=== PATIENT | female | born 1970 | race Caucasian/White ===

== ENCOUNTER 2017-06-13 05:35 | Day surgery (SDC) | payer MEDICARE, SELFPAY ==
[2017-06-13] VITALS (7 sets, daily range): BP systolic 150–180; BP diastolic 100–125; PULSE 92–120; RESP 16–18; TEMP 36.4–37; O2SAT 98–100; BMI 41.8
[2017-06-13 06:03] LABS: Internal QC Validated? YES +Cl - CLEAR BKGD; Pregnancy, Urine Negative Negative
--- NOTE | 2017-06-13 07:14 | PCM.DC.ORTHO ---
Discharge Diet: No Restrictions Discharge Activity: May Not Drive Ice area for (Minutes): 20 Keep extremity elevated above heart level: Left Arm Call your doctor if your incision/area has: Continuous Slow Oozing, Sudden Increased Bleeding, Increased Pain/ Swelling, Increased Redness, Foul Smelling Discharge Call your doctor if you observe: Fever of 101 or Higher, Coldness, Increased Pain, Numbness or Tingling, Change in Color Suture Line Care: Avoid Pulling/Pushing, Avoid Pinching/Bending Change Dressing in (Days):: 5 Remove Dressing in (days):: 5 Cleanse incision/area with: Soap & Water - after removed, otherwise keep dressing clean and dry Allergies/Adverse Reactions: Allergies aspirin Adverse Reaction (Verified 06/01/17 14:07) Nausea Medications to take at Discharge Albuterol IH (ProAir) [Proair Hfa] 2 puff PO Q4H PRN PRN 11/21/15 Iron Carbonyl [Feosol] 325 mg PO DAILY 03/26/16 Amitriptyline HCl 50 mg PO QHS 06/01/17 Cyanocobalamin (Vitamin B-12) [Vitamin B-12] 1,000 mcg PO DAILY 06/01/17 Fluticasone/Salmeterol [Advair 250/50 Mcg Diskus] 1 puff INHALATION BID 06/01/17 Levothyroxine [Synthroid] 150 mcg PO DAILY 06/01/17 Lisinopril/Hydrochlorothiazide [Zestoretic 20-12.5 mg Tablet] 1 each PO DAILY 06/01/17 Lorazepam [Ativan] 1 mg PO QHS 06/01/17 Megestrol [Megace] 40 mg PO DAILY 06/01/17 traZODone [Desyrel] 50 mg PO QHS 06/01/17 Hydrocodone Bitart/Apap 5-325 [Dinwiddie 5/325] 1 - 2 tablet PO Q6H PRN PRN 7 Days #28 tablet 06/13/17 The following prescriptions were given: Hydrocodone Bitart/Apap 5-325 [Dinwiddie 5/325] 1 - 2 tablet PO Q6H PRN PRN 7 Days #28 tablet PRN Reason: Mild-Moderate (pain scale 1-5) Please Follow Up With: Bk Cobos, When: as scheduled
--- NOTE | 2017-06-13 07:18 | DCINST_ITS ---
Discharge Diet: No Restrictions Discharge Activity: May Not Drive Ice area for (Minutes): 20 Keep extremity elevated above heart level: Left Arm Call your doctor if your incision/area has: Continuous Slow Oozing, Sudden Increased Bleeding, Increased Pain/ Swelling, Increased Redness, Foul Smelling Discharge Call your doctor if you observe: Fever of 101 or Higher, Coldness, Increased Pain, Numbness or Tingling, Change in Color Suture Line Care: Avoid Pulling/Pushing, Avoid Pinching/Bending Change Dressing in (Days):: 5 Remove Dressing in (days):: 5 Cleanse incision/area with: Soap & Water - after removed, otherwise keep dressing clean and dry Allergies/Adverse Reactions: Allergies aspirin Adverse Reaction (Verified 06/01/17 14:07) Nausea Medications to take at Discharge Albuterol IH (ProAir) [Proair Hfa] 2 puff PO Q4H PRN PRN 11/21/15 Iron Carbonyl [Feosol] 325 mg PO DAILY 03/26/16 Amitriptyline HCl 50 mg PO QHS 06/01/17 Cyanocobalamin (Vitamin B-12) [Vitamin B-12] 1,000 mcg PO DAILY 06/01/17 Fluticasone/Salmeterol [Advair 250/50 Mcg Diskus] 1 puff INHALATION BID Levothyroxine [Synthroid] 150 mcg PO DAILY 06/01/17 Lisinopril/Hydrochlorothiazide [Zestoretic 20-12.5 mg Tablet] 1 each PO DAILY Lorazepam [Ativan] 1 mg PO QHS 06/01/17 Megestrol [Megace] 40 mg PO DAILY 06/01/17 traZODone [Desyrel] 50 mg PO QHS 06/01/17 Hydrocodone Bitart/Apap 5-325 [Aulander 5/325] 1 - 2 tablet PO Q6H PRN PRN 7 Days # 28 tablet 06/13/17 The following prescriptions were given: Hydrocodone Bitart/Apap 5-325 [Aulander 5/325] 1 - 2 tablet PO Q6H PRN PRN 7 Days # 28 tablet PRN Reason: Mild-Moderate (pain scale 1-5) Please Follow Up With: Bk Cobos, When: as scheduled
[2017-06-13] MEDS: HYDROcodone Bitartrate/Apap 5/325 Tablet PO (08:50)
--- NOTE | 2017-06-13 09:20 | OP.PCM_ITS ---
Report of Operation Date of Procedure: 06/13/17 Pre-Operative Diagnosis: Severe carpal tunnel syndrome Post-Operative Diagnosis: left severe carpal tunnel syndrome left Surgery/Procedure Performed:: External neurolysis median nerve left wrist Description of Surgical Findings:: Severe carpal tunnel syndrome Type of Anesthesia:: Isis Gunderson Anesthesiologist: Joaquin Goldsmith Estimated Blood Loss (mL): 5 Fluids Replaced: See anesthesia report Description of Procedure: Surgical indications: Kamala is a 46-year-old female that has severe carpal tunnel syndrome that was diagnosed via EMG. She has failed conservative measures and has elected to undergo the above procedure Procedure description: Kamala was greeted in the preoperative area her left wrist was marked with surgical marker. Preoperative antibiotics administered. Patient was then taken or [address] in stable condition. After adequate anesthesia was obtained and airway secured the arm was prepped and draped in the usual sterile fashion. Surgical timeout was performed surgery was commenced. Incision was then made in the palm not propagating distal to Roberto's line and line with the third webspace. Blunt dissection was then carried through palmar fascia identifying the transverse flexor retinaculum. A small stab incision was then made in the flexor retinaculum exposing the underlying median nerve. A [place] elevator was then used to protect the nerve as the fracture retinaculum was transected from distal to proximal to the antebrachial fascia. This was done under direct visualization. Once this was complete the distal aspect of the nerve was protected as the remaining portion of the flexor retinaculum was transected to the palmar fat pad. The nerve was then inspected under loupe magnification and noted to be without any abnormality bruising or any additional compression. This was then irrigated and the skin was closed with 4- 0 nylon. Well-padded nonadherent dressings applied with a small splint protecting the incision. This was secured with an Cristian wrap. Patient was then taken to recovery room in stable condition. - Complications none known - Admit VTE Documentation Reason prophylaxis not ordered:: Procedure Not Indicated
== END 2017-06-13 09:37 | disposition home or self-care (01) ==
LOC: SDC 05:36 → AC 05:38
PROVIDERS: Anesthesiology; Family Provider Family Medicine; PCP Family Medicine; Visit Provider Orthopaedic Surgery
PROC: (CPT 64721; principal; 2017-06-13 07:00)
DX: G56.02 Carpal tunnel syndrome, left upper limb (principal); I10 Essential (primary) hypertension; J45.909 Unspecified asthma, uncomplicated; D64.9 Anemia, unspecified; E06.9 Thyroiditis, unspecified; F32.9 Major depressive disorder, single episode, unspecified; F41.0 Panic disorder [episodic paroxysmal anxiety]; E78.00 Pure hypercholesterolemia, unspecified; E66.01 Morbid (severe) obesity due to excess calories; Z68.41 Body mass index [BMI] 40.0-44.9, adult; Z79.899 Other long term (current) drug therapy
CPT/HCPCS: 64721; 81025; J7120; J2405

== ENCOUNTER → 2017-08-18 10:03 | Outpatient (CLI) | payer MEDICARE, SELFPAY ==
[2017-08-18 11:45] LABS: Calcium,Total 9.3 mg/dL (8.5-10.1); Cholesterol 179 mg/dL (200); Glucose 93 mg/dL (74-106); High Density Lipoprotein 31 mg/dL; T4 Free Direct 0.82 ng/dL (0.76-1.46); Triglycerides 116 mg/dL; Very Low Density Lipoprotein 23 mg/dL (5-40)
[2017-08-19 09:51] LABS: PTHIN 67.9 pg/mL (18.4-80.1)
[2017-08-19 09:56] LABS: Vitamin B12 413 pg/mL (211-911)
== END ==
PROVIDERS: Family Provider Family Medicine; PCP Family Medicine; Visit Provider Nurse Practitioner Family
DX: Z13.6 Encounter for screening for cardiovascular disorders (principal); Z13.1 Encounter for screening for diabetes mellitus; E53.8 Deficiency of other specified B group vitamins; E03.9 Hypothyroidism, unspecified
CPT/HCPCS: 36415; 80061; 82310; 82533; 82607; 82746; 82947; 83970; 84244; 84439

== ENCOUNTER → 2017-08-29 13:41 | Outpatient (CLI) | payer MEDICARE, SELFPAY ==
--- NOTE | 2017-08-29 13:57 | ECHOCS_ITS ---
Reason For Study: Heart Murmur Procedure This was a 2D Doppler, Color Flow transthoracic echocardiogram. The study was technically difficult. Exam performed in department. Left Ventricle Normal LV size. Left ventricular systolic function is normal. The estimated ejection fraction is 55 %. Transmitral and pulmonary venous doppler flow suggestive of impaired relaxation of left ventricle. No regional wall motion abnormalities noted. Right Ventricle Normal RV size. Normal systolic function. Atria Normal left atrium. Normal right atrium. Mitral Valve Normal mitral valve. Tricuspid Valve Normal tricuspid valve. Aortic Valve Trisinus/trileaflet aortic valve. Mild focal aortic valve calcification. Pulmonic Valve Normal pulmonic valve. Great Vessels Normal aortic root. The pulmonary artery is normal size. Normal inferior vena cava. Pericardium/Pleural No pericardial effusion. Medication Definity0.6ml given slow IV push to enhance endocardial definition. MMode/2D Measurements & Calculations LVIDd: 4.5 cm IVSd: 1.1 cm Ao root diam: 2.9 cm LVIDs: 3.5 cm LVPWd: 1.1 cm RVDd: 1.9 cm FS: 24.1 % LAV(MOD-bp): 14.3 ml LAV(MOD-bp) Indexed: 6.6 ml/m2 LA A4 area: 8.5 cm2 RA A4 area: 8.1 cm2 LAV(MOD-sp2): 12.3 ml LAV(MOD-sp4): 14.0 ml Doppler Measurements & Calculations MV E max abdoul: 48.8 cm/sec Lat Peak E' Abdoul: 7.0 cm/sec Med Peak E' Abdoul: 4.8 cm/sec MV A max abdoul: 60.8 cm/sec E/E' lat: 6.9 E/E' med: 10.2 MV E/A: 0.80 Ao V2 max: 125.0 cm/sec LV V1 max: 91.7 cm/sec PA V2 max: 73.0 cm/sec Ao max P.3 mmHg LV V1 max P.4 mmHg Ao V2 mean: 97.2 cm/sec Ao mean P.0 mmHg Ao V2 VTI: 18.5 cm PI end-d abdoul: 104.2 cm/sec Interpretation Summary Normal LV size. Left ventricular systolic function is normal. The estimated ejection fraction is 55 %. Transmitral and pulmonary venous doppler flow suggestive of impaired relaxation of left ventricle Contrast injection was performed. Ordering Physician: JAMES Treviño Referring Physician: JAMES Treviño Performed By: Myrna Colon, SHEREEN, RVT
[2017-09-03 08:11] LABS: Cortisol, Urinary Free 2 ug/L (Undefined); Metanephrine, Ur 85 ug/L (Undefined); Normetanephrines, Ur 626 ug/L (Undefined)
[2017-09-05 10:06] LABS: Cortisol, Free 24Ur 3 ug/24 hr (0-50); Metanephrines, 24Ur 117 ug/24 hr (45-290); Normetanephrines, 24Ur 861 ug/24 hr (82-500)
== END ==
LOC: CVS 13:42
PROVIDERS: Family Provider Family Medicine; PCP Family Medicine; Visit Provider Nurse Practitioner Family
DX: R01.1 Cardiac murmur, unspecified (principal); R79.89 Other specified abnormal findings of blood chemistry
CPT/HCPCS: 82530; 83835; 93306; Q9957; A4216; C8929

== ENCOUNTER → 2017-09-09 16:25 | Outpatient (CLI) | payer MEDICARE, SELFPAY ==
--- NOTE | 2017-09-09 16:28 | CT_ITS ---
STUDY: CT ABDOMEN WITHOUT CONTRAST REASON FOR EXAM: Female, 47 years old. Elevated creatinine. Evaluate for renal mass. RADIATION DOSAGE (If Supplied By Facility): CTDIvol = ( 33.80 ) mGy, DLP = ( 1257.84 ) mGycm TECHNIQUE: Transaxial images were obtained without intravenous contrast, and without oral contrast. Sagittal and coronal images were reconstructed. Individualized dose optimization techniques were used for this CT. COMPARISON: None. FINDINGS: The visualized lung bases are unremarkable. The visualized portions of the heart are within normal limits. Evaluation of the abdominal organs is limited without contrast. There are gallstones noted in the gallbladder. The liver, spleen, pancreas and adrenal glands demonstrate an unremarkable unenhanced appearance. There are no right renal stones. There is a 3 mm nonobstructing stone in the collecting system of the left kidney. There are no adrenal masses identified on this noncontrast study. The visualized bowel demonstrates no evidence of obstruction. The aorta is normal in caliber. There is no abdominal free air, free fluid or lymphadenopathy. There are no destructive osseous lesions. CT/Abdomen without IV Contrast IMPRESSION: Evaluation of the abdominal organs is limited without contrast. No renal mass identified on this noncontrast study. 3 mm nonobstructing left renal stone. No hydronephrosis. Gallstones. Electronically Signed: Yakov Melgoza, at 20:16 EDT Tel , Service support ,
== END ==
LOC: CT 16:27
PROVIDERS: Family Provider Family Medicine; PCP Family Medicine; Visit Provider Nurse Practitioner Family
DX: N20.0 Calculus of kidney (principal); K80.80 Other cholelithiasis without obstruction; R79.89 Other specified abnormal findings of blood chemistry
CPT/HCPCS: 74150

== ENCOUNTER → 2017-09-26 13:18 | Outpatient (CLI) | payer MEDICARE, SELFPAY ==
--- NOTE | 2017-09-26 13:19 | STE_ITS ---
Reason For Study: Chest Pain, Dyspnea On Exertion Stress Results Protocol: Massimo Protocol Maximum Predicted HR: 173 bpm Target HR: 147 bpm% Max imum Predicted HR: 87 % Heart Stage Duration Rate BPCom ment (mm:ss) (bpm) Baseline 92 104/70 No Chest Pain; No Dyspnea Massimo Protocol Stage 6/10 Chest Pain; Severe Dyspnea; Audible Expiratory I 3:00 15 0 140/72Wheezes Recovery 97 106/64 No Chest Pain; No Dyspnea; Lungs CTA Stress Duration: 3:00 mm:ss Maximum Stress HR: 150 bpmM ETS: 4 Baseline Echocardiogram Findings The estimated ejection fraction is 65 %. Stress Echo Wall motion Data Resting WMIntermediate WMStress WM Resting Wall Motion Wall Motion Stress No regional wall motion No regional wall motion abnormalities noted. abnormalities noted. EKG Data The baseline ECG demonstrates normal sinus rhythm with at rate of _ beats per minute. The patient exercised according to the regular Massimo protocol for a total duration of 3:00. The maximum heart rate attained was 150 beats per minute. This was 86% of maximum predicted heart rate. The patient exercised into stage 86 of the Massimo protocol. During stress, there were no ST or T wave changes noted to suggest ischemia. Interpretation Summary The estimated ejection fraction is 65 %. Normal, adequate, treadmill echocardiogram. Negative for ischemia by EKG and echocardiographic criteria. Rare PACs noted. Rare PVC noted. Appropriate blood pressure response to exercise. Below average exercise capacity for age. Test was terminated due to severe dyspnea and 6 out of 10 substernal chest pain. Final LVEF of 75%. Recommend clinical correlation or alternative mode of testing if coronary ischemia is suspected. Ordering Physician: Nicolás Molina Referring Physician: Nicolás Molina Performed By: Florin Whittington RCS
== END ==
LOC: CVS 13:19
PROVIDERS: Family Provider Nurse Practitioner Family; PCP Nurse Practitioner Family; Visit Provider Internal Medicine Cardiovascular Disease
DX: R06.09 Other forms of dyspnea (principal); R07.9 Chest pain, unspecified
CPT/HCPCS: 93017; 93350

== ENCOUNTER → 2017-09-30 12:10 | Outpatient (CLI) | payer MEDICARE, SELFPAY ==
--- NOTE | 2017-09-30 12:13 | NM_ITS ---
CLINICAL: 47-year-old female with history of abdominal pain. RADIONUCLIDE HEPATOBILIARY SCINTIGRAPHY COMPARISON: CT of the abdomen report 09/09/2017 FINDINGS: Following the intravenous administration of 5.2 mCi of 99m Tc Mebrofenin, hepatobiliary images reveal: 1. Relatively prompt and homogeneous radiopharmaceutical concentration is noted by a normal sized liver. No parenchymal defects are identified. 2. Gallbladder activity appears questionably defined at approximately 90 minutes following tracer injection which appears to correlate with the anatomic localization of the gallbladder on review of coronal reconstructions of CT of the abdomen dated 09/09/2017. 3. Small intestinal tract is observed at 45-60 minutes post radiopharmaceutical administration. 4. Washout of the radiopharmaceutical by the hepatic parenchyma appears qualitatively normal. NM/Hepatobilliary Img w/Pharm Int IMPRESSION: 1. Nonvisualization of the gallbladder at 60 minutes post-radiopharmaceutical administration with visualization noted at 90 minutes post tracer provision is most consistent with a component of chronic cholecystitis in patients who have fasted for more than 4 and less than 24 hours, with an intermediate to high pretest probability of hepatobiliary illness and retained normal hepatocellular function. (Neeru Jones, J Nucl Med 21: P17, 1980). Electronically Signed: Casey Aldana DO at 19:52 EDT Tel , Service support ,
== END ==
LOC: NM 12:11
PROVIDERS: Family Provider Nurse Practitioner Family; PCP Nurse Practitioner Family; Visit Provider Nurse Practitioner Family
DX: K80.20 Calculus of gallbladder without cholecystitis without obstruction (principal); R10.11 Right upper quadrant pain
CPT/HCPCS: 78227; A9537

== ENCOUNTER → 2017-10-03 08:34 | Outpatient (CLI) | payer MEDICARE, SELFPAY ==
[2017-10-03 09:02] LABS: Hematocrit 41.2 % (37-47); Hemoglobin 12.8 g/dl (12.0-15.0); Mean Corp Hgb Conc 31.1 g/gl (32-36); Mean Corpuscular Hgb 29.6 pg (27.0-32.0); Mean Corpuscular Volume 95.2 fL (81-99); Mean Platelet Vol. 9.9 fl (6.2-12.0); Platelet Count 386 K/mm3 (150-450); RBC Distribution Width CV 15.3 % (11.6-14.6); RBC Distribution Width SD 54.2 fl (35.1-43.9); Red Blood Count 4.33 M/mm3 (4.2-5.4); White Blood Count 9.2 K/mm3 (4.4-11.0)
[2017-10-03 09:04] LABS: Prothrombin Time (Protime)PT. 13.3 SECONDS (11.7-14.9)
[2017-10-03 09:05] LABS: Partial Thromboplast Time 29.7 Seconds (24.1-36.2)
[2017-10-03 09:07] LABS: Scan Indicated on CBC? Y/N NO
[2017-10-03 09:29] LABS: Anion Gap 12 (5-15); BUN 25 mg/dL (7-18); BUN/Creat Ratio 13.2 RATIO (10-20); Calcium,Total 9.4 mg/dL (8.5-10.1); Chloride 106 mmol/L (98-107); Creatinine, Serum 1.89 mg/dL (0.55-1.02); EST Glomerular Filtration Rate 30 mL/min (>60); Est Glom Filt Rate - Afr Amer 37 mL/min (>60); Glucose 103 mg/dL (74-106); Potassium 4.6 mmol/L (3.5-5.1); Sodium Level 140 mmol/L (136-145)
== END ==
PROVIDERS: Family Provider Nurse Practitioner Family; PCP Nurse Practitioner Family; Visit Provider Internal Medicine Cardiovascular Disease
DX: R07.9 Chest pain, unspecified (principal); R06.09 Other forms of dyspnea
CPT/HCPCS: 36415; 80048; 85027; 85610; 85730

== ENCOUNTER 2017-10-06 06:49 | Day surgery (SDC) | payer MEDICARE, SELFPAY ==
--- NOTE | 2017-10-03 08:49 | RAD_ITS ---
STUDY: X-RAY CHEST REASON FOR EXAM: Female, 47 years old. Precardiac catheter, history of mid chest pain x8 weeks TECHNIQUE: PA and lateral views of the chest. COMPARISON: Prior study of 05/22/2016 FINDINGS: The lungs are clear and expanded. There is no demonstrated pleural abnormality. Normal size heart. Normal mediastinum and kumar. Normal visualized pulmonary arteries. Normal visualized aortic arch and descending thoracic aorta. Normal visualized thoracic spine. Normal visualized ribs, clavicles, and shoulders. There is no demonstrated abnormality of the visualized soft tissue structures of the upper abdomen. RAD/Chest PA and Lateral IMPRESSION: Normal x-ray examination of the chest. Electronically Signed: Sajan Milian MD at 19:51 EDT , Service support ,
[2017-10-05 09:02] VITALS: BMI 44.1
[2017-10-06 07:22] LABS: Anion Gap 9 (5-15); BUN 17 mg/dL (7-18); BUN/Creat Ratio 10.5 RATIO (10-20); Calcium,Total 9.2 mg/dL (8.5-10.1); Chloride 109 mmol/L (98-107); Creatinine, Serum 1.62 mg/dL (0.55-1.02); EST Glomerular Filtration Rate 36 mL/min (>60); Est Glom Filt Rate - Afr Amer 44 mL/min (>60); Estimated Creatinine Clearance 38.63 ml/min; Glucose 107 mg/dL (74-106); Potassium 3.9 mmol/L (3.5-5.1); Sodium Level 140 mmol/L (136-145)
[2017-10-06 07:30] LABS: Pregnancy, Serum, hCG Quali. NEGATIVE Negative (0-9 Nonpreg)
--- NOTE | 2017-10-06 10:44 | CL.D_ITS ---
Patient Name: COURTNEY CARMEN Study Date: 10/06/2017 Performing: Nicolás Molina MD Ht: 64.96 inches 165 cm : 1970 Wt: 264.55 lbs 120 kg Age: 47 Gender: female BSA: 2.23 PROCEDURE(S) PERFORMED [id number]/LV CLINICAL PROFILE AND INDICATIONS Indications: Suspected CAD Heart Failure: None Stress/Imaging Stress Echocardiogram: Yes Result: NegativeStress Echocardiogram: Negative Angina Classification Anginal Classification w/in 2 Weeks: No symptoms CAD Presentations: Other: Dyspnea on exertion Comorbidities/Risk Factors: Hypertension Dyslipidemia Chronic Lung Disease CONCLUSIONS Normal LV size, wall motion,and systolic function Non obstructive coronary artery of mid LAD. Normal coronary arteries RECOMMENDATIONS Risk factor modification Management as per referring Jewelry Dipper Start zocor 20mg po qhs and repeat FLP in 6 weeks' time. DESCRIPTION OF PROCEDURE The patient arrived to the procedure lab. The risks and benefits of the procedure as well as a full d escription of our services here and current unavailability of surgical backup were fully explained to the patient and/or their significant other prior to the catheterization. The Timeout was completed, verifying the correct patient and procedure. The patient's procedural site was prepped and draped in the usual fashion. Local anesthetic was given subcutaneously to right groin region with Lidocaine 2%. Using a modified Seldinger technique, arterial access was obtained via the right femoral artery, a 4 Fr sheath was inserted Left Coronary Artery selective angiography was performed in multiple views us ing a 4 Fr. JL5 catheter. Right Coronary Artery selective angiography was then performed in multiple views using a 4 Fr. 3DRC catheter. Left Ventriculography was performed in HERNANDEZ projection using a 4 Fr . Pigtail catheter. LV to AO pullback pressures were then recorded.The arterial sheath was pulled and manual compression applied until hemostasis is achieved. CORONARY ANGIOGRAPHY DOMINANCE: Right Dominant LEFT HEART ASSESSMENT Left Ventricular Ejection Fraction: by LV Gram 65 % Normal LV wall motion Normal Left Ventricular systolic function Normal Left Ventricular End Diastolic Pressure LEFT MAIN: Angiographically normal LEFT ANTERIOR DECENDING ARTERY: MID LAD: Mild luminal irregularities less than 30% CIRCUMFLEX ARTERY: Angiographically normal RAMUS: Angiographically normal RIGHT CORONARY ARTERY: Angiographically normal COMPLICATIONS No Complications PROCEDURE MEDICATIONS Versed 1 mg IV Versed 1 mg IV Oxygen: 2 L/min via nasal cannula IV Bolus: .9 NaCl 450 ml total 10/06/2017 10:11:56 SUMMARY OF HEMODYNAMIC DATA Time AIR REST ECG 07:27:02 AO 138/90 (109) SA 10:31:15 LV 137/-20, 9 10:36:24 LV 141/-22, 9 10:36:31 LVp 137/-23, 12 10:36:35 AOp 137/80 (102) 10:36:40 Signed By Nicolás Molina MD On 10/06/2017 10:43:50 Nicolás Molina MD
== END 2017-10-06 15:19 | disposition home or self-care (01) ==
LOC: CLSP 06:50
PROVIDERS: Family Provider Nurse Practitioner Family; PCP Nurse Practitioner Family; Visit Provider Internal Medicine Cardiovascular Disease
DX: R07.9 Chest pain, unspecified (principal); R06.09 Other forms of dyspnea; I10 Essential (primary) hypertension; J45.909 Unspecified asthma, uncomplicated; D50.9 Iron deficiency anemia, unspecified; K90.0 Celiac disease; E03.9 Hypothyroidism, unspecified; F41.9 Anxiety disorder, unspecified; E66.01 Morbid (severe) obesity due to excess calories; Z68.41 Body mass index [BMI] 40.0-44.9, adult; R01.1 Cardiac murmur, unspecified; Z79.899 Other long term (current) drug therapy
CPT/HCPCS: 36415; 71046; 80048; 84703; 93458; 99152; 99153; J7040; C1769; C1894; Q9967

== ENCOUNTER 2017-11-07 07:39 | Day surgery (SDC) | payer MEDICARE, SELFPAY ==
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
[2017-11-07] VITALS (8 sets, daily range): BP systolic 101–126; BP diastolic 58–83; PULSE 70–111; RESP 16–18; TEMP 36.7–37.1; O2SAT 95–100; BMI 43.5
[2017-11-07 08:05] LABS: Internal QC Validated? YES +Cl - CLEAR BKGD; Pregnancy, Urine Negative Negative
[2017-11-07] MEDS: Cefazolin 2 GM in 0.9% Normal Saline 100 ML IV (10:11)
--- NOTE | 2017-11-07 10:38 | PCM.IMDPSTOP ---
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
[2017-11-07] MEDS: HYDROcodone Bitartrate/Apap 5/325 Tablet PO (11:40)
== END 2017-11-07 12:18 | disposition home or self-care (01) ==
LOC: SDC 07:39 → AC 07:40
PROVIDERS: Anesthesiology; Family Provider Nurse Practitioner Family; PCP Nurse Practitioner Family; Visit Provider Orthopaedic Surgery
PROC: (CPT 64721; principal; 2017-11-07 09:15)
DX: G56.01 Carpal tunnel syndrome, right upper limb (principal); I10 Essential (primary) hypertension; J45.909 Unspecified asthma, uncomplicated; E07.9 Disorder of thyroid, unspecified; F32.9 Major depressive disorder, single episode, unspecified; F41.0 Panic disorder [episodic paroxysmal anxiety]; K21.9 Gastro-esophageal reflux disease without esophagitis; E78.00 Pure hypercholesterolemia, unspecified; Z79.899 Other long term (current) drug therapy
CPT/HCPCS: 01810; 64721; 81025; J7120; J2405

== ENCOUNTER → 2017-11-17 11:06 | Outpatient (CLI) | payer MEDICARE, SELFPAY ==
[2017-11-17 13:24] LABS: AST(SGOT) 20 U/L (15-37); Alanine Aminotransfer ALT/SGPT 32 U/L (13-56); Albumin, Serum 3.4 g/dL (3.2-5.0); Alkaline Phosphatase 90 U/L (45-117); Bilirubin, Direct 0.12 mg/dL (0.00-0.30); Cholesterol 102 mg/dL (200); High Density Lipoprotein 22 mg/dL; Protein, Total 7.4 g/dL (6.4-8.2); Triglycerides 149 mg/dL; Very Low Density Lipoprotein 30 mg/dL (5-40)
== END ==
PROVIDERS: Family Provider Nurse Practitioner Family; PCP Nurse Practitioner Family; Visit Provider Internal Medicine Cardiovascular Disease
DX: E78.5 Hyperlipidemia, unspecified (principal)
CPT/HCPCS: 36415; 80061; 80076

== ENCOUNTER → 2017-11-29 09:36 | Outpatient (CLI) | payer MEDICARE, SELFPAY ==
--- NOTE | 2017-11-29 09:55 | RAD_ITS ---
STUDY: SNIFF STUDY. REASON FOR EXAM: Female, 47 years old. Dyspnea. FLUOROSCOPY TIME (if supplied): (0:13) minutes/seconds TECHNIQUE: A sniff study was performed. Imaging of both hemidiaphragms was obtained. COMPARISON: None. FINDINGS: There is normal movement of the right and left hemidiaphragms. RAD/Chest Sniff Test Fluoro Only IMPRESSION: Normal movement of the right and left hemidiaphragms. Electronically Signed: Seun Vieira MD at 14:04 EDT Tel [phone], Service support ,
== END ==
PROVIDERS: Family Provider Nurse Practitioner Family; PCP Nurse Practitioner Family; Referring Provider Internal Medicine Pulmonary Disease; Visit Provider Internal Medicine Pulmonary Disease
DX: R06.00 Dyspnea, unspecified (principal)
CPT/HCPCS: 76000

== ENCOUNTER → 2017-12-13 11:10 | Outpatient (CLI) | payer MEDICARE, SELFPAY ==
[2017-12-13 11:46] LABS: Absolute Lymphocyte Count 2.26 X10^3/ul (0.83-4.51); Absolute Neutrophil Count 4.6 X10^3/uL (2.0-7.7); Basophil# 0.04 X10^3/uL; Basophil% 0.5 % (0-1); Eosinophil# 0.41 X10^3/uL; Eosinophils% 5.1 % (0-5); Hematocrit 37.7 % (37-47); Hemoglobin 11.9 g/dl (12.0-15.0); Lymphocyte # 2.26 X10^3/ul (4.0); Lymphocyte % 28.3 % (19-41); Mean Corp Hgb Conc 31.6 g/gl (32-36); Mean Corpuscular Hgb 29.9 pg (27.0-32.0); Mean Corpuscular Volume 94.7 fL (81-99); Mean Platelet Vol. 10.1 fl (6.2-12.0); Monocyte# 0.68 X10^3/uL; Monocyte% 8.5 % (0-10); Neutrophil # 4.56 X10^3/uL (2.7-7.7); Neutrophil % 57.2 % (47-70); Platelet Count 340 K/mm3 (150-450); RBC Distribution Width CV 13.2 % (11.6-14.6); RBC Distribution Width SD 44.2 fl (35.1-43.9); Red Blood Count 3.98 M/mm3 (4.2-5.4)
[2017-12-13 11:47] LABS: POSITIVE COUNT NO; POSITIVE DIFFERENTIAL NO; POSITIVE MORPHOLOGY NO
[2017-12-13 12:48] LABS: ALB/GLOB Ratio 0.8 RATIO (0.9-2.4); AST(SGOT) 16 U/L (15-37); Alanine Aminotransfer ALT/SGPT 30 U/L (13-56); Albumin, Serum 3.1 g/dL (3.2-5.0); Alkaline Phosphatase 86 U/L (45-117); Anion Gap 9 (5-15); BUN 16 mg/dL (7-18); BUN/Creat Ratio 12.5 RATIO (10-20); Calcium,Total 9.4 mg/dL (8.5-10.1); Chloride 110 mmol/L (98-107); Cholesterol 111 mg/dL (200); Creatinine, Serum 1.28 mg/dL (0.55-1.02); EST Glomerular Filtration Rate 47 mL/min (>60); Est Glom Filt Rate - Afr Amer 57 mL/min (>60); Glucose 91 mg/dL (74-106); High Density Lipoprotein 26 mg/dL; Iron 55 ug/dL (50-170); Iron Binding Capacity,Total 343 ug/dL (250-450); Potassium 4.5 mmol/L (3.5-5.1); Protein, Total 7.1 g/dL (6.4-8.2); Sodium Level 141 mmol/L (136-145); T4 Free Direct 1.35 ng/dL (0.76-1.46); Thyroid Stim Hormone (TSH) 0.08 uIU/mL (0.358-3.74); Triglycerides 113 mg/dL; Very Low Density Lipoprotein 23 mg/dL (5-40)
[2017-12-18 07:32] LABS: Renin, Plasma 14.074 ng/mL/hr (0.167-5.380)
== END ==
PROVIDERS: Family Provider Nurse Practitioner Family; PCP Nurse Practitioner Family; Referring Provider Nurse Practitioner Family; Visit Provider Nurse Practitioner Family
DX: D50.9 Iron deficiency anemia, unspecified (principal); I10 Essential (primary) hypertension; E78.5 Hyperlipidemia, unspecified; E03.9 Hypothyroidism, unspecified; R79.89 Other specified abnormal findings of blood chemistry; R73.01 Impaired fasting glucose
CPT/HCPCS: 36415; 80053; 80061; 83036; 83540; 83550; 84244; 84439; 84443; 85025

== ENCOUNTER → 2018-03-08 10:06 | Outpatient (CLI) | payer MEDICARE, SELFPAY ==
[2017-11-07 08:05] VITALS: BMI 43.5
[2018-03-08 11:41] LABS: BNP,B-Type NATRIURETIC PEPTIDE 11.6 pg/mL (0-100)
[2018-03-08 11:44] LABS: ALB/GLOB Ratio 1.2 RATIO (0.9-2.4); AST(SGOT) 35 U/L (15-37); Alanine Aminotransfer ALT/SGPT 27 U/L (13-56); Albumin, Serum 4.5 g/dL (3.2-5.0); Alkaline Phosphatase 60 U/L (45-117); Anion Gap 12 (5-15); BUN 12 mg/dL (7-18); BUN/Creat Ratio 7.6 RATIO (10-20); Calcium,Total 9.5 mg/dL (8.5-10.1); Chloride 106 mmol/L (98-107); Creatinine, Serum 1.58 mg/dL (0.55-1.02); EST Glomerular Filtration Rate 37 mL/min (>60); Est Glom Filt Rate - Afr Amer 45 mL/min (>60); Globulin 3.9 g/dL (2.2-4.2); Glucose 125 mg/dL (74-106); Potassium 4.1 mmol/L (3.5-5.1); Protein, Total 8.4 g/dL (6.4-8.2); Sodium Level 140 mmol/L (136-145)
== END ==
PROVIDERS: Family Provider Nurse Practitioner Family; PCP Nurse Practitioner Family; Referring Provider Nurse Practitioner Primary Care; Visit Provider Nurse Practitioner Primary Care
DX: E87.70 Fluid overload, unspecified (principal); R06.02 Shortness of breath
CPT/HCPCS: 36415; 80053; 83880

== ENCOUNTER → 2018-04-21 12:47 | Outpatient (CLI) | payer MEDICARE, SELFPAY ==
[2018-03-21 13:10] VITALS: BMI 46.4
--- NOTE | 2018-04-21 12:49 | CT_ITS ---
STUDY: CT CHEST WITH CONTRAST REASON FOR EXAM: Female, 47 years old. Dyspnea, heart murmur RADIATION DOSAGE (If Supplied By Facility): CTDIvol = ( 16.72 ) mGy, DLP = ( 630.92 ) mGycm TECHNIQUE: Transaxial imaging was performed following intravenous administration of 100ML ml of Isovue 300 contrast material. Multiplanar coronal and sagittal images were reformatted. Individualized dose optimization techniques were used for this CT. COMPARISON: None. FINDINGS: The lungs are normal. There is no demonstrated pleural abnormality. Normal heart size. No significant pericardial thickening. Normal mediastinum. Normal hilar regions. Normal enhanced pulmonary arteries. Normal aorta arch and descending thoracic aorta. Left vertebral artery arises from the aortic arch, normal variant. Mild spondylosis of the thoracic spine. There is no demonstrated abnormality of the visualized upper abdomen. CT/Chest WITH Contrast IMPRESSION: 1. Normal enhanced CT Chest examination. Electronically Signed: Eulalio Holt MD at 15:31 EST , Service support ,
== END ==
PROVIDERS: Family Provider Nurse Practitioner Family; PCP Nurse Practitioner Family; Referring Provider Internal Medicine Pulmonary Disease; Visit Provider Internal Medicine Pulmonary Disease
DX: R06.00 Dyspnea, unspecified (principal)
CPT/HCPCS: 71260; Q9967

== ENCOUNTER 2018-05-17 14:46 | Emergency (ER) | payer MEDICARE, SELFPAY ==
[2018-03-21 13:10] VITALS: BMI 46.4
[2018-05-17 14:47] VITALS: BP 126/75; PULSE 77; RESP 14; TEMP 37.2; O2SAT 98; BMI 48.0
--- NOTE | 2018-05-17 15:19 | RAD_ITS ---
STUDY: X-RAY - LEFT FOOT CLINICAL: Pain and bruising, third toe injury. TECHNIQUE: 3 view(s) of the foot. COMPARISON: None. FINDINGS: There is a small plantar calcaneal enthesophyte. Normal visualized subtalar, talonavicular, calcaneocuboid, tarsal and tarsometatarsal articulations. Normal metatarsi. Normal metatarsophalangeal joint of the great toe. Normal tibial and fibular sesamoid bones. Normal interphalangeal joint of the great toe. Normal phalanges of the great toe. Normal second through fifth metatarsophalangeal joints. Normal interphalangeal joints and phalanges of the lesser toes. The soft tissue structures are unremarkable. RAD/Foot min 3 Views IMPRESSION: Small plantar calcaneal enthesophyte. No demonstrated fracture. Electronically Signed: Javad Castillo MD at 16:02 EDT Tel , Service support ,
--- NOTE | 2018-05-17 15:21 | ED.DCSUM_ITS ---
- ER Visit Summary Date of Service: 05/17/18 Chief Complaint: Left third toe injury History of Present Illness: The patient is a 47 F history of renal insufficiency, hypertension, gout and hyperthyroidism. Patient states on Tuesday she accidentally kicked a chair with her left foot causing pain, swelling and bruising her left third toe. No other injuries. She did not fall. No prior foot surgery or fractures that she is aware of. Physical Examination: Well-appearing middle-age female. Vital signs are stable. She is afebrile. No distress. H EENT exam unremarkable. Lungs clear to auscultation bilaterally. Heart regular rate and rhythm no murmur. Chest wall nontender. Abdomen soft and nontender. Obese. She is moving all 4 extremities. Normal range of motion. No deformity. The left foot third toe is bruised. And tender along the distal and proximal phalanx. There is no gross bony deformity. Nails are unkempt. Skin is intact. She has a normal DP pulse. Normal sensation in the left foot. Left ankle, knee and hip are nontender. Neurologically she is awake and alert. Test Results: Left foot x-ray shows no acute abnormality I do not see any obvious fracture on the third toe. Emergency Department Course and Treatment: Ice and elevate. Motrin and Tylenol for pain. Postop shoe. Follow-up as needed. I did discuss the patient she could have a nondisplaced non-radiographic evidence of fracture that we would just treat conservatively. Treatment Plan: Ice and elevate. Tylenol Motrin for pain. Disposition: Discharge Impression: Acute left foot, specifically left third toe contusion This note was generated with [employer] dictation software. It may contain incorrect words, spelling, and punctuation that were not noted in review of the chart prior to signing ED Disposition - Plan for ED Patient: Disposition: Home or Assisted Living Referrals: Casey Lutz, NICHOLE-C [Primary Care Provider] -
--- NOTE | 2018-05-17 15:24 | ED.DEP ---
ED Disposition - Plan for ED Patient: Disposition: Home or Assisted Living Instructions: ED Contusion Foot Referrals: Casey Lutz, NICHOLE-C [Primary Care Provider] - As Needed Additional Instructions: Ice elevate. Motrin and Tylenol for pain. Postop shoe. At this time there is no obvious fractures on the x-ray. You could have a nondisplaced fracture that is not evident on the x-ray we would not treated any differently.
[2018-05-17 16:02] VITALS: BP 129/77; PULSE 62; RESP 15; O2SAT 98
== END 2018-05-17 16:04 | disposition home or self-care (01) ==
LOC: ED 15:41
PROVIDERS: Emergency Provider Emergency Medicine; Family Provider Nurse Practitioner Family; PCP Nurse Practitioner Family
DX: S90.122A Contusion of left lesser toe(s) without damage to nail, initial encounter (principal); W22.09XA Striking against other stationary object, initial encounter; Y93.9 Activity, unspecified; Y92.9 Unspecified place or not applicable; I10 Essential (primary) hypertension; N28.9 Disorder of kidney and ureter, unspecified; E78.5 Hyperlipidemia, unspecified; Z79.899 Other long term (current) drug therapy
CPT/HCPCS: 73630; 99283

== ENCOUNTER 2018-07-26 06:11 | Emergency (ER) | payer MEDICARE, SELFPAY ==
[2018-07-26 06:12] VITALS: BP 162/101; BP 171/81; PULSE 62; PULSE 68; RESP 14; RESP 20; TEMP 37.1; O2SAT 97; O2SAT 98; BMI 42.7
--- NOTE | 2018-07-26 07:16 | ED.DCSUM_ITS ---
- ER Visit Summary Date of Service: 07/26/18 Chief Complaint: Cough and congestion History of Present Illness: The patient is a 47 F who presents with cough and congestion that has been getting worse over the past 5 days. Patient states she has had upper respiratory congestion and cough. Patient denies any sputum production. Patient admits to fever yesterday of 101.8 but denies any fevers currently. Patient admits to some rhinorrhea and sore throat. Patient states she has been taking her inhaler at home with no relief. Patient states she did have an episode of vomiting after coughing but denies any other nausea. Patient also admits to a headache and generalized weakness. Physical Examination: Vital signs are stable except for an elevated blood pressure of 171/81. Patient is afebrile. Patient is in no acute distress. Oral mucosa is pink and moist. Neck is supple. Trachea is midline. There is no JVD noted. Heart was regular rate and rhythm. Lungs showed few scattered rhonchi. There is good respiratory effort noted. Abdomen is soft and nontender. Bowel sounds are normal. Cranial nerves II through XII are intact. There are no focal motor or sensory deficits noted. Test Results: PA and lateral chest x-ray was obtained. There is no acute cardiopulmonary process noted. This is interpreted by the radiologist and reviewed by myself. EKG showed sinus bradycardia with a rate of 50. There are no acute ST or T wave changes. Emergency Department Course and Treatment: Patient was given DuoNeb aerosol here. Patient felt better on reevaluation. Patient was instructed to continue her inhalers as previously prescribed. Patient was instructed to follow-up with her primary care physician in 5 to 7 days. Patient understood and was agreeable with the plan. All questions were answered. Disposition: Discharge home Impression: Viral bronchitis This note was generated with [employer] dictation software. It may contain incorrect words, spelling, and punctuation that were not noted in review of the chart prior to signing ED Disposition - Plan for ED Patient: Disposition: Home or Assisted Living Diagnosis: Viral bronchitis Instructions: ED Upper Resp Infec No Abx Tx Referrals: Casey Lutz, NICHOLE-C [Primary Care Provider] - 5-7 Days
[2018-07-26] MEDS: Ipratropium/Albuterol Sulfate 3 ML AMPUL.NEB INHALATION (07:18)
[2018-07-26 07:20] VITALS: PULSE 57; RESP 18
--- NOTE | 2018-07-26 07:30 | RAD_ITS ---
STUDY: X-RAY CHEST REASON FOR EXAM: Female, 47 years old. Cough TECHNIQUE: PA and lateral views of the chest. COMPARISON: 10/03/2017 FINDINGS: The lungs are clear and expanded. There is no demonstrated pleural abnormality. There is mild cardiac enlargement. Normal mediastinum and kumar. Normal visualized pulmonary arteries. Normal visualized aortic arch and descending thoracic aorta. Normal visualized thoracic spine. Normal visualized ribs, clavicles, and shoulders. There is no demonstrated abnormality of the visualized soft tissue structures of the upper abdomen. RAD/Chest PA and Lateral IMPRESSION: Normal x-ray examination of the chest. Electronically Signed: Elver Martini DO at 8:07 EDT Tel , Service support ,
--- NOTE | 2018-07-26 07:50 | EKG12_ITS ---
Test Reason : CP Blood Pressure : / mmHG Vent. Rate : 050 BPM Atrial Rate : 050 BPM P-R Int : 138 ms QRS Dur : 080 ms QT Int : 414 ms P-R-T Axes : 042 023 008 degrees QTc Int : 377 ms Sinus bradycardia Nonspecific T wave abnormality Abnormal ECG Confirmed by DEAN GONZALEZ, SAMI ([id number]), make up editor BRIANNA BRAVO ([id number]) on 07/31/2018 1:48:14 PM Referred By: GLO Confirmed By:SAMI MORAN MD
[2018-07-26 08:34] VITALS: BP 162/94; PULSE 62; RESP 14; O2SAT 96
== END 2018-07-26 08:37 | disposition home or self-care (01) ==
PROVIDERS: Emergency Provider Emergency Medicine; Family Provider Nurse Practitioner Family; PCP Nurse Practitioner Family
DX: J20.8 Acute bronchitis due to other specified organisms (principal); I10 Essential (primary) hypertension; J45.909 Unspecified asthma, uncomplicated; K21.9 Gastro-esophageal reflux disease without esophagitis; E03.9 Hypothyroidism, unspecified; F41.9 Anxiety disorder, unspecified; E66.9 Obesity, unspecified; Z68.41 Body mass index [BMI] 40.0-44.9, adult; Z79.899 Other long term (current) drug therapy
CPT/HCPCS: 71046; 93005; 94640; 99282

== ENCOUNTER → 2018-10-24 07:51 | Outpatient (CLI) | payer MEDICARE, SELFPAY ==
[2018-10-19 13:44] VITALS: BMI 44.9
[2018-10-24 10:12] LABS: AST(SGOT) 24 U/L (15-37); Alanine Aminotransfer ALT/SGPT 21 U/L (13-56); Albumin, Serum 4.5 g/dL (3.2-5.0); Alkaline Phosphatase 60 U/L (45-117); Bilirubin, Direct 0.15 mg/dL (0.00-0.30); Cholesterol 202 mg/dL (200); Globulin 3.8 g/dL (2.2-4.2); High Density Lipoprotein 46 mg/dL; Protein, Total 8.3 g/dL (6.4-8.2); Triglycerides 85 mg/dL; Very Low Density Lipoprotein 17 mg/dL (5-40)
== END ==
PROVIDERS: Family Provider Nurse Practitioner Family; PCP Nurse Practitioner Family; Referring Provider Internal Medicine Cardiovascular Disease; Visit Provider Internal Medicine Cardiovascular Disease
DX: E78.5 Hyperlipidemia, unspecified (principal)
CPT/HCPCS: 36415; 80061; 80076

== ENCOUNTER 2018-11-05 08:58 | Emergency (ER) | payer MEDICARE, SELFPAY ==
[2018-10-19 13:44] VITALS: BMI 44.9
[2018-11-05] VITALS (8 sets, daily range): BP systolic 133–183; BP diastolic 89–124; PULSE 60–81; RESP 17–18; TEMP 37; O2SAT 97–98; BMI 43.4
--- NOTE | 2018-11-05 09:31 | RAD_ITS ---
STUDY: X-RAY CHEST REASON FOR EXAM: Female, 48 years old. Chest pain. TECHNIQUE: Single AP portable view of the chest. COMPARISON: 07/26/2018. FINDINGS: There again is mild elevation of the right hemidiaphragm. The lungs are clear and expanded. There is no demonstrated pleural abnormality. There is borderline cardiomegaly. Normal mediastinum and kumar. Normal visualized pulmonary arteries. Normal visualized aortic arch and descending thoracic aorta. The bony structures are unchanged. There is no demonstrated abnormality of the visualized soft tissue structures of the upper abdomen. RAD/Chest PA and Lateral IMPRESSION: No active pulmonary disease. Electronically Signed: Fredrick Sharpe MD at 11:04 EDT Tel , Service support ,
--- NOTE | 2018-11-05 09:31 | CT_ITS ---
STUDY: CT BRAIN WITHOUT CONTRAST REASON FOR EXAM: Female, 48 years old. Headache and cloudy vision. History of migraine. RADIATION DOSAGE (If Supplied By Facility): CTDIvol = ( 44.99 ) mGy, DLP = ( 796.11 ) mGycm TECHNIQUE: Transaxial CT imaging of the brain was performed without administration of intravenous contrast material. Individualized dose optimization techniques were used for this CT. COMPARISON: No relevant priors. FINDINGS: Normal soft tissue structures. Normal calvarium. Normal size ventricles and extra-axial spaces for the patient's age. Normal white matter tracts of the cerebral hemispheres. Normal basal ganglia and thalami. Normal brainstem. Normal cerebellum. There is no intracranial hemorrhage. There are no findings of an acute ischemic infarction. Normal visualized paranasal sinuses. CT/Brain/Head without Contrast IMPRESSION: Normal unenhanced CT scan of the brain. Electronically Signed: Fredrick Sharpe MD at 10:54 EDT Tel , Service support ,
--- NOTE | 2018-11-05 09:31 | EKG12_ITS ---
Test Reason : SOB Blood Pressure : / mmHG Vent. Rate : 071 BPM Atrial Rate : 071 BPM P-R Int : 150 ms QRS Dur : 086 ms QT Int : 370 ms P-R-T Axes : 032 -39 007 degrees QTc Int : 402 ms Normal sinus rhythm Left axis deviation Inferior infarct , age undetermined Abnormal ECG Confirmed by MIGUEL GONZALEZ, MAGALI ([id number]), video editor ZANDER MAYER ([id number]) on 11/07/2018 9:29:33 AM Referred By: Confirmed By:MAGALI RIVERA MD
--- NOTE | 2018-11-05 09:34 | ED.DCSUM_ITS ---
History of Present Illness Chief Complaint: Headache Informant: Patient Onset: Month(s) - 1 Context: Gradual Onset Timing: Continuous, Waxes and wanes Narrative: Patient is a 48-year-old female with history of hypertension, hyperlipidemia, remote history of asthma and migraines as well as obstructive sleep apnea (patient is compliant with her BiPAP). She is presenting with 1 month of persistent headache. She states is waxing waiting. She notes that she has associated blurry vision with it. Patient took total of 10 500 mg Tylenol tablets yesterday with no relief of her symptoms. Patient notes that she is also feeling short of breath now. She states this is been worsening over the past month. She also is having central chest pain which is also worsened over the past month. She notes that she is supposed to see her clinical business analyst, Dr. Molina, tomorrow. She states she sees them for high blood pressure and high cholesterol. Patient denies any history of cardiac catheterization or coronary artery disease. Patient is mostly concerned with her headache. She states it is made worse with loud sounds and lights. She notes that she had a history of migraines when she was much younger but has not had any recently. She does have some associated neck pain. She denies any falls or trauma. She denies any fever or chills. She has had some mild nausea but none currently. She denies any abdominal pain. Denies any other complaints at this time. - Past Medical History (1) Hyperlipidemia Status: Chronic Past Medical History - Allergies and Home Meds Allergies/Adverse Reactions: Allergies naproxen [From Naprosyn] Adverse Reaction (Intermediate, Verified 11/05/18 08:58) Nausea aspirin Adverse Reaction (Verified 11/05/18 08:58) Nausea Primary Care Physician: Casey Lutz, NICHOLE-C [Primary Care Provider] - Prior records reviewed: Yes Past Medical History: - - Hypertension, hyperlipidemia, obstructive sleep apnea, asthma, migraines Surgical History: - - , heart catheterization per chart review Smoking Status: Never smoker - Family History Maternal Family History: Family History (Last Reviewed 10/19/18 @ 13:44 by Ena Montiel) Father No problems noted. Mother CAD (coronary artery disease) Myocardial infarction, Onset Age: 55 Hypertension Sister CAD (coronary artery disease) Family History: Reports: Diabetes, Heart Disease, Hypertension Paternal Family History: Family History (Last Reviewed 10/19/18 @ 13:44 by Ena Montiel) Father No problems noted. Mother CAD (coronary artery disease) Myocardial infarction, Onset Age: 55 Hypertension Sister CAD (coronary artery disease) Family History: Reports: Diabetes, Heart Disease, Hypertension Review of Systems All systems negative except as indicated Eyes: Reports: Blurred Vision - bilaterally, - - Photosensitivity Cardiovascular: Reports: Chest pain Respiratory: Reports: Dyspnea, Dyspnea on exertion. Denies: Cough Gastrointestinal: Reports: Nausea Neurological: Reports: Headache Physical Exam Vital Signs/Narrative: Vital Signs Temp Pulse Resp BP Pulse Ox 11/05/18 09:11 18 139/104 H 97 11/05/18 08:58 98.6 F 81 17 141/102 H 98 Inital Vital Signs reviewed: Yes General: Well nourished, Well developed, No Acute Distress, - - Sitting in dark room on initial exam Head: Normocephalic, Atraumatic Eyes: Perrl, EOMI ENT: Moist mucous membranes, No rhinorrhea Neck: Supple, Nontender, - - No nuchal rigidity, no meningeal signs Cardiovascular: Regular rate, Regular rhythm, No murmurs Respiratory: No distress, CTA bilaterally, Chest nontender Abdomen: Soft, Nontender, Nondistended, Normal bowel sounds Back: Nontender, Normal Inspection Extremities: Nontender, No edema Skin: Normal color, No rash Neurological: Alert, Oriented x3, Cranial nerves II-XII grossly intact, Normal Strength, Normal Sensation Psychological: Normal affect, Normal Mood Diagnostic/Tx/Re-eval Chest X-Ray - ED: 2 View, Read by ED Physician, Read by Radiologist Clinical Impression(s) from Imaging Studies Brain CT 11/05/18 09:31 IMPRESSION: Normal unenhanced CT scan of the brain. Electronically Signed: Fredrick Sharpe MD at 10:54 EDT Tel , Service support , Chest X-Ray 11/05/18 09:31 IMPRESSION: No active pulmonary disease. Electronically Signed: Fredrick Sharpe MD at 11:04 EDT Tel , Service support , Laboratory Data 11/05/18 11/05/18 11/05/18 09:40 10:20 10:20 WBC 8.0 RBC 4.24 Hgb 13.4 Hct 41.0 MCV 96.7 MCH 31.6 MCHC 32.7 RDW Std Deviation 63.0 H RDW Coeff of Alfredo 17.5 H Plt Count 269 MPV 11.1 Immature Gran % (Auto) 0.500 Neut % (Auto) 66.8 Lymph % (Auto) 24.4 Benton % (Auto) 6.6 Eos % (Auto) 1.1 Baso % (Auto) 0.6 Absolute Neuts (auto) 5.3 Absolute Lymphs (auto) 1.95 Nucleated RBC % 0 PT INR Sodium 141 Potassium 3.8 Chloride 108 H Carbon Dioxide 22.0 Anion Gap 11 BUN 12 Creatinine 1.67 H Estim Creat Clear Calc 38.57 Est GFR (MDRD) Af Amer 42 L Est GFR (MDRD) Non-Af 35 L BUN/Creatinine Ratio 7.2 L Glucose 94 Calcium 9.5 Total Bilirubin 0.50 Direct Bilirubin 0.14 AST 24 ALT 20 Alkaline Phosphatase 59 Troponin I Total Protein 7.8 Albumin 4.3 Globulin 3.5 Urine Color Yellow Urine Clarity Sl. Cloudy Urine pH 6.0 Ur Specific [place] 1.020 Urine Protein 15 H Urine Glucose (UA) Normal Urine Ketones 5 H Urine Occult Blood Negative Urine Nitrite Negative Urine Bilirubin Negative Urine Urobilinogen 1 H Ur Leukocyte Esterase Negative Urine RBC 0 SEEN Urine WBC 0-5 SEEN Ur Squamous Epith Cells 0-5 SEEN Urine Bacteria 1+ Urine Mucus 0 SEEN Acetaminophen 11/05/18 11/05/18 11/05/18 10:20 10:20 10:20 WBC RBC Hgb Hct MCV MCH MCHC RDW Std Deviation RDW Coeff of Alfredo Plt Count MPV Immature Gran % (Auto) Neut % (Auto) Lymph % (Auto) [place] % (Auto) Eos % (Auto) Baso % (Auto) Absolute Neuts (auto) Absolute Lymphs (auto) Nucleated RBC % PT 14.0 INR 1.1 Sodium Potassium Chloride Carbon Dioxide Anion Gap BUN Creatinine Estim Creat Clear Calc Est GFR (MDRD) Af Amer Est GFR (MDRD) Non-Af BUN/Creatinine Ratio Glucose Calcium Total Bilirubin Direct Bilirubin AST ALT Alkaline Phosphatase Troponin I < 0.015 Total Protein Albumin Globulin Urine Color Urine Clarity Urine pH Ur Specific [place] Urine Protein Urine Glucose (UA) Urine Ketones Urine Occult Blood Urine Nitrite Urine Bilirubin Urine Urobilinogen Ur Leukocyte Esterase Urine RBC Urine WBC Ur Squamous Epith Cells Urine Bacteria Urine Mucus Acetaminophen < 2.0 L Diagnostic Data Brain CT 11/05/18 09:31 IMPRESSION: Normal unenhanced CT scan of the brain. Electronically Signed: Fredrick Sharpe MD at 10:54 EDT Tel , Service support , Chest X-Ray 11/05/18 09:31 IMPRESSION: No active pulmonary disease. Electronically Signed: Fredrick Sharpe MD at 11:04 EDT Tel , Service support , - Rhythm Strip Rhythm Strip: Sinus Rhythm Rate: 71 Ectopy: None - EKG Initial EKG Interpretation: Sinus Rhythm, - - AR interval 150 QRS 86 QT/QTc 370/402 Left axis deviation Normal ST segments I Interpreted by emergency medicine physician - Medical Decision Making Patient is evaluated for headache as well as multiple stool symptoms including chest pain, shortness of breath and myalgias. She appears nontoxic in no acute distress. Her vital signs are normal. Patient is PE RC negative I do not suspect PE as a cause of her symptoms. Her headache is consistent with a migraine however patient states she has not had migraines in quite some time so a head CT is obtained. This is negative. Patient does not have any meningeal signs and I do not suspect an infectious cause. Patient does comment that she is having chest pain so troponin and EKG are obtained. These are negative. Patient's chest pain is been going on for a month as well as her headache so I do not suspect ACS at this time. Patient is given a breathing treatment does have improvement. She is given a migraine cocktail prior to head CT which consist of Reglan and IV fluids. Patient does have an akathisia reaction to the Reglan and is given a dose of Benadryl. After CT is negative she is given a one-time dose of Toradol. Patient does have an elevated creatinine however she appears to have a history of CKD and this is likely her baseline. I do not think a one-time dose of Toradol because of MARYANA. Patient had improvement of her symptoms. I believe she is safe for outpatient follow-up. While in the ER patient does have some elevated blood pressure readings. I suspect this was because patient was laid on her blood pressure cuff and these were falsely elevated. After repositioning her blood pressure is 140 systolic which is much more appropriate for the patient. Patient is counseled on signs and symptoms requiring return to the emergency room. Patient verbalizes agreement and understand this plan. Patient discharged home in stable and improved condition. ED Disposition - Plan for ED Patient: Disposition: Home or Assisted Living Diagnosis: Headache, Shortness of breath Instructions: ED, Migraine (Classical) Referrals: Casey Lutz, NICHOLE-C [Primary Care Provider] - Additional Instructions: Tylenol as needed for headache. Is importantly follow-up with her primary care provider. Return if you develop fever or further symptoms.
[2018-11-05] MEDS: 0.9% Normal Saline 1,000 ML 1000 ML IV (09:59)
[2018-11-05] MEDS: Ipratropium/Albuterol Sulfate 3 ML AMPUL.NEB INHALATION (10:00)
[2018-11-05] MEDS: Metoclopramide 10 MG/2 ML Vial IV (10:01)
[2018-11-05 10:02] LABS: Mucous, Urine 0 SEEN /hpf (<or=2+); Red Blood Cells-Urine 0 SEEN /hpf (0-5)
[2018-11-05 10:05] LABS: Color, Urine Yellow (Yellow); Glucose, Dipstick Normal (Normal); Ketone-Dipstick 5 mg/dl (Negative); Leukocyte Esterase-Dipstick Negative /ul (Negative); Nitrite-Dipstick Negative (Negative); Occult Blood-Urine Negative /ul (Negative); Protein-Dipstick 15 mg/dl (Negative); Urine Bilirubin Dipstick Negative (Negative); Urine Clarity Sl. Cloudy (Clear); Urine Urobilinogen 1 mg/dl (Normal)
[2018-11-05 10:11] LABS: Bacteria 1+ /hpf (None Seen); Squamous Epithelial Cells - UA 0-5 SEEN /hpf (5-10); White Blood Cells 0-5 SEEN /hpf (0-5)
[2018-11-05] MEDS: DiphenhydrAMINE 50 MG/ML Syringe IV (10:23)
[2018-11-05 10:30] LABS: Absolute Lymphocyte Count 1.95 X10^3/uL (0.83-4.51); Absolute Neutrophil Count 5.3 X10^3/uL (2.0-7.7); Basophil# 0.05 X10^3/uL; Basophil% 0.6 % (0-1); Eosinophil# 0.09 X10^3/uL; Eosinophils% 1.1 % (0-5); Hemoglobin 13.4 g/dL (12.0-15.0); Lymphocyte # 1.95 X10^3/ul (4.0); Lymphocyte % 24.4 % (19-41); Mean Corp Hgb Conc 32.7 g/dL (32-36); Mean Corpuscular Hgb 31.6 pg (27.0-32.0); Mean Corpuscular Volume 96.7 fL (81-99); Mean Platelet Vol. 11.1 fl (6.2-12.0); Monocyte# 0.53 X10^3/uL; Monocyte% 6.6 % (0-10); NRBC Flagged by Analyzer 0 % (0-5); Neutrophil # 5.34 X10^3/uL (2.7-7.7); Neutrophil % 66.8 % (47-70); Platelet Count 269 K/mm3 (150-450); RBC Distribution Width CV 17.5 % (11.6-14.6); Red Blood Count 4.24 M/mm3 (4.2-5.4)
[2018-11-05 10:38] LABS: International Normalized Ratio 1.1
[2018-11-05 10:47] LABS: AST(SGOT) 24 U/L (15-37); Alanine Aminotransfer ALT/SGPT 20 U/L (13-56); Albumin, Serum 4.3 g/dL (3.2-5.0); Alkaline Phosphatase 59 U/L (45-117); Anion Gap 11 (5-15); BUN 12 mg/dL (7-18); BUN/Creat Ratio 7.2 RATIO (10-20); Bilirubin, Direct 0.14 mg/dL (0.00-0.30); Calcium,Total 9.5 mg/dL (8.5-10.1); Chloride 108 mmol/L (98-107); Creatinine, Serum 1.67 mg/dL (0.55-1.02); EST Glomerular Filtration Rate 35 mL/min (>60); Est Glom Filt Rate - Afr Amer 42 mL/min (>60); Estimated Creatinine Clearance 38.57 ml/min; Globulin 3.5 g/dL (2.2-4.2); Glucose 94 mg/dL (74-106); Potassium 3.8 mmol/L (3.5-5.1); Protein, Total 7.8 g/dL (6.4-8.2); Sodium Level 141 mmol/L (136-145)
[2018-11-05 11:05] LABS: Acetaminophen (Tylenol) Level < 2.0 ug/mL (10.0-30.0)
--- NOTE | 2018-11-05 12:26 | NURSING ---
dr aware of bp
[2018-11-05] MEDS: Ketorolac 15 MG/ML Vial IV (13:23)
== END 2018-11-05 14:34 | disposition home or self-care (01) ==
PROVIDERS: Emergency Provider Emergency Medicine; Family Provider Nurse Practitioner Family; PCP Nurse Practitioner Family
DX: G43.909 Migraine, unspecified, not intractable, without status migrainosus (principal); R06.02 Shortness of breath; I10 Essential (primary) hypertension; G47.33 Obstructive sleep apnea (adult) (pediatric); J45.909 Unspecified asthma, uncomplicated; E78.00 Pure hypercholesterolemia, unspecified; Z79.899 Other long term (current) drug therapy
CPT/HCPCS: 36415; 70450; 71046; 80048; 80076; 80329; 81001; 84484; 85025; 85610; 93005; 94640; 96361; 96374; 96375; 99285; J7030; A4216; G0480

== ENCOUNTER → 2018-12-25 09:52 | Outpatient (CLI) | payer MEDICARE, SELFPAY ==
[2018-11-06 14:21] VITALS: BMI 43.4
[2018-12-25 10:48] LABS: Hematocrit 40.4 % (37-47); Hemoglobin 12.9 g/dL (12.0-15.0); Mean Corp Hgb Conc 31.9 g/dL (32-36); Mean Corpuscular Hgb 33.4 pg (27.0-32.0); Mean Corpuscular Volume 104.7 fL (81-99); Mean Platelet Vol. 10.4 fl (6.2-12.0); Platelet Count 265 K/mm3 (150-450); RBC Distribution Width CV 15.4 % (11.6-14.6); RBC Distribution Width SD 59.3 fl (35.1-43.9); Red Blood Count 3.86 M/mm3 (4.2-5.4); White Blood Count 6.9 K/mm3 (4.4-11.0)
[2018-12-25 11:19] LABS: Vitamin B12 346 pg/mL (211-911)
[2018-12-25 11:43] LABS: AST(SGOT) 29 U/L (15-37); Alanine Aminotransfer ALT/SGPT 20 U/L (13-56); Albumin, Serum 4.4 g/dL (3.2-5.0); Alkaline Phosphatase 43 U/L (45-117); Bilirubin, Direct 0.13 mg/dL (0.00-0.30); Cholesterol 229 mg/dL (200); Globulin 3.3 g/dL (2.2-4.2); High Density Lipoprotein 42 mg/dL; Protein, Total 7.7 g/dL (6.4-8.2); Triglycerides 93 mg/dL; Very Low Density Lipoprotein 19 mg/dL (5-40)
[2018-12-25 12:00] LABS: ALB/GLOB Ratio 1.3 RATIO (0.9-2.4); AST(SGOT) 32 U/L (15-37); Alanine Aminotransfer ALT/SGPT 22 U/L (13-56); Albumin, Serum 4.4 g/dL (3.2-5.0); Alkaline Phosphatase 44 U/L (45-117); Anion Gap 8 (5-15); BUN 15 mg/dL (7-18); BUN/Creat Ratio 8.9 RATIO (10-20); Calcium,Total 9.4 mg/dL (8.5-10.1); Chloride 107 mmol/L (98-107); Creatinine, Serum 1.69 mg/dL (0.55-1.02); EST Glomerular Filtration Rate 34 mL/min (>60); Est Glom Filt Rate - Afr Amer 42 mL/min (>60); Globulin 3.3 g/dL (2.2-4.2); Glucose 87 mg/dL (74-106); Iron 91 ug/dL (50-170); Iron Binding Capacity,Total 440 ug/dL (250-450); PERCENT IRON SATURATION 20.7 % (15.0-55.0); Potassium 4.1 mmol/L (3.5-5.1); Protein, Total 7.7 g/dL (6.4-8.2); Sodium Level 140 mmol/L (136-145); T4 Free Direct 0.11 ng/dL (0.76-1.46); Uric Acid 7.4 mg/dL (2.6-6.0)
== END ==
PROVIDERS: Family Provider Nurse Practitioner Family; PCP Nurse Practitioner Family; Referring Provider Internal Medicine Cardiovascular Disease; Visit Provider Internal Medicine Cardiovascular Disease
DX: I10 Essential (primary) hypertension (principal); D50.9 Iron deficiency anemia, unspecified; E53.8 Deficiency of other specified B group vitamins; E78.5 Hyperlipidemia, unspecified; E05.90 Thyrotoxicosis, unspecified without thyrotoxic crisis or storm; M10.9 Gout, unspecified
CPT/HCPCS: 36415; 80053; 80061; 80076; 82607; 82746; 83540; 83550; 84439; 84443; 84550; 85027

== ENCOUNTER → 2019-01-16 16:22 | Outpatient (CLI) | payer MEDICARE, SELFPAY ==
[2018-11-06 14:21] VITALS: BMI 43.4
[2019-01-16 21:23] LABS: ALB/GLOB Ratio 1.3 RATIO (0.9-2.4); AST(SGOT) 49 U/L (15-37); Alanine Aminotransfer ALT/SGPT 32 U/L (13-56); Albumin, Serum 4.6 g/dL (3.2-5.0); Alkaline Phosphatase 51 U/L (45-117); Anion Gap 7 (5-15); BUN 13 mg/dL (7-18); BUN/Creat Ratio 8.2 RATIO (10-20); Calcium,Total 9.7 mg/dL (8.5-10.1); Chloride 111 mmol/L (98-107); Creatinine, Serum 1.59 mg/dL (0.55-1.02); EST Glomerular Filtration Rate 37 mL/min (>60); Est Glom Filt Rate - Afr Amer 45 mL/min (>60); Free T3 < 0.5 pg/mL (2.18-3.98); Globulin 3.5 g/dL (2.2-4.2); Glucose 78 mg/dL (74-106); Potassium 3.6 mmol/L (3.5-5.1); Protein, Total 8.1 g/dL (6.4-8.2); Sodium Level 142 mmol/L (136-145); T4 Free Direct 0.12 ng/dL (0.76-1.46)
[2019-01-18 16:07] LABS: Thyroid Peroxidase AB 142 IU/mL (0-34)
[2019-01-18 17:59] LABS: Thyroglobulin Antibody 88.5 IU/mL (0.0-0.9)
== END ==
PROVIDERS: Family Provider Nurse Practitioner Family; PCP Nurse Practitioner Family; Referring Provider Nurse Practitioner Family; Visit Provider Nurse Practitioner Family
DX: E05.90 Thyrotoxicosis, unspecified without thyrotoxic crisis or storm (principal); N18.9 Chronic kidney disease, unspecified
CPT/HCPCS: 36415; 80053; 84439; 84443; 84481; 86376; 86800

== ENCOUNTER 2019-02-01 02:58 | Emergency (ER) | payer MEDICARE, SELFPAY ==
[2018-11-06 14:21] VITALS: BMI 43.4
[2019-02-01 02:59] VITALS: BP 131/83; PULSE 83; RESP 16; TEMP 36.4; O2SAT 96; BMI 46.5
--- NOTE | 2019-02-01 03:22 | ED.VIS.GEN ---
History of Present Illness Chief Complaint: Lower Extremity Injury Informant: Patient Narrative: Patient states she has right foot ankle and great toe pain. Symptoms have been present for the past 2 nights. She tells me she has a history of gout. She notes redness and swelling and denies any history of trauma to the foot and ankle.. She notes chronic kidney disease. She is not a diabetic. No fevers. Past Medical History - Allergies and Home Meds Allergies/Adverse Reactions: Allergies naproxen [From Naprosyn] Adverse Reaction (Intermediate, Verified 02/01/19 02:59) Nausea aspirin Adverse Reaction (Verified 02/01/19 02:59) Nausea Primary Care Physician: Casey Lutz, MACH[employer] CONTAIN[employer] WASHER-C [Primary Care Provider] - As soon as possible Surgical History: - - , heart catheterization per chart review Smoking Status: Never smoker - Family History Maternal Family History: Family History (Last Reviewed 10/19/18 @ 13:44 by Ena Montiel) Father No problems noted. Mother CAD (coronary artery disease) Myocardial infarction, Onset Age: 55 Hypertension Sister CAD (coronary artery disease) Family History: Reports: Diabetes, Heart Disease, Hypertension Paternal Family History: Family History (Last Reviewed 10/19/18 @ 13:44 by Ena Montiel) Father No problems noted. Mother CAD (coronary artery disease) Myocardial infarction, Onset Age: 55 Hypertension Sister CAD (coronary artery disease) Family History: Reports: Diabetes, Heart Disease, Hypertension Review of Systems General: Denies: Chills, Fever, Sweats Eyes: Denies: Visual changes - bilaterally, Diplopia ENT: Denies: Rhinorrhea, Sore throat Cardiovascular: Denies: Chest pain, Palpitations Respiratory: Denies: Dyspnea, Cough, Dyspnea on exertion Gastrointestinal: Denies: Abdominal pain, Nausea, Vomiting, Diarrhea, Melena, Hematochezia Genitourinary: Denies: Dysuria, Hematuria, Frequency Musculoskeletal: Reports: - - Right foot and ankle pain. Denies: Back pain, Extremity Pain Skin: Denies: Rash, Wounds Neurological: Denies: Headache, Weakness, Numbness Physical Exam Vital Signs/Narrative: Vital Signs Temp Pulse Resp BP Pulse Ox 02/01/19 02:59 97.6 F L 83 16 131/83 H 96 General: Well nourished, Well developed, No Acute Distress Head: Normocephalic, Atraumatic Eyes: Perrl, EOMI ENT: Moist mucous membranes, No rhinorrhea Neck: Supple, Nontender Cardiovascular: Regular rate, Regular rhythm, No murmurs Respiratory: No distress, CTA bilaterally, Chest nontender Abdomen: Soft, Nontender, Nondistended, Normal bowel sounds Back: Nontender, Normal Inspection Extremities: Tenderness - Right foot demonstrates swelling, redness, and increased warmth. There are no breaks in the skin. Skin: Normal color, No rash Neurological: Alert, Oriented x3, Cranial nerves II-XII grossly intact, Normal Strength, Normal Sensation Psychological: Normal affect, Normal Mood Diagnostic/Tx/Re-eval - Medical Decision Making We will treat this as gout. As she has chronic kidney disease stage IV I am not going to administer NSAIDs. I will write for prednisone and crutches and Percocet. She is to follow-up with her doctors. ED Disposition - Plan for ED Patient: Disposition: Home or Assisted Living Diagnosis: Gout attack Instructions: Treating Gout Attacks Prescriptions: Prednisone [Deltasone] 40 mg PO DAILY #10 tab Prescription Printed Hydrocodone Bitart/Apap 5-325 [[place]air 5MG-325MG] 1 tab PO Q6H PRN PRN 3 Days #12 tab PRN Reason: Pain Prescription Printed Referrals: Casey Lutz NP-C [Primary Care Provider] - As soon as possible
[2019-02-01] MEDS: predniSONE 20 MG Tablet 60 MG PO (03:28)
== END 2019-02-01 03:54 | disposition home or self-care (01) ==
PROVIDERS: Emergency Provider Emergency Medicine; Family Provider Nurse Practitioner Family; PCP Nurse Practitioner Family
DX: M10.9 Gout, unspecified (principal); N18.4 Chronic kidney disease, stage 4 (severe); Z79.899 Other long term (current) drug therapy
CPT/HCPCS: 99284

== ENCOUNTER → 2019-07-02 08:43 | Outpatient (CLI) | payer MEDICARE, MEDICAID, SELFPAY ==
[2019-04-23 14:06] VITALS: BMI 46.9
[2019-07-02 09:51] LABS: Hematocrit 43.5 % (37-47); Hemoglobin 13.7 g/dL (12.0-15.0); Mean Corp Hgb Conc 31.5 g/dL (32-36); Mean Corpuscular Hgb 30.7 pg (27.0-32.0); Mean Corpuscular Volume 97.5 fL (81-99); Mean Platelet Vol. 10.8 fl (6.2-12.0); POSITIVE MORPHOLOGY YES; Platelet Count 321 K/mm3 (150-450); RBC Distribution Width CV 22.2 % (11.6-14.6); RBC Distribution Width SD 76.1 fl (35.1-43.9); Red Blood Count 4.46 M/mm3 (4.2-5.4); White Blood Count 9.2 K/mm3 (4.4-11.0)
[2019-07-02 09:53] LABS: Scan Indicated on CBC? Y/N YES- FLAGS NOTED
[2019-07-02 10:19] LABS: Differential Comment SCANNED
[2019-07-02 10:25] LABS: Vitamin B12 464 pg/mL (211-911)
[2019-07-02 11:17] LABS: ALB/GLOB Ratio 1.2 RATIO (0.9-2.4); AST(SGOT) 42 U/L (15-37); Alanine Aminotransfer ALT/SGPT 31 U/L (13-56); Albumin, Serum 4.3 g/dL (3.2-5.0); Alkaline Phosphatase 56 U/L (45-117); Anion Gap 7 (5-15); BUN 10 mg/dL (7-18); BUN/Creat Ratio 5.9 RATIO (10-20); Bilirubin, Direct 0.14 mg/dL (0.00-0.30); Calcium,Total 9.9 mg/dL (8.5-10.1); Chloride 109 mmol/L (98-107); Cholesterol 279 mg/dL (200); Creatinine, Serum 1.69 mg/dL (0.55-1.02); EST Glomerular Filtration Rate 34 mL/min (>60); Est Glom Filt Rate - Afr Amer 41 mL/min (>60); Free T3 < 0.5 pg/mL (2.18-3.98); Globulin 3.6 g/dL (2.2-4.2); Glucose 98 mg/dL (74-106); High Density Lipoprotein 40 mg/dL; Iron 148 ug/dL (50-170); Iron Binding Capacity,Total 432 ug/dL (250-450); Protein, Total 7.9 g/dL (6.4-8.2); Sodium Level 141 mmol/L (136-145); T4 Free Direct 0.19 ng/dL (0.76-1.46); Triglycerides 163 mg/dL; Uric Acid 9.3 mg/dL (2.6-6.0); Very Low Density Lipoprotein 33 mg/dL (5-40)
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
[2019-07-05 07:07] LABS: Thyroid Peroxidase AB 150 IU/mL (0-34); Thyroid Stim Immunoglob <0.10 IU/L (0.00-0.55)
[2019-07-05 15:51] LABS: Renin, Plasma 2.367 ng/mL/hr (0.167-5.380)
== END ==
PROVIDERS: Internal Medicine Cardiovascular Disease; PCP Nurse Practitioner Family; Referring Provider Nurse Practitioner Family; Visit Provider Nurse Practitioner Family
DX: I12.9 Hypertensive chronic kidney disease with stage 1 through stage 4 chronic kidney disease, or unspecified chronic kidney disease (principal); N18.9 Chronic kidney disease, unspecified; E78.5 Hyperlipidemia, unspecified; D50.9 Iron deficiency anemia, unspecified; E53.8 Deficiency of other specified B group vitamins; M10.9 Gout, unspecified; E05.90 Thyrotoxicosis, unspecified without thyrotoxic crisis or storm; M47.816 Spondylosis without myelopathy or radiculopathy, lumbar region; M54.6 Pain in thoracic spine
CPT/HCPCS: 36415; 72070; 72100; 80053; 80061; 82248; 82607; 83540; 83550; 84244; 84439; 84443; 84445; 84481; 84550; 85027; 86376; 86800

== ENCOUNTER → 2019-07-03 13:31 | Outpatient (CLI) | payer MEDICARE, MEDICAID, SELFPAY ==
[2019-04-23 14:06] VITALS: BMI 46.9
== END ==
PROVIDERS: PCP Nurse Practitioner Family; Referring Provider Nurse Practitioner Family; Visit Provider Nurse Practitioner Family
DX: J45.909 Unspecified asthma, uncomplicated (principal)
CPT/HCPCS: 94060; 94726; 94729

== ENCOUNTER → 2019-08-09 10:04 | Outpatient (CLI) | payer MEDICARE, MEDICAID, SELFPAY ==
[2019-04-23 14:06] VITALS: BMI 46.9
--- NOTE | 2019-08-09 10:22 | RAD_ITS ---
STUDY: X-RAY CHEST REASON FOR EXAM: Female, 49 years old. INCREASED SHORTNESS OF BREATH, ? COVID TECHNIQUE: PA and lateral views of the chest. COMPARISON: November 05, 2018 FINDINGS: Mild interstitial edema and thickening is present in bilateral lower lobes. No visualized focal consolidation. There is no demonstrated pleural abnormality. Normal size heart. Stable visualized mediastinal and osseous structures. RAD/Chest PA and Lateral IMPRESSION: Mild interstitial edema and thickening is present in bilateral lower lobes. No visualized focal consolidation. Electronically Signed: Oren Kam MD at 17:16 EDT , Service support ,
[2019-08-09 11:02] LABS: AST(SGOT) 30 U/L (15-37); Alanine Aminotransfer ALT/SGPT 42 U/L (13-56); Albumin, Serum 4.5 g/dL (3.2-5.0); Alkaline Phosphatase 64 U/L (45-117); Anion Gap 7 (5-15); BUN 26 mg/dL (7-18); BUN/Creat Ratio 15.8 RATIO (10-20); Bilirubin, Direct 0.23 mg/dL (0.00-0.30); Calcium,Total 9.3 mg/dL (8.5-10.1); Chloride 107 mmol/L (98-107); Cholesterol 133 mg/dL (200); Creatinine, Serum 1.65 mg/dL (0.55-1.02); EST Glomerular Filtration Rate 35 mL/min (>60); Est Glom Filt Rate - Afr Amer 43 mL/min (>60); Glucose 124 mg/dL (74-106); High Density Lipoprotein 42 mg/dL; Potassium 3.9 mmol/L (3.5-5.1); Protein, Total 8.5 g/dL (6.4-8.2); Sodium Level 139 mmol/L (136-145); Triglycerides 67 mg/dL; Very Low Density Lipoprotein 13 mg/dL (5-40)
[2019-08-10 07:13] LABS: SARS-COV-2 TOTAL ABS Nonreactive (Nonreactive)
== END ==
PROVIDERS: Internal Medicine Cardiovascular Disease; PCP Nurse Practitioner Family; Referring Provider Internal Medicine Pulmonary Disease; Visit Provider Internal Medicine Pulmonary Disease
DX: R06.00 Dyspnea, unspecified (principal); J45.909 Unspecified asthma, uncomplicated; I10 Essential (primary) hypertension; N28.9 Disorder of kidney and ureter, unspecified; E78.00 Pure hypercholesterolemia, unspecified; E78.5 Hyperlipidemia, unspecified
CPT/HCPCS: 36415; 71046; 80048; 80061; 80076; 86769; G2023

== ENCOUNTER → 2019-09-14 10:19 | Outpatient (CLI) | payer MEDICARE, MEDICAID, SELFPAY ==
[2019-04-23 14:06] VITALS: BMI 46.9
--- NOTE | 2019-09-14 10:27 | RAD_ITS ---
STUDY: X-RAY CHEST REASON FOR EXAM: Female, 49 years old. DYSPNEA TECHNIQUE: PA and lateral views of the chest. COMPARISON: 08/09/2019 FINDINGS: The lungs are clear and expanded. There is no demonstrated pleural abnormality. Normal size heart. Normal mediastinum and kumar. Normal visualized pulmonary arteries. Normal visualized aortic arch and descending thoracic aorta. Normal visualized thoracic spine. Normal visualized ribs, clavicles, and shoulders. There is no demonstrated abnormality of the visualized soft tissue structures of the upper abdomen. RAD/Chest PA and Lateral IMPRESSION: No acute pulmonary process Electronically Signed: Rafa Rogers MD at 16:49 EDT , Service support ,
== END ==
PROVIDERS: PCP Nurse Practitioner Family; Referring Provider Internal Medicine Pulmonary Disease; Visit Provider Internal Medicine Pulmonary Disease
DX: R06.00 Dyspnea, unspecified (principal)
CPT/HCPCS: 71046

== ENCOUNTER → 2019-10-05 12:27 | Outpatient (CLI) | payer MEDICARE, MEDICAID, SELFPAY ==
[2019-04-23 14:06] VITALS: BMI 46.9
[2019-09-28 09:35] VITALS: BMI 50.1
--- NOTE | 2019-10-05 12:28 | STEWCON_ITS ---
Reason For Study: Dyspnea Stress Results Protocol: Modified Massimo Protocol With Definity Maximum Predicted HR: 171 bpm Target HR: 145 bpm % Maximum Predicted HR: 81 % Heart Stage Duration Rate BP Comment (mm:ss) (bpm) No Chest Pain; Mild Dyspnea; 2.5 ML Diluted Baseline 108 112/70Definity Modified Massimo Protocol Stage 0 2:42 139 164/70Mild Chest Pressure; Severe Dyspnea Recovery 101 116/74No Chest Pain; Mild Dyspnea Stress Duration: 2:42 mm:ss Maximum Stress HR: 139 bpm METS: 2 Baseline Echocardiogram Findings The estimated ejection fraction is 65 %. Stress Echo Wall motion Data Resting WM Intermediate WM Stress WM Resting Wall Motion Wall Motion Stress No regional wall motion No regional wall motion abnormalities noted. abnormalities noted. EKG Data The baseline ECG displays normal sinus rhythm. The maximum heart rate attained was 139 beats per minute. This was 81% of maximum predicted heart rate. Interpretation Summary The estimated ejection fraction is 65 %. Normal, submaximal, modified Massimo treadmill echocardiogram. Negative for ischemia by EKG and echocardiographic criteria. No anginal symptoms noted. Rare PVC noted. Below average exercise capacity for age. Appropriate blood pressure response to exercise. Test terminated due to dyspnea. Decrease sensitivity due to poor echo windows requiring Definity agent. Final LVEF is 75%. No complications. Ordering Physician: Nicolás Molina Referring Physician: Casey Yeung Performed By: Berna Sims RDCS
== END ==
PROVIDERS: PCP Nurse Practitioner Family; Referring Provider Internal Medicine Cardiovascular Disease; Visit Provider Internal Medicine Cardiovascular Disease
DX: R06.02 Shortness of breath (principal); R06.09 Other forms of dyspnea; I25.10 Atherosclerotic heart disease of native coronary artery without angina pectoris; I10 Essential (primary) hypertension; Z98.890 Other specified postprocedural states
CPT/HCPCS: 93017; 93350; Q9957; A4216; C8928

== ENCOUNTER → 2019-10-08 13:40 | Outpatient (CLI) | payer MEDICARE, MEDICAID, SELFPAY ==
[2019-09-28 09:35] VITALS: BMI 50.1
--- NOTE | 2019-10-08 13:41 | ECHOD_ITS ---
Reason For Study: SOB Procedure This was a 2D Doppler, Color Flow transthoracic echocardiogram. The study was technically difficult. Exam performed in department. Left Ventricle Normal size and thickness. The estimated ejection fraction is 65 %. Stage 1 diastolic dysfunction. No regional wall motion abnormalities noted. Right Ventricle Normal size and thickness. Normal systolic function. Atria Normal left atrium. Normal right atrium. Normal atrial septum. Mitral Valve The mitral valve is structurally normal. No prolapse or stenosis seen. Tricuspid Valve Normal tricuspid valve. Unable to estimate RV systolic pressure due to insufficient tricuspid regurgitant envelope. Aortic Valve Trisinus/trileaflet aortic valve. Mild focal aortic valve thickening. There is no aortic stenosis. Pulmonic Valve Normal pulmonic valve. Great Vessels Normal aortic root. Normal arch. Normal inferior vena cava. Inferior vena cava collapse with sniff. Pericardium/Pleural No pericardial effusion. Medication 22 gauge I.V. with prn adaptor inserted into left arm. Diluted definity 1.5ml given slow IV push to enhance endocardial definition. MMode/2D Measurements & Calculations LVIDd: 4.0 cm IVSd: 1.2 cm Ao root diam: 3.4 cm LVIDs: 2.5 cm LVPWd: 0.97 cm FS: 37.1 % LA dimension(2D): 3.3 cm Doppler Measurements & Calculations MV E max abdoul: 63.9 cm/sec Lat Peak E' Abdoul: 6.4 cm/sec Med Peak E' Abdoul: 7.4 cm/sec MV A max abdoul: 93.1 cm/sec E/E' lat: 10.0 E/E' med: 8.6 MV E/A: 0.69 Ao V2 max: 167.5 cm/sec LV V1 max: 111.4 cm/sec PA V2 max: 107.7 cm/sec Ao max P.2 mmHg LV V1 max P.0 mmHg Interpretation Summary The estimated ejection fraction is 65 %. Stage 1 diastolic dysfunction. Unable to estimate RV systolic pressure due to insufficient tricuspid regurgitant envelope. Compared to echo report dated 08/29/2017, no appreciable changes noted. The study was technically difficult. Contrast injection was performed. Ordering Physician: Nicolás Molina Referring Physician: Casey Lutz Performed By: Berna Sims RDCS
== END ==
PROVIDERS: PCP Nurse Practitioner Family; Referring Provider Internal Medicine Cardiovascular Disease; Visit Provider Internal Medicine Cardiovascular Disease
DX: R06.02 Shortness of breath (principal); I25.10 Atherosclerotic heart disease of native coronary artery without angina pectoris
CPT/HCPCS: 93306; Q9957; A4216; C8929

== ENCOUNTER → 2019-10-10 08:48 | Outpatient (CLI) | payer MEDICARE, MEDICAID, SELFPAY ==
[2019-09-28 09:35] VITALS: BMI 50.1
[2019-10-10 09:53] LABS: D-Dimer Quantitative (DVT/PE) 0.89 FEU/ug/m (0.27-0.49)
[2019-10-10 10:12] LABS: Anion Gap 6 (5-15); BUN 11 mg/dL (7-18); BUN/Creat Ratio 8.5 RATIO (10-20); Calcium,Total 9.2 mg/dL (8.5-10.1); Chloride 108 mmol/L (98-107); Creatinine, Serum 1.29 mg/dL (0.55-1.02); EST Glomerular Filtration Rate 47 mL/min (>60); Est Glom Filt Rate - Afr Amer 56 mL/min (>60); Glucose 188 mg/dL (74-106); Potassium 3.3 mmol/L (3.5-5.1); Sodium Level 141 mmol/L (136-145)
[2019-10-10 10:15] LABS: BNP,B-Type NATRIURETIC PEPTIDE 10.1 pg/mL (0-100)
== END ==
PROVIDERS: PCP Nurse Practitioner Family; Referring Provider Physician Assistant Medical; Visit Provider Physician Assistant Medical
DX: R06.09 Other forms of dyspnea (principal); R06.02 Shortness of breath; R07.9 Chest pain, unspecified
CPT/HCPCS: 36415; 80048; 83880; 85379

== ENCOUNTER 2019-10-10 10:39 | Emergency (ER) | payer MEDICARE, MEDICAID, SELFPAY ==
[2019-09-28 09:35] VITALS: BMI 50.1
[2019-10-10 10:40] VITALS: BP 151/86; PULSE 113; RESP 18; TEMP 36.3; O2SAT 99; BMI 49.9
--- NOTE | 2019-10-10 11:03 | EKG12_ITS ---
Test Reason : SOB Blood Pressure : / mmHG Vent. Rate : 107 BPM Atrial Rate : 107 BPM P-R Int : 144 ms QRS Dur : 086 ms QT Int : 362 ms P-R-T Axes : 055 011 028 degrees QTc Int : 483 ms Sinus tachycardia Otherwise normal ECG Confirmed by JENNIFER SHERMAN ([id number]), graphics editor ROMEL AMARO ([id number]) on 10/15/2019 2:19:47 PM Referred By: REINA Confirmed By:JENNIFER SHERMAN
--- NOTE | 2019-10-10 11:06 | ED.DCSUM_ITS ---
History of Present Illness Chief Complaint: Shortness of Breath Informant: Patient Narrative: 49-year-old female presenting for evaluation of intermittent chest pain and dyspnea on exertion. She states that she commonly has breathing issues due to her asthma however she currently has the ambulating even short distances which is atypical for her. She states she is also had some intermittent chest pains which feel heavy. She points to her sternum. She states that she followed up with Dr. Molina who did a stress echocardiogram on 10/18/2019 and then a follow- up echocardiogram on 10/08/2019. She states that she believes these were okay. She was able to finish. She states that she had labs drawn this morning which were concerning for a blood clot. Patient does note that she has had left unilateral leg swelling which is also been going on for a few weeks. She states this might even be a month. She denies history of DVT/PE. She has not had an ultrasound of her left lower extremity. She does not complain of pain in the left leg. Prior similar symptoms: Yes Past Medical History - Allergies and Home Meds Allergies/Adverse Reactions: Allergies hydrochlorothiazide Adverse Reaction (Intermediate, Verified 10/10/19 10:39) Contributes to gout naproxen [From Naprosyn] Adverse Reaction (Intermediate, Verified 10/10/19 10:39) Nausea aspirin Adverse Reaction (Verified 10/10/19 10:39) Nausea Primary Care Physician: Nicolás Molina MD [STAFF PHYSICIAN] - Casey Lutz NP-C [Primary Care Provider] - Prior records reviewed: Yes Past Medical History: - - Asthma, hypertension, hyperlipidemia, CAD, hypothyroidism, celiac's disease, gout brain Surgical History: - - , heart catheterization per chart review Lives: With Family Smoking Status: Never smoker Alcohol: None Drugs: None - Family History Maternal Family History: Family History (Last Reviewed 09/28/19 @ 09:35 by Ena Montiel) Father No problems noted. Mother CAD (coronary artery disease) Myocardial infarction, Onset Age: 55 Hypertension Sister CAD (coronary artery disease) Family History: Reports: Diabetes, Heart Disease, Hypertension Paternal Family History: Family History (Last Reviewed 09/28/19 @ 09:35 by Ena Montiel) Father No problems noted. Mother CAD (coronary artery disease) Myocardial infarction, Onset Age: 55 Hypertension Sister CAD (coronary artery disease) Family History: Reports: Diabetes, Heart Disease, Hypertension Review of Systems General: Denies: Chills, Fever, Sweats Eyes: Denies: Visual changes - bilaterally, Diplopia ENT: Denies: Rhinorrhea, Sore throat Cardiovascular: Reports: Chest pain Respiratory: Reports: Dyspnea, Dyspnea on exertion Gastrointestinal: Denies: Abdominal pain, Nausea Genitourinary: Denies: Dysuria, Hematuria, Frequency Musculoskeletal: Reports: Swelling - Left lower extremity swelling. Denies: Back pain, Extremity Pain Skin: Denies: Rash Neurological: Denies: Headache Physical Exam Vital Signs/Narrative: Vital Signs Temp Pulse Resp BP Pulse Ox 10/10/19 10:40 97.3 F L 113 H 18 151/86 H 99 Inital Vital Signs reviewed: Yes General: No Acute Distress Head: Normocephalic, Atraumatic Eyes: Perrl, EOMI Cardiovascular: Regular rate, Regular rhythm Respiratory: No distress, CTA bilaterally Back: Nontender Extremities: Edema - Lower extremity edema 2+ pedal pulses. Negative for: Calf Tenderness Skin: Normal color, No rash Neurological: Alert, Oriented x3 Psychological: Normal affect Diagnostic/Tx/Re-eval Venous Doppler of left lower extremity negative for DVT. Laboratory Data 10/10/19 10/10/19 11:20 11:20 WBC 12.9 H RBC 4.09 L Hgb 12.8 Hct 40.8 MCV 99.8 H MCH 31.3 MCHC 31.4 L RDW Std Deviation 47.0 H RDW Coeff of Alfredo 12.7 Plt Count 440 MPV 9.3 Immature Gran % (Auto) 1.700 H Neut % (Auto) 72.5 H Lymph % (Auto) 16.4 L [place] % (Auto) 6.7 Eos % (Auto) 2.2 Baso % (Auto) 0.5 Absolute Neuts (auto) 9.4 H Absolute Lymphs (auto) 2.11 Nucleated RBC % 0 Troponin I < 0.015 Clinical Impression(s) from Imaging Studies Chest CTA 10/10/19 12:04 IMPRESSION: Normal CTA chest examination, without a demonstrated pulmonary embolism or arterial dissection. Electronically Signed: Seun Vieira, at 12:52 EDT , Service support , Laboratory Data 10/10/19 10/10/19 11:20 11:20 WBC 12.9 H RBC 4.09 L Hgb 12.8 Hct 40.8 MCV 99.8 H MCH 31.3 MCHC 31.4 L RDW Std Deviation 47.0 H RDW Coeff of Alfredo 12.7 Plt Count 440 MPV 9.3 Immature Gran % (Auto) 1.700 H Neut % (Auto) 72.5 H Lymph % (Auto) 16.4 L [place] % (Auto) 6.7 Eos % (Auto) 2.2 Baso % (Auto) 0.5 Absolute Neuts (auto) 9.4 H Absolute Lymphs (auto) 2.11 Nucleated RBC % 0 Troponin I < 0.015 - Rhythm Strip Rhythm Strip: Sinus Rhythm Rate: 107 - EKG Initial EKG Interpretation: No Acute Injury Pattern, Sinus Tachycardia Follow-up EKG Interpretation: No Acute Injury Pattern, Sinus Tachycardia - Medical Decision Making Patient presents for evaluation of chest pain out of concern for PE as she had an outpatient d-dimer which was positive. She just recently had stress testing done which was normal. Her stress echo was normal. Troponin is negative. She had other lab work drawn outpatient this morning which did show that her renal function is slightly impaired. For this reason she was given IV fluids before the CTA was performed. This was negative. Left lower extremity Doppler was also negative. I time as patient is stable to be discharged home given a recent negative stress and negative imaging. Impression: 1. Chest pain 2. Shortness breath ED Disposition - Plan for ED Patient: Disposition: Home or Assisted Living Diagnosis: Chest pain Instructions: ED Chest Pain Atypical Unkn Cause Referrals: Casey Lutz, NICHOLE-C [Primary Care Provider] - Nicolás Molina MD [STAFF PHYSICIAN] -
--- NOTE | 2019-10-10 11:07 | VDLE_ITS ---
Reason For Study: Leg swelling Procedure LEFT Exam performed in department. GSV is normal. A preliminary report was called and/or faxed CFV is compressible, spontaneous, phasic, to Doc. competent, and demonstrates normal augmentation. FV is compressible, spontaneous, phasic, competent and demonstrates normal augmentation. POP V is compressible, spontaneous, phasic, competent and demonstrates normal augmentation. T/P Trunk is compressible. PTV is compressible. LT PerV is compressible. Interpretation Summary There is no evidence of left lower extremity deep vein thrombosis. Left great saphenous vein appears patent and compressible segmentally. Ordering Physician: Claudio Roach Referring Physician: Casey Lutz Performed By: Franci Gurrola RVT
[2019-10-10 11:26] LABS: Absolute Lymphocyte Count 2.11 X10^3/uL (0.83-4.51); Absolute Neutrophil Count 9.4 X10^3/uL (2.0-7.7); Basophil# 0.07 X10^3/uL; Basophil% 0.5 % (0-1); Eosinophil# 0.28 X10^3/uL; Eosinophils% 2.2 % (0-5); Hematocrit 40.8 % (37-47); Hemoglobin 12.8 g/dL (12.0-15.0); Lymphocyte # 2.11 X10^3/ul (4.0); Lymphocyte % 16.4 % (19-41); Mean Corp Hgb Conc 31.4 g/dL (32-36); Mean Corpuscular Hgb 31.3 pg (27.0-32.0); Mean Corpuscular Volume 99.8 fL (81-99); Mean Platelet Vol. 9.3 fl (6.2-12.0); Monocyte# 0.86 X10^3/uL; Monocyte% 6.7 % (0-10); NRBC Flagged by Analyzer 0 % (0-5); Neutrophil # 9.35 X10^3/uL (2.7-7.7); Neutrophil % 72.5 % (47-70); Platelet Count 440 K/mm3 (150-450); RBC Distribution Width CV 12.7 % (11.6-14.6); Red Blood Count 4.09 M/mm3 (4.2-5.4); White Blood Count 12.9 K/mm3 (4.4-11.0)
[2019-10-10 11:35] VITALS: PULSE 108; RESP 19; O2SAT 99
[2019-10-10] MEDS: 0.9% Normal Saline 1,000 ML 1000 ML IV (11:41)
[2019-10-10 11:48] VITALS: BP 135/89; PULSE 103; RESP 22; TEMP 36.3; O2SAT 99
[2019-10-10 11:49] VITALS: O2SAT 100
--- NOTE | 2019-10-10 12:04 | CT_ITS ---
STUDY: CTA CHEST REASON FOR EXAM: Female, 49 years old. CP/SOB, H/O ASTHMA, COPD. RADIATION DOSAGE (If Supplied By Facility): CTDIvol = ( 21.43 ) mGy, DLP = ( 733.95 ) mGycm TECHNIQUE: The examination was performed with the intravenous administration of IV 100mL Isovue-370. Post-processing of the angiographic images was performed, with multiplanar reformation and 3D reconstruction. Individualized dose optimization techniques were used for this CT. COMPARISON: Comparison is made with prior study dated 04/21/2018. FINDINGS: Normal enhancement of the main pulmonary artery and right and left pulmonary arteries. Normal enhancement of the bilateral peripheral pulmonary arteries. There is no demonstrated pulmonary embolism. Normal thoracic aorta and visualized great vessels. There is no demonstrated aortic dissection. Normal heart and pericardium. Normal mediastinum. Normal hilar regions. Normal visualized trachea and bronchi. The lungs are well expanded. Normal pulmonary parenchyma. Normal pleura. Normal chest wall structures. Normal osseous structures. Normal visualized upper abdomen. CT/CTA Chest W/WO Contrast IMPRESSION: Normal CTA chest examination, without a demonstrated pulmonary embolism or arterial dissection. Electronically Signed: Seun Vieira, at 12:52 EDT , Service support ,
--- NOTE | 2019-10-10 12:18 | EKG12_ITS ---
Test Reason : REPEAT Blood Pressure : / mmHG Vent. Rate : 103 BPM Atrial Rate : 103 BPM P-R Int : 156 ms QRS Dur : 084 ms QT Int : 346 ms P-R-T Axes : 058 030 039 degrees QTc Int : 453 ms Sinus tachycardia Otherwise normal ECG Confirmed by JENNIFER SHERMAN ([id number]), commissioning editor BRIANNA BRAVO ([id number] on 10/15/2019 4:07:28 PM Referred By: REINA Confirmed By:JENNIFER SHERMAN
[2019-10-10 13:57] VITALS: BP 118/105; BP 118/89; PULSE 105; RESP 17; RESP 20; TEMP 36.3; O2SAT 98
== END 2019-10-10 13:59 | disposition home or self-care (01) ==
PROVIDERS: Emergency Provider Student in an Organized Health Care Education/Training Program; PCP Nurse Practitioner Family
DX: R07.9 Chest pain, unspecified (principal); R06.02 Shortness of breath; I25.10 Atherosclerotic heart disease of native coronary artery without angina pectoris; I10 Essential (primary) hypertension; E03.9 Hypothyroidism, unspecified; J45.909 Unspecified asthma, uncomplicated
CPT/HCPCS: 36415; 71275; 80048; 83880; 84484; 85025; 85379; 93005; 93971; 96360; 96361; 99284; J7030; Q9967; A4216

== ENCOUNTER → 2019-10-15 | Outpatient (CLI) | payer MEDICARE, MEDICAID, SELFPAY ==
[2019-10-10 10:40] VITALS: BMI 49.9
[2019-10-15 10:30] LABS: Hematocrit 36.5 % (37-47); Hemoglobin 11.5 g/dL (12.0-15.0); Mean Corp Hgb Conc 31.5 g/dL (32-36); Mean Corpuscular Hgb 30.8 pg (27.0-32.0); Mean Corpuscular Volume 97.9 fL (81-99); Mean Platelet Vol. 9.6 fl (6.2-12.0); Platelet Count 409 K/mm3 (150-450); RBC Distribution Width CV 12.9 % (11.6-14.6); RBC Distribution Width SD 46.3 fl (35.1-43.9); Red Blood Count 3.73 M/mm3 (4.2-5.4); White Blood Count 11.1 K/mm3 (4.4-11.0)
[2019-10-15 10:42] LABS: Vitamin B12 305 pg/mL (211-911)
[2019-10-15 10:47] LABS: ALB/GLOB Ratio 0.7 RATIO (0.9-2.4); AST(SGOT) 28 U/L (15-37); Alanine Aminotransfer ALT/SGPT 33 U/L (13-56); Albumin, Serum 2.8 g/dL (3.2-5.0); Alkaline Phosphatase 77 U/L (45-117); Anion Gap 9 (5-15); BUN 9 mg/dL (7-18); Calcium,Total 9.1 mg/dL (8.5-10.1); Chloride 104 mmol/L (98-107); Cholesterol 82 mg/dL (200); Creatinine, Serum 1.13 mg/dL (0.55-1.02); EST Glomerular Filtration Rate 54 mL/min (>60); Est Glom Filt Rate - Afr Amer 66 mL/min (>60); Globulin 4.1 g/dL (2.2-4.2); Glucose 134 mg/dL (74-106); High Density Lipoprotein 21 mg/dL; Iron 64 ug/dL (50-170); Iron Binding Capacity,Total 356 ug/dL (250-450); Potassium 3.3 mmol/L (3.5-5.1); Protein, Total 6.9 g/dL (6.4-8.2); Sodium Level 140 mmol/L (136-145); Thyroid Stim Hormone (TSH) 0.04 uIU/mL (0.358-3.74); Triglycerides 145 mg/dL; Uric Acid 5.6 mg/dL (2.6-6.0); Very Low Density Lipoprotein 29 mg/dL (5-40)
[2019-10-18 14:08] LABS: Thyroid Stim Immunoglob <0.10 IU/L (0.00-0.55)
[2020-05-15 12:32] LABS: Renin, Plasma 2.581 ng/mL/hr (0.167-5.380)
== END | disposition home or self-care (01) ==
PROVIDERS: PCP Nurse Practitioner Family; Referring Provider Nurse Practitioner Family; Visit Provider Nurse Practitioner Family
DX: E78.5 Hyperlipidemia, unspecified (principal); E05.90 Thyrotoxicosis, unspecified without thyrotoxic crisis or storm; E53.8 Deficiency of other specified B group vitamins; M10.9 Gout, unspecified; I12.9 Hypertensive chronic kidney disease with stage 1 through stage 4 chronic kidney disease, or unspecified chronic kidney disease; N18.9 Chronic kidney disease, unspecified; D50.9 Iron deficiency anemia, unspecified
CPT/HCPCS: 36415; 80053; 80061; 82607; 83540; 83550; 84244; 84439; 84443; 84445; 84550; 85027

== ENCOUNTER → 2019-11-29 08:22 | Outpatient (CLI) | payer MEDICARE, MEDICAID, SELFPAY ==
--- NOTE | 2019-11-29 08:40 | RAD_ITS ---
STUDY: X-RAY CHEST REASON FOR EXAM: Female, 49 years old. DYSPNEA xFEW MONTHS TECHNIQUE: PA and lateral views of the chest. COMPARISON: Comparison is made with prior study dated 09/14/2019. FINDINGS: There is mild elevation of the right hemidiaphragm. The lungs are clear. There is no demonstrated pleural abnormality. Borderline cardiomegaly. Normal mediastinum and kumar. Normal visualized pulmonary arteries. Normal visualized aortic arch and descending thoracic aorta. Normal visualized thoracic spine. Normal visualized ribs, clavicles, and shoulders. There is no demonstrated abnormality of the visualized soft tissue structures of the upper abdomen. RAD/Chest PA and Lateral IMPRESSION: Borderline cardiomegaly. Electronically Signed: Seun Vieira, at 9:00 EDT , Service support ,
--- NOTE | 2019-11-29 08:40 | RAD_ITS ---
STUDY: X-RAY - SACRUM/COCCYX REASON FOR EXAM: Female, 49 years old. BILATERAL HIP PAIN xMONTHS, NKI TECHNIQUE: 3 view(s) of the sacrum and coccyx were obtained. COMPARISON: None. FINDINGS: Normal bilateral sacroiliac joints. Normal visualized sacral ala and fused sacral bodies. Normal sacrococcygeal junction with a normal angulation. Normal coccygeal segments. The presacral soft tissue structures are unremarkable. RAD/Sacrum-Coccyx min 2 Views IMPRESSION: Normal x-rays of the sacrum and coccyx. Electronically Signed: Seun Vieira, at 8:59 EDT , Service support ,
== END ==
PROVIDERS: PCP Nurse Practitioner Family; Referring Provider Anesthesiology Pain Medicine; Visit Provider Anesthesiology Pain Medicine
DX: R06.00 Dyspnea, unspecified (principal); M54.9 Dorsalgia, unspecified
CPT/HCPCS: 71046; 72220

== ENCOUNTER 2020-01-22 09:55 | Emergency (ER) | payer MEDICARE, MEDICAID, SELFPAY ==
[2020-01-22 09:57] VITALS: BP 138/86; PULSE 94; RESP 17; TEMP 36.3; O2SAT 100; BMI 51.5
--- NOTE | 2020-01-22 10:14 | EKG12_ITS ---
Test Reason : NAUSEA/VOMITING Blood Pressure : / mmHG Vent. Rate : 090 BPM Atrial Rate : 090 BPM P-R Int : 140 ms QRS Dur : 088 ms QT Int : 388 ms P-R-T Axes : 053 014 033 degrees QTc Int : 474 ms Sinus rhythm with frequent Premature ventricular complexes Otherwise normal ECG Confirmed by MIGUEL GONZALEZ, MAGALI ([id number]), clinical editor ZANDER MAYER ([id number]) on 01/25/2020 11:23:47 AM Referred By: ESTEPHANIE Confirmed By:MAGALI RIVERA MD
--- NOTE | 2020-01-22 10:20 | ED.DCSUM_ITS ---
History of Present Illness Chief Complaint: Nausea/Vomiting Informant: Patient Onset: Month(s) Maximum Severity: Mild Narrative: The patient presents with a chief complaint of intermittent episodes of nausea that have been going on for months to years she has been evaluated for this condition in the past and told that sometimes her gallbladder malfunctions she has been told however she does not require that her gallbladder be removed. She also has a history of chronic migraine headaches she sees an infusion specialist in [place] where she receives infusions monthly for the migraine headaches the infusions are not intermittently effective, she is not here for the headaches which are chronic and not related to her nausea syndrome Still believes at one point point time she was told she has celiac disease she does not remember seeing a surgeon or specialist for these conditions Spoke with her outpatient providers today and apparently asked her to come to the emergency department and since she was coming to have a chest x-ray done b ecause for some reason she was due to have a chest x-ray Had no fever no cough no runny nose no coronavirus and symptoms, she is able to take light watery foods her bowel and bladder habits are unremarkable no Covid exposures Past Medical History - Allergies and Home Meds Allergies/Adverse Reactions: Allergies hydrochlorothiazide Adverse Reaction (Intermediate, Verified 01/22/20 09:56) Contributes to gout naproxen [From Naprosyn] Adverse Reaction (Intermediate, Verified 01/22/20 09:56) Nausea aspirin Adverse Reaction (Verified 01/22/20 09:56) Nausea Primary Care Physician: Jamaal Burgos MD [STAFF PHYSICIAN] - Casey uLtz EMPLOYEE REPRESENTATIVE, EMPLOYEE REPRESENTATIVE-C [Primary Care Provider] - Past Medical History: - - Headache syndrome nausea syndrome history of what sounds like biliary colic celiac disease Surgical History: - - , heart catheterization per chart review Smoking Status: Never smoker - Family History Maternal Family History: Family History (Last Reviewed 09/28/19 @ 09:35 by Ena Montiel) Father No problems noted. Mother CAD (coronary artery disease) Myocardial infarction, Onset Age: 55 Hypertension Sister CAD (coronary artery disease) Family History: Reports: Diabetes, Heart Disease, Hypertension Paternal Family History: Family History (Last Reviewed 09/28/19 @ 09:35 by Ena Montiel) Father No problems noted. Mother CAD (coronary artery disease) Myocardial infarction, Onset Age: 55 Hypertension Sister CAD (coronary artery disease) Family History: Reports: Diabetes, Heart Disease, Hypertension Review of Systems General: Denies: Chills, Fever, Sweats Eyes: Denies: Visual changes - bilaterally, Diplopia ENT: Denies: Rhinorrhea, Sore throat Cardiovascular: Denies: Chest pain, Palpitations Respiratory: Denies: Dyspnea, Cough, Dyspnea on exertion Gastrointestinal: Reports: Nausea. Denies: Abdominal pain, Vomiting, Diarrhea, Melena, Hematochezia Genitourinary: Denies: Dysuria, Hematuria, Frequency Musculoskeletal: Denies: Back pain, Extremity Pain Skin: Denies: Rash, Wounds Neurological: Denies: Headache, Weakness, Numbness Physical Exam Vital Signs/Narrative: Vital Signs Temp Pulse Resp BP Pulse Ox 01/22/20 09:57 97.4 F L 94 17 138/86 H 100 General: Well nourished, Well developed, No Acute Distress Head: Normocephalic, Atraumatic Eyes: Perrl, EOMI ENT: Moist mucous membranes, No rhinorrhea Neck: Supple, Nontender Cardiovascular: Regular rate, Regular rhythm, No murmurs Respiratory: No distress, CTA bilaterally, Chest nontender Abdomen: Soft, Nontender, Nondistended, Normal bowel sounds Back: Nontender, Normal Inspection Extremities: Nontender, No edema Skin: Normal color, No rash Neurological: Alert, Oriented x3, Cranial nerves II-XII grossly intact, Normal Strength, Normal Sensation Psychological: Normal affect, Normal Mood Diagnostic/Tx/Re-eval - Medical Decision Making Patient's vital signs are unremarkable she is resting company in the bed she is a very large woman her BMI is 52 her abdomen is soft and nontender she complains of just a general sense of nausea given all the above ED screening evaluation The patient's white count is 18 the rest of her labs are unremarkable, as is her urine, her CT abdomen pelvis shows really nothing acute see that report from radiology Evaluation her status has been unchanged she has been treated with morphine and Zofran feels slightly better, we discussed a white count of 18 the fact this is nonspecific we discussed inpatient versus outpatient management, she has had this intermittent nausea for weeks to months she is comfortable discharged home with standard bland diet she will be given a referral to follow-up with her outpatient providers for further management of all the above she is also given referral to follow-up with surgery as she has been told in the past that this could be related to poorly functioning gallbladder in addition she apparently has a history of celiac disease but as she can recall she is never been referred to a gastroenterology service and I have asked her to discuss that with her outpatient providers Home stable Impression final paroxysmal intermittent nausea for weeks to months etiology unclear, leukocytosis, ED Disposition - Plan for ED Patient: Diagnosis: Nausea leukocytosis Instructions: ED Nausea Vomiting Adult Prescriptions: Ondansetron [Zofran Odt] 8 mg PO Q8H PRN PRN #20 tab PRN Reason: Nausea Prescription Printed Referrals: Casey Lutz EMPLOYEE REPRESENTATIVE, EMPLOYEE REPRESENTATIVE-C [Primary Care Provider] - Jamaal Burgos MD [STAFF PHYSICIAN] -
[2020-01-22 10:39] LABS: Absolute Lymphocyte Count 3.02 X10^3/uL (0.83-4.51); Absolute Neutrophil Count 13.5 X10^3/uL (2.0-7.7); Basophil# 0.09 X10^3/uL; Basophil% 0.5 % (0-1); Eosinophil# 0.26 X10^3/uL; Eosinophils% 1.4 % (0-5); Hematocrit 42.1 % (37-47); Hemoglobin 13.2 g/dL (12.0-15.0); Lymphocyte # 3.02 X10^3/ul (4.0); Lymphocyte % 16.8 % (19-41); Mean Corp Hgb Conc 31.4 g/dL (32-36); Mean Corpuscular Hgb 27.1 pg (27.0-32.0); Mean Corpuscular Volume 86.4 fL (81-99); Mean Platelet Vol. 9.8 fl (6.2-12.0); Monocyte# 0.95 X10^3/uL; Monocyte% 5.3 % (0-10); NRBC Flagged by Analyzer 0.1 % (0-5); Neutrophil # 13.47 X10^3/uL (2.7-7.7); Neutrophil % 74.8 % (47-70); Platelet Count 478 K/mm3 (150-450); RBC Distribution Width CV 16.5 % (11.6-14.6); RBC Distribution Width SD 52.4 fl (35.1-43.9); Red Blood Count 4.87 M/mm3 (4.2-5.4)
[2020-01-22] MEDS: Ondansetron 4 MG/2 ML Vial IV (10:42)
[2020-01-22] MEDS: Morphine 4 MG/ML Syringe IV (10:42)
[2020-01-22] MEDS: 0.9% Normal Saline 1,000 ML 1000 ML IV (10:42)
[2020-01-22 10:56] LABS: ALB/GLOB Ratio 0.7 RATIO (0.9-2.4); AST(SGOT) 18 U/L (15-37); Alanine Aminotransfer ALT/SGPT 29 U/L (13-56); Albumin, Serum 2.9 g/dL (3.2-5.0); Alkaline Phosphatase 106 U/L (45-117); Anion Gap 7 (5-15); BUN 15 mg/dL (7-18); BUN/Creat Ratio 14.2 RATIO (10-20); Calcium,Total 8.9 mg/dL (8.5-10.1); Chloride 113 mmol/L (98-107); Creatinine, Serum 1.06 mg/dL (0.55-1.02); EST Glomerular Filtration Rate 58 mL/min (>60); Est Glom Filt Rate - Afr Amer 71 mL/min (>60); Estimated Creatinine Clearance 55.44 ml/min; Globulin 4.3 g/dL (2.2-4.2); Glucose 120 mg/dL (74-106); Lipase 311 U/L (73-393); Potassium 3.5 mmol/L (3.5-5.1); Protein, Total 7.2 g/dL (6.4-8.2); Sodium Level 144 mmol/L (136-145)
[2020-01-22 11:13] LABS: Internal QC Validated? YES +Cl - CLEAR BKGD; Pregnancy, Serum, hCG Quali. NEGATIVE Negative
--- NOTE | 2020-01-22 11:30 | CT_ITS ---
INDICATION: NAUSEA, DIZZINESS, DOMINGO X 1 MONTH. HX OF GERD,COPD,HTN EXAMINATION: CT ABDOMEN AND PELVIS WITHOUT CONTRAST - CT Abdomen And Pelvis W/O Contrast Injection CLINICAL HISTORY: 49 years Female, NAUSEA, DIZZINESS, DOMINGO X 1 MONTH. HX OF GERD,COPD,HTN COMPARISON: Previous CT scan obtained on 09/09/2018 TECHNIQUE: A CT scan of the abdomen and pelvis was performed without IV contrast contrast administration. Coronal and sagittal reconstruction images were reviewed. This exam was performed according to our departmental dose-optimization program, which includes automated exposure control, adjustment of the mA and/or kV according to patient size and/or use of iterative reconstruction technique. FINDINGS: The lung bases and the base of the heart are normal. The liver is normal.The spleen is normal.The adrenal glands are normal.The head, body, and tail of the pancreas are normal. Bilateral nonobstructive nephrocalcinosis identified. Both ureters appear to be normal, and no obstructive uropathy is identified. The abdominal aortal is normal along its course and distribution. No paraortic lymphadenopathy is seen. No abdominal masses or lesions are seen. The CT scan of the pelvis was then reviewed. The common iliac vessels, external iliac vessels, and common femoral vessels are normal along their course and distribution No pelvis masses or lesions are seen. The appendix is not seen. No pericecal inflammatory reaction is seen. Bone scanning windows of the lumbar spine and pelvis were reviewed in the coronal and sagittal planes and appear to be normal. CT/Abdomen/Pelvis without Cont IMPRESSION: Bilateral nonobstructive nephrocalcinosis is identified in this otherwise normal unenhanced CT scan of the abdomen and pelvis. Electronically Signed: Shemar Waggoner, at 12:11 EST Tel , Service support ,
--- NOTE | 2020-01-22 11:35 | RAD_ITS ---
EXAM DESCRIPTION: PA and lateral chest CLINICAL HISTORY: 49 years Female, NAUSEA, DIZZINESS, HEADACHE X1 MONTH. NAUSEA, DIZZINESS, HEADACHE X1 MONTH. COMPARISON: 11/29/2019 FINDINGS: The thorax is intact. The heart and mediastinum appear to be within normal limits. The lungs appear to be well areated without evidence of pneumonic consolidation or pleural effusion. RAD/Chest PA and Lateral IMPRESSION: Normal PA and lateral chest. Electronically Signed: Shemar Waggoner, at 11:53 EST Tel , Service support ,
[2020-01-22 13:27] VITALS: BP 111/45; PULSE 86; RESP 18; O2SAT 96
[2020-01-22 13:40] LABS: Mucous, Urine 0 SEEN /hpf (<or=2+)
[2020-01-22 13:43] LABS: Color, Urine Yellow (Yellow); Glucose, Dipstick Normal (Normal); Ketone-Dipstick Negative (Negative); Leukocyte Esterase-Dipstick 25 /ul (Negative); Nitrite-Dipstick Negative (Negative); Occult Blood-Urine 10 /ul (Negative); Protein-Dipstick 15 mg/dl (Negative); Urine Bilirubin Dipstick Negative (Negative); Urine Clarity Sl. Cloudy (Clear); Urine Urobilinogen Normal (Normal)
[2020-01-22 13:49] LABS: Bacteria 1+ /hpf (None Seen); Red Blood Cells-Urine 0-5 SEEN /hpf (0-5); Squamous Epithelial Cells - UA 0-5 SEEN /hpf (5-10); White Blood Cells 0-5 SEEN /hpf (0-5)
== END 2020-01-22 15:12 | disposition home or self-care (01) ==
LOC: ED 10:48
PROVIDERS: Emergency Provider Emergency Medicine; PCP Nurse Practitioner Family
DX: R11.0 Nausea (principal); D72.829 Elevated white blood cell count, unspecified; E66.9 Obesity, unspecified; Z68.43 Body mass index [BMI] 50.0-59.9, adult
CPT/HCPCS: 71046; 74176; 80053; 81001; 83690; 84484; 84703; 85025; 93005; 96361; 96374; 96375; 99282; J7030; A4216; J2405

== ENCOUNTER → 2020-01-23 07:08 | Outpatient (CLI) | payer MEDICARE, MEDICAID, SELFPAY ==
[2020-01-22 09:57] VITALS: BMI 51.5
[2020-01-23 08:12] LABS: Hemoglobin A1c 7.8 % (3.8-5.6)
[2020-01-23 08:39] LABS: T4 Free Direct 1.15 ng/dL (0.76-1.46); Thyroid Stim Hormone (TSH) 0.01 uIU/mL (0.358-3.74)
== END ==
PROVIDERS: PCP Nurse Practitioner Family; Referring Provider Nurse Practitioner Family; Visit Provider Nurse Practitioner Family
DX: R73.01 Impaired fasting glucose (principal); E03.9 Hypothyroidism, unspecified
CPT/HCPCS: 36415; 83036; 84439; 84443

== ENCOUNTER → 2020-02-05 09:55 | Outpatient (CLI) | payer MEDICARE, MEDICAID, SELFPAY ==
[2020-01-22 09:57] VITALS: BMI 51.5
[2020-02-01 15:24] VITALS: BMI 51.5
== END ==
PROVIDERS: PCP Nurse Practitioner Family; Referring Provider Nurse Practitioner Family; Visit Provider Nurse Practitioner Family
DX: R06.02 Shortness of breath (principal)
CPT/HCPCS: 36415

== ENCOUNTER → 2020-02-25 13:38 | Outpatient (CLI) | payer MEDICARE, MEDICAID, SELFPAY ==
[2020-02-01 15:24] VITALS: BMI 51.5
[2020-02-25 13:58] LABS: Hematocrit 43.8 % (37-47); Hemoglobin 13.4 g/dL (12.0-15.0); Mean Corp Hgb Conc 30.6 g/dL (32-36); Mean Corpuscular Hgb 26.5 pg (27.0-32.0); Mean Corpuscular Volume 86.6 fL (81-99); Mean Platelet Vol. 9.8 fl (6.2-12.0); Platelet Count 510 K/mm3 (150-450); RBC Distribution Width CV 16.8 % (11.6-14.6); RBC Distribution Width SD 53.1 fl (35.1-43.9); Red Blood Count 5.06 M/mm3 (4.2-5.4); White Blood Count 12.3 K/mm3 (4.4-11.0)
[2020-02-25 14:24] LABS: ALB/GLOB Ratio 0.9 RATIO (0.9-2.4); AST(SGOT) 16 U/L (15-37); Alanine Aminotransfer ALT/SGPT 20 U/L (13-56); Albumin, Serum 3.7 g/dL (3.2-5.0); Alkaline Phosphatase 92 U/L (45-117); Anion Gap 9 (5-15); BUN 13 mg/dL (7-18); BUN/Creat Ratio 10.7 RATIO (10-20); Calcium,Total 9.1 mg/dL (8.5-10.1); Chloride 108 mmol/L (98-107); Creatinine, Serum 1.22 mg/dL (0.55-1.02); EST Glomerular Filtration Rate 50 mL/min (>60); Est Glom Filt Rate - Afr Amer 60 mL/min (>60); Globulin 3.9 g/dL (2.2-4.2); Glucose 111 mg/dL (74-106); Potassium 3.8 mmol/L (3.5-5.1); Protein, Total 7.6 g/dL (6.4-8.2); Sodium Level 139 mmol/L (136-145)
== END ==
LOC: LAB.FUTURE 13:39 → LAB 13:41
PROVIDERS: PCP Nurse Practitioner Family; Visit Provider Nurse Practitioner Family
DX: R25.2 Cramp and spasm (principal)
CPT/HCPCS: 36415; 80053; 85027

== ENCOUNTER → 2020-03-07 08:53 | Outpatient (CLI) | payer MEDICARE, MEDICAID, SELFPAY ==
[2020-02-01 15:24] VITALS: BMI 51.5
[2020-03-07 09:59] LABS: Hematocrit 40.2 % (37-47); Hemoglobin 12.2 g/dL (12.0-15.0); Mean Corp Hgb Conc 30.3 g/dL (32-36); Mean Corpuscular Hgb 26.2 pg (27.0-32.0); Mean Corpuscular Volume 86.3 fL (81-99); Mean Platelet Vol. 9.8 fl (6.2-12.0); Platelet Count 454 K/mm3 (150-450); RBC Distribution Width CV 17.3 % (11.6-14.6); RBC Distribution Width SD 54.4 fl (35.1-43.9); Red Blood Count 4.66 M/mm3 (4.2-5.4); White Blood Count 7.7 K/mm3 (4.4-11.0)
[2020-03-07 10:02] LABS: Erythrocyte Sedimentation Rate 19 mm/hr (0-30)
[2020-03-07 10:35] LABS: Vitamin B12 277 pg/mL (211-911); Vitamin D,25 Hydroxy 14.7 ng/mL
[2020-03-07 11:23] LABS: ALB/GLOB Ratio 0.9 RATIO (0.9-2.4); AST(SGOT) 13 U/L (15-37); Alanine Aminotransfer ALT/SGPT 23 U/L (13-56); Albumin, Serum 3.5 g/dL (3.2-5.0); Alkaline Phosphatase 74 U/L (45-117); Anion Gap 9 (5-15); BUN 10 mg/dL (7-18); BUN/Creat Ratio 7.6 RATIO (10-20); Bilirubin, Direct 0.06 mg/dL (0.00-0.30); CRP < 2.90 mg/L (0.0-3.0); Calcium,Total 8.5 mg/dL (8.5-10.1); Chloride 114 mmol/L (98-107); Cholesterol 259 mg/dL (200); Creatinine, Serum 1.32 mg/dL (0.55-1.02); EST Glomerular Filtration Rate 45 mL/min (>60); Est Glom Filt Rate - Afr Amer 55 mL/min (>60); Globulin 3.7 g/dL (2.2-4.2); Glucose 111 mg/dL (74-106); High Density Lipoprotein 38 mg/dL; Iron 33 ug/dL (50-170); Iron Binding Capacity,Total 510 ug/dL (250-450); Potassium 3.5 mmol/L (3.5-5.1); Protein, Total 7.2 g/dL (6.4-8.2); Rheumatoid Factor < 10.0 IU/mL (<15); Sodium Level 143 mmol/L (136-145); T4 Free Direct 0.27 ng/dL (0.76-1.46); Triglycerides 173 mg/dL; Uric Acid 6.7 mg/dL (2.6-6.0); Very Low Density Lipoprotein 35 mg/dL (5-40)
[2020-03-10 16:08] LABS: Aldolase 3.8 U/L (3.3-10.3); PROEL- Albumin 3.5 g/dL (2.9-4.4); PROEL- Alpha-1 Globulin 0.2 g/dL (0.0-0.4); PROEL- Alpha-2 Globulin 0.8 g/dL (0.4-1.0); PROEL- Beta Globulin 1.3 g/dL (0.7-1.3); PROEL- Globulin, Total 3.4 g/dL (2.2-3.9); PROEL- TOTAL PROTEIN 6.9 g/dL (6.0-8.5)
[2020-03-10 18:35] LABS: Myoglobin, Serum 45 ng/mL (25-58)
[2020-03-10 18:38] LABS: ANTINUCLEAR ANTIBODIES DIRECT Negative (Negative)
== END ==
PROVIDERS: Physician Assistant Medical; PCP Nurse Practitioner Family; Referring Provider Nurse Practitioner Family; Visit Provider Nurse Practitioner Family
DX: R25.2 Cramp and spasm (principal); E03.9 Hypothyroidism, unspecified; E79.0 Hyperuricemia without signs of inflammatory arthritis and tophaceous disease; M79.10 Myalgia, unspecified site; D50.9 Iron deficiency anemia, unspecified; E11.9 Type 2 diabetes mellitus without complications; E78.5 Hyperlipidemia, unspecified; E55.9 Vitamin D deficiency, unspecified
CPT/HCPCS: 36415; 80053; 80061; 82085; 82248; 82306; 82607; 83036; 83540; 83550; 83874; 84165; 84439; 84443; 84550; 85027; 85652; 86038; 86140; 86431

== ENCOUNTER → 2020-03-20 16:54 | Outpatient (CLI) | payer MEDICARE, MEDICAID, SELFPAY ==
[2020-02-01 15:24] VITALS: BMI 51.5
--- NOTE | 2020-03-20 17:07 | MRI_ITS ---
STUDY: MRI RIGHT WRIST WITHOUT CONTRAST REASON FOR EXAM: Female, 49 years old. right wrist pain TECHNIQUE: Standardized fat and water weighted pulse sequences were obtained in all 3 orthogonal planes. COMPARISON: X-ray dated 11/04/2013. FINDINGS: Motion limited evaluation. Low-grade dorsal capsular sprain. Mild soft tissue swelling. No acute fracture, dislocation or osseous destruction. No significant bone marrow edema or contusion. Small volume metacarpophalangeal and intercarpal joint effusions. Median nerve enlargement and increased T2 signal (axial image 19 series 4). Normal flexor and extensor tendons. Small radial volar ganglion cyst measuring 7 mm (coronal image 12 series 10). Normal visualized distal radius and ulna. Normal distal radioulnar Articulation (DRUJ). Normal triangular fibrocartilaginous complex (TFCC). Normal visualized interosseous scapholunate ligament. Normal visualized dorsal (extrinsic) ligaments. MRI/Upper Ext Joint Only(Routine) IMPRESSION: Motion limited evaluation Acute on chronic median neuritis Small volume joint effusions with small radial volar ganglion cyst Low-grade dorsal capsular sprain (potentially chronic) Electronically Signed: Anam Galicia DO at 9:18 EST Tel , Service support ,
== END ==
PROVIDERS: PCP Nurse Practitioner Family; Referring Provider Orthopaedic Surgery; Visit Provider Orthopaedic Surgery
DX: M79.641 Pain in right hand (principal)
CPT/HCPCS: 73221

== ENCOUNTER → 2020-04-21 10:26 | Outpatient (CLI) | payer MEDICARE, MEDICAID, SELFPAY ==
[2020-04-02 13:58] VITALS: BMI 53.5
[2020-04-21 11:36] LABS: Hematocrit 42.1 % (37-47); Hemoglobin 12.6 g/dL (12.0-15.0); Mean Corp Hgb Conc 29.9 g/dL (32-36); Mean Corpuscular Hgb 27.6 pg (27.0-32.0); Mean Corpuscular Volume 92.1 fL (81-99); Mean Platelet Vol. 11.1 fl (6.2-12.0); POSITIVE MORPHOLOGY YES; Platelet Count 346 K/mm3 (150-450); RBC Distribution Width CV 19.9 % (11.6-14.6); RBC Distribution Width SD 66.7 fl (35.1-43.9); Red Blood Count 4.57 M/mm3 (4.2-5.4)
[2020-04-21 11:37] LABS: Scan Indicated on CBC? Y/N YES- FLAGS NOTED
[2020-04-21 11:59] LABS: Vitamin D,25 Hydroxy 15.4 ng/mL
[2020-04-21 12:39] LABS: ALB/GLOB Ratio 1.2 RATIO (0.9-2.4); AST(SGOT) 20 U/L (15-37); Alanine Aminotransfer ALT/SGPT 28 U/L (13-56); Albumin, Serum 4.1 g/dL (3.2-5.0); Alkaline Phosphatase 61 U/L (45-117); Anion Gap 8 (5-15); BUN 10 mg/dL (7-18); BUN/Creat Ratio 6.2 RATIO (10-20); Calcium,Total 9.1 mg/dL (8.5-10.1); Chloride 111 mmol/L (98-107); Cholesterol 276 mg/dL (200); Creatinine, Serum 1.61 mg/dL (0.55-1.02); EST Glomerular Filtration Rate 36 mL/min (>60); Est Glom Filt Rate - Afr Amer 44 mL/min (>60); Globulin 3.4 g/dL (2.2-4.2); Glucose 105 mg/dL (74-106); High Density Lipoprotein 45 mg/dL; Potassium 3.9 mmol/L (3.5-5.1); Protein, Total 7.5 g/dL (6.4-8.2); Sodium Level 142 mmol/L (136-145); T4 Free Direct 0.12 ng/dL (0.76-1.46); Triglycerides 200 mg/dL; Very Low Density Lipoprotein 40 mg/dL (5-40)
== END ==
PROVIDERS: PCP Nurse Practitioner Family; Referring Provider Nurse Practitioner Family; Visit Provider Nurse Practitioner Family
DX: I12.9 Hypertensive chronic kidney disease with stage 1 through stage 4 chronic kidney disease, or unspecified chronic kidney disease (principal); N18.30 Chronic kidney disease, stage 3 unspecified; E78.5 Hyperlipidemia, unspecified; E03.9 Hypothyroidism, unspecified; E55.9 Vitamin D deficiency, unspecified
CPT/HCPCS: 36415; 80053; 80061; 82306; 84439; 84443; 85027

== ENCOUNTER → 2020-05-12 13:11 | Outpatient (CLI) | payer MEDICARE, MEDICAID, SELFPAY ==
[2020-04-02 13:58] VITALS: BMI 53.5
[2020-05-12 13:32] LABS: Hematocrit 41.8 % (37-47); Hemoglobin 12.9 g/dL (12.0-15.0); Mean Corp Hgb Conc 30.9 g/dL (32-36); Mean Corpuscular Hgb 28.3 pg (27.0-32.0); Mean Corpuscular Volume 91.7 fL (81-99); Mean Platelet Vol. 10.7 fl (6.2-12.0); POSITIVE MORPHOLOGY YES; Platelet Count 359 K/mm3 (150-450); RBC Distribution Width CV 20.8 % (11.6-14.6); RBC Distribution Width SD 68.6 fl (35.1-43.9); Red Blood Count 4.56 M/mm3 (4.2-5.4); White Blood Count 8.5 K/mm3 (4.4-11.0)
[2020-05-12 13:33] LABS: Scan Indicated on CBC? Y/N YES- FLAGS NOTED
[2020-05-12 13:55] LABS: PTHIN 97.3 pg/mL (18.4-80.1)
[2020-05-12 13:59] LABS: Anion Gap 8 (5-15); BUN 14 mg/dL (7-18); BUN/Creat Ratio 9.3 RATIO (10-20); Calcium,Total 9.5 mg/dL (8.5-10.1); Chloride 109 mmol/L (98-107); EST Glomerular Filtration Rate 39 mL/min (>60); Est Glom Filt Rate - Afr Amer 47 mL/min (>60); Glucose 106 mg/dL (74-106); Sodium Level 139 mmol/L (136-145)
[2020-05-12 14:07] LABS: Differential Comment SCANNED
[2020-05-12 14:11] LABS: Vitamin D,25 Hydroxy 15.9 ng/mL
== END ==
PROVIDERS: PCP Nurse Practitioner Family; Referring Provider Student in an Organized Health Care Education/Training Program; Visit Provider Student in an Organized Health Care Education/Training Program
DX: E55.9 Vitamin D deficiency, unspecified (principal); N18.31 Chronic kidney disease, stage 3a
CPT/HCPCS: 36415; 80048; 82306; 83970; 85027

== ENCOUNTER → 2020-05-29 14:21 | Outpatient (CLI) | payer MEDICARE, MEDICAID, SELFPAY ==
[2020-04-02 13:58] VITALS: BMI 53.5
[2020-05-29 16:01] LABS: Anion Gap 8 (5-15); BUN 11 mg/dL (7-18); BUN/Creat Ratio 6.8 RATIO (10-20); Calcium,Total 9.8 mg/dL (8.5-10.1); Chloride 106 mmol/L (98-107); Creatinine, Serum 1.61 mg/dL (0.55-1.02); EST Glomerular Filtration Rate 36 mL/min (>60); Est Glom Filt Rate - Afr Amer 44 mL/min (>60); Glucose 93 mg/dL (74-106); Potassium 4.8 mmol/L (3.5-5.1); Sodium Level 137 mmol/L (136-145)
== END ==
PROVIDERS: PCP Nurse Practitioner Family; Visit Provider Student in an Organized Health Care Education/Training Program
DX: N18.32 Chronic kidney disease, stage 3b (principal)
CPT/HCPCS: 36415; 80048

== ENCOUNTER → 2020-06-17 13:03 | Outpatient (CLI) | payer MEDICARE, MEDICAID, SELFPAY ==
[2020-04-02 13:58] VITALS: BMI 53.5
[2020-06-17 13:54] LABS: Anion Gap 6 (5-15); BUN 11 mg/dL (7-18); BUN/Creat Ratio 8.6 RATIO (10-20); Chloride 107 mmol/L (98-107); Creatinine, Serum 1.28 mg/dL (0.55-1.02); EST Glomerular Filtration Rate 47 mL/min (>60); Est Glom Filt Rate - Afr Amer 57 mL/min (>60); Glucose 102 mg/dL (74-106); Potassium 3.8 mmol/L (3.5-5.1); Sodium Level 139 mmol/L (136-145)
== END ==
PROVIDERS: PCP Nurse Practitioner Family; Referring Provider Student in an Organized Health Care Education/Training Program; Visit Provider Student in an Organized Health Care Education/Training Program
DX: N18.32 Chronic kidney disease, stage 3b (principal)
CPT/HCPCS: 36415; 80048

== ENCOUNTER → 2020-07-14 12:07 | Outpatient (CLI) | payer MEDICARE, MEDICAID, SELFPAY ==
[2020-06-19 13:22] VITALS: BMI 51.2
[2020-07-14 15:48] LABS: T4 Free Direct 1.59 ng/dL (0.76-1.46)
== END ==
PROVIDERS: PCP Nurse Practitioner Family; Referring Provider Internal Medicine Endocrinology, Diabetes & Metabolism; Visit Provider Internal Medicine Endocrinology, Diabetes & Metabolism
DX: R06.09 Other forms of dyspnea (principal); E03.9 Hypothyroidism, unspecified
CPT/HCPCS: 36415; 84439; 84443

== ENCOUNTER 2020-08-14 02:02 | Inpatient (IN) | payer MEDICARE, MEDICAID, SELFPAY ==
[2020-06-19 13:22] VITALS: BMI 51.2
[2020-08-14] VITALS (22 sets, daily range): BP systolic 128–173; BP diastolic 68–106; PULSE 86–116; RESP 18–28; TEMP 36.1–36.6; O2SAT 94–99; BMI 54.3; BMI 51.9
--- NOTE | 2020-08-14 02:17 | EKG12_ITS ---
Test Reason : REPEAT EKG Blood Pressure : / mmHG Vent. Rate : 091 BPM Atrial Rate : 091 BPM P-R Int : 136 ms QRS Dur : 080 ms QT Int : 374 ms P-R-T Axes : 049 001 037 degrees QTc Int : 460 ms Normal sinus rhythm Normal ECG Confirmed by CHAR GONZALEZ, RADHA ([id number]), newspaper editor managing ZANDER MAYER ([id number]) on 08/18/2020 10:58:36 A M Referred By: MARIJA Confirmed By:TODD PARDO MD
--- NOTE | 2020-08-14 02:17 | RAD_ITS ---
STUDY: X-RAY CHEST REASON FOR EXAM: Female, 50 years old. sob TECHNIQUE: Single AP portable view of the chest. COMPARISON: 01/22/2020. FINDINGS: The lungs are clear and expanded. There is no demonstrated pleural abnormality. Normal size heart. Normal mediastinum and kumar. Normal visualized pulmonary arteries. Normal visualized aortic arch and descending thoracic aorta. Normal visualized thoracic spine. There is degenerative osteoarthritis of the bilateral shoulders. There is no demonstrated abnormality of the visualized soft tissue structures of the upper abdomen. RAD/Chest 1 View (Portable) IMPRESSION: Normal x-ray examination of the chest for age. Electronically Signed: Ya Wall MD at 3:44 EDT , Service support ,
--- NOTE | 2020-08-14 02:18 | EDS_ITS ---
HPI History of Present Illness Chief Complaint: Shortness of Breath Informant: patient Narrative Narrative: Patient is 50-year-old female with history including obstructive sleep apnea on BiPAP, hypertension, hyperlipidemia, GERD, asthma/COPD and hypothyroid presenting with shortness of breath. Patient states she started feeling short of breath yesterday. She notes tonight she went to put on her BiPAP and then felt very short of breath and was gasping for air. She states she said prior episodes which is know what causes them. States today she is been feeling fatigued and short of breath. She felt dizzy when she tried to get up and had some associated nausea and felt shaky. She does not take her diabetic medications today. She denies any associate abdominal pain, chest pain, fever, chills or urinary symptoms. She has had a mild cough has been non productive of sputum. She states tomorrow she is scheduled to have her nose and voicebox scoped to see if that is her problem. Patient does feel that her feet are more swollen bilaterally. She states she was doing on her feet that much today. She denies any other complaints at this time. [facility] Medical History (Updated 08/14/20 @ 07:[address] Candy Arreguin, DO) Anxiety Asthma Cardiac murmur Celiac disease Chest pain Dyspnea on exertion Gout Hyperlipidemia Hypersomnia Hypertension Hypothyroidism Microcytic anemia Morbid obesity with BMI of 40.0-44.9, adult Home Medications albuterol sulfate 2 puff PO Q4H PRN PRN 11/21/15 [History Last Taken 05/20/16] citalopram 40 mg tablet 40 mg PO DAILY 07/27/19 [History Last Taken Unknown] rosuvastatin 40 mg tablet 40 mg PO DAILY #90 tab 07/27/19 [Rx Last Taken Unknown] valsartan 80 mg tablet 80 mg PO DAILY #90 tab 09/03/19 [Rx Last Taken Unknown] megestrol 40 mg tablet 40 mg PO DAILY 09/28/19 [History Last Taken Unknown] furosemide 40 mg tablet 40 mg PO DAILY #90 tab 10/29/19 [Rx Last Taken Unknown] acetaminophen 650 mg tablet,extended release 1,300 mg PO QHS tab 04/02/20 [History Last Taken Unknown] amlodipine 5 mg tablet 5 mg PO DAILY tab 04/02/20 [History Last Taken Unknown] ascorbic acid (vitamin C) 500 mg tablet 500 mg PO DAILY tab 04/02/20 [History Last Taken Unknown] budesonide-formoterol HFA 160 mcg-4.5 mcg/actuation aerosol inhaler 2 puff INHALATION BID g 04/02/20 [History Last Taken Unknown] cholecalciferol (vitamin D3) 1,250 mcg (50,000 unit) capsule 50,000 unit PO QWEEK cap 04/02/20 [History Last Taken Unknown] cyanocobalamin (vitamin B-12) 1,000 mcg tablet 1,000 mcg PO DAILY tab 04/02/20 [History Last Taken Unknown] empagliflozin 25 mg tablet 25 mg PO DAILY tab 04/02/20 [History Last Taken Unknown] ferrous sulfate 325 mg (65 mg iron) tablet 325 mg PO DAILY 04/02/20 [History Last Taken Unknown] fluticasone fur. 100 mcg-umeclid 62.5 mcg-vilant 25 mcg inhalat.powder 1 ea INHALATION DAILY 04/02/20 [History Last Taken Unknown] fremanezumab-vfrm 225 mg/1.5 mL subcutaneous auto-injector 225 mg SC QMONTH ml 04/02/20 [History Last Taken Unknown] hydroxyzine HCl 25 mg tablet 25 mg PO TID PRN tab 04/02/20 [History Last Taken Unknown] levothyroxine 200 mcg tablet 200 mcg PO DAILY tab 04/02/20 [History Last Taken Unknown] loratadine 10 mg tablet 10 mg PO DAILY tab 04/02/20 [History Last Taken Unknown] magnesium oxide 500 mg tablet 500 mg PO DAILY 04/02/20 [History Last Taken Unknown] meloxicam 15 mg tablet 15 mg PO DAILY tab 04/02/20 [History Last Taken Unknown] methylprednisolone 4 mg tablets in a dose pack See Rx Instructions PO .COMPLEX 04/02/20 [History Last Taken Unknown] omeprazole 40 mg capsule,delayed release 40 mg PO DAILY cap 04/02/20 [History Last Taken Unknown] promethazine 25 mg tablet 25 mg PO Q6H PRN tab 04/02/20 [History Last Taken Unknown] topiramate 100 mg tablet 100 mg PO DAILY tab 04/02/20 [History Last Taken Unknown] ubrogepant 100 mg tablet 100 mg PO ONCE 04/02/20 [History Last Taken Unknown] gabapentin 100 mg capsule 100 mg PO TID 06/19/20 [History Last Taken Unknown] rimegepant 75 mg disintegrating tablet 75 mg PO ONCE tablet 06/19/20 [History Last Taken Unknown] Allergy/AdvReac Type Severity Reaction Status Date / Time hydrochlorothiazide AdvReac Intermediate Contributes Verified 08/14/20 02:07 to gout naproxen [From Naprosyn] AdvReac Intermediate Nausea Verified 08/14/20 02:07 aspirin AdvReac Nausea Verified 08/14/20 02:07 Family History Father , Age 72 No problems noted. Mother CAD (coronary artery disease) Myocardial infarction, Onset Age: 55 Hypertension Sister CAD (coronary artery disease) Surgical History History of carpal tunnel release History of left heart catheterization (10/06/17) history of uterine ablation Social History Smoking Status: Never smoker alcohol intake: never substance use type: does not use caffeine: No ROS ROS ED Constitutional Constitutional ED: Reports other Details: fatigue ; Denies chills or fever(s) Eyes Eyes: Denies change in vision ENT ENT ED: Denies rhinorrhea or sore throat Cardiovascular Cardiovascular: Denies chest pain or palpitations Respiratory/Chest Respiratory/Chest: Reports cough and dyspnea; Denies dyspnea on exertion or sputum Gastrointestinal Gastrointestinal: Denies abdominal pain, diarrhea, nausea or vomiting Genitourinary Genitourinary ED: Denies dysuria or hematuria Musculoskeletal Musculoskeletal: Denies myalgias Integumentary Denies rash Neurologic Neurologic: Denies headache(s) or weakness Psychiatric Psychiatric: Denies depression EXAM Physical Exam Const Vital Signs: 08/14/20 02:03 08/14/20 02:11 08/14/20 04:07 Temperature 97 F L Temperature Source Temporal Pulse Rate 102 H 98 Respiratory Rate 28 H 28 H Respiratory Effort Short of Breath Blood Pressure 173/106 H 148/93 H Blood Pressure Mean 128 111 Pulse Ox 99 98 Oxygen Delivery Method Room Air Room Air 08/14/20 04:55 08/14/20 05:00 08/14/20 05:07 Temperature Temperature Source Pulse Rate 92 93 97 Respiratory Rate 22 H Respiratory Effort Blood Pressure 132/84 H 148/103 H 139/92 H Blood Pressure Mean 100 Pulse Ox 98 Oxygen Delivery Method Room Air 08/14/20 05:41 08/14/20 06:01 Temperature Temperature Source Pulse Rate 94 95 Respiratory Rate 24 H 27 H Respiratory Effort Blood Pressure 140/92 H Blood Pressure Mean 108 Pulse Ox 97 Oxygen Delivery Method Room Air Positive well nourished, well developed and obese General Appearance ED: well developed Nutritional Appearance: obese HEENT Reports moist mucous membranes atraumatic Eyes PERRL and EOMs intact bilaterally Neck supple, no meningeal signs and no JVD Resp normal respiratory effort and clear to auscultation bilaterally Auscultation: Negative for wheezes or diminished lung sounds Cardio regular rate and regular rhythm Rate: other Other Details: + murmur GI non-tender and non-distended Auscultation: normoactive bowel sounds Palpation: soft Back/Spine normal to inspection Extremity normal to inspection General Extremety ED: Negative for edema or tenderness General Extremity: Negative for edema Neuro oriented x3 Neuro Narrative: No focal deficits Sensorium / Orientation: alert Psych mental status grossly normal Thought Process: normal thought process Skin Lesions: no lesions Rashes: no rashes MDM MDM MDM Narrative Medical decision making narrative: Patient is evaluated for worsening shortness of breath x1 day. She states she has been more fatigued and short of breath throughout the day. While she is in the ER she does develop chest pain as well. Initial work-up including troponin, EKG and BNP are normal. She does have a leukocytosis of 16.3. Patient's BMP is at her baseline. Her D-dimer is elevated. CTA obtained shows left lower lobe infiltrate versus atelectasis versus possible neoplasm. Given patient symptoms and leukocytosis I suspect this is infectious in nature. Patient is given albuterol treatment in the ER with no significant improvement. She is given nitro for chest pain which also does not improve it. She still very anxious so she is given a dose of Ativan. Patient is given broad-spectrum antibiotics to cover for commune acquired pneumonia, azithromycin and Rocephin. Should be admitted for further evaluation of pneumonia as well as her shortness of breath. She is not hypoxic but continues to be very dyspneic and tachypneic. Lab Data Attestation: I reviewed the patient's lab results. Labs: Laboratory Results - last 24 hr 08/14/20 08/14/20 08/14/20 02:15 02:15 02:15 WBC 16.3 H RBC 4.24 Hgb 12.6 Hct 40.7 MCV 96.0 MCH 29.7 MCHC 31.0 L RDW Std Deviation 55.8 H RDW Coeff of Alfredo 15.9 H Plt Count 467 H MPV 9.9 Immature Gran % (Auto) 0.900 Neut % (Auto) 71.1 H Lymph % (Auto) 19.3 [place] % (Auto) 6.1 Eos % (Auto) 2.0 Baso % (Auto) 0.6 Absolute Neuts (auto) 11.6 H Absolute Lymphs (auto) 3.14 Nucleated RBC % 0 D-Dimer Quant (PE/DVT) Sodium 141 Potassium 3.4 L Chloride 108 H Carbon Dioxide 25.0 Anion Gap 8 BUN 8 Creatinine 1.39 H Estim Creat Clear Calc 41.81 Est GFR (MDRD) Af Amer 52 L Est GFR (MDRD) Non-Af 43 L BUN/Creatinine Ratio 5.8 L Glucose 232 H Calcium 9.2 Troponin I < 0.015 B-Natriuretic Peptide 5.9 08/14/20 03:30 WBC RBC Hgb Hct MCV MCH MCHC RDW Std Deviation RDW Coeff of Alfredo Plt Count MPV Immature Gran % (Auto) Neut % (Auto) Lymph % (Auto) [place] % (Auto) Eos % (Auto) Baso % (Auto) Absolute Neuts (auto) Absolute Lymphs (auto) Nucleated RBC % D-Dimer Quant (PE/DVT) 0.95 H* Sodium Potassium Chloride Carbon Dioxide Anion Gap BUN Creatinine Estim Creat Clear Calc Est GFR (MDRD) Af Amer Est GFR (MDRD) Non-Af BUN/Creatinine Ratio Glucose Calcium Troponin I B-Natriuretic Peptide Radiography Chest X-Ray - ED: 1 View, Read by ED Physician, Read by Radiologist and No Acute Disease Diagnostic Testing: Radiology Impression Chest X-Ray 08/14/20 02:17 IMPRESSION: Normal x-ray examination of the chest for age. Electronically Signed: Ya Wall MD at 3:44 EDT , Service support , Chest CTA 08/14/20 04:00 IMPRESSION: No pulmonary embolism, aortic aneurysm, or aortic dissection. Within the left lower lobe there is a new area of focal consolidation measuring 6 x 8 mm. This nodule is of unknown etiology. This could represent neoplasia, infection, or focal atelectasis. A PET/CT or biopsy could be considered. Individualized dose optimization techniques were used for this CT. at 0455 Reported and signed by: Maksim Ford MD Electronically Signed: Maksim Ford MD at 4:54 EDT Tel , Service support , ADDENDUM: 08/14/20 0518 IMPRESSION: No pulmonary embolism, aortic aneurysm, or aortic dissection. Within the left lower lobe there is a new area of focal consolidation measuring 6 x 8 mm. This nodule is of unknown etiology. This could represent neoplasia, infection, or focal atelectasis. A PET/CT or biopsy could be considered. Individualized dose optimization techniques were used for this CT. at 0450 Reported and signed by: Maksim Ford MD N.B. : Candy Arreguin DO, confirmed on 08/14/2020 05:11:43 (ET) that the healthcare facility has received the radiology report. Electronically Signed: Maksim Ford MD at 4:54 EDT Tel , Service support , Rhythm Strip Rhythm Strip: Sinus Rhythm Rate: 98 Ectopy: None EKG Initial EKG: Attestation: I personally reviewed and interpreted this EKG as follows: Interpretation: Sinus Rhythm Comments: Normal sinus rhythm rate of 98 Slight left axis Normal intervals Normal ST segments Slight axis change compared to prior EKG on 10/10/2019 Follow-up EKG: Attestation: I personally reviewed and interpreted this EKG as follows: Interpretation: Sinus Rhythm Comments: Normal sinus rhythm at a rate of 91 No acute changes Discharge Plan Triage Chief Complaint: Shortness of Breath ED Provider: Candy Arreguin Dx/Rx/DC Orders Clinical Impression: Community acquired pneumonia, Chest pain Primary Care Provider: Casey Lutz NP Disposition Disposition: Acute Care Hospital [facility] Discharge Date/Time: 08/14/20 06:49
[2020-08-14 02:23] LABS: Absolute Lymphocyte Count 3.14 X10^3/uL (0.83-4.51); Absolute Neutrophil Count 11.6 X10^3/uL (2.0-7.7); Basophil% 0.6 % (0-1); Eosinophil# 0.33 X10^3/uL; Hematocrit 40.7 % (37-47); Hemoglobin 12.6 g/dL (12.0-15.0); Lymphocyte # 3.14 X10^3/ul (0.83-4.51); Lymphocyte % 19.3 % (19-41); Mean Corpuscular Hgb 29.7 pg (27.0-32.0); Mean Platelet Vol. 9.9 fl (6.2-12.0); Monocyte% 6.1 % (0-10); NRBC Flagged by Analyzer 0 % (0-5); Neutrophil # 11.56 X10^3/uL (2.7-7.7); Neutrophil % 71.1 % (47-70); Platelet Count 467 K/mm3 (150-450); RBC Distribution Width CV 15.9 % (11.6-14.6); RBC Distribution Width SD 55.8 fl (35.1-43.9); Red Blood Count 4.24 M/mm3 (4.2-5.4); White Blood Count 16.3 K/mm3 (4.4-11.0)
[2020-08-14 02:36] LABS: Anion Gap 8 (5-15); BUN 8 mg/dL (7-18); BUN/Creat Ratio 5.8 RATIO (10-20); Calcium,Total 9.2 mg/dL (8.5-10.1); Chloride 108 mmol/L (98-107); Creatinine, Serum 1.39 mg/dL (0.55-1.02); EST Glomerular Filtration Rate 43 mL/min (>60); Est Glom Filt Rate - Afr Amer 52 mL/min (>60); Estimated Creatinine Clearance 41.81 ml/min; Glucose 232 mg/dL (74-106); Potassium 3.4 mmol/L (3.5-5.1); Sodium Level 141 mmol/L (136-145)
[2020-08-14 02:40] LABS: BNP,B-Type NATRIURETIC PEPTIDE 5.9 pg/mL (0-100)
[2020-08-14] MEDS: LORazepam 2 MG/ML Syringe 0.5 MG IV (03:51)
[2020-08-14 03:55] LABS: D-Dimer Quantitative (DVT/PE) 0.95 FEU/ug/m (0.27-0.49)
--- NOTE | 2020-08-14 04:00 | CT_ITS ---
ACR Level 3 findings have been noted. An addendum which confirms receipt of the report will follow. HISTORY: elevated dimer, suspect PE TECHNIQUE: Helically acquired images were obtained of the chest following the intravenous administration of 100 ML of Isovue-370. Iodinated contrast. as per pulmonary angiogram protocol with 2D MIP reconstructions. A radiation dose optimization technique was used for this scan. COMPARISON: Most recent chest x-ray is from one hour earlier. Most recent CT pulmonary angiogram is from October 10, 2019. FINDINGS: # of images incl. paperwork: [id number] Respiratory motion decreases the overall utility of this study. Focal area of nodular consolidation within the left lateral costophrenic measures 6 x 8 mm. Series 2 image 105.. No effusions. Within the thoracic spinebony alignment is normal. Vertebral body height is normal. Facets are well aligned. No rib lesions are perceived. Heart is not enlarged. Thoracic aorta is normal. No aneurysms, stenoses, dissections, nor occlusions. No axillary or mediastinal adenopathy. No pulmonary emboli. The stomach is distended with gas and liquid. The gallbladder remains. The liver may be slightly enlarged. CT/CTA Chest W/WO Contrast IMPRESSION: No pulmonary embolism, aortic aneurysm, or aortic dissection. Within the left lower lobe there is a new area of focal consolidation measuring 6 x 8 mm. This nodule is of unknown etiology. This could represent neoplasia, infection, or focal atelectasis. A PET/CT or biopsy could be considered. Individualized dose optimization techniques were used for this CT. at 0455 Reported and signed by: Maksim Ford MD Electronically Signed: Maksim Ford MD at 4:54 EDT Tel , Service support ,
--- NOTE | 2020-08-14 04:34 | EKG12_ITS ---
Test Reason : SOB Blood Pressure : / mmHG Vent. Rate : 098 BPM Atrial Rate : 098 BPM P-R Int : 142 ms QRS Dur : 080 ms QT Int : 390 ms P-R-T Axes : 042 -06 027 degrees QTc Int : 497 ms Normal sinus rhythm Normal ECG Confirmed by CHAR GONZALEZ, RADHA ([id number]), medical transcription editor ZANDER MAYER ([id number]) on 08/18/2020 10:58:51 A M Referred By: MARIJA Confirmed By:TODD PARDO MD
[2020-08-14] MEDS: Nitroglycerin SL (ED/IMG/CATH) 0.4 MG TABLET SL ×2 (05:00→05:07)
[2020-08-14] MEDS: Ceftriaxone 1 GM/50 ML BAG IV (05:21)
[2020-08-14] MEDS: Ipratropium/Albuterol Sulfate 3 ML AMPUL.NEB INHALATION (05:41)
--- NOTE | 2020-08-14 06:09 | PCM.HP.STD ---
HPI - General General Date of Admission: 08/14/20 HPI Narrative COURTNEY CARMEN, is a 50 F with a significant history of COPD; asthma; morbid obesity who presents emergency department with shortness of breath x 2 nights. She reported that because of her shortness of breath she was unable to use her BiPAP. Who presents . She reports intermittent dry cough. Of while at the emergency department she had nausea and vomited. She reports chills. She reports substernal chest pain. [facility] Medical History (Updated 08/14/20 @ 07:[address] Ahsan Maurer MD) Anxiety Asthma Cardiac murmur Celiac disease Chest pain Dyspnea on exertion Gout Hyperlipidemia Hypersomnia Hypertension Hypothyroidism Microcytic anemia Morbid obesity with BMI of 40.0-44.9, adult Home Medications albuterol sulfate 2 puff PO Q4H PRN PRN 11/21/15 [History Last Taken 05/20/16] citalopram 40 mg tablet 40 mg PO DAILY 07/27/19 [History Last Taken Unknown] rosuvastatin 40 mg tablet 40 mg PO DAILY #90 tab 07/27/19 [Rx Last Taken Unknown] valsartan 80 mg tablet 80 mg PO DAILY #90 tab 09/03/19 [Rx Last Taken Unknown] megestrol 40 mg tablet 40 mg PO DAILY 09/28/19 [History Last Taken Unknown] furosemide 40 mg tablet 40 mg PO DAILY #90 tab 10/29/19 [Rx Last Taken Unknown] acetaminophen 650 mg tablet,extended release 1,300 mg PO QHS tab 04/02/20 [History Last Taken Unknown] amlodipine 5 mg tablet 5 mg PO DAILY tab 04/02/20 [History Last Taken Unknown] ascorbic acid (vitamin C) 500 mg tablet 500 mg PO DAILY tab 04/02/20 [History Last Taken Unknown] budesonide-formoterol HFA 160 mcg-4.5 mcg/actuation aerosol inhaler 2 puff INHALATION BID g 04/02/20 [History Last Taken Unknown] cholecalciferol (vitamin D3) 1,250 mcg (50,000 unit) capsule 50,000 unit PO QWEEK cap 04/02/20 [History Last Taken Unknown] cyanocobalamin (vitamin B-12) 1,000 mcg tablet 1,000 mcg PO DAILY tab 04/02/20 [History Last Taken Unknown] empagliflozin 25 mg tablet 25 mg PO DAILY tab 04/02/20 [History Last Taken Unknown] ferrous sulfate 325 mg (65 mg iron) tablet 325 mg PO DAILY 04/02/20 [History Last Taken Unknown] fluticasone fur. 100 mcg-umeclid 62.5 mcg-vilant 25 mcg inhalat.powder 1 ea INHALATION DAILY 04/02/20 [History Last Taken Unknown] fremanezumab-vfrm 225 mg/1.5 mL subcutaneous auto-injector 225 mg SC QMONTH ml 04/02/20 [History Last Taken Unknown] hydroxyzine HCl 25 mg tablet 25 mg PO TID PRN tab 04/02/20 [History Last Taken Unknown] levothyroxine 200 mcg tablet 200 mcg PO DAILY tab 04/02/20 [History Last Taken Unknown] loratadine 10 mg tablet 10 mg PO DAILY tab 04/02/20 [History Last Taken Unknown] magnesium oxide 500 mg tablet 500 mg PO DAILY 04/02/20 [History Last Taken Unknown] meloxicam 15 mg tablet 15 mg PO DAILY tab 04/02/20 [History Last Taken Unknown] methylprednisolone 4 mg tablets in a dose pack See Rx Instructions PO .COMPLEX 04/02/20 [History Last Taken Unknown] omeprazole 40 mg capsule,delayed release 40 mg PO DAILY cap 04/02/20 [History Last Taken Unknown] promethazine 25 mg tablet 25 mg PO Q6H PRN tab 04/02/20 [History Last Taken Unknown] topiramate 100 mg tablet 100 mg PO DAILY tab 04/02/20 [History Last Taken Unknown] ubrogepant 100 mg tablet 100 mg PO ONCE 04/02/20 [History Last Taken Unknown] gabapentin 100 mg capsule 100 mg PO TID 06/19/20 [History Last Taken Unknown] rimegepant 75 mg disintegrating tablet 75 mg PO ONCE tablet 06/19/20 [History Last Taken Unknown] Allergy/AdvReac Type Severity Reaction Status Date / Time hydrochlorothiazide AdvReac Intermediate Contributes Verified 08/14/20 02:07 to gout naproxen [From Naprosyn] AdvReac Intermediate Nausea Verified 08/14/20 02:07 aspirin AdvReac Nausea Verified 08/14/20 02:07 Family History Father , Age 72 No problems noted. Mother CAD (coronary artery disease) Myocardial infarction, Onset Age: 55 Hypertension Sister CAD (coronary artery disease) Surgical History History of carpal tunnel release History of left heart catheterization (10/06/17) history of uterine ablation Social History Smoking Status: Never smoker alcohol intake: never substance use type: does not use caffeine: No ROS ROS Narrative 12 point review of system is negative except as stated in HPI. Vital Signs Vital Signs Vital Signs: 08/14/20 02:03 08/14/20 02:11 08/14/20 04:07 Temperature 97 F L Temperature Source Temporal Pulse Rate 102 H 98 Respiratory Rate 28 H 28 H Respiratory Effort Short of Breath Blood Pressure 173/106 H 148/93 H Blood Pressure Mean 128 111 Pulse Ox 99 98 Oxygen Delivery Method Room Air Room Air 08/14/20 04:55 08/14/20 05:00 08/14/20 05:07 Temperature Temperature Source Pulse Rate 92 93 97 Respiratory Rate 22 H Respiratory Effort Blood Pressure 132/84 H 148/103 H 139/92 H Blood Pressure Mean 100 Pulse Ox 98 Oxygen Delivery Method Room Air 08/14/20 05:41 08/14/20 06:01 Temperature Temperature Source Pulse Rate 94 95 Respiratory Rate 24 H 27 H Respiratory Effort Blood Pressure 140/92 H Blood Pressure Mean 108 Pulse Ox 97 Oxygen Delivery Method Room Air Weight Weight: 143.5 kg Body Mass Index (BMI) 54.3 Physical Exam Narrative Physical exam: General: Well-nourished, well-developed, no acute distress Head: Normocephalic, atraumatic, no tenderness Eyes: PERRLA, EOMI ENT, no trauma, moist mucous membranes, no rhinorrhea Neck: Nontender, full range of motion, no spinal tenderness, deformities, step-off CVS: Regular rate and rhythm Respiratory no acute distress, clear to auscultation bilaterally, chest wall nontender, no wheezing Abdomen: Soft, nontender, nondistended, normal bowel sounds, no masses : Deferred Back: Nontender, no CVA tenderness, no midline spinal tenderness, deformities, step-offs Extremities: Nontender full range of motion, no trauma Skin: Normal color, no trauma, abrasions Neuro: Alert, oriented, cranial nerves II through XII grossly intact. Results Lab / Micro Data Result Diagrams: 08/14/20 02:15 08/14/20 02:15 Labs: Laboratory Results - last 24 hr 08/14/20 08/14/20 08/14/20 02:15 02:15 02:15 WBC 16.3 H RBC 4.24 Hgb 12.6 Hct 40.7 MCV 96.0 MCH 29.7 MCHC 31.0 L RDW Std Deviation 55.8 H RDW Coeff of Alfredo 15.9 H Plt Count 467 H MPV 9.9 Immature Gran % (Auto) 0.900 Neut % (Auto) 71.1 H Lymph % (Auto) 19.3 Osborne % (Auto) 6.1 Eos % (Auto) 2.0 Baso % (Auto) 0.6 Absolute Neuts (auto) 11.6 H Absolute Lymphs (auto) 3.14 Nucleated RBC % 0 D-Dimer Quant (PE/DVT) Sodium 141 Potassium 3.4 L Chloride 108 H Carbon Dioxide 25.0 Anion Gap 8 BUN 8 Creatinine 1.39 H Estim Creat Clear Calc 41.81 Est GFR (MDRD) Af Amer 52 L Est GFR (MDRD) Non-Af 43 L BUN/Creatinine Ratio 5.8 L Glucose 232 H Calcium 9.2 Troponin I < 0.015 B-Natriuretic Peptide 5.9 08/14/20 03:30 WBC RBC Hgb Hct MCV MCH MCHC RDW Std Deviation RDW Coeff of Alfredo Plt Count MPV Immature Gran % (Auto) Neut % (Auto) Lymph % (Auto) Osborne % (Auto) Eos % (Auto) Baso % (Auto) Absolute Neuts (auto) Absolute Lymphs (auto) Nucleated RBC % D-Dimer Quant (PE/DVT) 0.95 H* Sodium Potassium Chloride Carbon Dioxide Anion Gap BUN Creatinine Estim Creat Clear Calc Est GFR (MDRD) Af Amer Est GFR (MDRD) Non-Af BUN/Creatinine Ratio Glucose Calcium Troponin I B-Natriuretic Peptide Micro: Microbiology 08/14/20 05:35 SARS-CoV-2 Antigen (Rapid) - Final Mucosa - Nose Radiology Impression Chest X-Ray 08/14/20 02:17 IMPRESSION: Normal x-ray examination of the chest for age. Electronically Signed: Ya Wall MD at 3:44 EDT , Service support , Chest CTA 08/14/20 04:00 IMPRESSION: No pulmonary embolism, aortic aneurysm, or aortic dissection. Within the left lower lobe there is a new area of focal consolidation measuring 6 x 8 mm. This nodule is of unknown etiology. This could represent neoplasia, infection, or focal atelectasis. A PET/CT or biopsy could be considered. Individualized dose optimization techniques were used for this CT. at 2564 Reported and signed by: Maksim Ford MD Electronically Signed: Maksim Ford MD at 4:54 EDT Tel , Service support , ADDENDUM: 08/14/20 0518 IMPRESSION: No pulmonary embolism, aortic aneurysm, or aortic dissection. Within the left lower lobe there is a new area of focal consolidation measuring 6 x 8 mm. This nodule is of unknown etiology. This could represent neoplasia, infection, or focal atelectasis. A PET/CT or biopsy could be considered. Individualized dose optimization techniques were used for this CT. at 0451 Reported and signed by: Maksim Ford MD N.B. : Candy Arreguin DO, confirmed on 08/14/2020 05:11:43 (ET) that the healthcare facility has received the radiology report. Electronically Signed: Maksim Ford MD at 4:54 EDT Tel , Service support , Assessment & Plan Assessment/Plan (1) Severe sepsis: (2) Community acquired pneumonia: QUALIFIERS: Laterality: left Lung location: unspecified part of lung Qualified Code(s): J18.9 - Pneumonia, unspecified organism (3) Morbid obesity with BMI of 40.0-44.9, adult: (4) Diabetes mellitus: QUALIFIERS: Diabetes mellitus complication detail: with nephropathy Diabetes mellitus complication status: with kidney complications Diabetes mellitus long distance operator insulin use: with longterm use Diabetes mellitus type: type 2 Qualified Code(s): E11.21 - Type 2 diabetes mellitus with diabetic nephropathy; Z79.4 - [facility] (current) use of insulin PLAN: Severe sepsis secondary congenital pneumonia Meet SIRS criteria with heart rate of more than 90 and respiratory rate of more than 20. White count of 16.3. However patient recently completed steroid therapy. Lactic acid ordered. Blood culture x2 ordered. Blood culture ?2 is pending Impression of chest x-ray by radiology chest x-ray: Normal x-rays admission of the chest. Actual chest x-ray was independently interpreted. I agree with radiologist interpretation D-dimer was elevated. CTPA with focal consolidation. Radiology is difficult to represent neoplasm, infection or focal atelectasis. Incentive spirometer ordered. After treatment for pneumonia recommend further imaging. Respiratory Gram stain and culture pending Albuterol as needed ordered Legionella antigen screen and Strep antigen ordered Chest pain Initially at the emergency department patient reported chest pain to the ED doctor. At the time of my examination she had no chest pain. Trend troponin. Placed on PCU on telemetry. Morbid obesity: Complicates care. Left eye modification recommended. Diabetes mellitus with nephropathy Patient with hyperglycemia on presentation Empagliflozin continued Accu-Chek QA CHS with correction scale insulin ordered. CKD stage IIIa Likely secondary to diabetes mellitus. Stable. DVT prophylaxis Subcutaneous Lovenox ordered. Charges/Coding Visit Charges Inpatient E&M: 30885 Init Hosp L3
[2020-08-14] MEDS: Ondansetron 4 MG/2 ML Vial IV ×2 (06:37→23:03)
--- NOTE | 2020-08-14 07:05 | EKG12_ITS ---
Test Reason : SOB Blood Pressure : / mmHG Vent. Rate : 107 BPM Atrial Rate : 107 BPM P-R Int : 138 ms QRS Dur : 086 ms QT Int : 300 ms P-R-T Axes : 053 -02 037 degrees QTc Int : 400 ms Sinus tachycardia Nonspecific T wave abnormality Abnormal ECG When compared with ECG of 14-AUG-2020 03:58, MANUAL COMPARISON REQUIRED, DATA IS UNCONFIRMED Confirmed by CHAR GONZALEZ, RADHA ([id number]), greeting card editor ZANDER MAYER ([id number]) on 08/15/2020 10:47:48 A M Referred By: HOSP Confirmed By:TODD PARDO MD
[2020-08-14 07:50] LABS: Bedside Glucose 254 mg/dL (70-110)
[2020-08-14 09:28] LABS: Lactic Acid 1.6 mmol/L (0.4-1.9)
[2020-08-14] MEDS: Budesonide Respules 0.5 MG/2 ML AMPUL.NEB. INHALATION (09:51)
[2020-08-14] MEDS: Albuterol 2.5 MG/3 ML VIAL.NEB. INHALATION ×2 (09:51→18:40)
[2020-08-14] MEDS: Citalopram 40 MG TABLET PO (10:09)
[2020-08-14] MEDS: Cyanocobalamin 500 MCG Tablet 1000 MCG PO (10:09)
[2020-08-14] MEDS: amLODIPine 5 MG Tablet PO (10:09)
[2020-08-14] MEDS: Empagliflozin 25 MG Tablet PO (10:09)
[2020-08-14] MEDS: Ascorbic Acid 500 MG Tablet PO (10:09)
[2020-08-14 10:40] LABS: Bedside Glucose 139 mg/dL (70-110)
--- NOTE | 2020-08-14 10:40 | CASEMGMT ---
RN CM GLOBAL MARKETING OPERATIONS MANAGER CM to room to meet with patient for initial transition planning/care coordination assessment. RN MONE introduced self and role at [facility]. Pt voices understanding and consents to assessment at this time. Pt resting in bed in no distress at this time. Pt is A/O at this time and answers all questions appropriately. Care providers, pharmacy, and demographics verified/updated at this time. PCP: GROUP HOME COUNSELOR Casey Lutz Specialists: Dr Bowden-pulmonology, Dr Stewart--Neurology @ [facility], Dr Rodriguez--endocrinology, [facility]-cardiology Preferred Pharmacy: [facility] [place]--[place] Insurance: [place], [place] Prescription Benefit: Yes Living Will/HPOA: States does not have LW or HCPOA . Interested in more information but states does not want to talk with SW at this time to complete paperwork. Provided information on advanced directives and given Social Service rac card with number to call if chooses in the future to utilize [facility] social work for advanced directive completion. Patient expresses understanding. LNOK: Mother, Nadeen Johnson. , Elian Gray--pt states she has been for almost 31 yrs, but her and her have been for about 2 years. Pt is aware would be legal decision maker for healthcare decisions if she were not able to make decisions for herself. Pt states she would be okay with this, as her and her still get along well and he is still involved in her life. Living Arrangements: Lives alone in one-story apt w/5 steps to enter. Pt states her mother lives in the same apt complex and they spend a lot of time together. Pt states she is independent w/ADL's. Pt and her mother either order food in, or they go out to eat, approx 1-2 x's/day. Pt's does her laundry and home tasks/cleaning. Transportation: Pt states drives self and states no transportation concerns at this time. DME: States has the following DME: Functioning glucometer w/supplies, BIPAP thru [facility] Pt states no need for further DME at this time. HHC/SNF: No history of either and pt denies needs. No needs identified. Pt wishes to return home and states has no concerns with going home at time of discharge. CM to follow for any discharge planning/needs. Pt voices no concerns/needs at this time. Advised pt to ask for CM if any questions/concerns/needs arise. Voices understanding. PLAN: Home w/family support and discharge plans in place. PT/OT fabiola pending Arminda KEYSN RN CM
--- NOTE | 2020-08-14 10:42 | EKG12_ITS ---
Test Reason : ARRTHYMIA Blood Pressure : / mmHG Vent. Rate : 099 BPM Atrial Rate : 099 BPM P-R Int : 142 ms QRS Dur : 080 ms QT Int : 310 ms P-R-T Axes : 044 -03 000 degrees QTc Int : 397 ms Normal sinus rhythm Nonspecific T wave abnormality Abnormal ECG No previous ECGs available Confirmed by CHAR GONZALEZ, RADHA ([id number]), tape editor ZANDER MAYER ([id number]) on 08/18/2020 11:17:30 A M Referred By: HOSP Confirmed By:TODD PARDO MD
--- NOTE | 2020-08-14 10:43 | PN.HOSP_ITS ---
Hospitalist Note The patient was admitted patient flow coordinator today with shortness of breath, wheezing for last 3 days progressively getting worse. Patient follows Dr. Bowden. Patient has known history of emphysema and obstructive sleep apnea. She also had significant anxiety. ABG was done reported 7.40/35/79. K3.4. Physical exam. General: Alert, Oriented x3, Cooperative, morbid obese BMI 52 HEENT: Atraumatic, PERRLA, EOMI, Normocephalic Oral: No Gingival or Mucosal Lesions/ Ulcerations Neck: Supple, No JVD, Negative Carotid Bruits Lungs: Air entry severely diminished in bilateral lung bases. Bilateral expiratory rhonchi and wheezing Cardiovascular: Sinus rhythm with PVCs, short run of NSVT. Normal S1, Normal S2, No murmurs Abdomen: Bowel Sounds Present, Soft, Non Tender, Non-Distended : No renal angle tenderness. No suprapubic tenderness. Extremities: No edema, Capillary Refill Less than 3 Seconds Skin: No rashes, No breakdown Musculoskeletal: No Tenderness to Palpation of Joints or Extremities Neurological: Cranial nerves II-XII grossly intact, Deep Tendon Reflexes 2+/4 and Symmetrical, Neuro grossly intact Psych/Mental Status: Anxious 2D echo in September 2019 interpretation Summary The estimated ejection fraction is 65 %. Stage 1 diastolic dysfunction. Unable to estimate RV systolic pressure due to insufficient tricuspid regurgitant envelope. Patient leukocytosis. No definite area consolidation on chest CT but pulmonary nodule of 6 x 8 mm left lower lobe. Advised to follow-up with Dr. Bowden. Patient empirically on IV antibiotic. Infectious work-up has been ordered. Diabetes mellitus type 2: On Accu-Chek before meals and at bedtime. Other comorbidities CKD stage IIIa. Home medication reconciliation done Clinical Impression(s) from Imaging Studies Chest X-Ray 08/14/20 02:17 IMPRESSION: Normal x-ray examination of the chest for age. Chest CTA 08/14/20 04:00 IMPRESSION: No pulmonary embolism, aortic aneurysm, or aortic dissection. Within the left lower lobe there is a new area of focal consolidation measuring 6 x 8 mm. This nodule is of unknown etiology. This could represent neoplasia, infection, or focal atelectasis. A PET/CT or biopsy could be considered.
[2020-08-14] MEDS: Insulin Lispro 100 UNIT/ML INSULN.PEN SC ×2 (12:15→16:12)
[2020-08-14 12:20] LABS: Bedside Glucose 150 mg/dL (70-110)
[2020-08-14] MEDS: Pantoprazole Sodium 40 MG Tablet PO (12:52)
[2020-08-14] MEDS: Topiramate 100 MG Tablet PO (12:52)
[2020-08-14] MEDS: Loratadine 10 MG Tablet PO (12:52)
[2020-08-14] MEDS: hydrOXYzine PAM 25 MG Capsule PO ×3 (12:52→23:03)
[2020-08-14] MEDS: Ferrous Sulfate 325 MG Tablet PO (12:52)
[2020-08-14] MEDS: Gabapentin 100 MG Capsule PO ×2 (12:53→16:13)
[2020-08-14 13:51] LABS: Allen Test Positive; Base Excess -3 mmol/L (-2 to +2); Bicarbonate 21.5 mmol/L (22-26); Blood Gas Specimen Type ART; PO2 79 mmHG (75-100); SITE R Radial; SO2 96 % (95-99); Total Carbon Dioxide 23 mmol/L; pCO2 34.8 mmHg (35-45)
[2020-08-14] MEDS: Acetaminophen 325 MG Tablet 650 MG PO (14:16)
[2020-08-14] MEDS: Potassium Chloride Oral Tablet 20 MEQ 40 MEQ PO (16:13)
[2020-08-14 16:40] LABS: Bedside Glucose 162 mg/dL (70-110)
[2020-08-14] MEDS: MELATONIN 3 MG TABLET PO (21:30)
[2020-08-14] MEDS: Atorvastatin Calcium 40 MG Tablet PO (21:30)
[2020-08-14] MEDS: Enoxaparin 40 MG/0.4 ML Syringe SC (21:31)
[2020-08-14] MEDS: Megestrol 40 MG Tablet PO (21:31)
[2020-08-14 21:36] LABS: Bedside Glucose 131 mg/dL (70-110)
[2020-08-14] MEDS: Nystatin Powder 15gm Bottle 1 APPLIC TOPICAL (22:21)
[2020-08-14] MEDS: 0.9% Saline Lock 10 ML Syringe IV (23:04)
[2020-08-15] VITALS (14 sets, daily range): BP systolic 102–153; BP diastolic 52–80; PULSE 72–99; RESP 12–24; TEMP 36.6–37.1; O2SAT 95–98
[2020-08-15] MEDS: diazePAM 5 MG Tablet PO (01:33)
[2020-08-15] MEDS: 0.9% Saline Lock 10 ML Syringe IV ×4 (06:46→22:52)
[2020-08-15] MEDS: Levothyroxine 100 MCG Tablet 200 MCG PO (06:47)
[2020-08-15 06:55] LABS: Bedside Glucose 100 mg/dL (70-110)
[2020-08-15 06:59] LABS: Absolute Lymphocyte Count 2.27 X10^3/uL (0.83-4.51); Absolute Neutrophil Count 7.1 X10^3/uL (2.0-7.7); Basophil# 0.09 X10^3/uL; Basophil% 0.8 % (0-1); Differential Indicated SCAN CRITERIA MET; Eosinophil# 0.32 X10^3/uL; Hemoglobin 12.7 g/dL (12.0-15.0); Lymphocyte # 2.27 X10^3/ul (0.83-4.51); Lymphocyte % 21.3 % (19-41); Mean Corpuscular Hgb 30.2 pg (27.0-32.0); Mean Corpuscular Volume 97.6 fL (81-99); Mean Platelet Vol. 10.4 fl (6.2-12.0); Monocyte# 0.82 X10^3/uL; Monocyte% 7.7 % (0-10); NRBC Flagged by Analyzer 0 % (0-5); Neutrophil # 7.08 X10^3/uL (2.7-7.7); Neutrophil % 66.4 % (47-70); POSITIVE COUNT YES; RBC Distribution Width SD 56.7 fl (35.1-43.9); White Blood Count 10.7 K/mm3 (4.4-11.0)
[2020-08-15] MEDS: Budesonide Respules 0.5 MG/2 ML AMPUL.NEB. INHALATION ×2 (07:07→19:04)
[2020-08-15] MEDS: Albuterol 2.5 MG/3 ML VIAL.NEB. INHALATION ×3 (07:07→19:04)
[2020-08-15 07:09] LABS: Platelet Estimate ADEQUATE (ADEQ)
[2020-08-15 07:56] LABS: Anion Gap 7 (5-15); BUN 8 mg/dL (7-18); BUN/Creat Ratio 6.2 RATIO (10-20); Calcium,Total 8.8 mg/dL (8.5-10.1); Chloride 110 mmol/L (98-107); Creatinine, Serum 1.28 mg/dL (0.55-1.02); EST Glomerular Filtration Rate 47 mL/min (>60); Est Glom Filt Rate - Afr Amer 57 mL/min (>60); Estimated Creatinine Clearance 47.31 ml/min; Glucose 110 mg/dL (74-106); Potassium 3.9 mmol/L (3.5-5.1); Sodium Level 142 mmol/L (136-145)
[2020-08-15] MEDS: Ferrous Sulfate 325 MG Tablet PO (09:03)
[2020-08-15] MEDS: Gabapentin 100 MG Capsule PO ×3 (09:03→16:35)
[2020-08-15] MEDS: Enoxaparin 40 MG/0.4 ML Syringe SC ×2 (09:03→21:38)
[2020-08-15] MEDS: Ascorbic Acid 500 MG Tablet PO (09:05)
[2020-08-15] MEDS: amLODIPine 5 MG Tablet PO (09:05)
[2020-08-15] MEDS: Empagliflozin 25 MG Tablet PO (09:05)
[2020-08-15] MEDS: Cyanocobalamin 500 MCG Tablet 1000 MCG PO (09:05)
[2020-08-15] MEDS: Meloxicam 15 MG Tablet PO (09:05)
[2020-08-15] MEDS: Loratadine 10 MG Tablet PO (09:05)
[2020-08-15] MEDS: Topiramate 100 MG Tablet PO (09:05)
[2020-08-15] MEDS: Pantoprazole Sodium 40 MG Tablet PO (09:05)
[2020-08-15] MEDS: Citalopram 40 MG TABLET PO (09:05)
[2020-08-15] MEDS: Nystatin Powder 15gm Bottle 1 APPLIC TOPICAL ×2 (09:05→20:33)
[2020-08-15] MEDS: Losartan Potassium 25 MG Tablet PO (09:05)
[2020-08-15] MEDS: Magnesium Chloride 64 MG Delay Rel.Tablet 128 MG PO (09:17)
[2020-08-15] MEDS: Ondansetron 4 MG/2 ML Vial IV ×2 (09:17→22:49)
[2020-08-15] MEDS: hydrOXYzine PAM 25 MG Capsule PO ×3 (10:47→23:52)
[2020-08-15] MEDS: Insulin Lispro 100 UNIT/ML INSULN.PEN SC ×2 (11:18→21:38)
[2020-08-15 11:31] LABS: Bedside Glucose 203 mg/dL (70-110)
[2020-08-15] MEDS: Acetaminophen 325 MG Tablet 650 MG PO ×2 (13:23→20:34)
--- NOTE | 2020-08-15 15:25 | PN.HOSP_ITS ---
Subjective Subjective Patient shortness of breath is better. Chest pain has much improved. Seems more pleuritic in nature. Serial troponin enzymes are negative. EKG does not show significant ischemic ST-T changes. Objective Data Objective Data Vital Signs: Vital Signs Temp Pulse Resp BP Pulse Ox 97.9 F 80 18 146/52 H 95 08/15/20 15:07 08/15/20 15:07 08/15/20 15:07 08/15/20 15:07 08/15/20 15:07 Oxygen Delivery Method Bi-pap Weight: 312 lb 3.216 oz Body Mass Index (BMI) 51.9 Intake & Output: Intake and Output for Last 24 Hours 08/13/20 08/14/20 08/15/20 23:59 23:59 23:59 Intake Total 1305 / 1305 705 / 705 Balance 1305 / 1305 705 / 705 Lab / Micro Data Result Diagrams: 08/15/20 06:44 08/15/20 07:20 Labs: Laboratory Results - last 24 hr 08/14/20 08/14/20 08/15/20 16:10 21:21 06:44 WBC 10.7 RBC 4.20 Hgb 12.7 Hct 41.0 MCV 97.6 MCH 30.2 MCHC 31.0 L RDW Std Deviation 56.7 H RDW Coeff of Alfredo 16.0 H Plt Count LIBRARY TECHNICIAN MPV 10.4 Immature Gran % (Auto) 0.800 Neut % (Auto) 66.4 Lymph % (Auto) 21.3 Henderson % (Auto) 7.7 Eos % (Auto) 3.0 Baso % (Auto) 0.8 Absolute Neuts (auto) 7.1 Absolute Lymphs (auto) 2.27 Nucleated RBC % 0 Platelet Estimate ADEQUATE Sodium Potassium Chloride Carbon Dioxide Anion Gap BUN Creatinine Estim Creat Clear Calc Est GFR (MDRD) Af Amer Est GFR (MDRD) Non-Af BUN/Creatinine Ratio Glucose Calcium POC Glucose 162 H 131 H 08/15/20 08/15/20 08/15/20 06:44 06:45 07:20 WBC RBC Hgb Hct MCV MCH MCHC RDW Std Deviation RDW Coeff of Alfredo Plt Count MPV Immature Gran % (Auto) Neut % (Auto) Lymph % (Auto) Henderson % (Auto) Eos % (Auto) Baso % (Auto) Absolute Neuts (auto) Absolute Lymphs (auto) Nucleated RBC % Platelet Estimate Sodium Cancelled 142 Potassium Cancelled 3.9 Chloride Cancelled 110 H Carbon Dioxide Cancelled 25.0 Anion Gap Cancelled 7 BUN Cancelled 8 Creatinine Cancelled 1.28 H Estim Creat Clear Calc Cancelled 47.31 Est GFR (MDRD) Af Amer Cancelled 57 L Est GFR (MDRD) Non-Af Cancelled 47 L BUN/Creatinine Ratio Cancelled 6.2 L Glucose Cancelled 110 H Calcium Cancelled 8.8 POC Glucose 100 08/15/20 11:17 WBC RBC Hgb Hct MCV MCH MCHC RDW Std Deviation RDW Coeff of Alfredo Plt Count MPV Immature Gran % (Auto) Neut % (Auto) Lymph % (Auto) Henderson % (Auto) Eos % (Auto) Baso % (Auto) Absolute Neuts (auto) Absolute Lymphs (auto) Nucleated RBC % Platelet Estimate Sodium Potassium Chloride Carbon Dioxide Anion Gap BUN Creatinine Estim Creat Clear Calc Est GFR (MDRD) Af Amer Est GFR (MDRD) Non-Af BUN/Creatinine Ratio Glucose Calcium POC Glucose 203 H Micro: Microbiology 08/14/20 06:42 Urine, Clean Catch Legionella Antigen - Final 08/14/20 06:42 Urine, Clean Catch Streptococcus pneumoniae Antigen (M - Final 08/14/20 05:35 Mucosa - Nose SARS-CoV-2 Antigen (Rapid) - Final Rhythm Strip Rhythm Strip: Sinus Rhythm Rate: 98 Ectopy: None Physical Exam Narrative General: Alert, Oriented x3, Cooperative, morbid obesity BMI 52 kg/m?. HEENT: Atraumatic, PERRLA, EOMI, Normocephalic Oral: No Gingival or Mucosal Lesions/ Ulcerations Neck: Supple, No JVD, Negative Carotid Bruits Lungs: Air entry severely diminished in bilateral lung bases. Bilateral expiratory rhonchi Cardiovascular: Regular rate, Regular Rhythm, Normal S1, Normal S2, No murmurs Abdomen: Bowel Sounds Present, Soft, Non Tender, Non-Distended : No renal angle tenderness. No suprapubic tenderness. Extremities: No edema, Capillary Refill Less than 3 Seconds Skin: No rashes, No breakdown Musculoskeletal: No Tenderness to Palpation of Joints or Extremities Neurological: Cranial nerves II-XII grossly intact, Deep Tendon Reflexes 2+/4 and Symmetrical, Neuro grossly intact Psych/Mental Status: Normal Affect, Appropriate. Assessment & Plan Assessment/Plan (1) Severe sepsis: (2) Community acquired pneumonia: QUALIFIERS: Laterality: left Lung location: unspecified part of lung Qualified Code(s): J18.9 - Pneumonia, unspecified organism (3) Morbid obesity with BMI of 40.0-44.9, adult: (4) Diabetes mellitus: QUALIFIERS: Diabetes mellitus type: type 2 Diabetes mellitus correction insulin use: with watermelon inspector use Diabetes mellitus complication status: with kidney complications Diabetes mellitus complication detail: with nephropathy Qualified Code(s): E11.21 - Type 2 diabetes mellitus with diabetic nephropathy; Z79.4 - termination clerk (current) use of insulin PLAN: 1. Severe COPD exacerbation: Patient had normal lactic acid. Even though patient meets SIRS criteria but CT chest and chest x-ray does not show any focal consolidation but pulmonary nodule of 6 x 8 mm left lower lobe. Advised to follow-up with Dr. Bowden. The patient was empirically started on IV Rocephin and Zithromax. Lactic acid normal. Urinary antigens and COVID-19 antigen are negative. Respiratory panel ordered. Will discontinue Rocephin and continue Zithromax for 1 more day. Severe sepsis ruled out. ABG 7.4 0/35/79/23. Continue oxygen therapy to keep pulse ox 90%. CTPA negative for PE. 2. Atypical chest pain most commonly pleuritic in nature. Serial troponin and EKGs are negative, ACS ruled out. D echo in September 2019 interpretation Summary The estimated ejection fraction is 65 %. Stage 1 diastolic dysfunction. Unable to estimate RV systolic pressure due to insufficient tricuspid regurgitant envelope. 3. Morbid obesity: Complicates care. Left eye modification recommended. 4. Diabetes mellitus with diabetic polyneuropathy: Accu-Chek examinations cover with Humalog sliding scale. Empagliflozin held during hospital course. 5. CKD stage IIIa Likely secondary to diabetes mellitus. Creatinine stable. DVT prophylaxis Subcutaneous Lovenox ordered. Charges/Coding Visit Charges Inpatient E&M: 01851 Subs Hosp L2
[2020-08-15 16:41] LABS: Bedside Glucose 104 mg/dL (70-110)
[2020-08-15] MEDS: Megestrol 40 MG Tablet PO (20:35)
[2020-08-15] MEDS: Atorvastatin Calcium 40 MG Tablet PO (20:36)
[2020-08-15 23:00] LABS: Bedside Glucose 184 mg/dL (70-110)
[2020-08-15] MEDS: MELATONIN 3 MG TABLET PO (23:52)
[2020-08-16] VITALS (8 sets, daily range): BP systolic 104–125; BP diastolic 60–66; PULSE 81–101; RESP 16–20; TEMP 36.6–36.9; O2SAT 91–98
[2020-08-16] MEDS: Levothyroxine 100 MCG Tablet 200 MCG PO (06:25)
[2020-08-16] MEDS: Acetaminophen 325 MG Tablet 650 MG PO (06:25)
[2020-08-16] MEDS: Budesonide Respules 0.5 MG/2 ML AMPUL.NEB. INHALATION (06:43)
[2020-08-16] MEDS: Albuterol 2.5 MG/3 ML VIAL.NEB. INHALATION (06:43)
[2020-08-16 07:00] LABS: Bedside Glucose 119 mg/dL (70-110)
[2020-08-16] MEDS: 0.9% Saline Lock 10 ML Syringe IV (09:32)
[2020-08-16] MEDS: Ondansetron 4 MG/2 ML Vial IV (09:55)
[2020-08-16] MEDS: Ferrous Sulfate 325 MG Tablet PO (09:57)
[2020-08-16] MEDS: Pantoprazole Sodium 40 MG Tablet PO (09:58)
[2020-08-16] MEDS: Loratadine 10 MG Tablet PO (09:58)
[2020-08-16] MEDS: Losartan Potassium 25 MG Tablet PO (09:58)
[2020-08-16] MEDS: amLODIPine 5 MG Tablet PO (09:58)
[2020-08-16] MEDS: Gabapentin 100 MG Capsule PO (09:58)
[2020-08-16] MEDS: Citalopram 40 MG TABLET PO (09:58)
[2020-08-16] MEDS: Meloxicam 15 MG Tablet PO (09:58)
[2020-08-16] MEDS: Ascorbic Acid 500 MG Tablet PO (09:59)
[2020-08-16] MEDS: Topiramate 100 MG Tablet PO (09:59)
[2020-08-16] MEDS: Empagliflozin 25 MG Tablet PO (09:59)
[2020-08-16] MEDS: Magnesium Chloride 64 MG Delay Rel.Tablet 128 MG PO (09:59)
[2020-08-16] MEDS: hydrOXYzine PAM 25 MG Capsule PO (09:59)
[2020-08-16] MEDS: Cyanocobalamin 500 MCG Tablet 1000 MCG PO (09:59)
[2020-08-16] MEDS: Nystatin Powder 15gm Bottle 1 APPLIC TOPICAL (10:00)
--- NOTE | 2020-08-16 10:02 | DCINST_ITS ---
Documented by User: Flora Blair NP-C 08/16/20 10:09 Discharge Instructions Diet Discharge Diet: Low fat / Low cholesterol Activity Discharge Activity: Return to Normal Activity Weight Bearing Status: Full weight bearing Dressing / Incision Call your doctor if you observe: Shortness of breath, Chest pain and Increased palpitations (irregular heartbeat) Follow Up Care Test Results: Test results from this visit will be discussed in further detail at your follow-up appointment, if applicable. Discharge Plan Admission Admit Date/Time: 08/14/20 06:09 Primary Reason for Your Visit: Pneumonia Attending Provider: Frank Fontana Primary Care Provider: Casey Lutz NP Instructions Patient Instructions: Controlling High Blood Pressure, Diabetes: Understanding Carbohydrates, Diabetes: Activity Tips, ED Chest Pain, Noncardiac Additional Instructions / Restrictions: Patient Problems: Altered Health Status related to Hospitalization Patient Goals: *Optimal Level of Health *Keep Appointments *Medication Compliance *Remain Safe Discharge Orders/Prescriptions Prescriptions: New azithromycin 250 mg tablet 250 mg PO DAILY Qty: 4 RF: 0 Continued topiramate 100 mg tablet 100 mg PO DAILY RF: 0 omeprazole 40 mg capsule,delayed release(DR/EC) 40 mg PO DAILY RF: 0 promethazine 25 mg tablet 25 mg PO Q6H PRN (Reason: Nausea) RF: 0 Jardiance 25 mg tablet 25 mg PO DAILY RF: 0 magnesium oxide 500 mg tablet 500 mg PO DAILY RF: 0 Ubrelvy 100 mg tablet 100 mg PO ONCE RF: 0 amlodipine 5 mg tablet 5 mg PO DAILY RF: 0 levothyroxine 200 mcg tablet 200 mcg PO DAILY RF: 0 loratadine 10 mg tablet 10 mg PO DAILY RF: 0 cholecalciferol (vitamin D3) 1,250 mcg (50,000 unit) capsule 50,000 unit PO QWEEK RF: 0 meloxicam 15 mg tablet 15 mg PO DAILY RF: 0 cyanocobalamin (vitamin B-12) 1,000 mcg tablet 1,000 mcg PO DAILY RF: 0 acetaminophen 650 mg tablet extended release 1,300 mg PO QHS RF: 0 ascorbic acid (vitamin C) 500 mg tablet 500 mg PO DAILY RF: 0 ferrous sulfate 325 mg (65 mg iron) tablet 325 mg PO DAILY RF: 0 budesonide-formoterol 160-4.5 mcg/actuation HFA aerosol inhaler 2 puff INHALATION BID RF: 0 fremanezumab-vfrm 225 mg/1.5 mL auto-injector 225 mg SC QMONTH RF: 0 gabapentin 100 mg capsule 100 mg PO TID RF: 0 rimegepant 75 mg tablet,disintegrating 75 mg PO ONCE RF: 0 albuterol sulfate 1 PUFF inhaler 2 puff PO Q4H PRN PRN (Reason: Shortness Of Breath) RF: 0 megestrol 40 mg tablet 40 mg PO QHS RF: 0 valsartan 80 mg tablet 80 mg PO DAILY RF: 0 rosuvastatin [Crestor] 40 mg tablet 40 mg PO QHS RF: 0 Trelegy Ellipta 100-62.5-25 mcg blister with device INHALATION RF: 0 citalopram 40 mg tablet 40 mg PO DAILY RF: 0 hydroxyzine HCl 25 mg tablet 25 mg PO TID PRN (Reason: Anxiety) RF: 0 Referrals / Follow Up: Casey Lutz [employer] SALES MANAGER, [employer] SALES MANAGER-C [Primary Care Provider] - Within 2 Weeks (Please call to schedule follow up appointment) Disposition Disposition (needs filled in before D/C Order can be placed): Home, self care Documented by User: Dr. Frank Fontana MD 08/16/20 12:00 Discharge Instructions Diet Discharge Diet: Low fat / Low cholesterol, 1800 Calorie Control Diet and 2000 mg Sodium Diet Activity Discharge Activity: Return to Normal Activity and May Not Drive Weight Bearing Status: Weight bearing as tolerated Dressing / Incision Call your doctor if you observe: Fever of 101 or Higher, Coldness, Increased Pain, Change in Color, Inability to urinate, Inability to have a bowel movement, Using more than 1 pad per hour, Shortness of breath, Dizziness, Fainting spells, Swelling in the ankles, Chest pain, Prolonged hiccupping, Increased palpitations (irregular heartbeat), Calf discomfort and Uncontrolled pain Follow Up Care Please Follow Up With: Kiran Bowden MD When: In 2 weeks Discharge Plan Admission Admit Date/Time: 08/14/20 06:09 Primary Reason for Your Visit: Pneumonia Attending Provider: Frank Fontana Primary Care Provider: Casey Lutz NEW CAR SALES MANAGER Instructions Patient Instructions: Controlling High Blood Pressure, Diabetes: Understanding Carbohydrates, Diabetes: Activity Tips, ED Chest Pain, Noncardiac Additional Instructions / Restrictions: Patient Problems: Altered Health Status related to Hospitalization Patient Goals: *Optimal Level of Health *Keep Appointments *Medication Compliance *Remain Safe Discharge Orders/Prescriptions Prescriptions: New azithromycin 250 mg tablet 250 mg PO DAILY Qty: 4 RF: 0 Continued topiramate 100 mg tablet 100 mg PO DAILY RF: 0 omeprazole 40 mg capsule,delayed release(DR/EC) 40 mg PO DAILY RF: 0 promethazine 25 mg tablet 25 mg PO Q6H PRN (Reason: Nausea) RF: 0 Jardiance 25 mg tablet 25 mg PO DAILY RF: 0 magnesium oxide 500 mg tablet 500 mg PO DAILY RF: 0 Ubrelvy 100 mg tablet 100 mg PO ONCE RF: 0 amlodipine 5 mg tablet 5 mg PO DAILY RF: 0 levothyroxine 200 mcg tablet 200 mcg PO DAILY RF: 0 loratadine 10 mg tablet 10 mg PO DAILY RF: 0 cholecalciferol (vitamin D3) 1,250 mcg (50,000 unit) capsule 50,000 unit PO QWEEK RF: 0 meloxicam 15 mg tablet 15 mg PO DAILY RF: 0 cyanocobalamin (vitamin B-12) 1,000 mcg tablet 1,000 mcg PO DAILY RF: 0 acetaminophen 650 mg tablet extended release 1,300 mg PO QHS RF: 0 ascorbic acid (vitamin C) 500 mg tablet 500 mg PO DAILY RF: 0 ferrous sulfate 325 mg (65 mg iron) tablet 325 mg PO DAILY RF: 0 budesonide-formoterol 160-4.5 mcg/actuation HFA aerosol inhaler 2 puff INHALATION BID RF: 0 fremanezumab-vfrm 225 mg/1.5 mL auto-injector 225 mg SC QMONTH RF: 0 gabapentin 100 mg capsule 100 mg PO TID RF: 0 rimegepant 75 mg tablet,disintegrating 75 mg PO ONCE RF: 0 albuterol sulfate 1 PUFF inhaler 2 puff PO Q4H PRN PRN (Reason: Shortness Of Breath) RF: 0 megestrol 40 mg tablet 40 mg PO QHS RF: 0 valsartan 80 mg tablet 80 mg PO DAILY RF: 0 rosuvastatin [Crestor] 40 mg tablet 40 mg PO QHS RF: 0 Trelegy Ellipta 100-62.5-25 mcg blister with device INHALATION RF: 0 citalopram 40 mg tablet 40 mg PO DAILY RF: 0 hydroxyzine HCl 25 mg tablet 25 mg PO TID PRN (Reason: Anxiety) RF: 0 Referrals / Follow Up: Casey Lutz NP, [employer] SALES MANAGER-C [Primary Care Provider] - Within 2 Weeks (Please call to schedule follow up appointment) Disposition Disposition (needs filled in before D/C Order can be placed): Home, self care
[2020-08-16] MEDS: Enoxaparin 40 MG/0.4 ML Syringe SC (10:04)
--- NOTE | 2020-08-16 10:10 | DS.PCM_ITS ---
Documented by User: MARCY BondsC 08/16/20 10:20 Providers Date of Admission: 08/14/20 Primary Care Physician: Casey Lutz NP-C Reason For Visit: COMMUNITY ACQUIRED PNEUMONIA Diagnosis Discharge Diagnosis (1) Severe sepsis: Status: Acute Code(s): A41.9 - Sepsis, unspecified organism; R65.20 - Severe sepsis without septic shock (2) Community acquired pneumonia: Status: Acute Code(s): J18.9 - Pneumonia, unspecified organism Qualifiers: Laterality: left Lung location: unspecified part of lung Qualified Code(s): J18.9 - Pneumonia, unspecified organism (3) Morbid obesity with BMI of 40.0-44.9, adult: Status: Chronic Code(s): E66.01 - Morbid (severe) obesity due to excess calories; Z68.41 - Body mass ind ex [BMI]40.0-44.9, adult (4) Diabetes mellitus: Status: Acute Code(s): E11.9 - Type 2 diabetes mellitus without complications Qualifiers: Diabetes mellitus complication detail: with nephropathy Diabetes mellitus complication status: with kidney complications Diabetes mellitus tobacco prizer insulin use: with tobacco prizer use Diabetes mellitus type: type 2 Qualified Code(s): E11.21 - Type 2 diabetes mellitus with diabetic nephropathy; Z79.4 - starter cup powder mixer (current) use of insulin Medications at Discharge Home Medications albuterol sulfate 2 puff PO Q4H PRN PRN 11/21/15 citalopram 40 mg tablet 40 mg PO DAILY 07/27/19 megestrol 40 mg tablet 40 mg PO QHS 09/28/19 acetaminophen 650 mg tablet,extended release 1,300 mg PO QHS tab 04/02/20 amlodipine 5 mg tablet 5 mg PO DAILY tab 04/02/20 ascorbic acid (vitamin C) 500 mg tablet 500 mg PO DAILY tab 04/02/20 budesonide-formoterol HFA 160 mcg-4.5 mcg/actuation aerosol inhaler 2 puff INHALATION BID g 04/02/20 cholecalciferol (vitamin D3) 1,250 mcg (50,000 unit) capsule 50,000 unit PO QWEEK cap 04/02/20 cyanocobalamin (vitamin B-12) 1,000 mcg tablet 1,000 mcg PO DAILY tab 04/02/20 empagliflozin 25 mg tablet 25 mg PO DAILY tab 04/02/20 ferrous sulfate 325 mg (65 mg iron) tablet 325 mg PO DAILY 04/02/20 fremanezumab-vfrm 225 mg/1.5 mL subcutaneous auto-injector 225 mg SC QMONTH ml 04/02/20 hydroxyzine HCl 25 mg tablet 25 mg PO TID PRN tab 04/02/20 levothyroxine 200 mcg tablet 200 mcg PO DAILY tab 04/02/20 loratadine 10 mg tablet 10 mg PO DAILY tab 04/02/20 magnesium oxide 500 mg tablet 500 mg PO DAILY 04/02/20 meloxicam 15 mg tablet 15 mg PO DAILY tab 04/02/20 omeprazole 40 mg capsule,delayed release 40 mg PO DAILY cap 04/02/20 promethazine 25 mg tablet 25 mg PO Q6H PRN tab 04/02/20 topiramate 100 mg tablet 100 mg PO DAILY tab 04/02/20 ubrogepant 100 mg tablet 100 mg PO ONCE 04/02/20 gabapentin 100 mg capsule 100 mg PO TID 06/19/20 rimegepant 75 mg disintegrating tablet 75 mg PO ONCE tablet 06/19/20 Trelegy Ellipta INHALATION 08/14/20 rosuvastatin [Crestor] 40 mg PO QHS 08/14/20 valsartan 80 mg PO DAILY 08/14/20 azithromycin 250 mg PO DAILY #4 tab 08/16/20 Hospital Course Operations None Procedures - (Chest x-ray and CTA) Summary of Care Provided Minutes Spent on Discharge: 35 Hospital Course: (1) Severe sepsis: (2) Community acquired pneumonia:QUALIFIERS: Laterality: left Lung location: unspecified part of lung Qualified Code(s): J18.9 - Pneumonia, unspecified organism (3) Morbid obesity with BMI of 40.0-44.9, adult: (4) Diabetes mellitus: QUALIFIERS: Diabetes mellitus type: type 2 Diabetes [facility] insulin use: with tobacco prizer use Diabetes mellitus complication status: with kidney complications Diabetes mellitus complication detail: with nephropathy Qualified Code(s): E11.21 - Type 2 diabetes mellitus with diabetic nephropathy; Z79.4 - assisted (current) use of insulin 1. Severe COPD exacerbation -Chest x-ray and CT completed. 6 x 8 mm left lower lobe nodule identified, patient advised to follow-up with Dr. Bowden. -Patient received 1 dose of IV Rocephin and Zithromax, will continue with p.o. azithromycin to complete antibiotic course. -Covid and respiratory panel negative -CTA negative for PE -Ambulatory pulse ox completed, no need for home O2 at this time. 2. Atypical chest pain -Resolved. Troponin and EKGs negative for acute findings. 3. Morbid obesity -Lifestyle modifications recommended including diet modification and exercise. 4. Diabetes mellitus with diabetic polyneuropathy -Continue home medication regimen upon discharge 5. CKD stage IIIa Likely secondary to diabetes mellitus. Creatinine stable. DVT prophylaxis-Lovenox This patient was seen by JAMES Bonds under the supervision of Dr. Fontana. Physical Exam Const alert, oriented x3 and no apparent distress HEENT normocephalic and head/scalp atraumatic Eyes conjunctivae normal and no scleral icterus Neck full ROM, no lymphadenopathy, supple and no JVD General: trachea midline Chest inspection of chest normal Chest: symmetrical chest wall rise Resp normal respiratory effort, normal air movement, no use of accessory muscles and clear to auscultation bilaterally Cardio regular rate, regular rhythm, S1 normal heart sound and S2 normal heart sound GI normal to inspection, nondistended, normoactive bowel sounds, soft to palpation and non-tender Extremity normal to inspection and normal capillary refill Peripheral Pulses: Yes pulses 2+ throughout Skin no rashes or lesions noted, no wounds and skin turgor normal Neuro oriented x3, moves all extremities and no focal motor deficits Psych mental status grossly normal, thought process normal, cooperative, affect normal and speech normal Weight / BMI Weight Weight: 312 lb 3.216 oz Body Mass Index (BMI) 51.9 ABG / Lab / Microbiology Data Result Diagrams: 08/15/20 06:44 08/15/20 07:20 Laboratory: Laboratory Results - last 24 hr 08/15/20 08/15/20 08/15/20 11:17 16:34 21:37 POC Glucose 203 H 104 184 H 08/16/20 06:30 POC Glucose 119 H Microbiology: Microbiology 08/14/20 08:48 Blood Culture - Preliminary Blood Culture (Wb) - Left Forearm No growth in 48 hours. 08/14/20 08:07 Blood Culture - Preliminary Blood Culture (Wb) - Right Hand No growth in 48 hours. 08/15/20 16:57 Respiratory Panel (PCR) - Final Mucosa - Nose Microbiology 08/14/20 08:48 Blood Culture (Wb) - Left Forearm Blood Culture - Preliminary No growth in 48 hours. 08/14/20 08:07 Blood Culture (Wb) - Right Hand Blood Culture - Preliminary No growth in 48 hours. 08/15/20 16:57 Mucosa - Nose Respiratory Panel (PCR) - Final 08/14/20 06:42 Urine, Clean Catch Legionella Antigen - Final 08/14/20 06:42 Urine, Clean Catch Streptococcus pneumoniae Antigen (M - Final 08/14/20 05:35 Mucosa - Nose SARS-CoV-2 Antigen (Rapid) - Final D/C Instructions Discharge Diet: Low fat / Low cholesterol Weight Bearing Status: Full weight bearing Call your doctor if you observe: Shortness of breath, Chest pain and Increased palpitations (irregular heartbeat) Meaningful Use Info Meaningful Use Diagnoses (Choose all that apply): None applicable Discharge Plan Admission Admit Date/Time: 08/14/20 06:09 Primary Reason for Your Visit: Pneumonia Attending Provider: Frank Fontana Primary Care Provider: Casey Lutz FINANCIAL COMPLIANCE MANAGER Instructions Patient Instructions: Controlling High Blood Pressure, Diabetes: Understanding Carbohydrates, Diabetes: Activity Tips, ED Chest Pain, Noncardiac Additional Instructions / Restrictions: Patient Problems: Altered Health Status related to Hospitalization Patient Goals: *Optimal Level of Health *Keep Appointments *Medication Compliance *Remain Safe Discharge Orders/Prescriptions Prescriptions: New azithromycin 250 mg tablet 250 mg PO DAILY Qty: 4 RF: 0 Continued topiramate 100 mg tablet 100 mg PO DAILY RF: 0 omeprazole 40 mg capsule,delayed release(DR/EC) 40 mg PO DAILY RF: 0 promethazine 25 mg tablet 25 mg PO Q6H PRN (Reason: Nausea) RF: 0 Jardiance 25 mg tablet 25 mg PO DAILY RF: 0 magnesium oxide 500 mg tablet 500 mg PO DAILY RF: 0 Ubrelvy 100 mg tablet 100 mg PO ONCE RF: 0 amlodipine 5 mg tablet 5 mg PO DAILY RF: 0 levothyroxine 200 mcg tablet 200 mcg PO DAILY RF: 0 loratadine 10 mg tablet 10 mg PO DAILY RF: 0 cholecalciferol (vitamin D3) 1,250 mcg (50,000 unit) capsule 50,000 unit PO QWEEK RF: 0 meloxicam 15 mg tablet 15 mg PO DAILY RF: 0 cyanocobalamin (vitamin B-12) 1,000 mcg tablet 1,000 mcg PO DAILY RF: 0 acetaminophen 650 mg tablet extended release 1,300 mg PO QHS RF: 0 ascorbic acid (vitamin C) 500 mg tablet 500 mg PO DAILY RF: 0 ferrous sulfate 325 mg (65 mg iron) tablet 325 mg PO DAILY RF: 0 budesonide-formoterol 160-4.5 mcg/actuation HFA aerosol inhaler 2 puff INHALATION BID RF: 0 fremanezumab-vfrm 225 mg/1.5 mL auto-injector 225 mg SC QMONTH RF: 0 gabapentin 100 mg capsule 100 mg PO TID RF: 0 rimegepant 75 mg tablet,disintegrating 75 mg PO ONCE RF: 0 albuterol sulfate 1 PUFF inhaler 2 puff PO Q4H PRN PRN (Reason: Shortness Of Breath) RF: 0 megestrol 40 mg tablet 40 mg PO QHS RF: 0 valsartan 80 mg tablet 80 mg PO DAILY RF: 0 rosuvastatin [Crestor] 40 mg tablet 40 mg PO QHS RF: 0 Trelegy Ellipta 100-62.5-25 mcg blister with device INHALATION RF: 0 citalopram 40 mg tablet 40 mg PO DAILY RF: 0 hydroxyzine HCl 25 mg tablet 25 mg PO TID PRN (Reason: Anxiety) RF: 0 Referrals / Follow Up: Casey Lutz NP, FINANCIAL COMPLIANCE MANAGER-C [Primary Care Provider] - Within 2 Weeks (Please call to schedule follow up appointment) Disposition Disposition (needs filled in before D/C Order can be placed): Home, self care Documented by User: Dr. Frank Fontana MD 08/16/20 12:06 Providers Date of Admission: 08/14/20 Reason For Visit: COMMUNITY ACQUIRED PNEUMONIA Medications at Discharge Home Medications albuterol sulfate 2 puff PO Q4H PRN PRN 11/21/15 citalopram 40 mg tablet 40 mg PO DAILY 07/27/19 megestrol 40 mg tablet 40 mg PO QHS 09/28/19 acetaminophen 650 mg tablet,extended release 1,300 mg PO QHS tab 04/02/20 amlodipine 5 mg tablet 5 mg PO DAILY tab 04/02/20 ascorbic acid (vitamin C) 500 mg tablet 500 mg PO DAILY tab 04/02/20 budesonide-formoterol HFA 160 mcg-4.5 mcg/actuation aerosol inhaler 2 puff INHALATION BID g 04/02/20 cholecalciferol (vitamin D3) 1,250 mcg (50,000 unit) capsule 50,000 unit PO QWEEK cap 04/02/20 cyanocobalamin (vitamin B-12) 1,000 mcg tablet 1,000 mcg PO DAILY tab 04/02/20 empagliflozin 25 mg tablet 25 mg PO DAILY tab 04/02/20 ferrous sulfate 325 mg (65 mg iron) tablet 325 mg PO DAILY 04/02/20 fremanezumab-vfrm 225 mg/1.5 mL subcutaneous auto-injector 225 mg SC QMONTH ml 04/02/20 hydroxyzine HCl 25 mg tablet 25 mg PO TID PRN tab 04/02/20 levothyroxine 200 mcg tablet 200 mcg PO DAILY tab 04/02/20 loratadine 10 mg tablet 10 mg PO DAILY tab 04/02/20 magnesium oxide 500 mg tablet 500 mg PO DAILY 04/02/20 meloxicam 15 mg tablet 15 mg PO DAILY tab 04/02/20 omeprazole 40 mg capsule,delayed release 40 mg PO DAILY cap 04/02/20 promethazine 25 mg tablet 25 mg PO Q6H PRN tab 04/02/20 topiramate 100 mg tablet 100 mg PO DAILY tab 04/02/20 ubrogepant 100 mg tablet 100 mg PO ONCE 04/02/20 gabapentin 100 mg capsule 100 mg PO TID 06/19/20 rimegepant 75 mg disintegrating tablet 75 mg PO ONCE tablet 06/19/20 Trelegy Ellipta INHALATION 08/14/20 rosuvastatin [Crestor] 40 mg PO QHS 08/14/20 valsartan 80 mg PO DAILY 08/14/20 azithromycin 250 mg PO DAILY #4 tab 08/16/20 Hospital Course Summary of Care Provided Hospital Course: This patient was seen in conjunction with NICHOLE Hines. I have independently interviewed and examined the patient and reviewed pertinent history, examination findings, laboratory and plan of management. I have reviewed the note and agree with the documented findings with the few additional points. In brief, patient was admitted for shortness of breath and wheezing for last 3 days consistent with COPD exacerbation. CT chest showed no pulmonary embolism but 6 x 8 mm left lower lobe nodule. Patient follows Dr. Bowden. Severe sepsis ruled out. Patient empirically getting Zithromax for anti-inflammatory effect for COPD exacerbation. Home qualification oxygen was done and patient did not meet criteria. Atypical chest pain mostly pleuritic in nature. Other comorbidities include diabetes mellitus type 2 with diabetic polyneuropathy CKD stage IIIA and morbid obesity. Patient also has chronic HFpEF/diastolic heart failure. Discharge medication reconciliation done. Discharge follow-up instructions completed. Discharge process discussed with the patient and all questions were answered to patient's satisfaction. Total time spent, exact 35 minutes on discharge meds reconciliation, examination, coordination of care with nurses and ancillary staff, review of imaging and blood test and discussion with the patient on follow-up instructions I have discussed my assessment with NICHOLE Hines and orders have been reviewed. Physical Exam Narrative Seen and examined. General: Alert, Oriented x3, Cooperative, morbid obesity BMI 52 kg/m?. HEENT: Atraumatic, PERRLA, EOMI, Normocephalic Oral: No Gingival or Mucosal Lesions/ Ulcerations Neck: Supple, No JVD, Negative Carotid Bruits Lungs: Air entry severely diminished in bilateral lung bases. No crepitation/rhonchi Cardiovascular: Regular rate, Regular Rhythm, Normal S1, Normal S2, No murmurs Abdomen: Bowel Sounds Present, Soft, Non Tender, Non-Distended : No renal angle tenderness. No suprapubic tenderness. Extremities: No edema, Capillary Refill Less than 3 Seconds Skin: No rashes, No breakdown Musculoskeletal: No Tenderness to Palpation of Joints or Extremities Neurological: Cranial nerves II-XII grossly intact, Deep Tendon Reflexes 2+/4 and Symmetrical, Neuro grossly intact Psych/Mental Status: Normal Affect, Appropriate. ABG / Lab / Microbiology Data Result Diagrams: 08/15/20 06:44 08/15/20 07:20 Discharge Plan Admission Admit Date/Time: 08/14/20 06:09 Primary Reason for Your Visit: Pneumonia Attending Provider: Frank Fontana Primary Care Provider: Casey Lutz FINANCIAL COMPLIANCE MANAGER Instructions Patient Instructions: Controlling High Blood Pressure, Diabetes: Understanding Carbohydrates, Diabetes: Activity Tips, ED Chest Pain, Noncardiac Additional Instructions / Restrictions: Patient Problems: Altered Health Status related to Hospitalization Patient Goals: *Optimal Level of Health *Keep Appointments *Medication Compliance *Remain Safe Discharge Orders/Prescriptions Prescriptions: New azithromycin 250 mg tablet 250 mg PO DAILY Qty: 4 RF: 0 Continued topiramate 100 mg tablet 100 mg PO DAILY RF: 0 omeprazole 40 mg capsule,delayed release(DR/EC) 40 mg PO DAILY RF: 0 promethazine 25 mg tablet 25 mg PO Q6H PRN (Reason: Nausea) RF: 0 Jardiance 25 mg tablet 25 mg PO DAILY RF: 0 magnesium oxide 500 mg tablet 500 mg PO DAILY RF: 0 Ubrelvy 100 mg tablet 100 mg PO ONCE RF: 0 amlodipine 5 mg tablet 5 mg PO DAILY RF: 0 levothyroxine 200 mcg tablet 200 mcg PO DAILY RF: 0 loratadine 10 mg tablet 10 mg PO DAILY RF: 0 cholecalciferol (vitamin D3) 1,250 mcg (50,000 unit) capsule 50,000 unit PO QWEEK RF: 0 meloxicam 15 mg tablet 15 mg PO DAILY RF: 0 cyanocobalamin (vitamin B-12) 1,000 mcg tablet 1,000 mcg PO DAILY RF: 0 acetaminophen 650 mg tablet extended release 1,300 mg PO QHS RF: 0 ascorbic acid (vitamin C) 500 mg tablet 500 mg PO DAILY RF: 0 ferrous sulfate 325 mg (65 mg iron) tablet 325 mg PO DAILY RF: 0 budesonide-formoterol 160-4.5 mcg/actuation HFA aerosol inhaler 2 puff INHALATION BID RF: 0 fremanezumab-vfrm 225 mg/1.5 mL auto-injector 225 mg SC QMONTH RF: 0 gabapentin 100 mg capsule 100 mg PO TID RF: 0 rimegepant 75 mg tablet,disintegrating 75 mg PO ONCE RF: 0 albuterol sulfate 1 PUFF inhaler 2 puff PO Q4H PRN PRN (Reason: Shortness Of Breath) RF: 0 megestrol 40 mg tablet 40 mg PO QHS RF: 0 valsartan 80 mg tablet 80 mg PO DAILY RF: 0 rosuvastatin [Crestor] 40 mg tablet 40 mg PO QHS RF: 0 Trelegy Ellipta 100-62.5-25 mcg blister with device INHALATION RF: 0 citalopram 40 mg tablet 40 mg PO DAILY RF: 0 hydroxyzine HCl 25 mg tablet 25 mg PO TID PRN (Reason: Anxiety) RF: 0 Referrals / Follow Up: Casey Lutz NP, FINANCIAL COMPLIANCE MANAGER-C [Primary Care Provider] - Within 2 Weeks (Please call to schedule follow up appointment) Disposition Disposition (needs filled in before D/C Order can be placed): Home, self care Charges/Coding Visit Charges Inpatient E&M: 36462 Disch Hosp
[2020-08-16] MEDS: Azithromycin 250 MG Tablet PO (10:18)
[2020-08-16] MEDS: Ondansetron ODT 4 MG Tablet PO (10:18)
--- NOTE | 2020-08-19 14:48 | CASEMGMT ---
INEZ SHORE Discharge Follow-up Phone Call: ANTONIO: Dwight Strata: 3 Call Date: 08/19/20 Discharge Date: 08/16/20 Time of Call: 1445 Duration: 3 min Admitting Diagnosis: Community Acquired Pneumonia INEZ SHORE completed follow-up phone call after recent hospitalization. Patient states she is doing good. Patient had no questions regarding discharge instructions. Patient was able to fill prescription without any issues. Inquired if patient had made follow-up appt with PCP and patient states she did not see the point. INEZ SHORE educated patient regarding the importance of following up with PCP after recent hospitalization. Patient voiced understanding and states she will make an appt. Patient had no further questions or concerns at this time.
== END 2020-08-16 12:00 | disposition home or self-care (01) | DRG 194 ==
LOC: ED 06:09 → PCU 06:17
PROVIDERS: Admitting Provider Hospitalist; Emergency Provider Emergency Medicine; PCP Nurse Practitioner Family; Visit Provider Internal Medicine
DX: J18.9 Pneumonia, unspecified organism (principal); J44.1 Chronic obstructive pulmonary disease with (acute) exacerbation; Z68.43 Body mass index [BMI] 50.0-59.9, adult; J44.0 Chronic obstructive pulmonary disease with (acute) lower respiratory infection; I13.0 Hypertensive heart and chronic kidney disease with heart failure and stage 1 through stage 4 chronic kidney disease, or unspecified chronic kidney disease; I50.32 Chronic diastolic (congestive) heart failure; Z20.822 Contact with and (suspected) exposure to COVID-19; E11.22 Type 2 diabetes mellitus with diabetic chronic kidney disease; N18.31 Chronic kidney disease, stage 3a; E11.42 Type 2 diabetes mellitus with diabetic polyneuropathy; E11.65 Type 2 diabetes mellitus with hyperglycemia; E78.5 Hyperlipidemia, unspecified; E03.9 Hypothyroidism, unspecified; M10.9 Gout, unspecified; G47.33 Obstructive sleep apnea (adult) (pediatric); E66.01 Morbid (severe) obesity due to excess calories; F41.9 Anxiety disorder, unspecified; Z79.890 Hormone replacement therapy; Z79.4 Long term (current) use of insulin
CPT/HCPCS: 36415; 36600; 71045; 71275; 80048; 82803; 82962; 83605; 83880; 84484; 85025; 85379; 87040; 87426; 87449; 87633; 93005; 94002; 94003; 94640; 94660; 97162; 97166; 99251; 99285; J7050; Q9967; A4216; G0463; J0696; J2405

== ENCOUNTER 2020-10-09 17:52 | Emergency (ER) | payer MEDICARE, MEDICAID, SELFPAY ==
[2020-09-30 09:57] VITALS: BMI 52.4
[2020-10-09] VITALS (9 sets, daily range): BP systolic 136–160; BP diastolic 55–97; PULSE 64–87; RESP 15–24; TEMP 36.6–37.2; O2SAT 94–98; BMI 51.0
--- NOTE | 2020-10-09 19:43 | EKG12_ITS ---
Test Reason : DYSRHYTHMIA Blood Pressure : / mmHG Vent. Rate : 057 BPM Atrial Rate : 057 BPM P-R Int : 146 ms QRS Dur : 080 ms QT Int : 494 ms P-R-T Axes : 036 -20 208 degrees QTc Int : 480 ms Sinus bradycardia with Premature atrial complexes Low voltage QRS Nonspecific T wave abnormality Confirmed by DEAN GONZALEZ, SAMI ([id number]), editor managing director ZANDER MAYER ([id number]) on 10/14/2020 8:51:12 AM Referred By: REINA Confirmed By:SAMI MORAN MD
[2020-10-09] MEDS: Ipratropium/Albuterol Sulfate 3 ML AMPUL.NEB INHALATION (19:58)
[2020-10-09] MEDS: Morphine 4 MG/ML Syringe IV (20:03)
[2020-10-09] MEDS: Ondansetron 4 MG/2 ML Vial IV (20:03)
--- NOTE | 2020-10-09 20:07 | ED.RN ---
PT WAS ACTUALLY ON ROOM AIR FOR THE LAST HOUR BECAUSE SHE HAD THE NASAL CANNULA AT THE BACK OF HER HEAD
--- NOTE | 2020-10-09 20:20 | RAD_ITS ---
INDICATION: chest pain EXAMINATION/TECHNIQUE: X-RAY - XR Chest 1 View COMPARISON: None. FINDINGS: The lungs are clear. The cardiomediastinal silhouette is unremarkable. No pleural effusion or pneumothorax. No acute osseous abnormalities. RAD/Chest 1 View (Portable) IMPRESSION: No acute radiographic abnormalities. Electronically Signed: Bernardo Brooks MD at 20:36 EDT Tel , Service support ,
--- NOTE | 2020-10-09 20:31 | EX.ED.DYSGE1 ---
HPI History of Present Illness Chief Complaint: General Illness Narrative Narrative: Patient presenting with generalized weakness, shortness of breath x2 weeks. She states has had some intermittent right-sided chest pain as well. Patient states that she was seen by her lead care manager recently. 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 Used to see Dr. Molina and has not seen a new pepper cutter yet. She states that within the last 2 weeks she was trying to get a stress test however she was unable to do a treadmill stress test. She is scheduled next for a nuclear stress test. She states again that she just feels generally weak and a little bit short of breath. Patient denies any fever, chills, myalgias, change in taste or smell. She has not had nausea or vomiting. She denies abdominal pain. She denies urinary or vaginal complaints. She denies diarrhea or constipation. [facility] Medical History Anxiety Asthma Cardiac murmur Celiac disease Chest pain Dyspnea on exertion Gout Hyperlipidemia Hypersomnia Hypertension Hypothyroidism Microcytic anemia Morbid obesity with BMI of 40.0-44.9, adult Home Medications albuterol sulfate 2 puff PO Q4H PRN PRN 11/21/15 [History Last Taken 05/20/16] citalopram 40 mg tablet 40 mg PO DAILY 07/27/19 [History Last Taken Unknown] megestrol 40 mg tablet 40 mg PO QHS 09/28/19 [History Last Taken Unknown] acetaminophen 650 mg tablet,extended release 1,300 mg PO QHS tab 04/02/20 [History Last Taken Unknown] amlodipine 5 mg tablet 5 mg PO DAILY tab 04/02/20 [History Last Taken Unknown] ascorbic acid (vitamin C) 500 mg tablet 500 mg PO DAILY tab 04/02/20 [History Last Taken Unknown] budesonide-formoterol HFA 160 mcg-4.5 mcg/actuation aerosol inhaler 2 puff INHALATION BID g 04/02/20 [History Last Taken Unknown] cholecalciferol (vitamin D3) 1,250 mcg (50,000 unit) capsule 50,000 unit PO QWEEK cap 04/02/20 [History Last Taken Unknown] cyanocobalamin (vitamin B-12) 1,000 mcg tablet 1,000 mcg PO DAILY tab 04/02/20 [History Last Taken Unknown] empagliflozin 25 mg tablet 25 mg PO DAILY tab 04/02/20 [History Last Taken Unknown] ferrous sulfate 325 mg (65 mg iron) tablet 325 mg PO DAILY 04/02/20 [History Last Taken Unknown] fremanezumab-vfrm 225 mg/1.5 mL subcutaneous auto-injector 225 mg SC QMONTH ml 04/02/20 [History Last Taken Unknown] hydroxyzine HCl 25 mg tablet 25 mg PO TID PRN tab 04/02/20 [History Last Taken Unknown] levothyroxine 200 mcg tablet 200 mcg PO DAILY tab 04/02/20 [History Last Taken Unknown] loratadine 10 mg tablet 10 mg PO DAILY tab 04/02/20 [History Last Taken Unknown] magnesium oxide 500 mg tablet 500 mg PO DAILY 04/02/20 [History Last Taken Unknown] meloxicam 15 mg tablet 15 mg PO DAILY tab 04/02/20 [History Last Taken Unknown] omeprazole 40 mg capsule,delayed release 40 mg PO DAILY cap 04/02/20 [History Last Taken Unknown] promethazine 25 mg tablet 25 mg PO Q6H PRN tab 04/02/20 [History Last Taken Unknown] topiramate 100 mg tablet 100 mg PO DAILY tab 04/02/20 [History Last Taken Unknown] ubrogepant 100 mg tablet 100 mg PO ONCE 04/02/20 [History Last Taken Unknown] rimegepant 75 mg disintegrating tablet 75 mg PO ONCE tablet 06/19/20 [History Last Taken Unknown] Trelegy Ellipta INHALATION 08/14/20 [History Last Taken Unknown] rosuvastatin [Crestor] 40 mg PO QHS 08/14/20 [History Last Taken Unknown] valsartan 80 mg PO DAILY 08/14/20 [History Last Taken Unknown] gabapentin 100 mg capsule 300 mg PO DAILY cap 09/30/20 [History Last Taken Unknown] Allergy/AdvReac Type Severity Reaction Status Date / Time hydrochlorothiazide AdvReac Intermediate Contributes Verified 10/09/20 17:57 to gout naproxen [From Naprosyn] AdvReac Intermediate Nausea Verified 10/09/20 17:57 aspirin AdvReac Nausea Verified 10/09/20 17:57 Family History Father , Age 72 No problems noted. Mother CAD (coronary artery disease) Myocardial infarction, Onset Age: 55 Hypertension Sister CAD (coronary artery disease) Surgical History History of carpal tunnel release History of left heart catheterization (10/06/17) history of uterine ablation Social History Smoking Status: Never smoker alcohol intake: never substance use type: does not use caffeine: No ROS ROS ED Constitutional Constitutional ED: Denies chills, fever(s) or sweats Eyes Eyes: Denies blurry vision or diplopia ENT ENT ED: Denies rhinorrhea or sore throat Cardiovascular Cardiovascular: Reports chest pain; Denies palpitations or racing heartbeat Respiratory/Chest Respiratory/Chest: Reports cough and dyspnea; Denies dyspnea on exertion or sputum Gastrointestinal Gastrointestinal: Denies abdominal pain, nausea or vomiting Genitourinary Genitourinary ED: Denies dysuria or hematuria Musculoskeletal Musculoskeletal: Denies arthralgias or myalgias Integumentary Denies abscess or rash Neurologic Neurologic: Denies headache(s) or weakness EXAM Physical Exam Const Vital Signs: 10/09/20 17:54 10/09/20 18:28 10/09/20 18:31 Temperature 99 F 99.0 F Temperature Source Oral Oral Pulse Rate 68 67 Respiratory Rate 20 H 24 H Respiratory Effort Normal Respiratory Depth Normal Respiratory Pattern Normal Blood Pressure 160/97 H 155/94 H Blood Pressure Mean 118 114 Pulse Ox 96 95 Oxygen Delivery Method Room Air Room Air Nasal Cannula Oxygen Flow Rate (L/min) 10/09/20 19:49 10/09/20 19:51 10/09/20 19:58 Temperature 97.8 F Temperature Source Oral Pulse Rate 64 87 Respiratory Rate 18 22 H Respiratory Effort Short of Breath Respiratory Depth Shallow Respiratory Pattern Tachypnea Blood Pressure 148/93 H Blood Pressure Mean 111 Pulse Ox 97 98 97 Oxygen Delivery Method Nasal Cannula Nasal Cannula Nasal Cannula Oxygen Flow Rate (L/min) 1.5 1.5 2 10/09/20 20:06 10/09/20 22:19 10/09/20 22:44 Temperature 98.1 F Temperature Source Oral Pulse Rate 67 72 64 Respiratory Rate 19 H 15 15 Respiratory Effort Respiratory Depth Respiratory Pattern Blood Pressure 154/89 H 138/55 H 136/72 H Blood Pressure Mean 110 82 Pulse Ox 98 98 96 Oxygen Delivery Method Room Air Room Air Oxygen Flow Rate (L/min) Positive well nourished General Appearance ED: NAD HEENT Reports moist mucous membranes Negative for trauma Eyes PERRL and EOMs intact bilaterally Neck no lymphadenopathy Resp normal respiratory effort and clear to auscultation bilaterally Cardio regular rate and regular rhythm GI normal to inspection, nondistended, normoactive bowel sounds Neuro oriented x3 and CN's II-XII intact bilaterally Sensorium / Orientation: alert Skin no rashes or lesions noted and no wounds MDM MDM MDM Narrative Medical decision making narrative: Patient presenting with multiple complaints. She is not hypoxic but she does complain of dyspnea and intermittent chest pain. She scheduled for outpatient stress test given her recent chest pains. She was unable to do treadmill stress test and is scheduled for a chemical stress test. Patient's lungs are clear to auscultation. She is not requiring any O2 but requests this. She also requests a breathing treatment although she is not wheezing. Her CBC is normal. Creatinine is near baseline. Electrolytes normal. BNP is 8.9, high-sensitivity troponin is 5.7. Given the patient has had the symptoms for a couple of weeks I do not believe she needs a repeat troponin. Her EKG shows a sinus rhythm with a ventricular rate of 57 bpm without signs of ST elevation, depression, dysrhythmia on my interpretation. Chest x-ray on my interpretation shows no acute cardiopulmonary process. Patient ambulated in the hallway and maintain normal O2 sats without oxygen. Patient counseled on findings and feels comfortable to be discharged home. She was given strict return precautions. Impression: 1. dyspnea 2. Chest pain uncertain cause Lab Data Attestation: I reviewed the patient's lab results. Labs: Laboratory Results - last 24 hr 10/09/20 10/09/20 10/09/20 21:04 21:04 21:04 WBC 10.0 RBC 4.19 L Hgb 12.3 Hct 39.5 MCV 94.3 MCH 29.4 MCHC 31.1 L RDW Std Deviation 66.3 H RDW Coeff of Alfredo 19.2 H Plt Count 342 MPV 10.3 Immature Gran % (Auto) 0.400 Neut % (Auto) 63.5 Lymph % (Auto) 24.3 Sutton % (Auto) 7.2 Eos % (Auto) 3.8 Baso % (Auto) 0.8 Absolute Neuts (auto) 6.3 Absolute Lymphs (auto) 2.42 Nucleated RBC % 0 Anisocytosis 1+ Sodium 140 Potassium 3.6 Chloride 106 Carbon Dioxide 27.0 Anion Gap 7 BUN 9 Creatinine 1.35 H Estim Creat Clear Calc 46.67 Est GFR (MDRD) Af Amer 53 L Est GFR (MDRD) Non-Af 44 L BUN/Creatinine Ratio 6.7 L Glucose 88 Calcium 8.9 Troponin I High Sens 5.7 B-Natriuretic Peptide 8.9 Radiography Diagnostic Testing: Radiology Impression Chest X-Ray 10/09/20 20:20 IMPRESSION: No acute radiographic abnormalities. Electronically Signed: Bernardo Brooks MD at 20:36 EDT Tel , Service support , Discharge Plan Triage Chief Complaint: General Illness ED Provider: Claudio Roach Dx/Rx/DC Orders Instructions: ED Chest Pain, Uncertain Cause, ED Dyspnea Prescriptions: No Action topiramate 100 mg tablet 100 mg PO DAILY RF: 0 omeprazole 40 mg capsule,delayed release(DR/EC) 40 mg PO DAILY RF: 0 promethazine 25 mg tablet 25 mg PO Q6H PRN (Reason: Nausea) RF: 0 Jardiance 25 mg tablet 25 mg PO DAILY RF: 0 magnesium oxide 500 mg tablet 500 mg PO DAILY RF: 0 Ubrelvy 100 mg tablet 100 mg PO ONCE RF: 0 amlodipine 5 mg tablet 5 mg PO DAILY RF: 0 levothyroxine 200 mcg tablet 200 mcg PO DAILY RF: 0 loratadine 10 mg tablet 10 mg PO DAILY RF: 0 cholecalciferol (vitamin D3) 1,250 mcg (50,000 unit) capsule 50,000 unit PO QWEEK RF: 0 meloxicam 15 mg tablet 15 mg PO DAILY RF: 0 cyanocobalamin (vitamin B-12) 1,000 mcg tablet 1,000 mcg PO DAILY RF: 0 acetaminophen 650 mg tablet extended release 1,300 mg PO QHS RF: 0 ascorbic acid (vitamin C) 500 mg tablet 500 mg PO DAILY RF: 0 ferrous sulfate 325 mg (65 mg iron) tablet 325 mg PO DAILY RF: 0 budesonide-formoterol [Symbicort] 160-4.5 mcg/actuation HFA aerosol inhaler 2 puff INHALATION BID RF: 0 Ajovy Autoinjector 225 mg/1.5 mL auto-injector 225 mg SC QMONTH RF: 0 rimegepant 75 mg tablet,disintegrating 75 mg PO ONCE RF: 0 gabapentin 100 mg capsule 300 mg PO DAILY RF: 0 albuterol sulfate 1 PUFF inhaler 2 puff PO Q4H PRN PRN (Reason: Shortness Of Breath) RF: 0 megestrol 40 mg tablet 40 mg PO QHS RF: 0 valsartan 80 mg tablet 80 mg PO DAILY RF: 0 rosuvastatin [Crestor] 40 mg tablet 40 mg PO QHS RF: 0 Trelegy Ellipta 100-62.5-25 mcg blister with device INHALATION RF: 0 citalopram 40 mg tablet 40 mg PO DAILY RF: 0 hydroxyzine HCl 25 mg tablet 25 mg PO TID PRN (Reason: Anxiety) RF: 0 Primary Care Provider: Casey Lutz NP Referrals: Casey Lutz NP, [employer]ATION [employer]NALYST-[employer] [Primary Care Provider] - Disposition Disposition: Home, Self Care Discharge Date/Time: 10/09/20 23:13
[2020-10-09 21:14] LABS: Absolute Lymphocyte Count 2.42 X10^3/uL (0.83-4.51); Absolute Neutrophil Count 6.3 X10^3/uL (2.0-7.7); Basophil# 0.08 X10^3/uL; Basophil% 0.8 % (0-1); Eosinophil# 0.38 X10^3/uL; Eosinophils% 3.8 % (0-5); Hematocrit 39.5 % (37-47); Hemoglobin 12.3 g/dL (12.0-15.0); Lymphocyte # 2.42 X10^3/ul (0.83-4.51); Lymphocyte % 24.3 % (19-41); Mean Corp Hgb Conc 31.1 g/dL (32-36); Mean Corpuscular Hgb 29.4 pg (27.0-32.0); Mean Corpuscular Volume 94.3 fL (81-99); Mean Platelet Vol. 10.3 fl (6.2-12.0); Monocyte# 0.72 X10^3/uL; Monocyte% 7.2 % (0-10); NRBC Flagged by Analyzer 0 % (0-5); Neutrophil # 6.32 X10^3/uL (2.7-7.7); Neutrophil % 63.5 % (47-70); POSITIVE MORPHOLOGY YES; Platelet Count 342 K/mm3 (150-450); RBC Distribution Width CV 19.2 % (11.6-14.6); RBC Distribution Width SD 66.3 fl (35.1-43.9); Red Blood Count 4.19 M/mm3 (4.2-5.4)
[2020-10-09 21:32] LABS: Anion Gap 7 (5-15); BNP,B-Type NATRIURETIC PEPTIDE 8.9 pg/mL (0-100); BUN 9 mg/dL (7-18); BUN/Creat Ratio 6.7 RATIO (10-20); Calcium,Total 8.9 mg/dL (8.5-10.1); Chloride 106 mmol/L (98-107); Creatinine, Serum 1.35 mg/dL (0.55-1.02); EST Glomerular Filtration Rate 44 mL/min (>60); Est Glom Filt Rate - Afr Amer 53 mL/min (>60); Estimated Creatinine Clearance 46.67 ml/min; Glucose 88 mg/dL (74-106); Potassium 3.6 mmol/L (3.5-5.1); Sodium Level 140 mmol/L (136-145); Troponin-I HS 5.7 pg/mL (3.0-53.7)
[2020-10-09 21:51] LABS: Differential Indicated SCAN CRITERIA MET
[2020-10-09 21:56] LABS: Anisocytosis 1+
== END 2020-10-09 23:13 | disposition home or self-care (01) ==
PROVIDERS: Emergency Provider Student in an Organized Health Care Education/Training Program; PCP Nurse Practitioner Family
DX: R06.02 Shortness of breath (principal); R07.9 Chest pain, unspecified; I10 Essential (primary) hypertension; E78.5 Hyperlipidemia, unspecified; E03.9 Hypothyroidism, unspecified; M10.9 Gout, unspecified; F41.9 Anxiety disorder, unspecified; E66.01 Morbid (severe) obesity due to excess calories; Z68.41 Body mass index [BMI] 40.0-44.9, adult; Z79.82 Long term (current) use of aspirin; Z79.899 Other long term (current) drug therapy
CPT/HCPCS: 36415; 71045; 80048; 83880; 84484; 85025; 93005; 94640; 96374; 96375; 99251; 99284; A4216; G0463; J2405

== ENCOUNTER → 2020-10-16 07:11 | Outpatient (CLI) | payer MEDICARE, MEDICAID, SELFPAY ==
[2020-09-30 09:57] VITALS: BMI 52.4
[2020-10-16 08:41] LABS: Bedside Glucose 102 mg/dL (70-110)
--- NOTE | 2020-10-21 09:12 | STRESSREP_ITS ---
Stress Test Report Date: 10-21-2020 Procedure: Pharmacologic stress nuclear imaging study Indications: Chest pain; shortness of breath/dyspnea on exertion Consent: Per the patient Procedure: The patient underwent pharmacologic (Regadenoson 0.4mg ) evaluation with a peak heart rate of 101 beats per minute (59%predicted maximal heart rate) and a peak blood pressure of 140/76 mmHg. The baseline ECG demonstrated sinus bradycardia; nonspecific ST/T wave abnormality. The peak pharmacologic ECG demonstrated continued nonspecific ST/T wave abnormality. There were no cardiac dysrhythmias pretest, during pharmacologic infusion, or recovery. There was no complaint of chest discomfort during pharmacologic infusion or recovery. The examination was discontinued secondary to completion of protocol. Impression: 1. Pharmacologic (Regadenoson) evaluation 2. Peak pharmacologic ECG with continued nonspecific ST/T wave abnormality. 3. There were no cardiac dysrhythmias pretest, during pharmacologic infusion, or recovery. 4. Nuclear images pending Myocardial perfusion imaging study: Technique: The patient was injected with 15.0 millicuries of technetium 99m Cardiolite and subsequently rest SPECT Cardiolite nuclear imaging was obtained in the horizontal long, vertical long, and short axis views. The patient underwent pharmacologic (Regadenoson) evaluation with a peak heart rate of 101 beats per minute (59% percent predicted maximal heart rate) and a peak blood pressure of 140/70 mmHg. The patient was injected with 45.0 millicuries of technetium 99m Cardiolite and subsequently stress SPECT Cardiolite nuclear imaging was obtained in the horizontal long, vertical long, and short axis views. A gated Cardiolite study at peak stress was obtained. Interpretation: Rest and stress SPECT Cardiolite nuclear imaging status post realignment, normalization, and attenuation correction demonstrate the appearance of diminished myocardial perfusion/tracer uptake in portions of the apical segments status post stress. There is end systolic thickening and brightening. The gated Cardiolite study demonstrates myocardial thickening and inward wall motion. The reported LVEF is 68%. Impression: 1. Rest and stress SPECT Cardiolite nuclear imaging demonstrate myocardial perfusion change status post stress in portions of the apical areas potentially compatible with physiologic apical thinning although an area of stress-induced myocardial ischemia cannot necessarily be excluded. 2. The gated Cardiolite study reports an LVEF of 68%. This note was generated with [employer] software. It may contain incorrect words, spelling, and punctuation that were not noted in checking the note before signing.
== END ==
PROVIDERS: PCP Nurse Practitioner Family; Referring Provider Physician Assistant Medical; Visit Provider Physician Assistant Medical
DX: R07.9 Chest pain, unspecified (principal); R06.09 Other forms of dyspnea
CPT/HCPCS: 78452; 82962; 93017; A9500; A4216; J2785

== ENCOUNTER → 2020-11-05 10:07 | Outpatient (CLI) | payer MEDICARE, MEDICAID, SELFPAY ==
[2020-11-05 12:14] LABS: Absolute Lymphocyte Count 2.07 X10^3/uL (0.83-4.51); Absolute Neutrophil Count 4.4 X10^3/uL (2.0-7.7); Basophil# 0.08 X10^3/uL; Eosinophil# 0.54 X10^3/uL; Hematocrit 42.5 % (37-47); Hemoglobin 13.2 g/dL (12.0-15.0); Lymphocyte # 2.07 X10^3/ul (0.83-4.51); Lymphocyte % 26.9 % (19-41); Mean Corp Hgb Conc 31.1 g/dL (32-36); Mean Corpuscular Hgb 30.1 pg (27.0-32.0); Mean Corpuscular Volume 96.8 fL (81-99); Mean Platelet Vol. 11.7 fl (6.2-12.0); Monocyte# 0.53 X10^3/uL; Monocyte% 6.9 % (0-10); NRBC Flagged by Analyzer 0 % (0-5); Neutrophil # 4.44 X10^3/uL (2.7-7.7); Neutrophil % 57.8 % (47-70); POSITIVE MORPHOLOGY YES; Platelet Count 286 K/mm3 (150-450); RBC Distribution Width SD 77.9 fl (35.1-43.9); Red Blood Count 4.39 M/mm3 (4.2-5.4); White Blood Count 7.7 K/mm3 (4.4-11.0)
[2020-11-05 12:16] LABS: Differential Indicated SCAN CRITERIA MET
[2020-11-05 12:20] LABS: Anion Gap 8 (5-15); BUN 9 mg/dL (7-18); BUN/Creat Ratio 5.5 RATIO (10-20); Calcium,Total 9.5 mg/dL (8.5-10.1); Chloride 107 mmol/L (98-107); Creatinine, Serum 1.63 mg/dL (0.55-1.02); EST Glomerular Filtration Rate 36 mL/min (>60); Est Glom Filt Rate - Afr Amer 43 mL/min (>60); Glucose 109 mg/dL (74-106); Potassium 4.4 mmol/L (3.5-5.1); Sodium Level 140 mmol/L (136-145)
[2020-11-05 12:31] LABS: International Normalized Ratio 1.1; Prothrombin Time (Protime)PT. 13.1 SECONDS (11.7-14.9)
[2020-11-05 12:32] LABS: Partial Thromboplast Time 30.1 Seconds (24.1-36.2)
[2020-11-05 12:37] LABS: Anisocytosis 1+
[2020-11-05 13:18] LABS: T4 Free Direct 0.13 ng/dL (0.76-1.46)
== END ==
PROVIDERS: Internal Medicine Endocrinology, Diabetes & Metabolism; PCP Nurse Practitioner Family; Referring Provider Physician Assistant Medical; Visit Provider Physician Assistant Medical
DX: R07.9 Chest pain, unspecified (principal); E03.9 Hypothyroidism, unspecified; Z98.890 Other specified postprocedural states
CPT/HCPCS: 36415; 80048; 84439; 84443; 85025; 85610; 85730

== ENCOUNTER 2020-11-05 18:30 | Outpatient (RCR) | payer MEDICARE, MEDICAID, SELFPAY ==
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
--- NOTE | 2021-03-16 09:46 | HP.PTDCNRP_ITS ---
COURTNEY CARMEN was seen in my office for initial evaluation on 10/30/20. The following Plan of Care was established for this patient: Initial Frequency: 2x /Week Initial Duration: 4 Weeks Patient/Client Instruction: Educate patient on: Condition, Plan of Care, Benefits of Fitness Program For the Purpose of:: To decrease pain, To increase ROM, To improve muscle performance and motor function, To improve ability to perform ADL's, To increase tolerance to activity/condition/position, To improve performance and independence with ADL's, To increase flexibility/ROM, To improve endurance, To improve balance, To improve health and function, To foster healthy habits, To improve tolerance to ADL's Therapeutic Exercise to Include: Strength training, Endurance training, Balance training, Body mechanics, Postural training, Flexibilty training, Active ROM, Dynamic Lumbar Stabilization, Denny Exercises For the Purpose of:: To decrease pain, To decrease swelling/inflammation, To increase ROM, To improve muscle performance and motor function, To improve ability to perform ADL's, To improve performance and independence with ADL's, To decrease soft tissue restriction, To increase flexibility/ROM, To improve endurance, To improve balance, To improve safety, To improve health and function, To foster healthy habits, To improve tolerance to ADL's Manual Therapy Techniques to Include: Mobilization, Soft tissue mobilization For the Purpose of:: To decrease pain, To decrease swelling/inflammation, To increase ROM, To improve muscle performance and motor function, To improve abili ty to perform ADL's, To increase flexibility/ROM TENS: Yes IF ES: Yes Cryotherapy (ice pack, ice massage): Yes Thermo therapy (hot pack): Yes Pelvic traction supine: Yes For the Purpose of:: To decrease pain, To decrease swelling/inflammation, To inc rease ROM, To improve ability to perform ADL's, To increase tolerance to activity/condition/position, To improve performance and independence with ADL's, To increase flexibility/ROM, To improve tolerance to ADL's This patient was last seen in our office 11/05/20. Pertinent comments regarding their Physical therapy will appear below: Pt seen for two visits of POC and did not schedule or attend any further visits. At this point, it has been over 3 months and I will discontinue from our care. At this point I will be discontinuing this patient from physical therapy. I would be happy to see this patient again in the future if found appropriate by the physician. Thank you! Anam Ochoa, DPT, OCS, CSCS Balance/Gait/Functional tests - Balance/Special Test Scores Oswestry Low Back Score: 31
== END 2020-11-05 19:00 | disposition home or self-care (01) ==
LOC: PT 18:30
PROVIDERS: PCP Nurse Practitioner Family; Referring Provider Anesthesiology Pain Medicine; Visit Provider Anesthesiology Pain Medicine
DX: M54.9 Dorsalgia, unspecified (principal); M79.606 Pain in leg, unspecified
CPT/HCPCS: 97110; 97162

== ENCOUNTER 2020-11-11 07:15 | Day surgery (SDC) | payer MEDICARE, MEDICAID, SELFPAY ==
[2020-11-10 09:25] VITALS: BMI 52.4
--- NOTE | 2020-11-10 12:48 | PCM.HP.BLA ---
History and Physical Date of Admission: 11/11/20 [facility] [id number] [place], [place] [phone] OFFICE VISITDate of Service: 11/04/20 MR#:[id number]:[id number]: NELLACOURTNEY LRep #:[id number] Provider: ROBLES Treadwell/Sex: 50/F [facility] HPI History of Present Illness Details: This is a 50-year-old female that presents here today for a cardiovascular follow-up. She is scheduled to have a heart cath 11/11/20 for an abnormal stress test. She has a history of hypertension, diastolic dysfunction, shortness of breath with exertion. She does have DAVY and does use her Bipap. Pt notes that she has been SOB. She is unable to do anything. She notes that this has progressed over the last several months. She does use her Bipap even with naps. She does still have chest pain. This is more so when it is hot outside. She was unable to walk on a treadmill at Dr. Love office d/t chest pain. Dr. Bowden is concerned with her chest pain and decrease in lung function on her chest CT. She is fatigued. She is not sleeping well. She does not have any palpitations. She does not have any edema. She does not have her medications with her today. Intake Vital Signs 11/04/20 10:33 Height 5 ft 6 in Weight: 315 lb BP 143/99 H Blood Pressure Location Lt brachial Position Sitting Respiration 18 Pulse 82 Pulse Oximetry (%) 95 Intake Visit Reasons: 6 M FU Certified Dietary Manager Required: No Accompanied by: none Is patient in pain?: No Allergies hydrochlorothiazide Adverse Reaction (Intermediate, Verified 11/04/20 14:09) Contributes to gout naproxen [From Naprosyn] Adverse Reaction (Intermediate, Verified 11/04/20 14:09) Nausea aspirin Adverse Reaction (Verified 11/04/20 14:09) Nausea Medications albuterol sulfate 2 puff PO Q4H PRN PRN 11/21/15 [History Confirmed 11/04/20] citalopram 40 mg tablet 40 mg PO DAILY 07/27/19 [History Confirmed 11/04/20] megestrol 40 mg tablet 40 mg PO QHS 09/28/19 [History Confirmed 11/04/20] acetaminophen 650 mg tablet,extended release 1,300 mg PO QHS tab 04/02/20 [History Confirmed 11/04/20] amlodipine 5 mg tablet 5 mg PO DAILY tab 04/02/20 [History Confirmed 11/04/20] ascorbic acid (vitamin C) 500 mg tablet 500 mg PO DAILY tab 04/02/20 [History Confirmed 11/04/20] budesonide-formoterol HFA 160 mcg-4.5 mcg/actuation aerosol inhaler 2 puff INHALATION BID g 04/02/20 [History Confirmed 11/04/20] cholecalciferol (vitamin D3) 1,250 mcg (50,000 unit) capsule 50,000 unit PO QWEEK cap 04/02/20 [History Confirmed 11/04/20] cyanocobalamin (vitamin B-12) 1,000 mcg tablet 1,000 mcg PO DAILY tab 04/02/20 [History Confirmed 11/04/20] empagliflozin 25 mg tablet 25 mg PO DAILY tab 04/02/20 [History Confirmed 11/04/20] ferrous sulfate 325 mg (65 mg iron) tablet 325 mg PO DAILY 04/02/20 [History Confirmed 11/04/20] fremanezumab-vfrm 225 mg/1.5 mL subcutaneous auto-injector 225 mg SC QMONTH ml 04/02/20 [History Confirmed 11/04/20] hydroxyzine HCl 25 mg tablet 25 mg PO TID PRN tab 04/02/20 [History Confirmed 11/04/20] levothyroxine 200 mcg tablet 200 mcg PO DAILY tab 04/02/20 [History Confirmed 11/04/20] loratadine 10 mg tablet 10 mg PO DAILY tab 04/02/20 [History Confirmed 11/04/20] magnesium oxide 500 mg tablet 500 mg PO DAILY 04/02/20 [History Confirmed 11/04/20] meloxicam 15 mg tablet 15 mg PO DAILY tab 04/02/20 [History Confirmed 11/04/20] omeprazole 40 mg capsule,delayed release 40 mg PO DAILY cap 04/02/20 [History Confirmed 11/04/20] promethazine 25 mg tablet 25 mg PO Q6H PRN tab 04/02/20 [History Confirmed 11/04/20] topiramate 100 mg tablet 100 mg PO DAILY tab 04/02/20 [History Confirmed 11/04/20] ubrogepant 100 mg tablet 100 mg PO ONCE 04/02/20 [History Confirmed 11/04/20] rimegepant 75 mg disintegrating tablet 75 mg PO ONCE tablet 06/19/20 [History Confirmed 11/04/20] Trelegy Ellipta INHALATION 08/14/20 [History Confirmed 11/04/20] rosuvastatin [Crestor] 40 mg PO QHS 08/14/20 [History Confirmed 11/04/20] valsartan 80 mg PO DAILY 08/14/20 [History Confirmed 11/04/20] gabapentin 100 mg capsule 300 mg PO DAILY cap 09/30/20 [History Confirmed 11/04/20] [facility] Medical History Anxiety Asthma Cardiac murmur Celiac disease Chest pain Dyspnea on exertion Gout Hyperlipidemia Hypersomnia Hypertension Hypothyroidism Microcytic anemia Morbid obesity with BMI of 40.0-44.9, adult Surgical History History of carpal tunnel release History of left heart catheterization (10/06/17) history of uterine ablation Family History Father , Age 72 No problems noted. Mother CAD (coronary artery disease) Myocardial infarction, Onset Age: 55 Hypertension Sister CAD (coronary artery disease) Social History Smoking Status: Never smoker alcohol intake: never substance use type: does not use caffeine: No ROS Const Const: Positive for fatigue and weakness; Negative for headache(s), frequent falls, excessive sweating, weight gain or weight loss Eyes Eyes: Negative for blind spots, loss of peripheral vision, transient loss of vision, blurry vision, change in vision or double vision ENT ENT: Negative for headache(s), dizziness, tinnitus, Nosebleed/epistaxis or balance problems Cardio Chest Pain: Yes Palpitations: No Edema: None Muscle aches with walking: None Resp Respiratory: Positive for SOB with activity and SOB at rest; Negative for SOB orthopnea\SOB lying down or Cough GI GI: Negative nausea, vomiting, heartburn, bloating, vomiting blood/hematemesis, bright, red blood in stools or black,tarry stools : Negative for hematuria Musc Musc: Positive for muscle aches/ myalgia; Negative for muscle weakness, joint pain or balance problems Skin Skin: Negative rash or wounds Neuro Neuro: Positive for weakness; Negative for dizziness, lightheadedness, near syncope, syncope, orthostatic symptoms, frequent falls, headache(s), confusion, memory loss, restless legs, blurry vision or double vision Armando Hematologic/Lymphatic: Negative for easy bleeding or easy bruising Endo Endo: Positive for fatigue; Negative for cold intolerance, heat intolerance or excessive sweating Psych Psych: Negative for anxiety or depression Allergy Allergy/Immunology: Negative for rash Cardiology Exam Const Appearance: cooperative, comfortable, no acute distress, well developed, frail appearing and ill appearing Nutritional Appearance: obese Orientation: alert, awake and oriented x3 Head Head: normal to inspection Ears: hearing grossly normal bilaterally Nose: external nose normal Face and Sinus: face symmetric Mouth: oral mucosae normal, lip normal and moist mucous membranes Eyes General: appearance normal, both eyes and all related structures Eyelids: eyelids normal Conjunctivae: conjunctivae normal Pupils: PERRL EOM: EOM intact bilaterally Neck Neck: normal visual inspection and trachea midline; Negative no JVD Carotids: Negative bruit Chest Chest inspection: normal inspection of the chest Auscultation: Bilateral: Diminished Lung Sounds Cardio Palpation: normal PMI Rate: regular rate Rhythm: regular rhythm Heart sounds: S1 normal and S2 normal; Negative rub, gallop or murmur GI GI: soft, no hepatosplenomegaly, bowel sounds present and obese Neuro General: patient alert, patient awake, patient oriented x3 and CN's II-XI intact bilaterally Extremities Pulses: Normal: Right Posterior Tibial Pulse, Left Posterior Tibial Pulse, Right Radial Pulse and Left Radial Pulse Lower Extremity Edema: None: Bilateral Psych Psychological: normal affect Assessment and Plan Assessment and Plan (1) Chest pain: Status: Acute Plan - Shi ARBOLEDA, PA: With patient's abnormal stress test and continued chest discomfort she has a diagnostic heart catheterization scheduled for next week. She does not tolerate aspirin so she will not start this. If she requires stenting we will then start her on an antiplatelet. (2) Hypertension: Status: Chronic Qualifiers: Hypertension type: essential hypertension Qualified Code(s): I10 - Essential (primary) hypertension Plan - Shi ARBOLEDA PA: At this time will not make any adjustments. Blood pressure was initially elevated upon recheck it is better controlled. (3) Hyperlipidemia: Status: Chronic Plan - Shi ARBOLEDA PA: Patient will continue with moderate intensity statin. (4) Dyspnea on exertion: Status: Acute Plan - Shi ARBOLEDA PA: Will be pursuing a diagnostic heart catheterization. Patient also follows with pulmonary. Plan Details Follow Up: 9 Months (PFM- previous DJN) Coding Level of Care Code Off vis,est,level 3 Diagnoses Chest pain R07.9 Hypertension I10 Hypertension type: essential hypertension Hyperlipidemia E78.5 Dyspnea on exertion R06.09 Coding Level of Care Code Off vis,est,level 3 Diagnoses Chest pain R07.9 Hypertension I10 Hypertension type: essential hypertension Hyperlipidemia E78.5 Dyspnea on exertion R06.09 Supplemental Info Supplemental Information Echocardiogram 09/2019: The estimated ejection fraction is 65 %. Stage 1 diastolic dysfunction. Unable to estimate RV systolic pressure due to insufficient tricuspid regurgitant envelope. Compared to echo report dated 08/29/2017, no appreciable changes noted. The study was technically difficult. Contrast injection was performed. Stress Test Report Date: 10-21-2020 Procedure: Pharmacologic stress nuclear imaging study Indications: Chest pain; shortness of breath/dyspnea on exertion Consent: Per the patient Procedure: The patient underwent pharmacologic (Regadenoson 0.4mg ) evaluation with a peak heart rate of 101 beats per minute (59%predicted maximal heart rate) and a peak blood pressure of 140/76 mmHg. The baseline ECG demonstrated sinus bradycardia; nonspecific ST/T wave abnormality. The peak pharmacologic ECG demonstrated continued nonspecific ST/T wave abnormality. There were no cardiac dysrhythmias pretest, during pharmacologic infusion, or recovery. There was no complaint of chest discomfort during pharmacologic infusion or recovery. The examination was discontinued secondary to completion of protocol. Impression: 1. Pharmacologic (Regadenoson) evaluation 2. Peak pharmacologic ECG with continued nonspecific ST/T wave abnormality. 3. There were no cardiac dysrhythmias pretest, during pharmacologic infusion, or recovery. 4. Nuclear images pending Myocardial perfusion imaging study: Technique: The patient was injected with 15.0 millicuries of technetium 99m Cardiolite and subsequently rest SPECT Cardiolite nuclear imaging was obtained in the horizontal long, vertical long, and short axis views. The patient underwent pharmacologic (Regadenoson) evaluation with a peak heart rate of 101 beats per minute (59% percent predicted maximal heart rate) and a peak blood pressure of 140/70 mmHg. The patient was injected with 45.0 millicuries of technetium 99m Cardiolite and subsequently stress SPECT Cardiolite nuclear imaging was obtained in the horizontal long, vertical long, and short axis views. A gated Cardiolite study at peak stress was obtained. Interpretation: Rest and stress SPECT Cardiolite nuclear imaging status post realignment, normalization, and attenuation correction demonstrate the appearance of diminished myocardial perfusion/tracer uptake in portions of the apical segments status post stress. There is end systolic thickening and brightening. The gated Cardiolite study demonstrates myocardial thickening and inward wall motion. The reported LVEF is 68%. Impression: 1. Rest and stress SPECT Cardiolite nuclear imaging demonstrate myocardial perfusion change status post stress in portions of the apical areas potentially compatible with physiologic apical thinning although an area of stress-induced myocardial ischemia cannot necessarily be excluded. 2. The gated Cardiolite study reports an LVEF of 68%. heart cath 09/2017: CORONARY ANGIOGRAPHY DOMINANCE: Right Dominant LEFT HEART ASSESSMENT Left Ventricular Ejection Fraction: by LV Gram 65 % Normal LV wall motion Normal Left Ventricular systolic function Normal Left Ventricular End Diastolic Pressure LEFT MAIN: Angiographically normal LEFT ANTERIOR DECENDING ARTERY: MID LAD: Mild luminal irregularities less than 30% CIRCUMFLEX ARTERY: Angiographically normal RAMUS: Angiographically normal RIGHT CORONARY ARTERY: Angiographically normal Labs: No Data to Display Diagnostics: Electrocardiogram Stress Test NM Stress Test Chest X-Ray Pulmonary: No Data to Display 11/04/20 2415<Electronically signed by Shi ARBOLEDA>Date Shi ARBOLEDA Cosigner Signature:Date (if applicable) CC: CHEMISTRY DEPARTMENT CHAIR-C Casey Lutz ~ [facility] Imaging Services [address] [place] [address] CTA Chest W/WO Contrast MR#: [id number]:[id number]: NELLA LRep #:[id number]: [id number] 50 From: Maksim Ford MDPCP:Casey JAMES Milton Status:REG ERStudy:CTA Chest W/WO Contrast Date of Exam:08/14/20Exam#[id number] Ordering Dr: Candy Arreguin DO ADDENDUM by Dr. Maksim Ford MD on 08/14/20 at 0454 HISTORY: elevated dimer, suspect PE TECHNIQUE: Helically acquired images were obtained of the chest following the intravenous administration of 100 ML of Isovue-370. Iodinated contrast. as per pulmonary angiogram protocol with 2D MIP reconstructions. A radiation dose optimization technique was used for this scan. COMPARISON: Most recent chest x-ray is from one hour earlier. Most recent CT pulmonary angiogram is from October 10, 2019. FINDINGS: # of images incl. paperwork: 1228 Respiratory motion decreases the overall utility of this study. Focal area of nodular consolidation within the left lateral costophrenic measures 6 x 8 mm. Series 2 image 105.. No effusions. Within the thoracic spinebony alignment is normal. Vertebral body height is normal. Facets are well aligned. No rib lesions are perceived. Heart is not enlarged. Thoracic aorta is normal. No aneurysms, stenoses, dissections, nor occlusions. No axillary or mediastinal adenopathy. No pulmonary emboli. The stomach is distended with gas and liquid. The gallbladder remains. The liver may be slightly enlarged. 08/14/20 0454Date cc: CHEMISTRY DEPARTMENT CHAIR-C Casey Lutz; Dr. Candy Arreguin DO ~*Signed ADDENDUM by Dr. Maksim Ford MD on 08/14/[address]/CTA Chest W/WO Contrast IMPRESSION: No pulmonary embolism, aortic aneurysm, or aortic dissection. Within the left lower lobe there is a new area of focal consolidation measuring 6 x 8 mm. This nodule is of unknown etiology. This could represent neoplasia, infection, or focal atelectasis. A PET/CT or biopsy could be considered. Individualized dose optimization techniques were used for this CT. at 0455 Reported and signed by: Maksim Ford MD N.B. : Candy Arreguin DO, confirmed on 08/14/2020 05:11:43 (ET) that the healthcare facility has received the radiology report. Electronically Signed: Maksim Ford MD at 4:54 EDT Tel , Service support , 08/14/20 0518Date cc: JAMES Lutz; Dr. Candy Arreguin DO ~*Signed ACR Level 3 findings have been noted. An addendum which confirms receipt of the report will follow. HISTORY: elevated dimer, suspect PE TECHNIQUE: Helically acquired images were obtained of the chest following the intravenous administration of 100 ML of Isovue-370. Iodinated contrast. as per pulmonary angiogram protocol with 2D MIP reconstructions. A radiation dose optimization technique was used for this scan. COMPARISON: Most recent chest x-ray is from one hour earlier. Most recent CT pulmonary angiogram is from October 10, 2019. FINDINGS: # of images incl. paperwork: [id number] Respiratory motion decreases the overall utility of this study. Focal area of nodular consolidation within the left lateral costophrenic measures 6 x 8 mm. Series 2 image 105.. No effusions. Within the thoracic spinebony alignment is normal. Vertebral body height is normal. Facets are well aligned. No rib lesions are perceived. Heart is not enlarged. Thoracic aorta is normal. No aneurysms, stenoses, dissections, nor occlusions. No axillary or mediastinal adenopathy. No pulmonary emboli. The stomach is distended with gas and liquid. The gallbladder remains. The liver may be slightly enlarged. CT/CTA Chest W/WO Contrast IMPRESSION: No pulmonary embolism, aortic aneurysm, or aortic dissection. Within the left lower lobe there is a new area of focal consolidation measuring 6 x 8 mm. This nodule is of unknown etiology. This could represent neoplasia, infection, or focal atelectasis. A PET/CT or biopsy could be considered. Individualized dose optimization techniques were used for this CT. at 0455 Reported and signed by: Maksim Ford MD Electronically Signed: Maksim Ford MD at 4:54 EDT Tel , Service support , CC: JAMES Luzt; Dr. Candy Arreguin, DO ~Segment Block Layer:Signed Assessment & Plan Addt'l Comments I have re-examined the patient. There are no clinical changes since date of exam.
[2020-11-11 07:55] LABS: Internal QC Validated? YES +Cl - CLEAR BKGD; Pregnancy, Urine Negative Negative
[2020-11-11 09:51] LABS: Blood Gas Specimen Type VEN; VBG BASE EXCESS 0 mmol/L (-1.0-3.5); VBG Bicarbonate 26 mmol/L (22-26); VBG PO2 38 mmHg (25-40); VBG PO2 40 mmHg (25-40); VBG SO2 68 % (50-70); VBG SO2 73 % (50-70); VBG TCO2 27 mmol/L (23-33); VBG pCO2 45.7 mmHg (41-51); VBG pCO2 47.3 mmHg (41-51); VBG pH 7.34 (7.32-7.42); VBG pH 7.36 (7.32-7.42)
[2020-11-11 09:55] LABS: Blood Gas Specimen Type VEN; VBG BASE EXCESS 0 mmol/L (-1.0-3.5); VBG Bicarbonate 26 mmol/L (22-26); VBG PO2 39 mmHg (25-40); VBG SO2 71 % (50-70); VBG TCO2 27 mmol/L (23-33); VBG pCO2 45.9 mmHg (41-51); VBG pH 7.35 (7.32-7.42)
[2020-11-11 09:56] LABS: Base Excess -2 mmol/L (-2 to +2); Bicarbonate 23.4 mmol/L (22-26); Blood Gas Specimen Type ART; PO2 65 mmHG (75-100); SO2 92 % (95-99); Total Carbon Dioxide 25 mmol/L; pCO2 40.9 mmHg (35-45); pH 7.37 (7.35-7.45)
--- NOTE | 2020-11-11 10:52 | CL.D_ITS ---
Patient Name: COURTNEY CARMEN Study Date: 11/11/2020 Performing: Yair Christianson MD Ht: 64.96 inches 165 cm : 1970 Wt: 315.26 lbs 143 kg Age: 50 Gender: female BSA: 2.4 PROCEDURE(S) PERFORMED [id number]-AQA/LHC/COR/LV CLINICAL PROFILE AND INDICATIONS Indications: Suspected CAD Heart Failure: None Stress/Imaging Date: 10/21/2020tress Test with SPECT MPI: Positive Intermediate Risk Angina Classification Anginal Classification w/in 2 Weeks: Anginal Equivalent Dyspnea CAD Presentations: Other: dyspnea on exertion CONCLUSIONS Right heart pressures - Normal Intracardiac shunting: None Elevated Left Ventricular End Diastolic Pressure Normal LV size, wall motion,and systolic function LVEF: by LV gram 55 % Single vessel CAD of the LAD: mild luminal irregularities RECOMMENDATIONS Risk factor modification Medical therapy DESCRIPTION OF PROCEDURE The patient arrived to the procedure lab. The risks and benefits of the procedure as well as a full d escription of our services here and current unavailability of surgical backup were fully explained to the patient and/or their significant other prior to the catheterization. The Timeout was completed, verifying the correct patient and procedure. The patient's procedural site was prepped and draped in the usual fashion. Local anesthetic was given subcutaneously to right radial region with Lidocaine 2% . Local anesthetic was given subcutaneously to right groin region with Lidocaine 2%. Using a modified Seldinger technique, arterial access was obtained via the right radial artery, a 6Fr sheath was inse rted. Venous access was obtained via the right femoral vein, a 7Fr sheath was inserted. A 7Fr thermal dilution catheter was inserted and right heart pressures were recorded, it was then advanced to PA p osition for cardiac outputs. O2 saturations were then obtained. Thermal dilution cardiac outputs were then recorded. Simultaneous pressures were then recorded. Left Ventriculography was perf ormed in HERNANDEZ projection using a 5 Fr. Pigtail catheter. LV to AO pullback pressures were then recorde d. The Thermal dilution catheter was then removed. Left Coronary Artery selective angiography was per formed in multiple views using a 5 Fr. 4.0 Minerva catheter. Right Coronary Artery selective angiograph y was then performed in multiple views using a 5 Fr. 4.0 Minerva catheter.Sheath aspirated and flushed. The arterial sheath was pulled and a TR Band was applied for hemostasis. 10cc of air applied. The ve nous sheath was then pulled and manual compression applied until hemostasis achieved CORONARY ANGIOGRAPHY DOMINANCE: Right Dominant LEFT HEART ASSESSMENT Left Ventricular Ejection Fraction: by LV Gram 55 % Normal LV wall motion Elevated Left Ventricular End Diastolic Pressure LVEDP: 21 mmHg RIGHT HEART ASSESSMENT Thermal CO: 4.4 Thermal CI: 1.83 Chuyita CO: 9.36 Chuyita CI: 3.9 PW: 8 PA: 28/2 17 RV: 29/-1 5 RA: 02/05 9 PVR: 164 SVR: 1891 Right Heart pressures - normal Intracardiac shunting: None LEFT MAIN: Angiographically normal LEFT ANTERIOR DESCENDING ARTERY: MID LAD: Mild luminal irregularities CIRCUMFLEX ARTERY: Angiographically normal RAMUS: Angiographically normal RIGHT CORONARY ARTERY: Angiographically normal AORTIC ROOT: Angiographically normal COMPLICATIONS No Complications PROCEDURE MEDICATIONS Fentanyl 50 mcg IV Versed 1 mg IV Versed 1 mg IV Versed 1 mg IV Fentanyl 50 mcg IV Oxygen: 2 L/min via nasal cannula Heparin given IA 11/11/2020 09:40:04 Verapamil 2.5mg, Ntg 100mcgs, 3000 units of Heparin given IA 11/11/2020 09:40:04 SUMMARY OF HEMODYNAMIC DATA Time AIR REST ECG 08:58:01 RA 02/05 (9) SV 09:45:09 RV 29/-1, 5 09:46:16 PW (8) PV 09:46:43 PA 28/2 (17) PA 09:48:33 LV 142/-8, 23 10:07:01 PW (15) 10:07:01 LV 145/-7, 21 10:07:08 PW (21) 10:07:08 LV 138/-4, 19 10:08:59 PW (19) 10:08:59 LVp 149/-1, 23 10:09:20 AOp 144/95 (116) 10:09:25 PA / (24) 10:10:20 RV 32/8, 14 10:10:39 RA 09/02 (9) 10:10:54 AO 144/86 (113) SA 10:13:03 ECG 10:43:22 Type SV CO (l/m) CI (l/m/ HR Time AIR REST Thermal 53.70 4.40 1.83 82 08:58:01 Chuyita 114.10 9.36 3.90 82 08:58:01 Label % O2 Pres/Loc Time AIR REST IVC 73 SV 09:55:37 SVC 68 09:55:44 AO 92 PV 09:55:53 PA 71 PA 09:55:56 Signed By Yair Christianson MD On 11/11/2020 10:51:13 Yair Christianson MD
== END 2020-11-11 13:20 | disposition home or self-care (01) ==
LOC: CLSP 07:17
PROVIDERS: PCP Nurse Practitioner Family; Visit Provider Internal Medicine Cardiovascular Disease
DX: I25.10 Atherosclerotic heart disease of native coronary artery without angina pectoris (principal); R07.89 Other chest pain; R06.09 Other forms of dyspnea; I10 Essential (primary) hypertension; E78.5 Hyperlipidemia, unspecified; E03.9 Hypothyroidism, unspecified; G47.33 Obstructive sleep apnea (adult) (pediatric); E66.01 Morbid (severe) obesity due to excess calories; Z68.41 Body mass index [BMI] 40.0-44.9, adult; Z79.899 Other long term (current) drug therapy; Z82.49 Family history of ischemic heart disease and other diseases of the circulatory system
CPT/HCPCS: 81025; 82803; 93460; 99152; 99153; J7040; Q9967; C1751; C1769; C1894

== ENCOUNTER → 2020-11-17 15:37 | Outpatient (CLI) | payer MEDICARE, MEDICAID, SELFPAY ==
[2020-11-17 16:26] LABS: Erythrocyte Sedimentation Rate 6 mm/hr (0-30)
[2020-11-17 17:20] LABS: CRP < 2.90 mg/L (0.0-3.0); Phosphorus 2.9 mg/dL (2.5-4.9); T4 Free Direct 0.17 ng/dL (0.76-1.46)
[2020-11-17 17:56] LABS: Thyroid Stim Hormone (TSH) > 500.00 uIU/mL (0.358-3.74)
== END ==
LOC: LAB.FUTURE 15:38 → LAB 11-18 06:58
PROVIDERS: Internal Medicine Endocrinology, Diabetes & Metabolism; PCP Nurse Practitioner Family; Visit Provider Student in an Organized Health Care Education/Training Program
DX: R06.00 Dyspnea, unspecified (principal)
CPT/HCPCS: 84100; 84439; 84443; 85652; 86140

== ENCOUNTER → 2020-12-09 09:05 | Outpatient (CLI) | payer MEDICARE, MEDICAID, SELFPAY ==
[2020-12-09 10:38] LABS: Hematocrit 37.3 % (37-47); Mean Corp Hgb Conc 32.2 g/dL (32-36); Mean Corpuscular Hgb 31.8 pg (27.0-32.0); Mean Corpuscular Volume 98.9 fL (81-99); Mean Platelet Vol. 10.5 fl (6.2-12.0); POSITIVE MORPHOLOGY YES; Platelet Count 409 K/mm3 (150-450); RBC Distribution Width CV 19.1 % (11.6-14.6); RBC Distribution Width SD 70.5 fl (35.1-43.9); Red Blood Count 3.77 M/mm3 (4.2-5.4); White Blood Count 9.9 K/mm3 (4.4-11.0)
[2020-12-09 10:40] LABS: Scan Indicated on CBC? Y/N YES- FLAGS NOTED
[2020-12-09 11:05] LABS: Vitamin B12 376 pg/mL (211-911); Vitamin D,25 Hydroxy 15.9 ng/mL
[2020-12-09 11:08] LABS: Hemoglobin A1c 6.3 % (3.8-5.6)
[2020-12-09 11:15] LABS: ALB/GLOB Ratio 0.7 RATIO (0.9-2.4); AST(SGOT) 57 U/L (15-37); Alanine Aminotransfer ALT/SGPT 72 U/L (13-56); Albumin, Serum 3.3 g/dL (3.2-5.0); Alkaline Phosphatase 88 U/L (45-117); Anion Gap 11 (5-15); BUN 11 mg/dL (7-18); BUN/Creat Ratio 9.4 RATIO (10-20); Calcium,Total 9.4 mg/dL (8.5-10.1); Chloride 108 mmol/L (98-107); Cholesterol 166 mg/dL (200); Creatinine, Serum 1.17 mg/dL (0.55-1.02); EST Glomerular Filtration Rate 52 mL/min (>60); Est Glom Filt Rate - Afr Amer 63 mL/min (>60); Globulin 4.6 g/dL (2.2-4.2); Glucose 130 mg/dL (74-106); High Density Lipoprotein 20 mg/dL; Iron 39 ug/dL (50-170); Iron Binding Capacity,Total 414 ug/dL (250-450); Potassium 3.6 mmol/L (3.5-5.1); Protein, Total 7.9 g/dL (6.4-8.2); Sodium Level 139 mmol/L (136-145); T4 Free Direct 1.53 ng/dL (0.76-1.46); Thyroid Stim Hormone (TSH) 7.08 uIU/mL (0.358-3.74); Triglycerides 149 mg/dL; Uric Acid 7.1 mg/dL (2.6-6.0); Very Low Density Lipoprotein 30 mg/dL (5-40)
== END ==
PROVIDERS: PCP Nurse Practitioner Family; Referring Provider Nurse Practitioner Family; Visit Provider Nurse Practitioner Family
DX: I12.9 Hypertensive chronic kidney disease with stage 1 through stage 4 chronic kidney disease, or unspecified chronic kidney disease (principal); N18.30 Chronic kidney disease, stage 3 unspecified; E11.9 Type 2 diabetes mellitus without complications; D50.9 Iron deficiency anemia, unspecified; E53.8 Deficiency of other specified B group vitamins; E78.00 Pure hypercholesterolemia, unspecified; E03.9 Hypothyroidism, unspecified; E55.9 Vitamin D deficiency, unspecified; M10.9 Gout, unspecified
CPT/HCPCS: 36415; 80053; 80061; 82306; 82607; 83036; 83540; 83550; 84439; 84443; 84550; 85027

== ENCOUNTER → 2020-12-24 15:07 | Outpatient (CLI) | payer MEDICARE, MEDICAID, SELFPAY ==
--- NOTE | 2020-12-24 15:11 | MRI_ITS ---
STUDY: MRI LUMBAR SPINE WITHOUT CONTRAST REASON FOR EXAM: Female, 50 years old. BACK PAIN, LEG PAIN TECHNIQUE: Standardized fat and water weighted pulse sequences were obtained in the sagittal and axial planes. COMPARISON: X-ray dated 07/02/2019 FINDINGS: Examination is degraded by motion artifact. T12-L1: Normal endplates. Normal disc height, hydration and morphology. Normal bilateral facet joints. Normal central canal and bilateral lateral recesses. Normal bilateral intervertebral neural foramina. Normal lumbar lordosis. There is no substantial scoliosis. Normal conus medullaris that terminates at the L1. L1-2: Normal endplates. Normal disc height, hydration and morphology. Normal bilateral facet joints. Normal central canal and bilateral lateral recesses. Normal bilateral intervertebral neural foramina. L2-3: Normal endplates. Normal disc height, hydration and morphology. Normal bilateral facet joints. Normal central canal and bilateral lateral recesses. Normal bilateral intervertebral neural foramina. L3-4: There is mild disc space narrowing and endplates spondylosis. Mild disc bulge and facet arthropathy without significant central canal or foraminal stenosis. L4-5: There is minimal disc space narrowing and endplates spondylosis. Mild disc bulge and facet arthropathy without significant central canal or foraminal stenosis. L5-S1: There is mild disc space narrowing and endplates spondylosis. Mild disc bulge with posterior annular fissure and mild facet arthropathy without significant central canal or foraminal stenosis. Normal visualized sacral ala. MRI/Spine Lumbar (Routine) IMPRESSION: Mild degenerative changes. Electronically Signed: Justen Webb MD at 15:03 EDT Tel , Service support ,
== END ==
PROVIDERS: PCP Nurse Practitioner Family; Visit Provider Anesthesiology Pain Medicine
DX: M47.816 Spondylosis without myelopathy or radiculopathy, lumbar region (principal); M48.061 Spinal stenosis, lumbar region without neurogenic claudication
CPT/HCPCS: 72148

== ENCOUNTER 2021-01-02 15:16 | Emergency (ER) | payer MEDICARE, MEDICAID, SELFPAY ==
[2021-01-02 15:17] VITALS: BP 137/87; PULSE 112; RESP 18; TEMP 37.1; O2SAT 100; BMI 52.2
--- NOTE | 2021-01-02 15:27 | CT_ITS ---
STUDY: CT ABDOMEN AND PELVIS WITHOUT CONTRAST REASON FOR EXAM: Female, 50 years old. Flank pain RADIATION DOSAGE (If Supplied By Facility): CTDIvol = ( 22.71 ) mGy, DLP = ( 1266.38 ) mGycm TECHNIQUE: Transaxial images were obtained from the dome of the diaphragm to the symphysis pubis without oral contrast, and without intravenous contrast. Sagittal and coronal images were reconstructed. Individualized dose optimization techniques were used for this CT. COMPARISON: None. FINDINGS: The visualized lung bases are unremarkable. The visualized portions of the heart are within normal limits. Normal liver. Normal gallbladder and extrahepatic biliary system. Normal spleen. Normal pancreas. Normal bilateral adrenal glands. There are punctate bilateral nonobstructing stones in both kidneys. The right kidney is free of obstructive uropathy. The left kidney shows hydronephrosis and hydroureter. There is a 3 mm stone in the proximal left ureter seen on axial image 65, no significant perinephric or periureteral inflammatory stranding. Normal visualized stomach. Normal small intestine. Normal colon. There is non-visualization of the appendix. There is diffuse atherosclerotic calcification of the abdominal aorta, without a demonstrated aneurysm. Normal inferior vena cava. Normal retroperitoneum. Normal urinary bladder. Normal appearing uterus. No suspicious adnexal mass or free fluid Normal abdominal wall. Normal osseous structures. CT/Abdomen/Pelvis without Cont IMPRESSION: 2 to 3 mm ossification in the proximal left ureter causing left-sided hydronephrosis and hydroureter. Bilateral nonobstructing nephrolithiasis No free intraperitoneal fluid, air, or suspicious adenopathy Electronically Signed: Rafa Rogers MD at 16:36 EDT , Service support ,
--- NOTE | 2021-01-02 15:28 | EX.ED.DYSGE1 ---
HPI History of Present Illness Chief Complaint: Abd Pain Informant: patient Narrative Narrative: 50-year-old female presents the emergency department with lower abdominal pain. Patient states that she has had left lower quadrant abdominal pain which feels like a cramp for the past several days. It got acutely worse at 1130 this morning. States now it seems to radiate into the left flank. She states she thought maybe she would feel better if she had a bowel movement but it did not. She had an episode of emesis. No fever. Only prior abdominal surgery is a . [facility] Medical History Anxiety Asthma Cardiac murmur Celiac disease Chest pain Chronic kidney disease Diabetes Dyspnea on exertion Gout Hyperlipidemia Hypersomnia Hypertension Hypothyroidism Microcytic anemia Morbid obesity with BMI of 40.0-44.9, adult Home Medications albuterol sulfate 2 puff PO Q4H PRN PRN 11/21/15 [History Last Taken 05/20/16] citalopram 40 mg tablet 40 mg PO DAILY 07/27/19 [History Last Taken Unknown] megestrol 40 mg tablet 40 mg PO QHS 09/28/19 [History Last Taken Unknown] acetaminophen 650 mg tablet,extended release 1,300 mg PO QHS tab 04/02/20 [History Last Taken Unknown] amlodipine 5 mg tablet 5 mg PO DAILY tab 04/02/20 [History Last Taken Unknown] ascorbic acid (vitamin C) 500 mg tablet 500 mg PO DAILY tab 04/02/20 [History Last Taken Unknown] budesonide-formoterol HFA 160 mcg-4.5 mcg/actuation aerosol inhaler 2 puff INHALATION BID g 04/02/20 [History Last Taken Unknown] cholecalciferol (vitamin D3) 1,250 mcg (50,000 unit) capsule 50,000 unit PO QWEEK cap 04/02/20 [History Last Taken Unknown] cyanocobalamin (vitamin B-12) 1,000 mcg tablet 1,000 mcg PO DAILY tab 04/02/20 [History Last Taken Unknown] empagliflozin 25 mg tablet 25 mg PO DAILY tab 04/02/20 [History Last Taken Unknown] ferrous sulfate 325 mg (65 mg iron) tablet 325 mg PO DAILY 04/02/20 [History Last Taken Unknown] fremanezumab-vfrm 225 mg/1.5 mL subcutaneous auto-injector 225 mg SC QMONTH ml 04/02/20 [History Last Taken Unknown] hydroxyzine HCl 25 mg tablet 25 mg PO TID PRN tab 04/02/20 [History Last Taken Unknown] loratadine 10 mg tablet 10 mg PO DAILY tab 04/02/20 [History Last Taken Unknown] magnesium oxide 500 mg tablet 500 mg PO DAILY 04/02/20 [History Last Taken Unknown] meloxicam 15 mg tablet 15 mg PO DAILY tab 04/02/20 [History Last Taken Unknown] omeprazole 40 mg capsule,delayed release 40 mg PO DAILY cap 04/02/20 [History Last Taken Unknown] promethazine 25 mg tablet 25 mg PO Q6H PRN tab 04/02/20 [History Last Taken Unknown] topiramate 100 mg tablet 100 mg PO DAILY tab 04/02/20 [History Last Taken Unknown] ubrogepant 100 mg tablet 100 mg PO ONCE 04/02/20 [History Last Taken Unknown] rimegepant 75 mg disintegrating tablet 75 mg PO ONCE tablet 06/19/20 [History Last Taken Unknown] Trelegy Ellipta INHALATION 08/14/20 [History Last Taken Unknown] rosuvastatin [Crestor] 40 mg PO QHS 08/14/20 [History Last Taken Unknown] valsartan 80 mg PO DAILY 08/14/20 [History Last Taken Unknown] gabapentin 100 mg capsule 300 mg PO DAILY cap 09/30/20 [History Last Taken Unknown] levothyroxine 200 mcg tablet 200 mcg PO DAILY #30 tab 12/18/20 [Rx Last Taken Unknown] ondansetron 4 mg PO Q8H PRN PRN #10 tab 01/02/21 [Rx Last Taken Unknown] oxycodone-acetaminophen 1 tab PO Q6H PRN PRN 5 Days #20 tablet 01/02/21 [Rx Last Taken Unknown] Allergy/AdvReac Type Severity Reaction Status Date / Time hydrochlorothiazide AdvReac Intermediate Contributes Verified 01/02/21 15:38 to gout naproxen [From Naprosyn] AdvReac Intermediate Nausea Verified 01/02/21 15:38 aspirin AdvReac Nausea Verified 01/02/21 15:38 Family History Father , Age 72 No problems noted. Mother CAD (coronary artery disease) Myocardial infarction, Onset Age: 55 Hypertension Sister CAD (coronary artery disease) Surgical History History of carpal tunnel release History of left heart catheterization (11/11/20) history of uterine ablation Social History Smoking Status: Never smoker alcohol intake: never substance use type: does not use caffeine: No ROS ROS ED Constitutional Constitutional ED: Denies chills, fever(s) or weight loss Eyes Eyes: Denies change in vision or diplopia ENT ENT ED: Denies ear pain, rhinorrhea or sore throat Cardiovascular Cardiovascular: Denies chest pain, orthopnea, palpitations or racing heartbeat Respiratory/Chest Respiratory/Chest: Denies cough, dyspnea or orthopnea Gastrointestinal Gastrointestinal: Reports abdominal pain, nausea and vomiting; Denies constipation or diarrhea Genitourinary Genitourinary ED: Denies dysuria, hematuria or urinary frequency Musculoskeletal Musculoskeletal: Reports other Details: Left flank pain ; Denies arthralgias or myalgias Integumentary Denies abscess or rash Neurologic Neurologic: Denies headache(s) or weakness Psychiatric Psychiatric: Denies anxiety, depression, suicidal ideation or suicidal thoughts Endocrine Endocrinology: Denies polydipsia, polyphagia or polyuria Allergic/Immunologic Allergic/Immunologic ED: Denies mouth swelling, tongue swelling or urticaria EXAM Physical Exam Const Vital Signs: 01/02/21 15:17 01/02/21 16:52 Temperature 98.7 F Temperature Source Temporal Pulse Rate 112 H 89 Respiratory Rate 18 18 Respiratory Effort Normal Non-Labored Respiratory Pattern Normal Blood Pressure 137/87 H Blood Pressure Mean 103 Pulse Ox 100 97 Oxygen Delivery Method Room Air Positive well nourished, well developed and obese General Appearance ED: well developed Nutritional Appearance: obese HEENT Reports normocephalic, head/scalp atraumatic, TM's clear and moist mucous membranes Negative for trauma Tympanic Membrane ED: Yes TM's clear Eyes PERRL and EOMs intact bilaterally Neck no lymphadenopathy, supple and no JVD Resp normal respiratory effort and clear to auscultation bilaterally Cardio regular rate, regular rhythm and no murmurs GI non-tender GI Narrative: Body habitus precludes a competent abdominal examination Auscultation: normoactive bowel sounds Palpation: soft and tender LLQ Back/Spine no CVA tenderness and normal ROM Lumbar Spine / Lower Back: Negative for lumbar spinal tenderness Extremity normal to inspection General Extremety ED: Negative for edema General Extremity: Negative for edema Neuro oriented x3 and CN's II-XII intact bilaterally Sensorium / Orientation: alert Motor Exam: strength 5/5 throughout Psych mental status grossly normal Mood & Affect: Negative for depressed or tearful Skin no rashes or lesions noted and no wounds MDM MDM MDM Narrative Medical decision making narrative: Patient received IV fluids and Toradol. White count elevated 14.4 blood count 505 hemoglobin 12.2. Creatinine 1.45 test is negative. Urinalysis does not show any overt infection CT of the abdomen pelvis demonstrates a proximal 3 mm ureteral stone with associated hydronephroureter. Patient is resting more comfortably on repeat examination. All right for the patient to have pain and nausea medication. She will be referred to urology return if worsening or concerns Lab Data Attestation: I reviewed the patient's lab results. Labs: Laboratory Results - last 24 hr 01/02/21 01/02/21 01/02/21 15:25 15:25 15:25 WBC 14.4 H RBC 3.98 L Hgb 12.2 Hct 38.9 MCV 97.7 MCH 30.7 MCHC 31.4 L RDW Std Deviation 59.7 H RDW Coeff of Alfredo 16.4 H Plt Count 504 H MPV 9.8 Immature Gran % (Auto) 0.800 Neut % (Auto) 74.1 H Lymph % (Auto) 13.3 L [place] % (Auto) 7.9 Eos % (Auto) 3.3 Baso % (Auto) 0.6 Absolute Neuts (auto) 10.6 H Absolute Lymphs (auto) 1.91 Nucleated RBC % 0 Sodium 141 Potassium 3.6 Chloride 112 H Carbon Dioxide 24.0 Anion Gap 5 BUN 11 Creatinine 1.45 H Estim Creat Clear Calc 41.77 Est GFR (MDRD) Af Amer 49 L Est GFR (MDRD) Non-Af 41 L BUN/Creatinine Ratio 7.6 L Glucose 117 H Calcium 9.6 Total Bilirubin 0.40 AST 50 H ALT 40 Alkaline Phosphatase 91 Total Protein 8.1 Albumin 3.3 Globulin 4.8 H Albumin/Globulin Ratio 0.7 L Serum , Qual NEGATIVE Urine Color Urine Clarity Urine pH Ur Specific [place] Urine Protein Urine Glucose (UA) Urine Ketones Urine Occult Blood Urine Nitrite Urine Bilirubin Urine Urobilinogen Ur Leukocyte Esterase Urine RBC Urine WBC Ur Squamous Epith Cells Amorphous Sediment Urine Bacteria Urine Mucus 01/02/21 16:45 WBC RBC Hgb Hct MCV MCH MCHC RDW Std Deviation RDW Coeff of Alfredo Plt Count MPV Immature Gran % (Auto) Neut % (Auto) Lymph % (Auto) [place] % (Auto) Eos % (Auto) Baso % (Auto) Absolute Neuts (auto) Absolute Lymphs (auto) Nucleated RBC % Sodium Potassium Chloride Carbon Dioxide Anion Gap BUN Creatinine Estim Creat Clear Calc Est GFR (MDRD) Af Amer Est GFR (MDRD) Non-Af BUN/Creatinine Ratio Glucose Calcium Total Bilirubin AST ALT Alkaline Phosphatase Total Protein Albumin Globulin Albumin/Globulin Ratio Serum , Qual Urine Color Yellow Urine Clarity Sl Cloudy Urine pH 6.0 Ur Specific [place] 1.015 Urine Protein Negative Urine Glucose (UA) Normal Urine Ketones Negative Urine Occult Blood 25 H Urine Nitrite Negative Urine Bilirubin Negative Urine Urobilinogen Normal Ur Leukocyte Esterase Negative Urine RBC 0-5 SEEN Urine WBC 0 SEEN Ur Squamous Epith Cells 5-10 SEEN Amorphous Sediment 1+ URATE Urine Bacteria 0 SEEN Urine Mucus 0 SEEN Radiography Diagnostic Testing: Clinical Impression(s) from Imaging Studies Abdomen/Pelvis CT 01/02/21 15:27 IMPRESSION: 2 to 3 mm ossification in the proximal left ureter causing left-sided hydronephrosis and hydroureter. Bilateral nonobstructing nephrolithiasis No free intraperitoneal fluid, air, or suspicious adenopathy Electronically Signed: Rafa Rogers MD at 16:36 EDT , Service support , Discharge Plan Triage Chief Complaint: Abd Pain ED Provider: Nicolás Nieves Dx/Rx/DC Orders Clinical Impression: Ureterolithiasis, Renal colic on left side Instructions: ED Kidney Stone w/ Colic Prescriptions: New oxycodone-acetaminophen [oxycodone-acetaminophen] 1 TABLET tablet 1 tab PO Q6H PRN PRN (Reason: pain) 5 Days Qty: 20 RF: 0 ondansetron [ondansetron] 4 MG tablet 4 mg PO Q8H PRN PRN (Reason: Nausea) Qty: 10 RF: 0 No Action topiramate 100 mg tablet 100 mg PO DAILY RF: 0 omeprazole 40 mg capsule,delayed release(DR/EC) 40 mg PO DAILY RF: 0 promethazine 25 mg tablet 25 mg PO Q6H PRN (Reason: Nausea) RF: 0 Jardiance 25 mg tablet 25 mg PO DAILY RF: 0 magnesium oxide 500 mg tablet 500 mg PO DAILY RF: 0 Ubrelvy 100 mg tablet 100 mg PO ONCE RF: 0 amlodipine 5 mg tablet 5 mg PO DAILY RF: 0 loratadine 10 mg tablet 10 mg PO DAILY RF: 0 cholecalciferol (vitamin D3) 1,250 mcg (50,000 unit) capsule 50,000 unit PO QWEEK RF: 0 meloxicam 15 mg tablet 15 mg PO DAILY RF: 0 cyanocobalamin (vitamin B-12) 1,000 mcg tablet 1,000 mcg PO DAILY RF: 0 acetaminophen 650 mg tablet extended release 1,300 mg PO QHS RF: 0 ascorbic acid (vitamin C) 500 mg tablet 500 mg PO DAILY RF: 0 ferrous sulfate 325 mg (65 mg iron) tablet 325 mg PO DAILY RF: 0 budesonide-formoterol [Symbicort] 160-4.5 mcg/actuation HFA aerosol inhaler 2 puff INHALATION BID RF: 0 Ajovy Autoinjector 225 mg/1.5 mL auto-injector 225 mg SC QMONTH RF: 0 rimegepant 75 mg tablet,disintegrating 75 mg PO ONCE RF: 0 gabapentin 100 mg capsule 300 mg PO DAILY RF: 0 levothyroxine 200 mcg tablet 200 mcg PO DAILY Qty: 30 RF: 6 albuterol sulfate 1 PUFF inhaler 2 puff PO Q4H PRN PRN (Reason: Shortness Of Breath) RF: 0 megestrol 40 mg tablet 40 mg PO QHS RF: 0 valsartan 80 mg tablet 80 mg PO DAILY RF: 0 rosuvastatin [Crestor] 40 mg tablet 40 mg PO QHS RF: 0 Trelegy Ellipta 100-62.5-25 mcg blister with device INHALATION RF: 0 citalopram 40 mg tablet 40 mg PO DAILY RF: 0 hydroxyzine HCl 25 mg tablet 25 mg PO TID PRN (Reason: Anxiety) RF: 0 Primary Care Provider: Casey Lutz NP Referrals: Britt Robles MD [STAFF PHYSICIAN] - As soon as possible Casey Lutz NP, [employer] [Primary Care Provider] - Disposition Disposition: Home, Self Care
[2021-01-02] MEDS: Ketorolac 30 MG/ML Syringe IV (15:37)
[2021-01-02] MEDS: Ondansetron 4 MG/2 ML Vial IV (15:37)
[2021-01-02] MEDS: 0.9% Normal Saline 1,000 ML 250 ML IV (15:38)
[2021-01-02 15:45] LABS: Absolute Lymphocyte Count 1.91 X10^3/uL (0.83-4.51); Absolute Neutrophil Count 10.6 X10^3/uL (2.0-7.7); Basophil# 0.09 X10^3/uL; Basophil% 0.6 % (0-1); Eosinophil# 0.48 X10^3/uL; Eosinophils% 3.3 % (0-5); Hematocrit 38.9 % (37-47); Hemoglobin 12.2 g/dL (12.0-15.0); Lymphocyte # 1.91 X10^3/ul (0.83-4.51); Lymphocyte % 13.3 % (19-41); Mean Corp Hgb Conc 31.4 g/dL (32-36); Mean Corpuscular Hgb 30.7 pg (27.0-32.0); Mean Corpuscular Volume 97.7 fL (81-99); Mean Platelet Vol. 9.8 fl (6.2-12.0); Monocyte# 1.13 X10^3/uL; Monocyte% 7.9 % (0-10); NRBC Flagged by Analyzer 0 % (0-5); Neutrophil # 10.63 X10^3/uL (2.7-7.7); Neutrophil % 74.1 % (47-70); Platelet Count 504 K/mm3 (150-450); RBC Distribution Width CV 16.4 % (11.6-14.6); RBC Distribution Width SD 59.7 fl (35.1-43.9); Red Blood Count 3.98 M/mm3 (4.2-5.4); White Blood Count 14.4 K/mm3 (4.4-11.0)
[2021-01-02 15:54] LABS: Internal QC Validated? YES +Cl - CLEAR BKGD; Pregnancy, Serum, hCG Quali. NEGATIVE Negative
[2021-01-02 15:55] LABS: ALB/GLOB Ratio 0.7 RATIO (0.9-2.4); AST(SGOT) 50 U/L (15-37); Alanine Aminotransfer ALT/SGPT 40 U/L (13-56); Albumin, Serum 3.3 g/dL (3.2-5.0); Alkaline Phosphatase 91 U/L (45-117); Anion Gap 5 (5-15); BUN 11 mg/dL (7-18); BUN/Creat Ratio 7.6 RATIO (10-20); Calcium,Total 9.6 mg/dL (8.5-10.1); Chloride 112 mmol/L (98-107); Creatinine, Serum 1.45 mg/dL (0.55-1.02); EST Glomerular Filtration Rate 41 mL/min (>60); Est Glom Filt Rate - Afr Amer 49 mL/min (>60); Estimated Creatinine Clearance 41.77 ml/min; Globulin 4.8 g/dL (2.2-4.2); Glucose 117 mg/dL (74-106); Potassium 3.6 mmol/L (3.5-5.1); Protein, Total 8.1 g/dL (6.4-8.2); Sodium Level 141 mmol/L (136-145)
[2021-01-02 16:52] VITALS: PULSE 89; RESP 18; O2SAT 97
[2021-01-02 16:53] LABS: Bacteria 0 SEEN /hpf (None Seen); Mucous, Urine 0 SEEN /hpf (<or=2+); White Blood Cells 0 SEEN /hpf (0-5)
[2021-01-02 16:55] LABS: Glucose, Dipstick Normal (Normal); Ketone-Dipstick Negative (Negative); Leukocyte Esterase-Dipstick Negative /ul (Negative); Nitrite-Dipstick Negative (Negative); Occult Blood-Urine 25 /ul (Negative); Protein-Dipstick Negative (Negative); Specific Gravity, Urine 1.015 (1.002-1.030); Urine Bilirubin Dipstick Negative (Negative); Urine Urobilinogen Normal (Normal)
[2021-01-02 16:57] LABS: Color, Urine Yellow (Yellow); Urine Clarity Sl Cloudy (Clear)
[2021-01-02 17:15] LABS: Amorphous Sediment 1+ URATE; Red Blood Cells-Urine 0-5 SEEN /hpf (0-5); Squamous Epithelial Cells - UA 5-10 SEEN /hpf (5-10)
[2021-01-02] MEDS: Ketorolac 15 MG/ML Vial IV (17:24)
[2021-01-02 17:27] VITALS: BP 135/82; PULSE 88; RESP 16; O2SAT 96
== END 2021-01-02 17:45 | disposition home or self-care (01) ==
PROVIDERS: Emergency Provider Emergency Medicine; PCP Nurse Practitioner Family
DX: N13.2 Hydronephrosis with renal and ureteral calculous obstruction (principal); I12.9 Hypertensive chronic kidney disease with stage 1 through stage 4 chronic kidney disease, or unspecified chronic kidney disease; E11.22 Type 2 diabetes mellitus with diabetic chronic kidney disease; N18.9 Chronic kidney disease, unspecified; D50.9 Iron deficiency anemia, unspecified; E03.9 Hypothyroidism, unspecified; E78.5 Hyperlipidemia, unspecified; J45.909 Unspecified asthma, uncomplicated; M10.9 Gout, unspecified; F41.9 Anxiety disorder, unspecified; E66.01 Morbid (severe) obesity due to excess calories; Z68.41 Body mass index [BMI] 40.0-44.9, adult; Z79.84 Long term (current) use of oral hypoglycemic drugs; Z79.899 Other long term (current) drug therapy
CPT/HCPCS: 74176; 80053; 81001; 84703; 85025; 96361; 96374; 96375; 96376; 99285; J2405

== ENCOUNTER 2021-01-06 11:49 | Day surgery (SDC) | payer MEDICARE, MEDICAID, SELFPAY ==
[2021-01-06] MEDS: Lactated Ringers 1,000 ML 15 ML IV ×2 (12:25→16:43)
[2021-01-06 13:15] VITALS: BP 133/91; PULSE 100; RESP 16; TEMP 36.6; O2SAT 98; BMI 51.7
[2021-01-06 16:20] LABS: Bedside Glucose 148 mg/dL (70-110)
--- NOTE | 2021-01-06 18:58 | PCM.DC ---
Discharge Instructions Diet Discharge Diet: No restrictions Activity Discharge Activity: Return to Normal Activity May resume sexual activity in: No Restrictions Dressing / Incision Call your doctor if you observe: Fever of 101 or Higher, Inability to urinate, Inability to have a bowel movement and Uncontrolled pain Follow Up Care Please Follow Up With: Britt Robles MD When: 1 week in the office Test Results: Test results from this visit will be discussed in further detail at your follow-up appointment, if applicable. Discharge Plan Admission Attending Provider: Britt Robles Primary Care Provider: Casey Lutz [employer]AGE [employer]TER Discharge Orders/Prescriptions Prescriptions: New phenazopyridine [Pyridium] 200 MG tablet 200 mg PO TID PRN PRN (Reason: Bladder Spasms) 7 Days Qty: 30 RF: 0 oxycodone-acetaminophen [oxycodone-acetaminophen] 1 TABLET tablet 2 tab PO Q8H PRN PRN (Reason: Pain) 7 Days Qty: 20 RF: 0 cephalexin [cephalexin] 500 MG capsule 500 mg PO TID 3 Days Qty: 9 RF: 0 Continued topiramate 100 mg tablet 100 mg PO DAILY RF: 0 omeprazole 40 mg capsule,delayed release(DR/EC) 40 mg PO DAILY RF: 0 promethazine 25 mg tablet 25 mg PO Q6H PRN (Reason: Nausea) RF: 0 Jardiance 25 mg tablet 25 mg PO DAILY RF: 0 magnesium oxide 500 mg tablet 500 mg PO DAILY RF: 0 Ubrelvy 100 mg tablet 100 mg PO ONCE RF: 0 amlodipine 5 mg tablet 5 mg PO DAILY RF: 0 loratadine 10 mg tablet 10 mg PO DAILY RF: 0 cholecalciferol (vitamin D3) 1,250 mcg (50,000 unit) capsule 50,000 unit PO QWEEK RF: 0 meloxicam 15 mg tablet 15 mg PO DAILY RF: 0 cyanocobalamin (vitamin B-12) 1,000 mcg tablet 1,000 mcg PO DAILY RF: 0 acetaminophen 650 mg tablet extended release 1,300 mg PO QHS RF: 0 ascorbic acid (vitamin C) 500 mg tablet 500 mg PO DAILY RF: 0 ferrous sulfate 325 mg (65 mg iron) tablet 325 mg PO DAILY RF: 0 budesonide-formoterol [Symbicort] 160-4.5 mcg/actuation HFA aerosol inhaler 2 puff INHALATION BID RF: 0 Ajovy Autoinjector 225 mg/1.5 mL auto-injector 225 mg SC QMONTH RF: 0 rimegepant 75 mg tablet,disintegrating 75 mg PO ONCE RF: 0 gabapentin 100 mg capsule 300 mg PO DAILY RF: 0 levothyroxine 200 mcg tablet 200 mcg PO DAILY Qty: 30 RF: 6 albuterol sulfate 1 PUFF inhaler 2 puff PO Q4H PRN PRN (Reason: Shortness Of Breath) RF: 0 megestrol 40 mg tablet 40 mg PO QHS RF: 0 valsartan 80 mg tablet 80 mg PO DAILY RF: 0 rosuvastatin [Crestor] 40 mg tablet 40 mg PO QHS RF: 0 Trelegy Ellipta 100-62.5-25 mcg blister with device 1 ea INHALATION RF: 0 oxycodone-acetaminophen 1 TABLET tablet 1 tab PO Q6H PRN PRN (Reason: pain) 5 Days Qty: 20 RF: 0 ondansetron 4 MG tablet 4 mg PO Q8H PRN PRN (Reason: Nausea) Qty: 10 RF: 0 citalopram 40 mg tablet 40 mg PO DAILY RF: 0 hydroxyzine HCl 25 mg tablet 25 mg PO TID PRN (Reason: Anxiety) RF: 0 Referrals / Follow Up: Casey Lutz [employer]AGE [employer]TER, [employer] [Primary Care Provider] - Disposition Disposition (needs filled in before D/C Order can be placed): Home, Self Care
--- NOTE | 2021-01-06 19:04 | OP.PCM_ITS ---
Problems Associated Problem List Diagnoses (1) Ureterolithiasis: (2) Hydronephrosis: Report of Operation Date of Procedure: 01/06/21 Pre-Operative Diagnosis: Left ureteral calculus and hydronephrosis Post-Operative Diagnosis: Same Surgery/Procedure Performed:: Cystoscopy, left retrograde pyelogram, left ureteroscopy, holmium laser lithotripsy, stone basket extraction and left ureteral stent insertion Surgeon: Britt Robles Type of Anesthesia: General Specimen's removed: Left ureteral stone fragments Description of Procedure: The patient is a 50-year-old female who was found to have a proximal left ureteral calculus in the emergency room approximately 4 days ago. She was seen in the office today for follow-up. She was miserable with nausea, vomiting and uncontrolled pain. We discussed the options, risks, benefits and decided to proceed with surgical intervention. Informed consent was obtained. The patient was taken to the operating room and placed on the operating room table. Anesthesia monitored the head, neck, airway, IV access and vital signs throughout the case. Once anesthesia was appropriately administered the patient was placed into dorsal lithotomy position and was prepped and draped in usual sterile fashion. The cystoscope was inserted through the urethra under direct visualization into the urinary bladder. The bladder mucosa was visualized in its entirety and found to be without any evidence of mass, erythema, ulceration or foreign body. The left ureteral orifice was carefully intubated with an 8 [place] cone-tip catheter and contrast was injected in retrograde fashion under fluoroscopic visualization. There is a question of a distal ureteral stone as well as a question of a narrowing and a stone proximally. At this time a 0.035 Glidewire was inserted and curled into the renal pelvis. A second Glidewire was then passed. An attempt was performed flexible ureteroscopy, access was obtained to the distal left ureter and a stone was seen but the ureteroscope kept falling out of the ureter. At this point a SlimLine semirigid ureteroscope was used to cannulate the distal left ureter. The stone was identified and lasered into small fragments which were then stone basket removed. At this point the cystoscope was used to place a 6 [place] Islander 24 cm double-J stent with good curling in the renal pelvis as well as the urinary bladder. At the proximal end of the ureter there was narrowing and difficulty with insertion of the stent but it did go without evidence of injury and curled in the correct location. At this time the patient's bladder was emptied and the case was terminated. She was awakened and taken to the recovery room in good condition. There were no complications during this procedure. Grafts/Implants Used: 6x24 JJ stent Complications none Admit VTE Documentation VTE Present on Admission: Yes VTE Mechan Device Prophylaxis: SCD's VTE Pharm Prophylaxis ordered?: No Reason prophylaxis not ordered:: Treatment Not Indicated
[2021-01-06 19:18] VITALS: BP 133/91; BP 142/96; PULSE 92; RESP 16; TEMP 36.2; O2SAT 98
[2021-01-06 19:30] VITALS: BP 133/91; BP 143/96; PULSE 92; RESP 16; O2SAT 94
[2021-01-06 19:51] VITALS: BP 133/91; BP 164/89; PULSE 92; RESP 16; O2SAT 94
[2021-01-06 20:07] VITALS: BP 133/91; BP 155/86; PULSE 92; RESP 16; TEMP 36.3; O2SAT 97
[2021-01-06 20:45] LABS: Bedside Glucose 114 mg/dL (70-110)
[2021-01-06 21:12] VITALS: BP 133/91; BP 152/92; PULSE 101; RESP 20; TEMP 36.6; O2SAT 97
[2021-01-13 13:35] LABS: Source LEFT URETER
== END 2021-01-06 21:18 | disposition home or self-care (01) ==
LOC: SDC 11:52 → AC 11:55
PROVIDERS: PCP Nurse Practitioner Family; Visit Provider Urology
PROC: 0TJ98ZZ Inspection of Ureter, Via Natural or Artificial Opening Endoscopic (ICD-10-PCS; CPT 52352; principal; 2021-01-06 18:45)
DX: N13.2 Hydronephrosis with renal and ureteral calculous obstruction (principal); N32.89 Other specified disorders of bladder; I12.9 Hypertensive chronic kidney disease with stage 1 through stage 4 chronic kidney disease, or unspecified chronic kidney disease; N18.9 Chronic kidney disease, unspecified; E11.9 Type 2 diabetes mellitus without complications; E78.5 Hyperlipidemia, unspecified; E03.9 Hypothyroidism, unspecified; J44.9 Chronic obstructive pulmonary disease, unspecified; D64.9 Anemia, unspecified; K21.9 Gastro-esophageal reflux disease without esophagitis; F32.A Depression, unspecified; F41.9 Anxiety disorder, unspecified; G43.909 Migraine, unspecified, not intractable, without status migrainosus; E66.01 Morbid (severe) obesity due to excess calories; Z68.41 Body mass index [BMI] 40.0-44.9, adult; Z20.822 Contact with and (suspected) exposure to COVID-19; Z79.84 Long term (current) use of oral hypoglycemic drugs; Z79.899 Other long term (current) drug therapy
CPT/HCPCS: 52356; 76000; 82360; 82962; 87426; J7120; C2617; J2405

== ENCOUNTER 2021-01-10 18:25 | Emergency (ER) | payer MEDICARE, MEDICAID, SELFPAY ==
[2021-01-10 18:26] VITALS: BP 164/63; PULSE 117; RESP 20; TEMP 36.5; O2SAT 98; BMI 53.2
--- NOTE | 2021-01-10 18:41 | EDS_ITS ---
HPI History of Present Illness Chief Complaint: Abd Pain Informant: patient Onset/Context/Timing Onset: Days Current Severity: Moderate Maximum Severity: Moderate Narrative Narrative: Patient presents secondary to abdominal pain, constipation, anxiety. Patient was seen in the ER on January 02 and diagnosed with a 3 mm left-sided kidney stone. On January 06 she had a stent placed. It appears that one stent was placed the stone was lasered and removed with basket retrieval. She is currently on Keflex, Percocet, and Pyridium. Patient presents today with anxiet y and stating that she needs some medicine for anxiety. She is also complaining of continued pain and constipation. She states she is able to urinate without difficulty. She has had no fever. [facility] Medical History Anemia Anxiety Asthma Cardiac murmur Celiac disease Chest pain Chronic kidney disease COPD (chronic obstructive pulmonary disease) Depression Diabetes Dyspnea on exertion Gastric reflux Gout Hydronephrosis Hyperlipidemia Hypersomnia Hypertension Hypothyroidism Microcytic anemia Migraine headache Morbid obesity with BMI of 40.0-44.9, adult Rash Home Medications albuterol sulfate 2 puff PO Q4H PRN PRN 11/21/15 [History Last Taken 01/05/21] citalopram 40 mg tablet 40 mg PO DAILY 07/27/19 [History Last Taken 01/05/21] megestrol 40 mg tablet 40 mg PO QHS 09/28/19 [History Last Taken 01/05/21] acetaminophen 650 mg tablet,extended release 1,300 mg PO QHS tab 04/02/20 [History Last Taken 01/05/21] amlodipine 5 mg tablet 5 mg PO DAILY tab 04/02/20 [History Last Taken 01/05/21] ascorbic acid (vitamin C) 500 mg tablet 500 mg PO DAILY tab 04/02/20 [History Last Taken 01/05/21] budesonide-formoterol HFA 160 mcg-4.5 mcg/actuation aerosol inhaler 2 puff INHALATION BID g 04/02/20 [History Last Taken 01/05/21] cholecalciferol (vitamin D3) 1,250 mcg (50,000 unit) capsule 50,000 unit PO QWEEK cap 04/02/20 [History Last Taken 01/05/21] cyanocobalamin (vitamin B-12) 1,000 mcg tablet 1,000 mcg PO DAILY tab 04/02/20 [History Last Taken 01/05/21] empagliflozin 25 mg tablet 25 mg PO DAILY tab 04/02/20 [History Last Taken 01/05/21] ferrous sulfate 325 mg (65 mg iron) tablet 325 mg PO DAILY 04/02/20 [History Last Taken 01/05/21] fremanezumab-vfrm 225 mg/1.5 mL subcutaneous auto-injector 225 mg SC QMONTH ml 04/02/20 [History Last Taken 01/05/21] hydroxyzine HCl 25 mg tablet 25 mg PO TID PRN tab 04/02/20 [History Last Taken 01/05/21] loratadine 10 mg tablet 10 mg PO DAILY tab 04/02/20 [History Last Taken 01/05/21] magnesium oxide 500 mg tablet 500 mg PO DAILY 04/02/20 [History Last Taken 01/05/21] meloxicam 15 mg tablet 15 mg PO DAILY tab 04/02/20 [History Last Taken 01/05/21] omeprazole 40 mg capsule,delayed release 40 mg PO DAILY cap 04/02/20 [History Last Taken 01/05/21] promethazine 25 mg tablet 25 mg PO Q6H PRN tab 04/02/20 [History Last Taken 01/05/21] topiramate 100 mg tablet 100 mg PO DAILY tab 04/02/20 [History Last Taken 01/05/21] ubrogepant 100 mg tablet 100 mg PO ONCE 04/02/20 [History Last Taken 01/05/21] rimegepant 75 mg disintegrating tablet 75 mg PO ONCE tablet 06/19/20 [History Last Taken 01/05/21] Trelegy Ellipta 1 ea INHALATION 08/14/20 [History Last Taken 01/05/21] rosuvastatin [Crestor] 40 mg PO QHS 08/14/20 [History Last Taken 01/05/21] valsartan 80 mg PO DAILY 08/14/20 [History Last Taken 01/05/21] gabapentin 100 mg capsule 300 mg PO DAILY cap 09/30/20 [History Last Taken 01/05/21] levothyroxine 200 mcg tablet 200 mcg PO DAILY #30 tab 12/18/20 [Rx Last Taken 01/05/21] ondansetron 4 mg PO Q8H PRN PRN #10 tab 01/02/21 [Rx Last Taken 01/05/21] oxycodone-acetaminophen 1 tab PO Q6H PRN PRN 5 Days #20 tablet 01/02/21 [Rx Last Taken 01/05/21] cephalexin 500 mg PO TID 3 Days #9 capsule 01/06/21 [Rx Last Taken Unknown] oxycodone-acetaminophen 2 tab PO Q8H PRN PRN 7 Days #20 tab 01/06/21 [Rx Last Taken Unknown] phenazopyridine [Pyridium] 200 mg PO TID PRN PRN 7 Days #30 tab 01/06/21 [Rx Last Taken Unknown] ketorolac 10 mg PO Q6H PRN 3 Days tab 01/10/21 [Rx Last Taken Unknown] Allergy/AdvReac Type Severity Reaction Status Date / Time hydrochlorothiazide AdvReac Intermediate Contributes Verified 01/10/21 18:25 to gout naproxen [From Naprosyn] AdvReac Intermediate Nausea Verified 01/10/21 18:25 aspirin AdvReac Nausea Verified 01/10/21 18:25 Family History Father , Age 72 No problems noted. Mother CAD (coronary artery disease) Myocardial infarction, Onset Age: 55 Hypertension Sister CAD (coronary artery disease) Surgical History History of carpal tunnel release History of left heart catheterization (11/11/20) history of uterine ablation Social History Smoking Status: Never smoker alcohol intake: never substance use type: does not use caffeine: No ROS ROS ED Constitutional Constitutional ED: Denies chills or fever(s) Eyes Eyes: Denies change in vision ENT ENT ED: Denies sore throat Cardiovascular Cardiovascular: Denies chest pain Respiratory/Chest Respiratory/Chest: Reports dyspnea; Denies cough Gastrointestinal Gastrointestinal: Reports abdominal pain and constipation; Denies diarrhea, nausea or vomiting Genitourinary Genitourinary ED: Denies dysuria Musculoskeletal Musculoskeletal: Denies back pain Integumentary Denies rash Neurologic Neurologic: Denies headache(s) or weakness Psychiatric Psychiatric: Reports anxiety; Denies depression Allergic/Immunologic Allergic/Immunologic ED: Denies urticaria EXAM Physical Exam Const Vital Signs: 01/10/21 18:26 Temperature 97.7 F L Temperature Source Temporal Pulse Rate 117 H Respiratory Rate 20 H Blood Pressure 164/63 H Blood Pressure Mean 96 Pulse Ox 98 Oxygen Delivery Method Room Air Positive obese Nutritional Appearance: obese HEENT Reports moist mucous membranes Eyes PERRL and EOMs intact bilaterally Neck supple Chest Wall inspection of chest normal and palpation of chest normal Resp normal respiratory effort and clear to auscultation bilaterally Cardio regular rate and regular rhythm GI non-tender Auscultation: hypoactive bowel sounds Palpation: soft Extremity normal to inspection Neuro oriented x3 Sensorium / Orientation: alert Psych Mood & Affect: anxious Skin no rashes or lesions noted MDM MDM MDM Narrative Medical decision making narrative: KUB ordered. BMP ordered to check renal function. Patient given Toradol and a small dose of Ativan. Lab Data Attestation: I reviewed the patient's lab results. Labs: Laboratory Results - last 24 hr 01/10/21 18:55 Sodium 139 Potassium 3.4 L Chloride 108 H Carbon Dioxide 20.0 L Anion Gap 11 BUN 10 Creatinine 1.21 H Estim Creat Clear Calc 50.05 Est GFR (MDRD) Af Amer 61 Est GFR (MDRD) Non-Af 50 L BUN/Creatinine Ratio 8.3 L Glucose 166 H Calcium 9.5 Radiography Diagnostic Testing: Clinical Impression(s) from Imaging Studies KUB X-Ray 01/10/21 19:15 IMPRESSION: Left renal stent. Nonobstructive bowel gas pattern. Electronically Signed: Eulalio Holt MD ([place]) at 19:42 EST , Service support , Treatment and Re-Evaluation Comments:: Blood work unremarkable. Abdominal x-ray reveals nonspecific bowel gas pattern. Stool that I do see is on the right. I do not believe an enema will be beneficial she does not have stool down lower in the sigmoid. On repeat evaluation patient is sleeping comfortably and easily awakens. Although she has an allergy listed to naproxen and aspirin she has tolerated Toradol here without difficulty. I will write her for Toradol tabs at home to help with ureteral spasm. We will also send her home with a bottle of magnesium citrate to help clean her out. Discharge Plan Triage Chief Complaint: Abd Pain ED Provider: Nannette Stahl Dx/Rx/DC Orders Clinical Impression: Flank pain, Constipation Instructions: Having a Ureteral Stent, ED Constipation (Adult) Prescriptions: New ketorolac 10 mg tablet 10 mg PO Q6H PRN (Reason: pain) 3 Days RF: 0 No Action topiramate 100 mg tablet 100 mg PO DAILY RF: 0 omeprazole 40 mg capsule,delayed release(DR/EC) 40 mg PO DAILY RF: 0 promethazine 25 mg tablet 25 mg PO Q6H PRN (Reason: Nausea) RF: 0 Jardiance 25 mg tablet 25 mg PO DAILY RF: 0 magnesium oxide 500 mg tablet 500 mg PO DAILY RF: 0 Ubrelvy 100 mg tablet 100 mg PO ONCE RF: 0 amlodipine 5 mg tablet 5 mg PO DAILY RF: 0 loratadine 10 mg tablet 10 mg PO DAILY RF: 0 cholecalciferol (vitamin D3) 1,250 mcg (50,000 unit) capsule 50,000 unit PO QWEEK RF: 0 meloxicam 15 mg tablet 15 mg PO DAILY RF: 0 cyanocobalamin (vitamin B-12) 1,000 mcg tablet 1,000 mcg PO DAILY RF: 0 acetaminophen 650 mg tablet extended release 1,300 mg PO QHS RF: 0 ascorbic acid (vitamin C) 500 mg tablet 500 mg PO DAILY RF: 0 ferrous sulfate 325 mg (65 mg iron) tablet 325 mg PO DAILY RF: 0 budesonide-formoterol [Symbicort] 160-4.5 mcg/actuation HFA aerosol inhaler 2 puff INHALATION BID RF: 0 Ajovy Autoinjector 225 mg/1.5 mL auto-injector 225 mg SC QMONTH RF: 0 rimegepant 75 mg tablet,disintegrating 75 mg PO ONCE RF: 0 gabapentin 100 mg capsule 300 mg PO DAILY RF: 0 levothyroxine 200 mcg tablet 200 mcg PO DAILY Qty: 30 RF: 6 albuterol sulfate 1 PUFF inhaler 2 puff PO Q4H PRN PRN (Reason: Shortness Of Breath) RF: 0 megestrol 40 mg tablet 40 mg PO QHS RF: 0 valsartan 80 mg tablet 80 mg PO DAILY RF: 0 rosuvastatin [Crestor] 40 mg tablet 40 mg PO QHS RF: 0 Trelegy Ellipta 100-62.5-25 mcg blister with device 1 ea INHALATION RF: 0 oxycodone-acetaminophen 1 TABLET tablet 1 tab PO Q6H PRN PRN (Reason: pain) 5 Days Qty: 20 RF: 0 ondansetron 4 MG tablet 4 mg PO Q8H PRN PRN (Reason: Nausea) Qty: 10 RF: 0 phenazopyridine [Pyridium] 200 MG tablet 200 mg PO TID PRN PRN (Reason: Bladder Spasms) 7 Days Qty: 30 RF: 0 oxycodone-acetaminophen [oxycodone-acetaminophen] 1 TABLET tablet 2 tab PO Q8H PRN PRN (Reason: Pain) 7 Days Qty: 20 RF: 0 cephalexin [cephalexin] 500 MG capsule 500 mg PO TID 3 Days Qty: 9 RF: 0 citalopram 40 mg tablet 40 mg PO DAILY RF: 0 hydroxyzine HCl 25 mg tablet 25 mg PO TID PRN (Reason: Anxiety) RF: 0 Primary Care Provider: Casey Luzt NP Referrals: Britt Robles MD [STAFF PHYSICIAN] - [facility] [place] appointment Casey Lutz NP, [employer] [Primary Care Provider] - Activity Restrictions/Additional Instructions: For the next 3 days, take Toradol to help with his pain. Please do not take Mobic while taking Toradol. Magnesium citrate: Drink half the bottle. If no significant bowel movement 3 to 4 hours drink the other half the bottle. Disposition Disposition: Home, Self Care
[2021-01-10] MEDS: Ketorolac 30 MG/ML Syringe IV (19:01)
[2021-01-10] MEDS: LORazepam 2 MG/ML Syringe 0.5 MG IV (19:01)
--- NOTE | 2021-01-10 19:15 | RAD_ITS ---
STUDY: X-RAY - ABDOMEN/PELVIS REASON FOR EXAM: Female, 50 years old. pain, constipation -- recent ureteral stent TECHNIQUE: Single AP view of the abdomen / pelvis. COMPARISON: None. FINDINGS: Normal visualized lung bases. There is an unremarkable bowel gas pattern. There is no demonstrated free abdominal air. The visualized liver, spleen and kidneys are grossly normal in size and morphology. Left ureter stent extends from the left renal shadow to the midline lower pelvis. Normal soft tissue structures. Normal visualized osseous structures. RAD/Abdomen Single View IMPRESSION: Left renal stent. Nonobstructive bowel gas pattern. Electronically Signed: Eulalio Holt MD ([place]) at 19:42 EST , Service support ,
[2021-01-10 19:20] LABS: Anion Gap 11 (5-15); BUN 10 mg/dL (7-18); BUN/Creat Ratio 8.3 RATIO (10-20); Calcium,Total 9.5 mg/dL (8.5-10.1); Chloride 108 mmol/L (98-107); Creatinine, Serum 1.21 mg/dL (0.55-1.02); EST Glomerular Filtration Rate 50 mL/min (>60); Est Glom Filt Rate - Afr Amer 61 mL/min (>60); Estimated Creatinine Clearance 50.05 ml/min; Glucose 166 mg/dL (74-106); Potassium 3.4 mmol/L (3.5-5.1); Sodium Level 139 mmol/L (136-145)
[2021-01-10] MEDS: Magnesium Citrate 300 ML PO (20:07)
[2021-01-10 20:12] VITALS: BP 134/112; PULSE 81
== END 2021-01-10 20:18 | disposition home or self-care (01) ==
PROVIDERS: Emergency Provider Emergency Medicine; PCP Nurse Practitioner Family
DX: K59.00 Constipation, unspecified (principal); I12.9 Hypertensive chronic kidney disease with stage 1 through stage 4 chronic kidney disease, or unspecified chronic kidney disease; E11.22 Type 2 diabetes mellitus with diabetic chronic kidney disease; N18.9 Chronic kidney disease, unspecified; D63.1 Anemia in chronic kidney disease; E78.5 Hyperlipidemia, unspecified; E03.9 Hypothyroidism, unspecified; J44.9 Chronic obstructive pulmonary disease, unspecified; K21.9 Gastro-esophageal reflux disease without esophagitis; F32.A Depression, unspecified; F41.9 Anxiety disorder, unspecified; E66.01 Morbid (severe) obesity due to excess calories; Z68.43 Body mass index [BMI] 50.0-59.9, adult; Z79.84 Long term (current) use of oral hypoglycemic drugs; Z79.899 Other long term (current) drug therapy; G43.909 Migraine, unspecified, not intractable, without status migrainosus
CPT/HCPCS: 74018; 80048; 96374; 96375; 99284; A4216

== ENCOUNTER 2021-01-13 09:35 | Day surgery (SDC) | payer MEDICARE, MEDICAID, SELFPAY ==
--- NOTE | 2021-01-13 08:33 | PCM.OPRPT ---
Problems Associated Problem List Diagnoses (1) Ureterolithiasis: (2) Flank pain: (3) Constipation: Report of Operation Date of Procedure: 01/13/21 Pre-Operative Diagnosis: ureterolithiasis, hydronephrosis and flank pain Post-Operative Diagnosis: same Surgery/Procedure Performed:: cystoscopy with removal of left ureteral stent Surgeon: Britt Robles Type of Anesthesia: MAC Description of Procedure: The patient is a 50-year-old female that underwent a cystoscopy, ureteroscopy with laser lithotripsy and stent insertion last week. An attempt was made at cystoscopy with stent removal in the office yesterday and the patient was unable to tolerate the procedure. She now presents for a stent under anesthesia. Informed consent was obtained. Patient was taken to the operating room and placed on the operating room table. Anesthesia monitored the head, neck, airway, IV access and vital signs throughout the case. Once anesthesia was appropriately administered the patient was placed into dorsal lithotomy position was prepped and draped in usual sterile fashion. The cystoscope was inserted through the urethra under direct visualization into the urinary bladder. The left ureteral stent was easily observed grasped and removed without difficulty. The patient's bladder was emptied and the cystoscope was removed and the case was terminated. The patient was awakened and taken to recovery room condition. There were no complications during this procedure. Grafts/Implants Used: none Complications none Admit VTE Documentation VTE Present on Admission: No VTE Mechan Device Prophylaxis: None VTE Pharm Prophylaxis ordered?: No Reason prophylaxis not ordered:: Treatment Not Indicated
[2021-01-13] MEDS: Lactated Ringers 1,000 ML 15 ML IV (09:50)
[2021-01-13 10:11] VITALS: BP 149/98; PULSE 86; RESP 18; TEMP 36.1; O2SAT 96; BMI 50.3
[2021-01-13 10:31] LABS: Bedside Glucose 120 mg/dL (70-110)
[2021-01-13 11:00] VITALS: BP 137/87; BP 149/98; PULSE 79; RESP 18; TEMP 36.2; O2SAT 100
[2021-01-13 11:05] VITALS: BP 140/89; BP 149/98; PULSE 69; RESP 18; O2SAT 100
[2021-01-13 11:10] VITALS: BP 135/98; BP 149/98; PULSE 77; RESP 18; O2SAT 99
[2021-01-13 11:15] VITALS: BP 136/84; BP 149/98; PULSE 77; RESP 18; TEMP 36.1; O2SAT 100
--- NOTE | 2021-01-13 11:57 | PCM.DC ---
Discharge Instructions Diet Discharge Diet: No restrictions Activity Discharge Activity: Return to Normal Activity May resume sexual activity in: No Restrictions Dressing / Incision Call your doctor if you observe: Fever of 101 or Higher, Inability to urinate, Inability to have a bowel movement and Uncontrolled pain Follow Up Care Please Follow Up With: Britt Robles MD When: in 2 weeks in the office Test Results: Test results from this visit will be discussed in further detail at your follow-up appointment, if applicable. Discharge Plan Admission Attending Provider: Britt Robles Primary Care Provider: Casey Lutz [employer] Discharge Orders/Prescriptions Prescriptions: Continued topiramate 100 mg tablet 100 mg PO DAILY RF: 0 omeprazole 40 mg capsule,delayed release(DR/EC) 40 mg PO DAILY RF: 0 promethazine 25 mg tablet 25 mg PO Q6H PRN (Reason: Nausea) RF: 0 Jardiance 25 mg tablet 25 mg PO DAILY RF: 0 magnesium oxide 500 mg tablet 500 mg PO DAILY RF: 0 Ubrelvy 100 mg tablet 100 mg PO ONCE RF: 0 amlodipine 5 mg tablet 5 mg PO DAILY RF: 0 loratadine 10 mg tablet 10 mg PO DAILY RF: 0 cholecalciferol (vitamin D3) 1,250 mcg (50,000 unit) capsule 50,000 unit PO QWEEK RF: 0 meloxicam 15 mg tablet 15 mg PO DAILY RF: 0 cyanocobalamin (vitamin B-12) 1,000 mcg tablet 1,000 mcg PO DAILY RF: 0 acetaminophen 650 mg tablet extended release 1,300 mg PO QHS RF: 0 ascorbic acid (vitamin C) 500 mg tablet 500 mg PO DAILY RF: 0 ferrous sulfate 325 mg (65 mg iron) tablet 325 mg PO DAILY RF: 0 budesonide-formoterol [Symbicort] 160-4.5 mcg/actuation HFA aerosol inhaler 2 puff INHALATION BID RF: 0 Ajovy Autoinjector 225 mg/1.5 mL auto-injector 225 mg SC QMONTH RF: 0 rimegepant 75 mg tablet,disintegrating 75 mg PO ONCE RF: 0 gabapentin 100 mg capsule 300 mg PO DAILY RF: 0 levothyroxine 200 mcg tablet 200 mcg PO DAILY Qty: 30 RF: 6 albuterol sulfate 1 PUFF inhaler 2 puff PO Q4H PRN PRN (Reason: Shortness Of Breath) RF: 0 megestrol 40 mg tablet 40 mg PO QHS RF: 0 valsartan 80 mg tablet 80 mg PO DAILY RF: 0 rosuvastatin [Crestor] 40 mg tablet 40 mg PO QHS RF: 0 Trelegy Ellipta 100-62.5-25 mcg blister with device 1 ea INHALATION DAILY RF: 0 ondansetron 4 MG tablet 4 mg PO Q8H PRN PRN (Reason: Nausea) Qty: 10 RF: 0 phenazopyridine [Pyridium] 200 MG tablet 200 mg PO TID PRN PRN (Reason: Bladder Spasms) 7 Days Qty: 30 RF: 0 ketorolac 10 mg tablet 10 mg PO Q6H PRN (Reason: pain) 3 Days RF: 0 oxycodone-acetaminophen 1 TABLET tablet 2 tab PO DAILY RF: 0 citalopram 40 mg tablet 40 mg PO DAILY RF: 0 hydroxyzine HCl 25 mg tablet 25 mg PO TID PRN (Reason: Anxiety) RF: 0 Referrals / Follow Up: Casey Lutz NP, [employer] [Primary Care Provider] - Disposition Disposition (needs filled in before D/C Order can be placed): Home, Self Care
[2021-01-13] MEDS: Acetaminophen 500 MG Tablet 1000 MG PO (11:58)
[2021-01-13 12:05] LABS: Bedside Glucose 86 mg/dL (70-110)
[2021-01-13 12:20] VITALS: BP 149/98
== END 2021-01-13 12:43 | disposition home or self-care (01) ==
LOC: SDC 09:37 → AC 09:37
PROVIDERS: PCP Nurse Practitioner Family; Referring Provider Urology; Visit Provider Urology
PROC: (CPT 52332; principal; 2021-01-13 10:50)
DX: N13.2 Hydronephrosis with renal and ureteral calculous obstruction (principal); K59.00 Constipation, unspecified; N32.89 Other specified disorders of bladder; I12.9 Hypertensive chronic kidney disease with stage 1 through stage 4 chronic kidney disease, or unspecified chronic kidney disease; E11.22 Type 2 diabetes mellitus with diabetic chronic kidney disease; N18.9 Chronic kidney disease, unspecified; D63.1 Anemia in chronic kidney disease; K21.9 Gastro-esophageal reflux disease without esophagitis; E78.5 Hyperlipidemia, unspecified; E03.9 Hypothyroidism, unspecified; M19.90 Unspecified osteoarthritis, unspecified site; J44.9 Chronic obstructive pulmonary disease, unspecified; F32.A Depression, unspecified; F41.9 Anxiety disorder, unspecified; E66.01 Morbid (severe) obesity due to excess calories; Z68.41 Body mass index [BMI] 40.0-44.9, adult; Z79.84 Long term (current) use of oral hypoglycemic drugs; Z79.899 Other long term (current) drug therapy
CPT/HCPCS: 52310; 82962; J7120; J2405

== ENCOUNTER → 2021-01-16 08:24 | Outpatient (CLI) | payer MEDICARE, MEDICAID, SELFPAY ==
--- NOTE | 2021-01-16 08:30 | RAD_ITS ---
PROCEDURE: Sniff test. DATE OF EXAMINATION: 01/16/2021. INDICATION: Female, 50 years old. Shortness of breath. FLUOROSCOPY TIME (if supplied): (18 seconds) minutes/seconds. 2 images were obtained. Normal diaphragmatic movement. RAD/Fluoroscopy 1 Hr or Less IMPRESSION: Normal diaphragmatic movement during expiration and inspiration. Electronically Signed: Seun Vieira MD at 8:53 EST , Service support ,
== END ==
PROVIDERS: PCP Nurse Practitioner Family; Referring Provider Internal Medicine Pulmonary Disease; Visit Provider Internal Medicine Pulmonary Disease
DX: R06.00 Dyspnea, unspecified (principal)
CPT/HCPCS: 76000

== ENCOUNTER → 2021-01-29 14:09 | Outpatient (CLI) | payer MEDICARE, MEDICAID, SELFPAY ==
--- NOTE | 2021-01-29 14:16 | US_ITS ---
STUDY: RENAL ULTRASOUND - COMPLETE REASON FOR EXAM: Female, 50 years old. Nausea TECHNIQUE: Ultrasound evaluation of the kidneys was performed with real-time and static poole-scale imaging. COMPARISON: None. FINDINGS: RIGHT KIDNEY: The right kidney measures 11.9 x 5.2 x 5.4 cm. The renal cortex measures 1.3 cm. There are anechoic lesions within the midpole measuring up to 1.4 cm. There are no right renal calculi. There is no right hydronephrosis. DISTAL RIGHT URETER: There is non-visualization of the distal right ureter. There is no demonstrated right ureterovesical junction calculus. There is no demonstrated right ureteral jet. LEFT KIDNEY: The left kidney measures 10.5 x 5.4 x 4.9 cm. The renal cortex measures 1.3 cm. There are anechoic lesions to 1.5 cm. There is a 6 mm calculus within the lower pole. There is no left hydronephrosis. DISTAL LEFT URETER: There is non-visualization of the distal left ureter. There is no demonstrated left ureterovesical junction calculus. There is no demonstrated left ureteral jet. BLADDER: The distended urinary bladder has a volume of 155 ml. There is mild wall thickening. There is no demonstrated mass within the urinary bladder. There are no demonstrated bladder calculi. US/Kidney and Bladder IMPRESSION: 1. Simple appearing bilateral parapelvic renal cysts 2. Nonobstructing 6 mm left lower renal pole calculus. Electronically Signed: Roberto Lin MD at 1:25 EST Tel , Service support ,
[2021-01-29 16:18] LABS: Hematocrit 37.8 % (37-47); Hemoglobin 11.8 g/dL (12.0-15.0); Mean Corp Hgb Conc 31.2 g/dL (32-36); Mean Corpuscular Hgb 30.6 pg (27.0-32.0); Mean Corpuscular Volume 98.2 fL (81-99); Platelet Count 320 K/mm3 (150-450); RBC Distribution Width CV 16.3 % (11.6-14.6); RBC Distribution Width SD 59.3 fl (35.1-43.9); Red Blood Count 3.85 M/mm3 (4.2-5.4); White Blood Count 9.3 K/mm3 (4.4-11.0)
[2021-01-29 17:30] LABS: Anion Gap 5 (5-15); BUN 16 mg/dL (7-18); BUN/Creat Ratio 14.5 RATIO (10-20); Calcium,Total 8.9 mg/dL (8.5-10.1); Chloride 112 mmol/L (98-107); EST Glomerular Filtration Rate 56 mL/min (>60); Est Glom Filt Rate - Afr Amer 68 mL/min (>60); Glucose 147 mg/dL (74-106); Potassium 4.1 mmol/L (3.5-5.1); Sodium Level 138 mmol/L (136-145); T4 Free Direct 0.87 ng/dL (0.76-1.46); Thyroid Stim Hormone (TSH) 3.24 uIU/mL (0.358-3.74)
== END ==
PROVIDERS: Internal Medicine Endocrinology, Diabetes & Metabolism; PCP Nurse Practitioner Family; Referring Provider Urology; Visit Provider Urology
DX: R11.0 Nausea (principal); F41.9 Anxiety disorder, unspecified; E03.9 Hypothyroidism, unspecified; N28.1 Cyst of kidney, acquired
CPT/HCPCS: 36415; 76770; 80048; 84439; 84443; 85027; 87086; 87088

== ENCOUNTER → 2021-02-06 11:29 | Outpatient (CLI) | payer MEDICARE, MEDICAID, SELFPAY | PROVIDERS: PCP Nurse Practitioner Family; Referring Provider Internal Medicine Pulmonary Disease; Visit Provider Internal Medicine Pulmonary Disease | DX: R05.9 Cough, unspecified (principal); R06.00 Dyspnea, unspecified | CPT/HCPCS: 87635; C9803; U0005; U0003 ==

== ENCOUNTER → 2021-02-13 13:17 | Outpatient (CLI) | payer MEDICARE, MEDICAID, SELFPAY ==
--- NOTE | 2021-02-13 13:24 | CT_ITS ---
STUDY: CT CHEST WITHOUT CONTRAST REASON FOR EXAM: Female, 50 years old. SPN -- W/DYNAMIC AIRWAY COMPRESSION. Follow-up for pulmonary nodule. RADIATION DOSAGE (If Supplied By Facility): CTDIvol = ( 26.70 ) mGy, DLP = ( 828.82 ) mGycm TECHNIQUE: Transaxial imaging was performed without the administration of intravenous contrast material. Multiplanar coronal and sagittal images were reformatted. Individualized dose optimization techniques were used for this CT. COMPARISON: None. FINDINGS: The lungs are normal. There is no demonstrated pleural abnormality. There are calcifications of the coronary arteries. Normal mediastinum. Normal hilar regions. Normal unenhanced pulmonary arteries. Normal aorta arch and descending thoracic aorta. There are mild degenerative changes of the thoracic spine. There is no demonstrated abnormality of the visualized upper abdomen. CT/Chest without Contrast IMPRESSION: Coronary artery calcification. No acute abnormality is seen. Electronically Signed: Seun Vieira MD at 14:54 EST , Service support ,
== END ==
PROVIDERS: PCP Nurse Practitioner Family; Referring Provider Internal Medicine Pulmonary Disease; Visit Provider Internal Medicine Pulmonary Disease
DX: R91.1 Solitary pulmonary nodule (principal)
CPT/HCPCS: 71250

== ENCOUNTER → 2021-02-16 16:27 | Outpatient (CLI) | payer MEDICARE, MEDICAID, SELFPAY ==
[2021-02-16 17:23] LABS: Amphetamine Urine VISTA NEGATIVE (<1000 ng/mL); Barbiturate Urine VISTA NEGATIVE (< 200 ng/mL); Benzodiazepine Urine VISTA NEGATIVE (< 200 ng/mL); Cocaine Urine VISTA NEGATIVE (< 300 ng/mL); Ecstacy Urine VISTA NEGATIVE (< 500 ng/mL); Methadone Urine VISTA NEGATIVE (< 300 ng/mL); PCP Urine VISTA NEGATIVE (< 25 ng/mL); THC Urine VISTA NEGATIVE (< 50 ng/mL); Vista UDS pH Range 5
== END ==
PROVIDERS: PCP Nurse Practitioner Family; Referring Provider Anesthesiology Pain Medicine; Visit Provider Anesthesiology Pain Medicine
DX: F11.20 Opioid dependence, uncomplicated (principal)
CPT/HCPCS: 80307

== ENCOUNTER 2021-03-28 14:25 | Emergency (ER) | payer MEDICARE, MEDICAID, SELFPAY ==
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
== END 2021-03-28 16:55 | disposition home or self-care (01) ==
LOC: ED 19:28
PROVIDERS: Emergency Provider Emergency Medicine; PCP Nurse Practitioner Family; Visit Provider Emergency Medicine
DX: M76.31 Iliotibial band syndrome, right leg (principal); E11.9 Type 2 diabetes mellitus without complications; I12.9 Hypertensive chronic kidney disease with stage 1 through stage 4 chronic kidney disease, or unspecified chronic kidney disease; N18.9 Chronic kidney disease, unspecified; E78.00 Pure hypercholesterolemia, unspecified; Z79.84 Long term (current) use of oral hypoglycemic drugs; Z79.899 Other long term (current) drug therapy
CPT/HCPCS: 96372; 99283

== ENCOUNTER 2021-04-14 09:41 | Outpatient (CLI) | payer MEDICARE, MEDICAID, SELFPAY ==
--- NOTE | 2021-04-14 09:57 | US_ITS ---
STUDY: ABDOMINAL ULTRASOUND - RIGHT UPPER QUADRANT REASON FOR VISIT: Female, 50 years old RUQ PAIN loss of appetite TECHNIQUE: Ultrasound evaluation of the right upper quadrant was performed with real-time and static l[place]-scale imaging. TECHNICAL QUALITY: Limited. Examination limited due to obesity. COMPARISON: None. FINDINGS: Liver: The liver measures 17.4 cm. There is increased echogenicity consistent with fatty infiltration. The bile ducts are within normal limits. There is hepatic color flow. The direction of portal flow is hepatopetal. There is no demonstrated mass lesion. Gallbladder: Normal distended gallbladder. The gallbladder wall measures 2 mm. There is a negative sonographic Mclean''s sign. There is no pericholecystic fluid. There are multiple echogenic structures within the gallbladder, consistent with multiple gallstones. Common Bile Duct (C.B.D.): The common bile duct measures 2 mm. Pancreas: Normal size of the head, body and tail of the pancreas. There is normal echogenicity of the pancreas. There is no demonstrated pancreatic mass or cyst. Right Kidney: Normal size of the right kidney. The right kidney measures 11.2 x 5.7 x 4.7 cm. Normal renal cortex. The right cortex measures 1.1 cm. There is no demonstrated renal mass or cyst. There is mild hydronephrosis of the right kidney of uncertain etiology. US/Abdomen Limited IMPRESSION: Cholelithiasis, no sonographic evidence of cholecystitis Mild right hydronephrosis of uncertain etiology Fatty liver Electronically Signed: Rafa Rogers MD at 13:59 EST ,
[2021-04-14 11:23] LABS: Hematocrit 39.6 % (37-47); Hemoglobin 12.2 g/dL (12.0-15.0); Mean Corp Hgb Conc 30.8 g/dL (32-36); Mean Corpuscular Hgb 26.8 pg (27.0-32.0); Mean Platelet Vol. 10.5 fl (6.2-12.0); Platelet Count 374 K/mm3 (150-450); RBC Distribution Width CV 16.6 % (11.6-14.6); RBC Distribution Width SD 51.6 fl (35.1-43.9); Red Blood Count 4.55 M/mm3 (4.2-5.4); White Blood Count 9.2 K/mm3 (4.4-11.0)
[2021-04-14 11:46] LABS: Hemoglobin A1c 6.8 % (3.8-5.6)
[2021-04-14 11:55] LABS: ALB/GLOB Ratio 0.6 RATIO (0.9-2.4); AST(SGOT) 24 U/L (15-37); Alanine Aminotransfer ALT/SGPT 26 U/L (13-56); Albumin, Serum 2.9 g/dL (3.2-5.0); Alkaline Phosphatase 122 U/L (45-117); Anion Gap 7 (5-15); BUN 11 mg/dL (7-18); BUN/Creat Ratio 9.7 RATIO (10-20); Calcium,Total 9.6 mg/dL (8.5-10.1); Chloride 109 mmol/L (98-107); Creatinine, Serum 1.13 mg/dL (0.55-1.02); EST Glomerular Filtration Rate 54 mL/min (>60); Est Glom Filt Rate - Afr Amer 65 mL/min (>60); Globulin 4.5 g/dL (2.2-4.2); Glucose 112 mg/dL (74-106); Potassium 4.1 mmol/L (3.5-5.1); Protein, Total 7.4 g/dL (6.4-8.2); Sodium Level 139 mmol/L (136-145)
== END 2021-04-14 23:59 | disposition home or self-care (01) ==
PROVIDERS: PCP Nurse Practitioner Family; Visit Provider Nurse Practitioner Family
DX: K80.20 Calculus of gallbladder without cholecystitis without obstruction (principal); E11.22 Type 2 diabetes mellitus with diabetic chronic kidney disease; N18.30 Chronic kidney disease, stage 3 unspecified; N13.30 Unspecified hydronephrosis; K76.0 Fatty (change of) liver, not elsewhere classified
CPT/HCPCS: 36415; 76705; 80053; 83036; 85027

== ENCOUNTER 2021-04-20 12:12 | Outpatient (CLI) | payer MEDICARE, MEDICAID, SELFPAY ==
--- NOTE | 2021-04-20 12:26 | MRI_ITS ---
STUDY: MRI BRAIN WITHOUT CONTRAST REASON FOR EXAM: Female, 50 years old. DIZZINESS AND GIDDINESS TECHNIQUE: Standardized multiplanar fat and water weighted pulse sequences were obtained. COMPARISON: None. FINDINGS: Normal size of the ventricles and extra-axial spaces for the patient''s age. Normal white matter tracts of the supratentorial brain. There is no evidence for recent intracranial ischemia or other cause of cytotoxic edema on diffusion weighted imaging (DWI). Normal T2* images of the brain without demonstrated susceptibility artifact. There is no demonstrated hemosiderin stain. Normal bilateral basal ganglia. Normal thalami. There is no extra-axial fluid accumulation. Normal flow voids within the major intracranial circulation suggesting patency by spin echo criteria. Normal sella turcica, pituitary gland, infundibular stalk, optic chiasm and hypothalamus. Normal tectal plate and pineal gland. Normal midbrain, tila and medulla. Normal cerebellum. Normal basal cisterns. There is mild chronic otomastoiditis of the right temporal bone. Normal bilateral internal auditory canals. No demonstrated orbital abnormality, within the constraints of a routine brain study. Normal visualized paranasal sinuses. Normal calvarium and skull base. Normal visualized soft tissue structures. Normal visualized upper cervical spine. MRI/Brain without Contrast IMPRESSION: Normal unenhanced MRI of the brain. Electronically Signed: Casey Pichardo MD at 14:51 EST ,
[2021-04-21 07:23] LABS: CREATININE FINGERSTICK 1.03 mg/dL (0.55-1.02); EGFR FINGERSTICK 60 mL/min (>60)
== END 2021-04-20 23:59 | disposition home or self-care (01) ==
PROVIDERS: PCP Nurse Practitioner Family; Visit Provider Nurse Practitioner Family
DX: R42 Dizziness and giddiness (principal)
CPT/HCPCS: 70551

== ENCOUNTER 2021-04-24 12:09 | Outpatient (CLI) | payer MEDICARE, MEDICAID, SELFPAY ==
--- NOTE | 2021-04-24 12:12 | US_ITS ---
STUDY: RENAL ULTRASOUND - COMPLETE REASON FOR EXAM: Female, 50 years old. HYDRONEPHROSIS TECHNIQUE: Ultrasound evaluation of the kidneys was performed with real-time and static poole-scale imaging. COMPARISON: Comparison is made with prior examination of 01/29/2021. FINDINGS: RIGHT KIDNEY: Normal location of the right kidney, which is normal in size. The right kidney measures 11.6 cm x 5.4 cm x 4.9 cm. There is a normal cortex of the right kidney. The renal cortex measures 1.2 cm. Parapelvic renal cysts. The largest measures 1.6 cm x 1.5 cm x 1.1 cm. There are no right renal calculi. There is no right hydronephrosis. DISTAL RIGHT URETER: There is non-visualization of the distal right ureter. There is no demonstrated right ureterovesical junction calculus. There is a visualized right ureteral jet. LEFT KIDNEY: Normal location of the left kidney, which is normal in size. The left kidney measures 10.5 cm x 5.2 cm x 5.1 cm. There is a normal cortex of the left kidney. The renal cortex measures 1.4 cm. Parapelvic cysts are seen. The largest measures 1.2 cm x 1.3 cm by 1.1 cm. There are no left renal calculi. There is no left hydronephrosis. DISTAL LEFT URETER: There is non-visualization of the distal left ureter. There is no demonstrated left ureterovesical junction calculus. There is no demonstrated left ureteral jet. BLADDER: The distended urinary bladder has a volume of 355 ml. There is a normal wall thickness of the distended urinary bladder. There is no demonstrated mass within the urinary bladder. There are no demonstrated bladder calculi. US/Kidney and Bladder IMPRESSION: Stable bilateral parapelvic cysts. Electronically Signed: Seun Vieira MD at 14:30 EST ,
== END 2021-04-24 23:59 | disposition home or self-care (01) ==
LOC: US 12:10
PROVIDERS: PCP Nurse Practitioner Family; Referring Provider Nurse Practitioner Family; Visit Provider Nurse Practitioner Family
DX: N13.30 Unspecified hydronephrosis (principal); N94.89 Other specified conditions associated with female genital organs and menstrual cycle
CPT/HCPCS: 76770

== ENCOUNTER 2021-05-11 08:34 | Outpatient (CLI) | payer MEDICARE, MEDICAID, SELFPAY ==
[2021-05-11 09:17] LABS: Hematocrit 41.4 % (37-47); Hemoglobin 12.7 g/dL (12.0-15.0); Mean Corp Hgb Conc 30.7 g/dL (32-36); Mean Corpuscular Hgb 27.4 pg (27.0-32.0); Mean Corpuscular Volume 89.4 fL (81-99); Mean Platelet Vol. 9.6 fl (6.2-12.0); Platelet Count 393 K/mm3 (150-450); RBC Distribution Width CV 17.6 % (11.6-14.6); RBC Distribution Width SD 57.4 fl (35.1-43.9); Red Blood Count 4.63 M/mm3 (4.2-5.4); White Blood Count 11.3 K/mm3 (4.4-11.0)
[2021-05-11 09:40] LABS: Hemoglobin A1c 6.7 % (3.8-5.6)
[2021-05-11 09:49] LABS: Vitamin B12 320 pg/mL (211-911); Vitamin D,25 Hydroxy 15.9 ng/mL
[2021-05-11 10:14] LABS: ALB/GLOB Ratio 0.7 RATIO (0.9-2.4); AST(SGOT) 10 U/L (15-37); Alanine Aminotransfer ALT/SGPT 22 U/L (13-56); Alkaline Phosphatase 123 U/L (45-117); Anion Gap 7 (5-15); BUN 13 mg/dL (7-18); BUN/Creat Ratio 11.3 RATIO (10-20); Calcium,Total 8.9 mg/dL (8.5-10.1); Chloride 109 mmol/L (98-107); Cholesterol 147 mg/dL (200); Creatinine, Serum 1.15 mg/dL (0.55-1.02); EST Glomerular Filtration Rate 53 mL/min (>60); Est Glom Filt Rate - Afr Amer 64 mL/min (>60); Globulin 4.1 g/dL (2.2-4.2); Glucose 120 mg/dL (74-106); High Density Lipoprotein 32 mg/dL; Iron 35 ug/dL (50-170); Iron Binding Capacity,Total 354 ug/dL (250-450); Potassium 3.6 mmol/L (3.5-5.1); Protein, Total 7.1 g/dL (6.4-8.2); Sodium Level 138 mmol/L (136-145); T4 Free Direct 1.13 ng/dL (0.76-1.46); Thyroid Stim Hormone (TSH) 0.03 uIU/mL (0.358-3.74); Triglycerides 113 mg/dL; Very Low Density Lipoprotein 23 mg/dL (5-40)
== END 2021-05-11 23:59 | disposition home or self-care (01) ==
LOC: LAB 08:36
PROVIDERS: PCP Nurse Practitioner Family; Referring Provider Nurse Practitioner Family; Visit Provider Nurse Practitioner Family
DX: I12.9 Hypertensive chronic kidney disease with stage 1 through stage 4 chronic kidney disease, or unspecified chronic kidney disease (principal); E11.22 Type 2 diabetes mellitus with diabetic chronic kidney disease; N18.30 Chronic kidney disease, stage 3 unspecified; E53.8 Deficiency of other specified B group vitamins; D50.9 Iron deficiency anemia, unspecified; E78.00 Pure hypercholesterolemia, unspecified; E03.9 Hypothyroidism, unspecified; E55.9 Vitamin D deficiency, unspecified
CPT/HCPCS: 36415; 80053; 80061; 82306; 82607; 82746; 83036; 83540; 83550; 84439; 84443; 85027

== ENCOUNTER 2021-05-13 09:43 | Outpatient (CLI) | payer MEDICARE, MEDICAID, SELFPAY ==
--- NOTE | 2021-05-13 09:49 | NM_ITS ---
CLINICAL: 50-year-old female with reported history of right upper quadrant abdominal pain. RADIONUCLIDE HEPATOBILIARY SCINTIGRAPHY COMPARISON: Abdominal ultrasound report 04/14/2021, hepatobiliary scintigraphy report 09/30/2017 FINDINGS: Following the intravenous administration of 5.3 mCi of 99m Tc Mebrofenin, hepatobiliary images reveal: 1. Relatively prompt and homogeneous radiopharmaceutical concentration is noted by a normal sized liver. No parenchymal defects are identified. 2. Gallbladder activity is identified at 15 minutes post radiopharmaceutical administration. 3. Small intestinal tract is not visualized during 60 minutes of pre-fatty meal sequential image acquisition. Bowel activity is observed following meal completion. 4. Washout of the radiopharmaceutical by the hepatic parenchyma appears qualitatively normal. The patient was administered a fatty meal (4 ounces BOOST). The post fatty meal consumption gallbladder ejection fraction calculated at 27 minutes was noted to be 76.0 % (normal greater than 30%). NM/Hepatobilliary Img w/Pharm Int IMPRESSION: 1. NORMAL 99m Tc Mebrofenin hepatobiliary imaging examination with fatty meal ingestion. A. A gallbladder ejection fraction calculated to be greater than 30% following the administration of a consumed fatty meal makes the probability of functional hepatobiliary disease (gallbladder and/or sphincter of Oddi dyskinesia) and/or organic hepatobiliary disease (chronic acalculous cholecystitis and/or cystic duct syndrome) to be low. (Kerrie and Edd, J Nucl Med 43: 1603, 2002). B. Overall compared to the previous hepatobiliary scintigraphy study dated 09/30/2017, there is current visualization of the gallbladder as defined above. Electronically Signed: Casey Aldana DO at 20:47 EDT ,
== END 2021-05-13 23:59 | disposition home or self-care (01) ==
LOC: NM 09:46
PROVIDERS: PCP Nurse Practitioner Family; Referring Provider Nurse Practitioner Family; Visit Provider Nurse Practitioner Family
DX: K80.20 Calculus of gallbladder without cholecystitis without obstruction (principal); R10.11 Right upper quadrant pain
CPT/HCPCS: 78227; A9537

== ENCOUNTER 2021-06-08 11:31 | Outpatient (CLI) | payer MEDICARE, MEDICAID, SELFPAY ==
--- NOTE | 2021-06-08 11:45 | RAD_ITS ---
STUDY: X-RAY CHEST REASON FOR EXAM: Female, 50 years old. PRE-OP TECHNIQUE: Frontal and lateral views of the chest. COMPARISON: None. FINDINGS: The lungs are clear and expanded. There is no demonstrated pleural abnormality. Normal size heart. Normal mediastinum and kumar. Normal visualized pulmonary arteries. Normal visualized aortic arch and descending thoracic aorta. Normal visualized thoracic spine. Normal visualized ribs, clavicles, and shoulders. There is no demonstrated abnormality of the visualized soft tissue structures of the upper abdomen. RAD/Chest PA and Lateral IMPRESSION: Normal x-ray examination of the chest. Electronically Signed: Maury Srivastava MD at 18:46 EDT ,
--- NOTE | 2021-06-08 12:10 | EKG12_ITS ---
Test Reason : PRE OP Blood Pressure : / mmHG Vent. Rate : 064 BPM Atrial Rate : 064 BPM P-R Int : 148 ms QRS Dur : 082 ms QT Int : 392 ms P-R-T Axes : 061 -15 034 degrees QTc Int : 404 ms Normal sinus rhythm Nonspecific ST and T wave abnormality Abnormal ECG Confirmed by MIGUEL GONZALEZ, MAGALI ([id number]), commissioning editor ZANDER MAYER ([id number]) on 06/10/2021 8:12:07 AM Referred By: Isaac Kirkpatrick Confirmed By:MAGALI RIVERA MD
[2021-06-08 12:32] LABS: Absolute Lymphocyte Count 2.54 X10^3/uL (0.83-4.51); Absolute Neutrophil Count 5.3 X10^3/uL (2.0-7.7); Basophil% 1.1 % (0-1); Eosinophils% 4.4 % (0-5); Hematocrit 43.1 % (37-47); Hemoglobin 13.9 g/dL (12.0-15.0); Lymphocyte # 2.54 X10^3/ul (0.83-4.51); Lymphocyte % 28.2 % (19-41); Mean Corp Hgb Conc 32.3 g/dL (32-36); Mean Corpuscular Hgb 28.3 pg (27.0-32.0); Mean Corpuscular Volume 87.6 fL (81-99); Mean Platelet Vol. 10.4 fl (6.2-12.0); Monocyte# 0.61 X10^3/uL; Monocyte% 6.8 % (0-10); NRBC Flagged by Analyzer 0 % (0-5); Neutrophil # 5.31 X10^3/uL (2.7-7.7); Neutrophil % 59.1 % (47-70); Platelet Count 404 K/mm3 (150-450); RBC Distribution Width CV 19.9 % (11.6-14.6); RBC Distribution Width SD 61.6 fl (35.1-43.9); Red Blood Count 4.92 M/mm3 (4.2-5.4)
[2021-06-08 12:41] LABS: International Normalized Ratio 1.2; Prothrombin Time (Protime)PT. 14.1 SECONDS (11.7-14.9)
[2021-06-08 12:50] LABS: Hemoglobin A1c 6.5 % (3.8-5.6)
[2021-06-08 13:06] LABS: Albumin, Serum 3.4 g/dL (3.2-5.0); Anion Gap 8 (5-15); BUN 8 mg/dL (7-18); Chloride 110 mmol/L (98-107); Creatinine, Serum 1.34 mg/dL (0.55-1.02); EST Glomerular Filtration Rate 44 mL/min (>60); Est Glom Filt Rate - Afr Amer 54 mL/min (>60); Glucose 100 mg/dL (74-106); Potassium 3.6 mmol/L (3.5-5.1); Sodium Level 139 mmol/L (136-145)
== END 2021-06-08 23:59 | disposition home or self-care (01) ==
PROVIDERS: PCP Nurse Practitioner Family; Referring Provider Orthopaedic Surgery; Visit Provider Orthopaedic Surgery
DX: Z01.810 Encounter for preprocedural cardiovascular examination (principal); Z01.818 Encounter for other preprocedural examination; Z01.811 Encounter for preprocedural respiratory examination
CPT/HCPCS: 36415; 71046; 80048; 82040; 83036; 85025; 85610; 85730; 93005

== ENCOUNTER 2021-07-08 13:36 | Emergency (ER) | payer MEDICARE, MEDICAID, SELFPAY ==
[2021-07-08 13:37] VITALS: BP 163/107; PULSE 99; RESP 18; TEMP 36.3; O2SAT 99; BMI 49.2
--- NOTE | 2021-07-08 14:15 | CT_ITS ---
STUDY: CT ABDOMEN AND PELVIS WITHOUT CONTRAST REASON FOR EXAM: Female, 50 years old. Abd pain, constipation X1 MONTH RADIATION DOSAGE (If Supplied By Facility): CTDIvol = ( 32.36 ) mGy, DLP = ( 1940.67 ) mGycm TECHNIQUE: Transaxial images were obtained from the dome of the diaphragm to the symphysis pubis without oral contrast, and without intravenous contrast. Sagittal and coronal images were reconstructed. Individualized dose optimization techniques were used for this CT. COMPARISON: Comparison is made with prior examination dated 01/02/2021. FINDINGS: The visualized lung bases are unremarkable. Coronary artery calcification. There is decreased attenuation of the liver consistent with steatosis. Findings suggestive of a small gallstones. Correlation with ultrasound is suggested if clinically indicated. Normal spleen. Normal pancreas. Normal bilateral adrenal glands. Nonobstructive right intrarenal calculi. Normal left kidney. Normal visualized stomach. Normal small intestine. Large amount of fecal material is seen throughout the colon down to the rectum. There is non-visualization of the appendix. There is scattered atherosclerotic calcification of the abdominal aorta and its major visceral branches, without a demonstrated aneurysm. Normal inferior vena cava. Normal retroperitoneum. Normal urinary bladder. There is absence of the uterus consistent with a prior hysterectomy. Normal abdominal wall. Normal osseous structures. CT/Abdomen/Pelvis without Cont IMPRESSION: Large amount of fecal material is seen throughout the colon down to the rectum. Nonobstructive right intrarenal calculi. Findings suggestive of small gallstones. Electronically Signed: Seun Vieira MD at 15:21 EDT ,
--- NOTE | 2021-07-08 14:22 | EX.ED.DYSGE1 ---
HPI History of Present Illness Chief Complaint: Constipation Informant: patient Onset/Context/Timing Onset: Month(s) Narrative Narrative: Patient presents complaining of severe abdominal pain and constipation for the past month. She claims she has not had a bowel movement in 1 month. She was recently seen by both GI and general surgery and at that time reported constipation but was able to pass small pellets of stool. Patient states she recently tried magnesium citrate without improvement. [facility] Medical History Anemia Anxiety Arthritis Asthma BiPAP (biphasic positive airway pressure) dependence Cardiac murmur Celiac disease Chest pain Cholelithiasis Chronic kidney disease Constipation COPD (chronic obstructive pulmonary disease) Depression Diabetes Dyspnea on exertion Gastric reflux Gout Hepatic steatosis History of cholelithiasis History of chronic back pain Hydronephrosis Hyperlipidemia Hypersomnia Hypertension Hypothyroidism Iron deficiency anemia Microcytic anemia Migraine headache Morbid obesity with BMI of 40.0-44.9, adult Non-smoker Rash Restless leg syndrome Seasonal allergies Shortness of breath on exertion Sleep apnea Vitamin B12 deficiency Vitamin D deficiency Wears glasses Home Medications albuterol sulfate 2 puff PO Q4H PRN PRN 11/21/15 [History Last Taken 01/05/21] citalopram 40 mg tablet 40 mg PO DAILY 07/27/19 [History Last Taken 01/05/21] megestrol 40 mg tablet 40 mg PO QHS 09/28/19 [History Last Taken 01/05/21] acetaminophen 650 mg tablet,extended release 1,300 mg PO QHS tab 04/02/20 [History Last Taken 01/05/21] amlodipine 5 mg tablet 5 mg PO DAILY tab 04/02/20 [History Last Taken 01/05/21] ascorbic acid (vitamin C) 500 mg tablet 500 mg PO DAILY tab 04/02/20 [History Last Taken 01/05/21] budesonide-formoterol HFA 160 mcg-4.5 mcg/actuation aerosol inhaler 2 puff INHALATION BID g 04/02/20 [History Last Taken 01/05/21] cholecalciferol (vitamin D3) 1,250 mcg (50,000 unit) capsule 50,000 unit PO QWEEK cap 04/02/20 [History Last Taken 01/05/21] cyanocobalamin (vitamin B-12) 1,000 mcg tablet 1,000 mcg PO DAILY tab 04/02/20 [History Last Taken 01/05/21] empagliflozin 25 mg tablet 25 mg PO DAILY tab 04/02/20 [History Last Taken 01/05/21] ferrous sulfate 325 mg (65 mg iron) tablet 325 mg PO DAILY 04/02/20 [History Last Taken 01/05/21] fremanezumab-vfrm 225 mg/1.5 mL subcutaneous auto-injector 225 mg SC QMONTH ml 04/02/20 [History Last Taken 01/05/21] hydroxyzine HCl 25 mg tablet 25 mg PO TID PRN tab 04/02/20 [History Last Taken 01/05/21] loratadine 10 mg tablet 10 mg PO DAILY tab 04/02/20 [History Last Taken 01/05/21] magnesium oxide 500 mg tablet 500 mg PO DAILY 04/02/20 [History Last Taken 01/05/21] meloxicam 15 mg tablet 15 mg PO DAILY tab 04/02/20 [History Last Taken 01/05/21] omeprazole 40 mg capsule,delayed release 40 mg PO DAILY cap 04/02/20 [History Last Taken 01/05/21] promethazine 25 mg tablet 25 mg PO Q6H PRN tab 04/02/20 [History Last Taken 01/05/21] topiramate 100 mg tablet 100 mg PO DAILY tab 04/02/20 [History Last Taken 01/05/21] ubrogepant 100 mg tablet 100 mg PO ONCE 04/02/20 [History Last Taken 01/05/21] rimegepant 75 mg disintegrating tablet 75 mg PO ONCE tablet 06/19/20 [History Last Taken 01/05/21] Trelegy Ellipta 1 ea INHALATION DAILY 08/14/20 [History Last Taken 01/05/21] rosuvastatin [Crestor] 40 mg PO QHS 08/14/20 [History Last Taken 01/05/21] valsartan 80 mg PO DAILY 08/14/20 [History Last Taken 01/05/21] gabapentin 100 mg capsule 300 mg PO DAILY cap 09/30/20 [History Last Taken 01/05/21] phenazopyridine [Pyridium] 200 mg PO TID PRN PRN 7 Days #30 tab 01/06/21 [Rx Last Taken Unknown] ketorolac 10 mg PO Q6H PRN 3 Days tab 01/10/21 [Rx Last Taken Unknown] oxycodone-acetaminophen 2 tab PO DAILY 01/12/21 [History Last Taken Unknown] levothyroxine 175 mcg tablet 175 mcg PO DAILY #30 tab 05/19/21 [Rx Last Taken Unknown] febuxostat 40 mg tablet 40 mg PO DAILY 05/20/21 [History Last Taken Unknown] lorazepam 2 mg tablet 2 mg PO DAILY PRN 05/20/21 [History Last Taken Unknown] lubiprostone 8 mcg capsule 8 mcg PO BID #60 cap 06/24/21 [Rx Last Taken Unknown] Allergy/AdvReac Type Severity Reaction Status Date / Time hydrochlorothiazide AdvReac Intermediate Contributes Verified 07/08/21 13:38 to gout naproxen [From Naprosyn] AdvReac Intermediate Nausea Verified 07/08/21 13:38 aspirin AdvReac Nausea Verified 07/08/21 13:38 Family History Father , Age 72 Hypertension Mother CAD (coronary artery disease) Myocardial infarction, Onset Age: 55 Hypertension Sister CAD (coronary artery disease) Brother Cancer Surgical History History of carpal tunnel release History of left heart catheterization (11/11/20) history of uterine ablation Previous section Social History Smoking Status: Never smoker alcohol intake: never substance use type: does not use caffeine: No ROS ROS ED Constitutional Constitutional ED: Denies chills or fever(s) Eyes Eyes: Denies change in vision ENT ENT ED: Denies sore throat Cardiovascular Cardiovascular: Denies chest pain Respiratory/Chest Respiratory/Chest: Denies cough or dyspnea Gastrointestinal Gastrointestinal: Reports abdominal pain and constipation; Denies diarrhea, nausea or vomiting Genitourinary Genitourinary ED: Denies dysuria Musculoskeletal Musculoskeletal: Denies back pain Integumentary Denies rash Neurologic Neurologic: Denies headache(s) or weakness Allergic/Immunologic Allergic/Immunologic ED: Denies urticaria EXAM Physical Exam Const Vital Signs: 07/08/21 13:37 Temperature 97.3 F L Temperature Source Temporal Pulse Rate 99 Respiratory Rate 18 Blood Pressure 163/107 H Blood Pressure Mean 125 Pulse Ox 99 Oxygen Delivery Method Room Air Positive obese Nutritional Appearance: obese HEENT Reports moist mucous membranes Eyes PERRL and EOMs intact bilaterally Neck supple Chest Wall inspection of chest normal and palpation of chest normal Resp normal respiratory effort and clear to auscultation bilaterally Cardio regular rate and regular rhythm GI GI Narrative: Mild suprapubic tenderness to palpation. Hypoactive bowel sounds. Palpation: soft Neuro oriented x3 Sensorium / Orientation: alert Psych Mood & Affect: anxious Skin no rashes or lesions noted MDM MDM MDM Narrative Medical decision making narrative: Lab work obtained and patient sent for CT scan of the flank. Lab Data Attestation: I reviewed the patient's lab results. Labs: Laboratory Results - last 24 hr 07/08/21 07/08/21 14:25 14:25 WBC 9.4 RBC 4.55 Hgb 14.0 Hct 42.0 MCV 92.3 MCH 30.8 MCHC 33.3 RDW Std Deviation 71.2 H RDW Coeff of Alfredo 21.4 H Plt Count 334 MPV 10.9 Immature Gran % (Auto) 1.000 H Neut % (Auto) 78.0 H Lymph % (Auto) 13.8 L [place] % (Auto) 6.8 Eos % (Auto) 0.0 Baso % (Auto) 0.4 Absolute Neuts (auto) 7.3 Absolute Lymphs (auto) 1.29 Nucleated RBC % 0 Platelet Estimate ADEQUATE RBC Morphology N CHROM Anisocytosis 1+ Sodium 137 Potassium 4.3 Chloride 106 Carbon Dioxide 23.0 Anion Gap 8 BUN 9 Creatinine 1.58 H Estim Creat Clear Calc 36.78 Est GFR (MDRD) Af Amer 44 L Est GFR (MDRD) Non-Af 37 L BUN/Creatinine Ratio 5.7 L Glucose 123 H Calcium 9.7 Radiography Diagnostic Testing: Clinical Impression(s) from Imaging Studies Abdomen/Pelvis CT 07/08/21 14:15 IMPRESSION: Large amount of fecal material is seen throughout the colon down to the rectum. Nonobstructive right intrarenal calculi. Findings suggestive of small gallstones. Electronically Signed: Seun Vieira MD at 15:21 EDT , Treatment and Re-Evaluation Narrative: Lab work unremarkable. CT scan reveals large amount of fecal material but no evidence of bowel obstruction. Soapsuds enema was given. Patient had moderate results per nursing staff. She will be given GoLytely to use tomorrow at home. She can take Tylenol to help with pain. She is already on tramadol from her pain management doctor. She is to follow-up with her GI doctor. Discharge Plan Triage Chief Complaint: Constipation ED Provider: Nannette Stahl Dx/Rx/DC Orders Clinical Impression: Constipation Instructions: ED Constipation (Adult) Prescriptions: No Action topiramate 100 mg tablet 100 mg PO DAILY RF: 0 omeprazole 40 mg capsule,delayed release(DR/EC) 40 mg PO DAILY RF: 0 promethazine 25 mg tablet 25 mg PO Q6H PRN (Reason: Nausea) RF: 0 Jardiance 25 mg tablet 25 mg PO DAILY RF: 0 magnesium oxide 500 mg tablet 500 mg PO DAILY RF: 0 Ubrelvy 100 mg tablet 100 mg PO ONCE RF: 0 amlodipine 5 mg tablet 5 mg PO DAILY RF: 0 loratadine 10 mg tablet 10 mg PO DAILY RF: 0 cholecalciferol (vitamin D3) 1,250 mcg (50,000 unit) capsule 50,000 unit PO QWEEK RF: 0 meloxicam 15 mg tablet 15 mg PO DAILY RF: 0 cyanocobalamin (vitamin B-12) 1,000 mcg tablet 1,000 mcg PO DAILY RF: 0 acetaminophen 650 mg tablet extended release 1,300 mg PO QHS RF: 0 ascorbic acid (vitamin C) 500 mg tablet 500 mg PO DAILY RF: 0 ferrous sulfate 325 mg (65 mg iron) tablet 325 mg PO DAILY RF: 0 budesonide-formoterol [Symbicort] 160-4.5 mcg/actuation HFA aerosol inhaler 2 puff INHALATION BID RF: 0 Ajovy Autoinjector 225 mg/1.5 mL auto-injector 225 mg SC QMONTH RF: 0 rimegepant 75 mg tablet,disintegrating 75 mg PO ONCE RF: 0 gabapentin 100 mg capsule 300 mg PO DAILY RF: 0 levothyroxine 175 mcg tablet 175 mcg PO DAILY Qty: 30 RF: 6 lorazepam 2 mg tablet 2 mg PO DAILY PRNRF: 0 febuxostat 40 mg tablet 40 mg PO DAILY RF: 0 lubiprostone [Amitiza] 8 mcg capsule 8 mcg PO BID Qty: 60 RF: 1 albuterol sulfate 1 PUFF inhaler 2 puff PO Q4H PRN PRN (Reason: Shortness Of Breath) RF: 0 megestrol 40 mg tablet 40 mg PO QHS RF: 0 valsartan 80 mg tablet 80 mg PO DAILY RF: 0 rosuvastatin [Crestor] 40 mg tablet 40 mg PO QHS RF: 0 Trelegy Ellipta 100-62.5-25 mcg blister with device 1 ea INHALATION DAILY RF: 0 phenazopyridine [Pyridium] 200 MG tablet 200 mg PO TID PRN PRN (Reason: Bladder Spasms) 7 Days Qty: 30 RF: 0 ketorolac 10 mg tablet 10 mg PO Q6H PRN (Reason: pain) 3 Days RF: 0 oxycodone-acetaminophen 1 TABLET tablet 2 tab PO DAILY RF: 0 citalopram 40 mg tablet 40 mg PO DAILY RF: 0 hydroxyzine HCl 25 mg tablet 25 mg PO TID PRN (Reason: Anxiety) RF: 0 Primary Care Provider: Casey Lutz NP Referrals: Natalio Parra DO [STAFF PHYSICIAN] - As soon as possible Casey Lutz NP, LEAD INSTRUCTOR/FLIGHT ATTENDANT-C [Primary Care Provider] - Disposition Disposition: Home, Self Care
[2021-07-08] MEDS: 0.9% Normal Saline 1,000 ML 150 ML IV (14:46)
[2021-07-08] MEDS: LORazepam 2 MG/ML Syringe 0.5 MG IV (14:48)
[2021-07-08] MEDS: Ketorolac 30 MG/ML Syringe IV (14:48)
[2021-07-08 14:50] LABS: Absolute Lymphocyte Count 1.29 X10^3/uL (0.83-4.51); Absolute Neutrophil Count 7.3 X10^3/uL (2.0-7.7); Basophil# 0.04 X10^3/uL; Basophil% 0.4 % (0-1); Lymphocyte # 1.29 X10^3/ul (0.83-4.51); Lymphocyte % 13.8 % (19-41); Mean Corp Hgb Conc 33.3 g/dL (32-36); Mean Corpuscular Hgb 30.8 pg (27.0-32.0); Mean Corpuscular Volume 92.3 fL (81-99); Mean Platelet Vol. 10.9 fl (6.2-12.0); Monocyte# 0.64 X10^3/uL; Monocyte% 6.8 % (0-10); NRBC Flagged by Analyzer 0 % (0-5); Neutrophil # 7.29 X10^3/uL (2.7-7.7); POSITIVE MORPHOLOGY YES; Platelet Count 334 K/mm3 (150-450); RBC Distribution Width CV 21.4 % (11.6-14.6); RBC Distribution Width SD 71.2 fl (35.1-43.9); Red Blood Count 4.55 M/mm3 (4.2-5.4); White Blood Count 9.4 K/mm3 (4.4-11.0)
[2021-07-08 15:06] LABS: Differential Indicated SCAN CRITERIA MET
[2021-07-08 15:07] LABS: Anion Gap 8 (5-15); BUN 9 mg/dL (7-18); BUN/Creat Ratio 5.7 RATIO (10-20); Calcium,Total 9.7 mg/dL (8.5-10.1); Chloride 106 mmol/L (98-107); Creatinine, Serum 1.58 mg/dL (0.55-1.02); EST Glomerular Filtration Rate 37 mL/min (>60); Est Glom Filt Rate - Afr Amer 44 mL/min (>60); Estimated Creatinine Clearance 36.78 ml/min; Glucose 123 mg/dL (74-106); Potassium 4.3 mmol/L (3.5-5.1); Sodium Level 137 mmol/L (136-145)
[2021-07-08 15:35] LABS: Anisocytosis 1+; Platelet Estimate ADEQUATE (ADEQ); Red Cell Morphology N CHROM NORMAL (NORM C&C)
[2021-07-08 17:41] VITALS: PULSE 93; RESP 17; O2SAT 98
[2021-07-08] MEDS: Electrolyte Solution/Peg's 4000 ML PO (18:06)
== END 2021-07-08 18:07 | disposition home or self-care (01) ==
PROVIDERS: Emergency Provider Emergency Medicine; PCP Nurse Practitioner Family; Visit Provider Emergency Medicine
DX: K59.00 Constipation, unspecified (principal); J44.9 Chronic obstructive pulmonary disease, unspecified; E66.01 Morbid (severe) obesity due to excess calories; Z68.42 Body mass index [BMI] 45.0-49.9, adult; F41.9 Anxiety disorder, unspecified; M19.90 Unspecified osteoarthritis, unspecified site; K90.0 Celiac disease; N18.9 Chronic kidney disease, unspecified; F32.A Depression, unspecified; K21.9 Gastro-esophageal reflux disease without esophagitis; M10.9 Gout, unspecified; K76.0 Fatty (change of) liver, not elsewhere classified; E55.9 Vitamin D deficiency, unspecified; E03.9 Hypothyroidism, unspecified; G25.81 Restless legs syndrome; I12.9 Hypertensive chronic kidney disease with stage 1 through stage 4 chronic kidney disease, or unspecified chronic kidney disease; Z87.19 Personal history of other diseases of the digestive system; Z79.899 Other long term (current) drug therapy; D50.9 Iron deficiency anemia, unspecified
CPT/HCPCS: 74176; 80048; 85025; 96361; 96374; 96375; 99284; J7030; A4216

== ENCOUNTER 2021-07-11 04:33 | Inpatient (IN) | payer MEDICARE, MEDICAID, SELFPAY ==
[2021-07-11] VITALS (11 sets, daily range): BP systolic 130–171; BP diastolic 77–94; PULSE 82–109; RESP 12–20; TEMP 36.3–37.8; O2SAT 97–100; BMI 49.2; BMI 49.4
--- NOTE | 2021-07-11 04:40 | ED.VIS.GI ---
HPI HPI - GI History of Present Illness Chief Complaint: Nausea/Vomiting Narrative Narrative: Old female presenting with diffuse abdominal pain. She states I am so sick. She keeps repeating this. She states he has been vomiting. Patient was seen on 07/08/2021 for similar symptoms. She had blood work and a CT scan and states she had some success with an enema. She was sent home with GoLytely but states she has not been able to take this due to nausea. She reports that she did not get a nausea medicine for home. She denies any fever. No urinary complaints. [facility] Medical History Anemia Anxiety Arthritis Asthma BiPAP (biphasic positive airway pressure) dependence Cardiac murmur Celiac disease Chest pain Cholelithiasis Chronic kidney disease Constipation COPD (chronic obstructive pulmonary disease) Depression Diabetes Dyspnea on exertion Gastric reflux Gout Hepatic steatosis History of cholelithiasis History of chronic back pain Hydronephrosis Hyperlipidemia Hypersomnia Hypertension Hypothyroidism Iron deficiency anemia Microcytic anemia Migraine headache Morbid obesity with BMI of 40.0-44.9, adult Non-smoker Rash Restless leg syndrome Seasonal allergies Shortness of breath on exertion Sleep apnea Vitamin B12 deficiency Vitamin D deficiency Wears glasses Home Medications albuterol sulfate 2 puff PO Q4H PRN PRN 11/21/15 [History Last Taken 01/05/21] citalopram 40 mg tablet 40 mg PO DAILY 07/27/19 [History Last Taken 01/05/21] megestrol 40 mg tablet 40 mg PO QHS 09/28/19 [History Last Taken 01/05/21] acetaminophen 650 mg tablet,extended release 1,300 mg PO QHS tab 04/02/20 [History Last Taken 01/05/21] amlodipine 5 mg tablet 5 mg PO DAILY tab 04/02/20 [History Last Taken 01/05/21] ascorbic acid (vitamin C) 500 mg tablet 500 mg PO DAILY tab 04/02/20 [History Last Taken 01/05/21] budesonide-formoterol HFA 160 mcg-4.5 mcg/actuation aerosol inhaler 2 puff INHALATION BID g 04/02/20 [History Last Taken 01/05/21] cholecalciferol (vitamin D3) 1,250 mcg (50,000 unit) capsule 50,000 unit PO QWEEK cap 04/02/20 [History Last Taken 01/05/21] cyanocobalamin (vitamin B-12) 1,000 mcg tablet 1,000 mcg PO DAILY tab 04/02/20 [History Last Taken 01/05/21] empagliflozin 25 mg tablet 25 mg PO DAILY tab 04/02/20 [History Last Taken 01/05/21] ferrous sulfate 325 mg (65 mg iron) tablet 325 mg PO DAILY 04/02/20 [History Last Taken 01/05/21] fremanezumab-vfrm 225 mg/1.5 mL subcutaneous auto-injector 225 mg SC QMONTH ml 04/02/20 [History Last Taken 01/05/21] hydroxyzine HCl 25 mg tablet 25 mg PO TID PRN tab 04/02/20 [History Last Taken 01/05/21] loratadine 10 mg tablet 10 mg PO DAILY tab 04/02/20 [History Last Taken 01/05/21] magnesium oxide 500 mg tablet 500 mg PO DAILY 04/02/20 [History Last Taken 01/05/21] meloxicam 15 mg tablet 15 mg PO DAILY tab 04/02/20 [History Last Taken 01/05/21] omeprazole 40 mg capsule,delayed release 40 mg PO DAILY cap 04/02/20 [History Last Taken 01/05/21] promethazine 25 mg tablet 25 mg PO Q6H PRN tab 04/02/20 [History Last Taken 01/05/21] topiramate 100 mg tablet 100 mg PO DAILY tab 04/02/20 [History Last Taken 01/05/21] ubrogepant 100 mg tablet 100 mg PO ONCE 04/02/20 [History Last Taken 01/05/21] rimegepant 75 mg disintegrating tablet 75 mg PO ONCE tablet 06/19/20 [History Last Taken 01/05/21] Trelegy Ellipta 1 ea INHALATION DAILY 08/14/20 [History Last Taken 01/05/21] rosuvastatin [Crestor] 40 mg PO QHS 08/14/20 [History Last Taken 01/05/21] valsartan 80 mg PO DAILY 08/14/20 [History Last Taken 01/05/21] gabapentin 100 mg capsule 300 mg PO DAILY cap 09/30/20 [History Last Taken 01/05/21] phenazopyridine [Pyridium] 200 mg PO TID PRN PRN 7 Days #30 tab 01/06/21 [Rx Last Taken Unknown] ketorolac 10 mg PO Q6H PRN 3 Days tab 01/10/21 [Rx Last Taken Unknown] oxycodone-acetaminophen 2 tab PO DAILY 01/12/21 [History Last Taken Unknown] levothyroxine 175 mcg tablet 175 mcg PO DAILY #30 tab 05/19/21 [Rx Last Taken Unknown] febuxostat 40 mg tablet 40 mg PO DAILY 05/20/21 [History Last Taken Unknown] lorazepam 2 mg tablet 2 mg PO DAILY PRN 05/20/21 [History Last Taken Unknown] lubiprostone 8 mcg capsule 8 mcg PO BID #60 cap 06/24/21 [Rx Last Taken Unknown] Allergy/AdvReac Type Severity Reaction Status Date / Time hydrochlorothiazide AdvReac Intermediate Contributes Verified 07/08/21 13:38 to gout naproxen [From Naprosyn] AdvReac Intermediate Nausea Verified 07/08/21 13:38 aspirin AdvReac Nausea Verified 07/08/21 13:38 Family History Father , Age 72 Hypertension Mother CAD (coronary artery disease) Myocardial infarction, Onset Age: 55 Hypertension Sister CAD (coronary artery disease) Brother Cancer Surgical History History of carpal tunnel release History of left heart catheterization (11/11/20) history of uterine ablation Previous section Social History Smoking Status: Never smoker alcohol intake: never substance use type: does not use caffeine: No ROS ROS ED Constitutional Constitutional ED: Denies chills or fever(s) ENT ENT ED: Denies rhinorrhea or sore throat Cardiovascular Cardiovascular: Denies chest pain or palpitations Respiratory/Chest Respiratory/Chest: Denies cough or dyspnea Gastrointestinal Gastrointestinal: Reports abdominal pain, constipation, nausea and vomiting Genitourinary Genitourinary ED: Denies dysuria or hematuria Musculoskeletal Musculoskeletal: Denies myalgias Integumentary Denies rash Neurologic Neurologic: Denies headache(s) or weakness Psychiatric Psychiatric: Reports anxiety; Denies depression EXAM Physical Exam Const Vital Signs: 07/11/21 04:35 07/11/21 06:56 Temperature 97.9 F Temperature Source Temporal Pulse Rate 102 H 83 Respiratory Rate 18 15 Blood Pressure 171/80 H 156/79 H Blood Pressure Mean 110 104 Pulse Ox 100 98 Oxygen Delivery Method Room Air Room Air Positive obese and unkempt General Appearance ED: unkempt and NAD; Negative for pallor Nutritional Appearance: obese HEENT normocephalic and atraumatic Eyes PERRL and EOMs intact bilaterally General Eye ED: Negative for pale conjunctiva or scleral icterus Resp normal respiratory effort and clear to auscultation bilaterally Cardio regular rate and regular rhythm GI non-distended and no masses Palpation: soft Back/Spine no CVA tenderness Neuro CN's II-XII intact bilaterally, moves all extremities and no sensory deficits noted Sensorium / Orientation: alert and oriented to person Psych mental status grossly normal and thought process normal Appearance: unkempt Skin General Skin Exam: Negative for jaundice or pallor MDM MDM MDM Narrative Medical decision making narrative: Presenting with diffuse abdominal pain and continued constipation. Patient states she has been vomiting. She states that she does not have any nausea medicine for home. She was unable to take the GoLytely secondary to vomiting. He states he just feels sick. IV is established. Patient given a liter of normal saline. She is given Reglan for her nausea/vomiting and Benadryl as well to help with her feelings of anxiety. On reevaluation she is sleeping. CBC shows slight leukocytosis of 15.6. Hemoglobin stable at 13.6. Platelets normal at 301. I reviewed the medical record and saw that she recently had a CT which showed constipation with normal blood work. Her leukocytosis is new. I will have to repeat imaging however the patient has a poor GFR and will have to obtain a noncontrast study. Urinalysis was checked the other day and was negative for infection. However I did repeat this today and she has a UTI. Patient was given a gram of Rocephin. Patient still complaining of nausea and was given Zofran. After speaking with the patient she states she does not feel she can go home because she is too nauseous and will be able to hold down her medications. She does also state that she is too weak to take care of her self. She states her and her mother are both sick and they can help her. CT of the abdomen pelvis is pending. I spoke with the hospitalist who states he will follow-up the CAT scan. Urine culture sent. Impression: 1. Leukocytosis 2. Hypokalemia 3. UTI 4. Nausea/vomiting 5. Constipation Lab Data Attestation: I reviewed the patient's lab results. Labs: Laboratory Results - last 24 hr 07/11/21 07/11/21 07/11/21 05:00 05:00 05:35 WBC 15.6 H RBC 4.36 Hgb 13.6 Hct 40.8 MCV 93.6 MCH 31.2 MCHC 33.3 RDW Std Deviation 70.0 H RDW Coeff of Alfredo 20.7 H Plt Count 301 MPV 11.1 Immature Gran % (Auto) 1.100 H Neut % (Auto) 83.6 H Lymph % (Auto) 11.1 L [place] % (Auto) 3.2 Eos % (Auto) 0.5 Baso % (Auto) 0.5 Absolute Neuts (auto) 13.0 H Absolute Lymphs (auto) 1.72 Nucleated RBC % 0 Differential Comment SCANNED Anisocytosis 1+ Macrocytosis 1+ Sodium 139 Potassium 3.1 L Chloride 107 Carbon Dioxide 23.0 Anion Gap 9 BUN 14 Creatinine 1.41 H Estim Creat Clear Calc 41.22 Est GFR (MDRD) Af Amer 51 L Est GFR (MDRD) Non-Af 42 L BUN/Creatinine Ratio 9.9 L Glucose 127 H Calcium 9.2 Total Bilirubin 1.10 H AST 20 ALT 23 Alkaline Phosphatase 100 Total Protein 7.5 Albumin 3.4 Globulin 4.1 Albumin/Globulin Ratio 0.8 L Lipase 164 Urine Color Yellow Urine Clarity Sl. Cloudy Urine pH 6.0 Ur Specific [place] 1.015 Urine Protein 30 H Urine Glucose (UA) Normal Urine Ketones 5 H Urine Occult Blood 25 H Urine Nitrite Positive H Urine Bilirubin Negative Urine Urobilinogen 1 H Ur Leukocyte Esterase 500 H Urine RBC 0 SEEN Urine WBC 10-25 SEEN Ur Squamous Epith Cells 0-5 SEEN Urine Bacteria 3+ Urine Mucus 0 SEEN Discharge Plan Triage Chief Complaint: Nausea/Vomiting ED Provider: Claudio Roach Dx/Rx/DC Orders Prescriptions: No Action topiramate 100 mg tablet 100 mg PO DAILY RF: 0 omeprazole 40 mg capsule,delayed release(DR/EC) 40 mg PO DAILY RF: 0 promethazine 25 mg tablet 25 mg PO Q6H PRN (Reason: Nausea) RF: 0 Jardiance 25 mg tablet 25 mg PO DAILY RF: 0 magnesium oxide 500 mg tablet 500 mg PO DAILY RF: 0 Ubrelvy 100 mg tablet 100 mg PO ONCE RF: 0 amlodipine 5 mg tablet 5 mg PO DAILY RF: 0 loratadine 10 mg tablet 10 mg PO DAILY RF: 0 cholecalciferol (vitamin D3) 1,250 mcg (50,000 unit) capsule 50,000 unit PO QWEEK RF: 0 meloxicam 15 mg tablet 15 mg PO DAILY RF: 0 cyanocobalamin (vitamin B-12) 1,000 mcg tablet 1,000 mcg PO DAILY RF: 0 acetaminophen 650 mg tablet extended release 1,300 mg PO QHS RF: 0 ascorbic acid (vitamin C) 500 mg tablet 500 mg PO DAILY RF: 0 ferrous sulfate 325 mg (65 mg iron) tablet 325 mg PO DAILY RF: 0 budesonide-formoterol [Symbicort] 160-4.5 mcg/actuation HFA aerosol inhaler 2 puff INHALATION BID RF: 0 Ajovy Autoinjector 225 mg/1.5 mL auto-injector 225 mg SC QMONTH RF: 0 rimegepant 75 mg tablet,disintegrating 75 mg PO ONCE RF: 0 gabapentin 100 mg capsule 300 mg PO DAILY RF: 0 levothyroxine 175 mcg tablet 175 mcg PO DAILY Qty: 30 RF: 6 lorazepam 2 mg tablet 2 mg PO DAILY PRNRF: 0 febuxostat 40 mg tablet 40 mg PO DAILY RF: 0 lubiprostone [Amitiza] 8 mcg capsule 8 mcg PO BID Qty: 60 RF: 1 albuterol sulfate 1 PUFF inhaler 2 puff PO Q4H PRN PRN (Reason: Shortness Of Breath) RF: 0 megestrol 40 mg tablet 40 mg PO QHS RF: 0 valsartan 80 mg tablet 80 mg PO DAILY RF: 0 rosuvastatin [Crestor] 40 mg tablet 40 mg PO QHS RF: 0 Trelegy Ellipta 100-62.5-25 mcg blister with device 1 ea INHALATION DAILY RF: 0 phenazopyridine [Pyridium] 200 MG tablet 200 mg PO TID PRN PRN (Reason: Bladder Spasms) 7 Days Qty: 30 RF: 0 ketorolac 10 mg tablet 10 mg PO Q6H PRN (Reason: pain) 3 Days RF: 0 oxycodone-acetaminophen 1 TABLET tablet 2 tab PO DAILY RF: 0 citalopram 40 mg tablet 40 mg PO DAILY RF: 0 hydroxyzine HCl 25 mg tablet 25 mg PO TID PRN (Reason: Anxiety) RF: 0 Primary Care Provider: Casey Lutz NP
[2021-07-11] MEDS: Metoclopramide 10 MG/2 ML Vial IV (04:55)
[2021-07-11] MEDS: DiphenhydrAMINE 50 MG/ML Syringe 25 MG IV (04:56)
[2021-07-11] MEDS: 0.9% Normal Saline 1,000 ML 1000 ML IV (04:58)
[2021-07-11 05:07] LABS: Absolute Lymphocyte Count 1.72 X10^3/uL (0.83-4.51); Basophil# 0.08 X10^3/uL; Basophil% 0.5 % (0-1); Eosinophil# 0.07 X10^3/uL; Eosinophils% 0.5 % (0-5); Hematocrit 40.8 % (37-47); Hemoglobin 13.6 g/dL (12.0-15.0); Lymphocyte # 1.72 X10^3/ul (0.83-4.51); Lymphocyte % 11.1 % (19-41); Mean Corp Hgb Conc 33.3 g/dL (32-36); Mean Corpuscular Hgb 31.2 pg (27.0-32.0); Mean Corpuscular Volume 93.6 fL (81-99); Mean Platelet Vol. 11.1 fl (6.2-12.0); Monocyte# 0.49 X10^3/uL; Monocyte% 3.2 % (0-10); NRBC Flagged by Analyzer 0 % (0-5); Neutrophil # 13.02 X10^3/uL (2.7-7.7); Neutrophil % 83.6 % (47-70); POSITIVE MORPHOLOGY YES; Platelet Count 301 K/mm3 (150-450); RBC Distribution Width CV 20.7 % (11.6-14.6); Red Blood Count 4.36 M/mm3 (4.2-5.4); White Blood Count 15.6 K/mm3 (4.4-11.0)
[2021-07-11 05:09] LABS: Differential Indicated SCAN CRITERIA MET
--- NOTE | 2021-07-11 05:16 | CT_ITS ---
EXAM: CT ABDOMEN AND PELVIS WITHOUT INTRAVENOUS CONTRAST CLINICAL INDICATION: abdominal pain TECHNIQUE: Helically acquired images were obtained of the abdomen and pelvis without intravenous contrast. This CT exam was performed using one or more of the following dose reduction techniques: automated exposure control, adjustment of the mA and/or kV according to patient size, and/or use of iterative reconstruction technique. This report was created using [employer] report generation technology. COMPARISON: 07/08/2021 FINDINGS: LOWER THORAX: Unremarkable. Lung bases are clear. No cardiomegaly. No significant pericardial effusion. ABDOMEN: LIVER: Liver is decreased in attenuation compatible with fatty infiltration. There are nonobstructing calyceal stones in the right kidney. GALLBLADDER AND BILE DUCTS: Unremarkable. No calcified gallstones. No gallbladder distention or wall edema. No intra- or extrahepatic biliary ductal dilation. PANCREAS: Unremarkable. No focal cystic mass. SPLEEN: Unremarkable. Normal size without focal cystic or solid mass. ADRENALS: Unremarkable. No nodules. KIDNEYS AND URETERS: See above. STOMACH AND BOWEL: There is moderate stool seen throughout the colon. The stool load has decreased slightly from reference exam. No stomach or bowel distention. No focal inflammatory change. PELVIS: APPENDIX: No evidence of acute appendicitis. BLADDER: Unremarkable. REPRODUCTIVE: Unremarkable as visualized. No mass. ABDOMEN and PELVIS: INTRAPERITONEAL SPACE: Unremarkable. No ascites or other fluid collection. No free air. BONES/JOINTS: Unremarkable. No suspicious lytic or blastic abnormality. SOFT TISSUES: Unremarkable. No discrete abdominal or pelvic wall hernia. VASCULATURE: Unremarkable. Abdominal aorta is non-dilated. LYMPH NODES: Unremarkable. No enlarged lymph nodes. CT/Abdomen/Pelvis without Cont IMPRESSION: Moderate stool throughout the colon compatible with constipation. This is mildly improved from the reference examination. No other acute abnormalities are identified. Electronically Signed: Solomon Corona MD at 8:11 EDT ,
[2021-07-11 05:25] LABS: ALB/GLOB Ratio 0.8 RATIO (0.9-2.4); AST(SGOT) 20 U/L (15-37); Alanine Aminotransfer ALT/SGPT 23 U/L (13-56); Albumin, Serum 3.4 g/dL (3.2-5.0); Alkaline Phosphatase 100 U/L (45-117); Anion Gap 9 (5-15); BUN 14 mg/dL (7-18); BUN/Creat Ratio 9.9 RATIO (10-20); Calcium,Total 9.2 mg/dL (8.5-10.1); Chloride 107 mmol/L (98-107); Creatinine, Serum 1.41 mg/dL (0.55-1.02); EST Glomerular Filtration Rate 42 mL/min (>60); Est Glom Filt Rate - Afr Amer 51 mL/min (>60); Estimated Creatinine Clearance 41.22 ml/min; Globulin 4.1 g/dL (2.2-4.2); Glucose 127 mg/dL (74-106); Lipase 164 U/L (73-393); Potassium 3.1 mmol/L (3.5-5.1); Protein, Total 7.5 g/dL (6.4-8.2); Sodium Level 139 mmol/L (136-145)
[2021-07-11 05:41] LABS: Anisocytosis 1+; Differential Comment SCANNED; Macrocytosis 1+
[2021-07-11 05:45] LABS: Mucous, Urine 0 SEEN /hpf (<or=2+); Red Blood Cells-Urine 0 SEEN /hpf (0-5)
[2021-07-11 06:09] LABS: Color, Urine Yellow (Yellow); Glucose, Dipstick Normal (Normal); Ketone-Dipstick 5 mg/dl (Negative); Leukocyte Esterase-Dipstick 500 /ul (Negative); Nitrite-Dipstick Positive (Negative); Occult Blood-Urine 25 /ul (Negative); Protein-Dipstick 30 mg/dl (Negative); Specific Gravity, Urine 1.015 (1.002-1.030); Urine Bilirubin Dipstick Negative (Negative); Urine Clarity Sl. Cloudy (Clear); Urine Urobilinogen 1 mg/dl (Normal)
[2021-07-11 06:15] LABS: Bacteria 3+ /hpf (None Seen); Squamous Epithelial Cells - UA 0-5 SEEN /hpf (5-10); White Blood Cells 10-25 SEEN /hpf (0-5)
[2021-07-11] MEDS: Ondansetron 4 MG/2 ML Vial IV ×3 (06:19→20:57)
[2021-07-11] MEDS: Ceftriaxone 1 GM/50 ML BAG IV (06:55)
--- NOTE | 2021-07-11 08:00 | HP.PCM.HOS_ITS ---
HPI - General General Date of Admission: 07/11/21 Date of Service: 07/11/21 Chief Complaint: nausea and vomiting HPI Narrative COURTNEY CARMEN, is a 50 F who presents with intractable N/V. Was here on 07/08 and noted to have profound constipation on CT. During that visit, she reported being constipated for 1 month. She received sopasuds enema and large evacuations. Since being at home she has been unable to keep anything down. Also complaining of dysuria. She presented to the ED with intractable N/V, headache, fever, shortness of breath and unable to care for herself. Her is currently sick with what she describe as an infection of his nose. She is unvaccinated for COVID 19 and has not had COVID 19, that she is aware of. In the ED today, she was found to have a UTI on UA and received CTX. [facility] Medical History Anemia Anxiety Arthritis Asthma BiPAP (biphasic positive airway pressure) dependence Cardiac murmur Celiac disease Chest pain Cholelithiasis Chronic kidney disease Constipation COPD (chronic obstructive pulmonary disease) Depression Diabetes Dyspnea on exertion Gastric reflux Gout Hepatic steatosis History of cholelithiasis History of chronic back pain Hydronephrosis Hyperlipidemia Hypersomnia Hypertension Hypothyroidism Iron deficiency anemia Microcytic anemia Migraine headache Morbid obesity with BMI of 40.0-44.9, adult Non-smoker Rash Restless leg syndrome Seasonal allergies Shortness of breath on exertion Sleep apnea Vitamin B12 deficiency Vitamin D deficiency Wears glasses Home Medications albuterol sulfate 2 puff PO Q4H PRN PRN 11/21/15 [History Last Taken 01/05/21] citalopram 40 mg tablet 40 mg PO DAILY 07/27/19 [History Last Taken 01/05/21] megestrol 40 mg tablet 40 mg PO QHS 09/28/19 [History Last Taken 01/05/21] acetaminophen 650 mg tablet,extended release 1,300 mg PO QHS tab 04/02/20 [History Last Taken 01/05/21] amlodipine 5 mg tablet 5 mg PO DAILY tab 04/02/20 [History Last Taken 01/05/21] ascorbic acid (vitamin C) 500 mg tablet 500 mg PO DAILY tab 04/02/20 [History Last Taken 01/05/21] budesonide-formoterol HFA 160 mcg-4.5 mcg/actuation aerosol inhaler 2 puff INHALATION BID g 04/02/20 [History Last Taken 01/05/21] cholecalciferol (vitamin D3) 1,250 mcg (50,000 unit) capsule 50,000 unit PO QWEEK cap 04/02/20 [History Last Taken 01/05/21] cyanocobalamin (vitamin B-12) 1,000 mcg tablet 1,000 mcg PO DAILY tab 04/02/20 [History Last Taken 01/05/21] empagliflozin 25 mg tablet 25 mg PO DAILY tab 04/02/20 [History Last Taken 01/05/21] ferrous sulfate 325 mg (65 mg iron) tablet 325 mg PO DAILY 04/02/20 [History Las t Taken 01/05/21] fremanezumab-vfrm 225 mg/1.5 mL subcutaneous auto-injector 225 mg SC QMONTH ml 04/02/20 [History Last Taken 01/05/21] hydroxyzine HCl 25 mg tablet 25 mg PO TID PRN tab 04/02/20 [History Last Taken 01/05/21] loratadine 10 mg tablet 10 mg PO DAILY tab 04/02/20 [History Last Taken 01/05/21] magnesium oxide 500 mg tablet 500 mg PO DAILY 04/02/20 [History Last Taken 01/05/21] meloxicam 15 mg tablet 15 mg PO DAILY tab 04/02/20 [History Last Taken 01/05/21] omeprazole 40 mg capsule,delayed release 40 mg PO DAILY cap 04/02/20 [History Last Taken 01/05/21] promethazine 25 mg tablet 25 mg PO Q6H PRN tab 04/02/20 [History Last Taken 01/05/21] topiramate 100 mg tablet 100 mg PO DAILY tab 04/02/20 [History Last Taken 01/05/21] ubrogepant 100 mg tablet 100 mg PO ONCE 04/02/20 [History Last Taken 01/05/21] rimegepant 75 mg disintegrating tablet 75 mg PO ONCE tablet 06/19/20 [History Last Taken 01/05/21] Trelegy Ellipta 1 ea INHALATION DAILY 08/14/20 [History Last Taken 01/05/21] rosuvastatin [Crestor] 40 mg PO QHS 08/14/20 [History Last Taken 01/05/21] valsartan 80 mg PO DAILY 08/14/20 [History Last Taken 01/05/21] gabapentin 100 mg capsule 300 mg PO DAILY cap 09/30/20 [History Last Taken 01/05/21] phenazopyridine [Pyridium] 200 mg PO TID PRN PRN 7 Days #30 tab 01/06/21 [Rx Last Taken Unknown] ketorolac 10 mg PO Q6H PRN 3 Days tab 01/10/21 [Rx Last Taken Unknown] oxycodone-acetaminophen 2 tab PO DAILY 01/12/21 [History Last Taken Unknown] levothyroxine 175 mcg tablet 175 mcg PO DAILY #30 tab 05/19/21 [Rx Last Taken Unknown] febuxostat 40 mg tablet 40 mg PO DAILY 05/20/21 [History Last Taken Unknown] lorazepam 2 mg tablet 2 mg PO DAILY PRN 05/20/21 [History Last Taken Unknown] lubiprostone 8 mcg capsule 8 mcg PO BID #60 cap 06/24/21 [Rx Last Taken Unknown] Allergy/AdvReac Type Severity Reaction Status Date / Time hydrochlorothiazide AdvReac Intermediate Contributes Verified 07/08/21 13:38 to gout naproxen [From Naprosyn] AdvReac Intermediate Nausea Verified 07/08/21 13:38 aspirin AdvReac Nausea Verified 07/08/21 13:38 Family History Father , Age 72 Hypertension Mother CAD (coronary artery disease) Myocardial infarction, Onset Age: 55 Hypertension Sister CAD (coronary artery disease) Brother Cancer Surgical History History of carpal tunnel release History of left heart catheterization (11/11/20) history of uterine ablation Previous section Social History Smoking Status: Never smoker alcohol intake: never substance use type: does not use caffeine: No ROS ROS Narrative All review of systems were negative except as mentioned above in the history of present illness and the other review of systems. Vital Signs Vital Signs Vital Signs: 07/11/21 04:35 07/11/21 06:56 Temperature 36.6 C Temperature Source Temporal Pulse Rate 102 H 83 Respiratory Rate 18 15 Blood Pressure 171/80 H 156/79 H Blood Pressure Mean 110 104 Pulse Ox 100 98 Oxygen Delivery Method Room Air Room Air Weight Weight: 130.181 kg Body Mass Index (BMI) 49.2 Physical Exam Const alert and oriented x3 Constitutional Narrative: appears older than stated age. listless. General Appearance: cooperative HEENT normocephalic, head/scalp atraumatic, hearing grossly normal bilaterally and moist oral mucous membranes Eyes PERRL Resp normal respiratory effort, no retractions, no use of accessory muscles and clear to auscultation bilaterally Cardio regular rate, regular rhythm, S1 normal heart sound and S2 normal heart sound GI normal to inspection, nondistended, normoactive bowel sounds, soft to palpation, non-tender and non-distended GI Narrative: obese Extremity normal to inspection and full ROM Neuro Sensorium / Orientation: awake and alert Psych affect normal Results Lab / Micro Data Result Diagrams: 07/11/21 05:00 07/11/21 05:00 Labs: Laboratory Results - last 24 hr 07/11/21 05:00: WBC 15.6 H, RBC 4.36, Hgb 13.6, Hct 40.8, MCV 93.6, MCH 31.2, MCHC 33.3, RDW Std Deviation 70.0 H, RDW Coeff of Alfredo 20.7 H, Plt Count 301, MPV 11.1, Immature Gran % (Auto) 1.100 H, Neut % (Auto) 83.6 H, Lymph % (Auto) 11.1 L, Keith % (Auto) 3.2, Eos % (Auto) 0.5, Baso % (Auto) 0.5, Absolute Neuts (auto) 13.0 H, Absolute Lymphs (auto) 1.72, Nucleated RBC % 0, Differential Comment SCANNED, Anisocytosis 1+, Macrocytosis 1+ 07/11/21 05:00: Sodium 139, Potassium 3.1 L, Chloride 107, Carbon Dioxide 23.0, Anion Gap 9, BUN 14, Creatinine 1.41 H, Estim Creat Clear Calc 41.22, Est GFR ( MDRD) Af Amer 51 L, Est GFR (MDRD) Non-Af 42 L, BUN/Creatinine Ratio 9.9 L, Glucose 127 H, Calcium 9.2, Total Bilirubin 1.10 H, AST 20, ALT 23, Alkaline Phosphatase 100, Total Protein 7.5, Albumin 3.4, Globulin 4.1, Albumin/Globulin Ratio 0.8 L, Lipase 164 07/11/21 05:35: Urine Color Yellow, Urine Clarity Sl. Cloudy, Urine pH 6.0, Ur Specific [place] 1.015, Urine Protein 30 H, Urine Glucose (UA) Normal, Urine Ket ones 5 H, Urine Occult Blood 25 H, Urine Nitrite Positive H, Urine Bilirubin Negative, Urine Urobilinogen 1 H, Ur Leukocyte Esterase 500 H, Urine RBC 0 SEEN, Urine WBC 10-25 SEEN, Ur Squamous Epith Cells 0-5 SEEN, Urine Bacteria 3+, Urine Mucus 0 SEEN Assessment & Plan Assessment/Plan (1) Constipation: (2) Nausea: (3) Abdominal pain: (4) Cholelithiasis: PLAN: 1. UTI * on CTX * follow up UCx 2. Constipation * bowel regimen * no narcotics * complicating her N/V 3. Intractable N/V * due to constipation, but also from UTI and perhaps migraine 4. Migraine * chronic * ketoralac * NO NARCOTICS 5. Debility * PT OT eval * per [facility] status 6. Unvaccinated for COVID 19 * given some of her vague symptoms and current illness of her , check COVID 19 * strongly advised she get vaccinated for COVID 19. Emphasized the cognitive dissonance of not wanting the COVID 19 vaccine, but wanting other medical treatments. * encouraged pt to think about it, and if she is agreeable, we can give her the 1st vaccine while she is in the hosptial 7. Morbid obesity * BMI 49.3 * complicates care and recovery * consider bariatric eval as outpt, though I feel this would be limited by pt's lack of motivation. 8. VTE prophylaxis: LMWH 9. Code status: addressed with pt, DNRCCA, DNI. Advised pt that she can change her mind at any time and her code status would then change. Charges/Coding Visit Charges Inpatient E&M: 01479 Init Hosp L3
[2021-07-11] MEDS: Ketorolac 30 MG/ML Syringe IV (08:11)
--- NOTE | 2021-07-11 09:40 | EKG12_ITS ---
Test Reason : CP Blood Pressure : / mmHG Vent. Rate : 072 BPM Atrial Rate : 300 BPM P-R Int : 000 ms QRS Dur : 086 ms QT Int : 368 ms P-R-T Axes : 036 000 191 degrees QTc Int : 402 ms Atrial flutter with variable A-V block ST & T wave abnormality, consider lateral ischemia Abnormal ECG When compared with ECG of 08-JUN-2021 12:18, Atrial flutter has replaced Sinus rhythm Confirmed by MIGUEL GONZALEZ, MAGALI ([id number]), editor city ZANDER MAYER ([id number]) on 07/14/2021 6:53:04 AM Referred By: CAROLINE Confirmed By:MAGALI RIVERA MD
[2021-07-11] MEDS: Polyethylene Glycol 3350 17 GM PACKET PO (10:44)
[2021-07-11] MEDS: Bisacodyl 10 MG Suppository RC (10:45)
[2021-07-11] MEDS: amLODIPine 5 MG Tablet PO (10:46)
[2021-07-11] MEDS: Enoxaparin 40 MG/0.4 ML Syringe SC (11:10)
[2021-07-11] MEDS: Gabapentin 300 MG Capsule PO (11:10)
[2021-07-11 11:35] LABS: Bedside Glucose 113 mg/dL (74-106)
[2021-07-11] MEDS: 0.9% Saline Lock 10 ML Syringe IV ×3 (13:00→20:57)
[2021-07-11] MEDS: Ipratropium/Albuterol Sulfate 3 ML AMPUL.NEB INHALATION ×2 (13:14→19:00)
--- NOTE | 2021-07-11 13:45 | CASEMGMT ---
RN CM Face to Face with patient for initial transition planning/care coordination assessment. RN CM introduced self and role at [facility]. Patient lying in bed, alert and oriented. Patient willing to participate in assessment and is able to answer all questions appropriately. Care providers, pharmacy, and demographics verified. Patient wishes to discharge home, denies need for home health at this time. Patient states she has no further needs or concerns at this time. CM to follow for discharge planning needs that may arise. PCP: Nelda Specialists: Azalia, wringer machine operator; Jacky, neuro; King Endo; Kal, pulm; Basali, pain Preferred Pharmacy: [facility] Insurance: [employer] Prescription Benefit: yes Living Will/HPOA: none LNOK: Living Arrangements: Bradley lives with in a single story home with 3 steps to enter the home. Patient states she is independent at home. Transportation: self, , mother DME/HHC: Patient states she has bipap and pulse ox at home. No previous HHC or SNF. Disposition Plan: Patient to discharge home with family support and follow-up plans in place. Franci FUNG, RN, CM
[2021-07-11] MEDS: proCHLORPERazine 10 MG/2 ML Vial 5 MG IV ×2 (15:21→20:57)
[2021-07-11] MEDS: Topiramate 100 MG Tablet PO (16:06)
[2021-07-11 16:25] LABS: Bedside Glucose 121 mg/dL (74-106)
[2021-07-11] MEDS: Ketorolac 15 MG/ML Vial IV (18:26)
[2021-07-11] MEDS: Budesonide Respules 0.5 MG/2 ML AMPUL.NEB. INHALATION (19:00)
[2021-07-11] MEDS: Megestrol 40 MG Tablet PO (20:56)
[2021-07-11] MEDS: Rosuvastatin 20 MG Tablet 40 MG PO (20:56)
[2021-07-12] MEDS: Ketorolac 15 MG/ML Vial IV ×2 (00:06→07:59)
[2021-07-12] MEDS: Gabapentin 300 MG Capsule PO (01:46)
[2021-07-12] MEDS: Albuterol 2.5 MG/3 ML VIAL.NEB. INHALATION (02:00)
[2021-07-12 02:01] VITALS: PULSE 88; RESP 18
[2021-07-12 03:00] VITALS: BP 148/78; PULSE 108; PULSE 112; RESP 20; TEMP 36.8; O2SAT 97
[2021-07-12] MEDS: proCHLORPERazine 10 MG/2 ML Vial 5 MG IV (04:57)
[2021-07-12] MEDS: Levothyroxine 175 MCG Tablet PO (04:59)
[2021-07-12] MEDS: Dicyclomine 20 MG/2 ML Vial IM (05:21)
[2021-07-12 06:36] LABS: Bedside Glucose 122 mg/dL (74-106)
[2021-07-12 06:57] LABS: Absolute Lymphocyte Count 1.17 X10^3/uL (0.83-4.51); Absolute Neutrophil Count 6.8 X10^3/uL (2.0-7.7); Basophil# 0.04 X10^3/uL; Basophil% 0.5 % (0-1); Eosinophil# 0.02 X10^3/uL; Eosinophils% 0.2 % (0-5); Hematocrit 37.3 % (37-47); Hemoglobin 12.2 g/dL (12.0-15.0); Lymphocyte # 1.17 X10^3/ul (0.83-4.51); Lymphocyte % 13.7 % (19-41); Mean Corp Hgb Conc 32.7 g/dL (32-36); Mean Corpuscular Hgb 31.3 pg (27.0-32.0); Mean Corpuscular Volume 95.6 fL (81-99); Mean Platelet Vol. 11.5 fl (6.2-12.0); Monocyte# 0.47 X10^3/uL; Monocyte% 5.5 % (0-10); NRBC Flagged by Analyzer 0 % (0-5); Neutrophil # 6.78 X10^3/uL (2.7-7.7); POSITIVE MORPHOLOGY YES; Platelet Count 258 K/mm3 (150-450); RBC Distribution Width CV 21.1 % (11.6-14.6); RBC Distribution Width SD 73.1 fl (35.1-43.9); White Blood Count 8.6 K/mm3 (4.4-11.0)
[2021-07-12 07:00] VITALS: PULSE 93
[2021-07-12 07:12] LABS: Differential Indicated SCAN CRITERIA MET
[2021-07-12] MEDS: Ipratropium/Albuterol Sulfate 3 ML AMPUL.NEB INHALATION (07:12)
[2021-07-12] MEDS: Budesonide Respules 0.5 MG/2 ML AMPUL.NEB. INHALATION (07:12)
[2021-07-12 07:15] VITALS: PULSE 94; RESP 18; O2SAT 95
[2021-07-12 07:33] LABS: Anion Gap 9 (5-15); BUN 9 mg/dL (7-18); BUN/Creat Ratio 7.4 RATIO (10-20); Calcium,Total 8.5 mg/dL (8.5-10.1); Chloride 112 mmol/L (98-107); Creatinine, Serum 1.21 mg/dL (0.55-1.02); EST Glomerular Filtration Rate 50 mL/min (>60); Est Glom Filt Rate - Afr Amer 60 mL/min (>60); Estimated Creatinine Clearance 48.03 ml/min; Glucose 123 mg/dL (74-106); Potassium 3.1 mmol/L (3.5-5.1); Sodium Level 142 mmol/L (136-145)
[2021-07-12 07:45] LABS: Anisocytosis 1+
--- NOTE | 2021-07-12 07:51 | PN.HOSP_ITS ---
Subjective Subjective Feeling much better. Didn't sleep last night due to pain in LE. Pt has known neuropathy and takes gabapentin. Objective Data Objective Data Vital Signs: Vital Signs Temp Pulse Resp BP Pulse Ox 36.8 C 94 18 148/78 H 97 07/12/21 03:00 07/12/21 07:15 07/12/21 07:15 07/12/21 03:00 07/12/21 03:00 Oxygen Delivery Method Room Air Weight: 130.6 kg Body Mass Index (BMI) 49.4 Intake & Output: Intake and Output for Last 24 Hours 07/10/21 07/11/21 07/12/21 23:59 23:59 23:59 Intake Total 2650 / 2975 325 / 325 Balance 2650 / 2975 325 / 325 Lab / Micro Data Result Diagrams: 07/12/21 06:14 07/12/21 06:14 Labs: Laboratory Results - last 24 hr 07/11/21 11:09: POC Glucose 113 H 07/11/21 16:04: POC Glucose 121 H 07/12/21 06:14: WBC 8.6, RBC 3.90 L, Hgb 12.2, Hct 37.3, MCV 95.6, MCH 31.3, MCHC 32.7, RDW Std Deviation 73.1 H, RDW Coeff of Alfredo 21.1 H, Plt Count 258, MPV 11.5, Immature Gran % (Auto) 1.100 H, Neut % (Auto) 79.0 H, Lymph % (Auto) 13.7 L, [place] % (Auto) 5.5, Eos % (Auto) 0.2, Baso % (Auto) 0.5, Absolute Neuts (auto) 6.8, Absolute Lymphs (auto) 1.17, Nucleated RBC % 0, Anisocytosis 1+ 07/12/21 06:14: Sodium 142, Potassium 3.1 L, Chloride 112 H, Carbon Dioxide 21.0, Anion Gap 9, BUN 9, Creatinine 1.21 H, Estim Creat Clear Calc 48.03, Est GFR (MDRD) Af Amer 60, Est GFR (MDRD) Non-Af 50 L, BUN/Creatinine Ratio 7.4 L, Glucose 123 H, Calcium 8.5 07/12/21 06:28: POC Glucose 122 H Micro: Microbiology 07/11/21 Unknown Nasal Secretion SARS-CoV-2 Antigen (Rapid) - Final Radiography Diagnostic Testing: Radiology Impression Abdomen/Pelvis CT 07/11/21 05:16 IMPRESSION: Moderate stool throughout the colon compatible with constipation. This is mildly improved from the reference examination. No other acute abnormalities are identified. Electronically Signed: Solomon Corona MD at 8:11 EDT , Physical Exam Const alert Constitutional Narrative: standing on her own, sat down on her own without any difficulty. appears in much better spirits today. Resp normal respiratory effort, no retractions, no use of accessory muscles and clear to auscultation bilaterally Cardio regular rate, regular rhythm, S1 normal heart sound and S2 normal heart sound GI normal to inspection, nondistended, normoactive bowel sounds, soft to palpation, non-tender and non-distended Assessment & Plan Assessment/Plan (1) Constipation: (2) Nausea: (3) Abdominal pain: (4) Cholelithiasis: PLAN: 1. UTI * on CTX * follow up UCx * change to nitrofurantoin for 5 days 2. Constipation * bowel regimen * no narcotics * complicating her N/V 3. Intractable N/V * due to constipation, but also from UTI and perhaps migraine 4. Migraine * chronic * ketoralac * NO NARCOTICS 5. Debility * PT OT eval * poor performance status at baseline 6. Unvaccinated for COVID 19 * Rapid COVID 19 negative * strongly advised she get vaccinated for COVID 19. Emphasized the cognitive dissonance of not wanting the COVID 19 vaccine, but wanting other medical treatments. * encouraged pt to think about it, and if she is agreeable, we can give her the 1st vaccine while she is in the hospital 7. Morbid obesity * BMI 49.3 * complicates care and recovery * consider bariatric eval as outpt, though I feel this would be limited by pt's lack of motivation. 8. VTE prophylaxis: LMWH 9. Code status: addressed with pt, DNRCCA, DNI. Advised pt that she can change her mind at any time and her code status would then change. 10. Atypical chest pain * 2/2 costochondritis/musculoskeletal. Complicated by panic attack DC home.
[2021-07-12] MEDS: Potassium Chloride Oral Tablet 20 MEQ 40 MEQ PO (07:59)
[2021-07-12 08:00] VITALS: BP 164/85; PULSE 102; RESP 16; TEMP 36.6; O2SAT 97
[2021-07-12] MEDS: Loratadine 10 MG Tablet PO (08:00)
[2021-07-12] MEDS: Citalopram 40 MG TABLET PO (08:00)
[2021-07-12] MEDS: Empagliflozin 25 MG Tablet PO (08:01)
[2021-07-12] MEDS: Losartan Potassium 50 MG Tablet PO (08:01)
[2021-07-12] MEDS: Polyethylene Glycol 3350 17 GM PACKET PO (08:02)
[2021-07-12] MEDS: amLODIPine 5 MG Tablet PO (08:02)
[2021-07-12] MEDS: Pantoprazole Sodium 40 MG Tablet PO (08:02)
[2021-07-12] MEDS: Enoxaparin 40 MG/0.4 ML Syringe SC (08:02)
[2021-07-12] MEDS: Topiramate 100 MG Tablet PO (08:03)
[2021-07-12 08:16] LABS: Magnesium 2.3 mg/dL (1.6-2.6)
[2021-07-12] MEDS: Ceftriaxone 1 GM/50 ML BAG IV (09:47)
--- NOTE | 2021-07-12 10:01 | PCM.DC ---
Discharge Instructions Diet Discharge Diet: 1999 Calorie Control Diet Follow Up Care Test Results: Test results from this visit will be discussed in further detail at your follow-up appointment, if applicable. Discharge Plan Admission Admit Date/Time: 07/11/21 08:17 Primary Reason for Your Visit: UTI Attending Provider: Anam Roldan Primary Care Provider: Casey Lutz TRANSPORTATION COORDINATOR Discharge Orders/Prescriptions Prescriptions: New nitrofurantoin monohyd/m-cryst [Macrobid] 100 mg capsule 100 mg PO BID Qty: 10 RF: 0 ondansetron 4 mg tablet,disintegrating 4 mg PO Q8H PRN (Reason: nausea and vomiting) Qty: 10 RF: 0 Continued topiramate 100 mg tablet 100 mg PO DAILY RF: 0 omeprazole 40 mg capsule,delayed release(DR/EC) 40 mg PO DAILY RF: 0 promethazine 25 mg tablet 25 mg PO Q6H PRN (Reason: Nausea) RF: 0 Jardiance 25 mg tablet 25 mg PO DAILY RF: 0 magnesium oxide 500 mg tablet 500 mg PO DAILY RF: 0 Ubrelvy 100 mg tablet 100 mg PO ONCE RF: 0 amlodipine 5 mg tablet 5 mg PO DAILY RF: 0 loratadine 10 mg tablet 10 mg PO DAILY RF: 0 meloxicam 15 mg tablet 15 mg PO DAILY RF: 0 cyanocobalamin (vitamin B-12) 1,000 mcg tablet 1,000 mcg PO DAILY RF: 0 acetaminophen 650 mg tablet extended release 1,300 mg PO QHS RF: 0 ascorbic acid (vitamin C) 500 mg tablet 500 mg PO DAILY RF: 0 ferrous sulfate 325 mg (65 mg iron) tablet 325 mg PO DAILY RF: 0 budesonide-formoterol [Symbicort] 160-4.5 mcg/actuation HFA aerosol inhaler 2 puff INHALATION BID RF: 0 Ajovy Autoinjector 225 mg/1.5 mL auto-injector 225 mg SC QMONTH RF: 0 rimegepant 75 mg tablet,disintegrating 75 mg PO ONCE RF: 0 gabapentin 100 mg capsule 300 mg PO DAILY RF: 0 levothyroxine 175 mcg tablet 175 mcg PO DAILY Qty: 30 RF: 6 lorazepam 2 mg tablet 2 mg PO DAILY PRN (Reason: Anxiety) RF: 0 febuxostat 40 mg tablet 40 mg PO DAILY RF: 0 lubiprostone [Amitiza] 8 mcg capsule 8 mcg PO BID Qty: 60 RF: 1 albuterol sulfate 1 PUFF inhaler 2 puff PO Q4H PRN PRN (Reason: Shortness Of Breath) RF: 0 megestrol 40 mg tablet 40 mg PO QHS RF: 0 valsartan 80 mg tablet 160 mg PO DAILY RF: 0 rosuvastatin [Crestor] 40 mg tablet 40 mg PO QHS RF: 0 Trelegy Ellipta 100-62.5-25 mcg blister with device 1 ea INHALATION DAILY RF: 0 phenazopyridine [Pyridium] 200 MG tablet 200 mg PO TID PRN PRN (Reason: Bladder Spasms) 7 Days Qty: 30 RF: 0 ketorolac 10 mg tablet 10 mg PO Q6H PRN (Reason: pain) 3 Days RF: 0 citalopram 40 mg tablet 40 mg PO DAILY RF: 0 hydroxyzine HCl 25 mg tablet 25 mg PO TID PRN (Reason: Anxiety) RF: 0 Discontinued lorazepam 2 mg tablet RF: 0 lorazepam 2 mg tablet RF: 0 No Action cholecalciferol (vitamin D3) 1,250 mcg (50,000 unit) capsule 50,000 unit PO QWEEK RF: 0 Referrals / Follow Up: Casey Lutz NP, TRANSPORTATION COORDINATOR-C [Primary Care Provider] - Within 1 Week Disposition Disposition (needs filled in before D/C Order can be placed): Home, Self Care
[2021-07-12 10:08] VITALS: BP 160/90; PULSE 104; RESP 16; O2SAT 97
--- NOTE | 2021-07-12 10:09 | DS.PCM_ITS ---
Providers Date of Admission: 07/11/21 Primary Care Physician: Casey Lutz, ARMATURE VARNISHER-C Reason For Visit: CONSTIPATION, DEBILITY, UTI Diagnosis Discharge Diagnosis (1) Constipation: Status: Acute Code(s): K59.00 - Constipation, unspecified (2) Nausea: Status: Acute Code(s): R11.0 - Nausea (3) UTI (urinary tract infection): Status: Acute Code(s): N39.0 - Urinary tract infection, site not specified Medications at Discharge Home Medications albuterol sulfate 2 puff PO Q4H PRN PRN 11/21/15 citalopram 40 mg tablet 40 mg PO DAILY 07/27/19 megestrol 40 mg tablet 40 mg PO QHS 09/28/19 acetaminophen 650 mg tablet,extended release 1,300 mg PO QHS tab 04/02/20 amlodipine 5 mg tablet 5 mg PO DAILY tab 04/02/20 ascorbic acid (vitamin C) 500 mg tablet 500 mg PO DAILY tab 04/02/20 budesonide-formoterol HFA 160 mcg-4.5 mcg/actuation aerosol inhaler 2 puff INHALATION BID g 04/02/20 cholecalciferol (vitamin D3) 1,250 mcg (50,000 unit) capsule 50,000 unit PO QWEEK cap 04/02/20 cyanocobalamin (vitamin B-12) 1,000 mcg tablet 1,000 mcg PO DAILY tab 04/02/20 empagliflozin 25 mg tablet 25 mg PO DAILY tab 04/02/20 ferrous sulfate 325 mg (65 mg iron) tablet 325 mg PO DAILY 04/02/20 fremanezumab-vfrm 225 mg/1.5 mL subcutaneous auto-injector 225 mg SC QMONTH ml 04/02/20 hydroxyzine HCl 25 mg tablet 25 mg PO TID PRN tab 04/02/20 loratadine 10 mg tablet 10 mg PO DAILY tab 04/02/20 magnesium oxide 500 mg tablet 500 mg PO DAILY 04/02/20 meloxicam 15 mg tablet 15 mg PO DAILY tab 04/02/20 omeprazole 40 mg capsule,delayed release 40 mg PO DAILY cap 04/02/20 promethazine 25 mg tablet 25 mg PO Q6H PRN tab 04/02/20 topiramate 100 mg tablet 100 mg PO DAILY tab 04/02/20 ubrogepant 100 mg tablet 100 mg PO ONCE 04/02/20 rimegepant 75 mg disintegrating tablet 75 mg PO ONCE tablet 06/19/20 Trelegy Ellipta 1 ea INHALATION DAILY 08/14/20 rosuvastatin [Crestor] 40 mg PO QHS 08/14/20 valsartan 160 mg PO DAILY 08/14/20 gabapentin 100 mg capsule 300 mg PO DAILY cap 09/30/20 phenazopyridine [Pyridium] 200 mg PO TID PRN PRN 7 Days #30 tab 01/06/21 ketorolac 10 mg PO Q6H PRN 3 Days tab 01/10/21 levothyroxine 175 mcg tablet 175 mcg PO DAILY #30 tab 05/19/21 febuxostat 40 mg tablet 40 mg PO DAILY 05/20/21 lorazepam 2 mg tablet 2 mg PO DAILY PRN 05/20/21 lubiprostone 8 mcg capsule 8 mcg PO BID #60 cap 06/24/21 nitrofurantoin monohyd/m-cryst [Macrobid] 100 mg PO BID #10 cap 07/12/21 ondansetron 4 mg PO Q8H PRN #10 tab 07/12/21 Hospital Course Operations None Procedures None Summary of Care Provided Minutes Spent on Discharge: 32 Hospital Course: Patient presents with nausea and vomiting. Patient was found to have urinary tract infection and started on ceftriaxone. Patient was had some vague complaints and was checked for COVID-19 and that was negative. Today, the patient is feeling much better but states that she did not sleep well last night. Patient is already on gabapentin for neuropathic pain. I did recommend acetaminophen for her which is actually already on her home medication list for at night. Patient is otherwise doing well and stable to be discharged. I will discharge patient with Macrobid for her urinary tract infection. Patient will not require any home-going needs. Given patient's initial appearance and how ill she appeared, it was suspect the patient would require a several day hospitalization, however, the patient has improved much sooner than anticipated. 1. UTI on CTX follow up UCx change to nitrofurantoin for 5 days 2. Constipation bowel regimen no narcotics complicating her N/V 3. Intractable N/V due to constipation, but also from UTI and perhaps migraine 4. Migraine chronic ketoralac NO NARCOTICS 5. Debility PT OT eval poor performance status at baseline 6. Unvaccinated for COVID 19 Rapid COVID 19 negative strongly advised she get vaccinated for COVID 19. Emphasized the cognitive dissonance of not wanting the COVID 19 vaccine, but wanting other medical treatments. encouraged pt to think about it, and if she is agreeable, we can give her the 1st vaccine while she is in the hospital 7. Morbid obesity BMI 49.3 complicates care and recovery consider bariatric eval as outpt, though I feel this would be limited by pt's lack of motivation. 8. Atypical chest pain 2/2 costochondritis/musculoskeletal. Complicated by panic attack Weight / BMI Weight Weight: 130.6 kg Body Mass Index (BMI) 49.4 ABG / Lab / Microbiology Data Result Diagrams: 07/12/21 06:14 07/12/21 06:14 Laboratory: Laboratory Results - last 24 hr 07/11/21 11:09: POC Glucose 113 H 07/11/21 16:04: POC Glucose 121 H 07/12/21 06:14: WBC 8.6, RBC 3.90 L, Hgb 12.2, Hct 37.3, MCV 95.6, MCH 31.3, MCHC 32.7, RDW Std Deviation 73.1 H, RDW Coeff of Alfredo 21.1 H, Plt Count 258, MPV 11.5, Immature Gran % (Auto) 1.100 H, Neut % (Auto) 79.0 H, Lymph % (Auto) 13.7 L, [place] % (Auto) 5.5, Eos % (Auto) 0.2, Baso % (Auto) 0.5, Absolute Neuts (auto) 6.8, Absolute Lymphs (auto) 1.17, Nucleated RBC % 0, Anisocytosis 1+ 07/12/21 06:14: Sodium 142, Potassium 3.1 L, Chloride 112 H, Carbon Dioxide 21.0, Anion Gap 9, BUN 9, Creatinine 1.21 H, Estim Creat Clear Calc 48.03, Est GFR (MDRD) Af Amer 60, Est GFR (MDRD) Non-Af 50 L, BUN/Creatinine Ratio 7.4 L, Glucose 123 H, Calcium 8.5 07/12/21 06:14: Magnesium 2.3 07/12/21 06:28: POC Glucose 122 H Microbiology: Microbiology 07/11/21 Unknown Nasal Secretion SARS-CoV-2 Antigen (Rapid) - Final D/C Instructions Discharge Diet: 1999 Calorie Control Diet Meaningful Use Info Meaningful Use Diagnoses (Choose all that apply): None applicable Discharge Plan Admission Admit Date/Time: 07/11/21 08:17 Primary Reason for Your Visit: UTI Attending Provider: Anam Roldan Primary Care Provider: Casey Lutz ARMATURE VARNISHER Discharge Orders/Prescriptions Prescriptions: New nitrofurantoin monohyd/m-cryst [Macrobid] 100 mg capsule 100 mg PO BID Qty: 10 RF: 0 ondansetron 4 mg tablet,disintegrating 4 mg PO Q8H PRN (Reason: nausea and vomiting) Qty: 10 RF: 0 Continued topiramate 100 mg tablet 100 mg PO DAILY RF: 0 omeprazole 40 mg capsule,delayed release(DR/EC) 40 mg PO DAILY RF: 0 promethazine 25 mg tablet 25 mg PO Q6H PRN (Reason: Nausea) RF: 0 Jardiance 25 mg tablet 25 mg PO DAILY RF: 0 magnesium oxide 500 mg tablet 500 mg PO DAILY RF: 0 Ubrelvy 100 mg tablet 100 mg PO ONCE RF: 0 amlodipine 5 mg tablet 5 mg PO DAILY RF: 0 loratadine 10 mg tablet 10 mg PO DAILY RF: 0 meloxicam 15 mg tablet 15 mg PO DAILY RF: 0 cyanocobalamin (vitamin B-12) 1,000 mcg tablet 1,000 mcg PO DAILY RF: 0 acetaminophen 650 mg tablet extended release 1,300 mg PO QHS RF: 0 ascorbic acid (vitamin C) 500 mg tablet 500 mg PO DAILY RF: 0 ferrous sulfate 325 mg (65 mg iron) tablet 325 mg PO DAILY RF: 0 budesonide-formoterol [Symbicort] 160-4.5 mcg/actuation HFA aerosol inhaler 2 puff INHALATION BID RF: 0 Ajovy Autoinjector 225 mg/1.5 mL auto-injector 225 mg SC QMONTH RF: 0 rimegepant 75 mg tablet,disintegrating 75 mg PO ONCE RF: 0 gabapentin 100 mg capsule 300 mg PO DAILY RF: 0 levothyroxine 175 mcg tablet 175 mcg PO DAILY Qty: 30 RF: 6 lorazepam 2 mg tablet 2 mg PO DAILY PRN (Reason: Anxiety) RF: 0 febuxostat 40 mg tablet 40 mg PO DAILY RF: 0 lubiprostone [Amitiza] 8 mcg capsule 8 mcg PO BID Qty: 60 RF: 1 albuterol sulfate 1 PUFF inhaler 2 puff PO Q4H PRN PRN (Reason: Shortness Of Breath) RF: 0 megestrol 40 mg tablet 40 mg PO QHS RF: 0 valsartan 80 mg tablet 160 mg PO DAILY RF: 0 rosuvastatin [Crestor] 40 mg tablet 40 mg PO QHS RF: 0 Trelegy Ellipta 100-62.5-25 mcg blister with device 1 ea INHALATION DAILY RF: 0 phenazopyridine [Pyridium] 200 MG tablet 200 mg PO TID PRN PRN (Reason: Bladder Spasms) 7 Days Qty: 30 RF: 0 ketorolac 10 mg tablet 10 mg PO Q6H PRN (Reason: pain) 3 Days RF: 0 citalopram 40 mg tablet 40 mg PO DAILY RF: 0 hydroxyzine HCl 25 mg tablet 25 mg PO TID PRN (Reason: Anxiety) RF: 0 Discontinued lorazepam 2 mg tablet RF: 0 lorazepam 2 mg tablet RF: 0 No Action cholecalciferol (vitamin D3) 1,250 mcg (50,000 unit) capsule 50,000 unit PO QWEEK RF: 0 Referrals / Follow Up: Casey Lutz NP, ARMATURE VARNISHER-C [Primary Care Provider] - Within 1 Week Disposition Disposition (needs filled in before D/C Order can be placed): Home, Self Care Charges/Coding Visit Charges Inpatient E&M: 81812 Disch Hosp
== END 2021-07-12 10:45 | disposition home or self-care (01) | DRG 690 ==
LOC: ED 05:20 → PCU 11:27
PROVIDERS: Emergency Provider Student in an Organized Health Care Education/Training Program; PCP Nurse Practitioner Family
DX: N39.0 Urinary tract infection, site not specified (principal); Z68.42 Body mass index [BMI] 45.0-49.9, adult; D50.9 Iron deficiency anemia, unspecified; K76.0 Fatty (change of) liver, not elsewhere classified; I48.91 Unspecified atrial fibrillation; E03.9 Hypothyroidism, unspecified; G25.81 Restless legs syndrome; J44.9 Chronic obstructive pulmonary disease, unspecified; E66.01 Morbid (severe) obesity due to excess calories; F41.9 Anxiety disorder, unspecified; E78.5 Hyperlipidemia, unspecified; M10.9 Gout, unspecified; I10 Essential (primary) hypertension; K21.9 Gastro-esophageal reflux disease without esophagitis; E55.9 Vitamin D deficiency, unspecified; K59.00 Constipation, unspecified; E87.6 Hypokalemia; G43.909 Migraine, unspecified, not intractable, without status migrainosus; G62.9 Polyneuropathy, unspecified; R11.2 Nausea with vomiting, unspecified; F32.A Depression, unspecified; K90.0 Celiac disease; Z87.442 Personal history of urinary calculi; Z87.19 Personal history of other diseases of the digestive system; Z79.899 Other long term (current) drug therapy; Z28.310 Unvaccinated for COVID-19; Z28.9 Immunization not carried out for unspecified reason; R53.81 Other malaise; M94.0 Chondrocostal junction syndrome [Tietze]; Z66 Do not resuscitate
CPT/HCPCS: 36415; 74176; 80048; 80053; 81001; 82962; 83690; 83735; 85025; 87086; 87088; 87186; 87426; 93005; 94002; 94640; 94762; 96361; 96374; 96375; 97161; 97165; 97802; 99284; 99285; J7030; A4216; J2405

== ENCOUNTER → 2021-09-22 | Outpatient (CLI) | payer MEDICARE, MEDICAID, SELFPAY ==
--- NOTE | 2021-09-22 14:15 | RAD_ITS ---
[employer]Scriptor Unformatted Report Format: Options: n 2f 2i act cap dr ha wm wcta sl lj Gender: Female Age: 51 years Exam: XR Abdomen 1 View Comparison: History: CONSTIPATION Contrast: Findings: See Impression. RAD/Abdomen Single View IMPRESSION: Stool and gas throughout the colon can seen with constipation. Vascular calcifications in the pelvis. Remaining examination is unremarkable. Electronically Signed: Sanjay Raza MD at 1:38 EDT ,
== END | disposition home or self-care (01) ==
LOC: RAD 14:06
PROVIDERS: PCP Nurse Practitioner Family; Referring Provider Nurse Practitioner Primary Care; Visit Provider Nurse Practitioner Primary Care
DX: K59.00 Constipation, unspecified (principal)
CPT/HCPCS: 74018

== ENCOUNTER 2021-10-17 12:56 | Emergency (ER) | payer MEDICARE, MEDICAID, SELFPAY ==
[2021-10-17 12:57] VITALS: BP 157/97; PULSE 84; RESP 16; TEMP 36.6; O2SAT 100; BMI 47.7
--- NOTE | 2021-10-17 13:09 | EKG12_ITS ---
Test Reason : GENERAL ILLNESS Blood Pressure : / mmHG Vent. Rate : 062 BPM Atrial Rate : 062 BPM P-R Int : 160 ms QRS Dur : 078 ms QT Int : 400 ms P-R-T Axes : 059 009 236 degrees QTc Int : 406 ms Normal sinus rhythm with sinus arrhythmia Cannot rule out Inferior infarct , age undetermined Abnormal ECG Low voltage QRS (limnb leads) Nonspecific T wave abnormality Confirmed by DEAN GONZALEZ, SAMI ([id number]), editorial intern SONJA ZABALA ([id number]) on 10/20/2021 7:58:14 AM Referred By: Confirmed By:SAMI MORAN MD
--- NOTE | 2021-10-17 13:12 | EX.ED.DYSGE1 ---
HPI History of Present Illness Chief Complaint: General Illness Detail of Chief Complaint: Abdominal pain, shortness of breath, cough Informant: patient Onset/Context/Timing Onset: Days (Approximately 1 week) Context: Gradual Onset Timing: Waxes and wanes Current Severity: Moderate Maximum Severity: Moderate Narrative Narrative: Patient presents with multiple complaints. She reports cough and shortness of breath and feels that she needs a breathing treatment. She reports abdominal cramping. She reports vomiting and diarrhea. She denies having fever at home. She reportedly went to urgent care and was told that she was too sick to be there, she needed to come to emergency room. [facility] Medical History Anemia Anxiety Arthritis Asthma BiPAP (biphasic positive airway pressure) dependence Cardiac murmur Celiac disease Chest pain Cholelithiasis Chronic kidney disease Constipation COPD (chronic obstructive pulmonary disease) Depression Diabetes mellitus Dyspnea on exertion Essential hypertension Gallstones Gastric reflux GERD (gastroesophageal reflux disease) Gout Hepatic steatosis History of cholelithiasis History of chronic back pain Hydronephrosis Hyperlipidemia Hypersomnia Hypertension Hypothyroidism Iron deficiency anemia Microcytic anemia Migraine headache Morbid obesity with BMI of 40.0-44.9, adult Non-smoker DAVY treated with BiPAP Rash Restless leg syndrome Seasonal allergies Shortness of breath on exertion Sleep apnea Ureterolithiasis UTI (urinary tract infection) Vitamin B12 deficiency Vitamin D deficiency Wears glasses Home Medications albuterol sulfate 90 mcg/actuation aerosol inhaler 2 puff PO Q4H PRN PRN Shortness Of Breath 11/21/15 [History Last Taken 01/05/21] citalopram 40 mg tablet 40 mg PO DAILY antidepressant/antianxiety 07/27/19 [History Last Taken 01/05/21] megestrol 40 mg tablet 40 mg PO QHS for heavy menses 09/28/19 [History Last Taken 01/05/21] acetaminophen 650 mg tablet,extended release 1,300 mg PO QHS pain 04/02/20 [History Last Taken 01/05/21] amlodipine 5 mg tablet 5 mg PO DAILY blood pressure 04/02/20 [History Last Taken 01/05/21] ascorbic acid (vitamin C) 500 mg tablet 500 mg PO DAILY supplement 04/02/20 [History Last Taken 01/05/21] budesonide-formoterol HFA 160 mcg-4.5 mcg/actuation aerosol inhaler (Symbicort) 2 puff inhalation BID inhaler 04/02/20 [History Last Taken 01/05/21] cholecalciferol (vitamin D3) 1,250 mcg (50,000 unit) capsule 50,000 unit PO QWEEK SUPPLEMENT 04/02/20 [History Last Taken 01/05/21] cyanocobalamin (vitamin B-12) 1,000 mcg tablet 1,000 mcg PO DAILY Supplement 04/02/20 [History Last Taken 01/05/21] empagliflozin 25 mg tablet (Jardiance) 25 mg PO DAILY diabetes 04/02/20 [History Last Taken 01/05/21] ferrous sulfate 325 mg (65 mg iron) tablet 325 mg PO DAILY supplement 04/02/20 [History Last Taken 01/05/21] hydroxyzine HCl 25 mg tablet 25 mg PO TID PRN Anxiety 04/02/20 [History Last Taken 01/05/21] loratadine 10 mg tablet 10 mg PO DAILY allergies 04/02/20 [History Last Taken 01/05/21] magnesium oxide 500 mg tablet 500 mg PO DAILY supplement 04/02/20 [History Last Taken 01/05/21] meloxicam 15 mg tablet 15 mg PO DAILY arthritis 04/02/20 [History Last Taken 01/05/21] omeprazole 40 mg capsule,delayed release 40 mg PO DAILY reflux 04/02/20 [History Last Taken 01/05/21] promethazine 25 mg tablet 25 mg PO Q6H PRN Nausea 04/02/20 [History Last Taken 01/05/21] topiramate 100 mg tablet 100 mg PO DAILY migraines 04/02/20 [History Last Taken 01/05/21] ubrogepant 100 mg tablet (Ubrelvy) 100 mg PO ONCE migraines 04/02/20 [History Last Taken 01/05/21] rimegepant 75 mg disintegrating tablet 75 mg PO ONCE migraines 06/19/20 [History Last Taken 01/05/21] fluticasone fur. 100 mcg-umeclid 62.5 mcg-vilant 25 mcg inhalat.powder (Trelegy Ellipta) 1 ea inhalation DAILY copd 08/14/20 [History Last Taken 01/05/21] rosuvastatin 40 mg tablet (Crestor) 40 mg PO QHS cholesterol 08/14/20 [History Last Taken 01/05/21] valsartan 80 mg tablet 160 mg PO DAILY blood pressure 08/14/20 [History Last Taken 01/05/21] gabapentin 100 mg capsule 300 mg PO DAILY neuropathy 09/30/20 [History Last Taken 01/05/21] phenazopyridine 200 mg tablet (Pyridium) 200 mg PO TID PRN PRN Bladder Spasms 7 days #30 tabs 01/06/21 [Rx Last Taken Unknown] ketorolac 10 mg tablet 10 mg PO Q6H PRN pain 3 days 01/10/21 [Rx Last Taken Unknown] levothyroxine 175 mcg tablet 175 mcg PO DAILY #30 tabs 05/19/21 [Rx Last Taken Unknown] febuxostat 40 mg tablet 40 mg PO DAILY 05/20/21 [History Last Taken Unknown] lorazepam 2 mg tablet 2 mg PO DAILY PRN Anxiety 05/20/21 [History Last Taken Unknown] lubiprostone 8 mcg capsule (Amitiza) 8 mcg PO BID #60 caps 06/24/21 [Rx Last Taken Unknown] ondansetron 4 mg disintegrating tablet 4 mg PO Q8H PRN nausea and vomiting #10 tabs 07/12/21 [Rx Last Taken Unknown] clindamycin HCl 300 mg capsule 300 mg PO Q6H 08/19/21 [History Last Taken Unknown] galcanezumab-gnlm 120 mg/mL subcutaneous pen injector (Emgality Pen) 120 mg subcut QMONTH 08/19/21 [History Last Taken Unknown] dicyclomine 20 mg tablet 20 mg PO BID PRN abdominal cramping #14 tabs 10/17/21 [Rx Last Taken Unknown] ondansetron 4 mg disintegrating tablet 4 mg PO Q8H PRN nausea and vomiting #10 tabs 10/17/21 [Rx Last Taken Unknown] Allergy/AdvReac Type Severity Reaction Status Date / Time hydrochlorothiazide AdvReac Intermediate Contributes Verified 10/17/21 12:56 to gout naproxen [From Naprosyn] AdvReac Intermediate Nausea Verified 10/17/21 12:56 aspirin AdvReac Nausea Verified 10/17/21 12:56 Family History Father , Age 72 Hypertension Mother CAD (coronary artery disease) Myocardial infarction, Onset Age: 55 Hypertension Sister CAD (coronary artery disease) Brother Cancer Surgical History History of carpal tunnel release History of left heart catheterization (11/11/20) history of uterine ablation Previous section Social History Smoking Status: Never smoker alcohol intake: never substance use type: does not use caffeine: No ROS ROS ED Constitutional Constitutional ED: Denies chills or fever(s) Eyes Eyes: Denies change in vision or discharge from eye(s) ENT ENT ED: Denies discharge from eye(s), rhinorrhea or sore throat Cardiovascular Cardiovascular: Reports chest pain; Denies palpitations Respiratory/Chest Respiratory/Chest: Reports cough and dyspnea Gastrointestinal Gastrointestinal: Reports abdominal pain, diarrhea, nausea and vomiting Genitourinary Genitourinary ED: Denies difficulty urinating or dysuria Musculoskeletal Musculoskeletal: Reports myalgias; Denies back pain or extremity pain Integumentary Denies Abrasions or rash Neurologic Neurologic: Denies headache(s) or weakness Psychiatric Psychiatric: Reports anxiety; Denies depression Allergic/Immunologic Allergic/Immunologic ED: Denies lip swelling or urticaria EXAM Physical Exam Const Vital Signs: 10/17/21 12:57 10/17/21 13:42 10/17/21 13:57 Temperature 97.9 F Temperature Source Temporal Pulse Rate 84 67 Respiratory Rate 16 18 Respiratory Effort Normal Blood Pressure 157/97 H Blood Pressure Mean 117 Pulse Ox 100 Oxygen Delivery Method Room Air 10/17/21 14:43 Temperature 97.7 F L Temperature Source Oral Pulse Rate 74 Respiratory Rate 17 Respiratory Effort Blood Pressure 165/105 H Blood Pressure Mean 125 Pulse Ox 98 Oxygen Delivery Method Room Air Positive well nourished, well developed and obese General Appearance ED: well developed Nutritional Appearance: obese HEENT Reports normocephalic and head/scalp atraumatic Eyes PERRL and EOMs intact bilaterally Neck supple Chest Wall inspection of chest normal and palpation of chest normal Resp normal respiratory effort and clear to auscultation bilaterally Cardio regular rate and regular rhythm GI GI Narrative: Mild diffuse tenderness palpation. No guarding or rebound. Hypoactive bowel sounds. Palpation: soft Extremity normal to inspection Neuro oriented x3 Neuro Narrative: No focal neurologic deficit. Sensorium / Orientation: alert Psych mental status grossly normal Skin no rashes or lesions noted MDM MDM MDM Narrative Medical decision making narrative: Patient was given a dose of Ativan help with anxiety along with a breathing treatment. She was given Toradol and Bentyl. Lab work and urinalysis obtained. Lab Data Attestation: I reviewed the patient's lab results. Labs: Laboratory Results - last 24 hr 10/17/21 10/17/21 10/17/21 13:55 13:55 14:40 WBC 8.7 RBC 3.66 L Hgb 13.2 Hct 40.7 MCV 111.2 H MCH 36.1 H MCHC 32.4 RDW Std Deviation 65.3 H RDW Coeff of Alfredo 15.7 H Plt Count 316 MPV 10.1 Immature Gran % (Auto) 0.200 Neut % (Auto) 69.4 Lymph % (Auto) 19.9 Carter % (Auto) 5.3 Eos % (Auto) 4.3 Baso % (Auto) 0.9 Absolute Neuts (auto) 6.0 Absolute Lymphs (auto) 1.72 Nucleated RBC % 0 Platelet Estimate ADEQUATE Macrocytosis 1+ Sodium 138 Potassium 3.7 Chloride 106 Carbon Dioxide 23.0 Anion Gap 9 BUN 9 Creatinine 1.53 H Estim Creat Clear Calc 37.56 Est GFR (MDRD) Af Amer 46 L Est GFR (MDRD) Non-Af 38 L BUN/Creatinine Ratio 5.9 L Glucose 115 H Calcium 9.5 Total Bilirubin 0.80 Direct Bilirubin 0.20 AST 21 ALT 23 Alkaline Phosphatase 97 Troponin I High Sens 6 Total Protein 7.7 Albumin 3.7 Globulin 4.0 Lipase 226 Urine Color Yellow Urine Clarity Clear Urine pH 6.0 Ur Specific [place] 1.010 Urine Protein Negative Urine Glucose (UA) Normal Urine Ketones Negative Urine Occult Blood Negative Urine Nitrite Negative Urine Bilirubin Negative Urine Urobilinogen Normal Ur Leukocyte Esterase 25 H Urine RBC 0 SEEN Urine WBC 5-10 SEEN Ur Squamous Epith Cells 0-5 SEEN Urine Bacteria RARE Urine Mucus 0 SEEN Radiography Chest X-Ray - ED: 1 View, Read by ED Physician, No Acute Disease and Chronic Changes Diagnostic Testing: Clinical Impression(s) from Imaging Studies Chest X-Ray 10/17/21 14:03 IMPRESSION: There are no acute findings. Electronically Signed: Maury Srivastava MD at 14:16 EDT , EKG Initial EKG: Attestation: I personally reviewed and interpreted this EKG as follows: Interpretation: Sinus Rhythm (Sinus at 62 with no acute ischemia. Nonspecific lateral T wave flattening similar to prior study.) Treatment and Re-Evaluation Narrative: On repeat evaluation patient resting comfortably. She does report some improvement in her symptoms. Lab work reveals normal white count. No left shift. Chemistry studies remarkable only for creatinine 1.53, only slightly above her baseline. LFTs and lipase unremarkable. Urinalysis reveals no acute infection. Chest x-ray per my interpretation reveals no focal infiltrate. Radiology interpretation is reviewed and agrees. At this time patient be discharged with prescription for Zofran and Bentyl. She will continue supportive care at home. Discharge Plan Triage Chief Complaint: General Illness ED Provider: Nannette Stahl Dx/Rx/DC Orders Clinical Impression: Viral syndrome Instructions: ED Viral Syndrome (Adult) Prescriptions: New dicyclomine 20 mg tablet 20 mg PO BID PRN (Reason: abdominal cramping) Qty: 14 0RF ondansetron 4 mg tablet,disintegrating 4 mg PO Q8H PRN (Reason: nausea and vomiting) Qty: 10 0RF No Action topiramate 100 mg tablet 100 mg PO DAILY Label Comments: TAKE 1 TABLET BY MOUTH TWICE DAILY omeprazole 40 mg capsule,delayed release(DR/EC) 40 mg PO DAILY Label Comments: TAKE 1 CAPSULE BY MOUTH DAILY promethazine 25 mg tablet 25 mg PO Q6H PRN (Reason: Nausea) Label Comments: take 1 tablet by oral route every 6 hours as needed Jardiance 25 mg tablet 25 mg PO DAILY magnesium oxide 500 mg tablet 500 mg PO DAILY Ubrelvy 100 mg tablet 100 mg PO ONCE Rx Instructions: as a single dose; may repeat once in >=2 hours after first dose if needed amlodipine 5 mg tablet 5 mg PO DAILY loratadine 10 mg tablet 10 mg PO DAILY cholecalciferol (vitamin D3) 1,250 mcg (50,000 unit) capsule 50,000 unit PO QWEEK Rx Instructions: PT takes on Tuesday meloxicam 15 mg tablet 15 mg PO DAILY cyanocobalamin (vitamin B-12) 1,000 mcg tablet 1,000 mcg PO DAILY Label Comments: TAKE 1 TABLET DAILY acetaminophen 650 mg tablet extended release 1,300 mg PO QHS ascorbic acid (vitamin C) 500 mg tablet 500 mg PO DAILY Label Comments: TAKE 1 TABLET DAILY ferrous sulfate 325 mg (65 mg iron) tablet 325 mg PO DAILY budesonide-formoterol [Symbicort] 160-4.5 mcg/actuation HFA aerosol inhaler 2 puff INHALATION BID rimegepant 75 mg tablet,disintegrating 75 mg PO ONCE gabapentin 100 mg capsule 300 mg PO DAILY clindamycin HCl 300 mg capsule 300 mg PO Q6H Emgality Pen 120 mg/mL pen injector 120 mg subcut QMONTH levothyroxine 175 mcg tablet 175 mcg PO DAILY Qty: 30 6RF lorazepam 2 mg tablet 2 mg PO DAILY PRN (Reason: Anxiety) febuxostat 40 mg tablet 40 mg PO DAILY lubiprostone [Amitiza] 8 mcg capsule 8 mcg PO BID Qty: 60 1RF albuterol sulfate 1 PUFF inhaler 2 puff PO Q4H PRN PRN (Reason: Shortness Of Breath) Label Comments: megestrol 40 mg tablet 40 mg PO QHS valsartan 80 mg tablet 160 mg PO DAILY rosuvastatin [Crestor] 40 mg tablet 40 mg PO QHS Trelegy Ellipta 100-62.5-25 mcg blister with device 1 ea INHALATION DAILY Label Comments: INHALE 1 PUFF BY MOUTH DAILY with good oral care phenazopyridine [Pyridium] 200 MG tablet 200 mg PO TID PRN PRN (Reason: Bladder Spasms) 7 Days Qty: 30 0RF ketorolac 10 mg tablet 10 mg PO Q6H PRN (Reason: pain) 3 Days 0RF ondansetron 4 mg tablet,disintegrating 4 mg PO Q8H PRN (Reason: nausea and vomiting) Qty: 10 0RF citalopram 40 mg tablet 40 mg PO DAILY hydroxyzine HCl 25 mg tablet 25 mg PO TID PRN (Reason: Anxiety) Primary Care Provider: Casey Lutz NP Referrals: Casey Lutz NP, [employer] POLLUTION CONTROL TECHNICIAN-C [Primary Care Provider] - 1 Week if not improving Disposition Disposition: Home, Self Care
[2021-10-17] MEDS: Ipratropium/Albuterol Sulfate 3 ML AMPUL.NEB INHALATION (13:36)
[2021-10-17] MEDS: Dicyclomine 20 MG/2 ML Vial IM (13:44)
[2021-10-17 13:57] VITALS: PULSE 67; RESP 18
[2021-10-17] MEDS: 0.9% Normal Saline 1,000 ML 150 ML IV (13:57)
[2021-10-17] MEDS: LORazepam 2 MG/ML Syringe 0.5 MG IV (13:58)
[2021-10-17 14:00] LABS: Absolute Lymphocyte Count 1.72 X10^3/uL (0.83-4.51); Basophil# 0.08 X10^3/uL; Basophil% 0.9 % (0-1); Eosinophil# 0.37 X10^3/uL; Eosinophils% 4.3 % (0-5); Hematocrit 40.7 % (37-47); Hemoglobin 13.2 g/dL (12.0-15.0); Lymphocyte # 1.72 X10^3/ul (0.83-4.51); Lymphocyte % 19.9 % (19-41); Mean Corp Hgb Conc 32.4 g/dL (32-36); Mean Corpuscular Hgb 36.1 pg (27.0-32.0); Mean Corpuscular Volume 111.2 fL (81-99); Mean Platelet Vol. 10.1 fl (6.2-12.0); Monocyte# 0.46 X10^3/uL; Monocyte% 5.3 % (0-10); NRBC Flagged by Analyzer 0 % (0-5); Neutrophil % 69.4 % (47-70); POSITIVE MORPHOLOGY YES; Platelet Count 316 K/mm3 (150-450); RBC Distribution Width CV 15.7 % (11.6-14.6); RBC Distribution Width SD 65.3 fl (35.1-43.9); Red Blood Count 3.66 M/mm3 (4.2-5.4); White Blood Count 8.7 K/mm3 (4.4-11.0)
--- NOTE | 2021-10-17 14:03 | RAD_ITS ---
STUDY: X-RAY CHEST REASON FOR EXAM: Female, 51 years old. CHEST PAIN sob TECHNIQUE: XR Chest 1 View COMPARISON: 06/08/2021 FINDINGS: There is no demonstrated pleural abnormality. Normal size heart. Normal mediastinum and kumar. Normal visualized pulmonary arteries. Normal visualized aortic arch and descending thoracic aorta. Normal visualized thoracic spine. Normal visualized ribs, clavicles, and shoulders. There is no demonstrated abnormality of the visualized soft tissue structures of the upper abdomen. RAD/Chest 1 View (Portable) IMPRESSION: There are no acute findings. Electronically Signed: Maury Srivastava MD at 14:16 EDT ,
[2021-10-17 14:04] LABS: Differential Indicated SCAN CRITERIA MET
[2021-10-17] MEDS: Ketorolac 30 MG/ML Syringe IV (14:04)
[2021-10-17 14:19] LABS: AST(SGOT) 21 U/L (15-37); Alanine Aminotransfer ALT/SGPT 23 U/L (13-56); Albumin, Serum 3.7 g/dL (3.2-5.0); Alkaline Phosphatase 97 U/L (45-117); Anion Gap 9 (5-15); BUN 9 mg/dL (7-18); BUN/Creat Ratio 5.9 RATIO (10-20); Calcium,Total 9.5 mg/dL (8.5-10.1); Chloride 106 mmol/L (98-107); Creatinine, Serum 1.53 mg/dL (0.55-1.02); EST Glomerular Filtration Rate 38 mL/min (>60); Est Glom Filt Rate - Afr Amer 46 mL/min (>60); Estimated Creatinine Clearance 37.56 ml/min; Glucose 115 mg/dL (74-106); Lipase 226 U/L (73-393); Potassium 3.7 mmol/L (3.5-5.1); Protein, Total 7.7 g/dL (6.4-8.2); Sodium Level 138 mmol/L (136-145); Troponin-I HS 6 pg/mL (3.0-54.0)
[2021-10-17 14:38] LABS: Macrocytosis 1+; Platelet Estimate ADEQUATE (ADEQ)
[2021-10-17 14:43] VITALS: BP 165/105; PULSE 74; RESP 17; TEMP 36.5; O2SAT 98
[2021-10-17 14:44] VITALS: O2SAT 98
[2021-10-17 14:45] LABS: Mucous, Urine 0 SEEN /hpf (<or=2+); Red Blood Cells-Urine 0 SEEN /hpf (0-5)
[2021-10-17 14:46] LABS: Color, Urine Yellow (Yellow); Glucose, Dipstick Normal (Normal); Ketone-Dipstick Negative (Negative); Leukocyte Esterase-Dipstick 25 /ul (Negative); Nitrite-Dipstick Negative (Negative); Occult Blood-Urine Negative /ul (Negative); Protein-Dipstick Negative (Negative); Urine Bilirubin Dipstick Negative (Negative); Urine Clarity Clear (Clear); Urine Urobilinogen Normal (Normal)
[2021-10-17 14:51] LABS: Bacteria RARE /hpf (None Seen); Squamous Epithelial Cells - UA 0-5 SEEN /hpf (5-10); White Blood Cells 5-10 SEEN /hpf (0-5)
== END 2021-10-17 15:32 | disposition home or self-care (01) ==
PROVIDERS: Emergency Provider Emergency Medicine; PCP Nurse Practitioner Family; Visit Provider Emergency Medicine
DX: B34.9 Viral infection, unspecified (principal); J44.9 Chronic obstructive pulmonary disease, unspecified; E11.22 Type 2 diabetes mellitus with diabetic chronic kidney disease; E66.01 Morbid (severe) obesity due to excess calories; Z68.41 Body mass index [BMI] 40.0-44.9, adult; F41.9 Anxiety disorder, unspecified; E78.5 Hyperlipidemia, unspecified; N18.9 Chronic kidney disease, unspecified; I12.9 Hypertensive chronic kidney disease with stage 1 through stage 4 chronic kidney disease, or unspecified chronic kidney disease; E03.9 Hypothyroidism, unspecified; K21.9 Gastro-esophageal reflux disease without esophagitis; M19.90 Unspecified osteoarthritis, unspecified site; G47.33 Obstructive sleep apnea (adult) (pediatric); Z79.84 Long term (current) use of oral hypoglycemic drugs; Z79.899 Other long term (current) drug therapy
CPT/HCPCS: 71045; 80048; 80076; 81001; 83690; 84484; 85025; 87811; 93005; 94640; 96361; 96372; 96374; 96375; 99284; J7030; A4216

== ENCOUNTER → 2021-10-20 | Outpatient (CLI) | payer MEDICARE, MEDICAID, SELFPAY ==
[2021-10-20 14:33] LABS: Amphetamine Urine VISTA NEGATIVE (<1000 ng/mL); Barbiturate Urine VISTA NEGATIVE (< 200 ng/mL); Benzodiazepine Urine VISTA NEGATIVE (< 200 ng/mL); Cocaine Urine VISTA NEGATIVE (< 300 ng/mL); Ecstacy Urine VISTA NEGATIVE (< 500 ng/mL); Methadone Urine VISTA NEGATIVE (< 300 ng/mL); PCP Urine VISTA NEGATIVE (< 25 ng/mL); THC Urine VISTA NEGATIVE (< 50 ng/mL); Vista UDS pH Range 5
== END | disposition home or self-care (01) ==
PROVIDERS: PCP Nurse Practitioner Family; Referring Provider Anesthesiology Pain Medicine; Visit Provider Anesthesiology Pain Medicine
DX: F11.20 Opioid dependence, uncomplicated (principal)
CPT/HCPCS: 80307

== ENCOUNTER 2021-10-21 15:20 | Emergency (ER) | payer MEDICARE, MEDICAID, SELFPAY ==
[2021-10-21 15:21] VITALS: BP 114/114; PULSE 86; RESP 14; TEMP 36.2; O2SAT 99; BMI 64.8
--- NOTE | 2021-10-21 15:29 | ED.RN ---
Pt complaining she cant breath. Pt curled up laying flat on the bed. Educated the importance of trying to sit up to help breathing. Pt refusing. O2 99% on RA.
--- NOTE | 2021-10-21 15:39 | CT_ITS ---
STUDY: CTA CHEST REASON FOR EXAM: Female, 51 years old. pe RADIATION DOSAGE (If Supplied By Facility): CTDIvol = ( 19.73 ) mGy, DLP = ( 647.53 ) mGycm TECHNIQUE: The examination was performed with the intravenous administration of IV 100mL Isovue-370. Post-processing of the angiographic images was performed, with multiplanar reformation and 3D reconstruction. Individualized dose optimization techniques were used for this CT. COMPARISON: 08/14/2020 FINDINGS: Normal enhancement of the main pulmonary artery and right and left pulmonary arteries. Normal enhancement of the bilateral peripheral pulmonary arteries. There is no demonstrated pulmonary embolism. Normal thoracic aorta and visualized great vessels. There is no demonstrated aortic dissection. Normal heart and pericardium. Normal mediastinum. Normal hilar regions. Normal visualized trachea and bronchi. The lungs are well expanded. Normal pulmonary parenchyma. Normal pleura. Normal chest wall structures. Normal osseous structures. Normal visualized upper abdomen. CT/CTA Chest W/WO Contrast IMPRESSION: Normal CTA chest examination, without a demonstrated pulmonary embolism or arterial dissection. Electronically Signed: Casey Pichardo MD at 17:18 EDT ,
--- NOTE | 2021-10-21 15:40 | EKG12_ITS ---
Test Reason : BACK PAIN Blood Pressure : / mmHG Vent. Rate : 089 BPM Atrial Rate : 089 BPM P-R Int : 124 ms QRS Dur : 074 ms QT Int : 436 ms P-R-T Axes : 063 -21 113 degrees QTc Int : 530 ms Sinus rhythm with Premature supraventricular complexes Possible Inferior infarct , age undetermined Cannot rule out Anterior infarct , age undetermined Abnormal ECG Confirmed by CHAR GONZALEZ, RADHA ([id number]), news videotape editor ZANDER MAYER ([id number]) on 10/22/2021 1:28:12 PM Referred By: LEXY Confirmed By:TODD PARDO MD
--- NOTE | 2021-10-21 15:43 | EDS_ITS ---
HPI History of Present Illness Chief Complaint: Back Informant: patient and parent Narrative Narrative: Patient presents primarily with central chest pain and some pain in her mid back. She first tells me this started last night. But it is the same thing she was here for several days ago. I then state that those numbers and timing does not match. She then states it started Tuesday when she was here. And her mother states it started Tuesday. Then they both state that this is something that goes off and on. It gets worse when her anxiety goes up. She wants a breathing treatment because she also feels short of breath. She wants something for anxiety. She is denying fevers and chills to me. She has no vomiting abdominal pain or diarrhea. But she states she gets dry heaves if she even thinks about food. This is also common with anxiety. She denies any change in her medications recently. She denies any travel surgery immobilization personal or family history of DVT or PE. Nothing seems to make the symptoms better or worse. She did feel better after she was treated here the other day. She does admit she has been using her inhaler 3 or 4 times/inhalations at each episode. When asked, it seems like the inhaler might worsen some of her symptoms. [facility] Medical History Anemia Anxiety Arthritis Asthma BiPAP (biphasic positive airway pressure) dependence Cardiac murmur Celiac disease Chest pain Cholelithiasis Chronic kidney disease Constipation COPD (chronic obstructive pulmonary disease) Depression Diabetes mellitus Dyspnea on exertion Essential hypertension Gallstones Gastric reflux GERD (gastroesophageal reflux disease) Gout Hepatic steatosis History of cholelithiasis History of chronic back pain Hydronephrosis Hyperlipidemia Hypersomnia Hypertension Hypothyroidism Iron deficiency anemia Microcytic anemia Migraine headache Morbid obesity with BMI of 40.0-44.9, adult Non-smoker DAVY treated with BiPAP Rash Restless leg syndrome Seasonal allergies Shortness of breath on exertion Sleep apnea Ureterolithiasis UTI (urinary tract infection) Vitamin B12 deficiency Vitamin D deficiency Wears glasses Home Medications albuterol sulfate 90 mcg/actuation aerosol inhaler 2 puff PO Q4H PRN PRN Shortness Of Breath 11/21/15 [History Last Taken 01/05/21] citalopram 40 mg tablet 40 mg PO DAILY antidepressant/antianxiety 07/27/19 [History Last Taken 01/05/21] megestrol 40 mg tablet 40 mg PO QHS for heavy menses 09/28/19 [History Last Taken 01/05/21] acetaminophen 650 mg tablet,extended release 1,300 mg PO QHS pain 04/02/20 [History Last Taken 01/05/21] amlodipine 5 mg tablet 5 mg PO DAILY blood pressure 04/02/20 [History Last Taken 01/05/21] ascorbic acid (vitamin C) 500 mg tablet 500 mg PO DAILY supplement 04/02/20 [History Last Taken 01/05/21] budesonide-formoterol HFA 160 mcg-4.5 mcg/actuation aerosol inhaler (Symbicort) 2 puff inhalation BID inhaler 04/02/20 [History Last Taken 01/05/21] cholecalciferol (vitamin D3) 1,250 mcg (50,000 unit) capsule 50,000 unit PO QWEEK SUPPLEMENT 04/02/20 [History Last Taken 01/05/21] cyanocobalamin (vitamin B-12) 1,000 mcg tablet 1,000 mcg PO DAILY Supplement 04/02/20 [History Last Taken 01/05/21] empagliflozin 25 mg tablet (Jardiance) 25 mg PO DAILY diabetes 04/02/20 [History Last Taken 01/05/21] ferrous sulfate 325 mg (65 mg iron) tablet 325 mg PO DAILY supplement 04/02/20 [History Last Taken 01/05/21] hydroxyzine HCl 25 mg tablet 25 mg PO TID PRN Anxiety 04/02/20 [History Last Ta brian 01/05/21] loratadine 10 mg tablet 10 mg PO DAILY allergies 04/02/20 [History Last Taken 01/05/21] magnesium oxide 500 mg tablet 500 mg PO DAILY supplement 04/02/20 [History Last Taken 01/05/21] meloxicam 15 mg tablet 15 mg PO DAILY arthritis 04/02/20 [History Last Taken 01/05/21] omeprazole 40 mg capsule,delayed release 40 mg PO DAILY reflux 04/02/20 [History Last Taken 01/05/21] promethazine 25 mg tablet 25 mg PO Q6H PRN Nausea 04/02/20 [History Last Taken 01/05/21] topiramate 100 mg tablet 100 mg PO DAILY migraines 04/02/20 [History Last Taken 01/05/21] ubrogepant 100 mg tablet (Ubrelvy) 100 mg PO ONCE migraines 04/02/20 [History Last Taken 01/05/21] rimegepant 75 mg disintegrating tablet 75 mg PO ONCE migraines 06/19/20 [History Last Taken 01/05/21] fluticasone fur. 100 mcg-umeclid 62.5 mcg-vilant 25 mcg inhalat.powder (Trelegy Ellipta) 1 ea inhalation DAILY copd 08/14/20 [History Last Taken 01/05/21] rosuvastatin 40 mg tablet (Crestor) 40 mg PO QHS cholesterol 08/14/20 [History Last Taken 01/05/21] valsartan 80 mg tablet 160 mg PO DAILY blood pressure 08/14/20 [History Last Taken 01/05/21] gabapentin 100 mg capsule 300 mg PO DAILY neuropathy 09/30/20 [History Last Taken 01/05/21] phenazopyridine 200 mg tablet (Pyridium) 200 mg PO TID PRN PRN Bladder Spasms 7 days #30 tabs 01/06/21 [Rx Last Taken Unknown] ketorolac 10 mg tablet 10 mg PO Q6H PRN pain 3 days 01/10/21 [Rx Last Taken Unknown] levothyroxine 175 mcg tablet 175 mcg PO DAILY #30 tabs 05/19/21 [Rx Last Taken Unknown] febuxostat 40 mg tablet 40 mg PO DAILY 05/20/21 [History Last Taken Unknown] lorazepam 2 mg tablet 2 mg PO DAILY PRN Anxiety 05/20/21 [History Last Taken Unknown] lubiprostone 8 mcg capsule (Amitiza) 8 mcg PO BID #60 caps 06/24/21 [Rx Last Taken Unknown] ondansetron 4 mg disintegrating tablet 4 mg PO Q8H PRN nausea and vomiting #10 tabs 07/12/21 [Rx Last Taken Unknown] clindamycin HCl 300 mg capsule 300 mg PO Q6H 08/19/21 [History Last Taken Unknown] galcanezumab-gnlm 120 mg/mL subcutaneous pen injector (Emgality Pen) 120 mg subcut QMONTH 08/19/21 [History Last Taken Unknown] dicyclomine 20 mg tablet 20 mg PO BID PRN abdominal cramping #14 tabs 10/17/21 [Rx Last Taken Unknown] ondansetron 4 mg disintegrating tablet 4 mg PO Q8H PRN nausea and vomiting #10 tabs 10/17/21 [Rx Last Taken Unknown] lorazepam 1 mg tablet (Ativan) 1 mg PO TID PRN anxiety 3 days #9 tabs 10/21/21 [Rx Last Taken Unknown] Allergy/AdvReac Type Severity Reaction Status Date / Time hydrochlorothiazide AdvReac Intermediate Contributes Verified 10/21/21 15:20 to gout naproxen [From Naprosyn] AdvReac Intermediate Nausea Verified 10/21/21 15:20 aspirin AdvReac Nausea Verified 10/21/21 15:20 Family History Father , Age 72 Hypertension Mother CAD (coronary artery disease) Myocardial infarction, Onset Age: 55 Hypertension Sister CAD (coronary artery disease) Brother Cancer Surgical History History of carpal tunnel release History of left heart catheterization (11/11/20) history of uterine ablation Previous section Social History Smoking Status: Never smoker alcohol intake: never substance use type: does not use caffeine: No ROS ROS ED Constitutional Constitutional ED: Denies chills, fever(s) or subjective Eyes Eyes: Denies change in vision ENT ENT ED: Denies rhinorrhea or sore throat Cardiovascular Cardiovascular: Reports chest pain; Denies palpitations or racing heartbeat Respiratory/Chest Respiratory/Chest: Reports cough and dyspnea; Denies sputum Gastrointestinal Gastrointestinal: Reports other Details: Dry heaves ; Denies abdominal pain, nausea or vomiting Genitourinary Genitourinary ED: Denies dysuria Musculoskeletal Musculoskeletal: Reports back pain Integumentary Denies rash Neurologic Neurologic: Denies headache(s), paresthesias or weakness Psychiatric Psychiatric: Reports anxiety Endocrine Endocrinology: Denies polydipsia or polyuria Hematologic/Lymphatic Hematologic/Lymphatic: Denies easy bleeding or easy bruising Allergic/Immunologic Allergic/Immunologic ED: Denies urticaria EXAM Physical Exam Const Vital Signs: 10/21/21 15:21 10/21/21 17:11 Temperature 97.1 F L Temperature Source Temporal Pulse Rate 86 75 Respiratory Rate 14 18 Blood Pressure 114/114 H 148/86 H Blood Pressure Mean 114 106 Pulse Ox 99 97 Oxygen Delivery Method Room Air Positive well nourished, well developed and cachectic Constitutional Narrative: Patient has trouble sitting still. She speaks with somewhat pressured speech. General Appearance ED: well developed and cachectic; Negative for cyanotic or diaphoretic Nutritional Appearance: cachectic HEENT Reports moist mucous membranes Eyes EOMs intact bilaterally General Eye ED: Negative for scleral icterus Neck no lymphadenopathy and no JVD Neck Narrative: No stridor heard. Chest Wall inspection of chest normal Chest Narrative: Palpation of her mid sternal area and left posterior chest wall does reproduce moderate amount of her symptoms. These are the areas that are hurting. Resp normal respiratory effort and clear to auscultation bilaterally Resp Narrative: I can get the patient patient to take deep breaths. There is no sign of discomfort with this. She has very clear lungs. Even with a big breath and forced expiration I cannot bring out a wheeze. I do not think she needs a breathing treatment acutely. Auscultation: Negative for rales, rhonchi or wheezes Cardio regular rate and regular rhythm Rate: Negative for tachycardic GI normal to inspection, nondistended, normoactive bowel sounds and non-tender Back/Spine no CVA tenderness Back/Spine Narrative: Patient's back soreness is actually upper mid chest on the left. She does have tenderness as above in that area. But no skin changes are noted. Extremity Extremity Narrative: No asymmetry. No cord. No erythema. And no edema. General Extremety ED: Negative for edema or tenderness General Extremity: Negative for edema Neuro oriented x3 Sensorium / Orientation: alert; Negative for lethargic or stuporous Psych Psych Narrative: Patient does have a bit of pressured speech. She has trouble focusing. I will answer question and then she will asked the same 1 again. Her mother is trying to keep her calm and helping and this does help. Mood & Affect: anxious Skin no rashes or lesions noted MDM MDM MDM Narrative Medical decision making narrative: Blood work shows essentially unchanged and overall normal CBC. Electrolytes s how mild renal dysfunction which is chronic and unchanged. Glucose was 131. Calcium was just minimally high. Liver function tests are overall unremarkable. Troponin is still negative. CTA of the chest also shows no acute process. Patient states that she gets symptoms like this when her anxiety is bad. She feels very anxious now. She looks very anxious now. I do not think this is an exacerbation of her pulmonary disease because her lungs are absolutely clear with no wheeze. I cannot force a wheeze with expiration. I talked with the patient about management. I will get her something for pain. She has lorazepam listed but she just had 1 or 2 tablets. She does not have any at home. I explained that we have ruled out significant disease here today. She is okay to go home. Lab Data Attestation: I reviewed the patient's lab results. Labs: Laboratory Results - last 24 hr 10/21/21 10/21/21 15:55 15:55 WBC 9.3 RBC 4.15 L Hgb 15.0 Hct 43.8 MCV 105.5 H D MCH 36.1 H MCHC 34.2 D RDW Std Deviation 59.6 H RDW Coeff of Alfredo 15.2 H Plt Count 364 MPV 10.4 Immature Gran % (Auto) 0.400 Neut % (Auto) 67.9 Lymph % (Auto) 22.8 Garden % (Auto) 4.8 Eos % (Auto) 3.2 Baso % (Auto) 0.9 Absolute Neuts (auto) 6.3 Absolute Lymphs (auto) 2.13 Nucleated RBC % 0 Sodium 137 Potassium 4.3 Chloride 104 Carbon Dioxide 21.0 Anion Gap 12 BUN 9 Creatinine 1.55 H Estim Creat Clear Calc 37.08 Est GFR (MDRD) Af Amer 45 L Est GFR (MDRD) Non-Af 37 L BUN/Creatinine Ratio 5.8 L Glucose 131 H Calcium 11.0 H Total Bilirubin 0.70 AST 32 ALT 29 Alkaline Phosphatase 113 Troponin I High Sens 9 Total Protein 8.9 H Albumin 4.2 Globulin 4.7 H Albumin/Globulin Ratio 0.9 Lipase 350 Radiography Diagnostic Testing: Clinical Impression(s) from Imaging Studies Chest CTA 10/21/21 15:39 IMPRESSION: Normal CTA chest examination, without a demonstrated pulmonary embolism or arterial dissection. Electronically Signed: Casey Pichardo MD at 17:18 EDT , EKG Initial EKG: Comments: EKG done for chest pain read by me shows sinus rhythm with occasional possible PVCs. There is significant baseline artifact from patient's tremor. She has significant trouble sitting still due to the anxiety. There is no indication of acute ST elevation depression. There are nonspecific changes. PA interval QRS duration are normal. QTC does appear to be a bit long. Discharge Plan Triage Chief Complaint: Back ED Provider: Bruno Whittaker Dx/Rx/DC Orders Clinical Impression: Anxiety, Chest pain Instructions: ED Anxiety Reaction, ED Chest Pain, Uncertain Cause Prescriptions: New lorazepam [Ativan] 1 mg tablet 1 mg PO TID PRN (Reason: anxiety) 3 Days Qty: 9 0RF No Action topiramate 100 mg tablet 100 mg PO DAILY Label Comments: TAKE 1 TABLET BY MOUTH TWICE DAILY omeprazole 40 mg capsule,delayed release(DR/EC) 40 mg PO DAILY Label Comments: TAKE 1 CAPSULE BY MOUTH DAILY promethazine 25 mg tablet 25 mg PO Q6H PRN (Reason: Nausea) Label Comments: take 1 tablet by oral route every 6 hours as needed Jardiance 25 mg tablet 25 mg PO DAILY magnesium oxide 500 mg tablet 500 mg PO DAILY Ubrelvy 100 mg tablet 100 mg PO ONCE Rx Instructions: as a single dose; may repeat once in >=2 hours after first dose if needed amlodipine 5 mg tablet 5 mg PO DAILY loratadine 10 mg tablet 10 mg PO DAILY cholecalciferol (vitamin D3) 1,250 mcg (50,000 unit) capsule 50,000 unit PO QWEEK Rx Instructions: PT takes on Tuesday meloxicam 15 mg tablet 15 mg PO DAILY cyanocobalamin (vitamin B-12) 1,000 mcg tablet 1,000 mcg PO DAILY Label Comments: TAKE 1 TABLET DAILY acetaminophen 650 mg tablet extended release 1,300 mg PO QHS ascorbic acid (vitamin C) 500 mg tablet 500 mg PO DAILY Label Comments: TAKE 1 TABLET DAILY ferrous sulfate 325 mg (65 mg iron) tablet 325 mg PO DAILY budesonide-formoterol [Symbicort] 160-4.5 mcg/actuation HFA aerosol inhaler 2 puff INHALATION BID rimegepant 75 mg tablet,disintegrating 75 mg PO ONCE gabapentin 100 mg capsule 300 mg PO DAILY clindamycin HCl 300 mg capsule 300 mg PO Q6H Emgality Pen 120 mg/mL pen injector 120 mg subcut QMONTH levothyroxine 175 mcg tablet 175 mcg PO DAILY Qty: 30 6RF lorazepam 2 mg tablet 2 mg PO DAILY PRN (Reason: Anxiety) febuxostat 40 mg tablet 40 mg PO DAILY lubiprostone [Amitiza] 8 mcg capsule 8 mcg PO BID Qty: 60 1RF albuterol sulfate 1 PUFF inhaler 2 puff PO Q4H PRN PRN (Reason: Shortness Of Breath) Label Comments: megestrol 40 mg tablet 40 mg PO QHS valsartan 80 mg tablet 160 mg PO DAILY rosuvastatin [Crestor] 40 mg tablet 40 mg PO QHS Trelegy Ellipta 100-62.5-25 mcg blister with device 1 ea INHALATION DAILY Label Comments: INHALE 1 PUFF BY MOUTH DAILY with good oral care phenazopyridine [Pyridium] 200 MG tablet 200 mg PO TID PRN PRN (Reason: Bladder Spasms) 7 Days Qty: 30 0RF ketorolac 10 mg tablet 10 mg PO Q6H PRN (Reason: pain) 3 Days 0RF ondansetron 4 mg tablet,disintegrating 4 mg PO Q8H PRN (Reason: nausea and vomiting) Qty: 10 0RF dicyclomine 20 mg tablet 20 mg PO BID PRN (Reason: abdominal cramping) Qty: 14 0RF ondansetron 4 mg tablet,disintegrating 4 mg PO Q8H PRN (Reason: nausea and vomiting) Qty: 10 0RF citalopram 40 mg tablet 40 mg PO DAILY hydroxyzine HCl 25 mg tablet 25 mg PO TID PRN (Reason: Anxiety) Primary Care Provider: Casey Lutz NP Referrals: Casey Lutz NP, CONFERENCE MANAGER-C [Primary Care Provider] - 3-5 Days Disposition Disposition: Home, Self Care
[2021-10-21 16:05] LABS: Absolute Lymphocyte Count 2.13 X10^3/uL (0.83-4.51); Absolute Neutrophil Count 6.3 X10^3/uL (2.0-7.7); Basophil# 0.08 X10^3/uL; Basophil% 0.9 % (0-1); Eosinophils% 3.2 % (0-5); Hematocrit 43.8 % (37-47); Lymphocyte # 2.13 X10^3/ul (0.83-4.51); Lymphocyte % 22.8 % (19-41); Mean Corp Hgb Conc 34.2 g/dL (32-36); Mean Corpuscular Hgb 36.1 pg (27.0-32.0); Mean Corpuscular Volume 105.5 fL (81-99); Mean Platelet Vol. 10.4 fl (6.2-12.0); Monocyte# 0.45 X10^3/uL; Monocyte% 4.8 % (0-10); NRBC Flagged by Analyzer 0 % (0-5); Neutrophil # 6.33 X10^3/uL (2.7-7.7); Neutrophil % 67.9 % (47-70); Platelet Count 364 K/mm3 (150-450); RBC Distribution Width CV 15.2 % (11.6-14.6); RBC Distribution Width SD 59.6 fl (35.1-43.9); Red Blood Count 4.15 M/mm3 (4.2-5.4); White Blood Count 9.3 K/mm3 (4.4-11.0)
[2021-10-21] MEDS: LORazepam 2 MG/ML Syringe 1 MG IV (16:14)
[2021-10-21 16:27] LABS: ALB/GLOB Ratio 0.9 RATIO (0.9-2.4); AST(SGOT) 32 U/L (15-37); Alanine Aminotransfer ALT/SGPT 29 U/L (13-56); Albumin, Serum 4.2 g/dL (3.2-5.0); Alkaline Phosphatase 113 U/L (45-117); Anion Gap 12 (5-15); BUN 9 mg/dL (7-18); BUN/Creat Ratio 5.8 RATIO (10-20); Chloride 104 mmol/L (98-107); Creatinine, Serum 1.55 mg/dL (0.55-1.02); EST Glomerular Filtration Rate 37 mL/min (>60); Est Glom Filt Rate - Afr Amer 45 mL/min (>60); Estimated Creatinine Clearance 37.08 ml/min; Globulin 4.7 g/dL (2.2-4.2); Glucose 131 mg/dL (74-106); Lipase 350 U/L (73-393); Potassium 4.3 mmol/L (3.5-5.1); Protein, Total 8.9 g/dL (6.4-8.2); Sodium Level 137 mmol/L (136-145); Troponin-I HS 9 pg/mL (3.0-54.0)
[2021-10-21 17:11] VITALS: BP 148/86; PULSE 75; RESP 18; O2SAT 97
[2021-10-21] MEDS: LORazepam 1 MG Tablet PO (18:10)
== END 2021-10-21 18:23 | disposition home or self-care (01) ==
PROVIDERS: Emergency Provider Emergency Medicine; PCP Nurse Practitioner Family; Visit Provider Emergency Medicine
DX: F41.9 Anxiety disorder, unspecified (principal); J44.9 Chronic obstructive pulmonary disease, unspecified; E11.22 Type 2 diabetes mellitus with diabetic chronic kidney disease; E66.01 Morbid (severe) obesity due to excess calories; Z68.44 Body mass index [BMI] 60.0-69.9, adult; R07.9 Chest pain, unspecified; I12.9 Hypertensive chronic kidney disease with stage 1 through stage 4 chronic kidney disease, or unspecified chronic kidney disease; N18.9 Chronic kidney disease, unspecified; E78.5 Hyperlipidemia, unspecified; K21.9 Gastro-esophageal reflux disease without esophagitis; Z79.84 Long term (current) use of oral hypoglycemic drugs; Z79.899 Other long term (current) drug therapy
CPT/HCPCS: 71275; 80053; 83690; 84484; 85025; 87428; 93005; 96374; 99284; Q9967; A4216

== ENCOUNTER → 2021-11-17 | Outpatient (CLI) | payer MEDICARE, MEDICAID, SELFPAY ==
[2021-11-17 21:29] LABS: T4 Free Direct 0.12 ng/dL (0.76-1.46)
== END | disposition home or self-care (01) ==
LOC: LAB 15:06
PROVIDERS: PCP Nurse Practitioner Family; Referring Provider Internal Medicine Endocrinology, Diabetes & Metabolism; Visit Provider Internal Medicine Endocrinology, Diabetes & Metabolism
DX: E78.5 Hyperlipidemia, unspecified (principal)
CPT/HCPCS: 36415; 84439; 84443

== ENCOUNTER → 2021-11-18 | Outpatient (CLI) | payer MEDICARE, MEDICAID, SELFPAY ==
[2021-11-18 10:47] LABS: Hematocrit 38.1 % (37-47); Hemoglobin 12.6 g/dL (12.0-15.0); Mean Corp Hgb Conc 33.1 g/dL (32-36); Mean Corpuscular Hgb 35.8 pg (27.0-32.0); Mean Corpuscular Volume 108.2 fL (81-99); Mean Platelet Vol. 10.6 fl (6.2-12.0); Platelet Count 329 K/mm3 (150-450); RBC Distribution Width CV 14.8 % (11.6-14.6); RBC Distribution Width SD 59.1 fl (35.1-43.9); Red Blood Count 3.52 M/mm3 (4.2-5.4); White Blood Count 6.9 K/mm3 (4.4-11.0)
[2021-11-18 11:09] LABS: Hemoglobin A1c 6.2 % (3.8-5.6)
[2021-11-18 11:23] LABS: Vitamin D,25 Hydroxy 16.9 ng/mL
[2021-11-18 11:45] LABS: ALB/GLOB Ratio 0.9 RATIO (0.9-2.4); AST(SGOT) 24 U/L (15-37); Alanine Aminotransfer ALT/SGPT 21 U/L (13-56); Albumin, Serum 3.7 g/dL (3.2-5.0); Alkaline Phosphatase 89 U/L (45-117); Anion Gap 10 (5-15); BUN 11 mg/dL (7-18); BUN/Creat Ratio 6.8 RATIO (10-20); Calcium,Total 9.7 mg/dL (8.5-10.1); Chloride 108 mmol/L (98-107); Cholesterol 249 mg/dL (200); Creatinine, Serum 1.62 mg/dL (0.55-1.02); EST Glomerular Filtration Rate 36 mL/min (>60); Est Glom Filt Rate - Afr Amer 43 mL/min (>60); Globulin 3.9 g/dL (2.2-4.2); Glucose 107 mg/dL (74-106); High Density Lipoprotein 40 mg/dL; Iron 57 ug/dL (50-170); Potassium 3.7 mmol/L (3.5-5.1); Protein, Total 7.6 g/dL (6.4-8.2); Sodium Level 139 mmol/L (136-145); T4 Free Direct 0.12 ng/dL (0.76-1.46); Triglycerides 121 mg/dL; Uric Acid 9.1 mg/dL (2.6-6.0); Very Low Density Lipoprotein 24 mg/dL (5-40)
== END | disposition home or self-care (01) ==
PROVIDERS: PCP Nurse Practitioner Family; Referring Provider Nurse Practitioner Family; Visit Provider Nurse Practitioner Family
DX: I12.9 Hypertensive chronic kidney disease with stage 1 through stage 4 chronic kidney disease, or unspecified chronic kidney disease (principal); E11.22 Type 2 diabetes mellitus with diabetic chronic kidney disease; N18.30 Chronic kidney disease, stage 3 unspecified; D50.9 Iron deficiency anemia, unspecified; E78.00 Pure hypercholesterolemia, unspecified; E03.9 Hypothyroidism, unspecified; M10.9 Gout, unspecified; E55.9 Vitamin D deficiency, unspecified
CPT/HCPCS: 36415; 80053; 80061; 82306; 83036; 83540; 84439; 84443; 84550; 85027

== ENCOUNTER 2021-12-04 12:01 | Emergency (ER) | payer MEDICARE, MEDICAID, SELFPAY ==
[2021-12-04 12:03] VITALS: BP 198/104; PULSE 81; RESP 18; TEMP 36.3; O2SAT 100; BMI 49.2
[2021-12-04] MEDS: DiphenhydrAMINE 50 MG/ML Syringe 25 MG IV (12:42)
[2021-12-04] MEDS: Metoclopramide 10 MG/2 ML Vial IV (12:42)
[2021-12-04] MEDS: 0.9% Normal Saline 1,000 ML 1000 ML IV (12:42)
[2021-12-04 12:45] VITALS: BP 173/96; PULSE 84; RESP 16; O2SAT 99
--- NOTE | 2021-12-04 12:58 | RAD_ITS ---
STUDY: X-RAY CHEST REASON FOR EXAM: Female, 51 years old. Headaches. Chest pain. Anxiety. TECHNIQUE: PA and lateral views of the chest. COMPARISON: Comparison is made with prior study 10/17/2021. FINDINGS: EKG electrodes are seen. The lungs are clear and expanded. There is no demonstrated pleural abnormality. There is borderline cardiomegaly. Normal mediastinum and kumar. Normal visualized pulmonary arteries. Normal visualized aortic arch and descending thoracic aorta. Normal visualized thoracic spine. Normal visualized ribs, clavicles, and shoulders. There is no demonstrated abnormality of the visualized soft tissue structures of the upper abdomen. RAD/Chest PA and Lateral IMPRESSION: Borderline cardiomegaly. The lungs are clear. Electronically Signed: Seun Vieira MD at 13:49 EDT ,
[2021-12-04 12:59] LABS: Absolute Lymphocyte Count 1.19 X10^3/uL (0.83-4.51); Absolute Neutrophil Count 7.4 X10^3/uL (2.0-7.7); Basophil# 0.07 X10^3/uL; Basophil% 0.7 % (0-1); Eosinophil# 0.12 X10^3/uL; Eosinophils% 1.3 % (0-5); Hemoglobin 13.3 g/dL (12.0-15.0); Lymphocyte # 1.19 X10^3/ul (0.83-4.51); Lymphocyte % 12.4 % (19-41); Mean Corp Hgb Conc 32.4 g/dL (32-36); Mean Corpuscular Hgb 35.7 pg (27.0-32.0); Mean Corpuscular Volume 109.9 fL (81-99); Mean Platelet Vol. 10.3 fl (6.2-12.0); Monocyte# 0.69 X10^3/uL; Monocyte% 7.2 % (0-10); NRBC Flagged by Analyzer 0 % (0-5); Neutrophil # 7.44 X10^3/uL (2.7-7.7); Neutrophil % 77.9 % (47-70); Platelet Count 315 K/mm3 (150-450); RBC Distribution Width CV 14.9 % (11.6-14.6); RBC Distribution Width SD 60.3 fl (35.1-43.9); Red Blood Count 3.73 M/mm3 (4.2-5.4); White Blood Count 9.6 K/mm3 (4.4-11.0)
[2021-12-04 13:14] LABS: ALB/GLOB Ratio 0.9 RATIO (0.9-2.4); AST(SGOT) 22 U/L (15-37); Alanine Aminotransfer ALT/SGPT 24 U/L (13-56); Albumin, Serum 4.4 g/dL (3.2-5.0); Alkaline Phosphatase 124 U/L (45-117); Anion Gap 11 (5-15); BUN 9 mg/dL (7-18); BUN/Creat Ratio 6.7 RATIO (10-20); Calcium,Total 10.1 mg/dL (8.5-10.1); Chloride 108 mmol/L (98-107); Creatinine, Serum 1.34 mg/dL (0.55-1.02); EST Glomerular Filtration Rate 44 mL/min (>60); Est Glom Filt Rate - Afr Amer 54 mL/min (>60); Estimated Creatinine Clearance 42.89 ml/min; Globulin 4.7 g/dL (2.2-4.2); Glucose 127 mg/dL (74-106); Lipase 151 U/L (73-393); Potassium 3.3 mmol/L (3.5-5.1); Protein, Total 9.1 g/dL (6.4-8.2); Sodium Level 140 mmol/L (136-145)
--- NOTE | 2021-12-04 13:15 | EX.ED.DYSGE1 ---
HPI History of Present Illness Chief Complaint: General Illness Narrative Narrative: Patient presenting multiple complaints. Reports headache with migraine symptoms last 2 days denies trauma. Abdominal discomfort since yesterday vomiting x3 no hematemesis. Last bowel movement 2 days ago. No urinary symptoms. Denies any abdominal surgeries in the past. In the ED states that chest discomfort this morning radiates to the back. History of diabetes and hypertension. History of sleep apnea. History of GERD. Also history of anxiety. States feeling more anxious in the ED. [facility] Medical History Abnormal glucose Anemia Anxiety Arthritis Asthma BiPAP (biphasic positive airway pressure) dependence Cardiac murmur Celiac disease Chest pain Cholelithiasis Chronic kidney disease Constipation COPD (chronic obstructive pulmonary disease) Depression Diabetes mellitus Dyspnea on exertion Essential hypertension Gallstones Gastric reflux GERD (gastroesophageal reflux disease) Gout Hepatic steatosis History of cholelithiasis History of chronic back pain Hydronephrosis Hyperlipidemia Hypersomnia Hypertension Hypothyroidism Iron deficiency anemia Microcytic anemia Migraine headache Morbid obesity with BMI of 40.0-44.9, adult Non-smoker Noncompliance DAVY treated with BiPAP Rash Restless leg syndrome Seasonal allergies Shortness of breath on exertion Sleep apnea Ureterolithiasis UTI (urinary tract infection) Vitamin B12 deficiency Vitamin D deficiency Wears glasses Home Medications albuterol sulfate 90 mcg/actuation aerosol inhaler 2 puff PO Q4H PRN PRN Shortness Of Breath 11/21/15 [History Last Taken 01/05/21] citalopram 40 mg tablet 40 mg PO DAILY antidepressant/antianxiety 07/27/19 [History Last Taken 01/05/21] megestrol 40 mg tablet 40 mg PO QHS for heavy menses 09/28/19 [History Last Taken 01/05/21] acetaminophen 650 mg tablet,extended release 1,300 mg PO QHS pain 04/02/20 [History Last Taken 01/05/21] amlodipine 5 mg tablet 5 mg PO DAILY blood pressure 04/02/20 [History Last Taken 01/05/21] ascorbic acid (vitamin C) 500 mg tablet 500 mg PO DAILY supplement 04/02/20 [History Last Taken 01/05/21] budesonide-formoterol HFA 160 mcg-4.5 mcg/actuation aerosol inhaler (Symbicort) 2 puff inhalation BID inhaler 04/02/20 [History Last Taken 01/05/21] cholecalciferol (vitamin D3) 1,250 mcg (50,000 unit) capsule 50,000 unit PO QWEEK SUPPLEMENT 04/02/20 [History Last Taken 01/05/21] cyanocobalamin (vitamin B-12) 1,000 mcg tablet 1,000 mcg PO DAILY Supplement 04/02/20 [History Last Taken 01/05/21] empagliflozin 25 mg tablet (Jardiance) 25 mg PO DAILY diabetes 04/02/20 [History Last Taken 01/05/21] ferrous sulfate 325 mg (65 mg iron) tablet 325 mg PO DAILY supplement 04/02/20 [History Last Taken 01/05/21] hydroxyzine HCl 25 mg tablet 25 mg PO TID PRN Anxiety 04/02/20 [History Last Taken 01/05/21] loratadine 10 mg tablet 10 mg PO DAILY allergies 04/02/20 [History Last Taken 01/05/21] magnesium oxide 500 mg tablet 500 mg PO DAILY supplement 04/02/20 [History Last Taken 01/05/21] meloxicam 15 mg tablet 15 mg PO DAILY arthritis 04/02/20 [History Last Taken 01/05/21] omeprazole 40 mg capsule,delayed release 40 mg PO DAILY reflux 04/02/20 [History Last Taken 01/05/21] promethazine 25 mg tablet 25 mg PO Q6H PRN Nausea 04/02/20 [History Last Taken 01/05/21] topiramate 100 mg tablet 100 mg PO DAILY migraines 04/02/20 [History Last Taken 01/05/21] ubrogepant 100 mg tablet (Ubrelvy) 100 mg PO ONCE migraines 04/02/20 [History Last Taken 01/05/21] rimegepant 75 mg disintegrating tablet 75 mg PO ONCE migraines 06/19/20 [History Last Taken 01/05/21] fluticasone fur. 100 mcg-umeclid 62.5 mcg-vilant 25 mcg inhalat.powder (Trelegy Ellipta) 1 ea inhalation DAILY copd 08/14/20 [History Last Taken 01/05/21] rosuvastatin 40 mg tablet (Crestor) 40 mg PO QHS cholesterol 08/14/20 [History Last Taken 01/05/21] valsartan 80 mg tablet 160 mg PO DAILY blood pressure 08/14/20 [History Last Taken 01/05/21] gabapentin 100 mg capsule 300 mg PO DAILY neuropathy 09/30/20 [History Last Taken 01/05/21] phenazopyridine 200 mg tablet (Pyridium) 200 mg PO TID PRN PRN Bladder Spasms 7 days #30 tabs 01/06/21 [Rx Last Taken Unknown] ketorolac 10 mg tablet 10 mg PO Q6H PRN pain 3 days 01/10/21 [Rx Last Taken Unknown] febuxostat 40 mg tablet 40 mg PO DAILY 05/20/21 [History Last Taken Unknown] lorazepam 2 mg tablet 2 mg PO DAILY PRN Anxiety 05/20/21 [History Last Taken Unknown] lubiprostone 8 mcg capsule (Amitiza) 8 mcg PO BID #60 caps 06/24/21 [Rx Last Taken Unknown] ondansetron 4 mg disintegrating tablet 4 mg PO Q8H PRN nausea and vomiting #10 tabs 07/12/21 [Rx Last Taken Unknown] galcanezumab-gnlm 120 mg/mL subcutaneous pen injector (Emgality Pen) 120 mg subcut QMONTH 08/19/21 [History Last Taken Unknown] dicyclomine 20 mg tablet 20 mg PO BID PRN abdominal cramping #14 tabs 10/17/21 [Rx Last Taken Unknown] ondansetron 4 mg disintegrating tablet 4 mg PO Q8H PRN nausea and vomiting #10 tabs 10/17/21 [Rx Last Taken Unknown] atogepant 30 mg tablet (Qulipta) 40 mg PO DAILY 11/17/21 [History Last Taken Unknown] tramadol 50 mg tablet 50 mg PO 11/17/21 [History Last Taken Unknown] levothyroxine 175 mcg tablet 175 mcg PO DAILY #30 tabs 11/19/21 [Rx Last Taken Unknown] omeprazole 40 mg capsule,delayed release 40 mg PO DAILY #30 caps 12/04/21 [Rx Last Taken Unknown] ondansetron 4 mg disintegrating tablet 4 mg PO Q6H PRN nausea and vomiting #10 tabs 12/04/21 [Rx Last Taken Unknown] Allergy/AdvReac Type Severity Reaction Status Date / Time hydrochlorothiazide AdvReac Intermediate Contributes Verified 11/17/21 14:12 to gout naproxen [From Naprosyn] AdvReac Intermediate Nausea Verified 11/17/21 14:12 aspirin AdvReac Nausea Verified 11/17/21 14:12 Family History Father , Age 72 Hypertension Mother CAD (coronary artery disease) Myocardial infarction, Onset Age: 55 Hypertension Sister CAD (coronary artery disease) Brother Cancer Surgical History History of carpal tunnel release History of left heart catheterization (11/11/20) history of uterine ablation Previous section Social History Smoking Status: Never smoker alcohol intake: never substance use type: does not use caffeine: No ROS ROS ED Constitutional Constitutional ED: Denies chills, fever(s) or sweats Eyes Eyes: Denies change in vision ENT ENT ED: Denies dysphagia or sore throat Cardiovascular Cardiovascular: Reports chest pain; Denies leg edema, palpitations or racing heartbeat Respiratory/Chest Respiratory/Chest: Denies cough, dyspnea or dyspnea on exertion Gastrointestinal Gastrointestinal: Reports abdominal pain, nausea and vomiting; Denies diarrhea Genitourinary Genitourinary ED: Denies dysuria, hematuria or urinary frequency Musculoskeletal Musculoskeletal: Denies back pain, extremity pain or neck pain Integumentary Denies rash or wounds Neurologic Neurologic: Denies headache(s), paresthesias or weakness Psychiatric Psychiatric: Reports anxiety EXAM Physical Exam Const Vital Signs: 12/04/21 12:03 12/04/21 12:45 12/04/21 12:45 Temperature 97.3 F L Temperature Source Temporal Pulse Rate 81 84 Respiratory Rate 18 16 Respiratory Effort Normal Respiratory Pattern Normal Blood Pressure 198/104 H 173/96 H Blood Pressure Mean 135 121 Pulse Ox 100 99 Oxygen Delivery Method Room Air 12/04/21 14:10 Temperature Temperature Source Pulse Rate 86 Respiratory Rate 20 H Respiratory Effort Respiratory Pattern Blood Pressure 171/110 H Blood Pressure Mean 130 Pulse Ox 97 Oxygen Delivery Method Room Air Positive well nourished, well developed and obese General Appearance ED: well developed and NAD Nutritional Appearance: obese HEENT Reports moist mucous membranes normocephalic and atraumatic Eyes PERRL, EOMs intact bilaterally and conjunctivae normal General Eye ED: Yes normal appearance of both eyes Neck no lymphadenopathy and supple Neck Narrative: No meningismus General: Negative for tenderness Chest Wall Chest: Negative for tenderness Resp normal respiratory effort and normal air movement Effort and Inspection: symmetric chest movement; Negative for respiratory distress Cardio regular rate, regular rhythm and no murmurs Peripheral Pulses: pulses 2+ throughout GI normal to inspection, nondistended, normoactive bowel sounds GI Narrative: Mid abdominal tenderness negative Mclean's or McBurney's tenderness. No guarding or rebound. Palpation: Negative for guarding or rebound tenderness present Back/Spine no CVA tenderness and no thoracic nor lumbar tenderness Extremity normal to inspection General Extremety ED: Negative for edema or tenderness General Extremity: Negative for edema Neuro oriented x3, CN's II-XII intact bilaterally and no sensory deficits noted Sensorium / Orientation: awake and alert Skin no rashes or lesions noted and no wounds MDM MDM MDM Narrative Medical decision making narrative: Patient presenting multiple complaints. Headache with no focal deficits. Chest pains with a normal EKG. Reports abdominal pain with vomiting. Soft abdomen... Lungs IV fluids abdominal labs with troponin. She is treated Reglan Benadryl help with headaches nausea symptoms and her anxiety. Reported by nursing still nauseated for additional Zofran was given. Chest x-ray 2 views reviewed by myself read by radiology normal lungs borderline cardiomegaly. 1400: Abdominal labs returning normal potassium 3.3 creatinine 1.34 history of CKD. GFR at 44. She is given fluids. Reporting increasing chest pains. She had elevated blood pressure. She will be treated with morphine CT chest abdomen pelvis obtained for further evaluation. 1545: CT results no acute process bilateral renal cysts with diverticulosis and no diverticulitis. Fatty liver noted. Patient had chest discomfort with GI cocktail given with improving symptoms. She is able to tolerate oral intake with potassium. She is history of reflux however not any medications were placed on omeprazole prescription for Zofran to use as needed. To use Tylenol as needed for headaches. Follow-up with her doctor with return precautions. All questions were answered. Of note review of records she had a heart cath October [address] Christianson. Very minimal disease to the LAD. Less likely cardiac in nature with this cath a year ago. Lab Data Attestation: I reviewed the patient's lab results. Labs: Laboratory Results - last 24 hr 1012/04/21 12/04/21 12:45 12:45 12:45 WBC 9.6 RBC 3.73 L Hgb 13.3 Hct 41.0 MCV 109.9 H MCH 35.7 H MCHC 32.4 RDW Std Deviation 60.3 H RDW Coeff of Alfredo 14.9 H Plt Count 315 MPV 10.3 Immature Gran % (Auto) 0.500 Neut % (Auto) 77.9 H Lymph % (Auto) 12.4 L Sutter % (Auto) 7.2 Eos % (Auto) 1.3 Baso % (Auto) 0.7 Absolute Neuts (auto) 7.4 Absolute Lymphs (auto) 1.19 Nucleated RBC % 0 Sodium 140 Potassium 3.3 L Chloride 108 H Carbon Dioxide 21.0 Anion Gap 11 BUN 9 Creatinine 1.34 H Estim Creat Clear Calc 42.89 Est GFR (MDRD) Af Amer 54 L Est GFR (MDRD) Non-Af 44 L BUN/Creatinine Ratio 6.7 L Glucose 127 H Calcium 10.1 Total Bilirubin 0.90 AST 22 ALT 24 Alkaline Phosphatase 124 H Troponin I High Sens 8 Total Protein 9.1 H Albumin 4.4 Globulin 4.7 H Albumin/Globulin Ratio 0.9 Lipase 151 Radiography Diagnostic Testing: Clinical Impression(s) from Imaging Studies Chest X-Ray 12/04/21 12:58 IMPRESSION: Borderline cardiomegaly. The lungs are clear. Electronically Signed: Seun Vieira MD at 13:49 EDT , Chest/Abdomen/Pelvis CT 12/04/21 13:58 IMPRESSION: Scattered sigmoid diverticula. Diffuse fatty infiltration of the liver. Bilateral parapelvic renal cysts. Electronically Signed: Seun Vieira MD at 15:00 EDT , EKG Initial EKG: Attestation: I personally reviewed and interpreted this EKG as follows: Comments: Sinus rate of 83, no ST changes. Artifacts at baseline. Discharge Plan Triage Chief Complaint: General Illness ED Provider: Gm Martinez Dx/Rx/DC Orders Clinical Impression: Chest pain, Abdominal pain, Nausea & vomiting, Acute hypokalemia, Renal cyst, Headache, Essential hypertension Instructions: Abdominal Pain, Simple Kidney Cysts, ED Chest Pain, Uncertain Cause, ED Vomiting (Adult) Prescriptions: New omeprazole 40 mg capsule,delayed release(DR/EC) 40 mg PO DAILY Qty: 30 0RF ondansetron 4 mg tablet,disintegrating 4 mg PO Q6H PRN (Reason: nausea and vomiting) Qty: 10 0RF No Action topiramate 100 mg tablet 100 mg PO DAILY Label Comments: TAKE 1 TABLET BY MOUTH TWICE DAILY omeprazole 40 mg capsule,delayed release(DR/EC) 40 mg PO DAILY Label Comments: TAKE 1 CAPSULE BY MOUTH DAILY promethazine 25 mg tablet 25 mg PO Q6H PRN (Reason: Nausea) Label Comments: take 1 tablet by oral route every 6 hours as needed Jardiance 25 mg tablet 25 mg PO DAILY magnesium oxide 500 mg tablet 500 mg PO DAILY Ubrelvy 100 mg tablet 100 mg PO ONCE Rx Instructions: as a single dose; may repeat once in >=2 hours after first dose if needed amlodipine 5 mg tablet 5 mg PO DAILY loratadine 10 mg tablet 10 mg PO DAILY cholecalciferol (vitamin D3) 1,250 mcg (50,000 unit) capsule 50,000 unit PO QWEEK Rx Instructions: PT takes on Tuesday meloxicam 15 mg tablet 15 mg PO DAILY cyanocobalamin (vitamin B-12) 1,000 mcg tablet 1,000 mcg PO DAILY Label Comments: TAKE 1 TABLET DAILY acetaminophen 650 mg tablet extended release 1,300 mg PO QHS ascorbic acid (vitamin C) 500 mg tablet 500 mg PO DAILY Label Comments: TAKE 1 TABLET DAILY ferrous sulfate 325 mg (65 mg iron) tablet 325 mg PO DAILY budesonide-formoterol [Symbicort] 160-4.5 mcg/actuation HFA aerosol inhaler 2 puff INHALATION BID rimegepant 75 mg tablet,disintegrating 75 mg PO ONCE gabapentin 100 mg capsule 300 mg PO DAILY Emgality Pen 120 mg/mL pen injector 120 mg subcut QMONTH tramadol 50 mg tablet 50 mg PO Label Comments: TAKE 1 TABLET BY MOUTH 2CTIMES A DAY Qulipta 30 mg tablet 40 mg PO DAILY lorazepam 2 mg tablet 2 mg PO DAILY PRN (Reason: Anxiety) febuxostat 40 mg tablet 40 mg PO DAILY lubiprostone [Amitiza] 8 mcg capsule 8 mcg PO BID Qty: 60 1RF albuterol sulfate 1 PUFF inhaler 2 puff PO Q4H PRN PRN (Reason: Shortness Of Breath) Label Comments: megestrol 40 mg tablet 40 mg PO QHS valsartan 80 mg tablet 160 mg PO DAILY rosuvastatin [Crestor] 40 mg tablet 40 mg PO QHS Trelegy Ellipta 100-62.5-25 mcg blister with device 1 ea INHALATION DAILY Label Comments: INHALE 1 PUFF BY MOUTH DAILY with good oral care phenazopyridine [Pyridium] 200 MG tablet 200 mg PO TID PRN PRN (Reason: Bladder Spasms) 7 Days Qty: 30 0RF ketorolac 10 mg tablet 10 mg PO Q6H PRN (Reason: pain) 3 Days 0RF ondansetron 4 mg tablet,disintegrating 4 mg PO Q8H PRN (Reason: nausea and vomiting) Qty: 10 0RF dicyclomine 20 mg tablet 20 mg PO BID PRN (Reason: abdominal cramping) Qty: 14 0RF ondansetron 4 mg tablet,disintegrating 4 mg PO Q8H PRN (Reason: nausea and vomiting) Qty: 10 0RF citalopram 40 mg tablet 40 mg PO DAILY hydroxyzine HCl 25 mg tablet 25 mg PO TID PRN (Reason: Anxiety) levothyroxine 175 mcg tablet 175 mcg PO DAILY Qty: 30 6RF Primary Care Provider: Casey Lutz NP Referrals: Casey Lutz [employer]PERT, [employer] [Primary Care Provider] - 3-5 Days Activity Restrictions/Additional Instructions: Cardiac work-up negative. CT chest abdomen pelvis with no acute process noted bilateral renal cyst diverticulosis without diverticulitis. Normal appendix. Take medications as prescribed. Tylenol as needed for headache symptoms. Patient follow-up with your doctor. Return if any worsening symptoms. Disposition Disposition: Home, Self Care Discharge Date/Time: 12/04/21 16:05
[2021-12-04] MEDS: Ondansetron 4 MG/2 ML Vial IV (13:43)
--- NOTE | 2021-12-04 13:58 | CT_ITS ---
STUDY: CT CHEST, ABDOMEN T PELVIS WITH CONTRAST REASON FOR EXAM: Female, 51 years old. Abdominal pain. Shortness of breath. Chest pain. RADIATION DOSAGE (If Supplied By Facility): CTDIvol = ( 22.21 ) mGy, DLP = ( 2360.53 ) mGycm TECHNIQUE: Transaxial imaging was performed following intravenous administration of IV 100mL Isovue-300. Individualized dose optimization techniques were used for this CT. COMPARISON: Comparison is made with prior CT scan the thorax dated 02/13/2021. FINDINGS: CHEST The lungs are normal. There is no demonstrated pleural abnormality. There are calcifications of the coronary arteries. Normal mediastinum. Normal hilar regions. Normal unenhanced pulmonary arteries. Normal aorta arch and descending thoracic aorta. There are degenerative changes of the thoracic spine. ABDOMEN The visualized lung bases are unremarkable. The visualized portions of the heart are within normal limits. There is decreased attenuation of the liver consistent with steatosis. Normal gallbladder and extrahepatic biliary system. Normal spleen. Normal pancreas. Normal bilateral adrenal glands. There are small bilateral parapelvic renal cysts. Normal visualized stomach. Normal small intestine. Moderate amount of fecal material seen in the colon. Scattered sigmoid diverticular disease. The appendix is visualized and appears normal. There is scattered atherosclerotic calcification of the abdominal aorta, without a demonstrated aneurysm. Normal inferior vena cava. Normal retroperitoneum. Normal abdominal wall. Normal osseous structures. PELVIS Normal urinary bladder. There is no pelvic fluid. There is no pelvic lymphadenopathy or mass lesion. There is diffuse atherosclerotic calcification of the pelvic arteries. CT/CT Chest, Abd, Pel w/Contrast IMPRESSION: Scattered sigmoid diverticula. Diffuse fatty infiltration of the liver. Bilateral parapelvic renal cysts. Electronically Signed: Seun Vieira MD at 15:00 EDT ,
[2021-12-04] MEDS: Morphine 4 MG/ML Syringe IV (13:59)
[2021-12-04 14:10] VITALS: BP 171/110; PULSE 86; RESP 20; O2SAT 97
[2021-12-04 14:25] LABS: Troponin-I HS 8 pg/mL (3.0-54.0)
[2021-12-04] MEDS: Mag Hydrox/Al Hydrox/Simeth 30 ML UDC PO (15:30)
[2021-12-04] MEDS: Potassium Chloride Oral Tablet 20 MEQ PO (15:30)
== END 2021-12-04 16:05 | disposition home or self-care (01) ==
PROVIDERS: Emergency Provider Emergency Medicine; PCP Nurse Practitioner Family; Visit Provider Emergency Medicine
DX: R07.9 Chest pain, unspecified (principal); J44.9 Chronic obstructive pulmonary disease, unspecified; E66.01 Morbid (severe) obesity due to excess calories; Z68.41 Body mass index [BMI] 40.0-44.9, adult; E11.9 Type 2 diabetes mellitus without complications; Q61.02 Congenital multiple renal cysts; K57.30 Diverticulosis of large intestine without perforation or abscess without bleeding; R11.2 Nausea with vomiting, unspecified; R10.9 Unspecified abdominal pain; E87.6 Hypokalemia; I12.9 Hypertensive chronic kidney disease with stage 1 through stage 4 chronic kidney disease, or unspecified chronic kidney disease; N18.9 Chronic kidney disease, unspecified; E78.5 Hyperlipidemia, unspecified; E03.9 Hypothyroidism, unspecified; E55.9 Vitamin D deficiency, unspecified; K21.9 Gastro-esophageal reflux disease without esophagitis; M19.90 Unspecified osteoarthritis, unspecified site; F32.A Depression, unspecified; F41.9 Anxiety disorder, unspecified; Z79.84 Long term (current) use of oral hypoglycemic drugs; Z79.85 Long-term (current) use of injectable non-insulin antidiabetic drugs; Z79.899 Other long term (current) drug therapy; Z82.49 Family history of ischemic heart disease and other diseases of the circulatory system
CPT/HCPCS: 71046; 71260; 74177; 80053; 83690; 84484; 85025; 93005; 96361; 96374; 96375; 96376; 99284; J7030; Q9967; A4216; J2405

== ENCOUNTER → 2022-01-27 | Outpatient (CLI) | payer MEDICARE, MEDICAID, SELFPAY ==
[2022-01-27 15:37] LABS: Vitamin D,25 Hydroxy 26.2 ng/mL
[2022-01-27 15:43] LABS: ALB/GLOB Ratio 0.9 RATIO (0.9-2.4); AST(SGOT) 14 U/L (15-37); Alanine Aminotransfer ALT/SGPT 22 U/L (13-56); Albumin, Serum 3.4 g/dL (3.2-5.0); Alkaline Phosphatase 110 U/L (45-117); Anion Gap 9 (5-15); BUN 11 mg/dL (7-18); BUN/Creat Ratio 8.2 RATIO (10-20); CRP 7.16 mg/L (0.0-3.0); Calcium,Total 9.3 mg/dL (8.5-10.1); Chloride 104 mmol/L (98-107); Creatinine, Serum 1.34 mg/dL (0.55-1.02); EST Glomerular Filtration Rate 44 mL/min (>60); Est Glom Filt Rate - Afr Amer 54 mL/min (>60); Globulin 3.8 g/dL (2.2-4.2); Glucose 99 mg/dL (74-106); Potassium 4.4 mmol/L (3.5-5.1); Protein, Total 7.2 g/dL (6.4-8.2); Sodium Level 137 mmol/L (136-145)
[2022-01-29 16:09] LABS: Endomysial Antibody IgA Negative (Negative)
[2022-01-29 18:33] LABS: Immunoglobulin A 330 mg/dL (87-352); t-Transglutaminase IgA 4 U/mL (0-3)
== END | disposition home or self-care (01) ==
LOC: MTLAB 11:47
PROVIDERS: PCP Nurse Practitioner Family; Referring Provider Internal Medicine Gastroenterology; Visit Provider Internal Medicine Gastroenterology
DX: R10.9 Unspecified abdominal pain (principal); K90.0 Celiac disease
CPT/HCPCS: 36415; 80053; 82306; 82784; 83516; 86140; 86255

== ENCOUNTER → 2022-01-30 | Outpatient (CLI) | payer MEDICARE, MEDICAID, SELFPAY ==
[2022-01-30 10:51] LABS: Hematocrit 40.4 % (37-47); Hemoglobin 12.9 g/dL (12.0-15.0); Mean Corp Hgb Conc 31.9 g/dL (32-36); Mean Corpuscular Hgb 35.7 pg (27.0-32.0); Mean Corpuscular Volume 111.9 fL (81-99); Mean Platelet Vol. 9.5 fl (6.2-12.0); POSITIVE MORPHOLOGY YES; Platelet Count 335 K/mm3 (150-450); RBC Distribution Width SD 65.6 fl (35.1-43.9); Red Blood Count 3.61 M/mm3 (4.2-5.4)
[2022-01-30 11:23] LABS: Scan Indicated on CBC? Y/N YES- FLAGS NOTED
[2022-01-30 11:32] LABS: Hemoglobin A1c 6.2 % (3.8-5.6)
[2022-01-30 11:52] LABS: Microalbumin,Random Urine 10.1 mg/L (NO RANGE EST.)
[2022-01-30 12:12] LABS: ALB/GLOB Ratio 0.8 RATIO (0.9-2.4); AST(SGOT) 18 U/L (15-37); Alanine Aminotransfer ALT/SGPT 18 U/L (13-56); Albumin, Serum 3.4 g/dL (3.2-5.0); Alkaline Phosphatase 93 U/L (45-117); Anion Gap 7 (5-15); BUN 11 mg/dL (7-18); BUN/Creat Ratio 8.6 RATIO (10-20); Calcium,Total 9.5 mg/dL (8.5-10.1); Chloride 108 mmol/L (98-107); Cholesterol 254 mg/dL (200); Creatinine, Serum 1.28 mg/dL (0.55-1.02); EST Glomerular Filtration Rate 47 mL/min (>60); Est Glom Filt Rate - Afr Amer 56 mL/min (>60); Free T3 0.6 pg/mL (2.18-3.98); Globulin 4.3 g/dL (2.2-4.2); Glucose 103 mg/dL (74-106); High Density Lipoprotein 47 mg/dL; Iron 75 ug/dL (50-170); Iron Binding Capacity,Total 435 ug/dL (250-450); Potassium 4.1 mmol/L (3.5-5.1); Protein, Total 7.7 g/dL (6.4-8.2); Sodium Level 138 mmol/L (136-145); T4 Free Direct 0.13 ng/dL (0.76-1.46); Triglycerides 96 mg/dL; Very Low Density Lipoprotein 19 mg/dL (5-40)
[2022-02-01 08:19] LABS: PTHIN 51.7 pg/mL (18.4-80.1)
[2022-02-01 09:01] LABS: Vitamin B12 303 pg/mL (211-911); Vitamin D,25 Hydroxy 30.1 ng/mL
[2022-02-09 11:27] LABS: Renin, Plasma 0.594 ng/mL/hr (0.167-5.380)
== END | disposition home or self-care (01) ==
LOC: LAB 10:17
PROVIDERS: PCP Nurse Practitioner Family; Visit Provider Nurse Practitioner Family
DX: E11.22 Type 2 diabetes mellitus with diabetic chronic kidney disease (principal); N18.4 Chronic kidney disease, stage 4 (severe); I12.9 Hypertensive chronic kidney disease with stage 1 through stage 4 chronic kidney disease, or unspecified chronic kidney disease; E78.00 Pure hypercholesterolemia, unspecified; E03.9 Hypothyroidism, unspecified
CPT/HCPCS: 36415; 80053; 80061; 82043; 82306; 82607; 83036; 83540; 83550; 83970; 84244; 84439; 84443; 84481; 85027

== ENCOUNTER → 2022-02-24 | Outpatient (CLI) | payer MEDICARE, MEDICAID, SELFPAY | END | disposition home or self-care (01) | LOC: PSN 09:18 | PROVIDERS: PCP Nurse Practitioner Family; Referring Provider Physician Assistant Medical; Visit Provider Physician Assistant Medical | DX: R55 Syncope and collapse (principal) | CPT/HCPCS: 93225; 93226 ==

== ENCOUNTER 2022-03-03 02:18 | Emergency (ER) | payer MEDICARE, MEDICAID, SELFPAY ==
[2022-03-03 02:20] VITALS: BP 185/131; PULSE 96; RESP 16; TEMP 36.6; O2SAT 99; BMI 46.7
--- NOTE | 2022-03-03 02:37 | EX.ED.DYSGE1 ---
HPI History of Present Illness Chief Complaint: Flank Pain Informant: patient Onset/Context/Timing Onset: Days (2) Context: Gradual Onset Timing: Intermittent and Lasts (3 hours) Quality: Sharp Location: Right flank and right low back Worsened by: Nothing Relieved by: Nothing Associated Symptoms Associated Symptoms: Nausea and vomiting Narrative Narrative: Patient presents with right flank pain and right low back pain that has been constant for the past 2 days. Patient states it is gradually gotten worse. Patient states it comes and goes. Patient states it has been constant for the last 3 hours. Patient describes her pain as sharp. Patient states it is over the right flank and lower back. Patient states nothing makes it worse and nothing makes it better. Patient admits to some nausea and vomiting. Patient admits to increased belching and passing gas. Patient denies any diarrhea. Patient admits to some urinary frequency but denies any dysuria or hematuria. [facility] Medical History Abnormal glucose Anemia Anxiety Arthritis Asthma BiPAP (biphasic positive airway pressure) dependence Cardiac murmur Celiac disease Chest pain Cholelithiasis Chronic kidney disease Constipation COPD (chronic obstructive pulmonary disease) Depression Diabetes mellitus Dyspnea on exertion Essential hypertension Gallstones Gastric reflux GERD (gastroesophageal reflux disease) Gout Hepatic steatosis History of cholelithiasis History of chronic back pain Hydronephrosis Hyperlipidemia Hypersomnia Hypertension Hypothyroidism Iron deficiency anemia Microcytic anemia Migraine headache Morbid obesity with BMI of 40.0-44.9, adult Non-smoker Noncompliance DAVY treated with BiPAP Rash Restless leg syndrome Seasonal allergies Shortness of breath on exertion Sleep apnea Ureterolithiasis UTI (urinary tract infection) Vitamin B12 deficiency Vitamin D deficiency Wears glasses Home Medications albuterol sulfate 90 mcg/actuation aerosol inhaler 2 puff PO Q4H PRN PRN Shortness Of Breath 11/21/15 [History Last Taken 01/05/21] citalopram 40 mg tablet 40 mg PO DAILY antidepressant/antianxiety 07/27/19 [History Last Taken 01/05/21] megestrol 40 mg tablet 40 mg PO QHS for heavy menses 09/28/19 [History Last Taken 01/05/21] acetaminophen 650 mg tablet,extended release 1,300 mg PO QHS pain 04/02/20 [History Last Taken 01/05/21] amlodipine 5 mg tablet 5 mg PO DAILY blood pressure 04/02/20 [History Last Taken 01/05/21] ascorbic acid (vitamin C) 500 mg tablet 500 mg PO DAILY supplement 04/02/20 [History Last Taken 01/05/21] budesonide-formoterol HFA 160 mcg-4.5 mcg/actuation aerosol inhaler (Symbicort) 2 puff inhalation BID inhaler 04/02/20 [History Last Taken 01/05/21] cholecalciferol (vitamin D3) 1,250 mcg (50,000 unit) capsule 50,000 unit PO QWEEK SUPPLEMENT 04/02/20 [History Last Taken 01/05/21] cyanocobalamin (vitamin B-12) 1,000 mcg tablet 1,000 mcg PO DAILY Supplement 04/02/20 [History Last Taken 01/05/21] empagliflozin 25 mg tablet (Jardiance) 25 mg PO DAILY diabetes 04/02/20 [History Last Taken 01/05/21] ferrous sulfate 325 mg (65 mg iron) tablet 325 mg PO DAILY supplement 04/02/20 [History Last Taken 01/05/21] hydroxyzine HCl 25 mg tablet 25 mg PO TID PRN Anxiety 04/02/20 [History Last Taken 01/05/21] loratadine 10 mg tablet 10 mg PO DAILY allergies 04/02/20 [History Last Taken 01/05/21] magnesium oxide 500 mg tablet 500 mg PO DAILY supplement 04/02/20 [History Last Taken 01/05/21] meloxicam 15 mg tablet 15 mg PO DAILY arthritis 04/02/20 [History Last Taken 01/05/21] omeprazole 40 mg capsule,delayed release 40 mg PO DAILY reflux 04/02/20 [History Last Taken 01/05/21] promethazine 25 mg tablet 25 mg PO Q6H PRN Nausea 04/02/20 [History Last Taken 01/05/21] topiramate 100 mg tablet 100 mg PO DAILY migraines 04/02/20 [History Last Taken 01/05/21] ubrogepant 100 mg tablet (Ubrelvy) 100 mg PO ONCE migraines 04/02/20 [History Last Taken 01/05/21] rimegepant 75 mg disintegrating tablet 75 mg PO ONCE migraines 06/19/20 [History Last Taken 01/05/21] fluticasone fur. 100 mcg-umeclid 62.5 mcg-vilant 25 mcg inhalat.powder (Trelegy Ellipta) 1 ea inhalation DAILY copd 08/14/20 [History Last Taken 01/05/21] rosuvastatin 40 mg tablet (Crestor) 40 mg PO QHS cholesterol 08/14/20 [History Last Taken 01/05/21] valsartan 80 mg tablet 160 mg PO DAILY blood pressure 08/14/20 [History Last Taken 01/05/21] gabapentin 100 mg capsule 300 mg PO DAILY neuropathy 09/30/20 [History Last Taken 01/05/21] phenazopyridine 200 mg tablet (Pyridium) 200 mg PO TID PRN PRN Bladder Spasms 7 days #30 tabs 01/06/21 [Rx Last Taken Unknown] ketorolac 10 mg tablet 10 mg PO Q6H PRN pain 3 days 01/10/21 [Rx Last Taken Unknown] febuxostat 40 mg tablet 40 mg PO DAILY 05/20/21 [History Last Taken Unknown] lorazepam 2 mg tablet 2 mg PO DAILY PRN Anxiety 05/20/21 [History Last Taken Unknown] lubiprostone 8 mcg capsule (Amitiza) 8 mcg PO BID #60 caps 06/24/21 [Rx Last Taken Unknown] ondansetron 4 mg disintegrating tablet 4 mg PO Q8H PRN nausea and vomiting #10 tabs 07/12/21 [Rx Last Taken Unknown] galcanezumab-gnlm 120 mg/mL subcutaneous pen injector (Emgality Pen) 120 mg subcut QMONTH 08/19/21 [History Last Taken Unknown] dicyclomine 20 mg tablet 20 mg PO BID PRN abdominal cramping #14 tabs 10/17/21 [Rx Last Taken Unknown] ondansetron 4 mg disintegrating tablet 4 mg PO Q8H PRN nausea and vomiting #10 tabs 10/17/21 [Rx Last Taken Unknown] atogepant 30 mg tablet (Qulipta) 40 mg PO DAILY 11/17/21 [History Last Taken Unknown] tramadol 50 mg tablet 50 mg PO 11/17/21 [History Last Taken Unknown] levothyroxine 175 mcg tablet 175 mcg PO DAILY #30 tabs 11/19/21 [Rx Last Taken Unknown] omeprazole 40 mg capsule,delayed release 40 mg PO DAILY #30 caps 12/04/21 [Rx Last Taken Unknown] ondansetron 4 mg disintegrating tablet 4 mg PO Q6H PRN nausea and vomiting #10 tabs 12/04/21 [Rx Last Taken Unknown] hydrocodone-acetaminophen 5-325mg 5mg-325mg 1 tab PO Q6H PRN PRN Pain 3 days #10 TABLETS 03/03/22 [Rx Last Taken Unknown] Allergy/AdvReac Type Severity Reaction Status Date / Time hydrochlorothiazide AdvReac Intermediate Contributes Verified 03/03/22 02:28 to gout naproxen [From Naprosyn] AdvReac Intermediate Nausea Verified 03/03/22 02:28 aspirin AdvReac Nausea Verified 03/03/22 02:28 Family History Father , Age 72 Hypertension Mother CAD (coronary artery disease) Myocardial infarction, Onset Age: 55 Hypertension Sister CAD (coronary artery disease) Brother Cancer Surgical History History of carpal tunnel release History of left heart catheterization (11/11/20) history of uterine ablation Previous section Social History Smoking Status: Never smoker alcohol intake: never substance use type: does not use caffeine: No ROS ROS ED Constitutional Constitutional ED: Denies chills or fever(s) Eyes Eyes: Denies blurry vision or change in vision ENT ENT ED: Denies rhinorrhea or sore throat Cardiovascular Cardiovascular: Denies chest pain or palpitations Respiratory/Chest Respiratory/Chest: Reports cough; Denies dyspnea Gastrointestinal Gastrointestinal: Reports nausea and vomiting Genitourinary Genitourinary ED: Reports urinary frequency; Denies dysuria or hematuria Musculoskeletal Musculoskeletal: Reports back pain; Denies neck pain Integumentary Denies abscess or rash Neurologic Neurologic: Denies headache(s) or weakness Allergic/Immunologic Allergic/Immunologic ED: Denies mouth swelling or urticaria EXAM Physical Exam Const Vital Signs: 03/03/22 02:20 03/03/22 02:29 03/03/22 04:20 Temperature 97.9 F Temperature Source Oral Pulse Rate 96 65 Respiratory Rate 16 15 Respiratory Effort Normal Respiratory Pattern Normal Blood Pressure 185/131 H 149/99 H Blood Pressure Mean 149 115 Pulse Ox 99 95 Oxygen Delivery Method Room Air Positive well nourished, well developed and obese General Appearance ED: well developed and NAD Nutritional Appearance: obese HEENT Reports moist mucous membranes Neck supple and no JVD Resp normal respiratory effort and clear to auscultation bilaterally Cardio regular rate and regular rhythm GI normal to inspection, nondistended, normoactive bowel sounds Palpation: soft and tender RLQ and RUQ Back/Spine General Back: CVA tenderness right Extremity normal to inspection General Extremety ED: Negative for edema or tenderness General Extremity: Negative for edema Neuro oriented x3, CN's II-XII intact bilaterally and no sensory deficits noted Sensorium / Orientation: alert Motor Exam: strength 5/5 throughout Psych mental status grossly normal Skin no rashes or lesions noted MDM MDM MDM Narrative Medical decision making narrative: Patient was given morphine and Zofran here. CBC shows a mild leukocytosis of 15.4. Comprehensive metabolic profile shows a BUN of 21 and creatinine 2.13. Lipase was slightly elevated at 461. Urinalysis shows a leukocyte esterases of 25 with occult blood of 250. There were 50-100 red blood cells but 0 white blood cells. There is 1+ calcium oxalate crystals. CT scan of the abdomen and pelvis was obtained. There is bilateral renal calculi noted. There is a 4 mm right proximal ureteral calculus with hydronephrosis. There are gallstones noted in the gallbladder. There are no other acute abnormalities noted. Patient is feeling somewhat better on reevaluation. Patient was given a prescription for [place]. Patient was given urine strainers. Patient was instructed to follow-up with her primary care physician in 5 to 7 days. Patient was also given urology follow-up. Patient understood and was agreeable with the plan. All questions were answered. Lab Data Attestation: I reviewed the patient's lab results. Labs: Laboratory Results - last 24 hr 03/03/22 03/03/22 03/03/22 03:25 03:25 03:38 WBC 15.4 H RBC 3.97 L Hgb 14.6 Hct 42.6 MCV 107.3 H MCH 36.8 H MCHC 34.3 RDW Std Deviation 65.8 H RDW Coeff of Alfredo 16.4 H Plt Count 377 MPV 10.3 Immature Gran % (Auto) 1.600 H Neut % (Auto) 86.6 H Lymph % (Auto) 7.2 L [place] % (Auto) 4.3 Eos % (Auto) 0.1 Baso % (Auto) 0.2 Absolute Neuts (auto) 13.3 H Absolute Lymphs (auto) 1.11 Nucleated RBC % 0 Differential Comment SCANNED Anisocytosis 2+ Macrocytosis 2+ Stomatocytes RARE Sodium 136 Potassium 3.9 Chloride 105 Carbon Dioxide 22.0 Anion Gap 9 BUN 21 H Creatinine 2.13 H Estim Creat Clear Calc 26.98 Est GFR (MDRD) Af Amer 31 L Est GFR (MDRD) Non-Af 26 L BUN/Creatinine Ratio 9.9 L Glucose 164 H Calcium 10.8 H Total Bilirubin 0.60 AST 35 ALT 30 Alkaline Phosphatase 100 Total Protein 9.0 H Albumin 4.5 Globulin 4.5 H Albumin/Globulin Ratio 1.0 Lipase 461 H Urine Color Yellow Urine Clarity Sl. Cloudy Urine pH 6.0 Ur Specific [place] 1.025 Urine Protein 30 H Urine Glucose (UA) Normal Urine Ketones 5 H Urine Occult Blood 250 H Urine Nitrite Negative Urine Bilirubin Negative Urine Urobilinogen Normal Ur Leukocyte Esterase 25 H Urine RBC 50-100 SEEN Urine WBC 0 SEEN Ur Squamous Epith Cells 0-5 SEEN Calcium Oxalate Crystal 1+ Urine Bacteria RARE Urine Mucus 0 SEEN Radiography Diagnostic Testing: Clinical Impression(s) from Imaging Studies Abdomen/Pelvis CT 03/03/22 02:40 IMPRESSION: 1. Bilateral nephrolithiasis with mild right obstructive uropathy secondary to 4 mm proximal ureteral stone. 2. Probable constipation. 3. Cholelithiasis. 4. Other nonurgent findings within body of report. Electronically Signed: Manuel Schaefer MD at 4:40 EST , Discharge Plan Triage Chief Complaint: Flank Pain ED Provider: Anam Cuevas Dx/Rx/DC Orders Clinical Impression: Calculus of proximal right ureter, Essential hypertension, Morbid obesity with BMI of 45.0-49.9, adult Instructions: ED Kidney Stone w/ Colic Prescriptions: New hydrocodone-acetaminophen [hydrocodone-acetaminophen] 5-325 mg tablet 1 tab PO Q6H PRN PRN (Reason: Pain) 3 Days Qty: 10 0RF No Action topiramate 100 mg tablet 100 mg PO DAILY Label Comments: TAKE 1 TABLET BY MOUTH TWICE DAILY omeprazole 40 mg capsule,delayed release(DR/EC) 40 mg PO DAILY Label Comments: TAKE 1 CAPSULE BY MOUTH DAILY promethazine 25 mg tablet 25 mg PO Q6H PRN (Reason: Nausea) Label Comments: take 1 tablet by oral route every 6 hours as needed Jardiance 25 mg tablet 25 mg PO DAILY magnesium oxide 500 mg tablet 500 mg PO DAILY Ubrelvy 100 mg tablet 100 mg PO ONCE Rx Instructions: as a single dose; may repeat once in >=2 hours after first dose if needed amlodipine 5 mg tablet 5 mg PO DAILY loratadine 10 mg tablet 10 mg PO DAILY cholecalciferol (vitamin D3) 1,250 mcg (50,000 unit) capsule 50,000 unit PO QWEEK Rx Instructions: PT takes on Tuesday meloxicam 15 mg tablet 15 mg PO DAILY cyanocobalamin (vitamin B-12) 1,000 mcg tablet 1,000 mcg PO DAILY Label Comments: TAKE 1 TABLET DAILY acetaminophen 650 mg tablet extended release 1,300 mg PO QHS ascorbic acid (vitamin C) 500 mg tablet 500 mg PO DAILY Label Comments: TAKE 1 TABLET DAILY ferrous sulfate 325 mg (65 mg iron) tablet 325 mg PO DAILY budesonide-formoterol [Symbicort] 160-4.5 mcg/actuation HFA aerosol inhaler 2 puff INHALATION BID rimegepant 75 mg tablet,disintegrating 75 mg PO ONCE gabapentin 100 mg capsule 300 mg PO DAILY Emgality Pen 120 mg/mL pen injector 120 mg subcut QMONTH tramadol 50 mg tablet 50 mg PO Label Comments: TAKE 1 TABLET BY MOUTH 2CTIMES A DAY Qulipta 30 mg tablet 40 mg PO DAILY lorazepam 2 mg tablet 2 mg PO DAILY PRN (Reason: Anxiety) febuxostat 40 mg tablet 40 mg PO DAILY lubiprostone [Amitiza] 8 mcg capsule 8 mcg PO BID Qty: 60 1RF albuterol sulfate 1 PUFF inhaler 2 puff PO Q4H PRN PRN (Reason: Shortness Of Breath) Label Comments: megestrol 40 mg tablet 40 mg PO QHS valsartan 80 mg tablet 160 mg PO DAILY rosuvastatin [Crestor] 40 mg tablet 40 mg PO QHS Trelegy Ellipta 100-62.5-25 mcg blister with device 1 ea INHALATION DAILY Label Comments: INHALE 1 PUFF BY MOUTH DAILY with good oral care phenazopyridine [Pyridium] 200 MG tablet 200 mg PO TID PRN PRN (Reason: Bladder Spasms) 7 Days Qty: 30 0RF ketorolac 10 mg tablet 10 mg PO Q6H PRN (Reason: pain) 3 Days 0RF ondansetron 4 mg tablet,disintegrating 4 mg PO Q8H PRN (Reason: nausea and vomiting) Qty: 10 0RF dicyclomine 20 mg tablet 20 mg PO BID PRN (Reason: abdominal cramping) Qty: 14 0RF ondansetron 4 mg tablet,disintegrating 4 mg PO Q8H PRN (Reason: nausea and vomiting) Qty: 10 0RF omeprazole 40 mg capsule,delayed release(DR/EC) 40 mg PO DAILY Qty: 30 0RF ondansetron 4 mg tablet,disintegrating 4 mg PO Q6H PRN (Reason: nausea and vomiting) Qty: 10 0RF citalopram 40 mg tablet 40 mg PO DAILY hydroxyzine HCl 25 mg tablet 25 mg PO TID PRN (Reason: Anxiety) levothyroxine 175 mcg tablet 175 mcg PO DAILY Qty: 30 6RF Primary Care Provider: Casey Lutz NP Referrals: Britt Robles MD [Med Staff - Active Staff] - 3-5 Days Casey Lutz NP, SOCIETY EDITOR-C [Primary Care Provider] - 3-5 Days Disposition Disposition: Home, Self Care
--- NOTE | 2022-03-03 02:40 | CT_ITS ---
INDICATION: Right flank pain with nausea and vomiting for 2 days EXAMINATION: CT ABDOMEN AND PELVIS WITHOUT CONTRAST TECHNIQUE: Helically acquired images were obtained of the abdomen and pelvis without IV contrast. 2-D reconstructions reviewed. A radiation dose optimization technique was used for this scan. IV Contrast dosage and agent: None. Oral contrast: None. COMPARISON: Contrast-enhanced CT abdomen and pelvis from 12/04/2021 FINDINGS: LOWER CHEST: No acute findings within the imaged lung bases. Normal size heart with coronary arterial calcifications and stents. LIVER: Homogeneous. No discrete mass. GALLBLADDER AND BILIARY TREE: Stones within gallbladder lumen with no significant gallbladder dilatation or pericholecystic edema. No significant biliary ductal dilation. PANCREAS: No discrete mass or peripancreatic edema. SPLEEN: Normal size without discrete mass. ADRENAL GLANDS: Unremarkable. KIDNEYS AND URETERS: Bilateral peripelvic renal cysts again noted with several small bilateral renal calyceal stones. Right renal edema and mild hydronephrosis secondary to 4 mm proximal ureteral stone. Small calcified pelvic phleboliths also noted. PERITONEUM: No peritoneal free air or significant free fluid. No other fluid collection. RETROPERITONEUM: No retroperitoneal mass or pathologic fluid collection. BOWEL: Appendix not visualized but no evidence of appendicitis. Prominent colonic fecal load. No bowel obstruction or significant bowel thickening. LYMPH NODES: No enlarged mesenteric or retroperitoneal lymph nodes. VESSELS: Atherosclerotic calcifications with no abdominal aortic aneurysm. URINARY BLADDER: Empty urinary bladder. REPRODUCTIVE ORGANS: No pelvic masses. ABDOMINAL WALL: No acute findings or significant hernia defect. BONES: Intact with no suspicious osseous lesion. CT/Abdomen/Pelvis without Cont IMPRESSION: 1. Bilateral nephrolithiasis with mild right obstructive uropathy secondary to 4 mm proximal ureteral stone. 2. Probable constipation. 3. Cholelithiasis. 4. Other nonurgent findings within body of report. Electronically Signed: Manuel Schaefer MD at 4:40 EST ,
[2022-03-03] MEDS: Ondansetron 4 MG/2 ML Vial IV (03:28)
[2022-03-03 03:33] LABS: Absolute Lymphocyte Count 1.11 X10^3/uL (0.83-4.51); Absolute Neutrophil Count 13.3 X10^3/uL (2.0-7.7); Basophil# 0.03 X10^3/uL; Basophil% 0.2 % (0-1); Eosinophil# 0.01 X10^3/uL; Eosinophils% 0.1 % (0-5); Hematocrit 42.6 % (37-47); Hemoglobin 14.6 g/dL (12.0-15.0); Lymphocyte # 1.11 X10^3/ul (0.83-4.51); Lymphocyte % 7.2 % (19-41); Mean Corp Hgb Conc 34.3 g/dL (32-36); Mean Corpuscular Hgb 36.8 pg (27.0-32.0); Mean Corpuscular Volume 107.3 fL (81-99); Mean Platelet Vol. 10.3 fl (6.2-12.0); Monocyte# 0.66 X10^3/uL; Monocyte% 4.3 % (0-10); NRBC Flagged by Analyzer 0 % (0-5); Neutrophil # 13.32 X10^3/uL (2.7-7.7); Neutrophil % 86.6 % (47-70); POSITIVE MORPHOLOGY YES; Platelet Count 377 K/mm3 (150-450); RBC Distribution Width CV 16.4 % (11.6-14.6); RBC Distribution Width SD 65.8 fl (35.1-43.9); Red Blood Count 3.97 M/mm3 (4.2-5.4); White Blood Count 15.4 K/mm3 (4.4-11.0)
[2022-03-03] MEDS: Morphine 4 MG/ML Syringe IV (03:34)
[2022-03-03 03:42] LABS: Differential Indicated SCAN CRITERIA MET
[2022-03-03 03:43] LABS: Mucous, Urine 0 SEEN /hpf (<or=2+); White Blood Cells 0 SEEN /hpf (0-5)
[2022-03-03 03:52] LABS: Color, Urine Yellow (Yellow); Glucose, Dipstick Normal (Normal); Ketone-Dipstick 5 mg/dl (Negative); Leukocyte Esterase-Dipstick 25 /ul (Negative); Nitrite-Dipstick Negative (Negative); Occult Blood-Urine 250 /ul (Negative); Protein-Dipstick 30 mg/dl (Negative); Specific Gravity, Urine 1.025 (1.002-1.030); Urine Bilirubin Dipstick Negative (Negative); Urine Clarity Sl. Cloudy (Clear); Urine Urobilinogen Normal (Normal)
[2022-03-03 03:58] LABS: AST(SGOT) 35 U/L (15-37); Alanine Aminotransfer ALT/SGPT 30 U/L (13-56); Albumin, Serum 4.5 g/dL (3.2-5.0); Alkaline Phosphatase 100 U/L (45-117); Anion Gap 9 (5-15); BUN 21 mg/dL (7-18); BUN/Creat Ratio 9.9 RATIO (10-20); Calcium,Total 10.8 mg/dL (8.5-10.1); Chloride 105 mmol/L (98-107); Creatinine, Serum 2.13 mg/dL (0.55-1.02); EST Glomerular Filtration Rate 26 mL/min (>60); Est Glom Filt Rate - Afr Amer 31 mL/min (>60); Estimated Creatinine Clearance 26.98 ml/min; Globulin 4.5 g/dL (2.2-4.2); Glucose 164 mg/dL (74-106); Lipase 461 U/L (73-393); Potassium 3.9 mmol/L (3.5-5.1); Sodium Level 136 mmol/L (136-145)
[2022-03-03 03:58] LABS: Red Blood Cells-Urine 50-100 SEEN /hpf (0-5); Squamous Epithelial Cells - UA 0-5 SEEN /hpf (5-10)
[2022-03-03 03:59] LABS: Bacteria RARE /hpf (None Seen); Calcium Oxalate Crystals Ur 1+ /hpf (<or=2+)
[2022-03-03 04:20] VITALS: BP 149/99; PULSE 65; RESP 15; O2SAT 95
[2022-03-03 04:25] LABS: Anisocytosis 2+; Differential Comment SCANNED; Macrocytosis 2+; Stomatocyte RARE
[2022-03-03] MEDS: HYDROcodone Bitartrate/Apap 5/325 Tablet PO (05:37)
[2022-03-03 06:20] VITALS: BP 169/77; PULSE 79; RESP 18; O2SAT 96
== END 2022-03-03 06:32 | disposition home or self-care (01) ==
PROVIDERS: Emergency Provider Emergency Medicine; PCP Nurse Practitioner Family; Visit Provider Emergency Medicine
DX: N13.2 Hydronephrosis with renal and ureteral calculous obstruction (principal); J44.9 Chronic obstructive pulmonary disease, unspecified; E11.22 Type 2 diabetes mellitus with diabetic chronic kidney disease; E66.01 Morbid (severe) obesity due to excess calories; I12.9 Hypertensive chronic kidney disease with stage 1 through stage 4 chronic kidney disease, or unspecified chronic kidney disease; N18.9 Chronic kidney disease, unspecified; E78.5 Hyperlipidemia, unspecified; K80.20 Calculus of gallbladder without cholecystitis without obstruction; M54.50 Low back pain, unspecified; R10.9 Unspecified abdominal pain; R11.2 Nausea with vomiting, unspecified; R35.0 Frequency of micturition
CPT/HCPCS: 99282; 96374; 96375; 74176; 80053; 81001; 83690; 85025; A4216; J2405

== ENCOUNTER 2022-03-03 18:59 | Emergency (ER) | payer MEDICARE, MEDICAID, SELFPAY ==
[2022-03-03 19:01] VITALS: BP 156/90; PULSE 62; RESP 15; TEMP 36.5; O2SAT 99; BMI 46.9
[2022-03-03 19:03] VITALS: BP 156/90; PULSE 61; RESP 15; O2SAT 98
[2022-03-03] MEDS: 0.9% Normal Saline 1,000 ML 150 ML IV (19:48)
[2022-03-03] MEDS: Ondansetron 4 MG/2 ML Vial IV (19:48)
[2022-03-03] MEDS: HYDROmorphone 1 MG/ML Syringe 0.5 MG IV (19:48)
[2022-03-03 20:41] LABS: Anion Gap 10 (5-15); BUN 24 mg/dL (7-18); BUN/Creat Ratio 10.6 RATIO (10-20); Calcium,Total 11.2 mg/dL (8.5-10.1); Chloride 108 mmol/L (98-107); Creatinine, Serum 2.26 mg/dL (0.55-1.02); EST Glomerular Filtration Rate 24 mL/min (>60); Est Glom Filt Rate - Afr Amer 29 mL/min (>60); Estimated Creatinine Clearance 25.43 ml/min; Glucose 117 mg/dL (74-106); Potassium 3.5 mmol/L (3.5-5.1); Sodium Level 140 mmol/L (136-145)
[2022-03-03 21:18] LABS: Bacteria 0 SEEN /hpf (None Seen); Mucous, Urine 0 SEEN /hpf (<or=2+)
[2022-03-03 21:40] LABS: Color, Urine Yellow (Yellow); Glucose, Dipstick Normal (Normal); Ketone-Dipstick Negative (Negative); Leukocyte Esterase-Dipstick 25 /ul (Negative); Nitrite-Dipstick Negative (Negative); Occult Blood-Urine 250 /ul (Negative); Protein-Dipstick 30 mg/dl (Negative); Urine Bilirubin Dipstick Negative (Negative); Urine Clarity Sl. Cloudy (Clear); Urine Urobilinogen Normal (Normal)
[2022-03-03 21:52] LABS: Calcium Oxalate Crystals Ur 1+ /hpf (<or=2+)
[2022-03-03 21:53] LABS: Red Blood Cells-Urine 25-50 SEEN /hpf (0-5); Squamous Epithelial Cells - UA 0-5 SEEN /hpf (5-10); White Blood Cells 0-5 SEEN /hpf (0-5)
[2022-03-03 22:14] LABS: Absolute Lymphocyte Count 1.78 X10^3/uL (0.83-4.51); Absolute Neutrophil Count 16.7 X10^3/uL (2.0-7.7); Basophil# 0.08 X10^3/uL; Basophil% 0.4 % (0-1); Hematocrit 39.7 % (37-47); Hemoglobin 13.9 g/dL (12.0-15.0); Lymphocyte # 1.78 X10^3/ul (0.83-4.51); Lymphocyte % 8.6 % (19-41); Mean Corpuscular Hgb 36.6 pg (27.0-32.0); Mean Corpuscular Volume 104.5 fL (81-99); Mean Platelet Vol. 11.3 fl (6.2-12.0); Monocyte# 1.79 X10^3/uL; Monocyte% 8.6 % (0-10); NRBC Flagged by Analyzer 0.1 % (0-5); Neutrophil # 16.69 X10^3/uL (2.7-7.7); Neutrophil % 80.3 % (47-70); POSITIVE COUNT YES; POSITIVE DIFFERENTIAL YES; Platelet Count 290 K/mm3 (150-450); RBC Distribution Width CV 15.9 % (11.6-14.6); RBC Distribution Width SD 60.7 fl (35.1-43.9); White Blood Count 20.8 K/mm3 (4.4-11.0)
--- NOTE | 2022-03-03 22:19 | EX.ED.DYSGE1 ---
HPI History of Present Illness Chief Complaint: Flank Pain Informant: patient Onset/Context/Timing Onset: Days Context: Gradual Onset Timing: Waxes and wanes Current Severity: Severe Maximum Severity: Severe Narrative Narrative: Patient presents secondary to severe right flank pain. Patient was seen in the ER early this morning and noted to have a 4 mm proximal right ureter stone. She was discharged with [place]. Patient states that she has been vomiting shortly after taking her pain medicine at home and her pain is not under control. She call Dr. Robles who encouraged her to come back to the emergency room. [facility] Medical History Abnormal glucose Anemia Anxiety Arthritis Asthma BiPAP (biphasic positive airway pressure) dependence Cardiac murmur Celiac disease Chest pain Cholelithiasis Chronic kidney disease Constipation COPD (chronic obstructive pulmonary disease) Depression Diabetes mellitus Dyspnea on exertion Essential hypertension Gallstones Gastric reflux GERD (gastroesophageal reflux disease) Gout Hepatic steatosis History of cholelithiasis History of chronic back pain Hydronephrosis Hyperlipidemia Hypersomnia Hypertension Hypothyroidism Iron deficiency anemia Microcytic anemia Migraine headache Morbid obesity with BMI of 40.0-44.9, adult Non-smoker Noncompliance DAVY treated with BiPAP Rash Restless leg syndrome Seasonal allergies Shortness of breath on exertion Sleep apnea Ureterolithiasis UTI (urinary tract infection) Vitamin B12 deficiency Vitamin D deficiency Wears glasses Home Medications albuterol sulfate 90 mcg/actuation aerosol inhaler 2 puff PO Q4H PRN PRN Shortness Of Breath 11/21/15 [History Last Taken 01/05/21] citalopram 40 mg tablet 40 mg PO DAILY antidepressant/antianxiety 07/27/19 [History Last Taken 01/05/21] megestrol 40 mg tablet 40 mg PO QHS for heavy menses 09/28/19 [History Last Taken 01/05/21] acetaminophen 650 mg tablet,extended release 1,300 mg PO QHS pain 04/02/20 [History Last Taken 01/05/21] amlodipine 5 mg tablet 5 mg PO DAILY blood pressure 04/02/20 [History Last Taken 01/05/21] ascorbic acid (vitamin C) 500 mg tablet 500 mg PO DAILY supplement 04/02/20 [History Last Taken 01/05/21] budesonide-formoterol HFA 160 mcg-4.5 mcg/actuation aerosol inhaler (Symbicort) 2 puff inhalation BID inhaler 04/02/20 [History Last Taken 01/05/21] cholecalciferol (vitamin D3) 1,250 mcg (50,000 unit) capsule 50,000 unit PO QWEEK SUPPLEMENT 04/02/20 [History Last Taken 01/05/21] cyanocobalamin (vitamin B-12) 1,000 mcg tablet 1,000 mcg PO DAILY Supplement 04/02/20 [History Last Taken 01/05/21] empagliflozin 25 mg tablet (Jardiance) 25 mg PO DAILY diabetes 04/02/20 [History Last Taken 01/05/21] ferrous sulfate 325 mg (65 mg iron) tablet 325 mg PO DAILY supplement 04/02/20 [History Last Taken 01/05/21] hydroxyzine HCl 25 mg tablet 25 mg PO TID PRN Anxiety 04/02/20 [History Last Taken 01/05/21] loratadine 10 mg tablet 10 mg PO DAILY allergies 04/02/20 [History Last Taken 01/05/21] magnesium oxide 500 mg tablet 500 mg PO DAILY supplement 04/02/20 [History Last Taken 01/05/21] meloxicam 15 mg tablet 15 mg PO DAILY arthritis 04/02/20 [History Last Taken 01/05/21] promethazine 25 mg tablet 25 mg PO Q6H PRN Nausea 04/02/20 [History Last Taken 01/05/21] topiramate 100 mg tablet 100 mg PO DAILY migraines 04/02/20 [History Last Taken 01/05/21] ubrogepant 100 mg tablet (Ubrelvy) 100 mg PO ONCE migraines 04/02/20 [History Last Taken 01/05/21] rimegepant 75 mg disintegrating tablet 75 mg PO ONCE migraines 06/19/20 [History Last Taken 01/05/21] fluticasone fur. 100 mcg-umeclid 62.5 mcg-vilant 25 mcg inhalat.powder (Trelegy Ellipta) 1 ea inhalation DAILY copd 08/14/20 [History Last Taken 01/05/21] rosuvastatin 40 mg tablet (Crestor) 40 mg PO QHS cholesterol 08/14/20 [History Last Taken 01/05/21] valsartan 80 mg tablet 160 mg PO DAILY blood pressure 08/14/20 [History Last Taken 01/05/21] gabapentin 100 mg capsule 300 mg PO DAILY neuropathy 09/30/20 [History Last Taken 01/05/21] phenazopyridine 200 mg tablet (Pyridium) 200 mg PO TID PRN PRN Bladder Spasms 7 days #30 tabs 01/06/21 [Rx Last Taken Unknown] ketorolac 10 mg tablet 10 mg PO Q6H PRN pain 3 days 01/10/21 [Rx Last Taken Unknown] febuxostat 40 mg tablet 40 mg PO DAILY 05/20/21 [History Last Taken Unknown] lorazepam 2 mg tablet 2 mg PO DAILY PRN Anxiety 05/20/21 [History Last Taken Unknown] lubiprostone 8 mcg capsule (Amitiza) 8 mcg PO BID #60 caps 06/24/21 [Rx Last Taken Unknown] galcanezumab-gnlm 120 mg/mL subcutaneous pen injector (Emgality Pen) 120 mg subcut QMONTH 08/19/21 [History Last Taken Unknown] dicyclomine 20 mg tablet 20 mg PO BID PRN abdominal cramping #14 tabs 10/17/21 [Rx Last Taken Unknown] atogepant 30 mg tablet (Qulipta) 40 mg PO DAILY 11/17/21 [History Last Taken Unknown] tramadol 50 mg tablet 50 mg PO 11/17/21 [History Last Taken Unknown] levothyroxine 175 mcg tablet 175 mcg PO DAILY #30 tabs 11/19/21 [Rx Last Taken Unknown] omeprazole 40 mg capsule,delayed release 40 mg PO DAILY #30 caps 12/04/21 [Rx Last Taken Unknown] ondansetron 4 mg disintegrating tablet 4 mg PO Q6H PRN nausea and vomiting #10 tabs 12/04/21 [Rx Last Taken Unknown] hydrocodone-acetaminophen 5-325mg 5mg-325mg 1 tab PO Q6H PRN PRN Pain 3 days #10 TABLETS 03/03/22 [Rx Last Taken Unknown] ondansetron 4 mg disintegrating tablet 4 mg PO Q8H PRN nausea and vomiting #10 tabs 03/03/22 [Rx Last Taken Unknown] oxycodone 5 mg tablet 5 mg PO Q6H PRN pain 3 days #10 tabs 03/03/22 [Rx Last Taken Unknown] tizanidine 4 mg tablet 4 mg PO QHS PRN 03/03/22 [History Last Taken Unknown] tramadol 50 mg tablet 50 mg PO BID PRN 03/03/22 [History Last Taken Unknown] Allergy/AdvReac Type Severity Reaction Status Date / Time hydrochlorothiazide AdvReac Intermediate Contributes Verified 03/03/22 19:01 to gout naproxen [From Naprosyn] AdvReac Intermediate Nausea Verified 03/03/22 19:01 aspirin AdvReac Nausea Verified 03/03/22 19:01 Family History Father , Age 72 Hypertension Mother CAD (coronary artery disease) Myocardial infarction, Onset Age: 55 Hypertension Sister CAD (coronary artery disease) Brother Cancer Surgical History History of carpal tunnel release History of left heart catheterization (11/11/20) history of uterine ablation Previous section Social History Smoking Status: Never smoker alcohol intake: never substance use type: does not use caffeine: No ROS ROS ED Constitutional Constitutional ED: Denies chills or fever(s) Eyes Eyes: Denies change in vision or discharge from eye(s) ENT ENT ED: Denies discharge from eye(s), rhinorrhea or sore throat Cardiovascular Cardiovascular: Denies chest pain or palpitations Respiratory/Chest Respiratory/Chest: Denies cough or dyspnea Gastrointestinal Gastrointestinal: Reports abdominal pain, nausea and vomiting; Denies diarrhea Genitourinary Genitourinary ED: Denies difficulty urinating or dysuria Musculoskeletal Musculoskeletal: Reports back pain; Denies extremity pain Integumentary Denies Abrasions or rash Neurologic Neurologic: Denies headache(s) or weakness Psychiatric Psychiatric: Reports anxiety; Denies depression Allergic/Immunologic Allergic/Immunologic ED: Denies lip swelling or urticaria EXAM Physical Exam Const Vital Signs: 03/03/22 19:01 03/03/22 19:03 03/03/22 19:03 Temperature 97.7 F L Temperature Source Temporal Pulse Rate 62 61 Respiratory Rate 15 15 Respiratory Effort Normal Respiratory Pattern Normal Blood Pressure 156/90 H 156/90 H Blood Pressure Mean 112 112 Pulse Ox 99 98 Oxygen Delivery Method Room Air Room Air 03/03/22 23:19 Temperature Temperature Source Pulse Rate 68 Respiratory Rate 19 H Respiratory Effort Respiratory Pattern Blood Pressure 148/98 H Blood Pressure Mean Pulse Ox 97 Oxygen Delivery Method Positive well nourished and well developed General Appearance ED: well developed HEENT Reports normocephalic and head/scalp atraumatic Eyes PERRL and EOMs intact bilaterally Neck supple Chest Wall inspection of chest normal and palpation of chest normal Resp normal respiratory effort and clear to auscultation bilaterally Cardio regular rate and regular rhythm GI normal to inspection, nondistended, normoactive bowel sounds Palpation: soft Back/Spine Back/Spine Narrative: Mild right CVA tenderness. Extremity normal to inspection Neuro oriented x3 and no sensory deficits noted Sensorium / Orientation: alert Motor Exam: strength 5/5 throughout Psych Mood & Affect: anxious Skin no rashes or lesions noted MDM MDM MDM Narrative Medical decision making narrative: Patient's work-up from earlier today is reviewed. CBC was elevated and creatinine was slightly bumped over baseline. CT scan revealed a 4 mm proximal right ureter stone. Patient given IV fluids, Zofran, 0.5 mg of Dilaudid. Lab work obtained along with urinalysis. Repeat imaging was not pursued. Lab Data Attestation: I reviewed the patient's lab results. Labs: Laboratory Results - last 24 hr 03/03/22 03/03/22 03/03/22 20:00 20:59 21:55 WBC 20.8 H RBC 3.80 L Hgb 13.9 Hct 39.7 MCV 104.5 H MCH 36.6 H MCHC 35.0 RDW Std Deviation 60.7 H RDW Coeff of Alfredo 15.9 H Plt Count 290 MPV 11.3 Immature Gran % (Auto) 2.100 H Neut % (Auto) 80.3 H Lymph % (Auto) 8.6 L [place] % (Auto) 8.6 Eos % (Auto) 0.0 Baso % (Auto) 0.4 Absolute Neuts (auto) 16.7 H Absolute Lymphs (auto) 1.78 Nucleated RBC % 0.1 Differential Comment SEE COMMENT Diff Path Review May foll Platelet Estimate ADEQUATE RBC Morphology N CHROM Anisocytosis 1+ Macrocytosis 1+ Sodium 140 Potassium 3.5 Chloride 108 H Carbon Dioxide 22.0 Anion Gap 10 BUN 24 H Creatinine 2.26 H Estim Creat Clear Calc 25.43 Est GFR (MDRD) Af Amer 29 L Est GFR (MDRD) Non-Af 24 L BUN/Creatinine Ratio 10.6 Glucose 117 H Calcium 11.2 H Urine Color Yellow Urine Clarity Sl. Cloudy Urine pH 5.0 Ur Specific [place] 1.020 Urine Protein 30 H Urine Glucose (UA) Normal Urine Ketones Negative Urine Occult Blood 250 H Urine Nitrite Negative Urine Bilirubin Negative Urine Urobilinogen Normal Ur Leukocyte Esterase 25 H Urine RBC 25-50 SEEN Urine WBC 0-5 SEEN Ur Squamous Epith Cells 0-5 SEEN Calcium Oxalate Crystal 1+ Urine Bacteria 0 SEEN Urine Mucus 0 SEEN Treatment and Re-Evaluation Narrative: Patient's white count today is 20.8, increased from 15. 80% neutrophils are noted. Patient does not appear toxic or significantly ill. Chemistry studies reveal BUN 24 and creatinine 2.26. Creatinine this morning was 2.13. She had a creatinine of 1.38 in early January. Urinalysis reveals calcium oxalate crystals. Some blood is noted with no sign of infection. On repeat evaluation patient very comfortable. She is asking for some cookies to eat. She does feel that she can go home with some nausea medication and I will write her for some oxycodone as the [place] was not helping her pain. She was given a full liter IV fluid bolus here to help with renal function. She will follow-up with Dr. Robles. Discharge Plan Triage Chief Complaint: Flank Pain ED Provider: Nannette Stahl Dx/Rx/DC Orders Clinical Impression: Ureterolithiasis Instructions: ED Kidney Stone w/ Colic Prescriptions: New ondansetron 4 mg tablet,disintegrating 4 mg PO Q8H PRN (Reason: nausea and vomiting) Qty: 10 0RF oxycodone 5 mg tablet 5 mg PO Q6H PRN (Reason: pain) 3 Days Qty: 10 0RF No Action topiramate 100 mg tablet 100 mg PO DAILY Label Comments: TAKE 1 TABLET BY MOUTH TWICE DAILY promethazine 25 mg tablet 25 mg PO Q6H PRN (Reason: Nausea) Label Comments: take 1 tablet by oral route every 6 hours as needed Jardiance 25 mg tablet 25 mg PO DAILY magnesium oxide 500 mg tablet 500 mg PO DAILY Ubrelvy 100 mg tablet 100 mg PO ONCE Rx Instructions: as a single dose; may repeat once in >=2 hours after first dose if needed amlodipine 5 mg tablet 5 mg PO DAILY loratadine 10 mg tablet 10 mg PO DAILY cholecalciferol (vitamin D3) 1,250 mcg (50,000 unit) capsule 50,000 unit PO QWEEK Rx Instructions: PT takes on Tuesday meloxicam 15 mg tablet 15 mg PO DAILY cyanocobalamin (vitamin B-12) 1,000 mcg tablet 1,000 mcg PO DAILY Label Comments: TAKE 1 TABLET DAILY acetaminophen 650 mg tablet extended release 1,300 mg PO QHS ascorbic acid (vitamin C) 500 mg tablet 500 mg PO DAILY Label Comments: TAKE 1 TABLET DAILY ferrous sulfate 325 mg (65 mg iron) tablet 325 mg PO DAILY budesonide-formoterol [Symbicort] 160-4.5 mcg/actuation HFA aerosol inhaler 2 puff INHALATION BID rimegepant 75 mg tablet,disintegrating 75 mg PO ONCE gabapentin 100 mg capsule 300 mg PO DAILY Emgality Pen 120 mg/mL pen injector 120 mg subcut QMONTH tramadol 50 mg tablet 50 mg PO Label Comments: TAKE 1 TABLET BY MOUTH 2CTIMES A DAY Qulipta 30 mg tablet 40 mg PO DAILY lorazepam 2 mg tablet 2 mg PO DAILY PRN (Reason: Anxiety) febuxostat 40 mg tablet 40 mg PO DAILY lubiprostone [Amitiza] 8 mcg capsule 8 mcg PO BID Qty: 60 1RF tizanidine 4 mg tablet 4 mg PO QHS PRN tramadol 50 mg tablet 50 mg PO BID PRN albuterol sulfate 1 PUFF inhaler 2 puff PO Q4H PRN PRN (Reason: Shortness Of Breath) Label Comments: megestrol 40 mg tablet 40 mg PO QHS valsartan 80 mg tablet 160 mg PO DAILY rosuvastatin [Crestor] 40 mg tablet 40 mg PO QHS Trelegy Ellipta 100-62.5-25 mcg blister with device 1 ea INHALATION DAILY Label Comments: INHALE 1 PUFF BY MOUTH DAILY with good oral care phenazopyridine [Pyridium] 200 MG tablet 200 mg PO TID PRN PRN (Reason: Bladder Spasms) 7 Days Qty: 30 0RF ketorolac 10 mg tablet 10 mg PO Q6H PRN (Reason: pain) 3 Days 0RF dicyclomine 20 mg tablet 20 mg PO BID PRN (Reason: abdominal cramping) Qty: 14 0RF omeprazole 40 mg capsule,delayed release(DR/EC) 40 mg PO DAILY Qty: 30 0RF ondansetron 4 mg tablet,disintegrating 4 mg PO Q6H PRN (Reason: nausea and vomiting) Qty: 10 0RF hydrocodone-acetaminophen [hydrocodone-acetaminophen] 5-325 mg tablet 1 tab PO Q6H PRN PRN (Reason: Pain) 3 Days Qty: 10 0RF citalopram 40 mg tablet 40 mg PO DAILY hydroxyzine HCl 25 mg tablet 25 mg PO TID PRN (Reason: Anxiety) levothyroxine 175 mcg tablet 175 mcg PO DAILY Qty: 30 6RF Primary Care Provider: Casey Lutz NP Referrals: Britt Robles MD [Med Staff - Active Staff] - 3-5 Days Casey Lutz NP, [employer] MACHINE OPERATOR-C [Primary Care Provider] - Disposition Disposition: Home, Self Care Discharge Date/Time: 03/03/22 23:49
[2022-03-03 22:22] LABS: Differential Indicated SCAN CRITERIA MET
[2022-03-03] MEDS: 0.9% Normal Saline 1,000 ML 999 ML IV (22:31)
[2022-03-03 22:50] LABS: Anisocytosis 1+; Macrocytosis 1+; Platelet Estimate ADEQUATE (ADEQ); Red Cell Morphology N CHROM NORMAL (NORM C&C)
[2022-03-03 23:19] VITALS: BP 148/98; PULSE 68; RESP 19; O2SAT 97
--- NOTE | 2022-03-03 23:47 | ED.RN ---
Addendum entered by Re Ryder 03/03/22 23:48: pt not wanting to wait in ER any longer. Pt angry with long wait times. Original Note: pt IV blown while receiving IV bolus. No swelling or redness noted with IV site. Pt received 200cc of IV bolus before d/c.
[2022-03-05 09:50] LABS: Pathologist Review Reviewed
== END 2022-03-03 23:49 | disposition home or self-care (01) ==
PROVIDERS: Emergency Provider Emergency Medicine; PCP Nurse Practitioner Family; Visit Provider Emergency Medicine
DX: N13.2 Hydronephrosis with renal and ureteral calculous obstruction (principal); J44.9 Chronic obstructive pulmonary disease, unspecified; E11.22 Type 2 diabetes mellitus with diabetic chronic kidney disease; E66.01 Morbid (severe) obesity due to excess calories; N18.9 Chronic kidney disease, unspecified; E78.5 Hyperlipidemia, unspecified; I12.9 Hypertensive chronic kidney disease with stage 1 through stage 4 chronic kidney disease, or unspecified chronic kidney disease; M54.50 Low back pain, unspecified; K80.20 Calculus of gallbladder without cholecystitis without obstruction; R10.9 Unspecified abdominal pain; R11.2 Nausea with vomiting, unspecified; R35.0 Frequency of micturition
CPT/HCPCS: 74176; 80048; 80053; 81001; 83690; 85025; 96361; 96374; 96375; 99282; 99285; A4216; J2405

== ENCOUNTER 2022-03-30 09:26 | Day surgery (SDC) | payer MEDICARE, MEDICAID, SELFPAY ==
[2022-03-30 10:40] VITALS: BP 150/95; PULSE 60; RESP 18; TEMP 36.1; O2SAT 99; BMI 47.2
[2022-03-30] MEDS: Lactated Ringers 1,000 ML 15 ML IV (10:45)
--- NOTE | 2022-03-30 11:02 | DCINST_ITS ---
Discharge Instructions Diet Discharge Diet: No restrictions Activity Discharge Activity: Return to Normal Activity Dressing / Incision Call your doctor if you observe: Fever of 101 or Higher, Inability to urinate and Inability to have a bowel movement Follow Up Care Please Follow Up With: Britt Robles MD When: as scheduled for urine culture and surgery next week. please complete antibiotics given yesterday Test Results: Test results from this visit will be discussed in further detail at your follow- up appointment, if applicable. Discharge Plan Admission Attending Provider: Britt Robles Primary Care Provider: Casey Lutz BARREL AND RECEIVER ALIGNER Discharge Orders/Prescriptions Prescriptions: New phenazopyridine [Pyridium] 200 mg tablet 200 mg PO TID PRN PRN (Reason: Bladder Spasms) 7 Days Qty: 30 1RF Continued Jardiance 25 mg tablet 25 mg PO DAILY Ubrelvy 100 mg tablet 100 mg PO ONCE Rx Instructions: as a single dose; may repeat once in >=2 hours after first dose if needed amlodipine 5 mg tablet 5 mg PO DAILY loratadine 10 mg tablet 10 mg PO DAILY cholecalciferol (vitamin D3) 1,250 mcg (50,000 unit) capsule 50,000 unit PO QWEEK Rx Instructions: PT takes on Tuesday meloxicam 15 mg tablet 15 mg PO DAILY cyanocobalamin (vitamin B-12) 1,000 mcg tablet 1,000 mcg PO DAILY Label Comments: TAKE 1 TABLET DAILY acetaminophen 650 mg tablet extended release 1,300 mg PO QHS ascorbic acid (vitamin C) 500 mg tablet 500 mg PO DAILY Label Comments: TAKE 1 TABLET DAILY ferrous sulfate 325 mg (65 mg iron) tablet 325 mg PO DAILY budesonide-formoterol [Symbicort] 160-4.5 mcg/actuation HFA aerosol inhaler 2 puff INHALATION BID rimegepant 75 mg tablet,disintegrating 75 mg PO ONCE gabapentin 100 mg capsule 100 mg PO TID Emgality Pen 120 mg/mL pen injector 120 mg subcut QMONTH Qulipta 30 mg tablet 40 mg PO DAILY lorazepam 2 mg tablet 2 mg PO DAILY PRN (Reason: Anxiety) tizanidine 4 mg tablet 4 mg PO QHS PRN (Reason: muscle relaxer) tramadol 50 mg tablet 50 mg PO BID PRN (Reason: Pain) albuterol sulfate 1 PUFF inhaler 2 puff PO Q4H PRN PRN (Reason: Shortness Of Breath) Label Comments: megestrol 40 mg tablet 40 mg PO QHS valsartan 80 mg tablet 160 mg PO DAILY rosuvastatin [Crestor] 40 mg tablet 40 mg PO QHS Trelegy Ellipta 100-62.5-25 mcg blister with device 1 ea INHALATION DAILY Label Comments: INHALE 1 PUFF BY MOUTH DAILY with good oral care omeprazole 40 mg capsule,delayed release(DR/EC) 40 mg PO DAILY Qty: 30 0RF ondansetron 4 mg tablet,disintegrating 4 mg PO Q6H PRN (Reason: nausea and vomiting) Qty: 10 0RF ondansetron 4 mg tablet,disintegrating 4 mg PO Q8H PRN (Reason: nausea and vomiting) Qty: 10 0RF oxycodone 5 mg tablet 5 mg PO Q6H PRN (Reason: pain) 3 Days Qty: 10 0RF citalopram 40 mg tablet 40 mg PO DAILY hydroxyzine HCl 25 mg tablet 25 mg PO TID PRN (Reason: Anxiety) levothyroxine 175 mcg tablet 175 mcg PO DAILY Qty: 30 6RF Referrals / Follow Up: Casey Lutz BARREL AND RECEIVER ALIGNER, BARREL AND RECEIVER ALIGNER-C [Primary Care Provider] - Disposition Disposition (needs filled in before D/C Order can be placed): Home, Self Care
[2022-03-30 11:05] LABS: Bedside Glucose 105 mg/dL (74-106)
--- NOTE | 2022-03-30 11:05 | PCM.OPRPT ---
Report of Operation Date of Procedure: 03/30/22 Pre-Operative Diagnosis: Right ureteral calculus, acute urinary tract infection Post-Operative Diagnosis: Same Surgery/Procedure Performed:: Cystoscopy with right ureteral stent insertion Surgeon: Britt Robles Type of Anesthesia: MAC Description of Procedure: The patient is a 51-year-old female with a right ureteral calculus for the last 3 to 4 weeks who presents for a ureteral stent insertion secondary to acute urinary tract infection. Informed consent has been obtained. The patient was taken to the operating room and placed on the operating room table. Anesthesia monitored the head, neck, airway, IV access and vital signs throughout the case. Once anesthesia was appropriate administered, the patient was placed into dorsolithotomy position was prepped and draped in usual sterile fashion. The cystoscope was inserted through the urethra under direct visualization into the urinary bladder. The bladder mucosa appeared to be without evidence of mass, foreign body or abnormality. The right ureteral orifice was identified and gently intubated with a 0.035 Glidewire. A 4.5 Italian by 24 cm JJ stent was then inserted over the wire with good curling in the renal pelvis as well as the urinary bladder. The patient's bladder was then drained and the cystoscope was removed. The patient was awakened and taken to the recovery room in good condition. There were no complications during this procedure. Grafts/Implants Used: 4.5 x 24 cm JJ stent Complications None Admit VTE Documentation VTE Present on Admission: Yes VTE Mechan Device Prophylaxis: SCD's Reason prophylaxis not ordered:: Treatment Not Indicated
[2022-03-30] MEDS: Cefazolin 2 GM in 0.9% Normal Saline 100 ML IV (11:30)
[2022-03-30 12:00] VITALS: BP 126/101; BP 150/95; PULSE 89; RESP 18; TEMP 36.7; O2SAT 98
[2022-03-30 12:05] VITALS: BP 150/88; BP 150/95; PULSE 74; PULSE 80; RESP 18; O2SAT 98
[2022-03-30 12:12] VITALS: BP 150/95; BP 156/98; PULSE 73; RESP 18; TEMP 36; O2SAT 100
[2022-03-30] MEDS: Ketorolac 30 MG/ML Syringe IV (12:40)
[2022-03-30 13:05] VITALS: BP 150/95
[2022-03-30 14:19] VITALS: BP 141/73; BP 150/95; PULSE 62; RESP 18; O2SAT 98
== END 2022-03-30 14:41 | disposition home or self-care (01) ==
LOC: SDC 09:27 → AC 09:28
PROVIDERS: PCP Nurse Practitioner Family; Visit Provider Urology
PROC: (CPT 52332; principal; 2022-03-30 10:45)
DX: N20.1 Calculus of ureter (principal); J44.9 Chronic obstructive pulmonary disease, unspecified; E11.22 Type 2 diabetes mellitus with diabetic chronic kidney disease; I25.10 Atherosclerotic heart disease of native coronary artery without angina pectoris; I12.9 Hypertensive chronic kidney disease with stage 1 through stage 4 chronic kidney disease, or unspecified chronic kidney disease; E78.5 Hyperlipidemia, unspecified; E03.9 Hypothyroidism, unspecified; N18.9 Chronic kidney disease, unspecified; Z79.84 Long term (current) use of oral hypoglycemic drugs; Z79.899 Other long term (current) drug therapy; Z87.442 Personal history of urinary calculi
CPT/HCPCS: 52332; 76000; 82962; J7120; J2405

== ENCOUNTER 2022-04-09 06:13 | Day surgery (SDC) | payer MEDICARE, MEDICAID, SELFPAY ==
[2022-04-09] VITALS (7 sets, daily range): BP systolic 103–162; BP diastolic 71–116; PULSE 68–87; RESP 16–22; TEMP 36–36.9; O2SAT 94–100; BMI 48.0
[2022-04-09] MEDS: Lactated Ringers 1,000 ML 15 ML IV (06:20)
--- NOTE | 2022-04-09 07:28 | EX.PCM.DISCH ---
Discharge Instructions Diet Discharge Diet: No restrictions Activity Discharge Activity: Return to Normal Activity Dressing / Incision Call your doctor if you observe: Fever of 101 or Higher, Inability to urinate and Inability to have a bowel movement Follow Up Care Please Follow Up With: Britt Robles MD When: call office for appt Test Results: Test results from this visit will be discussed in further detail at your follow-up appointment, if applicable. Discharge Plan Admission Attending Provider: Britt Robles Primary Care Provider: Casey Lutz NUT PROCESSING SUPERVISOR Discharge Orders/Prescriptions Prescriptions: Continued Jardiance 25 mg tablet 25 mg PO DAILY Ubrelvy 100 mg tablet 100 mg PO ONCE Rx Instructions: as a single dose; may repeat once in >=2 hours after first dose if needed amlodipine 5 mg tablet 5 mg PO DAILY loratadine 10 mg tablet 10 mg PO DAILY cholecalciferol (vitamin D3) 1,250 mcg (50,000 unit) capsule 50,000 unit PO QWEEK Rx Instructions: PT takes on Tuesday meloxicam 15 mg tablet 15 mg PO DAILY cyanocobalamin (vitamin B-12) 1,000 mcg tablet 1,000 mcg PO DAILY Label Comments: TAKE 1 TABLET DAILY acetaminophen 650 mg tablet extended release 1,300 mg PO QHS ascorbic acid (vitamin C) 500 mg tablet 500 mg PO DAILY Label Comments: TAKE 1 TABLET DAILY ferrous sulfate 325 mg (65 mg iron) tablet 325 mg PO DAILY budesonide-formoterol [Symbicort] 160-4.5 mcg/actuation HFA aerosol inhaler 2 puff INHALATION BID rimegepant 75 mg tablet,disintegrating 75 mg PO ONCE gabapentin 100 mg capsule 100 mg PO TID Emgality Pen 120 mg/mL pen injector 120 mg subcut QMONTH Qulipta 30 mg tablet 40 mg PO DAILY lorazepam 2 mg tablet 2 mg PO DAILY PRN (Reason: Anxiety) tizanidine 4 mg tablet 4 mg PO QHS PRN (Reason: muscle relaxer) tramadol 50 mg tablet 50 mg PO BID PRN (Reason: Pain) albuterol sulfate 1 PUFF inhaler 2 puff PO Q4H PRN PRN (Reason: Shortness Of Breath) Label Comments: megestrol 40 mg tablet 40 mg PO QHS valsartan 80 mg tablet 160 mg PO DAILY rosuvastatin [Crestor] 40 mg tablet 40 mg PO QHS Trelegy Ellipta 100-62.5-25 mcg blister with device 1 ea INHALATION DAILY Label Comments: INHALE 1 PUFF BY MOUTH DAILY with good oral care omeprazole 40 mg capsule,delayed release(DR/EC) 40 mg PO DAILY Qty: 30 0RF ondansetron 4 mg tablet,disintegrating 4 mg PO Q8H PRN (Reason: nausea and vomiting) Qty: 10 0RF phenazopyridine [Pyridium] 200 mg tablet 200 mg PO TID PRN PRN (Reason: Bladder Spasms) 7 Days Qty: 30 1RF citalopram 40 mg tablet 40 mg PO DAILY hydroxyzine HCl 25 mg tablet 25 mg PO TID PRN (Reason: Anxiety) levothyroxine 175 mcg tablet 175 mcg PO DAILY Qty: 30 6RF Referrals / Follow Up: Casey Lutz NUT PROCESSING SUPERVISOR, NUT PROCESSING SUPERVISOR-C [Primary Care Provider] - Disposition Disposition (needs filled in before D/C Order can be placed): Home, Self Care
[2022-04-09] MEDS: Cefazolin 2 GM in 0.9% Normal Saline 100 ML IV (07:29)
--- NOTE | 2022-04-09 07:29 | PCM.OPRPT ---
Report of Operation Date of Procedure: 04/09/22 Pre-Operative Diagnosis: right ureteral calculus Post-Operative Diagnosis: same, passed Surgery/Procedure Performed:: cystoscopy, right ureteral stent removal, right ureteroscopy Surgeon: Britt Robles Type of Anesthesia: General Specimen's removed: None Description of Procedure: The patient is a 51-year-old female with a right ureteral calculus here for surgical intervention. Informed consent was obtained. The patient was taken to the operating room and placed on the operating room table. Anesthesia monitored the head, neck, airway, IV access and vital signs throughout the case. Once anesthesia was appropriately administered, the patient was placed into dorsolithotomy position was prepped and draped in usual sterile fashion. The cystoscope was inserted through the urethra under direct visualization into the urinary bladder. The right ureteral stent was immediately observed. 2 separate 0.035 Glidewire's were passed alongside the stent into the renal pelvis as seen on fluoroscopy and the stent was removed leaving the wires in place. The flexible ureteroscope was advanced over one of the wires all the way to the renal pelvis without difficulty. There were a few calcifications identified behind the papilla, nothing within the lumen of the collecting system. The entire length of the ureter was directly visualized and no evidence of stone was seen. At this time the ureteroscope was removed, the wire was removed and the case was terminated. The patient was awakened and taken to the recovery room. Grafts/Implants Used: none Complications none Admit VTE Documentation VTE Present on Admission: Yes VTE Mechan Device Prophylaxis: SCD's VTE Pharm Prophylaxis ordered?: No Reason prophylaxis not ordered:: Treatment Not Indicated
[2022-04-09 07:55] LABS: Bedside Glucose 110 mg/dL (74-106)
--- NOTE | 2022-04-09 08:57 | SUR.PHASEI ---
when patient was received into Phase 1, she immediately told this RN she was anxious and needed something for anxiety. this RN was able to settle the patient and give her IV medication to help. she also stated she was cold, and felt like she was choking. vital signs stable, patient suctioned with minimal clear secretions. patient able to cough strongly, lungs clear on auscultation. patient given warm blanket. patient fell back asleep. no s/s distress. when patient awakens she complains of headache and burning in groin. reassured patient that the burning was probably related to surgery. encouraged patient to try oral pain medication to help alleviate that discomfort. patient fell back asleep.
[2022-04-09 10:45] LABS: Bedside Glucose 111 mg/dL (74-106)
== END 2022-04-09 11:33 | disposition home or self-care (01) ==
LOC: SDC 06:15 → AC 06:16
PROVIDERS: PCP Nurse Practitioner Family; Referring Provider Urology; Visit Provider Urology
PROC: 0TJ98ZZ Inspection of Ureter, Via Natural or Artificial Opening Endoscopic (ICD-10-PCS; CPT 52352; principal; 2022-04-09 07:20)
DX: N20.1 Calculus of ureter (principal); J44.9 Chronic obstructive pulmonary disease, unspecified; E11.22 Type 2 diabetes mellitus with diabetic chronic kidney disease; I12.9 Hypertensive chronic kidney disease with stage 1 through stage 4 chronic kidney disease, or unspecified chronic kidney disease; E78.5 Hyperlipidemia, unspecified; E03.9 Hypothyroidism, unspecified; N18.9 Chronic kidney disease, unspecified; F32.A Depression, unspecified; F41.9 Anxiety disorder, unspecified; K21.9 Gastro-esophageal reflux disease without esophagitis; I25.10 Atherosclerotic heart disease of native coronary artery without angina pectoris; Z79.84 Long term (current) use of oral hypoglycemic drugs; Z79.899 Other long term (current) drug therapy
CPT/HCPCS: 52310; 00910; 76000; 82962; J7120; J2405

== ENCOUNTER → 2022-04-22 | Outpatient (CLI) | payer MEDICARE, MEDICAID, SELFPAY ==
--- NOTE | 2022-04-22 13:46 | RAD_ITS ---
INDICATION: Shortness of breath, minimal exertion EXAMINATION/TECHNIQUE: X-RAY - XR Chest 2 Views COMPARISON: 12/04/2021. FINDINGS: The lungs are clear. The heart is borderline enlarged. Normal thoracic aorta. No pleural effusion or pneumothorax. No acute osseous abnormalities. RAD/Chest PA and Lateral IMPRESSION: No acute radiographic abnormalities. Electronically Signed: Bernardo Brooks MD at 18:06 EST ,
[2022-04-22 15:15] LABS: Absolute Lymphocyte Count 1.65 X10^3/uL (0.83-4.51); Absolute Neutrophil Count 4.1 X10^3/uL (2.0-7.7); Basophil# 0.06 X10^3/uL; Basophil% 0.9 % (0-1); Eosinophil# 0.14 X10^3/uL; Eosinophils% 2.2 % (0-5); Hematocrit 36.9 % (37-47); Hemoglobin 12.2 g/dL (12.0-15.0); Lymphocyte # 1.65 X10^3/ul (0.83-4.51); Lymphocyte % 25.7 % (19-41); Mean Corp Hgb Conc 33.1 g/dL (32-36); Mean Platelet Vol. 10.5 fl (6.2-12.0); Monocyte# 0.44 X10^3/uL; Monocyte% 6.9 % (0-10); NRBC Flagged by Analyzer 0 % (0-5); POSITIVE MORPHOLOGY YES; Platelet Count 313 K/mm3 (150-450); RBC Distribution Width CV 18.4 % (11.6-14.6); RBC Distribution Width SD 79.6 fl (35.1-43.9); Red Blood Count 3.21 M/mm3 (4.2-5.4); White Blood Count 6.4 K/mm3 (4.4-11.0)
[2022-04-22 15:38] LABS: BNP,B-Type NATRIURETIC PEPTIDE 12.1 pg/mL (0-100)
[2022-04-22 15:51] LABS: Differential Indicated SCAN CRITERIA MET
[2022-04-22 16:22] LABS: Differential Comment SCANNED
[2022-04-22 16:23] LABS: Anisocytosis 1+
[2022-04-22 16:38] LABS: AST(SGOT) 34 U/L (15-37); Alanine Aminotransfer ALT/SGPT 14 U/L (13-56); Albumin, Serum 3.9 g/dL (3.2-5.0); Alkaline Phosphatase 93 U/L (45-117); Anion Gap 9 (5-15); BUN 9 mg/dL (7-18); Calcium,Total 9.6 mg/dL (8.5-10.1); Chloride 104 mmol/L (98-107); EST Glomerular Filtration Rate 39 mL/min (>60); Est Glom Filt Rate - Afr Amer 47 mL/min (>60); Globulin 3.9 g/dL (2.2-4.2); Glucose 109 mg/dL (74-106); Potassium 3.3 mmol/L (3.5-5.1); Protein, Total 7.8 g/dL (6.4-8.2); Sodium Level 138 mmol/L (136-145)
== END | disposition home or self-care (01) ==
LOC: RAD 13:45
PROVIDERS: PCP Nurse Practitioner Family; Referring Provider Nurse Practitioner Family; Visit Provider Nurse Practitioner Family
DX: R06.02 Shortness of breath (principal); I51.89 Other ill-defined heart diseases; I25.10 Atherosclerotic heart disease of native coronary artery without angina pectoris; N18.9 Chronic kidney disease, unspecified; E03.9 Hypothyroidism, unspecified; R53.83 Other fatigue
CPT/HCPCS: 36415; 71046; 80053; 83880; 84443; 85025

== ENCOUNTER 2022-05-04 15:27 | Observation (INO) | payer MEDICARE, MEDICAID, SELFPAY ==
[2022-05-04] VITALS (10 sets, daily range): BP systolic 149–190; BP diastolic 69–112; PULSE 66–100; RESP 16–18; TEMP 36.2–37.1; O2SAT 98–100; BMI 45.4; BMI 45.7
--- NOTE | 2022-05-04 15:37 | CT_ITS ---
STUDY: CT ABDOMEN AND PELVIS WITHOUT CONTRAST REASON FOR EXAM: Female, 51 years old. abscess IN [place] RADIATION DOSAGE (If Supplied By Facility): CTDIvol = ( 33.18 ) mGy, DLP = ( 1749.32 ) mGycm TECHNIQUE: Transaxial images were obtained from the dome of the diaphragm to the symphysis pubis without oral contrast, and without intravenous contrast. Sagittal and coronal images were reconstructed. Individualized dose optimization techniques were used for this CT. COMPARISON: None. FINDINGS: The visualized lung bases are unremarkable. The visualized portions of the heart are within normal limits. Normal liver. Normal gallbladder and extrahepatic biliary system. Borderline splenomegaly. Normal pancreas. Normal bilateral adrenal glands. Multiple tiny bilateral nonobstructing renal calculi Bilateral parapelvic renal cysts. Normal visualized stomach. Normal small intestine. Nonspecific diffuse fecal retention within the colon no evidence for acute appendicitis. Atherosclerotic changes of the aorta without evidence for aneurysm. Normal inferior vena cava. Normal retroperitoneum. Normal urinary bladder. There are phlegmonous changes in the subcutaneous fat of the umbilicus with adjacent subcutaneous edema or cellulitis but no well-defined abscess collection.. Lumbar spine demonstrates mild degenerative change CT/Abdomen/Pelvis without Cont IMPRESSION: Nonspecific phlegmonous changes within the umbilical fat without definitive evidence for well-defined abscess Bilateral nephrolithiasis without evidence of hydronephrosis] at this time. . Multiple bilateral parapelvic renal cysts Electronically Signed: Isaac Aviles MD at 17:15 EST ,
--- NOTE | 2022-05-04 15:38 | EX.ED.DYSGE1 ---
HPI History of Present Illness Chief Complaint: Abd Pain Narrative Narrative: Patient presents with abdominal pain since last night, it is sensitive to the touch. It is periumbilical. It is mostly in the abdominal wall. She does have some nausea with this. She has no back pain or flank pain. She is a diabetic. She has not noted any fevers or chills no diarrhea or constipation. [facility] Medical History Abnormal glucose Anemia Anxiety Arthritis Asthma BiPAP (biphasic positive airway pressure) dependence Cardiac murmur Cardiology follow-up encounter Celiac disease Chest pain Cholelithiasis Chronic kidney disease Constipation COPD (chronic obstructive pulmonary disease) Depression Diabetes Diabetes mellitus Dietary restriction Difficulty swallowing Dyspnea on exertion Easy bruising Essential hypertension Gastric reflux GERD (gastroesophageal reflux disease) Gout History of chronic back pain History of echocardiogram History of edema History of pain when walking History of stress test Hydronephrosis Hyperlipidemia Hypersomnia Hypertension Hypothyroidism Injury of head and neck Iron deficiency anemia Leg cramps Microcytic anemia Migraine headache Morbid obesity with BMI of 40.0-44.9, adult Non-smoker Noncompliance DAVY treated with BiPAP Post-menopausal Restless leg syndrome Seasonal allergies Shortness of breath on exertion Syncope Thyroid disease Ureterolithiasis UTI (urinary tract infection) Vitamin B12 deficiency Vitamin D deficiency Wears glasses Home Medications albuterol sulfate 90 mcg/actuation aerosol inhaler 2 puff PO Q4H PRN PRN Shortness Of Breath 11/21/15 [History Last Taken 01/05/21] citalopram 40 mg tablet 40 mg PO DAILY antidepressant/antianxiety 07/27/19 [History Last Taken 01/05/21] megestrol 40 mg tablet 40 mg PO QHS for heavy menses 09/28/19 [History Last Taken 01/05/21] acetaminophen 650 mg tablet,extended release 1,300 mg PO QHS pain 04/02/20 [History Last Taken 01/05/21] amlodipine 5 mg tablet 5 mg PO DAILY blood pressure 04/02/20 [History Last Taken 04/09/22] ascorbic acid (vitamin C) 500 mg tablet 500 mg PO DAILY supplement 04/02/20 [History Last Taken 01/05/21] budesonide-formoterol HFA 160 mcg-4.5 mcg/actuation aerosol inhaler (Symbicort) 2 puff inhalation BID inhaler 04/02/20 [History Last Taken 01/05/21] cholecalciferol (vitamin D3) 1,250 mcg (50,000 unit) capsule 50,000 unit PO QWEEK SUPPLEMENT 04/02/20 [History Last Taken 01/05/21] cyanocobalamin (vitamin B-12) 1,000 mcg tablet 1,000 mcg PO DAILY Supplement 04/02/20 [History Last Taken 01/05/21] empagliflozin 25 mg tablet (Jardiance) 25 mg PO DAILY diabetes 04/02/20 [History Last Taken 01/05/21] ferrous sulfate 325 mg (65 mg iron) tablet 325 mg PO DAILY supplement 04/02/20 [History Last Taken 01/05/21] hydroxyzine HCl 25 mg tablet 25 mg PO TID PRN Anxiety 04/02/20 [History Last Taken 01/05/21] loratadine 10 mg tablet 10 mg PO DAILY allergies 04/02/20 [History Last Taken 01/05/21] meloxicam 15 mg tablet 15 mg PO DAILY arthritis 04/02/20 [History Last Taken 01/05/21] ubrogepant 100 mg tablet (Ubrelvy) 100 mg PO ONCE migraines 04/02/20 [History Last Taken 01/05/21] rimegepant 75 mg disintegrating tablet (Nurtec ODT) 75 mg PO ONCE migraines 06/19/20 [History Last Taken 01/05/21] fluticasone fur. 100 mcg-umeclid 62.5 mcg-vilant 25 mcg inhalat.powder (Trelegy Ellipta) 1 ea inhalation DAILY copd 08/14/20 [History Last Taken 01/05/21] rosuvastatin 40 mg tablet (Crestor) 40 mg PO QHS cholesterol 08/14/20 [History Last Taken 01/05/21] valsartan 80 mg tablet 160 mg PO DAILY blood pressure 08/14/20 [History Last Taken 04/09/22] gabapentin 100 mg capsule 100 mg PO TID neuropathy 09/30/20 [History Last Taken 04/09/22] lorazepam 2 mg tablet 2 mg PO DAILY PRN Anxiety 05/20/21 [History Last Taken Unknown] galcanezumab-gnlm 120 mg/mL subcutaneous pen injector (Emgality Pen) 120 mg subcut QMONTH 08/19/21 [History Last Taken Unknown] atogepant 30 mg tablet (Qulipta) 40 mg PO DAILY 11/17/21 [History Last Taken Unknown] levothyroxine 175 mcg tablet 175 mcg PO DAILY #30 tabs 11/19/21 [Rx Last Taken 04/09/22] omeprazole 40 mg capsule,delayed release 40 mg PO DAILY #30 caps 12/04/21 [Rx Last Taken 04/09/22] ondansetron 4 mg disintegrating tablet 4 mg PO Q8H PRN nausea and vomiting #10 tabs 03/03/22 [Rx Last Taken Unknown] tizanidine 4 mg tablet 4 mg PO QHS PRN muscle relaxer 03/03/22 [History Last Taken Unknown] tramadol 50 mg tablet 50 mg PO BID PRN Pain 03/03/22 [History Last Taken Unknown] phenazopyridine 200 mg tablet (Pyridium) 200 mg PO TID PRN PRN Bladder Spasms 7 days #30 tabs 03/30/22 [Rx Last Taken Unknown] potassium chloride 10 mEq capsule,extended release 10 meq PO DAILY pt cannot swallow KCL pills, needs capsules #30 caps 04/22/22 [Rx Last Taken Unknown] Allergy/AdvReac Type Severity Reaction Status Date / Time hydrochlorothiazide AdvReac Intermediate Contributes Verified 05/04/22 15:29 to gout naproxen [From Naprosyn] AdvReac Intermediate Nausea Verified 05/04/22 15:29 aspirin AdvReac Nausea Verified 05/04/22 15:29 Family History Father , Age 72 Hypertension Mother CAD (coronary artery disease) Myocardial infarction, Onset Age: 55 Hypertension Sister CAD (coronary artery disease) Brother Cancer Surgical History History of History of cardiac catheterization History of carpal tunnel surgery of left wrist History of carpal tunnel surgery of right wrist History of left heart catheterization (11/11/20) history of uterine ablation Hx of cystoscopy Social History Smoking Status: Never smoker alcohol intake: never substance use type: does not use caffeine: No ROS ROS ED ROS Narrative Past medical history: Reviewed in [place] [address] Medications: Reviewed Review of systems: All systems negative except as indicated General: No fever Neck: No neck pain Cardiovascular: No chest pain Respiratory: No shortness of breath or cough Gastrointestinal: Abdominal pain as in HPI Genitourinary: No dysuria Musculoskeletal: Denies myalgias no difficulty with ambulation Skin: No rash Neurological: No memory loss, confusion or any focal weakness EXAM Physical Exam Narrative Exam Narrative: Physical exam General: Patient is relatively comfortable in the bed. Head: Normocephalic, Atraumatic Eyes: Conjunctiva not pale ENT: Moist mucous membranes. No signs of dehydration Neck: Supple, Nontender, No lymphadenopathy Cardiovascular: Regular rate, Regular rhythm Respiratory: No distress, CTA bilaterally Abdomen: Soft, there is an abscess in the umbilical region as well as surrounding cellulitis. The abscess is about 3 cm. No crepitus. Back: Nontender, Normal Inspection. Negative for: CVA tenderness Extremities: Nontender, No edema Skin: About an area of 10 cm of cellulitis as above otherwise normal color Const Vital Signs: 05/04/22 15:28 05/04/22 15:28 05/04/22 15:29 Temperature 97.2 F L 97.2 F L 97.2 F L Temperature Source Temporal Temporal Temporal Pulse Rate 95 82 86 Respiratory Rate 18 16 16 Blood Pressure 190/112 H 170/93 H 170/93 H Blood Pressure Mean 138 118 118 Pulse Ox 99 98 99 Oxygen Delivery Method Room Air Room Air Room Air 05/04/22 16:29 05/04/22 16:59 05/04/22 17:03 Temperature 97.3 F L 97.4 F L 97.4 F L Temperature Source Temporal Temporal Temporal Pulse Rate 66 66 77 Respiratory Rate 16 18 18 Blood Pressure 149/69 H 150/78 H 150/78 H Blood Pressure Mean 95 102 102 Pulse Ox 100 98 98 Oxygen Delivery Method Room Air Room Air Room Air MDM MDM MDM Narrative Medical decision making narrative: A. Problems addressed Patient has an abdominal wall induration but no abscess is seen on the CT, she also has cellulitis. My initial worry was for an intra-abdominal abscess that extended to the abdominal wall region. This is not found. Patient will be admitted, she has diabetes, and significant cellulitis IV antibiotics will be started. B. Amount and/or complexity of the data (2 out of 3) 1. CBC CMP were reviewed by me. I reviewed outpatient chart about her urology follow-ups as well as inpatient from Dr. Fontana from 2020. 3. I discussed with hospitalist for admission C. Risk of complications and/or morbidity Differential diagnosis: See above Lab Data Labs: Laboratory Results - last 24 hr 05/04/22 05/04/22 15:55 15:55 WBC 11.2 H RBC 3.35 L Hgb 13.0 Hct 38.3 MCV 114.3 H MCH 38.8 H MCHC 33.9 RDW Std Deviation 73.6 H RDW Coeff of Alfredo 17.2 H Plt Count 312 MPV 10.2 Immature Gran % (Auto) 1.000 H Neut % (Auto) 73.5 H Lymph % (Auto) 17.7 L [place] % (Auto) 6.9 Eos % (Auto) 0.4 Baso % (Auto) 0.5 Absolute Neuts (auto) 8.3 H Absolute Lymphs (auto) 1.99 Nucleated RBC % 0 Differential Comment SCANNED Anisocytosis RARE Sodium 139 Potassium 3.5 Chloride 103 Carbon Dioxide 26.0 Anion Gap 10 BUN 16 Creatinine 1.26 H Estim Creat Clear Calc 45.61 Est GFR (MDRD) Af Amer 57 L Est GFR (MDRD) Non-Af 47 L BUN/Creatinine Ratio 12.7 Glucose 112 H Calcium 10.2 H Total Bilirubin 1.20 H AST 33 ALT 28 Alkaline Phosphatase 191 H Total Protein 9.1 H Albumin 4.5 Globulin 4.6 H Albumin/Globulin Ratio 1.0 Radiography Diagnostic Testing: Clinical Impression(s) from Imaging Studies Abdomen/Pelvis CT 05/04/22 15:37 IMPRESSION: Nonspecific phlegmonous changes within the umbilical fat without definitive evidence for well-defined abscess Bilateral nephrolithiasis without evidence of hydronephrosis] at this time. . Multiple bilateral parapelvic renal cysts Electronically Signed: Isaac Aviles MD at 17:15 EST , Discharge Plan Triage Chief Complaint: Abd Pain ED Provider: Yair Jenkins Dx/Rx/DC Orders Clinical Impression: Cellulitis, Diabetes, Abdominal pain, Nausea & vomiting Prescriptions: No Action Jardiance 25 mg tablet 25 mg PO DAILY Ubrelvy 100 mg tablet 100 mg PO ONCE Rx Instructions: as a single dose; may repeat once in >=2 hours after first dose if needed amlodipine 5 mg tablet 5 mg PO DAILY loratadine 10 mg tablet 10 mg PO DAILY cholecalciferol (vitamin D3) 1,250 mcg (50,000 unit) capsule 50,000 unit PO QWEEK Rx Instructions: PT takes on Tuesday meloxicam 15 mg tablet 15 mg PO DAILY cyanocobalamin (vitamin B-12) 1,000 mcg tablet 1,000 mcg PO DAILY Label Comments: TAKE 1 TABLET DAILY acetaminophen 650 mg tablet extended release 1,300 mg PO QHS ascorbic acid (vitamin C) 500 mg tablet 500 mg PO DAILY Label Comments: TAKE 1 TABLET DAILY ferrous sulfate 325 mg (65 mg iron) tablet 325 mg PO DAILY budesonide-formoterol [Symbicort] 160-4.5 mcg/actuation HFA aerosol inhaler 2 puff INHALATION BID Nurtec ODT 75 mg tablet,disintegrating 75 mg PO ONCE gabapentin 100 mg capsule 100 mg PO TID Emgality Pen 120 mg/mL pen injector 120 mg subcut QMONTH Qulipta 30 mg tablet 40 mg PO DAILY lorazepam 2 mg tablet 2 mg PO DAILY PRN (Reason: Anxiety) tizanidine 4 mg tablet 4 mg PO QHS PRN (Reason: muscle relaxer) tramadol 50 mg tablet 50 mg PO BID PRN (Reason: Pain) albuterol sulfate 1 PUFF inhaler 2 puff PO Q4H PRN PRN (Reason: Shortness Of Breath) Label Comments: megestrol 40 mg tablet 40 mg PO QHS valsartan 80 mg tablet 160 mg PO DAILY rosuvastatin [Crestor] 40 mg tablet 40 mg PO QHS Trelegy Ellipta 100-62.5-25 mcg blister with device 1 ea INHALATION DAILY Label Comments: INHALE 1 PUFF BY MOUTH DAILY with good oral care omeprazole 40 mg capsule,delayed release(DR/EC) 40 mg PO DAILY Qty: 30 0RF ondansetron 4 mg tablet,disintegrating 4 mg PO Q8H PRN (Reason: nausea and vomiting) Qty: 10 0RF phenazopyridine [Pyridium] 200 mg tablet 200 mg PO TID PRN PRN (Reason: Bladder Spasms) 7 Days Qty: 30 1RF citalopram 40 mg tablet 40 mg PO DAILY hydroxyzine HCl 25 mg tablet 25 mg PO TID PRN (Reason: Anxiety) levothyroxine 175 mcg tablet 175 mcg PO DAILY Qty: 30 6RF potassium chloride 10 mEq capsule, extended release 10 meq PO DAILY Qty: 30 11RF Primary Care Provider: Casey Lutz NP Referrals: Casey Lutz NP, [employer] [Primary Care Provider] - Disposition Disposition: Acute Care Hospital [facility]
[2022-05-04] MEDS: Ondansetron 4 MG/2 ML Vial IV ×2 (16:03→17:23)
[2022-05-04] MEDS: Morphine 4 MG/ML Syringe IV (16:04)
[2022-05-04 17:01] LABS: Absolute Lymphocyte Count 1.99 X10^3/uL (0.83-4.51); Absolute Neutrophil Count 8.3 X10^3/uL (2.0-7.7); Basophil# 0.06 X10^3/uL; Basophil% 0.5 % (0-1); Eosinophil# 0.04 X10^3/uL; Eosinophils% 0.4 % (0-5); Hematocrit 38.3 % (37-47); Lymphocyte # 1.99 X10^3/ul (0.83-4.51); Lymphocyte % 17.7 % (19-41); Mean Corp Hgb Conc 33.9 g/dL (32-36); Mean Corpuscular Hgb 38.8 pg (27.0-32.0); Mean Corpuscular Volume 114.3 fL (81-99); Mean Platelet Vol. 10.2 fl (6.2-12.0); Monocyte# 0.77 X10^3/uL; Monocyte% 6.9 % (0-10); NRBC Flagged by Analyzer 0 % (0-5); Neutrophil # 8.26 X10^3/uL (2.7-7.7); Neutrophil % 73.5 % (47-70); POSITIVE MORPHOLOGY YES; Platelet Count 312 K/mm3 (150-450); RBC Distribution Width CV 17.2 % (11.6-14.6); RBC Distribution Width SD 73.6 fl (35.1-43.9); Red Blood Count 3.35 M/mm3 (4.2-5.4); White Blood Count 11.2 K/mm3 (4.4-11.0)
[2022-05-04 17:18] LABS: Differential Indicated SCAN CRITERIA MET
[2022-05-04] MEDS: HYDROmorphone 0.5 MG/0.5 ML SYRINGE IV (17:22)
[2022-05-04 17:38] LABS: AST(SGOT) 33 U/L (15-37); Alanine Aminotransfer ALT/SGPT 28 U/L (13-56); Albumin, Serum 4.5 g/dL (3.2-5.0); Alkaline Phosphatase 191 U/L (45-117); Anion Gap 10 (5-15); BUN 16 mg/dL (7-18); BUN/Creat Ratio 12.7 RATIO (10-20); Calcium,Total 10.2 mg/dL (8.5-10.1); Chloride 103 mmol/L (98-107); Creatinine, Serum 1.26 mg/dL (0.55-1.02); EST Glomerular Filtration Rate 47 mL/min (>60); Est Glom Filt Rate - Afr Amer 57 mL/min (>60); Estimated Creatinine Clearance 45.61 ml/min; Globulin 4.6 g/dL (2.2-4.2); Glucose 112 mg/dL (74-106); Potassium 3.5 mmol/L (3.5-5.1); Protein, Total 9.1 g/dL (6.4-8.2); Sodium Level 139 mmol/L (136-145)
--- NOTE | 2022-05-04 17:56 | HP.PCM.HOS_ITS ---
HPI - General General Date of Admission: 05/05/22 Date of Service: 05/04/22 Chief Complaint: abdominal pain HPI Narrative COURTNEY CARMEN, is a 51 F with a PMH as outlined who presents with a complaint of abdominal pain which started the night before admission. She said the pain was mainly around her umbilicus, and had worsened. She denied any fever, chills, chest pain, palpitations, dizziness, nausea, vomiting or diarrhea. Review of systems is otherwise negative. Vitals in the ED were blood pressure 150/78, pulse rate of 77, respiratory rate of 18.4 Fahrenheit. She was saturating at 98% on room air. CBC showed WBC of 11.2 and hemoglobin of 13 as well as platelets of 312. Chemistry was essentially unremarkable apart from creatinine of 1.26. ALP was 191 and total bilirubin was 1.2. CT of the abdomen and pelvis done showed phlegmonous changes in the subcutaneous fat of the umbilicus with adjacent subcutaneous edema or cellulitis but no well-defined abscess collection. She has been admitted to be managed for cellulitis of the umbilical region and abdominal wall. She was given a dose of IV Zosyn in the ED. [facility] Medical History Abnormal glucose Anemia Anxiety Arthritis Asthma BiPAP (biphasic positive airway pressure) dependence Cardiac murmur Cardiology follow-up encounter Celiac disease Chest pain Cholelithiasis Chronic kidney disease Constipation COPD (chronic obstructive pulmonary disease) Depression Diabetes Diabetes mellitus Dietary restriction Difficulty swallowing Dyspnea on exertion Easy bruising Essential hypertension Gastric reflux GERD (gastroesophageal reflux disease) Gout History of chronic back pain History of echocardiogram History of edema History of pain when walking History of stress test Hydronephrosis Hyperlipidemia Hypersomnia Hypertension Hypothyroidism Injury of head and neck Iron deficiency anemia Leg cramps Microcytic anemia Migraine headache Morbid obesity with BMI of 40.0-44.9, adult Non-smoker Noncompliance DAVY treated with BiPAP Post-menopausal Restless leg syndrome Seasonal allergies Shortness of breath on exertion Syncope Thyroid disease Ureterolithiasis UTI (urinary tract infection) Vitamin B12 deficiency Vitamin D deficiency Wears glasses Home Medications citalopram 40 mg tablet 40 mg PO DAILY antidepressant/antianxiety 07/27/19 [History Last Taken 05/04/22] megestrol 40 mg tablet 40 mg PO QHS for heavy menses 09/28/19 [History Last Taken 05/03/22] amlodipine 5 mg tablet 5 mg PO DAILY blood pressure 04/02/20 [History Last Taken 05/04/22] budesonide-formoterol HFA 160 mcg-4.5 mcg/actuation aerosol inhaler (Symbicort) 2 puff inhalation BID inhaler 04/02/20 [History Last Taken 05/04/22] empagliflozin 25 mg tablet (Jardiance) 25 mg PO DAILY diabetes 04/02/20 [History Last Taken 01/05/21] loratadine 10 mg tablet 10 mg PO DAILY PRN ALLERGIES 04/02/20 [History Last Taken 01/05/21] ubrogepant 100 mg tablet (Ubrelvy) 100 mg PO DAILY migraines 04/02/20 [History Last Taken 05/04/22] rimegepant 75 mg disintegrating tablet (Nurtec ODT) 75 mg PO ONCE migraines 06/19/20 [History Last Taken 05/04/22] fluticasone fur. 100 mcg-umeclid 62.5 mcg-vilant 25 mcg inhalat.powder (Trelegy Ellipta) 1 ea inhalation DAILY COPD 08/14/20 [History Last Taken 05/04/22] gabapentin 100 mg capsule 100 mg PO TID neuropathy 09/30/20 [History Last Taken 05/04/22] galcanezumab-gnlm 120 mg/mL subcutaneous pen injector (Emgality Pen) 120 mg subcut QMONTH MIGRAINES 08/19/21 [History Last Taken 04/06/22] ondansetron 4 mg disintegrating tablet 4 mg PO Q8H PRN nausea and vomiting #10 tabs 03/03/22 [Rx Last Taken 05/04/22] tizanidine 4 mg tablet 4 mg PO QHS PRN muscle relaxer 03/03/22 [History Last Taken 05/03/22] tramadol 50 mg tablet 50 mg PO BID PRN Pain 03/03/22 [History Last Taken 05/03/22] albuterol sulfate 90 mcg/actuation breath activated powder inhaler (ProAir RespiClick) 2 inh inhalation 4X/DAY PRN Shortness Of Breath 05/04/22 [History Last Taken 05/04/22] atogepant 60 mg tablet (Qulipta) 60 mg PO DAILY MIGRAINES 05/04/22 [History Last Taken 05/04/22] levothyroxine 175 mcg tablet 175 mcg PO DAILY THYROID 05/04/22 [History Last Taken 05/04/22] lorazepam 1 mg tablet 1 mg PO TID PRN Anxiety 05/04/22 [History Last Taken Unknown] omeprazole 40 mg capsule,delayed release 40 mg PO DAILY ACID REFLUX 05/04/22 [History Last Taken 05/04/22] valsartan 320 mg tablet 320 mg PO DAILY BLOOD PRESSURE 05/04/22 [History Last Taken 2 Months Ago ~03/06/22] Allergy/AdvReac Type Severity Reaction Status Date / Time hydrochlorothiazide AdvReac Intermediate Contributes Verified 05/04/22 15:29 to gout naproxen [From Naprosyn] AdvReac Intermediate Nausea Verified 05/04/22 15:29 aspirin AdvReac Nausea Verified 05/04/22 15:29 Family History Father , Age 72 Hypertension Mother CAD (coronary artery disease) Myocardial infarction, Onset Age: 55 Hypertension Sister CAD (coronary artery disease) Brother Cancer Surgical History History of History of cardiac catheterization History of carpal tunnel surgery of left wrist History of carpal tunnel surgery of right wrist History of left heart catheterization (11/11/20) history of uterine ablation Hx of cystoscopy Social History Smoking Status: Never smoker alcohol intake: never substance use type: does not use caffeine: No ROS Constitutional Constitutional: Reports malaise and weakness; Denies anorexia, chills, fatigue or fever(s) ENT HEENT: Denies dysphagia, headache(s), nasal congestion or sore throat Cardiovascular Cardiovascular: Denies chest pain, dyspnea on exertion, edema, lightheadedness, orthopnea, palpitations, rapid heart rate or syncope Respiratory/Chest Respiratory/Chest: Denies cough, excessive phlegm production, productive cough, shortness of breath at rest or shortness of breath with exertion Gastrointestinal Gastrointestinal: Reports abdominal pain; Denies constipation, diarrhea, dyspepsia, hematemesis, nausea or vomiting Genitourinary Genitourinary: Denies burning urination or dysuria Musculoskeletal Musculoskeletal: Denies arthralgias Neurologic Neurologic: Denies abnormal gait, confusion, headache(s), seizures or syncope Psychiatric Psychiatric: Denies anxiety or depression Endocrine Endocrinology: Denies change in body appearance Hematologic/Lymphatic Hematologic/Lymphatic: Denies anemia Vital Signs Vital Signs Vital Signs: 05/04/22 15:28 05/04/22 15:28 05/04/22 15:29 Temperature 97.2 F L 97.2 F L 97.2 F L Temperature Source Temporal Temporal Temporal Pulse Rate 95 82 86 Respiratory Rate 18 16 16 Blood Pressure 190/112 H 170/93 H 170/93 H Blood Pressure Mean 138 118 118 Pulse Ox 99 98 99 Oxygen Delivery Method Room Air Room Air Room Air 05/04/22 16:29 05/04/22 16:59 05/04/22 17:03 Temperature 97.3 F L 97.4 F L 97.4 F L Temperature Source Temporal Temporal Temporal Pulse Rate 66 66 77 Respiratory Rate 16 18 18 Blood Pressure 149/69 H 150/78 H 150/78 H Blood Pressure Mean 95 102 102 Pulse Ox 100 98 98 Oxygen Delivery Method Room Air Room Air Room Air Weight Weight: 265 lb Body Mass Index (BMI) 45.4 Physical Exam Const alert, oriented x3 and no apparent distress Constitutional Narrative: super morbid obesity General Appearance: cooperative HEENT normocephalic, head/scalp atraumatic, hearing grossly normal bilaterally and moist oral mucous membranes Mouth: oral and palatal mucosa normal Eyes PERRL, EOMs intact bilaterally and conjunctivae normal Resp normal respiratory effort, no retractions, no use of accessory muscles and clear to auscultation bilaterally Cardio regular rate, regular rhythm, S1 normal heart sound, S2 normal heart sound and no murmurs GI normal to inspection, nondistended, normoactive bowel sounds and soft to palpation GI Narrative: erythema of the abdominal wall, mainly in the periumbilical region, with tenderness and differential warmth. has area of induration at 3 o'clock at the umbilicus, which is firm and tender. Extremity normal to inspection, full ROM and no clubbing, cyanosis or edema Neuro oriented x3, CN's II-XII intact bilaterally, moves all extremities and no focal motor deficits Sensorium / Orientation: awake and alert Motor Exam: strength 5/5 throughout Psych affect normal Results Lab / Micro Data Result Diagrams: 05/05/22 05:55 05/05/22 05:55 Labs: Laboratory Results - last 24 hr 05/04/22 15:55: WBC 11.2 H, RBC 3.35 L, Hgb 13.0, Hct 38.3, MCV 114.3 H, MCH 38.8 H, MCHC 33.9, RDW Std Deviation 73.6 H, RDW Coeff of Alfredo 17.2 H, Plt Count 312, MPV 10.2, Immature Gran % (Auto) 1.000 H, Neut % (Auto) 73.5 H, Lymph % (Auto) 17.7 L, Bollinger % (Auto) 6.9, Eos % (Auto) 0.4, Baso % (Auto) 0.5, Absolute Neuts (auto) 8.3 H, Absolute Lymphs (auto) 1.99, Nucleated RBC % 0 05/04/22 15:55: Sodium 139, Potassium 3.5, Chloride 103, Carbon Dioxide 26.0, Anion Gap 10, BUN 16, Creatinine 1.26 H, Estim Creat Clear Calc 45.61, Est GFR (MDRD) Af Amer 57 L, Est GFR (MDRD) Non-Af 47 L, BUN/Creatinine Ratio 12.7, Glucose 112 H, Calcium 10.2 H, Total Bilirubin 1.20 H, AST 33, ALT 28, Alkaline Phosphatase 191 H, Total Protein 9.1 H, Albumin 4.5, Globulin 4.6 H, Albumin/Globulin Ratio 1.0 Radiology Impression Abdomen/Pelvis CT 05/04/22 15:37 IMPRESSION: Nonspecific phlegmonous changes within the umbilical fat without definitive evidence for well-defined abscess Bilateral nephrolithiasis without evidence of hydronephrosis] at this time. . Multiple bilateral parapelvic renal cysts Electronically Signed: Isaac Aviles MD at 17:15 EST , Assessment & Plan Assessment/Plan (1) Cellulitis: PLAN: Plan #Cellulitis of the abdominal wall and umbulical region * Admit to [facility]. * Symptoms started just [address] of the abdomen and pelvis showed phlegmonous changes and cellulitic changes of the abdominal wall with no evidence of abscess. * Will put on IV cefazolin. * Check blood cultures. P.o. Tylenol, p.o. oxycodone and IV morphine as needed for pain * Hydrate gently with IV fluids. * Outline erythematous areas to monitor for resolution. * #Type 2 diabetes mellitus: On empagliflozin. Insulin sliding scale. Accu-Cheks ACHS. #Hypertension: On valsartan and metoprolol as well as amlodipine #GERD:on famotidine #Hyperlipidemia: On statin #Hypothyroidism: On Synthroid #History of migraine headaches. On atogepant DVT prophylaxis: lovenox Total time spent on care of the patient including reviewing patient [id number], evaluation and management, discussion with the ED doctor, discussion with ancillary staff and nursing staff, review of chart as well as documentation: 65 minutes. Charges/Coding Visit Charges Inpatient E&M: 55064 Init Hosp L2
[2022-05-04 17:57] LABS: Anisocytosis RARE; Differential Comment SCANNED
--- NOTE | 2022-05-04 17:57 | NURSING ---
DR AMBROSIO CARRINGTON
--- NOTE | 2022-05-04 18:10 | NURSING ---
MED SURG KORAM CELLULITIS
[2022-05-04] MEDS: 0.9% Normal Saline 1,000 ML 125 ML IV (19:01)
[2022-05-04 19:41] LABS: Bedside Glucose 93 mg/dL (74-106)
[2022-05-04] MEDS: oxyCODONE 5 MG Tablet 10 MG PO (21:32)
[2022-05-04 22:05] LABS: Bedside Glucose 105 mg/dL (74-106)
[2022-05-04] MEDS: Megestrol 40 MG Tablet PO (22:58)
[2022-05-04] MEDS: Enoxaparin 40 MG/0.4 ML Syringe SC (22:58)
[2022-05-04] MEDS: Cefazolin 1 GM/50 ML BAG IV (22:58)
[2022-05-04] MEDS: Gabapentin 100 MG Capsule PO (22:58)
[2022-05-04] MEDS: LORazepam 1 MG Tablet PO (22:58)
[2022-05-04] MEDS: tiZANidine HCl 2 MG Tablet 4 MG PO (23:17)
[2022-05-05] VITALS (14 sets, daily range): BP systolic 136–151; BP diastolic 70–98; PULSE 56–103; RESP 12–23; TEMP 36.6–37.1; O2SAT 94–99
[2022-05-05] MEDS: HYDROmorphone 1 MG/ML Syringe IV ×2 (00:19→06:24)
[2022-05-05] MEDS: 0.9% Normal Saline 1,000 ML 125 ML IV (00:24)
--- NOTE | 2022-05-05 00:27 | NURSING ---
Pt requesting lots of meds to sedate her. Inform pt i will give the dilaudid this time after that tylenol. To many meds to decrease her resp in her system. pt voiced understanding
[2022-05-05] MEDS: Levothyroxine 175 MCG Tablet PO (04:51)
[2022-05-05] MEDS: Cefazolin 1 GM/50 ML BAG IV ×3 (04:51→22:30)
[2022-05-05] MEDS: Gabapentin 100 MG Capsule PO ×3 (04:51→21:23)
[2022-05-05] MEDS: oxyCODONE 5 MG Tablet 10 MG PO ×4 (04:52→19:44)
[2022-05-05 06:33] LABS: Absolute Lymphocyte Count 1.63 X10^3/uL (0.83-4.51); Basophil# 0.05 X10^3/uL; Basophil% 0.6 % (0-1); Eosinophil# 0.07 X10^3/uL; Eosinophils% 0.8 % (0-5); Hematocrit 32.6 % (37-47); Hemoglobin 10.9 g/dL (12.0-15.0); Lymphocyte # 1.63 X10^3/ul (0.83-4.51); Lymphocyte % 19.4 % (19-41); Mean Corp Hgb Conc 33.4 g/dL (32-36); Mean Corpuscular Hgb 38.7 pg (27.0-32.0); Mean Corpuscular Volume 115.6 fL (81-99); Mean Platelet Vol. 9.9 fl (6.2-12.0); Monocyte# 0.62 X10^3/uL; Monocyte% 7.4 % (0-10); NRBC Flagged by Analyzer 0 % (0-5); Neutrophil # 5.96 X10^3/uL (2.7-7.7); POSITIVE MORPHOLOGY YES; Platelet Count 272 K/mm3 (150-450); RBC Distribution Width CV 17.2 % (11.6-14.6); RBC Distribution Width SD 73.9 fl (35.1-43.9); Red Blood Count 2.82 M/mm3 (4.2-5.4); White Blood Count 8.4 K/mm3 (4.4-11.0)
[2022-05-05 06:36] LABS: Differential Indicated SCAN CRITERIA MET
[2022-05-05 06:40] LABS: Bedside Glucose 113 mg/dL (74-106)
[2022-05-05 07:10] LABS: Anisocytosis 1+; Macrocytosis 2+
[2022-05-05 07:18] LABS: ALB/GLOB Ratio 0.9 RATIO (0.9-2.4); AST(SGOT) 24 U/L (15-37); Alanine Aminotransfer ALT/SGPT 25 U/L (13-56); Albumin, Serum 3.3 g/dL (3.2-5.0); Alkaline Phosphatase 174 U/L (45-117); Anion Gap 7 (5-15); BUN 13 mg/dL (7-18); BUN/Creat Ratio 11.8 RATIO (10-20); Chloride 108 mmol/L (98-107); EST Glomerular Filtration Rate 56 mL/min (>60); Est Glom Filt Rate - Afr Amer 67 mL/min (>60); Estimated Creatinine Clearance 52.25 ml/min; Globulin 3.6 g/dL (2.2-4.2); Glucose 125 mg/dL (74-106); Potassium 3.4 mmol/L (3.5-5.1); Protein, Total 6.9 g/dL (6.4-8.2); Sodium Level 139 mmol/L (136-145)
[2022-05-05] MEDS: tiZANidine HCl 2 MG Tablet 4 MG PO (08:35)
[2022-05-05] MEDS: LORazepam 1 MG Tablet PO ×2 (08:35→19:44)
[2022-05-05] MEDS: Losartan Potassium 100 MG Tablet PO (08:36)
[2022-05-05] MEDS: Enoxaparin 40 MG/0.4 ML Syringe SC ×2 (08:36→21:20)
[2022-05-05] MEDS: Pantoprazole Sodium 40 MG Tablet PO (08:36)
[2022-05-05] MEDS: amLODIPine 5 MG Tablet PO (08:36)
[2022-05-05] MEDS: Citalopram 40 MG TABLET PO (08:36)
[2022-05-05] MEDS: Ondansetron 4 MG/2 ML Vial IV (08:59)
[2022-05-05] MEDS: 0.9% Saline Lock 10 ML Syringe IV ×3 (09:00→22:41)
--- NOTE | 2022-05-05 10:40 | PN_ITS ---
Subjective Subjective Patient seen and Ament. She was lying comfortably in bed but during my review started complaining of periumbilical pain and abdominal wall pain. She denied any fever, chills, cough, chest pain, palpitations, dizziness, nausea, vomiting or diarrhea. Review of systems is otherwise negative. Objective Data Objective Data Vital Signs: Vital Signs Temp Pulse Resp BP Pulse Ox O2 Del Method FiO2 98.0 F 75 16 151/98 H 99 Room Air 21 05/05/22 08:45 05/05/22 08:45 05/05/22 08:45 05/05/22 08:45 05/05/22 08:45 05/05/22 08:45 05/05/22 04:25 Oxygen Delivery Method Room Air Weight: 266 lb 8.622 oz Body Mass Index (BMI) 45.7 Intake & Output: Intake and Output for Last 24 Hours 05/03/22 05/04/22 05/05/22 23:59 23:59 23:59 Intake Total 685 / 1005 2162.92 / 2162.92 Balance 685 / 1005 2162.92 / 2162.92 Lab / Micro Data Result Diagrams: 05/05/22 05:55 05/05/22 05:55 Labs: Laboratory Results - last 24 hr 05/04/22 15:55: WBC 11.2 H, RBC 3.35 L, Hgb 13.0, Hct 38.3, MCV 114.3 H, MCH 38.8 H, MCHC 33.9, RDW Std Deviation 73.6 H, RDW Coeff of Alfredo 17.2 H, Plt Count 312, MPV 10.2, Immature Gran % (Auto) 1.000 H, Neut % (Auto) 73.5 H, Lymph % (Auto) 17.7 L, Antelope % (Auto) 6.9, Eos % (Auto) 0.4, Baso % (Auto) 0.5, Absolute Neuts (auto) 8.3 H, Absolute Lymphs (auto) 1.99, Nucleated RBC % 0, Differential Comment SCANNED, Anisocytosis RARE 05/04/22 15:55: Sodium 139, Potassium 3.5, Chloride 103, Carbon Dioxide 26.0, Anion Gap 10, BUN 16, Creatinine 1.26 H, Estim Creat Clear Calc 45.61, Est GFR (MDRD) Af Amer 57 L, Est GFR (MDRD) Non-Af 47 L, BUN/Creatinine Ratio 12.7, Glucose 112 H, Calcium 10.2 H, Total Bilirubin 1.20 H, AST 33, ALT 28, Alkaline Phosphatase 191 H, Total Protein 9.1 H, Albumin 4.5, Globulin 4.6 H, Albumin/Globulin Ratio 1.0 05/04/22 15:55: Hemoglobin A1c 6.0 H 05/04/22 19:21: POC Glucose 93 05/04/22 21:31: POC Glucose 105 05/05/22 05:55: WBC 8.4, RBC 2.82 L, Hgb 10.9 L, Hct 32.6 L, MCV 115.6 H, MCH 38.7 H, MCHC 33.4, RDW Std Deviation 73.9 H, RDW Coeff of Alfredo 17.2 H, Plt Count 272, MPV 9.9, Immature Gran % (Auto) 0.800, Neut % (Auto) 71.0 H, Lymph % (Auto) 19.4, Antelope % (Auto) 7.4, Eos % (Auto) 0.8, Baso % (Auto) 0.6, Absolute Neuts (auto) 6.0, Absolute Lymphs (auto) 1.63, Nucleated RBC % 0, Anisocytosis 1+, Macrocytosis 2+ 05/05/22 05:55: Sodium 139, Potassium 3.4 L, Chloride 108 H, Carbon Dioxide 24.0, Anion Gap 7, BUN 13, Creatinine 1.10 H, Estim Creat Clear Calc 52.25, Est GFR (MDRD) Af Amer 67, Est GFR (MDRD) Non-Af 56 L, BUN/Creatinine Ratio 11.8, Glucose 125 H, Calcium 9.0, Total Bilirubin 0.80, AST 24, ALT 25, Alkaline Phosphatase 174 H, Total Protein 6.9, Albumin 3.3, Globulin 3.6, Albumin/Globulin Ratio 0.9 05/05/22 06:20: POC Glucose 113 H Radiography Diagnostic Testing: Radiology Impression Abdomen/Pelvis CT 05/04/22 15:37 IMPRESSION: Nonspecific phlegmonous changes within the umbilical fat without definitive evidence for well-defined abscess Bilateral nephrolithiasis without evidence of hydronephrosis] at this time. . Multiple bilateral parapelvic renal cysts Electronically Signed: Isaac Aviles MD at 17:15 EST Reading Location ID and State: [facility] / MD , Service support , Physical Exam Const alert, oriented x3 and no apparent distress Constitutional Narrative: super morbid obesity General Appearance: cooperative HEENT normocephalic, head/scalp atraumatic, hearing grossly normal bilaterally and moist oral mucous membranes Eyes PERRL, EOMs intact bilaterally and conjunctivae normal Resp normal respiratory effort, no retractions, no use of accessory muscles and clear to auscultation bilaterally Cardio regular rate, regular rhythm, S1 normal heart sound, S2 normal heart sound and no murmurs GI normal to inspection, nondistended, normoactive bowel sounds and soft to palpation Extremity normal to inspection, full ROM and no clubbing, cyanosis or edema Skin Skin Narrative: periumbilical erythema with firm induration at 3 o'clock region of the umbilicus, which is improving Neuro CN's II-XII intact bilaterally, no focal motor deficits and no sensory deficits noted Sensorium / Orientation: awake and alert Motor Exam: strength 5/5 throughout Psych affect normal Assessment & Plan Assessment/Plan (1) Cellulitis: PLAN: Plan #Cellulitis of the abdominal wall and umbulical region * redness and induration at umbilicus is improving. * CT of the abdomen and pelvis showed phlegmonous changes and cellulitic changes of the abdominal wall with no evidence of abscess. * on IV cefazolin * blood cultures pending * Tylenol, p.o. oxycodone and IV morphine as needed for pain * * #Type 2 diabetes mellitus: On empagliflozin. Insulin sliding scale. Accu-Cheks ACHS. #Hypertension: On valsartan and metoprolol as well as amlodipine #GERD:on famotidine #Hyperlipidemia: On statin #Hypothyroidism: On Synthroid #History of migraine headaches. On atogepant DVT prophylaxis: lovenox Charges/Coding Visit Charges Inpatient E&M: 80263 Subs Hosp L2
[2022-05-05] MEDS: Ipratropium/Albuterol Sulfate 3 ML AMPUL.NEB INHALATION ×3 (11:01→18:56)
[2022-05-05] MEDS: Budesonide Respules 0.5 MG/2 ML AMPUL.NEB. INHALATION ×2 (11:01→18:57)
[2022-05-05 11:46] LABS: Bedside Glucose 124 mg/dL (74-106)
--- NOTE | 2022-05-05 13:17 | CASEMGMT ---
INEZ SHORE in to discuss ROBERT form with patient. INEZ SHORE explained ROBERT form, patient voiced understanding. Pt signed form and filed in chart. Pt provided with a copy of signed ROBERT form. Pt sitting up at eob with visitor at bedside eating lunch. Pt denies any homegoing needs. Patient had no further questions or concerns at this time.
[2022-05-05 17:20] LABS: Bedside Glucose 97 mg/dL (74-106)
[2022-05-05] MEDS: Megestrol 40 MG Tablet PO (21:21)
[2022-05-05 23:05] LABS: Bedside Glucose 147 mg/dL (74-106)
[2022-05-06] MEDS: Acetaminophen 325 MG Tablet 650 MG PO (01:45)
[2022-05-06] MEDS: oxyCODONE 5 MG Tablet 10 MG PO ×2 (01:45→06:40)
[2022-05-06 02:00] VITALS: BP 151/84; PULSE 85; RESP 18; TEMP 37; O2SAT 94
[2022-05-06 03:30] VITALS: RESP 18; O2SAT 88
[2022-05-06 04:00] VITALS: O2SAT 94
[2022-05-06] MEDS: tiZANidine HCl 2 MG Tablet 4 MG PO ×2 (04:09→10:41)
[2022-05-06] MEDS: LORazepam 1 MG Tablet PO (04:09)
[2022-05-06] MEDS: Ondansetron 4 MG/2 ML Vial IV (04:17)
[2022-05-06] MEDS: Cefazolin 1 GM/50 ML BAG IV (06:35)
[2022-05-06] MEDS: Gabapentin 100 MG Capsule PO (06:40)
[2022-05-06] MEDS: Levothyroxine 175 MCG Tablet PO (06:40)
[2022-05-06 07:07] LABS: Absolute Neutrophil Count 6.8 X10^3/uL (2.0-7.7); Eosinophil# 0.07 X10^3/uL; Eosinophils% 0.7 % (0-5); Hematocrit 36.4 % (37-47); Hemoglobin 12.3 g/dL (12.0-15.0); Lymphocyte % 19.6 % (19-41); Mean Corp Hgb Conc 33.8 g/dL (32-36); Mean Corpuscular Hgb 38.8 pg (27.0-32.0); Mean Corpuscular Volume 114.8 fL (81-99); Mean Platelet Vol. 10.7 fl (6.2-12.0); Monocyte# 0.74 X10^3/uL; Monocyte% 7.6 % (0-10); NRBC Flagged by Analyzer 0 % (0-5); Neutrophil # 6.76 X10^3/uL (2.7-7.7); Neutrophil % 69.7 % (47-70); POSITIVE COUNT YES; POSITIVE MORPHOLOGY YES; RBC Distribution Width SD 72.5 fl (35.1-43.9); Red Blood Count 3.17 M/mm3 (4.2-5.4); White Blood Count 9.7 K/mm3 (4.4-11.0)
[2022-05-06 07:08] LABS: Differential Indicated SCAN CRITERIA MET
[2022-05-06 07:11] LABS: Bedside Glucose 123 mg/dL (74-106)
[2022-05-06 07:21] LABS: ALB/GLOB Ratio 0.9 RATIO (0.9-2.4); AST(SGOT) 22 U/L (15-37); Alanine Aminotransfer ALT/SGPT 23 U/L (13-56); Albumin, Serum 3.4 g/dL (3.2-5.0); Alkaline Phosphatase 166 U/L (45-117); Anion Gap 9 (5-15); BUN 14 mg/dL (7-18); BUN/Creat Ratio 11.3 RATIO (10-20); Calcium,Total 9.4 mg/dL (8.5-10.1); Chloride 106 mmol/L (98-107); Creatinine, Serum 1.24 mg/dL (0.55-1.02); EST Glomerular Filtration Rate 48 mL/min (>60); Est Glom Filt Rate - Afr Amer 59 mL/min (>60); Estimated Creatinine Clearance 46.35 ml/min; Globulin 3.9 g/dL (2.2-4.2); Glucose 120 mg/dL (74-106); Potassium 3.8 mmol/L (3.5-5.1); Protein, Total 7.3 g/dL (6.4-8.2); Sodium Level 138 mmol/L (136-145)
[2022-05-06 07:24] VITALS: PULSE 92; RESP 18
[2022-05-06] MEDS: Ipratropium/Albuterol Sulfate 3 ML AMPUL.NEB INHALATION ×2 (07:44→13:01)
[2022-05-06] MEDS: Budesonide Respules 0.5 MG/2 ML AMPUL.NEB. INHALATION (07:44)
[2022-05-06 07:51] LABS: Anisocytosis 1+; Differential Comment SCANNED; Hypersegmented Neutrophils 2+
[2022-05-06 07:55] LABS: Platelet Estimate ADEQUATE (ADEQ)
[2022-05-06 10:29] VITALS: BP 132/76; PULSE 80; RESP 18; TEMP 36.7; O2SAT 95
[2022-05-06] MEDS: Citalopram 40 MG TABLET PO (10:38)
[2022-05-06] MEDS: Enoxaparin 40 MG/0.4 ML Syringe SC (10:39)
[2022-05-06] MEDS: Losartan Potassium 100 MG Tablet PO (10:39)
[2022-05-06] MEDS: amLODIPine 5 MG Tablet PO (10:39)
[2022-05-06] MEDS: Pantoprazole Sodium 40 MG Tablet PO (10:39)
--- NOTE | 2022-05-06 11:58 | PCM.DC.SUM ---
Providers Date of Admission: 05/05/22 Date of Discharge: 05/06/22 Primary Care Physician: Casey Lutz, [employer] Reason For Visit: CELLULITIS Diagnosis Discharge Diagnosis (1) Cellulitis: Status: Acute Code(s): L03.90 - Cellulitis, unspecified Plan #Cellulitis of the abdominal wall and umbulical region Admit to [facility]. Symptoms started just [address] of the abdomen and pelvis showed phlegmonous changes and cellulitic changes of the abdominal wall with no evidence of abscess. Will put on IV cefazolin. Check blood cultures. P.o. Tylenol, p.o. oxycodone and IV morphine as needed for pain Hydrate gently with IV fluids. Outline erythematous areas to monitor for resolution. #Type 2 diabetes mellitus: On empagliflozin. Insulin sliding scale. Accu-Cheks ACHS. #Hypertension: On valsartan and metoprolol as well as amlodipine #GERD:on famotidine #Hyperlipidemia: On statin #Hypothyroidism: On Synthroid #History of migraine headaches. On atogepant DVT prophylaxis: lovenox Total time spent on care of the patient including reviewing patient [id number], evaluation and management, discussion with the ED doctor, discussion with ancillary staff and nursing staff, review of chart as well as documentation: 65 minutes. Medications at Discharge Home Medications citalopram 40 mg tablet 40 mg PO DAILY antidepressant/antianxiety 07/27/19 megestrol 40 mg tablet 40 mg PO QHS for heavy menses 09/28/19 amlodipine 5 mg tablet 5 mg PO DAILY blood pressure 04/02/20 budesonide-formoterol HFA 160 mcg-4.5 mcg/actuation aerosol inhaler (Symbicort) 2 puff inhalation BID inhaler 04/02/20 empagliflozin 25 mg tablet (Jardiance) 25 mg PO DAILY diabetes 04/02/20 loratadine 10 mg tablet 10 mg PO DAILY PRN ALLERGIES 04/02/20 ubrogepant 100 mg tablet (Ubrelvy) 100 mg PO DAILY migraines 04/02/20 rimegepant 75 mg disintegrating tablet (Nurtec ODT) 75 mg PO ONCE migraines 06/19/20 fluticasone fur. 100 mcg-umeclid 62.5 mcg-vilant 25 mcg inhalat.powder (Trelegy Ellipta) 1 ea inhalation DAILY COPD 08/14/20 gabapentin 100 mg capsule 100 mg PO TID neuropathy 09/30/20 galcanezumab-gnlm 120 mg/mL subcutaneous pen injector (Emgality Pen) 120 mg subcut QMONTH MIGRAINES 08/19/21 ondansetron 4 mg disintegrating tablet 4 mg PO Q8H PRN nausea and vomiting #10 tabs 03/03/22 tizanidine 4 mg tablet 4 mg PO QHS PRN muscle relaxer 03/03/22 tramadol 50 mg tablet 50 mg PO BID PRN Pain 03/03/22 albuterol sulfate 90 mcg/actuation breath activated powder inhaler (ProAir RespiClick) 2 inh inhalation 4X/DAY PRN Shortness Of Breath 05/04/22 atogepant 60 mg tablet (Qulipta) 60 mg PO DAILY MIGRAINES 05/04/22 levothyroxine 175 mcg tablet 175 mcg PO DAILY THYROID 05/04/22 lorazepam 1 mg tablet 1 mg PO TID PRN Anxiety 05/04/22 omeprazole 40 mg capsule,delayed release 40 mg PO DAILY ACID REFLUX 05/04/22 valsartan 320 mg tablet 320 mg PO DAILY BLOOD PRESSURE 05/04/22 cephalexin 500 mg capsule 500 mg PO Q8H 5 days #15 caps 05/06/22 Hospital Course Operations None Procedures None Summary of Care Provided Minutes Spent on Discharge: 50 Hospital Course: COURTNEY CARMEN, is a 51 F with a PMH as outlined who presents with a complaint of abdominal pain which started the night before admission. She said the pain was mainly around her umbilicus, and had worsened. She denied any fever, chills, chest pain, palpitations, dizziness, nausea, vomiting or diarrhea. Review of systems is otherwise negative. Vitals in the ED were blood pressure 150/78, pulse rate of 77, respiratory rate of 18.4 Fahrenheit.? She was saturating at 98% on room air.? CBC showed WBC of 11.2 and hemoglobin of 13 as well as platelets of 312.? Chemistry was essentially unremarkable apart from creatinine of 1.26.? ALP was 191 and total bilirubin was 1.2.? CT of the abdomen and pelvis done showed phlegmonous changes in the subcutaneous fat of the umbilicus with adjacent subcutaneous edema or cellulitis but no well-defined abscess collection.? She has been admitted to be managed for cellulitis of the umbilical region and abdominal wall.? She was given a dose of IV Zosyn in the ED. she was admitted and managed for cellulitis of the abdominal wall. She was placed on IV cefazolin. Pain and induration around the umbilicus gradually improved and then resolved. She felt much better. She remained stable and was discharged home on 05/06/2022. She is to follow up with her PCP within 1-2 weeks. She was discharged on PO Keflex for a 5 day course. Patient seen and examined prior to discharge. She had no active complaints and had an uneventful night. She felt much better. Review of systems otherwise negative. Labs and vitals reviewed. Medication reviewed and reconciled. Physical Exam Const alert, oriented x3 and no apparent distress Constitutional Narrative: super morbid obesity General Appearance: cooperative and comfortable Orientation / Consciousness: awake Exam Limitations: no limitations HEENT normocephalic, head/scalp atraumatic, hearing grossly normal bilaterally and moist oral mucous membranes Mouth: oral and palatal mucosa normal Eyes PERRL, EOMs intact bilaterally and conjunctivae normal Resp normal respiratory effort, no retractions, no use of accessory muscles and clear to auscultation bilaterally Cardio regular rate, regular rhythm, S1 normal heart sound, S2 normal heart sound and no murmurs GI normal to inspection, nondistended, normoactive bowel sounds and soft to palpation GI Narrative: erythema of abdominal wall and induration Extremity normal to inspection, full ROM and no clubbing, cyanosis or edema Skin Skin Narrative: periumbilical erythema with firm induration at 3 o'clock region of the umbilicus has largely resolved. Abdominal wall erythema and redness has also resolved. Neuro oriented x3, CN's II-XII intact bilaterally, moves all extremities, no focal motor deficits and no sensory deficits noted Sensorium / Orientation: awake and alert Motor Exam: strength 5/5 throughout Psych affect normal Weight / BMI Weight Weight: 266 lb 8.622 oz Body Mass Index (BMI) 45.7 ABG / Lab / Microbiology Data Result Diagrams: 05/06/22 06:35 05/06/22 06:35 Laboratory: Laboratory Results - last 24 hr 05/05/22 16:56: POC Glucose 97 05/05/22 21:17: POC Glucose 147 H 05/06/22 06:35: WBC 9.7, RBC 3.17 L, Hgb 12.3, Hct 36.4 L, MCV 114.8 H, MCH 38.8 H, MCHC 33.8, RDW Std Deviation 72.5 H, RDW Coeff of Alfredo 17.0 H, Plt Count , MPV 10.7, Immature Gran % (Auto) 1.400 H, Neut % (Auto) 69.7, Lymph % (Auto) 19.6, [place] % (Auto) 7.6, Eos % (Auto) 0.7, Baso % (Auto) 1.0, Absolute Neuts (auto) 6.8, Absolute Lymphs (auto) 1.90, Nucleated RBC % 0, Differential Comment SCANNED, Diff Path Review May foll, Hypersegmented Neuts 2+ H, Platelet Estimate ADEQUATE, Anisocytosis 1+ 05/06/22 06:35: Sodium 138, Potassium 3.8, Chloride 106, Carbon Dioxide 23.0, Anion Gap 9, BUN 14, Creatinine 1.24 H, Estim Creat Clear Calc 46.35, Est GFR (MDRD) Af Amer 59 L, Est GFR (MDRD) Non-Af 48 L, BUN/Creatinine Ratio 11.3, Glucose 120 H, Calcium 9.4, Total Bilirubin 0.70, AST 22, ALT 23, Alkaline Phosphatase 166 H, Total Protein 7.3, Albumin 3.4, Globulin 3.9, Albumin/Globulin Ratio 0.9 05/06/22 06:37: POC Glucose 123 H Microbiology: Microbiology 05/04/22 21:21 Blood Culture (Wb) - Right Hand Blood Culture - Preliminary No growth in 48 hours. 05/05/22 05:55 Blood Culture (Wb) - Right Forearm Blood Culture - Preliminary No growth in 48 hours. D/C Instructions Discharge Diet: Low fat / Low cholesterol and 1800 Calorie Control Diet Discharge Activity: Return to Normal Activity Weight Bearing Status: Weight bearing as tolerated Call your doctor if you observe: Fever of 101 or Higher and Uncontrolled pain Meaningful Use Info Meaningful Use Diagnoses (Choose all that apply): None applicable Discharge Plan Admission Admit Date/Time: 05/05/22 10:31 Primary Reason for Your Visit: abdominal wall cellulitis Attending Provider: Daria Knight Primary Care Provider: Casey Lutz [employer] Instructions Patient Instructions: Cellulitis Discharge Orders/Prescriptions Prescriptions: New cephalexin 500 mg capsule 500 mg PO Q8H 5 Days Qty: 15 0RF Continued Jardiance 25 mg tablet 25 mg PO DAILY Ubrelvy 100 mg tablet 100 mg PO DAILY Rx Instructions: as a single dose; may repeat once in >=2 hours after first dose if needed amlodipine 5 mg tablet 5 mg PO DAILY loratadine 10 mg tablet 10 mg PO DAILY PRN (Reason: ALLERGIES) budesonide-formoterol [Symbicort] 160-4.5 mcg/actuation HFA aerosol inhaler 2 puff INHALATION BID Nurtec ODT 75 mg tablet,disintegrating 75 mg PO ONCE gabapentin 100 mg capsule 100 mg PO TID Emgality Pen 120 mg/mL pen injector 120 mg subcut QMONTH tizanidine 4 mg tablet 4 mg PO QHS PRN (Reason: muscle relaxer) tramadol 50 mg tablet 50 mg PO BID PRN (Reason: Pain) megestrol 40 mg tablet 40 mg PO QHS Trelegy Ellipta 100-62.5-25 mcg blister with device 1 ea INHALATION DAILY ondansetron 4 mg tablet,disintegrating 4 mg PO Q8H PRN (Reason: nausea and vomiting) Qty: 10 0RF valsartan 320 mg tablet 320 mg PO DAILY ProAir RespiClick 90 mcg/actuation aerosol powdr breath activated 2 inh INHALATION 4X/DAY PRN (Reason: Shortness Of Breath) levothyroxine 175 mcg tablet 175 mcg PO DAILY omeprazole 40 mg capsule,delayed release(DR/EC) 40 mg PO DAILY lorazepam 1 mg tablet 1 mg PO TID PRN (Reason: Anxiety) Qulipta 60 mg tablet 60 mg PO DAILY citalopram 40 mg tablet 40 mg PO DAILY Referrals / Follow Up: Casey Lutz [employer], [employer] [Primary Care Provider] - Within 2 Weeks Disposition Disposition (needs filled in before D/C Order can be placed): Home, Self Care Charges/Coding Visit Charges Inpatient E&M: 51045 Disch Hosp >30min
[2022-05-06 12:25] LABS: Bedside Glucose 151 mg/dL (74-106)
[2022-05-06 13:29] LABS: Pathologist Review Reviewed
== END 2022-05-06 13:14 | disposition home or self-care (01) ==
LOC: ED 18:03 → MS3 18:25
PROVIDERS: Admitting Provider Student in an Organized Health Care Education/Training Program; Emergency Provider Emergency Medicine; PCP Nurse Practitioner Family; Visit Provider Student in an Organized Health Care Education/Training Program
DX: L03.311 Cellulitis of abdominal wall (principal); J44.9 Chronic obstructive pulmonary disease, unspecified; E11.22 Type 2 diabetes mellitus with diabetic chronic kidney disease; Z68.42 Body mass index [BMI] 45.0-49.9, adult; E66.01 Morbid (severe) obesity due to excess calories; E03.9 Hypothyroidism, unspecified; E78.5 Hyperlipidemia, unspecified; N18.9 Chronic kidney disease, unspecified; I12.9 Hypertensive chronic kidney disease with stage 1 through stage 4 chronic kidney disease, or unspecified chronic kidney disease; K21.9 Gastro-esophageal reflux disease without esophagitis; G89.29 Other chronic pain; Z79.84 Long term (current) use of oral hypoglycemic drugs; Z79.51 Long term (current) use of inhaled steroids; Z79.899 Other long term (current) drug therapy; Z79.890 Hormone replacement therapy
CPT/HCPCS: 36415; 74176; 80053; 82962; 83036; 85025; 87040; 94002; 94640; 96361; 96365; 96366; 96367; 96372; 96375; 96376; 99221; 99284; J7030; J7040; A4216; G0378; J2405

== ENCOUNTER → 2022-05-12 | Outpatient (CLI) | payer MEDICARE, MEDICAID, SELFPAY ==
[2022-05-12 12:33] LABS: Hematocrit 35.1 % (37-47); Hemoglobin 11.6 g/dL (12.0-15.0); Mean Corpuscular Hgb 39.2 pg (27.0-32.0); Mean Corpuscular Volume 118.6 fL (81-99); Mean Platelet Vol. 9.9 fl (6.2-12.0); POSITIVE MORPHOLOGY YES; Platelet Count 347 K/mm3 (150-450); RBC Distribution Width CV 16.9 % (11.6-14.6); RBC Distribution Width SD 74.3 fl (35.1-43.9); Red Blood Count 2.96 M/mm3 (4.2-5.4); White Blood Count 9.7 K/mm3 (4.4-11.0)
[2022-05-12 12:35] LABS: Scan Indicated on CBC? Y/N YES- FLAGS NOTED
[2022-05-12 12:57] LABS: PTHIN 57.3 pg/mL (18.4-80.1)
[2022-05-12 13:02] LABS: Vitamin B12 303 pg/mL (211-911); Vitamin D,25 Hydroxy 30.2 ng/mL
[2022-05-12 13:10] LABS: Microalbumin,Random Urine 30.8 mg/L (NO RANGE EST.)
[2022-05-12 13:14] LABS: ALB/GLOB Ratio 0.9 RATIO (0.9-2.4); AST(SGOT) 18 U/L (15-37); Alanine Aminotransfer ALT/SGPT 21 U/L (13-56); Albumin, Serum 3.7 g/dL (3.2-5.0); Alkaline Phosphatase 120 U/L (45-117); Anion Gap 10 (5-15); BUN 12 mg/dL (7-18); BUN/Creat Ratio 10.5 RATIO (10-20); Calcium,Total 9.7 mg/dL (8.5-10.1); Chloride 104 mmol/L (98-107); Cholesterol 144 mg/dL (200); Creatinine, Serum 1.14 mg/dL (0.55-1.02); EST Glomerular Filtration Rate 53 mL/min (>60); Est Glom Filt Rate - Afr Amer 64 mL/min (>60); Free T3 1.3 pg/mL (2.18-3.98); Glucose 100 mg/dL (74-106); High Density Lipoprotein 33 mg/dL; Iron 60 ug/dL (50-170); Iron Binding Capacity,Total 362 ug/dL (250-450); Potassium 3.7 mmol/L (3.5-5.1); Protein, Total 7.7 g/dL (6.4-8.2); Sodium Level 139 mmol/L (136-145); T4 Free Direct 0.91 ng/dL (0.76-1.46); Triglycerides 83 mg/dL; Very Low Density Lipoprotein 17 mg/dL (5-40)
[2022-05-12 13:28] LABS: Hemoglobin A1c 5.7 % (3.8-5.6)
[2022-05-13 12:10] LABS: Pathologist Review Reviewed
[2022-05-24 20:09] LABS: Renin, Plasma 0.682 ng/mL/hr (0.167-5.380)
== END | disposition home or self-care (01) ==
LOC: LAB 11:11
PROVIDERS: PCP Nurse Practitioner Family; Referring Provider Nurse Practitioner Family; Visit Provider Nurse Practitioner Family
DX: E11.22 Type 2 diabetes mellitus with diabetic chronic kidney disease (principal); N18.4 Chronic kidney disease, stage 4 (severe); I12.9 Hypertensive chronic kidney disease with stage 1 through stage 4 chronic kidney disease, or unspecified chronic kidney disease; E78.00 Pure hypercholesterolemia, unspecified; E03.9 Hypothyroidism, unspecified
CPT/HCPCS: 36415; 80053; 80061; 82043; 82306; 82607; 83036; 83540; 83550; 83970; 84244; 84439; 84443; 84481; 85027

== ENCOUNTER 2022-05-14 15:47 | Emergency (ER) | payer MEDICARE, MEDICAID, SELFPAY ==
[2022-05-14 15:48] VITALS: BP 197/73; PULSE 81; RESP 16; TEMP 36.6; O2SAT 100; BMI 40.2
--- NOTE | 2022-05-14 17:16 | EX.ED.DYSGE1 ---
HPI History of Present Illness Chief Complaint: Cellulitis Informant: patient Narrative Narrative: Patient present secondary to nausea and cellulitis. Patient was admitted to the hospital May 04 through for umbilical cellulitis. She was treated with Ancef and transition to Keflex at discharge. Patient states that the antibiotics make her too nauseated she cannot take them. She was sent home with Zofran but states this was not helping. She did not call her doctor to get a different nausea medicine. [facility] Medical History Abnormal glucose Anemia Anxiety Arthritis Asthma BiPAP (biphasic positive airway pressure) dependence Cardiac murmur Cardiology follow-up encounter Celiac disease Chest pain Cholelithiasis Chronic kidney disease Constipation COPD (chronic obstructive pulmonary disease) Depression Diabetes Diabetes mellitus Dietary restriction Difficulty swallowing Dyspnea on exertion Easy bruising Essential hypertension Gastric reflux GERD (gastroesophageal reflux disease) Gout History of chronic back pain History of echocardiogram History of edema History of pain when walking History of stress test Hydronephrosis Hyperlipidemia Hypersomnia Hypertension Hypothyroidism Injury of head and neck Iron deficiency anemia Leg cramps Microcytic anemia Migraine headache Morbid obesity with BMI of 40.0-44.9, adult Non-smoker Noncompliance DAVY treated with BiPAP Post-menopausal Restless leg syndrome Seasonal allergies Shortness of breath on exertion Syncope Thyroid disease Ureterolithiasis UTI (urinary tract infection) Vitamin B12 deficiency Vitamin D deficiency Wears glasses Home Medications citalopram 40 mg tablet 40 mg PO DAILY antidepressant/antianxiety 07/27/19 [History Last Taken 05/04/22] megestrol 40 mg tablet 40 mg PO QHS for heavy menses 09/28/19 [History Last Taken 05/03/22] amlodipine 5 mg tablet 5 mg PO DAILY blood pressure 04/02/20 [History Last Taken 05/04/22] budesonide-formoterol HFA 160 mcg-4.5 mcg/actuation aerosol inhaler (Symbicort) 2 puff inhalation BID inhaler 04/02/20 [History Last Taken 05/04/22] empagliflozin 25 mg tablet (Jardiance) 25 mg PO DAILY diabetes 04/02/20 [History Last Taken 01/05/21] loratadine 10 mg tablet 10 mg PO DAILY PRN ALLERGIES 04/02/20 [History Last Taken 01/05/21] ubrogepant 100 mg tablet (Ubrelvy) 100 mg PO DAILY migraines 04/02/20 [History Last Taken 05/04/22] rimegepant 75 mg disintegrating tablet (Nurtec ODT) 75 mg PO ONCE migraines 06/19/20 [History Last Taken 05/04/22] fluticasone fur. 100 mcg-umeclid 62.5 mcg-vilant 25 mcg inhalat.powder (Trelegy Ellipta) 1 ea inhalation DAILY COPD 08/14/20 [History Last Taken 05/04/22] gabapentin 100 mg capsule 100 mg PO TID neuropathy 09/30/20 [History Last Taken 05/04/22] galcanezumab-gnlm 120 mg/mL subcutaneous pen injector (Emgality Pen) 120 mg subcut QMONTH MIGRAINES 08/19/21 [History Last Taken 04/06/22] ondansetron 4 mg disintegrating tablet 4 mg PO Q8H PRN nausea and vomiting #10 tabs 03/03/22 [Rx Last Taken 05/04/22] tizanidine 4 mg tablet 4 mg PO QHS PRN muscle relaxer 03/03/22 [History Last Taken 05/03/22] tramadol 50 mg tablet 50 mg PO BID PRN Pain 03/03/22 [History Last Taken 05/03/22] albuterol sulfate 90 mcg/actuation breath activated powder inhaler (ProAir RespiClick) 2 inh inhalation 4X/DAY PRN Shortness Of Breath 05/04/22 [History Last Taken 05/04/22] atogepant 60 mg tablet (Qulipta) 60 mg PO DAILY MIGRAINES 05/04/22 [History Last Taken 05/04/22] levothyroxine 175 mcg tablet 175 mcg PO DAILY THYROID 05/04/22 [History Last Taken 05/04/22] lorazepam 1 mg tablet 1 mg PO TID PRN Anxiety 05/04/22 [History Last Taken Unknown] omeprazole 40 mg capsule,delayed release 40 mg PO DAILY ACID REFLUX 05/04/22 [History Last Taken 05/04/22] valsartan 320 mg tablet 320 mg PO DAILY BLOOD PRESSURE 05/04/22 [History Last Taken 2 Months Ago ~03/06/22] cephalexin 500 mg capsule 500 mg PO Q8H 5 days #15 caps 05/06/22 [Rx Last Taken Unknown] promethazine 25 mg tablet 25 mg PO Q4H PRN nausea and vomiting #20 tabs 05/14/22 [Rx Last Taken Unknown] Allergy/AdvReac Type Severity Reaction Status Date / Time hydrochlorothiazide AdvReac Intermediate Contributes Verified 05/14/22 15:50 to gout naproxen [From Naprosyn] AdvReac Intermediate Nausea Verified 05/14/22 15:50 aspirin AdvReac Nausea Verified 05/14/22 15:50 Family History Father , Age 72 Hypertension Mother CAD (coronary artery disease) Myocardial infarction, Onset Age: 55 Hypertension Sister CAD (coronary artery disease) Brother Cancer Surgical History History of History of cardiac catheterization History of carpal tunnel surgery of left wrist History of carpal tunnel surgery of right wrist History of left heart catheterization (11/11/20) history of uterine ablation Hx of cystoscopy Social History Smoking Status: Never smoker alcohol intake: never substance use type: does not use caffeine: No ROS ROS ED Constitutional Constitutional ED: Denies chills or fever(s) Eyes Eyes: Denies change in vision or discharge from eye(s) ENT ENT ED: Denies discharge from eye(s), rhinorrhea or sore throat Cardiovascular Cardiovascular: Denies chest pain or palpitations Respiratory/Chest Respiratory/Chest: Denies cough or dyspnea Gastrointestinal Gastrointestinal: Reports abdominal pain and nausea; Denies diarrhea Genitourinary Genitourinary ED: Denies difficulty urinating or dysuria Musculoskeletal Musculoskeletal: Denies back pain or extremity pain Integumentary Denies Abrasions or rash Neurologic Neurologic: Reports weakness; Denies headache(s) Psychiatric Psychiatric: Denies anxiety or depression Allergic/Immunologic Allergic/Immunologic ED: Denies lip swelling or urticaria EXAM Physical Exam Const Vital Signs: 05/14/22 15:48 Temperature 98 F Temperature Source Temporal Pulse Rate 81 Respiratory Rate 16 Blood Pressure 197/73 H Blood Pressure Mean 114 Pulse Ox 100 Oxygen Delivery Method Room Air Positive well nourished and well developed General Appearance ED: well developed HEENT Reports normocephalic and head/scalp atraumatic Eyes PERRL and EOMs intact bilaterally Neck supple Chest Wall inspection of chest normal and palpation of chest normal Resp normal respiratory effort and clear to auscultation bilaterally Cardio regular rate and regular rhythm GI GI Narrative: Erythema at the umbilicus site. Dry serosanguineous drainage. No palpable abscess. No significant surrounding cellulitis. Palpation: soft Back/Spine no CVA tenderness Extremity normal to inspection Neuro oriented x3 and no sensory deficits noted Sensorium / Orientation: alert Motor Exam: strength 5/5 throughout Psych mental status grossly normal Skin no rashes or lesions noted MDM MDM MDM Narrative Medical decision making narrative: Labwork obtained to evaluate for leukocytosis, anemia, and electrolyte derangement. I reviewed the patient's recent hospital stay. History & Record Review Discussion w/independent historian: Patient and Family Additional record(s) reviewed:: Prior inpatient record and Prior ED visit Lab Data Attestation: I reviewed the patient's lab results. Labs: Laboratory Results - last 24 hr 05/14/22 05/14/22 18:55 18:55 WBC 12.7 H RBC 3.20 L Hgb 12.7 Hct 37.1 MCV 115.9 H MCH 39.7 H MCHC 34.2 RDW Std Deviation 69.7 H RDW Coeff of Alfredo 15.9 H Plt Count 320 MPV 10.2 Immature Gran % (Auto) 0.500 Neut % (Auto) 74.4 H Lymph % (Auto) 17.9 L [place] % (Auto) 6.3 Eos % (Auto) 0.4 Baso % (Auto) 0.5 Absolute Neuts (auto) 9.4 H Absolute Lymphs (auto) 2.27 Nucleated RBC % 0 Differential Comment SCANNED Anisocytosis 2+ Sodium 141 Potassium 3.4 L Chloride 108 H Carbon Dioxide 22.0 Anion Gap 11 BUN 10 Creatinine 1.13 H Estim Creat Clear Calc 50.86 Est GFR (MDRD) Af Amer 65 Est GFR (MDRD) Non-Af 54 L BUN/Creatinine Ratio 8.8 L Glucose 95 Calcium 9.9 Radiography Diagnostic Testing: Clinical Impression(s) from Imaging Studies Abdomen/Pelvis CT 05/14/22 19:17 IMPRESSION: 1. Near-complete resolution of the previously noted periumbilical inflammatory changes. 2. Coronary artery disease. 3. Cholelithiasis. 4. Numerous tiny nonobstructing calculi right kidney. 5. Multiple small parapelvic cysts bilateral kidneys. No follow-up imaging necessary. Electronically Signed: Wes Reza MD at 19:53 EDT , Treatment and Re-Evaluation :: CBC does reveal white count 12.7, slightly increased when compared to her recent labs. Chemistry studies are unremarkable. Glucose is 95. Given her elevated white count patient was sent for CT flank. We were unable to establish an IV line, therefore patient was given morphine and Phenergan IM along with some Ativan. CT scan reveals that the prior inflammatory process is resolved. Patient is reassured with this. She was able to tolerate p.o. here. I will write her for Phenergan and she is to continue the Keflex she was previously prescribed. Discharge Plan Triage Chief Complaint: Cellulitis ED Provider: Nannette Stahl Dx/Rx/DC Orders Clinical Impression: Cellulitis Instructions: ED Cellulitis Prescriptions: New promethazine 25 mg tablet 25 mg PO Q4H PRN (Reason: nausea and vomiting) Qty: 20 0RF No Action Jardiance 25 mg tablet 25 mg PO DAILY Ubrelvy 100 mg tablet 100 mg PO DAILY Rx Instructions: as a single dose; may repeat once in >=2 hours after first dose if needed amlodipine 5 mg tablet 5 mg PO DAILY loratadine 10 mg tablet 10 mg PO DAILY PRN (Reason: ALLERGIES) budesonide-formoterol [Symbicort] 160-4.5 mcg/actuation HFA aerosol inhaler 2 puff INHALATION BID Nurtec ODT 75 mg tablet,disintegrating 75 mg PO ONCE gabapentin 100 mg capsule 100 mg PO TID Emgality Pen 120 mg/mL pen injector 120 mg subcut QMONTH tizanidine 4 mg tablet 4 mg PO QHS PRN (Reason: muscle relaxer) tramadol 50 mg tablet 50 mg PO BID PRN (Reason: Pain) megestrol 40 mg tablet 40 mg PO QHS Trelegy Ellipta 100-62.5-25 mcg blister with device 1 ea INHALATION DAILY ondansetron 4 mg tablet,disintegrating 4 mg PO Q8H PRN (Reason: nausea and vomiting) Qty: 10 0RF valsartan 320 mg tablet 320 mg PO DAILY ProAir RespiClick 90 mcg/actuation aerosol powdr breath activated 2 inh INHALATION 4X/DAY PRN (Reason: Shortness Of Breath) levothyroxine 175 mcg tablet 175 mcg PO DAILY omeprazole 40 mg capsule,delayed release(DR/EC) 40 mg PO DAILY lorazepam 1 mg tablet 1 mg PO TID PRN (Reason: Anxiety) Qulipta 60 mg tablet 60 mg PO DAILY cephalexin 500 mg capsule 500 mg PO Q8H 5 Days Qty: 15 0RF citalopram 40 mg tablet 40 mg PO DAILY Primary Care Provider: Casey Lutz NP Referrals: Casey Lutz NP, [employer] [Primary Care Provider] - 1 Week Disposition Disposition: Home, Self Care
[2022-05-14] MEDS: proMETHazine 25 MG/ML Syringe 12.5 MG IM (17:40)
--- NOTE | 2022-05-14 18:35 | NURSING ---
unable to establish iv with 4 nurses with ultrasound even and attempt to start in foot. dr. goldsmith aware. pt aggrevated and asking for pain meds to anyone who walks in room. dr. goldsmith aware. pt c/o however that couldnt take antibiotic at home d/t severe nause however
--- NOTE | 2022-05-14 18:39 | NURSING ---
lab called for straight stick
[2022-05-14] MEDS: Morphine 4 MG/ML Syringe IM (18:44)
--- NOTE | 2022-05-14 18:51 | NURSING ---
pt walked out in hope and yelled down hope when am i gonna get something for pain in here? informed that had just ordered some and that would be in with it. when went in to give it stated, why arent i going to get an iv? i need an iv? only 2 nurses have tried! those were just students. explained that d/t coming in so many times that iv access limited and that pharmacist in charge and trained ultrasound medic could not get it. pt escalating and stated, well i need iv meds, i cant be getting poked 8times. ill just have to go to [facility] then! i need my medicine pt mom trying to calm her down. explained that if just called pcp to get diff nausea med or diff antibiotic that wouldnt be in this situation and would be healed up by now. lab in to draw blood. iv morphine given.
[2022-05-14 19:06] LABS: Absolute Lymphocyte Count 2.27 X10^3/uL (0.83-4.51); Absolute Neutrophil Count 9.4 X10^3/uL (2.0-7.7); Basophil# 0.06 X10^3/uL; Basophil% 0.5 % (0-1); Eosinophil# 0.05 X10^3/uL; Eosinophils% 0.4 % (0-5); Hematocrit 37.1 % (37-47); Hemoglobin 12.7 g/dL (12.0-15.0); Lymphocyte # 2.27 X10^3/ul (0.83-4.51); Lymphocyte % 17.9 % (19-41); Mean Corp Hgb Conc 34.2 g/dL (32-36); Mean Corpuscular Hgb 39.7 pg (27.0-32.0); Mean Corpuscular Volume 115.9 fL (81-99); Mean Platelet Vol. 10.2 fl (6.2-12.0); Monocyte% 6.3 % (0-10); NRBC Flagged by Analyzer 0 % (0-5); Neutrophil # 9.41 X10^3/uL (2.7-7.7); Neutrophil % 74.4 % (47-70); POSITIVE MORPHOLOGY YES; Platelet Count 320 K/mm3 (150-450); RBC Distribution Width CV 15.9 % (11.6-14.6); RBC Distribution Width SD 69.7 fl (35.1-43.9); White Blood Count 12.7 K/mm3 (4.4-11.0)
[2022-05-14 19:07] LABS: Differential Indicated SCAN CRITERIA MET
--- NOTE | 2022-05-14 19:17 | CT_ITS ---
EXAM: CT ABDOMEN AND PELVIS WITHOUT INTRAVENOUS CONTRAST CLINICAL INDICATION: abd cellulitis, increased WBC count TECHNIQUE: Helically acquired images were obtained of the abdomen and pelvis without intravenous contrast. This CT exam was performed using one or more of the following dose reduction techniques: automated exposure control, adjustment of the mA and/or kV according to patient size, and/or use of iterative reconstruction technique. This report was created using [employer] report generation technology. RADIATION DOSE: CTDIvol = 24.15 mGy, DLP = 1224.98 mGy-cm. COMPARISON: 05/04/2022. FINDINGS: LOWER THORAX: Coronary artery calcifications. Lung bases are clear. No cardiomegaly. No significant pericardial effusion. ABDOMEN: LIVER: Unremarkable. Homogeneous. GALLBLADDER AND BILE DUCTS: Cholelithiasis. No gallbladder distention or wall edema. No intra- or extrahepatic biliary ductal dilation. PANCREAS: Unremarkable. No focal cystic mass. SPLEEN: Unremarkable. Normal size without focal cystic or solid mass. ADRENALS: Unremarkable. No nodules. KIDNEYS AND URETERS: Numerous tiny nonobstructing calculi right kidney. Multiple small parapelvic cysts bilateral kidneys. STOMACH AND BOWEL: Unremarkable. No stomach or bowel distention. No focal inflammatory change. PELVIS: APPENDIX: No evidence of acute appendicitis. BLADDER: Unremarkable. REPRODUCTIVE: Unremarkable as visualized. No mass. ABDOMEN and PELVIS: INTRAPERITONEAL SPACE: Unremarkable. No ascites or other fluid collection. No free air. BONES/JOINTS: Unremarkable. No suspicious lytic or blastic abnormality. SOFT TISSUES: Near-complete resolution of the previously noted periumbilical inflammatory changes. No discrete abdominal or pelvic wall hernia. VASCULATURE: See above. LYMPH NODES: Unremarkable. No enlarged lymph nodes. CT/Abdomen/Pelvis without Cont IMPRESSION: 1. Near-complete resolution of the previously noted periumbilical inflammatory changes. 2. Coronary artery disease. 3. Cholelithiasis. 4. Numerous tiny nonobstructing calculi right kidney. 5. Multiple small parapelvic cysts bilateral kidneys. No follow-up imaging necessary. Electronically Signed: Wes Reza MD at 19:53 EDT ,
[2022-05-14 19:20] LABS: Anion Gap 11 (5-15); BUN 10 mg/dL (7-18); BUN/Creat Ratio 8.8 RATIO (10-20); Calcium,Total 9.9 mg/dL (8.5-10.1); Chloride 108 mmol/L (98-107); Creatinine, Serum 1.13 mg/dL (0.55-1.02); EST Glomerular Filtration Rate 54 mL/min (>60); Est Glom Filt Rate - Afr Amer 65 mL/min (>60); Estimated Creatinine Clearance 50.86 ml/min; Glucose 95 mg/dL (74-106); Potassium 3.4 mmol/L (3.5-5.1); Sodium Level 141 mmol/L (136-145)
[2022-05-14 19:26] VITALS: BP 195/108; O2SAT 98
[2022-05-14 19:31] VITALS: BP 186/99; O2SAT 99
[2022-05-14] MEDS: LORazepam 2 MG/ML Syringe IM (19:34)
[2022-05-14 19:50] LABS: Anisocytosis 2+; Differential Comment SCANNED
[2022-05-14] MEDS: proMETHazine 25 MG Tablet 12.5 MG PO (21:01)
== END 2022-05-14 21:06 | disposition home or self-care (01) ==
PROVIDERS: Emergency Provider Emergency Medicine; PCP Nurse Practitioner Family; Visit Provider Emergency Medicine
DX: L03.316 Cellulitis of umbilicus (principal); J44.9 Chronic obstructive pulmonary disease, unspecified; E11.22 Type 2 diabetes mellitus with diabetic chronic kidney disease; I12.9 Hypertensive chronic kidney disease with stage 1 through stage 4 chronic kidney disease, or unspecified chronic kidney disease; N18.9 Chronic kidney disease, unspecified; Z79.84 Long term (current) use of oral hypoglycemic drugs; Z79.899 Other long term (current) drug therapy
CPT/HCPCS: 36415; 74176; 80048; 85025; 96372; 99283; A4216

== ENCOUNTER 2022-05-19 13:49 | Emergency (ER) | payer MEDICARE, MEDICAID, SELFPAY ==
[2022-05-19 13:52] VITALS: BP 185/101; PULSE 80; RESP 14; TEMP 36.6; O2SAT 100
--- NOTE | 2022-05-19 16:01 | ED.RN ---
PT STATES SHE IS HERE ONLY BECAUSE SHE IS HAVING TROUBLE AMBULATING WITH FOOT DUE TO CELLULITIS , HAS TAKEN 2 DOSES OF ATB. SLIGHT REDNESS NOTED AROUND TOES ON RIGHT FOOT.
--- NOTE | 2022-05-19 16:07 | EDS_ITS ---
HPI History of Present Illness Chief Complaint: Shortness of Breath Informant: patient Onset/Context/Timing Onset: Yesterday Context: Gradual Onset Timing: Continuous Quality: Cramping Location: Right foot Worsened by: Ambulation Relieved by: Nothing Narrative Narrative: Patient presents with right foot pain that began yesterday. Patient was seen here 5 days ago. Patient states they attempted to put an IV in her right foot at that time. Patient states that she had no pain until yesterday evening. Patient states it is gradually getting worse. Patient states it is worse with any weightbearing or ambulation. Patient states nothing seems to help with it. Patient describes it as cramping. Patient denies any trauma or injury. Patient denies any fevers but admits to some subjective chills. Patient admits to some nausea but denies any vomiting. Patient states she started taking her antibiotics last night and has had 2 doses of Keflex. [facility] Medical History Abnormal glucose Anemia Anxiety Arthritis Asthma BiPAP (biphasic positive airway pressure) dependence Cardiac murmur Cardiology follow-up encounter Celiac disease Chest pain Cholelithiasis Chronic kidney disease Constipation COPD (chronic obstructive pulmonary disease) Depression Diabetes Diabetes mellitus Dietary restriction Difficulty swallowing Dyspnea on exertion Easy bruising Essential hypertension Gastric reflux GERD (gastroesophageal reflux disease) Gout History of chronic back pain History of echocardiogram History of edema History of pain when walking History of stress test Hydronephrosis Hyperlipidemia Hypersomnia Hypertension Hypothyroidism Injury of head and neck Iron deficiency anemia Leg cramps Microcytic anemia Migraine headache Morbid obesity with BMI of 40.0-44.9, adult Non-smoker Noncompliance DAVY treated with BiPAP Post-menopausal Restless leg syndrome Seasonal allergies Shortness of breath on exertion Syncope Thyroid disease Ureterolithiasis UTI (urinary tract infection) Vitamin B12 deficiency Vitamin D deficiency Wears glasses Home Medications citalopram 40 mg tablet 40 mg PO DAILY antidepressant/antianxiety 07/27/19 [History Last Taken 05/04/22] megestrol 40 mg tablet 40 mg PO QHS for heavy menses 09/28/19 [History Last Taken 05/03/22] amlodipine 5 mg tablet 5 mg PO DAILY blood pressure 04/02/20 [History Last Taken 05/04/22] budesonide-formoterol HFA 160 mcg-4.5 mcg/actuation aerosol inhaler (Symbicort) 2 puff inhalation BID inhaler 04/02/20 [History Last Taken 05/04/22] empagliflozin 25 mg tablet (Jardiance) 25 mg PO DAILY diabetes 04/02/20 [History Last Taken 01/05/21] loratadine 10 mg tablet 10 mg PO DAILY PRN ALLERGIES 04/02/20 [History Last Taken 01/05/21] ubrogepant 100 mg tablet (Ubrelvy) 100 mg PO DAILY migraines 04/02/20 [History Last Taken 05/04/22] rimegepant 75 mg disintegrating tablet (Nurtec ODT) 75 mg PO ONCE migraines 06/19/20 [History Last Taken 05/04/22] fluticasone fur. 100 mcg-umeclid 62.5 mcg-vilant 25 mcg inhalat.powder (Trelegy Ellipta) 1 ea inhalation DAILY COPD 08/14/20 [History Last Taken 05/04/22] gabapentin 100 mg capsule 100 mg PO TID neuropathy 09/30/20 [History Last Taken 05/04/22] galcanezumab-gnlm 120 mg/mL subcutaneous pen injector (Emgality Pen) 120 mg subcut QMONTH MIGRAINES 08/19/21 [History Last Taken 04/06/22] ondansetron 4 mg disintegrating tablet 4 mg PO Q8H PRN nausea and vomiting #10 tabs 03/03/22 [Rx Last Taken 05/04/22] tizanidine 4 mg tablet 4 mg PO QHS PRN muscle relaxer 03/03/22 [History Last Brendan en 05/03/22] albuterol sulfate 90 mcg/actuation breath activated powder inhaler (ProAir RespiClick) 2 inh inhalation 4X/DAY PRN Shortness Of Breath 05/04/22 [History Last Taken 05/04/22] atogepant 60 mg tablet (Qulipta) 60 mg PO DAILY MIGRAINES 05/04/22 [History Last Taken 05/04/22] levothyroxine 175 mcg tablet 175 mcg PO DAILY THYROID 05/04/22 [History Last Taken 05/04/22] lorazepam 1 mg tablet 1 mg PO TID PRN Anxiety 05/04/22 [History Last Taken Unknown] omeprazole 40 mg capsule,delayed release 40 mg PO DAILY ACID REFLUX 05/04/22 [History Last Taken 05/04/22] valsartan 320 mg tablet 320 mg PO DAILY BLOOD PRESSURE 05/04/22 [History Last Taken 2 Months Ago ~03/06/22] cephalexin 500 mg capsule 500 mg PO Q8H 5 days #15 caps 05/06/22 [Rx Last Taken Unknown] promethazine 25 mg tablet 25 mg PO Q4H PRN nausea and vomiting #20 tabs 05/14/22 [Rx Last Taken Unknown] Allergy/AdvReac Type Severity Reaction Status Date / Time hydrochlorothiazide AdvReac Intermediate Contributes Verified 05/19/22 13:52 to gout naproxen [From Naprosyn] AdvReac Intermediate Nausea Verified 05/19/22 13:52 aspirin AdvReac Nausea Verified 05/19/22 13:52 Family History Father , Age 72 Hypertension Mother CAD (coronary artery disease) Myocardial infarction, Onset Age: 55 Hypertension Sister CAD (coronary artery disease) Brother Cancer Surgical History History of History of cardiac catheterization History of carpal tunnel surgery of left wrist History of carpal tunnel surgery of right wrist History of left heart catheterization (11/11/20) history of uterine ablation Hx of cystoscopy Social History Smoking Status: Never smoker alcohol intake: never substance use type: does not use caffeine: No ROS ROS ED Constitutional Constitutional ED: Reports chills and subjective; Denies fever(s) Eyes Eyes: Denies blurry vision or change in vision ENT ENT ED: Denies rhinorrhea or sore throat Cardiovascular Cardiovascular: Denies chest pain or palpitations Respiratory/Chest Respiratory/Chest: Denies cough or dyspnea Gastrointestinal Gastrointestinal: Reports nausea; Denies vomiting Genitourinary Genitourinary ED: Denies dysuria or hematuria Musculoskeletal Musculoskeletal: Reports back pain; Denies neck pain Integumentary Denies abscess or rash Neurologic Neurologic: Denies headache(s) or weakness Allergic/Immunologic Allergic/Immunologic ED: Denies mouth swelling or urticaria EXAM Physical Exam Const Vital Signs: 05/19/22 13:52 Temperature 98 F Temperature Source Temporal Pulse Rate 80 Respiratory Rate 14 Blood Pressure 185/101 H Blood Pressure Mean 129 Pulse Ox 100 Oxygen Delivery Method Room Air Positive well nourished and well developed General Appearance ED: well developed and NAD HEENT Reports moist mucous membranes Neck supple and no JVD Resp normal respiratory effort and clear to auscultation bilaterally Cardio regular rate, regular rhythm and no murmurs GI normal to inspection, nondistended, normoactive bowel sounds and non-tender Palpation: soft Extremity Extremity Narrative: There is mild edema and tenderness over the dorsal aspect of the right foot. There is no erythema or warmth noted. There is no discharge or drainage. There is no fluctuance. Range of motion was limited in all motions of the right foot secondary to pain. Sensation was intact to light touch in all digits. Capillary refill was less than 2 seconds in all digits. Pedal pulses are equal bilaterally. General Extremety ED: Yes edema and tenderness General Extremity: edema Neuro oriented x3, CN's II-XII intact bilaterally and no sensory deficits noted Sensorium / Orientation: alert Motor Exam: strength 5/5 throughout Psych mental status grossly normal Skin no rashes or lesions noted MDM MDM MDM Narrative Medical decision making narrative: Differential diagnosis includes soft tissue swelling, cellulitis, and neuropathic pain. Since the patient had no trauma and did not fall, I do not feel that x-rays are necessary at this time I do not feel fracture is in the differential diagnosis. Since the patient only started her antibiotics yesterday, I do not want to change them at this time. Patient was instructed to continue her antibiotics as previously prescribed. Patient was instructed to ice and elevate the right foot. Patient was given crutches. Patient sees Dr. Lieberman for pain management and is currently taking tramadol. Patient was given 1 dose of [place] here. Patient was instructed to follow-up with her primary care physician in 3 to 5 days for reevaluation. Patient understood and was agreeable with the plan. All questions were answered. Discharge Plan Triage Chief Complaint: Shortness of Breath ED Provider: Anam Cuevas Dx/Rx/DC Orders Clinical Impression: Cellulitis, Diabetes mellitus, Acute pain of right foot Instructions: ED Cellulitis Prescriptions: Discontinued tramadol 50 mg tablet 50 mg PO BID PRN (Reason: Pain) No Action Jardiance 25 mg tablet 25 mg PO DAILY Ubrelvy 100 mg tablet 100 mg PO DAILY Rx Instructions: as a single dose; may repeat once in >=2 hours after first dose if needed amlodipine 5 mg tablet 5 mg PO DAILY loratadine 10 mg tablet 10 mg PO DAILY PRN (Reason: ALLERGIES) budesonide-formoterol [Symbicort] 160-4.5 mcg/actuation HFA aerosol inhaler 2 puff INHALATION BID Nurtec ODT 75 mg tablet,disintegrating 75 mg PO ONCE gabapentin 100 mg capsule 100 mg PO TID Emgality Pen 120 mg/mL pen injector 120 mg subcut QMONTH tizanidine 4 mg tablet 4 mg PO QHS PRN (Reason: muscle relaxer) megestrol 40 mg tablet 40 mg PO QHS Trelegy Ellipta 100-62.5-25 mcg blister with device 1 ea INHALATION DAILY ondansetron 4 mg tablet,disintegrating 4 mg PO Q8H PRN (Reason: nausea and vomiting) Qty: 10 0RF valsartan 320 mg tablet 320 mg PO DAILY ProAir RespiClick 90 mcg/actuation aerosol powdr breath activated 2 inh INHALATION 4X/DAY PRN (Reason: Shortness Of Breath) levothyroxine 175 mcg tablet 175 mcg PO DAILY omeprazole 40 mg capsule,delayed release(DR/EC) 40 mg PO DAILY lorazepam 1 mg tablet 1 mg PO TID PRN (Reason: Anxiety) Qulipta 60 mg tablet 60 mg PO DAILY cephalexin 500 mg capsule 500 mg PO Q8H 5 Days Qty: 15 0RF promethazine 25 mg tablet 25 mg PO Q4H PRN (Reason: nausea and vomiting) Qty: 20 0RF citalopram 40 mg tablet 40 mg PO DAILY Primary Care Provider: Casey Lutz NP Referrals: Casey Lutz [employer], [employer]-[facility] [Primary Care Provider] - 3-5 Days Activity Restrictions/Additional Instructions: Continue your Keflex, which is your antibiotic, as prescribed. Continue your tramadol as prescribed. Disposition Disposition: Home, Self Care
[2022-05-19] MEDS: HYDROcodone Bitartrate/Apap 5/325 Tablet PO (16:29)
== END 2022-05-19 16:33 | disposition home or self-care (01) ==
PROVIDERS: Emergency Provider Emergency Medicine; PCP Nurse Practitioner Family; Visit Provider Emergency Medicine
DX: L03.115 Cellulitis of right lower limb (principal); E11.22 Type 2 diabetes mellitus with diabetic chronic kidney disease; N18.9 Chronic kidney disease, unspecified; M79.671 Pain in right foot; G47.33 Obstructive sleep apnea (adult) (pediatric)
CPT/HCPCS: 99283; A4216

== ENCOUNTER → 2022-06-04 | Outpatient (CLI) | payer MEDICARE, MEDICAID, SELFPAY ==
--- NOTE | 2022-06-04 12:45 | CDU_ITS ---
Reason For Study: DIZZINESS Rt. Velocities/BP Lt. Velocities/BP Prox CCA 113.3/18.8 cm/sec. Prox CCA 69.9/14.6 cm/sec. Mid CCA 58.8/17.1 cm/sec. Mid CCA 65.0/15.8 cm/sec. Dist CCA 62.5/15.8 cm/sec. Dist CCA 50.2/15.8 cm/sec. Prox ICA 71.1/24.4 cm/sec. Prox ICA 63.7/19.5 cm/sec. Mid ICA 71.1/20.8 cm/sec. Mid ICA 73.6/29.3 cm/sec. Dist ICA 83.4/25.7 cm/sec. Dist ICA 82.1/37.9 cm/sec. Rt. ICA/CCA = 83.4/58.8=1.4. Lt. ICA/CCA = 82.1/65.0=1.3. Prox ECA 88.3/26.9 cm/sec. Prox ECA 47.8/9.7 cm/sec. Rt. Vert. 53.9/19.5 cm/sec. Lt. Vert. 34.9/9.4 cm/sec. Right Extracranial There is intimal thickening but no significant atherosclerotic plaque noted in the right common carotid artery. There is heterogeneous, irregular atherosclerotic plaque noted in the right internal carotid artery. There is no significant atherosclerotic plaque noted in the right external carotid artery. Antegrade flow is noted in the right vertebral artery. Left Extracranial There is intimal thickening but no significant atherosclerotic plaque noted in the left common carotid artery. There is heterogeneous, irregular atherosclerotic plaque noted in the left internal carotid artery. The atherosclerotic plaque causes acoustic shadowing. There is no significant atherosclerotic plaque noted in the left external carotid artery. Antegrade flow is noted in the left vertebral artery. Procedure Carotid Duplex 35008. This is a Carotid Duplex examination using B-mode, color flow and specral Doppler. The study was technically difficult. Due to body habitus. Exam performed in department. VL/Carotid Duplex Ultrasound Interpretation Summary Mild (<50%) stenosis right extracranial internal carotid. Mild (<50%) stenosis left extracranial internal carotid. Patent and antegrade vertebrals bilaterally. Ordering Physician: Shemar Colon Referring Physician: Sergey Lutz Performed By: Briseyda Meyer RDCS, RVT
== END | disposition home or self-care (01) ==
LOC: CVS 12:44
PROVIDERS: PCP Nurse Practitioner Family; Referring Provider Nurse Practitioner Family; Visit Provider Nurse Practitioner Family
DX: R42 Dizziness and giddiness (principal); I65.22 Occlusion and stenosis of left carotid artery; I25.10 Atherosclerotic heart disease of native coronary artery without angina pectoris
CPT/HCPCS: 93880

== ENCOUNTER → 2022-06-07 | Outpatient (CLI) | payer MEDICARE, MEDICAID, SELFPAY ==
[2022-06-07 17:44] LABS: Absolute Lymphocyte Count 2.37 X10^3/uL (0.83-4.51); Absolute Neutrophil Count 7.1 X10^3/uL (2.0-7.7); Basophil% 0.9 % (0-1); Eosinophil# 0.16 X10^3/uL; Eosinophils% 1.5 % (0-5); Hematocrit 40.8 % (37-47); Hemoglobin 13.8 g/dL (12.0-15.0); Lymphocyte # 2.37 X10^3/ul (0.83-4.51); Lymphocyte % 22.4 % (19-41); Mean Corp Hgb Conc 33.8 g/dL (32-36); Mean Corpuscular Hgb 40.7 pg (27.0-32.0); Mean Corpuscular Volume 120.4 fL (81-99); Mean Platelet Vol. 9.9 fl (6.2-12.0); Monocyte# 0.73 X10^3/uL; Monocyte% 6.9 % (0-10); NRBC Flagged by Analyzer 0 % (0-5); Neutrophil # 7.12 X10^3/uL (2.7-7.7); Neutrophil % 67.3 % (47-70); POSITIVE MORPHOLOGY YES; Platelet Count 382 K/mm3 (150-450); RBC Distribution Width CV 15.6 % (11.6-14.6); RBC Distribution Width SD 71.1 fl (35.1-43.9); Red Blood Count 3.39 M/mm3 (4.2-5.4); White Blood Count 10.6 K/mm3 (4.4-11.0)
[2022-06-07 18:02] LABS: Differential Indicated SCAN CRITERIA MET
[2022-06-07 18:34] LABS: ALB/GLOB Ratio 0.8 RATIO (0.9-2.4); AST(SGOT) 20 U/L (15-37); Alanine Aminotransfer ALT/SGPT 22 U/L (13-56); Albumin, Serum 4.1 g/dL (3.2-5.0); Alkaline Phosphatase 132 U/L (45-117); Anion Gap 9 (5-15); BUN 9 mg/dL (7-18); BUN/Creat Ratio 6.6 RATIO (10-20); Calcium,Total 9.8 mg/dL (8.5-10.1); Chloride 105 mmol/L (98-107); Creatinine, Serum 1.37 mg/dL (0.55-1.02); EST Glomerular Filtration Rate 43 mL/min (>60); Est Glom Filt Rate - Afr Amer 52 mL/min (>60); Globulin 4.9 g/dL (2.2-4.2); Glucose 96 mg/dL (74-106); Hepatitis C Antibody Non-Reactive (Nonreactive); Potassium 3.4 mmol/L (3.5-5.1); Sodium Level 135 mmol/L (136-145)
[2022-06-07 18:51] LABS: Hemoglobin A1c 5.9 % (3.8-5.6)
[2022-06-07 18:54] LABS: Anisocytosis 2+; Differential Comment SCANNED; Hypochromasia 1+; Macrocytosis 2+
[2022-06-08 09:27] LABS: Cholesterol 279 mg/dL (200); High Density Lipoprotein 35 mg/dL; Iron 58 ug/dL (50-170); Iron Binding Capacity,Total 464 ug/dL (250-450); PERCENT IRON SATURATION 12.5 % (15.0-55.0); T4 Free Direct 0.36 ng/dL (0.76-1.46); Triglycerides 192 mg/dL; Very Low Density Lipoprotein 38 mg/dL (5-40)
== END | disposition home or self-care (01) ==
LOC: POLAB3 16:11
PROVIDERS: PCP Nurse Practitioner Family; Visit Provider Nurse Practitioner Family
DX: I12.9 Hypertensive chronic kidney disease with stage 1 through stage 4 chronic kidney disease, or unspecified chronic kidney disease (principal); E11.22 Type 2 diabetes mellitus with diabetic chronic kidney disease; N18.4 Chronic kidney disease, stage 4 (severe); E55.9 Vitamin D deficiency, unspecified; E78.00 Pure hypercholesterolemia, unspecified; E03.9 Hypothyroidism, unspecified; D63.1 Anemia in chronic kidney disease; D53.9 Nutritional anemia, unspecified; Z13.89 Encounter for screening for other disorder
CPT/HCPCS: 36415; 80053; 80061; 82306; 83036; 83540; 83550; 84439; 84443; 85025; 86803

== ENCOUNTER 2022-07-10 16:59 | Emergency (ER) | payer MEDICARE, MEDICAID, SELFPAY ==
[2022-07-10 17:00] VITALS: BP 192/115; PULSE 69; RESP 18; TEMP 36.1; O2SAT 100
[2022-07-10] MEDS: 0.9% Normal Saline 1,000 ML 999 ML IV (18:47)
[2022-07-10] MEDS: DiphenhydrAMINE 50 MG/ML Syringe 25 MG IV (18:48)
[2022-07-10] MEDS: Metoclopramide 10 MG/2 ML Vial IV (18:49)
[2022-07-10 18:50] VITALS: BMI 45.8
--- NOTE | 2022-07-10 19:02 | CT_ITS ---
EXAM: CT HEAD WITHOUT INTRAVENOUS CONTRAST CLINICAL INDICATION: headache TECHNIQUE: Multiple axial images were obtained of the head without intravenous contrast. This CT exam was performed using one or more of the following dose reduction techniques: automated exposure control, adjustment of the mA and/or kV according to patient size, and/or use of iterative reconstruction technique. RADIATION DOSE: CTDIvol = 44.99 mGy, DLP = 846.73 mGy-cm COMPARISON: 9.8.19 FINDINGS: BRAIN AND EXTRA-AXIAL SPACES: Unremarkable. No intra- or extra-axial hemorrhage. No evidence of acute infarct. No intracranial mass or mass effect. There is preservation of the [place]/white matter interface. Posterior fossa structures are unremarkable. Ventricles are appropriate for age. No hydrocephalus. Basal cisterns are patent. BONES/JOINTS: Unremarkable. No discrete lytic or blastic abnormalities. SINUSES: Unremarkable as visualized. Clear. MASTOID AIR CELLS: Unremarkable. Clear. ORBITS: Visualized globes, extraocular muscles, optic nerves and retrobulbar fat appear unremarkable. CT/Brain/Head without Contrast IMPRESSION: Negative head/brain CT without intravenous contrast. Electronically Signed: Maury Srivastava MD at 19:27 EDT ,
--- NOTE | 2022-07-10 19:12 | EDS_ITS ---
HPI <ROBLES Sheets - Last Filed: 07/10/22 20:21> History of Present Illness Chief Complaint: Headache Narrative Narrative: Patient presenting today with a migraine that she has had for the past 5 to 6 days. She states that she has never had a migraine last this long or be this severe. She does have a history of migraines and takes 4 different medications for them including a monthly injection. She reports photophobia and nausea. She denies any fever, chills, chest pain, shortness of breath, and abdominal pain. PFSH <ROBLES Sheets - Last Filed: 07/10/22 20:21> [facility] Medical History Abnormal glucose Anemia Anxiety Arthritis Asthma BiPAP (biphasic positive airway pressure) dependence Cardiac murmur Cardiology follow-up encounter Celiac disease Chest pain Cholelithiasis Chronic kidney disease Constipation COPD (chronic obstructive pulmonary disease) Depression Diabetes Diabetes mellitus Dietary restriction Difficulty swallowing Dyspnea on exertion Easy bruising Essential hypertension Gastric reflux GERD (gastroesophageal reflux disease) Gout History of chronic back pain History of echocardiogram History of edema History of pain when walking History of stress test Hydronephrosis Hyperlipidemia Hypersomnia Hypertension Hypothyroidism Injury of head and neck Iron deficiency anemia Leg cramps Microcytic anemia Migraine headache Morbid obesity with BMI of 40.0-44.9, adult Non-smoker Noncompliance DAVY treated with BiPAP Post-menopausal Restless leg syndrome Seasonal allergies Shortness of breath on exertion Syncope Thyroid disease Ureterolithiasis UTI (urinary tract infection) Vitamin B12 deficiency Vitamin D deficiency Wears glasses Home Medications citalopram 40 mg tablet 40 mg PO DAILY antidepressant/antianxiety 07/27/19 [History Last Taken 05/04/22] megestrol 40 mg tablet 40 mg PO QHS for heavy menses 09/28/19 [History Last Taken 05/03/22] budesonide-formoterol HFA 160 mcg-4.5 mcg/actuation aerosol inhaler (Symbicort) 2 puff inhalation BID inhaler 04/02/20 [History Last Taken 05/04/22] empagliflozin 25 mg tablet (Jardiance) 25 mg PO DAILY diabetes 04/02/20 [History Last Taken 01/05/21] loratadine 10 mg tablet 10 mg PO DAILY PRN ALLERGIES 04/02/20 [History Last Taken 01/05/21] ubrogepant 100 mg tablet (Ubrelvy) 100 mg PO DAILY migraines 04/02/20 [History Last Taken 05/04/22] rimegepant 75 mg disintegrating tablet (Nurtec ODT) 75 mg PO ONCE migraines 06/19/20 [History Last Taken 05/04/22] fluticasone fur. 100 mcg-umeclid 62.5 mcg-vilant 25 mcg inhalat.powder (Trelegy Ellipta) 1 ea inhalation DAILY COPD 08/14/20 [History Last Taken 05/04/22] gabapentin 100 mg capsule 100 mg PO TID neuropathy 09/30/20 [History Last Taken 05/04/22] galcanezumab-gnlm 120 mg/mL subcutaneous pen injector (Emgality Pen) 120 mg subcut QMONTH MIGRAINES 08/19/21 [History Last Taken 04/06/22] ondansetron 4 mg disintegrating tablet 4 mg PO Q8H PRN nausea and vomiting #10 tabs 03/03/22 [Rx Last Taken 05/04/22] tizanidine 4 mg tablet 4 mg PO QHS PRN muscle relaxer 03/03/22 [History Last Taken 05/03/22] albuterol sulfate 90 mcg/actuation breath activated powder inhaler (ProAir RespiClick) 2 inh inhalation 4X/DAY PRN Shortness Of Breath 05/04/22 [History Last Taken 05/04/22] atogepant 60 mg tablet (Qulipta) 60 mg PO DAILY MIGRAINES 05/04/22 [History Last Taken 05/04/22] levothyroxine 175 mcg tablet 175 mcg PO DAILY THYROID 05/04/22 [History Last Taken 05/04/22] lorazepam 1 mg tablet 1 mg PO TID PRN Anxiety 05/04/22 [History Last Taken Unknown] omeprazole 40 mg capsule,delayed release 40 mg PO DAILY ACID REFLUX 05/04/22 [History Last Taken 05/04/22] promethazine 25 mg tablet 25 mg PO Q4H PRN nausea and vomiting #20 tabs 05/14/22 [Rx Last Taken Unknown] amlodipine 5 mg tablet 2.5 mg PO BID blood pressure 05/27/22 [History Last Taken Unknown] valsartan 320 mg tablet 160 mg PO BID BLOOD PRESSURE #90 tabs 05/27/22 [Rx Last Taken Unknown] Allergy/AdvReac Type Severity Reaction Status Date / Time hydrochlorothiazide AdvReac Intermediate Contributes Verified 07/10/22 17:00 to gout naproxen [From Naprosyn] AdvReac Intermediate Nausea Verified 07/10/22 17:00 aspirin AdvReac Nausea Verified 07/10/22 17:00 Family History Father , Age 72 Hypertension Mother CAD (coronary artery disease) Myocardial infarction, Onset Age: 55 Hypertension Sister CAD (coronary artery disease) Brother Cancer Surgical History History of History of cardiac catheterization History of carpal tunnel surgery of left wrist History of carpal tunnel surgery of right wrist History of left heart catheterization (11/11/20) history of uterine ablation Hx of cystoscopy Social History Smoking Status: Never smoker alcohol intake: never substance use type: does not use caffeine: No ROS <ROBLES Sheets - Last Filed: 07/10/22 20:21> ROS ED Constitutional Constitutional ED: Denies chills or fever(s) Eyes Eyes: Reports photophobia; Denies change in vision Cardiovascular Cardiovascular: Denies chest pain or palpitations Respiratory/Chest Respiratory/Chest: Denies cough or dyspnea Gastrointestinal Gastrointestinal: Reports nausea; Denies abdominal pain or vomiting Musculoskeletal Musculoskeletal: Denies arthralgias or myalgias Integumentary Denies abscess, Abrasions or rash Neurologic Neurologic: Reports headache(s); Denies dizziness or weakness EXAM <ROBLES Sheets - Last Filed: 07/10/22 20:21> Physical Exam Const Vital Signs: 07/10/22 17:00 Temperature 96.9 F L Temperature Source Temporal Pulse Rate 69 Respiratory Rate 18 Blood Pressure 192/115 H Blood Pressure Mean 140 Pulse Ox 100 Oxygen Delivery Method Room Air Positive well developed, obese and no apparent distress General Appearance ED: well developed Nutritional Appearance: obese HEENT Reports normocephalic and head/scalp atraumatic Mouth ED: Yes moist mucous membranes normal Eyes PERRL and EOMs intact bilaterally Neck full ROM and supple Chest Wall inspection of chest normal Resp normal respiratory effort and clear to auscultation bilaterally Cardio regular rate and regular rhythm GI soft to palpation, non-tender, non-distended and no masses Back/Spine normal ROM and normal to inspection Extremity normal to inspection and full ROM Neuro oriented x3, CN's II-XII intact bilaterally, moves all extremities, no focal motor deficits and no sensory deficits noted Sensorium / Orientation: awake and alert Psych mental status grossly normal and thought process normal Skin no rashes or lesions noted and no wounds <Dr. Gm Martinez DO - Last Filed: 07/10/22 22:09> Physical Exam Const Vital Signs: 07/10/22 17:00 Temperature 96.9 F L Temperature Source Temporal Pulse Rate 69 Respiratory Rate 18 Blood Pressure 192/115 H Blood Pressure Mean 140 Pulse Ox 100 Oxygen Delivery Method Room Air MDM <ROBLES Sheets - Last Filed: 07/10/22 20:21> [facility] Narrative Medical decision making narrative: Patient presenting today due to a migraine that she has had for the past 5 to 6 days. She is hypertensive here which is consistent with prior visits. She has never had a headache last this long or been this severe, because of that CT of the head will be obtained to rule out intracranial hemorrhage and other abnormal ity and is negative for any acute findings. She does have chronic kidney disease so I will not be giving her Toradol. She has been given half a liter of IV fluids, Benadryl, Tylenol, and Reglan. On repeat examination she is feeling better and wants to go home. She will be discharged home in stable condition and is comfortable with plan. She is to follow-up with her PCP. Differential: Intracranial hemorrhage, migraine headache Attending note: Patient seen and evaluated with [employer]. I perform my own [id number] evaluation. I agree with the plan of work-up. Worsening persistent migraine symptoms for the past 4 days. She is on for migraine medication with no relief. History of stage IV chronic kidney disease. Exam no photophobia no meningismus no focal deficits. With worsening headache than her typical CT head was obtained shows no acute process. Treated migraine cocktails fluid Reglan Benadryl with improvement of symptoms. Discharged with outpatient follow-up. Radiography Diagnostic Testing: Clinical Impression(s) from Imaging Studies Brain CT 07/10/22 19:02 IMPRESSION: Negative head/brain CT without intravenous contrast. Electronically Signed: Maury Srivastava MD at 19:27 EDT , <Dr. Gm Martinez, DO - Last Filed: 07/10/22 22:09> [facility] Narrative Medical decision making narrative: Patient presenting today due to a migraine that she has had for the past 5 to 6 days. She has never had a headache last this long or been this severe, because of that CT of the head will be obtained to rule out intracranial hemorrhage and other abnormality. She does have chronic kidney disease so I will not be giving her Toradol. She has been given fluids, Benadryl, and Reglan. Differential: Intracranial hemorrhage, migraine headache Attending note: Patient seen and evaluated with [employer]. I perform my own [id number] evaluation. I agree with the plan of work-up. Worsening persistent migraine symptoms for the past 4 days. She is on for migraine medication with no relief. History of stage IV chronic kidney disease. Exam no photophobia no meningismus no focal deficits. With worsening headache than her typical CT head was obtained shows no acute process. Treated migraine cocktails fluid Reglan Benadryl with improvement of symptoms. Discharged with outpatient follow-up. Radiography Diagnostic Testing: Clinical Impression(s) from Imaging Studies Brain CT 07/10/22 19:02 IMPRESSION: Negative head/brain CT without intravenous contrast. Electronically Signed: Maury Srivastava MD at 19:27 EDT , Discharge Plan Triage Chief Complaint: Headache Other Complaint: Back ED Midlevel Provider: Nafisa Valadez ED Provider: Gm Martinez Dx/Rx/DC Orders Clinical Impression: Migraine Instructions: ED, Migraine (Classical) Prescriptions: No Action Jardiance 25 mg tablet 25 mg PO DAILY Ubrelvy 100 mg tablet 100 mg PO DAILY Rx Instructions: as a single dose; may repeat once in >=2 hours after first dose if needed loratadine 10 mg tablet 10 mg PO DAILY PRN (Reason: ALLERGIES) budesonide-formoterol [Symbicort] 160-4.5 mcg/actuation HFA aerosol inhaler 2 puff INHALATION BID Nurtec ODT 75 mg tablet,disintegrating 75 mg PO ONCE gabapentin 100 mg capsule 100 mg PO TID Emgality Pen 120 mg/mL pen injector 120 mg subcut QMONTH tizanidine 4 mg tablet 4 mg PO QHS PRN (Reason: muscle relaxer) amlodipine 5 mg tablet 2.5 mg PO BID valsartan 320 mg tablet 160 mg PO BID Qty: 90 3RF megestrol 40 mg tablet 40 mg PO QHS Trelegy Ellipta 100-62.5-25 mcg blister with device 1 ea INHALATION DAILY ondansetron 4 mg tablet,disintegrating 4 mg PO Q8H PRN (Reason: nausea and vomiting) Qty: 10 0RF ProAir RespiClick 90 mcg/actuation aerosol powdr breath activated 2 inh INHALATION 4X/DAY PRN (Reason: Shortness Of Breath) levothyroxine 175 mcg tablet 175 mcg PO DAILY omeprazole 40 mg capsule,delayed release(DR/EC) 40 mg PO DAILY lorazepam 1 mg tablet 1 mg PO TID PRN (Reason: Anxiety) Qulipta 60 mg tablet 60 mg PO DAILY promethazine 25 mg tablet 25 mg PO Q4H PRN (Reason: nausea and vomiting) Qty: 20 0RF citalopram 40 mg tablet 40 mg PO DAILY Primary Care Provider: Clifton Sanchez Chi Referrals: Clifton Sanchez Chi, MD [Primary Care Provider] - 3-5 Days Activity Restrictions/Additional Instructions: Follow-up with your PCP and return for any worsening of symptoms. Disposition Disposition: Home, Self Care Discharge Date/Time: 07/10/22 20:23
--- NOTE | 2022-07-10 20:19 | ED.RN ---
PT REQUESTED TO HAVE IV REMOVED, DID NOT WANT TO WAIT ON DISCHARGE PAPERWORK OR TYLENOL. AMBULATED OUT OF DEPT WITHOUT DIFFICULTY.
== END 2022-07-10 20:23 | disposition home or self-care (01) ==
PROVIDERS: Emergency Provider Emergency Medicine; PCP Family Medicine Geriatric Medicine; Visit Provider Emergency Medicine
DX: G43.909 Migraine, unspecified, not intractable, without status migrainosus (principal); J44.9 Chronic obstructive pulmonary disease, unspecified; E11.22 Type 2 diabetes mellitus with diabetic chronic kidney disease; E66.01 Morbid (severe) obesity due to excess calories; Z68.42 Body mass index [BMI] 45.0-49.9, adult; I12.9 Hypertensive chronic kidney disease with stage 1 through stage 4 chronic kidney disease, or unspecified chronic kidney disease; N18.9 Chronic kidney disease, unspecified; E78.5 Hyperlipidemia, unspecified; Z79.899 Other long term (current) drug therapy
CPT/HCPCS: 70450; 96361; 96374; 96375; 99283; J7030; A4216

== ENCOUNTER → 2022-08-17 | Outpatient (CLI) | payer MEDICARE, MEDICAID, SELFPAY ==
--- NOTE | 2022-08-17 10:11 | VDLE_ITS ---
Reason For Study: Lt Leg Swelling RIGHT LEFT CFV is compressible, spontaneous, phasic, GSV is normal. competent and demonstrates normal CFV is compressible, spontaneous, phasic, augmentation. competent, and demonstrates normal Procedure augmentation. This is a venous duplex using B-mode, color FV is compressible, spontaneous, phasic, flow and spectral Doppler. competent and demonstrates normal Exam performed in department. augmentation. The exam was diagnostic. POP V is compressible, spontaneous, phasic, A preliminary report was called and/or faxed competent and demonstrates normal to Diann ARBOLEDA / [facility]. augmentation. T/P Trunk is compressible. PTV is compressible. LT PerV is compressible. VL/Venous Duplex US, Unilateral Interpretation Summary Deep veins of the left lower extremity are patent and compressible segmentally. There is no evidence of left lower extremity deep vein thrombosis. The left great saphenous vein helder ears patent and compressible segmentally. Ordering Physician: Diann Dunham Referring Physician: Clifton Sanchez Chi Performed By: Elvin Barraza RVT
== END | disposition home or self-care (01) ==
LOC: CVS 10:09
PROVIDERS: PCP Family Medicine Geriatric Medicine; Referring Provider Physician Assistant Surgical; Visit Provider Physician Assistant Surgical
DX: R22.42 Localized swelling, mass and lump, left lower limb (principal)
CPT/HCPCS: 93971

== ENCOUNTER → 2022-08-18 | Outpatient (CLI) | payer MEDICARE, MEDICAID, SELFPAY ==
--- NOTE | 2022-08-18 12:33 | RAD_ITS ---
INDICATION: ABDOMINAL PAIN, NAUSEA EXAMINATION/TECHNIQUE: X-RAY - XR Abdomen 1 View COMPARISON: FINDINGS: BOWEL GAS PATTERN: Moderate stool ascending and transverse colon. Remainder bowel gas pattern normal.. FREE AIR: Not assessed on a single supine view. ORGANOMEGALY: Not seen. CALCIFICATIONS: No abnormal calcifications observed. LOWER CHEST: No acute pathology. BONES AND SOFT TISSUES: No acute pathology. RAD/Abdomen Single View IMPRESSION: Fecal stasis ascending and transverse colon. Electronically Signed: Manuel Cabello MD, JAIME at 21:04 EDT ,
[2022-08-18 12:50] LABS: Absolute Lymphocyte Count 1.29 X10^3/uL (0.83-4.51); Absolute Neutrophil Count 6.1 X10^3/uL (2.0-7.7); Basophil# 0.08 X10^3/uL; Eosinophil# 0.11 X10^3/uL; Eosinophils% 1.4 % (0-5); Hematocrit 39.3 % (37-47); Hemoglobin 13.1 g/dL (12.0-15.0); Lymphocyte # 1.29 X10^3/ul (0.83-4.51); Lymphocyte % 15.9 % (19-41); Mean Corp Hgb Conc 33.3 g/dL (32-36); Mean Corpuscular Hgb 38.6 pg (27.0-32.0); Mean Corpuscular Volume 115.9 fL (81-99); Mean Platelet Vol. 9.5 fl (6.2-12.0); Monocyte# 0.51 X10^3/uL; Monocyte% 6.3 % (0-10); NRBC Flagged by Analyzer 0 % (0-5); Neutrophil # 6.07 X10^3/uL (2.7-7.7); Neutrophil % 74.9 % (47-70); Platelet Count 358 K/mm3 (150-450); RBC Distribution Width CV 13.3 % (11.6-14.6); RBC Distribution Width SD 57.1 fl (35.1-43.9); Red Blood Count 3.39 M/mm3 (4.2-5.4); White Blood Count 8.1 K/mm3 (4.4-11.0)
[2022-08-18 12:56] LABS: Color, Urine Yellow (Yellow); Glucose, Dipstick Normal (Normal); Ketone-Dipstick Negative (Negative); Leukocyte Esterase-Dipstick 100 /ul (Negative); Nitrite-Dipstick Negative (Negative); Occult Blood-Urine 250 /ul (Negative); Protein-Dipstick 30 mg/dl (Negative); Urine Bilirubin Dipstick Negative (Negative); Urine Clarity Sl. Cloudy (Clear); Urine Urobilinogen Normal (Normal)
[2022-08-18 13:57] LABS: AST(SGOT) 25 U/L (15-37); Alanine Aminotransfer ALT/SGPT 25 U/L (13-56); Albumin, Serum 4.1 g/dL (3.2-5.0); Alkaline Phosphatase 132 U/L (45-117); Anion Gap 8 (5-15); BUN 9 mg/dL (7-18); BUN/Creat Ratio 7.6 RATIO (10-20); Calcium,Total 10.1 mg/dL (8.5-10.1); Chloride 107 mmol/L (98-107); Creatinine, Serum 1.18 mg/dL (0.55-1.02); EST Glomerular Filtration Rate 51 mL/min (>60); Est Glom Filt Rate - Afr Amer 62 mL/min (>60); Globulin 4.2 g/dL (2.2-4.2); Glucose 126 mg/dL (74-106); Protein, Total 8.3 g/dL (6.4-8.2); Sodium Level 138 mmol/L (136-145)
== END | disposition home or self-care (01) ==
LOC: LAB 11:53
PROVIDERS: PCP Family Medicine Geriatric Medicine; Referring Provider Family Medicine Geriatric Medicine; Visit Provider Family Medicine Geriatric Medicine
DX: R10.9 Unspecified abdominal pain (principal); R11.0 Nausea
CPT/HCPCS: 36415; 74018; 80053; 81002; 85025

== ENCOUNTER → 2022-08-23 | Outpatient (CLI) | payer MEDICARE, MEDICAID, SELFPAY | END | disposition home or self-care (01) | LOC: LAB.FUTURE 16:04 | PROVIDERS: PCP Family Medicine Geriatric Medicine; Referring Provider Family Medicine Geriatric Medicine; Visit Provider Family Medicine Geriatric Medicine | DX: N39.0 Urinary tract infection, site not specified (principal) | CPT/HCPCS: 87077; 87086; 87088; 87186 ==

== ENCOUNTER 2022-09-29 10:20 | Emergency (ER) | payer MEDICARE, MEDICAID, SELFPAY ==
[2022-09-29 10:22] VITALS: BP 162/93; PULSE 106; RESP 16; TEMP 36.2; O2SAT 96
[2022-09-29 10:28] VITALS: BMI 43.2
--- NOTE | 2022-09-29 10:48 | EKG12_ITS ---
Test Reason : Blood Pressure : / mmHG Vent. Rate : 084 BPM Atrial Rate : 084 BPM P-R Int : 130 ms QRS Dur : 082 ms QT Int : 360 ms P-R-T Axes : 057 006 032 degrees QTc Int : 425 ms Normal sinus rhythm Normal ECG Confirmed by CHAR GONZALEZ, RADHA ([id number]), news copy editor ZANDER MAYER ([id number]) on 10/01/2022 1:24:31 PM Referred By: ALONSO Confirmed By:TODD PARDO MD
--- NOTE | 2022-09-29 11:24 | EDS_ITS ---
HPI History of Present Illness Chief Complaint: Neuro S/Sx Informant: patient Onset/Context/Timing Onset: Days (2 days ago) Context: Sudden Onset Timing: Continuous Quality: Numbness Location: Right arm and leg Worsened by: Nothing Relieved by: Nothing Narrative Narrative: Patient presents with right-sided numbness that began 2 days ago. Patient states it has been constant. Patient states she feels numb on her entire right side. Patient denies any weakness. Patient states nothing makes it better nothing makes it worse. Patient does admit to a headache. Patient admits to some nausea and shortness of breath. Patient denies any vomiting. Patient denies any cough. Patient denies any fevers but admits to some subjective chills. Patient states she did have some slurred speech but states this has resolved. [facility] Medical History Abnormal glucose Anemia Anxiety Arthritis Asthma BiPAP (biphasic positive airway pressure) dependence Cardiac murmur Cardiology follow-up encounter Celiac disease Chest pain Cholelithiasis Chronic kidney disease Constipation COPD (chronic obstructive pulmonary disease) Depression Diabetes Diabetes mellitus Dietary restriction Difficulty swallowing Dyspnea on exertion Easy bruising Essential hypertension Gastric reflux GERD (gastroesophageal reflux disease) Gout History of chronic back pain History of echocardiogram History of edema History of pain when walking History of stress test Hydronephrosis Hyperlipidemia Hypersomnia Hypertension Hypothyroidism Injury of head and neck Iron deficiency anemia Leg cramps Microcytic anemia Migraine headache Morbid obesity with BMI of 40.0-44.9, adult Non-smoker Noncompliance DAVY treated with BiPAP Post-menopausal Restless leg syndrome Seasonal allergies Shortness of breath on exertion Syncope Thyroid disease Ureterolithiasis UTI (urinary tract infection) Vitamin B12 deficiency Vitamin D deficiency Wears glasses Home Medications citalopram 40 mg tablet 40 mg PO DAILY antidepressant/antianxiety 07/27/19 [History Last Taken 05/04/22] megestrol 40 mg tablet 40 mg PO QHS for heavy menses 09/28/19 [History Last Taken 05/03/22] budesonide-formoterol HFA 160 mcg-4.5 mcg/actuation aerosol inhaler (Symbicort) 2 puff inhalation BID inhaler 04/02/20 [History Last Taken 05/04/22] empagliflozin 25 mg tablet (Jardiance) 25 mg PO DAILY diabetes 04/02/20 [History Last Taken 01/05/21] loratadine 10 mg tablet 10 mg PO DAILY PRN ALLERGIES 04/02/20 [History Last Taken 01/05/21] ubrogepant 100 mg tablet (Ubrelvy) 100 mg PO DAILY migraines 04/02/20 [History Last Taken 05/04/22] rimegepant 75 mg disintegrating tablet (Nurtec ODT) 75 mg PO ONCE migraines 06/19/20 [History Last Taken 05/04/22] fluticasone fur. 100 mcg-umeclid 62.5 mcg-vilant 25 mcg inhalat.powder (Trelegy Ellipta) 1 ea inhalation DAILY COPD 08/14/20 [History Last Taken 05/04/22] gabapentin 100 mg capsule 100 mg PO TID neuropathy 09/30/20 [History Last Taken 05/04/22] galcanezumab-gnlm 120 mg/mL subcutaneous pen injector (Emgality Pen) 120 mg subcut QMONTH MIGRAINES 08/19/21 [History Last Taken 04/06/22] ondansetron 4 mg disintegrating tablet 4 mg PO Q8H PRN nausea and vomiting #10 tabs 03/03/22 [Rx Last Taken 05/04/22] tizanidine 4 mg tablet 4 mg PO QHS PRN muscle relaxer 03/03/22 [History Last Taken 05/03/22] albuterol sulfate 90 mcg/actuation breath activated powder inhaler (ProAir RespiClick) 2 inh inhalation 4X/DAY PRN Shortness Of Breath 05/04/22 [History Last Taken 05/04/22] atogepant 60 mg tablet (Qulipta) 60 mg PO DAILY MIGRAINES 05/04/22 [History Last Taken 05/04/22] levothyroxine 175 mcg tablet 175 mcg PO DAILY THYROID 05/04/22 [History Last Taken 05/04/22] lorazepam 1 mg tablet 1 mg PO TID PRN Anxiety 05/04/22 [History Last Taken Unknown] omeprazole 40 mg capsule,delayed release 40 mg PO DAILY ACID REFLUX 05/04/22 [History Last Taken 05/04/22] promethazine 25 mg tablet 25 mg PO Q4H PRN nausea and vomiting #20 tabs 05/14/22 [Rx Last Taken Unknown] amlodipine 5 mg tablet 2.5 mg PO BID blood pressure 05/27/22 [History Last Taken Unknown] valsartan 320 mg tablet 160 mg (1/2 x 320 mg) PO BID BLOOD PRESSURE #90 tabs 05/27/22 [Rx Last Taken Unknown] sulfamethoxazole 800 mg-trimethoprim 160 mg tablet 1 tab PO BID #6 TABLETS 09/29/22 [Rx Last Taken Unknown] Allergy/AdvReac Type Severity Reaction Status Date / Time hydrochlorothiazide AdvReac Intermediate Contributes Verified 09/29/22 10:23 to gout naproxen [From Naprosyn] AdvReac Intermediate Nausea Verified 09/29/22 10:23 aspirin AdvReac Nausea Verified 09/29/22 10:23 Family History Father , Age 72 Hypertension Mother CAD (coronary artery disease) Myocardial infarction, Onset Age: 55 Hypertension Sister CAD (coronary artery disease) Brother Cancer Surgical History History of History of cardiac catheterization History of carpal tunnel surgery of left wrist History of carpal tunnel surgery of right wrist History of left heart catheterization (11/11/20) history of uterine ablation Hx of cystoscopy Social History Smoking Status: Never smoker alcohol intake: never substance use type: does not use caffeine: No ROS ROS ED Constitutional Constitutional ED: Reports chills and subjective; Denies fever(s) Eyes Eyes: Denies blurry vision or change in vision ENT ENT ED: Denies rhinorrhea or sore throat Cardiovascular Cardiovascular: Denies chest pain or palpitations Respiratory/Chest Respiratory/Chest: Reports dyspnea; Denies cough Gastrointestinal Gastrointestinal: Reports nausea; Denies vomiting Genitourinary Genitourinary ED: Denies dysuria or hematuria Musculoskeletal Musculoskeletal: Denies back pain or neck pain Integumentary Denies abscess or rash Neurologic Neurologic: Reports headache(s) and paresthesias RUE and RLE; Denies weakness Allergic/Immunologic Allergic/Immunologic ED: Denies mouth swelling or urticaria EXAM Physical Exam Const Vital Signs: 09/29/22 10:22 09/29/22 13:54 Temperature 97.1 F L Temperature Source Temporal Pulse Rate 106 H 98 Respiratory Rate 16 18 Blood Pressure 162/93 H 143/100 H Blood Pressure Mean 116 114 Pulse Ox 96 95 Oxygen Delivery Method Room Air Room Air Positive well nourished, well developed and obese General Appearance ED: well developed and NAD Nutritional Appearance: obese HEENT Reports moist mucous membranes Neck supple and no JVD Resp normal respiratory effort and clear to auscultation bilaterally Cardio regular rate, regular rhythm and no murmurs GI normal to inspection, nondistended, normoactive bowel sounds and non-tender Palpation: soft Extremity normal to inspection General Extremety ED: Negative for edema or tenderness General Extremity: Negative for edema Neuro oriented x3 and CN's II-XII intact bilaterally Neuro Narrative: Sensation was decreased to light touch on the right upper and lower extremity. However, patient would tell me that she could not feel anything whenever I touched her right upper and lower extremity without me asking her if she can feel it. Sensorium / Orientation: alert Motor Exam: strength 5/5 throughout Psych mental status grossly normal Skin no rashes or lesions noted MDM MDM MDM Narrative Medical decision making narrative: Differential diagnosis includes stroke, anxiety, conversion disorder, electrolyte abnormality, anemia, and urinary tract infection. CT scan of the brain will be obtained to assess for stroke and intracranial bleeding. EKG will be obtained to assess for cardiac dysrhythmia and cardiac ischemia. CBC will be obtained to assess for anemia and leukocytosis. Basic metabolic profile will be obtained to assess for electrolyte abnormality and renal function. PT with INR and PTT will be obtained to assess for coagulopathy. Urinalysis will be obtained to assess for urinary tract infection. Lab Data Attestation: I reviewed the patient's lab results. Lab results narrative: CBC was reviewed. There is a leukocytosis of 20.3. Hemoglobin was 14.3 hematocrit was 44.2. Platelets were elevated at 499. Basic metabolic profile was reviewed. BUN was 31 and creatinine was 1.16. These are consistent with prior results. PT with INR and PTT were reviewed and were within normal limits. Urinalysis was reviewed. There is a leukocyte esterase of 100 with positive nitrates and 10-25 white blood cells. Labs: Laboratory Results - last 24 hr 09/29/22 09/29/22 09/29/22 11:40 11:40 12:40 WBC Cancelled 20.3 H Corrected WBC Cancelled RBC Cancelled 4.04 L Hgb Cancelled 14.3 Hct Cancelled 44.2 MCV Cancelled 109.4 H MCH Cancelled 35.4 H MCHC Cancelled 32.4 RDW Std Deviation Cancelled 59.4 H RDW Coeff of Alfredo Cancelled 14.6 Plt Count Cancelled 499 H MPV Cancelled 9.3 Immature Gran % (Auto) Cancelled 2.000 H Neut % (Auto) Cancelled 76.1 H Lymph % (Auto) Cancelled 14.4 L [place] % (Auto) Cancelled 6.4 Eos % (Auto) Cancelled 0.7 Baso % (Auto) Cancelled 0.4 Absolute Neuts (auto) Cancelled 15.5 H Absolute Lymphs (auto) Cancelled 2.92 Total Counted Cancelled Neutrophils % (Manual) Cancelled Band Neutrophils % Cancelled Lymphocytes % (Manual) Cancelled Monocytes % (Manual) Cancelled Eosinophils % (Manual) Cancelled Basophils % (Manual) Cancelled Metamyelocytes % Cancelled Myelocytes % Cancelled Promyelocytes % Cancelled Blast Cells % Cancelled Plasma Cell % (Manual) Cancelled Other Cells % Cancelled Nucleated RBC % Cancelled 0 Nucleated RBCs/100 WBC Cancelled Differential Comment Cancelled Diff Path Review Cancelled Hypersegmented Neuts Cancelled Atypical Lymphocytes Cancelled Reactive Lymphocytes Cancelled Smudge Cells Cancelled Toxic Granulation Cancelled Toxic Vacuolation Cancelled Dohle Bodies Cancelled Raisa Rods Cancelled Platelet Estimate Cancelled Plt Morphology Comment Cancelled RBC Morphology Cancelled Cancelled Polychromasia Cancelled Hypochromasia Cancelled Poikilocytosis Cancelled Basophilic Stippling Cancelled Anisocytosis Cancelled Microcytosis Cancelled Macrocytosis Cancelled Spherocytes Cancelled Sickle Cells Cancelled Target Cells Cancelled Tear Drop Cells Cancelled Ovalocytes Cancelled Stomatocytes Cancelled [place] Bodies Cancelled Gissel Cells Cancelled Bite Cells Cancelled Crenated Cell Cancelled Acanthocytes (Spur) Cancelled Rouleaux Cancelled Schistocytes Cancelled PT 13.3 INR 1.0 APTT 24.6 Sodium Cancelled 138 Potassium Cancelled 3.9 Chloride Cancelled 106 Carbon Dioxide Cancelled 27.0 Anion Gap Cancelled 5 BUN Cancelled 31 H Creatinine Cancelled 1.16 H Estim Creat Clear Calc Cancelled 53.11 Est GFR (MDRD) Af Amer Cancelled 63 Est GFR (MDRD) Non-Af Cancelled 52 L BUN/Creatinine Ratio Cancelled 26.7 H Glucose Cancelled 94 Calcium Cancelled 9.4 Urine Color Urine Clarity Urine pH Ur Specific [place] Urine Protein Urine Glucose (UA) Urine Ketones Urine Occult Blood Urine Nitrite Urine Bilirubin Urine Urobilinogen Ur Leukocyte Esterase Urine RBC Urine WBC Ur Squamous Epith Cells Urine Bacteria Urine Mucus 09/29/22 13:01 WBC Corrected WBC RBC Hgb Hct MCV MCH MCHC RDW Std Deviation RDW Coeff of Alfredo Plt Count MPV Immature Gran % (Auto) Neut % (Auto) Lymph % (Auto) [place] % (Auto) Eos % (Auto) Baso % (Auto) Absolute Neuts (auto) Absolute Lymphs (auto) Total Counted Neutrophils % (Manual) Band Neutrophils % Lymphocytes % (Manual) Monocytes % (Manual) Eosinophils % (Manual) Basophils % (Manual) Metamyelocytes % Myelocytes % Promyelocytes % Blast Cells % Plasma Cell % (Manual) Other Cells % Nucleated RBC % Nucleated RBCs/100 WBC Differential Comment Diff Path Review Hypersegmented Neuts Atypical Lymphocytes Reactive Lymphocytes Smudge Cells Toxic Granulation Toxic Vacuolation Dohle Bodies Raisa Rods Platelet Estimate Plt Morphology Comment RBC Morphology Polychromasia Hypochromasia Poikilocytosis Basophilic Stippling Anisocytosis Microcytosis Macrocytosis Spherocytes Sickle Cells Target Cells Tear Drop Cells Ovalocytes Stomatocytes [place]ero[place] Bodies [place] Cells Bite Cells Crenated Cell Acanthocytes (Spur) Rouleaux Schistocytes PT INR APTT Sodium Potassium Chloride Carbon Dioxide Anion Gap BUN Creatinine Estim Creat Clear Calc Est GFR (MDRD) Af Amer Est GFR (MDRD) Non-Af BUN/Creatinine Ratio Glucose Calcium Urine Color Yellow Urine Clarity Clear Urine pH 6.0 Ur Specific [place] 1.020 Urine Protein 15 H Urine Glucose (UA) Normal Urine Ketones Negative Urine Occult Blood Negative Urine Nitrite Positive H Urine Bilirubin Negative Urine Urobilinogen Normal Ur Leukocyte Esterase 100 H Urine RBC 0 SEEN Urine WBC 10-25 SEEN Ur Squamous Epith Cells 0-5 SEEN Urine Bacteria 1+ Urine Mucus 0 SEEN Radiography Diagnostic Testing: Clinical Impression(s) from Imaging Studies Brain CT 09/29/22 12:18 IMPRESSION: Normal unenhanced CT scan of the brain. Electronically Signed: Seun Vieira MD at 12:43 EDT , CT scan of the brain was obtained. There is no acute intracranial abnormality. This was interpreted by the radiologist and was also independently reviewed by myself. EKG Initial EKG: Attestation: I personally reviewed and interpreted this EKG as follows: Interpretation: Sinus Rhythm (84) and No Acute Injury Pattern Comments: EKG was obtained. On my independent interpretation, it showed a normal sinus rhythm with a rate of 84. TN interval, QRS interval, and QTc intervals were all normal. Peggs was normal. There are no acute ST or T wave changes. Prior EKG tracings: available for review Prior: Unchanged (02/11/2022) Treatment and Re-Evaluation :: Patient was advised of her findings. Urine culture was ordered. Patient was given a prescription for a short course of Bactrim. Patient was instructed to follow-up with her primary care physician in 5 to 7 days. Patient understood and was agreeable with plan. All questions were answered. Discharge Plan Triage Chief Complaint: Neuro S/Sx ED Provider: Anam Cuevas Dx/Rx/DC Orders Clinical Impression: Paresthesias, Urinary tract infection Instructions: ED Paraesthesias Prescriptions: New sulfamethoxazole-trimethoprim [sulfamethoxazole-trimethoprim] 800-160 mg tablet 1 tab PO BID Qty: 6 0RF No Action Jardiance 25 mg tablet 25 mg PO DAILY Ubrelvy 100 mg tablet 100 mg PO DAILY Rx Instructions: as a single dose; may repeat once in >=2 hours after first dose if needed loratadine 10 mg tablet 10 mg PO DAILY PRN (Reason: ALLERGIES) budesonide-formoterol [Symbicort] 160-4.5 mcg/actuation HFA aerosol inhaler 2 puff INHALATION BID Nurtec ODT 75 mg tablet,disintegrating 75 mg PO ONCE gabapentin 100 mg capsule 100 mg PO TID Emgality Pen 120 mg/mL pen injector 120 mg subcut QMONTH tizanidine 4 mg tablet 4 mg PO QHS PRN (Reason: muscle relaxer) amlodipine 5 mg tablet 2.5 mg PO BID valsartan 320 mg tablet 160 mg PO BID Qty: 90 3RF megestrol 40 mg tablet 40 mg PO QHS Trelegy Ellipta 100-62.5-25 mcg blister with device 1 ea INHALATION DAILY ondansetron 4 mg tablet,disintegrating 4 mg PO Q8H PRN (Reason: nausea and vomiting) Qty: 10 0RF ProAir RespiClick 90 mcg/actuation aerosol powdr breath activated 2 inh INHALATION 4X/DAY PRN (Reason: Shortness Of Breath) levothyroxine 175 mcg tablet 175 mcg PO DAILY omeprazole 40 mg capsule,delayed release(DR/EC) 40 mg PO DAILY lorazepam 1 mg tablet 1 mg PO TID PRN (Reason: Anxiety) Qulipta 60 mg tablet 60 mg PO DAILY promethazine 25 mg tablet 25 mg PO Q4H PRN (Reason: nausea and vomiting) Qty: 20 0RF citalopram 40 mg tablet 40 mg PO DAILY Primary Care Provider: Clifton Sanchez Chi Referrals: Clifton Sanchez Chi, MD [Primary Care Provider] - 3-5 Days Disposition Disposition: Home, Self Care Discharge Date/Time: 09/29/22 15:16
--- NOTE | 2022-09-29 12:18 | CT_ITS ---
STUDY: CT BRAIN WITHOUT CONTRAST REASON FOR EXAM: Female, 52 years old. Stroke RADIATION DOSAGE (If Supplied By Facility): CTDIvol = ( 44.99 ) mGy, DLP = ( 846.73 ) mGycm TECHNIQUE: Transaxial CT imaging of the brain was performed without administration of intravenous contrast material. Individualized dose optimization techniques were used for this CT. COMPARISON: Comparison is made with prior study dated July 10, 2022. FINDINGS: Normal soft tissue structures. Normal calvarium. Normal size ventricles and extra-axial spaces for the patient''s age. Normal white matter tracts of the cerebral hemispheres. Normal basal ganglia and thalami. Normal brainstem. Normal cerebellum. There is no intracranial hemorrhage. There are no findings of an acute ischemic infarction. Normal visualized paranasal sinuses. CT/Brain/Head without Contrast IMPRESSION: Normal unenhanced CT scan of the brain. Electronically Signed: Seun Vieira MD at 12:43 EDT ,
[2022-09-29 12:56] LABS: Absolute Lymphocyte Count 2.92 X10^3/uL (0.83-4.51); Absolute Neutrophil Count 15.5 X10^3/uL (2.0-7.7); Basophil# 0.08 X10^3/uL; Basophil% 0.4 % (0-1); Eosinophil# 0.14 X10^3/uL; Eosinophils% 0.7 % (0-5); Hematocrit 44.2 % (37-47); Hemoglobin 14.3 g/dL (12.0-15.0); Lymphocyte # 2.92 X10^3/ul (0.83-4.51); Lymphocyte % 14.4 % (19-41); Mean Corp Hgb Conc 32.4 g/dL (32-36); Mean Corpuscular Hgb 35.4 pg (27.0-32.0); Mean Corpuscular Volume 109.4 fL (81-99); Mean Platelet Vol. 9.3 fl (6.2-12.0); Monocyte# 1.29 X10^3/uL; Monocyte% 6.4 % (0-10); NRBC Flagged by Analyzer 0 % (0-5); Neutrophil # 15.46 X10^3/uL (2.7-7.7); Neutrophil % 76.1 % (47-70); Platelet Count 499 K/mm3 (150-450); RBC Distribution Width CV 14.6 % (11.6-14.6); RBC Distribution Width SD 59.4 fl (35.1-43.9); Red Blood Count 4.04 M/mm3 (4.2-5.4); White Blood Count 20.3 K/mm3 (4.4-11.0)
[2022-09-29 12:58] LABS: Prothrombin Time (Protime)PT. 13.3 SECONDS (11.7-14.9)
[2022-09-29 12:59] LABS: Partial Thromboplast Time 24.6 Seconds (24.1-36.2)
[2022-09-29 13:03] LABS: Anion Gap 5 (5-15); BUN 31 mg/dL (7-18); BUN/Creat Ratio 26.7 RATIO (10-20); Calcium,Total 9.4 mg/dL (8.5-10.1); Chloride 106 mmol/L (98-107); Creatinine, Serum 1.16 mg/dL (0.55-1.02); EST Glomerular Filtration Rate 52 mL/min (>60); Est Glom Filt Rate - Afr Amer 63 mL/min (>60); Estimated Creatinine Clearance 53.11 ml/min; Glucose 94 mg/dL (74-106); Potassium 3.9 mmol/L (3.5-5.1); Sodium Level 138 mmol/L (136-145)
[2022-09-29 13:13] LABS: Mucous, Urine 0 SEEN /hpf (<or=2+); Red Blood Cells-Urine 0 SEEN /hpf (0-5)
[2022-09-29 13:42] LABS: Color, Urine Yellow (Yellow); Glucose, Dipstick Normal (Normal); Ketone-Dipstick Negative (Negative); Leukocyte Esterase-Dipstick 100 /ul (Negative); Nitrite-Dipstick Positive (Negative); Occult Blood-Urine Negative /ul (Negative); Protein-Dipstick 15 mg/dl (Negative); Urine Bilirubin Dipstick Negative (Negative); Urine Clarity Clear (Clear); Urine Urobilinogen Normal (Normal)
[2022-09-29] MEDS: Acetaminophen 500 MG Tablet 1000 MG PO (13:52)
[2022-09-29 13:54] VITALS: BP 143/100; PULSE 98; RESP 18; O2SAT 95
[2022-09-29 13:54] LABS: Bacteria 1+ /hpf (None Seen); Squamous Epithelial Cells - UA 0-5 SEEN /hpf (5-10); White Blood Cells 10-25 SEEN /hpf (0-5)
[2022-09-29 13:56] VITALS: BMI 45.7
--- NOTE | 2022-09-29 14:58 | ED.RN ---
PT STATES I AM NOT WAITING ANY LONGER FOR MY PAPERWORK, I ALREADY PULLED MY IV OUT, AND I DON'T FEEL ANY DIFFERENT.
--- NOTE | 2022-09-29 17:15 | ED.RN ---
THIS RN SPOKE WITH PT REGARDING PRESCRIPTION BEING SENT TO [facility] FOR UTI. PT VERBALIZED UNDERSTANDING
== END 2022-09-29 15:16 | disposition home or self-care (01) ==
PROVIDERS: Emergency Provider Emergency Medicine; PCP Family Medicine Geriatric Medicine; Visit Provider Emergency Medicine
DX: R20.2 Paresthesia of skin (principal); J44.9 Chronic obstructive pulmonary disease, unspecified; E11.22 Type 2 diabetes mellitus with diabetic chronic kidney disease; E66.01 Morbid (severe) obesity due to excess calories; Z68.41 Body mass index [BMI] 40.0-44.9, adult; N39.0 Urinary tract infection, site not specified; E78.5 Hyperlipidemia, unspecified; I12.9 Hypertensive chronic kidney disease with stage 1 through stage 4 chronic kidney disease, or unspecified chronic kidney disease; N18.9 Chronic kidney disease, unspecified; Z79.84 Long term (current) use of oral hypoglycemic drugs; Z79.899 Other long term (current) drug therapy
CPT/HCPCS: 70450; 80048; 81001; 85025; 85610; 85730; 87077; 87086; 87088; 87186; 93005; 99284; A4216

== ENCOUNTER 2022-10-11 18:54 | Observation (INO) | payer MEDICARE, MEDICAID, SELFPAY ==
[2022-10-11 18:55] VITALS: BP 162/102; PULSE 106; RESP 18; TEMP 36.1; O2SAT 100; BMI 46.7
--- NOTE | 2022-10-11 19:11 | CT_ITS ---
We are attempting to reach an attending provider to discuss findings. An addendum with communication details will be sent when the communication is complete. EXAM: CT ANGIOGRAPHY HEAD AND NECK WITH INTRAVENOUS CONTRAST CLINICAL INDICATION: Neuro deficit, acute, stroke suspected TECHNIQUE: [place] of Ac/head and neck CT angiography protocol performed with intravenous contrast. This CT exam was performed using one or more of the following dose reduction techniques: automated exposure control, adjustment of the mA and/or kV according to patient size, and/or use of iterative reconstruction technique. MIP reconstructed images were created and reviewed. CONTRAST: IV 100mL [id number] COMPARISON: No relevant prior studies available. FINDINGS: HEAD: RIGHT ANTERIOR CEREBRAL ARTERY: Unremarkable. No significant stenosis at the visualized segments. Anterior communicating artery is present. No aneurysm. RIGHT MIDDLE CEREBRAL ARTERY: Unremarkable. No significant stenosis at the visualized segments. No aneurysm. RIGHT POSTERIOR CEREBRAL ARTERY: Unremarkable. No occlusion or significant stenosis. No aneurysm. RIGHT INTRACRANIAL INTERNAL CAROTID ARTERY: Unremarkable. No significant stenosis. No dissection or occlusion. RIGHT INTRACRANIAL VERTEBRAL ARTERY: Unremarkable. No significant stenosis. No dissection or occlusion. LEFT ANTERIOR CEREBRAL ARTERY: Unremarkable. No significant stenosis at the visualized segments. No aneurysm. LEFT MIDDLE CEREBRAL ARTERY: Unremarkable. No significant stenosis at the visualized segments. No aneurysm. LEFT POSTERIOR CEREBRAL ARTERY: There is a origin left posterior cerebral artery. No occlusion or significant stenosis. No aneurysm. LEFT INTRACRANIAL INTERNAL CAROTID ARTERY: Unremarkable. No significant stenosis. No dissection or occlusion. LEFT INTRACRANIAL VERTEBRAL ARTERY: Unremarkable. No significant stenosis. No dissection or occlusion. BASILAR ARTERY: Unremarkable. No significant stenosis. No aneurysm. OTHER VASCULATURE: Right vertebral artery is the dominant vessel and is larger in caliber than the left. No vascular malformation. NECK: RIGHT COMMON CAROTID ARTERY: Unremarkable. No significant stenosis. No dissection or occlusion. RIGHT EXTRACRANIAL INTERNAL CAROTID ARTERY: Unremarkable. No significant stenosis. No dissection or occlusion. RIGHT EXTERNAL CAROTID ARTERY: Unremarkable. No occlusion. RIGHT EXTRACRANIAL VERTEBRAL ARTERY: Unremarkable. No significant stenosis. No dissection or occlusion. LEFT COMMON CAROTID ARTERY: Unremarkable. No significant stenosis. No dissection or occlusion. LEFT EXTRACRANIAL INTERNAL CAROTID ARTERY: Unremarkable. No significant stenosis. No dissection or occlusion. LEFT EXTERNAL CAROTID ARTERY: Unremarkable. No occlusion. LEFT EXTRACRANIAL VERTEBRAL ARTERY: Unremarkable. No significant stenosis. No dissection or occlusion. BRACHIOCEPHALIC AND SUBCLAVIAN ARTERIES: Unremarkable as visualized. No occlusion or significant stenosis. LUNG APICES: Unremarkable as visualized. HEAD and NECK: BONES/JOINTS: Unremarkable. No discrete lytic or blastic abnormalities. SOFT TISSUES: Unremarkable. CAROTID STENOSIS REFERENCE USING NASCET CRITERIA: % ICA stenosis = (1 - narrowest ICA diameter/diameter of distal cervical ICA) x 100. Mild - <50% stenosis. Moderate - 50-69% stenosis. Severe - 70-94% stenosis. Near occlusion - 95-99% stenosis. Occluded - 100% stenosis. CT/STROKE CTA Head AND Neck W/Con IMPRESSION: No acute findings in the arteries of the head and neck. Electronically Signed: Solomon Corona MD at 21:20 EDT ,
--- NOTE | 2022-10-11 19:11 | EKG12_ITS ---
Test Reason : NEURO Blood Pressure : / mmHG Vent. Rate : 094 BPM Atrial Rate : 094 BPM P-R Int : 142 ms QRS Dur : 080 ms QT Int : 350 ms P-R-T Axes : 045 003 021 degrees QTc Int : 437 ms Normal sinus rhythm Normal ECG Confirmed by CLIF ESQUEDA ([id number]), editorial manager SONJA ZABALA ([id number]) on 10/16/2022 9:36:56 AM Referred By: Confirmed By:CLIF ESQUEDA
--- NOTE | 2022-10-11 19:12 | ED.VIS.STROK ---
HPI History of Present Illness Chief Complaint: Neuro S/Sx Detail of Chief Complaint: Numbness to entire right side Informant: patient Narrative Narrative: Patient presents to the emergency department complaining of numbness to her right side that started a week ago. 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 Denies falls or head injuries. No prior history of stroke. Patient not anticoagulated. She denies vision changes and difficulty with speech. [facility] Medical History Abnormal glucose Anemia Anxiety Arthritis Asthma BiPAP (biphasic positive airway pressure) dependence Cardiac murmur Cardiology follow-up encounter Celiac disease Chest pain Cholelithiasis Chronic kidney disease Constipation COPD (chronic obstructive pulmonary disease) Depression Diabetes Diabetes mellitus Dietary restriction Difficulty swallowing Dyspnea on exertion Easy bruising Essential hypertension Gastric reflux GERD (gastroesophageal reflux disease) Gout History of chronic back pain History of echocardiogram History of edema History of pain when walking History of stress test Hydronephrosis Hyperlipidemia Hypersomnia Hypertension Hypothyroidism Injury of head and neck Iron deficiency anemia Leg cramps Microcytic anemia Migraine headache Morbid obesity with BMI of 40.0-44.9, adult Non-smoker Noncompliance DAVY treated with BiPAP Post-menopausal Restless leg syndrome Seasonal allergies Shortness of breath on exertion Syncope Thyroid disease Ureterolithiasis UTI (urinary tract infection) Vitamin B12 deficiency Vitamin D deficiency Wears glasses Home Medications citalopram 40 mg tablet 40 mg PO DAILY antidepressant/antianxiety 07/27/19 [History Last Taken 05/04/22] megestrol 40 mg tablet 40 mg PO QHS for heavy menses 09/28/19 [History Last Taken 05/03/22] budesonide-formoterol HFA 160 mcg-4.5 mcg/actuation aerosol inhaler (Symbicort) 2 puff inhalation BID inhaler 04/02/20 [History Last Taken 05/04/22] empagliflozin 25 mg tablet (Jardiance) 25 mg PO DAILY diabetes 04/02/20 [History Last Taken 01/05/21] loratadine 10 mg tablet 10 mg PO DAILY PRN ALLERGIES 04/02/20 [History Last Taken 01/05/21] ubrogepant 100 mg tablet (Ubrelvy) 100 mg PO DAILY migraines 04/02/20 [History Last Taken 05/04/22] rimegepant 75 mg disintegrating tablet (Nurtec ODT) 75 mg PO ONCE migraines 06/19/20 [History Last Taken 05/04/22] fluticasone fur. 100 mcg-umeclid 62.5 mcg-vilant 25 mcg inhalat.powder (Trelegy Ellipta) 1 ea inhalation DAILY COPD 08/14/20 [History Last Taken 05/04/22] gabapentin 100 mg capsule 100 mg PO TID neuropathy 09/30/20 [History Last Taken 05/04/22] galcanezumab-gnlm 120 mg/mL subcutaneous pen injector (Emgality Pen) 120 mg subcut QMONTH MIGRAINES 08/19/21 [History Last Taken 04/06/22] ondansetron 4 mg disintegrating tablet 4 mg PO Q8H PRN nausea and vomiting #10 tabs 03/03/22 [Rx Last Taken 05/04/22] tizanidine 4 mg tablet 4 mg PO QHS PRN muscle relaxer 03/03/22 [History Last Taken 05/03/22] albuterol sulfate 90 mcg/actuation breath activated powder inhaler (ProAir RespiClick) 2 inh inhalation 4X/DAY PRN Shortness Of Breath 05/04/22 [History Last Taken 05/04/22] atogepant 60 mg tablet (Qulipta) 60 mg PO DAILY MIGRAINES 05/04/22 [History Last Taken 05/04/22] levothyroxine 175 mcg tablet 175 mcg PO DAILY THYROID 05/04/22 [History Last Taken 05/04/22] lorazepam 1 mg tablet 1 mg PO TID PRN Anxiety 05/04/22 [History Last Taken Unknown] omeprazole 40 mg capsule,delayed release 40 mg PO DAILY ACID REFLUX 05/04/22 [History Last Taken 05/04/22] promethazine 25 mg tablet 25 mg PO Q4H PRN nausea and vomiting #20 tabs 05/14/22 [Rx Last Taken Unknown] amlodipine 5 mg tablet 2.5 mg PO BID blood pressure 05/27/22 [History Last Taken Unknown] valsartan 320 mg tablet 160 mg (1/2 x 320 mg) PO BID BLOOD PRESSURE #90 tabs 05/27/22 [Rx Last Taken Unknown] sulfamethoxazole 800 mg-trimethoprim 160 mg tablet 1 tab PO BID #6 TABLETS 09/29/22 [Rx Last Taken Unknown] Allergy/AdvReac Type Severity Reaction Status Date / Time hydrochlorothiazide AdvReac Intermediate Contributes Verified 10/11/22 18:55 to gout naproxen [From Naprosyn] AdvReac Intermediate Nausea Verified 10/11/22 18:55 aspirin AdvReac Nausea Verified 10/11/22 18:55 Family History Father , Age 72 Hypertension Mother CAD (coronary artery disease) Myocardial infarction, Onset Age: 55 Hypertension Sister CAD (coronary artery disease) Brother Cancer Surgical History History of History of cardiac catheterization History of carpal tunnel surgery of left wrist History of carpal tunnel surgery of right wrist History of left heart catheterization (11/11/20) history of uterine ablation Hx of cystoscopy Social History Smoking Status: Never smoker alcohol intake: never substance use type: does not use caffeine: No ROS ROS ED Review of Systems ROS Unobtainable: other Constitutional Constitutional ED: Reports lethargy; Denies chills, fever(s), sweats or weight loss Eyes Eyes: Denies blurry vision, change in vision or diplopia ENT ENT ED: Denies rhinorrhea or sore throat Cardiovascular Cardiovascular: Denies chest pain, orthopnea or racing heartbeat Respiratory/Chest Respiratory/Chest: Denies cough, dyspnea, dyspnea on exertion, orthopnea or sputum Gastrointestinal Gastrointestinal: Denies abdominal pain, diarrhea, nausea or vomiting Genitourinary Genitourinary ED: Denies dysuria, hematuria or urinary frequency Musculoskeletal Musculoskeletal: Denies arthralgias, back pain, myalgias or neck pain Integumentary Denies abscess, Abrasions or rash Neurologic Neurologic: Reports paresthesias and weakness; Denies headache(s) Psychiatric Psychiatric: Denies anxiety, depression or suicidal thoughts Endocrine Endocrinology: Denies polydipsia, polyphagia or polyuria Hematologic/Lymphatic Hematologic/Lymphatic: Denies easy bleeding, easy bruising or lymphadenopathy Allergic/Immunologic Allergic/Immunologic ED: Denies mouth swelling, tongue swelling or urticaria EXAM Physical Exam Const Vital Signs: 10/11/22 18:55 10/11/22 19:33 Temperature 97.0 F L Temperature Source Temporal Pulse Rate 106 H Respiratory Rate 18 Blood Pressure 162/102 H Blood Pressure Mean 122 Pulse Ox 100 Oxygen Delivery Method Room Air Room Air Positive well nourished and well developed General Appearance ED: well developed and NAD HEENT Reports TM's clear and moist mucous membranes normocephalic and atraumatic; Negative for trauma or tenderness Tympanic Membrane ED: Yes TM's clear Eyes PERRL and EOMs intact bilaterally General Eye ED: Negative for pale conjunctiva or scleral icterus Neck no lymphadenopathy, supple and no JVD General: Negative for tenderness Chest Wall inspection of chest normal and palpation of chest normal Chest: Negative for tenderness Resp normal respiratory effort and clear to auscultation bilaterally Effort and Inspection: Negative for respiratory distress or pain with movement Auscultation: Negative for rhonchi, wheezes or diminished lung sounds Cardio regular rate, regular rhythm, S1 normal heart sound, S2 normal heart sound and no murmurs Peripheral Pulses: pulses 2+ throughout GI normal to inspection, nondistended, normoactive bowel sounds, soft to palpation, non-tender, non-distended and no masses Back/Spine no CVA tenderness and no thoracic nor lumbar tenderness Extremity normal to inspection General Extremety ED: Negative for edema General Extremity: Negative for edema Neuro oriented x3, CN's II-XII intact bilaterally, no sensory deficits noted and gait normal Neuro Narrative: NIH stroke scale was a 2 for decreased sensation to the right side. No focal weakness noted on exam. Sensorium / Orientation: awake, alert, oriented to person, oriented to place and oriented to time Motor Exam: strength 5/5 throughout and strength abnormal Psych mental status grossly normal Skin no rashes or lesions noted and no wounds MDM MDM MDM Narrative Medical decision making narrative: Patient presents with paresthesias and loss of sensation to her right side x1 week. In the differential would be stroke or lesion of the cervical spine although she is not having any neck pain I feel this is less likely. Patient with no other significant focal deficits on exam. CT scan of the brain without contrast and CTA head and neck were unremarkable. CBC with differential showed an elevated white count of 15.2 with hemoglobin of 13.8 and platelet count of 384. Chemistries unremarkable. Troponin normal. Case will be discussed with hospitalist to evaluate patient for admission to complete stroke work-up. Lab Data Attestation: I reviewed the patient's lab results. Labs: Laboratory Results - last 24 hr 10/11/22 10/11/22 10/11/22 19:39 20:00 20:45 WBC 15.2 H RBC 3.87 L Hgb 13.8 Hct 43.2 MCV 111.6 H MCH 35.7 H MCHC 31.9 L RDW Std Deviation 59.8 H RDW Coeff of Alfredo 14.2 Plt Count 384 MPV 9.7 Immature Gran % (Auto) 0.400 Neut % (Auto) 80.0 H Lymph % (Auto) 12.2 L Jack % (Auto) 6.5 Eos % (Auto) 0.6 Baso % (Auto) 0.3 Absolute Neuts (auto) 12.2 H Absolute Lymphs (auto) 1.85 Nucleated RBC % 0 PT Cancelled INR Cancelled APTT Cancelled Sodium 138 Potassium 4.1 Chloride 108 H Carbon Dioxide 23.0 Anion Gap 7 BUN 12 Creatinine 0.99 Estim Creat Clear Calc 57.40 Est GFR (MDRD) Af Amer 75 Est GFR (MDRD) Non-Af 62 BUN/Creatinine Ratio 12.1 Glucose 96 Calcium 10.0 Troponin I High Sens 9 POC Glucose 86 Radiography Diagnostic Testing: Clinical Impression(s) from Imaging Studies Head/Neck CTA 10/11/22 19:11 IMPRESSION: No acute findings in the arteries of the head and neck. Electronically Signed: Solomon Corona MD at 21:20 EDT , ADDENDUM: 10/11/222127 IMPRESSION: No acute findings in the arteries of the head and neck. N.B. : The above Results were Read Back by Solomon Corona MD to Brianna Brewster DO, and understanding confirmed on 10/11/2022 21:22:04 (ET). Electronically Signed: Solomon Corona MD at 21:20 EDT , EKG Initial EKG: Attestation: I personally reviewed and interpreted this EKG as follows: Comments: Sinus rhythm with a rate of 94 bpm with no acute ST segment changes Discharge Plan Dx/Rx/DC Orders Clinical Impression: History of chronic kidney disease, Paresthesias, Hypertension Disposition Disposition: Acute Care Hospital [facility]
[2022-10-11 19:36] VITALS: BMI 45.5
[2022-10-11 19:57] LABS: Bedside Glucose 86 mg/dL (74-106)
[2022-10-11 20:18] LABS: Absolute Lymphocyte Count 1.85 X10^3/uL (0.83-4.51); Absolute Neutrophil Count 12.2 X10^3/uL (2.0-7.7); Basophil# 0.05 X10^3/uL; Basophil% 0.3 % (0-1); Eosinophil# 0.09 X10^3/uL; Eosinophils% 0.6 % (0-5); Hematocrit 43.2 % (37-47); Hemoglobin 13.8 g/dL (12.0-15.0); Lymphocyte # 1.85 X10^3/ul (0.83-4.51); Lymphocyte % 12.2 % (19-41); Mean Corp Hgb Conc 31.9 g/dL (32-36); Mean Corpuscular Hgb 35.7 pg (27.0-32.0); Mean Corpuscular Volume 111.6 fL (81-99); Mean Platelet Vol. 9.7 fl (6.2-12.0); Monocyte# 0.99 X10^3/uL; Monocyte% 6.5 % (0-10); NRBC Flagged by Analyzer 0 % (0-5); Neutrophil # 12.18 X10^3/uL (2.7-7.7); Platelet Count 384 K/mm3 (150-450); RBC Distribution Width CV 14.2 % (11.6-14.6); RBC Distribution Width SD 59.8 fl (35.1-43.9); Red Blood Count 3.87 M/mm3 (4.2-5.4); White Blood Count 15.2 K/mm3 (4.4-11.0)
[2022-10-11 20:38] LABS: Anion Gap 7 (5-15); BUN 12 mg/dL (7-18); BUN/Creat Ratio 12.1 RATIO (10-20); Chloride 108 mmol/L (98-107); Creatinine, Serum 0.99 mg/dL (0.55-1.02); EST Glomerular Filtration Rate 62 mL/min (>60); Est Glom Filt Rate - Afr Amer 75 mL/min (>60); Glucose 96 mg/dL (74-106); Potassium 4.1 mmol/L (3.5-5.1); Sodium Level 138 mmol/L (136-145); Troponin-I HS 9 pg/mL (3.0-54.0)
--- NOTE | 2022-10-11 20:55 | RAD_ITS ---
EXAM: XR CHEST, 1 VIEW CLINICAL INDICATION: Neuro deficit, acute, stroke suspected TECHNIQUE: Frontal view of the chest. COMPARISON: 04/22/2022 FINDINGS: LUNGS AND PLEURAL SPACES: Unremarkable. No consolidation or edema. No pneumothorax. No effusion. HEART: Unremarkable. Cardiac silhouette not enlarged. MEDIASTINUM: Central airways and mediastinal contour are unremarkable. BONES/JOINTS: Unremarkable. SOFT TISSUES: Unremarkable. RAD/Chest 1 View IMPRESSION: No radiographic evidence of acute cardiopulmonary disease. Electronically Signed: Solomon Corona MD at 21:38 EDT ,
[2022-10-11 21:00] VITALS: BP 38/20; PULSE 105; RESP 18
--- NOTE | 2022-10-11 22:08 | HP.PCM_ITS ---
[facility] - General General Date of Admission: 10/11/22 Date of Service: 10/11/22 Chief Complaint: Numbness on right side of body HPI Narrative COURTNEY CARMEN, is a 52 F who presents to the emergency room with chief complaint of numbness on right arm and right leg. Onset of symptoms began approximately 1 week ago at which time she had a negative CT scan of the brain. Today she complains of numbness and tingling in her right upper extremity and right lower extremity with sharp stabbing pains in her right shoulder area. She has no loss of motor function, no headache, fever or chills, chest pain or shortness of breath at the present time. She has no facial droop no aphasia or other neurologic findings at present time. She will be admitted to the progressive care unit put on observation and will get an MRI for the morning for further ev aluation of possible remote stroke. [facility], [facility] Medical History Abnormal glucose Anemia Anxiety Arthritis Asthma BiPAP (biphasic positive airway pressure) dependence Cardiac murmur Cardiology follow-up encounter Celiac disease Chest pain Cholelithiasis Chronic kidney disease Constipation COPD (chronic obstructive pulmonary disease) Depression Diabetes Diabetes mellitus Dietary restriction Difficulty swallowing Dyspnea on exertion Easy bruising Essential hypertension Gastric reflux GERD (gastroesophageal reflux disease) Gout History of chronic back pain History of echocardiogram History of edema History of pain when walking History of stress test Hydronephrosis Hyperlipidemia Hypersomnia Hypertension Hypothyroidism Injury of head and neck Iron deficiency anemia Leg cramps Microcytic anemia Migraine headache Morbid obesity with BMI of 40.0-44.9, adult Non-smoker Noncompliance DAVY treated with BiPAP Post-menopausal Restless leg syndrome Seasonal allergies Shortness of breath on exertion Syncope Thyroid disease Ureterolithiasis UTI (urinary tract infection) Vitamin B12 deficiency Vitamin D deficiency Wears glasses Home Medications citalopram 40 mg tablet 40 mg PO DAILY antidepressant/antianxiety 07/27/19 [History Last Taken 05/04/22] megestrol 40 mg tablet 40 mg PO QHS for heavy menses 09/28/19 [History Last Taken 05/03/22] budesonide-formoterol HFA 160 mcg-4.5 mcg/actuation aerosol inhaler (Symbicort) 2 puff inhalation BID inhaler 04/02/20 [History Last Taken 05/04/22] empagliflozin 25 mg tablet (Jardiance) 25 mg PO DAILY diabetes 04/02/20 [History Last Taken 01/05/21] loratadine 10 mg tablet 10 mg PO DAILY PRN ALLERGIES 04/02/20 [History Last Taken 01/05/21] ubrogepant 100 mg tablet (Ubrelvy) 100 mg PO DAILY migraines 04/02/20 [History Last Taken 05/04/22] rimegepant 75 mg disintegrating tablet (Nurtec ODT) 75 mg PO ONCE migraines 06/19/20 [History Last Taken 05/04/22] fluticasone fur. 100 mcg-umeclid 62.5 mcg-vilant 25 mcg inhalat.powder (Trelegy Ellipta) 1 ea inhalation DAILY COPD 08/14/20 [History Last Taken 05/04/22] gabapentin 100 mg capsule 100 mg PO TID neuropathy 09/30/20 [History Last Taken 05/04/22] galcanezumab-gnlm 120 mg/mL subcutaneous pen injector (Emgality Pen) 120 mg subcut QMONTH MIGRAINES 08/19/21 [History Last Taken 04/06/22] ondansetron 4 mg disintegrating tablet 4 mg PO Q8H PRN nausea and vomiting #10 tabs 03/03/22 [Rx Last Taken 05/04/22] tizanidine 4 mg tablet 4 mg PO QHS PRN muscle relaxer 03/03/22 [History Last Taken 05/03/22] albuterol sulfate 90 mcg/actuation breath activated powder inhaler (ProAir RespiClick) 2 inh inhalation 4X/DAY PRN Shortness Of Breath 05/04/22 [History Last Taken 05/04/22] atogepant 60 mg tablet (Qulipta) 60 mg PO DAILY MIGRAINES 05/04/22 [History Last Taken 05/04/22] levothyroxine 175 mcg tablet 175 mcg PO DAILY THYROID 05/04/22 [History Last Taken 05/04/22] lorazepam 1 mg tablet 1 mg PO TID PRN Anxiety 05/04/22 [History Last Taken Unknown] omeprazole 40 mg capsule,delayed release 40 mg PO DAILY ACID REFLUX 05/04/22 [History Last Taken 05/04/22] promethazine 25 mg tablet 25 mg PO Q4H PRN nausea and vomiting #20 tabs 05/14/22 [Rx Last Taken Unknown] amlodipine 5 mg tablet 2.5 mg PO BID blood pressure 05/27/22 [History Last Taken Unknown] valsartan 320 mg tablet 160 mg (1/2 x 320 mg) PO BID BLOOD PRESSURE #90 tabs 05/27/22 [Rx Last Taken Unknown] sulfamethoxazole 800 mg-trimethoprim 160 mg tablet 1 tab PO BID #6 TABLETS 09/29/22 [Rx Last Taken Unknown] Allergy/AdvReac Type Severity Reaction Status Date / Time hydrochlorothiazide AdvReac Intermediate Contributes Verified 10/11/22 18:55 to gout naproxen [From Naprosyn] AdvReac Intermediate Nausea Verified 10/11/22 18:55 aspirin AdvReac Nausea Verified 10/11/22 18:55 Family History Father , Age 72 Hypertension Mother CAD (coronary artery disease) Myocardial infarction, Onset Age: 55 Hypertension Sister CAD (coronary artery disease) Brother Cancer Surgical History History of History of cardiac catheterization History of carpal tunnel surgery of left wrist History of carpal tunnel surgery of right wrist History of left heart catheterization (11/11/20) history of uterine ablation Hx of cystoscopy Social History Smoking Status: Never smoker alcohol intake: never substance use type: does not use caffeine: No ROS Constitutional Constitutional: Denies change in weight, chills, fatigue or fever(s) Eyes Eyes: Denies change in vision ENT HEENT: Denies abnormal hearing, dysphagia, ear pain, headache(s), hearing loss or loss taste/smell Cardiovascular Cardiovascular: Denies chest pain Respiratory/Chest Respiratory/Chest: Denies cough or shortness of breath at rest Gastrointestinal Gastrointestinal: Denies abdominal pain Genitourinary Genitourinary: Denies dysuria Musculoskeletal Musculoskeletal: Denies back pain Integumentary Integumentary: Denies lesions Neurologic Neurologic: Reports numbness; Denies abnormal gait, abnormal speech, confusion or focal weakness Psychiatric Psychiatric: Denies anxiety Vital Signs Vital Signs Vital Signs: 10/11/22 18:55 10/11/22 19:33 Temperature 97.0 F L Temperature Source Temporal Pulse Rate 106 H Respiratory Rate 18 Blood Pressure 162/102 H Blood Pressure Mean 122 Pulse Ox 100 Oxygen Delivery Method Room Air Room Air Weight Weight: 265 lb 3.457 oz Body Mass Index (BMI) 45.5 Physical Exam Const oriented x3 General Appearance: cooperative and well developed HEENT normocephalic and head/scalp atraumatic Eyes PERRL Neck no lymphadenopathy General: trachea midline Lymph Lymphatic: no lymphadenopathy noted Resp normal respiratory effort, normal air movement and clear to auscultation bilaterally Cardio regular rate, regular rhythm, S1 normal heart sound and S2 normal heart sound Heart Sounds: murmur systolic GI soft to palpation, non-tender and non-distended Extremity normal capillary refill, no clubbing, cyanosis or edema and no calf tenderness General Extremity: Negative for edema Skin General Skin Exam: no breakdown Neuro no focal motor deficits Neuro Narrative: Right upper extremity and lower extremity paresthesia present Psych thought process normal, cooperative and affect normal Results Lab / Micro Data 10/11/22 20:00 10/11/22 20:00 Labs: Laboratory Results - last 24 hr 10/11/22 19:39: POC Glucose 86 10/11/22 20:00: WBC 15.2 H, RBC 3.87 L, Hgb 13.8, Hct 43.2, MCV 111.6 H, MCH 35.7 H, MCHC 31.9 L, RDW Std Deviation 59.8 H, RDW Coeff of Alfredo 14.2, Plt Count 384, MPV 9.7, Immature Gran % (Auto) 0.400, Neut % (Auto) 80.0 H, Lymph % (Auto) 12.2 L, Stone % (Auto) 6.5, Eos % (Auto) 0.6, Baso % (Auto) 0.3, Absolute Neuts (auto) 12.2 H, Absolute Lymphs (auto) 1.85, Nucleated RBC % 0, Sodium 138, Potassium 4.1, Chloride 108 H, Carbon Dioxide 23.0, Anion Gap 7, BUN 12, Creatinine 0.99, Estim Creat Clear Calc 57.40, Est GFR (MDRD) Af Amer 75, Est GFR (MDRD) Non-Af 62, BUN/Creatinine Ratio 12.1, Glucose 96, Calcium 10.0, Troponin I High Sens 9 10/11/22 20:45: PT Cancelled, INR Cancelled, APTT Cancelled Radiology Impression Head/Neck CTA 10/11/22 19:11 IMPRESSION: No acute findings in the arteries of the head and neck. Electronically Signed: Solomon Corona MD at 21:20 EDT , ADDENDUM: 10/11/222127 IMPRESSION: No acute findings in the arteries of the head and neck. N.B. : The above Results were Read Back by Solomon Corona MD to Brianna Brewster DO, and understanding confirmed on 10/11/2022 21:22:04 (ET). Electronically Signed: Solomon Corona MD at 21:20 EDT , Chest X-Ray 10/11/22 20:55 IMPRESSION: No radiographic evidence of acute cardiopulmonary disease. Electronically Signed: Solomon Corona MD at 21:38 EDT , Assessment & Plan Assessment/Plan (1) Hypertension: (2) Paresthesias: (3) History of chronic kidney disease: PLAN: Plan 1 right-sided paresthesia?admit patient to progressive care unit for observation, neurochecks per routine and aspirin. We will get MRI of brain in the morning. We will need physical therapy to evaluate and treat to determine course of action for discharge planning 2. History of chronic kidney disease?check BMP in the morning 3. Hypertension?routine home medications at present time 4. DVT prophylaxis?low molecular weight heparin Charges/Coding Visit Charges OBSV E&M: 17514 Observ/hosp same date L2
--- NOTE | 2022-10-11 22:18 | MRI_ITS ---
STUDY: MRI BRAIN WITHOUT CONTRAST REASON FOR EXAM: Female, 52 years old. Stroke, NUMBNESS RIGHT ARM/LEG TECHNIQUE: Standardized multiplanar fat and water weighted pulse sequences were obtained. COMPARISON: CT of the brain October 11, 2022 MRI of the brain April 20, 2022 FINDINGS: Normal size of the ventricles and extra-axial spaces for the patient''s age. Normal white matter tracts of the supratentorial brain. Normal bilateral basal ganglia. Normal thalami. There is no extra-axial fluid accumulation. Normal flow voids within the major intracranial circulation suggesting patency by spin echo criteria. Normal sella turcica, pituitary gland, infundibular stalk, optic chiasm and hypothalamus. Normal tectal plate and pineal gland. Normal midbrain, tila and medulla. Normal cerebellum. Normal basal cisterns. Normal bilateral temporal bones. Normal bilateral internal auditory canals. Postsurgical changes of the orbits noted. Normal visualized paranasal sinuses. Normal calvarium and skull base. Normal visualized soft tissue structures. Normal visualized upper cervical spine. No significant change since prior study MRI/Brain without Contrast IMPRESSION: Normal unenhanced MRI of the brain. Electronically Signed: Isaac Aviles MD at 16:10 EDT ,
[2022-10-11 22:26] VITALS: BP 118/101; PULSE 89; RESP 20; TEMP 36.8; O2SAT 95
[2022-10-11 22:56] VITALS: BMI 45.1
[2022-10-11 23:10] VITALS: O2SAT 95
[2022-10-11 23:51] VITALS: BP 148/83; PULSE 103; RESP 16; TEMP 37.3; O2SAT 97
[2022-10-12] VITALS (11 sets, daily range): BP systolic 108–152; BP diastolic 61–105; PULSE 89–104; RESP 16–18; TEMP 36.6–36.8; O2SAT 93–98; BMI 45.1
[2022-10-12] MEDS: LORazepam 1 MG Tablet PO (00:20)
[2022-10-12] MEDS: Ondansetron ODT 4 MG Tablet PO ×2 (00:20→18:11)
[2022-10-12 00:25] LABS: Prothrombin Time (Protime)PT. 13.4 SECONDS (11.7-14.9)
--- NOTE | 2022-10-12 01:09 | EKG12_ITS ---
Test Reason : CP Blood Pressure : / mmHG Vent. Rate : 095 BPM Atrial Rate : 095 BPM P-R Int : 142 ms QRS Dur : 088 ms QT Int : 354 ms P-R-T Axes : 047 002 026 degrees QTc Int : 444 ms Normal sinus rhythm Normal ECG When compared with ECG of 11-OCT-2022 19:18, MANUAL COMPARISON REQUIRED, DATA IS UNCONFIRMED Confirmed by CLIF ESQUEDA ([id number]), purchase request editor SONJA ZABALA ([id number]) on 10/19/2022 2:22:25 PM Referred By: DR PEREZ Confirmed By:CLIF ESQUEDA
[2022-10-12] MEDS: 0.9% Saline Lock 10 ML Syringe IV ×2 (02:55→14:33)
[2022-10-12] MEDS: Morphine 2 MG/ML Syringe IV (02:55)
[2022-10-12] MEDS: traMADol 50 MG Tablet PO (04:53)
[2022-10-12 06:08] LABS: Anion Gap 8 (5-15); BUN 11 mg/dL (7-18); BUN/Creat Ratio 11.5 RATIO (10-20); Calcium,Total 9.6 mg/dL (8.5-10.1); Chloride 109 mmol/L (98-107); Cholesterol 173 mg/dL (200); Creatinine, Serum 0.95 mg/dL (0.55-1.02); EST Glomerular Filtration Rate 65 mL/min (>60); Est Glom Filt Rate - Afr Amer 79 mL/min (>60); Estimated Creatinine Clearance 59.82 ml/min; Glucose 131 mg/dL (74-106); High Density Lipoprotein 45 mg/dL; Potassium 3.8 mmol/L (3.5-5.1); Sodium Level 141 mmol/L (136-145); Triglycerides 82 mg/dL; Very Low Density Lipoprotein 16 mg/dL (5-40)
[2022-10-12] MEDS: Levothyroxine 175 MCG Tablet PO (06:36)
[2022-10-12] MEDS: Gabapentin 100 MG Capsule PO ×3 (06:36→21:33)
--- NOTE | 2022-10-12 06:41 | NURSING ---
0115 pt c/o cp 10/07 bp 152/105 ekg obtained [address] alvarez ekg pic- no response 021 pt still c/o cp 10/07 dr alvarez still not replied, texted again stating she still has pain and can she get something?- no response [address] alvarez, responded with no stemi to text but did not address pain medications, 0234 texted again about pain meds- no response 0236 texted again about pain meds- no response [address] operator page dr alvarez- 0251 levi responded via text about pain medications did not call in.
[2022-10-12] MEDS: Budesonide Respules 0.5 MG/2 ML AMPUL.NEB. INHALATION (06:57)
--- NOTE | 2022-10-12 06:57 | CPS ---
Pt says she wears a BIPAP @HS & naps but thinks her setting is 6/4. This R.T. will call Dr Bowden's office to get settings.
[2022-10-12] MEDS: Albuterol 2.5 MG/3 ML VIAL.NEB. INHALATION ×2 (06:58→10:13)
--- NOTE | 2022-10-12 09:00 | CPS ---
This R.T. talked to Dr Bowden's RN and she reported that the most current setting she has is from May 2022 and is 02/04. A [facility] home bipap will be placed in pt's room for naps & HS.
[2022-10-12 09:39] LABS: Vitamin B12 237 pg/mL (211-911)
[2022-10-12] MEDS: Pantoprazole Sodium 40 MG Tablet PO (09:50)
[2022-10-12] MEDS: Enoxaparin 40 MG/0.4 ML Syringe SC (09:50)
[2022-10-12] MEDS: Citalopram 40 MG TABLET PO (09:50)
--- NOTE | 2022-10-12 10:40 | CPS ---
set pt up on home Resmed BIPAP at 12/[address] Bowden's office says is current settings. added water to humidifier for pt comfort.
[2022-10-12] MEDS: Acetaminophen 325 MG Tablet 650 MG PO (12:31)
[2022-10-12] MEDS: LORazepam 2 MG/ML Syringe 1 MG IV (14:33)
--- NOTE | 2022-10-12 17:22 | PCM.PN.HOSP ---
Reason for Visit Reason for Visit: Diagnoses Essential (primary) hypertension (10/11/22) Paresthesia of skin (10/11/22) Personal history of other diseases of urinary system (10/11/22) Subjective Subjective Patient seen at bedside. Was sleeping when I entered the room and had CPAP in place. Was easily awakened and was conversing normally with questioning. She denied any acute pain or discomfort. Did report mild continued paresthesias in her right arm and leg. She denied fevers or chills. No other acute concerns. Objective Data Objective Data Vital Signs: Vital Signs Temp Pulse Resp BP Pulse Ox O2 Del Method FiO2 97.9 F 94 16 146/90 H 97 Room Air 21 10/12/22 13:40 10/12/22 15:43 10/12/22 15:43 10/12/22 15:43 10/12/22 15:43 10/12/22 15:43 10/12/22 10:47 Oxygen Delivery Method Room Air Weight: 119.2 kg Body Mass Index (BMI) 45.1 Intake & Output: Intake and Output for Last 24 Hours 10/10/22 10/11/22 10/12/22 23:59 23:59 23:59 Intake Total 864 / 864 Balance 864 / 864 Lab / Micro Data Attestation: I reviewed the patient's lab results. 10/11/22 20:00 10/12/22 05:19 Labs: Laboratory Results - last 24 hr 10/11/22 19:39: POC Glucose 86 10/11/22 20:00: WBC 15.2 H, RBC 3.87 L, Hgb 13.8, Hct 43.2, MCV 111.6 H, MCH 35.7 H, MCHC 31.9 L, RDW Std Deviation 59.8 H, RDW Coeff of Alfredo 14.2, Plt Count 384, MPV 9.7, Immature Gran % (Auto) 0.400, Neut % (Auto) 80.0 H, Lymph % (Auto) 12.2 L, Anderson % (Auto) 6.5, Eos % (Auto) 0.6, Baso % (Auto) 0.3, Absolute Neuts (auto) 12.2 H, Absolute Lymphs (auto) 1.85, Nucleated RBC % 0, Sodium 138, Potassium 4.1, Chloride 108 H, Carbon Dioxide 23.0, Anion Gap 7, BUN 12, Creatinine 0.99, Estim Creat Clear Calc 57.40, Est GFR (MDRD) Af Amer 75, Est GFR (MDRD) Non-Af 62, BUN/Creatinine Ratio 12.1, Glucose 96, Calcium 10.0, Troponin I High Sens 9 10/11/22 20:45: PT Cancelled, INR Cancelled, APTT Cancelled 10/12/22 00:05: PT 13.4, INR 1.0, APTT 26.0 10/12/22 05:19: Sodium 141, Potassium 3.8, Chloride 109 H, Carbon Dioxide 24.0, Anion Gap 8, BUN 11, Creatinine 0.95, Estim Creat Clear Calc 59.82, Est GFR (MDRD) Af Amer 79, Est GFR (MDRD) Non-Af 65, BUN/Creatinine Ratio 11.5, Glucose 131 H, Calcium 9.6, Triglycerides 82, Cholesterol 173, LDL Cholesterol 112, VLDL Cholesterol 16, HDL Cholesterol 45, Vitamin B12 237, Folate 5.70 Radiography Diagnostic Testing: Radiology Impression Head/Neck CTA 10/11/22 19:11 IMPRESSION: No acute findings in the arteries of the head and neck. Electronically Signed: Solomon Corona MD at 21:20 EDT , ADDENDUM: 10/11/222127 IMPRESSION: No acute findings in the arteries of the head and neck. N.B. : The above Results were Read Back by Solomon Corona MD to Brianna Brewster DO, and understanding confirmed on 10/11/2022 21:22:04 (ET). Electronically Signed: Solomon Corona MD at 21:20 EDT , Chest X-Ray 10/11/22 20:55 IMPRESSION: No radiographic evidence of acute cardiopulmonary disease. Electronically Signed: Solomon Corona MD at 21:38 EDT , Brain MRI 10/11/22 22:18 IMPRESSION: Normal unenhanced MRI of the brain. Electronically Signed: Isaac Aviles MD at 16:10 EDT , Physical Exam Const alert, oriented x3 and no apparent distress Constitutional Narrative: Pleasant female, obese, resting comfortably in bed, no acute distress. General Appearance: cooperative and comfortable HEENT normocephalic, head/scalp atraumatic, hearing grossly normal bilaterally, nasal mucous membranes and turbinates normal and moist oral mucous membranes Eyes PERRL, EOMs intact bilaterally and conjunctivae normal Neck full ROM, no lymphadenopathy and supple Lymph Lymphatic: no lymphadenopathy noted Chest inspection of chest normal Resp normal respiratory effort, normal air movement, no use of accessory muscles and clear to auscultation bilaterally Cardio regular rate, regular rhythm, no murmurs and peripheral pulses 2+ throughout GI normal to inspection, nondistended, normoactive bowel sounds, soft to palpation, non-tender and non-distended Back/Spine normal ROM Extremity normal to inspection, full ROM and no pedal edema Skin no rashes or lesions noted Psych mental status grossly normal Assessment & Plan Assessment/Plan (1) Paresthesias: (2) History of chronic kidney disease: PLAN: Plan Patient is a 52-year-old female with history significant for COPD not on home O2, hypertension, hypothyroidism, anxiety/depression and gzk-csrhmqi-rpfttutol type 2 diabetes who presented to [facility] on 10/11 with right-sided numbness. 1. Right-sided paresthesias Unclear etiology. CT head neck on admission showed no acute findings. MRI brain without contrast on 10/12 was normal. Given these findings, very unlikely there is any significant neurological process going on. Patient does have known neuropathy, takes gabapentin for this. She states this neuropathy is different than previous however. -We will monitor overnight, no additional work-up needed at this time. PT/OT evaluations as noted below. Continue home gabapentin. 2. Difficulty with ambulation -Chronic problem but noted to be mildly worse on admission here. PT/OT evaluated today, noted that patient is able to ambulate but does have some gait instability. We will have therapy work with patient tomorrow and if patient remains stable, will plan for discharge home tomorrow. 3. Anxiety/depression ? Continue home citalopram, lorazepam as needed. 4. Hypothyroidism ? Continue home levothyroxine. 5. Hypertension ? Continue home medications. DVT prophylaxis: Lovenox CODE STATUS: Full code, unverified Expected disposition: Home, 1 to 2 days Total clinical time spent by myself addressing the patient's medical issues, reviewing all the data, and collaborating with patient's care team: 35 minutes. Charges/Coding Visit Charges Inpatient E&M: 06525 Subs Hosp L2
[2022-10-12] MEDS: tiZANidine HCl 2 MG Tablet 4 MG PO (21:32)
[2022-10-12] MEDS: Nystatin Powder 15gm Bottle 1 APPLIC TOPICAL (21:33)
[2022-10-12] MEDS: amLODIPine 2.5 MG Tablet PO (21:33)
[2022-10-12] MEDS: Megestrol 40 MG Tablet PO (21:33)
[2022-10-12] MEDS: Losartan Potassium 50 MG Tablet PO (21:33)
--- NOTE | 2022-10-12 22:21 | CPS ---
pt on sleep lab bipap machine for the night.
[2022-10-13] VITALS (9 sets, daily range): BP systolic 103–130; BP diastolic 52–79; PULSE 65–104; RESP 18–20; TEMP 36.4–37.1; O2SAT 92–99; BMI 45.1
[2022-10-13] MEDS: Gabapentin 100 MG Capsule PO ×2 (04:59→13:45)
[2022-10-13] MEDS: Levothyroxine 175 MCG Tablet PO (04:59)
[2022-10-13 05:53] LABS: Hematocrit 36.8 % (37-47); Hemoglobin 11.8 g/dL (12.0-15.0); Mean Corp Hgb Conc 32.1 g/dL (32-36); Mean Corpuscular Hgb 34.2 pg (27.0-32.0); Mean Corpuscular Volume 106.7 fL (81-99); Mean Platelet Vol. 9.8 fl (6.2-12.0); Platelet Count 376 K/mm3 (150-450); RBC Distribution Width CV 14.3 % (11.6-14.6); RBC Distribution Width SD 56.1 fl (35.1-43.9); Red Blood Count 3.45 M/mm3 (4.2-5.4); White Blood Count 9.1 K/mm3 (4.4-11.0)
[2022-10-13] MEDS: Budesonide Respules 0.5 MG/2 ML AMPUL.NEB. INHALATION (06:39)
[2022-10-13] MEDS: Albuterol 2.5 MG/3 ML VIAL.NEB. INHALATION ×3 (06:39→15:02)
[2022-10-13] MEDS: Citalopram 40 MG TABLET PO (09:11)
[2022-10-13] MEDS: Pantoprazole Sodium 40 MG Tablet PO (09:11)
[2022-10-13] MEDS: Enoxaparin 40 MG/0.4 ML Syringe SC (09:11)
[2022-10-13] MEDS: Acetaminophen 325 MG Tablet 650 MG PO ×3 (09:11→17:39)
[2022-10-13] MEDS: Nystatin Powder 15gm Bottle 1 APPLIC TOPICAL (09:11)
--- NOTE | 2022-10-13 09:42 | CASEMGMT ---
?Met with patient to complete ROBERT form. ROBERT form explained to patient who voiced understanding and signed form. Original form placed in pt?s chart and copy provided to patient Ena Kaur, Discharge Planning Asst. ?
--- NOTE | 2022-10-13 13:57 | DCINST_ITS ---
Discharge Instructions Diet Discharge Diet: No restrictions Activity Discharge Activity: Return to Normal Activity Weight Bearing Status: Full weight bearing Follow Up Care Please Follow Up With: Clifton Sanchez Chi, MD When: as needed Test Results: Test results from this visit will be discussed in further detail at your follow- up appointment, if applicable. Pending Tests Upon Discharge: none Discharge Plan Admission Admit Date/Time: 10/11/22 22:13 Primary Reason for Your Visit: right sided paresthesias Attending Provider: Eddy Jeronimo Primary Care Provider: Clifton Sanchez Chi Consulting Providers: Yair Pressley Instructions Additional Instructions / Restrictions: Continue all home medications as previously prescribed. Follow-up with your primary care doctor as needed. Discharge Orders/Prescriptions Prescriptions: Continued Ubrelvy 100 mg tablet 100 mg PO DAILY Rx Instructions: as a single dose; may repeat once in >=2 hours after first dose if needed budesonide-formoterol [Symbicort] 160-4.5 mcg/actuation HFA aerosol inhaler 2 puff INHALATION BID Nurtec ODT 75 mg tablet,disintegrating 75 mg PO ONCE gabapentin 100 mg capsule 100 mg PO TID Emgality Pen 120 mg/mL pen injector 120 mg subcut QMONTH tizanidine 4 mg tablet 4 mg PO QHS PRN (Reason: muscle relaxer) valsartan 320 mg tablet 160 mg PO BID Qty: 90 3RF Trelegy Ellipta 100-62.5-25 mcg blister with device 1 ea INHALATION DAILY ProAir RespiClick 90 mcg/actuation aerosol powdr breath activated 2 inh INHALATION 4X/DAY PRN (Reason: Shortness Of Breath) levothyroxine 175 mcg tablet 175 mcg PO DAILY lorazepam 1 mg tablet 1 mg PO TID PRN (Reason: Anxiety) Qulipta 60 mg tablet 60 mg PO DAILY promethazine 25 mg tablet 25 mg PO Q4H PRN (Reason: nausea and vomiting) Qty: 20 0RF tramadol 50 mg tablet 50 mg PO TID Patient Comments: TAKE 1 TABLET BY MOUTH THREE TIMES DAILY FOR 28 DAYS amlodipine 10 mg tablet 10 mg PO DAILY Patient Comments: TAKE 1 TABLET BY MOUTH EVERY DAY progesterone micronized 200 mg capsule 200 mg PO DAILY Patient Comments: Take 2 capsules at bedtime citalopram 40 mg tablet 40 mg PO DAILY Referrals / Follow Up: Daniel,Clifton Chi, MD [Primary Care Provider] - Disposition Disposition (needs filled in before D/C Order can be placed): Home, Self Care
--- NOTE | 2022-10-13 14:03 | PCM.DC.SUM ---
Providers Date of Admission: 10/11/22 Date of Discharge: 10/13/22 Primary Care Physician: Dr. Clifton Sanchez MD Reason For Visit: RIGHT SIDED PARESTHESIA Diagnosis Discharge Diagnosis (1) Paresthesias: Status: Acute Code(s): R20.2 - Paresthesia of skin (2) History of chronic kidney disease: Status: Chronic Code(s): Z87.448 - Personal history of other diseases of urinary system Medications at Discharge Home Medications citalopram 40 mg tablet 40 mg PO DAILY antidepressant/antianxiety 07/27/19 budesonide-formoterol HFA 160 mcg-4.5 mcg/actuation aerosol inhaler (Symbicort) 2 puff inhalation BID inhaler 04/02/20 ubrogepant 100 mg tablet (Ubrelvy) 100 mg PO DAILY migraines 04/02/20 rimegepant 75 mg disintegrating tablet (Nurtec ODT) 75 mg PO ONCE migraines 06/19/20 fluticasone fur. 100 mcg-umeclid 62.5 mcg-vilant 25 mcg inhalat.powder (Trelegy Ellipta) 1 ea inhalation DAILY COPD 08/14/20 gabapentin 100 mg capsule 100 mg PO TID neuropathy 09/30/20 galcanezumab-gnlm 120 mg/mL subcutaneous pen injector (Emgality Pen) 120 mg subcut QMONTH MIGRAINES 08/19/21 tizanidine 4 mg tablet 4 mg PO QHS PRN muscle relaxer 03/03/22 albuterol sulfate 90 mcg/actuation breath activated powder inhaler (ProAir RespiClick) 2 inh inhalation 4X/DAY PRN Shortness Of Breath 05/04/22 atogepant 60 mg tablet (Qulipta) 60 mg PO DAILY MIGRAINES 05/04/22 levothyroxine 175 mcg tablet 175 mcg PO DAILY THYROID 05/04/22 lorazepam 1 mg tablet 1 mg PO TID PRN Anxiety 05/04/22 promethazine 25 mg tablet 25 mg PO Q4H PRN nausea and vomiting #20 tabs 05/14/22 valsartan 320 mg tablet 160 mg (1/2 x 320 mg) PO BID BLOOD PRESSURE #90 tabs 05/27/22 amlodipine 10 mg tablet 10 mg PO DAILY blood pressure 10/11/22 progesterone micronized 200 mg capsule 200 mg PO DAILY hormones 10/11/22 tramadol 50 mg tablet 50 mg PO TID pain 10/11/22 Hospital Course Operations None Procedures - (CTA head and neck, MRI brain without contrast, chest x-ray) Summary of Care Provided Minutes Spent on Discharge: 38 Hospital Course: Patient is a 52-year-old female with history significant for COPD not on home O2, hypertension, hypothyroidism, anxiety/depression and sjc-hnttslf-ugzjerghg type 2 diabetes who presented to [facility] on 10/11 with right-sided numbness. Patient reported numbness of the right arm and right leg at that time. Onset of symptoms was approximately 1 week prior to presentation. She also reported sharp stabbing pains in her right shoulder area. She denied any loss of motor function. Denied any headache, fever or chills, chest pain, or shortness of breath at that time. She notably had no facial droop, no aphasia, or other neurological findings at that time. CTA head and neck was nonacute. MRI brain also showed no acute findings. Patient continued to have intermittent paresthesias of the right side during the admission. There is no clear etiology for his paresthesias, but it was felt that they were very unlikely due to any acute neurological issues. Patient will be have a history of neuropathy, though this presentation was admittedly different than her typical neuropathy findings. Patient ambulated well with PT and OT. She was discharged home in stable condition. Discharge diagnoses: Right-sided paresthesias Anxiety/depression Hypothyroidism Hypertension Neuropathy Obesity, difficulty with ambulation Total clinical time spent by myself addressing the patient's discharge needs: 30 minutes. Physical Exam Const alert, oriented x3 and no apparent distress Constitutional Narrative: Pleasant female, obese, resting comfortably in bed, no acute distress. General Appearance: cooperative and comfortable HEENT normocephalic, head/scalp atraumatic, hearing grossly normal bilaterally, nasal mucous membranes and turbinates normal and moist oral mucous membranes Eyes PERRL, EOMs intact bilaterally and conjunctivae normal Neck full ROM, no lymphadenopathy and supple Lymph Lymphatic: no lymphadenopathy noted Chest inspection of chest normal Resp normal respiratory effort, normal air movement, no use of accessory muscles and clear to auscultation bilaterally Cardio regular rate, regular rhythm, no murmurs and peripheral pulses 2+ throughout GI normal to inspection, nondistended, normoactive bowel sounds, soft to palpation, non-tender and non-distended Back/Spine normal ROM Extremity normal to inspection, full ROM and no pedal edema Skin no rashes or lesions noted Psych mental status grossly normal Weight / BMI Weight Weight: 119.2 kg Body Mass Index (BMI) 45.1 ABG / Lab / Microbiology Data 10/13/22 05:28 10/12/22 05:19 Laboratory: Laboratory Results - last 24 hr 10/13/22 05:28: WBC 9.1, RBC 3.45 L, Hgb 11.8 L, Hct 36.8 L, MCV 106.7 H, MCH 34.2 H, MCHC 32.1, RDW Std Deviation 56.1 H, RDW Coeff of Alfredo 14.3, Plt Count 376, MPV 9.8 Radiography Diagnostic Testing: Radiology Impression Brain MRI 10/11/22 22:18 IMPRESSION: Normal unenhanced MRI of the brain. Electronically Signed: Isaac Aviles MD at 16:10 EDT Reading Location ID and State: [facility] / [place] , Service support , D/C Instructions Discharge Diet: No restrictions Weight Bearing Status: Full weight bearing Pending Tests Upon Discharge: none Please Follow Up With: Clifton Sanchez Chi, MD When: as needed Meaningful Use Info Meaningful Use Diagnoses (Choose all that apply): None applicable Discharge Plan Admission Admit Date/Time: 10/11/22 22:13 Primary Reason for Your Visit: right sided paresthesias Attending Provider: Eddy Jeronimo Primary Care Provider: Clifton Sanchez Chi Consulting Providers: Yair Pressley Instructions Additional Instructions / Restrictions: Continue all home medications as previously prescribed. Follow-up with your primary care doctor as needed. Discharge Orders/Prescriptions Prescriptions: Continued Ubrelvy 100 mg tablet 100 mg PO DAILY Rx Instructions: as a single dose; may repeat once in >=2 hours after first dose if needed budesonide-formoterol [Symbicort] 160-4.5 mcg/actuation HFA aerosol inhaler 2 puff INHALATION BID Nurtec ODT 75 mg tablet,disintegrating 75 mg PO ONCE gabapentin 100 mg capsule 100 mg PO TID Emgality Pen 120 mg/mL pen injector 120 mg subcut QMONTH tizanidine 4 mg tablet 4 mg PO QHS PRN (Reason: muscle relaxer) valsartan 320 mg tablet 160 mg PO BID Qty: 90 3RF Trelegy Ellipta 100-62.5-25 mcg blister with device 1 ea INHALATION DAILY ProAir RespiClick 90 mcg/actuation aerosol powdr breath activated 2 inh INHALATION 4X/DAY PRN (Reason: Shortness Of Breath) levothyroxine 175 mcg tablet 175 mcg PO DAILY lorazepam 1 mg tablet 1 mg PO TID PRN (Reason: Anxiety) Qulipta 60 mg tablet 60 mg PO DAILY promethazine 25 mg tablet 25 mg PO Q4H PRN (Reason: nausea and vomiting) Qty: 20 0RF tramadol 50 mg tablet 50 mg PO TID Patient Comments: TAKE 1 TABLET BY MOUTH THREE TIMES DAILY FOR 28 DAYS amlodipine 10 mg tablet 10 mg PO DAILY Patient Comments: TAKE 1 TABLET BY MOUTH EVERY DAY progesterone micronized 200 mg capsule 200 mg PO DAILY Patient Comments: Take 2 capsules at bedtime citalopram 40 mg tablet 40 mg PO DAILY Referrals / Follow Up: Clifton Sanchez Chi, MD [Primary Care Provider] - Disposition Disposition (needs filled in before D/C Order can be placed): Home, Self Care Charges/Coding Visit Charges Inpatient E&M: 12579 Disch Hosp >30min
--- NOTE | 2022-10-13 14:11 | PHA.DC.MR.R ---
Pharmacy [place] Med Reconciliation Pharmacy Service has performed discharge medication reconciliation for this patient. The patient's discharge medication list was reviewed for discrepancies and discrepancies were resolved. Medications at Discharge Home Medications citalopram 40 mg tablet 40 mg PO DAILY antidepressant/antianxiety 07/27/19 budesonide-formoterol HFA 160 mcg-4.5 mcg/actuation aerosol inhaler (Symbicort) 2 puff inhalation BID inhaler 04/02/20 ubrogepant 100 mg tablet (Ubrelvy) 100 mg PO DAILY migraines 04/02/20 rimegepant 75 mg disintegrating tablet (Nurtec ODT) 75 mg PO ONCE migraines 06/19/20 fluticasone fur. 100 mcg-umeclid 62.5 mcg-vilant 25 mcg inhalat.powder (Trelegy Ellipta) 1 ea inhalation DAILY COPD 08/14/20 gabapentin 100 mg capsule 100 mg PO TID neuropathy 09/30/20 galcanezumab-gnlm 120 mg/mL subcutaneous pen injector (Emgality Pen) 120 mg subcut QMONTH MIGRAINES 08/19/21 tizanidine 4 mg tablet 4 mg PO QHS PRN muscle relaxer 03/03/22 albuterol sulfate 90 mcg/actuation breath activated powder inhaler (ProAir RespiClick) 2 inh inhalation 4X/DAY PRN Shortness Of Breath 05/04/22 atogepant 60 mg tablet (Qulipta) 60 mg PO DAILY MIGRAINES 05/04/22 levothyroxine 175 mcg tablet 175 mcg PO DAILY THYROID 05/04/22 lorazepam 1 mg tablet 1 mg PO TID PRN Anxiety 05/04/22 promethazine 25 mg tablet 25 mg PO Q4H PRN nausea and vomiting #20 tabs 05/14/22 valsartan 320 mg tablet 160 mg (1/2 x 320 mg) PO BID BLOOD PRESSURE #90 tabs 05/27/22 amlodipine 10 mg tablet 10 mg PO DAILY blood pressure 10/11/22 progesterone micronized 200 mg capsule 200 mg PO DAILY hormones 10/11/22 tramadol 50 mg tablet 50 mg PO TID pain 10/11/22
--- NOTE | 2022-10-13 15:12 | CASEMGMT ---
Patient has order for discharge. RN CM in to discuss needs at discharge. Patient denies needs at discharge. Patient had no further questions or concerns at this time.
== END 2022-10-13 18:12 | disposition home or self-care (01) ==
LOC: ED 21:39 → PCU 22:03
PROVIDERS: Admitting Provider Family Medicine; Emergency Provider Emergency Medicine; PCP Family Medicine Geriatric Medicine; Visit Provider Hospitalist
DX: R20.2 Paresthesia of skin (principal); J44.9 Chronic obstructive pulmonary disease, unspecified; E11.22 Type 2 diabetes mellitus with diabetic chronic kidney disease; E11.40 Type 2 diabetes mellitus with diabetic neuropathy, unspecified; Z68.42 Body mass index [BMI] 45.0-49.9, adult; E66.01 Morbid (severe) obesity due to excess calories; Z79.51 Long term (current) use of inhaled steroids; E03.9 Hypothyroidism, unspecified; F41.9 Anxiety disorder, unspecified; F32.A Depression, unspecified; G89.29 Other chronic pain; Z79.84 Long term (current) use of oral hypoglycemic drugs; E78.5 Hyperlipidemia, unspecified; N18.9 Chronic kidney disease, unspecified; I12.9 Hypertensive chronic kidney disease with stage 1 through stage 4 chronic kidney disease, or unspecified chronic kidney disease; R20.0 Anesthesia of skin; Z79.899 Other long term (current) drug therapy; Z79.890 Hormone replacement therapy; R53.1 Weakness; K21.9 Gastro-esophageal reflux disease without esophagitis
CPT/HCPCS: 36415; 70496; 70498; 70551; 71045; 80048; 80061; 82607; 82746; 82962; 84484; 85025; 85027; 85610; 85730; 93005; 94002; 94003; 94640; 94762; 96374; 96375; 97162; 97166; 97530; 99221; 99252; 99284; A4216; G0378; G0463

== ENCOUNTER 2022-11-07 13:12 | Emergency (ER) | payer MEDICARE, MEDICAID, SELFPAY ==
[2022-11-07 13:13] VITALS: BP 142/99; PULSE 93; RESP 16; TEMP 36.4; O2SAT 99; BMI 47.5
--- NOTE | 2022-11-07 13:28 | EKG12_ITS ---
Test Reason : VOMITING/COUGH Blood Pressure : / mmHG Vent. Rate : 085 BPM Atrial Rate : 085 BPM P-R Int : 116 ms QRS Dur : 078 ms QT Int : 402 ms P-R-T Axes : 050 -02 013 degrees QTc Int : 478 ms Normal sinus rhythm Nonspecific T wave abnormality Abnormal ECG When compared with ECG of 13-OCT-2022 14:58, MANUAL COMPARISON REQUIRED, DATA IS UNCONFIRMED Confirmed by CLIF ESQUEDA ([id number]), industrial editor SONJA ZABALA ([id number]) on 11/09/2022 10:12:45 AM Referred By: DEEP Confirmed By:CLIF ESQUEDA
[2022-11-07] MEDS: Ondansetron ODT 4 MG Tablet 8 MG PO (13:33)
--- NOTE | 2022-11-07 13:33 | EX.ED.DYSGE1 ---
HPI History of Present Illness Chief Complaint: General Illness Informant: patient Narrative Narrative: Patient states for the past 4 days she has had low-grade fevers, nonproductive cough, some shortness of breath at times, nasal congestion, and diffused chest pain basically when she coughs. Also some occasional nausea and vomiting. She states yesterday, she had an episode where she was really lightheaded and felt like she was going to pass out, but she cannot remember the exact context of this. It has not happened again. Denies any palpitations or racing heartbeat. She has a home health nurse who checked her temperature and told her she had a low-grade fever several days ago, this is the first time she has presented to a practitioner for this and she has not had any testing yet. No exposure to COVID that she knows of. Patient additionally states that she has numbness throughout the right side of her body including the trunk, arm, leg, and lower face. Patient states because she cannot feel anything in her right arm. She states her right arm and leg are weak as well, but for the most part she has no trouble walking. She states she has been off balance at times and in the past couple weeks has had some minor falls without injury. The numbness and weakness have been present for over a month. She states she was seen here and admitted, which I confirmed, she had a negative MRI and saw neurology who suggested maybe she needs an outpatient MRI of her neck that has not happened yet. She states in addition to being admitted here, in this period of time she was also admitted to additional hospital at [facility], where she also saw neurology Dr. Rico and was told similar things. She states none of this is worse than it has been since she was admitted. [facility] Medical History Abnormal glucose Anemia Anxiety Arthritis Asthma BiPAP (biphasic positive airway pressure) dependence Cardiac murmur Cardiology follow-up encounter Celiac disease Chest pain Cholelithiasis Chronic kidney disease Constipation COPD (chronic obstructive pulmonary disease) Depression Diabetes Diabetes mellitus Dietary restriction Difficulty swallowing Dyspnea on exertion Easy bruising Essential hypertension Gastric reflux GERD (gastroesophageal reflux disease) Gout History of chronic back pain History of chronic kidney disease History of echocardiogram History of edema History of pain when walking History of stress test Hydronephrosis Hyperlipidemia Hypersomnia Hypertension Hypertension Hypothyroidism Injury of head and neck Iron deficiency anemia Kidney stones Leg cramps Microcytic anemia Migraine headache Morbid obesity with BMI of 40.0-44.9, adult Non-smoker Noncompliance DAVY treated with BiPAP Post-menopausal Pulmonary embolism Restless leg syndrome Seasonal allergies Shortness of breath on exertion Syncope Thyroid disease Ureterolithiasis UTI (urinary tract infection) Vitamin B12 deficiency Vitamin D deficiency Wears glasses Home Medications citalopram 40 mg tablet 40 mg PO DAILY antidepressant/antianxiety 07/27/19 [History Last Taken 05/04/22] budesonide-formoterol HFA 160 mcg-4.5 mcg/actuation aerosol inhaler (Symbicort) 2 puff inhalation BID inhaler 04/02/20 [History Last Taken 05/04/22] ubrogepant 100 mg tablet (Ubrelvy) 100 mg PO DAILY migraines 04/02/20 [History Last Taken 05/04/22] rimegepant 75 mg disintegrating tablet (Nurtec ODT) 75 mg PO ONCE migraines 06/19/20 [History Last Taken 05/04/22] fluticasone fur. 100 mcg-umeclid 62.5 mcg-vilant 25 mcg inhalat.powder (Trelegy Ellipta) 1 ea inhalation DAILY COPD 08/14/20 [History Last Taken 05/04/22] gabapentin 100 mg capsule 100 mg PO TID neuropathy 09/30/20 [History Last Taken 05/04/22] galcanezumab-gnlm 120 mg/mL subcutaneous pen injector (Emgality Pen) 120 mg subcut QMONTH MIGRAINES 08/19/21 [History Last Taken 09/26/22] tizanidine 4 mg tablet 4 mg PO QHS PRN muscle relaxer 03/03/22 [History Last Taken 05/03/22] atogepant 60 mg tablet (Qulipta) 60 mg PO DAILY MIGRAINES 05/04/22 [History Last Taken 05/04/22] levothyroxine 175 mcg tablet 175 mcg PO DAILY THYROID 05/04/22 [History Last Taken 05/04/22] lorazepam 1 mg tablet 1 mg PO TID PRN Anxiety 05/04/22 [History Last Taken Unknown] promethazine 25 mg tablet 25 mg PO Q4H PRN nausea and vomiting #20 tabs 05/14/22 [Rx Last Taken Unknown] progesterone micronized 200 mg capsule 200 mg PO DAILY hormones 10/11/22 [History Last Taken Unknown] tramadol 50 mg tablet 50 mg PO TID pain 10/11/22 [History Last Taken Unknown] amlodipine 10 mg tablet 10 mg PO DAILY blood pressure #90 tabs 10/28/22 [Rx Last Taken Unknown] valsartan 320 mg tablet 160 mg (1/2 x 320 mg) PO BID BLOOD PRESSURE #90 tabs 10/28/22 [Rx Last Taken Unknown] albuterol sulfate 90 mcg/actuation breath activated powder inhaler (ProAir RespiClick) 2 inh inhalation 4X/DAY PRN Shortness Of Breath #1 ea 11/07/22 [Rx Last Taken Unknown] Allergy/AdvReac Type Severity Reaction Status Date / Time hydrochlorothiazide AdvReac Intermediate Contributes Verified 11/07/22 13:15 to gout naproxen [From Naprosyn] AdvReac Intermediate Nausea Verified 11/07/22 13:15 aspirin AdvReac Nausea Verified 11/07/22 13:15 Family History Father , Age 72 Hypertension Mother CAD (coronary artery disease) Myocardial infarction, Onset Age: 55 Hypertension Sister CAD (coronary artery disease) Brother Cancer Surgical History (Updated 10/21/22 @ 00:01 by Anna Marie Oliva) History of History of cardiac catheterization History of carpal tunnel surgery of left wrist History of carpal tunnel surgery of right wrist History of left heart catheterization (11/11/20) history of uterine ablation Hx of cystoscopy Social History household members: none housing: apartment Smoking Status: Unknown if ever smoked alcohol intake: never substance use type: does not use caffeine: No ROS ROS ED Constitutional Constitutional ED: Reports fever(s); Denies chills ENT ENT ED: Reports nasal congestion and rhinorrhea; Denies ear pain or sore throat Cardiovascular Cardiovascular: Reports chest pain and lightheadedness; Denies orthopnea, palpitations or syncope Respiratory/Chest Respiratory/Chest: Reports cough and dyspnea; Denies orthopnea Gastrointestinal Gastrointestinal: Reports nausea and vomiting; Denies abdominal pain or diarrhea Genitourinary Genitourinary ED: Denies dysuria or hematuria Musculoskeletal Musculoskeletal: Denies myalgias or neck pain Integumentary Denies abscess or rash Neurologic Neurologic: Reports headache(s), paresthesias and weakness Psychiatric Psychiatric: Denies depression or suicidal thoughts Endocrine Endocrinology: Denies polydipsia or polyuria EXAM Physical Exam Const Vital Signs: 11/07/22 13:13 11/07/22 13:34 Temperature 97.6 F L Temperature Source Temporal Pulse Rate 93 Respiratory Rate 16 Respiratory Effort Normal Respiratory Pattern Normal Blood Pressure 142/99 H Blood Pressure Mean 113 Pulse Ox 99 Oxygen Delivery Method Room Air Positive well nourished, well developed and obese General Appearance ED: well developed and NAD Nutritional Appearance: obese HEENT Reports moist mucous membranes normocephalic and atraumatic Throat: Negative for posterior oropharynx abnormal Eyes PERRL and EOMs intact bilaterally Neck no lymphadenopathy, supple and no meningeal signs Resp normal respiratory effort and clear to auscultation bilaterally Cardio no murmurs Rate: regular rate; Negative for tachycardic Rhythm: regular rhythm GI normal to inspection, nondistended, normoactive bowel sounds, non-tender and non-distended Neuro oriented x3 and CN's II-XII intact bilaterally Neuro Narrative: Negative Romberg. Normal symmetric strength throughout. Normal [id number] and [id number] bilaterally. Normal speech. No dysarthria or aphasia or lower facial droops. Sensorium / Orientation: alert Motor Exam: strength 5/5 throughout Skin Lesions: no lesions Rashes: no rashes MDM MDM MDM Narrative Medical decision making narrative: Obtained an EKG mostly because of her complaints of near syncope yesterday, it is normal, and I do not think she needs blood work or further cardiac evaluation emergently. We did do a two-view chest x-ray which on my interpretation is normal, radiology was in agreement that there is no pneumonia or signs of pulmonary infection radiographically. Her COVID is negative. Flu is negative. In discussing with her more, her chest soreness is when she coughs, and most of the dyspnea is when she is having coughing fits although she has had an occasional episode of some mild dyspnea when she is not coughing unknown if she is wheezing or not. I think giving her some ibuprofen for the chest soreness is reasonable in addition to a prescription for albuterol inhaler to use as needed, but likely viral etiology no antibiotics indicated which I discussed with her she is comfortable with that plan following up. Radiography Diagnostic Testing: Clinical Impression(s) from Imaging Studies Chest X-Ray 11/07/22 13:44 IMPRESSION: No radiographic evidence of acute cardiopulmonary disease. Electronically Signed: Keke Castle MD at 14:02 EDT Reading Location ID and State: [facility] / ID Tel , Service support , Discharge Plan Triage Chief Complaint: General Illness ED Provider: Ricardo Driver Dx/Rx/DC Orders Clinical Impression: Acute bronchitis, Vasovagal near syncope Instructions: Acute Bronchitis Prescriptions: Continued Ubrelvy 100 mg tablet 100 mg PO DAILY Rx Instructions: as a single dose; may repeat once in >=2 hours after first dose if needed budesonide-formoterol [Symbicort] 160-4.5 mcg/actuation HFA aerosol inhaler 2 puff INHALATION BID Nurtec ODT 75 mg tablet,disintegrating 75 mg PO ONCE gabapentin 100 mg capsule 100 mg PO TID Emgality Pen 120 mg/mL pen injector 120 mg subcut QMONTH tizanidine 4 mg tablet 4 mg PO QHS PRN (Reason: muscle relaxer) Trelegy Ellipta 100-62.5-25 mcg blister with device 1 ea INHALATION DAILY levothyroxine 175 mcg tablet 175 mcg PO DAILY lorazepam 1 mg tablet 1 mg PO TID PRN (Reason: Anxiety) Qulipta 60 mg tablet 60 mg PO DAILY promethazine 25 mg tablet 25 mg PO Q4H PRN (Reason: nausea and vomiting) Qty: 20 0RF tramadol 50 mg tablet 50 mg PO TID Patient Comments: TAKE 1 TABLET BY MOUTH THREE TIMES DAILY FOR 28 DAYS progesterone micronized 200 mg capsule 200 mg PO DAILY Patient Comments: Take 2 capsules at bedtime ProAir RespiClick 90 mcg/actuation aerosol powdr breath activated 2 inh INHALATION 4X/DAY PRN (Reason: Shortness Of Breath) Qty: 1 0RF citalopram 40 mg tablet 40 mg PO DAILY amlodipine 10 mg tablet 10 mg PO DAILY Qty: 90 3RF valsartan 320 mg tablet 160 mg PO BID Qty: 90 3RF Primary Care Provider: Carolina Sadler Referrals: Carolina Sadler MD [Primary Care Provider] - 1 Week if not improving Disposition Disposition: Home, Self Care
--- NOTE | 2022-11-07 13:44 | RAD_ITS ---
INDICATION: cough, short of breath EXAMINATION/TECHNIQUE: X-RAY - XR Chest 2 Views COMPARISON: Prior study dated: October 11, 2022 FINDINGS: LINES/DEVICES: None. LUNGS: No consolidation, edema or effusion. No pneumothorax. MEDIASTINUM AND CARDIOVASCULAR STRUCTURES: Cardiac silhouette not enlarged. Central airways and mediastinal contour are unremarkable. BONES AND SOFT TISSUES: Unremarkable. RAD/Chest PA and Lateral IMPRESSION: No radiographic evidence of acute cardiopulmonary disease. Electronically Signed: Keke Castle MD at 14:02 EDT ,
[2022-11-07] MEDS: Ibuprofen 600 MG Tablet PO (14:51)
== END 2022-11-07 14:55 | disposition home or self-care (01) ==
PROVIDERS: Emergency Provider Emergency Medicine; PCP Internal Medicine; Visit Provider Emergency Medicine
DX: J20.9 Acute bronchitis, unspecified (principal); R55 Syncope and collapse; N18.9 Chronic kidney disease, unspecified; G47.33 Obstructive sleep apnea (adult) (pediatric); E66.9 Obesity, unspecified
CPT/HCPCS: 71046; 87428; 93005; 99283

== ENCOUNTER 2022-11-11 23:06 | Emergency (ER) | payer MEDICARE, MEDICAID, SELFPAY ==
[2022-11-11 23:07] VITALS: BP 108/90; PULSE 102; RESP 16; TEMP 36.4; O2SAT 98
[2022-11-11 23:09] VITALS: O2SAT 98
--- NOTE | 2022-11-11 23:22 | EKG12_ITS ---
Test Reason : SOB Blood Pressure : / mmHG Vent. Rate : 100 BPM Atrial Rate : 100 BPM P-R Int : 148 ms QRS Dur : 078 ms QT Int : 316 ms P-R-T Axes : 044 -12 247 degrees QTc Int : 407 ms Normal sinus rhythm T wave abnormality, consider inferolateral ischemia Abnormal ECG Confirmed by MIGUEL GONZALEZ, MAGALI ([id number]), electronic news gathering editor SONJA ZABALA ([id number]) on 11/15/2022 7:29:23 AM Referred By: Confirmed By:MAGALI RIVERA MD
--- NOTE | 2022-11-11 23:22 | RAD_ITS ---
EXAM: XR CHEST, 2 VIEWS CLINICAL INDICATION: cough sob cp TECHNIQUE: Frontal and lateral views of the chest. COMPARISON: 2 view chest 11/07/2022 FINDINGS: LUNGS AND PLEURAL SPACES: Unremarkable. No consolidation or edema. No pneumothorax. No effusion. HEART: Unremarkable. Cardiac silhouette not enlarged. MEDIASTINUM: Central airways and mediastinal contour are unremarkable. BONES/JOINTS: Unremarkable. SOFT TISSUES: Unremarkable. RAD/Chest PA and Lateral IMPRESSION: No radiographic evidence of acute cardiopulmonary disease. Electronically Signed: Maury Lin MD at 0:34 EDT ,
--- NOTE | 2022-11-11 23:25 | EDS_ITS ---
HPI History of Present Illness Chief Complaint: Shortness of Breath Informant: patient and EMS Narrative Narrative: Patient returns, she was here 4 days ago for similar symptoms, cough, some shortness of breath, and chest pain. She states she has had all of this ever since, but it was worse tonight especially after she became nauseated and vomited like 20 times. She states all of this is here right now although she is talking plainly. She states it is sharp across her chest, she feels it in her right arm as well. She also describes the numbness she has had on the right side of her body that has been there for some time as detailed in her last visit 4 days ago, she has had a work-up for that and is due to see neurology as an outpatient in the near future. When asked why she presented here, she starts with that, the numbness and wonders why will not it go away? The form staff took from EMS history states they were called for shortness of breath, but I had to redirect her to this in order for her to talk about it. She is very poor historian needs to be redirected multiple times. She states she lives alone, and she tells me this time that she does have a history of COPD/asthma, and she does feel like she has had those symptoms in the last for 5 days, she did not describe things like that before and did not tell us about a history of COPD even when we asked her, although it was in her record; she states she has not had an albuterol rescue inhaler and her mom brought her inhaler to her today about 4 hours ago, and she states she tried it and it did not help her dyspnea. She feels tired and weak all over. No fevers or chills that she knows of. No abdominal pain. States she has not yet followed up with her PCP but she did call for an appointment and is only able to get in in a week or 2. [facility] Medical History Abnormal glucose Anemia Anxiety Arthritis Asthma BiPAP (biphasic positive airway pressure) dependence Cardiac murmur Cardiology follow-up encounter Celiac disease Chest pain Cholelithiasis Chronic kidney disease Constipation COPD (chronic obstructive pulmonary disease) Depression Diabetes Diabetes mellitus Dietary restriction Difficulty swallowing Dyspnea on exertion Easy bruising Essential hypertension Gastric reflux GERD (gastroesophageal reflux disease) Gout History of chronic back pain History of chronic kidney disease History of echocardiogram History of edema History of pain when walking History of stress test Hydronephrosis Hyperlipidemia Hypersomnia Hypertension Hypertension Hypothyroidism Injury of head and neck Iron deficiency anemia Kidney stones Leg cramps Microcytic anemia Migraine headache Morbid obesity with BMI of 40.0-44.9, adult Non-smoker Noncompliance ADVY treated with BiPAP Post-menopausal Pulmonary embolism Restless leg syndrome Seasonal allergies Shortness of breath on exertion Syncope Thyroid disease Ureterolithiasis UTI (urinary tract infection) Vitamin B12 deficiency Vitamin D deficiency Wears glasses Home Medications citalopram 40 mg tablet 40 mg PO DAILY antidepressant/antianxiety 07/27/19 [History Last Taken 05/04/22] budesonide-formoterol HFA 160 mcg-4.5 mcg/actuation aerosol inhaler (Symbicort) 2 puff inhalation BID inhaler 04/02/20 [History Last Taken 05/04/22] ubrogepant 100 mg tablet (Ubrelvy) 100 mg PO DAILY migraines 04/02/20 [History Last Taken 05/04/22] rimegepant 75 mg disintegrating tablet (Nurtec ODT) 75 mg PO ONCE migraines 06/19/20 [History Last Taken 05/04/22] fluticasone fur. 100 mcg-umeclid 62.5 mcg-vilant 25 mcg inhalat.powder (Trelegy Ellipta) 1 ea inhalation DAILY COPD 08/14/20 [History Last Taken 05/04/22] gabapentin 100 mg capsule 100 mg PO TID neuropathy 09/30/20 [History Last Taken 05/04/22] galcanezumab-gnlm 120 mg/mL subcutaneous pen injector (Emgality Pen) 120 mg subcut QMONTH MIGRAINES 08/19/21 [History Last Taken 09/26/22] tizanidine 4 mg tablet 4 mg PO QHS PRN muscle relaxer 03/03/22 [History Last Taken 05/03/22] atogepant 60 mg tablet (Qulipta) 60 mg PO DAILY MIGRAINES 05/04/22 [History Last Taken 05/04/22] levothyroxine 175 mcg tablet 175 mcg PO DAILY THYROID 05/04/22 [History Last Taken 05/04/22] lorazepam 1 mg tablet 1 mg PO TID PRN Anxiety 05/04/22 [History Last Taken Unknown] promethazine 25 mg tablet 25 mg PO Q4H PRN nausea and vomiting #20 tabs 05/14/22 [Rx Last Taken Unknown] progesterone micronized 200 mg capsule 200 mg PO DAILY hormones 10/11/22 [History Last Taken Unknown] tramadol 50 mg tablet 50 mg PO TID pain 10/11/22 [History Last Taken Unknown] amlodipine 10 mg tablet 10 mg PO DAILY blood pressure #90 tabs 10/28/22 [Rx Last Taken Unknown] valsartan 320 mg tablet 160 mg (1/2 x 320 mg) PO BID BLOOD PRESSURE #90 tabs 10/28/22 [Rx Last Taken Unknown] albuterol sulfate 90 mcg/actuation breath activated powder inhaler (ProAir RespiClick) 2 inh inhalation 4X/DAY PRN Shortness Of Breath #1 ea 11/07/22 [Rx Last Taken Unknown] doxycycline monohydrate 100 mg capsule 100 mg PO BID #14 CAPSULES 11/12/22 [Rx Last Taken Unknown] Allergy/AdvReac Type Severity Reaction Status Date / Time hydrochlorothiazide AdvReac Intermediate Contributes Verified 11/11/22 23:11 to gout naproxen [From Naprosyn] AdvReac Intermediate Nausea Verified 11/11/22 23:11 aspirin AdvReac Nausea Verified 11/11/22 23:11 Family History Father , Age 72 Hypertension Mother CAD (coronary artery disease) Myocardial infarction, Onset Age: 55 Hypertension Sister CAD (coronary artery disease) Brother Cancer Surgical History History of History of cardiac catheterization History of carpal tunnel surgery of left wrist History of carpal tunnel surgery of right wrist History of left heart catheterization (11/11/20) history of uterine ablation Hx of cystoscopy Social History household members: none housing: apartment Smoking Status: Never smoker alcohol intake: never substance use type: does not use caffeine: No ROS ROS ED Constitutional Constitutional ED: Reports fatigue; Denies chills or fever(s) Eyes Eyes: Denies change in vision ENT ENT ED: Reports nasal congestion and rhinorrhea; Denies ear pain or sore throat Cardiovascular Cardiovascular: Reports chest pain; Denies palpitations Respiratory/Chest Respiratory/Chest: Reports cough and dyspnea; Denies sputum Gastrointestinal Gastrointestinal: Reports nausea and vomiting; Denies abdominal pain or diarrhea Genitourinary Genitourinary ED: Denies dysuria or hematuria Musculoskeletal Musculoskeletal: Denies myalgias or neck pain Integumentary Denies abscess or rash Neurologic Neurologic: Reports paresthesias RUE and RLE; Denies headache(s) Psychiatric Psychiatric: Denies depression or suicidal thoughts Endocrine Endocrinology: Denies polydipsia or polyuria EXAM Physical Exam Const Vital Signs: 11/11/22 23:07 11/11/22 23:09 Temperature 97.6 F L Temperature Source Temporal Pulse Rate 102 H Respiratory Rate 16 Respiratory Effort Normal Non-Labored Respiratory Depth Normal Respiratory Pattern Normal Blood Pressure 108/90 H Blood Pressure Mean 96 Pulse Ox 98 Oxygen Delivery Method Room Air Room Air Positive well nourished, well developed and obese General Appearance ED: well developed and NAD Nutritional Appearance: obese HEENT Reports moist mucous membranes normocephalic and atraumatic Throat: Negative for posterior oropharynx abnormal Eyes PERRL and EOMs intact bilaterally Neck no lymphadenopathy, supple, no meningeal signs and no JVD Resp normal respiratory effort and clear to auscultation bilaterally Effort and Inspection: able to speak in complete sentences; Negative for tachypneic, respiratory distress, pursed lip breathing, grunting, stridor, actively coughing or prolonged expiratory phase Cardio no murmurs Rate: regular rate Rhythm: regular rhythm GI non-tender and non-distended GI Narrative: exam limited by morbid obesity Auscultation: normoactive bowel sounds Palpation: soft Back/Spine normal to inspection Extremity normal to inspection General Extremety ED: Negative for edema General Extremity: Negative for edema Neuro oriented x3, CN's II-XII intact bilaterally and no sensory deficits noted Sensorium / Orientation: alert Motor Exam: strength 5/5 throughout Psych Psych Narrative: flat affect Skin Lesions: no lesions Rashes: no rashes MDM MDM MDM Narrative Medical decision making narrative: Repeated patient's chest x-ray, 2 views of my interpretation negative for pneumonia or pneumothorax, or effusion. Her cardiac work-up is unremarkable. The chest discomfort is certainly atypical and I am at a low suspicion that it is angina, and with her EKG looking unchanged and her troponin and single digits, this essentially rules out acute coronary syndrome in my judgment. She does have a significant leukocytosis, she has had these in the past, and she does have some bands. This is of unknown significance in context. She was given a duo nebulizer treatment which did help her breathing, she was 98% on room air prior to the treatment and not objectively dyspneic/tachypneic. She states she has a rescue inhaler now. She is a diabetic she confirms that, and when asked about checking her sugars she states she has a nurse check it for her, twice a week. Given that she clearly is not having any significant COPD exacerbation, my judgment is that steroids could do more harm than benefit in this context so I would not recommend them and she is fine with that. I will place her on some broad-spectrum antibiotics, will prescribe her doxycycline for 1 week, given the leukocytosis, and it may have the additional benefit of preventing bacterial superinfection if indeed she has viral bronchitis which is what I suspect. Discussed all this with her she is comfortable with this plan going home tonight. Lab Data Attestation: I reviewed the patient's lab results. Labs: Laboratory Results - last 24 hr 11/11/22 23:35 WBC 16.8 H RBC 3.96 L Hgb 12.9 Hct 40.7 MCV 102.8 H MCH 32.6 H MCHC 31.7 L RDW Std Deviation 54.5 H RDW Coeff of Alfredo 14.3 Plt Count 491 H MPV 9.4 Immature Gran % (Auto) 1.400 H Neut % (Auto) 75.2 H Lymph % (Auto) 14.6 L [place] % (Auto) 5.4 Eos % (Auto) 2.6 Baso % (Auto) 0.8 Absolute Neuts (auto) 12.7 H Absolute Lymphs (auto) 2.45 Nucleated RBC % 0 Sodium 138 Potassium 3.5 Chloride 106 Carbon Dioxide 25.0 Anion Gap 7 BUN 10 Creatinine 1.42 H Est GFR (MDRD) Af Amer 50 L Est GFR (MDRD) Non-Af 41 L BUN/Creatinine Ratio 7.0 L Glucose 158 H Calcium 9.5 Troponin I High Sens 6 Rhythm Strip Rhythm Strip: Sinus Rhythm Rate: 100 Ectopy: None EKG Initial EKG: Attestation: I personally reviewed and interpreted this EKG as follows: Interpretation: Sinus Rhythm, No Acute Injury Pattern and Non-Specific ST Changes Prior EKG tracings: available for review Prior: Unchanged Discharge Plan Triage Chief Complaint: Shortness of Breath ED Provider: Ricardo Driver Dx/Rx/DC Orders Clinical Impression: Acute bronchitis, COPD (chronic obstructive pulmonary disease), Vomiting Instructions: Acute Bronchitis Prescriptions: New doxycycline monohydrate 100 mg capsule 100 mg PO BID Qty: 14 0RF No Action Ubrelvy 100 mg tablet 100 mg PO DAILY Rx Instructions: as a single dose; may repeat once in >=2 hours after first dose if needed budesonide-formoterol [Symbicort] 160-4.5 mcg/actuation HFA aerosol inhaler 2 puff INHALATION BID Nurtec ODT 75 mg tablet,disintegrating 75 mg PO ONCE gabapentin 100 mg capsule 100 mg PO TID Emgality Pen 120 mg/mL pen injector 120 mg subcut QMONTH tizanidine 4 mg tablet 4 mg PO QHS PRN (Reason: muscle relaxer) Trelegy Ellipta 100-62.5-25 mcg blister with device 1 ea INHALATION DAILY levothyroxine 175 mcg tablet 175 mcg PO DAILY lorazepam 1 mg tablet 1 mg PO TID PRN (Reason: Anxiety) Qulipta 60 mg tablet 60 mg PO DAILY promethazine 25 mg tablet 25 mg PO Q4H PRN (Reason: nausea and vomiting) Qty: 20 0RF tramadol 50 mg tablet 50 mg PO TID Patient Comments: TAKE 1 TABLET BY MOUTH THREE TIMES DAILY FOR 28 DAYS progesterone micronized 200 mg capsule 200 mg PO DAILY Patient Comments: Take 2 capsules at bedtime ProAir RespiClick 90 mcg/actuation aerosol powdr breath activated 2 inh INHALATION 4X/DAY PRN (Reason: Shortness Of Breath) Qty: 1 0RF citalopram 40 mg tablet 40 mg PO DAILY amlodipine 10 mg tablet 10 mg PO DAILY Qty: 90 3RF valsartan 320 mg tablet 160 mg PO BID Qty: 90 3RF Primary Care Provider: Carolina Sadler Referrals: Carolina Sadler MD [Primary Care Provider] - (When able/scheduled) Disposition Disposition: Home, Self Care
[2022-11-11] MEDS: Ipratropium/Albuterol Sulfate 3 ML AMPUL.NEB INHALATION (23:31)
[2022-11-11 23:42] LABS: Absolute Lymphocyte Count 2.45 X10^3/uL (0.83-4.51); Absolute Neutrophil Count 12.7 X10^3/uL (2.0-7.7); Basophil# 0.13 X10^3/uL; Basophil% 0.8 % (0-1); Eosinophil# 0.44 X10^3/uL; Eosinophils% 2.6 % (0-5); Hematocrit 40.7 % (37-47); Hemoglobin 12.9 g/dL (12.0-15.0); Lymphocyte # 2.45 X10^3/ul (0.83-4.51); Lymphocyte % 14.6 % (19-41); Mean Corp Hgb Conc 31.7 g/dL (32-36); Mean Corpuscular Hgb 32.6 pg (27.0-32.0); Mean Corpuscular Volume 102.8 fL (81-99); Mean Platelet Vol. 9.4 fl (6.2-12.0); Monocyte% 5.4 % (0-10); NRBC Flagged by Analyzer 0 % (0-5); Neutrophil # 12.66 X10^3/uL (2.7-7.7); Neutrophil % 75.2 % (47-70); Platelet Count 491 K/mm3 (150-450); RBC Distribution Width CV 14.3 % (11.6-14.6); RBC Distribution Width SD 54.5 fl (35.1-43.9); Red Blood Count 3.96 M/mm3 (4.2-5.4); White Blood Count 16.8 K/mm3 (4.4-11.0)
[2022-11-11] MEDS: Ondansetron 4 MG/2 ML Vial IV (23:48)
[2022-11-12 00:10] LABS: Anion Gap 7 (5-15); BUN 10 mg/dL (7-18); Calcium,Total 9.5 mg/dL (8.5-10.1); Chloride 106 mmol/L (98-107); Creatinine, Serum 1.42 mg/dL (0.55-1.02); EST Glomerular Filtration Rate 41 mL/min (>60); Est Glom Filt Rate - Afr Amer 50 mL/min (>60); Glucose 158 mg/dL (74-106); Potassium 3.5 mmol/L (3.5-5.1); Sodium Level 138 mmol/L (136-145); Troponin-I HS 6 pg/mL (3.0-54.0)
[2022-11-12 00:33] VITALS: PULSE 87; RESP 19; O2SAT 97
== END 2022-11-12 00:48 | disposition home or self-care (01) ==
PROVIDERS: Emergency Provider Emergency Medicine; PCP Internal Medicine; Visit Provider Emergency Medicine
DX: J44.0 Chronic obstructive pulmonary disease with (acute) lower respiratory infection (principal); R11.10 Vomiting, unspecified; N18.9 Chronic kidney disease, unspecified; G47.33 Obstructive sleep apnea (adult) (pediatric); E66.9 Obesity, unspecified
CPT/HCPCS: 36415; 71046; 80048; 84484; 85025; 93005; 94640; 99284; A4216; J2405

== ENCOUNTER 2022-11-17 16:35 | Emergency (ER) | payer MEDICARE, MEDICAID, SELFPAY ==
[2022-11-17 16:38] VITALS: BP 131/91; PULSE 93; RESP 16; TEMP 36.1; O2SAT 98; BMI 46.7
--- NOTE | 2022-11-17 18:01 | CT_ITS ---
STUDY: CT BRAIN WITHOUT CONTRAST REASON FOR EXAM: Female, 52 years old. Numbness RADIATION DOSAGE (If Supplied By Facility): CTDIvol = ( 44.99 ) mGy, DLP = ( 796.11 ) mGycm TECHNIQUE: Transaxial CT imaging of the brain was performed without administration of intravenous contrast material. Individualized dose optimization techniques were used for this CT. COMPARISON: October 11, 2022 FINDINGS: Normal soft tissue structures. Normal calvarium. Normal size ventricles and extra-axial spaces for the patient''s age. Normal white matter tracts of the cerebral hemispheres. Normal basal ganglia and thalami. Normal brainstem. Normal cerebellum. There is no intracranial hemorrhage. There are no findings of an acute ischemic infarction. Normal visualized paranasal sinuses. CT/Brain/Head without Contrast IMPRESSION: Normal unenhanced CT scan of the brain. Electronically Signed: Ricardo Jimenez MD at 19:44 EDT ,
--- NOTE | 2022-11-17 18:02 | EKG12_ITS ---
Test Reason : SOB Blood Pressure : / mmHG Vent. Rate : 080 BPM Atrial Rate : 080 BPM P-R Int : 158 ms QRS Dur : 090 ms QT Int : 416 ms P-R-T Axes : 047 -03 051 degrees QTc Int : 479 ms Normal sinus rhythm Nonspecific T wave abnormality Abnormal ECG Confirmed by CHAR GONZALEZ, RADHA ([id number]), editorial director SONJA ZABALA ([id number]) on 11/23/2022 10:48:23 AM Referred By: Confirmed By:TODD PARDO MD
--- NOTE | 2022-11-17 18:03 | ED.VIS.CHEST ---
HPI History of Present Illness Chief Complaint: Shortness of Breath Detail of Chief Complaint: Chest pain. Right-sided numbness. Informant: patient Onset/Context/Timing Onset: Days Activity at onset: gradual Timing: Continuous Quality: Positive for Pain Location: Substernal Current Severity: Mild Maximum Severity: Mild Worsened By: Movement of Torso Relieved By: Nothing Associated Symptoms: Negative for Nausea, Vomiting, Dyspnea, Cough, Fever, Lightheadedness, Acid Reflux or Palpitations Narrative Narrative: 52-year-old female extensive past medical history COPD, CKD, diabetes, anemia reportedly had blood clots. States that she has had neck pain for last several days numbness to her right upper and lower extremity and midsternal chest discomfort. This has been going on for 3 days. Chest pain is not exertional. Is not pleuritic. She denies any hemoptysis. No leg pain or swelling. She had nonproductive cough. Denies any fever or chills. Prior Similar Symptoms: Yes Recent Illness/Hospitalization: Yes CVD Risk Factors: Positive for Diabetes PE Risk Factors: Positive for Recent Immobilization and Prior DVT or PE; Negative for Recent Travel/Surgery, Cancer or OCP + Smoking + >/=35 TAD Risk Factors: Negative for Marfan's Syndrome [facility] Medical History Abnormal glucose Anemia Anxiety Arthritis Asthma BiPAP (biphasic positive airway pressure) dependence Cardiac murmur Cardiology follow-up encounter Celiac disease Chest pain Cholelithiasis Chronic kidney disease Constipation COPD (chronic obstructive pulmonary disease) Depression Diabetes Diabetes mellitus Dietary restriction Difficulty swallowing Dyspnea on exertion Easy bruising Essential hypertension Gastric reflux GERD (gastroesophageal reflux disease) Gout History of chronic back pain History of chronic kidney disease History of echocardiogram History of edema History of pain when walking History of stress test Hydronephrosis Hyperlipidemia Hypersomnia Hypertension Hypertension Hypothyroidism Injury of head and neck Iron deficiency anemia Kidney stones Leg cramps Microcytic anemia Migraine headache Morbid obesity with BMI of 40.0-44.9, adult Non-smoker Noncompliance DAVY treated with BiPAP Post-menopausal Pulmonary embolism Restless leg syndrome Seasonal allergies Shortness of breath on exertion Syncope Thyroid disease Ureterolithiasis UTI (urinary tract infection) Vitamin B12 deficiency Vitamin D deficiency Wears glasses Home Medications citalopram 40 mg tablet 40 mg PO DAILY antidepressant/antianxiety 07/27/19 [History Last Taken 05/04/22] budesonide-formoterol HFA 160 mcg-4.5 mcg/actuation aerosol inhaler (Symbicort) 2 puff inhalation BID inhaler 04/02/20 [History Last Taken 05/04/22] ubrogepant 100 mg tablet (Ubrelvy) 100 mg PO DAILY migraines 04/02/20 [History Last Taken 05/04/22] rimegepant 75 mg disintegrating tablet (Nurtec ODT) 75 mg PO ONCE migraines 06/19/20 [History Last Taken 05/04/22] fluticasone fur. 100 mcg-umeclid 62.5 mcg-vilant 25 mcg inhalat.powder (Trelegy Ellipta) 1 ea inhalation DAILY COPD 08/14/20 [History Last Taken 05/04/22] gabapentin 100 mg capsule 100 mg PO TID neuropathy 09/30/20 [History Last Taken 05/04/22] galcanezumab-gnlm 120 mg/mL subcutaneous pen injector (Emgality Pen) 120 mg subcut QMONTH MIGRAINES 08/19/21 [History Last Taken 09/26/22] tizanidine 4 mg tablet 4 mg PO QHS PRN muscle relaxer 03/03/22 [History Last Taken 05/03/22] atogepant 60 mg tablet (Qulipta) 60 mg PO DAILY MIGRAINES 05/04/22 [History Last Taken 05/04/22] levothyroxine 175 mcg tablet 175 mcg PO DAILY THYROID 05/04/22 [History Last Taken 05/04/22] lorazepam 1 mg tablet 1 mg PO TID PRN Anxiety 05/04/22 [History Last Taken Unknown] promethazine 25 mg tablet 25 mg PO Q4H PRN nausea and vomiting #20 tabs 05/14/22 [Rx Last Taken Unknown] progesterone micronized 200 mg capsule 200 mg PO DAILY hormones 10/11/22 [History Last Taken Unknown] tramadol 50 mg tablet 50 mg PO TID pain 10/11/22 [History Last Taken Unknown] amlodipine 10 mg tablet 10 mg PO DAILY blood pressure #90 tabs 10/28/22 [Rx Last Taken Unknown] valsartan 320 mg tablet 160 mg (1/2 x 320 mg) PO BID BLOOD PRESSURE #90 tabs 10/28/22 [Rx Last Taken Unknown] albuterol sulfate 90 mcg/actuation breath activated powder inhaler (ProAir RespiClick) 2 inh inhalation 4X/DAY PRN Shortness Of Breath #1 ea 11/07/22 [Rx Last Taken Unknown] doxycycline monohydrate 100 mg capsule 100 mg PO BID #14 CAPSULES 11/12/22 [Rx Last Taken Unknown] Allergy/AdvReac Type Severity Reaction Status Date / Time hydrochlorothiazide AdvReac Intermediate Contributes Verified 11/17/22 16:38 to gout naproxen [From Naprosyn] AdvReac Intermediate Nausea Verified 11/17/22 16:38 aspirin AdvReac Nausea Verified 11/17/22 16:38 Family History Father , Age 72 Hypertension Mother CAD (coronary artery disease) Myocardial infarction, Onset Age: 55 Hypertension Sister CAD (coronary artery disease) Brother Cancer Surgical History History of History of cardiac catheterization History of carpal tunnel surgery of left wrist History of carpal tunnel surgery of right wrist History of left heart catheterization (11/11/20) history of uterine ablation Hx of cystoscopy Social History household members: none housing: apartment Smoking Status: Never smoker alcohol intake: never substance use type: does not use caffeine: No ROS ROS ED ROS Narrative Chest pain. Right-sided numbness. Review of Systems ROS Unobtainable: Denies due to encephalopathy Constitutional Constitutional ED: Denies chills or fever(s) ENT ENT ED: Denies ear pain, rhinorrhea or sore throat Cardiovascular Cardiovascular: Reports as per HPI and chest pain; Denies palpitations or racing heartbeat Respiratory/Chest Respiratory/Chest: Reports cough Gastrointestinal Gastrointestinal: Denies abdominal pain, constipation or diarrhea Genitourinary Genitourinary ED: Denies dysuria or hematuria Musculoskeletal Musculoskeletal: Denies arthralgias Integumentary Denies abscess Neurologic Neurologic: Denies headache(s) Psychiatric Psychiatric: Denies anxiety or depression Endocrine Endocrinology: Denies cold intolerance Hematologic/Lymphatic Hematologic/Lymphatic: Denies easy bleeding or easy bruising Allergic/Immunologic Allergic/Immunologic ED: Denies mouth swelling or tongue swelling EXAM Physical Exam Narrative Exam Narrative: Well-appearing 52-year-old female. Vital signs stable afebrile. She is in no distress. Pulse ox 98% on room air no signs hypoxia. H EENT exam unremarkable. Neck nontender. Lungs clear to auscultation bilaterally. Heart regular rhythm rate about 90 no murmur. Chest wall she does have some reproducible midsternal chest wall tenderness. No ecchymosis or bruising no redness or warmth. No crepitance. Abdomen soft nontender normal bowel sounds no peritoneal signs. Moving all 4 extremities. 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 Normal dorsi plantarflexion. Neurologically she is awake and alert. NIH is 0 subjectively she said she has decreased sensation on the right upper extremity. But she has normal motor function. Const Vital Signs: 11/17/22 16:38 11/17/22 17:35 11/17/22 18:02 Temperature 97 F L Temperature Source Temporal Pulse Rate 93 Respiratory Rate 16 Respiratory Effort Normal Respiratory Depth Normal Respiratory Pattern Normal Blood Pressure 131/91 H Blood Pressure Mean 104 Pulse Ox 98 Oxygen Delivery Method Room Air Room Air 11/17/22 18:35 11/17/22 19:46 11/17/22 21:00 Temperature Temperature Source Pulse Rate 98 85 82 Respiratory Rate 14 15 20 H Respiratory Effort Respiratory Depth Respiratory Pattern Blood Pressure 131/91 H 138/94 H Blood Pressure Mean 104 108 Pulse Ox 98 98 99 Oxygen Delivery Method Room Air Room Air Room Air Positive well nourished, well developed and obese; Negative for cachectic, contractures or unkempt General Appearance ED: well developed and NAD; Negative for unkempt, cachectic, contractures or pallor Nutritional Appearance: obese; Negative for cachectic HEENT Reports moist mucous membranes normocephalic and atraumatic; Negative for trauma or tenderness Eyes PERRL and EOMs intact bilaterally General Eye ED: Negative for pale conjunctiva or scleral icterus Neck no lymphadenopathy, supple and no JVD General: Negative for tenderness or other Chest Wall inspection of chest normal and palpation of chest normal Chest: Negative for tenderness Resp normal respiratory effort and clear to auscultation bilaterally Effort and Inspection: Negative for respiratory distress Auscultation: Negative for rales, rhonchi or wheezes Cardio regular rate, regular rhythm, S1 normal heart sound, S2 normal heart sound and no murmurs Rate: Negative for bradycardia or tachycardic Peripheral Pulses: pulses 2+ throughout GI normal to inspection, nondistended, normoactive bowel sounds, soft to palpation, non-tender, non-distended and no masses Back/Spine no CVA tenderness and no thoracic nor lumbar tenderness General Back: Negative for CVA tenderness Cervical Spine: Negative for cervical spine tenderness Extremity normal to inspection General Extremety ED: Negative for edema, pulses abnormal or tenderness General Extremity: Negative for edema or pulses abnormal Neuro oriented x3 and CN's II-XII intact bilaterally Sensorium / Orientation: awake, alert, oriented to person, oriented to place and oriented to time; Negative for confused, lethargic or stuporous Motor Exam: strength 5/5 throughout Psych mental status grossly normal Appearance: Negative for unkempt Attitude: No agitated Mood & Affect: Negative for depressed, anxious or tearful Skin no rashes or lesions noted and no wounds General Skin Exam: Negative for jaundice or pallor Rashes: No rashes noted Trauma: Negative for abrasion, laceration or puncture MDM MDM MDM Narrative Medical decision making narrative: 52-year-old with very atypical noncardiac sounding reproducible chest pain with also right-sided numbness. She will undergo a cardiac work-up with a D-dimer due to her prior PEs and a CT of her brain. Repeat exam at 10:45 PM patient doing well. We went over test results. She is comfortable being discharged home. She will be given Tylenol for mild headache and some Zofran for nausea. Follow-up with her primary care physician. She did not call family for a ride. Repeat neurologic exam remains normal. She has normal childcare administrator strength in both hands. History & Record Review Discussion w/independent historian: Patient Additional record(s) reviewed:: Prior inpatient record, Prior outpatient record, Prior ED visit and Prior labs Lab Data Attestation: I reviewed the patient's lab results. Lab results narrative: CBC shows a white count of 14.7. H&H 12.3 and 39. Platelets 457. Electrolytes show a potassium of 3.4 gap of 7. BUN 9 creatinine 1.26. Glucose 91. Troponin is normal at 6. D-dimer elevated 0.8. Chest x-ray unremarkable. CT of the brain unremarkable. CT of the chest no PE. Labs: Laboratory Results - last 24 hr 11/17/22 18:53 WBC 14.7 H RBC 3.82 L Hgb 12.3 Hct 39.5 MCV 103.4 H MCH 32.2 H MCHC 31.1 L RDW Std Deviation 57.0 H RDW Coeff of Alfredo 14.9 H Plt Count 457 H MPV 9.6 Immature Gran % (Auto) 1.800 H Neut % (Auto) 69.1 Lymph % (Auto) 17.0 L [place] % (Auto) 6.7 Eos % (Auto) 4.4 Baso % (Auto) 1.0 Absolute Neuts (auto) 10.2 H Absolute Lymphs (auto) 2.50 Nucleated RBC % 0 D-Dimer Quant (PE/DVT) 0.80 H* Sodium 140 Potassium 3.4 L Chloride 107 Carbon Dioxide 26.0 Anion Gap 7 BUN 9 Creatinine 1.26 H Estim Creat Clear Calc 45.10 Est GFR (MDRD) Af Amer 57 L Est GFR (MDRD) Non-Af 47 L BUN/Creatinine Ratio 7.1 L Glucose 91 Calcium 9.2 Troponin I High Sens 6 Radiography Chest X-Ray - ED: 1 View, Read by ED Physician, Normal, Heart, Lungs, Mediastinum, Bony Structures, No Acute Disease and Chronic Changes Diagnostic Testing: Clinical Impression(s) from Imaging Studies Brain CT 11/17/22 18:01 IMPRESSION: Normal unenhanced CT scan of the brain. Electronically Signed: Ricardo Jimenez MD at 19:44 EDT Reading Location ID and State: [facility] / [place] , Service support , Chest X-Ray 11/17/22 19:15 IMPRESSION: Normal x-ray examination of the chest. Electronically Signed: Ricardo Jimenez MD at 19:56 EDT , Chest CTA 11/17/22 19:54 IMPRESSION: CTA chest examination, without a demonstrated pulmonary embolism or arterial dissection. Atherosclerosis. Electronically Signed: Ricardo Jimenez MD at 21:53 EDT , Chest x-ray, portable, single view, interpreted by myself shows no acute abnormality. Normal cardiac silhouette. No infiltrate. Rhythm Strip Rhythm Strip: Sinus Rhythm Rate: 80 Ectopy: None EKG Initial EKG: Attestation: I personally reviewed and interpreted this EKG as follows: Interpretation: Sinus Rhythm and No Acute Injury Pattern Comments: Normal sinus rhythm rate 80 no acute signs of CT or ischemia. Discharge Plan Triage Chief Complaint: Shortness of Breath ED Provider: Pipo Merritt Dx/Rx/DC Orders Clinical Impression: Chest pain of uncertain etiology, History of pulmonary embolism, History of diabetes mellitus Instructions: ED Chest Pain, Uncertain Cause Prescriptions: No Action Ubrelvy 100 mg tablet 100 mg PO DAILY Rx Instructions: as a single dose; may repeat once in >=2 hours after first dose if needed budesonide-formoterol [Symbicort] 160-4.5 mcg/actuation HFA aerosol inhaler 2 puff INHALATION BID Nurtec ODT 75 mg tablet,disintegrating 75 mg PO ONCE gabapentin 100 mg capsule 100 mg PO TID Emgality Pen 120 mg/mL pen injector 120 mg subcut QMONTH tizanidine 4 mg tablet 4 mg PO QHS PRN (Reason: muscle relaxer) Trelegy Ellipta 100-62.5-25 mcg blister with device 1 ea INHALATION DAILY levothyroxine 175 mcg tablet 175 mcg PO DAILY lorazepam 1 mg tablet 1 mg PO TID PRN (Reason: Anxiety) Qulipta 60 mg tablet 60 mg PO DAILY promethazine 25 mg tablet 25 mg PO Q4H PRN (Reason: nausea and vomiting) Qty: 20 0RF tramadol 50 mg tablet 50 mg PO TID Patient Comments: TAKE 1 TABLET BY MOUTH THREE TIMES DAILY FOR 28 DAYS progesterone micronized 200 mg capsule 200 mg PO DAILY Patient Comments: Take 2 capsules at bedtime ProAir RespiClick 90 mcg/actuation aerosol powdr breath activated 2 inh INHALATION 4X/DAY PRN (Reason: Shortness Of Breath) Qty: 1 0RF doxycycline monohydrate 100 mg capsule 100 mg PO BID Qty: 14 0RF citalopram 40 mg tablet 40 mg PO DAILY amlodipine 10 mg tablet 10 mg PO DAILY Qty: 90 3RF valsartan 320 mg tablet 160 mg PO BID Qty: 90 3RF Primary Care Provider: Carolina Sadler Referrals: Carolina Sadler MD [Primary Care Provider] - Clifton Sanchez Chi, MD [Med Staff - Active Staff] - 3-5 Days if not improving Activity Restrictions/Additional Instructions: Labs unremarkable. EKG unremarkable. CAT scan your brain normal. CAT scan your chest normal. No blood clot. Chest x-ray normal. Follow-up with your doctor if not improving. Return if worse. Disposition Disposition: Home, Self Care
[2022-11-17 18:35] VITALS: PULSE 98; RESP 14; O2SAT 98
[2022-11-17 18:59] LABS: Absolute Neutrophil Count 10.2 X10^3/uL (2.0-7.7); Basophil# 0.14 X10^3/uL; Eosinophil# 0.64 X10^3/uL; Eosinophils% 4.4 % (0-5); Hematocrit 39.5 % (37-47); Hemoglobin 12.3 g/dL (12.0-15.0); Mean Corp Hgb Conc 31.1 g/dL (32-36); Mean Corpuscular Hgb 32.2 pg (27.0-32.0); Mean Corpuscular Volume 103.4 fL (81-99); Mean Platelet Vol. 9.6 fl (6.2-12.0); Monocyte# 0.98 X10^3/uL; Monocyte% 6.7 % (0-10); NRBC Flagged by Analyzer 0 % (0-5); Neutrophil # 10.17 X10^3/uL (2.7-7.7); Neutrophil % 69.1 % (47-70); Platelet Count 457 K/mm3 (150-450); RBC Distribution Width CV 14.9 % (11.6-14.6); Red Blood Count 3.82 M/mm3 (4.2-5.4); White Blood Count 14.7 K/mm3 (4.4-11.0)
--- NOTE | 2022-11-17 19:15 | RAD_ITS ---
STUDY: X-RAY CHEST REASON FOR EXAM: Female, 52 years old. Chest pain TECHNIQUE: Single AP portable view of the chest. COMPARISON: November 11, 2022 FINDINGS: The lungs are clear and expanded. There is no demonstrated pleural abnormality. Normal size heart. Normal mediastinum and kumar. Normal visualized pulmonary arteries. Normal visualized aortic arch and descending thoracic aorta. Normal visualized thoracic spine. Normal visualized ribs, clavicles, and shoulders. There is no demonstrated abnormality of the visualized soft tissue structures of the upper abdomen. RAD/Chest 1 View (Portable) IMPRESSION: Normal x-ray examination of the chest. Electronically Signed: Ricardo Jimenez MD at 19:56 EDT ,
[2022-11-17 19:17] LABS: Anion Gap 7 (5-15); BUN 9 mg/dL (7-18); BUN/Creat Ratio 7.1 RATIO (10-20); Calcium,Total 9.2 mg/dL (8.5-10.1); Chloride 107 mmol/L (98-107); Creatinine, Serum 1.26 mg/dL (0.55-1.02); EST Glomerular Filtration Rate 47 mL/min (>60); Est Glom Filt Rate - Afr Amer 57 mL/min (>60); Glucose 91 mg/dL (74-106); Potassium 3.4 mmol/L (3.5-5.1); Sodium Level 140 mmol/L (136-145); Troponin-I HS 6 pg/mL (3.0-54.0)
[2022-11-17 19:46] VITALS: BP 131/91; PULSE 85; RESP 15; O2SAT 98
--- NOTE | 2022-11-17 19:54 | CT_ITS ---
STUDY: CTA CHEST REASON FOR EXAM: Female, 52 years old. CP w/ elevated d-dimer and PE hx RADIATION DOSAGE (If Supplied By Facility): CTDIvol = ( 12.66 ) mGy, DLP = ( 527.09 ) mGycm TECHNIQUE: The examination was performed with the intravenous administration of IV 100mL [id number]-370. Post-processing of the angiographic images was performed, with multiplanar reformation and 3D reconstruction. Individualized dose optimization techniques were used for this CT. COMPARISON: Chest x-ray FINDINGS: Normal enhancement of the main pulmonary artery and right and left pulmonary arteries. Normal enhancement of the bilateral peripheral pulmonary arteries. There is no demonstrated pulmonary embolism. There is atherosclerotic calcification of the aortic arch with tortuosity. There is no demonstrated aortic dissection. There are calcifications of the coronary arteries. Normal mediastinum. Normal hilar regions. Normal visualized trachea and bronchi. The lungs are well expanded. Normal pulmonary parenchyma. Normal pleura. Normal chest wall structures. Normal osseous structures. Normal visualized upper abdomen. CT/CTA Chest W/WO Contrast IMPRESSION: CTA chest examination, without a demonstrated pulmonary embolism or arterial dissection. Atherosclerosis. Electronically Signed: Ricardo Jimenez MD at 21:53 EDT ,
[2022-11-17 21:00] VITALS: BP 138/94; PULSE 82; RESP 20; O2SAT 99
[2022-11-17] MEDS: Acetaminophen 500 MG Tablet 1000 MG PO (21:40)
[2022-11-17 23:16] VITALS: BP 145/93; PULSE 81; RESP 15; O2SAT 97
== END 2022-11-17 23:25 | disposition home or self-care (01) ==
PROVIDERS: Emergency Provider Emergency Medicine; PCP Internal Medicine; Visit Provider Emergency Medicine
DX: R07.9 Chest pain, unspecified (principal); E11.22 Type 2 diabetes mellitus with diabetic chronic kidney disease; N18.9 Chronic kidney disease, unspecified; G47.33 Obstructive sleep apnea (adult) (pediatric); Z86.711 Personal history of pulmonary embolism
CPT/HCPCS: 70450; 71045; 71275; 80048; 84484; 85025; 85379; 93005; 99284; Q9967; A4216

== ENCOUNTER → 2022-11-19 | Outpatient (CLI) | payer MEDICARE, MEDICAID, SELFPAY ==
--- NOTE | 2022-11-19 16:01 | MRI_ITS ---
STUDY: MRI CERVICAL SPINE WITH AND WITHOUT CONTRAST REASON FOR EXAM: Female, 52 years old. PARATHESIS OF SKIN, RT SIDED NUMBNESS TECHNIQUE: Standardized fat and water weighted pulse sequences were obtained in the sagittal and axial following administration of IV 25cc clariscan. COMPARISON: CT cervical spine July 09, 2009 FINDINGS: Normal foramen magnum and brainstem-cervical cord junction. Normal craniovertebral junction. Normal anterior atlantoaxial articulation. Normal odontoid process. Normal cervical lordosis. Normal vertebral bodies and posterior osseous elements. C2-3: Normal endplates. Normal disc height, signal and morphology. Normal central canal and intervertebral neural foramina. C3-4: Normal endplates. Normal disc height, signal and morphology. Normal central canal and intervertebral neural foramina. C4-5: Normal endplates. Normal disc height, signal and morphology. Normal central canal and intervertebral neural foramina. C5-6: Small central posterior disc marginal osteophyte impinges the ventral cord. Normal disc height, signal and morphology. Normal central canal and intervertebral neural foramina. C6-7: Moderate posterior disc marginal osteophyte impinges the ventral cord.. Normal disc height, signal and morphology. Normal central canal and intervertebral neural foramina. C7-T1: Normal endplates. Normal disc height, signal and morphology. Normal central canal and intervertebral neural foramina. Normal cervical cord. Normal visualized soft tissue structures. MRI/Spine Cervical W/WO Contrast IMPRESSION: Disc marginal osteophyte impinging the ventral cord at C5-6 and C6-7 Electronically Signed: Jac Nielson MD at 0:07 EDT ,
== END | disposition home or self-care (01) ==
LOC: MRI 15:23
PROVIDERS: PCP Internal Medicine; Referring Provider Psychiatry & Neurology Neurology; Visit Provider Psychiatry & Neurology Neurology
DX: R20.2 Paresthesia of skin (principal)
CPT/HCPCS: 72156; A9575

== ENCOUNTER 2022-12-04 16:35 | Emergency (ER) | payer MEDICARE, MEDICAID, SELFPAY ==
[2022-12-04 16:36] VITALS: BP 147/90; PULSE 84; RESP 16; TEMP 35.8; O2SAT 99; BMI 49.4
--- NOTE | 2022-12-04 16:55 | EKG12_ITS ---
Test Reason : Blood Pressure : / mmHG Vent. Rate : 077 BPM Atrial Rate : 077 BPM P-R Int : 152 ms QRS Dur : 088 ms QT Int : 464 ms P-R-T Axes : 051 006 138 degrees QTc Int : 525 ms Normal sinus rhythm Nonspecific T wave abnormality Abnormal ECG Confirmed by MIGUEL GONZALEZ, MAGALI ([id number]), visual effects editor SONJA ZABALA ([id number]) on 12/07/2022 7:43:20 AM Referred By: Confirmed By:MAGALI RIVERA MD
--- NOTE | 2022-12-04 16:55 | CT_ITS ---
EXAM: CT HEAD WITHOUT INTRAVENOUS CONTRAST CLINICAL INDICATION: sensory numbness since September. TECHNIQUE: Multiple axial images were obtained of the head without intravenous contrast. This CT exam was performed using one or more of the following dose reduction techniques: automated exposure control, adjustment of the mA and/or kV according to patient size, and/or use of iterative reconstruction technique. COMPARISON: CT head, 11/17/2022 FINDINGS: BRAIN AND EXTRA-AXIAL SPACES: No significant abnormality. No intra- or extra-axial hemorrhage. No evidence of acute infarct. No intracranial mass or mass effect. There is preservation of the [place]/white matter interface. Ventricles are appropriate for age. Basal cisterns are patent. BONES/JOINTS: No significant abnormality. No discrete lytic or blastic abnormalities. SINUSES: No significant findings. MASTOID AIR CELLS: No significant effusion. ORBITS: No acute findings. CT/Brain/Head without Contrast IMPRESSION: Normal CT appearance of the head/brain. No change since prior examination. Electronically Signed: Festus Huizar DO at 19:03 EDT ,
[2022-12-04 17:13] VITALS: BP 118/81; PULSE 86; RESP 18; TEMP 36.6; O2SAT 99
[2022-12-04 17:56] LABS: Absolute Neutrophil Count 7.7 X10^3/uL (2.0-7.7); Basophil# 0.11 X10^3/uL; Basophil% 0.9 % (0-1); Eosinophil# 0.89 X10^3/uL; Eosinophils% 7.5 % (0-5); Hematocrit 38.2 % (37-47); Lymphocyte % 19.3 % (19-41); Mean Corp Hgb Conc 31.4 g/dL (32-36); Mean Corpuscular Hgb 32.6 pg (27.0-32.0); Mean Corpuscular Volume 103.8 fL (81-99); Mean Platelet Vol. 10.2 fl (6.2-12.0); Monocyte% 6.7 % (0-10); NRBC Flagged by Analyzer 0 % (0-5); Neutrophil # 7.69 X10^3/uL (2.7-7.7); Neutrophil % 64.3 % (47-70); POSITIVE COUNT YES; Platelet Count 359 K/mm3 (150-450); RBC Distribution Width CV 15.9 % (11.6-14.6); RBC Distribution Width SD 61.1 fl (35.1-43.9); Red Blood Count 3.68 M/mm3 (4.2-5.4); White Blood Count 11.9 K/mm3 (4.4-11.0)
--- NOTE | 2022-12-04 18:05 | RAD_ITS ---
EXAM: XR CHEST, 1 VIEW CLINICAL INDICATION: weakness TECHNIQUE: Frontal view of the chest. COMPARISON: 08/17/2022 FINDINGS: LUNGS AND PLEURAL SPACES: No significant abnormality. No consolidation or edema. No pneumothorax. No effusion. HEART: No significant abnormality. Cardiac silhouette not enlarged. MEDIASTINUM: Central airways and mediastinal contour are unremarkable. BONES/JOINTS: No significant abnormality. SOFT TISSUES: No significant abnormality. RAD/Chest 1 View (Portable) IMPRESSION: No radiographic evidence of acute cardiopulmonary disease. Electronically Signed: Festus Huizar DO at 19:04 EDT ,
[2022-12-04 18:13] LABS: ALB/GLOB Ratio 0.7 RATIO (0.9-2.4); AST(SGOT) 27 U/L (15-37); Alanine Aminotransfer ALT/SGPT 29 U/L (13-56); Albumin, Serum 3.1 g/dL (3.2-5.0); Alkaline Phosphatase 103 U/L (45-117); Anion Gap 7 (5-15); BUN 10 mg/dL (7-18); BUN/Creat Ratio 8.2 RATIO (10-20); Calcium,Total 9.4 mg/dL (8.5-10.1); Chloride 108 mmol/L (98-107); Creatinine, Serum 1.22 mg/dL (0.55-1.02); EST Glomerular Filtration Rate 49 mL/min (>60); Est Glom Filt Rate - Afr Amer 59 mL/min (>60); Estimated Creatinine Clearance 46.58 ml/min; Globulin 4.2 g/dL (2.2-4.2); Glucose 117 mg/dL (74-106); Potassium 3.8 mmol/L (3.5-5.1); Protein, Total 7.3 g/dL (6.4-8.2); Sodium Level 139 mmol/L (136-145)
[2022-12-04] MEDS: 0.9% Normal Saline (1000mL) 1,000 ML 1000 ML IV (18:31)
[2022-12-04 18:46] LABS: Mucous, Urine 0 SEEN /hpf (<or=2+)
[2022-12-04 18:47] LABS: Color, Urine Yellow (Yellow); Glucose, Dipstick Normal (Normal); Ketone-Dipstick Negative (Negative); Leukocyte Esterase-Dipstick 500 /ul (Negative); Nitrite-Dipstick Positive (Negative); Occult Blood-Urine 10 /ul (Negative); Protein-Dipstick 15 mg/dl (Negative); Specific Gravity, Urine 1.015 (1.002-1.030); Urine Bilirubin Dipstick Negative (Negative); Urine Clarity Clear (Clear); Urine Urobilinogen Normal (Normal)
[2022-12-04 18:48] VITALS: BP 131/85; PULSE 80; PULSE 81; RESP 15; RESP 17; TEMP 36.7; O2SAT 98; O2SAT 99
[2022-12-04 19:00] VITALS: BP 125/89; PULSE 81; RESP 16; TEMP 36.7; O2SAT 99
[2022-12-04 19:04] LABS: Bacteria 3+ /hpf (None Seen); Red Blood Cells-Urine 5-10 SEEN /hpf (0-5); Squamous Epithelial Cells - UA 0-5 SEEN /hpf (5-10); White Blood Cells 50-100 SEEN /hpf (0-5)
--- NOTE | 2022-12-04 19:22 | EX.ED.DYSGE1 ---
HPI History of Present Illness Chief Complaint: Flank Pain Narrative Narrative: Patient presents with multiple complaints she has had over 2 months of right arm and leg paresthesias, this happened after a traumatic fall. She did have a CT at the time which was negative. She is also complaining of dysuria frequency and urgency, she is also complained about chronic back pain which has had for years. She has no abdominal pain. She does not have flank pain [facility] Medical History Abnormal glucose Anemia Anxiety Arthritis Asthma BiPAP (biphasic positive airway pressure) dependence Cardiac murmur Cardiology follow-up encounter Celiac disease Chest pain Cholelithiasis Chronic kidney disease Constipation COPD (chronic obstructive pulmonary disease) Depression Diabetes Diabetes mellitus Dietary restriction Difficulty swallowing Dyspnea on exertion Easy bruising Essential hypertension Gastric reflux GERD (gastroesophageal reflux disease) Gout History of chronic back pain History of chronic kidney disease History of echocardiogram History of edema History of pain when walking History of stress test Hydronephrosis Hyperlipidemia Hypersomnia Hypertension Hypertension Hypothyroidism Injury of head and neck Iron deficiency anemia Kidney stones Leg cramps Microcytic anemia Migraine headache Morbid obesity with BMI of 40.0-44.9, adult Non-smoker Noncompliance DAVY treated with BiPAP Post-menopausal Pulmonary embolism Restless leg syndrome Seasonal allergies Shortness of breath on exertion Syncope Thyroid disease Ureterolithiasis UTI (urinary tract infection) Vitamin B12 deficiency Vitamin D deficiency Wears glasses Home Medications citalopram 40 mg tablet 40 mg PO DAILY antidepressant/antianxiety 07/27/19 [History Last Taken 05/04/22] budesonide-formoterol HFA 160 mcg-4.5 mcg/actuation aerosol inhaler (Symbicort) 2 puff inhalation BID inhaler 04/02/20 [History Last Taken 05/04/22] ubrogepant 100 mg tablet (Ubrelvy) 100 mg PO DAILY migraines 04/02/20 [History Last Taken 05/04/22] rimegepant 75 mg disintegrating tablet (Nurtec ODT) 75 mg PO ONCE migraines 06/19/20 [History Last Taken 05/04/22] fluticasone fur. 100 mcg-umeclid 62.5 mcg-vilant 25 mcg inhalat.powder (Trelegy Ellipta) 1 ea inhalation DAILY COPD 08/14/20 [History Last Taken 05/04/22] gabapentin 100 mg capsule 100 mg PO TID neuropathy 09/30/20 [History Last Taken 05/04/22] galcanezumab-gnlm 120 mg/mL subcutaneous pen injector (Emgality Pen) 120 mg subcut QMONTH MIGRAINES 08/19/21 [History Last Taken 09/26/22] tizanidine 4 mg tablet 4 mg PO QHS PRN muscle relaxer 03/03/22 [History Last Taken 05/03/22] atogepant 60 mg tablet (Qulipta) 60 mg PO DAILY MIGRAINES 05/04/22 [History Last Taken 05/04/22] lorazepam 1 mg tablet 1 mg PO TID PRN Anxiety 05/04/22 [History Last Taken Unknown] promethazine 25 mg tablet 25 mg PO Q4H PRN nausea and vomiting #20 tabs 05/14/22 [Rx Last Taken Unknown] progesterone micronized 200 mg capsule 200 mg PO DAILY hormones 10/11/22 [History Last Taken Unknown] tramadol 50 mg tablet 50 mg PO TID pain 10/11/22 [History Last Taken Unknown] amlodipine 10 mg tablet 10 mg PO DAILY blood pressure #90 tabs 10/28/22 [Rx Last Taken Unknown] valsartan 320 mg tablet 160 mg (1/2 x 320 mg) PO BID BLOOD PRESSURE #90 tabs 10/28/22 [Rx Last Taken Unknown] albuterol sulfate 90 mcg/actuation breath activated powder inhaler (ProAir RespiClick) 2 inh inhalation 4X/DAY PRN Shortness Of Breath #1 ea 11/07/22 [Rx Last Taken Unknown] doxycycline monohydrate 100 mg capsule 100 mg PO BID #14 CAPSULES 11/12/22 [Rx Last Taken Unknown] levothyroxine 175 mcg tablet 175 mcg PO DAILY order as courtesy until pt sees PCP 11/25/22 #30 tabs 11/18/22 [Rx Last Taken Unknown] cefdinir 300 mg capsule 300 mg PO BID #14 caps 12/04/22 [Rx Last Taken Unknown] Allergy/AdvReac Type Severity Reaction Status Date / Time hydrochlorothiazide AdvReac Intermediate Contributes Verified 12/04/22 16:53 to gout naproxen [From Naprosyn] AdvReac Intermediate Nausea Verified 12/04/22 16:53 aspirin AdvReac Nausea Verified 12/04/22 16:53 Family History Father , Age 72 Hypertension Mother CAD (coronary artery disease) Myocardial infarction, Onset Age: 55 Hypertension Sister CAD (coronary artery disease) Brother Cancer Surgical History History of History of cardiac catheterization History of carpal tunnel surgery of left wrist History of carpal tunnel surgery of right wrist History of left heart catheterization (11/11/20) history of uterine ablation Hx of cystoscopy Social History household members: none housing: apartment Smoking Status: Never smoker alcohol intake: never substance use type: does not use caffeine: No ROS ROS ED ROS Narrative Review of systems: All systems negative except as indicated General: No fever Eyes: No visual changes ENT: No upper airway congestion, normal voice Neck: No neck pain Cardiovascular: No chest pain Respiratory: No shortness of breath or cough Gastrointestinal: No abdominal pain, nausea vomiting or diarrhea Genitourinary: Urinary symptoms as in HPI Musculoskeletal: Chronic back pain but is able to ambulate Skin: No rash Neurological: No memory loss, confusion or any focal weakness. Now chronic right-sided paresthesias Psych: No recent behavioral changes Hematologic: No easy bleeding or easy bruising EXAM Physical Exam Narrative Exam Narrative: Physical exam General: Patient appears relatively comfortable in the bed Head: Normocephalic, Atraumatic Eyes: Conjunctiva not pale ENT: Moist mucous membranes Neck: Supple, Nontender, No lymphadenopathy Cardiovascular: Regular rate, Regular rhythm Respiratory: No distress, CTA bilaterally Abdomen: Soft, Nontender, Nondistended Back: Tenderness is mostly over the right lumbar region in the paraspinal and buttock region. Extremities: Nontender, No edema Skin: Normal color, No rash Neurological: Alert, Normal Strength, somewhat decreased sensation on the right than the left again this is chronic. Const Vital Signs: 12/04/22 16:36 12/04/22 17:13 12/04/22 18:48 Temperature 96.4 F L 97.8 F 98.1 F Temperature Source Temporal Oral Oral Pulse Rate 84 86 81 Respiratory Rate 16 18 15 Blood Pressure 147/90 H 118/81 H 131/85 H Blood Pressure Mean 109 93 100 Pulse Ox 99 99 99 Oxygen Delivery Method Room Air Room Air Room Air 12/04/22 18:48 Temperature Temperature Source Pulse Rate 80 Respiratory Rate 17 Blood Pressure 131/85 H Blood Pressure Mean 100 Pulse Ox 98 Oxygen Delivery Method Room Air MDM MDM MDM Narrative Medical decision making narrative: Patient is found to have a urinary tract infection. Otherwise unremarkable work-up. Because she was complaining about paresthesias even though it was status post a trauma I did repeat a CT which was unremarkable. The blood work was normal. She does not have evidence of sepsis. She has a UTI which I will treat. Otherwise patient is safe for discharge. Lab Data Labs: Laboratory Results - last 24 hr 12/04/22 12/04/22 17:45 18:39 WBC 11.9 H RBC 3.68 L Hgb 12.0 Hct 38.2 MCV 103.8 H MCH 32.6 H MCHC 31.4 L RDW Std Deviation 61.1 H RDW Coeff of Alfredo 15.9 H Plt Count 359 MPV 10.2 Immature Gran % (Auto) 1.300 H Neut % (Auto) 64.3 Lymph % (Auto) 19.3 [place] % (Auto) 6.7 Eos % (Auto) 7.5 H Baso % (Auto) 0.9 Absolute Neuts (auto) 7.7 Absolute Lymphs (auto) 2.30 Nucleated RBC % 0 Sodium 139 Potassium 3.8 Chloride 108 H Carbon Dioxide 24.0 Anion Gap 7 BUN 10 Creatinine 1.22 H Estim Creat Clear Calc 46.58 Est GFR (MDRD) Af Amer 59 L Est GFR (MDRD) Non-Af 49 L BUN/Creatinine Ratio 8.2 L Glucose 117 H Calcium 9.4 Total Bilirubin 0.30 AST 27 ALT 29 Alkaline Phosphatase 103 Total Protein 7.3 Albumin 3.1 L Globulin 4.2 Albumin/Globulin Ratio 0.7 L Urine Color Yellow Urine Clarity Clear Urine pH 6.0 Ur Specific [place] 1.015 Urine Protein 15 H Urine Glucose (UA) Normal Urine Ketones Negative Urine Occult Blood 10 H Urine Nitrite Positive H Urine Bilirubin Negative Urine Urobilinogen Normal Ur Leukocyte Esterase 500 H Urine RBC 5-10 SEEN Urine WBC 50-100 SEEN Ur Squamous Epith Cells 0-5 SEEN Urine Bacteria 3+ Urine Mucus 0 SEEN Radiography Diagnostic Testing: Clinical Impression(s) from Imaging Studies Brain CT 12/04/22 16:55 IMPRESSION: Normal CT appearance of the head/brain. No change since prior examination. Electronically Signed: Festus Huizar DO at 19:03 EDT , Chest X-Ray 12/04/22 18:05 IMPRESSION: No radiographic evidence of acute cardiopulmonary disease. Electronically Signed: Festus Huizar DO at 19:04 EDT , Discharge Plan Triage Chief Complaint: Flank Pain ED Provider: Yair Jenkins Dx/Rx/DC Orders Clinical Impression: UTI (urinary tract infection), TBI (traumatic brain injury), Back pain Instructions: Urinary Tract Infections in Women Prescriptions: New cefdinir 300 mg capsule 300 mg PO BID Qty: 14 0RF No Action Ubrelvy 100 mg tablet 100 mg PO DAILY Rx Instructions: as a single dose; may repeat once in >=2 hours after first dose if needed budesonide-formoterol [Symbicort] 160-4.5 mcg/actuation HFA aerosol inhaler 2 puff INHALATION BID Nurtec ODT 75 mg tablet,disintegrating 75 mg PO ONCE gabapentin 100 mg capsule 100 mg PO TID Emgality Pen 120 mg/mL pen injector 120 mg subcut QMONTH tizanidine 4 mg tablet 4 mg PO QHS PRN (Reason: muscle relaxer) Trelegy Ellipta 100-62.5-25 mcg blister with device 1 ea INHALATION DAILY lorazepam 1 mg tablet 1 mg PO TID PRN (Reason: Anxiety) Qulipta 60 mg tablet 60 mg PO DAILY promethazine 25 mg tablet 25 mg PO Q4H PRN (Reason: nausea and vomiting) Qty: 20 0RF tramadol 50 mg tablet 50 mg PO TID Patient Comments: TAKE 1 TABLET BY MOUTH THREE TIMES DAILY FOR 28 DAYS progesterone micronized 200 mg capsule 200 mg PO DAILY Patient Comments: Take 2 capsules at bedtime ProAir RespiClick 90 mcg/actuation aerosol powdr breath activated 2 inh INHALATION 4X/DAY PRN (Reason: Shortness Of Breath) Qty: 1 0RF doxycycline monohydrate 100 mg capsule 100 mg PO BID Qty: 14 0RF citalopram 40 mg tablet 40 mg PO DAILY amlodipine 10 mg tablet 10 mg PO DAILY Qty: 90 3RF valsartan 320 mg tablet 160 mg PO BID Qty: 90 3RF levothyroxine 175 mcg tablet 175 mcg PO DAILY Qty: 30 1RF Primary Care Provider: Halina Johnson Referrals: Halina Johnson, [Primary Care Provider] - 3-5 Days Disposition Disposition: Home, Self Care
[2022-12-04] MEDS: Ceftriaxone 1 GM/50 ML BAG IV (19:30)
[2022-12-04] MEDS: Acetaminophen 500 MG Tablet 1000 MG PO (19:41)
[2022-12-04 20:00] VITALS: BP 125/86; PULSE 81; RESP 16; TEMP 36.6; O2SAT 99
== END 2022-12-04 20:14 | disposition home or self-care (01) ==
PROVIDERS: Emergency Provider Emergency Medicine; PCP Family Medicine; Visit Provider Emergency Medicine
DX: N39.0 Urinary tract infection, site not specified (principal); S06.9XAA Unspecified intracranial injury with loss of consciousness status unknown, initial encounter; N18.9 Chronic kidney disease, unspecified; M54.9 Dorsalgia, unspecified; G89.29 Other chronic pain; W19.XXXA Unspecified fall, initial encounter
CPT/HCPCS: 70450; 71045; 80053; 81001; 85025; 93005; 96361; 96365; 99282; J7030; A4216

== ENCOUNTER 2022-12-09 11:02 | Emergency (ER) | payer MEDICARE, MEDICAID, SELFPAY ==
[2022-12-09 11:03] VITALS: BP 146/97; PULSE 84; RESP 18; TEMP 35.8; O2SAT 100; BMI 49.2
--- NOTE | 2022-12-09 11:15 | EKG12_ITS ---
Test Reason : GENERAL Blood Pressure : / mmHG Vent. Rate : 072 BPM Atrial Rate : 072 BPM P-R Int : 148 ms QRS Dur : 082 ms QT Int : 430 ms P-R-T Axes : 052 -16 215 degrees QTc Int : 470 ms Normal sinus rhythm with sinus arrhythmia Cannot rule out Inferior infarct , age undetermined T wave abnormality, consider lateral ischemia Abnormal ECG Confirmed by MAGALI RIVERA MD ([id number]), city editor ROMEL AMARO ([id number]) on 12/13/2022 2:17:15 PM Referred By: Confirmed By:MAGALI RIVERA MD
--- NOTE | 2022-12-09 11:15 | EX.ED.DYSGE1 ---
HPI History of Present Illness Chief Complaint: General Illness Narrative Narrative: 52-year-old female with multiple medical problems presenting to the emergency room with chest tightness. Patient states that on Tuesday she began to feel rundown some chest tightness and nonproductive cough slight sore throat. She was seen approximately a week ago and was diagnosed with urinary tract infection at that time had low back discomfort as well as dysuria. She states that that is improving and she is on an antibiotic but does not know what it is. She denies any fevers. She notes generalized myalgias. No emesis or diarrhea. She does have a history of COPD but notes she has not been wheezing. Chest tightness is not exacerbated by exertion. The patient states that she is by nature extremely anxious and she was starting to worry about her health and wanted to be evaluated. [facility] Medical History Abnormal glucose Anemia Anxiety Arthritis Asthma BiPAP (biphasic positive airway pressure) dependence Cardiac murmur Cardiology follow-up encounter Celiac disease Chest pain Cholelithiasis Chronic kidney disease Constipation COPD (chronic obstructive pulmonary disease) Depression Diabetes Diabetes mellitus Dietary restriction Difficulty swallowing Dyspnea on exertion Easy bruising Essential hypertension Gastric reflux GERD (gastroesophageal reflux disease) Gout History of chronic back pain History of chronic kidney disease History of echocardiogram History of edema History of pain when walking History of stress test Hydronephrosis Hyperlipidemia Hypersomnia Hypertension Hypertension Hypothyroidism Injury of head and neck Iron deficiency anemia Kidney stones Leg cramps Microcytic anemia Migraine headache Morbid obesity with BMI of 40.0-44.9, adult Non-smoker Noncompliance DAVY treated with BiPAP Post-menopausal Pulmonary embolism Restless leg syndrome Seasonal allergies Shortness of breath on exertion Syncope Thyroid disease Ureterolithiasis UTI (urinary tract infection) Vitamin B12 deficiency Vitamin D deficiency Wears glasses Home Medications citalopram 40 mg tablet 40 mg PO DAILY antidepressant/antianxiety 07/27/19 [History Last Taken 05/04/22] budesonide-formoterol HFA 160 mcg-4.5 mcg/actuation aerosol inhaler (Symbicort) 2 puff inhalation BID inhaler 04/02/20 [History Last Taken 05/04/22] ubrogepant 100 mg tablet (Ubrelvy) 100 mg PO DAILY migraines 04/02/20 [History Last Taken 05/04/22] rimegepant 75 mg disintegrating tablet (Nurtec ODT) 75 mg PO ONCE migraines 06/19/20 [History Last Taken 05/04/22] fluticasone fur. 100 mcg-umeclid 62.5 mcg-vilant 25 mcg inhalat.powder (Trelegy Ellipta) 1 ea inhalation DAILY COPD 08/14/20 [History Last Taken 05/04/22] gabapentin 100 mg capsule 100 mg PO TID neuropathy 09/30/20 [History Last Taken 05/04/22] galcanezumab-gnlm 120 mg/mL subcutaneous pen injector (Emgality Pen) 120 mg subcut QMONTH MIGRAINES 08/19/21 [History Last Taken 09/26/22] tizanidine 4 mg tablet 4 mg PO QHS PRN muscle relaxer 03/03/22 [History Last Taken 05/03/22] atogepant 60 mg tablet (Qulipta) 60 mg PO DAILY MIGRAINES 05/04/22 [History Last Taken 05/04/22] lorazepam 1 mg tablet 1 mg PO TID PRN Anxiety 05/04/22 [History Last Taken Unknown] promethazine 25 mg tablet 25 mg PO Q4H PRN nausea and vomiting #20 tabs 05/14/22 [Rx Last Taken Unknown] progesterone micronized 200 mg capsule 200 mg PO DAILY hormones 10/11/22 [History Last Taken Unknown] tramadol 50 mg tablet 50 mg PO TID pain 10/11/22 [History Last Taken Unknown] amlodipine 10 mg tablet 10 mg PO DAILY blood pressure #90 tabs 10/28/22 [Rx Last Taken Unknown] valsartan 320 mg tablet 160 mg (1/2 x 320 mg) PO BID BLOOD PRESSURE #90 tabs 10/28/22 [Rx Last Taken Unknown] albuterol sulfate 90 mcg/actuation breath activated powder inhaler (ProAir RespiClick) 2 inh inhalation 4X/DAY PRN Shortness Of Breath #1 ea 11/07/22 [Rx Last Taken Unknown] doxycycline monohydrate 100 mg capsule 100 mg PO BID #14 CAPSULES 11/12/22 [Rx Last Taken Unknown] levothyroxine 175 mcg tablet 175 mcg PO DAILY order as courtesy until pt sees PCP 11/25/22 #30 tabs 11/18/22 [Rx Last Taken Unknown] cefdinir 300 mg capsule 300 mg PO BID #14 caps 12/04/22 [Rx Last Taken Unknown] Allergy/AdvReac Type Severity Reaction Status Date / Time hydrochlorothiazide AdvReac Intermediate Contributes Verified 12/09/22 11:04 to gout naproxen [From Naprosyn] AdvReac Intermediate Nausea Verified 12/09/22 11:04 aspirin AdvReac Nausea Verified 12/09/22 11:04 Family History Father , Age 72 Hypertension Mother CAD (coronary artery disease) Myocardial infarction, Onset Age: 55 Hypertension Sister CAD (coronary artery disease) Brother Cancer Surgical History History of History of cardiac catheterization History of carpal tunnel surgery of left wrist History of carpal tunnel surgery of right wrist History of left heart catheterization (11/11/20) history of uterine ablation Hx of cystoscopy Social History household members: none housing: apartment Smoking Status: Never smoker alcohol intake: never substance use type: does not use caffeine: No ROS ROS ED Constitutional Constitutional ED: Reports chills; Denies fever(s) or weight loss Eyes Eyes: Denies change in vision or diplopia ENT ENT ED: Reports sore throat; Denies ear pain or rhinorrhea Cardiovascular Cardiovascular: Reports chest pain; Denies orthopnea, palpitations or racing heartbeat Respiratory/Chest Respiratory/Chest: Reports cough; Denies dyspnea or orthopnea Gastrointestinal Gastrointestinal: Denies abdominal pain, diarrhea, nausea or vomiting Genitourinary Genitourinary ED: Reports dysuria; Denies hematuria or urinary frequency Musculoskeletal Musculoskeletal: Reports back pain; Denies arthralgias or myalgias Integumentary Denies abscess or rash Neurologic Neurologic: Denies headache(s) or weakness Psychiatric Psychiatric: Denies anxiety, depression, suicidal ideation or suicidal thoughts Endocrine Endocrinology: Denies polydipsia, polyphagia or polyuria Allergic/Immunologic Allergic/Immunologic ED: Denies mouth swelling, tongue swelling or urticaria EXAM Physical Exam Const Vital Signs: 12/09/22 11:03 Temperature 96.5 F L Temperature Source Temporal Pulse Rate 84 Respiratory Rate 18 Blood Pressure 146/97 H Blood Pressure Mean 113 Pulse Ox 100 Oxygen Delivery Method Room Air Positive well nourished, well developed and obese General Appearance ED: well developed Nutritional Appearance: obese HEENT Reports normocephalic, head/scalp atraumatic and moist mucous membranes Eyes PERRL and EOMs intact bilaterally Neck no lymphadenopathy, supple and no JVD Resp normal respiratory effort and clear to auscultation bilaterally Cardio regular rate, regular rhythm and no murmurs GI normal to inspection, nondistended, normoactive bowel sounds and non-tender Palpation: soft Back/Spine normal ROM General Back: CVA tenderness bilateral Extremity normal to inspection General Extremety ED: Negative for edema General Extremity: Negative for edema Neuro oriented x3 and CN's II-XII intact bilaterally Sensorium / Orientation: alert Motor Exam: strength 5/5 throughout Psych mental status grossly normal Mood & Affect: Negative for depressed or tearful Skin no rashes or lesions noted and no wounds MDM MDM MDM Narrative Medical decision making narrative: Patient's white count was 12.2 hemoglobin 12.4. Platelet count of 402. Creatinine 1.30 CO2 of 23 anion gap of 8. Troponin is 7. Urinalysis demonstrates 50-100 white blood cells 0 bacteria negative nitrates this appears to be an improvement from her last urinalysis. My independent interpretation of her chest x-ray is no acute process/normal mediastinal silhouette. COVID and influenza were negative. I think the patient appears well. She should finish out her antibiotic. I suspect she may be developing another viral illness of her respiratory system. At this time however I do not see that she needs steroids or different antibiotic. Lab Data Attestation: I reviewed the patient's lab results. Labs: Laboratory Results - last 24 hr 12/09/22 12/09/22 12:04 12:45 WBC 12.2 H RBC 3.85 L Hgb 12.4 Hct 40.4 MCV 104.9 H MCH 32.2 H MCHC 30.7 L RDW Std Deviation 62.9 H RDW Coeff of Alfredo 16.3 H Plt Count 402 MPV 9.8 Immature Gran % (Auto) 1.100 H Neut % (Auto) 70.4 H Lymph % (Auto) 14.5 L [place] % (Auto) 5.6 Eos % (Auto) 7.3 H Baso % (Auto) 1.1 H Absolute Neuts (auto) 8.6 H Absolute Lymphs (auto) 1.77 Nucleated RBC % 0 Sodium 140 Potassium 3.9 Chloride 109 H Carbon Dioxide 23.0 Anion Gap 8 BUN 9 Creatinine 1.30 H Estim Creat Clear Calc 43.71 Est GFR (MDRD) Af Amer 55 L Est GFR (MDRD) Non-Af 46 L BUN/Creatinine Ratio 6.9 L Glucose 115 H Calcium 9.4 Troponin I High Sens 7 Urine Color Yellow Urine Clarity Clear Urine pH 6.0 Ur Specific [place] 1.015 Urine Protein Negative Urine Glucose (UA) Normal Urine Ketones Negative Urine Occult Blood Negative Urine Nitrite Negative Urine Bilirubin Negative Urine Urobilinogen Normal Ur Leukocyte Esterase 100 H Urine RBC 0 SEEN Urine WBC 50-100 SEEN Ur Squamous Epith Cells 0-5 SEEN Urine Bacteria 0 SEEN Urine Mucus 0 SEEN Radiography Diagnostic Testing: Clinical Impression(s) from Imaging Studies Chest X-Ray 12/09/22 12:05 IMPRESSION: No radiographic evidence of acute cardiopulmonary disease. Electronically Signed: Keke Castle MD at 12:27 EDT , EKG Initial EKG: Attestation: I personally reviewed and interpreted this EKG as follows: Comments: Normal sinus rhythm with a ventricular rate of 72 bpm. No concerning features of ACS or ectopy Discharge Plan Triage Chief Complaint: General Illness ED Provider: Nicolás Nieves Dx/Rx/DC Orders Clinical Impression: UTI (urinary tract infection), Fatigue, Viral upper respiratory illness, Chest pain Instructions: ED Chest Pain, Noncardiac Prescriptions: No Action Ubrelvy 100 mg tablet 100 mg PO DAILY Rx Instructions: as a single dose; may repeat once in >=2 hours after first dose if needed budesonide-formoterol [Symbicort] 160-4.5 mcg/actuation HFA aerosol inhaler 2 puff INHALATION BID Nurtec ODT 75 mg tablet,disintegrating 75 mg PO ONCE gabapentin 100 mg capsule 100 mg PO TID Emgality Pen 120 mg/mL pen injector 120 mg subcut QMONTH tizanidine 4 mg tablet 4 mg PO QHS PRN (Reason: muscle relaxer) Trelegy Ellipta 100-62.5-25 mcg blister with device 1 ea INHALATION DAILY lorazepam 1 mg tablet 1 mg PO TID PRN (Reason: Anxiety) Qulipta 60 mg tablet 60 mg PO DAILY promethazine 25 mg tablet 25 mg PO Q4H PRN (Reason: nausea and vomiting) Qty: 20 0RF tramadol 50 mg tablet 50 mg PO TID Patient Comments: TAKE 1 TABLET BY MOUTH THREE TIMES DAILY FOR 28 DAYS progesterone micronized 200 mg capsule 200 mg PO DAILY Patient Comments: Take 2 capsules at bedtime ProAir RespiClick 90 mcg/actuation aerosol powdr breath activated 2 inh INHALATION 4X/DAY PRN (Reason: Shortness Of Breath) Qty: 1 0RF doxycycline monohydrate 100 mg capsule 100 mg PO BID Qty: 14 0RF cefdinir 300 mg capsule 300 mg PO BID Qty: 14 0RF citalopram 40 mg tablet 40 mg PO DAILY amlodipine 10 mg tablet 10 mg PO DAILY Qty: 90 3RF valsartan 320 mg tablet 160 mg PO BID Qty: 90 3RF levothyroxine 175 mcg tablet 175 mcg PO DAILY Qty: 30 1RF Primary Care Provider: Halina Johnson Referrals: Halina Johnson, DO [Primary Care Provider] - As Needed Disposition Disposition: Home, Self Care
--- NOTE | 2022-12-09 12:00 | ED.RN ---
Assumed care of patient.
--- NOTE | 2022-12-09 12:05 | RAD_ITS ---
INDICATION: cough EXAMINATION/TECHNIQUE: X-RAY - XR Chest 1 View COMPARISON: FINDINGS: LINES/DEVICES: None. LUNGS: No consolidation, edema or effusion. No pneumothorax. MEDIASTINUM AND CARDIOVASCULAR STRUCTURES: Cardiac silhouette not enlarged. Central airways and mediastinal contour are unremarkable. BONES AND SOFT TISSUES: Unremarkable. RAD/Chest 1 View (Portable) IMPRESSION: No radiographic evidence of acute cardiopulmonary disease. Electronically Signed: Keke Castle MD at 12:27 EDT ,
[2022-12-09 12:20] LABS: Absolute Lymphocyte Count 1.77 X10^3/uL (0.83-4.51); Absolute Neutrophil Count 8.6 X10^3/uL (2.0-7.7); Basophil# 0.13 X10^3/uL; Basophil% 1.1 % (0-1); Eosinophil# 0.89 X10^3/uL; Eosinophils% 7.3 % (0-5); Hematocrit 40.4 % (37-47); Hemoglobin 12.4 g/dL (12.0-15.0); Lymphocyte # 1.77 X10^3/ul (0.83-4.51); Lymphocyte % 14.5 % (19-41); Mean Corp Hgb Conc 30.7 g/dL (32-36); Mean Corpuscular Hgb 32.2 pg (27.0-32.0); Mean Corpuscular Volume 104.9 fL (81-99); Mean Platelet Vol. 9.8 fl (6.2-12.0); Monocyte# 0.68 X10^3/uL; Monocyte% 5.6 % (0-10); NRBC Flagged by Analyzer 0 % (0-5); Neutrophil # 8.61 X10^3/uL (2.7-7.7); Neutrophil % 70.4 % (47-70); Platelet Count 402 K/mm3 (150-450); RBC Distribution Width CV 16.3 % (11.6-14.6); RBC Distribution Width SD 62.9 fl (35.1-43.9); Red Blood Count 3.85 M/mm3 (4.2-5.4); White Blood Count 12.2 K/mm3 (4.4-11.0)
[2022-12-09 12:36] LABS: Anion Gap 8 (5-15); BUN 9 mg/dL (7-18); BUN/Creat Ratio 6.9 RATIO (10-20); Calcium,Total 9.4 mg/dL (8.5-10.1); Chloride 109 mmol/L (98-107); EST Glomerular Filtration Rate 46 mL/min (>60); Est Glom Filt Rate - Afr Amer 55 mL/min (>60); Estimated Creatinine Clearance 43.71 ml/min; Glucose 115 mg/dL (74-106); Potassium 3.9 mmol/L (3.5-5.1); Sodium Level 140 mmol/L (136-145); Troponin-I HS 7 pg/mL (3.0-54.0)
[2022-12-09 12:48] LABS: Bacteria 0 SEEN /hpf (None Seen); Mucous, Urine 0 SEEN /hpf (<or=2+); Red Blood Cells-Urine 0 SEEN /hpf (0-5)
[2022-12-09 12:53] LABS: Color, Urine Yellow (Yellow); Glucose, Dipstick Normal (Normal); Ketone-Dipstick Negative (Negative); Leukocyte Esterase-Dipstick 100 /ul (Negative); Nitrite-Dipstick Negative (Negative); Occult Blood-Urine Negative /ul (Negative); Protein-Dipstick Negative (Negative); Specific Gravity, Urine 1.015 (1.002-1.030); Urine Bilirubin Dipstick Negative (Negative); Urine Clarity Clear (Clear); Urine Urobilinogen Normal (Normal)
[2022-12-09 13:09] LABS: White Blood Cells 50-100 SEEN /hpf (0-5)
[2022-12-09 13:10] LABS: Squamous Epithelial Cells - UA 0-5 SEEN /hpf (5-10)
[2022-12-09 13:32] VITALS: PULSE 78; RESP 19; O2SAT 98
== END 2022-12-09 13:33 | disposition home or self-care (01) ==
PROVIDERS: Emergency Provider Emergency Medicine; PCP Family Medicine; Visit Provider Emergency Medicine
DX: R07.9 Chest pain, unspecified (principal); J44.9 Chronic obstructive pulmonary disease, unspecified; E11.22 Type 2 diabetes mellitus with diabetic chronic kidney disease; N39.0 Urinary tract infection, site not specified; R53.83 Other fatigue; J06.9 Acute upper respiratory infection, unspecified; N18.9 Chronic kidney disease, unspecified; I12.9 Hypertensive chronic kidney disease with stage 1 through stage 4 chronic kidney disease, or unspecified chronic kidney disease; E78.5 Hyperlipidemia, unspecified; F41.9 Anxiety disorder, unspecified; F32.A Depression, unspecified; Z79.899 Other long term (current) drug therapy; Z79.51 Long term (current) use of inhaled steroids; G43.909 Migraine, unspecified, not intractable, without status migrainosus; E03.9 Hypothyroidism, unspecified
CPT/HCPCS: 36415; 71045; 80048; 81001; 84484; 85025; 87428; 93005; 99282; A4216

== ENCOUNTER 2022-12-20 12:17 | Emergency (ER) | payer MEDICARE, MEDICAID, SELFPAY ==
[2022-12-20 12:26] VITALS: BP 146/99; PULSE 87; RESP 18; TEMP 36.8; O2SAT 94; BMI 49.1
--- NOTE | 2022-12-20 12:49 | EX.ED.DYSGE1 ---
HPI History of Present Illness Chief Complaint: Stroke Alert Informant: patient Narrative Narrative: Patient presents to triage saying that since last night she has had chest pain, lower abdominal pain, nausea, vomiting, and diarrhea. No blood in the emesis or the diarrhea. Some chills this morning like maybe she had a fever but she did not check, she just came here. She states she has had numbness and tingling in her right lower face, right upper extremity, and right lower extremity, and upon talking to the triage nurse about this a stroke team was called so I evaluated the patient emergently in triage. In doing so, the patient states that she has had the tingling on the right side for months and it is no different this morning or last night and she has developed no other new neurologic symptoms including weakness or trouble talking or trouble understanding others. She has had headaches off and on, nothing thunderclap/acute, since this illness/symptom. The chest discomfort is heaviness nonpleuritic substernal nonradiating. [facility] Medical History Abnormal glucose Anemia Anxiety Arthritis Asthma BiPAP (biphasic positive airway pressure) dependence Cardiac murmur Cardiology follow-up encounter Celiac disease Chest pain Cholelithiasis Chronic kidney disease Constipation COPD (chronic obstructive pulmonary disease) Depression Diabetes Diabetes mellitus Dietary restriction Difficulty swallowing Dyspnea on exertion Easy bruising Essential hypertension Gastric reflux GERD (gastroesophageal reflux disease) Gout History of chronic back pain History of chronic kidney disease History of echocardiogram History of edema History of pain when walking History of stress test Hydronephrosis Hyperlipidemia Hypersomnia Hypertension Hypertension Hypothyroidism Injury of head and neck Iron deficiency anemia Kidney stones Leg cramps Microcytic anemia Migraine headache Morbid obesity with BMI of 40.0-44.9, adult Non-smoker Noncompliance DAVY treated with BiPAP Post-menopausal Pulmonary embolism Restless leg syndrome Seasonal allergies Shortness of breath on exertion Syncope Thyroid disease Ureterolithiasis UTI (urinary tract infection) Vitamin B12 deficiency Vitamin D deficiency Wears glasses Home Medications citalopram 40 mg tablet 40 mg PO DAILY antidepressant/antianxiety 07/27/19 [History Last Taken 05/04/22] budesonide-formoterol HFA 160 mcg-4.5 mcg/actuation aerosol inhaler (Symbicort) 2 puff inhalation BID inhaler 04/02/20 [History Last Taken 05/04/22] ubrogepant 100 mg tablet (Ubrelvy) 100 mg PO DAILY migraines 04/02/20 [History Last Taken 05/04/22] rimegepant 75 mg disintegrating tablet (Nurtec ODT) 75 mg PO ONCE migraines 06/19/20 [History Last Taken 05/04/22] fluticasone fur. 100 mcg-umeclid 62.5 mcg-vilant 25 mcg inhalat.powder (Trelegy Ellipta) 1 ea inhalation DAILY COPD 08/14/20 [History Last Taken 05/04/22] gabapentin 100 mg capsule 100 mg PO TID neuropathy 09/30/20 [History Last Taken 05/04/22] galcanezumab-gnlm 120 mg/mL subcutaneous pen injector (Emgality Pen) 120 mg subcut QMONTH MIGRAINES 08/19/21 [History Last Taken 09/26/22] tizanidine 4 mg tablet 4 mg PO QHS PRN muscle relaxer 03/03/22 [History Last Taken 05/03/22] atogepant 60 mg tablet (Qulipta) 60 mg PO DAILY MIGRAINES 05/04/22 [History Last Taken 05/04/22] lorazepam 1 mg tablet 1 mg PO TID PRN Anxiety 05/04/22 [History Last Taken Unknown] promethazine 25 mg tablet 25 mg PO Q4H PRN nausea and vomiting #20 tabs 05/14/22 [Rx Last Taken Unknown] progesterone micronized 200 mg capsule 200 mg PO DAILY hormones 10/11/22 [History Last Taken Unknown] tramadol 50 mg tablet 50 mg PO TID pain 10/11/22 [History Last Taken Unknown] amlodipine 10 mg tablet 10 mg PO DAILY blood pressure #90 tabs 10/28/22 [Rx Last Taken Unknown] valsartan 320 mg tablet 160 mg (1/2 x 320 mg) PO BID BLOOD PRESSURE #90 tabs 10/28/22 [Rx Last Taken Unknown] albuterol sulfate 90 mcg/actuation breath activated powder inhaler (ProAir RespiClick) 2 inh inhalation 4X/DAY PRN Shortness Of Breath #1 ea 11/07/22 [Rx Last Taken Unknown] doxycycline monohydrate 100 mg capsule 100 mg PO BID #14 CAPSULES 11/12/22 [Rx Last Taken Unknown] levothyroxine 175 mcg tablet 175 mcg PO DAILY order as courtesy until pt sees PCP 11/25/22 #30 tabs 11/18/22 [Rx Last Taken Unknown] cefdinir 300 mg capsule 300 mg PO BID #14 caps 12/04/22 [Rx Last Taken Unknown] dicyclomine 10 mg capsule 20 mg (2 x 10 mg) PO Q6H PRN PRN abdominal pain #20 CAPSULES 12/20/22 [Rx Last Taken Unknown] ondansetron 4 mg disintegrating tablet 8 mg (2 x 4 mg) PO Q8H PRN PRN Nausea #20 tabs 12/20/22 [Rx Last Taken Unknown] Allergy/AdvReac Type Severity Reaction Status Date / Time hydrochlorothiazide AdvReac Intermediate Contributes Verified 12/20/22 12:28 to gout naproxen [From Naprosyn] AdvReac Intermediate Nausea Verified 12/20/22 12:28 aspirin AdvReac Nausea Verified 12/20/22 12:28 Family History Father , Age 72 Hypertension Mother CAD (coronary artery disease) Myocardial infarction, Onset Age: 55 Hypertension Sister CAD (coronary artery disease) Brother Cancer Surgical History History of History of cardiac catheterization History of carpal tunnel surgery of left wrist History of carpal tunnel surgery of right wrist History of left heart catheterization (11/11/20) history of uterine ablation Hx of cystoscopy Social History household members: none housing: apartment Smoking Status: Never smoker alcohol intake: never substance use type: does not use caffeine: No ROS ROS ED Constitutional Constitutional ED: Reports chills; Denies fever(s) Eyes Eyes: Denies change in vision or diplopia ENT ENT ED: Denies rhinorrhea or sore throat Cardiovascular Cardiovascular: Reports chest pain; Denies palpitations Respiratory/Chest Respiratory/Chest: Reports cough and dyspnea Gastrointestinal Gastrointestinal: Reports abdominal pain, diarrhea, nausea and vomiting; Denies hematemesis, hematochezia or melena Genitourinary Genitourinary ED: Denies dysuria or hematuria Musculoskeletal Musculoskeletal: Reports back pain; Denies neck pain Integumentary Denies abscess or rash Neurologic Neurologic: Reports paresthesias; Denies headache(s) or weakness Psychiatric Psychiatric: Denies anxiety or suicidal thoughts EXAM Physical Exam Const Vital Signs: 12/20/22 12:26 12/20/22 12:56 Temperature 98.3 F Temperature Source Temporal Pulse Rate 87 80 Respiratory Rate 18 21 H Blood Pressure 146/99 H 142/93 H Blood Pressure Mean 114 109 Pulse Ox 94 97 Oxygen Delivery Method Room Air Room Air Positive well nourished, well developed and obese General Appearance ED: well developed and NAD Nutritional Appearance: obese HEENT Reports moist mucous membranes normocephalic and atraumatic Eyes PERRL and EOMs intact bilaterally Neck full ROM and supple Resp normal respiratory effort and clear to auscultation bilaterally Cardio regular rate, regular rhythm and no murmurs GI non-tender and non-distended Auscultation: normoactive bowel sounds Palpation: soft Back/Spine no CVA tenderness General Back: other FROM Extremity normal to inspection General Extremety ED: Negative for edema, pulses abnormal or tenderness General Extremity: Negative for edema or pulses abnormal Neuro oriented x3 and CN's II-XII intact bilaterally Neuro Narrative: No gross sensory deficits Sensorium / Orientation: awake and alert Motor Exam: strength 5/5 throughout Psych Psych Narrative: flat affect Skin no rashes or lesions noted and no wounds MDM MDM MDM Narrative Medical decision making narrative: I canceled the stroke team, since this patient clearly is not having an acute stroke clinically, and I do not think she needs a CT for her tingling symptoms that are chronic and unchanged and the patient is in agreement. Essentially the patient's new symptoms are nausea, vomiting, diarrhea, lower abdominal pain, and chest heaviness that started within the same basic timeframe yesterday evening. While working her up with labs and EKG and chest x-ray, she was given IV fluids, Zofran, dicyclomine. She felt better on reevaluation still had all the chest discomfort. She has been having this for around 10 or 12 constant hours, with a negative troponin and a single digits and noninjurious EKG, I am comfortable saying that she is not having acute coronary syndrome causing this chest discomfort. She was additionally given a GI cocktail given the fact that esophageal etiologies in the differential diagnosis for the chest discomfort. She took one sip and refused to take the rest due to not liking the taste. Given that the patient's abdominal exam is very benign, with all the symptoms starting together, I do not suspect appendicitis is likely here. Given all of this, I recommend returning if she gets worse, but viral gastroenteritis certainly in the differential diagnosis here for all of the symptoms and benign exam, and the chest discomfort could be GI in etiology as well. Supportive care recommended with prescription for Zofran given for now. Lab Data Attestation: I reviewed the patient's lab results. Labs: Laboratory Results - last 24 hr 12/20/22 12/20/22 12:22 13:40 WBC 10.8 RBC 3.79 L Hgb 12.2 Hct 38.4 MCV 101.3 H MCH 32.2 H MCHC 31.8 L RDW Std Deviation 64.5 H RDW Coeff of Alfredo 17.2 H Plt Count 358 MPV 9.9 Immature Gran % (Auto) 1.000 H Neut % (Auto) 65.7 Lymph % (Auto) 16.5 L Mineral % (Auto) 6.5 Eos % (Auto) 9.3 H Baso % (Auto) 1.0 Absolute Neuts (auto) 7.1 Absolute Lymphs (auto) 1.77 Nucleated RBC % 0 Sodium 140 Potassium 3.6 Chloride 108 H Carbon Dioxide 25.0 Anion Gap 7 BUN 11 Creatinine 1.25 H Estim Creat Clear Calc 45.46 Est GFR (MDRD) Af Amer 58 L Est GFR (MDRD) Non-Af 48 L BUN/Creatinine Ratio 8.8 L Glucose 106 Calcium 9.2 Total Bilirubin 0.40 AST 29 ALT 28 Alkaline Phosphatase 112 Troponin I High Sens 5 Total Protein 7.5 Albumin 3.4 Globulin 4.1 Albumin/Globulin Ratio 0.8 L POC Glucose 105 Radiography Chest X-Ray - ED: 1 View, Read by ED Physician, No Acute Disease and No Infiltrates Diagnostic Testing: Clinical Impression(s) from Imaging Studies Chest X-Ray 12/20/22 13:55 IMPRESSION: Normal x-ray examination of the chest. Electronically Signed: Seun Vieira MD at 14:17 EDT , Rhythm Strip Rhythm Strip: Sinus Rhythm Rate: 77 Ectopy: None EKG Initial EKG: Attestation: I personally reviewed and interpreted this EKG as follows: Interpretation: Sinus Rhythm and No Acute Injury Pattern Comments: leftward axis Prior EKG tracings: available for review Prior: Unchanged Discharge Plan Triage Chief Complaint: Stroke Alert Other Complaint: Chest Pain Neuro S/Sx ED Provider: Ricardo Driver Dx/Rx/DC Orders Clinical Impression: Nausea, vomiting, and diarrhea, Chest pain, unspecified, Lower abdominal pain Instructions: ED Chest Pain, Uncertain Cause, ED Vomiting and Diarrhea ... Prescriptions: New dicyclomine 10 mg capsule 20 mg PO Q6H PRN PRN (Reason: abdominal pain) Qty: 20 0RF ondansetron [ondansetron] 4 mg tablet,disintegrating 8 mg PO Q8H PRN PRN (Reason: Nausea) Qty: 20 0RF No Action Ubrelvy 100 mg tablet 100 mg PO DAILY Rx Instructions: as a single dose; may repeat once in >=2 hours after first dose if needed budesonide-formoterol [Symbicort] 160-4.5 mcg/actuation HFA aerosol inhaler 2 puff INHALATION BID Nurtec ODT 75 mg tablet,disintegrating 75 mg PO ONCE gabapentin 100 mg capsule 100 mg PO TID Emgality Pen 120 mg/mL pen injector 120 mg subcut QMONTH tizanidine 4 mg tablet 4 mg PO QHS PRN (Reason: muscle relaxer) Trelegy Ellipta 100-62.5-25 mcg blister with device 1 ea INHALATION DAILY lorazepam 1 mg tablet 1 mg PO TID PRN (Reason: Anxiety) Qulipta 60 mg tablet 60 mg PO DAILY promethazine 25 mg tablet 25 mg PO Q4H PRN (Reason: nausea and vomiting) Qty: 20 0RF tramadol 50 mg tablet 50 mg PO TID Patient Comments: TAKE 1 TABLET BY MOUTH THREE TIMES DAILY FOR 28 DAYS progesterone micronized 200 mg capsule 200 mg PO DAILY Patient Comments: Take 2 capsules at bedtime ProAir RespiClick 90 mcg/actuation aerosol powdr breath activated 2 inh INHALATION 4X/DAY PRN (Reason: Shortness Of Breath) Qty: 1 0RF doxycycline monohydrate 100 mg capsule 100 mg PO BID Qty: 14 0RF cefdinir 300 mg capsule 300 mg PO BID Qty: 14 0RF citalopram 40 mg tablet 40 mg PO DAILY amlodipine 10 mg tablet 10 mg PO DAILY Qty: 90 3RF valsartan 320 mg tablet 160 mg PO BID Qty: 90 3RF levothyroxine 175 mcg tablet 175 mcg PO DAILY Qty: 30 1RF Primary Care Provider: Halina Johnson Referrals: Halina Johnson, [Primary Care Provider] - 3-5 Days if not improving Disposition Disposition: Home, Self Care
[2022-12-20 12:56] VITALS: BP 142/93; PULSE 80; RESP 21; O2SAT 97
[2022-12-20] MEDS: Ondansetron 4 MG/2 ML Vial IV (13:44)
[2022-12-20] MEDS: 0.9% Normal Saline (1000mL) 1,000 ML 1000 ML IV (13:44)
[2022-12-20] MEDS: Dicyclomine 10 MG Capsule 20 MG PO (13:45)
[2022-12-20 13:46] LABS: Absolute Lymphocyte Count 1.77 X10^3/uL (0.83-4.51); Absolute Neutrophil Count 7.1 X10^3/uL (2.0-7.7); Basophil# 0.11 X10^3/uL; Eosinophils% 9.3 % (0-5); Hematocrit 38.4 % (37-47); Hemoglobin 12.2 g/dL (12.0-15.0); Lymphocyte # 1.77 X10^3/ul (0.83-4.51); Lymphocyte % 16.5 % (19-41); Mean Corp Hgb Conc 31.8 g/dL (32-36); Mean Corpuscular Hgb 32.2 pg (27.0-32.0); Mean Corpuscular Volume 101.3 fL (81-99); Mean Platelet Vol. 9.9 fl (6.2-12.0); Monocyte% 6.5 % (0-10); NRBC Flagged by Analyzer 0 % (0-5); Neutrophil # 7.06 X10^3/uL (2.7-7.7); Neutrophil % 65.7 % (47-70); Platelet Count 358 K/mm3 (150-450); RBC Distribution Width CV 17.2 % (11.6-14.6); RBC Distribution Width SD 64.5 fl (35.1-43.9); Red Blood Count 3.79 M/mm3 (4.2-5.4); White Blood Count 10.8 K/mm3 (4.4-11.0)
--- NOTE | 2022-12-20 13:50 | ED.RN ---
DELAY IN MEDICATING DUE TO DELAY IN OBTAINING VASCULAR ACCESS. ALSO ON ENTERING THIS PATIENT'S ROOM, TELESTROKE ROBOT WAS CURRENTLY IN THE ROOM AND [facility] NEUROLOGIST DOING AN ASSESSMENT. DUE TO PATIENTS NEURO SYMPTOMS BEING APPROX 3 MONTHS ORDER MANAGEMENT SPECIALIST THERE WAS D/C OF STROKE ALERT AND NO NIH'S WERE TO BE PERFORMED. PATIENT PRESENTED TO THE ED FOR CHEST PAIN, ABD DISCOMFORT AND NAUSEA.
--- NOTE | 2022-12-20 13:55 | RAD_ITS ---
STUDY: X-RAY CHEST REASON FOR EXAM: Female, 52 years old. cp, cough, sob TECHNIQUE: Single AP portable view of the chest. COMPARISON: Comparison is made with prior study dated December 09, 2022. FINDINGS: EKG electrodes are seen. Stable mild elevation of the right hemidiaphragm. The lungs are clear. There is no demonstrated pleural abnormality. Normal size heart. Normal mediastinum and kumar. Normal visualized pulmonary arteries. Normal visualized aortic arch and descending thoracic aorta. Normal visualized thoracic spine. Normal visualized ribs, clavicles, and shoulders. There is no demonstrated abnormality of the visualized soft tissue structures of the upper abdomen. RAD/Chest 1 View (Portable) IMPRESSION: Normal x-ray examination of the chest. Electronically Signed: Seun Vieira MD at 14:17 EDT ,
[2022-12-20 14:05] LABS: ALB/GLOB Ratio 0.8 RATIO (0.9-2.4); AST(SGOT) 29 U/L (15-37); Alanine Aminotransfer ALT/SGPT 28 U/L (13-56); Albumin, Serum 3.4 g/dL (3.2-5.0); Alkaline Phosphatase 112 U/L (45-117); Anion Gap 7 (5-15); BUN 11 mg/dL (7-18); BUN/Creat Ratio 8.8 RATIO (10-20); Calcium,Total 9.2 mg/dL (8.5-10.1); Chloride 108 mmol/L (98-107); Creatinine, Serum 1.25 mg/dL (0.55-1.02); EST Glomerular Filtration Rate 48 mL/min (>60); Est Glom Filt Rate - Afr Amer 58 mL/min (>60); Estimated Creatinine Clearance 45.46 ml/min; Globulin 4.1 g/dL (2.2-4.2); Glucose 106 mg/dL (74-106); Potassium 3.6 mmol/L (3.5-5.1); Protein, Total 7.5 g/dL (6.4-8.2); Sodium Level 140 mmol/L (136-145); Troponin-I HS 5 pg/mL (3.0-54.0)
[2022-12-20 14:21] LABS: Bedside Glucose 105 mg/dL (74-106)
--- NOTE | 2022-12-20 14:51 | CHAPLAIN ---
Type of Pastoral Visit ___ Initial Visit ___ Follow-up Visit ___ On-call Visit ___ General Patient Visit ___ Spiritual Assessment ___ Family Conference ___ Bereavement _x__ Rapid Response ___ Code Blue ___ Other (describe below) Pastoral Care Referral From ___ Patient ___ Family ___ Nurse ___ Physician ___ Cigar Maker ___ Raised Printer _x__ Other (describe below) Sacrament/Intervention ___ Active listening ___ Anointing ___ Mandaen ___ Bereavement ___ Communion ___ Janina exploration ___ ___ Life review ___ Prayer ___ Reconciliation ___ Sacrament of Sick _x__ Supportive presence ___ Wedding ___ Other (describe below) Pastoral Comments responded to stroke alert; pt was in triage and being assessed by medical team; pt will continue with evaluations at this time; no family members are present; will be available as needed
[2022-12-20] MEDS: Mag Hydrox/Al Hydrox/Simeth 30 ML UDC PO (14:53)
[2022-12-20 15:00] VITALS: PULSE 86; RESP 19; O2SAT 97
[2022-12-20 15:14] VITALS: PULSE 83; RESP 20
== END 2022-12-20 15:23 | disposition home or self-care (01) ==
PROVIDERS: Emergency Provider Emergency Medicine; PCP Family Medicine; Visit Provider Emergency Medicine
DX: R11.2 Nausea with vomiting, unspecified (principal); R19.7 Diarrhea, unspecified; R07.9 Chest pain, unspecified; R10.30 Lower abdominal pain, unspecified; N18.9 Chronic kidney disease, unspecified; G47.33 Obstructive sleep apnea (adult) (pediatric); E66.9 Obesity, unspecified; Z86.711 Personal history of pulmonary embolism
CPT/HCPCS: 36415; 71045; 80053; 82962; 84484; 85025; 87811; 93005; 96361; 96374; 99283; J7030; A4216; J2405

== ENCOUNTER 2022-12-25 02:47 | Observation (INO) | payer MEDICARE, MEDICAID, SELFPAY ==
--- NOTE | 2022-12-25 02:09 | HP.PCM.HOS_ITS ---
HPI - General General Date of Admission: 12/25/22 Date of Service: 12/25/22 Chief Complaint: Chest pain HPI Narrative COURTENY CARMEN, is a 52 F with a significant history of morbid obesity; CAD; diastolic heart failure; CKD; COPD and hypothyroidism who presented to [facility] emergency department with chest pain that started about 2 hours prior to presentation. Patient chest pain is substernal. It radiates to her upper back. She described chest pain as heaviness. The chest pain was progressively worsening. And its intensity was 8 out of 10. She denies any aggravating or ameliorating factors to the chest pain. Associated with her symptoms is shortness of breath. Of note patient reports falling around October 10 of this year and ever since she has had chest pain. Also she reports having numbness of her entire right side including right face; right upper extremity and to lower extremity right lower extremity since her fall.. Emergency department doctor at [place] [facility] reported that a CTA of the chest showed coronary artery calcifications. Patient was transferred to [facility] because all were all small reportedly do not have a verse writer; and are unable to do echocardiogram or stress test on weekends. On arrival at [facility] patient reported that her chest pain had improved and it was 6 out of 10. She reports walking on the treadmill a few days back as part of pulmonary function test. Reportedly she walked about 6 minutes on a treadmill and she was really tired. Of note patient was at the emergency department on 12/20/2022 for chest pain. At that time because she also complained of right-sided numbness patient was examined for stroke. Her strokelike symptoms was deemed chronic. [facility] Medical History Abnormal glucose Anemia Anxiety Arthritis Asthma BiPAP (biphasic positive airway pressure) dependence Cardiac murmur Cardiology follow-up encounter Celiac disease Chest pain Cholelithiasis Chronic kidney disease Constipation COPD (chronic obstructive pulmonary disease) Depression Diabetes Diabetes mellitus Dietary restriction Difficulty swallowing Dyspnea on exertion Easy bruising Essential hypertension Gastric reflux GERD (gastroesophageal reflux disease) Gout History of chronic back pain History of chronic kidney disease History of echocardiogram History of edema History of pain when walking History of stress test Hydronephrosis Hyperlipidemia Hypersomnia Hypertension Hypertension Hypothyroidism Injury of head and neck Iron deficiency anemia Kidney stones Leg cramps Microcytic anemia Migraine headache Morbid obesity with BMI of 40.0-44.9, adult Non-smoker Noncompliance DAVY treated with BiPAP Post-menopausal Pulmonary embolism Restless leg syndrome Seasonal allergies Shortness of breath on exertion Syncope Thyroid disease Ureterolithiasis UTI (urinary tract infection) Vitamin B12 deficiency Vitamin D deficiency Wears glasses Home Medications citalopram 40 mg tablet 40 mg PO DAILY antidepressant/antianxiety 07/27/19 [History Last Taken 05/04/22] budesonide-formoterol HFA 160 mcg-4.5 mcg/actuation aerosol inhaler (Symbicort) 2 puff inhalation BID inhaler 04/02/20 [History Last Taken 05/04/22] ubrogepant 100 mg tablet (Ubrelvy) 100 mg PO DAILY migraines 04/02/20 [History Last Taken 05/04/22] rimegepant 75 mg disintegrating tablet (Nurtec ODT) 75 mg PO ONCE migraines 06/19/20 [History Last Taken 05/04/22] fluticasone fur. 100 mcg-umeclid 62.5 mcg-vilant 25 mcg inhalat.powder (Trelegy Ellipta) 1 ea inhalation DAILY COPD 08/14/20 [History Last Taken 05/04/22] gabapentin 100 mg capsule 100 mg PO TID neuropathy 09/30/20 [History Last Taken 05/04/22] galcanezumab-gnlm 120 mg/mL subcutaneous pen injector (Emgality Pen) 120 mg subcut QMONTH MIGRAINES 08/19/21 [History Last Taken 09/26/22] tizanidine 4 mg tablet 4 mg PO QHS PRN muscle relaxer 03/03/22 [History Last Taken 05/03/22] atogepant 60 mg tablet (Qulipta) 60 mg PO DAILY MIGRAINES 05/04/22 [History Last Taken 05/04/22] lorazepam 1 mg tablet 1 mg PO TID PRN Anxiety 05/04/22 [History Last Taken Unknown] promethazine 25 mg tablet 25 mg PO Q4H PRN nausea and vomiting #20 tabs 05/14/22 [Rx Last Taken Unknown] progesterone micronized 200 mg capsule 200 mg PO DAILY hormones 10/11/22 [History Last Taken Unknown] tramadol 50 mg tablet 50 mg PO TID pain 10/11/22 [History Last Taken Unknown] amlodipine 10 mg tablet 10 mg PO DAILY blood pressure #90 tabs 10/28/22 [Rx Last Taken Unknown] valsartan 320 mg tablet 160 mg (1/2 x 320 mg) PO BID BLOOD PRESSURE #90 tabs 10/28/22 [Rx Last Taken Unknown] albuterol sulfate 90 mcg/actuation breath activated powder inhaler (ProAir RespiClick) 2 inh inhalation 4X/DAY PRN Shortness Of Breath #1 ea 11/07/22 [Rx Last Taken Unknown] doxycycline monohydrate 100 mg capsule 100 mg PO BID #14 CAPSULES 11/12/22 [Rx Last Taken Unknown] levothyroxine 175 mcg tablet 175 mcg PO DAILY order as courtesy until pt sees PCP 11/25/22 #30 tabs 11/18/22 [Rx Last Taken Unknown] cefdinir 300 mg capsule 300 mg PO BID #14 caps 12/04/22 [Rx Last Taken Unknown] dicyclomine 10 mg capsule 20 mg (2 x 10 mg) PO Q6H PRN PRN abdominal pain #20 CAPSULES 12/20/22 [Rx Last Taken Unknown] ondansetron 4 mg disintegrating tablet 8 mg (2 x 4 mg) PO Q8H PRN PRN Nausea #20 tabs 12/20/22 [Rx Last Taken Unknown] Allergy/AdvReac Type Severity Reaction Status Date / Time hydrochlorothiazide AdvReac Intermediate Contributes Verified 12/20/22 12:28 to gout naproxen [From Naprosyn] AdvReac Intermediate Nausea Verified 12/20/22 12:28 aspirin AdvReac Nausea Verified 12/20/22 12:28 Family History Father , Age 72 Hypertension Mother CAD (coronary artery disease) Myocardial infarction, Onset Age: 55 Hypertension Sister CAD (coronary artery disease) Brother Cancer Surgical History History of History of cardiac catheterization History of carpal tunnel surgery of left wrist History of carpal tunnel surgery of right wrist History of left heart catheterization (11/11/20) history of uterine ablation Hx of cystoscopy Social History household members: none housing: apartment Smoking Status: Never smoker alcohol intake: never substance use type: does not use caffeine: No ROS ROS Narrative Pertinent positives and pertinent negatives as noted in HPI. All other systems were reviewed and are negative Physical Exam Narrative Physical exam: General: Morbidly obese Head: Normocephalic, atraumatic, no tenderness Eyes: Vision is grossly intact. EOMI ENT, no trauma, moist mucous membranes, no rhinorrhea Neck: Nontender, No thyromegaly. CVS: Regular rate and rhythm. S1-S2 present. No murmur, gallop or rub. Respiratory : clear to auscultation bilaterally, chest wall nontender Abdomen: Soft, nontender, nondistended, normal bowel sounds, no masses : Deferred Back: Nontender, no CVA tenderness Extremities: Nontender full range of motion, no trauma Skin: Normal color, no trauma, abrasions Neuro: Alert, oriented, cranial nerves II through XII grossly intact. Psychiatry: Normal mood. Normal affect. Not depressed. Not anxious. Assessment & Plan Assessment/Plan (1) Chest pain, unspecified: QUALIFIERS: Chest pain type: unspecified Qualified Code(s): R07.9 - Chest pain, unspecified PLAN: Plan Chest pain Place on a monitored bed at the progressive care unit CTA chest at our hospital with coronary calcifications. Obtain EKG. No need for high intensity troponin since troponin x2 as hospital was negative. Patient is allergic to aspirin. No pain medicine at this time as at the time of evaluation patient reported her pain at 6 but she appeared comfortable We will check lipid panel. Treadmill stress test ordered. Serial cardiac enzymes ordered Stat EKG as needed for chest pain Treadmill stress test ordered. History of diabetes Although on patient history there is diabetes patient denies it. Will get A1c. Hypertension Blood pressure is not within goal Continue home blood pressure medications when home medications are reviewed. As needed hydralazine ordered. Trend blood pressure and adjust blood pressure medications. Morbid Obesity: BMI: 50.1 kg/m?. Complicates care. Lifestyle modification kevin mmended. DVT prophylaxis : SCDs Time spent in the patient's overall evaluation,decision-making process, review of diagnostic data, adjustment of management, discussion with other providers, nursing and ancillary staff involved in patient's care documentation, 45 minutes. Charges/Coding Visit Charges Inpatient E&M: 07843 Init Hosp L2
[2022-12-25 02:19] VITALS: BMI 50.1
[2022-12-25 02:57] VITALS: PULSE 81; RESP 16; O2SAT 99
[2022-12-25 03:00] VITALS: BP 145/92; PULSE 81; RESP 16; TEMP 36.9; O2SAT 99
--- NOTE | 2022-12-25 03:05 | EKG12_ITS ---
Test Reason : AM EKG Blood Pressure : / mmHG Vent. Rate : 066 BPM Atrial Rate : 066 BPM P-R Int : 164 ms QRS Dur : 082 ms QT Int : 440 ms P-R-T Axes : 041 -09 205 degrees QTc Int : 461 ms Normal sinus rhythm ST & T wave abnormality, consider anterolateral ischemia Prolonged QT Abnormal ECG When compared with ECG of 20-DEC-2022 12:46, MANUAL COMPARISON REQUIRED, DATA IS UNCONFIRMED Confirmed by MIGUEL GONZALEZ, MAGALI ([id number]), avid editor SONJA ZABALA ([id number]) on 12/29/2022 6:32:22 AM Referred By: ITALIA Confirmed By:MAGALI RIVERA MD
[2022-12-25] MEDS: Acetaminophen 325 MG Tablet 650 MG PO (05:06)
--- NOTE | 2022-12-25 05:55 | ECHOCS_ITS ---
Reason For Study: Chest Pain Procedure This was a 2D Doppler, Color Flow transthoracic echocardiogram. Techncially difficult study due to patients body habitus. Contrast injection performed. The study was technically difficult. Exam performed in department. Left Ventricle Normal size and thickness. The left ventricular ejection fraction is 65 %. No evidence for diastolic dysfunction. Right Ventricle Normal RV size. Mild hypertrophy of the right ventricle. Normal systolic function. Atria The left and right atria are normal. Mitral Valve Normal mitral valve. Tricuspid Valve The tricuspid valve is not well visualized. Aortic Valve Trisinus/trileaflet aortic valve. Pulmonic Valve The pulmonic valve is not well visualized. Great Vessels Normal sized aortic root. Pericardium/Pleural Trivial pericardial effusion. Medication Diluted definity 5ml given slow IV push to enhance endocardial definition. MMode/2D Measurements & Calculations LVIDd: 4.2 cm IVSd: 0.81 cm Ao root diam: 3.5 cm LVIDs: 3.1 cm LVPWd: 0.95 cm LA dimension: 3.5 cm FS: 26.8 % LAV(MOD-bp): 27.8 ml LVAd ap4: 27.8 cm2 SV(MOD-sp4): 51.0 ml LAV(MOD-bp) Indexed: 12.1 ml/m2 LVLd ap4: 7.6 cm LAV(MOD-sp2): 33.6 ml EDV(MOD-sp4): 83.4 ml LAV(MOD-sp4): 23.6 ml EDV(sp4-el): 86.3 ml LVAs ap4: 14.6 cm2 LVLs ap4: 5.6 cm ESV(MOD-sp4): 32.4 ml ESV(sp4-el): 32.1 ml EF(MOD-sp4): 61.2 % EF(sp4-el): 62.8 % SV(sp4-el): 54.2 ml LA A4 area: 12.8 cm2 RA A4 area: 11.3 cm2 TAPSE: 1.2 cm Time Measurements MV dec time: 0.24 sec Doppler Measurements & Calculations MV E max abdoul: 70.9 cm/sec Lat Peak E' Abdoul: 7.7 cm/sec Med Peak E' Abdoul: 7.4 cm/sec MV A max abdoul: 65.0 cm/sec E/E' lat: 9.2 E/E' med: 9.6 MV E/A: 1.1 MV V2 max: 80.3 cm/sec MV P1/2t max abdoul: 80.0 cm/sec Ao V2 max: 121.4 cm/sec MV max P.6 mmHg MV P1/2t: 82.1 msec Ao max P.9 mmHg MV V2 mean: 46.2 cm/sec Ao V2 mean: 78.1 cm/sec MV mean P.0 mmHg MV dec slope: 285.2 cm/sec2 Ao mean P.9 mmHg MV V2 VTI: 26.4 cm MVA(P1/2t): 2.7 cm2 Ao V2 VTI: 22.2 cm AV (velocity ratio): 0.88 LV V1 max: 89.5 cm/sec PA V2 max: 82.1 cm/sec LV V1 max P.2 mmHg LV V1 mean P.5 mmHg LV V1 mean: 57.0 cm/sec LV V1 VTI: 19.4 cm ECHO/Echo Complete W/ Contrast Interpretation Summary The left ventricular ejection fraction is 65 %. No evidence for diastolic dysfunction. Mild hypertrophy of the right ventricle. Trivial pericardial effusion. The study was technically difficult. Ordering Physician: Ahsan Maurer Referring Physician: Halina Johnson Performed By: Florin Whittington RCS
[2022-12-25 07:06] LABS: Absolute Lymphocyte Count 2.01 X10^3/uL (0.83-4.51); Absolute Neutrophil Count 9.3 X10^3/uL (2.0-7.7); Basophil# 0.14 X10^3/uL; Basophil% 1.1 % (0-1); Eosinophil# 0.19 X10^3/uL; Eosinophils% 1.5 % (0-5); Hematocrit 36.6 % (37-47); Hemoglobin 11.6 g/dL (12.0-15.0); Lymphocyte # 2.01 X10^3/ul (0.83-4.51); Lymphocyte % 15.7 % (19-41); Mean Corp Hgb Conc 31.7 g/dL (32-36); Mean Corpuscular Hgb 32.3 pg (27.0-32.0); Mean Corpuscular Volume 101.9 fL (81-99); Monocyte# 0.99 X10^3/uL; Monocyte% 7.7 % (0-10); NRBC Flagged by Analyzer 0 % (0-5); Neutrophil # 9.29 X10^3/uL (2.7-7.7); Neutrophil % 72.5 % (47-70); POSITIVE MORPHOLOGY YES; Platelet Count 409 K/mm3 (150-450); RBC Distribution Width CV 17.3 % (11.6-14.6); RBC Distribution Width SD 65.9 fl (35.1-43.9); Red Blood Count 3.59 M/mm3 (4.2-5.4); White Blood Count 12.8 K/mm3 (4.4-11.0)
[2022-12-25 07:12] LABS: Differential Indicated SCAN CRITERIA MET
[2022-12-25 07:41] LABS: BNP,B-Type NATRIURETIC PEPTIDE 19.2 pg/mL (0-100)
[2022-12-25 07:43] LABS: Anion Gap 4 (5-15); BUN 14 mg/dL (7-18); BUN/Creat Ratio 11.9 RATIO (10-20); Chloride 104 mmol/L (98-107); Cholesterol 258 mg/dL (200); Creatinine, Serum 1.18 mg/dL (0.55-1.02); EST Glomerular Filtration Rate 51 mL/min (>60); Est Glom Filt Rate - Afr Amer 62 mL/min (>60); Estimated Creatinine Clearance 48.16 ml/min; Glucose 104 mg/dL (74-106); High Density Lipoprotein 53 mg/dL; Sodium Level 136 mmol/L (136-145); Triglycerides 133 mg/dL; Very Low Density Lipoprotein 27 mg/dL (5-40)
[2022-12-25 07:49] LABS: Hemoglobin A1c 6.2 % (3.8-5.6)
--- NOTE | 2022-12-25 08:53 | PN.HOSP_ITS ---
Reason for Visit Reason for Visit: Diagnoses Chest pain, unspecified (12/25/22) Subjective Subjective Patient states that she has been having back and chest pain since September. This happened after an event where she was going down some stairs and there is no handrail and then she fell landing flat on her back. She has been having back pain as well as chest pain. Is worse when she takes a deep respiration. Objective Data Objective Data Vital Signs: Vital Signs Temp Pulse Resp BP Pulse Ox O2 Del Method 36.9 C 81 16 145/92 H 99 Room Air 12/25/22 03:00 12/25/22 03:00 12/25/22 03:00 12/25/22 03:00 12/25/22 03:00 12/25/22 03:00 Oxygen Delivery Method Room Air Weight: 132.5 kg Body Mass Index (BMI) 50.1 Lab / Micro Data 12/25/22 06:37 12/25/22 06:37 Labs: Laboratory Results - last 24 hr 12/25/22 06:37: WBC 12.8 H, RBC 3.59 L, Hgb 11.6 L, Hct 36.6 L, MCV 101.9 H, MCH 32.3 H, MCHC 31.7 L, RDW Std Deviation 65.9 H, RDW Coeff of Alfredo 17.3 H, Plt Count 409, MPV 10.0, Immature Gran % (Auto) 1.500 H, Neut % (Auto) 72.5 H, Lymph % (Auto) 15.7 L, [place] % (Auto) 7.7, Eos % (Auto) 1.5, Baso % (Auto) 1.1 H, Absolute Neuts (auto) 9.3 H, Absolute Lymphs (auto) 2.01, Nucleated RBC % 0, Sodium 136, Potassium 4.0, Chloride 104, Carbon Dioxide 28.0, Anion Gap 4 L, BUN 14, Creatinine 1.18 H, Estim Creat Clear Calc 48.16, Est GFR (MDRD) Af Amer 62, Est GFR (MDRD) Non-Af 51 L, BUN/Creatinine Ratio 11.9, Glucose 104, Hemoglobin A1c 6.2 H, Calcium 9.0, B-Natriuretic Peptide 19.2, Triglycerides 133, Cholesterol 258 H, LDL Cholesterol 178 H, VLDL Cholesterol 27, HDL Cholesterol 53 Physical Exam Narrative Reproducible back as well as midsternal chest pain. Const alert and no apparent distress Assessment & Plan Assessment/Plan (1) Chest pain, unspecified: QUALIFIERS: Chest pain type: unspecified Qualified Code(s): R07.9 - Chest pain, unspecified PLAN: Noncardiac. Due to costochondritis. Secondary to a fall that she orozco stained back in September when she landed flat on her back. Trops negative Stress negative. 2D echocardiogram negative. (2) Hyperlipidemia: PLAN: Cholesterol 258 and LDL 78. Start atorvastatin 80. PLAN: Plan Chronic conditions: * DM2. A1c 6.2 * HTN: fair control. continue amlodipine, losartan, * depression: continue citalopram * morbid obesity: BMI 50.1 kg/m?. Weight loss strongly recommended DVT prophylaxis : SCDs Discharge home.
[2022-12-25 09:10] VITALS: BP 132/86; PULSE 66; RESP 16; TEMP 36; O2SAT 97
[2022-12-25] MEDS: Ondansetron 4 MG/2 ML Vial IV (09:19)
[2022-12-25] MEDS: amLODIPine 10 MG Tablet PO (09:20)
[2022-12-25] MEDS: Losartan Potassium 100 MG Tablet PO (09:20)
[2022-12-25] MEDS: Citalopram 40 MG TABLET PO (09:20)
[2022-12-25] MEDS: Levothyroxine 175 MCG Tablet PO (09:20)
[2022-12-25 09:48] LABS: Bedside Glucose 102 mg/dL (74-106)
[2022-12-25 10:11] LABS: Anisocytosis 2+; Differential Comment SCANNED; Macrocytosis 1+; Microcytosis 1+
--- NOTE | 2022-12-25 12:19 | STRESSREP ---
Stress Test Report Date: 12/25/2022 Procedure: Pharmacologic stress nuclear imaging study Indications: Chest pain Consent: Per the patient Procedure: The patient underwent pharmacologic (Regadenoson 0.4mg ) evaluation with a peak heart rate of 104 beats per minute (61%predicted maximal heart rate) and a peak blood pressure of 132/80 mmHg. The baseline ECG demonstrated sinus rhythm with nonspecific changes. The peak pharmacologic ECG demonstrated no diagnostic ischemic changes. There were no cardiac dysrhythmias pretest, during pharmacologic infusion, or recovery. There was no complaint of chest discomfort during pharmacologic infusion or recovery. The patient was injected with 15.0 millicuries of technetium 99m Cardiolite and subsequently rest SPECT Cardiolite nuclear imaging was obtained in the horizontal long, vertical long, and short axis views. The patient underwent pharmacologic (Regadenoson) evaluation. The patient was injected with 45.0 millicuries of technetium 99m Cardiolite and subsequently stress SPECT Cardiolite nuclear imaging was obtained in the horizontal long, vertical long, and short axis views. A gated Cardiolite study at peak stress was obtained. The examination was stopped secondary to completion of protocol. Rest and stress SPECT Cardiolite nuclear imaging status post realignment, normalization, and attenuation correction demonstrate mildly reduced perfusion at the apex both at rest as well as poststress. Likely attenuation artifact. There is end systolic thickening and brightening. The gated Cardiolite study demonstrates myocardial thickening and inward wall motion. The reported LVEF is 73%. Impression: 1. Pharmacologic (Regadenoson) evaluation 2. Peak pharmacologic ECG with no diagnostic ischemic changes. 3. There were no cardiac dysrhythmias pretest, during pharmacologic infusion, or recovery. 5. No reversible perfusion defects. 6. The gated Cardiolite study reports an LVEF of 73%. This note was generated with [employer] software. It may contain incorrect words, spelling, and punctuation that were not noted in checking the note before signing.
--- NOTE | 2022-12-25 12:29 | DS.PCM_ITS ---
Providers Date of Admission: 12/25/22 Primary Care Physician: Halina Johnson DO Reason For Visit: CHEST PAIN Diagnosis Discharge Diagnosis (1) Chest pain, unspecified: Status: Acute Code(s): R07.9 - Chest pain, unspecified Qualifiers: Chest pain type: unspecified Qualified Code(s): R07.9 - Chest pain, unspecified Plan: Noncardiac. Due to costochondritis. Secondary to a fall that she sustained back in September when she landed flat on her back. Trops negative Stress negative. 2D echocardiogram negative. (2) Hyperlipidemia: Status: Chronic Code(s): E78.5 - Hyperlipidemia, unspecified Plan: Cholesterol 258 and LDL 78. Start atorvastatin 80. Plan Chronic conditions: * DM2. A1c 6.2 * HTN: fair control. continue amlodipine, losartan, * depression: continue citalopram * morbid obesity: BMI 50.1 kg/m?. Weight loss strongly recommended DVT prophylaxis : SCDs Discharge home. Medications at Discharge Home Medications citalopram 40 mg tablet 40 mg PO DAILY antidepressant/antianxiety 07/27/19 budesonide-formoterol HFA 160 mcg-4.5 mcg/actuation aerosol inhaler (Symbicort) 2 puff inhalation BID inhaler 04/02/20 ubrogepant 100 mg tablet (Ubrelvy) 100 mg PO DAILY migraines 04/02/20 rimegepant 75 mg disintegrating tablet (Nurtec ODT) 75 mg PO ONCE migraines 06/19/20 fluticasone fur. 100 mcg-umeclid 62.5 mcg-vilant 25 mcg inhalat.powder (Trelegy Ellipta) 1 ea inhalation DAILY COPD 08/14/20 gabapentin 100 mg capsule 100 mg PO TID neuropathy 09/30/20 galcanezumab-gnlm 120 mg/mL subcutaneous pen injector (Emgality Pen) 120 mg subcut QMONTH MIGRAINES 08/19/21 tizanidine 4 mg tablet 4 mg PO QHS PRN muscle relaxer 03/03/22 atogepant 60 mg tablet (Qulipta) 60 mg PO DAILY MIGRAINES 05/04/22 lorazepam 1 mg tablet 1 mg PO TID PRN Anxiety 05/04/22 promethazine 25 mg tablet 25 mg PO Q4H PRN nausea and vomiting #20 tabs 05/14/22 progesterone micronized 200 mg capsule 200 mg PO DAILY hormones 10/11/22 tramadol 50 mg tablet 50 mg PO TID pain 10/11/22 amlodipine 10 mg tablet 10 mg PO DAILY blood pressure #90 tabs 10/28/22 valsartan 320 mg tablet 160 mg (1/2 x 320 mg) PO BID BLOOD PRESSURE #90 tabs 10/28/22 albuterol sulfate 90 mcg/actuation breath activated powder inhaler (ProAir RespiClick) 2 inh inhalation 4X/DAY PRN Shortness Of Breath #1 ea 11/07/22 doxycycline monohydrate 100 mg capsule 100 mg PO BID #14 CAPSULES 11/12/22 levothyroxine 175 mcg tablet 175 mcg PO DAILY order as courtesy until pt sees PCP 11/25/22 #30 tabs 11/18/22 cefdinir 300 mg capsule 300 mg PO BID #14 caps 12/04/22 dicyclomine 10 mg capsule 20 mg (2 x 10 mg) PO Q6H PRN PRN abdominal pain #20 CAPSULES 12/20/22 ondansetron 4 mg disintegrating tablet 8 mg (2 x 4 mg) PO Q8H PRN PRN Nausea #20 tabs 12/20/22 albuterol sulfate 90 mcg/actuation aerosol inhaler 2 puff inhalation Q4H PRN shortness of breath or wheezing 12/25/22 atorvastatin 80 mg tablet 80 mg PO QHS #30 tabs 12/25/22 Hospital Course Operations None Procedures 2-D Echocardiogram and Stress test Summary of Care Provided Hospital Course: Patient presents with couple month history of chest and back pain. Patient had troponins were normal and a stress test and 2D echocardiogram was unremarkable. Exam is consistent with reproducible chest pain likely due to costochondritis. Patient had event where she fell off some stairs landing on her back that seem to be the source of this pain. No acute additional work-up is necessary. Reassurance was provided. Patient be discharged home in stable condition. Weight / BMI Weight Weight: 132.5 kg Body Mass Index (BMI) 50.1 ABG / Lab / Microbiology Data 12/25/22 06:37 12/25/22 06:37 Laboratory: Laboratory Results - last 24 hr 12/25/22 06:37: WBC 12.8 H, RBC 3.59 L, Hgb 11.6 L, Hct 36.6 L, MCV 101.9 H, MCH 32.3 H, MCHC 31.7 L, RDW Std Deviation 65.9 H, RDW Coeff of Alfredo 17.3 H, Plt C ount 409, MPV 10.0, Immature Gran % (Auto) 1.500 H, Neut % (Auto) 72.5 H, Lymph % (Auto) 15.7 L, [place] % (Auto) 7.7, Eos % (Auto) 1.5, Baso % (Auto) 1.1 H, Absolute Neuts (auto) 9.3 H, Absolute Lymphs (auto) 2.01, Nucleated RBC % 0, Differential Comment SCANNED, Anisocytosis 2+, Microcytosis 1+, Macrocytosis 1+, Sodium 136, Potassium 4.0, Chloride 104, Carbon Dioxide 28.0, Anion Gap 4 L, BUN 14, Creatinine 1.18 H, Estim Creat Clear Calc 48.16, Est GFR (MDRD) Af Amer 62, Est GFR (MDRD) Non-Af 51 L, BUN/Creatinine Ratio 11.9, Glucose 104, Hemoglobin A1c 6.2 H, Calcium 9.0, B-Natriuretic Peptide 19.2, Triglycerides 133, Cholesterol 258 H, LDL Cholesterol 178 H, VLDL Cholesterol 27, HDL Cholesterol 53 12/25/22 09:28: POC Glucose 102 Radiography Diagnostic Testing: Radiology Impression Echocardiogram 12/25/22 05:55 Interpretation Summary The left ventricular ejection fraction is 65 %. No evidence for diastolic dysfunction. Mild hypertrophy of the right ventricle. Trivial pericardial effusion. The study was technically difficult. Ordering Physician: Ahsan Maruer Referring Physician: Halina Johnson Performed By: Florin Whittington RCS D/C Instructions Discharge Diet: Low fat / Low cholesterol Meaningful Use Info Meaningful Use Diagnoses (Choose all that apply): None applicable Discharge Plan Admission Admit Date/Time: 12/25/22 02:47 Primary Reason for Your Visit: Chest pain Attending Provider: Anam Roldan Primary Care Provider: Halina Johnson Consulting Providers: Ahsan Maurer Instructions Additional Instructions / Restrictions: You had chest pain and underwent a work-up including a stress test and echocardiogram. Your cardiac work-up was all normal. Your chest pain is likely due to the fall that he sustained back in September. Is likely ribs are musculoskeletal. As needed acetaminophen. Avoid taking ibuprofen or Naprosyn given your chronic kidney disease. Your cholesterol level is extremely high and do recommend that you go on cholesterol medication and prescription has been sent to your pharmacy for atorvastatin. Discharge Orders/Prescriptions Prescriptions: New atorvastatin 80 mg Tablet 80 mg PO QHS Qty: 30 0RF Continued Ubrelvy 100 mg tablet 100 mg PO DAILY Rx Instructions: as a single dose; may repeat once in >=2 hours after first dose if needed budesonide-formoterol [Symbicort] 160-4.5 mcg/actuation HFA aerosol inhaler 2 puff INHALATION BID Nurtec ODT 75 mg tablet,disintegrating 75 mg PO ONCE gabapentin 100 mg capsule 100 mg PO TID Emgality Pen 120 mg/mL pen injector 120 mg subcut QMONTH tizanidine 4 mg tablet 4 mg PO QHS PRN (Reason: muscle relaxer) Trelegy Ellipta 100-62.5-25 mcg blister with device 1 ea INHALATION DAILY lorazepam 1 mg tablet 1 mg PO TID PRN (Reason: Anxiety) Qulipta 60 mg tablet 60 mg PO DAILY promethazine 25 mg tablet 25 mg PO Q4H PRN (Reason: nausea and vomiting) Qty: 20 0RF tramadol 50 mg tablet 50 mg PO TID Patient Comments: TAKE 1 TABLET BY MOUTH THREE TIMES DAILY FOR 28 DAYS progesterone micronized 200 mg capsule 200 mg PO DAILY Patient Comments: Take 2 capsules at bedtime ProAir RespiClick 90 mcg/actuation aerosol powdr breath activated 2 inh INHALATION 4X/DAY PRN (Reason: Shortness Of Breath) Qty: 1 0RF doxycycline monohydrate 100 mg capsule 100 mg PO BID Qty: 14 0RF Hold Instructions: not taking albuterol sulfate 90 mcg/actuation HFA aerosol inhaler 2 puff inhalation Q4H PRN (Reason: shortness of breath or wheezing) Patient Comments: Two puffs every four hours as needed cefdinir 300 mg capsule 300 mg PO BID Qty: 14 0RF Hold Instructions: not taking dicyclomine 10 mg capsule 20 mg PO Q6H PRN PRN (Reason: abdominal pain) Qty: 20 0RF ondansetron 4 mg tablet,disintegrating 8 mg PO Q8H PRN PRN (Reason: Nausea) Qty: 20 0RF citalopram 40 mg tablet 40 mg PO DAILY amlodipine 10 mg tablet 10 mg PO DAILY Qty: 90 3RF valsartan 320 mg tablet 160 mg PO BID Qty: 90 3RF levothyroxine 175 mcg tablet 175 mcg PO DAILY Qty: 30 1RF Referrals / Follow Up: Halina Johnson DO [Primary Care Provider] - Charges/Coding Visit Charges Inpatient E&M: 47414 Disch Hosp
[2022-12-25 12:58] LABS: Bedside Glucose 109 mg/dL (74-106)
[2022-12-25 13:23] VITALS: BP 109/66; PULSE 81; RESP 16; TEMP 36.4; O2SAT 97
[2022-12-25] MEDS: traMADol 50 MG Tablet PO (13:29)
[2022-12-25] MEDS: Gabapentin 100 MG Capsule PO (13:29)
[2022-12-25 13:55] VITALS: PULSE 84; RESP 18; O2SAT 96
[2022-12-25] MEDS: Ipratropium/Albuterol Sulfate 3 ML AMPUL.NEB INHALATION (13:55)
[2022-12-25] MEDS: tiZANidine HCl 2 MG Tablet 4 MG PO (14:32)
== END 2022-12-25 14:12 | disposition home or self-care (01) ==
PROVIDERS: Admitting Provider Hospitalist; PCP Family Medicine
DX: R07.89 Other chest pain (principal); J44.9 Chronic obstructive pulmonary disease, unspecified; E11.22 Type 2 diabetes mellitus with diabetic chronic kidney disease; E66.01 Morbid (severe) obesity due to excess calories; Z68.43 Body mass index [BMI] 50.0-59.9, adult; I12.9 Hypertensive chronic kidney disease with stage 1 through stage 4 chronic kidney disease, or unspecified chronic kidney disease; I25.10 Atherosclerotic heart disease of native coronary artery without angina pectoris; G89.29 Other chronic pain; Z79.51 Long term (current) use of inhaled steroids; N18.9 Chronic kidney disease, unspecified; E78.5 Hyperlipidemia, unspecified; Z79.891 Long term (current) use of opiate analgesic; E03.9 Hypothyroidism, unspecified; K21.9 Gastro-esophageal reflux disease without esophagitis; Z79.899 Other long term (current) drug therapy; Z79.890 Hormone replacement therapy; F32.A Depression, unspecified; R94.31 Abnormal electrocardiogram [ECG] [EKG]; R06.02 Shortness of breath
CPT/HCPCS: 36415; 78452; 80048; 80061; 82962; 83036; 83880; 85025; 93005; 93017; 93306; 94640; 96374; 99221; A9500; Q9957; A4216; C8929; G0378; G0379; J2405

== ENCOUNTER 2023-01-02 10:57 | Emergency (ER) | payer MEDICARE, MEDICAID, SELFPAY ==
[2023-01-02 11:00] VITALS: BP 147/105; PULSE 80; RESP 18; TEMP 35.9; O2SAT 99; BMI 48.4
--- NOTE | 2023-01-02 11:14 | EKG12_ITS ---
Test Reason : SOB Blood Pressure : / mmHG Vent. Rate : 077 BPM Atrial Rate : 077 BPM P-R Int : 148 ms QRS Dur : 084 ms QT Int : 352 ms P-R-T Axes : 071 038 201 degrees QTc Int : 398 ms Normal sinus rhythm Low voltage QRS Nonspecific ST and T wave abnormality Abnormal ECG Confirmed by CHAR GONZALEZ, RADHA ([id number]), associate editor SONJA ZABALA ([id number]) on 01/10/2023 7:07:15 AM Referred By: Confirmed By:TODD PARDO MD
--- NOTE | 2023-01-02 11:16 | CT_ITS ---
INDICATION: Pain EXAMINATION: CT ABDOMEN AND PELVIS WITHOUT CONTRAST - CT Abdomen And Pelvis W/O Contrast Injection TECHNIQUE: Helically acquired images were obtained of the abdomen and pelvis without oral or IV contrast. A radiation dose optimization technique was used for this scan. IV Contrast dosage and agent: None. Oral contrast: None. RADIATION DOSAGE (If Supplied By Facility): CTDIvol = ( 34.28 ) mGy, DLP = ( 1738.29 ) mGycm COMPARISON: Prior study dated: 12/24/2022 FINDINGS: LOWER CHEST: Minimal right lower lung atelectasis. No cardiomegaly or pericardial effusion. LIVER: Homogeneous. No focal mass is seen without contrast. GALLBLADDER AND BILIARY TREE: No calcified gallstones. No gallbladder distension or wall edema. No intra- or extrahepatic biliary ductal dilation. PANCREAS: No focal cystic or solid mass. SPLEEN: Normal size without focal cystic or solid mass. ADRENAL GLANDS: No nodules. KIDNEYS AND URETERS: Bilateral parapelvic cysts unchanged. Tiny calcifications/nonobstructing stones unchanged. No hydronephrosis. PERITONEUM: No ascites or free air. No other fluid collection. BOWEL: The appendix is not visualized. Redundant mobile colon. The cecum now extends to the right upper quadrant lateral to the liver. Fecal retention concerning for constipation. No stomach or bowel distension. No focal inflammatory change. LYMPH NODES: No enlarged mesenteric or retroperitoneal lymph nodes. VESSELS: Atherosclerotic calcifications of the abdominal aorta without evidence of aneurysm. URINARY BLADDER: Unremarkable. REPRODUCTIVE ORGANS: No pelvic masses. ABDOMINAL WALL: No discrete abdominal or pelvic wall hernia. BONES: No lytic or blastic abnormality. CT/Abdomen/Pelvis without Cont IMPRESSION: 1. No focal acute inflammatory process. 2. Fecal retention. 3. Punctate nonobstructing renal stones without evidence of hydronephrosis. Electronically Signed: Fredrick Sharpe MD at 12:32 EST ,
--- NOTE | 2023-01-02 11:16 | EX.ED.DYSGE1 ---
HPI <JAMES Miguel - Last Filed: 01/02/23 15:54> History of Present Illness Chief Complaint: Shortness of Breath Narrative Narrative: Patient is a 52-year-old female with history of morbid obesity COPD chronic kidney disease hypertension diabetes hyperlipidemia hypothyroidism who presents to the emergency department for multiple complaints. Patient states she is mostly here because she feels generalized sickness. Patient dates she has nausea, vomiting, generalized abdominal cramping. States has been battling constipation for the last 2 weeks. She was seen here on December 25 for similar complaints. Patient also complains of a lesion to the back of her neck that is causing her pain. She denies any fever or chills, she denies any blood in her stool or vomit. She denies any chest pain. She does complain of numbness and tingling to the right side of her face, right arm however this is been ongoing for multiple months. This was documented on December 25, 2022 as well. [facility] <JAMES Miguel - Last Filed: 01/02/23 15:54> [facility] Medical History Abnormal glucose Anemia Anxiety Arthritis Asthma BiPAP (biphasic positive airway pressure) dependence Cardiac murmur Cardiology follow-up encounter Celiac disease Chest pain Cholelithiasis Chronic kidney disease Constipation COPD (chronic obstructive pulmonary disease) Depression Diabetes Diabetes mellitus Dietary restriction Difficulty swallowing Dyspnea on exertion Easy bruising Essential hypertension Gastric reflux GERD (gastroesophageal reflux disease) Gout History of chronic back pain History of chronic kidney disease History of echocardiogram History of edema History of pain when walking History of stress test Hydronephrosis Hyperlipidemia Hypersomnia Hypertension Hypertension Hypothyroidism Injury of head and neck Iron deficiency anemia Kidney stones Leg cramps Microcytic anemia Migraine headache Morbid obesity with BMI of 40.0-44.9, adult Non-smoker Noncompliance DAVY treated with BiPAP Post-menopausal Pulmonary embolism Restless leg syndrome Seasonal allergies Shortness of breath on exertion Syncope Thyroid disease Ureterolithiasis UTI (urinary tract infection) Vitamin B12 deficiency Vitamin D deficiency Wears glasses Home Medications citalopram 40 mg tablet 40 mg PO DAILY antidepressant/antianxiety 07/27/19 [History Last Taken 05/04/22] budesonide-formoterol HFA 160 mcg-4.5 mcg/actuation aerosol inhaler (Symbicort) 2 puff inhalation BID inhaler 04/02/20 [History Last Taken 05/04/22] ubrogepant 100 mg tablet (Ubrelvy) 100 mg PO DAILY migraines 04/02/20 [History Last Taken 05/04/22] rimegepant 75 mg disintegrating tablet (Nurtec ODT) 75 mg PO ONCE migraines 06/19/20 [History Last Taken 05/04/22] fluticasone fur. 100 mcg-umeclid 62.5 mcg-vilant 25 mcg inhalat.powder (Trelegy Ellipta) 1 ea inhalation DAILY COPD 08/14/20 [History Last Taken 05/04/22] gabapentin 100 mg capsule 100 mg PO TID neuropathy 09/30/20 [History Last Taken 05/04/22] galcanezumab-gnlm 120 mg/mL subcutaneous pen injector (Emgality Pen) 120 mg subcut QMONTH MIGRAINES 08/19/21 [History Last Taken 09/26/22] tizanidine 4 mg tablet 4 mg PO QHS PRN muscle relaxer 03/03/22 [History Last Taken 05/03/22] atogepant 60 mg tablet (Qulipta) 60 mg PO DAILY MIGRAINES 05/04/22 [History Last Taken 05/04/22] lorazepam 1 mg tablet 1 mg PO TID PRN Anxiety 05/04/22 [History Last Taken Unknown] promethazine 25 mg tablet 25 mg PO Q4H PRN nausea and vomiting #20 tabs 05/14/22 [Rx Last Taken Unknown] progesterone micronized 200 mg capsule 200 mg PO DAILY hormones 10/11/22 [History Last Taken Unknown] tramadol 50 mg tablet 50 mg PO TID pain 10/11/22 [History Last Taken Unknown] amlodipine 10 mg tablet 10 mg PO DAILY blood pressure #90 tabs 10/28/22 [Rx Last Taken Unknown] valsartan 320 mg tablet 160 mg (1/2 x 320 mg) PO BID BLOOD PRESSURE #90 tabs 10/28/22 [Rx Last Taken Unknown] albuterol sulfate 90 mcg/actuation breath activated powder inhaler (ProAir RespiClick) 2 inh inhalation 4X/DAY PRN Shortness Of Breath #1 ea 11/07/22 [Rx Last Taken Unknown] doxycycline monohydrate 100 mg capsule 100 mg PO BID #14 CAPSULES 11/12/22 [Rx Last Taken Unknown] levothyroxine 175 mcg tablet 175 mcg PO DAILY order as courtesy until pt sees PCP 11/25/22 #30 tabs 11/18/22 [Rx Last Taken Unknown] cefdinir 300 mg capsule 300 mg PO BID #14 caps 12/04/22 [Rx Last Taken Unknown] dicyclomine 10 mg capsule 20 mg (2 x 10 mg) PO Q6H PRN PRN abdominal pain #20 CAPSULES 12/20/22 [Rx Last Taken Unknown] ondansetron 4 mg disintegrating tablet 8 mg (2 x 4 mg) PO Q8H PRN PRN Nausea #20 tabs 12/20/22 [Rx Last Taken Unknown] albuterol sulfate 90 mcg/actuation aerosol inhaler 2 puff inhalation Q4H PRN shortness of breath or wheezing 12/25/22 [History Last Taken Unknown] atorvastatin 80 mg tablet 80 mg PO QHS #30 tabs 12/25/22 [Rx Last Taken Unknown] magnesium citrate (Citroma oral solution) 300 ml PO DAILY PRN constipation #296 mL 01/02/23 [Rx Last Taken Unknown] Allergy/AdvReac Type Severity Reaction Status Date / Time hydrochlorothiazide AdvReac Intermediate Contributes Verified 01/02/23 11:00 to gout naproxen [From Naprosyn] AdvReac Intermediate Nausea Verified 01/02/23 11:00 aspirin AdvReac Nausea Verified 01/02/23 11:00 Family History Father , Age 72 Hypertension Mother CAD (coronary artery disease) Myocardial infarction, Onset Age: 55 Hypertension Sister CAD (coronary artery disease) Brother Cancer Surgical History History of History of cardiac catheterization History of carpal tunnel surgery of left wrist History of carpal tunnel surgery of right wrist History of left heart catheterization (11/11/20) history of uterine ablation Hx of cystoscopy Social History household members: none housing: apartment Smoking Status: Never smoker alcohol intake: never substance use type: does not use caffeine: No ROS <JAMES Miguel Last Filed: 01/02/23 15:54> ROS ED ROS Narrative Constitutional: Negative for fever, chills, weight loss. Positive for weakness Eyes: Negative for vision loss, vision change, double vision ENT: Negative for any sore throat, ear pain, congestion Cardiovascular: Negative for any chest pain, tightness, palpitations Respiratory: Negative for any cough, sputum production, hemoptysis, dyspnea, dyspnea on exertion, orthopnea Gastrointestinal: Negative for any diarrhea, blood in stool, blood in vomit. Positive for abdominal pain, nausea and vomiting, constipation : Negative for any dysuria, retention, blood in urine. Positive for urinary frequency, urinary incontinence when on her way to the bathroom. Muscle skeletal: Negative for any muscle joint pain, stiffness, myalgias, arthralgias, neck pain, back pain Neurological: Negative for any headache, syncope, numbness or tingling, dizziness Skin: Negative for any rashes, lumps, itching, abrasions, lacerations. Positive for lesion to the posterior neck Psychiatric: Negative for any depression, anxiety, stress, suicidal ideation, homicidal ideation Hematologic: Negative for any easy bruising, excessive bruising, easy bleeding Allergies: Negative for any eczema, hives, rash EXAM <JAMES Miguel - Last Filed: 01/02/23 15:54> Physical Exam Narrative Exam Narrative: Vital signs reviewed. Patient is in no obvious distress, patient's vital signs are stable. HEET: Head normocephalic atraumatic, TMs clear bilaterally. Posterior pharynx is clear, moist mucous membranes. Nares clear bilaterally. Neck: Supple with no lymphadenopathy or tenderness. No signs of meningismus, negative jolt sign. Cardiac: Regular rate and rhythm no murmurs gallops or rubs, equal peripheral pulses bilaterally. Respiratory: Lungs clear to auscultation bilaterally. No chest tenderness. Abdomen: Soft, nontender, nondistended. No abdominal bruit or pulsatile masses. No hepatosplenomegaly Extremities: No peripheral edema, no signs of gross trauma or deformity. Active full range of motion of all extremities. Neuro: Cranial nerves II through XII intact, no focal neurological deficits. Skin: Clean dry and intact with no rash, purpura, petechiae, vesicles or pustules. Patient does have a lesion to the posterior neck, this looks like an area that has been rubbed, kind of a scab like lesion. There is some surrounding erythema. No drainage noted. Backs/flank: No CVA tenderness, no midline spinal tenderness, no deformity. Psych: Normal mood and affect. No SI, HI or acute psychosis. Const Vital Signs: 01/02/23 11:00 01/02/23 13:16 01/02/23 13:18 Temperature 96.7 F L Temperature Source Temporal Pulse Rate 80 81 Respiratory Rate 18 16 Respiratory Effort Normal Non-Labored Respiratory Depth Normal Respiratory Pattern Normal Blood Pressure 147/105 H 142/89 H Blood Pressure Mean 119 106 Pulse Ox 99 95 Oxygen Delivery Method Room Air Room Air Positive obese Nutritional Appearance: obese <Dr. Claudio Roach DO - Last Filed: 01/03/23 09:37> Physical Exam Const Vital Signs: 01/02/23 11:00 01/02/23 13:16 01/02/23 13:18 Temperature 96.7 F L Temperature Source Temporal Pulse Rate 80 81 Respiratory Rate 18 16 Respiratory Effort Normal Non-Labored Respiratory Depth Normal Respiratory Pattern Normal Blood Pressure 147/105 H 142/89 H Blood Pressure Mean 119 106 Pulse Ox 99 95 Oxygen Delivery Method Room Air Room Air MDM <JAMES Miguel - Last Filed: 01/02/23 15:54> СВЕТЛАНА Lab Data Labs: Laboratory Results - last 24 hr 01/02/23 11:37 WBC 11.7 H RBC 3.97 L Hgb 12.7 Hct 40.7 MCV 102.5 H MCH 32.0 MCHC 31.2 L RDW Std Deviation 67.7 H RDW Coeff of Alfredo 17.9 H Plt Count 376 MPV 9.6 Immature Gran % (Auto) 1.300 H Neut % (Auto) 71.0 H Lymph % (Auto) 16.0 L [place] % (Auto) 5.4 Eos % (Auto) 5.0 Baso % (Auto) 1.3 H Absolute Neuts (auto) 8.3 H Absolute Lymphs (auto) 1.87 Nucleated RBC % 0 Differential Comment SCANNED Anisocytosis 2+ Macrocytosis 1+ Sodium 141 Potassium 3.8 Chloride 107 Carbon Dioxide 23.0 Anion Gap 11 BUN 9 Creatinine 1.21 H Estim Creat Clear Calc 46.96 Est GFR (MDRD) Af Amer 60 Est GFR (MDRD) Non-Af 50 L BUN/Creatinine Ratio 7.4 L Glucose 118 H Calcium 9.0 Total Bilirubin 0.30 AST 42 H ALT 45 Alkaline Phosphatase 118 H Total Protein 8.0 Albumin 3.7 Globulin 4.3 H Albumin/Globulin Ratio 0.9 Lipase 40 Radiography Diagnostic Testing: Clinical Impression(s) from Imaging Studies Abdomen/Pelvis CT 01/02/23 11:16 IMPRESSION: 1. No focal acute inflammatory process. 2. Fecal retention. 3. Punctate nonobstructing renal stones without evidence of hydronephrosis. Electronically Signed: Fredrick Sharpe MD at 12:32 EST , EKG Normal sinus rhythm: Attestation: I personally reviewed and interpreted this EKG as follows: Interpretation: Sinus Rhythm Treatment and Re-Evaluation :: Patient is in no obvious distress, vital signs are stable, patient appears nontoxic. Patient presents to the emergency department for acute on chronic symptoms. Patient complains of ongoing abdominal pain, constipation, nausea and vomiting. She did complain of some urinary frequency, urinary incontinence that occurred last evening. Patient will receive a full abdominal work-up, this will include basic laboratory values as well as CT scan of the abdomen pelvis. Differential diagnosis includes constipation, bowel obstruction, gastroenteritis, UTI. Patient will receive IV Zofran, 500 cc normal saline bolus. Patient CBC showed a leukocytosis white plan 11.7, this is improved, patient CBC on December 25, 2022 was 12.8. Patient's creatinine is 1.21, this is baseline for the patient over the last 2 years. GFR 60. Liver enzymes unremarkable. Lipase negative. Patient CT scan of the abdomen pelvis showed no focal acute inflammatory process. There is some constipation. Punctate nonobstructing renal stones without evidence of hydronephrosis. At this time, patient will be diagnosed with constipation. There is no evidence of any bowel obstruction, appendicitis, diverticulitis. She was given mag citrate for home, as well as using stool softener such as MiraLAX. She will increase her fiber in her diet. Patient will follow-up outpatient, she was given return precaution. Patient stable for discharge. <Dr. Clauido Roach, DO - Last Filed: 01/03/23 09:37> [facility] Narrative Medical decision making narrative: Patient is in no obvious distress, vital signs are stable, patient appears nontoxic. Patient presents to the emergency department for acute on chronic symptoms. Patient complains of ongoing abdominal pain, constipation, nausea and vomiting. She did complain of some urinary frequency, urinary incontinence that occurred last evening. Patient will receive a full abdominal work-up, this will include basic laboratory values as well as CT scan of the abdomen pelvis. Differential diagnosis includes constipation, bowel obstruction, gastroenteritis, UTI. Patient will receive IV Zofran, 500 cc normal saline bolus. Patient CBC showed a leukocytosis white plan 11.7, this is improved, patient CBC on December 25, 2022 was 12.8. Patient's creatinine is 1.21, this is baseline for the patient over the last 2 years. GFR 60. Liver enzymes unremarkable. Lipase negative. Patient CT scan of the abdomen pelvis showed no focal acute inflammatory process. There is some constipation. Punctate nonobstructing renal stones without evidence of hydronephrosis. At this time, patient will be diagnosed with constipation. There is no evidence of any bowel obstruction, appendicitis, diverticulitis. She was given mag citrate for home, as well as using stool softener such as MiraLAX. She will increase her fiber in her diet. Patient will follow-up outpatient, she was given return precaution. Patient stable for discharge. This patient was seen with a PA/WINTERIZER Individually assessed they patient including history and physical. I have reviewed everything on the chart that is available and agree with the documentation provided by the PA/WINTERIZER including discussion about the assessment, treatment plan, discussion, and return precautions. Patient presenting mostly with constipation and abdominal pain states she is short of breath. Protocol EKG was obtained and shows normal sinus rhythm with reticulitis 77 bpm without sign of ischemic change or dysrhythmia. I do not believe she needs a cardiac work-up however I think she is constipated. Lab work result pain CT of the pelvis was normal. Ultimately patient will be discharged home with magnesium citrate, stool softeners. She is counseled on high-fiber diet. Return precautions discussed Lab Data Attestation: I reviewed the patient's lab results. Labs: Laboratory Results - last 24 hr 01/02/23 11:37 WBC 11.7 H RBC 3.97 L Hgb 12.7 Hct 40.7 MCV 102.5 H MCH 32.0 MCHC 31.2 L RDW Std Deviation 67.7 H RDW Coeff of Alfredo 17.9 H Plt Count 376 MPV 9.6 Immature Gran % (Auto) 1.300 H Neut % (Auto) 71.0 H Lymph % (Auto) 16.0 L [place] % (Auto) 5.4 Eos % (Auto) 5.0 Baso % (Auto) 1.3 H Absolute Neuts (auto) 8.3 H Absolute Lymphs (auto) 1.87 Nucleated RBC % 0 Differential Comment SCANNED Anisocytosis 2+ Macrocytosis 1+ Sodium 141 Potassium 3.8 Chloride 107 Carbon Dioxide 23.0 Anion Gap 11 BUN 9 Creatinine 1.21 H Estim Creat Clear Calc 46.96 Est GFR (MDRD) Af Amer 60 Est GFR (MDRD) Non-Af 50 L BUN/Creatinine Ratio 7.4 L Glucose 118 H Calcium 9.0 Total Bilirubin 0.30 AST 42 H ALT 45 Alkaline Phosphatase 118 H Total Protein 8.0 Albumin 3.7 Globulin 4.3 H Albumin/Globulin Ratio 0.9 Lipase 40 Radiography Diagnostic Testing: Clinical Impression(s) from Imaging Studies Abdomen/Pelvis CT 01/02/23 11:16 IMPRESSION: 1. No focal acute inflammatory process. 2. Fecal retention. 3. Punctate nonobstructing renal stones without evidence of hydronephrosis. Electronically Signed: Fredrick Sharpe MD at 12:32 EST Reading Location ID and State: [address] [place] [address] Tel , Service support , Discharge Plan Triage Chief Complaint: Shortness of Breath Other Complaint: Constipation Dizziness ED Midlevel Provider: aYir Forrester ED Provider: Claudio Roach Dx/Rx/DC Orders Clinical Impression: Abdominal pain, Constipation Instructions: Eating a High-Fiber Diet, ED Constipation (Adult) Prescriptions: New magnesium citrate [Citroma] Solution 300 ml PO DAILY PRN (Reason: constipation) Qty: 296 0RF No Action Ubrelvy 100 mg tablet 100 mg PO DAILY Rx Instructions: as a single dose; may repeat once in >=2 hours after first dose if needed budesonide-formoterol [Symbicort] 160-4.5 mcg/actuation HFA aerosol inhaler 2 puff INHALATION BID Nurtec ODT 75 mg tablet,disintegrating 75 mg PO ONCE gabapentin 100 mg capsule 100 mg PO TID Emgality Pen 120 mg/mL pen injector 120 mg subcut QMONTH tizanidine 4 mg tablet 4 mg PO QHS PRN (Reason: muscle relaxer) Trelegy Ellipta 100-62.5-25 mcg blister with device 1 ea INHALATION DAILY lorazepam 1 mg tablet 1 mg PO TID PRN (Reason: Anxiety) Qulipta 60 mg tablet 60 mg PO DAILY promethazine 25 mg tablet 25 mg PO Q4H PRN (Reason: nausea and vomiting) Qty: 20 0RF tramadol 50 mg tablet 50 mg PO TID Patient Comments: TAKE 1 TABLET BY MOUTH THREE TIMES DAILY FOR 28 DAYS progesterone micronized 200 mg capsule 200 mg PO DAILY Patient Comments: Take 2 capsules at bedtime ProAir RespiClick 90 mcg/actuation aerosol powdr breath activated 2 inh INHALATION 4X/DAY PRN (Reason: Shortness Of Breath) Qty: 1 0RF doxycycline monohydrate 100 mg capsule 100 mg PO BID Qty: 14 0RF Hold Instructions: not taking albuterol sulfate 90 mcg/actuation HFA aerosol inhaler 2 puff inhalation Q4H PRN (Reason: shortness of breath or wheezing) Patient Comments: Two puffs every four hours as needed atorvastatin 80 mg Tablet 80 mg PO QHS Qty: 30 0RF cefdinir 300 mg capsule 300 mg PO BID Qty: 14 0RF Hold Instructions: not taking dicyclomine 10 mg capsule 20 mg PO Q6H PRN PRN (Reason: abdominal pain) Qty: 20 0RF ondansetron 4 mg tablet,disintegrating 8 mg PO Q8H PRN PRN (Reason: Nausea) Qty: 20 0RF citalopram 40 mg tablet 40 mg PO DAILY amlodipine 10 mg tablet 10 mg PO DAILY Qty: 90 3RF valsartan 320 mg tablet 160 mg PO BID Qty: 90 3RF levothyroxine 175 mcg tablet 175 mcg PO DAILY Qty: 30 1RF Primary Care Provider: Halina Johnson Referrals: Halina Johnson, DO [Primary Care Provider] - Activity Restrictions/Additional Instructions: Use medium citrate, drink half of the bottle, if no results in 4 hours drink the rest. Continue to maintain hydration, high-fiber diet. You may also use MiraLAX 2 times a day for maintenance. Disposition Disposition: Home, Self Care Discharge Date/Time: 01/02/23 13:18
[2023-01-02] MEDS: Ondansetron 4 MG/2 ML Vial IV (11:39)
[2023-01-02 11:45] LABS: Absolute Lymphocyte Count 1.87 X10^3/uL (0.83-4.51); Absolute Neutrophil Count 8.3 X10^3/uL (2.0-7.7); Basophil# 0.15 X10^3/uL; Basophil% 1.3 % (0-1); Eosinophil# 0.58 X10^3/uL; Hematocrit 40.7 % (37-47); Hemoglobin 12.7 g/dL (12.0-15.0); Lymphocyte # 1.87 X10^3/ul (0.83-4.51); Mean Corp Hgb Conc 31.2 g/dL (32-36); Mean Corpuscular Volume 102.5 fL (81-99); Mean Platelet Vol. 9.6 fl (6.2-12.0); Monocyte# 0.63 X10^3/uL; Monocyte% 5.4 % (0-10); NRBC Flagged by Analyzer 0 % (0-5); Neutrophil # 8.33 X10^3/uL (2.7-7.7); POSITIVE MORPHOLOGY YES; Platelet Count 376 K/mm3 (150-450); RBC Distribution Width CV 17.9 % (11.6-14.6); RBC Distribution Width SD 67.7 fl (35.1-43.9); Red Blood Count 3.97 M/mm3 (4.2-5.4); White Blood Count 11.7 K/mm3 (4.4-11.0)
[2023-01-02 11:57] LABS: Differential Indicated SCAN CRITERIA MET
[2023-01-02] MEDS: Acetaminophen 500 MG Tablet 1000 MG PO (12:01)
[2023-01-02] MEDS: Dicyclomine 20 MG/2 ML Vial IM (12:03)
[2023-01-02 12:13] LABS: Differential Comment SCANNED
[2023-01-02 12:14] LABS: Anisocytosis 2+; Macrocytosis 1+
[2023-01-02 12:17] LABS: ALB/GLOB Ratio 0.9 RATIO (0.9-2.4); AST(SGOT) 42 U/L (15-37); Alanine Aminotransfer ALT/SGPT 45 U/L (13-56); Albumin, Serum 3.7 g/dL (3.2-5.0); Alkaline Phosphatase 118 U/L (45-117); Anion Gap 11 (5-15); BUN 9 mg/dL (7-18); BUN/Creat Ratio 7.4 RATIO (10-20); Chloride 107 mmol/L (98-107); Creatinine, Serum 1.21 mg/dL (0.55-1.02); EST Glomerular Filtration Rate 50 mL/min (>60); Est Glom Filt Rate - Afr Amer 60 mL/min (>60); Estimated Creatinine Clearance 46.96 ml/min; Globulin 4.3 g/dL (2.2-4.2); Glucose 118 mg/dL (74-106); Lipase 40 U/L (13-75); Potassium 3.8 mmol/L (3.5-5.1); Sodium Level 141 mmol/L (136-145)
[2023-01-02 13:16] VITALS: BP 142/89; PULSE 81; RESP 16; O2SAT 95
[2023-01-02 13:18] VITALS: O2SAT 95
== END 2023-01-02 13:18 | disposition home or self-care (01) ==
PROVIDERS: Nurse Practitioner; Emergency Provider Student in an Organized Health Care Education/Training Program; PCP Family Medicine; Visit Provider Student in an Organized Health Care Education/Training Program
DX: R10.9 Unspecified abdominal pain (principal); E11.22 Type 2 diabetes mellitus with diabetic chronic kidney disease; K59.00 Constipation, unspecified; N18.9 Chronic kidney disease, unspecified; G47.33 Obstructive sleep apnea (adult) (pediatric); Z86.711 Personal history of pulmonary embolism
CPT/HCPCS: 74176; 80053; 83690; 85025; 93005; 96372; 96374; 99285; A4216; J2405

== ENCOUNTER 2023-01-03 15:16 | Emergency (ER) | payer MEDICARE, MEDICAID, SELFPAY ==
[2023-01-03 15:17] VITALS: BP 148/96; PULSE 908; RESP 18; TEMP 36.6; O2SAT 94; BMI 48.4
[2023-01-03] MEDS: Ondansetron 4 MG/2 ML Vial IV (19:46)
[2023-01-03] MEDS: 0.9% Normal Saline (1000mL) 1,000 ML 1000 ML IV (19:47)
--- NOTE | 2023-01-03 20:00 | RAD_ITS ---
INDICATION: Pain EXAMINATION/TECHNIQUE: X-RAY - XR Abdomen Series W/ Chest 1 View COMPARISON: 12/20/2022 FINDINGS: --Chest: LINES/DEVICES: None. LUNGS: Elevation RIGHT hemidiaphragm and RIGHT basilar atelectasis noted. MEDIASTINUM AND CARDIOVASCULAR STRUCTURES: Cardiac silhouette is upper limit of normal, no evidence of congestive failure. BONES AND SOFT TISSUES: No acute findings. --Abdomen: BOWEL GAS PATTERN: Non-obstructive. No bowel or stomach distention. FREE AIR: None visualized. ORGANOMEGALY: Not seen. CALCIFICATIONS: No abnormal calcifications observed. BONES AND SOFT TISSUES: No acute findings. RAD/Acute Abdomen Inc Chest IMPRESSION: 1. Stable borderline cardiomegaly, no evidence congestive failure. 2. Mild atelectasis and volume loss at the RIGHT lung base. Remaining lung zones clear. 3. No evidence of bowel obstruction. No free air. Electronically Signed: Casey Hodge MD at 20:56 EST ,
[2023-01-03 20:09] LABS: Absolute Lymphocyte Count 1.89 X10^3/uL (0.83-4.51); Absolute Neutrophil Count 9.1 X10^3/uL (2.0-7.7); Basophil# 0.13 X10^3/uL; Eosinophil# 0.46 X10^3/uL; Eosinophils% 3.7 % (0-5); Hematocrit 38.9 % (37-47); Hemoglobin 12.3 g/dL (12.0-15.0); Lymphocyte # 1.89 X10^3/ul (0.83-4.51); Lymphocyte % 15.1 % (19-41); Mean Corp Hgb Conc 31.6 g/dL (32-36); Mean Corpuscular Hgb 32.4 pg (27.0-32.0); Mean Corpuscular Volume 102.4 fL (81-99); Mean Platelet Vol. 10.1 fl (6.2-12.0); Monocyte# 0.86 X10^3/uL; Monocyte% 6.9 % (0-10); NRBC Flagged by Analyzer 0 % (0-5); Neutrophil # 9.08 X10^3/uL (2.7-7.7); Neutrophil % 72.3 % (47-70); POSITIVE MORPHOLOGY YES; Platelet Count 390 K/mm3 (150-450); RBC Distribution Width CV 18.1 % (11.6-14.6); RBC Distribution Width SD 67.3 fl (35.1-43.9); White Blood Count 12.6 K/mm3 (4.4-11.0)
[2023-01-03 20:15] LABS: Differential Indicated SCAN CRITERIA MET
--- NOTE | 2023-01-03 20:18 | ED.RN ---
PT IV PULLED OUT WHEN SHE TRIED TO PUT ON HER SWEATER. DRESSING APPLIED.
[2023-01-03 20:36] LABS: ALB/GLOB Ratio 0.8 RATIO (0.9-2.4); AST(SGOT) 39 U/L (15-37); Alanine Aminotransfer ALT/SGPT 42 U/L (13-56); Albumin, Serum 3.5 g/dL (3.2-5.0); Alkaline Phosphatase 110 U/L (45-117); Anion Gap 6 (5-15); BUN 9 mg/dL (7-18); BUN/Creat Ratio 7.4 RATIO (10-20); Calcium,Total 9.1 mg/dL (8.5-10.1); Chloride 107 mmol/L (98-107); Creatinine, Serum 1.22 mg/dL (0.55-1.02); EST Glomerular Filtration Rate 49 mL/min (>60); Est Glom Filt Rate - Afr Amer 59 mL/min (>60); Estimated Creatinine Clearance 46.58 ml/min; Globulin 4.2 g/dL (2.2-4.2); Glucose 98 mg/dL (74-106); Protein, Total 7.7 g/dL (6.4-8.2); Sodium Level 138 mmol/L (136-145)
--- NOTE | 2023-01-03 20:44 | ED.VIS.GI ---
HPI HPI - GI History of Present Illness Chief Complaint: Constipation Informant: patient Narrative Narrative: Patient read presents with constipation. Patient states she has history of chronic constipation. She is not sure why. She has also chronic tramadol. She does not think she is on any chronic stool softeners. She has not had a good bowel movement for 2 weeks. She states that last night she started with some nausea and vomiting after she tried to take magnesium citrate. But after reviewing the chart I found out she was here yesterday for this and then talk to her. She had stated they had seen her told her she had constipation and sent her home with magnesium citrate. However, what I also find out upon reviewing the chart the blood work and a CAT scan was done. Patient states that she had about a third to half of the bottle of magnesium citrate. She could not tolerate this so she stopped. She has not had a good bowel movement. She has no fevers. She states she has abdominal pain but cannot localize it. [facility] Medical History Abnormal glucose Anemia Anxiety Arthritis Asthma BiPAP (biphasic positive airway pressure) dependence Cardiac murmur Cardiology follow-up encounter Celiac disease Chest pain Cholelithiasis Chronic kidney disease Constipation COPD (chronic obstructive pulmonary disease) Depression Diabetes Diabetes mellitus Dietary restriction Difficulty swallowing Dyspnea on exertion Easy bruising Essential hypertension Gastric reflux GERD (gastroesophageal reflux disease) Gout History of chronic back pain History of chronic kidney disease History of echocardiogram History of edema History of pain when walking History of stress test Hydronephrosis Hyperlipidemia Hypersomnia Hypertension Hypertension Hypothyroidism Injury of head and neck Iron deficiency anemia Kidney stones Leg cramps Microcytic anemia Migraine headache Morbid obesity with BMI of 40.0-44.9, adult Non-smoker Noncompliance DAVY treated with BiPAP Post-menopausal Pulmonary embolism Restless leg syndrome Seasonal allergies Shortness of breath on exertion Syncope Thyroid disease Ureterolithiasis UTI (urinary tract infection) Vitamin B12 deficiency Vitamin D deficiency Wears glasses Home Medications citalopram 40 mg tablet 40 mg PO DAILY antidepressant/antianxiety 07/27/19 [History Last Taken 05/04/22] budesonide-formoterol HFA 160 mcg-4.5 mcg/actuation aerosol inhaler (Symbicort) 2 puff inhalation BID inhaler 04/02/20 [History Last Taken 05/04/22] ubrogepant 100 mg tablet (Ubrelvy) 100 mg PO DAILY migraines 04/02/20 [History Last Taken 05/04/22] rimegepant 75 mg disintegrating tablet (Nurtec ODT) 75 mg PO ONCE migraines 06/19/20 [History Last Taken 05/04/22] fluticasone fur. 100 mcg-umeclid 62.5 mcg-vilant 25 mcg inhalat.powder (Trelegy Ellipta) 1 ea inhalation DAILY COPD 08/14/20 [History Last Taken 05/04/22] gabapentin 100 mg capsule 100 mg PO TID neuropathy 09/30/20 [History Last Taken 05/04/22] galcanezumab-gnlm 120 mg/mL subcutaneous pen injector (Emgality Pen) 120 mg subcut QMONTH MIGRAINES 08/19/21 [History Last Taken 09/26/22] tizanidine 4 mg tablet 4 mg PO QHS PRN muscle relaxer 03/03/22 [History Last Taken 05/03/22] atogepant 60 mg tablet (Qulipta) 60 mg PO DAILY MIGRAINES 05/04/22 [History Last Taken 05/04/22] lorazepam 1 mg tablet 1 mg PO TID PRN Anxiety 05/04/22 [History Last Taken Unknown] promethazine 25 mg tablet 25 mg PO Q4H PRN nausea and vomiting #20 tabs 05/14/22 [Rx Last Taken Unknown] progesterone micronized 200 mg capsule 200 mg PO DAILY hormones 10/11/22 [History Last Taken Unknown] tramadol 50 mg tablet 50 mg PO TID pain 10/11/22 [History Last Taken Unknown] amlodipine 10 mg tablet 10 mg PO DAILY blood pressure #90 tabs 10/28/22 [Rx Last Taken Unknown] valsartan 320 mg tablet 160 mg (1/2 x 320 mg) PO BID BLOOD PRESSURE #90 tabs 10/28/22 [Rx Last Taken Unknown] albuterol sulfate 90 mcg/actuation breath activated powder inhaler (ProAir RespiClick) 2 inh inhalation 4X/DAY PRN Shortness Of Breath #1 ea 11/07/22 [Rx Last Taken Unknown] doxycycline monohydrate 100 mg capsule 100 mg PO BID #14 CAPSULES 11/12/22 [Rx Last Taken Unknown] levothyroxine 175 mcg tablet 175 mcg PO DAILY order as courtesy until pt sees PCP 11/25/22 #30 tabs 11/18/22 [Rx Last Taken Unknown] cefdinir 300 mg capsule 300 mg PO BID #14 caps 12/04/22 [Rx Last Taken Unknown] dicyclomine 10 mg capsule 20 mg (2 x 10 mg) PO Q6H PRN PRN abdominal pain #20 CAPSULES 12/20/22 [Rx Last Taken Unknown] ondansetron 4 mg disintegrating tablet 8 mg (2 x 4 mg) PO Q8H PRN PRN Nausea #20 tabs 12/20/22 [Rx Last Taken Unknown] albuterol sulfate 90 mcg/actuation aerosol inhaler 2 puff inhalation Q4H PRN shortness of breath or wheezing 12/25/22 [History Last Taken Unknown] atorvastatin 80 mg tablet 80 mg PO QHS #30 tabs 12/25/22 [Rx Last Taken Unknown] magnesium citrate (Citroma oral solution) 300 ml PO DAILY PRN constipation #296 mL 01/02/23 [Rx Last Taken Unknown] ondansetron 4 mg disintegrating tablet 4 mg PO Q8H PRN PRN Nausea #10 tabs 01/03/23 [Rx Last Taken Unknown] Allergy/AdvReac Type Severity Reaction Status Date / Time hydrochlorothiazide AdvReac Intermediate Contributes Verified 01/03/23 15:17 to gout naproxen [From Naprosyn] AdvReac Intermediate Nausea Verified 01/03/23 15:17 aspirin AdvReac Nausea Verified 01/03/23 15:17 Family History Father , Age 72 Hypertension Mother CAD (coronary artery disease) Myocardial infarction, Onset Age: 55 Hypertension Sister CAD (coronary artery disease) Brother Cancer Surgical History History of History of cardiac catheterization History of carpal tunnel surgery of left wrist History of carpal tunnel surgery of right wrist History of left heart catheterization (11/11/20) history of uterine ablation Hx of cystoscopy Social History household members: none housing: apartment Smoking Status: Never smoker alcohol intake: never substance use type: does not use caffeine: No ROS ROS ED ROS Narrative A complete review of systems was performed and is negative except as documented in the history of present illness. Some specific details below. Constitutional: No recent fevers or chills. EYE: No visual complaints or pain. ENT: No difficulty swallowing. No swelling. No pain. She denies GERD but does have a diagnosis of GERD on her chart. CV: No chest pain or palpitations. Respiratory: No dyspnea. No hemoptysis. No difficulty taking breaths. GI: Please see history of present illness. She generally complains of some nausea. She would like Zofran but states she does not have it at home now. : No frequency dysuria or hematuria. Musculoskeletal: No recent trauma. No pains. Skin: No rash. Nondiaphoretic. Neuro: No weakness or numbness. Endocrine: No polyuria or polydipsia. EXAM Physical Exam Narrative Exam Narrative: CONSTITUTIONAL: Patient is nontoxic in appearance. The patient looks comfortable. Is lying calmly in the bed. HEENT: No notable trauma. Mucous membranes moist. EYES: No conjunctival injection. No proptosis. CARDIOVASCULAR: Regular rate. Regular rhythm. No notable murmur. No JVD. RESPIRATORY: No respiratory distress. Breathing is unlabored. No wheezes. No rhonchi. No rales. No pain with a deep breath. GASTROINTESTINAL: Coreas is obese but does not appear to be distended. Bowel sounds are normal. I do not find any tenderness on exam. No guarding. No rebound. No palpable mass. No bruit. GENITOURINARY: No tenderness over the bladder. No CVA tenderness. She does complain of pain in her lower back but it is much lower near the sacral area. And it appears to be more of a chronic issue. She has had kidney stones but this is nowhere near her area of discomfort. MUSCULOSKELETAL: Atraumatic. NEUROLOGICAL: Patient is alert and appropriate. No focal deficit noted. SKIN: No noted rashes. No diaphoresis. PSYCHIATRIC: Patient is calm. Mood is appropriate. Const Vital Signs: 01/03/23 15:17 Temperature 97.8 F Temperature Source Temporal Pulse Rate 908 H Respiratory Rate 18 Blood Pressure 148/96 H Blood Pressure Mean 113 Pulse Ox 94 Oxygen Delivery Method Room Air MDM MDM MDM Narrative Medical decision making narrative: My independent interpretation of the patient's abdominal series shows increased stool but no sign of obstruction. Final reading was similar but does not make note of borderline cardiomegaly and some mild atelectasis. Patient CBC shows minimal elevation of white count at 12.6 which is nonspecific. Platelets hemoglobin are normal. Patient's electrolytes are overall normal. Creatinine is just mildly above a normal baseline at 1.22. Patient's liver function test show no marked abnormalities. Patient was given an enema with some release. She refused to drink the GoLytely here. I talked with the patient. Her nausea is better. She is not vomiting. Her exam is overall not impressive. She had negative CT and work-up recently. She does have signs of constipation. I explained that I do not have a simple way to relieve this. Because her stool is throughout the colon rectal exam is not going to provide decompression. She wanted another enema which we can offer but I explained that this will not get all the stool well. She needs to have something to stimulate the bowels. She does not want to drink a large amount of liquid but I explained that she needs to do this to get better. I think she is still appropriate to go home. I will write her for [facility]. She will take home the GoLytely. I also explained that holding on the tramadol for a few days could help. She states she takes this for allover pain through her pain management doctor. She does not feel that this is contributing to constipation. I explained that all narcotics can contribute. Lab Data Attestation: I reviewed the patient's lab results. Labs: Laboratory Results - last 24 hr 01/03/23 19:40 WBC 12.6 H RBC 3.80 L Hgb 12.3 Hct 38.9 MCV 102.4 H MCH 32.4 H MCHC 31.6 L RDW Std Deviation 67.3 H RDW Coeff of Alfredo 18.1 H Plt Count 390 MPV 10.1 Immature Gran % (Auto) 1.000 H Neut % (Auto) 72.3 H Lymph % (Auto) 15.1 L Morrison % (Auto) 6.9 Eos % (Auto) 3.7 Baso % (Auto) 1.0 Absolute Neuts (auto) 9.1 H Absolute Lymphs (auto) 1.89 Nucleated RBC % 0 Differential Comment Sodium 138 Potassium 4.0 Chloride 107 Carbon Dioxide 25.0 Anion Gap 6 BUN 9 Creatinine 1.22 H Estim Creat Clear Calc 46.58 Est GFR (MDRD) Af Amer 59 L Est GFR (MDRD) Non-Af 49 L BUN/Creatinine Ratio 7.4 L Glucose 98 Calcium 9.1 Total Bilirubin 0.30 AST 39 H ALT 42 Alkaline Phosphatase 110 Total Protein 7.7 Albumin 3.5 Globulin 4.2 Albumin/Globulin Ratio 0.8 L Radiography Diagnostic Testing: Clinical Impression(s) from Imaging Studies Acute Abdomen Series 01/03/23 20:00 IMPRESSION: 1. Stable borderline cardiomegaly, no evidence congestive failure. 2. Mild atelectasis and volume loss at the RIGHT lung base. Remaining lung zones clear. 3. No evidence of bowel obstruction. No free air. Electronically Signed: Casey Hodge MD at 20:56 EST , Discharge Plan Triage Chief Complaint: Constipation ED Provider: Bruno Whittaker Dx/Rx/DC Orders Clinical Impression: History of nausea and vomiting, Constipation Instructions: ED Constipation (Adult) Prescriptions: New ondansetron [ondansetron] 4 mg tablet,disintegrating 4 mg PO Q8H PRN PRN (Reason: Nausea) Qty: 10 0RF No Action Ubrelvy 100 mg tablet 100 mg PO DAILY Rx Instructions: as a single dose; may repeat once in >=2 hours after first dose if needed budesonide-formoterol [Symbicort] 160-4.5 mcg/actuation HFA aerosol inhaler 2 puff INHALATION BID Nurtec ODT 75 mg tablet,disintegrating 75 mg PO ONCE gabapentin 100 mg capsule 100 mg PO TID Emgality Pen 120 mg/mL pen injector 120 mg subcut QMONTH tizanidine 4 mg tablet 4 mg PO QHS PRN (Reason: muscle relaxer) Trelegy Ellipta 100-62.5-25 mcg blister with device 1 ea INHALATION DAILY lorazepam 1 mg tablet 1 mg PO TID PRN (Reason: Anxiety) Qulipta 60 mg tablet 60 mg PO DAILY promethazine 25 mg tablet 25 mg PO Q4H PRN (Reason: nausea and vomiting) Qty: 20 0RF tramadol 50 mg tablet 50 mg PO TID Patient Comments: TAKE 1 TABLET BY MOUTH THREE TIMES DAILY FOR 28 DAYS progesterone micronized 200 mg capsule 200 mg PO DAILY Patient Comments: Take 2 capsules at bedtime ProAir RespiClick 90 mcg/actuation aerosol powdr breath activated 2 inh INHALATION 4X/DAY PRN (Reason: Shortness Of Breath) Qty: 1 0RF doxycycline monohydrate 100 mg capsule 100 mg PO BID Qty: 14 0RF Hold Instructions: not taking albuterol sulfate 90 mcg/actuation HFA aerosol inhaler 2 puff inhalation Q4H PRN (Reason: shortness of breath or wheezing) Patient Comments: Two puffs every four hours as needed atorvastatin 80 mg Tablet 80 mg PO QHS Qty: 30 0RF cefdinir 300 mg capsule 300 mg PO BID Qty: 14 0RF Hold Instructions: not taking dicyclomine 10 mg capsule 20 mg PO Q6H PRN PRN (Reason: abdominal pain) Qty: 20 0RF ondansetron 4 mg tablet,disintegrating 8 mg PO Q8H PRN PRN (Reason: Nausea) Qty: 20 0RF magnesium citrate [Citroma] Solution 300 ml PO DAILY PRN (Reason: constipation) Qty: 296 0RF citalopram 40 mg tablet 40 mg PO DAILY amlodipine 10 mg tablet 10 mg PO DAILY Qty: 90 3RF valsartan 320 mg tablet 160 mg PO BID Qty: 90 3RF levothyroxine 175 mcg tablet 175 mcg PO DAILY Qty: 30 1RF Primary Care Provider: Halina Johnson Referrals: Halina Johnson, DO [Primary Care Provider] - 1-2 Days if not improving Activity Restrictions/Additional Instructions: Please drink the GoLytely as suggested. You need to take something that was stimulated cleansing of the colon. Enemas will not remove all the stool. Disposition Disposition: Home, Self Care
[2023-01-03] MEDS: Electrolyte Solution/Peg's 4000 ML PO (20:46)
--- NOTE | 2023-01-03 22:01 | ED.RN ---
Pt prescribed golytly and encouraged to drink to improve fecal output. Pt making statement that she can't drink all that. This RN poured one small glass for pt and encouraged pt to at least attempt to drink a little at a time. Pt makes no attempt to drink medication. notified.
== END 2023-01-03 22:23 | disposition home or self-care (01) ==
PROVIDERS: Emergency Provider Emergency Medicine; PCP Family Medicine; Visit Provider Emergency Medicine
DX: E11.22 Type 2 diabetes mellitus with diabetic chronic kidney disease (principal); J44.9 Chronic obstructive pulmonary disease, unspecified; I12.9 Hypertensive chronic kidney disease with stage 1 through stage 4 chronic kidney disease, or unspecified chronic kidney disease; N18.9 Chronic kidney disease, unspecified; E78.5 Hyperlipidemia, unspecified; F41.9 Anxiety disorder, unspecified; F32.A Depression, unspecified; Z79.899 Other long term (current) drug therapy; Z79.51 Long term (current) use of inhaled steroids; G43.909 Migraine, unspecified, not intractable, without status migrainosus; E03.9 Hypothyroidism, unspecified; R11.2 Nausea with vomiting, unspecified; K59.00 Constipation, unspecified
CPT/HCPCS: 74022; 80053; 85025; 96361; 96374; 99285; J2405

== ENCOUNTER → 2023-01-06 | Outpatient (CLI) | payer MEDICARE, MEDICAID, SELFPAY ==
--- NOTE | 2023-01-06 10:57 | RAD_ITS ---
STUDY: X-RAY - ACUTE ABDOMINAL SERIES REASON FOR EXAM: Female, 52 years old. abd pain TECHNIQUE: Single view of the chest. Supine, and erect view(s) of the abdomen were obtained. COMPARISON: 01/03/2023. FINDINGS: The lungs are clear and expanded. There is an epicardial fat pad adjacent to the cardiac apex. Normal mediastinum and kumar. Normal visualized pulmonary arteries. Normal visualized aortic arch and descending thoracic aorta. Abundant fecal debris within the colon consistent with constipation. The soft tissue structures of the abdomen and pelvis are unremarkable. There are mild degenerative changes of the visualized lumbar spine. There are mild degenerative osteoarthritic changes of the bilateral hips. RAD/Acute Abdomen Inc Chest IMPRESSION: No acute cardiac pulmonary disease. Constipation. Electronically Signed: Ya Wall MD at 2:06 EST ,
== END | disposition home or self-care (01) ==
LOC: MTRAD 10:56
PROVIDERS: PCP Family Medicine; Referring Provider Family Medicine; Visit Provider Family Medicine
DX: R10.9 Unspecified abdominal pain (principal)
CPT/HCPCS: 74022

== ENCOUNTER 2023-01-07 03:23 | Emergency (ER) | payer MEDICARE, MEDICAID, SELFPAY ==
[2023-01-07 03:27] VITALS: BP 158/104; PULSE 83; RESP 18; TEMP 36.2; O2SAT 99; BMI 50.1
--- NOTE | 2023-01-07 04:22 | EDS_ITS ---
HPI History of Present Illness Chief Complaint: General Illness Narrative Narrative: 52-year-old female presenting with abdominal pain and back pain as well as constipation. These are all chronic issues. Patient states that she has Zofran and magnesium citrate although she has not been able to tolerate the magnesium citrate very well because she gets nauseous. She has not had any significant bowel movements. Denies fevers or chills. She has had multiple work-ups and a CT of the abdomen pelvis recently which were all negative. She saw her PCP yesterday who put her on another medication for constipation but she cannot recall the name of it. She is taken a couple of doses but has not had a bowel movement. She states she came today because she cannot sleep due to constipation, back pain, abdominal pain. PFSH [facility] Medical History Abnormal glucose Anemia Anxiety Arthritis Asthma BiPAP (biphasic positive airway pressure) dependence Cardiac murmur Cardiology follow-up encounter Celiac disease Chest pain Cholelithiasis Chronic kidney disease Constipation COPD (chronic obstructive pulmonary disease) Depression Diabetes Diabetes mellitus Dietary restriction Difficulty swallowing Dyspnea on exertion Easy bruising Essential hypertension Gastric reflux GERD (gastroesophageal reflux disease) Gout History of chronic back pain History of chronic kidney disease History of echocardiogram History of edema History of pain when walking History of stress test Hydronephrosis Hyperlipidemia Hypersomnia Hypertension Hypertension Hypothyroidism Injury of head and neck Iron deficiency anemia Kidney stones Leg cramps Microcytic anemia Migraine headache Morbid obesity with BMI of 40.0-44.9, adult Non-smoker Noncompliance DAVY treated with BiPAP Post-menopausal Pulmonary embolism Restless leg syndrome Seasonal allergies Shortness of breath on exertion Syncope Thyroid disease Ureterolithiasis UTI (urinary tract infection) Vitamin B12 deficiency Vitamin D deficiency Wears glasses Home Medications citalopram 40 mg tablet 40 mg PO DAILY antidepressant/antianxiety 07/27/19 [History Last Taken 05/04/22] budesonide-formoterol HFA 160 mcg-4.5 mcg/actuation aerosol inhaler (Symbicort) 2 puff inhalation BID inhaler 04/02/20 [History Last Taken 05/04/22] ubrogepant 100 mg tablet (Ubrelvy) 100 mg PO DAILY migraines 04/02/20 [History Last Taken 05/04/22] rimegepant 75 mg disintegrating tablet (Nurtec ODT) 75 mg PO ONCE migraines 06/19/20 [History Last Taken 05/04/22] fluticasone fur. 100 mcg-umeclid 62.5 mcg-vilant 25 mcg inhalat.powder (Trelegy Ellipta) 1 ea inhalation DAILY COPD 08/14/20 [History Last Taken 05/04/22] gabapentin 100 mg capsule 100 mg PO TID neuropathy 09/30/20 [History Last Taken 05/04/22] galcanezumab-gnlm 120 mg/mL subcutaneous pen injector (Emgality Pen) 120 mg subcut QMONTH MIGRAINES 08/19/21 [History Last Taken 09/26/22] tizanidine 4 mg tablet 4 mg PO QHS PRN muscle relaxer 03/03/22 [History Last Taken 05/03/22] atogepant 60 mg tablet (Qulipta) 60 mg PO DAILY MIGRAINES 05/04/22 [History Last Taken 05/04/22] lorazepam 1 mg tablet 1 mg PO TID PRN Anxiety 05/04/22 [History Last Taken Unknown] promethazine 25 mg tablet 25 mg PO Q4H PRN nausea and vomiting #20 tabs 05/14/22 [Rx Last Taken Unknown] progesterone micronized 200 mg capsule 200 mg PO DAILY hormones 10/11/22 [History Last Taken Unknown] tramadol 50 mg tablet 50 mg PO TID pain 10/11/22 [History Last Taken Unknown] amlodipine 10 mg tablet 10 mg PO DAILY blood pressure #90 tabs 10/28/22 [Rx Last Taken Unknown] valsartan 320 mg tablet 160 mg (1/2 x 320 mg) PO BID BLOOD PRESSURE #90 tabs 10/28/22 [Rx Last Taken Unknown] albuterol sulfate 90 mcg/actuation breath activated powder inhaler (ProAir Resp iClick) 2 inh inhalation 4X/DAY PRN Shortness Of Breath #1 ea 11/07/22 [Rx Last Taken Unknown] doxycycline monohydrate 100 mg capsule 100 mg PO BID #14 CAPSULES 11/12/22 [Rx Last Taken Unknown] levothyroxine 175 mcg tablet 175 mcg PO DAILY order as courtesy until pt sees PCP 11/25/22 #30 tabs 11/18/22 [Rx Last Taken Unknown] cefdinir 300 mg capsule 300 mg PO BID #14 caps 12/04/22 [Rx Last Taken Unknown] dicyclomine 10 mg capsule 20 mg (2 x 10 mg) PO Q6H PRN PRN abdominal pain #20 CAPSULES 12/20/22 [Rx Last Taken Unknown] ondansetron 4 mg disintegrating tablet 8 mg (2 x 4 mg) PO Q8H PRN PRN Nausea #20 tabs 12/20/22 [Rx Last Taken Unknown] albuterol sulfate 90 mcg/actuation aerosol inhaler 2 puff inhalation Q4H PRN shortness of breath or wheezing 12/25/22 [History Last Taken Unknown] atorvastatin 80 mg tablet 80 mg PO QHS #30 tabs 12/25/22 [Rx Last Taken Unknown] magnesium citrate (Citroma oral solution) 300 ml PO DAILY PRN constipation #296 mL 01/02/23 [Rx Last Taken Unknown] ondansetron 4 mg disintegrating tablet 4 mg PO Q8H PRN PRN Nausea #10 tabs 01/03/23 [Rx Last Taken Unknown] metoclopramide HCl 10 mg tablet (Reglan) 10 mg PO Q6H PRN nausea and vomiting #20 tabs 01/07/23 [Rx Last Taken Unknown] peg 3350 240 gram-electrolytes 22.72 gram-6.72 g-5.84 g powdr for soln (Gavilyte-C) 240 ml PO Q10M PRN #4,000 mL 01/07/23 [Rx Last Taken Unknown] Allergy/AdvReac Type Severity Reaction Status Date / Time hydrochlorothiazide AdvReac Intermediate Contributes Verified 01/07/23 03:24 to gout naproxen [From Naprosyn] AdvReac Intermediate Nausea Verified 01/07/23 03:24 aspirin AdvReac Nausea Verified 01/07/23 03:24 Family History Father , Age 72 Hypertension Mother CAD (coronary artery disease) Myocardial infarction, Onset Age: 55 Hypertension Sister CAD (coronary artery disease) Brother Cancer Surgical History History of History of cardiac catheterization History of carpal tunnel surgery of left wrist History of carpal tunnel surgery of right wrist History of left heart catheterization (11/11/20) history of uterine ablation Hx of cystoscopy Social History household members: none housing: apartment Smoking Status: Never smoker alcohol intake: never substance use type: does not use caffeine: No ROS ROS ED Constitutional Constitutional ED: Denies chills, fever(s) or sweats Eyes Eyes: Denies blurry vision or change in vision ENT ENT ED: Denies ear pain or sore throat Cardiovascular Cardiovascular: Denies chest pain, palpitations or racing heartbeat Respiratory/Chest Respiratory/Chest: Denies cough, dyspnea or sputum Gastrointestinal Gastrointestinal: Reports abdominal pain and constipation; Denies diarrhea, nausea or vomiting Genitourinary Genitourinary ED: Denies dysuria, hematuria or urinary frequency Musculoskeletal Musculoskeletal: Denies arthralgias, myalgias or neck pain Integumentary Denies abscess, Abrasions or rash Neurologic Neurologic: Denies headache(s), paresthesias or weakness Psychiatric Psychiatric: Denies anxiety, depression, suicidal ideation or suicidal thoughts Endocrine Endocrinology: Denies polydipsia or polyuria EXAM Physical Exam Const Vital Signs: 01/07/23 03:27 01/07/23 03:32 Temperature 97.1 F L Temperature Source Temporal Pulse Rate 83 Respiratory Rate 18 Respiratory Effort Normal Respiratory Pattern Normal Blood Pressure 158/104 H Blood Pressure Mean 122 Pulse Ox 99 Oxygen Delivery Method Room Air Positive well nourished and obese General Appearance ED: NAD Nutritional Appearance: obese HEENT Reports moist mucous membranes Eyes PERRL and EOMs intact bilaterally Resp normal respiratory effort Effort and Inspection: Negative for retractions Cardio regular rate and regular rhythm GI GI Narrative: Benign abdomen. Back/Spine no CVA tenderness Skin no rashes or lesions noted and no wounds MDM MDM MDM Narrative Medical decision making narrative: After an extended discussion with the patient and reviewing her medical record she has had several different work-ups with blood work recently. She was recent admitted for cardiac rule out as well.She had a CT of the abdomen pelvis on the fifth and she said to abdominal films which both showed constipation. I will have the patient started on Reglan and give her GoLytely to see if this will help her have a bowel movement. I do not believe she needs repeat blood work or imaging. She is amenable to this. I had her medicines filled here at the ER via meds to beds that she can take at home. Discharged in stable condition. Impression: 1. Abdominal pain 2. Back pain 3. Constipation Discharge Plan Triage Chief Complaint: General Illness ED Provider: Claudio Roach Dx/Rx/DC Orders Clinical Impression: Constipation Prescriptions: New metoclopramide HCl [Reglan] 10 mg tablet 10 mg PO Q6H PRN (Reason: nausea and vomiting) Qty: 20 0RF GaviLyte-C 240-22.72-6.72 -5.84 gram recon soln 240 ml PO Q10M PRN Qty: 4000 0RF Rx Instructions: until fecal effluent is clear No Action Ubrelvy 100 mg tablet 100 mg PO DAILY Rx Instructions: as a single dose; may repeat once in >=2 hours after first dose if needed budesonide-formoterol [Symbicort] 160-4.5 mcg/actuation HFA aerosol inhaler 2 puff INHALATION BID Nurtec ODT 75 mg tablet,disintegrating 75 mg PO ONCE gabapentin 100 mg capsule 100 mg PO TID Emgality Pen 120 mg/mL pen injector 120 mg subcut QMONTH tizanidine 4 mg tablet 4 mg PO QHS PRN (Reason: muscle relaxer) Trelegy Ellipta 100-62.5-25 mcg blister with device 1 ea INHALATION DAILY lorazepam 1 mg tablet 1 mg PO TID PRN (Reason: Anxiety) Qulipta 60 mg tablet 60 mg PO DAILY promethazine 25 mg tablet 25 mg PO Q4H PRN (Reason: nausea and vomiting) Qty: 20 0RF tramadol 50 mg tablet 50 mg PO TID Patient Comments: TAKE 1 TABLET BY MOUTH THREE TIMES DAILY FOR 28 DAYS progesterone micronized 200 mg capsule 200 mg PO DAILY Patient Comments: Take 2 capsules at bedtime ProAir RespiClick 90 mcg/actuation aerosol powdr breath activated 2 inh INHALATION 4X/DAY PRN (Reason: Shortness Of Breath) Qty: 1 0RF doxycycline monohydrate 100 mg capsule 100 mg PO BID Qty: 14 0RF Hold Instructions: not taking albuterol sulfate 90 mcg/actuation HFA aerosol inhaler 2 puff inhalation Q4H PRN (Reason: shortness of breath or wheezing) Patient Comments: Two puffs every four hours as needed atorvastatin 80 mg Tablet 80 mg PO QHS Qty: 30 0RF cefdinir 300 mg capsule 300 mg PO BID Qty: 14 0RF Hold Instructions: not taking dicyclomine 10 mg capsule 20 mg PO Q6H PRN PRN (Reason: abdominal pain) Qty: 20 0RF ondansetron 4 mg tablet,disintegrating 8 mg PO Q8H PRN PRN (Reason: Nausea) Qty: 20 0RF magnesium citrate [Citroma] Solution 300 ml PO DAILY PRN (Reason: constipation) Qty: 296 0RF ondansetron [ondansetron] 4 mg tablet,disintegrating 4 mg PO Q8H PRN PRN (Reason: Nausea) Qty: 10 0RF citalopram 40 mg tablet 40 mg PO DAILY amlodipine 10 mg tablet 10 mg PO DAILY Qty: 90 3RF valsartan 320 mg tablet 160 mg PO BID Qty: 90 3RF levothyroxine 175 mcg tablet 175 mcg PO DAILY Qty: 30 1RF Primary Care Provider: Halina Johnson Referrals: Halina Johnson, [Primary Care Provider] - Disposition Disposition: Home, Self Care
[2023-01-07] MEDS: Metoclopramide 10 MG Tablet PO (04:25)
[2023-01-07 04:28] VITALS: BP 150/70; PULSE 78; RESP 18
== END 2023-01-07 04:28 | disposition home or self-care (01) ==
PROVIDERS: Emergency Provider Student in an Organized Health Care Education/Training Program; PCP Family Medicine; Visit Provider Student in an Organized Health Care Education/Training Program
DX: R20.2 Paresthesia of skin (principal); M54.50 Low back pain, unspecified; M79.601 Pain in right arm; R07.9 Chest pain, unspecified; I10 Essential (primary) hypertension; Z79.899 Other long term (current) drug therapy
CPT/HCPCS: 99282

== ENCOUNTER 2023-01-08 03:08 | Emergency (ER) | payer MEDICARE, MEDICAID, SELFPAY ==
[2023-01-08] VITALS (7 sets, daily range): BP systolic 118–156; BP diastolic 76–99; PULSE 69–81; RESP 15–16; TEMP 36.2; O2SAT 96–98; BMI 51.0
--- NOTE | 2023-01-08 03:10 | EKG12_ITS ---
Test Reason : CP Blood Pressure : / mmHG Vent. Rate : 071 BPM Atrial Rate : 071 BPM P-R Int : 168 ms QRS Dur : 086 ms QT Int : 424 ms P-R-T Axes : 048 011 186 degrees QTc Int : 460 ms Sinus rhythm with marked sinus arrhythmia Nonspecific ST and T wave abnormality Prolonged QT Abnormal ECG Confirmed by MIGUEL GONZALEZ, MAGALI ([id number]), advertising editor ZANDER MAYER ([id number]) on 01/19/2023 9:48:42 AM Referred By: REINA Confirmed By:MAGALI RIVERA MD
--- NOTE | 2023-01-08 03:10 | RAD_ITS ---
EXAM: XR CHEST, 1 VIEW CLINICAL INDICATION: chest pain TECHNIQUE: Frontal view of the chest. COMPARISON: Single view chest 01/06/2023 FINDINGS: LUNGS AND PLEURAL SPACES: Unremarkable. No consolidation or edema. No pneumothorax. No effusion. HEART: Mild enlargement of the cardiac silhouette. MEDIASTINUM: Central airways and mediastinal contour are unremarkable. BONES/JOINTS: Unremarkable. SOFT TISSUES: Unremarkable. RAD/Chest 1 View (Portable) IMPRESSION: No acute findings in the chest. Electronically Signed: Maury Lin MD at 4:33 EST ,
--- NOTE | 2023-01-08 03:35 | ED.VIS.CHEST ---
HPI History of Present Illness Chief Complaint: Chest Pain Narrative Narrative: 52-year-old female presenting with chest pain. She states it woke her from sleep. She describes it as sharp. She states she was sweaty. She states she feels generally weak. Patient with recent admission for chest pain and had a negative stress test and echocardiogram at the end of last month. Denies fever, chills, cough. Patient with known constipation as has been her at least 3 times this week with constipation issues. She was seen last and given Reglan and GoLytely. She states she drank this until she felt nauseous. She still states she has not had a bowel movement. She is not complaining of abdominal pain today. [facility] Medical History Abnormal glucose Anemia Anxiety Arthritis Asthma BiPAP (biphasic positive airway pressure) dependence Cardiac murmur Cardiology follow-up encounter Celiac disease Chest pain Cholelithiasis Chronic kidney disease Constipation COPD (chronic obstructive pulmonary disease) Depression Diabetes Diabetes mellitus Dietary restriction Difficulty swallowing Dyspnea on exertion Easy bruising Essential hypertension Gastric reflux GERD (gastroesophageal reflux disease) Gout History of chronic back pain History of chronic kidney disease History of echocardiogram History of edema History of pain when walking History of stress test Hydronephrosis Hyperlipidemia Hypersomnia Hypertension Hypertension Hypothyroidism Injury of head and neck Iron deficiency anemia Kidney stones Leg cramps Microcytic anemia Migraine headache Morbid obesity with BMI of 40.0-44.9, adult Non-smoker Noncompliance DAVY treated with BiPAP Post-menopausal Pulmonary embolism Restless leg syndrome Seasonal allergies Shortness of breath on exertion Syncope Thyroid disease Ureterolithiasis UTI (urinary tract infection) Vitamin B12 deficiency Vitamin D deficiency Wears glasses Home Medications citalopram 40 mg tablet 40 mg PO DAILY antidepressant/antianxiety 07/27/19 [History Last Taken 05/04/22] budesonide-formoterol HFA 160 mcg-4.5 mcg/actuation aerosol inhaler (Symbicort) 2 puff inhalation BID inhaler 04/02/20 [History Last Taken 05/04/22] ubrogepant 100 mg tablet (Ubrelvy) 100 mg PO DAILY migraines 04/02/20 [History Last Taken 05/04/22] rimegepant 75 mg disintegrating tablet (Nurtec ODT) 75 mg PO ONCE migraines 06/19/20 [History Last Taken 05/04/22] fluticasone fur. 100 mcg-umeclid 62.5 mcg-vilant 25 mcg inhalat.powder (Trelegy Ellipta) 1 ea inhalation DAILY COPD 08/14/20 [History Last Taken 05/04/22] gabapentin 100 mg capsule 100 mg PO TID neuropathy 09/30/20 [History Last Taken 05/04/22] galcanezumab-gnlm 120 mg/mL subcutaneous pen injector (Emgality Pen) 120 mg subcut QMONTH MIGRAINES 08/19/21 [History Last Taken 09/26/22] tizanidine 4 mg tablet 4 mg PO QHS PRN muscle relaxer 03/03/22 [History Last Taken 05/03/22] atogepant 60 mg tablet (Qulipta) 60 mg PO DAILY MIGRAINES 05/04/22 [History Last Taken 05/04/22] lorazepam 1 mg tablet 1 mg PO TID PRN Anxiety 05/04/22 [History Last Taken Unknown] promethazine 25 mg tablet 25 mg PO Q4H PRN nausea and vomiting #20 tabs 05/14/22 [Rx Last Taken Unknown] progesterone micronized 200 mg capsule 200 mg PO DAILY hormones 10/11/22 [History Last Taken Unknown] tramadol 50 mg tablet 50 mg PO TID pain 10/11/22 [History Last Taken Unknown] amlodipine 10 mg tablet 10 mg PO DAILY blood pressure #90 tabs 10/28/22 [Rx Last Taken Unknown] valsartan 320 mg tablet 160 mg (1/2 x 320 mg) PO BID BLOOD PRESSURE #90 tabs 10/28/22 [Rx Last Taken Unknown] albuterol sulfate 90 mcg/actuation breath activated powder inhaler (ProAir RespiClick) 2 inh inhalation 4X/DAY PRN Shortness Of Breath #1 ea 11/07/22 [Rx Last Taken Unknown] doxycycline monohydrate 100 mg capsule 100 mg PO BID #14 CAPSULES 11/12/22 [Rx Last Taken Unknown] levothyroxine 175 mcg tablet 175 mcg PO DAILY order as courtesy until pt sees PCP 11/25/22 #30 tabs 11/18/22 [Rx Last Taken Unknown] cefdinir 300 mg capsule 300 mg PO BID #14 caps 12/04/22 [Rx Last Taken Unknown] dicyclomine 10 mg capsule 20 mg (2 x 10 mg) PO Q6H PRN PRN abdominal pain #20 CAPSULES 12/20/22 [Rx Last Taken Unknown] ondansetron 4 mg disintegrating tablet 8 mg (2 x 4 mg) PO Q8H PRN PRN Nausea #20 tabs 12/20/22 [Rx Last Taken Unknown] albuterol sulfate 90 mcg/actuation aerosol inhaler 2 puff inhalation Q4H PRN shortness of breath or wheezing 12/25/22 [History Last Taken Unknown] atorvastatin 80 mg tablet 80 mg PO QHS #30 tabs 12/25/22 [Rx Last Taken Unknown] magnesium citrate (Citroma oral solution) 300 ml PO DAILY PRN constipation #296 mL 01/02/23 [Rx Last Taken Unknown] ondansetron 4 mg disintegrating tablet 4 mg PO Q8H PRN PRN Nausea #10 tabs 01/03/23 [Rx Last Taken Unknown] metoclopramide HCl 10 mg tablet (Reglan) 10 mg PO Q6H PRN nausea and vomiting #20 tabs 01/07/23 [Rx Last Taken Unknown] peg 3350 240 gram-electrolytes 22.72 gram-6.72 g-5.84 g powdr for soln (Gavilyte-C) 240 ml PO Q10M PRN #4,000 mL 01/07/23 [Rx Last Taken Unknown] Allergy/AdvReac Type Severity Reaction Status Date / Time hydrochlorothiazide AdvReac Intermediate Contributes Verified 01/08/23 03:16 to gout naproxen [From Naprosyn] AdvReac Intermediate Nausea Verified 01/08/23 03:16 aspirin AdvReac Nausea Verified 01/08/23 03:16 Family History Father , Age 72 Hypertension Mother CAD (coronary artery disease) Myocardial infarction, Onset Age: 55 Hypertension Sister CAD (coronary artery disease) Brother Cancer Surgical History History of History of cardiac catheterization History of carpal tunnel surgery of left wrist History of carpal tunnel surgery of right wrist History of left heart catheterization (11/11/20) history of uterine ablation Hx of cystoscopy Social History household members: none housing: apartment Smoking Status: Never smoker alcohol intake: never substance use type: does not use caffeine: No ROS ROS ED Constitutional Constitutional ED: Denies chills, fever(s) or sweats Eyes Eyes: Denies blurry vision or change in vision ENT ENT ED: Denies ear pain or sore throat Cardiovascular Cardiovascular: Reports chest pain; Denies palpitations or racing heartbeat Respiratory/Chest Respiratory/Chest: Reports dyspnea; Denies cough or sputum Gastrointestinal Gastrointestinal: Denies abdominal pain, constipation, diarrhea, nausea or vomiting Genitourinary Genitourinary ED: Denies dysuria, hematuria or urinary frequency Musculoskeletal Musculoskeletal: Denies arthralgias, myalgias or neck pain Integumentary Denies abscess, Abrasions or rash Neurologic Neurologic: Denies headache(s), paresthesias or weakness Psychiatric Psychiatric: Denies anxiety, depression, suicidal ideation or suicidal thoughts Endocrine Endocrinology: Denies polydipsia or polyuria EXAM Physical Exam Const Vital Signs: 01/08/23 03:11 01/08/23 03:10 01/08/23 04:07 Temperature 97.1 F L Temperature Source Temporal Pulse Rate 76 69 Respiratory Rate 15 Blood Pressure 134/76 H 147/94 H Blood Pressure Mean 95 Pulse Ox 96 98 Oxygen Delivery Method Room Air Room Air 01/08/23 04:08 01/08/23 04:13 01/08/23 04:20 Temperature Temperature Source Pulse Rate 73 81 75 Respiratory Rate Blood Pressure 118/83 H 119/79 Blood Pressure Mean Pulse Ox Oxygen Delivery Method Positive obese General Appearance ED: NAD; Negative for pallor Nutritional Appearance: obese HEENT Reports moist mucous membranes normocephalic Eyes PERRL and EOMs intact bilaterally Chest Wall inspection of chest normal Resp normal respiratory effort and clear to auscultation bilaterally Auscultation: Negative for rales, rhonchi or wheezes Cardio regular rate and regular rhythm GI normal to inspection, nondistended, normoactive bowel sounds Psych mental status grossly normal Skin no rashes or lesions noted General Skin Exam: Negative for jaundice or pallor Heart Score History: Slightly/Non-Suspicious ECG: Normal Age: >45 - <65 years Risk Factors: >/= 3 Risk Factors or History of CAD Score: 3 MDM MDM MDM Narrative Medical decision making narrative: Differential includes but is not limited to ACS, pneumonia, muscle strain, costochondritis, dehydration, electrolyte abnormalities. Considered PE however patient is PERC negative. Pneumothorax was considered however patient has equal shortness of breath sounds and chest wall rise. CBC will be obtained to assess white blood cell count, hemoglobin, platelets. BMP to assess renal function, electrolytes. High-sensitivity troponin and EKG to assess for ischemia/dysrhythmia. Chest x-ray to rule out pneumonia. CBC showed a normal white blood cell count 11.6. Hemoglobin 11.7. Platelets are normal at 336. Creatinine at baseline 1.15. LFTs are normal. High-sensitivity opponent is 8. EKG on my interpretation shows a sinus rhythm at [address]-T wave changes. No specific changes since December 17, 2022. Chest x-ray my interpretation shows no acute process. The radiologist interprets this and agrees. Patient was given nitroglycerin for her chest pain which did improve but she developed a headache. She was given Reglan and Benadryl for headache. We will obtain a delta troponin. Delta troponin is 9 therefore there is no significant interval change. On reevaluation the patient states he still has a headache and requested Tylenol. She was given this. I feel patient is stable for discharge at this time. All questions were answered. Impression: 1. Chest pain 2. Headache Lab Data Labs: Laboratory Results - last 24 hr 01/08/23 01/08/23 03:38 05:35 WBC 11.6 H RBC 3.61 L Hgb 11.7 L Hct 36.9 L MCV 102.2 H MCH 32.4 H MCHC 31.7 L RDW Std Deviation 66.4 H RDW Coeff of Alfredo 17.8 H Plt Count 366 MPV 9.5 Immature Gran % (Auto) 0.800 Neut % (Auto) 67.1 Lymph % (Auto) 18.3 L Sharkey % (Auto) 7.8 Eos % (Auto) 5.2 H Baso % (Auto) 0.8 Absolute Neuts (auto) 7.8 H Absolute Lymphs (auto) 2.13 Nucleated RBC % 0 Atypical Lymphocytes 1+ Toxic Granulation 2+ Plt Morphology Comment LARGE Anisocytosis 1+ Sodium 139 Potassium 3.5 Chloride 106 Carbon Dioxide 26.0 Anion Gap 7 BUN 8 Creatinine 1.15 H Estim Creat Clear Calc 49.41 Est GFR (MDRD) Af Amer 64 Est GFR (MDRD) Non-Af 53 L BUN/Creatinine Ratio 7.0 L Glucose 120 H Calcium 9.1 Total Bilirubin 0.50 Direct Bilirubin 0.11 AST 25 ALT 31 Alkaline Phosphatase 100 Troponin I High Sens 8 9 Total Protein 7.5 Albumin 3.4 Globulin 4.1 Lipase 41 Radiography Diagnostic Testing: Clinical Impression(s) from Imaging Studies Chest X-Ray 01/08/23 03:10 IMPRESSION: No acute findings in the chest. Electronically Signed: Maury Lin MD at 4:33 EST , Discharge Plan Triage Chief Complaint: Chest Pain ED Provider: Claudio Roach Dx/Rx/DC Orders Instructions: ED Chest Pain, Uncertain Cause Prescriptions: No Action Ubrelvy 100 mg tablet 100 mg PO DAILY Rx Instructions: as a single dose; may repeat once in >=2 hours after first dose if needed budesonide-formoterol [Symbicort] 160-4.5 mcg/actuation HFA aerosol inhaler 2 puff INHALATION BID Nurtec ODT 75 mg tablet,disintegrating 75 mg PO ONCE gabapentin 100 mg capsule 100 mg PO TID Emgality Pen 120 mg/mL pen injector 120 mg subcut QMONTH tizanidine 4 mg tablet 4 mg PO QHS PRN (Reason: muscle relaxer) Trelegy Ellipta 100-62.5-25 mcg blister with device 1 ea INHALATION DAILY lorazepam 1 mg tablet 1 mg PO TID PRN (Reason: Anxiety) Qulipta 60 mg tablet 60 mg PO DAILY promethazine 25 mg tablet 25 mg PO Q4H PRN (Reason: nausea and vomiting) Qty: 20 0RF tramadol 50 mg tablet 50 mg PO TID Patient Comments: TAKE 1 TABLET BY MOUTH THREE TIMES DAILY FOR 28 DAYS progesterone micronized 200 mg capsule 200 mg PO DAILY Patient Comments: Take 2 capsules at bedtime ProAir RespiClick 90 mcg/actuation aerosol powdr breath activated 2 inh INHALATION 4X/DAY PRN (Reason: Shortness Of Breath) Qty: 1 0RF doxycycline monohydrate 100 mg capsule 100 mg PO BID Qty: 14 0RF Hold Instructions: not taking albuterol sulfate 90 mcg/actuation HFA aerosol inhaler 2 puff inhalation Q4H PRN (Reason: shortness of breath or wheezing) Patient Comments: Two puffs every four hours as needed atorvastatin 80 mg Tablet 80 mg PO QHS Qty: 30 0RF cefdinir 300 mg capsule 300 mg PO BID Qty: 14 0RF Hold Instructions: not taking dicyclomine 10 mg capsule 20 mg PO Q6H PRN PRN (Reason: abdominal pain) Qty: 20 0RF ondansetron 4 mg tablet,disintegrating 8 mg PO Q8H PRN PRN (Reason: Nausea) Qty: 20 0RF magnesium citrate [Citroma] Solution 300 ml PO DAILY PRN (Reason: constipation) Qty: 296 0RF ondansetron [ondansetron] 4 mg tablet,disintegrating 4 mg PO Q8H PRN PRN (Reason: Nausea) Qty: 10 0RF metoclopramide HCl [Reglan] 10 mg tablet 10 mg PO Q6H PRN (Reason: nausea and vomiting) Qty: 20 0RF GaviLyte-C 240-22.72-6.72 -5.84 gram recon soln 240 ml PO Q10M PRN Qty: 4000 0RF Rx Instructions: until fecal effluent is clear citalopram 40 mg tablet 40 mg PO DAILY amlodipine 10 mg tablet 10 mg PO DAILY Qty: 90 3RF valsartan 320 mg tablet 160 mg PO BID Qty: 90 3RF levothyroxine 175 mcg tablet 175 mcg PO DAILY Qty: 30 1RF Primary Care Provider: Halina Johnson Referrals: Halian Johnson, [Primary Care Provider] - Disposition Disposition: Home, Self Care
[2023-01-08 03:46] LABS: Absolute Lymphocyte Count 2.13 X10^3/uL (0.83-4.51); Absolute Neutrophil Count 7.8 X10^3/uL (2.0-7.7); Basophil# 0.09 X10^3/uL; Basophil% 0.8 % (0-1); Eosinophil# 0.61 X10^3/uL; Eosinophils% 5.2 % (0-5); Hematocrit 36.9 % (37-47); Hemoglobin 11.7 g/dL (12.0-15.0); Lymphocyte # 2.13 X10^3/ul (0.83-4.51); Lymphocyte % 18.3 % (19-41); Mean Corp Hgb Conc 31.7 g/dL (32-36); Mean Corpuscular Hgb 32.4 pg (27.0-32.0); Mean Corpuscular Volume 102.2 fL (81-99); Mean Platelet Vol. 9.5 fl (6.2-12.0); Monocyte# 0.91 X10^3/uL; Monocyte% 7.8 % (0-10); NRBC Flagged by Analyzer 0 % (0-5); Neutrophil # 7.81 X10^3/uL (2.7-7.7); Neutrophil % 67.1 % (47-70); POSITIVE MORPHOLOGY YES; Platelet Count 366 K/mm3 (150-450); RBC Distribution Width CV 17.8 % (11.6-14.6); RBC Distribution Width SD 66.4 fl (35.1-43.9); Red Blood Count 3.61 M/mm3 (4.2-5.4); White Blood Count 11.6 K/mm3 (4.4-11.0)
[2023-01-08 03:51] LABS: Differential Indicated SCAN CRITERIA MET
[2023-01-08] MEDS: Nitroglycerin SL (ED/IMG/CATH) 0.4 MG TABLET SL ×3 (04:07→04:20)
[2023-01-08 04:17] LABS: AST(SGOT) 25 U/L (15-37); Alanine Aminotransfer ALT/SGPT 31 U/L (13-56); Albumin, Serum 3.4 g/dL (3.2-5.0); Alkaline Phosphatase 100 U/L (45-117); Anion Gap 7 (5-15); BUN 8 mg/dL (7-18); Bilirubin, Direct 0.11 mg/dL (0.00-0.30); Calcium,Total 9.1 mg/dL (8.5-10.1); Chloride 106 mmol/L (98-107); Creatinine, Serum 1.15 mg/dL (0.55-1.02); EST Glomerular Filtration Rate 53 mL/min (>60); Est Glom Filt Rate - Afr Amer 64 mL/min (>60); Estimated Creatinine Clearance 49.41 ml/min; Globulin 4.1 g/dL (2.2-4.2); Glucose 120 mg/dL (74-106); Lipase 41 U/L (13-75); Potassium 3.5 mmol/L (3.5-5.1); Protein, Total 7.5 g/dL (6.4-8.2); Sodium Level 139 mmol/L (136-145); Troponin-I HS 8 pg/mL (3.0-54.0)
[2023-01-08 04:21] LABS: Anisocytosis 1+; Atypical Lymphocyte 1+ %; Platelet Morphology LARGE; Toxic Granulation 2+
[2023-01-08] MEDS: DiphenhydrAMINE 50 MG/ML Syringe 25 MG IV (04:36)
[2023-01-08] MEDS: Metoclopramide 10 MG/2 ML Vial IV (04:36)
[2023-01-08 05:56] LABS: Troponin-I HS 9 pg/mL (3.0-54.0)
[2023-01-08] MEDS: Acetaminophen 500 MG Tablet 1000 MG PO (06:28)
== END 2023-01-08 06:33 | disposition home or self-care (01) ==
PROVIDERS: Emergency Provider Student in an Organized Health Care Education/Training Program; PCP Family Medicine; Visit Provider Student in an Organized Health Care Education/Training Program
DX: R07.9 Chest pain, unspecified (principal); J44.9 Chronic obstructive pulmonary disease, unspecified; E11.22 Type 2 diabetes mellitus with diabetic chronic kidney disease; R51.9 Headache, unspecified; N18.9 Chronic kidney disease, unspecified; G47.33 Obstructive sleep apnea (adult) (pediatric); E66.9 Obesity, unspecified; Z86.711 Personal history of pulmonary embolism
CPT/HCPCS: 71045; 80048; 80076; 83690; 84484; 85025; 93005; 96374; 96375; 99285; A4216

== ENCOUNTER 2023-01-12 10:14 | Emergency (ER) | payer MEDICARE, MEDICAID, SELFPAY ==
[2023-01-12 10:15] VITALS: BP 175/112; PULSE 82; RESP 16; TEMP 35.8; O2SAT 100; BMI 46.8
--- NOTE | 2023-01-12 10:28 | EKG12_ITS ---
Test Reason : ARM PAIN Blood Pressure : / mmHG Vent. Rate : 066 BPM Atrial Rate : 066 BPM P-R Int : 144 ms QRS Dur : 084 ms QT Int : 412 ms P-R-T Axes : 075 -18 174 degrees QTc Int : 431 ms Normal sinus rhythm with sinus arrhythmia Low voltage QRS ST & T wave abnormality, consider lateral ischemia Abnormal ECG Confirmed by MIGUEL GONZALEZ, MAGALI ([id number]), assistant production editor ZANDER MAYER ([id number]) on 01/19/2023 10:51:53 AM Referred By: Confirmed By:MAGALI RIVERA MD
--- NOTE | 2023-01-12 10:28 | CT_ITS ---
STUDY: CT BRAIN WITHOUT CONTRAST REASON FOR EXAM: Female, 52 years old. Confusion, headaches. RADIATION DOSAGE (If Supplied By Facility): CTDIvol = ( 44.99 ) mGy, DLP = ( 829.85 ) mGycm TECHNIQUE: Transaxial CT imaging of the brain was performed without administration of intravenous contrast material. Individualized dose optimization techniques were used for this CT. COMPARISON: Comparison is made with prior study dated December 04, 2022. FINDINGS: Normal soft tissue structures. Normal calvarium. Normal size ventricles and extra-axial spaces for the patient''s age. Normal white matter tracts of the cerebral hemispheres. Normal basal ganglia and thalami. Normal brainstem. Normal cerebellum. There is no intracranial hemorrhage. There are no findings of an acute ischemic infarction. Normal visualized paranasal sinuses. CT/Brain/Head without Contrast IMPRESSION: Normal unenhanced CT scan of the brain. Electronically Signed: Seun Vieira MD at 11:54 EST ,
--- NOTE | 2023-01-12 10:28 | VDUE_ITS ---
Reason For Study: Right arm pain Right Proximal Right jugular vein is spontaneous, widely patent, phasic, with no intraluminal echogenicity noted. Right subclavian vein is spontaneous, widely patent, phasic, with no intraluminal echogenicity noted. Right Lower Arm Right radial vein is compressible. Right ulnar vein is compressible. Right Arm Right axillary vein is spontaneous, patent, phasic, competent, compressible and demonstrates augmentation. Right brachial vein is compressible. Right cephalic vein is compressible. Right basilic vein is compressible. Patient Safety Preliminary report given to ED. VL/Venous Duplex US, Unilateral Interpretation Summary No evidence for acute deep venous thrombosis[right] upper extremity with patent and compressible cephalic and basilic veins. Ordering Physician: Brianna Brewster Referring Physician: Halina Johnson Performed By: Franci Gurrola RVT ???
--- NOTE | 2023-01-12 10:31 | EDS_ITS ---
HPI History of Present Illness Chief Complaint: Back Detail of Chief Complaint: Multiple complaints, confusion, back pain, par esthesias Informant: patient Narrative Narrative: Patient presents to the emergency department complaint of not feeling well. Patient states that she has had paresthesias in her right arm and right leg for 3 to 4 months. Patient was admitted for this and was told may have had a stroke. Her right arm feels heavy like it swollen. This morning she woke up and was confused about where she was. She complains of some low back discomfort and feeling like there is a fluid pocket that she has had for months as well. She denies any fevers. She has had a mild cough. She describes some dysuria. Patient denies any falls or injuries to her back. [facility] Medical History Abnormal glucose Anemia Anxiety Arthritis Asthma BiPAP (biphasic positive airway pressure) dependence Cardiac murmur Cardiology follow-up encounter Celiac disease Chest pain Cholelithiasis Chronic kidney disease Constipation COPD (chronic obstructive pulmonary disease) Depression Diabetes Diabetes mellitus Dietary restriction Difficulty swallowing Dyspnea on exertion Easy bruising Essential hypertension Gastric reflux GERD (gastroesophageal reflux disease) Gout History of chronic back pain History of chronic kidney disease History of echocardiogram History of edema History of pain when walking History of stress test Hydronephrosis Hyperlipidemia Hypersomnia Hypertension Hypertension Hypothyroidism Injury of head and neck Iron deficiency anemia Kidney stones Leg cramps Microcytic anemia Migraine headache Morbid obesity with BMI of 40.0-44.9, adult Non-smoker Noncompliance DAVY treated with BiPAP Post-menopausal Pulmonary embolism Restless leg syndrome Seasonal allergies Shortness of breath on exertion Syncope Thyroid disease Ureterolithiasis UTI (urinary tract infection) Vitamin B12 deficiency Vitamin D deficiency Wears glasses Home Medications citalopram 40 mg tablet 40 mg PO DAILY antidepressant/antianxiety 07/27/19 [History Last Taken 05/04/22] budesonide-formoterol HFA 160 mcg-4.5 mcg/actuation aerosol inhaler (Symbicort) 2 puff inhalation BID inhaler 04/02/20 [History Last Taken 05/04/22] ubrogepant 100 mg tablet (Ubrelvy) 100 mg PO DAILY migraines 04/02/20 [History Last Taken 05/04/22] rimegepant 75 mg disintegrating tablet (Nurtec ODT) 75 mg PO ONCE migraines 06/19/20 [History Last Taken 05/04/22] fluticasone fur. 100 mcg-umeclid 62.5 mcg-vilant 25 mcg inhalat.powder (Trelegy Ellipta) 1 ea inhalation DAILY COPD 08/14/20 [History Last Taken 05/04/22] gabapentin 100 mg capsule 100 mg PO TID neuropathy 09/30/20 [History Last Taken 05/04/22] galcanezumab-gnlm 120 mg/mL subcutaneous pen injector (Emgality Pen) 120 mg subcut QMONTH MIGRAINES 08/19/21 [History Last Taken 09/26/22] tizanidine 4 mg tablet 4 mg PO QHS PRN muscle relaxer 03/03/22 [History Last Taken 05/03/22] atogepant 60 mg tablet (Qulipta) 60 mg PO DAILY MIGRAINES 05/04/22 [History Last Taken 05/04/22] lorazepam 1 mg tablet 1 mg PO TID PRN Anxiety 05/04/22 [History Last Taken Unknown] promethazine 25 mg tablet 25 mg PO Q4H PRN nausea and vomiting #20 tabs 05/14/22 [Rx Last Taken Unknown] progesterone micronized 200 mg capsule 200 mg PO DAILY hormones 10/11/22 [History Last Taken Unknown] tramadol 50 mg tablet 50 mg PO TID pain 10/11/22 [History Last Taken Unknown] amlodipine 10 mg tablet 10 mg PO DAILY blood pressure #90 tabs 10/28/22 [Rx Last Taken Unknown] valsartan 320 mg tablet 160 mg (1/2 x 320 mg) PO BID BLOOD PRESSURE #90 tabs 10/28/22 [Rx Last Taken Unknown] albuterol sulfate 90 mcg/actuation breath activated powder inhaler (ProAir RespiClick) 2 inh inhalation 4X/DAY PRN Shortness Of Breath #1 ea 11/07/22 [Rx Last Taken Unknown] doxycycline monohydrate 100 mg capsule 100 mg PO BID #14 CAPSULES 11/12/22 [Rx Last Taken Unknown] levothyroxine 175 mcg tablet 175 mcg PO DAILY order as courtesy until pt sees PCP 11/25/22 #30 tabs 11/18/22 [Rx Last Taken Unknown] cefdinir 300 mg capsule 300 mg PO BID #14 caps 12/04/22 [Rx Last Taken Unknown] dicyclomine 10 mg capsule 20 mg (2 x 10 mg) PO Q6H PRN PRN abdominal pain #20 CAPSULES 12/20/22 [Rx Last Taken Unknown] ondansetron 4 mg disintegrating tablet 8 mg (2 x 4 mg) PO Q8H PRN PRN Nausea #20 tabs 12/20/22 [Rx Last Taken Unknown] albuterol sulfate 90 mcg/actuation aerosol inhaler 2 puff inhalation Q4H PRN shortness of breath or wheezing 12/25/22 [History Last Taken Unknown] atorvastatin 80 mg tablet 80 mg PO QHS #30 tabs 12/25/22 [Rx Last Taken Unknown] magnesium citrate (Citroma oral solution) 300 ml PO DAILY PRN constipation #296 mL 01/02/23 [Rx Last Taken Unknown] ondansetron 4 mg disintegrating tablet 4 mg PO Q8H PRN PRN Nausea #10 tabs 01/03/23 [Rx Last Taken Unknown] metoclopramide HCl 10 mg tablet (Reglan) 10 mg PO Q6H PRN nausea and vomiting #20 tabs 01/07/23 [Rx Last Taken Unknown] peg 3350 240 gram-electrolytes 22.72 gram-6.72 g-5.84 g powdr for soln (Gavilyte-C) 240 ml PO Q10M PRN #4,000 mL 01/07/23 [Rx Last Taken Unknown] Allergy/AdvReac Type Severity Reaction Status Date / Time hydrochlorothiazide AdvReac Intermediate Contributes Verified 01/08/23 03:16 to gout naproxen [From Naprosyn] AdvReac Intermediate Nausea Verified 01/08/23 03:16 aspirin AdvReac Nausea Verified 01/08/23 03:16 Family History Father , Age 72 Hypertension Mother CAD (coronary artery disease) Myocardial infarction, Onset Age: 55 Hypertension Sister CAD (coronary artery disease) Brother Cancer Surgical History History of History of cardiac catheterization History of carpal tunnel surgery of left wrist History of carpal tunnel surgery of right wrist History of left heart catheterization (11/11/20) history of uterine ablation Hx of cystoscopy Social History household members: none housing: apartment Smoking Status: Never smoker alcohol intake: never substance use type: does not use caffeine: No ROS ROS ED Review of Systems ROS Unobtainable: other Constitutional Constitutional ED: Reports lethargy; Denies chills, fever(s), sweats or weight loss Eyes Eyes: Denies blurry vision, change in vision or diplopia ENT ENT ED: Denies rhinorrhea or sore throat Cardiovascular Cardiovascular: Denies chest pain, orthopnea or racing heartbeat Respiratory/Chest Respiratory/Chest: Reports cough; Denies dyspnea, dyspnea on exertion, orthopnea or sputum Gastrointestinal Gastrointestinal: Denies abdominal pain, diarrhea, nausea or vomiting Genitourinary Genitourinary ED: Reports dysuria; Denies hematuria or urinary frequency Musculoskeletal Musculoskeletal: Reports back pain and other Details: Right arm swelling ; Denies arthralgias, myalgias or neck pain Integumentary Denies abscess, Abrasions or rash Neurologic Neurologic: Reports paresthesias and other Details: Confusion ; Denies headache(s) or weakness Psychiatric Psychiatric: Denies anxiety, depression or suicidal thoughts Endocrine Endocrinology: Denies polydipsia, polyphagia or polyuria Hematologic/Lymphatic Hematologic/Lymphatic: Denies easy bleeding, easy bruising or lymphadenopathy Allergic/Immunologic Allergic/Immunologic ED: Denies mouth swelling, tongue swelling or urticaria EXAM Physical Exam Const Vital Signs: 01/12/23 10:15 01/12/23 12:15 01/12/23 14:00 Temperature 96.5 F L Temperature Source Temporal Pulse Rate 82 61 62 Respiratory Rate 16 16 Blood Pressure 175/112 H 155/110 H 170/69 H Blood Pressure Mean 133 125 102 Pulse Ox 100 Oxygen Delivery Method Room Air Positive well nourished and well developed General Appearance ED: well developed and NAD HEENT Reports TM's clear and moist mucous membranes normocephalic and atraumatic; Negative for trauma or tenderness Tympanic Membrane ED: Yes TM's clear Eyes PERRL and EOMs intact bilaterally General Eye ED: Negative for pale conjunctiva or scleral icterus Neck no lymphadenopathy, supple and no JVD General: Negative for tenderness Chest Wall inspection of chest normal and palpation of chest normal Chest: Negative for tenderness Resp normal respiratory effort and clear to auscultation bilaterally Effort and Inspection: Negative for respiratory distress or pain with movement Auscultation: Negative for rhonchi, wheezes or diminished lung sounds Cardio regular rate, regular rhythm, S1 normal heart sound, S2 normal heart sound and no murmurs Peripheral Pulses: pulses 2+ throughout GI normal to inspection, nondistended, normoactive bowel sounds, soft to palpation, non-tender, non-distended and no masses Back/Spine no CVA tenderness and no thoracic nor lumbar tenderness Back/Spine Narrative: No abnormalities noted to the back as far as the soft tissues. No significant bony tenderness on exam of her back thoracic and lumbar spine. Negative straight leg raises. Deep tendon reflexes plus 2 out of 4 bilaterally at the patella and Achilles. Patient has normal L5 extension. Extremity normal to inspection Extremity Narrative: Do not appreciate any significant edema to the right arm compared to the left. No ropes or cords palpated. She is neurovascular intact. General Extremety ED: Negative for edema General Extremity: Negative for edema Neuro oriented x3, CN's II-XII intact bilaterally, no sensory deficits noted and gait normal Sensorium / Orientation: awake, alert, oriented to person, oriented to place and oriented to time Motor Exam: strength 5/5 throughout and strength abnormal Psych mental status grossly normal Skin no rashes or lesions noted and no wounds MDM MDM MDM Narrative Medical decision making narrative: Patient presents to the emergency department with multiple complaints today of which right low back pain as well as dizziness and paresthesias in her right arm. The paresthesias have been chronic for months and she has been evaluated for this including with MRI of her brain and C-spine. Patient does have osteophytes in the cervical spine impinging on the ventral cord. IV line established. EKG obtained arrival showed a sinus rhythm with rate of [address] changes. CBC with differential showed a white count of 12.2 with hemoglobin of 13.7. Chemistries unremarkable. BUN 9 and creatinine 1.26. LFTs were normal. Troponin normal at 7. CT scan of the brain without contrast unremarkable. Patient had also had a venous Doppler of the right upper extremity which showed no evidence of DVT. I ordered a urinalysis and patient had told me that she can give me a urine sample and while waiting for patient to give a urine sample patient eloped from the emergency department. Etiology of her back pain unclear this is partly why we wanted to get the urinalysis. She has had recent CT scan of the abdomen and pelvis within the last 10 days that showed an small punctate nephrolithiasis but no urolithiasis. Etiology of patient's symptoms unclear. Plan was initially to refer patient to back specialist regarding the findings on her MRI of her cervical spine as this may be contributing to the paresthesias in her right arm and leg. Patient again however eloped prior to treatment completion and prior to exit interview. While in the department she did complain of chest discomfort and had a repeat EKG performed at the time of chest discomfort which is unchanged from first EKG. Patient has had similar chest discomfort in the past multiple times. She denies feeling short of breath or sweaty with it and no real radiation of the pain. Lab Data Attestation: I reviewed the patient's lab results. Labs: Laboratory Results - last 24 hr 01/12/23 10:40 WBC 12.2 H RBC 4.15 L Hgb 13.7 Hct 44.3 MCV 106.7 H MCH 33.0 H MCHC 30.9 L RDW Std Deviation 73.5 H RDW Coeff of Alfredo 18.4 H Plt Count Immature Gran % (Auto) 0.500 Neut % (Auto) 74.4 H Lymph % (Auto) 15.1 L [place] % (Auto) 5.9 Eos % (Auto) 3.2 Baso % (Auto) 0.9 Absolute Neuts (auto) 9.1 H Absolute Lymphs (auto) 1.85 Nucleated RBC % 0 Differential Comment SCANNED Platelet Estimate ADEQUATE Sodium 138 Potassium 3.7 Chloride 107 Carbon Dioxide 24.0 Anion Gap 7 BUN 9 Creatinine 1.26 H Estim Creat Clear Calc 45.10 Est GFR (MDRD) Af Amer 57 L Est GFR (MDRD) Non-Af 47 L BUN/Creatinine Ratio 7.1 L Glucose 127 H Calcium 9.4 Total Bilirubin 0.40 AST 31 ALT 27 Alkaline Phosphatase 109 Troponin I High Sens 7 Total Protein 7.6 Albumin 3.5 Globulin 4.1 Albumin/Globulin Ratio 0.9 Radiography Diagnostic Testing: Clinical Impression(s) from Imaging Studies Brain CT 01/12/23 10:28 IMPRESSION: Normal unenhanced CT scan of the brain. Electronically Signed: Seun Vieira MD at 11:54 EST , EKG Initial EKG: Attestation: I personally reviewed and interpreted this EKG as follows: Comments: Sinus rhythm with rate of [address] changes. Second EKG obtained showed sinus rhythm with a rate of [address] changes and unchanged from first EKG. Prior EKG tracings: available for review Prior: Unchanged Discharge Plan Triage Chief Complaint: Back Other Complaint: Headache Upper Extremity Injury ED Provider: Brianna Brewster Dx/Rx/DC Orders Clinical Impression: Paresthesias, Back pain, Arm pain, right, Chest pain Prescriptions: No Action Ubrelvy 100 mg tablet 100 mg PO DAILY Rx Instructions: as a single dose; may repeat once in >=2 hours after first dose if needed budesonide-formoterol [Symbicort] 160-4.5 mcg/actuation HFA aerosol inhaler 2 puff INHALATION BID Nurtec ODT 75 mg tablet,disintegrating 75 mg PO ONCE gabapentin 100 mg capsule 100 mg PO TID Emgality Pen 120 mg/mL pen injector 120 mg subcut QMONTH tizanidine 4 mg tablet 4 mg PO QHS PRN (Reason: muscle relaxer) Trelegy Ellipta 100-62.5-25 mcg blister with device 1 ea INHALATION DAILY lorazepam 1 mg tablet 1 mg PO TID PRN (Reason: Anxiety) Qulipta 60 mg tablet 60 mg PO DAILY promethazine 25 mg tablet 25 mg PO Q4H PRN (Reason: nausea and vomiting) Qty: 20 0RF tramadol 50 mg tablet 50 mg PO TID Patient Comments: TAKE 1 TABLET BY MOUTH THREE TIMES DAILY FOR 28 DAYS progesterone micronized 200 mg capsule 200 mg PO DAILY Patient Comments: Take 2 capsules at bedtime ProAir RespiClick 90 mcg/actuation aerosol powdr breath activated 2 inh INHALATION 4X/DAY PRN (Reason: Shortness Of Breath) Qty: 1 0RF doxycycline monohydrate 100 mg capsule 100 mg PO BID Qty: 14 0RF Hold Instructions: not taking albuterol sulfate 90 mcg/actuation HFA aerosol inhaler 2 puff inhalation Q4H PRN (Reason: shortness of breath or wheezing) Patient Comments: Two puffs every four hours as needed atorvastatin 80 mg Tablet 80 mg PO QHS Qty: 30 0RF cefdinir 300 mg capsule 300 mg PO BID Qty: 14 0RF Hold Instructions: not taking dicyclomine 10 mg capsule 20 mg PO Q6H PRN PRN (Reason: abdominal pain) Qty: 20 0RF ondansetron 4 mg tablet,disintegrating 8 mg PO Q8H PRN PRN (Reason: Nausea) Qty: 20 0RF magnesium citrate [Citroma] Solution 300 ml PO DAILY PRN (Reason: constipation) Qty: 296 0RF ondansetron [ondansetron] 4 mg tablet,disintegrating 4 mg PO Q8H PRN PRN (Reason: Nausea) Qty: 10 0RF metoclopramide HCl [Reglan] 10 mg tablet 10 mg PO Q6H PRN (Reason: nausea and vomiting) Qty: 20 0RF GaviLyte-C 240-22.72-6.72 -5.84 gram recon soln 240 ml PO Q10M PRN Qty: 4000 0RF Rx Instructions: until fecal effluent is clear citalopram 40 mg tablet 40 mg PO DAILY amlodipine 10 mg tablet 10 mg PO DAILY Qty: 90 3RF valsartan 320 mg tablet 160 mg PO BID Qty: 90 3RF levothyroxine 175 mcg tablet 175 mcg PO DAILY Qty: 30 1RF Primary Care Provider: Halina Johnson Referrals: Halina Johnson, [Primary Care Provider] - Disposition Disposition: Elopement
[2023-01-12] MEDS: 0.9% Normal Saline (1000mL) 1,000 ML 150 ML IV (10:50)
[2023-01-12 11:10] LABS: Absolute Lymphocyte Count 1.85 X10^3/uL (0.83-4.51); Absolute Neutrophil Count 9.1 X10^3/uL (2.0-7.7); Basophil# 0.11 X10^3/uL; Basophil% 0.9 % (0-1); Eosinophil# 0.39 X10^3/uL; Eosinophils% 3.2 % (0-5); Hematocrit 44.3 % (37-47); Hemoglobin 13.7 g/dL (12.0-15.0); Lymphocyte # 1.85 X10^3/ul (0.83-4.51); Lymphocyte % 15.1 % (19-41); Mean Corp Hgb Conc 30.9 g/dL (32-36); Mean Corpuscular Volume 106.7 fL (81-99); Monocyte# 0.72 X10^3/uL; Monocyte% 5.9 % (0-10); NRBC Flagged by Analyzer 0 % (0-5); Neutrophil # 9.11 X10^3/uL (2.7-7.7); Neutrophil % 74.4 % (47-70); POSITIVE COUNT YES; POSITIVE MORPHOLOGY YES; RBC Distribution Width CV 18.4 % (11.6-14.6); RBC Distribution Width SD 73.5 fl (35.1-43.9); Red Blood Count 4.15 M/mm3 (4.2-5.4); White Blood Count 12.2 K/mm3 (4.4-11.0)
[2023-01-12 11:23] LABS: ALB/GLOB Ratio 0.9 RATIO (0.9-2.4); AST(SGOT) 31 U/L (15-37); Alanine Aminotransfer ALT/SGPT 27 U/L (13-56); Albumin, Serum 3.5 g/dL (3.2-5.0); Alkaline Phosphatase 109 U/L (45-117); Anion Gap 7 (5-15); BUN 9 mg/dL (7-18); BUN/Creat Ratio 7.1 RATIO (10-20); Calcium,Total 9.4 mg/dL (8.5-10.1); Chloride 107 mmol/L (98-107); Creatinine, Serum 1.26 mg/dL (0.55-1.02); EST Glomerular Filtration Rate 47 mL/min (>60); Est Glom Filt Rate - Afr Amer 57 mL/min (>60); Globulin 4.1 g/dL (2.2-4.2); Glucose 127 mg/dL (74-106); Potassium 3.7 mmol/L (3.5-5.1); Protein, Total 7.6 g/dL (6.4-8.2); Sodium Level 138 mmol/L (136-145); Troponin-I HS 7 pg/mL (3.0-54.0)
[2023-01-12 11:51] LABS: Differential Comment SCANNED; Platelet Estimate ADEQUATE (ADEQ)
--- NOTE | 2023-01-12 12:14 | ED.RN ---
PT COMPLAINING OF STERNAL CHEST PAIN AT 1213. CALLED FOR EKG AND PLACED PT ON TECHNICIAN HELPER INSTRUMENT. INEZ GOYAL AND DR. WADE INFORMED.
[2023-01-12 12:15] VITALS: BP 155/110; PULSE 61; RESP 16
--- NOTE | 2023-01-12 12:32 | EKG12_ITS ---
Test Reason : CP Blood Pressure : / mmHG Vent. Rate : 067 BPM Atrial Rate : 067 BPM P-R Int : 148 ms QRS Dur : 086 ms QT Int : 406 ms P-R-T Axes : 053 -30 174 degrees QTc Int : 429 ms Normal sinus rhythm with sinus arrhythmia Left axis deviation Cannot rule out Anterior infarct , age undetermined ST & T wave abnormality, consider lateral ischemia Abnormal ECG Confirmed by MIGUEL GONZALEZ, MAGALI ([id number]), primer expeditor and drier ZANDER MAYER ([id number]) on 01/19/2023 10:52:15 AM Referred By: Confirmed By:MAGALI RIVERA MD
[2023-01-12 14:00] VITALS: BP 170/69; PULSE 62
[2023-01-12] MEDS: LORazepam 2 MG/ML Syringe 1 MG IV (14:35)
--- NOTE | 2023-01-12 15:20 | ED.RN ---
This RN witnessed patient attempting to leave ER. I questioned pt. why she was leaving and pt. stated they've done nothing for me I have been waiting for hours. Patient did still have PIV in- this RN removed IV and reminded pt. she can not drive home. She assured me her mother was coming to pick her up. Dr. Bloom notified.
== END 2023-01-12 15:23 | disposition left against medical advice (07) ==
PROVIDERS: Emergency Provider Emergency Medicine; PCP Family Medicine; Visit Provider Emergency Medicine
DX: R20.2 Paresthesia of skin (principal); J44.9 Chronic obstructive pulmonary disease, unspecified; E11.22 Type 2 diabetes mellitus with diabetic chronic kidney disease; M54.9 Dorsalgia, unspecified; M79.601 Pain in right arm; R07.9 Chest pain, unspecified; N18.9 Chronic kidney disease, unspecified; G47.33 Obstructive sleep apnea (adult) (pediatric)
CPT/HCPCS: 70450; 80053; 84484; 85025; 93005; 93971; 96361; 96374; 99284; A4216

== ENCOUNTER 2023-01-13 00:16 | Emergency (ER) | payer MEDICARE, MEDICAID, SELFPAY ==
[2023-01-13 00:17] VITALS: BP 159/97; PULSE 86; RESP 20; TEMP 36.6; O2SAT 96; BMI 48.1
--- NOTE | 2023-01-13 00:39 | EKG12_ITS ---
Test Reason : DYSRHYTHMIA Blood Pressure : / mmHG Vent. Rate : 070 BPM Atrial Rate : 070 BPM P-R Int : 162 ms QRS Dur : 088 ms QT Int : 408 ms P-R-T Axes : 045 -15 192 degrees QTc Int : 440 ms Normal sinus rhythm ST & T wave abnormality, consider anterolateral ischemia Abnormal ECG Confirmed by MIGUEL GONZALEZ, MAGALI ([id number]), image editor ZANDER MAYER ([id number]) on 01/19/2023 11:51:53 AM Referred By: VIVI Confirmed By:MAGALI RIVERA MD
--- NOTE | 2023-01-13 00:42 | EDS_ITS ---
HPI History of Present Illness Chief Complaint: Anxiety Detail of Chief Complaint: Anxiety, chest pain, suicidal ideation Informant: patient Narrative Narrative: Patient presents via EMS secondary to having an anxiety attack. She states she went to bed around 1030 last night was having trouble sleeping. She took 3 tabs of Ativan, 3 tabs of tramadol, and 3 tabs of Advil back relief try to help her sleep. She states she woke about 45 minutes ago with chest and back pain and felt she could not catch her breath. Symptoms are improving this time but she does still have some chest pain. She made statements to nursing staff that she had thoughts of hurting herself. When I asked her about this she becomes tearful and states she does not want to live like this any longer. She does admit to trying to hurt herself in the past but denies any specific plan at this time. [facility] Medical History (Updated 01/13/23 @ 06:[address] Nannette Stahl MD) Abnormal glucose Anemia Anxiety Arthritis Asthma BiPAP (biphasic positive airway pressure) dependence Cardiac murmur Cardiology follow-up encounter Celiac disease Chest pain Cholelithiasis Chronic kidney disease Constipation COPD (chronic obstructive pulmonary disease) Depression Diabetes mellitus Dietary restriction Difficulty swallowing Dyspnea on exertion GERD (gastroesophageal reflux disease) Gout History of chronic back pain History of chronic kidney disease History of echocardiogram History of edema History of pain when walking History of stress test Hydronephrosis Hyperlipidemia Hypersomnia Hypertension Hypothyroidism Injury of head and neck Iron deficiency anemia Kidney stones Leg cramps Microcytic anemia Migraine headache Morbid obesity with BMI of 40.0-44.9, adult Non-smoker Noncompliance DAVY treated with BiPAP Post-menopausal Pulmonary embolism Restless leg syndrome Seasonal allergies Shortness of breath on exertion Syncope Thyroid disease Ureterolithiasis UTI (urinary tract infection) Vitamin B12 deficiency Vitamin D deficiency Wears glasses Home Medications citalopram 40 mg tablet 40 mg PO DAILY antidepressant/antianxiety 07/27/19 [History Last Taken 05/04/22] budesonide-formoterol HFA 160 mcg-4.5 mcg/actuation aerosol inhaler (Symbicort) 2 puff inhalation BID inhaler 04/02/20 [History Last Taken 05/04/22] ubrogepant 100 mg tablet (Ubrelvy) 100 mg PO DAILY migraines 04/02/20 [History Last Taken 05/04/22] rimegepant 75 mg disintegrating tablet (Nurtec ODT) 75 mg PO ONCE migraines 06/19/20 [History Last Taken 05/04/22] fluticasone fur. 100 mcg-umeclid 62.5 mcg-vilant 25 mcg inhalat.powder (Trelegy Ellipta) 1 ea inhalation DAILY COPD 08/14/20 [History Last Taken 05/04/22] gabapentin 100 mg capsule 100 mg PO TID neuropathy 09/30/20 [History Last Taken 05/04/22] galcanezumab-gnlm 120 mg/mL subcutaneous pen injector (Emgality Pen) 120 mg subcut QMONTH MIGRAINES 08/19/21 [History Last Taken 09/26/22] tizanidine 4 mg tablet 4 mg PO QHS PRN muscle relaxer 03/03/22 [History Last Taken 05/03/22] atogepant 60 mg tablet (Qulipta) 60 mg PO DAILY MIGRAINES 05/04/22 [History Last Taken 05/04/22] lorazepam 1 mg tablet 1 mg PO TID PRN Anxiety 05/04/22 [History Last Taken Unknown] promethazine 25 mg tablet 25 mg PO Q4H PRN nausea and vomiting #20 tabs 05/14/22 [Rx Last Taken Unknown] progesterone micronized 200 mg capsule 200 mg PO DAILY hormones 10/11/22 [History Last Taken Unknown] tramadol 50 mg tablet 50 mg PO TID pain 10/11/22 [History Last Taken Unknown] amlodipine 10 mg tablet 10 mg PO DAILY blood pressure #90 tabs 10/28/22 [Rx Last Taken Unknown] valsartan 320 mg tablet 160 mg (1/2 x 320 mg) PO BID BLOOD PRESSURE #90 tabs 10/28/22 [Rx Last Taken Unknown] albuterol sulfate 90 mcg/actuation breath activated powder inhaler (ProAir RespiClick) 2 inh inhalation 4X/DAY PRN Shortness Of Breath #1 ea 11/07/22 [Rx Last Taken Unknown] doxycycline monohydrate 100 mg capsule 100 mg PO BID #14 CAPSULES 11/12/22 [Rx Last Taken Unknown] levothyroxine 175 mcg tablet 175 mcg PO DAILY order as courtesy until pt sees PCP 11/25/22 #30 tabs 11/18/22 [Rx Last Taken Unknown] cefdinir 300 mg capsule 300 mg PO BID #14 caps 12/04/22 [Rx Last Taken Unknown] dicyclomine 10 mg capsule 20 mg (2 x 10 mg) PO Q6H PRN PRN abdominal pain #20 CAPSULES 12/20/22 [Rx Last Taken Unknown] ondansetron 4 mg disintegrating tablet 8 mg (2 x 4 mg) PO Q8H PRN PRN Nausea #20 tabs 12/20/22 [Rx Last Taken Unknown] albuterol sulfate 90 mcg/actuation aerosol inhaler 2 puff inhalation Q4H PRN shortness of breath or wheezing 12/25/22 [History Last Taken Unknown] atorvastatin 80 mg tablet 80 mg PO QHS #30 tabs 12/25/22 [Rx Last Taken Unknown] magnesium citrate (Citroma oral solution) 300 ml PO DAILY PRN constipation #296 mL 01/02/23 [Rx Last Taken Unknown] ondansetron 4 mg disintegrating tablet 4 mg PO Q8H PRN PRN Nausea #10 tabs 01/03/23 [Rx Last Taken Unknown] metoclopramide HCl 10 mg tablet (Reglan) 10 mg PO Q6H PRN nausea and vomiting #20 tabs 01/07/23 [Rx Last Taken Unknown] peg 3350 240 gram-electrolytes 22.72 gram-6.72 g-5.84 g powdr for soln (Gavilyte-C) 240 ml PO Q10M PRN #4,000 mL 01/07/23 [Rx Last Taken Unknown] Allergy/AdvReac Type Severity Reaction Status Date / Time hydrochlorothiazide AdvReac Intermediate Contributes Verified 01/13/23 00:16 to gout naproxen [From Naprosyn] AdvReac Intermediate Nausea Verified 01/13/23 00:16 aspirin AdvReac Nausea Verified 01/13/23 00:16 Family History Father , Age 72 Hypertension Mother CAD (coronary artery disease) Myocardial infarction, Onset Age: 55 Hypertension Sister CAD (coronary artery disease) Brother Cancer Surgical History History of History of cardiac catheterization History of carpal tunnel surgery of left wrist History of carpal tunnel surgery of right wrist History of left heart catheterization (11/11/20) history of uterine ablation Hx of cystoscopy Social History household members: none housing: apartment Smoking Status: Never smoker alcohol intake: never substance use type: does not use caffeine: No ROS ROS ED Constitutional Constitutional ED: Denies chills or fever(s) Eyes Eyes: Denies change in vision or discharge from eye(s) ENT ENT ED: Denies discharge from eye(s), rhinorrhea or sore throat Cardiovascular Cardiovascular: Reports chest pain; Denies palpitations Respiratory/Chest Respiratory/Chest: Reports dyspnea; Denies cough Gastrointestinal Gastrointestinal: Denies abdominal pain, nausea or vomiting Genitourinary Genitourinary ED: Denies dysuria Musculoskeletal Musculoskeletal: Reports back pain; Denies extremity pain Integumentary Denies Abrasions or rash Neurologic Neurologic: Denies headache(s) or weakness Psychiatric Psychiatric: Reports depression and suicidal ideation; Denies anxiety Endocrine Endocrinology: Denies polydipsia or polyuria Allergic/Immunologic Allergic/Immunologic ED: Denies lip swelling or urticaria EXAM Physical Exam Const Vital Signs: 01/13/23 00:17 01/13/23 00:40 01/13/23 02:27 Temperature 98 F Temperature Source Oral Pulse Rate 86 78 Respiratory Rate 20 H 20 H Respiratory Pattern Normal Blood Pressure 159/97 H Blood Pressure Mean 117 Pulse Ox 96 Oxygen Delivery Method Room Air Room Air Positive obese Nutritional Appearance: obese HEENT Reports moist mucous membranes Eyes EOMs intact bilaterally Chest Wall inspection of chest normal and palpation of chest normal Resp normal respiratory effort and clear to auscultation bilaterally Cardio regular rate and regular rhythm GI non-tender Palpation: soft Extremity normal to inspection Neuro oriented x3 Psych Mood & Affect: anxious and tearful Skin no rashes or lesions noted MDM MDM MDM Narrative Medical decision making narrative: Patient placed on air sampling and monitoring. Insert EKG chest x-ray obtained to evaluate for acute lung pathology, cardiac size, or mediastinal abnormality. Labwork obtained to evaluate for leukocytosis, anemia, and electrolyte derangement. History & Record Review Discussion w/independent historian: EMS personnel and Patient Additional record(s) reviewed:: Prior ED visit and Prior labs Lab Data Attestation: I reviewed the patient's lab results. Labs: Laboratory Results - last 24 hr 01/13/23 01/13/23 02:36 03:33 WBC 11.7 H RBC 3.94 L Hgb 12.7 Hct 39.4 MCV 100.0 H D MCH 32.2 H MCHC 32.2 RDW Std Deviation 66.1 H RDW Coeff of Alfredo 17.8 H Plt Count 374 MPV 9.6 Immature Gran % (Auto) 0.500 Neut % (Auto) 71.7 H Lymph % (Auto) 17.3 L Durham % (Auto) 6.1 Eos % (Auto) 3.4 Baso % (Auto) 1.0 Absolute Neuts (auto) 8.4 H Absolute Lymphs (auto) 2.02 Nucleated RBC % 0 Differential Comment SCANNED Anisocytosis 1+ Macrocytosis 1+ Sodium 138 Potassium 3.8 Chloride 107 Carbon Dioxide 25.0 Anion Gap 6 BUN 8 Creatinine 1.10 H Estim Creat Clear Calc 51.66 Est GFR (MDRD) Af Amer 67 Est GFR (MDRD) Non-Af 55 L BUN/Creatinine Ratio 7.3 L Glucose 111 H Calcium 9.4 Troponin I High Sens 8 Urine Opiates Screen NEGATIVE Urine Methadone Screen NEGATIVE Ur Barbiturates Screen NEGATIVE Ur Phencyclidine Scrn NEGATIVE Ur Amphetamines Screen NEGATIVE MDMA (Ecstasy) Screen NEGATIVE U Benzodiazepines Scrn NEGATIVE Urine Cocaine Screen NEGATIVE U Cannabinoids Screen NEGATIVE Ur Drug Screen Comment Ethyl Alcohol < 3.0 Radiography Chest X-Ray - ED: 1 View and Read by ED Physician Diagnostic Testing: Clinical Impression(s) from Imaging Studies Chest X-Ray 01/13/23 03:04 IMPRESSION: No radiographic evidence of acute cardiopulmonary disease. Electronically Signed: Sanjay Raza MD at 3:41 EST , EKG Initial EKG: Attestation: I personally reviewed and interpreted this EKG as follows: Interpretation: Sinus Rhythm (Sinus rhythm at 70 bpm. Nonspecific T wave inversion in the precordial leads. Similar in appearance to prior study from January 02, 2023.) Follow-up EKG: Attestation: I personally reviewed and interpreted this EKG as follows: Interpretation: Sinus Rhythm (Sinus at [address]-T wave changes in the anterior precordial leads. No significant change when compared to prior study.) Treatment and Re-Evaluation :: CBC reveals white count of 11.7 with 71% neutrophils. Hemoglobin normal at 12.7. Chemistry studies unremarkable. Glucose is 111. Troponin is normal at 8. EtOH and tox screen is negative. EKG x2 studies reveals nonspecific ST-T w ave changes in the anterior precordial leads, unchanged when compared to prior study. Portable chest x-ray per mitral rotation was chronic changes with no evidence of focal infiltrate. Radiology interpretation reviewed and agrees. With patient having made statements of not wanting to be here anymore and some thoughts of suicide I will ask crisis to come evaluate the patient. Counseling center staff has seen the patient. They do feel that she is appropriate for safety plan and she agrees to the intensive outpatient program. They will make a referral and patient will be contacted. Discharge Plan Triage Chief Complaint: Anxiety ED Provider: Nannette Stahl Dx/Rx/DC Orders Clinical Impression: Anxiety, Chest pain Instructions: ED Anxiety Reaction, ED Chest Pain, Noncardiac Prescriptions: No Action Ubrelvy 100 mg tablet 100 mg PO DAILY Rx Instructions: as a single dose; may repeat once in >=2 hours after first dose if needed budesonide-formoterol [Symbicort] 160-4.5 mcg/actuation HFA aerosol inhaler 2 puff INHALATION BID Nurtec ODT 75 mg tablet,disintegrating 75 mg PO ONCE gabapentin 100 mg capsule 100 mg PO TID Emgality Pen 120 mg/mL pen injector 120 mg subcut QMONTH tizanidine 4 mg tablet 4 mg PO QHS PRN (Reason: muscle relaxer) Trelegy Ellipta 100-62.5-25 mcg blister with device 1 ea INHALATION DAILY lorazepam 1 mg tablet 1 mg PO TID PRN (Reason: Anxiety) Qulipta 60 mg tablet 60 mg PO DAILY promethazine 25 mg tablet 25 mg PO Q4H PRN (Reason: nausea and vomiting) Qty: 20 0RF tramadol 50 mg tablet 50 mg PO TID Patient Comments: TAKE 1 TABLET BY MOUTH THREE TIMES DAILY FOR 28 DAYS progesterone micronized 200 mg capsule 200 mg PO DAILY Patient Comments: Take 2 capsules at bedtime ProAir RespiClick 90 mcg/actuation aerosol powdr breath activated 2 inh INHALATION 4X/DAY PRN (Reason: Shortness Of Breath) Qty: 1 0RF doxycycline monohydrate 100 mg capsule 100 mg PO BID Qty: 14 0RF Hold Instructions: not taking albuterol sulfate 90 mcg/actuation HFA aerosol inhaler 2 puff inhalation Q4H PRN (Reason: shortness of breath or wheezing) Patient Comments: Two puffs every four hours as needed atorvastatin 80 mg Tablet 80 mg PO QHS Qty: 30 0RF cefdinir 300 mg capsule 300 mg PO BID Qty: 14 0RF Hold Instructions: not taking dicyclomine 10 mg capsule 20 mg PO Q6H PRN PRN (Reason: abdominal pain) Qty: 20 0RF ondansetron 4 mg tablet,disintegrating 8 mg PO Q8H PRN PRN (Reason: Nausea) Qty: 20 0RF magnesium citrate [Citroma] Solution 300 ml PO DAILY PRN (Reason: constipation) Qty: 296 0RF ondansetron [ondansetron] 4 mg tablet,disintegrating 4 mg PO Q8H PRN PRN (Reason: Nausea) Qty: 10 0RF metoclopramide HCl [Reglan] 10 mg tablet 10 mg PO Q6H PRN (Reason: nausea and vomiting) Qty: 20 0RF GaviLyte-C 240-22.72-6.72 -5.84 gram recon soln 240 ml PO Q10M PRN Qty: 4000 0RF Rx Instructions: until fecal effluent is clear citalopram 40 mg tablet 40 mg PO DAILY amlodipine 10 mg tablet 10 mg PO DAILY Qty: 90 3RF valsartan 320 mg tablet 160 mg PO BID Qty: 90 3RF levothyroxine 175 mcg tablet 175 mcg PO DAILY Qty: 30 1RF Primary Care Provider: Halina Johnson Referrals: Counseling,Center [Group of Physicians] - As soon as possible Halina Johnson DO [Primary Care Provider] - 1-2 Weeks Disposition Disposition: Home, Self Care
--- NOTE | 2023-01-13 01:50 | ED.RN ---
WHILE STARTING IV, PT KEEPS FALLING ASLEEP AND SNORING.
--- NOTE | 2023-01-13 02:13 | EKG12_ITS ---
Test Reason : DYSRHYTHMIA Blood Pressure : / mmHG Vent. Rate : 063 BPM Atrial Rate : 063 BPM P-R Int : 150 ms QRS Dur : 086 ms QT Int : 426 ms P-R-T Axes : 056 -17 188 degrees QTc Int : 435 ms Normal sinus rhythm Possible Inferior infarct , age undetermined ST & T wave abnormality, consider anterolateral ischemia Abnormal ECG Confirmed by MIGUEL GONZALEZ, MAGALI ([id number]), digital editor ZANDER MAYER ([id number]) on 01/19/2023 11:51:33 AM Referred By: VIVI Confirmed By:MAGALI RIVERA MD
[2023-01-13 02:27] VITALS: PULSE 78; RESP 20
[2023-01-13] MEDS: Ipratropium/Albuterol Sulfate 3 ML AMPUL.NEB INHALATION (02:27)
[2023-01-13 02:42] LABS: Absolute Lymphocyte Count 2.02 X10^3/uL (0.83-4.51); Absolute Neutrophil Count 8.4 X10^3/uL (2.0-7.7); Basophil# 0.12 X10^3/uL; Eosinophils% 3.4 % (0-5); Hematocrit 39.4 % (37-47); Hemoglobin 12.7 g/dL (12.0-15.0); Lymphocyte # 2.02 X10^3/ul (0.83-4.51); Lymphocyte % 17.3 % (19-41); Mean Corp Hgb Conc 32.2 g/dL (32-36); Mean Corpuscular Hgb 32.2 pg (27.0-32.0); Mean Platelet Vol. 9.6 fl (6.2-12.0); Monocyte# 0.71 X10^3/uL; Monocyte% 6.1 % (0-10); NRBC Flagged by Analyzer 0 % (0-5); Neutrophil % 71.7 % (47-70); POSITIVE MORPHOLOGY YES; Platelet Count 374 K/mm3 (150-450); RBC Distribution Width CV 17.8 % (11.6-14.6); RBC Distribution Width SD 66.1 fl (35.1-43.9); Red Blood Count 3.94 M/mm3 (4.2-5.4); White Blood Count 11.7 K/mm3 (4.4-11.0)
[2023-01-13 02:45] LABS: Differential Indicated SCAN CRITERIA MET
[2023-01-13 02:54] LABS: Alcohol, Blood (Medical)-Serum < 3.0 mg/dL
[2023-01-13 03:04] LABS: Anion Gap 6 (5-15); BUN 8 mg/dL (7-18); BUN/Creat Ratio 7.3 RATIO (10-20); Calcium,Total 9.4 mg/dL (8.5-10.1); Chloride 107 mmol/L (98-107); EST Glomerular Filtration Rate 55 mL/min (>60); Est Glom Filt Rate - Afr Amer 67 mL/min (>60); Estimated Creatinine Clearance 51.66 ml/min; Glucose 111 mg/dL (74-106); Potassium 3.8 mmol/L (3.5-5.1); Sodium Level 138 mmol/L (136-145); Troponin-I HS (w/2H Reflex) 8 pg/mL (3.0-54.0)
--- NOTE | 2023-01-13 03:04 | RAD_ITS ---
EXAM: XR CHEST, 1 VIEW CLINICAL INDICATION: chest pain TECHNIQUE: Frontal view of the chest. COMPARISON: December 20, 2022 FINDINGS: LUNGS AND PLEURAL SPACES: Unremarkable. No consolidation or edema. No pneumothorax. No effusion. HEART: Unremarkable. Cardiac silhouette not enlarged. MEDIASTINUM: Central airways and mediastinal contour are unremarkable. BONES/JOINTS: Unremarkable. No acute fracture. SOFT TISSUES: Unremarkable. RAD/Chest 1 View (Portable) IMPRESSION: No radiographic evidence of acute cardiopulmonary disease. Electronically Signed: Sanjay Raza MD at 3:41 EST ,
[2023-01-13] MEDS: Acetaminophen 500 MG Tablet 1000 MG PO (03:09)
[2023-01-13 04:07] LABS: Amphetamine Urine VISTA NEGATIVE (<1000 ng/mL); Barbiturate Urine VISTA NEGATIVE (< 200 ng/mL); Benzodiazepine Urine VISTA NEGATIVE (< 200 ng/mL); Cocaine Urine VISTA NEGATIVE (< 300 ng/mL); Ecstacy Urine VISTA NEGATIVE (< 500 ng/mL); Methadone Urine VISTA NEGATIVE (< 300 ng/mL); PCP Urine VISTA NEGATIVE (< 25 ng/mL); THC Urine VISTA NEGATIVE (< 50 ng/mL); Vista UDS pH Range 6
[2023-01-13 04:08] LABS: Anisocytosis 1+; Differential Comment SCANNED; Macrocytosis 1+
[2023-01-13 04:40] LABS: Reflex Troponin-HS? (from REC) Y
[2023-01-13 07:53] VITALS: BP 137/88; PULSE 72; RESP 16; O2SAT 97
--- NOTE | 2023-01-13 19:18 | CM.ED ---
Social Work Pt here previously in the day and discharged prior to SW shift. [facility] SW had left voicemail regarding patient being in ED and possibly needing additional services like IOP. Pt has had numerous ED visits in the past two months. Pt returned to ED and arrives saying her physician sent her to be admitted directly for psychiatric placement. Nursing consulted SW prior to registering patient. SW spoke with patient in triage. SW introduced self and role. SW explored patient's reason for being at ED and current needs. Pt denies any current SI/HI/anxiety. Pt reports I think I should be admitted for a few days to get some rest. SW reviewed patient was here recently without medical findings and admission requires a medical reason. Pt reports having a lot of anxiety lately and believes she would do better if admitted here as an inpatient so they can see what's causing this. SW explained there is not inpt psychiatric care here. SW discussed IOP/PHP behavioral health program and patient had interest. SW reviewed coping skills and provided patient with anxiety coping skills handout. Pt's mother called patient while with SW. Pt had SW speak with mother. SW explained options and IOP/PHP to mother. Mother requested IOP phone number, SW provided. Pt agreeable to IOP/PHP referral. Pt denies any other SW needs at this time. Mother reports she will case picker patient. Gerri Man DIRECTOR CASE MANAGEMENT, IMPROVEMENT INTERN
== END 2023-01-13 07:54 | disposition home or self-care (01) ==
PROVIDERS: Emergency Provider Emergency Medicine; PCP Family Medicine; Visit Provider Emergency Medicine
DX: F41.9 Anxiety disorder, unspecified (principal); J44.9 Chronic obstructive pulmonary disease, unspecified; E11.22 Type 2 diabetes mellitus with diabetic chronic kidney disease; R07.9 Chest pain, unspecified; N18.9 Chronic kidney disease, unspecified; R45.851 Suicidal ideations; G47.33 Obstructive sleep apnea (adult) (pediatric); M54.9 Dorsalgia, unspecified; E66.9 Obesity, unspecified; Z86.711 Personal history of pulmonary embolism
CPT/HCPCS: 71045; 80048; 80307; 82077; 84484; 85025; 93005; 94640; 99285; A4216

== ENCOUNTER → 2023-01-13 | Outpatient (CLI) | payer MEDICARE, MEDICAID, SELFPAY ==
[2023-01-13 16:19] LABS: Amphetamine Urine VISTA NEGATIVE (<1000 ng/mL); Barbiturate Urine VISTA NEGATIVE (< 200 ng/mL); Benzodiazepine Urine VISTA NEGATIVE (< 200 ng/mL); Cocaine Urine VISTA NEGATIVE (< 300 ng/mL); Ecstacy Urine VISTA NEGATIVE (< 500 ng/mL); Methadone Urine VISTA NEGATIVE (< 300 ng/mL); PCP Urine VISTA NEGATIVE (< 25 ng/mL); THC Urine VISTA NEGATIVE (< 50 ng/mL); Vista UDS pH Range 6
== END | disposition home or self-care (01) ==
PROVIDERS: PCP Family Medicine; Visit Provider Anesthesiology Pain Medicine
DX: F11.20 Opioid dependence, uncomplicated (principal)
CPT/HCPCS: 80307

== ENCOUNTER 2023-01-16 08:07 | Emergency (ER) | payer MEDICARE, MEDICAID, SELFPAY ==
[2023-01-16 08:08] VITALS: BP 165/122; PULSE 85; RESP 16; TEMP 35.7; O2SAT 97; BMI 48.7
--- NOTE | 2023-01-16 08:27 | ED.VIS.GI ---
HPI HPI - GI History of Present Illness Chief Complaint: Abd Pain Narrative Narrative: 52-year-old female present with right-sided abdominal pain. She states has had this in the past. She states it may or may not her worse than previously. She cannot describe any new or worsening symptoms. She states she previously had constipation but she is having bowel movements now. Yesterday she describes diarrhea without any black or bloody stools. She states she felt generally rundown yesterday but today she feels fine. No fevers or chills. No nausea or vomiting. No history of trauma to the abdomen. Patient states that she also has some numbness in the right arm which has been present for months. She has been hospitalized and worked up for stroke in the past and this was all negative. She states it is my usual arm numbness. Denies any new injury. PFSH [facility] Medical History Abnormal glucose Anemia Anxiety Arthritis Asthma BiPAP (biphasic positive airway pressure) dependence Cardiac murmur Cardiology follow-up encounter Celiac disease Chest pain Cholelithiasis Chronic kidney disease Constipation COPD (chronic obstructive pulmonary disease) Depression Diabetes mellitus Dietary restriction Difficulty swallowing Dyspnea on exertion GERD (gastroesophageal reflux disease) Gout History of chronic back pain History of chronic kidney disease History of echocardiogram History of edema History of pain when walking History of stress test Hydronephrosis Hyperlipidemia Hypersomnia Hypertension Hypothyroidism Injury of head and neck Iron deficiency anemia Kidney stones Leg cramps Microcytic anemia Migraine headache Morbid obesity with BMI of 40.0-44.9, adult Non-smoker Noncompliance DAVY treated with BiPAP Post-menopausal Pulmonary embolism Restless leg syndrome Seasonal allergies Shortness of breath on exertion Syncope Thyroid disease Ureterolithiasis UTI (urinary tract infection) Vitamin B12 deficiency Vitamin D deficiency Wears glasses Home Medications citalopram 40 mg tablet 40 mg PO DAILY antidepressant/antianxiety 07/27/19 [History Last Taken 05/04/22] budesonide-formoterol HFA 160 mcg-4.5 mcg/actuation aerosol inhaler (Symbicort) 2 puff inhalation BID inhaler 04/02/20 [History Last Taken 05/04/22] ubrogepant 100 mg tablet (Ubrelvy) 100 mg PO DAILY migraines 04/02/20 [History Last Taken 05/04/22] rimegepant 75 mg disintegrating tablet (Nurtec ODT) 75 mg PO ONCE migraines 06/19/20 [History Last Taken 05/04/22] fluticasone fur. 100 mcg-umeclid 62.5 mcg-vilant 25 mcg inhalat.powder (Trelegy Ellipta) 1 ea inhalation DAILY COPD 08/14/20 [History Last Taken 05/04/22] gabapentin 100 mg capsule 100 mg PO TID neuropathy 09/30/20 [History Last Taken 05/04/22] galcanezumab-gnlm 120 mg/mL subcutaneous pen injector (Emgality Pen) 120 mg subcut QMONTH MIGRAINES 08/19/21 [History Last Taken 09/26/22] tizanidine 4 mg tablet 4 mg PO QHS PRN muscle relaxer 03/03/22 [History Last Taken 05/03/22] atogepant 60 mg tablet (Qulipta) 60 mg PO DAILY MIGRAINES 05/04/22 [History Last Taken 05/04/22] lorazepam 1 mg tablet 1 mg PO TID PRN Anxiety 05/04/22 [History Last Taken Unknown] promethazine 25 mg tablet 25 mg PO Q4H PRN nausea and vomiting #20 tabs 05/14/22 [Rx Last Taken Unknown] progesterone micronized 200 mg capsule 200 mg PO DAILY hormones 10/11/22 [History Last Taken Unknown] tramadol 50 mg tablet 50 mg PO TID pain 10/11/22 [History Last Taken Unknown] amlodipine 10 mg tablet 10 mg PO DAILY blood pressure #90 tabs 10/28/22 [Rx Last Taken Unknown] valsartan 320 mg tablet 160 mg (1/2 x 320 mg) PO BID BLOOD PRESSURE #90 tabs 10/28/22 [Rx Last Taken Unknown] albuterol sulfate 90 mcg/actuation breath activated powder inhaler (ProAir RespiClick) 2 inh inhalation 4X/DAY PRN Shortness Of Breath #1 ea 11/07/22 [Rx Last Taken Unknown] doxycycline monohydrate 100 mg capsule 100 mg PO BID #14 CAPSULES 11/12/22 [Rx Last Taken Unknown] levothyroxine 175 mcg tablet 175 mcg PO DAILY order as courtesy until pt sees PCP 11/25/22 #30 tabs 11/18/22 [Rx Last Taken Unknown] cefdinir 300 mg capsule 300 mg PO BID #14 caps 12/04/22 [Rx Last Taken Unknown] dicyclomine 10 mg capsule 20 mg (2 x 10 mg) PO Q6H PRN PRN abdominal pain #20 CAPSULES 12/20/22 [Rx Last Taken Unknown] ondansetron 4 mg disintegrating tablet 8 mg (2 x 4 mg) PO Q8H PRN PRN Nausea #20 tabs 12/20/22 [Rx Last Taken Unknown] albuterol sulfate 90 mcg/actuation aerosol inhaler 2 puff inhalation Q4H PRN shortness of breath or wheezing 12/25/22 [History Last Taken Unknown] atorvastatin 80 mg tablet 80 mg PO QHS #30 tabs 12/25/22 [Rx Last Taken Unknown] magnesium citrate (Citroma oral solution) 300 ml PO DAILY PRN constipation #296 mL 01/02/23 [Rx Last Taken Unknown] ondansetron 4 mg disintegrating tablet 4 mg PO Q8H PRN PRN Nausea #10 tabs 01/03/23 [Rx Last Taken Unknown] metoclopramide HCl 10 mg tablet (Reglan) 10 mg PO Q6H PRN nausea and vomiting #20 tabs 01/07/23 [Rx Last Taken Unknown] peg 3350 240 gram-electrolytes 22.72 gram-6.72 g-5.84 g powdr for soln (Gavilyte-C) 240 ml PO Q10M PRN #4,000 mL 01/07/23 [Rx Last Taken Unknown] Allergy/AdvReac Type Severity Reaction Status Date / Time hydrochlorothiazide AdvReac Intermediate Contributes Verified 01/13/23 00:16 to gout naproxen [From Naprosyn] AdvReac Intermediate Nausea Verified 01/13/23 00:16 aspirin AdvReac Nausea Verified 01/13/23 00:16 Family History Father , Age 72 Hypertension Mother CAD (coronary artery disease) Myocardial infarction, Onset Age: 55 Hypertension Sister CAD (coronary artery disease) Brother Cancer Surgical History History of History of cardiac catheterization History of carpal tunnel surgery of left wrist History of carpal tunnel surgery of right wrist History of left heart catheterization (11/11/20) history of uterine ablation Hx of cystoscopy Social History household members: none housing: apartment Smoking Status: Never smoker alcohol intake: never substance use type: does not use caffeine: No ROS ROS ED Constitutional Constitutional ED: Denies chills, fever(s) or sweats Eyes Eyes: Denies blurry vision or change in vision ENT ENT ED: Denies ear pain or sore throat Cardiovascular Cardiovascular: Denies chest pain, palpitations or racing heartbeat Respiratory/Chest Respiratory/Chest: Denies cough, dyspnea or sputum Gastrointestinal Gastrointestinal: Reports abdominal pain and diarrhea; Denies constipation, nausea or vomiting Genitourinary Genitourinary ED: Denies dysuria, hematuria or urinary frequency Musculoskeletal Musculoskeletal: Denies arthralgias, myalgias or neck pain Integumentary Denies abscess, Abrasions or rash Neurologic Neurologic: Reports paresthesias RUE; Denies headache(s) or weakness Psychiatric Psychiatric: Denies anxiety, depression, suicidal ideation or suicidal thoughts Endocrine Endocrinology: Denies polydipsia or polyuria EXAM Physical Exam Const Vital Signs: 01/16/23 08:08 Temperature 96.2 F L Temperature Source Temporal Pulse Rate 85 Respiratory Rate 16 Blood Pressure 165/122 H Blood Pressure Mean 136 Pulse Ox 97 Oxygen Delivery Method Room Air Positive well nourished and obese General Appearance ED: NAD; Negative for pallor Nutritional Appearance: obese HEENT Reports moist mucous membranes normocephalic and atraumatic Eyes PERRL and EOMs intact bilaterally Resp normal respiratory effort Cardio regular rate and regular rhythm GI non-distended and no masses Neuro CN's II-XII intact bilaterally and moves all extremities Sensorium / Orientation: alert Motor Exam: strength 5/5 throughout Psych mental status grossly normal and thought process normal Skin General Skin Exam: Negative for jaundice or pallor MDM MDM MDM Narrative Medical decision making narrative: 52-year-old female with history of abdominal pain presenting with abdominal pain. She states on the right side of her abdomen. Patient states that it may be worse than usual but she is unsure. Constipation resolved and she had diarrhea yesterday. No fevers or chills. Patient presenting with right flank pain. Differential includes colitis, diverticulitis, gastritis, pancreatitis, acute cholecystitis, constipation, appendicitis, UTI, pyelonephritis, renal calculi, ureteral calculi, obstruction, malignancy, dehydration, electrolyte abnormalities, ovarian torsion, ovarian cyst, ectopic . CBC will be obtained to assess white blood cell count, hemoglobin, platelets. MP to assess liver function, renal function, electrolytes. Lipase to assess for pancreatitis. Urinalysis to assess for UTI. Patient states that currently she is having a headache and some anxiety associated with coming to the ER. She states that she would prefer to have this treated first. She will be given Reglan and Benadryl as well as IV fluids. I will try to hold off on narcotic medication as the patient has a history of chronic constipation and multiple ER visits for similar symptoms. BC shows a normal white blood cell count 9.3. Hemoglobin stable 13.2. Platelets normal at 349. Renal function at baseline. Electrolytes are unremarkable. LFTs and lipase are normal. At this point I reevaluated the patient and she is asleep comfortably. I woke her up to tell her the results and she feels comfortable going home at this point. She was able to call for a ride. Discharged stable condition. Impression: 1. Abdominal pain 2. Headache Lab Data Attestation: I reviewed the patient's lab results. Labs: Laboratory Results - last 24 hr 01/16/23 01/16/23 08:50 09:44 WBC 9.3 RBC 3.99 L Hgb 13.2 Hct 41.5 MCV 104.0 H MCH 33.1 H MCHC 31.8 L RDW Std Deviation 69.3 H RDW Coeff of Alfredo 18.1 H Plt Count 349 MPV 10.1 Immature Gran % (Auto) 0.300 Neut % (Auto) 64.4 Lymph % (Auto) 23.6 [place] % (Auto) 6.8 Eos % (Auto) 4.1 Baso % (Auto) 0.8 Absolute Neuts (auto) 6.0 Absolute Lymphs (auto) 2.20 Nucleated RBC % 0 Differential Comment SCANNED Anisocytosis 2+ Microcytosis 1+ Macrocytosis 1+ Sodium 138 Potassium 4.0 Chloride 105 Carbon Dioxide 27.0 Anion Gap 6 BUN 11 Creatinine 1.41 H Estim Creat Clear Calc 40.30 Est GFR (MDRD) Af Amer 50 L Est GFR (MDRD) Non-Af 42 L BUN/Creatinine Ratio 7.8 L Glucose 115 H Calcium 9.8 Total Bilirubin 0.30 AST 31 ALT 29 Alkaline Phosphatase 105 Total Protein 8.1 Albumin 3.8 Globulin 4.3 H Albumin/Globulin Ratio 0.9 Lipase 66 Urine Color Yellow Urine Clarity Sl. Cloudy Urine pH 5.0 Ur Specific [place] 1.025 Urine Protein 15 H Urine Glucose (UA) Normal Urine Ketones Negative Urine Occult Blood Negative Urine Nitrite Negative Urine Bilirubin Negative Urine Urobilinogen Normal Ur Leukocyte Esterase 100 H Urine RBC 0 SEEN Urine WBC 10-25 SEEN Ur Squamous Epith Cells 0 SEEN Urine Bacteria 1+ Urine Mucus 0 SEEN Discharge Plan Triage Chief Complaint: Abd Pain ED Provider: Claudio Roach Dx/Rx/DC Orders Instructions: ED Abdominal Pain Unkn Cause Fem Prescriptions: No Action Ubrelvy 100 mg tablet 100 mg PO DAILY Rx Instructions: as a single dose; may repeat once in >=2 hours after first dose if needed budesonide-formoterol [Symbicort] 160-4.5 mcg/actuation HFA aerosol inhaler 2 puff INHALATION BID Nurtec ODT 75 mg tablet,disintegrating 75 mg PO ONCE gabapentin 100 mg capsule 100 mg PO TID Emgality Pen 120 mg/mL pen injector 120 mg subcut QMONTH tizanidine 4 mg tablet 4 mg PO QHS PRN (Reason: muscle relaxer) Trelegy Ellipta 100-62.5-25 mcg blister with device 1 ea INHALATION DAILY lorazepam 1 mg tablet 1 mg PO TID PRN (Reason: Anxiety) Qulipta 60 mg tablet 60 mg PO DAILY promethazine 25 mg tablet 25 mg PO Q4H PRN (Reason: nausea and vomiting) Qty: 20 0RF tramadol 50 mg tablet 50 mg PO TID Patient Comments: TAKE 1 TABLET BY MOUTH THREE TIMES DAILY FOR 28 DAYS progesterone micronized 200 mg capsule 200 mg PO DAILY Patient Comments: Take 2 capsules at bedtime ProAir RespiClick 90 mcg/actuation aerosol powdr breath activated 2 inh INHALATION 4X/DAY PRN (Reason: Shortness Of Breath) Qty: 1 0RF doxycycline monohydrate 100 mg capsule 100 mg PO BID Qty: 14 0RF Hold Instructions: not taking albuterol sulfate 90 mcg/actuation HFA aerosol inhaler 2 puff inhalation Q4H PRN (Reason: shortness of breath or wheezing) Patient Comments: Two puffs every four hours as needed atorvastatin 80 mg Tablet 80 mg PO QHS Qty: 30 0RF cefdinir 300 mg capsule 300 mg PO BID Qty: 14 0RF Hold Instructions: not taking dicyclomine 10 mg capsule 20 mg PO Q6H PRN PRN (Reason: abdominal pain) Qty: 20 0RF ondansetron 4 mg tablet,disintegrating 8 mg PO Q8H PRN PRN (Reason: Nausea) Qty: 20 0RF magnesium citrate [Citroma] Solution 300 ml PO DAILY PRN (Reason: constipation) Qty: 296 0RF ondansetron [ondansetron] 4 mg tablet,disintegrating 4 mg PO Q8H PRN PRN (Reason: Nausea) Qty: 10 0RF metoclopramide HCl [Reglan] 10 mg tablet 10 mg PO Q6H PRN (Reason: nausea and vomiting) Qty: 20 0RF GaviLyte-C 240-22.72-6.72 -5.84 gram recon soln 240 ml PO Q10M PRN Qty: 4000 0RF Rx Instructions: until fecal effluent is clear citalopram 40 mg tablet 40 mg PO DAILY amlodipine 10 mg tablet 10 mg PO DAILY Qty: 90 3RF valsartan 320 mg tablet 160 mg PO BID Qty: 90 3RF levothyroxine 175 mcg tablet 175 mcg PO DAILY Qty: 30 1RF Primary Care Provider: Halina Johnson Referrals: Halina Johnson DO [Primary Care Provider] - Disposition Disposition: Home, Self Care
[2023-01-16 09:07] LABS: Basophil# 0.07 X10^3/uL; Basophil% 0.8 % (0-1); Eosinophil# 0.38 X10^3/uL; Eosinophils% 4.1 % (0-5); Hematocrit 41.5 % (37-47); Hemoglobin 13.2 g/dL (12.0-15.0); Lymphocyte % 23.6 % (19-41); Mean Corp Hgb Conc 31.8 g/dL (32-36); Mean Corpuscular Hgb 33.1 pg (27.0-32.0); Mean Platelet Vol. 10.1 fl (6.2-12.0); Monocyte# 0.63 X10^3/uL; Monocyte% 6.8 % (0-10); NRBC Flagged by Analyzer 0 % (0-5); Neutrophil # 6.01 X10^3/uL (2.7-7.7); Neutrophil % 64.4 % (47-70); POSITIVE MORPHOLOGY YES; Platelet Count 349 K/mm3 (150-450); RBC Distribution Width CV 18.1 % (11.6-14.6); RBC Distribution Width SD 69.3 fl (35.1-43.9); Red Blood Count 3.99 M/mm3 (4.2-5.4); White Blood Count 9.3 K/mm3 (4.4-11.0)
[2023-01-16 09:10] LABS: Differential Indicated SCAN CRITERIA MET
[2023-01-16 09:18] LABS: ALB/GLOB Ratio 0.9 RATIO (0.9-2.4); AST(SGOT) 31 U/L (15-37); Alanine Aminotransfer ALT/SGPT 29 U/L (13-56); Albumin, Serum 3.8 g/dL (3.2-5.0); Alkaline Phosphatase 105 U/L (45-117); Anion Gap 6 (5-15); BUN 11 mg/dL (7-18); BUN/Creat Ratio 7.8 RATIO (10-20); Calcium,Total 9.8 mg/dL (8.5-10.1); Chloride 105 mmol/L (98-107); Creatinine, Serum 1.41 mg/dL (0.55-1.02); EST Glomerular Filtration Rate 42 mL/min (>60); Est Glom Filt Rate - Afr Amer 50 mL/min (>60); Globulin 4.3 g/dL (2.2-4.2); Glucose 115 mg/dL (74-106); Lipase 66 U/L (13-75); Protein, Total 8.1 g/dL (6.4-8.2); Sodium Level 138 mmol/L (136-145)
[2023-01-16] MEDS: DiphenhydrAMINE 50 MG/ML Syringe 25 MG IV (09:20)
[2023-01-16] MEDS: Metoclopramide 10 MG/2 ML Vial IV (09:20)
[2023-01-16 09:32] LABS: Anisocytosis 2+; Differential Comment SCANNED; Macrocytosis 1+; Microcytosis 1+
[2023-01-16 09:48] LABS: Mucous, Urine 0 SEEN /hpf (<or=2+); Red Blood Cells-Urine 0 SEEN /hpf (0-5); Squamous Epithelial Cells - UA 0 SEEN /hpf (5-10)
[2023-01-16 09:52] LABS: Color, Urine Yellow (Yellow); Glucose, Dipstick Normal (Normal); Ketone-Dipstick Negative (Negative); Leukocyte Esterase-Dipstick 100 /ul (Negative); Nitrite-Dipstick Negative (Negative); Occult Blood-Urine Negative /ul (Negative); Protein-Dipstick 15 mg/dl (Negative); Specific Gravity, Urine 1.025 (1.002-1.030); Urine Bilirubin Dipstick Negative (Negative); Urine Clarity Sl. Cloudy (Clear); Urine Urobilinogen Normal (Normal)
[2023-01-16 10:00] LABS: Bacteria 1+ /hpf (None Seen); White Blood Cells 10-25 SEEN /hpf (0-5)
[2023-01-16 10:30] VITALS: PULSE 80; RESP 16; O2SAT 98
== END 2023-01-16 10:32 | disposition home or self-care (01) ==
PROVIDERS: Emergency Provider Student in an Organized Health Care Education/Training Program; PCP Family Medicine; Visit Provider Student in an Organized Health Care Education/Training Program
DX: R10.9 Unspecified abdominal pain (principal); J44.9 Chronic obstructive pulmonary disease, unspecified; E11.22 Type 2 diabetes mellitus with diabetic chronic kidney disease; R51.9 Headache, unspecified; N18.9 Chronic kidney disease, unspecified; G47.33 Obstructive sleep apnea (adult) (pediatric); E66.9 Obesity, unspecified; Z86.711 Personal history of pulmonary embolism
CPT/HCPCS: 80053; 81001; 83690; 85025; 96374; 96375; 99283; A4216

== ENCOUNTER 2023-01-19 03:20 | Emergency (ER) | payer MEDICARE, MEDICAID, SELFPAY ==
[2023-01-19 03:21] VITALS: BP 163/107; PULSE 85; RESP 18; TEMP 36.2; O2SAT 96; BMI 49.8
--- NOTE | 2023-01-19 03:29 | ED.VIS.LOWEX ---
HPI History of Present Illness Chief Complaint: Lower Extremity Injury Narrative Narrative: 52-year-old female with multiple medical problems including diabetes, chronic kidney disease, hyperlipidemia, obesity, presents via EMS with bilateral leg cramps. States she has been experiencing them over the last 1 to 2 days. Yesterday morning she went to urgent care as soon as they opened and states she was prescribed magnesium. She started having her leg cramps again, so instead of half of magnesium tablet she took a whole 1. She states she also took trazodone and tramadol, and nothing is helping. She called EMS because she could not get a ride to the emergency department because her mother would not answer the phone. She presents because nothing is helping. Of note, she was seen in the emergency department 3 days ago for abdominal pain. No exacerbating or alleviating factors to her all over leg cramps. [facility] Medical History Abnormal glucose Anemia Anxiety Arthritis Asthma BiPAP (biphasic positive airway pressure) dependence Cardiac murmur Cardiology follow-up encounter Celiac disease Chest pain Cholelithiasis Chronic kidney disease Constipation COPD (chronic obstructive pulmonary disease) Depression Diabetes mellitus Dietary restriction Difficulty swallowing Dyspnea on exertion GERD (gastroesophageal reflux disease) Gout History of chronic back pain History of chronic kidney disease History of echocardiogram History of edema History of pain when walking History of stress test Hydronephrosis Hyperlipidemia Hypersomnia Hypertension Hypothyroidism Injury of head and neck Iron deficiency anemia Kidney stones Leg cramps Microcytic anemia Migraine headache Morbid obesity with BMI of 40.0-44.9, adult Non-smoker Noncompliance DAVY treated with BiPAP Post-menopausal Pulmonary embolism Restless leg syndrome Seasonal allergies Shortness of breath on exertion Syncope Thyroid disease Ureterolithiasis UTI (urinary tract infection) Vitamin B12 deficiency Vitamin D deficiency Wears glasses Home Medications citalopram 40 mg tablet 40 mg PO DAILY antidepressant/antianxiety 07/27/19 [History Last Taken 05/04/22] budesonide-formoterol HFA 160 mcg-4.5 mcg/actuation aerosol inhaler (Symbicort) 2 puff inhalation BID inhaler 04/02/20 [History Last Taken 05/04/22] ubrogepant 100 mg tablet (Ubrelvy) 100 mg PO DAILY migraines 04/02/20 [History Last Taken 05/04/22] rimegepant 75 mg disintegrating tablet (Nurtec ODT) 75 mg PO ONCE migraines 06/19/20 [History Last Taken 05/04/22] fluticasone fur. 100 mcg-umeclid 62.5 mcg-vilant 25 mcg inhalat.powder (Trelegy Ellipta) 1 ea inhalation DAILY COPD 08/14/20 [History Last Taken 05/04/22] gabapentin 100 mg capsule 100 mg PO TID neuropathy 09/30/20 [History Last Taken 05/04/22] galcanezumab-gnlm 120 mg/mL subcutaneous pen injector (Emgality Pen) 120 mg subcut QMONTH MIGRAINES 08/19/21 [History Last Taken 09/26/22] tizanidine 4 mg tablet 4 mg PO QHS PRN muscle relaxer 03/03/22 [History Last Taken 05/03/22] atogepant 60 mg tablet (Qulipta) 60 mg PO DAILY MIGRAINES 05/04/22 [History Last Taken 05/04/22] lorazepam 1 mg tablet 1 mg PO TID PRN Anxiety 05/04/22 [History Last Taken Unknown] promethazine 25 mg tablet 25 mg PO Q4H PRN nausea and vomiting #20 tabs 05/14/22 [Rx Last Taken Unknown] progesterone micronized 200 mg capsule 200 mg PO DAILY hormones 10/11/22 [History Last Taken Unknown] tramadol 50 mg tablet 50 mg PO TID pain 10/11/22 [History Last Taken Unknown] amlodipine 10 mg tablet 10 mg PO DAILY blood pressure #90 tabs 10/28/22 [Rx Last Taken Unknown] valsartan 320 mg tablet 160 mg (1/2 x 320 mg) PO BID BLOOD PRESSURE #90 tabs 10/28/22 [Rx Last Taken Unknown] albuterol sulfate 90 mcg/actuation breath activated powder inhaler (ProAir RespiClick) 2 inh inhalation 4X/DAY PRN Shortness Of Breath #1 ea 11/07/22 [Rx Last Taken Unknown] doxycycline monohydrate 100 mg capsule 100 mg PO BID #14 CAPSULES 11/12/22 [Rx Last Taken Unknown] levothyroxine 175 mcg tablet 175 mcg PO DAILY order as courtesy until pt sees PCP 11/25/22 #30 tabs 11/18/22 [Rx Last Taken Unknown] cefdinir 300 mg capsule 300 mg PO BID #14 caps 12/04/22 [Rx Last Taken Unknown] dicyclomine 10 mg capsule 20 mg (2 x 10 mg) PO Q6H PRN PRN abdominal pain #20 CAPSULES 12/20/22 [Rx Last Taken Unknown] ondansetron 4 mg disintegrating tablet 8 mg (2 x 4 mg) PO Q8H PRN PRN Nausea #20 tabs 12/20/22 [Rx Last Taken Unknown] albuterol sulfate 90 mcg/actuation aerosol inhaler 2 puff inhalation Q4H PRN shortness of breath or wheezing 12/25/22 [History Last Taken Unknown] atorvastatin 80 mg tablet 80 mg PO QHS #30 tabs 12/25/22 [Rx Last Taken Unknown] magnesium citrate (Citroma oral solution) 300 ml PO DAILY PRN constipation #296 mL 01/02/23 [Rx Last Taken Unknown] ondansetron 4 mg disintegrating tablet 4 mg PO Q8H PRN PRN Nausea #10 tabs 01/03/23 [Rx Last Taken Unknown] metoclopramide HCl 10 mg tablet (Reglan) 10 mg PO Q6H PRN nausea and vomiting #20 tabs 01/07/23 [Rx Last Taken Unknown] peg 3350 240 gram-electrolytes 22.72 gram-6.72 g-5.84 g powdr for soln (Gavilyte-C) 240 ml PO Q10M PRN #4,000 mL 01/07/23 [Rx Last Taken Unknown] gabapentin 100 mg capsule 100 mg PO QHS PRN leg cramps #14 caps 01/19/23 [Rx Last Taken Unknown] Allergy/AdvReac Type Severity Reaction Status Date / Time hydrochlorothiazide AdvReac Intermediate Contributes Verified 01/13/23 00:16 to gout naproxen [From Naprosyn] AdvReac Intermediate Nausea Verified 01/13/23 00:16 aspirin AdvReac Nausea Verified 01/13/23 00:16 Family History Father , Age 72 Hypertension Mother CAD (coronary artery disease) Myocardial infarction, Onset Age: 55 Hypertension Sister CAD (coronary artery disease) Brother Cancer Surgical History History of History of cardiac catheterization History of carpal tunnel surgery of left wrist History of carpal tunnel surgery of right wrist History of left heart catheterization (11/11/20) history of uterine ablation Hx of cystoscopy Social History household members: none housing: apartment Smoking Status: Never smoker alcohol intake: never substance use type: does not use caffeine: No ROS ROS ED ROS Narrative Constitutional: No fever, no chills. HEENT: No sore throat. No neck pain. No loss of vision. No rhinorrhea. Cardiovascular: No chest pain. No palpitations. No pedal edema. Respiratory: No cough, no shortness of breath. Abdominal: No abdominal pain. No nausea. No vomiting. Genitourinary: No dysuria. No hematuria. Musculoskeletal: Lateral, diffuse leg cramps. Neurologic: No headaches. No dizziness. No lightheadedness. Skin: No rash. No change in color. Psychiatric: No depression. No anxiety. EXAM Physical Exam Narrative Exam Narrative: Afebrile. Vital signs noted. HEENT: Normocephalic. Atraumatic. PERRL, EOMI. Neck soft and supple. No point tenderness or step off. Cardiovascular: Regular rate and rhythm. No murmurs, rubs, or gallops appreciated. Respiratory: No tachypnea. Lungs clear to auscultation bilaterally. Gastrointestinal: Abdomen soft, nontender, with normoactive bowel sounds. No rebound or guarding. Neurological: Awake. Alert. Nonfocal, nonlateralizing. Skin: No rash. Normal color. No pallor. Musculoskeletal: No pedal edema. Full range of motion extremities. Neurovascular intact bilateral lower extremities with palpable dorsalis pedis pulses bilaterally. Const Vital Signs: 01/19/23 03:21 Temperature 97.1 F L Temperature Source Temporal Pulse Rate 85 Respiratory Rate 18 Blood Pressure 163/107 H Blood Pressure Mean 125 Pulse Ox 96 Oxygen Delivery Method Room Air MDM MDM MDM Narrative Medical decision making narrative: I reviewed her prior laboratory work and she had normal sodium and potassium a few days ago. I will recheck her electrolytes and also check a magnesium. In the differential diagnosis is bilateral leg cramps versus restless leg syndrome versus diabetic neuropathy versus leg cramps. There may also be an anxiety component to this as well. I do not feel narcotic pain medication is indicated, and I also do not feel that any imaging is indicated. She has had no trauma. She was given 1 gabapentin tablet here in the emergency department. Laboratory work from today and she has normal sodium of 142, potassium normal at 3.7, chloride 106. Creatinine is chronically elevated and today is 1.34 consistent with her chronic kidney injury. Magnesium is also normal at 2.3. She was given gabapentin and I will write her prescription to take nightly 100 mg dispense #14. I feel she can be discharged to follow-up with her primary care provider. I do not feel she requires observation or admission at this time. Disposition is discharged home in stable condition. History & Record Review Discussion w/independent historian: EMS personnel and Patient Additional record(s) reviewed:: Prior ED visit and Prior labs Lab Data Attestation: I reviewed the patient's lab results. Labs: Laboratory Results - last 24 hr 01/19/23 01/19/23 03:40 04:02 Sodium Cancelled 142 Potassium Cancelled 3.7 Chloride Cancelled 106 Carbon Dioxide Cancelled 29.0 Anion Gap Cancelled 7 BUN Cancelled 11 Creatinine Cancelled 1.34 H Estim Creat Clear Calc Cancelled 42.41 Est GFR (MDRD) Af Amer Cancelled 53 L Est GFR (MDRD) Non-Af Cancelled 44 L BUN/Creatinine Ratio Cancelled 8.2 L Glucose Cancelled 127 H Calcium Cancelled 9.5 Magnesium Cancelled 2.3 Discharge Plan Triage Chief Complaint: Lower Extremity Injury ED Provider: [place] Dx/Rx/DC Orders Clinical Impression: Leg cramps, Bilateral leg pain Instructions: ED Leg Spasm, ED Pain, Acute, Uncertain Cause Prescriptions: New gabapentin 100 mg capsule 100 mg PO QHS PRN (Reason: leg cramps) Qty: 14 0RF No Action Ubrelvy 100 mg tablet 100 mg PO DAILY Rx Instructions: as a single dose; may repeat once in >=2 hours after first dose if needed budesonide-formoterol [Symbicort] 160-4.5 mcg/actuation HFA aerosol inhaler 2 puff INHALATION BID Nurtec ODT 75 mg tablet,disintegrating 75 mg PO ONCE gabapentin 100 mg capsule 100 mg PO TID Emgality Pen 120 mg/mL pen injector 120 mg subcut QMONTH tizanidine 4 mg tablet 4 mg PO QHS PRN (Reason: muscle relaxer) Trelegy Ellipta 100-62.5-25 mcg blister with device 1 ea INHALATION DAILY lorazepam 1 mg tablet 1 mg PO TID PRN (Reason: Anxiety) Qulipta 60 mg tablet 60 mg PO DAILY promethazine 25 mg tablet 25 mg PO Q4H PRN (Reason: nausea and vomiting) Qty: 20 0RF tramadol 50 mg tablet 50 mg PO TID Patient Comments: TAKE 1 TABLET BY MOUTH THREE TIMES DAILY FOR 28 DAYS progesterone micronized 200 mg capsule 200 mg PO DAILY Patient Comments: Take 2 capsules at bedtime ProAir RespiClick 90 mcg/actuation aerosol powdr breath activated 2 inh INHALATION 4X/DAY PRN (Reason: Shortness Of Breath) Qty: 1 0RF doxycycline monohydrate 100 mg capsule 100 mg PO BID Qty: 14 0RF Hold Instructions: not taking albuterol sulfate 90 mcg/actuation HFA aerosol inhaler 2 puff inhalation Q4H PRN (Reason: shortness of breath or wheezing) Patient Comments: Two puffs every four hours as needed atorvastatin 80 mg Tablet 80 mg PO QHS Qty: 30 0RF cefdinir 300 mg capsule 300 mg PO BID Qty: 14 0RF Hold Instructions: not taking dicyclomine 10 mg capsule 20 mg PO Q6H PRN PRN (Reason: abdominal pain) Qty: 20 0RF ondansetron 4 mg tablet,disintegrating 8 mg PO Q8H PRN PRN (Reason: Nausea) Qty: 20 0RF magnesium citrate [Citroma] Solution 300 ml PO DAILY PRN (Reason: constipation) Qty: 296 0RF ondansetron [ondansetron] 4 mg tablet,disintegrating 4 mg PO Q8H PRN PRN (Reason: Nausea) Qty: 10 0RF metoclopramide HCl [Reglan] 10 mg tablet 10 mg PO Q6H PRN (Reason: nausea and vomiting) Qty: 20 0RF GaviLyte-C 240-22.72-6.72 -5.84 gram recon soln 240 ml PO Q10M PRN Qty: 4000 0RF Rx Instructions: until fecal effluent is clear citalopram 40 mg tablet 40 mg PO DAILY amlodipine 10 mg tablet 10 mg PO DAILY Qty: 90 3RF valsartan 320 mg tablet 160 mg PO BID Qty: 90 3RF levothyroxine 175 mcg tablet 175 mcg PO DAILY Qty: 30 1RF Primary Care Provider: Halina Johnson Referrals: Halina Johnson, DO [Primary Care Provider] - As soon as possible Disposition Disposition: Home, Self Care
[2023-01-19] MEDS: Gabapentin 100 MG Capsule PO (04:06)
[2023-01-19] MEDS: Ondansetron 4 MG/2 ML Vial IV (04:06)
[2023-01-19 04:31] LABS: Anion Gap 7 (5-15); BUN 11 mg/dL (7-18); BUN/Creat Ratio 8.2 RATIO (10-20); Calcium,Total 9.5 mg/dL (8.5-10.1); Chloride 106 mmol/L (98-107); Creatinine, Serum 1.34 mg/dL (0.55-1.02); EST Glomerular Filtration Rate 44 mL/min (>60); Est Glom Filt Rate - Afr Amer 53 mL/min (>60); Estimated Creatinine Clearance 42.41 ml/min; Glucose 127 mg/dL (74-106); Magnesium 2.3 mg/dL (1.6-2.6); Potassium 3.7 mmol/L (3.5-5.1); Sodium Level 142 mmol/L (136-145)
[2023-01-19 05:12] VITALS: BP 145/75; PULSE 62; RESP 16; O2SAT 96
== END 2023-01-19 05:15 | disposition home or self-care (01) ==
PROVIDERS: Emergency Provider Emergency Medicine; PCP Family Medicine; Visit Provider Emergency Medicine
DX: M79.604 Pain in right leg (principal); J44.9 Chronic obstructive pulmonary disease, unspecified; E11.22 Type 2 diabetes mellitus with diabetic chronic kidney disease; M79.605 Pain in left leg; N18.9 Chronic kidney disease, unspecified; G47.33 Obstructive sleep apnea (adult) (pediatric)
CPT/HCPCS: 80048; 83735; 96374; 99284; A4216; J2405

== ENCOUNTER 2023-02-05 11:40 | Emergency (ER) | payer MEDICARE, MEDICAID, SELFPAY ==
[2023-02-05 11:43] VITALS: BP 162/98; PULSE 85; RESP 14; TEMP 36.8; O2SAT 98; BMI 50.1
--- NOTE | 2023-02-05 11:45 | ED.VIS.CHEST ---
HPI <ROBLES Hammond - Last Filed: 02/05/23 15:39> History of Present Illness Chief Complaint: Chest Pain Narrative Narrative: 52-year-old female with PMH of HTN, HLD, DM2, CAD, COPD, GERD presents with chest pain and shortness of breath that started last night. Around 2 AM she woke up with a cough, midsternal chest pressure, and feels short of breath. She was wearing her BiPAP last night for DAVY. She states this morning she has used her inhaler with no relief. She thinks she needs a breathing treatment. She denies pain in her jaw or arm. No fever or chills. She denies smoking history. She sees [facility] and states she had a normal stress test in November. PFSH <ROBLES Hammond - Last Filed: 02/05/23 15:39> [facility] Medical History Abnormal glucose Anemia Anxiety Arthritis Asthma BiPAP (biphasic positive airway pressure) dependence Cardiac murmur Cardiology follow-up encounter Celiac disease Chest pain Cholelithiasis Chronic kidney disease Constipation COPD (chronic obstructive pulmonary disease) Depression Diabetes mellitus Dietary restriction Difficulty swallowing Dyspnea on exertion GERD (gastroesophageal reflux disease) Gout History of chronic back pain History of chronic kidney disease History of echocardiogram History of edema History of pain when walking History of stress test Hydronephrosis Hyperlipidemia Hypersomnia Hypertension Hypothyroidism Injury of head and neck Iron deficiency anemia Kidney stones Leg cramps Microcytic anemia Migraine headache Morbid obesity with BMI of 40.0-44.9, adult Non-smoker Noncompliance DAVY treated with BiPAP Post-menopausal Pulmonary embolism Restless leg syndrome Seasonal allergies Shortness of breath on exertion Syncope Thyroid disease Ureterolithiasis UTI (urinary tract infection) Vitamin B12 deficiency Vitamin D deficiency Wears glasses Home Medications citalopram 40 mg tablet 40 mg PO DAILY antidepressant/antianxiety 07/27/19 [History Last Taken 05/04/22] budesonide-formoterol HFA 160 mcg-4.5 mcg/actuation aerosol inhaler (Symbicort) 2 puff inhalation BID inhaler 04/02/20 [History Last Taken 05/04/22] ubrogepant 100 mg tablet (Ubrelvy) 100 mg PO DAILY migraines 04/02/20 [History Last Taken 05/04/22] rimegepant 75 mg disintegrating tablet (Nurtec ODT) 75 mg PO ONCE migraines 06/19/20 [History Last Taken 05/04/22] fluticasone fur. 100 mcg-umeclid 62.5 mcg-vilant 25 mcg inhalat.powder (Trelegy Ellipta) 1 ea inhalation DAILY COPD 08/14/20 [History Last Taken 05/04/22] gabapentin 100 mg capsule 100 mg PO TID neuropathy 09/30/20 [History Last Taken 05/04/22] galcanezumab-gnlm 120 mg/mL subcutaneous pen injector (Emgality Pen) 120 mg subcut QMONTH MIGRAINES 08/19/21 [History Last Taken 09/26/22] tizanidine 4 mg tablet 4 mg PO QHS PRN muscle relaxer 03/03/22 [History Last Taken 05/03/22] atogepant 60 mg tablet (Qulipta) 60 mg PO DAILY MIGRAINES 05/04/22 [History Last Taken 05/04/22] lorazepam 1 mg tablet 1 mg PO TID PRN Anxiety 05/04/22 [History Last Taken Unknown] promethazine 25 mg tablet 25 mg PO Q4H PRN nausea and vomiting #20 tabs 05/14/22 [Rx Last Taken Unknown] progesterone micronized 200 mg capsule 200 mg PO DAILY hormones 10/11/22 [History Last Taken Unknown] tramadol 50 mg tablet 50 mg PO TID pain 10/11/22 [History Last Taken Unknown] amlodipine 10 mg tablet 10 mg PO DAILY blood pressure #90 tabs 10/28/22 [Rx Last Taken Unknown] valsartan 320 mg tablet 160 mg (1/2 x 320 mg) PO BID BLOOD PRESSURE #90 tabs 10/28/22 [Rx Last Taken Unknown] albuterol sulfate 90 mcg/actuation breath activated powder inhaler (ProAir RespiClick) 2 inh inhalation 4X/DAY PRN Shortness Of Breath #1 ea 11/07/22 [Rx Last Taken Unknown] doxycycline monohydrate 100 mg capsule 100 mg PO BID #14 CAPSULES 11/12/22 [Rx Last Taken Unknown] levothyroxine 175 mcg tablet 175 mcg PO DAILY order as courtesy until pt sees PCP 11/25/22 #30 tabs 11/18/22 [Rx Last Taken Unknown] cefdinir 300 mg capsule 300 mg PO BID #14 caps 12/04/22 [Rx Last Taken Unknown] dicyclomine 10 mg capsule 20 mg (2 x 10 mg) PO Q6H PRN PRN abdominal pain #20 CAPSULES 12/20/22 [Rx Last Taken Unknown] ondansetron 4 mg disintegrating tablet 8 mg (2 x 4 mg) PO Q8H PRN PRN Nausea #20 tabs 12/20/22 [Rx Last Taken Unknown] albuterol sulfate 90 mcg/actuation aerosol inhaler 2 puff inhalation Q4H PRN shortness of breath or wheezing 12/25/22 [History Last Taken Unknown] atorvastatin 80 mg tablet 80 mg PO QHS #30 tabs 12/25/22 [Rx Last Taken Unknown] magnesium citrate (Citroma oral solution) 300 ml PO DAILY PRN constipation #296 mL 01/02/23 [Rx Last Taken Unknown] ondansetron 4 mg disintegrating tablet 4 mg PO Q8H PRN PRN Nausea #10 tabs 01/03/23 [Rx Last Taken Unknown] metoclopramide HCl 10 mg tablet (Reglan) 10 mg PO Q6H PRN nausea and vomiting #20 tabs 01/07/23 [Rx Last Taken Unknown] peg 3350 240 gram-electrolytes 22.72 gram-6.72 g-5.84 g powdr for soln (Gavilyte-C) 240 ml PO Q10M PRN #4,000 mL 01/07/23 [Rx Last Taken Unknown] gabapentin 100 mg capsule 100 mg PO QHS PRN leg cramps #14 caps 01/19/23 [Rx Last Taken Unknown] Allergy/AdvReac Type Severity Reaction Status Date / Time hydrochlorothiazide AdvReac Intermediate Contributes Verified 02/05/23 11:48 to gout naproxen [From Naprosyn] AdvReac Intermediate Nausea Verified 02/05/23 11:48 aspirin AdvReac Nausea Verified 02/05/23 11:48 Family History Father , Age 72 Hypertension Mother CAD (coronary artery disease) Myocardial infarction, Onset Age: 55 Hypertension Sister CAD (coronary artery disease) Brother Cancer Surgical History History of History of cardiac catheterization History of carpal tunnel surgery of left wrist History of carpal tunnel surgery of right wrist History of left heart catheterization (11/11/20) history of uterine ablation Hx of cystoscopy Social History household members: none housing: apartment Smoking Status: Never smoker alcohol intake: never substance use type: does not use caffeine: No ROS <ROBLES Hammond - Last Filed: 02/05/23 15:39> ROS ED ROS Narrative Constitutional: Negative for fever, chills, malaise. CVS: Positive for chest pain. Negative for palpitations, syncope. Respiratory: Positive for shortness of breath, cough. GI: Negative for abdominal pain, nausea, vomiting, melena, hematochezia. Neuro: Negative for headache. EXAM <ROBLES Hammond - Last Filed: 02/05/23 15:39> Physical Exam Narrative Exam Narrative: CONST: Obese female sitting in no acute distress. EYES: Normal inspection. ENT: Normal inspection, moist mucous membranes. NECK: Normal inspection. RESP: No respiratory distress, CTAB. CVS: Regular rate and rhythm, no murmur, no gallop. ABD: Soft and nontender, no guarding or rebound, nondistended. SKIN: Color normal, no rash, warm, dry, intact. EXTREMITIES: Normal appearance, no pedal edema. NEURO: Oriented x4. PSYCH: Normal affect. Const Vital Signs: 02/05/23 11:43 02/05/23 12:07 02/05/23 11:40 Temperature 98.2 F Temperature Source Temporal Pulse Rate 85 Respiratory Rate 14 16 Respiratory Effort Normal Non-Labored Respiratory Pattern Normal Blood Pressure 162/98 H Blood Pressure Mean 119 Pulse Ox 98 Oxygen Delivery Method Room Air 02/05/23 11:51 02/05/23 13:40 Temperature Temperature Source Pulse Rate Respiratory Rate Respiratory Effort Respiratory Pattern Blood Pressure 156/102 H Blood Pressure Mean 120 Pulse Ox Oxygen Delivery Method Room Air <Dr. Pipo Merritt MD - Last Filed: 02/05/23 12:37> Physical Exam Const Vital Signs: 02/05/23 11:43 02/05/23 12:07 02/05/23 11:40 Temperature 98.2 F Temperature Source Temporal Pulse Rate 85 Respiratory Rate 14 16 Respiratory Effort Normal Non-Labored Respiratory Pattern Normal Blood Pressure 162/98 H Blood Pressure Mean 119 Pulse Ox 98 Oxygen Delivery Method Room Air 02/05/23 11:51 02/05/23 13:40 Temperature Temperature Source Pulse Rate Respiratory Rate Respiratory Effort Respiratory Pattern Blood Pressure 156/102 H Blood Pressure Mean 120 Pulse Ox Oxygen Delivery Method Room Air [facility] <ROBLES Hammond - Last Filed: 02/05/23 15:39> [facility] Narrative Medical decision making narrative: Earlier this morning she developed cough, chest pain, shortness of breath. She appears well and nontoxic. Vital signs are within normal limits. She is 98% on room air and able to speak in full sentences in no distress. Heart is regular with no murmurs and lungs are clear although somewhat limited by body habitus. Pulses are equal and symmetric. She has no evidence of fluid overload. I suspect URI but since she has chest pain and multiple cardiac risk factors labs and cardiac enzymes were ordered. She was treated with a DuoNeb. White count is 11.3, hemoglobin 11.3 which she has been not low in the past. BMP and renal function are unremarkable. Creatinine 1.21 is consistent with her chronic kidney disease. Glucose is 116 with normal CO2 and anion gap. EKG is nonischemic and cardiac enzymes are 7, delta 6. COVID and influenza testing are negative and CXR shows no acute process. I suspect she has a viral illness with a cough and shortness of breath. Although she had no wheezing and tried a DuoNeb she states this did not really change her symptoms but she is speaking in full sentences in no distress and not requiring oxygen. I discussed symptomatic care at home and return precautions and she was discharged in stable condition. Differential: Viral URI, pneumonia, COPD exacerbation, ACS External records reviewed: Stress test 12/25/2022 shows no diagnostic ischemic changes, no arrhythmias, EF 73%. I have personally performed a face to face assessment of the patient and have reviewed the LEIGH Note. I performed a substantive portion of the visit including all aspects of the following. My winslow findings include: History is 52-year-old female URI symptoms began earlier this morning. Shortness of breath. Nonproductive cough. No fever. No vomiting or diarrhea. Exam is [52-year-old female. Vital signs stable afebrile. Pulse ox 98% on room air no signs hypoxia. No distress. HEENT exam unremarkable. Neck nontender no JVD. Lungs good auscultation bilaterally. Currently no rales, rhonchi or wheezing. Equal symmetrical. Heart regular rhythm rate about 85 no murmur. Chest wall and ribs nontender. Abdomen soft nontender. Moving all 4 extremities. Calves are nontender without edema or cords. Back nontender. Neurologically she is awake and alert with no focal motor deficits. Benign exam.] Medical Decision Making [middle-age female with URI symptoms. Undergo cardiac workup due to her history.] Other additions or changes: [None] Lab Data Labs: Laboratory Results - last 24 hr 02/05/23 02/05/23 12:30 14:46 WBC 11.3 H RBC 3.49 L Hgb 11.3 L Hct 35.3 L MCV 101.1 H MCH 32.4 H MCHC 32.0 RDW Std Deviation 64.1 H RDW Coeff of Alfredo 17.1 H Plt Count 351 MPV 9.7 Immature Gran % (Auto) 1.000 H Neut % (Auto) 72.3 H Lymph % (Auto) 14.2 L [place] % (Auto) 7.2 Eos % (Auto) 4.5 Baso % (Auto) 0.8 Absolute Neuts (auto) 8.2 H Absolute Lymphs (auto) 1.61 Nucleated RBC % 0 Sodium 139 Potassium 3.7 Chloride 108 H Carbon Dioxide 25.0 Anion Gap 6 BUN 10 Creatinine 1.21 H Estim Creat Clear Calc 46.96 Est GFR (MDRD) Af Amer 60 Est GFR (MDRD) Non-Af 50 L BUN/Creatinine Ratio 8.3 L Glucose 116 H Calcium 9.0 Troponin I High Sens 7 6 Radiography Diagnostic Testing: Clinical Impression(s) from Imaging Studies Chest X-Ray 02/05/23 11:51 IMPRESSION: No acute cardiopulmonary process identified. Electronically Signed: Lorna Cali MD at 12:54 EST , EKG Initial EKG: Attestation: I personally reviewed and interpreted this EKG as follows: Interpretation: Sinus Rhythm and No Acute Injury Pattern Comments: Normal sinus rhythm at 80 bpm Nonspecific T wave abnormality, no STEMI criteria <Dr. Pipo Merritt MD - Last Filed: 02/05/23 12:37> [facility] Narrative Medical decision making narrative: External records reviewed: Stress test 12/25/2022 shows no diagnostic ischemic changes, no arrhythmias, EF 73%. I have personally performed a face to face assessment of the patient and have reviewed the LEIGH Note. I performed a substantive portion of the visit including all aspects of the following. My winslow findings include: History is 52-year-old female URI symptoms began earlier this morning. Shortness of breath. Nonproductive cough. No fever. No vomiting or diarrhea. Exam is [52-year-old female. Vital signs stable afebrile. Pulse ox 98% on room air no signs hypoxia. No distress. HEENT exam unremarkable. Neck nontender no JVD. Lungs good auscultation bilaterally. Currently no rales, rhonchi or wheezing. Equal symmetrical. Heart regular rhythm rate about 85 no murmur. Chest wall and ribs nontender. Abdomen soft nontender. Moving all 4 extremities. Calves are nontender without edema or cords. Back nontender. Neurologically she is awake and alert with no focal motor deficits. Benign exam.] Medical Decision Making [middle-age female with URI symptoms. Undergo cardiac workup due to her history.] Other additions or changes: [None] History & Record Review Discussion w/independent historian: Patient Additional record(s) reviewed:: Prior inpatient record, Prior outpatient record, Prior ED visit and Prior labs Lab Data Attestation: I reviewed the patient's lab results. Labs: Laboratory Results - last 24 hr 02/05/23 02/05/23 12:30 14:46 WBC 11.3 H RBC 3.49 L Hgb 11.3 L Hct 35.3 L MCV 101.1 H MCH 32.4 H MCHC 32.0 RDW Std Deviation 64.1 H RDW Coeff of Alfredo 17.1 H Plt Count 351 MPV 9.7 Immature Gran % (Auto) 1.000 H Neut % (Auto) 72.3 H Lymph % (Auto) 14.2 L [place] % (Auto) 7.2 Eos % (Auto) 4.5 Baso % (Auto) 0.8 Absolute Neuts (auto) 8.2 H Absolute Lymphs (auto) 1.61 Nucleated RBC % 0 Sodium 139 Potassium 3.7 Chloride 108 H Carbon Dioxide 25.0 Anion Gap 6 BUN 10 Creatinine 1.21 H Estim Creat Clear Calc 46.96 Est GFR (MDRD) Af Amer 60 Est GFR (MDRD) Non-Af 50 L BUN/Creatinine Ratio 8.3 L Glucose 116 H Calcium 9.0 Troponin I High Sens 7 6 Radiography Chest X-Ray - ED: 1 View, Read by ED Physician, Heart, Lungs, Mediastinum, Bony Structures, No Acute Disease and Chronic Changes Diagnostic Testing: Clinical Impression(s) from Imaging Studies Chest X-Ray 02/05/23 11:51 IMPRESSION: No acute cardiopulmonary process identified. Electronically Signed: Lorna Cali MD at 12:54 EST Reading Location ID and State: [facility] / [place] Tel , Service support , Chest, portable, single view interpreted by myself shows no acute abnormality. Normal cardiac silhouette. Normal mediastinum. Normal lung lee. No infiltrates. No effusions. Discharge Plan Triage Chief Complaint: Chest Pain ED Midlevel Provider: Ely Basurto ED Provider: Pipo Merritt Dx/Rx/DC Orders Clinical Impression: Upper respiratory infection, Atypical chest pain Instructions: Adult Self-Care for Colds Prescriptions: No Action Ubrelvy 100 mg tablet 100 mg PO DAILY Rx Instructions: as a single dose; may repeat once in >=2 hours after first dose if needed budesonide-formoterol [Symbicort] 160-4.5 mcg/actuation HFA aerosol inhaler 2 puff INHALATION BID Nurtec ODT 75 mg tablet,disintegrating 75 mg PO ONCE gabapentin 100 mg capsule 100 mg PO TID Emgality Pen 120 mg/mL pen injector 120 mg subcut QMONTH tizanidine 4 mg tablet 4 mg PO QHS PRN (Reason: muscle relaxer) Trelegy Ellipta 100-62.5-25 mcg blister with device 1 ea INHALATION DAILY lorazepam 1 mg tablet 1 mg PO TID PRN (Reason: Anxiety) Qulipta 60 mg tablet 60 mg PO DAILY promethazine 25 mg tablet 25 mg PO Q4H PRN (Reason: nausea and vomiting) Qty: 20 0RF tramadol 50 mg tablet 50 mg PO TID Patient Comments: TAKE 1 TABLET BY MOUTH THREE TIMES DAILY FOR 28 DAYS progesterone micronized 200 mg capsule 200 mg PO DAILY Patient Comments: Take 2 capsules at bedtime ProAir RespiClick 90 mcg/actuation aerosol powdr breath activated 2 inh INHALATION 4X/DAY PRN (Reason: Shortness Of Breath) Qty: 1 0RF doxycycline monohydrate 100 mg capsule 100 mg PO BID Qty: 14 0RF Hold Instructions: not taking albuterol sulfate 90 mcg/actuation HFA aerosol inhaler 2 puff inhalation Q4H PRN (Reason: shortness of breath or wheezing) Patient Comments: Two puffs every four hours as needed atorvastatin 80 mg Tablet 80 mg PO QHS Qty: 30 0RF gabapentin 100 mg capsule 100 mg PO QHS PRN (Reason: leg cramps) Qty: 14 0RF cefdinir 300 mg capsule 300 mg PO BID Qty: 14 0RF Hold Instructions: not taking dicyclomine 10 mg capsule 20 mg PO Q6H PRN PRN (Reason: abdominal pain) Qty: 20 0RF ondansetron 4 mg tablet,disintegrating 8 mg PO Q8H PRN PRN (Reason: Nausea) Qty: 20 0RF magnesium citrate [Citroma] Solution 300 ml PO DAILY PRN (Reason: constipation) Qty: 296 0RF ondansetron [ondansetron] 4 mg tablet,disintegrating 4 mg PO Q8H PRN PRN (Reason: Nausea) Qty: 10 0RF metoclopramide HCl [Reglan] 10 mg tablet 10 mg PO Q6H PRN (Reason: nausea and vomiting) Qty: 20 0RF GaviLyte-C 240-22.72-6.72 -5.84 gram recon soln 240 ml PO Q10M PRN Qty: 4000 0RF Rx Instructions: until fecal effluent is clear citalopram 40 mg tablet 40 mg PO DAILY amlodipine 10 mg tablet 10 mg PO DAILY Qty: 90 3RF valsartan 320 mg tablet 160 mg PO BID Qty: 90 3RF levothyroxine 175 mcg tablet 175 mcg PO DAILY Qty: 30 1RF Primary Care Provider: Halina Johnson Referrals: Halina Johnson, DO [Primary Care Provider] - Activity Restrictions/Additional Instructions: I suspect you have a viral upper respiratory illness and recommend symptomatic treatment such as rest, fluids, Tylenol, [id number] cough medication as needed. Use your inhaler. If your symptoms significantly worsen return to the ER. Disposition Disposition: Home, Self Care
--- NOTE | 2023-02-05 11:51 | RAD_ITS ---
HISTORY: chest pain. TECHNIQUE: XR Chest 1 View. COMPARISON: 01/13/2023. FINDINGS: CARDIOMEDIASTINAL BORDERS: Cardiac silhouette within normal limits in size. Mediastinal contour unremarkable. LUNGS: Radiographically clear. PLEURA: No pleural effusion or pneumothorax seen. OSSEOUS STRUCTURES: Unremarkable. RAD/Chest 1 View (Portable) IMPRESSION: No acute cardiopulmonary process identified. Electronically Signed: Lorna Cali MD at 12:54 EST ,
--- NOTE | 2023-02-05 11:51 | EKG12_ITS ---
Test Reason : CP Blood Pressure : / mmHG Vent. Rate : 080 BPM Atrial Rate : 080 BPM P-R Int : 158 ms QRS Dur : 086 ms QT Int : 374 ms P-R-T Axes : 036 004 223 degrees QTc Int : 431 ms Normal sinus rhythm Nonspecific T wave abnormality Abnormal ECG When compared with ECG of 13-JAN-2023 02:19, Borderline criteria for Inferior infarct are no longer Present T wave inversion less evident in Lateral leads Confirmed by CHAR GONZALEZ, RADHA ([id number]), editorial manager SONJA ZABALA ([id number]) on 02/08/2023 6:19:14 AM Referred By: Pipo Merritt Confirmed By:TODD PARDO MD
[2023-02-05] MEDS: Ipratropium/Albuterol Sulfate 3 ML AMPUL.NEB INHALATION (11:57)
[2023-02-05 12:07] VITALS: RESP 16
[2023-02-05] MEDS: Aspirin 81 MG TAB.CHEW 324 MG PO (12:31)
[2023-02-05 12:47] LABS: Absolute Lymphocyte Count 1.61 X10^3/uL (0.83-4.51); Absolute Neutrophil Count 8.2 X10^3/uL (2.0-7.7); Basophil# 0.09 X10^3/uL; Basophil% 0.8 % (0-1); Eosinophil# 0.51 X10^3/uL; Eosinophils% 4.5 % (0-5); Hematocrit 35.3 % (37-47); Hemoglobin 11.3 g/dL (12.0-15.0); Lymphocyte # 1.61 X10^3/ul (0.83-4.51); Lymphocyte % 14.2 % (19-41); Mean Corpuscular Hgb 32.4 pg (27.0-32.0); Mean Corpuscular Volume 101.1 fL (81-99); Mean Platelet Vol. 9.7 fl (6.2-12.0); Monocyte# 0.82 X10^3/uL; Monocyte% 7.2 % (0-10); NRBC Flagged by Analyzer 0 % (0-5); Neutrophil # 8.19 X10^3/uL (2.7-7.7); Neutrophil % 72.3 % (47-70); Platelet Count 351 K/mm3 (150-450); RBC Distribution Width CV 17.1 % (11.6-14.6); RBC Distribution Width SD 64.1 fl (35.1-43.9); Red Blood Count 3.49 M/mm3 (4.2-5.4); White Blood Count 11.3 K/mm3 (4.4-11.0)
[2023-02-05 12:59] LABS: Anion Gap 6 (5-15); BUN 10 mg/dL (7-18); BUN/Creat Ratio 8.3 RATIO (10-20); Chloride 108 mmol/L (98-107); Creatinine, Serum 1.21 mg/dL (0.55-1.02); EST Glomerular Filtration Rate 50 mL/min (>60); Est Glom Filt Rate - Afr Amer 60 mL/min (>60); Estimated Creatinine Clearance 46.96 ml/min; Glucose 116 mg/dL (74-106); Potassium 3.7 mmol/L (3.5-5.1); Sodium Level 139 mmol/L (136-145); Troponin-I HS (w/2H Reflex) 7 pg/mL (3.0-54.0)
[2023-02-05 13:40] VITALS: BP 156/102
[2023-02-05] MEDS: Acetaminophen 500 MG Tablet 1000 MG PO (13:47)
[2023-02-05 14:35] LABS: Reflex Troponin-HS? (from REC) Y
[2023-02-05 15:00] VITALS: RESP 16
[2023-02-05 15:36] LABS: Troponin-I HS 6 pg/mL (3.0-54.0)
== END 2023-02-05 15:45 | disposition home or self-care (01) ==
PROVIDERS: Physician Assistant; Emergency Provider Emergency Medicine; PCP Family Medicine; Referring Provider Emergency Medicine; Visit Provider Emergency Medicine
DX: J06.9 Acute upper respiratory infection, unspecified (principal); J44.9 Chronic obstructive pulmonary disease, unspecified; E11.22 Type 2 diabetes mellitus with diabetic chronic kidney disease; R07.89 Other chest pain; N18.9 Chronic kidney disease, unspecified; I25.10 Atherosclerotic heart disease of native coronary artery without angina pectoris; G47.33 Obstructive sleep apnea (adult) (pediatric); Z86.711 Personal history of pulmonary embolism
CPT/HCPCS: 71045; 80048; 84484; 85025; 87428; 93005; 94640; 99284; A4216

== ENCOUNTER 2023-02-08 18:39 | Emergency (ER) | payer MEDICARE, MEDICAID, SELFPAY ==
[2023-02-08 18:40] VITALS: BP 124/75; PULSE 99; RESP 16; TEMP 36.2; O2SAT 99; BMI 49.9
--- NOTE | 2023-02-08 19:07 | EX.ED.DYSGE1 ---
HPI History of Present Illness Chief Complaint: Abd Pain Informant: patient Narrative Narrative: Patient presents with dysuria frequency for about 2 days. No nausea vomiting fevers or chills. She states her appetite might be down a little bit but she is able to eat and drink. She also has lower back pain. However, lower back pain is chronic for her. She states her urine is not real dark. Normally when she has UTI her urine is dark but other than that this feels like a UTI. She denies being diabetic. [facility] Medical History Abnormal glucose Anemia Anxiety Arthritis Asthma BiPAP (biphasic positive airway pressure) dependence Cardiac murmur Cardiology follow-up encounter Celiac disease Chest pain Cholelithiasis Chronic kidney disease Constipation COPD (chronic obstructive pulmonary disease) Depression Diabetes mellitus Dietary restriction Difficulty swallowing Dyspnea on exertion GERD (gastroesophageal reflux disease) Gout History of chronic back pain History of chronic kidney disease History of echocardiogram History of edema History of pain when walking History of stress test Hydronephrosis Hyperlipidemia Hypersomnia Hypertension Hypothyroidism Injury of head and neck Iron deficiency anemia Kidney stones Leg cramps Microcytic anemia Migraine headache Morbid obesity with BMI of 40.0-44.9, adult Non-smoker Noncompliance DAVY treated with BiPAP Post-menopausal Pulmonary embolism Restless leg syndrome Seasonal allergies Shortness of breath on exertion Syncope Thyroid disease Ureterolithiasis UTI (urinary tract infection) Vitamin B12 deficiency Vitamin D deficiency Wears glasses Home Medications citalopram 40 mg tablet 40 mg PO DAILY antidepressant/antianxiety 07/27/19 [History Last Taken 05/04/22] budesonide-formoterol HFA 160 mcg-4.5 mcg/actuation aerosol inhaler (Symbicort) 2 puff inhalation BID inhaler 04/02/20 [History Last Taken 05/04/22] ubrogepant 100 mg tablet (Ubrelvy) 100 mg PO DAILY migraines 04/02/20 [History Last Taken 05/04/22] rimegepant 75 mg disintegrating tablet (Nurtec ODT) 75 mg PO ONCE migraines 06/19/20 [History Last Taken 05/04/22] fluticasone fur. 100 mcg-umeclid 62.5 mcg-vilant 25 mcg inhalat.powder (Trelegy Ellipta) 1 ea inhalation DAILY COPD 08/14/20 [History Last Taken 05/04/22] gabapentin 100 mg capsule 100 mg PO TID neuropathy 09/30/20 [History Last Taken 05/04/22] galcanezumab-gnlm 120 mg/mL subcutaneous pen injector (Emgality Pen) 120 mg subcut QMONTH MIGRAINES 08/19/21 [History Last Taken 09/26/22] tizanidine 4 mg tablet 4 mg PO QHS PRN muscle relaxer 03/03/22 [History Last Taken 05/03/22] atogepant 60 mg tablet (Qulipta) 60 mg PO DAILY MIGRAINES 05/04/22 [History Last Taken 05/04/22] lorazepam 1 mg tablet 1 mg PO TID PRN Anxiety 05/04/22 [History Last Taken Unknown] promethazine 25 mg tablet 25 mg PO Q4H PRN nausea and vomiting #20 tabs 05/14/22 [Rx Last Taken Unknown] progesterone micronized 200 mg capsule 200 mg PO DAILY hormones 10/11/22 [History Last Taken Unknown] tramadol 50 mg tablet 50 mg PO TID pain 10/11/22 [History Last Taken Unknown] amlodipine 10 mg tablet 10 mg PO DAILY blood pressure #90 tabs 10/28/22 [Rx Last Taken Unknown] valsartan 320 mg tablet 160 mg (1/2 x 320 mg) PO BID BLOOD PRESSURE #90 tabs 10/28/22 [Rx Last Taken Unknown] albuterol sulfate 90 mcg/actuation breath activated powder inhaler (ProAir RespiClick) 2 inh inhalation 4X/DAY PRN Shortness Of Breath #1 ea 11/07/22 [Rx Last Taken Unknown] doxycycline monohydrate 100 mg capsule 100 mg PO BID #14 CAPSULES 11/12/22 [Rx Last Taken Unknown] levothyroxine 175 mcg tablet 175 mcg PO DAILY order as courtesy until pt sees PCP 11/25/22 #30 tabs 11/18/22 [Rx Last Taken Unknown] cefdinir 300 mg capsule 300 mg PO BID #14 caps 12/04/22 [Rx Last Taken Unknown] dicyclomine 10 mg capsule 20 mg (2 x 10 mg) PO Q6H PRN PRN abdominal pain #20 CAPSULES 12/20/22 [Rx Last Taken Unknown] albuterol sulfate 90 mcg/actuation aerosol inhaler 2 puff inhalation Q4H PRN shortness of breath or wheezing 12/25/22 [History Last Taken Unknown] atorvastatin 80 mg tablet 80 mg PO QHS #30 tabs 12/25/22 [Rx Last Taken Unknown] magnesium citrate (Citroma oral solution) 300 ml PO DAILY PRN constipation #296 mL 01/02/23 [Rx Last Taken Unknown] ondansetron 4 mg disintegrating tablet 4 mg PO Q8H PRN PRN Nausea #10 tabs 01/03/23 [Rx Last Taken Unknown] metoclopramide HCl 10 mg tablet (Reglan) 10 mg PO Q6H PRN nausea and vomiting #20 tabs 01/07/23 [Rx Last Taken Unknown] gabapentin 100 mg capsule 100 mg PO QHS PRN leg cramps #14 caps 01/19/23 [Rx Last Taken Unknown] levofloxacin 750 mg tablet 750 mg PO DAILY #6 tabs 02/08/23 [Rx Last Taken Unknown] Allergy/AdvReac Type Severity Reaction Status Date / Time hydrochlorothiazide AdvReac Intermediate Contributes Verified 02/08/23 18:41 to gout naproxen [From Naprosyn] AdvReac Intermediate Nausea Verified 02/08/23 18:41 aspirin AdvReac Nausea Verified 02/08/23 18:41 Family History Father , Age 72 Hypertension Mother CAD (coronary artery disease) Myocardial infarction, Onset Age: 55 Hypertension Sister CAD (coronary artery disease) Brother Cancer Surgical History History of History of cardiac catheterization History of carpal tunnel surgery of left wrist History of carpal tunnel surgery of right wrist History of left heart catheterization (11/11/20) history of uterine ablation Hx of cystoscopy Social History household members: none housing: apartment Smoking Status: Never smoker alcohol intake: never substance use type: does not use caffeine: No ROS ROS ED Constitutional Constitutional ED: Denies chills or fever(s) Eyes Eyes: Denies blurry vision or change in vision ENT ENT ED: Denies rhinorrhea Cardiovascular Cardiovascular: Denies chest pain or palpitations Respiratory/Chest Respiratory/Chest: Denies cough or dyspnea Gastrointestinal Gastrointestinal: Denies abdominal pain, diarrhea, nausea or vomiting Genitourinary Genitourinary ED: Reports dysuria and urinary frequency; Denies hematuria Musculoskeletal Musculoskeletal: Reports back pain Integumentary Denies rash Neurologic Neurologic: Denies headache(s) Hematologic/Lymphatic Hematologic/Lymphatic: Denies easy bleeding or easy bruising Allergic/Immunologic Allergic/Immunologic ED: Denies urticaria EXAM Physical Exam Narrative Exam Narrative: CONSTITUTIONAL: Patient is nontoxic in appearance. The patient looks comfortable. HEENT: No notable trauma. Mucous membranes moist. EYES: No conjunctival injection. No proptosis. CARDIOVASCULAR: Regular rate. Regular rhythm. No notable murmur. No JVD. RESPIRATORY: No respiratory distress. Breathing is unlabored. No wheezes. No rhonchi. No rales. No pain with a deep breath. Saturations are normal at 99% on room air showing no hypoxia. GASTROINTESTINAL: Obese but does not appear to be distended. Bowel sounds are normal. No tenderness. No guarding. No rebound. No palpable mass. No bruit. I do not get suprapubic tenderness. GENITOURINARY: No tenderness over the bladder. No CVA tenderness. Patient's back pain seems to be low lumbar sacral. It really does not seem to be in the CVA region. MUSCULOSKELETAL: Atraumatic. NEUROLOGICAL: Patient is alert and appropriate. No focal deficit noted. SKIN: No noted rashes. No diaphoresis. PSYCHIATRIC: Patient is calm. Mood is appropriate. Const Vital Signs: 02/08/23 18:40 02/08/23 19:11 02/08/23 19:11 Temperature 97.2 F L 97.5 F L 97.5 F L Temperature Source Temporal Temporal Temporal Pulse Rate 99 83 87 Respiratory Rate 16 26 H 18 Blood Pressure 124/75 H 139/72 H 139/72 H Blood Pressure Mean 91 94 94 Pulse Ox 99 100 100 Oxygen Delivery Method Room Air Room Air Room Air MDM MDM MDM Narrative Medical decision making narrative: Patient's urinalysis is cloudy, positive leukocyte Estrace, 50-100 white cells with only 0-5 squamous. This along with dysuria and frequency is consistent with a UTI. I looked up some recent cultures. She has had E. coli and some Pseudomonas. She is always been Levaquin sensitive. I will start Levaquin as it has a high rate of absorption. Patient is not febrile tachycardic tachypneic hypoxic or having any nausea vomiting. She is comfortable going home. I also checked glucose because of this frequency. Her sugar is essentially normal at 121. Patient should return if she has fevers vomiting pain or other complaints. She is complaining some back pain at this. This is a issue when she takes Advil for this. We will provide that here for her. Lab Data Attestation: I reviewed the patient's lab results. Labs: Laboratory Results - last 24 hr 02/08/23 02/08/23 19:18 19:19 Urine Color Yellow Urine Clarity Sl. Cloudy Urine pH 6.0 Ur Specific Grand Chain 1.010 Urine Protein 30 H Urine Glucose (UA) Normal Urine Ketones Negative Urine Occult Blood 50 H Urine Nitrite Negative Urine Bilirubin Negative Urine Urobilinogen Normal Ur Leukocyte Esterase 500 H Urine RBC 5-10 SEEN Urine WBC 50-100 SEEN Ur Squamous Epith Cells 0-5 SEEN Urine Bacteria 0 SEEN Urine Mucus 0 SEEN POC Glucose 121 H Discharge Plan Triage Chief Complaint: Abd Pain ED Provider: Bruno Whittaker Dx/Rx/DC Orders Clinical Impression: UTI (urinary tract infection) Instructions: Urinary Tract Infections in Women Prescriptions: New levofloxacin 750 mg tablet 750 mg PO DAILY Qty: 6 0RF No Action Ubrelvy 100 mg tablet 100 mg PO DAILY Rx Instructions: as a single dose; may repeat once in >=2 hours after first dose if needed budesonide-formoterol [Symbicort] 160-4.5 mcg/actuation HFA aerosol inhaler 2 puff INHALATION BID Nurtec ODT 75 mg tablet,disintegrating 75 mg PO ONCE gabapentin 100 mg capsule 100 mg PO TID Emgality Pen 120 mg/mL pen injector 120 mg subcut QMONTH tizanidine 4 mg tablet 4 mg PO QHS PRN (Reason: muscle relaxer) Trelegy Ellipta 100-62.5-25 mcg blister with device 1 ea INHALATION DAILY lorazepam 1 mg tablet 1 mg PO TID PRN (Reason: Anxiety) Qulipta 60 mg tablet 60 mg PO DAILY promethazine 25 mg tablet 25 mg PO Q4H PRN (Reason: nausea and vomiting) Qty: 20 0RF tramadol 50 mg tablet 50 mg PO TID Patient Comments: TAKE 1 TABLET BY MOUTH THREE TIMES DAILY FOR 28 DAYS progesterone micronized 200 mg capsule 200 mg PO DAILY Patient Comments: Take 2 capsules at bedtime ProAir RespiClick 90 mcg/actuation aerosol powdr breath activated 2 inh INHALATION 4X/DAY PRN (Reason: Shortness Of Breath) Qty: 1 0RF doxycycline monohydrate 100 mg capsule 100 mg PO BID Qty: 14 0RF Hold Instructions: not taking albuterol sulfate 90 mcg/actuation HFA aerosol inhaler 2 puff inhalation Q4H PRN (Reason: shortness of breath or wheezing) Patient Comments: Two puffs every four hours as needed atorvastatin 80 mg Tablet 80 mg PO QHS Qty: 30 0RF gabapentin 100 mg capsule 100 mg PO QHS PRN (Reason: leg cramps) Qty: 14 0RF cefdinir 300 mg capsule 300 mg PO BID Qty: 14 0RF Hold Instructions: not taking dicyclomine 10 mg capsule 20 mg PO Q6H PRN PRN (Reason: abdominal pain) Qty: 20 0RF magnesium citrate [Citroma] Solution 300 ml PO DAILY PRN (Reason: constipation) Qty: 296 0RF ondansetron [ondansetron] 4 mg tablet,disintegrating 4 mg PO Q8H PRN PRN (Reason: Nausea) Qty: 10 0RF metoclopramide HCl [Reglan] 10 mg tablet 10 mg PO Q6H PRN (Reason: nausea and vomiting) Qty: 20 0RF citalopram 40 mg tablet 40 mg PO DAILY amlodipine 10 mg tablet 10 mg PO DAILY Qty: 90 3RF valsartan 320 mg tablet 160 mg PO BID Qty: 90 3RF levothyroxine 175 mcg tablet 175 mcg PO DAILY Qty: 30 1RF Primary Care Provider: Halina Johnson Referrals: Halina Johnson, [Primary Care Provider] - 3-5 Days Disposition Disposition: Home, Self Care
[2023-02-08 19:11] VITALS: BP 139/72; PULSE 83; PULSE 87; RESP 18; RESP 26; TEMP 36.4; O2SAT 100
[2023-02-08 19:24] LABS: Bacteria 0 SEEN /hpf (None Seen); Color, Urine Yellow (Yellow); Glucose, Dipstick Normal (Normal); Ketone-Dipstick Negative (Negative); Leukocyte Esterase-Dipstick 500 /ul (Negative); Mucous, Urine 0 SEEN /hpf (<or=2+); Nitrite-Dipstick Negative (Negative); Occult Blood-Urine 50 /ul (Negative); Protein-Dipstick 30 mg/dl (Negative); Urine Bilirubin Dipstick Negative (Negative); Urine Clarity Sl. Cloudy (Clear); Urine Urobilinogen Normal (Normal)
[2023-02-08 19:37] LABS: Bedside Glucose 121 mg/dL (74-106)
[2023-02-08 19:38] LABS: Red Blood Cells-Urine 5-10 SEEN /hpf (0-5); Squamous Epithelial Cells - UA 0-5 SEEN /hpf (5-10); White Blood Cells 50-100 SEEN /hpf (0-5)
[2023-02-08] MEDS: Ibuprofen 200 MG Tablet 400 MG PO (21:05)
[2023-02-08] MEDS: levoFLOXacin 750 MG Tablet PO (21:05)
--- NOTE | 2023-02-08 21:11 | ED.RN ---
pt dropped ibuprofen on floor. new one pulled.
[2023-02-08 21:12] VITALS: BP 120/67; PULSE 75; RESP 18; O2SAT 93
== END 2023-02-08 21:12 | disposition home or self-care (01) ==
PROVIDERS: Emergency Provider Emergency Medicine; PCP Family Medicine; Visit Provider Emergency Medicine
DX: N39.0 Urinary tract infection, site not specified (principal); J44.9 Chronic obstructive pulmonary disease, unspecified; E11.22 Type 2 diabetes mellitus with diabetic chronic kidney disease; E66.01 Morbid (severe) obesity due to excess calories; Z68.42 Body mass index [BMI] 45.0-49.9, adult; I12.9 Hypertensive chronic kidney disease with stage 1 through stage 4 chronic kidney disease, or unspecified chronic kidney disease; N18.9 Chronic kidney disease, unspecified; Z79.51 Long term (current) use of inhaled steroids; Z79.899 Other long term (current) drug therapy; Z87.440 Personal history of urinary (tract) infections
CPT/HCPCS: 81001; 82962; 99283

== ENCOUNTER 2023-02-10 04:33 | Observation (INO) | payer MEDICARE, MEDICAID, SELFPAY ==
[2023-02-10 04:34] VITALS: BP 151/91; PULSE 88; RESP 14; TEMP 36.4; O2SAT 99; BMI 51.2
--- NOTE | 2023-02-10 04:45 | CT_ITS ---
EXAM: CT cervical spine. HISTORY: neck pain TECHNIQUE: No intravenous contrast. A radiation dose optimization technique was used for this scan. COMPARISON: None. LIMITATIONS: None. FRACTURES: None. SPINAL CANAL: No significant stenosis. DEGENERATIVE CHANGE: Mild degenerative change. SOFT TISSUE: Normal. OTHER: None. CONCLUSION: No acute fracture. Electronically Signed: Wilfrido Santana MD at 6:24 EST , CT/Spine Cervical without Contras IMPRESSION: undefined
--- NOTE | 2023-02-10 04:45 | CT_ITS ---
EXAM: CT brain without IV contrast. HISTORY: head trauma TECHNIQUE: No intravenous contrast. A radiation dose optimization technique was used for this scan. COMPARISON: Head CT January 12, 2023. LIMITATIONS: None. BRAIN: Mild low attenuation bilaterally within the deep white matter, likely secondary to chronic microvascular ischemia. VENTRICLES: No hydrocephalus. EXTRA-AXIAL SPACES: No acute hemorrhage. CALVARIUM/SKULL BASE: No acute fracture. FACE/SINUSES: No significant abnormality. SOFT TISSUES: Hematoma/laceration in the left parietal scalp.. OTHER: None. CONCLUSION: Scalp hematoma. No acute intracranial abnormality. Electronically Signed: Wilfrido Santana MD at 6:10 EST , CT/Brain/Head without Contrast IMPRESSION: undefined
--- NOTE | 2023-02-10 04:48 | EX.ED.DYSGE1 ---
HPI History of Present Illness Chief Complaint: Fall Informant: patient Narrative Narrative: Patient is a 52-year-old female presenting from home after fall and head injury. Patient states she was going to the bathroom and she fell. She is not sure if she just lost her balance or passed out. She struck the left side of her head. She is not sure if she lost consciousness. She is not on any blood thinners. She is complaining of headache as well as back pain. She called 911 was transferred to our emergency room. Of note patient was seen in her ER on 02/08, a day and a half ago, diagnosed with urinary tract infection. She was prescribed Levaquin. Currently denies any vision changes or nausea, chest pain or abdominal pain. No other complaints or concerns at this time reported. [facility] Medical History Abnormal glucose Anemia Anxiety Arthritis Asthma BiPAP (biphasic positive airway pressure) dependence Cardiac murmur Cardiology follow-up encounter Celiac disease Chest pain Cholelithiasis Chronic kidney disease Constipation COPD (chronic obstructive pulmonary disease) Depression Diabetes mellitus Dietary restriction Difficulty swallowing Dyspnea on exertion GERD (gastroesophageal reflux disease) Gout History of chronic back pain History of chronic kidney disease History of echocardiogram History of edema History of pain when walking History of stress test Hydronephrosis Hyperlipidemia Hypersomnia Hypertension Hypothyroidism Injury of head and neck Iron deficiency anemia Kidney stones Leg cramps Microcytic anemia Migraine headache Morbid obesity with BMI of 40.0-44.9, adult Non-smoker Noncompliance DAVY treated with BiPAP Post-menopausal Pulmonary embolism Restless leg syndrome Seasonal allergies Shortness of breath on exertion Syncope Thyroid disease Ureterolithiasis UTI (urinary tract infection) Vitamin B12 deficiency Vitamin D deficiency Wears glasses Home Medications citalopram 40 mg tablet 40 mg PO DAILY antidepressant/antianxiety 07/27/19 [History Last Taken 05/04/22] budesonide-formoterol HFA 160 mcg-4.5 mcg/actuation aerosol inhaler (Symbicort) 2 puff inhalation BID inhaler 04/02/20 [History Last Taken 05/04/22] ubrogepant 100 mg tablet (Ubrelvy) 100 mg PO DAILY migraines 04/02/20 [History Last Taken 05/04/22] rimegepant 75 mg disintegrating tablet (Nurtec ODT) 75 mg PO ONCE migraines 06/19/20 [History Last Taken 05/04/22] fluticasone fur. 100 mcg-umeclid 62.5 mcg-vilant 25 mcg inhalat.powder (Trelegy Ellipta) 1 ea inhalation DAILY COPD 08/14/20 [History Last Taken 05/04/22] gabapentin 100 mg capsule 100 mg PO TID neuropathy 09/30/20 [History Last Taken 05/04/22] galcanezumab-gnlm 120 mg/mL subcutaneous pen injector (Emgality Pen) 120 mg subcut QMONTH MIGRAINES 08/19/21 [History Last Taken 09/26/22] tizanidine 4 mg tablet 4 mg PO QHS PRN muscle relaxer 03/03/22 [History Last Taken 05/03/22] atogepant 60 mg tablet (Qulipta) 60 mg PO DAILY MIGRAINES 05/04/22 [History Last Taken 05/04/22] lorazepam 1 mg tablet 1 mg PO TID PRN Anxiety 05/04/22 [History Last Taken Unknown] promethazine 25 mg tablet 25 mg PO Q4H PRN nausea and vomiting #20 tabs 05/14/22 [Rx Last Taken Unknown] progesterone micronized 200 mg capsule 200 mg PO DAILY hormones 10/11/22 [History Last Taken Unknown] tramadol 50 mg tablet 50 mg PO TID pain 10/11/22 [History Last Taken Unknown] amlodipine 10 mg tablet 10 mg PO DAILY blood pressure #90 tabs 10/28/22 [Rx Last Taken Unknown] valsartan 320 mg tablet 160 mg (1/2 x 320 mg) PO BID BLOOD PRESSURE #90 tabs 10/28/22 [Rx Last Taken Unknown] albuterol sulfate 90 mcg/actuation breath activated powder inhaler (ProAir RespiClick) 2 inh inhalation 4X/DAY PRN Shortness Of Breath #1 ea 11/07/22 [Rx Last Taken Unknown] doxycycline monohydrate 100 mg capsule 100 mg PO BID #14 CAPSULES 11/12/22 [Rx Last Taken Unknown] levothyroxine 175 mcg tablet 175 mcg PO DAILY order as courtesy until pt sees PCP 11/25/22 #30 tabs 11/18/22 [Rx Last Taken Unknown] cefdinir 300 mg capsule 300 mg PO BID #14 caps 12/04/22 [Rx Last Taken Unknown] dicyclomine 10 mg capsule 20 mg (2 x 10 mg) PO Q6H PRN PRN abdominal pain #20 CAPSULES 12/20/22 [Rx Last Taken Unknown] albuterol sulfate 90 mcg/actuation aerosol inhaler 2 puff inhalation Q4H PRN shortness of breath or wheezing 12/25/22 [History Last Taken Unknown] atorvastatin 80 mg tablet 80 mg PO QHS #30 tabs 12/25/22 [Rx Last Taken Unknown] magnesium citrate (Citroma oral solution) 300 ml PO DAILY PRN constipation #296 mL 01/02/23 [Rx Last Taken Unknown] ondansetron 4 mg disintegrating tablet 4 mg PO Q8H PRN PRN Nausea #10 tabs 01/03/23 [Rx Last Taken Unknown] metoclopramide HCl 10 mg tablet (Reglan) 10 mg PO Q6H PRN nausea and vomiting #20 tabs 01/07/23 [Rx Last Taken Unknown] gabapentin 100 mg capsule 100 mg PO QHS PRN leg cramps #14 caps 01/19/23 [Rx Last Taken Unknown] levofloxacin 750 mg tablet 750 mg PO DAILY #6 tabs 02/08/23 [Rx Last Taken Unknown] Allergy/AdvReac Type Severity Reaction Status Date / Time hydrochlorothiazide AdvReac Intermediate Contributes Verified 02/10/23 04:38 to gout naproxen [From Naprosyn] AdvReac Intermediate Nausea Verified 02/10/23 04:38 aspirin AdvReac Nausea Verified 02/10/23 04:38 Family History Father , Age 72 Hypertension Mother CAD (coronary artery disease) Myocardial infarction, Onset Age: 55 Hypertension Sister CAD (coronary artery disease) Brother Cancer Surgical History History of History of cardiac catheterization History of carpal tunnel surgery of left wrist History of carpal tunnel surgery of right wrist History of left heart catheterization (11/11/20) history of uterine ablation Hx of cystoscopy Social History household members: none housing: apartment Smoking Status: Never smoker alcohol intake: never substance use type: does not use caffeine: No ROS ROS ED Constitutional Constitutional ED: Denies chills or fever(s) Eyes Eyes: Denies change in vision ENT ENT ED: Denies rhinorrhea or sore throat Cardiovascular Cardiovascular: Denies chest pain Respiratory/Chest Respiratory/Chest: Denies cough or dyspnea Gastrointestinal Gastrointestinal: Denies abdominal pain, nausea or vomiting Genitourinary Genitourinary ED: Reports dysuria Musculoskeletal Musculoskeletal: Reports back pain and neck pain; Denies arthralgias or myalgias Integumentary Reports other Details: Laceration/wound to the left mosque Neurologic Neurologic: Reports headache(s); Denies paresthesias or weakness Psychiatric Psychiatric: Reports anxiety Hematologic/Lymphatic Hematologic/Lymphatic: Denies easy bleeding or easy bruising EXAM Physical Exam Const Vital Signs: 02/10/23 04:34 02/10/23 05:47 02/10/23 08:18 Temperature 97.6 F L Temperature Source Temporal Pulse Rate 88 66 Respiratory Rate 14 16 Blood Pressure 151/91 H Blood Pressure Mean 111 Pulse Ox 99 95 Oxygen Delivery Method Room Air Room Air Positive well nourished, well developed and obese General Appearance ED: well developed and NAD Nutritional Appearance: obese HEENT Reports TM's clear and moist mucous membranes trauma Tympanic Membrane ED: Yes TM's clear Eyes PERRL and EOMs intact bilaterally Neck supple General: Negative for tenderness Chest Wall inspection of chest normal and palpation of chest normal Resp normal respiratory effort and clear to auscultation bilaterally Cardio regular rate, regular rhythm and no murmurs GI normal to inspection, nondistended, normoactive bowel sounds and non-tender Back/Spine Cervical Spine: Negative for cervical spine tenderness Thoracic Spine / Upper Back: Negative for thoracic spinal tenderness or paraspinal muscle tenderness Lumbar Spine / Lower Back: Negative for lumbar spinal tenderness Extremity normal to inspection Extremity Narrative: No deformity of the lower extremities. No pain with range of motion of the hips. General Extremety ED: Negative for tenderness Neuro oriented x3 Sensorium / Orientation: alert; Negative for orientation impaired Motor Exam: general weakness Psych mental status grossly normal Skin Skin Narrative: Patient has a gaping horizontal 12 cm full-thickness laceration with exposure of underlying adipose tissue to the left mosque just above the ear and extending posteriorly. No active bleeding at this time. MDM MDM MDM Narrative Medical decision making narrative: Evaluated for fall, generalized weakness as well as head injury. She has a large scalp laceration. CT of the brain as well as cervical spine is obtained to rule out acute intracranial hemorrhage, skull fracture or cervical spine fracture. This is negative for acute process. See procedure note for laceration repair. Patient is currently on Levaquin for urinary tract infection and urinalysis still has 100 leukocyte esterase but is improving. There were no bacteria seen. CBC shows a mild leukocytosis 11.9 which is nonspecific. No acute anemia appreciated. CMP is at her baseline. Chest x-ray viewed by myself as well as radiology does not show any acute process. See procedure note for laceration repair. Patient tells me that she does not feel comfortable going home. She feels weak. She is amenable for evaluation for PT/OT and possible rehab. Case is discussed with Dr. Mackay to the medical surgical floor. The exact cause of patient's fall is not clear and differential still includes mechanical fall, near syncope and cardiac arrhythmia as well as debility. Lab Data Attestation: I reviewed the patient's lab results. Labs: Laboratory Results - last 24 hr 02/10/23 02/10/23 05:08 06:40 WBC 11.9 H RBC 3.64 L Hgb 12.0 Hct 37.7 MCV 103.6 H MCH 33.0 H MCHC 31.8 L RDW Std Deviation 63.0 H RDW Coeff of Alfredo 16.4 H Plt Count 243 MPV 11.1 Immature Gran % (Auto) 1.300 H Neut % (Auto) 73.6 H Lymph % (Auto) 12.7 L [place] % (Auto) 6.5 Eos % (Auto) 5.1 H Baso % (Auto) 0.8 Absolute Neuts (auto) 8.8 H Absolute Lymphs (auto) 1.51 Nucleated RBC % 0 Sodium 138 Potassium 4.2 Chloride 106 Carbon Dioxide 23.0 Anion Gap 9 BUN 11 Creatinine 1.37 H Estim Creat Clear Calc 41.48 Est GFR (MDRD) Af Amer 52 L Est GFR (MDRD) Non-Af 43 L BUN/Creatinine Ratio 8.0 L Glucose 136 H Calcium 9.1 Total Bilirubin 0.40 AST 41 H ALT 26 Alkaline Phosphatase 122 H Total Protein 7.9 Albumin 3.3 Globulin 4.6 H Albumin/Globulin Ratio 0.7 L Urine Color Yellow Urine Clarity Clear Urine pH 5.0 Ur Specific [place] 1.015 Urine Protein 15 H Urine Glucose (UA) Normal Urine Ketones Negative Urine Occult Blood 50 H Urine Nitrite Negative Urine Bilirubin Negative Urine Urobilinogen Normal Ur Leukocyte Esterase 100 H Urine RBC 0 SEEN Urine WBC 0-5 SEEN Ur Squamous Epith Cells 0 SEEN Urine Bacteria 0 SEEN Urine Mucus 0 SEEN Radiography Diagnostic Testing: Clinical Impression(s) from Imaging Studies Brain CT 02/10/23 04:45 IMPRESSION: undefined Cervical Spine CT 02/10/23 04:45 IMPRESSION: undefined Chest X-Ray 02/10/23 06:00 IMPRESSION: No acute pulmonary disease. Electronically Signed: Wilfrido Santana MD at 7:00 EST , Rhythm Strip Rhythm Strip: Sinus Rhythm Rate: 77 Ectopy: None EKG Initial EKG: Attestation: I personally reviewed and interpreted this EKG as follows: Interpretation: Sinus Rhythm Comments: Normal sinus rhythm at a rate of 77 bpm Left axis deviation Normal QRS and MD interval, slightly prolonged QTc at 506 Nonspecific T wave changes Low amplitude Compared to prior EKG no significant changes except for longer QTc Management Discussion w/another healthcare provider: Hospitalist Procedures Lacerations scalp: Length: 4.72 in Depth: Sub Q Shape: Flap Prep: Chlorhexadine Laceration repair: Lidocaine with epi, Local, Skin sutures and Subcutaneous sutures Irrigated (ml): 500 Suture Information: Vicryl, Ethilon and 4-0 Comment: 5 deep absorbable Vicryl simple interrupted sutures placed for better wound approximation Running stitch using 4-0 Ethilon placed superficially along the length of the entire wound. There is good wound edge approximation. Patient tolerated well. No further bleeding. Discharge Plan Triage Chief Complaint: Fall ED Provider: Candy Arreguin Dx/Rx/DC Orders Clinical Impression: Fall, Syncope, Scalp hematoma, Closed head injury, Complex laceration of scalp Primary Care Provider: Halina Johnson Disposition Disposition: Acute Care [facility]
--- NOTE | 2023-02-10 04:53 | EKG12_ITS ---
Test Reason : DYSRHYTHMIA Blood Pressure : / mmHG Vent. Rate : 077 BPM Atrial Rate : 077 BPM P-R Int : 142 ms QRS Dur : 082 ms QT Int : 448 ms P-R-T Axes : 024 -11 -33 degrees QTc Int : 506 ms Normal sinus rhythm Nonspecific ST and T wave abnormality Abnormal ECG Confirmed by CHAR GONZALEZ, RADHA ([id number]), online editor ZANDER MAYER ([id number]) on 02/14/2023 1:58:00 P M Referred By: Confirmed By:TODD PARDO MD
[2023-02-10 05:17] LABS: Bacteria 0 SEEN /hpf (None Seen); Mucous, Urine 0 SEEN /hpf (<or=2+); Red Blood Cells-Urine 0 SEEN /hpf (0-5); Squamous Epithelial Cells - UA 0 SEEN /hpf (5-10)
[2023-02-10 05:33] LABS: Color, Urine Yellow (Yellow); Glucose, Dipstick Normal (Normal); Ketone-Dipstick Negative (Negative); Leukocyte Esterase-Dipstick 100 /ul (Negative); Nitrite-Dipstick Negative (Negative); Occult Blood-Urine 50 /ul (Negative); Protein-Dipstick 15 mg/dl (Negative); Specific Gravity, Urine 1.015 (1.002-1.030); Urine Bilirubin Dipstick Negative (Negative); Urine Clarity Clear (Clear); Urine Urobilinogen Normal (Normal)
--- NOTE | 2023-02-10 06:00 | RAD_ITS ---
INDICATION: syncope EXAMINATION: Frontal view of the chest COMPARISON: Chest x-ray February 05, 2023. FINDINGS: Frontal view of the chest was obtained. The cardiac silhouette is borderline enlarged. No confluent airspace disease. No pneumothorax. No acute fracture identified. RAD/Chest 1 View (Portable) IMPRESSION: No acute pulmonary disease. Electronically Signed: Wilfrido Santana MD at 7:00 EST ,
[2023-02-10 06:07] LABS: White Blood Cells 0-5 SEEN /hpf (0-5)
[2023-02-10] MEDS: Lidocaine 1% /Epi 1:100 (20ml) 20 ML Vial INFILT (06:14)
[2023-02-10] MEDS: Lidocaine/Epi/Tetracaine 50 ML 1 APPLIC TOPICAL (06:14)
[2023-02-10] MEDS: Acetaminophen 325 MG Tablet 650 MG PO ×2 (06:14→17:10)
[2023-02-10 07:19] LABS: Absolute Lymphocyte Count 1.51 X10^3/uL (0.83-4.51); Absolute Neutrophil Count 8.8 X10^3/uL (2.0-7.7); Basophil# 0.09 X10^3/uL; Basophil% 0.8 % (0-1); Eosinophil# 0.61 X10^3/uL; Eosinophils% 5.1 % (0-5); Hematocrit 37.7 % (37-47); Lymphocyte # 1.51 X10^3/ul (0.83-4.51); Lymphocyte % 12.7 % (19-41); Mean Corp Hgb Conc 31.8 g/dL (32-36); Mean Corpuscular Volume 103.6 fL (81-99); Mean Platelet Vol. 11.1 fl (6.2-12.0); Monocyte# 0.77 X10^3/uL; Monocyte% 6.5 % (0-10); NRBC Flagged by Analyzer 0 % (0-5); Neutrophil # 8.77 X10^3/uL (2.7-7.7); Neutrophil % 73.6 % (47-70); Platelet Count 243 K/mm3 (150-450); RBC Distribution Width CV 16.4 % (11.6-14.6); Red Blood Count 3.64 M/mm3 (4.2-5.4); White Blood Count 11.9 K/mm3 (4.4-11.0)
[2023-02-10 07:23] LABS: ALB/GLOB Ratio 0.7 RATIO (0.9-2.4); AST(SGOT) 41 U/L (15-37); Alanine Aminotransfer ALT/SGPT 26 U/L (13-56); Albumin, Serum 3.3 g/dL (3.2-5.0); Alkaline Phosphatase 122 U/L (45-117); Anion Gap 9 (5-15); BUN 11 mg/dL (7-18); Calcium,Total 9.1 mg/dL (8.5-10.1); Chloride 106 mmol/L (98-107); Creatinine, Serum 1.37 mg/dL (0.55-1.02); EST Glomerular Filtration Rate 43 mL/min (>60); Est Glom Filt Rate - Afr Amer 52 mL/min (>60); Estimated Creatinine Clearance 41.48 ml/min; Globulin 4.6 g/dL (2.2-4.2); Glucose 136 mg/dL (74-106); Potassium 4.2 mmol/L (3.5-5.1); Protein, Total 7.9 g/dL (6.4-8.2); Sodium Level 138 mmol/L (136-145)
[2023-02-10 08:18] VITALS: PULSE 66; RESP 16; O2SAT 95
--- NOTE | 2023-02-10 08:52 | HP.PCM.HOS_ITS ---
HPI - General General Date of Admission: 02/10/23 Date of Service: 02/10/23 Chief Complaint: mechanical fall HPI Narrative COURTNEY CARMEN, is a 52 F with a PMH as outlined who presents via the ED on 02/10/2023 with a complaint of mechanical fall. She got up to go to the bathroom and fell. She doesnt think she lost consciousness, had any prodromal dizziness or lightheadedness. She hit her head. She had been recently diagnosed with UTI on outpatient basis and was on levaquin, which she had been compliant with. She complained of headache on admission; she denied any nausea, vomiting or abdominal pain, shortness of breath or any other symptoms. REview of systems was otherwise negative. Vitals in the ED were temp of 97.6F, BP of 151/91, RR of 16 and she was saturating at 95% on room air. CBC showed wbc of 11.9, hb of 12 and platelets of 243. Chemistry was remarkable for Cr of 1.37 but was otherwise unremarkable. Urinalysis showed no evidence of UTI. CT of the cervical spine showed no evidence of fracture, and CT brain showed scalp hematoma which was sutured in the ED. Patient felt too weak to go home and so she is being admitted to be managed for debility due to mechanical fall, with scalp hematoma. REPLACED BY [facility] Medical History Abnormal glucose Anemia Anxiety Arthritis Asthma BiPAP (biphasic positive airway pressure) dependence Cardiac murmur Cardiology follow-up encounter Celiac disease Chest pain Cholelithiasis Chronic kidney disease Constipation COPD (chronic obstructive pulmonary disease) Depression Diabetes mellitus Dietary restriction Difficulty swallowing Dyspnea on exertion GERD (gastroesophageal reflux disease) Gout History of chronic back pain History of chronic kidney disease History of echocardiogram History of edema History of pain when walking History of stress test Hydronephrosis Hyperlipidemia Hypersomnia Hypertension Hypothyroidism Injury of head and neck Iron deficiency anemia Kidney stones Leg cramps Microcytic anemia Migraine headache Morbid obesity with BMI of 40.0-44.9, adult Non-smoker Noncompliance DAVY treated with BiPAP Post-menopausal Pulmonary embolism Restless leg syndrome Seasonal allergies Shortness of breath on exertion Syncope Thyroid disease Ureterolithiasis UTI (urinary tract infection) Vitamin B12 deficiency Vitamin D deficiency Wears glasses Home Medications citalopram 40 mg tablet 40 mg PO DAILY DEPRESSION/ANXIETY 07/27/19 [History Last Taken 02/10/23] budesonide-formoterol HFA 160 mcg-4.5 mcg/actuation aerosol inhaler (Symbicort) 2 puff inhalation BID COPD 04/02/20 [History Last Taken 02/10/23] rimegepant 75 mg disintegrating tablet (Nurtec ODT) 75 mg PO ONCE PRN MIGRAINES 06/19/20 [History Last Taken 05/04/22] fluticasone fur. 100 mcg-umeclid 62.5 mcg-vilant 25 mcg inhalat.powder (Trelegy Ellipta) 1 ea inhalation DAILY COPD 08/14/20 [History Last Taken 02/10/23] galcanezumab-gnlm 120 mg/mL subcutaneous pen injector (Emgality Pen) 120 mg subcut QMONTH MIGRAINES 08/19/21 [History Last Taken 01/06/23] lorazepam 1 mg tablet 1 mg PO BID PRN ANXIETY 05/04/22 [History Last Taken 02/08/23] progesterone micronized 200 mg capsule 400 mg PO QHS HORMONES 10/11/22 [History Last Taken 02/09/23] tramadol 50 mg tablet 50 mg PO TID PAIN 10/11/22 [History Last Taken 02/10/23] amlodipine 10 mg tablet 10 mg PO DAILY BLOOD PRESSURE #90 tabs 10/28/22 [Rx Last Taken 02/10/23] valsartan 320 mg tablet 160 mg (1/2 x 320 mg) PO BID BLOOD PRESSURE #90 tabs 10/28/22 [Rx Last Taken 02/10/23] albuterol sulfate 90 mcg/actuation breath activated powder inhaler (ProAir RespiClick) 2 inh inhalation 4X/DAY PRN SHORTNESS OF BREATH #1 ea 11/07/22 [Rx Last Taken Unknown] metoclopramide HCl 10 mg tablet (Reglan) 10 mg PO Q6H PRN NAUSEA AND VOMTING #20 tabs 01/07/23 [Rx Last Taken Unknown] gabapentin 100 mg capsule 100 mg PO QHS PRN LEG CRAMPS #14 caps 01/19/23 [Rx Last Taken Unknown] levofloxacin 750 mg tablet 750 mg PO DAILY #6 tabs 02/08/23 [Rx Last Taken 02/09/23] atorvastatin 80 mg tablet 80 mg PO DAILY CHOLESTEROL 02/10/23 [History Last Taken 02/10/23] cyclobenzaprine 5 mg tablet 5 mg PO Q8H PRN MUSCLE SPASMS 02/10/23 [History Last Taken 02/08/23] gabapentin 300 mg capsule 300 mg PO TID NERVE PAIN 02/10/23 [History Last Taken 02/10/23] levothyroxine 175 mcg tablet 175 mcg PO DAILY THYROID 02/10/23 [History Last Taken 02/10/23] magnesium oxide 400 mg (241.3 mg magnesium) tablet 400 mg PO DAILY SUPPLEMENT [History Last Taken 02/09/23] potassium chloride 10 mEq capsule,extended release 10 meq PO DAILY SUPPLEMENT 02/10/23 [History Last Taken 02/10/23] Allergy/AdvReac Type Severity Reaction Status Date / Time hydrochlorothiazide AdvReac Intermediate Contributes Verified 02/10/23 04:38 to gout naproxen [From Naprosyn] AdvReac Intermediate Nausea Verified 02/10/23 04:38 aspirin AdvReac Nausea Verified 02/10/23 04:38 Family History Father , Age 72 Hypertension Mother CAD (coronary artery disease) Myocardial infarction, Onset Age: 55 Hypertension Sister CAD (coronary artery disease) Brother Cancer Surgical History History of History of cardiac catheterization History of carpal tunnel surgery of left wrist History of carpal tunnel surgery of right wrist History of left heart catheterization (11/11/20) history of uterine ablation Hx of cystoscopy Social History household members: none housing: apartment Smoking Status: Never smoker alcohol intake: never substance use type: does not use caffeine: No ROS Review of Systems ROS Unobtainable: Denies due to encephalopathy Constitutional Constitutional: Reports fatigue, malaise and weakness; Denies anorexia, change in weight, chills or fever(s) Eyes Eyes: Denies change in eye color ENT HEENT: Denies dysphagia or hearing loss Cardiovascular Cardiovascular: Denies chest pain, dyspnea on exertion, edema, lightheadedness, orthopnea, palpitations, rapid heart rate or syncope Respiratory/Chest Respiratory/Chest: Denies cough, dyspnea, productive cough, shortness of breath at rest, shortness of breath with exertion or wheezing Gastrointestinal Gastrointestinal: Denies abdominal pain, coffee ground emesis, constipation, diarrhea, dyspepsia, nausea or vomiting Genitourinary Genitourinary: Denies burning urination or dysuria Musculoskeletal Musculoskeletal: Denies arthralgias Neurologic Neurologic: Denies confusion, dizziness, focal weakness or headache(s) Endocrine Endocrinology: Denies change in body appearance Hematologic/Lymphatic Hematologic/Lymphatic: Denies anemia Vital Signs Vital Signs Vital Signs: 02/10/23 04:34 02/10/23 05:47 02/10/23 08:18 Temperature 97.6 F L Temperature Source Temporal Pulse Rate 88 66 Respiratory Rate 14 16 Blood Pressure 151/91 H Blood Pressure Mean 111 Pulse Ox 99 95 Oxygen Delivery Method Room Air Room Air Weight Weight: 298 lb 8.094 oz Body Mass Index (BMI) 51.2 Physical Exam Const alert Constitutional Narrative: in mild distress due to pain, super morbid obesity General Appearance: cooperative HEENT normocephalic, hearing grossly normal bilaterally and moist oral mucous membranes HEENT Narrative: has a laceration on the left side of her head which had been sutured and was caked in blood.Hair matted with blood Mouth: oral and palatal mucosa normal Eyes PERRL and EOMs intact bilaterally Neck no lymphadenopathy and supple Resp normal respiratory effort, no retractions, no use of accessory muscles and clear to auscultation bilaterally Cardio regular rate, regular rhythm, S1 normal heart sound, S2 normal heart sound and no murmurs GI normal to inspection, nondistended, normoactive bowel sounds, soft to palpation and non-tender Extremity normal to inspection, full ROM and no clubbing, cyanosis or edema Neuro oriented x3, CN's II-XII intact bilaterally, moves all extremities and no focal motor deficits Sensorium / Orientation: awake and alert Motor Exam: strength 5/5 throughout Psych affect normal Results Lab / Micro Data 02/11/23 10:53 02/11/23 06:25 Labs: Laboratory Results - last 24 hr 02/10/23 05:08: Urine Color Yellow, Urine Clarity Clear, Urine pH 5.0, Ur Specific [place] 1.015, Urine Protein 15 H, Urine Glucose (UA) Normal, Urine Ketones Negative, Urine Occult Blood 50 H, Urine Nitrite Negative, Urine Bilirubin Negative, Urine Urobilinogen Normal, Ur Leukocyte Esterase 100 H, Urine RBC 0 SEEN, Urine WBC 0-5 SEEN, Ur Squamous Epith Cells 0 SEEN, Urine Bacteria 0 SEEN, Urine Mucus 0 SEEN 02/10/23 06:40: WBC 11.9 H, RBC 3.64 L, Hgb 12.0, Hct 37.7, MCV 103.6 H, MCH 33.0 H, MCHC 31.8 L, RDW Std Deviation 63.0 H, RDW Coeff of Alfredo 16.4 H, Plt Count 243, MPV 11.1, Immature Gran % (Auto) 1.300 H, Neut % (Auto) 73.6 H, Lymph % (Auto) 12.7 L, [place] % (Auto) 6.5, Eos % (Auto) 5.1 H, Baso % (Auto) 0.8, Absolute Neuts (auto) 8.8 H, Absolute Lymphs (auto) 1.51, Nucleated RBC % 0, Sodium 138, Potassium 4.2, Chloride 106, Carbon Dioxide 23.0, Anion Gap 9, BUN 11, Creatinine 1.37 H, Estim Creat Clear Calc 41.48, Est GFR (MDRD) Af Amer 52 L , Est GFR (MDRD) Non-Af 43 L, BUN/Creatinine Ratio 8.0 L, Glucose 136 H, Calcium 9.1, Total Bilirubin 0.40, AST 41 H, ALT 26, Alkaline Phosphatase 122 H, Total Protein 7.9, Albumin 3.3, Globulin 4.6 H, Albumin/Globulin Ratio 0.7 L Rhythm Strip Rhythm Strip: Sinus Rhythm Rate: 77 Ectopy: None Imagaing Radiology Impression Brain CT 02/10/23 04:45 IMPRESSION: undefined Cervical Spine CT 02/10/23 04:45 IMPRESSION: undefined Chest X-Ray 02/10/23 06:00 IMPRESSION: No acute pulmonary disease. Electronically Signed: Wilfrido Santana MD at 7:00 EST , Assessment & Plan Assessment/Plan (1) Fall: (2) Scalp hematoma: PLAN: Plan #Debility due to mechanical fall with resultant scalp hematoma * admit to med surg * fell whilst going to the bathroom. Cannot say if she was dizzy or passed out * sustained a large scalp hematoma which was sutured; not on anticoagulants * cervical spine ct showed no fracture and CT of the brain showed the large scalp hematoma * PT/OT consult * fall precautions * hydrate gently with iVF * PO tylenol, PO oxycodone and IV morphine prn for pain * #UTI * was diagnosed with UTI in the ED 2 days prior to admission. * on levaquin; to finish course of levaquin * #Hypertension; on valsartan and amlodipine #Hyperlipidemia; on statin #Type 2 diabtres mellitus #GERD: on PPI #Hypothyroidism; on synthroid #COPD: not in exacerbation. Breathing treatment with bronchodilators. #Depression: on citalopram #History of migraines. On rimegapant as needed and Qulipta #Super morbid obesity: BMI is 51.2. Complicates acute care, expected recovery and prognosis DVT prophylaxis: SCDs. No anticoagulants due to large scalp hematoma Code status: Full code * Patient counseled extensively about different types of CODE STATUS including full code, DNR CCA and DNR CCA. Patient elects to be full code. Total fegx-om-sume time 16 minutes. Charges/Coding Visit Charges Inpatient E&M: 24950 Init Hosp L3 Procedures Hospitalists Procedures: 07001 Advncd Care Plan 30 Min
[2023-02-10 11:51] VITALS: BMI 50.2
[2023-02-10] MEDS: 0.9% Normal Saline (1000mL) 1,000 ML 125 ML IV (12:05)
[2023-02-10] MEDS: oxyCODONE 5 MG Tablet PO ×2 (12:25→22:12)
[2023-02-10 12:56] LABS: Bedside Glucose 105 mg/dL (74-106)
[2023-02-10 16:25] VITALS: BP 127/84; PULSE 69; RESP 18; TEMP 36.6; O2SAT 98
[2023-02-10] MEDS: Morphine 2 MG/ML Syringe IV (16:26)
[2023-02-10 17:04] LABS: Bedside Glucose 116 mg/dL (74-106)
[2023-02-10] MEDS: Ondansetron 4 MG/2 ML Vial IV (17:10)
--- NOTE | 2023-02-10 18:14 | NURSING ---
Multiple IV attempts by 3 different RN's. IV SL at this time d/t constantly beeping from being near her wrist. Will make shift engineer aware to see if we can get better access.
[2023-02-10 20:22] VITALS: PULSE 74; RESP 18
[2023-02-10] MEDS: Budesonide Respules 0.5 MG/2 ML AMPUL.NEB. INHALATION (20:22)
[2023-02-10] MEDS: Ipratropium/Albuterol Sulfate 3 ML AMPUL.NEB INHALATION (20:22)
[2023-02-10 20:35] VITALS: O2SAT 95
[2023-02-10 21:34] VITALS: BP 114/77; PULSE 71; RESP 18; TEMP 36.7; O2SAT 100
[2023-02-10] MEDS: Gabapentin 300 MG Capsule PO (22:12)
[2023-02-10] MEDS: Losartan Potassium 50 MG Tablet PO (22:13)
[2023-02-10 22:17] LABS: Bedside Glucose 94 mg/dL (74-106)
[2023-02-11] VITALS (10 sets, daily range): BP systolic 104–144; BP diastolic 65–90; PULSE 83–96; RESP 15–20; TEMP 36.4–36.7; O2SAT 93–99
[2023-02-11] MEDS: Acetaminophen 325 MG Tablet 650 MG PO ×4 (00:40→22:06)
[2023-02-11] MEDS: LORazepam 1 MG Tablet PO ×2 (00:41→22:07)
[2023-02-11] MEDS: 0.9% Saline Lock 10 ML Syringe IV (00:41)
--- NOTE | 2023-02-11 04:17 | NURSING ---
Patient requesting pain medication; however, falling asleep when talking. No pain meds given at this time.
[2023-02-11] MEDS: Levothyroxine 175 MCG Tablet PO (06:33)
[2023-02-11] MEDS: Gabapentin 300 MG Capsule PO ×3 (06:34→22:17)
[2023-02-11 07:00] LABS: Bedside Glucose 113 mg/dL (74-106)
[2023-02-11 07:01] LABS: Anion Gap 9 (5-15); BUN 9 mg/dL (7-18); BUN/Creat Ratio 7.4 RATIO (10-20); Calcium,Total 9.5 mg/dL (8.5-10.1); Chloride 108 mmol/L (98-107); Creatinine, Serum 1.22 mg/dL (0.55-1.02); EST Glomerular Filtration Rate 49 mL/min (>60); Est Glom Filt Rate - Afr Amer 59 mL/min (>60); Estimated Creatinine Clearance 46.58 ml/min; Glucose 123 mg/dL (74-106); Sodium Level 143 mmol/L (136-145)
[2023-02-11] MEDS: Budesonide Respules 0.5 MG/2 ML AMPUL.NEB. INHALATION ×2 (07:55→19:32)
[2023-02-11] MEDS: Ipratropium/Albuterol Sulfate 3 ML AMPUL.NEB INHALATION ×3 (07:55→19:32)
[2023-02-11] MEDS: Citalopram 40 MG TABLET PO (09:09)
[2023-02-11] MEDS: levoFLOXacin 750 MG Tablet PO (09:09)
[2023-02-11] MEDS: Potassium Chloride Oral Tablet 10 MEQ PO (09:09)
[2023-02-11] MEDS: oxyCODONE 5 MG Tablet PO ×3 (09:09→22:07)
[2023-02-11] MEDS: Losartan Potassium 50 MG Tablet PO ×2 (09:09→22:06)
[2023-02-11] MEDS: amLODIPine 10 MG Tablet PO (09:10)
[2023-02-11] MEDS: Magnesium Chloride 64 MG Delay Rel.Tablet 128 MG PO (09:10)
[2023-02-11] MEDS: Atorvastatin Calcium 80 MG Tablet PO (09:11)
--- NOTE | 2023-02-11 09:32 | NURSING ---
pt unable to keep her eyes open but requesting morphine for her head. oxycodone given. dr foster in to see pt
[2023-02-11 09:37] LABS: Partial Thromboplast Time 20.5 Seconds (24.1-36.2); Prothrombin Time (Protime)PT. 12.9 SECONDS (11.7-14.9)
--- NOTE | 2023-02-11 10:53 | CASEMGMT ---
Addendum entered by Juana Ramirez 02/11/23 12:20: Updated hospitalist on pt plan. She states pt will dc in the morning. INEZ SHORE into pt room to make aware, pt is agreeable to plan. Green sheet on chart for FWW. Original Note: INEZ SHORE Assessment: Face to Face with pt for initial transition planning/care coordination assessment. INEZ SHORE introduced self and role at [facility], pt voices understanding and consents to assessment. Pt is A&O x4 and answers all questions appropriately at this time. Pt sitting up in chair in no distress. Lab just left the room. Care providers, pharmacy, and demographics verified/updated. Admitting Dx: debility, mechanical fall PCP:Alex Specialists:Luisana, pain mgmt; savana Bowden [facility]acy: [facility] [place] [facility] [place]: [place] LNOK: Elian Gray, - pt states they are ; Nadeen Johnson, mother Living Arrangements: Pt lives alone in a single story apt with no steps to enter. Pt reports she needs assistance from her mother for bathing and is able to dress self. Pt mother does laundry, helps with groceries and pt gets own meals or orders out. Pt denies concerns at home. Transportation: Pt has not driven since September, pt mother provides transportation for pt. DME:shi ayala HHC/SNF: [facility] in the past, denies hx of SNF. Pt states no concerns with going home at time of dc. Discussed having therapy at home. Pt states she does not feel this is needed. She states she is not sure what happened as to why she fell. Pt does not have a walker and is interested in one. Provided pt with a verbal local in network of DME providers, pt chose [employer]. Pt states no further concerns/needs. CM to follow. Advised pt to ask CM if any further question/concerns/needs arise, voices understanding. Pt Goal:Home with FWW Plan: Home with FWW
[2023-02-11 11:00] LABS: Absolute Neutrophil Count 7.9 X10^3/uL (2.0-7.7); Basophil% 0.9 % (0-1); Eosinophil# 0.65 X10^3/uL; Eosinophils% 5.9 % (0-5); Hematocrit 36.1 % (37-47); Hemoglobin 11.4 g/dL (12.0-15.0); Lymphocyte % 13.6 % (19-41); Mean Corp Hgb Conc 31.6 g/dL (32-36); Mean Corpuscular Hgb 31.9 pg (27.0-32.0); Mean Corpuscular Volume 101.1 fL (81-99); Mean Platelet Vol. 10.7 fl (6.2-12.0); Monocyte# 0.85 X10^3/uL; Monocyte% 7.7 % (0-10); NRBC Flagged by Analyzer 0 % (0-5); Neutrophil # 7.86 X10^3/uL (2.7-7.7); POSITIVE COUNT YES; RBC Distribution Width CV 16.3 % (11.6-14.6); RBC Distribution Width SD 60.7 fl (35.1-43.9); Red Blood Count 3.57 M/mm3 (4.2-5.4); White Blood Count 11.1 K/mm3 (4.4-11.0)
[2023-02-11 11:18] LABS: Differential Indicated SCAN CRITERIA MET
[2023-02-11 11:19] LABS: Platelet Estimate ADEQUATE (ADEQ)
[2023-02-11 11:46] LABS: Bedside Glucose 130 mg/dL (74-106)
--- NOTE | 2023-02-11 11:50 | PN_ITS ---
Subjective Subjective Patient seen and examined. She complains of feeling weak and tired today. She had no other complaints and had an uneventful night. Review of systems otherwise negative. Objective Data Objective Data Vital Signs: Vital Signs Temp Pulse Resp BP Pulse Ox O2 Del Method O2 Flow Rate 98.1 F 89 16 144/90 H 96 Nasal Cannula 2 02/11/23 09:00 02/11/23 09:00 02/11/23 09:00 02/11/23 09:00 02/11/23 10:08 02/11/23 10:00 02/11/23 10:08 Oxygen Flow Rate (L/min) 2 Oxygen Delivery Method Nasal Cannula Weight: 292 lb 12.382 oz Body Mass Index (BMI) 50.2 Intake & Output: Intake and Output for Last 24 Hours 02/09/23 02/10/23 02/11/23 23:59 23:59 23:59 Intake Total 777.08 / 777.08 445.83 / 445.83 Balance 777.08 / 777.08 445.83 / 445.83 Lab / Micro Data 02/11/23 10:53 02/11/23 06:25 Labs: Laboratory Results - last 24 hr 02/10/23 12:34: POC Glucose 105 02/10/23 16:28: POC Glucose 116 H 02/10/23 21:30: POC Glucose 94 02/11/23 06:25: Sodium 143, Potassium 4.0, Chloride 108 H, Carbon Dioxide 26.0, Anion Gap 9, BUN 9, Creatinine 1.22 H, Estim Creat Clear Calc 46.58, Est GFR (MDRD) Af Amer 59 L, Est GFR (MDRD) Non-Af 49 L, BUN/Creatinine Ratio 7.4 L, Glucose 123 H, Calcium 9.5 02/11/23 06:30: POC Glucose 113 H 02/11/23 09:10: WBC Cancelled, Corrected WBC Cancelled, RBC Cancelled, Hgb Cancelled, Hct Cancelled, MCV Cancelled, MCH Cancelled, MCHC Cancelled, RDW Std Deviation Cancelled, RDW Coeff of Alfredo Cancelled, Plt Count Cancelled, MPV Cancelled, Immature Gran % (Auto) Cancelled, Neut % (Auto) Cancelled, Lymph % (Auto) Cancelled, [place] % (Auto) Cancelled, Eos % (Auto) Cancelled, Baso % (Auto) Cancelled, Absolute Neuts (auto) Cancelled, Absolute Lymphs (auto) Cancelled, Total Counted Cancelled, Neutrophils % (Manual) Cancelled, Band Neutrophils % Cancelled, Lymphocytes % (Manual) Cancelled, Monocytes % (Manual) Cancelled, Eosinophils % (Manual) Cancelled, Basophils % (Manual) Cancelled, Metamyelocytes % Cancelled, Myelocytes % Cancelled, Promyelocytes % Cancelled, Blast Cells % Cancelled, Plasma Cell % (Manual) Cancelled, Other Cells % Cancelled, Nucleated RBC % Cancelled, Nucleated RBCs/100 WBC Cancelled, Differential Comment Cancelled, Diff Path Review Cancelled, Hypersegmented Neuts Cancelled, Atypical Lymphocytes Cancelled, Reactive Lymphocytes Cancelled, Smudge Cells Cancelled, Toxic Granulation Cancelled, Toxic Vacuolation Cancelled, Dohle Bodies Cancelled, Raisa Rods Cancelled, Platelet Estimate Cancelled, Plt Morphology Comment Cancelled, RBC Morphology Cancelled 02/11/23 09:10: RBC Morphology Cancelled, Polychromasia Cancelled, Hypochromasia Cancelled, Poikilocytosis Cancelled, Basophilic Stippling Cancelled, Anisocytosis Cancelled, Microcytosis Cancelled, Macrocytosis Cancelled, Spherocytes Cancelled, Sickle Cells Cancelled, Target Cells Cancelled, Tear Drop Cells Cancelled, Ovalocytes Cancelled, Stomatocytes Cancelled, [place] Bodies Cancelled, [place] Cells Cancelled, Bite Cells Cancelled, Crenated Cell Cancelled, Acanthocytes (Spur) Cancelled, Rouleaux Cancelled, Schistocytes Cancelled, PT 12.9, INR 1.0, APTT 20.5 L 02/11/23 10:53: WBC 11.1 H, RBC 3.57 L, Hgb 11.4 L, Hct 36.1 L, MCV 101.1 H, MCH 31.9, MCHC 31.6 L, RDW Std Deviation 60.7 H, RDW Coeff of Alfredo 16.3 H, Plt Count , MPV 10.7, Immature Gran % (Auto) 0.900, Neut % (Auto) 71.0 H, Lymph % (Auto) 13.6 L, [place] % (Auto) 7.7, Eos % (Auto) 5.9 H, Baso % (Auto) 0.9, Absolute Neuts (auto) 7.9 H, Absolute Lymphs (auto) 1.50, Nucleated RBC % 0, Platelet Estimate ADEQUATE 02/11/23 11:25: POC Glucose 130 H Rhythm Strip Rhythm Strip: Sinus Rhythm Rate: 77 Ectopy: None Physical Exam Const alert and oriented x3 Orientation / Consciousness: lethargic HEENT normocephalic, hearing grossly normal bilaterally and moist oral mucous membranes HEENT Narrative: Has a sutured laceration on the back of the scalp from mechanical fall. Eyes PERRL and EOMs intact bilaterally Neck no lymphadenopathy and supple Resp normal respiratory effort, normal air movement, no retractions, no use of accessory muscles and clear to auscultation bilaterally Cardio regular rate, regular rhythm, S1 normal heart sound, S2 normal heart sound and no murmurs GI normal to inspection, nondistended, normoactive bowel sounds, soft to palpation and non-tender Extremity normal to inspection, full ROM, normal capillary refill and no clubbing, cyanosis or edema General Extremity: no tenderness to palpation of joints or extremities Skin General Skin Exam: no breakdown Neuro oriented x3, CN's II-XII intact bilaterally, moves all extremities and no focal motor deficits Sensorium / Orientation: awake Motor Exam: strength 5/5 throughout Psych Psych Narrative: lethargic Assessment & Plan Assessment/Plan (1) Fall: (2) Scalp hematoma: PLAN: Plan #Debility due to mechanical fall with resultant scalp hematoma * fell whilst going to the bathroom. Cannot say if she was dizzy or passed out * sustained a large scalp hematoma which was sutured; not on anticoagulants * cervical spine ct showed no fracture and CT of the brain showed the large scal p hematoma * PT/OT consult * fall precautions * hydrate gently with iVF * PO tylenol, PO oxycodone and IV morphine prn for pain; will dc IV morphine as patient is lethargic * #UTI * was diagnosed with UTI in the ED 2 days prior to admission. * on levaquin; to finish course of levaquin * #Hypertension; on valsartan and amlodipine #Hyperlipidemia; on statin #Type 2 diabtres mellitus #GERD: on PPI #Hypothyroidism; on synthroid #COPD: not in exacerbation. Breathing treatment with bronchodilators. #Depression: on citalopram #History of migraines. On rimegapant as needed and Qulipta #Super morbid obesity: BMI is 51.2. Complicates acute care, expected recovery and prognosis DVT prophylaxis: SCDs. No anticoagulants due to large scalp hematoma Position: Patient initially told me today that she wanted to go to a fci but subsequently told case management that she would prefer to go home but wants to rest the bed in the hospital. Patient advised that she will be discharged tomorrow morning barring any unforeseen circumstances. Charges/Coding Visit Charges Inpatient E&M: 19060 Subs Hosp L2
[2023-02-11] MEDS: cycloBENZAPRine HCl 5 MG TABLET PO (16:12)
--- NOTE | 2023-02-11 16:20 | CASEMGMT ---
Met with patient to complete ROBERT form. ROBERT form explained to patient who voiced understanding and signed form. Original form placed in pt?s chart and copy provided to?patient. Ena Kaur, Discharge Planning Asst
[2023-02-11 16:52] LABS: Bedside Glucose 111 mg/dL (74-106)
[2023-02-11] MEDS: Ondansetron 4 MG/2 ML Vial IV (22:40)
[2023-02-11 22:53] LABS: Bedside Glucose 125 mg/dL (74-106)
--- NOTE | 2023-02-11 23:51 | NURSING ---
Patient exhibiting attention-seeking behavior. During the first hour of this shift, patient put english division chair light approximately 10 times asking for pain meds. This RN went in room to assess pain and noticed patient was drowsy, half-asleep, face and body were relaxed. Pain was under control. Around 2345, patient put on her call light saying no one has been in her room to help her tonight. This RN has been in room to do vitals, assessment, and have given meds. ELECTRICAL LABORATORY TECHNICIAN has assisted patient to the bathroom a couple times. Several minutes after patient said no one has been in her room to help her tonight, this RN rounded. Patient is in bed asleep and snoring.
[2023-02-12] VITALS (8 sets, daily range): BP systolic 113–166; BP diastolic 70–105; PULSE 90–106; RESP 16–20; TEMP 36.3–36.9; O2SAT 82–99
[2023-02-12] MEDS: Acetaminophen 325 MG Tablet 650 MG PO ×2 (04:22→12:13)
[2023-02-12] MEDS: Levothyroxine 175 MCG Tablet PO (04:23)
[2023-02-12 04:54] LABS: Bedside Glucose 174 mg/dL (74-106)
--- NOTE | 2023-02-12 05:37 | NURSING ---
Patient asking for oxy while falling asleep at the same time. No additional pain meds given.
[2023-02-12] MEDS: Budesonide Respules 0.5 MG/2 ML AMPUL.NEB. INHALATION (06:35)
[2023-02-12] MEDS: Ipratropium/Albuterol Sulfate 3 ML AMPUL.NEB INHALATION ×2 (06:35→13:43)
[2023-02-12 06:44] LABS: Absolute Lymphocyte Count 1.44 X10^3/uL (0.83-4.51); Absolute Neutrophil Count 7.7 X10^3/uL (2.0-7.7); Basophil# 0.09 X10^3/uL; Basophil% 0.8 % (0-1); Eosinophil# 0.62 X10^3/uL; Eosinophils% 5.7 % (0-5); Hematocrit 37.9 % (37-47); Hemoglobin 11.7 g/dL (12.0-15.0); Lymphocyte # 1.44 X10^3/ul (0.83-4.51); Lymphocyte % 13.2 % (19-41); Mean Corp Hgb Conc 30.9 g/dL (32-36); Mean Corpuscular Volume 106.8 fL (81-99); Mean Platelet Vol. 9.7 fl (6.2-12.0); Monocyte# 0.99 X10^3/uL; Monocyte% 9.1 % (0-10); NRBC Flagged by Analyzer 0 % (0-5); Neutrophil # 7.68 X10^3/uL (2.7-7.7); Neutrophil % 70.2 % (47-70); POSITIVE MORPHOLOGY YES; Platelet Count 366 K/mm3 (150-450); RBC Distribution Width CV 16.3 % (11.6-14.6); RBC Distribution Width SD 65.3 fl (35.1-43.9); Red Blood Count 3.55 M/mm3 (4.2-5.4); White Blood Count 10.9 K/mm3 (4.4-11.0)
[2023-02-12 06:49] LABS: Differential Indicated SCAN CRITERIA MET
--- NOTE | 2023-02-12 07:07 | EKG12_ITS ---
Test Reason : INDETERMINET CHEST PRESSURE Blood Pressure : / mmHG Vent. Rate : 088 BPM Atrial Rate : 088 BPM P-R Int : 170 ms QRS Dur : 088 ms QT Int : 328 ms P-R-T Axes : 057 013 144 degrees QTc Int : 396 ms Normal sinus rhythm Low voltage QRS Nonspecific T wave abnormality Abnormal ECG When compared with ECG of 10-FEB-2023 05:05, MANUAL COMPARISON REQUIRED, DATA IS UNCONFIRMED Confirmed by MIGUEL GONZALEZ, MAGALI ([id number]), editor magazine ZANDER MAYER ([id number]) on 02/15/2023 11:12:55 AM Referred By: AMBROSIO Confirmed By:MAGALI RIVERA MD
[2023-02-12 07:22] LABS: Anion Gap 3 (5-15); BUN 7 mg/dL (7-18); BUN/Creat Ratio 5.8 RATIO (10-20); Calcium,Total 9.9 mg/dL (8.5-10.1); Chloride 110 mmol/L (98-107); Creatinine, Serum 1.21 mg/dL (0.55-1.02); EST Glomerular Filtration Rate 50 mL/min (>60); Est Glom Filt Rate - Afr Amer 60 mL/min (>60); Estimated Creatinine Clearance 46.96 ml/min; Glucose 137 mg/dL (74-106); Potassium 3.8 mmol/L (3.5-5.1); Sodium Level 141 mmol/L (136-145)
[2023-02-12 07:46] LABS: Troponin-I HS 7 pg/mL (3.0-54.0)
--- NOTE | 2023-02-12 07:57 | NURSING ---
At approximately 0430 Kamala started acting confused. She didn't know where she was and thought in was in the 1980s. This RN explained that oxy would not be given in case the confusion was caused by medication. Patient continued with confusion with falling asleep when talking. At approximately 0600 patient said she was having chest pain. Physician notified. EKG obtained. No stemi.
[2023-02-12 08:58] LABS: Troponin-I HS 8 pg/mL (3.0-54.0)
[2023-02-12 11:51] LABS: Bedside Glucose 133 mg/dL (74-106)
[2023-02-12 12:01] LABS: Anisocytosis 2+; Differential Comment SCANNED; Macrocytosis 1+; Microcytosis 1+
[2023-02-12] MEDS: Losartan Potassium 50 MG Tablet PO (12:13)
[2023-02-12] MEDS: Citalopram 40 MG TABLET PO (12:13)
[2023-02-12] MEDS: Magnesium Chloride 64 MG Delay Rel.Tablet 128 MG PO (12:14)
[2023-02-12] MEDS: levoFLOXacin 750 MG Tablet PO (12:14)
[2023-02-12] MEDS: Potassium Chloride Oral Tablet 10 MEQ PO (12:14)
[2023-02-12] MEDS: Atorvastatin Calcium 80 MG Tablet PO (12:14)
[2023-02-12] MEDS: amLODIPine 10 MG Tablet PO (12:14)
[2023-02-12 12:34] LABS: Troponin-I HS 7 pg/mL (3.0-54.0)
[2023-02-12 12:42] LABS: Bedside Glucose 130 mg/dL (74-106)
--- NOTE | 2023-02-12 13:04 | DS.PCM_ITS ---
Providers Date of Admission: 02/10/23 Date of Discharge: 02/12/23 Primary Care Physician: Halina Johnson DO Reason For Visit: DEBILITY,MECHANICAL FALL Diagnosis Discharge Diagnosis (1) Fall: Status: Acute Code(s): W19.XXXA - Unspecified fall, initial encounter (2) Scalp hematoma: Status: Acute Code(s): S00.03XA - Contusion of scalp, initial encounter Plan #Debility due to mechanical fall with resultant scalp hematoma * admit to med surg * fell whilst going to the bathroom. Cannot say if she was dizzy or passed out * sustained a large scalp hematoma which was sutured; not on anticoagulants * cervical spine ct showed no fracture and CT of the brain showed the large scalp hematoma * PT/OT consult * fall precautions * hydrate gently with iVF * PO tylenol, PO oxycodone and IV morphine prn for pain * #UTI * was diagnosed with UTI in the ED 2 days prior to admission. * on levaquin; to finish course of levaquin * #Hypertension; on valsartan and amlodipine #Hyperlipidemia; on statin #Type 2 diabtres mellitus #GERD: on PPI #Hypothyroidism; on synthroid #COPD: not in exacerbation. Breathing treatment with bronchodilators. #Depression: on citalopram #History of migraines. On rimegapant as needed and Qulipta #Super morbid obesity: BMI is 51.2. Complicates acute care, expected recovery and prognosis DVT prophylaxis: SCDs. No anticoagulants due to large scalp hematoma Code status: Full code * Patient counseled extensively about different types of CODE STATUS including full code, DNR CCA and DNR CCA. Patient elects to be full code. Total [id number] time 16 minutes. Medications at Discharge Home Medications citalopram 40 mg tablet 40 mg PO DAILY DEPRESSION/ANXIETY 07/27/19 budesonide-formoterol HFA 160 mcg-4.5 mcg/actuation aerosol inhaler (Symbicort) 2 puff inhalation BID COPD 04/02/20 rimegepant 75 mg disintegrating tablet (Nurtec ODT) 75 mg PO ONCE PRN MIGRAINES 06/19/20 fluticasone fur. 100 mcg-umeclid 62.5 mcg-vilant 25 mcg inhalat.powder (Trelegy Ellipta) 1 ea inhalation DAILY COPD 08/14/20 galcanezumab-gnlm 120 mg/mL subcutaneous pen injector (Emgality Pen) 120 mg subcut QMONTH MIGRAINES 08/19/21 lorazepam 1 mg tablet 1 mg PO BID PRN ANXIETY 05/04/22 progesterone micronized 200 mg capsule 400 mg PO QHS HORMONES 10/11/22 tramadol 50 mg tablet 50 mg PO TID PAIN 10/11/22 amlodipine 10 mg tablet 10 mg PO DAILY BLOOD PRESSURE #90 tabs 10/28/22 valsartan 320 mg tablet 160 mg (1/2 x 320 mg) PO BID BLOOD PRESSURE #90 tabs 10/28/22 albuterol sulfate 90 mcg/actuation breath activated powder inhaler (ProAir RespiClick) 2 inh inhalation 4X/DAY PRN SHORTNESS OF BREATH #1 ea 11/07/22 metoclopramide HCl 10 mg tablet (Reglan) 10 mg PO Q6H PRN NAUSEA AND VOMTING #20 tabs 01/07/23 gabapentin 100 mg capsule 100 mg PO QHS PRN LEG CRAMPS #14 caps 01/19/23 levofloxacin 750 mg tablet 750 mg PO DAILY #6 tabs 02/08/23 atorvastatin 80 mg tablet 80 mg PO DAILY CHOLESTEROL 02/10/23 cyclobenzaprine 5 mg tablet 5 mg PO Q8H PRN MUSCLE SPASMS 02/10/23 gabapentin 300 mg capsule 300 mg PO TID NERVE PAIN 02/10/23 levothyroxine 175 mcg tablet 175 mcg PO DAILY THYROID 02/10/23 magnesium oxide 400 mg (241.3 mg magnesium) tablet 400 mg PO DAILY SUPPLEMENT 02/10/23 potassium chloride 10 mEq capsule,extended release 10 meq PO DAILY SUPPLEMENT 02/10/23 Hospital Course Operations None Procedures None Summary of Care Provided Minutes Spent on Discharge: 45 Hospital Course: COURTNEY CARMEN, is a 52 F with a PMH as outlined who presents via the ED on 02/10/2023 with a complaint of mechanical fall. She got up to go to the bathroom and fell. She doesnt think she lost consciousness, had any prodromal dizziness or lightheadedness. She hit her head. She had been recently diagnosed with UTI on outpatient basis and was on levaquin, which she had been compliant with. She complained of headache on admission; she denied any nausea, vomiting or abdomina l pain, shortness of breath or any other symptoms. REview of systems was otherwise negative. Vitals in the ED were temp of 97.6F, BP of 151/91, RR of 16 and she was saturating at 95% on room air. CBC showed wbc of 11.9, hb of 12 and platelets of 243. Chemistry was remarkable for Cr of 1.37 but was otherwise unremarkable. Urinalysis showed no evidence of UTI. CT of the cervical spine showed no lexii dence of fracture, and CT brain showed scalp hematoma which was sutured in the ED. Patient felt too weak to go home and so was admitted to be managed for debility due to mechanical fall, with scalp hematoma. She had an uneventful stay and did well. She worked with physical therapy. Pain was well-controlled and she did not have any more bleeding from the hematoma site. The hematoma also did not get anything. Hemoglobin did not drop. She remained stable and was discharged on 02/12/2023. She is follow-up with her primary care doctor within 1 to 2 weeks. Patient seen and examined prior to discharge. She had no active complaints and had an uneventful night. Review of systems otherwise negative. Labs and vitals reviewed. Home medication reviewed and reconciled. Physical Exam Const alert and oriented x3 Constitutional Narrative: super morbid obesity General Appearance: cooperative Orientation / Consciousness: lethargic HEENT normocephalic, hearing grossly normal bilaterally and moist oral mucous membranes HEENT Narrative: Scalp hematoma site which is sutured is clean with no visible bleeding. Eyes PERRL and EOMs intact bilaterally Neck no lymphadenopathy and supple Resp normal respiratory effort, normal air movement, no retractions, no use of accessory muscles and clear to auscultation bilaterally Cardio regular rate, regular rhythm, S1 normal heart sound, S2 normal heart sound and no murmurs GI normal to inspection, nondistended, normoactive bowel sounds, soft to palpation and non-tender Extremity normal to inspection, full ROM, normal capillary refill and no clubbing, cyanosis or edema General Extremity: no tenderness to palpation of joints or extremities Skin no rashes or lesions noted General Skin Exam: no breakdown Neuro oriented x3, CN's II-XII intact bilaterally, moves all extremities and no focal motor deficits Sensorium / Orientation: awake and alert Motor Exam: strength 5/5 throughout Psych affect normal Weight / BMI Weight Weight: 292 lb 12.382 oz Body Mass Index (BMI) 50.2 ABG / Lab / Microbiology Data 02/12/23 06:36 02/12/23 06:36 Laboratory: Laboratory Results - last 24 hr 02/11/23 16:15: POC Glucose 111 H 02/11/23 22:21: POC Glucose 125 H 02/12/23 04:13: POC Glucose 174 H 02/12/23 06:36: WBC 10.9, RBC 3.55 L, Hgb 11.7 L, Hct 37.9, MCV 106.8 H D, MCH 33.0 H, MCHC 30.9 L, RDW Std Deviation 65.3 H, RDW Coeff of Alfredo 16.3 H, Plt Coun t 366, MPV 9.7, Immature Gran % (Auto) 1.000 H, Neut % (Auto) 70.2 H, Lymph % (Auto) 13.2 L, [place] % (Auto) 9.1, Eos % (Auto) 5.7 H, Baso % (Auto) 0.8, Absolute Neuts (auto) 7.7, Absolute Lymphs (auto) 1.44, Nucleated RBC % 0, Differential Comment SCANNED, Anisocytosis 2+, Microcytosis 1+, Macrocytosis 1+, Sodium 141, Potassium 3.8, Chloride 110 H, Carbon Dioxide 28.0, Anion Gap 3 L, BUN 7, Creatinine 1.21 H, Estim Creat Clear Calc 46.96, Est GFR (MDRD) Af Amer 60, Est GFR (MDRD) Non-Af 50 L, BUN/Creatinine Ratio 5.8 L, Glucose 137 H, Calcium 9.9, Troponin I High Sens 7 02/12/23 06:50: POC Glucose 133 H 02/12/23 08:20: Troponin I High Sens 8 02/12/23 12:09: Troponin I High Sens 7 02/12/23 12:20: POC Glucose 130 H D/C Instructions Discharge Diet: Low fat / Low cholesterol Discharge Activity: Return to Normal Activity Weight Bearing Status: Weight bearing as tolerated Call your doctor if you observe: Fever of 101 or Higher, Shortness of breath, Dizziness, Swelling in the ankles and Chest pain Meaningful Use Info Meaningful Use Diagnoses (Choose all that apply): None applicable Discharge Plan Admission Admit Date/Time: 02/10/23 09:03 Primary Reason for Your Visit: mechanical fall Attending Provider: Daria Knight Primary Care Provider: Halina Johnson Instructions Patient Instructions: ED Mechanical Fall, ED FALL-from [id number] Discharge Orders/Prescriptions Prescriptions: Continued budesonide-formoterol [Symbicort] 160-4.5 mcg/actuation HFA aerosol inhaler 2 puff INHALATION BID Nurtec ODT 75 mg tablet,disintegrating 75 mg PO ONCE PRN (Reason: MIGRAINES ) Emgality Pen 120 mg/mL pen injector 120 mg subcut QMONTH Patient Comments: PT STATES THEY WERE DUE TO GET THIS A WEEK AGO BUT CANNOT AFFORD TO DO SO AT THIS TIME 9AS OF 02-10-23) Trelegy Ellipta 100-62.5-25 mcg blister with device 1 ea INHALATION DAILY lorazepam 1 mg tablet 1 mg PO BID PRN (Reason: ANXIETY ) tramadol 50 mg tablet 50 mg PO TID progesterone micronized 200 mg capsule 400 mg PO QHS ProAir RespiClick 90 mcg/actuation aerosol powdr breath activated 2 inh INHALATION 4X/DAY PRN (Reason: SHORTNESS OF BREATH ) Qty: 1 0RF gabapentin 100 mg capsule 100 mg PO QHS PRN (Reason: LEG CRAMPS) Qty: 14 0RF levofloxacin 750 mg tablet 750 mg PO DAILY Qty: 6 0RF Patient Comments: NEW RX FILLED ON 02-08-23 WITH THE DIRECTIONS OF TAKE ONE TABLET BY MOUTH ONCE DAILY . RX IS A 6 DAY SUPPLY cyclobenzaprine 5 mg tablet 5 mg PO Q8H PRN (Reason: MUSCLE SPASMS ) magnesium oxide 400 mg (241.3 mg magnesium) tablet 400 mg PO DAILY potassium chloride 10 mEq capsule, extended release 10 meq PO DAILY gabapentin 300 mg capsule 300 mg PO TID Patient Comments: PT STATES, DR. PEREZ RECENTLY UPPED THE DIRECTIONS TO ONE CAPSULE BY MOUTH THREE TIMES A DAY INSTEAD OF ONCE DAILY 9AS OF 02-10-23) levothyroxine 175 mcg tablet 175 mcg PO DAILY atorvastatin 80 mg Tablet 80 mg PO DAILY metoclopramide HCl [Reglan] 10 mg tablet 10 mg PO Q6H PRN (Reason: NAUSEA AND VOMTING ) Qty: 20 0RF citalopram 40 mg tablet 40 mg PO DAILY amlodipine 10 mg tablet 10 mg PO DAILY Qty: 90 3RF valsartan 320 mg tablet 160 mg PO BID Qty: 90 3RF Referrals / Follow Up: Halina Johnson DO [Primary Care Provider] - Within 1 Week Disposition Disposition (needs filled in before D/C Order can be placed): Home, Self Care Charges/Coding Visit Charges Inpatient E&M: 90204 Disch Hosp >30min
== END 2023-02-12 14:55 | disposition home or self-care (01) ==
LOC: ED 09:04 → MS3 09:12
PROVIDERS: Admitting Provider Student in an Organized Health Care Education/Training Program; Emergency Provider Emergency Medicine; PCP Family Medicine; Visit Provider Student in an Organized Health Care Education/Training Program
DX: R53.81 Other malaise (principal); J44.9 Chronic obstructive pulmonary disease, unspecified; E11.22 Type 2 diabetes mellitus with diabetic chronic kidney disease; E66.01 Morbid (severe) obesity due to excess calories; Z68.43 Body mass index [BMI] 50.0-59.9, adult; Z79.899 Other long term (current) drug therapy; S01.01XA Laceration without foreign body of scalp, initial encounter; N39.0 Urinary tract infection, site not specified; I12.9 Hypertensive chronic kidney disease with stage 1 through stage 4 chronic kidney disease, or unspecified chronic kidney disease; N18.9 Chronic kidney disease, unspecified; E03.9 Hypothyroidism, unspecified; E78.5 Hyperlipidemia, unspecified; G89.29 Other chronic pain; W19.XXXA Unspecified fall, initial encounter; Z79.51 Long term (current) use of inhaled steroids; Y93.89 Activity, other specified; Y92.002 Bathroom of unspecified non-institutional (private) residence as the place of occurrence of the external cause; Z79.890 Hormone replacement therapy; K21.9 Gastro-esophageal reflux disease without esophagitis; F32.A Depression, unspecified; Z28.21 Immunization not carried out because of patient refusal
CPT/HCPCS: 12004; 36415; 70450; 71045; 72125; 80048; 80053; 81001; 82962; 84484; 85025; 85610; 85730; 93005; 94640; 96361; 96374; 96375; 96376; 97162; 97166; 99221; 99285; J7030; A4216; G0378; J2405

== ENCOUNTER 2023-02-14 00:55 | Emergency (ER) | payer MEDICARE, MEDICAID, SELFPAY ==
[2023-02-14 00:56] VITALS: PULSE 85; RESP 16; TEMP 36.6; O2SAT 95; BMI 49.9
--- NOTE | 2023-02-14 02:25 | EKG12_ITS ---
Test Reason : CP Blood Pressure : / mmHG Vent. Rate : 072 BPM Atrial Rate : 072 BPM P-R Int : 152 ms QRS Dur : 082 ms QT Int : 376 ms P-R-T Axes : 047 -06 076 degrees QTc Int : 411 ms Normal sinus rhythm Nonspecific ST and T wave abnormality Abnormal ECG Confirmed by MIGUEL GONZALEZ, MAGALI ([id number]), assistant editor ZANDER MAYER ([id number]) on 02/14/2023 1:13:52 PM Referred By: Confirmed By:MAGALI RIVERA MD
--- NOTE | 2023-02-14 02:27 | EX.ED.DYSGE1 ---
HPI History of Present Illness Chief Complaint: Headache Informant: patient and EMS Narrative Narrative: Patient presents here by EMS for headache that she has had for the past 4 days since she fell and hit her head, she was subsequently admitted to the hospital after negative head CT but feeling too weak to go home. She was discharged 2 days ago after doing well with therapy. However, although she admits to having a headache, she states to me that she came here because she woke up with chest pain. There is nothing on the EMS note about this. She states that started just prior to coming here when she woke up. It feels like someone pushing on me. She states she feels a little short of breath with it. She denies any nausea or vomiting. No focal neurologic symptoms. No other complaints. [facility] Medical History Abnormal glucose Anemia Anxiety Arthritis Asthma BiPAP (biphasic positive airway pressure) dependence Cardiac murmur Cardiology follow-up encounter Celiac disease Chest pain Cholelithiasis Chronic kidney disease Closed head injury Complex laceration of scalp Constipation COPD (chronic obstructive pulmonary disease) Depression Diabetes mellitus Dietary restriction Difficulty swallowing Dyspnea on exertion Fall Fall GERD (gastroesophageal reflux disease) Gout History of chronic back pain History of chronic kidney disease History of echocardiogram History of edema History of pain when walking History of stress test Hydronephrosis Hyperlipidemia Hypersomnia Hypertension Hypothyroidism Injury of head and neck Iron deficiency anemia Kidney stones Leg cramps Microcytic anemia Migraine headache Morbid obesity with BMI of 40.0-44.9, adult Non-smoker Noncompliance DAVY treated with BiPAP Post-menopausal Pulmonary embolism Restless leg syndrome Scalp hematoma Seasonal allergies Shortness of breath on exertion Syncope Syncope Thyroid disease Ureterolithiasis UTI (urinary tract infection) Vitamin B12 deficiency Vitamin D deficiency Wears glasses Home Medications citalopram 40 mg tablet 40 mg PO DAILY DEPRESSION/ANXIETY 07/27/19 [History Last Taken 02/10/23] budesonide-formoterol HFA 160 mcg-4.5 mcg/actuation aerosol inhaler (Symbicort) 2 puff inhalation BID COPD 04/02/20 [History Last Taken 02/10/23] rimegepant 75 mg disintegrating tablet (Nurtec ODT) 75 mg PO ONCE PRN MIGRAINES 06/19/20 [History Last Taken 05/04/22] fluticasone fur. 100 mcg-umeclid 62.5 mcg-vilant 25 mcg inhalat.powder (Trelegy Ellipta) 1 ea inhalation DAILY COPD 08/14/20 [History Last Taken 02/10/23] galcanezumab-gnlm 120 mg/mL subcutaneous pen injector (Emgality Pen) 120 mg subcut QMONTH MIGRAINES 08/19/21 [History Last Taken 01/06/23] lorazepam 1 mg tablet 1 mg PO BID PRN ANXIETY 05/04/22 [History Last Taken 02/08/23] progesterone micronized 200 mg capsule 400 mg PO QHS HORMONES 10/11/22 [History Last Taken 02/09/23] tramadol 50 mg tablet 50 mg PO TID PAIN 10/11/22 [History Last Taken 02/10/23] amlodipine 10 mg tablet 10 mg PO DAILY BLOOD PRESSURE #90 tabs 10/28/22 [Rx Last Taken 02/10/23] valsartan 320 mg tablet 160 mg (1/2 x 320 mg) PO BID BLOOD PRESSURE #90 tabs 10/28/22 [Rx Last Taken 02/10/23] albuterol sulfate 90 mcg/actuation breath activated powder inhaler (ProAir RespiClick) 2 inh inhalation 4X/DAY PRN SHORTNESS OF BREATH #1 ea 11/07/22 [Rx Last Taken Unknown] metoclopramide HCl 10 mg tablet (Reglan) 10 mg PO Q6H PRN NAUSEA AND VOMTING #20 tabs 01/07/23 [Rx Last Taken Unknown] gabapentin 100 mg capsule 100 mg PO QHS PRN LEG CRAMPS #14 caps 01/19/23 [Rx Last Taken Unknown] levofloxacin 750 mg tablet 750 mg PO DAILY #6 tabs 02/08/23 [Rx Last Taken 02/09/23] atorvastatin 80 mg tablet 80 mg PO DAILY CHOLESTEROL 02/10/23 [History Last Taken 02/10/23] cyclobenzaprine 5 mg tablet 5 mg PO Q8H PRN MUSCLE SPASMS 02/10/23 [History Last Taken 02/08/23] gabapentin 300 mg capsule 300 mg PO TID NERVE PAIN 02/10/23 [History Last Taken 02/10/23] levothyroxine 175 mcg tablet 175 mcg PO DAILY THYROID 02/10/23 [History Last Taken 02/10/23] magnesium oxide 400 mg (241.3 mg magnesium) tablet 400 mg PO DAILY SUPPLEMENT 02/10/23 [History Last Taken 02/09/23] potassium chloride 10 mEq capsule,extended release 10 meq PO DAILY SUPPLEMENT 02/10/23 [History Last Taken 02/10/23] Allergy/AdvReac Type Severity Reaction Status Date / Time hydrochlorothiazide AdvReac Intermediate Contributes Verified 02/14/23 00:56 to gout naproxen [From Naprosyn] AdvReac Intermediate Nausea Verified 02/14/23 00:56 aspirin AdvReac Nausea Verified 02/14/23 00:56 Family History Father , Age 72 Hypertension Mother CAD (coronary artery disease) Myocardial infarction, Onset Age: 55 Hypertension Sister CAD (coronary artery disease) Brother Cancer Surgical History History of History of cardiac catheterization History of carpal tunnel surgery of left wrist History of carpal tunnel surgery of right wrist History of left heart catheterization (11/11/20) history of uterine ablation Hx of cystoscopy Social History household members: none housing: apartment Smoking Status: Never smoker alcohol intake: never substance use type: does not use caffeine: No ROS ROS ED Constitutional Constitutional ED: Denies chills or fever(s) Eyes Eyes: Denies change in vision or diplopia ENT ENT ED: Denies rhinorrhea or sore throat Cardiovascular Cardiovascular: Reports chest pain; Denies palpitations Respiratory/Chest Respiratory/Chest: Reports dyspnea; Denies cough Gastrointestinal Gastrointestinal: Denies abdominal pain, diarrhea, nausea or vomiting Genitourinary Genitourinary ED: Denies dysuria or hematuria Musculoskeletal Musculoskeletal: Denies back pain or neck pain Integumentary Denies abscess or rash Neurologic Neurologic: Reports headache(s); Denies paresthesias or weakness Psychiatric Psychiatric: Denies anxiety or suicidal thoughts EXAM Physical Exam Const Vital Signs: 02/14/23 00:56 02/14/23 02:53 02/14/23 02:54 Temperature 97.8 F Temperature Source Temporal Pulse Rate 85 71 Respiratory Rate 16 16 Pulse Ox 95 97 98 Oxygen Delivery Method Room Air Room Air Positive well nourished, well developed and obese General Appearance ED: well developed and NAD Nutritional Appearance: obese HEENT Reports moist mucous membranes HEENT Narrative: Tender nonacute hematoma associated with repaired laceration left parietal scalp, healing well no dehiscence or signs of infection or bleeding/discharge. Sutures intact. normocephalic and atraumatic Eyes PERRL and EOMs intact bilaterally Neck full ROM and supple Chest Wall inspection of chest normal and palpation of chest normal Resp normal respiratory effort and clear to auscultation bilaterally Cardio regular rate, regular rhythm and no murmurs GI non-tender and non-distended Auscultation: normoactive bowel sounds Palpation: soft Back/Spine no CVA tenderness General Back: other FROM Extremity normal to inspection General Extremety ED: Negative for edema, pulses abnormal or tenderness General Extremity: Negative for edema or pulses abnormal Neuro oriented x3, CN's II-XII intact bilaterally and no sensory deficits noted Sensorium / Orientation: awake and alert Motor Exam: strength 5/5 throughout Skin no rashes or lesions noted and no wounds MDM MDM MDM Narrative Medical decision making narrative: Patient primarily complaining of a headache since her injury, she is not anticoagulated, she already had a head CT which was negative for acute injury including skull fracture or bleed, which I reviewed, and she was admitted to the hospital and observed neurologically without subsequent issue. I do not think she needs repeat head CT. I treated her headache. With regards to her chest discomfort, her EKG and initial troponin are normal. We will perform a 2-hour repeat measurement of the troponin I, her x-ray 1 view on my interpretation looks normal and the rest of the labs are unremarkable at this time. We offered her a GI cocktail for the chest discomfort which seems less likely cardiac related, but she does have a history of CAD. He said it did not help. The nurses had to wake her up to give her medications, and each time she said that her pain was 10/10 despite getting these medications. Second troponin measurement is same as the initial measurement, for a delta of 0. At this time the patient is stable for discharge home, will offer her additional analgesics prior to discharge. Lab Data Attestation: I reviewed the patient's lab results. Labs: Laboratory Results - last 24 hr 02/14/23 02/14/23 02:48 04:54 WBC 12.1 H RBC 3.53 L Hgb 11.5 L Hct 36.7 L MCV 104.0 H MCH 32.6 H MCHC 31.3 L RDW Std Deviation 62.5 H RDW Coeff of Alfredo 16.2 H Plt Count 333 MPV 10.2 Immature Gran % (Auto) 0.400 Neut % (Auto) 72.0 H Lymph % (Auto) 15.5 L [place] % (Auto) 7.4 Eos % (Auto) 4.0 Baso % (Auto) 0.7 Absolute Neuts (auto) 8.7 H Absolute Lymphs (auto) 1.87 Nucleated RBC % 0 Sodium 141 Potassium 4.1 Chloride 106 Carbon Dioxide 27.0 Anion Gap 8 BUN 8 Creatinine 1.18 H Estim Creat Clear Calc 48.16 Est GFR (MDRD) Af Amer 62 Est GFR (MDRD) Non-Af 51 L BUN/Creatinine Ratio 6.8 L Glucose 127 H Calcium 9.2 Troponin I High Sens 9 9 Radiography Chest X-Ray - ED: 1 View, Read by ED Physician, No Acute Disease and No Infiltrates Diagnostic Testing: Clinical Impression(s) from Imaging Studies Chest X-Ray 02/14/23 02:54 IMPRESSION: No acute pulmonary disease. Electronically Signed: Wilfrido Santana MD at 3:58 EST , Rhythm Strip Rhythm Strip: Sinus Rhythm Rate: 75 Ectopy: None EKG Initial EKG: Attestation: I personally reviewed and interpreted this EKG as follows: Interpretation: Sinus Rhythm, No Acute Injury Pattern and Non-Specific ST Changes Prior EKG tracings: available for review Prior: Unchanged Discharge Plan Triage Chief Complaint: Headache ED Provider: Ricardo Driver Dx/Rx/DC Orders Clinical Impression: Chest pain, unspecified, Closed head injury with concussion Instructions: After a Concussion, ED Chest Pain, Uncertain Cause Prescriptions: No Action budesonide-formoterol [Symbicort] 160-4.5 mcg/actuation HFA aerosol inhaler 2 puff INHALATION BID Nurtec ODT 75 mg tablet,disintegrating 75 mg PO ONCE PRN (Reason: MIGRAINES ) Emgality Pen 120 mg/mL pen injector 120 mg subcut QMONTH Patient Comments: PT STATES THEY WERE DUE TO GET THIS A WEEK AGO BUT CANNOT AFFORD TO DO SO AT THIS TIME 9AS OF 02-10-23) Trelegy Ellipta 100-62.5-25 mcg blister with device 1 ea INHALATION DAILY lorazepam 1 mg tablet 1 mg PO BID PRN (Reason: ANXIETY ) tramadol 50 mg tablet 50 mg PO TID progesterone micronized 200 mg capsule 400 mg PO QHS ProAir RespiClick 90 mcg/actuation aerosol powdr breath activated 2 inh INHALATION 4X/DAY PRN (Reason: SHORTNESS OF BREATH ) Qty: 1 0RF gabapentin 100 mg capsule 100 mg PO QHS PRN (Reason: LEG CRAMPS) Qty: 14 0RF levofloxacin 750 mg tablet 750 mg PO DAILY Qty: 6 0RF Patient Comments: NEW RX FILLED ON 02-08-23 WITH THE DIRECTIONS OF TAKE ONE TABLET BY MOUTH ONCE DAILY . RX IS A 6 DAY SUPPLY cyclobenzaprine 5 mg tablet 5 mg PO Q8H PRN (Reason: MUSCLE SPASMS ) magnesium oxide 400 mg (241.3 mg magnesium) tablet 400 mg PO DAILY potassium chloride 10 mEq capsule, extended release 10 meq PO DAILY gabapentin 300 mg capsule 300 mg PO TID Patient Comments: PT STATES, DR. PEREZ RECENTLY UPPED THE DIRECTIONS TO ONE CAPSULE BY MOUTH THREE TIMES A DAY INSTEAD OF ONCE DAILY 9AS OF 02-10-23) levothyroxine 175 mcg tablet 175 mcg PO DAILY atorvastatin 80 mg Tablet 80 mg PO DAILY metoclopramide HCl [Reglan] 10 mg tablet 10 mg PO Q6H PRN (Reason: NAUSEA AND VOMTING ) Qty: 20 0RF citalopram 40 mg tablet 40 mg PO DAILY amlodipine 10 mg tablet 10 mg PO DAILY Qty: 90 3RF valsartan 320 mg tablet 160 mg PO BID Qty: 90 3RF Primary Care Provider: Halina Johnson Referrals: Halina Johnson, DO [Primary Care Provider] - 1-2 Days if not improving Disposition Disposition: Home, Self Care
[2023-02-14] MEDS: Ketorolac 15 MG/ML Vial IV (02:45)
[2023-02-14] MEDS: Acetaminophen 325 MG Tablet 650 MG PO (02:47)
[2023-02-14 02:53] VITALS: O2SAT 97
[2023-02-14 02:54] VITALS: PULSE 71; RESP 16; O2SAT 98
--- NOTE | 2023-02-14 02:54 | RAD_ITS ---
INDICATION: chest pain EXAMINATION: Frontal view of the chest COMPARISON: Chest x-ray February 10, 2023. FINDINGS: Frontal view of the chest was obtained. Suboptimal inspiration. The cardiac silhouette is mildly enlarged. No confluent airspace disease. No pneumothorax. No acute fracture identified. RAD/Chest 1 View (Portable) IMPRESSION: No acute pulmonary disease. Electronically Signed: Wilfrido Santana MD at 3:58 EST ,
[2023-02-14 03:05] LABS: Absolute Lymphocyte Count 1.87 X10^3/uL (0.83-4.51); Absolute Neutrophil Count 8.7 X10^3/uL (2.0-7.7); Basophil# 0.08 X10^3/uL; Basophil% 0.7 % (0-1); Eosinophil# 0.49 X10^3/uL; Hematocrit 36.7 % (37-47); Hemoglobin 11.5 g/dL (12.0-15.0); Lymphocyte # 1.87 X10^3/ul (0.83-4.51); Lymphocyte % 15.5 % (19-41); Mean Corp Hgb Conc 31.3 g/dL (32-36); Mean Corpuscular Hgb 32.6 pg (27.0-32.0); Mean Platelet Vol. 10.2 fl (6.2-12.0); Monocyte# 0.89 X10^3/uL; Monocyte% 7.4 % (0-10); NRBC Flagged by Analyzer 0 % (0-5); Neutrophil # 8.72 X10^3/uL (2.7-7.7); Platelet Count 333 K/mm3 (150-450); RBC Distribution Width CV 16.2 % (11.6-14.6); RBC Distribution Width SD 62.5 fl (35.1-43.9); Red Blood Count 3.53 M/mm3 (4.2-5.4); White Blood Count 12.1 K/mm3 (4.4-11.0)
[2023-02-14 03:17] LABS: Anion Gap 8 (5-15); BUN 8 mg/dL (7-18); BUN/Creat Ratio 6.8 RATIO (10-20); Calcium,Total 9.2 mg/dL (8.5-10.1); Chloride 106 mmol/L (98-107); Creatinine, Serum 1.18 mg/dL (0.55-1.02); EST Glomerular Filtration Rate 51 mL/min (>60); Est Glom Filt Rate - Afr Amer 62 mL/min (>60); Estimated Creatinine Clearance 48.16 ml/min; Glucose 127 mg/dL (74-106); Potassium 4.1 mmol/L (3.5-5.1); Sodium Level 141 mmol/L (136-145); Troponin-I HS (w/2H Reflex) 9 pg/mL (3.0-54.0)
[2023-02-14] MEDS: Mag Hydrox/Al Hydrox/Simeth 30 ML UDC PO (04:18)
[2023-02-14 04:50] LABS: Reflex Troponin-HS? (from REC) Y
[2023-02-14 04:54] VITALS: BP 134/79; PULSE 68; RESP 16; O2SAT 97
[2023-02-14 05:16] LABS: Troponin-I HS 9 pg/mL (3.0-54.0)
== END 2023-02-14 05:58 | disposition home or self-care (01) ==
PROVIDERS: Emergency Provider Emergency Medicine; PCP Family Medicine; Visit Provider Emergency Medicine
DX: R07.9 Chest pain, unspecified (principal); J44.9 Chronic obstructive pulmonary disease, unspecified; E11.22 Type 2 diabetes mellitus with diabetic chronic kidney disease; S06.0X0A Concussion without loss of consciousness, initial encounter; I25.10 Atherosclerotic heart disease of native coronary artery without angina pectoris; N18.9 Chronic kidney disease, unspecified; G47.33 Obstructive sleep apnea (adult) (pediatric); W19.XXXA Unspecified fall, initial encounter; E66.9 Obesity, unspecified; Z86.711 Personal history of pulmonary embolism
CPT/HCPCS: 71045; 80048; 84484; 85025; 93005; 96374; 99284; A4216

== ENCOUNTER → 2023-02-15 | Outpatient (CLI) | payer MEDICARE, MEDICAID, SELFPAY ==
--- NOTE | 2023-02-15 11:08 | NEURO ---
NCS and/or EMG Patient Report Ordering Doctor: Yair Pressley DATE OF SERVICE: 02/15/23 Clinical Summary: This is a 52 year old female presenting with complaints of numbness diffusely in the right upper extremity including the hand. She had carpal tunnel release surgery bilaterally a few years ago. This EMG/NCS was performed to evaluate for right cervical radiculopathy and right carpal tunnel syndrome. Nerve Conduction Studies Summary: The right median-D2 SNAP distal latency was prolonged with reduced amplitude. The right median-APB CMAP distal latency was prolonged. The right median motor conduction velocity was reduced in the forearm segment. Needle Examination Summary: Needle examination demonstrated increased insertional activity and spontaneous activity (positive sharp waves and fibrillation potentials) in the right abductor pollicis brevis muscle. There was a higher proportion of motor unit action potentials with reduced recruitment, decreased amplitude, decreased duration, and polyphasia in the right abductor pollicis brevis muscle. Impression: There is electrodiagnostic evidence of the following - 1) Severe, right median mononeuropathy at the wrist (carpal tunnel syndrome), with active denervation There is no electrodiagnostic evidence of a right cervical radiculopathy. Multi Select Codes Neurology Neurology Interp Codes: 18148-82 Musc test done w/n test comp (interp) (1) and 87641-50 Nrv cndj test 7-8 studies (interp)
== END | disposition home or self-care (01) ==
LOC: PSN 10:17
PROVIDERS: PCP Family Medicine; Referring Provider Family Medicine; Visit Provider Family Medicine
DX: R20.2 Paresthesia of skin (principal)
CPT/HCPCS: 95886; 95910

== ENCOUNTER 2023-02-20 02:05 | Emergency (ER) | payer MEDICARE, MEDICAID, SELFPAY ==
[2023-02-20 02:25] VITALS: BP 146/101; PULSE 87; RESP 18; TEMP 36.8; O2SAT 97; BMI 48.2
--- NOTE | 2023-02-20 02:45 | EKG12_ITS ---
Test Reason : CP Blood Pressure : / mmHG Vent. Rate : 085 BPM Atrial Rate : 085 BPM P-R Int : 166 ms QRS Dur : 080 ms QT Int : 460 ms P-R-T Axes : 054 -07 024 degrees QTc Int : 547 ms Normal sinus rhythm Nonspecific ST and T wave abnormality Abnormal ECG Confirmed by MIGUEL GONZALEZ, MAGALI ([id number]), publishing editor SONJA ZABALA ([id number]) on 03/01/2023 9:08:00 AM Referred By: JENNIFER Confirmed By:MAGALI RIVERA MD
--- NOTE | 2023-02-20 02:50 | RAD_ITS ---
EXAM: XR CHEST, 1 VIEW CLINICAL INDICATION: chest pain TECHNIQUE: Frontal view of the chest. COMPARISON: Previous chest radiographs of 02/14/2023 and 02/10/2023. FINDINGS: LUNGS AND PLEURAL SPACES: Unremarkable. No consolidation or edema. No pneumothorax. No effusion. HEART: Heart size remains mildly enlarged with normal pulmonary vasculature. MEDIASTINUM: Central airways and mediastinal contour are unremarkable. No mediastinal widening. BONES/JOINTS: Unremarkable. No acute osseous abnormality. SOFT TISSUES: Unremarkable. RAD/Chest 1 View (Portable) IMPRESSION: No significant interval change. No radiographic evidence of acute cardiopulmonary disease. Electronically Signed: James Jenkins MD at 3:18 EST ,
[2023-02-20 02:53] LABS: Absolute Lymphocyte Count 1.87 X10^3/uL (0.83-4.51); Basophil# 0.11 X10^3/uL; Basophil% 0.9 % (0-1); Eosinophil# 0.66 X10^3/uL; Eosinophils% 5.6 % (0-5); Hematocrit 37.3 % (37-47); Hemoglobin 11.6 g/dL (12.0-15.0); Lymphocyte # 1.87 X10^3/ul (0.83-4.51); Lymphocyte % 15.9 % (19-41); Mean Corp Hgb Conc 31.1 g/dL (32-36); Mean Corpuscular Hgb 32.9 pg (27.0-32.0); Mean Corpuscular Volume 105.7 fL (81-99); Mean Platelet Vol. 10.5 fl (6.2-12.0); Monocyte# 1.07 X10^3/uL; Monocyte% 9.1 % (0-10); NRBC Flagged by Analyzer 0 % (0-5); Neutrophil # 7.98 X10^3/uL (2.7-7.7); Platelet Count 383 K/mm3 (150-450); RBC Distribution Width CV 15.8 % (11.6-14.6); RBC Distribution Width SD 62.2 fl (35.1-43.9); Red Blood Count 3.53 M/mm3 (4.2-5.4); White Blood Count 11.8 K/mm3 (4.4-11.0)
[2023-02-20] MEDS: Acetaminophen 325 MG Tablet 650 MG PO (02:58)
[2023-02-20] MEDS: Lidocaine 5% Patch 1 PATCH TOPICAL (03:04)
--- NOTE | 2023-02-20 03:08 | ED.VIS.CHEST ---
HPI History of Present Illness Chief Complaint: Chest Pain Informant: patient Narrative Narrative: Is a 52-year-old female with history of COPD, coronary artery disease, hypothyroid, hyperlipidemia, diabetes mellitus, active sleep apnea and GERD presenting for worsening chest pain. Patient states she has chest pain that started 2 days ago. She notes her mom took her in a car ride and seem to calm down. It is in the center of her chest. She describes a sensation of a brick on her chest and she feels associated with short of breath. The pain has been more persistent through the last day and she came in via EMS today for further evaluation. She states she was afraid because she lives home alone. She denies any cough or URI symptoms. She denies any leg swelling. She took [place] which she has at home with no help. Patient was recently admitted to the hospital for debility and fall with a head injury. She subsequently was discharged home with home health which she is plan on starting on 03/02. This was on 02/12. She was seen on 02/14 in the ER for chest pain and discharged home at that time after having a negative cardiac workup including negative delta troponin. Patient denies any history of DVT or PE. Patient does also note that she had an episode of vomiting yesterday. She is not sure if this is related. She currently denies any abdominal pain. No other complaints or concerns at this time. Is not on any blood thinners. [facility] Medical History Abnormal glucose Anemia Anxiety Arthritis Asthma BiPAP (biphasic positive airway pressure) dependence Cardiac murmur Cardiology follow-up encounter Celiac disease Chest pain Cholelithiasis Chronic kidney disease Closed head injury Complex laceration of scalp Constipation COPD (chronic obstructive pulmonary disease) Depression Diabetes mellitus Dietary restriction Difficulty swallowing Dyspnea on exertion Fall Fall GERD (gastroesophageal reflux disease) Gout History of chronic back pain History of chronic kidney disease History of echocardiogram History of edema History of pain when walking History of stress test Hydronephrosis Hyperlipidemia Hypersomnia Hypertension Hypothyroidism Injury of head and neck Iron deficiency anemia Kidney stones Leg cramps Microcytic anemia Migraine headache Morbid obesity with BMI of 40.0-44.9, adult Non-smoker Noncompliance DAVY treated with BiPAP Post-menopausal Pulmonary embolism Restless leg syndrome Scalp hematoma Seasonal allergies Shortness of breath on exertion Syncope Syncope Thyroid disease Ureterolithiasis UTI (urinary tract infection) Vitamin B12 deficiency Vitamin D deficiency Wears glasses Home Medications citalopram 40 mg tablet 40 mg PO DAILY DEPRESSION/ANXIETY 07/27/19 [History Last Taken 02/10/23] budesonide-formoterol HFA 160 mcg-4.5 mcg/actuation aerosol inhaler (Symbicort) 2 puff inhalation BID COPD 04/02/20 [History Last Taken 02/10/23] rimegepant 75 mg disintegrating tablet (Nurtec ODT) 75 mg PO ONCE PRN MIGRAINES 06/19/20 [History Last Taken 05/04/22] fluticasone fur. 100 mcg-umeclid 62.5 mcg-vilant 25 mcg inhalat.powder (Trelegy Ellipta) 1 ea inhalation DAILY COPD 08/14/20 [History Last Taken 02/10/23] galcanezumab-gnlm 120 mg/mL subcutaneous pen injector (Emgality Pen) 120 mg subcut QMONTH MIGRAINES 08/19/21 [History Last Taken 01/06/23] lorazepam 1 mg tablet 1 mg PO BID PRN ANXIETY 05/04/22 [History Last Taken 02/08/23] progesterone micronized 200 mg capsule 400 mg PO QHS HORMONES 10/11/22 [History Last Taken 02/09/23] tramadol 50 mg tablet 50 mg PO TID PAIN 10/11/22 [History Last Taken 02/10/23] amlodipine 10 mg tablet 10 mg PO DAILY BLOOD PRESSURE #90 tabs 10/28/22 [Rx Last Taken 02/10/23] valsartan 320 mg tablet 160 mg (1/2 x 320 mg) PO BID BLOOD PRESSURE #90 tabs 10/28/22 [Rx Last Taken 02/10/23] albuterol sulfate 90 mcg/actuation breath activated powder inhaler (ProAir RespiClick) 2 inh inhalation 4X/DAY PRN SHORTNESS OF BREATH #1 ea 11/07/22 [Rx Last Taken Unknown] metoclopramide HCl 10 mg tablet (Reglan) 10 mg PO Q6H PRN NAUSEA AND VOMTING #20 tabs 01/07/23 [Rx Last Taken Unknown] gabapentin 100 mg capsule 100 mg PO QHS PRN LEG CRAMPS #14 caps 01/19/23 [Rx Last Taken Unknown] levofloxacin 750 mg tablet 750 mg PO DAILY #6 tabs 02/08/23 [Rx Last Taken 02/09/23] atorvastatin 80 mg tablet 80 mg PO DAILY CHOLESTEROL 02/10/23 [History Last Taken 02/10/23] cyclobenzaprine 5 mg tablet 5 mg PO Q8H PRN MUSCLE SPASMS 02/10/23 [History Last Taken 02/08/23] gabapentin 300 mg capsule 300 mg PO TID NERVE PAIN 02/10/23 [History Last Taken 02/10/23] levothyroxine 175 mcg tablet 175 mcg PO DAILY THYROID 02/10/23 [History Last Taken 02/10/23] magnesium oxide 400 mg (241.3 mg magnesium) tablet 400 mg PO DAILY SUPPLEMENT 02/10/23 [History Last Taken 02/09/23] potassium chloride 10 mEq capsule,extended release 10 meq PO DAILY SUPPLEMENT 02/10/23 [History Last Taken 02/10/23] Allergy/AdvReac Type Severity Reaction Status Date / Time hydrochlorothiazide AdvReac Intermediate Contributes Verified 02/20/23 02:21 to gout naproxen [From Naprosyn] AdvReac Intermediate Nausea Verified 02/20/23 02:21 aspirin AdvReac Nausea Verified 02/20/23 02:21 Family History Father , Age 72 Hypertension Mother CAD (coronary artery disease) Myocardial infarction, Onset Age: 55 Hypertension Sister CAD (coronary artery disease) Brother Cancer Surgical History History of History of cardiac catheterization History of carpal tunnel surgery of left wrist History of carpal tunnel surgery of right wrist History of left heart catheterization (11/11/20) history of uterine ablation Hx of cystoscopy Social History household members: none housing: apartment Smoking Status: Never smoker alcohol intake: never substance use type: does not use caffeine: No ROS ROS ED Constitutional Constitutional ED: Denies chills or fever(s) Eyes Eyes: Denies change in vision Cardiovascular Cardiovascular: Reports as per HPI and chest pain Respiratory/Chest Respiratory/Chest: Reports dyspnea; Denies cough Gastrointestinal Gastrointestinal: Reports vomiting; Denies abdominal pain, constipation or diarrhea Musculoskeletal Musculoskeletal: Denies arthralgias or myalgias Neurologic Neurologic: Reports headache(s); Denies paresthesias or weakness Psychiatric Psychiatric: Denies anxiety Hematologic/Lymphatic Hematologic/Lymphatic: Denies easy bleeding or easy bruising EXAM Physical Exam Const Vital Signs: 02/20/23 02:25 02/20/23 02:45 02/20/23 04:04 Temperature 98.3 F Temperature Source Temporal Pulse Rate 87 87 Respiratory Rate 18 20 H Blood Pressure 146/101 H 157/97 H Blood Pressure Mean 116 117 Pulse Ox 97 Oxygen Delivery Method Room Air Room Air Positive well nourished, well developed and obese General Appearance ED: well developed and NAD Nutritional Appearance: obese HEENT normocephalic and atraumatic Eyes PERRL Neck supple and no JVD Chest Wall inspection of chest normal Chest Narrative: No chest wall crepitus. Tenderness palpation over the sternum, no associated rash Resp normal respiratory effort and clear to auscultation bilaterally Cardio regular rate, regular rhythm and no murmurs Peripheral Pulses: radial pulses present GI normal to inspection, nondistended, normoactive bowel sounds, soft to palpation and non-tender Extremity normal to inspection General Extremety ED: Negative for edema General Extremity: Negative for edema Neuro oriented x3 Sensorium / Orientation: awake and alert Motor Exam: Negative for general weakness Psych mental status grossly normal Skin no rashes or lesions noted Skin Narrative: Healing skin tear/abrasion of the right anterior gonzalez, no secondary signs of infection or hematoma appreciated. MDM MDM MDM Narrative Medical decision making narrative: Evaluated for chest pain with associated shortness of breath. Chart review shows the patient had multiple ER visits for chest pain that generally are negative however she does have multiple risk factors as well. Will obtain cardiac workup. I feel a single troponin is negative can rule out ACS given no acute EKG changes and constant pain for 24 hours. I will obtain a D-dimer however given her recent hospitalization. Patient is given Tylenol and Lidoderm patch in the ER. She is allergic to aspirin. IF Possible would like to avoid opioids at this time. Patient's workup is remarkable for mildly elevated D-dimer. Is 1.18. Will obtain a CTA rule out pulmonary emboli. She has a mild leukocytosis of 11.8 which is stable not slightly downtrending from 02/14 where it was 12.1. Hemoglobin is stable. CMP unremarkable and at her baseline. Creatinine mildly elevated at 1.22 which again is her baseline. Lipase is normal and I do not think this chest pain is referred pancreatitis or other referred GI pain at this time. I do not think she requires a CT of her abdomen pelvis. Informed of findings. Is given Tylenol Lidoderm patch in the ER. Was discharged home in stable condition. Given return precautions. Chart view does show the patient had a stress test on 12/25/2022 which no diagnostic ischemic changes found, no cardiac dysrhythmia present, no reversible perfusion defect and LVEF of 73%. I do not think patient requires admission for repeat stress test for chest pain at this time. Lab Data Attestation: I reviewed the patient's lab results. Labs: Laboratory Results - last 24 hr 02/20/23 02:23 WBC 11.8 H RBC 3.53 L Hgb 11.6 L Hct 37.3 MCV 105.7 H MCH 32.9 H MCHC 31.1 L RDW Std Deviation 62.2 H RDW Coeff of Alfredo 15.8 H Plt Count 383 MPV 10.5 Immature Gran % (Auto) 0.500 Neut % (Auto) 68.0 Lymph % (Auto) 15.9 L Curry % (Auto) 9.1 Eos % (Auto) 5.6 H Baso % (Auto) 0.9 Absolute Neuts (auto) 8.0 H Absolute Lymphs (auto) 1.87 Nucleated RBC % 0 D-Dimer Quant (PE/DVT) 1.18 H* Sodium 142 Potassium 3.3 L Chloride 108 H Carbon Dioxide 29.0 Anion Gap 5 BUN 9 Creatinine 1.22 H Estim Creat Clear Calc 48.54 Est GFR (MDRD) Af Amer 59 L Est GFR (MDRD) Non-Af 49 L BUN/Creatinine Ratio 7.4 L Glucose 98 Calcium 9.2 Total Bilirubin 0.50 Direct Bilirubin 0.13 AST 25 ALT 20 Alkaline Phosphatase 116 Troponin I High Sens 8 Total Protein 7.8 Albumin 3.4 Globulin 4.4 H Lipase 47 Radiography Diagnostic Testing: Clinical Impression(s) from Imaging Studies Chest X-Ray 02/20/23 02:50 IMPRESSION: No significant interval change. No radiographic evidence of acute cardiopulmonary disease. Electronically Signed: James Jenkins MD at 3:18 EST , Chest CTA 02/20/23 03:15 IMPRESSION: 1. Negative for PE. 2. No thoracic aortic dissection or acute pulmonary infiltrates. 3. Extensive coronary artery calcification. Electronically Signed: James Jenkins MD at 4:48 EST , Rhythm Strip Rhythm Strip: Sinus Rhythm Rate: 85 Ectopy: None EKG Initial EKG: Attestation: I personally reviewed and interpreted this EKG as follows: Interpretation: Sinus Rhythm Comments: Sinus rhythm rate of 85 bpm Normal axis Normal intervals Nonspecific ST and T wave abnormalities Compared to prior EKG no significant change Discharge Plan Triage Chief Complaint: Chest Pain ED Provider: Candy Arreguin Dx/Rx/DC Orders Clinical Impression: Chest pain of uncertain etiology Instructions: ED Chest Pain, Uncertain Cause Prescriptions: No Action budesonide-formoterol [Symbicort] 160-4.5 mcg/actuation HFA aerosol inhaler 2 puff INHALATION BID Nurtec ODT 75 mg tablet,disintegrating 75 mg PO ONCE PRN (Reason: MIGRAINES ) Emgality Pen 120 mg/mL pen injector 120 mg subcut QMONTH Patient Comments: PT STATES THEY WERE DUE TO GET THIS A WEEK AGO BUT CANNOT AFFORD TO DO SO AT THIS TIME 9AS OF 02-10-23) Trelegy Ellipta 100-62.5-25 mcg blister with device 1 ea INHALATION DAILY lorazepam 1 mg tablet 1 mg PO BID PRN (Reason: ANXIETY ) tramadol 50 mg tablet 50 mg PO TID progesterone micronized 200 mg capsule 400 mg PO QHS ProAir RespiClick 90 mcg/actuation aerosol powdr breath activated 2 inh INHALATION 4X/DAY PRN (Reason: SHORTNESS OF BREATH ) Qty: 1 0RF gabapentin 100 mg capsule 100 mg PO QHS PRN (Reason: LEG CRAMPS) Qty: 14 0RF levofloxacin 750 mg tablet 750 mg PO DAILY Qty: 6 0RF Patient Comments: NEW RX FILLED ON 02-08-23 WITH THE DIRECTIONS OF TAKE ONE TABLET BY MOUTH ONCE DAILY . RX IS A 6 DAY SUPPLY cyclobenzaprine 5 mg tablet 5 mg PO Q8H PRN (Reason: MUSCLE SPASMS ) magnesium oxide 400 mg (241.3 mg magnesium) tablet 400 mg PO DAILY potassium chloride 10 mEq capsule, extended release 10 meq PO DAILY gabapentin 300 mg capsule 300 mg PO TID Patient Comments: PT STATES, DR. PEREZ RECENTLY UPPED THE DIRECTIONS TO ONE CAPSULE BY MOUTH THREE TIMES A DAY INSTEAD OF ONCE DAILY 9AS OF 02-10-23) levothyroxine 175 mcg tablet 175 mcg PO DAILY atorvastatin 80 mg Tablet 80 mg PO DAILY metoclopramide HCl [Reglan] 10 mg tablet 10 mg PO Q6H PRN (Reason: NAUSEA AND VOMTING ) Qty: 20 0RF citalopram 40 mg tablet 40 mg PO DAILY amlodipine 10 mg tablet 10 mg PO DAILY Qty: 90 3RF valsartan 320 mg tablet 160 mg PO BID Qty: 90 3RF Primary Care Provider: Halina Johnson Referrals: Halina Johnson, DO [Primary Care Provider] - Activity Restrictions/Additional Instructions: The cause of your chest pain is not clear however at this time your workup is largely normal. Your high-sensitivity troponin is normal (a blood marker for your heart), your EKG does not show signs of a heart attack or acute abnormality and your CT does not show signs of pneumonia, blood clots or other abnormalities. Please continue to follow-up outpatient with your primary care doctor for your chest pain but at this time I do not think you require admission to the hospital. May continue to use [id number] Lidoderm patches (I recommend 4% extra strength) as well as Tylenol for your pain. Disposition Disposition: Home, Self Care Discharge Date/Time: 02/20/23 06:20
[2023-02-20 03:12] LABS: D-Dimer Quantitative (DVT/PE) 1.18 FEU/ug/m (0.27-0.49)
[2023-02-20 03:14] LABS: AST(SGOT) 25 U/L (15-37); Alanine Aminotransfer ALT/SGPT 20 U/L (13-56); Albumin, Serum 3.4 g/dL (3.2-5.0); Alkaline Phosphatase 116 U/L (45-117); Anion Gap 5 (5-15); BUN 9 mg/dL (7-18); BUN/Creat Ratio 7.4 RATIO (10-20); Bilirubin, Direct 0.13 mg/dL (0.00-0.30); Calcium,Total 9.2 mg/dL (8.5-10.1); Chloride 108 mmol/L (98-107); Creatinine, Serum 1.22 mg/dL (0.55-1.02); EST Glomerular Filtration Rate 49 mL/min (>60); Est Glom Filt Rate - Afr Amer 59 mL/min (>60); Estimated Creatinine Clearance 48.54 ml/min; Globulin 4.4 g/dL (2.2-4.2); Glucose 98 mg/dL (74-106); Lipase 47 U/L (13-75); Potassium 3.3 mmol/L (3.5-5.1); Protein, Total 7.8 g/dL (6.4-8.2); Sodium Level 142 mmol/L (136-145); Troponin-I HS 8 pg/mL (3.0-54.0)
--- NOTE | 2023-02-20 03:15 | CT_ITS ---
EXAM: CT ANGIOGRAPHY CHEST WITHOUT AND WITH INTRAVENOUS CONTRAST CLINICAL INDICATION: chest pain, elevated dimer TECHNIQUE: Helically acquired angiography images were obtained of the chest as per pulmonary angiogram protocol without and with intravenous contrast. This CT exam was performed using one or more of the following dose reduction techniques: automated exposure control, adjustment of the mA and/or kV according to patient size, and/or use of iterative reconstruction technique. MIP reconstructed images were created and reviewed. CONTRAST: IV 100mL [id number] RADIATION DOSE: Total DLP: 1436.30 mGy-cm. COMPARISON: Portable chest radiograph of this same date. FINDINGS: PULMONARY ARTERIES: Unremarkable. Normal in caliber. No pulmonary embolism. AORTA: Thoracic aorta is minimally calcific and is normal in caliber. No aneurysm or intimal flap. GREAT VESSELS OF AORTIC ARCH: Unremarkable. Normal in caliber. No evidence of dissection. LUNGS AND PLEURAL SPACES: Unremarkable. No mass. No consolidation or edema. No pleural effusion or thickening. No pneumothorax. HEART: Heavy coronary artery calcification is present. No significant pericardial effusion. MEDIASTINUM: Unremarkable. No mediastinal or hilar adenopathy. Esophagus is unremarkable. No hiatal hernia. THYROID: Unremarkable. No thyroid lesions. BONES/JOINTS: Lower cervical degenerative disc disease. Minimal thoracic degenerative spurring. No acute osseous abnormality. No suspicious lytic or blastic abnormality. INTRAPERITONEAL SPACE: Visualized liver is prominent. Visualized spleen measures over 12 cm in cephalocaudal dimension. Visualized portions of the pancreas, adrenal glands and left renal upper pole are unremarkable. No pneumoperitoneum is noted. CT/CTA Chest W/WO Contrast IMPRESSION: 1. Negative for PE. 2. No thoracic aortic dissection or acute pulmonary infiltrates. 3. Extensive coronary artery calcification. Electronically Signed: James Jenkins MD at 4:48 EST ,
[2023-02-20 04:04] VITALS: BP 157/97; PULSE 87; RESP 20
== END 2023-02-20 06:20 | disposition home or self-care (01) ==
PROVIDERS: Emergency Provider Emergency Medicine; PCP Family Medicine; Visit Provider Emergency Medicine
DX: R07.9 Chest pain, unspecified (principal); J44.9 Chronic obstructive pulmonary disease, unspecified; E11.22 Type 2 diabetes mellitus with diabetic chronic kidney disease; E66.01 Morbid (severe) obesity due to excess calories; Z68.42 Body mass index [BMI] 45.0-49.9, adult; E78.5 Hyperlipidemia, unspecified; N18.9 Chronic kidney disease, unspecified; I12.9 Hypertensive chronic kidney disease with stage 1 through stage 4 chronic kidney disease, or unspecified chronic kidney disease; I25.10 Atherosclerotic heart disease of native coronary artery without angina pectoris; Z79.51 Long term (current) use of inhaled steroids; Z79.899 Other long term (current) drug therapy; Z82.49 Family history of ischemic heart disease and other diseases of the circulatory system
CPT/HCPCS: 71045; 71275; 80048; 80076; 83690; 84484; 85025; 85379; 93005; 99284; Q9967; A4216

== ENCOUNTER → 2023-02-22 | Outpatient (CLI) | payer MEDICARE, MEDICAID, SELFPAY ==
[2023-02-22 17:36] LABS: Anion Gap 6 (5-15); BUN 10 mg/dL (7-18); BUN/Creat Ratio 8.7 RATIO (10-20); Calcium,Total 9.3 mg/dL (8.5-10.1); Chloride 109 mmol/L (98-107); Creatinine, Serum 1.15 mg/dL (0.55-1.02); EST Glomerular Filtration Rate 53 mL/min (>60); Est Glom Filt Rate - Afr Amer 64 mL/min (>60); Glucose 116 mg/dL (74-106); Magnesium 2.3 mg/dL (1.6-2.6); Potassium 3.7 mmol/L (3.5-5.1); Sodium Level 141 mmol/L (136-145)
== END | disposition home or self-care (01) ==
LOC: MFPLAB 16:23
PROVIDERS: Nurse Practitioner Family; PCP Family Medicine; Visit Provider Family Medicine
DX: R25.2 Cramp and spasm (principal)
CPT/HCPCS: 36415; 80048; 83735

== ENCOUNTER 2023-02-24 09:24 | Emergency (ER) | payer MEDICARE, MEDICAID, SELFPAY ==
[2023-02-24 09:25] VITALS: BP 161/120; PULSE 104; RESP 14; TEMP 36.8; O2SAT 100; BMI 48.5
--- NOTE | 2023-02-24 09:37 | EX.ED.DYSGE1 ---
HPI History of Present Illness Chief Complaint: Shortness of Breath Informant: patient Narrative Narrative: Patient presents with primary complaint of nausea and vomiting. Patient was checked in with short of breath dizziness and weakness. She states she is always short of breath and it is unchanged from her baseline. She does have COPD and heart disease. She states she is coughing but that is chronic. She is always short of breath and that is chronic and it is unchanged. She does have some generalized weakness but not true dizziness vertigo or presyncope. She states her primary complaint is that for the last 2 days she has had nausea vomiting and cannot keep anything down. I find out she does have Zofran ODT tablets at home. But she puts them in her mouth and she immediately spits them out because she is too nauseated. She is not having abdominal pain. She is not having urinary symptoms. She has not had fevers but she has felt chilled. She also does have diffuse myalgias. No known exposures. However, she is in the emergency department frequently and can certainly have been exposed to illnesses here. Most recently she was here for chest pain which she is not having today. [facility] Medical History (Updated 02/24/23 @ 11:[address] Bruno Whittaker MD) Abnormal glucose Anemia Anxiety Arthritis Asthma BiPAP (biphasic positive airway pressure) dependence Cardiac murmur Celiac disease Chest pain Cholelithiasis Chronic kidney disease Constipation COPD (chronic obstructive pulmonary disease) Depression Diabetes mellitus Dietary restriction Difficulty swallowing Dyspnea on exertion Fall GERD (gastroesophageal reflux disease) Gout History of chronic back pain History of echocardiogram History of edema History of pain when walking History of stress test Hydronephrosis Hyperlipidemia Hypersomnia Hypertension Hypothyroidism Injury of head and neck Iron deficiency anemia Kidney stones Leg cramps Microcytic anemia Migraine headache Morbid obesity with BMI of 40.0-44.9, adult Non-smoker Noncompliance DAVY treated with BiPAP Post-menopausal Pulmonary embolism Restless leg syndrome Scalp hematoma Seasonal allergies Shortness of breath on exertion Syncope Thyroid disease Ureterolithiasis UTI (urinary tract infection) Vitamin B12 deficiency Vitamin D deficiency Wears glasses Home Medications citalopram 40 mg tablet 40 mg PO DAILY DEPRESSION/ANXIETY 07/27/19 [History Last Taken 02/10/23] budesonide-formoterol HFA 160 mcg-4.5 mcg/actuation aerosol inhaler (Symbicort) 2 puff inhalation BID COPD 04/02/20 [History Last Taken 02/10/23] rimegepant 75 mg disintegrating tablet (Nurtec ODT) 75 mg PO ONCE PRN MIGRAINES 06/19/20 [History Last Taken 05/04/22] fluticasone fur. 100 mcg-umeclid 62.5 mcg-vilant 25 mcg inhalat.powder (Trelegy Ellipta) 1 ea inhalation DAILY COPD 08/14/20 [History Last Taken 02/10/23] galcanezumab-gnlm 120 mg/mL subcutaneous pen injector (Emgality Pen) 120 mg subcut QMONTH MIGRAINES 08/19/21 [History Last Taken 01/06/23] lorazepam 1 mg tablet 1 mg PO BID PRN ANXIETY 05/04/22 [History Last Taken 02/08/23] progesterone micronized 200 mg capsule 400 mg PO QHS HORMONES 10/11/22 [History Last Taken 02/09/23] tramadol 50 mg tablet 50 mg PO TID PAIN 10/11/22 [History Last Taken 02/10/23] amlodipine 10 mg tablet 10 mg PO DAILY BLOOD PRESSURE #90 tabs 10/28/22 [Rx Last Taken 02/10/23] valsartan 320 mg tablet 160 mg (1/2 x 320 mg) PO BID BLOOD PRESSURE #90 tabs 10/28/22 [Rx Last Taken 02/10/23] albuterol sulfate 90 mcg/actuation breath activated powder inhaler (ProAir RespiClick) 2 inh inhalation 4X/DAY PRN SHORTNESS OF BREATH #1 ea 11/07/22 [Rx Last Taken Unknown] metoclopramide HCl 10 mg tablet (Reglan) 10 mg PO Q6H PRN NAUSEA AND VOMTING #20 tabs 01/07/23 [Rx Last Taken Unknown] gabapentin 100 mg capsule 100 mg PO QHS PRN LEG CRAMPS #14 caps 01/19/23 [Rx Last Taken Unknown] levofloxacin 750 mg tablet 750 mg PO DAILY #6 tabs 02/08/23 [Rx Last Taken 02/09/23] atorvastatin 80 mg tablet 80 mg PO DAILY CHOLESTEROL 02/10/23 [History Last Taken 02/10/23] cyclobenzaprine 5 mg tablet 5 mg PO Q8H PRN MUSCLE SPASMS 02/10/23 [History Last Taken 02/08/23] gabapentin 300 mg capsule 300 mg PO TID NERVE PAIN 02/10/23 [History Last Taken 02/10/23] levothyroxine 175 mcg tablet 175 mcg PO DAILY THYROID 02/10/23 [History Last Taken 02/10/23] magnesium oxide 400 mg (241.3 mg magnesium) tablet 400 mg PO DAILY SUPPLEMENT 02/10/23 [History Last Taken 02/09/23] potassium chloride 10 mEq capsule,extended release 10 meq PO DAILY SUPPLEMENT 02/10/23 [History Last Taken 02/10/23] promethazine 25 mg rectal suppository (Promethegan) 25 mg CO Q6H PRN PRN Nausea #12 ea 02/24/23 [Rx Last Taken Unknown] Allergy/AdvReac Type Severity Reaction Status Date / Time hydrochlorothiazide AdvReac Intermediate Contributes Verified 02/20/23 02:21 to gout naproxen [From Naprosyn] AdvReac Intermediate Nausea Verified 02/20/23 02:21 aspirin AdvReac Nausea Verified 02/20/23 02:21 Family History Father , Age 72 Hypertension Mother CAD (coronary artery disease) Myocardial infarction, Onset Age: 55 Hypertension Sister CAD (coronary artery disease) Brother Cancer Surgical History History of History of cardiac catheterization History of carpal tunnel surgery of left wrist History of carpal tunnel surgery of right wrist History of left heart catheterization (11/11/20) history of uterine ablation Hx of cystoscopy Social History household members: none housing: apartment Smoking Status: Never smoker alcohol intake: never substance use type: does not use caffeine: No ROS ROS ED ROS Narrative A complete review of systems was performed and is negative except as documented in the history of present illness. Some specific details below. Constitutional: No recent fevers but she has occasionally felt chilled. EYE: No visual complaints or pain. No discharge or redness ENT: No difficulty swallowing. No swelling. No pain. No GERD. CV: No chest pain or palpitations. Although she was here recently for this she is not having it now. Respiratory: No new or change in her baseline dyspnea. No hemoptysis. No difficulty taking breaths. She she might have a slight increased cough over baseline GI: Please see history of present illness. She has nausea and vomiting. No blood. Possibly softer stools but not diarrhea. : No frequency dysuria or hematuria. Musculoskeletal: No recent trauma. She does have some myalgias and arthralgias that are different than her baseline aches and pains. Skin: No rash. Nondiaphoretic. Neuro: No weakness or numbness. Endocrine: No polyuria or polydipsia. EXAM Physical Exam Narrative Exam Narrative: CONSTITUTIONAL: Patient is nontoxic in appearance. The patient looks comfortable. HEENT: No notable trauma. Mucous membranes are still moist. No sinus tenderness. No indication of pain with swallowing. EYES: No conjunctival injection. No proptosis. CARDIOVASCULAR: Minimally tachycardic rate. Regular rhythm. No notable murmur. No JVD. RESPIRATORY: No respiratory distress. Breathing is unlabored. No wheezes. No rhonchi. No rales. No pain with a deep breath. Overall pulmonary exam is relatively normal and her saturations are normal at 100% on room air showing no hypoxia GASTROINTESTINAL: Obesity does limit exam. But she does have bowel sounds that sound normal. I am not getting any areas of tenderness on exam. Pressing does not worsen her nausea. GENITOURINARY: No tenderness over the bladder. No CVA tenderness. MUSCULOSKELETAL: Atraumatic. NEUROLOGICAL: Patient is alert and appropriate. No focal deficit noted. SKIN: No noted rashes. No diaphoresis. PSYCHIATRIC: Patient is calm. Mood is appropriate. Const Vital Signs: 02/24/23 09:25 02/24/23 09:38 02/24/23 09:40 Temperature 98.2 F Temperature Source Temporal Pulse Rate 104 H 107 H Respiratory Rate 14 19 H Respiratory Effort Normal Non-Labored Respiratory Depth Normal Respiratory Pattern Normal Blood Pressure 161/120 H 155/94 H Blood Pressure Mean 133 114 Pulse Ox 100 96 Oxygen Delivery Method Room Air Room Air Room Air MDM MDM MDM Narrative Medical decision making narrative: Patient RSV is negative. Patient's COVID is negative. Patient's influenza is negative. Patient CBC shows nonspecific elevation of white count but normal hemoglobin and platelet Knoop patient's electrolytes show mild elevation in the creatinine but it is her baseline. Glucose is reasonable at 142. Patient's liver function test show no acute process. Patient's urine is not a clean-catch but there is no sign of infection. Patient was given Zofran here. She is for better she has Zofran at home but spits it out before it dissolves. We discussed letting the medicine work. I will send her home with Phenergan suppositories. Her abdomen is still benign. I do not think she requires admission at this time. There was discussion about frequent use of the ER. She evidently has care provider come in to help her for part of the day but not 24 hours a day. She admits she gets lonely when her provider is in there. We discussed transitioning to a independent living or possible higher care environment and she is not interested in this. Lab Data Attestation: I reviewed the patient's lab results. Labs: Laboratory Results - last 24 hr 02/24/23 02/24/23 10:23 10:40 WBC 13.4 H RBC 3.74 L Hgb 12.2 Hct 39.5 MCV 105.6 H MCH 32.6 H MCHC 30.9 L RDW Std Deviation 60.7 H RDW Coeff of Alfredo 15.5 H Plt Count 408 MPV 9.6 Immature Gran % (Auto) 0.500 Neut % (Auto) 72.6 H Lymph % (Auto) 14.0 L [place] % (Auto) 7.7 Eos % (Auto) 4.5 Baso % (Auto) 0.7 Absolute Neuts (auto) 9.7 H Absolute Lymphs (auto) 1.88 Nucleated RBC % 0 Sodium 139 Potassium 3.7 Chloride 107 Carbon Dioxide 23.0 Anion Gap 9 BUN 10 Creatinine 1.17 H Estim Creat Clear Calc 50.61 Est GFR (MDRD) Af Amer 62 Est GFR (MDRD) Non-Af 52 L BUN/Creatinine Ratio 8.5 L Glucose 142 H Calcium 9.6 Total Bilirubin 0.40 AST 18 ALT 19 Alkaline Phosphatase 119 H Total Protein 7.7 Albumin 3.5 Globulin 4.2 Albumin/Globulin Ratio 0.8 L Urine Color Yellow Urine Clarity Sl. Cloudy Urine pH 6.0 Ur Specific [place] 1.015 Urine Protein Negative Urine Glucose (UA) Normal Urine Ketones Negative Urine Occult Blood Negative Urine Nitrite Negative Urine Bilirubin Negative Urine Urobilinogen Normal Ur Leukocyte Esterase 25 H Urine RBC 0 SEEN Urine WBC 0-5 SEEN Ur Squamous Epith Cells 5-10 SEEN Urine Bacteria 1+ Urine Mucus 0 SEEN EKG Initial EKG: Comments: My independent interpretation of the patient's EKG shows normal sinus rhythm with overall rate at 99. Nonspecific ST and T wave changes. No ectopy. CO interval, QRS duration are normal. QTc is a bit long. Discharge Plan Triage Chief Complaint: Shortness of Breath ED Provider: Bruno Whittaker Dx/Rx/DC Orders Clinical Impression: History of COPD, Nausea & vomiting Instructions: ED Diet Vomiting Diarrhea Prescriptions: New promethazine [Promethegan] 25 mg suppository 25 mg CO Q6H PRN PRN (Reason: Nausea) Qty: 12 0RF No Action budesonide-formoterol [Symbicort] 160-4.5 mcg/actuation HFA aerosol inhaler 2 puff INHALATION BID Nurtec ODT 75 mg tablet,disintegrating 75 mg PO ONCE PRN (Reason: MIGRAINES ) Emgality Pen 120 mg/mL pen injector 120 mg subcut QMONTH Patient Comments: PT STATES THEY WERE DUE TO GET THIS A WEEK AGO BUT CANNOT AFFORD TO DO SO AT THIS TIME 9AS OF 02-10-23) Trelegy Ellipta 100-62.5-25 mcg blister with device 1 ea INHALATION DAILY lorazepam 1 mg tablet 1 mg PO BID PRN (Reason: ANXIETY ) tramadol 50 mg tablet 50 mg PO TID progesterone micronized 200 mg capsule 400 mg PO QHS ProAir RespiClick 90 mcg/actuation aerosol powdr breath activated 2 inh INHALATION 4X/DAY PRN (Reason: SHORTNESS OF BREATH ) Qty: 1 0RF gabapentin 100 mg capsule 100 mg PO QHS PRN (Reason: LEG CRAMPS) Qty: 14 0RF levofloxacin 750 mg tablet 750 mg PO DAILY Qty: 6 0RF Patient Comments: NEW RX FILLED ON 02-08-23 WITH THE DIRECTIONS OF TAKE ONE TABLET BY MOUTH ONCE DAILY . RX IS A 6 DAY SUPPLY cyclobenzaprine 5 mg tablet 5 mg PO Q8H PRN (Reason: MUSCLE SPASMS ) magnesium oxide 400 mg (241.3 mg magnesium) tablet 400 mg PO DAILY potassium chloride 10 mEq capsule, extended release 10 meq PO DAILY gabapentin 300 mg capsule 300 mg PO TID Patient Comments: PT STATES, DR. PEREZ RECENTLY UPPED THE DIRECTIONS TO ONE CAPSULE BY MOUTH THREE TIMES A DAY INSTEAD OF ONCE DAILY 9AS OF 02-10-23) levothyroxine 175 mcg tablet 175 mcg PO DAILY atorvastatin 80 mg Tablet 80 mg PO DAILY metoclopramide HCl [Reglan] 10 mg tablet 10 mg PO Q6H PRN (Reason: NAUSEA AND VOMTING ) Qty: 20 0RF citalopram 40 mg tablet 40 mg PO DAILY amlodipine 10 mg tablet 10 mg PO DAILY Qty: 90 3RF valsartan 320 mg tablet 160 mg PO BID Qty: 90 3RF Primary Care Provider: Halina Johnson Referrals: Halina Johnson, [Primary Care Provider] - 3-5 Days Disposition Disposition: Home, Self Care
[2023-02-24 09:38] VITALS: BP 155/94; PULSE 107; RESP 19; O2SAT 96
[2023-02-24 09:40] VITALS: O2SAT 97
[2023-02-24 10:26] LABS: Absolute Lymphocyte Count 1.88 X10^3/uL (0.83-4.51); Absolute Neutrophil Count 9.7 X10^3/uL (2.0-7.7); Basophil% 0.7 % (0-1); Eosinophils% 4.5 % (0-5); Hematocrit 39.5 % (37-47); Hemoglobin 12.2 g/dL (12.0-15.0); Lymphocyte # 1.88 X10^3/ul (0.83-4.51); Mean Corp Hgb Conc 30.9 g/dL (32-36); Mean Corpuscular Hgb 32.6 pg (27.0-32.0); Mean Corpuscular Volume 105.6 fL (81-99); Mean Platelet Vol. 9.6 fl (6.2-12.0); Monocyte# 1.03 X10^3/uL; Monocyte% 7.7 % (0-10); NRBC Flagged by Analyzer 0 % (0-5); Neutrophil # 9.71 X10^3/uL (2.7-7.7); Neutrophil % 72.6 % (47-70); Platelet Count 408 K/mm3 (150-450); RBC Distribution Width CV 15.5 % (11.6-14.6); RBC Distribution Width SD 60.7 fl (35.1-43.9); Red Blood Count 3.74 M/mm3 (4.2-5.4); White Blood Count 13.4 K/mm3 (4.4-11.0)
[2023-02-24] MEDS: Ondansetron 4 MG/2 ML Vial IV (10:38)
[2023-02-24] MEDS: 0.9% Normal Saline (1000mL) 1,000 ML 1000 ML IV (10:39)
[2023-02-24 10:42] LABS: ALB/GLOB Ratio 0.8 RATIO (0.9-2.4); AST(SGOT) 18 U/L (15-37); Alanine Aminotransfer ALT/SGPT 19 U/L (13-56); Albumin, Serum 3.5 g/dL (3.2-5.0); Alkaline Phosphatase 119 U/L (45-117); Anion Gap 9 (5-15); BUN 10 mg/dL (7-18); BUN/Creat Ratio 8.5 RATIO (10-20); Calcium,Total 9.6 mg/dL (8.5-10.1); Chloride 107 mmol/L (98-107); Creatinine, Serum 1.17 mg/dL (0.55-1.02); EST Glomerular Filtration Rate 52 mL/min (>60); Est Glom Filt Rate - Afr Amer 62 mL/min (>60); Estimated Creatinine Clearance 50.61 ml/min; Globulin 4.2 g/dL (2.2-4.2); Glucose 142 mg/dL (74-106); Potassium 3.7 mmol/L (3.5-5.1); Protein, Total 7.7 g/dL (6.4-8.2); Sodium Level 139 mmol/L (136-145)
[2023-02-24 10:45] LABS: Mucous, Urine 0 SEEN /hpf (<or=2+); Red Blood Cells-Urine 0 SEEN /hpf (0-5)
[2023-02-24 10:54] LABS: Color, Urine Yellow (Yellow); Glucose, Dipstick Normal (Normal); Ketone-Dipstick Negative (Negative); Leukocyte Esterase-Dipstick 25 /ul (Negative); Nitrite-Dipstick Negative (Negative); Occult Blood-Urine Negative /ul (Negative); Protein-Dipstick Negative (Negative); Specific Gravity, Urine 1.015 (1.002-1.030); Urine Bilirubin Dipstick Negative (Negative); Urine Clarity Sl. Cloudy (Clear); Urine Urobilinogen Normal (Normal)
[2023-02-24 11:01] LABS: Bacteria 1+ /hpf (None Seen); Squamous Epithelial Cells - UA 5-10 SEEN /hpf (5-10); White Blood Cells 0-5 SEEN /hpf (0-5)
[2023-02-24 11:49] VITALS: BP 149/73; PULSE 84; RESP 17; O2SAT 96
== END 2023-02-24 11:50 | disposition home or self-care (01) ==
PROVIDERS: Emergency Provider Emergency Medicine; PCP Family Medicine; Visit Provider Emergency Medicine
DX: R11.2 Nausea with vomiting, unspecified (principal); J44.9 Chronic obstructive pulmonary disease, unspecified; E78.5 Hyperlipidemia, unspecified; N18.9 Chronic kidney disease, unspecified; Z79.899 Other long term (current) drug therapy; Z86.711 Personal history of pulmonary embolism
CPT/HCPCS: 80053; 81001; 85025; 87631; 93005; 99282; J7030; A4216; J2405

== ENCOUNTER 2023-02-28 08:25 | Emergency (ER) | payer MEDICARE, MEDICAID, SELFPAY ==
[2023-02-28 08:27] VITALS: BP 149/97; PULSE 97; RESP 14; TEMP 36.1; O2SAT 96; BMI 49.2
--- NOTE | 2023-02-28 08:44 | ED.VIS.BACK ---
HPI History of Present Illness Chief Complaint: Back Informant: patient Narrative Narrative: Patient presents with back pain. Patient has chronic back pain. She sees Dr. Lieberman for this. She takes tramadol and Vicodin and occasional Tylenol. She is set to have carpal tunnel surgery on . She was told to stop her pain meds 5 days before this. This is likely to make it so her meds will be more effective. She has not had any of her pain meds for 2 days. She states the pain that is normally in her back is now worse again. It is not different. She has no focal weakness. No numbness. She states she gets tingling in her feet all the time but that is not new or different. Last time she had any fall or stumble was 2 weeks ago. It was not hurting until she stopped pain meds. She denies fevers or chills. She is not vomiting. No trouble breathing today even though she has chronic breathing issues. She states it is the same as normal. [facility] Medical History Abnormal glucose Anemia Anxiety Arthritis Asthma BiPAP (biphasic positive airway pressure) dependence Cardiac murmur Celiac disease Chest pain Cholelithiasis Chronic kidney disease Constipation COPD (chronic obstructive pulmonary disease) Depression Diabetes mellitus Dietary restriction Difficulty swallowing Dyspnea on exertion Fall GERD (gastroesophageal reflux disease) Gout History of chronic back pain History of echocardiogram History of edema History of pain when walking History of stress test Hydronephrosis Hyperlipidemia Hypersomnia Hypertension Hypothyroidism Injury of head and neck Iron deficiency anemia Kidney stones Leg cramps Microcytic anemia Migraine headache Morbid obesity with BMI of 40.0-44.9, adult Non-smoker Noncompliance DAVY treated with BiPAP Post-menopausal Pulmonary embolism Restless leg syndrome Scalp hematoma Seasonal allergies Shortness of breath on exertion Syncope Thyroid disease Ureterolithiasis UTI (urinary tract infection) Vitamin B12 deficiency Vitamin D deficiency Wears glasses Home Medications citalopram 40 mg tablet 40 mg PO DAILY DEPRESSION/ANXIETY 07/27/19 [History Last Taken 02/10/23] budesonide-formoterol HFA 160 mcg-4.5 mcg/actuation aerosol inhaler (Symbicort) 2 puff inhalation BID COPD 04/02/20 [History Last Taken 02/10/23] rimegepant 75 mg disintegrating tablet (Nurtec ODT) 75 mg PO ONCE PRN MIGRAINES 06/19/20 [History Last Taken 05/04/22] fluticasone fur. 100 mcg-umeclid 62.5 mcg-vilant 25 mcg inhalat.powder (Trelegy Ellipta) 1 ea inhalation DAILY COPD 08/14/20 [History Last Taken 02/10/23] galcanezumab-gnlm 120 mg/mL subcutaneous pen injector (Emgality Pen) 120 mg subcut QMONTH MIGRAINES 08/19/21 [History Last Taken 01/06/23] lorazepam 1 mg tablet 1 mg PO BID PRN ANXIETY 05/04/22 [History Last Taken 02/08/23] progesterone micronized 200 mg capsule 400 mg PO QHS HORMONES 10/11/22 [History Last Taken 02/09/23] tramadol 50 mg tablet 50 mg PO TID PAIN 10/11/22 [History Last Taken 02/10/23] amlodipine 10 mg tablet 10 mg PO DAILY BLOOD PRESSURE #90 tabs 10/28/22 [Rx Last Taken 02/10/23] valsartan 320 mg tablet 160 mg (1/2 x 320 mg) PO BID BLOOD PRESSURE #90 tabs 10/28/22 [Rx Last Taken 02/10/23] albuterol sulfate 90 mcg/actuation breath activated powder inhaler (ProAir RespiClick) 2 inh inhalation 4X/DAY PRN SHORTNESS OF BREATH #1 ea 11/07/22 [Rx Last Taken Unknown] metoclopramide HCl 10 mg tablet (Reglan) 10 mg PO Q6H PRN NAUSEA AND VOMTING #20 tabs 01/07/23 [Rx Last Taken Unknown] gabapentin 100 mg capsule 100 mg PO QHS PRN LEG CRAMPS #14 caps 01/19/23 [Rx Last Taken Unknown] levofloxacin 750 mg tablet 750 mg PO DAILY #6 tabs 02/08/23 [Rx Last Taken 02/09/23] atorvastatin 80 mg tablet 80 mg PO DAILY CHOLESTEROL 02/10/23 [History Last Taken 02/10/23] cyclobenzaprine 5 mg tablet 5 mg PO Q8H PRN MUSCLE SPASMS 02/10/23 [History Last Taken 02/08/23] gabapentin 300 mg capsule 300 mg PO TID NERVE PAIN 02/10/23 [History Last Taken 02/10/23] levothyroxine 175 mcg tablet 175 mcg PO DAILY THYROID 02/10/23 [History Last Taken 02/10/23] magnesium oxide 400 mg (241.3 mg magnesium) tablet 400 mg PO DAILY SUPPLEMENT 02/10/23 [History Last Taken 02/09/23] potassium chloride 10 mEq capsule,extended release 10 meq PO DAILY SUPPLEMENT 02/10/23 [History Last Taken 02/10/23] promethazine 25 mg rectal suppository (Promethegan) 25 mg MA Q6H PRN PRN Nausea #12 ea 02/24/23 [Rx Last Taken Unknown] Allergy/AdvReac Type Severity Reaction Status Date / Time hydrochlorothiazide AdvReac Intermediate Contributes Verified 02/28/23 08:29 to gout naproxen [From Naprosyn] AdvReac Intermediate Nausea Verified 02/28/23 08:29 aspirin AdvReac Nausea Verified 02/28/23 08:29 Family History Father , Age 72 Hypertension Mother CAD (coronary artery disease) Myocardial infarction, Onset Age: 55 Hypertension Sister CAD (coronary artery disease) Brother Cancer Surgical History History of History of cardiac catheterization History of carpal tunnel surgery of left wrist History of carpal tunnel surgery of right wrist History of left heart catheterization (11/11/20) history of uterine ablation Hx of cystoscopy Social History household members: none housing: apartment Smoking Status: Never smoker alcohol intake: never substance use type: does not use caffeine: No ROS ROS ED Constitutional Constitutional ED: Denies chills, fever(s) or sweats Eyes Eyes: Denies change in vision ENT ENT ED: Denies rhinorrhea or sore throat Cardiovascular Cardiovascular: Denies chest pain, palpitations or racing heartbeat Respiratory/Chest Respiratory/Chest: Reports other Details: She has some baseline dyspnea but is no difference. She is not coughing. ; Denies dyspnea Gastrointestinal Gastrointestinal: Denies abdominal pain, diarrhea, nausea or vomiting Genitourinary Genitourinary ED: Denies dysuria Musculoskeletal Musculoskeletal: Reports back pain Integumentary Denies abscess, Abrasions or rash Neurologic Neurologic: Reports paresthesias; Denies headache(s) or weakness Hematologic/Lymphatic Hematologic/Lymphatic: Denies easy bleeding or easy bruising Allergic/Immunologic Allergic/Immunologic ED: Denies urticaria EXAM Physical Exam Narrative Exam Narrative: General: Patient awake alert sitting in bed. No acute distress. She carries on a normal conversation. HEENT shows no sign of trauma. Mucous membranes are moist. Eyes have normal range of motion. No photophobia. Neck is supple. Heart does sound regular. I hear no murmur Lungs are clear bilaterally. She is not coughing. She takes easy breaths. Saturations are normal at 96% on room air showing no hypoxia. Abdomen is obese but otherwise benign. She has normal bowel sounds. No tenderness on exam. Back has some mild nonfocal lumbar area tenderness. But it is not even central it is just more of a diffuse soreness. It is sore with moving and twisting. Extremities she has some chronic slight edema. She has a Band-Aid on a small abrasion on the left lower medial gonzalez but no sign of infection. There is no weakness. There is no sensory loss despite having some paresthesias all the time. Const Vital Signs: 02/28/23 08:27 Temperature 97.0 F L Temperature Source Temporal Pulse Rate 97 Respiratory Rate 14 Blood Pressure 149/97 H Blood Pressure Mean 114 Pulse Ox 96 Oxygen Delivery Method Room Air MDM MDM MDM Narrative Medical decision making narrative: I do not think this patient needs a workup at this time. She has what is her normal pain that has resurfaced when she stopped her pain meds for the last day and 1/2 to 2 days. I explained to the patient that she has a couple options. She can either take her pain meds now and deal with slightly increased pain after surgery of her wrist. Or she can deal with the pain on her back now and hold these pain meds for a week. I cannot make this decision for her. I explained that there are risks and benefits of both decisions. I do not think she needs imaging. I do not think she needs blood work. I think she is safe to go home. She has a pain management physician to manage this long-term. Discharge Plan Triage Chief Complaint: Back ED Provider: Bruno Whittaker Dx/Rx/DC Orders Clinical Impression: Exacerbation of chronic back pain, Stops taking medication too soon Instructions: ED Back Pain (Acute or Chronic) Prescriptions: No Action budesonide-formoterol [Symbicort] 160-4.5 mcg/actuation HFA aerosol inhaler 2 puff INHALATION BID Nurtec ODT 75 mg tablet,disintegrating 75 mg PO ONCE PRN (Reason: MIGRAINES ) Emgality Pen 120 mg/mL pen injector 120 mg subcut QMONTH Patient Comments: PT STATES THEY WERE DUE TO GET THIS A WEEK AGO BUT CANNOT AFFORD TO DO SO AT THIS TIME 9AS OF 02-10-23) Trelegy Ellipta 100-62.5-25 mcg blister with device 1 ea INHALATION DAILY lorazepam 1 mg tablet 1 mg PO BID PRN (Reason: ANXIETY ) tramadol 50 mg tablet 50 mg PO TID progesterone micronized 200 mg capsule 400 mg PO QHS ProAir RespiClick 90 mcg/actuation aerosol powdr breath activated 2 inh INHALATION 4X/DAY PRN (Reason: SHORTNESS OF BREATH ) Qty: 1 0RF gabapentin 100 mg capsule 100 mg PO QHS PRN (Reason: LEG CRAMPS) Qty: 14 0RF levofloxacin 750 mg tablet 750 mg PO DAILY Qty: 6 0RF Patient Comments: NEW RX FILLED ON 02-08-23 WITH THE DIRECTIONS OF TAKE ONE TABLET BY MOUTH ONCE DAILY . RX IS A 6 DAY SUPPLY cyclobenzaprine 5 mg tablet 5 mg PO Q8H PRN (Reason: MUSCLE SPASMS ) magnesium oxide 400 mg (241.3 mg magnesium) tablet 400 mg PO DAILY potassium chloride 10 mEq capsule, extended release 10 meq PO DAILY gabapentin 300 mg capsule 300 mg PO TID Patient Comments: PT STATES, DR. PEREZ RECENTLY UPPED THE DIRECTIONS TO ONE CAPSULE BY MOUTH THREE TIMES A DAY INSTEAD OF ONCE DAILY 9AS OF 02-10-23) levothyroxine 175 mcg tablet 175 mcg PO DAILY atorvastatin 80 mg Tablet 80 mg PO DAILY metoclopramide HCl [Reglan] 10 mg tablet 10 mg PO Q6H PRN (Reason: NAUSEA AND VOMTING ) Qty: 20 0RF promethazine [Promethegan] 25 mg suppository 25 mg MA Q6H PRN PRN (Reason: Nausea) Qty: 12 0RF citalopram 40 mg tablet 40 mg PO DAILY amlodipine 10 mg tablet 10 mg PO DAILY Qty: 90 3RF valsartan 320 mg tablet 160 mg PO BID Qty: 90 3RF Primary Care Provider: Halina Johnson Referrals: Oscar Lieberman MD [Med Staff - Active Staff] - As Needed Halina Johnson DO [Primary Care Provider] - As Needed Disposition Disposition: Home, Self Care
[2023-02-28] MEDS: Acetaminophen 500 MG Tablet 1000 MG PO (09:02)
[2023-02-28 09:11] VITALS: RESP 16
--- OUTSIDE RECORDS SUMMARY | 2023-02-28 09:15 | XMS RPT_ITS | CCD ---
Author Name Unknown Address [address] [place] [address] Organization [facility] Care Team Providers Care Ticket Writer Name Role Phone Ysabel Lutz Primary Care Provider KAREN OBRIEN - YSABEL MOREL Primary Care Phys ician Milan Cervantes Primary Care Provider Ysabel Lutz CNP Primary Care Provider Clifton Sanchez Chi Primary Care Provider [phone] DR LUZ ELENA SANCHEZ MD Primary Care Physician PHYSICIAN, NONE Primary Care Physician Unavailab le Unavailable Primary Care Provider Unavailabl e Aram Johnson DO Primary Care Provider [phone] PHYSICIAN, NOT RECORDED Primary Care Physician U navailable Aram Johnson DO Primary Care Provider [facility] Primary Care Unavailable YSABEL LUTZ Primary Care Unavailable YSABEL LUTZ Primary Care Unavailable WHITLEY HSIEH Referring Unavailable HOME, [facility] Primary Care Unavailable ARAM JOHNSON Primary Care Unavailable WHITLEY HSIEH Referring Unavailable ARAM JOHNSON Primary Care Unavailable ARAM JOHNSON Primary Care Unavailable ARAM JOHNSON Primary Care Unavailable YSABEL LUTZ Primary Care Unavailable YSABEL LUTZ Primary Care Unavailable SATNAM RODRIGUEZ Referring Unavailable ARAM JOHNSON Primary Care Unavailable [facility], [facility] Primary Care Unavailable DION ESCOBAR R Referring Unavailable [facility] Primary Care Unavailable [facility], [facility] Primary Care Unavailable [facility] Primary Care Unavailable ARAM JOHNSON DO Primary Care Physician PHYSICIAN, NONE Primary Care Unavailable RADHIKA GONZALEZ, SHEELA Liu Attending Unavailable RADHIKA GONZALEZ, SHEELA Liu Attending Unavailable PHYSICIAN, NOT RECORDED Primary Care Unavaila kylie PHILLIPS DO, AUDRA Attending Unavailable ARIAN DO, ARAM Primary Care Unavailable PHYSICIAN, NOT RECORDED Primary Care Unavaila kylie MOLINA DO, FABIAN Attending Unavailable ALEX TEMPLETON MD Attending Unavailable ARIAN MORALEZ, ARAM Primary Care Unavailable LURDES MORALEZ, DR DEBBIE Zelaya Attending Unavailtamy JOHNSON DO, ARAM Primary Care Unavailable ARIAN MORALEZ, ARAM Primary Care Unavailable GREGORY GONZALEZ, DR COTTER Attending Unavailtamy MAI MD, DR DAQUAN Crook Attending Unavailatmy JOHNSON DO, ARAM Primary Care Unavailable RANDOLPH GONZALEZ, DR INA Liu Attending Unavailable HOME GONZALEZ, DR LAGUNA Primary Care Unavailable KAREN OBRIEN - LOGGING SHOVEL OPERATOR, YSABEL Lucas Attending U nell Carter LOGGING SHOVEL OPERATOR, YSABEL Lucas Primary Care U nell SANCHEZ MD, DR LAGUNA Primary Care Unavailable DNO MORALEZ, DR OMEGA Liu Attending Unavailable HOME GONZALEZ, DR LAGUNA Primary Care Unavailable DON MORALEZ, DR OMEGA Liu Attending Unavailable Allergies Allergy Classification Reported Allergen(s) Allergy Type Date of Onset Reaction(s) Facility (1 source) Aluminum aspirin Drug Allergy 04-23-2020 Nausea Only [facility] Work Phone: (15 sources) hydroCHLOROthiaz rosa maria; Translations: [HYDROCHLOROTHIA ZIDE] Drug Allergy 09-28-2019 Unknown [facility] Work Phone: (20 sources) Naproxen; Translations: [naproxen] Drug Allergy 11-05-2018 Vomiting [facility] Work Phone: (12 sources) Aspirin; Translations: [aspirin] Drug Allergy NAUSEA [facility] (16 sources) Salicylate product; Translations: [SALICYLATES] Propensity to adverse reactions 12-21-2007 [facility] Work Phone: Medications Current Medications Medication Drug Class(es) Dates Sig (Normalized) Sig (Original) acetaminophen 500 mg oral tablet (20 sources) Start: 06-09-2021 take 3 tablets by mouth every six hours as needed for pain Tylenol Extra Strength 500 mg oral tablet 3 tab, Oral, q6hr, PRN as needed for pain, 0 Refill(s) Start Date: 06/09/21 Status: Ordered Completed/Discontinued Medications Medication Drug Class(es) Dates Sig (Normalized) Sig (Original) acetaminophen 325 mg / HYDROcodone bitartrate 5 mg oral tablet (3 sources) Opioid Agonist Start: 02-17-2023 End: 02-20-2023 take 1 tablet by mouth every six hours as needed for pain [place] 325- 5 mg oral tablet Dose = 1 tab(s), Oral, q6h, PRN for pain, # 10 tab(s), 0 Refill(s), Headache, 129.4 Start Date: 02/17/23 Stop Date: 02/20/23 Status: Ordered amLODIPine 10 mg oral tablet (13 sources) Dihydropyridine Calcium Channel Shad Start: 05-20-2022 End: 07-19-2022 amLODIPine 10 mg oral tablet Dose : 10 mg = 1 tab(s), Oral, qDay, # 30 tab(s), 1 Refill(s), Pharmacy: [id number], 162, cm, 05/20/22 15:06:00 EDT, Height, kg, 05/20/22 15:06:00 EDT, Dosing Weight Start Date: 05/20/22 Stop Date: 07/19/22 Status: Ordered Problems Active Problems Problem Classification Problem Date Documented Date Episodic/Chronic Abdominal pain (1 source) Abdominal pain; Translations: [Unspecified abdominal pain] Onset: 3 Episodic Anxiety disorders (13 sources) Mixed anxiety and depressive disorder; Translations: [Panic disorder without agoraphobia] Onset: 3 11-25-2018 Chronic Asthma (13 sources) Asthma; Translations: [Exacerbation of asthma] 03-17-2020 Chronic Biliary tract disease (12 sources) Biliary calculus 04-21-2021 Episodic Chronic obstructive pulmonary disease and bronchiectasis (1 source) Bronchitis; Translations: [Bronchitis, not specified as acute or chronic] 11-16-2022 Episodic Conditions associated with dizziness or vertigo (11 sources) Dizziness and giddiness; Translations: [Dizziness and giddiness] Onset: 3 09-23-2021 Episodic Deficiency and other anemia (12 sources) Iron deficiency anemia 07-17-2019 Episodic Deficiency and other anemia (9 sources) Macrocytic anemia 02-16-2022 Episodic Diabetes mellitus without complication (12 sources) Type 2 diabetes mellitus 01-28-2020 Chronic Disorders of lipid metabolism (12 sources) Hypercholesterolemia 05-09-2020 Chronic Esophageal disorders (12 sources) Gastroesophageal reflux disease 01-28-2020 Chronic Essential hypertension (12 sources) Hypertensive disorder 12-25-2018 Chronic Fluid and electrolyte disorders (1 source) Hypokalemia; Translations: [Hypokalemia] Onset: 2 Episodic Fracture of lower limb (1 source) Unspecified fracture of shaft of unspecified fibula, initial encounter for closed fracture; Translations: [Unspecified fracture of shaft of unspecified fibula, initial encounter for closed fracture] Onset: 3 Episodic Gout and other crystal arthropathies (12 sources) Gout 01-02-2019 Chronic Past or Other Problems Problem Classification Problem Date Documented Da te Episodic/Chronic E Codes: Fall (2 sources) Fall; Translations: [Unspecified fall, initial encounter] Onset: 07-28-2022 Episodic Other injuries and conditions due to external causes (1 source) Unspecified injury of left ankle, initial encounter; Translations: [Left ankle injury, initial encounter] Onset: 08-05-2022 Episodic Results Test Name Value Interpretation Reference Range Facil ity Vital Signs Date Time Vital Sign Value Performing Clinician Facility 02-27-2023 07:15-0500 Diastolic Blood Pressure Non-Invasive 87 mm[Hg] ALEX TEMPLETON MD [facility] 02-27-2023 07:15-0500 Heart rate 102 /min ALEX TEMPLETON MD [facility] 02-27-2023 07:15-0500 Respiratory rate 18 /min ALEX TEMPLETON MD [facility] 02-27-2023 07:15-0500 Systolic Blood Pressure Non-Invasive 129 mm[Hg] ALEX TEMPLETON MD [facility] 02-27-2023 06:20-0500 Body temperature 97.88 [degF] ALEX TEMPLETON MD [facility] 02-27-2023 06:20-0500 Diastolic Blood Pressure Non-Invasive 107 mm[Hg] ALEX TEMPLETON MD [facility] 02-27-2023 06:20-0500 Heart rate 103 /min ALEX TEMPLETON MD [facility] 02-27-2023 06:20-0500 Respiratory rate 14 /min ALEX TEMPLETON MD [facility] 02-27-2023 06:20-0500 Systolic Blood Pressure Non-Invasive 146 mm[Hg] ALEX TEMPLETON MD [facility] 02-24-2023 17:16-0500 Diastolic Blood Pressure Non-Invasive 95 mm[Hg] DR DEBBIE CHATMAN DO [facility] 02-24-2023 17:16-0500 Heart rate 94 /min DR DEBBIE CHATMAN DO [facility] 02-24-2023 17:16-0500 Respiratory rate 22 /min DR DEBBIE CHATMAN DO [facility] 02-24-2023 17:16-0500 Systolic Blood Pressure Non-Invasive 170 mm[Hg] DR DEBBIE CHATMAN DO [facility] 02-24-2023 16:35-0500 Body height 162.[address] DEBBIE CHATMAN DO [facility] 02-24-2023 16:35-0500 Body temperature 98.06 [degF] DR DEBBIE CHATMAN DO [facility] 02-24-2023 16:35-0500 Body weight [address] DEBBIE CHATMAN DO [facility] 02-24-2023 16:35-0500 Diastolic Blood Pressure Non-Invasive 114 mm[Hg] DR DEBBIE CHATMAN DO [facility] 02-24-2023 16:35-0500 Heart rate 102 /min DR DEBBIE CHATMAN DO [facility] 02-24-2023 16:35-0500 Respiratory rate 20 /min DR DEBBIE CHATMAN DO [facility] 02-24-2023 16:35-0500 Systolic Blood Pressure Non-Invasive 156 mm[Hg] DR DEBBIE CHATMAN DO [facility] 02-17-2023 09:39-0500 Diastolic Blood Pressure Non-Invasive 101 mm[Hg] DR ADQUAN MAI MD [facility] 02-17-2023 09:39-0500 Heart rate 94 /min DR DAQUAN MAI MD [facility] 02-17-2023 09:39-0500 Mean blood pressure 116 mm[Hg] DR DAQUAN MAI MD [facility] 02-17-2023 09:39-0500 Reason For Taking VItal Signs DR DAQUAN MAI MD [facility] 02-17-2023 09:39-0500 Respiratory rate 16 /min DR DAQUAN MAI MD [facility] 02-17-2023 09:39-0500 Systolic Blood Pressure Non-Invasive 158 mm[Hg] DR DAQUAN MAI MD [facility] 02-17-2023 07:34-0500 Body temperature 98.42 [degF] DR DAQUAN MAI MD [facility] 02-17-2023 07:34-0500 Diastolic Blood Pressure Non-Invasive 105 mm[Hg] DR DAQUAN MAI MD [facility] 02-17-2023 07:34-0500 Heart rate 88 /min DR DAQUAN MAI MD [facility] 02-17-2023 07:34-0500 Respiratory rate 16 /min DR DAQUAN MAI MD [facility] 02-17-2023 07:34-0500 Systolic Blood Pressure Non-Invasive 163 mm[Hg] DR DAQUAN MAI MD [facility] 01-23-2023 12:24-0500 Blood Pressure Location AUDRA REICHFIELD DO [facility] 01-23-2023 12:24-0500 Diastolic Blood Pressure Non-Invasive 76 mm[Hg] AUDRA REICHFIELD DO [facility] 01-23-2023 12:24-0500 Heart rate 81 /min AUDRA REICHFIELD DO [facility] 01-23-2023 12:24-0500 Reason For Taking VItal Signs AUDRA REICHFIELD DO [facility] 01-23-2023 12:24-0500 Respiratory rate 16 /min AUDRA REICHFIELD DO [facility] 01-23-2023 12:24-0500 Systolic Blood Pressure Non-Invasive 120 mm[Hg] AUDRA REICHFIELD DO [facility] 01-23-2023 09:16-0500 Blood Pressure Location AUDRA REICHFIELD DO [facility] 01-23-2023 09:16-0500 Body temperature 98.6 [degF] AUDRA REICHFIELD DO [facility] 01-23-2023 09:16-0500 Diastolic Blood Pressure Non-Invasive 86 mm[Hg] AUDRA REICHFIELD DO [facility] 01-23-2023 09:16-0500 Heart rate 84 /min AUDRA REICHFIELD DO [facility] 01-23-2023 09:16-0500 Respiratory rate 16 /min AUDRA REICHFIELD DO [facility] 01-23-2023 09:16-0500 Systolic Blood Pressure Non-Invasive 134 mm[Hg] AUDRA REICHFIELD DO [facility] 01-18-2023 07:37-0500 Body temperature 96.8 [degF] Satnam Rodriguez LACE MACHINE OPERATOR.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: [facility] 01-18-2023 07:37-0500 Body weight 130.18 kg Satnam Rodriguez LACE MACHINE OPERATOR.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: [facility] 01-18-2023 07:37-0500 Diastolic blood pressure 80 mm[Hg] Satnam Michael LACE MACHINE OPERATOR.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: [facility] 01-18-2023 07:37-0500 Heart rate 94 /min Satnam Michael LACE MACHINE OPERATOR.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: [facility] 01-18-2023 07:37-0500 Respiratory rate 16 /min Satnam Michael LACE MACHINE OPERATOR.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: [facility] 01-18-2023 07:37-0500 SaO2% (BldA) [Mass fraction] 96 % Satnam Michael LACE MACHINE OPERATOR.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: [facility] 01-18-2023 07:37-0500 Systolic blood pressure 132 mm[Hg] Satnam Michael LACE MACHINE OPERATOR.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: [facility] 01-17-2023 09:47-0500 Body temperature 96.91 [degF] Whitley Praisler-Wood LACE MACHINE OPERATOR.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: [facility] 01-17-2023 09:47-0500 Body weight 129.28 kg Whitley Praisler-Wood LACE MACHINE OPERATOR.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: [facility] 01-17-2023 09:47-0500 Diastolic blood pressure 88 mm[Hg] Whitley Praisler-Wood LACE MACHINE OPERATOR.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: [facility] 01-17-2023 09:47-0500 Heart rate 82 /min Whitley Praisler-Wood LACE MACHINE OPERATOR.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: [facility] 01-17-2023 09:47-0500 Respiratory rate 18 /min Whitley Praisler-Wood LACE MACHINE OPERATOR.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: [facility] 01-17-2023 09:47-0500 SaO2% (BldA) [Mass fraction] 96 % Whitley Praisler-Wood LACE MACHINE OPERATOR.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: [facility] 01-17-2023 09:47-0500 Systolic blood pressure 142 mm[Hg] Whitley Praisler-Wood LACE MACHINE OPERATOR.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: [facility] 01-10-2023 11:49-0500 Diastolic Blood Pressure Non-Invasive 81 1 SHEELA GARRIDO MD [facility] 01-10-2023 11:49-0500 Heart rate 68 /min SHEELA GARRIDO MD [facility] 01-10-2023 11:49-0500 Respiratory rate 20 /min SHEELA GARRIDO MD [facility] 01-10-2023 11:49-0500 Systolic Blood Pressure Non-Invasive 153 1 SHEELA GARRIDO MD [facility] 01-10-2023 10:16-0500 Diastolic Blood Pressure Non-Invasive 94 1 SHEELA GARRIDO MD [facility] 01-10-2023 10:16-0500 Heart rate 66 /min SHEELA GARRIDO MD [facility] 01-10-2023 10:16-0500 Respiratory rate 17 /min SHEELA GARRIDO MD [facility] 01-10-2023 10:16-0500 Systolic Blood Pressure Non-Invasive 152 1 SHEELA GARRIDO MD [facility] 01-10-2023 09:06-0500 Body temperature 97.52 [degF] SHEELA GARRIDO MD [facility] 01-10-2023 09:06-0500 Diastolic Blood Pressure Non-Invasive 97 1 SHEELA GARRIDO MD [facility] 01-10-2023 09:06-0500 Heart rate 72 /min SHEELA GARRIDO MD [facility] 01-10-2023 09:06-0500 Systolic Blood Pressure Non-Invasive 139 1 SHEELA GARRIDO MD [facility] 01-10-2023 08:35-0500 Blood Pressure Location SHEELA GARRIDO MD [facility] 01-10-2023 08:35-0500 Blood Pressure Method SHEELA GARRIDO MD [facility] 01-10-2023 08:35-0500 Body height 162.6 cm SHEELA GARRIDO MD [facility] 01-10-2023 08:35-0500 Body weight 129.4 kg SHEELA GARRIDO MD [facility] 01-10-2023 08:35-0500 Heart rate 98 /min SHEELA GARRIDO MD [facility] 01-10-2023 08:35-0500 Respiratory rate 20 /min SHEELA GARRIDO MD [facility] 12-25-2022 01:29-0400 Diastolic Blood Pressure Non-Invasive 79 1 FABIAN DURESKA DO [facility] 12-25-2022 01:29-0400 Heart rate 75 /min FABIAN DURESKA DO [facility] 12-25-2022 01:29-0400 Respiratory rate 16 /min FABIAN DURESKA DO [facility] 12-25-2022 01:29-0400 Systolic Blood Pressure Non-Invasive 119 1 FABIAN DURESKA DO [facility] 12-25-2022 00:30-0400 Diastolic Blood Pressure Non-Invasive 75 1 FABIAN DURESKA DO [facility] 12-25-2022 00:30-0400 Heart rate 75 /min FABIAN DURESKA DO [facility] 12-25-2022 00:30-0400 Respiratory rate 16 /min FABIAN DURESKA DO [facility] 12-25-2022 00:30-0400 Systolic Blood Pressure Non-Invasive 135 1 FABIAN DURESKA DO [facility] 12-24-2022 22:30-0400 Diastolic Blood Pressure Non-Invasive 80 1 FABIAN DURESKA DO [facility] 12-24-2022 22:30-0400 Heart rate 72 /min FABIAN DURESKA DO [facility] 12-24-2022 22:30-0400 Reason For Taking VItal Signs FABIAN RODRIGUEZKA DO [facility] 12-24-2022 22:30-0400 Respiratory rate 16 /min FABIAN DURESKA DO [facility] 12-24-2022 22:30-0400 Systolic Blood Pressure Non-Invasive 123 1 FABIAN HEARNESKA DO [facility] 12-24-2022 19:56-0400 Reason For Taking VItal Signs FABIAN RODRIGUEZKA DO [facility] 12-24-2022 18:06-0400 Body height 162.6 cm FABIAN HEARNESKA DO [facility] 12-24-2022 18:06-0400 Body temperature 97.88 [degF] FABIAN DURESKA DO [facility] 12-24-2022 18:06-0400 Body weight 127.3 kg FABIAN RODRIGUEZKA DO [facility] 12-24-2022 18:06-0400 Heart rate 83 /min FABIAN HEARNESKA DO [facility] 12-14-2022 10:52-0400 Body temperature 97.7 [degF] Whitley Kemp-Mohan LACE MACHINE OPERATOR.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: [facility] 12-14-2022 10:52-0400 Body weight 130.18 kg Whitley Kemp-Mohan LACE MACHINE OPERATOR.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: [facility] 12-14-2022 10:52-0400 Diastolic blood pressure 80 mm[Hg] Whitley Praisler-Mohan LACE MACHINE OPERATOR.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: [facility] 10-17-2023 10:52-0400 Heart rate 78 /min Whitley Praisler-Wood LACE MACHINE OPERATOR.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: [facility] 12-14-2022 10:52-0400 Respiratory rate 16 /min Whitley Praisler-Wood LACE MACHINE OPERATOR.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: [facility] 12-14-2022 10:52-0400 SaO2% (BldA) [Mass fraction] 97 % Whitley Praisler-Wood LACE MACHINE OPERATOR.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: [facility] 12-14-2022 10:52-0400 Systolic blood pressure 128 mm[Hg] Whitley Praisler-Wood LACE MACHINE OPERATOR.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: [facility] 11-16-2022 10:58-0400 Body temperature 97.7 [degF] Dion Athy PA-C Work Phone: [facility] 11-16-2022 10:58-0400 Body weight 126.1 kg Dion Athy PA-C Work Phone: [facility] 11-16-2022 10:58-0400 Diastolic blood pressure 82 mm[Hg] Dion Athy PA-C Work Phone: [facility] 11-16-2022 10:58-0400 Heart rate 102 /min Dion Athy PA-C Work Phone: [facility] 11-16-2022 10:58-0400 Respiratory rate 18 /min Dion Athy PA-C Work Phone: [facility] 11-16-2022 10:58-0400 SaO2% (BldA) [Mass fraction] 98 % Dion Athy PA-C Work Phone: [facility] 11-16-2022 10:58-0400 Systolic blood pressure 138 mm[Hg] Dion Athy PA-C Work Phone: [facility] 10-03-2022 15:59-0400 Body temperature 98.42 [degF] SHEEAL GARRIDO MD [facility] 10-03-2022 15:59-0400 Diastolic Blood Pressure Non-Invasive 88 1 SHEELA GARRIDO MD [facility] 10-03-2022 15:59-0400 Heart rate 96 /min SHEELA GARRIDO MD [facility] 10-03-2022 15:59-0400 Respiratory rate 18 /min SHEELA GARRIDO MD [facility] 10-03-2022 15:59-0400 Systolic Blood Pressure Non-Invasive 124 1 SHEELA GARRIDO MD [facility] 10-03-2022 13:36-0400 Blood Pressure Cuff Size SHEELA GARRIDO MD [facility] 10-03-2022 13:36-0400 Blood Pressure Location SHEELA GARRIDO MD [facility] 10-03-2022 13:36-0400 Blood Pressure Method SHEELA GARRIDO MD [facility] 10-03-2022 13:36-0400 Body temperature 98.6 [degF] SHEELA GARRIDO MD [facility] 10-03-2022 13:36-0400 Diastolic Blood Pressure Non-Invasive 85 1 SHEELA GARRIDO MD [facility] 10-03-2022 13:36-0400 Heart rate 104 /min SHEELA GARRIDO MD [facility] 10-03-2022 13:36-0400 Respiratory rate 20 /min SHEELA GARRIDO MD [facility] 10-03-2022 13:36-0400 Systolic Blood Pressure Non-Invasive 128 1 SHEELA GARRIDO MD [facility] 09-22-2022 23:41-0400 Body temperature 98.24 [degF] DR OMEGA OCHOA DO [facility] 09-22-2022 23:41-0400 Diastolic Blood Pressure Non-Invasive [address] DUFF KORYCEDRIC DO [facility] 09-22-2022 23:41-0400 Heart rate 100 /min DR DUFF KORYCEDRIC DO [facility] 09-22-2022 23:41-0400 Respiratory rate 20 /min DR DUFF KORYCEDRIC DO [facility] 09-22-2022 23:41-0400 Systolic Blood Pressure Non-Invasive [address] DUFF KORYCEDRIC DO [facility] 08-17-2022 14:34-0400 Diastolic blood pressure 94 mm[Hg] Whitley Praisler-Wood LACE MACHINE OPERATOR.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: [facility] 08-17-2022 14:34-0400 Heart rate 83 /min Whitley Praisler-Wood LACE MACHINE OPERATOR.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: [facility] 08-17-2022 14:34-0400 SaO2% (BldA) [Mass fraction] 98 % Whitley Praisler-Wood LACE MACHINE OPERATOR.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: [facility] 08-17-2022 14:34-0400 Systolic blood pressure 182 mm[Hg] Whitley Praisler-Wood LACE MACHINE OPERATOR.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: [facility] 08-17-2022 13:36-0400 Body temperature 98.2 [degF] Whitley Praisler-Wood LACE MACHINE OPERATOR.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: [facility] 08-17-2022 13:36-0400 Body weight 114.31 kg Whitley Praisler-Wood LACE MACHINE OPERATOR.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: [facility] 08-17-2022 13:36-0400 Respiratory rate 16 /min Whitley Praisler-Wood LACE MACHINE OPERATOR.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: [facility] 08-13-2022 22:09-0400 Diastolic Blood Pressure Non-Invasive [address] INA DICKSON MD [facility] 08-13-2022 22:09-0400 Heart rate 85 /min DR INA DICKSON MD [facility] 08-13-2022 22:09-0400 Respiratory rate 20 /min DR INA DICKSON MD [facility] 08-13-2022 22:09-0400 Systolic Blood Pressure Non-Invasive [address] INA DICKSON MD [facility] 08-13-2022 20:59-0400 Body temperature 98.06 [degF] DR INA DICKSON MD [facility] 08-13-2022 20:59-0400 Diastolic Blood Pressure Non-Invasive [address] INA DICKSON MD [facility] 08-13-2022 20:59-0400 Heart rate 80 /min DR INA DICKSON MD [facility] 08-13-2022 20:59-0400 Respiratory rate 18 /min DR INA DICKSON MD [facility] 08-13-2022 20:59-0400 Systolic Blood Pressure Non-Invasive [address] INA DICKSON MD [facility] 07-28-2022 09:55-0400 Body temperature 98.01 [degF] Dion Escobar PA-C Work Phone: [facility] 07-28-2022 09:55-0400 Body weight 122.47 kg Dion Danay PA-C Work Phone: [facility] 07-28-2022 09:55-0400 Diastolic blood pressure 80 mm[Hg] Dion Athy PA-C Work Phone: [facility] 07-28-2022 09:55-0400 Heart rate 62 /min Dion Athy PA-C Work Phone: [facility] 07-28-2022 09:55-0400 Respiratory rate 18 /min Dion Athy PA-C Work Phone: [facility] 07-28-2022 09:55-0400 SaO2% (BldA) [Mass fraction] 98 % Dion Athy PA-C Work Phone: [facility] 07-28-2022 09:55-0400 Systolic blood pressure 122 mm[Hg] Dion Athy PA-C Work Phone: [facility] 05-04-2022 14:35-0500 Body temperature 98.4 [degF] Dion Athy PA-C Work Phone: [facility] 05-04-2022 14:35-0500 Body weight 121.38 kg Dion Athy PA-C Work Phone: [facility] 05-04-2022 14:35-0500 Diastolic blood pressure 88 mm[Hg] Dion Athy PA-C Work Phone: [facility] 05-04-2022 14:35-0500 Heart rate 87 /min Dion Athy PA-C Work Phone: [facility] [facility] 05-04-2022 14:35-0500 Respiratory rate 18 /min Dion Athy PA-C Work Phone: [facility] 05-04-2022 14:35-0500 SaO2% (BldA) [Mass fraction] 99 % Dion Athy PA-C Work Phone: [facility] 05-04-2022 14:35-0500 Systolic blood pressure 148 mm[Hg] Dion Athy PA-C Work Phone: [facility] 04-17-2022 13:18-0500 Body temperature 97.81 [degF] Jessica Mcintosh APRN.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: [facility] 04-17-2022 13:18-0500 Body weight 124.92 kg Jessica Dayna LACE MACHINE OPERATOR.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: [facility] 04-17-2022 13:18-0500 Diastolic blood pressure 110 mm[Hg] Jessica Dayna LACE MACHINE OPERATOR.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: [facility] 04-17-2022 13:18-0500 Heart rate 79 /min Jessica Dayna LACE MACHINE OPERATOR.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: [facility] 04-17-2022 13:18-0500 Respiratory rate 21 /min Jessica Dayna LACE MACHINE OPERATOR.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: [facility] 04-17-2022 13:18-0500 SaO2% (BldA) [Mass fraction] 97 % Jessica Dayna LACE MACHINE OPERATOR.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: [facility] 04-17-2022 13:18-0500 Systolic blood pressure 152 mm[Hg] Jessica Dayna LACE MACHINE OPERATOR.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: [facility] 02-25-2022 15:16-0500 Body temperature 98.71 [degF] 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: [facility] 02-25-2022 15:16-0500 Body weight 124.1 kg 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: [facility] 02-25-2022 15:16-0500 Diastolic blood pressure 80 mm[Hg] 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: [facility] 02-25-2022 15:16-0500 Heart rate 82 /min 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: [facility] 02-25-2022 15:16-0500 Respiratory rate 16 /min 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: [facility] 02-25-2022 15:16-0500 SaO2% (BldA) [Mass fraction] 99 % 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: [facility] 02-25-2022 15:16-0500 Systolic blood pressure 138 mm[Hg] 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: [facility] 12-20-2021 16:49-0400 Diastolic blood pressure 88 mm[Hg] DR VAHE JENKINS MD [facility] 12-20-2021 16:49-0400 Heart rate 80 /min DR VAHE JENKINS MD [facility] 12-20-2021 16:49-0400 Respiratory rate 18 /min DR VAHE JENKINS MD [facility] 12-20-2021 16:49-0400 Systolic blood pressure 174 mm[Hg] DR VAHE JENKINS MD [facility] 12-20-2021 15:50-0400 Body temperature 97.7 [degF] DR VAHE JENKINS MD [facility] 12-20-2021 15:50-0400 Heart rate 76 /min DR VAHE JENKINS MD [facility] 12-20-2021 15:50-0400 Respiratory rate 18 /min DR VAHE JENKINS MD [facility] 12-20-2021 13:53-0400 Body temperature 99.68 [degF] DR VAHE JENKINS MD [facility] 12-20-2021 13:53-0400 Diastolic blood pressure 100 mm[Hg] DR VAHE JENKINS MD [facility] 12-20-2021 13:53-0400 Heart rate 78 /min DR VAHE JENKINS MD [facility] 12-20-2021 13:53-0400 Respiratory rate 18 /min DR VAHE JENKINS MD [facility] 12-20-2021 13:53-0400 Systolic blood pressure 160 mm[Hg] DR VAHE JENKINS MD [facility] 11-13-2021 11:51-0400 Body temperature 97.39 [degF] Dion Athy PA-C Work Phone: [facility] 11-13-2021 11:51-0400 Body weight 129.18 kg Dion Athy PA-C Work Phone: [facility] 11-13-2021 11:51-0400 Diastolic blood pressure 72 mm[Hg] Dion Athy PA-C Work Phone: [facility] 11-13-2021 11:51-0400 Heart rate 78 /min Dion Athy PA-C Work Phone: [facility] 11-13-2021 11:51-0400 Respiratory rate 16 /min Dion Athy PA-C Work Phone: [facility] 11-13-2021 11:51-0400 SaO2% (BldA) [Mass fraction] 98 % Dion Athy PA-C Work Phone: [facility] 11-13-2021 11:51-0400 Systolic blood pressure 130 mm[Hg] Dion Athy PA-C Work Phone: [facility] 10-17-2021 11:10-0400 Body temperature 98.01 [degF] Jac Mullen MD Work Phone: [facility] 10-17-2021 11:10-0400 Body weight 126.55 kg Jac Mullen MD Work Phone: [facility] 10-17-2021 11:10-0400 Diastolic blood pressure 84 mm[Hg] Jac Mullen MD Work Phone: [facility] 10-17-2021 11:10-0400 Heart rate 66 /min Jac Mullen MD Work Phone: [facility] 10-17-2021 11:10-0400 Respiratory rate 16 /min Jac Mullen MD Work Phone: [facility] 10-17-2021 11:10-0400 SaO2% (BldA) [Mass fraction] 99 % Jac Mullen MD Work Phone: [facility] 10-17-2021 11:10-0400 Systolic blood pressure 122 mm[Hg] Jac Mullen MD Work Phone: [facility] 06-10-2021 11:20-0400 Diastolic Blood Pressure NBP 63 1 IRMA JEWELL DO [facility] 06-10-2021 11:20-0400 Heart rate 75 /min IRMA JEWELL DO [facility] 06-10-2021 11:20-0400 Respiratory rate 19 /min IRMA JEWELL DO [facility] 06-10-2021 11:20-0400 Systolic Blood Pressure NBP 111 1 IRMA JEWELL DO [facility] 06-10-2021 11:15-0400 Heart rate 72 /min IRMA JEWELL DO [facility] 06-10-2021 11:15-0400 Respiratory rate 15 /min IRMA JEWELL DO [facility] 06-10-2021 11:10-0400 Diastolic Blood Pressure NBP 67 1 IRMA JEWELL DO [facility] 06-10-2021 11:10-0400 Heart rate 77 /min IRMA JEWELL DO [facility] 06-10-2021 11:10-0400 Respiratory rate 19 /min IRMA JEWELL DO [facility] 06-10-2021 11:10-0400 Systolic Blood Pressure NBP 95 1 IRMA JEWELL DO [facility] 06-10-2021 11:05-0400 Diastolic Blood Pressure NBP 69 1 IRMA JEWELL DO [facility] 06-10-2021 11:05-0400 Systolic Blood Pressure NBP 100 1 IRMA JEWELL DO [facility] 06-10-2021 10:55-0400 Body temperature 97.52 [degF] IRMA JEWELL DO [facility] 06-10-2021 08:16-0400 Body height 162.6 cm IRMA JEWELL DO [facility] 06-10-2021 08:16-0400 Body temperature 96.98 [degF] IRMA JEWELL DO [facility] 06-10-2021 08:16-0400 Body weight 132.1 kg IRMA JEWELL DO [facility] 06-10-2021 08:16-0400 Heart rate 79 /min IRMA JEWELL DO [facility] 06-09-2021 10:24-0400 Body height 162.6 cm IRMA JEWELL DO [facility] 06-09-2021 10:24-0400 Body weight 132.1 kg IRMA JEWELL DO [facility] 06-09-2021 10:24-0400 Body weight 49.96 kg/m2 IRMA JEWELL DO [facility] 06-09-2021 10:24-0400 diastolic 68 mm[Hg] IRMA JEWELL DO [facility] 06-09-2021 10:24-0400 Heart rate 73 /min IRMA JEWELL DO [facility] 06-09-2021 10:24-0400 Respiratory rate 22 /min IRMA JEWELL DO [facility] 06-09-2021 10:24-0400 systolic 140 mm[Hg] IRMA JEWELL DO [facility] Encounters Encounter Date Encounter Type Care Provider Facility Start: 02-27-2023 End: 02-27-2023 Emergency department patient visit ALXE TEMPLETON MD Facility:B Start: 02-27-2023 End: 02-27-2023 Emergency department patient visit ALEX TEMPLETON MD [facility] Start: 02-24-2023 End: 02-24-2023 Emergency department patient visit DR DEBBIE CHATMAN DO Facility:[facility] Start: 02-24-2023 End: 02-24-2023 Emergency department patient visit DR DEBBIE CHATMAN DO [facility] Start: 02-20-2023 End: 02-20-2023 Emergency department patient visit ARAMSHANE MCCARTHYNGER DO Facility:[facility] Start: 02-17-2023 End: 02-17-2023 Emergency department patient visit DR DAQUAN MAI MD Facility:[facility] Start: 02-17-2023 End: 02-17-2023 Emergency department patient visit DR DAQUAN MAI MD [facility] Start: 01-23-2023 End: 01-23-2023 Emergency department patient visit AUDRA PHILLIPS DO Facility:[facility] Start: 01-23-2023 End: 01-23-2023 Emergency department patient visit [facility]DR[facility] Start: 01-18-2023 End: 01-19-2023 ambulatory [facility] Facility:[facility] Start: 01-18-2023 End: 01-18-[address] 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: Start: 09-28-2020 Cardiac catheterization IRMA JEWELL DO Plan of Treatment Date Care Activity Detail Author Start: 01-18-2026 Diabetes Screening Diabetes Screenin g [facility] Start: 12-14-2025 Diabetes Screening Diabetes Screenin g [facility] Start: 12-14-2022 End: 03-15-2023 CBC W Auto Differential panel - Blood [facility] Work Phone: Payers Date Payer Category Payer Medicaid [id number] 2019 Medicaid MEDICAID [facility] MEDICAID [id number] 2019-Present [phone] [address] [place] [address] Medicaid [id number] 2019 Medicare [id number] 2019 Medicare [employer] [place] [id number] 2019-Present [phone] [address] [place] [address] HMO [id number] 1970 Unknown [id number] 1970 Unknown [id number] 1970 Unknown [id number] [id number] 1970 Unknown [id number] [id number]. 1970 Unknown [id number] [id number] 1970 Unknown [id number] [id number]. 1970 Unknown [id number] 1970 Unknown [id number] [id number] 1970 Unknown [id number] 1970 Unknown [id number] [id number] 1970 Unknown [id number] [id number] 1970 Unknown [id number] Social History Date Type Detail Facility Start: 11-25-2018 End: 04-23-2020 Tobacco smoking status CTIS Never smoker [employer] Phone: Start: 10-19-2010 End: 04-23-2020 Tobacco use and exposure Never used [employer] Phone: Start: 04-23-2020 Alcohol intake Lifetime non-d ambar (finding) [employer] Phone: Start: 04-23-2020 History SDOH Alcohol Frequency 1 [employer] Phone: Start: 1970 Sex Assigned At Not on file S [employer] Work Phone: Sex Assigned At Female [facility] Start: 10-17-2021 End: 01-18-2023 Alcohol intake Current non-drinker of alcohol (finding) [facility] Start: 11-03-2021 End: 11-13-2021 Exposure to SARS-CoV-2 (event) Not sure [facility] Start: 11-16-2022 End: 01-18-2023 History of Social function [facility] Start: 11-16-2022 End: 01-18-2023 Tobacco use panel [facility] Functional Status Date Assessment Result Facility 02-27-2023 Functional Status Assistive Device None A [facility] 02-27-2023 Functional Status Standard Safet y ID band on, Allergy Band on, Call device within reach, Bed in low position, Wheels locked, Bedside Cart Locked, Visitor at bedside [facility] 02-24-2023 Functional Status Identified as high risk, Fall ID band on [facility] 02-17-2023 Functional Status Independent Johny Singh [facility] 02-17-2023 Functional Status ID band on [facility] 01-23-2023 Functional Status Assistive Device None A [facility] 01-23-2023 Functional Status Standard Safety ID band on [facility] 01-10-2023 Functional Status Room check performed [facility] 01-10-2023 Functional Status Johny Singh [facility] 01-10-2023 Functional Status Johny [facility] 12-25-2022 Functional Status Standard Safet y ID band on, Call device within reach, Bed in low position, Wheels locked [facility] 12-24-2022 Functional Status Johny Singh [facility] 12-24-2022 Functional Status Johny Singh [facility] 10-03-2022 Functional Status Independent Johny Singh [facility] 09-23-2022 Functional Status Activity Mago tance Independent [facility] 08-13-2022 Functional Status Assistive Device Crutch es [facility] 12-20-2021 Functional Status Independent Johny Singh [facility] 06-10-2021 Functional Status Johny Singh [facility] 06-10-2021 Functional Status Johny Singh [facility] 06-09-2021 Functional Status Johny Singh [facility] Mental Status Date Assessment Result Facility 02-27-2023 Mental Status Orientation Oriented x 4 [facility] 02-27-2023 Mental Status [facility] 02-24-2023 Mental Status Oriented x 4 [facility] 02-17-2023 Mental Status Orientation Oriented x 4 [facility] 01-23-2023 Mental Status Orientation Oriented x 4 [facility] 01-23-2023 Mental Status [facility] 01-10-2023 Mental Status Orientation Oriented x 4 [facility] 01-10-2023 Mental Status [facility] 12-24-2022 Mental Status Orientation Oriented x 4 [facility] 10-03-2022 Mental Status Orientation Oriented x 4 [facility] 09-23-2022 Mental Status Orientation Oriented x 4 [facility] 09-23-2022 Mental Status [facility] 08-13-2022 Mental Status Oriented x 4 [facility] 12-20-2021 Mental Status Orientation Oriented x 4 [facility] 06-10-2021 Mental Status [facility] 06-10-2021 Mental Status [facility] Clinical Notes 06-10-2021 to 02-27-2023 Addendum Note - Satnam Rodriguez APRN.[facility] - 01/18/2023 10:48 AM ESTPatient InstructionsSatnam Rodriguez APRN.[facility] - 01/18/2023 7:42 AM ESTPatient InstructionsPatient InstructionsLaboratoryLaboratory Note Date & Type Note Facility 02-27-2023 Hospital Discharge instructions Patient Education 02/27/2023 06:24:39 Dizziness, Uncertain Cause Dizziness (Uncertain Cause) Dizziness is a common symptom. It may be described as lightheadedness, spinning, or feeling like you are going to faint. Dizziness can have many causes. Be sure to tell the healthcare provider about: All medicines you take, including prescription, [id number], herbs, and supplements Any other symptoms you have Any health problems you are being treated for Any past major health problems you've had, such as a heart attack, balance issues, hearing problems, or blood pressure problems Anything that causes the dizziness to get worse or better Today's exam did not show an exact cause for your dizziness. Other tests may be needed. Follow up with your healthcare provider. Home care Dizziness that occurs with sudden standing may be a sign of mild dehydration. Drink extra fluids for the next few days. If you recently started a new medicine, stopped a medicine, or had the dose of a current medicine changed, talk with the prescribing healthcare provider. Your medicine plan may need adjustment. If dizziness lasts more than a few seconds, sit or lie down until it passes. This may help prevent injury in case you pass out. Get up slowly when you feel better. Don't drive or use power tools or dangerous equipment until you have had no dizziness for at least 48 hours. Follow-up care Follow up with your healthcare provider for further evaluation within the next 7 days or as advised. When to seek medical advice Call your healthcare provider for any of the following: Worsening of symptoms or new symptoms Passing out or seizure Repeated vomiting Headache Palpitations (the sense that your heart is fluttering or beating fast or hard) Shortness of breath Blood in vomit or stool (black or red color) Weakness of an arm or leg or 1 side of the face Vision or hearing changes Trouble walking or speaking Chest, arm, neck, back, or jaw pain [id number] [employer]. [address] [place] [address]. All rights reserved. This information is not intended as a substitute for professional medical care. Always follow your healthcare professional's instructions. Follow Up Care 02/27/2023 05:53:35 With:ARAM JOHNSON DO Address: [address] [place] [address] [phone] When:2-4 days [facility] 02-27-2023 Note Discharge Instructions Thank you for allowing [place] to assist you with your healthcare needs. The following is important discharge information regarding your hospital visit. Diagnosis from Today's Visit Dizziness Medication overdose What to Do Next Instructions from Your Care Team No qualifying data available. Post Acute Orders No qualifying data available. You Need to Schedule the Following Appointments Follow Up with ARAM JOHNSON DO When Within 2-4 days Where: [address] [place] [address] [phone] Allergies Naprosyn (Nausea) aspirin (NAUSEA) Medications Please ask your primary doctor or pharmacist before taking any other medication not listed, including over the counter drugs, herbal medications, vitamins and or supplements as they may interact with your home medications. What How Much When Why Instructions Last Dose Unchanged acetaminophen (Tylenol Extra Strength 500 mg oral tablet) 3 tab by mouth Every 6 hours as needed for as needed for pain Unchanged acetaminophen-hydrocodone ([place] 325- 5 mg oral tablet) 1 tab(s) by mouth Every 6 hours as needed for for pain Headache Duration: 3 Days Unchanged albuterol (Proventil HFA MDI (90 mcg/ inh) inhalation aerosol) 2 puff(s) by inhalation Every 4 hours as needed for as needed for wheezing Managed by pulmonology Unchanged amLODIPine (amLODIPine 10 mg oral tablet) 1 tab(s) by mouth Once a day Duration: 30 Days Unchanged apixaban (Eliquis Starter Pack for Treatment of DVT and PE 5 mg oral tablet) [10mg BID x 7days-then 5mg BID] by mouth Two (2) times a day Duration: 30 Days Unchanged ascorbic acid (Vitamin C 500 mg oral tablet) 1 tab(s) by mouth Once a day Iron deficiency anemia, unspecified Iron deficiency anemia, unspecified Duration: 90 Days Unchanged atogepant (Qulipta 60 mg oral tablet) 1 tab(s) by mouth Once a day Unchanged cephalexin (Keflex use cephalexin ) 500 Milligram by mouth Two (2) times a day Duration: 10 Days Unchanged cholecalciferol (cholecalciferol 1250 mcg (50,000 intl units) oral capsule) 1 cap by mouth Every week Vitamin D deficiency Duration: 30 Days Unchanged citalopram (CeleXA 40 mg oral tablet) 1 tab(s) by mouth Once a day Anxiety and depression Duration: 30 Days Unchanged empagliflozin (Jardiance 25 mg oral tablet) 1 tab(s) by mouth Once a day (in the morning) DM type 2, goal HbA1c < 7.5% Duration: 30 Days Unchanged febuxostat (Uloric 40 mg oral tablet) 1 tab(s) by mouth Every day Gout Duration: 30 Days Unchanged ferrous sulfate (ferrous sulfate 325 mg (65 mg elemental iron) oral delayed release tablet) 1 tab(s) by mouth Once a day Iron deficiency anemia, unspecified Duration: 90 Days Unchanged fluticasone/ umeclidinium/ vilanterol (Trelegy Ellipta 100 mcg-62.5 mcg-25 mcg/ inh inhalation powder) 1 puff(s) by inhalation Once a day Asthma in adult Duration: 90 Days Managed by Pulmonology Unchanged gabapentin (gabapentin 100 mg oral capsule) TAKE 1 CAPSULE BY MOUTH THREE TIMES DAILY Unchanged galcanezumab (Emgality Prefilled Pen 120 mg/ mL subcutaneous solution) Inject 120 mg every month by subcutaneous route. 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 Unchanged nortriptyline (nortriptyline 50 mg oral capsule) 1 cap by mouth Daily at bedtime Unchanged ondansetron (Zofran 4 mg oral tablet) 1 tab(s) by mouth Every 6 hours as needed for Nausea/Vomiting Unchanged ondansetron (Zofran ODT use ondansetron oral tablet, disintegrating ) 4 Milligram by mouth Every 8 hours Duration: 5 Days Unchanged rimegepant (Nurtec ODT 75 mg oral tablet, disintegrating) 1 tab(s) by mouth Every 24 hours as needed for as needed for migraine headache not to exceed 75 mg in 24 hours Unchanged tiZANidine (tiZANidine 4 mg oral capsule) 1 cap by mouth Two (2) times a day Unchanged traMADol (traMADol 50 mg oral tablet) 1 tab(s) by mouth Two (2) times a day Unchanged ubrogepant (Ubrelvy 100 mg oral tablet) 1 tab(s) by mouth Once as needed for as needed for migraine headache may repeat dose in 2 hours if needed. Max dose of 2 tabs in 24 hrs Unchanged valsartan (valsartan 320 mg oral tablet) 1 tab(s) by mouth Once a day Duration: 30 Days Please take this list to your next doctor s visit. Bring all medications you take, including over the counter medications, herbals and other supplements with you to your doctor s visit. Patients and families are reminded to discard old lists and to update any records with all medication providers or retail pharmacies. Education Materials Dizziness (Uncertain Cause) Dizziness is a common symptom. It may be described as lightheadedness, spinning, or feeling like you are going to faint. Dizziness can have many causes. Be sure to tell the healthcare provider about: All medicines you take, including prescription, [id number]-anjhlcx, herbs, and supplements Any other symptoms you have Any health problems you are being treated for Any past major health problems you've had, such as a heart attack, balance issues, hearing problems, or blood pressure problems Anything that causes the dizziness to get worse or better Today's exam did not show an exact cause for your dizziness. Other tests may be needed. Follow up with your healthcare provider. Home care Dizziness that occurs with sudden standing may be a sign of mild dehydration. Drink extra fluids for the next few days. If you recently started a new medicine, stopped a medicine, or had the dose of a current medicine changed, talk with the prescribing healthcare provider. Your medicine plan may need adjustment. If dizziness lasts more than a few seconds, sit or lie down until it passes. This may help prevent injury in case you pass out. Get up slowly when you feel better. Don't drive or use power tools or dangerous equipment until you have had no dizziness for at least 48 hours. Follow-up care Follow up with your healthcare provider for further evaluation within the next 7 days or as advised. When to seek medical advice Call your healthcare provider for any of the following: Worsening of symptoms or new symptoms Passing out or seizure Repeated vomiting Headache Palpitations (the sense that your heart is fluttering or beating fast or hard) Shortness of breath Blood in vomit or stool (black or red color) Weakness of an arm or leg or 1 side of the face Vision or hearing changes Trouble walking or speaking Chest, arm, neck, back, or jaw pain [phone] [employer]. [address] [place] [address], [place] [address]. All rights reserved. This information is not intended as a substitute for professional medical care. Always follow your healthcare professional's instructions. Additional Information VACCINATE! IT SAVES LIVES! Members of the community who have not yet received the COVID-19 vaccine and would like to receive it can visit one of [facility] vaccine clinics. There are many vaccine clinic locations within the [facility]. For locations and available times, please visit [email or web address] It is important to note that some COVID mobile vaccine clinics are held outdoors and may be canceled in rainy or stormy conditions. To learn more about pediatric vaccinations (ages 5-11), we invite you to visit the [facility] webpage. [email or web address] To learn more about the COVID-19 vaccine, we invite you to visit the CDC website for a list of frequently asked questions. https://www.cdc.gov/coronavirus/ 2019-ncov/vaccines/faq.html [facility] Patient Portal Access Instructions: Stay connected with your healthcare team and access your personal medical information anytime with the [facility] Patient Portal. If you would like a full copy of your medical records please contact the [facility] Medical Records Department Tuesday through Tuesday between 8a.m. and 4:30p.m. Please follow the directions below to access the portal: 1.Access the email account you provided upon registration to the hospital.2.Look for an invitation email from [facility].3.Open the email and access the invitation link: Accept Invitation to [facility]4.Fill in the required lee to create your account. Sign into [email or web address] with your username and password that you created in the above steps to stay up to date. You can then view a summary of results, a summary of your visits, and the ability to download your summaries to your computer or send the information securely to a physician. Remember that your healthcare information is confidential, so carefully consider who you will allow to register on the [facility] Patient Portal for access to your information. You can also access the [facility] Patient Portal on the [employer]od[employer]er. Simply click on Health Records under Health Data and then click on the [facility] logo. HOW TO SAFELY DISPOSE OF PRESCRIPTION MEDICATIONS Please use one of the following methods to safely dispose of your unused medications. 1.Use a drug disposal kit: the drug disposal pouch allows you to safely discard your old and unused drugs. Ask your nurse to give you one when you are discharged.2.Visit a local take-back location: Many local pharmacies and police departments have programs that collect old and unwanted prescription drugs. Call your local pharmacy or go to http://[employer].Bluechilli/3S3Qo6k to find one close to you.3.Make use of household items: Use cat litter or old coffee grounds to dispose medications if other options are not available. Mix your drugs with these household products, seal them in an airtight container and throw it into the garbage. Call [facility]: [phone] to be sure your drugs can be disposed of in this way. Some medicines may require a different approach.4.Never flush your medications down the toilet. IF YOU HAVE BEEN PRESCRIBED AN OPIOIDS FOR PAIN If you have been prescribed an opioid (such as hydrocodone, oxycodone or morphine), it is critical to understand the possible side effects and risks of opioid pain medications. Even when taken as directed, opioids can have several side effects including: Tolerance, meaning you might need to take more of a medication for the same pain relief. Nausea, vomiting and/or constipation. Sleepiness, dizziness, dry mouth, confusion, depression or itching. Physical dependence, meaning you have withdrawal symptoms when a medication is stopped ? this can develop within a few days. KNOW YOUR RESPONSIBILITIES It is important to know exactly how much and how often to take the opioid pain medications you are prescribed. Never take opioids in higher amounts or more often than prescribed. Do not combine opioids with alcohol or other drugs that cause drowsiness, such as benzodiazepines, also known as benzos, including diazepam and alprazolam, muscle relaxants or sleep aids. Never sell or share prescription opioids. This is illegal. Store opioids in a secure place and out of reach of others (including children, family, friends and visitors). The last page(s) of this document has been signed and retained as a CHART COPY Signatures Patient Education Materials Dizziness, Uncertain Cause Medication Leaflets My discharge plan and instructions have been reviewed and explained to me and ISAAC Nagel APRIL L understand my current condition and have read and understand these discharge instructions. I have received a written copy of the plan/instructions. If I have questions, I am aware that I should contact my doctor. 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 A break in the skin, such as a cut or scratch, can let bacteria under the skin. If the bacteria get to deep layers of the skin, it can be serious. If not treated, cellulitis can get into the bloodstream and lymph nodes. The infection can then spread throughout the body. This causes serious illness. Cellulitis causes the affected skin to become red, swollen, warm, and sore. The reddened areas have a visible border. An open sore may leak fluid (pus). You may have a fever, chills, and pain. Cellulitis is treated with antibiotics taken for 7 to 10 days. An open sore may be cleaned and covered with cool wet gauze. Symptoms should get better 1 to 2 days after treatment is started. Make sure to take all the antibiotics for the full number of days until they are gone. Keep taking the medicine even if your symptoms go away. Home care Follow these tips: Limit the use of the part of your body with cellulitis. If the infection is on your leg, keep your leg raised while sitting. This will help to reduce swelling. Take all of the antibiotic medicine exactly as directed until it is gone. Do not miss any doses, especially during the first 7 days. Don t stop taking the medicine when your symptoms get better. Keep the affected area clean and dry. Wash your hands with soap and warm water before and after touching your skin. Anyone else who touches your skin should also wash his or her hands. Don't share towels. Follow-up care Follow up with your healthcare provider, or as advised. If your infection does not go away on the first antibiotic, your healthcare provider will prescribe a different one. When to seek medical advice Call your healthcare provider right away if any of these occur: Red areas that spread Swelling or pain that gets worse Fluid leaking from the skin (pus) Fever higher of 100.4 F (38.0 C) or higher after 2 days on antibiotics [id number] [employer]. [address] [place] [address]. All rights reserved. This information is not intended as a substitute for professional medical care. Always follow your healthcare professional's instructions. Follow Up Care 02/24/2023 16:26:27 With:ARAM JOHNSON DO Address: [address] [place] [phone] When:2-4 days [facility] 02-24-2023 Note Discharge Instructions Thank you for allowing [facility] to assist you with your healthcare needs. The following is important discharge information regarding your hospital visit. Diagnosis from Today's Visit Dizziness What to Do Next Instructions from Your Care Team Follow-up with your PCP in the next 2 to 4 days. Please return to the emergency department if you experience another traumatic injury or start experiencing high fevers at home. Please return to the emergency department if you start experiencing worsening redness over your leg No qualifying data available. Post Acute Orders No qualifying data available. You Need to Schedule the Following Appointments Follow Up with ARAM JOHNSON DO When Within 2-4 days Where: [address] [place] [phone] Allergies Naprosyn (Nausea) aspirin (NAUSEA) Medications Please ask your primary doctor or pharmacist before taking any other medication not listed, including over the counter drugs, herbal medications, vitamins and or supplements as they may interact with your home medications. What How Much When Why Instructions Last Dose New cephalexin (Keflex use cephalexin ) 500 Milligram by mouth Two (2) times a day Duration: 10 Days Printed Prescription Unchanged acetaminophen (Tylenol Extra Strength 500 mg oral tablet) 3 tab by mouth Every 6 hours as needed for as needed for pain Unchanged acetaminophen-hydrocodone ([place] 325- 5 mg oral tablet) 1 tab(s) by mouth Every 6 hours as needed for for pain Headache Duration: 3 Days Unchanged albuterol (Proventil HFA MDI (90 mcg/ inh) inhalation aerosol) 2 puff(s) by inhalation Every 4 hours as needed for as needed for wheezing Managed by pulmonology Unchanged amLODIPine (amLODIPine 10 mg oral tablet) 1 tab(s) by mouth Once a day Duration: 30 Days Unchanged apixaban (Eliquis Starter Pack for Treatment of DVT and PE 5 mg oral tablet) [10mg BID x 7days-then 5mg BID] by mouth Two (2) times a day Duration: 30 Days Unchanged ascorbic acid (Vitamin C 500 mg oral tablet) 1 tab(s) by mouth Once a day Iron deficiency anemia, unspecified Iron deficiency anemia, unspecified Duration: 90 Days Unchanged atogepant (Qulipta 60 mg oral tablet) 1 tab(s) by mouth Once a day Unchanged cholecalciferol (cholecalciferol 1250 mcg (50,000 intl units) oral capsule) 1 cap by mouth Every week Vitamin D deficiency Duration: 30 Days Unchanged citalopram (CeleXA 40 mg oral tablet) 1 tab(s) by mouth Once a day Anxiety and depression Duration: 30 Days Unchanged empagliflozin (Jardiance 25 mg oral tablet) 1 tab(s) by mouth Once a day (in the morning) DM type 2, goal HbA1c < 7.5% Duration: 30 Days Unchanged febuxostat (Uloric 40 mg oral tablet) 1 tab(s) by mouth Every day Gout Duration: 30 Days Unchanged ferrous sulfate (ferrous sulfate 325 mg (65 mg elemental iron) oral delayed release tablet) 1 tab(s) by mouth Once a day Iron deficiency anemia, unspecified Duration: 90 Days Unchanged fluticasone/ umeclidinium/ vilanterol (Trelegy Ellipta 100 mcg-62.5 mcg-25 mcg/ inh inhalation powder) 1 puff(s) by inhalation Once a day Asthma in adult Duration: 90 Days Managed by Pulmonology Unchanged gabapentin (gabapentin 100 mg oral capsule) TAKE 1 CAPSULE BY MOUTH THREE TIMES DAILY Unchanged galcanezumab (Emgality Prefilled Pen 120 mg/ mL subcutaneous solution) Inject 120 mg every month by subcutaneous route. 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 Unchanged nortriptyline (nortriptyline 50 mg oral capsule) 1 cap by mouth Daily at bedtime Unchanged ondansetron (Zofran 4 mg oral tablet) 1 tab(s) by mouth Every 6 hours as needed for Nausea/Vomiting Unchanged ondansetron (Zofran ODT use ondansetron oral tablet, disintegrating ) 4 Milligram by mouth Every 8 hours Duration: 5 Days Unchanged rimegepant (Nurtec ODT 75 mg oral tablet, disintegrating) 1 tab(s) by mouth Every 24 hours as needed for as needed for migraine headache not to exceed 75 mg in 24 hours Unchanged tiZANidine (tiZANidine 4 mg oral capsule) 1 cap by mouth Two (2) times a day Unchanged traMADol (traMADol 50 mg oral tablet) 1 tab(s) by mouth Two (2) times a day Unchanged ubrogepant (Ubrelvy 100 mg oral tablet) 1 tab(s) by mouth Once as needed for as needed for migraine headache may repeat dose in 2 hours if needed. Max dose of 2 tabs in 24 hrs Unchanged valsartan (valsartan 320 mg oral tablet) 1 tab(s) by mouth Once a day Duration: 30 Days Please take this list to your next doctor s visit. Bring all medications you take, including over the counter medications, herbals and other supplements with you to your doctor s visit. Patients and families are reminded to discard old lists and to update any records with all medication providers or retail pharmacies. Medication Leaflets cephalexin (sef a EAGLE in) What is the most important information I should know about cephalexin? You should not use this medicine if you are allergic to cephalexin or to similar antibiotics, such as Ceftin, Cefzil, Omnicef, and others. Tell your doctor if you are allergic to any drugs, especially penicillins or other antibiotics. What is cephalexin? Cephalexin is a cephalosporin (SEF a low spor in) antibiotic that is used to treat bacterial infections of the lungs, ear, skin, bones, bladder, and kidneys. Cephalexin is used to treat infections in adults and children who are at least 1 year old. Cephalexin may also be used for purposes not listed in this medication guide. What should I discuss with my healthcare provider before taking cephalexin? You should not use this medicine if you are allergic to cephalexin or any other cephalosporin antibiotic (cefdinir, cefadroxil, cefoxitin, cefprozil, ceftriaxone, cefuroxime, Omnicef, and others). Tell your doctor if you have ever had: an allergy to any drug (especially penicillin); liver or kidney disease; or intestinal problems, such as colitis. The liquid form of cephalexin may contain sugar. This may affect you if you have diabetes. Tell your doctor if you are or breast-feeding. How should I take cephalexin? Follow all directions on your prescription label and read all medication guides or instruction sheets. Use the medicine exactly as directed. Do not use cephalexin to treat any condition that has not been checked by your doctor. Measure liquid medicine carefully. Use the dosing syringe provided, or use a medicine dose-measuring device (not a kitchen spoon). Use this medicine for the full prescribed length of time, even if your symptoms quickly improve. Skipping doses can increase your risk of infection that is resistant to medication. Cephalexin will not treat a viral infection such as the flu or a common cold. Do not share cephalexin with another person, even if they have the same symptoms you have. This medicine can affect the results of certain medical tests. Tell any doctor who treats you that you are using cephalexin. Store the tablets and capsules at room temperature away from moisture, heat, and light. Store the liquid medicine in the refrigerator. Throw away any unused liquid after 14 days. What happens if I miss a dose? Take the medicine as soon as you can, but skip the missed dose if it is almost time for your next dose. Do not take two doses at one time. What happens if I overdose? Seek emergency medical attention or call the Poison Help line at . Overdose symptoms may include nausea, vomiting, stomach pain, diarrhea, and blood in your urine. What should I avoid while taking cephalexin? Antibiotic medicines can cause diarrhea, which may be a sign of a new infection. If you have diarrhea that is watery or bloody, call your doctor before using anti-diarrhea medicine. What are the possible side effects of cephalexin? Get emergency medical help if you have signs of an allergic reaction (hives, difficult breathing, swelling in your face or throat) or a severe skin reaction (fever, sore throat, burning eyes, skin pain, red or purple skin rash with blistering and peeling). Call your doctor at once if you have: severe stomach pain, diarrhea that is watery or bloody (even if it occurs months after your last dose); unusual tiredness, feeling light-headed or short of breath; easy bruising, unusual bleeding, purple or red spots under your skin; a seizure; pale skin, cold hands and feet; yellowed skin, dark colored urine; fever, weakness; or pain in your side or lower back, painful urination. Common side effects may include: diarrhea; nausea, vomiting; indigestion, stomach pain; or vaginal itching or discharge. This is not a complete list of side effects and others may occur. Call your doctor for medical advice about side effects. You may report side effects to FDA at 0-064-YHB-2282. What other drugs will affect cephalexin? Tell your doctor about all your other medicines, especially: metformin; or probenecid. This list is not complete. Other drugs may affect cephalexin, including prescription and blls-fve-umtjoxe medicines, vitamins, and herbal products. Not all possible drug interactions are listed here. Where can I get more information? Your pharmacist can provide more information about cephalexin. Remember, keep this and all other medicines out of the reach of children, never share your medicines with others, and use this medication only for the indication prescribed. Every effort has been made to ensure that the information provided by [employer]. ('[employer]') is accurate, up-to-date, and complete, but no guarantee is made to that effect. Drug information contained herein may be time sensitive. [employer] information has been compiled for use by healthcare practitioners and consumers in the [place] and therefore [employer] does not warrant that uses outside of the [place] are appropriate, unless specifically indicated otherwise. [employer] drug information does not endorse drugs, diagnose patients or recommend therapy. [facility] drug information is an informational resource designed to assist licensed healthcare practitioners in caring for their patients and/or to serve consumers viewing this service as a supplement to, and not a substitute for, the expertise, skill, knowledge and judgment of healthcare practitioners. The absence of a warning for a given drug or drug combination in no way should be construed to indicate that the drug or drug combination is safe, effective or appropriate for any given patient. [employer] does not assume any responsibility for any aspect of healthcare administered with the aid of information [employer] provides. The information contained herein is not intended to cover all possible uses, directions, precautions, warnings, drug interactions, allergic reactions, or adverse effects. If you have questions about the drugs you are taking, check with your doctor, nurse or pharmacist. Copyright 1434-8748 [employer]. Version: 12.. Revision Date: 09/29/2022. Education Materials Cellulitis Cellulitis is an infection of the deep layers of skin. A break in the skin, such as a cut or scratch, can let bacteria under the skin. If the bacteria get to deep layers of the skin, it can be serious. If not treated, cellulitis can get into the bloodstream and lymph nodes. The infection can then spread throughout the body. This causes serious illness. Cellulitis causes the affected skin to become red, swollen, warm, and sore. The reddened areas have a visible border. An open sore may leak fluid (pus). You may have a fever, chills, and pain. Cellulitis is treated with antibiotics taken for 7 to 10 days. An open sore may be cleaned and covered with cool wet gauze. Symptoms should get better 1 to 2 days after treatment is started. Make sure to take all the antibiotics for the full number of days until they are gone. Keep taking the medicine even if your symptoms go away. Home care Follow these tips: Limit the use of the part of your body with cellulitis. If the infection is on your leg, keep your leg raised while sitting. This will help to reduce swelling. Take all of the antibiotic medicine exactly as directed until it is gone. Do not miss any doses, especially during the first 7 days. Don t stop taking the medicine when your symptoms get better. Keep the affected area clean and dry. Wash your hands with soap and warm water before and after touching your skin. Anyone else who touches your skin should also wash his or her hands. Don't share towels. Follow-up care Follow up with your healthcare provider, or as advised. If your infection does not go away on the first antibiotic, your healthcare provider will prescribe a different one. When to seek medical advice Call your healthcare provider right away if any of these occur: Red areas that spread Swelling or pain that gets worse Fluid leaking from the skin (pus) Fever higher of 100.4 F (38.0 C) or higher after 2 days on antibiotics [id number] [employer]. [address] [place] [address], [place] [address]. All rights reserved. This information is not intended as a substitute for professional medical care. Always follow your healthcare professional's instructions. Additional Information VACCINATE! IT SAVES LIVES! Members of the community who have not yet received the COVID-19 vaccine and would like to receive it can visit one of [facility] vaccine clinics. There are many vaccine clinic locations within the [facility]. For locations and available times, please visit [email or web address] It is important to note that some COVID mobile vaccine clinics are held outdoors and may be canceled in rainy or stormy conditions. To learn more about pediatric vaccinations (ages 5-11), we invite you to visit the [facility] webpage. [email or web address] To learn more about the COVID-19 vaccine, we invite you to visit the CDC website for a list of frequently asked questions. https://www.cdc.gov/coronavirus/ 2019-ncov/vaccines/faq.html [facility] Patient Portal Access Instructions: Stay connected with your healthcare team and access your personal medical information anytime with the [facility] [employer] Patient Portal. If you would like a full copy of your medical records please contact the [facility] Medical Records Department Tuesday through Tuesday between 8a.m. and 4:30p.m. Please follow the directions below to access the portal: 1.Access the email account you provided upon registration to the hospital.2.Look for an invitation email from [facility].3.Open the email and access the invitation link: Accept Invitation to [facility]4.Fill in the required lee to create your account. Sign into [email or web address] with your username and password that you created in the above steps to stay up to date. You can then view a summary of results, a summary of your visits, and the ability to download your summaries to your computer or send the information securely to a physician. Remember that your healthcare information is confidential, so carefully consider who you will allow to register on the [facility] [employer] Patient Portal for access to your information. You can also access the [facility] Patient Portal on the [employer]. Simply click on Health Records under Health Data and then click on the [facility] logo. HOW TO SAFELY DISPOSE OF PRESCRIPTION MEDICATIONS Please use one of the following methods to safely dispose of your unused medications. 1.Use a drug disposal kit: the drug disposal pouch allows you to safely discard your old and unused drugs. Ask your nurse to give you one when you are discharged.2.Visit a local take-back location: Many local pharmacies and police departments have programs that collect old and unwanted prescription drugs. Call your local pharmacy or go to http://Vers[employer].Bluechilli/4P4Jv1z to find one close to you.3.Make use of household items: Use cat litter or old coffee grounds to dispose medications if other options are not available. Mix your drugs with these household products, seal them in an airtight container and throw it into the garbage. Call [facility]: [phone] to be sure your drugs can be disposed of in this way. Some medicines may require a different approach.4.Never flush your medications down the toilet. IF YOU HAVE BEEN PRESCRIBED AN OPIOIDS FOR PAIN If you have been prescribed an opioid (such as hydrocodone, oxycodone or morphine), it is critical to understand the possible side effects and risks of opioid pain medications. Even when taken as directed, opioids can have several side effects including: Tolerance, meaning you might need to take more of a medication for the same pain relief. Nausea, vomiting and/or constipation. Sleepiness, dizziness, dry mouth, confusion, depression or itching. Physical dependence, meaning you have withdrawal symptoms when a medication is stopped ? this can develop within a few days. KNOW YOUR RESPONSIBILITIES It is important to know exactly how much and how often to take the opioid pain medications you are prescribed. Never take opioids in higher amounts or more often than prescribed. Do not combine opioids with alcohol or other drugs that cause drowsiness, such as benzodiazepines, also known as benzos, including diazepam and alprazolam, muscle relaxants or sleep aids. Never sell or share prescription opioids. This is illegal. Store opioids in a secure place and out of reach of others (including children, family, friends and visitors). The last page(s) of this document has been signed and retained as a CHART COPY Signatures Patient Education Materials Cellulitis Skin Infection Medication Leaflets cephalexin My discharge plan and instructions have been reviewed and explained to me and I,KAMALA GRAY understand my current condition and have read and understand these discharge instructions. I have received a written copy of the plan/instructions. If I have questions, I am aware that I should contact my doctor. 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 It does not appear serious at this time. But symptoms of a more serious problem, such as a mild brain injury (concussion) or bruising or bleeding in the brain, may appear later. For this reason, you or someone caring for you will need to watch for the symptoms listed below. Once you re home, also be sure to follow any care instructions you re given. Home care Watch for the following symptoms Seek emergency medical care if you have any of these symptoms over the next hours to days: Headache Nausea or vomiting Dizziness Sensitivity to light or noise Unusual sleepiness or grogginess Trouble falling asleep Personality changes Vision changes Memory loss Confusion Trouble walking or clumsiness Loss of consciousness (even for a short time) Inability to be awakened Stiff neck Weakness or numbness in any part of the body Seizures General care If you were prescribed medicines for pain, use them as directed. Note: Don t take other medicines for pain without talking to your provider first. To help reduce swelling and pain, apply a cold source to the injured area for up to 20 minutes at a time. Do this as often as directed. Use a cold pack or bag of ice wrapped in a thin towel. Never apply a cold source directly to the skin. If you have cuts or scrapes as a result of your head injury, care for them as directed. For the next 24 hours (or longer, if instructed): oDon t drink alcohol or use sedatives or other medicines that make you sleepy. oDon t drive or operate machinery. oDon t do anything strenuous, such as heavy lifting or straining. oLimit tasks that require concentration. This includes reading, using a smartphone or computer, watching TV, and playing video games. oDon t return to sports or other activities that could result in another head injury. Follow-up care Follow up with your healthcare provider, or as directed. If imaging tests were done, they will be reviewed by a doctor. You will be told the results and any new findings that may affect your care. When to seek medical advice Call your healthcare provider right away if any of these occur: Pain doesn t get better or worsens New or increased swelling or bruising Fever of 100.4 F (38 C) or higher, or as directed by your provider Increased redness, warmth, drainage, or bleeding from the injured area Fluid drainage or bleeding from the nose or ears Any depression or bony abnormality in the injured area Persistent confusion or lethargy Bruising behind the ears or bruising around the eyes [phone] [employer] [address] [place] [id number]. All rights reserved. This information is not intended as a substitute for professional medical care. Always follow your healthcare professional's instructions. Follow Up Care 02/17/2023 07:23:32 With:ARAM JOHNSON DO Address: [address] [place] [phone] When:2-4 days [facility] 02-17-2023 Emergency department Discharge summary Discharge Instructions Thank you for allowing [facility] to assist you with your healthcare needs. The following is important discharge information regarding your hospital visit. Diagnosis from Today's Visit Chronic post-concussive headache Dizziness Headache Headache What to Do Next Instructions from Your Care Team No qualifying data available. Post Acute Orders No qualifying data available. You Need to Schedule the Following Appointments Follow Up with ARAM JOHNSON DO When Within 2-4 days Where: [address] [place] [address] [phone] Allergies Naprosyn (Nausea) aspirin (NAUSEA) Medications Please ask your primary doctor or pharmacist before taking any other medication not listed, including over the counter drugs, herbal medications, vitamins and or supplements as they may interact with your home medications. What How Much When Why Instructions Last Dose New acetaminophen-hydrocodone ([place] 325- 5 mg oral tablet) 1 tab(s) by mouth Every 6 hours as needed for for pain Headache Duration: 3 Days Printed Prescription Changed ondansetron (Zofran 4 mg oral tablet) 1 tab(s) by mouth Every 6 hours as needed for Nausea/Vomiting Printed Prescription Changed ondansetron (Zofran ODT use ondansetron oral tablet, disintegrating ) 4 Milligram by mouth Every 8 hours Duration: 5 Days Unchanged acetaminophen (Tylenol Extra Strength 500 mg oral tablet) 3 tab by mouth Every 6 hours as needed for as needed for pain Unchanged albuterol (Proventil HFA MDI (90 mcg/ inh) inhalation aerosol) 2 puff(s) by inhalation Every 4 hours as needed for as needed for wheezing Managed by pulmonology Unchanged amLODIPine (amLODIPine 10 mg oral tablet) 1 tab(s) by mouth Once a day Duration: 30 Days Unchanged apixaban (Eliquis Starter Pack for Treatment of DVT and PE 5 mg oral tablet) [10mg BID x 7days-then 5mg BID] by mouth Two (2) times a day Duration: 30 Days Unchanged ascorbic acid (Vitamin C 500 mg oral tablet) 1 tab(s) by mouth Once a day Iron deficiency anemia, unspecified Iron deficiency anemia, unspecified Duration: 90 Days Unchanged atogepant (Qulipta 60 mg oral tablet) 1 tab(s) by mouth Once a day Unchanged cholecalciferol (cholecalciferol 1250 mcg (50,000 intl units) oral capsule) 1 cap by mouth Every week Vitamin D deficiency Duration: 30 Days Unchanged citalopram (CeleXA 40 mg oral tablet) 1 tab(s) by mouth Once a day Anxiety and depression Duration: 30 Days Unchanged empagliflozin (Jardiance 25 mg oral tablet) 1 tab(s) by mouth Once a day (in the morning) DM type 2, goal HbA1c < 7.5% Duration: 30 Days Unchanged febuxostat (Uloric 40 mg oral tablet) 1 tab(s) by mouth Every day Gout Duration: 30 Days Unchanged ferrous sulfate (ferrous sulfate 325 mg (65 mg elemental iron) oral delayed release tablet) 1 tab(s) by mouth Once a day Iron deficiency anemia, unspecified Duration: 90 Days Unchanged fluticasone/ umeclidinium/ vilanterol (Trelegy Ellipta 100 mcg-62.5 mcg-25 mcg/ inh inhalation powder) 1 puff(s) by inhalation Once a day Asthma in adult Duration: 90 Days Managed by Pulmonology Unchanged gabapentin (gabapentin 100 mg oral capsule) TAKE 1 CAPSULE BY MOUTH THREE TIMES DAILY Unchanged galcanezumab (Emgality Prefilled Pen 120 mg/ mL subcutaneous solution) Inject 120 mg every month by subcutaneous route. 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 Max dose of 2 tabs in 24 hrs Unchanged valsartan (valsartan 320 mg oral tablet) 1 tab(s) by mouth Once a day Duration: 30 Days Please take this list to your next doctor s visit. Bring all medications you take, including over the counter medications, herbals and other supplements with you to your doctor s visit. Patients and families are reminded to discard old lists and to update any records with all medication providers or retail pharmacies. Medication Leaflets acetaminophen and hydrocodone (a SEET a MIN oh fen and alfonzo droe KOE done) Lortab Elixir, Verdrocet What is the most important information I should know about acetaminophen and hydrocodone? MISUSE OF OPIOID MEDICINE CAN CAUSE ADDICTION, OVERDOSE, OR . Keep the medication in a place where others cannot get to it. Taking opioid medicine during may cause life-threatening withdrawal symptoms in the . Fatal side effects can occur if you use opioid medicine with alcohol, or with other drugs that cause drowsiness or slow your breathing. Stop taking this medicine and call your doctor right away if you have skin redness or a rash that spreads and causes blistering and peeling. What is acetaminophen and hydrocodone? Acetaminophen and hydrocodone is a combination medicine used to relieve moderate to severe pain. Acetaminophen and hydrocodone contains an opioid medicine, and may be habit-forming. Acetaminophen and hydrocodone may also be used for purposes not listed in this medication guide. What should I discuss with my healthcare provider before taking acetaminophen and hydrocodone? You should not use this medicine if you are allergic to acetaminophen or hydrocodone, or if you have: severe asthma or breathing problems; or a blockage in your stomach or intestines. Tell your doctor if you have ever had: breathing problems, sleep apnea (breathing stops during sleep); liver disease; a drug or alcohol addiction; kidney disease; a head injury or seizures; urination problems; or problems with your thyroid, pancreas, or gallbladder. If you use opioid medicine while you are , your baby could become dependent on the drug. This can cause life-threatening withdrawal symptoms in the baby after it is born. Babies born dependent on opioids may need medical treatment for several weeks. Ask a doctor before using opioid medicine if you are . Tell your doctor if you notice severe drowsiness or slow breathing in the nursing baby. How should I take acetaminophen and hydrocodone? Follow all directions on your prescription label. Never take this medicine in larger amounts, or for longer than prescribed. An overdose can damage your liver or cause . Tell your doctor if you feel an increased urge to use more of this medicine. Never share this medicine with another person, especially someone with a history of drug abuse or addiction. MISUSE CAN CAUSE ADDICTION, OVERDOSE, OR . Keep the medicine in a place where others cannot get to it. Selling or giving away this medicine is against the law. Measure liquid medicine carefully. Use the dosing syringe provided, or use a medicine dose-measuring device (not a kitchen spoon). If you need surgery or medical tests, tell the doctor ahead of time that you are using this medicine. You should not stop using this medicine suddenly. Follow your doctor's instructions about tapering your dose. Store at room temperature away from moisture and heat. Keep track of your medicine. You should be aware if anyone is using it improperly or without a prescription. Do not keep leftover opioid medication. Just one dose can cause in someone using this medicine accidentally or improperly. Ask your pharmacist where to locate a drug take-back disposal program. If there is no take-back program, flush the unused medicine down the toilet. What happens if I miss a dose? Since this medicine is used for pain, you are not likely to miss a dose. Skip any missed dose if it is almost time for your next dose. Do not use two doses at one time. What happens if I overdose? Seek emergency medical attention or call the Poison Help line at . An overdose of this medicine can be fatal, especially in a child or other person using the medicine without a prescription. Overdose symptoms may include nausea, vomiting, sweating, severe drowsiness, pinpoint pupils, slow breathing, or no breathing. Your doctor may recommend you get naloxone (a medicine to reverse an opioid overdose) and keep it with you at all times. A person caring for you can give the naloxone if you stop breathing or don't wake up. Your caregiver must still get emergency medical help and may need to perform CPR (cardiopulmonary resuscitation) on you while waiting for help to arrive. Anyone can buy naloxone from a pharmacy or local health department. Make sure any person caring for you knows where you keep naloxone and how to use it. What should I avoid while taking acetaminophen and hydrocodone? Avoid driving or operating machinery until you know how this medicine will affect you. Dizziness or drowsiness can cause falls, accidents, or severe injuries. Do not drink alcohol. Dangerous side effects or could occur. Ask a doctor or pharmacist before using any other medicine that may contain acetaminophen (sometimes abbreviated as APAP). Taking certain medications together can lead to a fatal overdose. What are the possible side effects of acetaminophen and hydrocodone? Get emergency medical help if you have signs of an allergic reaction: hives; difficulty breathing; swelling of your face, lips, tongue, or throat. Opioid medicine can slow or stop your breathing, and may occur. A person caring for you should give naloxone and/or seek emergency medical attention if you have slow breathing with long pauses, blue colored lips, or if you are hard to wake up. In rare cases, acetaminophen may cause a severe skin reaction that can be fatal. This could occur even if you have taken acetaminophen in the past and had no reaction. Stop taking this medicine and call your doctor right away if you have skin redness or a rash that spreads and causes blistering and peeling. Call your doctor at once if you have: noisy breathing, sighing, shallow breathing, breathing that stops; a light-headed feeling, like you might pass out; liver problems--nausea, upper stomach pain, tiredness, loss of appetite, dark urine, nito-colored stools, jaundice (yellowing of the skin or eyes); low cortisol levels-- nausea, vomiting, loss of appetite, dizziness, worsening tiredness or weakness; o high levels of serotonin in the body--agitation, hallucinations, fever, sweating, shivering, fast heart rate, muscle stiffness, twitching, loss of coordination, nausea, vomiting, diarrhea. Serious breathing problems may be more likely in older adults and in those who are debilitated or have wasting syndrome or chronic breathing disorders. Common side effects include: dizziness, drowsiness, feeling tired; nausea, vomiting, stomach pain; constipation; or headache. This is not a complete list of side effects and others may occur. Call your doctor for medical advice about side effects. You may report side effects to FDA at 1-469-YJF-0827. What other drugs will affect acetaminophen and hydrocodone? You may have breathing problems or withdrawal symptoms if you start or stop taking certain other medicines. Tell your doctor if you also use an antibiotic, antifungal medication, heart or blood pressure medication, seizure medication, or medicine to treat HIV or hepatitis C. Opioid medication can interact with many other drugs and cause dangerous side effects or . Be sure your doctor knows if you also use: cold or allergy medicines, bronchodilator asthma/COPD medication, or a diuretic ('water pill'); medicines for motion sickness, irritable bowel syndrome, or overactive bladder; other opioids--opioid pain medicine or prescription cough medicine; a sedative like Valium--diazepam, alprazolam, lorazepam, Xanax, Klonopin, Versed, and others; drugs that make you sleepy or slow your breathing--a sleeping pill, muscle relaxer, medicine to treat mood disorders or mental illness; drugs that affect serotonin levels in your body--a stimulant, or medicine for depression, Parkinson's disease, migraine headaches, serious infections, or nausea and vomiting. This list is not complete. Other drugs may affect acetaminophen and hydrocodone, including prescription and [id number] medicines, vitamins, and herbal products. Not all possible interactions are listed here. Where can I get more information? Your doctor or pharmacist can provide more information about acetaminophen and hydrocodone. Remember, keep this and all other medicines out of the reach of children, never share your medicines with others, and use this medication only for the indication prescribed. Every effort has been made to ensure that the information provided by [employer]') is accurate, up-to-date, and complete, but no guarantee is made to that effect. Drug information contained herein may be time sensitive. [employer] information has been compiled for use by healthcare practitioners and consumers in the [place] and therefore [employer] does not warrant that uses outside of the [place] are appropriate, unless specifically indicated otherwise. [employer] drug information does not endorse drugs, diagnose patients or recommend therapy. [employer] drug information is an informational resource designed to assist licensed healthcare practitioners in caring for their patients and/or to serve consumers viewing this service as a supplement to, and not a substitute for, the expertise, skill, knowledge and judgment of healthcare practitioners. The absence of a warning for a given drug or drug combination in no way should be construed to indicate that the drug or drug combination is safe, effective or appropriate for any given patient. [facility] does not assume any responsibility for any aspect of healthcare administered with the aid of information [facility] provides. The information contained herein is not intended to cover all possible uses, directions, precautions, warnings, drug interactions, allergic reactions, or adverse effects. If you have questions about the drugs you are taking, check with your doctor, nurse or pharmacist. Copyright 1873-7852 [facility]. Version: 19.. Revision Date: 10/18/2022. ondansetron (oral) (on JANICE se nano) What is the most important information I should know about ondansetron? You should not use ondansetron if you are also using apomorphine (Apokyn). What is ondansetron? Ondansetron blocks the actions of chemicals in the body that can trigger nausea and vomiting. Ondansetron is used to prevent nausea and vomiting that may be caused by surgery, cancer chemotherapy, or radiation treatment. Ondansetron may be used for purposes not listed in this medication guide. What should I discuss with my health care provider before taking ondansetron? You should not use ondansetron if: you are also using apomorphine (Apokyn); or you are allergic to ondansetron or similar medicines (dolasetron, granisetron, palonosetron). To make sure ondansetron is safe for you, tell your doctor if you have: liver disease; an electrolyte imbalance (such as low levels of potassium or magnesium in your blood); congestive heart failure, slow heartbeats; a personal or family history of long QT syndrome; or a blockage in your digestive tract (stomach or intestines). Ondansetron is not expected to harm an unborn baby. Tell your doctor if you are . It is not known whether ondansetron passes into breast milk or if it could harm a nursing baby. Tell your doctor if you are breast-feeding a baby. Ondansetron is not approved for use by anyone younger than 4 years old. Ondansetron orally disintegrating tablets may contain phenylalanine. Tell your doctor if you have phenylketonuria (PKU). How should I take ondansetron? Follow all directions on your prescription label. Do not take this medicine in larger or smaller amounts or for longer than recommended. Ondansetron can be taken with or without food. The first dose of ondansetron is usually taken before the start of your surgery, chemotherapy, or radiation treatment. Follow your doctor's dosing instructions very carefully. Take the ondansetron regular tablet with a full glass of water. To take the orally disintegrating tablet (Zofran ODT): Keep the tablet in its blister pack until you are ready to take it. Open the package and peel back the foil. Do not push a tablet through the foil or you may damage the tablet. Use dry hands to remove the tablet and place it in your mouth. Do not swallow the tablet whole. Allow it to dissolve in your mouth without chewing. Swallow several times as the tablet dissolves. To use ondansetron oral soluble film (strip) (Zuplenz): Keep the strip in the foil pouch until you are ready to use the medicine. Using dry hands, remove the strip and place it on your tongue. It will begin to dissolve right away. Do not swallow the strip whole. Allow it to dissolve in your mouth without chewing. Swallow several times after the strip dissolves. If desired, you may drink liquid to help swallow the dissolved strip. Wash your hands after using Zuplenz. Measure liquid medicine with the dosing syringe provided, or with a special dose-measuring spoon or medicine cup. If you do not have a dose-measuring device, ask your pharmacist for one. Store at room temperature away from moisture, heat, and light. Store liquid medicine in an upright position. What happens if I miss a dose? Take the missed dose as soon as you remember. Skip the missed dose if it is almost time for your next scheduled dose. Do not take extra medicine to make up the missed dose. What happens if I overdose? Seek emergency medical attention or call the Poison Help line at . Overdose symptoms may include sudden loss of vision, severe constipation, feeling light-headed, or fainting. What should I avoid while taking ondansetron? Ondansetron may impair your thinking or reactions. Be careful if you drive or do anything that requires you to be alert. What are the possible side effects of ondansetron? Get emergency medical help if you have signs of an allergic reaction: rash, hives; fever, chills, difficult breathing; swelling of your face, lips, tongue, or throat. Call your doctor at once if you have: severe constipation, stomach pain, or bloating; headache with chest pain and severe dizziness, fainting, fast or pounding heartbeats; fast or pounding heartbeats; jaundice (yellowing of the skin or eyes); blurred vision or temporary vision loss (lasting from only a few minutes to several hours); high levels of serotonin in the body--agitation, hallucinations, fever, fast heart rate, overactive reflexes, nausea, vomiting, diarrhea, loss of coordination, fainting. Common side effects may include: diarrhea or constipation; headache; drowsiness; or tired feeling. This is not a complete list of side effects and others may occur. Call your doctor for medical advice about side effects. You may report side effects to FDA at 2-500-GDC-2615. What other drugs will affect ondansetron? Ondansetron can cause a serious heart problem, especially if you use certain medicines at the same time, including antibiotics, antidepressants, heart rhythm medicine, antipsychotic medicines, and medicines to treat cancer, malaria, HIV or AIDS. Tell your doctor about all medicines you use, and those you start or stop using during your treatment with ondansetron. Taking ondansetron while you are using certain other medicines can cause high levels of serotonin to build up in your body, a condition called 'serotonin syndrome,' which can be fatal. Tell your doctor if you also use: medicine to treat depression; medicine to treat a psychiatric disorder; a narcotic (opioid) medication; or medicine to prevent nausea and vomiting. This list is not complete and many other drugs can interact with ondansetron. This includes prescription and sgff-gwo-cwinfga medicines, vitamins, and herbal products. Give a list of all your medicines to any healthcare provider who treats you. Where can I get more information? Your pharmacist can provide more information about ondansetron. Remember, keep this and all other medicines out of the reach of children, never share your medicines with others, and use this medication only for the indication prescribed. Every effort has been made to ensure that the information provided by [employer] ('[employer]') is accurate, up-to-date, and complete, but no guarantee is made to that effect. Drug information contained herein may be time sensitive. [employer] information has been compiled for use by healthcare practitioners and consumers in the [place] and therefore [employer] does not warrant that uses outside of the [place] are appropriate, unless specifically indicated otherwise. [employer] drug information does not endorse drugs, diagnose patients or recommend therapy. [facility] drug information is an informational resource designed to assist licensed healthcare practitioners in caring for their patients and/or to serve consumers viewing this service as a supplement to, and not a substitute for, the expertise, skill, knowledge and judgment of healthcare practitioners. The absence of a warning for a given drug or drug combination in no way should be construed to indicate that the drug or drug combination is safe, effective or appropriate for any given patient. [employer] does not assume any responsibility for any aspect of healthcare administered with the aid of information [employer] provides. The information contained herein is not intended to cover all possible uses, directions, precautions, warnings, drug interactions, allergic reactions, or adverse effects. If you have questions about the drugs you are taking, check with your doctor, nurse or pharmacist. Copyright 3610-6241 [employer]. Version: 16.01. Revision Date: 09/30/2022. Education Materials Head Injury (Adult) You have a head injury. It does not appear serious at this time. But symptoms of a more serious problem, such as a mild brain injury (concussion) or bruising or bleeding in the brain, may appear later. For this reason, you or someone caring for you will need to watch for the symptoms listed below. Once you re home, also be sure to follow any care instructions you re given. Home care Watch for the following symptoms Seek emergency medical care if you have any of these symptoms over the next hours to days: Headache Nausea or vomiting Dizziness Sensitivity to light or noise Unusual sleepiness or grogginess Trouble falling asleep Personality changes Vision changes Memory loss Confusion Trouble walking or clumsiness Loss of consciousness (even for a short time) Inability to be awakened Stiff neck Weakness or numbness in any part of the body Seizures General care If you were prescribed medicines for pain, use them as directed. Note: Don t take other medicines for pain without talking to your provider first. To help reduce swelling and pain, apply a cold source to the injured area for up to 20 minutes at a time. Do this as often as directed. Use a cold pack or bag of ice wrapped in a thin towel. Never apply a cold source directly to the skin. If you have cuts or scrapes as a result of your head injury, care for them as directed. For the next 24 hours (or longer, if instructed): oDon t drink alcohol or use sedatives or other medicines that make you sleepy. oDon t drive or operate machinery. oDon t do anything strenuous, such as heavy lifting or straining. oLimit tasks that require concentration. This includes reading, using a smartphone or computer, watching TV, and playing video games. oDon t return to sports or other activities that could result in another head injury. Follow-up care Follow up with your healthcare provider, or as directed. If imaging tests were done, they will be reviewed by a doctor. You will be told the results and any new findings that may affect your care. When to seek medical advice Call your healthcare provider right away if any of these occur: Pain doesn t get better or worsens New or increased swelling or bruising Fever of 100.4 F (38 C) or higher, or as directed by your provider Increased redness, warmth, drainage, or bleeding from the injured area Fluid drainage or bleeding from the nose or ears Any depression or bony abnormality in the injured area Persistent confusion or lethargy Bruising behind the ears or bruising around the eyes [id number] [employer] [address] [place] [address]. All rights reserved. This information is not intended as a substitute for professional medical care. Always follow your healthcare professional's instructions. Additional Information VACCINATE! IT SAVES LIVES! Members of the community who have not yet received the COVID-19 vaccine and would like to receive it can visit one of [facility] vaccine clinics. There are many vaccine clinic locations within the [facility]. For locations and available times, please visit [email or web address] [email or web address] It is important to note that some COVID mobile vaccine clinics are held outdoors and may be canceled in rainy or stormy conditions. To learn more about pediatric vaccinations (ages 5-11), we invite you to visit the [facility] webpage. https://www.[email or web address].org/p ages/6801-Edrme-Uifktvezbhc-Freq ntvlvs-Digni-Virbtjlyj.html To learn more about the COVID-19 vaccine, we invite you to visit the CDC website for a list of frequently asked questions. https://www.cdc.gov/coronavirus/ 2019-ncov/vaccines/faq.html [facility] Patient Portal Access Instructions: Stay connected with your healthcare team and access your personal medical information anytime with the [facility] Patient Portal. If you would like a full copy of your medical records please contact the [facility] Medical Records Department Tuesday through Tuesday between 8a.m. and 4:30p.m. Please follow the directions below to access the portal: 1.Access the email account you provided upon registration to the [facility].2.Look for an invitation email from [facility].3.Open the email and access the invitation link: Accept Invitation to [facility].Fill in the required lee to create your account. Sign into [email or web address] with your username and password that you created in the above steps to stay up to date. You can then view a summary of results, a summary of your visits, and the ability to download your summaries to your computer or send the information securely to a physician. Remember that your healthcare information is confidential, so carefully consider who you will allow to register on the [facility] Patient Portal for access to your information. You can also access the [facility] Patient Portal on the [employer]er. Simply click on Health Records under Health Data and then click on the [employer] logo. HOW TO SAFELY DISPOSE OF PRESCRIPTION MEDICATIONS Please use one of the following methods to safely dispose of your unused medications. 1.Use a drug disposal kit: the drug disposal pouch allows you to safely discard your old and unused drugs. Ask your nurse to give you one when you are discharged.2.Visit a local take-back location: Many local pharmacies and police departments have programs that collect old and unwanted prescription drugs. Call your local pharmacy or go to http://[employer].Bluechilli/0F1Xi1j to find one close to you.3.Make use of household items: Use cat litter or old coffee grounds to dispose medications if other options are not available. Mix your drugs with these household products, seal them in an airtight container and throw it into the garbage. Call [facility]: [phone] to be sure your drugs can be disposed of in this way. Some medicines may require a different approach.4.Never flush your medications down the toilet. IF YOU HAVE BEEN PRESCRIBED AN OPIOIDS FOR PAIN If you have been prescribed an opioid (such as hydrocodone, oxycodone or morphine), it is critical to understand the possible side effects and risks of opioid pain medications. Even when taken as directed, opioids can have several side effects including: Tolerance, meaning you might need to take more of a medication for the same pain relief. Nausea, vomiting and/or constipation. Sleepiness, dizziness, dry mouth, confusion, depression or itching. Physical dependence, meaning you have withdrawal symptoms when a medication is stopped ? this can develop within a few days. KNOW YOUR RESPONSIBILITIES It is important to know exactly how much and how often to take the opioid pain medications you are prescribed. Never take opioids in higher amounts or more often than prescribed. Do not combine opioids with alcohol or other drugs that cause drowsiness, such as benzodiazepines, also known as benzos, including diazepam and alprazolam, muscle relaxants or sleep aids. Never sell or share prescription opioids. This is illegal. Store opioids in a secure place and out of reach of others (including children, family, friends and visitors). The last page(s) of this document has been signed and retained as a CHART COPY Signatures Patient Education Materials Head Injury (Adult) Medication Leaflets acetaminophen and hydrocodone, ondansetron (oral) My discharge plan and instructions have been reviewed and explained to me and I,KAMALA GRAY L understand my current condition and have read and understand these discharge instructions. I have received a written copy of the plan/instructions. If I have questions, I am aware that I should contact my doctor. 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 This exam was performed according to our departmental dose optimization program, and includes the following measures where applicable: automated exposure control, adjustment of the mAs and/or kVp according to patient size and/or exam, and an iterative reconstruction algorithm. COMPARISON: CT head 10/03/2022 HISTORY: ORDERING SYSTEM PROVIDED HISTORY: Reason for Exam: trauma FINDINGS: Parenchyma: No acute intracranial hemorrhage, midline shift, mass effect or acute ischemic infarct is demonstrated. The lancaster-white matter junctions are preserved. No space occupying intra-axial masses or extra-axial fluid collections are seen. Ventricles: No evidence of hydrocephalus or ventricular effacement. Vessels: Mild atherosclerotic calcifications of the bilateral distal vertebral and internal carotid arteries. Orbits: Unremarkable. Calvarium: Unchanged diffusely thickened calvarium. Paranasal sinuses: Clear. Mastoid sinuses: Clear. Scalp: Left parietal, posterior temporal, and suboccipital scalp hematoma and soft tissue swelling. Hematoma measures 3.5 cm in long dimension and contains a gas locule. No radiopaque foreign body. IMPRESSION: No acute intracranial pathology. Left-sided scalp hematoma and soft tissue swelling and a gas locule. Interpreted by: Orlin Trujillo MD Preliminary Report By: Orlin Trujillo MD Electronically signed By Orlin Trujillo MD Dictated Date: 02/17/2023 9:22:19 AM Prelim Date: 02/17/2023 9:26:46 AM Sign Date: 02/17/2023 9:26:46 AM Ordering Provider: DAQUAN MAI [facility] 01-27-2023 Note . MICRO - Microbiology PROCEDURE: Urine Culture [*1] SOURCE: Urine, Clean Catch BODY SITE: COLLECTED DATE/TIME: 01/23/2023 09:46 EST RECEIVED DATE/TIME: 01/23/2023 21:45 EST START DATE/TIME: 01/23/2023 21:45 EST FREE TEXT SOURCE: FINAL REPORTS Final Report [] Verified Date/Time/Personnel: 01/27/2023 08:03 EST >100,000 cfu/ml Klebsiella pneumoniae >100,000 cfu/ml Pseudomonas aeruginosa PRELIMINARY REPORTS Preliminary Report [] Verified Date/Time/Personnel: 01/26/2023 11:06 EST >100,000 cfu/ml Klebsiella pneumoniae >100,000 cfu/ml Pseudomonas aeruginosa AWILDA to follow Preliminary Report [] Verified Date/Time/Personnel: 01/25/2023 07:43 EST >100,000 cfu/ml Klebsiella pneumoniae Final report to follow. Preliminary Report [] Verified Date/Time/Personnel: 01/24/2023 10:58 EST >100,000 cfu/ml Klebsiella pneumoniae AWILDA to follow SUSCEPTIBILITY RESULTS Klebsiella pneumoniae Antibiotic AWILDA Dilut AWILDA Inter Ampicillin >16 Resistant Ampicillin/ <=4/2 Susceptible Sulbactam Aztreonam <=4 Susceptible Cefazolin <=2 Susceptible Ciprofloxacin <=0.25 Susceptible Ertapenem <=0.5 Susceptible Gentamicin <=2 Susceptible ID Panel Not Not Applicable Applicable Imipenem <=1 Susceptible Levofloxacin <=0.5 Susceptible Meropenem <=1 Susceptible Minocycline <=4 Susceptible Nitrofurantoin <=32 Susceptible Piperacillin/ <=8 Susceptible Tazobactam Trimethoprim/ <=0.5/9.5 Susceptible Sulfa Pseudomonas aeruginosa Antibiotic AWILDA Dilut AWILDA Inter Aztreonam <=4 Susceptible Cefepime 4 Susceptible Ceftazidime 4 Susceptible ID Panel Not Not Applicable Applicable Imipenem 2 Susceptible Levofloxacin <=0.5 Susceptible Meropenem <=1 Susceptible MICRO - Microbiology SUSCEPTIBILITY RESULTS Pseudomonas aeruginosa Antibiotic AWILDA Dilut AWILDA Inter Piperacillin/ <=8 Susceptible Tazobactam Tobramycin <=2 Susceptible Performing Locations *1: This test was performed at: [address], [address] [place] [address] ([place]) 01-23-2023 Hospital Discharge instructions Patient Education 01/23/2023 12:17:26 AA Blank DI (CUSTOM) Result type:CT Abd/Pelvis w/ IV Contrast Only Result date:January 23, 2023 11:34 EST Result status:Auth (Verified) Result title:CT ABD/PELVIS W/ IV CONTRAST ONLY Performed by:ORLIN TRUJILLO MD on January 23, 2023 11:08 EST Cosigned by:ORLIN TRUJILLO MD Verified by:ORLIN TRUJILLO MD on January 23, 2023 11:34 EST Encounter info:[id number], JOHNY HANNAH, Emergency, 01/23/2023 - Contributor system:[email or web address] * Final Report * [id number] ORIGINAL EXAMINATION: CT OF THE ABDOMEN AND PELVIS WITH CONTRAST TECHNIQUE: CT of the Abdomen and Pelvis with intravenous contrast was performed. Axial, sagittal and coronal reformatted images were reviewed. Low dose CT acquisition technique included one of the following options: 1. Automated exposure control, 2. Adjustment of the MA and/or KV according to patient size, or 3. Use of iterative reconstruction. COMPARISON: CT abdomen pelvis 12/24/2022 HISTORY: ORDERING SYSTEM PROVIDED HISTORY: Reason for Exam: Abdominal pain FINDINGS: Support devices: None Lower thorax: Clear lung bases. Coronary and aortic atherosclerotic calcification. Solid organs: Redemonstrated is a hypodense area within the medial segment right lobe of the liver measuring approximately 3 cm with considerations including cyst and hemangioma. The a patent parenchyma is overall heterogeneous. The spleen, pancreas, and adrenal glands are unremarkable. An accessory spleen is noted. Biliary system: No evidence of biliary ductal dilatation. Gallbladder appears normal. Genitourinary: The kidneys are normal in appearance bilaterally with no evidence of hydronephrosis. Bilateral renal parapelvic cysts are similar to the examination of reference. Punctate nonobstructing bilateral renal calculi are noted. The urinary bladder is unremarkable. Gastrointestinal: The stomach is unremarkable. The small bowel is nondistended. Scattered retained fecal matter is seen throughout the colon. No evidence of a bowel obstruction. Scattered colonic diverticula without diverticulitis. Appendix: Within normal limits without adjacent fat stranding. Peritoneum: No ascites, pneumoperitoneum, or abscess. Abdominal wall: No ventral wall hernia. Pelvic organs: Atrophic uterus. Lymph nodes: No adenopathy by size criteria. Vascular structures: Atherosclerotic calcifications of a nonaneurysmal abdominal aorta. Osseous and soft tissue structures: Bone windows demonstrate no suspicious osteolytic or osteoblastic lesions. No fracture identified. Mild spondylotic changes of the thoracic and lumbar spine. IMPRESSION: 1. Heterogeneous hepatic parenchyma similar to the prior examination containing a 3 cm hypodensity within the left medial Paddock lobe. Further characterization with ultrasound is advised. 2. Colonic diverticulosis without diverticulitis. 3. Nonobstructing punctate bilateral renal calculi and parapelvic cysts. Interpreted by: Orlin Trujillo MD Preliminary Report By: Orlin Trujillo MD Electronically signed By Orlin Trujillo MD Dictated Date: 01/23/2023 11:55:20 AM Prelim Date: 01/23/2023 12:02:52 PM Sign Date: 01/23/2023 12:02:52 PM Ordering Provider: AUDRA PHILLIPS IMAGE This document has an image Document Released: 02/14/2006 Document Revised: 01/31/2013 Document Reviewed: 02/15/2014 ExitCare Patient Information 2015 [employer]. This information is not intended to replace advice given to you by your health care provider. Make sure you discuss any questions you have with your health care provider. 01/23/2023 12:17:18 Arthralgia Arthralgia Arthralgia is the term for pain in or around the joint. It is a symptom, not a disease. This pain may involve one or more joints. In some cases, the pain moves from joint to joint. There are many causes for joint pain. These include: Injury Osteoarthritis (wearing out of the joint surface) Gout (inflammation of the joint due to crystals in the joint fluid) Infection inside the joint Bursitis (inflammation of the fluid-filled sacs around the joint) Autoimmune disorders such as rheumatoid arthritis or lupus Tendonitis (inflammation of chords that attach muscle to bone) Home care Rest the involved joint(s) until your symptoms improve. You may be prescribed pain medicine. If none is prescribed, you may use acetaminophen or ibuprofen to control pain and inflammation. Follow-up care Follow up with your healthcare provider or as advised. When to seek medical advice Contact your healthcare provider right away if any of the following occurs: Pain, swelling, or redness of joint increases Pain worsens or recurs after a period of improvement Pain moves to other joints You cannot bear weight on the affected joint You cannot move the affected joint Joint appears deformed New rash appears Fever of 100.4 F (38 C) or higher, or as directed by your healthcare provider [id number] [employer]. [address] [place] [address]. All rights reserved. This information is not intended as a substitute for professional medical care. Always follow your healthcare professional's instructions. 01/23/2023 09:23:56 Abdominal Pain Abdominal Pain Abdominal pain is pain in the stomach or belly area. Everyone has this pain from time to time. In many cases it goes away on its own. But abdominal pain can sometimes be due to a serious problem, such as appendicitis. So it s important to know when to get help. Causes of abdominal pain There are many possible causes of abdominal pain. Common causes in adults include: Constipation, diarrhea, or gas Stomach acid flowing back up into the esophagus (acid reflux or heartburn) Severe acid reflux, called GERD (gastroesophageal reflux disease) A sore in the lining of the stomach or small intestine (peptic ulcer) Inflammation of the gallbladder, liver, or pancreas Gallstones or kidney stones Appendicitis Intestinal blockage An internal organ pushing through a muscle or other tissue (hernia) Urinary tract infections In women, menstrual cramps, fibroids, ovarian cysts, pelvic inflammatory disease, or endometriosis Inflammation or infection of the intestines, including Crohn's disease and ulcerative colitis Irritable bowel syndrome Diagnosing the cause of abdominal pain Your healthcare provider will give you a physical exam help find the cause of your pain. If needed, you will have tests. Belly pain has many possible causes. So it can be hard to find the reason for your pain. Giving details about your pain can help. Tell your provider where and when you feel the pain, and what makes it better or worse. Also let your provider know if you have other symptoms such as: Fever Tiredness Upset stomach (nausea) Vomiting Changes in bathroom habits Blood in the stool or black, tarry stool Weight loss that you can't explain (involuntary weight loss?) Also report any family history of stomach or intestinal problems, or cancers. Tell your provider about all your alcohol use and drug use. Tell your provider about all medicines you use, including herbs, vitamins, and supplements. Treating abdominal pain Some causes of pain need emergency medical treatment right away. These include appendicitis or a bowel blockage. Other problems can be treated with rest, fluids, or medicines. Your healthcare provider can give you specific instructions for treatment or self-care based on what is causing your pain. If you have vomiting or diarrhea, sip water or other clear fluids. When you are ready to eat solid foods again, start with small amounts of kgep-mj-vbpmog, low-fat foods. These include apple sauce, toast, or crackers. When to get medical care Call 911 or go to the hospital right away if you: Can t pass stool and are vomiting Are vomiting blood or have bloody diarrhea or black, tarry diarrhea Have chest, neck, or shoulder pain Feel like you might pass out Have pain in your shoulder blades with nausea Have sudden, severe belly pain Have new, severe pain unlike any you have felt before Have a belly that is rigid, hard, and hurts to touch Call your healthcare provider if you have: Pain for more than 5 days Bloating for more than 2 days Diarrhea for more than 5 days A fever of 100.4 F (38 C) or higher, or as directed by your healthcare provider Pain that gets worse Weight loss for no reason Continued lack of appetite Blood in your stool How to prevent abdominal pain Here are some tips to help prevent abdominal pain: Eat smaller amounts of food at each meal. Don't eat greasy, fried, or other high-fat foods. Don't eat foods that give you gas. Exercise regularly. Drink plenty of fluids. To help prevent GERD symptoms: Quit smoking. Reduce alcohol and foods that increase stomach acid. Don't use aspirin or eukv-mwm-cburuux pain and fever medicines, if possible. This includes nonsteroidal anti-inflammatory drugs (NSAIDs). Lose excess weight. Finish eating at least 2 hours before you go to bed or lie down. Raise the head of your bed. [id number] [employer]. [address] [place] [address]. All rights reserved. This information is not intended as a substitute for professional medical care. Always follow your healthcare professional's instructions. Follow Up Care 01/23/2023 09:05:26 With:Go to emergency room if symptoms worsen Address:Unknown When:2-4 days With:ARAM JOHNSON DO Address: [facility] [place] [address] [phone] When:2-4 days [facility] 01-23-2023 Emergency department Discharge summary Discharge Instructions Thank you for allowing [facility] to assist you with your healthcare needs. The following is important discharge information regarding your hospital visit. Diagnosis from Today's Visit Abdominal pain Abdominal pain Ankle pain Ankle pain-swelling UTI - Urinary tract infection What to Do Next Instructions from Your Care Team Take Keflex as prescribed for UTI. Drink plenty of fluids. X-ray of the ankle negative for fracture did show some soft tissue swelling however you have been up and ambulatory here able to bear weight. Did discuss possibly treating for ankle sprain but recommend conservative management at this time. Use Luis bandage as needed keep leg elevated and use ice as needed. CT abdomen pelvis did show hypodense spots in the liver recommend follow-up with your primary care provider and potential ultrasound as an outpatient. Your lipase was just barely above normal not consistent with pancreatitis and you did not have pain around the area of the pancreas. Urine did show some signs of infection take Keflex as prescribed. Follow-up with your primary care provider. Return to the emergency department if you experience worsening symptoms or any other care concern. No qualifying data available. Post Acute Orders No qualifying data available. You Need to Schedule the Following Appointments Follow Up with Go to emergency room if symptoms worsen When Within 2-4 days Follow Up with ARAM JOHNSON DO When Within 2-4 days Where: [address] [place] [address]- [phone] Allergies Naprosyn (Nausea) aspirin (NAUSEA) Medications Please ask your primary doctor or pharmacist before taking any other medication not listed, including over the counter drugs, herbal medications, vitamins and or supplements as they may interact with your home medications. What How Much When Why Instructions Last Dose New cephalexin (cephalexin 500 mg oral capsule) 1 cap by mouth Four (4) times a day Duration: 7 Days Printed Prescription Unchanged acetaminophen (Tylenol Extra Strength 500 mg oral tablet) 3 tab by mouth Every 6 hours as needed for as needed for pain Unchanged albuterol (Proventil HFA MDI (90 mcg/ inh) inhalation aerosol) 2 puff(s) by inhalation Every 4 hours as needed for as needed for wheezing Managed by pulmonology Unchanged amLODIPine (amLODIPine 10 mg oral tablet) 1 tab(s) by mouth Once a day Duration: 30 Days Unchanged apixaban (Eliquis Starter Pack for Treatment of DVT and PE 5 mg oral tablet) [10mg BID x 7days-then 5mg BID] by mouth Two (2) times a day Duration: 30 Days Unchanged ascorbic acid (Vitamin C 500 mg oral tablet) 1 tab(s) by mouth Once a day Iron deficiency anemia, unspecified Iron deficiency anemia, unspecified Duration: 90 Days Unchanged atogepant (Qulipta 60 mg oral tablet) 1 tab(s) by mouth Once a day Unchanged cholecalciferol (cholecalciferol 1250 mcg (50,000 intl units) oral capsule) 1 cap by mouth Every week Vitamin D deficiency Duration: 30 Days Unchanged citalopram (CeleXA 40 mg oral tablet) 1 tab(s) by mouth Once a day Anxiety and depression Duration: 30 Days Unchanged empagliflozin (Jardiance 25 mg oral tablet) 1 tab(s) by mouth Once a day (in the morning) DM type 2, goal HbA1c < 7.5% Duration: 30 Days Unchanged febuxostat (Uloric 40 mg oral tablet) 1 tab(s) by mouth Every day Gout Duration: 30 Days Unchanged ferrous sulfate (ferrous sulfate 325 mg (65 mg elemental iron) oral delayed release tablet) 1 tab(s) by mouth Once a day Iron deficiency anemia, unspecified Duration: 90 Days Unchanged fluticasone/ umeclidinium/ vilanterol (Trelegy Ellipta 100 mcg-62.5 mcg-25 mcg/ inh inhalation powder) 1 puff(s) by inhalation Once a day Asthma in adult Duration: 90 Days Managed by Pulmonology Unchanged gabapentin (gabapentin 100 mg oral capsule) TAKE 1 CAPSULE BY MOUTH THREE TIMES DAILY Unchanged galcanezumab (Emgality Prefilled Pen 120 mg/ mL subcutaneous solution) Inject 120 mg every month by subcutaneous route. 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 Unchanged nortriptyline (nortriptyline 50 mg oral capsule) 1 cap by mouth Daily at bedtime Unchanged ondansetron (Zofran ODT use ondansetron oral tablet, disintegrating ) 4 Milligram by mouth Every 8 hours Duration: 5 Days Unchanged rimegepant (Nurtec ODT 75 mg oral tablet, disintegrating) 1 tab(s) by mouth Every 24 hours as needed for as needed for migraine headache not to exceed 75 mg in 24 hours Unchanged tiZANidine (tiZANidine 4 mg oral capsule) 1 cap by mouth Two (2) times a day Unchanged traMADol (traMADol 50 mg oral tablet) 1 tab(s) by mouth Two (2) times a day Unchanged ubrogepant (Ubrelvy 100 mg oral tablet) 1 tab(s) by mouth Once as needed for as needed for migraine headache may repeat dose in 2 hours if needed. Max dose of 2 tabs in 24 hrs Unchanged valsartan (valsartan 320 mg oral tablet) 1 tab(s) by mouth Once a day Duration: 30 Days Please take this list to your next doctor s visit. Bring all medications you take, including over the counter medications, herbals and other supplements with you to your doctor s visit. Patients and families are reminded to discard old lists and to update any records with all medication providers or retail pharmacies. Medication Leaflets cephalexin (sef a EAGLE in) What is the most important information I should know about cephalexin? You should not use this medicine if you are allergic to cephalexin or to similar antibiotics, such as Ceftin, Cefzil, Omnicef, and others. Tell your doctor if you are allergic to any drugs, especially penicillins or other antibiotics. What is cephalexin? Cephalexin is a cephalosporin (SEF a low spor in) antibiotic that is used to treat bacterial infections of the lungs, ear, skin, bones, bladder, and kidneys. Cephalexin is used to treat infections in adults and children who are at least 1 year old. Cephalexin may also be used for purposes not listed in this medication guide. What should I discuss with my healthcare provider before taking cephalexin? You should not use this medicine if you are allergic to cephalexin or any other cephalosporin antibiotic (cefdinir, cefadroxil, cefoxitin, cefprozil, ceftriaxone, cefuroxime, Omnicef, and others). Tell your doctor if you have ever had: an allergy to any drug (especially penicillin); liver or kidney disease; or intestinal problems, such as colitis. The liquid form of cephalexin may contain sugar. This may affect you if you have diabetes. Tell your doctor if you are or breast-feeding. How should I take cephalexin? Follow all directions on your prescription label and read all medication guides or instruction sheets. Use the medicine exactly as directed. Do not use cephalexin to treat any condition that has not been checked by your doctor. Measure liquid medicine carefully. Use the dosing syringe provided, or use a medicine dose-measuring device (not a kitchen spoon). Use this medicine for the full prescribed length of time, even if your symptoms quickly improve. Skipping doses can increase your risk of infection that is resistant to medication. Cephalexin will not treat a viral infection such as the flu or a common cold. Do not share cephalexin with another person, even if they have the same symptoms you have. This medicine can affect the results of certain medical tests. Tell any doctor who treats you that you are using cephalexin. Store the tablets and capsules at room temperature away from moisture, heat, and light. Store the liquid medicine in the refrigerator. Throw away any unused liquid after 14 days. What happens if I miss a dose? Take the medicine as soon as you can, but skip the missed dose if it is almost time for your next dose. Do not take two doses at one time. What happens if I overdose? Seek emergency medical attention or call the Poison Help line at . Overdose symptoms may include nausea, vomiting, stomach pain, diarrhea, and blood in your urine. What should I avoid while taking cephalexin? Antibiotic medicines can cause diarrhea, which may be a sign of a new infection. If you have diarrhea that is watery or bloody, call your doctor before using anti-diarrhea medicine. What are the possible side effects of cephalexin? Get emergency medical help if you have signs of an allergic reaction (hives, difficult breathing, swelling in your face or throat) or a severe skin reaction (fever, sore throat, burning eyes, skin pain, red or purple skin rash with blistering and peeling). Call your doctor at once if you have: severe stomach pain, diarrhea that is watery or bloody (even if it occurs months after your last dose); unusual tiredness, feeling light-headed or short of breath; easy bruising, unusual bleeding, purple or red spots under your skin; a seizure; pale skin, cold hands and feet; yellowed skin, dark colored urine; fever, weakness; or pain in your side or lower back, painful urination. Common side effects may include: diarrhea; nausea, vomiting; indigestion, stomach pain; or vaginal itching or discharge. This is not a complete list of side effects and others may occur. Call your doctor for medical advice about side effects. You may report side effects to FDA at 3-550-THF-1088. What other drugs will affect cephalexin? Tell your doctor about all your other medicines, especially: metformin; or probenecid. This list is not complete. Other drugs may affect cephalexin, including prescription and bhff-wjr-afvwmco medicines, vitamins, and herbal products. Not all possible drug interactions are listed here. Where can I get more information? Your pharmacist can provide more information about cephalexin. Remember, keep this and all other medicines out of the reach of children, never share your medicines with others, and use this medication only for the indication prescribed. Every effort has been made to ensure that the information provided by [employer] ('[employer]') is accurate, up-to-date, and complete, but no guarantee is made to that effect. Drug information contained herein may be time sensitive. [employer] information has been compiled for use by healthcare practitioners and consumers in the [place] and therefore [employer] does not warrant that uses outside of the [place] are appropriate, unless specifically indicated otherwise. [employer] drug information does not endorse drugs, diagnose patients or recommend therapy. [employer] drug information is an informational resource designed to assist licensed healthcare practitioners in caring for their patients and/or to serve consumers viewing this service as a supplement to, and not a substitute for, the expertise, skill, knowledge and judgment of healthcare practitioners. The absence of a warning for a given drug or drug combination in no way should be construed to indicate that the drug or drug combination is safe, effective or appropriate for any given patient. [employer] does not assume any responsibility for any aspect of healthcare administered with the aid of information [employer] provides. The information contained herein is not intended to cover all possible uses, directions, precautions, warnings, drug interactions, allergic reactions, or adverse effects. If you have questions about the drugs you are taking, check with your doctor, nurse or pharmacist. Copyright 0322-5000 [employer]. Version: 12.. Revision Date: 09/29/2022. Education Materials Result type: CT Abd/Pelvis w/ IV Contrast Only Result date: January 23, 2023 11:34 EST Result status: Auth (Verified) Result title: CT ABD/PELVIS W/ IV CONTRAST ONLY Performed by: ORLIN TRUJILLO MD on January 23, 2023 11:08 EST Cosigned by: ORLIN TRUJILLO MD Verified by: ORLIN TRUJILLO MD on January 23, 2023 11:34 EST Encounter info: [id number], JOHNY AHNNAH, Emergency, 01/23/2023 - Contributor system: [email or web address] * Final Report * [id number] ORIGINAL EXAMINATION: CT OF THE ABDOMEN AND PELVIS WITH CONTRAST TECHNIQUE: CT of the Abdomen and Pelvis with intravenous contrast was performed. Axial, sagittal and coronal reformatted images were reviewed. Low dose CT acquisition technique included one of the following options: 1. Automated exposure control, 2. Adjustment of the MA and/or KV according to patient size, or 3. Use of iterative reconstruction. COMPARISON: CT abdomen pelvis 12/24/2022 HISTORY: ORDERING SYSTEM PROVIDED HISTORY: Reason for Exam: Abdominal pain FINDINGS: Support devices: None Lower thorax: Clear lung bases. Coronary and aortic atherosclerotic calcification. Solid organs: Redemonstrated is a hypodense area within the medial segment right lobe of the liver measuring approximately 3 cm with considerations including cyst and hemangioma. The a patent parenchyma is overall heterogeneous. The spleen, pancreas, and adrenal glands are unremarkable. An accessory spleen is noted. Biliary system: No evidence of biliary ductal dilatation. Gallbladder appears normal. Genitourinary: The kidneys are normal in appearance bilaterally with no evidence of hydronephrosis. Bilateral renal parapelvic cysts are similar to the examination of reference. Punctate nonobstructing bilateral renal calculi are noted. The urinary bladder is unremarkable. Gastrointestinal: The stomach is unremarkable. The small bowel is nondistended. Scattered retained fecal matter is seen throughout the colon. No evidence of a bowel obstruction. Scattered colonic diverticula without diverticulitis. Appendix: Within normal limits without adjacent fat stranding. Peritoneum: No ascites, pneumoperitoneum, or abscess. Abdominal wall: No ventral wall hernia. Pelvic organs: Atrophic uterus. Lymph nodes: No adenopathy by size criteria. Vascular structures: Atherosclerotic calcifications of a nonaneurysmal abdominal aorta. Osseous and soft tissue structures: Bone windows demonstrate no suspicious osteolytic or osteoblastic lesions. No fracture identified. Mild spondylotic changes of the thoracic and lumbar spine. IMPRESSION: 1. Heterogeneous hepatic parenchyma similar to the prior examination containing a 3 cm hypodensity within the left medial [place] lobe. Further characterization with ultrasound is advised. 2. Colonic diverticulosis without diverticulitis. 3. Nonobstructing punctate bilateral renal calculi and parapelvic cysts. Interpreted by: Orlin Trujillo MD Preliminary Report By: Orlin Trujillo MD Electronically signed By Orlin Trujillo MD Dictated Date: 01/23/2023 11:55:20 AM Prelim Date: 01/23/2023 12:02:52 PM Sign Date: 01/23/2023 12:02:52 PM Ordering Provider: AUDRA PHILLIPS IMAGE This document has an image Document Released: 02/14/2006 Document Revised: 01/31/2013 Document Reviewed: 02/15/2014 [facility] Patient Information 2015 [employer]. This information is not intended to replace advice given to you by your health care provider. Make sure you discuss any questions you have with your health care provider. Arthralgia Arthralgia is the term for pain in or around the joint. It is a symptom, not a disease. This pain may involve one or more joints. In some cases, the pain moves from joint to joint. There are many causes for joint pain. These include: Injury Osteoarthritis (wearing out of the joint surface) Gout (inflammation of the joint due to crystals in the joint fluid) Infection inside the joint Bursitis (inflammation of the fluid-filled sacs around the joint) Autoimmune disorders such as rheumatoid arthritis or lupus Tendonitis (inflammation of chords that attach muscle to bone) Home care Rest the involved joint(s) until your symptoms improve. You may be prescribed pain medicine. If none is prescribed, you may use acetaminophen or ibuprofen to control pain and inflammation. Follow-up care Follow up with your healthcare provider or as advised. When to seek medical advice Contact your healthcare provider right away if any of the following occurs: Pain, swelling, or redness of joint increases Pain worsens or recurs after a period of improvement Pain moves to other joints You cannot bear weight on the affected joint You cannot move the affected joint Joint appears deformed New rash appears Fever of 100.4 F (38 C) or higher, or as directed by your healthcare provider [id number] [employer]. [address] [place] [address], [place] [address]. All rights reserved. This information is not intended as a substitute for professional medical care. Always follow your healthcare professional's instructions. Abdominal Pain Abdominal pain is pain in the stomach or belly area. Everyone has this pain from time to time. In many cases it goes away on its own. But abdominal pain can sometimes be due to a serious problem, such as appendicitis. So it s important to know when to get help. Causes of abdominal pain There are many possible causes of abdominal pain. Common causes in adults include: Constipation, diarrhea, or gas Stomach acid flowing back up into the esophagus (acid reflux or heartburn) Severe acid reflux, called GERD (gastroesophageal reflux disease) A sore in the lining of the stomach or small intestine (peptic ulcer) Inflammation of the gallbladder, liver, or pancreas Gallstones or kidney stones Appendicitis Intestinal blockage An internal organ pushing through a muscle or other tissue (hernia) Urinary tract infections In women, menstrual cramps, fibroids, ovarian cysts, pelvic inflammatory disease, or endometriosis Inflammation or infection of the intestines, including Crohn's disease and ulcerative colitis Irritable bowel syndrome Diagnosing the cause of abdominal pain Your healthcare provider will give you a physical exam help find the cause of your pain. If needed, you will have tests. Belly pain has many possible causes. So it can be hard to find the reason for your pain. Giving details about your pain can help. Tell your provider where and when you feel the pain, and what makes it better or worse. Also let your provider know if you have other symptoms such as: Fever Tiredness Upset stomach (nausea) Vomiting Changes in bathroom habits Blood in the stool or black, tarry stool Weight loss that you can't explain (involuntary weight loss?) Also report any family history of stomach or intestinal problems, or cancers. Tell your provider about all your alcohol use and drug use. Tell your provider about all medicines you use, including herbs, vitamins, and supplements. Treating abdominal pain Some causes of pain need emergency medical treatment right away. These include appendicitis or a bowel blockage. Other problems can be treated with rest, fluids, or medicines. Your healthcare provider can give you specific instructions for treatment or self-care based on what is causing your pain. If you have vomiting or diarrhea, sip water or other clear fluids. When you are ready to eat solid foods again, start with small amounts of qiza-vf-uvtaua, low-fat foods. These include apple sauce, toast, or crackers. When to get medical care Call 911 or go to the hospital right away if you: Can t pass stool and are vomiting Are vomiting blood or have bloody diarrhea or black, tarry diarrhea Have chest, neck, or shoulder pain Feel like you might pass out Have pain in your shoulder blades with nausea Have sudden, severe belly pain Have new, severe pain unlike any you have felt before Have a belly that is rigid, hard, and hurts to touch Call your healthcare provider if you have: Pain for more than 5 days Bloating for more than 2 days Diarrhea for more than 5 days A fever of 100.4 F (38 C) or higher, or as directed by your healthcare provider Pain that gets worse Weight loss for no reason Continued lack of appetite Blood in your stool How to prevent abdominal pain Here are some tips to help prevent abdominal pain: Eat smaller amounts of food at each meal. Don't eat greasy, fried, or other high-fat foods. Don't eat foods that give you gas. Exercise regularly. Drink plenty of fluids. To help prevent GERD symptoms: Quit smoking. Reduce alcohol and foods that increase stomach acid. Don't use aspirin or amwg-dvo-pnrrntj pain and fever medicines, if possible. This includes nonsteroidal anti-inflammatory drugs (NSAIDs). Lose excess weight. Finish eating at least 2 hours before you go to bed or lie down. Raise the head of your bed. [id number] [employer]. [address] [place] [address]. All rights reserved. This information is not intended as a substitute for professional medical care. Always follow your healthcare professional's instructions. Additional Information VACCINATE! IT SAVES LIVES! Members of the community who have not yet received the COVID-19 vaccine and would like to receive it can visit one of [facility] vaccine clinics. There are many vaccine clinic locations within the [facility]. For locations and available times, please visit [email or web address] It is important to note that some COVID mobile vaccine clinics are held outdoors and may be canceled in rainy or stormy conditions. To learn more about pediatric vaccinations (ages 5-11), we invite you to visit the [facility] webpage. [email or web address].[email or web address]/p [email or web address]-Ibdyf-Alqhdfdpnub-Freq savatq-Dxiny-Bsdsmunjg.html To learn more about the COVID-19 vaccine, we invite you to visit the CDC website for a list of frequently asked questions. https://www.cdc.gov/coronavirus/ 2019-ncov/vaccines/faq.html [facility] Patient Portal Access Instructions: Stay connected with your healthcare team and access your personal medical information anytime with the [facility] Patient Portal. If you would like a full copy of your medical records please contact the [facility] Medical Records Department Tuesday through Tuesday between 8a.m. and 4:30p.m. Please follow the directions below to access the portal: 1.Access the email account you provided upon registration to the [facility].2.Look for an invitation email from [facility].3.Open the email and access the invitation link: Accept Invitation to [facility]4.Fill in the required lee to create your account. Sign into [email or web address] with your username and password that you created in the above steps to stay up to date. You can then view a summary of results, a summary of your visits, and the ability to download your summaries to your computer or send the information securely to a physician. Remember that your healthcare information is confidential, so carefully consider who you will allow to register on the [facility] Patient Portal for access to your information. You can also access the [facility] Patient Portal on the [employer]er. Simply click on Health Records under Health Data and then click on the [employer] logo. HOW TO SAFELY DISPOSE OF PRESCRIPTION MEDICATIONS Please use one of the following methods to safely dispose of your unused medications. 1.Use a drug disposal kit: the drug disposal pouch allows you to safely discard your old and unused drugs. Ask your nurse to give you one when you are discharged.2.Visit a local take-back location: Many local pharmacies and police departments have programs that collect old and unwanted prescription drugs. Call your local pharmacy or go to http://bit.ly/2H0Df4z to find one close to you.3.Make use of household items: Use cat litter or old coffee grounds to dispose medications if other options are not available. Mix your drugs with these household products, seal them in an airtight container and throw it into the garbage. Call [facility]: [phone] to be sure your drugs can be disposed of in this way. Some medicines may require a different approach.4.Never flush your medications down the toilet. IF YOU HAVE BEEN PRESCRIBED AN OPIOIDS FOR PAIN If you have been prescribed an opioid (such as hydrocodone, oxycodone or morphine), it is critical to understand the possible side effects and risks of opioid pain medications. Even when taken as directed, opioids can have several side effects including: Tolerance, meaning you might need to take more of a medication for the same pain relief. Nausea, vomiting and/or constipation. Sleepiness, dizziness, dry mouth, confusion, depression or itching. Physical dependence, meaning you have withdrawal symptoms when a medication is stopped ? this can develop within a few days. KNOW YOUR RESPONSIBILITIES It is important to know exactly how much and how often to take the opioid pain medications you are prescribed. Never take opioids in higher amounts or more often than prescribed. Do not combine opioids with alcohol or other drugs that cause drowsiness, such as benzodiazepines, also known as benzos, including diazepam and alprazolam, muscle relaxants or sleep aids. Never sell or share prescription opioids. This is illegal. Store opioids in a secure place and out of reach of others (including children, family, friends and visitors). The last page(s) of this document has been signed and retained as a CHART COPY Signatures Patient Education Materials YENIFER LOFTON (CUSTOM) Arthralgia Abdominal Pain Medication Leaflets cephalexin My discharge plan and instructions have been reviewed and explained to me and I,KAMALA GRAY understand my current condition and have read and understand these discharge instructions. I have received a written copy of the plan/instructions. If I have questions, I am aware that I should contact my doctor. 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 The previously seen nondisplaced fracture of the distal fibula is not conspicuous. Mild plantar calcaneal and dorsal tarsal degenerative enthesopathy changes are present. Mild degenerative changes of the IP joints noted. Vascular calcification is noted. There is soft tissue swelling of the dorsal midfoot and plantar os calcis.. There is no radiopaque foreign body. IMPRESSION: No acute fracture or dislocation. Degenerative changes as described. Soft tissue swelling. Interpreted by: Orlin Trujillo MD Preliminary Report By: Orlin Trujillo MD Electronically signed By Orlin Trujillo MD Dictated Date: 01/23/2023 12:02:56 PM Prelim Date: 01/23/2023 12:06:18 PM Sign Date: 01/23/2023 12:06:18 PM Ordering Provider: [facility] 01-23-2023 Note ORIGINAL EXAMINATION: CT OF THE ABDOMEN AND PELVIS WITH CONTRAST TECHNIQUE: CT of the Abdomen and Pelvis with intravenous contrast was performed. Axial, sagittal and coronal reformatted images were reviewed. Low dose CT acquisition technique included one of the following options: 1. Automated exposure control, 2. Adjustment of the MA and/or KV according to patient size, or 3. Use of iterative reconstruction. COMPARISON: CT abdomen pelvis 12/24/2022 HISTORY: ORDERING SYSTEM PROVIDED HISTORY: Reason for Exam: Abdominal pain FINDINGS: Support devices: None Lower thorax: Clear lung bases. Coronary and aortic atherosclerotic calcification. Solid organs: Redemonstrated is a hypodense area within the medial segment right lobe of the liver measuring approximately 3 cm with considerations including cyst and hemangioma. The a patent parenchyma is overall heterogeneous. The spleen, pancreas, and adrenal glands are unremarkable. An accessory spleen is noted. Biliary system: No evidence of biliary ductal dilatation. Gallbladder appears normal. Genitourinary: The kidneys are normal in appearance bilaterally with no evidence of hydronephrosis. Bilateral renal parapelvic cysts are similar to the examination of reference. Punctate nonobstructing bilateral renal calculi are noted. The urinary bladder is unremarkable. Gastrointestinal: The stomach is unremarkable. The small bowel is nondistended. Scattered retained fecal matter is seen throughout the colon. No evidence of a bowel obstruction. Scattered colonic diverticula without diverticulitis. Appendix: Within normal limits without adjacent fat stranding. Peritoneum: No ascites, pneumoperitoneum, or abscess. Abdominal wall: No ventral wall hernia. Pelvic organs: Atrophic uterus. Lymph nodes: No adenopathy by size criteria. Vascular structures: Atherosclerotic calcifications of a nonaneurysmal abdominal aorta. Osseous and soft tissue structures: Bone windows demonstrate no suspicious osteolytic or osteoblastic lesions. No fracture identified. Mild spondylotic changes of the thoracic and lumbar spine. IMPRESSION: 1. Heterogeneous hepatic parenchyma similar to the prior examination containing a 3 cm hypodensity within the left medial [place] lobe. Further characterization with ultrasound is advised. 2. Colonic diverticulosis without diverticulitis. 3. Nonobstructing punctate bilateral renal calculi and parapelvic cysts. Interpreted by: Orlin Trujillo MD Preliminary Report By: Orlin Trujillo MD Electronically signed By Orlin Trujillo MD Dictated Date: 01/23/2023 11:55:20 AM Prelim Date: 01/23/2023 12:02:52 PM Sign Date: 01/23/2023 12:02:52 PM Ordering Provider: [facility] 01-18-2023 Miscellaneous Notes Addended by: SATNAM RODRIGUEZ on: 01/18/2023 10:48 AM Modules accepted: Orders documented in this encounter [facility] 01-18-2023 Note HNO ID: [id number] Author: Satnam Rodriguez APRN.CNP Service: ? Author Type: Nurse Practitioner Type: Progress Notes Filed: 01/18/2023 8:15 AM Note Text: Subjective HPI HPI Kamala L Isaac is a 52 year old female who presents today for CC of bilat leg cramps. This started last night, but has them often. Has tried otc medication without relief. Symptoms are worsened by nothing. Denies injury, new medication, n/v/d, abdominal pain, numbness tingling of lower extremity. Patient is is diabetic. Patient hypothyroid, last number here was 129, has had no changes to synthroid since last lab draw. Has appointment tomorrow with pcp. .Patient presents with: Leg Cramps: x last night PAST MEDICAL HISTORY Diagnosis Date Asthma with COPD Celiac disease CKD (chronic kidney disease) Diabetes mellitus type 2 (HCC) Gout Hyperlipidemia Hypertension Hypothyroidism Microcytic anemia Obesity, Class III, BMI 40-49.9 (morbid obesity) (HCC) Renal calculi No past surgical history on file. ALLERGIES Hydrochlorothiazide, Naproxen, and Asa [Salicylates] MEDICATIONS atogepant (QULIPTA) 30 mg tablet Take by mouth. budesonide-formoterol (SYMBICORT) 160-4.5 mcg/actuation inhaler Inhale 2 Puffs as instructed. fremanezumab-vfrm (AJOVY AUTOINJECTOR) 225 mg/1.5 mL auto-injector Inject 225 mg subcutaneously once every month. Do not shake. nystatin (MYCOSTATIN) powder Apply 1 application to affected area three times daily. ondansetron orally disintegrating (ZOFRAN ODT) 4 mg disintegrating tablet Take 1 tablet by mouth every 6 hours as needed for nausea/vomiting. megestrol (MEGACE) 40 mg tablet Take 40 mg by mouth once daily. TRELEGY ELLIPTA 100-62.5-25 mcg INHALE 1 PUFF DAILY with good oral care levothyroxine (SYNTHROID) 300 mcg tablet Take by mouth. Not taking acetaminophen(TYLENOL 325 MG TAB) benzonatate (TESSALON PERLES) 100 mg capsule Take 2 capsules by mouth three times daily as needed. (Patient not taking: Reported on 01/17/2023) guaiFENesin (MUCINEX FAST-MAX CHEST-CONGEST) 100 mg/5 mL syrup Take 20 mL by mouth every 4 hours as needed. (Patient not taking: Reported on 07/28/2022) No family history on file. Social History Tobacco Use Smoking status: Never Smokeless tobacco: Never Substance Use Topics Alcohol use: No Drug use: Never Review of Systems Constitutional: Negative for chills, fever and weight loss. Respiratory: Negative for cough, shortness of breath and wheezing. Cardiovascular: Negative for chest pain and palpitations. Gastrointestinal: Negative for abdominal pain, blood in stool, constipation, diarrhea, heartburn, melena, nausea and vomiting. Genitourinary: Negative for dysuria, flank pain, frequency, hematuria and urgency. Musculoskeletal: Negative for myalgias. Objective Blood pressure 132/80, pulse 94, temperature 36 ?C (96.8 ?F), resp. rate 16, weight 130.2 kg (287 lb), SpO2 96 %. Physical Exam Constitutional: General: She is not in acute distress. Appearance: Normal appearance. She is not toxic-appearing. Cardiovascular: Rate and Rhythm: Normal rate and regular rhythm. Pulses: Dorsalis pedis pulses are 1+ on the right side and 1+ on the left side. Posterior tibial pulses are 1+ on the right side and 1+ on the left side. Heart sounds: Normal heart sounds. Comments: Distal sensation intact bilat Pulmonary: Effort: Pulmonary effort is normal. Breath sounds: Normal breath sounds. Abdominal: General: Bowel sounds are normal. Palpations: Abdomen is soft. Tenderness: There is no abdominal tenderness. Skin: General: Skin is warm and dry. Neurological: Deep Tendon Reflexes: Reflex Scores: Patellar reflexes are 1+ on the right side and 1+ on the left side. ASSESSMENT/PLAN: 1. Leg cramps - ICD9: 729.82, ICD10: R25.2 Check labs Will order magnesium if labs unchanged. Keep f/u with pcp tomorrow Urgent f/u for worsening s/s. - BASIC METABOLIC PNL Satnam Rodriguez APRN.CNP [facility] 01-18-2023 Instructions Satnam Rodriguez APRN.CNP - 01/18/2023 8:00 AM EST ASSESSMENT/PLAN: 1. Leg cramps - ICD9: 729.82, ICD10: R25.2 If labs ok I will order magnesium Follow up with primary care provider Urgent follow up for worsening symptoms. - BASIC METABOLIC PNL documented in this encounter [facility] 01-18-2023 History of Present illness Narrative Subjective HPI HPI Kamala Gray is a 52 year old female who presents today for CC of bilat leg cramps. This started last night, but has them often. Has tried otc medication without relief. Symptoms are worsened by nothing. Denies injury, new medication, n/v/d, abdominal pain, numbness tingling of lower extremity. Patient is is diabetic. Patient hypothyroid, last number here was 129, has had no changes to synthroid since last lab draw. Has appointment tomorrow with pcp. .Patient presents with: Leg Cramps: x last night PAST MEDICAL HISTORY Diagnosis Date Asthma with COPD Celiac disease CKD (chronic kidney disease) Diabetes mellitus type 2 (HCC) Gout Hyperlipidemia Hypertension Hypothyroidism Microcytic anemia Obesity, Class III, BMI 40-49.9 (morbid obesity) (HCC) Renal calculi No past surgical history on file. ALLERGIES Hydrochlorothiazide, Naproxen, and Asa [Salicylates] MEDICATIONS atogepant (QULIPTA) 30 mg tablet Take by mouth. budesonide-formoterol (SYMBICORT) 160-4.5 mcg/actuation inhaler Inhale 2 Puffs as instructed. fremanezumab-vfrm (AJOVY AUTOINJECTOR) 225 mg/1.5 mL auto-injector Inject 225 mg subcutaneously once every month. Do not shake. nystatin (MYCOSTATIN) powder Apply 1 application to affected area three times daily. ondansetron orally disintegrating (ZOFRAN ODT) 4 mg disintegrating tablet Take 1 tablet by mouth every 6 hours as needed for nausea/vomiting. megestrol (MEGACE) 40 mg tablet Take 40 mg by mouth once daily. TRELEGY ELLIPTA 100-62.5-25 mcg INHALE 1 PUFF DAILY with good oral care levothyroxine (SYNTHROID) 300 mcg tablet Take by mouth. Not taking acetaminophen(TYLENOL 325 MG TAB) benzonatate (TESSALON PERLES) 100 mg capsule Take 2 capsules by mouth three times daily as needed. (Patient not taking: Reported on 01/17/2023) guaiFENesin (MUCINEX FAST-MAX CHEST-CONGEST) 100 mg/5 mL syrup Take 20 mL by mouth every 4 hours as needed. (Patient not taking: Reported on 07/28/2022) No family history on file. Social History Tobacco Use Smoking status: Never Smokeless tobacco: Never Substance Use Topics Alcohol use: No Drug use: Never Review of Systems Constitutional: Negative for chills, fever and weight loss. Respiratory: Negative for cough, shortness of breath and wheezing. Cardiovascular: Negative for chest pain and palpitations. Gastrointestinal: Negative for abdominal pain, blood in stool, constipation, diarrhea, heartburn, melena, nausea and vomiting. Genitourinary: Negative for dysuria, flank pain, frequency, hematuria and urgency. Musculoskeletal: Negative for myalgias. Objective Blood pressure 132/80, pulse 94, temperature 36 C (96.8 F), resp. rate 16, weight 130.2 kg (287 lb), SpO2 96 %. Physical Exam Constitutional: General: She is not in acute distress. Appearance: Normal appearance. She is not toxic-appearing. Cardiovascular: Rate and Rhythm: Normal rate and regular rhythm. Pulses: Dorsalis pedis pulses are 1+ on the right side and 1+ on the left side. Posterior tibial pulses are 1+ on the right side and 1+ on the left side. Heart sounds: Normal heart sounds. Comments: Distal sensation intact bilat Pulmonary: Effort: Pulmonary effort is normal. Breath sounds: Normal breath sounds. Abdominal: General: Bowel sounds are normal. Palpations: Abdomen is soft. Tenderness: There is no abdominal tenderness. Skin: General: Skin is warm and dry. Neurological: Deep Tendon Reflexes: Reflex Scores: Patellar reflexes are 1+ on the right side and 1+ on the left side. ASSESSMENT/PLAN: 1. Leg cramps - ICD9: 729.82, ICD10: R25.2 Check labs Will order magnesium if labs unchanged. Keep f/u with pcp tomorrow Urgent f/u for worsening s/s. - BASIC METABOLIC PNL Satnam Rodriguez APRN.LOGGING SHOVEL OPERATOR documented in this encounter [facility] 01-17-2023 Note HNO ID: [id number] Author: Whitley Hsieh APRN.LOGGING SHOVEL OPERATOR Service: ? Author Type: Nurse Practitioner Type: Progress Notes Filed: 01/17/2023 10:21 AM Note Text: Subjective Headache Pertinent negatives include no fever. Kamala Gray is a 52 year old female who presents with a headache for the past 8 hours. She took tylenol. She denies fever, chills. She denies any associated URI symptoms. She has not had any visual disturbances. Rates pain 9/10, states it is in her forehead. Review of Systems Constitutional: Negative for chills and fever. HENT: Negative for congestion, ear pain and sore throat. Eyes: Negative for blurred vision, double vision, photophobia and pain. Respiratory: Negative for cough. Neurological: Positive for headaches. Negative for dizziness, sensory change, speech change, focal weakness, seizures, loss of consciousness and weakness. BP 142/88 Pulse 82 Temp 36.1 ?C (96.9 ?F) Resp 18 Wt 129.3 kg (285 lb) LMP (LMP Unknown) SpO2 96% PAST MEDICAL HISTORY Diagnosis Date Asthma with COPD Celiac disease CKD (chronic kidney disease) Diabetes mellitus type 2 (HCC) Gout Hyperlipidemia Hypertension Hypothyroidism Microcytic anemia Obesity, Class III, BMI 40-49.9 (morbid obesity) (HCC) Renal calculi No past surgical history on file. ALLERGIES Hydrochlorothiazide, Naproxen, and Asa [Salicylates] MEDICATIONS atogepant (QULIPTA) 30 mg tabletTake by mouth.Disp: Rfl: fremanezumab-vfrm (AJOVY AUTOINJECTOR) 225 mg/1.5 mL auto-injectorInject 225 mg subcutaneously once every month. Do not shake.Disp: Rfl: nystatin (MYCOSTATIN) powderApply 1 application to affected area three times daily.Disp: 60 gRfl: 0 ondansetron orally disintegrating (ZOFRAN ODT) 4 mg disintegrating tabletTake 1 tablet by mouth every 6 hours as needed for nausea/vomiting.Disp: 12 tabletRfl: 0 TRELEGY ELLIPTA 100-62.5-25 mcgINHALE 1 PUFF DAILY with good oral careDisp: Rfl: levothyroxine (SYNTHROID) 300 mcg tabletTake by mouth. Not takingDisp: 120 tabletRfl: 11 acetaminophen(TYLENOL 325 MG TAB)Disp: Rfl: 0 budesonide-formoterol (SYMBICORT) 160-4.5 mcg/actuation inhalerInhale 2 Puffs as instructed.Disp: Rfl: benzonatate (TESSALON PERLES) 100 mg capsuleTake 2 capsules by mouth three times daily as needed.Disp: 30 capsuleRfl: 0 (Patient not taking: Reported on 01/17/2023) guaiFENesin (MUCINEX FAST-MAX CHEST-CONGEST) 100 mg/5 mL syrupTake 20 mL by mouth every 4 hours as needed.Disp: 120 mLRfl: 0 (Patient not taking: Reported on 07/28/2022) megestrol (MEGACE) 40 mg tabletTake 40 mg by mouth once daily.Disp: Rfl: (Patient not taking: Reported on 01/17/2023) No family history on file. Social History Tobacco Use Smoking status: Never Smokeless tobacco: Never Substance Use Topics Alcohol use: No Drug use: Never ' Objective Physical Exam Vitals and nursing note reviewed. Constitutional: Appearance: Normal appearance. Eyes: Extraocular Movements: Right eye: Normal extraocular motion and no nystagmus. Left eye: Normal extraocular motion and no nystagmus. Pupils: Pupils are equal, round, and reactive to light. Cardiovascular: Rate and Rhythm: Normal rate and regular rhythm. Heart sounds: Normal heart sounds. Pulmonary: Effort: Pulmonary effort is normal. No respiratory distress. Breath sounds: Normal breath sounds. No wheezing or rales. Skin: General: Skin is warm and dry. Findings: No erythema or rash. Neurological: Mental Status: She is alert and oriented to person, place, and time. Motor: Motor function is intact. Coordination: Coordination is intact. Gait: Gait is intact. ASSESSMENT/PLAN: 1. Headache, unspecified headache type - ICD9: 784.0, ICD10: R51.9 - KETOROLAC 60 MG/2 ML INTRAMUSCULAR SOLUTION- given in office. - Follow-up with your PCP in 3-5 days if symptoms have not improved or sooner if symptoms worsen - Discussed red flags and need for immediate medical evaluation if any occur. - Discussed supportive care treatment with fluids, rest and analgesia. - Discussed expected course of illness Whitley Hsieh APRN.CNP [facility] 01-17-2023 Whitley Willis APRN.CNP - 01/17/2023 10:20 AM EST ASSESSMENT/PLAN: 1. Headache, unspecified headache type - ICD9: 784.0, ICD10: R51.9 - KETOROLAC 60 MG/2 ML INTRAMUSCULAR SOLUTION- given in office. - Follow-up with your PCP in 3-5 days if symptoms have not improved or sooner if symptoms worsen - Discussed red flags and need for immediate medical evaluation if any occur. - Discussed supportive care treatment with fluids, rest and analgesia. - Discussed expected course of illness Whitley Hsieh APRN.CNP HEADACHE GENERAL INFORMATION: Almost everyone has a headache occasionally. Most headaches are caused by tension, eye strain, or emotional upset. Headaches can also occur with many medical illnesses. They may be a side effect of some medications. A headache that occurs without other symptoms and only lasts a few hours probably isn't a cause for concern. INSTRUCTIONS: 1. You may use [id number] pain medication such as acetaminophen, ibuprofen, or aspirin unless your doctor recommends otherwise. 2. Try some of the following measures to relieve your headache: Stretch and massage the muscles in your shoulders, neck, jaw, and scalp. Take a hot bath. Rest in a quiet, darkened room. Place a warm or cold wet cloth (whichever feels better to you) over the aching area. 3. Don't skip meals or delay meals for very long. Drink plenty of fluids. 4. Avoid alcoholic beverages and cigarette smoking. These often make a headache worse. 5. Get plenty of rest. A good night's sleep often is the best way to relieve a headache. CONTACT YOUR DOCTOR IF: 1. Your headache gets worse or lasts longer than 24 hours. 2. You develop a temperature over 100.5 F (38 C) 3. You need to take medicine to relieve headache pain more than 3 times a week. RETURN TO THE ED IF: 1. Your headache is different from any headache you ever had before, or is the worst headache of your life. 2. You feel confused or drowsy. 3. Your neck feels stiff. 4. You have a temperature of 102 F (39 C) or higher. 5. You have eye problems such as sensitivity to light or blurred or double vision. 6. You start to vomit. 7. You have difficulty walking, talking, or moving your arms or legs. documented in this encounter [facility] 01-17-2023 History of Present illness Narrative Subjective Headache Pertinent negatives include no fever. Kamala Gray is a 52 year old female who presents with a headache for the past 8 hours. She took tylenol. She denies fever, chills. She denies any associated URI symptoms. She has not had any visual disturbances. Rates pain 9/10, states it is in her forehead. Review of Systems Constitutional: Negative for chills and fever. HENT: Negative for congestion, ear pain and sore throat. Eyes: Negative for blurred vision, double vision, photophobia and pain. Respiratory: Negative for cough. Neurological: Positive for headaches. Negative for dizziness, sensory change, speech change, focal weakness, seizures, loss of consciousness and weakness. BP 142/88 Pulse 82 Temp 36.1 C (96.9 F) Resp 18 Wt 129.3 kg (285 lb) LMP (LMP Unknown) SpO2 96% PAST MEDICAL HISTORY Diagnosis Date Asthma with COPD Celiac disease CKD (chronic kidney disease) Diabetes mellitus type 2 (HCC) Gout Hyperlipidemia Hypertension Hypothyroidism Microcytic anemia Obesity, Class III, BMI 40-49.9 (morbid obesity) (HCC) Renal calculi No past surgical history on file. ALLERGIES Hydrochlorothiazide, Naproxen, and Asa [Salicylates] MEDICATIONS atogepant (QULIPTA) 30 mg tablet^Take by mouth.^Disp: ^Rfl: fremanezumab-vfrm (AJOVY AUTOINJECTOR) 225 mg/1.5 mL auto-injector^Inject 225 mg subcutaneously once every month. Do not shake.^Disp: ^Rfl: nystatin (MYCOSTATIN) powder^Apply 1 application to affected area three times daily.^Disp: 60 g^Rfl: 0 ondansetron orally disintegrating (ZOFRAN ODT) 4 mg disintegrating tablet^Take 1 tablet by mouth every 6 hours as needed for nausea/vomiting.^Disp: 12 tablet^Rfl: 0 TRELEGY ELLIPTA 100-62.5-25 mcg^INHALE 1 PUFF DAILY with good oral care^Disp: ^Rfl: levothyroxine (SYNTHROID) 300 mcg tablet^Take by mouth. Not taking^Disp: 120 tablet^Rfl: 11 acetaminophen(TYLENOL 325 MG TAB)^^Disp: ^Rfl: 0 budesonide-formoterol (SYMBICORT) 160-4.5 mcg/actuation inhaler^Inhale 2 Puffs as instructed.^Disp: ^Rfl: benzonatate (TESSALON PERLES) 100 mg capsule^Take 2 capsules by mouth three times daily as needed.^Disp: 30 capsule^Rfl: 0 (Patient not taking: Reported on 01/17/2023) guaiFENesin (MUCINEX FAST-MAX CHEST-CONGEST) 100 mg/5 mL syrup^Take 20 mL by mouth every 4 hours as needed.^Disp: 120 mL^Rfl: 0 (Patient not taking: Reported on 07/28/2022) megestrol (MEGACE) 40 mg tablet^Take 40 mg by mouth once daily.^Disp: ^Rfl: (Patient not taking: Reported on 01/17/2023) No family history on file. Social History Tobacco Use Smoking status: Never Smokeless tobacco: Never Substance Use Topics Alcohol use: No Drug use: Never ' Objective Physical Exam Vitals and nursing note reviewed. Constitutional: Appearance: Normal appearance. Eyes: Extraocular Movements: Right eye: Normal extraocular motion and no nystagmus. Left eye: Normal extraocular motion and no nystagmus. Pupils: Pupils are equal, round, and reactive to light. Cardiovascular: Rate and Rhythm: Normal rate and regular rhythm. Heart sounds: Normal heart sounds. Pulmonary: Effort: Pulmonary effort is normal. No respiratory distress. Breath sounds: Normal breath sounds. No wheezing or rales. Skin: General: Skin is warm and dry. Findings: No erythema or rash. Neurological: Mental Status: She is alert and oriented to person, place, and time. Motor: Motor function is intact. Coordination: Coordination is intact. Gait: Gait is intact. ASSESSMENT/PLAN: 1. Headache, unspecified headache type - ICD9: 784.0, ICD10: R51.9 - KETOROLAC 60 MG/2 ML INTRAMUSCULAR SOLUTION- given in office. - Follow-up with your PCP in 3-5 days if symptoms have not improved or sooner if symptoms worsen - Discussed red flags and need for immediate medical evaluation if any occur. - Discussed supportive care treatment with fluids, rest and analgesia. - Discussed expected course of illness Whitley Hsieh APRN.LOGGING SHOVEL OPERATOR documented in this encounter [facility] 01-10-2023 Hospital Discharge instructions Patient Education 01/10/2023 11:13:25 Anxiety Reaction Anxiety Reaction Anxiety is the feeling we all get when we think something bad might happen. It is a normal response to stress and usually causes only a mild reaction. When anxiety becomes more severe, it can interfere with daily life. In some cases, you may not even be aware of what it is you re anxious about. There may also be a genetic link or it may be a learned behavior in the home. Both psychological and physical triggers cause stress reaction. It's often a response to fear or emotional stress, real or imagined. This stress may come from home, family, work, or social relationships. During an anxiety reaction, you may feel: Helpless Nervous Depressed Irritable Your body may show signs of anxiety in many ways. You may experience: Dry mouth Shakiness Dizziness Weakness Trouble breathing Breathing fast (hyperventilating) Chest pressure Sweating Headache Nausea Diarrhea Tiredness Inability to sleep Sexual problems Home care Try to locate the sources of stress in your life. They may not be obvious. These may include: oDaily hassles of life (such as traffic jams, missed appointments, or car troubles) oMajor life changes, both good (new baby or job promotion) and bad (loss of job or loss of loved one) oOverload: feeling that you have too many responsibilities and can't take care of all of them at once oFeeling helpless or feeling that your problems are beyond what you re able to solve Notice how your body reacts to stress. Learn to listen to your body signals. This will help you take action before the stress becomes severe. When you can, do something about the source of your stress. (Avoid hassles, limit the amount of change that happens in your life at one time and take a break when you feel overloaded). Unfortunately, many stressful situations can't be avoided. It is necessary to learn how to better manage stress. There are many proven methods that will reduce your anxiety. These include simple things like exercise, good nutrition, and adequate rest. Also, there are certain techniques that are helpful: oRelaxation oBreathing exercises oVisualization oBiofeedback oMeditation For more information about this, consult your healthcare provider or go to a local bookstore and review the many books and tapes available on this subject. Follow-up care If you feel that your anxiety is not responding to self-help measures, contact your healthcare provider or make an appointment with a counselor. You may need short-term psychological counseling and temporary medicine to help you manage stress. Call 911 Call 911 if any of these happen: Trouble breathing Confusion Drowsiness or trouble wakening Fainting or loss of consciousness Rapid heart rate Seizure New chest pain that becomes more severe, lasts longer, or spreads into your shoulder, arm, neck, jaw, or back When to seek medical advice Call your healthcare provider right away if any of these happen: Your symptoms get worse Severe headache not relieved by rest and mild pain reliever [phone] [employer] [address] [place] [address]. All rights reserved. This information is not intended as a substitute for professional medical care. Always follow your healthcare professional's instructions. 01/10/2023 11:13:10 Chest Pain, Uncertain Cause Uncertain Causes of Chest Pain Chest pain can happen for a number of reasons. Sometimes the cause can't be determined. If your condition does not seem serious, and your pain does not appear to be coming from your heart, your healthcare provider may recommend watching it closely. Sometimes the signs of a serious problem take more time to appear. Many problems not related to your heart can cause chest pain. These include: Musculoskeletal. Costochondritis is an inflammation of the tissues around the ribs that can occur from trauma or overuse injuries, or a strain of the muscles of the chest wall Respiratory. Pneumonia, collapsed lung (pneumothorax), or inflammation of the lining of the chest and lungs (pleurisy) Gastrointestinal. Esophageal reflux, heartburn, ulcers, or gallbladder disease Anxiety and panic disorders Nerve compression and inflammation Rare miscellaneous problems such as aortic aneurysm (a swelling of the large artery coming out of the heart) or pulmonary embolism (a blood clot in the lungs) Home care After your visit, follow these recommendations: Rest today and avoid strenuous activity. Take any prescribed medicine as directed. Be aware of any recurrent chest pain and notice any changes Follow-up care Follow up with your healthcare provider if you do not start to feel better within 24 hours, or as advised. Call 911 Call 911 if any of these occur: A change in the type of pain: if it feels different, becomes more severe, lasts longer, or begins to spread into your shoulder, arm, neck, jaw or back Shortness of breath or increased pain with breathing Weakness, dizziness, or fainting Rapid heart beat Crushing sensation in your chest When to seek medical advice Call your healthcare provider right away if any of the following occur: Cough with dark colored sputum (phlegm) or blood Fever of 100.4 F (38 C) or higher, or as directed by your healthcare provider Swelling, pain or redness in one leg [phone] [employer] [address] [place] [address], [place] [address]. All rights reserved. This information is not intended as a substitute for professional medical care. Always follow your healthcare professional's instructions. Follow Up Care 01/10/2023 08:29:14 With:PHYSICIAN, NOT RECORDED Address:Unknown When:2-4 days With:Follow up with primary care provider Address:Unknown When:2-4 days With:Call HALIMA Mercedes Pt. Refferral [phone] Address:Unknown When:2-4 days With:Go to emergency room if symptoms worsen Address:Unknown When:2-4 days [facility] 01-10-2023 Note Discharge Instructions Thank you for allowing [facility] to assist you with your healthcare needs. The following is important discharge information regarding your hospital visit. Diagnosis from Today's Visit Anxiety attack Chest pain Chest pain What to Do Next Instructions from Your Care Team No qualifying data available. Post Acute Orders No qualifying data available. You Need to Schedule the Following Appointments Follow Up with PHYSICIAN, NOT RECORDED When Within 2-4 days Follow Up with Follow up with primary care provider When Within 2-4 days Follow Up with Call HALIMA Mercedes Pt. Refferral [phone] When Within 2-4 days Follow Up with Go to emergency room if symptoms worsen When Within 2-4 days Allergies Naprosyn (Nausea) aspirin (NAUSEA) Medications Please ask your primary doctor or pharmacist before taking any other medication not listed, including over the counter drugs, herbal medications, vitamins and or supplements as they may interact with your home medications. What How Much When Why Instructions Last Dose New LORazepam (Ativan 1 mg oral tablet) 1 tab(s) by mouth Two (2) times a day as needed for anxiety Anxiety attack Duration: 2 Days Printed Prescription Unchanged acetaminophen (Tylenol Extra Strength 500 mg oral tablet) 3 tab by mouth Every 6 hours as needed for as needed for pain Unchanged albuterol (Proventil HFA MDI (90 mcg/ inh) inhalation aerosol) 2 puff(s) by inhalation Every 4 hours as needed for as needed for wheezing Managed by pulmonology Unchanged amLODIPine (amLODIPine 10 mg oral tablet) 1 tab(s) by mouth Once a day Duration: 30 Days Unchanged apixaban (Eliquis Starter Pack for Treatment of DVT and PE 5 mg oral tablet) [10mg BID x 7days-then 5mg BID] by mouth Two (2) times a day Duration: 30 Days Unchanged ascorbic acid (Vitamin C 500 mg oral tablet) 1 tab(s) by mouth Once a day Iron deficiency anemia, unspecified Iron deficiency anemia, unspecified Duration: 90 Days Unchanged atogepant (Qulipta 60 mg oral tablet) 1 tab(s) by mouth Once a day Unchanged cholecalciferol (cholecalciferol 1250 mcg (50,000 intl units) oral capsule) 1 cap by mouth Every week Vitamin D deficiency Duration: 30 Days Unchanged citalopram (CeleXA 40 mg oral tablet) 1 tab(s) by mouth Once a day Anxiety and depression Duration: 30 Days Unchanged empagliflozin (Jardiance 25 mg oral tablet) 1 tab(s) by mouth Once a day (in the morning) DM type 2, goal HbA1c < 7.5% Duration: 30 Days Unchanged febuxostat (Uloric 40 mg oral tablet) 1 tab(s) by mouth Every day Gout Duration: 30 Days Unchanged ferrous sulfate (ferrous sulfate 325 mg (65 mg elemental iron) oral delayed release tablet) 1 tab(s) by mouth Once a day Iron deficiency anemia, unspecified Duration: 90 Days Unchanged fluticasone/ umeclidinium/ vilanterol (Trelegy Ellipta 100 mcg-62.5 mcg-25 mcg/ inh inhalation powder) 1 puff(s) by inhalation Once a day Asthma in adult Duration: 90 Days Managed by Pulmonology Unchanged gabapentin (gabapentin 100 mg oral capsule) TAKE 1 CAPSULE BY MOUTH THREE TIMES DAILY Unchanged galcanezumab (Emgality Prefilled Pen 120 mg/ mL subcutaneous solution) Inject 120 mg every month by subcutaneous route. 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 Unchanged nortriptyline (nortriptyline 50 mg oral capsule) 1 cap by mouth Daily at bedtime Unchanged ondansetron (Zofran ODT use ondansetron oral tablet, disintegrating ) 4 Milligram by mouth Every 8 hours Duration: 5 Days Unchanged rimegepant (Nurtec ODT 75 mg oral tablet, disintegrating) 1 tab(s) by mouth Every 24 hours as needed for as needed for migraine headache not to exceed 75 mg in 24 hours Unchanged tiZANidine (tiZANidine 4 mg oral capsule) 1 cap by mouth Two (2) times a day Unchanged traMADol (traMADol 50 mg oral tablet) 1 tab(s) by mouth Two (2) times a day Unchanged ubrogepant (Ubrelvy 100 mg oral tablet) 1 tab(s) by mouth Once as needed for as needed for migraine headache may repeat dose in 2 hours if needed. Max dose of 2 tabs in 24 hrs Unchanged valsartan (valsartan 320 mg oral tablet) 1 tab(s) by mouth Once a day Duration: 30 Days Please take this list to your next doctor s visit. Bring all medications you take, including over the counter medications, herbals and other supplements with you to your doctor s visit. Patients and families are reminded to discard old lists and to update any records with all medication providers or retail pharmacies. Medication Leaflets lorazepam (oral) (juan A ze willie) Ativan, Lorazepam Intensol, Loreev XR What is the most important information I should know about lorazepam? Lorazepam can slow or stop your breathing, especially if you have recently used an opioid medication or alcohol. MISUSE OF THIS MEDICINE CAN CAUSE ADDICTION, OVERDOSE, OR . Keep this medicine where others cannot get to it. You may have withdrawal symptoms if you stop using lorazepam suddenly. Ask your doctor before stopping the medicine. What is lorazepam? Lorazepam is used in adults and children at least 12 years old to treat anxiety disorders. Extended-release lorazepam is used in adults to treat anxiety disorders. Lorazepam may also be used for purposes not listed in this medication guide. What should I discuss with my healthcare provider before taking lorazepam? You should not use lorazepam if you have: narrow-angle glaucoma; or a history of allergic reaction to any benzodiazepine (lorazepam, alprazolam, diazepam, Valium, Xanax, Versed, Klonopin, and others). Tell your doctor if you have ever had: asthma, chronic obstructive pulmonary disease (COPD), sleep apnea, or other breathing disorder; drug or alcohol addiction; depression, mental illness or psychosis, mood changes, or suicidal thoughts or actions; seizures; an allergy to aspirin or yellow food dye; or kidney or liver disease. Tell your doctor if you are or plan to become . If you use lorazepam during , your baby could be born with life-threatening withdrawal symptoms, and may need medical treatment for several weeks. If you are , your name may be listed on a registry to track the effects of lorazepam on the baby. You should not breastfeed. If you do breastfeed, tell your doctor if you notice drowsiness, feeding problems, or slow weight gain in the nursing baby. How should I take lorazepam? Follow the directions on your prescription label and read all medication guides or instruction sheets. Never use lorazepam in larger amounts, or for longer than prescribed. Tell your doctor if you feel an increased urge to use more of this medicine. Never share this medicine with another person, especially someone with a history of drug addiction. MISUSE CAN CAUSE ADDICTION, OVERDOSE, OR . Keep the medicine where others cannot get to it. Selling or giving away this medicine is against the law. Measure the oral concentrate (liquid) with the supplied measuring device (not a kitchen spoon). Mix the liquid with water, juices, soda or soda-like beverages, or with semi-solid foods such as applesauce or puddings. Swallow this mixture right away. Swallow the extended-release capsule whole and do not crush, chew, break, or open it. If you cannot swallow a capsule whole, open it and mix the medicine with applesauce. Swallow the mixture right away without chewing. Do not stop using lorazepam without asking your doctor. You may have life-threatening withdrawal symptoms if you stop using the medicine suddenly after long-term use. Store tightly closed at room temperature, away from moisture and heat. Store the liquid form of lorazepam in the refrigerator. Throw away any liquid not used within 90 days. Keep your medicine in a place where no one can use it improperly. What happens if I miss a dose? Take the medicine as soon as you can, but skip the missed dose if it is almost time for your next dose. Do not take two doses at one time. What happens if I overdose? Seek emergency medical attention or call the Poison Help line at . An overdose of lorazepam can be fatal if you also drink alcohol or use other drugs that cause drowsiness or slow breathing. Overdose symptoms may include severe drowsiness, confusion, slurred speech, feeling restless, muscle weakness, loss of balance or coordination, feeling light-headed, slow heartbeats, weak or shallow breathing, or coma. What should I avoid while taking lorazepam? Do not drink alcohol. Dangerous side effects or could occur. Avoid driving or hazardous activity until you know how this medicine will affect you. Dizziness or drowsiness can cause falls, accidents, or severe injuries. What are the possible side effects of lorazepam? Get emergency medical help if you have signs of an allergic reaction: hives; difficulty breathing; swelling of your face, lips, tongue, or throat. Lorazepam can slow or stop your breathing, especially if you have recently used an opioid medication or alcohol. A person caring for you should seek emergency medical attention if you have slow breathing with long pauses, blue colored lips, or if you are hard to wake up. Call your doctor at once if you have: severe drowsiness; unusual changes in mood or behavior, being agitated or talkative; sudden restless feeling or excitement; seizures, depression, thinking problems, thoughts of suicide or hurting yourself; confusion, aggression, hallucinations; sleep problems (insomnia); vision changes; or dark urine, or jaundice (yellowing of the skin or eyes). Drowsiness or dizziness may last longer in older adults. Use caution to avoid falling or accidental injury. Common side effects may include: dizziness, sedation, drowsiness; weakness; or feeling unsteady. You will need frequent blood tests to check your blood counts and liver function. After you stop using lorazepam, seek medical help right away if you have symptoms such as: unusual muscle movements, being more active or talkative, sudden and severe changes in mood or behavior, confusion, hallucinations, seizures, suicidal thoughts or actions. Some withdrawal symptoms may last up to 12 months or longer after stopping this medicine suddenly. Tell your doctor if you have ongoing anxiety, depression, problems with memory or thinking, trouble sleeping, ringing in your ears, a burning or prickly feeling, or a crawling sensation under your skin. This is not a complete list of side effects and others may occur. Call your doctor for medical advice about side effects. You may report side effects to FDA at 0-903-TFE-9200. What other drugs will affect lorazepam? Taking lorazepam with other drugs that slow your breathing can cause dangerous side effects or . Ask your doctor before using opioid medication, a sleeping pill, a muscle relaxer, or medicine for anxiety or seizures. Tell your doctor about all your other medicines, especially: valproate, probenecid, aminophylline, or theophylline; medicine to treat mental illness; or medicine that contains an antihistamine (such as sleep medicine, cold or allergy medicine). This list is not complete and many other drugs may affect lorazepam. This includes prescription and [id number] medicines, vitamins, and herbal products. Not all possible drug interactions are listed here. Where can I get more information? Your doctor or pharmacist can provide more information about lorazepam. Remember, keep this and all other medicines out of the reach of children, never share your medicines with others, and use this medication only for the indication prescribed. Every effort has been made to ensure that the information provided by [employer]') is accurate, up-to-date, and complete, but no guarantee is made to that effect. Drug information contained herein may be time sensitive. [employer] information has been compiled for use by healthcare practitioners and consumers in the [place] and therefore [employer] does not warrant that uses outside of the [place] are appropriate, unless specifically indicated otherwise. [employer]'s drug information does not endorse drugs, diagnose patients or recommend therapy. [employer] drug information is an informational resource designed to assist licensed healthcare practitioners in caring for their patients and/or to serve consumers viewing this service as a supplement to, and not a substitute for, the expertise, skill, knowledge and judgment of healthcare practitioners. The absence of a warning for a given drug or drug combination in no way should be construed to indicate that the drug or drug combination is safe, effective or appropriate for any given patient. [employer] does not assume any responsibility for any aspect of healthcare administered with the aid of information [employer] provides. The information contained herein is not intended to cover all possible uses, directions, precautions, warnings, drug interactions, allergic reactions, or adverse effects. If you have questions about the drugs you are taking, check with your doctor, nurse or pharmacist. Copyright 4082-7543 [employer] Version: 10.04. Revision Date: 07/19/2022. Education Materials Anxiety Reaction Anxiety is the feeling we all get when we think something bad might happen. It is a normal response to stress and usually causes only a mild reaction. When anxiety becomes more severe, it can interfere with daily life. In some cases, you may not even be aware of what it is you re anxious about. There may also be a genetic link or it may be a learned behavior in the home. Both psychological and physical triggers cause stress reaction. It's often a response to fear or emotional stress, real or imagined. This stress may come from home, family, work, or social relationships. During an anxiety reaction, you may feel: Helpless Nervous Depressed Irritable Your body may show signs of anxiety in many ways. You may experience: Dry mouth Shakiness Dizziness Weakness Trouble breathing Breathing fast (hyperventilating) Chest pressure Sweating Headache Nausea Diarrhea Tiredness Inability to sleep Sexual problems Home care Try to locate the sources of stress in your life. They may not be obvious. These may include: oDaily hassles of life (such as traffic jams, missed appointments, or car troubles) oMajor life changes, both good (new baby or job promotion) and bad (loss of job or loss of loved one) oOverload: feeling that you have too many responsibilities and can't take care of all of them at once oFeeling helpless or feeling that your problems are beyond what you re able to solve Notice how your body reacts to stress. Learn to listen to your body signals. This will help you take action before the stress becomes severe. When you can, do something about the source of your stress. (Avoid hassles, limit the amount of change that happens in your life at one time and take a break when you feel overloaded). Unfortunately, many stressful situations can't be avoided. It is necessary to learn how to better manage stress. There are many proven methods that will reduce your anxiety. These include simple things like exercise, good nutrition, and adequate rest. Also, there are certain techniques that are helpful: oRelaxation oBreathing exercises oVisualization oBiofeedback oMeditation For more information about this, consult your healthcare provider or go to a local bookstore and review the many books and tapes available on this subject. Follow-up care If you feel that your anxiety is not responding to self-help measures, contact your healthcare provider or make an appointment with a counselor. You may need short-term psychological counseling and temporary medicine to help you manage stress. Call 911 Call 911 if any of these happen: Trouble breathing Confusion Drowsiness or trouble wakening Fainting or loss of consciousness Rapid heart rate Seizure New chest pain that becomes more severe, lasts longer, or spreads into your shoulder, arm, neck, jaw, or back When to seek medical advice Call your healthcare provider right away if any of these happen: Your symptoms get worse Severe headache not relieved by rest and mild pain reliever [id number] [employer] [address] [place] [address]. All rights reserved. This information is not intended as a substitute for professional medical care. Always follow your healthcare professional's instructions. Uncertain Causes of Chest Pain Chest pain can happen for a number of reasons. Sometimes the cause can't be determined. If your condition does not seem serious, and your pain does not appear to be coming from your heart, your healthcare provider may recommend watching it closely. Sometimes the signs of a serious problem take more time to appear. Many problems not related to your heart can cause chest pain. These include: Musculoskeletal. Costochondritis is an inflammation of the tissues around the ribs that can occur from trauma or overuse injuries, or a strain of the muscles of the chest wall Respiratory. Pneumonia, collapsed lung (pneumothorax), or inflammation of the lining of the chest and lungs (pleurisy) Gastrointestinal. Esophageal reflux, heartburn, ulcers, or gallbladder disease Anxiety and panic disorders Nerve compression and inflammation Rare miscellaneous problems such as aortic aneurysm (a swelling of the large artery coming out of the heart) or pulmonary embolism (a blood clot in the lungs) Home care After your visit, follow these recommendations: Rest today and avoid strenuous activity. Take any prescribed medicine as directed. Be aware of any recurrent chest pain and notice any changes Follow-up care Follow up with your healthcare provider if you do not start to feel better within 24 hours, or as advised. Call 911 Call 911 if any of these occur: A change in the type of pain: if it feels different, becomes more severe, lasts longer, or begins to spread into your shoulder, arm, neck, jaw or back Shortness of breath or increased pain with breathing Weakness, dizziness, or fainting Rapid heart beat Crushing sensation in your chest When to seek medical advice Call your healthcare provider right away if any of the following occur: Cough with dark colored sputum (phlegm) or blood Fever of 100.4 F (38 C) or higher, or as directed by your healthcare provider Swelling, pain or redness in one leg [id number] [employer]. [address] [place] [address]. All rights reserved. This information is not intended as a substitute for professional medical care. Always follow your healthcare professional's instructions. Additional Information VACCINATE! IT SAVES LIVES! Members of the community who have not yet received the COVID-19 vaccine and would like to receive it can visit one of [facility] vaccine clinics. There are many vaccine clinic locations within the [facility]. For locations and available times, please visit [email or web address] It is important to note that some COVID mobile vaccine clinics are held outdoors and may be canceled in rainy or stormy conditions. To learn more about pediatric vaccinations (ages 5-11), we invite you to visit the [facility] webpage. [email or web address] To learn more about the COVID-19 vaccine, we invite you to visit the CDC website for a list of frequently asked questions. https://www.cdc.gov/coronavirus/ 2019-ncov/vaccines/faq.html [facility] [employer] Patient Portal Access Instructions: Stay connected with your healthcare team and access your personal medical information anytime with the [facility] [employer] Patient Portal. If you would like a full copy of your medical records please contact the [facility] Medical Records Department Tuesday through Tuesday between 8a.m. and 4:30p.m. Please follow the directions below to access the portal: 1.Access the email account you provided upon registration to the [facility].2.Look for an invitation email from [facility].3.Open the email and access the invitation link: Accept Invitation to [facility] [employer].Fill in the required lee to create your account. Sign into [email or web address] with your username and password that you created in the above steps to stay up to date. You can then view a summary of results, a summary of your visits, and the ability to download your summaries to your computer or send the information securely to a physician. Remember that your healthcare information is confidential, so carefully consider who you will allow to register on the [employer] Patient Portal for access to your information. You can also access the [facility] [employer] Patient Portal on the [employer]. Simply click on Health Records under Health Data and then click on the [employer] logo. HOW TO SAFELY DISPOSE OF PRESCRIPTION MEDICATIONS Please use one of the following methods to safely dispose of your unused medications. 1.Use a drug disposal kit: the drug disposal pouch allows you to safely discard your old and unused drugs. Ask your nurse to give you one when you are discharged.2.Visit a local take-back location: Many local pharmacies and police departments have programs that collect old and unwanted prescription drugs. Call your local pharmacy or go to http://[employer].Bluechilli/8N9Tr0k to find one close to you.3.Make use of household items: Use cat litter or old coffee grounds to dispose medications if other options are not available. Mix your drugs with these household products, seal them in an airtight container and throw it into the garbage. Call [facility]: [phone] to be sure your drugs can be disposed of in this way. Some medicines may require a different approach.4.Never flush your medications down the toilet. IF YOU HAVE BEEN PRESCRIBED AN OPIOIDS FOR PAIN If you have been prescribed an opioid (such as hydrocodone, oxycodone or morphine), it is critical to understand the possible side effects and risks of opioid pain medications. Even when taken as directed, opioids can have several side effects including: Tolerance, meaning you might need to take more of a medication for the same pain relief. Nausea, vomiting and/or constipation. Sleepiness, dizziness, dry mouth, confusion, depression or itching. Physical dependence, meaning you have withdrawal symptoms when a medication is stopped ? this can develop within a few days. KNOW YOUR RESPONSIBILITIES It is important to know exactly how much and how often to take the opioid pain medications you are prescribed. Never take opioids in higher amounts or more often than prescribed. Do not combine opioids with alcohol or other drugs that cause drowsiness, such as benzodiazepines, also known as benzos, including diazepam and alprazolam, muscle relaxants or sleep aids. Never sell or share prescription opioids. This is illegal. Store opioids in a secure place and out of reach of others (including children, family, friends and visitors). The last page(s) of this document has been signed and retained as a CHART COPY Signatures Patient Education Materials Anxiety Reaction Chest Pain, Uncertain Cause Medication Leaflets lorazepam (oral) My discharge plan and instructions have been reviewed and explained to me and I,ISAAC KAMALA L understand my current condition and have read and understand these discharge instructions. I have received a written copy of the plan/instructions. If I have questions, I am aware that I should contact my doctor. 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 Lungs: No pulmonary edema, consolidation or large pleural effusion. The right diaphragm is chronically elevated. Pneumothorax: None Osseous: No acute osseous IMPRESSION: Stable chest examination demonstrating no acute pulmonary disease. Interpreted by: Orlin Trujillo MD Preliminary Report By: Orlin Trujillo MD Electronically signed By Orlin Trujillo MD Dictated Date: 01/10/2023 9:27:12 AM Prelim Date: 01/10/2023 9:28:16 AM Sign Date: 01/10/2023 9:28:16 AM Ordering Provider: SHEELA GARRIDO [facility] 01-10-2023 Note Sinus rhythm Borderline left axis deviation Low voltage, precordial leads Abnormal R-wave progression, late transition Abnormal T, consider ischemia, diffuse leads Prolonged QT interval Somewhat similar to EKG December 24, 2022. Electronic Signature: SHEELA GARRIDO MD 01/10/2023 09:38:48 [facility] 12-27-2022 Note . MICRO - Microbiology PROCEDURE: Urine Culture [*1] SOURCE: Urine BODY SITE: COLLECTED DATE/TIME: 12/24/2022 19:30 EDT RECEIVED DATE/TIME: 12/25/2022 16:55 EDT START DATE/TIME: 12/25/2022 16:56 EDT FREE TEXT SOURCE: FINAL REPORTS Final Report [] Verified Date/Time/Personnel: 12/27/2022 09:25 EDT 50,000 - 100,000 cfu/ml Pseudomonas aeruginosa PRELIMINARY REPORTS Preliminary Report [] Verified Date/Time/Personnel: 12/26/2022 11:02 EDT 50,000 - 100,000 cfu/ml Pseudomonas aeruginosa AWILDA to follow SUSCEPTIBILITY RESULTS Pseudomonas aeruginosa Antibiotic AWILDA Dilut AWILDA Inter Aztreonam <=4 Susceptible Cefepime 4 Susceptible Ceftazidime 4 Susceptible Imipenem 2 Susceptible Levofloxacin <=0.5 Susceptible Meropenem <=1 Susceptible Piperacillin/ <=8 Susceptible Tazobactam Tobramycin <=2 Susceptible Performing Locations *1: This test was performed at: [address], [facility] , [facility] ([place]) 12-24-2022 Note ORIGINAL EXAMINATION: CT OF THE ABDOMEN AND PELVIS WITH CONTRAST 12/24/2022 8:41 pm TECHNIQUE: CT of the abdomen and pelvis was performed with the administration of intravenous contrast. Multiplanar reformatted images are provided for review. Automated exposure control, iterative reconstruction, and/or weight based adjustment of the mA/kV was utilized to reduce the radiation dose to as low as reasonably achievable. COMPARISON: Renal ultrasound 11/29/2019, CTA chest 10/03/2022. HISTORY: ORDERING SYSTEM PROVIDED HISTORY: Reason for Exam: pt c/o abdominal pain, fatigue and right sided weakness over past week. pt was recently treated for UTI. Elev wbc/ast pain FINDINGS: Body habitus obscures detail. Degenerative changes of the spine. Included lung bases are unremarkable. Partially visualized aortic valve calcifications. Slightly heterogenous appearing liver. Hypodense right hepatic lobe lesion likely represents simple hepatic cyst versus an arteriovenous malformation (hepatic hemangioma). Normal gallbladder. The spleen, pancreas, and adrenal glands are unremarkable. Symmetric nephrograms without evidence of hydronephrosis or nephrolithiasis. There are multiple simple fluid attenuating lesions within the bilateral renal pelves, most consistent with simple parapelvic cysts. These are more prominent when compared to the 11/29/2019 study but appear similar to the 10/03/2022 study. Ureters are normal in course and caliber. Nonaneurysmal abdominal aorta. No abdominal lymphadenopathy, free fluid, or intraperitoneal free air identified. The large and small bowel are unremarkable. The pelvic organs are unremarkable. Small fat containing umbilical hernia. IMPRESSION: Slightly heterogenous appearing liver, which can be seen in hepatic steatosis. I have personally reviewed the images of this examination and agree with the resident's findings and interpretation. Interpreted by: Nicolás Pool Preliminary Report By: Bernardo Jeter Electronically signed By Nicolás Pool Dictated Date: 12/24/2022 8:43:39 PM Prelim Date: 12/24/2022 9:00:54 PM Sign Date: 12/24/2022 9:26:09 PM Ordering Provider: FABIAN [facility] 12-24-2022 Note ORIGINAL EXAMINATION: CTA OF THE CHEST 12/24/2022 8:41 pm TECHNIQUE: CTA of the chest was performed after the administration of intravenous contrast. Multiplanar reformatted images are provided for review. MIP images are provided for review. Automated exposure control, iterative reconstruction, and/or weight based adjustment of the mA/kV was utilized to reduce the radiation dose to as low as reasonably achievable. COMPARISON: CTA chest 10/03/2022. HISTORY: ORDERING SYSTEM PROVIDED HISTORY: Reason for Exam: chest pain; suspect PE FINDINGS: Body habitus obscures detail. Pulmonary Arteries: Pulmonary arteries are adequately opacified for evaluation. No evidence of intraluminal filling defect to suggest pulmonary embolism. Main pulmonary artery is normal in caliber. Mediastinum: No evidence of mediastinal lymphadenopathy. Coronary artery calcifications and/or stents. Aortic valve calcifications are noted. The heart and pericardium demonstrate no acute abnormality. There is no acute abnormality of the thoracic aorta. Lungs/pleura: No pleural effusion or pneumothorax. No focal consolidation. There is a new 4 mm nodule in the right upper lobe on series 4, image 60. Upper Abdomen: Same day CT abdomen pelvis dictated separately. Soft Tissues/Bones: No acute bone or soft tissue abnormality. IMPRESSION: No evidence of pulmonary embolism or acute pulmonary abnormality. New right upper lobe nodule with recommendations as below. Coronary artery calcifications and/or stents. I have personally reviewed the images of this examination and agree with the resident's findings and interpretation. RECOMMENDATIONS: 4 mm right solid pulmonary nodule within the upper lobe. Per Fleischner Society Guidelines, if patient is low risk for malignancy, no routine follow-up imaging is recommended. If patient is high risk for malignancy, a non-contrast Chest CT at 12 months is optional. If performed and the nodule is stable at 12 months, no further follow-up is recommended. These guidelines do not apply to immunocompromised patients and patients with cancer. Follow up in patients with significant comorbidities as clinically warranted. For lung cancer screening, adhere to Lung-RADS guidelines. Reference: Radiology. 2017; 284(1):228-43. Interpreted by: Nicolás Pool Preliminary Report By: Bernardo Jeter Electronically signed By Nicolás Pool Dictated Date: 12/24/2022 9:01:04 PM Prelim Date: 12/24/2022 9:05:16 PM Sign Date: 12/24/2022 9:27:46 PM Ordering Provider: FABIAN MOLINA [facility] 12-15-2022 Miscellaneous Notes Patient notified and verbalized understanding of instructions given.Inez Stoll LPN Please call patient and let her know that Macrobid twice a day for 5 days is being called in for urine culture results which are mildly contaminated. If symptoms do not improve after antibiotic. Please have patient call primary care provider documented in this encounter [facility] 12-15-2022 Miscellaneous Notes Patient identified by name and date of . Patient advised of lab results. She is currently taking Levothyroxine 175 mcg. She is advised to see her PCP for medication adjustment. [facility] does not manage chronic disease medications. Labs are printed for her and left at [facility] desk for pickup since her PCP is not in [facility] system. Urine culture is still pending; if it shows any bacterial growth an antibiotic will be sent to her pharmacy. Whitley Hsieh APRN.MARIA TERESA documented in this encounter [facility] 12-14-2022 Note HNO ID: [id number] Author: Whitley Hsieh APRN.CNP Service: ? Author Type: Nurse Practitioner Type: Progress Notes Filed: 12/14/2022 11:56 AM Note Text: This note was created using [employer]. Subjective Kamala Gray is a 52 year old female. Patient presents with three days of lower back pain, fatigue, weakness, nausea and vomiting. She denies any fever or urinary symptoms. Back pain is 9/10 and not relieved by advil. She denies any injury or precipitating event to her back pain. Denies abdominal pain. She reports being treated at an OSH ER for UTI and completing a course of antibiotics. She endorses feeling better for a couple of days and then her current symptoms began. The history is provided by the patient. Review of Systems Constitutional: Positive for fatigue. Negative for appetite change, chills, diaphoresis and fever. Respiratory: Negative for shortness of breath. Cardiovascular: Negative for chest pain. Gastrointestinal: Positive for nausea and vomiting. Negative for abdominal pain and diarrhea. Genitourinary: Negative for decreased urine volume, difficulty urinating, dysuria, flank pain, hematuria and urgency. Musculoskeletal: Positive for back pain. Neurological: Positive for weakness. Negative for headaches. All other systems reviewed and are negative. Objective BP 128/80 Pulse 78 Temp 36.5 ?C (97.7 ?F) Resp 16 Wt 130.2 kg (287 lb) LMP (LMP Unknown) SpO2 97% PAST MEDICAL HISTORY Diagnosis Date Asthma with COPD (HCC) Celiac disease CKD (chronic kidney disease) Diabetes mellitus type 2 (HCC) Gout Hyperlipidemia Hypertension Hypothyroidism Microcytic anemia Obesity, Class III, BMI 40-49.9 (morbid obesity) (HCC) Renal calculi No past surgical history on file. ALLERGIES Hydrochlorothiazide, Naproxen, and Asa [Salicylates] MEDICATIONS benzonatate (TESSALON PERLES) 100 mg capsule Take 2 capsules by mouth three times daily as needed. nystatin (MYCOSTATIN) powder Apply 1 application to affected area three times daily. ondansetron orally disintegrating (ZOFRAN ODT) 4 mg disintegrating tablet Take 1 tablet by mouth every 6 hours as needed for nausea/vomiting. megestrol (MEGACE) 40 mg tablet Take 40 mg by mouth once daily. TRELEGY ELLIPTA 100-62.5-25 mcg INHALE 1 PUFF DAILY with good oral care levothyroxine (SYNTHROID) 300 mcg tablet Take by mouth. Not taking acetaminophen(TYLENOL 325 MG TAB) guaiFENesin (MUCINEX FAST-MAX CHEST-CONGEST) 100 mg/5 mL syrup Take 20 mL by mouth every 4 hours as needed. (Patient not taking: Reported on 07/28/2022) No family history on file. Social History Tobacco Use Smoking status: Never Smokeless tobacco: Never Substance Use Topics Alcohol use: No Drug use: Never Physical Exam Vitals reviewed. Constitutional: General: She is not in acute distress. Appearance: Normal appearance. She is not ill-appearing, toxic-appearing or diaphoretic. Cardiovascular: Rate and Rhythm: Normal rate and regular rhythm. Pulmonary: Effort: Pulmonary effort is normal. No respiratory distress. Breath sounds: Normal breath sounds. Abdominal: General: Bowel sounds are normal. There is no distension. Palpations: Abdomen is soft. Tenderness: There is no abdominal tenderness. There is right CVA tenderness and left CVA tenderness. There is no guarding. Musculoskeletal: Lumbar back: Tenderness present. No bony tenderness. Back: Neurological: General: No focal deficit present. Mental Status: She is alert and oriented to person, place, and time. Mental status is at baseline. Psychiatric: Mood and Affect: Mood normal. Behavior: Behavior normal. Thought Content: Thought content normal. Judgment: Judgment normal. Office Visit on 12/14/2022 Component Date Value Ref Range Status GLUCOSE UA (POCT) 12/14/2022 Negative Negative mg/dL Final BILIRUBIN UA (POCT) 12/14/2022 Negative Negative Final KETONE UA (POCT) 12/14/2022 Negative Negative mg/dL Final SPECIFIC GRAVITY UA (POCT) 12/14/2022 1.015 1.005 - 1.030 Final HEMOGLOBIN/BLOOD UA (POCT) 12/14/2022 Negative Negative Final PH UA (POCT) 12/14/2022 6.0 4.5 - 8.0 Final PROTEIN UA (POCT) 12/14/2022 Negative Negative mg/dL Final UROBILINOGEN UA (POCT) 12/14/2022 0.2 Normal E.U./dL Final NITRITE UA (POCT) 12/14/2022 Negative Negative Final LEUKOCYTES UA (POCT) 12/14/2022 Trace (A) Negative Final COLOR UA (POCT) 12/14/2022 Yellow Final CLARITY UA (POCT) 12/14/2022 Clear Final Assessment and Plan ASSESSMENT/PLAN: 1. Acute midline low back pain without sciatica - ICD9: 724.2, ICD10: M54.50 (primary diagnosis) - UA negative today. Will send for culture. - Tylenol PRN - UA DIP, URINE (POC) - URINE CULTURE 2. Fatigue, unspecified type - ICD9: 780.79, ICD10: R53.83 - Increase fluid intake - TSH, CBC, CMP ordered today - Follow up as needed - TSH BLD - COMP METABOLIC PANEL - CBC + DIFF E John [employer]FFA[employer] SPECIALIST Student (more content not included)... [facility] 12-14-2022 Instructions Whitley Hsieh, MICAH.LOGGING SHOVEL OPERATOR - 12/14/2022 11:56 AM EDT ASSESSMENT/PLAN: 1. Acute midline low back pain without sciatica - ICD9: 724.2, ICD10: M54.50 (primary diagnosis) - UA negative today. Will send for culture. - Tylenol PRN - UA DIP, URINE (POC) - URINE CULTURE 2. Fatigue, unspecified type - ICD9: 780.79, ICD10: R53.83 - Increase fluid intake - TSH, CBC, CMP ordered today - Follow up as needed - TSH BLD - COMP METABOLIC PANEL - CBC + DIFF E John [employer] AFFA[employer] SPECIALIST Student TEACHING PROVIDER (Physician/PA/LACE MACHINE OPERATOR) NOTE OF PERSONAL INVOLVEMENT IN CARE: I have personally seen and examined the patient and performed the medical decision-making components. I have reviewed the Advanced Practice Registered Nurse (LACE MACHINE OPERATOR) Student's documentation and verified the findings in the note as written. Any additions or changes are noted in bold/italics. Signature: Whitley Hsieh Date: 12/14/2022 Time: 11:55 AM documented in this encounter [facility] 12-14-2022 History of Present illness Narrative Images from the original note were not included. This note was created using [employer]. Subjective Kamala Gray is a 52 year old female. Patient presents with three days of lower back pain, fatigue, weakness, nausea and vomiting. She denies any fever or urinary symptoms. Back pain is 9/10 and not relieved by advil. She denies any injury or precipitating event to her back pain. Denies abdominal pain. She reports being treated at an OSH ER for UTI and completing a course of antibiotics. She endorses feeling better for a couple of days and then her current symptoms began. The history is provided by the patient. Review of Systems Constitutional: Positive for fatigue. Negative for appetite change, chills, diaphoresis and fever. Respiratory: Negative for shortness of breath. Cardiovascular: Negative for chest pain. Gastrointestinal: Positive for nausea and vomiting. Negative for abdominal pain and diarrhea. Genitourinary: Negative for decreased urine volume, difficulty urinating, dysuria, flank pain, hematuria and urgency. Musculoskeletal: Positive for back pain. Neurological: Positive for weakness. Negative for headaches. All other systems reviewed and are negative. Objective BP 128/80 Pulse 78 Temp 36.5 C (97.7 F) Resp 16 Wt 130.2 kg (287 lb) LMP (LMP Unknown) SpO2 97% PAST MEDICAL HISTORY Diagnosis Date Asthma with COPD (HCC) Celiac disease CKD (chronic kidney disease) Diabetes mellitus type 2 (HCC) Gout Hyperlipidemia Hypertension Hypothyroidism Microcytic anemia Obesity, Class III, BMI 40-49.9 (morbid obesity) (HCC) Renal calculi No past surgical history on file. ALLERGIES Hydrochlorothiazide, Naproxen, and Asa [Salicylates] MEDICATIONS benzonatate (TESSALON PERLES) 100 mg capsule Take 2 capsules by mouth three times daily as needed. nystatin (MYCOSTATIN) powder Apply 1 application to affected area three times daily. ondansetron orally disintegrating (ZOFRAN ODT) 4 mg disintegrating tablet Take 1 tablet by mouth every 6 hours as needed for nausea/vomiting. megestrol (MEGACE) 40 mg tablet Take 40 mg by mouth once daily. TRELEGY ELLIPTA 100-62.5-25 mcg INHALE 1 PUFF DAILY with good oral care levothyroxine (SYNTHROID) 300 mcg tablet Take by mouth. Not taking acetaminophen(TYLENOL 325 MG TAB) guaiFENesin (MUCINEX FAST-MAX CHEST-CONGEST) 100 mg/5 mL syrup Take 20 mL by mouth every 4 hours as needed. (Patient not taking: Reported on 07/28/2022) No family history on file. Social History Tobacco Use Smoking status: Never Smokeless tobacco: Never Substance Use Topics Alcohol use: No Drug use: Never Physical Exam Vitals reviewed. Constitutional: General: She is not in acute distress. Appearance: Normal appearance. She is not ill-appearing, toxic-appearing or diaphoretic. Cardiovascular: Rate and Rhythm: Normal rate and regular rhythm. Pulmonary: Effort: Pulmonary effort is normal. No respiratory distress. Breath sounds: Normal breath sounds. Abdominal: General: Bowel sounds are normal. There is no distension. Palpations: Abdomen is soft. Tenderness: There is no abdominal tenderness. There is right CVA tenderness and left CVA tenderness. There is no guarding. Musculoskeletal: Lumbar back: Tenderness present. No bony tenderness. Back: Neurological: General: No focal deficit present. Mental Status: She is alert and oriented to person, place, and time. Mental status is at baseline. Psychiatric: Mood and Affect: Mood normal. Behavior: Behavior normal. Thought Content: Thought content normal. Judgment: Judgment normal. Office Visit on 12/14/2022 Component Date Value Ref Range Status GLUCOSE UA (POCT) 12/14/2022 Negative Negative mg/dL Final BILIRUBIN UA (POCT) 12/14/2022 Negative Negative Final KETONE UA (POCT) 12/14/2022 Negative Negative mg/dL Final SPECIFIC GRAVITY UA (POCT) 12/14/2022 1.015 1.005 - 1.030 Final HEMOGLOBIN/BLOOD UA (POCT) 12/14/2022 Negative Negative Final PH UA (POCT) 12/14/2022 6.0 4.5 - 8.0 Final PROTEIN UA (POCT) 12/14/2022 Negative Negative mg/dL Final UROBILINOGEN UA (POCT) 12/14/2022 0.2 Normal E.U./dL Final NITRITE UA (POCT) 12/14/2022 Negative Negative Final LEUKOCYTES UA (POCT) 12/14/2022 Trace (A) Negative Final COLOR UA (POCT) 12/14/2022 Yellow Final CLARITY UA (POCT) 12/14/2022 Clear Final Assessment and Plan ASSESSMENT/PLAN: 1. Acute midline low back pain without sciatica - ICD9: 724.2, ICD10: M54.50 (primary diagnosis) - UA negative today. Will send for culture. - Tylenol PRN - UA DIP, URINE (POC) - URINE CULTURE 2. Fatigue, unspecified type - ICD9: 780.79, ICD10: R53.83 - Increase fluid intake - TSH, CBC, CMP ordered today - Follow up as needed - TSH BLD - COMP METABOLIC PANEL - CBC + DIFF E John [employer] SPECIALIST Student TEACHING PROVIDER (Physician/PA/LACE MACHINE OPERATOR) NOTE OF PERSONAL INVOLVEMENT IN CARE: I have personally seen and examined the patient and performed the medical decision-making components. I have reviewed the Advanced Practice Registered Nurse (LACE MACHINE OPERATOR) Student's documentation and verified the findings in the note as written. Any additions or changes are noted in bold/italics. Signature: Whitley Hsieh Date: 12/14/2022 Time: 11:55 AM documented in this encounter [facility] 11-20-2022 Evaluation + Plan note Future Scheduled TestsIron Level 11/20/22Thyroid Stimulating Hormone 11/20/22Free T4 11/20/22A1C Hemoglobin 11/20/22Complete Blood Count 11/20/22Lipid Profile 11/20/22Albumin/Creatinine Ratio, Random Urine 11/20/22Microalbumin Level Urine 05/17/22Vitamin D Level 11/20/22Complete Metabolic Panel 11/20/22TIBC 11/20/22 [facility] 11-16-2022 Note HNO ID: [id number] Author: Dion Escobar PA-C Service: ? Author Type: Physician Director Drug Type: Progress Notes Filed: 11/16/2022 12:55 PM Note Text: This note was created using [employer]. Subjective Kamala Gray is a 52 year old female. HPI Patient presents with full complaints. She was in the [facility] emergency department November 11 and had a work-up for shortness of breath and cough. She states her chest x-ray was normal. They treated her for bronchitis. She was placed on doxycycline. She is still on this medicine. She is she still has a cough. No fever. No chest pain. No vomiting or diarrhea. She does have a history of COPD. They did test her for COVID and was negative at the ER as well. She also is complaining of a sore on the back of her neck. Her CPAP rubs on this area and she has an open wound. No [id number] medicines tried or bandages. Patient also complaining of a rash underneath of her breasts and pannus chronically. She states she was given nystatin powder from the hospital 1 time which seemed to help with that but she is out of it. Review of Systems Constitutional: Negative for fever. HENT: Positive for congestion. Negative for ear pain, sinus pressure, sinus pain and sore throat. Respiratory: Positive for cough. Negative for shortness of breath and wheezing. Cardiovascular: Negative. Gastrointestinal: Negative. Genitourinary: Negative. Musculoskeletal: Negative. Skin: Skin sore on neck Rash under breasts and pannus All other systems reviewed and are negative. PAST MEDICAL HISTORY Diagnosis Date Asthma with COPD (HCC) Celiac disease CKD (chronic kidney disease) Diabetes mellitus type 2 (HCC) Gout Hyperlipidemia Hypertension Hypothyroidism Microcytic anemia Obesity, Class III, BMI 40-49.9 (morbid obesity) (HCC) Renal calculi Current Outpatient Medications Medication Sig Dispense Refill ondansetron orally disintegrating (ZOFRAN ODT) 4 mg disintegrating tablet Take 1 tablet by mouth every 6 hours as needed for nausea/vomiting. 12 tablet 0 megestrol (MEGACE) 40 mg tablet Take 40 mg by mouth once daily. TRELEGY ELLIPTA 100-62.5-25 mcg INHALE 1 PUFF DAILY with good oral care levothyroxine (SYNTHROID) 300 mcg tablet Take by mouth. Not taking 120 tablet 11 acetaminophen(TYLENOL 325 MG TAB) 0 benzonatate (TESSALON PERLES) 100 mg capsule Take 2 capsules by mouth three times daily as needed. 30 capsule 0 nystatin (MYCOSTATIN) powder Apply 1 application to affected area three times daily. 60 g 0 mupirocin (BACTROBAN) 2 % ointment Apply to affected area three times daily for 7 days. 22 g 0 guaiFENesin (MUCINEX FAST-MAX CHEST-CONGEST) 100 mg/5 mL syrup Take 20 mL by mouth every 4 hours as needed. (Patient not taking: Reported on 07/28/2022) 120 mL 0 No current facility-administered medications for this visit. No past surgical history on file. No family history on file. Social History Tobacco Use Smoking status: Never Smokeless tobacco: Never Substance Use Topics Alcohol use: No Drug use: Never Objective BP 138/82 Pulse 102 Temp 36.5 ?C (97.7 ?F) Resp 18 Wt 126.1 kg (278 lb) LMP (LMP Unknown) SpO2 98% Physical Exam Vitals reviewed. Constitutional: Appearance: Normal appearance. HENT: Head: Normocephalic and atraumatic. Right Ear: Tympanic membrane, ear canal and external ear normal. Left Ear: Tympanic membrane, ear canal and external ear normal. Nose: Congestion present. Mouth/Throat: Mouth: Mucous membranes are moist. Pharynx: Oropharynx is clear. Neck: Comments: Patient has a open sore at the midline back of the neck with abrasion linear extending right and left from this likely from the strap on her BiPAP. No sign of abscess. No drainage. Cardiovascular: Rate and Rhythm: Normal rate and regular rhythm. Heart sounds: Normal heart sounds. Pulmonary: Effort: Pulmonary effort is normal. Breath sounds: Normal breath sounds. No wheezing, rhonchi or rales. Musculoskeletal: Cervical back: Neck supple. Lymphadenopathy: Cervical: No cervical adenopathy. Skin: Comments: Patient has erythematous rash underneath both breasts and pannus consistent with intertrigo. No signs of a cellulitis. Neurological: Mental Status: She is alert. Assessment and Plan ASSESSMENT/PLAN: 1. Intertrigo - ICD9: 695.89, ICD10: L30.4 (primary diagnosis) Given nystatin powder. She states this is worked for her in the past. Follow-up with PCP if not improving. 2. Skin sore - ICD9: 709.9, ICD10: L98.9 Given mupirocin ointment and discussed using a large bandage over the area so it does not rub on her CPAP strap. Follow-up with PCP if not improving. 3. Bronchitis - ICD9: 490, ICD10: J40 I did review her ER records from including negative chest x-ray at that point as well as labs. She is already on antibiotics right now. Lungs are clear. Discussed the course of bronchitis. Discus (more content not included)... [facility] 11-16-2022 History of Present illness Narrative Images from the original note were not included. This note was created using [employer]. Subjective Kamala Gray is a 52 year old female. HPI Patient presents with full complaints. She was in the [facility] emergency department November 11 and had a work-up for shortness of breath and cough. She states her chest x-ray was normal. They treated her for bronchitis. She was placed on doxycycline. She is still on this medicine. She is she still has a cough. No fever. No chest pain. No vomiting or diarrhea. She does have a history of COPD. They did test her for COVID and was negative at the ER as well. She also is complaining of a sore on the back of her neck. Her CPAP rubs on this area and she has an open wound. No [id number] medicines tried or bandages. Patient also complaining of a rash underneath of her breasts and pannus chronically. She states she was given nystatin powder from the hospital 1 time which seemed to help with that but she is out of it. Review of Systems Constitutional: Negative for fever. HENT: Positive for congestion. Negative for ear pain, sinus pressure, sinus pain and sore throat. Respiratory: Positive for cough. Negative for shortness of breath and wheezing. Cardiovascular: Negative. Gastrointestinal: Negative. Genitourinary: Negative. Musculoskeletal: Negative. Skin: Skin sore on neck Rash under breasts and pannus All other systems reviewed and are negative. PAST MEDICAL HISTORY Diagnosis Date Asthma with COPD (HCC) Celiac disease CKD (chronic kidney disease) Diabetes mellitus type 2 (HCC) Gout Hyperlipidemia Hypertension Hypothyroidism Microcytic anemia Obesity, Class III, BMI 40-49.9 (morbid obesity) (HCC) Renal calculi Current Outpatient Medications Medication Sig Dispense Refill ondansetron orally disintegrating (ZOFRAN ODT) 4 mg disintegrating tablet Take 1 tablet by mouth every 6 hours as needed for nausea/vomiting. 12 tablet 0 megestrol (MEGACE) 40 mg tablet Take 40 mg by mouth once daily. TRELEGY ELLIPTA 100-62.5-25 mcg INHALE 1 PUFF DAILY with good oral care levothyroxine (SYNTHROID) 300 mcg tablet Take by mouth. Not taking 120 tablet 11 acetaminophen(TYLENOL 325 MG TAB) 0 benzonatate (TESSALON PERLES) 100 mg capsule Take 2 capsules by mouth three times daily as needed. 30 capsule 0 nystatin (MYCOSTATIN) powder Apply 1 application to affected area three times daily. 60 g 0 mupirocin (BACTROBAN) 2 % ointment Apply to affected area three times daily for 7 days. 22 g 0 guaiFENesin (MUCINEX FAST-MAX CHEST-CONGEST) 100 mg/5 mL syrup Take 20 mL by mouth every 4 hours as needed. (Patient not taking: Reported on 07/28/2022) 120 mL 0 No current facility-administered medications for this visit. No past surgical history on file. No family history on file. Social History Tobacco Use Smoking status: Never Smokeless tobacco: Never Substance Use Topics Alcohol use: No Drug use: Never Objective BP 138/82 Pulse 102 Temp 36.5 C (97.7 F) Resp 18 Wt 126.1 kg (278 lb) LMP (LMP Unknown) SpO2 98% Physical Exam Vitals reviewed. Constitutional: Appearance: Normal appearance. HENT: Head: Normocephalic and atraumatic. Right Ear: Tympanic membrane, ear canal and external ear normal. Left Ear: Tympanic membrane, ear canal and external ear normal. Nose: Congestion present. Mouth/Throat: Mouth: Mucous membranes are moist. Pharynx: Oropharynx is clear. Neck: Comments: Patient has a open sore at the midline back of the neck with abrasion linear extending right and left from this likely from the strap on her BiPAP. No sign of abscess. No drainage. Cardiovascular: Rate and Rhythm: Normal rate and regular rhythm. Heart sounds: Normal heart sounds. Pulmonary: Effort: Pulmonary effort is normal. Breath sounds: Normal breath sounds. No wheezing, rhonchi or rales. Musculoskeletal: Cervical back: Neck supple. Lymphadenopathy: Cervical: No cervical adenopathy. Skin: Comments: Patient has erythematous rash underneath both breasts and pannus consistent with intertrigo. No signs of a cellulitis. Neurological: Mental Status: She is alert. Assessment and Plan ASSESSMENT/PLAN: 1. Intertrigo - ICD9: 695.89, ICD10: L30.4 (primary diagnosis) Given nystatin powder. She states this is worked for her in the past. Follow-up with PCP if not improving. 2. Skin sore - ICD9: 709.9, ICD10: L98.9 Given mupirocin ointment and discussed using a large bandage over the area so it does not rub on her CPAP strap. Follow-up with PCP if not improving. 3. Bronchitis - ICD9: 490, ICD10: J40 I did review her ER records from 914 including negative chest x-ray at that point as well as labs. She is already on antibiotics right now. Lungs are clear. Discussed the course of bronchitis. Discussed red flags to be seen again. Finish the doxycycline at this point. Given Tessalon for cough. Patient agreeable. Dion Escobar PA-C documented in this encounter [facility] 10-06-2022 Note . MICRO - Microbiology PROCEDURE: Urine Culture [*1] SOURCE: Urine BODY SITE: COLLECTED DATE/TIME: 10/03/2022 14:30 EDT RECEIVED DATE/TIME: 10/04/2022 14:41 EDT START DATE/TIME: 10/04/2022 14:41 EDT FREE TEXT SOURCE: FINAL REPORTS Final Report [] Verified Date/Time/Personnel: 10/06/2022 07:29 EDT 10,000 - 50,000 cfu/ml Mixed growth consistent with normal urogenital [place]. PRELIMINARY REPORTS Preliminary Report [] Verified Date/Time/Personnel: 10/05/2022 09:29 EDT No growth to date Performing Locations *1: This test was performed at: [facility], [address] [place] [address], [id number] , [facility] ([place]) 10-03-2022 Hospital Discharge instructions Patient Education 10/03/2022 16:18:34 Chest Pain, Uncertain Cause Uncertain Causes of Chest Pain Chest pain can happen for a number of reasons. Sometimes the cause can't be determined. If your condition does not seem serious, and your pain does not appear to be coming from your heart, your healthcare provider may recommend watching it closely. Sometimes the signs of a serious problem take more time to appear. Many problems not related to your heart can cause chest pain. These include: Musculoskeletal. Costochondritis is an inflammation of the tissues around the ribs that can occur from trauma or overuse injuries, or a strain of the muscles of the chest wall Respiratory. Pneumonia, collapsed lung (pneumothorax), or inflammation of the lining of the chest and lungs (pleurisy) Gastrointestinal. Esophageal reflux, heartburn, ulcers, or gallbladder disease Anxiety and panic disorders Nerve compression and inflammation Rare miscellaneous problems such as aortic aneurysm (a swelling of the large artery coming out of the heart) or pulmonary embolism (a blood clot in the lungs) Home care After your visit, follow these recommendations: Rest today and avoid strenuous activity. Take any prescribed medicine as directed. Be aware of any recurrent chest pain and notice any changes Follow-up care Follow up with your healthcare provider if you do not start to feel better within 24 hours, or as advised. Call 911 Call 911 if any of these occur: A change in the type of pain: if it feels different, becomes more severe, lasts longer, or begins to spread into your shoulder, arm, neck, jaw or back Shortness of breath or increased pain with breathing Weakness, dizziness, or fainting Rapid heart beat Crushing sensation in your chest When to seek medical advice Call your healthcare provider right away if any of the following occur: Cough with dark colored sputum (phlegm) or blood Fever of 100.4 F (38 C) or higher, or as directed by your healthcare provider Swelling, pain or redness in one leg [id number] [employer]. [address] [place] [address], [place] [address]. All rights reserved. This information is not intended as a substitute for professional medical care. Always follow your healthcare professional's instructions. 10/03/2022 16:18:17 Bladder Infection, Female (Adult) Bladder Infection, Female (Adult) Urine is normally doesn't have any bacteria in it. But bacteria can get into the urinary tract from the skin around the rectum. Or they can travel in the blood from elsewhere in the body. Once they are in your urinary tract, they can cause infection in the urethra (urethritis), the bladder (cystitis), or the kidneys (pyelonephritis). The most common place for an infection is in the bladder. This is called a bladder infection. This is one of the most common infections in women. Most bladder infections are easily treated. They are not serious unless the infection spreads to the kidney. The phrases bladder infection, UTI, and cystitis are often used to describe the same thing. But they are not always the same. Cystitis is an inflammation of the bladder. The most common cause of cystitis is an infection. Symptoms The infection causes inflammation in the urethra and bladder. This causes many of the symptoms. The most common symptoms of a bladder infection are: Pain or burning when urinating Having to urinate more often than usual Urgent need to urinate Only a small amount of urine comes out Blood in urine Abdominal discomfort. This is usually in the lower abdomen above the pubic bone. Cloudy urine Strong- or bad-smelling urine Unable to urinate (urinary retention) Unable to hold urine in (urinary incontinence) Fever Loss of appetite Confusion (in older adults) Causes Bladder infections are not contagious. You can't get one from someone else, from a toilet seat, or from sharing a bath. The most common cause of bladder infections is bacteria from the bowels. The bacteria get onto the skin around the opening of the urethra. From there, they can get into the urine and travel up to the bladder, causing inflammation and infection. This usually happens because of: Wiping improperly after urinating. Always wipe from front to back. Bowel incontinence Procedures such as having a catheter inserted Older age Not emptying your bladder. This can allow bacteria a chance to grow in your urine. Dehydration Constipation Sex Use of a diaphragm for control Treatment Bladder infections are diagnosed by a urine test. They are treated with antibiotics and usually clear up quickly without complications. Treatment helps prevent a more serious kidney infection. Medicines Medicines can help in the treatment of a bladder infection: Take antibiotics until they are used up, even if you feel better. It is important to finish them to make sure the infection has cleared. You can use acetaminophen or ibuprofen for pain, fever, or discomfort, unless another medicine was prescribed. If you have chronic liver or kidney disease, talk with your healthcare provider before using these medicines. Also talk with your provider if you've ever had a stomach ulcer or gastrointestinal bleeding, or are taking blood-thinner medicines. If you are given phenazopydridine to reduce burning with urination, it will cause your urine to become a bright orange color. This can stain clothing. Care and prevention These self-care steps can help prevent future infections: Drink plenty of fluids to prevent dehydration and flush out your bladder. Do this unless you must restrict fluids for other health reasons, or your doctor told you not to. Proper cleaning after going to the bathroom is important. Wipe from front to back after using the toilet to prevent the spread of bacteria. Urinate more often. Don't try to hold urine in for a long time. Wear loose-fitting clothes and cotton underwear. Avoid tight-fitting pants. Improve your diet and prevent constipation. Eat more fresh fruit and vegetables, and fiber, and less junk and fatty foods. Avoid sex until your symptoms are gone. Avoid caffeine, alcohol, and spicy foods. These can irritate your bladder. Urinate right after intercourse to flush out your bladder. If you use control pills and have frequent bladder infections, discuss it with your doctor. Follow-up care Call your healthcare provider if all symptoms are not gone after 3 days of treatment. This is especially important if you have repeat infections. If a culture was done, you will be told if your treatment needs to be changed. If directed, you can call to find out the results. If X-rays were done, you will be told if the results will affect your treatment. Call 911 Call 911 if any of the following occur: Trouble breathing Hard to wake up or confusion Fainting or loss of consciousness Rapid heart rate When to seek medical advice Call your healthcare provider right away if any of these occur: Fever of 100.4 F (38.0 C) or higher, or as directed by your healthcare provider Symptoms are not better by the third day of treatment Back or belly (abdominal) pain that gets worse Repeated vomiting, or unable to keep medicine down Weakness or dizziness Vaginal discharge Pain, redness, or swelling in the outer vaginal area (labia) [id number] [employer] [address] [place] [address]. All rights reserved. This information is not intended as a substitute for professional medical care. Always follow your healthcare professional's instructions. Follow Up Care 10/03/2022 13:22:37 With:JAI GANT DO Address: [address] [place] [phone] When:2-4 days Comments:Schedule appointment as soon as possible [facility] 10-03-2022 Emergency department Discharge summary Discharge Instructions Thank you for allowing [facility] to assist you with your healthcare needs. The following is important discharge information regarding your hospital visit. What to Do Next Instructions from Your Care Team Take your antibiotics for your UTI. Continue your Eliquis. Follow-up with the PCP provided to you. Return to the ED if symptoms worsen or change. No qualifying data available. Post Acute Orders No qualifying data available. You Need to Schedule the Following Appointments Follow Up with JAI GANT DO When Within 2-4 days Why: Schedule appointment as soon as possible Where: [address] [place] [address] [phone] Allergies Naprosyn (Nausea) aspirin (NAUSEA) Medications Please ask your primary doctor or pharmacist before taking any other medication not listed, including over the counter drugs, herbal medications, vitamins and or supplements as they may interact with your home medications. What How Much When Why Instructions Last Dose Unchanged acetaminophen (Tylenol Extra Strength 500 mg oral tablet) 3 tab by mouth Every 6 hours as needed for as needed for pain Unchanged albuterol (Proventil HFA MDI (90 mcg/ inh) inhalation aerosol) 2 puff(s) by inhalation Every 4 hours as needed for as needed for wheezing Managed by pulmonology Unchanged amLODIPine (amLODIPine 10 mg oral tablet) 1 tab(s) by mouth Once a day Duration: 30 Days Unchanged apixaban (Eliquis Starter Pack for Treatment of DVT and PE 5 mg oral tablet) [10mg BID x 7days-then 5mg BID] by mouth Two (2) times a day Duration: 30 Days Unchanged ascorbic acid (Vitamin C 500 mg oral tablet) 1 tab(s) by mouth Once a day Iron deficiency anemia, unspecified Iron deficiency anemia, unspecified Duration: 90 Days Unchanged atogepant (Qulipta 60 mg oral tablet) 1 tab(s) by mouth Once a day Unchanged cholecalciferol (cholecalciferol 1250 mcg (50,000 intl units) oral capsule) 1 cap by mouth Every week Vitamin D deficiency Duration: 30 Days Unchanged citalopram (CeleXA 40 mg oral tablet) 1 tab(s) by mouth Once a day Anxiety and depression Duration: 30 Days Unchanged empagliflozin (Jardiance 25 mg oral tablet) 1 tab(s) by mouth Once a day (in the morning) DM type 2, goal HbA1c < 7.5% Duration: 30 Days Unchanged febuxostat (Uloric 40 mg oral tablet) 1 tab(s) by mouth Every day Gout Duration: 30 Days Unchanged ferrous sulfate (ferrous sulfate 325 mg (65 mg elemental iron) oral delayed release tablet) 1 tab(s) by mouth Once a day Iron deficiency anemia, unspecified Duration: 90 Days Unchanged fluticasone/ umeclidinium/ vilanterol (Trelegy Ellipta 100 mcg-62.5 mcg-25 mcg/ inh inhalation powder) 1 puff(s) by inhalation Once a day Asthma in adult Duration: 90 Days Managed by Pulmonology Unchanged gabapentin (gabapentin 100 mg oral capsule) TAKE 1 CAPSULE BY MOUTH THREE TIMES DAILY Unchanged galcanezumab (Emgality Prefilled Pen 120 mg/ mL subcutaneous solution) Inject 120 mg every month by subcutaneous route. 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 Unchanged nortriptyline (nortriptyline 50 mg oral capsule) 1 cap by mouth Daily at bedtime Unchanged ondansetron (Zofran ODT use ondansetron oral tablet, disintegrating ) 4 Milligram by mouth Every 8 hours Duration: 5 Days Unchanged rimegepant (Nurtec ODT 75 mg oral tablet, disintegrating) 1 tab(s) by mouth Every 24 hours as needed for as needed for migraine headache not to exceed 75 mg in 24 hours Unchanged tiZANidine (tiZANidine 4 mg oral capsule) 1 cap by mouth Two (2) times a day Unchanged traMADol (traMADol 50 mg oral tablet) 1 tab(s) by mouth Two (2) times a day Unchanged ubrogepant (Ubrelvy 100 mg oral tablet) 1 tab(s) by mouth Once as needed for as needed for migraine headache may repeat dose in 2 hours if needed. Max dose of 2 tabs in 24 hrs Unchanged valsartan (valsartan 320 mg oral tablet) 1 tab(s) by mouth Once a day Duration: 30 Days Please take this list to your next doctor s visit. Bring all medications you take, including over the counter medications, herbals and other supplements with you to your doctor s visit. Patients and families are reminded to discard old lists and to update any records with all medication providers or retail pharmacies. Education Materials Uncertain Causes of Chest Pain Chest pain can happen for a number of reasons. Sometimes the cause can't be determined. If your condition does not seem serious, and your pain does not appear to be coming from your heart, your healthcare provider may recommend watching it closely. Sometimes the signs of a serious problem take more time to appear. Many problems not related to your heart can cause chest pain. These include: Musculoskeletal. Costochondritis is an inflammation of the tissues around the ribs that can occur from trauma or overuse injuries, or a strain of the muscles of the chest wall Respiratory. Pneumonia, collapsed lung (pneumothorax), or inflammation of the lining of the chest and lungs (pleurisy) Gastrointestinal. Esophageal reflux, heartburn, ulcers, or gallbladder disease Anxiety and panic disorders Nerve compression and inflammation Rare miscellaneous problems such as aortic aneurysm (a swelling of the large artery coming out of the heart) or pulmonary embolism (a blood clot in the lungs) Home care After your visit, follow these recommendations: Rest today and avoid strenuous activity. Take any prescribed medicine as directed. Be aware of any recurrent chest pain and notice any changes Follow-up care Follow up with your healthcare provider if you do not start to feel better within 24 hours, or as advised. Call 911 Call 911 if any of these occur: A change in the type of pain: if it feels different, becomes more severe, lasts longer, or begins to spread into your shoulder, arm, neck, jaw or back Shortness of breath or increased pain with breathing Weakness, dizziness, or fainting Rapid heart beat Crushing sensation in your chest When to seek medical advice Call your healthcare provider right away if any of the following occur: Cough with dark colored sputum (phlegm) or blood Fever of 100.4 F (38 C) or higher, or as directed by your healthcare provider Swelling, pain or redness in one leg 2939-2679 [employer]. [address] [place] [address]. All rights reserved. This information is not intended as a substitute for professional medical care. Always follow your healthcare professional's instructions. Bladder Infection, Female (Adult) Urine is normally doesn't have any bacteria in it. But bacteria can get into the urinary tract from the skin around the rectum. Or they can travel in the blood from elsewhere in the body. Once they are in your urinary tract, they can cause infection in the urethra (urethritis), the bladder (cystitis), or the kidneys (pyelonephritis). The most common place for an infection is in the bladder. This is called a bladder infection. This is one of the most common infections in women. Most bladder infections are easily treated. They are not serious unless the infection spreads to the kidney. The phrases bladder infection, UTI, and cystitis are often used to describe the same thing. But they are not always the same. Cystitis is an inflammation of the bladder. The most common cause of cystitis is an infection. Symptoms The infection causes inflammation in the urethra and bladder. This causes many of the symptoms. The most common symptoms of a bladder infection are: Pain or burning when urinating Having to urinate more often than usual Urgent need to urinate Only a small amount of urine comes out Blood in urine Abdominal discomfort. This is usually in the lower abdomen above the pubic bone. Cloudy urine Strong- or bad-smelling urine Unable to urinate (urinary retention) Unable to hold urine in (urinary incontinence) Fever Loss of appetite Confusion (in older adults) Causes Bladder infections are not contagious. You can't get one from someone else, from a toilet seat, or from sharing a bath. The most common cause of bladder infections is bacteria from the bowels. The bacteria get onto the skin around the opening of the urethra. From there, they can get into the urine and travel up to the bladder, causing inflammation and infection. This usually happens because of: Wiping improperly after urinating. Always wipe from front to back. Bowel incontinence Procedures such as having a catheter inserted Older age Not emptying your bladder. This can allow bacteria a chance to grow in your urine. Dehydration Constipation Sex Use of a diaphragm for control Treatment Bladder infections are diagnosed by a urine test. They are treated with antibiotics and usually clear up quickly without complications. Treatment helps prevent a more serious kidney infection. Medicines Medicines can help in the treatment of a bladder infection: Take antibiotics until they are used up, even if you feel better. It is important to finish them to make sure the infection has cleared. You can use acetaminophen or ibuprofen for pain, fever, or discomfort, unless another medicine was prescribed. If you have chronic liver or kidney disease, talk with your healthcare provider before using these medicines. Also talk with your provider if you've ever had a stomach ulcer or gastrointestinal bleeding, or are taking blood-thinner medicines. If you are given phenazopydridine to reduce burning with urination, it will cause your urine to become a bright orange color. This can stain clothing. Care and prevention These self-care steps can help prevent future infections: Drink plenty of fluids to prevent dehydration and flush out your bladder. Do this unless you must restrict fluids for other health reasons, or your doctor told you not to. Proper cleaning after going to the bathroom is important. Wipe from front to back after using the toilet to prevent the spread of bacteria. Urinate more often. Don't try to hold urine in for a long time. Wear loose-fitting clothes and cotton underwear. Avoid tight-fitting pants. Improve your diet and prevent constipation. Eat more fresh fruit and vegetables, and fiber, and less junk and fatty foods. Avoid sex until your symptoms are gone. Avoid caffeine, alcohol, and spicy foods. These can irritate your bladder. Urinate right after intercourse to flush out your bladder. If you use control pills and have frequent bladder infections, discuss it with your doctor. Follow-up care Call your healthcare provider if all symptoms are not gone after 3 days of treatment. This is especially important if you have repeat infections. If a culture was done, you will be told if your treatment needs to be changed. If directed, you can call to find out the results. If X-rays were done, you will be told if the results will affect your treatment. Call 911 Call 911 if any of the following occur: Trouble breathing Hard to wake up or confusion Fainting or loss of consciousness Rapid heart rate When to seek medical advice Call your healthcare provider right away if any of these occur: Fever of 100.4 F (38.0 C) or higher, or as directed by your healthcare provider Symptoms are not better by the third day of treatment Back or belly (abdominal) pain that gets worse Repeated vomiting, or unable to keep medicine down Weakness or dizziness Vaginal discharge Pain, redness, or swelling in the outer vaginal area (labia) [id number] [employer]. [address] [place] [address]. All rights reserved. This information is not intended as a substitute for professional medical care. Always follow your healthcare professional's instructions. Additional Information VACCINATE! IT SAVES LIVES! Members of the community who have not yet received the COVID-19 vaccine and would like to receive it can visit one of [facility] vaccine clinics. There are many vaccine clinic locations within the [facility]. For locations and available times, please visit [email or web address] It is important to note that some COVID mobile vaccine clinics are held outdoors and may be canceled in rainy or stormy conditions. To learn more about pediatric vaccinations (ages 5-11), we invite you to visit the [facility] webpage. [email or web address] [email or web address] [email or web address] To learn more about the COVID-19 vaccine, we invite you to visit the CDC website for a list of frequently asked questions. https://www.cdc.gov/coronavirus/ 2019-ncov/vaccines/faq.html [facility] Patient Portal Access Instructions: Stay connected with your healthcare team and access your personal medical information anytime with the [facility] Patient Portal. If you would like a full copy of your medical records please contact the [facility] Medical Records Department Tuesday through Tuesday between 8a.m. and 4:30p.m. Please follow the directions below to access the portal: 1.Access the email account you provided upon registration to the [facility].2.Look for an invitation email from [facility].3.Open the email and access the invitation link: Accept Invitation to [facility]4.Fill in the required lee to create your account. Sign into [email or web address] with your username and password that you created in the above steps to stay up to date. You can then view a summary of results, a summary of your visits, and the ability to download your summaries to your computer or send the information securely to a physician. Remember that your healthcare information is confidential, so carefully consider who you will allow to register on the [facility] Patient Portal for access to your information. You can also access the [facility] Patient Portal on the [employer]er. Simply click on Health Records under Health Data and then click on the [employer] logo. HOW TO SAFELY DISPOSE OF PRESCRIPTION MEDICATIONS Please use one of the following methods to safely dispose of your unused medications. 1.Use a drug disposal kit: the drug disposal pouch allows you to safely discard your old and unused drugs. Ask your nurse to give you one when you are discharged.2.Visit a local take-back location: Many local pharmacies and police departments have programs that collect old and unwanted prescription drugs. Call your local pharmacy or go to http://bit.Bluechilli/3N3Jz4x to find one close to you.3.Make use of household items: Use cat litter or old coffee grounds to dispose medications if other options are not available. Mix your drugs with these household products, seal them in an airtight container and throw it into the garbage. Call [facility]: [phone] to be sure your drugs can be disposed of in this way. Some medicines may require a different approach.4.Never flush your medications down the toilet. IF YOU HAVE BEEN PRESCRIBED AN OPIOIDS FOR PAIN If you have been prescribed an opioid (such as hydrocodone, oxycodone or morphine), it is critical to understand the possible side effects and risks of opioid pain medications. Even when taken as directed, opioids can have several side effects including: Tolerance, meaning you might need to take more of a medication for the same pain relief. Nausea, vomiting and/or constipation. Sleepiness, dizziness, dry mouth, confusion, depression or itching. Physical dependence, meaning you have withdrawal symptoms when a medication is stopped ? this can develop within a few days. KNOW YOUR RESPONSIBILITIES It is important to know exactly how much and how often to take the opioid pain medications you are prescribed. Never take opioids in higher amounts or more often than prescribed. Do not combine opioids with alcohol or other drugs that cause drowsiness, such as benzodiazepines, also known as benzos, including diazepam and alprazolam, muscle relaxants or sleep aids. Never sell or share prescription opioids. This is illegal. Store opioids in a secure place and out of reach of others (including children, family, friends and visitors). The last page(s) of this document has been signed and retained as a CHART COPY Signatures Patient Education Materials Chest Pain, Uncertain Cause Bladder Infection, Female (Adult) Medication Leaflets My discharge plan and instructions have been reviewed and explained to me and I,KAMALA GRAY L understand my current condition and have read and understand these discharge instructions. I have received a written copy of the plan/instructions. If I have questions, I am aware that I should contact my doctor. Patient/Outside Plant Engineer Signature: Date/Time: Relationship to Patient: Witness Name/Signature: Date/Time: [facility] 10-03-2022 Note ORIGINAL EXAMINATION: CTA OF THE CHEST 10/03/2022 3:20 pm TECHNIQUE: CTA of the chest was performed after the administration of intravenous contrast. Multiplanar reformatted images are provided for review. MIP images are provided for review. Automated exposure control, iterative reconstruction, and/or weight based adjustment of the mA/kV was utilized to reduce the radiation dose to as low as reasonably achievable. COMPARISON: August 17, 2022 HISTORY: ORDERING SYSTEM PROVIDED HISTORY: Reason for Exam: chest pain; suspect PE FINDINGS: No osseous abnormality identified. No focal area of consolidation is visible and there is no pleural fluid present. No mediastinal adenopathy seen. No pulmonary artery defect is identified to indicate thromboembolism. Small previously seen defects are no longer visible. No additional contributory abnormality seen. IMPRESSION: No evidence of pulmonary embolism or acute pulmonary abnormality. Interpreted by: Wes Garcia MD Preliminary Report By: Wes Garcia MD Electronically signed By Wes Garcia MD Dictated Date: 10/03/2022 3:22:21 PM Prelim Date: 10/03/2022 3:25:19 PM Sign Date: 10/03/2022 3:25:19 PM Ordering Provider: [facility] 10-03-2022 Note ORIGINAL EXAMINATION: CT OF THE HEAD WITHOUT CONTRAST 10/03/2022 3:17 pm TECHNIQUE: CT of the head was performed without the administration of intravenous contrast. Automated exposure control, iterative reconstruction, and/or weight based adjustment of the mA/kV was utilized to reduce the radiation dose to as low as reasonably achievable. COMPARISON: 08/13/2022. HISTORY: ORDERING SYSTEM PROVIDED HISTORY: Reason for Exam: Right upper extremity numbness FINDINGS: There is no acute intracranial hemorrhage, mass effect, or abnormal extra-axial fluid collection. There is no CT evidence of acute infarct. The density in the larger dural venous sinuses is grossly normal. The ventricles are unremarkable. No acute bony findings. Grossly clear paranasal sinuses and mastoid air cells. IMPRESSION: No acute intracranial abnormality identified. I have personally reviewed the images of this examination and agree with the resident's finding and interpretation. Interpreted by: Wes Garcia MD Preliminary Report By: Andrey Luna Electronically signed By Wes Garcia MD Dictated Date: 10/03/2022 3:22:58 PM Prelim Date: 10/03/2022 3:25:54 PM Sign Date: 10/03/2022 3:27:50 PM Ordering Provider: [facility] 10-03-2022 Note ORIGINAL EXAMINATION: ONE XRAY VIEW OF THE CHEST10/03/2022 2:42 pm COMPARISON: 09/23/2022. 08/17/2022. HISTORY: ORDERING SYSTEM PROVIDED HISTORY: Reason for Exam: chest pain FINDINGS: Body habitus limits evaluation. Mildly low lung volumes. The cardiomediastinal silhouette is grossly within normal limits. There is hazy appearance of the left lung base. There is no pneumothorax or large pleural effusion visualized. No acute osseous abnormalities identified. IMPRESSION: Limited examination. Low lung volumes with slight left basilar haziness which is possibly due to atelectasis or overlying soft tissue. I have personally reviewed the images of this examination and agree with the resident's finding and interpretation. Interpreted by: Wes Garcia MD Preliminary Report By: Andrey Luna Electronically signed By Wes Garcia MD Dictated Date: 10/03/2022 2:44:55 PM Prelim Date: 10/03/2022 2:47:47 PM Sign Date: 10/03/2022 2:58:22 PM Ordering Provider: [facility] 10-03-2022 Note Sinus tachycardia Electronic Signature: SHEELA GARRIDO MD 10/03/2022 13:53:26 [facility] 09-23-2022 Hospital Discharge instructions Patient Education 09/23/2022 00:08:14 R.I.C.E. RICE RICE stands for rest, ice, compression, and elevation. Doing these things helps limit pain and swelling after an injury. RICE also helps injuries heal faster. Use RICE for sprains, strains, and severe bruises or bumps. Follow the tips on this handout and begin RICE as soon as possible after an injury. Rest Pain is your body s way of telling you to rest an injured area. Whether you have hurt an elbow, hand, foot, or knee, limiting its use will prevent further injury and help you heal. Ice Applying ice right after an injury helps prevent swelling and reduce pain. Don t place ice directly on your skin. Wrap a cold pack or bag of ice in a thin cloth. Place it over the injured area. Ice for 10 minutes every 3 hours. Don t ice for more than 20 minutes at a time. Compression Putting pressure (compression) on an injury helps prevent swelling and provides support. Wrap the injured area firmly with an elastic bandage. If your hand or foot tingles, becomes discolored, or feels cold to the touch, the bandage may be too tight. Rewrap it more loosely. If your bandage becomes too loose, rewrap it. Do not wear an elastic bandage overnight. Elevation Keeping an injury elevated helps reduce swelling, pain, and throbbing. Elevation is most effective when the injury is kept elevated higher than the heart. Call your healthcare provider if you notice any of the following: Fingers or toes feel numb, are cold to the touch, or change color. Skin looks shiny or tight. Pain, swelling, or bruising worsens and is not improved with elevation. [id number] [employer]. [address] [place] [address]. All rights reserved. This information is not intended as a substitute for professional medical care. Always follow your healthcare professional's instructions. Follow Up Care 09/22/2022 23:40:44 With:LUZ ELENA SANCHEZ MD Address: [facility] [address] [place] [address]- When:2-4 days [facility] 09-23-2022 Note Discharge Instructions Thank you for allowing [facility] to assist you with your healthcare needs. The following is important discharge information regarding your hospital visit. Diagnosis from Today's Visit Foot pain-swelling WILSON - Headache SOB - Shortness of breath What to Do Next Instructions from Your Care Team No qualifying data available. Post Acute Orders No qualifying data available. You Need to Schedule the Following Appointments Follow Up with LUZ ELENA SANCHEZ MD When Within 2-4 days Where: [facility] [address] [place] [address]- Allergies Naprosyn (Nausea) aspirin (NAUSEA) Medications Please ask your primary doctor or pharmacist before taking any other medication not listed, including over the counter drugs, herbal medications, vitamins and or supplements as they may interact with your home medications. What How Much When Why Instructions Last Dose New phenazopyridine (Pyridium 100 mg oral tablet) 1 tab(s) by mouth Three (3) times a day Duration: 3 Days Printed Prescription Unchanged acetaminophen (Tylenol Extra Strength 500 mg oral tablet) 3 tab by mouth Every 6 hours as needed for as needed for pain Unchanged albuterol (Proventil HFA MDI (90 mcg/ inh) inhalation aerosol) 2 puff(s) by inhalation Every 4 hours as needed for as needed for wheezing Managed by pulmonology Unchanged amLODIPine (amLODIPine 10 mg oral tablet) 1 tab(s) by mouth Once a day Duration: 30 Days Unchanged apixaban (Eliquis Starter Pack for Treatment of DVT and PE 5 mg oral tablet) [10mg BID x 7days-then 5mg BID] by mouth Two (2) times a day Duration: 30 Days Unchanged ascorbic acid (Vitamin C 500 mg oral tablet) 1 tab(s) by mouth Once a day Iron deficiency anemia, unspecified Iron deficiency anemia, unspecified Duration: 90 Days Unchanged atogepant (Qulipta 60 mg oral tablet) 1 tab(s) by mouth Once a day Unchanged cholecalciferol (cholecalciferol 1250 mcg (50,000 intl units) oral capsule) 1 cap by mouth Every week Vitamin D deficiency Duration: 30 Days Unchanged citalopram (CeleXA 40 mg oral tablet) 1 tab(s) by mouth Once a day Anxiety and depression Duration: 30 Days Unchanged empagliflozin (Jardiance 25 mg oral tablet) 1 tab(s) by mouth Once a day (in the morning) DM type 2, goal HbA1c < 7.5% Duration: 30 Days Unchanged febuxostat (Uloric 40 mg oral tablet) 1 tab(s) by mouth Every day Gout Duration: 30 Days Unchanged ferrous sulfate (ferrous sulfate 325 mg (65 mg elemental iron) oral delayed release tablet) 1 tab(s) by mouth Once a day Iron deficiency anemia, unspecified Duration: 90 Days Unchanged fluticasone/ umeclidinium/ vilanterol (Trelegy Ellipta 100 mcg-62.5 mcg-25 mcg/ inh inhalation powder) 1 puff(s) by inhalation Once a day Asthma in adult Duration: 90 Days Managed by Pulmonology Unchanged gabapentin (gabapentin 100 mg oral capsule) TAKE 1 CAPSULE BY MOUTH THREE TIMES DAILY Unchanged galcanezumab (Emgality Prefilled Pen 120 mg/ mL subcutaneous solution) Inject 120 mg every month by subcutaneous route. 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 Unchanged nortriptyline (nortriptyline 50 mg oral capsule) 1 cap by mouth Daily at bedtime Unchanged ondansetron (Zofran ODT use ondansetron oral tablet, disintegrating ) 4 Milligram by mouth Every 8 hours Duration: 5 Days Unchanged rimegepant (Nurtec ODT 75 mg oral tablet, disintegrating) 1 tab(s) by mouth Every 24 hours as needed for as needed for migraine headache not to exceed 75 mg in 24 hours Unchanged tiZANidine (tiZANidine 4 mg oral capsule) 1 cap by mouth Two (2) times a day Unchanged traMADol (traMADol 50 mg oral tablet) 1 tab(s) by mouth Two (2) times a day Unchanged ubrogepant (Ubrelvy 100 mg oral tablet) 1 tab(s) by mouth Once as needed for as needed for migraine headache may repeat dose in 2 hours if needed. Max dose of 2 tabs in 24 hrs Unchanged valsartan (valsartan 320 mg oral tablet) 1 tab(s) by mouth Once a day Duration: 30 Days Please take this list to your next doctor s visit. Bring all medications you take, including over the counter medications, herbals and other supplements with you to your doctor s visit. Patients and families are reminded to discard old lists and to update any records with all medication providers or retail pharmacies. Education Materials RICE RICE stands for rest, ice, compression, and elevation. Doing these things helps limit pain and swelling after an injury. RICE also helps injuries heal faster. Use RICE for sprains, strains, and severe bruises or bumps. Follow the tips on this handout and begin RICE as soon as possible after an injury. Rest Pain is your body s way of telling you to rest an injured area. Whether you have hurt an elbow, hand, foot, or knee, limiting its use will prevent further injury and help you heal. Ice Applying ice right after an injury helps prevent swelling and reduce pain. Don t place ice directly on your skin. Wrap a cold pack or bag of ice in a thin cloth. Place it over the injured area. Ice for 10 minutes every 3 hours. Don t ice for more than 20 minutes at a time. Compression Putting pressure (compression) on an injury helps prevent swelling and provides support. Wrap the injured area firmly with an elastic bandage. If your hand or foot tingles, becomes discolored, or feels cold to the touch, the bandage may be too tight. Rewrap it more loosely. If your bandage becomes too loose, rewrap it. Do not wear an elastic bandage overnight. Elevation Keeping an injury elevated helps reduce swelling, pain, and throbbing. Elevation is most effective when the injury is kept elevated higher than the heart. Call your healthcare provider if you notice any of the following: Fingers or toes feel numb, are cold to the touch, or change color. Skin looks shiny or tight. Pain, swelling, or bruising worsens and is not improved with elevation. [phone] [employer]. [address] [place] [address]. All rights reserved. This information is not intended as a substitute for professional medical care. Always follow your healthcare professional's instructions. Additional Information VACCINATE! IT SAVES LIVES! Members of the community who have not yet received the COVID-19 vaccine and would like to receive it can visit one of [facility] vaccine clinics. There are many vaccine clinic locations within the [facility] [place]. For locations and available times, please visit [email or web address] [email or web address] It is important to note that some COVID mobile vaccine clinics are held outdoors and may be canceled in rainy or stormy conditions. To learn more about pediatric vaccinations (ages 5-11), we invite you to visit the [facility] webpage. [email or web address] To learn more about the COVID-19 vaccine, we invite you to visit the CDC website for a list of frequently asked questions. https://www.cdc.gov/coronavirus/ 2019-ncov/vaccines/faq.html [facility] Patient Portal Access Instructions: Stay connected with your healthcare team and access your personal medical information anytime with the [facility] [employer] Patient Portal. If you would like a full copy of your medical records please contact the [facility] Medical Records Department Tuesday through Tuesday between 8a.m. and 4:30p.m. Please follow the directions below to access the portal: 1.Access the email account you provided upon registration to the [facility].2.Look for an invitation email from [facility].3.Open the email and access the invitation link: Accept Invitation to [facility] [employer]4.Fill in the required lee to create your account. Sign into [email or web address] with your username and password that you created in the above steps to stay up to date. You can then view a summary of results, a summary of your visits, and the ability to download your summaries to your computer or send the information securely to a physician. Remember that your healthcare information is confidential, so carefully consider who you will allow to register on the [facility] [employer] Patient Portal for access to your information. You can also access the [facility] [employer] Patient Portal on the [employer]. Simply click on Health Records under Health Data and then click on the [employer] logo. HOW TO SAFELY DISPOSE OF PRESCRIPTION MEDICATIONS Please use one of the following methods to safely dispose of your unused medications. 1.Use a drug disposal kit: the drug disposal pouch allows you to safely discard your old and unused drugs. Ask your nurse to give you one when you are discharged.2.Visit a local take-back location: Many local pharmacies and police departments have programs that collect old and unwanted prescription drugs. Call your local pharmacy or go to http://[employer].Bluechilli/2E9Jf3f to find one close to you.3.Make use of household items: Use cat litter or old coffee grounds to dispose medications if other options are not available. Mix your drugs with these household products, seal them in an airtight container and throw it into the garbage. Call [facility]: [phone] to be sure your drugs can be disposed of in this way. Some medicines may require a different approach.4.Never flush your medications down the toilet. IF YOU HAVE BEEN PRESCRIBED AN OPIOIDS FOR PAIN If you have been prescribed an opioid (such as hydrocodone, oxycodone or morphine), it is critical to understand the possible side effects and risks of opioid pain medications. Even when taken as directed, opioids can have several side effects including: Tolerance, meaning you might need to take more of a medication for the same pain relief. Nausea, vomiting and/or constipation. Sleepiness, dizziness, dry mouth, confusion, depression or itching. Physical dependence, meaning you have withdrawal symptoms when a medication is stopped ? this can develop within a few days. KNOW YOUR RESPONSIBILITIES It is important to know exactly how much and how often to take the opioid pain medications you are prescribed. Never take opioids in higher amounts or more often than prescribed. Do not combine opioids with alcohol or other drugs that cause drowsiness, such as benzodiazepines, also known as benzos, including diazepam and alprazolam, muscle relaxants or sleep aids. Never sell or share prescription opioids. This is illegal. Store opioids in a secure place and out of reach of others (including children, family, friends and visitors). The last page(s) of this document has been signed and retained as a CHART COPY Signatures Patient Education Materials R.[employer].C.E. Medication Leaflets My discharge plan and instructions have been reviewed and explained to me and I,ISAAC KAMALA L understand my current condition and have read and understand these discharge instructions. I have received a written copy of the plan/instructions. If I have questions, I am aware that I should contact my doctor. 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 Normal cardiomediastinal silhouette. No vascular congestion, dense consolidation, large pleural effusion, or pneumothorax. No acute bony abnormality. Unchanged mild elevation of the right hemidiaphragm. IMPRESSION: No acute radiographic process. I have personally reviewed the images of this examination, and agree with the resident's findings and interpretation. Interpreted by: Herbert Stark MD Preliminary Report By: Karla Hall Electronically signed By Herbert Stark MD Dictated Date: 09/23/2022 12:21:06 AM Prelim Date: 09/23/2022 12:22:39 AM Sign Date: 09/23/2022 12:30:42 AM Ordering Provider: [facility] 08-17-2022 Note HNO ID: [id number] Author: Whitley Hsieh APRN.LOGGING SHOVEL OPERATOR Service: ? Author Type: Nurse Practitioner Type: Progress Notes Filed: 08/17/2022 2:48 PM Note Text: Subjective HPI Kamala Gray is a 52 year old female who presents with a headache and nausea. She was seen here on 08/13 for a fall that occurred 2 days prior. She was referred to ER. Patient states she went to [facility] for treatment, had a CT scan which was negative. She has had a headache and nausea since. She has not had any nausea. She rates her headache pain 9/10. She took tylenol for pain at home. She is not taking any blood thinners. Review of Systems Constitutional: Negative for chills and fever. Respiratory: Negative. Cardiovascular: Negative. Neurological: Positive for headaches. Negative for dizziness, tingling, tremors, sensory change, speech change, focal weakness, seizures, loss of consciousness and weakness. BP 188/96 Pulse 83 Temp 36.8 ?C (98.2 ?F) Resp 16 Wt 114.3 kg (252 lb) LMP (LMP Unknown) Vitals rechecked prior to discharge: BP 182/94 Pulse 83 Temp 36.8 ?C (98.2 ?F) Resp 16 Wt 114.3 kg (252 lb) LMP (LMP Unknown) SpO2 98% PAST MEDICAL HISTORY Diagnosis Date Asthma with COPD (HCC) Celiac disease CKD (chronic kidney disease) Diabetes mellitus type 2 (HCC) Gout Hyperlipidemia Hypertension Hypothyroidism Microcytic anemia Obesity, Class III, BMI 40-49.9 (morbid obesity) (HCC) Renal calculi No past surgical history on file. ALLERGIES Hydrochlorothiazide, Naproxen, and Asa [Salicylates] MEDICATIONS ondansetron orally disintegrating (ZOFRAN ODT) 4 mg disintegrating tabletTake 1 tablet by mouth every 6 hours as needed for nausea/vomiting.Disp: 12 tabletRfl: 0 guaiFENesin (MUCINEX FAST-MAX CHEST-CONGEST) 100 mg/5 mL syrupTake 20 mL by mouth every 4 hours as needed.Disp: 120 mLRfl: 0 (Patient not taking: Reported on 07/28/2022) megestrol (MEGACE) 40 mg tabletTake 40 mg by mouth once daily.Disp: Rfl: TRELEGY ELLIPTA 100-62.5-25 mcgINHALE 1 PUFF DAILY with good oral careDisp: Rfl: levothyroxine (SYNTHROID) 300 mcg tabletTake by mouth. Not takingDisp: 120 tabletRfl: 11 acetaminophen(TYLENOL 325 MG TAB)Disp: Rfl: 0 No family history on file. Social History Tobacco Use Smoking status: Never Smokeless tobacco: Never Substance Use Topics Alcohol use: No Drug use: Never Objective Physical Exam Vitals and nursing note reviewed. Constitutional: General: She is not in acute distress. Appearance: Normal appearance. Eyes: Extraocular Movements: Extraocular movements intact. Right eye: No nystagmus. Left eye: No nystagmus. Pupils: Pupils are equal, round, and reactive to light. Cardiovascular: Rate and Rhythm: Normal rate and regular rhythm. Heart sounds: Normal heart sounds. Pulmonary: Effort: Pulmonary effort is normal. No respiratory distress. Breath sounds: Normal breath sounds. No wheezing or rales. Skin: General: Skin is warm and dry. Findings: No erythema or rash. Neurological: General: No focal deficit present. Mental Status: She is alert and oriented to person, place, and time. Motor: Motor function is intact. No weakness or tremor. Coordination: Coordination normal. Gait: Gait is intact. Gait normal. Psychiatric: Mood and Affect: Mood normal. ASSESSMENT/PLAN: 1. Headache, unspecified headache type - ICD9: 784.0, ICD10: R51.9 (primary diagnosis) - KETOROLAC 60 MG/2 ML INTRAMUSCULAR SOLUTION-given in office. Patient rates pain 8/10 at discharge. - Advised to go to ER if symptoms worsen. 2. Nausea - ICD9: 787.02, ICD10: R11.0 - ONDANSETRON 4 MG DISINTEGRATING TABLET - Follow-up with your PCP in 3-5 days if symptoms have not improved or sooner if symptoms worsen - Discussed red flags and need for immediate medical evaluation if any occur. - Discussed supportive care treatment with fluids, rest and analgesia. - Discussed expected course of illness Whitley Hsieh APRN.CNP [facility] 08-17-2022 Instructions Whitley Hsieh APRN.CNP - 08/17/2022 2:48 PM EDT ASSESSMENT/PLAN: 1. Headache, unspecified headache type - ICD9: 784.0, ICD10: R51.9 (primary diagnosis) - KETOROLAC 60 MG/2 ML INTRAMUSCULAR SOLUTION-given in office. Patient rates pain 8/10 at discharge. - Advised to go to ER if symptoms worsen. 2. Nausea - ICD9: 787.02, ICD10: R11.0 - ONDANSETRON 4 MG DISINTEGRATING TABLET - Follow-up with your PCP in 3-5 days if symptoms have not improved or sooner if symptoms worsen - Discussed red flags and need for immediate medical evaluation if any occur. - Discussed supportive care treatment with fluids, rest and analgesia. - Discussed expected course of illness Whitley Hsieh APRN.CNP documented in this encounter [facility] 08-17-2022 History of Present illness Narrative Subjective HPI Kamala Gray is a 52 year old female who presents with a headache and nausea. She was seen here on 08/13 for a fall that occurred 2 days prior. She was referred to ER. Patient states she went to [facility] for treatment, had a CT scan which was negative. She has had a headache and nausea since. She has not had any nausea. She rates her headache pain 9/10. She took tylenol for pain at home. She is not taking any blood thinners. Review of Systems Constitutional: Negative for chills and fever. Respiratory: Negative. Cardiovascular: Negative. Neurological: Positive for headaches. Negative for dizziness, tingling, tremors, sensory change, speech change, focal weakness, seizures, loss of consciousness and weakness. BP 188/96 Pulse 83 Temp 36.8 C (98.2 F) Resp 16 Wt 114.3 kg (252 lb) LMP (LMP Unknown) Vitals rechecked prior to discharge: BP 182/94 Pulse 83 Temp 36.8 C (98.2 F) Resp 16 Wt 114.3 kg (252 lb) LMP (LMP Unknown) SpO2 98% PAST MEDICAL HISTORY Diagnosis Date Asthma with COPD (HCC) Celiac disease CKD (chronic kidney disease) Diabetes mellitus type 2 (HCC) Gout Hyperlipidemia Hypertension Hypothyroidism Microcytic anemia Obesity, Class III, BMI 40-49.9 (morbid obesity) (HCC) Renal calculi No past surgical history on file. ALLERGIES Hydrochlorothiazide, Naproxen, and Asa [Salicylates] MEDICATIONS ondansetron orally disintegrating (ZOFRAN ODT) 4 mg disintegrating tablet^Take 1 tablet by mouth every 6 hours as needed for nausea/vomiting.^Disp: 12 tablet^Rfl: 0 guaiFENesin (MUCINEX FAST-MAX CHEST-CONGEST) 100 mg/5 mL syrup^Take 20 mL by mouth every 4 hours as needed.^Disp: 120 mL^Rfl: 0 (Patient not taking: Reported on 07/28/2022) megestrol (MEGACE) 40 mg tablet^Take 40 mg by mouth once daily.^Disp: ^Rfl: TRELEGY ELLIPTA 100-62.5-25 mcg^INHALE 1 PUFF DAILY with good oral care^Disp: ^Rfl: levothyroxine (SYNTHROID) 300 mcg tablet^Take by mouth. Not taking^Disp: 120 tablet^Rfl: 11 acetaminophen(TYLENOL 325 MG TAB)^^Disp: ^Rfl: 0 No family history on file. Social History Tobacco Use Smoking status: Never Smokeless tobacco: Never Substance Use Topics Alcohol use: No Drug use: Never Objective Physical Exam Vitals and nursing note reviewed. Constitutional: General: She is not in acute distress. Appearance: Normal appearance. Eyes: Extraocular Movements: Extraocular movements intact. Right eye: No nystagmus. Left eye: No nystagmus. Pupils: Pupils are equal, round, and reactive to light. Cardiovascular: Rate and Rhythm: Normal rate and regular rhythm. Heart sounds: Normal heart sounds. Pulmonary: Effort: Pulmonary effort is normal. No respiratory distress. Breath sounds: Normal breath sounds. No wheezing or rales. Skin: General: Skin is warm and dry. Findings: No erythema or rash. Neurological: General: No focal deficit present. Mental Status: She is alert and oriented to person, place, and time. Motor: Motor function is intact. No weakness or tremor. Coordination: Coordination normal. Gait: Gait is intact. Gait normal. Psychiatric: Mood and Affect: Mood normal. ASSESSMENT/PLAN: 1. Headache, unspecified headache type - ICD9: 784.0, ICD10: R51.9 (primary diagnosis) - KETOROLAC 60 MG/2 ML INTRAMUSCULAR SOLUTION-given in office. Patient rates pain 8/10 at discharge. - Advised to go to ER if symptoms worsen. 2. Nausea - ICD9: 787.02, ICD10: R11.0 - ONDANSETRON 4 MG DISINTEGRATING TABLET - Follow-up with your PCP in 3-5 days if symptoms have not improved or sooner if symptoms worsen - Discussed red flags and need for immediate medical evaluation if any occur. - Discussed supportive care treatment with fluids, rest and analgesia. - Discussed expected course of illness Whitley Hsieh APRN.LOGGING SHOVEL OPERATOR documented in this encounter [facility] 08-13-2022 Hospital Discharge instructions Patient Education 08/13/2022 21:59:10 Ankle Fracture, Distal Fibula Ankle Fracture, Distal Fibula You have a fracture, or broken bone, of the end of the fibula bone. The fibula is one of two bones that support the ankle joint. Home care You will be given a splint, cast, or special boot to prevent movement at the injury site. Do not put weight on a splint. It will break. Follow your healthcare provider s advice about when to begin bearing weight on a cast or boot. Keep your leg raised when sitting or lying down. When sleeping, place a pillow under the injured leg. When sitting, support the injured leg so it is above heart level. This is very important during the first 48 hours. Keep the cast or splint completely dry at all times. When bathing, protect the cast or splint with [address] 1 bag outside of the other. Tape each bag with duct tape at the top end or use rubber bands. Water can still leak in even when the foot is covered. So it's best to keep the cast, splint, or boot away from water. If a fiberglass cast or splint gets wet, dry it with a director hair on a cool setting. Place an ice pack over the injured area for no more than 15 to 20 minutes. Do this every 3 to 6 hours for the first 24 to 48 hours. Continue this 3 to 4 times a day as needed. To make an ice pack, put ice cubes in a plastic bag that seals at the top. Wrap the bag in a clean, thin towel or cloth. Never put ice or an ice pack directly on the skin. The ice pack can be put right on the cast or splint. As the ice melts, be careful that the cast or splint doesn t get wet. You may use [id number] pain medicine to control pain, unless another pain medicine was prescribed. If you have chronic liver or kidney disease or ever had a stomach ulcer or GI bleeding, talk with your provider before using these medicines. Follow-up care Follow up with your healthcare provider in 1 week, or as advised. This is to be sure the bone is healing properly. If you were given a splint, it may be changed to a cast or boot after the swelling goes down. If X-rays were taken, you will be told of any new findings that may affect your care. When to seek medical advice Call your healthcare provider right away if any of these occur: The plaster cast or splint becomes wet or soft The fiberglass cast or splint stays wet for more than 24 hours There is increased tightness or pain under the cast or splint Your toes become swollen, cold, blue, numb, or tingly The cast or splint becomes loose The cast or splint has a bad smell Sore areas develop under the cast or splint The cast or splint develops cracks or breaks [phone] [employer]. [address] [place] [address], [place] [address]. All rights reserved. This information is not intended as a substitute for professional medical care. Always follow your healthcare professional's instructions. Follow Up Care 08/13/2022 20:56:52 With:GEOFFREY PAGE MD Address: [facility] [address] [facility] [address] [place] [address] [phone] When:2-4 days [facility] 08-13-2022 Note ORIGINAL EXAMINATION: CT OF THE HEAD WITHOUT CONTRAST08/13/2022 9:45 pm TECHNIQUE: CT of the head was performed without the administration of intravenous contrast. Automated exposure control, iterative reconstruction, and/or weight based adjustment of the mA/kV was utilized to reduce the radiation dose to as low as reasonably achievable. COMPARISON: CT sinus January 09, 2019 HISTORY: ORDERING SYSTEM PROVIDED HISTORY: Reason for Exam: fall FINDINGS: There is no intracranial hemorrhage, mass effect or abnormal extra-axial fluid collection. There is no CT evidence for acute large territorial infarction. The ventricles are unremarkable for patient age. The skull base and calvarium demonstrate no acute abnormality. The included paranasal sinuses and mastoid air cells are predominantly clear. IMPRESSION: No acute intracranial abnormality. I have personally reviewed the images of this examination and agree with the resident's findings and interpretation. Interpreted by: Nicolás Pool Preliminary Report By: Wes Driscoll Electronically signed By Nicolás Pool Dictated Date: 08/13/2022 9:50:54 PM Prelim Date: 08/13/2022 9:54:57 PM Sign Date: 08/13/2022 10:05:04 PM Ordering Provider: INA DICKSON [facility] 08-13-2022 Note Discharge Instructions Thank you for allowing [facility] to assist you with your healthcare needs. The following is important discharge information regarding your hospital visit. Diagnosis from Today's Visit Fall Fibula fracture What to Do Next Instructions from Your Care Team Discharge Home Equipment - Ordered -- Crutches, 99 month(s), 08/13/22 21:58:00 EDT Discharge Home Equipment - Ordered -- Walking Boot, 99 month(s), 08/13/22 21:58:00 EDT Post Acute Orders No qualifying data available. You Need to Schedule the Following Appointments Follow Up with GEOFFREY PAGE MD When Within 2-4 days Where: [facility] [address] [facility] [address] [place] [address] [phone] Allergies Naprosyn (Nausea) aspirin (NAUSEA) Medications Please ask your primary doctor or pharmacist before taking any other medication not listed, including over the counter drugs, herbal medications, vitamins and or supplements as they may interact with your home medications. What How Much When Why Instructions Last Dose Changed traMADol (traMADol 50 mg oral tablet) 1 tab(s) by mouth Two (2) times a day Changed traMADol (traMADol 50 mg oral tablet) 1 tab(s) by mouth Every 6 hours Fibula fracture Duration: 3 Days Printed Prescription Unchanged acetaminophen (Tylenol Extra Strength 500 mg oral tablet) 3 tab by mouth Every 6 hours as needed for as needed for pain Unchanged albuterol (Proventil HFA MDI (90 mcg/ inh) inhalation aerosol) 2 puff(s) by inhalation Every 4 hours as needed for as needed for wheezing Managed by pulmonology Unchanged amLODIPine (amLODIPine 10 mg oral tablet) 1 tab(s) by mouth Once a day Duration: 30 Days Unchanged ascorbic acid (Vitamin C 500 mg oral tablet) 1 tab(s) by mouth Once a day Iron deficiency anemia, unspecified Iron deficiency anemia, unspecified Duration: 90 Days Unchanged atogepant (Qulipta 60 mg oral tablet) 1 tab(s) by mouth Once a day Unchanged cholecalciferol (cholecalciferol 1250 mcg (50,000 intl units) oral capsule) 1 cap by mouth Every week Vitamin D deficiency Duration: 30 Days Unchanged citalopram (CeleXA 40 mg oral tablet) 1 tab(s) by mouth Once a day Anxiety and depression Duration: 30 Days Unchanged empagliflozin (Jardiance 25 mg oral tablet) 1 tab(s) by mouth Once a day (in the morning) DM type 2, goal HbA1c < 7.5% Duration: 30 Days Unchanged febuxostat (Uloric 40 mg oral tablet) 1 tab(s) by mouth Every day Gout Duration: 30 Days Unchanged ferrous sulfate (ferrous sulfate 325 mg (65 mg elemental iron) oral delayed release tablet) 1 tab(s) by mouth Once a day Iron deficiency anemia, unspecified Duration: 90 Days Unchanged fluticasone/ umeclidinium/ vilanterol (Trelegy Ellipta 100 mcg-62.5 mcg-25 mcg/ inh inhalation powder) 1 puff(s) by inhalation Once a day Asthma in adult Duration: 90 Days Managed by Pulmonology Unchanged gabapentin (gabapentin 100 mg oral capsule) TAKE 1 CAPSULE BY MOUTH THREE TIMES DAILY Unchanged galcanezumab (Emgality Prefilled Pen 120 mg/ mL subcutaneous solution) Inject 120 mg every month by subcutaneous route. 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 Unchanged nortriptyline (nortriptyline 50 mg oral capsule) 1 cap by mouth Daily at bedtime Unchanged rimegepant (Nurtec ODT 75 mg oral tablet, disintegrating) 1 tab(s) by mouth Every 24 hours as needed for as needed for migraine headache not to exceed 75 mg in 24 hours Unchanged tiZANidine (tiZANidine 4 mg oral capsule) 1 cap by mouth Two (2) times a day Unchanged ubrogepant (Ubrelvy 100 mg oral tablet) 1 tab(s) by mouth Once as needed for as needed for migraine headache may repeat dose in 2 hours if needed. Max dose of 2 tabs in 24 hrs Unchanged valsartan (valsartan 320 mg oral tablet) 1 tab(s) by mouth Once a day Duration: 30 Days Please take this list to your next doctor s visit. Bring all medications you take, including over the counter medications, herbals and other supplements with you to your doctor s visit. Patients and families are reminded to discard old lists and to update any records with all medication providers or retail pharmacies. Education Materials Ankle Fracture, Distal Fibula You have a fracture, or broken bone, of the end of the fibula bone. The fibula is one of two bones that support the ankle joint. Home care You will be given a splint, cast, or special boot to prevent movement at the injury site. Do not put weight on a splint. It will break. Follow your healthcare provider s advice about when to begin bearing weight on a cast or boot. Keep your leg raised when sitting or lying down. When sleeping, place a pillow under the injured leg. When sitting, support the injured leg so it is above heart level. This is very important during the first 48 hours. Keep the cast or splint completely dry at all times. When bathing, protect the cast or splint with [address] 1 bag outside of the other. Tape each bag with duct tape at the top end or use rubber bands. Water can still leak in even when the foot is covered. So it's best to keep the cast, splint, or boot away from water. If a fiberglass cast or splint gets wet, dry it with a director hair on a cool setting. Place an ice pack over the injured area for no more than 15 to 20 minutes. Do this every 3 to 6 hours for the first 24 to 48 hours. Continue this 3 to 4 times a day as needed. To make an ice pack, put ice cubes in a plastic bag that seals at the top. Wrap the bag in a clean, thin towel or cloth. Never put ice or an ice pack directly on the skin. The ice pack can be put right on the cast or splint. As the ice melts, be careful that the cast or splint doesn t get wet. You may use gmdm-ezo-ngkrevt pain medicine to control pain, unless another pain medicine was prescribed. If you have chronic liver or kidney disease or ever had a stomach ulcer or GI bleeding, talk with your provider before using these medicines. Follow-up care Follow up with your healthcare provider in 1 week, or as advised. This is to be sure the bone is healing properly. If you were given a splint, it may be changed to a cast or boot after the swelling goes down. If X-rays were taken, you will be told of any new findings that may affect your care. When to seek medical advice Call your healthcare provider right away if any of these occur: The plaster cast or splint becomes wet or soft The fiberglass cast or splint stays wet for more than 24 hours There is increased tightness or pain under the cast or splint Your toes become swollen, cold, blue, numb, or tingly The cast or splint becomes loose The cast or splint has a bad smell Sore areas develop under the cast or splint The cast or splint develops cracks or breaks 0026-2855 [employer]. [address] [place] [address]. All rights reserved. This information is not intended as a substitute for professional medical care. Always follow your healthcare professional's instructions. Additional Information VACCINATE! IT SAVES LIVES! Members of the community who have not yet received the COVID-19 vaccine and would like to receive it can visit one of [facility] vaccine clinics. There are many vaccine clinic locations within the [facility]. For locations and available times, please visit [email or web address] [email or web address] It is important to note that some COVID mobile vaccine clinics are held outdoors and may be canceled in rainy or stormy conditions. To learn more about pediatric vaccinations (ages 5-11), we invite you to visit the [employer] webpage. [email or web address] [email or web address]-Freq [email or web address] To learn more about the COVID-19 vaccine, we invite you to visit the CDC website for a list of frequently asked questions. https://www.cdc.gov/coronavirus/ 2019-ncov/vaccines/faq.html [facility] Patient Portal Access Instructions: Stay connected with your healthcare team and access your personal medical information anytime with the [facility] Patient Portal. If you would like a full copy of your medical records please contact the [facility] Medical Records Department Tuesday through Tuesday between 8a.m. and 4:30p.m. Please follow the directions below to access the portal: 1.Access the email account you provided upon registration to the hospital.2.Look for an invitation email from [facility].3.Open the email and access the invitation link: Accept Invitation to [facility]4.Fill in the required lee to create your account. Sign into [email or web address] with your username and password that you created in the above steps to stay up to date. You can then view a summary of results, a summary of your visits, and the ability to download your summaries to your computer or send the information securely to a physician. Remember that your healthcare information is confidential, so carefully consider who you will allow to register on the [facility] Patient Portal for access to your information. You can also access the [facility] Patient Portal on the [employer] helder. Simply click on Health Records under [employer] and then click on the [employer] logo. HOW TO SAFELY DISPOSE OF PRESCRIPTION MEDICATIONS Please use one of the following methods to safely dispose of your unused medications. 1.Use a drug disposal kit: the drug disposal pouch allows you to safely discard your old and unused drugs. Ask your nurse to give you one when you are discharged.2.Visit a local take-back location: Many local pharmacies and police departments have programs that collect old and unwanted prescription drugs. Call your local pharmacy or go to http://[employer].Bluechilli/4N8Ku2e to find one close to you.3.Make use of household items: Use cat litter or old coffee grounds to dispose medications if other options are not available. Mix your drugs with these household products, seal them in an airtight container and throw it into the garbage. Call [facility]: [phone] to be sure your drugs can be disposed of in this way. Some medicines may require a different approach.4.Never flush your medications down the toilet. IF YOU HAVE BEEN PRESCRIBED AN OPIOIDS FOR PAIN If you have been prescribed an opioid (such as hydrocodone, oxycodone or morphine), it is critical to understand the possible side effects and risks of opioid pain medications. Even when taken as directed, opioids can have several side effects including: Tolerance, meaning you might need to take more of a medication for the same pain relief. Nausea, vomiting and/or constipation. Sleepiness, dizziness, dry mouth, confusion, depression or itching. Physical dependence, meaning you have withdrawal symptoms when a medication is stopped ? this can develop within a few days. KNOW YOUR RESPONSIBILITIES It is important to know exactly how much and how often to take the opioid pain medications you are prescribed. Never take opioids in higher amounts or more often than prescribed. Do not combine opioids with alcohol or other drugs that cause drowsiness, such as benzodiazepines, also known as benzos, including diazepam and alprazolam, muscle relaxants or sleep aids. Never sell or share prescription opioids. This is illegal. Store opioids in a secure place and out of reach of others (including children, family, friends and visitors). The last page(s) of this document has been signed and retained as a CHART COPY Signatures Patient Education Materials Ankle Fracture, Distal Fibula Medication Leaflets My discharge plan and instructions have been reviewed and explained to me and I,KAMALA GRAY understand my current condition and have read and understand these discharge instructions. I have received a written copy of the plan/instructions. If I have questions, I am aware that I should contact my doctor. 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 There is no radiopaque foreign body. IMPRESSION: No acute osseous abnormality. I have personally reviewed the images of this examination and agree with the resident's findings and interpretation. Interpreted by: Nicolás Pool Preliminary Report By: Wes Driscoll Electronically signed By Nicolás Pool Dictated Date: 08/13/2022 9:48:37 PM Prelim Date: 08/13/2022 9:50:40 PM Sign Date: 08/13/2022 10:01:45 PM Ordering Provider: INA DICKSON [facility] 08-13-2022 Note ORIGINAL EXAMINATION: XRAY VIEWS OF THE EXTREMITY 08/13/2022 9:35 pm COMPARISON: None. HISTORY: ORDERING SYSTEM PROVIDED HISTORY: Reason for Exam: fall FINDINGS: A small lucency extends obliquely through the distal fibula. There is normal alignment. No acute joint abnormality. No focal osseous lesion. There is overlying soft tissue edema. IMPRESSION: Oblique nondisplaced fracture of the distal fibula. RECOMMENDATIONS: Unavailable Interpreted by: Nicolás Pool Preliminary Report By: Nicolás Pool Electronically signed By Nicolás Pool Dictated Date: 08/13/2022 9:44:49 PM Prelim Date: 08/13/2022 9:51:40 PM Sign Date: 08/13/2022 9:51:40 PM Ordering Provider: [facility] 08-13-2022 Note ORIGINAL EXAMINATION: CT OF THE HEAD WITHOUT CONTRAST08/13/2022 9:45 pm TECHNIQUE: CT of the head was performed without the administration of intravenous contrast. Automated exposure control, iterative reconstruction, and/or weight based adjustment of the mA/kV was utilized to reduce the radiation dose to as low as reasonably achievable. COMPARISON: CT sinus January 09, 2019 HISTORY: ORDERING SYSTEM PROVIDED HISTORY: Reason for Exam: fall FINDINGS: There is no intracranial hemorrhage, mass effect or abnormal extra-axial fluid collection. There is no CT evidence for acute large territorial infarction. The ventricles are unremarkable for patient age. The skull base and calvarium demonstrate no acute abnormality. The included paranasal sinuses and mastoid air cells are predominantly clear. IMPRESSION: No acute intracranial abnormality. I have personally reviewed the images of this examination and agree with the resident's findings and interpretation. Interpreted by: Nicolás Pool Preliminary Report By: Wes Driscoll Electronically signed By Nicolás Pool Dictated Date: 08/13/2022 9:50:54 PM Prelim Date: 08/13/2022 9:54:57 PM Sign Date: 08/13/2022 10:05:04 PM Ordering Provider: [facility] 08-13-2022 Note ORIGINAL EXAMINATION: TWO XRAY VIEWS OF THE RIGHT SHOULDER08/13/2022 9:36 pm COMPARISON: None HISTORY: Reason for exam: Patient fell yesterday FINDINGS: There is no acute fracture or dislocation. There is no radiopaque foreign body. IMPRESSION: No acute osseous abnormality. I have personally reviewed the images of this examination and agree with the resident's findings and interpretation. Interpreted by: Nicolás Pool Preliminary Report By: Wes Driscoll Electronically signed By Nicolás Pool Dictated Date: 08/13/2022 9:48:37 PM Prelim Date: 08/13/2022 9:50:40 PM Sign Date: 08/13/2022 10:01:45 PM Ordering Provider: [facility] 08-13-2022 Note ORIGINAL EXAMINATION: XRAY VIEWS OF THE EXTREMITY 08/13/2022 9:35 pm COMPARISON: None. HISTORY: ORDERING SYSTEM PROVIDED HISTORY: Reason for Exam: fall FINDINGS: A small lucency extends obliquely through the distal fibula. There is normal alignment. No acute joint abnormality. No focal osseous lesion. There is overlying soft tissue edema. IMPRESSION: Oblique nondisplaced fracture of the distal fibula. RECOMMENDATIONS: Unavailable Interpreted by: Nicolás Pool Preliminary Report By: Nicolás Pool Electronically signed By Nicolás Pool Dictated Date: 08/13/2022 9:44:49 PM Prelim Date: 08/13/2022 9:51:40 PM Sign Date: 08/13/2022 9:51:40 PM Ordering Provider: INA [facility] 08-13-2022 Note HNO ID: [id number] Author: Satnam Rodriguez APRN.MARIA TERESA Service: ? Author Type: Nurse Practitioner Type: Progress Notes Filed: 08/13/2022 7:30 PM Note Text: Patient triaged at [facility]. Here today with fall 2 days ago, hit head, having h/a as well as multi joint pain. I advised patient to go to ER. Unclear what ER patient will go to. [facility] 08-13-2022 History of Present illness Narrative Patient triaged at [facility]. Here today with fall 2 days ago, hit head, having h/a as well as multi joint pain. I advised patient to go to ER. Unclear what ER patient will go to. documented in this encounter [facility] 08-05-2022 Note HNO ID: [id number] Author: RT Christiano(R) Service: ? Author Type: [employer] Professional Type: Progress Notes Filed: 08/05/2022 6:34 PM Note Text: Radiology Service Progress Note PATIENT NAME: Kamala Gray DATE OF SERVICE: August 05, 2022 TIME: 6:22 PM PATIENT IDENTITY VERIFICATION COMPLETED USING TWO (2) IDENTIFIERS: Name and Date of confirmed by patient verbally. FALL SCREENING: Has the patient had 2 falls in the last year or 1 fall with injury or currently using an Ambulatory Assistive Device (Walker, Cane, Wheelchair, Crutches, etc.)? No PATIENT GENDER DATA: Female. status: : No status: NO. PATIENT RELEVANT IMPLANT DATA REVIEWED: Yes RADIOLOGY DEPARTMENT: General X-ray: Exam(s) Completed: Lower Extremity X-Ray(s): Ankle, Left PERIPHERAL IV DATA: Not applicable SIGNED BY: Ruby Sims RT(R) August 05, 2022 6:22 PM [facility] 08-05-2022 Note HNO ID: [id number] Author: Whitley Hsieh APRN.LOGGING SHOVEL OPERATOR Service: ? Author Type: Nurse Practitioner Type: Progress Notes Filed: 08/05/2022 6:50 PM Note Text: Subjective HPI Kamala Gray is a 52 year old female who presents with left ankle pain. A wooden chair fell on her ankle yesterday. She rates her pain 10/10. She walked in from the parking lot without at limp. She has some bruising on the side of the ankle. She was in here last week after a fall and had 16 x-rays done . She is currently taking prednisone for that pain. Review of Systems Constitutional: Negative for chills and fever. Musculoskeletal: Positive for joint pain. Negative for falls. Skin: Negative for itching and rash. BP 126/82 Pulse 70 Temp 36.8 ?C (98.3 ?F) (Tympanic) Resp 18 Wt 122.5 kg (270 lb) LMP (LMP Unknown) SpO2 98% PAST MEDICAL HISTORY Diagnosis Date Asthma with COPD (HCC) Celiac disease CKD (chronic kidney disease) Diabetes mellitus type 2 (HCC) Gout Hyperlipidemia Hypertension Hypothyroidism Microcytic anemia Obesity, Class III, BMI 40-49.9 (morbid obesity) (HCC) Renal calculi No past surgical history on file. ALLERGIES Hydrochlorothiazide, Naproxen, and Asa [Salicylates] MEDICATIONS megestrol (MEGACE) 40 mg tablet Take 40 mg by mouth once daily. TRELEGY ELLIPTA 100-62.5-25 mcg INHALE 1 PUFF DAILY with good oral care levothyroxine (SYNTHROID) 300 mcg tablet Take by mouth. Not taking guaiFENesin (MUCINEX FAST-MAX CHEST-CONGEST) 100 mg/5 mL syrup Take 20 mL by mouth every 4 hours as needed. (Patient not taking: Reported on 07/28/2022) acetaminophen(TYLENOL 325 MG TAB) No family history on file. Social History Tobacco Use Smoking status: Never Smokeless tobacco: Never Substance Use Topics Alcohol use: No Drug use: Never Objective Physical Exam Vitals and nursing note reviewed. Constitutional: Appearance: Normal appearance. She is obese. Musculoskeletal: General: Swelling, tenderness and signs of injury present. No deformity. Left ankle: Swelling and ecchymosis present. No deformity. Tenderness present over the lateral malleolus. Decreased range of motion. Skin: General: Skin is warm and dry. Findings: Bruising present. No erythema or rash. Neurological: Mental Status: She is alert. ASSESSMENT/PLAN: 1. Left ankle injury, initial encounter - ICD9: 959.7, ICD10: S99.912A - XR ANKLE GENERAL 3V AP/LAT/OBL LEFT Radiologist RESULT: No acute fracture or dislocation. Joint spaces are maintained. Plantar calcaneal spur. Vascular calcifications are noted. IMPRESSION: No acute osseous abnormality Quality Assurance Analyst: ADAM Transcribe Date/Time: Aug 05 2022 6:39P Dictated by : MAE LEY MD -LUIS wrap applied to left ankle. - RICE therapy as directed. - Follow-up with your PCP in 3-5 days if symptoms have not improved or sooner if symptoms worsen - Discussed red flags and need for immediate medical evaluation if any occur. - Discussed supportive care treatment with fluids, rest and analgesia. - Discussed expected course of illness Whitley Hsieh APRN.[facility] 07-28-2022 Note HNO ID: [id number] Author: Dion Escobar PA-C Service: ? Author Type: Physician Director Drug Type: Progress Notes Filed: 07/28/2022 11:45 AM Note Text: This note was created using [employer]. Subjective Kamala Gray is a 51 year old female. HPI Presents with a chief complaint of a fall 2 days ago. She states she had just moved and her fracture was in a different place than she thought. She went to go sit down missed the chair and landed on her butt and left side. She has pain on her left forearm, left ribs, low back and neck. She did hit her head, denies any loss of consciousness or headache. No blurred or double vision. No vomiting. Denies weakness numbness or tingling. She has taken Advil saoc-wxw-kjfusrp for pain. Review of Systems Constitutional: Negative. HENT: Negative. Respiratory: Negative. Cardiovascular: Left rib pain Musculoskeletal: Positive for back pain and neck pain. Left forearm pain All other systems reviewed and are negative. PAST MEDICAL HISTORY Diagnosis Date Asthma with COPD (HCC) Celiac disease CKD (chronic kidney disease) Diabetes mellitus type 2 (HCC) Gout Hyperlipidemia Hypertension Hypothyroidism Microcytic anemia Obesity, Class III, BMI 40-49.9 (morbid obesity) (HCC) Renal calculi Current Outpatient Medications Medication Sig Dispense Refill megestrol (MEGACE) 40 mg tablet Take 40 mg by mouth once daily. TRELEGY ELLIPTA 100-62.5-25 mcg INHALE 1 PUFF DAILY with good oral care levothyroxine (SYNTHROID) 300 mcg tablet Take by mouth. Not taking 120 tablet 11 acetaminophen(TYLENOL 325 MG TAB) 0 predniSONE (DELTASONE) 20 mg tablet Take 2 tablets by mouth once daily for 5 days. 10 tablet 0 guaiFENesin (MUCINEX FAST-MAX CHEST-CONGEST) 100 mg/5 mL syrup Take 20 mL by mouth every 4 hours as needed. (Patient not taking: Reported on 07/28/2022) 120 mL 0 No current facility-administered medications for this visit. No past surgical history on file. No family history on file. Social History Tobacco Use Smoking status: Never Smokeless tobacco: Never Substance Use Topics Alcohol use: No Drug use: Never Objective BP 122/80 Pulse 62 Temp 36.7 ?C (98 ?F) Resp 18 Wt 122.5 kg (270 lb) LMP (LMP Unknown) SpO2 98% Physical Exam Cardiovascular: Rate and Rhythm: Normal rate and regular rhythm. Musculoskeletal: Comments: Patient is tender over the dorsal forearm of the left arm diffusely. No obvious swelling or bruising. Able to pronate and supinate normally. Mild pain with flexion and extension of the wrist. No tenderness over the carpal bones. Normal hand grasp strength. Radial pulse 2+. No tenderness over the medial or lateral epicondyle or radial head of the elbow. Normal flexion extension of the elbow. Patient tender on palpation of the lumbar paraspinal musculature and midline. Able to ambulate. Normal strength and sensation in lower extremities. Pain with range of motion of the back. Patient also has tenderness to the paraspinal muscles of the cervical spine. No midline tenderness. Pain with flexion and extension of the neck. Normal strength and sensation in upper extremities. Patient also tender on palpation of the left lateral ribs. No crepitus. Lungs clear on auscultation. No obvious bruising or swelling. Skin: General: Skin is warm and dry. Findings: No rash. Assessment and Plan ASSESSMENT/PLAN: 1. Fall, initial encounter - ICD9: E888.9, ICD10: W19.XXXA (primary diagnosis) X-rays are negative for fractures. Likely has multiple strains. Discussed ice, rest, Tylenol. Follow-up with PCP if not improving over the next week. Patient requesting anti-inflammatory, has chronic kidney disease and I did write a short course of prednisone. - XR FOREARM GENERAL 2V AP/LAT LEFT - XR CERV OTHER 4V AP/LAT/OBL - XR LUMBAR GENERAL 3V AP/LAT/L5-S1 - XR RIBS/CHEST 3V AP RIB/OBLS/CXR LEFT 2. Unspecified site of sprain and strain - ICD9: 848.9, ICD10: T14.8XXA Dion Escobar PA-C [facility] 07-28-2022 Note HNO ID: [id number] Author: RT Mimi(R) Service: Radiology Author Type: Technologist Type: Progress Notes Filed: 07/28/2022 10:29 AM Note Text: Radiology Service Progress Note PATIENT NAME: Kamala Gray DATE OF SERVICE: July 28, 2022 TIME: 10:10 AM PATIENT IDENTITY VERIFICATION COMPLETED USING TWO (2) IDENTIFIERS: Name and Date of confirmed by patient verbally. FALL SCREENING: Has the patient had 2 falls in the last year or 1 fall with injury or currently using an Ambulatory Assistive Device (Walker, Cane, Wheelchair, Crutches, etc.)? Yes, Patient High Risk for Falls What interventions were put in place to prevent falls during this visit? Instructed Patient to Call for Help if Needed, Offered Assistance with Transfers/Clothing, and Increased Observations by Caregivers PATIENT GENDER DATA: Female. status: : No status: NO. PATIENT RELEVANT IMPLANT DATA REVIEWED: Yes RADIOLOGY DEPARTMENT: General X-ray: Exam(s) Completed: Rib X-Ray: Left Spine X-Ray(s): Cervical AP / LAT / OBL and Lumbar AP / LAT / L5-S1 Upper Extremity X-Ray(s): Forearm, left PERIPHERAL IV DATA: Not applicable SIGNED BY: RT Mimi(R) July 28, 2022 10:10 AM [facility] 07-28-2022 History of Present illness Narrative This note was created using [employer]. Subjective Kamala Gray is a 51 year old female. HPI Presents with a chief complaint of a fall 2 days ago. She states she had just moved and her fracture was in a different place than she thought. She went to go sit down missed the chair and landed on her butt and left side. She has pain on her left forearm, left ribs, low back and neck. She did hit her head, denies any loss of consciousness or headache. No blurred or double vision. No vomiting. Denies weakness numbness or tingling. She has taken Advil gwqk-nyi-hqdjwju for pain. Review of Systems Constitutional: Negative. HENT: Negative. Respiratory: Negative. Cardiovascular: Left rib pain Musculoskeletal: Positive for back pain and neck pain. Left forearm pain All other systems reviewed and are negative. PAST MEDICAL HISTORY Diagnosis Date Asthma with COPD (HCC) Celiac disease CKD (chronic kidney disease) Diabetes mellitus type 2 (HCC) Gout Hyperlipidemia Hypertension Hypothyroidism Microcytic anemia Obesity, Class III, BMI 40-49.9 (morbid obesity) (HCC) Renal calculi Current Outpatient Medications Medication Sig Dispense Refill megestrol (MEGACE) 40 mg tablet Take 40 mg by mouth once daily. TRELEGY ELLIPTA 100-62.5-25 mcg INHALE 1 PUFF DAILY with good oral care levothyroxine (SYNTHROID) 300 mcg tablet Take by mouth. Not taking 120 tablet 11 acetaminophen(TYLENOL 325 MG TAB) 0 predniSONE (DELTASONE) 20 mg tablet Take 2 tablets by mouth once daily for 5 days. 10 tablet 0 guaiFENesin (MUCINEX FAST-MAX CHEST-CONGEST) 100 mg/5 mL syrup Take 20 mL by mouth every 4 hours as needed. (Patient not taking: Reported on 07/28/2022) 120 mL 0 No current facility-administered medications for this visit. No past surgical history on file. No family history on file. Social History Tobacco Use Smoking status: Never Smokeless tobacco: Never Substance Use Topics Alcohol use: No Drug use: Never Objective BP 122/80 Pulse 62 Temp 36.7 C (98 F) Resp 18 Wt 122.5 kg (270 lb) LMP (LMP Unknown) SpO2 98% Physical Exam Cardiovascular: Rate and Rhythm: Normal rate and regular rhythm. Musculoskeletal: Comments: Patient is tender over the dorsal forearm of the left arm diffusely. No obvious swelling or bruising. Able to pronate and supinate normally. Mild pain with flexion and extension of the wrist. No tenderness over the carpal bones. Normal hand grasp strength. Radial pulse 2+. No tenderness over the medial or lateral epicondyle or radial head of the elbow. Normal flexion extension of the elbow. Patient tender on palpation of the lumbar paraspinal musculature and midline. Able to ambulate. Normal strength and sensation in lower extremities. Pain with range of motion of the back. Patient also has tenderness to the paraspinal muscles of the cervical spine. No midline tenderness. Pain with flexion and extension of the neck. Normal strength and sensation in upper extremities. Patient also tender on palpation of the left lateral ribs. No crepitus. Lungs clear on auscultation. No obvious bruising or swelling. Skin: General: Skin is warm and dry. Findings: No rash. Assessment and Plan ASSESSMENT/PLAN: 1. Fall, initial encounter - ICD9: E888.9, ICD10: W19.XXXA (primary diagnosis) X-rays are negative for fractures. Likely has multiple strains. Discussed ice, rest, Tylenol. Follow-up with PCP if not improving over the next week. Patient requesting anti-inflammatory, has chronic kidney disease and I did write a short course of prednisone. - XR FOREARM GENERAL 2V AP/LAT LEFT - XR CERV OTHER 4V AP/LAT/OBL - XR LUMBAR GENERAL 3V AP/LAT/L5-S1 - XR RIBS/CHEST 3V AP RIB/OBLS/CXR LEFT 2. Unspecified site of sprain and strain - ICD9: 848.9, ICD10: T14.8XXA Dion Escobar PA-C documented in this encounter [facility] 05-18-2022 Note HNO ID: [id number] Author: Satnam Rodriguez APRN.[facility] Service: ? Author Type: Nurse Practitioner Type: Progress Notes Filed: 05/18/2022 4:22 PM Note Text: Subjective HPI HPI Kamala Garcia Gray is a 51 year old female who presents today for CC of right foot pain. This started 2 days ago. Has tried nothing for relief. Symptoms are worsened by nothing. Risk factors recently stuck for IV multiple times in foot. Patient diabetic. Denies injury to foot. .Patient presents with: right foot pain: X 2 days PAST MEDICAL HISTORY Diagnosis Date Asthma with COPD (HCC) Celiac disease CKD (chronic kidney disease) Diabetes mellitus type 2 (HCC) Gout Hyperlipidemia Hypertension Hypothyroidism Microcytic anemia Obesity, Class III, BMI 40-49.9 (morbid obesity) (HCC) Renal calculi No past surgical history on file. ALLERGIES Hydrochlorothiazide, Naproxen, and Asa [Salicylates] MEDICATIONS guaiFENesin (MUCINEX FAST-MAX CHEST-CONGEST) 100 mg/5 mL syrup Take 20 mL by mouth every 4 hours as needed. megestrol (MEGACE) 40 mg tablet Take 40 mg by mouth once daily. TRELEGY ELLIPTA 100-62.5-25 mcg INHALE 1 PUFF DAILY with good oral care levothyroxine (SYNTHROID) 300 mcg tablet Take by mouth. Not taking acetaminophen(TYLENOL 325 MG TAB) doxycycline monohydrate 100 mg tablet Take 1 tablet by mouth twice daily for 7 days. No family history on file. Social History Tobacco Use Smoking status: Never Smokeless tobacco: Never Substance Use Topics Alcohol use: No Drug use: Never ROS Objective Blood pressure 146/86, pulse 89, temperature 37.6 ?C (99.6 ?F), temperature source Tympanic, resp. rate 18, weight 121.2 kg (267 lb 3.2 oz), SpO2 100 %. Physical Exam Constitutional: General: She is not in acute distress. Appearance: She is not toxic-appearing or diaphoretic. HENT: Head: Normocephalic and atraumatic. Pulmonary: Effort: Pulmonary effort is normal. No accessory muscle usage or respiratory distress. Musculoskeletal: Feet: Neurological: Mental Status: She is alert and oriented to person, place, and time. ASSESSMENT/PLAN: 1. Foot infection - ICD9: 686.9, ICD10: L08.9 Concerns with elevated temp today - Begin treatment with doxy - No lymphangetic streaking, this was defined for patient to watch for and to seek medical care immediately if appears - Follow up for recheck in two days, has appt with pcp. Go to ER for worsening s/s - DOXYCYCLINE MONOHYDRATE 100 MG TABLET Satnam Rodriguez APRN.CNP [facility] 05-04-2022 Note HNO ID: [id number] Author: Dion Escobar PA-C Service: ? Author Type: Physician Director Drug Type: Progress Notes Filed: 05/04/2022 4:03 PM Note Text: This note was created using [employer]. Subjective Kamala Gray is a 51 year old female. HPI Presents with abdominal pain since last night. She is also very nauseated and states she has not drink any water today. She feels like her mouth is dry. She is a type II diabetic. Has not checked her blood sugar. Also has kidney disease. Has history of known umbilical hernia. She has not had any laparoscopic surgery that she knows of. Review of Systems Constitutional: Positive for fatigue. Negative for fever. HENT: Negative. Respiratory: Negative. Cardiovascular: Negative. Gastrointestinal: Positive for abdominal pain, nausea and vomiting. Negative for diarrhea. Genitourinary: Negative. Musculoskeletal: Negative. Skin: Positive for rash. Neurological: Negative. All other systems reviewed and are negative. PAST MEDICAL HISTORY Diagnosis Date Asthma with COPD (HCC) Celiac disease CKD (chronic kidney disease) Diabetes mellitus type 2 (HCC) Gout Hyperlipidemia Hypertension Hypothyroidism Microcytic anemia Obesity, Class III, BMI 40-49.9 (morbid obesity) (HCC) Renal calculi Current Outpatient Medications Medication Sig Dispense Refill guaiFENesin (MUCINEX FAST-MAX CHEST-CONGEST) 100 mg/5 mL syrup Take 20 mL by mouth every 4 hours as needed. 120 mL 0 megestrol (MEGACE) 40 mg tablet Take 40 mg by mouth once daily. TRELEGY ELLIPTA 100-62.5-25 mcg INHALE 1 PUFF DAILY with good oral care levothyroxine (SYNTHROID) 300 mcg tablet Take by mouth. Not taking 120 tablet 11 acetaminophen(TYLENOL 325 MG TAB) 0 No current facility-administered medications for this visit. No past surgical history on file. No family history on file. Social History Tobacco Use Smoking status: Never Smokeless tobacco: Never Substance Use Topics Alcohol use: No Drug use: Never Objective BP 148/88 Pulse 87 Temp 36.9 ?C (98.4 ?F) (Tympanic) Resp 18 Wt 121.4 kg (267 lb 9.6 oz) LMP (LMP Unknown) SpO2 99% Physical Exam Vitals reviewed. Constitutional: Appearance: Normal appearance. HENT: Head: Normocephalic and atraumatic. Abdominal: Comments: Patient has erythema and warmth surrounding the umbilicus with tenderness to palpation on the inside of the umbilicus. Fluctuance palpated. No lymphangitic streaking. Skin: General: Skin is warm and dry. Neurological: Mental Status: She is alert. Assessment and Plan ASSESSMENT/PLAN: 1. Cellulitis of skin - ICD9: 682.9, ICD10: L03.90 -Concern for possible intra-abdominal abscess/incarcerated hernia. Patient has systemic symptoms with nausea and vomiting and not able to drink any water today. Also type II diabetic with kidney disease. Recommended further evaluation in the emergency department. Patient went to [facility]. Report given via ER passport. Dion Escobar PA-C [facility] 05-04-2022 History of Present illness Narrative Images from the original note were not included. This note was created using [employer]. Subjective Kamala Gray is a 51 year old female. HPI Presents with abdominal pain since last night. She is also very nauseated and states she has not drink any water today. She feels like her mouth is dry. She is a type II diabetic. Has not checked her blood sugar. Also has kidney disease. Has history of known umbilical hernia. She has not had any laparoscopic surgery that she knows of. Review of Systems Constitutional: Positive for fatigue. Negative for fever. HENT: Negative. Respiratory: Negative. Cardiovascular: Negative. Gastrointestinal: Positive for abdominal pain, nausea and vomiting. Negative for diarrhea. Genitourinary: Negative. Musculoskeletal: Negative. Skin: Positive for rash. Neurological: Negative. All other systems reviewed and are negative. PAST MEDICAL HISTORY Diagnosis Date Asthma with COPD (HCC) Celiac disease CKD (chronic kidney disease) Diabetes mellitus type 2 (HCC) Gout Hyperlipidemia Hypertension Hypothyroidism Microcytic anemia Obesity, Class III, BMI 40-49.9 (morbid obesity) (HCC) Renal calculi Current Outpatient Medications Medication Sig Dispense Refill guaiFENesin (MUCINEX FAST-MAX CHEST-CONGEST) 100 mg/5 mL syrup Take 20 mL by mouth every 4 hours as needed. 120 mL 0 megestrol (MEGACE) 40 mg tablet Take 40 mg by mouth once daily. TRELEGY ELLIPTA 100-62.5-25 mcg INHALE 1 PUFF DAILY with good oral care levothyroxine (SYNTHROID) 300 mcg tablet Take by mouth. Not taking 120 tablet 11 acetaminophen(TYLENOL 325 MG TAB) 0 No current facility-administered medications for this visit. No past surgical history on file. No family history on file. Social History Tobacco Use Smoking status: Never Smokeless tobacco: Never Substance Use Topics Alcohol use: No Drug use: Never Objective BP 148/88 Pulse 87 Temp 36.9 C (98.4 F) (Tympanic) Resp 18 Wt 121.4 kg (267 lb 9.6 oz) LMP (LMP Unknown) SpO2 99% Physical Exam Vitals reviewed. Constitutional: Appearance: Normal appearance. HENT: Head: Normocephalic and atraumatic. Abdominal: Comments: Patient has erythema and warmth surrounding the umbilicus with tenderness to palpation on the inside of the umbilicus. Fluctuance palpated. No lymphangitic streaking. Skin: General: Skin is warm and dry. Neurological: Mental Status: She is alert. Assessment and Plan ASSESSMENT/PLAN: 1. Cellulitis of skin - ICD9: 682.9, ICD10: L03.90 -Concern for possible intra-abdominal abscess/incarcerated hernia. Patient has systemic symptoms with nausea and vomiting and not able to drink any water today. Also type II diabetic with kidney disease. Recommended further evaluation in the emergency department. Patient went to [facility]. Report given via ER passport. Dion Escobar PA-C documented in this encounter [facility] 04-17-2022 Note HNO ID: [id number] Author: Jessica Mcintosh APRN.[employer] Service: ? Author Type: Nurse Practitioner Type: Progress Notes Filed: 04/17/2022 1:41 PM Note Text: Subjective The history is provided by the patient and a relative. No supervisor drawing was used. HPI Kamala Gray is a 51 year old female who presents today for CC of post nasal drainage for a week. She is also having neck pain. She has used tylenol. She needs liquid medication She is also having neck pain that started a week ago. She is using tylenol. No injury or trauma. Patient states she is under a lot of stress right now, and having anxiety. BP 152/110 Pulse 79 Temp 36.6 ?C (97.8 ?F) Resp 21 Wt 124.9 kg (275 lb 6.4 oz) LMP (LMP Unknown) SpO2 97% Social History Tobacco Use Smoking status: Never Smokeless tobacco: Never Substance Use Topics Alcohol use: No Drug use: Never PAST MEDICAL HISTORY Diagnosis Date Asthma with COPD (HCC) Celiac disease CKD (chronic kidney disease) Diabetes mellitus type 2 (HCC) Gout Hyperlipidemia Hypertension Hypothyroidism Microcytic anemia Obesity, Class III, BMI 40-49.9 (morbid obesity) (HCC) Renal calculi I have confirmed and edited as necessary, the [facility] Review of Systems Constitutional: Negative for chills, fever and malaise/fatigue. HENT: Positive for congestion. Negative for ear pain, sinus pain and sore throat. Respiratory: Negative for cough, sputum production, shortness of breath and wheezing. Cardiovascular: Negative for chest pain. Gastrointestinal: Negative for abdominal pain, diarrhea, nausea and vomiting. Musculoskeletal: Positive for neck pain. Negative for myalgias. Neurological: Negative for headaches. Psychiatric/Behavioral: The patient is nervous/anxious. Objective Physical Exam Vitals and nursing note reviewed. HENT: Head: Normocephalic and atraumatic. Comments: Thick Clear Post Nasal Drainage Right Ear: Tympanic membrane, ear canal and external ear normal. Left Ear: Tympanic membrane, ear canal and external ear normal. Nose: Rhinorrhea present. No mucosal edema or congestion. Right Sinus: No maxillary sinus tenderness or frontal sinus tenderness. Left Sinus: No maxillary sinus tenderness or frontal sinus tenderness. Mouth/Throat: Pharynx: Uvula midline. No oropharyngeal exudate or posterior oropharyngeal erythema. Cardiovascular: Rate and Rhythm: Normal rate and regular rhythm. Heart sounds: Normal heart sounds. Pulmonary: Effort: Pulmonary effort is normal. Breath sounds: Normal breath sounds. Musculoskeletal: Cervical back: Tenderness present. No swelling, edema, deformity, erythema, signs of trauma, lacerations, rigidity, spasms, torticollis, bony tenderness or crepitus. Pain with movement present. Normal range of motion. Thoracic back: Normal. Lumbar back: Normal. Back: Comments: Area of neck pain Lymphadenopathy: Head: Right side of head: No submental, submandibular or tonsillar adenopathy. Left side of head: No submental, submandibular or tonsillar adenopathy. Cervical: No cervical adenopathy. Skin: General: Skin is warm and dry. Neurological: Mental Status: She is alert. Psychiatric: Mood and Affect: Affect normal. ASSESSMENT/PLAN: 1. Post-nasal drainage - ICD9: 473.9, ICD10: R09.82 (primary diagnosis) - Mucinex as ordered - if no improvement follow up with PCP 2. Neck pain - ICD9: 723.1, ICD10: M54.2 Appears to be musculoskeletal - continue tylenol Flexeril for 3 day Follow up with PCP Diagnosis and treatment plan were discussed and questions were answered to the patient's satisfaction. Pt acknowledged understanding of concepts and follow up plan. Specific signs and symptoms that would indicate the need for higher level of care were discussed in detail warranting prompt ER evaluation. Jessica Mcintosh APRN.[facility] 04-17-2022 History of Present illness Narrative Images from the original note were not included. Subjective The history is provided by the patient and a relative. No supervisor drawing was used. HPI Kamala Gray is a 51 year old female who presents today for CC of post nasal drainage for a week. She is also having neck pain. She has used tylenol. She needs liquid medication She is also having neck pain that started a week ago. She is using tylenol. No injury or trauma. Patient states she is under a lot of stress right now, and having anxiety. BP 152/110 Pulse 79 Temp 36.6 C (97.8 F) Resp 21 Wt 124.9 kg (275 lb 6.4 oz) LMP (LMP Unknown) SpO2 97% Social History Tobacco Use Smoking status: Never Smokeless tobacco: Never Substance Use Topics Alcohol use: No Drug use: Never PAST MEDICAL HISTORY Diagnosis Date Asthma with COPD (HCC) Celiac disease CKD (chronic kidney disease) Diabetes mellitus type 2 (HCC) Gout Hyperlipidemia Hypertension Hypothyroidism Microcytic anemia Obesity, Class III, BMI 40-49.9 (morbid obesity) (HCC) Renal calculi I have confirmed and edited as necessary, the [facility] Review of Systems Constitutional: Negative for chills, fever and malaise/fatigue. HENT: Positive for congestion. Negative for ear pain, sinus pain and sore throat. Respiratory: Negative for cough, sputum production, shortness of breath and wheezing. Cardiovascular: Negative for chest pain. Gastrointestinal: Negative for abdominal pain, diarrhea, nausea and vomiting. Musculoskeletal: Positive for neck pain. Negative for myalgias. Neurological: Negative for headaches. Psychiatric/Behavioral: The patient is nervous/anxious. Objective Physical Exam Vitals and nursing note reviewed. HENT: Head: Normocephalic and atraumatic. Comments: Thick Clear Post Nasal Drainage Right Ear: Tympanic membrane, ear canal and external ear normal. Left Ear: Tympanic membrane, ear canal and external ear normal. Nose: Rhinorrhea present. No mucosal edema or congestion. Right Sinus: No maxillary sinus tenderness or frontal sinus tenderness. Left Sinus: No maxillary sinus tenderness or frontal sinus tenderness. Mouth/Throat: Pharynx: Uvula midline. No oropharyngeal exudate or posterior oropharyngeal erythema. Cardiovascular: Rate and Rhythm: Normal rate and regular rhythm. Heart sounds: Normal heart sounds. Pulmonary: Effort: Pulmonary effort is normal. Breath sounds: Normal breath sounds. Musculoskeletal: Cervical back: Tenderness present. No swelling, edema, deformity, erythema, signs of trauma, lacerations, rigidity, spasms, torticollis, bony tenderness or crepitus. Pain with movement present. Normal range of motion. Thoracic back: Normal. Lumbar back: Normal. Back: Comments: Area of neck pain Lymphadenopathy: Head: Right side of head: No submental, submandibular or tonsillar adenopathy. Left side of head: No submental, submandibular or tonsillar adenopathy. Cervical: No cervical adenopathy. Skin: General: Skin is warm and dry. Neurological: Mental Status: She is alert. Psychiatric: Mood and Affect: Affect normal. ASSESSMENT/PLAN: 1. Post-nasal drainage - ICD9: 473.9, ICD10: R09.82 (primary diagnosis) - Mucinex as ordered - if no improvement follow up with PCP 2. Neck pain - ICD9: 723.1, ICD10: M54.2 Appears to be musculoskeletal - continue tylenol Flexeril for 3 day Follow up with PCP Diagnosis and treatment plan were discussed and questions were answered to the patient's satisfaction. Pt acknowledged understanding of concepts and follow up plan. Specific signs and symptoms that would indicate the need for higher level of care were discussed in detail warranting prompt ER evaluation. Jessica Mcintosh APRN.[facility] documented in this encounter [facility] 02-26-2022 Miscellaneous Notes Patient notified.Inez Stoll LPN Negative for flu and covid please notify thank you documented in this encounter [facility] 02-25-2022 Influenza virus A and B RNA and SARS-CoV-2 (COVID-19) N gene panel IZZY+probe (Resp) COVID 19 RESULT: SARS-CoV-2 (Agent of COVID-19) Not Detected by RT-PCR or equivalent method. alexey [id number] (GARCIA)_EUA This test was developed and its performance characteristics determined by [facility]'s [facility] [place]. This test has been authorized by FDA under an Emergency Use Authorization (EUA). This test has been validated in accordance with the FDA's Guidance Document Policy for Diagnostics Testing in Laboratories Certified to Perform High Complexity Testing under CLIA prior to Emergency use Authorization for Coronavirus Disease 2019 during the Public Health Emergency issued on April 28, 2019. Test performed by [facility], [facility] [place], [address] [place] [address]. INFLUENZA A PCR: Negative for Influenza A by RT-PCR INFLUENZA B PCR: Negative for Influenza B by RT-PCR [facility] Diagnosis Middle ear effusion, right- Primary Irritation of external ear canal, right [facility] Diagnosis Viral URI with cough- Primary Acute upper respiratory infections of unspecified site Exacerbation of asthma, unspecified asthma severity, unspecified whether persistent documented in this encounter [facility] note* Diagnosis Post-nasal drainage- Primary Unspecified sinusitis (chronic) Neck pain Cervicalgia documented in this encounter [facility] note* Diagnosis Cellulitis of skin- Primary Cellulitis and abscess of unspecified site documented in this encounter [facility] note* Diagnosis Fall, initial encounter- Primary Unspecified site of sprain and strain documented in this encounter [facility] note* Diagnosis Injury of head, initial encounter- Primary documented in this encounter [facility] note* Diagnosis Headache, unspecified headache type- Primary Nausea Nausea alone documented in this encounter [facility] note* Diagnosis Intertrigo- Primary Other specified erythematous condition Skin sore Unspecified disorder of skin and subcutaneous tissue Bronchitis Bronchitis, not specified as acute or chronic documented in this encounter [facility] note* Diagnosis Acute midline low back pain without sciatica- Primary Fatigue, unspecified type documented in this encounter [facility] note* Diagnosis Headache, unspecified headache type- Primary documented in this encounter [facility] note* Diagnosis Leg cramps- Primary Cramp of limb [facility] Narrative No data available for this section [facility] Discharge instructions No data available for this section [facility] Progress note No data available for this section [facility] Reason for referral (narrative)* Diagnostic Procedure Only (Urgent) - Closed Specialty Diagnoses / Procedures Referred By Jose Miguel t Referred To Contact XR IMAGING Diagnoses Fall, initial encounter Procedures XR RIBS/CHEST 3V AP RIB/OBLS/CXR LEFT RADEX RIBS UNI W/POSTEROANT CH MINIMUM 3 VIEWS Dion Escobar, PAArchana [address] [place] [address] Xr Imaging Referral ID Status Reason Start Date Expiration Date V isits Requested Visits Authorized [id number] Closed Auto-Generate d Referral 07/28/2022 08/27/2023 1 1 * Diagnostic Procedure Only (Urgent) - Closed Specialty Diagnoses / Procedures Referred By Contac t Referred To Contact XR IMAGING Diagnoses Fall, initial encounter Procedures XR LUMBAR GENERAL 3V AP/LAT/L5-S1 RADEX SPINE LUMBOSACRAL 2/3 VIEWS Dion Escobar PA-C [address] [place] [address] Xr Imaging Referral ID Status Reason Start Date Expiration Date V isits Requested Visits Authorized [id number] Closed Auto-Generate d Referral 07/28/2022 08/27/2023 1 1 * Diagnostic Procedure Only (Urgent) - Closed Specialty Diagnoses / Procedures Referred By Contac t Referred To Contact XR IMAGING Diagnoses Fall, initial encounter Procedures XR CERV OTHER 4V AP/LAT/OBL RADEX SPINE CERVICAL 4 OR 5 VIEWS Dion Escobar PA-C [address] [place] [address] Xr Imaging Referral ID Status Reason Start Date Expiration Date V isits Requested Visits Authorized [id number] Closed Auto-Generate d Referral 07/28/2022 08/27/2023 1 1 * Diagnostic Procedure Only (Urgent) - Closed Specialty Diagnoses / Procedures Referred By Contac t Referred To Contact XR IMAGING Diagnoses Fall, initial encounter Procedures XR FOREARM GENERAL 2V AP/LAT LEFT RADEX FOREARM 2 VIEWS Dion Escobar PA-C [address] [place] [address] Xr Imaging Referral ID Status Reason Start Date Expiration Date V isits Requested Visits Authorized [id number] Closed Auto-Generate d Referral 07/28/2022 08/27/2023 1 1 [facility] note* YVAN Michael: PERFORM Event Display: Patient Summary Documents Authored Date: [id number] [facility] Reason for Referral Status Reason Specialty Diagnoses / Procedures Re ferred By Contact Referred To Contact Open Pulmonary Disease Diagnoses Dyspnea, unspecified type Procedures Full PFT Study With Bronchodilator Mariela Vasquez MD [address] [address] Assessments Diagnosis Dyspnea, unspecified type Health Concerns Infection Onset Date Last Indicated Resolved Time COVID-19 Rule-Out 02/25/2022 02/25/2022 02/26/2022 7:35 AM EST Medications Administered Section Inactive Administered Medications - up to 3 most recent administrations Medication Order MAR Action Action Date Dose Rate Site keTORolac 60 mg injection (Toradol) 60 mg, INTRAMUSCULAR, ONCE, 1 dose, On Tue08/17/22 at 1430, Ketorolac (Toradol) is indicated for the short-term (up to 5 days) management of moderately severe acute pain. Continuation of ketorolac (Toradol) beyond 5 days increases the risk of developing serious adverse events. Please verify the duration of therapy for ketorolac (Toradol)., If ordered PRN for pain, patient/guardian may elect to receive this medication for higher pain levels INSTEAD of the opioid, if preferred: Yes Given 08/17/2022 2:17 PM EDT 60 mg Buttocks, Left Inactive Administered Medications - up to 3 most recent administrations Medication Order MAR Action Action Date Dose Rate Site keTORolac 60 mg injection (Toradol) 60 mg, INTRAMUSCULAR, ONCE, 1 dose, On Tue01/17/23 at 1000, Ketorolac (Toradol) is indicated for the short-term (up to 5 days) management of moderately severe acute pain. Continuation of ketorolac (Toradol) beyond 5 days increases the risk of developing serious adverse events. Please verify the duration of therapy for ketorolac (Toradol)., If ordered PRN for pain, patient/guardian may elect to receive this medication for higher pain levels INSTEAD of the opioid, if preferred: Yes Given 01/17/2023 10:06 AM EST 60 mg Buttocks, Right Summary Purpose Family History No Family History Records Found Advance Directives No Advanced Directives Records FoundNo Advanced Directives Records Found Additional Source Comments Care Team (unrecognized sect ion and content) Care Team Personnel Name: ARAM JOHNSON DO Member Role: Primary Care Physician Address: Address: [address] [place] [address]- Name: DEBBIE CHATMAN Position: ED Physician Member Role: ED Physician Address: Address: [facility] [address] [place] [address]- Care Team Related Persons Name: MANOJ NOLASCO Ticket Writer Relationship Specialty Start Date End Date Milan Cervantes Clay [address] [place] [id number] PCP - General 11/10/06 Ticket Writer Relationship Specialty Start Date End Date Ysbael Lutz, LOGGING SHOVEL OPERATOR [address] [facility] [place], [place] [id number] PCP - General Family Medicine 02/25/22 Ticket Writer Relationship Specialty Start Date End Date Ysabel Lutz, LOGGING SHOVEL OPERATOR [address] [facility] [place], [place] [id number] PCP - General Family Medicine 02/25/22 Ticket Writer Relationship Specialty Start Date End Date Ysabel Lutz, LOGGING SHOVEL OPERATOR [address] [facility] [place], [place] [id number] PCP - General Family Medicine 02/25/22 Ticket Writer Relationship Specialty Start Date End Date Ysabel Lutz, LOGGING SHOVEL OPERATOR [address] [facility] [place], [place] [address] PCP - General Family Medicine 02/25/22 Ticket Writer Relationship Specialty Start Date End Date Clifton Sanchez Chi [address] [place], [place] [id number] PCP - General Gerontology 07/28/22 Ticket Writer Relationship Specialty Start Date End Date Clifton Sanchez Chi [address] [place] [address] PCP - General Gerontology 07/28/22 Ticket Writer Relationship Specialty Start Date End Date Clifton Sanchez Chi [address] [place] [address] PCP - General Gerontology 07/28/22 Ticket Writer Relationship Specialty Start Date End Date Aram Johnson DO [address] [place] [address] PCP - General Family Medicine 12/14/22 Ticket Writer Relationship Specialty Start Date End Date Aram Johnson DO [address] [place] [address] PCP - General Family Medicine 12/14/22 Ticket Writer Relationship Specialty Start Date End Date Aram Johnson DO [address] [place] [address] PCP - General Family Medicine 12/14/22 Ticket Writer Relationship Specialty Start Date End Date Aram Johnson DO [address] [place] [address] PCP - General Family Medicine 12/14/22 Ticket Writer Relationship Specialty Start Date End Date Aram Johnson DO [address] [place] [address] PCP - General Family Medicine 12/14/22 Source Comments (unrecognize d section and content) In the event this informatio n is protected by the Federal Confidentiality of Alcohol and Drug Abuse Patient Records regulations: The Federal rules restrict any use of the information to criminally investigate or prosecute any alcohol or drug abuse patient.[facility] Center[facility] the event this information is protected by the Federal Confidentiality of Alcohol and Drug Abuse Patient Records regulations: The Federal rules restrict any use of the information to criminally investigate or prosecute any alcohol or drug abuse patient.[facility] Center[facility] the event this information is protected by the Federal Confidentiality of Alcohol and Drug Abuse Patient Records regulations: The Federal rules restrict any use of the information to criminally investigate or prosecute any alcohol or drug abuse patient.[facility] CenterIn the event this information is protected by the Federal Confidentiality of Alcohol and Drug Abuse Patient Records regulations: The Federal rules restrict any use of the information to criminally investigate or prosecute any alcohol or drug abuse patient.[facility] Center[facility] the event this information is protected by the Federal Confidentiality of Alcohol and Drug Abuse Patient Records regulations: The Federal rules restrict any use of the information to criminally investigate or prosecute any alcohol or drug abuse patient.[facility] Center[facility] the event this information is protected by the Federal Confidentiality of Alcohol and Drug Abuse Patient Records regulations: The Federal rules restrict any use of the information to criminally investigate or prosecute any alcohol or drug abuse patient.[facility] CenterIn the event this information is protected by the Federal Confidentiality of Alcohol and Drug Abuse Patient Records regulations: The Federal rules restrict any use of the information to criminally investigate or prosecute any alcohol or drug abuse patient.[facility] CenterIn the event this information is protected by the Federal Confidentiality of Alcohol and Drug Abuse Patient Records regulations: The Federal rules restrict any use of the information to criminally investigate or prosecute any alcohol or drug abuse patient.[facility] CenterIn the event this information is protected by the Federal Confidentiality of Alcohol and Drug Abuse Patient Records regulations: The Federal rules restrict any use of the information to criminally investigate or prosecute any alcohol or drug abuse patient.[facility] CenterIn the event this information is protected by the Federal Confidentiality of Alcohol and Drug Abuse Patient Records regulations: The Federal rules restrict any use of the information to criminally investigate or prosecute any alcohol or drug abuse patient.[facility] CenterIn the event this information is protected by the Federal Confidentiality of Alcohol and Drug Abuse Patient Records regulations: The Federal rules restrict any use of the information to criminally investigate or prosecute any alcohol or drug abuse patient.[facility] CenterIn the event this information is protected by the Federal Confidentiality of Alcohol and Drug Abuse Patient Records regulations: The Federal rules restrict any use of the information to criminally investigate or prosecute any alcohol or drug abuse patient.[facility] CenterIn the event this information is protected by the Federal Confidentiality of Alcohol and Drug Abuse Patient Records regulations: The Federal rules restrict any use of the information to criminally investigate or prosecute any alcohol or drug abuse patient.[facility] CenterIn the event this information is protected by the Federal Confidentiality of Alcohol and Drug Abuse Patient Records regulations: The Federal rules restrict any use of the information to criminally investigate or prosecute any alcohol or drug abuse patient.[facility] CenterIn the event this information is protected by the Federal Confidentiality of Alcohol and Drug Abuse Patient Records regulations: The Federal rules restrict any use of the information to criminally investigate or prosecute any alcohol or drug abuse patient.[facility] Reason for Visit (unrecogniz ed section and content) Reason Comments Ear Problem Pt reported (RT) ear decreased hearing, x1 mth. Reason Comments Cough Chest congestion, Wilson , x4 days. Reason Comments Results Reason Comments Neck Pain Swelling, phlegm misty inage, anxiety x 2 weeks Reason Comments sore belly button Symptoms started las t night-also nauseated Reason Comments Fall x 2 days, left forea rm, rib and low back pain Reason Comments Nausea Reason Comments Chest Congestion cough, sore throat , rash x couple weeks Reason Comments Low Back Pain midline, bodyaches x 1 week Reason Comments Headache recurring x this am Reason Comments Leg Cramps x last night Care Team (unrecognized sect ion and content) Care Team Personnel Name: YSABEL LUTZ LACE MACHINE OPERATOR - LOGGING SHOVEL OPERATOR Position: P4 Advanced Practice Nurse Med Service: Employed Provider Member Role: Primary Care Physician Address: Address: [address] [facility] [place] [address]- Care Team Related Persons Name: MANOJ NOLASCO INFORMATION SOURCE (unrecogn ized section and content) DATE CREATED AUTHOR AUTHOR'S ORGANIZ ATION 02/27/2023 [facility] rociondation ([place]) FOR RECORDS PERTAINING TO PATIENTS WHO ARE OR HAVE BEEN ENROLLED IN A CHEMICAL DEPENDENCY/SUBSTANCEABUSE PROGRAM, SOME INFORMATION MAY BE OMITTED. This clinical summary was aggregated from multiple sources. Caution should be exercised in using it in the provision of clinical care. This summary normalizes information from multiple sources, and as a consequence, information in this document may materially change the coding, format and clinical context of patient data. In addition, data may be omitted in some cases. CLINICAL DECISIONS SHOULD BE BASED ON THE PRIMARY CLINICAL RECORDS. [facility]. provides no warranty or guarantee of the accuracy or completeness of information in this document.
== END 2023-02-28 09:12 | disposition home or self-care (01) ==
LOC: ED 09:07
PROVIDERS: Emergency Provider Emergency Medicine; PCP Family Medicine; Visit Provider Emergency Medicine
DX: M54.9 Dorsalgia, unspecified (principal); E11.22 Type 2 diabetes mellitus with diabetic chronic kidney disease; G89.29 Other chronic pain; N18.9 Chronic kidney disease, unspecified; G47.33 Obstructive sleep apnea (adult) (pediatric); Z86.711 Personal history of pulmonary embolism
CPT/HCPCS: 99282

== ENCOUNTER 2023-03-01 18:36 | Emergency (ER) | payer MEDICARE, MEDICAID, SELFPAY ==
[2023-03-01 18:36] VITALS: BP 162/105; PULSE 97; RESP 16; TEMP 35.4; O2SAT 100; BMI 49.0
--- NOTE | 2023-03-01 20:09 | EX.ED.GENINJ ---
HPI History of Present Illness Chief Complaint: Fall Informant: patient Narrative Narrative: Presents by private vehicle fall in the bathtub 2 hours prior to arrival. She moved to a new place, she needs to step over the tub it is hide she had suction handles placed by the landlord. It came off she hit her upper arm and her right lower leg. No head injuries. She is able to ambulate. No medications taken prior to arrival. She has a wound to her right leg that got irritated from the fall. [facility]SH [facility] Medical History Abnormal glucose Anemia Anxiety Arthritis Asthma BiPAP (biphasic positive airway pressure) dependence Cardiac murmur Cardiology follow-up encounter Celiac disease Chest pain Chronic kidney disease COPD (chronic obstructive pulmonary disease) Depression Diabetes mellitus Dietary restriction Difficulty swallowing Dyspnea on exertion Fall GERD (gastroesophageal reflux disease) Gout History of chronic back pain History of echocardiogram History of edema History of pain when walking History of stress test Hydronephrosis Hyperlipidemia Hypersomnia Hypertension Hypothyroidism Injury of head and neck Iron deficiency anemia Leg cramps Microcytic anemia Migraine headache Morbid obesity with BMI of 40.0-44.9, adult Non-smoker Noncompliance DAVY treated with BiPAP Post-menopausal Pulmonary embolism Restless leg syndrome Scalp hematoma Shortness of breath on exertion Syncope Thyroid disease UTI (urinary tract infection) Vitamin B12 deficiency Vitamin D deficiency Wears glasses Home Medications citalopram 40 mg tablet 40 mg PO DAILY DEPRESSION/ANXIETY 07/27/19 [History Last Taken 02/10/23] budesonide-formoterol HFA 160 mcg-4.5 mcg/actuation aerosol inhaler (Symbicort) 2 puff inhalation BID COPD 04/02/20 [History Last Taken 02/10/23] rimegepant 75 mg disintegrating tablet (Nurtec ODT) 75 mg PO ONCE PRN MIGRAINES 06/19/20 [History Last Taken 05/04/22] fluticasone fur. 100 mcg-umeclid 62.5 mcg-vilant 25 mcg inhalat.powder (Trelegy Ellipta) 1 ea inhalation DAILY COPD 08/14/20 [History Last Taken 02/10/23] galcanezumab-gnlm 120 mg/mL subcutaneous pen injector (Emgality Pen) 120 mg subcut QMONTH MIGRAINES 08/19/21 [History Last Taken 01/06/23] lorazepam 1 mg tablet 1 mg PO BID PRN ANXIETY 05/04/22 [History Last Taken 02/08/23] progesterone micronized 200 mg capsule 400 mg PO QHS HORMONES 10/11/22 [History Last Taken 02/09/23] tramadol 50 mg tablet 50 mg PO TID PAIN 10/11/22 [History Last Taken 02/10/23] amlodipine 10 mg tablet 10 mg PO DAILY BLOOD PRESSURE #90 tabs 10/28/22 [Rx Last Taken 02/10/23] valsartan 320 mg tablet 160 mg (1/2 x 320 mg) PO BID BLOOD PRESSURE #90 tabs 10/28/22 [Rx Last Taken 02/10/23] albuterol sulfate 90 mcg/actuation breath activated powder inhaler (ProAir RespiClick) 2 inh inhalation 4X/DAY PRN SHORTNESS OF BREATH #1 ea 11/07/22 [Rx Last Taken Unknown] metoclopramide HCl 10 mg tablet (Reglan) 10 mg PO Q6H PRN NAUSEA AND VOMTING #20 tabs 01/07/23 [Rx Last Taken Unknown] atorvastatin 80 mg tablet 80 mg PO DAILY CHOLESTEROL 02/10/23 [History Last Taken 02/10/23] cyclobenzaprine 5 mg tablet 5 mg PO Q8H PRN MUSCLE SPASMS 02/10/23 [History Last Taken 02/08/23] levothyroxine 175 mcg tablet 175 mcg PO DAILY THYROID 02/10/23 [History Last Taken 02/10/23] magnesium oxide 400 mg (241.3 mg magnesium) tablet 400 mg PO DAILY SUPPLEMENT 02/10/23 [History Last Taken 02/09/23] potassium chloride 10 mEq capsule,extended release 10 meq PO DAILY SUPPLEMENT 02/10/23 [History Last Taken 02/10/23] promethazine 25 mg rectal suppository (Promethegan) 25 mg TN Q6H PRN PRN Nausea #12 ea 02/24/23 [Rx Last Taken Unknown] cephalexin 500 mg capsule 500 mg PO BID 03/01/23 [History Last Taken Unknown] gabapentin 100 mg capsule 400 mg PO QHS LEG CRAMPS 03/01/23 [History Last Taken Unknown] Allergy/AdvReac Type Severity Reaction Status Date / Time hydrochlorothiazide AdvReac Intermediate Contributes Verified 03/01/23 09:11 to gout naproxen [From Naprosyn] AdvReac Intermediate Nausea Verified 03/01/23 09:11 aspirin AdvReac Nausea Verified 03/01/23 09:11 Family History Father , Age 72 Hypertension Mother CAD (coronary artery disease) Myocardial infarction, Onset Age: 55 Hypertension Sister CAD (coronary artery disease) Brother Cancer Surgical History History of History of cardiac catheterization History of carpal tunnel surgery of left wrist History of carpal tunnel surgery of right wrist History of left heart catheterization (11/11/20) history of uterine ablation Hx of cystoscopy Social History household members: none housing: apartment Smoking Status: Never smoker alcohol intake: never substance use type: does not use caffeine: No ROS ROS ED Constitutional Constitutional ED: Denies chills, fever(s) or sweats Eyes Eyes: Denies change in vision ENT ENT ED: Denies dysphagia or sore throat Cardiovascular Cardiovascular: Denies chest pain, leg edema, palpitations or racing heartbeat Respiratory/Chest Respiratory/Chest: Denies cough, dyspnea or dyspnea on exertion Gastrointestinal Gastrointestinal: Denies abdominal pain, diarrhea, nausea or vomiting Genitourinary Genitourinary ED: Denies dysuria, hematuria or urinary frequency Musculoskeletal Musculoskeletal: Reports extremity pain; Denies back pain or neck pain Integumentary Denies rash or wounds Neurologic Neurologic: Denies headache(s), paresthesias or weakness EXAM Physical Exam Const Vital Signs: 03/01/23 18:36 03/01/23 20:05 Temperature 95.8 F L Temperature Source Temporal Pulse Rate 97 Respiratory Rate 16 Respiratory Effort Normal Respiratory Depth Normal Respiratory Pattern Normal Blood Pressure 162/105 H Blood Pressure Mean 124 Pulse Ox 100 Oxygen Delivery Method Room Air Room Air Positive well nourished and well developed Constitutional Narrative: GCS 15 General Appearance ED: well developed and NAD HEENT Reports moist mucous membranes normocephalic and atraumatic Eyes PERRL, EOMs intact bilaterally and conjunctivae normal General Eye ED: Yes normal appearance of both eyes Neck no lymphadenopathy and supple General: Negative for tenderness Chest Wall Chest: Negative for tenderness Resp normal respiratory effort and normal air movement Effort and Inspection: symmetric chest movement; Negative for respiratory distress Cardio regular rate, regular rhythm and no murmurs Peripheral Pulses: pulses 2+ throughout GI normal to inspection, nondistended, normoactive bowel sounds and non-tender Palpation: Negative for guarding or rebound tenderness present Back/Spine no CVA tenderness and no thoracic nor lumbar tenderness Extremity Extremity Narrative: Right upper extremity mild tenderness upper mid arm. No deformity. No ecchymosis. No pain in the shoulder or elbow. Left upper extremity: Nontender full range of motion. Lower extremities negative logroll. No deformities. Right gonzalez with quarter size wound with irritation there is no bleeding no drainage no streaking. Mild tender palpation. General Extremety ED: Negative for edema or tenderness General Extremity: Negative for edema Neuro oriented x3, CN's II-XII intact bilaterally and no sensory deficits noted Sensorium / Orientation: awake and alert Skin no rashes or lesions noted and no wounds MDM MDM MDM Narrative Medical decision making narrative: Interventions / MDM: Differential diagnosis: Contusion, abrasion Diagnosis considered but do not suspect: Fracture however x-ray negative My EKG interpretation: N/A Imaging independently reviewed and interpreted by myself: 2 view right humerus: No fracture, 2 views right tib-fib: No fracture. Also read by radiology. External documents reviewed: N/A Test considered but not ordered:N/A ED course: Patient mechanical fall right upper arm right tibia injury. X-rays ordered. Tylenol ordered. X-ray were negative. Abrasions anterior tibia cleansed and dressed by nursing. She is reassured. She is ambulating. She will continue Tylenol. Outpatient follow-up. All questions were answered. Re-evaluation: stable Disposition discussed with patient/family/significant other: Patient Case discussed with consulting clinician: N/A This note was generated with [employer] dictation software. It may contain incorrect words, spelling, and punctuation that were not noted in checking the note before signing. Radiography Diagnostic Testing: Clinical Impression(s) from Imaging Studies Humerus X-Ray 03/01/23 20:15 IMPRESSION: Normal x-ray examination of the humerus. Electronically Signed: Isaac Aviles MD at 20:47 EST Reading Location ID and State: [facility] / [place] Tel , Service support , Tibia/Fibula X-Ray 03/01/23 21:15 IMPRESSION: Normal x-ray examination of the tibia and fibula. Electronically Signed: Isaac Aviles MD at 20:48 EST Reading Location ID and State: [address] [place] [address] Tel , Service support , Discharge Plan Triage Chief Complaint: Fall ED Provider: Gm Martinez Dx/Rx/DC Orders Clinical Impression: Contusion of leg, right, Contusion of arm, right Instructions: Wound Care, Bruises (Contusions) Prescriptions: No Action budesonide-formoterol [Symbicort] 160-4.5 mcg/actuation HFA aerosol inhaler 2 puff INHALATION BID Nurtec ODT 75 mg tablet,disintegrating 75 mg PO ONCE PRN (Reason: MIGRAINES ) Emgality Pen 120 mg/mL pen injector 120 mg subcut QMONTH Patient Comments: PT STATES THEY WERE DUE TO GET THIS A WEEK AGO BUT CANNOT AFFORD TO DO SO AT THIS TIME 9AS OF 02-10-23) Trelegy Ellipta 100-62.5-25 mcg blister with device 1 ea INHALATION DAILY lorazepam 1 mg tablet 1 mg PO BID PRN (Reason: ANXIETY ) tramadol 50 mg tablet 50 mg PO TID progesterone micronized 200 mg capsule 400 mg PO QHS ProAir RespiClick 90 mcg/actuation aerosol powdr breath activated 2 inh INHALATION 4X/DAY PRN (Reason: SHORTNESS OF BREATH ) Qty: 1 0RF cyclobenzaprine 5 mg tablet 5 mg PO Q8H PRN (Reason: MUSCLE SPASMS ) magnesium oxide 400 mg (241.3 mg magnesium) tablet 400 mg PO DAILY potassium chloride 10 mEq capsule, extended release 10 meq PO DAILY levothyroxine 175 mcg tablet 175 mcg PO DAILY atorvastatin 80 mg Tablet 80 mg PO DAILY gabapentin 100 mg capsule 400 mg PO QHS cephalexin 500 mg capsule 500 mg PO BID Patient Comments: TAKE 1 CAPSULE BY MOUTH TWICE DAILY metoclopramide HCl [Reglan] 10 mg tablet 10 mg PO Q6H PRN (Reason: NAUSEA AND VOMTING ) Qty: 20 0RF promethazine [Promethegan] 25 mg suppository 25 mg TN Q6H PRN PRN (Reason: Nausea) Qty: 12 0RF citalopram 40 mg tablet 40 mg PO DAILY amlodipine 10 mg tablet 10 mg PO DAILY Qty: 90 3RF valsartan 320 mg tablet 160 mg PO BID Qty: 90 3RF Primary Care Provider: Halina Johnson Referrals: Halina Johnson, [Primary Care Provider] - 1 Week Activity Restrictions/Additional Instructions: X-ray right humerus and right lower leg negative. Daily wound care. Use Tylenol up to 1 g every 6 hours as needed. Follow-up with your doctor. Disposition Disposition: Home, Self Care Discharge Date/Time: 03/01/23 21:50
[2023-03-01] MEDS: Acetaminophen 500 MG Tablet 1000 MG PO (20:12)
--- NOTE | 2023-03-01 20:15 | RAD_ITS ---
STUDY: X-RAY - RIGHT HUMERUS REASON FOR EXAM: Female, 52 years old. injury TECHNIQUE: 3 view(s) of the humerus. COMPARISON: None. FINDINGS: Normal visualized humerus. There is no demonstrated fracture or osseous destructive process. There is no demonstrated soft tissue abnormality. RAD/Humerus min 2 Views IMPRESSION: Normal x-ray examination of the humerus. Electronically Signed: Isaac Aviles MD at 20:47 EST ,
--- OUTSIDE RECORDS SUMMARY | 2023-03-01 20:20 | XMS RPT_ITS | CCD ---
Author Name Unknown Address [address] [place] [address] Organization [facility] Care Team Providers Care Electorate Officer Name Role Phone Ysabel Lutz Primary Care Provider KAREN OBRIEN - YSABEL MOREL Primary Care Phys ician Milan Cervantes Primary Care Provider Ysabel Lutz CNP Primary Care Provider Clifton Bhat Chi Primary Care Provider [phone] DR LUZ ELENA BHAT MD Primary Care Physician PHYSICIAN, NONE Primary Care Physician Unavailab le Unavailable Primary Care Provider Unavailabl e Aram Johnson DO Primary Care Provider PHYSICIAN, NOT RECORDED Primary Care Physician U navailable Aram Johnson DO Primary Care Provider [facility], [facility] Primary Care Unavailable YSABEL LUTZ Primary Care Unavailable YSABEL LUTZ Primary Care Unavailable WHITLEY MILLER Referring Unavailable HOME, [facility] Primary Care Unavailable ARAM JOHNSON Primary Care Unavailable WHITLEY MILLER Referring Unavailable ARAM JOHNSON Primary Care Unavailable [...] Unavailable ARAM JOHNSON DO Primary Care Physician DYLAN GONZALEZ, LAURA Mehta Attending Unavail able ALEX DO, ARAM Primary Care Unavailable FABIAN MOLINA DO Attending Unavailable PHYSICIAN, NOT RECORDED Primary Care Unavaila ble ALEX DO, ARAM Primary Care Unavailable ALEX TEMPLETON MD Attending Unavailable ALEX DO, ARAM Primary Care Unavailable OWOC DO, DR DEBBIE Zelaya Attending Unavailtamy JENKINS MD, DR COTTER Attending Unavailabl e ALEX DO, ARAM Primary Care Unavailable ALEX DO, ARAM Primary Care Unavailable PAU GONZALEZ, DR DAQUAN Crook Attending Unavailabl e ALEX DO, ARAM Primary Care Unavailable JACQUELINE MORALEZ, AUDRA Attending Unavailable DON MORALEZ, DR OMEGA Liu Attending Unavailable HOME GONZALEZ, DR LAGUNA Primary Care Unavailable KAREN TOLL GATE TENDER - ADULT CARE PROVIDER, YSABEL Lucas Primary Care U nell LUTZ APRN - ADULT CARE PROVIDER, YSABEL Lucas Attending U SHEELA Gomez MD Attending Unavailable PHYSICIAN, NOT RECORDED Primary Care Unavaila kylie GARRIDO MD, SHEELA Liu Attending Unavailable PHYSICIAN, NONE Primary Care Unavailable DON MORALEZ, DR OMEGA Liu Attending Unavailable HOME GONZALEZ, DR LAGUNA Primary Care Unavailable HOME GONZALEZ, DR LAGUNA Primary Care Unavailable RANDOLPH GONZALEZ, DR INA Liu Attending Unavailable Allergies Allergy Classification Reported Allergen(s) Allergy Type Date of Onset Reaction(s) Facility (1 source) Aluminum aspirin Drug Allergy 04-23-2020 Nausea Only [facility] Work Phone: (15 sources) hydroCHLOROthiaz rosa maria; Translations: [HYDROCHLOROTHIA ZIDE] Drug Allergy 09-28-2019 Unknown [facility] Work Phone: (20 sources) Naproxen; Translations: [naproxen] Drug Allergy 11-05-2018 Vomiting [facility] Work Phone: (13 sources) Aspirin; Translations: [aspirin] Drug Allergy NAUSEA [facility] (16 sources) Salicylate product; Translations: [SALICYLATES] Propensity to adverse reactions 12-21-2007 [facility] Work Phone: Medications Current Medications Medication Drug Class(es) Dates Sig (Normalized) Sig (Original) acetaminophen 325 mg oral capsule (20 sources) Start: 02-28-2023 End: 03-10-2023 acetaminophen 325 mg oral capsule Dose : 650 mg = 2 cap(s), Oral, q4h, PRN for pain, X 10 day(s), # 40 cap(s), 0 Refill(s), 03/10/23 12:49:00 PM EST Start Date: 02/28/23 Stop Date: 03/10/23 Status: Ordered Completed/Discontinued Medications Medication Drug Class(es) Dates Sig (Normalized) Sig (Original) acetaminophen 325 mg / HYDROcodone bitartrate 5 mg oral tablet (4 sources) Opioid Agonist Start: 02-17-2023 End: 02-20-2023 take 1 tablet by mouth every six hours as needed for pain [place] 325- 5 mg oral tablet Dose = 1 tab(s), Oral, q6h, PRN for pain, # 10 tab(s), 0 Refill(s), Headache, 129.4 Start Date: 02/17/23 Stop Date: 02/20/23 Status: Ordered amLODIPine 10 mg oral tablet (14 sources) Dihydropyridine Calcium Channel Shad Start: 05-20-2022 End: 07-19-2022 amLODIPine 10 mg oral tablet Dose : 10 mg = 1 tab(s), Oral, qDay, # 30 tab(s), 1 Refill(s), Pharmacy: [id number], 162, cm, 05/20/22 15:06:00 EDT, Height, kg, 05/20/22 15:06:00 EDT, Dosing Weight Start Date: 05/20/22 Stop Date: 07/19/22 Status: Ordered Problems Active Problems Problem Classification Problem Date Documented Date Episodic/Chronic Abdominal pain (1 source) Abdominal pain; Translations: [Unspecified abdominal pain] Onset: 3 Episodic Anxiety disorders (14 sources) Mixed anxiety and depressive disorder; Translations: [Panic disorder without agoraphobia] Onset: 3 11-25-2018 Chronic Asthma (14 sources) Asthma; Translations: [Exacerbation of asthma] 03-17-2020 Chronic Biliary tract disease (13 sources) Biliary calculus 04-21-2021 Episodic Chronic obstructive pulmonary disease and bronchiectasis (1 source) Bronchitis; Translations: [Bronchitis, not specified as acute or chronic] 11-16-2022 Episodic Conditions associated with dizziness or vertigo (12 sources) Dizziness and giddiness; Translations: [Dizziness and giddiness] Onset: 3 09-23-2021 Episodic Deficiency and other anemia (13 sources) Iron deficiency anemia 07-17-2019 Episodic Deficiency and other anemia (10 sources) Macrocytic anemia 02-16-2022 Episodic Diabetes mellitus without complication (13 sources) Type 2 diabetes mellitus 01-28-2020 Chronic Disorders of lipid metabolism (13 sources) Hypercholesterolemia 05-09-2020 Chronic Esophageal disorders (13 sources) Gastroesophageal reflux disease 01-28-2020 Chronic Essential hypertension (13 sources) Hypertensive disorder 12-25-2018 Chronic Fluid and electrolyte disorders (1 source) Hypokalemia; Translations: [Hypokalemia] Onset: 2 Episodic Fracture of lower limb (1 source) Unspecified fracture of shaft of unspecified fibula, initial encounter for closed fracture; Translations: [Unspecified fracture of shaft of unspecified fibula, initial encounter for closed fracture] Onset: 3 Episodic Gout and other crystal arthropathies (13 sources) Gout 01-02-2019 Chronic Past or Other [...] Time Vital Sign Value Performing Clinician Facility 02-28-2023 12:11-0500 Body temperature 98.78 [degF] LAURA RICHARDSON MD [facility] 02-28-2023 12:11-0500 Diastolic Blood Pressure Non-Invasive 89 mm[Hg] LAURA RICHARDSON MD [facility] 02-28-2023 12:11-0500 Heart rate 101 /min LAURA RICHARDSON MD [facility] 02-28-2023 12:11-0500 Respiratory rate 22 /min LAURA RICHARDSON MD [facility] 02-28-2023 12:11-0500 Systolic Blood Pressure Non-Invasive 145 mm[Hg] LAURA RICHARDSON MD [facility] 02-27-2023 07:15-0500 Diastolic Blood Pressure Non-Invasive 87 mm[Hg] ALEX TEMPLETON MD [facility] 02-27-2023 07:15-0500 Heart rate 102 /min ALEX TEMPLETON MD [facility] 02-27-2023 07:15-0500 Respiratory rate 18 /min ALEX TEMPLETON MD [facility] 02-27-2023 07:15-0500 Systolic Blood Pressure Non-Invasive 129 mm[Hg] ALEX TEMPLETON MD [facility] 02-27-2023 06:20-0500 Body temperature 97.88 [degF] ALEX TEMPLETON MD [facility] 02-27-2023 06:20-0500 Diastolic Blood Pressure Non-Invasive 107 mm[Hg] ALEX TEMPLETON MD [facility] 02-27-2023 06:20-0500 Heart rate 103 /min ALEX TEMPLETON MD [facility] 02-27-2023 06:20-0500 Respiratory rate 14 /min ALEX TEMPLETON MD [facility] 02-27-2023 06:20-0500 Systolic Blood Pressure Non-Invasive 146 mm[Hg] ALEX TEMPLETON MD [facility] 02-24-2023 17:16-0500 Diastolic Blood Pressure Non-Invasive 95 mm[Hg] DR DEBBIE CHATMAN DO [facility] 02-24-2023 17:16-0500 Heart rate 94 /min DR DEBBIE CHATMAN DO [facility] 02-24-2023 17:16-0500 Respiratory rate 22 /min DR DEBBIE CHATMAN DO [facility] 02-24-2023 17:16-0500 Systolic Blood Pressure Non-Invasive 170 mm[Hg] DR DEBBIE CHATMAN DO [facility] 02-24-2023 16:35-0500 Body height 162.[address] DEBBIE CHATMAN DO [facility] 02-24-2023 16:35-0500 Body temperature 98.06 [degF] DR DEBBIE CHATMAN DO [facility] 02-24-2023 16:35-0500 Body weight [address] DEBBIE CHATMAN DO [facility] 02-24-2023 16:35-0500 Diastolic Blood Pressure Non-Invasive 114 mm[Hg] DR DEBBIE CHATMAN DO [facility] 02-24-2023 16:35-0500 Heart rate 102 /min DR DEBBIE CHATMAN DO [facility] 02-24-2023 16:35-0500 Respiratory rate 20 /min DR DEBBIE CHATMAN DO [facility] 02-24-2023 16:35-0500 Systolic Blood Pressure Non-Invasive 156 mm[Hg] DR DEBBIE CHATMAN DO [facility] 02-17-2023 09:39-0500 Diastolic Blood Pressure Non-Invasive 101 mm[Hg] DR DAQUAN MAI MD [facility] 02-17-2023 09:39-0500 Heart rate 94 /min DR DAQUAN MAI MD [facility] 02-17-2023 09:39-0500 Mean blood pressure 116 mm[Hg] DR DAQUAN MAI MD [facility] 02-17-2023 09:39-0500 Reason For Taking VItal Signs DR DAQUAN MAI MD [facility] 02-17-2023 09:39-0500 Respiratory rate 16 /min DR DAQUAN MAI MD [facility] 02-17-2023 09:39-0500 Systolic Blood Pressure Non-Invasive 158 mm[Hg] DR DAQUAN MAI MD [facility] 02-17-2023 07:34-0500 Body temperature 98.42 [degF] DR DAQUAN MAI MD [facility] 02-17-2023 07:34-0500 Diastolic Blood Pressure Non-Invasive 105 mm[Hg] DR DAQUAN MAI MD [facility] 02-17-2023 07:34-0500 Heart rate 88 /min DR DAQUAN MAI MD [facility] 02-17-2023 07:34-0500 Respiratory rate 16 /min DR DAQUAN MAI MD [facility] 02-17-2023 07:34-0500 Systolic Blood Pressure Non-Invasive 163 mm[Hg] DR DAQUAN MAI MD [facility] 01-23-2023 12:24-0500 Blood Pressure Location AUDRA REICHFIELD DO [facility] 01-23-2023 12:24-0500 Diastolic Blood Pressure Non-Invasive 76 mm[Hg] AUDRA REICHFIELD DO [facility] 01-23-2023 12:24-0500 Heart rate 81 /min AUDRA REICHFIELD DO [facility] 01-23-2023 12:24-0500 Reason For Taking VItal Signs AUDRA REICHFIELD DO [facility] 01-23-2023 12:24-0500 Respiratory rate 16 /min AUDRA REICHFIELD DO [facility] 01-23-2023 12:24-0500 Systolic Blood Pressure Non-Invasive 120 mm[Hg] AUDRA REICHFIELD DO [facility] 01-23-2023 09:16-0500 Blood Pressure Location AUDRA REICHFIELD DO [facility] 01-23-2023 09:16-0500 Body temperature 98.6 [degF] AUDRA REICHFIELD DO [facility] 01-23-2023 09:16-0500 Diastolic Blood Pressure Non-Invasive 86 mm[Hg] AUDRA REICHFIELD DO [facility] 01-23-2023 09:16-0500 Heart rate 84 /min AUDRA REICHFIELD DO [facility] 01-23-2023 09:16-0500 Respiratory rate 16 /min AUDRA REICHFIELD DO [facility] 01-23-2023 09:16-0500 Systolic Blood Pressure Non-Invasive 134 mm[Hg] AUDRA PHILLIPS DO [facility] 01-18-2023 07:37-0500 Body temperature 96.8 [degF] Satnam Rodriguez TOLL GATE TENDER.ADULT CARE PROVIDER Work Phone: [facility] 01-18-2023 07:37-0500 Body weight 130.18 kg Satnamshira Rodriguez TOLL GATE TENDER.ADULT CARE PROVIDER Work Phone: [facility] 01-18-2023 07:37-0500 Diastolic blood pressure 80 mm[Hg] Satnam Rodriguez TOLL GATE TENDER.ADULT CARE PROVIDER Work Phone: [facility] 01-18-2023 07:37-0500 Heart rate 94 /min Satnam Rodriguez TOLL GATE TENDER.ADULT CARE PROVIDER Work Phone: [facility] 01-18-2023 07:37-0500 Respiratory rate 16 /min Satnam Rodriguez TOLL GATE TENDER.ADULT CARE PROVIDER Work Phone: [facility] 01-18-2023 07:37-0500 SaO2% (BldA) [Mass fraction] 96 % Satnam Rodriguez TOLL GATE TENDER.ADULT CARE PROVIDER Work Phone: [facility] 01-18-2023 07:37-0500 Systolic blood pressure 132 mm[Hg] Satnam Rodriguez TOLL GATE TENDER.ADULT CARE PROVIDER Work Phone: [facility] 01-17-2023 09:47-0500 Body temperature 96.91 [degF] Whitley Lancasterler-Mohan TOLL GATE TENDER.ADULT CARE PROVIDER Work Phone: [facility] 01-17-2023 09:47-0500 Body weight 129.28 kg Whitley Prashayyler-Mohan TOLL GATE TENDER.ADULT CARE PROVIDER Work Phone: [facility] 01-17-2023 09:47-0500 Diastolic blood pressure 88 mm[Hg] Whitley Praisler-Wood TOLL GATE TENDER.ADULT CARE PROVIDER Work Phone: [facility] 01-17-2023 09:47-0500 Heart rate 82 /min Whitley Prashayyler-Wood TOLL GATE TENDER.ADULT CARE PROVIDER Work Phone: [facility] 01-17-2023 09:47-0500 Respiratory rate 18 /min Whitley Prashayyler-Wood TOLL GATE TENDER.ADULT CARE PROVIDER Work Phone: [facility] 01-17-2023 09:47-0500 SaO2% (BldA) [Mass fraction] 96 % Whitley Praisler-Wood TOLL GATE TENDER.ADULT CARE PROVIDER Work Phone: [facility] 01-17-2023 09:47-0500 Systolic blood pressure 142 mm[Hg] Whitley Praisler-Wood TOLL GATE TENDER.ADULT CARE PROVIDER Work Phone: [facility] 01-10-2023 11:49-0500 Diastolic Blood Pressure Non-Invasive 81 1 SHEELA GARRIDO MD [facility] 01-10-2023 11:49-0500 Heart rate 68 /min SHEELA GARRIDO MD [facility] 01-10-2023 11:49-0500 Respiratory rate 20 /min SHEELA GARRIDO MD [facility] 01-10-2023 11:49-0500 Systolic Blood Pressure Non-Invasive 153 1 SHEELA GARRIDO MD [facility] 01-10-2023 10:16-0500 Diastolic Blood Pressure Non-Invasive 94 1 SHEELA GARRIDO MD [facility] 01-10-2023 10:16-0500 Heart rate 66 /min SHEELA GARRIDO MD [facility] 01-10-2023 10:16-0500 Respiratory rate 17 /min SHEELA GARRIDO MD [facility] 01-10-2023 10:16-0500 Systolic Blood Pressure Non-Invasive 152 1 SHEELA GARRIDO MD [facility] 01-10-2023 09:06-0500 Body temperature 97.52 [degF] SHEELA GARRIDO MD [facility] 01-10-2023 09:06-0500 Diastolic Blood Pressure Non-Invasive 97 1 SHEELA GARRIDO MD [facility] 01-10-2023 09:06-0500 Heart rate 72 /min SHEELA GARRIDO MD [facility] 01-10-2023 09:06-0500 Systolic Blood Pressure Non-Invasive 139 1 SHEELA GARRIDO MD [facility] 01-10-2023 08:35-0500 Blood Pressure Location SHEELA GARRIDO MD [facility] 01-10-2023 08:35-0500 Blood Pressure Method SHEELA GARRIDO MD [facility] 01-10-2023 08:35-0500 Body height 162.6 cm SHEELA GARRIDO MD [facility] 01-10-2023 08:35-0500 Body weight 129.4 kg SHEELA GARRIDO MD [facility] 01-10-2023 08:35-0500 Heart rate 98 /min SHEELA GARRIDO MD [facility] 01-10-2023 08:35-0500 Respiratory rate 20 /min SHEELA GARRIDO MD [facility] 12-25-2022 01:29-0400 Diastolic Blood Pressure Non-Invasive 79 1 FABIANBALWINDER RODRIGUEZKA DO [facility] 12-25-2022 01:29-0400 Heart rate 75 /min FABIAN NADIYAESKA DO [facility] 12-25-2022 01:29-0400 Respiratory rate 16 /min FABIAN JENNIFERKA DO [facility] 12-25-2022 01:29-0400 Systolic Blood Pressure Non-Invasive 119 1 FABIAN DURESKA DO [facility] 12-25-2022 00:30-0400 Diastolic Blood Pressure Non-Invasive 75 1 FABIAN DURESKA DO [facility] 12-25-2022 00:30-0400 Heart rate 75 /min FABIAN DURESKA DO [facility] 12-25-2022 00:30-0400 Respiratory rate 16 /min FABIAN DURESKA DO [facility] 12-25-2022 00:30-0400 Systolic Blood Pressure Non-Invasive 135 1 FABIAN DURESKA DO [facility] 12-24-2022 22:30-0400 Diastolic Blood Pressure Non-Invasive 80 1 FABIAN DURESKA DO [facility] 12-24-2022 22:30-0400 Heart rate 72 /min FABIAN DURESKA DO [facility] 12-24-2022 22:30-0400 Reason For Taking VItal Signs FABIAN DURESKA DO [facility] 12-24-2022 22:30-0400 Respiratory rate 16 /min FABIAN DURESKA DO [facility] 12-24-2022 22:30-0400 Systolic Blood Pressure Non-Invasive 123 1 FABIAN DURESKA DO [facility] 12-24-2022 19:56-0400 Reason For Taking VItal Signs FABIAN DURESKA DO [facility] 12-24-2022 18:06-0400 Body height 162.6 cm FABIAN DURESKA DO [facility] 12-24-2022 18:06-0400 Body temperature 97.88 [degF] FABIAN MOLINA DO [facility] 12-24-2022 18:06-0400 Body weight 127.3 kg FABIAN MOLINA DO [facility] 12-24-2022 18:06-0400 Heart rate 83 /min FABIAN MOLINA DO [facility] 12-14-2022 10:52-0400 Body temperature 97.7 [degF] Whitley Praisler-Wood TOLL GATE TENDER.ADULT CARE PROVIDER Work Phone: [facility] 12-14-2022 10:52-0400 Body weight 130.18 kg Whitley Praisler-Wood TOLL GATE TENDER.ADULT CARE PROVIDER Work Phone: [facility] 12-14-2022 10:52-0400 Diastolic blood pressure 80 mm[Hg] Whitley Praisler-Wood TOLL GATE TENDER.ADULT CARE PROVIDER Work Phone: [facility] 12-14-2022 10:52-0400 Heart rate 78 /min Whitley Praisler-Wood TOLL GATE TENDER.ADULT CARE PROVIDER Work Phone: [facility] 12-14-2022 10:52-0400 Respiratory rate 16 /min Whitley Praisler-Wood TOLL GATE TENDER.ADULT CARE PROVIDER Work Phone: [facility] 12-14-2022 10:52-0400 SaO2% (BldA) [Mass fraction] 97 % Whitley Praisler-Wood TOLL GATE TENDER.ADULT CARE PROVIDER Work Phone: [facility] 12-14-2022 10:52-0400 Systolic blood pressure 128 mm[Hg] Whitley Praisler-Wood TOLL GATE TENDER.ADULT CARE PROVIDER Work Phone: [facility] 11-16-2022 10:58-0400 Body temperature 97.7 [degF] Dion Athy PA-C Work Phone: [facility] 11-16-2022 10:58-0400 Body weight 126.1 kg Dion Athy PA-C Work Phone: [facility] 11-16-2022 10:58-0400 Diastolic blood pressure 82 mm[Hg] Dion Athy PA-C Work Phone: [facility] 11-16-2022 10:58-0400 Heart rate 102 /min Dion Athy PA-C Work Phone: [facility] 11-16-2022 10:58-0400 Respiratory rate 18 /min Dion Athy PA-C Work Phone: [facility] 11-16-2022 10:58-0400 SaO2% (BldA) [Mass fraction] 98 % Dion Athy PA-C Work Phone: [facility] 11-16-2022 10:58-0400 Systolic blood pressure 138 mm[Hg] Dion Athy PA-C Work Phone: [facility] 10-03-2022 15:59-0400 Body temperature 98.42 [degF] SHEELA GARRIDO MD [facility] 10-03-2022 15:59-0400 Diastolic Blood Pressure Non-Invasive 88 1 SHEELA GARRIDO MD [facility] 10-03-2022 15:59-0400 Heart rate 96 /min SHEELA GARRIDO MD [facility] 10-03-2022 15:59-0400 Respiratory rate 18 /min SHEELA GARRIDO MD [facility] 10-03-2022 15:59-0400 Systolic Blood Pressure Non-Invasive 124 1 SHEELA GARRIDO MD [facility] 10-03-2022 13:36-0400 Blood Pressure Cuff Size SHEELA GARRIDO MD [facility] 10-03-2022 13:36-0400 Blood Pressure Location SHEELA GARRIDO MD [facility] 10-03-2022 13:36-0400 Blood Pressure Method SHEELA GARRIDO MD [facility] 10-03-2022 13:36-0400 Body temperature 98.6 [degF] SHEELA GARRIDO MD [facility] 10-03-2022 13:36-0400 Diastolic Blood Pressure Non-Invasive 85 1 SHEELA GARRIDO MD [facility] 10-03-2022 13:36-0400 Heart rate 104 /min SHEELA GARRIDO MD [facility] 10-03-2022 13:36-0400 Respiratory rate 20 /min SHEELA GARRIDO MD [facility] 10-03-2022 13:36-0400 Systolic Blood Pressure Non-Invasive 128 1 SHEELA GARRIDO MD [facility] 09-22-2022 23:41-0400 Body temperature 98.24 [degF] DR OMEGA OCHOA DO [facility] 09-22-2022 23:41-0400 Diastolic Blood Pressure Non-Invasive [address] OMEGA OCHOA DO [facility] 09-22-2022 23:41-0400 Heart rate 100 /min DR OMEGA OCHOA DO [facility] 09-22-2022 23:41-0400 Respiratory rate 20 /min DR OMEGA OCHOA DO [facility] 09-22-2022 23:41-0400 Systolic Blood Pressure Non-Invasive [address] OMEGA OCHOA DO [facility] 08-17-2022 14:34-0400 Diastolic blood pressure 94 mm[Hg] Whitley Praisler-Wood TOLL GATE TENDER.ADULT CARE PROVIDER Work Phone: [facility] 08-17-2022 14:34-0400 Heart rate 83 /min Whitley Praisler-Wood TOLL GATE TENDER.ADULT CARE PROVIDER Work Phone: [facility] 08-17-2022 14:34-0400 SaO2% (BldA) [Mass fraction] 98 % Whitley Praisler-Wood TOLL GATE TENDER.ADULT CARE PROVIDER Work Phone: [facility] 08-17-2022 14:34-0400 Systolic blood pressure 182 mm[Hg] Whitley Praisler-Wood TOLL GATE TENDER.ADULT CARE PROVIDER Work Phone: [facility] 08-17-2022 13:36-0400 Body temperature 98.2 [degF] Whitley Praisler-Wood TOLL GATE TENDER.ADULT CARE PROVIDER Work Phone: [facility] 08-17-2022 13:36-0400 Body weight 114.31 kg Whitley Praisler-Wood TOLL GATE TENDER.ADULT CARE PROVIDER Work Phone: [facility] 08-17-2022 13:36-0400 Respiratory rate 16 /min Whitley Praisler-Wood TOLL GATE TENDER.ADULT CARE PROVIDER Work Phone: [facility] 08-13-2022 22:09-0400 Diastolic Blood Pressure Non-Invasive [address] INA DICKSON MD [facility] 08-13-2022 22:09-0400 Heart rate 85 /min DR INA DICKSON MD [facility] 08-13-2022 22:09-0400 Respiratory rate 20 /min DR INA DICKSON MD [facility] 08-13-2022 22:09-0400 Systolic Blood Pressure Non-Invasive [address] INA DICKSON MD [facility] 08-13-2022 20:59-0400 Body temperature 98.06 [degF] DR INA DICKSON MD [facility] 08-13-2022 20:59-0400 Diastolic Blood Pressure Non-Invasive [address] INA DICKSON MD [facility] 08-13-2022 20:59-0400 Heart rate 80 /min DR INA DICKSON MD [facility] 08-13-2022 20:59-0400 Respiratory rate 18 /min DR INA DICKSON MD [facility] 08-13-2022 20:59-0400 Systolic Blood Pressure Non-Invasive [address] INA DICKSON MD [facility] 07-28-2022 09:55-0400 Body temperature 98.01 [degF] Dion Athy PA-C Work Phone: [facility] 07-28-2022 09:55-0400 Body weight 122.47 kg Dion Athy PA-C Work Phone: [facility] 07-28-2022 09:55-0400 Diastolic blood pressure 80 mm[Hg] Dion Athy PA-C Work Phone: [facility] 07-28-2022 09:55-0400 Heart rate 62 /min Dion Athy PA-C Work Phone: [facility] 07-28-2022 09:55-0400 Respiratory rate 18 /min Dion Athy PA-C Work Phone: [facility] 07-28-2022 09:55-0400 SaO2% (BldA) [Mass fraction] 98 % Dion Athy PA-C Work Phone: [facility] 07-28-2022 09:55-0400 Systolic blood pressure 122 mm[Hg] Dion Athy PA-C Work Phone: [facility] 05-04-2022 14:35-0500 Body temperature 98.4 [degF] Dion Athy PA-C Work Phone: [facility] 05-04-2022 14:35-0500 Body weight 121.38 kg Dion Athy PA-C Work Phone: [facility] 05-04-2022 14:35-0500 Diastolic blood pressure 88 mm[Hg] Dion Athy PA-C Work Phone: [facility] 05-04-2022 14:35-0500 Heart rate 87 /min Dion Athy PA-C Work Phone: [facility] 05-04-2022 14:35-0500 Respiratory rate 18 /min Dion Athy PA-C Work Phone: [facility] 05-04-2022 14:35-0500 SaO2% (BldA) [Mass fraction] 99 % Dion Athy PA-C Work Phone: [facility] 05-04-2022 14:35-0500 Systolic blood pressure 148 mm[Hg] Dion Athy PA-C Work Phone: [facility] 04-17-2022 13:18-0500 Body temperature 97.81 [degF] Jessica Dayna TOLL GATE TENDER.ADULT CARE PROVIDER Work Phone: [facility] 04-17-2022 13:18-0500 Body weight 124.92 kg Jessica Dayna TOLL GATE TENDER.ADULT CARE PROVIDER Work Phone: [facility] 04-17-2022 13:18-0500 Diastolic blood pressure 110 mm[Hg] Jessica Dayna TOLL GATE TENDER.ADULT CARE PROVIDER Work Phone: [facility] 04-17-2022 13:18-0500 Heart rate 79 /min Jessica Dayna TOLL GATE TENDER.ADULT CARE PROVIDER Work Phone: [facility] 04-17-2022 13:18-0500 Respiratory rate 21 /min Jessica Dayna TOLL GATE TENDER.ADULT CARE PROVIDER Work Phone: [facility] 04-17-2022 13:18-0500 SaO2% (BldA) [Mass fraction] 97 % Jessica Dayna TOLL GATE TENDER.ADULT CARE PROVIDER Work Phone: [facility] 04-17-2022 13:18-0500 Systolic blood pressure 152 mm[Hg] Jessica Mcintosh TOLL GATE TENDER.ADULT CARE PROVIDER Work Phone: [facility] 02-25-2022 15:16-0500 Body temperature 98.71 [degF] Ria Older TOLL GATE TENDER.ADULT CARE PROVIDER Work Phone: [facility] 02-25-2022 15:16-0500 Body weight 124.1 kg Ria Older TOLL GATE TENDER.ADULT CARE PROVIDER Work Phone: [facility] 02-25-2022 15:16-0500 Diastolic blood pressure 80 mm[Hg] Ria Older TOLL GATE TENDER.ADULT CARE PROVIDER Work Phone: [facility] 02-25-2022 15:16-0500 Heart rate 82 /min Ria Older TOLL GATE TENDER.ADULT CARE PROVIDER Work Phone: [facility] 02-25-2022 15:16-0500 Respiratory rate 16 /min Ria Older TOLL GATE TENDER.ADULT CARE PROVIDER Work Phone: [facility] 02-25-2022 15:16-0500 SaO2% (BldA) [Mass fraction] 99 % Ria Older TOLL GATE TENDER.ADULT CARE PROVIDER Work Phone: [facility] 02-25-2022 15:16-0500 Systolic blood pressure 138 mm[Hg] Ria Older TOLL GATE TENDER.ADULT CARE PROVIDER Work Phone: [facility] 12-20-2021 16:49-0400 Diastolic blood pressure 88 mm[Hg] DR VAHE JENKINS MD [facility] 12-20-2021 16:49-0400 Heart rate 80 /min DR VAHE JENKINS MD [facility] 12-20-2021 16:49-0400 Respiratory rate 18 /min DR VAHE JENKINS MD [facility] 12-20-2021 16:49-0400 Systolic blood pressure 174 mm[Hg] DR VAHE JENKINS MD [facility] 12-20-2021 15:50-0400 Body temperature 97.7 [degF] DR VAHE JENKINS MD [facility] 12-20-2021 15:50-0400 Heart rate 76 /min DR VAHE JENKINS MD [facility] 12-20-2021 15:50-0400 Respiratory rate 18 /min DR VAHE JENKINS MD [facility] 12-20-2021 13:53-0400 Body temperature 99.68 [degF] DR VAHE JENKINS MD [facility] 12-20-2021 13:53-0400 Diastolic blood pressure 100 mm[Hg] DR VAHE JENKINS MD [facility] 12-20-2021 13:53-0400 Heart rate 78 /min DR VAHE JENKINS MD [facility] 12-20-2021 13:53-0400 Respiratory rate 18 /min DR VAHE JENKINS MD [facility] 12-20-2021 13:53-0400 Systolic blood pressure 160 mm[Hg] DR VAHE JENKINS MD [facility] 11-13-2021 11:51-0400 Body temperature 97.39 [degF] Dion Athy PA-C Work Phone: [facility] 11-13-2021 11:51-0400 Body weight 129.18 kg Dion Athy PA-C Work Phone: [facility] 11-13-2021 11:51-0400 Diastolic blood pressure 72 mm[Hg] Dion Athy PA-C Work Phone: [facility] 11-13-2021 11:51-0400 Heart rate 78 /min Dion Athy PA-C Work Phone: [facility] 11-13-2021 11:51-0400 Respiratory rate 16 /min Dion Athy PA-C Work Phone: [facility] 11-13-2021 11:51-0400 SaO2% (BldA) [Mass fraction] 98 % Dion Athy PA-C Work Phone: [facility] 11-13-2021 11:51-0400 Systolic blood pressure 130 mm[Hg] Dion Athy PA-C Work Phone: [facility] 10-17-2021 11:10-0400 Body temperature 98.01 [degF] Jac Mullen MD Work Phone: [facility] 10-17-2021 11:10-0400 Body weight 126.55 kg Jac Mullen MD Work Phone: [facility] 10-17-2021 11:10-0400 Diastolic blood pressure 84 mm[Hg] Jac Mullen MD Work Phone: [facility] 10-17-2021 11:10-0400 Heart rate 66 /min Jac Mullen MD Work Phone: [facility] 10-17-2021 11:10-0400 Respiratory rate 16 /min Jac Mullen MD Work Phone: [facility] 10-17-2021 11:10-0400 SaO2% (BldA) [Mass fraction] 99 % Jac Mullen MD Work Phone: [facility] 10-17-2021 11:10-0400 Systolic blood pressure 122 mm[Hg] Jac Mullen MD Work Phone: [facility] 06-10-2021 11:20-0400 Diastolic Blood Pressure NBP 63 1 IRMA JEWELL DO [facility] 06-10-2021 11:20-0400 Heart rate 75 /min IRMA JEWELL DO [facility] 06-10-2021 11:20-0400 Respiratory rate 19 /min IRMA JEWELL DO [facility] 06-10-2021 11:20-0400 Systolic Blood Pressure NBP 111 1 IRMA JEWELL DO [facility] 06-10-2021 11:15-0400 Heart rate 72 /min IRMA JEWELL DO [facility] 06-10-2021 11:15-0400 Respiratory rate 15 /min IRMA JEWELL DO [facility] 06-10-2021 11:10-0400 Diastolic Blood Pressure NBP 67 1 IRMA JEWELL DO [facility] 06-10-2021 11:10-0400 Heart rate 77 /min IRMA JEWELL DO [facility] 06-10-2021 11:10-0400 Respiratory rate 19 /min IRMA JEWELL DO [facility] 06-10-2021 11:10-0400 Systolic Blood Pressure NBP 95 1 IRMA JEWELL DO [facility] 06-10-2021 11:05-0400 Diastolic Blood Pressure NBP 69 1 IRMA JEWELL DO [facility] 06-10-2021 11:05-0400 Systolic Blood Pressure NBP 100 1 IRMA JEWELL DO [facility] 06-10-2021 10:55-0400 Body temperature 97.52 [degF] IRMA JEWELL DO [facility] 06-10-2021 08:16-0400 Body height 162.6 cm IRMA JEWELL DO [facility] 06-10-2021 08:16-0400 Body temperature 96.98 [degF] IRMA JEWELL DO [facility] 06-10-2021 08:16-0400 Body weight 132.1 kg IRMA JEWELL DO [facility] 06-10-2021 08:16-0400 Heart rate 79 /min IRMA JEWELL DO [facility] 06-09-2021 10:24-0400 Body height 162.6 cm IRMA JEWELL DO [facility] 06-09-2021 10:24-0400 Body weight 132.1 kg IRMA JEWELL DO [facility] 06-09-2021 10:24-0400 Body weight 49.96 kg/m2 IRMA JEWELL DO [facility] 06-09-2021 10:24-0400 diastolic 68 mm[Hg] IRMA JEWELL DO [facility] 06-09-2021 10:24-0400 Heart rate 73 /min IRMA JEWELL DO [facility] 06-09-2021 10:24-0400 Respiratory rate 22 /min IRMA JEWELL DO [facility] 06-09-2021 10:24-0400 systolic 140 mm[Hg] IRMA JEWELL DO [facility] Encounters Encounter Date Encounter Type Care Provider Facility Start: 02-28-2023 End: 02-28-2023 Emergency department patient visit LAURA RICHARDSON MD Facility:[facility] Start: 02-28-2023 End: 02-28-2023 Emergency department patient visit LAURA RICHARDSON MD [facility] Start: 02-27-2023 End: 02-27-2023 Emergency department patient visit ARAM JOHNSON DO Facility:[facility] Start: 02-27-2023 End: 02-27-2023 Emergency department patient visit ALEX TEMPLETON MD [facility] Start: 02-24-2023 End: 02-24-2023 Emergency department patient visit ARAM JOHNSON DO Facility:[facility] Start: 02-24-2023 End: 02-24-2023 Emergency department patient visit DR DEBBIE CHATMAN DO [facility] Start: 02-20-2023 End: 02-20-2023 Emergency department patient visit DR VAHE JENKINS MD Facility:[facility] Start: 02-17-2023 End: 02-17-2023 Emergency department patient visit ARAM JOHNSON DO Facility:[facility] Start: 02-17-2023 End: 02-17-2023 Emergency department patient visit DR DAQUAN MAI MD [facility] Start: 01-23-2023 End: 01-23-2023 Emergency department patient visit ARAM ALEX DO Facility:[facility] Start: 01-23-2023 End: 01-23-2023 Emergency department patient visit AUDRA PHILLIPS DO [facility] Start: 01-18-2023 End: 01-19-2023 ambulatory SATNAM RODRIGUEZ Facility:[facility] Start: 01-18-2023 End: 01-18-2023 Patient encounter procedure Satnam Rodriguez TOLL GATE TENDER.ADULT CARE PROVIDER Work Phone: [facility] Procedures Date Procedure Procedure Detail Performing Clinician Start: 12-14-2022 Urnls dip stick/tabl et rgnt auto w/o microscopy Dion Escobar PA-C Work Phone: Start: 02-25-2022 COVID WITH FLUA+B, ROUTINE Ria Older TOLL GATE TENDER.ADULT CARE PROVIDER Work Phone: Start: 09-28-2020 Cardiac catheterization IRMA JEWELL DO Plan of Treatment Date Care Activity Detail Author Start: 01-18-2026 Diabetes Screening Diabetes Screenin g [facility] Start: 12-14-2025 Diabetes Screening Diabetes Screenin g [facility] Start: 12-14-2022 End: 03-15-2023 CBC W Auto Differential panel - Blood [facility] Work Phone: Payers Date Payer Category Payer Medicaid [id number] 2019 Medicaid MEDICAID [facility] MEDICAID [id number] 2019-Present [phone] [address] [place] [address] Medicaid [id number] 2019 Medicare [id number] 2019 Medicare [employer] [place] [id number] 2019-Present [phone] [address] [place] [address] HMO [id number] 1970 Unknown [id number] 1970 Unknown [id number] 1970 Unknown [id number] 1970 Unknown [id number] 1970 Unknown [id number] [id number] 1970 Unknown [id number] 1970 Unknown [id number] 1970 Unknown [id number] 1970 Unknown [id number] [id number]. 1970 Unknown [id number] 1970 Unknown [id number] 1970 Unknown [id number] 1970 Unknown [id number] Social History Date Type Detail Facility Start: 11-25-2018 End: 04-23-2020 Tobacco smoking status PAIS Never smoker [employer] Work Phone: Start: 10-19-2010 End: 04-23-2020 Tobacco use and exposure Never used [employer] Work Phone: Start: 04-23-2020 Alcohol intake Lifetime non-d ambar (finding) [employer] Work Phone: Start: 04-23-2020 History SDOH Alcohol Frequency 1 [employer] Phone: Start: 1970 Sex Assigned At Not on file [facility] [employer] Work Phone: Sex Assigned At Female [facility] Start: 10-17-2021 End: 01-18-2023 Alcohol intake Current non-drinker of alcohol (finding) [facility] Start: 11-03-2021 End: 11-13-2021 Exposure to SARS-CoV-2 (event) Not sure [facility] Start: 11-16-2022 End: 01-18-2023 History of Social function [facility] Start: 11-16-2022 End: 01-18-2023 Tobacco use panel [facility] Functional Status Date Assessment Result Facility 02-28-2023 Functional Status Up ad javed [facility] 02-28-2023 Functional Status Standard Safet y ID band on, Allergy Band on, Call device within reach, Bed in low position, Wheels locked, Bedside Cart Locked, Safety level maintained [facility] 02-27-2023 Functional Status Assistive Device None A [facility] 02-27-2023 Functional Status Standard Safet y ID band on, Allergy Band on, Call device within reach, Bed in low position, Wheels locked, Bedside Cart Locked, Visitor at bedside [facility] 02-24-2023 Functional Status Identified as high risk, Fall ID band on [facility] 02-17-2023 Functional Status [facility] Functional Status ID band on [facility] 01-23-2023 Functional Status Assistive Device None A [facility] 01-23-2023 Functional Status Standard Safety ID band on [facility] 01-10-2023 Functional Status Room check performed [facility] 01-10-2023 Functional Status Johny Singh [facility] 01-10-2023 Functional Status Johny Singh [facility] 12-25-2022 Functional Status Standard Safet y ID band on, Call device within reach, Bed in low position, Wheels locked [facility] 12-24-2022 Functional Status Johny Singh [facility] 12-24-2022 Functional Status Johny Singh [facility] 10-03-2022 Functional Status Independent Johny Singh [facility] 09-23-2022 Functional Status Activity Mago tance Independent [facility] 08-13-2022 Functional Status Assistive Device Crutch es [facility] 12-20-2021 Functional Status Independent Johny Singh [facility] 06-10-2021 Functional Status Johny Singh [facility] 06-10-2021 Functional Status Johny Singh [facility] 06-09-2021 Functional Status Johny Singh [facility] Mental Status Date Assessment Result Facility 02-28-2023 Mental Status Orientation Oriented x 4 [facility] 02-27-2023 Mental Status Orientation Oriented x 4 [facility] 02-27-2023 [facility] Mental Status Oriented x 4 [facility] 02-17-2023 Mental Status Orientation Oriented x 4 [facility] 01-23-2023 Mental Status Orientation Oriented x 4 [facility] 01-23-2023 Mental Status [facility] 01-10-2023 Mental Status Orientation Oriented x 4 [facility] 01-10-2023 Mental Status [facility] 12-24-2022 Mental Status Orientation Oriented x 4 [facility] 10-03-2022 Mental Status Orientation Oriented x 4 [facility] 09-23-2022 Mental Status Orientation Oriented x 4 [facility] 09-23-2022 Mental Status [facility] 08-13-2022 Mental Status Oriented x 4 [facility] 12-20-2021 Mental Status Orientation Oriented x 4 [facility] 06-10-2021 Mental Status [facility] 06-10-2021 Mental Status [facility] Clinical Notes 06-10-2021 to 02-28-2023 Addendum Note - Satnam Rodriguez APRN.[facility] - 01/18/2023 10:48 AM ESTPatient InstructionsSatnam Rodriguez APRN.ADULT CARE PROVIDER - 01/18/2023 7:42 AM ESTPatient InstructionsPatient InstructionsLaboratoryLaboratory Note Date & Type Note Facility 02-28-2023 Hospital Discharge instructions Patient Education 02/28/2023 12:49:36 Diet for Vomiting or Diarrhea (Adult) Diet for Vomiting or Diarrhea (Adult) Your symptoms may return or get worse after eating certain foods listed below. If this happens, stop eating these foods until your symptoms ease and you feel better. Once the vomiting stops, follow the steps below. During the first 12 to 24 hours During the first 12 to 24 hours, follow this diet: Drinks. Plain water, sport drinks like electrolyte solutions, soft drinks without caffeine, mineral water (plain or flavored), clear fruit juices, and decaffeinated tea and coffee. Soups. Clear broth. Desserts. Plain gelatin, popsicles, and fruit juice bars. As you feel better, you may add 6 to 8 ounces of yogurt per day. If you have diarrhea, don't have foods or drinks that contain sugar, high-fructose corn syrup, or sugar alcohols. During the next 24 hours During the next 24 hours you may add the following to the above: Hot cereal, plain toast, bread, rolls, and crackers Plain noodles, rice, mashed potatoes, and chicken noodle or rice soup Unsweetened canned fruit (but not pineapple) and bananas Don't eat more than 15 grams of fat a day. Do this by staying away from margarine, butter, oils, mayonnaise, sauces, gravies, fried foods, peanut butter, meat, poultry, and fish. Don't eat much fiber. Stay away from raw or cooked vegetables, fresh fruits (except bananas), and bran cereals. Limit how much caffeine and chocolate you have. Do not use any spices or seasonings except salt. During the next 24 hours Slowly go back to your normal diet, as you feel better and your symptoms ease. 3220-7378 The [employer]. [address] [place] [address]. All rights reserved. This information is not intended as a substitute for professional medical care. Always follow your healthcare professional's instructions. Follow Up Care 02/28/2023 12:09:26 With:ARAM JOHNSON DO Address: [address] [place] [phone]- [phone] When:2-4 days [facility] 02-28-2023 Note Discharge Instructions Thank you for allowing [facility] to assist you with your healthcare needs. The following is important discharge information regarding your hospital visit. Diagnosis from Today's Visit Arm pain-swelling Diarrhea Diarrhea Leg wound What to Do Next Instructions from Your Care Team No qualifying data available. Post Acute Orders No qualifying data available. You Need to Schedule the Following Appointments Follow Up with ARAM JOHNSON DO When Within 2-4 days Where: [address] [place] [address]- [phone] Allergies Naprosyn (Nausea) aspirin (NAUSEA) Medications Please ask your primary doctor or pharmacist before taking any other medication not listed, including over the counter drugs, herbal medications, vitamins and or supplements as they may interact with your home medications. What How Much When Why Instructions Last Dose New loperamide (Imodium A-D 2 mg oral tablet) 1 tab(s) by mouth Every 4 hours as needed for for loose stools Duration: 7 Days Printed Prescription Changed acetaminophen (acetaminophen 325 mg oral capsule) 2 cap by mouth Every 4 hours as needed for for pain Duration: 10 Days Printed Prescription Changed acetaminophen (Tylenol Extra Strength 500 mg oral tablet) 3 tab by mouth Every 6 hours as needed for as needed for pain Unchanged acetaminophen-hydrocodone ([place] 325- 5 mg oral tablet) 1 tab(s) [...] Vaginal bleeding Duration: 90 Days Managed by OB-PARKING ENFORCEMENT OFFICER Unchanged nortriptyline (nortriptyline 50 mg oral capsule) [...] providers or retail pharmacies. Medication Leaflets acetaminophen (oral) (a SEET a MIN oh lj) Anacin AF, Children's Tylenol, Mapap, M-Pap, Pharbetol, Silapap Childrens, Tempra Quicklets, Tycolene, Tylenol What is the most important information I should know about acetaminophen? An overdose of acetaminophen can damage your liver or cause . Call your doctor at once if you have upper stomach pain, loss of appetite, dark urine, or jaundice (yellowing of your skin or eyes). Stop taking this medicine and get medical help if you have skin redness or a blistering rash. What is acetaminophen? Acetaminophen is used to reduce fever and relieve minor pain caused by conditions such as colds or flu, headache, muscle aches, arthritis, and menstrual cramps. Acetaminophen may also be used for purposes not listed in this medication guide. What should I discuss with my healthcare provider before taking acetaminophen? You should not take acetaminophen if you are allergic to it, or if you take other medications that contain acetaminophen. Ask a doctor or pharmacist if this medicine is safe to use if you've ever had cirrhosis of the liver, or if you drink alcohol daily. Ask a doctor before using this medicine if you are or . How should I take acetaminophen? Use exactly as directed on the label, or as prescribed by your doctor. An acetaminophen overdose can damage your liver or cause . Adults and teenagers at least 12 years old: Do not take more than 1000 milligrams (mg) at one time or more than 4000 mg in 24 hours. Children younger than 12 years old: Do not take more than 5 doses of children's formula acetaminophen in 24 hours. Do not give extra-strength acetaminophen to a child younger than 12 years old without medical advice. A child's dose is based on age and weight. Carefully follow the dosing instructions provided with this medicine. Ask a doctor before giving this medicine to a child younger than 2 years. Acetaminophen made for infants comes with its own medicine dropper or oral syringe. Measuring with the wrong device may cause an overdose. Use only the provided dosing device provided to measure an 's dose. Acetaminophen comes in many different forms such as capsules, liquid, chewable or disintegrating tablets, and dissolving powders or granules. Read and carefully follow any Instructions for Use provided with your medicine. Ask your doctor or pharmacist if you need help. Stop taking acetaminophen and call your doctor if: you still have a sore throat after 2 days of use; you still have a fever after 3 days of use; you still have pain after 7 days of use (or 5 days if treating a child); you have a skin rash, ongoing headache, nausea, vomiting, redness or swelling; or your symptoms get worse, or if you have any new symptoms. Taking acetaminophen may cause false results with certain blood glucose monitors. If you have diabetes, ask your doctor about the best way to monitor your blood sugar levels while using acetaminophen. Store at room temperature away from heat and moisture. What happens if I miss a dose? Acetaminophen is used when needed. If you are on a dosing schedule, skip any missed dose. Do not use two doses at one time. What happens if I overdose? Seek emergency medical attention or call the Poison Help line at . An overdose can be fatal. Overdose symptoms include vomiting, stomach pain, and yellowing of your skin or eyes. What should I avoid while taking acetaminophen? Avoid using other medicines that may contain acetaminophen. Avoid drinking alcohol. What are the possible side effects of acetaminophen? Get emergency medical help if you have signs of an allergic reaction: hives; difficulty breathing; swelling of your face, lips, tongue, or throat. In rare cases, acetaminophen may cause a severe skin reaction that can be fatal, even if you took acetaminophen in the past and had no reaction. Stop taking this medicine and call your doctor right away if you have skin redness or a rash that spreads and causes blistering and peeling. Stop taking acetaminophen and call your doctor at once if you have signs of liver problems: stomach pain (upper right side); loss of appetite; tiredness, itching; dark urine, nito-colored stools; or jaundice (yellowing of the skin or eyes). Less serious side effects may be more likely, and you may have none at all. This is not a complete list of side effects and others may occur. Call your doctor for medical advice about side effects. You may report side effects to FDA at 5-276-KNS-1399. What other drugs will affect acetaminophen? Other drugs may affect acetaminophen, including prescription and [id number] medicines, vitamins, and herbal products. Tell your doctor about all other medicines you use. Where can I get more information? Your pharmacist can provide more information about acetaminophen. Remember, keep this and all other medicines out of the reach of children, never share your medicines with others, and use this medication only for the indication prescribed. Every effort has been made to ensure that the information provided by [employer]. ('[employer]') is accurate, up-to-date, and complete, but no guarantee is made to that effect. Drug information contained herein may be time sensitive. [employer] information has been compiled for use by healthcare practitioners and consumers in the [place] and therefore [employer] does not warrant that uses outside of the [place] are appropriate, unless specifically indicated otherwise. [employer] drug information does not endorse drugs, diagnose patients or recommend therapy. [employer] drug information is an informational resource designed [...] effective or appropriate for any given patient. [employer] does not assume any responsibility for any aspect of healthcare administered with the aid of information [employer] provides. The information contained herein is not intended to cover all possible uses, directions, precautions, warnings, drug interactions, allergic reactions, or adverse effects. If you have questions about the drugs you are taking, check with your doctor, nurse or pharmacist. Copyright 6466-6993 [employer]. Version: 25.. Revision Date: 09/27/2022. loperamide (maria e PER a mide) Imodium, Imodium A-D, Imodium A-D New Formula What is the most important information I should know about loperamide? You should not use loperamide if you have ulcerative colitis, bloody or tarry stools, diarrhea with a high fever, or diarrhea caused by antibiotic medication. Loperamide is safe when used as directed. TAKING TOO MUCH LOPERAMIDE CAN CAUSE SERIOUS HEART PROBLEMS OR . Serious heart problems may also happen if you take loperamide with other medicines. Ask a doctor or pharmacist about safely using medications together. Do not give loperamide to a child younger than 2 years old. What is loperamide? Loperamide is used to treat diarrhea. Loperamide is also used to reduce the amount of stool in people who have an ileostomy (re-routing of the bowel through a surgical opening in the stomach). Loperamide may also be used for purposes not listed in this medication guide. What should I discuss with my healthcare provider before taking loperamide? You should not use loperamide if you are allergic to it, or if you have: stomach pain without diarrhea; diarrhea with a high fever; ulcerative colitis; diarrhea that is caused by a bacterial infection; or stools that are bloody, black, or tarry. Ask your doctor before using loperamide to treat diarrhea caused by taking an antibiotic (Clostridium difficile). Do not give loperamide to a child younger than 2 years old. Do not give this medicine to an older child or teenager without a doctor's advice. Ask a doctor or pharmacist if it is safe for you to take loperamide if you have: a fever; mucus in your stools; liver disease; or a heart rhythm disorder. Ask a doctor before using this medicine if you are . You should not breast-feed while you are using loperamide. How should I take loperamide? Use exactly as directed on the label, or as prescribed by your doctor. Loperamide is safe when used as directed. TAKING TOO MUCH LOPERAMIDE CAN CAUSE SERIOUS HEART PROBLEMS OR . Always follow directions on the medicine label about giving loperamide to a child. A safe dose of loperamide is different for an adult than for a child. Doses in children are based on the child's age. Take loperamide with a full glass of water. Diarrhea can cause your body to lose fluids and electrolytes. Drink plenty of liquids to keep from getting dehydrated. The loperamide chewable tablet must be chewed before swallowing. Shake the oral suspension (liquid) before you measure a dose. Use the dosing syringe provided, or use a medicine dose-measuring device (not a kitchen spoon). Not all liquid forms of loperamide are the same strengths. Carefully follow all dosing instructions for the medicine you are using. Store at room temperature away from moisture and heat. Do not allow the liquid medicine to freeze. Stop taking loperamide and call your doctor if you still have diarrhea after 2 days of treatment, or if you also have stomach bloating. What happens if I miss a dose? Since loperamide is used when needed, it does not have a daily dosing schedule. Call your doctor if your symptoms do not improve after using this medicine. What happens if I overdose? Seek emergency medical attention or call the Poison Help line at . An overdose of loperamide can be fatal. Overdose symptoms may include fast or irregular heartbeats, or fainting. A person caring for you should seek emergency medical attention if you pass out and are hard to wake up. What should I avoid while taking loperamide? Avoid drinking tonic water. It can interact with loperamide and may cause serious heart problems. Avoid becoming dehydrated by drinking plenty of fluids. Avoid vigorous exercise or exposure to hot weather if you are dehydrated. Avoid driving or hazardous activity until you know how this medicine will affect you. Your reactions could be impaired. What are the possible side effects of loperamide? Get emergency medical help if you have signs of an allergic reaction (hives, difficult breathing, swelling in your face or throat) or a severe skin reaction (fever, sore throat, burning in your eyes, skin pain, red or purple skin rash that spreads and causes blistering and peeling). Stop taking loperamide and call your doctor at once if you have: diarrhea that is watery or bloody; stomach pain or bloating; ongoing or worsening diarrhea; or fast or pounding heartbeats, fluttering in your chest, shortness of breath, and sudden dizziness (like you might pass out). Common side effects may include: constipation; dizziness, drowsiness; nausea; or stomach cramps. This is not a complete list of side effects and others may occur. Call your doctor for medical advice about side effects. You may report side effects to FDA at 1-090-EHN-7753. What other drugs will affect loperamide? Sometimes it is not safe to use certain medications at the same time. Some drugs can affect your blood levels of other drugs you take. Ask a doctor or pharmacist about safely using medications together. Loperamide can cause a serious heart problem. Your risk may be higher if you also use certain other medicines for infections, heart problems, depression, mental illness, cancer, malaria, or HIV. Many drugs can affect loperamide. This includes prescription and oncy-hwr-ihgicpa medicines, vitamins, and herbal products. Not all possible interactions are listed here. Tell your doctor about all your current medicines and any medicine you start or stop using. Where can I get more information? Your pharmacist can provide more information about loperamide. Remember, keep this and all other medicines out of the reach of children, never share your medicines with others, and use this medication only for the indication prescribed. Every effort has been made to ensure that the information provided by [employer]. ('Yeeliontum') is accurate, up-to-date, and complete, but no guarantee is made to that effect. Drug information contained herein may be time sensitive. [employer] information has been compiled for use by healthcare practitioners and consumers in the [place] and therefore [employer] does not warrant that uses outside of the [place] are appropriate, unless specifically indicated otherwise. [employer]'s drug information does not endorse drugs, diagnose patients or recommend therapy. [employer] drug information is an informational resource designed [...] effective or appropriate for any given patient. [employer] does not assume any responsibility for any aspect of healthcare administered with the aid of information [employer] provides. The information contained herein is not intended to cover all possible uses, directions, precautions, warnings, drug interactions, allergic reactions, or adverse effects. If you have questions about the drugs you are taking, check with your doctor, nurse or pharmacist. Copyright 6148-3477 [employer]. Version: 12.30. Revision Date: 11/17/2022. Education Materials Diet for Vomiting or Diarrhea (Adult) Your symptoms may return or get worse after eating certain foods listed below. If this happens, stop eating these foods until your symptoms ease and you feel better. Once the vomiting stops, follow the steps below. During the first 12 to 24 hours During the first 12 to 24 hours, follow this diet: Drinks. Plain water, sport drinks like electrolyte solutions, soft drinks without caffeine, mineral water (plain or flavored), clear fruit juices, and decaffeinated tea and coffee. Soups. Clear broth. Desserts. Plain gelatin, popsicles, and fruit juice bars. As you feel better, you may add 6 to 8 ounces of yogurt per day. If you have diarrhea, don't have foods or drinks that contain sugar, high-fructose corn syrup, or sugar alcohols. During the next 24 hours During the next 24 hours you may add the following to the above: Hot cereal, plain toast, bread, rolls, and crackers Plain noodles, rice, mashed potatoes, and chicken noodle or rice soup Unsweetened canned fruit (but not pineapple) and bananas Don't eat more than 15 grams of fat a day. Do this by staying away from margarine, butter, oils, mayonnaise, sauces, gravies, fried foods, peanut butter, meat, poultry, and fish. Don't eat much fiber. Stay away from raw or cooked vegetables, fresh fruits (except bananas), and bran cereals. Limit how much caffeine and chocolate you have. Do not use any spices or seasonings except salt. During the next 24 hours Slowly go back to your normal diet, as you feel better and your symptoms ease. 2036-9263 The [employer]. [address] [place] [address], [place] [address]. All rights reserved. This information is not intended as a substitute for professional medical care. Always follow your healthcare professional's instructions. Additional Information VACCINATE! IT SAVES LIVES! Members of the community who have not yet received the COVID-19 vaccine and would like to receive it can visit one of [facility] vaccine clinics. There are many vaccine clinic locations within the [facility]. For locations and available times, please visit [email or web address] [email or web address] It is important to note that some COVID mobile vaccine clinics are held outdoors and may be canceled in rainy or stormy conditions. To learn more about pediatric vaccinations (ages 5-11), we invite you to visit the [facility] webpage. https://www.akronGeenapps.org/p ages/3728-Swzlo-Dxdkfnxgcgz-Freq turrio-Tyrvl-Gszooqpxo.html To learn more about the COVID-19 vaccine, we invite you to visit the CDC website for a list of frequently asked questions. https://www.cdc.gov/coronavirus/ 2019-ncov/vaccines/faq.html [facility] Patient Portal Access Instructions: Stay connected with your healthcare team and access your personal medical information anytime with the [facility] Patient Portal. If you would like a full copy of your medical records please contact the [facility] Medical Records Department Tuesday through Tuesday between 8a.m. and 4:30p.m. Please follow the directions below to access the portal: 1.Access the email account you provided upon registration to the hospital.2.Look for an invitation email from [facility].3.Open the email and access the invitation link: Accept Invitation to [facility]4.Fill in the required lee to create your account. Sign into [email or web address] with your username and password that you [...] you will allow to register on the [facility] Patient Portal for access to your information. You can also access the [facility] Patient Portal on the Recurve helder. Simply click on Health Records under [...] Call your local pharmacy or go to [email or web address] to find one close to you.3.Make use of household items: Use cat litter or old coffee grounds to dispose medications if other options are not available. Mix your drugs with these household products, seal them in an airtight container and throw it into the garbage. Call [facility]: [phone] to be sure your drugs can be [...] a CHART COPY Signatures Patient Education Materials Diet for Vomiting or Diarrhea (Adult) Medication Leaflets acetaminophen (oral), loperamide My discharge plan and instructions have been reviewed and explained to me and I,KAMALA CARMEN understand my current condition and have read and understand these discharge instructions. I have received a written copy of the plan/instructions. If I have questions, I am aware that I should contact my doctor. Patient/Restaurant Maintenance Technician Signature: Date/Time: Relationship to Patient: Witness Name/Signature: Date/Time: [facility] 02-27-2023 Hospital Discharge instructions Patient Education 02/27/2023 06:24:39 Dizziness, Uncertain Cause Dizziness (Uncertain Cause) Dizziness is a common symptom. It may be described as lightheadedness, spinning, or feeling like you are going to faint. Dizziness can have many causes. Be sure to tell the healthcare provider about: All medicines you take, including prescription, tijm-xfz-dxovdvt, herbs, and supplements Any other symptoms you [...] Chest, arm, neck, back, or jaw pain 4929-5417 The [employer]. [address] [place] [address]. All rights reserved. This information is not intended as a substitute for professional medical care. Always follow your healthcare professional's instructions. Follow Up Care 02/27/2023 05:53:35 With:ARAM JOHNSON DO Address: [address] [place] [phone] When:2-4 days [facility] 02-27-2023 Note Discharge Instructions Thank you for allowing [facility] to assist you with your healthcare needs. The following is important discharge information regarding your hospital visit. Diagnosis from Today's Visit Dizziness Medication overdose What to Do Next Instructions from Your Care Team No qualifying data available. Post Acute Orders No qualifying data available. You Need to Schedule the Following Appointments Follow Up with ARAM JOHNSON DO When Within 2-4 days Where: [address] [place] [address]- [phone] Allergies Naprosyn (Nausea) aspirin (NAUSEA) Medications Please [...] for as needed for pain Unchanged acetaminophen-hydrocodone (Thorsby 325- 5 mg oral tablet) 1 tab(s) [...] Vaginal bleeding Duration: 90 Days Managed by OB-PARKING ENFORCEMENT OFFICER Unchanged nortriptyline (nortriptyline 50 mg oral capsule) [...] about: All medicines you take, including prescription, twvn-yss-cyhdpip, herbs, and supplements Any other symptoms you [...] Chest, arm, neck, back, or jaw pain 4109-6931 The [employer]. [address] [place] [address]. All rights reserved. This information is not intended as a substitute for professional medical care. Always follow your healthcare professional's instructions. Additional Information VACCINATE! IT SAVES LIVES! Members of the community who have not yet received the COVID-19 vaccine and would like to receive it can visit one of [facility] vaccine clinics. There are many vaccine clinic locations within the [facility]. For locations and available times, please visit [email or web address] [email or web address] It is important to note that some COVID mobile vaccine clinics are held outdoors and may be canceled in rainy or stormy conditions. To learn more about pediatric vaccinations (ages 5-11), we invite you to visit the [facility] webpage. https://www.[facility].org/p ages/9544-Tnkjr-Jywsbjlrtyo-Freq uvmxeu-Pshnv-Fwijmkxup.html To learn more about the COVID-19 vaccine, we invite you to visit the CDC website for a list of frequently asked questions. https://www.cdc.gov/coronavirus/ 2019-ncov/vaccines/faq.html [facility] Patient Portal Access Instructions: Stay connected with your healthcare team and access your personal medical information anytime with the [facility] Patient Portal. If you would like a full copy of your medical records please contact the [facility] Medical Records Department Tuesday through Tuesday between 8a.m. and 4:30p.m. Please follow the directions below to access the portal: 1.Access the email account you provided upon registration to the [facility].2.Look for an invitation email from [facility].3.Open the email and access the invitation link: Accept Invitation to [facility]4.Fill in the required lee to create your account. Sign into [email or web address] with your username and password that you [...] you will allow to register on the [facility] Patient Portal for access to your information. You can also access the [facility] Patient Portal on the Recurve helder. Simply click on Health Records under [...] Call your local pharmacy or go to http://[email or web address] to find one close to you.3.Make use of household items: Use cat litter or old coffee grounds to dispose medications if other options are not available. Mix your drugs with these household products, seal them in an airtight container and throw it into the garbage. Call [facility]: [phone] to be sure your drugs can be [...] reviewed and explained to me and I,KAMALA CARMEN understand my current condition and have read and understand these discharge instructions. I have received a written copy of the plan/instructions. If I have questions, I am aware that I should contact my doctor. Patient/Restaurant Maintenance Technician Signature: Date/Time: Relationship to Patient: Witness Name/Signature: Date/Time: [facility] 02-24-2023 Hospital Discharge instructions Patient Education [...] or higher after 2 days on antibiotics [phone] The [employer]. [address] [place] [address], [place] [address]. All rights reserved. This information is not intended as a substitute for professional medical care. Always follow your healthcare professional's instructions. Follow Up Care 02/24/2023 16:26:27 With:ARAM JOHNSON DO Address: [address] [place] [address]- [phone] When:2-4 days [facility] 02-24-2023 Note Discharge Instructions Thank you for allowing [facility] to assist you with your healthcare needs. [...] DO When Within 2-4 days Where: [address] [place] [address]- [phone] Allergies Naprosyn (Nausea) aspirin (NAUSEA) Medications Please [...] for as needed for pain Unchanged acetaminophen-hydrocodone (Thorsby 325- 5 mg oral tablet) 1 tab(s) [...] Vaginal bleeding Duration: 90 Days Managed by OB-PARKING ENFORCEMENT OFFICER Unchanged nortriptyline (nortriptyline 50 mg oral capsule) [...] may report side effects to FDA at 3-014-JAQ-3020. What other drugs will affect cephalexin? Tell your doctor about all your other medicines, especially: metformin; or probenecid. This list is not complete. Other drugs may affect cephalexin, including prescription and nnng-miv-jfxircj medicines, vitamins, and herbal products. Not all [...] to ensure that the information provided by [employer]. ('[employer]') is accurate, up-to-date, and complete, but no guarantee is made to that effect. Drug information contained herein may be time sensitive. [employer] information has been compiled for use by healthcare practitioners and consumers in the [place] and therefore [employer] does not warrant that uses outside of the [place] are appropriate, unless specifically indicated otherwise. [employer] drug information does not endorse drugs, diagnose patients or recommend therapy. [employer] drug information is an informational resource designed [...] effective or appropriate for any given patient. [employer] does not assume any responsibility for any aspect of healthcare administered with the aid of information [employer] provides. The information contained herein is not intended to cover all possible uses, directions, precautions, warnings, drug interactions, allergic reactions, or adverse effects. If you have questions about the drugs you are taking, check with your doctor, nurse or pharmacist. Copyright 9226-1300 [employer]. Version: 12.. Revision Date: 09/29/2022. Education Materials [...] or higher after 2 days on antibiotics 6034-6699 The [employer]. [address] [place] [address], [place] [address]. All rights reserved. This information is not intended as a substitute for professional medical care. Always follow your healthcare professional's instructions. Additional Information VACCINATE! IT SAVES LIVES! Members of the community who have not yet received the COVID-19 vaccine and would like to receive it can visit one of [facility] vaccine clinics. There are many vaccine clinic locations within the [facility]. For locations and available times, please visit www.[email or web address] [email or web address].[place]. gov/. It is important to note that some COVID mobile vaccine clinics are held outdoors and may be canceled in rainy or stormy conditions. To learn more about pediatric vaccinations (ages 5-11), we invite you to visit the [facility] webpage. https://www.[facility].org/p ages/3299-Eoxyu-Swsqoyfsytb-Freq mjbitq-Cmonm-Pemwgjicz.html To learn more about the COVID-19 vaccine, we invite you to visit the CDC website for a list of frequently asked questions. https://www.cdc.gov/coronavirus/ 2019-ncov/vaccines/faq.html [facility] Patient Portal Access Instructions: Stay connected with your healthcare team and access your personal medical information anytime with the [facility] Patient Portal. If you would like a full copy of your medical records please contact the [facility] Medical Records Department Tuesday through Tuesday between 8a.m. and 4:30p.m. Please follow the directions below to access the portal: 1.Access the email account you provided upon registration to the hospital.2.Look for an invitation email from [facility].3.Open the email and access the invitation link: Accept Invitation to [facility]4.Fill in the required lee to create your account. Sign into [email or web address] with your username and password that you [...] you will allow to register on the [facility] Patient Portal for access to your information. You can also access the [facility] Patient Portal on the Recurve helder. Simply click on Health Records under [...] Call your local pharmacy or go to [email or web address] to find one close to you.3.Make use of household items: Use cat litter or old coffee grounds to dispose medications if other options are not available. Mix your drugs with these household products, seal them in an airtight container and throw it into the garbage. Call [facility]: [phone] to be sure your drugs can be [...] reviewed and explained to me and I,KAMALA CARMEN understand my current condition and have read and understand these discharge instructions. I have received a written copy of the plan/instructions. If I have questions, I am aware that I should contact my doctor. Patient/Restaurant Maintenance Technician Signature: Date/Time: Relationship to Patient: Witness Name/Signature: Date/Time: [facility] 02-17-2023 Hospital Discharge instructions Patient Education [...] the ears or bruising around the eyes 9012-6926 The [employer]. [address] [place] [address]. All rights reserved. This information is not intended as a substitute for professional medical care. Always follow your healthcare professional's instructions. Follow Up Care 02/17/2023 07:23:32 With:ARAM JOHNSON DO Address: [address] [place] [phone]- [phone] When:2-4 days [facility] 02-17-2023 Emergency department Discharge summary Discharge Instructions Thank you for allowing [facility] to assist you with your healthcare needs. [...] JOHNSON DO When Within 2-4 days Where: [address] [place] [address]- [phone] Allergies Naprosyn (Nausea) aspirin (NAUSEA) Medications Please ask your primary doctor or pharmacist before taking any other medication not listed, including over the counter drugs, herbal medications, vitamins and or supplements as they may interact with your home medications. What How Much When Why Instructions Last Dose New acetaminophen-hydrocodone (Thorsby 325- 5 mg oral tablet) 1 tab(s) [...] Vaginal bleeding Duration: 90 Days Managed by OB-PARKING ENFORCEMENT OFFICER Unchanged nortriptyline (nortriptyline 50 mg oral capsule) [...] may report side effects to FDA at 9-134-VFM-7340. What other drugs will affect acetaminophen and [...] affect acetaminophen and hydrocodone, including prescription and tryx-oqh-ucpviee medicines, vitamins, and herbal products. Not all [...] to ensure that the information provided by [employer]. ('[employer]') is accurate, up-to-date, and complete, but no guarantee is made to that effect. Drug information contained herein may be time sensitive. [employer] information has been compiled for use by healthcare practitioners and consumers in the [place] and therefore [employer] does not warrant that uses outside of the [place] are appropriate, unless specifically indicated otherwise. [employer] drug information does not endorse drugs, diagnose patients or recommend therapy. [employer] drug information is an informational resource designed [...] effective or appropriate for any given patient. [employer] does not assume any responsibility for any aspect of healthcare administered with the aid of information [employer] provides. The information contained herein is not intended to cover all possible uses, directions, precautions, warnings, drug interactions, allergic reactions, or adverse effects. If you have questions about the drugs you are taking, check with your doctor, nurse or pharmacist. Copyright 2454-7981 [employer]. Version: 19.. Revision Date: 10/18/2022. ondansetron (oral) [...] may report side effects to FDA at 6-950-QPQ-6842. What other drugs will affect ondansetron? Ondansetron [...] interact with ondansetron. This includes prescription and frhe-vvz-azkirot medicines, vitamins, and herbal products. Give a [...] to ensure that the information provided by [employer]. ('[employer]') is accurate, up-to-date, and complete, but no guarantee is made to that effect. Drug information contained herein may be time sensitive. [employer] information has been compiled for use by healthcare practitioners and consumers in the [place] and therefore [employer] does not warrant that uses outside of the [place] are appropriate, unless specifically indicated otherwise. [employer]'s drug information does not endorse drugs, diagnose patients or recommend therapy. [employer] drug information is an informational resource designed [...] effective or appropriate for any given patient. [employer] does not assume any responsibility for any aspect of healthcare administered with the aid of information [employer] provides. The information contained herein is not intended to cover all possible uses, directions, precautions, warnings, drug interactions, allergic reactions, or adverse effects. If you have questions about the drugs you are taking, check with your doctor, nurse or pharmacist. Copyright [id number] [employer], [facility]. Version: 16.. Revision Date: 09/30/2022. Education Materials Head Injury [...] the ears or bruising around the eyes 8352-5928 The [employer]. [address] [place] [address]. All rights reserved. This information is not intended as a substitute for professional medical care. Always follow your healthcare professional's instructions. Additional Information VACCINATE! IT SAVES LIVES! Members of the community who have not yet received the COVID-19 vaccine and would like to receive it can visit one of [facility] vaccine clinics. There are many vaccine clinic locations within the [facility]. For locations and available times, please visit www.gettheshot.coronavirus.[place]. gov/. It is important to note that some COVID mobile vaccine clinics are held outdoors and may be canceled in rainy or stormy conditions. To learn more about pediatric vaccinations (ages 5-11), we invite you to visit the [facility] webpage. https://www.[facility].org/p ages/7142-Ctvum-Rqlsotxtyav-Freq bfvbzf-Asvkp-Gfxzwaran.html To learn more about the COVID-19 vaccine, we invite you to visit the CDC website for a list of frequently asked questions. https://www.cdc.gov/coronavirus/ 2019-ncov/vaccines/faq.html [facility] Patient Portal Access Instructions: Stay connected with your healthcare team and access your personal medical information anytime with the [facility] Patient Portal. If you would like a full copy of your medical records please contact the [facility] Medical Records Department Tuesday through Tuesday between 8a.m. and 4:30p.m. Please follow the directions below to access the portal: 1.Access the email account you provided upon registration to the hospital.2.Look for an invitation email from [facility].3.Open the email and access the invitation link: Accept Invitation to [facility]4.Fill in the required lee to create your account. Sign into [email or web address] with your username and password that you [...] you will allow to register on the [facility] Patient Portal for access to your information. You can also access the [facility] Patient Portal on the Recurve helder. Simply click on Health Records under Health Data and then click on the [employer] logo. HOW TO SAFELY DISPOSE OF PRESCRIPTION [...] Call your local pharmacy or go to http://LeadCloud/4D5Ok9n to find one close to you.3.Make use of household items: Use cat litter or old coffee grounds to dispose medications if other options are not available. Mix your drugs with these household products, seal them in an airtight container and throw it into the garbage. Call [facility]: [phone] to be sure your drugs can be [...] aware that I should contact my doctor. Patient/Restaurant Maintenance Technician Signature: Date/Time: Relationship to Patient: Witness Name/Signature: Date/Time: [facility] 02-17-2023 Note ORIGINAL EXAMINATION: CT HEAD [...] or acute ischemic infarct is demonstrated. The lanacster-white matter junctions are preserved. No space occupying [...] Date: 02/17/2023 9:26:46 AM Ordering Provider: DAQUAN [facility] 01-27-2023 Note . MICRO - Microbiology [...] Locations *1: This test was performed at: [facility], [address] [place] [address], [id number] , [facility] ([place]) 01-23-2023 Hospital Discharge instructions Patient Education 01/23/2023 12:17:26 AA Dara LOFTON (CUSTOM) Result type:CT Abd/Pelvis w/ IV Contrast Only Result date:January 23, 2023 11:34 EST Result status:Auth (Verified) Result title:CT ABD/PELVIS W/ IV CONTRAST ONLY Performed by:ORLIN TRUJILLO MD on January 23, 2023 11:08 EST Cosigned by:ORLIN TRUJILLO MD Verified by:ORLIN TRUJILLO MD on January 23, 2023 11:34 EST Encounter info:[id number], [facility], Emergency, 01/23/2023 - Contributor system:Itineris * Final Report * [id number] ORIGINAL EXAMINATION: CT OF THE ABDOMEN AND [...] Document Reviewed: 02/15/2014 ExitCare Patient Information 2015 [employer] [facility]. This information is not intended to replace [...] or as directed by your healthcare provider 6149-4431 The [employer]. [address] [place] [address]. All rights reserved. This information is not [...] foods again, start with small amounts of nkmr-uq-vgqard, low-fat foods. These include apple sauce, toast, [...] increase stomach acid. Don't use aspirin or iyfe-bcb-zxrjowe pain and fever medicines, if possible. This includes nonsteroidal anti-inflammatory drugs (NSAIDs). Lose excess weight. Finish eating at least 2 hours before you go to bed or lie down. Raise the head of your bed. 2653-2796 The [employer]. [address] [place] [address], [place] [address]. All rights reserved. This information is not intended as a substitute for professional medical care. Always follow your healthcare professional's instructions. Follow Up Care 01/23/2023 09:05:26 With:Go to emergency room if symptoms worsen Address:Unknown When:2-4 days With:ARAM JOHNSON DO Address: [address] [place] [phone]- [phone] When:2-4 days [facility] 01-23-2023 Emergency department Discharge summary Discharge Instructions Thank you for allowing [facility] to assist you with your healthcare needs. [...] JOHNSON DO When Within 2-4 days Where: [address] [place] [phone]- [phone] Allergies Naprosyn (Nausea) aspirin (NAUSEA) Medications Please [...] Vaginal bleeding Duration: 90 Days Managed by OB-PARKING ENFORCEMENT OFFICER Unchanged nortriptyline (nortriptyline 50 mg oral capsule) [...] may report side effects to FDA at 7-454-BQE-8508. What other drugs will affect cephalexin? Tell your doctor about all your other medicines, especially: metformin; or probenecid. This list is not complete. Other drugs may affect cephalexin, including prescription and pozi-lxm-bsidzat medicines, vitamins, and herbal products. Not all [...] to ensure that the information provided by [employer]. ('Multum') is accurate, up-to-date, and complete, but no guarantee is made to that effect. Drug information contained herein may be time sensitive. [employer] information has been compiled for use by healthcare practitioners and consumers in the [place] and therefore [employer] does not warrant that uses outside of the [place] are appropriate, unless specifically indicated otherwise. [employer]'s drug information does not endorse drugs, diagnose patients or recommend therapy. [employer] drug information is an informational resource designed [...] effective or appropriate for any given patient. [facility] does not assume any responsibility for any aspect of healthcare administered with the aid of information [facility] provides. The information contained herein is not intended to cover all possible uses, directions, precautions, warnings, drug interactions, allergic reactions, or adverse effects. If you have questions about the drugs you are taking, check with your doctor, nurse or pharmacist. Copyright 8371-1195 [employer]. Version: 12.. Revision Date: 09/29/2022. Education Materials Result type: CT Abd/Pelvis w/ IV Contrast Only Result date: January 23, 2023 11:34 EST Result status: Auth (Verified) Result title: CT ABD/PELVIS W/ IV CONTRAST ONLY Performed by: ORLIN TRUJILLO MD on January 23, 2023 11:08 EST Cosigned by: ORLIN TRUJILLO MD Verified by: ORLIN TRUJILLO MD on January 23, 2023 11:34 EST Encounter info: [id number], [facility] - Contributor system: Itineris * Final Report * [id number] ORIGINAL EXAMINATION: CT OF THE ABDOMEN AND [...] Document Reviewed: 02/15/2014 ExitCare Patient Information 2015 [facility]. This information is not intended to replace [...] or as directed by your healthcare provider 2303-1042 The [employer]. [address] [place] [address], [place] [address]. All rights reserved. This information is not [...] foods again, start with small amounts of jdwx-ku-ricqld, low-fat foods. These include apple sauce, toast, [...] increase stomach acid. Don't use aspirin or zqya-lfc-kvkgrfr pain and fever medicines, if possible. This includes nonsteroidal anti-inflammatory drugs (NSAIDs). Lose excess weight. Finish eating at least 2 hours before you go to bed or lie down. Raise the head of your bed. [phone] The [employer]. [address] [place] [address], [place] [address]. All rights reserved. This information is not intended as a substitute for professional medical care. Always follow your healthcare professional's instructions. Additional Information VACCINATE! IT SAVES LIVES! Members of the community who have not yet received the COVID-19 vaccine and would like to receive it can visit one of [facility] vaccine clinics. There are many vaccine clinic locations within the [facility]. For locations and available times, please visit www.gettheshot.coronavirus.[place]. gov/. It is important to note that some COVID mobile vaccine clinics are held outdoors and may be canceled in rainy or stormy conditions. To learn more about pediatric vaccinations (ages 5-11), we invite you to visit the [facility] webpage. https://www.[facility].org/p ages/3367-Oeqjo-Mwxsiabomdo-Freq vailem-Kpbhb-Yutuikfop.html To learn more about the COVID-19 vaccine, we invite you to visit the CDC website for a list of frequently asked questions. https://www.cdc.gov/coronavirus/ 2019-ncov/vaccines/faq.html [facility] Patient Portal Access Instructions: Stay connected with your healthcare team and access your personal medical information anytime with the [facility] Patient Portal. If you would like a full copy of your medical records please contact the [facility] Medical Records Department Tuesday through Tuesday between 8a.m. and 4:30p.m. Please follow the directions below to access the portal: 1.Access the email account you provided upon registration to the [facility].2.Look for an invitation email from [facility].3.Open the email and access the invitation link: Accept Invitation to [facility]te4.Fill in the required lee to create your account. Sign into [email or web address] with your username and password that you [...] you will allow to register on the [facility] Patient Portal for access to your information. You can also access the [facility] Patient Portal on the OutTrippin. Simply click on Health Records under Health Data and then click on the [employer] logo. HOW TO SAFELY DISPOSE OF PRESCRIPTION [...] Call your local pharmacy or go to http://Huddlebuy.Bex/8X7Tx2z to find one close to you.3.Make use of household items: Use cat litter or old coffee grounds to dispose medications if other options are not available. Mix your drugs with these household products, seal them in an airtight container and throw it into the garbage. Call [facility]: [phone] to be sure your drugs can be [...] reviewed and explained to me and I,KAMALA CARMEN understand my current condition and have read and understand these discharge instructions. I have received a written copy of the plan/instructions. If I have questions, I am aware that I should contact my doctor. Patient/Restaurant Maintenance Technician Signature: Date/Time: Relationship to Patient: Witness Name/Signature: Date/Time: [facility] 01-23-2023 Note ORIGINAL EXAMINATION: XR foot [...] Date: 01/23/2023 12:06:18 PM [facility] Note ORIGINAL EXAMINATION: CT OF THE [...] Sign Date: 01/23/2023 12:02:52 PM Ordering Provider: [facility] 01-18-2023 Miscellaneous Notes Addended by: SATNAM RODRIGUEZ on: 01/18/2023 10:48 AM Modules accepted: Orders documented in this encounter [facility] 01-18-2023 Note HNO ID: [id number] Author: Satnam Rodriguez APRN.CNP Service: ? Author Type: Nurse Practitioner Type: Progress Notes Filed: 01/18/2023 8:15 AM Note Text: Subjective HPI HPI May Isaac is a 52 year old female [...] s/s. - BASIC METABOLIC PNL Satnam Rodriguez APRN.ADULT CARE PROVIDER [facility] 01-18-2023 Instructions Satnam Rodriguez APRN.ADULT CARE PROVIDER - 01/18/2023 8:00 AM EST ASSESSMENT/PLAN: 1. Leg cramps - ICD9: 729.82, ICD10: R25.2 If labs ok I will order magnesium Follow up with primary care provider Urgent follow up for worsening symptoms. - BASIC METABOLIC PNL documented in this encounter [facility] 01-18-2023 History of Present illness Narrative Subjective HPI HPI Kamala Carmen is a 52 year old female who [...] s/s. - BASIC METABOLIC PNL Satnam Rodriguez APRN.ADULT CARE PROVIDER documented in this encounter [facility] 01-17-2023 Note HNO ID: [id number] Author: Whitley Miller APRN.ADULT CARE PROVIDER Service: ? Author Type: Nurse Practitioner Type: Progress Notes Filed: 01/17/2023 10:21 AM Note Text: Subjective Headache Pertinent negatives include no fever. Kamala Carmen is a 52 year old female who presents with a headache for the past 8 hours. She took tylenol. She denies fever, chills. She denies any associated URI symptoms. She has not had any visual disturbances. Rates pain /10, states it is in her forehead. Review [...] - Discussed expected course of illness Whitley Miller APRN.CNP [facility] 01-17-2023 Instructions Whitley Miller APRN.CNP - 01/17/2023 10:20 AM EST ASSESSMENT/PLAN: [...] - Discussed expected course of illness Whitley Miller APRN.CNP HEADACHE GENERAL INFORMATION: Almost everyone has a headache occasionally. Most headaches are caused by tension, eye strain, or emotional upset. Headaches can also occur with many medical illnesses. They may be a side effect of some medications. A headache that occurs without other symptoms and only lasts a few hours probably isn't a cause for concern. INSTRUCTIONS: 1. You may use nqff-lfc-dqhabct pain medication such as acetaminophen, ibuprofen, or [...] arms or legs. documented in this encounter [facility] 01-17-2023 History of Present illness Narrative Subjective Headache Pertinent negatives include no fever. Kamala Camren is a 52 year old female who [...] - Discussed expected course of illness Whitley Miller APRN.ADULT CARE PROVIDER documented in this encounter [facility] 01-10-2023 Hospital Discharge instructions Patient Education 01/10/2023 [...] relieved by rest and mild pain reliever 0911-5436 The [employer]. [address] [place] [address]. All rights reserved. This information is not [...] Swelling, pain or redness in one leg 8147-3630 The [employer]. [address] [place] [address]. All rights reserved. This information is not intended as a substitute for professional medical care. Always follow your healthcare professional's instructions. Follow Up Care 01/10/2023 08:29:14 With:PHYSICIAN, NOT RECORDED Address:Unknown When:2-4 days With:Follow up with primary care provider Address:Unknown When:2-4 days With:Call HALIMA Mercedes Pt. Refferral [phone] Address:Unknown When:2-4 days With:Go to emergency room if symptoms worsen Address:Unknown When:2-4 days [facility] 01-10-2023 Note Discharge Instructions Thank you for allowing [facility] to assist you with your healthcare needs. [...] Up with Call HALIMA Mercedes Pt. Refferral [phone] When Within 2-4 days Follow Up with [...] Vaginal bleeding Duration: 90 Days Managed by OB-PARKING ENFORCEMENT OFFICER Unchanged nortriptyline (nortriptyline 50 mg oral capsule) [...] may report side effects to FDA at 9-168-SAI-9025. What other drugs will affect lorazepam? Taking [...] may affect lorazepam. This includes prescription and yrin-uxy-egnxlwj medicines, vitamins, and herbal products. Not all [...] to ensure that the information provided by [employer]. ('Multum') is accurate, up-to-date, and complete, but no guarantee is made to that effect. Drug information contained herein may be time sensitive. [employer] information has been compiled for use by healthcare practitioners and consumers in the [place] and therefore [employer] does not warrant that uses outside of the [place] are appropriate, unless specifically indicated otherwise. [employer] drug information does not endorse drugs, diagnose patients or recommend therapy. [employer] drug information is an informational resource designed [...] effective or appropriate for any given patient. [employer] does not assume any responsibility for any aspect of healthcare administered with the aid of information [employer] provides. The information contained herein is not intended to cover all possible uses, directions, precautions, warnings, drug interactions, allergic reactions, or adverse effects. If you have questions about the drugs you are taking, check with your doctor, nurse or pharmacist. Copyright 3889-1218 [employer]to[employer]. Version: 10.04. Revision Date: 07/19/2022. Education Materials [...] relieved by rest and mild pain reliever 1190-1970 The [employer]. [address] [facility], [place] [address]. All rights reserved. This information is not [...] Swelling, pain or redness in one leg 8323-4343 The [employer]. [address] [place], [place] [address]. All rights reserved. This information is not intended as a substitute for professional medical care. Always follow your healthcare professional's instructions. Additional Information VACCINATE! IT SAVES LIVES! Members of the community who have not yet received the COVID-19 vaccine and would like to receive it can visit one of [facility] vaccine clinics. There are many vaccine clinic locations within the [facility]. For locations and available times, please visit www.gettheshot.coronavirus.[place]. gov/. It is important to note that some COVID mobile vaccine clinics are held outdoors and may be canceled in rainy or stormy conditions. To learn more about pediatric vaccinations (ages 5-11), we invite you to visit the [facility] webpage. https://www.[facility].org/p ages/6844-Kxaos-Onybilrhmci-Freq stpgvs-Ertyh-Ntpsmgdus.html To learn more about the COVID-19 vaccine, we invite you to visit the CDC website for a list of frequently asked questions. https://www.cdc.gov/coronavirus/ 2019-ncov/vaccines/faq.html [facility] Patient Portal Access Instructions: Stay connected with your healthcare team and access your personal medical information anytime with the [facility] Patient Portal. If you would like a full copy of your medical records please contact the [facility] Medical Records Department Tuesday through Tuesday between 8a.m. and 4:30p.m. Please follow the directions below to access the portal: 1.Access the email account you provided upon registration to the [facility].2.Look for an invitation email from [facility].3.Open the email and access the invitation link: Accept Invitation to [facility]te4.Fill in the required lee to create your account. Sign into [email or web address] with your username and password that you [...] you will allow to register on the [facility] Patient Portal for access to your information. You can also access the [facility] Patient Portal on the Recurve helder. Simply click on Health Records under Health Data and then click on the Light[employer] logo. HOW TO SAFELY DISPOSE OF PRESCRIPTION [...] Call your local pharmacy or go to http://Huddlebuy.Bex/2A8Bm3o to find one close to you.3.Make use of household items: Use cat litter or old coffee grounds to dispose medications if other options are not available. Mix your drugs with these household products, seal them in an airtight container and throw it into the garbage. Call [facility]: [phone] to be sure your drugs can be [...] reviewed and explained to me and I,KAMALA CARMEN L understand my current condition and have read and understand these discharge instructions. I have received a written copy of the plan/instructions. If I have questions, I am aware that I should contact my doctor. Patient/Restaurant Maintenance Technician Signature: Date/Time: Relationship to Patient: Witness Name/Signature: Date/Time: [facility] 01-10-2023 Note ORIGINAL EXAMINATION: ONE XRAY [...] 01/10/2023 9:28:16 AM Ordering Provider: SHEELA GARRIDO [facility] 01-10-2023 Note Sinus rhythm Borderline left axis deviation Low voltage, precordial leads Abnormal R-wave progression, late transition Abnormal T, consider ischemia, diffuse leads Prolonged QT interval Somewhat similar to EKG December 24, 2022. Electronic Signature: SHEELA GARRIDO MD 01/10/2023 09:38:48 [facility] 12-27-2022 Note . MICRO - Microbiology [...] Locations *1: This test was performed at: [facility], [address] [place] [address], [phone] , [facility] ([place]) 12-24-2022 Note ORIGINAL EXAMINATION: CT OF THE [...] Date: 12/24/2022 9:26:09 PM Ordering Provider: FABIAN MOLINA [facility] 12-24-2022 Note ORIGINAL EXAMINATION: CTA OF THE [...] 12/24/2022 9:27:46 PM Ordering Provider: FABIAN MOLINA [facility] 12-15-2022 Miscellaneous Notes Patient notified and verbalized understanding of instructions given.Inez Stoll LPN Please call patient and let her know that Macrobid twice a day for 5 days is being called in for urine culture results which are mildly contaminated. If symptoms do not improve after antibiotic. Please have patient call primary care provider documented in this encounter [facility] 12-15-2022 Miscellaneous Notes Patient identified by name and date of . Patient advised of lab results. She is currently taking Levothyroxine 175 mcg. She is advised to see her PCP for medication adjustment. [facility] does not manage chronic disease medications. Labs are printed for her and left at [facility] desk for pickup since her PCP is not in [facility] system. Urine culture is still pending; if it shows any bacterial growth an antibiotic will be sent to her pharmacy. Whitley Miller APRN.MARIA TERESA documented in this encounter [facility] 12-14-2022 Note HNO ID: [id number] Author: Whitley Miller APRN.CNP Service: ? Author Type: Nurse Practitioner Type: Progress Notes Filed: 12/14/2022 11:56 AM Note Text: This note was created using NoteWriter. Subjective Kamala Carmen is a 52 year old female. Patient [...] - CBC + DIFF E John [employer] RECRUITING MANAGER Student (more content not included)... [facility] 12-14-2022 Instructions Whitley Miller APRN.ADULT CARE PROVIDER - 12/14/2022 11:56 AM EDT ASSESSMENT/PLAN: 1. [...] - CBC + DIFF E John [employer] RECRUITING MANAGER Student TEACHING PROVIDER (Physician/PA/TOLL GATE TENDER) NOTE OF PERSONAL INVOLVEMENT IN CARE: I have personally seen and examined the patient and performed the medical decision-making components. I have reviewed the Advanced Practice Registered Nurse (TOLL GATE TENDER) Student's documentation and verified the findings in the note as written. Any additions or changes are noted in bold/italics. Signature: Whitley Miller Date: 12/14/2022 Time: 11:55 AM documented in this encounter [facility] 12-14-2022 History of Present illness Narrative Images from the original note were not included. This note was created using MC10. Subjective Kamala Carmen is a 52 year old female. Patient [...] - CBC + DIFF E John [employer] RECRUITING MANAGER Student TEACHING PROVIDER (Physician/ROBLES/MICAH) NOTE OF PERSONAL INVOLVEMENT IN CARE: I have personally seen and examined the patient and performed the medical decision-making components. I have reviewed the Advanced Practice Registered Nurse (TOLL GATE TENDER) Student's documentation and verified the findings in the note as written. Any additions or changes are noted in bold/italics. Signature: Whitley Miller Date: 12/14/2022 Time: 11:55 AM documented in this encounter [facility] 11-20-2022 Evaluation + Plan note Future Scheduled TestsIron Level 11/20/22Thyroid Stimulating Hormone 11/20/22Free T4 11/20/22A1C Hemoglobin 11/20/22Complete Blood Count 11/20/22Lipid Profile 11/20/22Albumin/Creatinine Ratio, Random Urine 11/20/22Microalbumin Level Urine 05/17/22Vitamin D Level 11/20/22Complete Metabolic Panel 11/20/22TIBC 11/20/22 [facility] 11-16-2022 Note HNO ID: [id number] Author: Dion Escobar PA-C Service: ? Author Type: Physician Carpet Inspector Finished Type: Progress Notes Filed: 11/16/2022 12:55 PM Note Text: This note was created using [employer]riter. Subjective Kamala Carmen is a 52 year old female. HPI Patient presents with full complaints. She was in the [place] emergency department November 11 and had a [...] and she has an open wound. No djyt-mrt-agigdnt medicines tried or bandages. Patient also complaining [...] of bronchitis. Discus (more content not included)... [facility] 11-16-2022 History of Present illness Narrative Images from the original note were not included. This note was created using NoteWriter. Subjective Kamala Carmen is a 52 year old female. HPI Patient presents with full complaints. She was in the [place] emergency department November 11 and had a [...] and she has an open wound. No hngx-lgp-vsncaas medicines tried or bandages. Patient also complaining [...] Dion Escobar PA-C documented in this encounter [facility] 10-06-2022 Note . MICRO - Microbiology PROCEDURE: [...] Locations *1: This test was performed at: [facility], [address] [place] [address], [address] , [facility] ([place]) 10-03-2022 Hospital Discharge instructions Patient Education 10/03/2022 [...] Swelling, pain or redness in one leg 4615-6388 The [employer]. [address] [place] [address]. All rights reserved. This information is not [...] swelling in the outer vaginal area (labia) 1354-7829 [employer]. [address] [place] [address]. All rights reserved. This information is not intended as a substitute for professional medical care. Always follow your healthcare professional's instructions. [facility] 10/03/2022 13:22:37 With:JAI GANT DO Address: [address] [facility] [place] [phone] When:2-4 days Comments:Schedule appointment as soon as possible [facility] 10-03-2022 Emergency department Discharge summary Discharge Instructions Thank you for allowing [facility] to assist you with your healthcare needs. [...] Schedule appointment as soon as possible Where: [address] [place] [address] [place] [address] [phone] Allergies Naprosyn (Nausea) aspirin (NAUSEA) Medications Please [...] Vaginal bleeding Duration: 90 Days Managed by OB-PARKING ENFORCEMENT OFFICER Unchanged nortriptyline (nortriptyline 50 mg oral capsule) [...] Swelling, pain or redness in one leg [phone] [employer]. [address] [place] [address]. All rights reserved. This information is not [...] swelling in the outer vaginal area (labia) 3561-3808 [employer]. [address] [place] [address], [place] [address]. All rights reserved. This information is not intended as a substitute for professional medical care. Always follow your healthcare professional's instructions. Additional Information VACCINATE! IT SAVES LIVES! Members of the community who have not yet received the COVID-19 vaccine and would like to receive it can visit one of [facility] vaccine clinics. There are many vaccine clinic locations within the [facility]. For locations and available times, please visit www.gettheshot.coronavirus.[place]. gov/. It is important to note that some COVID mobile vaccine clinics are held outdoors and may be canceled in rainy or stormy conditions. To learn more about pediatric vaccinations (ages 5-11), we invite you to visit the [facility] webpage. https://www.Sonomas.org/p ages/4263-Rkyam-Zfynunrbqxb-Freq kgsbpn-Waxyl-Ocvkvtrem.html To learn more about the COVID-19 vaccine, we invite you to visit the CDC website for a list of frequently asked questions. https://www.cdc.gov/coronavirus/ 2019-ncov/vaccines/faq.html [facility] Patient Portal Access Instructions: Stay connected with your healthcare team and access your personal medical information anytime with the [facility] Patient Portal. If you would like a full copy of your medical records please contact the [facility] Medical Records Department Tuesday through Tuesday between 8a.m. and 4:30p.m. Please follow the directions below to access the portal: 1.Access the email account you provided upon registration to the [facility].2.Look for an invitation email from [facility].3.Open the email and access the invitation link: Accept Invitation to [facility]4.Fill in the required lee to create your account. Sign into [email or web address] with your username and password that you [...] you will allow to register on the [facility] Patient Portal for access to your information. You can also access the [facility] Patient Portal on the OutTrippin. Simply click on Health Records under Health Data and then click on the [employer] logo. HOW TO SAFELY DISPOSE OF PRESCRIPTION [...] Call your local pharmacy or go to http://Huddlebuy.Bex/9I2Qn7i to find one close to you.3.Make use of household items: Use cat litter or old coffee grounds to dispose medications if other options are not available. Mix your drugs with these household products, seal them in an airtight container and throw it into the garbage. Call [facility]: [phone] to be sure your drugs can be [...] reviewed and explained to me and I,KAMALA CARMEN understand my current condition and have read and understand these discharge instructions. I have received a written copy of the plan/instructions. If I have questions, I am aware that I should contact my doctor. Patient/Restaurant Maintenance Technician Signature: Date/Time: Relationship to Patient: Witness Name/Signature: Date/Time: [facility] 10-03-2022 Note ORIGINAL EXAMINATION: CTA OF [...] Sign Date: 10/03/2022 3:25:19 PM Ordering Provider: ANGIE CRUZ [facility] 10-03-2022 Note ORIGINAL EXAMINATION: CT OF THE [...] Sign Date: 10/03/2022 3:27:50 PM Ordering Provider: [facility] 10-03-2022 Note ORIGINAL EXAMINATION: ONE XRAY VIEW [...] Sign Date: 10/03/2022 2:58:22 PM Ordering Provider: [facility] 10-03-2022 Note Sinus tachycardia Electronic Signature: SHEELA GARRIDO MD 10/03/2022 13:53:26 [facility] 09-23-2022 Hospital Discharge instructions Patient Education [...] worsens and is not improved with elevation. 0836-5416 The [employer]. [address] [place] [address]. All rights reserved. This information is not intended as a substitute for professional medical care. Always follow your healthcare professional's instructions. [facility] 09/22/2022 23:40:44 With:LUZ ELENA BHAT MD Address: [facility] [place] [address]- When:2-4 days [facility] 09-23-2022 Note Discharge Instructions Thank you for allowing [facility] to assist you with your healthcare needs. The following is important discharge information regarding your hospital visit. Diagnosis from Today's Visit Foot pain-swelling WILSON - Headache SOB - Shortness of breath What to Do Next Instructions from Your Care Team No qualifying data available. Post Acute Orders No qualifying data available. You Need to Schedule the Following Appointments Follow Up with LUZ ELENA BHAT MD When Within 2-4 days Where: [facility] [place] [address]- Allergies Naprosyn (Nausea) aspirin (NAUSEA) Medications [...] Vaginal bleeding Duration: 90 Days Managed by OB-PARKING ENFORCEMENT OFFICER Unchanged nortriptyline (nortriptyline 50 mg oral capsule) [...] worsens and is not improved with elevation. 5611-4454 The [employer]. [address] [place] [address], [place] [address]. All rights reserved. This information is not intended as a substitute for professional medical care. Always follow your healthcare professional's instructions. Additional Information VACCINATE! IT SAVES LIVES! Members of the community who have not yet received the COVID-19 vaccine and would like to receive it can visit one of [facility] vaccine clinics. There are many vaccine clinic locations within the [facility]. For locations and available times, please visit www.gettheshot.coronavirus.[place]. gov/. It is important to note that some COVID mobile vaccine clinics are held outdoors and may be canceled in rainy or stormy conditions. To learn more about pediatric vaccinations (ages 5-11), we invite you to visit the [employer] webpage. https://www.Sonomas.org/p ages/3790-Ziuqr-Frjqqcmxryh-Freq ypnjli-Slats-Jvhcbuzfm.html To learn more about the COVID-19 vaccine, we invite you to visit the CDC website for a list of frequently asked questions. https://www.cdc.gov/coronavirus/ 2019-ncov/vaccines/faq.html [facility] Patient Portal Access Instructions: Stay connected with your healthcare team and access your personal medical information anytime with the [facility] Patient Portal. If you would like a full copy of your medical records please contact the [facility] Medical Records Department Tuesday through Tuesday between 8a.m. and 4:30p.m. Please follow the directions below to access the portal: 1.Access the email account you provided upon registration to the hospital.2.Look for an invitation email from [facility].3.Open the email and access the invitation link: Accept Invitation to [facility]4.Fill in the required lee to create your account. Sign into [email or web address] with your username and password that you [...] you will allow to register on the [facility] Patient Portal for access to your information. You can also access the [facility] Patient Portal on the OutTrippin. Simply click on Health Records under Health Data and then click on the [employer] logo. HOW TO SAFELY DISPOSE OF PRESCRIPTION [...] Call your local pharmacy or go to http://Huddlebuy.Bex/7J9Yl1u to find one close to you.3.Make use of household items: Use cat litter or old coffee grounds to dispose medications if other options are not available. Mix your drugs with these household products, seal them in an airtight container and throw it into the garbage. Call [facility]: [phone] to be sure your drugs can be [...] reviewed and explained to me and I,KAMALA CARMEN understand my current condition and have read and understand these discharge instructions. I have received a written copy of the plan/instructions. If I have questions, I am aware that I should contact my doctor. Patient/Restaurant Maintenance Technician Signature: Date/Time: Relationship to Patient: Witness Name/Signature: Date/Time: [facility] 09-23-2022 Note ORIGINAL EXAMINATION: ONE XRAY [...] Date: 09/23/2022 12:30:42 AM Ordering Provider: [facility] 08-17-2022 Note HNO ID: [id number] Author: Whitley Miller APRN.ADULT CARE PROVIDER Service: ? Author Type: Nurse Practitioner Type: Progress Notes Filed: 08/17/2022 2:48 PM Note Text: Subjective HPI Kamala Carmen is a 52 year old female who presents with a headache and nausea. She was seen here on 08/13 for a fall that occurred 2 days prior. She was referred to ER. Patient states she went to [facility] ER for treatment, had a CT scan [...] - Discussed expected course of illness Whitley Miller APRN.MARIA TERESA [facility] 08-17-2022 Instructions Whitley Miller APRN.MARIA TERESA - 08/17/2022 2:48 PM EDT ASSESSMENT/PLAN: 1. [...] - Discussed expected course of illness Whitley Miller APRN.ADULT CARE PROVIDER documented in this encounter [facility] 08-17-2022 History of Present illness Narrative Subjective HPI Kamala Carmen is a 52 year old female who presents with a headache and nausea. She was seen here on 08/13 for a fall that occurred 2 days prior. She was referred to ER. Patient states she went to [facility] ER for treatment, had a CT scan [...] - Discussed expected course of illness Whitley Miller APRN.ADULT CARE PROVIDER documented in this encounter [facility] 08-13-2022 Hospital Discharge instructions Patient Education 08/13/2022 [...] splint gets wet, dry it with a hair or beauty salon assistant on a cool setting. Place an ice [...] doesn t get wet. You may use bqwh-rrc-zzleupc pain medicine to control pain, unless another [...] cast or splint develops cracks or breaks 2479-2319 The [employer]. [address] [place] [address]. All rights reserved. This information is not intended as a substitute for professional medical care. Always follow your healthcare professional's instructions. [facility] 08/13/2022 20:56:52 With:GEOFFREY PAGE MD Address: [address] [place] [address] & [place] [address]- [phone] When:2-4 days [facility] 08-13-2022 Note ORIGINAL EXAMINATION: CT OF [...] 08/13/2022 10:05:04 PM Ordering Provider: INA DICKSON [facility] 08-13-2022 Note Discharge Instructions Thank you for allowing [facility] to assist you with your healthcare needs. The following is important discharge information regarding your hospital visit. Diagnosis from Today's Visit Fall Fibula fracture What to Do Next Instructions from Your Care Team Discharge Home Equipment - Ordered -- Crutches, month(s), 08/13/22 21:58:00 EDT Discharge Home Equipment - Ordered -- Walking Boot, 99 month(s), 08/13/22 21:58:00 EDT Post Acute Orders No qualifying data available. You Need to Schedule the Following Appointments Follow Up with GEOFFREY PAGE MD When Within 2-4 days Where: [address] [facility] [place] [phone] Allergies Naprosyn (Nausea) aspirin (NAUSEA) Medications Please [...] Vaginal bleeding Duration: 90 Days Managed by OB-PARKING ENFORCEMENT OFFICER Unchanged nortriptyline (nortriptyline 50 mg oral capsule) [...] splint gets wet, dry it with a hair or beauty salon assistant on a cool setting. Place an ice [...] doesn t get wet. You may use qzba-fxw-lcimfaa pain medicine to control pain, unless another [...] cast or splint develops cracks or breaks 9540-8579 The [employer]. [address] [place] [address]. All rights reserved. This information is not intended as a substitute for professional medical care. Always follow your healthcare professional's instructions. Additional Information VACCINATE! IT SAVES LIVES! Members of the community who have not yet received the COVID-19 vaccine and would like to receive it can visit one of [facility] vaccine clinics. There are many vaccine clinic locations within the [facility]. For locations and available times, please visit www.gettheshot.coronavirus.[place]. gov/. It is important to note that some COVID mobile vaccine clinics are held outdoors and may be canceled in rainy or stormy conditions. To learn more about pediatric vaccinations (ages 5-11), we invite you to visit the [facility] webpage. https://www.[facility].org/p ages/0199-Bybyx-Kvlmiynzaki-Freq etlpad-Chepy-Cmwavlykw.html To learn more about the COVID-19 vaccine, we invite you to visit the CDC website for a list of frequently asked questions. https://www.cdc.gov/coronavirus/ 2019-ncov/vaccines/faq.html [facility] Patient Portal Access Instructions: Stay connected with your healthcare team and access your personal medical information anytime with the [facility] Patient Portal. If you would like a full copy of your medical records please contact the [facility] Medical Records Department Tuesday through Tuesday between 8a.m. and 4:30p.m. Please follow the directions below to access the portal: 1.Access the email account you provided upon registration to the [facility].2.Look for an invitation email from [facility].3.Open the email and access the invitation link: Accept Invitation to [facility]4.Fill in the required lee to create your account. Sign into [email or web address] [employer]mic with your username and password that you [...] you will allow to register on the [facility] Patient Portal for access to your information. You can also access the [facility] Patient Portal on the OutTrippin. Simply click on Health Records under Health [...] Call your local pharmacy or go to http://Huddlebuy.Bex/5V7Ni2f to find one close to you.3.Make use of household items: Use cat litter or old coffee grounds to dispose medications if other options are not available. Mix your drugs with these household products, seal them in an airtight container and throw it into the garbage. Call [facility]: [phone] to be sure your drugs can be [...] reviewed and explained to me and I,KAMALA CARMEN understand my current condition and have read and understand these discharge instructions. I have received a written copy of the plan/instructions. If I have questions, I am aware that I should contact my doctor. Patient/Restaurant Maintenance Technician Signature: Date/Time: Relationship to Patient: Witness Name/Signature: Date/Time: [facility] 08-13-2022 Note ORIGINAL EXAMINATION: TWO XRAY [...] Sign Date: 08/13/2022 10:01:45 PM Ordering Provider: [facility] 08-13-2022 Note ORIGINAL EXAMINATION: XRAY VIEWS OF [...] Sign Date: 08/13/2022 9:51:40 PM Ordering Provider: [facility] 08-13-2022 Note ORIGINAL EXAMINATION: CT OF THE [...] Sign Date: 08/13/2022 10:05:04 PM Ordering Provider: [facility] 08-13-2022 Note ORIGINAL EXAMINATION: TWO XRAY VIEWS [...] Sign Date: 08/13/2022 10:01:45 PM Ordering Provider: [facility] 08-13-2022 Note ORIGINAL EXAMINATION: XRAY VIEWS OF [...] Sign Date: 08/13/2022 9:51:40 PM Ordering Provider: [facility] 08-13-2022 Note HNO ID: [id number] Author: Satnam Rodriguez APRN.ADULT CARE PROVIDER Service: ? Author Type: Nurse Practitioner Type: Progress Notes Filed: 08/13/2022 7:30 PM Note Text: Patient triaged at [facility]. Here today with fall 2 days ago, hit head, having h/a as well as multi joint pain. I advised patient to go to ER. Unclear what ER patient will go to. [facility] 08-13-2022 History of Present illness Narrative Patient triaged at [facility]. Here today with fall 2 days ago, hit head, having h/a as well as multi joint pain. I advised patient to go to ER. Unclear what ER patient will go to. documented in this encounter [facility] 08-05-2022 Note HNO ID: [id number] Author: RT Christiano(R) Service: ? Author Type: Live Ammunition Inspector Type: Progress Notes Filed: 08/05/2022 6:34 PM Note Text: Radiology Service Progress Note PATIENT NAME: Kamala Carmen DATE OF SERVICE: August 05, 2022 TIME: [...] IV DATA: Not applicable SIGNED BY: RT Christiano(R) August 05, 2022 6:22 PM [facility] 08-05-2022 Note HNO ID: [id number] Author: Whitley Miller APRN.MARIA TERESA Service: ? Author Type: Nurse Practitioner Type: Progress Notes Filed: 08/05/2022 6:50 PM Note Text: Subjective HPI Kamala Carmen is a 52 year old female who [...] are noted. IMPRESSION: No acute osseous abnormality Wardrobe Stylist: ADAM Transcribe Date/Time: Aug 05 2022 6:39P [...] - Discussed expected course of illness Whitley Miller APRN.MARIA TERESA [facility] 07-28-2022 Note HNO ID: [id number] Author: Dion Escobar PA-C Service: ? Author Type: Physician Carpet Inspector Finished Type: Progress Notes Filed: 07/28/2022 11:45 AM Note Text: This note was created using MC10. Subjective Kamala Carmen is a 51 year old female. HPI [...] numbness or tingling. She has taken Advil givp-rhx-fhzmrne for pain. Review of Systems Constitutional: Negative. [...] ICD9: 848.9, ICD10: T14.8XXA Dion Escobar PA-C [facility] 07-28-2022 Note HNO ID: [id number] Author: RT Mimi(R) Service: Radiology Author Type: Technologist Type: Progress Notes Filed: 07/28/2022 10:29 AM Note Text: Radiology Service Progress Note PATIENT NAME: Kamala Carmen DATE OF SERVICE: July 28, 2022 TIME: [...] RT Mimi(R) July 28, 2022 10:10 AM [facility] 07-28-2022 History of Present illness Narrative This note was created using [employer]. Subjective Kamala Carmen is a 51 year old female. HPI [...] numbness or tingling. She has taken Advil igwp-iby-xhhxekw for pain. Review of Systems Constitutional: Negative. [...] Dion Escobar PA-C documented in this encounter [facility] 05-18-2022 Note HNO ID: [id number] Author: Satnam Rodriguez APRN.ADULT CARE PROVIDER Service: ? Author Type: Nurse Practitioner Type: Progress Notes Filed: 05/18/2022 4:22 PM Note Text: Subjective HPI HPI Kamala Carmen is a 51 year old female who [...] DOXYCYCLINE MONOHYDRATE 100 MG TABLET Satnam Rodriguez APRN.MARIA TERESA [facility] 05-04-2022 Note HNO ID: [id number] Author: Dion Escobar PA-C Service: ? Author Type: Physician Carpet Inspector Finished Type: Progress Notes Filed: 05/04/2022 4:03 PM Note Text: This note was created using [employer]riter. Subjective Kamala Carmen is a 51 year old female. HPI [...] in the emergency department. Patient went to [facility]. Report given via ER passport. Dion Escobar PA-C [facility] 05-04-2022 History of Present illness Narrative Images from the original note were not included. This note was created using MC10. Subjective Kamala Carmen is a 51 year old female. HPI [...] in the emergency department. Patient went to [facility]. Report given via ER passport. Dion Escobar PA-C documented in this encounter [facility] 04-17-2022 Note HNO ID: [id number] Author: Jessica Mcintosh APRN.ADULT CARE PROVIDER Service: ? Author Type: Nurse Practitioner Type: Progress Notes Filed: 04/17/2022 1:41 PM Note Text: Subjective The history is provided by the patient and a relative. No american sign language teacher was used. HPI Kamala Carmen is a 51 year old female who [...] have confirmed and edited as necessary, the [facility] Review of Systems Constitutional: [...] detail warranting prompt ER evaluation. Jessica Mcintosh APRN.[facility] 04-17-2022 History of Present illness Narrative Images from the original note were not included. Subjective The history is provided by the patient and a relative. No american sign language teacher was used. HPI Kamala Carmen is a 51 year old female who [...] have confirmed and edited as necessary, the [facility] Review of Systems Constitutional: [...] Mcintosh APRN.MARIA TERESA documented in this encounter [facility] 02-26-2022 Miscellaneous Notes Patient notified.Inze Stoll LPN Negative for flu and covid please notify thank you documented in this encounter [facility] 02-25-2022 Influenza virus A and B RNA and SARS-CoV-2 (COVID-19) N gene panel IZZY+probe (Resp) COVID 19 RESULT: SARS-CoV-2 (Agent of COVID-19) Not Detected by RT-PCR or equivalent method. alexey QRQA-GeH-5_Clnrv [employer] (GARCIA)_EUA This test was developed and its performance characteristics determined by [facility]'s [facility] [place]. This test has been authorized by FDA under an Emergency Use Authorization (EUA). This test has been validated in accordance with the FDA's Guidance Document Policy for Diagnostics Testing in Laboratories Certified to Perform High Complexity Testing under CLIA prior to Emergency use Authorization for Coronavirus Disease 2019 during the Public Health Emergency issued on April 28, 2019. Test performed by [facility], [facility] [place], [facility] [place] [address]. INFLUENZA A PCR: Negative for Influenza A by RT-PCR INFLUENZA B PCR: Negative for Influenza B by RT-PCR [facility] Middle ear effusion, right- Primary Irritation of external ear canal, right [facility] Diagnosis Viral URI with cough- Primary Acute upper respiratory infections of unspecified site Exacerbation of asthma, unspecified asthma severity, unspecified whether persistent [facility] Diagnosis Post-nasal drainage- Primary Unspecified sinusitis (chronic) Neck pain Cervicalgia [facility] Diagnosis Cellulitis of skin- Primary Cellulitis and abscess of unspecified site [facility] Diagnosis Fall, initial encounter- Primary Unspecified site of sprain and strain [facility] Diagnosis Injury of head, initial encounter- Primary [facility] Diagnosis Headache, unspecified headache type- Primary Nausea Nausea alone [facility] Diagnosis Intertrigo- Primary Other specified erythematous condition Skin sore Unspecified disorder of skin and subcutaneous tissue Bronchitis Bronchitis, not specified as acute or chronic [facility] Diagnosis Acute midline low back pain without sciatica- Primary Fatigue, unspecified type [facility] Diagnosis Headache, unspecified headache type- Primary [facility] Diagnosis Leg cramps- Primary Cramp of limb documented in this encounter [facility] course Narrative No data available for this section [facility] Hospital Discharge instructions No data available for this section [facility] Progress note No data available for this section [facility] Reason for referral (narrative)* Diagnostic Procedure Only (Urgent) - Closed Specialty Diagnoses / Procedures Referred By Contac t Referred To Contact XR IMAGING Diagnoses Fall, initial encounter Procedures XR RIBS/CHEST 3V AP RIB/OBLS/CXR LEFT RADEX RIBS UNI W/POSTEROANT CH MINIMUM 3 VIEWS Dion Escobar PA-C [address] [place] [address] Xr Imaging Referral ID Status Reason Start Date Expiration Date V isits Requested Visits Authorized [id number] Closed Auto-Generate d Referral 07/28/2022 08/27/2023 1 1 * Diagnostic Procedure Only (Urgent) - Closed Specialty Diagnoses / Procedures Referred By Contac t Referred To Contact XR IMAGING Diagnoses Fall, initial encounter Procedures XR LUMBAR GENERAL 3V AP/LAT/L5-S1 RADEX SPINE LUMBOSACRAL 2/3 VIEWS Dion Escobar PA-C [address] [place] [address] Xr Imaging Referral ID Status Reason Start Date Expiration Date V isits Requested Visits Authorized [id number] Closed Auto-Generate d Referral 07/28/2022 08/27/2023 1 1 * Diagnostic Procedure Only (Urgent) - Closed Specialty Diagnoses / Procedures Referred By Contac t Referred To Contact XR IMAGING Diagnoses Fall, initial encounter Procedures XR CERV OTHER 4V AP/LAT/OBL RADEX SPINE CERVICAL 4 OR 5 VIEWS Dion Escobar PA-C [address] [place] [address] Xr Imaging Referral ID Status Reason Start Date Expiration Date V isits Requested Visits Authorized [id number] Closed Auto-Generate d Referral 07/28/2022 08/27/2023 1 1 * Diagnostic Procedure Only (Urgent) - Closed Specialty Diagnoses / Procedures Referred By Jose Miguel armenta Referred To Contact XR IMAGING Diagnoses Fall, initial encounter Procedures XR FOREARM GENERAL 2V AP/LAT LEFT RADEX FOREARM 2 VIEWS Dion Escobar PA-C [address] [place] [address] Xr Imaging Referral ID Status Reason Start Date Expiration Date V isits Requested Visits Authorized [id number] Closed Auto-Generate d Referral 07/28/2022 08/27/2023 1 1 [facility] note* YVAN Michael: PERFORM Event Display: Patient Summary Documents Authored Date: [id number] [facility] Reason for Referral Status Reason Specialty Diagnoses / Procedures Re ferred By Contact Referred To Contact Open Pulmonary Disease Diagnoses Dyspnea, unspecified type Procedures Full PFT Study With Bronchodilator Mariela Vasquez MD [address] [place] [id number] Assessments Diagnosis Dyspnea, unspecified type Health Concerns [...] 60 mg, INTRAMUSCULAR, ONCE, 1 dose, On 01/17/23 at 1000, Ketorolac (Toradol) is indicated for [...] Member Role: Primary Care Physician Address: Address: [address] [place] [address]- Name: LAURA RICHARDSON MD Position: ED Physician Member Role: Attending Physician Address: Address: [facility] [address] [place] [address]- Name: Shi Beaulieu RN Position: ED RN Member Role: ED RN Care Team Related Persons Name: MANOJ NOLASCO Electorate Officer Relationship Specialty Start Date End Date Milan Cervantes [address] [place] [address] PCP - General 11/10/06 Electorate Officer Relationship Specialty Start Date End Date Ysabel Lutz, ADULT CARE PROVIDER [address] [place] [address] PCP - General Family Medicine 02/25/22 Electorate Officer Relationship Specialty Start Date End Date Ysabel Lutz, ADULT CARE PROVIDER [address] [facility] [place] [address] PCP - General Family Medicine 02/25/22 Electorate Officer Relationship Specialty Start Date End Date Ysabel Lutz, ADULT CARE PROVIDER [address] [facility] [place] [address] PCP - General Family Medicine 02/25/22 Electorate Officer Relationship Specialty Start Date End Date Ysabel Lutz, ADULT CARE PROVIDER [address] [facility] [place] [address] PCP - General Family Medicine 02/25/22 Electorate Officer Relationship Specialty Start Date End Date Clifton Bhat Chi [address] [facility] [address] [address] [place] [address] PCP - General Gerontology 07/28/22 Electorate Officer Relationship Specialty Start Date End Date Clifton Bhat Chi [address] [facility] [address] [place] [address] PCP - General Gerontology 07/28/22 Electorate Officer Relationship Specialty Start Date End Date Clifton Bhat Chi [address] [facility] [address] [place] [address] PCP - General Gerontology 07/28/22 Electorate Officer Relationship Specialty Start Date End Date Aram Johnson DO [address] [facility] [address] [place], [place] [address] PCP - General Family Medicine 12/14/22 Electorate Officer Relationship Specialty Start Date End Date Aram Johnson DO [address] [facility] [facility] [address] [place], [place] [address] PCP - General Family Medicine 12/14/22 Electorate Officer Relationship Specialty Start Date End Date Aram JohnsonDO [address] [place] [address] PCP - General Family Medicine 12/14/22 Electorate Officer Relationship Specialty Start Date End Date Alex Aram Juice, DO [address] [place] [address] PCP - General Family Medicine 12/14/22 Electorate Officer Relationship Specialty Start Date End Date Aram Johnson DO [address] [place], [place] [address] PCP - General Family Medicine 12/14/22 Source Comments (unrecognize d section and content) In the event this informatio n is protected by the Federal Confidentiality of Alcohol and Drug Abuse Patient Records regulations: The Federal rules restrict any use of the information to criminally investigate or prosecute any alcohol or drug abuse patient.[facility] the event this information is protected by the Federal Confidentiality of Alcohol and Drug Abuse Patient Records regulations: The Federal rules restrict any use of the information to criminally investigate or prosecute any alcohol or drug abuse patient.[facility] the event this information is protected by the Federal Confidentiality of Alcohol and Drug Abuse Patient Records regulations: The Federal rules restrict any use of the information to criminally investigate or prosecute any alcohol or drug abuse patient.[facility] the event this information is protected by the Federal Confidentiality of Alcohol and Drug Abuse Patient Records regulations: The Federal rules restrict any use of the information to criminally investigate or prosecute any alcohol or drug abuse patient.[facility] the event this information is protected by the Federal Confidentiality of Alcohol and Drug Abuse Patient Records regulations: The Federal rules restrict any use of the information to criminally investigate or prosecute any alcohol or drug abuse patient.[facility] the event this information is protected by the Federal Confidentiality of Alcohol and Drug Abuse Patient Records regulations: The Federal rules restrict any use of the information to criminally investigate or prosecute any alcohol or drug abuse patient.[facility] the event this information is protected by the Federal Confidentiality of Alcohol and Drug Abuse Patient Records regulations: The Federal rules restrict any use of the information to criminally investigate or prosecute any alcohol or drug abuse patient.[facility] the event this information is protected by the Federal Confidentiality of Alcohol and Drug Abuse Patient Records regulations: The Federal rules restrict any use of the information to criminally investigate or prosecute any alcohol or drug abuse patient.[facility] the event this information is protected by the Federal Confidentiality of Alcohol and Drug Abuse Patient Records regulations: The Federal rules restrict any use of the information to criminally investigate or prosecute any alcohol or drug abuse patient.[facility] the event this information is protected by the Federal Confidentiality of Alcohol and Drug Abuse Patient Records regulations: The Federal rules restrict any use of the information to criminally investigate or prosecute any alcohol or drug abuse patient.[facility] the event this information is protected by the Federal Confidentiality of Alcohol and Drug Abuse Patient Records regulations: The Federal rules restrict any use of the information to criminally investigate or prosecute any alcohol or drug abuse patient.[facility] the event this information is protected by the Federal Confidentiality of Alcohol and Drug Abuse Patient Records regulations: The Federal rules restrict any use of the information to criminally investigate or prosecute any alcohol or drug abuse patient.[facility] the event this information is protected by the Federal Confidentiality of Alcohol and Drug Abuse Patient Records regulations: The Federal rules restrict any use of the information to criminally investigate or prosecute any alcohol or drug abuse patient.[facility] the event this information is protected by the Federal Confidentiality of Alcohol and Drug Abuse Patient Records regulations: The Federal rules restrict any use of the information to criminally investigate or prosecute any alcohol or drug abuse patient.[facility] the event this information is protected by the Federal Confidentiality of Alcohol and Drug Abuse Patient Records regulations: The Federal rules restrict any use of the information to criminally investigate or prosecute any alcohol or drug abuse patient.[facility] Reason for Visit (unrecogniz ed section and [...] content) Care Team Personnel Name: YSABEL LUTZ APRN - ADULT CARE PROVIDER Position: P4 Advanced Practice Nurse Med Service: Employed Provider Member Role: Primary Care Physician Address: Address: [address] [facility] [place] [address]- Care Team Related Persons Name: MANOJ NOLASCO INFORMATION SOURCE (unrecogn ized section and content) DATE CREATED AUTHOR AUTHOR'S CRISPIN BAIRES 02/28/2023 [facility] ([place]) FOR RECORDS PERTAINING TO PATIENTS WHO ARE [...] BE BASED ON THE PRIMARY CLINICAL RECORDS. [employer] provides no warranty or guarantee of the accuracy or completeness of information in this document.
--- NOTE | 2023-03-01 21:15 | RAD_ITS ---
STUDY: X-RAY - RIGHT TIBIA AND FIBULA REASON FOR EXAM: Female, 52 years old. injury TECHNIQUE: 3 view(s) of the tibia and fibula were obtained. COMPARISON: None. FINDINGS: Normal visualized tibia. Normal visualized fibula. The soft tissue structures are unremarkable. RAD/Tibia & Fibula 2 Views IMPRESSION: Normal x-ray examination of the tibia and fibula. Electronically Signed: Isaac Aviles MD at 20:48 EST ,
== END 2023-03-01 21:50 | disposition home or self-care (01) ==
PROVIDERS: Emergency Provider Emergency Medicine; PCP Family Medicine; Visit Provider Emergency Medicine
DX: S80.11XA Contusion of right lower leg, initial encounter (principal); J44.9 Chronic obstructive pulmonary disease, unspecified; E66.01 Morbid (severe) obesity due to excess calories; Z68.42 Body mass index [BMI] 45.0-49.9, adult; S40.021A Contusion of right upper arm, initial encounter; W18.2XXA Fall in (into) shower or empty bathtub, initial encounter; Y93.E1 Activity, personal bathing and showering; Y99.8 Other external cause status; Y92.002 Bathroom of unspecified non-institutional (private) residence as the place of occurrence of the external cause; I10 Essential (primary) hypertension; E78.5 Hyperlipidemia, unspecified; Z79.51 Long term (current) use of inhaled steroids; Z79.899 Other long term (current) drug therapy
CPT/HCPCS: 73060; 73590; 99283

== ENCOUNTER 2023-03-02 04:36 | Emergency (ER) | payer MEDICARE, MEDICAID, SELFPAY ==
[2023-03-02 04:36] VITALS: BP 135/91; PULSE 93; RESP 16; TEMP 36.2; O2SAT 97; BMI 46.7
--- NOTE | 2023-03-02 04:51 | CT_ITS ---
INDICATION: head injury, fell today, history of recent falls EXAMINATION: CT Head or Brain W/O Contrast Injection TECHNIQUE: Multiple axial images were obtained of the head without intravenous contrast. A radiation dose optimization technique was used for this scan. IV Contrast dosage and agent: None. COMPARISON: Head CT from 02/10/2023 FINDINGS: BRAIN PARENCHYMA: No intra- or extra-axial hemorrhage. No evidence of acute major territorial infarct. No intracranial mass or mass effect. Mild chronic periventricular white matter lucencies. Chronic cerebral involutional changes. CSF SPACES: Prominent cerebral sulci secondary to involutional changes. No hydrocephalus. Basal cisterns are patent. CALVARIUM, SKULL BASE, PARANASAL SINUSES AND MASTOID AIR CELLS: Calvarium is intact. No acute findings within paranasal sinuses. Mastoid air cells are well-pneumatized. ORBITS: Postop cataract surgery bilaterally. CT/Brain/Head without Contrast IMPRESSION: Chronic involutional and white matter changes. No evidence of acute intracranial abnormality. Electronically Signed: Manuel Schaefer MD at 5:55 EST ,
[2023-03-02 05:09] LABS: Absolute Lymphocyte Count 1.99 X10^3/uL (0.83-4.51); Absolute Neutrophil Count 8.6 X10^3/uL (2.0-7.7); Basophil% 0.8 % (0-1); Eosinophil# 0.68 X10^3/uL; Eosinophils% 5.4 % (0-5); Hematocrit 36.3 % (37-47); Hemoglobin 11.3 g/dL (12.0-15.0); Lymphocyte # 1.99 X10^3/ul (0.83-4.51); Lymphocyte % 15.9 % (19-41); Mean Corp Hgb Conc 31.1 g/dL (32-36); Mean Corpuscular Hgb 31.9 pg (27.0-32.0); Mean Corpuscular Volume 102.5 fL (81-99); Mean Platelet Vol. 9.2 fl (6.2-12.0); Monocyte# 1.06 X10^3/uL; Monocyte% 8.5 % (0-10); NRBC Flagged by Analyzer 0 % (0-5); Neutrophil # 8.58 X10^3/uL (2.7-7.7); Neutrophil % 68.5 % (47-70); Platelet Count 433 K/mm3 (150-450); RBC Distribution Width CV 14.9 % (11.6-14.6); RBC Distribution Width SD 57.1 fl (35.1-43.9); Red Blood Count 3.54 M/mm3 (4.2-5.4); White Blood Count 12.5 K/mm3 (4.4-11.0)
--- OUTSIDE RECORDS SUMMARY | 2023-03-02 05:18 | XMS RPT_ITS | CCD ---
Author Name Unknown Address [address] [place] [address] Organization [facility] Care Team Providers Care Watch Assembly Instructor Name Role Phone Ysabel Lutz Primary Care Provider KAREN OBRIEN - YSABEL MOREL Primary Care Phys ician Milan Cervantes Primary Care Provider [phone] Ysabel Lutz CNP Primary Care Provider Clifton Bhat Chi Primary Care Provider DR LUZ ELENA BHAT MD Primary Care [...] GONZALEZ, DR LAGUNA Primary Care Unavailable KAREN TOP HAT BODY MAKER - MOTORMAN/WOMAN, YSABEL Lucas Primary Care U nell LUTZ APRN - MOTORMAN/WOMAN, YSABEL Lucas Attending U SHEELA Gomez MD Attending Unavailable PHYSICIAN, NOT RECORDED Primary Care Unavaila kylie GARRIDO MD, SHEELA Liu Attending Unavailable PHYSICIAN, NONE Primary Care Unavailable DON MORALEZ, DR OMEGA Liu Attending Unavailable HOME GONZALEZ, DR LAGUNA Primary Care Unavailable HOME GONZALEZ, DR LAGUNA Primary Care Unavailable RANDOLPH GONZALEZ, DR INA Lui Attending Unavailable Allergies Allergy Classification Reported Allergen(s) Allergy Type Date of Onset Reaction(s) Facility (1 source) Aluminum aspirin Drug Allergy 04-23-2020 Nausea Only [facility] Work Phone: (15 sources) hydroCHLOROthiaz rosa maria; Translations: [HYDROCHLOROTHIA ZIDE] Drug Allergy 09-28-2019 Unknown [facility] Work Phone: (20 sources) Naproxen; Translations: [naproxen] Drug Allergy 11-05-2018 Vomiting [facility] Work Phone: (13 sources) Aspirin; Translations: [aspirin] Drug Allergy NAUSEA [facility] (16 sources) Salicylate product; Translations: [SALICYLATES] Propensity to adverse reactions 12-21-2007 [facility] Work Phone: Medications Current Medications [...] every six hours as needed for pain [place] 325- 5 mg oral tablet Dose = [...] qDay, # 30 tab(s), 1 Refill(s), Pharmacy: [facility], 162, cm, 05/20/22 15:06:00 EDT, Height, [...] Body temperature 98.78 [degF] LAURA RICHARDSON MD [facility] 02-28-2023 12:11-0500 Diastolic Blood Pressure Non-Invasive 89 mm[Hg] LAURA RICHARDSON MD [facility] 02-28-2023 12:11-0500 Heart rate 101 /min LAURA RICHARDSON MD [facility] 02-28-2023 12:11-0500 Respiratory rate 22 /min LAURA RICHARDSON MD [facility] 02-28-2023 12:11-0500 Systolic Blood Pressure Non-Invasive 145 mm[Hg] LAURA RICHARDSON MD [facility] 02-27-2023 07:15-0500 Diastolic Blood Pressure Non-Invasive 87 mm[Hg] ALEX TEMPLETON MD [facility] 02-27-2023 07:15-0500 Heart rate 102 /min ALEX TEMPLETON MD [facility] 02-27-2023 07:15-0500 Respiratory rate 18 /min ALEX TEMPLETON MD [facility] 02-27-2023 07:15-0500 Systolic Blood Pressure Non-Invasive 129 mm[Hg] ALEX TEMPLETON MD [facility] 02-27-2023 06:20-0500 Body temperature 97.88 [degF] ALEX TEMPLETON MD [facility] 02-27-2023 06:20-0500 Diastolic Blood Pressure Non-Invasive 107 mm[Hg] ALEX TEMPLETON MD [facility] 02-27-2023 06:20-0500 Heart rate 103 /min ALEX TEMPLETON MD [facility] 02-27-2023 06:20-0500 Respiratory rate 14 /min ALEX TEMPLETON MD [facility] 02-27-2023 06:20-0500 Systolic Blood Pressure Non-Invasive 146 mm[Hg] ALEX TEMPLETON MD [facility] 02-24-2023 17:16-0500 Diastolic Blood Pressure Non-Invasive 95 mm[Hg] DR DEBBIE CHATMAN DO [facility] 02-24-2023 17:16-0500 Heart rate 94 /min DR DEBBIE CHATMAN DO [facility] 02-24-2023 17:16-0500 Respiratory rate 22 /min DR DEBBIE CHATMAN DO [facility] 02-24-2023 17:16-0500 Systolic Blood Pressure Non-Invasive 170 mm[Hg] DR DEBBIE CHATMAN DO [facility] 02-24-2023 16:35-0500 Body height 162.[address] DEBBIE CHATMAN DO [facility] 02-24-2023 16:35-0500 Body temperature 98.06 [degF] DR DEBBIE CHATMAN DO [facility] 02-24-2023 16:35-0500 Body weight [address] DEBBIE CHATMAN DO [facility] 02-24-2023 16:35-0500 Diastolic Blood Pressure Non-Invasive 114 mm[Hg] DR DEBBIE CHATMAN DO [facility] 02-24-2023 16:35-0500 Heart rate 102 /min DR DEBBIE CHATMAN DO [facility] 02-24-2023 16:35-0500 Respiratory rate 20 /min DR DEBBIE CHATMAN DO [facility] 02-24-2023 16:35-0500 Systolic Blood Pressure Non-Invasive 156 mm[Hg] DR DEBBIE CHATMAN DO [facility] 02-17-2023 09:39-0500 Diastolic Blood Pressure Non-Invasive 101 mm[Hg] DR DAQUAN MAI MD [facility] 02-17-2023 09:39-0500 Heart rate 94 /min DR DAQUAN MAI MD [facility] 02-17-2023 09:39-0500 Mean blood pressure 116 mm[Hg] DR DAQUAN MAI MD [facility] 02-17-2023 09:39-0500 Reason For Taking VItal Signs DR DAQUAN MAI MD [facility] 02-17-2023 09:39-0500 Respiratory rate 16 /min DR DAQUAN MAI MD [facility] 02-17-2023 09:39-0500 Systolic Blood Pressure Non-Invasive 158 mm[Hg] DR DAQUAN MAI MD [facility] 02-17-2023 07:34-0500 Body temperature 98.42 [degF] DR DAQUAN MAI MD [facility] 02-17-2023 07:34-0500 Diastolic Blood Pressure Non-Invasive 105 mm[Hg] DR DAQUAN MAI MD [facility] 02-17-2023 07:34-0500 Heart rate 88 /min DR DAQUAN MAI MD [facility] 02-17-2023 07:34-0500 Respiratory rate 16 /min DR DAQUAN MAI MD [facility] 02-17-2023 07:34-0500 Systolic Blood Pressure Non-Invasive 163 mm[Hg] DR DAQUAN MAI MD [facility] 01-23-2023 12:24-0500 Blood Pressure Location AUDRA REICHFIELD DO [facility] 01-23-2023 12:24-0500 Diastolic Blood Pressure Non-Invasive 76 mm[Hg] AUDRA REICHFIELD DO [facility] 01-23-2023 12:24-0500 Heart rate 81 /min AUDRA REICHFIELD DO [facility] 01-23-2023 12:24-0500 Reason For Taking VItal Signs AUDRA REICHFIELD DO [facility] 01-23-2023 12:24-0500 Respiratory rate 16 /min AUDRA REICHFIELD DO [facility] 01-23-2023 12:24-0500 Systolic Blood Pressure Non-Invasive 120 mm[Hg] AUDRA REICHFIELD DO [facility] 01-23-2023 09:16-0500 Blood Pressure Location AUDRA REICHFIELD DO [facility] 01-23-2023 09:16-0500 Body temperature 98.6 [degF] AUDRA REICHFIELD DO [facility] 01-23-2023 09:16-0500 Diastolic Blood Pressure Non-Invasive 86 mm[Hg] AUDRA REICHFIELD DO [facility] 01-23-2023 09:16-0500 Heart rate 84 /min AUDRA REICHFIELD DO [facility] 01-23-2023 09:16-0500 Respiratory rate 16 /min AUDRA REICHFIELD DO [facility] 01-23-2023 09:16-0500 Systolic Blood Pressure Non-Invasive 134 mm[Hg] AUDRA PHILLIPS DO [facility] 01-18-2023 07:37-0500 Body temperature 96.8 [degF] Satnam Rodriguez TOP HAT BODY MAKER.MOTORMAN/WOMAN Work Phone: [facility] 01-18-2023 07:37-0500 Body weight 130.18 kg Satnamshira Rodriguez TOP HAT BODY MAKER.MOTORMAN/WOMAN Work Phone: [facility] 01-18-2023 07:37-0500 Diastolic blood pressure 80 mm[Hg] Satnam Rodriguez TOP HAT BODY MAKER.MOTORMAN/WOMAN Work Phone: [facility] 01-18-2023 07:37-0500 Heart rate 94 /min Satnam Rodriguez TOP HAT BODY MAKER.MOTORMAN/WOMAN Work Phone: [facility] 01-18-2023 07:37-0500 Respiratory rate 16 /min Satnam Rodriguez TOP HAT BODY MAKER.MOTORMAN/WOMAN Work Phone: [facility] 01-18-2023 07:37-0500 SaO2% (BldA) [Mass fraction] 96 % Satnam Rodriguez TOP HAT BODY MAKER.MOTORMAN/WOMAN Work Phone: [facility] 01-18-2023 07:37-0500 Systolic blood pressure 132 mm[Hg] Satnam Rodriguez TOP HAT BODY MAKER.MOTORMAN/WOMAN Work Phone: [facility] 01-17-2023 09:47-0500 Body temperature 96.91 [degF] Whitley Lancasterler-Mohan TOP HAT BODY MAKER.MOTORMAN/WOMAN Work Phone: [facility] 01-17-2023 09:47-0500 Body weight 129.28 kg Whitley Prashayyler-Mohan TOP HAT BODY MAKER.MOTORMAN/WOMAN Work Phone: [facility] 01-17-2023 09:47-0500 Diastolic blood pressure 88 mm[Hg] Whitley Praisler-Wood TOP HAT BODY MAKER.MOTORMAN/WOMAN Work Phone: [facility] 01-17-2023 09:47-0500 Heart rate 82 /min Whitley Prashayyler-Wood TOP HAT BODY MAKER.MOTORMAN/WOMAN Work Phone: [facility] 01-17-2023 09:47-0500 Respiratory rate 18 /min Whitley Prashayyler-Wood TOP HAT BODY MAKER.MOTORMAN/WOMAN Work Phone: [facility] 01-17-2023 09:47-0500 SaO2% (BldA) [Mass fraction] 96 % Whitley Praisler-Wood TOP HAT BODY MAKER.MOTORMAN/WOMAN Work Phone: [facility] 01-17-2023 09:47-0500 Systolic blood pressure 142 mm[Hg] Whitley Praisler-Wood TOP HAT BODY MAKER.MOTORMAN/WOMAN Work Phone: [facility] 01-10-2023 11:49-0500 Diastolic Blood Pressure Non-Invasive 81 1 SHEELA GARRIDO MD [facility] 01-10-2023 11:49-0500 Heart rate 68 /min SHEELA GARRIDO MD [facility] 01-10-2023 11:49-0500 Respiratory rate 20 /min SHEELA GARRIDO MD [facility] 01-10-2023 11:49-0500 Systolic Blood Pressure Non-Invasive 153 1 SHEELA GARRIDO MD [facility] 01-10-2023 10:16-0500 Diastolic Blood Pressure Non-Invasive 94 1 SHEELA GARRIDO MD [facility] 01-10-2023 10:16-0500 Heart rate 66 /min SHEELA GARRIDO MD [facility] 01-10-2023 10:16-0500 Respiratory rate 17 /min SHEELA GARRIDO MD [facility] 01-10-2023 10:16-0500 Systolic Blood Pressure Non-Invasive 152 1 SHEELA GARRIDO MD [facility] 01-10-2023 09:06-0500 Body temperature 97.52 [degF] SHEELA GARRIDO MD [facility] 01-10-2023 09:06-0500 Diastolic Blood Pressure Non-Invasive 97 1 SHEELA GARRIDO MD [facility] 01-10-2023 09:06-0500 Heart rate 72 /min SHEELA GARRIDO MD [facility] 01-10-2023 09:06-0500 Systolic Blood Pressure Non-Invasive 139 1 SHEELA GARRIDO MD [facility] 01-10-2023 08:35-0500 Blood Pressure Location SHEELA GARRIDO MD [facility] 01-10-2023 08:35-0500 Blood Pressure Method SHEELA GARRIDO MD [facility] 01-10-2023 08:35-0500 Body height 162.6 cm SHEELA GARRIDO MD [facility] 01-10-2023 08:35-0500 Body weight 129.4 kg SHEELA GARRIDO MD [facility] 01-10-2023 08:35-0500 Heart rate 98 /min SHEELA GARRIDO MD [facility] 01-10-2023 08:35-0500 Respiratory rate 20 /min SHEELA GARRIDO MD [facility] 12-25-2022 01:29-0400 Diastolic Blood Pressure Non-Invasive 79 1 FABIANBALWINDER RODRIGUEZKA DO [facility] 12-25-2022 01:29-0400 Heart rate 75 /min FABIAN NADIYAESKA DO [facility] 12-25-2022 01:29-0400 Respiratory rate 16 /min FABIAN JENNIFERKA DO [facility] 12-25-2022 01:29-0400 Systolic Blood Pressure Non-Invasive 119 1 FABIAN DURESKA DO [facility] 12-25-2022 00:30-0400 Diastolic Blood Pressure Non-Invasive 75 1 FABIAN DURESKA DO [facility] 12-25-2022 00:30-0400 Heart rate 75 /min FABIAN DURESKA DO [facility] 12-25-2022 00:30-0400 Respiratory rate 16 /min FABIAN DURESKA DO [facility] 12-25-2022 00:30-0400 Systolic Blood Pressure Non-Invasive 135 1 FABIAN DURESKA DO [facility] 12-24-2022 22:30-0400 Diastolic Blood Pressure Non-Invasive 80 1 FABIAN DURESKA DO [facility] 12-24-2022 22:30-0400 Heart rate 72 /min FABIAN DURESKA DO [facility] 12-24-2022 22:30-0400 Reason For Taking VItal Signs FABIAN DURESKA DO [facility] 12-24-2022 22:30-0400 Respiratory rate 16 /min FABIAN DURESKA DO [facility] 12-24-2022 22:30-0400 Systolic Blood Pressure Non-Invasive 123 1 FABIAN DURESKA DO [facility] 12-24-2022 19:56-0400 Reason For Taking VItal Signs FABIAN DURESKA DO [facility] 12-24-2022 18:06-0400 Body height 162.6 cm FABIAN DURESKA DO [facility] 12-24-2022 18:06-0400 Body temperature 97.88 [degF] FABIAN MOLINA DO [facility] 12-24-2022 18:06-0400 Body weight 127.3 kg FABIAN MOLINA DO [facility] 12-24-2022 18:06-0400 Heart rate 83 /min FABIAN MOLINA DO [facility] 12-14-2022 10:52-0400 Body temperature 97.7 [degF] Whitley Praisler-Wood TOP HAT BODY MAKER.MOTORMAN/WOMAN Work Phone: [facility] 12-14-2022 10:52-0400 Body weight 130.18 kg Whitley Praisler-Wood TOP HAT BODY MAKER.MOTORMAN/WOMAN Work Phone: [facility] 12-14-2022 10:52-0400 Diastolic blood pressure 80 mm[Hg] Whitley Praisler-Wood TOP HAT BODY MAKER.MOTORMAN/WOMAN Work Phone: [facility] 12-14-2022 10:52-0400 Heart rate 78 /min Whitley Praisler-Wood TOP HAT BODY MAKER.MOTORMAN/WOMAN Work Phone: [facility] 12-14-2022 10:52-0400 Respiratory rate 16 /min Whitley Praisler-Wood TOP HAT BODY MAKER.MOTORMAN/WOMAN Work Phone: [facility] 12-14-2022 10:52-0400 SaO2% (BldA) [Mass fraction] 97 % Whitley Praisler-Wood TOP HAT BODY MAKER.MOTORMAN/WOMAN Work Phone: [facility] 12-14-2022 10:52-0400 Systolic blood pressure 128 mm[Hg] Whitley Praisler-Wood TOP HAT BODY MAKER.MOTORMAN/WOMAN Work Phone: [facility] 11-16-2022 10:58-0400 Body temperature 97.7 [degF] Dion Athy PA-C Work Phone: [facility] 11-16-2022 10:58-0400 Body weight 126.1 kg Dion Athy PA-C Work Phone: [facility] 11-16-2022 10:58-0400 Diastolic blood pressure 82 mm[Hg] Dion Athy PA-C Work Phone: [facility] 11-16-2022 10:58-0400 Heart rate 102 /min Dion Athy PA-C Work Phone: [facility] 11-16-2022 10:58-0400 Respiratory rate 18 /min Dion Athy PA-C Work Phone: [facility] 11-16-2022 10:58-0400 SaO2% (BldA) [Mass fraction] 98 % Dion Athy PA-C Work Phone: [facility] 11-16-2022 10:58-0400 Systolic blood pressure 138 mm[Hg] Dion Athy PA-C Work Phone: [facility] 10-03-2022 15:59-0400 Body temperature 98.42 [degF] SHEELA GARRIDO MD [facility] 10-03-2022 15:59-0400 Diastolic Blood Pressure Non-Invasive 88 1 SHEELA GARRIDO MD [facility] 10-03-2022 15:59-0400 Heart rate 96 /min SHEELA GARRIDO MD [facility] 10-03-2022 15:59-0400 Respiratory rate 18 /min SHEELA GARRIDO MD [facility] 10-03-2022 15:59-0400 Systolic Blood Pressure Non-Invasive 124 1 SHEELA GARRIDO MD [facility] 10-03-2022 13:36-0400 Blood Pressure Cuff Size SHEELA GARRIDO MD [facility] 10-03-2022 13:36-0400 Blood Pressure Location SHEELA GARRIDO MD [facility] 10-03-2022 13:36-0400 Blood Pressure Method SHEELA GARRIDO MD [facility] 10-03-2022 13:36-0400 Body temperature 98.6 [degF] SHEELA GARRIDO MD [facility] 10-03-2022 13:36-0400 Diastolic Blood Pressure Non-Invasive 85 1 SHEELA GARRIDO MD [facility] 10-03-2022 13:36-0400 Heart rate 104 /min SHEELA GARRIDO MD [facility] 10-03-2022 13:36-0400 Respiratory rate 20 /min SHEELA GARRIDO MD [facility] 10-03-2022 13:36-0400 Systolic Blood Pressure Non-Invasive 128 1 SHEELA GARRIDO MD [facility] 09-22-2022 23:41-0400 Body temperature 98.24 [degF] DR OMEGA OCHOA DO [facility] 09-22-2022 23:41-0400 Diastolic Blood Pressure Non-Invasive [address] OMEGA OCHOA DO [facility] 09-22-2022 23:41-0400 Heart rate 100 /min DR OMEGA OCHOA DO [facility] 09-22-2022 23:41-0400 Respiratory rate 20 /min DR OMEGA OCHOA DO [facility] 09-22-2022 23:41-0400 Systolic Blood Pressure Non-Invasive [address] OMEGA OCHOA DO [facility] 08-17-2022 14:34-0400 Diastolic blood pressure 94 mm[Hg] Whitley Praisler-Wood TOP HAT BODY MAKER.MOTORMAN/WOMAN Work Phone: [facility] 08-17-2022 14:34-0400 Heart rate 83 /min Whitley Praisler-Wood TOP HAT BODY MAKER.MOTORMAN/WOMAN Work Phone: [facility] 08-17-2022 14:34-0400 SaO2% (BldA) [Mass fraction] 98 % Whitley Praisler-Wood TOP HAT BODY MAKER.MOTORMAN/WOMAN Work Phone: [facility] 08-17-2022 14:34-0400 Systolic blood pressure 182 mm[Hg] Whitley Praisler-Wood TOP HAT BODY MAKER.MOTORMAN/WOMAN Work Phone: [facility] 08-17-2022 13:36-0400 Body temperature 98.2 [degF] Whitley Praisler-Wood TOP HAT BODY MAKER.MOTORMAN/WOMAN Work Phone: [facility] 08-17-2022 13:36-0400 Body weight 114.31 kg Whitley Praisler-Wood TOP HAT BODY MAKER.MOTORMAN/WOMAN Work Phone: [facility] 08-17-2022 13:36-0400 Respiratory rate 16 /min Whitley Praisler-Wood TOP HAT BODY MAKER.MOTORMAN/WOMAN Work Phone: [facility] 08-13-2022 22:09-0400 Diastolic Blood Pressure Non-Invasive [address] INA DICKSON MD [facility] 08-13-2022 22:09-0400 Heart rate 85 /min DR INA DICKSON MD [facility] 08-13-2022 22:09-0400 Respiratory rate 20 /min DR INA DICKSON MD [facility] 08-13-2022 22:09-0400 Systolic Blood Pressure Non-Invasive [address] INA DICKSON MD [facility] 08-13-2022 20:59-0400 Body temperature 98.06 [degF] DR INA DICKSON MD [facility] 08-13-2022 20:59-0400 Diastolic Blood Pressure Non-Invasive [address] INA DICKSON MD [facility] 08-13-2022 20:59-0400 Heart rate 80 /min DR INA DICKSON MD [facility] 08-13-2022 20:59-0400 Respiratory rate 18 /min DR INA DICKSON MD [facility] 08-13-2022 20:59-0400 Systolic Blood Pressure Non-Invasive [address] INA DICKSON MD [facility] 07-28-2022 09:55-0400 Body temperature 98.01 [degF] Dion Athy PA-C Work Phone: [facility] 07-28-2022 09:55-0400 Body weight 122.47 kg Dion Athy PA-C Work Phone: [facility] 07-28-2022 09:55-0400 Diastolic blood pressure 80 mm[Hg] Dion Athy PA-C Work Phone: [facility] 07-28-2022 09:55-0400 Heart rate 62 /min Dion Athy PA-C Work Phone: [facility] 07-28-2022 09:55-0400 Respiratory rate 18 /min Dion Athy PA-C Work Phone: [facility] 07-28-2022 09:55-0400 SaO2% (BldA) [Mass fraction] 98 % Dion Athy PA-C Work Phone: [facility] 07-28-2022 09:55-0400 Systolic blood pressure 122 mm[Hg] Dion Athy PA-C Work Phone: [facility] 05-04-2022 14:35-0500 Body temperature 98.4 [degF] Dion Athy PA-C Work Phone: [facility] 05-04-2022 14:35-0500 Body weight 121.38 kg Dion Athy PA-C Work Phone: [facility] 05-04-2022 14:35-0500 Diastolic blood pressure 88 mm[Hg] Dion Athy PA-C Work Phone: [facility] 05-04-2022 14:35-0500 Heart rate 87 /min Dion Athy PA-C Work Phone: [facility] 05-04-2022 14:35-0500 Respiratory rate 18 /min Dion Athy PA-C Work Phone: [facility] 05-04-2022 14:35-0500 SaO2% (BldA) [Mass fraction] 99 % Dion Athy PA-C Work Phone: [facility] 05-04-2022 14:35-0500 Systolic blood pressure 148 mm[Hg] Dion Athy PA-C Work Phone: [facility] 04-17-2022 13:18-0500 Body temperature 97.81 [degF] Jessica Dayna TOP HAT BODY MAKER.MOTORMAN/WOMAN Work Phone: [facility] 04-17-2022 13:18-0500 Body weight 124.92 kg Jessica Dayna TOP HAT BODY MAKER.MOTORMAN/WOMAN Work Phone: [facility] 04-17-2022 13:18-0500 Diastolic blood pressure 110 mm[Hg] Jessica Dayna TOP HAT BODY MAKER.MOTORMAN/WOMAN Work Phone: [facility] 04-17-2022 13:18-0500 Heart rate 79 /min Jessica Dayna TOP HAT BODY MAKER.MOTORMAN/WOMAN Work Phone: [facility] 04-17-2022 13:18-0500 Respiratory rate 21 /min Jessica Dayna TOP HAT BODY MAKER.MOTORMAN/WOMAN Work Phone: [facility] 04-17-2022 13:18-0500 SaO2% (BldA) [Mass fraction] 97 % Jessica Dayna TOP HAT BODY MAKER.MOTORMAN/WOMAN Work Phone: [facility] 04-17-2022 13:18-0500 Systolic blood pressure 152 mm[Hg] Jessica Mcintosh TOP HAT BODY MAKER.MOTORMAN/WOMAN Work Phone: [facility] 02-25-2022 15:16-0500 Body temperature 98.71 [degF] Ria Older TOP HAT BODY MAKER.MOTORMAN/WOMAN Work Phone: [facility] 02-25-2022 15:16-0500 Body weight 124.1 kg Ria Older TOP HAT BODY MAKER.MOTORMAN/WOMAN Work Phone: [facility] 02-25-2022 15:16-0500 Diastolic blood pressure 80 mm[Hg] Ria Older TOP HAT BODY MAKER.MOTORMAN/WOMAN Work Phone: [facility] 02-25-2022 15:16-0500 Heart rate 82 /min Ria Older TOP HAT BODY MAKER.MOTORMAN/WOMAN Work Phone: [facility] 02-25-2022 15:16-0500 Respiratory rate 16 /min Ria Older TOP HAT BODY MAKER.MOTORMAN/WOMAN Work Phone: [facility] 02-25-2022 15:16-0500 SaO2% (BldA) [Mass fraction] 99 % Ria Older TOP HAT BODY MAKER.MOTORMAN/WOMAN Work Phone: [facility] 02-25-2022 15:16-0500 Systolic blood pressure 138 mm[Hg] Ria Older TOP HAT BODY MAKER.MOTORMAN/WOMAN Work Phone: [facility] 12-20-2021 16:49-0400 Diastolic blood pressure 88 mm[Hg] DR VAHE JENKINS MD [facility] 12-20-2021 16:49-0400 Heart rate 80 /min DR VAHE JENKINS MD [facility] 12-20-2021 16:49-0400 Respiratory rate 18 /min DR VAHE JENKINS MD [facility] 12-20-2021 16:49-0400 Systolic blood pressure 174 mm[Hg] DR VAHE JENKINS MD [facility] 12-20-2021 15:50-0400 Body temperature 97.7 [degF] DR VAHE JENKINS MD [facility] 12-20-2021 15:50-0400 Heart rate 76 /min DR VAHE JENKINS MD [facility] 12-20-2021 15:50-0400 Respiratory rate 18 /min DR VAHE JENKINS MD [facility] 12-20-2021 13:53-0400 Body temperature 99.68 [degF] DR VAHE JENKINS MD [facility] 12-20-2021 13:53-0400 Diastolic blood pressure 100 mm[Hg] DR VAHE JENKINS MD [facility] 12-20-2021 13:53-0400 Heart rate 78 /min DR VAHE JENKINS MD [facility] 12-20-2021 13:53-0400 Respiratory rate 18 /min [facility] [facility] 12-20-2021 13:53-0400 Systolic blood pressure 160 mm[Hg] DR VAHE JENKINS MD [facility] 11-13-2021 11:51-0400 Body temperature 97.39 [degF] Dion Athy PA-C Work Phone: [facility] 11-13-2021 11:51-0400 Body weight 129.18 kg Dion Athy PA-C Work Phone: [facility] 11-13-2021 11:51-0400 Diastolic blood pressure 72 mm[Hg] Dion Athy PA-C Work Phone: [facility] 11-13-2021 11:51-0400 Heart rate 78 /min Dion Athy PA-C Work Phone: [facility] 11-13-2021 11:51-0400 Respiratory rate 16 /min Dion Athy PA-C Work Phone: [facility] 11-13-2021 11:51-0400 SaO2% (BldA) [Mass fraction] 98 % Dion Athy PA-C Work Phone: [facility] 11-13-2021 11:51-0400 Systolic blood pressure 130 mm[Hg] Dion Athy PA-C Work Phone: [facility] 10-17-2021 11:10-0400 Body temperature 98.01 [degF] Jac Mullen MD Work Phone: [facility] 10-17-2021 11:10-0400 Body weight 126.55 kg Jac Mullen MD Work Phone: [facility] 10-17-2021 11:10-0400 Diastolic blood pressure 84 mm[Hg] Jac Mullen MD Work Phone: [facility] 10-17-2021 11:10-0400 Heart rate 66 /min Jac Mullen MD Work Phone: [facility] 10-17-2021 11:10-0400 Respiratory rate 16 /min Jac Mullen MD Work Phone: [facility] 10-17-2021 11:10-0400 SaO2% (BldA) [Mass fraction] 99 % Jac Mlulen MD Work Phone: [facility] 10-17-2021 11:10-0400 Systolic blood pressure 122 mm[Hg] Jac Mullen MD Work Phone: [facility] 06-10-2021 11:20-0400 Diastolic Blood Pressure NBP 63 1 IRMA JEWELL DO [facility] 06-10-2021 11:20-0400 Heart rate 75 /min IRMA JEWELL DO [facility] 06-10-2021 11:20-0400 Respiratory rate 19 /min IRMA JEWELL DO [facility] 06-10-2021 11:20-0400 Systolic Blood Pressure NBP 111 1 IRMA JEWELL DO [facility] 06-10-2021 11:15-0400 Heart rate 72 /min IRMA JEWELL DO [facility] 06-10-2021 11:15-0400 Respiratory rate 15 /min IRMA JEWELL DO [facility] 06-10-2021 11:10-0400 Diastolic Blood Pressure NBP 67 1 IRMA JEWELL DO [facility] 06-10-2021 11:10-0400 Heart rate 77 /min IRMA JEWELL DO [facility] 06-10-2021 11:10-0400 Respiratory rate 19 /min IRMA JEWELL DO [facility] 06-10-2021 11:10-0400 Systolic Blood Pressure NBP 95 1 IRMA JEWELL DO [facility] 06-10-2021 11:05-0400 Diastolic Blood Pressure NBP 69 1 IRMA JEWELL DO [facility] 06-10-2021 11:05-0400 Systolic Blood Pressure NBP 100 1 IRMA JEWELL DO [facility] 06-10-2021 10:55-0400 Body temperature 97.52 [degF] IRMA JEWELL DO [facility] 06-10-2021 08:16-0400 Body height 162.6 cm IRMA JEWELL DO [facility] 06-10-2021 08:16-0400 Body temperature 96.98 [degF] IRMA JEWELL DO [facility] 06-10-2021 08:16-0400 Body weight 132.1 kg IRMA JEWELL DO [facility] 06-10-2021 08:16-0400 Heart rate 79 /min IRMA JEWELL DO [facility] 06-09-2021 10:24-0400 Body height 162.6 cm IRMA JEWELL DO [facility] 06-09-2021 10:24-0400 Body weight 132.1 kg IRMA JEWELL DO [facility] 06-09-2021 10:24-0400 Body weight 49.96 kg/m2 IRMA JEWELL DO [facility] 06-09-2021 10:24-0400 diastolic 68 mm[Hg] IRMA JEWELL DO [facility] 06-09-2021 10:24-0400 Heart rate 73 /min IRMA JEWELL DO [facility] 06-09-2021 10:24-0400 Respiratory rate 22 /min IRMA JEWELL DO [facility] 06-09-2021 10:24-0400 systolic 140 mm[Hg] IRMA JEWELL DO [facility] Encounters Encounter Date Encounter Type Care Provider Facility Start: 02-28-2023 End: 02-28-2023 Emergency department patient visit LAURA RICHARDSON MD Facility:B Start: 02-28-2023 End: 02-28-2023 Emergency department patient visit LAURA RICHARDSON MD [facility] Start: 02-27-2023 End: 02-27-2023 Emergency department patient visit ARAM JOHNSON DO Facility:B Start: 02-27-2023 End: 02-27-2023 Emergency department patient visit ALEX TEMPLETON MD [facility] Start: 02-24-2023 End: 02-24-2023 Emergency department patient visit ARAM JOHNSON DO Facility:B Start: 02-24-2023 End: 02-24-2023 Emergency department patient visit DR DEBBIE CHATMAN DO [facility] Start: 02-20-2023 End: 02-20-2023 Emergency department patient visit DR VAHE JENKINS MD Facility:B Start: 02-17-2023 End: 02-17-2023 Emergency department patient visit ARAM JOHNSON DO Facility:B Start: 02-17-2023 End: 02-17-2023 Emergency department patient visit DR DAQUAN MAI MD [facility] Start: 01-23-2023 End: 01-23-2023 Emergency department patient visit ARAM ALEX DO Facility:B Start: 01-23-2023 End: 01-23-2023 Emergency department patient visit AUDRA PHILLIPS DO [facility] Start: 01-18-2023 End: 01-19-2023 ambulatory SATNAM RODRIGUEZ Facility:[facility] Start: 01-18-2023 End: 01-18-2023 Patient encounter procedure Satnam Rodriguez [employer].MOTORMAN/WOMAN Work Phone: [facility] Procedures Date Procedure Procedure Detail Performing Clinician Start: 12-14-2022 Urnls dip stick/tabl et rgnt auto w/o microscopy Dion Escobar PA-C Work Phone: Start: 02-25-2022 COVID WITH FLUA+B, ROUTINE Ria Older [employer].MOTORMAN/WOMAN Work Phone: Start: 09-28-2020 Cardiac catheterization IRMA JEWELL DO Plan of Treatment Date Care Activity Detail Author Start: 01-18-2026 Diabetes Screening Diabetes Screenin g [facility] Start: 12-14-2025 Diabetes Screening Diabetes Screenin g [facility] Start: 12-14-2022 End: 03-15-2023 CBC W Auto Differential panel - Blood [facility] Work Phone: Payers Date Payer Category Payer Medicaid [id number] 2019 Medicaid MEDICAID [facility] MEDICAID [id number] 2019-Present [phone] [address] [place] [address] Medicaid [id number] 2019 Medicare [id number] 2019 Medicare [employer] [place] [id number] 2019-Present [phone] [address] [place] [address] HMO [id number] 1970 Unknown [id number] [id number]. 1970 Unknown [id number] [id number] 1970 Unknown [id number] [id number] 1970 Unknown [id number] [id number] 1970 Unknown [id number] [id number] 1970 Unknown [id number] [id number] 1970 Unknown [id number] [id number] 1970 Unknown [id number] [id number] 1970 Unknown [id number] [id number]. 1970 Unknown [id number] [id number] 1970 Unknown [id number] [id number] 1970 Unknown [id number] [id number] 1970 Unknown [id number] Social History Date Type Detail Facility Start: 11-25-2018 End: 04-23-2020 Tobacco smoking status VAIS Never smoker [facility] Work Phone: Start: 10-19-2010 End: 04-23-2020 Tobacco use and exposure Never used [facility] Work Phone: Start: 04-23-2020 Alcohol intake Lifetime non-d ambar (finding) [facility] Work Phone: Start: 04-23-2020 History SDOH Alcohol Frequency 1 [facility] Phone: Start: 1970 Sex Assigned At Not on file [facility] Work Phone: Sex Assigned At Female [facility] Start: 10-17-2021 End: 01-18-2023 Alcohol intake Current non-drinker of alcohol (finding) [facility] Start: 11-03-2021 End: 11-13-2021 Exposure to SARS-CoV-2 (event) Not sure [facility] Start: 11-16-2022 End: 01-18-2023 History of Social function [facility] Start: 11-16-2022 End: 01-18-2023 Tobacco use panel [facility] Functional Status Date Assessment Result Facility 02-28-2023 Functional Status Up ad javed [facility] 02-28-2023 Functional Status Standard Safet y ID band on, Allergy Band on, Call device within reach, Bed in low position, Wheels locked, Bedside Cart Locked, Safety level maintained [facility] 02-27-2023 Functional Status Assistive Device None A [facility] 02-27-2023 Functional Status Standard Safet y ID band on, Allergy Band on, Call device within reach, Bed in low position, Wheels locked, Bedside Cart Locked, Visitor at bedside [facility] 02-24-2023 Functional Status Identified as high risk, Fall ID band on [facility] 02-17-2023 [facility] Functional Status ID band on [facility] 01-23-2023 Functional Status Assistive Device None A [facility] 01-23-2023 Functional Status Standard Safety ID band on [facility] 01-10-2023 Functional Status Room check performed [facility] 01-10-2023 Functional Status [facility] 01-10-2023 Functional Status [facility] 12-25-2022 Functional Status Standard Safet y ID band on, Call device within reach, Bed in low position, Wheels locked [facility] 12-24-2022 Functional Status Johny [facility] 12-24-2022 Functional Status Johny [facility] 10-03-2022 Functional Status Independent John[facility] 09-23-2022 Functional Status Activity Mago tance Independent [facility] 08-13-2022 Functional Status Assistive Device Crutch es [facility] 12-20-2021 Functional Status Independent Johny [facility] 06-10-2021 Functional Status Johny Singh [facility] 06-10-2021 Functional Status Johny Singh [facility] 06-09-2021 Functional Status Johny Singh [facility] Mental Status Date Assessment Result Facility 02-28-2023 Mental Status Orientation Oriented x 4 [facility] 02-27-2023 Mental Status Orientation Oriented x 4 [facility] 02-27-2023 [facility]23 [facility] 02-17-2023 Mental Status Orientation Oriented x 4 [facility] 01-23-2023 Mental Status Orientation Oriented x 4 [facility] 01-23-2023 Mental Status [facility] 01-10-2023 Mental Status Orientation Oriented x 4 [facility] 01-10-2023 Mental Status [facility] 12-24-2022 Mental Status Orientation Oriented x 4 [facility] 10-03-2022 Mental Status Orientation Oriented x 4 [facility] 09-23-2022 Mental Status Orientation Oriented x 4 [facility] 09-23-2022 Mental Status [facility] 08-13-2022 Mental Status Oriented x 4 [facility] 12-20-2021 Mental Status Orientation Oriented x 4 [facility] 06-10-2021 Mental Status [facility] 06-10-2021 Mental Status [facility] Clinical Notes 06-10-2021 to 02-28-2023 Addendum Note - Satnam Rodriguez APRN.[facility] - 01/18/2023 10:48 AM ESTPatient InstructionsSatnam Rodriguez APRN.MOTORMAN/WOMAN - 01/18/2023 7:42 AM ESTPatient InstructionsPatient InstructionsLaboratoryLaboratory [...] you feel better and your symptoms ease. 3260-5329 [employer]. [address] [place] [address]. All rights reserved. This information is not intended as a substitute for professional medical care. Always follow your healthcare professional's instructions. Follow Up Care 02/28/2023 12:09:26 With:ARAM JOHNSON DO Address: [address] [place] [phone] When:2-4 days [facility] 02-28-2023 Note Discharge Instructions Thank you for allowing [place] to assist you with your healthcare needs. [...] DO When Within 2-4 days Where: [address] [place] [address]- [phone] Allergies Naprosyn (Nausea) aspirin (NAUSEA) Medications Please [...] for as needed for pain Unchanged acetaminophen-hydrocodone ([place] 325- 5 mg oral tablet) 1 tab(s) [...] Vaginal bleeding Duration: 90 Days Managed by OB-TRAIN EXAMINER Unchanged nortriptyline (nortriptyline 50 mg oral capsule) [...] may report side effects to FDA at [phone]-TJQ-[phone]. What other drugs will affect acetaminophen? Other drugs may affect acetaminophen, including prescription and ykxq-gnt-rlhvymw medicines, vitamins, and herbal products. Tell your [...] to ensure that the information provided by [employer]. ('[employer]') is accurate, up-to-date, and complete, but no guarantee is made to that effect. Drug information contained herein may be time sensitive. [employer] information has been compiled for use by healthcare practitioners and consumers in the [place] and therefore [employer] does not warrant that uses outside of the [place] are appropriate, unless specifically indicated otherwise. [employer] drug information does not endorse drugs, diagnose patients or recommend therapy. [employer] drug information is an informational resource designed [...] effective or appropriate for any given patient. [employer] does not assume any responsibility for any aspect of healthcare administered with the aid of information [employer] provides. The information contained herein is not intended to cover all possible uses, directions, precautions, warnings, drug interactions, allergic reactions, or adverse effects. If you have questions about the drugs you are taking, check with your doctor, nurse or pharmacist. Copyright 4051-4770 [employer]. Version: 25.. Revision Date: 09/27/2022. loperamide (maria [...] may report side effects to FDA at [phone]-SMH-8809. What other drugs will affect loperamide? Sometimes [...] can affect loperamide. This includes prescription and ptsb-kru-txvhyii medicines, vitamins, and herbal products. Not all [...] to ensure that the information provided by [employer]. ('[employer]rov[employer]') is accurate, up-to-date, and complete, but no guarantee is made to that effect. Drug information contained herein may be time sensitive. [employer] information has been compiled for use by healthcare practitioners and consumers in the [place] and therefore [employer] does not warrant that uses outside of the [place] are appropriate, unless specifically indicated otherwise. [employer]'s drug information does not endorse drugs, diagnose patients or recommend therapy. [employer] drug information is an informational resource designed [...] effective or appropriate for any given patient. [employer] does not assume any responsibility for any aspect of healthcare administered with the aid of information [employer] provides. The information contained herein is not intended to cover all possible uses, directions, precautions, warnings, drug interactions, allergic reactions, or adverse effects. If you have questions about the drugs you are taking, check with your doctor, nurse or pharmacist. Copyright 3995-7669 [employer]. Version: 12.30. Revision Date: 11/17/2022. Education Materials [...] you feel better and your symptoms ease. 1029-6952 [employer]. [address] [place] [address], [place] [address]. All rights reserved. This information is not intended as a substitute for professional medical care. Always follow your healthcare professional's instructions. Additional Information VACCINATE! IT SAVES LIVES! Members of the community who have not yet received the COVID-19 vaccine and would like to receive it can visit one of [facility] vaccine clinics. There are many vaccine clinic locations within the [facility]. For locations and available times, please visit [email or web address] It is important to note that some COVID mobile vaccine clinics are held outdoors and may be canceled in rainy or stormy conditions. To learn more about pediatric vaccinations (ages 5-11), we invite you to visit the [facility] webpage. https://www.akronIdentityForges.org/p ages/6372-Taoot-Ynhqhvourlk-Freq slblzj-Xjktl-Xojelupzl.html To learn more about the COVID-19 vaccine, we invite you to visit the CDC website for a list of frequently asked questions. https://www.cdc.gov/coronavirus/ 2019-ncov/vaccines/faq.html [facility] Patient Portal Access Instructions: Stay connected with your healthcare team and access your personal medical information anytime with the [facility] Patient Portal. If you would like a full copy of your medical records please contact the [facility] Medical Records Department Tuesday through Tuesday between 8a.m. and 4:30p.m. Please follow the directions below to access the portal: 1.Access the email account you provided upon registration to the hospital.2.Look for an invitation email from [facility].3.Open the email and access the invitation link: Accept Invitation to [facility]4.Fill in the required lee to create your account. Sign into [email or web address] with your username and password that you [...] you will allow to register on the [facility] Patient Portal for access to your information. You can also access the [facility] Patient Portal on the [employer] helder. Simply click on Health Records under [...] Call your local pharmacy or go to [email or web address] to find one close to you.3.Make use of household items: Use cat litter or old coffee grounds to dispose medications if other options are not available. Mix your drugs with these household products, seal them in an airtight container and throw it into the garbage. Call [facility]: [phone] to be sure your drugs can be [...] aware that I should contact my doctor. Patient/Fraud Examiner Signature: Date/Time: Relationship to Patient: Witness Name/Signature: Date/Time: [facility] 02-27-2023 Hospital Discharge instructions Patient Education 02/27/2023 06:24:39 Dizziness, Uncertain Cause Dizziness (Uncertain Cause) Dizziness is a common symptom. It may be described as lightheadedness, spinning, or feeling like you are going to faint. Dizziness can have many causes. Be sure to tell the healthcare provider about: All medicines you take, including prescription, xmzl-ues-hegptbl, herbs, and supplements Any other symptoms you [...] Chest, arm, neck, back, or jaw pain [phone] [employer]. [address] [place] [address]. All rights reserved. This information is not intended as a substitute for professional medical care. Always follow your healthcare professional's instructions. Follow Up Care 02/27/2023 05:53:35 With:ARAM JOHNSON DO Address: [address] [place] [phone] When:2-4 days [facility] 02-27-2023 Note Discharge Instructions Thank you for allowing [place] to assist you with your healthcare needs. The following is important discharge information regarding your hospital visit. Diagnosis from Today's Visit Dizziness Medication overdose What to Do Next Instructions from Your Care Team No qualifying data available. Post Acute Orders No qualifying data available. You Need to Schedule the Following Appointments Follow Up with ARAM JOHNSON DO When Within 2-4 days Where: [address] [place] [address]- [phone] Allergies Naprosyn (Nausea) aspirin (NAUSEA) Medications Please [...] for as needed for pain Unchanged acetaminophen-hydrocodone ([place] 325- 5 mg oral tablet) 1 tab(s) [...] Vaginal bleeding Duration: 90 Days Managed by OB-TRAIN EXAMINER Unchanged nortriptyline (nortriptyline 50 mg oral capsule) [...] about: All medicines you take, including prescription, invc-fxf-gzgejtw, herbs, and supplements Any other symptoms you [...] Chest, arm, neck, back, or jaw pain [phone] [employer]. [address] [place] [address]. All rights reserved. This information is not intended as a substitute for professional medical care. Always follow your healthcare professional's instructions. Additional Information VACCINATE! IT SAVES LIVES! Members of the community who have not yet received the COVID-19 vaccine and would like to receive it can visit one of [facility] vaccine clinics. There are many vaccine clinic locations within the [facility]. For locations and available times, please visit [email or web address] [email or web address] It is important to note that some COVID mobile vaccine clinics are held outdoors and may be canceled in rainy or stormy conditions. To learn more about pediatric vaccinations (ages 5-11), we invite you to visit the [facility] webpage. https://www.[facility]s.org/p ages/3398-Yezju-Hdrublwujgx-Freq dnwtet-Dcpgj-Rlweddxvs.html To learn more about the COVID-19 vaccine, we invite you to visit the CDC website for a list of frequently asked questions. https://www.cdc.gov/coronavirus/ 2019-ncov/vaccines/faq.html [facility] Patient Portal Access Instructions: Stay connected with your healthcare team and access your personal medical information anytime with the [facility] Patient Portal. If you would like a full copy of your medical records please contact the [facility] Medical Records Department Tuesday through Tuesday between 8a.m. and 4:30p.m. Please follow the directions below to access the portal: 1.Access the email account you provided upon registration to the [facility].2.Look for an invitation email from [facility].3.Open the email and access the invitation link: Accept Invitation to [facility]4.Fill in the required lee to create your account. Sign into [email or web address] with your username and password that you [...] you will allow to register on the [facility] Patient Portal for access to your information. You can also access the [facility] Patient Portal on the [employer] helder. Simply click on Health Records under [...] Call your local pharmacy or go to [email or web address] to find one close to you.3.Make use of household items: Use cat litter or old coffee grounds to dispose medications if other options are not available. Mix your drugs with these household products, seal them in an airtight container and throw it into the garbage. Call [facility]: [phone] to be sure your drugs can be [...] aware that I should contact my doctor. Patient/Fraud Examiner Signature: Date/Time: Relationship to Patient: Witness Name/Signature: Date/Time: [facility] 02-24-2023 Hospital Discharge instructions Patient Education 02/24/2023 [...] or higher after 2 days on antibiotics [phone] [employer]. [address] [place] [address], [place] [address]. All rights reserved. This information is not intended as a substitute for professional medical care. Always follow your healthcare professional's instructions. Follow Up Care 02/24/2023 16:26:27 With:ARAM JOHNSON DO Address: [address] [place] [address] [phone] When:2-4 days [facility] 02-24-2023 Note Discharge Instructions Thank you for allowing [place] to assist you with your healthcare needs. [...] Schedule the Following Appointments Follow Up with AARM JOHNSON DO When Within 2-4 days Where: [address] [place] [address]- [phone] Allergies Naprosyn (Nausea) aspirin (NAUSEA) Medications Please [...] for as needed for pain Unchanged acetaminophen-hydrocodone ([place] 325- 5 mg oral tablet) 1 tab(s) [...] Vaginal bleeding Duration: 90 Days Managed by OB-TRAIN EXAMINER Unchanged nortriptyline (nortriptyline 50 mg oral capsule) [...] may report side effects to FDA at 2-892-PQN-8320. What other drugs will affect cephalexin? Tell your doctor about all your other medicines, especially: metformin; or probenecid. This list is not complete. Other drugs may affect cephalexin, including prescription and ywpx-psc-kdktesl medicines, vitamins, and herbal products. Not all [...] to ensure that the information provided by [employer]okazon.com. ('Wordlock') is accurate, up-to-date, and complete, but no guarantee is made to that effect. Drug information contained herein may be time sensitive. Wordlock information has been compiled for use by healthcare practitioners and consumers in the [place] and therefore Wordlock does not warrant that uses outside of the [place] are appropriate, unless specifically indicated otherwise. Forsevas drug information does not endorse drugs, diagnose patients or recommend therapy. Forsevas drug information is an informational resource designed [...] effective or appropriate for any given patient. Wordlock does not assume any responsibility for any aspect of healthcare administered with the aid of information Wordlock provides. The information contained herein is not intended to cover all possible uses, directions, precautions, warnings, drug interactions, allergic reactions, or adverse effects. If you have questions about the drugs you are taking, check with your doctor, nurse or pharmacist. Copyright 0732-9745 [employer]ok[employer]. Version: 12.. Revision Date: 09/29/2022. Education Materials [...] or higher after 2 days on antibiotics 7642-8293 [employer]. [address] [place] [address], [place] [address]. All rights reserved. This information is not intended as a substitute for professional medical care. Always follow your healthcare professional's instructions. Additional Information VACCINATE! IT SAVES LIVES! Members of the community who have not yet received the COVID-19 vaccine and would like to receive it can visit one of [facility] vaccine clinics. There are many vaccine clinic locations within the [facility]. For locations and available times, please visit www.getBasewin Technologyshot.[facility].[place]. gov/. It is important to note that some COVID mobile vaccine clinics are held outdoors and may be canceled in rainy or stormy conditions. To learn more about pediatric vaccinations (ages 5-11), we invite you to visit the [facility] webpage. https://www.[facility].org/p ages/7962-Oqwop-Kflidgcohoo-Freq vatqhv-Qxglv-Tnqvyzper.html To learn more about the COVID-19 vaccine, we invite you to visit the CDC website for a list of frequently asked questions. https://www.cdc.gov/coronavirus/ 2019-ncov/vaccines/faq.html [facility] Patient Portal Access Instructions: Stay connected with your healthcare team and access your personal medical information anytime with the [facility] Patient Portal. If you would like a full copy of your medical records please contact the [facility] Medical Records Department Tuesday through Tuesday between 8a.m. and 4:30p.m. Please follow the directions below to access the portal: 1.Access the email account you provided upon registration to the hospital.2.Look for an invitation email from [facility].3.Open the email and access the invitation link: Accept Invitation to [facility]4.Fill in the required lee to create your account. Sign into [email or web address] with your username and password that you [...] you will allow to register on the [facility] Patient Portal for access to your information. You can also access the [facility] Patient Portal on the [employer] helder. Simply click on Health Records under [...] Call your local pharmacy or go to [email or web address] to find one close to you.3.Make use of household items: Use cat litter or old coffee grounds to dispose medications if other options are not available. Mix your drugs with these household products, seal them in an airtight container and throw it into the garbage. Call [facility] [place]: [phone] to be sure your drugs can be [...] aware that I should contact my doctor. Patient/Fraud Examiner Signature: Date/Time: Relationship to Patient: Witness Name/Signature: Date/Time: [facility] 02-17-2023 Hospital Discharge instructions Patient Education 02/17/2023 [...] the ears or bruising around the eyes 8082-5805 [employer]. [address] [place] [address]. All rights reserved. This information is not intended as a substitute for professional medical care. Always follow your healthcare professional's instructions. Follow Up Care 02/17/2023 07:23:32 With:ARAM JOHNSON DO Address: [address] [place] [phone] When:2-4 days [facility] 02-17-2023 Emergency department Discharge summary Discharge Instructions Thank you for allowing [facility] to assist you with your healthcare needs. [...] JOHNSON DO When Within 2-4 days Where: [address] [place] [phone]- [phone] Allergies Naprosyn (Nausea) aspirin (NAUSEA) Medications Please ask your primary doctor or pharmacist before taking any other medication not listed, including over the counter drugs, herbal medications, vitamins and or supplements as they may interact with your home medications. What How Much When Why Instructions Last Dose New acetaminophen-hydrocodone ([place] 325- 5 mg oral tablet) 1 tab(s) [...] Vaginal bleeding Duration: 90 Days Managed by OB-TRAIN EXAMINER Unchanged nortriptyline (nortriptyline 50 mg oral capsule) [...] may report side effects to FDA at 5-799-LGL-2775. What other drugs will affect acetaminophen and [...] affect acetaminophen and hydrocodone, including prescription and qivl-yhl-ftlrhpx medicines, vitamins, and herbal products. Not all [...] to ensure that the information provided by [employer]. ('Multum') is accurate, up-to-date, and complete, but no guarantee is made to that effect. Drug information contained herein may be time sensitive. Wordlock information has been compiled for use by healthcare practitioners and consumers in the [place] and therefore Wordlock does not warrant that uses outside of the [place] are appropriate, unless specifically indicated otherwise. Forsevas drug information does not endorse drugs, diagnose patients or recommend therapy. Forsevas drug information is an informational resource designed [...] effective or appropriate for any given patient. Wordlock does not assume any responsibility for any aspect of healthcare administered with the aid of information Wordlock provides. The information contained herein is not intended to cover all possible uses, directions, precautions, warnings, drug interactions, allergic reactions, or adverse effects. If you have questions about the drugs you are taking, check with your doctor, nurse or pharmacist. Copyright 7593-0266 [employer]. Version: 19.. Revision Date: 10/18/2022. ondansetron (oral) [...] may report side effects to FDA at 3-276-KXF-7317. What other drugs will affect ondansetron? Ondansetron [...] interact with ondansetron. This includes prescription and tcdi-kos-kvdihti medicines, vitamins, and herbal products. Give a [...] to ensure that the information provided by [employer]. ('Wordlock') is accurate, up-to-date, and complete, but no guarantee is made to that effect. Drug information contained herein may be time sensitive. Wordlock information has been compiled for use by healthcare practitioners and consumers in the [place] and therefore Wordlock does not warrant that uses outside of the [place] are appropriate, unless specifically indicated otherwise. Wordlock's drug information does not endorse drugs, diagnose patients or recommend therapy. Forsevas drug information is an informational resource designed [...] effective or appropriate for any given patient. Wordlock does not assume any responsibility for any aspect of healthcare administered with the aid of information Wordlock provides. The information contained herein is not intended to cover all possible uses, directions, precautions, warnings, drug interactions, allergic reactions, or adverse effects. If you have questions about the drugs you are taking, check with your doctor, nurse or pharmacist. Copyright 6519-8483 [employer], [facility]. Version: 16.. Revision Date: 09/30/2022. [...] the ears or bruising around the eyes 8533-7573 [employer]. [address] [place] [address]. All rights reserved. This information is not intended as a substitute for professional medical care. Always follow your healthcare professional's instructions. Additional Information VACCINATE! IT SAVES LIVES! Members of the community who have not yet received the COVID-19 vaccine and would like to receive it can visit one of [facility] vaccine clinics. There are many vaccine clinic locations within the [facility]. For locations and available times, please visit www.gettheshot.coronavirus.[place]. gov/. It is important to note that some COVID mobile vaccine clinics are held outdoors and may be canceled in rainy or stormy conditions. To learn more about pediatric vaccinations (ages 5-11), we invite you to visit the [facility] webpage. https://www.[facility].org/p ages/7403-Kvcyq-Vwgcfrfobeo-Freq kzeuad-Lwkgv-Wajmydgid.html To learn more about the COVID-19 vaccine, we invite you to visit the CDC website for a list of frequently asked questions. https://www.cdc.gov/coronavirus/ 2019-ncov/vaccines/faq.html [facility] Patient Portal Access Instructions: Stay connected with your healthcare team and access your personal medical information anytime with the [facility] Patient Portal. If you would like a full copy of your medical records please contact the [facility] Medical Records Department Tuesday through Tuesday between 8a.m. and 4:30p.m. Please follow the directions below to access the portal: 1.Access the email account you provided upon registration to the hospital.2.Look for an invitation email from [facility].3.Open the email and access the invitation link: Accept Invitation to [facility]4.Fill in the required lee to create your account. Sign into [email or web address] with your username and password that you [...] you will allow to register on the [facility] Patient Portal for access to your information. You can also access the [facility] Patient Portal on the [employer] helder. Simply click on Health Records under Health Data and then click on the Curse logo. HOW TO SAFELY DISPOSE OF PRESCRIPTION [...] Call your local pharmacy or go to [email or web address] to find one close to you.3.Make use of household items: Use cat litter or old coffee grounds to dispose medications if other options are not available. Mix your drugs with these household products, seal them in an airtight container and throw it into the garbage. Call [facility]: [phone] to be sure your drugs can be [...] aware that I should contact my doctor. Patient/Fraud Examiner Signature: Date/Time: Relationship to Patient: Witness Name/Signature: Date/Time: [facility] 02-17-2023 Note ORIGINAL EXAMINATION: CT HEAD TECHNIQUE: [...] Date: 02/17/2023 9:26:46 AM Ordering Provider: [facility] 01-27-2023 Note . MICRO - Microbiology PROCEDURE: [...] Locations *1: This test was performed at: [facility], [address] [place] [address], [address] , [facility] 01-23-2023 Hospital Discharge instructions Patient Education 01/23/2023 12:17:26 AA Dara LOFTON (CUSTOM) Result type:CT Abd/Pelvis w/ IV Contrast Only Result date:January 23, 2023 11:34 EST Result status:Auth (Verified) Result title:CT ABD/PELVIS W/ IV CONTRAST ONLY Performed by:ORLIN TRUJILLO MD on January 23, 2023 11:08 EST Cosigned by:ORLIN TRUJILLO MD Verified by:ORLIN TRUJILLO MD on January 23, 2023 11:34 EST Encounter info:[id number], [facility], Emergency, 01/23/2023 - Contributor system:[employer] * Final Report * [id number] ORIGINAL EXAMINATION: CT OF THE ABDOMEN AND [...] Document Reviewed: 02/15/2014 ExitCare Patient Information 2015 [employer] [facility]. This information is not intended to replace [...] or as directed by your healthcare provider [phone] [employer]. [address] [place] [address]. All rights reserved. This information is not [...] foods again, start with small amounts of ambn-cm-kveuis, low-fat foods. These include apple sauce, toast, [...] increase stomach acid. Don't use aspirin or rdls-mss-ffcoklw pain and fever medicines, if possible. This includes nonsteroidal anti-inflammatory drugs (NSAIDs). Lose excess weight. Finish eating at least 2 hours before you go to bed or lie down. Raise the head of your bed. [phone] [employer]. [address] [place] [address], [place] [address]. All rights reserved. This information is not intended as a substitute for professional medical care. Always follow your healthcare professional's instructions. Follow Up Care 01/23/2023 09:05:26 With:Go to emergency room if symptoms worsen Address:Unknown When:2-4 days With:ARAM JOHNSON DO Address: [address] [place] [phone] When:2-4 days [facility] 01-23-2023 Emergency department Discharge summary Discharge Instructions Thank you for allowing [facility] to assist you with your healthcare needs. [...] JOHNSON DO When Within 2-4 days Where: [address] [place] [phone] Allergies Naprosyn (Nausea) aspirin (NAUSEA) Medications Please [...] Vaginal bleeding Duration: 90 Days Managed by OB-TRAIN EXAMINER Unchanged nortriptyline (nortriptyline 50 mg oral capsule) [...] may report side effects to FDA at 9-362-INW-4886. What other drugs will affect cephalexin? Tell your doctor about all your other medicines, especially: metformin; or probenecid. This list is not complete. Other drugs may affect cephalexin, including prescription and rfvq-ahb-eyiikch medicines, vitamins, and herbal products. Not all [...] to ensure that the information provided by [employer]. ('Multum') is accurate, up-to-date, and complete, but no guarantee is made to that effect. Drug information contained herein may be time sensitive. Wordlock information has been compiled for use by healthcare practitioners and consumers in the [place] and therefore Wordlock does not warrant that uses outside of the [place] are appropriate, unless specifically indicated otherwise. Wordlock's drug information does not endorse drugs, diagnose patients or recommend therapy. Forsevas drug information is an informational resource designed [...] effective or appropriate for any given patient. [facility] does not assume any responsibility for any aspect of healthcare administered with the aid of information [facility] provides. The information contained herein is not intended to cover all possible uses, directions, precautions, warnings, drug interactions, allergic reactions, or adverse effects. If you have questions about the drugs you are taking, check with your doctor, nurse or pharmacist. Copyright 7157-1664 [employer]. Version: 12.. Revision Date: 09/29/2022. Education Materials Result type: CT Abd/Pelvis w/ IV Contrast Only Result date: January 23, 2023 11:34 EST Result status: Auth (Verified) Result title: CT ABD/PELVIS W/ IV CONTRAST ONLY Performed by: ORLNI TRUJILLO MD on January 23, 2023 11:08 EST Cosigned by: ORLIN TRUJILLO MD Verified by: ORLIN TRUJILLO MD on January 23, 2023 11:34 EST Encounter info: [id number], [facility], [facility] - Contributor system: [employer] * Final Report * [id number] ORIGINAL EXAMINATION: CT OF THE ABDOMEN AND [...] Document Reviewed: 02/15/2014 ExitCare Patient Information 2015 [facility]. This information is not intended to replace [...] or as directed by your healthcare provider [phone] [employer]. [address] [place] [address], [place] [address]. All rights reserved. This information is not [...] foods again, start with small amounts of hwny-uy-usbqqr, low-fat foods. These include apple sauce, toast, [...] increase stomach acid. Don't use aspirin or lddx-nhs-nqsdjfx pain and fever medicines, if possible. This includes nonsteroidal anti-inflammatory drugs (NSAIDs). Lose excess weight. Finish eating at least 2 hours before you go to bed or lie down. Raise the head of your bed. 9683-1594 [employer]. [address] [place] [address], [place] [address]. All rights reserved. This information is not intended as a substitute for professional medical care. Always follow your healthcare professional's instructions. Additional Information VACCINATE! IT SAVES LIVES! Members of the community who have not yet received the COVID-19 vaccine and would like to receive it can visit one of [facility] vaccine clinics. There are many vaccine clinic locations within the [facility]. For locations and available times, please visit www.gettheshot.coronavirus.[place]. gov/. It is important to note that some COVID mobile vaccine clinics are held outdoors and may be canceled in rainy or stormy conditions. To learn more about pediatric vaccinations (ages 5-11), we invite you to visit the [facility] webpage. https://www.Online [facility].org/p ages/9704-Cuuwc-Sbbzbbonatz-Freq ajhdqi-Skiff-Dfhojqlnw.html To learn more about the COVID-19 vaccine, we invite you to visit the CDC website for a list of frequently asked questions. https://www.cdc.gov/coronavirus/ 2019-ncov/vaccines/faq.html [facility] Patient Portal Access Instructions: Stay connected with your healthcare team and access your personal medical information anytime with the [facility] Patient Portal. If you would like a full copy of your medical records please contact the [facility] Medical Records Department Tuesday through Tuesday between 8a.m. and 4:30p.m. Please follow the directions below to access the portal: 1.Access the email account you provided upon registration to the [facility].2.Look for an invitation email from [facility].3.Open the email and access the invitation link: Accept Invitation to [facility]4.Fill in the required lee to create your account. Sign into [email or web address] with your username and password that you [...] you will allow to register on the [facility] Patient Portal for access to your information. You can also access the [facility] Patient Portal on the [employer]. Simply click on Health Records under Health Data and then click on the Curse logo. HOW TO SAFELY DISPOSE OF PRESCRIPTION [...] Call your local pharmacy or go to [email or web address] to find one close to you.3.Make use of household items: Use cat litter or old coffee grounds to dispose medications if other options are not available. Mix your drugs with these household products, seal them in an airtight container and throw it into the garbage. Call [facility]: [phone] to be sure your drugs can be [...] aware that I should contact my doctor. Patient/Fraud Examiner Signature: Date/Time: Relationship to Patient: Witness Name/Signature: Date/Time: [facility] 01-23-2023 Note ORIGINAL EXAMINATION: XR foot 2V [...] Date: 01/23/2023 12:06:18 PM [facility]ing [facility]23 Note ORIGINAL EXAMINATION: CT OF THE [...] Sign Date: 01/23/2023 12:02:52 PM Ordering Provider: [facility] 01-18-2023 Miscellaneous Notes Addended by: SATNAM RODRIGUEZ on: 01/18/2023 10:48 AM Modules accepted: Orders documented in this encounter [facility] 01-18-2023 Note HNO ID: [id number] Author: Satnam Rodriguez APRN.CNP Service: ? Author [...] worsening s/s. - BASIC METABOLIC PNL Satnam Rodirguez APRN.MOTORMAN/WOMAN [facility] 01-18-2023 Instructions Satnam Rodriguez APRN.MOTORMAN/WOMAN - 01/18/2023 8:00 AM EST ASSESSMENT/PLAN: 1. Leg cramps - ICD9: 729.82, ICD10: R25.2 If labs ok I will order magnesium Follow up with primary care provider Urgent follow up for worsening symptoms. - BASIC METABOLIC PNL documented in this encounter [facility] 01-18-2023 History of Present illness [...] s/s. - BASIC METABOLIC PNL Satnam Rodriguez APRN.MOTORMAN/WOMAN documented in this encounter [facility] 01-17-2023 Note HNO ID: [id number] Author: Whitley Miller APRN.MOTORMAN/WOMAN Service: ? Author Type: Nurse Practitioner Type: [...] expected course of illness Whitley Miller APRN.CNP [facility] 01-17-2023 Instructions Whitley Miller APRN.CNP - 01/17/2023 [...] for concern. INSTRUCTIONS: 1. You may use gesz-xtl-ytfofwc pain medication such as acetaminophen, ibuprofen, or [...] arms or legs. documented in this encounter [facility] 01-17-2023 History of Present illness [...] Discussed expected course of illness Whitley Miller APRN.MOTORMAN/WOMAN documented in this encounter [facility] 01-10-2023 Hospital Discharge instructions Patient [...] relieved by rest and mild pain reliever [phone] [employer]. [address] [place] [address]. All rights reserved. This information is not [...] Swelling, pain or redness in one leg 4280-3693 [employer]. [address] [place] [address]. All rights reserved. This information is not intended as a substitute for professional medical care. Always follow your healthcare professional's instructions. Follow Up Care 01/10/2023 08:29:14 With:PHYSICIAN, NOT RECORDED Address:Unknown When:2-4 days With:Follow up with primary care provider Address:Unknown When:2-4 days With:Call HALIMA Mercedes Pt. Refferral [phone] Address:Unknown When:2-4 days With:Go to emergency room if symptoms worsen Address:Unknown When:2-4 days [facility] 01-10-2023 Note Discharge Instructions Thank you for allowing [place] to assist you with your healthcare needs. [...] Up with Call HALIMA Mercedes Pt. Refferral [phone] When Within 2-4 days Follow Up with [...] Vaginal bleeding Duration: 90 Days Managed by OB-TRAIN EXAMINER Unchanged nortriptyline (nortriptyline 50 mg oral capsule) [...] may report side effects to FDA at 1-238-IME-5355. What other drugs will affect lorazepam? Taking [...] may affect lorazepam. This includes prescription and fqzb-hsh-clukwcd medicines, vitamins, and herbal products. Not all [...] to ensure that the information provided by [employer]. ('Multum') is accurate, up-to-date, and complete, but no guarantee is made to that effect. Drug information contained herein may be time sensitive. Wordlock information has been compiled for use by healthcare practitioners and consumers in the [place] and therefore Wordlock does not warrant that uses outside of the [place] are appropriate, unless specifically indicated otherwise. Forsevas drug information does not endorse drugs, diagnose patients or recommend therapy. Responsa drug information is an informational resource designed [...] effective or appropriate for any given patient. Wordlock does not assume any responsibility for any aspect of healthcare administered with the aid of information Wordlock provides. The information contained herein is not intended to cover all possible uses, directions, precautions, warnings, drug interactions, allergic reactions, or adverse effects. If you have questions about the drugs you are taking, check with your doctor, nurse or pharmacist. Copyright 3787-7958 [employer]. Version: 10.04. Revision Date: 07/19/2022. Education Materials [...] relieved by rest and mild pain reliever 5501-1790 [employer]. [address] [facility], [place] [address]. All rights reserved. This information is not [...] Swelling, pain or redness in one leg 9967-4532 [employer]. [address] [place], [place] [address]. All rights reserved. This information is not intended as a substitute for professional medical care. Always follow your healthcare professional's instructions. Additional Information VACCINATE! IT SAVES LIVES! Members of the community who have not yet received the COVID-19 vaccine and would like to receive it can visit one of [facility] vaccine clinics. There are many vaccine clinic locations within the [facility]. For locations and available times, please visit www.[email or web address].[place]. gov/. It is important to note that some COVID mobile vaccine clinics are held outdoors and may be canceled in rainy or stormy conditions. To learn more about pediatric vaccinations (ages 5-11), we invite you to visit the [facility] webpage. https://www.[facility].org/p ages/6462-Elupg-Rgjshtzellj-Freq obdusu-Hasdx-Ieokuofod.html To learn more about the COVID-19 vaccine, we invite you to visit the CDC website for a list of frequently asked questions. https://www.cdc.gov/coronavirus/ 2019-ncov/vaccines/faq.html [facility] Patient Portal Access Instructions: Stay connected with your healthcare team and access your personal medical information anytime with the [facility] Patient Portal. If you would like a full copy of your medical records please contact the [facility] Medical Records Department Tuesday through Tuesday between 8a.m. and 4:30p.m. Please follow the directions below to access the portal: 1.Access the email account you provided upon registration to the [facility].2.Look for an invitation email from [facility].3.Open the email and access the invitation link: Accept Invitation to [facility]4.Fill in the required lee to create your account. Sign into [email or web address] with your username and password that you [...] you will allow to register on the [facility] Patient Portal for access to your information. You can also access the [facility] Patient Portal on the [employer] helder. Simply click on Health Records under Health Data and then click on the Curse logo. HOW TO SAFELY DISPOSE OF PRESCRIPTION [...] Call your local pharmacy or go to http://CityHawk.Planet Ivy/6B0Hn5d to find one close to you.3.Make use of household items: Use cat litter or old coffee grounds to dispose medications if other options are not available. Mix your drugs with these household products, seal them in an airtight container and throw it into the garbage. Call [facility]: [phone] to be sure your drugs can be [...] aware that I should contact my doctor. Patient/Fraud Examiner Signature: Date/Time: Relationship to Patient: Witness Name/Signature: Date/Time: [facility] 01-10-2023 Note ORIGINAL EXAMINATION: ONE XRAY VIEW [...] 01/10/2023 9:28:16 AM Ordering Provider: SHEELA GARRIDO [facility] 01-10-2023 Note Sinus rhythm Borderline left axis deviation Low voltage, precordial leads Abnormal R-wave progression, late transition Abnormal T, consider ischemia, diffuse leads Prolonged QT interval Somewhat similar to EKG December 24, 2022. Electronic Signature: SHEELA GARRIDO MD 01/10/2023 09:38:48 [facility] 12-27-2022 Note . MICRO - Microbiology PROCEDURE: [...] Locations *1: This test was performed at: [facility], [address] [place] [address], [id number] , [facility] ([place]) 12-24-2022 Note ORIGINAL EXAMINATION: CT OF THE [...] 12/24/2022 9:26:09 PM Ordering Provider: FABIAN MOLINA [facility] 12-24-2022 Note ORIGINAL EXAMINATION: CTA OF THE [...] 12/24/2022 9:27:46 PM Ordering Provider: FABIAN MOLINA [facility] 12-15-2022 Miscellaneous Notes Patient notified and verbalized understanding of instructions given.Inez Stoll LPN Please call patient and let her know that Macrobid twice a day for 5 days is being called in for urine culture results which are mildly contaminated. If symptoms do not improve after antibiotic. Please have patient call primary care provider documented in this encounter [facility] 12-15-2022 Miscellaneous Notes Patient identified by name and date of . Patient advised of lab results. She is currently taking Levothyroxine 175 mcg. She is advised to see her PCP for medication adjustment. [facility] does not manage chronic disease medications. Labs are printed for her and left at [facility] desk for pickup since her PCP is not in [facility] system. Urine culture is still pending; if it shows any bacterial growth an antibiotic will be sent to her pharmacy. Whitley Miller APRN.MARIA TERESA documented in this encounter [facility] 12-14-2022 Note HNO ID: [id number] Author: Whitley Miller APRN.CNP Service: ? Author [...] - CBC + DIFF E John [employer] Student (more content not included)... [facility] 12-14-2022 Instructions Whitley Miller APRN.MOTORMAN/WOMAN - 12/14/2022 11:56 AM EDT ASSESSMENT/PLAN: 1. [...] - CBC + DIFF E John [employer] Student TEACHING PROVIDER (Physician/PA/TOP HAT BODY MAKER) NOTE OF PERSONAL INVOLVEMENT IN CARE: I have personally seen and examined the patient and performed the medical decision-making components. I have reviewed the Advanced Practice Registered Nurse (TOP HAT BODY MAKER) Student's documentation and verified the findings in the note as written. Any additions or changes are noted in bold/italics. Signature: Whitley Miller Date: 12/14/2022 Time: 11:55 AM documented in this encounter [facility] 12-14-2022 History of Present illness Narrative Images from the original note were not included. This note was created using Apiphany. Subjective Kamala Carmen is a 52 year [...] - CBC + DIFF E John [employer] Student TEACHING PROVIDER (Physician/ROBLES/MICAH) NOTE OF PERSONAL INVOLVEMENT IN CARE: I have personally seen and examined the patient and performed the medical decision-making components. I have reviewed the Advanced Practice Registered Nurse (TOP HAT BODY MAKER) Student's documentation and verified the findings in the note as written. Any additions or changes are noted in bold/italics. Signature: Whitley Miller Date: 12/14/2022 Time: 11:55 AM documented in this encounter [facility] 11-20-2022 Evaluation + Plan note Future Scheduled TestsIron Level 11/20/22Thyroid Stimulating Hormone 11/20/22Free T4 11/20/22A1C Hemoglobin 11/20/22Complete Blood Count 11/20/22Lipid Profile 11/20/22Albumin/Creatinine Ratio, Random Urine 11/20/22Microalbumin Level Urine 05/17/22Vitamin D Level 11/20/22Complete Metabolic Panel 11/20/22TIBC 11/20/22 [facility] 11-16-2022 Note HNO ID: [id number] Author: Dion Escobar PA-C Service: ? Author Type: Physician Welder And Fitter Type: Progress Notes Filed: 11/16/2022 12:55 PM Note Text: This note was created using Predictryriter. Subjective Kamala Carmen is a 52 year old female. HPI Patient presents with full complaints. She was in the [place] emergency department November 11 and had a [...] and she has an open wound. No zver-yvj-hytqbvq medicines tried or bandages. Patient also complaining [...] of bronchitis. Discus (more content not included)... [facility] 11-16-2022 History of Present illness Narrative Images from the original note were not included. This note was created using NoteWriter. Subjective Kamala Carmen is a 52 year old female. HPI Patient presents with full complaints. She was in the [place] emergency department November 11 and had a [...] and she has an open wound. No tkpc-etv-gdugfej medicines tried or bandages. Patient also complaining [...] Dion Escobar PA-C documented in this encounter [facility] 10-06-2022 Note . MICRO - [...] Locations *1: This test was performed at: [facility], [address] [place] [address], [address] , [facility] ([place] 10-03-2022 Hospital Discharge instructions Patient Education 10/03/2022 [...] Swelling, pain or redness in one leg 4885-7581 [employer]. [address] [place] [address]. All rights reserved. This information is not [...] swelling in the outer vaginal area (labia) 1028-8052 [employer]. [address] [place] [address]. All rights reserved. This information is not intended as a substitute for professional medical care. Always follow your healthcare professional's instructions. [facility] 10/03/2022 13:22:37 With:JAI GANT DO Address: [address] [facility] [place] [phone] When:2-4 days Comments:Schedule appointment as soon as possible [facility] 10-03-2022 Emergency department Discharge summary Discharge Instructions Thank you for allowing [facility] to assist you with your healthcare needs. [...] Schedule appointment as soon as possible Where: [address] [place] [address] [place] [phone] Allergies Naprosyn (Nausea) aspirin (NAUSEA) Medications Please [...] Vaginal bleeding Duration: 90 Days Managed by OB-TRAIN EXAMINER Unchanged nortriptyline (nortriptyline 50 mg oral capsule) [...] Swelling, pain or redness in one leg 0574-4237 [employer]. [address] [place] [address]. All rights reserved. This information is not [...] swelling in the outer vaginal area (labia) 9602-4160 [employer]. [address] [place] [address], [place] [address]. All rights reserved. This information is not intended as a substitute for professional medical care. Always follow your healthcare professional's instructions. Additional Information VACCINATE! IT SAVES LIVES! Members of the community who have not yet received the COVID-19 vaccine and would like to receive it can visit one of [facility] vaccine clinics. There are many vaccine clinic locations within the [facility]. For locations and available times, please visit www.[email or web address]. gov/. It is important to note that some COVID mobile vaccine clinics are held outdoors and may be canceled in rainy or stormy conditions. To learn more about pediatric vaccinations (ages 5-11), we invite you to visit the [facility] webpage. https://www.Online Warm[facility]erss.org/p ages/9401-Ozxwd-Bryyzrkipkt-Freq ypfycc-Luymm-Dsihtaolm.html To learn more about the COVID-19 vaccine, we invite you to visit the CDC website for a list of frequently asked questions. https://www.cdc.gov/coronavirus/ 2019-ncov/vaccines/faq.html [facility] Patient Portal Access Instructions: Stay connected with your healthcare team and access your personal medical information anytime with the [facility] Patient Portal. If you would like a full copy of your medical records please contact the [facility] Medical Records Department Tuesday through Tuesday between 8a.m. and 4:30p.m. Please follow the directions below to access the portal: 1.Access the email account you provided upon registration to the [facility].2.Look for an invitation email from [facility].3.Open the email and access the invitation link: Accept Invitation to [facility]4.Fill in the required lee to create your account. Sign into [email or web address] with your username and password that you [...] you will allow to register on the [facility] Patient Portal for access to your information. You can also access the [facility] Portal on the GdeSlon. Simply click on Health Records under Health Data and then click on the Curse logo. HOW TO SAFELY DISPOSE OF PRESCRIPTION [...] Call your local pharmacy or go to http://CityHawk.Planet Ivy/7X3Sg7f to find one close to you.3.Make use of household items: Use cat litter or old coffee grounds to dispose medications if other options are not available. Mix your drugs with these household products, seal them in an airtight container and throw it into the garbage. Call [facility]: [phone] to be sure your drugs can be [...] aware that I should contact my doctor. Patient/Fraud Examiner Signature: Date/Time: Relationship to Patient: Witness Name/Signature: Date/Time: [facility] 10-03-2022 Note ORIGINAL EXAMINATION: CTA OF THE [...] 10/03/2022 3:25:19 PM Ordering Provider: ANGIE CRUZ [facility] 10-03-2022 Note ORIGINAL EXAMINATION: CT OF THE [...] Sign Date: 10/03/2022 3:27:50 PM Ordering Provider: [facility] 10-03-2022 Note ORIGINAL EXAMINATION: ONE XRAY VIEW [...] Sign Date: 10/03/2022 2:58:22 PM Ordering Provider: [facility] 10-03-2022 Note Sinus tachycardia Electronic Signature: SHEELA GARRIDO MD 10/03/2022 13:53:26 [facility] 09-23-2022 Hospital Discharge instructions Patient Education 09/23/2022 [...] worsens and is not improved with elevation. 2143-7487 [employer]. [address] [place] [address]. All rights reserved. This information is not intended as a substitute for professional medical care. Always follow your healthcare professional's instructions. [facility] 09/22/2022 23:40:44 With:LUZ ELENA BHAT MD Address: [facility] [place] [address]- When:2-4 days [facility] Tonya 09-23-2022 Note Discharge Instructions Thank you for allowing [facility] to assist you with your healthcare needs. [...] Where: [facility] [place] [address]- Allergies Naprosyn (Nausea) aspirin (NAUSEA) Medications [...] Vaginal bleeding Duration: 90 Days Managed by OB-TRAIN EXAMINER Unchanged nortriptyline (nortriptyline 50 mg oral capsule) [...] worsens and is not improved with elevation. 7167-0920 [employer]. [address] [place] [address], [place] [address]. All rights reserved. This information is not intended as a substitute for professional medical care. Always follow your healthcare professional's instructions. Additional Information VACCINATE! IT SAVES LIVES! Members of the community who have not yet received the COVID-19 vaccine and would like to receive it can visit one of [facility] vaccine clinics. There are many vaccine clinic locations within the [facility]. For locations and available times, please visit www.[email or web address] gov/. It is important to note that some COVID mobile vaccine clinics are held outdoors and may be canceled in rainy or stormy conditions. To learn more about pediatric vaccinations (ages 5-11), we invite you to visit the [facility] webpage. https://www.Online Warmongerss.org/p ages/4284-Qcinf-Srhoawhzsdt-Freq mmpyhb-Utnlo-Sdcmylnar.html To learn more about the COVID-19 vaccine, we invite you to visit the CDC website for a list of frequently asked questions. https://www.cdc.gov/coronavirus/ 2019-ncov/vaccines/faq.html [facility] Patient Portal Access Instructions: Stay connected with your healthcare team and access your personal medical information anytime with the [facility] Patient Portal. If you would like a full copy of your medical records please contact the [facility] Medical Records Department Tuesday through Tuesday between 8a.m. and 4:30p.m. Please follow the directions below to access the portal: 1.Access the email account you provided upon registration to the hospital.2.Look for an invitation email from [facility].3.Open the email and access the invitation link: Accept Invitation to [facility]4.Fill in the required lee to create your account. Sign into [email or web address] with your username and password that you [...] you will allow to register on the [facility] Patient Portal for access to your information. You can also access the [facility] Patient Portal on the GdeSlon. Simply click on Health Records under Health Data and then click on the Curse logo. HOW TO SAFELY DISPOSE OF PRESCRIPTION [...] Call your local pharmacy or go to http://CityHawk.Planet Ivy/3H5Lq5j to find one close to you.3.Make use of household items: Use cat litter or old coffee grounds to dispose medications if other options are not available. Mix your drugs with these household products, seal them in an airtight container and throw it into the garbage. Call [facility]: [phone] to be sure your drugs can be [...] aware that I should contact my doctor. Patient/Fraud Examiner Signature: Date/Time: Relationship to Patient: Witness Name/Signature: Date/Time: [facility] 09-23-2022 Note ORIGINAL EXAMINATION: ONE XRAY VIEW [...] Sign Date: 09/23/2022 12:30:42 AM Ordering Provider: [facility] 08-17-2022 Note HNO ID: [id number] Author: Whitley Miller APRN.MOTORMAN/WOMAN Service: ? Author Type: Nurse Practitioner Type: Progress Notes Filed: 08/17/2022 2:48 PM Note Text: Subjective HPI Kamala Carmen is a 52 year old female who presents with a headache and nausea. She was seen here on 08/13 for a fall that occurred 2 days prior. She was referred to ER. Patient states she went to [facility] ER for treatment, had a CT scan [...] course of illness Whitley Miller APRN.MARIA TERESA [facility] 08-17-2022 Instructions Whitley Miller APRN.MARIA TERESA - [...] Discussed expected course of illness Whitley Miller APRN.MOTORMAN/WOMAN documented in this encounter [facility] 08-17-2022 History of Present illness Narrative Subjective HPI Kamala Carmen is a 52 year old female who presents with a headache and nausea. She was seen here on 08/13 for a fall that occurred 2 days prior. She was referred to ER. Patient states she went to [facility] ER for treatment, had a CT scan [...] Discussed expected course of illness Whitley Miller APRN.MOTORMAN/WOMAN documented in this encounter [facility] 08-13-2022 Hospital Discharge instructions Patient [...] splint gets wet, dry it with a behavioral sciences department chair on a cool setting. Place an ice [...] doesn t get wet. You may use wzpb-tlk-twhndoz pain medicine to control pain, unless another [...] cast or splint develops cracks or breaks 1415-4480 [employer]. [address] [place] [address]. All rights reserved. This information is not intended as a substitute for professional medical care. Always follow your healthcare professional's instructions. Follow Up Care 08/13/2022 20:56:52 With:GEOFFREY PAGE MD Address: [address] [place] [address] & [place] [address]- [phone] When:2-4 days [facility] 08-13-2022 Note ORIGINAL EXAMINATION: CT [...] 08/13/2022 10:05:04 PM Ordering Provider: INA DICKSON [facility] 08-13-2022 Note Discharge Instructions Thank you for allowing [facility] to assist you with your healthcare needs. [...] MD When Within 2-4 days Where: [address] [facility] [place] [phone] Allergies Naprosyn (Nausea) aspirin (NAUSEA) Medications Please [...] Vaginal bleeding Duration: 90 Days Managed by OB-TRAIN EXAMINER Unchanged nortriptyline (nortriptyline 50 mg oral capsule) [...] splint gets wet, dry it with a behavioral sciences department chair on a cool setting. Place an ice [...] doesn t get wet. You may use mozt-yii-hmatfno pain medicine to control pain, unless another [...] cast or splint develops cracks or breaks 4339-6505 [employer]. [address] [place] [address]. All rights reserved. This information is not intended as a substitute for professional medical care. Always follow your healthcare professional's instructions. Additional Information VACCINATE! IT SAVES LIVES! Members of the community who have not yet received the COVID-19 vaccine and would like to receive it can visit one of [facility] vaccine clinics. There are many vaccine clinic locations within the [facility]. For locations and available times, please visit www.gettheshot.coronavirus.[place]. gov/. It is important to note that some COVID mobile vaccine clinics are held outdoors and may be canceled in rainy or stormy conditions. To learn more about pediatric vaccinations (ages 5-11), we invite you to visit the [facility] webpage. https://www.[facility].org/p ages/1233-Yvuhj-Gfqcwxcrdiv-Freq hlolzx-Ppwic-Ewirakhgz.html To learn more about the COVID-19 vaccine, we invite you to visit the CDC website for a list of frequently asked questions. https://www.cdc.gov/coronavirus/ 2019-ncov/vaccines/faq.html [facility] Patient Portal Access Instructions: Stay connected with your healthcare team and access your personal medical information anytime with the [facility] Patient Portal. If you would like a full copy of your medical records please contact the [facility] Medical Records Department Tuesday through Tuesday between 8a.m. and 4:30p.m. Please follow the directions below to access the portal: 1.Access the email account you provided upon registration to the [facility].2.Look for an invitation email from [facility].3.Open the email and access the invitation link: Accept Invitation to [facility]4.Fill in the required lee to create your account. Sign into [email or web address] with your username and password that you [...] you will allow to register on the [facility] Patient Portal for access to your information. You can also access the [facility] Patient Portal on the GdeSlon. Simply click on Health Records under Health [...] Call your local pharmacy or go to http://CityHawk.Planet Ivy/9K3Oi5n to find one close to you.3.Make use of household items: Use cat litter or old coffee grounds to dispose medications if other options are not available. Mix your drugs with these household products, seal them in an airtight container and throw it into the garbage. Call [facility]: [phone] to be sure your drugs can be [...] aware that I should contact my doctor. Patient/Fraud Examiner Signature: Date/Time: Relationship to Patient: Witness Name/Signature: Date/Time: [facility] 08-13-2022 Note ORIGINAL EXAMINATION: TWO [...] Sign Date: 08/13/2022 10:01:45 PM Ordering Provider: [facility] 08-13-2022 Note ORIGINAL EXAMINATION: XRAY VIEWS [...] Sign Date: 08/13/2022 9:51:40 PM Ordering Provider: [facility] 08-13-2022 Note ORIGINAL EXAMINATION: CT OF [...] Sign Date: 08/13/2022 10:05:04 PM Ordering Provider: [facility] 08-13-2022 Note ORIGINAL EXAMINATION: TWO XRAY [...] Sign Date: 08/13/2022 10:01:45 PM Ordering Provider: [facility] 08-13-2022 Note ORIGINAL EXAMINATION: XRAY VIEWS [...] Sign Date: 08/13/2022 9:51:40 PM Ordering Provider: [facility] 08-13-2022 Note HNO ID: [id number] Author: Satnam Rodriguez APRN.MOTORMAN/WOMAN Service: ? Author Type: Nurse Practitioner Type: Progress Notes Filed: 08/13/2022 7:30 PM Note Text: Patient triaged at [facility]. Here today with fall 2 days ago, hit head, having h/a as well as multi joint pain. I advised patient to go to ER. Unclear what ER patient will go to. [facility] 08-13-2022 History of Present illness Narrative Patient triaged at [facility]. Here today with fall 2 days ago, hit head, having h/a as well as multi joint pain. I advised patient to go to ER. Unclear what ER patient will go to. documented in this encounter [facility] 08-05-2022 Note HNO ID: [id number] Author: RT Christiano(R) Service: ? Author Type: Steel Chipper Type: Progress Notes Filed: 08/05/2022 6:34 PM [...] RT Christiano(R) August 05, 2022 6:22 PM [facility] 08-05-2022 Note HNO ID: [id number] Author: Whitley Miller APRN.MARIA TERESA Service: ? [...] are noted. IMPRESSION: No acute osseous abnormality Control Clerk Food And Beverage: ADAM Transcribe Date/Time: Aug 05 2022 6:39P [...] course of illness Whitley Miller APRN.MARIA TERESA [facility] 07-28-2022 Note HNO ID: [id number] Author: Dion Escobar PA-C Service: ? Author Type: Physician Welder And Fitter Type: Progress Notes Filed: 07/28/2022 11:45 AM Note Text: This note was created using Apiphany. Subjective Kamala Carmen is a 51 year [...] numbness or tingling. She has taken Advil cyto-oyj-xkzrvus for pain. Review of Systems Constitutional: Negative. [...] ICD9: 848.9, ICD10: T14.8XXA Dion Escobar PA-C [facility] 07-28-2022 Note HNO ID: [id number] Author: RT Mimi(R) Service: Radiology Author Type: [...] RT Mimi(R) July 28, 2022 10:10 AM [facility] 07-28-2022 History of Present illness Narrative This note was created using REscourter. Subjective Kamala Carmen is a 51 year [...] numbness or tingling. She has taken Advil xxgj-yrw-kmbecfw for pain. Review of Systems Constitutional: Negative. [...] Dion Escobar PA-C documented in this encounter [facility] 05-18-2022 Note HNO ID: [id number] Author: Satnam Rodriguez APRN.MOTORMAN/WOMAN Service: ? Author Type: Nurse Practitioner Type: [...] 100 MG TABLET Satnam Rodriguez APRN.MARIA TERESA [facility] 05-04-2022 Note HNO ID: [id number] Author: Dion Escobar PA-C Service: ? Author Type: Physician Welder And Fitter Type: Progress Notes Filed: 05/04/2022 4:03 PM Note Text: This note was created using Predictryriter. Subjective Kamala Carmen is a 51 year [...] in the emergency department. Patient went to [facility]. Report given via ER passport. Dion Escobar PA-C [facility] 05-04-2022 History of Present illness Narrative Images from the original note were not included. This note was created using Apiphany. Subjective Kamala Carmen is a 51 year [...] in the emergency department. Patient went to [facility]. Report given via ER passport. Dion Escobar PA-C documented in this encounter [facility] 04-17-2022 Note HNO ID: [id number] Author: Jessica Mcintosh APRN.MOTORMAN/WOMAN Service: ? Author Type: Nurse Practitioner Type: Progress Notes Filed: 04/17/2022 1:41 PM Note Text: Subjective The history is provided by the patient and a relative. No foreign language instructor was used. HPI Kamala Carmen is a [...] have confirmed and edited as necessary, the [facility] Review of Systems Constitutional: Negative for chills, [...] detail warranting prompt ER evaluation. Jessica Mcintosh APRN.[facility] 04-17-2022 History of Present illness Narrative Images from the original note were not included. Subjective The history is provided by the patient and a relative. No foreign language instructor was used. HPI Kamala Carmen is a [...] have confirmed and edited as necessary, the [facility] Review of Systems Constitutional: Negative for chills, [...] Mcintosh APRN.MARIA TERESA documented in this encounter [facility] 02-26-2022 Miscellaneous Notes Patient notified.Inez Stoll LPN Negative for flu and covid please notify thank you documented in this encounter [facility] 02-25-2022 Influenza virus A and B RNA and SARS-CoV-2 (COVID-19) N gene panel IZZY+probe (Resp) COVID 19 RESULT: SARS-CoV-2 (Agent of COVID-19) Not Detected by RT-PCR or equivalent method. alexey HKBC-LxU-7_Znjzm [employer] (GARCIA)_EUA This test was developed and its performance characteristics determined by [facility]'s [facility] [place]. This test has been authorized by FDA under an Emergency Use Authorization (EUA). This test has been validated in accordance with the FDA's Guidance Document Policy for Diagnostics Testing in Laboratories Certified to Perform High Complexity Testing under CLIA prior to Emergency use Authorization for Coronavirus Disease 2019 during the Public Health Emergency issued on April 28, 2019. Test performed by [facility], [facility] [place], [facility] [place] [address]. INFLUENZA A PCR: Negative for Influenza A by RT-PCR INFLUENZA B PCR: Negative for Influenza B by RT-PCR [facility] Middle ear effusion, right- Primary Irritation of external ear canal, right [facility] Diagnosis Viral URI with cough- Primary Acute upper respiratory infections of unspecified site Exacerbation of asthma, unspecified asthma severity, unspecified whether persistent [facility] Diagnosis Post-nasal drainage- Primary Unspecified sinusitis (chronic) Neck pain Cervicalgia [facility] Diagnosis Cellulitis of skin- Primary Cellulitis and abscess of unspecified site [facility] Fall, initial encounter- Primary Unspecified site of sprain and strain [facility] Diagnosis Injury of head, initial encounter- Primary [facility] Headache, unspecified headache type- Primary Nausea Nausea alone [facility] Diagnosis Intertrigo- Primary Other specified erythematous condition Skin sore Unspecified disorder of skin and subcutaneous tissue Bronchitis Bronchitis, not specified as acute or chronic [facility] Diagnosis Acute midline low back pain without sciatica- Primary Fatigue, unspecified type [facility] Diagnosis Headache, unspecified headache type- Primary [facility]* Diagnosis Leg cramps- Primary Cramp of limb documented in this encounter [facility] course Narrative No data available for this section [facility] Hospital Discharge instructions No data available for this section [facility] Progress note No data available for this section [facility] Reason for referral (narrative)* Diagnostic Procedure Only (Urgent) - Closed Specialty Diagnoses / Procedures Referred By Contac t Referred To Contact XR IMAGING Diagnoses Fall, initial encounter Procedures XR RIBS/CHEST 3V AP RIB/OBLS/CXR LEFT RADEX RIBS UNI W/POSTEROANT CH MINIMUM 3 VIEWS Dion Escobar PA-C [address] [place] [address] Xr Imaging Referral ID Status Reason Start Date Expiration Date V isits Requested Visits Authorized [id number] Closed Auto-Generate d Referral 07/28/2022 08/27/2023 1 1 * Diagnostic Procedure Only (Urgent) - Closed Specialty Diagnoses / Procedures Referred By Contac t Referred To Contact XR IMAGING Diagnoses Fall, initial encounter Procedures XR LUMBAR GENERAL 3V AP/LAT/L5-S1 RADEX SPINE LUMBOSACRAL 2/3 VIEWS Dion Escobar PA-C [address] [place] [address] Xr Imaging Referral ID Status Reason Start Date Expiration Date V isits Requested Visits Authorized [id number] Closed Auto-Generate d Referral 07/28/2022 08/27/2023 1 1 * Diagnostic Procedure Only (Urgent) - Closed Specialty Diagnoses / Procedures Referred By Contac t Referred To Contact XR IMAGING Diagnoses Fall, initial encounter Procedures XR CERV OTHER 4V AP/LAT/OBL RADEX SPINE CERVICAL 4 OR 5 VIEWS Dion Escobar PA-C [address] [place] [address] Xr Imaging Referral ID Status Reason Start Date Expiration Date V isits Requested Visits Authorized [id number] Closed Auto-Generate d Referral 07/28/2022 08/27/2023 1 1 * Diagnostic Procedure Only (Urgent) - Closed Specialty Diagnoses / Procedures Referred By Jose Miguel armenta Referred To Contact XR IMAGING Diagnoses Fall, initial encounter Procedures XR FOREARM GENERAL 2V AP/LAT LEFT RADEX FOREARM 2 VIEWS Dion Escobar PA-C [address] [place] [address] Xr Imaging Referral ID Status Reason Start Date Expiration Date V isits Requested Visits Authorized [id number] Closed Auto-Generate d Referral 07/28/2022 08/27/2023 1 1 [facility] note* YVAN Michael: PERFORM Event Display: Patient Summary Documents Authored Date: [id number] [facility] Reason for Referral Status Reason Specialty Diagnoses / Procedures Re ferred By Contact Referred To Contact Open Pulmonary Disease Diagnoses Dyspnea, unspecified type Procedures Full PFT Study With Bronchodilator Mariela Vasquez MD [address] [place] [phone] Assessments Diagnosis Dyspnea, unspecified type Health Concerns [...] Member Role: Primary Care Physician Address: Address: [address] [place] [id number]- Name: LAURA RICHARDSON MD Position: ED Physician Member Role: Attending Physician Address: Address: [facility] [address] [place] [address]- Name: Shi Beaulieu RN Position: ED RN Member Role: ED RN Care Team Related Persons Name: MANOJ NOLASCO Watch Assembly Instructor Relationship Specialty Start Date End Date Milan Cervantes [address] [place] [address] PCP - General 11/10/06 Watch Assembly Instructor Relationship Specialty Start Date End Date Ysabel Lutz, MOTORMAN/WOMAN [address] [place] [address] PCP - General Family Medicine 02/25/22 Watch Assembly Instructor Relationship Specialty Start Date End Date Ysabel Lutz, MOTORMAN/WOMAN [address] [place] [place] [address] PCP - General Family Medicine 02/25/22 Watch Assembly Instructor Relationship Specialty Start Date End Date Ysabel Lutz, MOTORMAN/WOMAN [address] [place] [place] [address] PCP - General Family Medicine 02/25/22 Watch Assembly Instructor Relationship Specialty Start Date End Date Ysabel Lutz, MOTORMAN/WOMAN [address] [place] [place] [address] PCP - General Family Medicine 02/25/22 Watch Assembly Instructor Relationship Specialty Start Date End Date Clifton Bhat Chi [address] [facility] [address] [place] [address] PCP - General Gerontology 07/28/22 Watch Assembly Instructor Relationship Specialty Start Date End Date Clifton Bhat Chi [address] [facility] [address] [place] [address] PCP - General Gerontology 07/28/22 Watch Assembly Instructor Relationship Specialty Start Date End Date Clifton Bhat Chi [address] [facility] [address] [place] [address] PCP - General Gerontology 07/28/22 Watch Assembly Instructor Relationship Specialty Start Date End Date Aram Johnson DO [address] [facility] [address] [place], [place] [address] PCP - General Family Medicine 12/14/22 Watch Assembly Instructor Relationship Specialty Start Date End Date Aram Johnson DO [address] [facility] [address] [place], [place] [address] PCP - General Family Medicine 12/14/22 Watch Assembly Instructor Relationship Specialty Start Date End Date Aram JohnsonDO [address] [place] [address] PCP - General Family Medicine 12/14/22 Watch Assembly Instructor Relationship Specialty Start Date End Date Alex Aram Juice, DO [address] [place] [address] PCP - General Family Medicine 12/14/22 Watch Assembly Instructor Relationship Specialty Start Date End Date Aram Johnson DO [address] [place], [place] [address] PCP - General Family Medicine 12/14/22 Source Comments (unrecognize d section and content) In the event this informatio n is protected by the Federal Confidentiality of Alcohol and Drug Abuse Patient Records regulations: The Federal rules restrict any use of the information to criminally investigate or prosecute any alcohol or drug abuse patient.[facility] the event this information is protected by the Federal Confidentiality of Alcohol and Drug Abuse Patient Records regulations: The Federal rules restrict any use of the information to criminally investigate or prosecute any alcohol or drug abuse patient.[facility] the event this information is protected by the Federal Confidentiality of Alcohol and Drug Abuse Patient Records regulations: The Federal rules restrict any use of the information to criminally investigate or prosecute any alcohol or drug abuse patient.[facility] the event this information is protected by the Federal Confidentiality of Alcohol and Drug Abuse Patient Records regulations: The Federal rules restrict any use of the information to criminally investigate or prosecute any alcohol or drug abuse patient.[facility] the event this information is protected by the Federal Confidentiality of Alcohol and Drug Abuse Patient Records regulations: The Federal rules restrict any use of the information to criminally investigate or prosecute any alcohol or drug abuse patient.[facility] Center[facility] the event this information is protected by the Federal Confidentiality of Alcohol and Drug Abuse Patient Records regulations: The Federal rules restrict any use of the information to criminally investigate or prosecute any alcohol or drug abuse patient.[facility] Center[facility] the event this information is protected by the Federal Confidentiality of Alcohol and Drug Abuse Patient Records regulations: The Federal rules restrict any use of the information to criminally investigate or prosecute any alcohol or drug abuse patient.[facility] Center[facility] the event this information is protected by the Federal Confidentiality of Alcohol and Drug Abuse Patient Records regulations: The Federal rules restrict any use of the information to criminally investigate or prosecute any alcohol or drug abuse patient.[facility] Center[facility] the event this information is protected by the Federal Confidentiality of Alcohol and Drug Abuse Patient Records regulations: The Federal rules restrict any use of the information to criminally investigate or prosecute any alcohol or drug abuse patient.[facility] Center[facility] the event this information is protected by the Federal Confidentiality of Alcohol and Drug Abuse Patient Records regulations: The Federal rules restrict any use of the information to criminally investigate or prosecute any alcohol or drug abuse patient.[facility] Center[facility] the event this information is protected by the Federal Confidentiality of Alcohol and Drug Abuse Patient Records regulations: The Federal rules restrict any use of the information to criminally investigate or prosecute any alcohol or drug abuse patient.[facility] CenterIn the event this information is protected by the Federal Confidentiality of Alcohol and Drug Abuse Patient Records regulations: The Federal rules restrict any use of the information to criminally investigate or prosecute any alcohol or drug abuse patient.[facility] CenterIn the event this information is protected by the Federal Confidentiality of Alcohol and Drug Abuse Patient Records regulations: The Federal rules restrict any use of the information to criminally investigate or prosecute any alcohol or drug abuse patient.[facility] CenterIn the event this information is protected by the Federal Confidentiality of Alcohol and Drug Abuse Patient Records regulations: The Federal rules restrict any use of the information to criminally investigate or prosecute any alcohol or drug abuse patient.[facility] Center[facility] the event this information is protected by the Federal Confidentiality of Alcohol and Drug Abuse Patient Records regulations: The Federal rules restrict any use of the information to criminally investigate or prosecute any alcohol or drug abuse patient.[facility] Reason for Visit (unrecogniz ed [...] Team Personnel Name: YSABEL LUTZ APRN - MOTORMAN/WOMAN Position: P4 Advanced Practice Nurse Med Service: Employed Provider Member Role: Primary Care Physician Address: Address: [address] [facility] [place] [address]- Care Team Related Persons Name: MANOJ NOLASCO INFORMATION SOURCE (unrecogn ized section and content) DATE CREATED AUTHOR AUTHOR'S CRISPIN BAIRES 02/28/2023 [facility] ([place]) FOR RECORDS PERTAINING TO [...] BE BASED ON THE PRIMARY CLINICAL RECORDS. [employer] provides no warranty or guarantee of the accuracy or completeness of information in this document.
[2023-03-02 05:44] LABS: Mucous, Urine 0 SEEN /hpf (<or=2+)
[2023-03-02 05:53] LABS: Color, Urine Yellow (Yellow); Glucose, Dipstick Normal (Normal); Ketone-Dipstick Negative (Negative); Leukocyte Esterase-Dipstick 25 /ul (Negative); Nitrite-Dipstick Negative (Negative); Occult Blood-Urine 10 /ul (Negative); Protein-Dipstick 15 mg/dl (Negative); Specific Gravity, Urine 1.025 (1.002-1.030); Urine Bilirubin Dipstick Negative (Negative); Urine Clarity Clear (Clear); Urine Urobilinogen Normal (Normal)
[2023-03-02 05:55] LABS: Anion Gap 5 (5-15); BUN 11 mg/dL (7-18); BUN/Creat Ratio 9.8 RATIO (10-20); Calcium,Total 9.4 mg/dL (8.5-10.1); Chloride 105 mmol/L (98-107); Creatinine, Serum 1.12 mg/dL (0.55-1.02); EST Glomerular Filtration Rate 54 mL/min (>60); Est Glom Filt Rate - Afr Amer 66 mL/min (>60); Estimated Creatinine Clearance 52.87 ml/min; Glucose 135 mg/dL (74-106); Potassium 5.1 mmol/L (3.5-5.1); Sodium Level 136 mmol/L (136-145)
[2023-03-02] MEDS: Acetaminophen 500 MG Tablet 1000 MG PO (06:15)
[2023-03-02] MEDS: Metoclopramide 10 MG Tablet PO (06:15)
[2023-03-02 06:19] LABS: Amphetamine Urine VISTA NEGATIVE (<1000 ng/mL); Barbiturate Urine VISTA NEGATIVE (< 200 ng/mL); Benzodiazepine Urine VISTA NEGATIVE (< 200 ng/mL); Cocaine Urine VISTA NEGATIVE (< 300 ng/mL); Ecstacy Urine VISTA NEGATIVE (< 500 ng/mL); Methadone Urine VISTA NEGATIVE (< 300 ng/mL); PCP Urine VISTA NEGATIVE (< 25 ng/mL); THC Urine VISTA NEGATIVE (< 50 ng/mL); Vista UDS pH Range 5
[2023-03-02 06:40] LABS: Bacteria 1+ /hpf (None Seen); Red Blood Cells-Urine 0-5 SEEN /hpf (0-5); Squamous Epithelial Cells - UA 5-10 SEEN /hpf (5-10); White Blood Cells 0-5 SEEN /hpf (0-5)
[2023-03-02 07:07] VITALS: BP 134/78; PULSE 64; RESP 14; TEMP 36.4; O2SAT 97; O2SAT 99
--- NOTE | 2023-03-02 07:19 | ED.VIS.FALL ---
HPI HPI - Fall History of Present Illness Chief Complaint: Fall Informant: patient Occured/Mechanism Occurred: Today Narrative Narrative: Patient presents via EMS after a fall. She states she got up out of bed to go the bathroom and must of fallen. She members crawling on the floor to her life alert button. She has a recently healed laceration to her left scalp that she states she does have sutures removed from. She thinks she had this area and it is now more painful. Of note, patient was in the emergency room earlier in the evening after falling while getting into the bathtub. She had x-rays of her arm and leg that were unremarkable. Patient does report that she is been falling more frequently but does not know why. [facility] Medical History Abnormal glucose Anemia Anxiety Arthritis Asthma BiPAP (biphasic positive airway pressure) dependence Cardiac murmur Cardiology follow-up encounter Celiac disease Chest pain Chronic kidney disease COPD (chronic obstructive pulmonary disease) Depression Diabetes mellitus Dietary restriction Difficulty swallowing Dyspnea on exertion Fall GERD (gastroesophageal reflux disease) Gout History of chronic back pain History of echocardiogram History of edema History of pain when walking History of stress test Hydronephrosis Hyperlipidemia Hypersomnia Hypertension Hypothyroidism Injury of head and neck Iron deficiency anemia Leg cramps Microcytic anemia Migraine headache Morbid obesity with BMI of 40.0-44.9, adult Non-smoker Noncompliance DAVY treated with BiPAP Post-menopausal Pulmonary embolism Restless leg syndrome Scalp hematoma Shortness of breath on exertion Syncope Thyroid disease UTI (urinary tract infection) Vitamin B12 deficiency Vitamin D deficiency Wears glasses Home Medications citalopram 40 mg tablet 40 mg PO DAILY DEPRESSION/ANXIETY 07/27/19 [History Last Taken 02/10/23] budesonide-formoterol HFA 160 mcg-4.5 mcg/actuation aerosol inhaler (Symbicort) 2 puff inhalation BID COPD 04/02/20 [History Last Taken 02/10/23] rimegepant 75 mg disintegrating tablet (Nurtec ODT) 75 mg PO ONCE PRN MIGRAINES 06/19/20 [History Last Taken 05/04/22] fluticasone fur. 100 mcg-umeclid 62.5 mcg-vilant 25 mcg inhalat.powder (Trelegy Ellipta) 1 ea inhalation DAILY COPD 08/14/20 [History Last Taken 02/10/23] galcanezumab-gnlm 120 mg/mL subcutaneous pen injector (Emgality Pen) 120 mg subcut QMONTH MIGRAINES 08/19/21 [History Last Taken 01/06/23] lorazepam 1 mg tablet 1 mg PO BID PRN ANXIETY 05/04/22 [History Last Taken 02/08/23] progesterone micronized 200 mg capsule 400 mg PO QHS HORMONES 10/11/22 [History Last Taken 02/09/23] tramadol 50 mg tablet 50 mg PO TID PAIN 10/11/22 [History Last Taken 02/10/23] amlodipine 10 mg tablet 10 mg PO DAILY BLOOD PRESSURE #90 tabs 10/28/22 [Rx Last Taken 02/10/23] valsartan 320 mg tablet 160 mg (1/2 x 320 mg) PO BID BLOOD PRESSURE #90 tabs 10/28/22 [Rx Last Taken 02/10/23] albuterol sulfate 90 mcg/actuation breath activated powder inhaler (ProAir RespiClick) 2 inh inhalation 4X/DAY PRN SHORTNESS OF BREATH #1 ea 11/07/22 [Rx Last Taken Unknown] metoclopramide HCl 10 mg tablet (Reglan) 10 mg PO Q6H PRN NAUSEA AND VOMTING #20 tabs 01/07/23 [Rx Last Taken Unknown] atorvastatin 80 mg tablet 80 mg PO DAILY CHOLESTEROL 02/10/23 [History Last Taken 02/10/23] cyclobenzaprine 5 mg tablet 5 mg PO Q8H PRN MUSCLE SPASMS 02/10/23 [History Last Taken 02/08/23] levothyroxine 175 mcg tablet 175 mcg PO DAILY THYROID 02/10/23 [History Last Taken 02/10/23] magnesium oxide 400 mg (241.3 mg magnesium) tablet 400 mg PO DAILY SUPPLEMENT 02/10/23 [History Last Taken 02/09/23] potassium chloride 10 mEq capsule,extended release 10 meq PO DAILY SUPPLEMENT 02/10/23 [History Last Taken 02/10/23] promethazine 25 mg rectal suppository (Promethegan) 25 mg [place] Q6H PRN PRN Nausea #12 ea 02/24/23 [Rx Last Taken Unknown] cephalexin 500 mg capsule 500 mg PO BID 03/01/23 [History Last Taken Unknown] gabapentin 100 mg capsule 400 mg PO QHS LEG CRAMPS 03/01/23 [History Last Taken Unknown] Allergy/AdvReac Type Severity Reaction Status Date / Time hydrochlorothiazide AdvReac Intermediate Contributes Verified 03/01/23 09:11 to gout naproxen [From Naprosyn] AdvReac Intermediate Nausea Verified 03/01/23 09:11 aspirin AdvReac Nausea Verified 03/01/23 09:11 Family History Father , Age 72 Hypertension Mother CAD (coronary artery disease) Myocardial infarction, Onset Age: 55 Hypertension Sister CAD (coronary artery disease) Brother Cancer Surgical History History of History of cardiac catheterization History of carpal tunnel surgery of left wrist History of carpal tunnel surgery of right wrist History of left heart catheterization (11/11/20) history of uterine ablation Hx of cystoscopy Social History household members: none housing: apartment Smoking Status: Never smoker alcohol intake: never substance use type: does not use caffeine: No ROS ROS ED Constitutional Constitutional ED: Denies chills or fever(s) Eyes Eyes: Denies discharge from eye(s) ENT ENT ED: Denies discharge from eye(s), rhinorrhea or sore throat Cardiovascular Cardiovascular: Denies chest pain or palpitations Respiratory/Chest Respiratory/Chest: Denies cough or dyspnea Gastrointestinal Gastrointestinal: Denies abdominal pain, nausea or vomiting Genitourinary Genitourinary ED: Denies dysuria Musculoskeletal Musculoskeletal: Denies back pain Integumentary Denies Abrasions or rash Neurologic Neurologic: Reports headache(s); Denies weakness Psychiatric Psychiatric: Denies anxiety or depression Allergic/Immunologic Allergic/Immunologic ED: Denies lip swelling or urticaria EXAM Physical Exam Const Vital Signs: 03/02/23 04:36 03/02/23 04:41 03/02/23 07:07 Temperature 97.1 F L Temperature Source Temporal Pulse Rate 93 64 Respiratory Rate 16 14 Respiratory Effort Normal Respiratory Depth Normal Respiratory Pattern Normal Blood Pressure 135/91 H 134/78 H Blood Pressure Mean 105 96 Pulse Ox 97 97 Oxygen Delivery Method Room Air 03/02/23 07:07 Temperature 97.6 F L Temperature Source Pulse Rate 64 Respiratory Rate 14 Respiratory Effort Respiratory Depth Respiratory Pattern Blood Pressure 134/78 H Blood Pressure Mean 96 Pulse Ox 99 Oxygen Delivery Method Positive well nourished and well developed General Appearance ED: well developed HEENT Reports normocephalic HEENT Narrative: Recently had laceration to the left parietal scalp. No hematoma or bleeding. Eyes EOMs intact bilaterally Neck full ROM Chest Wall inspection of chest normal and palpation of chest normal Resp normal respiratory effort and clear to auscultation bilaterally Cardio regular rate and regular rhythm GI non-tender Neuro oriented x3 and moves all extremities Neuro Narrative: No focal neurologic deficit. MDM MDM MDM Narrative Medical decision making narrative: Given the patient's reported weakness and increased frequency of falls, IV line is established. Labwork obtained to evaluate for leukocytosis, anemia, and electrolyte derangement. EKG obtained to evaluate for cardiac arrhythmia/ischemia. CT scan of the head obtained to evaluate for fracture, edema, bleed. History & Record Review Discussion w/independent historian: Patient Additional record(s) reviewed:: Prior ED visit Lab Data Attestation: I reviewed the patient's lab results. Labs: Laboratory Results - last 24 hr 03/02/23 03/02/23 03/02/23 05:03 05:27 05:40 WBC 12.5 H RBC 3.54 L Hgb 11.3 L Hct 36.3 L MCV 102.5 H MCH 31.9 MCHC 31.1 L RDW Std Deviation 57.1 H RDW Coeff of Alfredo 14.9 H Plt Count 433 MPV 9.2 Immature Gran % (Auto) 0.900 Neut % (Auto) 68.5 Lymph % (Auto) 15.9 L [place]ades % (Auto) 8.5 Eos % (Auto) 5.4 H Baso % (Auto) 0.8 Absolute Neuts (auto) 8.6 H Absolute Lymphs (auto) 1.99 Nucleated RBC % 0 Sodium Cancelled 136 Potassium Cancelled 5.1 Chloride Cancelled 105 Carbon Dioxide Cancelled 26.0 Anion Gap Cancelled 5 BUN Cancelled 11 Creatinine Cancelled 1.12 H Estim Creat Clear Calc Cancelled 52.87 Est GFR (MDRD) Af Amer Cancelled 66 Est GFR (MDRD) Non-Af Cancelled 54 L BUN/Creatinine Ratio Cancelled 9.8 L Glucose Cancelled 135 H Calcium Cancelled 9.4 Urine Color Yellow Urine Clarity Clear Urine pH 5.0 Ur Specific [place] 1.025 Urine Protein 15 H Urine Glucose (UA) Normal Urine Ketones Negative Urine Occult Blood 10 H Urine Nitrite Negative Urine Bilirubin Negative Urine Urobilinogen Normal Ur Leukocyte Esterase 25 H Urine RBC 0-5 SEEN Urine WBC 0-5 SEEN Ur Squamous Epith Cells 5-10 SEEN Urine Bacteria 1+ Urine Mucus 0 SEEN Urine Opiates Screen NEGATIVE Urine Methadone Screen NEGATIVE Ur Barbiturates Screen NEGATIVE Ur Phencyclidine Scrn NEGATIVE Ur Amphetamines Screen NEGATIVE MDMA (Ecstasy) Screen NEGATIVE U Benzodiazepines Scrn NEGATIVE Urine Cocaine Screen NEGATIVE U Cannabinoids Screen NEGATIVE Ur Drug Screen Comment Radiography Diagnostic Testing: Clinical Impression(s) from Imaging Studies Brain CT 03/02/23 04:51 IMPRESSION: Chronic involutional and white matter changes. No evidence of acute intracranial abnormality. Electronically Signed: Manuel Schaefer MD at 5:55 EST , EKG Initial EKG: Attestation: I personally reviewed and interpreted this EKG as follows: Interpretation: Sinus Rhythm (Sinus at 91 with nonspecific T wave flattening.) Treatment and Re-Evaluation Narrative: CBC reveals white count of 12.5 with normal differential. On review of prior records she tends to run an elevated white count. Hemoglobin is 11.3. Chemistry studies significant only for creatinine 1.12. This again is near her baseline. Glucose is 135. Urinalysis reveals no overt sign of infection. She does have 1+ bacteria with 5-10 epithelial cells but 0-5 whites and no nitrites. Urine tox screen is negative. EKG is sinus with no acute ischemia. Patient has had no arrhythmias noted on monitor. CT scan of the head reveals chronic changes with no acute findings. Patient was given Tylenol and Reglan for pain and nausea and tolerated this without difficulty. She was observed ambulating to the restroom and back without difficulty. She will be discharged to home with return instructions. Discharge Plan Triage Chief Complaint: Fall ED Provider: Nannette Stahl Dx/Rx/DC Orders Clinical Impression: Contusion of scalp, Fall Instructions: ED Scalp Contusion, ED Head Injury (Adult) Prescriptions: No Action budesonide-formoterol [Symbicort] 160-4.5 mcg/actuation HFA aerosol inhaler 2 puff INHALATION BID Nurtec ODT 75 mg tablet,disintegrating 75 mg PO ONCE PRN (Reason: MIGRAINES ) Emgality Pen 120 mg/mL pen injector 120 mg subcut QMONTH Patient Comments: PT STATES THEY WERE DUE TO GET THIS A WEEK AGO BUT CANNOT AFFORD TO DO SO AT THIS TIME 9AS OF 02-10-23) Trelegy Ellipta 100-62.5-25 mcg blister with device 1 ea INHALATION DAILY lorazepam 1 mg tablet 1 mg PO BID PRN (Reason: ANXIETY ) tramadol 50 mg tablet 50 mg PO TID progesterone micronized 200 mg capsule 400 mg PO QHS ProAir RespiClick 90 mcg/actuation aerosol powdr breath activated 2 inh INHALATION 4X/DAY PRN (Reason: SHORTNESS OF BREATH ) Qty: 1 0RF cyclobenzaprine 5 mg tablet 5 mg PO Q8H PRN (Reason: MUSCLE SPASMS ) magnesium oxide 400 mg (241.3 mg magnesium) tablet 400 mg PO DAILY potassium chloride 10 mEq capsule, extended release 10 meq PO DAILY levothyroxine 175 mcg tablet 175 mcg PO DAILY atorvastatin 80 mg Tablet 80 mg PO DAILY gabapentin 100 mg capsule 400 mg PO QHS cephalexin 500 mg capsule 500 mg PO BID Patient Comments: TAKE 1 CAPSULE BY MOUTH TWICE DAILY metoclopramide HCl [Reglan] 10 mg tablet 10 mg PO Q6H PRN (Reason: NAUSEA AND VOMTING ) Qty: 20 0RF promethazine [Promethegan] 25 mg suppository 25 mg [place] Q6H PRN PRN (Reason: Nausea) Qty: 12 0RF citalopram 40 mg tablet 40 mg PO DAILY amlodipine 10 mg tablet 10 mg PO DAILY Qty: 90 3RF valsartan 320 mg tablet 160 mg PO BID Qty: 90 3RF Primary Care Provider: Halina Johnson Referrals: Halina Johnson, [Primary Care Provider] - 1-2 Weeks Disposition Disposition: Home, Self Care Discharge Date/Time: 03/02/23 07:47
== END 2023-03-02 07:47 | disposition home or self-care (01) ==
PROVIDERS: Emergency Provider Emergency Medicine; PCP Family Medicine; Visit Provider Emergency Medicine
DX: S00.03XA Contusion of scalp, initial encounter (principal); J44.9 Chronic obstructive pulmonary disease, unspecified; E66.01 Morbid (severe) obesity due to excess calories; Z68.42 Body mass index [BMI] 45.0-49.9, adult; W18.39XA Other fall on same level, initial encounter; Y93.89 Activity, other specified; Y99.8 Other external cause status; Y92.009 Unspecified place in unspecified non-institutional (private) residence as the place of occurrence of the external cause; I10 Essential (primary) hypertension; R29.6 Repeated falls; Z79.899 Other long term (current) drug therapy
CPT/HCPCS: 70450; 80048; 80307; 81001; 85025; 93005; 99284; A4216

== ENCOUNTER 2023-03-04 09:51 | Emergency (ER) | payer MEDICARE, MEDICAID, SELFPAY ==
[2023-03-04 09:52] VITALS: BP 183/109; PULSE 99; RESP 18; TEMP 36.8; O2SAT 99; BMI 50.2
--- NOTE | 2023-03-04 10:11 | EDS_ITS ---
HPI History of Present Illness Chief Complaint: Wound Informant: patient Onset/Context/Timing Onset: Days Context: Gradual Onset Timing: Continuous Current Severity: Mild Maximum Severity: Mild Narrative Narrative: 52-year-old well-known to this emergency department history of COPD on BiPAP, anemia and chronic kidney disease. Has had multiple recent falls. Multiple CAT scans and imaging. Presents with a wound on her right lower leg with some surrounding redness and discomfort. Denies fever or chills. Prior similar symptoms: No Recent Illness/Hospitalization: No PFSH PFSH Medical History Abnormal glucose Anemia Anxiety Arthritis Asthma BiPAP (biphasic positive airway pressure) dependence Cardiac murmur Cardiology follow-up encounter Celiac disease Chest pain Chronic kidney disease COPD (chronic obstructive pulmonary disease) Depression Diabetes mellitus Dietary restriction Difficulty swallowing Dyspnea on exertion Fall GERD (gastroesophageal reflux disease) Gout History of chronic back pain History of echocardiogram History of edema History of pain when walking History of stress test Hydronephrosis Hyperlipidemia Hypersomnia Hypertension Hypothyroidism Injury of head and neck Iron deficiency anemia Leg cramps Microcytic anemia Migraine headache Morbid obesity with BMI of 40.0-44.9, adult Non-smoker Noncompliance DAVY treated with BiPAP Post-menopausal Pulmonary embolism Restless leg syndrome Scalp hematoma Shortness of breath on exertion Syncope Thyroid disease UTI (urinary tract infection) Vitamin B12 deficiency Vitamin D deficiency Wears glasses Home Medications citalopram 40 mg tablet 40 mg PO DAILY DEPRESSION/ANXIETY 07/27/19 [History Last Taken 02/10/23] budesonide-formoterol HFA 160 mcg-4.5 mcg/actuation aerosol inhaler (Symbicort) 2 puff inhalation BID COPD 04/02/20 [History Last Taken 02/10/23] rimegepant 75 mg disintegrating tablet (Nurtec ODT) 75 mg PO ONCE PRN MIGRAINES 06/19/20 [History Last Taken 05/04/22] fluticasone fur. 100 mcg-umeclid 62.5 mcg-vilant 25 mcg inhalat.powder (Trelegy Ellipta) 1 ea inhalation DAILY COPD 08/14/20 [History Last Taken 02/10/23] galcanezumab-gnlm 120 mg/mL subcutaneous pen injector (Emgality Pen) 120 mg subcut QMONTH MIGRAINES 08/19/21 [History Last Taken 01/06/23] lorazepam 1 mg tablet 1 mg PO BID PRN ANXIETY 05/04/22 [History Last Taken 02/08/23] progesterone micronized 200 mg capsule 400 mg PO QHS HORMONES 10/11/22 [History Last Taken 02/09/23] tramadol 50 mg tablet 50 mg PO TID PAIN 10/11/22 [History Last Taken 02/10/23] amlodipine 10 mg tablet 10 mg PO DAILY BLOOD PRESSURE #90 tabs 10/28/22 [Rx Last Taken 02/10/23] valsartan 320 mg tablet 160 mg (1/2 x 320 mg) PO BID BLOOD PRESSURE #90 tabs 10/28/22 [Rx Last Taken 02/10/23] albuterol sulfate 90 mcg/actuation breath activated powder inhaler (ProAir RespiClick) 2 inh inhalation 4X/DAY PRN SHORTNESS OF BREATH #1 ea 11/07/22 [Rx Last Taken Unknown] metoclopramide HCl 10 mg tablet (Reglan) 10 mg PO Q6H PRN NAUSEA AND VOMTING #20 tabs 01/07/23 [Rx Last Taken Unknown] atorvastatin 80 mg tablet 80 mg PO DAILY CHOLESTEROL 02/10/23 [History Last Taken 02/10/23] cyclobenzaprine 5 mg tablet 5 mg PO Q8H PRN MUSCLE SPASMS 02/10/23 [History Last Taken 02/08/23] levothyroxine 175 mcg tablet 175 mcg PO DAILY THYROID 02/10/23 [History Last Taken 02/10/23] magnesium oxide 400 mg (241.3 mg magnesium) tablet 400 mg PO DAILY SUPPLEMENT 02/10/23 [History Last Taken 02/09/23] potassium chloride 10 mEq capsule,extended release 10 meq PO DAILY SUPPLEMENT 02/10/23 [History Last Taken 02/10/23] promethazine 25 mg rectal suppository (Promethegan) 25 mg [place] Q6H PRN PRN Nausea #12 ea 02/24/23 [Rx Last Taken Unknown] cephalexin 500 mg capsule 500 mg PO BID 03/01/23 [History Last Taken Unknown] gabapentin 100 mg capsule 400 mg PO QHS LEG CRAMPS 03/01/23 [History Last Taken Unknown] cephalexin 500 mg capsule 500 mg PO Q6 7 days #28 CAPSULES 03/04/23 [Rx Last Taken Unknown] Allergy/AdvReac Type Severity Reaction Status Date / Time hydrochlorothiazide AdvReac Intermediate Contributes Verified 03/04/23 09:52 to gout naproxen [From Naprosyn] AdvReac Intermediate Nausea Verified 03/04/23 09:52 aspirin AdvReac Nausea Verified 03/04/23 09:52 Family History Father , Age 72 Hypertension Mother CAD (coronary artery disease) Myocardial infarction, Onset Age: 55 Hypertension Sister CAD (coronary artery disease) Brother Cancer Surgical History History of History of cardiac catheterization History of carpal tunnel surgery of left wrist History of carpal tunnel surgery of right wrist History of left heart catheterization (11/11/20) history of uterine ablation Hx of cystoscopy Social History household members: none housing: apartment Smoking Status: Never smoker alcohol intake: never substance use type: does not use caffeine: No ROS ROS ED ROS Narrative Denies. Review of Systems ROS Unobtainable: Denies due to encephalopathy Constitutional Constitutional ED: Denies chills or fever(s) Eyes Eyes: Denies blurry vision ENT ENT ED: Denies ear pain Cardiovascular Cardiovascular: Denies chest pain Respiratory/Chest Respiratory/Chest: Denies cough or dyspnea Gastrointestinal Gastrointestinal: Denies abdominal pain Genitourinary Genitourinary ED: Denies dysuria or hematuria Musculoskeletal Musculoskeletal: Denies arthralgias Integumentary Denies abscess Neurologic Neurologic: Denies headache(s) Psychiatric Psychiatric: Denies anxiety or depression Endocrine Endocrinology: Denies cold intolerance Hematologic/Lymphatic Hematologic/Lymphatic: Reports none Allergic/Immunologic Allergic/Immunologic ED: Denies mouth swelling, tongue swelling or urticaria EXAM Physical Exam Narrative Exam Narrative: Well-appearing 52-year-old female. Vital signs stable afebrile. H EENT exam unremarkable. No trauma to her face or scalp. Neck nontender. Lungs clear to auscultation bilaterally. Heart regular rhythm rate about 95 no murmur. Chest wall and ribs nontender. Abdomen soft nondistended normal bowel sounds no peritoneal signs. Morbidly obese. Pelvic girdle intact. Moving all 4 extremities. Normal motor strength. Right lower leg medially has about a quarter sized wound. There is a scab. She does have some mild surrounding redness consistent with early cellulitis. Is not warm to the touch and is tender. No bony deformity. Normal range of motion of both lower extremities. Normal dorsi plantarflexion. No lymphangitic streaking. No inguinal lymphadenopathy. No pus or discharge. Patient is awake and alert. Answering questions following commands. Const Vital Signs: 03/04/23 09:52 Temperature 98.2 F Temperature Source Temporal Pulse Rate 99 Respiratory Rate 18 Blood Pressure 183/109 H Blood Pressure Mean 133 Pulse Ox 99 Oxygen Delivery Method Room Air Positive well nourished, well developed and obese; Negative for cachectic, contractures or unkempt General Appearance ED: well developed and NAD; Negative for unkempt, cachectic, contractures, cyanotic, diaphoretic or pallor Nutritional Appearance: obese; Negative for cachectic HEENT Reports moist mucous membranes; Denies dry mucous membranes Negative for trauma or tenderness Mouth ED: No dry mucous membranes Mouth: No dry mucous membranes Eyes PERRL and EOMs intact bilaterally General Eye ED: Negative for pale conjunctiva, scleral icterus or other Neck no lymphadenopathy, supple and no JVD General: Negative for tenderness Lymph Lymphatic: Negative for other Chest Wall inspection of chest normal and palpation of chest normal Chest: Negative for other Resp normal respiratory effort and clear to auscultation bilaterally Effort and Inspection: Negative for retractions Auscultation: Negative for rales, rhonchi or wheezes Cardio regular rate, regular rhythm, S1 normal heart sound, S2 normal heart sound and no murmurs Palpation: Negative for palpable S3 or palpable S4 Rate: Negative for bradycardia or tachycardic Rhythm: Negative for abnormal rhythm GI normal to inspection, nondistended, normoactive bowel sounds, non-tender, non- distended and no masses Inspection: Negative for abdominal distention Auscultation: normoactive bowel sounds Palpation: soft; Negative for tender or guarding Bladder / Kidney Exam: No other Back/Spine no CVA tenderness General Back: Negative for CVA tenderness Cervical Spine: Negative for cervical spine tenderness Thoracic Spine / Upper Back: Negative for thoracic spinal tenderness or paraspinal muscle tenderness Lumbar Spine / Lower Back: Negative for lumbar spinal tenderness Extremity normal to inspection General Extremety ED: Negative for edema, tenderness or other findings General Extremity: Negative for edema or other findings Neuro oriented x3 and CN's II-XII intact bilaterally Sensorium / Orientation: alert; Negative for orientation impaired, lethargic or stuporous Motor Exam: strength 5/5 throughout Psych mental status grossly normal Appearance: Negative for unkempt Attitude: No agitated Mood & Affect: Negative for depressed, anxious or tearful Skin no rashes or lesions noted, no wounds and skin turgor normal Skin Narrative: Wound right lower leg. Quarter size. Mild surrounding cellulitis. Tender to touch. No bony deformity. No pus. No lymphangitic streaking. No inguinal lymphadenopathy. Consistent with an early cellulitis. General Skin Exam: elasticity normal; Negative for jaundice or pallor Lesions: No lesion noted Rashes: rashes noted MDM MDM MDM Narrative Medical decision making narrative: 52-year-old female wound right lower leg with early cellulitis. Patient be started on Keflex here. No labs needed. She has had recent extensive workups and extensive imaging. Keflex 4 times a day for a week and follow-up if not improving. History & Record Review Discussion w/independent historian: Patient Additional record(s) reviewed:: Prior inpatient record, Prior outpatient record, Prior ED visit and Prior labs Discharge Plan Triage Chief Complaint: Wound ED Provider: Pipo Merritt Dx/Rx/DC Orders Clinical Impression: History of COPD, History of chronic kidney disease, Cellulitis Instructions: ED Cellulitis Prescriptions: New cephalexin 500 mg capsule 500 mg PO Q6 7 Days Qty: 28 0RF No Action budesonide-formoterol [Symbicort] 160-4.5 mcg/actuation HFA aerosol inhaler 2 puff INHALATION BID Nurtec ODT 75 mg tablet,disintegrating 75 mg PO ONCE PRN (Reason: MIGRAINES ) Emgality Pen 120 mg/mL pen injector 120 mg subcut QMONTH Patient Comments: PT STATES THEY WERE DUE TO GET THIS A WEEK AGO BUT CANNOT AFFORD TO DO SO AT THIS TIME 9AS OF 02-10-23) Trelegy Ellipta 100-62.5-25 mcg blister with device 1 ea INHALATION DAILY lorazepam 1 mg tablet 1 mg PO BID PRN (Reason: ANXIETY ) tramadol 50 mg tablet 50 mg PO TID progesterone micronized 200 mg capsule 400 mg PO QHS ProAir RespiClick 90 mcg/actuation aerosol powdr breath activated 2 inh INHALATION 4X/DAY PRN (Reason: SHORTNESS OF BREATH ) Qty: 1 0RF cyclobenzaprine 5 mg tablet 5 mg PO Q8H PRN (Reason: MUSCLE SPASMS ) magnesium oxide 400 mg (241.3 mg magnesium) tablet 400 mg PO DAILY potassium chloride 10 mEq capsule, extended release 10 meq PO DAILY levothyroxine 175 mcg tablet 175 mcg PO DAILY atorvastatin 80 mg Tablet 80 mg PO DAILY gabapentin 100 mg capsule 400 mg PO QHS cephalexin 500 mg capsule 500 mg PO BID Patient Comments: TAKE 1 CAPSULE BY MOUTH TWICE DAILY metoclopramide HCl [Reglan] 10 mg tablet 10 mg PO Q6H PRN (Reason: NAUSEA AND VOMTING ) Qty: 20 0RF promethazine [Promethegan] 25 mg suppository 25 mg [place] Q6H PRN PRN (Reason: Nausea) Qty: 12 0RF citalopram 40 mg tablet 40 mg PO DAILY amlodipine 10 mg tablet 10 mg PO DAILY Qty: 90 3RF valsartan 320 mg tablet 160 mg PO BID Qty: 90 3RF Primary Care Provider: Halina Johnson Referrals: Halina Johnson, DO [Primary Care Provider] - 1 Week if not improving Activity Restrictions/Additional Instructions: You have a soft tissue infection on your right lower leg called cellulitis. Keflex 1 pill 4 times a day till gone. Follow-up with your doctor if not improving or getting worse. Disposition Disposition: Home, Self Care
[2023-03-04] MEDS: Cephalexin 250 MG Capsule 500 MG PO (10:13)
== END 2023-03-04 10:16 | disposition home or self-care (01) ==
PROVIDERS: Emergency Provider Emergency Medicine; PCP Family Medicine; Visit Provider Emergency Medicine
DX: L03.115 Cellulitis of right lower limb (principal); J44.9 Chronic obstructive pulmonary disease, unspecified; E11.22 Type 2 diabetes mellitus with diabetic chronic kidney disease; E66.01 Morbid (severe) obesity due to excess calories; Z68.43 Body mass index [BMI] 50.0-59.9, adult; I12.9 Hypertensive chronic kidney disease with stage 1 through stage 4 chronic kidney disease, or unspecified chronic kidney disease; N18.9 Chronic kidney disease, unspecified; R29.6 Repeated falls; Z79.899 Other long term (current) drug therapy
CPT/HCPCS: 99282

== ENCOUNTER 2023-03-08 14:52 | Emergency (ER) | payer MEDICARE, MEDICAID, SELFPAY ==
[2023-03-08 14:53] VITALS: BP 185/89; PULSE 86; RESP 15; TEMP 36.4; O2SAT 98; BMI 50.1
--- NOTE | 2023-03-08 16:17 | EDS_ITS ---
HPI <ROBLES Sheets - Last Filed: 03/08/23 18:52> History of Present Illness Chief Complaint: Wound Narrative Narrative: Patient presenting today due to a wound to her right lower leg. She reports that she has had this wound for around 2 weeks after a fall that occurred. She reports that she had to have stitches in her scalp during that time as well. She reports that around 2 weeks ago she was put on Keflex 4 times daily x 7 days. She reports that she recently was here in the emergency department for this wound and was given an additional prescription for Keflex 4 times daily x 7 days. She reports that she has finished this prescription. She reports that the area looks worse and is more red and painful. She denies any fevers or chills. Reports that she had 1 episode of vomiting last night. She reports a PMH of COPD, age for CKD, hypertension, hyperlipidemia, and hypothyroidism. PFSH <ROBLES Sheets - Last Filed: 03/08/23 18:52> PFSH Medical History Abnormal glucose Anemia Anxiety Arthritis Asthma BiPAP (biphasic positive airway pressure) dependence Cardiac murmur Cardiology follow-up encounter Celiac disease Chest pain Chronic kidney disease COPD (chronic obstructive pulmonary disease) Depression Diabetes mellitus Dietary restriction Difficulty swallowing Dyspnea on exertion Fall GERD (gastroesophageal reflux disease) Gout History of chronic back pain History of echocardiogram History of edema History of pain when walking History of stress test Hydronephrosis Hyperlipidemia Hypersomnia Hypertension Hypothyroidism Injury of head and neck Iron deficiency anemia Leg cramps Microcytic anemia Migraine headache Morbid obesity with BMI of 40.0-44.9, adult Non-smoker Noncompliance DAVY treated with BiPAP Post-menopausal Pulmonary embolism Restless leg syndrome Scalp hematoma Shortness of breath on exertion Syncope Thyroid disease UTI (urinary tract infection) Vitamin B12 deficiency Vitamin D deficiency Wears glasses Home Medications citalopram 40 mg tablet 40 mg PO DAILY DEPRESSION/ANXIETY 07/27/19 [History Last Taken 02/10/23] budesonide-formoterol HFA 160 mcg-4.5 mcg/actuation aerosol inhaler (Symbicort) 2 puff inhalation BID COPD 04/02/20 [History Last Taken 02/10/23] rimegepant 75 mg disintegrating tablet (Nurtec ODT) 75 mg PO ONCE PRN MIGRAINES 06/19/20 [History Last Taken 05/04/22] fluticasone fur. 100 mcg-umeclid 62.5 mcg-vilant 25 mcg inhalat.powder (Trelegy Ellipta) 1 ea inhalation DAILY COPD 08/14/20 [History Last Taken 02/10/23] galcanezumab-gnlm 120 mg/mL subcutaneous pen injector (Emgality Pen) 120 mg subcut QMONTH MIGRAINES 08/19/21 [History Last Taken 01/06/23] lorazepam 1 mg tablet 1 mg PO BID PRN ANXIETY 05/04/22 [History Last Taken 02/08/23] progesterone micronized 200 mg capsule 400 mg PO QHS HORMONES 10/11/22 [History Last Taken 02/09/23] tramadol 50 mg tablet 50 mg PO TID PAIN 10/11/22 [History Last Taken 02/10/23] amlodipine 10 mg tablet 10 mg PO DAILY BLOOD PRESSURE #90 tabs 10/28/22 [Rx Last Taken 02/10/23] valsartan 320 mg tablet 160 mg (1/2 x 320 mg) PO BID BLOOD PRESSURE #90 tabs 10/28/22 [Rx Last Taken 02/10/23] albuterol sulfate 90 mcg/actuation breath activated powder inhaler (ProAir RespiClick) 2 inh inhalation 4X/DAY PRN SHORTNESS OF BREATH #1 ea 11/07/22 [Rx Last Taken Unknown] metoclopramide HCl 10 mg tablet (Reglan) 10 mg PO Q6H PRN NAUSEA AND VOMTING #20 tabs 01/07/23 [Rx Last Taken Unknown] atorvastatin 80 mg tablet 80 mg PO DAILY CHOLESTEROL 02/10/23 [History Last Taken 02/10/23] cyclobenzaprine 5 mg tablet 5 mg PO Q8H PRN MUSCLE SPASMS 02/10/23 [History Last Taken 02/08/23] levothyroxine 175 mcg tablet 175 mcg PO DAILY THYROID 02/10/23 [History Last Taken 02/10/23] magnesium oxide 400 mg (241.3 mg magnesium) tablet 400 mg PO DAILY SUPPLEMENT 02/10/23 [History Last Taken 02/09/23] potassium chloride 10 mEq capsule,extended release 10 meq PO DAILY SUPPLEMENT 02/10/23 [History Last Taken 02/10/23] promethazine 25 mg rectal suppository (Promethegan) 25 mg KS Q6H PRN PRN Nausea #12 ea 02/24/23 [Rx Last Taken Unknown] cephalexin 500 mg capsule 500 mg PO BID 03/01/23 [History Last Taken Unknown] gabapentin 100 mg capsule 400 mg PO QHS LEG CRAMPS 03/01/23 [History Last Taken Unknown] cephalexin 500 mg capsule 500 mg PO Q6 7 days #28 CAPSULES 03/04/23 [Rx Last Taken Unknown] clindamycin HCl 300 mg capsule (Cleocin HCl) 300 mg PO Q6H 7 days #28 CAPSULES 03/08/23 [Rx Last Taken Unknown] Allergy/AdvReac Type Severity Reaction Status Date / Time hydrochlorothiazide AdvReac Intermediate Contributes Verified 03/04/23 09:52 to gout naproxen [From Naprosyn] AdvReac Intermediate Nausea Verified 03/04/23 09:52 aspirin AdvReac Nausea Verified 03/04/23 09:52 Family History Father , Age 72 Hypertension Mother CAD (coronary artery disease) Myocardial infarction, Onset Age: 55 Hypertension Sister CAD (coronary artery disease) Brother Cancer Surgical History History of History of cardiac catheterization History of carpal tunnel surgery of left wrist History of carpal tunnel surgery of right wrist History of left heart catheterization (11/11/20) history of uterine ablation Hx of cystoscopy Social History household members: none housing: apartment Smoking Status: Never smoker alcohol intake: never substance use type: does not use caffeine: No ROS <ROBLES Sheets - Last Filed: 03/08/23 18:52> ROS ED Constitutional Constitutional ED: Denies chills or fever(s) Cardiovascular Cardiovascular: Denies chest pain Respiratory/Chest Respiratory/Chest: Denies cough or dyspnea Gastrointestinal Gastrointestinal: Denies abdominal pain, nausea or vomiting Musculoskeletal Musculoskeletal: Reports other Details: R lower leg pain Integumentary Reports wounds Neurologic Neurologic: Denies paresthesias or weakness EXAM <ROBLES Sheets - Last Filed: 03/08/23 18:52> Physical Exam Const Vital Signs: 03/08/23 14:53 03/08/23 18:16 Temperature 97.6 F L Temperature Source Temporal Pulse Rate 86 89 Respiratory Rate 15 12 Blood Pressure 185/89 H 150/97 H Blood Pressure Mean 121 114 Pulse Ox 98 98 Oxygen Delivery Method Room Air Positive well nourished, well developed and no apparent distress General Appearance ED: well developed HEENT Reports normocephalic and head/scalp atraumatic Mouth ED: Yes moist mucous membranes normal Eyes PERRL and EOMs intact bilaterally Neck full ROM and supple Chest Wall inspection of chest normal Resp normal respiratory effort and clear to auscultation bilaterally Cardio regular rate and regular rhythm GI soft to palpation, non-tender, non-distended and no masses Back/Spine normal ROM and normal to inspection Extremity full ROM Extremity Narrative: Quarter sized ulcerative wound with purulent discharge to the right anterior lower leg. Minimal surrounding erythema and edema. No lymphangitic streaking. Neuro oriented x3, CN's II-XII intact bilaterally, moves all extremities, no focal motor deficits and no sensory deficits noted Sensorium / Orientation: awake and alert Psych mental status grossly normal and thought process normal <Dr. Anam Cuevas DO - Last Filed: 03/09/23 00:20> Physical Exam Const Vital Signs: 03/08/23 14:53 03/08/23 18:16 Temperature 97.6 F L Temperature Source Temporal Pulse Rate 86 89 Respiratory Rate 15 12 Blood Pressure 185/89 H 150/97 H Blood Pressure Mean 121 114 Pulse Ox 98 98 Oxygen Delivery Method Room Air MDM <ROBLES Sheets - Last Filed: 03/08/23 18:52> [facility] Narrative Medical decision making narrative: Patient presenting due to a wound to her right lower extremity that she has had now for about 2 weeks. She is nontoxic-appearing and in no acute distress, she is afebrile and vitals are unremarkable aside from her hypertension. She told me that she has had 2 prescriptions for Keflex but told the attending that she has had 3, all for Keflex. She has very minimal erythema surrounding the wound, no abscess formation or lymphangitic streaking. Labs obtained, WBC is near baseline for patient. Creatinine consistent with her CKD. Chronic anemia. I think would be beneficial to switch antibiotic therapy, we will start her on clindamycin with first dose here. I have encouraged her to follow-up with her PCP for further wound care. She has been given return instructions and will be discharged home in stable condition. She is comfortable with plan. Lab Data Attestation: I reviewed the patient's lab results. Lab results narrative: WBC 12, H&H 11.3 and 36, Creatinine 1.22, GFR 49 Labs: Laboratory Results - last 24 hr 03/08/23 16:40 WBC 12.0 H RBC 3.51 L Hgb 11.3 L Hct 36.0 L MCV 102.6 H MCH 32.2 H MCHC 31.4 L RDW Std Deviation 55.9 H RDW Coeff of Alfredo 14.8 H Plt Count 436 MPV 9.3 Immature Gran % (Auto) 1.100 H Neut % (Auto) 68.5 Lymph % (Auto) 17.1 L [place] % (Auto) 7.3 Eos % (Auto) 5.2 H Baso % (Auto) 0.8 Absolute Neuts (auto) 8.2 H Absolute Lymphs (auto) 2.05 Nucleated RBC % 0 Sodium 139 Potassium 3.6 Chloride 107 Carbon Dioxide 28.0 Anion Gap 4 L BUN 8 Creatinine 1.22 H Estim Creat Clear Calc 73.06 Est GFR (MDRD) Af Amer 59 L Est GFR (MDRD) Non-Af 49 L BUN/Creatinine Ratio 6.6 L Glucose 114 H Calcium 9.7 <Dr. Anam Cuevas, DO - Last Filed: 03/09/23 00:20> [facility] Lab Data Labs: Laboratory Results - last 24 hr 03/08/23 16:40 WBC 12.0 H RBC 3.51 L Hgb 11.3 L Hct 36.0 L MCV 102.6 H MCH 32.2 H MCHC 31.4 L RDW Std Deviation 55.9 H RDW Coeff of Alfredo 14.8 H Plt Count 436 MPV 9.3 Immature Gran % (Auto) 1.100 H Neut % (Auto) 68.5 Lymph % (Auto) 17.1 L [place] % (Auto) 7.3 Eos % (Auto) 5.2 H Baso % (Auto) 0.8 Absolute Neuts (auto) 8.2 H Absolute Lymphs (auto) 2.05 Nucleated RBC % 0 Sodium 139 Potassium 3.6 Chloride 107 Carbon Dioxide 28.0 Anion Gap 4 L BUN 8 Creatinine 1.22 H Estim Creat Clear Calc 73.06 Est GFR (MDRD) Af Amer 59 L Est GFR (MDRD) Non-Af 49 L BUN/Creatinine Ratio 6.6 L Glucose 114 H Calcium 9.7 Treatment and Re-Evaluation :: I have personally performed a face to face assessment of the patient and have reviewed the LEIGH Note. I performed a substantive portion of the visit including all aspects of the following. My winslow findings include: History: Patient presents with chronic wound to her right lower leg. Patient states that she went to the urgent care Tuesday to have it evaluated. Patient states that they referred her to the emergency department for possible admission and IV antibiotics. Patient states the wound has been there for the past 2 weeks. Patient states nothing makes it better and nothing makes it worse. Patient states she has completed 2 courses of Keflex for this wound. Patient states that she is currently on her third round of Keflex and it has not been helping. Patient denies any fevers or chills. Patient denies any discharge or drainage. Exam: Vital signs are stable except for mildly elevated blood pressure 185/89. Patient is afebrile. Patient is in no acute distress. Oral mucosa is pink and moist. Neck is supple. Trachea is midline. There is no JVD. Heart was regular rate and rhythm. Lungs are clear and equal bilaterally. Abdomen is soft and nontender. Cranial nerves II through XII are intact. There are no focal motor or sensory deficits noted. There is a open wound over the anterior aspect of the right lower leg. There is some mild surrounding erythema. There is no purulent discharge or drainage noted. There is tenderness to palpation over the area. Pedal pulses are equal bilaterally. There is good range of motion of the right lower extremity. Medical Decision Making: Differential diagnosis includes cellulitis and wound infection. CBC will be obtained to assess for leukocytosis and anemia. Basic metabolic profile will be obtained to assess for electrolyte abnormality and funmilayo al function. Wound culture will be obtained to assess for wound infection. Patient was given a dose of clindamycin here. CBC was reviewed. There is a slight leukocytosis of 12.0. Hemoglobin was 11.3 and hematocrit was 36.0. These are consistent with prior results. Platelets were normal. Basic metabolic profile was reviewed. Creatinine was slightly elevated at 1.22. This is consistent with prior results. Glucose was slightly elevated at 114. The remainder is within normal limits. Anion gap was normal. Patient was advised of her findings. Patient was given a prescription for clindamycin. Patient was instructed to stop taking the Keflex. Patient was instructed to follow-up with her primary care physician and the wound care center in 5 to 7 days. Patient understood and was agreeable with the plan. All questions were answered. Discharge Plan Triage Chief Complaint: Wound ED Midlevel Provider: Nafisa Valadez ED Provider: Anam Cuevas Dx/Rx/DC Orders Clinical Impression: Leg wound, right Instructions: ED Cellulitis Prescriptions: New clindamycin HCl [Cleocin HCl] 300 mg capsule 300 mg PO Q6H 7 Days Qty: 28 0RF No Action budesonide-formoterol [Symbicort] 160-4.5 mcg/actuation HFA aerosol inhaler 2 puff INHALATION BID Nurtec ODT 75 mg tablet,disintegrating 75 mg PO ONCE PRN (Reason: MIGRAINES ) Emgality Pen 120 mg/mL pen injector 120 mg subcut QMONTH Patient Comments: PT STATES THEY WERE DUE TO GET THIS A WEEK AGO BUT CANNOT AFFORD TO DO SO AT THIS TIME 9AS OF 02-10-23) Trelegy Ellipta 100-62.5-25 mcg blister with device 1 ea INHALATION DAILY lorazepam 1 mg tablet 1 mg PO BID PRN (Reason: ANXIETY ) tramadol 50 mg tablet 50 mg PO TID progesterone micronized 200 mg capsule 400 mg PO QHS ProAir RespiClick 90 mcg/actuation aerosol powdr breath activated 2 inh INHALATION 4X/DAY PRN (Reason: SHORTNESS OF BREATH ) Qty: 1 0RF cyclobenzaprine 5 mg tablet 5 mg PO Q8H PRN (Reason: MUSCLE SPASMS ) magnesium oxide 400 mg (241.3 mg magnesium) tablet 400 mg PO DAILY potassium chloride 10 mEq capsule, extended release 10 meq PO DAILY levothyroxine 175 mcg tablet 175 mcg PO DAILY atorvastatin 80 mg Tablet 80 mg PO DAILY gabapentin 100 mg capsule 400 mg PO QHS cephalexin 500 mg capsule 500 mg PO BID Patient Comments: TAKE 1 CAPSULE BY MOUTH TWICE DAILY metoclopramide HCl [Reglan] 10 mg tablet 10 mg PO Q6H PRN (Reason: NAUSEA AND VOMTING ) Qty: 20 0RF promethazine [Promethegan] 25 mg suppository 25 mg KS Q6H PRN PRN (Reason: Nausea) Qty: 12 0RF cephalexin 500 mg capsule 500 mg PO Q6 7 Days Qty: 28 0RF citalopram 40 mg tablet 40 mg PO DAILY amlodipine 10 mg tablet 10 mg PO DAILY Qty: 90 3RF valsartan 320 mg tablet 160 mg PO BID Qty: 90 3RF Primary Care Provider: Halina Johnson Referrals: Halina Johnson, [Primary Care Provider] - 3-5 Days Activity Restrictions/Additional Instructions: Please follow-up with your PCP and return for any worsening of your symptoms. Disposition Disposition: Home, Self Care Discharge Date/Time: 03/08/23 18:50
[2023-03-08 16:49] LABS: Absolute Lymphocyte Count 2.05 X10^3/uL (0.83-4.51); Absolute Neutrophil Count 8.2 X10^3/uL (2.0-7.7); Basophil# 0.09 X10^3/uL; Basophil% 0.8 % (0-1); Eosinophil# 0.62 X10^3/uL; Eosinophils% 5.2 % (0-5); Hemoglobin 11.3 g/dL (12.0-15.0); Lymphocyte # 2.05 X10^3/ul (0.83-4.51); Lymphocyte % 17.1 % (19-41); Mean Corp Hgb Conc 31.4 g/dL (32-36); Mean Corpuscular Hgb 32.2 pg (27.0-32.0); Mean Corpuscular Volume 102.6 fL (81-99); Mean Platelet Vol. 9.3 fl (6.2-12.0); Monocyte# 0.87 X10^3/uL; Monocyte% 7.3 % (0-10); NRBC Flagged by Analyzer 0 % (0-5); Neutrophil # 8.23 X10^3/uL (2.7-7.7); Neutrophil % 68.5 % (47-70); Platelet Count 436 K/mm3 (150-450); RBC Distribution Width CV 14.8 % (11.6-14.6); RBC Distribution Width SD 55.9 fl (35.1-43.9); Red Blood Count 3.51 M/mm3 (4.2-5.4)
[2023-03-08 17:04] LABS: Anion Gap 4 (5-15); BUN 8 mg/dL (7-18); BUN/Creat Ratio 6.6 RATIO (10-20); Calcium,Total 9.7 mg/dL (8.5-10.1); Chloride 107 mmol/L (98-107); Creatinine, Serum 1.22 mg/dL (0.55-1.02); EST Glomerular Filtration Rate 49 mL/min (>60); Est Glom Filt Rate - Afr Amer 59 mL/min (>60); Estimated Creatinine Clearance 73.06 ml/min; Glucose 114 mg/dL (74-106); Potassium 3.6 mmol/L (3.5-5.1); Sodium Level 139 mmol/L (136-145)
[2023-03-08] MEDS: Clindamycin 600 MG/50 ML BAG 100 MG IV (17:51)
[2023-03-08 18:16] VITALS: BP 150/97; PULSE 89; RESP 12; O2SAT 98
--- OUTSIDE RECORDS SUMMARY | 2023-03-08 18:17 | XMS RPT_ITS | CCD ---
Author Name Unknown Address [address] [place] [address] Organization [facility] Care Team Providers Care Ammonia Operator Name Role Phone Ysabel Lutz Primary Care Provider KAREN OBRIEN - YSABEL MOREL Primary Care Phys ician Milan Cervantes Primary Care Provider [phone] Ysabel Lutz CNP Primary Care Provider [phone] Clifton Sanchez Chi Primary Care Provider [phone] DR LUZ ELENA SANCHEZ MD Primary Care Physician PHYSICIAN, NONE Primary Care Physician Unavailab le Unavailable Primary Care Provider Unavailabl e Aram Johnson DO Primary Care Provider [phone] PHYSICIAN, NOT RECORDED Primary Care Physician U navailable Aram Johnson DO Primary Care Provider [phone] ARAM JOHNSON DO Primary Care Physician [phone] [facility] Referring Unavailable DANIEL, CLIFTON CHI Primary Care Unavailable YSABEL LUTZ Primary Care Unavailable DANIEL, CLIFTON CHI Primary Care Unavailable DANIEL, CLIFTON CHI Primary Care Unavailable ARAM JOHNSON Primary Care Unavailable ARAM JOHNSON Primary Care Unavailable WHITLEY HSIEH Referring Unavailable ARAM JOHNSON Primary Care Unavailable ARAM JOHNSON Primary Care Unavailable ARAM JOHNSON Primary Care Unavailable SATNAM RODRIGUEZ Referring Unavailable YSABEL LUTZ Primary Care Unavailable YSABEL LUTZ Primary Care Unavailable ARAM JOHNSON Primary Care Unavailable DION ESCOBAR R Referring Unavailable DANIEL, CLIFTON CHI Primary Care Unavailable DANIEL, CLIFTON CHI Primary Care Unavailable DANIEL, CL[facility]ON [facility] Primary Care Unavailable ARIAN DO, ARAM Primary Care Unavailable AUDRA PHILLIPS DO Attending Unavailable PHYSICIAN, NOT RECORDED Primary Care Unavaila SHEELA Eid MD Attending Unavailable DON MORALEZ, DR OMEGA Liu Attending Unavailable DANIEL GONZALEZ, DR LAGUNA Primary Care Unavailable RIDCEDRIC MORALEZ, DR OMEGA Liu Attending Unavailable DANIEL GONZALEZ, DR LAGUNA Primary Care Unavailable ARIAN DO, ARAM Primary Care Unavailable PAU GONZALEZ, DR DAQUAN Crook Attending Unavailtamy JENKINS MD, DR COTTER Attending Unavailabl e ARIAN DO, ARAM Primary Care Unavailable ARIAN DO, ARAM Primary Care Unavailable OWOC DO, DR DEBBIE Zelaya Attending Unavailabl e KAREN SAP BPC ARCHITECT - HOSPITAL COORDINATOR, YSABEL Lucas Primary Care U navailable KAREN SAP BPC ARCHITECT - HOSPITAL COORDINATOR, YSABEL Lucas Attending U navailable ARIAN DO, ARAM Primary Care Unavailable ALEX TEMPLETON MD Attending Unavailable DYLAN GONZALEZ, LAURA Mehta Attending Unavail able ARIAN DO, ARAM Primary Care Unavailable ARIAN DO, ARAM Primary Care Unavailable MICHELLE DICKSON MD Attending Unavailable DANIEL GONZALEZ, DR LAGUNA Primary Care Unavailable RANDOLPH GONZALEZ, DR INA Liu Attending Unavailable RADHIKA GONZALEZ, SHEELA Liu Attending Unavailable PHYSICIAN, NONE Primary Care Unavailable PHYSICIAN, NOT RECORDED Primary Care UnavailFABIAN Brenner DO Attending Unavailable Allergies Allergy Classification Reported Allergen(s) Allergy Type Date of Onset Reaction(s) Facility (1 source) Aluminum aspirin Drug Allergy 04-23-2020 Nausea Only [facility] Work Phone: (15 sources) hydroCHLOROthiaz rosa maria; Translations: [HYDROCHLOROTHIA ZIDE] Drug Allergy 09-28-2019 Unknown [facility] Work Phone: (20 sources) Naproxen; Translations: [naproxen] Drug Allergy 11-05-2018 Vomiting [facility] Work Phone: (14 sources) Aspirin; Translations: [aspirin] Drug Allergy NAUSEA [facility] (16 sources) Salicylate product; Translations: [SALICYLATES] Propensity to adverse reactions 12-21-2007 [facility] Work Phone: Medications Current Medications Medication Drug [...] / HYDROcodone bitartrate 5 mg oral tablet (5 sources) Opioid Agonist Start: 02-17-2023 End: 02-20-2023 take 1 tablet by mouth every six hours as needed for pain Lester 325- 5 mg oral tablet Dose = 1 tab(s), Oral, q6h, PRN for pain, # 10 tab(s), 0 Refill(s), Headache, 129.4 Start Date: 02/17/23 Stop Date: 02/20/23 Status: Ordered amLODIPine 10 mg oral tablet (15 sources) Dihydropyridine Calcium Channel Shad Start: 05-20-2022 End: 07-19-2022 amLODIPine 10 mg oral tablet Dose : 10 mg = 1 tab(s), Oral, qDay, # 30 tab(s), 1 Refill(s), Pharmacy: [id number], 162, cm, 05/20/22 15:06:00 EDT, Height, kg, 05/20/22 15:06:00 EDT, Dosing Weight Start Date: 05/20/22 Stop Date: 07/19/22 Status: Ordered Problems Active Problems Problem Classification Problem Date Documented Date Episodic/Chronic Abdominal pain (1 source) Abdominal pain; Translations: [Unspecified abdominal pain] Onset: 3 Episodic Anxiety disorders (15 sources) Mixed anxiety and depressive disorder; Translations: [Panic disorder without agoraphobia] Onset: 3 11-25-2018 Chronic Asthma (15 sources) Asthma; Translations: [Exacerbation of asthma] 03-17-2020 Chronic Biliary tract disease (14 sources) Biliary calculus 04-21-2021 Episodic Chronic obstructive pulmonary disease and bronchiectasis (1 source) Bronchitis; Translations: [Bronchitis, not specified as acute or chronic] 11-16-2022 Episodic Conditions associated with dizziness or vertigo (13 sources) Dizziness and giddiness; Translations: [Dizziness and giddiness] Onset: 3 09-23-2021 Episodic Deficiency and other anemia (14 sources) Iron deficiency anemia 07-17-2019 Episodic Deficiency and other anemia (11 sources) Macrocytic anemia 02-16-2022 Episodic Diabetes mellitus without complication (14 sources) Type 2 diabetes mellitus 01-28-2020 Chronic Disorders of lipid metabolism (14 sources) Hypercholesterolemia 05-09-2020 Chronic Esophageal disorders (14 sources) Gastroesophageal reflux disease 01-28-2020 Chronic Essential hypertension (14 sources) Hypertensive disorder 12-25-2018 Chronic Fluid and electrolyte disorders (1 source) Hypokalemia; Translations: [Hypokalemia] Onset: 2 Episodic Fracture of lower limb (1 source) Unspecified fracture of shaft of unspecified fibula, initial encounter for closed fracture; Translations: [Unspecified fracture of shaft of unspecified fibula, initial encounter for closed fracture] Onset: 3 Episodic Gout and other crystal arthropathies (14 sources) Gout 01-02-2019 Chronic Past or Other [...] Time Vital Sign Value Performing Clinician Facility 03-05-2023 09:52-0500 Blood Pressure Location MICHELLE DICKSON MD [facility] 03-05-2023 09:52-0500 Body temperature 97.16 [degF] MICHELLE DICKSON MD [facility] 03-05-2023 09:52-0500 Diastolic Blood Pressure Non-Invasive 85 mm[Hg] MICHELLE DICKSON MD [facility] 03-05-2023 09:52-0500 Heart rate 77 /min MICHELLE DICKSON MD [facility] 03-05-2023 09:52-0500 Respiratory rate 77 /min MICHELLE DICKSON MD [facility] 03-05-2023 09:52-0500 Systolic Blood Pressure Non-Invasive 133 mm[Hg] MICHELLE DICKSON MD [facility] 02-28-2023 12:11-0500 Body temperature 98.78 [degF] LAURA RICHARDSON MD [facility] 02-28-2023 12:11-0500 Diastolic Blood Pressure Non-Invasive 89 mm[Hg] LAURA RICHARDSON MD [facility] 02-28-2023 12:11-0500 Heart rate 101 /min LAURA RICHARDSON MD [facility] 02-28-2023 12:11-0500 Respiratory rate 22 /min LAURA RICHARDSON MD [facility] 02-28-2023 12:11-0500 Systolic Blood Pressure Non-Invasive 145 mm[Hg] LAURA RICHARDSON MD [facility] 02-27-2023 07:15-0500 Diastolic Blood Pressure Non-Invasive 87 mm[Hg] ALEX TEMPLETON MD [facility] 02-27-2023 07:15-0500 Heart rate 102 /min ALEX TEMPLETON MD [facility] 02-27-2023 07:15-0500 Respiratory rate 18 /min ALEX TEMPLETON MD [facility] 02-27-2023 07:15-0500 Systolic Blood Pressure Non-Invasive 129 mm[Hg] ALEX TEMPLETON MD [facility] 02-27-2023 06:20-0500 Body temperature 97.88 [degF] ALEX TEMPLETON MD [facility] 02-27-2023 06:20-0500 Diastolic Blood Pressure Non-Invasive 107 mm[Hg] ALEX TEMPLETON MD [facility] 02-27-2023 06:20-0500 Heart rate 103 /min ALEX TEMPLETON MD [facility] 02-27-2023 06:20-0500 Respiratory rate 14 /min ALEX TEMPLETON MD [facility] 02-27-2023 06:20-0500 Systolic Blood Pressure Non-Invasive 146 mm[Hg] ALEX TEMPLETON MD [facility] 02-24-2023 17:16-0500 Diastolic Blood Pressure Non-Invasive 95 mm[Hg] DR DEBBIE CHATMAN DO [facility] 02-24-2023 17:16-0500 Heart rate 94 /min DR DEBBIE CHATMAN DO [facility] 02-24-2023 17:16-0500 Respiratory rate 22 /min DR DEBBIE CHATMAN DO [facility] 02-24-2023 17:16-0500 Systolic Blood Pressure Non-Invasive 170 mm[Hg] DR DEBBIE CHATMAN DO [facility] 02-24-2023 16:35-0500 Body height 162.[address] DEBBIE CHATMAN DO [facility] 02-24-2023 16:35-0500 Body temperature 98.06 [degF] DR DEBBIE CHATMAN DO [facility] 02-24-2023 16:35-0500 Body weight [address] DEBBIE CHATMAN DO [facility] 02-24-2023 16:35-0500 Diastolic Blood Pressure Non-Invasive 114 mm[Hg] DR DEBBIE CHATMAN DO [facility] 02-24-2023 16:35-0500 Heart rate 102 /min DR DEBBIE CHATMAN DO [facility] 02-24-2023 16:35-0500 Respiratory rate 20 /min DR DEBBIE CHATMAN DO [facility] 02-24-2023 16:35-0500 Systolic Blood Pressure Non-Invasive 156 mm[Hg] DR DEBBIE CHATMAN DO [facility] 02-17-2023 09:39-0500 Diastolic Blood Pressure Non-Invasive 101 mm[Hg] DR DAQUAN MAI MD [facility] 02-17-2023 09:39-0500 Heart rate 94 /min DR DAQUAN MAI MD [facility] 02-17-2023 09:39-0500 Mean blood pressure 116 mm[Hg] DR DAQUAN MAI MD [facility] 02-17-2023 09:39-0500 Reason For Taking VItal Signs DR DAQUAN MAI MD [facility] 02-17-2023 09:39-0500 Respiratory rate 16 /min DR DAQUAN MAI MD [facility] 02-17-2023 09:39-0500 Systolic Blood Pressure Non-Invasive 158 mm[Hg] DR DAQUAN MAI MD [facility] 02-17-2023 07:34-0500 Body temperature 98.42 [degF] DR DAQUAN MAI MD [facility] 02-17-2023 07:34-0500 Diastolic Blood Pressure Non-Invasive 105 mm[Hg] DR DAQUAN MAI MD [facility] 02-17-2023 07:34-0500 Heart rate 88 /min DR DAQUAN MAI MD [facility] 02-17-2023 07:34-0500 Respiratory rate 16 /min DR DAQUAN MAI MD [facility] 02-17-2023 07:34-0500 Systolic Blood Pressure Non-Invasive 163 mm[Hg] DR DAQUAN MAI MD [facility] 01-23-2023 12:24-0500 Blood Pressure Location AUDRA REICHFIELD DO [facility] 01-23-2023 12:24-0500 Diastolic Blood Pressure Non-Invasive 76 mm[Hg] AUDRA REICHFIELD DO [facility] 01-23-2023 12:24-0500 Heart rate 81 /min AUDRA REICHFIELD DO [facility] 01-23-2023 12:24-0500 Reason For Taking VItal Signs AUDRA REICHFIELD DO [facility] 01-23-2023 12:24-0500 Respiratory rate 16 /min AUDRA REICHFIELD DO [facility] 01-23-2023 12:24-0500 Systolic Blood Pressure Non-Invasive 120 mm[Hg] AUDRA REICHFIELD DO [facility] 01-23-2023 09:16-0500 Blood Pressure Location AUDRA REICHFIELD DO [facility] 01-23-2023 09:16-0500 Body temperature 98.6 [degF] AUDRA REICHFIELD DO [facility] 01-23-2023 09:16-0500 Diastolic Blood Pressure Non-Invasive 86 mm[Hg] AUDRA REICHFIELD DO [facility] 01-23-2023 09:16-0500 Heart rate 84 /min AUDRA REICHFIELD DO [facility] 01-23-2023 09:16-0500 Respiratory rate 16 /min AUDRA REICHFIELD DO [facility] 01-23-2023 09:16-0500 Systolic Blood Pressure Non-Invasive 134 mm[Hg] AUDRA REICHFIELD DO [facility] 01-18-2023 07:37-0500 Body temperature 96.8 [degF] Satnam Rodriguez SAP BPC ARCHITECT.HOSPITAL COORDINATOR Work Phone: [facility] 01-18-2023 07:37-0500 Body weight 130.18 kg Satnam Rodriguez SAP BPC ARCHITECT.HOSPITAL COORDINATOR Work Phone: [facility] 01-18-2023 07:37-0500 Diastolic blood pressure 80 mm[Hg] Satnam Michael SAP BPC ARCHITECT.HOSPITAL COORDINATOR Work Phone: [facility] 01-18-2023 07:37-0500 Heart rate 94 /min Satnam Michael SAP BPC ARCHITECT.HOSPITAL COORDINATOR Work Phone: [facility] 01-18-2023 07:37-0500 Respiratory rate 16 /min Satnam Michael SAP BPC ARCHITECT.HOSPITAL COORDINATOR Work Phone: [facility] 01-18-2023 07:37-0500 SaO2% (BldA) [Mass fraction] 96 % Satnam Michael SAP BPC ARCHITECT.HOSPITAL COORDINATOR Work Phone: [facility] 01-18-2023 07:37-0500 Systolic blood pressure 132 mm[Hg] Satnam Michael SAP BPC ARCHITECT.HOSPITAL COORDINATOR Work Phone: [facility] 01-17-2023 09:47-0500 Body temperature 96.91 [degF] Whitley Praisler-Wood SAP BPC ARCHITECT.HOSPITAL COORDINATOR Work Phone: [facility] 01-17-2023 09:47-0500 Body weight 129.28 kg Whitley Praisler-Wood SAP BPC ARCHITECT.HOSPITAL COORDINATOR Work Phone: [facility] 01-17-2023 09:47-0500 Diastolic blood pressure 88 mm[Hg] Whitley Praisler-Wood SAP BPC ARCHITECT.HOSPITAL COORDINATOR Work Phone: [facility] 01-17-2023 09:47-0500 Heart rate 82 /min Whitley Praisler-Wood SAP BPC ARCHITECT.HOSPITAL COORDINATOR Work Phone: [facility] 01-17-2023 09:47-0500 Respiratory rate 18 /min Whitley Praisler-Wood SAP BPC ARCHITECT.HOSPITAL COORDINATOR Work Phone: [facility] 01-17-2023 09:47-0500 SaO2% (BldA) [Mass fraction] 96 % Whitley Praisler-Wood SAP BPC ARCHITECT.HOSPITAL COORDINATOR Work Phone: [facility] 01-17-2023 09:47-0500 Systolic blood pressure 142 mm[Hg] Whitley Praisler-Wood SAP BPC ARCHITECT.HOSPITAL COORDINATOR Work Phone: [facility] 01-10-2023 11:49-0500 Diastolic Blood Pressure Non-Invasive 81 1 SHEELA GARRIDO MD [facility] 01-10-2023 11:49-0500 Heart rate 68 /min SHEELA GARRIDO MD [facility] 11-13-2023 11:49-0500 Respiratory rate 20 /min SHEELA GARRIDO MD [facility] 01-10-2023 11:49-0500 Systolic Blood Pressure Non-Invasive 153 1 SHEELA GARRIDO MD [facility] 01-10-2023 10:16-0500 Diastolic Blood Pressure Non-Invasive 94 1 SHEELA GARRIDO MD [facility] 01-10-2023 10:16-0500 Heart rate 66 /min SHEELA GARRIDO MD [facility] 01-10-2023 10:16-0500 Respiratory rate 17 /min SHEELA GARRIDO MD [facility] 01-10-2023 10:16-0500 Systolic Blood Pressure Non-Invasive 152 1 SHEELA GARRIDO MD [facility] 01-10-2023 09:06-0500 Body temperature 97.52 [degF] SHEELA GARRIDO MD [facility] 01-10-2023 09:06-0500 Diastolic Blood Pressure Non-Invasive 97 1 SHEELA GARRIDO MD [facility] 01-10-2023 09:06-0500 Heart rate 72 /min SHEELA GARRIDO MD [facility] 01-10-2023 09:06-0500 Systolic Blood Pressure Non-Invasive 139 1 SHEELA GARRIDO MD [facility] 01-10-2023 08:35-0500 Blood Pressure Location SHEELA GARRIDO MD [facility] 01-10-2023 08:35-0500 Blood Pressure Method SHEELA GARRIDO MD [facility] 01-10-2023 08:35-0500 Body height 162.6 cm SHEELA GARRIDO MD [facility] 01-10-2023 08:35-0500 Body weight 129.4 kg SHEELA GARRIDO MD [facility] 01-10-2023 08:35-0500 Heart rate 98 /min SHEELA GARRIDO MD [facility] 01-10-2023 08:35-0500 Respiratory rate 20 /min SHEELA GARRIDO MD [facility] 12-25-2022 01:29-0400 Diastolic Blood Pressure Non-Invasive 79 1 FABIAN DURESKA DO [facility] 12-25-2022 01:29-0400 Heart rate 75 /min FABIAN DURESKA DO [facility] 12-25-2022 01:29-0400 Respiratory rate 16 /min FABIAN DURESKA DO [facility] 12-25-2022 01:29-0400 Systolic Blood Pressure Non-Invasive 119 1 FABIAN DURESKA DO [facility] 12-25-2022 00:30-0400 Diastolic Blood Pressure Non-Invasive 75 1 FABIAN DURESKA DO [facility] 12-25-2022 00:30-0400 Heart rate 75 /min FABIAN DURESKA DO [facility] 12-25-2022 00:30-0400 Respiratory rate 16 /min FABIAN DURESKA DO [facility] 12-25-2022 00:30-0400 Systolic Blood Pressure Non-Invasive 135 1 FABIAN DURESKA DO [facility] 12-24-2022 22:30-0400 Diastolic Blood Pressure Non-Invasive 80 1 FABIAN DURESKA DO [facility] 12-24-2022 22:30-0400 Heart rate 72 /min FABIAN DURESKA DO [facility] 12-24-2022 22:30-0400 Reason For Taking VItal Signs FABIAN DURESKA DO [facility] 12-24-2022 22:30-0400 Respiratory rate 16 /min FABIAN DURESKA DO [facility] 12-24-2022 22:30-0400 Systolic Blood Pressure Non-Invasive 123 1 FABIAN DURESKA DO [facility] 12-24-2022 19:56-0400 Reason For Taking VItal Signs FABIAN HEARNESKA DO [facility] 12-24-2022 18:06-0400 Body height 162.6 cm FABIAN DURESKA DO [facility] 12-24-2022 18:06-0400 Body temperature 97.88 [degF] FABIAN DURESKA DO [facility] 12-24-2022 18:06-0400 Body weight 127.3 kg FABIAN DURESKA DO [facility] 12-24-2022 18:06-0400 Heart rate 83 /min FABIAN DURESKA DO [facility] 12-14-2022 10:52-0400 Body temperature 97.7 [degF] Whitley Hsieh SAP BPC ARCHITECT.HOSPITAL COORDINATOR Work Phone: [facility] 12-14-2022 10:52-0400 Body weight 130.18 kg Whitley Praisler-Wood SAP BPC ARCHITECT.HOSPITAL COORDINATOR Work Phone: [facility] 12-14-2022 10:52-0400 Diastolic blood pressure 80 mm[Hg] Whitley Praisler-Wood SAP BPC ARCHITECT.HOSPITAL COORDINATOR Work Phone: [facility] 12-14-2022 10:52-0400 Heart rate 78 /min Whitley Praisler-Wood SAP BPC ARCHITECT.HOSPITAL COORDINATOR Work Phone: [facility] 12-14-2022 10:52-0400 Respiratory rate 16 /min Whitley Praisler-Wood SAP BPC ARCHITECT.HOSPITAL COORDINATOR Work Phone: [facility] 12-14-2022 10:52-0400 SaO2% (BldA) [Mass fraction] 97 % Whitley Praisler-Wood SAP BPC ARCHITECT.HOSPITAL COORDINATOR Work Phone: [facility] 12-14-2022 10:52-0400 Systolic blood pressure 128 mm[Hg] Whitley Praisler-Wood SAP BPC ARCHITECT.HOSPITAL COORDINATOR Work Phone: [facility] 11-16-2022 10:58-0400 Body temperature 97.7 [degF] Dion Athy PA-C Work Phone: [facility] 11-16-2022 10:58-0400 Body weight 126.1 kg Dion Athy PA-C Work Phone: [facility] 11-16-2022 10:58-0400 Diastolic blood pressure 82 mm[Hg] Dion Athy PA-C Work Phone: [facility] 11-16-2022 10:58-0400 Heart rate 102 /min Dion Athy PA-C Work Phone: [facility] 11-16-2022 10:58-0400 Respiratory rate 18 /min Dion Athy PA-C Work Phone: [facility] 11-16-2022 10:58-0400 SaO2% (BldA) [Mass fraction] 98 % Dion Athy PA-C Work Phone: [facility] 11-16-2022 10:58-0400 Systolic blood pressure 138 mm[Hg] Dion Athy PA-C Work Phone: [facility] 10-03-2022 15:59-0400 Body temperature 98.42 [degF] SHEELA GARRIDO MD [facility] 10-03-2022 15:59-0400 Diastolic Blood Pressure Non-Invasive 88 1 SHEELA GARRIDO MD [facility] 10-03-2022 15:59-0400 Heart rate 96 /min SHEELA GARRIDO MD [facility] 10-03-2022 15:59-0400 Respiratory rate 18 /min SHEELA GARRIDO MD [facility] 10-03-2022 15:59-0400 Systolic Blood Pressure Non-Invasive 124 1 SHEELA GARRIDO MD [facility] 10-03-2022 13:36-0400 Blood Pressure Cuff Size SHEELA GARRIDO MD [facility] 10-03-2022 13:36-0400 Blood Pressure Location SHEELA GARRIDO MD [facility] 10-03-2022 13:36-0400 Blood Pressure Method SHEELA GARRIDO MD [facility] 10-03-2022 13:36-0400 Body temperature 98.6 [degF] SHEELA GARRIDO MD [facility] 10-03-2022 13:36-0400 Diastolic Blood Pressure Non-Invasive 85 1 SHEELA GARRIDO MD [facility] 10-03-2022 13:36-0400 Heart rate 104 /min SHEELA GARRIDO MD [facility] 10-03-2022 13:36-0400 Respiratory rate 20 /min SHEELA GARRIDO MD [facility] 10-03-2022 13:36-0400 Systolic Blood Pressure Non-Invasive 128 1 SHEELA GARRIDO MD [facility] 09-22-2022 23:41-0400 Body temperature 98.24 [degF] DR OMEGA OCHOA DO [facility] 09-22-2022 23:41-0400 Diastolic Blood Pressure Non-Invasive [address] OMEGA OCHOA DO [facility] 09-22-2022 23:41-0400 Heart rate 100 /min DR OMEGA OCHOA DO [facility] 09-22-2022 23:41-0400 Respiratory rate 20 /min DR OMEGA OCHOA DO [facility] 09-22-2022 23:41-0400 Systolic Blood Pressure Non-Invasive [address] OMEGA OCHOA DO [facility] 08-17-2022 14:34-0400 Diastolic blood pressure 94 mm[Hg] Whitley Praisler-Wood SAP BPC ARCHITECT.HOSPITAL COORDINATOR Work Phone: [facility] 08-17-2022 14:34-0400 Heart rate 83 /min Whitley Prashayyler-Mohan SAP BPC ARCHITECT.HOSPITAL COORDINATOR Work Phone: [facility] 08-17-2022 14:34-0400 SaO2% (BldA) [Mass fraction] 98 % Whitley Praisler-Wood SAP BPC ARCHITECT.HOSPITAL COORDINATOR Work Phone: [facility] 08-17-2022 14:34-0400 Systolic blood pressure 182 mm[Hg] Whitley Praisler-Wood SAP BPC ARCHITECT.HOSPITAL COORDINATOR Work Phone: [facility] 08-17-2022 13:36-0400 Body temperature 98.2 [degF] Whitley Praisler-Wood SAP BPC ARCHITECT.HOSPITAL COORDINATOR Work Phone: [facility] 08-17-2022 13:36-0400 Body weight 114.31 kg Whitley Kemp-Wood SAP BPC ARCHITECT.HOSPITAL COORDINATOR Work Phone: [facility] 08-17-2022 13:36-0400 Respiratory rate 16 /min Whitley Lancasterler-Wood SAP BPC ARCHITECT.HOSPITAL COORDINATOR Work Phone: [facility] 08-13-2022 22:09-0400 Diastolic Blood Pressure Non-Invasive [address] INA DICKSON MD [facility] 08-13-2022 22:09-0400 Heart rate 85 /min DR INA DICKSON MD [facility] 08-13-2022 22:09-0400 Respiratory rate 20 /min DR INA DICKSON MD [facility] 08-13-2022 22:09-0400 Systolic Blood Pressure Non-Invasive [address] INA DICKSON MD [facility] 08-13-2022 20:59-0400 Body temperature 98.06 [degF] DR INA DICKSON MD [facility] 08-13-2022 20:59-0400 Diastolic Blood Pressure Non-Invasive [address] INA DICKSON MD [facility] 08-13-2022 20:59-0400 Heart rate 80 /min DR INA DICKSON MD [facility] 08-13-2022 20:59-0400 Respiratory rate 18 /min DR INA DICKSON MD [facility] 08-13-2022 20:59-0400 Systolic Blood Pressure Non-Invasive [address] INA DICKSON MD [facility] 07-28-2022 09:55-0400 Body temperature 98.01 [degF] Dion GERMANC Work Phone: [facility] 07-28-2022 09:55-0400 Body weight 122.47 kg Dion Athy PA-C Work Phone: [facility] 07-28-2022 09:55-0400 Diastolic blood pressure 80 mm[Hg] Dion Athy PA-C Work Phone: [facility] 07-28-2022 09:55-0400 Heart rate 62 /min Dion Athy PA-C Work Phone: [facility] 07-28-2022 09:55-0400 Respiratory rate 18 /min Dion Athy PA-C Work Phone: [facility] 07-28-2022 09:55-0400 SaO2% (BldA) [Mass fraction] 98 % Dion Athy PA-C Work Phone: [facility] 07-28-2022 09:55-0400 Systolic blood pressure 122 mm[Hg] Dion Athy PA-C Work Phone: [facility] 05-04-2022 14:35-0500 Body temperature 98.4 [degF] Dion Athy PA-C Work Phone: [facility] 05-04-2022 14:35-0500 Body weight 121.38 kg Dion Athy PA-C Work Phone: [facility] 05-04-2022 14:35-0500 Diastolic blood pressure 88 mm[Hg] Dion Athy PA-C Work Phone: [facility] 05-04-2022 14:35-0500 Heart rate 87 /min Dion Athy PA-C Work Phone: [facility] 05-04-2022 14:35-0500 Respiratory rate 18 /min Dion Athy PA-C Work Phone: [facility] 05-04-2022 14:35-0500 SaO2% (BldA) [Mass fraction] 99 % Dion Athy PA-C Work Phone: [facility] 05-04-2022 14:35-0500 Systolic blood pressure 148 mm[Hg] Dion Escobar PA-C Work Phone: [facility] 04-17-2022 13:18-0500 Body temperature 97.81 [degF] Jessica Dayna SAP BPC ARCHITECT.HOSPITAL COORDINATOR Work Phone: [facility] 04-17-2022 13:18-0500 Body weight 124.92 kg Jessica Dayna SAP BPC ARCHITECT.HOSPITAL COORDINATOR Work Phone: [facility] 04-17-2022 13:18-0500 Diastolic blood pressure 110 mm[Hg] Jessica Dayna SAP BPC ARCHITECT.HOSPITAL COORDINATOR Work Phone: [facility] 04-17-2022 13:18-0500 Heart rate 79 /min Jessica Dayna SAP BPC ARCHITECT.HOSPITAL COORDINATOR Work Phone: [facility] 04-17-2022 13:18-0500 Respiratory rate 21 /min Jessica Dayna SAP BPC ARCHITECT.HOSPITAL COORDINATOR Work Phone: [facility] 04-17-2022 13:18-0500 SaO2% (BldA) [Mass fraction] 97 % Jessica Dayna SAP BPC ARCHITECT.HOSPITAL COORDINATOR Work Phone: [facility] 04-17-2022 13:18-0500 Systolic blood pressure 152 mm[Hg] Jessica Dayna SAP BPC ARCHITECT.HOSPITAL COORDINATOR Work Phone: [facility] 02-25-2022 15:16-0500 Body temperature 98.71 [degF] Ria Older SAP BPC ARCHITECT.HOSPITAL COORDINATOR Work Phone: [facility] 02-25-2022 15:16-0500 Body weight 124.1 kg Ria Older SAP BPC ARCHITECT.HOSPITAL COORDINATOR Work Phone: [facility] 02-25-2022 15:16-0500 Diastolic blood pressure 80 mm[Hg] Ria Older SAP BPC ARCHITECT.HOSPITAL COORDINATOR Work Phone: [facility] 02-25-2022 15:16-0500 Heart rate 82 /min Ria Older SAP BPC ARCHITECT.HOSPITAL COORDINATOR Work Phone: [facility] 02-25-2022 15:16-0500 Respiratory rate 16 /min Ria Older SAP BPC ARCHITECT.HOSPITAL COORDINATOR Work Phone: [facility] 02-25-2022 15:16-0500 SaO2% (BldA) [Mass fraction] 99 % Ria Older SAP BPC ARCHITECT.HOSPITAL COORDINATOR Work Phone: [facility] 02-25-2022 15:16-0500 Systolic blood pressure 138 mm[Hg] Ria Older SAP BPC ARCHITECT.HOSPITAL COORDINATOR Work Phone: [facility] 12-20-2021 16:49-0400 Diastolic blood pressure 88 mm[Hg] DR VAHE JENKINS MD [facility] 12-20-2021 16:49-0400 Heart rate 80 /min DR VAHE JENKINS MD [facility] 12-20-2021 16:49-0400 Respiratory rate 18 /min DR VAHE JENKINS MD [facility] 12-20-2021 16:49-0400 Systolic blood pressure 174 mm[Hg] DR VAHE JENKINS MD [facility] 12-20-2021 15:50-0400 Body temperature 97.7 [degF] DR VAHE JENKINS MD [facility] 12-20-2021 15:50-0400 Heart rate 76 /min DR VAHE JENKINS MD [facility] 12-20-2021 15:50-0400 Respiratory rate 18 /min DR VAHE JENKINS MD [facility] 12-20-2021 13:53-0400 Body temperature 99.68 [degF] DR VAHE JENKINS MD [facility] 12-20-2021 13:53-0400 Diastolic blood pressure 100 mm[Hg] DR VAHE JENKINS MD [facility] 12-20-2021 13:53-0400 Heart rate 78 /min DR VAHE JENKINS MD [facility] 12-20-2021 13:53-0400 Respiratory rate 18 /min DR VAHE JENKINS MD [facility] 12-20-2021 13:53-0400 Systolic blood pressure 160 mm[Hg] DR VAHE JENKINS MD [facility] 11-13-2021 11:51-0400 Body temperature 97.39 [degF] Dion Athy PA-C Work Phone: [facility] 11-13-2021 11:51-0400 Body weight 129.18 kg Dion Athy PA-C Work Phone: [facility] 11-13-2021 11:51-0400 Diastolic blood pressure 72 mm[Hg] Dion Athy PA-C Work Phone: [facility] 11-13-2021 11:51-0400 Heart rate 78 /min Dion Athy PA-C Work Phone: [facility] 11-13-2021 11:51-0400 Respiratory rate 16 /min Dion Athy PA-C Work Phone: [facility] 11-13-2021 11:51-0400 SaO2% (BldA) [Mass fraction] 98 % Dion Athy PA-C Work Phone: [facility] 11-13-2021 11:51-0400 Systolic blood pressure 130 mm[Hg] Dion Athy PA-C Work Phone: [facility] 10-17-2021 11:10-0400 Body temperature 98.01 [degF] Jac Mullen MD Work Phone: [facility] 10-17-2021 11:10-0400 Body weight 126.55 kg Jac Mullen MD Work Phone: [facility] 10-17-2021 11:10-0400 Diastolic blood pressure 84 mm[Hg] Jac Mullen MD Work Phone: [facility] 10-17-2021 11:10-0400 Heart rate 66 /min Jac Mullen MD Work Phone: [facility] 10-17-2021 11:10-0400 Respiratory rate 16 /min Jac Mullen MD Work Phone: [facility] 10-17-2021 11:10-0400 SaO2% (BldA) [Mass fraction] 99 % Jac Mullen MD Work Phone: [facility] 10-17-2021 11:10-0400 Systolic blood pressure 122 mm[Hg] Jac Mullen MD Work Phone: [facility] 06-10-2021 11:20-0400 Diastolic Blood Pressure NBP 63 1 IRMA JEWELL DO [facility] 06-10-2021 11:20-0400 Heart rate 75 /min IRMA JEWELL DO [facility] 06-10-2021 11:20-0400 Respiratory rate 19 /min IRMA JEWELL DO [facility] 06-10-2021 11:20-0400 Systolic Blood Pressure NBP 111 1 IRMA JEWELL DO [facility] 06-10-2021 11:15-0400 Heart rate 72 /min IRMA JEWELL DO [facility] 06-10-2021 11:15-0400 Respiratory rate 15 /min IRMA JEWELL DO [facility] 06-10-2021 11:10-0400 Diastolic Blood Pressure NBP 67 1 IRMA JEWELL DO [facility] 06-10-2021 11:10-0400 Heart rate 77 /min IRMA JEWELL DO [facility] 06-10-2021 11:10-0400 Respiratory rate 19 /min IRMA JEWELL DO [facility] 06-10-2021 11:10-0400 Systolic Blood Pressure NBP 95 1 IRMA JEWELL DO [facility] 06-10-2021 11:05-0400 Diastolic Blood Pressure NBP 69 1 IRMA JEWELL DO [facility] 06-10-2021 11:05-0400 Systolic Blood Pressure NBP 100 1 IRMA JEWELL DO [facility] 06-10-2021 10:55-0400 Body temperature 97.52 [degF] IRMA JEWELL DO [facility] 06-10-2021 08:16-0400 Body height 162.6 cm IRMA JEWELL DO [facility] 06-10-2021 08:16-0400 Body temperature 96.98 [degF] IRMA JEWELL DO [facility] 06-10-2021 08:16-0400 Body weight 132.1 kg IRAM JEWELL DO [facility] 06-10-2021 08:16-0400 Heart rate 79 /min IRMA JEWELL DO [facility] 06-09-2021 10:24-0400 Body height 162.6 cm IRMA JEWELL DO [facility] 06-09-2021 10:24-0400 Body weight 132.1 kg IRMA JEWELL DO [facility] 06-09-2021 10:24-0400 Body weight 49.96 kg/m2 IRMA JEWELL DO [facility] 06-09-2021 10:24-0400 diastolic 68 mm[Hg] IRMA JEWELL DO [facility] 06-09-2021 10:24-0400 Heart rate 73 /min IRMA JEWELL DO [facility] 06-09-2021 10:24-0400 Respiratory rate 22 /min IRMA JEWELL DO [facility] 06-09-2021 10:24-0400 systolic 140 mm[Hg] IRMA JEWELL DO [facility] Encounters Encounter Date Encounter Type Care Provider Facility Start: 03-05-2023 End: 03-05-2023 Emergency department patient visit ARAM JOHNSON Facility:B Start: 03-05-2023 End: 03-05-2023 Emergency department patient visit MICHELLE DICKSON MD [facility] Start: 03-04-2023 End: 03-04-2023 ambulatory ARAM JOHNSON Facility:[facility] Start: 02-28-2023 End: 02-28-2023 Emergency department patient visit LAURA RICHARDSON MD Facility:[facility] Start: 02-28-2023 End: 02-28-2023 Emergency department patient visit LAURA RICHARSDON MD [facility] Start: 02-27-2023 End: 02-27-2023 Emergency department patient visit ARAM MCCARTHYNGER Facility:[facility] Start: 02-27-2023 End: 02-27-2023 Emergency department patient visit ALEX TEMPLETON MD [facility] Start: 02-24-2023 End: 02-24-2023 Emergency department patient visit ARAM MCCARTHYNGER Facility:[facility] Start: 02-24-2023 End: 02-24-2023 Emergency department patient visit DR DEBBIE CHATMAN DO [facility] Start: 02-20-2023 End: 02-20-2023 Emergency department patient visit DR VAHE JENKINS MD Facility:[facility] Start: 02-17-2023 End: 02-17-2023 Emergency department patient visit ARAM MCCARTHYSAVI MORALEZ Facility:B Start: 02-17-2023 End: 02-17-2023 Emergency department patient visit DR DAQUAN MAI MD [facility] Start: 01-23-2023 End: 01-23-2023 Emergency department patient visit ARAM MCCARTHYNGER DO Facility:[facility] Start: 01-23-2023 End: 01-23-2023 Emergency department patient visit AUDRA PHILLIPS DO [facility] Start: 01-18-2023 End: 01-19-2023 ambulatory ARAM JOHNSON Facility:[facility] Start: 01-18-2023 End: 01-18-2023 Patient encounter procedure Satnam Rodriguez SAP BPC ARCHITECT.HOSPITAL COORDINATOR Work Phone: [facility] Procedures Date Procedure Procedure Detail Performing Clinician Start: 12-14-2022 Urnls dip stick/tabl et rgnt auto w/o microscopy Dion Escobar PA-C Work Phone: Start: 02-25-2022 COVID WITH FLUA+B, ROUTINE Ria Older SAP BPC ARCHITECT.HOSPITAL COORDINATOR Work Phone: Start: 09-28-2020 Cardiac catheterization IRMA JEWELL DO Plan of Treatment Date Care Activity Detail Author Start: 01-18-2026 Diabetes Screening Diabetes [facility] Start: 12-14-2025 Diabetes Screening Diabetes Screen[facility] Start: 12-14-2022 End: 03-15-2023 CBC W Auto Differential panel - Blood [facility] Work Phone: Payers Date Payer Category Payer Medicaid [id number] 2019 Medicaid MEDICAID [facility] MEDICAID [id number] 2019-Present [phone] [address] [place] [address] Medicaid [id number] 2019 Medicare [id number] 2019 Medicare [employer] MEDICARE [id number] 2019-Present [phone] [address] [place] [address] O [id number] 1970 Unknown [id number] [id number] 1970 Unknown [id number] 2.16.840.1.912009.3.579.2.7 1970 Unknown [id number] [id number] 1970 Unknown [id number] 2.16.840.1.020274.3.579.2. 1970 Unknown [id number] 2.16.840.1.361175.3.579.2.62 1970 Unknown [id number] 2.16.840.1.385867.3.579.2. 1970 Unknown [id number] 2.16.840.1.183705.3.579.2. 1970 Unknown [id number] 2.16.840.1.466235.3.579.2. 1970 Unknown [id number] 2.16.840.1.441411.3.579.2.62 1970 Unknown [id number] 2.16.840.1.673418.3.579.2. 1970 Unknown [id number] 2.16.840.1.961028.3.579.2. 1970 Unknown [id number] 2.16.840.1.032291.3.579.2. 1970 Unknown [id number] [id number] 1970 Unknown [id number] [id number] Social History Date Type Detail Facility Start: 11-25-2018 End: 04-23-2020 Tobacco smoking status NHIS Never smoker [employer] Work Phone: Start: 10-19-2010 End: 04-23-2020 Tobacco use and exposure Never used [employer] Work Phone: Start: 04-23-2020 Alcohol intake Lifetime non-d ambar (finding) [employer] Work Phone: Start: 04-23-2020 History SDOH Alcohol Frequency 1 [employer] Phone: Start: 1970 Sex Assigned At Not on file [employer] Work Phone: Sex Assigned At Female [facility] Start: 10-17-2021 End: 01-18-2023 Alcohol intake Current non-drinker of alcohol (finding) [facility] Start: 11-03-2021 End: 11-13-2021 Exposure to SARS-CoV-2 (event) Not sure [facility] Start: 11-16-2022 End: 01-18-2023 History of Social function [facility] Start: 11-16-2022 End: 01-18-2023 Tobacco use panel [facility] Functional Status Date Assessment Result Facility 03-05-2023 Functional Status Independent [facility] 03-05-2023 Functional Status ID band on [facility] 02-28-2023 Functional Status Up ad javed [facility] 02-28-2023 Functional Status Standard Safet y ID band on, Allergy Band on, Call device within reach, Bed in low position, Wheels locked, Bedside Cart Locked, Safety level maintained [facility] 02-27-2023 Functional Status Assistive Device None [facility] 02-27-2023 Functional Status Standard Safet y ID band on, Allergy Band on, Call device within reach, Bed in low position, Wheels locked, Bedside Cart Locked, Visitor at bedside [facility] 02-24-2023 Functional Status Identified as high risk, Fall ID band on [facility] 02-17-2023 [facility] Status ID band on Johny Francisco [facility] 01-23-2023 Functional Status Assistive Device None [facility] 01-23-2023 Functional Status Standard Safety ID band on [facility] 01-10-2023 Functional Status Room check performed [facility] 01-10-2023 Functional Status Johny Singh [facility] 01-10-2023 Functional Status Johny Singh [facility] 12-25-2022 Functional Status Standard Safet y ID band on, Call device within reach, Bed in low position, Wheels locked [facility] 12-24-2022 [facility] Functional Status Johny [facility] 10-03-2022 Functional Status Independent Johny Singh [facility] 09-23-2022 Functional Status Activity Mago tance Independent [facility] 08-13-2022 Functional Status Assistive Device Crutch es [facility] 12-20-2021 Functional Status Independent Johny Singh [facility] 06-10-2021 Functional Status Johny Singh [facility] 06-10-2021 Functional Status Johny Singh [facility] 06-09-2021 Functional Status Johny Singh [facility] Mental Status Date Assessment Result Facility 03-05-2023 Mental Status Orientation Oriented x 4 [facility] 03-05-2023 Mental Status [facility] 02-28-2023 Mental Status Orientation Oriented x 4 [facility] 02-27-2023 Mental Status Orientation Oriented x 4 [facility] 02-27-2023 Mental Status [facility] 02-24-2023 Mental Status Oriented x 4 [facility] 02-17-2023 Mental Status Orientation Oriented x 4 [facility] 01-23-2023 Mental Status Orientation Oriented x 4 [facility] 01-23-2023 Mental Status [facility] 01-10-2023 Mental Status Orientation Oriented x 4 [facility] 01-10-2023 Mental Status [facility] 12-24-2022 Mental Status Orientation Oriented x 4 [facility] 10-03-2022 Mental Status Orientation Oriented x 4 [facility] 09-23-2022 Mental Status Orientation Oriented x 4 [facility] 09-23-2022 Mental Status [facility] 08-13-2022 Mental Status Oriented x 4 [facility] 12-20-2021 Mental Status Orientation Oriented x 4 [facility] 06-10-2021 Mental Status [facility] 06-10-2021 Mental Status [facility] Clinical Notes 06-10-2021 to 03-05-2023 Addendum Note - Satnam Rodriguez APRN.[facility] - 01/18/2023 10:48 AM ESTPatient InstructionsSatnam Rodriguez APRN.HOSPITAL COORDINATOR - 01/18/2023 7:42 AM ESTPatient InstructionsPatient InstructionsLaboratoryLaboratory Note Date & Type Note Facility 03-05-2023 Hospital Discharge instructions Patient Education 03/05/2023 12:20:16 Cellulitis Skin Infection Cellulitis Cellulitis is an [...] or higher after 2 days on antibiotics [id number] [employer]. [address] [place] [address]. All rights reserved. This information is not intended as a substitute for professional medical care. Always follow your healthcare professional's instructions. Follow Up Care 03/05/2023 09:32:15 With:ARAM JOHNSON DO Address: [address] [place] [phone] When:2-4 days [facility] 03-05-2023 Emergency department Discharge summary Discharge Instructions Thank you for allowing [facility] to assist you with your healthcare needs. The following is important discharge information regarding your hospital visit. Diagnosis from Today's Visit Lower leg pain-swelling What to Do Next Instructions from Your Care Team No qualifying data available. Post Acute Orders No qualifying data available. You Need to Schedule the Following Appointments Follow Up with ARAM JOHNSON DO When Within 2-4 days Where: [address] [place] [address]- [phone] Allergies Naprosyn (Nausea) aspirin (NAUSEA) Medications Please ask your primary doctor or pharmacist before taking any other medication not listed, including over the counter drugs, herbal medications, vitamins and or supplements as they may interact with your home medications. What How Much When Why Instructions Last Dose Changed cephalexin (cephalexin 500 mg oral capsule) 1 cap by mouth Every 12 hours Printed Prescription Changed cephalexin (Keflex use cephalexin ) 500 Milligram by mouth Two (2) times a day Duration: 10 Days Unchanged acetaminophen (acetaminophen 325 mg oral capsule) 2 cap by mouth Every 4 hours as needed for for pain Duration: 10 Days Unchanged acetaminophen (Tylenol Extra Strength 500 mg oral tablet) 3 tab by mouth Every 6 hours as needed for as needed for pain Unchanged acetaminophen-hydrocodone (Lester 325- 5 mg oral tablet) 1 tab(s) [...] Once a day Duration: 30 Days Unchanged loperamide (Imodium A-D 2 mg oral tablet) 1 tab(s) by mouth Every 4 hours as needed for for loose stools Duration: 7 Days Unchanged megestrol (megestrol 40 mg oral tablet) 1 tab(s) by mouth Every day Vaginal bleeding Duration: 90 Days Managed by OB-TILE PRESSER Unchanged nortriptyline (nortriptyline 50 mg oral capsule) [...] may report side effects to FDA at 4-197-JMP-9105. What other drugs will affect cephalexin? Tell your doctor about all your other medicines, especially: metformin; or probenecid. This list is not complete. Other drugs may affect cephalexin, including prescription and iojj-sgi-ambviky medicines, vitamins, and herbal products. Not all [...] to ensure that the information provided by [employer]. ('[employer]') is accurate, up-to-date, and complete, but no guarantee is made to that effect. Drug information contained herein may be time sensitive. [employer] information has been compiled for use by healthcare practitioners and consumers in the [place] and therefore [employer] does not warrant that uses outside of the [place] are appropriate, unless specifically indicated otherwise. [employer] drug information does not endorse drugs, diagnose patients or recommend therapy. [employer] drug information is an informational resource designed [...] effective or appropriate for any given patient. [employer] does not assume any responsibility for any aspect of healthcare administered with the aid of information [employer] provides. The information contained herein is not intended to cover all possible uses, directions, precautions, warnings, drug interactions, allergic reactions, or adverse effects. If you have questions about the drugs you are taking, check with your doctor, nurse or pharmacist. Copyright 9582-6864 [employer]. Version: 12.. Revision Date: 09/29/2022. Education Materials [...] or higher after 2 days on antibiotics 3306-6088 [employer]. [address] [place] [address], [place] [address]. All rights reserved. This information is not intended as a substitute for professional medical care. Always follow your healthcare professional's instructions. Additional Information VACCINATE! IT SAVES LIVES! Members of the community who have not yet received the COVID-19 vaccine and would like to receive it can visit one of [facility] vaccine clinics. There are many vaccine clinic locations within the [facility]. For locations and available times, please visit [email or web address] It is important to note that some COVID mobile vaccine clinics are held outdoors and may be canceled in rainy or stormy conditions. To learn more about pediatric vaccinations (ages 5-11), we invite you to visit the [employer] webpage. [email or web address] [email or web address] To learn more about the COVID-19 vaccine, we invite you to visit the CDC website for a list of frequently asked questions. https://www.cdc.gov/coronavirus/2 019-ncov/vaccines/faq.html [facility] [employer] Patient Portal Access Instructions: Stay connected with your healthcare team and access your personal medical information anytime with the [facility] Patient Portal. If you would like a full copy of your medical records please contact the [facility] Medical Records Department Tuesday through Tuesday between 8a.m. and 4:30p.m. Please follow the directions below to access the portal: 1.Access the email account you provided upon registration to the hospital.2.Look for an invitation email from [facility].3.Open the email and access the invitation link: Accept Invitation to [facility]4.Fill in the required lee to create your account. Sign into [email or web address] with your username and password that you [...] you will allow to register on the [employer] Patient Portal for access to your information. You can also access the [employer] Patient Portal on the [employer] leigh. Simply click on Health Records under Health [...] Call your local pharmacy or go to [email or web address] to find one close to you.3.Make use of household items: Use cat litter or old coffee grounds to dispose medications if other options are not available. Mix your drugs with these household products, seal them in an airtight container and throw it into the garbage. Call [facility]: [phone] to be sure your drugs can be [...] aware that I should contact my doctor. 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 Author Type: Nurse Practitioner Type: Progress Notes Filed: 03/04/2023 09:25 Note Text: This note was created using NoteWriter. Subjective Kamala Gray is a 52 year old female. 52 year old female with PMH hypothyroid presents for abdominal pain. Acute onset 2 days ago +bilateral lower abdominal pain. Progressively worsening. The history is provided by the patient. Abdominal Pain Laceration Review of Systems Gastrointestinal: Positive for abdominal pain. Objective BP 148/95 Pulse 97 Temp 36.9 ?C (98.4 ?F) Resp 20 Wt 133.4 kg (294 lb) LMP (LMP Unknown) SpO2 99% Physical Exam Abdominal: Tenderness: There is abdominal tenderness (bilateral lower abdominal pain). Assessment and Plan ASSESSMENT/PLAN: 1. Lower abdominal pain - ICD9: 789.09, ICD10: R10.30 X 2 days Progressively worsening. +TTP Discussed with patient concerns for possible intraabdominal process Referred to ED for CT and further management Tracee Chakraborty APRN.HOSPITAL COORDINATOR [facility] 02-28-2023 Hospital Discharge instructions Patient Education 02/28/2023 [...] you feel better and your symptoms ease. 0733-6581 [employer]. [address] [place] [address]. All rights reserved. This information is not intended as a substitute for professional medical care. Always follow your healthcare professional's instructions. Follow Up Care 02/28/2023 12:09:26 With:ARAM JOHNSON DO Address: [address] [place] [address]- [phone] When:2-4 days [facility] 02-28-2023 Note Discharge Instructions Thank you for allowing [facility] to assist you with your healthcare needs. [...] DO When Within 2-4 days Where: [address] [place] [address]- [phone] Allergies Naprosyn (Nausea) aspirin (NAUSEA) Medications Please [...] for as needed for pain Unchanged acetaminophen-hydrocodone (Lester 325- 5 mg oral tablet) 1 tab(s) [...] Vaginal bleeding Duration: 90 Days Managed by OB-TILE PRESSER Unchanged nortriptyline (nortriptyline 50 mg oral capsule) [...] acetaminophen (oral) (a SEET a MIN oh fen) Anacin AF, Children's Tylenol, Mapap, M-Pap, Pharbetol, [...] may report side effects to FDA at 1-402-FDQ-7132. What other drugs will affect acetaminophen? Other drugs may affect acetaminophen, including prescription and zsjk-hhp-ypsumwy medicines, vitamins, and herbal products. Tell your [...] to ensure that the information provided by [employer]. ('[employer]') is accurate, up-to-date, and complete, but no guarantee is made to that effect. Drug information contained herein may be time sensitive. [employer] information has been compiled for use by healthcare practitioners and consumers in the [place] and therefore [employer] does not warrant that uses outside of the [place] are appropriate, unless specifically indicated otherwise. [employer] drug information does not endorse drugs, diagnose patients or recommend therapy. [employer] drug information is an informational resource designed [...] effective or appropriate for any given patient. [employer] does not assume any responsibility for any aspect of healthcare administered with the aid of information [employer] provides. The information contained herein is not intended to cover all possible uses, directions, precautions, warnings, drug interactions, allergic reactions, or adverse effects. If you have questions about the drugs you are taking, check with your doctor, nurse or pharmacist. Copyright 1170-3715 [employer]. Version: 25.. Revision Date: 09/27/2022. loperamide (maria [...] may report side effects to FDA at 5-336-JEX-1996. What other drugs will affect loperamide? Sometimes [...] can affect loperamide. This includes prescription and qofd-dtd-xskmwqt medicines, vitamins, and herbal products. Not all [...] to ensure that the information provided by [employer]. ('Mult[employer]') is accurate, up-to-date, and complete, but no guarantee is made to that effect. Drug information contained herein may be time sensitive. [employer] information has been compiled for use by healthcare practitioners and consumers in the [place] and therefore [employer] does not warrant that uses outside of the [place] are appropriate, unless specifically indicated otherwise. [employer] drug information does not endorse drugs, diagnose patients or recommend therapy. [employer] drug information is an informational resource designed [...] effective or appropriate for any given patient. [employer] does not assume any responsibility for any aspect of healthcare administered with the aid of information [employer] provides. The information contained herein is not intended to cover all possible uses, directions, precautions, warnings, drug interactions, allergic reactions, or adverse effects. If you have questions about the drugs you are taking, check with your doctor, nurse or pharmacist. Copyright [employer]. Version: 12.30. Revision Date: 11/17/2022. Education Materials [...] you feel better and your symptoms ease. 5100-1919 [employer]. [address] [place] [address], [place] [address]. All rights reserved. This information is not intended as a substitute for professional medical care. Always follow your healthcare professional's instructions. Additional Information VACCINATE! IT SAVES LIVES! Members of the community who have not yet received the COVID-19 vaccine and would like to receive it can visit one of [facility] vaccine clinics. There are many vaccine clinic locations within the [facility]. For locations and available times, please visit www.[email or web address].[place].g ov/. It is important to note that some COVID mobile vaccine clinics are held outdoors and may be canceled in rainy or stormy conditions. To learn more about pediatric vaccinations (ages 5-11), we invite you to visit the [facility] webpage. https://www.Crowd[employer]ers.org/pa ges/8890-Psjtp-Ktsmnyqhiio-Freque onvt-Jramj-Fsmpmdedb.html To learn more about the COVID-19 vaccine, we invite you to visit the CDC website for a list of frequently asked questions. https://www.cdc.gov/coronavirus/2 019-ncov/vaccines/faq.html [facility] Patient Portal Access Instructions: Stay connected with your healthcare team and access your personal medical information anytime with the [facility] Patient Portal. If you would like a full copy of your medical records please contact the [facility] Medical Records Department Tuesday through Tuesday between 8a.m. and 4:30p.m. Please follow the directions below to access the portal: 1.Access the email account you provided upon registration to the hospital.2.Look for an invitation email from [facility].3.Open the email and access the invitation link: Accept Invitation to [facility]4.Fill in the required lee to create your account. Sign into [email or web address] with your username and password that you [...] you will allow to register on the [facility] Patient Portal for access to your information. You can also access the [employer] Patient Portal on the [employer] leigh. Simply click on Health Records under Health Data and then click on the [employer] logo. HOW TO SAFELY DISPOSE OF PRESCRIPTION [...] Call your local pharmacy or go to [email or web address] to find one close to you.3.Make use of household items: Use cat litter or old coffee grounds to dispose medications if other options are not available. Mix your drugs with these household products, seal them in an airtight container and throw it into the garbage. Call [facility]: [phone] to be sure your drugs can be [...] been reviewed and explained to me and INELLA APRIL L understand my current condition and have read and understand these discharge instructions. I have received a written copy of the plan/instructions. If I have questions, I am aware that I should contact my doctor. 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: Date/Time: Relationship to Patient: ____ Witness Name/Signature: Date/Time: [facility] 02-27-2023 Hospital Discharge instructions Patient Education 02/27/2023 06:24:39 Dizziness, Uncertain Cause Dizziness (Uncertain Cause) Dizziness is a common symptom. It may be described as lightheadedness, spinning, or feeling like you are going to faint. Dizziness can have many causes. Be sure to tell the healthcare provider about: All medicines you take, including prescription, hnzz-jak-ffisdtr, herbs, and supplements Any other symptoms you [...] Chest, arm, neck, back, or jaw pain 6521-3707 [employer]. [address] [place] [address], [place] [address]. All rights reserved. This information is not intended as a substitute for professional medical care. Always follow your healthcare professional's instructions. Follow Up Care 02/27/2023 05:53:35 With:ARAM JOHNSON DO Address: [address] [place] [phone]- [phone] When:2-4 days [facility] 02-27-2023 Note Discharge Instructions Thank you for allowing [facility] to assist you with your healthcare needs. The following is important discharge information regarding your hospital visit. Diagnosis from Today's Visit Dizziness Medication overdose What to Do Next Instructions from Your Care Team No qualifying data available. Post Acute Orders No qualifying data available. You Need to Schedule the Following Appointments Follow Up with ARAM JOHNSON DO When Within 2-4 days Where: [address] [place] [phone] Allergies Naprosyn (Nausea) aspirin (NAUSEA) Medications Please [...] for as needed for pain Unchanged acetaminophen-hydrocodone (Lester 325- 5 mg oral tablet) 1 tab(s) [...] Vaginal bleeding Duration: 90 Days Managed by OB-TILE PRESSER Unchanged nortriptyline (nortriptyline 50 mg oral capsule) [...] about: All medicines you take, including prescription, dsrb-vss-tcfghgy, herbs, and supplements Any other symptoms you [...] Chest, arm, neck, back, or jaw pain 5636-1029 [employer]. [address] [place] [address]. All rights reserved. This information is not intended as a substitute for professional medical care. Always follow your healthcare professional's instructions. Additional Information VACCINATE! IT SAVES LIVES! Members of the community who have not yet received the COVID-19 vaccine and would like to receive it can visit one of [facility] vaccine clinics. There are many vaccine clinic locations within the [facility]. For locations and available times, please visit www.gettheshot.coronavirus.[place].g ov/. It is important to note that some COVID mobile vaccine clinics are held outdoors and may be canceled in rainy or stormy conditions. To learn more about pediatric vaccinations (ages 5-11), we invite you to visit the [facility] webpage. https://www.[facility].org/pa ges/6674-Jrvii-Diotwyyttwx-Freque vgjl-Xhaes-Zwejnjluu.html To learn more about the COVID-19 vaccine, we invite you to visit the CDC website for a list of frequently asked questions. https://www.cdc.gov/coronavirus/2 019-ncov/vaccines/faq.html [facility] Patient Portal Access Instructions: Stay connected with your healthcare team and access your personal medical information anytime with the [facility] Patient Portal. If you would like a full copy of your medical records please contact the [facility] Medical Records Department Tuesday through Tuesday between 8a.m. and 4:30p.m. Please follow the directions below to access the portal: 1.Access the email account you provided upon registration to the [facility].2.Look for an invitation email from [facility].3.Open the email and access the invitation link: Accept Invitation to [facility]4.Fill in the required lee to create your [...] will allow to register on the [facility] Patient Portal for access to your information. You can also access the [facility] Patient Portal on the [employer]. Simply click on Health Records under Health [...] Call your local pharmacy or go to [email or web address] to find one close to you.3.Make use of household items: Use cat litter or old coffee grounds to dispose medications if other options are not available. Mix your drugs with these household products, seal them in an airtight container and throw it into the garbage. Call [facility]: [phone] to be sure your drugs can be [...] aware that I should contact my doctor. 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: Date/Time: Relationship to Patient: ____ Witness Name/Signature: Date/Time: [facility] 02-24-2023 Hospital Discharge instructions Patient [...] or higher after 2 days on antibiotics 5491-5894 [employer]. [address] [place] [address]. All rights reserved. This information is not intended as a substitute for professional medical care. Always follow your healthcare professional's instructions. Follow Up Care 02/24/2023 16:26:27 With:ARAM JOHNSON DO Address: [address] [place] [address]- [phone] When:2-4 days [facility] 02-24-2023 Note Discharge Instructions Thank you for allowing [facility] to assist you with your healthcare needs. [...] DO When Within 2-4 days Where: [address] [place] [address] [phone] Allergies Naprosyn (Nausea) aspirin (NAUSEA) Medications Please [...] for as needed for pain Unchanged acetaminophen-hydrocodone (Lester 325- 5 mg oral tablet) 1 tab(s) [...] Vaginal bleeding Duration: 90 Days Managed by OB-TILE PRESSER Unchanged nortriptyline (nortriptyline 50 mg oral capsule) [...] may report side effects to FDA at 0-522-UJO-7323. What other drugs will affect cephalexin? Tell your doctor about all your other medicines, especially: metformin; or probenecid. This list is not complete. Other drugs may affect cephalexin, including prescription and euar-fky-lpugjmu medicines, vitamins, and herbal products. Not all [...] to ensure that the information provided by [employer]. ('[employer]') is accurate, up-to-date, and complete, but no guarantee is made to that effect. Drug information contained herein may be time sensitive. [employer] information has been compiled for use by healthcare practitioners and consumers in the [place] and therefore [employer] does not warrant that uses outside of the [place] are appropriate, unless specifically indicated otherwise. [employer] drug information does not endorse drugs, diagnose patients or recommend therapy. [employer] drug information is an informational resource designed [...] effective or appropriate for any given patient. [employer] does not assume any responsibility for any aspect of healthcare administered with the aid of information [employer] provides. The information contained herein is not intended to cover all possible uses, directions, precautions, warnings, drug interactions, allergic reactions, or adverse effects. If you have questions about the drugs you are taking, check with your doctor, nurse or pharmacist. Copyright 1873-0778 [employer]. Version: 12.. Revision Date: 09/29/2022. Education Materials [...] or higher after 2 days on antibiotics 6746-1869 [employer]. [address] [place] [address], [place] [address]. All rights reserved. This information is not intended as a substitute for professional medical care. Always follow your healthcare professional's instructions. Additional Information VACCINATE! IT SAVES LIVES! Members of the community who have not yet received the COVID-19 vaccine and would like to receive it can visit one of [facility] vaccine clinics. There are many vaccine clinic locations within the [facility]. For locations and available times, please visit www.gettheshot.coronavirus.[place].g ov/. It is important to note that some COVID mobile vaccine clinics are held outdoors and may be canceled in rainy or stormy conditions. To learn more about pediatric vaccinations (ages 5-11), we invite you to visit the [facility] webpage. https://www.[facility].org/pa ges/9831-Amtag-Sgvmhmdungi-Freque egii-Lqkav-Orvoorgse.html To learn more about the COVID-19 vaccine, we invite you to visit the CDC website for a list of frequently asked questions. https://www.cdc.gov/coronavirus/2 019-ncov/vaccines/faq.html [facility] Patient Portal Access Instructions: Stay connected with your healthcare team and access your personal medical information anytime with the [facility] Patient Portal. If you would like a full copy of your medical records please contact the [facility] Medical Records Department Tuesday through Tuesday between 8a.m. and 4:30p.m. Please follow the directions below to access the portal: 1.Access the email account you provided upon registration to the hospital.2.Look for an invitation email from [facility].3.Open the email and access the invitation link: Accept Invitation to [facility]4.Fill in the required lee to create your account. Sign into [email or web address] with your username and password that you [...] you will allow to register on the [facility] Patient Portal for access to your information. You can also access the [employer] [facility] Patient Portal on the [employer] leigh. Simply click on Health Records under Health Data and then click on the [employer] logo. HOW TO SAFELY DISPOSE OF PRESCRIPTION [...] Call your local pharmacy or go to [email or web address] to find one close to you.3.Make use of household items: Use cat litter or old coffee grounds to dispose medications if other options are not available. Mix your drugs with these household products, seal them in an airtight container and throw it into the garbage. Call [facility]: [phone] to be sure your drugs can be [...] aware that I should contact my doctor. 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: Date/Time: Relationship to Patient: ____ Witness Name/Signature: Date/Time: [facility] 02-17-2023 Hospital Discharge instructions Patient [...] the ears or bruising around the eyes 2241-5955 [employer]. [address] [place] [address]. All rights reserved. This information is not intended as a substitute for professional medical care. Always follow your healthcare professional's instructions. Follow Up Care 02/17/2023 07:23:32 With:ARAM JOHNSON DO Address: [address] [place] [phone]- [phone] When:2-4 days [facility] 02-17-2023 Emergency department Discharge summary Discharge Instructions Thank you for allowing [facility] to assist you with your healthcare needs. [...] JOHNSON DO When Within 2-4 days Where: [address] [place] [phone] Allergies Naprosyn (Nausea) aspirin (NAUSEA) Medications Please ask your primary doctor or pharmacist before taking any other medication not listed, including over the counter drugs, herbal medications, vitamins and or supplements as they may interact with your home medications. What How Much When Why Instructions Last Dose New acetaminophen-hydrocodone (Lester 325- 5 mg oral tablet) 1 tab(s) [...] Vaginal bleeding Duration: 90 Days Managed by OB-TILE PRESSER Unchanged nortriptyline (nortriptyline 50 mg oral capsule) [...] SEET a MIN [place] fen and alfonzo sera KOJanine done) Lortab Elixir, Verdrocet What is the [...] may report side effects to FDA at 0-607-QCK-2054. What other drugs will affect acetaminophen and [...] affect acetaminophen and hydrocodone, including prescription and wsfa-bvw-tvqgvwc medicines, vitamins, and herbal products. Not all [...] to ensure that the information provided by [employer]. ('[employer]') is accurate, up-to-date, and complete, but no guarantee is made to that effect. Drug information contained herein may be time sensitive. [employer] information has been compiled for use by healthcare practitioners and consumers in the [place] and therefore [employer] does not warrant that uses outside of the [place] are appropriate, unless specifically indicated otherwise. [employer] drug information does not endorse drugs, diagnose patients or recommend therapy. [employer] drug information is an informational resource designed [...] effective or appropriate for any given patient. [employer] does not assume any responsibility for any aspect of healthcare administered with the aid of information [employer] provides. The information contained herein is not intended to cover all possible uses, directions, precautions, warnings, drug interactions, allergic reactions, or adverse effects. If you have questions about the drugs you are taking, check with your doctor, nurse or pharmacist. Copyright 4572-7821 [employer]. Version: 19.. Revision Date: 10/18/2022. ondansetron (oral) [...] To use ondansetron oral soluble film (strip) (Zrupeshz): Keep the strip in the foil pouch [...] may report side effects to FDA at 2-093-CKP-8568. What other drugs will affect ondansetron? Ondansetron [...] interact with ondansetron. This includes prescription and luwu-ssm-rexeenq medicines, vitamins, and herbal products. Give a [...] to ensure that the information provided by [employer]. ('[employer]') is accurate, up-to-date, and complete, but no guarantee is made to that effect. Drug information contained herein may be time sensitive. [employer] information has been compiled for use by healthcare practitioners and consumers in the [place] and therefore [employer] does not warrant that uses outside of the [place] are appropriate, unless specifically indicated otherwise. [employer]'s drug information does not endorse drugs, diagnose patients or recommend therapy. [employer] drug information is an informational resource designed [...] effective or appropriate for any given patient. [employer] does not assume any responsibility for any aspect of healthcare administered with the aid of information [employer] provides. The information contained herein is not intended to cover all possible uses, directions, precautions, warnings, drug interactions, allergic reactions, or adverse effects. If you have questions about the drugs you are taking, check with your doctor, nurse or pharmacist. Copyright 7223-9090 [employer]. Version: 16.. Revision Date: 09/30/2022. Education Materials [...] the ears or bruising around the eyes 5025-7457 [employer]. [address] [place] [address]. All rights reserved. This information is not intended as a substitute for professional medical care. Always follow your healthcare professional's instructions. Additional Information VACCINATE! IT SAVES LIVES! Members of the community who have not yet received the COVID-19 vaccine and would like to receive it can visit one of [facility] vaccine clinics. There are many vaccine clinic locations within the [facility]. For locations and available times, please visit www.[email or web address].[place].g ov/. It is important to note that some COVID mobile vaccine clinics are held outdoors and may be canceled in rainy or stormy conditions. To learn more about pediatric vaccinations (ages 5-11), we invite you to visit the [facility] webpage. https://www.C[employer].org/pa ges/4896-Emqtr-Kvablndtsit-Freque gdgy-Qphwp-Xfibdfran.html To learn more about the COVID-19 vaccine, we invite you to visit the CDC website for a list of frequently asked questions. https://www.cdc.gov/coronavirus/2 019-ncov/vaccines/faq.html [facility] Patient Portal Access Instructions: Stay connected with your healthcare team and access your personal medical information anytime with the [facility] Patient Portal. If you would like a full copy of your medical records please contact the [facility] Medical Records Department Tuesday through Tuesday between 8a.m. and 4:30p.m. Please follow the directions below to access the portal: 1.Access the email account you provided upon registration to the [facility].2.Look for an invitation email from [facility].3.Open the email and access the invitation link: Accept Invitation to [facility]4.Fill in the required lee to create your account. Sign into [email or web address] with your username and password that you [...] you will allow to register on the [employer] Patient Portal for access to your information. You can also access the [employer] [facility] Patient Portal on the [employer]. Simply click on Health Records under Health Data and then click on the [employer] logo. HOW TO SAFELY DISPOSE OF PRESCRIPTION [...] Call your local pharmacy or go to [email or web address] to find one close to you.3.Make use of household items: Use cat litter or old coffee grounds to dispose medications if other options are not available. Mix your drugs with these household products, seal them in an airtight container and throw it into the garbage. Call [facility]: [phone] to be sure your drugs can be [...] aware that I should contact my doctor. 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: Date/Time: Relationship to Patient: ____ Witness Name/Signature: Date/Time: [facility] 02-17-2023 Note ORIGINAL EXAMINATION: CT [...] Sign Date: 02/17/2023 9:26:46 AM Ordering Provider: [facility] 01-27-2023 Note . MICRO - [...] Locations *1: This test was performed at: [facility], [address] [place] [address], [facility] , [facility] ([place]) 01-23-2023 Hospital Discharge instructions Patient Education 01/23/2023 12:17:26 AA Dara LOFTON (CUSTOM) Result type:CT Abd/Pelvis w/ IV Contrast Only Result date:January 23, 2023 11:34 EST Result status:Auth (Verified) Result title:CT ABD/PELVIS W/ IV CONTRAST ONLY Performed by:ORLIN TRUJILLO MD on January 23, 2023 11:08 EST Cosigned by:ORLIN TRUJILLO MD Verified by:ORLIN TRUJILLO MD on January 23, 2023 11:34 EST Encounter info:[id number], [facility], Emergency, 01/23/2023 - Contributor system:[employer] * Final Report * [id number] ORIGINAL EXAMINATION: CT OF THE ABDOMEN AND [...] Document Reviewed: 02/15/2014 [employer]Care Patient Information 2015 [employer] [facility]. This information is not intended to replace [...] or as directed by your healthcare provider [phone] [employer]. [address] [place] [address]. All rights reserved. This information is not [...] foods again, start with small amounts of kgjg-mi-ewgjqz, low-fat foods. These include apple sauce, toast, [...] increase stomach acid. Don't use aspirin or xjoj-cug-gvigtys pain and fever medicines, if possible. This includes nonsteroidal anti-inflammatory drugs (NSAIDs). Lose excess weight. Finish eating at least 2 hours before you go to bed or lie down. Raise the head of your bed. [phone] [employer]. [address] [place] [address], [place] [address]. All rights reserved. This information is not intended as a substitute for professional medical care. Always follow your healthcare professional's instructions. Follow Up Care 01/23/2023 09:05:26 With:Go to emergency room if symptoms worsen Address:Unknown When:2-4 days With:ARAM JOHNSON DO Address: [address] [place] [phone] [phone] When:2-4 days [facility] 01-23-2023 Emergency department Discharge summary Discharge Instructions Thank you for allowing [facility] to assist you with your healthcare needs. [...] JOHNSON DO When Within 2-4 days Where: [facility] [place] [address]- [phone] Allergies Naprosyn (Nausea) aspirin (NAUSEA) Medications Please [...] Vaginal bleeding Duration: 90 Days Managed by OB-TILE PRESSER Unchanged nortriptyline (nortriptyline 50 mg oral capsule) [...] may report side effects to FDA at [phone]-[phone]. What other drugs will affect cephalexin? Tell your doctor about all your other medicines, especially: metformin; or probenecid. This list is not complete. Other drugs may affect cephalexin, including prescription and olnv-lva-guuvstn medicines, vitamins, and herbal products. Not all [...] to ensure that the information provided by [employer]. ('[employer]') is accurate, up-to-date, and complete, but no guarantee is made to that effect. Drug information contained herein may be time sensitive. [employer] information has been compiled for use by healthcare practitioners and consumers in the [place] and therefore [employer] does not warrant that uses outside of the [place] are appropriate, unless specifically indicated otherwise. [employer] drug information does not endorse drugs, diagnose patients or recommend therapy. [employer] drug information is an informational resource designed [...] effective or appropriate for any given patient. [facility] does not assume any responsibility for any aspect of healthcare administered with the aid of information [facility] provides. The information contained herein is not intended to cover all possible uses, directions, precautions, warnings, drug interactions, allergic reactions, or adverse effects. If you have questions about the drugs you are taking, check with your doctor, nurse or pharmacist. Copyright 4522-3272 [employer]. Version: 12.. Revision Date: 09/29/2022. Education Materials Result type: CT Abd/Pelvis w/ IV Contrast Only Result date: January 23, 2023 11:34 EST Result status: Auth (Verified) Result title: CT ABD/PELVIS W/ IV CONTRAST ONLY Performed by: ORLIN TRUJILLO MD on January 23, 2023 11:08 EST Cosigned by: ORLIN TRUJILLO MD Verified by: ORLIN TRUJILLO MD on January 23, 2023 11:34 EST Encounter info: [id number], [facility], Emergency, 01/23/2023 - Contributor system: [employer] * Final Report * [id number] ORIGINAL EXAMINATION: CT OF THE ABDOMEN AND [...] 02/14/2006 Document Revised: 01/31/2013 Document Reviewed: 02/15/2014 [facility] Patient Information 2015 [facility]. This information is not intended to replace [...] or as directed by your healthcare provider [phone] [employer]. [address] [place] [address], [place] [address]. All rights reserved. This information is not [...] foods again, start with small amounts of ocxf-et-ncdcrr, low-fat foods. These include apple sauce, toast, [...] increase stomach acid. Don't use aspirin or oamr-qnv-vdfgqqf pain and fever medicines, if possible. This includes nonsteroidal anti-inflammatory drugs (NSAIDs). Lose excess weight. Finish eating at least 2 hours before you go to bed or lie down. Raise the head of your bed. 3737-0413 [employer]. [address] [place] [address], [place] [address]. All rights reserved. This information is not intended as a substitute for professional medical care. Always follow your healthcare professional's instructions. Additional Information VACCINATE! IT SAVES LIVES! Members of the community who have not yet received the COVID-19 vaccine and would like to receive it can visit one of [facility] vaccine clinics. There are many vaccine clinic locations within the [facility]. For locations and available times, please visit www.gettheshot.coronavirus.[place].g ov/. It is important to note that some COVID mobile vaccine clinics are held outdoors and may be canceled in rainy or stormy conditions. To learn more about pediatric vaccinations (ages 5-11), we invite you to visit the [employer] webpage. https://www.Crowdboosters.org/pa ges/2576-Wezae-Idplvcchfpf-Freque hgkl-Egage-Thagfpsbk.html To learn more about the COVID-19 vaccine, we invite you to visit the CDC website for a list of frequently asked questions. https://www.cdc.gov/coronavirus/2 019-ncov/vaccines/faq.html [facility] Patient Portal Access Instructions: Stay connected with your healthcare team and access your personal medical information anytime with the [employer] Patient Portal. If you would like a full copy of your medical records please contact the [facility] Medical Records Department Tuesday through Tuesday between 8a.m. and 4:30p.m. Please follow the directions below to access the portal: 1.Access the email account you provided upon registration to the hospital.2.Look for an invitation email from [facility].3.Open the email and access the invitation link: Accept Invitation to [facility]4.Fill in the required lee to create your account. Sign into [email or web address] with your username and password that you [...] you will allow to register on the [facility] Patient Portal for access to your information. You can also access the [employer] Patient Portal on the [employer]. Simply click on Health Records under Health Data and then click on the [employer] logo. HOW TO SAFELY DISPOSE OF PRESCRIPTION [...] Call your local pharmacy or go to [email or web address] to find one close to you.3.Make use of household items: Use cat litter or old coffee grounds to dispose medications if other options are not available. Mix your drugs with these household products, seal them in an airtight container and throw it into the garbage. Call [facility]: [phone] to be sure your drugs can be [...] aware that I should contact my doctor. 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: Date/Time: Relationship to Patient: ____ Witness Name/Signature: Date/Time: [facility] 01-23-2023 Note ORIGINAL EXAMINATION: XR [...] Date: 01/23/2023 12:06:18 PM [facility] Note ORIGINAL EXAMINATION: CT OF [...] Date: 01/23/2023 12:02:52 PM Ordering Provider: AUDRA [facility] 01-18-2023 Miscellaneous Notes Addended by: SATNAM RODRIGUEZ on: 01/18/2023 10:48 AM Modules accepted: Orders documented in this encounter [facility] 01-18-2023 Note HNO ID: [id number] Author: Satnam Rodriguez APRN.MARIA TERESA Service: ? Author Type: Nurse Practitioner Type: Progress Notes Filed: 01/18/2023 8:15 AM Note Text: Subjective HPI HPI Kamala Gray is a [...] s/s. - BASIC METABOLIC PNL Satnam Rodriguez APRN.HOSPITAL COORDINATOR [facility] 01-18-2023 Instructions Satnam Rodriguez APRN.CNP - 01/18/2023 8:00 AM EST ASSESSMENT/PLAN: 1. Leg cramps - ICD9: 729.82, ICD10: R25.2 If labs ok I will order magnesium Follow up with primary care provider Urgent follow up for worsening symptoms. - BASIC METABOLIC PNL documented in this encounter [facility] 01-18-2023 History of Present illness Narrative Subjective [...] s/s. - BASIC METABOLIC PNL Satnam Rodriguez APRN.HOSPITAL COORDINATOR documented in this encounter [facility] 01-17-2023 Note HNO ID: [id number] Author: Whitley Hsieh APRN.MARIA TERESA Service: ? Author Type: Nurse [...] not had any visual disturbances. Rates pain 11/07, states it is in her forehead. Review [...] expected course of illness Whitley Hsieh APRN.CNP [facility] 01-17-2023 Instructions Whitley Hsieh APRN.CNP - 01/17/2023 10:20 AM EST ASSESSMENT/PLAN: [...] for concern. INSTRUCTIONS: 1. You may use zvec-gyu-asyoelq pain medication such as acetaminophen, ibuprofen, or [...] arms or legs. documented in this encounter [facility] 01-17-2023 History of Present illness Narrative Subjective [...] Discussed expected course of illness Whitley Hsieh APRN.HOSPITAL COORDINATOR documented in this encounter [facility] 01-10-2023 Hospital Discharge instructions Patient Education 01/10/2023 [...] relieved by rest and mild pain reliever [phone] [employer]. [address] [place] [address]. All rights reserved. This information is not [...] Swelling, pain or redness in one leg [phone] [employer]. [address] [place] [address]. All rights reserved. This information is not intended as a substitute for professional medical care. Always follow your healthcare professional's instructions. Follow Up Care 01/10/2023 08:29:14 With:PHYSICIAN, NOT RECORDED Address:Unknown When:2-4 days With:Follow up with primary care provider Address:Unknown When:2-4 days With:Call AMB New Pt. Refferral [phone] Address:Unknown When:2-4 days With:Go to emergency room if symptoms worsen Address:Unknown When:2-4 days [facility] 01-10-2023 Note Discharge Instructions Thank you for allowing [facility] to assist you with your healthcare needs. [...] Within 2-4 days Follow Up with Call AMB New Pt. Refferral [phone] When Within 2-4 days Follow Up with [...] Vaginal bleeding Duration: 90 Days Managed by OB-TILE PRESSER Unchanged nortriptyline (nortriptyline 50 mg oral capsule) [...] may report side effects to FDA at [phone]-[phone]. What other drugs will affect lorazepam? Taking [...] may affect lorazepam. This includes prescription and usql-hhi-hxymmdp medicines, vitamins, and herbal products. Not all [...] to ensure that the information provided by [employer]. ('[employer]') is accurate, up-to-date, and complete, but no guarantee is made to that effect. Drug information contained herein may be time sensitive. [employer] information has been compiled for use by healthcare practitioners and consumers in the [place] and therefore [employer] does not warrant that uses outside of the [place] are appropriate, unless specifically indicated otherwise. [employer] drug information does not endorse drugs, diagnose patients or recommend therapy. [employer] drug information is an informational resource designed [...] effective or appropriate for any given patient. [employer] does not assume any responsibility for any aspect of healthcare administered with the aid of information [employer] provides. The information contained herein is not intended to cover all possible uses, directions, precautions, warnings, drug interactions, allergic reactions, or adverse effects. If you have questions about the drugs you are taking, check with your doctor, nurse or pharmacist. Copyright 3061-7267 [employer]. Version: 10.. Revision Date: 07/19/2022. Education Materials Anxiety Reaction [...] relieved by rest and mild pain reliever 1336-1481 [employer]. [address] [place] [address], [place] [address]. All rights reserved. This information is not [...] Swelling, pain or redness in one leg 7054-2123 [employer]. [address] [place] [address]. All rights reserved. This information is not intended as a substitute for professional medical care. Always follow your healthcare professional's instructions. Additional Information VACCINATE! IT SAVES LIVES! Members of the community who have not yet received the COVID-19 vaccine and would like to receive it can visit one of [facility] vaccine clinics. There are many vaccine clinic locations within the [facility]. For locations and available times, please visit www.[email or web address].[place].g ov/. It is important to note that some COVID mobile vaccine clinics are held outdoors and may be canceled in rainy or stormy conditions. To learn more about pediatric vaccinations (ages 5-11), we invite you to visit the [facility] webpage. https://www.akronEnerVaults.org/pa ges/9794-Aypxg-Domfselvbij-Freque whtt-Uvmdw-Cztwyfixl.html To learn more about the COVID-19 vaccine, we invite you to visit the CDC website for a list of frequently asked questions. https://www.cdc.gov/coronavirus/2 019-ncov/vaccines/faq.html [facility] Patient Portal Access Instructions: Stay connected with your healthcare team and access your personal medical information anytime with the [facility] Patient Portal. If you would like a full copy of your medical records please contact the [facility] Medical Records Department Tuesday through Tuesday between 8a.m. and 4:30p.m. Please follow the directions below to access the portal: 1.Access the email account you provided upon registration to the [facility].2.Look for an invitation email from [facility].3.Open the email and access the invitation link: Accept Invitation to [facility]4.Fill in the required lee to create your account. Sign into [email or web address] with your username and password that you [...] you will allow to register on the [facility] Patient Portal for access to your information. You can also access the [facility] Patient Portal on the [employer] leigh. Simply click on Health Records under Health Data and then click on the [employer] logo. HOW TO SAFELY DISPOSE OF PRESCRIPTION [...] Call your local pharmacy or go to http://bit.AmigoCAT/4D0Eg5q to find one close to you.3.Make use of household items: Use cat litter or old coffee grounds to dispose medications if other options are not available. Mix your drugs with these household products, seal them in an airtight container and throw it into the garbage. Call [facility]: [phone] to be sure your drugs can be [...] aware that I should contact my doctor. 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: Date/Time: Relationship to Patient: ____ Witness Name/Signature: Date/Time: [facility] 01-10-2023 Note ORIGINAL EXAMINATION: ONE [...] 01/10/2023 9:28:16 AM Ordering Provider: SHEELA GARRIDO [facility] 01-10-2023 Note Sinus rhythm Borderline left axis deviation Low voltage, precordial leads Abnormal R-wave progression, late transition Abnormal T, consider ischemia, diffuse leads Prolonged QT interval Somewhat similar to EKG December 24, 2022. Electronic Signature: SHEELA GARRIDO MD 01/10/2023 09:38:48 [facility] 12-27-2022 Note . MICRO - [...] Locations *1: This test was performed at: [facility], [address] [place] [address], [facility] , [facility] ([place]) 12-24-2022 Note ORIGINAL EXAMINATION: CT OF THE [...] 12/24/2022 9:26:09 PM Ordering Provider: FABIAN MOLINA [facility] 12-24-2022 Note ORIGINAL EXAMINATION: CTA [...] Date: 12/24/2022 9:27:46 PM Ordering Provider: FABIAN [facility] 12-15-2022 Miscellaneous Notes Patient notified and verbalized understanding of instructions given.Inez Stoll LPN Please call patient and let her know that Macrobid twice a day for 5 days is being called in for urine culture results which are mildly contaminated. If symptoms do not improve after antibiotic. Please have patient call primary care provider documented in this encounter [facility] 12-15-2022 Miscellaneous Notes Patient identified by name and date of . Patient advised of lab results. She is currently taking Levothyroxine 175 mcg. She is advised to see her PCP for medication adjustment. [facility] does not manage chronic disease medications. Labs are printed for her and left at [facility] desk for pickup since her PCP is not in [facility] system. Urine culture is still pending; if it shows any bacterial growth an antibiotic will be sent to her pharmacy. Whitley Hsieh APRN.MARIA TERESA documented in this encounter [facility] 12-14-2022 Note HNO ID: [id number] Author: Whitley Hsieh APRN.MARIA TERESA Service: ? Author Type: Nurse Practitioner Type: Progress Notes Filed: 12/14/2022 11:56 AM Note Text: This note was created using [employer]. Subjective Kamala Gray is a 52 year [...] - CBC + DIFF E John [employer] PRODUCTION SUPPORT DEVELOPER Student (more content not included)... [facility] 12-14-2022 Instructions Whitley Hsieh APRN.HOSPITAL COORDINATOR - 12/14/2022 11:56 AM EDT ASSESSMENT/PLAN: 1. [...] - CBC + DIFF E John [employer] PRODUCTION SUPPORT DEVELOPER Student TEACHING PROVIDER (Physician/PA/SAP BPC ARCHITECT) NOTE OF PERSONAL INVOLVEMENT IN CARE: I have personally seen and examined the patient and performed the medical decision-making components. I have reviewed the Advanced Practice Registered Nurse (SAP BPC ARCHITECT) Student's documentation and verified the findings in the note as written. Any additions or changes are noted in bold/italics. Signature: Whitley Hsieh Date: 12/14/2022 Time: 11:55 AM documented in this encounter [facility] 12-14-2022 History of Present illness Narrative Images from the original note were not included. This note was created using [employer]. Subjective Kamala Gray is a 52 year [...] - CBC + DIFF E John [employer] PRODUCTION SUPPORT DEVELOPER Student TEACHING PROVIDER (Physician/PA/MICAH) NOTE OF PERSONAL INVOLVEMENT IN CARE: I have personally seen and examined the patient and performed the medical decision-making components. I have reviewed the Advanced Practice Registered Nurse (SAP BPC ARCHITECT) Student's documentation and verified the findings in the note as written. Any additions or changes are noted in bold/italics. Signature: Whitley Hsieh Date: 12/14/2022 Time: 11:55 AM documented in this encounter [facility] 11-20-2022 Evaluation + Plan note Future Scheduled TestsIron Level 11/20/22Thyroid Stimulating Hormone 11/20/22Free T4 11/20/22A1C Hemoglobin 11/20/22Complete Blood Count 11/20/22Lipid Profile 11/20/22Albumin/Creatinine Ratio, Random Urine 11/20/22Microalbumin Level Urine 05/17/22Vitamin D Level 11/20/22Complete Metabolic Panel 11/20/22TIBC 11/20/22 [facility] 11-16-2022 Note HNO ID: [id number] Author: Dion Escobar PA-C Service: ? Author Type: Physician Civil Engineering Project Manager Type: Progress Notes Filed: 11/16/2022 12:55 PM Note Text: This note was created using [employer]. Subjective Kamala Gray is a 52 year old female. HPI Patient presents with full complaints. She was in the [place] emergency department November 11 and had a [...] and she has an open wound. No dmhy-qow-qvjknlb medicines tried or bandages. Patient also complaining [...] of bronchitis. Discus (more content not included)... [facility] 11-16-2022 History of Present illness Narrative Images from the original note were not included. This note was created using [employer]. Subjective Kamala Garcia Gray is a 52 year old female. HPI Patient presents with full complaints. She was in the [place] emergency department November 11 and had a [...] and she has an open wound. No hipb-hzv-jrizibf medicines tried or bandages. Patient also complaining [...] Dion Escobar PA-C documented in this encounter [facility] 10-06-2022 Note . MICRO - Microbiology PROCEDURE: [...] Locations *1: This test was performed at: [facility], [address] [place] [address], [id number] , [facility] ([place]) 10-03-2022 Hospital Discharge instructions Patient Education 10/03/2022 [...] Swelling, pain or redness in one leg 5674-7316 [employer]. [address] [place] [address]. All rights reserved. This information is not [...] swelling in the outer vaginal area (labia) 4026-7641 [employer]. [address] [place] [address]. All rights reserved. This information is not intended as a substitute for professional medical care. Always follow your healthcare professional's instructions. Follow Up Care 10/03/2022 13:22:37 With:JAI GANT DO Address: [address] [facility] [place] [phone] When:2-4 days Comments:Schedule appointment as soon as possible [facility] 10-03-2022 Emergency department Discharge summary Discharge Instructions Thank you for allowing [facility] to assist you with your healthcare needs. [...] Schedule appointment as soon as possible Where: [address] [place] [address] [place] [phone] Allergies Naprosyn (Nausea) aspirin (NAUSEA) Medications Please [...] Vaginal bleeding Duration: 90 Days Managed by OB-TILE PRESSER Unchanged nortriptyline (nortriptyline 50 mg oral capsule) [...] Swelling, pain or redness in one leg 4744-6760 [employer]. [address] [place] [address]. All rights reserved. This information is not [...] swelling in the outer vaginal area (labia) 8602-4285 [employer]. [address] [place] [address], [place] [address]. All rights reserved. This information is not intended as a substitute for professional medical care. Always follow your healthcare professional's instructions. Additional Information VACCINATE! IT SAVES LIVES! Members of the community who have not yet received the COVID-19 vaccine and would like to receive it can visit one of [facility] vaccine clinics. There are many vaccine clinic locations within the [facility]. For locations and available times, please visit www.gettheshot.coronavirus.[place].g ov/. It is important to note that some COVID mobile vaccine clinics are held outdoors and may be canceled in rainy or stormy conditions. To learn more about pediatric vaccinations (ages 5-11), we invite you to visit the [employer] webpage. https://www.eBuilder.org/pa ges/8959-Antgf-Kbctwnznepi-Freque bapy-Ircey-Kmfaclbiq.html To learn more about the COVID-19 vaccine, we invite you to visit the CDC website for a list of frequently asked questions. https://www.cdc.gov/coronavirus/2 019-ncov/vaccines/faq.html [facility] Patient Portal Access Instructions: Stay connected with your healthcare team and access your personal medical information anytime with the [facility] Patient Portal. If you would like a full copy of your medical records please contact the [facility] Medical Records Department Tuesday through Tuesday between 8a.m. and 4:30p.m. Please follow the directions below to access the portal: 1.Access the email account you provided upon registration to the hospital.2.Look for an invitation email from [facility].3.Open the email and access the invitation link: Accept Invitation to [facility]4.Fill in the required lee to create your account. Sign into [email or web address] with your username and password that you [...] you will allow to register on the [facility] Patient Portal for access to your information. You can also access the [facility] Patient Portal on the [employer] leigh. Simply click on Health Records under [employer] and then click on the [employer] logo. HOW TO SAFELY DISPOSE OF PRESCRIPTION [...] Call your local pharmacy or go to [email or web address] to find one close to you.3.Make use of household items: Use cat litter or old coffee grounds to dispose medications if other options are not available. Mix your drugs with these household products, seal them in an airtight container and throw it into the garbage. Call [facility]: [phone] to be sure your drugs can be [...] aware that I should contact my doctor. 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: Date/Time: Relationship to Patient: ____ Witness Name/Signature: Date/Time: [facility] 10-03-2022 Note ORIGINAL EXAMINATION: CTA [...] 10/03/2022 3:25:19 PM Ordering Provider: ANGIE CRUZ [facility] 10-03-2022 Note ORIGINAL EXAMINATION: CT [...] Sign Date: 10/03/2022 3:27:50 PM Ordering Provider: [facility] 10-03-2022 Note ORIGINAL EXAMINATION: ONE XRAY VIEW [...] Sign Date: 10/03/2022 2:58:22 PM Ordering Provider: [facility] 10-03-2022 Note Sinus tachycardia Electronic Signature: SHEELA GARRIDO MD 10/03/2022 13:53:[address] [facility] Tonya 09-23-2022 Hospital Discharge instructions Patient Education 09/23/2022 [...] worsens and is not improved with elevation. [id number] [employer]. [address] [place] [address], [place] [address]. All rights reserved. This information is not intended as a substitute for professional medical care. Always follow your healthcare professional's instructions. Follow Up Care 09/22/2022 23:40:44 With:LUZ ELENA SANCHEZ MD Address: [facility] [place] [address]- When:2-[address] [facility] Tonya 09-23-2022 Note Discharge Instructions Thank you for allowing Johny [...] When Within 2-4 days Where: [facility] [address] [place] [id number]- Allergies Naprosyn (Nausea) aspirin (NAUSEA) Medications Please [...] Vaginal bleeding Duration: 90 Days Managed by OB-TILE PRESSER Unchanged nortriptyline (nortriptyline 50 mg oral capsule) [...] worsens and is not improved with elevation. [id number] [employer]. [address] [place] [address], [place] [address]. All rights reserved. This information is not intended as a substitute for professional medical care. Always follow your healthcare professional's instructions. Additional Information VACCINATE! IT SAVES LIVES! Members of the community who have not yet received the COVID-19 vaccine and would like to receive it can visit one of [facility] vaccine clinics. There are many vaccine clinic locations within the [facility]. For locations and available times, please visit [email or web address] It is important to note that some COVID mobile vaccine clinics are held outdoors and may be canceled in rainy or stormy conditions. To learn more about pediatric vaccinations (ages 5-11), we invite you to visit the [employer] webpage. [email or web address] [email or web address]-Qmvum-Xqucmoccydf-[email or web address] xkuk-Tkdgl-Ydttudqtq.html To learn more about the COVID-19 vaccine, we invite you to visit the CDC website for a list of frequently asked questions. https://www.cdc.gov/coronavirus/2 019-ncov/vaccines/faq.html [facility] Patient Portal Access Instructions: Stay connected with your healthcare team and access your personal medical information anytime with the [facility] Patient Portal. If you would like a full copy of your medical records please contact the [facility] Medical Records Department Tuesday through Tuesday between 8a.m. and 4:30p.m. Please follow the directions below to access the portal: 1.Access the email account you provided upon registration to the hospital.2.Look for an invitation email from [facility].3.Open the email and access the invitation link: Accept Invitation to [facility]4.Fill in the required lee to create your account. Sign into [email or web address] with your username and password that you [...] you will allow to register on the [facility] Patient Portal for access to your information. You can also access the [employer] Patient Portal on the [employer]. Simply click on Health Records under Health Data and then click on the [employer] logo. HOW TO SAFELY DISPOSE OF PRESCRIPTION [...] Call your local pharmacy or go to [email or web address] to find one close to you.3.Make use of household items: Use cat litter or old coffee grounds to dispose medications if other options are not available. Mix your drugs with these household products, seal them in an airtight container and throw it into the garbage. Call [facility]: [phone] to be sure your drugs can be [...] aware that I should contact my doctor. 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: Date/Time: Relationship to Patient: ____ Witness Name/Signature: Date/Time: [facility] 09-23-2022 Note ORIGINAL EXAMINATION: ONE [...] Date: 09/23/2022 12:30:42 AM Ordering Provider: [facility] 08-17-2022 Note HNO ID: [id number] Author: Whitley Hsieh APRN.HOSPITAL COORDINATOR Service: ? Author Type: Nurse Practitioner Type: Progress Notes Filed: 08/17/2022 2:48 PM Note Text: Subjective HPI Kamala Gray is a 52 year old female who presents with a headache and nausea. She was seen here on 08/13 for a fall that occurred 2 days prior. She was referred to ER. Patient states she went to [place] ER for treatment, had a CT scan [...] Discussed expected course of illness Whitley Hsieh APRN.MARIA TERESA [facility] 08-17-2022 Instructions Whitley Hsieh APRN.MARIA TERESA - 08/17/2022 2:48 PM EDT [...] Discussed expected course of illness Whitley Hsieh APRN.HOSPITAL COORDINATOR documented in this encounter [facility] 08-17-2022 History of Present illness Narrative Subjective HPI Kamala Gray is a 52 year old female who presents with a headache and nausea. She was seen here on 08/13 for a fall that occurred 2 days prior. She was referred to ER. Patient states she went to [place] ER for treatment, had a CT scan [...] Discussed expected course of illness Whitley Hsieh APRN.HOSPITAL COORDINATOR documented in this encounter [facility] 08-13-2022 Hospital Discharge instructions Patient Education 08/13/2022 [...] splint gets wet, dry it with a chairlift operator on a cool setting. Place an ice [...] doesn t get wet. You may use ooim-wtg-xkxwkul pain medicine to control pain, unless another [...] cast or splint develops cracks or breaks [phone] [employer]. [address] [place] [address]. All rights reserved. This information is not intended as a substitute for professional medical care. Always follow your healthcare professional's instructions. Follow Up Care 08/13/2022 20:56:52 With:GEOFFREY PAGE MD Address: [address] [place] [address] & [place] [address]- [phone] When:2-4 days [facility] 08-13-2022 Note ORIGINAL EXAMINATION: CT [...] 08/13/2022 10:05:04 PM Ordering Provider: INA DICKSON [facility] 08-13-2022 Note Discharge Instructions Thank you for allowing [facility] to assist you with your healthcare needs. The following is important discharge information regarding your hospital visit. Diagnosis from Today's Visit Fall Fibula fracture What to Do Next Instructions from Your Care Team Discharge Home Equipment - Ordered -- Crutches, month(s), 08/13/22 21:58:00 EDT Discharge Home Equipment - Ordered -- Walking Boot, month(s), 08/13/22 21:58:00 EDT Post Acute Orders No qualifying data available. You Need to Schedule the Following Appointments Follow Up with GEOFFREY PAGE MD When Within 2-4 days Where: [address] [facility] [address] [place] [facility] [place] [place] [address]- [phone] Allergies Naprosyn (Nausea) aspirin (NAUSEA) Medications Please [...] Vaginal bleeding Duration: 90 Days Managed by OB-TILE PRESSER Unchanged nortriptyline (nortriptyline 50 mg oral capsule) [...] splint gets wet, dry it with a chairlift operator on a cool setting. Place an ice [...] doesn t get wet. You may use qqsf-fxk-sbyiovi pain medicine to control pain, unless another [...] cast or splint develops cracks or breaks [phone] [employer]. [address] [place] [address]. All rights reserved. This information is not intended as a substitute for professional medical care. Always follow your healthcare professional's instructions. Additional Information VACCINATE! IT SAVES LIVES! Members of the community who have not yet received the COVID-19 vaccine and would like to receive it can visit one of [facility] vaccine clinics. There are many vaccine clinic locations within the [facility]. For locations and available times, please visit [email or web address] [email or web address] It is important to note that some COVID mobile vaccine clinics are held outdoors and may be canceled in rainy or stormy conditions. To learn more about pediatric vaccinations (ages 5-11), we invite you to visit the [facility] webpage. https://www.[email or web address].org/pa ges/6036-Mlhsj-Papkitydpyn-Freque fmky-Jfpzg-Uufivkhrm.html To learn more about the COVID-19 vaccine, we invite you to visit the CDC website for a list of frequently asked questions. https://www.cdc.gov/coronavirus/2 019-ncov/vaccines/faq.html [place] Patient Portal Access Instructions: Stay connected with your healthcare team and access your personal medical information anytime with the [facility] Patient Portal. If you would like a full copy of your medical records please contact the [facility] Medical Records Department Tuesday through Tuesday between 8a.m. and 4:30p.m. Please follow the directions below to access the portal: 1.Access the email account you provided upon registration to the [facility].2.Look for an invitation email from [facility].3.Open the email and access the invitation link: Accept Invitation to [facility]4.Fill in the required lee to create your account. Sign into [email or web address] with your username and password that you [...] you will allow to register on the [facility] Patient Portal for access to your information. You can also access the [facility] Patient Portal on the [employer]. Simply click on Health Records under Health [...] Call your local pharmacy or go to [email or web address] to find one close to you.3.Make use of household items: Use cat litter or old coffee grounds to dispose medications if other options are not available. Mix your drugs with these household products, seal them in an airtight container and throw it into the garbage. Call [facility]: [phone] to be sure your drugs can be [...] aware that I should contact my doctor. 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: Date/Time: Relationship to Patient: ____ Witness Name/Signature: Date/Time: [facility] 08-13-2022 Note ORIGINAL EXAMINATION: TWO [...] Sign Date: 08/13/2022 10:01:45 PM Ordering Provider: [facility] 08-13-2022 Note ORIGINAL EXAMINATION: XRAY [...] Sign Date: 08/13/2022 9:51:40 PM Ordering Provider: [facility] 08-13-2022 Note ORIGINAL EXAMINATION: CT [...] Sign Date: 08/13/2022 10:05:04 PM Ordering Provider: [facility] 08-13-2022 Note ORIGINAL EXAMINATION: TWO [...] Sign Date: 08/13/2022 10:01:45 PM Ordering Provider: [facility] 08-13-2022 Note ORIGINAL EXAMINATION: XRAY [...] Sign Date: 08/13/2022 9:51:40 PM Ordering Provider: [facility] 08-13-2022 Note HNO ID: [id number] Author: Satnam Rodriguez APRN.HOSPITAL COORDINATOR Service: ? Author Type: Nurse Practitioner Type: Progress Notes Filed: 08/13/2022 7:30 PM Note Text: Patient triaged at the medical center. Here today with fall 2 days ago, hit head, having h/a as well as multi joint pain. I advised patient to go to ER. Unclear what ER patient will go to. [facility] 08-13-2022 History of Present illness Narrative Patient triaged at the medical center. Here today with fall 2 days ago, hit head, having h/a as well as multi joint pain. I advised patient to go to ER. Unclear what ER patient will go to. documented in this encounter [facility] 08-05-2022 Note HNO ID: [id number] Author: RT Christiano(R) Service: ? Author Type: Heel Curver Type: Progress Notes Filed: 08/05/2022 6:34 PM [...] RT Christiano(R) August 05, 2022 6:22 PM [facility] 08-05-2022 Note HNO ID: [id number] Author: Whitley Hsieh APRN.MARIA TEERSA Service: ? Author Type: Nurse Practitioner Type: [...] are noted. IMPRESSION: No acute osseous abnormality Television Announcer: ADAM Transcribe Date/Time: Aug 05 2022 6:39P [...] Discussed expected course of illness Whitley Hsieh APRN.MARIA TERESA [facility] 07-28-2022 Note HNO ID: [id number] Author: Dion Escobar PA-C Service: ? Author Type: Physician Civil Engineering Project Manager Type: Progress Notes Filed: 07/28/2022 11:45 AM Note Text: This note was created using [employer]. Subjective Kamala Gray is a 51 year [...] numbness or tingling. She has taken Advil zhxn-ula-xaqrxnq for pain. Review of Systems Constitutional: Negative. [...] Obesity, Class III, BMI 40-49.9 (morbid obesity) ([facility]) Renal calculi Current Outpatient Medications Medication Sig [...] ICD9: 848.9, ICD10: T14.8XXA Dion Escobar PA-C [facility] 07-28-2022 Note HNO ID: [id number] Author: RT Mimi(R) Service: Radiology Author Type: [...] RT Mimi(R) July 28, 2022 10:10 AM [facility] 07-28-2022 History of Present illness Narrative This note was created using [employer]. Subjective Kamala Gray is a 51 year [...] numbness or tingling. She has taken Advil kwen-uet-fiwvisd for pain. Review of Systems Constitutional: Negative. [...] Dion Escobar PA-C documented in this encounter [facility] 05-18-2022 Note HNO ID: [id number] Author: Satnam Rodriguez APRN.HOSPITAL COORDINATOR Service: ? Author Type: Nurse Practitioner Type: Progress Notes Filed: 05/18/2022 4:22 PM Note Text: Subjective HPI HPI Kamala Gray is a 51 year [...] MONOHYDRATE 100 MG TABLET Satnam Rodriguez APRN.MARIA TREESA [facility] 05-04-2022 Note HNO ID: [id number] Author: Dion Escobar PA-C Service: ? Author Type: Physician Civil Engineering Project Manager Type: Progress Notes Filed: 05/04/2022 4:03 PM Note Text: This note was created using [employer]. Subjective Kamala Gray is a 51 year [...] in the emergency department. Patient went to [facility]. Report given via ER passport. Dion Escobar PA-C [facility] 03-07-2023 History of Present illness Narrative Images from the original note were not included. This note was created using [employer]. Subjective Kamala Gray is a 51 year [...] in the emergency department. Patient went to [facility]. Report given via ER passport. Dion Escobar PA-C documented in this encounter [facility] 04-17-2022 Note HNO ID: [id number] Author: Jessica Mcintosh APRN.HOSPITAL COORDINATOR Service: ? Author Type: Nurse Practitioner Type: Progress Notes Filed: 04/17/2022 1:41 PM Note Text: Subjective The history is provided by the patient and a relative. No terminal manager was used. HPI Kamala Gray is a [...] have confirmed and edited as necessary, the [facility] Review of Systems Constitutional: Negative for [...] detail warranting prompt ER evaluation. Jessica Mcintosh APRN.[facility] 04-17-2022 History of Present illness Narrative Images from the original note were not included. Subjective The history is provided by the patient and a relative. No terminal manager was used. HPI Kamala Gray is a [...] have confirmed and edited as necessary, the [facility] Review of Systems Constitutional: Negative for [...] Mcintosh APRN.MARIA TERESA documented in this encounter [facility] 02-26-2022 Miscellaneous Notes Patient notified.Inez Stoll LPN Negative for flu and covid please notify thank you documented in this encounter [facility] 02-25-2022 History of Present illness Narrative CC: Patient presents with: Cough: Chest congestion, Wilson, x4 days. HPI: Kamala Gray is a 51 year old female who presents to the office with above complaint Symptoms began 2 days ago and include: Fever (?100.4F): No or Chills: Yes Cough: Yes Shortness of breath: Yes Fatigue: Yes Muscle aches: Yes Headache: Yes New loss of smell or taste: No Sore throat: No Nasal congestion: Yes or Rhinorrhea: Yes Nausea: No or Vomiting: No Diarrhea: No Other Associated symptoms: wheezing. OTC meds/remedies that patient has tried: albuterol inhaler. Exposures: Sick contacts? No Family or close contacts with confirmed/probable COVID-19 in last 14 days? No COVID vaccine: No The ROS is otherwise negative. The patient's pmh, medications, allergies, and past visits are reviewed. PHYSICAL EXAM: BP 138/80 Pulse 82 Temp 37.1 C (98.7 F) (Tympanic) Resp 16 Wt 124.1 kg (273 lb 9.6 oz) SpO2 99% General appearance: tired/ill appearing, alert, cooperative, pleasant, in no acute distress Head: Normocephalic Eyes: conjunctiva pink and moist, no icterus, sclera white, non-injected Ears: Right ear: External ear/canal- Normal, TM - clear with good landmarks. Left ear: External ear/canal- Normal, TM - clear with good landmarks Nose: clear. Oropharynx:No erythema, exudates or tonsillar hypertrophy. Neck:supple and no adenopathy Heart: Negative. RRR without obvious murmur, gallop, or rubs. No ectopy. Lungs: clear to auscultation, without rales or wheeze, good air exchange ASSESSMENT/PLAN: 1. Viral URI with cough - ICD9: 465.9, ICD10: J06.9 (primary diagnosis) - Meets symptom-based criteria for testing and is high risk. - COVID swab collected at time of office visit - Instructed to isolate pending test results - Discussed symptom monitoring and supportive care - Red flag symptoms requiring follow up discussed - COVID WITH FLUA+B, ROUTINE 2. Exacerbation of asthma, unspecified asthma severity, unspecified whether persistent - ICD9: 493.92, ICD10: J45.901 Secondary to viral URI. Start Prednisone. Tessalon Perles and Mucinex as needed for cough. Follow-up with PCP if symptoms persist. Prescription instructions reviewed with patient as applicable. Potential red flag symptoms discussed with the patient. Reviewed appropriate action plan to take if red flag symptoms occur. Patient agreeable to treatment plan. Ria Montoya APRN.CNP documented in this encounter [facility] 12-20-2021 Hospital Discharge instructions Patient Education 12/20/2021 18:16:02 Hypokalemia Hypokalemia Hypokalemia means a low level of potassium in the blood. This most often occurs in people who take water pills (diuretics). It can also occur because of severe vomiting or diarrhea. You may also have it if you take laxatives for long periods of time. It sometimes happens if you have low magnesium (hypomagnesemia). If you have this, your healthcare provider will treat the low magnesium first. A mild case of hypokalemia usually causes no symptoms. It is only found with blood testing. More severe potassium loss causes overall weakness, muscle or abdominal cramps, rapid or irregular heartbeats (heart palpitations), low blood pressure, and muscle weakness. Home care Take any potassium supplements as prescribed. Eat foods rich in potassium. The highest amount is found in avocado, baked potatoes, spinach, cantaloupe, cod, halibut, salmon, and scallops. White, red, or gautam beans are also very good sources. A modest amount of potassium is found in orange juice, bananas, carrots, and tomato juice. If you take certain types of diuretics, you will also need to take potassium supplements. If you take a diuretic, discuss potassium supplements with your doctor. Follow-up care Follow up with your healthcare provider for a repeat blood test within the next week, or as advised by our staff. When to seek medical advice Call your healthcare provider right away if any of the following occur: Increased weakness, fatigue, or muscle cramps Dizziness Call 911 Call 911 if any of the following occur: Irregular heartbeat, extra beats, or very fast heart rate Loss of consciousness [phone] [employer]. [address] [place] [address]. All rights reserved. This information is not intended as a substitute for professional medical care. Always follow your healthcare professional's instructions. 12/20/2021 18:16:02 Vomiting (Adult) Vomiting (Adult) Vomiting is a common symptom that may be due to different causes. These include gastroenteritis ( stomach flu ), food poisoning and gastritis. There are other more serious causes of vomiting which may be hard to diagnose early in the illness. Therefore, it is important to watch for the warning signs listed below. The main danger from repeated vomiting is dehydration. This is due to excess loss of water and minerals from the body. When this occurs, your body fluids must be replaced. Home care If symptoms are severe, rest at home for the next 24 hours. Because your symptoms may be from an infection, wash your hands often and well. If soap and water are not available, use alcohol-based psychology lecturer to keep from spreading the infection to others. Wash your hands for at least 20 seconds. Humming the happy birthday song twice while you wash is an easy way to make sure you've washed for 20 seconds. Wash your hands after using the toilet, before and after preparing food, before eating food, after changing a diaper, cleaning a wound, caring for a sick person, and blowing your nose, coughing, or sneezing. You should also wash your hands after caring for someone who is sick, touching pet food, or treats, and touching an animal, or animal waste. You may use acetaminophen or NSAID medicines like ibuprofen or naproxen to control fever, unless another medicine was prescribed. If you have chronic liver or kidney disease or ever had a stomach ulcer or gastrointestinal bleeding, talk with your doctor before using these medicines. Aspirin should never be used in anyone under 18 years of age who is ill with a fever. It may cause severe liver damage. Don't use NSAID medicines if you are already taking one for another condition (like arthritis) or are on aspirin (such as for heart disease, or after a stroke) Don't use tobacco and or drink alcohol, which may worsen your symptoms. If medicines for vomiting were prescribed, take as directed. Once vomiting stops, then follow these guidelines: During the first 12 to 24 hours follow the diet below: Fruit juices. Apple, grape juice, clear fruit drinks, and electrolyte replacement drinks. Beverages. Soft drinks without caffeine; mineral water (plain or flavored), decaffeinated tea and coffee. Soups. Clear broth and bouillon Desserts. Plain gelatin, ice pops, and fruit juice bars. As you feel better, you may add 6 to 8 ounces of yogurt per day. During the next 24 hours you may add the following to the above: Hot cereal, plain toast, bread, rolls, crackers Plain noodles, rice, mashed potatoes, chicken noodle or rice soup Unsweetened canned fruit such as applesauce, bananas (avoid pineapple and citrus) Limit caffeine and chocolate. No spices or seasonings except salt. During the next 24 hours: Gradually resume a normal diet, as you feel better and your symptoms lessen. Follow-up care Follow up with your healthcare provider, or as advised. When to seek medical advice Call your healthcare provider right away if any of these occur: Constant right-sided lower belly pain or increasing general belly pain Continued vomiting (unable to keep liquids down) for 24 hours Vomiting blood or coffee grounds Swollen belly Frequent diarrhea (more than 5 times a day); blood (red or black color) or mucus in diarrhea Reduced urine output or extreme thirst Weakness, dizziness or fainting Unusually drowsy or confused Fever of 100.4 F (38 C) oral or higher, or as directed Yellow color of the eyes or skin [phone] [employer]. [address] [place] [address]. All rights reserved. This information is not intended as a substitute for professional medical care. Always follow your healthcare professional's instructions. Follow Up Care 12/20/2021 13:43:42 With:BRYANT MARTINEZ Address: [address] [place] [address]- [phone] Business (1) When:2-4 days Comments:Use Reglan as needed for nausea. Do not take Reglan with Zofran, Phenergan or other antinausea agents, take potassium as prescribed. Drink plenty of fluids, follow-up with your doctor and GI doctor. Return if worsening or concerning symptoms. With:YSABEL LUTZ Address: [address] [facility] [place] [address]- Business (1) When:2-4 days [facility] 12-20-2021 Emergency department Discharge summary Discharge Instructions Thank you for allowing [facility] to assist you with your healthcare needs. The following is important discharge information regarding your hospital visit. Diagnosis from Today's Visit Headache Hypokalemia Nausea Vomiting What to Do Next Instructions from Your Care Team No qualifying data available. Post Acute Orders No qualifying data available. You Need to Schedule the Following Appointments Follow Up with BRYANT MARTINEZ When Within 2-4 days Why: Use Reglan as needed for nausea. Do not take Reglan with Zofran, Phenergan or other antinausea agents, take potassium as prescribed. Drink plenty of fluids, follow-up with your doctor and GI doctor. Return if worsening or concerning symptoms. Where: [address] [place] [address]- [phone] Business (1) Follow Up with YSABEL LUTZ When Within 2-4 days Where: [address] [facility] [place] [address]- Business (1) Allergies Naprosyn (Nausea) aspirin (NAUSEA) Medications Please ask your primary doctor or pharmacist before taking any other medication not listed, including over the counter drugs, herbal medications, vitamins and or supplements as they may interact with your home medications. What How Much When Why Instructions Last Dose New metoclopramide (metoclopramide 5 mg oral tablet) 1 tab(s) by mouth Four (4) times a day Duration: 7 Days Printed Prescription New potassium chloride (Potassium Chloride (Cse-Qfiq-Bjf M20) 20 mEq oral tablet, extended release) 1 tab(s) by mouth Two (2) times a day Duration: 3 Days Printed Prescription Unchanged acetaminophen (Tylenol Extra Strength 500 mg oral tablet) 3 tab by mouth Every 6 hours as needed for as needed for pain Unchanged albuterol (Proventil HFA MDI (90 mcg/ inh) inhalation aerosol) 2 puff(s) by inhalation Every 4 hours as needed for as needed for wheezing Managed by pulmonology Unchanged amLODIPine (amLODIPine 5 mg oral tablet) 1 tab(s) by mouth Once a day HTN, goal below 140/90 Duration: 30 Days Managed by Cardiology Unchanged ascorbic acid (Vitamin C 500 mg [...] mg every month by subcutaneous route. Unchanged hydrOXYzine (hydrOXYzine pamoate 25 mg oral capsule) 1 cap by mouth Three (3) times a day as needed for as needed for anxiety Unchanged levothyroxine (levothyroxine 175 mcg (0.175 mg) oral tablet) 1 tab(s) by mouth Once a day before a meal Unchanged LORazepam (LORazepam 2 mg oral tablet) 1 tab(s) by mouth Once a day Unchanged megestrol (megestrol 40 mg oral tablet) 1 tab(s) by mouth Every day Vaginal bleeding Duration: 90 Days Managed by [employer] Unchanged nortriptyline (nortriptyline 50 mg oral capsule) 1 cap by mouth Daily at bedtime Unchanged omeprazole (omeprazole 40 mg oral delayed release capsule) TAKE 1 CAPSULE BY MOUTH EVERY DAY Unchanged ondansetron (ondansetron 4 mg oral tablet, disintegrating) Unchanged promethazine (promethazine 25 mg oral tablet) 1 tab(s) by mouth Every 6 hours as needed for as needed for motion sickness Duration: 5 Days Unchanged rimegepant (Nurtec ODT 75 mg oral tablet, disintegrating) 1 tab(s) by mouth Every 24 hours as needed for as needed for migraine headache not to exceed 75 mg in 24 hours Unchanged rosuvastatin (Crestor 40 mg oral tablet) 1 tab(s) by mouth Once a day Hyperlipidemia LDL goal <100 Duration: 30 Days Unchanged tiZANidine (tiZANidine 4 mg oral capsule) 1 cap by mouth Two (2) times a day Unchanged topiramate (topiramate 100 mg oral tablet) 1 tab(s) by mouth Once a day Migraine Managed by Neurology Unchanged traMADol (traMADol 50 mg oral tablet) [...] medication providers or retail pharmacies. Medication Leaflets metoclopramide (oral/injection) (MET [place]) Metozolv JUAN MIGUELT, Adrian What is the most important information I should know about metoclopramide? Do not use this medicine if you've ever had muscle movement problems after using metoclopramide or similar medicines, or if you've had a movement disorder called tardive dyskinesia. You also should not use metoclopramide if you've had stomach or intestinal problems (a blockage, bleeding, or a hole or tear), epilepsy or other seizure disorder, or an adrenal gland tumor (pheochromocytoma). NEVER USE METOCLOPRAMIDE IN LARGER AMOUNTS THAN RECOMMENDED, OR FOR LONGER THAN 12 WEEKS. High doses or long-term use of metoclopramide can cause a serious movement disorder that may not be reversible. The longer you use metoclopramide, the more likely you are to develop this movement disorder. The risk of this side effect is higher in diabetics and older adults (especially women). Call your doctor at once if you have uncontrollable muscle movements in your lips, tongue, eyes, face, arms, or legs. What is metoclopramide? Metoclopramide increases muscle contractions in the upper digestive tract. This speeds up the rate at which the stomach empties into the intestines. Metoclopramide oral (taken by mouth) is used for 4 to 12 weeks to treat heartburn caused by gastroesophageal reflux in people who have used other medications without relief. Metoclopramide oral is also used to treat gastroparesis (slow stomach emptying) in people with diabetes, which can cause heartburn and stomach discomfort after meals. Metoclopramide injection is used to treat severe diabetic gastroparesis. The injection is also used to prevent nausea and vomiting caused by chemotherapy or surgery, or to aid in certain medical procedures involving the stomach or intestines. Metoclopramide may also be used for purposes not listed in this medication guide. What should I discuss with my healthcare provider before using metoclopramide? You should not use metoclopramide if you are allergic to it, or if you have: tardive dyskinesia (a disorder of involuntary movements); stomach or intestinal problems such as a blockage, bleeding, or perforation (a hole or tear in your stomach or intestines); epilepsy or other seizure disorder; an adrenal gland tumor (pheochromocytoma); or if you've ever had muscle movement problems after using metoclopramide or similar medicines. Tell your doctor if you have ever had: liver or kidney disease; problems with muscle movements; congestive heart failure or a heart rhythm disorder; high blood pressure; seizures; breast cancer; Parkinson's disease; diabetes; or depression or mental illness. This medicine may contain phenylalanine. Check the medication label if you have phenylketonuria (PKU). Tell your doctor if you are . Metoclopramide may harm an unborn baby if you use the medicine during late . It may not be safe to breast-feed a baby while you are using this medicine. Ask your doctor about any risks. Metoclopramide is not approved for use by anyone younger than 18 years old. How should I use metoclopramide? Follow the directions on your prescription label and read all medication guides. Use the medicine exactly as directed. A metoclopramide injection is given into a muscle or as an infusion into a vein. A healthcare provider will give the injection, usually during surgery, chemotherapy, or a medical procedure. Metoclopramide oral is taken for only 4 to 12 weeks. NEVER USE METOCLOPRAMIDE IN LARGER AMOUNTS THAN RECOMMENDED, OR FOR LONGER THAN 12 WEEKS. High doses or long-term use of metoclopramide can cause a serious movement disorder that may not be reversible. The longer you use metoclopramide, the more likely you are to develop this movement disorder. The risk of this side effect is higher in diabetics and older adults (especially women). Metoclopramide is usually taken 30 minutes before meals and at bedtime, or only with meals that usually cause heartburn. Follow your doctor's dosing instructions very carefully. Do not use two different forms of metoclopramide (such as tablets and oral syrup) at the same time. Measure liquid medicine carefully. Use the dosing syringe provided, or use a medicine dose-measuring device (not a kitchen spoon). To take the orally disintegrating tablet (ODT): Remove a tablet from its blister pack only when you are ready to take the tablet. Use dry hands and take care not to damage a tablet while pushing it out of the blister. Place the tablet in your mouth and allow it to dissolve, without chewing or swallowing it whole. You may sip liquid if needed to help swallow the dissolved tablet. Store at room temperature in a tightly-closed container, away from moisture and heat. Keep the bottle tightly closed. After you stop taking metoclopramide, you may have unpleasant withdrawal symptoms such as headache, dizziness, or nervousness. What happens if I miss a dose? Take the medicine as soon as you can, but skip the missed dose if it is almost time for your next dose. Do not take two doses at one time. What happens if I overdose? Seek emergency medical attention or call the Poison Help line at . Overdose symptoms may include drowsiness, confusion, or uncontrolled muscle movements. What should I avoid while taking metoclopramide? Drinking alcohol with this medicine can cause side effects. Avoid driving or hazardous activity until you know how this medicine will affect you. Your reactions could be impaired. What are the possible side effects of metoclopramide? Get emergency medical help if you have signs of an allergic reaction: hives; difficult breathing; swelling of your face, lips, tongue, or throat. Stop taking metoclopramide and call your doctor at once if you have any of these SIGNS OF A SERIOUS MOVEMENT DISORDER, which may occur within the first 2 days of treatment: tremors or shaking in your arms or legs; uncontrolled muscle movements in your face (chewing, lip smacking, frowning, tongue movement, blinking or eye movement); or any new or unusual muscle movements you cannot control. Call your doctor at once if you have: confusion, depression, thoughts of suicide or hurting yourself; slow or jerky muscle movements, problems with balance or walking; mask-like appearance in your face; a seizure; anxiety, agitation, jittery feeling, trouble staying still, trouble sleeping; swelling, feeling short of breath, rapid weight gain; or severe nervous system reaction--very stiff (rigid) muscles, high fever, sweating, confusion, fast or uneven heartbeats, tremors, feeling like you might pass out. Common side effects may include: feeling restless; feeling drowsy or tired; lack of energy; nausea, vomiting; headache, confusion; or sleep problems (insomnia). This is not a complete list of side effects and others may occur. Call your doctor for medical advice about side effects. You may report side effects to FDA at 1-407-PFV-7930. What other drugs will affect metoclopramide? Using metoclopramide with other drugs that make you drowsy can worsen this effect. Ask your doctor before you take opioid pain medication, a sleeping pill, a muscle relaxer, or medicine for anxiety, depression, or seizures. Tell your doctor about all your current medicines. Many drugs can affect metoclopramide, especially: an antidepressant; antipsychotic medication; blood pressure medication; insulin; medicine to treat Parkinson's disease or restless leg syndrome; or an MAO inhibitor--isocarboxazid, linezolid, methylene blue injection, phenelzine, tranylcypromine, and others. This list is not complete and many other drugs may affect metoclopramide. This includes prescription and qyiy-hir-zblfsdd medicines, vitamins, and herbal products. Not all possible drug interactions are listed here. Where can I get more information? Your pharmacist can provide more information about metoclopramide. Remember, keep this and all other medicines out of the reach of children, never share your medicines with others, and use this medication only for the indication prescribed. Every effort has been made to ensure that the information provided by [employer]. ('[employer]') is accurate, up-to-date, and complete, but no guarantee is made to that effect. Drug information contained herein may be time sensitive. [employer] information has been compiled for use by healthcare practitioners and consumers in the [place] and therefore [employer] does not warrant that uses outside of the [place] are appropriate, unless specifically indicated otherwise. [employer] drug information does not endorse drugs, diagnose patients or recommend therapy. [employer] drug information is an informational resource designed [...] effective or appropriate for any given patient. [employer] does not assume any responsibility for any aspect of healthcare administered with the aid of information [employer] provides. The information contained herein is not intended to cover all possible uses, directions, precautions, warnings, drug interactions, allergic reactions, or adverse effects. If you have questions about the drugs you are taking, check with your doctor, nurse or pharmacist. Copyright 9815-5303 [employer]. Version: 12.. Revision Date: 05/05/2017. potassium chloride (oral/injection) (godwin TASS ee um) Gómez Potassium 99, Klor-Con, K-Tab, Potassium Chloride Proamp What is the most important information I should know about potassium chloride? You should not use this medicine if you have high levels of potassium in your blood (hyperkalemia), or if you also take a 'potassium-sparing' diuretic. What is potassium chloride? Potassium is a mineral that is needed for several functions of your body, especially the beating of your heart. Potassium chloride is used to prevent or to treat low blood levels of potassium (hypokalemia). Potassium levels can be low as a result of a disease or from taking certain medicines, or after a prolonged illness with diarrhea or vomiting. Potassium chloride may also be used for purposes not listed in this medication guide. What should I discuss with my healthcare provider before taking potassium chloride? You should not use potassium chloride if you are allergic to it, or if: you have high levels of potassium in your blood (hyperkalemia); or you take a 'potassium-sparing' diuretic (water pill) such as amiloride, spironolactone, or triamterene. Tell your doctor if you have ever had: heart problems; high blood pressure; liver or kidney disease; a large tissue injury such as a severe burn; an electrolyte imbalance (such as low levels of calcium or magnesium in your blood); trouble swallowing; slow digestion; stomach bleeding, an ulcer, or a blockage in your stomach or intestines; an adrenal gland disorder; diabetes; or severe dehydration. Tell your doctor if you are or . How should I take potassium chloride? Follow all directions on your prescription label and read all medication guides or instruction sheets. Your doctor may occasionally change your dose. Use the medicine exactly as directed. Potassium chloride oral is taken by mouth. Potassium chloride injection is given as a slow infusion into a vein. A healthcare provider will give you this medicine by injection if you have severely low potassium levels. Tell your caregivers if you feel any burning, pain, or swelling around the IV needle when potassium chloride is injected. Take oral potassium chloride with food if the medicine upsets your stomach. Always follow directions on the medicine label about giving this medicine to a child. Take the tablet or capsule with a full glass of water. Do not crush, chew, or suck on a potassium tablet or capsule. Sucking on the pill could irritate your mouth or throat. Measure liquid medicine carefully. Use the dosing syringe provided, or use a medicine dose-measuring device (not a kitchen spoon). Mix the oral solution with least 4 ounces of water before taking it. You may need to follow a special diet while using potassium chloride. Follow all instructions of your doctor or dietitian. Learn about the foods to eat or avoid to help control your condition. Call your doctor if you have trouble swallowing a potassium chloride capsule or tablet. You may be able to dissolve the tablet in water, or mix the medicine from a capsule with soft food. Carefully follow your doctor's instructions. You may need frequent medical tests. Your heart function may need to be checked using an electrocardiograph or ECG (sometimes called an EKG). Even if you have no symptoms, tests can help your doctor determine if this medicine is effective. Some tablets are made with a shell that is not absorbed or melted in the body. Part of this shell may appear in your stool. This is normal and will not make the medicine less effective. Store at room temperature away from moisture, heat, and light. Keep the medication in a closed container. What happens if I miss a dose? Take the medicine as soon as you can, but skip the missed dose if it is almost time for your next dose. Do not take two doses at one time. What happens if I overdose? Seek emergency medical attention or call the Poison Help line at . Overdose symptoms may include stomach pain, vomiting, irregular heartbeats, chest pain, muscle weakness, loss of movement, numbness or tingling, or feeling light-headed. What should I avoid while taking potassium chloride? Do not use potassium supplements or other products that contain potassium, unless your doctor has told you to. Salt substitutes or low-salt foods often contain potassium. Read the label of any food or medicine to see if it contains potassium. What are the possible side effects of potassium chloride? Get emergency medical help if you have signs of an allergic reaction: hives; difficult breathing; swelling of your face, lips, tongue, or throat. Stop using potassium chloride and call your doctor at once if you have: severe throat irritation; chest pain, trouble breathing; pain, burning, bruising, swelling, irritation, or skin changes where the medicine was injected; stomach bloating, severe vomiting, severe stomach pain; high potassium level--nausea, weakness, tingly feeling, chest pain, irregular heartbeats, loss of movement; or signs of stomach bleeding--bloody or tarry stools, coughing up blood or vomit that looks like coffee grounds. Common side effects may include: nausea, vomiting, diarrhea; gas, stomach pain; or the appearance of a potassium chloride tablet in your stool. This is not a complete list of side effects and others may occur. Call your doctor for medical advice about side effects. You may report side effects to FDA at 2-998-CBX-2057. What other drugs will affect potassium chloride? Tell your doctor about all your other medicines, especially: medicine to prevent organ transplant rejection; a diuretic or 'water pill'; or heart or blood pressure medication. This list is not complete. Other drugs may affect potassium chloride, including prescription and bndr-dzo-rdlbrdn medicines, vitamins, and herbal products. Not all possible drug interactions are listed here. Where can I get more information? Your pharmacist can provide more information about potassium chloride. Remember, keep this and all other medicines out of the reach of children, never share your medicines with others, and use this medication only for the indication prescribed. Every effort has been made to ensure that the information provided by [employer]. [employer]') is accurate, up-to-date, and complete, but no guarantee is made to that effect. Drug information contained herein may be time sensitive. [employer] information has been compiled for use by healthcare practitioners and consumers in the [place] and therefore [employer] does not warrant that uses outside of the [place] are appropriate, unless specifically indicated otherwise. [employer] drug information does not endorse drugs, diagnose patients or recommend therapy. [employer] drug information is an informational resource designed [...] effective or appropriate for any given patient. [employer] does not assume any responsibility for any aspect of healthcare administered with the aid of information [employer] provides. The information contained herein is not intended to cover all possible uses, directions, precautions, warnings, drug interactions, allergic reactions, or adverse effects. If you have questions about the drugs you are taking, check with your doctor, nurse or pharmacist. Copyright 6039-2415 [employer]. Version: 14.01. Revision Date: 07/26/2019. Education Materials Hypokalemia Hypokalemia means a low level of potassium in the blood. This most often occurs in people who take water pills (diuretics). It can also occur because of severe vomiting or diarrhea. You may also have it if you take laxatives for long periods of time. It sometimes happens if you have low magnesium (hypomagnesemia). If you have this, your healthcare provider will treat the low magnesium first. A mild case of hypokalemia usually causes no symptoms. It is only found with blood testing. More severe potassium loss causes overall weakness, muscle or abdominal cramps, rapid or irregular heartbeats (heart palpitations), low blood pressure, and muscle weakness. Home care Take any potassium supplements as prescribed. Eat foods rich in potassium. The highest amount is found in avocado, baked potatoes, spinach, cantaloupe, cod, halibut, salmon, and scallops. White, red, or gautam beans are also very good sources. A modest amount of potassium is found in orange juice, bananas, carrots, and tomato juice. If you take certain types of diuretics, you will also need to take potassium supplements. If you take a diuretic, discuss potassium supplements with your doctor. Follow-up care Follow up with your healthcare provider for a repeat blood test within the next week, or as advised by our staff. When to seek medical advice Call your healthcare provider right away if any of the following occur: Increased weakness, fatigue, or muscle cramps Dizziness Call 911 Call 911 if any of the following occur: Irregular heartbeat, extra beats, or very fast heart rate Loss of consciousness [phone] [employer]. [address] [place] [address], [place] [address]. All rights reserved. This information is not intended as a substitute for professional medical care. Always follow your healthcare professional's instructions. Vomiting (Adult) Vomiting is a common symptom that may be due to different causes. These include gastroenteritis ( stomach flu ), food poisoning and gastritis. There are other more serious causes of vomiting which may be hard to diagnose early in the illness. Therefore, it is important to watch for the warning signs listed below. The main danger from repeated vomiting is dehydration. This is due to excess loss of water and minerals from the body. When this occurs, your body fluids must be replaced. Home care If symptoms are severe, rest at home for the next 24 hours. Because your symptoms may be from an infection, wash your hands often and well. If soap and water are not available, use alcohol-based psychology lecturer to keep from spreading the infection to others. Wash your hands for at least 20 seconds. Humming the happy birthday song twice while you wash is an easy way to make sure you've washed for 20 seconds. Wash your hands after using the toilet, before and after preparing food, before eating food, after changing a diaper, cleaning a wound, caring for a sick person, and blowing your nose, coughing, or sneezing. You should also wash your hands after caring for someone who is sick, touching pet food, or treats, and touching an animal, or animal waste. You may use acetaminophen or NSAID medicines like ibuprofen or naproxen to control fever, unless another medicine was prescribed. If you have chronic liver or kidney disease or ever had a stomach ulcer or gastrointestinal bleeding, talk with your doctor before using these medicines. Aspirin should never be used in anyone under 18 years of age who is ill with a fever. It may cause severe liver damage. Don't use NSAID medicines if you are already taking one for another condition (like arthritis) or are on aspirin (such as for heart disease, or after a stroke) Don't use tobacco and or drink alcohol, which may worsen your symptoms. If medicines for vomiting were prescribed, take as directed. Once vomiting stops, then follow these guidelines: During the first 12 to 24 hours follow the diet below: Fruit juices. Apple, grape juice, clear fruit drinks, and electrolyte replacement drinks. Beverages. Soft drinks without caffeine; mineral water (plain or flavored), decaffeinated tea and coffee. Soups. Clear broth and bouillon Desserts. Plain gelatin, ice pops, and fruit juice bars. As you feel better, you may add 6 to 8 ounces of yogurt per day. During the next 24 hours you may add the following to the above: Hot cereal, plain toast, bread, rolls, crackers Plain noodles, rice, mashed potatoes, chicken noodle or rice soup Unsweetened canned fruit such as applesauce, bananas (avoid pineapple and citrus) Limit caffeine and chocolate. No spices or seasonings except salt. During the next 24 hours: Gradually resume a normal diet, as you feel better and your symptoms lessen. Follow-up care Follow up with your healthcare provider, or as advised. When to seek medical advice Call your healthcare provider right away if any of these occur: Constant right-sided lower belly pain or increasing general belly pain Continued vomiting (unable to keep liquids down) for 24 hours Vomiting blood or coffee grounds Swollen belly Frequent diarrhea (more than 5 times a day); blood (red or black color) or mucus in diarrhea Reduced urine output or extreme thirst Weakness, dizziness or fainting Unusually drowsy or confused Fever of 100.4 F (38 C) oral or higher, or as directed Yellow color of the eyes or skin 3611-8832 [employer]. [address] [place] [address], [place] [address]. All rights reserved. This information is not intended as a substitute for professional medical care. Always follow your healthcare professional's instructions. Additional Information VACCINATE! IT SAVES LIVES! Members of the community who have not yet received the COVID-19 vaccine and would like to receive it can visit one of [facility] vaccine clinics. There are many vaccine clinic locations within the [facility]. For locations and available times, please visit [email or web address]. It is important to note that some COVID mobile vaccine clinics are held outdoors and may be canceled in rainy or stormy conditions. To learn more about pediatric vaccinations (ages 5-11), we invite you to visit the [facility] webpage. [email or web address] To learn more about the COVID-19 vaccine, we invite you to visit the [place] website for a list of frequently asked questions. [email or web address] [place] [facility] Patient Portal Access Instructions: Stay connected with your healthcare team and access your personal medical information anytime with the [place] [employer] Patient Portal. If you would like a full copy of your medical records please contact the [facility] Medical Records Department Tuesday through Tuesday between 8a.m. and 4:30p.m. Please follow the directions below to access the portal: 1.Access the email account you provided upon registration to the [facility].2.Look for an invitation email from [facility].3.Open the email and access the invitation link: Accept Invitation to [employer]4.Fill in the required lee to create your account. Sign into [email or web address] with your username and password that you [...] you will allow to register on the [employer] Patient Portal for access to your information. You can also access the [employer] Patient Portal on the [employer] leigh. Simply click on Health Records under Health Data and then click on the [employer] logo. HOW TO SAFELY DISPOSE OF PRESCRIPTION [...] Call your local pharmacy or go to [email or web address] to find one close to you.3.Make use of household items: Use cat litter or old coffee grounds to dispose medications if other options are not available. Mix your drugs with these household products, seal them in an airtight container and throw it into the garbage. Call [facility]: [phone] to be sure your drugs can be [...] a CHART COPY Signatures Patient Education Materials Hypokalemia Vomiting (Adult) Medication Leaflets metoclopramide (oral/injection), potassium chloride (oral/injection) My discharge plan and instructions have been reviewed and explained to me and I,KAMALA GRAY understand my current condition and have read and understand these discharge instructions. I have received a written copy of the plan/instructions. If I have questions, I am aware that I should contact my doctor. 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 Subjective Kamala Gray is a 51 year old female. HPI Patient presents with a chief complaint of trouble hearing out of her right ear. She had been seen by [place] [facility] and had some wax flushed out of her ear and prescribed amoxicillin as well as Debrox. She states she just feels like she cannot hear out of that ear. Denies any significant pain. No drainage out of the ear. No fevers or chills. No cough or congestion. No sore throat. No recent swimming. Review of Systems Constitutional: Negative. HENT: Positive for hearing loss. Negative for congestion, facial swelling, postnasal drip, rhinorrhea and sore throat. Respiratory: Negative. Cardiovascular: Negative. Gastrointestinal: Negative. Genitourinary: Negative. Musculoskeletal: Negative. All other systems reviewed and are negative. PAST MEDICAL HISTORY Diagnosis Date Asthma with COPD (HCC) Celiac disease CKD (chronic kidney disease) Diabetes mellitus type 2 (HCC) Gout Hyperlipidemia Hypertension Hypothyroidism Microcytic anemia Obesity, Class III, BMI 40-49.9 (morbid obesity) (HCC) Renal calculi Current Outpatient Medications Medication Sig Dispense Refill topiramate (TOPAMAX) 100 mg tablet Take 100 mg by mouth twice daily. TRELEGY ELLIPTA 100-62.5-25 mcg INHALE 1 PUFF DAILY with good oral care Syringe, Disposable, 3 mL syrg use as direct with medication five days per week 244.9 60 Syringe 1 Insulin Syringe-Needle U-100 (BD ULTRAFINE INSULIN) 1 mL 31 x 5/16 syrg use twice daily with injections five days per week 244.9 120 Syringe 1 Needle, Disp, 25 G 25 x 1 ndle use as direct to draw up medication five days per week 244.9 60 Each 1 Sodium Chloride 0.9 % soln Reconstitute 1 ml with 100 mcg of injectable Levothyoxine five days per week 50 mL 0 COMPOUNDED PRESCRIPTION Inject subcutaneously. Levothyroxine 100 mcg injection. Reconstitute 100 mcg vial with 1 ml normal saline. Inject 1 ml 5 days per week 25 Vial 3 levothyroxine INTRAVEN. injection Reconstitute 500 mcg vial with 2 ml normal saline. Inject SQ 1 ml (250mcg) every 3 days 11 Each 11 levothyroxine (SYNTHROID) 300 mcg tablet Take by mouth. Not taking 120 tablet 11 METOPROLOL SUCCINATE ER 100 MG 24 HR TAB Take one(1) tablet daily. 0 HYDROCHLOROTHIAZIDE 12.5 MG CAP Take one(1) tablet daily. 0 acetaminophen(TYLENOL 325 MG TAB) 0 fluticasone (FLONASE) 50 mcg/actuation nasal spray Use 2 Sprays in each nostril once daily. Rinse mouth after use. 1 Each 0 trltkvio-cocvpurnm-xrkvygelfluvrl (CORTISPORIN) 3.5-10,000-1 mg/mL-unit/mL-% otic suspension Use 3 Drops in the right ear four times daily for 7 days. 10 mL 0 loratadine (CLARITIN) 10 mg tablet Take 1 tablet by mouth once daily for 7 days. 7 tablet 0 No current facility-administered medications for this visit. No past surgical history on file. No family history on file. Social History Tobacco Use Smoking status: Never Smokeless tobacco: Never Substance Use Topics Alcohol use: No Drug use: Never Objective BP 130/72 Pulse 78 Temp 36.3 C (97.4 F) Resp 16 Wt 129.2 kg (284 lb 12.8 oz) LMP (LMP Unknown) SpO2 98% Physical Exam Vitals reviewed. Constitutional: Appearance: Normal appearance. HENT: Head: Normocephalic and atraumatic. Right Ear: External ear normal. Left Ear: Tympanic membrane, ear canal and external ear normal. Ears: Comments: Right ear exam reveals mild erythema of the EAC. There is a serous appearing DM. Cardiovascular: Rate and Rhythm: Normal rate and regular rhythm. Heart sounds: Normal heart sounds. Pulmonary: Effort: Pulmonary effort is normal. Breath sounds: Normal breath sounds. Musculoskeletal: Cervical back: Neck supple. Lymphadenopathy: Cervical: No cervical adenopathy. Skin: General: Skin is warm and dry. Neurological: Mental Status: She is alert. Assessment and Plan ASSESSMENT/PLAN: 1. Middle ear effusion, right - ICD9: 381.4, ICD10: H65.91 (primary diagnosis) - flonase and claritin rx. Follow up with ent if not improving. 2. Irritation of external ear canal, right - ICD9: 380.89, ICD10: H61.891 Cortisporin drops Dion Escobar PA-C documented in this encounter [facility] 10-17-2021 History of Present illness Narrative Patient presents with: Diarrhea: vomiting and sob x 14 days HPI: Feeling sick for about 2 week. Started vomiting last night Positive symptoms: Shortness of breath, Malaise, Fatigue, Vomiting, Diarrhea, Chest tightness, Nasal Congestion, bad Chills, Body Aches, Malaise, abdominal pain, difficulty smelling Negative symptoms: blood in stool/emesis, OTC: none. She has not had known COVID illness. PAST MEDICAL HISTORY Diagnosis Date Asthma with COPD (HCC) Celiac disease CKD (chronic kidney disease) Diabetes mellitus type 2 (HCC) Gout Hyperlipidemia Hypertension Hypothyroidism Microcytic anemia Obesity, Class III, BMI 40-49.9 (morbid obesity) (HCC) Renal calculi MEDICATIONS: Current Outpatient Medications Medication Sig topiramate (TOPAMAX) 100 mg tablet Take 100 mg by mouth twice daily. TRELEGY ELLIPTA 100-62.5-25 mcg INHALE 1 PUFF DAILY with good oral care Insulin Syringe-Needle U-100 (BD ULTRAFINE INSULIN) 1 mL 31 x 5/16 syrg use twice daily with injections five days per week 244.9 Needle, Disp, 25 G 25 x 1 ndle use as direct to draw up medication five days per week 244.9 COMPOUNDED PRESCRIPTION Inject subcutaneously. Levothyroxine 100 mcg injection. Reconstitute 100 mcg vial with 1 ml normal saline. Inject 1 ml 5 days per week levothyroxine INTRAVEN. injection Reconstitute 500 mcg vial with 2 ml normal saline. Inject SQ 1 ml (250mcg) every 3 days levothyroxine (SYNTHROID) 300 mcg tablet Take by mouth. Not taking METOPROLOL SUCCINATE ER 100 MG 24 HR TAB Take one(1) tablet daily. HYDROCHLOROTHIAZIDE 12.5 MG CAP Take one(1) tablet daily. acetaminophen(TYLENOL 325 MG TAB) Syringe, Disposable, 3 mL syrg use as direct with medication five days per week 244.9 Sodium Chloride 0.9 % soln Reconstitute 1 ml with 100 mcg of injectable Levothyoxine five days per week No current facility-administered medications for this visit. ALLERGIES: ALLERGIES Allergen Reactions Asa [Salicylates] VITALS: BP 122/84 Pulse 66 Temp 36.7 C (98 F) Resp 16 Wt 126.6 kg (279 lb) SpO2 99% PHYSICAL EXAM: GEN: ill appearing, lying down in dark exam room. Given assistance by ground crewman mission support while awaiting provider evaluation. Accompanied by her sister. Neck: supple, HEART: regular rate and rhythm, no murmurs LUNGS: clear to auscultation, no wheezes or crackles, no increased WOB ABD: exam limited by body habitus, Soft, general discomfort, no masses ASSESSMENT/PLAN: 1. Nausea vomiting and diarrhea - ICD9: 787.91, 787.01, ICD10: R11.2, R19.7 (primary diagnosis) 2. Malaise and fatigue - ICD9: 780.79, ICD10: R53.81, R53.83 Possible COVID illness. Probable dehydration. Advised further evaluation and treatment in the emergency room. Her sister will take her to [facility]. She feels she is too sick sit up and must lie down while waiting at the ER. She declines transport by EMS. Report sent to [facility] by ER passport. Jac Mullen MD documented in this encounter [facility] 06-10-2021 Hospital Discharge instructions Patient Education 06/10/2021 11:34:53 Spinal Cord Stimulator Implantation, Care After Spinal Cord Stimulator Implant, Care After This sheet gives you information about how to care for yourself after your procedure. Your health care provider may also give you more specific instructions. If you have problems or questions, contact your health care provider. What can I expect after the procedure? After the procedure, it is common to have: Mild pain, bruising, and swelling. Headaches. Soreness in the back. Follow these instructions at home: Incision care Follow instructions from your health care provider about how to take care of your incisions. Make sure you: ?Wash your hands with soap and water before you change your bandages (dressings). If soap and water are not available, use hand psychology lecturer. ?Change your dressings as told by your health care provider. ?Leave stitches (sutures), skin glue, or adhesive strips in place. These skin closures may need to stay in place for 2 weeks or longer. If adhesive strip edges start to loosen and curl up, you may trim the loose edges. Do not remove adhesive strips completely unless your health care provider tells you to do that. Check your incision areas every day for signs of infection. Check for: ?Redness, more swelling, or more pain. ?More fluid or blood. ?Warmth. ?Pus or a bad smell. Activity Ask your health care provider what activities are safe for you during recovery. Do not do any of the following until your health care provider approves: ?Drive. ?Activity that requires a lot of energy, including exercise and sports. ?Lift anything that is heavier than 5 lb (2.3 kg), or the limit that you are told. ?Engage in sexual activity. ?Lift your arms above your head. ?Sleep on your stomach, if your device was placed in your abdomen. ?Bend, twist, stretch, or reach for things. Bathing Do not take baths, swim, or use a hot tub until your health care provider approves. Ask your health care provider if you may take showers. You may only be allowed to take sponge baths. Safety Devices that sends out wireless signals may affect your stimulator. If directed by your health care provider, avoid the following: ?MRI and ultrasound tests. ?Metal detectors. ?Anti-theft devices. ?Generators or power lines. Always carry your device ID card with you. Tell all health care providers who care for you that you have a spinal cord stimulator. This is important information that could affect the medical treatment that you receive. General instructions Work with your health care provider to adjust your settings as needed for pain control. Adjusting settings may take some time. Most stimulators can be controlled with a remote. Take lude-fdn-kfbkjua and prescription medicines only as told by your health care provider. Do not use any products that contain nicotine or tobacco, such as cigarettes and e-cigarettes. If you need help quitting, ask your health care provider. Drink enough fluid to keep your urine pale yellow. Keep all follow-up visits as told by your health care provider. This is important. Contact a health care provider if you have: A fever. Severe pain, and medicines do not help. More fluid or blood coming from your incisions. Headaches that do not go away. Get help right away if: You have redness, more swelling, or more pain around your incisions. Your incision area feels warm to the touch. You have pus or a bad smell coming from your incision area. You have chest pain or problems breathing. You have sudden and severe back pain. You have weakness or sudden muscle tightening (spasms) in your legs. You are not able to control when you urinate or have a bowel movement (incontinence). Summary After implantation of a spinal cord stimulator, mild pain, muscle soreness, headaches, and bruising are common. Follow instructions from your health care provider about incision care, bathing, medicines, and activity. Work with your health care provider to adjust your settings as needed for pain control. Adjusting settings may take some time. Most stimulators can be controlled with a remote. This information is not intended to replace advice given to you by your health care provider. Make sure you discuss any questions you have with your health care provider. Document Released: 03/30/2018 Document Revised: 06/07/2019 Document Reviewed: 03/30/2018 [employer] Patient Education 2019 [employer] 06/10/2021 11:34:28 Monitored Anesthesia Care, Care After Monitored Anesthesia Care, Care After These instructions provide you with information about caring for yourself after your procedure. Your health care provider may also give you more specific instructions. Your treatment has been planned according to current medical practices, but problems sometimes occur. Call your health care provider if you have any problems or questions after your procedure. What can I expect after the procedure? After your procedure, you may: Feel sleepy for several hours. Feel clumsy and have poor balance for several hours. Feel forgetful about what happened after the procedure. Have poor judgment for several hours. Feel nauseous or vomit. Have a sore throat if you had a breathing tube during the procedure. Follow these instructions at home: For at least 24 hours after the procedure: Have a responsible adult stay with you. It is important to have someone help care for you until you are awake and alert. Rest as needed. Do not: ?Participate in activities in which you could fall or become injured. ?Drive. ?Use heavy machinery. ?Drink alcohol. ?Take sleeping pills or medicines that cause drowsiness. ?Make important decisions or sign legal documents. ?Take care of children on your own. Eating and drinking Follow the diet that is recommended by your health care provider. If you vomit, drink water, juice, or soup when you can drink without vomiting. Make sure you have little or no nausea before eating solid foods. General instructions Take gxzf-ivz-kzdteuh and prescription medicines only as told by your health care provider. If you have sleep apnea, surgery and certain medicines can increase your risk for breathing problems. Follow instructions from your health care provider about wearing your sleep device: ?Anytime you are sleeping, including during daytime naps. ?While taking prescription pain medicines, sleeping medicines, or medicines that make you drowsy. If you smoke, do not smoke without supervision. Keep all follow-up visits as told by your health care provider. This is important. Contact a health care provider if: You keep feeling nauseous or you keep vomiting. You feel light-headed. You develop a rash. You have a fever. Get help right away if: You have trouble breathing. Summary For several hours after your procedure, you may feel sleepy and have poor judgment. Have a responsible adult stay with you for at least 24 hours or until you are awake and alert. This information is not intended to replace advice given to you by your health care provider. Make sure you discuss any questions you have with your health care provider. Document Released: 06/06/2016 Document Revised: 05/15/2018 Document Reviewed: 06/06/2016 [employer] Patient Education 2020 [employer]. 06/10/2021 11:34:26 Nausea and Vomiting, Adult, Lqyt-rt-Xqqn Nausea and Vomiting, Adult Nausea is feeling sick to your stomach or feeling that you are about to throw up (vomit). Vomiting is when food in your stomach is thrown up and out of the mouth. Throwing up can make you feel weak. It can also make you lose too much water in your body (get dehydrated). If you lose too much water in your body, you may: Feel tired. Feel thirsty. Have a dry mouth. Have cracked lips. Go pee (urinate) less often. Older adults and people with other diseases or a weak body defense system (immune system) are at higher risk for losing too much water in the body. If you feel sick to your stomach and you throw up, it is important to follow instructions from your doctor about how to take care of yourself. Follow these instructions at home: Watch your symptoms for any changes. Tell your doctor about them. Follow these instructions to care for yourself at home. Eating and drinking Take an ORS (oral rehydration solution). This is a drink that is sold at pharmacies and stores. Drink clear fluids in small amounts as you are able, such as: ?Water. ?Ice chips. ?Fruit juice that has water added (diluted fruit juice). ?Low-calorie sports drinks. Eat bland, ltlp-sv-trfljt foods in small amounts as you are able, such as: ?Bananas. ?Applesauce. ?Rice. ?Low-fat (lean) meats. ?[place]. ?Crackers. Avoid drinking fluids that have a lot of sugar or caffeine in them. This includes energy drinks, sports drinks, and soda. Avoid alcohol. Avoid spicy or fatty foods. General instructions Take bhcb-rps-ppmjfad and prescription medicines only as told by your doctor. Drink enough fluid to keep your pee (urine) pale yellow. Wash your hands often with soap and water. If you cannot use soap and water, use hand psychology lecturer. Make sure that all people in your home wash their hands well and often. Rest at home while you get better. Watch your condition for any changes. Take slow and deep breaths when you feel sick to your stomach. Keep all follow-up visits as told by your doctor. This is important. Contact a doctor if: Your symptoms get worse. You have new symptoms. You have a fever. You cannot drink fluids without throwing up. You feel sick to your stomach for more than 2 days. You feel light-headed or dizzy. You have a headache. You have muscle cramps. You have a rash. You have pain while peeing. Get help right away if: You have pain in your chest, neck, arm, or jaw. You feel very weak or you pass out (faint). You throw up again and again. You have throw up that is bright red or looks like black coffee grounds. You have bloody or black poop (stools) or poop that looks like tar. You have a very bad headache, a stiff neck, or both. You have very bad pain, cramping, or bloating in your belly (abdomen). You have trouble breathing. You are breathing very quickly. Your heart is beating very quickly. Your skin feels cold and clammy. You feel confused. You have signs of losing too much water in your body, such as: ?Dark pee, very little pee, or no pee. ?Cracked lips. ?Dry mouth. ?Sunken eyes. ?Sleepiness. ?Weakness. These symptoms may be an emergency. Do not wait to see if the symptoms will go away. Get medical help right away. Call your local emergency services (911 in the [place] Do not drive yourself to the hospital. Summary Nausea is feeling sick to your stomach or feeling that you are about to throw up (vomit). Vomiting is when food in your stomach is thrown up and out of the mouth. Follow instructions from your doctor about eating and drinking to keep from losing too much water in your body. Take pghb-viu-bpqqxfy and prescription medicines only as told by your doctor. Contact your doctor if your symptoms get worse or you have new symptoms. Keep all follow-up visits as told by your doctor. This is important. This information is not intended to replace advice given to you by your health care provider. Make sure you discuss any questions you have with your health care provider. Document Released: 08/02/2008 Document Revised: 06/08/2019 Document Reviewed: 07/25/2018 [employer] Program Patient Education 2020 [employer]. Follow Up Care 06/05/2021 09:27:39 With:IRMA JEWELL Address: [address] [place] [address], [address] [facility] [place] [phone] Business (1) When: Unknown Comments:JUNE 15 2021 3PM [facility] Evaluation + Plan note Future Appointments Appointment Date:11/09/2021 01:00:00 PM Scheduled Provider: Location:[facility] Appointment Type:DB Diabetic Individual Visit Appointment Date:11/19/2021 02:00:00 PM Scheduled Provider:YSABEL LUTZ APRN, CNP Location:[facility] Appointment Type:PC OV Follow Up Future Scheduled TestsIron Level 11/18/21Thyroid Stimulating Hormone 11/18/21Free T4 11/18/21Uric Acid 11/18/21A1C Hemoglobin 11/18/21Complete Blood Count 11/18/21Lipid Profile 11/18/21Microalbumin Level Urine 11/18/21Vitamin D Level 11/18/21Complete Metabolic Panel 11/18/21 [facility] Evaluation + Plan note Future Appointments Appointment Date:12/22/2021 02:00:00 PM Scheduled Provider:YSABEL LUTZ APRN, CNP Location:[facility] Appointment Type:PC OV Follow Up Appointment Date:02/16/2022 03:00:00 PM Scheduled Provider:YSABEL LUTZ APRN, CNP Location:[facility] Appointment Type:PC OV Follow Up Appointment Date:05/10/2022 01:00:00 PM Scheduled Provider: Location:[facility] Appointment Type:DB Diabetic Individual Visit Appointment Date:05/20/2022 03:00:00 PM Scheduled Provider:YSABEL LUTZ APRN, CNP Location:[facility] Appointment Type:PC OV Follow Up Future Scheduled TestsRenin, Plasma 05/19/22Renin, Plasma 02/18/22Iron Level 05/19/22Iron Level 02/18/22Thyroid Stimulating Hormone 05/19/22Thyroid Stimulating Hormone 02/18/22Free T4 05/19/22Free T4 02/18/22Vitamin B12 Level 05/19/22Vitamin B12 Level 02/18/22A1C Hemoglobin 05/19/22A1C Hemoglobin 02/18/22Complete Blood Count 05/19/22Complete Blood Count 02/18/22Free T3 05/19/22Free T3 02/18/22Lipid Profile 05/19/22Lipid Profile 02/18/22Microalbumin Level Urine 11/18/21Microalbumin Level Urine 05/19/22Microalbumin Level Urine 02/18/22PTH, Intact 05/19/22PTH, Intact 02/18/22Vitamin D Level 05/19/22Vitamin D Level 02/18/22Complete Metabolic Panel 05/19/22Complete Metabolic Panel 02/18/22TIBC 05/19/22TIBC 02/18/22 [facility] Evaluation + Plan note Future Appointments Appointment Date:11/22/2022 01:40:00 PM Scheduled Provider:YSABEL LUTZ APRN, CNP Location:[facility] Appointment Type:PC OV Appointment Date:02/04/2023 11:00:00 AM Scheduled Provider: [facility] App[facility] Type:DB Diabetic Individual Visit (AOH) Future Scheduled TestsIron Level 11/20/22Thyroid Stimulating Hormone 11/20/22Free T4 11/20/22A1C Hemoglobin 11/20/22Complete Blood Count 11/20/22Lipid Profile 11/20/22Albumin/Creatinine Ratio, Random Urine 11/20/22Microalbumin Level Urine 05/17/22Vitamin D Level 11/20/22Complete Metabolic Panel 11/20/22TIBC 11/20/22 [facility] Evaluation + Plan note Future Appointments Appointment Date:02/04/2023 11:00:00 AM Scheduled Provider: Location:[facility] Appointment Type:DB Diabetic Individual Visit (AOH) Future Scheduled TestsIron Level 11/20/22Thyroid Stimulating Hormone 11/20/22Free T4 11/20/22A1C Hemoglobin 11/20/22Complete Blood Count 11/20/22Lipid Profile 11/20/22Albumin/Creatinine Ratio, Random Urine 11/20/22Microalbumin Level Urine 05/17/22Vitamin D Level 11/20/22Complete Metabolic Panel 11/20/22TIBC 11/20/22 [facility] Evaluation + Plan note Future Appointments Appointment Date:02/04/2023 11:00:00 AM Scheduled Provider: Location:[facility] Appointment Type:DB Diabetic Individual Visit (AOH) Diagnostic Tests PendingUrine Culture 10/03/22 Future Scheduled TestsIron Level 11/20/22Thyroid Stimulating Hormone 11/20/22Free T4 11/20/22A1C Hemoglobin 11/20/22Complete Blood Count 11/20/22Lipid Profile 11/20/22Albumin/Creatinine Ratio, Random Urine 11/20/22Microalbumin Level Urine 05/17/22Vitamin D Level 11/20/22Complete Metabolic Panel 11/20/22TIBC 11/20/22 [facility] Evaluation + Plan note Future Appointments Appointment Date:02/04/2023 11:00:00 AM Scheduled Provider: Location:[facility] Appointment Type:DB Diabetic Individual Visit (AOH) Diagnostic Tests PendingUrine Culture 12/24/22 Future Scheduled TestsIron Level 11/20/22Thyroid Stimulating Hormone 11/20/22Free T4 11/20/22A1C Hemoglobin 11/20/22Complete Blood Count 11/20/22Lipid Profile 11/20/22Albumin/Creatinine Ratio, Random Urine 11/20/22Microalbumin Level Urine 05/17/22Vitamin D Level 11/20/22Complete Metabolic Panel 11/20/22TIBC 11/20/22 [facility] Evaluation + Plan note Future Appointments Appointment Date:02/04/2023 11:00:00 AM Scheduled Provider: Location:[facility] Appointment Type:DB Diabetic Individual Visit (AOH) Diagnostic Tests PendingUrine Culture 01/23/23 Future Scheduled TestsIron Level 11/20/22Thyroid Stimulating Hormone 11/20/22Free T4 11/20/22A1C Hemoglobin 11/20/22Complete Blood Count 11/20/22Lipid Profile 11/20/22Albumin/Creatinine Ratio, Random Urine 11/20/22Microalbumin Level Urine 05/17/22Vitamin D Level 11/20/22Complete Metabolic Panel 11/20/22TIBC 11/20/22 [facility]* Diagnosis Middle ear effusion, right- Primary Irritation of external ear canal, right [facility]* Diagnosis Viral URI with cough- Primary Acute upper respiratory infections of unspecified site Exacerbation of asthma, unspecified asthma severity, unspecified whether persistent [facility]* Diagnosis Post-nasal drainage- Primary Unspecified sinusitis (chronic) Neck pain Cervicalgia [facility]* Diagnosis Cellulitis of skin- Primary Cellulitis and abscess of unspecified site [facility]* Diagnosis Fall, initial encounter- Primary Unspecified site of sprain and strain [facility]* Diagnosis Injury of head, initial encounter- Primary [facility] Diagnosis Headache, unspecified headache type- Primary Nausea Nausea alone [facility]* Diagnosis Intertrigo- Primary Other specified erythematous condition Skin sore Unspecified disorder of skin and subcutaneous tissue Bronchitis Bronchitis, not specified as acute or chronic [facility]* Diagnosis Acute midline low back pain without sciatica- Primary Fatigue, unspecified type [facility]* Diagnosis Headache, unspecified headache type- Primary [facility]* Diagnosis Leg cramps- Primary Cramp of limb [facility] Narrative No data available for this section [facility] Hospital Discharge instructions No data available for this section [facility] Progress note No data available for this section [facility] Reason for referral (narrative)* Diagnostic Procedure Only (Urgent) - Closed Specialty Diagnoses / Procedures Referred By Contac t Referred To Contact XR IMAGING Diagnoses Fall, initial encounter Procedures XR RIBS/CHEST 3V AP RIB/OBLS/CXR LEFT RADEX RIBS UNI W/POSTEROANT CH MINIMUM 3 VIEWS Dion Escobar PA-C [address] [place] [address] Xr Imaging Referral ID Status Reason Start Date Expiration Date V isits Requested Visits Authorized [id number] Closed Auto-Generate d Referral 07/28/2022 08/27/2023 1 1 * Diagnostic Procedure Only (Urgent) - Closed Specialty Diagnoses / Procedures Referred By Contac t Referred To Contact XR IMAGING Diagnoses Fall, initial encounter Procedures XR LUMBAR GENERAL 3V AP/LAT/L5-S1 RADEX SPINE LUMBOSACRAL 2/3 VIEWS Dion Escobar PA-C [address] [place] [address] Xr Imaging Referral ID Status Reason Start Date Expiration Date V isits Requested Visits Authorized [id number] Closed Auto-Generate d Referral 07/28/2022 08/27/2023 1 1 * Diagnostic Procedure Only (Urgent) - Closed Specialty Diagnoses / Procedures Referred By Contac t Referred To Contact XR IMAGING Diagnoses Fall, initial encounter Procedures XR CERV OTHER 4V AP/LAT/OBL RADEX SPINE CERVICAL 4 OR 5 VIEWS Dion Escobar PA-C [address] [place] [address] Xr Imaging Referral ID Status Reason Start Date Expiration Date V isits Requested Visits Authorized [id number] Closed Auto-Generate d Referral 07/28/2022 08/27/2023 1 1 * Diagnostic Procedure Only (Urgent) - Closed Specialty Diagnoses / Procedures Referred By Jose Miguel armenta Referred To Contact XR IMAGING Diagnoses Fall, initial encounter Procedures XR FOREARM GENERAL 2V AP/LAT LEFT RADEX FOREARM 2 VIEWS Dion Escobar PA-C [address] [place] [address] Xr Imaging Referral ID Status Reason Start Date Expiration Date V isits Requested Visits Authorized [id number] Closed Auto-Generate d Referral 07/28/2022 08/27/2023 1 1 [facility] note* YVAN Michael: PERFORM Event Display: Patient Summary Documents Authored Date: [id number] [facility] Reason for Referral Status Reason Specialty Diagnoses / Procedures Re ferred By Contact Referred To Contact Open Pulmonary Disease Diagnoses Dyspnea, unspecified type Procedures Full PFT Study With Bronchodilator Mariela Vasquez MD [address] [address] Assessments Diagnosis Dyspnea, unspecified type Health Concerns [...] Care Team (unrecognized sect ion and content) Ammonia Operator Relationship Specialty Start Date End Date Milan Cervantes [address] [place] [id number] PCP - General 11/10/06 Ammonia Operator Relationship Specialty Start Date End Date Ysabel Lutz, HOSPITAL COORDINATOR [address] [place] [address] PCP - General Family Medicine 02/25/22 Ammonia Operator Relationship Specialty Start Date End Date Ysabel Lutz, HOSPITAL COORDINATOR [address] [facility], [place] [address] PCP - General Family Medicine 02/25/22 Ammonia Operator Relationship Specialty Start Date End Date Ysabel Lutz, HOSPITAL COORDINATOR [address] [place] [address] PCP - General Family Medicine 02/25/22 Ammonia Operator Relationship Specialty Start Date End Date Ysabel Lutz, HOSPITAL COORDINATOR [address] [place] [address] PCP - General Family Medicine 02/25/22 Ammonia Operator Relationship Specialty Start Date End Date Clifton Sanchez Chi [address] [place] [address] PCP - General Gerontology 07/28/22 Ammonia Operator Relationship Specialty Start Date End Date Daniel Clifton Chi [address] [place], [place] [id number] PCP - General Gerontology 07/28/22 Ammonia Operator Relationship Specialty Start Date End Date Clifton Sanchez Chi [address] [place], [place] [address] PCP - General Gerontology 07/28/22 Ammonia Operator Relationship Specialty Start Date End Date Aram Johnson DO [address] [place] [address] PCP - General Family Medicine 12/14/22 Ammonia Operator Relationship Specialty Start Date End Date Aram Johnson DO [address] [place] [address] PCP - General Family Medicine 12/14/22 Ammonia Operator Relationship Specialty Start Date End Date Aram Johnson DO [address] [place] [address] PCP - General Family Medicine 12/14/22 Ammonia Operator Relationship Specialty Start Date End Date Aram Johnson DO [address] [place] [address] PCP - General Family Medicine 12/14/22 Ammonia Operator Relationship Specialty Start Date End Date Aram Johnson DO [address] [place], [place] [address] PCP - General Family Medicine 12/14/22 Source Comments (unrecognize d section and content) In the event this informatio n is protected by the Federal Confidentiality of Alcohol and Drug Abuse Patient Records regulations: The Federal rules restrict any use of the information to criminally investigate or prosecute any alcohol or drug abuse patient.[facility] the event this information is protected by the Federal Confidentiality of Alcohol and Drug Abuse Patient Records regulations: The Federal rules restrict any use of the information to criminally investigate or prosecute any alcohol or drug abuse patient.[facility]In the event this information is protected by the Federal Confidentiality of Alcohol and Drug Abuse Patient Records regulations: The Federal rules restrict any use of the information to criminally investigate or prosecute any alcohol or drug abuse patient.[facility] the event this information is protected by the Federal Confidentiality of Alcohol and Drug Abuse Patient Records regulations: The Federal rules restrict any use of the information to criminally investigate or prosecute any alcohol or drug abuse patient.[facility] the event this information is protected by the Federal Confidentiality of Alcohol and Drug Abuse Patient Records regulations: The Federal rules restrict any use of the information to criminally investigate or prosecute any alcohol or drug abuse patient.[facility] the event this information is protected by the Federal Confidentiality of Alcohol and Drug Abuse Patient Records regulations: The Federal rules restrict any use of the information to criminally investigate or prosecute any alcohol or drug abuse patient.[facility]In the event this information is protected by the Federal Confidentiality of Alcohol and Drug Abuse Patient Records regulations: The Federal rules restrict any use of the information to criminally investigate or prosecute any alcohol or drug abuse patient.[facility]In the event this information is protected by the Federal Confidentiality of Alcohol and Drug Abuse Patient Records regulations: The Federal rules restrict any use of the information to criminally investigate or prosecute any alcohol or drug abuse patient.[facility]In the event this information is protected by the Federal Confidentiality of Alcohol and Drug Abuse Patient Records regulations: The Federal rules restrict any use of the information to criminally investigate or prosecute any alcohol or drug abuse patient.[facility]In the event this information is protected by the Federal Confidentiality of Alcohol and Drug Abuse Patient Records regulations: The Federal rules restrict any use of the information to criminally investigate or prosecute any alcohol or drug abuse patient.[facility]In the event this information is protected by the Federal Confidentiality of Alcohol and Drug Abuse Patient Records regulations: The Federal rules restrict any use of the information to criminally investigate or prosecute any alcohol or drug abuse patient.[facility]healthIn the event this information is protected by the Federal Confidentiality of Alcohol and Drug Abuse Patient Records regulations: The Federal rules restrict any use of the information to criminally investigate or prosecute any alcohol or drug abuse patient.[facility]In the event this information is protected by the Federal Confidentiality of Alcohol and Drug Abuse Patient Records regulations: The Federal rules restrict any use of the information to criminally investigate or prosecute any alcohol or drug abuse patient.[facility]In the event this information is protected by the Federal Confidentiality of Alcohol and Drug Abuse Patient Records regulations: The Federal rules restrict any use of the information to criminally investigate or prosecute any alcohol or drug abuse patient.[facility]healthIn the event this information is protected by the Federal Confidentiality of Alcohol and Drug Abuse Patient Records regulations: The Federal rules restrict any use of the information to criminally investigate or prosecute any alcohol or drug abuse patient.[facility] Reason for Visit (unrecogniz ed section and [...] Team Personnel Name: YSABEL LUTZ APRN - HOSPITAL COORDINATOR Position: P4 Advanced Practice Nurse Med Service: Employed Provider Member Role: Primary Care Physician Address: Address: [address] [facility] [place] [address] [place] Care Team Related Persons Name: MANOJ NOLASCO INFORMATION SOURCE (unrecogn ized section and content) DATE CREATED AUTHOR AUTHOR'S CRISPIN ATION 03/08/2023 [facility] ([place]) FOR RECORDS PERTAINING TO PATIENTS WHO ARE [...] BE BASED ON THE PRIMARY CLINICAL RECORDS. [employer] provides no warranty or guarantee of the accuracy or completeness of information in this document.
== END 2023-03-08 18:50 | disposition home or self-care (01) ==
PROVIDERS: Physician Assistant; Emergency Provider Emergency Medicine; PCP Family Medicine; Visit Provider Emergency Medicine
DX: S81.801A Unspecified open wound, right lower leg, initial encounter (principal); J44.9 Chronic obstructive pulmonary disease, unspecified; E66.01 Morbid (severe) obesity due to excess calories; Z68.43 Body mass index [BMI] 50.0-59.9, adult; X58.XXXA Exposure to other specified factors, initial encounter; I12.9 Hypertensive chronic kidney disease with stage 1 through stage 4 chronic kidney disease, or unspecified chronic kidney disease; N18.9 Chronic kidney disease, unspecified; Z79.2 Long term (current) use of antibiotics; Z79.51 Long term (current) use of inhaled steroids; Z79.899 Other long term (current) drug therapy
CPT/HCPCS: 80048; 85025; 87070; 87077; 87186; 87205; 96365; 99283; J7050; A4216

== ENCOUNTER 2023-03-21 18:22 | Emergency (ER) | payer MEDICARE, MEDICAID, SELFPAY ==
[2023-03-21 18:23] VITALS: BP 158/88; PULSE 88; RESP 16; TEMP 35.9; O2SAT 98; BMI 53.3
--- NOTE | 2023-03-21 18:44 | ED.VIS.FALL ---
HPI HPI - Fall History of Present Illness Chief Complaint: Fall Informant: patient Occured/Mechanism Occurred: Today Mechanism/Context: Yes slip Pain/Injury Pain Location: head, face, neck and lower extremity (Right knee) Quality of Pain: Sharp Worsened by: Lights, movement of right knee Relieved by: Nothing Associated Symptoms Associated Symptoms: Negative for Parasthesias, Weakness, Loss of function, Loss of consciousness or Amnesia Narrative Narrative: Patient presents after a fall that occurred today. Patient slipped on ice and fell. Patient thinks she hit her head. Patient and family deny any loss of consciousness. Patient complains of pain in her right knee as well. Patient describes her pain as sharp. Patient states it is worse with bright lights. Patient states nothing seems to help with her pain. Patient denies any paresthesias or weakness. Patient states her knee pain is worse with movement. PFSH PFS Medical History Abnormal glucose Anemia Anxiety Arthritis Asthma BiPAP (biphasic positive airway pressure) dependence Cardiac murmur Cardiology follow-up encounter Celiac disease Chest pain Chronic kidney disease COPD (chronic obstructive pulmonary disease) Depression Diabetes mellitus Dietary restriction Difficulty swallowing Dyspnea on exertion Fall GERD (gastroesophageal reflux disease) Gout History of chronic back pain History of echocardiogram History of edema History of pain when walking History of stress test Hydronephrosis Hyperlipidemia Hypersomnia Hypertension Hypothyroidism Injury of head and neck Iron deficiency anemia Leg cramps Microcytic anemia Migraine headache Morbid obesity with BMI of 40.0-44.9, adult Non-smoker Noncompliance DAVY treated with BiPAP Post-menopausal Pulmonary embolism Restless leg syndrome Scalp hematoma Shortness of breath on exertion Syncope Thyroid disease UTI (urinary tract infection) Vitamin B12 deficiency Vitamin D deficiency Wears glasses Home Medications citalopram 40 mg tablet 40 mg PO DAILY DEPRESSION/ANXIETY 07/27/19 [History Last Taken 02/10/23] budesonide-formoterol HFA 160 mcg-4.5 mcg/actuation aerosol inhaler (Symbicort) 2 puff inhalation BID COPD 04/02/20 [History Last Taken 02/10/23] rimegepant 75 mg disintegrating tablet (Nurtec ODT) 75 mg PO ONCE PRN MIGRAINES 06/19/20 [History Last Taken 05/04/22] fluticasone fur. 100 mcg-umeclid 62.5 mcg-vilant 25 mcg inhalat.powder (Trelegy Ellipta) 1 ea inhalation DAILY COPD 08/14/20 [History Last Taken 02/10/23] galcanezumab-gnlm 120 mg/mL subcutaneous pen injector (Emgality Pen) 120 mg subcut QMONTH MIGRAINES 08/19/21 [History Last Taken 01/06/23] lorazepam 1 mg tablet 1 mg PO BID PRN ANXIETY 05/04/22 [History Last Taken 02/08/23] progesterone micronized 200 mg capsule 400 mg PO QHS HORMONES 10/11/22 [History Last Taken 02/09/23] tramadol 50 mg tablet 50 mg PO TID PAIN 10/11/22 [History Last Taken 02/10/23] amlodipine 10 mg tablet 10 mg PO DAILY BLOOD PRESSURE #90 tabs 10/28/22 [Rx Last Taken 02/10/23] valsartan 320 mg tablet 160 mg (1/2 x 320 mg) PO BID BLOOD PRESSURE #90 tabs 10/28/22 [Rx Last Taken 02/10/23] albuterol sulfate 90 mcg/actuation breath activated powder inhaler (ProAir RespiClick) 2 inh inhalation 4X/DAY PRN SHORTNESS OF BREATH #1 ea 11/07/22 [Rx Last Taken Unknown] metoclopramide HCl 10 mg tablet (Reglan) 10 mg PO Q6H PRN NAUSEA AND VOMTING #20 tabs 01/07/23 [Rx Last Taken Unknown] atorvastatin 80 mg tablet 80 mg PO DAILY CHOLESTEROL 02/10/23 [History Last Taken 02/10/23] cyclobenzaprine 5 mg tablet 5 mg PO Q8H PRN MUSCLE SPASMS 02/10/23 [History Last Taken 02/08/23] levothyroxine 175 mcg tablet 175 mcg PO DAILY THYROID 02/10/23 [History Last Taken 02/10/23] magnesium oxide 400 mg (241.3 mg magnesium) tablet 400 mg PO DAILY SUPPLEMENT 02/10/23 [History Last Taken 02/09/23] potassium chloride 10 mEq capsule,extended release 10 meq PO DAILY SUPPLEMENT 02/10/23 [History Last Taken 02/10/23] promethazine 25 mg rectal suppository (Promethegan) 25 mg SD Q6H PRN PRN Nausea #12 ea 02/24/23 [Rx Last Taken Unknown] cephalexin 500 mg capsule 500 mg PO BID 03/01/23 [History Last Taken Unknown] gabapentin 100 mg capsule 400 mg PO QHS LEG CRAMPS 03/01/23 [History Last Taken Unknown] cephalexin 500 mg capsule 500 mg PO Q6 7 days #28 CAPSULES 03/04/23 [Rx Last Taken Unknown] clindamycin HCl 300 mg capsule (Cleocin HCl) 300 mg PO Q6H 7 days #28 CAPSULES 03/08/23 [Rx Last Taken Unknown] Allergy/AdvReac Type Severity Reaction Status Date / Time hydrochlorothiazide AdvReac Intermediate Contributes Verified 03/04/23 09:52 to gout naproxen [From Naprosyn] AdvReac Intermediate Nausea Verified 03/04/23 09:52 aspirin AdvReac Nausea Verified 03/04/23 09:52 Family History Father , Age 72 Hypertension Mother CAD (coronary artery disease) Myocardial infarction, Onset Age: 55 Hypertension Sister CAD (coronary artery disease) Brother Cancer Surgical History History of History of cardiac catheterization History of carpal tunnel surgery of left wrist History of carpal tunnel surgery of right wrist History of left heart catheterization (11/11/20) history of uterine ablation Hx of cystoscopy Social History household members: none housing: apartment Smoking Status: Never smoker alcohol intake: never substance use type: does not use caffeine: No ROS ROS ED Constitutional Constitutional ED: Denies chills or fever(s) Eyes Eyes: Denies blurry vision or change in vision ENT ENT ED: Denies rhinorrhea or sore throat Cardiovascular Cardiovascular: Denies chest pain or palpitations Respiratory/Chest Respiratory/Chest: Denies cough or dyspnea Gastrointestinal Gastrointestinal: Reports nausea; Denies vomiting Genitourinary Genitourinary ED: Denies dysuria or hematuria Musculoskeletal Musculoskeletal: Reports neck pain; Denies back pain Integumentary Denies abscess or rash Neurologic Neurologic: Reports headache(s); Denies weakness Allergic/Immunologic Allergic/Immunologic ED: Denies mouth swelling or urticaria EXAM Physical Exam Const Vital Signs: 03/21/23 18:23 03/21/23 18:27 Temperature 96.7 F L Temperature Source Temporal Pulse Rate 88 Respiratory Rate 16 Respiratory Effort Normal Respiratory Depth Normal Respiratory Pattern Normal Blood Pressure 158/88 H Blood Pressure Mean 111 Pulse Ox 98 Oxygen Delivery Method Room Air Positive well nourished, well developed and obese General Appearance ED: well developed and NAD Nutritional Appearance: obese HEENT Reports normocephalic Neck Neck Narrative: There is tenderness over the cervical spine and paraspinal muscles. There is no bony crepitance or step-off noted. Range of motion was limited in all motions secondary to pain. Chest Wall palpation of chest normal Resp normal respiratory effort and clear to auscultation bilaterally Cardio regular rate and regular rhythm GI non-tender and non-distended Palpation: soft Extremity Extremity Narrative: There is tenderness and a superficial abrasion over the anterior aspect of the right knee. There are some mild edema and ecchymosis noted. There is no obvious deformity noted. Range of motion of the right knee was limited in all motions secondary to pain. Strength is 5/5 bilaterally in the lower extremities. Extensor mechanism is intact. There is a healing wound over the anteromedial aspect of the right lower tibia area. There is no surrounding erythema. There is no discharge or drainage noted. There is no calf tenderness noted. Pedal pulses are equal bilaterally. There are no sensory deficits noted. Neuro oriented x3, CN's II-XII intact bilaterally, moves all extremities, no focal motor deficits and no sensory deficits noted [place] Coma Scale: document GCS findings Spontaneous Obeys Commands Oriented 15 Sensorium / Orientation: alert Motor Exam: strength 5/5 throughout Psych mental status grossly normal MDM MDM MDM Narrative Medical decision making narrative: Differential diagnosis includes intracranial bleeding, closed head injury, cervical fracture, cervical muscle strain, patella fracture, tibial plateau fracture, hip fracture, and contusion. CT scan of the brain will be obtained to assess for intracranial bleeding. CT scan of the cervical spine will be obtained to assess for cervical fracture. X-rays of the right knee will be obtained to assess for patella and tibial plateau fracture. X-rays of the right hip will be obtained to assess for fracture. Radiography Diagnostic Testing: Clinical Impression(s) from Imaging Studies Brain CT 03/21/23 18:51 IMPRESSION: Normal unenhanced CT scan of the brain. Electronically Signed: Casey Pichardo MD at 19:25 EST Reading Location ID and State: [email or web address] / [employer] Tel , Service support , Cervical Spine CT 03/21/23 18:51 IMPRESSION: No acute fracture or subluxation. Electronically Signed: Casey Pichardo MD at 19:29 EST Reading Location ID and State: [employer] / [employer] , Service support , Hip/Pelvis X-Ray 03/21/23 19:05 IMPRESSION: 1. No acute fracture or dislocation. 2. Mild arthrosis. Electronically Signed: Casey Pichardo MD at 19:44 EST Reading Location ID and State: [employer] , Service support , Knee X-Ray 03/21/23 19:05 IMPRESSION: 1. No acute fracture or dislocation. 2. Mild arthrosis with a small joint effusion. Electronically Signed: Casey Pichardo MD at 19:46 EST Reading Location ID and State: [employer] , Service support , CT scan of the brain was obtained. There is no acute intracranial abnormality. This was interpreted by the radiologist and was also independently reviewed by myself. CT scan of the cervical spine was obtained. There is no acute fracture or dislocation noted. This was interpreted by the radiologist and was also independently reviewed by myself. X-rays of the right hip were obtained. There are 3 views. On my independent interpretation, there is no acute fracture or dislocation noted. There are some mild degenerative changes noted. Radiologist also interpreted the x-rays and agrees. X-rays of the right knee were obtained. There are 4 views. On my independent interpretation, there is no acute fracture or dislocation noted. There are some degenerative changes noted. There is a small joint effusion radiologist also interpreted the x-rays and agrees. Treatment and Re-Evaluation Narrative: Patient was given a dose of morphine. Patient was advised of her findings. Patient was instructed to use ice to her knee and hip. Patient was instructed to rest in a dark quiet room. Patient was given head injury instructions. Patient was instructed to follow-up with her primary care physician in 5 to 7 days. Patient understood and was agreeable with the plan. All questions were answered. Discharge Plan Triage Chief Complaint: Fall ED Provider: Anam Cuevas Dx/Rx/DC Orders Clinical Impression: Acute cervical myofascial strain, Closed head injury, Fall, Contusion of right knee, initial encounter Instructions: ED Soft Tissue Contusion, ED Head Injury (Adult), ED Neck Sprain or Strain Prescriptions: No Action budesonide-formoterol [Symbicort] 160-4.5 mcg/actuation HFA aerosol inhaler 2 puff INHALATION BID Nurtec ODT 75 mg tablet,disintegrating 75 mg PO ONCE PRN (Reason: MIGRAINES ) Emgality Pen 120 mg/mL pen injector 120 mg subcut QMONTH Patient Comments: PT STATES THEY WERE DUE TO GET THIS A WEEK AGO BUT CANNOT AFFORD TO DO SO AT THIS TIME 9AS OF 02-10-) Trelegy Ellipta 100-62.5-25 mcg blister with device 1 ea INHALATION DAILY lorazepam 1 mg tablet 1 mg PO BID PRN (Reason: ANXIETY ) tramadol 50 mg tablet 50 mg PO TID progesterone micronized 200 mg capsule 400 mg PO QHS ProAir RespiClick 90 mcg/actuation aerosol powdr breath activated 2 inh INHALATION 4X/DAY PRN (Reason: SHORTNESS OF BREATH ) Qty: 1 0RF cyclobenzaprine 5 mg tablet 5 mg PO Q8H PRN (Reason: MUSCLE SPASMS ) magnesium oxide 400 mg (241.3 mg magnesium) tablet 400 mg PO DAILY potassium chloride 10 mEq capsule, extended release 10 meq PO DAILY levothyroxine 175 mcg tablet 175 mcg PO DAILY atorvastatin 80 mg Tablet 80 mg PO DAILY gabapentin 100 mg capsule 400 mg PO QHS cephalexin 500 mg capsule 500 mg PO BID Patient Comments: TAKE 1 CAPSULE BY MOUTH TWICE DAILY clindamycin HCl [Cleocin HCl] 300 mg capsule 300 mg PO Q6H 7 Days Qty: 28 0RF metoclopramide HCl [Reglan] 10 mg tablet 10 mg PO Q6H PRN (Reason: NAUSEA AND VOMTING ) Qty: 20 0RF promethazine [Promethegan] 25 mg suppository 25 mg SD Q6H PRN PRN (Reason: Nausea) Qty: 12 0RF cephalexin 500 mg capsule 500 mg PO Q6 7 Days Qty: 28 0RF citalopram 40 mg tablet 40 mg PO DAILY amlodipine 10 mg tablet 10 mg PO DAILY Qty: 90 3RF valsartan 320 mg tablet 160 mg PO BID Qty: 90 3RF Primary Care Provider: Halina Johnson Referrals: Halina Johnson, [Primary Care Provider] - 5-7 Days Disposition Disposition: Home, Self Care
--- NOTE | 2023-03-21 18:51 | CT_ITS ---
STUDY: CT BRAIN WITHOUT CONTRAST REASON FOR EXAM: Female, 52 years old. Trauma RADIATION DOSAGE (If Supplied By Facility): CTDIvol = ( 31.45 ) mGy, DLP = ( 661.77 ) mGycm TECHNIQUE: Transaxial CT imaging of the brain was performed without administration of intravenous contrast material. Individualized dose optimization techniques were used for this CT. COMPARISON: 03/02/2023 FINDINGS: Normal soft tissue structures. Normal calvarium. Normal size ventricles and extra-axial spaces for the patient''s age. Normal white matter tracts of the cerebral hemispheres. Normal basal ganglia and thalami. Normal brainstem. Normal cerebellum. There is no intracranial hemorrhage. There are no findings of an acute ischemic infarction. Normal visualized paranasal sinuses. CT/Brain/Head without Contrast IMPRESSION: Normal unenhanced CT scan of the brain. Electronically Signed: Casey Pichardo MD at 19:25 EST ,
--- NOTE | 2023-03-21 18:51 | CT_ITS ---
STUDY: CT CERVICAL SPINE WITHOUT CONTRAST REASON FOR EXAM: Female, 52 years old. Trauma RADIATION DOSAGE (If Supplied By Facility): CTDIvol = ( 31.45 ) mGy, DLP = ( 661.77 ) mGycm TECHNIQUE: High resolution transaxial imaging was performed without contrast material. Sagittal and coronal images were reconstructed. Individualized dose optimization techniques were used for this CT. COMPARISON: 02/10/2023 FINDINGS: Normal craniovertebral junction. There are degenerative changes of the anterior atlantoaxial articulation. Normal odontoid process. Normal cervical lordosis. Normal vertebral bodies and posterior osseous elements. C2-3: Normal endplates. Normal disc height and morphology. Normal central canal and intervertebral neuroforamina. C3-4: Normal endplates. Normal disc height and morphology. Normal central canal and intervertebral neuroforamina. C4-5: Normal endplates. Normal disc height and morphology. Normal central canal and intervertebral neuroforamina. C5-6: Normal endplates. Normal disc height and morphology. Normal central canal and intervertebral neuroforamina. C6-7: Mild broad disc osteophyte complex produces mild spinal stenosis and mild bilateral neural foraminal stenosis. C7-T1: Normal endplates. Normal disc height and morphology. Normal central canal and intervertebral neuroforamina. Normal visualized soft tissue structures. CT/Spine Cervical without Contras IMPRESSION: No acute fracture or subluxation. Electronically Signed: Casey Pichardo MD at 19:29 EST ,
--- NOTE | 2023-03-21 19:05 | RAD_ITS ---
STUDY: X-RAY - PELVIS AND RIGHT HIP REASON FOR EXAM: Female, 52 years old. Injury/Pain TECHNIQUE: 3 views of the pelvis and hip. COMPARISON: None. FINDINGS: There is a non-specific bowel gas pattern. Normal visualized soft tissue structures. Normal bilateral iliac wings, sacroiliac joints and visualized sacrum. Normal bilateral superior and inferior pubic rami. Normal pubic symphysis. Normal bilateral ischial tuberosities. Normal visualized femoral head. There is osteoarthritic spur formation of the acetabular rim. There is mild articular joint space narrowing of the hip. RAD/HIP, UNI W/ Pelvis 2-3 Views IMPRESSION: 1. No acute fracture or dislocation. 2. Mild arthrosis. Electronically Signed: Casey Pichardo MD at 19:44 EST ,
--- NOTE | 2023-03-21 19:05 | RAD_ITS ---
STUDY: X-RAY - RIGHT KNEE REASON FOR EXAM: Female, 52 years old. Injury/Pain TECHNIQUE: 4 view(s) of the knee. COMPARISON: None. FINDINGS: Normal visualized distal femur. Normal visualized proximal tibia and fibula. Normal proximal tibiofibular articulation. There is mild degenerative arthrosis of the medial femorotibial compartment. There is mild degenerative arthrosis of the lateral femorotibial compartment. There is mild degenerative arthrosis of the patellofemoral articulation. There is a soft tissue prominence in the suprapatellar region suggesting a small volume joint effusion. The soft tissue structures are unremarkable. RAD/Knee 4 or More Views IMPRESSION: 1. No acute fracture or dislocation. 2. Mild arthrosis with a small joint effusion. Electronically Signed: Casey Pichardo MD at 19:46 EST ,
[2023-03-21] MEDS: Morphine 4 MG/ML Syringe IM (19:17)
[2023-03-21 20:15] VITALS: BP 140/75; PULSE 85; RESP 16; O2SAT 99
[2023-03-21] MEDS: Metoclopramide 10 MG/2 ML Vial IV (20:47)
[2023-03-21] MEDS: DiphenhydrAMINE 50 MG/ML Syringe 25 MG IV (20:47)
== END 2023-03-21 21:11 | disposition home or self-care (01) ==
PROVIDERS: Emergency Provider Emergency Medicine; PCP Family Medicine; Visit Provider Emergency Medicine
DX: S16.1XXA Strain of muscle, fascia and tendon at neck level, initial encounter (principal); S09.90XA Unspecified injury of head, initial encounter; S80.01XA Contusion of right knee, initial encounter; G47.33 Obstructive sleep apnea (adult) (pediatric); E66.9 Obesity, unspecified; W19.XXXA Unspecified fall, initial encounter; Z86.711 Personal history of pulmonary embolism
CPT/HCPCS: 70450; 72125; 73502; 73564; 96372; 96374; 96375; 99282; A4216

== ENCOUNTER 2023-03-27 05:41 | Emergency (ER) | payer MEDICARE, MEDICAID, SELFPAY ==
[2023-03-27 05:42] VITALS: BP 184/102; PULSE 99; RESP 20; TEMP 36.8; O2SAT 100; BMI 50.0
[2023-03-27] MEDS: Aspirin 81 MG TAB.CHEW 324 MG PO (05:54)
--- NOTE | 2023-03-27 05:54 | EDS_ITS ---
[facility] <Dr. Jcarlos Anthony MD - Last Filed: 04/04/23 15:29> History of Present Illness Chief Complaint: Chest Pain Detail of Chief Complaint: Sharp anterior central chest pain Informant: patient Onset/Context/Timing Onset: Yesterday Activity at onset: sudden Timing: Continuous Quality: Positive for Sharp Location: - (Central anterior chest) Current Severity: Mild Maximum Severity: Moderate Worsened By: Breathing Relieved By: Nothing Associated Symptoms: Negative for Nausea, Vomiting, Diaphoresis, Dyspnea, Cough, Fever, Lightheadedness, Acid Reflux or Palpitations Narrative Narrative: Patient is a 52-year-old woman with history of coronary disease per old records. She had a cardiac catheterization October 2020. Will need to review those records. She has history of diabetes, hyperlipidemia, hypertension, obstructive sleep apnea and GERD. She also has history of noncompliance of her medication and treatment. There is also history of COPD. She arrived by EMS because of central sharp chest pain. This started yesterday. She denies tearing ripping sensation. She denies black or maroon stool. She does have a history of reflux per old records. She is not on an anticoagulant. She denies headache, visual, ocular auditory symptoms. Denies upper respiratory infectious symptoms. Patient denies abdominal pain, vomiting, diarrhea, black or maroon-colored stool. Patient denies intolerance to greasy or fried foods. Prior Similar Symptoms: Yes (Patient's had numerous visits since January.) Recent Illness/Hospitalization: Yes CVD Risk Factors: Positive for Hypertension, Diabetes, Hypercholesterolemia and Smoking PE Risk Factors: Negative for Recent Travel/Surgery, Recent Immobilization, Prior DVT or PE, Cancer or OCP + Smoking + >/=35 TAD Risk Factors: Negative for Marfan's Syndrome or Hypertension [facility] <Dr. Jcarlos Anthony MD - Last Filed: 04/04/23 15:29> [facility] Medical History Abnormal glucose Anemia Anxiety Arthritis Asthma BiPAP (biphasic positive airway pressure) dependence Cardiac murmur Cardiology follow-up encounter Celiac disease Chest pain Chronic kidney disease COPD (chronic obstructive pulmonary disease) Depression Diabetes mellitus Dietary restriction Difficulty swallowing Dyspnea on exertion Fall GERD (gastroesophageal reflux disease) Gout History of chronic back pain History of echocardiogram History of edema History of pain when walking History of stress test Hydronephrosis Hyperlipidemia Hypersomnia Hypertension Hypothyroidism Injury of head and neck Iron deficiency anemia Leg cramps Microcytic anemia Migraine headache Morbid obesity with BMI of 40.0-44.9, adult Non-smoker Noncompliance DAVY treated with BiPAP Post-menopausal Pulmonary embolism Restless leg syndrome Scalp hematoma Shortness of breath on exertion Syncope Thyroid disease UTI (urinary tract infection) Vitamin B12 deficiency Vitamin D deficiency Wears glasses Home Medications citalopram 40 mg tablet 40 mg PO DAILY DEPRESSION/ANXIETY 07/27/19 [History Last Taken 02/10/23] budesonide-formoterol HFA 160 mcg-4.5 mcg/actuation aerosol inhaler (Symbicort) 2 puff inhalation BID COPD 04/02/20 [History Last Taken 02/10/23] rimegepant 75 mg disintegrating tablet (Nurtec ODT) 75 mg PO ONCE PRN MIGRAINES 06/19/20 [History Last Taken 05/04/22] fluticasone fur. 100 mcg-umeclid 62.5 mcg-vilant 25 mcg inhalat.powder (Trelegy Ellipta) 1 ea inhalation DAILY COPD 08/14/20 [History Last Taken 02/10/23] galcanezumab-gnlm 120 mg/mL subcutaneous pen injector (Emgality Pen) 120 mg subcut QMONTH MIGRAINES 08/19/21 [History Last Taken 01/06/23] lorazepam 1 mg tablet 1 mg PO BID PRN ANXIETY 05/04/22 [History Last Taken 01/28 04/22] progesterone micronized 200 mg capsule 400 mg PO QHS HORMONES 10/11/22 [History Last Taken 02/09/23] tramadol 50 mg tablet 50 mg PO TID PAIN 10/11/22 [History Last Taken 02/10/23] amlodipine 10 mg tablet 10 mg PO DAILY BLOOD PRESSURE #90 tabs 10/28/22 [Rx Last Taken 02/10/23] valsartan 320 mg tablet 160 mg (1/2 x 320 mg) PO BID BLOOD PRESSURE #90 tabs 10/28/22 [Rx Last Taken 02/10/23] albuterol sulfate 90 mcg/actuation breath activated powder inhaler (ProAir RespiClick) 2 inh inhalation 4X/DAY PRN SHORTNESS OF BREATH #1 ea 11/07/22 [Rx Last Taken Unknown] metoclopramide HCl 10 mg tablet (Reglan) 10 mg PO Q6H PRN NAUSEA AND VOMTING #20 tabs 01/07/23 [Rx Last Taken Unknown] atorvastatin 80 mg tablet 80 mg PO DAILY CHOLESTEROL 02/10/23 [History Last Taken 02/10/23] cyclobenzaprine 5 mg tablet 5 mg PO Q8H PRN MUSCLE SPASMS 02/10/23 [History Last Taken 02/08/23] levothyroxine 175 mcg tablet 175 mcg PO DAILY THYROID 02/10/23 [History Last Taken 02/10/23] magnesium oxide 400 mg (241.3 mg magnesium) tablet 400 mg PO DAILY SUPPLEMENT 02/10/23 [History Last Taken 02/09/23] potassium chloride 10 mEq capsule,extended release 10 meq PO DAILY SUPPLEMENT 02/10/23 [History Last Taken 02/10/23] promethazine 25 mg rectal suppository (Promethegan) 25 mg IL Q6H PRN PRN Nausea #12 ea 02/24/23 [Rx Last Taken Unknown] cephalexin 500 mg capsule 500 mg PO BID 03/01/23 [History Last Taken Unknown] gabapentin 100 mg capsule 400 mg PO QHS LEG CRAMPS 03/01/23 [History Last Taken Unknown] cephalexin 500 mg capsule 500 mg PO Q6 7 days #28 CAPSULES 03/04/23 [Rx Last Taken Unknown] clindamycin HCl 300 mg capsule (Cleocin HCl) 300 mg PO Q6H 7 days #28 CAPSULES 03/08/23 [Rx Last Taken Unknown] apixaban 5 mg (74 tabs) tablets in a dose pack (Eliquis DVT-PE Treat 30D Start) 5 mg PO BID #74 tabs 03/27/23 [Rx Last Taken Unknown] Allergy/AdvReac Type Severity Reaction Status Date / Time hydrochlorothiazide AdvReac Intermediate Contributes Verified 04/04/23 11:06 to gout naproxen [From Naprosyn] AdvReac Intermediate Nausea Verified 04/04/23 11:06 aspirin AdvReac Nausea Verified 04/04/23 11:06 Family History Father , Age 72 Hypertension Mother CAD (coronary artery disease) Myocardial infarction, Onset Age: 55 Hypertension Sister CAD (coronary artery disease) Brother Cancer Surgical History History of History of cardiac catheterization History of carpal tunnel surgery of left wrist History of carpal tunnel surgery of right wrist History of left heart catheterization (11/11/20) history of uterine ablation Hx of cystoscopy Social History household members: none housing: apartment Smoking Status: Never smoker alcohol intake: never substance use type: does not use caffeine: No ROS <Dr. Jcarlos Anthony MD - Last Filed: 04/04/23 15:29> ROS ED Constitutional Constitutional ED: Denies chills, fever(s), subjective, sweats or weight loss Eyes Eyes: Reports none ENT ENT ED: Denies ear pain, rhinorrhea or sore throat Cardiovascular Cardiovascular: Reports as per HPI; Denies orthopnea or paroxysmal nocturnal dyspnea Respiratory/Chest Respiratory/Chest: Denies cough, dyspnea, dyspnea on exertion, orthopnea, paroxysmal nocturnal dyspnea or sputum Gastrointestinal Gastrointestinal: Denies abdominal pain, constipation, diarrhea, nausea or vomiting Genitourinary Genitourinary ED: Denies dysuria or hematuria Musculoskeletal Musculoskeletal: Denies arthralgias, back pain, myalgias or neck pain Integumentary Denies rash Neurologic Neurologic: Denies headache(s) or weakness Psychiatric Psychiatric: Denies anxiety, depression or suicidal ideation Endocrine Endocrinology: Denies heat intolerance, polydipsia or polyuria EXAM <Dr. Jcarlos Anthony MD - Last Filed: 04/04/23 15:29> Physical Exam Narrative Exam Narrative: Blood pressure is elevated 184/102. Will observe. Const Vital Signs: 03/27/23 05:42 03/27/23 05:42 03/27/23 05:46 Temperature 98.2 F Temperature Source Temporal Pulse Rate 99 Respiratory Rate 20 H Respiratory Effort Normal Blood Pressure 184/102 H Blood Pressure Mean 129 Pulse Ox 100 Oxygen Delivery Method Room Air Room Air 03/27/23 07:14 03/27/23 08:09 Temperature Temperature Source Pulse Rate 96 97 Respiratory Rate 17 16 Respiratory Effort Blood Pressure 163/103 H 145/112 H Blood Pressure Mean 123 123 Pulse Ox 100 97 Oxygen Delivery Method Room Air Room Air Positive well nourished, well developed, obese and unkempt General Appearance ED: unkempt, well developed and NAD Nutritional Appearance: obese HEENT Reports moist mucous membranes normocephalic and atraumatic Eyes PERRL and EOMs intact bilaterally General Eye ED: Negative for pale conjunctiva or scleral icterus Neck no lymphadenopathy, supple and no JVD Neck Narrative: Trachea is midline. There is no stridor. There is no carotid bruits. Chest Wall palpation of chest normal Resp normal respiratory effort and clear to auscultation bilaterally Cardio regular rate, regular rhythm, S1 normal heart sound, S2 normal heart sound and no murmurs GI normal to inspection, nondistended, normoactive bowel sounds, soft to palpation, non-tender, non-distended and no masses; Negative for hepatosplenomegaly Back/Spine no CVA tenderness Extremity normal to inspection General Extremety ED: Negative for edema General Extremity: Negative for edema Neuro oriented x3, CN's II-XII intact bilaterally and no sensory deficits noted Sensorium / Orientation: awake and alert Psych Psych Narrative: Affect is flat. Appearance: unkempt Skin no rashes or lesions noted and no wounds <Dr. Pipo Merritt MD - Last Filed: 03/27/23 08:15> Physical Exam Const Vital Signs: 03/27/23 05:42 03/27/23 05:42 03/27/23 05:46 Temperature 98.2 F Temperature Source Temporal Pulse Rate 99 Respiratory Rate 20 H Respiratory Effort Normal Blood Pressure 184/102 H Blood Pressure Mean 129 Pulse Ox 100 Oxygen Delivery Method Room Air Room Air 03/27/23 07:14 03/27/23 08:09 Temperature Temperature Source Pulse Rate 96 97 Respiratory Rate 17 16 Respiratory Effort Blood Pressure 163/103 H 145/112 H Blood Pressure Mean 123 123 Pulse Ox 100 97 Oxygen Delivery Method Room Air Room Air <Dr. Jcarlos Anthony MD - Last Filed: 04/04/23 15:29> Heart Score History: Slightly/Non-Suspicious Age: >45 - <65 years Risk Factors: >/= 3 Risk Factors or History of CAD Score: 3 <Dr. Pipo Merritt MD - Last Filed: 03/27/23 08:15> Heart Score Score: 3 MDM <Dr. Jcarlos Anthony MD - Last Filed: 04/04/23 15:29> MDM MDM Narrative Medical decision making narrative: Patient presents with atypical pain. Records from outside facility and records from [facility] reviewed. Patient had numerous visits in the past 2 months. She is been seen for chest pain. She did have a CTA recently which was negative. There is no CTA that has been performed within the last several years [facility] that indicates she has a PE. Differential diagnosis is affective disorder, conversion reaction, coronary disease, GI disease versus pulmonary. EKG appropriate blood work was obtained. History & Record Review Discussion w/independent historian: EMS personnel and Patient Additional record(s) reviewed:: Prior outpatient record (Records from outside facility which in included [facility] and [facility].) Lab Data Attestation: I reviewed the patient's lab results. Lab results narrative: White count is elevated without shift. There is mild anemia. D-dimer is 1.19. D-dimer is elevated even after correction for age. Therefore with history of prior PE, tachycardia, pleuritic chest pain will obtain CTA of the chest. First troponin is normal at 7. Creatinine is slightly elevated 1.23, which is patient's baseline. Estimated GFR is 49. Glucose is 162 with a normal CO2 and anion gap. Labs: Laboratory Results - last 24 hr 03/27/23 06:10 WBC 14.1 H RBC 3.72 L Hgb 11.6 L Hct 37.1 MCV 99.7 H MCH 31.2 MCHC 31.3 L RDW Std Deviation 53.6 H RDW Coeff of Alfredo 14.5 Plt Count 401 MPV 10.4 Immature Gran % (Auto) 0.800 Neut % (Auto) 69.7 Lymph % (Auto) 17.4 L [place] % (Auto) 7.5 Eos % (Auto) 4.0 Baso % (Auto) 0.6 Absolute Neuts (auto) 9.8 H Absolute Lymphs (auto) 2.45 Nucleated RBC % 0 D-Dimer Quant (PE/DVT) 1.19 H* Sodium 139 Potassium 3.7 Chloride 111 H Carbon Dioxide 22.0 Anion Gap 6 BUN 7 Creatinine 1.23 H Estim Creat Clear Calc 72.38 Est GFR (MDRD) Af Amer 59 L Est GFR (MDRD) Non-Af 49 L BUN/Creatinine Ratio 5.7 L Glucose 162 H Calcium 9.9 Troponin I High Sens 7 Radiography Chest X-Ray - ED: 1 View and Read by ED Physician (Portable single view reveals no acute pathology. Patient is slightly rotated and reason mediastinum appears enlarged. Cardiac silhouette is normal. Lung parenchyma is normal. There is no evidence of CHF, effusion or infiltrate. There is no evidence of pneumothorax. Osseous structures unremarka) Diagnostic Testing: Clinical Impression(s) from Imaging Studies Chest X-Ray 03/27/23 06:28 IMPRESSION: Cardiomegaly without obvious acute cardiopulmonary disease. Electronically Signed: Jessa Gardner MD at 7:02 EST Reading Location ID and State: [facility] / [place] , Service support , Chest CTA 03/27/23 06:41 IMPRESSION: Small segmental pulmonary emboli to the right middle lobe, right lower lobe and left lower lobe. No evidence for right heart strain. N.B. : The above Results were Read Back by Jessa Gardner MD to Isaac Merritt MD, and understanding confirmed on 03/27/2023 07:30:26 (ET). Electronically Signed: Jessa Gardner MD at 7:35 EST , ADDENDUM: 03/27/23 0742 IMPRESSION: Small segmental pulmonary emboli to the right middle lobe, right lower lobe and left lower lobe. No evidence for right heart strain. N.B. : The above Results were Read Back by Jessa Gardner MD to Isaac Merritt MD, and understanding confirmed on 03/27/2023 07:30:26 (ET). Electronically Signed: Jessa Gardner MD at 7:35 EST , EKG Initial EKG: Attestation: I personally reviewed and interpreted this EKG as follows: Interpretation: Sinus Rhythm (Rate is 97. IL interval 160 ms. Cures duration 84 ms. QT duration 180 ms. [place] is normal. There is artifact. There is no obvious ischemic changes noted.) Treatment and Re-Evaluation :: Patient was informed that she needs a CAT scan to rule out PE. Will transfer care to the morning physician to make disposition once CTA has been performed and interpreted by radiologist. <Dr. Pipo Merritt MD - Last Filed: 03/27/23 08:15> [facility] Narrative Medical decision making narrative: Patient presents with atypical pain. Records from outside facility and records from [facility] reviewed. Patient had numerous visits in the past 2 months. She is been seen for chest pain. She did have a CTA recently which was negative. There is no CTA that has been performed within the last several years [facility] that indicates she has a PE. Differential diagnosis is affective disorder, conversion reaction, coronary disease, GI disease versus pulmonary. EKG appropriate blood work was obtained. Patient turned over to me at 7:05 AM from the overnight physician. I was requested to re-evaluate the patient and check the CTA of the chest results. Radiologist called me and the CTA was read as bilateral lower lobe and right middle lobe pulmonary emboli. Patient has had clots before in the past. She has been on Eliquis before in the past but currently is not on any blood thinner. She will be restarted on Eliquis and a prescription was written to be filled here at the hospital. She knows she must start that today. We also discussed things to watch for while you are on blood thinners. She was instructed to follow-up with her primary care physician. She knows to return if feeling worse. Lab Data Labs: Laboratory Results - last 24 hr 03/27/23 06:10 WBC 14.1 H RBC 3.72 L Hgb 11.6 L Hct 37.1 MCV 99.7 H MCH 31.2 MCHC 31.3 L RDW Std Deviation 53.6 H RDW Coeff of Alfredo 14.5 Plt Count 401 MPV 10.4 Immature Gran % (Auto) 0.800 Neut % (Auto) 69.7 Lymph % (Auto) 17.4 L [place] % (Auto) 7.5 Eos % (Auto) 4.0 Baso % (Auto) 0.6 Absolute Neuts (auto) 9.8 H Absolute Lymphs (auto) 2.45 Nucleated RBC % 0 D-Dimer Quant (PE/DVT) 1.19 H* Sodium 139 Potassium 3.7 Chloride 111 H Carbon Dioxide 22.0 Anion Gap 6 BUN 7 Creatinine 1.23 H Estim Creat Clear Calc 72.38 Est GFR (MDRD) Af Amer 59 L Est GFR (MDRD) Non-Af 49 L BUN/Creatinine Ratio 5.7 L Glucose 162 H Calcium 9.9 Troponin I High Sens 7 Radiography Diagnostic Testing: Clinical Impression(s) from Imaging Studies Chest X-Ray 03/27/23 06:28 IMPRESSION: Cardiomegaly without obvious acute cardiopulmonary disease. Electronically Signed: Jessa Gardner MD at 7:02 EST Reading Location ID and State: [address] [place] [address] , Service support , Chest CTA 03/27/23 06:41 IMPRESSION: Small segmental pulmonary emboli to the right middle lobe, right lower lobe and left lower lobe. No evidence for right heart strain. N.B. : The above Results were Read Back by Jessa Gardner MD to Isaac Merritt MD, and understanding confirmed on 03/27/2023 07:30:26 (ET). Electronically Signed: Jessa Gardner MD at 7:35 EST Reading Location ID and State: [facility] , Service support , ADDENDUM: 03/27/23 0742 IMPRESSION: Small segmental pulmonary emboli to the right middle lobe, right lower lobe and left lower lobe. No evidence for right heart strain. N.B. : The above Results were Read Back by Jessa Gardner MD to Isaac Merritt MD, and understanding confirmed on 03/27/2023 07:30:26 (ET). Electronically Signed: Jessa Gardner MD at 7:35 EST , Discharge Plan Triage Chief Complaint: Chest Pain ED Provider: Jcarlos Anthony Dx/Rx/DC Orders Clinical Impression: Pleuritic chest pain, COPD (chronic obstructive pulmonary disease), Essential hypertension, Diastolic dysfunction, Elevated d-dimer, Non-cardiac chest pain, History of coronary artery disease, Bilateral pulmonary embolism Instructions: Pulmonary Embolism Prescriptions: New Eliquis DVT-PE Treat 30D Start 5 mg (74 tabs) tablets,dose pack 5 mg PO BID Qty: 74 0RF Rx Instructions: Starter pack of Eliquis for Pulmonary Emboli No Action budesonide-formoterol [Symbicort] 160-4.5 mcg/actuation HFA aerosol inhaler 2 puff INHALATION BID Nurtec ODT 75 mg tablet,disintegrating 75 mg PO ONCE PRN (Reason: MIGRAINES ) Emgality Pen 120 mg/mL pen injector 120 mg subcut QMONTH Patient Comments: PT STATES THEY WERE DUE TO GET THIS A WEEK AGO BUT CANNOT AFFORD TO DO SO AT THIS TIME 9AS OF 02-10-23) Trelegy Ellipta 100-62.5-25 mcg blister with device 1 ea INHALATION DAILY lorazepam 1 mg tablet 1 mg PO BID PRN (Reason: ANXIETY ) tramadol 50 mg tablet 50 mg PO TID progesterone micronized 200 mg capsule 400 mg PO QHS ProAir RespiClick 90 mcg/actuation aerosol powdr breath activated 2 inh INHALATION 4X/DAY PRN (Reason: SHORTNESS OF BREATH ) Qty: 1 0RF cyclobenzaprine 5 mg tablet 5 mg PO Q8H PRN (Reason: MUSCLE SPASMS ) magnesium oxide 400 mg (241.3 mg magnesium) tablet 400 mg PO DAILY potassium chloride 10 mEq capsule, extended release 10 meq PO DAILY levothyroxine 175 mcg tablet 175 mcg PO DAILY atorvastatin 80 mg Tablet 80 mg PO DAILY gabapentin 100 mg capsule 400 mg PO QHS cephalexin 500 mg capsule 500 mg PO BID Patient Comments: TAKE 1 CAPSULE BY MOUTH TWICE DAILY clindamycin HCl [Cleocin HCl] 300 mg capsule 300 mg PO Q6H 7 Days Qty: 28 0RF metoclopramide HCl [Reglan] 10 mg tablet 10 mg PO Q6H PRN (Reason: NAUSEA AND VOMTING ) Qty: 20 0RF promethazine [Promethegan] 25 mg suppository 25 mg IL Q6H PRN PRN (Reason: Nausea) Qty: 12 0RF cephalexin 500 mg capsule 500 mg PO Q6 7 Days Qty: 28 0RF citalopram 40 mg tablet 40 mg PO DAILY amlodipine 10 mg tablet 10 mg PO DAILY Qty: 90 3RF valsartan 320 mg tablet 160 mg PO BID Qty: 90 3RF Primary Care Provider: Halina Johnson Referrals: Halina Johnson, DO [Primary Care Provider] - As soon as possible Activity Restrictions/Additional Instructions: You have blood clots in your lower lungs on both sides. He will be restarted on the blood thinner Eliquis. Take it as prescribed. Very important to try not to cut yourself or fall or hit your head. If you hit your head or start bleeding you need to be reevaluated. Follow-up with your primary care physician. Return if feeling worse. Very important to start the blood thinning medication Eliquis your new prescription to date. Disposition Disposition: Home, Self Care Discharge Date/Time: 03/27/23 09:09
[2023-03-27 06:17] LABS: Absolute Lymphocyte Count 2.45 X10^3/uL (0.83-4.51); Absolute Neutrophil Count 9.8 X10^3/uL (2.0-7.7); Basophil# 0.09 X10^3/uL; Basophil% 0.6 % (0-1); Eosinophil# 0.56 X10^3/uL; Hematocrit 37.1 % (37-47); Hemoglobin 11.6 g/dL (12.0-15.0); Lymphocyte # 2.45 X10^3/ul (0.83-4.51); Lymphocyte % 17.4 % (19-41); Mean Corp Hgb Conc 31.3 g/dL (32-36); Mean Corpuscular Hgb 31.2 pg (27.0-32.0); Mean Corpuscular Volume 99.7 fL (81-99); Mean Platelet Vol. 10.4 fl (6.2-12.0); Monocyte# 1.05 X10^3/uL; Monocyte% 7.5 % (0-10); NRBC Flagged by Analyzer 0 % (0-5); Neutrophil # 9.79 X10^3/uL (2.7-7.7); Neutrophil % 69.7 % (47-70); Platelet Count 401 K/mm3 (150-450); RBC Distribution Width CV 14.5 % (11.6-14.6); RBC Distribution Width SD 53.6 fl (35.1-43.9); Red Blood Count 3.72 M/mm3 (4.2-5.4); White Blood Count 14.1 K/mm3 (4.4-11.0)
--- NOTE | 2023-03-27 06:28 | RAD_ITS ---
STUDY: X-RAY CHEST REASON FOR EXAM: Female, 52 years old patient with chest pain. TECHNIQUE: Single AP portable view of the chest. COMPARISON: Chest radiograph dated January 31, 2023. FINDINGS: Cardiac monitoring leads are present. The lungs are clear and expanded. There is no demonstrated pleural abnormality. There is mild cardiac enlargement. Normal mediastinum and kumar. Normal visualized pulmonary arteries. Normal visualized aortic arch and descending thoracic aorta. Normal visualized thoracic spine. Normal visualized ribs, clavicles, and shoulders. There is no demonstrated abnormality of the visualized soft tissue structures of the upper abdomen. RAD/Chest 1 View (Portable) IMPRESSION: Cardiomegaly without obvious acute cardiopulmonary disease. Electronically Signed: Jessa Gardner MD at 7:02 EST ,
[2023-03-27 06:40] LABS: D-Dimer Quantitative (DVT/PE) 1.19 FEU/ug/m (0.27-0.49)
--- NOTE | 2023-03-27 06:41 | CT_ITS ---
STUDY: CTA CHEST REASON FOR EXAM: Female, 52 years old patient with prior pulmonary embolus PE, tachycardia, pleuritic chest pain and elevated D-Dimer. RADIATION DOSAGE (If Supplied By Facility): CTDIvol = ( 10.29 ) mGy, DLP = ( 487.11 ) mGycm TECHNIQUE: The examination was performed with the intravenous administration of 100 mL of IV Isovue-370. Post-processing of the angiographic images was performed, with multiplanar reformation and 3D reconstruction. Individualized dose optimization techniques were used for this CT. COMPARISON: None. FINDINGS: Normal enhancement of the main pulmonary artery and right and left pulmonary arteries. Normal enhancement of the bilateral peripheral pulmonary arteries. There are segmental pulmonary emboli to the right middle lobe, right lower lobe as well as the left lower lobe. There is a small focus of gas in the main pulmonary artery possibly secondary to recent intravenous administration of contrast. There is mild atherosclerotic calcification of the aortic arch with tortuosity. There is no demonstrated aortic dissection. Normal heart and pericardium. There is increased epicardial and pericardial fat measuring up to 3.2 cm in thickness. Normal mediastinum. Normal hilar regions. Normal visualized trachea and bronchi. The lungs are well expanded. Normal pulmonary parenchyma. Normal pleura. Normal chest wall structures. Normal osseous structures. Liver appears to be enlarged. CT/CTA Chest W/WO Contrast IMPRESSION: Small segmental pulmonary emboli to the right middle lobe, right lower lobe and left lower lobe. No evidence for right heart strain. N.B. : The above Results were Read Back by Jessa Gardner MD to Isaac Merritt MD, and understanding confirmed on 03/27/2023 07:30:26 (ET). Electronically Signed: Jessa Gardner MD at 7:35 EST ,
[2023-03-27 06:45] LABS: Anion Gap 6 (5-15); BUN 7 mg/dL (7-18); BUN/Creat Ratio 5.7 RATIO (10-20); Calcium,Total 9.9 mg/dL (8.5-10.1); Chloride 111 mmol/L (98-107); Creatinine, Serum 1.23 mg/dL (0.55-1.02); EST Glomerular Filtration Rate 49 mL/min (>60); Est Glom Filt Rate - Afr Amer 59 mL/min (>60); Estimated Creatinine Clearance 72.38 ml/min; Glucose 162 mg/dL (74-106); Potassium 3.7 mmol/L (3.5-5.1); Sodium Level 139 mmol/L (136-145); Troponin-I HS (w/2H Reflex) 7 pg/mL (3.0-54.0)
[2023-03-27 07:14] VITALS: BP 163/103; PULSE 96; RESP 17; O2SAT 100
[2023-03-27 08:09] VITALS: BP 145/112; PULSE 97; RESP 16; O2SAT 97
[2023-03-27 08:14] LABS: Reflex Troponin-HS? (from REC) Y
--- NOTE | 2023-03-27 08:28 | ED.RN ---
Patient complaining of chest pain. Dr Merritt aware. 1 gram tylenol ordered.
[2023-03-27] MEDS: Acetaminophen 500 MG Tablet 1000 MG PO (08:31)
[2023-03-27 09:05] VITALS: BP 168/107; O2SAT 99
== END 2023-03-27 09:09 | disposition home or self-care (01) ==
PROVIDERS: Emergency Provider Emergency Medicine; PCP Family Medicine; Visit Provider Emergency Medicine
DX: R07.81 Pleurodynia (principal); I26.99 Other pulmonary embolism without acute cor pulmonale; J44.9 Chronic obstructive pulmonary disease, unspecified; R07.89 Other chest pain; I12.9 Hypertensive chronic kidney disease with stage 1 through stage 4 chronic kidney disease, or unspecified chronic kidney disease; I25.10 Atherosclerotic heart disease of native coronary artery without angina pectoris; G47.33 Obstructive sleep apnea (adult) (pediatric); E66.9 Obesity, unspecified; N18.9 Chronic kidney disease, unspecified; Z86.711 Personal history of pulmonary embolism
CPT/HCPCS: 71045; 71275; 80048; 84484; 85025; 85379; 93005; 99283; Q9967; A4216

== ENCOUNTER → 2023-04-01 | Outpatient (CLI) | payer MEDICARE, MEDICAID, SELFPAY ==
[2023-03-01 13:22] LABS: Absolute Lymphocyte Count 1.66 X10^3/uL (0.83-4.51); Absolute Neutrophil Count 9.5 X10^3/uL (2.0-7.7); Basophil# 0.11 X10^3/uL; Basophil% 0.8 % (0-1); Eosinophil# 0.72 X10^3/uL; Eosinophils% 5.4 % (0-5); Hematocrit 35.7 % (37-47); Lymphocyte # 1.66 X10^3/ul (0.83-4.51); Lymphocyte % 12.6 % (19-41); Mean Corp Hgb Conc 30.8 g/dL (32-36); Mean Corpuscular Hgb 32.1 pg (27.0-32.0); Mean Corpuscular Volume 104.1 fL (81-99); Mean Platelet Vol. 10.1 fl (6.2-12.0); Monocyte# 1.15 X10^3/uL; Monocyte% 8.7 % (0-10); NRBC Flagged by Analyzer 0 % (0-5); Neutrophil # 9.45 X10^3/uL (2.7-7.7); Neutrophil % 71.5 % (47-70); Platelet Count 412 K/mm3 (150-450); RBC Distribution Width SD 57.5 fl (35.1-43.9); Red Blood Count 3.43 M/mm3 (4.2-5.4); White Blood Count 13.2 K/mm3 (4.4-11.0)
[2023-03-01 13:43] LABS: Anion Gap 5 (5-15); BUN 9 mg/dL (7-18); BUN/Creat Ratio 8.9 RATIO (10-20); Calcium,Total 9.3 mg/dL (8.5-10.1); Chloride 107 mmol/L (98-107); Creatinine, Serum 1.01 mg/dL (0.55-1.02); EST Glomerular Filtration Rate 61 mL/min (>60); Est Glom Filt Rate - Afr Amer 74 mL/min (>60); Glucose 112 mg/dL (74-106); Potassium 3.7 mmol/L (3.5-5.1); Sodium Level 139 mmol/L (136-145)
[2023-03-01 13:50] LABS: Hemoglobin A1c 5.7 % (3.8-5.6)
== END | disposition home or self-care (01) ==
LOC: SDC 08:27 → PAT 13:33
PROVIDERS: PCP Family Medicine; Referring Provider Student in an Organized Health Care Education/Training Program; Visit Provider Student in an Organized Health Care Education/Training Program
DX: Z01.818 Encounter for other preprocedural examination (principal); E11.9 Type 2 diabetes mellitus without complications
CPT/HCPCS: 36415; 80048; 83036; 85025

== ENCOUNTER 2023-04-04 11:05 | Emergency (ER) | payer MEDICARE, MEDICAID, SELFPAY ==
[2023-04-04 11:05] VITALS: BP 175/108; PULSE 78; RESP 18; TEMP 36.2; O2SAT 100; BMI 46.9
--- NOTE | 2023-04-04 11:15 | ED.RN ---
RN RECEIVED A PHONE CALL FROM ' MOTHER WHO STATES SHE WAS JUST SEEN YESTERDAY AT [facility] FOR THE SAME THING WITH A NEGATIVE WORK UP. MOTHER STATES HER PAIN IS RELATED TO KNOWN BLOOD CLOTS AND THAT THE PATIENT IS NOT TAKING HER DAILY MEDICATIONS.
--- NOTE | 2023-04-04 13:03 | ED.VIS.CHEST ---
HPI History of Present Illness Chief Complaint: Chest Pain Narrative Narrative: 52-year-old female past medical history of chronic kidney disease, COPD, hyperlipidemia, hypertension, presents with chest pain that she has had constantly for the last few days. She describes it more as a pressure in her midsternal area. No fevers or chills, no cough. Sometimes is worse with touching. She denies any leg swelling. No DVT or PE risk factors. She does have past medical history of coronary artery disease according to her chart. She presents because of the chest pain and pressure. No pain in her back, no arm pain. [facility] Medical History Abnormal glucose Anemia Anxiety Arthritis Asthma BiPAP (biphasic positive airway pressure) dependence Cardiac murmur Cardiology follow-up encounter Celiac disease Chest pain Chronic kidney disease COPD (chronic obstructive pulmonary disease) Depression Diabetes mellitus Dietary restriction Difficulty swallowing Dyspnea on exertion Fall GERD (gastroesophageal reflux disease) Gout History of chronic back pain History of echocardiogram History of edema History of pain when walking History of stress test Hydronephrosis Hyperlipidemia Hypersomnia Hypertension Hypothyroidism Injury of head and neck Iron deficiency anemia Leg cramps Microcytic anemia Migraine headache Morbid obesity with BMI of 40.0-44.9, adult Non-smoker Noncompliance DAVY treated with BiPAP Post-menopausal Pulmonary embolism Restless leg syndrome Scalp hematoma Shortness of breath on exertion Syncope Thyroid disease UTI (urinary tract infection) Vitamin B12 deficiency Vitamin D deficiency Wears glasses Home Medications citalopram 40 mg tablet 40 mg PO DAILY DEPRESSION/ANXIETY 07/27/19 [History Last Taken 02/10/23] budesonide-formoterol HFA 160 mcg-4.5 mcg/actuation aerosol inhaler (Symbicort) 2 puff inhalation BID COPD 04/02/20 [History Last Taken 02/10/23] rimegepant 75 mg disintegrating tablet (Nurtec ODT) 75 mg PO ONCE PRN MIGRAINES 06/19/20 [History Last Taken 05/04/22] fluticasone fur. 100 mcg-umeclid 62.5 mcg-vilant 25 mcg inhalat.powder (Trelegy Ellipta) 1 ea inhalation DAILY COPD 08/14/20 [History Last Taken 02/10/23] galcanezumab-gnlm 120 mg/mL subcutaneous pen injector (Emgality Pen) 120 mg subcut QMONTH MIGRAINES 08/19/21 [History Last Taken 01/06/23] lorazepam 1 mg tablet 1 mg PO BID PRN ANXIETY 05/04/22 [History Last Taken 02/08/23] progesterone micronized 200 mg capsule 400 mg PO QHS HORMONES 10/11/22 [History Last Taken 02/09/23] tramadol 50 mg tablet 50 mg PO TID PAIN 10/11/22 [History Last Taken 02/10/23] amlodipine 10 mg tablet 10 mg PO DAILY BLOOD PRESSURE #90 tabs 10/28/22 [Rx Last Taken 02/10/23] valsartan 320 mg tablet 160 mg (1/2 x 320 mg) PO BID BLOOD PRESSURE #90 tabs 10/28/22 [Rx Last Taken 02/10/23] albuterol sulfate 90 mcg/actuation breath activated powder inhaler (ProAir RespiClick) 2 inh inhalation 4X/DAY PRN SHORTNESS OF BREATH #1 ea 11/07/22 [Rx Last Taken Unknown] metoclopramide HCl 10 mg tablet (Reglan) 10 mg PO Q6H PRN NAUSEA AND VOMTING #20 tabs 01/07/23 [Rx Last Taken Unknown] atorvastatin 80 mg tablet 80 mg PO DAILY CHOLESTEROL 02/10/23 [History Last Taken 02/10/23] cyclobenzaprine 5 mg tablet 5 mg PO Q8H PRN MUSCLE SPASMS 02/10/23 [History Last Taken 02/08/23] levothyroxine 175 mcg tablet 175 mcg PO DAILY THYROID 02/10/23 [History Last Taken 02/10/23] magnesium oxide 400 mg (241.3 mg magnesium) tablet 400 mg PO DAILY SUPPLEMENT 02/10/23 [History Last Taken 02/09/23] potassium chloride 10 mEq capsule,extended release 10 meq PO DAILY SUPPLEMENT 02/10/23 [History Last Taken 02/10/23] promethazine 25 mg rectal suppository (Promethegan) 25 mg CA Q6H PRN PRN Nausea #12 ea 02/24/23 [Rx Last Taken Unknown] cephalexin 500 mg capsule 500 mg PO BID 03/01/23 [History Last Taken Unknown] gabapentin 100 mg capsule 400 mg PO QHS LEG CRAMPS 03/01/23 [History Last Taken Unknown] cephalexin 500 mg capsule 500 mg PO Q6 7 days #28 CAPSULES 03/04/23 [Rx Last Taken Unknown] clindamycin HCl 300 mg capsule (Cleocin HCl) 300 mg PO Q6H 7 days #28 CAPSULES 03/08/23 [Rx Last Taken Unknown] apixaban 5 mg (74 tabs) tablets in a dose pack (Eliquis DVT-PE Treat 30D Start) 5 mg PO BID #74 tabs 03/27/23 [Rx Last Taken Unknown] Allergy/AdvReac Type Severity Reaction Status Date / Time hydrochlorothiazide AdvReac Intermediate Contributes Verified 04/04/23 11:06 to gout naproxen [From Naprosyn] AdvReac Intermediate Nausea Verified 04/04/23 11:06 aspirin AdvReac Nausea Verified 04/04/23 11:06 Family History Father , Age 72 Hypertension Mother CAD (coronary artery disease) Myocardial infarction, Onset Age: 55 Hypertension Sister CAD (coronary artery disease) Brother Cancer Surgical History History of History of cardiac catheterization History of carpal tunnel surgery of left wrist History of carpal tunnel surgery of right wrist History of left heart catheterization (11/11/20) history of uterine ablation Hx of cystoscopy Social History household members: none housing: apartment Smoking Status: Never smoker alcohol intake: never substance use type: does not use caffeine: No ROS ROS ED ROS Narrative Constitutional: No fever, no chills. HEENT: No sore throat. No neck pain. No loss of vision. No rhinorrhea. Cardiovascular: Positive midsternal chest pain. No palpitations. No pedal edema. Respiratory: No cough, no shortness of breath. Abdominal: No abdominal pain. No nausea. No vomiting. Genitourinary: No dysuria. No hematuria. Musculoskeletal: No myalgias. No arthralgias. Neurologic: No headaches. No dizziness. No lightheadedness. Skin: No rash. No change in color. Psychiatric: No depression. No anxiety. EXAM Physical Exam Narrative Exam Narrative: Afebrile. Vital signs noted. HEENT: Normocephalic. Atraumatic. PERRL, EOMI. Neck soft and supple. No point tenderness or step off. Cardiovascular: Regular rate and rhythm. No murmurs, rubs, or gallops appreciated. Respiratory: No tachypnea. Lungs clear to auscultation bilaterally. Gastrointestinal: Abdomen soft, obese, nontender, with normoactive bowel sounds. No rebound or guarding. Neurological: Awake. Alert. Nonfocal, nonlateralizing. Skin: No rash. Normal color. No pallor. Musculoskeletal: No pedal edema. Full range of motion extremities. Const Vital Signs: 04/04/23 11:05 04/04/23 11:48 04/04/23 13:08 Temperature 97.1 F L Temperature Source Temporal Pulse Rate 78 76 Respiratory Rate 18 16 Respiratory Effort Normal Non-Labored Blood Pressure 175/108 H 161/102 H Blood Pressure Mean 130 121 Pulse Ox 100 99 Oxygen Delivery Method Room Air Room Air 04/04/23 13:08 04/04/23 15:00 Temperature Temperature Source Pulse Rate 96 Respiratory Rate 18 Respiratory Effort Blood Pressure 148/92 H Blood Pressure Mean 110 Pulse Ox 99 97 Oxygen Delivery Method Room Air Room Air Heart Score History: Slightly/Non-Suspicious ECG: Normal Age: >45 - <65 years Risk Factors: >/= 3 Risk Factors or History of CAD Score: 3 MDM MDM MDM Narrative Medical decision making narrative: The differential diagnosis is ACS versus pneumothorax versus pneumonia. I have low suspicion for aortic dissection as she has no tearing back pain and pulses are equal bilaterally. She may also be having a COPD exacerbation. Additionally, she states her pain is reproducible. Her history and physical does not support. Pneumonia or pneumothorax. EKG was obtained and interpreted by myself independently as normal sinus rhythm at 100 bpm without ectopy or acute ST changes. No STEMI. In review of her laboratory work, WBC count normal of 8.6, hemoglobin stable at 11.3, platelet count normal at 313. Her D-dimer is elevated at 0.86, but it was higher above 1. When I reviewed her prior ED workup, and reviewed her laboratory work she has had chronically elevated D-dimer. During her last visit within the last week, she was diagnosed with bilateral pulmonary emboli. She neglected to disclose this during her history and physical. Hence, I do feel this is why she has a chronically elevated D-dimer and I do not feel that repeat CTA of the chest is indicated as she states that she is currently taking her blood thinner. Chest x-ray in 1 view interpreted by myself independently shows cardiomegaly but no evidence of pneumothorax or pneumonia. I reviewed the radiology report which confirms my independent interpretation. Her initial high-sensitivity troponin is 6. Patient states that she is enrolled in pain management and usually takes Tylenol or tramadol. She is requesting something for pain . I reviewed her prior records. I do not feel that IV morphine or narcotics are indicated when she was given a Madelia tablet here. I do not feel she requires observation or admission at this time. I feel she can be discharged as long as her second troponin is negative. Her second HST was obtained and reviewed and is 8 for negative delta less than 20. Return instructions were reviewed. Disposition is discharged. History & Record Review Discussion w/independent historian: Patient Additional record(s) reviewed:: Prior ED visit and Prior labs Lab Data Attestation: I reviewed the patient's lab results. Labs: Laboratory Results - last 24 hr 04/04/23 04/04/23 12:00 14:57 WBC 8.6 RBC 3.71 L Hgb 11.3 L Hct 36.3 L MCV 97.8 MCH 30.5 MCHC 31.1 L RDW Std Deviation 53.5 H RDW Coeff of Alfredo 14.8 H Plt Count 313 MPV 11.4 Immature Gran % (Auto) 0.500 Neut % (Auto) 77.6 H Lymph % (Auto) 12.3 L [place] % (Auto) 5.2 Eos % (Auto) 3.7 Baso % (Auto) 0.7 Absolute Neuts (auto) 6.7 Absolute Lymphs (auto) 1.06 Nucleated RBC % 0 D-Dimer Quant (PE/DVT) 0.86 H* Sodium 141 Potassium 3.9 Chloride 107 Carbon Dioxide 25.0 Anion Gap 9 BUN 6 L Creatinine 1.08 H Estim Creat Clear Calc 82.15 Est GFR (MDRD) Af Amer 68 Est GFR (MDRD) Non-Af 57 L BUN/Creatinine Ratio 5.6 L Glucose 140 H Calcium 9.7 Troponin I High Sens 6 8 Radiography Diagnostic Testing: Clinical Impression(s) from Imaging Studies Chest X-Ray 04/04/23 13:15 IMPRESSION: Mild cardiomegaly. Electronically Signed: Seun Vieira MD at 13:36 EST , Discharge Plan Triage Chief Complaint: Chest Pain ED Provider: [place] Dx/Rx/DC Orders Clinical Impression: Bilateral pulmonary embolism, Chest pain, Chronic kidney disease Instructions: Embolism Pulmonary Dc, ED Chest Pain, Uncertain Cause Prescriptions: No Action budesonide-formoterol [Symbicort] 160-4.5 mcg/actuation HFA aerosol inhaler 2 puff INHALATION BID Nurtec ODT 75 mg tablet,disintegrating 75 mg PO ONCE PRN (Reason: MIGRAINES ) Emgality Pen 120 mg/mL pen injector 120 mg subcut QMONTH Patient Comments: PT STATES THEY WERE DUE TO GET THIS A WEEK AGO BUT CANNOT AFFORD TO DO SO AT THIS TIME 9AS OF 02-10-23) Trelegy Ellipta 100-62.5-25 mcg blister with device 1 ea INHALATION DAILY lorazepam 1 mg tablet 1 mg PO BID PRN (Reason: ANXIETY ) tramadol 50 mg tablet 50 mg PO TID progesterone micronized 200 mg capsule 400 mg PO QHS ProAir RespiClick 90 mcg/actuation aerosol powdr breath activated 2 inh INHALATION 4X/DAY PRN (Reason: SHORTNESS OF BREATH ) Qty: 1 0RF cyclobenzaprine 5 mg tablet 5 mg PO Q8H PRN (Reason: MUSCLE SPASMS ) magnesium oxide 400 mg (241.3 mg magnesium) tablet 400 mg PO DAILY potassium chloride 10 mEq capsule, extended release 10 meq PO DAILY levothyroxine 175 mcg tablet 175 mcg PO DAILY atorvastatin 80 mg Tablet 80 mg PO DAILY gabapentin 100 mg capsule 400 mg PO QHS cephalexin 500 mg capsule 500 mg PO BID Patient Comments: TAKE 1 CAPSULE BY MOUTH TWICE DAILY clindamycin HCl [Cleocin HCl] 300 mg capsule 300 mg PO Q6H 7 Days Qty: 28 0RF metoclopramide HCl [Reglan] 10 mg tablet 10 mg PO Q6H PRN (Reason: NAUSEA AND VOMTING ) Qty: 20 0RF promethazine [Promethegan] 25 mg suppository 25 mg CA Q6H PRN PRN (Reason: Nausea) Qty: 12 0RF cephalexin 500 mg capsule 500 mg PO Q6 7 Days Qty: 28 0RF Eliquis DVT-PE Treat 30D Start 5 mg (74 tabs) tablets,dose pack 5 mg PO BID Qty: 74 0RF Rx Instructions: Starter pack of Eliquis for Pulmonary Emboli citalopram 40 mg tablet 40 mg PO DAILY amlodipine 10 mg tablet 10 mg PO DAILY Qty: 90 3RF valsartan 320 mg tablet 160 mg PO BID Qty: 90 3RF Primary Care Provider: Halina Johnson Referrals: Halina Johnson, [Primary Care Provider] - 3-5 Days Disposition Disposition: Home, Self Care
[2023-04-04 13:08] VITALS: BP 161/102; PULSE 76; RESP 16; O2SAT 99
[2023-04-04 13:11] LABS: Absolute Lymphocyte Count 1.06 X10^3/uL (0.83-4.51); Absolute Neutrophil Count 6.7 X10^3/uL (2.0-7.7); Basophil# 0.06 X10^3/uL; Basophil% 0.7 % (0-1); Eosinophil# 0.32 X10^3/uL; Eosinophils% 3.7 % (0-5); Hematocrit 36.3 % (37-47); Hemoglobin 11.3 g/dL (12.0-15.0); Lymphocyte # 1.06 X10^3/ul (0.83-4.51); Lymphocyte % 12.3 % (19-41); Mean Corp Hgb Conc 31.1 g/dL (32-36); Mean Corpuscular Hgb 30.5 pg (27.0-32.0); Mean Corpuscular Volume 97.8 fL (81-99); Mean Platelet Vol. 11.4 fl (6.2-12.0); Monocyte# 0.45 X10^3/uL; Monocyte% 5.2 % (0-10); NRBC Flagged by Analyzer 0 % (0-5); Neutrophil % 77.6 % (47-70); Platelet Count 313 K/mm3 (150-450); RBC Distribution Width CV 14.8 % (11.6-14.6); RBC Distribution Width SD 53.5 fl (35.1-43.9); Red Blood Count 3.71 M/mm3 (4.2-5.4); White Blood Count 8.6 K/mm3 (4.4-11.0)
--- NOTE | 2023-04-04 13:15 | RAD_ITS ---
STUDY: X-RAY CHEST REASON FOR EXAM: Female, 52 years old. Chest pain TECHNIQUE: Single AP portable view of the chest. COMPARISON: Comparison is made with prior study dated March 27, 2023. FINDINGS: EKG electrodes are seen. Stable elevation of the right hemidiaphragm. There is no demonstrated pleural abnormality. There is mild cardiac enlargement. Normal mediastinum and kumar. Normal visualized pulmonary arteries. Normal visualized aortic arch and descending thoracic aorta. Normal visualized thoracic spine. Normal visualized ribs, clavicles, and shoulders. There is no demonstrated abnormality of the visualized soft tissue structures of the upper abdomen. RAD/Chest 1 View (Portable) IMPRESSION: Mild cardiomegaly. Electronically Signed: Seun Vieira MD at 13:36 EST ,
[2023-04-04 13:22] LABS: D-Dimer Quantitative (DVT/PE) 0.86 FEU/ug/m (0.27-0.49)
[2023-04-04 13:26] LABS: Anion Gap 9 (5-15); BUN 6 mg/dL (7-18); BUN/Creat Ratio 5.6 RATIO (10-20); Calcium,Total 9.7 mg/dL (8.5-10.1); Chloride 107 mmol/L (98-107); Creatinine, Serum 1.08 mg/dL (0.55-1.02); EST Glomerular Filtration Rate 57 mL/min (>60); Est Glom Filt Rate - Afr Amer 68 mL/min (>60); Estimated Creatinine Clearance 82.15 ml/min; Glucose 140 mg/dL (74-106); Potassium 3.9 mmol/L (3.5-5.1); Sodium Level 141 mmol/L (136-145); Troponin-I HS (w/2H Reflex) 6 pg/mL (3.0-54.0)
[2023-04-04 15:00] VITALS: BP 148/92; PULSE 96; RESP 18; O2SAT 97
[2023-04-04] MEDS: HYDROcodone Bitartrate/Apap 5/325 Tablet PO (15:05)
[2023-04-04 15:07] LABS: Reflex Troponin-HS? (from REC) Y
[2023-04-04 15:50] LABS: Troponin-I HS 8 pg/mL (3.0-54.0)
[2023-04-04 16:11] VITALS: BP 138/77; PULSE 82; RESP 15; O2SAT 96
[2023-04-06 12:21] LABS: T4 Free Direct 0.98 ng/dL (0.76-1.46)
== END 2023-04-04 16:12 | disposition home or self-care (01) ==
PROVIDERS: Emergency Provider Emergency Medicine; PCP Family Medicine; Visit Provider Emergency Medicine
DX: I26.99 Other pulmonary embolism without acute cor pulmonale (principal); J44.9 Chronic obstructive pulmonary disease, unspecified; E11.22 Type 2 diabetes mellitus with diabetic chronic kidney disease; R07.9 Chest pain, unspecified; I12.9 Hypertensive chronic kidney disease with stage 1 through stage 4 chronic kidney disease, or unspecified chronic kidney disease; E78.5 Hyperlipidemia, unspecified; N18.9 Chronic kidney disease, unspecified; G47.33 Obstructive sleep apnea (adult) (pediatric); Z79.01 Long term (current) use of anticoagulants; Z79.899 Other long term (current) drug therapy; Z79.51 Long term (current) use of inhaled steroids; Z86.711 Personal history of pulmonary embolism
CPT/HCPCS: 71045; 80048; 84439; 84443; 84484; 85025; 85379; 93005; 99283; A4216

== ENCOUNTER 2023-04-22 17:41 | Emergency (ER) | payer MEDICARE, MEDICAID, SELFPAY ==
[2023-04-22 17:42] VITALS: BP 167/104; PULSE 98; RESP 16; TEMP 35.9; O2SAT 99
[2023-04-22 17:43] VITALS: BP 167/104; PULSE 98; RESP 18; TEMP 35.9; O2SAT 99; BMI 49.5
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
[2023-04-22] MEDS: Acetaminophen 325 MG Tablet 650 MG PO (18:47)
[2023-04-22 20:28] VITALS: BP 158/79; BP 159/88; PULSE 80; RESP 16; TEMP 36.3; O2SAT 98
== END 2023-04-22 20:30 | disposition home or self-care (01) ==
PROVIDERS: Emergency Provider Emergency Medicine; PCP Family Medicine; Visit Provider Emergency Medicine
DX: S16.1XXA Strain of muscle, fascia and tendon at neck level, initial encounter (principal); J44.9 Chronic obstructive pulmonary disease, unspecified; E66.01 Morbid (severe) obesity due to excess calories; Z68.42 Body mass index [BMI] 45.0-49.9, adult; S39.012A Strain of muscle, fascia and tendon of lower back, initial encounter; V43.62XA Car passenger injured in collision with other type car in traffic accident, initial encounter; Y93.89 Activity, other specified; Y99.8 Other external cause status; I10 Essential (primary) hypertension; Z79.01 Long term (current) use of anticoagulants; Z79.51 Long term (current) use of inhaled steroids; Z79.899 Other long term (current) drug therapy; Z86.711 Personal history of pulmonary embolism
CPT/HCPCS: 70450; 72125; 72131; 99283

== ENCOUNTER → 2023-04-25 | Outpatient (CLI) | payer MEDICARE, MEDICAID, SELFPAY ==
[2023-04-25 19:24] LABS: T4 Free Direct 0.21 ng/dL (0.76-1.46)
== END | disposition home or self-care (01) ==
LOC: MFPLAB 15:27
PROVIDERS: PCP Family Medicine; Visit Provider Family Medicine
DX: E03.9 Hypothyroidism, unspecified (principal)
CPT/HCPCS: 36415; 84439; 84443

== ENCOUNTER 2023-05-01 19:46 | Emergency (ER) | payer MEDICARE, MEDICAID, SELFPAY ==
[2023-05-01 19:47] VITALS: BP 173/95; PULSE 89; RESP 16; TEMP 36.2; O2SAT 98; BMI 50.1
--- NOTE | 2023-05-01 20:08 | ED.VIS.LOWEX ---
HPI History of Present Illness HPI Narrative: 52-year-old female history of diabetes, CAD, COPD prior stroke. Fell getting out of bed last night did not think much of it today she had swelling and pain to her right ankle. Denies any other injuries. She is on Eliquis did not hit her head has no headache. No neck pain. Can walk but says has more pain in the ankle. Chief Complaint: Lower Extremity Injury Informant: patient Occured/Mechanism Mechanism/Context: Yes injury and Yes blunt trauma Onset/Context/Timing Onset: Yesterday Context: Sudden Onset Timing: Continuous Quality of Pain: Dull and Aching Current Severity: Mild Maximum Severity: Mild Associated Symptoms Associated Symptoms: Negative for Parasthesia, Weakness or Loss of Funtion Narrative Narrative: 52-year-old complaining of right ankle pain after fall last night. Prior history of a fracture of the ankle but no prior surgery. No other complaints. Prior similar symptoms: No Recent Illness/Hospitalization: No PFSH PFSH Medical History Abnormal glucose Anemia Anxiety Arthritis Asthma BiPAP (biphasic positive airway pressure) dependence Cardiac murmur Cardiology follow-up encounter Celiac disease Chest pain Chronic kidney disease COPD (chronic obstructive pulmonary disease) Depression Diabetes mellitus Dietary restriction Difficulty swallowing Dyspnea on exertion Fall GERD (gastroesophageal reflux disease) Gout History of chronic back pain History of echocardiogram History of edema History of pain when walking History of stress test Hydronephrosis Hyperlipidemia Hypersomnia Hypertension Hypothyroidism Injury of head and neck Iron deficiency anemia Leg cramps Microcytic anemia Migraine headache Morbid obesity with BMI of 40.0-44.9, adult Non-smoker Noncompliance DAVY treated with BiPAP Post-menopausal Pulmonary embolism Restless leg syndrome Scalp hematoma Shortness of breath on exertion Syncope Thyroid disease UTI (urinary tract infection) Vitamin B12 deficiency Vitamin D deficiency Wears glasses Home Medications citalopram 40 mg tablet 40 mg PO DAILY DEPRESSION/ANXIETY 07/27/19 [History Last Taken 02/10/23] budesonide-formoterol HFA 160 mcg-4.5 mcg/actuation aerosol inhaler (Symbicort) 2 puff inhalation BID COPD 04/02/20 [History Last Taken 02/10/23] rimegepant 75 mg disintegrating tablet (Nurtec ODT) 75 mg PO ONCE PRN MIGRAINES 06/19/20 [History Last Taken 05/04/22] fluticasone fur. 100 mcg-umeclid 62.5 mcg-vilant 25 mcg inhalat.powder (Trelegy Ellipta) 1 ea inhalation DAILY COPD 08/14/20 [History Last Taken 02/10/23] galcanezumab-gnlm 120 mg/mL subcutaneous pen injector (Emgality Pen) 120 mg subcut QMONTH MIGRAINES 08/19/21 [History Last Taken 01/06/23] lorazepam 1 mg tablet 1 mg PO BID PRN ANXIETY 05/04/22 [History Last Taken 02/08/23] progesterone micronized 200 mg capsule 400 mg PO QHS HORMONES 10/11/22 [History Last Taken 02/09/23] tramadol 50 mg tablet 50 mg PO TID PAIN 10/11/22 [History Last Taken 02/10/23] amlodipine 10 mg tablet 10 mg PO DAILY BLOOD PRESSURE #90 tabs 10/28/22 [Rx Last Taken 02/10/23] valsartan 320 mg tablet 160 mg (1/2 x 320 mg) PO BID BLOOD PRESSURE #90 tabs 10/28/22 [Rx Last Taken 02/10/23] albuterol sulfate 90 mcg/actuation breath activated powder inhaler (ProAir RespiClick) 2 inh inhalation 4X/DAY PRN SHORTNESS OF BREATH #1 ea 11/07/22 [Rx Last Taken Unknown] metoclopramide HCl 10 mg tablet (Reglan) 10 mg PO Q6H PRN NAUSEA AND VOMTING #20 tabs 01/07/23 [Rx Last Taken Unknown] atorvastatin 80 mg tablet 80 mg PO DAILY CHOLESTEROL 02/10/23 [History Last Taken 02/10/23] cyclobenzaprine 5 mg tablet 5 mg PO Q8H PRN MUSCLE SPASMS 02/10/23 [History Last Taken 02/08/23] levothyroxine 175 mcg tablet 175 mcg PO DAILY THYROID 02/10/23 [History Last Taken 02/10/23] magnesium oxide 400 mg (241.3 mg magnesium) tablet 400 mg PO DAILY SUPPLEMENT 02/10/23 [History Last Taken 02/09/23] potassium chloride 10 mEq capsule,extended release 10 meq PO DAILY SUPPLEMENT 02/10/23 [History Last Taken 02/10/23] promethazine 25 mg rectal suppository (Promethegan) 25 mg MS Q6H PRN PRN Nausea #12 ea 02/24/23 [Rx Last Taken Unknown] gabapentin 100 mg capsule 400 mg PO QHS LEG CRAMPS 03/01/23 [History Last Taken Unknown] apixaban 5 mg (74 tabs) tablets in a dose pack (Eliquis DVT-PE Treat 30D Start) 5 mg PO BID #74 tabs 03/27/23 [Rx Last Taken Unknown] Allergy/AdvReac Type Severity Reaction Status Date / Time hydrochlorothiazide AdvReac Intermediate Contributes Verified 05/01/23 19:48 to gout naproxen [From Naprosyn] AdvReac Intermediate Nausea Verified 05/01/23 19:48 aspirin AdvReac Nausea Verified 05/01/23 19:48 Family History Father , Age 72 Hypertension Mother CAD (coronary artery disease) Myocardial infarction, Onset Age: 55 Hypertension Sister CAD (coronary artery disease) Brother Cancer Surgical History History of History of cardiac catheterization History of carpal tunnel surgery of left wrist History of carpal tunnel surgery of right wrist History of left heart catheterization (11/11/20) history of uterine ablation Hx of cystoscopy Social History household members: none housing: apartment Smoking Status: Never smoker alcohol intake: never substance use type: does not use caffeine: No ROS ROS ED ROS Narrative Denies recent illness. Review of Systems ROS Unobtainable: Denies due to encephalopathy Constitutional Constitutional ED: Denies chills or fever(s) Eyes Eyes: Denies blurry vision ENT ENT ED: Denies ear pain Cardiovascular Cardiovascular: Denies chest pain or palpitations Respiratory/Chest Respiratory/Chest: Denies cough or dyspnea Gastrointestinal Gastrointestinal: Denies abdominal pain Genitourinary Genitourinary ED: Denies dysuria or hematuria Musculoskeletal Musculoskeletal: Denies arthralgias or back pain Integumentary Denies abscess or Abrasions Neurologic Neurologic: Denies headache(s) Psychiatric Psychiatric: Denies anxiety Endocrine Endocrinology: Denies polydipsia or polyphagia Hematologic/Lymphatic Hematologic/Lymphatic: Denies lymphadenopathy Allergic/Immunologic Allergic/Immunologic ED: Denies mouth swelling or tongue swelling EXAM Physical Exam Narrative Exam Narrative: 52-year-old female no acute distress vital signs stable afebrile. H EENT exam unremarkable atraumatic. Nontender. No signs of trauma. Pupils round react to light. Neck nontender. Back and spine nontender. Lungs clear to auscultation bilaterally. Heart regular rate and rhythm no murmur. Chest wall and ribs nontender. Abdomen soft nontender. Pelvic girdle intact. Moving all 4 extremities. Neurovascular intact. 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 Full range of motion upper extremities nontender. Normal range of motion lower extremities. Mild tenderness and swelling over the medial and lateral malleolus. No gross bony deformity. Dorsi and plantarflexion intact. DP pulse palpable. Able to wiggle her toes. Foot itself is nontender. Normal touch sensation. Neurologically she is awake and alert no focal motor deficits. Const Vital Signs: 05/01/23 19:47 Temperature 97.1 F L Temperature Source Temporal Pulse Rate 89 Respiratory Rate 16 Blood Pressure 173/95 H Blood Pressure Mean 121 Pulse Ox 98 Oxygen Delivery Method Room Air Positive well nourished and well developed; Negative for cachectic, contractures or unkempt General Appearance ED: well developed and NAD; Negative for unkempt, cachectic or contractures Nutritional Appearance: Negative for cachectic HEENT Reports moist mucous membranes normocephalic and atraumatic; Negative for trauma or tenderness Eyes PERRL General Eye ED: Negative for other Neck full ROM and supple Thyroid: Negative for tender Lymph Lymphatic: Negative for other Chest Wall inspection of chest normal and palpation of chest normal Chest: Negative for other Resp normal respiratory effort, no retractions and clear to auscultation bilaterally Effort and Inspection: Negative for pain with movement Auscultation: Negative for rales, rhonchi, wheezes or diminished lung sounds Cardio regular rate, regular rhythm, S1 normal heart sound, S2 normal heart sound and no murmurs Rate: Negative for bradycardia or tachycardic Rhythm: Negative for abnormal rhythm Bruits: Negative for other GI non-tender, non-distended and no masses Inspection: Negative for abdominal distention Auscultation: normoactive bowel sounds Palpation: soft; Negative for tender or guarding Back/Spine no CVA tenderness General Back: Negative for CVA tenderness or swelling Cervical Spine: Negative for cervical spine tenderness Thoracic Spine / Upper Back: Negative for thoracic spinal tenderness Lumbar Spine / Lower Back: Negative for lumbar spinal tenderness Extremity full ROM; Negative for normal to inspection Extremity Narrative: Tenderness right ankle medial lateral malleolus. No gross bony deformity. Dorsi plantarflexion intact. Palpable DP pulse. Achilles tendon intact. Foot nontender. Able to wiggle toes. Normal touch sensation. General Extremety ED: Yes edema; Negative for cyanosis General Extremity: edema; Negative for cyanosis Neuro oriented x3, CN's II-XII intact bilaterally and moves all extremities Sensorium / Orientation: alert, oriented to person, oriented to place and oriented to time; Negative for orientation impaired, confused, lethargic or stuporous Motor Exam: strength 5/5 throughout Psych mental status grossly normal Appearance: Negative for unkempt Speech: No other Mood & Affect: Negative for anxious Skin no wounds Lesions: no lesions Rashes: no rashes Trauma: Negative for abrasion, laceration or puncture MDM MDM MDM Narrative Medical decision making narrative: 52-year-old female fell last night planing of right ankle pain x-ray being obtained. No signs of infection. No signs of dislocation. Went back into reevaluate the patient and I believe she left without being discharged. Her x-rays were negative. She is can be discharged with a Aircast and treated as an ankle sprain. History & Record Review Discussion w/independent historian: Patient Additional record(s) reviewed:: Prior inpatient record, Prior outpatient record, Prior ED visit and Prior labs Radiography Diagnostic Testing: Right ankle x-ray, 3 views, interpreted by myself shows no acute fracture. No dislocation. Discharge Plan Triage Chief Complaint: Lower Extremity Injury ED Provider: Pipo Merritt Dx/Rx/DC Orders Clinical Impression: Ankle sprain, Chronic anticoagulation, History of diabetes mellitus, Fall Instructions: ED Ankle Sprain (Adult) Prescriptions: No Action budesonide-formoterol [Symbicort] 160-4.5 mcg/actuation HFA aerosol inhaler 2 puff INHALATION BID Nurtec ODT 75 mg tablet,disintegrating 75 mg PO ONCE PRN (Reason: MIGRAINES ) Emgality Pen 120 mg/mL pen injector 120 mg subcut QMONTH Patient Comments: PT STATES THEY WERE DUE TO GET THIS A WEEK AGO BUT CANNOT AFFORD TO DO SO AT THIS TIME 9AS OF 02-10-23) Trelegy Ellipta 100-62.5-25 mcg blister with device 1 ea INHALATION DAILY lorazepam 1 mg tablet 1 mg PO BID PRN (Reason: ANXIETY ) tramadol 50 mg tablet 50 mg PO TID progesterone micronized 200 mg capsule 400 mg PO QHS ProAir RespiClick 90 mcg/actuation aerosol powdr breath activated 2 inh INHALATION 4X/DAY PRN (Reason: SHORTNESS OF BREATH ) Qty: 1 0RF cyclobenzaprine 5 mg tablet 5 mg PO Q8H PRN (Reason: MUSCLE SPASMS ) magnesium oxide 400 mg (241.3 mg magnesium) tablet 400 mg PO DAILY potassium chloride 10 mEq capsule, extended release 10 meq PO DAILY levothyroxine 175 mcg tablet 175 mcg PO DAILY atorvastatin 80 mg Tablet 80 mg PO DAILY gabapentin 100 mg capsule 400 mg PO QHS metoclopramide HCl [Reglan] 10 mg tablet 10 mg PO Q6H PRN (Reason: NAUSEA AND VOMTING ) Qty: 20 0RF promethazine [Promethegan] 25 mg suppository 25 mg MS Q6H PRN PRN (Reason: Nausea) Qty: 12 0RF Eliquis DVT-PE Treat 30D Start 5 mg (74 tabs) tablets,dose pack 5 mg PO BID Qty: 74 0RF Rx Instructions: Starter pack of Eliquis for Pulmonary Emboli citalopram 40 mg tablet 40 mg PO DAILY amlodipine 10 mg tablet 10 mg PO DAILY Qty: 90 3RF valsartan 320 mg tablet 160 mg PO BID Qty: 90 3RF Primary Care Provider: Halina Johnson Referrals: Halina Johnson, DO [Primary Care Provider] - 1 Week if not improving Activity Restrictions/Additional Instructions: X-rays look good. No broken bone. Treated as an ankle sprain. Ice and elevate. Motrin and Tylenol for pain and inflammation. Aircast to help you walk. This should progressively improve if not getting better follow-up with your doctor to have it reevaluated. Disposition Disposition: Home, Self Care
--- NOTE | 2023-05-01 20:15 | RAD_ITS ---
STUDY: X-RAY - RIGHT ANKLE REASON FOR EXAM: Female, 52 years old. atraumatic pain TECHNIQUE: 3 view(s) of the ankle. COMPARISON: None. FINDINGS: Normal visualized distal tibia and fibula. Normal medial and lateral malleoli. Normal tibiotalar articulation and ankle mortise. Normal visualized talus and calcaneus. Small plantar calcaneal enthesophyte. The visualized subtalar, talonavicular, calcaneocuboid and tarsal articulations are normal. The soft tissue structures are unremarkable. RAD/Ankle min 3 Views IMPRESSION: Normal x-ray examination of the ankle. Electronically Signed: Casey Pichardo MD at 21:27 EST ,
[2023-05-01 21:16] VITALS: BP 156/78; PULSE 81; RESP 16; TEMP 36.1; O2SAT 99
== END 2023-05-01 21:17 | disposition home or self-care (01) ==
PROVIDERS: Emergency Provider Emergency Medicine; PCP Family Medicine; Visit Provider Emergency Medicine
DX: S93.401A Sprain of unspecified ligament of right ankle, initial encounter (principal); J44.9 Chronic obstructive pulmonary disease, unspecified; E11.22 Type 2 diabetes mellitus with diabetic chronic kidney disease; I25.10 Atherosclerotic heart disease of native coronary artery without angina pectoris; G47.33 Obstructive sleep apnea (adult) (pediatric); N18.9 Chronic kidney disease, unspecified; Z79.01 Long term (current) use of anticoagulants; Z86.73 Personal history of transient ischemic attack (TIA), and cerebral infarction without residual deficits; W19.XXXA Unspecified fall, initial encounter; Z86.711 Personal history of pulmonary embolism
CPT/HCPCS: 73610; 99282

== ENCOUNTER → 2023-05-16 | Outpatient (CLI) | payer MEDICARE, MEDICAID, SELFPAY ==
--- NOTE | 2023-05-16 12:44 | RAD_ITS ---
STUDY: X-RAY CHEST REASON FOR EXAM: Female, 52 years old. Shortness of breath. TECHNIQUE: Frontal and lateral views of the chest on 3 images. COMPARISON: 04/04/2023 FINDINGS: The lungs are clear and expanded. There is no demonstrated pleural abnormality. Normal size heart. Normal mediastinum and kumar. Normal visualized pulmonary arteries. Normal visualized aortic arch and descending thoracic aorta. Normal visualized thoracic spine. Normal visualized ribs, clavicles, and shoulders. No abnormality of the visualized soft tissue structures of the upper abdomen. RAD/Chest PA and Lateral IMPRESSION: No interval change. Normal x-ray examination of the chest. Electronically Signed: Mat Barbosa MD at 9:45 EDT ,
[2023-05-16 15:35] LABS: Absolute Lymphocyte Count 1.48 X10^3/uL (0.83-4.51); Absolute Neutrophil Count 7.9 X10^3/uL (2.0-7.7); Basophil# 0.15 X10^3/uL; Basophil% 1.4 % (0-1); Eosinophil# 0.53 X10^3/uL; Eosinophils% 4.9 % (0-5); Hemoglobin 11.3 g/dL (12.0-15.0); Lymphocyte # 1.48 X10^3/ul (0.83-4.51); Lymphocyte % 13.8 % (19-41); Mean Corp Hgb Conc 30.5 g/dL (32-36); Mean Corpuscular Hgb 28.3 pg (27.0-32.0); Mean Corpuscular Volume 92.5 fL (81-99); Mean Platelet Vol. 11.5 fl (6.2-12.0); Monocyte# 0.54 X10^3/uL; NRBC Flagged by Analyzer 0 % (0-5); Neutrophil # 7.94 X10^3/uL (2.7-7.7); Neutrophil % 74.1 % (47-70); Platelet Count 322 K/mm3 (150-450); RBC Distribution Width CV 17.4 % (11.6-14.6); RBC Distribution Width SD 57.2 fl (35.1-43.9); White Blood Count 10.7 K/mm3 (4.4-11.0)
[2023-05-16 16:03] LABS: BNP,B-Type NATRIURETIC PEPTIDE 16.5 pg/mL (0-100)
[2023-05-16 17:08] LABS: ALB/GLOB Ratio 0.8 RATIO (0.9-2.4); AST(SGOT) 60 U/L (15-37); Alanine Aminotransfer ALT/SGPT 49 U/L (13-56); Albumin, Serum 3.6 g/dL (3.2-5.0); Alkaline Phosphatase 142 U/L (45-117); Anion Gap 10 (5-15); BUN 11 mg/dL (7-18); BUN/Creat Ratio 8.7 RATIO (10-20); Calcium,Total 10.2 mg/dL (8.5-10.1); Chloride 102 mmol/L (98-107); Creatinine, Serum 1.27 mg/dL (0.55-1.02); EST Glomerular Filtration Rate 47 mL/min (>60); Est Glom Filt Rate - Afr Amer 57 mL/min (>60); Free T3 1.1 pg/mL (2.18-3.98); Globulin 4.8 g/dL (2.2-4.2); Glucose 140 mg/dL (74-106); Potassium 4.3 mmol/L (3.5-5.1); Protein, Total 8.4 g/dL (6.4-8.2); Sodium Level 136 mmol/L (136-145)
[2023-05-18 11:13] LABS: T4 Free Direct 0.42 ng/dL (0.76-1.46)
== END | disposition home or self-care (01) ==
PROVIDERS: PCP Family Medicine; Referring Provider Family Medicine; Visit Provider Family Medicine
DX: I10 Essential (primary) hypertension (principal); E03.9 Hypothyroidism, unspecified; R06.02 Shortness of breath
CPT/HCPCS: 36415; 71046; 80053; 83880; 84439; 84481; 85025

== ENCOUNTER 2023-05-22 02:59 | Emergency (ER) | payer MEDICARE, MEDICAID, SELFPAY ==
[2023-05-22 03:00] VITALS: BP 167/88; PULSE 68; RESP 16; TEMP 36.3; O2SAT 97; BMI 52.1
--- NOTE | 2023-05-22 03:20 | CT_ITS ---
INDICATION: throat swelling EXAMINATION: CT NECK - CT Soft Tissue Neck W/O Contrast Injection TECHNIQUE: Multiple axial images were obtained of the neck. A radiation dose optimization technique was used for this scan. IV Contrast dosage and agent: None. COMPARISON: Cervical spine April 22, 2023. FINDINGS: Pharyngeal tonsils are symmetric and normal in appearance. Parapharyngeal fat is preserved. Parotid and submandibular glands are normal without ductal ectasia. Base of the tongue is grossly symmetric on noncontrast exam. Normal epiglottis. No prevertebral soft tissue thickening. Medial course of the common carotid arteries are noted along the prevertebral soft tissues with mild scattered atherosclerosis. Three-vessel aortic arch. No cervical adenopathy. Diminutive thyroid. No radiodense soft tissue foreign body along the imaged aerodigestive tract. No acute finding within the upper lungs. Superficial soft tissues are unremarkable. Unremarkable orbits. Limited intracranial visualization without hydrocephalus. Acute osseous finding. Anterior bridging osteophytes C7 with mild degenerative reversal of normal cervical spine. No listhesis. Mildly heterogeneous marrow along the mandible and maxilla without discrete pathologic abscess without overlying soft tissue inflammation. Minimal scattered ethmoid sinus mucoperiosteal thickening. Mastoid air cells are clear. CT/Soft Tissue Neck without Contr IMPRESSION: No evidence of superficial soft tissue or pharyngeal abscess or focal inflammatory change. Minimal ethmoid sinus mucoperiosteal thickening Electronically Signed: Ryland Dasilva MD at 5:58 EDT ,
--- NOTE | 2023-05-22 03:20 | EKG12_ITS ---
Test Reason : SOB Blood Pressure : / mmHG Vent. Rate : 078 BPM Atrial Rate : 078 BPM P-R Int : 162 ms QRS Dur : 084 ms QT Int : 426 ms P-R-T Axes : 039 -01 215 degrees QTc Int : 485 ms Normal sinus rhythm Nonspecific ST and T wave abnormality Abnormal ECG Confirmed by Wes Medeiros ([id number]), editor dictionary SONJA ZABALA ([id number]) on 05/24/2023 9:06:22 AM Referred By: VARSHA Confirmed By:Wes Medeiros
--- NOTE | 2023-05-22 03:20 | CT_ITS ---
INDICATION: paresthesias EXAMINATION: CT BRAIN - CT Head or Brain W/O Contrast Injection TECHNIQUE: Multiple axial images were obtained of the head without intravenous contrast. A radiation dose optimization technique was used for this scan. IV Contrast dosage and agent: None. COMPARISON: April 22, 2023 FINDINGS: BRAIN PARENCHYMA: No intra- or extra-axial hemorrhage. No evidence of acute infarct. No intracranial mass or mass effect. Minimal periventricular and subcortical white matter hypodense chronic small vessel white matter ischemic change compatible with age. There is preservation of the [place]/white matter interface. Posterior fossa structures are unremarkable. CSF SPACES: Cerebral volume appropriate for age. No hydrocephalus. Basal cisterns are patent. CALVARIUM, SKULL BASE, PARANASAL SINUSES AND MASTOID AIR CELLS: No acute osseous finding. Paransasal sinuses are clear. Mastoid air cells are clear. ORBITS: Both globes, extraocular muscles, optic nerves and retrobulbar fat appear unremarkable. ASPECTS Score for Acute Strokes: 10 CT/Brain/Head without Contrast IMPRESSION: No CT evidence of acute intracranial hemorrhage or injury. Minimal senescent changes compatible with age. Electronically Signed: Ryland Dasilva MD at 4:51 EDT Reading Location ID and State: [facility] / [place] Tel , Service support ,
--- NOTE | 2023-05-22 03:22 | EX.ED.DYSGE1 ---
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 Symptoms have been progressive the past couple days. She denies having fever or chills. She has been able to eat and drink without difficulty. She has not had any falls or muscle weakness on her right side. She is currently on Eliquis and denies missing any doses. [facility] Medical History Abnormal glucose Anemia Anxiety Arthritis Asthma BiPAP (biphasic positive airway pressure) dependence Cardiac murmur Cardiology follow-up encounter Celiac disease Chest pain Chronic kidney disease COPD (chronic obstructive pulmonary disease) Depression Diabetes mellitus Dietary restriction Difficulty swallowing Dyspnea on exertion Fall GERD (gastroesophageal reflux disease) Gout History of chronic back pain History of echocardiogram History of edema History of pain when walking History of stress test Hydronephrosis Hyperlipidemia Hypersomnia Hypertension Hypothyroidism Injury of head and neck Iron deficiency anemia Leg cramps Microcytic anemia Migraine headache Morbid obesity with BMI of 40.0-44.9, adult Non-smoker Noncompliance DAVY treated with BiPAP Post-menopausal Pulmonary embolism Restless leg syndrome Scalp hematoma Shortness of breath on exertion Syncope Thyroid disease UTI (urinary tract infection) Vitamin B12 deficiency Vitamin D deficiency Wears glasses Home Medications citalopram 40 mg tablet 40 mg PO DAILY DEPRESSION/ANXIETY 07/27/19 [History Last Taken 02/10/23] budesonide-formoterol HFA 160 mcg-4.5 mcg/actuation aerosol inhaler (Symbicort) 2 puff inhalation BID COPD 04/02/20 [History Last Taken 02/10/23] rimegepant 75 mg disintegrating tablet (Nurtec ODT) 75 mg PO ONCE PRN MIGRAINES 06/19/20 [History Last Taken 05/04/22] fluticasone fur. 100 mcg-umeclid 62.5 mcg-vilant 25 mcg inhalat.powder (Trelegy Ellipta) 1 ea inhalation DAILY COPD 08/14/20 [History Last Taken 02/10/23] galcanezumab-gnlm 120 mg/mL subcutaneous pen injector (Emgality Pen) 120 mg subcut QMONTH MIGRAINES 08/19/21 [History Last Taken 01/06/23] lorazepam 1 mg tablet 1 mg PO BID PRN ANXIETY 05/04/22 [History Last Taken 02/08/23] progesterone micronized 200 mg capsule 400 mg PO QHS HORMONES 10/11/22 [History Last Taken 02/09/23] tramadol 50 mg tablet 50 mg PO TID PAIN 10/11/22 [History Last Taken 02/10/23] amlodipine 10 mg tablet 10 mg PO DAILY BLOOD PRESSURE #90 tabs 10/28/22 [Rx Last Taken 02/10/23] valsartan 320 mg tablet 160 mg (1/2 x 320 mg) PO BID BLOOD PRESSURE #90 tabs 10/28/22 [Rx Last Taken 02/10/23] albuterol sulfate 90 mcg/actuation breath activated powder inhaler (ProAir RespiClick) 2 inh inhalation 4X/DAY PRN SHORTNESS OF BREATH #1 ea 11/07/22 [Rx Last Taken Unknown] metoclopramide HCl 10 mg tablet (Reglan) 10 mg PO Q6H PRN NAUSEA AND VOMTING #20 tabs 01/07/23 [Rx Last Taken Unknown] atorvastatin 80 mg tablet 80 mg PO DAILY CHOLESTEROL 02/10/23 [History Last Taken 02/10/23] cyclobenzaprine 5 mg tablet 5 mg PO Q8H PRN MUSCLE SPASMS 02/10/23 [History Last Taken 02/08/23] levothyroxine 175 mcg tablet 175 mcg PO DAILY THYROID 02/10/23 [History Last Taken 02/10/23] magnesium oxide 400 mg (241.3 mg magnesium) tablet 400 mg PO DAILY SUPPLEMENT 02/10/23 [History Last Taken 02/09/23] promethazine 25 mg rectal suppository (Promethegan) 25 mg IA Q6H PRN PRN Nausea #12 ea 02/24/23 [Rx Last Taken Unknown] gabapentin 100 mg capsule 400 mg PO QHS LEG CRAMPS 03/01/23 [History Last Taken Unknown] apixaban 5 mg (74 tabs) tablets in a dose pack (Eliquis DVT-PE Treat 30D Start) 5 mg PO BID #74 tabs 03/27/23 [Rx Last Taken Unknown] potassium chloride 10 mEq capsule,extended release 10 meq PO DAILY SUPPLEMENT #90 caps 05/02/23 [Rx Last Taken Unknown] Allergy/AdvReac Type Severity Reaction Status Date / Time hydrochlorothiazide AdvReac Intermediate Contributes Verified 05/01/23 19:48 to gout naproxen [From Naprosyn] AdvReac Intermediate Nausea Verified 05/01/23 19:48 aspirin AdvReac Nausea Verified 05/01/23 19:48 Family History Father , Age 72 Hypertension Mother CAD (coronary artery disease) Myocardial infarction, Onset Age: 55 Hypertension Sister CAD (coronary artery disease) Brother Cancer Surgical History History of History of cardiac catheterization History of carpal tunnel surgery of left wrist History of carpal tunnel surgery of right wrist History of left heart catheterization (11/11/20) history of uterine ablation Hx of cystoscopy Social History household members: none housing: apartment Smoking Status: Never smoker alcohol intake: never substance use type: does not use caffeine: No ROS ROS ED Constitutional Constitutional ED: Denies chills or fever(s) Eyes Eyes: Denies change in vision or discharge from eye(s) ENT ENT ED: Reports other Details: Throat tightness ; Denies discharge from eye(s) or rhinorrhea Cardiovascular Cardiovascular: Denies chest pain or palpitations Respiratory/Chest Respiratory/Chest: Reports dyspnea; Denies cough Gastrointestinal Gastrointestinal: Denies abdominal pain, diarrhea, nausea or vomiting Genitourinary Genitourinary ED: Denies dysuria Musculoskeletal Musculoskeletal: Denies back pain or extremity pain Integumentary Denies Abrasions or rash Neurologic Neurologic: Reports paresthesias RUE and RLE; Denies headache(s) or weakness Psychiatric Psychiatric: Denies anxiety or depression Allergic/Immunologic Allergic/Immunologic ED: Denies lip swelling or urticaria EXAM Physical Exam Const Vital Signs: 05/22/23 03:00 05/22/23 04:18 05/22/23 05:04 Temperature 97.3 F L Temperature Source Temporal Pulse Rate 68 86 Respiratory Rate 16 20 H Respiratory Effort Normal Non-Labored Short of Breath Respiratory Depth Normal Respiratory Pattern Normal Blood Pressure 167/88 H 146/82 H Blood Pressure Mean 114 103 Pulse Ox 97 97 Oxygen Delivery Method Room Air Room Air Room Air 05/22/23 05:08 05/22/23 06:40 Temperature Temperature Source Pulse Rate 75 79 Respiratory Rate 16 19 H Respiratory Effort Respiratory Depth Respiratory Pattern Normal Blood Pressure 127/94 H Blood Pressure Mean 105 Pulse Ox 98 Oxygen Delivery Method Room Air Positive obese Nutritional Appearance: obese HEENT Reports moist mucous membranes Eyes EOMs intact bilaterally Chest Wall inspection of chest normal and palpation of chest normal Resp normal respiratory effort and clear to auscultation bilaterally Cardio regular rate and regular rhythm GI non-tender Palpation: soft Extremity normal to inspection Neuro oriented x3 Neuro Narrative: Patient reports decree sensation to light touch on the right side of face, right upper extremity, and right lower extremity. She has no muscle weakness noted to these areas. Strong distal pulses noted throughout. 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 EKG obtained to evaluate for cardiac arrhythmia/ischemia. IV line established. Labwork obtained to evaluate for leukocytosis, anemia, and electrolyte derangement. CT scan of the head will be obtained to evaluate for any evidence of stroke, bleed, edema. CT of the neck will be obtained to ensure no evidence of throat edema or airway narrowing. Chest x-ray obtained to evaluate for acute lung pathology, cardiac size, or mediastinal abnormality. History & Record Review Discussion w/independent historian: Patient Lab Data Attestation: I reviewed the patient's lab results. Labs: Laboratory Results - last 24 hr 05/22/23 05/22/23 04:00 06:20 WBC 10.1 RBC 3.61 L Hgb 10.6 L Hct 33.3 L MCV 92.2 MCH 29.4 MCHC 31.8 L RDW Std Deviation 59.0 H RDW Coeff of Alfredo 17.7 H Plt Count 427 MPV 9.8 Immature Gran % (Auto) 0.500 Neut % (Auto) 65.5 Lymph % (Auto) 20.4 Kemper % (Auto) 7.7 Eos % (Auto) 5.2 H Baso % (Auto) 0.7 Absolute Neuts (auto) 6.6 Absolute Lymphs (auto) 2.06 Nucleated RBC % 0 Sodium 140 Potassium 3.5 Chloride 107 Carbon Dioxide 25.0 Anion Gap 8 BUN 11 Creatinine 1.12 H Estim Creat Clear Calc 81.57 Est GFR (MDRD) Af Amer 66 Est GFR (MDRD) Non-Af 54 L BUN/Creatinine Ratio 9.8 L Glucose 133 H Calcium 9.2 Troponin I High Sens 10 11 Radiography Diagnostic Testing: Clinical Impression(s) from Imaging Studies Brain CT 05/22/23 03:20 IMPRESSION: No CT evidence of acute intracranial hemorrhage or injury. Minimal senescent changes compatible with age. Electronically Signed: Ryland Dasilva MD at 4:51 EDT , Soft Tissue Neck CT 05/22/23 03:20 IMPRESSION: No evidence of superficial soft tissue or pharyngeal abscess or focal inflammatory change. Minimal ethmoid sinus mucoperiosteal thickening Electronically Signed: Ryland Dasilva MD at 5:58 EDT , Chest X-Ray 05/22/23 04:08 IMPRESSION: No radiographic evidence of acute cardiopulmonary disease. Electronically Signed: Ryland Dasilva MD at 4:53 EDT , Treatment and Re-Evaluation :: CBC was a white count 10.1 with a hemoglobin of 10.6. Normal differential. Chemistry studies unremarkable. Glucose is 133. Initial troponin is 10 with a repeat troponin of 11. Chest x-ray per my interpretation was chronic changes with no focal infiltrate. Radiology interpretation reviewed and agrees. CT scan of the head reveals no acute intracranial hemorrhage or injury. Minimal senescent changes compatible with age noted. CT of the neck reveals no evidence of soft tissue or pharyngeal abscess or focal inflammatory change. EKG is sinus rhythm at 78 bpm with nonspecific T wave flattening/mild inversion in the lateral precordial leads. This is unchanged compared to prior study from 6 weeks ago. At this time I did recommend patient follow-up with her primary care physician. I do not believe she has evidence of an acute stroke and does not need admission for further workup. Return instructions were provided. Discharge Plan Triage Chief Complaint: Shortness of Breath Other Complaint: Numb/Ting ED Provider: Nannette Stahl Dx/Rx/DC Orders Clinical Impression: Paresthesias, Dyspnea Instructions: ED Dyspnea, ED Paraesthesias Prescriptions: No Action budesonide-formoterol [Symbicort] 160-4.5 mcg/actuation HFA aerosol inhaler 2 puff INHALATION BID Nurtec ODT 75 mg tablet,disintegrating 75 mg PO ONCE PRN (Reason: MIGRAINES ) Emgality Pen 120 mg/mL pen injector 120 mg subcut QMONTH Patient Comments: PT STATES THEY WERE DUE TO GET THIS A WEEK AGO BUT CANNOT AFFORD TO DO SO AT THIS TIME 9AS OF 02-10-23) Trelegy Ellipta 100-62.5-25 mcg blister with device 1 ea INHALATION DAILY lorazepam 1 mg tablet 1 mg PO BID PRN (Reason: ANXIETY ) tramadol 50 mg tablet 50 mg PO TID progesterone micronized 200 mg capsule 400 mg PO QHS ProAir RespiClick 90 mcg/actuation aerosol powdr breath activated 2 inh INHALATION 4X/DAY PRN (Reason: SHORTNESS OF BREATH ) Qty: 1 0RF cyclobenzaprine 5 mg tablet 5 mg PO Q8H PRN (Reason: MUSCLE SPASMS ) magnesium oxide 400 mg (241.3 mg magnesium) tablet 400 mg PO DAILY levothyroxine 175 mcg tablet 175 mcg PO DAILY atorvastatin 80 mg Tablet 80 mg PO DAILY gabapentin 100 mg capsule 400 mg PO QHS metoclopramide HCl [Reglan] 10 mg tablet 10 mg PO Q6H PRN (Reason: NAUSEA AND VOMTING ) Qty: 20 0RF promethazine [Promethegan] 25 mg suppository 25 mg IA Q6H PRN PRN (Reason: Nausea) Qty: 12 0RF Eliquis DVT-PE Treat 30D Start 5 mg (74 tabs) tablets,dose pack 5 mg PO BID Qty: 74 0RF Rx Instructions: Starter pack of Eliquis for Pulmonary Emboli citalopram 40 mg tablet 40 mg PO DAILY amlodipine 10 mg tablet 10 mg PO DAILY Qty: 90 3RF valsartan 320 mg tablet 160 mg PO BID Qty: 90 3RF potassium chloride 10 mEq capsule, extended release 10 meq PO DAILY Qty: 90 3RF Primary Care Provider: Halina Johnson Referrals: Halina Johnson, [Primary Care Provider] - 5-7 Days Disposition Disposition: Home, Self Care
[2023-05-22] MEDS: 0.9% Normal Saline (1000mL) 1,000 ML 150 ML IV (03:59)
--- NOTE | 2023-05-22 04:08 | RAD_ITS ---
INDICATION: sob EXAMINATION/TECHNIQUE: X-RAY - XR Chest 1 View COMPARISON: May 16, 2023. FINDINGS: LINES/DEVICES: None. LUNGS: No consolidation, edema or effusion. No pneumothorax. MEDIASTINUM AND CARDIOVASCULAR STRUCTURES: Unchanged cardiomediastinal silhouette accentuated by projection.. BONES AND SOFT TISSUES: Unremarkable. RAD/Chest 1 View (Portable) IMPRESSION: No radiographic evidence of acute cardiopulmonary disease. Electronically Signed: Ryland Dasilva MD at 4:53 EDT ,
[2023-05-22 04:13] LABS: Absolute Lymphocyte Count 2.06 X10^3/uL (0.83-4.51); Absolute Neutrophil Count 6.6 X10^3/uL (2.0-7.7); Basophil# 0.07 X10^3/uL; Basophil% 0.7 % (0-1); Eosinophil# 0.53 X10^3/uL; Eosinophils% 5.2 % (0-5); Hematocrit 33.3 % (37-47); Hemoglobin 10.6 g/dL (12.0-15.0); Lymphocyte # 2.06 X10^3/ul (0.83-4.51); Lymphocyte % 20.4 % (19-41); Mean Corp Hgb Conc 31.8 g/dL (32-36); Mean Corpuscular Hgb 29.4 pg (27.0-32.0); Mean Corpuscular Volume 92.2 fL (81-99); Mean Platelet Vol. 9.8 fl (6.2-12.0); Monocyte# 0.78 X10^3/uL; Monocyte% 7.7 % (0-10); NRBC Flagged by Analyzer 0 % (0-5); Neutrophil # 6.61 X10^3/uL (2.7-7.7); Neutrophil % 65.5 % (47-70); Platelet Count 427 K/mm3 (150-450); RBC Distribution Width CV 17.7 % (11.6-14.6); Red Blood Count 3.61 M/mm3 (4.2-5.4); White Blood Count 10.1 K/mm3 (4.4-11.0)
[2023-05-22 04:18] VITALS: O2SAT 100
[2023-05-22 04:32] LABS: Anion Gap 8 (5-15); BUN 11 mg/dL (7-18); BUN/Creat Ratio 9.8 RATIO (10-20); Calcium,Total 9.2 mg/dL (8.5-10.1); Chloride 107 mmol/L (98-107); Creatinine, Serum 1.12 mg/dL (0.55-1.02); EST Glomerular Filtration Rate 54 mL/min (>60); Est Glom Filt Rate - Afr Amer 66 mL/min (>60); Estimated Creatinine Clearance 81.57 ml/min; Glucose 133 mg/dL (74-106); Potassium 3.5 mmol/L (3.5-5.1); Sodium Level 140 mmol/L (136-145); Troponin-I HS 10 pg/mL (3.0-54.0)
[2023-05-22 05:04] VITALS: BP 146/82; PULSE 86; RESP 20; O2SAT 97
[2023-05-22 05:08] VITALS: PULSE 75; RESP 16
[2023-05-22] MEDS: Ipratropium/Albuterol Sulfate 3 ML AMPUL.NEB INHALATION (05:08)
[2023-05-22 06:40] VITALS: BP 127/94; PULSE 79; RESP 19; O2SAT 98
[2023-05-22 06:52] LABS: Troponin-I HS 11 pg/mL (3.0-54.0)
[2023-05-22 07:05] VITALS: BP 169/100; PULSE 79; RESP 18; TEMP 36.8; O2SAT 99
== END 2023-05-22 07:09 | disposition home or self-care (01) ==
PROVIDERS: Emergency Provider Emergency Medicine; PCP Family Medicine; Visit Provider Emergency Medicine
DX: R20.2 Paresthesia of skin (principal); J44.9 Chronic obstructive pulmonary disease, unspecified; R06.00 Dyspnea, unspecified; N18.9 Chronic kidney disease, unspecified; G47.33 Obstructive sleep apnea (adult) (pediatric); E66.9 Obesity, unspecified; Z86.711 Personal history of pulmonary embolism; Z79.01 Long term (current) use of anticoagulants
CPT/HCPCS: 70450; 70490; 71045; 80048; 84484; 85025; 93005; 94640; 96360; 96361; 99285; J7030; A4216

== ENCOUNTER → 2023-07-05 | Outpatient (CLI) | payer MEDICARE, MEDICAID, SELFPAY ==
[2023-07-05 17:21] LABS: Amphetamine Urine VISTA NEGATIVE (<1000 ng/mL); Barbiturate Urine VISTA NEGATIVE (< 200 ng/mL); Benzodiazepine Urine VISTA NEGATIVE (< 200 ng/mL); Cocaine Urine VISTA NEGATIVE (< 300 ng/mL); Ecstacy Urine VISTA NEGATIVE (< 500 ng/mL); Methadone Urine VISTA NEGATIVE (< 300 ng/mL); PCP Urine VISTA NEGATIVE (< 25 ng/mL); THC Urine VISTA NEGATIVE (< 50 ng/mL); Vista UDS pH Range 6
[2023-07-05 18:58] LABS: Free T3 0.6 pg/mL (2.18-3.98)
== END | disposition home or self-care (01) ==
PROVIDERS: PCP Family Medicine; Referring Provider Anesthesiology Pain Medicine; Visit Provider Anesthesiology Pain Medicine
DX: F11.20 Opioid dependence, uncomplicated (principal); E03.9 Hypothyroidism, unspecified
CPT/HCPCS: 36415; 80307; 84439; 84443; 84481

== ENCOUNTER → 2023-07-19 | Outpatient (CLI) | payer MEDICARE, MEDICAID, SELFPAY ==
--- NOTE | 2023-07-19 14:12 | US_ITS ---
INDICATION: HYPOTHYROIDSIM EXAMINATION: Ultrasound US Thyroid (eg thyroid, parathyroid, parotid) TECHNIQUE: Roe scale and color doppler imaging was performed of the thyroid gland. COMPARISON: No pertinent previous for comparison.. FINDINGS: RIGHT THYROID LOBE: 4.8 x 1.5 x 1.6 cm. Diffusely heterogeneous echotexture is noted without evidence of focal masses or abnormal blood flow. [No thyroid nodules are present. LEFT THYROID LOBE: 2.9 x 0.8 x 1.3 cm.. Diffusely heterogeneous echotexture is noted without focal masses or abnormal blood flow. [No thyroid nodules are present. ISTHMUS: 3 mm. No thyroid nodules are present. US/Thyroid IMPRESSION: 1. Extensive diffuse heterogeneous echotexture bilaterally however no focal masses or abnormal blood flow. No thyroid nodules identified. Electronically Signed: Casey Hodge MD at 22:49 EDT ,
== END | disposition home or self-care (01) ==
LOC: US 14:09
PROVIDERS: PCP Family Medicine; Referring Provider Family Medicine; Visit Provider Family Medicine
DX: E03.9 Hypothyroidism, unspecified (principal)
CPT/HCPCS: 76536

== ENCOUNTER 2023-07-25 11:25 | Emergency (ER) | payer MEDICARE, MEDICAID, SELFPAY ==
[2023-07-25 11:26] VITALS: BP 154/88; PULSE 81; RESP 19; TEMP 36.2; O2SAT 97
--- NOTE | 2023-07-25 11:43 | RAD_ITS ---
INDICATION: dyspnea EXAMINATION/TECHNIQUE: X-RAY - XR Chest 2 Views COMPARISON: Prior study dated: 05/22/2023 FINDINGS: LINES/DEVICES: None. LUNGS: Mild elevation of the right hemidiaphragm. No focal infiltrate is seen. No evidence of pleural effusions. MEDIASTINUM AND CARDIOVASCULAR STRUCTURES: Borderline cardiac silhouette. BONES AND SOFT TISSUES: Unremarkable. RAD/Chest PA and Lateral IMPRESSION: No radiographic evidence of acute cardiopulmonary disease. Electronically Signed: Fredrick Sharpe MD at 12:23 EDT ,
--- NOTE | 2023-07-25 11:44 | ED.VIS.DYS ---
HPI History of Present Illness Chief Complaint: Shortness of Breath Informant: patient Narrative Narrative: 52-year-old female presenting with 1 week history of dyspnea and fatigue. Patient denies any fever or cough. No significant rhinorrhea or congestion sore throat earache headache myalgias. She denies urinary symptoms vomiting or diarrhea. She denies chest pain. She states that she is on Eliquis for pulmonary embolism and has not missed any dosing. Patient wears BiPAP for DAVY. Nothing in particular is a different about it today as there was few days ago. She went to urgent care and they advised her to come to emergency. Patient does not wear oxygen at home. [facility] Medical History Fall Cardiology follow-up encounter Scalp hematoma Pulmonary embolism Post-menopausal Thyroid disease Injury of head and neck Dietary restriction Difficulty swallowing BiPAP (biphasic positive airway pressure) dependence COPD (chronic obstructive pulmonary disease) Shortness of breath on exertion Leg cramps History of pain when walking History of edema History of echocardiogram History of stress test Syncope Abnormal glucose Noncompliance DAVY treated with BiPAP UTI (urinary tract infection) Vitamin D deficiency Restless leg syndrome Vitamin B12 deficiency Iron deficiency anemia History of chronic back pain Wears glasses Arthritis Non-smoker Hydronephrosis Depression Anemia Migraine headache Chronic kidney disease Diabetes mellitus Gout Celiac disease Hyperlipidemia GERD (gastroesophageal reflux disease) Dyspnea on exertion Chest pain Hypersomnia Cardiac murmur Microcytic anemia Hypertension Morbid obesity with BMI of 40.0-44.9, adult Asthma Hypothyroidism Anxiety Home Medications ?Medication ?Instructions ?Recorded ?Last Taken ?Type citalopram 40 mg tablet 40 mg PO DAILY DEPRESSION/ANXIETY 07/27/19 02/10/23 History budesonide-formoterol HFA 160 2 puff inhalation BID COPD 04/02/20 02/10/23 History mcg-4.5 mcg/actuation aerosol inhaler (Symbicort) rimegepant 75 mg disintegrating 75 mg PO ONCE PRN MIGRAINES 06/19/20 05/04/22 History tablet (Nurtec ODT) galcanezumab-gnlm 120 mg/mL 120 mg subcut QMONTH MIGRAINES 08/19/21 01/06/23 History subcutaneous pen injector (Emgality Pen) lorazepam 1 mg tablet 1 mg PO BID PRN ANXIETY 05/04/22 02/08/23 History progesterone micronized 200 mg 400 mg PO QHS HORMONES 10/11/22 02/09/23 History capsule tramadol 50 mg tablet 50 mg PO TID PAIN 10/11/22 02/10/23 History amlodipine 10 mg tablet 10 mg PO DAILY BLOOD PRESSURE #90 10/28/22 02/10/23 Rx tabs valsartan 320 mg tablet 160 mg (1/2 x 320 mg) PO BID BLOOD 10/28/22 02/10/23 Rx PRESSURE #90 tabs albuterol sulfate 90 mcg/actuation 2 inh inhalation 4X/DAY PRN 11/07/22 Unknown Rx breath activated powder inhaler SHORTNESS OF BREATH #1 ea (ProAir RespiClick) metoclopramide HCl 10 mg tablet 10 mg PO Q6H PRN NAUSEA AND 01/07/23 Unknown Rx (Reglan) VOMTING #20 tabs atorvastatin 80 mg tablet 80 mg PO DAILY CHOLESTEROL 02/10/23 02/10/23 History cyclobenzaprine 5 mg tablet 5 mg PO Q8H PRN MUSCLE SPASMS 02/10/23 02/08/23 History levothyroxine 175 mcg tablet 175 mcg PO DAILY THYROID 02/10/23 02/10/23 History magnesium oxide 400 mg (241.3 mg 400 mg PO DAILY SUPPLEMENT 02/10/23 02/09/23 History magnesium) tablet promethazine 25 mg rectal 25 mg HI Q6H PRN PRN Nausea #12 ea 02/24/23 Unknown Rx suppository (Promethegan) gabapentin 100 mg capsule 400 mg PO QHS LEG CRAMPS 03/01/23 Unknown History apixaban 5 mg (74 tabs) tablets in 5 mg PO BID #74 tabs 03/27/23 Unknown Rx a dose pack (Eliquis DVT-PE Treat 30D Start) potassium chloride 10 mEq 10 meq PO DAILY SUPPLEMENT #90 05/02/23 Unknown Rx capsule,extended release caps fluticasone fur. 100 mcg-umeclid 1 inh inhalation DAILY COPD 06/20/23 Unknown History 62.5 mcg-vilant 25 mcg inhalat.powder (Trelegy Ellipta) Allergy/AdvReac Type Severity Reaction Status Date / Time hydrochlorothiazide AdvReac Intermediate Contributes Verified 06/20/23 14:32 to gout naproxen (From Naprosyn) AdvReac Intermediate Nausea Verified 06/20/23 14:32 aspirin AdvReac Nausea Verified 06/20/23 14:32 Family History Father , Age 72 Hypertension Mother CAD (coronary artery disease) Myocardial infarction, Onset Age: 55 Hypertension Sister CAD (coronary artery disease) Brother Cancer Surgical History History of cardiac catheterization History of History of carpal tunnel surgery of right wrist History of carpal tunnel surgery of left wrist Hx of cystoscopy History of left heart catheterization (11/11/20) history of uterine ablation Social History household members: none housing: apartment Smoking Status: Never smoker alcohol intake: never substance use type: does not use caffeine: No ROS ROS ED ROS Narrative Generalized fatigue Constitutional Constitutional ED: Denies chills, fever(s) or weight loss Eyes Eyes: Denies change in vision or diplopia ENT ENT ED: Denies ear pain, rhinorrhea or sore throat Cardiovascular Cardiovascular: Denies chest pain, orthopnea, palpitations or racing heartbeat Respiratory/Chest Respiratory/Chest: Reports dyspnea; Denies cough or orthopnea Gastrointestinal Gastrointestinal: Denies abdominal pain, diarrhea, nausea or vomiting Genitourinary Genitourinary ED: Denies dysuria, hematuria or urinary frequency Musculoskeletal Musculoskeletal: Denies arthralgias or myalgias Integumentary Denies abscess or rash Neurologic Neurologic: Denies headache(s) or weakness Psychiatric Psychiatric: Denies anxiety, depression, suicidal ideation or suicidal thoughts Endocrine Endocrinology: Denies polydipsia, polyphagia or polyuria Allergic/Immunologic Allergic/Immunologic ED: Denies mouth swelling, tongue swelling or urticaria EXAM Physical Exam Narrative Exam Narrative: Patient is lying on her left side. She appears in no acute distress. She speaks in full sentences. I do not see accessory muscle use or tachypnea. Const Vital Signs: 07/25/23 11:26 07/25/23 11:35 Temperature 97.2 F L Temperature Source Temporal Pulse Rate 81 Respiratory Rate 19 H Respiratory Effort Normal Non-Labored Respiratory Depth Normal Respiratory Pattern Normal Blood Pressure 154/88 H Blood Pressure Mean 110 Pulse Ox 97 Oxygen Delivery Method Room Air Room Air Positive well nourished, well developed and obese General Appearance ED: well developed Nutritional Appearance: obese HEENT Reports normocephalic, head/scalp atraumatic and moist mucous membranes Eyes PERRL and EOMs intact bilaterally Neck no lymphadenopathy, supple and no JVD Resp normal respiratory effort and clear to auscultation bilaterally Cardio regular rate, regular rhythm and no murmurs GI normal to inspection, nondistended, normoactive bowel sounds and non-tender Palpation: soft Back/Spine no CVA tenderness and normal ROM Extremity normal to inspection General Extremety ED: Negative for edema General Extremity: Negative for edema Neuro oriented x3 and CN's II-XII intact bilaterally Sensorium / Orientation: alert Motor Exam: strength 5/5 throughout Psych mental status grossly normal Mood & Affect: Negative for depressed or tearful Skin no rashes or lesions noted and no wounds MDM MDM MDM Narrative Medical decision making narrative: DDX includess but not limited to CHF, PE, COPD, Viral syndrome, pleural effusion, upper airway obstruction, deconditioning, acs, dehydration, thyroid disorders/metabolic dysfunction, critical anemia requiring transfusion, dysrythmias. Clinically, the patient has no hypoxia or objective dyspnea. Lungs are clear. No peripheral edema. No chest pain. My independant interpretation of the chest XRay is No acute process. Hgb is 11.8 WBC 9.8 [place] 429. BUN 8 Cr. 1.28 AG 7 CO2 27. Glucos 113. Pt will be discharged home with supportive care and follow up with pcp if not improving. return if new or worsening symptoms. History & Record Review Discussion w/independent historian: Patient Lab Data Attestation: I reviewed the patient's lab results. Labs: Laboratory Results - last 24 hr 07/25/23 12:59 WBC 9.8 RBC 4.38 Hgb 11.8 L Hct 38.6 MCV 88.1 MCH 26.9 L MCHC 30.6 L RDW Std Deviation 58.0 H RDW Coeff of Alfredo 18.0 H Plt Count 429 MPV 9.9 Immature Gran % (Auto) 0.700 Neut % (Auto) 65.0 Lymph % (Auto) 20.9 Adams % (Auto) 6.1 Eos % (Auto) 6.2 H Baso % (Auto) 1.1 H Absolute Neuts (auto) 6.4 Absolute Lymphs (auto) 2.04 Nucleated RBC % 0 Sodium 138 Potassium 3.6 Chloride 104 Carbon Dioxide 27.0 Anion Gap 7 BUN 8 Creatinine 1.28 H Est GFR (MDRD) Af Amer 56 L Est GFR (MDRD) Non-Af 46 L BUN/Creatinine Ratio 6.2 L Glucose 113 H Calcium 9.3 Radiography Diagnostic Testing: Clinical Impression(s) from Imaging Studies Chest X-Ray 07/25/23 11:43 IMPRESSION: No radiographic evidence of acute cardiopulmonary disease. Electronically Signed: Fredrick Sharpe MD at 12:23 EDT , Discharge Plan Triage Chief Complaint: Shortness of Breath ED Provider: Nicolás Nieves Dx/Rx/DC Orders Clinical Impression: Shortness of breath, Fatigue Instructions: ED Dyspnea Prescriptions: No Action budesonide-formoterol [Symbicort] 160-4.5 mcg/actuation HFA aerosol inhaler 2 puff INHALATION BID Nurtec ODT 75 mg tablet,disintegrating 75 mg PO ONCE PRN (Reason: MIGRAINES ) Emgality Pen 120 mg/mL pen injector 120 mg subcut QMONTH Patient Comments: PT STATES THEY WERE DUE TO GET THIS A WEEK AGO BUT CANNOT AFFORD TO DO SO AT THIS TIME 9AS OF 02-10-23) Trelegy Ellipta 100-62.5-25 mcg blister with device 1 inh INHALATION DAILY lorazepam 1 mg tablet 1 mg PO BID PRN (Reason: ANXIETY ) tramadol 50 mg tablet 50 mg PO TID progesterone micronized 200 mg capsule 400 mg PO QHS ProAir RespiClick 90 mcg/actuation aerosol powdr breath activated 2 inh INHALATION 4X/DAY PRN (Reason: SHORTNESS OF BREATH ) Qty: 1 0RF cyclobenzaprine 5 mg tablet 5 mg PO Q8H PRN (Reason: MUSCLE SPASMS ) magnesium oxide 400 mg (241.3 mg magnesium) tablet 400 mg PO DAILY levothyroxine 175 mcg tablet 175 mcg PO DAILY atorvastatin 80 mg Tablet 80 mg PO DAILY gabapentin 100 mg capsule 400 mg PO QHS metoclopramide HCl [Reglan] 10 mg tablet 10 mg PO Q6H PRN (Reason: NAUSEA AND VOMTING ) Qty: 20 0RF promethazine [Promethegan] 25 mg suppository 25 mg HI Q6H PRN PRN (Reason: Nausea) Qty: 12 0RF Eliquis DVT-PE Treat 30D Start 5 mg (74 tabs) tablets,dose pack 5 mg PO BID Qty: 74 0RF Rx Instructions: Starter pack of Eliquis for Pulmonary Emboli citalopram 40 mg tablet 40 mg PO DAILY amlodipine 10 mg tablet 10 mg PO DAILY Qty: 90 3RF valsartan 320 mg tablet 160 mg PO BID Qty: 90 3RF potassium chloride 10 mEq capsule, extended release 10 meq PO DAILY Qty: 90 3RF Primary Care Provider: Nasreen Sutton Referrals: Nasreen Sutton MD [Primary Care Provider] - 1-2 Days if not improving Print Language: Kyrgyz Disposition Disposition: Home, Self Care
[2023-07-25 13:10] LABS: Absolute Lymphocyte Count 2.04 X10^3/uL (0.83-4.51); Absolute Neutrophil Count 6.4 X10^3/uL (2.0-7.7); Basophil# 0.11 X10^3/uL; Basophil% 1.1 % (0-1); Eosinophil# 0.61 X10^3/uL; Eosinophils% 6.2 % (0-5); Hematocrit 38.6 % (37-47); Hemoglobin 11.8 g/dL (12.0-15.0); Lymphocyte # 2.04 X10^3/ul (0.83-4.51); Lymphocyte % 20.9 % (19-41); Mean Corp Hgb Conc 30.6 g/dL (32-36); Mean Corpuscular Hgb 26.9 pg (27.0-32.0); Mean Corpuscular Volume 88.1 fL (81-99); Mean Platelet Vol. 9.9 fl (6.2-12.0); Monocyte% 6.1 % (0-10); NRBC Flagged by Analyzer 0 % (0-5); Neutrophil # 6.35 X10^3/uL (2.7-7.7); Platelet Count 429 K/mm3 (150-450); Red Blood Count 4.38 M/mm3 (4.2-5.4); White Blood Count 9.8 K/mm3 (4.4-11.0)
[2023-07-25 13:23] LABS: Anion Gap 7 (5-15); BUN 8 mg/dL (7-18); BUN/Creat Ratio 6.2 RATIO (10-20); Calcium,Total 9.3 mg/dL (8.5-10.1); Chloride 104 mmol/L (98-107); Creatinine, Serum 1.28 mg/dL (0.55-1.02); EST Glomerular Filtration Rate 46 mL/min (>60); Est Glom Filt Rate - Afr Amer 56 mL/min (>60); Glucose 113 mg/dL (74-106); Potassium 3.6 mmol/L (3.5-5.1); Sodium Level 138 mmol/L (136-145)
== END 2023-07-25 14:07 | disposition home or self-care (01) ==
PROVIDERS: Emergency Provider Emergency Medicine; PCP Family Medicine; Visit Provider Emergency Medicine
DX: R06.02 Shortness of breath (principal); J44.9 Chronic obstructive pulmonary disease, unspecified; R53.83 Other fatigue; I10 Essential (primary) hypertension; E78.5 Hyperlipidemia, unspecified; Z79.01 Long term (current) use of anticoagulants; Z79.899 Other long term (current) drug therapy; Z86.711 Personal history of pulmonary embolism
CPT/HCPCS: 71046; 80048; 85025; 99282; A4216

== ENCOUNTER 2023-07-28 06:27 | Day surgery (SDC) | payer MEDICARE, MEDICAID, SELFPAY ==
[2023-07-28 06:56] VITALS: BP 142/110; PULSE 91; RESP 16; TEMP 36.1; O2SAT 100; BMI 51.5
[2023-07-28] MEDS: Cephalexin 500 MG Capsule 1000 MG PO (07:31)
[2023-07-28] MEDS: LORazepam 1 MG Tablet PO (07:32)
[2023-07-28] MEDS: Bupivacaine 0.25% 30 ML Vial (07:40)
[2023-07-28] MEDS: Lidocaine 1% /Epi 1:100 (20ml) 20 ML Vial (07:40)
[2023-07-28 07:41] VITALS: BP 128/85; BP 137/92; O2SAT 95; O2SAT 96
[2023-07-28 07:50] VITALS: BP 112/74; BP 89/57; O2SAT 95; O2SAT 96
[2023-07-28 08:22] VITALS: BP 109/73; PULSE 75; RESP 16; TEMP 36.3; O2SAT 92
--- NOTE | 2023-07-28 08:22 | OP.PCM_ITS ---
Report of Operation Date of Procedure: 07/28/23 Description of Surgical Findings:: Preoperative diagnosis: Recurrent right carpal tunnel syndrome Postoperative diagnosis: Recurrent right carpal tunnel syndrome Procedure: Revision right open carpal tunnel release Primary Surgeon: Mars Bennett DO Anesthesia: Local Complications: None apparent IV fluids: None Estimated blood loss: 3 cc Specimen: None Packing/drains: None Implants: None Urine output: None recorded Preoperative indications: This is a 52-year-old female seen in the outpatient setting for right hand pain and paresthesias. Patient had electrodiagnostic testing demonstrated severe carpal tunnel syndrome. She failed nighttime bra cing and oral anti-inflammatories. I recommend surgical intervention in the form of revision right open carpal tunnel release under local anesthesia. The risks, benefits, alternatives of procedure were reviewed with patient at length and she agreed to proceed. Risks included but were not limited to bleeding, infection, loss of life or limb, nonhealing wounds, worsening of carpal tunnel syndrome, persistent paresthesias, persistent pain, stiffness, neurovascular injury, DVT or PE. She expressed understanding of these risks and wished to proceed with surgery. Description of procedure: Patient was identified the preoperative holding area by name, medical record number, and date of . The operative extremity was marked. All questions were answered to patient satisfaction. Informed consent was confirmed with the patient. At time of the procedure, patient brought the operative suite and positioned supine on a standard operating table and hand table was attached to the patient' s operative side. Prior to prepping, a well-padded pneumatic tourniquet was applied to the operative forearm. This was not inflated throughout the case. I performed a tumescent field block with 10 cc total 1% lidocaine with epinephrine 1: 100,000 and 10 cc 0.25% plain bupivacaine. We then prepped and draped the operative upper extremity normal, sterile orthopedic fashion. We performed a timeout with all parties in attendance in agreement the side, site, operation be performed. No concerns voiced and we elected proceed with surgery. 1000 mg oral Keflex was administered prior to incision due to difficulty obtaining IV access. I first confirmed anesthesia with Adson forceps on the skin. A standard longitudinal was made in line with the fourth ray proximal to Roberto's cardinal line with Maia extension into the forearm approximately 2 cm. Full-thickness skin flaps were developed sharply down to level palmar fascia. Heiss retractor was placed. Palmar and antebrachial fascia was split in line with the incision. The median nerve was identified in the distal forearm. This was tracked distally into the carpal tunnel. Heiss retractor was taken deeper. Transverse carpal ligament was identified and split in line with the incision along its ulnar border. Proximal and distal releases were completed. Identification of perivascular fat was noted distally. No aberrancies in the median nerve were noted. Recurrent motor branch the median nerve was noted and dissected freely of adhesions. There was significant scar tissue formation noted within the carpal tunnel as well as tenosynovitis of the flexor tendons. Tenosynovectomy of the 9 flexor tendons was performed with Littler scissors. The wound was copiously irrigated with normal saline solution. Tourniquet was deflated. Hemostasis was achieved with bipolar cautery. Skin was reapproximated with interrupted simple mattress 4-0 nylon suture. A volar fiberglass splint and bulky dressing was applied. She tolerated procedure well without apparent complication. Patient was transferred back to same-day surgery in stable condition. Postoperative plan: Patient be discharged home today after meeting same-day s urgery criteria. Maintain splint until follow-up. Patient will be weightbearing less than 2 pounds to the operative hand. She will follow-up in 2 weeks for suture removal and wound check. Short prescription of [place] provided, encouraged to take [id number] analgesics primarily for pain. Ice and elevation encouraged.
== END 2023-07-28 08:52 | disposition home or self-care (01) ==
LOC: SDC 06:27 → AC 06:28
PROVIDERS: PCP Family Medicine; Referring Provider Student in an Organized Health Care Education/Training Program; Visit Provider Student in an Organized Health Care Education/Training Program
PROC: (CPT 64721; principal; 2023-07-28 07:15)
DX: G56.01 Carpal tunnel syndrome, right upper limb (principal); N18.4 Chronic kidney disease, stage 4 (severe); J44.9 Chronic obstructive pulmonary disease, unspecified; Z68.43 Body mass index [BMI] 50.0-59.9, adult; E11.22 Type 2 diabetes mellitus with diabetic chronic kidney disease; I12.9 Hypertensive chronic kidney disease with stage 1 through stage 4 chronic kidney disease, or unspecified chronic kidney disease; E78.00 Pure hypercholesterolemia, unspecified; E66.9 Obesity, unspecified; Z79.01 Long term (current) use of anticoagulants; Z79.51 Long term (current) use of inhaled steroids; I25.10 Atherosclerotic heart disease of native coronary artery without angina pectoris; K21.9 Gastro-esophageal reflux disease without esophagitis; Z86.718 Personal history of other venous thrombosis and embolism; M65.821 Other synovitis and tenosynovitis, right upper arm
CPT/HCPCS: 64721

== ENCOUNTER 2023-07-29 18:26 | Emergency (ER) | payer MEDICARE, MEDICAID, SELFPAY ==
[2023-07-29] VITALS (11 sets, daily range): BP systolic 113–159; BP diastolic 77–117; PULSE 77–85; RESP 16–25; TEMP 36.1; O2SAT 93–98; BMI 52.5
--- NOTE | 2023-07-29 18:39 | EDS_ITS ---
HPI History of Present Illness Chief Complaint: Weakness Narrative Narrative: 52-year-old female, multiple medical problems, presents with her mother because of generalized weakness and fatigue. Her mother relates history that she had surgery yesterday morning at 630 on her right hand. Patient states that she had carpal tunnel surgery performed. Mother states that they could not get an IV on her so they gave her multiple oral medications and perform the surgery. Since she got home, she has been very sleepy and tired. She slept all day yesterday, and for 9 hours today. Her mother was concerned because she could barely wake her up to eat. Mother presents to the emergency department because of extreme drowsiness and fatigue. [facility] Medical History Walker as ambulation aid Ambulates with cane Low iron History of renal disease High cholesterol DVT (deep venous thrombosis) PONV (postoperative nausea and vomiting) Stroke/cerebrovascular accident Sleep apnea Fall Cardiology follow-up encounter Scalp hematoma Pulmonary embolism Post-menopausal Thyroid disease Injury of head and neck Dietary restriction Difficulty swallowing BiPAP (biphasic positive airway pressure) dependence COPD (chronic obstructive pulmonary disease) Shortness of breath on exertion Leg cramps History of pain when walking History of edema History of echocardiogram History of stress test Syncope Abnormal glucose Noncompliance DAVY treated with BiPAP UTI (urinary tract infection) Vitamin D deficiency Restless leg syndrome Vitamin B12 deficiency Iron deficiency anemia History of chronic back pain Wears glasses Arthritis Non-smoker Hydronephrosis Depression Anemia Migraine headache Chronic kidney disease Diabetes mellitus Gout Celiac disease Hyperlipidemia GERD (gastroesophageal reflux disease) Dyspnea on exertion Chest pain Hypersomnia Cardiac murmur Microcytic anemia Hypertension Morbid obesity with BMI of 40.0-44.9, adult Asthma Hypothyroidism Anxiety Home Medications ?Medication ?Instructions ?Recorded ?Last Taken ?Type citalopram 40 mg tablet 40 mg PO DAILY DEPRESSION/ANXIETY 07/27/19 07/27/23 History budesonide-formoterol HFA 160 2 puff inhalation BID COPD 04/02/20 07/27/23 History mcg-4.5 mcg/actuation aerosol inhaler (Symbicort) rimegepant 75 mg disintegrating 75 mg PO ONCE PRN MIGRAINES 06/19/20 05/04/22 History tablet (Nurtec ODT) lorazepam 1 mg tablet 1 mg PO BID PRN ANXIETY 05/04/22 02/08/23 History progesterone micronized 200 mg 400 mg PO QHS HORMONES 10/11/22 07/27/23 History capsule tramadol 50 mg tablet 50 mg PO TID PAIN 10/11/22 02/10/23 History amlodipine 10 mg tablet 10 mg PO DAILY BLOOD PRESSURE #90 10/28/22 07/27/23 Rx tabs valsartan 320 mg tablet 160 mg (1/2 x 320 mg) PO BID BLOOD 10/28/22 07/27/23 Rx PRESSURE #90 tabs albuterol sulfate 90 mcg/actuation 2 inh inhalation 4X/DAY PRN 11/07/22 07/27/23 Rx breath activated powder inhaler SHORTNESS OF BREATH #1 ea (ProAir RespiClick) metoclopramide HCl 10 mg tablet 10 mg PO Q6H PRN NAUSEA AND 01/07/23 Unknown Rx (Reglan) VOMTING #20 tabs atorvastatin 80 mg tablet 80 mg PO DAILY CHOLESTEROL 02/10/23 02/10/23 History cyclobenzaprine 5 mg tablet 5 mg PO Q8H PRN MUSCLE SPASMS 02/10/23 02/08/23 History potassium chloride 10 mEq 10 meq PO DAILY SUPPLEMENT #90 05/02/23 07/27/23 Rx capsule,extended release caps fluticasone fur. 100 mcg-umeclid 1 inh inhalation DAILY COPD 06/20/23 07/27/23 History 62.5 mcg-vilant 25 mcg inhalat.powder (Trelegy Ellipta) hydrocodone-acetaminophen 5-325mg 1 tab PO Q6H PRN pain 3 days #12 07/28/23 Unknown Rx 5mg-325mg tabs albuterol sulfate 90 mcg/actuation 2 puff inhalation Q4H PRN PRN 07/29/23 Unknown History aerosol inhaler shortness of breath or wheezing cephalexin 500 mg capsule 500 mg PO BID #14 caps 07/29/23 Unknown Rx gabapentin 300 mg capsule 300 mg PO TID 07/29/23 Unknown History galcanezumab-gnlm 120 mg/mL 120 mg subcut Q30D 07/29/23 Unknown History subcutaneous syringe (Emgality) isosorbide mononitrate 30 mg 30 mg PO DAILY 07/29/23 Unknown History tablet,extended release 24 hr levothyroxine 88 mcg tablet 88 mcg PO DAILY 07/29/23 Unknown History nystatin 100,000 unit/gram topical 1 applic topical TID 07/29/23 Unknown History powder polyethylene glycol 3350 17 17 g PO DAILY CONSTIPATION 07/29/23 Unknown History gram/dose oral powder trazodone 50 mg tablet 50 - 100 mg PO QHS insomnia 07/29/23 Unknown History Allergy/AdvReac Type Severity Reaction Status Date / Time hydrochlorothiazide AdvReac Intermediate Contributes Verified 07/29/23 18:27 to gout naproxen (From Naprosyn) AdvReac Intermediate Nausea Verified 07/29/23 18:27 aspirin AdvReac Nausea Verified 07/29/23 18:27 Family History Father , Age 72 Hypertension Mother CAD (coronary artery disease) Myocardial infarction, Onset Age: 55 Hypertension Sister CAD (coronary artery disease) Brother Cancer Surgical History History of cardiac catheterization History of History of carpal tunnel surgery of right wrist History of carpal tunnel surgery of left wrist Hx of cystoscopy History of left heart catheterization (11/11/20) history of uterine ablation Social History household members: none housing: apartment Smoking Status: Never smoker alcohol intake: never substance use type: does not use caffeine: No ROS ROS ED ROS Narrative Constitutional: No fever, no chills. Positive fatigue, drowsiness, generalized weakness. HEENT: No sore throat. No neck pain. No loss of vision. No rhinorrhea. Cardiovascular: No chest pain. No palpitations. No pedal edema. Respiratory: No cough, no shortness of breath. Abdominal: No abdominal pain. No nausea. No vomiting. Genitourinary: No dysuria. No hematuria. Positive urinary frequency. Patient states she is being treated for UTI. Musculoskeletal: No myalgias. No arthralgias. Neurologic: No headaches. No dizziness. No lightheadedness. Skin: No rash. No change in color. Psychiatric: No depression. No anxiety. EXAM Physical Exam Narrative Exam Narrative: Afebrile. Vital signs noted. HEENT: Normocephalic. Atraumatic. PERRL, EOMI. Neck soft and supple. No point tenderness or step off. Cardiovascular: Regular rate and rhythm. No murmurs, rubs, or gallops appreciated. Respiratory: No tachypnea. Lungs clear to auscultation bilaterally. Gastrointestinal: Abdomen soft, nontender, with normoactive bowel sounds. No rebound or guarding. Neurological: Awake. Alert. Nonfocal, nonlateralizing. Follows commands. Skin: No rash. Normal color. No pallor. Musculoskeletal: No pedal edema. Full range of motion extremities. This is with exception of right wrist which is in a splint status post surgery on her carpal tunnel postoperative day 1. Const Vital Signs: 07/29/23 18:26 07/29/23 18:38 07/29/23 18:43 Temperature 97 F L Temperature Source Temporal Pulse Rate 85 77 Respiratory Rate 16 22 H Respiratory Effort Normal Respiratory Pattern Normal Blood Pressure 159/101 H Blood Pressure Mean 120 Pulse Ox 98 95 Oxygen Delivery Method 07/29/23 18:45 07/29/23 19:00 07/29/23 19:15 Temperature Temperature Source Pulse Rate 79 80 81 Respiratory Rate 20 H 22 H 20 H Respiratory Effort Respiratory Pattern Blood Pressure 149/117 H 131/94 H 137/91 H Blood Pressure Mean 128 106 105 Pulse Ox 96 94 93 Oxygen Delivery Method Room Air 07/29/23 19:30 07/29/23 19:45 07/29/23 20:00 Temperature Temperature Source Pulse Rate 85 81 Respiratory Rate 19 H 18 22 H Respiratory Effort Respiratory Pattern Blood Pressure 113/77 132/87 H Blood Pressure Mean 88 101 Pulse Ox 94 95 Oxygen Delivery Method Room Air Room Air 07/29/23 20:15 07/29/23 20:19 07/29/23 20:39 Temperature 96.9 F L Temperature Source Pulse Rate 83 85 82 Respiratory Rate 25 H 20 H 24 H Respiratory Effort Respiratory Pattern Blood Pressure 154/101 H 157/90 H Blood Pressure Mean 118 112 Pulse Ox 95 96 94 Oxygen Delivery Method Room Air MDM MDM MDM Narrative Medical decision making narrative: I reviewed the patient's prior laboratory work, and prior ED visits. 3 days ago, prior to her surgery, she was seen for fatigue as well. I reviewed the operative notes, and she did have difficulty obtaining IV access, and local anesthetic was used to perform the surgery/field block. I will obtain basic laboratory work again as well as a urinalysis, but she has normal vital signs here with the exception of elevated blood pressure 159/101. She is not tachycardic and is not hypoxic, she is not febrile. I reviewed her laboratory work and she has a normal white count of 10.8, hemoglobin stable 11.9, hematocrit 38.3, platelet count normal at 416. Electrolyte panel is reviewed and she has slightly elevated AST of 38 which she has had in the past, sodium normal at 137 with potassium normal at 3.9, chloride 104. Creatinine is elevated at 1.64 but she has history of chronic kidney disease when compared to other laboratory work. Anion gap normal at 7. Urinalysis does show WBCs 25-50 with 1+ bacteria. She states that she has 2 days worth of Bactrim left. I will send her urine for culture and change her to cephalexin for the next week. Upon repeat examination at approximately 2030, she is easily awakened, and answering questions appropriately. While I am unsure as to the cause of her excessive sleeping, I feel she can be discharged to follow-up with her primary care provider, and her orthopedic surgeon. Disposition is discharged home in stable condition. Lab Data Labs: Laboratory Results - last 24 hr 07/29/23 07/29/23 19:00 19:04 WBC 10.8 RBC 4.38 Hgb 11.9 L Hct 38.3 MCV 87.4 MCH 27.2 MCHC 31.1 L RDW Std Deviation 57.1 H RDW Coeff of Alfredo 18.0 H Plt Count 416 MPV 10.3 Immature Gran % (Auto) 0.400 Neut % (Auto) 60.6 Lymph % (Auto) 24.9 Hawkins % (Auto) 8.3 Eos % (Auto) 4.6 Baso % (Auto) 1.2 H Absolute Neuts (auto) 6.6 Absolute Lymphs (auto) 2.70 Nucleated RBC % 0 Sodium 137 Potassium 3.9 Chloride 104 Carbon Dioxide 26.0 Anion Gap 7 BUN 11 Creatinine 1.64 H Estim Creat Clear Calc 55.96 Est GFR (MDRD) Af Amer 42 L Est GFR (MDRD) Non-Af 35 L BUN/Creatinine Ratio 6.7 L Glucose 99 Calcium 9.5 Total Bilirubin 0.30 AST 38 H ALT 34 Alkaline Phosphatase 120 H Total Protein 8.7 H Albumin 3.7 Globulin 5.0 H Albumin/Globulin Ratio 0.7 L Urine Color Yellow Urine Clarity Clear Urine pH 6.0 Ur Specific [place] 1.015 Urine Protein 15 H Urine Glucose (UA) Normal Urine Ketones Negative Urine Occult Blood 10 H Urine Nitrite Negative Urine Bilirubin Negative Urine Urobilinogen Normal Ur Leukocyte Esterase 100 H Urine RBC 0 SEEN Urine WBC 25-50 SEEN Ur Squamous Epith Cells 0-5 SEEN Urine Bacteria 1+ Urine Mucus 0 SEEN Discharge Plan Triage Chief Complaint: Weakness ED Provider: [place] Dx/Rx/DC Orders Clinical Impression: Fatigue, UTI (urinary tract infection), Sleeping excessive Instructions: Urinary Tract Infections in Women, ED Weakness (Uncertain Cause) Prescriptions: New cephalexin 500 mg capsule 500 mg PO BID Qty: 14 0RF No Action budesonide-formoterol [Symbicort] 160-4.5 mcg/actuation HFA aerosol inhaler 2 puff INHALATION BID Nurtec ODT 75 mg tablet,disintegrating 75 mg PO ONCE PRN (Reason: MIGRAINES ) Trelegy Ellipta 100-62.5-25 mcg blister with device 1 inh INHALATION DAILY lorazepam 1 mg tablet 1 mg PO BID PRN (Reason: ANXIETY ) tramadol 50 mg tablet 50 mg PO TID progesterone micronized 200 mg capsule 400 mg PO QHS ProAir RespiClick 90 mcg/actuation aerosol powdr breath activated 2 inh INHALATION 4X/DAY PRN (Reason: SHORTNESS OF BREATH ) Qty: 1 0RF cyclobenzaprine 5 mg tablet 5 mg PO Q8H PRN (Reason: MUSCLE SPASMS ) atorvastatin 80 mg Tablet 80 mg PO DAILY metoclopramide HCl [Reglan] 10 mg tablet 10 mg PO Q6H PRN (Reason: NAUSEA AND VOMTING ) Qty: 20 0RF hydrocodone-acetaminophen 5-325 mg tablet 1 tab PO Q6H PRN (Reason: pain) 3 Days Qty: 12 0RF albuterol sulfate 90 mcg/actuation HFA aerosol inhaler 2 puff inhalation Q4H PRN PRN (Reason: shortness of breath or wheezing) gabapentin 300 mg capsule 300 mg PO TID Emgality Syringe 120 mg/mL syringe 120 mg subcut Q30D isosorbide mononitrate 30 mg tablet extended release 24 hr 30 mg PO DAILY levothyroxine 88 mcg tablet 88 mcg PO DAILY nystatin 100,000 unit/gram powder 1 applic topical TID polyethylene glycol 3350 17 gram/dose powder 17 g PO DAILY trazodone 50 mg tablet 50 - 100 mg PO QHS citalopram 40 mg tablet 40 mg PO DAILY amlodipine 10 mg tablet 10 mg PO DAILY Qty: 90 3RF valsartan 320 mg tablet 160 mg PO BID Qty: 90 3RF potassium chloride 10 mEq capsule, extended release 10 meq PO DAILY Qty: 90 3RF Primary Care Provider: Nasreen Sutton Referrals: Nasreen Sutton MD [Primary Care Provider] - 3-5 Days Print Language: Citizen Of [place] Disposition Disposition: Home, Self Care
[2023-07-29] MEDS: 0.9% Normal Saline (1000mL) 1,000 ML 1000 ML IV (18:57)
[2023-07-29 19:09] LABS: Absolute Neutrophil Count 6.6 X10^3/uL (2.0-7.7); Basophil# 0.13 X10^3/uL; Basophil% 1.2 % (0-1); Eosinophils% 4.6 % (0-5); Hematocrit 38.3 % (37-47); Hemoglobin 11.9 g/dL (12.0-15.0); Lymphocyte % 24.9 % (19-41); Mean Corp Hgb Conc 31.1 g/dL (32-36); Mean Corpuscular Hgb 27.2 pg (27.0-32.0); Mean Corpuscular Volume 87.4 fL (81-99); Mean Platelet Vol. 10.3 fl (6.2-12.0); Monocyte% 8.3 % (0-10); NRBC Flagged by Analyzer 0 % (0-5); Neutrophil # 6.56 X10^3/uL (2.7-7.7); Neutrophil % 60.6 % (47-70); Platelet Count 416 K/mm3 (150-450); RBC Distribution Width SD 57.1 fl (35.1-43.9); Red Blood Count 4.38 M/mm3 (4.2-5.4); White Blood Count 10.8 K/mm3 (4.4-11.0)
[2023-07-29 19:13] LABS: Mucous, Urine 0 SEEN /hpf (<or=2+); Red Blood Cells-Urine 0 SEEN /hpf (0-5)
[2023-07-29 19:28] LABS: ALB/GLOB Ratio 0.7 RATIO (0.9-2.4); AST(SGOT) 38 U/L (15-37); Alanine Aminotransfer ALT/SGPT 34 U/L (13-56); Albumin, Serum 3.7 g/dL (3.2-5.0); Alkaline Phosphatase 120 U/L (45-117); Anion Gap 7 (5-15); BUN 11 mg/dL (7-18); BUN/Creat Ratio 6.7 RATIO (10-20); Calcium,Total 9.5 mg/dL (8.5-10.1); Chloride 104 mmol/L (98-107); Creatinine, Serum 1.64 mg/dL (0.55-1.02); EST Glomerular Filtration Rate 35 mL/min (>60); Est Glom Filt Rate - Afr Amer 42 mL/min (>60); Estimated Creatinine Clearance 55.96 ml/min; Glucose 99 mg/dL (74-106); Potassium 3.9 mmol/L (3.5-5.1); Protein, Total 8.7 g/dL (6.4-8.2); Sodium Level 137 mmol/L (136-145)
[2023-07-29 19:28] LABS: Color, Urine Yellow (Yellow); Glucose, Dipstick Normal (Normal); Ketone-Dipstick Negative (Negative); Leukocyte Esterase-Dipstick 100 /ul (Negative); Nitrite-Dipstick Negative (Negative); Occult Blood-Urine 10 /ul (Negative); Protein-Dipstick 15 mg/dl (Negative); Specific Gravity, Urine 1.015 (1.002-1.030); Urine Bilirubin Dipstick Negative (Negative); Urine Clarity Clear (Clear); Urine Urobilinogen Normal (Normal)
[2023-07-29 20:11] LABS: Bacteria 1+ /hpf (None Seen); Squamous Epithelial Cells - UA 0-5 SEEN /hpf (5-10); White Blood Cells 25-50 SEEN /hpf (0-5)
[2023-07-29] MEDS: Cephalexin 250 MG Capsule 500 MG PO (20:45)
== END 2023-07-29 20:49 | disposition home or self-care (01) ==
PROVIDERS: Emergency Provider Emergency Medicine; PCP Family Medicine; Visit Provider Emergency Medicine
DX: N39.0 Urinary tract infection, site not specified (principal); J44.9 Chronic obstructive pulmonary disease, unspecified; G47.09 Other insomnia; I10 Essential (primary) hypertension; Z79.51 Long term (current) use of inhaled steroids; Z79.899 Other long term (current) drug therapy
CPT/HCPCS: 80053; 81001; 85025; 87077; 87086; 87088; 87186; 99284; A4216

== ENCOUNTER 2023-08-05 08:56 | Emergency (ER) | payer MEDICARE, MEDICAID, SELFPAY ==
[2023-08-05 08:57] VITALS: BP 194/104; PULSE 99; RESP 20; TEMP 36; O2SAT 100
--- NOTE | 2023-08-05 09:10 | EKG12_ITS ---
Test Reason : GENERAL Blood Pressure : / mmHG Vent. Rate : 087 BPM Atrial Rate : 087 BPM P-R Int : 122 ms QRS Dur : 086 ms QT Int : 382 ms P-R-T Axes : 025 -23 180 degrees QTc Int : 459 ms Normal sinus rhythm ST & T wave abnormality, consider inferolateral ischemia Abnormal ECG Confirmed by MIGUEL GONZALEZ, MAGALI ([id number]), editorial clerk SONJA ZABALA ([id number]) on 08/08/2023 8:32:34 AM Referred By: Confirmed By:MAGALI RIVERA MD
--- NOTE | 2023-08-05 09:13 | EDS_ITS ---
HPI History of Present Illness Chief Complaint: Shortness of Breath Detail of Chief Complaint: Shortness of breath Informant: patient Narrative Narrative: Patient presents with shortness of breath that started last evening. Patient states that she called EMS last night but they checked her vitals and did not transport her. She used her inhaler 4 times and did not get much relief relief. She denies chest pain. She denies fever or cough. Patient was supposed to see her subsystems engineer today but when she called in they told her that if she was short of breath to just come to the ER. Patient does have history of COPD and history of asthma. She does not wear home O2. Patient denies recent travel or surgery. Patient states she also called her primary care physician who told her to come in and be seen because her thyroid tests are off the chart. Patient has history of hypothyroidism and is on levothyroxine. Patient recently had increase in her levothyroxine she is taken over 400 mcg daily currently. Patient recently treated for urinary tract infection she believes with cephalexin. [facility] Medical History Walker as ambulation aid Ambulates with cane Low iron History of renal disease High cholesterol DVT (deep venous thrombosis) PONV (postoperative nausea and vomiting) Stroke/cerebrovascular accident Sleep apnea Fall Cardiology follow-up encounter Scalp hematoma Pulmonary embolism Post-menopausal Thyroid disease Injury of head and neck Dietary restriction Difficulty swallowing BiPAP (biphasic positive airway pressure) dependence COPD (chronic obstructive pulmonary disease) Shortness of breath on exertion Leg cramps History of pain when walking History of edema History of echocardiogram History of stress test Syncope Abnormal glucose Noncompliance DAVY treated with BiPAP UTI (urinary tract infection) Vitamin D deficiency Restless leg syndrome Vitamin B12 deficiency Iron deficiency anemia History of chronic back pain Wears glasses Arthritis Non-smoker Hydronephrosis Depression Anemia Migraine headache Chronic kidney disease Diabetes mellitus Gout Celiac disease Hyperlipidemia GERD (gastroesophageal reflux disease) Dyspnea on exertion Chest pain Hypersomnia Cardiac murmur Microcytic anemia Hypertension Morbid obesity with BMI of 40.0-44.9, adult Asthma Hypothyroidism Anxiety Home Medications ?Medication ?Instructions ?Recorded ?Last Taken ?Type citalopram 40 mg tablet 40 mg PO DAILY DEPRESSION/ANXIETY 07/27/19 07/27/23 History budesonide-formoterol HFA 160 2 puff inhalation BID COPD 04/02/20 07/27/23 History mcg-4.5 mcg/actuation aerosol inhaler (Symbicort) rimegepant 75 mg disintegrating 75 mg PO ONCE PRN MIGRAINES 06/19/20 05/04/22 History tablet (Nurtec ODT) lorazepam 1 mg tablet 1 mg PO BID PRN ANXIETY 05/04/22 02/08/23 History progesterone micronized 200 mg 400 mg PO QHS HORMONES 10/11/22 07/27/23 History capsule tramadol 50 mg tablet 50 mg PO TID PAIN 10/11/22 02/10/23 History amlodipine 10 mg tablet 10 mg PO DAILY BLOOD PRESSURE #90 10/28/22 07/27/23 Rx tabs valsartan 320 mg tablet 160 mg (1/2 x 320 mg) PO BID BLOOD 10/28/22 07/27/23 Rx PRESSURE #90 tabs albuterol sulfate 90 mcg/actuation 2 inh inhalation 4X/DAY PRN 11/07/22 07/27/23 Rx breath activated powder inhaler SHORTNESS OF BREATH #1 ea (ProAir RespiClick) metoclopramide HCl 10 mg tablet 10 mg PO Q6H PRN NAUSEA AND 01/07/23 Unknown Rx (Reglan) VOMTING #20 tabs atorvastatin 80 mg tablet 80 mg PO DAILY CHOLESTEROL 02/10/23 02/10/23 History cyclobenzaprine 5 mg tablet 5 mg PO Q8H PRN MUSCLE SPASMS 02/10/23 02/08/23 History potassium chloride 10 mEq 10 meq PO DAILY SUPPLEMENT #90 05/02/23 07/27/23 Rx capsule,extended release caps fluticasone fur. 100 mcg-umeclid 1 inh inhalation DAILY COPD 06/20/23 07/27/23 History 62.5 mcg-vilant 25 mcg inhalat.powder (Trelegy Ellipta) hydrocodone-acetaminophen 5-325mg 1 tab PO Q6H PRN pain 3 days #12 07/28/23 Unknown Rx 5mg-325mg tabs albuterol sulfate 90 mcg/actuation 2 puff inhalation Q4H PRN PRN 07/29/23 Unknown History aerosol inhaler shortness of breath or wheezing cephalexin 500 mg capsule 500 mg PO BID #14 caps 07/29/23 Unknown Rx gabapentin 300 mg capsule 300 mg PO TID 07/29/23 Unknown History galcanezumab-gnlm 120 mg/mL 120 mg subcut Q30D 07/29/23 Unknown History subcutaneous syringe (Emgality) isosorbide mononitrate 30 mg 30 mg PO DAILY 07/29/23 Unknown History tablet,extended release 24 hr levothyroxine 88 mcg tablet 88 mcg PO DAILY 07/29/23 Unknown History nystatin 100,000 unit/gram topical 1 applic topical TID 07/29/23 Unknown History powder polyethylene glycol 3350 17 17 g PO DAILY CONSTIPATION 07/29/23 Unknown History gram/dose oral powder trazodone 50 mg tablet 50 - 100 mg PO QHS insomnia 07/29/23 Unknown History Allergy/AdvReac Type Severity Reaction Status Date / Time hydrochlorothiazide AdvReac Intermediate Contributes Verified 07/29/23 18:27 to gout naproxen (From Naprosyn) AdvReac Intermediate Nausea Verified 07/29/23 18:27 aspirin AdvReac Nausea Verified 07/29/23 18:27 Family History Father , Age 72 Hypertension Mother CAD (coronary artery disease) Myocardial infarction, Onset Age: 55 Hypertension Sister CAD (coronary artery disease) Brother Cancer Surgical History History of cardiac catheterization History of History of carpal tunnel surgery of right wrist History of carpal tunnel surgery of left wrist Hx of cystoscopy History of left heart catheterization (11/11/20) history of uterine ablation Social History household members: none housing: apartment Smoking Status: Never smoker alcohol intake: never substance use type: does not use caffeine: No ROS ROS ED Review of Systems ROS Unobtainable: other Constitutional Constitutional ED: Reports lethargy; Denies chills, fever(s), sweats or weight loss Eyes Eyes: Denies blurry vision, change in vision or diplopia ENT ENT ED: Denies rhinorrhea or sore throat Cardiovascular Cardiovascular: Denies chest pain, orthopnea or racing heartbeat Respiratory/Chest Respiratory/Chest: Reports dyspnea and dyspnea on exertion; Denies cough, orthopnea or sputum Gastrointestinal Gastrointestinal: Denies abdominal pain, diarrhea, nausea or vomiting Genitourinary Genitourinary ED: Denies dysuria, hematuria or urinary frequency Musculoskeletal Musculoskeletal: Denies arthralgias, back pain, myalgias or neck pain Integumentary Denies abscess, Abrasions or rash Neurologic Neurologic: Reports weakness; Denies headache(s) Psychiatric Psychiatric: Denies anxiety, depression or suicidal thoughts Endocrine Endocrinology: Denies polydipsia, polyphagia or polyuria Hematologic/Lymphatic Hematologic/Lymphatic: Denies easy bleeding, easy bruising or lymphadenopathy Allergic/Immunologic Allergic/Immunologic ED: Denies mouth swelling, tongue swelling or urticaria EXAM Physical Exam Const Vital Signs: 08/05/23 08:57 08/05/23 09:07 08/05/23 09:07 Temperature 96.8 F L Temperature Source Temporal Pulse Rate 99 Respiratory Rate 20 H Respiratory Effort Short of Breath Short of Breath Respiratory Depth Normal Respiratory Pattern Normal Normal Blood Pressure 194/104 H Blood Pressure Mean 134 Pulse Ox 100 Oxygen Delivery Method Room Air 08/05/23 10:57 Temperature Temperature Source Pulse Rate 83 Respiratory Rate 16 Respiratory Effort Respiratory Depth Respiratory Pattern Blood Pressure 134/78 H Blood Pressure Mean 96 Pulse Ox 99 Oxygen Delivery Method Room Air Positive well nourished and well developed General Appearance ED: well developed and NAD HEENT Reports TM's clear and moist mucous membranes normocephalic and atraumatic; Negative for trauma or tenderness Tympanic Membrane ED: Yes TM's clear Eyes PERRL and EOMs intact bilaterally General Eye ED: Negative for pale conjunctiva or scleral icterus Neck no lymphadenopathy, supple and no JVD General: Negative for tenderness Chest Wall inspection of chest normal and palpation of chest normal Chest: Negative for tenderness Resp normal respiratory effort and clear to auscultation bilaterally Effort and Inspection: Negative for respiratory distress or pain with movement Auscultation: Negative for rhonchi, wheezes or diminished lung sounds Cardio regular rate, regular rhythm, S1 normal heart sound, S2 normal heart sound and no murmurs Peripheral Pulses: pulses 2+ throughout GI normal to inspection, nondistended, normoactive bowel sounds, soft to palpation, non-tender, non-distended and no masses Back/Spine no CVA tenderness and no thoracic nor lumbar tenderness Extremity normal to inspection General Extremety ED: Negative for edema General Extremity: Negative for edema Neuro oriented x3, CN's II-XII intact bilaterally, no sensory deficits noted and gait normal Sensorium / Orientation: awake, alert, oriented to person, oriented to place and oriented to time Motor Exam: strength 5/5 throughout and strength abnormal Psych mental status grossly normal Skin no rashes or lesions noted and no wounds MDM MDM MDM Narrative Medical decision making narrative: Patient presents with dyspnea that started last night. EMS did not transport last night. Apparently she does have history of COPD and asthma and history of PE. She is currently on Eliquis. I also discussed case with her primary care physician Dr. Sutton who states that the main reason the center and was the dyspnea not the elevated TSH and abnormal thyroid studies. He states that he recently increased her thyroid medication and there is concern for noncompliance. Apparently she had been referred to endocrinology but was not excepted as a patient because of noncompliance issues. Patient does tell me she has been compliant with her Eliquis. EKG obtained arrival showed a sinus rhythm with nonspecific ST changes however when compared with prior EKG no new changes noted. CBC with differential showed a white count of 8.0 with hemoglobin 11 and platelet count of 330. D-dimer was elevated 0.55. Because of prior concerns for noncompliance will obtain a CTA to rule out PE as a cause of her dyspnea and is currently etiology is uncertain. Chemistries unremarkable. D-dimer elevated 0.55. BUN was 11 creatinine 1.47 which is no different from her baseline. BNP was normal at 7.4. Chest x-ray unremarkable. I did do a CTA of her chest to rule out PE and this was negative for PE or dissection. Urinalysis showed 100 leukocyte Estrace and 10-25 WBCs and did send off a culture as she is really not having urinary symptoms at this time. Discussed case with patient and gave her her results. Again I spoke with her primary care physician and he recently increased her levothyroxine. I advised her to follow-up with her subsystems engineer within next 3 to 5 days. Etiology of her dyspnea unclear however in the differential would be anxiety as well and she thinks that certainly is a possibility. Lab Data Attestation: I reviewed the patient's lab results. Labs: Laboratory Results - last 24 hr 08/05/23 08/05/23 07:43 09:23 WBC 8.0 RBC 4.03 L Hgb 11.0 L Hct 36.4 L MCV 90.3 MCH 27.3 MCHC 30.2 L RDW Std Deviation 60.4 H RDW Coeff of Alfredo 18.4 H Plt Count 330 MPV 10.1 Immature Gran % (Auto) 0.500 Neut % (Auto) 66.6 Lymph % (Auto) 18.4 L [place] % (Auto) 8.2 Eos % (Auto) 5.2 H Baso % (Auto) 1.1 H Absolute Neuts (auto) 5.4 Absolute Lymphs (auto) 1.48 Nucleated RBC % 0 D-Dimer Quant (PE/DVT) 0.55 H* Sodium 139 Potassium 4.2 Chloride 105 Carbon Dioxide 25.0 Anion Gap 9 BUN 11 Creatinine 1.47 H Est GFR (MDRD) Af Amer 48 L Est GFR (MDRD) Non-Af 40 L BUN/Creatinine Ratio 7.5 L Glucose 147 H Calcium 9.2 Troponin I High Sens 9 B-Natriuretic Peptide 7.4 TSH 92.80 H Free T4 0.50 L Free T3 pg/dL 1.1 L Urine Color Yellow Urine Clarity Clear Urine pH 6.0 Ur Specific [place] 1.020 Urine Protein Negative Urine Glucose (UA) Normal Urine Ketones Negative Urine Occult Blood Negative Urine Nitrite Negative Urine Bilirubin Negative Urine Urobilinogen Normal Ur Leukocyte Esterase 100 H Urine RBC 0-5 SEEN Urine WBC 10-25 SEEN Ur Squamous Epith Cells 0-5 SEEN Urine Bacteria RARE Urine Mucus 0 SEEN Radiography Diagnostic Testing: Clinical Impression(s) from Imaging Studies Chest X-Ray 08/05/23 09:25 IMPRESSION: Borderline cardiomegaly. No acute abnormality is seen. Electronically Signed: Seun Vieira MD at 9:52 EDT , Chest CTA 08/05/23 09:50 IMPRESSION: Normal CTA chest examination, without a demonstrated pulmonary embolism or arterial dissection. Coronary artery calcification. Electronically Signed: Seun Vieira MD at 10:57 EDT , 1 view chest x-ray obtained interpreted by myself as no evidence of infiltrate or pneumothorax or acute disease process. EKG Initial EKG: Attestation: I personally reviewed and interpreted this EKG as follows: Comments: Sinus rhythm with rate of [address] changes that include flipped T waves anteriorly and laterally. Prior EKG tracings: available for review Prior: Unchanged Discharge Plan Triage Chief Complaint: Shortness of Breath Other Complaint: Abn Labs ED Provider: Brianna Brewster Dx/Rx/DC Orders Clinical Impression: Dyspnea, Hypothyroidism Instructions: ED Dyspnea, ED Hypothyroidism Prescriptions: No Action budesonide-formoterol [Symbicort] 160-4.5 mcg/actuation HFA aerosol inhaler 2 puff INHALATION BID Nurtec ODT 75 mg tablet,disintegrating 75 mg PO ONCE PRN (Reason: MIGRAINES ) Trelegy Ellipta 100-62.5-25 mcg blister with device 1 inh INHALATION DAILY lorazepam 1 mg tablet 1 mg PO BID PRN (Reason: ANXIETY ) tramadol 50 mg tablet 50 mg PO TID progesterone micronized 200 mg capsule 400 mg PO QHS ProAir RespiClick 90 mcg/actuation aerosol powdr breath activated 2 inh INHALATION 4X/DAY PRN (Reason: SHORTNESS OF BREATH ) Qty: 1 0RF cyclobenzaprine 5 mg tablet 5 mg PO Q8H PRN (Reason: MUSCLE SPASMS ) atorvastatin 80 mg Tablet 80 mg PO DAILY metoclopramide HCl [Reglan] 10 mg tablet 10 mg PO Q6H PRN (Reason: NAUSEA AND VOMTING ) Qty: 20 0RF hydrocodone-acetaminophen 5-325 mg tablet 1 tab PO Q6H PRN (Reason: pain) 3 Days Qty: 12 0RF albuterol sulfate 90 mcg/actuation HFA aerosol inhaler 2 puff inhalation Q4H PRN PRN (Reason: shortness of breath or wheezing) gabapentin 300 mg capsule 300 mg PO TID Emgality Syringe 120 mg/mL syringe 120 mg subcut Q30D isosorbide mononitrate 30 mg tablet extended release 24 hr 30 mg PO DAILY levothyroxine 88 mcg tablet 88 mcg PO DAILY nystatin 100,000 unit/gram powder 1 applic topical TID polyethylene glycol 3350 17 gram/dose powder 17 g PO DAILY trazodone 50 mg tablet 50 - 100 mg PO QHS cephalexin 500 mg capsule 500 mg PO BID Qty: 14 0RF citalopram 40 mg tablet 40 mg PO DAILY amlodipine 10 mg tablet 10 mg PO DAILY Qty: 90 3RF valsartan 320 mg tablet 160 mg PO BID Qty: 90 3RF potassium chloride 10 mEq capsule, extended release 10 meq PO DAILY Qty: 90 3RF Primary Care Provider: Nasreen Sutton Referrals: Nasreen Sutton MD [Primary Care Provider] - Activity Restrictions/Additional Instructions: Follow-up with Dr. Wellington within the next 3 to 5 days. Print Language: Malagasy Disposition Disposition: Home, Self Care
[2023-08-05] MEDS: 0.9% Normal Saline (1000mL) 1,000 ML 15 ML IV (09:20)
--- NOTE | 2023-08-05 09:25 | RAD_ITS ---
STUDY: X-RAY CHEST REASON FOR EXAM: Female, 53 years old. Dyspnea TECHNIQUE: Single AP portable view of the chest. COMPARISON: Comparison is made with prior study dated July 25, 2023. FINDINGS: Stable mild elevation of the right hemidiaphragm. The lungs are clear and expanded. There is no demonstrated pleural abnormality. Borderline cardiomegaly. Normal mediastinum and kumar. Normal visualized pulmonary arteries. Normal visualized aortic arch and descending thoracic aorta. Normal visualized thoracic spine. Normal visualized ribs, clavicles, and shoulders. There is no demonstrated abnormality of the visualized soft tissue structures of the upper abdomen. RAD/Chest 1 View (Portable) IMPRESSION: Borderline cardiomegaly. No acute abnormality is seen. Electronically Signed: Seun Vieira MD at 9:52 EDT ,
[2023-08-05 09:38] LABS: Absolute Lymphocyte Count 1.48 X10^3/uL (0.83-4.51); Absolute Neutrophil Count 5.4 X10^3/uL (2.0-7.7); Basophil# 0.09 X10^3/uL; Basophil% 1.1 % (0-1); Eosinophil# 0.42 X10^3/uL; Eosinophils% 5.2 % (0-5); Hematocrit 36.4 % (37-47); Lymphocyte # 1.48 X10^3/ul (0.83-4.51); Lymphocyte % 18.4 % (19-41); Mean Corp Hgb Conc 30.2 g/dL (32-36); Mean Corpuscular Hgb 27.3 pg (27.0-32.0); Mean Corpuscular Volume 90.3 fL (81-99); Mean Platelet Vol. 10.1 fl (6.2-12.0); Monocyte# 0.66 X10^3/uL; Monocyte% 8.2 % (0-10); NRBC Flagged by Analyzer 0 % (0-5); Neutrophil # 5.35 X10^3/uL (2.7-7.7); Neutrophil % 66.6 % (47-70); Platelet Count 330 K/mm3 (150-450); RBC Distribution Width CV 18.4 % (11.6-14.6); RBC Distribution Width SD 60.4 fl (35.1-43.9); Red Blood Count 4.03 M/mm3 (4.2-5.4)
[2023-08-05 09:47] LABS: Mucous, Urine 0 SEEN /hpf (<or=2+)
[2023-08-05 09:49] LABS: D-Dimer Quantitative (DVT/PE) 0.55 FEU/ug/m (0.27-0.49)
--- NOTE | 2023-08-05 09:50 | CT_ITS ---
STUDY: CTA CHEST REASON FOR EXAM: Female, 53 years old. Dyspnea, elevated d-dimer RADIATION DOSAGE (If Supplied By Facility): CTDIvol = ( 19.74 ) mGy, DLP = ( 726.61 ) mGycm TECHNIQUE: The examination was performed with the intravenous administration of IV 100mL [id number]-[id number]. Post-processing of the angiographic images was performed, with multiplanar reformation and 3D reconstruction. Individualized dose optimization techniques were used for this CT. COMPARISON: Comparison is made with prior examination dated March 27, 2023. FINDINGS: Normal enhancement of the main pulmonary artery and right and left pulmonary arteries. Normal enhancement of the bilateral peripheral pulmonary arteries. There is no demonstrated pulmonary embolism. The previously seen pulmonary emboli have resolved. There is a mild degree of atherosclerotic calcification of the aortic arch with tortuosity. There is no demonstrated aortic dissection. There are calcifications of the coronary arteries. Normal mediastinum. Normal hilar regions. Normal visualized trachea and bronchi. The lungs are well expanded. Normal pulmonary parenchyma. Normal pleura. Normal chest wall structures. There are degenerative changes of thoracic spine. Hepatomegaly. CT/CTA Chest W/WO Contrast IMPRESSION: Normal CTA chest examination, without a demonstrated pulmonary embolism or arterial dissection. Coronary artery calcification. Electronically Signed: Seun Vieira MD at 10:57 EDT ,
[2023-08-05 09:53] LABS: Color, Urine Yellow (Yellow); Glucose, Dipstick Normal (Normal); Ketone-Dipstick Negative (Negative); Leukocyte Esterase-Dipstick 100 /ul (Negative); Nitrite-Dipstick Negative (Negative); Occult Blood-Urine Negative /ul (Negative); Protein-Dipstick Negative (Negative); Urine Bilirubin Dipstick Negative (Negative); Urine Clarity Clear (Clear); Urine Urobilinogen Normal (Normal)
[2023-08-05 09:57] LABS: BNP,B-Type NATRIURETIC PEPTIDE 7.4 pg/mL (0-100)
[2023-08-05 10:05] LABS: Bacteria RARE /hpf (None Seen); Red Blood Cells-Urine 0-5 SEEN /hpf (0-5); Squamous Epithelial Cells - UA 0-5 SEEN /hpf (5-10); White Blood Cells 10-25 SEEN /hpf (0-5)
[2023-08-05 10:06] LABS: Anion Gap 9 (5-15); BUN 11 mg/dL (7-18); BUN/Creat Ratio 7.5 RATIO (10-20); Calcium,Total 9.2 mg/dL (8.5-10.1); Chloride 105 mmol/L (98-107); Creatinine, Serum 1.47 mg/dL (0.55-1.02); EST Glomerular Filtration Rate 40 mL/min (>60); Est Glom Filt Rate - Afr Amer 48 mL/min (>60); Free T3 1.1 pg/mL (2.18-3.98); Glucose 147 mg/dL (74-106); Potassium 4.2 mmol/L (3.5-5.1); Sodium Level 139 mmol/L (136-145); Troponin-I HS 9 pg/mL (3.0-54.0)
[2023-08-05 10:57] VITALS: BP 134/78; PULSE 83; RESP 16; O2SAT 99
[2023-08-05 11:35] VITALS: BP 138/76; PULSE 86; RESP 18; TEMP 36.4; O2SAT 100
== END 2023-08-05 11:36 | disposition home or self-care (01) ==
PROVIDERS: Emergency Provider Emergency Medicine; PCP Family Medicine; Visit Provider Emergency Medicine
DX: R06.02 Shortness of breath (principal); J44.9 Chronic obstructive pulmonary disease, unspecified; E11.22 Type 2 diabetes mellitus with diabetic chronic kidney disease; F41.9 Anxiety disorder, unspecified; E03.9 Hypothyroidism, unspecified; E78.00 Pure hypercholesterolemia, unspecified; Z86.73 Personal history of transient ischemic attack (TIA), and cerebral infarction without residual deficits; G47.33 Obstructive sleep apnea (adult) (pediatric); Z99.81 Dependence on supplemental oxygen; N18.9 Chronic kidney disease, unspecified; I12.9 Hypertensive chronic kidney disease with stage 1 through stage 4 chronic kidney disease, or unspecified chronic kidney disease; F32.A Depression, unspecified; Z79.899 Other long term (current) drug therapy; Z79.51 Long term (current) use of inhaled steroids; Z79.01 Long term (current) use of anticoagulants
CPT/HCPCS: 71045; 71275; 80048; 81001; 83880; 84439; 84443; 84481; 84484; 85025; 85379; 87077; 87086; 87088; 87186; 87631; 93005; 96365; 96367; 99284; J7030; Q9967; A4216

== ENCOUNTER 2023-08-07 08:33 | Emergency (ER) | payer MEDICARE, MEDICAID, SELFPAY ==
[2023-08-07 08:33] VITALS: O2SAT 97
[2023-08-07 08:34] VITALS: BP 142/87; PULSE 90; RESP 16; TEMP 37; O2SAT 99; BMI 54.1
--- NOTE | 2023-08-07 08:44 | EDS_ITS ---
HPI History of Present Illness Chief Complaint: Shortness of Breath Informant: patient Onset/Context/Timing Onset: Days Context: sudden Timing: Continuous Quality: Positive for - (Cannot catch my breath) Worsened by: Nothing Relieved by: Nothing Associated Symptoms cough; Negative for rhinorrhea, post nasal drip, ear pain, fever, sore throat, chills, sweats, clear sputum, white sputum, yellow sputum or green sputum Chest Pain: Positive for Sharp Narrative Narrative: Patient presents with shortness of breath and chest pain that has been getting worse over the past 3 days. Patient states she feels like she cannot catch her breath. Patient states nothing makes it better nothing makes it worse. Patient states she has sharp pain in her chest. Patient admits to a cough but denies any sputum production. Patient denies any fevers or chills. Patient admits to some nausea but denies any vomiting. [facility] Medical History Walker as ambulation aid Ambulates with cane Low iron History of renal disease High cholesterol DVT (deep venous thrombosis) PONV (postoperative nausea and vomiting) Stroke/cerebrovascular accident Sleep apnea [facility] follow-up encounter Scalp hematoma Pulmonary embolism Post-menopausal Thyroid disease Injury of head and neck Dietary restriction Difficulty swallowing BiPAP (biphasic positive airway pressure) dependence COPD (chronic obstructive pulmonary disease) Shortness of breath on exertion Leg cramps History of pain when walking History of edema History of echocardiogram History of stress test Syncope Abnormal glucose Noncompliance DAVY treated with BiPAP UTI (urinary tract infection) Vitamin D deficiency Restless leg syndrome Vitamin B12 deficiency Iron deficiency anemia History of chronic back pain Wears glasses Arthritis Non-smoker Hydronephrosis Depression Anemia Migraine headache Chronic kidney disease Diabetes mellitus Gout Celiac disease Hyperlipidemia GERD (gastroesophageal reflux disease) Dyspnea on exertion Chest pain Hypersomnia Cardiac murmur Microcytic anemia Hypertension Morbid obesity with BMI of 40.0-44.9, adult Asthma Hypothyroidism Anxiety Home Medications ?Medication ?Instructions ?Recorded ?Last Taken ?Type citalopram 40 mg tablet 40 mg PO DAILY DEPRESSION/ANXIETY 07/27/19 07/27/23 History budesonide-formoterol HFA 160 2 puff inhalation BID COPD 04/02/20 07/27/23 History mcg-4.5 mcg/actuation aerosol inhaler (Symbicort) rimegepant 75 mg disintegrating 75 mg PO ONCE PRN MIGRAINES 06/19/20 05/04/22 History tablet (Nurtec ODT) lorazepam 1 mg tablet 1 mg PO BID PRN ANXIETY 05/04/22 02/08/23 History progesterone micronized 200 mg 400 mg PO QHS HORMONES 10/11/22 07/27/23 History capsule tramadol 50 mg tablet 50 mg PO TID PAIN 10/11/22 02/10/23 History amlodipine 10 mg tablet 10 mg PO DAILY BLOOD PRESSURE #90 10/28/22 07/27/23 Rx tabs valsartan 320 mg tablet 160 mg (1/2 x 320 mg) PO BID BLOOD 10/28/22 07/27/23 Rx PRESSURE #90 tabs albuterol sulfate 90 mcg/actuation 2 inh inhalation 4X/DAY PRN 11/07/22 07/27/23 Rx breath activated powder inhaler SHORTNESS OF BREATH #1 ea (ProAir RespiClick) metoclopramide HCl 10 mg tablet 10 mg PO Q6H PRN NAUSEA AND 01/07/23 Unknown Rx (Reglan) VOMTING #20 tabs atorvastatin 80 mg tablet 80 mg PO DAILY CHOLESTEROL 02/10/23 02/10/23 History cyclobenzaprine 5 mg tablet 5 mg PO Q8H PRN MUSCLE SPASMS 02/10/23 02/08/23 History potassium chloride 10 mEq 10 meq PO DAILY SUPPLEMENT #90 05/02/23 07/27/23 Rx capsule,extended release caps fluticasone fur. 100 mcg-umeclid 1 inh inhalation DAILY COPD 06/20/23 07/27/23 History 62.5 mcg-vilant 25 mcg inhalat.powder (Trelegy Ellipta) hydrocodone-acetaminophen 5-325mg 1 tab PO Q6H PRN pain 3 days #12 07/28/23 Unknown Rx 5mg-325mg tabs albuterol sulfate 90 mcg/actuation 2 puff inhalation Q4H PRN PRN 07/29/23 Unknown History aerosol inhaler shortness of breath or wheezing cephalexin 500 mg capsule 500 mg PO BID #14 caps 07/29/23 Unknown Rx gabapentin 300 mg capsule 300 mg PO TID 07/29/23 Unknown History galcanezumab-gnlm 120 mg/mL 120 mg subcut Q30D 07/29/23 Unknown History subcutaneous syringe (Emgality) isosorbide mononitrate 30 mg 30 mg PO DAILY 07/29/23 Unknown History tablet,extended release 24 hr levothyroxine 88 mcg tablet 88 mcg PO DAILY 07/29/23 Unknown History nystatin 100,000 unit/gram topical 1 applic topical TID 07/29/23 Unknown History powder polyethylene glycol 3350 17 17 g PO DAILY CONSTIPATION 07/29/23 Unknown History gram/dose oral powder trazodone 50 mg tablet 50 - 100 mg PO QHS insomnia 07/29/23 Unknown History Allergy/AdvReac Type Severity Reaction Status Date / Time hydrochlorothiazide AdvReac Intermediate Contributes Verified 08/07/23 08:34 to gout naproxen (From Naprosyn) AdvReac Intermediate Nausea Verified 08/07/23 08:34 aspirin AdvReac Nausea Verified 08/07/23 08:34 Family History Father , Age 72 Hypertension Mother CAD (coronary artery disease) Myocardial infarction, Onset Age: 55 Hypertension Sister CAD (coronary artery disease) Brother Cancer Surgical History History of cardiac catheterization History of History of carpal tunnel surgery of right wrist History of carpal tunnel surgery of left wrist Hx of cystoscopy History of left heart catheterization (11/11/20) history of uterine ablation Social History household members: none housing: apartment Smoking Status: Never smoker alcohol intake: never substance use type: does not use caffeine: No ROS ROS ED Constitutional Constitutional ED: Denies chills or fever(s) Eyes Eyes: Denies blurry vision or change in vision ENT ENT ED: Denies rhinorrhea or sore throat Cardiovascular Cardiovascular: Reports chest pain; Denies palpitations Respiratory/Chest Respiratory/Chest: Reports cough and dyspnea Gastrointestinal Gastrointestinal: Reports nausea; Denies vomiting Genitourinary Genitourinary ED: Denies dysuria or hematuria Musculoskeletal Musculoskeletal: Reports back pain; Denies neck pain Integumentary Denies abscess or rash Neurologic Neurologic: Reports headache(s); Denies weakness Allergic/Immunologic Allergic/Immunologic ED: Denies mouth swelling or urticaria EXAM Physical Exam Const Vital Signs: 08/07/23 08:33 06/09/24 08:34 08/07/23 09:51 Temperature 98.6 F Temperature Source Temporal Pulse Rate 90 83 Respiratory Rate 16 18 Respiratory Effort Short of Breath Respiratory Depth Normal Respiratory Pattern Normal Normal Blood Pressure 142/87 H Blood Pressure Mean 105 Pulse Ox 99 Oxygen Delivery Method Room Air Room Air 08/07/23 10:33 08/07/23 12:22 Temperature 96.6 F L Temperature Source Temporal Pulse Rate 84 85 Respiratory Rate 16 18 Respiratory Effort Respiratory Depth Respiratory Pattern Blood Pressure 126/78 H 116/85 H Blood Pressure Mean 94 95 Pulse Ox 98 99 Oxygen Delivery Method Room Air Room Air Positive well nourished, well developed and obese General Appearance ED: well developed and NAD Nutritional Appearance: obese HEENT Reports moist mucous membranes Neck supple and no JVD Resp normal respiratory effort and clear to auscultation bilaterally Cardio regular rate and regular rhythm GI non-tender and non-distended Palpation: soft Neuro oriented x3, CN's II-XII intact bilaterally and no sensory deficits noted [place] Coma Scale: document GCS findings Spontaneous Obeys Commands Oriented 15 Sensorium / Orientation: alert Motor Exam: strength 5/5 throughout Psych mental status grossly normal MDM MDM MDM Narrative Medical decision making narrative: Differential diagnosis includes cardiac dysrhythmia, cardiac ischemia, pneumonia, pneumothorax, electrolyte abnormality, musculoskeletal pain, and anxiety. EKG will be obtained to assess for cardiac dysrhythmia and cardiac ischemia. Chest x-ray will be obtained to assess for pneumonia and pneumothorax. CBC will be obtained to assess for leukocytosis and anemia. Basic metabolic profile will be obtained to assess for electrolyte abnormality and renal function. High-sensitivity troponin will be obtained to assess for cardiac ischemia. Lab Data Attestation: I reviewed the patient's lab results. Lab results narrative: CBC was reviewed. There is a mild anemia with a hemoglobin of 10.4 and hematocrit 35.4. Platelets were normal. Basic metabolic profile was reviewed. Creatinine was slightly elevated at 1.38. This is consistent with previous results. High-sensitivity troponin was reviewed and was normal at 7. COVID-19 PCR was reviewed and was negative. Influenza PCR was reviewed and was negative for influenza A and influenza B. RSV PCR was reviewed and was negative. Labs: Laboratory Results - last 24 hr 08/07/23 10:30 WBC 8.2 RBC 3.90 L Hgb 10.4 L Hct 35.4 L MCV 90.8 MCH 26.7 L MCHC 29.4 L RDW Std Deviation 62.2 H RDW Coeff of Alfredo 18.6 H Plt Count 318 MPV 9.9 Immature Gran % (Auto) 0.400 Neut % (Auto) 53.8 Lymph % (Auto) 24.9 Wagoner % (Auto) 11.8 H Eos % (Auto) 7.8 H Baso % (Auto) 1.3 H Absolute Neuts (auto) 4.4 Absolute Lymphs (auto) 2.04 Nucleated RBC % 0 Sodium 137 Potassium 4.1 Chloride 108 H Carbon Dioxide 22.0 Anion Gap 7 BUN 11 Creatinine 1.38 H Estim Creat Clear Calc 66.97 Est GFR (MDRD) Af Amer 51 L Est GFR (MDRD) Non-Af 43 L BUN/Creatinine Ratio 8.0 L Glucose 119 H Calcium 8.8 Troponin I High Sens 7 Radiography Diagnostic Testing: Clinical Impression(s) from Imaging Studies Chest X-Ray 08/07/23 09:45 IMPRESSION: No acute pulmonary process Electronically Signed: Rafa Rogers MD at 10:06 EDT , PA and lateral chest x-ray was obtained. There are 2 views. On my independent interpretation, lung lee are clear. There is normal cardiac silhouette. Bony thorax is normal. There is no acute process noted. Radiologist also interpreted the x-ray and agrees. Treatment and Re-Evaluation :: Patient was given a DuoNeb aerosol here. Patient dose of Tylenol. Patient was advised of her findings. Patient was advised that this is most likely a viral upper respiratory infection. Patient has a HEART score of 3. Patient was advised that this is low risk for acute cardiac event. Patient was instructed to follow-up with her primary care physician in 5 to 7 days. Patient was instructed to return if worse in any way. Patient understood and was agreeable with the plan. All questions were answered. Discharge Plan Triage Chief Complaint: Shortness of Breath ED Provider: Anam Cuevas Dx/Rx/DC Orders Clinical Impression: Dyspnea, Essential hypertension Instructions: ED Dyspnea Prescriptions: No Action budesonide-formoterol [Symbicort] 160-4.5 mcg/actuation HFA aerosol inhaler 2 puff INHALATION BID Nurtec ODT 75 mg tablet,disintegrating 75 mg PO ONCE PRN (Reason: MIGRAINES ) Trelegy Ellipta 100-62.5-25 mcg blister with device 1 inh INHALATION DAILY lorazepam 1 mg tablet 1 mg PO BID PRN (Reason: ANXIETY ) tramadol 50 mg tablet 50 mg PO TID progesterone micronized 200 mg capsule 400 mg PO QHS ProAir RespiClick 90 mcg/actuation aerosol powdr breath activated 2 inh INHALATION 4X/DAY PRN (Reason: SHORTNESS OF BREATH ) Qty: 1 0RF cyclobenzaprine 5 mg tablet 5 mg PO Q8H PRN (Reason: MUSCLE SPASMS ) atorvastatin 80 mg Tablet 80 mg PO DAILY metoclopramide HCl [Reglan] 10 mg tablet 10 mg PO Q6H PRN (Reason: NAUSEA AND VOMTING ) Qty: 20 0RF hydrocodone-acetaminophen 5-325 mg tablet 1 tab PO Q6H PRN (Reason: pain) 3 Days Qty: 12 0RF albuterol sulfate 90 mcg/actuation HFA aerosol inhaler 2 puff inhalation Q4H PRN PRN (Reason: shortness of breath or wheezing) gabapentin 300 mg capsule 300 mg PO TID Emgality Syringe 120 mg/mL syringe 120 mg subcut Q30D isosorbide mononitrate 30 mg tablet extended release 24 hr 30 mg PO DAILY levothyroxine 88 mcg tablet 88 mcg PO DAILY nystatin 100,000 unit/gram powder 1 applic topical TID polyethylene glycol 3350 17 gram/dose powder 17 g PO DAILY trazodone 50 mg tablet 50 - 100 mg PO QHS cephalexin 500 mg capsule 500 mg PO BID Qty: 14 0RF citalopram 40 mg tablet 40 mg PO DAILY amlodipine 10 mg tablet 10 mg PO DAILY Qty: 90 3RF valsartan 320 mg tablet 160 mg PO BID Qty: 90 3RF potassium chloride 10 mEq capsule, extended release 10 meq PO DAILY Qty: 90 3RF Primary Care Provider: Nasreen Sutton Referrals: Nasreen Sutton MD [Primary Care Provider] - 5-7 Days Print Language: Andorran Disposition Disposition: Home, Self Care
--- NOTE | 2023-08-07 09:35 | EKG12_ITS ---
Test Reason : SOB Blood Pressure : / mmHG Vent. Rate : 078 BPM Atrial Rate : 078 BPM P-R Int : 142 ms QRS Dur : 084 ms QT Int : 400 ms P-R-T Axes : 051 -14 203 degrees QTc Int : 456 ms Normal sinus rhythm Nonspecific ST-T wave changes Abnormal ECG Confirmed by Wse Medeiros ([id number]), newspaper editor ZANDER MAYER ([id number]) on 08/08/2023 11:20:40 AM Referred By: Confirmed By:Wes Medeiros
--- NOTE | 2023-08-07 09:45 | RAD_ITS ---
STUDY: X-RAY CHEST REASON FOR EXAM: Female, 53 years old. Shortness of breath and cough TECHNIQUE: PA and 2 lateral views of the chest. COMPARISON: 08/05/2023 FINDINGS: EKG leads overlie the chest The lungs are clear and expanded. There is no demonstrated pleural abnormality. Normal size heart. Normal mediastinum and kumar. Normal visualized pulmonary arteries. Normal visualized aortic arch and descending thoracic aorta. Normal visualized thoracic spine. Normal visualized ribs, clavicles, and shoulders. There is no demonstrated abnormality of the visualized soft tissue structures of the upper abdomen. RAD/Chest PA and Lateral IMPRESSION: No acute pulmonary process Electronically Signed: Rafa Rogers MD at 10:06 EDT ,
[2023-08-07 09:51] VITALS: PULSE 83; RESP 18
[2023-08-07] MEDS: Ipratropium/Albuterol Sulfate 3 ML AMPUL.NEB INHALATION (09:51)
[2023-08-07 10:33] VITALS: BP 126/78; PULSE 84; RESP 16; O2SAT 98
[2023-08-07 10:33] LABS: Absolute Lymphocyte Count 2.04 X10^3/uL (0.83-4.51); Absolute Neutrophil Count 4.4 X10^3/uL (2.0-7.7); Basophil# 0.11 X10^3/uL; Basophil% 1.3 % (0-1); Eosinophil# 0.64 X10^3/uL; Eosinophils% 7.8 % (0-5); Hematocrit 35.4 % (37-47); Hemoglobin 10.4 g/dL (12.0-15.0); Lymphocyte # 2.04 X10^3/ul (0.83-4.51); Lymphocyte % 24.9 % (19-41); Mean Corp Hgb Conc 29.4 g/dL (32-36); Mean Corpuscular Hgb 26.7 pg (27.0-32.0); Mean Corpuscular Volume 90.8 fL (81-99); Mean Platelet Vol. 9.9 fl (6.2-12.0); Monocyte# 0.97 X10^3/uL; Monocyte% 11.8 % (0-10); NRBC Flagged by Analyzer 0 % (0-5); Neutrophil # 4.41 X10^3/uL (2.7-7.7); Neutrophil % 53.8 % (47-70); Platelet Count 318 K/mm3 (150-450); RBC Distribution Width CV 18.6 % (11.6-14.6); RBC Distribution Width SD 62.2 fl (35.1-43.9); White Blood Count 8.2 K/mm3 (4.4-11.0)
[2023-08-07 11:00] LABS: Anion Gap 7 (5-15); BUN 11 mg/dL (7-18); Calcium,Total 8.8 mg/dL (8.5-10.1); Chloride 108 mmol/L (98-107); Creatinine, Serum 1.38 mg/dL (0.55-1.02); EST Glomerular Filtration Rate 43 mL/min (>60); Est Glom Filt Rate - Afr Amer 51 mL/min (>60); Estimated Creatinine Clearance 66.97 ml/min; Glucose 119 mg/dL (74-106); Potassium 4.1 mmol/L (3.5-5.1); Sodium Level 137 mmol/L (136-145); Troponin-I HS 7 pg/mL (3.0-54.0)
[2023-08-07] MEDS: Acetaminophen 500 MG Tablet 1000 MG PO (11:21)
[2023-08-07 12:22] VITALS: BP 116/85; PULSE 85; RESP 18; TEMP 35.9; O2SAT 99
[2023-08-07 12:51] VITALS: BP 112/71; PULSE 68; RESP 14; TEMP 36.3; O2SAT 97
== END 2023-08-07 12:52 | disposition home or self-care (01) ==
PROVIDERS: Emergency Provider Emergency Medicine; PCP Family Medicine; Visit Provider Emergency Medicine
DX: R06.00 Dyspnea, unspecified (principal); E80.0 Hereditary erythropoietic porphyria; J44.9 Chronic obstructive pulmonary disease, unspecified; E66.01 Morbid (severe) obesity due to excess calories; I12.9 Hypertensive chronic kidney disease with stage 1 through stage 4 chronic kidney disease, or unspecified chronic kidney disease; N18.9 Chronic kidney disease, unspecified; K21.9 Gastro-esophageal reflux disease without esophagitis; G47.33 Obstructive sleep apnea (adult) (pediatric); Z79.899 Other long term (current) drug therapy; Z79.51 Long term (current) use of inhaled steroids
CPT/HCPCS: 36415; 71046; 80048; 84484; 85025; 87631; 93005; 94640; 99284; A4216

== ENCOUNTER 2023-08-12 18:28 | Emergency (ER) | payer MEDICARE, MEDICAID, SELFPAY ==
[2023-08-12 18:29] VITALS: BP 179/112; PULSE 92; RESP 18; TEMP 35.8; O2SAT 98
[2023-08-12 18:35] VITALS: BMI 52.9
--- NOTE | 2023-08-12 18:55 | EX.ED.DYSGE1 ---
HPI History of Present Illness Chief Complaint: Abd Pain Narrative Narrative: 53-year-old female with PMH of HTN, HLD, DM2, COPD, CKD, CAD, kidney stones developed generalized abdominal pain last evening. Its constant but waxes and wanes in intensity without pattern. She has had decreased appetite and nausea today but no vomiting. No fever or chills. She denies bladder or bowel changes. Last BM was a few days ago which is typical for her. She is concerned the pain could be from a kidney stone. She states she has had several stones in the past that required a stent. She also wants evaluated for low pain in the sole of her left foot. She was walking barefoot a week ago and thinks a piece of mulch was stuck in there. She states her mom could see it but not remove it. She has been soaking it in Epsom salts but the skin healed and now she has pain with walking on it. [facility] Medical History Walker as ambulation aid Ambulates with cane Low iron History of renal disease High cholesterol DVT (deep venous thrombosis) PONV (postoperative nausea and vomiting) Stroke/cerebrovascular accident Sleep apnea [facility] follow-up encounter Scalp hematoma Pulmonary embolism Post-menopausal Thyroid disease Injury of head and neck Dietary restriction Difficulty swallowing BiPAP (biphasic positive airway pressure) dependence COPD (chronic obstructive pulmonary disease) Shortness of breath on exertion Leg cramps History of pain when walking History of edema History of echocardiogram History of stress test Syncope Abnormal glucose Noncompliance DAVY treated with BiPAP UTI (urinary tract infection) Vitamin D deficiency Restless leg syndrome Vitamin B12 deficiency Iron deficiency anemia History of chronic back pain Wears glasses Arthritis Non-smoker Hydronephrosis Depression Anemia Migraine headache Chronic kidney disease Diabetes mellitus Gout Celiac disease Hyperlipidemia GERD (gastroesophageal reflux disease) Dyspnea on exertion Chest pain Hypersomnia Cardiac murmur Microcytic anemia Hypertension Morbid obesity with BMI of 40.0-44.9, adult Asthma Hypothyroidism Anxiety Home Medications ?Medication ?Instructions ?Recorded ?Last Taken ?Type citalopram 40 mg tablet 40 mg PO DAILY DEPRESSION/ANXIETY 07/27/19 07/27/23 History budesonide-formoterol HFA 160 2 puff inhalation BID COPD 04/02/20 07/27/23 History mcg-4.5 mcg/actuation aerosol inhaler (Symbicort) rimegepant 75 mg disintegrating 75 mg PO ONCE PRN MIGRAINES 06/19/20 05/04/22 History tablet (Nurtec ODT) lorazepam 1 mg tablet 1 mg PO BID PRN ANXIETY 05/04/22 02/08/23 History progesterone micronized 200 mg 400 mg PO QHS HORMONES 10/11/22 07/27/23 History capsule tramadol 50 mg tablet 50 mg PO TID PAIN 10/11/22 02/10/23 History amlodipine 10 mg tablet 10 mg PO DAILY BLOOD PRESSURE #90 10/28/22 07/27/23 Rx tabs valsartan 320 mg tablet 160 mg (1/2 x 320 mg) PO BID BLOOD 10/28/22 07/27/23 Rx PRESSURE #90 tabs albuterol sulfate 90 mcg/actuation 2 inh inhalation 4X/DAY PRN 11/07/22 07/27/23 Rx breath activated powder inhaler SHORTNESS OF BREATH #1 ea (ProAir RespiClick) metoclopramide HCl 10 mg tablet 10 mg PO Q6H PRN NAUSEA AND 01/07/23 Unknown Rx (Reglan) VOMTING #20 tabs atorvastatin 80 mg tablet 80 mg PO DAILY CHOLESTEROL 02/10/23 02/10/23 History cyclobenzaprine 5 mg tablet 5 mg PO Q8H PRN MUSCLE SPASMS 02/10/23 02/08/23 History potassium chloride 10 mEq 10 meq PO DAILY SUPPLEMENT #90 05/02/23 07/27/23 Rx capsule,extended release caps fluticasone fur. 100 mcg-umeclid 1 inh inhalation DAILY COPD 06/20/23 07/27/23 History 62.5 mcg-vilant 25 mcg inhalat.powder (Trelegy Ellipta) hydrocodone-acetaminophen 5-325mg 1 tab PO Q6H PRN pain 3 days #12 07/28/23 Unknown Rx 5mg-325mg tabs albuterol sulfate 90 mcg/actuation 2 puff inhalation Q4H PRN PRN 07/29/23 Unknown History aerosol inhaler shortness of breath or wheezing cephalexin 500 mg capsule 500 mg PO BID #14 caps 07/29/23 Unknown Rx gabapentin 300 mg capsule 300 mg PO TID 07/29/23 Unknown History galcanezumab-gnlm 120 mg/mL 120 mg subcut Q30D 07/29/23 Unknown History subcutaneous syringe (Emgality) isosorbide mononitrate 30 mg 30 mg PO DAILY 07/29/23 Unknown History tablet,extended release 24 hr levothyroxine 88 mcg tablet 88 mcg PO DAILY 07/29/23 Unknown History nystatin 100,000 unit/gram topical 1 applic topical TID 07/29/23 Unknown History powder polyethylene glycol 3350 17 17 g PO DAILY CONSTIPATION 07/29/23 Unknown History gram/dose oral powder trazodone 50 mg tablet 50 - 100 mg PO QHS insomnia 07/29/23 Unknown History magnesium citrate 300 ml PO X1 #1 BOTTLE 08/12/23 Unknown Rx polyethylene glycol 3350 17 17 g PO DAILY #119 grams 08/12/23 Unknown Rx gram/dose oral powder (Miralax) Allergy/AdvReac Type Severity Reaction Status Date / Time hydrochlorothiazide AdvReac Intermediate Contributes Verified 08/12/23 18:28 to gout naproxen (From Naprosyn) AdvReac Intermediate Nausea Verified 08/12/23 18:28 aspirin AdvReac Nausea Verified 08/12/23 18:28 Family History Father , Age 72 Hypertension Mother CAD (coronary artery disease) Myocardial infarction, Onset Age: 55 Hypertension Sister CAD (coronary artery disease) Brother Cancer Surgical History History of cardiac catheterization History of History of carpal tunnel surgery of right wrist History of carpal tunnel surgery of left wrist Hx of cystoscopy History of left heart catheterization (11/11/20) history of uterine ablation Social History household members: none housing: apartment Smoking Status: Never smoker alcohol intake: never substance use type: does not use caffeine: No ROS ROS ED ROS Narrative Constitutional: Negative for fever, chills, malaise. CVS: Negative for palpitations, chest pain, syncope. Respiratory: Negative for shortness of breath, cough. GI: Positive for abdominal pain, nausea. Negative for vomiting, diarrhea, melena, hematochezia. : Negative for dysuria, hematuria or frequency. EXAM Physical Exam Narrative Exam Narrative: CONST: Patient sitting in no acute distress. EYES: Normal inspection. NECK: Normal inspection. RESP: No respiratory distress, CTAB. CVS: Regular rate and rhythm, no murmur, no gallop. ABD: Soft with generalized tenderness, no guarding or rebound, nondistended, no hepatosplenomegaly. SKIN: Color normal, no rash, warm, dry, intact. EXTREMITIES: Normal appearance. On the left foot mid plantar surface there is a small palpable callus with central area of hard skin. No swelling or fluctuance or crepitus, no erythema, no drainage. 2+ DP pulses. NEURO: Alert and answering questions appropriately. PSYCH: Normal affect. Const Vital Signs: 08/12/23 18:29 08/12/23 20:28 Temperature 96.5 F L Temperature Source Temporal Pulse Rate 92 89 Respiratory Rate 18 18 Blood Pressure 179/112 H 160/92 H Blood Pressure Mean 134 114 Pulse Ox 98 94 Oxygen Delivery Method Room Air Room Air MDM MDM MDM Narrative Medical decision making narrative: Differential: ? Constipation ? Diverticulitis ? Gallbladder etiology ? Appendicitis ? Kidney stone ? UTI Patient presents with generalized abdominal pain that started last night. She appears well and nontoxic. She is hypertensive with otherwise stable vital signs. Abdomen is soft with generalized tenderness. No peritoneal signs. No CVA tenderness. Blood work overall is unremarkable. WBC is 10.0, Hgb of 11.4 stable, normal electrolytes, creatinine 1.28 at baseline. LFTs and lipase unremarkable. UA has leukocyte esterase and 10-25 WBCs but is nitrite and bacteria negative with epithelial cells. She does not have urinary symptoms. CT shows constipation with no other acute findings. I prescribed magnesium citrate and then MiraLAX to take 1 cap daily. She should follow-up with her primary care doctor and was discharged in stable condition. Regarding her left foot pain the x-ray shows no acute findings or foreign body. There is a small callus on the sole of her foot but no visible foreign body and no signs of cellulitis or abscess. 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 Lab Data Attestation: I reviewed the patient's lab results. Labs: Laboratory Results - last 24 hr 08/12/23 08/12/23 18:55 19:30 WBC 10.0 RBC 4.25 Hgb 11.4 L Hct 38.0 MCV 89.4 MCH 26.8 L MCHC 30.0 L RDW Std Deviation 61.1 H RDW Coeff of Alfredo 18.6 H Plt Count 295 MPV 9.9 Immature Gran % (Auto) 0.400 Neut % (Auto) 62.8 Lymph % (Auto) 20.9 [place] % (Auto) 8.5 Eos % (Auto) 6.1 H Baso % (Auto) 1.3 H Absolute Neuts (auto) 6.3 Absolute Lymphs (auto) 2.08 Nucleated RBC % 0 Sodium 138 Potassium 4.0 Chloride 104 Carbon Dioxide 25.0 Anion Gap 9 BUN 14 Creatinine 1.28 H Estim Creat Clear Calc 71.46 Est GFR (MDRD) Af Amer 56 L Est GFR (MDRD) Non-Af 46 L BUN/Creatinine Ratio 10.9 Glucose 114 H Calcium 9.7 Total Bilirubin 0.40 AST 55 H ALT 45 Alkaline Phosphatase 119 H Total Protein 8.5 H Albumin 3.6 Globulin 4.9 H Albumin/Globulin Ratio 0.7 L Lipase 57 Urine Color Yellow Urine Clarity Sl. Cloudy Urine pH 6.5 Ur Specific [place] 1.015 Urine Protein 15 H Urine Glucose (UA) Normal Urine Ketones Negative Urine Occult Blood Negative Urine Nitrite Negative Urine Bilirubin Negative Urine Urobilinogen Normal Ur Leukocyte Esterase 100 H Urine RBC 0 SEEN Urine WBC 10-25 SEEN Ur Squamous Epith Cells 5-10 SEEN Urine Bacteria RARE Urine Mucus 0 SEEN Radiography Diagnostic Testing: Clinical Impression(s) from Imaging Studies Abdomen/Pelvis CT 08/12/23 20:11 IMPRESSION: No acute findings in the abdomen or pelvis. Colonic fecal burden consistent with clinical constipation. Electronically Signed: Donell Joseph MD at 22:03 EDT , Foot X-Ray 08/12/23 20:25 IMPRESSION: No radiodense foreign body. Electronically Signed: Donell Joseph MD at 20:36 EDT , ED attending interpretation of left foot shows no visible foreign body, no fracture or dislocation. Discharge Plan Triage Chief Complaint: Abd Pain ED Midlevel Provider: Ely Basurto ED Provider: Nannette Stahl Dx/Rx/DC Orders Clinical Impression: Abdominal pain, Constipation, Acute pain of left foot Instructions: ED Constipation (Adult) Prescriptions: New polyethylene glycol 3350 [Miralax] 17 gram/dose powder 17 g PO DAILY Qty: 119 0RF magnesium citrate Solution 300 ml PO X1 Qty: 1 0RF No Action budesonide-formoterol [Symbicort] 160-4.5 mcg/actuation HFA aerosol inhaler 2 puff INHALATION BID Nurtec ODT 75 mg tablet,disintegrating 75 mg PO ONCE PRN (Reason: MIGRAINES ) Trelegy Ellipta 100-62.5-25 mcg blister with device 1 inh INHALATION DAILY lorazepam 1 mg tablet 1 mg PO BID PRN (Reason: ANXIETY ) tramadol 50 mg tablet 50 mg PO TID progesterone micronized 200 mg capsule 400 mg PO QHS ProAir RespiClick 90 mcg/actuation aerosol powdr breath activated 2 inh INHALATION 4X/DAY PRN (Reason: SHORTNESS OF BREATH ) Qty: 1 0RF cyclobenzaprine 5 mg tablet 5 mg PO Q8H PRN (Reason: MUSCLE SPASMS ) atorvastatin 80 mg Tablet 80 mg PO DAILY metoclopramide HCl [Reglan] 10 mg tablet 10 mg PO Q6H PRN (Reason: NAUSEA AND VOMTING ) Qty: 20 0RF hydrocodone-acetaminophen 5-325 mg tablet 1 tab PO Q6H PRN (Reason: pain) 3 Days Qty: 12 0RF albuterol sulfate 90 mcg/actuation HFA aerosol inhaler 2 puff inhalation Q4H PRN PRN (Reason: shortness of breath or wheezing) gabapentin 300 mg capsule 300 mg PO TID Emgality Syringe 120 mg/mL syringe 120 mg subcut Q30D isosorbide mononitrate 30 mg tablet extended release 24 hr 30 mg PO DAILY levothyroxine 88 mcg tablet 88 mcg PO DAILY nystatin 100,000 unit/gram powder 1 applic topical TID polyethylene glycol 3350 17 gram/dose powder 17 g PO DAILY trazodone 50 mg tablet 50 - 100 mg PO QHS cephalexin 500 mg capsule 500 mg PO BID Qty: 14 0RF citalopram 40 mg tablet 40 mg PO DAILY amlodipine 10 mg tablet 10 mg PO DAILY Qty: 90 3RF valsartan 320 mg tablet 160 mg PO BID Qty: 90 3RF potassium chloride 10 mEq capsule, extended release 10 meq PO DAILY Qty: 90 3RF Primary Care Provider: Nasreen Sutton Referrals: Nasreen Sutton MD [Primary Care Provider] - Activity Restrictions/Additional Instructions: Your CAT scan shows constipation. Please take the magnesium citrate which should cause significant bowel movements and clear you out. Then take 1 Capful of MiraLAX Daily and Follow-Up with Your Primary Care Doctor. Print Language: Stateless Disposition Disposition: Home, Self Care
[2023-08-12] MEDS: 0.9% Normal Saline (1000mL) 1,000 ML 999 ML IV (19:01)
[2023-08-12] MEDS: Ondansetron 4 MG/2 ML Vial IV ×2 (19:01→22:22)
[2023-08-12] MEDS: Morphine 4 MG/ML Syringe IV (19:01)
[2023-08-12 19:06] LABS: Absolute Lymphocyte Count 2.08 X10^3/uL (0.83-4.51); Absolute Neutrophil Count 6.3 X10^3/uL (2.0-7.7); Basophil# 0.13 X10^3/uL; Basophil% 1.3 % (0-1); Eosinophil# 0.61 X10^3/uL; Eosinophils% 6.1 % (0-5); Hemoglobin 11.4 g/dL (12.0-15.0); Lymphocyte # 2.08 X10^3/ul (0.83-4.51); Lymphocyte % 20.9 % (19-41); Mean Corpuscular Hgb 26.8 pg (27.0-32.0); Mean Corpuscular Volume 89.4 fL (81-99); Mean Platelet Vol. 9.9 fl (6.2-12.0); Monocyte# 0.85 X10^3/uL; Monocyte% 8.5 % (0-10); NRBC Flagged by Analyzer 0 % (0-5); Neutrophil # 6.26 X10^3/uL (2.7-7.7); Neutrophil % 62.8 % (47-70); Platelet Count 295 K/mm3 (150-450); RBC Distribution Width CV 18.6 % (11.6-14.6); RBC Distribution Width SD 61.1 fl (35.1-43.9); Red Blood Count 4.25 M/mm3 (4.2-5.4)
[2023-08-12 19:53] LABS: Mucous, Urine 0 SEEN /hpf (<or=2+); Red Blood Cells-Urine 0 SEEN /hpf (0-5)
[2023-08-12 19:54] LABS: Color, Urine Yellow (Yellow); Glucose, Dipstick Normal (Normal); Ketone-Dipstick Negative (Negative); Leukocyte Esterase-Dipstick 100 /ul (Negative); Nitrite-Dipstick Negative (Negative); Occult Blood-Urine Negative /ul (Negative); Protein-Dipstick 15 mg/dl (Negative); Specific Gravity, Urine 1.015 (1.002-1.030); Urine Bilirubin Dipstick Negative (Negative); Urine Clarity Sl. Cloudy (Clear); Urine Urobilinogen Normal (Normal); Urine pH 6.5 (5.0 - 8.0)
[2023-08-12 20:01] LABS: White Blood Cells 10-25 SEEN /hpf (0-5)
[2023-08-12 20:02] LABS: Bacteria RARE /hpf (None Seen); Squamous Epithelial Cells - UA 5-10 SEEN /hpf (5-10)
[2023-08-12 20:06] LABS: ALB/GLOB Ratio 0.7 RATIO (0.9-2.4); AST(SGOT) 55 U/L (15-37); Alanine Aminotransfer ALT/SGPT 45 U/L (13-56); Albumin, Serum 3.6 g/dL (3.2-5.0); Alkaline Phosphatase 119 U/L (45-117); Anion Gap 9 (5-15); BUN 14 mg/dL (7-18); BUN/Creat Ratio 10.9 RATIO (10-20); Calcium,Total 9.7 mg/dL (8.5-10.1); Chloride 104 mmol/L (98-107); Creatinine, Serum 1.28 mg/dL (0.55-1.02); EST Glomerular Filtration Rate 46 mL/min (>60); Est Glom Filt Rate - Afr Amer 56 mL/min (>60); Estimated Creatinine Clearance 71.46 ml/min; Globulin 4.9 g/dL (2.2-4.2); Glucose 114 mg/dL (74-106); Lipase 57 U/L (13-75); Protein, Total 8.5 g/dL (6.4-8.2); Sodium Level 138 mmol/L (136-145)
--- NOTE | 2023-08-12 20:11 | CT_ITS ---
INDICATION: abdominal pain EXAMINATION: CT ABDOMEN AND PELVIS WITH CONTRAST - CT Abdomen And Pelvis W/ Contrast Injection TECHNIQUE: Helically acquired images were obtained of the abdomen and pelvis following IV contrast. A radiation dose optimization technique was used for this scan. IV Contrast dosage and agent: 100 cc [id number] Oral contrast: None. COMPARISON: 01/02/2023 FINDINGS: LOWER CHEST: Lung bases are clear. LIVER: Homogeneous. No focal mass. GALLBLADDER AND BILIARY TREE: No calcified gallstones. No gallbladder distension or wall edema. No intra- or extrahepatic biliary ductal dilation. PANCREAS: No focal cystic or solid mass. SPLEEN: Normal size without focal cystic or solid mass. ADRENAL GLANDS: No nodules. KIDNEYS AND URETERS: Stable bilateral parapelvic cysts. Nonobstructing right renal calculus. No hydronephrosis. PERITONEUM: No ascites or free air. BOWEL: No evidence of acute appendicitis. No stomach or bowel distension. Diffusely increased colonic fecal burden. LYMPH NODES: No enlarged mesenteric or retroperitoneal lymph nodes. VESSELS: Aorta is non-dilated. URINARY BLADDER: Unremarkable. REPRODUCTIVE ORGANS: No pelvic masses. BONES: No acute or aggressive abnormality. CT/Abdomen/Pelvis W IV Cont ONLY IMPRESSION: No acute findings in the abdomen or pelvis. Colonic fecal burden consistent with clinical constipation. Electronically Signed: Donell Joseph MD at 22:03 EDT ,
--- NOTE | 2023-08-12 20:25 | RAD_ITS ---
INDICATION: foreign body EXAMINATION/TECHNIQUE: X-RAY - LEFT XR Foot Min 3 Views 3 VIEWS COMPARISON: None. FINDINGS: SOFT TISSUES: Mild forefoot soft tissue swelling, no gas formation. No radiopaque foreign body. BONES/JOINTS: No acute fracture. Multiple toes held in flexion, joint spaces otherwise anatomically aligned. No sclerotic or destructive changes observed. RAD/Foot min 3 Views IMPRESSION: No radiodense foreign body. Electronically Signed: Donell Joseph MD at 20:36 EDT ,
[2023-08-12 20:28] VITALS: BP 160/92; PULSE 89; RESP 18; O2SAT 94
[2023-08-12 22:00] VITALS: BP 164/90; PULSE 88; RESP 16; O2SAT 92
[2023-08-12 22:25] VITALS: BP 178/112; PULSE 92; RESP 20; TEMP 36.1; O2SAT 94
== END 2023-08-12 22:26 | disposition home or self-care (01) ==
PROVIDERS: Physician Assistant; Emergency Provider Emergency Medicine; PCP Family Medicine; Visit Provider Emergency Medicine
DX: R10.84 Generalized abdominal pain (principal); J44.9 Chronic obstructive pulmonary disease, unspecified; E11.22 Type 2 diabetes mellitus with diabetic chronic kidney disease; N18.9 Chronic kidney disease, unspecified; I12.9 Hypertensive chronic kidney disease with stage 1 through stage 4 chronic kidney disease, or unspecified chronic kidney disease; I25.10 Atherosclerotic heart disease of native coronary artery without angina pectoris; K59.00 Constipation, unspecified; E78.00 Pure hypercholesterolemia, unspecified; M79.672 Pain in left foot; Z79.899 Other long term (current) drug therapy
CPT/HCPCS: 73630; 74177; 80053; 81001; 83690; 85025; 87077; 87086; 87088; 87186; 96361; 96374; 96375; 96376; 99283; Q9967; A4216; J2405

== ENCOUNTER 2023-08-15 15:57 | Emergency (ER) | payer MEDICARE, MEDICAID, SELFPAY ==
[2023-08-15 15:58] VITALS: BP 170/112; PULSE 103; RESP 18; TEMP 36.2; O2SAT 98; BMI 53.1
--- NOTE | 2023-08-15 16:25 | EX.ED.DYSGE1 ---
HPI <ROBLES Sheets - Last Filed: 08/15/23 21:20> History of Present Illness Chief Complaint: General Illness Narrative Narrative: Patient presenting today due to fatigue, constipation, abdominal pain, and shortness of breath. She reports that she has had abdominal pain over the last several days, she was seen here in the emergency department on 08/12/2023 and was told she was constipated. She did try taking MiraLAX once as well as another stool softener yesterday but has not had a bowel movement. She reports that she is also feeling like she cannot catch her breath, she has a history of COPD, she is requesting breathing treatments. She denies fevers, chills, chest pain, nausea, and vomiting. [facility] <ROBLES Sheets - Last Filed: 08/15/23 21:20> [facility] Medical History Walker as ambulation aid Ambulates with cane Low iron History of renal disease High cholesterol DVT (deep venous thrombosis) PONV (postoperative nausea and vomiting) Stroke/cerebrovascular accident Sleep apnea Fall Cardiology follow-up encounter Scalp hematoma Pulmonary embolism Post-menopausal Thyroid disease Injury of head and neck Dietary restriction Difficulty swallowing BiPAP (biphasic positive airway pressure) dependence COPD (chronic obstructive pulmonary disease) Shortness of breath on exertion Leg cramps History of pain when walking History of edema History of echocardiogram History of stress test Syncope Abnormal glucose Noncompliance DAVY treated with BiPAP UTI (urinary tract infection) Vitamin D deficiency Restless leg syndrome Vitamin B12 deficiency Iron deficiency anemia History of chronic back pain Wears glasses Arthritis Non-smoker Hydronephrosis Depression Anemia Migraine headache Chronic kidney disease Diabetes mellitus Gout Celiac disease Hyperlipidemia GERD (gastroesophageal reflux disease) Dyspnea on exertion Chest pain Hypersomnia Cardiac murmur Microcytic anemia Hypertension Morbid obesity with BMI of 40.0-44.9, adult Asthma Hypothyroidism Anxiety Home Medications ?Medication ?Instructions ?Recorded ?Last Taken ?Type citalopram 40 mg tablet 40 mg PO DAILY DEPRESSION/ANXIETY 07/27/19 07/27/23 History budesonide-formoterol HFA 160 2 puff inhalation BID COPD 04/02/20 07/27/23 History mcg-4.5 mcg/actuation aerosol inhaler (Symbicort) rimegepant 75 mg disintegrating 75 mg PO ONCE PRN MIGRAINES 06/19/20 05/04/22 History tablet (Nurtec ODT) lorazepam 1 mg tablet 1 mg PO BID PRN ANXIETY 05/04/22 02/08/23 History progesterone micronized 200 mg 400 mg PO QHS HORMONES 10/11/22 07/27/23 History capsule tramadol 50 mg tablet 50 mg PO TID PAIN 10/11/22 02/10/23 History amlodipine 10 mg tablet 10 mg PO DAILY BLOOD PRESSURE #90 10/28/22 07/27/23 Rx tabs valsartan 320 mg tablet 160 mg (1/2 x 320 mg) PO BID BLOOD 10/28/22 07/27/23 Rx PRESSURE #90 tabs albuterol sulfate 90 mcg/actuation 2 inh inhalation 4X/DAY PRN 11/07/22 07/27/23 Rx breath activated powder inhaler SHORTNESS OF BREATH #1 ea (ProAir RespiClick) metoclopramide HCl 10 mg tablet 10 mg PO Q6H PRN NAUSEA AND 01/07/23 Unknown Rx (Reglan) VOMTING #20 tabs atorvastatin 80 mg tablet 80 mg PO DAILY CHOLESTEROL 02/10/23 02/10/23 History cyclobenzaprine 5 mg tablet 5 mg PO Q8H PRN MUSCLE SPASMS 02/10/23 02/08/23 History potassium chloride 10 mEq 10 meq PO DAILY SUPPLEMENT #90 05/02/23 07/27/23 Rx capsule,extended release caps fluticasone fur. 100 mcg-umeclid 1 inh inhalation DAILY COPD 06/20/23 07/27/23 History 62.5 mcg-vilant 25 mcg inhalat.powder (Trelegy Ellipta) hydrocodone-acetaminophen 5-325mg 1 tab PO Q6H PRN pain 3 days #12 07/28/23 Unknown Rx 5mg-325mg tabs albuterol sulfate 90 mcg/actuation 2 puff inhalation Q4H PRN PRN 07/29/23 Unknown History aerosol inhaler shortness of breath or wheezing cephalexin 500 mg capsule 500 mg PO BID #14 caps 07/29/23 Unknown Rx gabapentin 300 mg capsule 300 mg PO TID 07/29/23 Unknown History galcanezumab-gnlm 120 mg/mL 120 mg subcut Q30D 07/29/23 Unknown History subcutaneous syringe (Emgality) isosorbide mononitrate 30 mg 30 mg PO DAILY 07/29/23 Unknown History tablet,extended release 24 hr levothyroxine 88 mcg tablet 88 mcg PO DAILY 07/29/23 Unknown History nystatin 100,000 unit/gram topical 1 applic topical TID 07/29/23 Unknown History powder polyethylene glycol 3350 17 17 g PO DAILY CONSTIPATION 07/29/23 Unknown History gram/dose oral powder trazodone 50 mg tablet 50 - 100 mg PO QHS insomnia 07/29/23 Unknown History magnesium citrate 300 ml PO X1 #1 BOTTLE 08/12/23 Unknown Rx polyethylene glycol 3350 17 17 g PO DAILY #119 grams 08/12/23 Unknown Rx gram/dose oral powder (Miralax) ciprofloxacin HCl 250 mg tablet 250 mg PO BID #13 tabs 08/15/23 Unknown Rx (Cipro) peg 3350-electrolytes 236 240 ml PO Q10M PRN #4,000 mL 08/15/23 Unknown Rx gram-22.74 gram-6.74 gram-5.86 gram solution (Golytely) Allergy/AdvReac Type Severity Reaction Status Date / Time hydrochlorothiazide AdvReac Intermediate Contributes Verified 08/15/23 15:58 to gout naproxen (From Naprosyn) AdvReac Intermediate Nausea Verified 08/15/23 15:58 aspirin AdvReac Nausea Verified 08/15/23 15:58 Family History Father , Age 72 Hypertension Mother CAD (coronary artery disease) Myocardial infarction, Onset Age: 55 Hypertension Sister CAD (coronary artery disease) Brother Cancer Surgical History History of cardiac catheterization History of History of carpal tunnel surgery of right wrist History of carpal tunnel surgery of left wrist Hx of cystoscopy History of left heart catheterization (11/11/20) history of uterine ablation Social History household members: none housing: apartment Smoking Status: Never smoker alcohol intake: never substance use type: does not use caffeine: No ROS <ROBLES Sheets - Last Filed: 08/15/23 21:20> ROS ED Constitutional Constitutional ED: Denies chills or fever(s) Cardiovascular Cardiovascular: Denies chest pain or palpitations Respiratory/Chest Respiratory/Chest: Reports dyspnea; Denies cough, tachypnea or wheezing Gastrointestinal Gastrointestinal: Reports abdominal pain and constipation; Denies nausea or vomiting Genitourinary Genitourinary ED: Denies dysuria or urinary urgency Musculoskeletal Musculoskeletal: Denies arthralgias or myalgias Integumentary Denies rash Neurologic Neurologic: Denies weakness EXAM <ROBLES Sheets - Last Filed: 08/15/23 21:20> Physical Exam Const Vital Signs: 08/15/23 15:58 08/15/23 16:25 08/15/23 17:00 Temperature 97.2 F L Temperature Source Temporal Pulse Rate 103 H 96 Respiratory Rate 18 14 Respiratory Effort Normal Non-Labored Respiratory Pattern Normal Blood Pressure 170/112 H Blood Pressure Mean 131 Pulse Ox 98 Oxygen Delivery Method Room Air 08/15/23 17:58 08/15/23 19:00 08/15/23 19:36 Temperature 97.9 F Temperature Source Pulse Rate 87 82 82 Respiratory Rate 18 18 16 Respiratory Effort Respiratory Pattern Blood Pressure 143/78 H 153/78 H 136/78 H Blood Pressure Mean 99 103 97 Pulse Ox 100 97 97 Oxygen Delivery Method Room Air Room Air Positive well nourished, well developed and no apparent distress General Appearance ED: well developed HEENT Reports normocephalic and head/scalp atraumatic Mouth ED: Yes moist mucous membranes normal Eyes PERRL and EOMs intact bilaterally Neck full ROM and supple Chest Wall inspection of chest normal Resp normal respiratory effort and clear to auscultation bilaterally Cardio regular rate and regular rhythm GI soft to palpation, non-tender, non-distended and no masses GI Narrative: Rectal: No fecal impaction, normal sphincter tone Back/Spine normal ROM and normal to inspection Extremity normal to inspection and full ROM Neuro oriented x3, CN's II-XII intact bilaterally, moves all extremities, no focal motor deficits and no sensory deficits noted Sensorium / Orientation: awake and alert Psych mental status grossly normal and thought process normal Skin no rashes or lesions noted and no wounds <Dr. Nicolás Nieves DO - Last Filed: 08/16/23 00:23> Physical Exam Const Vital Signs: 08/15/23 15:58 08/15/23 16:25 08/15/23 17:00 Temperature 97.2 F L Temperature Source Temporal Pulse Rate 103 H 96 Respiratory Rate 18 14 Respiratory Effort Normal Non-Labored Respiratory Pattern Normal Blood Pressure 170/112 H Blood Pressure Mean 131 Pulse Ox 98 Oxygen Delivery Method Room Air 08/15/23 17:58 08/15/23 19:00 08/15/23 19:36 Temperature 97.9 F Temperature Source Pulse Rate 87 82 82 Respiratory Rate 18 18 16 Respiratory Effort Respiratory Pattern Blood Pressure 143/78 H 153/78 H 136/78 H Blood Pressure Mean 99 103 97 Pulse Ox 100 97 97 Oxygen Delivery Method Room Air Room Air [facility] <ROBLES Sheets - Last Filed: 08/15/23 21:20> [facility] Narrative Medical decision making narrative: Presenting with fatigue, shortness of breath, abdominal pain, and constipation. She just had a workup performed 3 days ago due to abdominal pain including a CT scan of her abdomen and pelvis that showed constipation. She has only tried 1 dose of MiraLAX and 1 dose of another stool softener in the past 3 days to help with her constipation. Her abdomen is soft and nontender. She did request breathing treatments, these were given. She has a low Wells score, low suspicion for PE. Labs obtained, white blood cell count is elevated in comparison to previous visit at 15.1, she does have a UTI and was treated with Cipro as her last culture was sensitive to this. KUB does not show evidence of bowel obstruction. Chest x-ray negative for any acute findings. I will give her a prescription for GoLytely to help with her constipation. I have encouraged that she follow-up with her PCP given this is her 17th visit this year. She will be discharged home in stable condition. Lab Data Attestation: I reviewed the patient's lab results. Labs: Laboratory Results - last 24 hr 08/15/23 08/15/23 17:03 18:00 WBC 15.1 H RBC 3.74 L Hgb 10.0 L Hct 33.8 L MCV 90.4 MCH 26.7 L MCHC 29.6 L RDW Std Deviation 60.0 H RDW Coeff of Alfredo 18.1 H Plt Count 381 MPV 10.3 Immature Gran % (Auto) 1.000 H Neut % (Auto) 77.3 H Lymph % (Auto) 13.0 L [place] % (Auto) 8.4 Eos % (Auto) 0.0 Baso % (Auto) 0.3 Absolute Neuts (auto) 11.7 H Absolute Lymphs (auto) 1.96 Nucleated RBC % 0 Sodium 141 Potassium 4.4 Chloride 107 Carbon Dioxide 26.0 Anion Gap 8 BUN 19 H Creatinine 1.16 H Estim Creat Clear Calc 78.86 Est GFR (MDRD) Af Amer 63 Est GFR (MDRD) Non-Af 52 L BUN/Creatinine Ratio 16.4 Glucose 131 H Calcium 9.3 Troponin I High Sens 6 Urine Color Yellow Urine Clarity Clear Urine pH 6.0 Ur Specific [place] 1.015 Urine Protein 15 H Urine Glucose (UA) Normal Urine Ketones Negative Urine Occult Blood 10 H Urine Nitrite Positive H Urine Bilirubin Negative Urine Urobilinogen Normal Ur Leukocyte Esterase 100 H Urine RBC 0-5 SEEN Urine WBC 5-10 SEEN Ur Squamous Epith Cells 0 SEEN Urine Bacteria 2+ Urine Mucus 0 SEEN Radiography X-Ray: Read by ED Physician Diagnostic Testing: Clinical Impression(s) from Imaging Studies Chest X-Ray 08/15/23 17:55 IMPRESSION: Minor reticulonodular interstitial thickening of the right lower lobe possibly inflammatory.. Clinical correlation recommended Electronically Signed: Isaac Aviles MD at 18:15 EDT , KUB X-Ray 08/15/23 17:55 IMPRESSION: Diffuse fecal retention within the colon. Electronically Signed: Isaac Aviles MD at 18:13 EDT , EKG Initial EKG: Comments: 94 bpm, normal sinus rhythm, no ST elevation, interpreted by attending ED physician <Dr. Nicolás Nieves, DO - Last Filed: 08/16/23 00:23> [facility] Narrative Medical decision making narrative: Presenting with fatigue, shortness of breath, abdominal pain, and constipation. She just had a workup performed 3 days ago due to abdominal pain including a CT scan of her abdomen and pelvis that showed constipation. She has only tried 1 dose of MiraLAX and 1 dose of another stool softener in the past 3 days to help with her constipation. Her abdomen is soft and nontender. She did request breathing treatments, these were given. She has a low Wells score, low suspicion for PE. Labs obtained, white blood cell count is elevated in comparison to previous visit at 15.1, she does have a UTI and was treated with Cipro as her last culture was sensitive to this. KUB does not show evidence of bowel obstruction. Chest x-ray negative for any acute findings. I will give her a prescription for GoLytely to help with her constipation. I have encouraged that she follow-up with her PCP given this is her 17th visit this year. She will be discharged home in stable condition. I have personally performed a face to face assessment of the patient and have reviewed the LEIGH Note. I performed a substantive portion of the visit including all aspects of the following. My winslow findings include: History is 53-year-old female multiple medical problems presenting to the emergency room with continued abdominal pain. Seen here 3 days ago and a CT scan of her abdomen showed constipation and she states that she still has not had a bowel movement. Patient notes fatigue and some shortness of breath. Exam is afebrile vital signs are stable. Obese female laying very comfortably in the bed. Body habitus precludes a cough and abdominal exam. She does not appear septic on physical exam with good capillary refill and not tachycardic. Medical Decison Making white count 15.1 with a hemoglobin of 10. Urinalysis shows 5-10 white cells with 2+ bacteria and positive nitrates sent for culture. My independent interpretation the plain films of the chest x-ray is no acute process. My independent interpretation of the plain films of the abdominal x-rays is no obstruction but large fecal burden. Patient be treated with antibiotics and GoLytely for which I would recommend she drink over the course of 2 to 3 days slowly so that she may not need a full prep. Patient is to expect abdominal cramping. History & Record Review Discussion w/independent historian: Patient Lab Data Labs: Laboratory Results - last 24 hr 08/15/23 08/15/23 17:03 18:00 WBC 15.1 H RBC 3.74 L Hgb 10.0 L Hct 33.8 L MCV 90.4 MCH 26.7 L MCHC 29.6 L RDW Std Deviation 60.0 H RDW Coeff of Alfredo 18.1 H Plt Count 381 MPV 10.3 Immature Gran % (Auto) 1.000 H Neut % (Auto) 77.3 H Lymph % (Auto) 13.0 L [place] % (Auto) 8.4 Eos % (Auto) 0.0 Baso % (Auto) 0.3 Absolute Neuts (auto) 11.7 H Absolute Lymphs (auto) 1.96 Nucleated RBC % 0 Sodium 141 Potassium 4.4 Chloride 107 Carbon Dioxide 26.0 Anion Gap 8 BUN 19 H Creatinine 1.16 H Estim Creat Clear Calc 78.86 Est GFR (MDRD) Af Amer 63 Est GFR (MDRD) Non-Af 52 L BUN/Creatinine Ratio 16.4 Glucose 131 H Calcium 9.3 Troponin I High Sens 6 Urine Color Yellow Urine Clarity Clear Urine pH 6.0 Ur Specific [place] 1.015 Urine Protein 15 H Urine Glucose (UA) Normal Urine Ketones Negative Urine Occult Blood 10 H Urine Nitrite Positive H Urine Bilirubin Negative Urine Urobilinogen Normal Ur Leukocyte Esterase 100 H Urine RBC 0-5 SEEN Urine WBC 5-10 SEEN Ur Squamous Epith Cells 0 SEEN Urine Bacteria 2+ Urine Mucus 0 SEEN Radiography Diagnostic Testing: Clinical Impression(s) from Imaging Studies Chest X-Ray 08/15/23 17:55 IMPRESSION: Minor reticulonodular interstitial thickening of the right lower lobe possibly inflammatory.. Clinical correlation recommended Electronically Signed: Isaac Aviles MD at 18:15 EDT , KUB X-Ray 08/15/23 17:55 IMPRESSION: Diffuse fecal retention within the colon. Electronically Signed: Isaac Aviles MD at 18:13 EDT , Discharge Plan Triage Chief Complaint: General Illness ED Midlevel Provider: Nafisa Valadez ED Provider: Nicolás Nieves Dx/Rx/DC Orders Clinical Impression: COPD (chronic obstructive pulmonary disease), Shortness of breath, Fatigue, UTI (urinary tract infection), Abdominal pain, Constipation Instructions: Urinary Tract Infections in Women, ED Constipation (Adult) Prescriptions: New ciprofloxacin HCl [Cipro] 250 mg tablet 250 mg PO BID Qty: 13 0RF peg 3350-electrolytes [Golytely] 236-22.74-6.74 -5.86 gram recon soln 240 ml PO Q10M PRN Qty: 4000 0RF Rx Instructions: until large bowel movement No Action budesonide-formoterol [Symbicort] 160-4.5 mcg/actuation HFA aerosol inhaler 2 puff INHALATION BID Nurtec ODT 75 mg tablet,disintegrating 75 mg PO ONCE PRN (Reason: MIGRAINES ) Trelegy Ellipta 100-62.5-25 mcg blister with device 1 inh INHALATION DAILY lorazepam 1 mg tablet 1 mg PO BID PRN (Reason: ANXIETY ) tramadol 50 mg tablet 50 mg PO TID progesterone micronized 200 mg capsule 400 mg PO QHS ProAir RespiClick 90 mcg/actuation aerosol powdr breath activated 2 inh INHALATION 4X/DAY PRN (Reason: SHORTNESS OF BREATH ) Qty: 1 0RF cyclobenzaprine 5 mg tablet 5 mg PO Q8H PRN (Reason: MUSCLE SPASMS ) atorvastatin 80 mg Tablet 80 mg PO DAILY metoclopramide HCl [Reglan] 10 mg tablet 10 mg PO Q6H PRN (Reason: NAUSEA AND VOMTING ) Qty: 20 0RF hydrocodone-acetaminophen 5-325 mg tablet 1 tab PO Q6H PRN (Reason: pain) 3 Days Qty: 12 0RF polyethylene glycol 3350 [Miralax] 17 gram/dose powder 17 g PO DAILY Qty: 119 0RF magnesium citrate Solution 300 ml PO X1 Qty: 1 0RF albuterol sulfate 90 mcg/actuation HFA aerosol inhaler 2 puff inhalation Q4H PRN PRN (Reason: shortness of breath or wheezing) gabapentin 300 mg capsule 300 mg PO TID Emgality Syringe 120 mg/mL syringe 120 mg subcut Q30D isosorbide mononitrate 30 mg tablet extended release 24 hr 30 mg PO DAILY levothyroxine 88 mcg tablet 88 mcg PO DAILY nystatin 100,000 unit/gram powder 1 applic topical TID polyethylene glycol 3350 17 gram/dose powder 17 g PO DAILY trazodone 50 mg tablet 50 - 100 mg PO QHS cephalexin 500 mg capsule 500 mg PO BID Qty: 14 0RF citalopram 40 mg tablet 40 mg PO DAILY amlodipine 10 mg tablet 10 mg PO DAILY Qty: 90 3RF valsartan 320 mg tablet 160 mg PO BID Qty: 90 3RF potassium chloride 10 mEq capsule, extended release 10 meq PO DAILY Qty: 90 3RF Primary Care Provider: Nasreen Sutton Referrals: Nasreen Sutton MD [Primary Care Provider] - 5-7 Days Activity Restrictions/Additional Instructions: Follow-up with your PCP. Print Language: French Disposition Disposition: Home, Self Care Discharge Date/Time: 08/15/23 19:37
--- NOTE | 2023-08-15 16:35 | EKG12_ITS ---
Test Reason : GEN ILLNESS Blood Pressure : / mmHG Vent. Rate : 094 BPM Atrial Rate : 094 BPM P-R Int : 156 ms QRS Dur : 092 ms QT Int : 320 ms P-R-T Axes : 043 009 113 degrees QTc Int : 400 ms Normal sinus rhythm Nonspecific T wave abnormality Abnormal ECG Confirmed by MIGUEL GONZALEZ, MAGALI ([id number]), video editor ZANDER MAYER ([id number]) on 08/16/2023 11:27:46 AM Referred By: Confirmed By:MAGALI RIVERA MD
[2023-08-15 17:00] VITALS: PULSE 96; RESP 14
[2023-08-15] MEDS: Ipratropium/Albuterol Sulfate 3 ML AMPUL.NEB INHALATION (17:00)
[2023-08-15] MEDS: Albuterol 2.5 MG/3 ML VIAL.NEB. INHALATION (17:00)
[2023-08-15 17:32] LABS: Absolute Lymphocyte Count 1.96 X10^3/uL (0.83-4.51); Absolute Neutrophil Count 11.7 X10^3/uL (2.0-7.7); Basophil# 0.05 X10^3/uL; Basophil% 0.3 % (0-1); Hematocrit 33.8 % (37-47); Lymphocyte # 1.96 X10^3/ul (0.83-4.51); Mean Corp Hgb Conc 29.6 g/dL (32-36); Mean Corpuscular Hgb 26.7 pg (27.0-32.0); Mean Corpuscular Volume 90.4 fL (81-99); Mean Platelet Vol. 10.3 fl (6.2-12.0); Monocyte# 1.27 X10^3/uL; Monocyte% 8.4 % (0-10); NRBC Flagged by Analyzer 0 % (0-5); Neutrophil # 11.65 X10^3/uL (2.7-7.7); Neutrophil % 77.3 % (47-70); Platelet Count 381 K/mm3 (150-450); RBC Distribution Width CV 18.1 % (11.6-14.6); Red Blood Count 3.74 M/mm3 (4.2-5.4); White Blood Count 15.1 K/mm3 (4.4-11.0)
--- NOTE | 2023-08-15 17:55 | RAD_ITS ---
STUDY: X-RAY - ABDOMEN/PELVIS REASON FOR EXAM: Female, 53 years old. adominal pain, constipation TECHNIQUE: COMPARISON: None. FINDINGS: Normal visualized lung bases. There is diffuse fecal retention seen throughout the colon. There is no demonstrated free abdominal air. The visualized liver, spleen and kidneys are grossly normal in size and morphology. Normal soft tissue structures. Normal visualized osseous structures. RAD/Abdomen Single View (Portable) IMPRESSION: Diffuse fecal retention within the colon. Electronically Signed: Isaac Aviles MD at 18:13 EDT ,
--- NOTE | 2023-08-15 17:55 | RAD_ITS ---
STUDY: X-RAY CHEST REASON FOR EXAM: Female, 53 years old. shortness of breath TECHNIQUE: PA COMPARISON: None. FINDINGS: Minor reticulonodular interstitial thickening at the right lung base. There is no demonstrated pleural abnormality. Borderline cardiomegaly.. Normal mediastinum and kumar. Normal visualized pulmonary arteries. Normal visualized aortic arch and descending thoracic aorta. Normal visualized thoracic spine. Normal visualized ribs, clavicles, and shoulders. There is no demonstrated abnormality of the visualized soft tissue structures of the upper abdomen. RAD/Chest 1 View (Portable) IMPRESSION: Minor reticulonodular interstitial thickening of the right lower lobe possibly inflammatory.. Clinical correlation recommended Electronically Signed: Isaac Aviles MD at 18:15 EDT ,
[2023-08-15 17:58] VITALS: BP 143/78; PULSE 87; RESP 18; O2SAT 100
[2023-08-15 18:11] LABS: Mucous, Urine 0 SEEN /hpf (<or=2+); Squamous Epithelial Cells - UA 0 SEEN /hpf (5-10)
[2023-08-15 18:15] LABS: Color, Urine Yellow (Yellow); Glucose, Dipstick Normal (Normal); Ketone-Dipstick Negative (Negative); Leukocyte Esterase-Dipstick 100 /ul (Negative); Nitrite-Dipstick Positive (Negative); Occult Blood-Urine 10 /ul (Negative); Protein-Dipstick 15 mg/dl (Negative); Specific Gravity, Urine 1.015 (1.002-1.030); Urine Bilirubin Dipstick Negative (Negative); Urine Clarity Clear (Clear); Urine Urobilinogen Normal (Normal)
[2023-08-15 18:18] LABS: Anion Gap 8 (5-15); BUN 19 mg/dL (7-18); BUN/Creat Ratio 16.4 RATIO (10-20); Calcium,Total 9.3 mg/dL (8.5-10.1); Chloride 107 mmol/L (98-107); Creatinine, Serum 1.16 mg/dL (0.55-1.02); EST Glomerular Filtration Rate 52 mL/min (>60); Est Glom Filt Rate - Afr Amer 63 mL/min (>60); Estimated Creatinine Clearance 78.86 ml/min; Glucose 131 mg/dL (74-106); Potassium 4.4 mmol/L (3.5-5.1); Sodium Level 141 mmol/L (136-145); Troponin-I HS 6 pg/mL (3.0-54.0)
[2023-08-15 18:52] LABS: Bacteria 2+ /hpf (None Seen); Red Blood Cells-Urine 0-5 SEEN /hpf (0-5); White Blood Cells 5-10 SEEN /hpf (0-5)
[2023-08-15 19:00] VITALS: BP 153/78; PULSE 82; RESP 18; O2SAT 97
[2023-08-15] MEDS: Ciprofloxacin 250 MG Tablet PO (19:35)
[2023-08-15 19:36] VITALS: BP 136/78; PULSE 82; RESP 16; TEMP 36.6; O2SAT 97
== END 2023-08-15 19:37 | disposition home or self-care (01) ==
PROVIDERS: Physician Assistant; Emergency Provider Emergency Medicine; PCP Family Medicine; Visit Provider Emergency Medicine
DX: J44.9 Chronic obstructive pulmonary disease, unspecified (principal); E11.9 Type 2 diabetes mellitus without complications; R06.02 Shortness of breath; R53.83 Other fatigue; N39.0 Urinary tract infection, site not specified; K59.00 Constipation, unspecified; F32.A Depression, unspecified; G47.33 Obstructive sleep apnea (adult) (pediatric); Z86.718 Personal history of other venous thrombosis and embolism; Z86.73 Personal history of transient ischemic attack (TIA), and cerebral infarction without residual deficits
CPT/HCPCS: 36415; 71045; 74018; 80048; 81001; 84439; 84443; 84484; 85025; 87077; 87086; 87088; 87186; 93005; 94640; 99283; A4216

== ENCOUNTER → 2023-08-15 | Outpatient (CLI) | payer MEDICARE, MEDICAID, SELFPAY ==
[2023-08-15 13:41] LABS: Free T4 0.89 ng/dL (0.76-1.46)
== END | disposition home or self-care (01) ==
PROVIDERS: PCP Family Medicine; Referring Provider Family Medicine; Visit Provider Family Medicine
DX: F32.A Depression, unspecified (principal)
CPT/HCPCS: 36415; 84439; 84443

== ENCOUNTER → 2023-08-18 | Outpatient (CLI) | payer MEDICARE, MEDICAID, SELFPAY ==
[2023-08-18 12:30] LABS: Base Excess -1 mmol/L (-2 to +2); Bicarbonate 23.9 mmol/L (22-26); Blood Gas Specimen Type ART; Mode Not entered; O2 Delivery Device Not entered; PO2 78 mmHG (75-100); SITE R Brach; SO2 95 % (95-99); Total Carbon Dioxide 25 mmol/L; pCO2 38.6 mmHg (35-45)
== END | disposition home or self-care (01) ==
LOC: PSN 11:49
PROVIDERS: PCP Family Medicine; Referring Provider Internal Medicine Pulmonary Disease; Visit Provider Internal Medicine Pulmonary Disease
DX: J45.20 Mild intermittent asthma, uncomplicated (principal); R06.02 Shortness of breath
CPT/HCPCS: 36600; 82803

== ENCOUNTER 2023-08-19 15:09 | Emergency (ER) | payer MEDICARE, MEDICAID, SELFPAY ==
[2023-08-19 15:10] VITALS: BP 185/113; PULSE 978; RESP 17; TEMP 36.4; O2SAT 98; BMI 51.4
[2023-08-19 15:16] VITALS: O2SAT 96
[2023-08-19 15:20] VITALS: PULSE 95; RESP 16
--- NOTE | 2023-08-19 15:20 | ED.VIS.DYS ---
HPI History of Present Illness Chief Complaint: Shortness of Breath Narrative Narrative: History of asthma COPD, denies tobacco or home oxygen. 3-day history increasing nonproductive cough wheezing at home and increase inhaler use up to 4 times a day per patient. She uses this morning. Denies diabetes history. She is followed by pulmonology Dr. Bowden. She is not a diabetic. Presenting in triage stating the nurse she just wants a breathing treatment and no testing. She denies headache fevers chest pains abdominal pain. Denies nausea or vomiting. PE Risk Factors: Negative for Prior DVT or PE Prior similar symptoms: Yes [facility] Medical History Walker as ambulation aid Ambulates with cane Low iron History of renal disease High cholesterol DVT (deep venous thrombosis) PONV (postoperative nausea and vomiting) Stroke/cerebrovascular accident Sleep apnea [facility]iology follow-up encounter Scalp hematoma Pulmonary embolism Post-menopausal Thyroid disease Injury of head and neck Dietary restriction Difficulty swallowing BiPAP (biphasic positive airway pressure) dependence COPD (chronic obstructive pulmonary disease) Shortness of breath on exertion Leg cramps History of pain when walking History of edema History of echocardiogram History of stress test Syncope Abnormal glucose Noncompliance DAVY treated with BiPAP UTI (urinary tract infection) Vitamin D deficiency Restless leg syndrome Vitamin B12 deficiency Iron deficiency anemia History of chronic back pain Wears glasses Arthritis Non-smoker Hydronephrosis Depression Anemia Migraine headache Chronic kidney disease Diabetes mellitus Gout Celiac disease Hyperlipidemia GERD (gastroesophageal reflux disease) Dyspnea on exertion Chest pain Hypersomnia Cardiac murmur Microcytic anemia Hypertension Morbid obesity with BMI of 40.0-44.9, adult Asthma Hypothyroidism Anxiety Home Medications ?Medication ?Instructions ?Recorded ?Last Taken ?Type citalopram 40 mg tablet 40 mg PO DAILY DEPRESSION/ANXIETY 07/27/19 07/27/23 History budesonide-formoterol HFA 160 2 puff inhalation BID COPD 04/02/20 07/27/23 History mcg-4.5 mcg/actuation aerosol inhaler (Symbicort) rimegepant 75 mg disintegrating 75 mg PO ONCE PRN MIGRAINES 06/19/20 05/04/22 History tablet (Nurtec ODT) lorazepam 1 mg tablet 1 mg PO BID PRN ANXIETY 05/04/22 02/08/23 History progesterone micronized 200 mg 400 mg PO QHS HORMONES 08/14/23 05/29/24 History capsule tramadol 50 mg tablet 50 mg PO TID PAIN 10/11/22 02/10/23 History amlodipine 10 mg tablet 10 mg PO DAILY BLOOD PRESSURE #90 10/28/22 07/27/23 Rx tabs valsartan 320 mg tablet 160 mg (1/2 x 320 mg) PO BID BLOOD 10/28/22 07/27/23 Rx PRESSURE #90 tabs albuterol sulfate 90 mcg/actuation 2 inh inhalation 4X/DAY PRN 11/07/22 07/27/23 Rx breath activated powder inhaler SHORTNESS OF BREATH #1 ea (ProAir RespiClick) metoclopramide HCl 10 mg tablet 10 mg PO Q6H PRN NAUSEA AND 01/07/23 Unknown Rx (Reglan) VOMTING #20 tabs atorvastatin 80 mg tablet 80 mg PO DAILY CHOLESTEROL 02/10/23 02/10/23 History cyclobenzaprine 5 mg tablet 5 mg PO Q8H PRN MUSCLE SPASMS 02/10/23 02/08/23 History potassium chloride 10 mEq 10 meq PO DAILY SUPPLEMENT #90 05/02/23 07/27/23 Rx capsule,extended release caps fluticasone fur. 100 mcg-umeclid 1 inh inhalation DAILY COPD 06/20/23 07/27/23 History 62.5 mcg-vilant 25 mcg inhalat.powder (Trelegy Ellipta) hydrocodone-acetaminophen 5-325mg 1 tab PO Q6H PRN pain 3 days #12 07/28/23 Unknown Rx 5mg-325mg tabs albuterol sulfate 90 mcg/actuation 2 puff inhalation Q4H PRN PRN 07/29/23 Unknown History aerosol inhaler shortness of breath or wheezing cephalexin 500 mg capsule 500 mg PO BID #14 caps 07/29/23 Unknown Rx gabapentin 300 mg capsule 300 mg PO TID 07/29/23 Unknown History galcanezumab-gnlm 120 mg/mL 120 mg subcut Q30D 07/29/23 Unknown History subcutaneous syringe (Emgality) isosorbide mononitrate 30 mg 30 mg PO DAILY 07/29/23 Unknown History tablet,extended release 24 hr levothyroxine 88 mcg tablet 88 mcg PO DAILY 07/29/23 Unknown History nystatin 100,000 unit/gram topical 1 applic topical TID 07/29/23 Unknown History powder polyethylene glycol 3350 17 17 g PO DAILY CONSTIPATION 07/29/23 Unknown History gram/dose oral powder trazodone 50 mg tablet 50 - 100 mg PO QHS insomnia 07/29/23 Unknown History magnesium citrate 300 ml PO X1 #1 BOTTLE 08/12/23 Unknown Rx polyethylene glycol 3350 17 17 g PO DAILY #119 grams 08/12/23 Unknown Rx gram/dose oral powder (Miralax) ciprofloxacin HCl 250 mg tablet 250 mg PO BID #13 tabs 08/15/23 Unknown Rx (Cipro) peg 3350-electrolytes 236 240 ml PO Q10M PRN #4,000 mL 08/15/23 Unknown Rx gram-22.74 gram-6.74 gram-5.86 gram solution (Golytely) prednisone 20 mg tablet 60 mg (3 x 20 mg) PO DAILY #12 08/19/23 Unknown Rx TABLETS Allergy/AdvReac Type Severity Reaction Status Date / Time hydrochlorothiazide AdvReac Intermediate Contributes Verified 08/19/23 15:13 to gout naproxen (From Naprosyn) AdvReac Intermediate Nausea Verified 08/19/23 15:13 aspirin AdvReac Nausea Verified 08/19/23 15:13 Family History Father , Age 72 Hypertension Mother CAD (coronary artery disease) Myocardial infarction, Onset Age: 55 Hypertension Sister CAD (coronary artery disease) Brother Cancer Surgical History History of cardiac catheterization History of History of carpal tunnel surgery of right wrist History of carpal tunnel surgery of left wrist Hx of cystoscopy History of left heart catheterization (11/11/20) history of uterine ablation Social History household members: none housing: apartment Smoking Status: Never smoker alcohol intake: never substance use type: does not use caffeine: No ROS ROS ED Constitutional Constitutional ED: Denies chills, fever(s) or sweats Eyes Eyes: Denies change in vision ENT ENT ED: Denies dysphagia or sore throat Cardiovascular Cardiovascular: Denies chest pain, leg edema, palpitations or racing heartbeat Respiratory/Chest Respiratory/Chest: Reports cough and dyspnea; Denies dyspnea on exertion Gastrointestinal Gastrointestinal: Denies abdominal pain, diarrhea, nausea or vomiting Genitourinary Genitourinary ED: Denies dysuria, hematuria or urinary frequency Musculoskeletal Musculoskeletal: Denies back pain, extremity pain or neck pain Integumentary Denies rash or wounds Neurologic Neurologic: Denies headache(s), paresthesias or weakness EXAM Physical Exam Const Vital Signs: 08/19/23 15:10 08/19/23 15:16 08/19/23 15:20 Temperature 97.5 F L Temperature Source Temporal Pulse Rate 978 H 95 Respiratory Rate 17 16 Respiratory Effort Normal Respiratory Depth Normal Respiratory Pattern Normal Blood Pressure 185/113 H Blood Pressure Mean 137 Pulse Ox 98 Oxygen Delivery Method Room Air Room Air 08/19/23 15:27 08/19/23 15:27 Temperature Temperature Source Pulse Rate 82 Respiratory Rate 16 Respiratory Effort Respiratory Depth Respiratory Pattern Blood Pressure Blood Pressure Mean Pulse Ox 94 Oxygen Delivery Method Room Air Positive well nourished and well developed General Appearance ED: well developed and NAD HEENT Reports moist mucous membranes normocephalic and atraumatic Eyes EOMs intact bilaterally and conjunctivae normal General Eye ED: Yes normal appearance of both eyes Neck no lymphadenopathy and supple General: Negative for tenderness Chest Wall Chest: Negative for tenderness Resp normal respiratory effort Resp Narrative: Diminished at bases Effort and Inspection: symmetric chest movement; Negative for respiratory distress Cardio regular rate, regular rhythm and no murmurs Peripheral Pulses: pulses 2+ throughout GI normal to inspection, nondistended, normoactive bowel sounds and non-tender Palpation: Negative for guarding or rebound tenderness present Back/Spine no CVA tenderness and no thoracic nor lumbar tenderness Extremity normal to inspection General Extremety ED: Negative for edema or tenderness General Extremity: Negative for edema Neuro oriented x3 and no sensory deficits noted Sensorium / Orientation: awake and alert Skin no rashes or lesions noted and no wounds MDM MDM MDM Narrative Medical decision making narrative: Interventions / MDM: Differential diagnosis: Asthma, history of COPD Diagnosis considered but do not suspect: Pulmonary embolism, no tachypnea or hypoxia or tachycardia. Dry cough with wheezing more consistent with asthma. My EKG interpretation: N/A Imaging independently reviewed and interpreted by myself: N/A External documents reviewed: N/A Test considered but not ordered:N/A ED course: Vital signs stable nontoxic no respiratory distress. 98% on room air.No active wheezing however status post aerosol treatments. Diminished breath sounds at the bases. Patient requesting aerosol treatments to be ordered. With her reported wheezing worse in the last 3 days concerns for exacerbation. Therefore prednisone will be started. She is not a diabetic. She declines testing in the emergency department. 1600: Reports improvement with DuoNeb treatment mild nausea from the prednisone. Discussed with patient to take with foods at home. Pulse ox stable in the ED. No productive sputum, no indication for antibiotics. Will continue steroids for asthma exacerbation. Return precautions. All questions were answered. Re-evaluation: stable Disposition discussed with patient/family/significant other: Patient Case discussed with consulting clinician: N/A This note was generated with [employer] dictation software. It may contain incorrect words, spelling, and punctuation that were not noted in checking the note before signing. Discharge Plan Triage Chief Complaint: Shortness of Breath ED Provider: Gm Martinez Dx/Rx/DC Orders Clinical Impression: Asthma exacerbation in COPD, Cough Instructions: Asthma Prescriptions: New prednisone 20 mg tablet 60 mg PO DAILY Qty: 12 0RF No Action budesonide-formoterol [Symbicort] 160-4.5 mcg/actuation HFA aerosol inhaler 2 puff INHALATION BID Nurtec ODT 75 mg tablet,disintegrating 75 mg PO ONCE PRN (Reason: MIGRAINES ) Trelegy Ellipta 100-62.5-25 mcg blister with device 1 inh INHALATION DAILY lorazepam 1 mg tablet 1 mg PO BID PRN (Reason: ANXIETY ) tramadol 50 mg tablet 50 mg PO TID progesterone micronized 200 mg capsule 400 mg PO QHS ProAir RespiClick 90 mcg/actuation aerosol powdr breath activated 2 inh INHALATION 4X/DAY PRN (Reason: SHORTNESS OF BREATH ) Qty: 1 0RF cyclobenzaprine 5 mg tablet 5 mg PO Q8H PRN (Reason: MUSCLE SPASMS ) atorvastatin 80 mg Tablet 80 mg PO DAILY metoclopramide HCl [Reglan] 10 mg tablet 10 mg PO Q6H PRN (Reason: NAUSEA AND VOMTING ) Qty: 20 0RF hydrocodone-acetaminophen 5-325 mg tablet 1 tab PO Q6H PRN (Reason: pain) 3 Days Qty: 12 0RF polyethylene glycol 3350 [Miralax] 17 gram/dose powder 17 g PO DAILY Qty: 119 0RF magnesium citrate Solution 300 ml PO X1 Qty: 1 0RF albuterol sulfate 90 mcg/actuation HFA aerosol inhaler 2 puff inhalation Q4H PRN PRN (Reason: shortness of breath or wheezing) gabapentin 300 mg capsule 300 mg PO TID Emgality Syringe 120 mg/mL syringe 120 mg subcut Q30D isosorbide mononitrate 30 mg tablet extended release 24 hr 30 mg PO DAILY levothyroxine 88 mcg tablet 88 mcg PO DAILY nystatin 100,000 unit/gram powder 1 applic topical TID polyethylene glycol 3350 17 gram/dose powder 17 g PO DAILY trazodone 50 mg tablet 50 - 100 mg PO QHS cephalexin 500 mg capsule 500 mg PO BID Qty: 14 0RF ciprofloxacin HCl [Cipro] 250 mg tablet 250 mg PO BID Qty: 13 0RF peg 3350-electrolytes [Golytely] 236-22.74-6.74 -5.86 gram recon soln 240 ml PO Q10M PRN Qty: 4000 0RF Rx Instructions: until large bowel movement citalopram 40 mg tablet 40 mg PO DAILY amlodipine 10 mg tablet 10 mg PO DAILY Qty: 90 3RF valsartan 320 mg tablet 160 mg PO BID Qty: 90 3RF potassium chloride 10 mEq capsule, extended release 10 meq PO DAILY Qty: 90 3RF Primary Care Provider: Nasreen Sutton Referrals: Nasreen Sutton MD [Primary Care Provider] - Kiran Bowden MD [Med Staff - Active Staff] - 3-5 Days Print Language: Greenlandic Disposition Disposition: Home, Self Care
[2023-08-19] MEDS: Ipratropium/Albuterol Sulfate 3 ML AMPUL.NEB INHALATION (15:26)
[2023-08-19 15:27] VITALS: PULSE 82; RESP 16; O2SAT 94
[2023-08-19] MEDS: predniSONE 20 MG Tablet 60 MG PO (15:48)
[2023-08-19 16:14] VITALS: BP 178/99; PULSE 81; RESP 14; TEMP 36.6; O2SAT 95
== END 2023-08-19 16:15 | disposition home or self-care (01) ==
LOC: ED 16:10
PROVIDERS: Emergency Provider Emergency Medicine; PCP Family Medicine; Visit Provider Emergency Medicine
DX: J44.1 Chronic obstructive pulmonary disease with (acute) exacerbation (principal); E11.22 Type 2 diabetes mellitus with diabetic chronic kidney disease; R05.9 Cough, unspecified; E78.00 Pure hypercholesterolemia, unspecified; Z86.73 Personal history of transient ischemic attack (TIA), and cerebral infarction without residual deficits; G47.33 Obstructive sleep apnea (adult) (pediatric); Z99.81 Dependence on supplemental oxygen; I12.9 Hypertensive chronic kidney disease with stage 1 through stage 4 chronic kidney disease, or unspecified chronic kidney disease; N18.9 Chronic kidney disease, unspecified; F41.9 Anxiety disorder, unspecified; F32.A Depression, unspecified; G43.909 Migraine, unspecified, not intractable, without status migrainosus; Z79.51 Long term (current) use of inhaled steroids; E03.9 Hypothyroidism, unspecified
CPT/HCPCS: 94640; 99283

== ENCOUNTER 2023-08-21 12:57 | Emergency (ER) | payer MEDICARE, MEDICAID, SELFPAY ==
[2023-08-21 12:58] VITALS: BP 176/89; PULSE 86; RESP 15; TEMP 36.7; O2SAT 98
--- NOTE | 2023-08-21 14:57 | ED.RN ---
PT IS SITTING IN THE WAITING ROOM WITH NO SIGNS OF DISTRESS OR SOB. PULSE OX IS 98 ON RA. PT IS TALKING IN COMPLETE SENTENCES
--- NOTE | 2023-08-21 15:54 | ED.RN ---
PT STATES SHE JUST WANTED A BREATHING TX AND WILL COME BACK LATER. EXPLAINED HER PULSE OX WAS GOOD AND NEEDS TO F/U WITH PCP
== END 2023-08-21 15:57 | disposition left against medical advice (07) ==
LOC: ED 15:57
PROVIDERS: PCP Family Medicine
DX: Z00.00 Encounter for general adult medical examination without abnormal findings (principal)

== ENCOUNTER 2023-08-23 08:44 | Emergency (ER) | payer MEDICARE, MEDICAID, SELFPAY ==
[2023-08-23 08:44] VITALS: BP 146/105; PULSE 77; RESP 14; TEMP 36.1; O2SAT 100
--- NOTE | 2023-08-23 09:28 | RAD_ITS ---
STUDY: X-RAY CHEST REASON FOR EXAM: Female, 53 years old. Chest pain TECHNIQUE: Single AP portable view of the chest. COMPARISON: Comparison is made with prior study dated August 15, 2023. FINDINGS: EKG electrodes are seen. Limited inspiratory effort. Mild degree of vascular congestion. There is no demonstrated pleural abnormality. There is moderate cardiac enlargement. Normal mediastinum and kumar. Normal visualized pulmonary arteries. Normal visualized aortic arch and descending thoracic aorta. Normal visualized thoracic spine. Normal visualized ribs, clavicles, and shoulders. There is no demonstrated abnormality of the visualized soft tissue structures of the upper abdomen. RAD/Chest 1 View (Portable) IMPRESSION: Limited inspiratory effort with mild vascular congestion. Cardiomegaly. Electronically Signed: Seun Vieira MD at 10:43 EDT ,
--- NOTE | 2023-08-23 09:28 | EKG12_ITS ---
Test Reason : CONFUSION/DIZZY Blood Pressure : / mmHG Vent. Rate : 073 BPM Atrial Rate : 073 BPM P-R Int : 140 ms QRS Dur : 080 ms QT Int : 422 ms P-R-T Axes : 035 -06 183 degrees QTc Int : 464 ms Normal sinus rhythm T wave abnormality, consider inferolateral ischemia vs LVH Abnormal ECG Confirmed by Wes Medeiros ([id number]), associate editor ZANDER MAYER ([id number]) on 08/24/2023 11:40:00 AM Referred By: Confirmed By:Wes Medeiros
--- NOTE | 2023-08-23 09:29 | EX.ED.DYSGE1 ---
HPI History of Present Illness Chief Complaint: Confusion Narrative Narrative: Patient presenting with generalized weakness and feeling lightheaded. This is an ongoing issue. Apparently he saw her primary care yesterday who put her on a beta-skylar for anxiety. She states today she feels lightheaded. Denies headache. She is not describing as vertiginous.. She states that she is having trouble walking because she is so weak. Was seen at [facility] yesterday for similar complaint and had a workup which was normal. She lives at home alone. She states she does not want to be admitted to an assisted living or long-term.. [facility] Medical History Walker as ambulation aid Ambulates with cane Low iron History of renal disease High cholesterol DVT (deep venous thrombosis) PONV (postoperative nausea and vomiting) Stroke/cerebrovascular accident Sleep apnea Fall [facility]iology follow-up encounter Scalp hematoma Pulmonary embolism Post-menopausal Thyroid disease Injury of head and neck Dietary restriction Difficulty swallowing BiPAP (biphasic positive airway pressure) dependence COPD (chronic obstructive pulmonary disease) Shortness of breath on exertion Leg cramps History of pain when walking History of edema History of echocardiogram History of stress test Syncope Abnormal glucose Noncompliance DAVY treated with BiPAP UTI (urinary tract infection) Vitamin D deficiency Restless leg syndrome Vitamin B12 deficiency Iron deficiency anemia History of chronic back pain Wears glasses Arthritis Non-smoker Hydronephrosis Depression Anemia Migraine headache Chronic kidney disease Diabetes mellitus Gout Celiac disease Hyperlipidemia GERD (gastroesophageal reflux disease) Dyspnea on exertion Chest pain Hypersomnia Cardiac murmur Microcytic anemia Hypertension Morbid obesity with BMI of 40.0-44.9, adult Asthma Hypothyroidism Anxiety Home Medications ?Medication ?Instructions ?Recorded ?Last Taken ?Type citalopram 40 mg tablet 40 mg PO DAILY DEPRESSION/ANXIETY 07/27/19 08/22/23 History budesonide-formoterol HFA 160 2 puff inhalation BID COPD 04/02/20 08/22/23 History mcg-4.5 mcg/actuation aerosol inhaler (Symbicort) lorazepam 1 mg tablet 1 mg PO TID PRN ANXIETY 05/04/22 02/08/23 History progesterone micronized 200 mg 400 mg PO QHS HORMONES 10/11/22 08/22/23 History capsule amlodipine 10 mg tablet 10 mg PO DAILY BLOOD PRESSURE #90 10/28/22 08/22/23 Rx tabs valsartan 320 mg tablet 160 mg (1/2 x 320 mg) PO BID BLOOD 10/28/22 07/27/23 Rx PRESSURE #90 tabs metoclopramide HCl 10 mg tablet 10 mg PO Q6H PRN NAUSEA AND 01/07/23 Unknown Rx (Reglan) VOMTING #20 tabs atorvastatin 80 mg tablet 80 mg PO DAILY CHOLESTEROL 02/10/23 08/22/23 History cyclobenzaprine 5 mg tablet 5 mg PO Q8H MUSCLE SPASMS 02/10/23 08/22/23 History potassium chloride 10 mEq 10 meq PO DAILY SUPPLEMENT #90 05/02/23 08/22/23 Rx capsule,extended release caps fluticasone fur. 100 mcg-umeclid 1 inh inhalation DAILY COPD 06/20/23 08/22/23 History 62.5 mcg-vilant 25 mcg inhalat.powder (Trelegy Ellipta) albuterol sulfate 90 mcg/actuation 2 puff inhalation Q4H PRN 07/29/23 08/22/23 History aerosol inhaler SHORTNESS OF BREATH/WHEEZING galcanezumab-gnlm 120 mg/mL 120 mg subcut Q30D 07/29/23 Unknown History subcutaneous syringe (Emgality) isosorbide mononitrate 30 mg 30 mg PO DAILY HEART 07/29/23 08/22/23 History tablet,extended release 24 hr levothyroxine 88 mcg tablet 176 mcg PO DAILY THYROID 07/29/23 08/22/23 History trazodone 50 mg tablet 50 - 100 mg PO QHS SLEEP 07/29/23 08/22/23 History atenolol 25 mg tablet 25 mg PO DAILY PRN ANXIETY 08/23/23 08/22/23 History Allergy/AdvReac Type Severity Reaction Status Date / Time hydrochlorothiazide AdvReac Intermediate Contributes Verified 08/23/23 08:46 to gout naproxen (From Naprosyn) AdvReac Intermediate Nausea Verified 08/23/23 08:46 aspirin AdvReac Nausea Verified 08/23/23 08:46 Family History Father , Age 72 Hypertension Mother CAD (coronary artery disease) Myocardial infarction, Onset Age: 55 Hypertension Sister CAD (coronary artery disease) Brother Cancer Surgical History History of cardiac catheterization History of History of carpal tunnel surgery of right wrist History of carpal tunnel surgery of left wrist Hx of cystoscopy History of left heart catheterization (11/11/20) history of uterine ablation Social History household members: none housing: apartment Smoking Status: Never smoker alcohol intake: never substance use type: does not use caffeine: No ROS ROS ED Constitutional Constitutional ED: Denies chills, fever(s) or sweats Eyes Eyes: Denies blurry vision or change in vision ENT ENT ED: Denies ear pain or sore throat Cardiovascular Cardiovascular: Denies chest pain, palpitations or racing heartbeat Respiratory/Chest Respiratory/Chest: Denies cough, dyspnea or sputum Gastrointestinal Gastrointestinal: Denies abdominal pain, constipation, diarrhea, nausea or vomiting Genitourinary Genitourinary ED: Denies dysuria, hematuria or urinary frequency Musculoskeletal Musculoskeletal: Denies arthralgias, myalgias or neck pain Integumentary Denies abscess, Abrasions or rash Neurologic Neurologic: Denies headache(s), paresthesias or weakness Psychiatric Psychiatric: Denies anxiety, depression, suicidal ideation or suicidal thoughts Endocrine Endocrinology: Denies polydipsia or polyuria EXAM Physical Exam Const Vital Signs: 08/23/23 08:44 08/23/23 09:55 08/23/23 09:55 Temperature 97 F L Temperature Source Temporal Pulse Rate 77 72 Pulse Rate [Lying] Pulse Rate [Sitting (for 1 minute prior to obtaining)] Pulse Rate [Standing (for 1 minute prior to obtaining)] Respiratory Rate 14 21 H Respiratory Pattern Normal Blood Pressure 146/105 H Blood Pressure [Lying] Blood Pressure [Sitting (for 1 minute prior to obtaining)] Blood Pressure [Standing (for 1 minute prior to obtaining)] Blood Pressure Mean 118 Blood Pressure Mean [Lying] Blood Pressure Mean [Sitting (for 1 minute prior to obtaining)] Blood Pressure Mean [Standing (for 1 minute prior to obtaining)] Pulse Ox 100 96 Oxygen Delivery Method Room Air Room Air 08/23/23 10:07 08/23/23 10:44 08/23/23 10:51 Temperature Temperature Source Pulse Rate 85 Pulse Rate [Lying] 84 Pulse Rate [Sitting (for 1 minute prior to obtaining)] 88 Pulse Rate [Standing (for 1 minute prior to obtaining)] 88 Respiratory Rate 26 H Respiratory Pattern Blood Pressure 176/121 H Blood Pressure [Lying] 152/91 H Blood Pressure [Sitting (for 1 minute prior to obtaining)] 165/95 H Blood Pressure [Standing (for 1 minute prior to obtaining)] 181/117 H Blood Pressure Mean 139 Blood Pressure Mean [Lying] 111 Blood Pressure Mean [Sitting (for 1 minute prior to obtaining)] 118 Blood Pressure Mean [Standing (for 1 minute prior to obtaining)] 138 Pulse Ox 95 Oxygen Delivery Method Room Air Room Air 08/23/23 12:00 08/23/23 13:04 Temperature 97.5 F L Temperature Source Pulse Rate 82 85 Pulse Rate [Lying] Pulse Rate [Sitting (for 1 minute prior to obtaining)] Pulse Rate [Standing (for 1 minute prior to obtaining)] Respiratory Rate 18 16 Respiratory Pattern Blood Pressure 165/106 H 165/95 H Blood Pressure [Lying] Blood Pressure [Sitting (for 1 minute prior to obtaining)] Blood Pressure [Standing (for 1 minute prior to obtaining)] Blood Pressure Mean 125 118 Blood Pressure Mean [Lying] Blood Pressure Mean [Sitting (for 1 minute prior to obtaining)] Blood Pressure Mean [Standing (for 1 minute prior to obtaining)] Pulse Ox 97 96 Oxygen Delivery Method Room Air Positive obese and unkempt General Appearance ED: unkempt Nutritional Appearance: obese HEENT Reports moist mucous membranes Eyes PERRL and EOMs intact bilaterally Chest Wall inspection of chest normal Resp clear to auscultation bilaterally Auscultation: Negative for rales, rhonchi or wheezes Cardio regular rate and regular rhythm Extremity normal to inspection Neuro oriented x3 and CN's II-XII intact bilaterally Sensorium / Orientation: alert Motor Exam: general weakness Psych mental status grossly normal Appearance: unkempt Skin no rashes or lesions noted and no wounds MDM MDM MDM Narrative Medical decision making narrative: Patient presenting with generalized weakness she states he feels lightheaded. She states she started beta-skylar for the first time last night and this may be contributing. She does not know what it is. She did state that she had chest pain at some point. Differential clues orthostatic hypotension, vertigo, dehydration, anemia, electrolyte abnormalities, dysrhythmia, ACS, hyperglycemia, UTI. CBC will be obtained to assess white blood cell count, hemoglobin, platelets. BMP to assess renal function, electrolytes, glucose. High-sensitivity troponin and EKG to assess for ischemia/dysrhythmia. BNP to assess for CHF. Chest x-ray to rule out pneumonia. Urinalysis will be obtained. CBC shows leukocytosis of 15.2 which is unchanged. Hemoglobin 10.9. This is near baseline. Creatinine 1.15 which is also near baseline. Urinalysis negative for infection. EKG on my interpretation shows a sinus rhythm at 73 beats minute without sign of ischemic change. High-sensitivity troponin is 8. Chest x-ray interpreted by myself shows mild vascular congestion however patient is not requiring any O2 supplementation. Patient is known to be noncompliant with her medications as well. Orthostatic vital signs are negative. Patient was able to ambulate to the bathroom without any difficulties. The patient states she does feel weak but does not want to be placed in [place] [facility]. I discussed this with her at length. She wanted initially to his stay for 1 or 2 days in the hospital and I was able to speak with the hospitalist who stated that she does not meet any admission criteria. And since she does not want placement does not really reason to bring her into the hospital. I discussed with her again and she does not want to go to [place] [facility] and wants to go home at this point. Patient will be discharged stable condition. Impression: 1. Weakness 2. Chest pain Lab Data Labs: Laboratory Results - last 24 hr 08/23/23 08/23/23 10:05 11:35 WBC 15.2 H RBC 4.08 L Hgb 10.9 L Hct 35.6 L MCV 87.3 MCH 26.7 L MCHC 30.6 L RDW Std Deviation 56.4 H RDW Coeff of Alfredo 17.6 H Plt Count 430 MPV 10.0 Immature Gran % (Auto) 1.500 H Neut % (Auto) 69.9 Lymph % (Auto) 16.4 L Summers % (Auto) 8.0 Eos % (Auto) 3.4 Baso % (Auto) 0.8 Absolute Neuts (auto) 10.6 H Absolute Lymphs (auto) 2.50 Nucleated RBC % 0 Sodium 141 Potassium 4.3 Chloride 107 Carbon Dioxide 28.0 Anion Gap 6 BUN 14 Creatinine 1.15 H Estim Creat Clear Calc 79.11 Est GFR (MDRD) Af Amer 64 Est GFR (MDRD) Non-Af 52 L BUN/Creatinine Ratio 12.2 Glucose 127 H Calcium 9.5 Troponin I High Sens 8 Urine Color Yellow Urine Clarity Sl. Cloudy Urine pH 6.0 Ur Specific [place] 1.020 Urine Protein 30 H Urine Glucose (UA) Normal Urine Ketones 5 H Urine Occult Blood Negative Urine Nitrite Negative Urine Bilirubin Negative Urine Urobilinogen Normal Ur Leukocyte Esterase 100 H Urine RBC 0 SEEN Urine WBC 10-25 SEEN Ur Squamous Epith Cells 0-5 SEEN Urine Bacteria RARE Urine Mucus 0 SEEN Radiography Diagnostic Testing: Clinical Impression(s) from Imaging Studies Chest X-Ray 08/23/23 09:28 IMPRESSION: Limited inspiratory effort with mild vascular congestion. Cardiomegaly. Electronically Signed: Seun Vieira MD at 10:43 EDT , Discharge Plan Triage Chief Complaint: Confusion ED Provider: Claudio Roach Dx/Rx/DC Orders Instructions: ED Chest Pain, Uncertain Cause, ED Weakness (Uncertain Cause) Prescriptions: No Action budesonide-formoterol [Symbicort] 160-4.5 mcg/actuation HFA aerosol inhaler 2 puff INHALATION BID Trelegy Ellipta 100-62.5-25 mcg blister with device 1 inh INHALATION DAILY lorazepam 1 mg tablet 1 mg PO TID PRN (Reason: ANXIETY ) progesterone micronized 200 mg capsule 400 mg PO QHS cyclobenzaprine 5 mg tablet 5 mg PO Q8H atorvastatin 80 mg Tablet 80 mg PO DAILY metoclopramide HCl [Reglan] 10 mg tablet 10 mg PO Q6H PRN (Reason: NAUSEA AND VOMTING ) Qty: 20 0RF albuterol sulfate 90 mcg/actuation HFA aerosol inhaler 2 puff inhalation Q4H PRN (Reason: SHORTNESS OF BREATH/WHEEZING ) Emgality Syringe 120 mg/mL syringe 120 mg subcut Q30D isosorbide mononitrate 30 mg tablet extended release 24 hr 30 mg PO DAILY levothyroxine 88 mcg tablet 176 mcg PO DAILY trazodone 50 mg tablet 50 - 100 mg PO QHS atenolol 25 mg tablet 25 mg PO DAILY PRN (Reason: ANXIETY ) citalopram 40 mg tablet 40 mg PO DAILY amlodipine 10 mg tablet 10 mg PO DAILY Qty: 90 3RF valsartan 320 mg tablet 160 mg PO BID Qty: 90 3RF potassium chloride 10 mEq capsule, extended release 10 meq PO DAILY Qty: 90 3RF Primary Care Provider: Nasreen Sutton Referrals: Nasreen Sutton MD [Primary Care Provider] - Print Language: [place] Irish Disposition Disposition: Home, Self Care
[2023-08-23] MEDS: Ipratropium/Albuterol Sulfate 3 ML AMPUL.NEB INHALATION (09:54)
[2023-08-23 09:55] VITALS: PULSE 72; RESP 21; O2SAT 96
[2023-08-23 10:07] VITALS: BMI 52.7
[2023-08-23 10:21] LABS: Absolute Neutrophil Count 10.6 X10^3/uL (2.0-7.7); Basophil# 0.12 X10^3/uL; Basophil% 0.8 % (0-1); Eosinophil# 0.52 X10^3/uL; Eosinophils% 3.4 % (0-5); Hematocrit 35.6 % (37-47); Hemoglobin 10.9 g/dL (12.0-15.0); Lymphocyte % 16.4 % (19-41); Mean Corp Hgb Conc 30.6 g/dL (32-36); Mean Corpuscular Hgb 26.7 pg (27.0-32.0); Mean Corpuscular Volume 87.3 fL (81-99); Monocyte# 1.22 X10^3/uL; NRBC Flagged by Analyzer 0 % (0-5); Neutrophil # 10.63 X10^3/uL (2.7-7.7); Neutrophil % 69.9 % (47-70); Platelet Count 430 K/mm3 (150-450); RBC Distribution Width CV 17.6 % (11.6-14.6); RBC Distribution Width SD 56.4 fl (35.1-43.9); Red Blood Count 4.08 M/mm3 (4.2-5.4); White Blood Count 15.2 K/mm3 (4.4-11.0)
[2023-08-23 10:40] LABS: Anion Gap 6 (5-15); BUN 14 mg/dL (7-18); BUN/Creat Ratio 12.2 RATIO (10-20); Calcium,Total 9.5 mg/dL (8.5-10.1); Chloride 107 mmol/L (98-107); Creatinine, Serum 1.15 mg/dL (0.55-1.02); EST Glomerular Filtration Rate 52 mL/min (>60); Est Glom Filt Rate - Afr Amer 64 mL/min (>60); Estimated Creatinine Clearance 79.11 ml/min; Glucose 127 mg/dL (74-106); Potassium 4.3 mmol/L (3.5-5.1); Sodium Level 141 mmol/L (136-145); Troponin-I HS 8 pg/mL (3.0-54.0)
[2023-08-23 10:44] VITALS: BP 176/121; PULSE 85; RESP 26; O2SAT 95
[2023-08-23 10:51] VITALS: BP 152/91; BP 165/95; BP 181/117; PULSE 84; PULSE 88
[2023-08-23 11:39] LABS: Mucous, Urine 0 SEEN /hpf (<or=2+); Red Blood Cells-Urine 0 SEEN /hpf (0-5)
[2023-08-23 11:43] LABS: Color, Urine Yellow (Yellow); Glucose, Dipstick Normal (Normal); Ketone-Dipstick 5 mg/dl (Negative); Leukocyte Esterase-Dipstick 100 /ul (Negative); Nitrite-Dipstick Negative (Negative); Occult Blood-Urine Negative /ul (Negative); Protein-Dipstick 30 mg/dl (Negative); Urine Bilirubin Dipstick Negative (Negative); Urine Clarity Sl. Cloudy (Clear); Urine Urobilinogen Normal (Normal)
[2023-08-23 11:58] LABS: Bacteria RARE /hpf (None Seen); Squamous Epithelial Cells - UA 0-5 SEEN /hpf (5-10); White Blood Cells 10-25 SEEN /hpf (0-5)
[2023-08-23 12:00] VITALS: BP 165/106; PULSE 82; RESP 18; O2SAT 97
[2023-08-23 13:04] VITALS: BP 165/95; PULSE 85; RESP 16; TEMP 36.4; O2SAT 96
--- NOTE | 2023-08-23 14:00 | CM.ED ---
Social Work Reason for referral: High utilization of the emergency department Referral source: rina Viveros RN Chart reviewed patient has had 20 emergency department visits between February 28, 2023 and August 23, 2023. None of these emergency department visits have resulted in any type of inpatient or observation stay. 28 times to the [facility] ED in 2022, which resulted for inpatient or observation admissions to the acute medical floor. Noted history of [facility] CCN in 2022. Per conversation with RN Patient's mother has called in expressing concerns about the patient's high utilization of the emergency department and has shared that patient is also going to [facility] emergency department. 1310 -presented to patient's room to discuss concerns, barriers to care, and what resources services may be of benefit to the patient. Patient was no longer in the room and after speaking with nursing found that patient left without discharge paperwork. 1400 -received phone call from the patient who called in to see what type of health could get. Patient reports she left before social work, because was not sure if patient was supposed to leave or not. Educated patient, the patient left without discharge instructions and should always wait for those instructions before leaving the department. Through conversation patient reported that would like to have some help. Discussed counseling, and patient reported would be willing to do this. Attempted to discuss options but patient was really unsure. Patient's mother got on the phone, expressed that has a person who might be good and will try to get the name. The mother also expressed that thankful someone is trying to help the patient. Patient talked of wanting to have help at home. Explored whether patient has a home care chaplainmanager online or [facility]. Patient uncertain but reports someone is sending out people to make home modifications to the bathroom. Patient agreeable to this internal communications writer trying to sort out who may be case managing this patient. Plan: SW will follow up on some resource for patient, as well as start to look into an ED Care Plan. -ANDRES Shannon
--- NOTE | 2023-08-26 12:00 | CM.ED ---
Social Work This typewriter mechanic reached out to the [facility] on aging on 08.24.23 and left message at the [facility]. Hanna from this agency called this typewriter mechanic back today. Hanna was able to verify that patient was actually approved for the [place] Waiver program, but disenrollment in March due to enrolling into a dual MCR/GUY plan. Hanna provided this typewriter mechanic the number to [facility] as the number to call and seek out who patient's social work case manager would be. -ANDRES Shannon
== END 2023-08-23 13:42 | disposition home or self-care (01) ==
PROVIDERS: Emergency Provider Student in an Organized Health Care Education/Training Program; PCP Family Medicine; Visit Provider Student in an Organized Health Care Education/Training Program
DX: R41.0 Disorientation, unspecified (principal); J44.9 Chronic obstructive pulmonary disease, unspecified; E11.22 Type 2 diabetes mellitus with diabetic chronic kidney disease; R07.9 Chest pain, unspecified; I12.9 Hypertensive chronic kidney disease with stage 1 through stage 4 chronic kidney disease, or unspecified chronic kidney disease; E78.00 Pure hypercholesterolemia, unspecified; N18.9 Chronic kidney disease, unspecified; R53.1 Weakness; Z86.73 Personal history of transient ischemic attack (TIA), and cerebral infarction without residual deficits; G47.33 Obstructive sleep apnea (adult) (pediatric); Z99.81 Dependence on supplemental oxygen; F41.9 Anxiety disorder, unspecified; Z79.899 Other long term (current) drug therapy; Z79.51 Long term (current) use of inhaled steroids; E03.9 Hypothyroidism, unspecified
CPT/HCPCS: 71045; 80048; 81001; 84484; 85025; 93005; 94640; 99284; A4216

== ENCOUNTER 2023-08-26 16:15 | Emergency (ER) | payer MEDICARE, MEDICAID, SELFPAY ==
[2023-08-26 16:15] VITALS: BP 157/104; PULSE 84; RESP 18; TEMP 36.1; O2SAT 99; BMI 52.0
--- NOTE | 2023-08-26 16:52 | ED.VIS.GI ---
HPI HPI - GI History of Present Illness Chief Complaint: Abd Pain Detail of Chief Complaint: Periumbilical abdominal pain Informant: patient Abdominal Pain/Flank Pain Onset: Yesterday Context: - (Patient is very vague. She cannot tell me if it came on gradually or abruptly.) Timing: Continuous Quality: - (Unable to use numbing the quality of the pain other than it hurts when touched she was given multiple adjectives to help her describe the pain and she is unable) Location: - (Periumbilical) Current Severity: Mild Maximum Severity: Moderate Worsened by: - (When touched) Relieved by: Nothing Nausea/Vomiting/Emesis GI Symptom: Positive for Nausea and Vomiting Onset: Yesterday (2 or 3 times she believes) Diarrhea/Melena/Hematochezia GI Symptom: Negative for Diarrhea, Melena or Hematochezia Associated Symptoms Associated Symptoms: Negative for Dysuria, Frequency, Hematuria or Urgency Narrative Narrative: Patient 53-year-old woman. She has been seen 5 times since August 11. On the and she was seen for abdominal pain. She presents because of abdominal pain that apparently started yesterday is periumbilical and worse when touched. She reports nausea vomiting she believes either 2 or 3 times yesterday. Has not had a bowel movement in 2 days. She has not taken anything for the abdominal pain. She denies fever, chills night sweats. Denies weight gain or weight loss. She denies history of diabetes.Problem list indicates she has diabetes. Recent blood work indicates she has a elevated blood sugar every time she arrives. Patient denies dysuria, frequency, urgency or hematuria. Patient denies any vaginal discharge. She denies abdominal surgery. At this time for she did report to surgery for a stone remotely. Prior similar symptoms: Yes Recent Illness/Hospitalization: No PFSH PFS Medical History Walker as ambulation aid Ambulates with cane Low iron History of renal disease High cholesterol DVT (deep venous thrombosis) PONV (postoperative nausea and vomiting) Stroke/cerebrovascular accident Sleep apnea [facility] follow-up encounter Scalp hematoma Pulmonary embolism Post-menopausal Thyroid disease Injury of head and neck Dietary restriction Difficulty swallowing BiPAP (biphasic positive airway pressure) dependence COPD (chronic obstructive pulmonary disease) Shortness of breath on exertion Leg cramps History of pain when walking History of edema History of echocardiogram History of stress test Syncope Abnormal glucose Noncompliance DAVY treated with BiPAP UTI (urinary tract infection) Vitamin D deficiency Restless leg syndrome Vitamin B12 deficiency Iron deficiency anemia History of chronic back pain Wears glasses Arthritis Non-smoker Hydronephrosis Depression Anemia Migraine headache Chronic kidney disease Diabetes mellitus Gout Celiac disease Hyperlipidemia GERD (gastroesophageal reflux disease) Dyspnea on exertion Chest pain Hypersomnia Cardiac murmur Microcytic anemia Hypertension Morbid obesity with BMI of 40.0-44.9, adult Asthma Hypothyroidism Anxiety Home Medications ?Medication ?Instructions ?Recorded ?Last Taken ?Type citalopram 40 mg tablet 40 mg PO DAILY DEPRESSION/ANXIETY 07/27/19 08/22/23 History budesonide-formoterol HFA 160 2 puff inhalation BID COPD 04/02/20 08/22/23 History mcg-4.5 mcg/actuation aerosol inhaler (Symbicort) lorazepam 1 mg tablet 1 mg PO TID PRN ANXIETY 05/04/22 02/08/23 History progesterone micronized 200 mg 400 mg PO QHS HORMONES 10/11/22 08/22/23 History capsule amlodipine 10 mg tablet 10 mg PO DAILY BLOOD PRESSURE #90 10/28/22 08/22/23 Rx tabs valsartan 320 mg tablet 160 mg (1/2 x 320 mg) PO BID BLOOD 10/28/22 07/27/23 Rx PRESSURE #90 tabs metoclopramide HCl 10 mg tablet 10 mg PO Q6H PRN NAUSEA AND 01/07/23 Unknown Rx (Reglan) VOMTING #20 tabs atorvastatin 80 mg tablet 80 mg PO DAILY CHOLESTEROL 02/10/23 08/22/23 History cyclobenzaprine 5 mg tablet 5 mg PO Q8H MUSCLE SPASMS 02/10/23 08/22/23 History potassium chloride 10 mEq 10 meq PO DAILY SUPPLEMENT #90 05/02/23 08/22/23 Rx capsule,extended release caps fluticasone fur. 100 mcg-umeclid 1 inh inhalation DAILY COPD 06/20/23 08/22/23 History 62.5 mcg-vilant 25 mcg inhalat.powder (Trelegy Ellipta) albuterol sulfate 90 mcg/actuation 2 puff inhalation Q4H PRN 07/29/23 08/22/23 History aerosol inhaler SHORTNESS OF BREATH/WHEEZING galcanezumab-gnlm 120 mg/mL 120 mg subcut Q30D 07/29/23 Unknown History subcutaneous syringe (Emgality) isosorbide mononitrate 30 mg 30 mg PO DAILY HEART 07/29/23 08/22/23 History tablet,extended release 24 hr levothyroxine 88 mcg tablet 176 mcg PO DAILY THYROID 07/29/23 08/22/23 History trazodone 50 mg tablet 50 - 100 mg PO QHS SLEEP 07/29/23 08/22/23 History atenolol 25 mg tablet 25 mg PO DAILY PRN ANXIETY 08/23/23 08/22/23 History Allergy/AdvReac Type Severity Reaction Status Date / Time hydrochlorothiazide AdvReac Intermediate Contributes Verified 08/26/23 16:17 to gout naproxen (From Naprosyn) AdvReac Intermediate Nausea Verified 08/26/23 16:17 aspirin AdvReac Nausea Verified 08/26/23 16:17 Family History Father , Age 72 Hypertension Mother CAD (coronary artery disease) Myocardial infarction, Onset Age: 55 Hypertension Sister CAD (coronary artery disease) Brother Cancer Surgical History History of cardiac catheterization History of History of carpal tunnel surgery of right wrist History of carpal tunnel surgery of left wrist Hx of cystoscopy History of left heart catheterization (11/11/20) history of uterine ablation Social History household members: none housing: apartment Smoking Status: Never smoker alcohol intake: never substance use type: does not use caffeine: No ROS ROS ED Constitutional Constitutional ED: Denies chills, fever(s), subjective, sweats or weight loss ENT ENT ED: Denies ear pain, rhinorrhea or sore throat Cardiovascular Cardiovascular: Denies chest pain, orthopnea, palpitations or racing heartbeat Respiratory/Chest Respiratory/Chest: Denies cough, dyspnea, dyspnea on exertion or orthopnea Gastrointestinal Gastrointestinal: Reports abdominal pain, nausea and vomiting; Denies constipation, diarrhea or melena Genitourinary Genitourinary ED: Denies dysuria, hematuria or urinary frequency Musculoskeletal Musculoskeletal: Denies arthralgias, back pain or myalgias Integumentary Denies rash Neurologic Neurologic: Denies headache(s) or paresthesias Psychiatric Psychiatric: Denies anxiety or depression Hematologic/Lymphatic Hematologic/Lymphatic: Denies easy bleeding or easy bruising Allergic/Immunologic Allergic/Immunologic ED: Denies mouth swelling or tongue swelling EXAM Physical Exam Const Vital Signs: 08/26/23 16:15 08/26/23 18:01 Temperature 97 F L Temperature Source Temporal Pulse Rate 84 75 Respiratory Rate 18 18 Blood Pressure 157/104 H Blood Pressure Mean 121 Pulse Ox 99 Oxygen Delivery Method Room Air Room Air Positive well nourished, well developed and unkempt Constitutional Narrative: BMI is 52 General Appearance ED: unkempt and well developed; Negative for pallor HEENT Reports moist mucous membranes atraumatic Eyes PERRL and EOMs intact bilaterally General Eye ED: Negative for pale conjunctiva or scleral icterus Neck no lymphadenopathy and supple Resp normal respiratory effort and clear to auscultation bilaterally Cardio regular rate, regular rhythm, S1 normal heart sound, S2 normal heart sound and no murmurs GI non-distended; Negative for non-tender GI Narrative: With distraction there is no pain. Otherwise she has pain in the periumbilical area with light touch. Unable to appreciate any masses or hepatosplenomegaly due to body habitus. There is no evidence of periumbilical hernia. Auscultation: hypoactive bowel sounds Palpation: soft Back/Spine no CVA tenderness Neuro CN's II-XII intact bilaterally and moves all extremities Sensorium / Orientation: alert Psych Appearance: unkempt Mood & Affect: depressed Skin no wounds General Skin Exam: Negative for jaundice or pallor MDM MDM MDM Narrative Medical decision making narrative: Differential diagnosis is abdominal pain of unknown etiology, doubt biliary disease, peptic ulcer disease cannot say with any degree of certainty that she may not have a small umbilical hernia This may also represent depression History & Record Review Additional record(s) reviewed:: Prior ED visit (Documented in the HPI narrative) and Prior labs Lab Data Attestation: I reviewed the patient's lab results. Lab results narrative: White count is slightly elevated 12.7 without a shift. Her most recent CBC were remarkable for elevated white count. This is lower than prior. Comprehensive metabolic panel reveals slight elevation alkaline phosphatase and glucose of 129 and 108 respectively. Lipase was normal. Labs: Laboratory Results - last 24 hr 08/26/23 17:10 WBC 12.7 H RBC 4.14 L Hgb 11.3 L Hct 37.1 MCV 89.6 MCH 27.3 MCHC 30.5 L RDW Std Deviation 58.0 H RDW Coeff of Alfredo 17.9 H Plt Count 371 MPV 9.8 Immature Gran % (Auto) 1.200 H Neut % (Auto) 69.1 Lymph % (Auto) 15.7 L Hitchcock % (Auto) 9.3 Eos % (Auto) 4.2 Baso % (Auto) 0.5 Absolute Neuts (auto) 8.8 H Absolute Lymphs (auto) 1.99 Nucleated RBC % 0 Sodium 140 Potassium 5.1 Chloride 107 Carbon Dioxide 26.0 Anion Gap 7 BUN 10 Creatinine 1.04 H Estim Creat Clear Calc 86.77 Est GFR (MDRD) Af Amer 71 Est GFR (MDRD) Non-Af 59 L BUN/Creatinine Ratio 9.6 L Glucose 108 H Calcium 9.2 Total Bilirubin 0.40 AST 47 H ALT 51 Alkaline Phosphatase 129 H Total Protein 6.8 Albumin 2.9 L Globulin 3.9 Albumin/Globulin Ratio 0.7 L Lipase 36 Management Discussion w/another healthcare provider: dairy husbandry worker/Case management (Patient had 30 visits since beginning of the year) Treatment and Re-Evaluation :: Patient was discharged home. Nurse informed me that she is coming here because she wants a 3-day stay and have someone take care of her. Case management was made aware of this and will formulate a care plan for this patient. Discharge Plan Triage Chief Complaint: Abd Pain ED Provider: Jcarlos Anthony Dx/Rx/DC Orders Clinical Impression: Abdominal pain of unknown cause, Fatigue, Hypothyroidism, Diabetes mellitus, CAD (coronary artery disease) Instructions: ED Abdominal Pain Unkn Cause Fem Prescriptions: No Action budesonide-formoterol [Symbicort] 160-4.5 mcg/actuation HFA aerosol inhaler 2 puff INHALATION BID Trelegy Ellipta 100-62.5-25 mcg blister with device 1 inh INHALATION DAILY lorazepam 1 mg tablet 1 mg PO TID PRN (Reason: ANXIETY ) progesterone micronized 200 mg capsule 400 mg PO QHS cyclobenzaprine 5 mg tablet 5 mg PO Q8H atorvastatin 80 mg Tablet 80 mg PO DAILY metoclopramide HCl [Reglan] 10 mg tablet 10 mg PO Q6H PRN (Reason: NAUSEA AND VOMTING ) Qty: 20 0RF albuterol sulfate 90 mcg/actuation HFA aerosol inhaler 2 puff inhalation Q4H PRN (Reason: SHORTNESS OF BREATH/WHEEZING ) Emgality Syringe 120 mg/mL syringe 120 mg subcut Q30D isosorbide mononitrate 30 mg tablet extended release 24 hr 30 mg PO DAILY levothyroxine 88 mcg tablet 176 mcg PO DAILY trazodone 50 mg tablet 50 - 100 mg PO QHS atenolol 25 mg tablet 25 mg PO DAILY PRN (Reason: ANXIETY ) citalopram 40 mg tablet 40 mg PO DAILY amlodipine 10 mg tablet 10 mg PO DAILY Qty: 90 3RF valsartan 320 mg tablet 160 mg PO BID Qty: 90 3RF potassium chloride 10 mEq capsule, extended release 10 meq PO DAILY Qty: 90 3RF Primary Care Provider: Nasreen Sutton Referrals: Nasreen Sutton MD [Primary Care Provider] - 3-5 Days Print Language: Bulgarian Disposition Disposition: Home, Self Care
[2023-08-26 17:26] LABS: Absolute Lymphocyte Count 1.99 X10^3/uL (0.83-4.51); Absolute Neutrophil Count 8.8 X10^3/uL (2.0-7.7); Basophil# 0.06 X10^3/uL; Basophil% 0.5 % (0-1); Eosinophil# 0.53 X10^3/uL; Eosinophils% 4.2 % (0-5); Hematocrit 37.1 % (37-47); Hemoglobin 11.3 g/dL (12.0-15.0); Lymphocyte # 1.99 X10^3/ul (0.83-4.51); Lymphocyte % 15.7 % (19-41); Mean Corp Hgb Conc 30.5 g/dL (32-36); Mean Corpuscular Hgb 27.3 pg (27.0-32.0); Mean Corpuscular Volume 89.6 fL (81-99); Mean Platelet Vol. 9.8 fl (6.2-12.0); Monocyte# 1.18 X10^3/uL; Monocyte% 9.3 % (0-10); NRBC Flagged by Analyzer 0 % (0-5); Neutrophil # 8.77 X10^3/uL (2.7-7.7); Neutrophil % 69.1 % (47-70); Platelet Count 371 K/mm3 (150-450); RBC Distribution Width CV 17.9 % (11.6-14.6); Red Blood Count 4.14 M/mm3 (4.2-5.4); White Blood Count 12.7 K/mm3 (4.4-11.0)
[2023-08-26 17:44] LABS: ALB/GLOB Ratio 0.7 RATIO (0.9-2.4); AST(SGOT) 47 U/L (15-37); Alanine Aminotransfer ALT/SGPT 51 U/L (13-56); Albumin, Serum 2.9 g/dL (3.2-5.0); Alkaline Phosphatase 129 U/L (45-117); Anion Gap 7 (5-15); BUN 10 mg/dL (7-18); BUN/Creat Ratio 9.6 RATIO (10-20); Calcium,Total 9.2 mg/dL (8.5-10.1); Chloride 107 mmol/L (98-107); Creatinine, Serum 1.04 mg/dL (0.55-1.02); EST Glomerular Filtration Rate 59 mL/min (>60); Est Glom Filt Rate - Afr Amer 71 mL/min (>60); Estimated Creatinine Clearance 86.77 ml/min; Globulin 3.9 g/dL (2.2-4.2); Glucose 108 mg/dL (74-106); Lipase 36 U/L (13-75); Potassium 5.1 mmol/L (3.5-5.1); Protein, Total 6.8 g/dL (6.4-8.2); Sodium Level 140 mmol/L (136-145)
[2023-08-26] MEDS: Ondansetron 4 MG/2 ML Vial IV (17:59)
[2023-08-26 18:01] VITALS: PULSE 75; RESP 18
--- NOTE | 2023-08-26 19:25 | CM.ED ---
Social Work Reason for Referral: High number ED visits Referral Source: Jackeline RN, Dr. Anthony This tech writer familiar with patient from earlier in the week, when patient left the department before SW could see patient about concerns for high utilization of the ED. Did however talk with patient on the phone, and had been trying to sort out if patient is getting any case management or waiver services through [place] [employer]. [place] that case management for patient is directly through the insurance. Spoke with Dr. Anthony who expresses patient would benefit from and ED Care Plan. Met with patient, introducing to self and reason for visit. This tech writer discussed concerns with patient about high utilization of the [facility] ED with this visit making the 21st visit to this ED in 2023, and 28 visits to the ED in 2022 (4 of those visits resulted in an observation or inpatient stay). Patient reports perception this is a lot of visits, but my stomach hurts. Explored who has been caring for patient's stomach complaint, which patient reports is the PCP Dr. Sutton. Discussed how emotional health can manifest in physical symptoms, and that physical/mental health go hand in hand. Patient reports I don't think I need it referencing counseling. Attempted to direct responsibility back to patient, as far as what patient thinks may help. Patient unable to say, only give complaints about things. Patient also acknowledges to have anxiety and depression, and was reportedly evaluated last Tuesday at [facility] ED by crisis for some suicidal statements. Denies thinking of suicide since that time and had had thoughts 2 times in the past/no attempts/no planning. Patient reports was discharged home, and told to follow up with counseling. Throughout this tech writer's visit, the patient focused on counseling being 5 days a week. Educated patient she can try regular outpatient counseling, which is less frequency. Patient reports she may be willing to do this, if I'm not forced to. Through conversation patient complained of not knowing how to use nebulizer, that has not been using BiPap due to issues with the cord. Patient also admits has been frequenting both [facility] ED and [facility] Ur[facility]. Patient shared that wants to stay in the hospital for just a couple of days so can take care of me. Patient admits to being lonely at home. Patient reports would like to have some nursing or a home helper to help patient bathe. Patient reports to be on disability for income. Denies any concerns or issues with reading or writing. Educated patient that an ED Care Plan is forthcoming, which will include recommendations for patient's care. Educated to [employer] drop in center and [employer] Day care as avenues for more social support. Educated patient should call the DME company listed on BiPap for assistance with tubing issues. Encouraged patient to read the direction for the nebulizer machine, on how to work this, or to speak with doctors office. Educated patient that if patient wants a nurse, then to speak with Dr. Sutton for a [facility] order. Educated that patient has a resident care aide through [facility], and this CM would be the person to help patient find personal care help at home. Provided patient with a list of resources on [employer], [employer], and handout on Where to go and When to go. Wrote out for patient numbers to call for follow up including counseling and DME. Discussed [facility] CCN program. Patient reports had this in the past, but was closed out because patient kept coming to the hospital. Patient reports would love to have this again, as patient's mother has this service. Strongly encouraged patient that patient does have some responsibility to self. Reinforced need for patient to seek care at appropriate levels, as well as to try the recommended supports provided to patient. -ANDRES Shannon
[2023-08-26 20:00] VITALS: BP 129/100; PULSE 82; RESP 18; TEMP 36.8; O2SAT 94
[2023-08-26 20:24] VITALS: BP 129/100; PULSE 82; RESP 18; TEMP 36.8; O2SAT 94
== END 2023-08-26 20:28 | disposition home or self-care (01) ==
PROVIDERS: Emergency Provider Emergency Medicine; PCP Family Medicine; Visit Provider Emergency Medicine
DX: R10.9 Unspecified abdominal pain (principal); J44.9 Chronic obstructive pulmonary disease, unspecified; E11.22 Type 2 diabetes mellitus with diabetic chronic kidney disease; N18.9 Chronic kidney disease, unspecified; I12.9 Hypertensive chronic kidney disease with stage 1 through stage 4 chronic kidney disease, or unspecified chronic kidney disease; I25.10 Atherosclerotic heart disease of native coronary artery without angina pectoris; E03.9 Hypothyroidism, unspecified; R53.83 Other fatigue; G47.33 Obstructive sleep apnea (adult) (pediatric); Z99.81 Dependence on supplemental oxygen; Z86.73 Personal history of transient ischemic attack (TIA), and cerebral infarction without residual deficits; F41.9 Anxiety disorder, unspecified; Z79.899 Other long term (current) drug therapy; Z79.51 Long term (current) use of inhaled steroids; E78.00 Pure hypercholesterolemia, unspecified
CPT/HCPCS: 80053; 83690; 85025; 96374; 99284; A4216; J2405

== ENCOUNTER 2023-09-01 12:09 | Emergency (ER) | payer MEDICARE, MEDICAID, SELFPAY ==
[2023-09-01 12:10] VITALS: BP 157/97; PULSE 85; RESP 14; TEMP 36.4; O2SAT 100; O2SAT 98; BMI 51.9
--- NOTE | 2023-09-01 12:22 | RAD_ITS ---
STUDY: X-RAY CHEST REASON FOR EXAM: Female, 53 years old. Shortness of breath TECHNIQUE: Single AP portable view of the chest. COMPARISON: August 23, 2023 FINDINGS: The lungs are clear and expanded. There is no demonstrated pleural abnormality. There is mild cardiac enlargement. Normal mediastinum and kumar. Normal visualized pulmonary arteries. There is atherosclerotic tortuosity of the aortic arch and descending thoracic aorta. Normal visualized thoracic spine. Normal visualized ribs, clavicles, and shoulders. There is no demonstrated abnormality of the visualized soft tissue structures of the upper abdomen. RAD/Chest 1 View (Portable) IMPRESSION: Mild cardiomegaly Electronically Signed: Oren Kam MD at 12:49 EDT ,
--- NOTE | 2023-09-01 12:24 | ED.VIS.DYS ---
HPI History of Present Illness Chief Complaint: Shortness of Breath Narrative Narrative: 53-year-old female past medical history of COPD, hypertension, frequent visits to the emergency department presents with complaint of shortness of breath that began this morning. She denies any fevers or chills, no cough. Stated to the RN that she uses her inhalers without relief and is working on getting a nebulizer machine. She presents because of shortness of breath that she has had since this morning. [facility] Medical History Walker as ambulation aid Ambulates with cane Low iron History of renal disease High cholesterol DVT (deep venous thrombosis) PONV (postoperative nausea and vomiting) Stroke/cerebrovascular accident Sleep apnea Fall Cardiology follow-up encounter Scalp hematoma Pulmonary embolism Post-menopausal Thyroid disease Injury of head and neck Dietary restriction Difficulty swallowing BiPAP (biphasic positive airway pressure) dependence COPD (chronic obstructive pulmonary disease) Shortness of breath on exertion Leg cramps History of pain when walking History of edema History of echocardiogram History of stress test Syncope Abnormal glucose Noncompliance DAVY treated with BiPAP UTI (urinary tract infection) Vitamin D deficiency Restless leg syndrome Vitamin B12 deficiency Iron deficiency anemia History of chronic back pain Wears glasses Arthritis Non-smoker Hydronephrosis Depression Anemia Migraine headache Chronic kidney disease Diabetes mellitus Gout Celiac disease Hyperlipidemia GERD (gastroesophageal reflux disease) Dyspnea on exertion Chest pain Hypersomnia Cardiac murmur Microcytic anemia Hypertension Morbid obesity with BMI of 40.0-44.9, adult Asthma Hypothyroidism Anxiety Home Medications ?Medication ?Instructions ?Recorded ?Last Taken ?Type citalopram 40 mg tablet 40 mg PO DAILY DEPRESSION/ANXIETY 07/27/19 08/22/23 History budesonide-formoterol HFA 160 2 puff inhalation BID COPD 04/02/20 08/22/23 History mcg-4.5 mcg/actuation aerosol inhaler (Symbicort) lorazepam 1 mg tablet 1 mg PO TID PRN ANXIETY 05/04/22 02/08/23 History progesterone micronized 200 mg 400 mg PO QHS HORMONES 10/11/22 08/22/23 History capsule amlodipine 10 mg tablet 10 mg PO DAILY BLOOD PRESSURE #90 10/28/22 08/22/23 Rx tabs valsartan 320 mg tablet 160 mg (1/2 x 320 mg) PO BID BLOOD 10/28/22 07/27/23 Rx PRESSURE #90 tabs metoclopramide HCl 10 mg tablet 10 mg PO Q6H PRN NAUSEA AND 01/07/23 Unknown Rx (Reglan) VOMTING #20 tabs atorvastatin 80 mg tablet 80 mg PO DAILY CHOLESTEROL 02/10/23 08/22/23 History cyclobenzaprine 5 mg tablet 5 mg PO Q8H MUSCLE SPASMS 02/10/23 08/22/23 History potassium chloride 10 mEq 10 meq PO DAILY SUPPLEMENT #90 05/02/23 08/22/23 Rx capsule,extended release caps fluticasone fur. 100 mcg-umeclid 1 inh inhalation DAILY COPD 06/20/23 08/22/23 History 62.5 mcg-vilant 25 mcg inhalat.powder (Trelegy Ellipta) albuterol sulfate 90 mcg/actuation 2 puff inhalation Q4H PRN 07/29/23 08/22/23 History aerosol inhaler SHORTNESS OF BREATH/WHEEZING galcanezumab-gnlm 120 mg/mL 120 mg subcut Q30D 07/29/23 Unknown History subcutaneous syringe (Emgality) isosorbide mononitrate 30 mg 30 mg PO DAILY HEART 07/29/23 08/22/23 History tablet,extended release 24 hr levothyroxine 88 mcg tablet 176 mcg PO DAILY THYROID 07/29/23 08/22/23 History trazodone 50 mg tablet 50 - 100 mg PO QHS SLEEP 07/29/23 08/22/23 History atenolol 25 mg tablet 25 mg PO DAILY PRN ANXIETY 08/23/23 08/22/23 History Allergy/AdvReac Type Severity Reaction Status Date / Time hydrochlorothiazide AdvReac Intermediate Contributes Verified 09/01/23 12:12 to gout naproxen (From Naprosyn) AdvReac Intermediate Nausea Verified 09/01/23 12:12 aspirin AdvReac Nausea Verified 09/01/23 12:12 Family History Father , Age 72 Hypertension Mother CAD (coronary artery disease) Myocardial infarction, Onset Age: 55 Hypertension Sister CAD (coronary artery disease) Brother Cancer Surgical History History of cardiac catheterization History of History of carpal tunnel surgery of right wrist History of carpal tunnel surgery of left wrist Hx of cystoscopy History of left heart catheterization (11/11/20) history of uterine ablation Social History household members: none housing: apartment Smoking Status: Never smoker alcohol intake: never substance use type: does not use caffeine: No ROS ROS ED ROS Narrative Constitutional: No fever, no chills. HEENT: No sore throat. No neck pain. No loss of vision. No rhinorrhea. Cardiovascular: No chest pain. No palpitations. No pedal edema. Respiratory: No cough, positive shortness of breath. Abdominal: Chronic abdominal pain. No nausea. No vomiting. Genitourinary: No dysuria. No hematuria. Musculoskeletal: No myalgias. No arthralgias. Neurologic: No headaches. No dizziness. No lightheadedness. Skin: No rash. No change in color. Psychiatric: No depression. No anxiety. EXAM Physical Exam Narrative Exam Narrative: Afebrile. Vital signs noted. HEENT: Normocephalic. Atraumatic. PERRL, EOMI. Neck soft and supple. No point tenderness or step off. Cardiovascular: Regular rate and rhythm. No murmurs, rubs, or gallops appreciated. Respiratory: No tachypnea. Lungs clear to auscultation bilaterally. Gastrointestinal: Abdomen soft, nontender, with normoactive bowel sounds. No rebound or guarding. Neurological: Awake. Alert. Nonfocal, nonlateralizing. Skin: No rash. Normal color. No pallor. Musculoskeletal: No pedal edema. Full range of motion extremities. Const Vital Signs: 09/01/23 12:10 09/01/23 12:10 09/01/23 12:10 Temperature 97.6 F L Temperature Source Temporal Pulse Rate 85 85 Respiratory Rate 14 14 Respiratory Effort Normal Respiratory Depth Shallow Respiratory Pattern Normal Blood Pressure 157/97 H 157/97 H Blood Pressure Mean 117 117 Pulse Ox 100 100 Oxygen Delivery Method Room Air Room Air Room Air 09/01/23 12:43 Temperature Temperature Source Pulse Rate Respiratory Rate 20 H Respiratory Effort Respiratory Depth Respiratory Pattern Normal Blood Pressure Blood Pressure Mean Pulse Ox Oxygen Delivery Method MDM MDM MDM Narrative Medical decision making narrative: I reviewed the patient's prior records and she has had multiple visits to the ED since the beginning of the year. During her last visit, case management/social work was consulted to devise a care plan for her because of her overutilization. Additionally, I do not feel that she needs emergent laboratory work or CT imaging regarding her chronic abdominal pain. She requested that she receive an albuterol aerosol treatment. Her pulse ox is 100% on room air so I have low suspicion for pneumonia or pneumothorax. I will obtain a chest x-ray in 1 view to rule out pneumonia or pneumothorax. Chest x-ray in 1 view interpreted by myself independently shows no evidence of pneumonia or pneumothorax. I reviewed the radiology report which confirms my independent interpretation. Upon repeat examination at approximately 1300, she is resting comfortably. I do not feel that she requires any further imaging, or admission. She states now that she has inhalers at home but is waiting for a nebulizer. I feel she can be discharged to follow-up with her primary care provider as her medical screening exam is negative here today. Disposition is discharged home in stable condition. History & Record Review Discussion w/independent historian: Patient Additional record(s) reviewed:: Prior ED visit and Prior labs Radiography Chest X-Ray - ED: 1 View and Read by ED Physician Diagnostic Testing: Clinical Impression(s) from Imaging Studies Chest X-Ray 09/01/23 12:22 IMPRESSION: Mild cardiomegaly Electronically Signed: Oren Kam MD at 12:49 EDT Reading Location ID and State: [address] [place] [address] , Service support , Discharge Plan Triage Chief Complaint: Shortness of Breath ED Provider: [place] Dx/Rx/DC Orders Clinical Impression: COPD (chronic obstructive pulmonary disease), Shortness of breath Instructions: ED Dyspnea Prescriptions: No Action budesonide-formoterol [Symbicort] 160-4.5 mcg/actuation HFA aerosol inhaler 2 puff INHALATION BID Trelegy Ellipta 100-62.5-25 mcg blister with device 1 inh INHALATION DAILY lorazepam 1 mg tablet 1 mg PO TID PRN (Reason: ANXIETY ) progesterone micronized 200 mg capsule 400 mg PO QHS cyclobenzaprine 5 mg tablet 5 mg PO Q8H atorvastatin 80 mg Tablet 80 mg PO DAILY metoclopramide HCl [Reglan] 10 mg tablet 10 mg PO Q6H PRN (Reason: NAUSEA AND VOMTING ) Qty: 20 0RF albuterol sulfate 90 mcg/actuation HFA aerosol inhaler 2 puff inhalation Q4H PRN (Reason: SHORTNESS OF BREATH/WHEEZING ) Emgality Syringe 120 mg/mL syringe 120 mg subcut Q30D isosorbide mononitrate 30 mg tablet extended release 24 hr 30 mg PO DAILY levothyroxine 88 mcg tablet 176 mcg PO DAILY trazodone 50 mg tablet 50 - 100 mg PO QHS atenolol 25 mg tablet 25 mg PO DAILY PRN (Reason: ANXIETY ) citalopram 40 mg tablet 40 mg PO DAILY amlodipine 10 mg tablet 10 mg PO DAILY Qty: 90 3RF valsartan 320 mg tablet 160 mg PO BID Qty: 90 3RF potassium chloride 10 mEq capsule, extended release 10 meq PO DAILY Qty: 90 3RF Primary Care Provider: Nasreen Sutton Referrals: Nasreen Sutton MD [Primary Care Provider] - 3-5 Days if not improving Print Language: Yakut Disposition Disposition: Home, Self Care
[2023-09-01] MEDS: Albuterol 2.5 MG/3 ML VIAL.NEB. INHALATION (12:42)
[2023-09-01 12:43] VITALS: RESP 20
[2023-09-01 13:05] VITALS: BP 149/64; PULSE 89; RESP 18; TEMP 36.6; O2SAT 100
== END 2023-09-01 13:06 | disposition home or self-care (01) ==
PROVIDERS: Emergency Provider Emergency Medicine; PCP Family Medicine; Visit Provider Emergency Medicine
DX: J44.9 Chronic obstructive pulmonary disease, unspecified (principal); E11.22 Type 2 diabetes mellitus with diabetic chronic kidney disease; N18.9 Chronic kidney disease, unspecified; G47.33 Obstructive sleep apnea (adult) (pediatric); Z86.73 Personal history of transient ischemic attack (TIA), and cerebral infarction without residual deficits; Z86.718 Personal history of other venous thrombosis and embolism; Z86.711 Personal history of pulmonary embolism
CPT/HCPCS: 71045; 94640; 99282

== ENCOUNTER → 2023-09-07 | Outpatient (CLI) | payer MEDICARE, MEDICAID, SELFPAY ==
--- NOTE | 2023-09-07 12:51 | ECHOCS_ITS ---
Reason For Study: SOB, Cough Procedure This was a 2D Doppler, Color Flow transthoracic echocardiogram. Contrast injection was performed. Exam performed in department. Left Ventricle Normal LV size. Left ventricular systolic function is normal. The left ventricular ejection fraction is 55 %. No regional wall motion abnormalities noted. Right Ventricle Normal RV size. Normal systolic function. Atria Normal left atrium. Normal right atrium. Mitral Valve Normal mitral valve. Tricuspid Valve Normal tricuspid valve. Unable to estimate RV systolic pressure due to inadequate jet, pulmonary artery pressure probably normal. Aortic Valve Trisinus/trileaflet aortic valve. Mild focal aortic valve thickening. Pulmonic Valve Normal pulmonic valve. Great Vessels Normal aortic root. The pulmonary artery is normal size. Normal inferior vena cava. Pericardium/Pleural No pericardial effusion. Medication Diluted definity 3.5ml given slow IV push to enhance endocardial definition. MMode/2D Measurements & Calculations LVIDd: 4.8 cm IVSd: 1.1 cm Ao root diam: 3.2 cm LVIDs: 3.2 cm LVPWd: 1.1 cm RVDd: 2.1 cm FS: 33.6 % LAV(MOD-bp): 28.4 ml LVAd ap4: 29.0 cm2 SV(MOD-sp4): 64.0 ml LAV(MOD-bp) Indexed: 12.2 ml/m2 LVLd ap4: 7.6 cm LAV(MOD-sp2): 29.0 ml EDV(MOD-sp4): 91.9 ml LAV(MOD-sp4): 27.8 ml EDV(sp4-el): 94.7 ml LVAs ap4: 14.5 cm2 LVLs ap4: 6.2 cm ESV(MOD-sp4): 27.9 ml ESV(sp4-el): 28.7 ml EF(MOD-sp4): 69.7 % EF(sp4-el): 69.7 % SV(sp4-el): 66.0 ml LA A4 area: 14.3 cm2 LA dimension(2D): 2.9 cm RA A4 area: 7.9 cm2 TAPSE: 2.0 cm Time Measurements MV dec time: 0.27 sec Doppler Measurements & Calculations MV E max abdoul: 86.2 cm/sec Lat Peak E' Abdoul: 8.2 cm/sec Med Peak E' Abdoul: 5.2 cm/sec MV A max abdoul: 64.7 cm/sec E/E' lat: 10.5 E/E' med: 16.7 MV E/A: 1.3 MV dec slope: 315.0 cm/sec2 Ao V2 max: 155.4 cm/sec LV V1 max: 107.4 cm/sec Ao max P.7 mmHg LV V1 max P.6 mmHg Ao V2 mean: 113.9 cm/sec Ao mean P.6 mmHg Ao V2 VTI: 27.3 cm PA V2 max: 74.4 cm/sec ECHO/Echo Complete W/ Contrast Interpretation Summary Normal LV size. Left ventricular systolic function is normal. The left ventricular ejection fraction is 55 %. Contrast injection was performed. Structurally normal valves. Ordering Physician: Kiran Bowden V Referring Physician: Nasreen Sutton Performed By: Myrna Colon RDCS, RVT
== END | disposition home or self-care (01) ==
PROVIDERS: PCP Family Medicine; Referring Provider Internal Medicine Pulmonary Disease; Visit Provider Internal Medicine Pulmonary Disease
DX: R05.9 Cough, unspecified (principal); J45.20 Mild intermittent asthma, uncomplicated; R06.02 Shortness of breath
CPT/HCPCS: 93306; Q9957; A4216; C8929

== ENCOUNTER 2023-09-09 17:36 | Emergency (ER) | payer MEDICARE, MEDICAID, SELFPAY ==
[2023-09-09 17:37] VITALS: BP 172/112; PULSE 102; RESP 16; TEMP 35.7; O2SAT 98
[2023-09-09 17:41] VITALS: BMI 52.9
--- NOTE | 2023-09-09 17:50 | RAD_ITS ---
STUDY: X-RAY - LEFT FOOT CLINICAL: Female, 53 years old. Injury/Pain TECHNIQUE: 3 view(s) of the foot. COMPARISON: August 12, 2023 FINDINGS: Normal talus,, and tarsal bones. Small plantar calcaneal spur Normal visualized subtalar, talonavicular, calcaneocuboid, tarsal and tarsometatarsal articulations. Normal metatarsi. Normal metatarsophalangeal joint of the great toe. Normal tibial and fibular sesamoid bones. Normal interphalangeal joint of the great toe. Normal phalanges of the great toe. Normal second through fifth metatarsophalangeal joints. Normal interphalangeal joints of the lesser toes. There is a linear zone of sclerosis of the proximal phalanx of the fourth toe with mild periosteal elevation suggesting healed stress fracture. Diffuse soft tissue swelling of the dorsal surface of the foot.. RAD/Foot min 3 Views IMPRESSION: Soft tissue swelling of the dorsal surface of the foot without definitive evidence for acute fracture or dislocation.. Question healed stress fracture of the proximal phalanx of the fourth toe. Clinical correlation recommended Electronically Signed: Isaac Aviles MD at 18:54 EDT Reading Location ID and State: [address] [place] [address] Tel , Service support ,
--- NOTE | 2023-09-09 17:50 | RAD_ITS ---
STUDY: X-RAY - RIGHT ANKLE REASON FOR EXAM: Female, 53 years old. Injury/Pain TECHNIQUE: 3 view(s) of the ankle. COMPARISON: None. FINDINGS: Normal visualized distal tibia and fibula. Normal medial and lateral malleoli. Normal tibiotalar articulation and ankle mortise. Normal visualized talus and small plantar calcaneal spur. The visualized subtalar, talonavicular, calcaneocuboid and tarsal articulations are normal. Bimalleolar soft tissue swelling. RAD/Ankle min 3 Views IMPRESSION: Bimalleolar sprain without evidence for acute fracture or dislocation Electronically Signed: Isaac Aviles MD at 18:48 EDT ,
--- NOTE | 2023-09-09 17:51 | EDS_ITS ---
HPI HPI - Fall History of Present Illness Chief Complaint: Fall Detail of Chief Complaint: Mechanical fall 2 AM injuring her right ankle and left foot Informant: patient Occured/Mechanism Occurred: Today Mechanism/Context: Yes same level fall Narrative: Tripped over a rolled up throw rug Fall from Height (ft): Not applicable Fall down steps #: Not applicable Usually ambulates: Without assistance Pain/Injury Location: Right ankle and left foot Pain Location: lower extremity Quality of Pain: Dull and Aching Current Severity: Mild Maximum Severity: Severe Worsened by: Movement and weightbearing right and left foot Associated Symptoms Associated Symptoms: Negative for Parasthesias, Weakness, Loss of function, Inability to ambulate, Loss of consciousness or Amnesia Length of loss of consciousness: Not applicable Narrative Narrative: Patient is a 53-year-old woman. She woke up at 2 AM. Was walking. Tripped on a throw rug. Injured her right ankle and left foot. She denied head trauma. Denied loss conscious. Denies neck pain. Denies paresthesia, anesthesia or motor weakness. She does have history of coronary disease, COPD, chronic kidney disease, GERD, diabetes, obstructive sleep apnea and coronary artery disease. She presents because of injury to her right foot ankle and left foot. Patient presently has no other complaints. Prior similar symptoms: No Recent Illness/Hospitalization: No PFSH PFSH Medical History Walker as ambulation aid Ambulates with cane Low iron History of renal disease High cholesterol DVT (deep venous thrombosis) PONV (postoperative nausea and vomiting) Stroke/cerebrovascular accident Sleep apnea Fall Cardiology follow-up encounter Scalp hematoma Pulmonary embolism Post-menopausal Thyroid disease Injury of head and neck Dietary restriction Difficulty swallowing BiPAP (biphasic positive airway pressure) dependence COPD (chronic obstructive pulmonary disease) Shortness of breath on exertion Leg cramps History of pain when walking History of edema History of echocardiogram History of stress test Syncope Abnormal glucose Noncompliance DAVY treated with BiPAP UTI (urinary tract infection) Vitamin D deficiency Restless leg syndrome Vitamin B12 deficiency Iron deficiency anemia History of chronic back pain Wears glasses Arthritis Non-smoker Hydronephrosis Depression Anemia Migraine headache Chronic kidney disease Diabetes mellitus Gout Celiac disease Hyperlipidemia GERD (gastroesophageal reflux disease) Dyspnea on exertion Chest pain Hypersomnia Cardiac murmur Microcytic anemia Hypertension Morbid obesity with BMI of 40.0-44.9, adult Asthma Hypothyroidism Anxiety Home Medications ?Medication ?Instructions ?Recorded ?Last Taken ?Type citalopram 40 mg tablet 40 mg PO DAILY DEPRESSION/ANXIETY 07/27/19 08/22/23 History budesonide-formoterol HFA 160 2 puff inhalation BID COPD 04/02/20 08/22/23 History mcg-4.5 mcg/actuation aerosol inhaler (Symbicort) lorazepam 1 mg tablet 1 mg PO TID PRN ANXIETY 05/04/22 02/08/23 History progesterone micronized 200 mg 400 mg PO QHS HORMONES 10/11/22 08/22/23 History capsule amlodipine 10 mg tablet 10 mg PO DAILY BLOOD PRESSURE #90 10/28/22 08/22/23 Rx tabs valsartan 320 mg tablet 160 mg (1/2 x 320 mg) PO BID BLOOD 10/28/22 07/27/23 Rx PRESSURE #90 tabs metoclopramide HCl 10 mg tablet 10 mg PO Q6H PRN NAUSEA AND 01/07/23 Unknown Rx (Reglan) VOMTING #20 tabs atorvastatin 80 mg tablet 80 mg PO DAILY CHOLESTEROL 02/10/23 08/22/23 History cyclobenzaprine 5 mg tablet 5 mg PO Q8H MUSCLE SPASMS 02/10/23 08/22/23 History potassium chloride 10 mEq 10 meq PO DAILY SUPPLEMENT #90 05/02/23 08/22/23 Rx capsule,extended release caps fluticasone fur. 100 mcg-umeclid 1 inh inhalation DAILY COPD 06/20/23 08/22/23 History 62.5 mcg-vilant 25 mcg inhalat.powder (Trelegy Ellipta) albuterol sulfate 90 mcg/actuation 2 puff inhalation Q4H PRN 07/29/23 08/22/23 History aerosol inhaler SHORTNESS OF BREATH/WHEEZING galcanezumab-gnlm 120 mg/mL 120 mg subcut Q30D 07/29/23 Unknown History subcutaneous syringe (Emgality) isosorbide mononitrate 30 mg 30 mg PO DAILY HEART 07/29/23 08/22/23 History tablet,extended release 24 hr levothyroxine 88 mcg tablet 176 mcg PO DAILY THYROID 07/29/23 08/22/23 History trazodone 50 mg tablet 50 - 100 mg PO QHS SLEEP 07/29/23 08/22/23 History atenolol 25 mg tablet 25 mg PO DAILY PRN ANXIETY 08/23/23 08/22/23 History hydrocodone-acetaminophen 5-325mg 1 tab PO Q6H PRN PRN Pain 3 days 09/09/23 Unknown Rx 5mg-325mg #10 TABLETS Allergy/AdvReac Type Severity Reaction Status Date / Time hydrochlorothiazide AdvReac Intermediate Contributes Verified 09/09/23 17:41 to gout naproxen (From Naprosyn) AdvReac Intermediate Nausea Verified 09/09/23 17:41 aspirin AdvReac Nausea Verified 09/09/23 17:41 Family History Father , Age 72 Hypertension Mother CAD (coronary artery disease) Myocardial infarction, Onset Age: 55 Hypertension Sister CAD (coronary artery disease) Brother Cancer Surgical History History of cardiac catheterization History of History of carpal tunnel surgery of right wrist History of carpal tunnel surgery of left wrist Hx of cystoscopy History of left heart catheterization (11/11/20) history of uterine ablation Social History household members: none housing: apartment Smoking Status: Never smoker alcohol intake: never substance use type: does not use caffeine: No ROS ROS ED Constitutional Constitutional ED: Denies chills or fever(s) Eyes Eyes: Denies blurry vision or change in vision ENT ENT ED: Denies rhinorrhea or sore throat Cardiovascular Cardiovascular: Denies chest pain or palpitations Respiratory/Chest Respiratory/Chest: Denies cough or dyspnea Gastrointestinal Gastrointestinal: Denies abdominal pain, nausea or vomiting Musculoskeletal Musculoskeletal: Reports other Details: Right foot/ankle and left foot pain ; Denies arthralgias, back pain, myalgias or neck pain Integumentary Reports rash Neurologic Neurologic: Denies headache(s) or paresthesias Hematologic/Lymphatic Hematologic/Lymphatic: Denies easy bleeding or easy bruising EXAM Physical Exam Const Vital Signs: 09/09/23 17:37 Temperature 96.2 F L Temperature Source Temporal Pulse Rate 102 H Respiratory Rate 16 Blood Pressure 172/112 H Blood Pressure Mean 132 Pulse Ox 98 Oxygen Delivery Method Room Air Positive well nourished and well developed Constitutional Narrative: BMI is greater than 50. General Appearance ED: well developed and NAD HEENT Reports normocephalic atraumatic Eyes PERRL and EOMs intact bilaterally Eyes Narrative: There is no subconjunctival hemorrhage. General Eye ED: Negative for pale conjunctiva or scleral icterus Neck full ROM, no lymphadenopathy and supple Resp normal respiratory effort, no retractions and clear to auscultation bilaterally Cardio regular rate, regular rhythm, S1 normal heart sound, S2 normal heart sound and no murmurs Extremity Extremity Narrative: Patient has swelling of the right ankle with pain ovation of the lateral malleolus and medial malleolus. There is no action with anterior drawer test. There is pain ovation over the anterior talofibular ligament. There is no pain the patient's base of fifth metatarsal. There is no pain the patient of the midfoot or toes. Patient has evidence of psoriasis. Left foot is swollen with pain outpatient over the metatarsal bones. There is no swelling or tenderness over the medial or lateral malleolus. There is no pain specifically at the base of the fifth metatarsal. There is evidence of psoriasis. Patient has palpable DP pulse bilaterally. Neuro oriented x3, CN's II-XII intact bilaterally and moves all extremities [place] Coma Scale: document GCS findings Spontaneous Obeys Commands Oriented 15 Sensorium / Orientation: alert Psych mental status grossly normal and thought process normal Skin Skin Narrative: Psoriasis MDM MDM MDM Narrative Medical decision making narrative: X-ray of the right ankle was obtained to assess for sprain versus fracture. X- ray of the left foot was obtained to evaluate for contusion versus fracture. Radiography Chest X-Ray - ED: Read by ED Physician (Three-view x-ray of the right ankle and three-view x-ray left foot were obtained. These were independent reviewed interpreted by me at 03/07/2006. Both were negative fracture, subluxation dislocation. There is no widening of the mortise. There is soft tissue swelling noted. Other than the soft ti) Discharge Plan Triage Chief Complaint: Fall ED Provider: Jcarlos Anthony Dx/Rx/DC Orders Clinical Impression: Sprain of anterior talofibular ligament of right ankle, GERD (gastroesophageal reflux disease), Hyperlipidemia, Diabetes mellitus, Chronic kidney disease, Contusion of left foot, initial encounter Instructions: ED Foot Contusion, ED Ankle Sprain (Adult) Prescriptions: New hydrocodone-acetaminophen 5-325 mg tablet 1 tab PO Q6H PRN PRN (Reason: Pain) 3 Days Qty: 10 0RF No Action budesonide-formoterol [Symbicort] 160-4.5 mcg/actuation HFA aerosol inhaler 2 puff INHALATION BID Trelegy Ellipta 100-62.5-25 mcg blister with device 1 inh INHALATION DAILY lorazepam 1 mg tablet 1 mg PO TID PRN (Reason: ANXIETY ) progesterone micronized 200 mg capsule 400 mg PO QHS cyclobenzaprine 5 mg tablet 5 mg PO Q8H atorvastatin 80 mg Tablet 80 mg PO DAILY metoclopramide HCl [Reglan] 10 mg tablet 10 mg PO Q6H PRN (Reason: NAUSEA AND VOMTING ) Qty: 20 0RF albuterol sulfate 90 mcg/actuation HFA aerosol inhaler 2 puff inhalation Q4H PRN (Reason: SHORTNESS OF BREATH/WHEEZING ) Emgality Syringe 120 mg/mL syringe 120 mg subcut Q30D isosorbide mononitrate 30 mg tablet extended release 24 hr 30 mg PO DAILY levothyroxine 88 mcg tablet 176 mcg PO DAILY trazodone 50 mg tablet 50 - 100 mg PO QHS atenolol 25 mg tablet 25 mg PO DAILY PRN (Reason: ANXIETY ) citalopram 40 mg tablet 40 mg PO DAILY amlodipine 10 mg tablet 10 mg PO DAILY Qty: 90 3RF valsartan 320 mg tablet 160 mg PO BID Qty: 90 3RF potassium chloride 10 mEq capsule, extended release 10 meq PO DAILY Qty: 90 3RF Primary Care Provider: Nasreen Sutton Referrals: Nasreen Sutton MD [Primary Care Provider] - 1 Week if not improving Activity Restrictions/Additional Instructions: 1. Wear flat shoes 2. Apply ice to your right ankle and left foot 6-10 times a day. 3. You may be sore for several days. Print Language: Kosovan Disposition Disposition: Home, Self Care
[2023-09-09] MEDS: HYDROcodone Bitartrate/Apap 5/325 Tablet PO (18:17)
== END 2023-09-09 18:20 | disposition home or self-care (01) ==
PROVIDERS: Emergency Provider Emergency Medicine; PCP Family Medicine; Visit Provider Emergency Medicine
DX: S93.491A Sprain of other ligament of right ankle, initial encounter (principal); J44.9 Chronic obstructive pulmonary disease, unspecified; E66.01 Morbid (severe) obesity due to excess calories; Z68.43 Body mass index [BMI] 50.0-59.9, adult; E11.22 Type 2 diabetes mellitus with diabetic chronic kidney disease; S90.32XA Contusion of left foot, initial encounter; W01.198A Fall on same level from slipping, tripping and stumbling with subsequent striking against other object, initial encounter; Y93.01 Activity, walking, marching and hiking; Y99.8 Other external cause status; I12.9 Hypertensive chronic kidney disease with stage 1 through stage 4 chronic kidney disease, or unspecified chronic kidney disease; N18.9 Chronic kidney disease, unspecified; E78.00 Pure hypercholesterolemia, unspecified; K21.9 Gastro-esophageal reflux disease without esophagitis; Z79.899 Other long term (current) drug therapy; Z86.73 Personal history of transient ischemic attack (TIA), and cerebral infarction without residual deficits
CPT/HCPCS: 73610; 73630; 99282

== ENCOUNTER 2023-09-12 17:32 | Emergency (ER) | payer MEDICARE, MEDICAID, SELFPAY ==
[2023-09-12 17:33] VITALS: BP 155/90; PULSE 86; RESP 14; TEMP 36.4; O2SAT 95
--- NOTE | 2023-09-12 18:00 | EKG12_ITS ---
Test Reason : SOB Blood Pressure : / mmHG Vent. Rate : 078 BPM Atrial Rate : 078 BPM P-R Int : 148 ms QRS Dur : 086 ms QT Int : 426 ms P-R-T Axes : 054 024 030 degrees QTc Int : 485 ms Normal sinus rhythm Prolonged QT Abnormal ECG Confirmed by CHAR GONZALEZ, RADHA ([id number]), editorial specialist SONJA ZABALA ([id number]) on 09/14/2023 10:01:08 AM Referred By: Confirmed By:TODD PARDO MD
== END 2023-09-12 18:02 | disposition left against medical advice (07) ==
LOC: ED 18:09
PROVIDERS: PCP Family Medicine
DX: R06.02 Shortness of breath (principal); Z53.21 Procedure and treatment not carried out due to patient leaving prior to being seen by health care provider
CPT/HCPCS: 93005

== ENCOUNTER 2023-09-13 11:29 | Emergency (ER) | payer MEDICARE, MEDICAID, SELFPAY ==
[2023-09-13 11:30] VITALS: BP 149/104; PULSE 66; RESP 18; TEMP 36.4; O2SAT 100; BMI 51.2
--- NOTE | 2023-09-13 11:45 | EKG12_ITS ---
Test Reason : CP Blood Pressure : / mmHG Vent. Rate : 063 BPM Atrial Rate : 063 BPM P-R Int : 156 ms QRS Dur : 082 ms QT Int : 452 ms P-R-T Axes : 055 002 -07 degrees QTc Int : 462 ms Normal sinus rhythm Normal ECG Confirmed by CHAR GONZALEZ, RADHA ([id number]), make up editor ZANDER MAYER ([id number]) on 09/15/2023 10:33:40 A M Referred By: Confirmed By:TODD PARDO MD
[2023-09-13] MEDS: 0.9% Normal Saline (1000mL) 1,000 ML 150 ML IV (11:50)
--- NOTE | 2023-09-13 11:51 | ED.VIS.CHEST ---
HPI History of Present Illness Chief Complaint: Chest Pain Detail of Chief Complaint: Chest pain Informant: patient Narrative Narrative: Patient presents emergency department complaint of chest pain that started 2 days ago. She complains of sharp pain across her chest. She describes nausea and vomiting. She complains of shortness of breath. Patient apparently was seen by primary care physician in the office yesterday and referred to the ER where she came to the ED and went to triage and had an EKG and then apparently found out there was a 2-hour wait and left the department. Patient has history of CVA and prior history of COPD and asthma. She had prior PEs and currently on Eliquis. Has history of anxiety. She denies recent travel or surgery. Patient tells me she is been compliant with her Eliquis. She denies fever or cough. [facility] Medical History Walker as ambulation aid Ambulates with cane Low iron History of renal disease High cholesterol DVT (deep venous thrombosis) PONV (postoperative nausea and vomiting) Stroke/cerebrovascular accident Sleep apnea Fall Cardiology follow-up encounter Scalp hematoma Pulmonary embolism Post-menopausal Thyroid disease Injury of head and neck Dietary restriction Difficulty swallowing BiPAP (biphasic positive airway pressure) dependence COPD (chronic obstructive pulmonary disease) Shortness of breath on exertion Leg cramps History of pain when walking History of edema History of echocardiogram History of stress test Syncope Abnormal glucose Noncompliance DAVY treated with BiPAP UTI (urinary tract infection) Vitamin D deficiency Restless leg syndrome Vitamin B12 deficiency Iron deficiency anemia History of chronic back pain Wears glasses Arthritis Non-smoker Hydronephrosis Depression Anemia Migraine headache Chronic kidney disease Diabetes mellitus Gout Celiac disease Hyperlipidemia GERD (gastroesophageal reflux disease) Dyspnea on exertion Chest pain Hypersomnia Cardiac murmur Microcytic anemia Hypertension Morbid obesity with BMI of 40.0-44.9, adult Asthma Hypothyroidism Anxiety Home Medications ?Medication ?Instructions ?Recorded ?Last Taken ?Type citalopram 40 mg tablet 40 mg PO DAILY DEPRESSION/ANXIETY 07/27/19 08/22/23 History budesonide-formoterol HFA 160 2 puff inhalation BID COPD 04/02/20 08/22/23 History mcg-4.5 mcg/actuation aerosol inhaler (Symbicort) lorazepam 1 mg tablet 1 mg PO TID PRN ANXIETY 05/04/22 02/08/23 History progesterone micronized 200 mg 400 mg PO QHS HORMONES 10/11/22 08/22/23 History capsule valsartan 320 mg tablet 160 mg (1/2 x 320 mg) PO BID BLOOD 10/28/22 07/27/23 Rx PRESSURE #90 tabs metoclopramide HCl 10 mg tablet 10 mg PO Q6H PRN NAUSEA AND 01/07/23 Unknown Rx (Reglan) VOMTING #20 tabs atorvastatin 80 mg tablet 80 mg PO DAILY CHOLESTEROL 02/10/23 08/22/23 History cyclobenzaprine 5 mg tablet 5 mg PO Q8H MUSCLE SPASMS 02/10/23 08/22/23 History potassium chloride 10 mEq 10 meq PO DAILY SUPPLEMENT #90 05/02/23 08/22/23 Rx capsule,extended release caps fluticasone fur. 100 mcg-umeclid 1 inh inhalation DAILY COPD 06/20/23 08/22/23 History 62.5 mcg-vilant 25 mcg inhalat.powder (Trelegy Ellipta) albuterol sulfate 90 mcg/actuation 2 puff inhalation Q4H PRN 07/29/23 08/22/23 History aerosol inhaler SHORTNESS OF BREATH/WHEEZING galcanezumab-gnlm 120 mg/mL 120 mg subcut Q30D 07/29/23 Unknown History subcutaneous syringe (Emgality) isosorbide mononitrate 30 mg 30 mg PO DAILY HEART 07/29/23 08/22/23 History tablet,extended release 24 hr levothyroxine 88 mcg tablet 176 mcg PO DAILY THYROID 07/29/23 08/22/23 History trazodone 50 mg tablet 50 - 100 mg PO QHS SLEEP 07/29/23 08/22/23 History atenolol 25 mg tablet 25 mg PO DAILY PRN ANXIETY 08/23/23 08/22/23 History hydrocodone-acetaminophen 5-325mg 1 tab PO Q6H PRN PRN Pain 3 days 09/09/23 Unknown Rx 5mg-325mg #10 TABLETS amlodipine 10 mg tablet 10 mg PO DAILY BLOOD PRESSURE #90 09/12/23 Unknown Rx tabs Allergy/AdvReac Type Severity Reaction Status Date / Time hydrochlorothiazide AdvReac Intermediate Contributes Verified 09/13/23 11:30 to gout naproxen (From Naprosyn) AdvReac Intermediate Nausea Verified 09/13/23 11:30 aspirin AdvReac Nausea Verified 09/13/23 11:30 Family History Father , Age 72 Hypertension Mother CAD (coronary artery disease) Myocardial infarction, Onset Age: 55 Hypertension Sister CAD (coronary artery disease) Brother Cancer Surgical History History of cardiac catheterization History of History of carpal tunnel surgery of right wrist History of carpal tunnel surgery of left wrist Hx of cystoscopy History of left heart catheterization (11/11/20) history of uterine ablation Social History household members: none housing: apartment Smoking Status: Never smoker alcohol intake: never substance use type: does not use caffeine: No ROS ROS ED Review of Systems ROS Unobtainable: other Constitutional Constitutional ED: Reports lethargy; Denies chills, fever(s), sweats or weight loss Eyes Eyes: Denies blurry vision, change in vision or diplopia ENT ENT ED: Denies rhinorrhea or sore throat Cardiovascular Cardiovascular: Reports chest pain; Denies orthopnea or racing heartbeat Respiratory/Chest Respiratory/Chest: Reports dyspnea and dyspnea on exertion; Denies cough, orthopnea or sputum Gastrointestinal Gastrointestinal: Reports nausea and vomiting; Denies abdominal pain or diarrhea Genitourinary Genitourinary ED: Denies dysuria, hematuria or urinary frequency Musculoskeletal Musculoskeletal: Denies arthralgias, back pain, myalgias or neck pain Integumentary Denies abscess, Abrasions or rash Neurologic Neurologic: Reports headache(s); Denies weakness Psychiatric Psychiatric: Denies anxiety, depression or suicidal thoughts Endocrine Endocrinology: Denies polydipsia, polyphagia or polyuria Hematologic/Lymphatic Hematologic/Lymphatic: Denies easy bleeding, easy bruising or lymphadenopathy Allergic/Immunologic Allergic/Immunologic ED: Denies mouth swelling, tongue swelling or urticaria EXAM Physical Exam Const Vital Signs: 09/13/23 11:30 09/13/23 11:54 09/13/23 12:46 Temperature 97.5 F L 97.2 F L Temperature Source Temporal Pulse Rate 66 62 Respiratory Rate 18 16 Blood Pressure 149/104 H 129/79 H Blood Pressure Mean 119 95 Pulse Ox 100 97 Oxygen Delivery Method Room Air Room Air Positive well nourished and well developed General Appearance ED: well developed and NAD HEENT Reports TM's clear and moist mucous membranes normocephalic and atraumatic; Negative for trauma or tenderness Tympanic Membrane ED: Yes TM's clear Eyes PERRL and EOMs intact bilaterally General Eye ED: Negative for pale conjunctiva or scleral icterus Neck no lymphadenopathy, supple and no JVD General: Negative for tenderness Chest Wall inspection of chest normal and palpation of chest normal Chest: Negative for tenderness Resp normal respiratory effort and clear to auscultation bilaterally Effort and Inspection: Negative for respiratory distress or pain with movement Auscultation: Negative for rhonchi, wheezes or diminished lung sounds Cardio regular rate, regular rhythm, S1 normal heart sound, S2 normal heart sound and no murmurs Peripheral Pulses: pulses 2+ throughout GI normal to inspection, nondistended, normoactive bowel sounds, soft to palpation, non-tender, non-distended and no masses Back/Spine no CVA tenderness and no thoracic nor lumbar tenderness Extremity normal to inspection General Extremety ED: Negative for edema General Extremity: Negative for edema Neuro oriented x3, CN's II-XII intact bilaterally, no sensory deficits noted and gait normal Sensorium / Orientation: awake, alert, oriented to person, oriented to place and oriented to time Motor Exam: strength 5/5 throughout and strength abnormal Psych mental status grossly normal Skin no rashes or lesions noted and no wounds MDM MDM MDM Narrative Medical decision making narrative: Patient presents with chest discomfort and shortness of breath. Patient on Eliquis for history of PEs. She is not tachycardic or hypoxic. She has been compliant with her medications. Patient also in the differential would have concern for acute coronary syndrome. I did review her prior visits and it was noted that she had an echocardiogram 1 week ago that was normal with normal ejection fraction and normal valves. Patient had a stress test on 12/25/2022 that was normal. She had a heart catheterization 11/11/2020 that was angiographically normal. IV line established. EKG obtained on arrival showed a sinus rhythm with a ventricular rate of 63 bpm with no acute ST segment changes. CBC with differential count 11.3 with hemoglobin 10.5 and platelet count of 450. Chemistries unremarkable. BUN 13 and creatinine 1.12. Troponin was normal at 6. Patient was given a milligram of Ativan because she was complaining of feeling anxious and she felt markedly improved after treatment. At this point she will be discharged to home. Clinically I do not feel she is having acute coronary syndrome. She has had significant recent workup. Clinically not consistent with PE and she is currently anticoagulated with Eliquis. Advised to follow-up with her primary care physician within next 3 to 5 days Lab Data Attestation: I reviewed the patient's lab results. Labs: Laboratory Results - last 24 hr 09/13/23 11:49 WBC 11.3 H RBC 4.04 L Hgb 10.5 L Hct 35.0 L MCV 86.6 MCH 26.0 L MCHC 30.0 L RDW Std Deviation 55.7 H RDW Coeff of Alfredo 17.3 H Plt Count 450 MPV 9.5 Immature Gran % (Auto) 0.500 Neut % (Auto) 71.7 H Lymph % (Auto) 18.2 L [place] % (Auto) 5.8 Eos % (Auto) 3.1 Baso % (Auto) 0.7 Absolute Neuts (auto) 8.1 H Absolute Lymphs (auto) 2.05 Nucleated RBC % 0 Sodium 137 Potassium 4.0 Chloride 106 Carbon Dioxide 23.0 Anion Gap 8 BUN 13 Creatinine 1.12 H Estim Creat Clear Calc 80.01 Est GFR (MDRD) Af Amer 65 Est GFR (MDRD) Non-Af 54 L BUN/Creatinine Ratio 11.6 Glucose 149 H Calcium 9.3 Troponin I High Sens 6 Radiography Diagnostic Testing: Clinical Impression(s) from Imaging Studies Chest X-Ray 09/13/23 12:04 IMPRESSION: Mild cardiomegaly. The lungs are clear. Electronically Signed: Seun Vieira MD at 12:13 EDT , 1 view chest x-ray obtained interpreted by myself as no evidence of infiltrate or pneumothorax or acute disease process. Radiology felt there was mild cardiomegaly. EKG Initial EKG: Attestation: I personally reviewed and interpreted this EKG as follows: Comments: Sinus rhythm with ventricular rate of 63 bpm with no acute ST segment changes Discharge Plan Triage Chief Complaint: Chest Pain ED Provider: Brianna Brewster Dx/Rx/DC Orders Clinical Impression: Chest pain, Anxiety Instructions: ED Anxiety Reaction, ED Chest Pain, Uncertain Cause Prescriptions: No Action budesonide-formoterol [Symbicort] 160-4.5 mcg/actuation HFA aerosol inhaler 2 puff INHALATION BID Trelegy Ellipta 100-62.5-25 mcg blister with device 1 inh INHALATION DAILY lorazepam 1 mg tablet 1 mg PO TID PRN (Reason: ANXIETY ) progesterone micronized 200 mg capsule 400 mg PO QHS cyclobenzaprine 5 mg tablet 5 mg PO Q8H atorvastatin 80 mg Tablet 80 mg PO DAILY metoclopramide HCl [Reglan] 10 mg tablet 10 mg PO Q6H PRN (Reason: NAUSEA AND VOMTING ) Qty: 20 0RF hydrocodone-acetaminophen 5-325 mg tablet 1 tab PO Q6H PRN PRN (Reason: Pain) 3 Days Qty: 10 0RF albuterol sulfate 90 mcg/actuation HFA aerosol inhaler 2 puff inhalation Q4H PRN (Reason: SHORTNESS OF BREATH/WHEEZING ) Emgality Syringe 120 mg/mL syringe 120 mg subcut Q30D isosorbide mononitrate 30 mg tablet extended release 24 hr 30 mg PO DAILY levothyroxine 88 mcg tablet 176 mcg PO DAILY trazodone 50 mg tablet 50 - 100 mg PO QHS atenolol 25 mg tablet 25 mg PO DAILY PRN (Reason: ANXIETY ) citalopram 40 mg tablet 40 mg PO DAILY valsartan 320 mg tablet 160 mg PO BID Qty: 90 3RF potassium chloride 10 mEq capsule, extended release 10 meq PO DAILY Qty: 90 3RF amlodipine 10 mg tablet 10 mg PO DAILY Qty: 90 3RF Primary Care Provider: Nasreen Sutton Referrals: Nasreen Sutton MD [Primary Care Provider] - 3-5 Days Print Language: Polish Disposition Disposition: Home, Self Care Discharge Date/Time: 09/13/23 12:48
--- NOTE | 2023-09-13 11:56 | ED.RN ---
this RN had an extensive conversation with pt. about her frequent ER visits. Pt. states she has not seen dr. prakash since 08/17 despite coming to the ER 4 times since then for SOB/breathing problems. Pt. states that Dr. prakash only wants to see her every so often. This RN stated pt. needed to call Dr. leary/ pcp office to f/u more frequesntly d/t her frequent ER visits.
[2023-09-13 11:57] LABS: Absolute Lymphocyte Count 2.05 X10^3/uL (0.83-4.51); Absolute Neutrophil Count 8.1 X10^3/uL (2.0-7.7); Basophil# 0.08 X10^3/uL; Basophil% 0.7 % (0-1); Eosinophil# 0.35 X10^3/uL; Eosinophils% 3.1 % (0-5); Hemoglobin 10.5 g/dL (12.0-15.0); Lymphocyte # 2.05 X10^3/ul (0.83-4.51); Lymphocyte % 18.2 % (19-41); Mean Corpuscular Volume 86.6 fL (81-99); Mean Platelet Vol. 9.5 fl (6.2-12.0); Monocyte# 0.65 X10^3/uL; Monocyte% 5.8 % (0-10); NRBC Flagged by Analyzer 0 % (0-5); Neutrophil # 8.07 X10^3/uL (2.7-7.7); Neutrophil % 71.7 % (47-70); Platelet Count 450 K/mm3 (150-450); RBC Distribution Width CV 17.3 % (11.6-14.6); RBC Distribution Width SD 55.7 fl (35.1-43.9); Red Blood Count 4.04 M/mm3 (4.2-5.4); White Blood Count 11.3 K/mm3 (4.4-11.0)
--- NOTE | 2023-09-13 12:04 | RAD_ITS ---
STUDY: X-RAY CHEST REASON FOR EXAM: Female, 53 years old. Chest pain TECHNIQUE: Single AP portable view of the chest. COMPARISON: Comparison is made with prior study dated September 01, 2023. FINDINGS: EKG electrodes are seen. The lungs are clear and expanded. There is no demonstrated pleural abnormality. There is mild cardiac enlargement. Normal mediastinum and kumar. Normal visualized pulmonary arteries. Normal visualized aortic arch and descending thoracic aorta. Normal visualized thoracic spine. Normal visualized ribs, clavicles, and shoulders. There is no demonstrated abnormality of the visualized soft tissue structures of the upper abdomen. RAD/Chest 1 View (Portable) IMPRESSION: Mild cardiomegaly. The lungs are clear. Electronically Signed: Seun Vieira MD at 12:13 EDT ,
[2023-09-13 12:15] LABS: Anion Gap 8 (5-15); BUN 13 mg/dL (7-18); BUN/Creat Ratio 11.6 RATIO (10-20); Calcium,Total 9.3 mg/dL (8.5-10.1); Chloride 106 mmol/L (98-107); Creatinine, Serum 1.12 mg/dL (0.55-1.02); EST Glomerular Filtration Rate 54 mL/min (>60); Est Glom Filt Rate - Afr Amer 65 mL/min (>60); Estimated Creatinine Clearance 80.01 ml/min; Glucose 149 mg/dL (74-106); Sodium Level 137 mmol/L (136-145); Troponin-I HS (w/2H Reflex) 6 pg/mL (3.0-54.0)
[2023-09-13] MEDS: LORazepam 2 MG/ML Syringe 1 MG IV (12:23)
[2023-09-13 12:46] VITALS: BP 129/79; PULSE 62; RESP 16; TEMP 36.2; O2SAT 97
[2023-09-13 13:55] LABS: Reflex Troponin-HS? (from REC) Y
== END 2023-09-13 12:48 | disposition home or self-care (01) ==
PROVIDERS: Emergency Provider Emergency Medicine; PCP Family Medicine; Visit Provider Emergency Medicine
DX: R07.89 Other chest pain (principal); J44.9 Chronic obstructive pulmonary disease, unspecified; E11.22 Type 2 diabetes mellitus with diabetic chronic kidney disease; I12.9 Hypertensive chronic kidney disease with stage 1 through stage 4 chronic kidney disease, or unspecified chronic kidney disease; E78.00 Pure hypercholesterolemia, unspecified; N18.9 Chronic kidney disease, unspecified; F41.9 Anxiety disorder, unspecified; Z79.01 Long term (current) use of anticoagulants; Z79.899 Other long term (current) drug therapy; Z86.711 Personal history of pulmonary embolism; Z82.49 Family history of ischemic heart disease and other diseases of the circulatory system
CPT/HCPCS: 71045; 80048; 84484; 85025; 93005; 96361; 96374; 99283; J7030; A4216

== ENCOUNTER 2023-09-16 17:17 | Emergency (ER) | payer MEDICARE, MEDICAID, SELFPAY ==
[2023-09-16 17:17] VITALS: BP 135/80; PULSE 80; RESP 16; TEMP 36.6; O2SAT 97
--- NOTE | 2023-09-16 17:20 | RAD_ITS ---
STUDY: X-RAY - LEFT KNEE REASON FOR EXAM: Female, 53 years old. FALL TECHNIQUE: 4 view(s) of the knee. COMPARISON: None. FINDINGS: Normal visualized distal femur. Normal visualized proximal tibia and fibula. Normal proximal tibiofibular articulation. There is mild degenerative arthrosis of the medial femorotibial compartment. Normal lateral femorotibial compartment. Normal patellofemoral articulation. The soft tissue structures are unremarkable. RAD/Knee 4 or More Views IMPRESSION: Degenerative arthrosis. Electronically Signed: Casey Pichardo MD at 17:47 EDT ,
--- NOTE | 2023-09-16 17:20 | RAD_ITS ---
STUDY: X-RAY - LEFT ANKLE REASON FOR EXAM: Female, 53 years old. Fell out of a anna @ [employer]. Left ankle and knee pain. Also neck pain TECHNIQUE: 3 view(s) of the ankle. COMPARISON: None. FINDINGS: Normal visualized distal tibia and fibula. Normal medial and lateral malleoli. Normal tibiotalar articulation and ankle mortise. 1.2 cm os trigonum. Normal visualized talus and calcaneus. Small plantar calcaneal enthesophyte. The visualized subtalar, talonavicular, calcaneocuboid and tarsal articulations are normal. The soft tissue structures are unremarkable. RAD/Ankle min 3 Views IMPRESSION: Normal x-ray examination of the ankle. Electronically Signed: Casey Pichardo MD at 17:48 EDT ,
[2023-09-16] MEDS: Ibuprofen 600 MG Tablet PO (20:02)
[2023-09-16 20:05] VITALS: BP 168/98; PULSE 78; RESP 16; TEMP 37.1; O2SAT 98
--- NOTE | 2023-09-16 21:14 | ED.VIS.LOWEX ---
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 Patient states that she was eating at [employer] with her mother when her mother got up to throw her trash away. Patient decided I be good time to throw trash away as well so she set up in the next thing she knows she fell down. She states she had pain in the anterior left knee and anterior left ankle and had some discomfort in the neck. EMS was called and she was transported to the emergency department. The patient still does not know what made her fall. Patient states her neck pain is significantly better. She continues to note pain in the knee and the ankle. [facility] Medical History Walker as ambulation aid Ambulates with cane Low iron History of renal disease High cholesterol DVT (deep venous thrombosis) PONV (postoperative nausea and vomiting) Stroke/cerebrovascular accident Sleep apnea Fall Cardiology follow-up encounter Scalp hematoma Pulmonary embolism Post-menopausal Thyroid disease Injury of head and neck Dietary restriction Difficulty swallowing BiPAP (biphasic positive airway pressure) dependence COPD (chronic obstructive pulmonary disease) Shortness of breath on exertion Leg cramps History of pain when walking History of edema History of echocardiogram History of stress test Syncope Abnormal glucose Noncompliance DAVY treated with BiPAP UTI (urinary tract infection) Vitamin D deficiency Restless leg syndrome Vitamin B12 deficiency Iron deficiency anemia History of chronic back pain Wears glasses Arthritis Non-smoker Hydronephrosis Depression Anemia Migraine headache Chronic kidney disease Diabetes mellitus Gout Celiac disease Hyperlipidemia GERD (gastroesophageal reflux disease) Dyspnea on exertion Chest pain Hypersomnia Cardiac murmur Microcytic anemia Hypertension Morbid obesity with BMI of 40.0-44.9, adult Asthma Hypothyroidism Anxiety Home Medications ?Medication ?Instructions ?Recorded ?Last Taken ?Type citalopram 40 mg tablet 40 mg PO DAILY DEPRESSION/ANXIETY 07/27/19 08/22/23 History budesonide-formoterol HFA 160 2 puff inhalation BID COPD 04/02/20 08/22/23 History mcg-4.5 mcg/actuation aerosol inhaler (Symbicort) lorazepam 1 mg tablet 1 mg PO TID PRN ANXIETY 05/04/22 02/08/23 History progesterone micronized 200 mg 400 mg PO QHS HORMONES 10/11/22 08/22/23 History capsule metoclopramide HCl 10 mg tablet 10 mg PO Q6H PRN NAUSEA AND 01/07/23 Unknown Rx (Reglan) VOMTING #20 tabs atorvastatin 80 mg tablet 80 mg PO DAILY CHOLESTEROL 02/10/23 08/22/23 History cyclobenzaprine 5 mg tablet 5 mg PO Q8H MUSCLE SPASMS 02/10/23 08/22/23 History potassium chloride 10 mEq 10 meq PO DAILY SUPPLEMENT #90 05/02/23 08/22/23 Rx capsule,extended release caps fluticasone fur. 100 mcg-umeclid 1 inh inhalation DAILY COPD 06/20/23 08/22/23 History 62.5 mcg-vilant 25 mcg inhalat.powder (Trelegy Ellipta) albuterol sulfate 90 mcg/actuation 2 puff inhalation Q4H PRN 07/29/23 08/22/23 History aerosol inhaler SHORTNESS OF BREATH/WHEEZING galcanezumab-gnlm 120 mg/mL 120 mg subcut Q30D 07/29/23 Unknown History subcutaneous syringe (Emgality) isosorbide mononitrate 30 mg 30 mg PO DAILY HEART 07/29/23 08/22/23 History tablet,extended release 24 hr levothyroxine 88 mcg tablet 176 mcg PO DAILY THYROID 07/29/23 08/22/23 History trazodone 50 mg tablet 50 - 100 mg PO QHS SLEEP 07/29/23 08/22/23 History atenolol 25 mg tablet 25 mg PO DAILY PRN ANXIETY 08/23/23 08/22/23 History hydrocodone-acetaminophen 5-325mg 1 tab PO Q6H PRN PRN Pain 3 days 09/09/23 Unknown Rx 5mg-325mg #10 TABLETS amlodipine 10 mg tablet 10 mg PO DAILY BLOOD PRESSURE #90 09/12/23 Unknown Rx tabs valsartan 320 mg tablet 160 mg (1/2 x 320 mg) PO BID BLOOD 09/13/23 Unknown Rx PRESSURE #90 tabs Allergy/AdvReac Type Severity Reaction Status Date / Time hydrochlorothiazide AdvReac Intermediate Contributes Verified 09/16/23 17:17 to gout naproxen (From Naprosyn) AdvReac Intermediate Nausea Verified 09/16/23 17:17 aspirin AdvReac Nausea Verified 09/16/23 17:17 Family History Father , Age 72 Hypertension Mother CAD (coronary artery disease) Myocardial infarction, Onset Age: 55 Hypertension Sister CAD (coronary artery disease) Brother Cancer Surgical History History of cardiac catheterization History of History of carpal tunnel surgery of right wrist History of carpal tunnel surgery of left wrist Hx of cystoscopy History of left heart catheterization (11/11/20) history of uterine ablation Social History household members: none housing: apartment Smoking Status: Never smoker alcohol intake: never substance use type: does not use caffeine: No ROS ROS ED Constitutional Constitutional ED: Denies chills or weight loss Eyes Eyes: Denies change in vision or diplopia ENT ENT ED: Denies ear pain, rhinorrhea or sore throat Cardiovascular Cardiovascular: Denies chest pain, orthopnea, palpitations or racing heartbeat Respiratory/Chest Respiratory/Chest: Denies cough, dyspnea or orthopnea Gastrointestinal Gastrointestinal: Denies abdominal pain, diarrhea, nausea or vomiting Genitourinary Genitourinary ED: Denies dysuria, hematuria or urinary frequency Musculoskeletal Musculoskeletal: Reports neck pain and other Details: Left knee left ankle pain ; Denies arthralgias, back pain or myalgias Integumentary Denies abscess or rash Neurologic Neurologic: Denies headache(s) or weakness Psychiatric Psychiatric: Denies anxiety, depression, suicidal ideation or suicidal thoughts Endocrine Endocrinology: Denies polydipsia, polyphagia or polyuria Allergic/Immunologic Allergic/Immunologic ED: Denies mouth swelling, tongue swelling or urticaria EXAM Physical Exam Const Vital Signs: 09/16/23 17:17 09/16/23 20:05 Temperature 97.8 F 98.7 F Temperature Source Temporal Pulse Rate 80 78 Respiratory Rate 16 16 Blood Pressure 135/80 H 168/98 H Blood Pressure Mean 98 121 Pulse Ox 97 98 Oxygen Delivery Method Room Air Positive well nourished, well developed and obese General Appearance ED: well developed and NAD Nutritional Appearance: obese HEENT Reports normocephalic, head/scalp atraumatic and moist mucous membranes Eyes PERRL and EOMs intact bilaterally Neck full ROM, no lymphadenopathy, supple and no JVD Neck Narrative: Tender to palpation over the musculature on the right. No significant swelling or ecchymosis. No carotid bruits strong carotid upstroke no midline tenderness Resp normal respiratory effort and clear to auscultation bilaterally Cardio regular rate, regular rhythm and no murmurs GI normal to inspection, nondistended, normoactive bowel sounds and non-tender Palpation: soft Back/Spine no CVA tenderness and normal ROM Extremity Extremity Narrative: There is a small area of ecchymosis in the infrapatellar region anteriorly. Ligaments appear stable. No palpable joint effusion. There is tenderness to palpation over the anterior left ankle. No significant swelling noted. Neurovascular intact. General Extremety ED: Negative for edema General Extremity: Negative for edema Neuro oriented x3 and CN's II-XII intact bilaterally Sensorium / Orientation: alert Motor Exam: strength 5/5 throughout Psych mental status grossly normal Mood & Affect: Negative for depressed or tearful Skin no rashes or lesions noted and no wounds MDM MDM MDM Narrative Medical decision making narrative: Differential diagnosis includes fracture sprain strain ligamentous tear or meniscal injury My independent interpretation of the plain films of the left knee is no acute fracture no effusion. My independent interpretation of the plain films of the left ankle is no acute fracture. Patient will have an Cristian wrap placed on the ankle. Would recommend ice anti-inflammatories or Tylenol. I do not believe neck imaging is needed at this time. Follow-up primary care if not improving return if worsening History & Record Review Discussion w/independent historian: Patient Additional record(s) reviewed:: Prior ED visit Radiography Diagnostic Testing: Clinical Impression(s) from Imaging Studies Ankle X-Ray 09/16/23 17:20 IMPRESSION: Normal x-ray examination of the ankle. Electronically Signed: Casey Pichardo MD at 17:48 EDT , Knee X-Ray 09/16/23 17:20 IMPRESSION: Degenerative arthrosis. Electronically Signed: Casey Pichardo MD at 17:47 EDT , Discharge Plan Triage Chief Complaint: Lower Extremity Injury ED Provider: Nicolás Nieves Dx/Rx/DC Orders Clinical Impression: Fall, Contusion of knee, left, Left ankle sprain Prescriptions: No Action budesonide-formoterol [Symbicort] 160-4.5 mcg/actuation HFA aerosol inhaler 2 puff INHALATION BID Trelegy Ellipta 100-62.5-25 mcg blister with device 1 inh INHALATION DAILY lorazepam 1 mg tablet 1 mg PO TID PRN (Reason: ANXIETY ) progesterone micronized 200 mg capsule 400 mg PO QHS cyclobenzaprine 5 mg tablet 5 mg PO Q8H atorvastatin 80 mg Tablet 80 mg PO DAILY metoclopramide HCl [Reglan] 10 mg tablet 10 mg PO Q6H PRN (Reason: NAUSEA AND VOMTING ) Qty: 20 0RF hydrocodone-acetaminophen 5-325 mg tablet 1 tab PO Q6H PRN PRN (Reason: Pain) 3 Days Qty: 10 0RF albuterol sulfate 90 mcg/actuation HFA aerosol inhaler 2 puff inhalation Q4H PRN (Reason: SHORTNESS OF BREATH/WHEEZING ) Emgality Syringe 120 mg/mL syringe 120 mg subcut Q30D isosorbide mononitrate 30 mg tablet extended release 24 hr 30 mg PO DAILY levothyroxine 88 mcg tablet 176 mcg PO DAILY trazodone 50 mg tablet 50 - 100 mg PO QHS atenolol 25 mg tablet 25 mg PO DAILY PRN (Reason: ANXIETY ) citalopram 40 mg tablet 40 mg PO DAILY potassium chloride 10 mEq capsule, extended release 10 meq PO DAILY Qty: 90 3RF amlodipine 10 mg tablet 10 mg PO DAILY Qty: 90 3RF valsartan 320 mg tablet 160 mg PO BID Qty: 90 3RF Primary Care Provider: Nasreen Sutton Referrals: Nasreen Sutton MD [Primary Care Provider] - Print Language: Indonesian Disposition Disposition: Home, Self Care Discharge Date/Time: 09/16/23 20:06
== END 2023-09-16 20:06 | disposition home or self-care (01) ==
PROVIDERS: Emergency Provider Emergency Medicine; PCP Family Medicine; Visit Provider Emergency Medicine
DX: S93.402A Sprain of unspecified ligament of left ankle, initial encounter (principal); J44.9 Chronic obstructive pulmonary disease, unspecified; S90.02XA Contusion of left ankle, initial encounter; W18.39XA Other fall on same level, initial encounter; Y92.511 Restaurant or cafe as the place of occurrence of the external cause; Y93.89 Activity, other specified; Y99.8 Other external cause status; I12.9 Hypertensive chronic kidney disease with stage 1 through stage 4 chronic kidney disease, or unspecified chronic kidney disease; E78.00 Pure hypercholesterolemia, unspecified; N18.9 Chronic kidney disease, unspecified; Z79.51 Long term (current) use of inhaled steroids; Z79.899 Other long term (current) drug therapy
CPT/HCPCS: 73564; 73610; 99282

== ENCOUNTER 2023-09-30 18:24 | Inpatient (IN) | payer MEDICARE, MEDICAID, SELFPAY ==
[2023-09-30] VITALS (10 sets, daily range): BP systolic 122–162; BP diastolic 60–97; PULSE 94–104; RESP 16–33; TEMP 35.9–37.2; O2SAT 86–99; BMI 52.0
--- NOTE | 2023-09-30 18:54 | EKG12_ITS ---
Test Reason : CP Blood Pressure : / mmHG Vent. Rate : 104 BPM Atrial Rate : 104 BPM P-R Int : 174 ms QRS Dur : 092 ms QT Int : 346 ms P-R-T Axes : 053 016 074 degrees QTc Int : 454 ms Sinus tachycardia Nonspecific ST and T wave abnormality Abnormal ECG When compared with ECG of 30-SEP-2023 19:04, MANUAL COMPARISON REQUIRED, DATA IS UNCONFIRMED Confirmed by Wes Medeiros ([id number]), editorial assistant SONJA ZABALA ([id number]) on 10/05/2023 9:16:59 AM Referred By: CAROLINE Confirmed By:Wes Medeiros
--- NOTE | 2023-09-30 19:00 | EKG12_ITS ---
Test Reason : DYSRHYTHMIA Blood Pressure : / mmHG Vent. Rate : 101 BPM Atrial Rate : 101 BPM P-R Int : 152 ms QRS Dur : 088 ms QT Int : 368 ms P-R-T Axes : 041 006 038 degrees QTc Int : 477 ms Sinus tachycardia Nonspecific ST and T wave abnormality Abnormal ECG Confirmed by Wes Medeiros ([id number]), editor house organ SONJA ZABALA ([id number]) on 10/03/2023 2:05:14 PM Referred By: KAROLINA Confirmed By:Wes Medeiros
--- NOTE | 2023-09-30 19:25 | RAD_ITS ---
EXAM: XR CHEST, 2 VIEWS CLINICAL INDICATION: chest pain TECHNIQUE: Frontal and lateral views of the chest. COMPARISON: 09/13/2023 FINDINGS: LUNGS AND PLEURAL SPACES: Unremarkable. No consolidation or edema. No pneumothorax. No effusion. HEART: Unremarkable. Cardiac silhouette not enlarged. MEDIASTINUM: Central airways and mediastinal contour are unremarkable. BONES/JOINTS: Unremarkable. No acute fracture. SOFT TISSUES: Unremarkable. RAD/Chest PA and Lateral IMPRESSION: No radiographic evidence of acute cardiopulmonary disease. Electronically Signed: Solomon Corona MD at 20:10 EDT ,
[2023-09-30 19:33] LABS: Allen Test Positive; Base Excess 4 mmol/L (-2 to +2); Bicarbonate 27.7 mmol/L (22-26); Blood Gas Specimen Type ART; Mode Not entered; O2 Delivery Device Room Air; PO2 59 mmHG (75-100); SITE L Radial; SO2 91 % (95-99); Total Carbon Dioxide 29 mmol/L; pCO2 40.7 mmHg (35-45); pH 7.44 (7.35-7.45)
[2023-09-30 19:47] LABS: Absolute Neutrophil Count 11.4 X10^3/uL (2.0-7.7); Basophil% 0.7 % (0-1); Eosinophil# 0.33 X10^3/uL; Eosinophils% 2.3 % (0-5); Hematocrit 37.3 % (37-47); Hemoglobin 11.3 g/dL (12.0-15.0); Lymphocyte % 11.2 % (19-41); Mean Corp Hgb Conc 30.3 g/dL (32-36); Mean Corpuscular Hgb 26.3 pg (27.0-32.0); Mean Corpuscular Volume 86.7 fL (81-99); Mean Platelet Vol. 9.9 fl (6.2-12.0); Monocyte# 0.79 X10^3/uL; Monocyte% 5.5 % (0-10); NRBC Flagged by Analyzer 0 % (0-5); Neutrophil # 11.44 X10^3/uL (2.7-7.7); Neutrophil % 79.7 % (47-70); Platelet Count 381 K/mm3 (150-450); RBC Distribution Width SD 56.7 fl (35.1-43.9); White Blood Count 14.3 K/mm3 (4.4-11.0)
[2023-09-30 19:58] LABS: Prothrombin Time (Protime)PT. 13.4 SECONDS (11.7-14.9)
[2023-09-30 20:00] LABS: Anion Gap 5 (5-15); BUN 11 mg/dL (7-18); BUN/Creat Ratio 7.9 RATIO (10-20); Calcium,Total 9.7 mg/dL (8.5-10.1); Chloride 107 mmol/L (98-107); EST Glomerular Filtration Rate 42 mL/min (>60); Est Glom Filt Rate - Afr Amer 51 mL/min (>60); Glucose 138 mg/dL (74-106); Potassium 3.3 mmol/L (3.5-5.1); Sodium Level 139 mmol/L (136-145); Troponin-I HS (w/2H Reflex) 14 pg/mL (3.0-54.0)
[2023-09-30 20:08] LABS: BNP,B-Type NATRIURETIC PEPTIDE 13.9 pg/mL (0-100)
[2023-09-30] MEDS: Bumetanide 1 MG/4 ML Vial 0.5 MG IV (20:57)
[2023-09-30] MEDS: Potassium Chloride Oral Tablet 20 MEQ 60 MEQ PO (20:57)
--- NOTE | 2023-09-30 20:58 | EX.ED.DYSGE1 ---
HPI History of Present Illness Chief Complaint: Shortness of Breath Narrative Narrative: Patient is a 53-year-old female with a previous history of DVT on Eliquis, hypercholesterolemia, DAVY, COPD on BiPAP at night, depression, chronic kidney disease, type 2 diabetes who presents to the emergency department with a chief complaint of worsening shortness of breath and bilateral lower extremity swelling. Patient states that for the past few days she has noted that she has had worsening shortness of breath and she states that she has not been able to use her BiPAP at night secondary to her not feeling well and having difficulty breathing with this on. She also noted that her legs have been progressively swelling as well prompting her to come here for further evaluation management. Patient denies any recent sick contacts. Patient did note that with minimal exertion she becomes very short of breath. [facility] Medical History Walker as ambulation aid Ambulates with cane Low iron History of renal disease High cholesterol DVT (deep venous thrombosis) PONV (postoperative nausea and vomiting) Stroke/cerebrovascular accident Sleep apnea Fall Cardiology follow-up encounter Scalp hematoma Pulmonary embolism Post-menopausal Thyroid disease Injury of head and neck Dietary restriction Difficulty swallowing BiPAP (biphasic positive airway pressure) dependence COPD (chronic obstructive pulmonary disease) Shortness of breath on exertion Leg cramps History of pain when walking History of edema History of echocardiogram History of stress test Syncope Abnormal glucose Noncompliance DAVY treated with BiPAP UTI (urinary tract infection) Vitamin D deficiency Restless leg syndrome Vitamin B12 deficiency Iron deficiency anemia History of chronic back pain Wears glasses Arthritis Non-smoker Hydronephrosis Depression Anemia Migraine headache Chronic kidney disease Diabetes mellitus Gout Celiac disease Hyperlipidemia GERD (gastroesophageal reflux disease) Dyspnea on exertion Chest pain Hypersomnia Cardiac murmur Microcytic anemia Hypertension Morbid obesity with BMI of 40.0-44.9, adult Asthma Hypothyroidism Anxiety Home Medications ?Medication ?Instructions ?Recorded ?Last Taken ?Type citalopram 40 mg tablet 40 mg PO DAILY DEPRESSION/ANXIETY 07/27/19 08/22/23 History budesonide-formoterol HFA 160 2 puff inhalation BID COPD 04/02/20 08/22/23 History mcg-4.5 mcg/actuation aerosol inhaler (Symbicort) lorazepam 1 mg tablet 1 mg PO TID PRN ANXIETY 05/04/22 02/08/23 History progesterone micronized 200 mg 400 mg PO QHS HORMONES 10/11/22 08/22/23 History capsule metoclopramide HCl 10 mg tablet 10 mg PO Q6H PRN NAUSEA AND 01/07/23 Unknown Rx (Reglan) VOMTING #20 tabs atorvastatin 80 mg tablet 80 mg PO DAILY CHOLESTEROL 02/10/23 08/22/23 History cyclobenzaprine 5 mg tablet 5 mg PO Q8H MUSCLE SPASMS 02/10/23 08/22/23 History potassium chloride 10 mEq 10 meq PO DAILY SUPPLEMENT #90 05/02/23 08/22/23 Rx capsule,extended release caps fluticasone fur. 100 mcg-umeclid 1 inh inhalation DAILY COPD 06/20/23 08/22/23 History 62.5 mcg-vilant 25 mcg inhalat.powder (Trelegy Ellipta) albuterol sulfate 90 mcg/actuation 2 puff inhalation Q4H PRN 07/29/23 08/22/23 History aerosol inhaler SHORTNESS OF BREATH/WHEEZING galcanezumab-gnlm 120 mg/mL 120 mg subcut Q30D 07/29/23 Unknown History subcutaneous syringe (Emgality) isosorbide mononitrate 30 mg 30 mg PO DAILY HEART 07/29/23 08/22/23 History tablet,extended release 24 hr levothyroxine 88 mcg tablet 176 mcg PO DAILY THYROID 07/29/23 08/22/23 History trazodone 50 mg tablet 50 - 100 mg PO QHS SLEEP 07/29/23 08/22/23 History atenolol 25 mg tablet 25 mg PO DAILY PRN ANXIETY 08/23/23 08/22/23 History hydrocodone-acetaminophen 5-325mg 1 tab PO Q6H PRN PRN Pain 3 days 09/09/23 Unknown Rx 5mg-325mg #10 TABLETS amlodipine 10 mg tablet 10 mg PO DAILY BLOOD PRESSURE #90 09/12/23 Unknown Rx tabs valsartan 320 mg tablet 160 mg (1/2 x 320 mg) PO BID BLOOD 09/13/23 Unknown Rx PRESSURE #90 tabs diclofenac sodium 3 % topical gel 1 ea topical BID PRN PRN skin 09/30/23 Unknown History irritation gabapentin 300 mg capsule 300 mg PO TID 09/30/23 Unknown History galcanezumab-gnlm 120 mg/mL 120 mg subcut QMONTH 09/30/23 Unknown History subcutaneous pen injector (Emgality Pen) Allergy/AdvReac Type Severity Reaction Status Date / Time hydrochlorothiazide AdvReac Intermediate Contributes Verified 09/30/23 18:25 to gout naproxen (From Naprosyn) AdvReac Intermediate Nausea Verified 09/30/23 18:25 aspirin AdvReac Nausea Verified 09/30/23 18:25 Family History Father , Age 72 Hypertension Mother CAD (coronary artery disease) Myocardial infarction, Onset Age: 55 Hypertension Sister CAD (coronary artery disease) Brother Cancer Surgical History History of cardiac catheterization History of History of carpal tunnel surgery of right wrist History of carpal tunnel surgery of left wrist Hx of cystoscopy History of left heart catheterization (11/11/20) history of uterine ablation Social History household members: none housing: apartment Smoking Status: Never smoker alcohol intake: never substance use type: does not use caffeine: No ROS ROS ED ROS Narrative Constitutional: Denies any fevers, chills, headaches, lightheadedness Eyes: Denies change in vision double vision blurry vision Cardiovascular: Denies chest pain or palpitations Respiratory: Complains of shortness of breath as noted above denies coughing wheezing Abdomen: Denies abdominal pain nausea vomit diarrhea : Denies any urinary symptoms Neurological: Denies numbness, weakness, tingling Musculoskeletal: Complains of bilateral lower extremity swelling as noted above Skin: Denies rashes or lesions EXAM Physical Exam Narrative Exam Narrative: General: Patient lying in bed rest comfortably did not appear to be in acute distress Head: Atraumatic, normocephalic Eyes: PERRL bilaterally, EOMI bilaterally, no conjunctival injection noted Neck: Soft, supple, trachea midline Cardiovascular: Regular rate and rhythm no murmurs gallops rubs noted Respiratory: Clear to auscultation bilaterally no rales rhonchi or wheeze noted Abdomen: No tenderness palpation, soft, nondistended Extremities: Patient has 2+ pitting edema in the bilateral lower extremities, +4/5 strength noted in the bilateral upper and lower extremities Neurological: Patient was following commands knew that she was at [facility] the year is 2023 Skin: Warm, dry, intact Const Vital Signs: 09/30/23 18:25 09/30/23 18:28 09/30/23 18:30 Temperature 96.9 F L 97.9 F Temperature Source Temporal Temporal Pulse Rate 104 H 99 102 H Respiratory Rate 16 22 H 33 H Respiratory Effort Respiratory Depth Respiratory Pattern Blood Pressure 143/95 H 150/60 H Blood Pressure Mean 111 90 Pulse Ox 99 92 86 Oxygen Delivery Method Room Air Room Air Room Air Oxygen Flow Rate (L/min) 09/30/23 18:30 09/30/23 19:02 09/30/23 19:07 Temperature Temperature Source Pulse Rate 97 Respiratory Rate 20 H Respiratory Effort Normal Respiratory Depth Respiratory Pattern Normal Blood Pressure Blood Pressure Mean Pulse Ox 92 Oxygen Delivery Method Nasal Cannula Room Air Oxygen Flow Rate (L/min) 2 09/30/23 19:11 09/30/23 19:13 09/30/23 19:28 Temperature 96.8 F L Temperature Source Temporal Pulse Rate 100 101 H Respiratory Rate 20 H 25 H Respiratory Effort Short of Breath Respiratory Depth Normal Respiratory Pattern Tachypnea Blood Pressure 122/80 H Blood Pressure Mean 94 Pulse Ox 94 93 Oxygen Delivery Method Room Air Room Air Room Air Oxygen Flow Rate (L/min) 09/30/23 19:55 09/30/23 20:00 09/30/23 21:00 Temperature 96.8 F L 96.7 F L Temperature Source Temporal Pulse Rate 102 H 100 94 Respiratory Rate 25 H 23 H 20 H Respiratory Effort Respiratory Depth Respiratory Pattern Blood Pressure 122/80 H 124/88 H 162/97 H Blood Pressure Mean 94 100 118 Pulse Ox 93 95 94 Oxygen Delivery Method Room Air Room Air Oxygen Flow Rate (L/min) 09/30/23 21:00 Temperature 98 F Temperature Source Temporal Pulse Rate 99 Respiratory Rate 20 H Respiratory Effort Respiratory Depth Respiratory Pattern Blood Pressure 162/97 H Blood Pressure Mean 118 Pulse Ox 95 Oxygen Delivery Method Room Air Oxygen Flow Rate (L/min) MDM MDM MDM Narrative Medical decision making narrative: Patient is a 53-year-old female who presented to the emergency department with chief complaint of dyspnea on exertion and bilateral lower extremity swelling. Patient will have a workup performed here on the differential diagnose includes Melamin to pneumonia, CHF, ACS, PE although do feel this less likely as she is chronically anticoagulated on Eliquis not missing doses. Once workup is obtained reviewed she will be reevaluated. Patient CBC was significant for leukocytosis of 14,000 however comparing her previous blood draw she chronically has a white blood cell count that is elevated, hemoglobin stable 11.3, platelet count normal at 381. Patient's INR normal 1, arterial blood gas showed pH 7.44 with a CO2 of 29. Patient's sodium normal 139, potassium was low indicating hypokalemia at 3.3 she was given 60 mill equivalents of potassium replacement, creatinine was roughly around her baseline as she has underlying chronic kidney disease at 1.40. Patient's troponin normal at 14, BMP normal at 13.9 although this is likely falsely low secondary to body habitus and her clinical findings. Patient's x-ray of her chest reviewed as well and showed no radiographic evidence of acute cardiopulmonary disease. At this point in time the patient will warrant admission to the hospital for her hypoxia as she is not normally on nasal cannula chronically and she is requiring this in the emergency department. Patient be given Bumex given her underlying chronic kidney disease. Patient case was discussed with hospitalist who accept patient for admission. Patient notified with all question concerns answered. Lab Data Labs: Laboratory Results - last 24 hr 09/30/23 18:57 WBC 14.3 H RBC 4.30 Hgb 11.3 L Hct 37.3 MCV 86.7 MCH 26.3 L MCHC 30.3 L RDW Std Deviation 56.7 H RDW Coeff of Alfredo 18.0 H Plt Count 381 MPV 9.9 Immature Gran % (Auto) 0.600 Neut % (Auto) 79.7 H Lymph % (Auto) 11.2 L Wallace % (Auto) 5.5 Eos % (Auto) 2.3 Baso % (Auto) 0.7 Absolute Neuts (auto) 11.4 H Absolute Lymphs (auto) 1.60 Nucleated RBC % 0 PT 13.4 INR 1.0 APTT 27.0 Sodium 139 Potassium 3.3 L Chloride 107 Carbon Dioxide 27.0 Anion Gap 5 BUN 11 Creatinine 1.40 H Est GFR (MDRD) Af Amer 51 L Est GFR (MDRD) Non-Af 42 L BUN/Creatinine Ratio 7.9 L Glucose 138 H Calcium 9.7 Troponin I High Sens 14 B-Natriuretic Peptide 13.9 ABG Data ABG results: ABG 08/02/24 19:29 Specimen Type ART Sample Site L Radial pH 7.44 Bicarbonate Actual 27.7 H Total CO2 29 Base Excess 4 H O2 Saturation 91 L ABG pCO2 40.7 ABG pO2 59 L Justin Test Positive O2 Delivery Device Room Air Vent Mode Not entered Radiography Diagnostic Testing: Clinical Impression(s) from Imaging Studies Chest X-Ray 09/30/23 19:25 IMPRESSION: No radiographic evidence of acute cardiopulmonary disease. Electronically Signed: Solomon Corona MD at 20:10 EDT , Discharge Plan Triage Chief Complaint: Shortness of Breath Other Complaint: Edema ED Provider: Toney Venegas Dx/Rx/DC Orders Prescriptions: No Action budesonide-formoterol [Symbicort] 160-4.5 mcg/actuation HFA aerosol inhaler 2 puff INHALATION BID Trelegy Ellipta 100-62.5-25 mcg blister with device 1 inh INHALATION DAILY lorazepam 1 mg tablet 1 mg PO TID PRN (Reason: ANXIETY ) progesterone micronized 200 mg capsule 400 mg PO QHS cyclobenzaprine 5 mg tablet 5 mg PO Q8H atorvastatin 80 mg Tablet 80 mg PO DAILY metoclopramide HCl [Reglan] 10 mg tablet 10 mg PO Q6H PRN (Reason: NAUSEA AND VOMTING ) Qty: 20 0RF hydrocodone-acetaminophen 5-325 mg tablet 1 tab PO Q6H PRN PRN (Reason: Pain) 3 Days Qty: 10 0RF albuterol sulfate 90 mcg/actuation HFA aerosol inhaler 2 puff inhalation Q4H PRN (Reason: SHORTNESS OF BREATH/WHEEZING ) Emgality Syringe 120 mg/mL syringe 120 mg subcut Q30D isosorbide mononitrate 30 mg tablet extended release 24 hr 30 mg PO DAILY levothyroxine 88 mcg tablet 176 mcg PO DAILY trazodone 50 mg tablet 50 - 100 mg PO QHS atenolol 25 mg tablet 25 mg PO DAILY PRN (Reason: ANXIETY ) diclofenac sodium 3 % gel 1 ea topical BID PRN PRN (Reason: skin irritation) gabapentin 300 mg capsule 300 mg PO TID Emgality Pen 120 mg/mL pen injector 120 mg subcut QMONTH citalopram 40 mg tablet 40 mg PO DAILY potassium chloride 10 mEq capsule, extended release 10 meq PO DAILY Qty: 90 3RF amlodipine 10 mg tablet 10 mg PO DAILY Qty: 90 3RF valsartan 320 mg tablet 160 mg PO BID Qty: 90 3RF Primary Care Provider: Nasreen Sutton Referrals: Nasreen Sutton MD [Primary Care Provider] - Print Language: Australian
[2023-09-30 21:11] LABS: Reflex Troponin-HS? (from REC) Y
--- NOTE | 2023-09-30 21:11 | PCM.HP.STD ---
[facility] - General General Date of Service: 09/30/23 Chief Complaint: shortness of breath [facility] Narrative COURTNEY CARMEN, is a 53 F who presents with shortness of breath. Is a 53-year-old female with history of coronary disease, CKD, hypothyroidism presents with increasing shortness of breath over the past few weeks. States that her lower extremities have become more edematous and when she ambulates, she gets short of breath. She presented to emergency room where her chest x-ray was limited due to her body habitus was read as unremarkable. She was noted to be hypoxic at 86% on room air at 1 point. Patient had lower extremity edema and received a dose of Bumex. Since then, she was on oxygen but then taken off and her sats have been around 94%. She is also complaining of headache that is frontal. It was preceded by scotoma. That developed while she was here but she been doing that for the past few days. [facility] Medical History (Updated 09/30/23 @ 21:[address] Anam Roldan, DO) Walker as ambulation aid Ambulates with cane Low iron History of renal disease High cholesterol DVT (deep venous thrombosis) PONV (postoperative nausea and vomiting) Stroke/cerebrovascular accident Sleep apnea Fall Cardiology follow-up encounter Scalp hematoma Pulmonary embolism Post-menopausal Thyroid disease Injury of head and neck Dietary restriction Difficulty swallowing BiPAP (biphasic positive airway pressure) dependence COPD (chronic obstructive pulmonary disease) Shortness of breath on exertion Leg cramps History of pain when walking History of edema History of echocardiogram History of stress test Syncope Abnormal glucose Noncompliance DAVY treated with BiPAP UTI (urinary tract infection) Vitamin D deficiency Restless leg syndrome Vitamin B12 deficiency Iron deficiency anemia History of chronic back pain Wears glasses Arthritis Non-smoker Hydronephrosis Depression Anemia Migraine headache Chronic kidney disease Diabetes mellitus Gout Celiac disease Hyperlipidemia GERD (gastroesophageal reflux disease) Dyspnea on exertion Chest pain Hypersomnia Cardiac murmur Microcytic anemia Hypertension Morbid obesity with BMI of 40.0-44.9, adult Asthma Hypothyroidism Anxiety Home Medications ?Medication ?Instructions ?Recorded ?Last Taken ?Type citalopram 40 mg tablet 40 mg PO DAILY DEPRESSION/ANXIETY 07/27/19 08/22/23 History budesonide-formoterol HFA 160 2 puff inhalation BID COPD 04/02/20 08/22/23 History mcg-4.5 mcg/actuation aerosol inhaler (Symbicort) lorazepam 1 mg tablet 1 mg PO TID PRN ANXIETY 05/04/22 02/08/23 History progesterone micronized 200 mg 400 mg PO QHS HORMONES 10/11/22 08/22/23 History capsule metoclopramide HCl 10 mg tablet 10 mg PO Q6H PRN NAUSEA AND 01/07/23 Unknown Rx (Reglan) VOMTING #20 tabs atorvastatin 80 mg tablet 80 mg PO DAILY CHOLESTEROL 02/10/23 08/22/23 History cyclobenzaprine 5 mg tablet 5 mg PO Q8H MUSCLE SPASMS 02/10/23 08/22/23 History potassium chloride 10 mEq 10 meq PO DAILY SUPPLEMENT #90 05/02/23 08/22/23 Rx capsule,extended release caps fluticasone fur. 100 mcg-umeclid 1 inh inhalation DAILY COPD 06/20/23 08/22/23 History 62.5 mcg-vilant 25 mcg inhalat.powder (Trelegy Ellipta) albuterol sulfate 90 mcg/actuation 2 puff inhalation Q4H PRN 07/29/23 08/22/23 History aerosol inhaler SHORTNESS OF BREATH/WHEEZING galcanezumab-gnlm 120 mg/mL 120 mg subcut Q30D 07/29/23 Unknown History subcutaneous syringe (Emgality) isosorbide mononitrate 30 mg 30 mg PO DAILY HEART 07/29/23 08/22/23 History tablet,extended release 24 hr levothyroxine 88 mcg tablet 176 mcg PO DAILY THYROID 07/29/23 08/22/23 History trazodone 50 mg tablet 50 - 100 mg PO QHS SLEEP 07/29/23 08/22/23 History atenolol 25 mg tablet 25 mg PO DAILY PRN ANXIETY 08/23/23 08/22/23 History hydrocodone-acetaminophen 5-325mg 1 tab PO Q6H PRN PRN Pain 3 days 09/09/23 Unknown Rx 5mg-325mg #10 TABLETS amlodipine 10 mg tablet 10 mg PO DAILY BLOOD PRESSURE #90 09/12/23 Unknown Rx tabs valsartan 320 mg tablet 160 mg (1/2 x 320 mg) PO BID BLOOD 09/13/23 Unknown Rx PRESSURE #90 tabs diclofenac sodium 3 % topical gel 1 ea topical BID PRN PRN skin 09/30/23 Unknown History irritation gabapentin 300 mg capsule 300 mg PO TID 09/30/23 Unknown History galcanezumab-gnlm 120 mg/mL 120 mg subcut QMONTH 09/30/23 Unknown History subcutaneous pen injector (Emgality Pen) Allergy/AdvReac Type Severity Reaction Status Date / Time hydrochlorothiazide AdvReac Intermediate Contributes Verified 09/30/23 18:25 to gout naproxen (From Naprosyn) AdvReac Intermediate Nausea Verified 09/30/23 18:25 aspirin AdvReac Nausea Verified 09/30/23 18:25 Family History Father , Age 72 Hypertension Mother CAD (coronary artery disease) Myocardial infarction, Onset Age: 55 Hypertension Sister CAD (coronary artery disease) Brother Cancer Surgical History History of cardiac catheterization History of History of carpal tunnel surgery of right wrist History of carpal tunnel surgery of left wrist Hx of cystoscopy History of left heart catheterization (11/11/20) history of uterine ablation Social History household members: none housing: apartment Smoking Status: Never smoker alcohol intake: never substance use type: does not use caffeine: No ROS ROS Narrative She thinks that she has lost weight she checks her weight every few weeks. All review of systems were negative except as mentioned above in the history of present illness and the other review of systems. Vital Signs Vital Signs Vital Signs: 09/30/23 18:25 09/30/23 18:28 09/30/23 18:30 Temperature 36.1 C L 36.6 C Temperature Source Temporal Temporal Pulse Rate 104 H 99 102 H Respiratory Rate 16 22 H 33 H Respiratory Effort Respiratory Depth Respiratory Pattern Blood Pressure 143/95 H 150/60 H Blood Pressure Mean 111 90 Pulse Ox 99 92 86 Oxygen Delivery Method Room Air Room Air Room Air Oxygen Flow Rate (L/min) 09/30/23 18:30 09/30/23 19:02 09/30/23 19:07 Temperature Temperature Source Pulse Rate 97 Respiratory Rate 20 H Respiratory Effort Normal Respiratory Depth Respiratory Pattern Normal Blood Pressure Blood Pressure Mean Pulse Ox 92 Oxygen Delivery Method Nasal Cannula Room Air Oxygen Flow Rate (L/min) 2 09/30/23 19:11 09/30/23 19:13 09/30/23 19:28 Temperature 36.0 C L Temperature Source Temporal Pulse Rate 100 101 H Respiratory Rate 20 H 25 H Respiratory Effort Short of Breath Respiratory Depth Normal Respiratory Pattern Tachypnea Blood Pressure 122/80 H Blood Pressure Mean 94 Pulse Ox 94 93 Oxygen Delivery Method Room Air Room Air Room Air Oxygen Flow Rate (L/min) 09/30/23 19:55 09/30/23 20:00 09/30/23 21:00 Temperature 36.0 C L 35.9 C L Temperature Source Temporal Pulse Rate 102 H 100 94 Respiratory Rate 25 H 23 H 20 H Respiratory Effort Respiratory Depth Respiratory Pattern Blood Pressure 122/80 H 124/88 H 162/97 H Blood Pressure Mean 94 100 118 Pulse Ox 93 95 94 Oxygen Delivery Method Room Air Room Air Oxygen Flow Rate (L/min) 09/30/23 21:00 Temperature 36.6 C Temperature Source Temporal Pulse Rate 99 Respiratory Rate 20 H Respiratory Effort Respiratory Depth Respiratory Pattern Blood Pressure 162/97 H Blood Pressure Mean 118 Pulse Ox 95 Oxygen Delivery Method Room Air Oxygen Flow Rate (L/min) Results Lab / Micro Data Attestation: I reviewed the patient's lab results. 09/30/23 18:57 09/30/23 18:57 Labs: Laboratory Results - last 24 hr 09/30/23 18:57: WBC 14.3 H, RBC 4.30, Hgb 11.3 L, Hct 37.3, MCV 86.7, MCH 26.3 L, MCHC 30.3 L, RDW Std Deviation 56.7 H, RDW Coeff of Alfredo 18.0 H, Plt Count 381, MPV 9.9, Immature Gran % (Auto) 0.600, Neut % (Auto) 79.7 H, Lymph % (Auto) 11.2 L, [place] % (Auto) 5.5, Eos % (Auto) 2.3, Baso % (Auto) 0.7, Absolute Neuts (auto) 11.4 H, Absolute Lymphs (auto) 1.60, Nucleated RBC % 0, PT 13.4, INR 1.0, APTT 27.0, Sodium 139, Potassium 3.3 L, Chloride 107, Carbon Dioxide 27.0, Anion Gap 5, BUN 11, Creatinine 1.40 H, Est GFR (MDRD) Af Amer 51 L, Est GFR (MDRD) Non-Af 42 L, BUN/Creatinine Ratio 7.9 L, Glucose 138 H, Calcium 9.7, Troponin I High Sens 14, B-Natriuretic Peptide 13.9 Micro: Microbiology 09/30/23 18:57 Mucosa - Nose SARS-CoV-2, Influenza & RSV (PCR) - Final ABG Data ABG results: ABG 09/30/23 19:29 Specimen Type ART Sample Site L Radial pH 7.44 Bicarbonate Actual 27.7 H Total CO2 29 Base Excess 4 H O2 Saturation 91 L ABG pCO2 40.7 ABG pO2 59 L Justin Test Positive O2 Delivery Device Room Air Vent Mode Not entered EKG Initial EKG: Attestation: I personally reviewed and interpreted this EKG as follows: Prior EKG tracings: available for review EKG Rhythm Intrepretation: Sinus Rhythm (Low voltage) Imaging Radiology Impression Chest X-Ray 09/30/23 19:25 IMPRESSION: No radiographic evidence of acute cardiopulmonary disease. Electronically Signed: Solomon Corona MD at 20:10 EDT , Assessment & Plan Assessment/Plan (1) CHF exacerbation: PLAN: Acute HFpEF. EF of 35% on 2D echocardiogram from September 07, 2023. No measured weight here on this admission yet but patient states that she has increasing lower extremity edema. Patient was transiently hypoxic but since improved. Chest x-ray appears unremarkable but concern that patient with her morbid obesity, sleep apnea and increased lower extremity edema is having exacerbation of COPD despite the negative BNP and chest x-ray. I feel the patient would benefit from further diuresis with IV furosemide. Plan: Diuresis with IV furosemide. Continue with valsartan Will fluid restrict. No need to check echocardiogram as it was just done roughly 20 days ago. (2) Migraine headache: PLAN: Acute on chronic migraine. Patient takes galcanezumab for prophylactic treatment. Patient is experiencing frontal headache that was preceded by visual scotoma which is also ongoing. Patient sees a neurologist in [facility] that manages her migraine symptoms. His migraine may have been exacerbated by the fact that she has not been able to use her CPAP over the past few days. Plan: Will give her a dose of 10 mg of IV dexamethasone. If that does not seem to have any effect, then we can give her a dose of sumatriptan and daily as needed. Patient does not have any evidence of any cardiac ischemia at this time so I think that would be fine. PLAN: Plan Chronic conditions Morbid obesity: Complicates care and recovery Hypothyroidism: Continue levothyroxine Depression: Continue escitalopram Hypertension: With patient lower extremity edema but now hold off on her amlodipine for now though I feel that most of her symptoms are probably more heart failure related rather than due to amlodipine. Continue with valsartan. VTE prophylaxis with enoxaparin CODE STATUS: Addressed with patient. Patient wishes to be DNR Comfort Care arrest no intubation. Patient understands that she can change her mind about her CODE STATUS at any point. Charges/Coding Visit Charges Inpatient E&M: 30239 Init Hosp L3
[2023-09-30 22:40] LABS: Troponin-I HS 19 pg/mL (3.0-54.0)
[2023-09-30] MEDS: Ipratropium/Albuterol Sulfate 3 ML AMPUL.NEB INHALATION (22:52)
[2023-09-30] MEDS: Losartan Potassium 50 MG Tablet PO (22:54)
[2023-09-30] MEDS: traZODone 50 MG Tablet PO (22:54)
[2023-09-30] MEDS: cycloBENZAPRine HCl 5 MG TABLET PO (22:54)
[2023-09-30] MEDS: Gabapentin 300 MG Capsule PO (22:54)
[2023-09-30] MEDS: dexAMETHasone 10 MG/ML Vial IV (22:56)
[2023-09-30] MEDS: Enoxaparin 40 MG/0.4 ML Syringe SC (22:56)
--- NOTE | 2023-09-30 23:08 | EKG12_ITS ---
Test Reason : CP Blood Pressure : / mmHG Vent. Rate : 103 BPM Atrial Rate : 103 BPM P-R Int : 132 ms QRS Dur : 070 ms QT Int : 350 ms P-R-T Axes : 022 000 031 degrees QTc Int : 458 ms Poor data quality, interpretation may be adversely affected Sinus tachycardia Low voltage QRS Nonspecific ST abnormality Abnormal ECG Confirmed by MIGUEL GONZALEZ, MAGALI ([id number]), editorial assistant ZANDER MAYER ([id number]) on 11/07/2023 2:48:44 PM Referred By: Confirmed By:MAGALI RIVERA MD
[2023-09-30] MEDS: oxyCODONE 5 MG Tablet PO (23:53)
[2023-10-01] VITALS (9 sets, daily range): BP systolic 109–136; BP diastolic 79–91; PULSE 85–111; RESP 16–24; TEMP 36.1–36.5; O2SAT 90–97
[2023-10-01 01:29] LABS: Troponin-I HS 22 pg/mL (3.0-54.0)
[2023-10-01] MEDS: Acetaminophen 325 MG Tablet 650 MG PO ×2 (04:21→20:53)
[2023-10-01] MEDS: Levothyroxine 88 MCG Tablet 176 MCG PO (05:41)
[2023-10-01] MEDS: cycloBENZAPRine HCl 5 MG TABLET PO ×3 (05:41→22:30)
[2023-10-01] MEDS: Gabapentin 300 MG Capsule PO ×3 (05:42→22:33)
[2023-10-01 06:51] LABS: Absolute Lymphocyte Count 0.94 X10^3/uL (0.83-4.51); Absolute Neutrophil Count 13.8 X10^3/uL (2.0-7.7); Basophil# 0.06 X10^3/uL; Basophil% 0.4 % (0-1); Eosinophil# 0.01 X10^3/uL; Eosinophils% 0.1 % (0-5); Hematocrit 35.2 % (37-47); Hemoglobin 10.9 g/dL (12.0-15.0); Lymphocyte # 0.94 X10^3/ul (0.83-4.51); Lymphocyte % 6.3 % (19-41); Mean Corpuscular Hgb 26.6 pg (27.0-32.0); Mean Corpuscular Volume 85.9 fL (81-99); Mean Platelet Vol. 10.1 fl (6.2-12.0); Monocyte# 0.12 X10^3/uL; Monocyte% 0.8 % (0-10); NRBC Flagged by Analyzer 0 % (0-5); Neutrophil # 13.77 X10^3/uL (2.7-7.7); Neutrophil % 91.7 % (47-70); Platelet Count 359 K/mm3 (150-450); RBC Distribution Width CV 17.9 % (11.6-14.6)
[2023-10-01] MEDS: Ipratropium/Albuterol Sulfate 3 ML AMPUL.NEB INHALATION ×3 (07:12→19:52)
[2023-10-01] MEDS: Budesonide Respules 0.5 MG/2 ML AMPUL.NEB. INHALATION ×2 (07:12→19:52)
[2023-10-01 07:19] LABS: Anion Gap 6 (5-15); BUN 12 mg/dL (7-18); BUN/Creat Ratio 7.8 RATIO (10-20); Calcium,Total 9.1 mg/dL (8.5-10.1); Chloride 108 mmol/L (98-107); Cholesterol 194 mg/dL (200); Creatinine, Serum 1.53 mg/dL (0.55-1.02); EST Glomerular Filtration Rate 38 mL/min (>60); Est Glom Filt Rate - Afr Amer 46 mL/min (>60); Estimated Creatinine Clearance 58.95 ml/min; Glucose 213 mg/dL (74-106); High Density Lipoprotein 34 mg/dL; Potassium 4.1 mmol/L (3.5-5.1); Sodium Level 139 mmol/L (136-145); Thyroid Stim Hormone (TSH) 6.74 uIU/mL (0.358-3.74); Triglycerides 88 mg/dL; Very Low Density Lipoprotein 18 mg/dL (5-40)
--- NOTE | 2023-10-01 09:20 | CASEMGMT ---
INEZ SHORE Face to Face with patient for initial transition planning/care coordination assessment. INEZ SHORE introduced self and role at [facility]. Patient lying in bed, alert and oriented. Patient willing to participate in assessment and is able to answer all questions appropriately. Care providers, pharmacy, and demographics verified. Lace: 13 Strata: 3 PCP: Herman Specialists: Luisana, pain; Jacky, migraine; Kal, regulatory internship; Preferred Pharmacy: [facility] Insurance: [facility] Dual Prescription Benefit: yes Living Will/HPOA: none LNOK: (), mother Living Arrangements: Patient lives alone in a first floor apartment with no steps to enter. Patient states she is independent at home. Transportation: self, mother DME/HHC: Patient has shower chair, raised toilet, cane, walker, grab bars, pulse ox, bipap at home. Patient has had CCN in the past. No previous SNF. Patient wishes to discharge home, will monitor progress with therapy. INEZ SHORE discussed possible HHC vs SNF pending progress with therapy, patient voiced understanding. Patient states she has no further needs or concerns at this time. CM to follow for discharge planning needs that may arise. Disposition Plan: TBD, anticipate HHC vs SNF pending pending progress with therapy. Franci FUNG, RN, CM
[2023-10-01] MEDS: Enoxaparin 40 MG/0.4 ML Syringe SC ×2 (11:48→22:28)
[2023-10-01] MEDS: Citalopram 40 MG TABLET PO (11:48)
[2023-10-01] MEDS: Furosemide 40 MG/4 ML Vial IV (11:48)
[2023-10-01] MEDS: Potassium Chloride Oral Tablet 10 MEQ PO (11:49)
[2023-10-01] MEDS: Losartan Potassium 50 MG Tablet PO ×2 (11:49→22:29)
[2023-10-01] MEDS: Isosorbide Mononitrate 30 MG Tablet PO (11:49)
[2023-10-01] MEDS: 0.9% Saline Lock 10 ML Syringe IV (11:50)
[2023-10-01] MEDS: SUMAtriptan 6 MG/0.5 ML Vial SC (12:10)
--- NOTE | 2023-10-01 12:13 | CASEMGMT ---
Social Work SW spoke w/pt briefly, to see if she would want to consider going somewhere for rehab at discharge. Pt states she just wants to go home. SW remains available should the plan change. ANGELO Mei
[2023-10-01] MEDS: Metoclopramide 10 MG Tablet PO (14:18)
--- NOTE | 2023-10-01 14:20 | PN_ITS ---
Subjective Subjective Patient seen and examined. She had no active complaints. She denied any cough, chest pain, palpitations, dizziness, nausea, vomiting or any other symptoms. Review of systems was otherwise negative. She has remained hemodynamically stable. Objective Data Objective Data Vital Signs: Vital Signs Temp Pulse Resp BP Pulse Ox O2 Del Method O2 Flow Rate 96.9 F L 93 18 136/91 H 94 Nasal Cannula 2 10/01/23 10:15 10/01/23 13:19 10/01/23 13:19 10/01/23 10:15 10/01/23 10:45 10/01/23 10:15 10/01/23 10:45 Oxygen Flow Rate (L/min) 2 Oxygen Delivery Method Nasal Cannula Weight: 303 lb 2.17 oz Body Mass Index (BMI) 52.0 Intake & Output: Intake and Output for Last 24 Hours 09/29/23 09/30/23 10/01/23 23:59 23:59 23:59 Intake Total 200 / 200 610 / 610 Output Total 450 / 450 Balance 200 / 200 160 / 160 Lab / Micro Data 10/01/23 06:30 10/01/23 06:30 Labs: Laboratory Results - last 24 hr 09/30/23 18:57: WBC 14.3 H, RBC 4.30, Hgb 11.3 L, Hct 37.3, MCV 86.7, MCH 26.3 L , MCHC 30.3 L, RDW Std Deviation 56.7 H, RDW Coeff of Alfredo 18.0 H, Plt Count 381, MPV 9.9, Immature Gran % (Auto) 0.600, Neut % (Auto) 79.7 H, Lymph % (Auto) 11.2 L, Sampson % (Auto) 5.5, Eos % (Auto) 2.3, Baso % (Auto) 0.7, Absolute Neuts (auto) 11.4 H, Absolute Lymphs (auto) 1.60, Nucleated RBC % 0, PT 13.4, INR 1.0, APTT 27.0, Sodium 139, Potassium 3.3 L, Chloride 107, Carbon Dioxide 27.0, Anion Gap 5, BUN 11, Creatinine 1.40 H, Est GFR (MDRD) Af Amer 51 L, Est GFR (MDRD) Non-Af 42 L, BUN/Creatinine Ratio 7.9 L, Glucose 138 H, Calcium 9.7, Troponin I High Sens 14, B-Natriuretic Peptide 13.9 09/30/23 21:47: Troponin I High Sens 19 10/01/23 00:55: Troponin I High Sens 22 10/01/23 06:30: WBC 15.0 H, RBC 4.10 L, Hgb 10.9 L, Hct 35.2 L, MCV 85.9, MCH 26.6 L, MCHC 31.0 L, RDW Std Deviation 56.0 H, RDW Coeff of Alfredo 17.9 H, Plt Count 359, MPV 10.1, Immature Gran % (Auto) 0.700, Neut % (Auto) 91.7 H, Lymph % (Auto) 6.3 L, Sampson % (Auto) 0.8, Eos % (Auto) 0.1, Baso % (Auto) 0.4, Absolute Neuts (auto) 13.8 H, Absolute Lymphs (auto) 0.94, Nucleated RBC % 0, Sodium 139, Potassium 4.1, Chloride 108 H, Carbon Dioxide 25.0, Anion Gap 6, BUN 12, C reatinine 1.53 H, Estim Creat Clear Calc 58.95, Est GFR (MDRD) Af Amer 46 L, Est GFR (MDRD) Non-Af 38 L, BUN/Creatinine Ratio 7.8 L, Glucose 213 H, Calcium 9.1, Triglycerides 88, Cholesterol 194, LDL Cholesterol 142 H, VLDL Cholesterol 18, H DL Cholesterol 34 L, TSH 6.74 H Micro: Microbiology 09/30/23 18:57 Mucosa - Nose SARS-CoV-2, Influenza & RSV (PCR) - Final ABG Data ABG results: ABG 09/30/23 19:29 Specimen Type ART Sample Site L Radial pH 7.44 Bicarbonate Actual 27.7 H Total CO2 29 Base Excess 4 H O2 Saturation 91 L ABG pCO2 40.7 ABG pO2 59 L Justin Test Positive O2 Delivery Device Room Air Vent Mode Not entered Radiography Diagnostic Testing: Radiology Impression Chest X-Ray 09/30/23 19:25 IMPRESSION: No radiographic evidence of acute cardiopulmonary disease. Electronically Signed: Solomon Corona MD at 20:10 EDT , Physical Exam Const alert, oriented x3 and no apparent distress Constitutional Narrative: super morbid obesity General Appearance: cooperative HEENT normocephalic, moist oral mucous membranes and oropharynx normal Eyes PERRL and EOMs intact bilaterally Neck no lymphadenopathy and supple Lymph Lymphatic: no lymphadenopathy noted and no lymphedema noted Resp normal respiratory effort, normal air movement and clear to auscultation bilaterally Cardio regular rate, regular rhythm, S1 normal heart sound and S2 normal heart sound GI normal to inspection, nondistended, normoactive bowel sounds, soft to palpation, non-tender and non-distended Extremity normal capillary refill, no clubbing, cyanosis or edema and no calf tenderness General Extremity: no tenderness to palpation of joints or extremities Skin General Skin Exam: no breakdown Neuro CN's II-XII intact bilaterally, no focal motor deficits, no sensory deficits noted and deep tendon reflexes 2+ bilaterally Motor Exam: strength 5/5 throughout and general weakness Psych thought process normal and cooperative Appearance: appropriate Assessment & Plan Assessment/Plan (1) CHF exacerbation: PLAN: Plan #Hypoxia due to acute exacerbation of HFrEF * Has known EF of 35% foam 2D echo done on September 07, 2023. * Hypoxia resolved on admission. Chest x-ray was negative and she did not have any elevated BNP level. * She is however being diuresed with IV Lasix 40 mg twice daily. On valsartan. * Monitor intake and output. Fluid restriction 1500 cc daily. * Will get respiratory panel in light of negative chest x-ray and BNP also not been elevated. * COVID, influenza and RSV rapid screen was negative. #Acute on chronic migraine: * Headache is improved. She sees a neurologist in [place]. She was given a dose of steroids on admission for the headache. * On rimegapant prn. * Will monitor. # CKD stage IIIb: * Creatinine is 1.53. Baseline creatinine appears to fluctuate. * It was around 1.1 just in July 2023 but historically has been between 1.2-1.4. * She is on Lasix as well which may have caused further elevated BUN/creatinine. * Will monitor closely. * Will cut down Lasix 40 mg daily IV. * #Hypothyroidism: On Synthroid #Hypertension: On amlodipine and valsartan #Depression: Escitalopram #Super morbid obesity: BMI is 62. Complicates acute care, expected recovery and prognosis. #Hyperlipidemia: On statin #COPD. Not in exacerbation. Breathing treatments bronchodilators. DVT prophylaxis: Lovenox Charges/Coding Visit Charges Inpatient E&M: 09985 Subs Hosp L2
[2023-10-01] MEDS: oxyCODONE 5 MG Tablet PO (20:52)
[2023-10-01] MEDS: traZODone 50 MG Tablet PO (22:29)
[2023-10-01] MEDS: Atorvastatin Calcium 80 MG Tablet PO (22:30)
[2023-10-01] MEDS: LORazepam 1 MG Tablet PO (22:33)
[2023-10-02] VITALS (9 sets, daily range): BP systolic 105–143; BP diastolic 70–97; PULSE 80–106; RESP 14–20; TEMP 36.3–36.6; O2SAT 92–95
[2023-10-02] MEDS: Calcium Carbonate 500 MG Tablet 1000 MG PO (00:03)
[2023-10-02] MEDS: oxyCODONE 5 MG Tablet PO ×3 (01:35→13:24)
[2023-10-02] MEDS: Gabapentin 300 MG Capsule PO ×3 (05:25→20:14)
[2023-10-02] MEDS: Levothyroxine 100 MCG Tablet 200 MCG PO (05:27)
[2023-10-02] MEDS: cycloBENZAPRine HCl 5 MG TABLET PO ×3 (05:28→20:15)
[2023-10-02] MEDS: 0.9% Saline Lock 10 ML Syringe IV ×4 (05:28→16:09)
[2023-10-02 06:05] LABS: Absolute Lymphocyte Count 1.63 X10^3/uL (0.83-4.51); Absolute Neutrophil Count 15.9 X10^3/uL (2.0-7.7); Basophil# 0.03 X10^3/uL; Basophil% 0.2 % (0-1); Hematocrit 32.6 % (37-47); Hemoglobin 10.2 g/dL (12.0-15.0); Lymphocyte # 1.63 X10^3/ul (0.83-4.51); Lymphocyte % 8.6 % (19-41); Mean Corp Hgb Conc 31.3 g/dL (32-36); Mean Corpuscular Hgb 26.7 pg (27.0-32.0); Mean Corpuscular Volume 85.3 fL (81-99); Monocyte# 1.14 X10^3/uL; NRBC Flagged by Analyzer 0 % (0-5); Neutrophil # 15.93 X10^3/uL (2.7-7.7); Neutrophil % 84.6 % (47-70); Platelet Count 386 K/mm3 (150-450); RBC Distribution Width CV 18.1 % (11.6-14.6); Red Blood Count 3.82 M/mm3 (4.2-5.4); White Blood Count 18.9 K/mm3 (4.4-11.0)
[2023-10-02] MEDS: Acetaminophen 325 MG Tablet 650 MG PO ×3 (06:33→20:14)
[2023-10-02 06:42] LABS: Anion Gap 6 (5-15); BUN 14 mg/dL (7-18); BUN/Creat Ratio 10.9 RATIO (10-20); Calcium,Total 9.7 mg/dL (8.5-10.1); Chloride 106 mmol/L (98-107); Creatinine, Serum 1.28 mg/dL (0.55-1.02); EST Glomerular Filtration Rate 46 mL/min (>60); Est Glom Filt Rate - Afr Amer 56 mL/min (>60); Estimated Creatinine Clearance 70.47 ml/min; Glucose 169 mg/dL (74-106); Potassium 4.1 mmol/L (3.5-5.1); Sodium Level 141 mmol/L (136-145)
[2023-10-02] MEDS: Budesonide Respules 0.5 MG/2 ML AMPUL.NEB. INHALATION ×2 (07:08→18:45)
[2023-10-02] MEDS: Ipratropium/Albuterol Sulfate 3 ML AMPUL.NEB INHALATION ×2 (07:08→18:45)
[2023-10-02] MEDS: Losartan Potassium 50 MG Tablet PO ×2 (10:43→20:15)
[2023-10-02] MEDS: Citalopram 40 MG TABLET PO (10:44)
[2023-10-02] MEDS: Isosorbide Mononitrate 30 MG Tablet PO (10:44)
[2023-10-02] MEDS: Potassium Chloride Oral Tablet 10 MEQ PO (10:44)
[2023-10-02] MEDS: Furosemide 40 MG/4 ML Vial IV (10:45)
[2023-10-02] MEDS: Enoxaparin 40 MG/0.4 ML Syringe SC ×2 (10:45→20:20)
--- NOTE | 2023-10-02 10:51 | PN.HOSP_ITS ---
Reason for Visit Reason for Visit: Diagnoses Migraine, unspecified, not intractable, without status migrainosus (09/30/23) Heart failure, unspecified (09/30/23) Objective Data Objective Data Vital Signs: Vital Signs Temp Pulse Resp BP Pulse Ox O2 Del Method O2 Flow Rate 97.9 F 92 18 140/96 H 92 Room Air 3 10/02/23 10:40 10/02/23 10:40 10/02/23 10:40 10/02/23 10:40 10/02/23 10:40 10/02/23 10:40 10/02/23 07:09 Oxygen Flow Rate (L/min) 3 Oxygen Delivery Method Room Air Weight: 303 lb 2.17 oz Body Mass Index (BMI) 52.0 Intake & Output: Intake and Output for Last 24 Hours 09/30/23 10/01/23 10/02/23 23:59 23:59 23:59 Intake Total 200 / 200 1030 / 1030 100 / 100 Output Total 750 / 750 Balance 200 / 200 280 / 280 100 / 100 Lab / Micro Data 10/02/23 05:51 10/02/23 05:51 Labs: Laboratory Results - last 24 hr 10/02/23 05:51: WBC 18.9 H, RBC 3.82 L, Hgb 10.2 L, Hct 32.6 L, MCV 85.3, MCH 26.7 L, MCHC 31.3 L, RDW Std Deviation 56.0 H, RDW Coeff of Alfredo 18.1 H, Plt Count 386, MPV 10.0, Immature Gran % (Auto) 0.600, Neut % (Auto) 84.6 H, Lymph % (Auto) 8.6 L, [place] % (Auto) 6.0, Eos % (Auto) 0.0, Baso % (Auto) 0.2, Absolute Neuts (auto) 15.9 H, Absolute Lymphs (auto) 1.63, Nucleated RBC % 0, Sodium 141, Potassium 4.1, Chloride 106, Carbon Dioxide 29.0, Anion Gap 6, BUN 14, Creatinine 1.28 H, Estim Creat Clear Calc 70.47, Est GFR (MDRD) Af Amer 56 L , Est GFR (MDRD) Non-Af 46 L, BUN/Creatinine Ratio 10.9, Glucose 169 H, Calcium 9.7 Micro: Microbiology 10/01/23 14:51 Mucosa - Nasopharyngeal Respiratory Panel (PCR) - Final 09/30/23 18:57 Mucosa - Nose SARS-CoV-2, Influenza & RSV (PCR) - Final Physical Exam Narrative Seen and examined. Patient is still short of breath on CPAP. Leg swelling has gotten better. Physical exam General: Alert, Oriented x3, Cooperative. BMI 52.0 kg/m?, super morbid obesity HEENT: Atraumatic, PERRLA, EOMI, Normocephalic Oral: No Gingival or Mucosal Lesions/ Ulcerations Neck: Supple, No JVD, Negative Carotid Bruits Chest wall/Lungs: Air entry diminished in bilateral lung bases. On CPAP. Mild expiratory wheezing Cardiovascular: Regular rate, Regular Rhythm, Normal S1, Normal S2, No M/G/R Abdomen: Bowel Sounds Present, Soft, Non Tender, Non-Distended : No dysuria. No renal angle tenderness. No suprapubic tenderness. Extremities: Mild leg edema, Capillary Refill Less than 3 Seconds Skin: No rashes, No breakdown Musculoskeletal: No Tenderness to Palpation of Joints or Extremities Neurological: Cranial nerves II-XII grossly intact, DTR 2+/4. No acute focal neurological deficit. Psych/Mental Status: Flat affect Assessment & Plan Assessment/Plan (1) CHF exacerbation: PLAN: Plan #Hypoxia due to acute exacerbation of HFrEF * Has known EF of 35%, 2D echo done on September 07, 2023. * Hypoxia resolved on admission. Chest x-ray was negative and she did not have any elevated BNP level may be falsely low from super morbid obesity. * She is however being diuresed with IV Lasix 40 mg twice daily. On valsartan. * Monitor intake and output. Fluid restriction 1500 cc daily. * COVID, influenza and RSV rapid screen was negative. Respiratory panel negative. #Acute on chronic migraine: * Headache is improved. She sees a neurologist in [place]. She was given a dose of steroids on admission for the headache. * On rimegapant prn. * monitor. # CKD stage IIIb: * Creatinine is 1.53. Baseline creatinine appears to fluctuate. * It was around 1.1 just in July 2023 but historically has been between 1.2-1.4. * She is on Lasix as well which may have caused further elevated BUN/creatinine. * BUNs/creatinine 13/03.28. Continue Lasix 40 mg IV daily #Hypothyroidism: On Synthroid #Hypertension: On amlodipine and valsartan #Depression: Escitalopram #Super morbid obesity: BMI is 52. Complicates acute care, expected recovery and prognosis. #Hyperlipidemia: On statin #COPD. Not in exacerbation. Breathing treatments bronchodilators. DVT prophylaxis: Lovenox Charges/Coding Visit Charges Inpatient E&M: 11490 Subs Hosp L2
[2023-10-02] MEDS: SUMAtriptan 6 MG/0.5 ML Vial SC (10:52)
--- NOTE | 2023-10-02 11:00 | NURSING ---
This RN took over care at this time.
[2023-10-02] MEDS: LORazepam 1 MG Tablet PO (16:09)
[2023-10-02] MEDS: Ondansetron 4 MG/2 ML Vial IV (16:09)
[2023-10-02] MEDS: Atorvastatin Calcium 80 MG Tablet PO (20:15)
[2023-10-02] MEDS: traZODone 50 MG Tablet PO (20:15)
[2023-10-03] VITALS (12 sets, daily range): BP systolic 98–118; BP diastolic 58–80; PULSE 86–110; RESP 16–20; TEMP 36.7–37; O2SAT 84–98; BMI 50.8
[2023-10-03] MEDS: Levothyroxine 100 MCG Tablet 200 MCG PO (05:54)
[2023-10-03] MEDS: cycloBENZAPRine HCl 5 MG TABLET PO ×3 (05:54→21:31)
[2023-10-03] MEDS: Gabapentin 300 MG Capsule PO ×3 (05:54→22:31)
[2023-10-03 05:59] LABS: Absolute Lymphocyte Count 2.78 X10^3/uL (0.83-4.51); Absolute Neutrophil Count 8.4 X10^3/uL (2.0-7.7); Basophil# 0.08 X10^3/uL; Basophil% 0.7 % (0-1); Eosinophil# 0.07 X10^3/uL; Eosinophils% 0.6 % (0-5); Hematocrit 35.4 % (37-47); Hemoglobin 10.4 g/dL (12.0-15.0); Lymphocyte # 2.78 X10^3/ul (0.83-4.51); Lymphocyte % 22.6 % (19-41); Mean Corp Hgb Conc 29.4 g/dL (32-36); Mean Corpuscular Hgb 25.9 pg (27.0-32.0); Mean Corpuscular Volume 88.3 fL (81-99); Mean Platelet Vol. 10.1 fl (6.2-12.0); Monocyte% 7.3 % (0-10); NRBC Flagged by Analyzer 0 % (0-5); Neutrophil # 8.35 X10^3/uL (2.7-7.7); Platelet Count 403 K/mm3 (150-450); RBC Distribution Width SD 58.1 fl (35.1-43.9); Red Blood Count 4.01 M/mm3 (4.2-5.4); White Blood Count 12.3 K/mm3 (4.4-11.0)
[2023-10-03 06:22] LABS: Anion Gap 6 (5-15); BUN 24 mg/dL (7-18); BUN/Creat Ratio 15.9 RATIO (10-20); Calcium,Total 9.2 mg/dL (8.5-10.1); Chloride 102 mmol/L (98-107); Creatinine, Serum 1.51 mg/dL (0.55-1.02); EST Glomerular Filtration Rate 38 mL/min (>60); Est Glom Filt Rate - Afr Amer 46 mL/min (>60); Estimated Creatinine Clearance 59.73 ml/min; Glucose 122 mg/dL (74-106); Potassium 4.4 mmol/L (3.5-5.1); Sodium Level 138 mmol/L (136-145)
[2023-10-03] MEDS: Budesonide Respules 0.5 MG/2 ML AMPUL.NEB. INHALATION ×2 (07:09→19:42)
[2023-10-03] MEDS: Ipratropium/Albuterol Sulfate 3 ML AMPUL.NEB INHALATION ×3 (07:09→19:42)
--- NOTE | 2023-10-03 10:06 | RAD_ITS ---
STUDY: X-RAY - ABDOMEN/PELVIS REASON FOR EXAM: Female, 53 years old. Abdominal pain. TECHNIQUE: AP supine and decubitus views of the abdomen and pelvis. COMPARISON: None. FINDINGS: Normal visualized lung bases. Mild gaseous distention of distal transverse and descending colon. Air seen to the rectosigmoid. Moderate to marked amount of feces in the colon. No free air identified. The visualized liver, spleen and kidneys are grossly normal in size and morphology. Normal soft tissue structures. Normal visualized osseous structures. RAD/Abd Inc Decub and/or Erect IMPRESSION: Moderate amount of feces in the colon. No acute abnormality. Electronically Signed: Mat Barbosa MD at 14:42 EDT ,
[2023-10-03] MEDS: Enoxaparin 40 MG/0.4 ML Syringe SC ×2 (10:50→21:31)
[2023-10-03] MEDS: Citalopram 40 MG TABLET PO (10:51)
[2023-10-03] MEDS: Losartan Potassium 50 MG Tablet PO (10:51)
[2023-10-03] MEDS: Potassium Chloride Oral Tablet 10 MEQ PO (10:51)
[2023-10-03] MEDS: Furosemide 40 MG/4 ML Vial IV (10:52)
[2023-10-03] MEDS: 0.9% Saline Lock 10 ML Syringe IV (10:52)
[2023-10-03] MEDS: Isosorbide Mononitrate 30 MG Tablet PO (10:52)
--- NOTE | 2023-10-03 11:04 | CON.PCM.RE_ITS ---
<Statement entered by Margarita Maldonado MD - 10/05/23 15:27> Pt seen & evaluated w/LEIGH. I personally interviewed & exam the pt. I was involved in all aspects of pt's orders, interpretation of results & treatment Assessment & Plan Assessment/Plan (1) MARYANA (acute kidney injury): (2) Shortness of breath: PLAN: Plan This is a 53-year-old female with past medical history significant for hypertension, coronary disease, pulmonary embolism who presented emergency room with complaints of shortness of breath and edema of lower extremities. Patient also complaining of migraine headache. She was admitted for possible exacerbation CHF. BNP 13.9 on admission. Chest x-ray no radiographic evidence of acute cardiopulmonary disease on admission. Echo from August 2023: Normal LV size, EF 55%, left ventricular systolic function normal. Patient was given a dose of bumetanide IV in the ER with some improvement in breathing and swelling per patient. Nephrology consulted in view of elevated creatinine. Patient has had elevated creatinine since around 2019 with baseline creatinine ranging around 1.2 mg/dL but does have fluctuations in serum creatinine trends. Creatinine was 1.5 on admission, today her creatinine is 1.51. Potassium and bicarb normal. Volume status appears to have improved, no peripheral edema. Blood pressures are now on low side. Patient did receive dose of Lasix IV today. Will change Lasix to oral starting tomorrow. Will add holding parameters to losartan. BMP ordered for a.m. but if serum creatinine trending up may need to discontinue furosemide and/or losartan. Discussed with patient importance of avoiding NSAIDs. Will check a UA, urine protein creatinine ratio and renal ultrasound. Further orders forthcoming as hospitalization evolves, thank you for allowing us to participate in care of Ms. Gray. HPI Consult Data Date of Consult: 10/03/23 HPI Narrative HPI Narrative: COURTNEY GRAY, is a 53 F with past medical history significant for coronary artery disease, hypertension, anxiety/depression, pulmonary embolism, hypothyroidism who presented to the emergency room on September 29 with complaints of shortness of breath and worsening lower extremity edema. Initially patient hypoxic in the emergency room with pulse ox 86%. Patient did receive dose of IV Bumex in the ER, breathing and swelling per patient improved, patient admitted for further evaluation and treatment for exacerbation CHF. Nephrology consulted in view of elevated serum creatinine. Reviewing past creatinine trends, patient baseline creatinine has been ranging around 1.2 mg/dL with some minor fluctuations with creatinine up to 1.4-1.6. On hospital admission serum creatinine 1.5, creatinine improved to 1.28 yesterday and today her creatinine is at 1.51 mg/dL. Patient states prior to coming to the hospital she had been taking multiple doses ibuprofen and Tylenol for migraine daily. Denies any hematuria or dysuria. States appetite fair. No recent nausea, vomiting or diarrhea before hospitalization. [facility] Medical History (Updated 10/03/23 @ 12:07 by Anabela Carpio NP-C) Walker as ambulation aid Ambulates with cane Low iron History of renal disease High cholesterol DVT (deep venous thrombosis) PONV (postoperative nausea and vomiting) Stroke/cerebrovascular accident Sleep apnea [facility] follow-up encounter Scalp hematoma Pulmonary embolism Post-menopausal Thyroid disease Injury of head and neck Dietary restriction Difficulty swallowing BiPAP (biphasic positive airway pressure) dependence COPD (chronic obstructive pulmonary disease) Shortness of breath on exertion Leg cramps History of pain when walking History of edema History of echocardiogram History of stress test Syncope Abnormal glucose Noncompliance DAVY treated with BiPAP UTI (urinary tract infection) Vitamin D deficiency Restless leg syndrome Vitamin B12 deficiency Iron deficiency anemia History of chronic back pain Wears glasses Arthritis Non-smoker Hydronephrosis Depression Anemia Migraine headache Chronic kidney disease Diabetes mellitus Gout Celiac disease Hyperlipidemia GERD (gastroesophageal reflux disease) Dyspnea on exertion Chest pain Hypersomnia Cardiac murmur Microcytic anemia Hypertension Morbid obesity with BMI of 40.0-44.9, adult Asthma Hypothyroidism Anxiety Home Medications ?Medication ?Instructions ?Recorded ?Last Taken ?Type citalopram 40 mg tablet 40 mg PO DAILY DEPRESSION/ANXIETY 07/27/19 09/30/23 History budesonide-formoterol HFA 160 2 puff inhalation BID COPD 04/02/20 09/30/23 History mcg-4.5 mcg/actuation aerosol inhaler (Symbicort) lorazepam 1 mg tablet 1 mg PO TID PRN ANXIETY 05/04/22 02/08/23 History progesterone micronized 200 mg 400 mg PO QHS HORMONES 10/11/22 09/30/23 History capsule metoclopramide HCl 10 mg tablet 10 mg PO Q6H PRN NAUSEA AND 01/07/23 Unknown Rx (Reglan) VOMTING #20 tabs atorvastatin 80 mg tablet 80 mg PO DAILY CHOLESTEROL 12/14/23 08/02/24 History cyclobenzaprine 5 mg tablet 5 mg PO Q8H MUSCLE SPASMS 02/10/23 09/30/23 History potassium chloride 10 mEq 10 meq PO DAILY SUPPLEMENT #90 05/02/23 09/30/23 Rx capsule,extended release caps fluticasone fur. 100 mcg-umeclid 1 inh inhalation DAILY COPD 06/20/23 09/30/23 History 62.5 mcg-vilant 25 mcg inhalat.powder (Trelegy Ellipta) albuterol sulfate 90 mcg/actuation 2 puff inhalation Q4H PRN 07/29/23 08/22/23 History aerosol inhaler SHORTNESS OF BREATH/WHEEZING galcanezumab-gnlm 120 mg/mL 120 mg subcut Q30D migraines 07/29/23 Unknown History subcutaneous syringe (Emgality) isosorbide mononitrate 30 mg 30 mg PO DAILY HEART 07/29/23 09/30/23 History tablet,extended release 24 hr trazodone 50 mg tablet 50 - 100 mg PO QHS SLEEP 07/29/23 09/30/23 History atenolol 25 mg tablet 25 mg PO DAILY PRN ANXIETY 08/23/23 08/22/23 History amlodipine 10 mg tablet 10 mg PO DAILY BLOOD PRESSURE #90 09/12/23 09/30/23 Rx tabs valsartan 320 mg tablet 160 mg (1/2 x 320 mg) PO BID BLOOD 09/13/23 09/30/23 Rx PRESSURE #90 tabs diclofenac sodium 3 % topical gel 1 ea topical BID PRN PRN skin 09/30/23 Unknown History irritation gabapentin 300 mg capsule 300 mg PO TID pain 09/30/23 09/30/23 History galcanezumab-gnlm 120 mg/mL 120 mg subcut QMONTH migraine 09/30/23 Unknown History subcutaneous pen injector (Emgality Pen) calcium carbonate 1,000 mg PO Q6H PRN PRN heartburn 10/01/23 Unknown History levothyroxine 100 mcg tablet 200 mcg PO DAILY thyroid 10/01/23 09/30/23 History naratriptan 2.5 mg tablet 2.5 mg PO BID PRN migraines 10/01/23 Unknown History Allergy/AdvReac Type Severity Reaction Status Date / Time hydrochlorothiazide AdvReac Intermediate Contributes Verified 09/30/23 18:25 to gout naproxen (From Naprosyn) AdvReac Intermediate Nausea Verified 09/30/23 18:25 aspirin AdvReac Nausea Verified 09/30/23 18:25 Family History Father , Age 72 Hypertension Mother CAD (coronary artery disease) Myocardial infarction, Onset Age: 55 Hypertension Sister CAD (coronary artery disease) Brother Cancer Surgical History History of cardiac catheterization History of History of carpal tunnel surgery of right wrist History of carpal tunnel surgery of left wrist Hx of cystoscopy History of left heart catheterization (11/11/20) history of uterine ablation Social History household members: none housing: apartment Smoking Status: Never smoker alcohol intake: never substance use type: does not use caffeine: No ROS ROS Narrative As in HPI and past medical history Physical Exam Narrative Alert and oriented x 3, no apparent distress S1, S2, RRR Lung sounds clear anteriorly and posteriorly. No wheezes, rhonchi or rales noted Abdomen soft, rounded No pitting edema Lab / Micro Data 10/03/23 05:34 10/03/23 05:34 Labs: Laboratory Results - last 24 hr 10/03/23 05:34: WBC 12.3 H, RBC 4.01 L, Hgb 10.4 L, Hct 35.4 L, MCV 88.3, MCH 25.9 L, MCHC 29.4 L D, RDW Std Deviation 58.1 H, RDW Coeff of Alfredo 18.0 H, Plt Count 403, MPV 10.1, Immature Gran % (Auto) 0.800, Neut % (Auto) 68.0, Lymph % (Auto) 22.6, [place] % (Auto) 7.3, Eos % (Auto) 0.6, Baso % (Auto) 0.7, Absolute Neuts (auto) 8.4 H, Absolute Lymphs (auto) 2.78, Nucleated RBC % 0, Sodium 138, Potassium 4.4, Chloride 102, Carbon Dioxide 30.0, Anion Gap 6, BUN 24 H, C reatinine 1.51 H, Estim Creat Clear Calc 59.73, Est GFR (MDRD) Af Amer 46 L, Est GFR (MDRD) Non-Af 38 L, BUN/Creatinine Ratio 15.9, Glucose 122 H, Calcium 9.2
[2023-10-03] MEDS: SUMAtriptan 6 MG/0.5 ML Vial SC (11:20)
[2023-10-03] MEDS: Metoclopramide 10 MG Tablet PO (12:15)
[2023-10-03] MEDS: Calcium Carbonate 500 MG Tablet 1000 MG PO (12:15)
--- NOTE | 2023-10-03 12:18 | US_ITS ---
STUDY: RENAL ULTRASOUND - COMPLETE REASON FOR EXAM: Female, 53 years old. MARYANA TECHNIQUE: Ultrasound evaluation of the kidneys was performed with real-time and static poole-scale imaging. COMPARISON: CT of the abdomen August 12, 2023 FINDINGS: RIGHT KIDNEY: Normal location of the right kidney, which is normal in size. The right kidney measures 9.91 x 5.22 x 4.92 cm. There is a normal cortex of the right kidney. The renal cortex measures 1.3 cm. There is no right renal mass or cyst. There is a small subcentimeter hyperechoic focus possibly representing nonobstructing calculus versus lipomatous deposit. There is mild pelvocaliectasis possibly representing parapelvic cysts. DISTAL RIGHT URETER: There is non-visualization of the distal right ureter. There is no demonstrated right ureterovesical junction calculus. There is a visualized right ureteral jet. LEFT KIDNEY: Normal location of the left kidney, which is normal in size. The left kidney measures 11.13 x 1.82 x 5.33 cm. There is a normal cortex of the left kidney. The renal cortex measures 1.29 cm. There is no left renal mass or cyst. There are 2 subcentimeter hyperechoic foci possibly representing nonobstructing calculi or lipomatous deposits. There is mild pelvocaliectasis possibly representing parapelvic cysts. DISTAL LEFT URETER: There is non-visualization of the distal left ureter. There is no demonstrated left ureterovesical junction calculus. There is a visualized left ureteral jet. BLADDER: The distended urinary bladder has a volume of 607.52 ml. There is a normal wall thickness of the distended urinary bladder. There is no demonstrated mass within the urinary bladder. There are no demonstrated bladder calculi. Parapelvic cysts are not changed since previous study. The possible tiny calculi would be a new finding US/Kidney and Bladder IMPRESSION: Findings consistent with bilateral parapelvic renal cysts and possible nonobstructing tiny calculi. Electronically Signed: Isaac Aviles MD at 17:29 EDT ,
[2023-10-03 14:19] LABS: Mucous, Urine 0 SEEN /hpf (<or=2+); Red Blood Cells-Urine 0 SEEN /hpf (0-5)
[2023-10-03 14:24] LABS: Color, Urine Straw (Yellow); Glucose, Dipstick Normal (Normal); Ketone-Dipstick Negative (Negative); Leukocyte Esterase-Dipstick 25 /ul (Negative); Nitrite-Dipstick Positive (Negative); Occult Blood-Urine Negative /ul (Negative); Protein-Dipstick Negative (Negative); Urine Bilirubin Dipstick Negative (Negative); Urine Clarity Sl. Cloudy (Clear); Urine Urobilinogen Normal (Normal); Urine pH 6.5 (5.0 - 8.0)
[2023-10-03] MEDS: Bisacodyl 5 MG Tablet 10 MG PO (14:31)
[2023-10-03 14:45] LABS: Bacteria 1+ /hpf (None Seen); Protein, Urine (Random) < 6.0 mg/dL (<11.9); Squamous Epithelial Cells - UA 0-5 SEEN /hpf (5-10); White Blood Cells 0-5 SEEN /hpf (0-5)
--- NOTE | 2023-10-03 14:54 | NURSING ---
10/03/23@3297- pts mother requested a conversation between pt, pts mother and RN. pt from home and is adamant on d/c home, but pt relies on mother a lot and she is not able to care for pt due to her age and own health. pts mother and RN agree pt would benefit from snf placement. pts mother states that the pt is unable to care for herself at home, does not follow doctor orders, does not take her meds, sleeps all day everyday, and has been in and out of [facility] and [facility]. cm updated. will continue to monitor.
--- NOTE | 2023-10-03 16:02 | CASEMGMT ---
Per admission questions patient does not have a Healthcare POA or Healthcare LW and is not interested in documents. Marta Duran [facility]
--- NOTE | 2023-10-03 16:04 | CHAPLAIN ---
Type of Pastoral Visit ___ Initial Visit ___ Follow-up Visit ___ On-call Visit ___ General Patient Visit ___ Spiritual Assessment ___ Family Conference ___ Bereavement ___ Rapid Response ___ Code Blue ___ Other (describe below) Pastoral Care Referral From ___ Patient ___ Family ___ Nurse ___ Physician ___ Informatica ___ Intake Counselor ___ Other (describe below) Sacrament/Intervention ___ Active listening ___ Anointing ___ Scientologist ___ Bereavement ___ Communion ___ Janina exploration ___ ___ Life review ___ Prayer ___ Reconciliation ___ Sacrament of Sick ___ Supportive presence ___ Wedding ___ Other (describe below) Pastoral Comments three attempts made to see this patient; she was unavailable due to patient care, sleeping;
--- NOTE | 2023-10-03 16:45 | PN.HOSP_ITS ---
Reason for Visit Reason for Visit: Diagnoses Migraine, unspecified, not intractable, without status migrainosus (09/30/23) Heart failure, unspecified (09/30/23) Objective Data Objective Data Vital Signs: Vital Signs Temp Pulse Resp BP Pulse Ox O2 Del Method O2 Flow Rate 98.4 F 102 H 18 118/74 93 Room Air 2 10/03/23 12:00 10/03/23 13:13 10/03/23 13:13 10/03/23 12:00 10/03/23 12:00 10/03/23 12:00 10/03/23 09:47 Oxygen Flow Rate (L/min) 2 Oxygen Delivery Method Room Air Weight: 296 lb 6 oz Body Mass Index (BMI) 50.8 Intake & Output: Intake and Output for Last 24 Hours 10/01/23 10/02/23 10/03/23 23:59 23:59 23:59 Intake Total 1030 / 1030 940 / 1060 240 / 240 Output Total 750 / 750 900 / 900 0 / 0 Balance 280 / 280 40 / 160 240 / 240 Lab / Micro Data 10/03/23 05:34 10/03/23 05:34 Labs: Laboratory Results - last 24 hr 10/03/23 05:34: WBC 12.3 H, RBC 4.01 L, Hgb 10.4 L, Hct 35.4 L, MCV 88.3, MCH 25.9 L, MCHC 29.4 L D, RDW Std Deviation 58.1 H, RDW Coeff of Alfredo 18.0 H, Plt Count 403, MPV 10.1, Immature Gran % (Auto) 0.800, Neut % (Auto) 68.0, Lymph % (Auto) 22.6, [place] % (Auto) 7.3, Eos % (Auto) 0.6, Baso % (Auto) 0.7, Absolute Neuts (auto) 8.4 H, Absolute Lymphs (auto) 2.78, Nucleated RBC % 0, Sodium 138, Potassium 4.4, Chloride 102, Carbon Dioxide 30.0, Anion Gap 6, BUN 24 H, C reatinine 1.51 H, Estim Creat Clear Calc 59.73, Est GFR (MDRD) Af Amer 46 L, Est GFR (MDRD) Non-Af 38 L, BUN/Creatinine Ratio 15.9, Glucose 122 H, Calcium 9.2 10/03/23 13:54: Urine Color Straw, Urine Clarity Sl. Cloudy, Urine pH 6.5, Ur Specific [place] 1.010, Urine Protein Negative, Urine Glucose (UA) Normal, Urine Ketones Negative, Urine Occult Blood Negative, Urine Nitrite Positive H, Urine Bilirubin Negative, Urine Urobilinogen Normal, Ur Leukocyte Esterase 25 H, Urine RBC 0 SEEN, Urine WBC 0-5 SEEN, Ur Squamous Epith Cells 0-5 SEEN, Urine Bacteria 1+, Urine Mucus 0 SEEN, U Random Total Protein < 6.0, Urine Creatinine 17.60, Protein/Creatinin Ratio TNP Micro: Microbiology 10/01/23 14:51 Mucosa - Nasopharyngeal Respiratory Panel (PCR) - Final 09/30/23 18:57 Mucosa - Nose SARS-CoV-2, Influenza & RSV (PCR) - Final Radiography Diagnostic Testing: Radiology Impression Abdomen X-Ray 10/03/23 10:06 IMPRESSION: Moderate amount of feces in the colon. No acute abnormality. Electronically Signed: Mat Barbosa MD at 14:42 EDT , Physical Exam Narrative Seen and examined. Shortness of breath better. Leg swelling is still there with subcutaneous edema. Complain of mild pain/pressure mid abdomen. No excruciating pain. No BM for 4 to 5 days. Physical exam General: Alert, Oriented x3, Cooperative. BMI 52.0 kg/m?, super morbid obesity HEENT: Atraumatic, PERRLA, EOMI, Normocephalic Oral: No Gingival or Mucosal Lesions/ Ulcerations Neck: Supple, No JVD, Negative Carotid Bruits Chest wall/Lungs: Air entry diminished in bilateral lung bases. On CPAP. Mild expiratory wheezing. Cardiovascular: Regular rate, Regular Rhythm, Normal S1, Normal S2, No M/G/R Abdomen: Bowel Sounds Present, Soft, Non-Distended. Mild nonspecific tenderness in the mid abdomen : No dysuria. No renal angle tenderness. No suprapubic tenderness. Extremities: Mild leg edema, Capillary Refill Less than 3 Seconds Skin: No rashes, No breakdown Musculoskeletal: No Tenderness to Palpation of Joints or Extremities Neurological: Cranial nerves II-XII grossly intact, DTR 2+/4. No acute focal neurological deficit. Psych/Mental Status: Flat affect Assessment & Plan Assessment/Plan (1) CHF exacerbation: PLAN: Plan #Hypoxia due to acute exacerbation of HFrEF * Has known EF of 35%, 2D echo done on September 07, 2023. * Hypoxia resolved on admission. Chest x-ray was negative and she did not have any elevated BNP level may be falsely low from super morbid obesity. * She is however being diuresed with IV Lasix 40 mg twice daily. On valsartan. * Monitor intake and output. Fluid restriction 1500 cc daily. * COVID, influenza and RSV rapid screen was negative. Respiratory panel negative. 10/02: Hypoxia is better 93% on room air. Requires BiPAP at night. Probably has sleep apnea #Acute on chronic migraine: * Headache is improved. She sees a neurologist in [place]. She was given a dose of steroids on admission for the headache. * On rimegapant prn. * monitor. # CKD stage IIIb: * Creatinine is 1.53. Baseline creatinine appears to fluctuate. * It was around 1.1 just in July 2023 but historically has been between 1.2-1.4. * She is on Lasix as well which may have caused further elevated BUN/creatinine. * BUNs/creatinine 1.28. Continue Lasix 40 mg IV daily 10/02: Nephrology consult reviewed. Lasix 40 mg IV changed to oral. Renal ultrasound ordered and done but not reported. #Hypothyroidism: On Synthroid #Hypertension: On amlodipine and valsartan #Depression: Escitalopram #Super morbid obesity: BMI is 52. Complicates acute care, expected recovery and prognosis. #Hyperlipidemia: On statin #COPD. Not in exacerbation. Breathing treatments bronchodilators. Mild abdominal pain probably due to constipation: Abdominal x-ray was done which shows moderate amount of feces. No acute abnormality. Patient refused for enema. Did not had BM for 4 to 5 days. Dulcolax 10 mg oral and suppository ordered. DVT prophylaxis: Lovenox Clinical Impression(s) from Imaging Studies Chest X-Ray 09/30/23 19:25 IMPRESSION: No radiographic evidence of acute cardiopulmonary disease. Electronically Signed: Solomon Corona MD at 20:10 EDT , Abdomen X-Ray 10/03/23 10:06 IMPRESSION: Moderate amount of feces in the colon. No acute abnormality. Electronically Signed: Mat Barbosa MD at 14:42 EDT , Charges/Coding Visit Charges Inpatient E&M: 76587 Subs Hosp L2
[2023-10-03] MEDS: oxyCODONE 5 MG Tablet PO ×2 (18:33→22:31)
[2023-10-03] MEDS: Acetaminophen 325 MG Tablet 650 MG PO (18:34)
[2023-10-03] MEDS: Atorvastatin Calcium 80 MG Tablet PO (21:31)
[2023-10-03] MEDS: traZODone 50 MG Tablet PO (21:31)
[2023-10-04] VITALS (10 sets, daily range): BP systolic 92–137; BP diastolic 61–88; PULSE 75–110; RESP 16–20; TEMP 35.9–36.7; O2SAT 93–97; BMI 51.0
[2023-10-04] MEDS: Ondansetron 4 MG/2 ML Vial IV ×3 (01:18→20:36)
[2023-10-04] MEDS: 0.9% Saline Lock 10 ML Syringe IV ×3 (01:19→20:36)
[2023-10-04] MEDS: Levothyroxine 100 MCG Tablet 200 MCG PO (05:35)
[2023-10-04] MEDS: cycloBENZAPRine HCl 5 MG TABLET PO ×3 (05:35→22:04)
[2023-10-04] MEDS: Gabapentin 300 MG Capsule PO ×3 (05:35→22:05)
[2023-10-04 07:04] LABS: Absolute Lymphocyte Count 2.77 X10^3/uL (0.83-4.51); Absolute Neutrophil Count 7.8 X10^3/uL (2.0-7.7); Basophil# 0.08 X10^3/uL; Basophil% 0.7 % (0-1); Eosinophil# 0.22 X10^3/uL; Eosinophils% 1.8 % (0-5); Hemoglobin 10.7 g/dL (12.0-15.0); Lymphocyte # 2.77 X10^3/ul (0.83-4.51); Lymphocyte % 23.1 % (19-41); Mean Corp Hgb Conc 29.7 g/dL (32-36); Mean Corpuscular Volume 87.6 fL (81-99); Mean Platelet Vol. 9.9 fl (6.2-12.0); Monocyte# 1.02 X10^3/uL; Monocyte% 8.5 % (0-10); NRBC Flagged by Analyzer 0 % (0-5); Neutrophil # 7.82 X10^3/uL (2.7-7.7); Neutrophil % 65.3 % (47-70); Platelet Count 387 K/mm3 (150-450); RBC Distribution Width SD 58.1 fl (35.1-43.9); Red Blood Count 4.11 M/mm3 (4.2-5.4)
[2023-10-04] MEDS: Budesonide Respules 0.5 MG/2 ML AMPUL.NEB. INHALATION ×2 (07:24→19:30)
[2023-10-04] MEDS: Ipratropium/Albuterol Sulfate 3 ML AMPUL.NEB INHALATION ×3 (07:24→19:30)
[2023-10-04 07:33] LABS: Anion Gap 6 (5-15); BUN 31 mg/dL (7-18); BUN/Creat Ratio 19.6 RATIO (10-20); Calcium,Total 9.5 mg/dL (8.5-10.1); Chloride 102 mmol/L (98-107); Creatinine, Serum 1.58 mg/dL (0.55-1.02); EST Glomerular Filtration Rate 36 mL/min (>60); Est Glom Filt Rate - Afr Amer 44 mL/min (>60); Estimated Creatinine Clearance 56.39 ml/min; Glucose 101 mg/dL (74-106); Potassium 4.3 mmol/L (3.5-5.1); Sodium Level 138 mmol/L (136-145)
[2023-10-04] MEDS: Losartan Potassium 50 MG Tablet PO (10:15)
[2023-10-04] MEDS: Bisacodyl 5 MG Tablet 10 MG PO (10:15)
[2023-10-04] MEDS: Isosorbide Mononitrate 30 MG Tablet PO (10:15)
[2023-10-04] MEDS: Citalopram 40 MG TABLET PO (10:15)
[2023-10-04] MEDS: Potassium Chloride Oral Tablet 10 MEQ PO (10:15)
--- NOTE | 2023-10-04 10:15 | CASEMGMT ---
Addendum entered by Franci Maurer 10/04/23 15:37: Patient did well with therapy. INEZ SHORE in to discuss HHC at discharge, mother at bedside. RN CM provided HHC list to patient and mother to review and will follow-up with preferences in the morning. Patient voiced understanding and will review list. CM will continue to follow this patient and plan for a safe discharge. Original Note: RN MONE updated by nursing regarding discharge disposition. Patient did not participate with therapy and concern for patient discharging home. Nursing also updated CM that patient's mother voiced concerns and that she may not be able to care for patient at home. INEZ SHORE in to discuss needs at discharge and progress with therapy and nursing. RN CM encouraged patient to participate with therapy to make sure patient is safe to discharge home. RN CM also updated patient regarding her mother's concerns being able to help patient. RN CM inquired how far patient had to ambulate in her apartment. Patient gave example of about 25feet. RN MONE discussed with patient if she is not able to ambulate that distance that she may to consider going to SNF for additional rehab. Patient states she will work with therapy today. CM will continue to follow this patient and plan for a safe discharge.
[2023-10-04] MEDS: Enoxaparin 40 MG/0.4 ML Syringe SC ×2 (10:16→22:04)
[2023-10-04] MEDS: Furosemide 40 MG Tablet PO (10:16)
[2023-10-04] MEDS: Bisacodyl 10 MG Suppository RC (10:36)
--- NOTE | 2023-10-04 11:07 | PN.RENAL_ITS ---
<Statement entered by Margarita Maldonado MD - 10/05/23 15:25> Pt seen & evaluated w/LEIGH. I personally interviewed & exam the pt. I was involved in all aspects of pt's orders, interpretation of results & treatment Subjective Subjective Resting in bed. States feeling better today. On room air. States breathing has improved. Objective Data Objective Data Vital Signs: Vital Signs Temp Pulse Resp BP Pulse Ox O2 Del Method O2 Flow Rate 97.7 F L 100 18 137/88 H 95 Room Air 2 10/04/23 09:30 10/04/23 09:30 10/04/23 09:30 10/04/23 09:30 10/04/23 10:00 10/04/23 10:00 10/03/23 22:30 Oxygen Flow Rate (L/min) 2 Oxygen Delivery Method Room Air Weight: 134.8 kg Body Mass Index (BMI) 51.0 Intake & Output: Intake and Output for Last 24 Hours 10/02/23 10/03/23 10/04/23 23:59 23:59 23:59 Intake Total 940 / 1060 840 / 1040 300 / 300 Output Total 900 / 900 700 / 700 Balance 40 / 160 140 / 340 300 / 300 Lab / Micro Data 10/04/23 06:23 10/04/23 06:23 Labs: Laboratory Results - last 24 hr 10/03/23 13:54: Urine Color Straw, Urine Clarity Sl. Cloudy, Urine pH 6.5, Ur Specific [place] 1.010, Urine Protein Negative, Urine Glucose (UA) Normal, Urine Ketones Negative, Urine Occult Blood Negative, Urine Nitrite Positive H, Urine Bilirubin Negative, Urine Urobilinogen Normal, Ur Leukocyte Esterase 25 H, Urine RBC 0 SEEN, Urine WBC 0-5 SEEN, Ur Squamous Epith Cells 0-5 SEEN, Urine Bacteria 1+, Urine Mucus 0 SEEN, U Random Total Protein < 6.0, Urine Creatinine 17.60, Protein/Creatinin Ratio TNP 10/04/23 06:23: WBC 12.0 H, RBC 4.11 L, Hgb 10.7 L, Hct 36.0 L, MCV 87.6, MCH 26.0 L, MCHC 29.7 L, RDW Std Deviation 58.1 H, RDW Coeff of Alfredo 18.0 H, Plt Count 387, MPV 9.9, Immature Gran % (Auto) 0.600, Neut % (Auto) 65.3, Lymph % (Auto) 23.1, [place] % (Auto) 8.5, Eos % (Auto) 1.8, Baso % (Auto) 0.7, Absolute Neuts (auto) 7.8 H, Absolute Lymphs (auto) 2.77, Nucleated RBC % 0, Sodium 138, Potassium 4.3, Chloride 102, Carbon Dioxide 30.0, Anion Gap 6, BUN 31 H, C reatinine 1.58 H, Estim Creat Clear Calc 56.39, Est GFR (MDRD) Af Amer 44 L, Est GFR (MDRD) Non-Af 36 L, BUN/Creatinine Ratio 19.6, Glucose 101, Calcium 9.5 Micro: Microbiology 10/01/23 14:51 Mucosa - Nasopharyngeal Respiratory Panel (PCR) - Final 09/30/23 18:57 Mucosa - Nose SARS-CoV-2, Influenza & RSV (PCR) - Final Radiography Diagnostic Testing: Radiology Impression Abdomen X-Ray 10/03/23 10:06 IMPRESSION: Moderate amount of feces in the colon. No acute abnormality. Electronically Signed: Mat Barbosa MD at 14:42 EDT , Renal Ultrasound 10/03/23 12:18 IMPRESSION: Findings consistent with bilateral parapelvic renal cysts and possible nonobstructing tiny calculi. Electronically Signed: Isaac Aviles MD at 17:29 EDT , Physical Exam Narrative Alert and oriented x 3, no apparent distress S1, S2, RRR Lung sounds clear anteriorly and posteriorly. No wheezes, rhonchi or rales noted Abdomen soft, rounded No pitting edema to bilateral lower limbs Assessment & Plan Assessment/Plan (1) MARYANA (acute kidney injury): (2) Shortness of breath: PLAN: Plan This is a 53-year-old female with past medical history significant for hypertension, coronary disease, pulmonary embolism who presented emergency room with complaints of shortness of breath and edema of lower extremities. Patient also complaining of migraine headache. She was admitted for possible exacerbation CHF. BNP 13.9 on admission. Chest x-ray no radiographic evidence of acute cardiopulmonary disease on admission. Echo from August 2023: Normal LV size, EF 55%, left ventricular systolic function normal. Patient was given a dose of bumetanide IV in the ER with some improvement in breathing and swelling per patient. Nephrology consulted in view of elevated creatinine. -MARYANA versus baseline CKD stage IIIa; patient has had elevated creatinine since around 2019 with baseline creatinine ranging around 1.2 mg/dL but does have fluctuations in serum creatinine trends. Creatinine was 1.4 8/2 --> SCr 1.28 8/ and last 2 days SCr 1.5. Potassium and bicarb normal. Volume status appears to have improved, no peripheral edema. Changed Lasix to oral starting today. Continue on Lasix 40 mg daily. Overall volume status improved. Renal ultrasound possible nonobstructing tiny calculi, left kidney 11.13 cm, right kidney 9.9 cm. UA no RBCs, no protein. Urine protein less than 6.0, urine creatinine 17. Discussed with patient importance of avoiding NSAIDs. Discussed nephrology plan with Dr. Fontana.
--- NOTE | 2023-10-04 13:23 | CHAPLAIN ---
Type of Pastoral Visit _x__ Initial Visit ___ Follow-up Visit ___ On-call Visit ___ General Patient Visit ___ Spiritual Assessment ___ Family Conference ___ Bereavement ___ Rapid Response ___ Code Blue ___ Other (describe below) Pastoral Care Referral From _x__ Patient ___ Family ___ Nurse ___ Physician ___ Application Security Engineer ___ Learning Developer ___ Other (describe below) Sacrament/Intervention ___ Active listening ___ Anointing ___ Alevism ___ Bereavement ___ Communion ___ Janina exploration ___ ___ Life review _x__ Prayer ___ Reconciliation ___ Sacrament of Sick _x__ Supportive presence ___ Wedding ___ Other (describe below) Pastoral Comments patient is resting quietly in bed; pt states a little bit when asked if she is feeling any better today; pt answers questions but does not engage in conversation; pt states that she does not need anything but that a prayer would be okay; prayer and presence given
--- NOTE | 2023-10-04 15:03 | PN.HOSP_ITS ---
Reason for Visit Reason for Visit: Diagnoses Migraine, unspecified, not intractable, without status migrainosus (09/30/23) Heart failure, unspecified (09/30/23) Objective Data Objective Data Vital Signs: Vital Signs Temp Pulse Resp BP Pulse Ox O2 Del Method O2 Flow Rate 97.7 F L 102 H 20 H 137/88 H 94 Nasal Cannula 3 10/04/23 09:30 10/04/23 13:14 10/04/23 13:14 10/04/23 09:30 10/04/23 10:42 10/04/23 13:29 10/04/23 13:29 Oxygen Flow Rate (L/min) 3 Oxygen Delivery Method Nasal Cannula Weight: 297 lb 2.93 oz Body Mass Index (BMI) 51.0 Intake & Output: Intake and Output for Last 24 Hours 10/02/23 10/03/23 10/04/23 23:59 23:59 23:59 Intake Total 940 / 1060 840 / 1040 440 / 440 Output Total 900 / 900 700 / 700 Balance 40 / 160 140 / 340 440 / 440 Lab / Micro Data 10/04/23 06:23 10/04/23 06:23 Labs: Laboratory Results - last 24 hr 10/04/23 06:23: WBC 12.0 H, RBC 4.11 L, Hgb 10.7 L, Hct 36.0 L, MCV 87.6, MCH 26.0 L, MCHC 29.7 L, RDW Std Deviation 58.1 H, RDW Coeff of Alfredo 18.0 H, Plt Count 387, MPV 9.9, Immature Gran % (Auto) 0.600, Neut % (Auto) 65.3, Lymph % (Auto) 23.1, [place] % (Auto) 8.5, Eos % (Auto) 1.8, Baso % (Auto) 0.7, Absolute Neuts (auto) 7.8 H, Absolute Lymphs (auto) 2.77, Nucleated RBC % 0, Sodium 138, Potassium 4.3, Chloride 102, Carbon Dioxide 30.0, Anion Gap 6, BUN 31 H, C reatinine 1.58 H, Estim Creat Clear Calc 56.39, Est GFR (MDRD) Af Amer 44 L, Est GFR (MDRD) Non-Af 36 L, BUN/Creatinine Ratio 19.6, Glucose 101, Calcium 9.5 Micro: Microbiology 10/01/23 14:51 Mucosa - Nasopharyngeal Respiratory Panel (PCR) - Final 09/30/23 18:57 Mucosa - Nose SARS-CoV-2, Influenza & RSV (PCR) - Final Radiography Diagnostic Testing: Radiology Impression Renal Ultrasound 10/03/23 12:18 IMPRESSION: Findings consistent with bilateral parapelvic renal cysts and possible nonobstructing tiny calculi. Electronically Signed: Isaac Aviles MD at 17:29 EDT , Physical Exam Narrative Seen and examined. Shortness of breath better. Leg swelling has improved complain of mild pain/pressure mid abdomen. No excruciating pain. No BM for about 1 week Physical exam General: Alert, Oriented x3, Cooperative. BMI 52.0 kg/m?, super morbid obesity HEENT: Atraumatic, PERRLA, EOMI, Normocephalic Oral: No Gingival or Mucosal Lesions/ Ulcerations Neck: Supple, No JVD, Negative Carotid Bruits Chest wall/Lungs: Air entry diminished in bilateral lung bases. On CPAP. No wheezing. Cardiovascular: Regular rate, Regular Rhythm, Normal S1, Normal S2, No M/G/R Abdomen: Bowel Sounds Present, Soft, Non-Distended. Mild nonspecific tenderness in the mid abdomen : No dysuria. No renal angle tenderness. No suprapubic tenderness. Extremities: Mild pitting leg edema bilaterally. Capillary Refill Less than 3 Seconds Skin: No rashes, No breakdown Musculoskeletal: No Tenderness to Palpation of Joints or Extremities Neurological: Cranial nerves II-XII grossly intact, DTR 2+/4. No acute focal neurological deficit. Psych/Mental Status: Flat affect Assessment & Plan Assessment/Plan (1) CHF exacerbation: PLAN: Plan #Hypoxia due to acute exacerbation of HFrEF * Has known EF of 35%, 2D echo done on September 07, 2023. * Hypoxia resolved on admission. Chest x-ray was negative and she did not have any elevated BNP level may be falsely low from super morbid obesity. * She is however being diuresed with IV Lasix 40 mg twice daily. On valsartan. * Monitor intake and output. Fluid restriction 1500 cc daily. * COVID, influenza and RSV rapid screen was negative. Respiratory panel negative. 10/02: Hypoxia is better 93% on room air. Requires BiPAP at night. Probably has sleep apnea 10/03: Patient is actively not short of breath or in respiratory distress. Pulse ox in the morning 95% on room air, 94% on 2 L oxygen. #Acute on chronic migraine: * Headache is improved. She sees a neurologist in [place]. She was given a dose of steroids on admission for the headache. * On rimegapant prn. * monitor. # CKD stage IIIb: * Creatinine is 1.53. Baseline creatinine appears to fluctuate. * It was around 1.1 just in July 2023 but historically has been between 1.2-1.4. * She is on Lasix as well which may have caused further elevated BUN/creatinine. * BUNs/creatinine 13/03.28. Continue Lasix 40 mg IV daily 10/02: Nephrology consult reviewed. Lasix 40 mg IV changed to oral. Renal ultrasound ordered and done but not reported. 10/03: Kidneys and bladder ultrasound reviewed. Findings consistent with bilateral parapelvic renal cyst and possible nonobstructive tiny calculi. Distended bladder volume 607 mL with normal wall thickness and no mass or calculi. Creatinine 1.58 no significant increase. #Hypothyroidism: On Synthroid #Hypertension: On amlodipine and valsartan #Depression: Escitalopram #Super morbid obesity: BMI is 52. Complicates acute care, expected recovery and prognosis. #Hyperlipidemia: On statin #COPD. Not in exacerbation. Breathing treatments bronchodilators. Mild abdominal pain probably due to constipation: Abdominal x-ray was done which shows moderate amount of feces. No acute abnormality. Patient refused for enema. Did not had BM for 4 to 5 days. Dulcolax 10 mg oral and suppository ordered. 10/03: Abdominal x-ray reviewed. Moderate to severe amount of feces in the colon. No free air identified. Mild gaseous distention of distal transverse and descending colon. Patient has been refusing for enema and Dulcolax suppository and discussed with her. At last she agreed for suppository and enema that is ordered. Dulcolax 10 mg oral also ordered. DVT prophylaxis: Lovenox Clinical Impression(s) from Imaging Studies Chest X-Ray 09/30/23 19:25 IMPRESSION: No radiographic evidence of acute cardiopulmonary disease. Electronically Signed: Solomon Corona MD at 20:10 EDT , Abdomen X-Ray 10/03/23 10:06 IMPRESSION: Moderate amount of feces in the colon. No acute abnormality. Electronically Signed: Mat Barbosa MD at 14:42 EDT , Charges/Coding Visit Charges Inpatient E&M: 22683 Subs Hosp L2
--- NOTE | 2023-10-04 15:16 | CASEMGMT ---
Discharge Planning A list of HH providers including quality and resource use data and consistent with the patient's preferred geographic region, medical needs, and insurance network was created in [facility].? This list was provided to the RN MONE. Ena Kaur, Discharge Planning Asst.
[2023-10-04] MEDS: Lactulose 20 GM/30 ML UDC PO (16:00)
--- NOTE | 2023-10-04 18:34 | NURSING ---
Reviewed and agreed on charting with Addison Perez RN
[2023-10-04] MEDS: Acetaminophen 325 MG Tablet 650 MG PO (22:04)
[2023-10-04] MEDS: Senna/Docusate Sodium 1 Tablet 2 TABLET PO (22:04)
[2023-10-04] MEDS: Atorvastatin Calcium 80 MG Tablet PO (22:04)
[2023-10-04] MEDS: traZODone 50 MG Tablet PO ×2 (22:05→23:58)
--- NOTE | 2023-10-04 23:17 | EKG12_ITS ---
Test Reason : CP Blood Pressure : / mmHG Vent. Rate : 107 BPM Atrial Rate : 107 BPM P-R Int : 142 ms QRS Dur : 082 ms QT Int : 368 ms P-R-T Axes : 041 020 055 degrees QTc Int : [address] & T wave abnormality, consider inferior ischemia Abnormal ECG When compared with ECG of 30-SEP-2023 23:27, MANUAL COMPARISON REQUIRED, DATA IS UNCONFIRMED Confirmed by Wes Medeiros ([id number]), proposal editor SONJA ZABALA ([id number]) on 10/06/2023 9:10:35 AM Referred By: KEYLA Confirmed By:Wes Medeiros
[2023-10-04] MEDS: oxyCODONE 5 MG Tablet PO (23:57)
[2023-10-04] MEDS: Calcium Carbonate 500 MG Tablet 1000 MG PO (23:58)
[2023-10-05] VITALS (11 sets, daily range): BP systolic 94–139; BP diastolic 60–87; PULSE 95–102; RESP 16–19; TEMP 35.6–36.8; O2SAT 93–102; BMI 50.8
[2023-10-05] MEDS: cycloBENZAPRine HCl 5 MG TABLET PO ×3 (06:10→21:00)
[2023-10-05] MEDS: Levothyroxine 100 MCG Tablet 200 MCG PO (06:10)
[2023-10-05] MEDS: Gabapentin 300 MG Capsule PO ×3 (06:10→21:01)
[2023-10-05 07:07] LABS: Absolute Lymphocyte Count 2.32 X10^3/uL (0.83-4.51); Absolute Neutrophil Count 9.6 X10^3/uL (2.0-7.7); Basophil# 0.06 X10^3/uL; Basophil% 0.5 % (0-1); Eosinophil# 0.31 X10^3/uL; Eosinophils% 2.4 % (0-5); Hematocrit 37.5 % (37-47); Hemoglobin 11.2 g/dL (12.0-15.0); Lymphocyte # 2.32 X10^3/ul (0.83-4.51); Lymphocyte % 17.7 % (19-41); Mean Corp Hgb Conc 29.9 g/dL (32-36); Mean Corpuscular Hgb 26.1 pg (27.0-32.0); Mean Corpuscular Volume 87.4 fL (81-99); Mean Platelet Vol. 9.8 fl (6.2-12.0); Monocyte# 0.71 X10^3/uL; Monocyte% 5.4 % (0-10); NRBC Flagged by Analyzer 0 % (0-5); Neutrophil # 9.64 X10^3/uL (2.7-7.7); Neutrophil % 73.5 % (47-70); Platelet Count 375 K/mm3 (150-450); RBC Distribution Width CV 17.8 % (11.6-14.6); RBC Distribution Width SD 56.4 fl (35.1-43.9); Red Blood Count 4.29 M/mm3 (4.2-5.4); White Blood Count 13.1 K/mm3 (4.4-11.0)
[2023-10-05] MEDS: Ipratropium/Albuterol Sulfate 3 ML AMPUL.NEB INHALATION ×3 (07:08→19:36)
[2023-10-05] MEDS: Budesonide Respules 0.5 MG/2 ML AMPUL.NEB. INHALATION ×2 (07:08→19:36)
[2023-10-05 07:25] LABS: Anion Gap 4 (5-15); BUN 27 mg/dL (7-18); BUN/Creat Ratio 18.6 RATIO (10-20); Calcium,Total 9.2 mg/dL (8.5-10.1); Chloride 102 mmol/L (98-107); Creatinine, Serum 1.45 mg/dL (0.55-1.02); EST Glomerular Filtration Rate 40 mL/min (>60); Est Glom Filt Rate - Afr Amer 49 mL/min (>60); Estimated Creatinine Clearance 61.36 ml/min; Glucose 119 mg/dL (74-106); Potassium 4.3 mmol/L (3.5-5.1); Sodium Level 137 mmol/L (136-145)
[2023-10-05] MEDS: Potassium Chloride Oral Tablet 10 MEQ PO (09:19)
[2023-10-05] MEDS: Citalopram 40 MG TABLET PO (09:20)
[2023-10-05] MEDS: Bisacodyl 5 MG Tablet 10 MG PO (09:20)
[2023-10-05] MEDS: Enoxaparin 40 MG/0.4 ML Syringe SC ×2 (09:20→21:05)
[2023-10-05] MEDS: Furosemide 40 MG Tablet PO (09:20)
[2023-10-05] MEDS: Senna/Docusate Sodium 1 Tablet 2 TABLET PO ×2 (09:21→21:00)
[2023-10-05] MEDS: Ondansetron 4 MG/2 ML Vial IV (10:44)
[2023-10-05] MEDS: Acetaminophen 325 MG Tablet 650 MG PO ×2 (10:44→22:40)
[2023-10-05] MEDS: 0.9% Saline Lock 10 ML Syringe IV (10:45)
[2023-10-05] MEDS: Polyethylene Glycol 3350 BOWEL PREP PO (11:15)
[2023-10-05] MEDS: LORazepam 1 MG Tablet PO ×3 (12:55→22:39)
--- NOTE | 2023-10-05 14:53 | PN.HOSP_ITS ---
Reason for Visit Reason for Visit: Diagnoses Migraine, unspecified, not intractable, without status migrainosus (09/30/23) Heart failure, unspecified (09/30/23) Objective Data Objective Data Vital Signs: Vital Signs Temp Pulse Resp BP Pulse Ox O2 Del Method O2 Flow Rate 97.5 F L 99 19 H 94/79 95 Nasal Cannula 3 10/05/23 09:10 10/05/23 13:45 10/05/23 13:45 10/05/23 09:10 10/05/23 12:45 10/05/23 13:43 10/05/23 13:43 Oxygen Flow Rate (L/min) 3 Oxygen Delivery Method Nasal Cannula Weight: 296 lb 8.348 oz Body Mass Index (BMI) 50.8 Intake & Output: Intake and Output for Last 24 Hours 10/03/23 10/04/23 10/05/23 23:59 23:59 23:59 Intake Total 840 / 1040 710 / 910 940 / 940 Output Total 700 / 700 200 / 200 Balance 140 / 340 510 / 710 940 / 940 Lab / Micro Data 10/05/23 06:54 10/05/23 06:56 Labs: Laboratory Results - last 24 hr 10/05/23 06:54: WBC 13.1 H, RBC 4.29, Hgb 11.2 L, Hct 37.5, MCV 87.4, MCH 26.1 L , MCHC 29.9 L, RDW Std Deviation 56.4 H, RDW Coeff of Alfredo 17.8 H, Plt Count 375, MPV 9.8, Immature Gran % (Auto) 0.500, Neut % (Auto) 73.5 H, Lymph % (Auto) 17.7 L, [place] % (Auto) 5.4, Eos % (Auto) 2.4, Baso % (Auto) 0.5, Absolute Neuts (auto) 9.6 H, Absolute Lymphs (auto) 2.32, Nucleated RBC % 0 10/05/23 06:56: Sodium 137, Potassium 4.3, Chloride 102, Carbon Dioxide 31.0, A nion Gap 4 L, BUN 27 H, Creatinine 1.45 H, Estim Creat Clear Calc 61.36, Est GFR (MDRD) Af Amer 49 L, Est GFR (MDRD) Non-Af 40 L, BUN/Creatinine Ratio 18.6, G lucose 119 H, Calcium 9.2 Micro: Microbiology 10/01/23 14:51 Mucosa - Nasopharyngeal Respiratory Panel (PCR) - Final 09/30/23 18:57 Mucosa - Nose SARS-CoV-2, Influenza & RSV (PCR) - Final Physical Exam Narrative Seen and examined. Shortness of breath better. Patient had good bowel movement after soapsuds enema and Dulcolax suppository. Abdominal pain is also improved. Limited ambulation/physical movement. Remains on the bed. Physical exam General: Alert, Oriented x3, Cooperative. BMI 52.0 kg/m?, super morbid obesity HEENT: Atraumatic, PERRLA, EOMI, Normocephalic Oral: No Gingival or Mucosal Lesions/ Ulcerations Neck: Supple, No JVD, Negative Carotid Bruits Chest wall/Lungs: Air entry diminished in bilateral lung bases. On CPAP. No wheezing. Cardiovascular: Regular rate, Regular Rhythm, Normal S1, Normal S2, No M/G/R Abdomen: Bowel Sounds Present, Soft, Non-Distended. No appreciable tenderness : No dysuria. No renal angle tenderness. No suprapubic tenderness. Extremities: Mild pitting leg edema bilaterally. Capillary Refill Less than 3 Seconds Skin: No rashes, No breakdown Musculoskeletal: No Tenderness to Palpation of Joints or Extremities Neurological: Cranial nerves II-XII grossly intact, DTR 2+/4. No acute focal neurological deficit. Psych/Mental Status: Flat affect Assessment & Plan Assessment/Plan (1) CHF exacerbation: PLAN: Plan #Hypoxia due to acute exacerbation of HFrEF * Has known EF of 35%, 2D echo done on September 07, 2023. * Hypoxia resolved on admission. Chest x-ray was negative and she did not have any elevated BNP level may be falsely low from super morbid obesity. * She is however being diuresed with IV Lasix 40 mg twice daily. On valsartan. * Monitor intake and output. Fluid restriction 1500 cc daily. * COVID, influenza and RSV rapid screen was negative. Respiratory panel negative. 10/02: Hypoxia is better 93% on room air. Requires BiPAP at night. Probably has sleep apnea 10/03: Patient is actively not short of breath or in respiratory distress. Pulse ox in the morning 95% on room air, 94% on 2 L oxygen. 10/04: 93% on 3 L of oxygen earlier was 95% on room air. Does not look objectively short of breath. #Acute on chronic migraine: * Headache is improved. She sees a neurologist in [place]. She was given a dose of steroids on admission for the headache. * On rimegapant prn. * monitor. # CKD stage IIIb: * Creatinine is 1.53. Baseline creatinine appears to fluctuate. * It was around 1.1 just in July 2023 but historically has been between 1.2-1.4. * She is on Lasix as well which may have caused further elevated BUN/creatinine. * BUNs/creatinine 14/1.28. Continue Lasix 40 mg IV daily 10/02: Nephrology consult reviewed. Lasix 40 mg IV changed to oral. Renal ultrasound ordered and done but not reported. 10/03: Kidneys and bladder ultrasound reviewed. Findings consistent with bilateral parapelvic renal cyst and possible nonobstructive tiny calculi. Distended bladder volume 607 mL with normal wall thickness and no mass or calculi. Creatinine 1.58 no significant increase. 10/04: Creatinine 1.45. Sales Associate Cashier is following #Hypothyroidism: On Synthroid #Hypertension: On amlodipine and valsartan #Depression: Escitalopram #Super morbid obesity: BMI is 52. Complicates acute care, expected recovery and prognosis. #Hyperlipidemia: On statin #COPD. Not in exacerbation. Breathing treatments bronchodilators. Mild abdominal pain probably due to constipation: Abdominal x-ray was done which shows moderate amount of feces. No acute abnormality. Patient refused for enema. Did not had BM for 4 to 5 days. Dulcolax 10 mg oral and suppository ordered. 10/03: Abdominal x-ray reviewed. Moderate to severe amount of feces in the colon. No free air identified. Mild gaseous distention of distal transverse and descending colon. Patient has been refusing for enema and Dulcolax suppository and discussed with her. At last she agreed for suppository and enema that is ordered. Dulcolax 10 mg oral also ordered. 10/04: Patient had good bowel movement after enema and suppository. Started on MiraLAX colon prep regimen with instruction to discontinue if she gets liquid BM. DVT prophylaxis: Lovenox Clinical Impression(s) from Imaging Studies Chest X-Ray 09/30/23 19:25 IMPRESSION: No radiographic evidence of acute cardiopulmonary disease. Electronically Signed: Solomon Corona MD at 20:10 EDT , Abdomen X-Ray 10/03/23 10:06 IMPRESSION: Moderate amount of feces in the colon. No acute abnormality. Electronically Signed: Mat Barbosa MD at 14:42 EDT , Charges/Coding Visit Charges Inpatient E&M: 84195 Subs Hosp L2
[2023-10-05] MEDS: Atorvastatin Calcium 80 MG Tablet PO (21:00)
[2023-10-05] MEDS: traZODone 50 MG Tablet PO ×2 (21:00→22:39)
[2023-10-05] MEDS: Losartan Potassium 50 MG Tablet PO (21:07)
[2023-10-05] MEDS: oxyCODONE 5 MG Tablet PO (23:50)
[2023-10-06] VITALS (14 sets, daily range): BP systolic 105–114; BP diastolic 62–78; PULSE 85–102; RESP 17–20; TEMP 36.1–36.8; O2SAT 86–98
--- NOTE | 2023-10-06 00:22 | CPS ---
patient does not want to wear BIPAP at this time; she states that she is too anxious right now
[2023-10-06] MEDS: Levothyroxine 100 MCG Tablet 200 MCG PO (05:21)
[2023-10-06] MEDS: Gabapentin 300 MG Capsule PO ×3 (05:21→22:14)
[2023-10-06] MEDS: cycloBENZAPRine HCl 5 MG TABLET PO ×3 (05:21→22:13)
[2023-10-06 06:35] LABS: Absolute Lymphocyte Count 1.98 X10^3/uL (0.83-4.51); Absolute Neutrophil Count 6.6 X10^3/uL (2.0-7.7); Basophil# 0.05 X10^3/uL; Basophil% 0.5 % (0-1); Eosinophil# 0.33 X10^3/uL; Eosinophils% 3.4 % (0-5); Hematocrit 35.6 % (37-47); Hemoglobin 10.7 g/dL (12.0-15.0); Lymphocyte # 1.98 X10^3/ul (0.83-4.51); Lymphocyte % 20.5 % (19-41); Mean Corp Hgb Conc 30.1 g/dL (32-36); Mean Corpuscular Volume 86.4 fL (81-99); Mean Platelet Vol. 9.8 fl (6.2-12.0); Monocyte# 0.66 X10^3/uL; Monocyte% 6.8 % (0-10); NRBC Flagged by Analyzer 0 % (0-5); Neutrophil # 6.57 X10^3/uL (2.7-7.7); Neutrophil % 68.3 % (47-70); Platelet Count 354 K/mm3 (150-450); RBC Distribution Width CV 17.4 % (11.6-14.6); RBC Distribution Width SD 55.4 fl (35.1-43.9); Red Blood Count 4.12 M/mm3 (4.2-5.4); White Blood Count 9.6 K/mm3 (4.4-11.0)
[2023-10-06 07:16] LABS: Anion Gap 5 (5-15); BUN 20 mg/dL (7-18); Calcium,Total 9.4 mg/dL (8.5-10.1); Chloride 100 mmol/L (98-107); Creatinine, Serum 1.33 mg/dL (0.55-1.02); EST Glomerular Filtration Rate 44 mL/min (>60); Est Glom Filt Rate - Afr Amer 54 mL/min (>60); Estimated Creatinine Clearance 66.89 ml/min; Glucose 125 mg/dL (74-106); Potassium 4.2 mmol/L (3.5-5.1); Sodium Level 134 mmol/L (136-145)
[2023-10-06] MEDS: Budesonide Respules 0.5 MG/2 ML AMPUL.NEB. INHALATION ×2 (07:51→19:16)
[2023-10-06] MEDS: Ipratropium/Albuterol Sulfate 3 ML AMPUL.NEB INHALATION ×2 (07:51→19:16)
[2023-10-06] MEDS: Potassium Chloride Oral Tablet 10 MEQ PO (08:15)
[2023-10-06] MEDS: Citalopram 40 MG TABLET PO (08:16)
[2023-10-06] MEDS: Losartan Potassium 50 MG Tablet PO ×2 (08:16→22:13)
[2023-10-06] MEDS: Bisacodyl 5 MG Tablet 10 MG PO (08:17)
[2023-10-06] MEDS: Furosemide 40 MG Tablet PO (08:17)
[2023-10-06] MEDS: Enoxaparin 40 MG/0.4 ML Syringe SC ×2 (08:18→22:14)
[2023-10-06] MEDS: Senna/Docusate Sodium 1 Tablet 2 TABLET PO ×2 (08:18→22:14)
--- NOTE | 2023-10-06 09:33 | CASEMGMT ---
INEZ SHORE in to discuss discharge planning with patient. INEZ SHORE discussed HHC with patient, patient agreeable and states she prefers [facility]. Patient had no further questions or concerns. INEZ SHORE made referral to [facility], awaiting acceptance.
--- NOTE | 2023-10-06 11:30 | CASEMGMT ---
JUVENAL SHORE updated by [facility] that they are not in network. INEZ SHORE updated patient and she stays she does not have any preference on [facility] agency and is agreeable to have multiple referrals sent. Discharge director of financial planning updated.
--- NOTE | 2023-10-06 12:03 | DS.PCM_ITS ---
Providers Date of Admission: 09/30/23 Date of Discharge: 10/06/23 Primary Care Physician: Nasreen Sutton MD Consultations 10/03/23 10:07 Consult: Nephrology Routine Consulting Provider: Sera Sandhu Reason for Consult: MARYANA, CHF EMERGENT Consult: No Notified: Yes Date Notified: 10/03/23 Time Notified: 10:08 Method of Notification: Text Reason For Visit: CHF EXACERBATION Diagnosis Discharge Diagnosis (1) CHF exacerbation: Status: Chronic Code(s): I50.9 - Heart failure, unspecified Plan 53-year-old female with multiple comorbidities was admitted with shortness of breath, bilateral lower extremity edema, dyspnea on exertion, hypoxia 86% on room air symptom complex suggestive of CHF exacerbation. Patient was admitted in PCU. #Hypoxia due to acute exacerbation of HFrEF * Has known EF of 35%, 2D echo done on September 07, 2023. * Hypoxia resolved on admission. Chest x-ray was negative and she did not have any elevated BNP level may be falsely low from super morbid obesity. * She is however being diuresed with IV Lasix 40 mg twice daily. On valsartan. * Monitor intake and output. Fluid restriction 1500 cc daily. * COVID, influenza and RSV rapid screen was negative. Respiratory panel negative. 10/02: Hypoxia is better 93% on room air. Requires BiPAP at night. Probably has sleep apnea 10/03: Patient is actively not short of breath or in respiratory distress. Pulse ox in the morning 95% on room air, 94% on 2 L oxygen. 10/04: 93% on 3 L of oxygen earlier was 95% on room air. Does not look objectively short of breath. 10/05: Home oxygen qualification test. Currently pulse ox 95% on 2 L of oxygen. Follow-up cardiology as an outpatient Dr. Wes Medeiros in 2 weeks #Acute on chronic migraine: * Headache is improved. She sees a neurologist in [place]. She was given a dose of steroids on admission for the headache. * On rimegapant prn. * monitor. 10/06: Acute headache resolved. # CKD stage IIIb: * Creatinine is 1.53. Baseline creatinine appears to fluctuate. * It was around 1.1 just in July 2023 but historically has been between 1.2-1.4. * She is on Lasix as well which may have caused further elevated BUN/creatinine. * BUNs/creatinine 14/1.28. Continue Lasix 40 mg IV daily 10/02: Nephrology consult reviewed. Lasix 40 mg IV changed to oral. Renal ultrasound ordered and done but not reported. 10/03: Kidneys and bladder ultrasound reviewed. Findings consistent with bilateral parapelvic renal cyst and possible nonobstructive tiny calculi. Distended bladder volume 607 mL with normal wall thickness and no mass or calculi. Creatinine 1.58 no significant increase. 10/04: Creatinine 1.45. Aircraft Pilot is following 10/05: Creatinine improved to 1.33. Prescription for Lasix 40 mg oral daily. Potassium is normal. On potassium 10 mEq supplement. Follow-up with the prosthetist. #Hypothyroidism: On Synthroid #Hypertension: On amlodipine and valsartan #Depression: Escitalopram #Super morbid obesity: BMI is 52. Complicates acute care, expected recovery and prognosis. #Hyperlipidemia: On statin #COPD. Not in exacerbation. Breathing treatments bronchodilators. Mild abdominal pain probably due to constipation: Abdominal x-ray was done which shows moderate amount of feces. No acute abnormality. Patient refused for enema. Did not had BM for 4 to 5 days. Dulcolax 10 mg oral and suppository ordered. 10/03: Abdominal x-ray reviewed. Moderate to severe amount of feces in the colon. No free air identified. Mild gaseous distention of distal transverse and descending colon. Patient has been refusing for enema and Dulcolax suppository and discussed with her. At last she agreed for suppository and enema that is ordered. Dulcolax 10 mg oral also ordered. 10/04: Patient had good bowel movement after enema and suppository. Started on MiraLAX colon prep regimen with instruction to discontinue if she gets liquid BM. 10/05: She said she had 2 bowel movements yesterday. Advised to continue MiraLAX 17 g twice daily and senna S2 tablet twice daily. DVT prophylaxis: Lovenox Clinical Impression(s) from Imaging Studies Chest X-Ray 09/30/23 19:25 IMPRESSION: No radiographic evidence of acute cardiopulmonary disease. Electronically Signed: Solomon Corona MD at 20:10 EDT , Abdomen X-Ray 10/03/23 10:06 IMPRESSION: Moderate amount of feces in the colon. No acute abnormality. Electronically Signed: Mat Barbosa MD at 14:42 EDT , Medications at Discharge Home Medications citalopram 40 mg tablet 40 mg PO DAILY DEPRESSION/ANXIETY 07/27/19 budesonide-formoterol HFA 160 mcg-4.5 mcg/actuation aerosol inhaler (Symbicort) 2 puff inhalation BID COPD 04/02/20 lorazepam 1 mg tablet 1 mg PO TID PRN ANXIETY 05/04/22 progesterone micronized 200 mg capsule 400 mg PO QHS HORMONES 10/11/22 metoclopramide HCl 10 mg tablet (Reglan) 10 mg PO Q6H PRN NAUSEA AND VOMTING #20 tabs 01/07/23 atorvastatin 80 mg tablet 80 mg PO DAILY CHOLESTEROL 02/10/23 cyclobenzaprine 5 mg tablet 5 mg PO Q8H MUSCLE SPASMS 02/10/23 potassium chloride 10 mEq capsule,extended release 10 meq PO DAILY SUPPLEMENT #90 caps 05/02/23 fluticasone fur. 100 mcg-umeclid 62.5 mcg-vilant 25 mcg inhalat.powder (Trelegy Ellipta) 1 inh inhalation DAILY COPD 06/20/23 albuterol sulfate 90 mcg/actuation aerosol inhaler 2 puff inhalation Q4H PRN SHORTNESS OF BREATH/WHEEZING 07/29/23 galcanezumab-gnlm 120 mg/mL subcutaneous syringe (Emgality) 120 mg subcut Q30D migraines 07/29/23 isosorbide mononitrate 30 mg tablet,extended release 24 hr 30 mg PO DAILY HEART 07/29/23 trazodone 50 mg tablet 50 - 100 mg PO QHS SLEEP 07/29/23 atenolol 25 mg tablet 25 mg PO DAILY PRN ANXIETY 08/23/23 valsartan 320 mg tablet 160 mg (1/2 x 320 mg) PO BID BLOOD PRESSURE #90 tabs 09/13/23 diclofenac sodium 3 % topical gel 1 ea topical BID PRN PRN skin irritation 09/30/23 gabapentin 300 mg capsule 300 mg PO TID pain 09/30/23 galcanezumab-gnlm 120 mg/mL subcutaneous pen injector (Emgality Pen) 120 mg subcut QMONTH migraine 09/30/23 calcium carbonate 1,000 mg PO Q6H PRN PRN heartburn 10/01/23 levothyroxine 100 mcg tablet 200 mcg PO DAILY thyroid 10/01/23 naratriptan 2.5 mg tablet 2.5 mg PO BID PRN migraines 10/01/23 furosemide 40 mg tablet 40 mg PO DAILY 30 days #30 tabs 10/06/23 Weight / BMI Weight Weight: 296 lb 8.348 oz Body Mass Index (BMI) 50.8 ABG / Lab / Microbiology Data 10/06/23 06:15 10/06/23 06:15 Laboratory: Laboratory Results - last 24 hr 10/06/23 06:15: WBC 9.6, RBC 4.12 L, Hgb 10.7 L, Hct 35.6 L, MCV 86.4, MCH 26.0 L, MCHC 30.1 L, RDW Std Deviation 55.4 H, RDW Coeff of Alfredo 17.4 H, Plt Count 354, MPV 9.8, Immature Gran % (Auto) 0.500, Neut % (Auto) 68.3, Lymph % (Auto) 20.5, [place] % (Auto) 6.8, Eos % (Auto) 3.4, Baso % (Auto) 0.5, Absolute Neuts (auto) 6.6, Absolute Lymphs (auto) 1.98, Nucleated RBC % 0, Sodium 134 L, Potassium 4.2, Chloride 100, Carbon Dioxide 29.0, Anion Gap 5, BUN 20 H, C reatinine 1.33 H, Estim Creat Clear Calc 66.89, Est GFR (MDRD) Af Amer 54 L, Est GFR (MDRD) Non-Af 44 L, BUN/Creatinine Ratio 15.0, Glucose 125 H, Calcium 9.4 Microbiology: Microbiology 10/01/23 14:51 Mucosa - Nasopharyngeal Respiratory Panel (PCR) - Final 09/30/23 18:57 Mucosa - Nose SARS-CoV-2, Influenza & RSV (PCR) - Final D/C Instructions Discharge Diet: 1800 Calorie Control Diet, 8 Cup Fluid Restriction and 2000 mg Sodium Diet Weight Bearing Status: Weight bearing as tolerated Call your doctor if you observe: Fever of 101 or Higher, Coldness, Increased Pain, Numbness or Tingling, Change in Color, Inability to urinate, Inability to have a bowel movement, Shortness of breath, Dizziness, Fainting spells, Swelling in the ankles, Chest pain, Prolonged hiccupping, Increased palpitations (irregular heartbeat) and Calf discomfort When: IN 2 WEEKS Meaningful Use Info Meaningful Use Meaningful Use Diagnoses (Choose all that apply): CHF CHF LUIS/ARB ordered at discharge?: No Reason LUIS/ARB not ordered?: Worsening renal disease and Worsening renal dysfunctn Documented LVEF (%): 35 Ischemic Stroke Statin Dosing Therapy Reference: STATIN DOSE THERAPY REFERENCE: * Patients > 75 years receive moderate or high dose statin therapy. * Patients 75 years or YOUNGER should receive HIGH intensity statin dose unless contraindicated. You will be required to document reason for non-treatment if statin daily dose does not meet guidelines. HIGH DOSE STATIN THERAPY DAILY Atorvastatin > than or = to 40 mg Rosuvastatin > than or = to 20 mg Amlodipine + Atorvastatin > than or = to 2.5/40 mg Ezetimibe + Simvastatin 10/80 mg Simvastatin 80mg Discharge Plan Admission Admit Date/Time: 09/30/23 21:02 Primary Reason for Your Visit: Heart failure exacerbation Attending Provider: Frank Fontana Primary Care Provider: Nasreen Sutton Consulting Providers: Anam Roldan; Daria Knight; Sera Sandhu Instructions Additional Instructions / Restrictions: [id number] MiraLAX 17 g oral twice daily and Senna-S 2 tablet oral twice daily for 7 days. Patient has constipation. Discharge Orders/Prescriptions Prescriptions: New furosemide 40 mg Tablet 40 mg PO DAILY 30 Days Qty: 30 0RF Rx Instructions: Take extra 40 mg dose at 5 PM for increased leg swelling or weight gain 5 pounds in 1 week. Continued budesonide-formoterol [Symbicort] 160-4.5 mcg/actuation HFA aerosol inhaler 2 puff INHALATION BID Trelegy Ellipta 100-62.5-25 mcg blister with device 1 inh INHALATION DAILY lorazepam 1 mg tablet 1 mg PO TID PRN (Reason: ANXIETY ) progesterone micronized 200 mg capsule 400 mg PO QHS cyclobenzaprine 5 mg tablet 5 mg PO Q8H atorvastatin 80 mg Tablet 80 mg PO DAILY metoclopramide HCl [Reglan] 10 mg tablet 10 mg PO Q6H PRN (Reason: NAUSEA AND VOMTING ) Qty: 20 0RF albuterol sulfate 90 mcg/actuation HFA aerosol inhaler 2 puff inhalation Q4H PRN (Reason: SHORTNESS OF BREATH/WHEEZING ) Emgality Syringe 120 mg/mL syringe 120 mg subcut Q30D isosorbide mononitrate 30 mg tablet extended release 24 hr 30 mg PO DAILY trazodone 50 mg tablet 50 - 100 mg PO QHS atenolol 25 mg tablet 25 mg PO DAILY PRN (Reason: ANXIETY ) diclofenac sodium 3 % gel 1 ea topical BID PRN PRN (Reason: skin irritation) gabapentin 300 mg capsule 300 mg PO TID Emgality Pen 120 mg/mL pen injector 120 mg subcut QMONTH levothyroxine 100 mcg tablet 200 mcg PO DAILY naratriptan 2.5 mg tablet 2.5 mg PO BID PRN (Reason: migraines) Rx Instructions: can repeat dose, two hours after first dose taken. do not exceed more than two doses in 24 hours. calcium carbonate 500 mg calcium (1,250 mg) tablet,chewable 1,000 mg PO Q6H PRN PRN (Reason: heartburn) citalopram 40 mg tablet 40 mg PO DAILY potassium chloride 10 mEq capsule, extended release 10 meq PO DAILY Qty: 90 3RF valsartan 320 mg tablet 160 mg PO BID Qty: 90 3RF Discontinued amlodipine 10 mg tablet 10 mg PO DAILY Qty: 90 3RF Referrals / Follow Up: Nasreen Sutton MD [Primary Care Provider] - 10/14/23 3:40 pm Sera Sandhu MD [Med Staff - Consulting] - Within 1 Month Wes Medeiros MD [Med Staff - Active Staff] - Within 2 Weeks Disposition Disposition (needs filled in before D/C Order can be placed): Home Health Service
--- NOTE | 2023-10-06 13:26 | CASEMGMT ---
Discharge Planning HH referrals sent to [facility] (declined), [facility] (declined), [facility] (accept[facility]), [facility] (declined), [facility] (accepted), [facility] (delined), and [facility] (declined). Patient AOC is [facility]. [facility]N updated and SOC will be tomorrow. Ena Kaur DC Planning Asst.
--- NOTE | 2023-10-06 13:39 | CASEMGMT ---
INEZ SHORE updated patient regarding acceptance with [facility]. Patient prefers [facility]. Patient denied further needs at discharge. Patient had no further questions. INEZ SHORE updated discharge capacity planning analyst.
[2023-10-06] MEDS: Ondansetron 4 MG/2 ML Vial IV (15:09)
--- NOTE | 2023-10-06 15:16 | CASEMGMT ---
Patient requested to do advance directives. SW completed advance directives with patient. Copies were made and given to patient along with originals. A copy of each was also placed in patient's chart. Marta ALMANZAR
--- NOTE | 2023-10-06 15:40 | PCM.PN.HOSP ---
Reason for Visit Reason for Visit: Diagnoses Migraine, unspecified, not intractable, without status migrainosus (09/30/23) Heart failure, unspecified (09/30/23) Acute kidney failure, unspecified (09/30/23) Shortness of breath (09/30/23) Objective Data Objective Data Vital Signs: Vital Signs Temp Pulse Resp BP Pulse Ox O2 Del Method O2 Flow Rate 97.7 F L 102 H 18 114/77 92 Room Air 2 10/06/23 14:23 10/06/23 14:23 10/06/23 14:23 10/06/23 14:23 10/06/23 14:23 10/06/23 14:23 10/06/23 10:00 Oxygen Flow Rate (L/min) 2 Oxygen Delivery Method Room Air Weight: 296 lb 8.348 oz Body Mass Index (BMI) 50.8 Intake & Output: Intake and Output for Last 24 Hours 10/04/23 10/05/23 10/06/23 23:59 23:59 23:59 Intake Total 710 / 910 1940 / 2440 900 / 900 Output Total 200 / 200 Balance 510 / 710 1940 / 2440 900 / 900 Lab / Micro Data 10/06/23 06:15 10/06/23 06:15 Labs: Laboratory Results - last 24 hr 10/06/23 06:15: WBC 9.6, RBC 4.12 L, Hgb 10.7 L, Hct 35.6 L, MCV 86.4, MCH 26.0 L, MCHC 30.1 L, RDW Std Deviation 55.4 H, RDW Coeff of Alfredo 17.4 H, Plt Count 354, MPV 9.8, Immature Gran % (Auto) 0.500, Neut % (Auto) 68.3, Lymph % (Auto) 20.5, Apache % (Auto) 6.8, Eos % (Auto) 3.4, Baso % (Auto) 0.5, Absolute Neuts (auto) 6.6, Absolute Lymphs (auto) 1.98, Nucleated RBC % 0, Sodium 134 L, Potassium 4.2, Chloride 100, Carbon Dioxide 29.0, Anion Gap 5, BUN 20 H, Creatinine 1.33 H, Estim Creat Clear Calc 66.89, Est GFR (MDRD) Af Amer 54 L, Est GFR (MDRD) Non-Af 44 L, BUN/Creatinine Ratio 15.0, Glucose 125 H, Calcium 9.4 Micro: Microbiology 10/01/23 14:51 Mucosa - Nasopharyngeal Respiratory Panel (PCR) - Final 09/30/23 18:57 Mucosa - Nose SARS-CoV-2, Influenza & RSV (PCR) - Final Physical Exam Narrative Seen and examined. Shortness of breath better. Patient had good bowel movement after soapsuds enema and Dulcolax suppository. Abdominal pain is also improved. Limited ambulation/physical movement. Remains on the bed. Physical exam General: Alert, Oriented x3, Cooperative. BMI 52.0 kg/m?, super morbid obesity HEENT: Atraumatic, PERRLA, EOMI, Normocephalic Oral: No Gingival or Mucosal Lesions/ Ulcerations Neck: Supple, No JVD, Negative Carotid Bruits Chest wall/Lungs: Air entry diminished in bilateral lung bases. On CPAP. No wheezing. Cardiovascular: Regular rate, Regular Rhythm, Normal S1, Normal S2, No M/G/R Abdomen: Bowel Sounds Present, Soft, Non-Distended. No appreciable tenderness : No dysuria. No renal angle tenderness. No suprapubic tenderness. Extremities: Mild pitting leg edema bilaterally. Capillary Refill Less than 3 Seconds Skin: No rashes, No breakdown Musculoskeletal: No Tenderness to Palpation of Joints or Extremities Neurological: Cranial nerves II-XII grossly intact, DTR 2+/4. No acute focal neurological deficit. Psych/Mental Status: Flat affect Assessment & Plan Assessment/Plan (1) CHF exacerbation: PLAN: Plan 53-year-old female with multiple comorbidities was admitted with shortness of breath, bilateral lower extremity edema, dyspnea on exertion, hypoxia 86% on room air symptom complex suggestive of CHF exacerbation. Patient was admitted in PCU. #Hypoxia due to acute exacerbation of HFrEF Has known EF of 35%, 2D echo done on September 07, 2023. Hypoxia resolved on admission. Chest x-ray was negative and she did not have any elevated BNP level may be falsely low from super morbid obesity. She is however being diuresed with IV Lasix 40 mg twice daily. On valsartan. Monitor intake and output. Fluid restriction 1500 cc daily. COVID, influenza and RSV rapid screen was negative. Respiratory panel negative. 10/02: Hypoxia is better 93% on room air. Requires BiPAP at night. Probably has sleep apnea 10/03: Patient is actively not short of breath or in respiratory distress. Pulse ox in the morning 95% on room air, 94% on 2 L oxygen. 10/04: 93% on 3 L of oxygen earlier was 95% on room air. Does not look objectively short of breath. 10/05: Home oxygen qualification test. Currently pulse ox 95% on 2 L of oxygen. Patient felt dizzy and fatigue therefore requested to stay 1 more night. Follow-up cardiology as an outpatient Dr. Wes Medeiros in 2 weeks #Acute on chronic migraine: Headache is improved. She sees a neurologist in [place]. She was given a dose of steroids on admission for the headache. On rimegapant prn. monitor. 10/06: Acute headache resolved. # CKD stage IIIb: Creatinine is 1.53. Baseline creatinine appears to fluctuate. It was around 1.1 just in July 2023 but historically has been between 1.2-1.4. She is on Lasix as well which may have caused further elevated BUN/creatinine. BUNs/creatinine 14/1.28. Continue Lasix 40 mg IV daily 10/02: Nephrology consult reviewed. Lasix 40 mg IV changed to oral. Renal ultrasound ordered and done but not reported. 10/03: Kidneys and bladder ultrasound reviewed. Findings consistent with bilateral parapelvic renal cyst and possible nonobstructive tiny calculi. Distended bladder volume 607 mL with normal wall thickness and no mass or calculi. Creatinine 1.58 no significant increase. 10/04: Creatinine 1.45. Pl Sql Developer is following 10/05: Creatinine improved to 1.33. Prescription for Lasix 40 mg oral daily. Potassium is normal. On potassium 10 mEq supplement. 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 #Hypothyroidism: On Synthroid #Hypertension: On amlodipine and valsartan #Depression: Escitalopram #Super morbid obesity: BMI is 52. Complicates acute care, expected recovery and prognosis. #Hyperlipidemia: On statin #COPD. Not in exacerbation. Breathing treatments bronchodilators. Mild abdominal pain probably due to constipation: Abdominal x-ray was done which shows moderate amount of feces. No acute abnormality. Patient refused for enema. Did not had BM for 4 to 5 days. Dulcolax 10 mg oral and suppository ordered. 8/6: Abdominal x-ray reviewed. Moderate to severe amount of feces in the colon. No free air identified. Mild gaseous distention of distal transverse and descending colon. Patient has been refusing for enema and Dulcolax suppository and discussed with her. At last she agreed for suppository and enema that is ordered. Dulcolax 10 mg oral also ordered. 10/04: Patient had good bowel movement after enema and suppository. Started on MiraLAX colon prep regimen with instruction to discontinue if she gets liquid BM. 10/05: She said she had 2 bowel movements yesterday. Advised to continue MiraLAX 17 g twice daily and senna S2 tablet twice daily. DVT prophylaxis: Lovenox Clinical Impression(s) from Imaging Studies Chest X-Ray 09/30/23 19:25 IMPRESSION: No radiographic evidence of acute cardiopulmonary disease. Electronically Signed: Solomon Corona MD at 20:10 EDT , Abdomen X-Ray 10/03/23 10:06 IMPRESSION: Moderate amount of feces in the colon. No acute abnormality. Electronically Signed: Mat Barbosa MD at 14:42 EDT , Charges/Coding Visit Charges Inpatient E&M: 53450 Subs Hosp L2
[2023-10-06] MEDS: LORazepam 1 MG Tablet PO (17:53)
[2023-10-06] MEDS: Acetaminophen 325 MG Tablet 650 MG PO (18:40)
[2023-10-06] MEDS: traZODone 50 MG Tablet PO (22:14)
[2023-10-06] MEDS: Atorvastatin Calcium 80 MG Tablet PO (22:15)
--- NOTE | 2023-10-06 22:20 | PCM.HOSP.N ---
Hospitalist Note Contacted per RT with mention of oxygenation ongoing with her BIPAP. She does not have oxygen at home to attach to the BIPAP of note. RT will perform trending pulse assessment this evening to assist in ability to send patient home with oxygen. Asked RT to also notify RN and charge so it may be passed onto case management/social work for set-up assistance.
--- NOTE | 2023-10-06 22:43 | CPS ---
02/04 1L o2 bled in, spo2 88% HR 101 tv 500 MV 8.0. 02/04 2L o2 92% 102 a few minutes later spo2 dipped again to 88% 10/11 3L o2 94% 100 RR 17 tv 347 mv 7 2342/9 3L o2 bled in 93% 100 RR 17 tv 379 then pt was off bipap for a while oct 07 25101/04 RA for remainder of study. Pt does not have O2 at home. O2 has been bled in to bipap since admission. 01/04 RA 93% According to history in chart pt has home bipap at 12/03, for which she has been encouraged to wear every night while here. Has always had O2 bled into bipap since admit. On hospital bipap machine 12/03 pt was not even reaching 300 tv when asleep, RT recommended retitration. Pt sees Dr. Bowden, last documents in chart from 2019
[2023-10-06] MEDS: oxyCODONE 5 MG Tablet PO (23:40)
[2023-10-07 02:55] VITALS: O2SAT 90
[2023-10-07 03:00] VITALS: PULSE 92
[2023-10-07 03:52] VITALS: BMI 50.8
[2023-10-07 04:00] VITALS: BP 115/66; PULSE 83; RESP 18; TEMP 36.3; O2SAT 93
[2023-10-07] MEDS: Gabapentin 300 MG Capsule PO (05:16)
[2023-10-07] MEDS: cycloBENZAPRine HCl 5 MG TABLET PO (05:16)
[2023-10-07] MEDS: Levothyroxine 100 MCG Tablet 200 MCG PO (05:16)
[2023-10-07 07:09] VITALS: PULSE 87; RESP 20
[2023-10-07] MEDS: Ipratropium/Albuterol Sulfate 3 ML AMPUL.NEB INHALATION (07:09)
[2023-10-07] MEDS: Budesonide Respules 0.5 MG/2 ML AMPUL.NEB. INHALATION (07:09)
[2023-10-07] MEDS: Acetaminophen 325 MG Tablet 650 MG PO (09:34)
[2023-10-07] MEDS: Enoxaparin 40 MG/0.4 ML Syringe SC (09:35)
[2023-10-07] MEDS: Potassium Chloride Oral Tablet 10 MEQ PO (09:37)
[2023-10-07] MEDS: Senna/Docusate Sodium 1 Tablet 2 TABLET PO (09:37)
[2023-10-07] MEDS: Isosorbide Mononitrate 30 MG Tablet PO (09:37)
[2023-10-07] MEDS: Losartan Potassium 50 MG Tablet PO (09:37)
[2023-10-07] MEDS: Citalopram 40 MG TABLET PO (09:38)
[2023-10-07] MEDS: Furosemide 40 MG Tablet PO (09:40)
[2023-10-07 09:56] VITALS: BP 95/63; PULSE 92; RESP 18; TEMP 36.6; O2SAT 92
--- NOTE | 2023-10-07 10:13 | DCINST_ITS ---
Discharge Instructions Diet Discharge Diet: 1800 Calorie Control Diet, 8 Cup Fluid Restriction and 2000 mg Sodium Diet Activity Discharge Activity: Return to Normal Activity Weight Bearing Status: Weight bearing as tolerated Dressing / Incision Call your doctor if you observe: Fever of 101 or Higher, Coldness, Increased Pain, Numbness or Tingling, Change in Color, Inability to urinate, Inability to have a bowel movement, Shortness of breath, Dizziness, Fainting spells, Swelling in the ankles, Chest pain, Prolonged hiccupping, Increased palpitations (irregular heartbeat) and Calf discomfort Follow Up Care When: IN 2 WEEKS Test Results: Test results from this visit will be discussed in further detail at your follow- up appointment, if applicable. Discharge Plan Admission Admit Date/Time: 09/30/23 21:02 Primary Reason for Your Visit: Heart failure exacerbation Attending Provider: Frank Fontana Primary Care Provider: Nasreen Sutton Consulting Providers: Anam Roldan; Daria Knight; Sera Sandhu Instructions Additional Instructions / Restrictions: Clvy-ewa-gyamsoo MiraLAX 17 g twice daily and Senna-S 2 tablet twice daily for 7 days. Patient has constipation. Discharge Orders/Prescriptions Prescriptions: New furosemide 40 mg Tablet 40 mg PO DAILY 30 Days Qty: 30 0RF Rx Instructions: Take extra 40 mg dose at 5 PM for increased leg swelling or weight gain 5 pounds in 1 week. Continued budesonide-formoterol [Symbicort] 160-4.5 mcg/actuation HFA aerosol inhaler 2 puff INHALATION BID Trelegy Ellipta 100-62.5-25 mcg blister with device 1 inh INHALATION DAILY lorazepam 1 mg tablet 1 mg PO TID PRN (Reason: ANXIETY ) progesterone micronized 200 mg capsule 400 mg PO QHS cyclobenzaprine 5 mg tablet 5 mg PO Q8H atorvastatin 80 mg Tablet 80 mg PO DAILY metoclopramide HCl [Reglan] 10 mg tablet 10 mg PO Q6H PRN (Reason: NAUSEA AND VOMTING ) Qty: 20 0RF albuterol sulfate 90 mcg/actuation HFA aerosol inhaler 2 puff inhalation Q4H PRN (Reason: SHORTNESS OF BREATH/WHEEZING ) Emgality Syringe 120 mg/mL syringe 120 mg subcut Q30D isosorbide mononitrate 30 mg tablet extended release 24 hr 30 mg PO DAILY trazodone 50 mg tablet 50 - 100 mg PO QHS atenolol 25 mg tablet 25 mg PO DAILY PRN (Reason: ANXIETY ) diclofenac sodium 3 % gel 1 ea topical BID PRN PRN (Reason: skin irritation) gabapentin 300 mg capsule 300 mg PO TID Emgality Pen 120 mg/mL pen injector 120 mg subcut QMONTH levothyroxine 100 mcg tablet 200 mcg PO DAILY naratriptan 2.5 mg tablet 2.5 mg PO BID PRN (Reason: migraines) Rx Instructions: can repeat dose, two hours after first dose taken. do not exceed more than two doses in 24 hours. calcium carbonate 500 mg calcium (1,250 mg) tablet,chewable 1,000 mg PO Q6H PRN PRN (Reason: heartburn) citalopram 40 mg tablet 40 mg PO DAILY potassium chloride 10 mEq capsule, extended release 10 meq PO DAILY Qty: 90 3RF valsartan 320 mg tablet 160 mg PO BID Qty: 90 3RF Discontinued amlodipine 10 mg tablet 10 mg PO DAILY Qty: 90 3RF Referrals / Follow Up: Nasreen Sutton MD [Primary Care Provider] - 10/14/23 3:40 pm Sera Sandhu MD [Med Staff - Consulting] - Within 1 Month Wes Medeiros MD [Med Staff - Active Staff] - Within 2 Weeks Disposition Disposition (needs filled in before D/C Order can be placed): Home Health Service
--- NOTE | 2023-10-07 10:40 | NURSING ---
This RN taking over care at this time
--- NOTE | 2023-10-07 11:15 | DS.PCM_ITS ---
Providers Date of Admission: 09/30/23 Date of Discharge: 10/07/23 Primary Care Physician: Nasreen Sutton MD Consultations 10/03/23 10:07 Consult: Nephrology Routine Consulting Provider: Sera Sandhu Reason for Consult: MARYANA, CHF EMERGENT Consult: No Notified: Yes Date Notified: 10/03/23 Time Notified: 10:08 Method of Notification: Text Reason For Visit: CHF EXACERBATION Diagnosis Discharge Diagnosis (1) CHF exacerbation: Status: Chronic Code(s): I50.9 - Heart failure, unspecified Plan 53-year-old female with multiple comorbidities was admitted with shortness of breath, bilateral lower extremity edema, dyspnea on exertion, hypoxia 86% on room air symptom complex suggestive of CHF exacerbation. Patient was admitted in PCU. #Hypoxia due to acute exacerbation of HFrEF * Has known EF of 35%, 2D echo done on September 07, 2023. * Hypoxia resolved on admission. Chest x-ray was negative and she did not have any elevated BNP level may be falsely low from super morbid obesity. * She is however being diuresed with IV Lasix 40 mg twice daily. On valsartan. * Monitor intake and output. Fluid restriction 1500 cc daily. * COVID, influenza and RSV rapid screen was negative. Respiratory panel negative. 10/02: Hypoxia is better 93% on room air. Requires BiPAP at night. Probably has sleep apnea 10/03: Patient is actively not short of breath or in respiratory distress. Pulse ox in the morning 95% on room air, 94% on 2 L oxygen. 10/04: 93% on 3 L of oxygen earlier was 95% on room air. Does not look objectively short of breath. 10/05: Home oxygen qualification test. Currently pulse ox 95% on 2 L of oxygen. Patient felt dizzy and fatigue therefore requested to stay 1 more night. Follow-up cardiology as an outpatient Dr. Wes Medeiros in 2 weeks 10/06: Patient on 92% of home oxygen. No dizziness or fatigue. Patient moved her bowel. Discharged home. #Acute on chronic migraine: * Headache is improved. She sees a neurologist in [place]. She was given a dose of steroids on admission for the headache. * On rimegapant prn. * monitor. 10/06: Acute headache resolved. # CKD stage IIIb: * Creatinine is 1.53. Baseline creatinine appears to fluctuate. * It was around 1.1 just in July 2023 but historically has been between 1.2-1.4. * She is on Lasix as well which may have caused further elevated BUN/creatinine. * BUNs/creatinine 14/1.28. Continue Lasix 40 mg IV daily 10/02: Nephrology consult reviewed. Lasix 40 mg IV changed to oral. Renal ultrasound ordered and done but not reported. 10/03: Kidneys and bladder ultrasound reviewed. Findings consistent with bilateral parapelvic renal cyst and possible nonobstructive tiny calculi. Distended bladder volume 607 mL with normal wall thickness and no mass or calculi. Creatinine 1.58 no significant increase. 10/04: Creatinine 1.45. Celluloid Trimmer is following 10/05: Creatinine improved to 1.33. Prescription for Lasix 40 mg oral daily. Potassium is normal. On potassium 10 mEq supplement. 10/06: Follow-up with the accounting professor. Same instruction stays good. No change #Hypothyroidism: On Synthroid #Hypertension: On amlodipine and valsartan #Depression: Escitalopram #Super morbid obesity: BMI is 52. Complicates acute care, expected recovery and prognosis. #Hyperlipidemia: On statin #COPD. Not in exacerbation. Breathing treatments bronchodilators. Mild abdominal pain probably due to constipation: Abdominal x-ray was done which shows moderate amount of feces. No acute abnormality. Patient refused for enema. Did not had BM for 4 to 5 days. Dulcolax 10 mg oral and suppository ordered. 10/03: Abdominal x-ray reviewed. Moderate to severe amount of feces in the colon. No free air identified. Mild gaseous distention of distal transverse and descending colon. Patient has been refusing for enema and Dulcolax suppository and discussed with her. At last she agreed for suppository and enema that is ordered. Dulcolax 10 mg oral also ordered. 10/04: Patient had good bowel movement after enema and suppository. Started on MiraLAX colon prep regimen with instruction to discontinue if she gets liquid BM. 10/05: She said she had 2 bowel movements yesterday. Advised to continue MiraLAX 17 g twice daily and senna S2 tablet twice daily. 10/06, she had 1-2 bowel movement last night. Continue same regimen. DVT prophylaxis: Lovenox Clinical Impression(s) from Imaging Studies Chest X-Ray 09/30/23 19:25 IMPRESSION: No radiographic evidence of acute cardiopulmonary disease. Electronically Signed: Solomon Corona MD at 20:10 EDT , Abdomen X-Ray 10/03/23 10:06 IMPRESSION: Moderate amount of feces in the colon. No acute abnormality. Electronically Signed: Mat Barbosa MD at 14:42 EDT , Medications at Discharge Home Medications citalopram 40 mg tablet 40 mg PO DAILY DEPRESSION/ANXIETY 07/27/19 budesonide-formoterol HFA 160 mcg-4.5 mcg/actuation aerosol inhaler (Symbicort) 2 puff inhalation BID COPD 04/02/20 lorazepam 1 mg tablet 1 mg PO TID PRN ANXIETY 05/04/22 progesterone micronized 200 mg capsule 400 mg PO QHS HORMONES 10/11/22 metoclopramide HCl 10 mg tablet (Reglan) 10 mg PO Q6H PRN NAUSEA AND VOMTING #20 tabs 01/07/23 atorvastatin 80 mg tablet 80 mg PO DAILY CHOLESTEROL 02/10/23 cyclobenzaprine 5 mg tablet 5 mg PO Q8H MUSCLE SPASMS 02/10/23 potassium chloride 10 mEq capsule,extended release 10 meq PO DAILY SUPPLEMENT #90 caps 05/02/23 fluticasone fur. 100 mcg-umeclid 62.5 mcg-vilant 25 mcg inhalat.powder (Trelegy Ellipta) 1 inh inhalation DAILY COPD 06/20/23 albuterol sulfate 90 mcg/actuation aerosol inhaler 2 puff inhalation Q4H PRN SHORTNESS OF BREATH/WHEEZING 07/29/23 galcanezumab-gnlm 120 mg/mL subcutaneous syringe (Emgality) 120 mg subcut Q30D migraines 07/29/23 isosorbide mononitrate 30 mg tablet,extended release 24 hr 30 mg PO DAILY HEART 07/29/23 trazodone 50 mg tablet 50 - 100 mg PO QHS SLEEP 07/29/23 atenolol 25 mg tablet 25 mg PO DAILY PRN ANXIETY 08/23/23 valsartan 320 mg tablet 160 mg (1/2 x 320 mg) PO BID BLOOD PRESSURE #90 tabs 09/13/23 diclofenac sodium 3 % topical gel 1 ea topical BID PRN PRN skin irritation 09/30/23 gabapentin 300 mg capsule 300 mg PO TID pain 09/30/23 galcanezumab-gnlm 120 mg/mL subcutaneous pen injector (Emgality Pen) 120 mg subcut QMONTH migraine 09/30/23 calcium carbonate 1,000 mg PO Q6H PRN PRN heartburn 10/01/23 levothyroxine 100 mcg tablet 200 mcg PO DAILY thyroid 10/01/23 naratriptan 2.5 mg tablet 2.5 mg PO BID PRN migraines 10/01/23 furosemide 40 mg tablet 40 mg PO DAILY 30 days #30 tabs 10/06/23 Physical Exam Narrative Seen and examined. Shortness of breath better. On room air. Abdominal pain is also improved was mainly due to constipation. Had physical therapy. Physical exam General: Alert, Oriented x3, Cooperative. BMI 52.0 kg/m?, super morbid obesity HEENT: Atraumatic, PERRLA, EOMI, Normocephalic Oral: No Gingival or Mucosal Lesions/ Ulcerations Neck: Supple, No JVD, Negative Carotid Bruits Chest wall/Lungs: Air entry diminished in bilateral lung bases. On CPAP. No wheezing. Cardiovascular: Regular rate, Regular Rhythm, Normal S1, Normal S2, No M/G/R Abdomen: Bowel Sounds Present, Soft, Non-Distended. No appreciable tenderness : No dysuria. No renal angle tenderness. No suprapubic tenderness. Extremities: Mild pitting leg edema bilaterally. Capillary Refill Less than 3 Seconds Skin: No rashes, No breakdown Musculoskeletal: No Tenderness to Palpation of Joints or Extremities Neurological: Cranial nerves II-XII grossly intact, DTR 2+/4. No acute focal neurological deficit. Psych/Mental Status: Flat affect Weight / BMI Weight Weight: 296 lb 1.293 oz Body Mass Index (BMI) 50.8 ABG / Lab / Microbiology Data 10/06/23 06:15 10/06/23 06:15 Microbiology: Microbiology 10/01/23 14:51 Mucosa - Nasopharyngeal Respiratory Panel (PCR) - Final 09/30/23 18:57 Mucosa - Nose SARS-CoV-2, Influenza & RSV (PCR) - Final D/C Instructions Discharge Diet: 1800 Calorie Control Diet, 8 Cup Fluid Restriction and 2000 mg Sodium Diet Weight Bearing Status: Weight bearing as tolerated Call your doctor if you observe: Fever of 101 or Higher, Coldness, Increased Pain, Numbness or Tingling, Change in Color, Inability to urinate, Inability to have a bowel movement, Shortness of breath, Dizziness, Fainting spells, Swelling in the ankles, Chest pain, Prolonged hiccupping, Increased palpitations (irregular heartbeat) and Calf discomfort When: IN 2 WEEKS Meaningful Use Info Meaningful Use Meaningful Use Diagnoses (Choose all that apply): None applicable Ischemic Stroke Statin Dosing Therapy Reference: STATIN DOSE THERAPY REFERENCE: * Patients > 75 years receive moderate or high dose statin therapy. * Patients 75 years or YOUNGER should receive HIGH intensity statin dose unless contraindicated. You will be required to document reason for non-treatment if statin daily dose does not meet guidelines. HIGH DOSE STATIN THERAPY DAILY Atorvastatin > than or = to 40 mg Rosuvastatin > than or = to 20 mg Amlodipine + Atorvastatin > than or = to 2.5/40 mg Ezetimibe + Simvastatin 10/80 mg Simvastatin 80mg Discharge Plan Admission Admit Date/Time: 09/30/23 21:02 Primary Reason for Your Visit: Heart failure exacerbation Attending Provider: Frank Fontana Primary Care Provider: Nasreen Sutton Consulting Providers: Anam Roldan; Daria Knight; Sera Sandhu Instructions Additional Instructions / Restrictions: Tkma-ycy-xoysbif MiraLAX 17 g oral twice daily and Senna-S 2 tablet oral twice daily for 7 days. Patient has constipation. Discharge Orders/Prescriptions Prescriptions: New furosemide 40 mg Tablet 40 mg PO DAILY 30 Days Qty: 30 0RF Rx Instructions: Take extra 40 mg dose at 5 PM for increased leg swelling or weight gain 5 pounds in 1 week. Continued budesonide-formoterol [Symbicort] 160-4.5 mcg/actuation HFA aerosol inhaler 2 puff INHALATION BID Trelegy Ellipta 100-62.5-25 mcg blister with device 1 inh INHALATION DAILY lorazepam 1 mg tablet 1 mg PO TID PRN (Reason: ANXIETY ) progesterone micronized 200 mg capsule 400 mg PO QHS cyclobenzaprine 5 mg tablet 5 mg PO Q8H atorvastatin 80 mg Tablet 80 mg PO DAILY metoclopramide HCl [Reglan] 10 mg tablet 10 mg PO Q6H PRN (Reason: NAUSEA AND VOMTING ) Qty: 20 0RF albuterol sulfate 90 mcg/actuation HFA aerosol inhaler 2 puff inhalation Q4H PRN (Reason: SHORTNESS OF BREATH/WHEEZING ) Emgality Syringe 120 mg/mL syringe 120 mg subcut Q30D isosorbide mononitrate 30 mg tablet extended release 24 hr 30 mg PO DAILY trazodone 50 mg tablet 50 - 100 mg PO QHS atenolol 25 mg tablet 25 mg PO DAILY PRN (Reason: ANXIETY ) diclofenac sodium 3 % gel 1 ea topical BID PRN PRN (Reason: skin irritation) gabapentin 300 mg capsule 300 mg PO TID Emgality Pen 120 mg/mL pen injector 120 mg subcut QMONTH levothyroxine 100 mcg tablet 200 mcg PO DAILY naratriptan 2.5 mg tablet 2.5 mg PO BID PRN (Reason: migraines) Rx Instructions: can repeat dose, two hours after first dose taken. do not exceed more than two doses in 24 hours. calcium carbonate 500 mg calcium (1,250 mg) tablet,chewable 1,000 mg PO Q6H PRN PRN (Reason: heartburn) citalopram 40 mg tablet 40 mg PO DAILY potassium chloride 10 mEq capsule, extended release 10 meq PO DAILY Qty: 90 3RF valsartan 320 mg tablet 160 mg PO BID Qty: 90 3RF Discontinued amlodipine 10 mg tablet 10 mg PO DAILY Qty: 90 3RF Referrals / Follow Up: Nasreen Sutton MD [Primary Care Provider] - 10/14/23 3:40 pm Sera Sandhu MD [Med Staff - Consulting] - Within 1 Month (Paper work sent to 's Office. They will call and set up appointment time.) Wes Medeiros MD [Med Staff - Active Staff] - 10/27/23 2:00 pm Disposition Disposition (needs filled in before D/C Order can be placed): Home Health Service Charges/Coding Visit Charges Inpatient E&M: 93824 Disch Hosp >30min
--- NOTE | 2023-10-07 11:47 | CASEMGMT ---
Patient has order for discharge. INEZ SHORE in to discuss needs at discharge. No changes from yesterday. Patient will discharge home with [facility]. Patient denied further questions or concerns. INEZ SHORE updated discharge chief of planning.
[2023-10-07 12:12] VITALS: BP 124/89; PULSE 95; RESP 18; TEMP 36.5; O2SAT 94
== END 2023-10-07 12:15 | disposition home health service (06) | DRG 291 ==
LOC: ED 18:51 → PCU 21:27
PROVIDERS: Nurse Practitioner Adult Health; Student in an Organized Health Care Education/Training Program; Emergency Provider Emergency Medicine; PCP Family Medicine; Visit Provider Internal Medicine
DX: I13.0 Hypertensive heart and chronic kidney disease with heart failure and stage 1 through stage 4 chronic kidney disease, or unspecified chronic kidney disease (principal); I50.21 Acute systolic (congestive) heart failure; N17.9 Acute kidney failure, unspecified; Z68.44 Body mass index [BMI] 60.0-69.9, adult; E11.22 Type 2 diabetes mellitus with diabetic chronic kidney disease; N18.32 Chronic kidney disease, stage 3b; J44.9 Chronic obstructive pulmonary disease, unspecified; F32.A Depression, unspecified; E03.9 Hypothyroidism, unspecified; E66.01 Morbid (severe) obesity due to excess calories; E87.6 Hypokalemia; G43.909 Migraine, unspecified, not intractable, without status migrainosus; E78.5 Hyperlipidemia, unspecified; I25.10 Atherosclerotic heart disease of native coronary artery without angina pectoris; G47.33 Obstructive sleep apnea (adult) (pediatric); K59.00 Constipation, unspecified; Z79.890 Hormone replacement therapy; G89.29 Other chronic pain; Z79.1 Long term (current) use of non-steroidal anti-inflammatories (NSAID); Z79.51 Long term (current) use of inhaled steroids; N20.0 Calculus of kidney; Z86.73 Personal history of transient ischemic attack (TIA), and cerebral infarction without residual deficits; Z86.718 Personal history of other venous thrombosis and embolism
CPT/HCPCS: 36415; 36600; 71046; 74019; 76770; 80048; 80061; 81001; 82570; 82803; 83880; 84156; 84443; 84484; 85025; 85610; 85730; 87631; 87633; 93005; 94002; 94003; 94640; 94762; 97110; 97162; 97166; 97530; 97535; 97802; 99285; A4216; J1940; J2405; J3030

== ENCOUNTER 2023-10-23 14:54 | Emergency (ER) | payer MEDICARE, MEDICAID, SELFPAY ==
[2023-10-23 14:55] VITALS: BP 157/92; PULSE 106; RESP 18; TEMP 36.6; O2SAT 100; BMI 52.4
--- NOTE | 2023-10-23 15:45 | EX.ED.VIS.EY ---
HPI <ROBLES Sheets - Last Filed: 10/23/23 20:02> History of Present Illness Chief Complaint: Edema Narrative Narrative: Patient presenting today with eye irritation and burning she has had intermittently over the last several months. She reports that the irritation makes it difficult for her to keep the eye open, her symptoms worsened last night. 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 When asked why she has not followed up she reports, I did not think about it. She reports that today it seemed to be worse than usual, prompting her to come in. She denies any injury or foreign body to her eye, purulent discharge, decreased visual acuity, fevers, and chills. She does have a history of lower extremity edema, she felt like it was worse today. She was several hours late on taking her diuretic yesterday and has not yet taken it today. She denies any pain to her legs. She is compliant with her Eliquis, she denies any chest pain or shortness of breath. [facility] <ROBLES Sheets - Last Filed: 10/23/23 20:02> [facility] Medical History MARYANA (acute kidney injury) Walker as ambulation aid Ambulates with cane Low iron History of renal disease High cholesterol DVT (deep venous thrombosis) PONV (postoperative nausea and vomiting) Stroke/cerebrovascular accident Sleep apnea Fall [facility]iology follow-up encounter Scalp hematoma Pulmonary embolism Post-menopausal Thyroid disease Injury of head and neck Dietary restriction Difficulty swallowing BiPAP (biphasic positive airway pressure) dependence COPD (chronic obstructive pulmonary disease) Shortness of breath on exertion Leg cramps History of pain when walking History of edema History of echocardiogram History of stress test Syncope Abnormal glucose Noncompliance DAVY treated with BiPAP UTI (urinary tract infection) Vitamin D deficiency Restless leg syndrome Vitamin B12 deficiency Iron deficiency anemia History of chronic back pain Wears glasses Arthritis Non-smoker Hydronephrosis Depression Anemia Migraine headache Chronic kidney disease Diabetes mellitus Gout Celiac disease Hyperlipidemia GERD (gastroesophageal reflux disease) Dyspnea on exertion Chest pain Hypersomnia Cardiac murmur Microcytic anemia Hypertension Morbid obesity with BMI of 40.0-44.9, adult Asthma Hypothyroidism Anxiety Home Medications ?Medication ?Instructions ?Recorded ?Last Taken ?Type citalopram 40 mg tablet 40 mg PO DAILY DEPRESSION/ANXIETY 07/27/19 09/30/23 History budesonide-formoterol HFA 160 2 puff inhalation BID COPD 04/02/20 09/30/23 History mcg-4.5 mcg/actuation aerosol inhaler (Symbicort) lorazepam 1 mg tablet 1 mg PO TID PRN ANXIETY 05/04/22 02/08/23 History progesterone micronized 200 mg 400 mg PO QHS HORMONES 10/11/22 09/30/23 History capsule metoclopramide HCl 10 mg tablet 10 mg PO Q6H PRN NAUSEA AND 01/07/23 Unknown Rx (Reglan) VOMTING #20 tabs atorvastatin 80 mg tablet 80 mg PO DAILY CHOLESTEROL 02/10/23 09/30/23 History cyclobenzaprine 5 mg tablet 5 mg PO Q8H MUSCLE SPASMS 02/10/23 09/30/23 History fluticasone fur. 100 mcg-umeclid 1 inh inhalation DAILY COPD 06/20/23 09/30/23 History 62.5 mcg-vilant 25 mcg inhalat.powder (Trelegy Ellipta) albuterol sulfate 90 mcg/actuation 2 puff inhalation Q4H PRN 07/29/23 08/22/23 History aerosol inhaler SHORTNESS OF BREATH/WHEEZING galcanezumab-gnlm 120 mg/mL 120 mg subcut Q30D migraines 07/29/23 Unknown History subcutaneous syringe (Emgality) trazodone 50 mg tablet 50 - 100 mg PO QHS SLEEP 07/29/23 09/30/23 History atenolol 25 mg tablet 25 mg PO DAILY PRN ANXIETY 08/23/23 08/22/23 History diclofenac sodium 3 % topical gel 1 ea topical BID PRN PRN skin 09/30/23 Unknown History irritation gabapentin 300 mg capsule 300 mg PO TID pain 09/30/23 09/30/23 History galcanezumab-gnlm 120 mg/mL 120 mg subcut QMONTH migraine 09/30/23 Unknown History subcutaneous pen injector (Emgality Pen) calcium carbonate 1,000 mg PO Q6H PRN PRN heartburn 10/01/23 Unknown History levothyroxine 100 mcg tablet 200 mcg PO DAILY thyroid 10/01/23 09/30/23 History naratriptan 2.5 mg tablet 2.5 mg PO BID PRN migraines 10/01/23 Unknown History furosemide 40 mg tablet 40 mg PO DAILY #30 tabs 10/18/23 Unknown Rx isosorbide mononitrate 30 mg 30 mg PO DAILY HEART #30 tabs 10/18/23 Unknown Rx tablet,extended release 24 hr potassium chloride 10 mEq 10 meq PO DAILY SUPPLEMENT #30 10/18/23 Unknown Rx capsule,extended release caps valsartan 320 mg tablet 160 mg (1/2 x 320 mg) PO BID BLOOD 10/18/23 Unknown Rx PRESSURE #30 tabs Allergy/AdvReac Type Severity Reaction Status Date / Time hydrochlorothiazide AdvReac Intermediate Contributes Verified 10/23/23 14:55 to gout naproxen (From Naprosyn) AdvReac Intermediate Nausea Verified 10/23/23 14:55 aspirin AdvReac Nausea Verified 10/23/23 14:55 Family History Father , Age 72 Hypertension Mother CAD (coronary artery disease) Myocardial infarction, Onset Age: 55 Hypertension Sister CAD (coronary artery disease) Brother Cancer Surgical History History of cardiac catheterization History of History of carpal tunnel surgery of right wrist History of carpal tunnel surgery of left wrist Hx of cystoscopy History of left heart catheterization (11/11/20) history of uterine ablation Social History household members: none housing: apartment Smoking Status: Never smoker alcohol intake: never substance use type: does not use caffeine: No ROS <ROBLES Sheets - Last Filed: 10/23/23 20:02> ROS ED Constitutional Constitutional ED: Denies chills or fever(s) Eyes Eyes: Reports irritation and tearing; Denies blurry vision Cardiovascular Cardiovascular: Denies chest pain Respiratory/Chest Respiratory/Chest: Denies dyspnea Gastrointestinal Gastrointestinal: Denies abdominal pain, nausea or vomiting Musculoskeletal Musculoskeletal: Denies arthralgias or myalgias Integumentary Denies rash Neurologic Neurologic: Denies weakness EXAM <ROBLES Sheets - Last Filed: 10/23/23 20:02> Physical Exam Const Vital Signs: 10/23/23 14:55 Temperature 98 F Temperature Source Temporal Pulse Rate 106 H Respiratory Rate 18 Blood Pressure 157/92 H Blood Pressure Mean 113 Pulse Ox 100 Positive well nourished, well developed and no apparent distress General Appearance ED: well developed HEENT Reports normocephalic, head/scalp atraumatic and other atraumatic, trauma, tenderness and other Mouth ED: Yes moist mucous membranes normal Eyes PERRL and EOMs intact bilaterally General Eye ED: Yes other Other Details: Right-sided conjunctival injection, PERRL, EOMs intact bilaterally, no periorbital erythema Neck full ROM and supple Chest Wall inspection of chest normal Resp normal respiratory effort and clear to auscultation bilaterally Cardio regular rate and regular rhythm GI soft to palpation, non-tender, non-distended and no masses Back/Spine normal ROM and normal to inspection Extremity normal to inspection and full ROM Extremity Narrative: Bilateral nonpitting lower extremity edema to the ankles and feet. Neuro oriented x3, CN's II-XII intact bilaterally, moves all extremities, no focal motor deficits and no sensory deficits noted Sensorium / Orientation: awake and alert Psych mental status grossly normal and thought process normal Skin no rashes or lesions noted and no wounds [facility] <ROBLES Sheets - Last Filed: 10/23/23 20:02> [facility] Narrative Medical decision making narrative: Patient presenting today due to irritation and pain to her right eye that started last night, She has had this off and on over the past few months. She has not seen ophthalmology for this. I did perform a fluorescein stain to her right eye with tetracaine administration, I did notice a small corneal abrasion at the 7 o'clock position. I will place patient on erythromycin ointment. She does not have any signs of periorbital or orbital cellulitis. She is also complaining of bilateral lower extremity edema, she has minimal edema bilaterally and does take Lasix at home for this. I have encouraged that she take her Lasix as prescribed, she was late on her dose yesterday. Given she is compliant with Eliquis I have low concern for DVT. She is not complaining of any chest pain or shortness of breath to indicate CHF exacerbation. I encouraged that she follow-up with ophthalmology as an outpatient as well as her PCP, she will be discharged home in stable condition. I have personally performed a face to face assessment of the patient and have reviewed the LEIGH note. I personally made/approved the management plan and take responsibility for the patient management. I performed a substantive portion of the visit including all aspects of the following. My winslow findings include: 2-month history intermittent right eye pain for the following foreign body sensation. Chronic leg swelling on diuretics. No dyspnea or orthopnea. Exam minimal swelling lower extremities. Nontoxic no respiratory complaints. Patient I will stain noting abrasion to 7 o'clock position of right eye. Patient started antibiotic for her right eye. She will continue her Lasix at home for leg swelling as she is due for this when she is at home. Outpatient follow-up with ophthalmology given. <Dr. Gm Martinez, DO - Last Filed: 10/23/23 21:32> [facility] MDM Narrative Medical decision making narrative: I have personally performed a face to face assessment of the patient and have reviewed the LEIGH note. I personally made/approved the management plan and take responsibility for the patient management. I performed a substantive portion of the visit including all aspects of the following. My winslow findings include: 2-month history intermittent right eye pain for the following foreign body sensation. Chronic leg swelling on diuretics. No dyspnea or orthopnea. Exam minimal swelling lower extremities. Nontoxic no respiratory complaints. Patient I will stain noting abrasion to 7 o'clock position of right eye. Patient started antibiotic for her right eye. She will continue her Lasix at home for leg swelling as she is due for this when she is at home. Outpatient follow-up with ophthalmology given. Discharge Plan Triage Chief Complaint: Edema Other Complaint: Eye Problem ED Midlevel Provider: Nafisa Valadez ED Provider: Gm Martinez Dx/Rx/DC Orders Clinical Impression: Corneal abrasion, right, Leg edema Instructions: ED Corneal Abrasion, ED Lymphedema Prescriptions: No Action budesonide-formoterol [Symbicort] 160-4.5 mcg/actuation HFA aerosol inhaler 2 puff INHALATION BID Trelegy Ellipta 100-62.5-25 mcg blister with device 1 inh INHALATION DAILY lorazepam 1 mg tablet 1 mg PO TID PRN (Reason: ANXIETY ) progesterone micronized 200 mg capsule 400 mg PO QHS cyclobenzaprine 5 mg tablet 5 mg PO Q8H atorvastatin 80 mg Tablet 80 mg PO DAILY metoclopramide HCl [Reglan] 10 mg tablet 10 mg PO Q6H PRN (Reason: NAUSEA AND VOMTING ) Qty: 20 0RF albuterol sulfate 90 mcg/actuation HFA aerosol inhaler 2 puff inhalation Q4H PRN (Reason: SHORTNESS OF BREATH/WHEEZING ) Emgality Syringe 120 mg/mL syringe 120 mg subcut Q30D trazodone 50 mg tablet 50 - 100 mg PO QHS atenolol 25 mg tablet 25 mg PO DAILY PRN (Reason: ANXIETY ) diclofenac sodium 3 % gel 1 ea topical BID PRN PRN (Reason: skin irritation) gabapentin 300 mg capsule 300 mg PO TID Emgality Pen 120 mg/mL pen injector 120 mg subcut QMONTH levothyroxine 100 mcg tablet 200 mcg PO DAILY naratriptan 2.5 mg tablet 2.5 mg PO BID PRN (Reason: migraines) Rx Instructions: can repeat dose, two hours after first dose taken. do not exceed more than two doses in 24 hours. calcium carbonate 500 mg calcium (1,250 mg) tablet,chewable 1,000 mg PO Q6H PRN PRN (Reason: heartburn) citalopram 40 mg tablet 40 mg PO DAILY furosemide 40 mg tablet 40 mg PO DAILY Qty: 30 11RF potassium chloride 10 mEq capsule, extended release 10 meq PO DAILY Qty: 30 11RF isosorbide mononitrate 30 mg tablet extended release 24 hr 30 mg PO DAILY Qty: 30 11RF valsartan 320 mg tablet 160 mg PO BID Qty: 30 11RF Primary Care Provider: Nasreen Sutton Referrals: Nasreen Sutton MD [Primary Care Provider] - 5-7 Days Barrett Michael MD [Med Staff - Active Staff] - 3-5 Days Activity Restrictions/Additional Instructions: Please follow-up with ophthalmology, place 1/2 inch of ointment to the right eye 4 times a day for the next 5 days. Print Language: [place] Disposition Disposition: Home, Self Care Discharge Date/Time: 10/23/23 16:55
[2023-10-23] MEDS: Acetaminophen 325 MG Tablet 650 MG PO (15:56)
[2023-10-23] MEDS: Tetracaine 0.5% Ophthalmic Bottle 1 DRP RIGHT EYE (15:57)
[2023-10-23] MEDS: Fluorescein 1 MG STRIP 1 STRIP EACH EYE (15:57)
[2023-10-23] MEDS: Erythromycin Base 1 OPTH.TUBE 1 APPLIC RIGHT EYE (16:54)
[2023-10-23 16:55] VITALS: BP 135/85; PULSE 97; RESP 18; TEMP 36.2; O2SAT 100
== END 2023-10-23 16:55 | disposition home or self-care (01) ==
PROVIDERS: Emergency Provider Emergency Medicine; PCP Family Medicine; Visit Provider Emergency Medicine
DX: S05.01XA Injury of conjunctiva and corneal abrasion without foreign body, right eye, initial encounter (principal); J44.9 Chronic obstructive pulmonary disease, unspecified; X58.XXXA Exposure to other specified factors, initial encounter; R60.0 Localized edema; I12.9 Hypertensive chronic kidney disease with stage 1 through stage 4 chronic kidney disease, or unspecified chronic kidney disease; N18.9 Chronic kidney disease, unspecified; E78.00 Pure hypercholesterolemia, unspecified; Z79.01 Long term (current) use of anticoagulants; Z79.51 Long term (current) use of inhaled steroids; Z79.899 Other long term (current) drug therapy
CPT/HCPCS: 99284

== ENCOUNTER 2023-11-06 15:07 | Emergency (ER) | payer MEDICARE, MEDICAID, SELFPAY ==
[2023-11-06] VITALS (12 sets, daily range): BP systolic 102–156; BP diastolic 57–98; PULSE 80–104; RESP 14–22; TEMP 35.7–36.6; O2SAT 92–96; BMI 51.4
--- NOTE | 2023-11-06 15:35 | EKG12_ITS ---
Test Reason : CP Blood Pressure : */* mmHG Vent. Rate : 74 BPM Atrial Rate : 74 BPM P-R Int : 144 ms QRS Dur : 92 ms QT Int : 426 ms P-R-T Axes : 56 -9 162 degrees QTcB Int : 472 ms Normal sinus rhythm with sinus arrhythmia Nonspecific T wave abnormality Abnormal ECG Confirmed by MIGUEL GONZALEZ, MAGALI ([id number]), newspaper editor managing SONJA ZABALA ([id number]) on 01/16/2024 9:44:26 AM Referred By: Confirmed By: MAGALI RIVERA MD
[2023-11-06 15:40] LABS: Absolute Lymphocyte Count 1.75 X10^3/uL (0.83-4.51); Absolute Neutrophil Count 5.5 X10^3/uL (2.0-7.7); Basophil# 0.07 X10^3/uL; Basophil% 0.8 % (0-1); Eosinophil# 0.41 X10^3/uL; Eosinophils% 4.8 % (0-5); Hematocrit 35.1 % (37-47); Hemoglobin 10.5 g/dL (12.0-15.0); Lymphocyte # 1.75 X10^3/ul (0.83-4.51); Lymphocyte % 20.3 % (19-41); Mean Corp Hgb Conc 29.9 g/dL (32-36); Mean Corpuscular Hgb 26.4 pg (27.0-32.0); Mean Corpuscular Volume 88.4 fL (81-99); Mean Platelet Vol. 9.4 fl (6.2-12.0); Monocyte# 0.84 X10^3/uL; Monocyte% 9.8 % (0-10); NRBC Flagged by Analyzer 0 % (0-5); Neutrophil # 5.49 X10^3/uL (2.7-7.7); Neutrophil % 63.7 % (47-70); Platelet Count 418 K/mm3 (150-450); RBC Distribution Width CV 17.1 % (11.6-14.6); RBC Distribution Width SD 54.9 fl (35.1-43.9); Red Blood Count 3.97 M/mm3 (4.2-5.4); White Blood Count 8.6 K/mm3 (4.4-11.0)
--- NOTE | 2023-11-06 15:46 | ED.VIS.CHEST ---
HPI History of Present Illness Chief Complaint: Chest Pain Informant: patient Onset/Context/Timing Onset: Today and Hours Activity at onset: gradual and onset Timing: Continuous Quality: Positive for Aching and Burning Location: Substernal Current Severity: Mild Worsened By: Nothing Relieved By: Nothing Associated Symptoms: Positive for Nausea and Dyspnea; Negative for Cough, Lightheadedness or Palpitations Narrative Narrative: 53-year-old female history of COPD, diabetes, VT, pulmonary emboli on the blood thinner Eliquis. States that she was hospitalized 2 to 3 weeks ago told she had an VT did not have a heart catheterization at that time. Woke this morning around 5 AM with midsternal chest pain. Described as a burning or dull discomfort. Radiates to her right shoulder. No hemoptysis. Send prior history of similar pain. Last heart cath was around 2020. No stents. She does get chest pain shortness of breath with exertion. Prior Similar Symptoms: Yes Recent Illness/Hospitalization: Yes CVD Risk Factors: Positive for Diabetes PE Risk Factors: Positive for Recent Immobilization and Prior DVT or PE; Negative for Recent Travel/Surgery, Cancer or OCP + Smoking + >/=35 TAD Risk Factors: Negative for Marfan's Syndrome [facility] Medical History MARYANA (acute kidney injury) Walker as ambulation aid Ambulates with cane Low iron History of renal disease High cholesterol DVT (deep venous thrombosis) PONV (postoperative nausea and vomiting) Stroke/cerebrovascular accident Sleep apnea Fall Cardiology follow-up encounter Scalp hematoma Pulmonary embolism Post-menopausal Thyroid disease Injury of head and neck Dietary restriction Difficulty swallowing BiPAP (biphasic positive airway pressure) dependence COPD (chronic obstructive pulmonary disease) Shortness of breath on exertion Leg cramps History of pain when walking History of edema History of echocardiogram History of stress test Syncope Abnormal glucose Noncompliance DAVY treated with BiPAP UTI (urinary tract infection) Vitamin D deficiency Restless leg syndrome Vitamin B12 deficiency Iron deficiency anemia History of chronic back pain Wears glasses Arthritis Non-smoker Hydronephrosis Depression Anemia Migraine headache Chronic kidney disease Diabetes mellitus Gout Celiac disease Hyperlipidemia GERD (gastroesophageal reflux disease) Dyspnea on exertion Chest pain Hypersomnia Cardiac murmur Microcytic anemia Hypertension Morbid obesity with BMI of 40.0-44.9, adult Asthma Hypothyroidism Anxiety Home Medications ?Medication ?Instructions ?Recorded ?Last Taken ?Type citalopram 40 mg tablet 40 mg PO DAILY DEPRESSION/ANXIETY 07/27/19 09/30/23 History budesonide-formoterol HFA 160 2 puff inhalation BID COPD 04/02/20 09/30/23 History mcg-4.5 mcg/actuation aerosol inhaler (Symbicort) lorazepam 1 mg tablet 1 mg PO TID PRN ANXIETY 05/04/22 02/08/23 History progesterone micronized 200 mg 400 mg PO QHS HORMONES 10/11/22 09/30/23 History capsule metoclopramide HCl 10 mg tablet 10 mg PO Q6H PRN NAUSEA AND 01/07/23 Unknown Rx (Reglan) VOMTING #20 tabs atorvastatin 80 mg tablet 80 mg PO DAILY CHOLESTEROL 02/10/23 09/30/23 History cyclobenzaprine 5 mg tablet 5 mg PO Q8H MUSCLE SPASMS 02/10/23 09/30/23 History fluticasone fur. 100 mcg-umeclid 1 inh inhalation DAILY COPD 06/20/23 09/30/23 History 62.5 mcg-vilant 25 mcg inhalat.powder (Trelegy Ellipta) albuterol sulfate 90 mcg/actuation 2 puff inhalation Q4H PRN 07/29/23 08/22/23 History aerosol inhaler SHORTNESS OF BREATH/WHEEZING galcanezumab-gnlm 120 mg/mL 120 mg subcut Q30D migraines 07/29/23 Unknown History subcutaneous syringe (Emgality) trazodone 50 mg tablet 50 - 100 mg PO QHS SLEEP 07/29/23 09/30/23 History atenolol 25 mg tablet 25 mg PO DAILY PRN ANXIETY 08/23/23 08/22/23 History diclofenac sodium 3 % topical gel 1 ea topical BID PRN PRN skin 09/30/23 Unknown History irritation gabapentin 300 mg capsule 300 mg PO TID pain 09/30/23 09/30/23 History galcanezumab-gnlm 120 mg/mL 120 mg subcut QMONTH migraine 09/30/23 Unknown History subcutaneous pen injector (Emgality Pen) calcium carbonate 1,000 mg PO Q6H PRN PRN heartburn 10/01/23 Unknown History levothyroxine 100 mcg tablet 200 mcg PO DAILY thyroid 10/01/23 09/30/23 History naratriptan 2.5 mg tablet 2.5 mg PO BID PRN migraines 10/01/23 Unknown History furosemide 40 mg tablet 40 mg PO DAILY #30 tabs 10/18/23 Unknown Rx isosorbide mononitrate 30 mg 30 mg PO DAILY HEART #30 tabs 10/18/23 Unknown Rx tablet,extended release 24 hr potassium chloride 10 mEq 10 meq PO DAILY SUPPLEMENT #30 10/18/23 Unknown Rx capsule,extended release caps valsartan 320 mg tablet 160 mg (1/2 x 320 mg) PO BID BLOOD 10/18/23 Unknown Rx PRESSURE #30 tabs Allergy/AdvReac Type Severity Reaction Status Date / Time hydrochlorothiazide AdvReac Intermediate Contributes Verified 11/06/23 15:09 to gout naproxen (From Naprosyn) AdvReac Intermediate Nausea Verified 11/06/23 15:09 aspirin AdvReac Nausea Verified 11/06/23 15:09 Family History Father , Age 72 Hypertension Mother CAD (coronary artery disease) Myocardial infarction, Onset Age: 55 Hypertension Sister CAD (coronary artery disease) Brother Cancer Surgical History History of cardiac catheterization History of History of carpal tunnel surgery of right wrist History of carpal tunnel surgery of left wrist Hx of cystoscopy History of left heart catheterization (11/11/20) history of uterine ablation Social History household members: none housing: apartment Smoking Status: Never smoker alcohol intake: never substance use type: does not use caffeine: No ROS ROS ED ROS Narrative Chest pain. Shortness of breath. Denies fever denies nausea vomiting denies melena. Constitutional Constitutional ED: Denies chills or fever(s) Eyes Eyes: Reports none ENT ENT ED: Denies ear pain Cardiovascular Cardiovascular: Reports as per HPI and chest pain; Denies palpitations or racing heartbeat Respiratory/Chest Respiratory/Chest: Reports dyspnea and dyspnea on exertion; Denies cough Gastrointestinal Gastrointestinal: Denies abdominal pain, constipation, diarrhea or melena Genitourinary Genitourinary ED: Denies dysuria or hematuria Musculoskeletal Musculoskeletal: Denies arthralgias Integumentary Denies abscess Neurologic Neurologic: Denies headache(s) Psychiatric Psychiatric: Denies suicidal ideation Endocrine Endocrinology: Denies cold intolerance Hematologic/Lymphatic Hematologic/Lymphatic: Denies easy bleeding Allergic/Immunologic Allergic/Immunologic ED: Denies mouth swelling EXAM Physical Exam Narrative Exam Narrative: 52-year-old female sitting upright in bed. Vital signs are stable afebrile. No one else present in the room. No distress. Pulse ox 96% on room air no hypoxia. H EENT exam unremarkable. Neck nontender no JVD. Lungs clear to auscultation bilaterally. Heart regular rhythm rate about 100 no murmur. Chest wall ribs nontender. Abdomen soft nontender. Moving all 4 extremities. 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 Normal dorsi plantarflexion. Calves are nontender without edema. Neurologically she is awake and alert. No focal motor deficits. Const Vital Signs: 11/06/23 15:08 11/06/23 15:41 11/06/23 15:55 Temperature 96.2 F L Temperature Source Temporal Pulse Rate 104 H 97 Respiratory Rate 22 H Blood Pressure 156/98 H 122/85 H Blood Pressure Mean 117 Pulse Ox 96 96 Oxygen Delivery Method Room Air Room Air 11/06/23 16:00 11/06/23 16:01 11/06/23 16:02 Temperature Temperature Source Pulse Rate 98 98 98 Respiratory Rate 18 19 H Blood Pressure 103/77 103/77 116/90 H Blood Pressure Mean 85 98 Pulse Ox 93 94 Oxygen Delivery Method Room Air Room Air 11/06/23 16:05 11/06/23 16:07 11/06/23 16:18 Temperature Temperature Source Pulse Rate 96 80 95 Respiratory Rate 14 Blood Pressure 102/67 109/78 109/75 Blood Pressure Mean 88 86 Pulse Ox 93 Oxygen Delivery Method Room Air 11/06/23 17:00 11/06/23 18:00 Temperature Temperature Source Pulse Rate 100 98 Respiratory Rate 21 H 20 H Blood Pressure 107/57 L 114/86 H Blood Pressure Mean 73 95 Pulse Ox 92 94 Oxygen Delivery Method Room Air Room Air Positive well nourished, well developed and cachectic; Negative for contractures or unkempt General Appearance ED: well developed, cachectic and NAD; Negative for unkempt, contractures or pallor Nutritional Appearance: cachectic HEENT Reports moist mucous membranes normocephalic and atraumatic; Negative for trauma or tenderness Eyes PERRL and EOMs intact bilaterally General Eye ED: Negative for pale conjunctiva or scleral icterus Neck no lymphadenopathy, supple and no JVD General: Negative for tenderness Chest Wall inspection of chest normal and palpation of chest normal Chest: Negative for tenderness Resp normal respiratory effort and clear to auscultation bilaterally Effort and Inspection: Negative for respiratory distress Auscultation: Negative for rales, rhonchi, wheezes or diminished lung sounds Cardio regular rate, regular rhythm, S1 normal heart sound, S2 normal heart sound and no murmurs Rate: Negative for bradycardia or tachycardic Rhythm: Negative for abnormal rhythm Peripheral Pulses: pulses 2+ throughout GI normal to inspection, nondistended, normoactive bowel sounds, soft to palpation, non-tender and no masses Back/Spine no CVA tenderness and no thoracic nor lumbar tenderness General Back: Negative for CVA tenderness Cervical Spine: Negative for cervical spine tenderness Extremity normal to inspection General Extremety ED: Negative for edema, pulses abnormal or tenderness General Extremity: Negative for edema or pulses abnormal Neuro oriented x3 and CN's II-XII intact bilaterally Sensorium / Orientation: awake, alert, oriented to person, oriented to place and oriented to time; Negative for confused or lethargic Motor Exam: strength 5/5 throughout; Negative for general weakness Psych mental status grossly normal Appearance: Negative for unkempt Attitude: No agitated Mood & Affect: Negative for depressed, anxious or tearful Skin no rashes or lesions noted and no wounds General Skin Exam: Negative for jaundice or pallor Rashes: No rashes noted Trauma: Negative for abrasion, laceration or puncture Heart Score History: Moderately Suspicious ECG: Normal Age: >/= 65 years Risk Factors: >/= 3 Risk Factors or History of CAD Troponin: </= Normal Limit Score: 5 MDM MDM MDM Narrative Medical decision making narrative: 53-year-old female with nonexertional midsternal chest pain today. Reportedly had an VT 2 to 3 weeks ago and was hospitalized. Has not had a heart catheterization since 2020 at which time she had disease but no stents. She is also had DVT and PEs before but is currently on Eliquis. She undergo a cardiac workup by me treated with nitro to see if it makes any difference currently in her pain. Repeat exam patient is doing well at 6:46 PM. 2-hour troponin was again 9. She is comfortable being discharged home with outpatient follow-up. I did review the patient's old records she told me that she had an VT 2 to 3 weeks ago I reviewed all of her troponins they were all normal. That may be inaccurate. History & Record Review Discussion w/independent historian: Patient Additional record(s) reviewed:: Prior inpatient record, Prior outpatient record and Prior ED visit Lab Data Attestation: I reviewed the patient's lab results. Lab results narrative: CBC white count 8.6. H&H 10.5 and 35.1. Platelets 418. Chemistries show normal BUN and creatinine. Gap of 5. Initial troponin is 9. Glucose 121. 2-hour troponin is 9 also. Labs: Laboratory Results - last 24 hr 11/06/23 11/06/23 15:30 17:55 WBC 8.6 RBC 3.97 L Hgb 10.5 L Hct 35.1 L MCV 88.4 MCH 26.4 L MCHC 29.9 L RDW Std Deviation 54.9 H RDW Coeff of Alfredo 17.1 H Plt Count 418 MPV 9.4 Immature Gran % (Auto) 0.600 Neut % (Auto) 63.7 Lymph % (Auto) 20.3 [place]re % (Auto) 9.8 Eos % (Auto) 4.8 Baso % (Auto) 0.8 Absolute Neuts (auto) 5.5 Absolute Lymphs (auto) 1.75 Nucleated RBC % 0 Sodium 137 Potassium 4.4 Chloride 105 Carbon Dioxide 27.0 Anion Gap 5 BUN 14 Creatinine 1.25 H Estim Creat Clear Calc 71.63 Est GFR (MDRD) Af Amer 58 L Est GFR (MDRD) Non-Af 48 L BUN/Creatinine Ratio 11.2 Glucose 121 H Calcium 10.0 Troponin I High Sens 9 9 Radiography Chest X-Ray - ED: 1 View, Lungs, Mediastinum, Bony Structures, No Acute Disease, Chronic Changes and Cardiomegaly Diagnostic Testing: Clinical Impression(s) from Imaging Studies Chest X-Ray 11/06/23 15:50 IMPRESSION: Enlarged heart. Electronically Signed: Maury Srivastava MD at 16:06 EDT , Chest x-ray, portable, single view interpreted by myself and the radiologist shows cardiomegaly. No other acute process. Normal lung lee. Compared to prior chest x-rays she has had cardiomegaly before. Rhythm Strip Rhythm Strip: Sinus Tach Rate: 103 Ectopy: None EKG Initial EKG: Attestation: I personally reviewed and interpreted this EKG as follows: Interpretation: No Acute Injury Pattern and Sinus Tachycardia Comments: Sinus tachycardia rate of 103. No acute signs of VT, ischemia or dysrhythmia. Discharge Plan Triage Chief Complaint: Chest Pain ED Provider: Pipo Merritt Dx/Rx/DC Orders Clinical Impression: Chest pain, History of diabetes mellitus, Chronic anticoagulation Instructions: ED Chest Pain, Uncertain Cause Prescriptions: No Action budesonide-formoterol [Symbicort] 160-4.5 mcg/actuation HFA aerosol inhaler 2 puff INHALATION BID Trelegy Ellipta 100-62.5-25 mcg blister with device 1 inh INHALATION DAILY lorazepam 1 mg tablet 1 mg PO TID PRN (Reason: ANXIETY ) progesterone micronized 200 mg capsule 400 mg PO QHS cyclobenzaprine 5 mg tablet 5 mg PO Q8H atorvastatin 80 mg Tablet 80 mg PO DAILY metoclopramide HCl [Reglan] 10 mg tablet 10 mg PO Q6H PRN (Reason: NAUSEA AND VOMTING ) Qty: 20 0RF albuterol sulfate 90 mcg/actuation HFA aerosol inhaler 2 puff inhalation Q4H PRN (Reason: SHORTNESS OF BREATH/WHEEZING ) Emgality Syringe 120 mg/mL syringe 120 mg subcut Q30D trazodone 50 mg tablet 50 - 100 mg PO QHS atenolol 25 mg tablet 25 mg PO DAILY PRN (Reason: ANXIETY ) diclofenac sodium 3 % gel 1 ea topical BID PRN PRN (Reason: skin irritation) gabapentin 300 mg capsule 300 mg PO TID Emgality Pen 120 mg/mL pen injector 120 mg subcut QMONTH levothyroxine 100 mcg tablet 200 mcg PO DAILY naratriptan 2.5 mg tablet 2.5 mg PO BID PRN (Reason: migraines) Rx Instructions: can repeat dose, two hours after first dose taken. do not exceed more than two doses in 24 hours. calcium carbonate 500 mg calcium (1,250 mg) tablet,chewable 1,000 mg PO Q6H PRN PRN (Reason: heartburn) citalopram 40 mg tablet 40 mg PO DAILY furosemide 40 mg tablet 40 mg PO DAILY Qty: 30 11RF potassium chloride 10 mEq capsule, extended release 10 meq PO DAILY Qty: 30 11RF isosorbide mononitrate 30 mg tablet extended release 24 hr 30 mg PO DAILY Qty: 30 11RF valsartan 320 mg tablet 160 mg PO BID Qty: 30 11RF Primary Care Provider: Nasreen Sutton Referrals: Nasreen Sutton MD [Primary Care Provider] - As soon as possible Activity Restrictions/Additional Instructions: Your labs look good. Follow-up with your primary care physician. Print Language: Citizen Of [place] Disposition Disposition: Home, Self Care
--- NOTE | 2023-11-06 15:50 | RAD_ITS ---
EXAM: XR CHEST, 1 VIEW CLINICAL INDICATION: CHEST PAIN TECHNIQUE: Frontal view of the chest. COMPARISON: 8.2.24 FINDINGS: LUNGS AND PLEURAL SPACES: Unremarkable. No consolidation or edema. No pneumothorax. No effusion. HEART: Enlarged heart. MEDIASTINUM: Central airways and mediastinal contour are unremarkable. BONES/JOINTS: Unremarkable. No acute fracture. SOFT TISSUES: Unremarkable. RAD/Chest 1 View (Portable) IMPRESSION: Enlarged heart. Electronically Signed: Maury Srivastava MD at 16:06 EDT ,
[2023-11-06] MEDS: Nitroglycerin SL (ED/IMG/CATH) 0.4 MG TABLET SL ×3 (15:55→16:05)
[2023-11-06 16:00] LABS: Anion Gap 5 (5-15); BUN 14 mg/dL (7-18); BUN/Creat Ratio 11.2 RATIO (10-20); Chloride 105 mmol/L (98-107); Creatinine, Serum 1.25 mg/dL (0.55-1.02); EST Glomerular Filtration Rate 48 mL/min (>60); Est Glom Filt Rate - Afr Amer 58 mL/min (>60); Estimated Creatinine Clearance 71.63 ml/min; Glucose 121 mg/dL (74-106); Potassium 4.4 mmol/L (3.5-5.1); Sodium Level 137 mmol/L (136-145); Troponin-I HS (w/2H Reflex) 9 pg/mL (3.0-54.0)
[2023-11-06] MEDS: Mag /Aluminum/Simeth WCH UDC 30 ML ORAL.SUSP PO (16:16)
[2023-11-06] MEDS: Lidocaine 2% Viscous15 ML UDC 15 ML PO (16:16)
[2023-11-06 17:37] LABS: Reflex Troponin-HS? (from REC) Y
[2023-11-06 18:32] LABS: Troponin-I HS 9 pg/mL (3.0-54.0)
== END 2023-11-06 18:54 | disposition home or self-care (01) ==
PROVIDERS: Emergency Provider Emergency Medicine; PCP Family Medicine; Visit Provider Emergency Medicine
DX: R07.9 Chest pain, unspecified (principal); J44.9 Chronic obstructive pulmonary disease, unspecified; E11.22 Type 2 diabetes mellitus with diabetic chronic kidney disease; I12.9 Hypertensive chronic kidney disease with stage 1 through stage 4 chronic kidney disease, or unspecified chronic kidney disease; N18.9 Chronic kidney disease, unspecified; E78.00 Pure hypercholesterolemia, unspecified; Z79.01 Long term (current) use of anticoagulants; Z79.51 Long term (current) use of inhaled steroids; Z79.899 Other long term (current) drug therapy; Z86.711 Personal history of pulmonary embolism; Z86.718 Personal history of other venous thrombosis and embolism
CPT/HCPCS: 36415; 71045; 80048; 84484; 85025; 93005; 99284; A4216

== ENCOUNTER 2023-11-10 19:13 | Emergency (ER) | payer MEDICARE, MEDICAID, SELFPAY ==
[2023-11-10 19:13] VITALS: BP 136/79; PULSE 99; RESP 18; TEMP 35.9; O2SAT 100; BMI 51.5
--- NOTE | 2023-11-10 21:20 | RAD_ITS ---
INDICATION: INJURY/PAIN EXAMINATION/TECHNIQUE: X-RAY - LEFT XR Foot Min 3 Views 3 VIEWS COMPARISON: FINDINGS: SOFT TISSUES: There is soft tissue swelling diffusely with no subcutaneous gas. No radiopaque foreign body. BONES/JOINTS: No acute fracture or subluxation.. Normal alignment. Preservation of the joint space.. No sclerotic or destructive changes observed. RAD/Foot min 3 Views IMPRESSION: Diffuse soft tissue swelling. Electronically Signed: Roscoe Angelo DO at 22:52 EDT ,
--- NOTE | 2023-11-10 21:20 | RAD_ITS ---
INDICATION: injury/pain EXAMINATION/TECHNIQUE: X-RAY - LEFT XR Ankle Min 3 Views 3 VIEWS COMPARISON: FINDINGS: SOFT TISSUES: Diffuse soft tissue swelling without subcutaneous gas. No radiopaque foreign body. Vascular calcifications. BONES/JOINTS: No acute fracture or subluxation.. Normal alignment. Preservation of the joint space.. No sclerotic or destructive changes observed. RAD/Ankle min 3 Views IMPRESSION: Diffuse soft tissue swelling. Electronically Signed: Roscoe Angelo DO at 22:45 EDT ,
--- NOTE | 2023-11-10 21:32 | EDS_ITS ---
HPI History of Present Illness Chief Complaint: Lower Extremity Injury Detail of Chief Complaint: Patient presents with left foot and ankle pain and swelling [facility] Informant: patient Occured/Mechanism Comment: Initial injury February this year. Reinjured fall past week Onset/Context/Timing Onset: Days Context: Sudden Onset Timing: Continuous Quality of Pain: Dull and Aching Location: Left foot and ankle as well as anterior left leg Current Severity: Mild Maximum Severity: Moderate Worsened by: Weightbearing and palpation Relieved by: Nothing Associated Symptoms Associated Symptoms: Negative for Parasthesia or Weakness Narrative Narrative: Patient is a 53-year-old woman who had a mechanical fall less than a week ago. She presents because of pain and swelling of her left ankle and foot. She has increased pain with weightbearing. She injured the ankle February this year. That was the initial injury. This is a recurrent injury due to fall 1 week ago. She has no other complaints. Prior similar symptoms: Yes Recent Illness/Hospitalization: No PFSH PFSH Medical History MARYANA (acute kidney injury) Walker as ambulation aid Ambulates with cane Low iron History of renal disease High cholesterol DVT (deep venous thrombosis) PONV (postoperative nausea and vomiting) Stroke/cerebrovascular accident Sleep apnea Fall Cardiology follow-up encounter Scalp hematoma Pulmonary embolism Post-menopausal Thyroid disease Injury of head and neck Dietary restriction Difficulty swallowing BiPAP (biphasic positive airway pressure) dependence COPD (chronic obstructive pulmonary disease) Shortness of breath on exertion Leg cramps History of pain when walking History of edema History of echocardiogram History of stress test Syncope Abnormal glucose Noncompliance DAVY treated with BiPAP UTI (urinary tract infection) Vitamin D deficiency Restless leg syndrome Vitamin B12 deficiency Iron deficiency anemia History of chronic back pain Wears glasses Arthritis Non-smoker Hydronephrosis Depression Anemia Migraine headache Chronic kidney disease Diabetes mellitus Gout Celiac disease Hyperlipidemia GERD (gastroesophageal reflux disease) Dyspnea on exertion Chest pain Hypersomnia Cardiac murmur Microcytic anemia Hypertension Morbid obesity with BMI of 40.0-44.9, adult Asthma Hypothyroidism Anxiety Home Medications ?Medication ?Instructions ?Recorded ?Last Taken ?Type citalopram 40 mg tablet 40 mg PO DAILY DEPRESSION/ANXIETY 07/27/19 09/30/23 History budesonide-formoterol HFA 160 2 puff inhalation BID COPD 04/02/20 09/30/23 History mcg-4.5 mcg/actuation aerosol inhaler (Symbicort) lorazepam 1 mg tablet 1 mg PO TID PRN ANXIETY 05/04/22 02/08/23 History progesterone micronized 200 mg 400 mg PO QHS HORMONES 10/11/22 09/30/23 History capsule metoclopramide HCl 10 mg tablet 10 mg PO Q6H PRN NAUSEA AND 01/07/23 Unknown Rx (Reglan) VOMTING #20 tabs atorvastatin 80 mg tablet 80 mg PO DAILY CHOLESTEROL 02/10/23 09/30/23 History cyclobenzaprine 5 mg tablet 5 mg PO Q8H MUSCLE SPASMS 02/10/23 09/30/23 History fluticasone fur. 100 mcg-umeclid 1 inh inhalation DAILY COPD 06/20/23 09/30/23 History 62.5 mcg-vilant 25 mcg inhalat.powder (Trelegy Ellipta) albuterol sulfate 90 mcg/actuation 2 puff inhalation Q4H PRN 07/29/23 08/22/23 History aerosol inhaler SHORTNESS OF BREATH/WHEEZING galcanezumab-gnlm 120 mg/mL 120 mg subcut Q30D migraines 07/29/23 Unknown History subcutaneous syringe (Emgality) trazodone 50 mg tablet 50 - 100 mg PO QHS SLEEP 07/29/23 09/30/23 History atenolol 25 mg tablet 25 mg PO DAILY PRN ANXIETY 08/23/23 08/22/23 History diclofenac sodium 3 % topical gel 1 ea topical BID PRN PRN skin 09/30/23 Unknown History irritation gabapentin 300 mg capsule 300 mg PO TID pain 09/30/23 09/30/23 History galcanezumab-gnlm 120 mg/mL 120 mg subcut QMONTH migraine 09/30/23 Unknown His tory subcutaneous pen injector (Emgality Pen) calcium carbonate 1,000 mg PO Q6H PRN PRN heartburn 10/01/23 Unknown History levothyroxine 100 mcg tablet 200 mcg PO DAILY thyroid 10/01/23 09/30/23 History naratriptan 2.5 mg tablet 2.5 mg PO BID PRN migraines 10/01/23 Unknown History furosemide 40 mg tablet 40 mg PO DAILY #30 tabs 10/18/23 Unknown Rx isosorbide mononitrate 30 mg 30 mg PO DAILY HEART #30 tabs 10/18/23 Unknown Rx tablet,extended release 24 hr potassium chloride 10 mEq 10 meq PO DAILY SUPPLEMENT #30 10/18/23 Unknown Rx capsule,extended release caps valsartan 320 mg tablet 160 mg (1/2 x 320 mg) PO BID BLOOD 10/18/23 Unknown Rx PRESSURE #30 tabs Allergy/AdvReac Type Severity Reaction Status Date / Time hydrochlorothiazide AdvReac Intermediate Contributes Verified 11/10/23 19:15 to gout naproxen (From Naprosyn) AdvReac Intermediate Nausea Verified 11/10/23 19:15 aspirin AdvReac Nausea Verified 11/10/23 19:15 Family History Father , Age 72 Hypertension Mother CAD (coronary artery disease) Myocardial infarction, Onset Age: 55 Hypertension Sister CAD (coronary artery disease) Brother Cancer Surgical History History of cardiac catheterization History of History of carpal tunnel surgery of right wrist History of carpal tunnel surgery of left wrist Hx of cystoscopy History of left heart catheterization (11/11/20) history of uterine ablation Social History household members: none housing: apartment Smoking Status: Never smoker alcohol intake: never substance use type: does not use caffeine: No ROS ROS ED Musculoskeletal Musculoskeletal: Reports other Details: Pain and swelling of foot and ankle on the left. Integumentary Reports other Details: Bruising anterior mid left leg Neurologic Neurologic: Denies paresthesias or weakness Hematologic/Lymphatic Hematologic/Lymphatic: Denies easy bleeding or easy bruising EXAM Physical Exam Const Vital Signs: 11/10/23 19:13 Temperature 96.6 F L Temperature Source Temporal Pulse Rate 99 Respiratory Rate 18 Blood Pressure 136/79 H Blood Pressure Mean 98 Pulse Ox 100 Oxygen Delivery Method Room Air Positive well nourished, well developed, obese and unkempt General Appearance ED: unkempt, well developed and NAD Nutritional Appearance: obese HEENT Reports moist mucous membranes normocephalic and atraumatic Eyes PERRL Eyes Narrative: Extract muscles are intact. Neck full ROM and supple Resp normal respiratory effort Cardio regular rate and regular rhythm Extremity Negative for normal to inspection Extremity Narrative: There is swelling of the left foot and ankle. There is pain ovation of the lateral medial malleolus as well as the base of the fifth metatarsal. Unable to palpate DP pulse because of swelling. There is bruising and soft tissue swelling over the mid anterior left leg. There is no joint line tenderness of the knee. There is no pain ovation of the fibular head. Capillary refill is normal. Neuro oriented x3, CN's II-XII intact bilaterally and moves all extremities Sensorium / Orientation: alert Psych mental status grossly normal Appearance: unkempt Skin no wounds Lesions: no lesions Rashes: no rashes MDM MDM MDM Narrative Medical decision making narrative: X-ray of the foot and ankle were obtained to evaluate for contusion versus fracture and sprain versus fracture respectively. Radiography Chest X-Ray - ED: Read by ED Physician (Three-view x-ray of the left ankle and three-view x-ray of the left foot were both independently reviewed interpreted by me as negative. There is no fracture, subluxation dislocation. There is no widening of the mortise.) Treatment and Re-Evaluation Narrative: Patient was informed of results. Since she is diabetic and has renal disease recommend Tylenol for pain and ice. Discharge Plan Triage Chief Complaint: Lower Extremity Injury ED Provider: Jcarlos Anthony Dx/Rx/DC Orders Clinical Impression: Sprain of anterior talofibular ligament of left ankle, Diabetes mellitus, Chronic kidney disease, Essential hypertension, Contusion of left foot, initial encounter, Contusion of left lower leg, initial encounter Instructions: ED Contusion, Lower Extremity, ED Ankle Sprain (Adult) Prescriptions: No Action budesonide-formoterol [Symbicort] 160-4.5 mcg/actuation HFA aerosol inhaler 2 puff INHALATION BID Trelegy Ellipta 100-62.5-25 mcg blister with device 1 inh INHALATION DAILY lorazepam 1 mg tablet 1 mg PO TID PRN (Reason: ANXIETY ) progesterone micronized 200 mg capsule 400 mg PO QHS cyclobenzaprine 5 mg tablet 5 mg PO Q8H atorvastatin 80 mg Tablet 80 mg PO DAILY metoclopramide HCl [Reglan] 10 mg tablet 10 mg PO Q6H PRN (Reason: NAUSEA AND VOMTING ) Qty: 20 0RF albuterol sulfate 90 mcg/actuation HFA aerosol inhaler 2 puff inhalation Q4H PRN (Reason: SHORTNESS OF BREATH/WHEEZING ) Emgality Syringe 120 mg/mL syringe 120 mg subcut Q30D trazodone 50 mg tablet 50 - 100 mg PO QHS atenolol 25 mg tablet 25 mg PO DAILY PRN (Reason: ANXIETY ) diclofenac sodium 3 % gel 1 ea topical BID PRN PRN (Reason: skin irritation) gabapentin 300 mg capsule 300 mg PO TID Emgality Pen 120 mg/mL pen injector 120 mg subcut QMONTH levothyroxine 100 mcg tablet 200 mcg PO DAILY naratriptan 2.5 mg tablet 2.5 mg PO BID PRN (Reason: migraines) Rx Instructions: can repeat dose, two hours after first dose taken. do not exceed more than two doses in 24 hours. calcium carbonate 500 mg calcium (1,250 mg) tablet,chewable 1,000 mg PO Q6H PRN PRN (Reason: heartburn) citalopram 40 mg tablet 40 mg PO DAILY furosemide 40 mg tablet 40 mg PO DAILY Qty: 30 11RF potassium chloride 10 mEq capsule, extended release 10 meq PO DAILY Qty: 30 11RF isosorbide mononitrate 30 mg tablet extended release 24 hr 30 mg PO DAILY Qty: 30 11RF valsartan 320 mg tablet 160 mg PO BID Qty: 30 11RF Primary Care Provider: Nasreen Sutton Referrals: Nasreen Sutton MD [Primary Care Provider] - 1 Week if not improving Activity Restrictions/Additional Instructions: 1. Apply ice 6-8 times a day 2. Draw the alphabet with your foot 3. Take Tylenol for pain Print Language: Latvian Disposition Disposition: Home, Self Care
== END 2023-11-10 22:26 | disposition home or self-care (01) ==
PROVIDERS: Emergency Provider Emergency Medicine; PCP Family Medicine; Referring Provider Emergency Medicine; Visit Provider Emergency Medicine
DX: S93.492A Sprain of other ligament of left ankle, initial encounter (principal); J44.9 Chronic obstructive pulmonary disease, unspecified; E11.22 Type 2 diabetes mellitus with diabetic chronic kidney disease; I12.9 Hypertensive chronic kidney disease with stage 1 through stage 4 chronic kidney disease, or unspecified chronic kidney disease; S90.32XA Contusion of left foot, initial encounter; S80.12XA Contusion of left lower leg, initial encounter; W18.30XA Fall on same level, unspecified, initial encounter; N18.9 Chronic kidney disease, unspecified; E78.00 Pure hypercholesterolemia, unspecified; Z79.51 Long term (current) use of inhaled steroids; Z79.899 Other long term (current) drug therapy
CPT/HCPCS: 73610; 73630; 99282

== ENCOUNTER 2023-11-21 06:39 | Emergency (ER) | payer MEDICARE, MEDICAID, SELFPAY ==
[2023-11-21 06:39] VITALS: BP 153/88; PULSE 98; RESP 24; TEMP 37.2; O2SAT 96; BMI 51.5
--- NOTE | 2023-11-21 07:31 | EKG12_ITS ---
Test Reason : CP Blood Pressure : / mmHG Vent. Rate : 092 BPM Atrial Rate : 092 BPM P-R Int : 156 ms QRS Dur : 092 ms QT Int : 378 ms P-R-T Axes : 051 010 -02 degrees QTc Int : 467 ms Normal sinus rhythm Normal ECG Confirmed by Wes Medeiros ([id number]), photographic editor SONJA ZABALA ([id number]) on 11/22/2023 10:08:21 AM Referred By: Confirmed By:Wes Medeiros
--- NOTE | 2023-11-21 07:36 | ED.VIS.CHEST ---
HPI History of Present Illness Chief Complaint: Chest Pain Informant: patient Narrative Narrative: Patient is a 53-year-old female with history of diabetes mellitus, DAVY on BiPAP, DVT/PE on Eliquis, hypertension, coronary artery disease, hyperlipidemia diastolic dysfunction and COPD presenting with chest pain. Patient states she feels like someone is stepping on her chest. She states it started around 11 PM. She notes that she was sitting on the edge of her bed. When this happened she felt lightheaded and then vomited. She states the discomfort has been present since. She also notes she started to feel that her right arm was normal. She feels a little short of breath and has had a cough recently. She states has been nonproductive. States for the past month or so she has had some increased one of her left leg intermittently. She did previously have a left ankle injury and gets more swelling on her left side. Denies any nasal congestion or sore throat. Denies any fever or chills. States she has been little constipated but denies any black or blood in her stool. States that she has been compliant with her Eliquis has not missed any doses. She notes for the past month she has been feeling little off balance and when she gets this way she does feel like she has some blurry vision. This happened today when she had her initial episode of chest discomfort. Patient is also complaining of a headache. Denies any recent falls or injuries but states she has fallen in the past and hit her head. No other complaints or concerns at this time. Of note patient was seen in our ER earlier this month on 11/06 for similar presentation of chest pain. At that time her workup was negative she was discharged home. This is the patient's 28th ER visit at our hospital this year. [facility] Medical History MARYANA (acute kidney injury) Walker as ambulation aid Ambulates with cane Low iron History of renal disease High cholesterol DVT (deep venous thrombosis) PONV (postoperative nausea and vomiting) Stroke/cerebrovascular accident Sleep apnea Fall Cardiology follow-up encounter Scalp hematoma Pulmonary embolism Post-menopausal Thyroid disease Injury of head and neck Dietary restriction Difficulty swallowing BiPAP (biphasic positive airway pressure) dependence COPD (chronic obstructive pulmonary disease) Shortness of breath on exertion Leg cramps History of pain when walking History of edema History of echocardiogram History of stress test Syncope Abnormal glucose Noncompliance DAVY treated with BiPAP UTI (urinary tract infection) Vitamin D deficiency Restless leg syndrome Vitamin B12 deficiency Iron deficiency anemia History of chronic back pain Wears glasses Arthritis Non-smoker Hydronephrosis Depression Anemia Migraine headache Chronic kidney disease Diabetes mellitus Gout Celiac disease Hyperlipidemia GERD (gastroesophageal reflux disease) Dyspnea on exertion Chest pain Hypersomnia Cardiac murmur Microcytic anemia Hypertension Morbid obesity with BMI of 40.0-44.9, adult Asthma Hypothyroidism Anxiety Home Medications ?Medication ?Instructions ?Recorded ?Last Taken ?Type citalopram 40 mg tablet 40 mg PO DAILY DEPRESSION/ANXIETY 07/27/19 09/30/23 History budesonide-formoterol HFA 160 2 puff inhalation BID COPD 04/02/20 09/30/23 History mcg-4.5 mcg/actuation aerosol inhaler (Symbicort) lorazepam 1 mg tablet 1 mg PO TID PRN ANXIETY 05/04/22 02/08/23 History progesterone micronized 200 mg 400 mg PO QHS HORMONES 10/11/22 09/30/23 History capsule metoclopramide HCl 10 mg tablet 10 mg PO Q6H PRN NAUSEA AND 01/07/23 Unknown Rx (Reglan) VOMTING #20 tabs atorvastatin 80 mg tablet 80 mg PO DAILY CHOLESTEROL 02/10/23 09/30/23 History cyclobenzaprine 5 mg tablet 5 mg PO Q8H MUSCLE SPASMS 02/10/23 09/30/23 History fluticasone fur. 100 mcg-umeclid 1 inh inhalation DAILY COPD 06/20/23 09/30/23 History 62.5 mcg-vilant 25 mcg inhalat.powder (Trelegy Ellipta) albuterol sulfate 90 mcg/actuation 2 puff inhalation Q4H PRN 07/29/23 08/22/23 History aerosol inhaler SHORTNESS OF BREATH/WHEEZING galcanezumab-gnlm 120 mg/mL 120 mg subcut Q30D migraines 07/29/23 Unknown History subcutaneous syringe (Emgality) trazodone 50 mg tablet 50 - 100 mg PO QHS SLEEP 07/29/23 09/30/23 History atenolol 25 mg tablet 25 mg PO DAILY PRN ANXIETY 08/23/23 08/22/23 History diclofenac sodium 3 % topical gel 1 ea topical BID PRN PRN skin 09/30/23 Unknown History irritation gabapentin 300 mg capsule 300 mg PO TID pain 09/30/23 09/30/23 History galcanezumab-gnlm 120 mg/mL 120 mg subcut QMONTH migraine 09/30/23 Unknown History subcutaneous pen injector (Emgality Pen) calcium carbonate 1,000 mg PO Q6H PRN PRN heartburn 10/01/23 Unknown History levothyroxine 100 mcg tablet 200 mcg PO DAILY thyroid 10/01/23 09/30/23 History naratriptan 2.5 mg tablet 2.5 mg PO BID PRN migraines 10/01/23 Unknown History furosemide 40 mg tablet 40 mg PO DAILY #30 tabs 10/18/23 Unknown Rx isosorbide mononitrate 30 mg 30 mg PO DAILY HEART #30 tabs 10/18/23 Unknown Rx tablet,extended release 24 hr potassium chloride 10 mEq 10 meq PO DAILY SUPPLEMENT #30 10/18/23 Unknown Rx capsule,extended release caps valsartan 320 mg tablet 160 mg (1/2 x 320 mg) PO BID BLOOD 10/18/23 Unknown Rx PRESSURE #30 tabs Allergy/AdvReac Type Severity Reaction Status Date / Time hydrochlorothiazide AdvReac Intermediate Contributes Verified 11/21/23 06:44 to gout naproxen (From Naprosyn) AdvReac Intermediate Nausea Verified 11/21/23 06:44 aspirin AdvReac Nausea Verified 11/21/23 06:44 Family History Father , Age 72 Hypertension Mother CAD (coronary artery disease) Myocardial infarction, Onset Age: 55 Hypertension Sister CAD (coronary artery disease) Brother Cancer Surgical History History of cardiac catheterization History of History of carpal tunnel surgery of right wrist History of carpal tunnel surgery of left wrist Hx of cystoscopy History of left heart catheterization (11/11/20) history of uterine ablation Social History household members: none housing: apartment Smoking Status: Never smoker alcohol intake: never substance use type: does not use caffeine: No ROS ROS ED Constitutional Constitutional ED: Denies chills or fever(s) Eyes Eyes: Reports blurry vision; Denies change in vision ENT ENT ED: Denies rhinorrhea or sore throat Cardiovascular Cardiovascular: Reports as per HPI and chest pain Respiratory/Chest Respiratory/Chest: Reports cough and dyspnea; Denies sputum Gastrointestinal Gastrointestinal: Reports constipation, nausea and vomiting; Denies abdominal pain Musculoskeletal Musculoskeletal: Denies arthralgias or myalgias Integumentary Denies rash Neurologic Neurologic: Reports headache(s) and paresthesias RUE; Denies weakness Hematologic/Lymphatic Hematologic/Lymphatic: Reports easy bleeding and easy bruising EXAM Physical Exam Const Vital Signs: 11/21/23 06:39 11/21/23 06:42 11/21/23 08:39 Temperature 98.9 F Temperature Source Oral Pulse Rate 98 88 Respiratory Rate 24 H 18 Respiratory Effort Normal Non-Labored Blood Pressure 153/88 H 134/76 H Blood Pressure Mean 109 95 Pulse Ox 96 98 Oxygen Delivery Method Room Air Room Air 11/21/23 10:00 11/21/23 12:03 11/21/23 12:19 Temperature 98.9 F Temperature Source Pulse Rate 78 92 92 Respiratory Rate 17 20 H 20 H Respiratory Effort Blood Pressure 139/83 H 140/74 H 140/72 H Blood Pressure Mean 101 96 94 Pulse Ox 98 98 98 Oxygen Delivery Method Room Air Positive well nourished, well developed and obese General Appearance ED: well developed and NAD Nutritional Appearance: obese HEENT Reports moist mucous membranes normocephalic and atraumatic Eyes PERRL and EOMs intact bilaterally General Eye ED: Negative for pale conjunctiva or scleral icterus Neck supple and no JVD Chest Wall inspection of chest normal Chest: tenderness sternum Resp normal respiratory effort and clear to auscultation bilaterally Auscultation: Negative for wheezes or diminished lung sounds Cardio regular rate and regular rhythm GI normal to inspection, nondistended, normoactive bowel sounds, soft to palpation and non-tender Extremity normal to inspection General Extremety ED: Negative for edema General Extremity: Negative for edema Neuro oriented x3 and no sensory deficits noted Sensorium / Orientation: awake and alert Motor Exam: strength 5/5 throughout Psych mental status grossly normal Skin no rashes or lesions noted and no wounds Heart Score History: Slightly/Non-Suspicious ECG: Normal Age: >45 - <65 years Risk Factors: >/= 3 Risk Factors or History of CAD Score: 3 MDM MDM MDM Narrative Medical decision making narrative: Patient is evaluated with chest pain and an episode of vomiting. Patient does have multiple comorbidities. Differential includes chest wall pain, Boerhaave syndrome, pneumothorax, pleural effusion, exacerbation of heart failure, ACS, symptomatic anemia, hyperglycemia/DKA, pancreatitis and GERD/esophagitis. Given that she is anticoagulated on Eliquis, states she has been compliant and is 96% on room air lower suspicion for PE. Will obtain cardiac workup including high-sensitivity troponin, EKG, troponin, CBC, CMP and lipase. Will give the patient nitroglycerin for her pain at this time. Workup is largely normal. Patient has a mild elevation of her lactate which I suspect is from her vomiting. Is given nitro and Zofran for symptoms. Patient's EKG does not show an acute ischemic changes or high since he troponin is 10. She was 9 on her last visit. I do not think this is ACS or need further training especially as the pain has been constant since 2 AM. She has a mild but stable anemia with a hemoglobin of 10.5. Kidney function is at her baseline with creatinine 1.26. Patient is reevaluated. She is not complain of dizziness. It has a longstanding history of dizziness. Will be given a dose of meclizine. Vital signs remain normal. Anticipate she feels better can be discharged home. Patient able to ambulate. Is evaluated by case management. She does report increased depression and thinks that might be related to her multiple ER stays. Medically do not think she requires admission. She denies any active HI or SI and I do not think she requires emergent psychiatric evaluation. Will be discharged home with resources for the counseling center. Lab Data Attestation: I reviewed the patient's lab results. Labs: Laboratory Results - last 24 hr 11/21/23 07:55 WBC 10.8 RBC 3.86 L Hgb 10.5 L Hct 34.4 L MCV 89.1 MCH 27.2 MCHC 30.5 L RDW Std Deviation 56.0 H RDW Coeff of Alfredo 17.2 H Plt Count 332 MPV 10.3 Immature Gran % (Auto) 0.400 Neut % (Auto) 65.6 Lymph % (Auto) 19.3 Burnett % (Auto) 10.8 H Eos % (Auto) 3.2 Baso % (Auto) 0.7 Absolute Neuts (auto) 7.1 Absolute Lymphs (auto) 2.08 Nucleated RBC % 0 Sodium 139 Potassium 3.6 Chloride 107 Carbon Dioxide 26.0 Anion Gap 6 BUN 13 Creatinine 1.26 H Estim Creat Clear Calc 71.10 Est GFR (MDRD) Af Amer 57 L Est GFR (MDRD) Non-Af 47 L BUN/Creatinine Ratio 10.3 Glucose 124 H Calcium 9.7 Total Bilirubin 0.20 AST 24 ALT 23 Alkaline Phosphatase 155 H Troponin I High Sens 10 B-Natriuretic Peptide 22.4 Total Protein 7.4 Albumin 2.9 L Globulin 4.5 H Albumin/Globulin Ratio 0.6 L Lipase 105 H Radiography Chest X-Ray - ED: 1 View, Read by ED Physician, Read by Radiologist, No Acute Disease and Cardiomegaly Diagnostic Testing: Clinical Impression(s) from Imaging Studies Chest X-Ray 11/21/23 08:05 IMPRESSION: No active disease. Cardiomegaly. Electronically Signed: Casey Pichardo MD at 8:37 EDT Reading Location ID and State: [id number] / [place] [employer] , Service support , Brain CT 11/21/23 08:10 IMPRESSION: Normal unenhanced CT scan of the brain. 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 Discharge Plan Triage Chief Complaint: Chest Pain ED Provider: Candy Arreguin Dx/Rx/DC Orders Clinical Impression: Chest pain, Dizziness Instructions: ED Chest Pain, Noncardiac, ED Dizziness, Uncertain Cause Prescriptions: No Action budesonide-formoterol [Symbicort] 160-4.5 mcg/actuation HFA aerosol inhaler 2 puff INHALATION BID Trelegy Ellipta 100-62.5-25 mcg blister with device 1 inh INHALATION DAILY lorazepam 1 mg tablet 1 mg PO TID PRN (Reason: ANXIETY ) progesterone micronized 200 mg capsule 400 mg PO QHS cyclobenzaprine 5 mg tablet 5 mg PO Q8H atorvastatin 80 mg Tablet 80 mg PO DAILY metoclopramide HCl [Reglan] 10 mg tablet 10 mg PO Q6H PRN (Reason: NAUSEA AND VOMTING ) Qty: 20 0RF albuterol sulfate 90 mcg/actuation HFA aerosol inhaler 2 puff inhalation Q4H PRN (Reason: SHORTNESS OF BREATH/WHEEZING ) Emgality Syringe 120 mg/mL syringe 120 mg subcut Q30D trazodone 50 mg tablet 50 - 100 mg PO QHS atenolol 25 mg tablet 25 mg PO DAILY PRN (Reason: ANXIETY ) diclofenac sodium 3 % gel 1 ea topical BID PRN PRN (Reason: skin irritation) gabapentin 300 mg capsule 300 mg PO TID Emgality Pen 120 mg/mL pen injector 120 mg subcut QMONTH levothyroxine 100 mcg tablet 200 mcg PO DAILY naratriptan 2.5 mg tablet 2.5 mg PO BID PRN (Reason: migraines) Rx Instructions: can repeat dose, two hours after first dose taken. do not exceed more than two doses in 24 hours. calcium carbonate 500 mg calcium (1,250 mg) tablet,chewable 1,000 mg PO Q6H PRN PRN (Reason: heartburn) citalopram 40 mg tablet 40 mg PO DAILY furosemide 40 mg tablet 40 mg PO DAILY Qty: 30 11RF potassium chloride 10 mEq capsule, extended release 10 meq PO DAILY Qty: 30 11RF isosorbide mononitrate 30 mg tablet extended release 24 hr 30 mg PO DAILY Qty: 30 11RF valsartan 320 mg tablet 160 mg PO BID Qty: 30 11RF Primary Care Provider: Nasreen Sutton Referrals: Counseling,Center [Group of Physicians] - As soon as possible Nasreen Sutton MD [Primary Care Provider] - Activity Restrictions/Additional Instructions: Your workup was negative for any acute process to explain your chest pain or your dizziness. Your CT of your brain was normal. I do not have signs of any acute heart failure, new fluid on the lungs or other acute abnormalities. At this time you can be discharged home to follow-up with your primary care doctor. I do recommend that you follow-up with the counseling center as well as discussed with the case management. Print Language: Albanian Disposition Disposition: Home, Self Care
[2023-11-21 08:03] LABS: Absolute Lymphocyte Count 2.08 X10^3/uL (0.83-4.51); Absolute Neutrophil Count 7.1 X10^3/uL (2.0-7.7); Basophil# 0.08 X10^3/uL; Basophil% 0.7 % (0-1); Eosinophil# 0.35 X10^3/uL; Eosinophils% 3.2 % (0-5); Hematocrit 34.4 % (37-47); Hemoglobin 10.5 g/dL (12.0-15.0); Lymphocyte # 2.08 X10^3/ul (0.83-4.51); Lymphocyte % 19.3 % (19-41); Mean Corp Hgb Conc 30.5 g/dL (32-36); Mean Corpuscular Hgb 27.2 pg (27.0-32.0); Mean Corpuscular Volume 89.1 fL (81-99); Mean Platelet Vol. 10.3 fl (6.2-12.0); Monocyte# 1.16 X10^3/uL; Monocyte% 10.8 % (0-10); NRBC Flagged by Analyzer 0 % (0-5); Neutrophil # 7.07 X10^3/uL (2.7-7.7); Neutrophil % 65.6 % (47-70); Platelet Count 332 K/mm3 (150-450); RBC Distribution Width CV 17.2 % (11.6-14.6); Red Blood Count 3.86 M/mm3 (4.2-5.4); White Blood Count 10.8 K/mm3 (4.4-11.0)
--- NOTE | 2023-11-21 08:05 | RAD_ITS ---
STUDY: X-RAY CHEST REASON FOR EXAM: Female, 53 years old. chest pain TECHNIQUE: Single AP portable view of the chest. COMPARISON: 11/06/2023 FINDINGS: The lungs are clear and expanded. There is no demonstrated pleural abnormality. There is moderate cardiac enlargement. Normal mediastinum and kumar. Normal visualized pulmonary arteries. Normal visualized aortic arch and descending thoracic aorta. Normal visualized thoracic spine. Normal visualized ribs, clavicles, and shoulders. There is no demonstrated abnormality of the visualized soft tissue structures of the upper abdomen. RAD/Chest 1 View (Portable) IMPRESSION: No active disease. Cardiomegaly. Electronically Signed: Casey Pichardo MD at 8:37 EDT ,
--- NOTE | 2023-11-21 08:10 | CT_ITS ---
STUDY: CT BRAIN WITHOUT CONTRAST REASON FOR EXAM: Female, 53 years old. right arm paresthesias RADIATION DOSAGE (If Supplied By Facility): CTDIvol = ( 44.99 ) mGy, DLP = ( 829.85 ) mGycm TECHNIQUE: Transaxial CT imaging of the brain was performed without administration of intravenous contrast material. Individualized dose optimization techniques were used for this CT. COMPARISON: 05/22/2023 FINDINGS: Normal soft tissue structures. Normal calvarium. Normal size ventricles and extra-axial spaces for the patient''s age. Normal white matter tracts of the cerebral hemispheres. Normal basal ganglia and thalami. Normal brainstem. Normal cerebellum. There is no intracranial hemorrhage. There are no findings of an acute ischemic infarction. Normal visualized paranasal sinuses. CT/Brain/Head without Contrast IMPRESSION: Normal unenhanced CT scan of the brain. Electronically Signed: Casey Pichardo MD at 8:47 EDT ,
[2023-11-21 08:28] LABS: BNP,B-Type NATRIURETIC PEPTIDE 22.4 pg/mL (0-100)
[2023-11-21 08:37] LABS: ALB/GLOB Ratio 0.6 RATIO (0.9-2.4); AST(SGOT) 24 U/L (15-37); Alanine Aminotransfer ALT/SGPT 23 U/L (13-56); Albumin, Serum 2.9 g/dL (3.2-5.0); Alkaline Phosphatase 155 U/L (45-117); Anion Gap 6 (5-15); BUN 13 mg/dL (7-18); BUN/Creat Ratio 10.3 RATIO (10-20); Calcium,Total 9.7 mg/dL (8.5-10.1); Chloride 107 mmol/L (98-107); Creatinine, Serum 1.26 mg/dL (0.55-1.02); EST Glomerular Filtration Rate 47 mL/min (>60); Est Glom Filt Rate - Afr Amer 57 mL/min (>60); Globulin 4.5 g/dL (2.2-4.2); Glucose 124 mg/dL (74-106); Lipase 105 U/L (13-75); Potassium 3.6 mmol/L (3.5-5.1); Protein, Total 7.4 g/dL (6.4-8.2); Sodium Level 139 mmol/L (136-145); Troponin-I HS 10 pg/mL (3.0-54.0)
[2023-11-21 08:39] VITALS: BP 134/76; PULSE 88; RESP 18; O2SAT 98
[2023-11-21] MEDS: Ondansetron 4 MG/2 ML Vial IV (08:51)
[2023-11-21 10:00] VITALS: BP 139/83; PULSE 78; RESP 17; O2SAT 98
[2023-11-21] MEDS: Meclizine HCl 25 MG Tablet PO (10:25)
[2023-11-21 12:03] VITALS: BP 140/74; PULSE 92; RESP 20; O2SAT 98
[2023-11-21 12:19] VITALS: BP 140/72; PULSE 92; RESP 20; TEMP 37.2; O2SAT 98
== END 2023-11-21 12:55 | disposition home or self-care (01) ==
PROVIDERS: Emergency Provider Emergency Medicine; PCP Family Medicine; Visit Provider Emergency Medicine
DX: R07.9 Chest pain, unspecified (principal); J44.9 Chronic obstructive pulmonary disease, unspecified; R42 Dizziness and giddiness; R06.02 Shortness of breath; E78.00 Pure hypercholesterolemia, unspecified; I25.10 Atherosclerotic heart disease of native coronary artery without angina pectoris; I12.9 Hypertensive chronic kidney disease with stage 1 through stage 4 chronic kidney disease, or unspecified chronic kidney disease; N18.9 Chronic kidney disease, unspecified; F32.A Depression, unspecified; Z79.899 Other long term (current) drug therapy; Z86.718 Personal history of other venous thrombosis and embolism
CPT/HCPCS: 70450; 71045; 80053; 83690; 83880; 84484; 85025; 87631; 93005; 96374; 99285; A4216; J2405

== ENCOUNTER 2023-11-27 08:39 | Emergency (ER) | payer MEDICARE, MEDICAID, SELFPAY ==
[2023-11-27 08:39] VITALS: BP 136/95; PULSE 102; RESP 18; TEMP 36.6; O2SAT 96; BMI 54.9
--- NOTE | 2023-11-27 09:08 | EX.ED.DYSGE1 ---
HPI History of Present Illness Chief Complaint: General Illness Informant: patient Narrative Narrative: 53-year-old presenting to the emergency room stating that she is sick. She states that she has had nausea since yesterday. She states that when she woke this morning her left biceps area feels swollen. She states that she has a rash in her right axilla and underneath her breast tissue that was diagnosed with candidiasis and was being treated with nystatin powder and with oral antifungals. She states is not any better. She denies any fever or diarrhea. This is the patient's 30th emergency department visit this year. In addition to utilizing the emergency department frequently she also sees urgent cares and her primary care doctor. Patient has a history of DVT PE but is not currently on anticoagulants [facility] Medical History MARYANA (acute kidney injury) Walker as ambulation aid Ambulates with cane Low iron History of renal disease High cholesterol DVT (deep venous thrombosis) PONV (postoperative nausea and vomiting) Stroke/cerebrovascular accident Sleep apnea Fall [facility]iology follow-up encounter Scalp hematoma Pulmonary embolism Post-menopausal Thyroid disease Injury of head and neck Dietary restriction Difficulty swallowing BiPAP (biphasic positive airway pressure) dependence COPD (chronic obstructive pulmonary disease) Shortness of breath on exertion Leg cramps History of pain when walking History of edema History of echocardiogram History of stress test Syncope Abnormal glucose Noncompliance DAVY treated with BiPAP UTI (urinary tract infection) Vitamin D deficiency Restless leg syndrome Vitamin B12 deficiency Iron deficiency anemia History of chronic back pain Wears glasses Arthritis Non-smoker Hydronephrosis Depression Anemia Migraine headache Chronic kidney disease Diabetes mellitus Gout Celiac disease Hyperlipidemia GERD (gastroesophageal reflux disease) Dyspnea on exertion Chest pain Hypersomnia Cardiac murmur Microcytic anemia Hypertension Morbid obesity with BMI of 40.0-44.9, adult Asthma Hypothyroidism Anxiety Home Medications ?Medication ?Instructions ?Recorded ?Last Taken ?Type citalopram 40 mg tablet 40 mg PO DAILY DEPRESSION/ANXIETY 07/27/19 09/30/23 History budesonide-formoterol HFA 160 2 puff inhalation BID COPD 04/02/20 09/30/23 History mcg-4.5 mcg/actuation aerosol inhaler (Symbicort) lorazepam 1 mg tablet 1 mg PO TID PRN ANXIETY 05/04/22 02/08/23 History progesterone micronized 200 mg 400 mg PO QHS HORMONES 10/11/22 09/30/23 History capsule metoclopramide HCl 10 mg tablet 10 mg PO Q6H PRN NAUSEA AND 01/07/23 Unknown Rx (Reglan) VOMTING #20 tabs atorvastatin 80 mg tablet 80 mg PO DAILY CHOLESTEROL 02/10/23 09/30/23 History cyclobenzaprine 5 mg tablet 5 mg PO Q8H MUSCLE SPASMS 02/10/23 09/30/23 History fluticasone fur. 100 mcg-umeclid 1 inh inhalation DAILY COPD 06/20/23 09/30/23 History 62.5 mcg-vilant 25 mcg inhalat.powder (Trelegy Ellipta) albuterol sulfate 90 mcg/actuation 2 puff inhalation Q4H PRN 07/29/23 08/22/23 History aerosol inhaler SHORTNESS OF BREATH/WHEEZING galcanezumab-gnlm 120 mg/mL 120 mg subcut Q30D migraines 07/29/23 Unknown History subcutaneous syringe (Emgality) trazodone 50 mg tablet 50 - 100 mg PO QHS SLEEP 07/29/23 09/30/23 History atenolol 25 mg tablet 25 mg PO DAILY PRN ANXIETY 08/23/23 08/22/23 History diclofenac sodium 3 % topical gel 1 ea topical BID PRN PRN skin 09/30/23 Unknown History irritation gabapentin 300 mg capsule 300 mg PO TID pain 09/30/23 09/30/23 History galcanezumab-gnlm 120 mg/mL 120 mg subcut QMONTH migraine 09/30/23 Unknown History subcutaneous pen injector (Emgality Pen) calcium carbonate 1,000 mg PO Q6H PRN PRN heartburn 10/01/23 Unknown History levothyroxine 100 mcg tablet 200 mcg PO DAILY thyroid 10/01/23 09/30/23 History naratriptan 2.5 mg tablet 2.5 mg PO BID PRN migraines 10/01/23 Unknown History furosemide 40 mg tablet 40 mg PO DAILY #30 tabs 10/18/23 Unknown Rx isosorbide mononitrate 30 mg 30 mg PO DAILY HEART #30 tabs 10/18/23 Unknown Rx tablet,extended release 24 hr potassium chloride 10 mEq 10 meq PO DAILY SUPPLEMENT #30 10/18/23 Unknown Rx capsule,extended release caps valsartan 320 mg tablet 160 mg (1/2 x 320 mg) PO BID BLOOD 10/18/23 Unknown Rx PRESSURE #30 tabs Allergy/AdvReac Type Severity Reaction Status Date / Time hydrochlorothiazide AdvReac Intermediate Contributes Verified 11/21/23 06:44 to gout naproxen (From Naprosyn) AdvReac Intermediate Nausea Verified 11/21/23 06:44 aspirin AdvReac Nausea Verified 11/21/23 06:44 Family History Father , Age 72 Hypertension Mother CAD (coronary artery disease) Myocardial infarction, Onset Age: 55 Hypertension Sister CAD (coronary artery disease) Brother Cancer Surgical History History of cardiac catheterization History of History of carpal tunnel surgery of right wrist History of carpal tunnel surgery of left wrist Hx of cystoscopy History of left heart catheterization (11/11/20) history of uterine ablation Social History household members: none housing: apartment Smoking Status: Never smoker alcohol intake: never substance use type: does not use caffeine: No ROS ROS ED ROS Narrative Generalized fatigue Constitutional Constitutional ED: Denies chills, fever(s) or weight loss Eyes Eyes: Denies change in vision or diplopia ENT ENT ED: Denies ear pain, rhinorrhea or sore throat Cardiovascular Cardiovascular: Denies chest pain, orthopnea, palpitations or racing heartbeat Respiratory/Chest Respiratory/Chest: Denies cough, dyspnea or orthopnea Gastrointestinal Gastrointestinal: Reports nausea; Denies abdominal pain, diarrhea or vomiting Genitourinary Genitourinary ED: Denies dysuria, hematuria or urinary frequency Musculoskeletal Musculoskeletal: Reports other Details: Right biceps area swelling ; Denies arthralgias or myalgias Integumentary Reports rash; Denies abscess Neurologic Neurologic: Denies headache(s) or weakness Psychiatric Psychiatric: Denies anxiety, depression, suicidal ideation or suicidal thoughts Endocrine Endocrinology: Denies polydipsia, polyphagia or polyuria Allergic/Immunologic Allergic/Immunologic ED: Denies mouth swelling, tongue swelling or urticaria EXAM Physical Exam Const Vital Signs: 11/27/23 08:39 11/27/23 08:45 Temperature 97.8 F Temperature Source Oral Pulse Rate 102 H Respiratory Rate 18 Respiratory Pattern Normal Blood Pressure 136/95 H Blood Pressure Mean 108 Pulse Ox 96 Oxygen Delivery Method Room Air Positive well nourished, well developed and obese General Appearance ED: well developed and NAD Nutritional Appearance: obese HEENT Reports normocephalic, head/scalp atraumatic and moist mucous membranes Eyes PERRL and EOMs intact bilaterally Neck no lymphadenopathy, supple and no JVD Resp normal respiratory effort and clear to auscultation bilaterally Cardio regular rate, regular rhythm and no murmurs GI normal to inspection, nondistended, normoactive bowel sounds and non-tender Palpation: soft Back/Spine no CVA tenderness and normal ROM Extremity Extremity Narrative: The right and left wrist both measure approximately 41.5 cm. The right upper arm is about 3 cm larger than the left. I do not palpate a any palpable cords. There is normal skin color. Normal capillary refill General Extremety ED: Negative for edema General Extremity: Negative for edema Neuro oriented x3 and CN's II-XII intact bilaterally Sensorium / Orientation: alert Motor Exam: strength 5/5 throughout Psych mental status grossly normal Mood & Affect: Negative for depressed or tearful Skin no wounds Skin Narrative: There is a erythematous moist rash in the right axilla and right breast skin folds consistent with yeast dermatitis MDM MDM MDM Narrative Medical decision making narrative: Differential diagnoses of the arm swelling includes but not limited to lymphedema DVT muscular injury I can set the patient up for an outpatient duplex tomorrow. I recommend that for her rash she continue the topical nystatin and would recommend that she use a washcloth in the skin folds to keep the tissue dry as the tissue appears very wet with visible sweat. I think this would help the skin condition. As far as the nausea could be medication related as she is on an oral antifungal. Could be the start of a viral illness and unfortunately is rather nonspecific complaint. History & Record Review Discussion w/independent historian: Patient Discharge Plan Triage Chief Complaint: General Illness ED Provider: Nicolás Nieves Dx/Rx/DC Orders Clinical Impression: Yeast dermatitis, Swelling of right upper extremity, Nausea Instructions: ED Tana Skin Infection (Adult) Prescriptions: No Action budesonide-formoterol [Symbicort] 160-4.5 mcg/actuation HFA aerosol inhaler 2 puff INHALATION BID Trelegy Ellipta 100-62.5-25 mcg blister with device 1 inh INHALATION DAILY lorazepam 1 mg tablet 1 mg PO TID PRN (Reason: ANXIETY ) progesterone micronized 200 mg capsule 400 mg PO QHS cyclobenzaprine 5 mg tablet 5 mg PO Q8H atorvastatin 80 mg Tablet 80 mg PO DAILY metoclopramide HCl [Reglan] 10 mg tablet 10 mg PO Q6H PRN (Reason: NAUSEA AND VOMTING ) Qty: 20 0RF albuterol sulfate 90 mcg/actuation HFA aerosol inhaler 2 puff inhalation Q4H PRN (Reason: SHORTNESS OF BREATH/WHEEZING ) Emgality Syringe 120 mg/mL syringe 120 mg subcut Q30D trazodone 50 mg tablet 50 - 100 mg PO QHS atenolol 25 mg tablet 25 mg PO DAILY PRN (Reason: ANXIETY ) diclofenac sodium 3 % gel 1 ea topical BID PRN PRN (Reason: skin irritation) gabapentin 300 mg capsule 300 mg PO TID Emgality Pen 120 mg/mL pen injector 120 mg subcut QMONTH levothyroxine 100 mcg tablet 200 mcg PO DAILY naratriptan 2.5 mg tablet 2.5 mg PO BID PRN (Reason: migraines) Rx Instructions: can repeat dose, two hours after first dose taken. do not exceed more than two doses in 24 hours. calcium carbonate 500 mg calcium (1,250 mg) tablet,chewable 1,000 mg PO Q6H PRN PRN (Reason: heartburn) citalopram 40 mg tablet 40 mg PO DAILY furosemide 40 mg tablet 40 mg PO DAILY Qty: 30 11RF potassium chloride 10 mEq capsule, extended release 10 meq PO DAILY Qty: 30 11RF isosorbide mononitrate 30 mg tablet extended release 24 hr 30 mg PO DAILY Qty: 30 11RF valsartan 320 mg tablet 160 mg PO BID Qty: 30 11RF Other Ambulatory Orders: Venous Duplex US, Unilateral (Stat) Facility: [facility] - Location: [facility] Ordered By: Dr. Nicolás Nieves Primary Care Provider: Nasreen Sutton Referrals: Nasreen Sutton MD [Primary Care Provider] - 1 Week Activity Restrictions/Additional Instructions: You need to keep a washcloth in the skin folds to keep the skin dry in order for the medication to be effective and to help heal the yeast infection You have an ultrasound for the upper extremity and they should call you with an appointment time tomorrow. Print Language: Lao Disposition Disposition: Home, Self Care
[2023-11-27] MEDS: Ondansetron ODT 4 MG Tablet PO (09:27)
--- NOTE | 2023-11-27 09:31 | ED.RN ---
Pt upset about going home. She stated that she will still feel bad when she gets home. I told her to rest and put wash clothes under her skin folds and eat bland food. Nothing greasy or spicy. Pt asked for nausea medication and I told her I would ask Dr Nieves. Order placed for zofran odt
== END 2023-11-27 09:33 | disposition home or self-care (01) ==
PROVIDERS: Emergency Provider Emergency Medicine; PCP Family Medicine; Visit Provider Emergency Medicine
DX: B37.2 Candidiasis of skin and nail (principal); J44.9 Chronic obstructive pulmonary disease, unspecified; E66.01 Morbid (severe) obesity due to excess calories; Z68.43 Body mass index [BMI] 50.0-59.9, adult; M79.89 Other specified soft tissue disorders; R11.0 Nausea; E78.00 Pure hypercholesterolemia, unspecified; I10 Essential (primary) hypertension; E03.9 Hypothyroidism, unspecified; Z79.51 Long term (current) use of inhaled steroids; Z79.890 Hormone replacement therapy; Z79.899 Other long term (current) drug therapy
CPT/HCPCS: 99282

== ENCOUNTER → 2023-11-28 | Outpatient (CLI) | payer MEDICARE, MEDICAID, SELFPAY ==
--- NOTE | 2023-11-28 14:59 | VDUE_ITS ---
Reason For Study: RUE Swelling Right Proximal Right jugular vein is spontaneous, widely patent, phasic, with no intraluminal echogenicity noted. Right subclavian vein is spontaneous, widely patent, phasic, with no intraluminal echogenicity noted. Right Lower Arm Right radial vein is compressible. Right ulnar vein is compressible. Right Arm Right axillary vein is spontaneous, patent, phasic, competent, compressible and demonstrates augmentation. Right brachial vein is compressible. Right cephalic vein is compressible. Right basilic vein is compressible. Patient Safety RUE Venous Duplex with B-Mode, Color and Pulsed Wave Doppler. VL/Venous Duplex US, Unilateral Interpretation Summary Deep veins of the right upper extremity are patent and compressible segmentally . There is no evidence of deep vein thrombosis. The superficial veins of the right upper extr emity, the basilic and cephalic veins, are patent and compressible. There is no evidence of right upper extremity superficial thrombophlebitis involving the veins imaged. Ordering Physician: Nicolás Nieves Referring Physician: Charla Garcias Performed By: Elvin Barraza RVT ???
== END | disposition home or self-care (01) ==
PROVIDERS: PCP Family Medicine; Referring Provider Nurse Practitioner Gerontology; Visit Provider Emergency Medicine
DX: R06.02 Shortness of breath (principal); R60.0 Localized edema
CPT/HCPCS: 36415; 80048; 83880; 93971

== ENCOUNTER 2023-11-30 09:29 | Emergency (ER) | payer MEDICARE, MEDICAID, SELFPAY ==
[2023-11-30 09:29] VITALS: BP 157/96; PULSE 78; RESP 16; TEMP 36.9; O2SAT 98; BMI 53.2
--- NOTE | 2023-11-30 09:50 | CT_ITS ---
STUDY: CT BRAIN WITHOUT CONTRAST REASON FOR EXAM: Female, 53 years old. headache, dizziness RADIATION DOSAGE (If Supplied By Facility): CTDIvol = ( 44.99 ) mGy, DLP = ( 796.11 ) mGycm TECHNIQUE: Transaxial CT imaging of the brain was performed without administration of intravenous contrast material. Individualized dose optimization techniques were used for this CT. COMPARISON: Comparison is made with prior study dated November 21, 2023. FINDINGS: Normal soft tissue structures. Normal calvarium. Normal size ventricles and extra-axial spaces for the patient''s age. Normal white matter tracts of the cerebral hemispheres. Normal basal ganglia and thalami. Normal brainstem. Normal cerebellum. There is no intracranial hemorrhage. There are no findings of an acute ischemic infarction. Normal visualized paranasal sinuses. CT/Brain/Head without Contrast IMPRESSION: Normal unenhanced CT scan of the brain. Electronically Signed: Seun Vieira MD at 11:21 EDT ,
[2023-11-30 10:25] LABS: Absolute Neutrophil Count 12.7 X10^3/uL (2.0-7.7); Basophil# 0.04 X10^3/uL; Basophil% 0.3 % (0-1); Eosinophil# 0.02 X10^3/uL; Eosinophils% 0.1 % (0-5); Hematocrit 33.5 % (37-47); Hemoglobin 10.2 g/dL (12.0-15.0); Lymphocyte % 11.5 % (19-41); Mean Corp Hgb Conc 30.4 g/dL (32-36); Mean Corpuscular Hgb 26.6 pg (27.0-32.0); Mean Corpuscular Volume 87.5 fL (81-99); Mean Platelet Vol. 9.7 fl (6.2-12.0); Monocyte# 1.08 X10^3/uL; Monocyte% 6.9 % (0-10); NRBC Flagged by Analyzer 0 % (0-5); Neutrophil # 12.67 X10^3/uL (2.7-7.7); Neutrophil % 80.5 % (47-70); Platelet Count 437 K/mm3 (150-450); RBC Distribution Width CV 17.2 % (11.6-14.6); RBC Distribution Width SD 55.3 fl (35.1-43.9); Red Blood Count 3.83 M/mm3 (4.2-5.4); White Blood Count 15.7 K/mm3 (4.4-11.0)
[2023-11-30] MEDS: Metoclopramide 10 MG/2 ML Vial 5 MG IV (10:28)
[2023-11-30] MEDS: 0.9% Normal Saline (500mL Bag) 500 ML 1000 ML IV (10:28)
[2023-11-30 10:43] LABS: Anion Gap 5 (5-15); BUN 11 mg/dL (7-18); BUN/Creat Ratio 11.8 RATIO (10-20); Calcium,Total 9.7 mg/dL (8.5-10.1); Chloride 107 mmol/L (98-107); Creatinine, Serum 0.94 mg/dL (0.55-1.02); EST Glomerular Filtration Rate 67 mL/min (>60); Est Glom Filt Rate - Afr Amer 81 mL/min (>60); Glucose 131 mg/dL (74-106); Potassium 4.7 mmol/L (3.5-5.1); Sodium Level 137 mmol/L (136-145)
[2023-11-30] MEDS: Acetaminophen 500 MG Tablet 1000 MG PO (11:04)
[2023-11-30 11:18] LABS: Mucous, Urine 0 SEEN /hpf (<or=2+)
[2023-11-30 11:41] LABS: Color, Urine Yellow (Yellow); Glucose, Dipstick Normal (Normal); Ketone-Dipstick Negative (Negative); Leukocyte Esterase-Dipstick 100 /ul (Negative); Nitrite-Dipstick Negative (Negative); Occult Blood-Urine 10 /ul (Negative); Protein-Dipstick 30 mg/dl (Negative); Urine Bilirubin Dipstick Negative (Negative); Urine Clarity Sl. Cloudy (Clear); Urine Urobilinogen Normal (Normal)
[2023-11-30 11:53] LABS: Bacteria 1+ /hpf (None Seen); Squamous Epithelial Cells - UA 0-5 SEEN /hpf (5-10); White Blood Cells 5-10 SEEN /hpf (0-5)
[2023-11-30 11:54] LABS: Red Blood Cells-Urine 0-5 SEEN /hpf (0-5)
--- NOTE | 2023-11-30 12:46 | EDS_ITS ---
HPI History of Present Illness Chief Complaint: Nausea/Vomiting Informant: patient Narrative Narrative: Presents by private vehicle, states mother dropped her off. She has had worsening vertigo symptoms for the past week. States the room is spinning. She is have nausea and vomiting when she has the symptoms. History of similar however this is worse. Reports stage IV kidney disease. Denies urinary symptoms. Denies cough. Denies diarrhea. Denies hematemesis. States she does have headache. Denies recent head trauma. Prior similar symptoms: Yes PFSH PFSH Medical History MARYANA (acute kidney injury) Walker as ambulation aid Ambulates with cane Low iron History of renal disease High cholesterol DVT (deep venous thrombosis) PONV (postoperative nausea and vomiting) Stroke/cerebrovascular accident Sleep apnea Fall Cardiology follow-up encounter Scalp hematoma Pulmonary embolism Post-menopausal Thyroid disease Injury of head and neck Dietary restriction Difficulty swallowing BiPAP (biphasic positive airway pressure) dependence COPD (chronic obstructive pulmonary disease) Shortness of breath on exertion Leg cramps History of pain when walking History of edema History of echocardiogram History of stress test Syncope Abnormal glucose Noncompliance DAVY treated with BiPAP UTI (urinary tract infection) Vitamin D deficiency Restless leg syndrome Vitamin B12 deficiency Iron deficiency anemia History of chronic back pain Wears glasses Arthritis Non-smoker Hydronephrosis Depression Anemia Migraine headache Chronic kidney disease Diabetes mellitus Gout Celiac disease Hyperlipidemia GERD (gastroesophageal reflux disease) Dyspnea on exertion Chest pain Hypersomnia Cardiac murmur Microcytic anemia Hypertension Morbid obesity with BMI of 40.0-44.9, adult Asthma Hypothyroidism Anxiety Home Medications ?Medication ?Instructions ?Recorded ?Last Taken ?Type citalopram 40 mg tablet 40 mg PO DAILY DEPRESSION/ANXIETY 07/27/19 09/30/23 History budesonide-formoterol HFA 160 2 puff inhalation BID COPD 04/02/20 09/30/23 History mcg-4.5 mcg/actuation aerosol inhaler (Symbicort) lorazepam 1 mg tablet 1 mg PO TID PRN ANXIETY 05/04/22 02/08/23 History progesterone micronized 200 mg 400 mg PO QHS HORMONES 10/11/22 09/30/23 History capsule metoclopramide HCl 10 mg tablet 10 mg PO Q6H PRN NAUSEA AND 01/07/23 Unknown Rx (Reglan) VOMTING #20 tabs atorvastatin 80 mg tablet 80 mg PO DAILY CHOLESTEROL 02/10/23 09/30/23 History cyclobenzaprine 5 mg tablet 5 mg PO Q8H MUSCLE SPASMS 02/10/23 09/30/23 History fluticasone fur. 100 mcg-umeclid 1 inh inhalation DAILY COPD 06/20/23 09/30/23 History 62.5 mcg-vilant 25 mcg inhalat.powder (Trelegy Ellipta) albuterol sulfate 90 mcg/actuation 2 puff inhalation Q4H PRN 07/29/23 08/22/23 History aerosol inhaler SHORTNESS OF BREATH/WHEEZING galcanezumab-gnlm 120 mg/mL 120 mg subcut Q30D migraines 07/29/23 Unknown History subcutaneous syringe (Emgality) trazodone 50 mg tablet 50 - 100 mg PO QHS SLEEP 07/29/23 09/30/23 History atenolol 25 mg tablet 25 mg PO DAILY PRN ANXIETY 08/23/23 08/22/23 History diclofenac sodium 3 % topical gel 1 ea topical BID PRN PRN skin 09/30/23 Unknown History irritation gabapentin 300 mg capsule 300 mg PO TID pain 09/30/23 09/30/23 History galcanezumab-gnlm 120 mg/mL 120 mg subcut QMONTH migraine 09/30/23 Unknown History subcutaneous pen injector (Emgality Pen) calcium carbonate 1,000 mg PO Q6H PRN PRN heartburn 10/01/23 Unknown History levothyroxine 100 mcg tablet 200 mcg PO DAILY thyroid 10/01/23 09/30/23 History naratriptan 2.5 mg tablet 2.5 mg PO BID PRN migraines 10/01/23 Unknown History furosemide 40 mg tablet 40 mg PO DAILY #30 tabs 10/18/23 Unknown Rx isosorbide mononitrate 30 mg 30 mg PO DAILY HEART #30 tabs 10/18/23 Unknown Rx tablet,extended release 24 hr potassium chloride 10 mEq 10 meq PO DAILY SUPPLEMENT #30 10/18/23 Unknown Rx capsule,extended release caps valsartan 320 mg tablet 160 mg (1/2 x 320 mg) PO BID BLOOD 10/18/23 Unknown Rx PRESSURE #30 tabs ezetimibe 10 mg tablet (Zetia) 10 mg PO QDAY #30 tabs 11/28/23 Unknown Rx meclizine 25 mg tablet 25 mg PO 4X/DAY PRN PRN Dizziness 11/30/23 Unknown Rx #20 tabs ondansetron 4 mg disintegrating 4 mg PO Q8H PRN PRN Nausea #10 tabs 11/30/23 Unknown Rx tablet Allergy/AdvReac Type Severity Reaction Status Date / Time hydrochlorothiazide AdvReac Intermediate Contributes Verified 11/28/23 13:51 to gout naproxen (From Naprosyn) AdvReac Intermediate Nausea Verified 11/28/23 13:51 aspirin AdvReac Nausea Verified 11/28/23 13:51 Family History Father , Age 72 Hypertension Mother CAD (coronary artery disease) Myocardial infarction, Onset Age: 55 Hypertension Sister CAD (coronary artery disease) Brother Cancer Surgical History History of cardiac catheterization History of History of carpal tunnel surgery of right wrist History of carpal tunnel surgery of left wrist Hx of cystoscopy History of left heart catheterization (11/11/20) history of uterine ablation Social History household members: none housing: apartment Smoking Status: Never smoker alcohol intake: never substance use type: does not use caffeine: No ROS ROS ED Constitutional Constitutional ED: Denies chills, fever(s) or sweats Eyes Eyes: Denies change in vision ENT ENT ED: Denies dysphagia or sore throat Cardiovascular Cardiovascular: Denies chest pain, leg edema, palpitations or racing heartbeat Respiratory/Chest Respiratory/Chest: Denies cough, dyspnea or dyspnea on exertion Gastrointestinal Gastrointestinal: Reports nausea and vomiting; Denies abdominal pain or diarrhea Genitourinary Genitourinary ED: Denies dysuria, hematuria or urinary frequency Musculoskeletal Musculoskeletal: Denies back pain, extremity pain or neck pain Integumentary Denies rash or wounds Neurologic Neurologic: Reports headache(s) and other Details: Dizziness ; Denies paresthesias or weakness EXAM Physical Exam Const Vital Signs: 11/30/23 09:29 Temperature 98.4 F Temperature Source Oral Pulse Rate 78 Respiratory Rate 16 Blood Pressure 157/96 H Blood Pressure Mean 116 Pulse Ox 98 Oxygen Delivery Method Room Air Positive well nourished and well developed General Appearance ED: well developed and NAD HEENT Reports moist mucous membranes normocephalic and atraumatic Eyes EOMs intact bilaterally and conjunctivae normal Eyes Narrative: No nystagmus General Eye ED: Yes normal appearance of both eyes Neck no lymphadenopathy and supple Neck Narrative: No meningismus General: Negative for tenderness Chest Wall Chest: Negative for tenderness Resp normal respiratory effort and normal air movement Effort and Inspection: symmetric chest movement; Negative for respiratory distress Cardio regular rate, regular rhythm and no murmurs Peripheral Pulses: pulses 2+ throughout GI normal to inspection, nondistended, normoactive bowel sounds and non-tender Palpation: Negative for guarding or rebound tenderness present Back/Spine no CVA tenderness and no thoracic nor lumbar tenderness Extremity normal to inspection General Extremety ED: Negative for edema or tenderness General Extremity: Negative for edema Neuro oriented x3, CN's II-XII intact bilaterally and no sensory deficits noted Neuro Narrative: NIH of 0. Sensorium / Orientation: awake and alert Skin no rashes or lesions noted and no wounds MDM MDM MDM Narrative Medical decision making narrative: Interventions / MDM: Differential diagnosis: Vertigo, electrolyte abnormalities Diagnosis considered but do not suspect: N/A My EKG interpretation: N/A Imaging independently reviewed and interpreted by myself: CT brain: No acute process. External documents reviewed: N/A Test considered but not ordered:N/A ED course: Patient with no focal deficits, NIH of 0. Reporting a worsening vertigo symptoms. She is stage IV kidney disease per her history, IV established for fluids, labs are drawn, CT brain ordered. Labs are white count 15.7 she has no cough urine was added. Results leukocytes white blood cells and 1+ bacteria. She declines any symptoms on we discussion again. Therefore urine culture sent.No antibiotics at this time. CT brain was negative. 1240: Reevaluation did walk to the restroom states slight dizziness. No nausea or vomiting. She is ordered for meclizine. Discussed with patient we will treat symptomatically. She currently able to ambulate. Discussed return precautions. Of note patient has normal renal function today with a normal GFR. Outpatient follow-up. All questions were answered. Re-evaluation: stable Disposition discussed with patient/family/significant other: Patient. Case discussed with consulting clinician: N/A This note was generated with [employer] software. It may contain incorrect words, spelling, and punctuation that were not noted in checking the note before signing. Lab Data Attestation: I reviewed the patient's lab results. Labs: Laboratory Results - last 24 hr 11/30/23 11/30/23 10:15 11:10 WBC 15.7 H RBC 3.83 L Hgb 10.2 L Hct 33.5 L MCV 87.5 MCH 26.6 L MCHC 30.4 L RDW Std Deviation 55.3 H RDW Coeff of Alfredo 17.2 H Plt Count 437 MPV 9.7 Immature Gran % (Auto) 0.700 Neut % (Auto) 80.5 H Lymph % (Auto) 11.5 L [place] % (Auto) 6.9 Eos % (Auto) 0.1 Baso % (Auto) 0.3 Absolute Neuts (auto) 12.7 H Absolute Lymphs (auto) 1.80 Nucleated RBC % 0 Sodium 137 Potassium 4.7 Chloride 107 Carbon Dioxide 26.0 Anion Gap 5 BUN 11 Creatinine 0.94 Estim Creat Clear Calc 97.40 Est GFR (MDRD) Af Amer 81 Est GFR (MDRD) Non-Af 67 BUN/Creatinine Ratio 11.8 Glucose 131 H Calcium 9.7 Urine Color Yellow Urine Clarity Sl. Cloudy Urine pH 7.0 Ur Specific [place] 1.010 Urine Protein 30 H Urine Glucose (UA) Normal Urine Ketones Negative Urine Occult Blood 10 H Urine Nitrite Negative Urine Bilirubin Negative Urine Urobilinogen Normal Ur Leukocyte Esterase 100 H Urine RBC 0-5 SEEN Urine WBC 5-10 SEEN Ur Squamous Epith Cells 0-5 SEEN Urine Bacteria 1+ Urine Mucus 0 SEEN Radiography Diagnostic Testing: Clinical Impression(s) from Imaging Studies Brain CT 11/30/23 09:50 IMPRESSION: Normal unenhanced CT scan of the brain. Electronically Signed: Seun Vieira MD at 11:21 EDT , Discharge Plan Triage Chief Complaint: Nausea/Vomiting ED Provider: Gm Martinez Dx/Rx/DC Orders Clinical Impression: Vertigo, Nausea & vomiting Instructions: ED Vertigo, Unspecified, ED Vomiting (Adult) Prescriptions: New meclizine 25 mg tablet 25 mg PO 4X/DAY PRN PRN (Reason: Dizziness) Qty: 20 0RF ondansetron 4 mg tablet,disintegrating 4 mg PO Q8H PRN PRN (Reason: Nausea) Qty: 10 0RF No Action budesonide-formoterol [Symbicort] 160-4.5 mcg/actuation HFA aerosol inhaler 2 puff INHALATION BID ezetimibe [Zetia] 10 mg tablet 10 mg PO QDAY Qty: 30 11RF Trelegy Ellipta 100-62.5-25 mcg blister with device 1 inh INHALATION DAILY lorazepam 1 mg tablet 1 mg PO TID PRN (Reason: ANXIETY ) progesterone micronized 200 mg capsule 400 mg PO QHS cyclobenzaprine 5 mg tablet 5 mg PO Q8H atorvastatin 80 mg Tablet 80 mg PO DAILY metoclopramide HCl [Reglan] 10 mg tablet 10 mg PO Q6H PRN (Reason: NAUSEA AND VOMTING ) Qty: 20 0RF albuterol sulfate 90 mcg/actuation HFA aerosol inhaler 2 puff inhalation Q4H PRN (Reason: SHORTNESS OF BREATH/WHEEZING ) Emgality Syringe 120 mg/mL syringe 120 mg subcut Q30D trazodone 50 mg tablet 50 - 100 mg PO QHS atenolol 25 mg tablet 25 mg PO DAILY PRN (Reason: ANXIETY ) diclofenac sodium 3 % gel 1 ea topical BID PRN PRN (Reason: skin irritation) gabapentin 300 mg capsule 300 mg PO TID Emgality Pen 120 mg/mL pen injector 120 mg subcut QMONTH levothyroxine 100 mcg tablet 200 mcg PO DAILY naratriptan 2.5 mg tablet 2.5 mg PO BID PRN (Reason: migraines) Rx Instructions: can repeat dose, two hours after first dose taken. do not exceed more than two doses in 24 hours. calcium carbonate 500 mg calcium (1,250 mg) tablet,chewable 1,000 mg PO Q6H PRN PRN (Reason: heartburn) citalopram 40 mg tablet 40 mg PO DAILY furosemide 40 mg tablet 40 mg PO DAILY Qty: 30 11RF potassium chloride 10 mEq capsule, extended release 10 meq PO DAILY Qty: 30 11RF isosorbide mononitrate 30 mg tablet extended release 24 hr 30 mg PO DAILY Qty: 30 11RF valsartan 320 mg tablet 160 mg PO BID Qty: 30 11RF Primary Care Provider: Nasreen Sutton Referrals: Nasreen Sutton MD [Primary Care Provider] - 3-5 Days Activity Restrictions/Additional Instructions: CT brain normal. Labs stable your creatinine normal today at 0.94 GFR is 67. You will be called if your urine culture is positive for treatment as you have no urine symptoms. Continue oral fluids for hydration. Use medications as prescribed. Follow-up with your doctor. If your symptoms worsen not controlled medications, return to the ED for reevaluation. Print Language: Swiss Disposition Disposition: Home, Self Care Discharge Date/Time: 11/30/23 13:08
== END 2023-11-30 13:08 | disposition home or self-care (01) ==
PROVIDERS: Emergency Provider Emergency Medicine; PCP Family Medicine; Visit Provider Emergency Medicine
DX: R42 Dizziness and giddiness (principal); J44.9 Chronic obstructive pulmonary disease, unspecified; E11.22 Type 2 diabetes mellitus with diabetic chronic kidney disease; R11.2 Nausea with vomiting, unspecified; N18.9 Chronic kidney disease, unspecified; G47.33 Obstructive sleep apnea (adult) (pediatric); Z86.718 Personal history of other venous thrombosis and embolism; Z86.711 Personal history of pulmonary embolism
CPT/HCPCS: 70450; 80048; 81001; 85025; 87077; 87086; 87088; 87186; 96360; 99282; J7030; A4216

== ENCOUNTER → 2023-12-01 | Outpatient (CLI) | payer MEDICARE, MEDICAID, SELFPAY ==
[2023-12-01 11:09] LABS: AST(SGOT) 18 U/L (15-37); Alanine Aminotransfer ALT/SGPT 18 U/L (13-56); Albumin, Serum 2.7 g/dL (3.2-5.0); Alkaline Phosphatase 157 U/L (45-117); Cholesterol 104 mg/dL (200); Globulin 4.6 g/dL (2.2-4.2); High Density Lipoprotein 40 mg/dL; Protein, Total 7.3 g/dL (6.4-8.2); Triglycerides 137 mg/dL; Very Low Density Lipoprotein 27 mg/dL (5-40)
== END | disposition home or self-care (01) ==
PROVIDERS: PCP Family Medicine; Referring Provider Nurse Practitioner Gerontology; Visit Provider Nurse Practitioner Gerontology
DX: E78.5 Hyperlipidemia, unspecified (principal)
CPT/HCPCS: 36415; 80061; 80076

== ENCOUNTER → 2023-12-20 | Outpatient (CLI) | payer MEDICARE, MEDICAID, SELFPAY ==
--- NOTE | 2023-12-20 09:47 | STRESSREP ---
Stress Test Report Date: 12/20/2023 Procedure: Pharmacologic stress nuclear imaging study Indications: Chest pain Consent: Per the patient Procedure: The patient underwent pharmacologic (Regadenoson 0.4mg ) evaluation with a peak heart rate of 90 beats per minute (53%predicted maximal heart rate) and a peak blood pressure of 120/84 mmHg. The baseline ECG demonstrated sinus rhythm. The peak pharmacologic ECG demonstrated no ischemic changes. There were no cardiac dysrhythmias pretest, during pharmacologic infusion, or recovery. There was no complaint of chest discomfort during pharmacologic infusion or recovery. The patient was injected with 10.0 millicuries of technetium 99m Cardiolite and subsequently rest SPECT Cardiolite nuclear imaging was obtained in the horizontal long, vertical long, and short axis views. The patient underwent pharmacologic (Regadenoson) evaluation. The patient was injected with 32.7 millicuries of technetium 99m Cardiolite and subsequently stress SPECT Cardiolite nuclear imaging was obtained in the horizontal long, vertical long, and short axis views. A gated Cardiolite study at peak stress was obtained. The examination was stopped secondary to completion of protocol. Rest and stress SPECT Cardiolite nuclear imaging status post realignment, normalization, and attenuation correction demonstrate no fixed or reversible perfusion defects. There is end systolic thickening and brightening. The gated Cardiolite study demonstrates myocardial thickening and inward wall motion. The reported LVEF is 82%. Impression: 1. Pharmacologic (Regadenoson) evaluation 2. Peak pharmacologic ECG with no ischemic changes. 3. There were no cardiac dysrhythmias pretest, during pharmacologic infusion, or recovery. 5. Rest and stress SPECT Cardiolite nuclear imaging demonstrate relative uniform tracer uptake and myocardial perfusion appearing within normal limits. 6. The gated Cardiolite study reports an LVEF of 82%. This note was generated with [employer] software. It may contain incorrect words, spelling, and punctuation that were not noted in checking the note before signing.
== END | disposition home or self-care (01) ==
LOC: CVS 06:17
PROVIDERS: PCP Family Medicine; Referring Provider Nurse Practitioner Gerontology; Visit Provider Nurse Practitioner Gerontology
DX: R07.9 Chest pain, unspecified (principal); R06.02 Shortness of breath; R53.83 Other fatigue
CPT/HCPCS: 78452; 93017; A9500; A4216; J2785

== ENCOUNTER 2024-01-03 19:51 | Emergency (ER) | payer MEDICARE, MEDICAID, SELFPAY ==
[2024-01-03 19:52] VITALS: BP 123/78; PULSE 92; RESP 16; TEMP 37.2; O2SAT 94; BMI 52.9
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
--- NOTE | 2024-01-03 20:45 | CT_ITS ---
EXAM: CT LUMBAR SPINE WITHOUT INTRAVENOUS CONTRAST CLINICAL INDICATION: back pain TECHNIQUE: Helically acquired images were obtained of the lumbar spine without intravenous contrast. 2D reformats were reviewed. This CT exam was performed using one or more of the following dose reduction techniques: automated exposure control, adjustment of the mA and/or kV according to patient size, and/or use of iterative reconstruction technique. COMPARISON: CT abdomen and pelvis, 08/12/2023. FINDINGS: VERTEBRAE: There is multilevel facet arthrosis and endplate osteophytosis worst at L4-5 and L5-S1. There is no fracture or spondylolysis. No spondylolisthesis. No discrete lytic or blastic abnormality. DISCS/SPINAL CANAL/NEURAL FORAMINA: Multilevel intervertebral disc height loss with multiple disc bulges and/or herniations most conspicuous at L3-L4 through L5-S1 resulting in at least mild multilevel spinal canal and neural foraminal stenosis. VASCULATURE: Atherosclerosis of the aorta and its branch vessels. LYMPH NODES: No significant abnormality. No retroperitoneal adenopathy. CT/Spine Lumbar without Contrast IMPRESSION: There is no fracture or spondylolysis. No spondylolisthesis. Degenerative changes. Electronically Signed: Festus Huizar DO at 21:26 EST ,
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
[2024-01-03] MEDS: oxyCODONE 5 MG Tablet PO (21:06)
[2024-01-03] MEDS: Ibuprofen 200 MG Tablet 400 MG PO (21:06)
--- OUTSIDE RECORDS SUMMARY | 2024-01-03 21:11 | XMS RPT_ITS | CCD ---
Author Organization [facility] Care Team Providers Care Discharge Coordinator Name Role Phone Ysabel Lutz Primary Care Provider KAREN BLOOD BANK SPECIALIST - YSABEL MOREL Primary Care Phys ician Milan Cervantes Primary Care Provider Ysabel Lutz CNP Primary Care Provider [phone] Clifton Sanchez Chi Primary Care Provider [phone] DR LUZ ELENA SANCHEZ MD Primary Care Physician PHYSICIAN, NONE Primary Care Physician Unavailab le Unavailable Primary Care Provider UnavailAram Cain DO Primary Care Provider PHYSICIAN, NOT RECORDED Primary Care Physician U navailable Aram Johnson DO Primary Care Provider ARAM JOHNSON DO Primary Care Physician Aram Johnson DO Primary Care Provider [phone] NASREEN BERNABE MD Primary Care Physician NASREEN BERNABE MD Primary Care Physician NASREEN BERNABE MD Primary Care Unavailable ELIAN DICKSON Attending Unavailable NASREEN BERNABE MD Primary Care Unavailable LIA PULLIAM MD Attending Unavailable NASREEN BERNABE MD Primary Care Unavailable FERN MALDONADO DO Attending Unavailable ARAM JOHNSON DO Primary Care Unavailable DR DEBBIE CHATMAN DO Attending Unavailtamy mehta PHYSICIAN, NOT RECORDED Primary Care UnavailSHEELA Pool MD Attending Unavailable ARAM JOHNSON DO Primary Care Unavailable AUDRA PHILLIPS Attending Unavailable ARAM JOHNSON DO Primary Care Unavailable LAURA RICHARDSON MD Attending Unavail able SRINIVASA GONZALEZ BRION Primary Care Unavailable FROMMELT DO, ILANA Attending Unavailable NENA GONZALEZ, DR MATHIEU Montano Attending Chau BERNABE MD, CHALON Primary Care Unavailable SRINIVASA GONZALEZ, BRION Primary Care Unavailable NENA GONZALEZ, DR MATHIEU Montano Attending Unavai lable ALEX DO, ARAM Primary Care Unavailable ELIAN DICKSON Attending Unavailable SRINIVASA GONZALEZ, NASREEN Primary Care Unavailable FROMMELT DO, ILANA Attending Unavailable SRINIVASA GONZALEZ, CHALON Primary Care Unavailable DYLAN GONZALEZ, LAURA Mehta Attending Unavail able ALEX DO, ARAM Primary Care Unavailable GREGORY GONZALEZ, DR COTTER Attending Unavailabl janine PULLIAM MD, LIA Attending Unavailable ALEX DO, ARAM Primary Care Unavailable AUDRA PHILLIPS Attending Unavailable SRINIVASA GONZALEZ, CHALON Primary Care Unavailable ALEX DO, AARM Primary Care Unavailable DYLAN GONZALEZ, LAURA Mehta Attending Unavail able JESSE MORALEZ, FABIAN Attending Unavailable PHYSICIAN, NOT RECORDED Primary Care Unavaila ble ALEX DO, ARAM Primary Care Unavailable DYLAN GONZALEZ, LAURA Mehta Attending Unavail able ALEX DO, ARAM Primary Care Unavailable MARIZA QUINONEZ MD Attending Unavailable ALEX DO, ARAM Primary Care Unavailable OWOC DO, DR DEBBIE Zelaya Attending Unavailabl ALEX Dodson MD Attending Unavailable ALEX DO, ARAM Primary Care Unavailable ALEX DO, ARAM Primary Care Unavailable FROMMELT DO, ILANA Attending Unavailable ALEX DO, ARAM Primary Care Unavailable ELIAN DICKSON Attending Unavailable ALEX DO, ARAM Primary Care Unavailable PAU GONZALEZ, DR DAQUAN Crook Attending Unavailabl e ALEX DO, ARAM Primary Care Unavailable PAU GONZALEZ, DR DAQUAN Crook Attending Unavailabl e DOMINGO BLOOD BANK SPECIALIST-WRAPPING CLERK, ELY Bose Attending Unavaila ble GARY BLOOD BANK SPECIALIST-WRAPPING CLERK, OSCAR Zelaya Referring Unavai lable GARY BLOOD BANK SPECIALIST-WRAPPING CLERK, OSCAR Zelaya Admitting Unavai lable ALEX DO, ARAM Primary Care Unavailable Alex DO, Aram M Primary Care Provider [phone] DanielClifton Chi Primary Care Provider [phone] Srinivasa GONZALEZ, Nasreen Primary Care Provider SRINIVASA GONZALEZ, CHALON Primary Care Unavailable MALIK GONZALEZ, JANINA Attending Unavailable MALIK GONZALEZ, JANINA Attending Unavailable SRINIVASA GONZALEZ, [facility] Primary Care Unavailable SATNAM RODRIGUEZ Referring Unavailable ALEX, ARAM DEL VALLE Primary Care Unavailabl e ALEX, ARAM IVON Primary Care Unavailabl e ISAAC VALENTINE Referring Unavailable ALEX, ARAM DERASE Primary Care Unavailabl e ALEX, ARAM DERASE Primary Care Unavailabl e ALEX, ARAM IVON Primary Care Unavailabl e ALEX, ARAM IVON Primary Care Unavailabl e ALEX, ARAM IVON Primary Care Unavailabl e SRINIVASA, CHALON Primary Care Unavailable SRINIVASA, CHALON Primary Care Unavailable ALEX, ARAM DERASE Primary Care Unavailabl e ALEX, ARAM IVON Primary Care Unavailabl e ALEX, ARAM IVON Primary Care Unavailabl e ALEX, ARAM IVON Primary Care Unavailabl e ALEX, ARAM DERASE Primary Care Unavailabl e ALEX, ARAM IVON Primary Care Unavailabl e SATNAM RODRIGUEZ Referring Unavailable ALEX, ARAM DERASE Primary Care Unavailabl e ALEX, ARAM IVON Primary Care Unavailabl e Allergies Allergy Classification Reported Allergen(s) Allergy Type Date of Onset Reaction(s) Facility (1 source) Aluminum aspirin Drug Allergy 1 Nausea Only [facility] Work Phone: (20 sources) hydroCHLOROthia zide; Translations: [HYDROCHLOROTHI AZIDE] Drug Allergy 0 Unknown [facility] Work Phone: (20 sources) Naproxen; Translations: [naproxen] Drug Allergy 9 Vomiting, Unknown [facility] Work Phone: (20 sources) Aspirin; Translations: [aspirin] Drug Allergy NAUSEA [facility] (20 sources) Salicylate product; Translations: [SALICYLATES] Propensity to adverse reactions 8 [facility] Work Phone: (11 sources) Penicillin; Translations: [penicillin] Drug Allergy [facility] Comment on above: Upset stomach (3 sources) Penicillins; Translations: [PENICILLINS] Drug Allergy 4 Unknown [facility] Medications Current Medications Medication Drug Class(es) Dates Sig (Normalized) Sig (Original) acetaminophen 325 mg oral capsule (20 sources) Start: 02-28-2023 End: 03-10-2023 acetaminophen 325 mg oral capsule Dose : 650 mg = 2 cap(s), Oral, q4h, PRN for pain, X 10 day(s), # 40 cap(s), 0 Refill(s), 03/10/23 12:49:00 PM EST Start Date: 02/28/23 Stop Date: 03/10/23 Status: Ordered Start: 06-09-2021 take 3 tablets by mo azh every six hours as needed for pain Tylenol Extra Strength 500 mg oral tablet 3 tab, Oral, q6hr, PRN as needed for pain, 0 Refill(s) Start Date: 06/09/21 Status: Ordered Start: 01-08-2008 acetaminophen( TYLENOL 325 MG TAB) 0 01/08/2008 Active take 1 tablet by norman every eight hours as needed for pain acetaminophen (TYLENOL) 650 MG extended release tablet Take 650 mg by mouth every 8 hours as needed for Pain 0 Active acetaminophen 325 mg / HYDROcodone bitartrate 5 mg oral tablet (12 sources) Opioid Agonist Start: 03-28-2023 End: 03-31-2023 take 1 tablet by mouth every six hours as needed for pain [place] 325- 5 mg oral tablet Dose = 1 tab(s), Oral, q6h, PRN for pain, X 3 day(s), # 12 tab(s), 0 Refill(s), Pulmonary embolism, 128.5 Start Date: 03/28/23 Stop Date: 03/31/23 Status: Ordered Start: 02-17-2023 End: 02-20-2023 take 1 tablet by mouth every six hours as needed for pain [place] 325- 5 mg oral tablet Dose = 1 tab(s), Oral, q6h, PRN for pain, # 10 tab(s), 0 Refill(s), Headache, 129.4 Start Date: 02/17/23 Stop Date: 02/20/23 Status: Ordered [id number] 200 actuat albuterol 0.09 mg/actuat metered dose inhaler (20 sources) beta2-Adrenergic Agonist Start: 07-09-2021 take 2 puff(s) by inhalation every four hours as needed for wheezing Proventil HFA MDI (90 mcg/inh) inhalation aerosol 2 puff(s), Inhalation, q4h, PRN as needed for wheezing, Managed by pulmonology, # 3 EA, 0 Refill(s), Pharmacy: [id number], 162.6, cm, 06/10/21 8:22:00 EDT, Height, kg, 06/10/21 8:22:00 EDT, Dosing Weight Start Date: 07/09/21 Status: Ordered Start: 10-25-2019 take 2 puff(s) by in halation every four hours as needed for wheezing Proventil HFA MDI (90 mcg/inh) inhalation aerosol 2 puff(s), Inhalation, q4h, PRN as needed for wheezing, Managed by pulmonology, # 3 EA, 3 Refill(s), Pharmacy: [id number], 164.5, cm, 10/22/19 13:38:00 EDT, Height, kg, 10/22/19 13:38:00 EDT, Dosing Weight Start Date: 10/25/19 Status: Ordered take 2 puff(s) by in halation every four hours as needed albuterol sulfate HFA (VENTOLIN HFA) 108 (90 Base) MCG/ACT inhaler Inhale 2 puffs into the lungs every 4 hours as needed for Shortness of Breath 0 Active albuterol sulfate HFA 108 (90 Base) MCG/ACT inhaler 4 puff (1 source) Start: 05-27-2020 albuterol sulf ate HFA 108 (90 Base) MCG/ACT inhaler 4 puff ascorbic acid 500 mg oral tablet (1 source) Vitamin C take 1 tablet by mouth once daily ascorbic acid (VITAMIN C) 500 MG tablet Take 500 mg by mouth daily 0 Active atogepant (QULIPTA) 30 mg tablet (14 sources) Start: 11-17-2021 atogepant (QUL IPTA) 30 mg tablet Take by mouth. 11/17/2021 Active Start: 11-17-2021 atogepant (QUL IPTA) 30 mg tablet Take by mouth. 0 11/17/2021 Active Comment on above: Take by mouth. atogepant 60 MG Oral Tablet [Qulipta] (20 sources) Start: 2 Qulipta 60 mg oral tablet Dose : 60 mg = 1 tab(s), Oral, qDay, # 30 tab(s), 0 Refill(s) Start Date: 06/01/21 Status: Ordered benzonatate 100 mg oral capsule (20 sources) Non-narcotic Antitussive Start: 3 take 2 capsules by mouth every eight hours as needed benzonatate (TESSALON PERLES) 100 mg capsule Take 2 capsules by mouth three times daily as needed. 30 capsule 11/16/2022 Active Start: 02-25-2022 End: 04-17-2022 take 1 capsule by mouth every eight hours as needed Benzonatate 200 mg capsule Take 1 capsule by mouth three times daily as needed. 21 capsule 0 02/25/2022 04/17/2022 Discontinued (Course of therapy completed) Comment on above: Take 1 capsule by mo ut three times daily as needed. Take 2 capsules by m outh three times daily as needed. Budesonide / formoterol (15 sources) Corticosteroid, beta2-Adrenergic Agonist budesonide-form oterol (SYMBICORT) 160-4.5 mcg/actuation inhaler Inhale 2 Puffs as instructed. Active budesonide-formo terol (SYMBICORT) 160-4.5 mcg/actuation inhaler Inhale 2 Puffs as instructed. 0 Active take 2 puff(s) by in halation twice daily budesonide-formoterol (SYMBICORT) 160-4. 5 MCG/ACT AERO Inhale 2 puffs into the lungs 2 times daily 0 Active Comment on above: Inhale 2 Puffs as in structed. cephalexin 500 mg oral capsule (9 sources) Cephalosporin Antibacterial Start: 09-05-2023 End: 09-10-2023 cephalexin 500 mg oral capsule Dose : 500 mg = 1 cap(s), Oral, q12h, X 5 day(s), # 10 cap(s), 0 Refill(s), 09/10/23 8:58:00 PM EDT, 137.8 Start Date: 09/05/23 Stop Date: 09/10/23 Status: Ordered Start: 03-05-2023 End: 03-11-2023 cephalexin 500 mg oral capsu le Dose : 500 mg = 1 cap(s), Oral, q12h, # 20 cap(s), 0 Refill(s), 03/11/23 12:20:00 PM EST, 133 Start Date: 03/05/23 Stop Date: 03/11/23 Status: Ordered Start: 02-24-2023 End: 03-06-2023 take 1 capsule by mouth twice daily Keflex use cephalexin Dose : 500 mg =, Oral, BID, X 10 day(s), # 20 cap(s), 0 Refill(s), 03/06/23 4:56:00 PM EST, 133 Start Date: 02/24/23 Stop Date: 03/06/23 Status: Ordered Start: 01-23-2023 End: 01-30-2023 cephalexin 500 mg oral capsu le Dose : 500 mg = 1 cap(s), Oral, QID, X 7 day(s), # 28 cap(s), 0 Refill(s), 01/30/23 5:00:00 PM EST, 129.4 Start Date: 01/23/23 Stop Date: 01/30/23 Status: Ordered Start: 06-09-2021 End: 06-16-2021 cephalexin 500 mg oral capsu le Dose : 500 mg = 1 cap(s), Oral, TID, 0 Refill(s), 132.7 Start Date: 06/09/21 Stop Date: 06/16/21 Status: Ordered 30 actuat fluticasone furoate 0.1 mg/actuat / umeclidinium 0.0625 mg/actuat / vilanterol 0.025 mg/actuat dry powder inhaler (20 sources) Anticholinergic, Corticosteroid, beta2-Adrenergic Agonist Start: 11-17-2020 take 1 puff(s) by mouth once daily TRELEGY ELLIPTA 100-62.5-25 mcg INHALE 1 PUFF DAILY with good oral care 11/17/2020 Active Comment on above: INHALE 1 PUFF DAILY with good oral care 14 actuat fluticasone furoate 0.1 mg/actuat / vilanterol 0.025 mg/actuat dry powder inhaler (1 source) Corticosteroid, beta2-Adrenergic Agonist take 1 puff(s) by inhalation once daily fluticasone-vilant amaris (BREO ELLIPTA) 100-25 MCG/INH AEPB inhaler Inhale 1 puff into the lungs daily 0 Active 1.5 ml fremanezumab-vfrm 150 mg/ml auto-injector (14 sources) inject 225 mg by subcutaneous injection every month fremanezumab-vfrm (AJOVY AUTOINJECTOR) 225 mg/1.5 mL auto-injector Inject 225 mg subcutaneously once every month. Do not shake. Active Comment on above: Inject 225 mg subcut aneously once every month. Do not shake. Fremanezumab-vfrm 225 MG/1.5ML SOAJ (1 source) Fremanezumab-vfr m 225 MG/1.5ML SOAJ Inject 225 mg into the skin every 30 days 0 Active furosemide 40 mg oral tablet (1 source) Loop Diuretic take 1 tablet by mouth once daily furosemide (LASIX) 40 MG tablet Take 40 mg by mouth daily 0 Active gabapentin 100 mg oral capsule (20 sources) Anti-epileptic Agent Start: 09-21-2021 gabapentin 100 mg oral capsule Dose : 100 mg = 1 cap(s), Oral, TID, TAKE 1 CAPSULE BY MOUTH THREE TIMES DAILY Start Date: 09/21/21 Status: Ordered 1 ml galcanezumab-gnlm 120 mg/ml auto-injector (20 sources) Start: 11-05-2021 inject 120 mg by subcutaneous injection every month Emgality Prefilled Pen 120 mg/mL subcutaneous solution Inject 120 mg every month by subcutaneous route. Start Date: 11/05/21 Status: Ordered guaiFENesin 20 mg/ml oral solution (20 sources) Start: 04-17-2022 take 400 mg by mouth every four hours as needed guaiFENesin (MUCINEX FAST-MAX CHEST-CONGEST) 100 mg/5 mL syrup Take 20 mL by mouth every 4 hours as needed. 120 mL 04/17/2022 Active Start: 02-25-2022 End: 04-17-2022 take 1 tablet by mouth every twelve hours guaiFENesin (MUCINEX) 600 mg 12 hr tablet Take 1-2 tablets by mouth twice daily. 14 tablet 0 02/25/2022 04/17/2022 Discontinued (Course of therapy completed) Comment on above: Take 1-2 tablets by mouth twice daily. Take 20 mL by mouth every 4 hours as needed. hydrocortisone 10 mg/ml / neomycin 3.5 mg/ml / polymyxin b [id number] unt/ml otic suspension (1 source) Aminoglycoside Antibacterial, Polymyxin-class Antibacterial, Corticosteroid Start: 11-14-19 End: 11-21-19 hzqfrjsp-iejsgmril-t ydrocortisone (CORTISPORIN) 3.5-10,000-1 mg/mL-unit/mL-% otic suspension Use 3 Drops in the right ear four times daily for 7 days. 10 mL 0 11/13/2021 11/20/2021 Active Comment on above: Use 3 Drops in the r ight ear four times daily for 7 days. hydrOXYzine pamoate 25 mg oral capsule (5 sources) Antihistamine Start: 08-22-19 End: 08-29-19 take 1 tablet by mouth three times daily Atarax use hydrOXYzine hydrochloride Dose : 25 mg =, Oral, TID, X 7 day(s), # 20 tab(s), 0 Refill(s), 08/29/23 11:44:00 AM EDT Start Date: 08/22/23 Stop Date: 08/29/23 Status: Ordered Start: 04-10-2021 hydrOXYzine pa moate 25 mg oral capsule Dose : 25 mg = 1 cap(s), Oral, TID, PRN as needed for anxiety, # 270 cap(s), 1 Refill(s), Pharmacy: [id number], 165.1, cm, 04/02/21 10:50:00 EST, Height, kg, 04/02/21 10:50:00 EST, Dosing Weight Start Date: 04/10/21 Status: Ordered take 1 tablet by norman th three times daily as needed for anxiety hydrOXYzine (ATARAX) 25 MG tablet Take 25 mg by mouth 3 times daily as needed for Anxiety 0 Active levothyroxine sodium 0.1 mg oral tablet (20 sources) l-Thyroxine Start: 2023 levothyroxine 100 mcg (0.1 mg) oral tablet Dose : 100 mcg = 1 tab(s), Oral, qDay, # 30 tab(s), 0 Refill(s) Start Date: 07/31/23 Status: Ordered Start: 04-29-2023 levothyroxine 200 mcg (0.2 mg) oral tablet Dose : 200 mcg = 1 tab(s), Oral, qDay, # 30 tab(s), 0 Refill(s) Start Date: 04/29/23 Status: Ordered Start: 02-20-2023 End: 03-22-2023 levothyroxine 200 mcg (0.2 m g) oral tablet Dose : 200 mcg = 1 tab(s), Oral, qDay, # 30 tab(s), 0 Refill(s) Start Date: 02/20/23 Stop Date: 03/22/23 Status: Ordered Start: 06-09-2021 levothyroxine 175 mcg (0.175 mg) oral tablet Dose : 175 mcg = 1 tab(s), Oral, qDayAC, 0 Refill(s) Start Date: 06/09/21 Status: Ordered Start: 02-16-2011 End: 04-17-2022 levothyroxine INTRAVEN. inje ction Reconstitute 500 mcg vial with 2 ml normal saline. Inject SQ 1 ml (250mcg) every 3 days 11 Each 11 02/16/2011 04/17/2022 Discontinued (Course of therapy completed) Start: 10-19-2010 levothyroxine (SYNTHROID) 300 mcg tablet Take by mouth. Not taking 120 tablet 11 10/19/2010 Active take 1 tablet by norman th once daily levothyroxine (SYNTHROID) 200 MCG tablet Take 200 mcg by mouth Daily 0 Active Comment on above: Take by mouth. Not t aking Reconstitute 500 mcg vial with 2 ml normal saline. Inject SQ 1 ml (250mcg) every 3 days loperamide hydrochloride 2 mg oral tablet (2 sources) Opioid Agonist Start: 4 End: 4 take 1 tablet by mouth once as needed, then take 1 tablet by mouth every four hours as needed Imodium A-D 2 mg oral tablet Dose : 2 mg = 1 tab(s), Oral, q4h, PRN for loose stools, X 7 day(s), # 24 tab(s), 0 Refill(s), 03/07/23 12:48:00 PM EST Start Date: 02/28/23 Stop Date: 03/07/23 Status: Ordered loratadine 10 mg oral tablet (3 sources) Start: 2 End: 2 take 1 tablet by mouth once daily loratadine (CLARITIN) 10 mg tablet Take 1 tablet by mouth once daily for 7 days. 7 tablet 0 11/13/2021 11/20/2021 Active take 1 capsule by mouth once galilea ly loratadine (CLARITIN) 10 MG capsule Take 10 mg by mouth daily 0 Active Comment on above: Take 1 tablet by norman th once daily for 7 days. Take 1 tablet by norman th once daily. LORazepam 1 mg oral tablet (4 sources) Benzodiazepine Start: 01-10-2023 End: 01-12-2023 Ativan 1 mg oral tablet Dose : 1 mg = 1 tab(s), PO, BID, PRN anxiety, X 2 day(s), # 4 tab(s), 0 Refill(s), 01/12/23 11:11:00 AM EST, Anxiety attack, 129.4 Start Date: 01/10/23 Stop Date: 01/12/23 Status: Ordered Start: 04-02-2021 LORazepam 2 mg oral tablet Dose : 2 mg = 1 tab(s), Oral, qDay, 0 Refill(s), 145.45 Start Date: 04/02/21 Status: Ordered magnesium oxide 200 mg oral tablet (14 sources) Start: 01-18-2023 take 1 tablet by mouth once daily at bedtime magnesium oxide 200 mg magnesium tab Indications: Leg cramps Take 1 tablet by mouth daily at bedtime. 15 tablet 01/18/2023 Active take 1 tablet by mouth once dhruv y Magnesium Oxide 500 MG CAPS Take 1 tablet by mouth daily 0 Active Comment on above: Take 1 tablet by norman th daily at bedtime. meloxicam 15 mg oral tablet (2 sources) Nonsteroidal Anti-inflammatory Drug Start: 06-09-2021 meloxicam 15 mg oral tablet Dose : 15 mg = 1 tab(s), Oral, qDay, # 30 tab(s), 0 Refill(s) Start Date: 06/09/21 Status: Ordered take 1 tablet by mouth once dhruv y meloxicam (MOBIC) 15 MG tablet Take 15 mg by mouth daily 0 Active methylPREDNISolone 4 mg oral tablet (1 source) Corticosteroid Start: 04-02-2020 methylPREDNISolone (MEDROL DOSEPACK) 4 MG tablet Take 4 mg by mouth See Admin Instructions Take by mouth. 0 04/02/2020 Active metoclopramide 5 mg oral tablet (1 source) Dopamine-2 Receptor Antagonist Start: 12-20-2021 End: 12-27-2021 metoclopramide 5 mg oral tablet Dose : 5 mg = 1 tab(s), Oral, QID, X 7 day(s), # 28 tab(s), 0 Refill(s), 12/27/21 18:13:00 EDT Start Date: 12/20/21 Stop Date: 12/27/21 Status: Ordered mupirocin 0.02 mg/mg topical ointment (20 sources) RNA Synthetase Inhibitor Antibacterial Start: 12-20-2023 mupirocin (BACTROBAN) 2 % ointment Indications: Skin irritation Apply 1 application to affected area two times a day. 22 g 12/20/2023 Active Start: 03-09-2023 mupirocin 2% t opical ointment USE 1 Application two times daily DIRECTED Start Date: 03/09/23 Status: Ordered Start: 11-16-2022 End: 11-23-2022 mupirocin (BACTROBAN) 2 % oi ntment Apply to affected area three times daily for 7 days. 22 g 0 11/16/2022 11/23/2022 Active Comment on above: Apply to affected ar ea three times daily for 7 days. nitrofurantoin, macrocrystals 25 mg / nitrofurantoin, monohydrate 75 mg oral capsule (1 source) Nitrofuran Antibacterial Start: 023 End: 023 take 1 capsule by mouth twice daily nitrofurantoin monohydrate and macrocrystal (MACROBID) 100 mg capsule Take 1 capsule by mouth two times a day for 5 days. 10 capsule 0 12/15/2022 12/20/2022 Active Comment on above: Take 1 capsule by [facility] two times a day for 5 days. nortriptyline 50 mg oral capsule (20 sources) Tricyclic Antidepressant Start: 022 nortriptyline 50 mg oral capsule Dose : 50 mg = 1 cap(s), Oral, qHS, 0 Refill(s) Start Date: 06/09/21 Status: Ordered nystatin 100 unt/mg topical powder (19 sources) Polyene Antifungal Start: 024 nystatin (MYCOSTATIN) powder Indications: Fungal infection of skin Apply 1 application to affected area three times a day. 60 g 11/24/2023 Active Start: 11-16-2022 End: 06-20-2023 nystatin (MYCOSTATIN) powder Indications: Fungal infection of skin Apply 1 application to affected area three times a day. 60 g 11/24/2023 Active Comment on above: Apply 1 application to affected area three times daily. ocular lubricant ophthalmic solution (1 source) Start: ocular lubricant ophthalmic solution Dose = 1 drop(s), Eyes, both, BID, PRN for dry eyes, # 10 mL, 0 Refill(s) Start Date: 11/13/23 Status: Ordered omeprazole 40 mg delayed release oral capsule (4 sources) Proton Pump Inhibitor Start: 2 End: 2 take 1 capsule by mouth once daily omeprazole 40 mg oral delayed release capsule TAKE 1 CAPSULE BY MOUTH EVERY DAY Start Date: 12/08/21 Status: Ordered take 1 capsule by mouth once galilea ly omeprazole (PRILOSEC) 40 MG delayed release capsule Take 40 mg by mouth daily 0 Active ondansetron 8 mg oral tablet (20 sources) Serotonin-3 Receptor Antagonist Start: 11-27-2023 End: 11-29-2023 take 1 tablet by mouth twice daily as needed for nausea and vomiting Zofran ODT use ondansetron oral tablet, disintegrating Dose : 8 mg =, Oral, BID, As needed for nausea and vomiting, # 4 tab(s), 0 Refill(s) Start Date: 11/27/23 Stop Date: 11/29/23 Status: Ordered Start: 02-17-2023 Zofran 4 mg or al tablet Dose : 4 mg = 1 tab(s), Oral, q6h, PRN Nausea/Vomiting, # 20 tab(s), 0 Refill(s) Start Date: 02/17/23 Status: Ordered Start: 08-17-2022 End: 08-22-2022 take 1 tablet by mouth every eight hours Zofran ODT use ondansetron oral tablet, disintegrating Dose : 4 mg =, Oral, q8h, # 15 tab(s), 0 Refill(s) Start Date: 08/17/22 Stop Date: 08/22/22 Status: Ordered Start: 08-17-2022 End: 03-31-2023 take 1 tablet by mouth every six hours as needed for nausea and nausea ondansetron orally disintegrating (ZOFRAN ODT) 4 mg disintegrating tablet Indications: Nausea Take 1 tablet by mouth every 6 hours as needed for nausea/vomiting. 12 tablet 03/31/2023 Active Start: 05-04-2022 End: 05-04-2022 take 1 tablet by mouth every eight hours as needed ondansetron orally disintegrating (ZOFRAN ODT) 4 mg disintegrating tablet Take 1 tablet by mouth every 8 hours as needed. 12 tablet 0 05/04/2022 05/04/2022 Discontinued Start: 12-08-2021 ondansetron 4 mg oral tablet, disintegrating 0 Refill(s) Start Date: 12/08/21 Status: Ordered Start: 04-02-2021 ondansetron 4 mg oral tablet, disintegrating Dose : 4 mg = 1 tab(s), Oral, q8h, PRN as needed for nausea/vomiting, 0 Refill(s) Start Date: 04/02/21 Status: Ordered Comment on above: Take 1 tablet by norman th every 8 hours as needed. Take 1 tablet by norman th every 6 hours as needed for nausea/vomiting. [id number] oral powder for reconstitution (13 sources) Start: take 17 doses by mouth once daily [id number] oral powder for reconstitution Dose : 17 gram(s) =, Oral, Daily, # 510 gram(s), 0 Refill(s) Start Date: 04/29/23 Status: Ordered phenazopyridine hydrochloride 100 mg oral tablet (1 source) Start: End: Pyridium 100 mg oral tablet Dose : 100 mg = 1 tab(s), Oral, TID, X 3 day(s), # 9 tab(s), 0 Refill(s), 09/26/22 12:53:00 AM EDT Start Date: 09/23/22 Stop Date: 09/26/22 Status: Ordered polyethylene glycol 3350 51001 mg powder for oral solution (3 sources) Osmotic Laxative Start: End: take 17 doses by mouth twice daily as needed for constipation MiraLax oral powder for reconstitution Dose : 17 gram(s) =, Oral, BID, PRN Constipation, X 14 day(s), # 500 gram(s), 0 Refill(s), 09/19/23 8:58:00 PM EDT Start Date: 09/05/23 Stop Date: 09/19/23 Status: Ordered Start: 08-16-2023 End: 08-21-2023 take 17 doses by mouth twice daily as needed for constipation MiraLax oral powder for reconstitution Dose : 17 gram(s) =, Oral, BID, PRN Constipation, X 5 day(s), # 500 gram(s), 0 Refill(s), 08/21/23 6:52:00 PM EDT Start Date: 08/16/23 Stop Date: 08/21/23 Status: Ordered Start: 04-03-2023 End: 04-17-2023 take 17 doses by mouth once daily MiraLax oral powder for reconstitution Dose : 17 gram(s) =, Oral, qDay, dissolve in water before taking, X 14 day(s), # 238 gram(s), 0 Refill(s), 04/17/23 6:47:00 PM EST Start Date: 04/03/23 Stop Date: 04/17/23 Status: Ordered potassium chloride 10 meq extended release oral capsule (14 sources) Start: 04-29-2023 potassium chlo ride 10 mEq oral capsule, extended release 0 Refill(s) Start Date: 04/29/23 Status: Ordered Start: 12-20-2021 End: 12-23-2021 Potassium Chloride (Eqv-Klor -Con M20) 20 mEq oral tablet, extended release Dose : 20 mEq = 1 tab(s), Oral, BID, # 6 tab(s), 0 Refill(s) Start Date: 12/20/21 Stop Date: 12/23/21 Status: Ordered predniSONE 20 mg oral tablet (4 sources) Start: 12-20-2023 End: 12-24-2023 take 2 tablets by mouth once daily at mealtime predniSONE (DELTASONE) 20 mg tablet Indications: Acute gout of right foot, unspecified cause Take 2 tablets by mouth once daily for 4 days. Take daily with food. 8 tablet 12/20/2023 12/24/2023 Active Start: 07-28-2022 End: 08-02-2022 take 2 tablets by mouth once daily predniSONE (DELTASONE) 20 mg tablet Take 2 tablets by mouth once daily for 5 days. 10 tablet 0 07/28/2022 08/02/2022 Active Start: 02-25-2022 End: 03-02-2022 take 2 tablets by mouth once daily predniSONE (DELTASONE) 20 mg tablet Take 2 tablets by mouth once daily for 5 days. 10 tablet 0 02/25/2022 03/02/2022 Comment on above: Take 2 tablets by mo ut once daily for 5 days. progesterone 200 mg oral capsule (20 sources) Progesterone Start: 02-11-20 progesterone micronized (PROMETRIUM) 200 mg capsule 02/10/2023 Active rimegepant 75 mg disintegrating oral tablet (20 sources) Start: 09-16-19 take 1 tablet by mouth every twenty-four hours Nurtec ODT 75 mg oral tablet, disintegrating Dose : 75 mg = 1 tab(s), Oral, q24h, PRN as needed for migraine headache, not to exceed 75 mg in 24 hours, # 8 tab(s), 0 Refill(s) Start Date: 09/15/20 Status: Ordered rosuvastatin calcium 40 mg oral tablet (4 sources) HMG-CoA Reductase Inhibitor Start: 05-19-19 End: 02-13-20 Crestor 40 mg oral tablet Dose : 40 mg = 1 tab(s), Oral, qDay, # 30 tab(s), 1 Refill(s), Pharmacy: [facility] #30, Hyperlipidemia LDL goal Start Date: 11/19/21 Stop Date: 01/18/22 Status: Ordered take 1 tablet by norman once daily in the evening rosuvastatin (CRESTOR) 40 MG tablet Take 40 mg by mouth every evening 0 Active tiZANidine 4 mg oral capsule (20 sources) Central alpha-2 Adrenergic Agonist Start: 06-01-2021 tiZANidine 4 mg oral capsule Dose : 4 mg = 1 cap(s), Oral, BID, # 30 cap(s), 0 Refill(s) Start Date: 06/01/21 Status: Ordered traMADol hydrochloride 50 mg oral tablet (20 sources) Opioid Agonist Start: 04-29-2023 traMADol 50 mg oral tablet Dose : 50 mg = 1 tab(s), Oral, q12h, PRN for pain, # 12 tab(s), 0 Refill(s), 134.7 Start Date: 04/29/23 Status: Ordered Start: 06-01-2021 End: 08-16-2022 traMADol 50 mg oral tablet D ose : 50 mg = 1 tab(s), Oral, BID, # 12 tab(s), 0 Refill(s), 132.7 Start Date: 06/01/21 Status: Ordered ubrogepant 100 mg oral tablet (20 sources) Start: 06-01-2021 Ubrelvy 100 mg oral tablet Dose : 100 mg = 1 tab(s), Oral, Once, PRN as needed for migraine headache, may repeat dose in 2 hours if needed. Max dose of 2 tabs in 24 hrs, # 16 tab(s), 0 Refill(s) Start Date: 06/01/21 Status: Ordered Ubrogepant 100 MG TABS (1 source) take 1 tablet by mouth once daily Ubrogepant 100 MG TABS Take 100 mg by mouth daily 0 Active vitamin b 12 1 mg oral tablet (1 source) Vitamin B12 take 1 tablet by mouth once daily vitamin B-12 (CYANOCOBALAMIN) 1000 MCG tablet Take 1,000 mcg by mouth daily 0 Active Completed/Discontinued Medications Medication Drug Class(es) Dates Sig (Normalized) Sig (Original) amLODIPine 10 mg oral tablet (20 sources) Dihydropyridine Calcium Channel Shad Start: 05-20-2022 End: 07-19-2022 amLODIPine 10 mg oral tablet Dose : 10 mg = 1 tab(s), Oral, qDay, # 30 tab(s), 1 Refill(s), Pharmacy: [facility] #30, 162, cm, 05/20/22 15:06:00 EDT, Height, kg, 05/20/22 15:06:00 EDT, Dosing Weight Start Date: 05/20/22 Stop Date: 07/19/22 Status: Ordered Start: 05-18-2021 End: 02-12-2022 amLODIPine 5 mg oral tablet Dose : 5 mg = 1 tab(s), Oral, qDay, Managed by Cardiology, # 30 tab(s), 1 Refill(s), Pharmacy: [facility] #30, HTN, goal below 140/90, 162, cm, 11/05/21 9:45:00 EDT, Height, kg, 11/19/21 14:09:00 EDT, Dosing Weight Start Date: 11/19/21 Stop Date: 01/18/22 Status: Ordered take 1 tablet by norman th once daily amLODIPine (NORVASC) 5 MG tablet Take 5 mg by mouth daily 0 Active apixaban 5 mg oral tablet (20 sources) Factor Xa Inhibitor Start: 04-29-2023 Eliquis 5 mg oral tablet Dose : 5 mg = 1 tab(s), Oral, BID, 0 Refill(s), 134.7 Start Date: 04/29/23 Status: Ordered Start: 08-17-2022 End: 09-16-2022 Eliquis Starter Pack for Jose Daniel atment of DVT and PE 5 mg oral tablet [10mg BID x 7days-then 5mg BID], Oral, BID, # 74 tab(s), 0 Refill(s), DVT Treatment Dosing, 126 Start Date: 08/17/22 Stop Date: 09/16/22 Status: Ordered Comment on above: Take 5 mg by mouth o nce daily. cholecalciferol 1.25 mg oral capsule (15 sources) Vitamin D Start: 05-20-2022 End: 07-19-2022 cholecalciferol 1250 mcg (50,000 intl units) oral capsule Dose : 50,000 International_Unit = 1 cap(s), Oral, qWeek, # 5 cap(s), 1 Refill(s), Pharmacy: [facility] #30, Vitamin D deficiency, 162, cm, 05/20/22 15:06:00 EDT, Height, kg, 05/20/22 15:06:00 EDT, Dosing Weight Start Date: 05/20/22 Stop Date: 5/22/23 Status: Ordered Start: 11-19-2021 End: 01-18-2022 cholecalciferol 1250 mcg (50 ,000 intl units) oral capsule Dose : 50,000 International_Unit = 1 cap(s), Oral, qWeek, # 5 cap(s), 1 Refill(s), Pharmacy: [facility] #30, Vitamin D deficiency, 162, cm, 11/05/21 9:45:00 EDT, Height, kg, 11/19/21 14:09:00 EDT, Dosing Weight Start Date: 11/19/21 Stop Date: 01/18/22 Status: Ordered Start: 12-15-2020 End: 09-11-2021 cholecalciferol 1250 mcg (50 ,000 intl units) oral capsule Dose : 50,000 International_Unit = 1 cap(s), Oral, qWeek, # 13 cap(s), 2 Refill(s), Pharmacy: [facility] #30, Vitamin D deficiency, 162, cm, 12/15/20 13:32:00 EDT, Height, kg, 12/15/20 13:32:00 EDT, Dosing Weight Start Date: 12/15/20 Stop Date: 09/11/21 Status: Ordered take 1 capsule by [facility] every week Cholecalciferol (VITAMIN D3) 1.25 MG (25274 UT) CAPS Take 1 capsule by mouth once a week 0 Active citalopram 40 mg oral tablet (20 sources) Serotonin Reuptake Inhibitor Start: 05-20-2022 End: 07-19-2022 CeleXA 40 mg oral tablet Dose : 40 mg = 1 tab(s), Oral, qDay, # 30 tab(s), 1 Refill(s), Pharmacy: [facility] #30, Anxiety and depression, 162, cm, 05/20/22 15:06:00 EDT, Height, kg, 05/20/22 15:06:00 EDT, Dosing Weight Start Date: 05/20/22 Stop Date: 07/19/22 Status: Ordered Start: 11-19-2021 End: 01-18-2022 CeleXA 40 mg oral tablet Dos e : 40 mg = 1 tab(s), Oral, qDay, # 30 tab(s), 1 Refill(s), Pharmacy: [facility] #30, Anxiety and depression, 162, cm, 11/05/21 9:45:00 EDT, Height, kg, 11/19/21 14:09:00 EDT, Dosing Weight Start Date: 11/19/21 Stop Date: 01/18/22 Status: Ordered Start: 12-15-2020 End: 09-11-2021 CeleXA 40 mg oral tablet Dos e : 40 mg = 1 tab(s), Oral, qDay, # 90 tab(s), 2 Refill(s), Pharmacy: [facility] #30, Anxiety and depression, 162, cm, 12/15/20 13:32:00 EDT, Height, kg, 12/15/20 13:32:00 EDT, Dosing Weight Start Date: 12/15/20 Stop Date: 09/11/21 Status: Ordered take 1 tablet by norman th once daily citalopram (CELEXA) 40 MG tablet Take 40 mg by mouth daily 0 Active COMPOUNDED PRESCRIPTION (5 sources) Start: 07-13-2012 End: 04-17-2022 inject 1 mL by subcutaneous injection every week COMPOUNDED PRESCRIPTION Inject subcutaneously. Levothyroxine 100 mcg injection. Reconstitute 100 mcg vial with 1 ml normal saline. Inject 1 ml 5 days per week 25 Vial 3 07/13/2012 04/17/2022 Discontinued (Course of therapy completed) Start: 07-13-2012 inject 1 mL by subcu taneous injection every week COMPOUNDED PRESCRIPTION Inject subcutaneously. Levothyroxine 100 mcg injection. Reconstitute 100 mcg vial with 1 ml normal saline. Inject 1 ml 5 days per week 25 Vial 3 07/13/2012 Active Comment on above: Inject subcutaneousl y. Levothyroxine 100 mcg injection. Reconstitute 100 mcg vial with 1 ml normal saline. Inject 1 ml 5 days per week cyclobenzaprine hydrochloride 5 mg oral tablet (14 sources) Muscle Relaxant Start: 4 End: cyclobenzaprine 5 mg oral tablet Dose : 5 mg = 1 tab(s), Oral, TID, # 30 tab(s), 0 Refill(s) Start Date: 04/29/23 Stop Date: 05/09/23 Status: Ordered Start: 04-17-2022 End: 04-20-2022 take 1 tablet by mouth every eight hours as needed cyclobenzaprine (FLEXERIL) 10 mg tablet Take 1 tablet by mouth three times daily as needed for muscle spasm for up to 3 days. 9 tablet 0 04/17/2022 04/20/2022 Active Comment on above: Take 1 tablet by norman th three times daily as needed for muscle spasm for up to 3 days. dicyclomine hydrochloride 20 mg oral tablet (9 sources) Anticholinergic Start: 07-19-19 End: 07-22-19 dicyclomine 20 mg oral tablet Dose : 20 mg = 1 tab(s), Oral, QID, PRN As needed for abdominal discomfort, # 12 tab(s), 0 Refill(s) Start Date: 07/19/23 Stop Date: 07/22/23 Status: Ordered Docu Soft 100 mg oral capsule (3 sources) Start: 09-05-19 End: 09-19-19 Docu Soft 100 mg oral capsule Dose : 100 mg = 1 cap(s), Oral, BID, PRN for constipation, # 28 cap(s), 0 Refill(s) Start Date: 09/05/23 Stop Date: 09/19/23 Status: Ordered docusate calcium 240 mg oral capsule (5 sources) Start: 08-16-19 End: 08-26-19 docusate calcium 240 mg oral capsule Dose : 240 mg = 1 cap(s), Oral, Daily, PRN for constipation, # 30 cap(s), 0 Refill(s) Start Date: 08/16/23 Stop Date: 08/26/23 Status: Ordered doxycycline hyclate 100 mg oral tablet (1 source) Tetracycline-class Drug Start: 05-05-19 End: 05-05-19 take 1 tablet by mouth twice daily doxycycline (VIBRA-TABS) 100 mg tablet Take 1 tablet by mouth twice daily for 7 days. 14 tablet 0 05/04/2022 05/04/2022 Discontinued Comment on above: Take 1 tablet by norman th twice daily for 7 days. empagliflozin 25 mg oral tablet (15 sources) Sodium-Glucose Cotransporter 2 Inhibitor Start: 05-21-19 End: 07-20-19 Jardiance 25 mg oral tablet Dose : 25 mg = 1 tab(s), Oral, qAM, # 30 tab(s), 1 Refill(s), Pharmacy: [facility]30, DM type 2, goal HbA1c Start Date: 05/20/22 Stop Date: 07/19/22 Status: Ordered Start: 11-19-2021 End: 01-18-2022 Jardiance 25 mg oral tablet Dose : 25 mg = 1 tab(s), Oral, qAM, # 30 tab(s), 1 Refill(s), Pharmacy: [facility] #30, DM type 2, goal HbA1c Start Date: 11/19/21 Stop Date: 01/18/22 Status: Ordered Start: 12-15-2020 End: 09-11-2021 Jardiance 25 mg oral tablet Dose : 25 mg = 1 tab(s), Oral, qAM, # 90 tab(s), 2 Refill(s), Pharmacy: [facility]30, DM type 2, goal HbA1c Start Date: 12/15/20 Stop Date: 09/11/21 Status: Ordered take 1 tablet by norman once daily empagliflozin (JARDIANCE) 25 MG tablet Take 25 mg by mouth daily 0 Active febuxostat 40 mg oral tablet (14 sources) Xanthine Oxidase Inhibitor Start: 05-20-2022 End: 11-16-2022 Uloric 40 mg oral tablet Dose : 40 mg = 1 tab(s), Oral, Daily, # 30 tab(s), 5 Refill(s), Pharmacy: [facility]30, Gout, 162, cm, 05/20/22 15:06:00 EDT, Height, kg, 05/20/22 15:06:00 EDT, Dosing Weight Start Date: 05/20/22 Stop Date: 11/16/22 Status: Ordered Start: 05-18-2021 End: 12-14-2021 Uloric 40 mg oral tablet Dos e : 40 mg = 1 tab(s), Oral, Daily, # 30 tab(s), 6 Refill(s), Pharmacy: [facility]30, Gout, 162, cm, 05/18/21 10:22:00 EDT, Height, kg, 05/18/21 10:22:00 EDT, Dosing Weight Start Date: 05/18/21 Stop Date: 12/14/21 Status: Ordered ferrous sulfate 325 mg delay ed release oral tablet (15 sources) Start: 05-20-2022 End: 11-16-2022 ferrous sulfate 325 mg (65 m g elemental iron) oral delayed release tablet Dose : 325 mg = 1 tab(s), Oral, qDay, # 90 tab(s), 1 Refill(s), Pharmacy: [facility]30, Iron deficiency anemia, unspecified, 162, cm, 05/20/22 15:06:00 EDT, Height, kg, 05/20/22 15:06:00 EDT, Dosing Weight Start Date: 05/20/22 Stop Date: 11/16/22 Status: Ordered Start: 05-18-2021 End: 11-14-2021 ferrous sulfate 325 mg (65 m g elemental iron) oral delayed release tablet Dose : 325 mg = 1 tab(s), Oral, qDay, # 90 tab(s), 1 Refill(s), Pharmacy: [facility]30, Iron deficiency anemia, unspecified, 162, cm, 05/18/21 10:22:00 EDT, Height, kg, 05/18/21 10:22:00 EDT, Dosing Weight Start Date: 05/18/21 Stop Date: 11/14/21 Status: Ordered take 1 tablet by norman th once daily at breakfast ferrous sulfate (IRON 325) 325 (65 Fe) MG tablet Take 325 mg by mouth daily (with breakfast) 0 Active fluticasone propionate 0.05 mg/actuat metered dose nasal spray (4 sources) Corticosteroid Start: 11-13-2021 End: 04-17-2022 take 2 spray(s) by mouth once daily fluticasone (FLONASE) 50 mcg/actuation nasal spray Use 2 Sprays in each nostril once daily. Rinse mouth after use. 1 Each 0 11/13/2021 04/17/2022 Discontinued (Course of therapy completed) Comment on above: Use 2 Sprays in each nostril once daily. Rinse mouth after use. hydroCHLOROthiazide 12.5 mg oral capsule (5 sources) Thiazide Diuretic Start: 06-26-2009 End: 04-17-2022 HYDROCHLOROTHIAZIDE 12.5 MG CAP Take one(1) tablet daily. 0 06/26/2009 04/17/2022 Discontinued Comment on above: Take one(1) tablet d aily. Insulin Syringe-Needle U-100 (BD ULTRAFINE INSULIN) 1 mL 31 x 5/16 syrg (5 sources) Start: 12-17-2013 End: 04-17-2022 Insulin Syringe-Needle U-100 (BD ULTRAFINE INSULIN) 1 mL 31 x 5/16 syrg use twice daily with injections five days per week 244.9 120 Syringe 1 12/17/2013 04/17/2022 Discontinued (Course of therapy completed) Start: 12-17-2013 Insulin Syring e-Needle U-100 (BD ULTRAFINE INSULIN) 1 mL 31 x 5/16 syrg use twice daily with injections five days per week 244.9 120 Syringe 1 12/17/2013 Active Comment on above: use twice daily with injections five days per week 244.9 2 ml ketorolac tromethamine 30 mg/ml injection (3 sources) Nonsteroidal Anti-inflammatory Drug, Cyclooxygenase Inhibitor Start: 03-31-2023 End: 03-31-2023 keTORolac 60 mg injection (Toradol) Start: 01-17-2023 End: 01-17-2023 keTORolac 60 mg injection (T oradol) Start: 08-17-2022 End: 08-17-2022 keTORolac 60 mg injection (T oradol) megestrol acetate 40 mg oral tablet (20 sources) Progestin Start: 03-17-2020 End: 06-15-2020 megestrol 40 mg oral tablet Dose : 40 mg = 1 tab(s), Oral, Daily, Managed by OB-CHIEF COMPLIANCE OFFICER, # 90 tab(s), 0 Refill(s), other reason (Rx), Vaginal bleeding Start Date: 03/17/20 Stop Date: 06/15/20 Status: Ordered Comment on above: Take 40 mg by mouth once daily. 24 hr metoprolol succinate 100 mg extended release oral tablet (5 sources) beta-Adrenergic Shad Start: 06-26-2009 End: 04-17-2022 METOPROLOL SUCCINATE ER 100 MG 24 HR TAB Take one(1) tablet daily. 0 06/26/2009 04/17/2022 Discontinued (Course of therapy completed) Comment on above: Take one(1) tablet d aily. Needle, Disp, 25 G 25 x 1 ndle (5 sources) Start: 12-17-2013 End: 04-17-2022 Needle, Disp, 25 G 25 x 1 ndle use as direct to draw up medication five days per week 244.9 60 Each 1 12/17/2013 04/17/2022 Discontinued (Course of therapy completed) Start: 12-17-2013 Needle, Disp, 25 G 25 x 1 ndle use as direct to draw up medication five days per week 244.9 60 Each 1 12/17/2013 Active Comment on above: use as direct to misty w up medication five days per week 244.9 promethazine hydrochloride 25 mg oral tablet (2 sources) Phenothiazine Start: 09-21-2021 End: 09-26-2021 promethazine 25 mg oral tablet Dose : 25 mg = 1 tab(s), Oral, q6hr, PRN as needed for motion sickness, # 20 tab(s), 0 Refill(s), Pharmacy: [facility]30, 162, cm, 09/21/21 16:10:00 EDT, Height Start Date: 09/21/21 Stop Date: 09/26/21 Status: Ordered take 1 tablet by norman th every six hours as needed for nausea promethazine (PHENERGAN) 25 MG tablet Ta ke 25 mg by mouth every 6 hours as needed for Nausea 0 Active Sodium Chloride (5 sources) Start: 09-20-2013 End: 04-17-2022 Sodium Chloride 0.9 % soln R econstitute 1 ml with 100 mcg of injectable Levothyoxine five days per week 50 mL 0 09/20/2013 04/17/2022 Discontinued (Course of therapy completed) Start: 09-20-2013 Sodium Chlorid e 0.9 % soln Reconstitute 1 ml with 100 mcg of injectable Levothyoxine five days per week 50 mL 0 09/20/2013 Active Comment on above: Reconstitute 1 ml wi th 100 mcg of injectable Levothyoxine five days per week Syringe, Disposable, 3 mL syrg (5 sources) Start: 12-17-2013 End: 04-17-2022 Syringe, Disposable, 3 mL syrg use as direct with medication five days per week 244.9 60 Syringe 1 12/17/2013 04/17/2022 Discontinued (Course of therapy completed) Start: 12-17-2013 Syringe, Dispo sable, 3 mL syrg use as direct with medication five days per week 244.9 60 Syringe 1 12/17/2013 Active Comment on above: use as direct with m edication five days per week 244.9 topiramate 100 mg oral tablet (9 sources) Start: 1 End: 3 take 1 tablet by mouth twice daily topiramate (TOPAMAX) 100 mg tablet Take 100 mg by mouth twice daily. 0 01/11/2021 04/17/2022 Discontinued (Course of therapy completed) Start: 03-17-2020 topiramate 100 mg oral tablet Dose : 100 mg = 1 tab(s), Oral, qDay, Managed by Neurology, # 30 tab(s), 0 Refill(s), other reason (Rx), Migraine Start Date: 03/17/20 Status: Ordered Comment on above: Take 100 mg by mouth twice daily. Trelegy Ellipta 100 mcg-62.5 mcg-25 mcg/inh inhalation powder (20 sources) Start: 1 End: 1 take 1 dose by inhalation once daily Trelegy Ellipta 100 mcg-62.5 mcg-25 mcg/inh inhalation powder Dose = 1 puff(s), Inhalation, qDay, Managed by Pulmonology, # 3 EA, 0 Refill(s), other reason (Rx), Asthma in adult Start Date: 03/17/20 Stop Date: 06/15/20 Status: Ordered valsartan 320 mg oral tablet (20 sources) Angiotensin 2 Receptor Shad Start: 3 End: 3 valsartan 320 mg oral tablet Dose : 320 mg = 1 tab(s), Oral, qDay, # 30 tab(s), 1 Refill(s), Pharmacy: [facility]30, 162, cm, 05/20/22 15:06:00 EDT, Height, kg, 05/20/22 15:06:00 EDT, Dosing Weight Start Date: 05/20/22 Stop Date: 07/19/22 Status: Ordered Start: 12-08-2021 End: 01-07-2022 valsartan 320 mg oral tablet Dose : 320 mg = 1 tab(s), Oral, qDay, # 30 tab(s), 0 Refill(s), Pharmacy: [facility], 161.4, cm, 12/08/21 13:13:00 EDT, Height Start Date: 12/08/21 Stop Date: 01/07/22 Status: Ordered Start: 06-09-2021 take 3 tablets by mo [facility] once daily valsartan 80 mg oral tablet 3 tab, Oral, qDay, # 30 tab(s), 0 Refill(s) Start Date: 06/09/21 Status: Ordered take 1 tablet by norman once daily valsartan (DIOVAN) 80 MG tablet Take 80 mg by mouth daily 0 Active Vitamin C 500 mg oral tablet (14 sources) Start: 05-18-2021 End: 11-14-2021 Vitamin C 500 mg oral tablet Dose : 500 mg = 1 tab(s), Oral, qDay, # 90 tab(s), 1 Refill(s), Pharmacy: [facility], Iron deficiency anemia, unspecified, 162, cm, 05/18/21 10:22:00 EDT, Height, kg, 05/18/21 10:22:00 EDT, Dosing Weight Start Date: 05/18/21 Stop Date: 11/14/21 Status: Ordered Problems Active Problems Problem Classification Problem Date Documented Date Episodic/Chronic Abdominal pain (2 sources) Abdominal pain; Translations: [Unspecified abdominal pain] Onset: 01-24-20 Episodic Anxiety disorders (20 sources) Mixed anxiety and depressive disorder; Translations: [Panic disorder without agoraphobia] Onset: 01-11-20 23 11-25-2018 Chronic Asthma (20 sources) Asthma; Translations: [Exacerbation of asthma] Onset: 03-09-19 24 03-17-2020 Chronic Biliary tract disease (20 sources) Biliary calculus 04-21-2021 Episodic Chronic obstructive pulmonary disease and bronchiectasis (1 source) Bronchitis; Translations: [Bronchitis, not specified as acute or chronic] 11-16-2022 Episodic Conditions associated with dizziness or vertigo (20 sources) Dizziness and giddiness; Translations: [Dizziness and giddiness] Onset: 02-28-20 23 09-23-2021 Episodic Deficiency and other anemia (20 sources) Iron deficiency anemia 07-17-2019 Episodic Deficiency and other anemia (20 sources) Macrocytic anemia 02-16-2022 Episodic Diabetes mellitus without complication (20 sources) Type 2 diabetes mellitus; Translations: [Type 2 diabetes mellitus without complication] Onset: 03-10-19 24 01-28-2020 Chronic Disorders of lipid metabolism (20 sources) Hypercholesterolemia 05-09-2020 Chronic E Codes: Fall (2 sources) Fall; Translations: [Unspecified fall, initial encounter] Episodic Esophageal disorders (20 sources) Gastroesophageal reflux disease 01-28-2020 Chronic Essential hypertension (20 sources) Hypertensive disorder 12-25-2018 Chronic Fluid and electrolyte disorders (1 source) Hypokalemia; Translations: [Hypokalemia] Onset: 12-21-19 Episodic Fracture of lower limb (2 sources) Unspecified fracture of shaft of unspecified fibula, initial encounter for closed fracture; Translations: [Closed fracture of right foot] Onset: 08-14-19 Episodic Gout and other crystal arthropathies (20 sources) Gout; Translations: [Gouty arthritis of right foot] 01-02-2019 Chronic Comment on above: FEET Headache; including migraine (20 sources) Migraine; Translations: [Chronic post-traumatic headache] Onset: 02-18-20 23 03-17-2020 Chronic Headache; including migraine (20 sources) Headache; Translations: [Headache, unspecified headache type] Onset: 02-18-20 Episodic Heart valve disorders (20 sources) Heart murmur 01-02-2019 Episodic Malaise and fatigue (5 sources) Malaise and fatigue; Translations: [Other malaise] Onset: 07-31-19 Episodic Mycoses (1 source) Dermal mycosis; Translations: [Superficial mycosis, unspecified] 11-24-2023 Episodic Nausea and vomiting (5 sources) Nausea, vomiting and diarrhea; Translations: [Nausea with vomiting, unspecified] Onset: 12-21-19 Episodic Nonspecific chest pain (3 sources) Chest pain; Translations: [Chest pain, unspecified] Onset: 01-11-20 23 Episodic Nutritional deficiencies (20 sources) Vitamin D deficiency 07-17-2019 Chronic Nutritional deficiencies (20 sources) Cobalamin deficiency 01-02-2019 Episodic Osteoarthritis (20 sources) Arthritis 11-25-2018 Chronic Other aftercare (1 source) Drug monitoring done; Translations: [Encounter for therapeutic drug level monitoring] Episodic Other aftercare (1 source) Long-term current use of drug therapy; Translations: [Other mcc (current) drug therapy] Episodic Other connective tissue disease (1 source) Cramp in lower limb; Translations: [Cramp and spasm] 01-18-2023 Episodic Other connective tissue disease (2 sources) Pain in right foot; Translations: [Pain in right foot] 05-04-2023 Episodic Other connective tissue disease (1 source) Swelling of right lower limb; Translations: [Other specified soft tissue disorders] 05-13-2023 Episodic Other connective tissue disease (1 source) Pain in hallux; Translations: [Pain in right toe(s)] 03-16-2023 Episodic Other diseases of kidney and ureters (20 sources) Hydronephrosis 05-18-2021 Episodic Comment on above: Renal ultrasound: Impression: 1. Stable bilateral parapelvic cysts Other ear and sense organ disorders (20 sources) Hearing loss of right ear 12-08-2021 Chroni c Other ear and sense organ disorders (1 source) Disorder of external ear; Translations: [Other specified disorders of right external ear] Episodic Other gastrointestinal disorders (20 sources) Celiac disease 11-25-2018 Chronic Other gastrointestinal disorders (20 sources) Constipation 09-23-2021 Episodic Other gastrointestinal disorders (1 source) Diarrhea; Translations: [Diarrhea, unspecified] Onset: 02-28-19 Episodic Other gastrointestinal disorders (1 source) Constipation, unspecified; Translations: [Constipation, unspecified] Onset: 09-05-19 Episodic Other hereditary and degenerative nervous system conditions (20 sources) Restless legs 11-25-2018 Chronic Other inflammatory condition of skin (2 sources) Intertrigo; Translations: [Erythema intertrigo] 11-16-2022 Episodic Other injuries and conditions due to external causes (1 source) Injury of musculoskeletal system; Translations: [Other injury of unspecified body region, initial encounter] Episodic Other injuries and conditions due to external causes (2 sources) Injury of head; Translations: [Unspecified injury of head, initial encounter] Onset: 03-23-19 Episodic Other injuries and conditions due to external causes (1 source) Injury of right leg; Translations: [Unspecified injury of right lower leg, initial encounter] 04-15-2023 Episodic Other injuries and conditions due to external causes (1 source) Injury of left ankle; Translations: [Unspecified injury of left ankle, initial encounter] 08-05-2022 Episodic Other liver diseases (20 sources) Steatosis of liver 04-21-2021 Chronic Other lower respiratory disease (4 sources) Dyspnea; Translations: [Dyspnea, unspecified] Onset: 04-21-19 Episodic Other lower respiratory disease (1 source) Acute lower respiratory tract infection; Translations: [Unspecified acute lower respiratory infection] Onset: 04-20-19 Episodic Other lower respiratory disease (15 sources) Lower respiratory tract infection 04-20-2023 Episodic Other non-traumatic joint disorders (1 source) Ankle joint pain; Translations: [Pain in unspecified ankle and joints of unspecified foot] Onset: 01-24-20 Episodic Other non-traumatic joint disorders (2 sources) Acute ankle pain; Translations: [Pain in right ankle and joints of right foot] 05-04-2023 Episodic Other nutritional; endocrine; and metabolic disorders (20 sources) Morbid obesity 03-06-2020 Chronic Other nutritional; endocrine; and metabolic disorders (1 source) Extreme obesity with alveolar hypoventilation; Translations: [Morbid (severe) obesity with alveolar hypoventilation] Onset: 08-06-19 Chronic Other skin disorders (1 source) Skin lesion; Translations: [Disorder of the skin and subcutaneous tissue, unspecified] 11-16-2022 Episodic Other skin disorders (1 source) Skin irritation ; Translations: [Other skin changes] 12-20-2023 Episodic Other upper respiratory disease (20 sources) Seasonal allergy 03-17-2020 Chronic Other upper respiratory infections (2 sources) Viral upper respiratory tract infection; Translations: [Acute upper respiratory infection, unspecified] Episodic Otitis media and related conditions (1 source) Finding of fluid behind tympanic membrane; Translations: [Unspecified nonsuppurative otitis media, right ear] Episodic Pleurisy; pneumothorax; pulmonary collapse (1 source) Pleurisy; Translations: [Pleurisy] Onset: 08-06-19 Episodic Pulmonary heart disease (1 source) Other pulmonary embolism without acute cor pulmonale; Translations: [Other pulmonary embolism without acute cor pulmonale] Onset: 03-28-19 Episodic Residual codes; unclassified (20 sources) Obstructive sleep apnea of adult 11-25-2018 Chronic Residual codes; unclassified (1 source) Obstructive sleep apnea syndrome; Translations: [Obstructive sleep apnea (adult) (pediatric)] Onset: 03-10-19 Chronic Skin and subcutaneous tissue infections (20 sources) Cellulitis of skin; Translations: [Cellulitis, unspecified] Onset: 03-10-19 Episodic Spondylosis; intervertebral disc disorders; other back problems (20 sources) Backache; Translations: [Neck pain] Onset: 04-29-19 24 03-17-2020 Episodic Thyroid disorders (20 sources) Hypothyroidism; Translations: [Thyroid eye disease] Onset: 12-21-1901-18-2019 Chronic Unclassified (20 sources) Non-smoker 11-19-2021 Urinary tract infections (2 sources) Urinary tract infectious disease; Translations: [Urinary tract infection, site not specified] Onset: 01-24-20 Episodic Past or Other Problems Problem Classification Problem Date Documented Da te Episodic/Chronic Other connective tissue disease (1 source) Pain in right foot; Translations: [Foot pain, right] Onset: 05-04-2023 Episodic Other connective tissue disease (1 source) Pain in right toe(s); Translations: [Pain of right great toe] Onset: 03-16-2023 Episodic Other connective tissue disease (1 source) Cramp and spasm; Translations: [Leg cramps] Onset: 01-18-2023 Episodic Other non-traumatic joint disorders (1 source) Pain in right ankle and joints of right foot; Translations: [Acute right ankle pain] Onset: 05-04-2023 Episodic Results Test Name Value Interpretation Reference Range Facility [facility] 12-20-2023 [facility] Office Visit (UCWSTR ) KAMALA GRAY ([id number]) 1970 F Date Time Provider Department 12/20/23 9:30 AM WHITLEY HSIEH RUST During your visit today, we recorded the following information about you: Temperature Pulse Respiration Blood pressure 97.7 degrees 88/minute 18/minute 130/84 Weight 136.2 kg Whitley Hsieh APRN.MARIA TERESA 12/20/2023 10:15 AM Signed Subjective Pain (foot) Pertinent negatives include no fever or itching. Kamala Gray is a 53 year old female who presents with right foot pain since yesterday. She denies injury. She states she gets gout once a year and this is consistent with previous episodes of gout. She describes sharp pain in right foot, worse with walking. There is also some swelling and redness of her skin. Rates pain 10/10. She has not taken any medication for pain at home. She also has a sore on the back of her neck from the strap of her sleep apnea machine. This has been present for a week. It is tender to touch. She denies fever. Review of Systems Constitutional: Negative for chills and fever. Respiratory: Negative. Cardiovascular: Negative. Musculoskeletal: Positive for joint pain. Negative for falls. See HPI Skin: Negative for itching and rash. See HPI BP 130/84 Pulse 88 Temp 36.5 ?C (97.7 ?F) Resp 18 Wt (!) 136.2 kg (300 lb 4.3 oz) LMP (LMP Unknown) SpO2 96% PAST MEDICAL HISTORY Diagnosis Date Asthma with COPD (HCC) Celiac disease CKD (chronic kidney disease) Diabetes mellitus type 2 (HCC) Gout Hyperlipidemia Hypertension Hypothyroidism Microcytic anemia Obesity, Class III, BMI 40-49.9 (morbid obesity) (HCC) Renal calculi No past surgical history on file. ALLERGIES Hydrochlorothiazide, Naproxen, Asa [Salicylates], and Penicillins MEDICATIONS nystatin (MYCOSTATIN) powder Apply 1 application to affected area three times a day. progesterone micronized (PROMETRIUM) 200 mg capsule magnesium oxide 200 mg magnesium tab Take 1 tablet by mouth daily at bedtime. atogepant (QULIPTA) 30 mg tablet Take by mouth. budesonide-formoterol (SYMBICORT) 160-4.5 mcg/actuation inhaler Inhale 2 Puffs as instructed. fremanezumab-vfrm (AJOVY AUTOINJECTOR) 225 mg/1.5 mL auto-injector Inject 225 mg subcutaneously once every month. Do not shake. TRELEGY ELLIPTA 100-62.5-25 mcg INHALE 1 PUFF DAILY with good oral care levothyroxine (SYNTHROID) 300 mcg tablet Take by mouth. Not taking predniSONE (DELTASONE) 20 mg tablet Take 2 tablets by mouth once daily for 4 days. Take daily with food. nystatin (MYCOSTATIN) powder Apply 1 application to affected area three times a day. (Patient not taking: Reported on 11/24/2023) apixaban (ELIQUIS) 5 mg tab(s) Take 5 mg by mouth once daily. (Patient not taking: Reported on 12/20/2023) ondansetron orally disintegrating (ZOFRAN ODT) 4 mg disintegrating tablet Take 1 tablet by mouth every 6 hours as needed for nausea/vomiting. (Patient not taking: Reported on 11/24/2023) benzonatate (TESSALON PERLES) 100 mg capsule Take 2 capsules by mouth three times daily as needed. (Patient not taking: Reported on 06/20/2023) guaiFENesin (MUCINEX FAST-MAX CHEST-CONGEST) 100 mg/5 mL syrup Take 20 mL by mouth every 4 hours as needed. (Patient not taking: Reported on 06/20/2023) megestrol (MEGACE) 40 mg tablet Take 40 mg by mouth once daily. (Patient not taking: Reported on 12/20/2023) acetaminophen(TYLENOL 325 MG TAB) (Patient not taking: Reported on 11/24/2023) No family history on file. Social History Tobacco Use Smoking status: Never Smokeless tobacco: Never Substance Use Topics Alcohol use: No Drug use: Never Objective Physical Exam Vitals and nursing note reviewed. Constitutional: General: She is not in acute distress. Appearance: Normal appearance. She is obese. She is not ill-appearing. Cardiovascular: Rate and Rhythm: Normal rate. Pulmonary: Effort: Pulmonary effort is normal. Musculoskeletal: Legs: Skin: General: Skin is warm and dry. Findings: Erythema present. No bruising. Neurological: Mental Status: She is alert. ASSESSMENT/PLAN: 1. Acute gout of right foot, unspecified cause - ICD9: 274.01, ICD10: M10.9 (primary diagnosis) - PREDNISONE 20 MG TABLET 2. Skin irritation - ICD9: 709.9, ICD10: R23.8 - MUPIROCIN 2 % TOPICAL OINTMENT - Follow-up with your PCP in 3-5 days if symptoms have not improved or sooner if symptoms worsen - Discussed red flags and need for immediate medical evaluation if any occur. - Discussed supportive care treatment with fluids, rest and analgesia. - Discussed expected course of illness DON Meza Kathy, APRN.CNP 12/20/2023 10:15 AM Signed ASSESSMENT/PLAN: 1. Acute gout of right foot, unspecified cause - ICD9: 274.01, ICD10: M10.9 (primary diagnosis) - PREDNISONE 20 MG TABLET 2. Skin (more content not included)... Normal [facility] CNOVon 11-24-2023 CNOV Office Visit (UCWSTR ) KAMALA GRAY ([id number]) 1970 F Date Time Provider Department 11/24/23 6:30 PM [facility] your visit today, we recorded the following information about you: Temperature Pulse Respiration Blood pressure 98.3 degrees 110/minute 18/minute 125/85 Weight 133.9 kg Yadira Ragsdale APRN.CNP 11/24/2023 6:42 PM Signed This note was created using [employer]. Subjective Kamala Gracia Isaac is a 53 year old female. HPI Pt has a rash under her right armpit and bilater groin. She was seen by Dr. Bernabe two weeks. And prescribed fluconazole tablets and nystatin powder. She states that she took the pills but has maybe been applying the nystatin powder once per day. She otherwise denies any nausea vomiting or fever. Review of Systems Skin: Positive for rash. Objective BP 125/85 Pulse 110 Temp 36.8 ?C (98.3 ?F) Resp 18 Wt 133.9 kg (295 lb 3.1 oz) LMP (LMP Unknown) SpO2 100% Physical Exam Vitals and nursing note reviewed. Constitutional: General: She is not in acute distress. Appearance: Normal appearance. She is not ill-appearing. HENT: Head: Normocephalic. Mouth/Throat: Mouth: Mucous membranes are moist. Eyes: Conjunctiva/sclera: Conjunctivae normal. Cardiovascular: Rate and Rhythm: Normal rate and regular rhythm. Pulmonary: Effort: Pulmonary effort is normal. Breath sounds: Normal breath sounds. Musculoskeletal: General: Normal range of motion. Cervical back: Normal range of motion. Skin: General: Skin is warm and dry. Comments: Erythematous scaly rash and right axillary region. Patient notes rash is similar in bilateral groin folds Neurological: General: No focal deficit present. Mental Status: She is alert. Psychiatric: Mood and Affect: Mood normal. Behavior: Behavior normal. Assessment and Plan ASSESSMENT/PLAN: 1. Fungal infection of skin - ICD9: 111.9, ICD10: B36.9 I informed the family that they should be applying the nystatin powder 2-3 times per day. I recommended that they gently wash the area with soap and water and apply a fresh layer of powder 2-3 times. I also encouraged them to separate the skin folds with a towel or some other piece of cloth that will allow the skin to dry. I informed them that it may take 2-3 weeks for symptoms to completely resolve. She was given a refill of the nystatin powder as they are almost out. Family comfortable with plan. - NYSTATIN 100,000 UNIT/GRAM TOPICAL POWDER Yadira Ragsdale APRN.CNP Allergies As of Date: 11/24/2023 Noted Allergy Reaction HYDROCHLOROTHIAZIDE 09/28/2019 16 - Unknown NAPROXEN 11/05/2018 11 - Vomiting 16 - Unknown ASA (SALICYLATES) 12/21/2007 PENICILLINS 11/24/2023 16 - Unknown Date Reviewed: 11/24/2023 Reviewed by: Yadira Ragsdale APRN.WRAPPING CLERK - Fully Assessed Reason for Visit: Rash [1087] Cmt: R armpit and groin x2 weeks Primary Visit Diagnosis:Fungal infection of skin [B36.9] Order(s):nystatin (MYCOSTATIN) powderApply 1 application to affected area three times a day.Disp: 60 gRfl: 0 Prescriptions as of 11/24/2023 - nystatin (MYCOSTATIN) powder Apply 1 application to affected area three times a day. - nystatin (MYCOSTATIN) powder Apply 1 application to affected area three times a day. - apixaban (ELIQUIS) 5 mg tab(s) Take 5 mg by mouth once daily. - ondansetron orally disintegrating (ZOFRAN ODT) 4 mg disintegrating tablet Take 1 tablet by mouth every 6 hours as needed for nausea/vomiting. - progesterone micronized (PROMETRIUM) 200 mg capsule - magnesium oxide 200 mg magnesium tab Take 1 tablet by mouth daily at bedtime. - atogepant (QULIPTA) 30 mg tablet Take by mouth. - budesonide-formoterol (SYMBICORT) 160-4.5 mcg/actuation inhaler Inhale 2 Puffs as instructed. - fremanezumab-vfrm (AJOVY AUTOINJECTOR) 225 mg/1.5 mL auto-injector Inject 225 mg subcutaneously once every month. Do not shake. - benzonatate (TESSALON PERLES) 100 mg capsule Take 2 capsules by mouth three times daily as needed. - guaiFENesin (MUCINEX FAST-MAX CHEST-CONGEST) 100 mg/5 mL syrup Take 20 mL by mouth every 4 hours as needed. - megestrol (MEGACE) 40 mg tablet Take 40 mg by mouth once daily. - TRELEGY ELLIPTA 100-62.5-25 mcg INHALE 1 PUFF DAILY with good oral care - levothyroxine (SYNTHROID) 300 mcg tablet Take by mouth. Not taking - acetaminophen(TYLENOL 325 MG TAB) Problem List As Of Date 11/24/2023 Noted Resolved HYPOTHYROIDISM NOS [E03.9] 12/21/2007 Prescriptions ordered this encounter Disp Refills Start End NYSTATIN 100,000 UNIT/GRAM TOPICAL P* 60 g 0 11/24/2023 Route: TOPICAL Sig: Apply 1 application to affected area three times a day. Encounter Status:Closed by YADIRA RAGSDALE on 11/24/23 Normal [facility] .Auto Diffon 11-13-2023 Basophil, Absolute 0.1 10 3/mcL Normal 0.0-0.2 [facility] Comment on above: Performed By: #### A JAGDEEP, MDW, CBC, TROPHS, BMP, ADIFF, GFR, PBNP #### [address] [address] Basophils/100 WBC (Bld) 0.7 % Normal 0.0-2.5 [facility] Comment on above: Performed By: #### A JUAN CARLOS GANNON, CBC, TROPHS, BMP, ADIFF, GFR, PBNP #### [address] [address] Eosinophil, Absolute 0.4 10 3/mcL Normal 0.0-0.4 [facility] Comment on above: Performed By: #### A JUAN CARLOS GANNON, CBC, TROPHS, BMP, ADIFF, GFR, PBNP #### [address] [address] Eosinophils/100 WBC (Bld) 2.9 % Normal 0.0-7.0 [facility] Comment on above: Performed By: #### A JUAN CARLOS GANNON, CBC, TROPHS, BMP, ADIFF, GFR, PBNP #### [address] [address] Lymphocyte, Absolute 1.5 10 3/mcL Normal 0.8-3.9 [facility] Comment on above: Performed By: #### A JUAN CARLOS GANNON, CBC, TROPHS, BMP, ADIFF, GFR, PBNP #### [address] [address] Lymphocytes/100 WBC (Bld) 11.3 % Normal 10.0-50.0 [facility] Comment on above: Performed By: #### A JUAN CARLOS GANNON, CBC, TROPHS, BMP, ADIFF, GFR, PBNP #### [address] [address] Monocyte, Absolute 1.0 10 3/mcL Normal 0.2-1.0 [facility] Comment on above: Performed By: #### A JUAN CARLOS GANNON, CBC, TROPHS, BMP, ADIFF, GFR, PBNP #### [address] [address] Monocytes/100 WBC (Bld) 7.6 % Normal 1.7-13.0 [facility] Comment on above: Performed By: #### A JUAN CARLOS GANNON, CBC, TROPHS, BMP, ADIFF, GFR, PBNP #### [address] [address] Neutrophils/100 WBC (Bld) 77.5 % Normal 37.0-80.0 [facility] Comment on above: Performed By: #### A JUAN CARLOS GANNON, CBC, TROPHS, BMP, ADIFF, GFR, PBNP #### [id number] [place], [place] [address] .GFRon 11-13-2023 GFR 53 ml/min/1.73sqm Normal [facility] Comment on above: Result Comment: GFR Population mean for , Non- Americans Ages 20-29 = 116 mL/min/1.73 sq.m. Ages 30-39 = 107 mL/min/1.73 sq.m. Ages 40-49 = 99 mL/min/1.73 sq.m. Ages 50-59 = 93 mL/min/1.73 sq.m. Ages 60-69 = 85 mL/min/1.73 sq.m. Ages 70+ = 75 mL/min/1.73 sq.m. Chronic Kidney Disease: Less than 60 mL/min/1.73 square meters End Stage Renal Disease: Less than 15 mL/min/1.73 square meters Performed By: #### A JUAN CARLOS GANNON, CBC, TROPHS, BMP, ADIFF, GFR, PBNP #### [address] [address] GFR Non- 44 ml/min/1.73sqm Normal [facility] Comment on above: Result Comment: GFR Population mean for , Non- Americans Ages 20-29 = 116 mL/min/1.73 sq.m. Ages 30-39 = 107 mL/min/1.73 sq.m. Ages 40-49 = 99 mL/min/1.73 sq.m. Ages 50-59 = 93 mL/min/1.73 sq.m. Ages 60-69 = 85 mL/min/1.73 sq.m. Ages 70+ = 75 mL/min/1.73 sq.m. Chronic Kidney Disease: Less than 60 mL/min/1.73 square meters End Stage Renal Disease: Less than 15 mL/min/1.73 square meters Performed By: #### A JUAN CARLOS GANNON, CBC, TROPHS, BMP, ADIFF, GFR, PBNP #### [address] [address] .MDWon 11-13-2023 Monocyte Distribution Width 19.09 Normal 0.00-20.00 [facility] Comment on above: Result Comment: For ED adult patients suspected of sepsis, MDW<=20.0 does not rule out sepsis or risk of sepsis Performed By: #### A JUAN CARLOS GANNON, CBC, TROPHS, BMP, ADIFF, GFR, PBNP #### [address] [address] .NEUABSon 11-13-2023 Neutrophil, Absolute 10.6 10 3/mcL High 2.9-6.2 [facility] Comment on above: Performed By: #### A JUAN CARLOS GANNON, CBC, TROPHS, BMP, ADIFF, GFR, PBNP #### [address] [address] BMPon 11-13-2023 BUN/Creatinine Ratio 13 ratio Normal 7-27 [facility] Comment on above: Performed By: #### A JUAN CARLOS GANNON, CBC, TROPHS, BMP, ADIFF, GFR, PBNP #### [address] [address] Calcium [Mass/Vol] 9.5 mg/dL Normal 8.4-10.2 [facility] Comment on above: Performed By: #### A JUAN CARLOS GANNON, CBC, TROPHS, BMP, ADIFF, GFR, PBNP #### [address] [address] Chloride [Moles/Vol] 103 mmol/L Normal 98-107 [facility] Comment on above: Performed By: #### A JUAN CARLOS GANNON, CBC, TROPHS, BMP, ADIFF, GFR, PBNP #### [address] [address] CO2 [Moles/Vol] 27 mmol/L Normal 22-29 [facility] Comment on above: Performed By: #### A JUAN CARLOS GANNON, CBC, TROPHS, BMP, ADIFF, GFR, PBNP #### [address] [address] Creatinine [Mass/Vol] 1.27 mg/dL High 0.55-1.02 [facility] Comment on above: Result Comment: Test ing performed on Siemens Dimension EXL analyzer using a modified kinetic Ammy technique. Performed By: #### A JUAN CARLOS GANNON, CBC, TROPHS, BMP, ADIFF, GFR, PBNP #### [address] [address] Electrolyte Balance 8.0 mEq/L Normal 4.0-15.0 [facility] Comment on above: Performed By: #### A JUAN CARLOS GANNON, CBC, TROPHS, BMP, ADIFF, GFR, PBNP #### [address] [address] Glucose [Mass/Vol] 120 mg/dL High 70-105 [facility] Comment on above: Performed By: #### A JUAN CARLOS GANNON, CBC, TROPHS, BMP, ADIFF, GFR, PBNP #### [address] [address] Potassium [Moles/Vol] 4.6 mmol/L Normal 3.5-5.1 [facility] Comment on above: Performed By: #### A JUAN CARLOS GANNON, CBC, TROPHS, BMP, ADIFF, GFR, PBNP #### [address] [address] Sodium [Moles/Vol] 138 mmol/L Normal 136-145 [facility] Comment on above: Performed By: #### A JUAN CARLOS GANNON, CBC, TROPHS, BMP, ADIFF, GFR, PBNP #### [address] [address] Urea nitrogen [Mass/Vol] 17 mg/dL Normal 7-18 [facility] Comment on above: Performed By: #### A JUAN CARLOS GANNON, CBC, TROPHS, BMP, ADIFF, GFR, PBNP #### [address] [address] CBCon 11-13-2023 Erythrocyte distribution width (RBC) [Ratio] 17.6 % High 11.5-14.5 [facility] Comment on above: Performed By: #### A JUAN CARLOS GANNON, CBC, TROPHS, BMP, ADIFF, GFR, PBNP #### [address] [address] Hematocrit (Bld) [Volume fraction] 32.6 % Low 37.0-47.0 [facility] Comment on above: Performed By: #### A JUAN CARLOS GANNON, CBC, TROPHS, BMP, ADIFF, GFR, PBNP #### [address] [address] Hgb 10.5 G/dL Low 12.0-16.0 [facility] Comment on above: Performed By: #### A JUAN CARLOS GANNON, CBC, TROPHS, BMP, ADIFF, GFR, PBNP #### [address] [address] MCH (RBC) [Entitic mass] 27.7 pg Normal 27.0-31.2 [facility] Comment on above: Performed By: #### A JUAN CARLOS GANNON, CBC, TROPHS, BMP, ADIFF, GFR, PBNP #### [address] [address] MCHC 32.3 G/dL Low 33.0-37.0 [facility] Comment on above: Performed By: #### A JUAN CARLOS GANNON, CBC, TROPHS, BMP, ADIFF, GFR, PBNP #### [address] [address] MCV (RBC) [Entitic vol] 85.9 fL Normal 80.0-94.0 [facility] Comment on above: Performed By: #### A JUAN CARLOS GANNON, CBC, TROPHS, BMP, ADIFF, GFR, PBNP #### [address] [address] Platelet 370 10 3/mcL Normal 130-400 [facility] Comment on above: Performed By: #### A JUAN CARLOS GANNON, CBC, TROPHS, BMP, ADIFF, GFR, PBNP #### [address] [address] Platelet mean volume (Bld) [Entitic vol] 7.8 fL Normal 7.4-10.4 [facility] Comment on above: Performed By: #### A JUAN CARLOS GANNON, CBC, TROPHS, BMP, ADIFF, GFR, PBNP #### [address] [address] RBC 3.80 10 6/mcL Low 4.20-5.40 [facility] Comment on above: Performed By: #### A JUAN CARLOS GANNON, CBC, TROPHS, BMP, ADIFF, GFR, PBNP #### [address] [address] WBC 13.6 10 3/mcL High 4.6-10.8 [facility] Comment on above: Performed By: #### A JUAN CARLOS GANNON, CBC, TROPHS, BMP, ADIFF, GFR, PBNP #### [address] [address] CVFLURVon 11-13-2023 FLU A PCR Negative Normal Negative [facility] Comment on above: Performed By: #### C VFLURV #### [address] [address] FLU B PCR Negative Normal Negative [facility] Comment on above: Performed By: #### C VFLURV #### [address] [address] RSV PCR Negative Normal Negative [facility] Comment on above: Performed By: #### C VFLURV #### [address] [address] SARS-CoV-2 (COVID-19) RNA IZZY+probe Ql (Unsp spec) Negative Normal Negative [facility] Comment on above: Result Comment: Resu lts from the Xpert Xpress CoV-2/Flu/RSV plus test should be correlated with the clinical history, epidemiological data, and other data available to the clinical evaluating the patient. Performance of the Xpert Xpress CoV-2/Flu/RSV plus test has only been established in nasopharyngeal swab specimen. Erroneous test results might occur from improper specimen collection, failure to follow the recommended sample collection, handling and storage procedures, technical error, or sample mix-up. False negative results may occur if a virus is present at a level below the analytical limit of detection. Viral nucleic acid may persist in vivo, independent of virus viability. Detection of analyte target(s) does not imply that the corresponding virus(es) are infectious or are the causative agents for clinical symptoms. Recent patient exposure to FluMist or other live attenuated influenza vaccines may cause inaccurate positive results. Performed By: #### C VFLURV #### [address] [address] FT4on 11-13-2023 Free T4 [Mass/Vol] 1.50 ng/dL High 0.76-1.46 [facility] Comment on above: Order Comment: Order ed by Discern Performed By: #### C VFLURV #### [address] [address] PBNPon 11-13-2023 Natriuretic peptide B (Bld) [Mass/Vol] 112 pg/mL Normal 0-125 [facility] Comment on above: Result Comment: NT-p roBNP results of less than 300 pg/mL effectively rules out acute congestive heart failure with 99% negative predictive value. Performed By: #### A JUAN CARLOS GANNON, CBC, TROPHS, BMP, ADIFF, GFR, PBNP #### [address] [address] TROPHSon 11-13-2023 High Sensitivity Troponin I 8 ng/L Normal 0-51 [facility] Comment on above: Result Comment: High Sensitive Troponin I Reference Ranges: Female: 0-51 ng/L Male: 0-76 ng/L Testing performed on [employer] using a homogeneous sandwich chemiluminescent immunoassay based on Solvate technology. Performed By: #### A JUAN CARLOS GANNON, CBC, TROPHS, BMP, ADIFF, GFR, PBNP #### [id number] [place], [place] [address] TSHRon 11-13-2023 TSH Qn 0.11 m[IU]/L Low 0.36-3.74 [facility] Comment on above: Performed By: #### C VFLURV #### [id number] [place], [place] [address] XR CHEST 1 VIEWon 11-13-2023 XR CHEST 1 VIEW ORIGINAL EXAMINATION: ONE XRAY VIEW OF THE CHEST 11/13/2023 4:00 pm COMPARISON: 08/22/2023 HISTORY: ORDERING SYSTEM PROVIDED HISTORY: Reason for Exam: SOB/cough/fever FINDINGS: Exam is limited secondary to patient body habitus and depth of inspiration. Stable cardiomegaly accounting for differences in projection and technique. Low lung volumes with bronchovascular crowding. Diffuse interstitial prominence is favored related/artifactual. No large pleural effusion or visible pneumothorax. Osseous structures are poorly evaluated. IMPRESSION: Limited exam. Low lung volumes with favored hypoventilatory changes. I have reviewed the resident's preliminary report and agree with findings and impression. Interpreted by: Williams Sousa Preliminary Report By: Karla Hall Electronically signed By Williams Sousa Dictated Date: 11/13/2023 4:03:36 PM Prelim Date: 11/13/2023 4:05:11 PM Sign Date: 11/13/2023 4:11:16 PM Ordering Provider: KATERINA MORA [facility] CUR 09-09-2023 [facility] ([place]) .Auto Diffon 09-05-2023 Basophil, Absolute 0.1 10 3/mcL Normal 0.0-0.2 [facility] ([place]) Comment on above: Performed By: #### A JAGDEEP, CBC, LIP, ADIFF, TROPHS, GFR, MDW, CMP ####[id number] [place], [place] [address] Basophils/100 WBC (Bld) 1.2 % Normal 0.0-2.5 [facility] ([place]) Comment on above: Performed By: #### A JAGDEEP, CBC, LIP, ADIFF, TROPHS, GFR, MDW, CMP ####[facility] [place], [place] [address] Eosinophil, Absolute 0.5 10 3/mcL High 0.0-0.4 [facility] ([place]) Comment on above: Performed By: #### A JAGDEEP, CBC, LIP, ADIFF, TROPHS, GFR, MDW, CMP ####[address] [place], [place] [address] Eosinophils/100 WBC (Bld) 4.2 % Normal 0.0-7.0 [facility] ([place]) Comment on above: Performed By: #### A JAGDEEP, CBC, LIP, ADIFF, TROPHS, GFR, MDW, CMP ####[address] [place], [place] [address] Lymphocyte, Absolute 1.8 10 3/mcL Normal 0.8-3.9 [facility] ([place]) Comment on above: Performed By: #### A JAGDEEP, CBC, LIP, ADIFF, TROPHS, GFR, MDW, CMP ####[address] [place], [place] [address] Lymphocytes/100 WBC (Bld) 16.5 % Normal 10.0-50.0 [facility] ([place]) Comment on above: Performed By: #### A JAGDEEP, CBC, LIP, ADIFF, TROPHS, GFR, MDW, CMP ####[address] [place], [place] [address] Monocyte, Absolute 1.0 10 3/mcL Normal 0.2-1.0 [facility] ([place]) Comment on above: Performed By: #### A JAGDEEP, CBC, LIP, ADIFF, TROPHS, GFR, MDW, CMP ####[address] [place], [place] [address] Monocytes/100 WBC (Bld) 9.3 % Normal 1.7-13.0 [facility] ([place]) Comment on above: Performed By: #### A JAGDEEP, CBC, LIP, ADIFF, TROPHS, GFR, MDW, CMP ####[address] [place], [place] [address] Neutrophils/100 WBC (Bld) 68.8 % Normal 37.0-80.0 [facility] ([place]) Comment on above: Performed By: #### A JAGDEEP, CBC, LIP, ADIFF, TROPHS, GFR, W, CMP ####[address] [place], [place] [address] .GFRon 09-05-2023 GFR Non- 37 ml/min/1.73sqm Normal [facility] ([place]) Comment on above: Result Comment: GFR Population mean for , Non- Americans Ages 20-29 = 116 mL/min/1.73 sq.m. Ages 30-39 = 107 mL/min/1.73 sq.m. Ages 40-49 = 99 mL/min/1.73 sq.m. Ages 50-59 = 93 mL/min/1.73 sq.m. Ages 60-69 = 85 mL/min/1.73 sq.m. Ages 70+ = 75 mL/min/1.73 sq.m.Chronic Kidney Disease: Less than 60 mL/min/1.73 square metersEnd Stage Renal Disease: Less than 15 mL/min/1.73 square meters Performed By: #### A JAGDEEP, CBC, LIP, ADIFF, TROPHS, GFR, W, CMP ####[address] [place], [place] [address] GFR 45 ml/min/1.73sqm Normal [facility] ([place]) Comment on above: Result Comment: GFR Population mean for , Non- Americans Ages 20-29 = 116 mL/min/1.73 sq.m. Ages 30-39 = 107 mL/min/1.73 sq.m. Ages 40-49 = 99 mL/min/1.73 sq.m. Ages 50-59 = 93 mL/min/1.73 sq.m. Ages 60-69 = 85 mL/min/1.73 sq.m. Ages 70+ = 75 mL/min/1.73 sq.m.Chronic Kidney Disease: Less than 60 mL/min/1.73 square metersEnd Stage Renal Disease: Less than 15 mL/min/1.73 square meters Performed By: #### A JAGDEEP, CBC, LIP, ADIFF, TROPHS, GFR, MDW, CMP ####[address] [place], [place] [address] .MDWon 09-05-2023 Monocyte Distribution Width 21.83 High 0.00-20.00 [facility] ([place]) Comment on above: Result Comment: For adults in ED, MDW>20.0 may be associated with a higher risk of sepsis during the first 12hrs of hospital admission Performed By: #### A JAGDEEP, CBC, LIP, ADIFF, TROPHS, GFR, MDW, CMP ####[address] [place] [address] .NEUABSon 09-05-2023 Neutrophil, Absolute 7.5 10 3/mcL High 2.9-6.2 [facility] ([place]) Comment on above: Performed By: #### A JAGDEEP, CBC, LIP, ADIFF, TROPHS, GFR, MDW, CMP ####[address] [place] [address] .Urinalysis Microscopic (AO) on 09-05-2023 UA Bacteria 1+ /hpf Abnormal [facility] ([place]) Comment on above: Performed By: #### U A, UAMICAO ####[address] [place] [address] UA RBC 0-5 Abnormal None Seen [facility] ([place]) Comment on above: Performed By: #### U A, UAMICAO ####[address] [place] [address] UA Squam Epithelial 0-5 Abnormal None Seen [facility] ([place]) Comment on above: Performed By: #### U A, UAMICAO ####[address] [place] [address] UA WBC 10-15 Abnormal None Seen [facility] ([place]) Comment on above: Performed By: #### U A, UAMICAO ####[address] [place] [address] CBCon 09-05-2023 Erythrocyte distribution width (RBC) [Ratio] 18.4 % High 11.5-14.5 [facility] ([place]) Comment on above: Performed By: #### A JAGDEEP, CBC, LIP, ADIFF, TROPHS, GFR, MDW, CMP ####[address] [place], [place] [address] Hematocrit (Bld) [Volume fraction] 35.1 % Low 37.0-47.0 [facility] ([place]) Comment on above: Performed By: #### A JAGDEEP, CBC, LIP, ADIFF, TROPHS, GFR, MDW, CMP ####[address] [place], [place] [address] Hgb 11.3 G/dL Low 12.0-16.0 [facility] ([place]) Comment on above: Performed By: #### A JAGDEEP, CBC, LIP, ADIFF, TROPHS, GFR, MDW, CMP ####[address] [place], [place] [address] MCH (RBC) [Entitic mass] 27.7 pg Normal 27.0-31.2 [facility] ([place]) Comment on above: Performed By: #### A JAGDEEP, CBC, LIP, ADIFF, TROPHS, GFR, MDW, CMP ####[address] [place], [place] [address] MCHC 32.2 G/dL Low 33.0-37.0 [facility] ([place]) Comment on above: Performed By: #### A JAGDEEP, CBC, LIP, ADIFF, TROPHS, GFR, MDW, CMP ####[address] [place], [place] [address] MCV (RBC) [Entitic vol] 86.2 fL Normal 80.0-94.0 [facility] ([place]) Comment on above: Performed By: #### A JAGDEEP, CBC, LIP, ADIFF, TROPHS, GFR, MDW, CMP ####[address] [place], [place] [address] Platelet 398 10 3/mcL Normal 130-400 [facility] ([place]) Comment on above: Performed By: #### A JAGDEEP, CBC, LIP, ADIFF, TROPHS, GFR, MDW, CMP ####[address] [place], [place] [address] Platelet mean volume (Bld) [Entitic vol] 7.9 fL Normal 7.4-10.4 [facility] ([place]) Comment on above: Performed By: #### A JAGDEEP, CBC, LIP, ADIFF, TROPHS, GFR, MDW, CMP ####[address] [place], [place] [address] RBC 4.07 10 6/mcL Low 4.20-5.40 [facility] ([place]) Comment on above: Performed By: #### A JAGDEEP, CBC, LIP, ADIFF, TROPHS, GFR, MDW, CMP ####[address] [place], [place] [address] WBC 10.8 10 3/mcL Normal 4.6-10.8 [facility] ([place]) Comment on above: Performed By: #### A JAGDEEP, CBC, LIP, ADIFF, TROPHS, GFR, MDW, CMP ####[address] [place], [place] [address] CMPon 09-05-2023 Albumin Level 3.0 G/dL Low 3.5-5.0 [facility] ([place]) Comment on above: Performed By: #### A JAGDEEP, CBC, LIP, ADIFF, TROPHS, GFR, MDW, CMP ####[address] [place], [place] [address] Albumin/Globulin [Mass ratio] 0.8 {ratio} Low 1.1-2.5 [facility] ([place]) Comment on above: Performed By: #### A JAGDEEP, CBC, LIP, ADIFF, TROPHS, GFR, MDW, CMP ####[address] [place], [place] [address] ALP [Catalytic activity/Vol] 144 U/L High 40-135 [facility] ([place]) Comment on above: Performed By: #### A JAGDEEP, CBC, LIP, ADIFF, TROPHS, GFR, MDW, CMP ####[address] [place], [place] [address] ALT [Catalytic activity/Vol] 44 U/L Normal 14-59 [facility] ([place]) Comment on above: Performed By: #### A JAGDEEP, CBC, LIP, ADIFF, TROPHS, GFR, MDW, CMP ####[address] [place], [place] [address] AST [Catalytic activity/Vol] 41 U/L High 10-40 [facility] ([place]) Comment on above: Performed By: #### A JAGDEEP, CBC, LIP, ADIFF, TROPHS, GFR, MDW, CMP ####[address] [place], [place] [address] Bili Total 0.3 mg/dL Normal 0.2-1.0 [facility] ([place]) Comment on above: Result Comment: Use of this assay is not recommended for patients undergoing treatment with eltrombopag due to the potential for falsely elevated results. Performed By: #### A JAGDEEP, CBC, LIP, ADIFF, TROPHS, GFR, MDW, CMP ####[address] [place], [place] [address] BUN/Creatinine Ratio 7 ratio Normal 7-27 [facility] ([place]) Comment on above: Performed By: #### A JAGDEEP, CBC, LIP, ADIFF, TROPHS, GFR, MDW, CMP ####[address] [place], [place] [address] Calcium [Mass/Vol] 9.4 mg/dL Normal 8.4-10.2 Replaced by [facility] ([place]) Comment on above: Performed By: #### A JAGDEEP, CBC, LIP, ADIFF, TROPHS, GFR, MDW, CMP ####[address] [place], [place] [address] Chloride [Moles/Vol] 103 mmol/L Normal 98-107 [facility] ([place]) Comment on above: Performed By: #### A JAGDEEP, CBC, LIP, ADIFF, TROPHS, GFR, MDW, CMP ####[address] [place], [place] [address] CO2 [Moles/Vol] 30 mmol/L High 22-29 [facility] ([place]) Comment on above: Performed By: #### A JAGDEEP, CBC, LIP, ADIFF, TROPHS, GFR, MDW, CMP ####[address] [place], [place] [address] Creatinine [Mass/Vol] 1.46 mg/dL High 0.55-1.02 [facility] ([place]) Comment on above: Performed By: #### A JAGDEEP, CBC, LIP, ADIFF, TROPHS, GFR, MDW, CMP ####[address] [place], [place] [address] Electrolyte Balance 8.0 mEq/L Normal 4.0-15.0 [facility] ([place]) Comment on above: Performed By: #### A JAGDEEP, CBC, LIP, ADIFF, TROPHS, GFR, MDW, CMP ####[address] [place], [place] [address] Globulin 4.0 G/dL Normal [facility] ([place]) Comment on above: Performed By: #### A JAGDEEP, CBC, LIP, ADIFF, TROPHS, GFR, MDW, CMP ####[address] [place], [place] [address] Glucose [Mass/Vol] 119 mg/dL High 70-105 Replaced by [facility] ([place]) Comment on above: Performed By: #### A JAGDEEP, CBC, LIP, ADIFF, TROPHS, GFR, MDW, CMP ####[address] [place], [place] [address] Potassium [Moles/Vol] 3.7 mmol/L Normal 3.5-5.1 [facility] ([place]) Comment on above: Performed By: #### A JAGDEEP, CBC, LIP, ADIFF, TROPHS, GFR, MDW, CMP ####[address] [place], [place] [address] Sodium [Moles/Vol] 141 mmol/L Normal 136-145 Replaced by [facility] ([place]) Comment on above: Performed By: #### A JAGDEEP, CBC, LIP, ADIFF, TROPHS, GFR, MDW, CMP ####[address] [place], [place] [address] Total Protein 7.0 G/dL Normal 6.4-8.2 [facility] ([place]) Comment on above: Performed By: #### A JAGDEEP, CBC, LIP, ADIFF, TROPHS, GFR, MDW, CMP ####[address] [place], [place] [address] Urea nitrogen [Mass/Vol] 10 mg/dL Normal 7-18 [facility] ([place]) Comment on above: Performed By: #### A JAGDEEP, CBC, LIP, ADIFF, TROPHS, GFR, MDW, CMP ####[address] [place], [place] [address] LABORATORYOrdered By: Katerina Stockton on 09-05-2023 Appearance (U) Clear (09/05/23 8:28 PM) Normal Clear AO Auto Urine SS Bacteria LM.HPF (Urine sed) [#/Area] 1 /[HPF] Invalid Interpretation Code AO Auto Urine SS Bilirubin Ql (U) Negative (09/05/23 8:28 PM) Normal Negative AO Auto Urine SS Color (U) Yellow (09/05/23 8:28 PM) Normal AO Auto Urine SS Glucose Test strip (U) [Mass/Vol] Negative Normal Negative AO Auto Urine SS Hemoglobin Auto test strip (U) [Mass/Vol] Trace *ABN* (09/05/23 8:28 PM) Invalid Interpretation Code Negative AO Auto Urine SS Ketones Ql (U) Negative Normal Negative AO Auto Ur ine SS UA Leuk Est Trace *ABN* (09/05/23 8:28 PM) Invalid Interpretation Code Negative AO Auto Urine SS UA Nitrite Negative (09/05/23 8:28 PM) Normal Negative AO Auto Urine SS UA pH 6.0 (09/05/23 8:28 PM) Normal 5.0 - 8.0 AO Auto Urine SS UA Protein Negative Normal Negative AO Auto Urine SS UA RBC 0-5 /HPF Invalid Interpretation Code None Seen AO Auto Urine SS UA Spec Grav 1.025 (09/05/23 8:28 PM) Normal 1.015-1.025 AO Auto Urine SS UA Specimen Type Clean Catch (09/05/23 8:28 PM) Normal AO Auto Urine SS UA Squam Epithelial 0-5 /HPF Invalid Interpretation Code None Seen AO Auto Urine SS UA Urobilinogen 0.2 E.U./dL Normal 0.2-1.0 AO Auto Urine SS WBC LM.HPF (Urine sed) [#/Area] 10-15 /HPF Invalid Interpretation Code None Seen AO Auto Urine SS LABORATORYOrdered By: SYSTEM SYSTEM on 09-05-2023 Albumin BCP dye [Mass/Vol] 3.0 G/dL Low 3.5 - 5.0 G/dL AO ADM SS Albumin/Globulin [Mass ratio] 0.8 {ratio} Low 1.1 - 2.5 ratio AO ADM SS ALP [Catalytic activity/Vol] 144 U/L High 40 - 135 U/L AO ADM SS ALT With P-5'-P [Catalytic activity/Vol] 44 U/L Normal 14 - 59 U/L AO ADM SS AST With P-5'-P [Catalytic activity/Vol] 41 U/L High 10 - 40 U/L AO ADM SS Basophil, Absolute 0.1 103/mcL Normal 0.0 - 0.2 10^3/mcL AO Workflow SS Basophils/100 WBC (Bld) 1.2 % Normal 0.0 - 2.5 % AO Workflow SS Bilirubin [Mass/Vol] 0.3 mg/dL Normal 0.2 - 1 .0 mg/dL AO ADM SS Comment on above: Interpretive Data: U se of this assay is not recommended for patients undergoing treatment with eltrombopag due to the potential for falsely elevated results. Calcium [Mass/Vol] 9.4 mg/dL Normal 8.4 - 10. 2 mg/dL AO ADM SS Chloride [Moles/Vol] 103 mmol/L Normal 98 - 10 7 mmol/L AO ADM SS CO2 [Moles/Vol] 30 mmol/L High 22 - 29 mmol/L AO ADM SS Creatinine [Mass/Vol] 1.46 mg/dL High 0.55 - 1.02 mg/dL AO ADM SS Electrolyte Balance 8.0 mEq/L Normal 4.0 - 15 .0 mEq/L AO ADM SS Eosinophil, Absolute 0.5 103/mcL High 0.0 - 0 .4 10^3/mcL AO Workflow SS Eosinophils/100 WBC (Bld) 4.2 % Normal 0.0 - 7.0 % AO Workflow SS Erythrocyte distribution width (RBC) [Ratio] 18.4 % High 11.5 - 14.5 % AO Workflow SS GFR/1.73 sq M.predicted among blacks MDRD (S/P/Bld) [Vol rate/Area] 45 ml/min/1.73sqm Invalid Interpretation Code AO Chemistry S Comment on above: Interpretive Data: GFR Population mean for , Non- Americans Ages 20-29 = 116 mL/min/1.73 sq.m. Ages 30-39 = 107 mL/min/1.73 sq.m. Ages 40-49 = 99 mL/min/1.73 sq.m. Ages 50-59 = 93 mL/min/1.73 sq.m. Ages 60-69 = 85 mL/min/1.73 sq.m. Ages 70+ = 75 mL/min/1.73 sq.m. Chronic Kidney Disease: Less than 60 mL/min/1.73 square meters End Stage Renal Disease: Less than 15 mL/min/1.73 square meters GFR/1.73 sq M.predicted among non-blacks MDRD (S/P/Bld) [Vol rate/Area] 37 ml/min/1.73sqm Invalid Interpretation Code AO Chemistry S Comment on above: Interpretive Data: GFR Population mean for , Non- Americans Ages 20-29 = 116 mL/min/1.73 sq.m. Ages 30-39 = 107 mL/min/1.73 sq.m. Ages 40-49 = 99 mL/min/1.73 sq.m. Ages 50-59 = 93 mL/min/1.73 sq.m. Ages 60-69 = 85 mL/min/1.73 sq.m. Ages 70+ = 75 mL/min/1.73 sq.m. Chronic Kidney Disease: Less than 60 mL/min/1.73 square meters End Stage Renal Disease: Less than 15 mL/min/1.73 square meters Globulin 4.0 G/dL Invalid Interpretation Code AO ADM SS Glucose [Mass/Vol] 119 mg/dL High 70 - 105 mg/dL AO ADM SS Hematocrit (Bld) [Volume fraction] 35.1 % Low 37.0 - 47.0 % AO Workflow SS Hemoglobin (Bld) [Mass/Vol] 11.3 G/dL Low 12.0 - 16.0 G/dL AO Workflow SS Lipase [Catalytic activity/Vol] 50 U/L Normal 16 - 77 U/L AO ADM SS Lymphocyte, Absolute 1.8 103/mcL Normal 0.8 - 3 .9 10^3/mcL AO Workflow SS Lymphocytes/100 WBC (Bld) 16.5 % Normal 10.0 - 50.0 % AO Workflow SS MCH (RBC) [Entitic mass] 27.7 pg Normal 27.0 - 31.2 pg AO Workflow SS MCHC 32.2 G/dL Low 33.0 - 37.0 G/dL AO Workflow SS MCV (RBC) [Entitic vol] 86.2 fL Normal 80.0 - 94.0 fL AO Workflow SS Monocyte distribution width Auto (Bld) [Entitic vol] 21.83 1 High 0.00 - 20.00 AO Workflow SS Comment on above: Result Comment: For adults in ED, MDW>20.0 may be associated with a higher risk of sepsis during the first 12hrs of hospital admission Monocyte, Absolute 1.0 103/mcL Normal 0.2 - 1.0 10^3/mcL AO Workflow SS Monocytes/100 WBC (Bld) 9.3 % Normal 1.7 - 13.0 % AO Workflow SS Neutrophil, Absolute 7.5 103/mcL High 2.9 - 6 .2 10^3/mcL AO Workflow SS Neutrophils/100 WBC (Bld) 68.8 % Normal 37.0 - 80.0 % AO Workflow SS Platelet mean volume (Bld) [Entitic vol] 7.9 fL Normal 7.4 - 10.4 fL AO Workflow SS Platelets (Bld) [#/Vol] 398 103/mcL Normal 130 - 400 10^3/mcL AO Workflow SS Potassium [Moles/Vol] 3.7 mmol/L Normal 3.5 - 5.1 mmol/L AO ADM SS Protein [Mass/Vol] 7.0 G/dL Normal 6.4 - 8.2 G/dL AO ADM SS RBC (Bld) [#/Vol] 4.07 106/mcL Low 4.20 - 5.4 0 10^6/mcL AO Workflow SS Sodium [Moles/Vol] 141 mmol/L Normal 136 - 145 mmol/L AO ADM SS Troponin I.cardiac DL <= 0.01 ng/mL [Mass/Vol] 5 ng/L Normal 0 - 51 ng/L AO ADM SS Comment on above: Interpretive Data: H igh Sensitive Troponin I Reference Ranges: Female: 0-51 ng/L Male: 0-76 ng/L Testing performed on [place] using a homogeneous sandwich chemiluminescent immunoassay based on Solvate technology. Urea nitrogen [Mass/Vol] 10 mg/dL Normal 7 - 18 mg/dL AO ADM SS Urea nitrogen/Creatinine [Mass ratio] 7 ratio Normal 7 - 27 ratio AO ADM SS WBC (Bld) [#/Vol] 10.8 103/mcL Normal 4.6 - 10.8 10^3/mcL AO Workflow SS LIPon 09-05-2023 Lipase Level 50 U/L Normal 16-77 [facility] ([place]) Comment on above: Performed By: #### A JAGDEEP, CBC, LIP, ADIFF, TROPHS, GFR, MDW, CMP ####[address] [place], [place] [address] TROPHSon 09-05-2023 High Sensitivity Troponin I 5 ng/L Normal 0-51 [facility] ([place]) Comment on above: Result Comment: High Sensitive Troponin I Reference Ranges:Female: 0-51 ng/LMale: 0-76 ng/LTesting performed on [place] using a homogeneous sandwich chemiluminescent immunoassay based on Solvate technology. Performed By: #### A JAGDEEP, CBC, LIP, ADIFF, TROPHS, GFR, MDW, CMP ####[address] [place], [place] [address] UAon 09-05-2023 Color (U) Yellow Normal [facility] ([place]) Comment on above: Performed By: #### U Apolinar UAMICAO ####[address] [place], [place] [address] Glucose (U) [Mass/Vol] Negative Normal Negative [facility] [place] Comment on above: Performed By: #### U A UAMICAO ####[address] [place], [place] [address] Ketones Ql (U) Negative Normal Negative [facility] ([place]) Comment on above: Performed By: #### U A UAMICAO ####[address] [place], [place] [address] UA Appear Clear Normal Clear [facility] ([place]) Comment on above: Performed By: #### U A UAMICAO ####[address] [place], [place] [address] UA Blood Trace Abnormal Negative [facility] ([place]) Comment on above: Performed By: #### U A, UAMICAO ####[address] [place], [place] [address] UA Leuk Est Trace Abnormal Negative [facility] ([place]) Comment on above: Performed By: #### U A, UAMICAO ####[address] [place], [place] [address] UA Nitrite Negative Normal Negative [facility] ([place]) Comment on above: Performed By: #### U A, UAMICAO ####[address] [place], [place] [address] UA pH 6.0 Normal 5.0 - 8.0 [facility] ([place]) Comment on above: Performed By: #### U A, UAMICAO ####[address] [place], [place] [address] UA Protein Negative Normal Negative [facility] ([place]) Comment on above: Performed By: #### U A, UAMICAO ####[address] [place] [address] UA Spec Grav 1.025 Normal 1.015-1.025 [facility] ([place]) Comment on above: Performed By: #### U A, UAMICAO ####[address] [place] [address] UA Specimen Type Clean Catch Normal [facility] ([place]) Comment on above: Performed By: #### U A, UAMICAO ####[address] [place] [address] UA Urobilinogen 0.2 E.U./dL Normal 0.2-1.0 [facility] ([place]) Comment on above: Performed By: #### U A, UAMICAO ####[address] [place] [address] Urobilinogen (U) [Mass/Vol] Negative Normal Negative [facility] ([place] Comment on above: Performed By: #### U A, UAMICAO ####John[address] [place] [address] XR ABDOMEN 2 VIEWS W/ DECUB/ ERECTon 09-05-2023 XR ABDOMEN 2 VIEWS W/ DECUB/ERECT Normal [facility] ([place]) .Urinalysis Microscopic (AO) on 08-22-2023 UA Bacteria Trace Abnormal [facility] ([place] Comment on above: Performed By: #### U AMICAO, UA ####Johny [address] [place], [place] [address] UA RBC 0-5 Abnormal None Seen [facility] ([place] Comment on above: Performed By: #### U AMICAO, UA ####Johny [address] [place], [place] [address] UA Squam Epithelial 0-5 Abnormal None Seen [facility] ([place] Comment on above: Performed By: #### U AMICAO, UA ####Johny [address] [place], [place] [address] UA WBC 0-5 Abnormal None Seen [facility] ([place] Comment on above: Performed By: #### U AMICAO, UA ####Johny [address] [place], [place] [address] LABORATORYOrdered By: Jagjit hunter on 08-22-2023 Appearance (U) Clear (08/22/23 10:52 AM) Normal Clear AO Auto Urine SS Bacteria LM.HPF (Urine sed) [#/Area] Trace /HPF Invalid Interpretation Code AO Auto Urine SS Bilirubin Ql (U) Negative (08/22/23 10:52 AM) Normal Negative AO Auto Urine SS Color (U) Yellow (08/22/23 10:52 AM) Normal AO Auto Urine SS Glucose Test strip (U) [Mass/Vol] Negative Normal Negative AO Auto Urine SS Hemoglobin Auto test strip (U) [Mass/Vol] Negative (08/22/23 10:52 AM) Normal Negative AO Auto Urine SS Ketones Ql (U) Negative Normal Negative AO Auto Ur ine SS UA Leuk Est Trace *ABN* (08/22/23 10:52 AM) Invalid Interpretation Code Negative AO Auto Urine SS UA Nitrite Negative (08/22/23 10:52 AM) Normal Negative AO Auto Urine SS UA pH 6.5 (08/22/23 10:52 AM) Normal 5.0 - 8.0 AO Auto Urine SS UA Protein Negative Normal Negative AO Auto Urine SS UA RBC 0-5 /HPF Invalid Interpretation Code None Seen AO Auto Urine SS UA Spec Grav 1.020 (08/22/23 10:52 AM) Normal 1.015-1.025 AO Auto Urine SS UA Specimen Type Clean Catch (08/22/23 10:52 AM) Normal AO Auto Urine SS UA Squam Epithelial 0-5 /HPF Invalid Interpretation Code None Seen AO Auto Urine SS UA Urobilinogen 0.2 E.U./dL Normal 0.2-1.0 AO Auto Urine SS WBC LM.HPF (Urine sed) [#/Area] 0-5 /HPF Invalid Interpretation Code None Seen AO Auto Urine SS UAon 08-22-2023 Color (U) Yellow Normal [facility] ([place] Comment on above: Performed By: #### U AMICAO, UA ####[address] [place], [place] [address] Glucose (U) [Mass/Vol] Negative Normal Negative [facility] [place] Comment on above: Performed By: #### U AMICAO, UA ####[address] [place], [place] [address] Ketones Ql (U) Negative Normal Negative [facility] ([place] Comment on above: Performed By: #### U AMICAO, UA ####[address] [place], [place] [address] UA Appear Clear Normal Clear [facility] ([place] Comment on above: Performed By: #### U AMICAO, UA ####[address] [place], [place] [address] UA Blood Negative Normal Negative [facility] ([place] Comment on above: Performed By: #### U AMICAO, UA ####[address] [place], [place] [address] UA Leuk Est Trace Abnormal Negative [facility] ([place] Comment on above: Performed By: #### U AMICAO, UA ####[address] [place], [place] [address] UA Nitrite Negative Normal Negative [facility] ([place] Comment on above: Performed By: #### U AMICAO, UA ####Johny [address] [place], [place] [address] UA pH 6.5 Normal 5.0 - 8.0 [facility] ([place] Comment on above: Performed By: #### U AMICAO, UA ####Johny [address] [place], [place] [address] UA Protein Negative Normal Negative [facility] ([place] Comment on above: Performed By: #### U AMICAVira, UA ####Johny [address] [place], [place] [address] UA Spec Grav 1.020 Normal 1.015-1.025 [facility] ([place]) Comment on above: Performed By: #### U RADHAMES UA ####Johny [address] [place], [place] [address] UA Specimen Type Clean Catch Normal [facility] ([place]) Comment on above: Performed By: #### U AMISUNNI UA ####Johny [address] [place], [place] [address] UA Urobilinogen 0.2 E.U./dL Normal 0.2-1.0 [facility] ([place]) Comment on above: Performed By: #### U RADHAMES UA ####Johny [address] [place], [place] [address] Urobilinogen (U) [Mass/Vol] Negative Normal Negative [facility] ([place]) Comment on above: Performed By: #### U AMICAVira, UA ####Johny [address] [place], [place] [address] XR CHEST 1 VIEWon 08-22-2023 XR CHEST 1 VIEW Normal [facility] ([place]) .Auto Diffon 08-16-2023 Basophil, Absolute 0.0 10 3/mcL Normal 0.0-0.2 [facility] ([place]) Comment on above: Performed By: #### C MP, ALC, GFR, CBC, TROPHS, MDW, ANEU, ACETA, ADIFF, TSH, FRANCINE ####Johny [address] [place], [place] [address] Basophils/100 WBC (Bld) 0.3 % Normal 0.0-2.5 [facility] ([place]) Comment on above: Performed By: #### C MP, ALC, GFR, CBC, TROPHS, MDW, ANEU, ACETA, ADIFF, TSH, FRANCINE ####Johny [address] [place], [place] [address] Eosinophil, Absolute 0.0 10 3/mcL Normal 0.0-0.4 [facility] ([place]) Comment on above: Performed By: #### C MP, ALC, GFR, CBC, TROPHS, MDW, ANEU, ACETA, ADIFF, TSH, FRANCINE ####Johny [address] [place], [place] [address] Eosinophils/100 WBC (Bld) 0.0 % Normal 0.0-7.0 [facility] ([place]) Comment on above: Performed By: #### C MP, ALC, GFR, CBC, TROPHS, MDW, ANEU, ACETA, ADIFF, TSH, FRANCINE ####Johny [address] [place], [place] [address] Lymphocyte, Absolute 1.5 10 3/mcL Normal 0.8-3.9 [facility] ([place]) Comment on above: Performed By: #### C MP, ALC, GFR, CBC, TROPHS, MDW, ANEU, ACETA, ADIFF, TSH, FRANCINE ####Johny [address] [place], [place] [address] Lymphocytes/100 WBC (Bld) 11.1 % Normal 10.0-50.0 [facility] ([place]) Comment on above: Performed By: #### C MP, ALC, GFR, CBC, TROPHS, MDW, ANEU, ACETA, ADIFF, TSH, FRANCINE ####Johny [address] [place], [place] [address] Monocyte, Absolute 1.0 10 3/mcL Normal 0.2-1.0 [facility] ([place]) Comment on above: Performed By: #### C MP, ALC, GFR, CBC, TROPHS, MDW, ANEU, ACETA, ADIFF, TSH, FRANCINE ####Johny [address] [place], [place] [address] Monocytes/100 WBC (Bld) 7.8 % Normal 1.7-13.0 [facility] ([place]) Comment on above: Performed By: #### C MP, ALC, GFR, CBC, DARRELL, W, ANEU, ACETA, ADIFF, TSH, FRANCINE ####Johny [address] [place], [place] [address] Neutrophils/100 WBC (Bld) 80.8 % High 37.0-80.0 [facility] ([place]) Comment on above: Performed By: #### C MP, ALC, GFR, CBC, DARRELL, W, ANEU, ACETA, ADIFF, TSH, FRANCINE ####Johny [address] [place], [place] [address] .GFRon 08-16-2023 GFR 71 ml/min/1.73sqm Normal [facility] ([place]) Comment on above: Result Comment: GFR Population mean for , Non- Americans Ages 20-29 = 116 mL/min/1.73 sq.m. Ages 30-39 = 107 mL/min/1.73 sq.m. Ages 40-49 = 99 mL/min/1.73 sq.m. Ages 50-59 = 93 mL/min/1.73 sq.m. Ages 60-69 = 85 mL/min/1.73 sq.m. Ages 70+ = 75 mL/min/1.73 sq.m.Chronic Kidney Disease: Less than 60 mL/min/1.73 square metersEnd Stage Renal Disease: Less than 15 mL/min/1.73 square meters Performed By: #### C MP, ALC, GFR, CBC, DARRELL, JUAN CARLOS, ANEU, ACETA, ADIFF, TSH, FRANCINE ####Johny [address] [place], [place] [address] GFR Non- 59 ml/min/1.73sqm Normal [facility] ([place]) Comment on above: Result Comment: GFR Population mean for , Non- Americans Ages 20-29 = 116 mL/min/1.73 sq.m. Ages 30-39 = 107 mL/min/1.73 sq.m. Ages 40-49 = 99 mL/min/1.73 sq.m. Ages 50-59 = 93 mL/min/1.73 sq.m. Ages 60-69 = 85 mL/min/1.73 sq.m. Ages 70+ = 75 mL/min/1.73 sq.m.Chronic Kidney Disease: Less than 60 mL/min/1.73 square metersEnd Stage Renal Disease: Less than 15 mL/min/1.73 square meters Performed By: #### C MP, ALC, GFR, CBC, TROPHS, MDW, ANEU, ACETA, ADIFF, TSH, FRANCINE ####Johny [address] [place], [place] [address] .MDWon 08-16-2023 Monocyte Distribution Width 18.21 Normal 0.00-20.00 [facility] ([place]) Comment on above: Result Comment: For ED adult patients suspected of sepsis, MDW<=20.0 does not rule out sepsis or risk of sepsis Performed By: #### C MP, ALC, GFR, CBC, TROPHS, MDW, ANEU, ACETA, ADIFF, TSH, FRANCINE ####Johny [address] [place], [place] [address] .NEUABSon 08-16-2023 Neutrophil, Absolute 10.8 10 3/mcL High 2.9-6.2 [facility] ([place]) Comment on above: Performed By: #### C MP, ALC, GFR, CBC, TROPHS, MDW, ANEU, ACETA, ADIFF, TSH, FRANCINE ####Johny [address] [place], [place] [address] ACETAon 08-16-2023 Acetaminophen [Mass/Vol] 0.0 ug/mL Low 10.0-30.0 [facility] ([place]) Comment on above: Performed By: #### C MP, ALC, GFR, CBC, TROPHS, MDW, ANEU, ACETA, ADIFF, TSH, FRANCINE ####Johny [address] [place], [place] [address] Adelso 08-16-2023 Ethanol Level <3 Normal 0-3 [facility] ([place]) Comment on above: Performed By: #### C MP, ALC, GFR, CBC, TROPHS, MDW, ANEU, ACETA, ADIFF, TSH, FRANCINE ####Johny [address] [place], [place] [address] CBCon 08-16-2023 Erythrocyte distribution width (RBC) [Ratio] 18.9 % High 11.5-14.5 [facility] ([place]) Comment on above: Performed By: #### C MP, ALC, GFR, CBC, TROPHS, MDW, ANEU, ACETA, ADIFF, TSH, FRANCINE ####Johny [address] [place], [place] [address] Hematocrit (Bld) [Volume fraction] 33.6 % Low 37.0-47.0 [facility] ([place]) Comment on above: Performed By: #### C MP, ALC, GFR, CBC, TROPHS, MDW, ANEU, ACETA, ADIFF, TSH, FRANCINE ####Johny [address] [place], [place] [address] Hgb 10.7 G/dL Low 12.0-16.0 [facility] ([place]) Comment on above: Performed By: #### C MP, ALC, GFR, CBC, TROPHS, MDW, ANEU, ACETA, ADIFF, TSH, FRANCINE ####Johny [address] [place], [place] [address] MCH (RBC) [Entitic mass] 27.7 pg Normal 27.0-31.2 [facility] ([place]) Comment on above: Performed By: #### C MP, ALC, GFR, CBC, TROPHS, MDW, ANEU, ACETA, ADIFF, TSH, FRANCINE ####Johny [address] [place], [place] [address] MCHC 31.8 G/dL Low 33.0-37.0 [facility] ([place]) Comment on above: Performed By: #### C MP, ALC, GFR, CBC, TROPHS, MDW, ANEU, ACETA, ADIFF, TSH, FRANCINE ####Johny [address] [place], [place] [address] MCV (RBC) [Entitic vol] 87.2 fL Normal 80.0-94.0 [facility] ([place]) Comment on above: Performed By: #### C MP, ALC, GFR, CBC, TROPHS, MDW, ANEU, ACETA, ADIFF, TSH, FRANCINE ####Johny [address] [place], [place] [address] Platelet 415 10 3/mcL High 130-400 [facility] ([place]) Comment on above: Performed By: #### C MP, ALC, GFR, CBC, TROPHS, MDW, ANEU, ACETA, ADIFF, TSH, FRANCINE ####Johny [address] [place], [place] [address] Platelet mean volume (Bld) [Entitic vol] 7.5 fL Normal 7.4-10.4 [facility] ([place]) Comment on above: Performed By: #### C MP, ALC, GFR, CBC, TROPHS, MDW, ANEU, ACETA, ADIFF, TSH, FRANCINE ####Johny [address] [place], [place] [address] RBC 3.86 10 6/mcL Low 4.20-5.40 [facility] ([place]) Comment on above: Performed By: #### C MP, ALC, GFR, CBC, TROPHS, MDW, ANEU, ACETA, ADIFF, TSH, FRANCINE ####Johny [address] [place], [place] [address] WBC 13.4 10 3/mcL High 4.6-10.8 [facility] ([place]) Comment on above: Performed By: #### C MP, ALC, GFR, CBC, TROPHS, MDW, ANEU, ACETA, ADIFF, TSH, FRANCINE ####Johny [address] [place], [place] [address] CMPon 08-16-2023 Albumin Level 3.7 G/dL Normal 3.5-5.0 [facility] ([place]) Comment on above: Performed By: #### C MP, ALC, GFR, CBC, TROPHS, MDW, ANEU, ACETA, ADIFF, TSH, FRANCINE ####Johny [address] [place], [place] [address] Albumin/Globulin [Mass ratio] 0.9 {ratio} Low 1.1-2.5 [facility] ([place]) Comment on above: Performed By: #### C MP, ALC, GFR, CBC, TROPHS, MDW, ANEU, ACETA, ADIFF, TSH, FRANCINE ####[address] [place], [place] [address] ALP [Catalytic activity/Vol] 113 U/L Normal 40-135 [facility] ([place]) Comment on above: Performed By: #### C MP, ALC, GFR, CBC, TROPHS, MDW, ANEU, ACETA, ADIFF, TSH, FRANCINE ####Johny [address] [place], [place] [address] ALT [Catalytic activity/Vol] 44 U/L Normal 14-59 [facility] ([place]) Comment on above: Performed By: #### C MP, ALC, GFR, CBC, TROPHS, MDW, ANEU, ACETA, ADIFF, TSH, FRANCINE ####Johny [address] [place], [place] [address] AST [Catalytic activity/Vol] 39 U/L Normal 10-40 [facility] ([place]) Comment on above: Performed By: #### C MP, ALC, GFR, CBC, TROPHS, MDW, ANEU, ACETA, ADIFF, TSH, FRANCINE ####Johny [address] [place], [place] [address] Bili Total 0.5 mg/dL Normal 0.2-1.0 [facility] ([place]) Comment on above: Result Comment: Use of this assay is not recommended for patients undergoing treatment with eltrombopag due to the potential for falsely elevated results. Performed By: #### C MP, ALC, GFR, CBC, TROPHS, MDW, ANEU, ACETA, ADIFF, TSH, FRANCINE ####Johny [address] [place], [place] [address] BUN/Creatinine Ratio 19 ratio Normal 7-27 [facility] ([place]) Comment on above: Performed By: #### C MP, ALC, GFR, CBC, TROPHS, MDW, ANEU, ACETA, ADIFF, TSH, FRANCINE ####Johny [address] [place], [place] [address] Calcium [Mass/Vol] 9.4 mg/dL Normal 8.4-10.2 Replaced by [facility] ([place]) Comment on above: Performed By: #### C MP, ALC, GFR, CBC, DARRELL, JUAN CARLOS, ANEU, ACETA, ADIFF, TSH, FRANCINE ####Johny [address] [place], [place] [address] Chloride [Moles/Vol] 100 mmol/L Normal 98-107 [facility] ([place]) Comment on above: Performed By: #### C MP, ALC, GFR, CBC, BLAZES, MDW, ANEU, ACETA, ADIFF, TSH, FRANCINE ####Johny [address] [place], [place] [address] CO2 [Moles/Vol] 28 mmol/L Normal 22-29 [facility] ([place]) Comment on above: Performed By: #### C MP, ALC, GFR, CBC, DARRELL, W, ANEU, ACETA, ADIFF, TSH, FRANCINE ####Johny [address] [place], [place] [address] Creatinine [Mass/Vol] 0.99 mg/dL Normal 0.55-1.02 [facility] ([place]) Comment on above: Performed By: #### C MP, ALC, GFR, CBC, DARRELL, W, ANEU, ACETA, ADIFF, TSH, FRANCINE ####Johny [address] [place], [place] [address] Electrolyte Balance 10.0 mEq/L Normal 4.0-15.0 [facility] ([place]) Comment on above: Performed By: #### C MP, ALC, GFR, CBC, DARRELL, W, ANEU, ACETA, ADIFF, TSH, FRANCINE ####Johny [address] [place], [place] [address] Globulin 4.2 G/dL Normal [facility] ([place]) Comment on above: Performed By: #### C MP, ALC, GFR, CBC, DARRELL, W, ANEU, ACETA, ADIFF, TSH, FRANCINE ####Johny [address] [place], [place] [address] Glucose [Mass/Vol] 96 mg/dL Normal 70-105 Replaced by [facility] ([place]) Comment on above: Performed By: #### C MP, ALC, GFR, CBC, BLAZES, MDW, ANEU, ACETA, ADIFF, TSH, FRANCINE ####Johny [address] [place], [place] [address] Potassium [Moles/Vol] 4.5 mmol/L Normal 3.5-5.1 [facility] ([place]) Comment on above: Performed By: #### C MP, ALC, GFR, CBC, TROPHS, MDW, ANEU, ACETA, ADIFF, TSH, FRANCINE ####Johny [address] [place], [place] [address] Sodium [Moles/Vol] 138 mmol/L Normal 136-145 Replaced by [facility] ([place]) Comment on above: Performed By: #### C MP, ALC, GFR, CBC, TROPHS, MDW, ANEU, ACETA, ADIFF, TSH, FRANCINE ####Johny [address] [place], [place] [address] Total Protein 7.9 G/dL Normal 6.4-8.2 [facility] ([place]) Comment on above: Performed By: #### C MP, ALC, GFR, CBC, BLAZES, MDW, ANEU, ACETA, ADIFF, TSH, FRANCINE ####Johny [address] [place], [place] [address] Urea nitrogen [Mass/Vol] 19 mg/dL High 7-18 [facility] ([place]) Comment on above: Performed By: #### C MP, ALC, GFR, CBC, TROPHS, MDW, ANEU, ACETA, ADIFF, TSH, FRANCINE ####Johny [address] [place], [place] [address] CVFLURVon 08-16-2023 FLU A PCR Negative Normal Negative [facility] ([place]) Comment on above: Performed By: #### C VFLURV ####Johny [address] [place], [place] [address] FLU B PCR Negative Normal Negative [facility] ([place]) Comment on above: Performed By: #### C VFLURV ####[facility] [place], [place] [address] RSV PCR Negative Normal Negative [facility] ([place]) Comment on above: Performed By: #### C VFLURV ####Johny [address] [place], [place] [address] SARS-CoV-2 (COVID-19) RNA IZZY+probe Ql (Unsp spec) Negative Normal Negative [facility] ([place]) Comment on above: Result Comment: Resu lts from the Xpert Xpress CoV-2/Flu/RSV plus test should be correlated with the clinical history, epidemiological data, and other data available to the clinical evaluating the patient. Performance of the Xpert Xpress CoV-2/Flu/RSV plus test has only been established in nasopharyngeal swab specimen. Erroneous test results might occur from improper specimen collection, failure to follow the recommended sample collection, handling and storage procedures, technical error, or sample mix-up. False negative results may occur if a virus is present at a level below the analytical limit of detection. Viral nucleic acid may persist in vivo, independent of virus viability. Detection of analyte target(s) does not imply that the corresponding virus(es) are infectious or are the causative agents for clinical symptoms. Recent patient exposure to FluMist or other live attenuated influenza vaccines may cause inaccurate positive results. Performed By: #### C VFLURV ####Johny [address] [place], [place] [address] LABORATORYOrdered By: SYSTEM SYSTEM on 08-16-2023 Troponin I.cardiac DL <= 0.01 ng/mL [Mass/Vol] 11 ng/L Normal 0 - 51 ng/L AO ADM SS Comment on above: Interpretive Data: H igh Sensitive Troponin I Reference Ranges: Female: 0-51 ng/L Male: 0-76 ng/L Testing performed on [employer] using a homogeneous sandwich chemiluminescent immunoassay based on Solvate technology. Albumin BCP dye [Mass/Vol] 3.7 G/dL Normal 3.5 - 5.0 G/dL AO ADM SS Albumin/Globulin [Mass ratio] 0.9 {ratio} Low 1.1 - 2.5 ratio AO ADM SS ALP [Catalytic activity/Vol] 113 U/L Normal 40 - 135 U/L AO ADM SS ALT With P-5'-P [Catalytic activity/Vol] 44 U/L Normal 14 - 59 U/L AO ADM SS AST With P-5'-P [Catalytic activity/Vol] 39 U/L Normal 10 - 40 U/L AO ADM SS Basophil, Absolute 0.0 103/mcL Normal 0.0 - 0.2 10^3/mcL AO Workflow SS Basophils/100 WBC (Bld) 0.3 % Normal 0.0 - 2.5 % AO Workflow SS Bilirubin [Mass/Vol] 0.5 mg/dL Normal 0.2 - 1 .0 mg/dL AO ADM SS Comment on above: Interpretive Data: U se of this assay is not recommended for patients undergoing treatment with eltrombopag due to the potential for falsely elevated results. Calcium [Mass/Vol] 9.4 mg/dL Normal 8.4 - 10. 2 mg/dL AO ADM SS Chloride [Moles/Vol] 100 mmol/L Normal 98 - 10 7 mmol/L AO ADM SS CO2 [Moles/Vol] 28 mmol/L Normal 22 - 29 mmol/L AO ADM SS Creatinine [Mass/Vol] 0.99 mg/dL Normal 0.55 - 1.02 mg/dL AO ADM SS Electrolyte Balance 10.0 mEq/L Normal 4.0 - 15 .0 mEq/L AO ADM SS Eosinophil, Absolute 0.0 103/mcL Normal 0.0 - 0 .4 10^3/mcL AO Workflow SS Eosinophils/100 WBC (Bld) 0.0 % Normal 0.0 - 7.0 % AO Workflow SS Erythrocyte distribution width (RBC) [Ratio] 18.9 % High 11.5 - 14.5 % AO Workflow SS Ethanol [Mass/Vol] mg/dL Normal 0 - 3 mg/dL AO AD M SS GFR/1.73 sq M.predicted among blacks MDRD (S/P/Bld) [Vol rate/Area] 71 ml/min/1.73sqm Invalid Interpretation Code AO Chemistry S Comment on above: Interpretive Data: GFR Population mean for , Non- Americans Ages 20-29 = 116 mL/min/1.73 sq.m. Ages 30-39 = 107 mL/min/1.73 sq.m. Ages 40-49 = 99 mL/min/1.73 sq.m. Ages 50-59 = 93 mL/min/1.73 sq.m. Ages 60-69 = 85 mL/min/1.73 sq.m. Ages 70+ = 75 mL/min/1.73 sq.m. Chronic Kidney Disease: Less than 60 mL/min/1.73 square meters End Stage Renal Disease: Less than 15 mL/min/1.73 square meters GFR/1.73 sq M.predicted among non-blacks MDRD (S/P/Bld) [Vol rate/Area] 59 ml/min/1.73sqm Invalid Interpretation Code AO Chemistry S Comment on above: Interpretive Data: GFR Population mean for , Non- Americans Ages 20-29 = 116 mL/min/1.73 sq.m. Ages 30-39 = 107 mL/min/1.73 sq.m. Ages 40-49 = 99 mL/min/1.73 sq.m. Ages 50-59 = 93 mL/min/1.73 sq.m. Ages 60-69 = 85 mL/min/1.73 sq.m. Ages 70+ = 75 mL/min/1.73 sq.m. Chronic Kidney Disease: Less than 60 mL/min/1.73 square meters End Stage Renal Disease: Less than 15 mL/min/1.73 square meters Globulin 4.2 G/dL Invalid Interpretation Code AO ADM SS Glucose [Mass/Vol] 96 mg/dL Normal 70 - 105 mg/dL AO ADM SS Hematocrit (Bld) [Volume fraction] 33.6 % Low 37.0 - 47.0 % AO Workflow SS Hemoglobin (Bld) [Mass/Vol] 10.7 G/dL Low 12.0 - 16.0 G/dL AO Workflow SS Lymphocyte, Absolute 1.5 103/mcL Normal 0.8 - 3 .9 10^3/mcL AO Workflow SS Lymphocytes/100 WBC (Bld) 11.1 % Normal 10.0 - 50.0 % AO Workflow SS MCH (RBC) [Entitic mass] 27.7 pg Normal 27.0 - 31.2 pg AO Workflow SS MCHC 31.8 G/dL Low 33.0 - 37.0 G/dL AO Workflow SS MCV (RBC) [Entitic vol] 87.2 fL Normal 80.0 - 94.0 fL AO Workflow SS Monocyte distribution width Auto (Bld) [Entitic vol] 18.21 1 Normal 0.00 - 20.00 AO Workflow SS Comment on above: Result Comment: For ED adult patients suspected of sepsis, MDW<=20.0 does not rule out sepsis or risk of sepsis Monocyte, Absolute 1.0 103/mcL Normal 0.2 - 1.0 10^3/mcL AO Workflow SS Monocytes/100 WBC (Bld) 7.8 % Normal 1.7 - 13.0 % AO Workflow SS Neutrophil, Absolute 10.8 103/mcL High 2.9 - 6 .2 10^3/mcL AO Workflow SS Neutrophils/100 WBC (Bld) 80.8 % High 37.0 - 80.0 % AO Workflow SS Platelet mean volume (Bld) [Entitic vol] 7.5 fL Normal 7.4 - 10.4 fL AO Workflow SS Platelets (Bld) [#/Vol] 415 103/mcL High 130 - 400 10^3/mcL AO Workflow SS Potassium [Moles/Vol] 4.5 mmol/L Normal 3.5 - 5.1 mmol/L AO ADM SS Protein [Mass/Vol] 7.9 G/dL Normal 6.4 - 8.2 G/dL AO ADM SS RBC (Bld) [#/Vol] 3.86 106/mcL Low 4.20 - 5.4 0 10^6/mcL AO Workflow SS Salicylates [Mass/Vol] 0.8 mg/dL Low 2.8 - 20.0 mg/dL AO ADM SS Sodium [Moles/Vol] 138 mmol/L Normal 136 - 145 mmol/L AO ADM SS Troponin I.cardiac DL <= 0.01 ng/mL [Mass/Vol] 10 ng/L Normal 0 - 51 ng/L AO ADM SS Comment on above: Interpretive Data: H igh Sensitive Troponin I Reference Ranges: Female: 0-51 ng/L Male: 0-76 ng/L Testing performed on [employer] using a homogeneous sandwich chemiluminescent immunoassay based on Solvate technology. TSH Qn 19.00 m[IU]/L High 0.36 - 3.74 mcIU/mL AO ADM SS Urea nitrogen [Mass/Vol] 19 mg/dL High 7 - 18 mg/dL AO ADM SS Urea nitrogen/Creatinine [Mass ratio] 19 ratio Normal 7 - 27 ratio AO ADM SS WBC (Bld) [#/Vol] 13.4 103/mcL High 4.6 - 10.8 10^3/mcL AO Workflow SS LABORATORYOrdered By: Chad Mata on 08-16-2023 Amphetamines Screen Ql (U) Negative *NA* (08/16/23 3:48 PM) Invalid Interpretation Code Negative AO ADM SS Barbiturates Screen Ql (U) Negative *NA* (08/16/23 3:48 PM) Invalid Interpretation Code Negative AO ADM SS Benzodiazepines Ql (U) Negative *NA* (08/16/23 3:48 PM) Invalid Interpretation Code Negative AO ADM SS Benzoylecgonine Screen Ql (U) Negative *NA* (08/16/23 3:48 PM) Invalid Interpretation Code Negative AO ADM SS Cannabinoids Screen Ql (U) Negative *NA* (08/16/23 3:48 PM) Invalid Interpretation Code Negative AO ADM SS Methadone Screen Ql (U) Negative *NA* (08/16/23 3:48 PM) Invalid Interpretation Code Negative AO ADM SS Opiates Screen Ql (U) Negative *NA* (08/16/23 3:48 PM) Invalid Interpretation Code Negative AO ADM SS Phencyclidine Ql (U) Negative *NA* (08/16/23 3:48 PM) Invalid Interpretation Code Negative AO ADM SS Acetaminophen [Mass/Vol] 0.0 ug/mL Low 10.0 - 30.0 mcg/mL AO Chemistry S LABORATORYOrdered By: Nitin Tenorio on 08-16-2023 Appearance (U) Clear (08/16/23 3:48 PM) Normal Clear AO Auto Urine SS Bilirubin Ql (U) Negative (08/16/23 3:48 PM) Normal Negative AO Auto Urine SS Color (U) Yellow (08/16/23 3:48 PM) Normal AO Auto Urine SS Glucose Test strip (U) [Mass/Vol] Negative Normal Negative AO Auto Urine SS Hemoglobin Auto test strip (U) [Mass/Vol] Negative (08/16/23 3:48 PM) Normal Negative AO Auto Urine SS Ketones Ql (U) Negative Normal Negative AO Auto Ur ine SS UA Leuk Est Negative (08/16/23 3:48 PM) Normal Negative AO Auto Urine SS UA Nitrite Negative (08/16/23 3:48 PM) Normal Negative AO Auto Urine SS UA pH 6.0 (08/16/23 3:48 PM) Normal 5.0 - 8.0 AO Auto Urine SS UA Protein Negative Normal Negative AO Auto Urine SS UA Spec Grav 1.020 (08/16/23 3:48 PM) Normal 1.015-1.025 AO Auto Urine SS UA Specimen Type Not Given (08/16/23 3:48 PM) Normal AO Auto Urine SS UA Urobilinogen 0.2 E.U./dL Normal 0.2-1.0 AO Auto Urine SS Urine Drugs screened: See Below 5 (08/16/23 3:48 PM) Normal AO Chemistry S Comment on above: Interpretive Data: T his drug screen is a presumptive screening only. No confirmation will be performed unless requested. Drugs screened include: Threshold Amphetamines/Methamphetamines 1,000 ng/mL Barbiturates 200 ng/mL Benzodiazepine metabolites 200 ng/mL Cannabinoids (THC metabolites) 50 ng/mL Cocaine 300 ng/mL Opiates 300 ng/mL Methadone 300 ng/mL Phencyclidine (PCP) 25 ng/mL Testing has been performed FOR MEDICAL PURPOSES ONLY. FLUAV RNA IZZY+probe Ql (Resp) Negative (08/16/23 1:58 PM) Normal Negative AO Auto Urine SS FLUBV RNA IZZY+probe Ql (Resp) Negative (08/16/23 1:58 PM) Normal Negative AO Auto Urine SS RSV RNA IZZY+probe Ql (Resp) Negative (08/16/23 1:58 PM) Normal Negative AO Auto Urine SS SARS-CoV-2 (COVID-19) RNA IZZY+probe Ql (Resp) Negative 6 (08/16/23 1:58 PM) Normal Negative AO Auto Urine SS Comment on above: Interpretive Data: R esults from the Xpert Xpress CoV-2/Flu/RSV plus test should be correlated with the clinical history, epidemiological data, and other data available to the clinical evaluating the patient. Performance of the Xpert Xpress CoV-2/Flu/RSV plus test has only been established in nasopharyngeal swab specimen. Erroneous test results might occur from improper specimen collection, failure to follow the recommended sample collection, handling and storage procedures, technical error, or sample mix-up. False negative results may occur if a virus is present at a level below the analytical limit of detection. Viral nucleic acid may persist in vivo, independent of virus viability. Detection of analyte target(s) does not imply that the corresponding virus(es) are infectious or are the causative agents for clinical symptoms. Recent patient exposure to FluMist or other live attenuated influenza vaccines may cause inaccurate positive results. [facility] 08-16-2023 Salicylate Level 0.8 mg/dL Low 2.8-20.0 [facility] ([place]) Comment on above: Performed By: #### C MP, ALC, GFR, CBC, BLAZES, JUAN CARLOS, ANEU, ACETA, ADIFF, TSH, FRANCINE ####Johny [address] [place], [place] [address] TROPHSon 08-16-2023 High Sensitivity Troponin I 11 ng/L Normal 0-51 [facility] ([place]) Comment on above: Result Comment: High Sensitive Troponin I Reference Ranges:Female: 0-51 ng/LMale: 0-76 ng/LTesting performed on Dimension EXL using a homogeneous sandwich chemiluminescent immunoassay based on Solvate technology. Performed By: #### T DENNYS ####Johny [address] [place] [address] High Sensitivity Troponin I 10 ng/L Normal 0-51 [facility] ([place]) Comment on above: Result Comment: High Sensitive Troponin I Reference Ranges:Female: 0-51 ng/LMale: 0-76 ng/LTesting performed on Dimension EXL using a homogeneous sandwich chemiluminescent immunoassay based on Solvate technology. Performed By: #### C MP, ALC, GFR, CBC, DARRELL, JUAN CARLOS, ANEU, ACETA, ADIFF, TSH, FRANCINE ####Johny [address] [place] [address] TSHon 08-16-2023 TSH Qn 19.00 m[IU]/L High 0.36-3.74 [facility] ([place]) Comment on above: Performed By: #### C MP, ALC, GFR, CBC, DARRELL, W, ANEU, ACETA, ADIFF, TSH, FRANCINE ####Johny [address] [place], [place] [address] UDRUGon 08-16-2023 Amphetamine (u) Negative Normal Negative [facility] ([place]) Comment on above: Performed By: #### U ADIP, UDRUG ####Johny [address] [place], [place] [address] Barbiturate (u) Negative Normal Negative [facility] ([place]) Comment on above: Performed By: #### U ADIP, UDRUG ####Johny [address] [place], [place] [address] Benzodiazepine (u) Negative Normal Negative Replaced by [facility] ([place]) Comment on above: Performed By: #### U ADIP, UDRUG ####Johny [address] [place], [place] [address] Cannabinoid (u) Negative Normal Negative [facility] ([place]) Comment on above: Performed By: #### U ADIP, UDRUG ####Johny [address] [place], [place] [address] Cocaine Ql (U) Negative Normal Negative [facility] ([place]) Comment on above: Performed By: #### U ADIP, UDRUG ####Johny [address] [place], [place] [address] Methadone Ql (U) Negative Normal Negative [facility] ([place]) Comment on above: Performed By: #### U ADIP, UDRUG ####Johny Hrozllbt[address] [place], [place] [address] Opiate (u) Negative Normal Negative [facility] ([place]) Comment on above: Performed By: #### U ADIP, UDRUG ####Johny Fzyvrfth[address] [place], [place] [address] PCP (u) Negative Normal Negative [facility] ([place]) Comment on above: Performed By: #### U ADIP, UDRUG ####Johny Sy[address]wh[address] [place], [place] [address] Urine Drugs screened: See Below Normal [facility] ([place]) Comment on above: Result Comment: This drug screen is a presumptive screening only.No confirmation will be performed unless requested.Drugs screened include: ThresholdAmphetamines/Methamphetamines 1,000 ng/mLBarbiturates 200 ng/mLBenzodiazepine metabolites 200 ng/mLCannabinoids (THC metabolites) 50 ng/mLCocaine 300 ng/mLOpiates 300 ng/mLMethadone 300 ng/mLPhencyclidine (PCP) 25 ng/mLTesting has been performed FOR MEDICAL PURPOSES ONLY. Performed By: #### U ADIP, UDRUG ####Johny [address] [place], [place] [address] URINon 08-16-2023 Color (U) Yellow Normal [facility] ([place]) Comment on above: Performed By: #### U ADIP, UDRUG ####Johny Y[address]te[address] [place], [place] [address] Glucose (U) [Mass/Vol] Negative Normal Negative [facility] ([place]) Comment on above: Performed By: #### U ADIP, UDRUG ####Johny Gf[address]yplh[address] [place], [place] [address] Ketones Ql (U) Negative Normal Negative [facility] ([place]) Comment on above: Performed By: #### U ADIP, UDRUG ####Johny R[address]qfbwh[address] [place], [place] [address] UA Appear Clear Normal Clear [facility] ([place]) Comment on above: Performed By: #### U ADIP, UDRUG ####Johny [address] [place], [place] [address] UA Blood Negative Normal Negative [facility] ([place]) Comment on above: Performed By: #### U ADIP, UDRUG ####Johny Nleeauci[address] [place], [place] [address] UA Leuk Est Negative Normal Negative [facility] ([place]) Comment on above: Performed By: #### U ADIP, UDRUG ####Johny [address] [place], [place] [address] UA Nitrite Negative Normal Negative [facility] ([place]) Comment on above: Performed By: #### U ADIP, UDRUG ####Johny Cwrcgbph[address] [place], [place] [address] UA pH 6.0 Normal 5.0 - 8.0 [facility] ([place]) Comment on above: Performed By: #### U ADIP, UDRUG ####Johny [address] [place], [place] [address] UA Protein Negative Normal Negative [facility] ([place]) Comment on above: Performed By: #### U ADIP, UDRUG ####Johny Nurjmjpw[address] [place], [place] [address] UA Spec Grav 1.020 Normal 1.015-1.025 [facility] ([place]) Comment on above: Performed By: #### U ADIP, UDRUG ####Johny [address]qmwulir[address] [place], [place] [address] UA Specimen Type Not Given Normal [facility] ([place]) Comment on above: Performed By: #### U ADIP, UDRUG ####Johny [address] [place], [place] [address] UA Urobilinogen 0.2 E.U./dL Normal 0.2-1.0 [facility] ([place]) Comment on above: Performed By: #### U ADIP, UDRUG ####[address] [place], [place] [address] Urobilinogen (U) [Mass/Vol] Negative Normal Negative [facility] ([place]) Comment on above: Performed By: #### U ADIP, UDRUG ####Johny [address] [place], [place] [address] XR ABDOMEN APon 08-16-2023 XR ABDOMEN AP Normal [facility] ([place]) XR CHEST 1 VIEWon 08-16-2023 XR CHEST 1 VIEW Normal [facility] ([place]) .Auto Diffon 08-14-2023 Basophil, Absolute 0.1 10 3/mcL Normal 0.0-0.2 [facility] ([place]) Comment on above: Performed By: #### A DIFF, PBNP, CBC, BMP, TROPHS, GFR, MORPH, MDW, ANEU ####Johny [address]lr[address] [place], [place] [address] Basophils/100 WBC (Bld) 0.4 % Normal 0.0-2.5 [facility] ([place]) Comment on above: Performed By: #### A DIFF, PBNP, CBC, BMP, TROPHS, GFR, MORPH, MDW, ANEU ####Johny [address] [place], [place] [address] Eosinophil, Absolute 0.0 10 3/mcL Normal 0.0-0.4 [facility] [place]) Comment on above: Performed By: #### A DIFF, PBNP, CBC, BMP, TROPHS, GFR, MORPH, MDW, ANEU ####Johny [address] [place], [place] [address] Eosinophils/100 WBC (Bld) 0.0 % Normal 0.0-7.0 [facility] ([place]) Comment on above: Performed By: #### A DIFF, PBNP, CBC, BMP, TROPHS, GFR, MORPH, MDW, ANEU ####Johny [address] [place], [place] [address] Lymphocyte, Absolute 1.0 10 3/mcL Normal 0.8-3.9 [facility] [place]) Comment on above: Performed By: #### A DIFF, PBNP, CBC, BMP, TROPHS, GFR, MORPH, MDW, ANEU ####Johny [address] [place], [place] [address] Lymphocytes/100 WBC (Bld) 7.4 % Low 10.0-50.0 [facility] ([place]) Comment on above: Performed By: #### A DIFF, PBNP, CBC, BMP, TROPHS, GFR, MORPH, MDW, ANEU ####Johny [address]wk[address] [place], [place] [address] Monocyte, Absolute 0.7 10 3/mcL Normal 0.2-1.0 [facility] ([place]) Comment on above: Performed By: #### A DIFF, PBNP, CBC, BMP, TROPHS, GFR, MORPH, MDW, ANEU ####Johny [address] [place], [place] [address] Monocytes/100 WBC (Bld) 5.4 % Normal 1.7-13.0 [facility] ([place]) Comment on above: Performed By: #### A DIFF, PBNP, CBC, BMP, TROPHS, GFR, MORPH, MDW, ANEU ####Johny [address] [place], [place] [address] Neutrophils/100 WBC (Bld) 86.8 % High 37.0-80.0 [facility] ([place]) Comment on above: Performed By: #### A DIFF, PBNP, CBC, BMP, TROPHS, GFR, MORPH, MDW, ANEU ####Johny [address] [place], [place] [address] .GFRon 08-14-2023 GFR 66 ml/min/1.73sqm Normal [facility] ([place]) Comment on above: Result Comment: GFR Population mean for , Non- Americans Ages 20-29 = 116 mL/min/1.73 sq.m. Ages 30-39 = 107 mL/min/1.73 sq.m. Ages 40-49 = 99 mL/min/1.73 sq.m. Ages 50-59 = 93 mL/min/1.73 sq.m. Ages 60-69 = 85 mL/min/1.73 sq.m. Ages 70+ = 75 mL/min/1.73 sq.m.Chronic Kidney Disease: Less than 60 mL/min/1.73 square metersEnd Stage Renal Disease: Less than 15 mL/min/1.73 square meters Performed By: #### A DIFF, PBNP, CBC, BMP, TROPHS, GFR, JUAN CARLOS FERNANDEZ, ANEU ####Johny [address] [place], [place] [address] GFR Non- 54 ml/min/1.73sqm Normal [facility] ([place]) Comment on above: Result Comment: GFR Population mean for , Non- Americans Ages 20-29 = 116 mL/min/1.73 sq.m. Ages 30-39 = 107 mL/min/1.73 sq.m. Ages 40-49 = 99 mL/min/1.73 sq.m. Ages 50-59 = 93 mL/min/1.73 sq.m. Ages 60-69 = 85 mL/min/1.73 sq.m. Ages 70+ = 75 mL/min/1.73 sq.m.Chronic Kidney Disease: Less than 60 mL/min/1.73 square metersEnd Stage Renal Disease: Less than 15 mL/min/1.73 square meters Performed By: #### A DIFF, PBNP, CBC, BMP, TROPHS, GFR, JIM, JUAN CARLOS, ANEU ####Johny [address] [place], [place] [address] .MDWon 08-14-2023 Monocyte Distribution Width 19.45 Normal 0.00-20.00 [facility] ([place]) Comment on above: Result Comment: For ED adult patients suspected of sepsis, MDW<=20.0 does not rule out sepsis or risk of sepsis Performed By: #### A DIFF, PBNP, CBC, BMP, TROPHS, GFR, MORPH, MDW, ANEU ####Johny [address] [place], [place] [address] .Morphon 08-14-2023 Platelet Estimate Normal Normal [facility] ([place]) Comment on above: Performed By: #### A DIFF, PBNP, CBC, BMP, TROPHS, GFR, MORPH, MDW, ANEU ####Johny [address] [place], [place] [address] RBC morphology finding Nom (Bld) Normal Normal [facility] ([place]) Comment on above: Performed By: #### A DIFF, PBNP, CBC, BMP, TROPHS, GFR, MORPH, MDW, ANEU ####Johny [address] [place], [place] [address] .NEUABSon 08-14-2023 Neutrophil, Absolute 12.0 10 3/mcL High 2.9-6.2 [facility]) Comment on above: Performed By: #### A DIFF, PBNP, CBC, BMP, TROPHS, GFR, MORPH, MDW, ANEU ####Johny [address] [place], [place] [address] BMPon 08-14-2023 BUN/Creatinine Ratio 12 ratio Normal 7-27 [facility] ([place]) Comment on above: Performed By: #### A DIFF, PBNP, CBC, BMP, TROPHS, GFR, MORPH, MDW, ANEU ####Johny [address] [place], [place] [address] Calcium [Mass/Vol] 9.0 mg/dL Normal 8.4-10.2 Replaced by [facility] ([place]) Comment on above: Performed By: #### A DIFF, PBNP, CBC, BMP, TROPHS, GFR, MORPH, MDW, ANEU ####Johny [address] [place], [place] [address] Chloride [Moles/Vol] 101 mmol/L Normal 98-107 [facility] ([place]) Comment on above: Performed By: #### A DIFF, PBNP, CBC, BMP, TROPHS, GFR, MORPH, MDW, ANEU ####Johny [address] [place], [place] [address] CO2 [Moles/Vol] 29 mmol/L Normal 22-29 [facility] ([place]) Comment on above: Performed By: #### A DIFF, PBNP, CBC, BMP, TROPHS, GFR, MORPH, MDW, ANEU ####Johny [address] [place], [place] [address] Creatinine [Mass/Vol] 1.06 mg/dL High 0.55-1.02 [facility] ([place]) Comment on above: Performed By: #### A DIFF, PBNP, CBC, BMP, TROPHS, GFR, MORPH, MDW, ANEU ####Johny [address] [place], [place] [address] Electrolyte Balance 9.0 mEq/L Normal 4.0-15.0 [facility] ([place]) Comment on above: Performed By: #### A DIFF, PBNP, CBC, BMP, TROPHS, GFR, MORPH, MDW, ANEU ####Johny [address] [place], [place] [address] Glucose [Mass/Vol] 127 mg/dL High 70-105 Replaced by [facility] ([place]) Comment on above: Performed By: #### A DIFF, PBNP, CBC, BMP, TROPHS, GFR, MORPH, MDW, ANEU ####Johny [address] [place], [place] [address] Potassium [Moles/Vol] 4.1 mmol/L Normal 3.5-5.1 [facility] ([place]) Comment on above: Performed By: #### A DIFF, PBNP, CBC, BMP, TROPHS, GFR, MORPH, MDW, ANEU ####Johny [address] [place], [place] [address] Sodium [Moles/Vol] 139 mmol/L Normal 136-145 Replaced by [facility] ([place] Comment on above: Performed By: #### A DIFF, PBNP, CBC, BMP, TROPHS, GFR, MORPH, MDW, ANEU ####Johny [address] [place], [place] [address] Urea nitrogen [Mass/Vol] 13 mg/dL Normal 7-18 [facility] ([place]) Comment on above: Performed By: #### A DIFF, PBNP, CBC, BMP, TROPHS, GFR, MORPH, MDW, ANEU ####Johny [address] [place], [place] [address] CBCon 08-14-2023 Platelet 328 10 3/mcL Normal 130-400 [facility] ([place]) Comment on above: Performed By: #### A DIFF, PBNP, CBC, BMP, TROPHS, GFR, MORPH, MDW, ANEU ####Johny [address] [place], [place] [address] Platelet mean volume (Bld) [Entitic vol] 8.6 fL Normal 7.4-10.4 [facility] ([place]) Comment on above: Performed By: #### A DIFF, PBNP, CBC, BMP, TROPHS, GFR, MORPH, MDW, ANEU ####Johny [address] [place], [place] [address] Erythrocyte distribution width (RBC) [Ratio] 19.2 % High 11.5-14.5 [facility] ([place]) Comment on above: Performed By: #### A DIFF, PBNP, CBC, BMP, TROPHS, GFR, MORPH, MDW, ANEU ####Johny [address] [place], [place] [address] Hematocrit (Bld) [Volume fraction] 35.1 % Low 37.0-47.0 [facility] ([place]) Comment on above: Performed By: #### A DIFF, PBNP, CBC, BMP, TROPHS, GFR, MORPH, MDW, ANEU ####Johny [address] [place], [place] [address] Hgb 10.9 G/dL Low 12.0-16.0 [facility] ([place]) Comment on above: Performed By: #### A DIFF, PBNP, CBC, BMP, TROPHS, GFR, MORPH, MDW, ANEU ####Johny [address] [place], [place] [address] MCH (RBC) [Entitic mass] 27.4 pg Normal 27.0-31.2 [facility] ([place]) Comment on above: Performed By: #### A DIFF, PBNP, CBC, BMP, TROPHS, GFR, MORPH, MDW, ANEU ####Johny [address] [place], [place] [address] MCHC 31.1 G/dL Low 33.0-37.0 [facility] ([place]) Comment on above: Performed By: #### A DIFF, PBNP, CBC, BMP, TROPHS, GFR, MORPH, MDW, ANEU ####Johny [address] [place], [place] [address] MCV (RBC) [Entitic vol] 88.2 fL Normal 80.0-94.0 [facility] ([place]) Comment on above: Performed By: #### A DIFF, PBNP, CBC, BMP, TROPHS, GFR, MORPH, MDW, ANEU ####Johny [address] [place], [place] [address] RBC 3.98 10 6/mcL Low 4.20-5.40 [facility] ([place]) Comment on above: Performed By: #### A DIFF, PBNP, CBC, BMP, TROPHS, GFR, MORPH, MDW, ANEU ####Johny [address] [place], [place] [address] WBC 13.9 10 3/mcL High 4.6-10.8 [facility] ([place]) Comment on above: Performed By: #### A DIFF, PBNP, CBC, BMP, TROPHS, GFR, MORPH, MDW, ANEU ####Johny [address] [place], [place] [address] LABORATORYOrdered By: SYSTEM SYSTEM on 08-14-2023 Basophil, Absolute 0.1 103/mcL Normal 0.0 - 0.2 10^3/mcL AO Workflow SS Basophils/100 WBC (Bld) 0.4 % Normal 0.0 - 2.5 % AO Workflow SS Calcium [Mass/Vol] 9.0 mg/dL Normal 8.4 - 10. 2 mg/dL AO ADM SS Chloride [Moles/Vol] 101 mmol/L Normal 98 - 10 7 mmol/L AO ADM SS CO2 [Moles/Vol] 29 mmol/L Normal 22 - 29 mmol/L AO ADM SS Creatinine [Mass/Vol] 1.06 mg/dL High 0.55 - 1.02 mg/dL AO ADM SS Electrolyte Balance 9.0 mEq/L Normal 4.0 - 15 .0 mEq/L AO ADM SS Eosinophil, Absolute 0.0 103/mcL Normal 0.0 - 0 .4 10^3/mcL AO Workflow SS Eosinophils/100 WBC (Bld) 0.0 % Normal 0.0 - 7.0 % AO Workflow SS Erythrocyte distribution width (RBC) [Ratio] 19.2 % High 11.5 - 14.5 % AO Workflow SS GFR/1.73 sq M.predicted among blacks MDRD (S/P/Bld) [Vol rate/Area] 66 ml/min/1.73sqm Invalid Interpretation Code AO Chemistry S Comment on above: Interpretive Data: GFR Population mean for , Non- Americans Ages 20-29 = 116 mL/min/1.73 sq.m. Ages 30-39 = 107 mL/min/1.73 sq.m. Ages 40-49 = 99 mL/min/1.73 sq.m. Ages 50-59 = 93 mL/min/1.73 sq.m. Ages 60-69 = 85 mL/min/1.73 sq.m. Ages 70+ = 75 mL/min/1.73 sq.m. Chronic Kidney Disease: Less than 60 mL/min/1.73 square meters End Stage Renal Disease: Less than 15 mL/min/1.73 square meters GFR/1.73 sq M.predicted among non-blacks MDRD (S/P/Bld) [Vol rate/Area] 54 ml/min/1.73sqm Invalid Interpretation Code AO Chemistry S Comment on above: Interpretive Data: GFR Population mean for , Non- Americans Ages 20-29 = 116 mL/min/1.73 sq.m. Ages 30-39 = 107 mL/min/1.73 sq.m. Ages 40-49 = 99 mL/min/1.73 sq.m. Ages 50-59 = 93 mL/min/1.73 sq.m. Ages 60-69 = 85 mL/min/1.73 sq.m. Ages 70+ = 75 mL/min/1.73 sq.m. Chronic Kidney Disease: Less than 60 mL/min/1.73 square meters End Stage Renal Disease: Less than 15 mL/min/1.73 square meters Glucose [Mass/Vol] 127 mg/dL High 70 - 105 mg/dL AO ADM SS Hematocrit (Bld) [Volume fraction] 35.1 % Low 37.0 - 47.0 % AO Workflow SS Hemoglobin (Bld) [Mass/Vol] 10.9 G/dL Low 12.0 - 16.0 G/dL AO Workflow SS Lymphocyte, Absolute 1.0 103/mcL Normal 0.8 - 3 .9 10^3/mcL AO Workflow SS Lymphocytes/100 WBC (Bld) 7.4 % Low 10.0 - 50.0 % AO Workflow SS MCH (RBC) [Entitic mass] 27.4 pg Normal 27.0 - 31.2 pg AO Workflow SS MCHC 31.1 G/dL Low 33.0 - 37.0 G/dL AO Workflow SS MCV (RBC) [Entitic vol] 88.2 fL Normal 80.0 - 94.0 fL AO Workflow SS Monocyte distribution width Auto (Bld) [Entitic vol] 19.45 1 Normal 0.00 - 20.00 AO Workflow SS Comment on above: Result Comment: For ED adult patients suspected of sepsis, MDW<=20.0 does not rule out sepsis or risk of sepsis Monocyte, Absolute 0.7 103/mcL Normal 0.2 - 1.0 10^3/mcL AO Workflow SS Monocytes/100 WBC (Bld) 5.4 % Normal 1.7 - 13.0 % AO Workflow SS Natriuretic peptide.B prohormone N-Terminal [Mass/Vol] 186 pg/mL High 0 - 125 pg/mL AO ADM SS Comment on above: Interpretive Data: N T-proBNP results of less than 300 pg/mL effectively rules out acute congestive heart failure with 99% negative predictive value. Neutrophil, Absolute 12.0 103/mcL High 2.9 - 6 .2 10^3/mcL AO Workflow SS Neutrophils/100 WBC (Bld) 86.8 % High 37.0 - 80.0 % AO Workflow SS Platelet Estimate Normal *NA* (08/14/23 5:51 PM) Invalid Interpretation Code AO Workflow SS Platelet mean volume (Bld) [Entitic vol] 8.6 fL Normal 7.4 - 10.4 fL AO Workflow SS Platelets (Bld) [#/Vol] 328 103/mcL Normal 130 - 400 10^3/mcL AO Workflow SS Potassium [Moles/Vol] 4.1 mmol/L Normal 3.5 - 5.1 mmol/L AO ADM SS RBC (Bld) [#/Vol] 3.98 106/mcL Low 4.20 - 5.4 0 10^6/mcL AO Workflow SS RBC morphology finding Nom (Bld) Normal *NA* (08/14/23 5:51 PM) Invalid Interpretation Code AO Workflow SS Sodium [Moles/Vol] 139 mmol/L Normal 136 - 145 mmol/L AO ADM SS Troponin I.cardiac DL <= 0.01 ng/mL [Mass/Vol] 7 ng/L Normal 0 - 51 ng/L AO ADM SS Comment on above: Interpretive Data: H igh Sensitive Troponin I Reference Ranges: Female: 0-51 ng/L Male: 0-76 ng/L Testing performed on [employer] EXL using a homogeneous sandwich chemiluminescent immunoassay based on Sol[employer] technology. Urea nitrogen [Mass/Vol] 13 mg/dL Normal 7 - 18 mg/dL AO ADM SS Urea nitrogen/Creatinine [Mass ratio] 12 ratio Normal 7 - 27 ratio AO ADM SS WBC (Bld) [#/Vol] 13.9 103/mcL High 4.6 - 10.8 10^3/mcL AO Workflow SS PBNPon 08-14-2023 Natriuretic peptide B (Bld) [Mass/Vol] 186 pg/mL High 0-125 [facility] ([place]) Comment on above: Result Comment: NT-p roBNP results of less than 300 pg/mL effectivelyrules out acute congestive heart failure with 99% negative predictive value. Performed By: #### A DIFF, PBNP, CBC, BMP, TROPHS, GFR, JUAN CARLOS FERNANDEZ, ANEU ####Johny [address] [place], [place] [address] Formerly [facility] 08-14-2023 High Sensitivity Troponin I 7 ng/L Normal 0-51 [facility] ([place]) Comment on above: Result Comment: High Sensitive Troponin I Reference Ranges:Female: 0-51 ng/LMale: 0-76 ng/LTesting performed on [employer] EXL using a homogeneous sandwich chemiluminescent immunoassay based on [employer] technology. Performed By: #### A DIFF, PBNP, CBC, BMP, TROPHS, GFR, JUAN CARLOS FERNANDEZ, ANEU ####Johny [address] [place], [place] [address] XR CHEST 1 VIEWon 08-14-2023 XR CHEST 1 VIEW Normal [facility] ([place]) .Auto Diffon 08-06-2023 Basophil, Absolute 0.1 10 3/mcL Normal 0.0-0.2 [facility] ([place]) Comment on above: Performed By: #### B MP, ADIFF, CBC, TROPHS, ANEU, MDW, GFR ####Johny [address] [place], [place] [address] Basophils/100 WBC (Bld) 0.7 % Normal 0.0-2.5 [facility] ([place]) Comment on above: Performed By: #### B MP, ADIFF, CBC, TROPHS, ANEU, MDW, GFR ####Johny [address] [place], [place] [address] Eosinophil, Absolute 0.5 10 3/mcL High 0.0-0.4 [facility] ([place]) Comment on above: Performed By: #### B MP, ADIFF, CBC, TROPHS, ANEU, MDW, GFR ####Johny [address] [place], [place] [address] Eosinophils/100 WBC (Bld) 7.0 % Normal 0.0-7.0 [facility] ([place]) Comment on above: Performed By: #### B MP, ADIFF, CBC, TROPHS, ANEU, MDW, GFR ####Johny [address] [place], [place] [address] Lymphocyte, Absolute 1.4 10 3/mcL Normal 0.8-3.9 [facility] [place]) Comment on above: Performed By: #### B MP, ADIFF, CBC, TROPHS, ANEU, MDW, GFR ####Johny [address] [place], [place] [address] Lymphocytes/100 WBC (Bld) 18.4 % Normal 10.0-50.0 [facility] ([place]) Comment on above: Performed By: #### B MP, ADIFF, CBC, TROPHS, ANEU, MDW, GFR ####Johny [address] [place], [place] [address] Monocyte, Absolute 0.8 10 3/mcL Normal 0.2-1.0 [facility] ([place]) Comment on above: Performed By: #### B MP, ADIFF, CBC, TROPHS, ANEU, MDW, GFR ####Johny [address] [place], [place] [address] Monocytes/100 WBC (Bld) 10.0 % Normal 1.7-13.0 [facility] ([place]) Comment on above: Performed By: #### B MP, ADIFF, CBC, TROPHS, ANEU, MDW, GFR ####Johny [address] [place], [place] [address] Neutrophils/100 WBC (Bld) 63.9 % Normal 37.0-80.0 [facility] ([place]) Comment on above: Performed By: #### B MP, ADIFF, CBC, TROPHS, ANEU, MDW, GFR ####Johny [address] [place], [place] [address] .GFRon 08-06-2023 GFR 58 ml/min/1.73sqm Normal [facility] ([place]) Comment on above: Result Comment: GFR Population mean for , Non- Americans Ages 20-29 = 116 mL/min/1.73 sq.m. Ages 30-39 = 107 mL/min/1.73 sq.m. Ages 40-49 = 99 mL/min/1.73 sq.m. Ages 50-59 = 93 mL/min/1.73 sq.m. Ages 60-69 = 85 mL/min/1.73 sq.m. Ages 70+ = 75 mL/min/1.73 sq.m.Chronic Kidney Disease: Less than 60 mL/min/1.73 square metersEnd Stage Renal Disease: Less than 15 mL/min/1.73 square meters Performed By: #### B MP, ADIFF, CBC, TROPHS, ANEU, MDW, GFR ####Johny [address] [place], [place] [address] GFR Non- 48 ml/min/1.73sqm Normal [facility] ([place]) Comment on above: Result Comment: GFR Population mean for , Non- Americans Ages 20-29 = 116 mL/min/1.73 sq.m. Ages 30-39 = 107 mL/min/1.73 sq.m. Ages 40-49 = 99 mL/min/1.73 sq.m. Ages 50-59 = 93 mL/min/1.73 sq.m. Ages 60-69 = 85 mL/min/1.73 sq.m. Ages 70+ = 75 mL/min/1.73 sq.m.Chronic Kidney Disease: Less than 60 mL/min/1.73 square metersEnd Stage Renal Disease: Less than 15 mL/min/1.73 square meters Performed By: #### B EMANUEL MARKS, YARA, HARSHAD RAMÍREZ MDW, GFR ####Johny [address] [place], [place] [address] .MDWon 08-06-2023 Monocyte Distribution Width 20.48 High 0.00-20.00 [facility] ([place]) Comment on above: Result Comment: For adults in ED, MDW>20.0 may be associated with a higher risk of sepsis during the first 12hrs of hospital admission Performed By: #### B EMANUEL MARKS, YARA, HARSHAD RAMÍREZ MDW, GFR ####Johny [address] [place], [place] [address] .NEUABSon 08-06-2023 Neutrophil, Absolute 4.9 10 3/mcL Normal 2.9-6.2 [facility] [place] Comment on above: Performed By: #### B EMANUEL MARKS, YARA, HARSHAD RAMÍREZ MDW, GFR ####Johny [address] [place], [place] [address] BMPon 08-06-2023 BUN/Creatinine Ratio 8 ratio Normal 7-27 [facility] ([place]) Comment on above: Performed By: #### B EMANUEL MARKS, YARA, HARSHAD RAMÍREZ MDW, GFR ####Johny [address] [place], [place] [address] Calcium [Mass/Vol] 8.8 mg/dL Normal 8.4-10.2 Replaced by [facility] ([place]) Comment on above: Performed By: #### B MP, ADIFF, CBC, TROPHS, ANEU, MDW, GFR ####Johny [address] [place], [place] [address] Chloride [Moles/Vol] 106 mmol/L Normal 98-107 [facility] ([place]) Comment on above: Performed By: #### B MP, ADIFF, CBC, TROPHS, ANEU, MDW, GFR ####Johny [address] [place], [place] [address] CO2 [Moles/Vol] 28 mmol/L Normal 22-29 [facility] ([place]) Comment on above: Performed By: #### B MP, ADIFF, CBC, TROPHS, ANEU, MDW, GFR ####Johny [address] [place], [place] [address] Creatinine [Mass/Vol] 1.18 mg/dL High 0.55-1.02 [facility] ([place]) Comment on above: Performed By: #### B MP, ADIFF, CBC, TROPHS, ANEU, MDW, GFR ####Johny [address] [place], [place] [address] Electrolyte Balance 9.0 mEq/L Normal 4.0-15.0 [facility] ([place]) Comment on above: Performed By: #### B MP, ADIFF, CBC, TROPHS, ANEU, MDW, GFR ####Johny [address] [place], [place] [address] Glucose [Mass/Vol] 104 mg/dL Normal 70-105 Replaced by [facility] ([place]) Comment on above: Performed By: #### B MP, ADIFF, CBC, TROPHS, ANEU, MDW, GFR ####Johny [address] [place], [place] [address] Potassium [Moles/Vol] 4.0 mmol/L Normal 3.5-5.1 [facility] ([place]) Comment on above: Performed By: #### B MP, ADIFF, CBC, TROPHS, ANEU, MDW, GFR ####Johny [address] [place], [place] [address] Sodium [Moles/Vol] 143 mmol/L Normal 136-145 Replaced by [facility] ([place] Comment on above: Performed By: #### B MP, ADIFF, CBC, TROPHS, ANEU, MDW, GFR ####Johny [address] [place], [place] [address] Urea nitrogen [Mass/Vol] 9 mg/dL Normal 7-18 [facility] ([place]) Comment on above: Performed By: #### B MP, ADIFF, CBC, TROPHS, ANEU, MDW, GFR ####Johny [place] [place], [place] [address] CBCon 08-06-2023 Erythrocyte distribution width (RBC) [Ratio] 19.2 % High 11.5-14.5 [facility] ([place]) Comment on above: Performed By: #### B MP, ADIFF, CBC, TROPHS, ANEU, MDW, GFR ####Johny [address] [place], [place] [address] Hematocrit (Bld) [Volume fraction] 34.3 % Low 37.0-47.0 [facility] ([place]) Comment on above: Performed By: #### B MP, ADIFF, CBC, TROPHS, ANEU, MDW, GFR ####Johny [address] [place], [place] [address] Hgb 10.9 G/dL Low 12.0-16.0 [facility] ([place]) Comment on above: Performed By: #### B MP, ADIFF, CBC, TROPHS, ANEU, MDW, GFR ####Johny [address] [place], [place] [address] MCH (RBC) [Entitic mass] 27.9 pg Normal 27.0-31.2 [facility] ([place]) Comment on above: Performed By: #### B MP, ADIFF, CBC, TROPHS, ANEU, MDW, GFR ####Johny [address] [place], [place] [address] MCHC 31.9 G/dL Low 33.0-37.0 [facility] ([place]) Comment on above: Performed By: #### B MP, ADIFF, CBC, TROPHS, ANEU, MDW, GFR ####Johny [address] [place], [place] [address] MCV (RBC) [Entitic vol] 87.6 fL Normal 80.0-94.0 [facility] ([place]) Comment on above: Performed By: #### B MP, ADIFF, CBC, TROPHS, JUAN CARLOS PATRICIA, GFR ####Johny [address] [place], [place] [address] Platelet 331 10 3/mcL Normal 130-400 [facility] ([place]) Comment on above: Performed By: #### B MP, ADIFF, CBC, BLAZES, JUAN CARLOS PATRICIA, GFR ####[address]y [address] [place], [place] [address] Platelet mean volume (Bld) [Entitic vol] 8.0 fL Normal 7.4-10.4 [facility] ([place]) Comment on above: Performed By: #### B MP, ADIFF, CBC, HARSHAD RAMÍREZ MDW, GFR ####Johny [address] [place], [place] [address] RBC 3.91 10 6/mcL Low 4.20-5.40 [facility] ([place]) Comment on above: Performed By: #### B MP, ADIFF, CBC, DARRELL, JUAN CARLOS PATRICIA, GFR ####Johny [address] [place], [place] [address] WBC 7.7 10 3/mcL Normal 4.6-10.8 [facility] ([place]) Comment on above: Performed By: #### B MP, ADIFF, CBC, HARSHAD RAMÍREZ MDW, GFR ####Johny [address] [place], [place] [address] LABORATORYOrdered By: SYSTEM SYSTEM on 08-06-2023 Basophil, Absolute 0.1 103/mcL Normal 0.0 - 0.2 10^3/mcL AO Workflow SS Basophils/100 WBC (Bld) 0.7 % Normal 0.0 - 2.5 % AO Workflow SS Calcium [Mass/Vol] 8.8 mg/dL Normal 8.4 - 10. 2 mg/dL AO ADM SS Chloride [Moles/Vol] 106 mmol/L Normal 98 - 10 7 mmol/L AO ADM SS CO2 [Moles/Vol] 28 mmol/L Normal 22 - 29 mmol/L AO ADM SS Creatinine [Mass/Vol] 1.18 mg/dL High 0.55 - 1.02 mg/dL AO ADM SS Electrolyte Balance 9.0 mEq/L Normal 4.0 - 15 .0 mEq/L AO ADM SS Eosinophil, Absolute 0.5 103/mcL High 0.0 - 0 .4 10^3/mcL AO Workflow SS Eosinophils/100 WBC (Bld) 7.0 % Normal 0.0 - 7.0 % AO Workflow SS Erythrocyte distribution width (RBC) [Ratio] 19.2 % High 11.5 - 14.5 % AO Workflow SS GFR/1.73 sq M.predicted among blacks MDRD (S/P/Bld) [Vol rate/Area] 58 ml/min/1.73sqm Invalid Interpretation Code AO Chemistry S Comment on above: Interpretive Data: GFR Population mean for , Non- Americans Ages 20-29 = 116 mL/min/1.73 sq.m. Ages 30-39 = 107 mL/min/1.73 sq.m. Ages 40-49 = 99 mL/min/1.73 sq.m. Ages 50-59 = 93 mL/min/1.73 sq.m. Ages 60-69 = 85 mL/min/1.73 sq.m. Ages 70+ = 75 mL/min/1.73 sq.m. Chronic Kidney Disease: Less than 60 mL/min/1.73 square meters End Stage Renal Disease: Less than 15 mL/min/1.73 square meters GFR/1.73 sq M.predicted among non-blacks MDRD (S/P/Bld) [Vol rate/Area] 48 ml/min/1.73sqm Invalid Interpretation Code AO Chemistry S Comment on above: Interpretive Data: GFR Population mean for , Non- Americans Ages 20-29 = 116 mL/min/1.73 sq.m. Ages 30-39 = 107 mL/min/1.73 sq.m. Ages 40-49 = 99 mL/min/1.73 sq.m. Ages 50-59 = 93 mL/min/1.73 sq.m. Ages 60-69 = 85 mL/min/1.73 sq.m. Ages 70+ = 75 mL/min/1.73 sq.m. Chronic Kidney Disease: Less than 60 mL/min/1.73 square meters End Stage Renal Disease: Less than 15 mL/min/1.73 square meters Glucose [Mass/Vol] 104 mg/dL Normal 70 - 105 mg/dL AO ADM SS Hematocrit (Bld) [Volume fraction] 34.3 % Low 37.0 - 47.0 % AO Workflow SS Hemoglobin (Bld) [Mass/Vol] 10.9 G/dL Low 12.0 - 16.0 G/dL AO Workflow SS Lymphocyte, Absolute 1.4 103/mcL Normal 0.8 - 3 .9 10^3/mcL AO Workflow SS Lymphocytes/100 WBC (Bld) 18.4 % Normal 10.0 - 50.0 % AO Workflow SS MCH (RBC) [Entitic mass] 27.9 pg Normal 27.0 - 31.2 pg AO Workflow SS MCHC 31.9 G/dL Low 33.0 - 37.0 G/dL AO Workflow SS MCV (RBC) [Entitic vol] 87.6 fL Normal 80.0 - 94.0 fL AO Workflow SS Monocyte distribution width Auto (Bld) [Entitic vol] 20.48 1 High 0.00 - 20.00 AO Workflow SS Comment on above: Result Comment: For adults in ED, MDW>20.0 may be associated with a higher risk of sepsis during the first 12hrs of hospital admission Monocyte, Absolute 0.8 103/mcL Normal 0.2 - 1.0 10^3/mcL AO Workflow SS Monocytes/100 WBC (Bld) 10.0 % Normal 1.7 - 13.0 % AO Workflow SS Neutrophil, Absolute 4.9 103/mcL Normal 2.9 - 6 .2 10^3/mcL AO Workflow SS Neutrophils/100 WBC (Bld) 63.9 % Normal 37.0 - 80.0 % AO Workflow SS Platelet mean volume (Bld) [Entitic vol] 8.0 fL Normal 7.4 - 10.4 fL AO Workflow SS Platelets (Bld) [#/Vol] 331 103/mcL Normal 130 - 400 10^3/mcL AO Workflow SS Potassium [Moles/Vol] 4.0 mmol/L Normal 3.5 - 5.1 mmol/L AO ADM SS RBC (Bld) [#/Vol] 3.91 106/mcL Low 4.20 - 5.4 0 10^6/mcL AO Workflow SS Sodium [Moles/Vol] 143 mmol/L Normal 136 - 145 mmol/L AO ADM SS Troponin I.cardiac DL <= 0.01 ng/mL [Mass/Vol] 10 ng/L Normal 0 - 51 ng/L AO ADM SS Comment on above: Interpretive Data: H igh Sensitive Troponin I Reference Ranges: Female: 0-51 ng/L Male: 0-76 ng/L Testing performed on [employer] using a homogeneous sandwich chemiluminescent immunoassay based on Solvate technology. Urea nitrogen [Mass/Vol] 9 mg/dL Normal 7 - 18 mg/dL AO ADM SS Urea nitrogen/Creatinine [Mass ratio] 8 ratio Normal 7 - 27 ratio AO ADM SS WBC (Bld) [#/Vol] 7.7 103/mcL Normal 4.6 - 10.8 10^3/mcL AO Workflow SS TROPHSon 08-06-2023 High Sensitivity Troponin I 10 ng/L Normal 0-51 [facility] ([place]) Comment on above: Result Comment: High Sensitive Troponin I Reference Ranges:Female: 0-51 ng/LMale: 0-76 ng/LTesting performed on [employer] using a homogeneous sandwich chemiluminescent immunoassay based on Solvate technology. Performed By: #### B MP, ADIFF, CBC, TROPHS, HARSHAD, W, GFR ###Haleigh [address] [place], [place] [address] XR CHEST 1 VIEWon 08-06-2023 XR CHEST 1 VIEW Normal [facility] ([place]) .Auto Diffon 2023 Basophil, Absolute 0.2 10 3/mcL Normal 0.0-0.2 [facility] ([place]) Comment on above: Performed By: #### G FR, TROPHS, TSHR, ADIFF, ANEU, FT4, CBC, TIANA, W ####Johny [address] [place], [place] [address] Basophils/100 WBC (Bld) 2.6 % High 0.0-2.5 [facility] ([place]) Comment on above: Performed By: #### G FR, TROPHS, TSHR, ADIFF, ANEU, FT4, CBC, BMP, W ####Johny [address] [place], [place] [address] Eosinophil, Absolute 0.5 10 3/mcL High 0.0-0.4 [facility] ([place]) Comment on above: Performed By: #### G FR, TROPHS, TSHR, ADIFF, ANEU, FT4, CBC, BMP, MDW ####Johny [address] [place], [place] [address] Eosinophils/100 WBC (Bld) 5.9 % Normal 0.0-7.0 [facility] ([place]) Comment on above: Performed By: #### G FR, TROPHS, TSHR, ADIFF, ANEU, FT4, CBC, BMP, MDW ####Johny [address] [place], [place] [address] Lymphocyte, Absolute 1.9 10 3/mcL Normal 0.8-3.9 [facility] ([place]) Comment on above: Performed By: #### G FR, TROPHS, TSHR, ADIFF, ANEU, FT4, CBC, BMP, MDW ####Johny [address] [place], [place] [address] Lymphocytes/100 WBC (Bld) 25.0 % Normal 10.0-50.0 [facility] ([place]) Comment on above: Performed By: #### G FR, TROPHS, TSHR, ADIFF, ANEU, FT4, CBC, BMP, MDW ####Johny [address] [place], [place] [address] Monocyte, Absolute 0.5 10 3/mcL Normal 0.2-1.0 [facility] ([place]) Comment on above: Performed By: #### G FR, TROPHS, TSHR, ADIFF, ANEU, FT4, CBC, BMP, MDW ####Johny [address] [place], [place] [address] Monocytes/100 WBC (Bld) 6.1 % Normal 1.7-13.0 [facility] ([place]) Comment on above: Performed By: #### G FR, TROPHS, TSHR, ADIFF, ANEU, FT4, CBC, BMP, MDW ####Johny [address] [place], [place] [address] Neutrophils/100 WBC (Bld) 60.4 % Normal 37.0-80.0 [facility] ([place]) Comment on above: Performed By: #### G FR, TROPHS, TSHR, ADIFF, ANEU, FT4, CBC, BMP, MDW ####Johny [address] [place], [place] [address] .GFRon 2023 GFR Non- 40 ml/min/1.73sqm Normal [facility] ([place]) Comment on above: Result Comment: GFR Population mean for , Non- Americans Ages 20-29 = 116 mL/min/1.73 sq.m. Ages 30-39 = 107 mL/min/1.73 sq.m. Ages 40-49 = 99 mL/min/1.73 sq.m. Ages 50-59 = 93 mL/min/1.73 sq.m. Ages 60-69 = 85 mL/min/1.73 sq.m. Ages 70+ = 75 mL/min/1.73 sq.m.Chronic Kidney Disease: Less than 60 mL/min/1.73 square metersEnd Stage Renal Disease: Less than 15 mL/min/1.73 square meters Performed By: #### G FR, TROPHS, TSHR, ADIFF, ANEU, FT4, CBC, BMP, MDW ####Johny [address] [place], [place] [address] GFR 49 ml/min/1.73sqm Normal [facility] ([place]) Comment on above: Result Comment: GFR Population mean for , Non- Americans Ages 20-29 = 116 mL/min/1.73 sq.m. Ages 30-39 = 107 mL/min/1.73 sq.m. Ages 40-49 = 99 mL/min/1.73 sq.m. Ages 50-59 = 93 mL/min/1.73 sq.m. Ages 60-69 = 85 mL/min/1.73 sq.m. Ages 70+ = 75 mL/min/1.73 sq.m.Chronic Kidney Disease: Less than 60 mL/min/1.73 square metersEnd Stage Renal Disease: Less than 15 mL/min/1.73 square meters Performed By: #### G FR, TROPHS, TSHR, ADIFF, ANEU, FT4, CBC, BMP, MDW ####Johny [address] [place] [address] .MDWon 2023 Monocyte Distribution Width 17.51 Normal 0.00-20.00 [facility] ([place]) Comment on above: Result Comment: For ED adult patients suspected of sepsis, MDW<=20.0 does not rule out sepsis or risk of sepsis Performed By: #### G FR, TROPHS, TSHR, ADIFF, ANEU, FT4, CBC, BMP, MDW ####Johny [address] [place] [address] .NEUABSon 2023 Neutrophil, Absolute 4.7 10 3/mcL Normal 2.9-6.2 [facility] [place] Comment on above: Performed By: #### G FR, TROPHS, TSHR, ADIFF, ANEU, FT4, CBC, BMP, W ####Johny [address] [place] [address] .Urinalysis Microscopic (AO) on 2023 UA RBC 0-5 Abnormal None Seen [facility] ([place]) Comment on above: Performed By: #### U A, UAMICAO ####Johny [address] [place] [address] UA Squam Epithelial 0-5 Abnormal None Seen [facility] ([place]) Comment on above: Performed By: #### U A, UAMICAO ####Johny [address] [place] [address] UA WBC 0-5 Abnormal None Seen [facility] ([place]) Comment on above: Performed By: #### U A, UAMICAO ####Johny [address] [place] [address] BMPon 2023 BUN/Creatinine Ratio 7 ratio Normal 7-27 [facility] ([place]) Comment on above: Performed By: #### G FR, TROPHS, TSHR, ADIFF, ANEU, FT4, CBC, BMP, W ####Johny [address] [place], [place] [address] Calcium [Mass/Vol] 9.6 mg/dL Normal 8.4-10.2 Replaced by [facility] ([place]) Comment on above: Performed By: #### G FR, TROPHS, TSHR, ADIFF, ANEU, FT4, CBC, BMP, MDW ####Johny [address] [place], [place] [address] Chloride [Moles/Vol] 101 mmol/L Normal 98-107 [facility] ([place]) Comment on above: Performed By: #### G FR, TROPHS, TSHR, ADIFF, ANEU, FT4, CBC, BMP, MDW ####Johny [address] [place], [place] [address] CO2 [Moles/Vol] 25 mmol/L Normal 22-29 [facility] ([place]) Comment on above: Performed By: #### G FR, TROPHS, TSHR, ADIFF, ANEU, FT4, CBC, BMP, W ####Johny [address] [place], [place] [address] Creatinine [Mass/Vol] 1.37 mg/dL High 0.55-1.02 [facility] ([place]) Comment on above: Performed By: #### G FR, TROPHS, TSHR, ADIFF, ANEU, FT4, CBC, BMP, W ####Johny [address] [place], [place] [address] Electrolyte Balance 13.0 mEq/L Normal 4.0-15.0 [facility] ([place]) Comment on above: Performed By: #### G FR, TROPHS, TSHR, ADIFF, ANEU, FT4, CBC, BMP, MDW ####Johny [address] [place], [place] [address] Glucose [Mass/Vol] 104 mg/dL Normal 70-105 Replaced by [facility] ([place] Comment on above: Performed By: #### Michelle FR, TROPHS, TSHR, ADIFF, ANEU, FT4, CBC, BMP, MDW ####Johny [address] [place], [place] [address] Potassium [Moles/Vol] 4.6 mmol/L Normal 3.5-5.1 [facility] ([place]) Comment on above: Performed By: #### G FR, TROPHS, TSHR, ADIFF, ANEU, FT4, CBC, TIANA, W ####Johny [address] [place], [place] [address] Sodium [Moles/Vol] 139 mmol/L Normal 136-145 Replaced by [facility] ([place] Comment on above: Performed By: #### G FR, TROPHS, TSHR, ADIFF, ANEU, FT4, CBC, BMP, W ####Johny [address] [place], [place] [address] Urea nitrogen [Mass/Vol] 10 mg/dL Normal 7-18 [facility] ([place]) Comment on above: Performed By: #### G FR, TROPHS, TSHR, ADIFF, ANEU, FT4, CBC, TIANA, JUAN CARLOS ####Johny [address] [place], [place] [address] CBCon 2023 Erythrocyte distribution width (RBC) [Ratio] 18.9 % High 11.5-14.5 [facility] ([place]) Comment on above: Performed By: #### G FR, TROPHS, TSHR, ADIFF, ANEU, FT4, CBC, TIANA, JUAN CARLOS ####Johny [address] [place], [place] [address] Hematocrit (Bld) [Volume fraction] 38.7 % Normal 37.0-47.0 [facility] ([place]) Comment on above: Performed By: #### G FR, TROPHS, TSHR, ADIFF, ANEU, FT4, CBC, TIANA, JUAN CARLOS ####Johny [address] [place], [place] [address] Hgb 12.4 G/dL Normal 12.0-16.0 [facility] ([place]) Comment on above: Performed By: #### G FR, TROPHS, TSHR, ADIFF, ANEU, FT4, CBC, TIANA, JUAN CARLOS ####Johny [address] [place], [place] [address] MCH (RBC) [Entitic mass] 27.8 pg Normal 27.0-31.2 [facility] ([place]) Comment on above: Performed By: #### G FR, TROPHS, TSHR, ADIFF, ANEU, FT4, CBC, TIANA, JUAN CARLOS ####Johny [address] [place], [place] [address] MCHC 32.0 G/dL Low 33.0-37.0 [facility] ([place]) Comment on above: Performed By: #### G FR, TROPHS, TSHR, ADIFF, ANEU, FT4, CBC, TIANA, JUAN CARLOS ####Johny [address] [place], [place] [address] MCV (RBC) [Entitic vol] 87.0 fL Normal 80.0-94.0 [facility] ([place]) Comment on above: Performed By: #### G FR, TROPHS, TSHR, ADIFF, ANEU, FT4, CBC, TIANA, JUAN CARLOS ####Johny [address] [place], [place] [address] Platelet 385 10 3/mcL Normal 130-400 [facility] ([place]) Comment on above: Performed By: #### G FR, TROPHS, TSHR, ADIFF, ANEU, FT4, CBC, JUAN CARLOS MONTIEL ####Johny [address] [place], [place] [address] Platelet mean volume (Bld) [Entitic vol] 8.0 fL Normal 7.4-10.4 [facility] ([place]) Comment on above: Performed By: #### G FR, TROPHS, TSHR, ADIFF, ANEU, FT4, CBC, TIANA, JUAN CARLOS ####Johny [address] [place], [place] [address] RBC 4.45 10 6/mcL Normal 4.20-5.40 [facility] ([place]) Comment on above: Performed By: #### G FR, TROPHS, TSHR, ADIFF, ANEU, FT4, CBC, TIANA, JUAN CARLOS ####Johny [address] [place], [place] [address] WBC 7.7 10 3/mcL Normal 4.6-10.8 [facility] ([place]) Comment on above: Performed By: #### G FR, TROPHS, TSHR, ADIFF, ANEU, FT4, CBC, BMP, MDW ####Johny [address] [place], [place] [address] FT4on 2023 Free T4 [Mass/Vol] 0.13 ng/dL Low 0.76-1.46 Replaced by [facility] ([place]) Comment on above: Order Comment: Order ed by Discern Performed By: #### G FR, TROPHS, TSHR, ADIFF, ANEU, FT4, CBC, BMP, MDW ####Johny [address] [place], [place] [address] LABORATORYOrdered By: SYSTEM SYSTEM on 2023 Basophil, Absolute 0.2 103/mcL Normal 0.0 - 0.2 10^3/mcL AO Workflow SS Basophils/100 WBC (Bld) 2.6 % High 0.0 - 2.5 % AO Workflow SS Calcium [Mass/Vol] 9.6 mg/dL Normal 8.4 - 10. 2 mg/dL AO ADM SS Chloride [Moles/Vol] 101 mmol/L Normal 98 - 10 7 mmol/L AO ADM SS CO2 [Moles/Vol] 25 mmol/L Normal 22 - 29 mmol/L AO ADM SS Creatinine [Mass/Vol] 1.37 mg/dL High 0.55 - 1.02 mg/dL AO ADM SS Electrolyte Balance 13.0 mEq/L Normal 4.0 - 15 .0 mEq/L AO ADM SS Eosinophil, Absolute 0.5 103/mcL High 0.0 - 0 .4 10^3/mcL AO Workflow SS Eosinophils/100 WBC (Bld) 5.9 % Normal 0.0 - 7.0 % AO Workflow SS Erythrocyte distribution width (RBC) [Ratio] 18.9 % High 11.5 - 14.5 % AO Workflow SS Free T4 [Mass/Vol] 0.13 ng/dL Low 0.76 - 1. 46 ng/dL AO ADM SS GFR/1.73 sq M.predicted among blacks MDRD (S/P/Bld) [Vol rate/Area] 49 ml/min/1.73sqm Invalid Interpretation Code AO Chemistry S Comment on above: Interpretive Data: GFR Population mean for , Non- Americans Ages 20-29 = 116 mL/min/1.73 sq.m. Ages 30-39 = 107 mL/min/1.73 sq.m. Ages 40-49 = 99 mL/min/1.73 sq.m. Ages 50-59 = 93 mL/min/1.73 sq.m. Ages 60-69 = 85 mL/min/1.73 sq.m. Ages 70+ = 75 mL/min/1.73 sq.m. Chronic Kidney Disease: Less than 60 mL/min/1.73 square meters End Stage Renal Disease: Less than 15 mL/min/1.73 square meters GFR/1.73 sq M.predicted among non-blacks MDRD (S/P/Bld) [Vol rate/Area] 40 ml/min/1.73sqm Invalid Interpretation Code AO Chemistry S Comment on above: Interpretive Data: GFR Population mean for , Non- Americans Ages 20-29 = 116 mL/min/1.73 sq.m. Ages 30-39 = 107 mL/min/1.73 sq.m. Ages 40-49 = 99 mL/min/1.73 sq.m. Ages 50-59 = 93 mL/min/1.73 sq.m. Ages 60-69 = 85 mL/min/1.73 sq.m. Ages 70+ = 75 mL/min/1.73 sq.m. Chronic Kidney Disease: Less than 60 mL/min/1.73 square meters End Stage Renal Disease: Less than 15 mL/min/1.73 square meters Glucose [Mass/Vol] 104 mg/dL Normal 70 - 105 mg/dL AO ADM SS Hematocrit (Bld) [Volume fraction] 38.7 % Normal 37.0 - 47.0 % AO Workflow SS Hemoglobin (Bld) [Mass/Vol] 12.4 G/dL Normal 12.0 - 16.0 G/dL AO Workflow SS Lymphocyte, Absolute 1.9 103/mcL Normal 0.8 - 3 .9 10^3/mcL AO Workflow SS Lymphocytes/100 WBC (Bld) 25.0 % Normal 10.0 - 50.0 % AO Workflow SS MCH (RBC) [Entitic mass] 27.8 pg Normal 27.0 - 31.2 pg AO Workflow SS MCHC 32.0 G/dL Low 33.0 - 37.0 G/dL AO Workflow SS MCV (RBC) [Entitic vol] 87.0 fL Normal 80.0 - 94.0 fL AO Workflow SS Monocyte distribution width Auto (Bld) [Entitic vol] 17.51 1 Normal 0.00 - 20.00 AO Workflow SS Comment on above: Result Comment: For ED adult patients suspected of sepsis, MDW<=20.0 does not rule out sepsis or risk of sepsis Monocyte, Absolute 0.5 103/mcL Normal 0.2 - 1.0 10^3/mcL AO Workflow SS Monocytes/100 WBC (Bld) 6.1 % Normal 1.7 - 13.0 % AO Workflow SS Neutrophil, Absolute 4.7 103/mcL Normal 2.9 - 6 .2 10^3/mcL AO Workflow SS Neutrophils/100 WBC (Bld) 60.4 % Normal 37.0 - 80.0 % AO Workflow SS Platelet mean volume (Bld) [Entitic vol] 8.0 fL Normal 7.4 - 10.4 fL AO Workflow SS Platelets (Bld) [#/Vol] 385 103/mcL Normal 130 - 400 10^3/mcL AO Workflow SS Potassium [Moles/Vol] 4.6 mmol/L Normal 3.5 - 5.1 mmol/L AO ADM SS RBC (Bld) [#/Vol] 4.45 106/mcL Normal 4.20 - 5.4 0 10^6/mcL AO Workflow SS Sodium [Moles/Vol] 139 mmol/L Normal 136 - 145 mmol/L AO ADM SS Troponin I.cardiac DL <= 0.01 ng/mL [Mass/Vol] 6 ng/L Normal 0 - 51 ng/L AO ADM SS Comment on above: Interpretive Data: H igh Sensitive Troponin I Reference Ranges: Female: 0-51 ng/L Male: 0-76 ng/L Testing performed on [employer] using a homogeneous sandwich chemiluminescent immunoassay based on Solvate technology. TSH mcIU/mL High 0.36 - 3.74 mcIU/mL AO ADM SS Urea nitrogen [Mass/Vol] 10 mg/dL Normal 7 - 18 mg/dL AO ADM SS Urea nitrogen/Creatinine [Mass ratio] 7 ratio Normal 7 - 27 ratio AO ADM SS WBC (Bld) [#/Vol] 7.7 103/mcL Normal 4.6 - 10.8 10^3/mcL AO Workflow SS LABORATORYOrdered By: Stacey Rincon on 2023 Appearance (U) Clear (07/31/23 6:13 PM) Normal Clear AO Auto Urine SS Bilirubin Ql (U) Negative (07/31/23 6:13 PM) Normal Negative AO Auto Urine SS Color (U) Yellow (07/31/23 6:13 PM) Normal AO Auto Urine SS Glucose Test strip (U) [Mass/Vol] Negative Normal Negative AO Auto Urine SS Hemoglobin Auto test strip (U) [Mass/Vol] Negative (07/31/23 6:13 PM) Normal Negative AO Auto Urine SS Ketones Ql (U) Negative Normal Negative AO Auto Ur ine SS UA Leuk Est Trace *ABN* (07/31/23 6:13 PM) Invalid Interpretation Code Negative AO Auto Urine SS UA Nitrite Negative (07/31/23 6:13 PM) Normal Negative AO Auto Urine SS UA pH 6.5 (07/31/23 6:13 PM) Normal 5.0 - 8.0 AO Auto Urine SS UA Protein Negative Normal Negative AO Auto Urine SS UA RBC 0-5 /HPF Invalid Interpretation Code None Seen AO Auto Urine SS UA Spec Grav 1.020 (07/31/23 6:13 PM) Normal 1.015-1.025 AO Auto Urine SS UA Specimen Type Void (07/31/23 6:13 PM) Normal AO Auto Urine SS UA Squam Epithelial 0-5 /HPF Invalid Interpretation Code None Seen AO Auto Urine SS UA Urobilinogen 0.2 E.U./dL Normal 0.2-1.0 AO Auto Urine SS WBC LM.HPF (Urine sed) [#/Area] 0-5 /HPF Invalid Interpretation Code None Seen AO Auto Urine SS LABORATORYOrdered By: Magdiel Trinidad on 2023 Glucose [Mass/Vol] 105 mg/dL Normal 70 - 110 mg/dL [facility] High Sensitivity Troponin I 6 ng/L Normal 0-51 [facility] ([place]) Comment on above: Result Comment: High Sensitive Troponin I Reference Ranges:Female: 0-51 ng/LMale: 0-76 ng/LTesting performed on [email or web address] using a homogeneous sandwich chemiluminescent immunoassay based on Solvate technology. Performed By: #### G FR, TROPHS, TSHR, ADIFF, ANEU, FT4, CBC, BMP, MDW ####Johny [address] [place], [place] [address] TSHRon 2023 TSH Qn m[IU]/L High 0.36-3.74 [facility] ([place]) Comment on above: Performed By: #### G FR, TROPHS, TSHR, ADIFF, ANEU, FT4, CBC, BMP, MDW ####Johny [address] [place], [place] [address] UAon 2023 Color (U) Yellow Normal [facility] ([place]) Comment on above: Performed By: #### U A, UAMICAO ####Johny [address] [place] [address] Glucose (U) [Mass/Vol] Negative Normal Negative [facility] [place] Comment on above: Performed By: #### U A, UAMICAO ####Johny [address] [place] [address] Ketones Ql (U) Negative Normal Negative [facility] ([place]) Comment on above: Performed By: #### U A, UAMICAO ####Johny [address] [place] [address] UA Appear Clear Normal Clear [facility] ([place]) Comment on above: Performed By: #### U A, UAMICAO ####Johny [address] [place] [address] UA Blood Negative Normal Negative [facility] ([place]) Comment on above: Performed By: #### U A, UAMICAO ####Johny [address] [place] [address] UA Leuk Est Trace Abnormal Negative [facility] ([place]) Comment on above: Performed By: #### U A, UAMICAO ####Johny [address] [place] [address] UA Nitrite Negative Normal Negative [facility] ([place] Comment on above: Performed By: #### U A, UAMICAO ####Johny [address] [place], [place] [address] UA pH 6.5 Normal 5.0 - 8.0 [facility] ([place]) Comment on above: Performed By: #### U A, UAMICAO ####Johny [address] [place], [place] [address] UA Protein Negative Normal Negative [facility] ([place]) Comment on above: Performed By: #### U A, UAMICAO ####Johny [address] [place], [place] [address] UA Spec Grav 1.020 Normal 1.015-1.025 [facility] ([place]) Comment on above: Performed By: #### U A, UAMICAO ####Johny [address] [place], [place] [address] UA Specimen Type Void Normal [facility] ([place] Comment on above: Performed By: #### U A, UAMICAO ####Johny [address] [place], [place] [address] UA Urobilinogen 0.2 E.U./dL Normal 0.2-1.0 [facility] ([place]) Comment on above: Performed By: #### U A, UAMICAO ####Johny [address] [place], [place] [address] Urobilinogen (U) [Mass/Vol] Negative Normal Negative [facility] ([place]) Comment on above: Performed By: #### U A, UAMICAO ####Johny [address] [place], [place] [address] CNOVon 07-25-2023 CNOV Office Visit (RUST ) KAMALA GRAY ([id number]) 1970 F Date Time Provider Department 07/25/23 11:15 AM JAC CASTILLO [facility] During your visit today, we recorded the following information about you: Jac Castillo MD 07/25/2023 11:23 AM Signed [facility] Care Triage Note: Patient presents to the [facility] with complaint of feeling really weak/tired and short of breath the last couple days. She is worried her sodium or thyroid may be low causing her symptoms. Denies chest pain, dizziness, palpitations, fever. She will go to [facility] for further evaluation today where diagnostic tests are available (). Referring Provider: SELF [[id number]] Allergies As of Date: 07/25/2023 Noted Allergy Reaction HYDROCHLOROTHIAZIDE 09/28/2019 16 - Unknown NAPROXEN 11/05/2018 11 - Vomiting ASA (SALICYLATES) 12/21/2007 Date Reviewed: 06/20/2023 Reviewed by: Nessa Montes MA - Fully Assessed Primary Visit Diagnosis:Generalized weakness [R53.1] Other Visit Diagnosis:SOB (shortness of breath) [R06.02] Prescriptions as of 07/25/2023 - nystatin (MYCOSTATIN) powder Apply 1 application to affected area three times a day. - apixaban (ELIQUIS) 5 mg tab(s) Take 5 mg by mouth once daily. - ondansetron orally disintegrating (ZOFRAN ODT) 4 mg disintegrating tablet Take 1 tablet by mouth every 6 hours as needed for nausea/vomiting. - progesterone micronized (PROMETRIUM) 200 mg capsule - magnesium oxide 200 mg magnesium tab Take 1 tablet by mouth daily at bedtime. - atogepant (QULIPTA) 30 mg tablet Take by mouth. - budesonide-formoterol (SYMBICORT) 160-4.5 mcg/actuation inhaler Inhale 2 Puffs as instructed. - fremanezumab-vfrm (AJOVY AUTOINJECTOR) 225 mg/1.5 mL auto-injector Inject 225 mg subcutaneously once every month. Do not shake. - benzonatate (TESSALON PERLES) 100 mg capsule Take 2 capsules by mouth three times daily as needed. - guaiFENesin (MUCINEX FAST-MAX CHEST-CONGEST) 100 mg/5 mL syrup Take 20 mL by mouth every 4 hours as needed. - megestrol (MEGACE) 40 mg tablet Take 40 mg by mouth once daily. - TRELEGY ELLIPTA 100-62.5-25 mcg INHALE 1 PUFF DAILY with good oral care - levothyroxine (SYNTHROID) 300 mcg tablet Take by mouth. Not taking - acetaminophen(TYLENOL 325 MG TAB) Problem List As Of Date 07/25/2023 Noted Resolved HYPOTHYROIDISM NOS [E03.9] 12/21/2007 Encounter Status:Closed by JAC CASTILLO on 07/25/23 Normal [facility] .Auto Diffon 07-19-2023 Basophil, Absolute 0.1 10 3/mcL Normal 0.0-0.2 [facility] ([place]) Comment on above: Performed By: #### M ORPH, CMP, ADLALA, MDW, CBC, GFR, LIP, ANEU ####[address] [place], [place] [address] Basophils/100 WBC (Bld) 1.0 % Normal 0.0-2.5 [facility] ([place]) Comment on above: Performed By: #### M ORPH, CMP, ADIFF, MDW, CBC, GFR, LIP, ANEU ####Johny [address] [place], [place] [address] Eosinophil, Absolute 0.4 10 3/mcL Normal 0.0-0.4 [facility] ([place]) Comment on above: Performed By: #### M ORPH, CMP, ADIFF, MDW, CBC, GFR, LIP, ANEU ####Johny [address] [place], [place] [address] Eosinophils/100 WBC (Bld) 4.6 % Normal 0.0-7.0 [facility] ([place]) Comment on above: Performed By: #### M ORPH, CMP, ADIFF, MDW, CBC, GFR, LIP, ANEU ####Johny [address] [place], [place] [address] Lymphocyte, Absolute 1.5 10 3/mcL Normal 0.8-3.9 [facility] ([place]) Comment on above: Performed By: #### M ORPH, CMP, ADIFF, MDW, CBC, GFR, LIP, ANEU ####Johny [address] [place], [place] [address] Lymphocytes/100 WBC (Bld) 15.1 % Normal 10.0-50.0 [facility] ([place]) Comment on above: Performed By: #### M ORPH, CMP, EMANUEL, JUAN CARLOS, CBC, GFR, LIP, ANEU ####[address] [place], [place] [address] Monocyte, Absolute 0.6 10 3/mcL Normal 0.2-1.0 [facility] ([place]) Comment on above: Performed By: #### M ORPH, CMP, EMANUEL, W, CBC, GFR, LIP, ANEU ####[address] [place], [place] [address] Monocytes/100 WBC (Bld) 5.7 % Normal 1.7-13.0 [facility] ([place]) Comment on above: Performed By: #### M ORPH, CMP, EMANUEL, W, CBC, GFR, LIP, ANEU ####John[address] [place], [place] [address] Neutrophils/100 WBC (Bld) 73.6 % Normal 37.0-80.0 [facility] ([place]) Comment on above: Performed By: #### M ORPH, CMP, EMANUEL, JUAN CARLOS, CBC, GFR, LIP, ANEU ####[address] [place], [place] [address] .GFRon 07-19-2023 GFR Non- 44 ml/min/1.73sqm Normal [facility] ([place]) Comment on above: Result Comment: GFR Population mean for , Non- Americans Ages 20-29 = 116 mL/min/1.73 sq.m. Ages 30-39 = 107 mL/min/1.73 sq.m. Ages 40-49 = 99 mL/min/1.73 sq.m. Ages 50-59 = 93 mL/min/1.73 sq.m. Ages 60-69 = 85 mL/min/1.73 sq.m. Ages 70+ = 75 mL/min/1.73 sq.m.Chronic Kidney Disease: Less than 60 mL/min/1.73 square metersEnd Stage Renal Disease: Less than 15 mL/min/1.73 square meters Performed By: #### M ORPH, CMP, ADLALA, MDW, CBC, GFR, LIP, ANEU ####Johny [address] [place], [place] [address] GFR 54 ml/min/1.73sqm Normal [facility] ([place]) Comment on above: Result Comment: GFR Population mean for , Non- Americans Ages 20-29 = 116 mL/min/1.73 sq.m. Ages 30-39 = 107 mL/min/1.73 sq.m. Ages 40-49 = 99 mL/min/1.73 sq.m. Ages 50-59 = 93 mL/min/1.73 sq.m. Ages 60-69 = 85 mL/min/1.73 sq.m. Ages 70+ = 75 mL/min/1.73 sq.m.Chronic Kidney Disease: Less than 60 mL/min/1.73 square metersEnd Stage Renal Disease: Less than 15 mL/min/1.73 square meters Performed By: #### M ORPH, CMP, ADLALA, MDW, CBC, GFR, LIP, ANEU ####[address] [place], [place] [address] .MDWon 07-19-2023 Monocyte Distribution Width Not performed Normal 0.00-20.00 [facility] ([place]) Comment on above: Result Comment: W testing performed only on adult ER patients between the ages of 18-89 years. Performed By: #### M ORPH, CMP, ADLALA, MDW, CBC, GFR, LIP, ANEU ####[address] [place], [place] [address] .Morphon 07-19-2023 Platelet Estimate Normal Normal [facility] ([place]) Comment on above: Performed By: #### M ORPH, CMP, ADLALA, MDW, CBC, GFR, LIP, ANEU ####[address] [place], [place] [address] .NEUABSon 07-19-2023 Neutrophil, Absolute 7.2 10 3/mcL High 2.9-6.2 [facility] [place]) Comment on above: Performed By: #### M ORPH, CMP, ADLALA, MDW, CBC, GFR, LIP, ANEU ####[address] [place], [place] [address] .Urinalysis Microscopic (AO) on 07-19-2023 UA RBC None Seen Normal None Seen [facility] ([place]) Comment on above: Performed By: #### U A, UAMICAO ####[address] [place], [place] [address] UA Squam Epithelial 0-5 Abnormal None Seen [facility] ([place]) Comment on above: Performed By: #### U A, UAMICAO ####Johny [address] [place], [place] [address] UA WBC 5-10 Abnormal None Seen [facility] ([place]) Comment on above: Performed By: #### U A, UAMICAO ####[address] [place], [place] [address] CBCon 07-19-2023 Erythrocyte distribution width (RBC) [Ratio] 18.8 % High 11.5-14.5 [facility] ([place]) Comment on above: Order Comment: Speci men for CBC clotted Performed By: #### M DANIEL GONZALEZ ADIFF, MDW, CBC, GFR, LIP, ANEU ####[address] [place], [place] [address] Hematocrit (Bld) [Volume fraction] 34.5 % Low 37.0-47.0 [facility] ([place]) Comment on above: Order Comment: Speci men for CBC clotted Performed By: #### M DANIEL GONZALEZ ADIFF, MDW, CBC, GFR, LIP, ANEU ####[address] [place], [place] [address] Hgb 11.6 G/dL Low 12.0-16.0 [facility] ([place]) Comment on above: Order Comment: Speci men for CBC clotted Performed By: #### M DANIEL GONZALEZ ADIFF, MDW, CBC, GFR, LIP, ANEU ####[address] [place], [place] [address] MCH (RBC) [Entitic mass] 27.9 pg Normal 27.0-31.2 [facility] ([place]) Comment on above: Order Comment: Speci men for CBC clotted Performed By: #### M ORPH, CMP, ADIFF, MDW, CBC, GFR, LIP, ANEU ####Johny [address] [place], [place] [address] MCHC 33.6 G/dL Normal 33.0-37.0 [facility] ([place]) Comment on above: Order Comment: Speci men for CBC clotted Performed By: #### M ORPH, CMP, ADIFF, MDW, CBC, GFR, LIP, ANEU ####Johny [address] [place], [place] [address] MCV (RBC) [Entitic vol] 83.2 fL Normal 80.0-94.0 [facility] ([place]) Comment on above: Order Comment: Speci men for CBC clotted Performed By: #### M ORPH, CMP, ADIFF, MDW, CBC, GFR, LIP, ANEU ####Johny [address] [place], [place] [address] Platelet 449 10 3/mcL High 130-400 [facility] ([place]) Comment on above: Order Comment: Speci men for CBC clotted Performed By: #### M ORPH, CMP, ADIFF, MDW, CBC, GFR, LIP, ANEU ####Johny [address] [place], [place] [address] Platelet mean volume (Bld) [Entitic vol] 7.4 fL Normal 7.4-10.4 [facility] ([place]) Comment on above: Order Comment: Speci men for CBC clotted Performed By: #### M ORPH, CMP, ADIFF, MDW, CBC, GFR, LIP, ANEU ####Johny [address] [place], [place] [address] RBC 4.14 10 6/mcL Low 4.20-5.40 [facility] ([place]) Comment on above: Order Comment: Speci men for CBC clotted Performed By: #### M ORPH, CMP, ADIFF, MDW, CBC, GFR, LIP, ANEU ####John[address] [place], [place] [address] WBC 9.8 10 3/mcL Normal 4.6-10.8 [facility] ([place]) Comment on above: Order Comment: Speci men for CBC clotted Performed By: #### M ORPH, CMP, ADIFF, MDW, CBC, GFR, LIP, ANEU ####Johny [address] [place], [place] [address] CMPon 07-19-2023 Albumin Level 3.4 G/dL Low 3.5-5.0 [facility] ([place]) Comment on above: Order Comment: Speci men for CMP, LIP hemolyzed Performed By: #### M ORPH, CMP, ADIFF, MDW, CBC, GFR, LIP, ANEU ####[address] [place], [place] [address] Albumin/Globulin [Mass ratio] 0.8 {ratio} Low 1.1-2.5 [facility] ([place]) Comment on above: Order Comment: Speci men for CMP, LIP hemolyzed Performed By: #### M ORPH, CMP, ADIFF, MDW, CBC, GFR, LIP, ANEU ####[address] [place], [place] [address] ALP [Catalytic activity/Vol] 138 U/L High 40-135 [facility] ([place]) Comment on above: Order Comment: Speci men for CMP, LIP hemolyzed Performed By: #### M ORPH, CMP, ADIFF, MDW, CBC, GFR, LIP, ANEU ####John[address] [place], [place] [address] ALT [Catalytic activity/Vol] 47 U/L Normal 14-59 [facility] ([place]) Comment on above: Order Comment: Speci men for CMP, LIP hemolyzed Performed By: #### M ORPH, CMP, ADIFF, MDW, CBC, GFR, LIP, ANEU ####John[address] [place], [place] [address] AST [Catalytic activity/Vol] 43 U/L High 10-40 [facility] ([place]) Comment on above: Order Comment: Speci men for CMP, LIP hemolyzed Performed By: #### M ORPH, CMP, ADIFF, MDW, CBC, GFR, LIP, ANEU ####Johny [address] [place], [place] [address] Bili Total 0.4 mg/dL Normal 0.2-1.0 [facility] ([place]) Comment on above: Order Comment: Speci men for CMP, LIP hemolyzed Result Comment: Use of this assay is not recommended for patients undergoing treatment with eltrombopag due to the potential for falsely elevated results. Performed By: #### M ORPH, CMP, ADIFF, MDW, CBC, GFR, LIP, ANEU ####John[address] [place], [place] [address] BUN/Creatinine Ratio 7 ratio Normal 7-27 [facility] ([place]) Comment on above: Order Comment: Speci men for CMP, LIP hemolyzed Performed By: #### M ORPH, CMP, ADIFF, MDW, CBC, GFR, LIP, ANEU ####[address] [place], [place] [address] Calcium [Mass/Vol] 9.5 mg/dL Normal 8.4-10.2 Replaced by [facility] ([place]) Comment on above: Order Comment: Speci men for CMP, LIP hemolyzed Performed By: #### M ORPH, CMP, ADIFF, MDW, CBC, GFR, LIP, ANEU ####Johny [address] [place], [place] [address] Chloride [Moles/Vol] 101 mmol/L Normal 98-107 [facility] ([place]) Comment on above: Order Comment: Speci men for CMP, LIP hemolyzed Performed By: #### M ORPH, CMP, ADIFF, MDW, CBC, GFR, LIP, ANEU ####Johny [address] [place], [place] [address] CO2 [Moles/Vol] 29 mmol/L Normal 22-29 [facility] ([place]) Comment on above: Order Comment: Speci men for CMP, LIP hemolyzed Performed By: #### M ORPH, CMP, ADIFF, MDW, CBC, GFR, LIP, ANEU ####Johny [address] [place], [place] [address] Creatinine [Mass/Vol] 1.27 mg/dL High 0.55-1.02 [facility] ([place]) Comment on above: Order Comment: Speci men for CMP, LIP hemolyzed Performed By: #### M ORPH, CMP, ADIFF, MDW, CBC, GFR, LIP, ANEU ####Johny [address] [place], [place] [address] Electrolyte Balance 9.0 mEq/L Normal 4.0-15.0 [facility] ([place]) Comment on above: Order Comment: Speci men for CMP, LIP hemolyzed Performed By: #### M ORPH, CMP, ADIFF, MDW, CBC, GFR, LIP, ANEU ####Johny [address] [place], [place] [address] Globulin 4.5 G/dL Normal [facility] ([place]) Comment on above: Order Comment: Speci men for CMP, LIP hemolyzed Performed By: #### M ORPH, CMP, ADIFF, MDW, CBC, GFR, LIP, ANEU ####John[address] [place], [place] [address] Glucose [Mass/Vol] 114 mg/dL High 70-105 Replaced by [facility] ([place]) Comment on above: Order Comment: Speci men for CMP, LIP hemolyzed Performed By: #### M ORPH, CMP, ADIFF, MDW, CBC, GFR, LIP, ANEU ####Johny [address] [place], [place] [address] Potassium [Moles/Vol] 4.0 mmol/L Normal 3.5-5.1 [facility] ([place]) Comment on above: Order Comment: Speci men for CMP, LIP hemolyzed Performed By: #### M ORPH, CMP, ADIFF, MDW, CBC, GFR, LIP, ANEU ####Johny [address] [place], [place] [address] Sodium [Moles/Vol] 139 mmol/L Normal 136-145 Replaced by [facility] ([place]) Comment on above: Order Comment: Speci men for CMP, LIP hemolyzed Performed By: #### M ORPH, CMP, ADLALA, MDW, CBC, GFR, LIP, ANEU ####Johny [address] [place], [place] [address] Total Protein 7.9 G/dL Normal 6.4-8.2 [facility] ([place]) Comment on above: Order Comment: Speci men for CMP, LIP hemolyzed Performed By: #### M ORPH, CMP, ADLALA, MDW, CBC, GFR, LIP, ANEU ####[address] [place], [place] [address] Urea nitrogen [Mass/Vol] 9 mg/dL Normal 7-18 [facility] ([place]) Comment on above: Order Comment: Speci men for CMP, LIP hemolyzed Performed By: #### M ORPH, CMP, ADLALA, MDW, CBC, GFR, LIP, ANEU ####Johny [address] [place], [place] [address] CT ABDOMEN/PELVIS W/O CONTRA STon 07-19-2023 CT ABDOMEN/PELVIS W/O CONTRAST Normal [facility] ([place]) LABORATORYOrdered By: SYSTEM SYSTEM on 07-19-2023 Albumin BCP dye [Mass/Vol] 3.4 G/dL Low 3.5 - 5.0 G/dL AO ADM SS Albumin/Globulin [Mass ratio] 0.8 {ratio} Low 1.1 - 2.5 ratio AO ADM SS ALP [Catalytic activity/Vol] 138 U/L High 40 - 135 U/L AO ADM SS ALT With P-5'-P [Catalytic activity/Vol] 47 U/L Normal 14 - 59 U/L AO ADM SS AST With P-5'-P [Catalytic activity/Vol] 43 U/L High 10 - 40 U/L AO ADM SS Basophil, Absolute 0.1 103/mcL Normal 0.0 - 0.2 10^3/mcL AO Workflow SS Basophils/100 WBC (Bld) 1.0 % Normal 0.0 - 2.5 % AO Workflow SS Bilirubin [Mass/Vol] 0.4 mg/dL Normal 0.2 - 1 .0 mg/dL AO ADM SS Comment on above: Interpretive Data: U se of this assay is not recommended for patients undergoing treatment with eltrombopag due to the potential for falsely elevated results. Calcium [Mass/Vol] 9.5 mg/dL Normal 8.4 - 10. 2 mg/dL AO ADM SS Chloride [Moles/Vol] 101 mmol/L Normal 98 - 10 7 mmol/L AO ADM SS CO2 [Moles/Vol] 29 mmol/L Normal 22 - 29 mmol/L AO ADM SS Creatinine [Mass/Vol] 1.27 mg/dL High 0.55 - 1.02 mg/dL AO ADM SS Electrolyte Balance 9.0 mEq/L Normal 4.0 - 15 .0 mEq/L AO ADM SS Eosinophil, Absolute 0.4 103/mcL Normal 0.0 - 0 .4 10^3/mcL AO Workflow SS Eosinophils/100 WBC (Bld) 4.6 % Normal 0.0 - 7.0 % AO Workflow SS Erythrocyte distribution width (RBC) [Ratio] 18.8 % High 11.5 - 14.5 % AO Workflow SS GFR/1.73 sq M.predicted among blacks MDRD (S/P/Bld) [Vol rate/Area] 54 ml/min/1.73sqm Invalid Interpretation Code AO Chemistry S Comment on above: Interpretive Data: GFR Population mean for , Non- Americans Ages 20-29 = 116 mL/min/1.73 sq.m. Ages 30-39 = 107 mL/min/1.73 sq.m. Ages 40-49 = 99 mL/min/1.73 sq.m. Ages 50-59 = 93 mL/min/1.73 sq.m. Ages 60-69 = 85 mL/min/1.73 sq.m. Ages 70+ = 75 mL/min/1.73 sq.m. Chronic Kidney Disease: Less than 60 mL/min/1.73 square meters End Stage Renal Disease: Less than 15 mL/min/1.73 square meters GFR/1.73 sq M.predicted among non-blacks MDRD (S/P/Bld) [Vol rate/Area] 44 ml/min/1.73sqm Invalid Interpretation Code AO Chemistry S Comment on above: Interpretive Data: GFR Population mean for , Non- Americans Ages 20-29 = 116 mL/min/1.73 sq.m. Ages 30-39 = 107 mL/min/1.73 sq.m. Ages 40-49 = 99 mL/min/1.73 sq.m. Ages 50-59 = 93 mL/min/1.73 sq.m. Ages 60-69 = 85 mL/min/1.73 sq.m. Ages 70+ = 75 mL/min/1.73 sq.m. Chronic Kidney Disease: Less than 60 mL/min/1.73 square meters End Stage Renal Disease: Less than 15 mL/min/1.73 square meters Globulin 4.5 G/dL Invalid Interpretation Code AO ADM SS Glucose [Mass/Vol] 114 mg/dL High 70 - 105 mg/dL AO ADM SS Hematocrit (Bld) [Volume fraction] 34.5 % Low 37.0 - 47.0 % AO Workflow SS Hemoglobin (Bld) [Mass/Vol] 11.6 G/dL Low 12.0 - 16.0 G/dL AO Workflow SS Lipase [Catalytic activity/Vol] 45 U/L Normal 16 - 77 U/L AO ADM SS Lymphocyte, Absolute 1.5 103/mcL Normal 0.8 - 3 .9 10^3/mcL AO Workflow SS Lymphocytes/100 WBC (Bld) 15.1 % Normal 10.0 - 50.0 % AO Workflow SS MCH (RBC) [Entitic mass] 27.9 pg Normal 27.0 - 31.2 pg AO Workflow SS MCHC 33.6 G/dL Normal 33.0 - 37.0 G/dL AO Workflow SS MCV (RBC) [Entitic vol] 83.2 fL Normal 80.0 - 94.0 fL AO Workflow SS Monocyte distribution width Auto (Bld) [Entitic vol] Not Performed 1 *NA* (07/19/23 12:20 PM) Invalid Interpretation Code 0.00 - 20.00 AO Hematology S Comment on above: Result Comment: MDW testing performed only on adult ER patients between the ages of 18-89 years. Monocyte, Absolute 0.6 103/mcL Normal 0.2 - 1.0 10^3/mcL AO Workflow SS Monocytes/100 WBC (Bld) 5.7 % Normal 1.7 - 13.0 % AO Workflow SS Neutrophil, Absolute 7.2 103/mcL High 2.9 - 6 .2 10^3/mcL AO Workflow SS Neutrophils/100 WBC (Bld) 73.6 % Normal 37.0 - 80.0 % AO Workflow SS Platelet mean volume (Bld) [Entitic vol] 7.4 fL Normal 7.4 - 10.4 fL AO Workflow SS Platelets (Bld) [#/Vol] 449 103/mcL High 130 - 400 10^3/mcL AO Workflow SS Potassium [Moles/Vol] 4.0 mmol/L Normal 3.5 - 5.1 mmol/L AO ADM SS Protein [Mass/Vol] 7.9 G/dL Normal 6.4 - 8.2 G/dL AO ADM SS RBC (Bld) [#/Vol] 4.14 106/mcL Low 4.20 - 5.4 0 10^6/mcL AO Workflow SS Sodium [Moles/Vol] 139 mmol/L Normal 136 - 145 mmol/L AO ADM SS Urea nitrogen [Mass/Vol] 9 mg/dL Normal 7 - 18 mg/dL AO ADM SS Urea nitrogen/Creatinine [Mass ratio] 7 ratio Normal 7 - 27 ratio AO ADM SS WBC (Bld) [#/Vol] 9.8 103/mcL Normal 4.6 - 10.8 10^3/mcL AO Workflow SS LABORATORYOrdered By: Chad Mata on 07-19-2023 Platelet Estimate Normal (07/19/23 12:20 PM) Normal AO Hematology S LABORATORYOrdered By: Jagjit hunter on 07-19-2023 Appearance (U) Clear (07/19/23 9:57 AM) Normal Clear AO Auto Urine SS Bilirubin Ql (U) Negative (07/19/23 9:57 AM) Normal Negative AO Auto Urine SS Color (U) Yellow (07/19/23 9:57 AM) Normal AO Auto Urine SS Glucose Test strip (U) [Mass/Vol] Negative Normal Negative AO Auto Urine SS Hemoglobin Auto test strip (U) [Mass/Vol] Negative (07/19/23 9:57 AM) Normal Negative AO Auto Urine SS Ketones Ql (U) Negative Normal Negative AO Auto Ur ine SS UA Leuk Est Trace *ABN* (07/19/23 9:57 AM) Invalid Interpretation Code Negative AO Auto Urine SS UA Nitrite Negative (07/19/23 9:57 AM) Normal Negative AO Auto Urine SS UA pH 7.0 (07/19/23 9:57 AM) Normal 5.0 - 8.0 AO Auto Urine SS UA Protein Negative Normal Negative AO Auto Urine SS UA RBC None Seen /HPF Normal None Seen AO Auto Ur ine SS UA Spec Grav 1.025 (07/19/23 9:57 AM) Normal 1.015-1.025 AO Auto Urine SS UA Specimen Type Void (07/19/23 9:57 AM) Normal AO Auto Urine SS UA Squam Epithelial 0-5 /HPF Invalid Interpretation Code None Seen AO Auto Urine SS UA Urobilinogen 0.2 E.U./dL Normal 0.2-1.0 AO Auto Urine SS WBC LM.HPF (Urine sed) [#/Area] 5-10 /HPF Invalid Interpretation Code None Seen AO Auto Urine SS LIPon 07-19-2023 Lipase Level 45 U/L Normal 16-77 [facility] ([place]) Comment on above: Performed By: #### M ORPH, CMP, EMANUEL, MDW, CBC, GFR, LIP, ANEU ####Johny [address] [place], [place] [address] UAon 07-19-2023 Color (U) Yellow Normal [facility] ([place]) Comment on above: Performed By: #### U A, UAMICAO ####Johny [address] [place] [id number] Glucose (U) [Mass/Vol] Negative Normal Negative [facility] [place]) Comment on above: Performed By: #### U A, UAMICAO ####Johny [address] [place], [place] [address] Ketones Ql (U) Negative Normal Negative [facility] ([place]) Comment on above: Performed By: #### U A, UAMICAO ####Johny [address] [place], [place] [address] UA Appear Clear Normal Clear [facility] ([place]) Comment on above: Performed By: #### U A, UAMICAO ####Johny [address] [place], [place] [address] UA Blood Negative Normal Negative [facility] ([place]) Comment on above: Performed By: #### U A, UAMICAO ####Johny [address] [place], [place] [address] UA Leuk Est Trace Abnormal Negative [facility] ([place]) Comment on above: Performed By: #### U A, UAMICAO ####Johny [address] [place] [address] UA Nitrite Negative Normal Negative [facility] ([place]) Comment on above: Performed By: #### U A, UAMICAO ####[address]y [address] [place] [phone] UA pH 7.0 Normal 5.0 - 8.0 [facility] ([place]) Comment on above: Performed By: #### U A, UAMICAO ####Johny [address] [place] [address] UA Protein Negative Normal Negative [facility] ([place]) Comment on above: Performed By: #### U A, UAMICAO ####Johny [address] [place] [address] UA Spec Grav 1.025 Normal 1.015-1.025 [facility] ([place]) Comment on above: Performed By: #### U A, UAMICAO ####[address] [place] [address] UA Specimen Type Void Normal [facility] ([place]) Comment on above: Performed By: #### U A, UAMICAO ####Johny [address] [place] [address] UA Urobilinogen 0.2 E.U./dL Normal 0.2-1.0 [facility] ([place]) Comment on above: Performed By: #### U A, UAMICAO ####[address] [place] [address] Urobilinogen (U) [Mass/Vol] Negative Normal Negative [facility] ([place]) Comment on above: Performed By: #### U A, UAMICAO ####Johny [address] [place] [address] .Auto Diffon 07-03-2023 Basophil, Absolute 0.1 10 3/mcL Normal 0.0-0.2 [facility]) Comment on above: Performed By: #### T ROPHS, ANEU, BMP, CBC, GFR, ADIFF, MDW, PBNP ####[address] [place] [address] Basophils/100 WBC (Bld) 0.8 % Normal 0.0-2.5 [facility] ([place]) Comment on above: Performed By: #### T RYLAN, ANEU, BMP, CBC, GFR, ADIFF, MDW, PBNP ####[address] [place], [place] [address] Eosinophil, Absolute 0.4 10 3/mcL Normal 0.0-0.4 [facility] [place] Comment on above: Performed By: #### T ROPLENNIE, ANEU, BMP, CBC, GFR, ADIFF, MDW, PBNP ####[address] [place], [place] [address] Eosinophils/100 WBC (Bld) 3.5 % Normal 0.0-7.0 [facility] ([place]) Comment on above: Performed By: #### T RYLAN, ANEU, BMP, CBC, GFR, ADIFF, MDW, PBNP ####[address] [place], [place] [address] Lymphocyte, Absolute 1.8 10 3/mcL Normal 0.8-3.9 [facility] [place] Comment on above: Performed By: #### T RYLAN, ANEU, BMP, CBC, GFR, ADIFF, MDW, PBNP ####[address] [place], [place] [address] Lymphocytes/100 WBC (Bld) 14.5 % Normal 10.0-50.0 [facility] ([place]) Comment on above: Performed By: #### T RYLAN, ANEU, BMP, CBC, GFR, ADIFF, MDW, PBNP ####Johny [address] [place], [place] [address] Monocyte, Absolute 0.9 10 3/mcL Normal 0.2-1.0 [facility] ([place]) Comment on above: Performed By: #### T ROPLENNIE, ANEU, BMP, CBC, GFR, ADIFF, MDW, PBNP ####[address] [place], [place] [address] Monocytes/100 WBC (Bld) 6.9 % Normal 1.7-13.0 [facility] ([place]) Comment on above: Performed By: #### T RYLAN, ANEU, BMP, CBC, GFR, JUAN CARLOS CASTELLANOS, PBNICHOLE ####[address] [place], [place] [address] Neutrophils/100 WBC (Bld) 74.3 % Normal 37.0-80.0 [facility] ([place]) Comment on above: Performed By: #### T RYLAN, ANEU, BMP, CBC, GFR, JUAN CARLOS CASTELLANOS, PBNICHOLE ####[address] [place], [place] [address] .GFRon 07-03-2023 GFR Non- 41 ml/min/1.73sqm Normal [facility] ([place]) Comment on above: Result Comment: GFR Population mean for , Non- Americans Ages 20-29 = 116 mL/min/1.73 sq.m. Ages 30-39 = 107 mL/min/1.73 sq.m. Ages 40-49 = 99 mL/min/1.73 sq.m. Ages 50-59 = 93 mL/min/1.73 sq.m. Ages 60-69 = 85 mL/min/1.73 sq.m. Ages 70+ = 75 mL/min/1.73 sq.m.Chronic Kidney Disease: Less than 60 mL/min/1.73 square metersEnd Stage Renal Disease: Less than 15 mL/min/1.73 square meters Performed By: #### T RYLAN, ANEU, BMP, CBC, GFR, JUAN CARLOS CASTELLANOS, PBNP ####[address] [place], [place] [address] GFR 50 ml/min/1.73sqm Normal [facility] ([place]) Comment on above: Result Comment: GFR Population mean for , Non- Americans Ages 20-29 = 116 mL/min/1.73 sq.m. Ages 30-39 = 107 mL/min/1.73 sq.m. Ages 40-49 = 99 mL/min/1.73 sq.m. Ages 50-59 = 93 mL/min/1.73 sq.m. Ages 60-69 = 85 mL/min/1.73 sq.m. Ages 70+ = 75 mL/min/1.73 sq.m.Chronic Kidney Disease: Less than 60 mL/min/1.73 square metersEnd Stage Renal Disease: Less than 15 mL/min/1.73 square meters Performed By: #### T RYLAN, ANEU, BMP, CBC, GFR, ADIFF, W, PBNP ####[address] [place], [place] [address] .MDWon 07-03-2023 Monocyte Distribution Width 21.92 High 0.00-20.00 [facility] ([place]) Comment on above: Result Comment: For adults in ED, MDW>20.0 may be associated with a higher risk of sepsis during the first 12hrs of hospital admission Performed By: #### T RYLAN, ANEU, BMP, CBC, GFR, ADIFF, MDW, PBNP ####[address] [place], [place] [address] .NEUABSon 07-03-2023 Neutrophil, Absolute 9.2 10 3/mcL High 2.9-6.2 [facility] ([place]) Comment on above: Performed By: #### T RYLAN, ANEU, BMP, CBC, GFR, ADIFF, JUAN CARLOS, PBNP ####[address] [place], [place] [address] BMPon 07-03-2023 BUN/Creatinine Ratio 10 ratio Normal 7-27 [facility] ([place]) Comment on above: Performed By: #### T RYLAN, ANEU, BMP, CBC, GFR, ADIFF, W, PBNP ####[address] [place], [place] [address] Calcium [Mass/Vol] 8.4 mg/dL Normal 8.4-10.2 Replaced by [facility] ([place]) Comment on above: Performed By: #### T RYLAN, ANEU, BMP, CBC, GFR, ADIFF, W, PBNP ####[address] [place], [place] [address] Chloride [Moles/Vol] 105 mmol/L Normal 98-107 [facility] ([place]) Comment on above: Performed By: #### T RYLAN, ANEU, BMP, CBC, GFR, ADIFF, MDW, PBNP ####[address] [place], [place] [address] CO2 [Moles/Vol] 28 mmol/L Normal 22-29 [facility] ([place]) Comment on above: Performed By: #### T RYLAN, ANEU, BMP, CBC, GFR, ADIFF, MDW, PBNP ####[address] [place], [place] [address] Creatinine [Mass/Vol] 1.35 mg/dL High 0.55-1.02 [facility] ([place]) Comment on above: Performed By: #### T RYLAN, ANEU, BMP, CBC, GFR, ADIFF, MDW, PBNP ####[address] [place], [place] [address] Electrolyte Balance 9.0 mEq/L Normal 4.0-15.0 [facility]ly [facility] ([place]) Comment on above: Performed By: #### T RYLAN, ANEU, BMP, CBC, GFR, ADIFF, MDW, PBNP ####[address] [place], [place] [address] Glucose [Mass/Vol] 101 mg/dL Normal 70-105 Replaced by [facility] ([place]) Comment on above: Performed By: #### T RYLAN, ANEU, BMP, CBC, GFR, ADIFF, MDW, PBNP ####[address] [place], [place] [address] Potassium [Moles/Vol] 3.8 mmol/L Normal 3.5-5.1 [facility] ([place]) Comment on above: Performed By: #### T RYLAN, ANEU, BMP, CBC, GFR, ADIFF, MDW, PBNP ####[address] [place], [place] [address] Sodium [Moles/Vol] 142 mmol/L Normal 136-145 Replaced by [facility] ([place] Comment on above: Performed By: #### T RYLAN, ANEU, BMP, CBC, GFR, ADIFF, MDW, PBNP ####[address] [place], [place] [address] Urea nitrogen [Mass/Vol] 14 mg/dL Normal 7-18 [facility] ([place]) Comment on above: Performed By: #### T RYLAN, ANEU, BMP, CBC, GFR, EMANUEL, W, PBNP ####[address] [place], [place] [address] CBCon 07-03-2023 Erythrocyte distribution width (RBC) [Ratio] 18.6 % High 11.5-14.5 [facility] ([place]) Comment on above: Performed By: #### T RYLAN, ANEU, BMP, CBC, GFR, ADLALA, MDW, PBNP ####[address] [place], [place] [address] Hematocrit (Bld) [Volume fraction] 34.4 % Low 37.0-47.0 [facility] ([place]) Comment on above: Performed By: #### T RYLAN, ANEU, BMP, CBC, GFR, ADLALA, W, PBNP ####[address] [place], [place] [address] Hgb 11.1 G/dL Low 12.0-16.0 [facility] ([place]) Comment on above: Performed By: #### T RYLAN, ANEU, BMP, CBC, GFR, ADLALA, MDW, PBNP ####[address] [place], [place] [address] MCH (RBC) [Entitic mass] 27.7 pg Normal 27.0-31.2 [facility] ([place]) Comment on above: Performed By: #### T RYLAN, ANEU, BMP, CBC, GFR, ADIFF, MDW, PBNP ####[address] [place], [place] [address] MCHC 32.2 G/dL Low 33.0-37.0 [facility] ([place]) Comment on above: Performed By: #### T RYLAN, ANEU, BMP, CBC, GFR, ADIFF, MDW, PBNP ####[address] [place], [place] [address] MCV (RBC) [Entitic vol] 85.8 fL Normal 80.0-94.0 [facility] ([place]) Comment on above: Performed By: #### T RYLAN, ANEU, BMP, CBC, GFR, ADIFF, W, PBNP ####[address] [place], [place] [address] Platelet 470 10 3/mcL High 130-400 [facility] ([place]) Comment on above: Performed By: #### T RYLAN, ANEU, BMP, CBC, GFR, ADIFF, MDW, PBNP ####[address] [place], [place] [address] Platelet mean volume (Bld) [Entitic vol] 7.3 fL Low 7.4-10.4 [facility] ([place]) Comment on above: Performed By: #### T RYALN, ANEU, BMP, CBC, GFR, ADIFF, MDW, PBNP ####[address] [place], [place] [address] RBC 4.01 10 6/mcL Low 4.20-5.40 [facility] ([place]) Comment on above: Performed By: #### T RYLAN, ANEU, BMP, CBC, GFR, ADIFF, MDW, PBNP ####[address] [place], [place] [address] WBC 12.4 10 3/mcL High 4.6-10.8 [facility] ([place]) Comment on above: Performed By: #### T RYLAN, ANEU, BMP, CBC, GFR, ADIFF, MDW, PBNP ####[address] [place], [place] [address] LABORATORYOrdered By: SYSTEM SYSTEM on 07-03-2023 Troponin I.cardiac DL <= 0.01 ng/mL [Mass/Vol] 8 ng/L Normal 0 - 51 ng/L AO ADM SS Comment on above: Interpretive Data: H igh Sensitive Troponin I Reference Ranges: Female: 0-51 ng/L Male: 0-76 ng/L Testing performed on [employer] using a homogeneous sandwich chemiluminescent immunoassay based on Solvate technology. Basophil, Absolute 0.1 103/mcL Normal 0.0 - 0.2 10^3/mcL AO Workflow SS Basophils/100 WBC (Bld) 0.8 % Normal 0.0 - 2.5 % AO Workflow SS Calcium [Mass/Vol] 8.4 mg/dL Normal 8.4 - 10. 2 mg/dL AO ADM SS Chloride [Moles/Vol] 105 mmol/L Normal 98 - 10 7 mmol/L AO ADM SS CO2 [Moles/Vol] 28 mmol/L Normal 22 - 29 mmol/L AO ADM SS Creatinine [Mass/Vol] 1.35 mg/dL High 0.55 - 1.02 mg/dL AO ADM SS Electrolyte Balance 9.0 mEq/L Normal 4.0 - 15 .0 mEq/L AO ADM SS Eosinophil, Absolute 0.4 103/mcL Normal 0.0 - 0 .4 10^3/mcL AO Workflow SS Eosinophils/100 WBC (Bld) 3.5 % Normal 0.0 - 7.0 % AO Workflow SS Erythrocyte distribution width (RBC) [Ratio] 18.6 % High 11.5 - 14.5 % AO Workflow SS GFR/1.73 sq M.predicted among blacks MDRD (S/P/Bld) [Vol rate/Area] 50 ml/min/1.73sqm Invalid Interpretation Code AO Chemistry S Comment on above: Interpretive Data: GFR Population mean for , Non- Americans Ages 20-29 = 116 mL/min/1.73 sq.m. Ages 30-39 = 107 mL/min/1.73 sq.m. Ages 40-49 = 99 mL/min/1.73 sq.m. Ages 50-59 = 93 mL/min/1.73 sq.m. Ages 60-69 = 85 mL/min/1.73 sq.m. Ages 70+ = 75 mL/min/1.73 sq.m. Chronic Kidney Disease: Less than 60 mL/min/1.73 square meters End Stage Renal Disease: Less than 15 mL/min/1.73 square meters GFR/1.73 sq M.predicted among non-blacks MDRD (S/P/Bld) [Vol rate/Area] 41 ml/min/1.73sqm Invalid Interpretation Code AO Chemistry S Comment on above: Interpretive Data: GFR Population mean for , Non- Americans Ages 20-29 = 116 mL/min/1.73 sq.m. Ages 30-39 = 107 mL/min/1.73 sq.m. Ages 40-49 = 99 mL/min/1.73 sq.m. Ages 50-59 = 93 mL/min/1.73 sq.m. Ages 60-69 = 85 mL/min/1.73 sq.m. Ages 70+ = 75 mL/min/1.73 sq.m. Chronic Kidney Disease: Less than 60 mL/min/1.73 square meters End Stage Renal Disease: Less than 15 mL/min/1.73 square meters Glucose [Mass/Vol] 101 mg/dL Normal 70 - 105 mg/dL AO ADM SS Hematocrit (Bld) [Volume fraction] 34.4 % Low 37.0 - 47.0 % AO Workflow SS Hemoglobin (Bld) [Mass/Vol] 11.1 G/dL Low 12.0 - 16.0 G/dL AO Workflow SS Lymphocyte, Absolute 1.8 103/mcL Normal 0.8 - 3 .9 10^3/mcL AO Workflow SS Lymphocytes/100 WBC (Bld) 14.5 % Normal 10.0 - 50.0 % AO Workflow SS MCH (RBC) [Entitic mass] 27.7 pg Normal 27.0 - 31.2 pg AO Workflow SS MCHC 32.2 G/dL Low 33.0 - 37.0 G/dL AO Workflow SS MCV (RBC) [Entitic vol] 85.8 fL Normal 80.0 - 94.0 fL AO Workflow SS Monocyte distribution width Auto (Bld) [Entitic vol] 21.92 1 High 0.00 - 20.00 AO Workflow SS Comment on above: Result Comment: For adults in ED, MDW>20.0 may be associated with a higher risk of sepsis during the first 12hrs of hospital admission Monocyte, Absolute 0.9 103/mcL Normal 0.2 - 1.0 10^3/mcL AO Workflow SS Monocytes/100 WBC (Bld) 6.9 % Normal 1.7 - 13.0 % AO Workflow SS Natriuretic peptide.B prohormone N-Terminal [Mass/Vol] 53 pg/mL Normal 0 - 125 pg/mL AO ADM SS Comment on above: Interpretive Data: N T-proBNP results of less than 300 pg/mL effectively rules out acute congestive heart failure with 99% negative predictive value. Neutrophil, Absolute 9.2 103/mcL High 2.9 - 6 .2 10^3/mcL AO Workflow SS Neutrophils/100 WBC (Bld) 74.3 % Normal 37.0 - 80.0 % AO Workflow SS Platelet mean volume (Bld) [Entitic vol] 7.3 fL Low 7.4 - 10.4 fL AO Workflow SS Platelets (Bld) [#/Vol] 470 103/mcL High 130 - 400 10^3/mcL AO Workflow SS Potassium [Moles/Vol] 3.8 mmol/L Normal 3.5 - 5.1 mmol/L AO ADM SS RBC (Bld) [#/Vol] 4.01 106/mcL Low 4.20 - 5.4 0 10^6/mcL AO Workflow SS Sodium [Moles/Vol] 142 mmol/L Normal 136 - 145 mmol/L AO ADM SS Troponin I.cardiac DL <= 0.01 ng/mL [Mass/Vol] 7 ng/L Normal 0 - 51 ng/L AO ADM SS Comment on above: Interpretive Data: H igh Sensitive Troponin I Reference Ranges: Female: 0-51 ng/L Male: 0-76 ng/L Testing performed on [employer] using a homogeneous sandwich chemiluminescent immunoassay based on Solvate technology. Urea nitrogen [Mass/Vol] 14 mg/dL Normal 7 - 18 mg/dL AO ADM SS Urea nitrogen/Creatinine [Mass ratio] 10 ratio Normal 7 - 27 ratio AO ADM SS WBC (Bld) [#/Vol] 12.4 103/mcL High 4.6 - 10.8 10^3/mcL AO Workflow SS PBNPon 07-03-2023 Natriuretic peptide B (Bld) [Mass/Vol] 53 pg/mL Normal 0-125 [facility] ([place]) Comment on above: Result Comment: NT-p roBNP results of less than 300 pg/mL effectivelyrules out acute congestive heart failure with 99% negative predictive value. Performed By: #### T ROPHS, ANEU, BMP, CBC, GFR, ADLALA, W, PBNP ####[address] [place], [place] [address] Formerly [facility] 07-03-2023 High Sensitivity Troponin I 8 ng/L Normal 0-51 [facility] ([place]) Comment on above: Result Comment: High Sensitive Troponin I Reference Ranges:Female: 0-51 ng/LMale: 0-76 ng/LTesting performed on [employer] using a homogeneous sandwich chemiluminescent immunoassay based on Solvate technology. Performed By: #### T RYLAN ####[address] [place], [place] [address] High Sensitivity Troponin I 7 ng/L Normal 0-51 [facility] ([place]) Comment on above: Result Comment: High Sensitive Troponin I Reference Ranges:Female: 0-51 ng/LMale: 0-76 ng/LTesting performed on [employer] using a homogeneous sandwich chemiluminescent immunoassay based on Solvate technology. Performed By: #### T RYLAN, ANEU, BMP, CBC, GFR, ADIFF, MDW, PBNP ####[address] [place], [place] [address] XR CHEST 1 VIEWon 07-03-2023 XR CHEST 1 VIEW Normal [facility] ([place]) CNOVon 06-20-2023 CNOV Office Visit (UCWSTR ) KAMALA GRAY ([id number]) 1970 F Date Time Provider Department 06/20/23 12:15 PM CORNELIUS BANERJEE RUST During your visit today, we recorded the following information about you: Temperature Pulse Respiration Blood pressure 98 degrees 86/minute 18/minute 126/76 Weight 132 kg Cornelius Banerjee PA 06/20/2023 12:22 PM Signed This note was created using [employer]. Subjective May Isaac is a 52 year old female. HPI 52-year-old female presents for concern for yeast infection under left breast. She has had this in the past. She denies any recent antibiotic use. She does have history of diabetes. She denies any fevers. She states that she noticed the rash about 3 days ago. She reports she has had nystatin powder in the past which helped. She denies any rash anywhere else. No other complaint. PAST MEDICAL HISTORY Diagnosis Date Asthma with COPD (HCC) Celiac disease CKD (chronic kidney disease) Diabetes mellitus type 2 (HCC) Gout Hyperlipidemia Hypertension Hypothyroidism Microcytic anemia Obesity, Class III, BMI 40-49.9 (morbid obesity) ([facility]) Renal calculi No past surgical history on file. ALLERGIES Hydrochlorothiazide, Naproxen, and Asa [Salicylates] MEDICATIONS apixaban (ELIQUIS) 5 mg tab(s) Take 5 mg by mouth once daily. ondansetron orally disintegrating (ZOFRAN ODT) 4 mg disintegrating tablet Take 1 tablet by mouth every 6 hours as needed for nausea/vomiting. progesterone micronized (PROMETRIUM) 200 mg capsule magnesium oxide 200 mg magnesium tab Take 1 tablet by mouth daily at bedtime. atogepant (QULIPTA) 30 mg tablet Take by mouth. budesonide-formoterol (SYMBICORT) 160-4.5 mcg/actuation inhaler Inhale 2 Puffs as instructed. fremanezumab-vfrm (AJOVY AUTOINJECTOR) 225 mg/1.5 mL auto-injector Inject 225 mg subcutaneously once every month. Do not shake. megestrol (MEGACE) 40 mg tablet Take 40 mg by mouth once daily. TRELEGY ELLIPTA 100-62.5-25 mcg INHALE 1 PUFF DAILY with good oral care levothyroxine (SYNTHROID) 300 mcg tablet Take by mouth. Not taking acetaminophen(TYLENOL 325 MG TAB) nystatin (MYCOSTATIN) powder Apply 1 application to affected area three times a day. benzonatate (TESSALON PERLES) 100 mg capsule Take 2 capsules by mouth three times daily as needed. (Patient not taking: Reported on 06/20/2023) guaiFENesin (MUCINEX FAST-MAX CHEST-CONGEST) 100 mg/5 mL syrup Take 20 mL by mouth every 4 hours as needed. (Patient not taking: Reported on 06/20/2023) No family history on file. Social History Tobacco Use Smoking status: Never Smokeless tobacco: Never Substance Use Topics Alcohol use: No Drug use: Never Review of Systems Constitutional: Negative for chills and fever. HENT: Negative for congestion, ear pain and sore throat. Respiratory: Negative for cough and shortness of breath. Cardiovascular: Negative for chest pain. Gastrointestinal: Negative for diarrhea and vomiting. Skin: Positive for rash. Objective BP 126/76 Pulse 86 Temp 36.7 ?C (98 ?F) Resp 18 Wt 132 kg (291 lb 0.1 oz) LMP (LMP Unknown) SpO2 97% Physical Exam Vitals and nursing note reviewed. Constitutional: General: She is not in acute distress. Appearance: Normal appearance. She is not toxic-appearing. HENT: Nose: Nose normal. Mouth/Throat: Mouth: Mucous membranes are moist. Eyes: Conjunctiva/sclera: Conjunctivae normal. Cardiovascular: Rate and Rhythm: Normal rate and regular rhythm. Pulmonary: Effort: Pulmonary effort is normal. Breath sounds: Normal breath sounds. Skin: General: Skin is warm and dry. Findings: Rash present. Comments: Erythematous rash noted under left breast appears consistent with intertrigo. No fluctuance. No abscess. No breast tenderness. Neurological: Mental Status: She is alert. Assessment and Plan ASSESSMENT/PLAN: 1. Intertrigo - ICD9: 695.89, ICD10: L30.4 -Rx for nystatin powder. Patient states that this has helped her in the past. -Advised to keep the area clean and dry is much as possible. -Follow-up with PCP if symptoms persist. Diagnosis and treatment plan were discussed and questions were answered to the patient's satisfaction. Pt acknowledged understanding of concepts and follow up plan. Specific signs and symptoms that would indicate the need for higher level of care were discussed in detail warranting prompt ER evaluation. ROBLES Koehler Allergies As of Date: 06/20/2023 Noted Allergy Reaction HYDROCHLOROTHIAZIDE 09/28/2019 16 - Unknown NAPROXEN 11/05/2018 11 - Vomiting ASA (SALICYLATES) 12/21/2007 Date Reviewed: 06/20/2023 Reviewed by: Nessa Montes MA - Fully Assessed Reason for Visit: Rash [1087] Cmt: ? yeast infection under left breast x 2-3 days Primary Visit Diagnosis:Intertrigo [L30.4] Order(s):nystatin (MYCOSTATIN) powderApply 1 application t (more content not included)... Normal [facility] CNOVon 05-13-2023 CNOV Office Visit (UCWSTR ) KAMALA GRAY ([id number]) 1970 F Date Time Provider Department 05/13/23 2:30 PM TRACEE CHAKRABORTY During your visit today, we recorded the following information about you: Temperature Pulse Respiration Blood pressure 96.9 degrees 85/minute 16/minute 180/90 Weight 130.7 kg Tracee Chakraborty APRN.WRAPPING CLERK 05/13/2023 2:55 PM Signed This note was created using [employer]. Subjective Kamala Gray is a 52 year old female. 52 year old female with PMH thyroid presents for leg swelling. Acute onset over past few weeks, but worsening. She was seen here on 05/04/23 for same. At that time had a foot and ankle xray that were negative. States that swelling has increased in right lower extremity. Can't get my shoe in The history is provided by the patient. No foreign languages professor was used. Pain (foot) Review of Systems Objective BP 180/90 (BP Site: Left Arm, BP Position: Sitting) Pulse 85 Temp 36.1 ?C (96.9 ?F) (Tympanic) Resp 16 Wt 130.7 kg (288 lb 2.3 oz) LMP (LMP Unknown) SpO2 99% Physical Exam Vitals and nursing note reviewed. Constitutional: General: She is not in acute distress. Appearance: Normal appearance. She is obese. Musculoskeletal: General: Swelling and tenderness present. No deformity or signs of injury. Normal range of motion. Right lower leg: Edema present. Left lower leg: No edema. Neurological: Mental Status: She is alert. Assessment and Plan ASSESSMENT/PLAN: 1. Right leg swelling - ICD9: 729.81, ICD10: M79.89 Has had pain for a month. Seen here 05/05/23 Xray negative Presents with progressing swelling. Diffuse right lower extremity swelling Concerns for DVT. Unable to obtain US @ 2:30 on a Tuesday Referred to ED Declines EMS, mom to drive Tracee Chakraborty APRN.WRAPPING CLERK Allergies As of Date: 05/13/2023 Noted Allergy Reaction HYDROCHLOROTHIAZIDE 09/28/2019 16 - Unknown NAPROXEN 11/05/2018 11 - Vomiting ASA (SALICYLATES) 12/21/2007 Date Reviewed: 05/13/2023 Reviewed by: Lorna Rousseau, INEZ - Fully Assessed Reason for Visit: Pain (foot) [760] Primary Visit Diagnosis:Right leg swelling [M79.89] Prescriptions as of 05/13/2023 - apixaban (ELIQUIS) 5 mg tab(s) Take 5 mg by mouth once daily. - ondansetron orally disintegrating (ZOFRAN ODT) 4 mg disintegrating tablet Take 1 tablet by mouth every 6 hours as needed for nausea/vomiting. - progesterone micronized (PROMETRIUM) 200 mg capsule - magnesium oxide 200 mg magnesium tab Take 1 tablet by mouth daily at bedtime. - atogepant (QULIPTA) 30 mg tablet Take by mouth. - budesonide-formoterol (SYMBICORT) 160-4.5 mcg/actuation inhaler Inhale 2 Puffs as instructed. - fremanezumab-vfrm (AJOVY AUTOINJECTOR) 225 mg/1.5 mL auto-injector Inject 225 mg subcutaneously once every month. Do not shake. - benzonatate (TESSALON PERLES) 100 mg capsule Take 2 capsules by mouth three times daily as needed. - nystatin (MYCOSTATIN) powder Apply 1 application to affected area three times daily. - guaiFENesin (MUCINEX FAST-MAX CHEST-CONGEST) 100 mg/5 mL syrup Take 20 mL by mouth every 4 hours as needed. - megestrol (MEGACE) 40 mg tablet Take 40 mg by mouth once daily. - TRELEGY ELLIPTA 100-62.5-25 mcg INHALE 1 PUFF DAILY with good oral care - levothyroxine (SYNTHROID) 300 mcg tablet Take by mouth. Not taking - acetaminophen(TYLENOL 325 MG TAB) Problem List As Of Date 05/13/2023 Noted Resolved HYPOTHYROIDISM NOS [E03.9] 12/21/2007 Encounter Status:Closed by TRACEE CHAKRABORTY on 05/13/23 [facility] CNOVon 05-04-2023 CNOV Office Visit (UCWSTR ) KAMALA GRAY ([id number]) 1970 F Date Time Provider Department 05/04/23 12:30 PM [facility] During your visit today, we recorded the following information about you: Temperature Pulse Respiration Blood pressure 97.7 degrees 82/minute 18/minute 132/84 Weight 138.8 kg Isaac Valentine APRN.WRAPPING CLERK 05/04/2023 1:22 PM Signed Subjective HPI Nontoxic-appearing female presents urgent care chief complaint right ankle and foot pain. Duration of symptoms 1 month. Associated symptoms right ankle foot pain. States possible fracture of base of second metatarsal in March of this year. Was placed in a boot. Referred to podiatry. Today with persistent discomfort. Most of pain is around heel area. No new injuries. No numbness no tingling. No decrease sensation. Denies any fever body aches chills productive cough chest pain shortness of breath pleuritic pain hemoptysis nausea vomiting abdominal pain change in bowel or bladder habits. Past medical history prescription medication use and allergies reviewed. .Patient presents with: right ankle and heel pain: X 1 month-cannot recall an injury this time PAST MEDICAL HISTORY Diagnosis Date Asthma with [...] every 6 hours as needed for nausea/vomiting. progesterone micronized (PROMETRIUM) 200 mg capsule magnesium oxide 200 mg magnesium tab Take 1 tablet by mouth daily at bedtime. atogepant (QULIPTA) 30 mg tablet Take by mouth. budesonide-formoterol (SYMBICORT) 160-4.5 mcg/actuation inhaler Inhale 2 Puffs as instructed. fremanezumab-vfrm (AJOVY AUTOINJECTOR) 225 mg/1.5 mL auto-injector Inject 225 mg subcutaneously once every month. Do not shake. nystatin (MYCOSTATIN) powder Apply 1 application to affected area three times daily. megestrol (MEGACE) 40 mg tablet Take 40 mg by mouth once daily. TRELEGY ELLIPTA 100-62.5-25 mcg INHALE 1 PUFF DAILY with good oral care levothyroxine (SYNTHROID) 300 mcg tablet Take by mouth. Not taking acetaminophen(TYLENOL 325 MG TAB) apixaban (ELIQUIS) 5 mg tab(s) Take 5 mg by mouth once daily. benzonatate (TESSALON PERLES) 100 mg capsule Take 2 capsules by mouth three times daily as needed. (Patient not taking: Reported on 03/08/2023) guaiFENesin (MUCINEX FAST-MAX CHEST-CONGEST) 100 mg/5 mL syrup Take 20 mL by mouth every 4 hours as needed. (Patient not taking: Reported on 03/08/2023) No family history on file. Social History Tobacco Use Smoking status: Never Smokeless tobacco: Never Substance Use Topics Alcohol use: No Drug use: Never BP 132/84 Pulse 82 Temp 36.5 ?C (97.7 ?F) (Tympanic) Resp 18 Wt (!) 138.8 kg (306 lb) LMP (LMP Unknown) SpO2 100% Review of Systems Constitutional: Negative for chills, fever and malaise/fatigue. HENT: Negative for congestion, ear discharge, ear pain, sinus pain and sore throat. Eyes: Negative for blurred vision, pain, discharge and redness. Respiratory: Negative for cough, hemoptysis, sputum production, shortness of breath, wheezing and stridor. Cardiovascular: Negative for chest pain. Gastrointestinal: Negative for abdominal pain, diarrhea, nausea and vomiting. Musculoskeletal: Negative for myalgias. Skin: Negative for itching and rash. Neurological: Negative for dizziness and headaches. Objective Physical Exam Constitutional: General: She is not in acute distress. Appearance: She is not toxic-appearing. HENT: Head: Normocephalic. Nose: Nose normal. Eyes: Pupils: Pupils are equal, round, and reactive to light. Cardiovascular: Rate and Rhythm: Normal rate. Pulmonary: Effort: Pulmonary effort is normal. No respiratory distress. Musculoskeletal: Cervical back: Normal range of motion. Right ankle: No swelling, deformity, ecchymosis or lacerations. Tenderness present over the lateral malleolus. Normal range of motion. Right Achilles Tendon: No tenderness. Right foot: Normal range of motion and normal capillary refill. Bony tenderness present. No swelling, deformity or tenderness. Normal pulse. Feet: Comments: Neurovascular intact. No breaks in skin. Skin: General: Skin is warm and dry. Neurological: General: No focal deficit present. Mental Status: She is alert. ASSESSMENT/PLAN: 1. Foot pain, right - ICD9: 729.5, ICD10: M79.671 (primary diagnosis) - XR FOOT GENERAL 3V AP/LAT/OBL RIGHT - XR ANKLE GENERAL 3V AP/LAT/OBL RIGHT 2. Acute right ankle pain - ICD9: 719 (more content not included)... Normal [facility] No Panel Informationon 05-03 IMPRESSION: Overall findings unchanged. Groundskeeping Maintenance: ADAM Transcribe Date/Time: May 04 2023 1:00P Dictated by : ISABELLA NAGEL MD This examination was interpreted and the report reviewed and electronically signed by: ISABELLA NAGEL MD on May 04 2023 1:04PM [facility] DIVISION OF RADIOLOGY Radiology Study observation (narrative) [facility] No Panel InformationOrdered By: [facility]cf Provider on 05-04-2023 [facility] [facility] X[facility] ANKLE 3V AP/LAT/OBL RTon 05-04-2023 XR ANKLE 3V AP/LAT/OBL RT * * *Final Report* * * DATE OF EXAM: May 04 2023 12:58PM WOX [id number] - XR ANKLE 3V AP/LAT/OBL RT / PROCEDURE REASON: multiple diagnoses * * * * Physician Interpretation * * * * EXAM TITLE: XR ANKLE 3V AP/LAT/OBL RT, XR FOOT 3V AP/LAT/OBL RT EXAM DATE/TIME: 05/04/2023 12:58 PM COMPARISON: X-ray ankle and foot on 04/15/2023 CLINICAL INDICATION/HISTORY: Pain. TECHNIQUE: AP, mortise and lateral views of the right ankle are presented. AP, oblique and lateral views of the right foot are also presented. FINDINGS: No new fractures or subluxations are noted. Stable appearance of the base of the second metatarsal. Calcaneal enthesophyte noted. The mortise and other joint spaces are well preserved. There is no ankle joint effusion. The mineralization of the bones is normal. There is bimalleolar mild soft tissue swelling. IMPRESSION: Overall findings unchanged. Groundskeeping Maintenance: PSCB Transcribe Date/Time: May 04 2023 1:00P Dictated by : ISABELLA NAGEL MD This examination was interpreted and the report reviewed and electronically signed by: ISABELLA NAGEL MD on May 04 2023 1:04PM EST [id number] N Normal [facility] XR Ankle - right AP and Late ral and obliqueon 05-04-2023 * * *Final Report* * * DATE OF EXAM: May 04 2023 12:58PM WOX [id number] - XR ANKLE 3V AP/LAT/OBL RT / PROCEDURE REASON: multiple diagnoses * * * * Physician Interpretation * * * * EXAM TITLE: XR ANKLE 3V AP/LAT/OBL RT, XR FOOT 3V AP/LAT/OBL RT EXAM DATE/TIME: 05/04/2023 12:58 PM COMPARISON: X-ray ankle and foot on 04/15/2023 CLINICAL INDICATION/HISTORY: Pain. TECHNIQUE: AP, mortise and lateral views of the right ankle are presented. AP, oblique and lateral views of the right foot are also presented. FINDINGS: No new fractures or subluxations are noted. Stable appearance of the base of the second metatarsal. Calcaneal enthesophyte noted. The mortise and other joint spaces are well preserved. There is no ankle joint effusion. The mineralization of the bones is normal. There is bimalleolar mild soft tissue swelling. DIVISION OF RADIOLOGY Provider, [facility] - 05/04/2023 * * *Final Report* * * DATE OF EXAM: May 04 2023 12:58PM WOX [id number] - XR ANKLE 3V AP/LAT/OBL RT / PROCEDURE REASON: multiple diagnoses * * * * Physician Interpretation * * * * EXAM TITLE: XR ANKLE 3V AP/LAT/OBL RT, XR FOOT 3V AP/LAT/OBL RT EXAM DATE/TIME: 05/04/2023 12:58 PM COMPARISON: X-ray ankle and foot on 04/15/2023 CLINICAL INDICATION/HISTORY: Pain. TECHNIQUE: AP, mortise and lateral views of the right ankle are presented. AP, oblique and lateral views of the right foot are also presented. FINDINGS: No new fractures or subluxations are noted. Stable appearance of the base of the second metatarsal. Calcaneal enthesophyte noted. The mortise and other joint spaces are well preserved. There is no ankle joint effusion. The mineralization of the bones is normal. There is bimalleolar mild soft tissue swelling. IMPRESSION IMPRESSION: Overall findings unchanged. Groundskeeping Maintenance: ADAM Transcribe Date/Time: May 04 2023 1:00P Dictated by : ISABELLA NAGEL MD This examination was interpreted and the report reviewed and electronically signed by: ISABELLA NAGEL MD on May 04 2023 1:04PM EST [facility] XR FOOT 3V AP/LAT/OBL RTon 0 05-04-2023 XR FOOT 3V AP/LAT/OBL RT * * *Final Report* * * DATE OF EXAM: May 04 2023 12:58PM WOX [id number] - XR FOOT 3V AP/LAT/OBL RT / PROCEDURE REASON: multiple diagnoses * * * * Physician Interpretation * * * * EXAM TITLE: XR ANKLE 3V AP/LAT/OBL RT, XR FOOT 3V AP/LAT/OBL RT EXAM DATE/TIME: 05/04/2023 12:58 PM COMPARISON: X-ray ankle and foot on 04/15/2023 CLINICAL INDICATION/HISTORY: Pain. TECHNIQUE: AP, mortise and lateral views of the right ankle are presented. AP, oblique and lateral views of the right foot are also presented. FINDINGS: No new fractures or subluxations are noted. Stable appearance of the base of the second metatarsal. Calcaneal enthesophyte noted. The mortise and other joint spaces are well preserved. There is no ankle joint effusion. The mineralization of the bones is normal. There is bimalleolar mild soft tissue swelling. IMPRESSION: Overall findings unchanged. Groundskeeping Maintenance: ADAM Transcribe Date/Time: May 04 2023 1:00P Dictated by : ISABELLA NAGEL MD This examination was interpreted and the report reviewed and electronically signed by: ISABELLA NAGEL MD on May 04 2023 1:04PM EST [id number] N Normal [facility] XR Foot - right AP and Later al and obliqueon 05-04-2023 * * *Final Report* * * DATE OF EXAM: May 04 2023 12:58PM WOX [id number] - XR FOOT 3V AP/LAT/OBL RT / PROCEDURE REASON: multiple diagnoses * * * * Physician Interpretation * * * * EXAM TITLE: XR ANKLE 3V AP/LAT/OBL RT, XR FOOT 3V AP/LAT/OBL RT EXAM DATE/TIME: 05/04/2023 12:58 PM COMPARISON: X-ray ankle and foot on 04/15/2023 CLINICAL INDICATION/HISTORY: Pain. TECHNIQUE: AP, mortise and lateral views of the right ankle are presented. AP, oblique and lateral views of the right foot are also presented. FINDINGS: No new fractures or subluxations are noted. Stable appearance of the base of the second metatarsal. Calcaneal enthesophyte noted. The mortise and other joint spaces are well preserved. There is no ankle joint effusion. The mineralization of the bones is normal. There is bimalleolar mild soft tissue swelling. DIVISION OF RADIOLOGY Provider, [facility] - 05/04/2023 * * *Final Report* * * DATE OF EXAM: May 04 2023 12:58PM WOX [id number] - XR FOOT 3V AP/LAT/OBL RT / PROCEDURE REASON: multiple diagnoses * * * * Physician Interpretation * * * * EXAM TITLE: XR ANKLE 3V AP/LAT/OBL RT, XR FOOT 3V AP/LAT/OBL RT EXAM DATE/TIME: 05/04/2023 12:58 PM COMPARISON: X-ray ankle and foot on 04/15/2023 CLINICAL INDICATION/HISTORY: Pain. TECHNIQUE: AP, mortise and lateral views of the right ankle are presented. AP, oblique and lateral views of the right foot are also presented. FINDINGS: No new fractures or subluxations are noted. Stable appearance of the base of the second metatarsal. Calcaneal enthesophyte noted. The mortise and other joint spaces are well preserved. There is no ankle joint effusion. The mineralization of the bones is normal. There is bimalleolar mild soft tissue swelling. IMPRESSION IMPRESSION: Overall findings unchanged. Groundskeeping Maintenance: ADAM Transcribe Date/Time: May 04 2023 1:00P Dictated by : ISABELLA NAGEL MD This examination was interpreted and the report reviewed and electronically signed by: ISABELLA NAGEL MD on May 04 2023 1:04PM [facility] [place] [facility] .Auto Diffon 04-29-2023 Basophil, Absolute 0.1 10 3/mcL Normal 0.0-0.2 [facility] ([place]) Comment on above: Performed By: #### A DIFF, TROPHS, ANEU, BMP, CBC, GFR, MDW ####[address] [place], [place] [address] Basophils/100 WBC (Bld) 0.6 % Normal 0.0-2.5 [facility] ([place]) Comment on above: Performed By: #### A DIFF, TROPHS, ANEU, BMP, CBC, GFR, MDW ####[address] [place], [place] [address] Eosinophil, Absolute 0.4 10 3/mcL Normal 0.0-0.4 [facility] ([place]) Comment on above: Performed By: #### A DIFF, TROPHS, ANEU, BMP, CBC, GFR, MDW ####[address] [place], [place] [address] Eosinophils/100 WBC (Bld) 3.8 % Normal 0.0-7.0 [facility] ([place]) Comment on above: Performed By: #### A DIFF, TROPHS, ANEU, BMP, CBC, GFR, MDW ####[address] [place], [place] [address] Lymphocyte, Absolute 1.5 10 3/mcL Normal 0.8-3.9 [facility] ([place]) Comment on above: Performed By: #### A DIFF, TROPHS, ANEU, BMP, CBC, GFR, MDW ####[address] [place], [place] [address] Lymphocytes/100 WBC (Bld) 12.9 % Normal 10.0-50.0 [facility] ([place]) Comment on above: Performed By: #### A DIFF, TROPHS, ANEU, BMP, CBC, GFR, MDW ####[address] [place], [place] [address] Monocyte, Absolute 0.7 10 3/mcL Normal 0.2-1.0 [facility] ([place]) Comment on above: Performed By: #### A DIFF, TROPHS, ANEU, BMP, CBC, GFR, MDW ####[address] [place], [place] [address] Monocytes/100 WBC (Bld) 5.8 % Normal 1.7-13.0 [facility] ([place]) Comment on above: Performed By: #### A DIFF, TROPHS, ANEU, BMP, CBC, GFR, MDW ####[address] [place], [place] [address] Neutrophils/100 WBC (Bld) 76.9 % Normal 37.0-80.0 [facility] ([place]) Comment on above: Performed By: #### A DIFF, TROPHS, ANEU, BMP, CBC, GFR, MDW ####[address] [place], [place] [address] .GFRon 04-29-2023 GFR Non- 48 ml/min/1.73sqm Normal [facility] ([place]) Comment on above: Result Comment: GFR Population mean for , Non- Americans Ages 20-29 = 116 mL/min/1.73 sq.m. Ages 30-39 = 107 mL/min/1.73 sq.m. Ages 40-49 = 99 mL/min/1.73 sq.m. Ages 50-59 = 93 mL/min/1.73 sq.m. Ages 60-69 = 85 mL/min/1.73 sq.m. Ages 70+ = 75 mL/min/1.73 sq.m.Chronic Kidney Disease: Less than 60 mL/min/1.73 square metersEnd Stage Renal Disease: Less than 15 mL/min/1.73 square meters Performed By: #### A DIFF, TROPHS, ANEU, BMP, CBC, GFR, MDW ####[address] [place], [place] [address] GFR 58 ml/min/1.73sqm Normal [facility] ([place]) Comment on above: Result Comment: GFR Population mean for , Non- Americans Ages 20-29 = 116 mL/min/1.73 sq.m. Ages 30-39 = 107 mL/min/1.73 sq.m. Ages 40-49 = 99 mL/min/1.73 sq.m. Ages 50-59 = 93 mL/min/1.73 sq.m. Ages 60-69 = 85 mL/min/1.73 sq.m. Ages 70+ = 75 mL/min/1.73 sq.m.Chronic Kidney Disease: Less than 60 mL/min/1.73 square metersEnd Stage Renal Disease: Less than 15 mL/min/1.73 square meters Performed By: #### A DIFF, TROPHS, ANEU, BMP, CBC, GFR, MDW ####[address] [place], [place] [address] .MDWon 04-29-2023 Monocyte Distribution Width 18.07 Normal 0.00-20.00 [facility] ([place]) Comment on above: Result Comment: For ED adult patients suspected of sepsis, MDW<=20.0 does not rule out sepsis or risk of sepsis Performed By: #### A DIFF, TROPHS, ANEU, BMP, CBC, GFR, MDW ####[address] [place], [place] [address] .NEUABSon 04-29-2023 Neutrophil, Absolute 9.0 10 3/mcL High 2.9-6.2 [facility] ([place]) Comment on above: Performed By: #### A DIFF, TROPHS, ANEU, BMP, CBC, GFR, MDW ####[address] [place], [place] [address] BMPon 04-29-2023 BUN/Creatinine Ratio 7 ratio Normal 7-27 [facility] ([place]) Comment on above: Performed By: #### A DIFF, TROPHS, ANEU, BMP, CBC, GFR, MDW ####[address] [place], [place] [address] Calcium [Mass/Vol] 8.8 mg/dL Normal 8.4-10.2 Replaced by [facility] ([place]) Comment on above: Performed By: #### A DIFF, TROPHS, ANEU, BMP, CBC, GFR, MDW ####[address] [place], [place] [address] Chloride [Moles/Vol] 104 mmol/L Normal 98-107 [facility] ([place]) Comment on above: Performed By: #### A DIFF, TROPHS, ANEU, BMP, CBC, GFR, MDW ####[address] [place], [place] [address] CO2 [Moles/Vol] 24 mmol/L Normal 22-29 [facility] ([place]) Comment on above: Performed By: #### A DIFF, TROPHS, ANEU, BMP, CBC, GFR, MDW ####[address] [place], [place] [address] Creatinine [Mass/Vol] 1.18 mg/dL High 0.55-1.02 [facility] ([place]) Comment on above: Performed By: #### A DIFF, TROPHS, ANEU, BMP, CBC, GFR, MDW ####[address] [place], [place] [address] Electrolyte Balance 11.0 mEq/L Normal 4.0-15.0 [facility] ([place]) Comment on above: Performed By: #### A DIFF, TROPHS, ANEU, BMP, CBC, GFR, MDW ####[address] [place], [place] [address] Glucose [Mass/Vol] 134 mg/dL High 70-105 Replaced by [facility] ([place]) Comment on above: Performed By: #### A DIFF, TROPHS, ANEU, BMP, CBC, GFR, MDW ####[address] [place], [place] [address] Potassium [Moles/Vol] 4.2 mmol/L Normal 3.5-5.1 [facility] ([place]) Comment on above: Performed By: #### A DIFF, TROPHS, ANEU, BMP, CBC, GFR, MDW ####[address] [place], [place] [address] Sodium [Moles/Vol] 139 mmol/L Normal 136-145 Replaced by [facility] ([place]) Comment on above: Performed By: #### A DIFF, TROPHS, ANEU, BMP, CBC, GFR, MDW ####[address] [place], [place] [address] Urea nitrogen [Mass/Vol] 8 mg/dL Normal 7-18 [facility] ([place]) Comment on above: Performed By: #### A DIFF, TROPHS, ANEU, BMP, CBC, GFR, W ####[address] [place], [place] [address] CBCon 04-29-2023 Erythrocyte distribution width (RBC) [Ratio] 17.1 % High 11.5-14.5 [facility] ([place]) Comment on above: Performed By: #### A DIFF, TROPHS, ANEU, BMP, CBC, GFR, W ####[address] [place], [place] [address] Hematocrit (Bld) [Volume fraction] 31.2 % Low 37.0-47.0 [facility] ([place]) Comment on above: Performed By: #### A DIFF, TROPHS, ANEU, BMP, CBC, GFR, JUAN CARLOS ####[address] [place], [place] [address] Hgb 10.5 G/dL Low 12.0-16.0 [facility] ([place]) Comment on above: Performed By: #### A DIFF, TROPHS, ANEU, BMP, CBC, GFR, JUAN CARLOS ####[address] [place], [place] [address] MCH (RBC) [Entitic mass] 30.3 pg Normal 27.0-31.2 [facility] ([place]) Comment on above: Performed By: #### A DIFF, TROPHS, ANEU, BMP, CBC, GFR, JUAN CARLOS ####[address] [place], [place] [address] MCHC 33.5 G/dL Normal 33.0-37.0 [facility] ([place]) Comment on above: Performed By: #### A DIFF, TROPHS, ANEU, BMP, CBC, GFR, MDW ####[address] [place], [place] [address] MCV (RBC) [Entitic vol] 90.6 fL Normal 80.0-94.0 [facility] ([place]) Comment on above: Performed By: #### A DIFF, TROPHS, ANEU, BMP, CBC, GFR, W ####[address] [place], [place] [address] Platelet 400 10 3/mcL Normal 130-400 [facility] ([place]) Comment on above: Performed By: #### A DIFF, TROPHS, ANEU, BMP, CBC, GFR, MDW ####[address] [place], [place] [address] Platelet mean volume (Bld) [Entitic vol] 7.4 fL Normal 7.4-10.4 [facility] ([place]) Comment on above: Performed By: #### A DIFF, TROPHS, ANEU, BMP, CBC, GFR, W ####[address] [place], [place] [address] RBC 3.45 10 6/mcL Low 4.20-5.40 [facility] ([place]) Comment on above: Performed By: #### A DIFF, TROPHS, ANEU, BMP, CBC, GFR, W ####[address] [place], [place] [address] WBC 11.7 10 3/mcL High 4.6-10.8 [facility] ([place]) Comment on above: Performed By: #### A DIFF, TROPHS, ANEU, BMP, CBC, GFR, MDW ####[address] [place], [place] [address] LABORATORYOrdered By: SYSTEM SYSTEM on 04-29-2023 Basophil, Absolute 0.1 103/mcL Normal 0.0 - 0.2 10^3/mcL AO Workflow SS Basophils/100 WBC (Bld) 0.6 % Normal 0.0 - 2.5 % AO Workflow SS Calcium [Mass/Vol] 8.8 mg/dL Normal 8.4 - 10. 2 mg/dL AO ADM SS Chloride [Moles/Vol] 104 mmol/L Normal 98 - 10 7 mmol/L AO ADM SS CO2 [Moles/Vol] 24 mmol/L Normal 22 - 29 mmol/L AO ADM SS Creatinine [Mass/Vol] 1.18 mg/dL High 0.55 - 1.02 mg/dL AO ADM SS Electrolyte Balance 11.0 mEq/L Normal 4.0 - 15 .0 mEq/L AO ADM SS Eosinophil, Absolute 0.4 103/mcL Normal 0.0 - 0 .4 10^3/mcL AO Workflow SS Eosinophils/100 WBC (Bld) 3.8 % Normal 0.0 - 7.0 % AO Workflow SS Erythrocyte distribution width (RBC) [Ratio] 17.1 % High 11.5 - 14.5 % AO Workflow SS GFR/1.73 sq M.predicted among blacks MDRD (S/P/Bld) [Vol rate/Area] 58 ml/min/1.73sqm Invalid Interpretation Code AO Chemistry S Comment on above: Interpretive Data: GFR Population mean for , Non- Americans Ages 20-29 = 116 mL/min/1.73 sq.m. Ages 30-39 = 107 mL/min/1.73 sq.m. Ages 40-49 = 99 mL/min/1.73 sq.m. Ages 50-59 = 93 mL/min/1.73 sq.m. Ages 60-69 = 85 mL/min/1.73 sq.m. Ages 70+ = 75 mL/min/1.73 sq.m. Chronic Kidney Disease: Less than 60 mL/min/1.73 square meters End Stage Renal Disease: Less than 15 mL/min/1.73 square meters GFR/1.73 sq M.predicted among non-blacks MDRD (S/P/Bld) [Vol rate/Area] 48 ml/min/1.73sqm Invalid Interpretation Code AO Chemistry S Comment on above: Interpretive Data: GFR Population mean for , Non- Americans Ages 20-29 = 116 mL/min/1.73 sq.m. Ages 30-39 = 107 mL/min/1.73 sq.m. Ages 40-49 = 99 mL/min/1.73 sq.m. Ages 50-59 = 93 mL/min/1.73 sq.m. Ages 60-69 = 85 mL/min/1.73 sq.m. Ages 70+ = 75 mL/min/1.73 sq.m. Chronic Kidney Disease: Less than 60 mL/min/1.73 square meters End Stage Renal Disease: Less than 15 mL/min/1.73 square meters Glucose [Mass/Vol] 134 mg/dL High 70 - 105 mg/dL AO ADM SS Hematocrit (Bld) [Volume fraction] 31.2 % Low 37.0 - 47.0 % AO Workflow SS Hemoglobin (Bld) [Mass/Vol] 10.5 G/dL Low 12.0 - 16.0 G/dL AO Workflow SS Lymphocyte, Absolute 1.5 103/mcL Normal 0.8 - 3 .9 10^3/mcL AO Workflow SS Lymphocytes/100 WBC (Bld) 12.9 % Normal 10.0 - 50.0 % AO Workflow SS MCH (RBC) [Entitic mass] 30.3 pg Normal 27.0 - 31.2 pg AO Workflow SS MCHC 33.5 G/dL Normal 33.0 - 37.0 G/dL AO Workflow SS MCV (RBC) [Entitic vol] 90.6 fL Normal 80.0 - 94.0 fL AO Workflow SS Monocyte distribution width Auto (Bld) [Entitic vol] 18.07 1 Normal 0.00 - 20.00 AO Workflow SS Comment on above: Result Comment: For ED adult patients suspected of sepsis, MDW<=20.0 does not rule out sepsis or risk of sepsis Monocyte, Absolute 0.7 103/mcL Normal 0.2 - 1.0 10^3/mcL AO Workflow SS Monocytes/100 WBC (Bld) 5.8 % Normal 1.7 - 13.0 % AO Workflow SS Neutrophil, Absolute 9.0 103/mcL High 2.9 - 6 .2 10^3/mcL AO Workflow SS Neutrophils/100 WBC (Bld) 76.9 % Normal 37.0 - 80.0 % AO Workflow SS Platelet mean volume (Bld) [Entitic vol] 7.4 fL Normal 7.4 - 10.4 fL AO Workflow SS Platelets (Bld) [#/Vol] 400 103/mcL Normal 130 - 400 10^3/mcL AO Workflow SS Potassium [Moles/Vol] 4.2 mmol/L Normal 3.5 - 5.1 mmol/L AO ADM SS RBC (Bld) [#/Vol] 3.45 106/mcL Low 4.20 - 5.4 0 10^6/mcL AO Workflow SS Sodium [Moles/Vol] 139 mmol/L Normal 136 - 145 mmol/L AO ADM SS Troponin I.cardiac DL <= 0.01 ng/mL [Mass/Vol] 6.4 ng/L Normal 0.0 - 51.4 ng/L AO ADM SS Urea nitrogen [Mass/Vol] 8 mg/dL Normal 7 - 18 mg/dL AO ADM SS Urea nitrogen/Creatinine [Mass ratio] 7 ratio Normal 7 - 27 ratio AO ADM SS WBC (Bld) [#/Vol] 11.7 103/mcL High 4.6 - 10.8 10^3/mcL AO Workflow SS TROPHSon 04-29-2023 Troponin I High Sensitivity 6.4 ng/L Normal 0.0-51.4 [facility] ([place]) Comment on above: Performed By: #### A DIFF, TROPHS, ANEU, BMP, CBC, GFR, MDW ####[address] [place], [place] [address] XR CHEST 1 VIEWon 04-29-2023 XR CHEST 1 VIEW Normal [facility] ([place]) Saeed 04-25-2023 CNPN Telephone (UCTR) KAMALA GRAY ([id number]) 1970 F Date Time Provider Department 04/25/23 ARAM JOHNSON RUST During your visit today, we recorded the following information about you: Luba Zhou 04/25/2023 12:37 PM Signed Pt came in and would like a disk with her xray from 04/15/2023 ([facility]) put on it. If she can get by Tuesday. Marta Damon, BRYANT 04/25/2023 1:59 PM Signed CD READY FOR [facility] [place] [facility] Pt is aware Allergies As of Date: 04/25/2023 Noted Allergy Reaction HYDROCHLOROTHIAZIDE 09/28/2019 16 - Unknown NAPROXEN 11/05/2018 11 - Vomiting ASA (SALICYLATES) 12/21/2007 Date Reviewed: 04/15/2023 Reviewed by: Isabel Anna LPN - Fully Assessed Reason for Visit: Results [95] Prescriptions as of 04/26/2023 - apixaban (ELIQUIS) 5 mg tab(s) Take 5 mg by mouth once daily. - ondansetron orally disintegrating (ZOFRAN ODT) 4 mg disintegrating tablet Take 1 tablet by mouth every 6 hours as needed for nausea/vomiting. - progesterone micronized (PROMETRIUM) 200 mg capsule - magnesium oxide 200 mg magnesium tab Take 1 tablet by mouth daily at bedtime. - atogepant (QULIPTA) 30 mg tablet Take by mouth. - budesonide-formoterol (SYMBICORT) 160-4.5 mcg/actuation inhaler Inhale 2 Puffs as instructed. - fremanezumab-vfrm (AJOVY AUTOINJECTOR) 225 mg/1.5 mL auto-injector Inject 225 mg subcutaneously once every month. Do not shake. - benzonatate (TESSALON PERLES) 100 mg capsule Take 2 capsules by mouth three times daily as needed. - nystatin (MYCOSTATIN) powder Apply 1 application to affected area three times daily. - guaiFENesin (MUCINEX FAST-MAX CHEST-CONGEST) 100 mg/5 mL syrup Take 20 mL by mouth every 4 hours as needed. - megestrol (MEGACE) 40 mg tablet Take 40 mg by mouth once daily. - TRELEGY ELLIPTA 100-62.5-25 mcg INHALE 1 PUFF DAILY with good oral care - levothyroxine (SYNTHROID) 300 mcg tablet Take by mouth. Not taking - acetaminophen(TYLENOL 325 MG TAB) Problem List As Of Date 04/25/2023 Noted Resolved HYPOTHYROIDISM NOS [E03.9] 12/21/2007 Encounter Status:Closed by LUBA ZHOU on 04/26/23 Normal [facility] .Auto Diffon 04-21-2023 Basophil, Absolute 0.0 10 3/mcL Normal 0.0-0.2 [facility] ([place]) Comment on above: Performed By: #### A JAGDEEP, ADIFF, CBC, DIMER, PBNP, MDW, BMP, TROPHS, GFR ####[address] [place], [place] [address] Basophils/100 WBC (Bld) 0.4 % Normal 0.0-2.5 [facility] ([place]) Comment on above: Performed By: #### A JAGDEEP, ADIFF, CBC, DIMER, PBNP, MDW, BMP, TROPHS, GFR ####[address] [place], [place] [address] Eosinophil, Absolute 0.2 10 3/mcL Normal 0.0-0.4 [facility] ([place]) Comment on above: Performed By: #### A JAGDEEP, ADIFF, CBC, DIMER, PBNP, MDW, BMP, TROPHS, GFR ####[address] [place], [place] [address] Eosinophils/100 WBC (Bld) 1.7 % Normal 0.0-7.0 [facility] ([place]) Comment on above: Performed By: #### A JAGDEEP, ADIFF, CBC, DIMER, PBNP, MDW, BMP, TROPHS, GFR ####[address] [place], [place] [address] Lymphocyte, Absolute 1.5 10 3/mcL Normal 0.8-3.9 [facility] [place] Comment on above: Performed By: #### A JAGDEEP, ADIFF, CBC, DIMER, PBNP, MDW, BMP, TROPHS, GFR ####[address] [place], [place] [address] Lymphocytes/100 WBC (Bld) 12.2 % Normal 10.0-50.0 [facility] ([place]) Comment on above: Performed By: #### A JAGDEEP, ADIFF, CBC, DIMER, PBNP, MDW, BMP, TROPHS, GFR ####[address] [place], [place] [address] Monocyte, Absolute 0.6 10 3/mcL Normal 0.2-1.0 [facility] ([place]) Comment on above: Performed By: #### A JAGDEEP, ADIFF, CBC, DIMER, PBNP, MDW, BMP, TROPHS, GFR ####[address] [place], [place] [address] Monocytes/100 WBC (Bld) 4.8 % Normal 1.7-13.0 [facility] ([place]) Comment on above: Performed By: #### A JAGDEEP, ADIFF, CBC, DIMER, PBNP, MDW, BMP, TROPHS, GFR ####[address] [place], [place] [address] Neutrophils/100 WBC (Bld) 80.9 % High 37.0-80.0 [facility] ([place]) Comment on above: Performed By: #### A JAGDEEP, ADIFF, CBC, DIMER, PBNP, MDW, BMP, TROPHS, GFR ####[address] [place], [place] [address] .GFRon 04-21-2023 GFR 73 ml/min/1.73sqm Normal [facility] ([place]) Comment on above: Result Comment: GFR Population mean for , Non- Americans Ages 20-29 = 116 mL/min/1.73 sq.m. Ages 30-39 = 107 mL/min/1.73 sq.m. Ages 40-49 = 99 mL/min/1.73 sq.m. Ages 50-59 = 93 mL/min/1.73 sq.m. Ages 60-69 = 85 mL/min/1.73 sq.m. Ages 70+ = 75 mL/min/1.73 sq.m.Chronic Kidney Disease: Less than 60 mL/min/1.73 square metersEnd Stage Renal Disease: Less than 15 mL/min/1.73 square meters Performed By: #### A JAGDEEP, ADIFF, CBC, DIMER, PBNP, MDW, BMP, TROPHS, GFR ####[address] [place], [place] [address] GFR Non- 60 ml/min/1.73sqm Normal [facility] ([place]) Comment on above: Result Comment: GFR Population mean for , Non- Americans Ages 20-29 = 116 mL/min/1.73 sq.m. Ages 30-39 = 107 mL/min/1.73 sq.m. Ages 40-49 = 99 mL/min/1.73 sq.m. Ages 50-59 = 93 mL/min/1.73 sq.m. Ages 60-69 = 85 mL/min/1.73 sq.m. Ages 70+ = 75 mL/min/1.73 sq.m.Chronic Kidney Disease: Less than 60 mL/min/1.73 square metersEnd Stage Renal Disease: Less than 15 mL/min/1.73 square meters Performed By: #### A JAGDEEP, ADIFF, CBC, DIMER, PBNP, MDW, BMP, TROPHS, GFR ####[id number] [place], [place] [address] .MDWon 04-21-2023 Monocyte Distribution Width 16.75 Normal 0.00-20.00 [facility] ([place]) Comment on above: Result Comment: For ED adult patients suspected of sepsis, MDW<=20.0 does not rule out sepsis or risk of sepsis Performed By: #### A JAGDEEP, ADIFF, CBC, DIMER, PBNP, MDW, BMP, TROPHS, GFR ####[address] [place], [place] [address] .NEUABSon 04-21-2023 Neutrophil, Absolute 10.2 10 3/mcL High 2.9-6.2 A [facility] ([place]) Comment on above: Performed By: #### A JAGDEEP, ADIFF, CBC, DIMER, PBNP, MDW, BMP, TROPHS, GFR ####Johny [address] [place], [place] [address] BMPon 04-21-2023 BUN/Creatinine Ratio 10 ratio Normal 7-27 [facility] ([place]) Comment on above: Performed By: #### A JAGDEEP, ADIFF, CBC, DIMER, PBNP, MDW, BMP, TROPHS, GFR ####Johny [address] [place], [place] [address] Calcium [Mass/Vol] 9.4 mg/dL Normal 8.4-10.2 Replaced by [facility] ([place]) Comment on above: Performed By: #### A JAGDEEP, ADIFF, CBC, DIMER, PBNP, MDW, BMP, TROPHS, GFR ####[place]lando [address] [place], [place] [address] Chloride [Moles/Vol] 100 mmol/L Normal 98-107 [facility] ([place]) Comment on above: Performed By: #### A JAGDEEP, ADIFF, CBC, DIMER, PBNP, MDW, BMP, TROPHS, GFR ####Johny [address] [place], [place] [address] CO2 [Moles/Vol] 25 mmol/L Normal 22-29 [facility] ([place]) Comment on above: Performed By: #### A JAGDEEP, ADIFF, CBC, DIMER, PBNP, MDW, BMP, TROPHS, GFR ####Johny [address] [place], [place] [address] Creatinine [Mass/Vol] 0.97 mg/dL Normal 0.55-1.02 [facility] ([place]) Comment on above: Performed By: #### A JAGDEEP, ADIFF, CBC, DIMER, PBNP, MDW, BMP, TROPHS, GFR ####Johny [address] [place] [id number] Electrolyte Balance 11.0 mEq/L Normal 4.0-15.0 Formerly [facility] ([place]) Comment on above: Performed By: #### A JAGDEEP, ADIFF, CBC, DIMER, PBNP, MDW, BMP, TROPHS, GFR ####Johny [address] [place], [place] [address] Glucose [Mass/Vol] 128 mg/dL High 70-105 Replaced by [facility] ([place] Comment on above: Performed By: #### A JAGDEEP, ADIFF, CBC, DIMER, PBNP, MDW, BMP, TROPHS, GFR ####Johny [address] [place], [place] [address] Potassium [Moles/Vol] 4.5 mmol/L Normal 3.5-5.1 [facility] ([place]) Comment on above: Performed By: #### A JAGDEEP, ADIFF, CBC, DIMER, PBNP, MDW, BMP, TROPHS, GFR ####Johny [address] [place], [place] [address] Sodium [Moles/Vol] 136 mmol/L Normal 136-145 Replaced by [facility] [place] Comment on above: Performed By: #### A JAGDEEP, ADIFF, CBC, DIMER, PBNP, MDW, BMP, TROPHS, GFR ####Johny [address] [place] [phone] Urea nitrogen [Mass/Vol] 10 mg/dL Normal 7-18 [facility] ([place]) Comment on above: Performed By: #### A JAGDEEP, ADIFF, CBC, DIMER, PBNP, MDW, BMP, TROPHS, GFR ####Johny [address] [place], [place] [address] CBCon 04-21-2023 Erythrocyte distribution width (RBC) [Ratio] 16.8 % High 11.5-14.5 [facility] ([place]) Comment on above: Performed By: #### A JAGDEEP, ADIFF, CBC, DIMER, PBNP, MDW, BMP, TROPHS, GFR ####Johny [address] [place] [phone] Hematocrit (Bld) [Volume fraction] 34.0 % Low 37.0-47.0 [facility] ([place]) Comment on above: Performed By: #### A JAGDEEP, ADIFF, CBC, DIMER, PBNP, MDW, BMP, TROPHS, GFR ####Johny [address] [place], [place] [address] Hgb 11.3 G/dL Low 12.0-16.0 [facility] ([place]) Comment on above: Performed By: #### A JAGDEEP, ADIFF, CBC, DIMER, PBNP, MDW, BMP, TROPHS, GFR ####Johny [address] [place], [place] [address] MCH (RBC) [Entitic mass] 30.3 pg Normal 27.0-31.2 [facility] ([place]) Comment on above: Performed By: #### A JAGDEEP, ADIFF, CBC, DIMER, PBNP, MDW, BMP, TROPHS, GFR ####Johny [address] [place], [place] [address] MCHC 33.3 G/dL Normal 33.0-37.0 [facility] ([place]) Comment on above: Performed By: #### A JAGDEEP, ADIFF, CBC, DIMER, PBNP, MDW, BMP, TROPHS, GFR ####Johny [address] [place] [phone] MCV (RBC) [Entitic vol] 90.9 fL Normal 80.0-94.0 [facility] ([place]) Comment on above: Performed By: #### A JAGDEEP, ADIFF, CBC, DIMER, PBNP, MDW, BMP, TROPHS, GFR ####Johny [address] [place], [place] [address] Platelet 481 10 3/mcL High 130-400 [facility] ([place]) Comment on above: Performed By: #### A JAGDEEP, ADIFF, CBC, DIMER, PBNP, MDW, BMP, TROPHS, GFR ####Johny [address] [place], [place] [address] Platelet mean volume (Bld) [Entitic vol] 7.0 fL Low 7.4-10.4 [facility] ([place]) Comment on above: Performed By: #### A JAGDEEP, ADIFF, CBC, DIMER, PBNP, MDW, BMP, TROPHS, GFR ####Johny [address] [place], [place] [address] RBC 3.74 10 6/mcL Low 4.20-5.40 [facility] ([place]) Comment on above: Performed By: #### A JAGDEEP, ADIFF, CBC, DIMER, PBNP, MDW, BMP, TROPHS, GFR ####Johny [address] [place], [place] [address] WBC 12.6 10 3/mcL High 4.6-10.8 [facility] ([place]) Comment on above: Performed By: #### A JAGDEEP, ADIFF, CBC, DIMER, PBNP, MDW, BMP, TROPHS, GFR ####Johny [address] [place], [place] [address] CT ANGIOGRAPHY CHEST W/CONTR Radha 04-21-2023 CT ANGIOGRAPHY CHEST W/CONTRAST Normal [facility] ([place]) DIMERon 04-21-2023 D-Dimer 367 ng/mL D-DU High 0-230 [facility] ([place]) Comment on above: Result Comment: Resu lts reported in D-DU ng/mL.Positive for D-dimer. A positive D-Dimer may occur in the following:DVT, PE, DIC, Trauma, Cancer, Sepsis, , Rheumatoid arthritis, Myocardial infarction and Cirrhosis. The presence of Rheumatoid Factor and HAMA (human mouse antibody) produces an overestimation of test results.The result of the D-Dimer test should be evaluated in the context of all the clinical and laboratory data available.In those instances where the laboratory result does not agree with the clinical evaluation, additional tests shouldbe performed accordingly.If the D-Dimer result is used to exclude DVT or PE, the recommended cutoff value is less than 230 ng/mL. The D-Dimerresult should not be used alone to rule in DVT/PE, but should be used in conjunction with a clinical pretest probability (PTP)assessment model to exclude venous thromboembolism (VTE) in outpatients suspected of deep venous thrombosis (DVT) and pulmonary embolism (PE). Performed By: #### A JAGDEEP, ADIFF, CBC, DIMER, PBNP, MDW, BMP, TROPHS, GFR ####Johny [address] [place] [address] LABORATORYOrdered By: SYSTEM SYSTEM on 04-21-2023 Basophil, Absolute 0.0 103/mcL Normal 0.0 - 0.2 10^3/mcL AO Workflow SS Basophils/100 WBC (Bld) 0.4 % Normal 0.0 - 2.5 % AO Workflow SS Calcium [Mass/Vol] 9.4 mg/dL Normal 8.4 - 10. 2 mg/dL AO ADM SS Chloride [Moles/Vol] 100 mmol/L Normal 98 - 10 7 mmol/L AO ADM SS CO2 [Moles/Vol] 25 mmol/L Normal 22 - 29 mmol/L AO ADM SS Creatinine [Mass/Vol] 0.97 mg/dL Normal 0.55 - 1.02 mg/dL AO ADM SS Electrolyte Balance 11.0 mEq/L Normal 4.0 - 15 .0 mEq/L AO ADM SS Eosinophil, Absolute 0.2 103/mcL Normal 0.0 - 0 .4 10^3/mcL AO Workflow SS Eosinophils/100 WBC (Bld) 1.7 % Normal 0.0 - 7.0 % AO Workflow SS Erythrocyte distribution width (RBC) [Ratio] 16.8 % High 11.5 - 14.5 % AO Workflow SS GFR/1.73 sq M.predicted among blacks MDRD (S/P/Bld) [Vol rate/Area] 73 ml/min/1.73sqm Invalid Interpretation Code AO Chemistry S Comment on above: Interpretive Data: GFR Population mean for , Non- Americans Ages 20-29 = 116 mL/min/1.73 sq.m. Ages 30-39 = 107 mL/min/1.73 sq.m. Ages 40-49 = 99 mL/min/1.73 sq.m. Ages 50-59 = 93 mL/min/1.73 sq.m. Ages 60-69 = 85 mL/min/1.73 sq.m. Ages 70+ = 75 mL/min/1.73 sq.m. Chronic Kidney Disease: Less than 60 mL/min/1.73 square meters End Stage Renal Disease: Less than 15 mL/min/1.73 square meters GFR/1.73 sq M.predicted among non-blacks MDRD (S/P/Bld) [Vol rate/Area] 60 ml/min/1.73sqm Invalid Interpretation Code AO Chemistry S Comment on above: Interpretive Data: GFR Population mean for , Non- Americans Ages 20-29 = 116 mL/min/1.73 sq.m. Ages 30-39 = 107 mL/min/1.73 sq.m. Ages 40-49 = 99 mL/min/1.73 sq.m. Ages 50-59 = 93 mL/min/1.73 sq.m. Ages 60-69 = 85 mL/min/1.73 sq.m. Ages 70+ = 75 mL/min/1.73 sq.m. Chronic Kidney Disease: Less than 60 mL/min/1.73 square meters End Stage Renal Disease: Less than 15 mL/min/1.73 square meters Glucose [Mass/Vol] 128 mg/dL High 70 - 105 mg/dL AO ADM SS Hematocrit (Bld) [Volume fraction] 34.0 % Low 37.0 - 47.0 % AO Workflow SS Hemoglobin (Bld) [Mass/Vol] 11.3 G/dL Low 12.0 - 16.0 G/dL AO Workflow SS Lymphocyte, Absolute 1.5 103/mcL Normal 0.8 - 3 .9 10^3/mcL AO Workflow SS Lymphocytes/100 WBC (Bld) 12.2 % Normal 10.0 - 50.0 % AO Workflow SS MCH (RBC) [Entitic mass] 30.3 pg Normal 27.0 - 31.2 pg AO Workflow SS MCHC 33.3 G/dL Normal 33.0 - 37.0 G/dL AO Workflow SS MCV (RBC) [Entitic vol] 90.9 fL Normal 80.0 - 94.0 fL AO Workflow SS Monocyte distribution width Auto (Bld) [Entitic vol] 16.75 1 Normal 0.00 - 20.00 AO Workflow SS Comment on above: Result Comment: For ED adult patients suspected of sepsis, MDW<=20.0 does not rule out sepsis or risk of sepsis Monocyte, Absolute 0.6 103/mcL Normal 0.2 - 1.0 10^3/mcL AO Workflow SS Monocytes/100 WBC (Bld) 4.8 % Normal 1.7 - 13.0 % AO Workflow SS Natriuretic peptide.B prohormone N-Terminal [Mass/Vol] 118 pg/mL Normal 0 - 125 pg/mL AO ADM SS Comment on above: Interpretive Data: N T-proBNP results of less than 300 pg/mL effectively rules out acute congestive heart failure with 99% negative predictive value. Neutrophil, Absolute 10.2 103/mcL High 2.9 - 6 .2 10^3/mcL AO Workflow SS Neutrophils/100 WBC (Bld) 80.9 % High 37.0 - 80.0 % AO Workflow SS Platelet mean volume (Bld) [Entitic vol] 7.0 fL Low 7.4 - 10.4 fL AO Workflow SS Platelets (Bld) [#/Vol] 481 103/mcL High 130 - 400 10^3/mcL AO Workflow SS Potassium [Moles/Vol] 4.5 mmol/L Normal 3.5 - 5.1 mmol/L AO ADM SS RBC (Bld) [#/Vol] 3.74 106/mcL Low 4.20 - 5.4 0 10^6/mcL AO Workflow SS Sodium [Moles/Vol] 136 mmol/L Normal 136 - 145 mmol/L AO ADM SS Troponin I.cardiac DL <= 0.01 ng/mL [Mass/Vol] 6.4 ng/L Normal 0.0 - 51.4 ng/L AO ADM SS Urea nitrogen [Mass/Vol] 10 mg/dL Normal 7 - 18 mg/dL AO ADM SS Urea nitrogen/Creatinine [Mass ratio] 10 ratio Normal 7 - 27 ratio AO ADM SS WBC (Bld) [#/Vol] 12.6 103/mcL High 4.6 - 10.8 10^3/mcL AO Workflow SS LABORATORYOrdered By: Tristan Gardner on 04-21-2023 Fibrin D-dimer DDU (PPP) [Mass/Vol] 367 ng/mL D-DU High 0 - 230 ng/mL D-DU AO [facility] SS Comment on above: Result Comment: Resu lts reported in D-DU ng/mL. Positive for D-dimer. A positive D-Dimer may occur in the following: DVT, PE, DIC, Trauma, Cancer, Sepsis, , Rheumatoid arthritis, Myocardial infarction and Cirrhosis. The presence of Rheumatoid Factor and HAMA (human mouse antibody) produces an overestimation of test results. Interpretive Data: T he result of the D-Dimer test should be evaluated in the context of all the clinical and laboratory data available. In those instances where the laboratory result does not agree with the clinical evaluation, additional tests should be performed accordingly. If the D-Dimer result is used to exclude DVT or PE, the recommended cutoff value is less than 230 ng/mL. The D-Dimer result should not be used alone to rule in DVT/PE, but should be used in conjunction with a clinical pretest probability (PTP)assessment model to exclude venous thromboembolism (VTE) in outpatients suspected of deep venous thrombosis (DVT) and pulmonary embolism (PE). PBNPon 04-21-2023 Natriuretic peptide B (Bld) [Mass/Vol] 118 pg/mL Normal 0-125 [facility] ([place]) Comment on above: Result Comment: NT-p roBNP results of less than 300 pg/mL effectivelyrules out acute congestive heart failure with 99% negative predictive value. Performed By: #### A JAGDEEP, ADIFF, CBC, DIMER, PBNP, MDW, BMP, TROPHS, GFR ####Johny [address] [place], [place] [address] TROPHSon 04-21-2023 Troponin I High Sensitivity 6.4 ng/L Normal 0.0-51.4 [facility] ([place]) Comment on above: Performed By: #### A JAGDEEP, ADIFF, CBC, DIMER, PBNP, MDW, BMP, TROPHS, GFR ####Johny [address] [place], [place] [address] .Auto Diffon 04-20-2023 Basophil, Absolute 0.1 10 3/mcL Normal 0.0-0.2 [facility] ([place]) Comment on above: Performed By: #### T JUAN CARLOS FAGAN, DANIEL, ADIFF, GFR, CBC, PBNP, ANEU ####Johny [address] [place], [place] [address] Basophils/100 WBC (Bld) 0.6 % Normal 0.0-2.5 [facility] ([place]) Comment on above: Performed By: #### T JUAN CARLOS FAGAN, CMP, ADIFF, GFR, CBC, PBNP, ANEU ####Johny [address] [place], [place] [address] Eosinophil, Absolute 0.3 10 3/mcL Normal 0.0-0.4 [facility] ([place]) Comment on above: Performed By: #### JUAN CARLOS ROSSI, DANIEL, ADIFF, GFR, CBC, PBNP, ANEU ####Johny [address] [place], [place] [address] Eosinophils/100 WBC (Bld) 1.7 % Normal 0.0-7.0 [facility] ([place]) Comment on above: Performed By: #### JUAN CARLOS ROSSI, DANIEL, ADIFF, GFR, CBC, PBNP, ANEU ####Johny [address] [place], [place] [address] Lymphocyte, Absolute 1.7 10 3/mcL Normal 0.8-3.9 [facility] ([place]) Comment on above: Performed By: #### JUAN CARLOS ROSSI, CMP, ADIFF, GFR, CBC, PBNP, ANEU ####Johny [address] [place], [place] [address] Lymphocytes/100 WBC (Bld) 11.8 % Normal 10.0-50.0 [facility] ([place]) Comment on above: Performed By: #### JUAN CARLOS ROSIS, CMP, ADIFF, GFR, CBC, PBNP, ANEU ####Johny [address] [place], [place] [address] Monocyte, Absolute 0.6 10 3/mcL Normal 0.2-1.0 [facility] ([place]) Comment on above: Performed By: #### T JUAN CARLOS FAGAN, DANIEL, ADIFF, GFR, CBC, PBNP, ANEU ####Johny [address] [place], [place] [address] Monocytes/100 WBC (Bld) 4.2 % Normal 1.7-13.0 [facility] ([place]) Comment on above: Performed By: #### T JUAN CARLOS FAGAN, CMP, ADIFF, GFR, CBC, PBNP, ANEU ####Johny [address] [place], [place] [address] Neutrophils/100 WBC (Bld) 81.7 % High 37.0-80.0 [facility] ([place]) Comment on above: Performed By: #### T JUAN CARLOS FAGAN, DANIEL, ADIFF, GFR, CBC, PBNP, ANEU ####Johny [address] [place], [place] [address] .GFRon 04-20-2023 GFR 61 ml/min/1.73sqm Normal [facility] ([place]) Comment on above: Result Comment: GFR Population mean for , Non- Americans Ages 20-29 = 116 mL/min/1.73 sq.m. Ages 30-39 = 107 mL/min/1.73 sq.m. Ages 40-49 = 99 mL/min/1.73 sq.m. Ages 50-59 = 93 mL/min/1.73 sq.m. Ages 60-69 = 85 mL/min/1.73 sq.m. Ages 70+ = 75 mL/min/1.73 sq.m.Chronic Kidney Disease: Less than 60 mL/min/1.73 square metersEnd Stage Renal Disease: Less than 15 mL/min/1.73 square meters Performed By: #### T JUAN CARLOS FAGAN, CMP, ADIFF, GFR, CBC, PBNP, ANEU ####Johny [address] [place], [place] [address] GFR Non- 51 ml/min/1.73sqm Normal [facility] ([place]) Comment on above: Result Comment: GFR Population mean for , Non- Americans Ages 20-29 = 116 mL/min/1.73 sq.m. Ages 30-39 = 107 mL/min/1.73 sq.m. Ages 40-49 = 99 mL/min/1.73 sq.m. Ages 50-59 = 93 mL/min/1.73 sq.m. Ages 60-69 = 85 mL/min/1.73 sq.m. Ages 70+ = 75 mL/min/1.73 sq.m.Chronic Kidney Disease: Less than 60 mL/min/1.73 square metersEnd Stage Renal Disease: Less than 15 mL/min/1.73 square meters Performed By: #### T JUAN CARLOS FAGAN, CMP, ADIFF, GFR, CBC, PBNP, ANEU ####Johny [address] [place], [place] [address] .MDWon 04-20-2023 Monocyte Distribution Width 19.28 Normal 0.00-20.00 [facility] ([place]) Comment on above: Result Comment: For ED adult patients suspected of sepsis, MDW<=20.0 does not rule out sepsis or risk of sepsis Performed By: #### JUAN CARLOS ROSSI, CMP, ADIFF, GFR, CBC, PBNP, ANEU ####Johny [address] [place], [place] [address] .NEUABSon 04-20-2023 Neutrophil, Absolute 12.1 10 3/mcL High 2.9-6.2 A [facility] ([place]) Comment on above: Performed By: #### JUAN CARLOS ROSSI, DANIEL, ADIFF, GFR, CBC, PBNP, ANEU ####Johny [address] [place], [place] [address] CBCon 04-20-2023 Erythrocyte distribution width (RBC) [Ratio] 16.6 % High 11.5-14.5 [facility] ([place]) Comment on above: Performed By: #### JUAN CARLOS ROSSI, CMP, ADIFF, GFR, CBC, PBNP, ANEU ####Johny [address] [place], [place] [address] Hematocrit (Bld) [Volume fraction] 34.7 % Low 37.0-47.0 [facility] ([place]) Comment on above: Performed By: #### T JUAN CARLOS FAGAN, DANIEL, ADIFF, GFR, CBC, PBNP, ANEU ####Johny [address] [place], [place] [address] Hgb 11.4 G/dL Low 12.0-16.0 [facility] ([place]) Comment on above: Performed By: #### T JUAN CARLOS FAGAN, DANIEL, ADIFF, GFR, CBC, PBNP, ANEU ####Johny [address] [place], [place] [address] MCH (RBC) [Entitic mass] 30.0 pg Normal 27.0-31.2 [facility] ([place]) Comment on above: Performed By: #### T JUAN CARLOS FAGAN, DANIEL, ADIFF, GFR, CBC, PBNP, ANEU ####Johny [address] [place], [place] [address] MCHC 32.8 G/dL Low 33.0-37.0 [facility] ([place]) Comment on above: Performed By: #### T JUAN CARLOS FAGAN, DANIEL, ADIFF, GFR, CBC, PBNP, ANEU ####Johny [address] [place], [place] [address] MCV (RBC) [Entitic vol] 91.7 fL Normal 80.0-94.0 [facility] ([place]) Comment on above: Performed By: #### T JUAN CARLOS FAGAN, DANIEL, ADIFF, GFR, CBC, PBNP, ANEU ####Johny [address] [place], [place] [address] Platelet 488 10 3/mcL High 130-400 [facility] ([place]) Comment on above: Performed By: #### T JUAN CARLOS FAGAN, DANIEL, ADIFF, GFR, CBC, PBNP, ANEU ####Johny [address] [place], [place] [address] Platelet mean volume (Bld) [Entitic vol] 7.1 fL Low 7.4-10.4 [facility] ([place]) Comment on above: Performed By: #### T JUAN CARLOS FAGAN, DANIEL, ADIFF, GFR, CBC, PBNP, ANEU ####Johny [address] [place], [place] [address] RBC 3.79 10 6/mcL Low 4.20-5.40 [facility] ([place]) Comment on above: Performed By: #### T JUAN CARLOS FAGAN, CMP, ADIFF, GFR, CBC, PBNP, ANEU ####Johny [address] [place], [place] [address] WBC 14.8 10 3/mcL High 4.6-10.8 [facility] ([place]) Comment on above: Performed By: #### T JUAN CARLOS FAGAN, DANIEL, ADIFF, GFR, CBC, PBNP, ANEU ####Johny [address] [place], [place] [address] CMPon 04-20-2023 Albumin Level 3.2 G/dL Low 3.5-5.0 [facility] ([place]) Comment on above: Performed By: #### JUAN CARLOS ROSSI, DANIEL, ADIFF, GFR, CBC, PBNP, ANEU ####Johny [address] [place], [place] [address] Albumin/Globulin [Mass ratio] 0.8 {ratio} Low 1.1-2.5 [facility] ([place]) Comment on above: Performed By: #### JUAN CARLOS ROSSI, DANIEL, ADIFF, GFR, CBC, PBNP, ANEU ####Johny [address] [place], [place] [address] ALP [Catalytic activity/Vol] 137 U/L High 40-135 [facility] ([place]) Comment on above: Performed By: #### JUAN CARLOS ROSSI, DANIEL, ADIFF, GFR, CBC, PBNP, ANEU ####Johny [address] [place], [place] [address] ALT [Catalytic activity/Vol] 45 U/L Normal 14-59 [facility] ([place]) Comment on above: Performed By: #### JUAN CARLOS ROSSI, CMP, ADIFF, GFR, CBC, PBNP, ANEU ####Johny [address] [place], [place] [address] AST [Catalytic activity/Vol] 50 U/L High 10-40 [facility] ([place]) Comment on above: Performed By: #### T JUAN CARLOS FAGAN, CMP, ADIFF, GFR, CBC, PBNP, ANEU ####Johny [address] [place], [place] [address] Bili Total 0.3 mg/dL Normal 0.2-1.0 [facility] ([place]) Comment on above: Result Comment: Use of this assay is not recommended for patients undergoing treatment with eltrombopag due to the potential for falsely elevated results. Performed By: #### T JUAN CARLOS FAGAN, CMP, ADIFF, GFR, CBC, PBNP, ANEU ####Johny [address] [place], [place] [address] BUN/Creatinine Ratio 9 ratio Normal 7-27 [facility] ([place]) Comment on above: Performed By: #### JUAN CARLOS ROSSI, CMP, ADIFF, GFR, CBC, PBNP, ANEU ####Johny [address] [place], [place] [address] Calcium [Mass/Vol] 9.4 mg/dL Normal 8.4-10.2 Replaced by [facility] ([place]) Comment on above: Performed By: #### JUAN CARLOS ROSSI, DANIEL, ADIFF, GFR, CBC, PBNP, ANEU ####Johny [address] [place], [place] [address] Chloride [Moles/Vol] 99 mmol/L Normal 98-107 [facility] ([place]) Comment on above: Performed By: #### JUAN CARLOS ROSSI, DANIEL, ADIFF, GFR, CBC, PBNP, ANEU ####Johny [address] [place], [place] [address] CO2 [Moles/Vol] 28 mmol/L Normal 22-29 [facility] ([place]) Comment on above: Performed By: #### JUAN CARLOS ROSSI, DANIEL, ADIFF, GFR, CBC, PBNP, ANEU ####Johny [address] [place], [place] [address] Creatinine [Mass/Vol] 1.13 mg/dL High 0.55-1.02 [facility] ([place]) Comment on above: Performed By: #### T JUAN CARLOS FAGAN, DANIEL, ADIFF, GFR, CBC, PBNP, ANEU ####Johny [address] [place], [place] [address] Electrolyte Balance 9.0 mEq/L Normal 4.0-15.0 [facility] ([place]) Comment on above: Performed By: #### T JUAN CARLOS FAGAN, DANIEL, ADIFF, GFR, CBC, PBNP, ANEU ####Johny [address] [place], [place] [address] Globulin 4.0 G/dL Normal [facility] ([place]) Comment on above: Performed By: #### JUAN CARLOS ROSSI, DANIEL, ADIFF, GFR, CBC, PBNP, ANEU ####Johny [address] [place], [place] [address] Glucose [Mass/Vol] 128 mg/dL High 70-105 Replaced by [facility] ([place]) Comment on above: Performed By: #### JUAN CARLOS ROSSI, DANIEL, ADIFF, GFR, CBC, PBNP, ANEU ####Johny [address] [place], [place] [address] Potassium [Moles/Vol] 4.5 mmol/L Normal 3.5-5.1 [facility] ([place]) Comment on above: Performed By: #### JUAN CARLOS ROSSI, DANIEL, ADIFF, GFR, CBC, PBNP, ANEU ####Johny [address] [place], [place] [address] Sodium [Moles/Vol] 136 mmol/L Normal 136-145 Replaced by [facility] ([place]) Comment on above: Performed By: #### JUAN CARLOS ROSSI, DANIEL, ADIFF, GFR, CBC, PBNP, ANEU ####Johny [address] [place], [place] [address] Total Protein 7.2 G/dL Normal 6.4-8.2 [facility] ([place]) Comment on above: Performed By: #### JUAN CARLOS ROSSI, DANIEL, ADIFF, GFR, CBC, PBNP, ANEU ####Johny [address] [place], [place] [address] Urea nitrogen [Mass/Vol] 10 mg/dL Normal 7-18 [facility] ([place]) Comment on above: Performed By: #### T RYLAN, JUAN CARLOS, CMP, ADIFF, GFR, CBC, PBNP, ANEU ####Johny [address] [place], [place] [address] LABORATORYOrdered By: SYSTEM SYSTEM on 04-20-2023 Troponin I.cardiac DL <= 0.01 ng/mL [Mass/Vol] 5.6 ng/L Normal 0.0 - 51.4 ng/L AO ADM SS Albumin BCP dye [Mass/Vol] 3.2 G/dL Low 3.5 - 5.0 G/dL AO ADM SS Albumin/Globulin [Mass ratio] 0.8 {ratio} Low 1.1 - 2.5 ratio AO ADM SS ALP [Catalytic activity/Vol] 137 U/L High 40 - 135 U/L AO ADM SS ALT With P-5'-P [Catalytic activity/Vol] 45 U/L Normal 14 - 59 U/L AO ADM SS AST With P-5'-P [Catalytic activity/Vol] 50 U/L High 10 - 40 U/L AO ADM SS Basophil, Absolute 0.1 103/mcL Normal 0.0 - 0.2 10^3/mcL AO Workflow SS Basophils/100 WBC (Bld) 0.6 % Normal 0.0 - 2.5 % AO Workflow SS Bilirubin [Mass/Vol] 0.3 mg/dL Normal 0.2 - 1 .0 mg/dL AO ADM SS Comment on above: Interpretive Data: U se of this assay is not recommended for patients undergoing treatment with eltrombopag due to the potential for falsely elevated results. Calcium [Mass/Vol] 9.4 mg/dL Normal 8.4 - 10. 2 mg/dL AO ADM SS Chloride [Moles/Vol] 99 mmol/L Normal 98 - 10 7 mmol/L AO ADM SS CO2 [Moles/Vol] 28 mmol/L Normal 22 - 29 mmol/L AO ADM SS Creatinine [Mass/Vol] 1.13 mg/dL High 0.55 - 1.02 mg/dL AO ADM SS Electrolyte Balance 9.0 mEq/L Normal 4.0 - 15 .0 mEq/L AO ADM SS Eosinophil, Absolute 0.3 103/mcL Normal 0.0 - 0 .4 10^3/mcL AO Workflow SS Eosinophils/100 WBC (Bld) 1.7 % Normal 0.0 - 7.0 % AO Workflow SS Erythrocyte distribution width (RBC) [Ratio] 16.6 % High 11.5 - 14.5 % AO Workflow SS GFR/1.73 sq M.predicted among blacks MDRD (S/P/Bld) [Vol rate/Area] 61 ml/min/1.73sqm Invalid Interpretation Code AO Chemistry S Comment on above: Interpretive Data: GFR Population mean for , Non- Americans Ages 20-29 = 116 mL/min/1.73 sq.m. Ages 30-39 = 107 mL/min/1.73 sq.m. Ages 40-49 = 99 mL/min/1.73 sq.m. Ages 50-59 = 93 mL/min/1.73 sq.m. Ages 60-69 = 85 mL/min/1.73 sq.m. Ages 70+ = 75 mL/min/1.73 sq.m. Chronic Kidney Disease: Less than 60 mL/min/1.73 square meters End Stage Renal Disease: Less than 15 mL/min/1.73 square meters GFR/1.73 sq M.predicted among non-blacks MDRD (S/P/Bld) [Vol rate/Area] 51 ml/min/1.73sqm Invalid Interpretation Code AO Chemistry S Comment on above: Interpretive Data: GFR Population mean for , Non- Americans Ages 20-29 = 116 mL/min/1.73 sq.m. Ages 30-39 = 107 mL/min/1.73 sq.m. Ages 40-49 = 99 mL/min/1.73 sq.m. Ages 50-59 = 93 mL/min/1.73 sq.m. Ages 60-69 = 85 mL/min/1.73 sq.m. Ages 70+ = 75 mL/min/1.73 sq.m. Chronic Kidney Disease: Less than 60 mL/min/1.73 square meters End Stage Renal Disease: Less than 15 mL/min/1.73 square meters Globulin 4.0 G/dL Invalid Interpretation Code AO ADM SS Glucose [Mass/Vol] 128 mg/dL High 70 - 105 mg/dL AO ADM SS Hematocrit (Bld) [Volume fraction] 34.7 % Low 37.0 - 47.0 % AO Workflow SS Hemoglobin (Bld) [Mass/Vol] 11.4 G/dL Low 12.0 - 16.0 G/dL AO Workflow SS Lymphocyte, Absolute 1.7 103/mcL Normal 0.8 - 3 .9 10^3/mcL AO Workflow SS Lymphocytes/100 WBC (Bld) 11.8 % Normal 10.0 - 50.0 % AO Workflow SS MCH (RBC) [Entitic mass] 30.0 pg Normal 27.0 - 31.2 pg AO Workflow SS MCHC 32.8 G/dL Low 33.0 - 37.0 G/dL AO Workflow SS MCV (RBC) [Entitic vol] 91.7 fL Normal 80.0 - 94.0 fL AO Workflow SS Monocyte distribution width Auto (Bld) [Entitic vol] 19.28 1 Normal 0.00 - 20.00 AO Workflow SS Comment on above: Result Comment: For ED adult patients suspected of sepsis, MDW<=20.0 does not rule out sepsis or risk of sepsis Monocyte, Absolute 0.6 103/mcL Normal 0.2 - 1.0 10^3/mcL AO Workflow SS Monocytes/100 WBC (Bld) 4.2 % Normal 1.7 - 13.0 % AO Workflow SS Natriuretic peptide.B prohormone N-Terminal [Mass/Vol] 140 pg/mL High 0 - 125 pg/mL AO ADM SS Comment on above: Interpretive Data: N T-proBNP results of less than 300 pg/mL effectively rules out acute congestive heart failure with 99% negative predictive value. Neutrophil, Absolute 12.1 103/mcL High 2.9 - 6 .2 10^3/mcL AO Workflow SS Neutrophils/100 WBC (Bld) 81.7 % High 37.0 - 80.0 % AO Workflow SS Platelet mean volume (Bld) [Entitic vol] 7.1 fL Low 7.4 - 10.4 fL AO Workflow SS Platelets (Bld) [#/Vol] 488 103/mcL High 130 - 400 10^3/mcL AO Workflow SS Potassium [Moles/Vol] 4.5 mmol/L Normal 3.5 - 5.1 mmol/L AO ADM SS Protein [Mass/Vol] 7.2 G/dL Normal 6.4 - 8.2 G/dL AO ADM SS RBC (Bld) [#/Vol] 3.79 106/mcL Low 4.20 - 5.4 0 10^6/mcL AO Workflow SS Sodium [Moles/Vol] 136 mmol/L Normal 136 - 145 mmol/L AO ADM SS Troponin I.cardiac DL <= 0.01 ng/mL [Mass/Vol] 8.5 ng/L Normal 0.0 - 51.4 ng/L AO ADM SS Urea nitrogen [Mass/Vol] 10 mg/dL Normal 7 - 18 mg/dL AO ADM SS Urea nitrogen/Creatinine [Mass ratio] 9 ratio Normal 7 - 27 ratio AO ADM SS WBC (Bld) [#/Vol] 14.8 103/mcL High 4.6 - 10.8 10^3/mcL AO Workflow SS PBNPon 04-20-2023 Natriuretic peptide B (Bld) [Mass/Vol] 140 pg/mL High 0-125 [facility] ([place]) Comment on above: Result Comment: NT-p roBNP results of less than 300 pg/mL effectivelyrules out acute congestive heart failure with 99% negative predictive value. Performed By: #### T JUAN CARLOS FAGAN, CMP, ADIFF, GFR, CBC, PBNP, ANEU ####[address] [place], [place] [address] TROPHSon 04-20-2023 Troponin I High Sensitivity 8.5 ng/L Normal 0.0-51.4 [facility] ([place]) Comment on above: Performed By: #### JUAN CARLOS ROSSI, CMP, ADIFF, GFR, CBC, PBNP, ANEU ####[address] [place], [place] [address] Troponin I High Sensitivity 5.6 ng/L Normal 0.0-51.4 [facility] ([place]) Comment on above: Performed By: ###Lucinda FAGAN ####[address] [place], [place] [address] XR CHEST 1 VIEWon 04-20-2023 XR CHEST 1 VIEW Normal [facility] ([place]) CNOVon 04-15-2023 CNOV Office Visit ([facility] ) KAMALA GRAY ([id number]) 1970 F Date Time Provider Department 04/15/23 3:00 PM SATNAM RODRIGUEZ [facility] During your visit today, we recorded the following information about you: Temperature Pulse Respiration Blood pressure 97.8 degrees 94/minute 18/minute 144/95 Weight 134.7 kg Satnam Rodriguez APRN.WRAPPING CLERK 04/15/2023 6:42 PM Signed Subjective HPI HPI Kamala Garcia Gray is a 52 year old female who presents today for CC of fall few weeks ago, hurt right lower extremity. Was seen in ER for head/neck, never examined right lower extremity. Has tried otc medication for relief. Symptoms are worsened by rom/walking. Denies diabetes. .Patient presents with: Trauma: RLE swelling pain and un healing wound x 3 weeks PAST MEDICAL HISTORY Diagnosis Date Asthma with COPD Celiac disease CKD (chronic kidney disease) Diabetes mellitus type 2 (HCC) Gout Hyperlipidemia Hypertension Hypothyroidism Microcytic anemia Obesity, Class III, BMI 40-49.9 (morbid obesity) (HCC) Renal calculi No past surgical history on file. ALLERGIES Hydrochlorothiazide, Naproxen, and Asa [Salicylates] MEDICATIONS apixaban (ELIQUIS) 5 mg tab(s) Take 5 mg by mouth once daily. ondansetron orally disintegrating (ZOFRAN ODT) 4 mg disintegrating tablet Take 1 tablet by mouth every 6 hours as needed for nausea/vomiting. progesterone micronized (PROMETRIUM) 200 mg capsule magnesium oxide 200 mg magnesium tab Take 1 tablet by mouth daily at bedtime. atogepant (QULIPTA) 30 mg tablet Take by mouth. budesonide-formoterol (SYMBICORT) 160-4.5 mcg/actuation inhaler Inhale 2 Puffs as instructed. fremanezumab-vfrm (AJOVY AUTOINJECTOR) 225 mg/1.5 mL auto-injector Inject 225 mg subcutaneously once every month. Do not shake. nystatin (MYCOSTATIN) powder Apply 1 application to affected area three times daily. megestrol (MEGACE) 40 mg tablet Take 40 mg by mouth once daily. TRELEGY ELLIPTA 100-62.5-25 mcg INHALE 1 PUFF DAILY with good oral care levothyroxine (SYNTHROID) 300 mcg tablet Take by mouth. Not taking benzonatate (TESSALON PERLES) 100 mg capsule Take 2 capsules by mouth three times daily as needed. (Patient not taking: Reported on 03/08/2023) guaiFENesin (MUCINEX FAST-MAX CHEST-CONGEST) 100 mg/5 mL syrup Take 20 mL by mouth every 4 hours as needed. (Patient not taking: Reported on 03/08/2023) acetaminophen(TYLENOL 325 MG TAB) No family history on file. Social History Tobacco Use Smoking status: Never Smokeless tobacco: Never Substance Use Topics Alcohol use: No Drug use: Never ROS Objective Blood pressure 144/95, pulse 94, temperature 36.6 ?C (97.8 ?F), resp. rate 18, weight 134.7 kg (297 lb), SpO2 99%. Physical Exam Constitutional: General: She is not in acute distress. Appearance: She is not toxic-appearing or diaphoretic. HENT: Head: Normocephalic and atraumatic. Pulmonary: Effort: Pulmonary effort is normal. No accessory muscle usage or respiratory distress. Musculoskeletal: Feet: Neurological: Mental Status: She is alert and oriented to person, place, and time. ASSESSMENT/PLAN: 1. Closed fracture of right foot, initial encounter - ICD9: 825.20, ICD10: S92.901A (primary diagnosis) Boot supplied Otc management discussed Will refer to podiatry - CONSULT TO PODIATRY 2. Injury of right lower extremity, initial encounter - ICD9: 959.7, ICD10: S89.91XA - XR FOOT GENERAL 3V AP/LAT/OBL RIGHT IMPRESSION: Questionable fracture fragment near base of second metatarsal. If a true finding this would be consistent with a Lisfranc's type injury. Suggest correlation with CT of the foot. Plantar spur Soft tissue swelling. Dictated by : JAGJIT CENTENO MD - XR ANKLE GENERAL 3V AP/LAT/OBL RIGHT Satnam Rodriguez APRN.WRAPPING CLERK Allergies As of Date: 04/15/2023 Noted Allergy Reaction HYDROCHLOROTHIAZIDE 09/28/2019 16 - Unknown NAPROXEN 11/05/2018 11 - Vomiting ASA (SALICYLATES) 12/21/2007 Date Reviewed: 04/15/2023 Reviewed by: Isabel Anna LPN - Fully Assessed Reason for Visit: Trauma [112] Cmt: RLE swelling pain and un healing wound x 3 weeks Primary Visit Diagnosis:Closed fracture of right foot, initial encounter [S92.901A] Other Visit Diagnosis:Injury of right lower extremity, initial encounter [S89.91XA] Order(s):XR FOOT GENERAL 3V AP/LAT/OBL RIGHT [1227539] Order #: [id number]. #:[id number] XR ANKLE GENERAL 3V AP/LAT/OBL RIGHT [[id number]] Order #: [id number]. #:[id number] CONSULT TO PODIATRY [9034] Order #: [id number]: 1 FUTURE Prescriptions as of 04/15/2023 - apixaban (ELIQUIS) 5 mg tab(s) Take 5 mg by mouth once daily. - ondansetron orally disintegrating (ZOFRAN ODT) 4 mg disintegrating tablet Take 1 tablet by mouth every 6 hours as needed for nausea/vomiting. - progesterone micronized (PROMETRIUM) 200 mg caps (more content not included)... Normal [facility] No Panel Informationon 04-15 IMPRESSION: Questionable fracture fragment near base of second metatarsal. If a true finding this would be consistent with a Lisfranc's type injury. Suggest correlation with CT of the foot. Plantar spur Soft tissue swelling. Groundskeeping Maintenance: [facility] Transcribe Date/Time: Apr 15 2023 4:02P Dictated by : JAGJIT CENTENO MD This examination was interpreted and the report reviewed and electronically signed by: JAGJIT CENTENO MD on Apr 15 2023 4:06PM [facility] DIVISION OF RADIOLOGY Radiology Study observation (narrative) [facility] No Panel InformationOrdered By: Ccf Provider on 04-15-2023 [facility] XR ANKLE 3V AP/LAT/OBL RTon 04-15-2023 XR ANKLE 3V AP/LAT/OBL RT * * *Final Report* * * DATE OF EXAM: Apr 15 2023 4:00PM WOX 5297 - XR ANKLE 3V AP/LAT/OBL RT / PROCEDURE REASON: Injury of right lower extremity, initial encounter * * * * Physician Interpretation * * * * Right ankle and foot are HISTORY: 52 years old Clinical information: Injury of right lower extremity, initial encounter Right ankle and right foot pain after recent injury. Pt described pain as all over entire ankle and foot. TECHNIQUE: Images: XR ANKLE 3V AP/LAT/OBL RT, XR FOOT 3V AP/LAT/OBL RT Comparison: None. RESULT: Findings: There is a little soft tissue swelling. Linear high attenuation along the medial base of second metatarsal might represent a posterior fracture fragment. No definite joint space widening. No subluxation. There is a calcaneal enthesophyte at the origin of the plantar fascia. IMPRESSION: Questionable fracture fragment near base of second metatarsal. If a true finding this would be consistent with a Lisfranc's type injury. Suggest correlation with CT of the foot. Plantar spur Soft tissue swelling. Groundskeeping Maintenance: [facility] Transcribe Date/Time: Apr 15 2023 4:02P Dictated by : JAGJIT CENTENO MD This examination was interpreted and the report reviewed and electronically signed by: JAGJIT CENTENO MD on Apr 15 2023 4:06PM EST [id number] N Normal [facility] XR Ankle - right AP and Late ral and obliqueon 04-15-2023 * * *Final Report* * * DATE OF EXAM: Apr 15 2023 4:00PM WOX 5297 - XR ANKLE 3V AP/LAT/OBL RT / PROCEDURE REASON: Injury of right lower extremity, initial encounter * * * * Physician Interpretation * * * * Right ankle and foot are HISTORY: 52 years old Clinical information: Injury of right lower extremity, initial encounter Right ankle and right foot pain after recent injury. Pt described pain as all over entire ankle and foot. TECHNIQUE: Images: XR ANKLE 3V AP/LAT/OBL RT, XR FOOT 3V AP/LAT/OBL RT Comparison: None. RESULT: Findings: There is a little soft tissue swelling. Linear high attenuation along the medial base of second metatarsal might represent a posterior fracture fragment. No definite joint space widening. No subluxation. There is a calcaneal enthesophyte at the origin of the plantar fascia. DIVISION OF RADIOLOGY Provider, [facility] - 04/15/2023 * * *Final Report* * * DATE OF EXAM: Apr 15 2023 4:00PM WOX 5297 - XR ANKLE 3V AP/LAT/OBL RT / PROCEDURE REASON: Injury of right lower extremity, initial encounter * * * * Physician Interpretation * * * * Right ankle and foot are HISTORY: 52 years old Clinical information: Injury of right lower extremity, initial encounter Right ankle and right foot pain after recent injury. Pt described pain as all over entire ankle and foot. TECHNIQUE: Images: XR ANKLE 3V AP/LAT/OBL RT, XR FOOT 3V AP/LAT/OBL RT Comparison: None. RESULT: Findings: There is a little soft tissue swelling. Linear high attenuation along the medial base of second metatarsal might represent a posterior fracture fragment. No definite joint space widening. No subluxation. There is a calcaneal enthesophyte at the origin of the plantar fascia. IMPRESSION IMPRESSION: Questionable fracture fragment near base of second metatarsal. If a true finding this would be consistent with a Lisfranc's type injury. Suggest correlation with CT of the foot. Plantar spur Soft tissue swelling. Groundskeeping Maintenance: [facility] Transcribe Date/Time: Apr 15 2023 4:02P Dictated by : JAGJIT CENTENO MD This examination was interpreted and the report reviewed and electronically signed by: JAGJIT CENTENO MD on Apr 15 2023 4:06PM [facility] [place] [facility] XR FOOT 3V AP/LAT/OBL RTon 0 04-15-2023 XR FOOT 3V AP/LAT/OBL RT * * *Final Report* * * DATE OF EXAM: Apr 15 2023 4:00PM WOX 5337 - XR FOOT 3V AP/LAT/OBL RT / PROCEDURE REASON: Injury of right lower extremity, initial encounter * * * * Physician Interpretation * * * * Right ankle and foot are HISTORY: 52 years old Clinical information: Injury of right lower extremity, initial encounter Right ankle and right foot pain after recent injury. Pt described pain as all over entire ankle and foot. TECHNIQUE: Images: XR ANKLE 3V AP/LAT/OBL RT, XR FOOT 3V AP/LAT/OBL RT Comparison: None. RESULT: Findings: There is a little soft tissue swelling. Linear high attenuation along the medial base of second metatarsal might represent a posterior fracture fragment. No definite joint space widening. No subluxation. There is a calcaneal enthesophyte at the origin of the plantar fascia. IMPRESSION: Questionable fracture fragment near base of second metatarsal. If a true finding this would be consistent with a Lisfranc's type injury. Suggest correlation with CT of the foot. Plantar spur Soft tissue swelling. Groundskeeping Maintenance: [facility] Transcribe Date/Time: Apr 15 2023 4:02P Dictated by : JAGJIT CENTENO MD This examination was interpreted and the report reviewed and electronically signed by: JAGJIT CENTENO MD on Apr 15 2023 4:06PM EST [id number] N Normal [facility] XR Foot - right AP and Later al and obliqueon 04-15-2023 * * *Final Report* * * DATE OF EXAM: Apr 15 2023 4:00PM WOX 5337 - XR FOOT 3V AP/LAT/OBL RT / PROCEDURE REASON: Injury of right lower extremity, initial encounter * * * * Physician Interpretation * * * * Right ankle and foot are HISTORY: 52 years old Clinical information: Injury of right lower extremity, initial encounter Right ankle and right foot pain after recent injury. Pt described pain as all over entire ankle and foot. TECHNIQUE: Images: XR ANKLE 3V AP/LAT/OBL RT, XR FOOT 3V AP/LAT/OBL RT Comparison: None. RESULT: Findings: There is a little soft tissue swelling. Linear high attenuation along the medial base of second metatarsal might represent a posterior fracture fragment. No definite joint space widening. No subluxation. There is a calcaneal enthesophyte at the origin of the plantar fascia. DIVISION OF RADIOLOGY Provider, [facility] - 04/15/2023 * * *Final Report* * * DATE OF EXAM: Apr 15 2023 4:00PM WOX 5337 - XR FOOT 3V AP/LAT/OBL RT / PROCEDURE REASON: Injury of right lower extremity, initial encounter * * * * Physician Interpretation * * * * Right ankle and foot are HISTORY: 52 years old Clinical information: Injury of right lower extremity, initial encounter Right ankle and right foot pain after recent injury. Pt described pain as all over entire ankle and foot. TECHNIQUE: Images: XR ANKLE 3V AP/LAT/OBL RT, XR FOOT 3V AP/LAT/OBL RT Comparison: None. RESULT: Findings: There is a little soft tissue swelling. Linear high attenuation along the medial base of second metatarsal might represent a posterior fracture fragment. No definite joint space widening. No subluxation. There is a calcaneal enthesophyte at the origin of the plantar fascia. IMPRESSION IMPRESSION: Questionable fracture fragment near base of second metatarsal. If a true finding this would be consistent with a Lisfranc's type injury. Suggest correlation with CT of the foot. Plantar spur Soft tissue swelling. Groundskeeping Maintenance: [facility] Transcribe Date/Time: Apr 15 2023 4:02P Dictated by : JAGJIT CENTENO MD This examination was interpreted and the report reviewed and electronically signed by: JAGJIT CENTENO MD on Apr 15 2023 4:06PM [facility] [place] [facility] .Auto Diffon 04-03-2023 Basophil, Absolute 0.1 10 3/mcL Normal 0.0-0.2 [facility] ([place]) Comment on above: Performed By: #### C JUAN CARLOS MARKS, GFR, ANEU, TROPHS, ADIFF, CBC ####[address] [place], [place] [address] Basophils/100 WBC (Bld) 0.8 % Normal 0.0-2.5 [facility] ([place]) Comment on above: Performed By: #### C JUAN CARLOS MARKS, GFR, ANEU, TROPHS, ADIFF, CBC ####[address] [place], [place] [address] Eosinophil, Absolute 0.5 10 3/mcL High 0.0-0.4 [facility] ([place]) Comment on above: Performed By: #### C JUAN CARLOS MARKS, GFR, ANEU, TROPHS, ADIFF, CBC ####[address] [place], [place] [address] Eosinophils/100 WBC (Bld) 4.5 % Normal 0.0-7.0 [facility] ([place]) Comment on above: Performed By: #### C JUAN CARLOS MARKS, GFR, ANEU, TROPHS, ADIFF, CBC ####[address] [place], [place] [address] Lymphocyte, Absolute 1.4 10 3/mcL Normal 0.8-3.9 [facility] ([place] Comment on above: Performed By: #### C JUAN CARLOS MARKS, GFR, ANEU, TROPHS, ADIFF, CBC ####[address] [place], [place] [address] Lymphocytes/100 WBC (Bld) 13.7 % Normal 10.0-50.0 [facility] ([place]) Comment on above: Performed By: #### C JUAN CARLOS MARKS, GFR, ANEU, TROPHS, ADIFF, CBC ####[address] [place], [place] [address] Monocyte, Absolute 0.6 10 3/mcL Normal 0.2-1.0 [facility] ([place]) Comment on above: Performed By: #### C JUAN CARLOS MARKS, GFR, ANEU, TROPHS, ADIFF, CBC ####[address] [place], [place] [address] Monocytes/100 WBC (Bld) 5.5 % Normal 1.7-13.0 [facility] ([place]) Comment on above: Performed By: #### C JUAN CARLOS MARKS, GFR, ANEU, TROPHS, ADIFF, CBC ####[address] [place], [place] [address] Neutrophils/100 WBC (Bld) 75.5 % Normal 37.0-80.0 [facility] ([place]) Comment on above: Performed By: #### C JUAN CARLOS MARKS, GFR, ANEU, TROPHS, ADIFF, CBC ####[address] [place], [place] [address] .GFRon 04-03-2023 GFR 64 ml/min/1.73sqm Normal [facility] ([place]) Comment on above: Result Comment: GFR Population mean for , Non- Americans Ages 20-29 = 116 mL/min/1.73 sq.m. Ages 30-39 = 107 mL/min/1.73 sq.m. Ages 40-49 = 99 mL/min/1.73 sq.m. Ages 50-59 = 93 mL/min/1.73 sq.m. Ages 60-69 = 85 mL/min/1.73 sq.m. Ages 70+ = 75 mL/min/1.73 sq.m.Chronic Kidney Disease: Less than 60 mL/min/1.73 square metersEnd Stage Renal Disease: Less than 15 mL/min/1.73 square meters Performed By: #### C JUAN CARLOS MARKS, GFR, ANEU, TROPHS, ADIFF, CBC ####[address] [place], [place] [address] GFR Non- 53 ml/min/1.73sqm Normal [facility] ([place]) Comment on above: Result Comment: GFR Population mean for , Non- Americans Ages 20-29 = 116 mL/min/1.73 sq.m. Ages 30-39 = 107 mL/min/1.73 sq.m. Ages 40-49 = 99 mL/min/1.73 sq.m. Ages 50-59 = 93 mL/min/1.73 sq.m. Ages 60-69 = 85 mL/min/1.73 sq.m. Ages 70+ = 75 mL/min/1.73 sq.m.Chronic Kidney Disease: Less than 60 mL/min/1.73 square metersEnd Stage Renal Disease: Less than 15 mL/min/1.73 square meters Performed By: #### C JUAN CARLOS MARKS, GFR, ANEU, TROPHS, ADIFF, CBC ####[address] [place], [place] [address] .MDWon 04-03-2023 Monocyte Distribution Width 17.77 Normal 0.00-20.00 [facility] ([place]) Comment on above: Result Comment: For ED adult patients suspected of sepsis, MDW<=20.0 does not rule out sepsis or risk of sepsis Performed By: #### C JUAN CARLOS MARKS, GFR, ANEU, TROPHS, ADIFF, CBC ####[address] [place], [place] [address] .NEUABSon 04-03-2023 Neutrophil, Absolute 7.7 10 3/mcL High 2.9-6.2 [facility] [place] Comment on above: Performed By: #### C JUAN CARLOS MARKS, GFR, ANEU, TROPHS, ADIFF, CBC ####[address] [place], [place] [address] CBCon 04-03-2023 Erythrocyte distribution width (RBC) [Ratio] 16.3 % High 11.5-14.5 [facility] ([place]) Comment on above: Performed By: #### C JUAN CARLOS MARKS, GFR, ANEU, TROPHS, ADIFF, CBC ####[address] [place], [place] [address] Hematocrit (Bld) [Volume fraction] 36.9 % Low 37.0-47.0 [facility] ([place]) Comment on above: Performed By: #### C JUAN CARLOS MARKS, GFR, ANEU, TROPHS, ADIFF, CBC ####[address] [place], [place] [address] Hgb 12.1 G/dL Normal 12.0-16.0 [facility] ([place]) Comment on above: Performed By: #### C JUAN CARLOS MARKS, GFR, ANEU, TROPHS, ADIFF, CBC ####[address] [place], [place] [address] MCH (RBC) [Entitic mass] 31.4 pg High 27.0-31.2 [facility] ([place]) Comment on above: Performed By: #### C JUAN CARLOS MARKS, GFR, ANEU, TROPHS, ADIFF, CBC ####[address] [place], [place] [address] MCHC 32.7 G/dL Low 33.0-37.0 [facility] ([place]) Comment on above: Performed By: #### C JUAN CARLOS MARKS, GFR, ANEU, TROPHS, ADIFF, CBC ####[address] [place], [place] [address] MCV (RBC) [Entitic vol] 95.8 fL High 80.0-94.0 [facility] ([place]) Comment on above: Performed By: #### C JUAN CARLOS MARKS, GFR, ANEU, TROPHS, ADIFF, CBC ####[address] [place], [place] [address] Platelet 410 10 3/mcL High 130-400 [facility] ([place]) Comment on above: Performed By: #### C JUAN CARLOS MARKS, GFR, ANEU, TROPHS, ADIFF, CBC ####[address] [place], [place] [address] Platelet mean volume (Bld) [Entitic vol] 7.5 fL Normal 7.4-10.4 [facility] ([place]) Comment on above: Performed By: #### C JUAN CARLOS MARKS, GFR, ANEU, TROPHS, ADIFF, CBC ####[address] [place], [place] [address] RBC 3.85 10 6/mcL Low 4.20-5.40 [facility] ([place]) Comment on above: Performed By: #### C JUAN CARLOS MARKS, GFR, ANEU, TROPHS, ADIFF, CBC ####[address] [place], [place] [address] WBC 10.2 10 3/mcL Normal 4.6-10.8 [facility] ([place]) Comment on above: Performed By: #### C JUAN CARLOS MARKS, GFR, ANEU, TROPHS, ADIFF, CBC ####[address] [place], [place] [address] CMPon 04-03-2023 Albumin Level 3.2 G/dL Low 3.5-5.0 [facility] ([place]) Comment on above: Performed By: #### C JUAN CARLOS MARKS, GFR, ANEU, TROPHS, ADIFF, CBC ####[address] [place], [place] [address] Albumin/Globulin [Mass ratio] 0.8 {ratio} Low 1.1-2.5 [facility] ([place]) Comment on above: Performed By: #### C JUAN CARLOS MARKS, GFR, ANEU, TROPHS, ADIFF, CBC ####[address] [place], [place] [address] ALP [Catalytic activity/Vol] 134 U/L Normal 40-135 [facility] ([place]) Comment on above: Performed By: #### C JUAN CARLOS MARKS, GFR, ANEU, TROPHS, ADIFF, CBC ####[address] [place], [place] [address] ALT [Catalytic activity/Vol] 33 U/L Normal 14-59 [facility] ([place]) Comment on above: Performed By: #### C JUAN CARLOS MARKS, GFR, ANEU, TROPHS, ADIFF, CBC ####[address] [place], [place] [address] AST [Catalytic activity/Vol] 50 U/L High 10-40 [facility] ([place]) Comment on above: Performed By: #### C JUAN CARLOS MARKS, GFR, ANEU, TROPHS, ADIFF, CBC ####[address] [place], [place] [address] Bili Total 0.4 mg/dL Normal 0.2-1.0 [facility] ([place]) Comment on above: Result Comment: Use of this assay is not recommended for patients undergoing treatment with eltrombopag due to the potential for falsely elevated results. Performed By: #### C JUAN CARLOS MARKS, GFR, ANEU, TROPHS, ADIFF, CBC ####[address] [place], [place] [address] BUN/Creatinine Ratio 6 ratio Low 7-27 [facility] ([place]) Comment on above: Performed By: #### C JUAN CARLOS MARKS, GFR, ANEU, TROPHS, ADIFF, CBC ####[address] [place], [place] [address] Calcium [Mass/Vol] 9.2 mg/dL Normal 8.4-10.2 Replaced by [facility] ([place]) Comment on above: Performed By: #### C JUAN CARLOS MARKS, GFR, ANEU, TROPHS, ADIFF, CBC ####[address] [place], [place] [address] Chloride [Moles/Vol] 102 mmol/L Normal 98-107 [facility] ([place]) Comment on above: Performed By: #### C JUAN CARLOS MARKS, GFR, ANEU, TROPHS, ADIFF, CBC ####[address] [place], [place] [address] CO2 [Moles/Vol] 27 mmol/L Normal 22-29 [facility] ([place]) Comment on above: Performed By: #### C JUAN CARLOS MARKS, GFR, ANEU, TROPHS, ADIFF, CBC ####[address] [place], [place] [address] Creatinine [Mass/Vol] 1.09 mg/dL High 0.55-1.02 [facility] ([place]) Comment on above: Performed By: #### C JUAN CARLOS MARKS, GFR, ANEU, TROPHS, ADIFF, CBC ####[address] [place], [place] [address] Electrolyte Balance 12.0 mEq/L Normal 4.0-15.0 Formerly [facility] ([place]) Comment on above: Performed By: #### C JUAN CARLOS MARKS, GFR, ANEU, TROPHS, ADIFF, CBC ####[address] [place], [place] [address] Globulin 4.1 G/dL Normal [facility] ([place]) Comment on above: Performed By: #### C JUAN CARLOS MARKS, GFR, ANEU, TROPHS, ADIFF, CBC ####[address] [place], [place] [address] Glucose [Mass/Vol] 118 mg/dL High 70-105 Replaced by [facility] ([place]) Comment on above: Performed By: #### C JUAN CARLOS MARKS, GFR, ANEU, TROPHS, ADIFF, CBC ####[address] [place], [place] [address] Potassium [Moles/Vol] 4.1 mmol/L Normal 3.5-5.1 [facility] ([place]) Comment on above: Performed By: #### C JUAN CARLOS MARKS, GFR, ANEU, TROPHS, ADIFF, CBC ####[address] [place], [place] [address] Sodium [Moles/Vol] 141 mmol/L Normal 136-145 Replaced by [facility] ([place]) Comment on above: Performed By: #### C JUAN CARLOS MARKS, GFR, ANEU, TROPHS, ADIFF, CBC ####[address] [place], [place] [address] Total Protein 7.3 G/dL Normal 6.4-8.2 [facility] ([place]) Comment on above: Performed By: #### C JUAN CARLOS MARKS, GFR, ANEU, TROPHS, ADIFF, CBC ####[address] [place], [place] [address] Urea nitrogen [Mass/Vol] 6 mg/dL Low 7-18 [facility] ([place]) Comment on above: Performed By: #### C JUAN CARLOS MARKS, GFR, ANEU, TROPHS, ADIFF, CBC ####John[address] [place], [place] [address] CT ABD/PELVIS W/ IV CONTRAST ONLYon 04-03-2023 CT ABD/PELVIS W/ IV CONTRAST ONLY Normal [facility] ([place]) LABORATORYOrdered By: Michell Craig on 04-03-2023 Appearance (U) Clear (04/03/23 5:54 PM) Normal Clear AO Auto Urine SS Bilirubin Ql (U) Negative (04/03/23 5:54 PM) Normal Negative AO Auto Urine SS Color (U) Yellow (04/03/23 5:54 PM) Normal AO Auto Urine SS Glucose Test strip (U) [Mass/Vol] Negative Normal Negative AO Auto Urine SS Hemoglobin Auto test strip (U) [Mass/Vol] Negative (04/03/23 5:54 PM) Normal Negative AO Auto Urine SS Ketones Ql (U) Negative Normal Negative AO Auto Ur ine SS UA Leuk Est Negative (04/03/23 5:54 PM) Normal Negative AO Auto Urine SS UA Nitrite Negative (04/03/23 5:54 PM) Normal Negative AO Auto Urine SS UA pH 6.0 (04/03/23 5:54 PM) Normal 5.0 - 8.0 AO Auto Urine SS UA Protein Negative Normal Negative AO Auto Urine SS UA Spec Grav 1.015 (04/03/23 5:54 PM) Normal 1.015-1.025 AO Auto Urine SS UA Specimen Type Void (04/03/23 5:54 PM) Normal AO Auto Urine SS UA Urobilinogen 0.2 E.U./dL Normal 0.2-1.0 AO Auto Urine SS LABORATORYOrdered By: SYSTEM SYSTEM on 04-03-2023 Albumin BCP dye [Mass/Vol] 3.2 G/dL Low 3.5 - 5.0 G/dL AO ADM SS Albumin/Globulin [Mass ratio] 0.8 {ratio} Low 1.1 - 2.5 ratio AO ADM SS ALP [Catalytic activity/Vol] 134 U/L Normal 40 - 135 U/L AO ADM SS ALT With P-5'-P [Catalytic activity/Vol] 33 U/L Normal 14 - 59 U/L AO ADM SS AST With P-5'-P [Catalytic activity/Vol] 50 U/L High 10 - 40 U/L AO ADM SS Basophil, Absolute 0.1 103/mcL Normal 0.0 - 0.2 10^3/mcL AO Workflow SS Basophils/100 WBC (Bld) 0.8 % Normal 0.0 - 2.5 % AO Workflow SS Bilirubin [Mass/Vol] 0.4 mg/dL Normal 0.2 - 1 .0 mg/dL AO ADM SS Comment on above: Interpretive Data: U se of this assay is not recommended for patients undergoing treatment with eltrombopag due to the potential for falsely elevated results. Calcium [Mass/Vol] 9.2 mg/dL Normal 8.4 - 10. 2 mg/dL AO ADM SS Chloride [Moles/Vol] 102 mmol/L Normal 98 - 10 7 mmol/L AO ADM SS CO2 [Moles/Vol] 27 mmol/L Normal 22 - 29 mmol/L AO ADM SS Creatinine [Mass/Vol] 1.09 mg/dL High 0.55 - 1.02 mg/dL AO ADM SS Electrolyte Balance 12.0 mEq/L Normal 4.0 - 15 .0 mEq/L AO ADM SS Eosinophil, Absolute 0.5 103/mcL High 0.0 - 0 .4 10^3/mcL AO Workflow SS Eosinophils/100 WBC (Bld) 4.5 % Normal 0.0 - 7.0 % AO Workflow SS Erythrocyte distribution width (RBC) [Ratio] 16.3 % High 11.5 - 14.5 % AO Workflow SS GFR/1.73 sq M.predicted among blacks MDRD (S/P/Bld) [Vol rate/Area] 64 ml/min/1.73sqm Invalid Interpretation Code AO Chemistry S Comment on above: Interpretive Data: GFR Population mean for , Non- Americans Ages 20-29 = 116 mL/min/1.73 sq.m. Ages 30-39 = 107 mL/min/1.73 sq.m. Ages 40-49 = 99 mL/min/1.73 sq.m. Ages 50-59 = 93 mL/min/1.73 sq.m. Ages 60-69 = 85 mL/min/1.73 sq.m. Ages 70+ = 75 mL/min/1.73 sq.m. Chronic Kidney Disease: Less than 60 mL/min/1.73 square meters End Stage Renal Disease: Less than 15 mL/min/1.73 square meters GFR/1.73 sq M.predicted among non-blacks MDRD (S/P/Bld) [Vol rate/Area] 53 ml/min/1.73sqm Invalid Interpretation Code AO Chemistry S Comment on above: Interpretive Data: GFR Population mean for , Non- Americans Ages 20-29 = 116 mL/min/1.73 sq.m. Ages 30-39 = 107 mL/min/1.73 sq.m. Ages 40-49 = 99 mL/min/1.73 sq.m. Ages 50-59 = 93 mL/min/1.73 sq.m. Ages 60-69 = 85 mL/min/1.73 sq.m. Ages 70+ = 75 mL/min/1.73 sq.m. Chronic Kidney Disease: Less than 60 mL/min/1.73 square meters End Stage Renal Disease: Less than 15 mL/min/1.73 square meters Globulin 4.1 G/dL Invalid Interpretation Code AO ADM SS Glucose [Mass/Vol] 118 mg/dL High 70 - 105 mg/dL AO ADM SS Hematocrit (Bld) [Volume fraction] 36.9 % Low 37.0 - 47.0 % AO Workflow SS Hemoglobin (Bld) [Mass/Vol] 12.1 G/dL Normal 12.0 - 16.0 G/dL AO Workflow SS Lymphocyte, Absolute 1.4 103/mcL Normal 0.8 - 3 .9 10^3/mcL AO Workflow SS Lymphocytes/100 WBC (Bld) 13.7 % Normal 10.0 - 50.0 % AO Workflow SS MCH (RBC) [Entitic mass] 31.4 pg High 27.0 - 31.2 pg AO Workflow SS MCHC 32.7 G/dL Low 33.0 - 37.0 G/dL AO Workflow SS MCV (RBC) [Entitic vol] 95.8 fL High 80.0 - 94.0 fL AO Workflow SS Monocyte distribution width Auto (Bld) [Entitic vol] 17.77 1 Normal 0.00 - 20.00 AO Workflow SS Comment on above: Result Comment: For ED adult patients suspected of sepsis, MDW<=20.0 does not rule out sepsis or risk of sepsis Monocyte, Absolute 0.6 103/mcL Normal 0.2 - 1.0 10^3/mcL AO Workflow SS Monocytes/100 WBC (Bld) 5.5 % Normal 1.7 - 13.0 % AO Workflow SS Neutrophil, Absolute 7.7 103/mcL High 2.9 - 6 .2 10^3/mcL AO Workflow SS Neutrophils/100 WBC (Bld) 75.5 % Normal 37.0 - 80.0 % AO Workflow SS Platelet mean volume (Bld) [Entitic vol] 7.5 fL Normal 7.4 - 10.4 fL AO Workflow SS Platelets (Bld) [#/Vol] 410 103/mcL High 130 - 400 10^3/mcL AO Workflow SS Potassium [Moles/Vol] 4.1 mmol/L Normal 3.5 - 5.1 mmol/L AO ADM SS Protein [Mass/Vol] 7.3 G/dL Normal 6.4 - 8.2 G/dL AO ADM SS RBC (Bld) [#/Vol] 3.85 106/mcL Low 4.20 - 5.4 0 10^6/mcL AO Workflow SS Sodium [Moles/Vol] 141 mmol/L Normal 136 - 145 mmol/L AO ADM SS Troponin I.cardiac DL <= 0.01 ng/mL [Mass/Vol] 7.5 ng/L Normal 0.0 - 51.4 ng/L AO ADM SS Urea nitrogen [Mass/Vol] 6 mg/dL Low 7 - 18 mg/dL AO ADM SS Urea nitrogen/Creatinine [Mass ratio] 6 ratio Low 7 - 27 ratio AO ADM SS WBC (Bld) [#/Vol] 10.2 103/mcL Normal 4.6 - 10.8 10^3/mcL AO Workflow SS TROPHSon 04-03-2023 Troponin I High Sensitivity 7.5 ng/L Normal 0.0-51.4 [facility] ([place]) Comment on above: Performed By: #### C MD SELINAW, GFR, ANEU, TROPHS, ADIFF, CBC ####[address] [place], [place] [address] UAon 04-03-2023 Color (U) Yellow Normal [facility] ([place]) Comment on above: Performed By: #### U A ####[address] [place], [place] [address] Glucose (U) [Mass/Vol] Negative Normal Negative [facility] ([place]) Comment on above: Performed By: #### U A ####[address] [place], [place] [address] Ketones Ql (U) Negative Normal Negative [facility] ([place]) Comment on above: Performed By: #### U A ####[address] [place], [place] [address] UA Appear Clear Normal Clear [facility] ([place]) Comment on above: Performed By: #### U A ####[address] [place], [place] [address] UA Blood Negative Normal Negative [facility] ([place]) Comment on above: Performed By: #### U A ####[address] [place], [place] [address] UA Leuk Est Negative Normal Negative [facility] ([place]) Comment on above: Performed By: #### U A ####[address] [place], [place] [address] UA Nitrite Negative Normal Negative [facility] ([place]) Comment on above: Performed By: #### U A ####[address] [place], [place] [address] UA pH 6.0 Normal 5.0 - 8.0 [facility] ([place]) Comment on above: Performed By: #### U A ####[address] [place], [place] [address] UA Protein Negative Normal Negative [facility] ([place]) Comment on above: Performed By: #### U A ####[address] [place] [address] UA Spec Grav 1.015 Normal 1.015-1.025 [facility] ([place]) Comment on above: Performed By: #### U A ####[address] [place], [place] [address] UA Specimen Type Void Normal [facility] ([place]) Comment on above: Performed By: #### U A ####[address] [place], [place] [address] UA Urobilinogen 0.2 E.U./dL Normal 0.2-1.0 [facility] ([place]) Comment on above: Performed By: #### U A ####[address] [place], [place] [address] Urobilinogen (U) [Mass/Vol] Negative Normal Negative [facility] ([place]) Comment on above: Performed By: #### U A ####[address] [place], [place] [address] XR CHEST 1 VIEWon 04-03-2023 XR CHEST 1 VIEW Normal [facility] ([place]) CNOVon 03-31-2023 CNOV Office Visit (UCWSTR ) KAMALA GRAY ([id number]) 1970 F Date Time Provider Department 03/31/23 10:45 AM WHITLEY HSIEH RUST During your visit today, we recorded the following information about you: Temperature Pulse Respiration Blood pressure 98 degrees 97/minute 18/minute 122/82 Weight 127.3 kg Whitley Hsieh, MICAH.WRAPPING CLERK 03/31/2023 11:07 AM Signed ASSESSMENT/PLAN: 1. Headache, unspecified headache type - ICD9: 784.0, ICD10: R51.9 (primary diagnosis) - KETOROLAC 60 MG/2 ML INTRAMUSCULAR SOLUTION- given in office 2. Nausea - ICD9: 787.02, ICD10: R11.0 - ONDANSETRON 4 MG DISINTEGRATING TABLET - Follow-up with your PCP in 3-5 days if symptoms have not improved or sooner if symptoms worsen - Discussed red flags and need for immediate medical evaluation if any occur. - Discussed supportive care treatment with fluids, rest and analgesia. - Discussed expected course of illness Whitley Hsieh APRN.WRAPPING CLERK HEADACHE GENERAL INFORMATION: Almost everyone has a headache occasionally. Most headaches are caused by tension, eye strain, or emotional upset. Headaches can also occur with many medical illnesses. They may be a side effect of some medications. A headache that occurs without other symptoms and only lasts a few hours probably isn't a cause for concern. INSTRUCTIONS: 1. You may use [id number] pain medication such as acetaminophen, ibuprofen, or [...] talking, or moving your arms or legs. Whitley Hsieh APRN.WRAPPING CLERK 03/31/2023 11:26 AM Signed Subjective Headache Associated symptoms include nausea and vomiting. Pertinent negatives include no fever. Kamala Gray is a 52 year old female who presents with a headache and nausea for the past 2 days. She rates her headache pain 8/10. She denies visual changes or dizziness. She took her prescribed headache medication but it has not helped. She has not had any associated URI symptoms. She vomited twice yesterday. Review of Systems Constitutional: Negative for chills and fever. Respiratory: Negative. Cardiovascular: Negative. Gastrointestinal: Positive for nausea and vomiting. Negative for abdominal pain and diarrhea. Neurological: Positive for headaches. Negative for speech change, focal weakness, loss of consciousness and weakness. BP 122/82 Pulse 97 Temp 36.7 ?C (98 ?F) (Tympanic) Resp 18 Wt 127.3 kg (280 lb 11 oz) LMP (LMP Unknown) SpO2 96% PAST MEDICAL HISTORY Diagnosis Date Asthma with COPD Celiac disease CKD (chronic kidney disease) Diabetes mellitus type 2 (HCC) Gout Hyperlipidemia Hypertension Hypothyroidism Microcytic anemia Obesity, Class III, BMI 40-49.9 (morbid obesity) (HCC) Renal calculi No past surgical history on file. ALLERGIES Hydrochlorothiazide, Naproxen, and Asa [Salicylates] MEDICATIONS progesterone micronized (PROMETRIUM) 200 mg capsuleDisp: Rfl: magnesium oxide 200 mg magnesium tabTake 1 tablet by mouth daily at bedtime.Disp: 15 tabletRfl: 0 atogepant (QULIPTA) 30 mg tabletTake by mouth.Disp: Rfl: budesonide-formoterol (SYMBICORT) 160-4.5 mcg/actuation inhalerInhale 2 Puffs as instructed.Disp: Rfl: fremanezumab-vfrm (AJOVY AUTOINJECTOR) 225 mg/1.5 mL auto-injectorInject 225 mg subcutaneously once every month. Do not shake.Disp: Rfl: nystatin (MYCOSTATIN) powderApply 1 application to affected area three times daily.Disp: 60 gRfl: 0 megestrol (MEGACE) 40 mg tabletTake 40 mg by mouth once daily.Disp: Rfl: TRELEGY ELLIPTA 100-62.5-25 mcgINHALE 1 PUFF DAILY with good oral careDisp: Rfl: levothyroxine (SYNTHROID) 300 mcg tabletTake by mouth. Not takingDisp: 120 tabletRfl: 11 acetaminophen(TYLENO (more content not included)... Normal [facility] .Auto Diffon 03-28-2023 Basophil, Absolute 0.1 10 3/mcL Normal 0.0-0.2 [facility] ([place]) Comment on above: Performed By: #### C BC, ADIFF, GFR, MDW, BMP, ANEU, TROPHS ####Johny [address] [place], [place] [address] Basophils/100 WBC (Bld) 0.8 % Normal 0.0-2.5 [facility] ([place]) Comment on above: Performed By: #### C BC, ADIFF, GFR, MDW, BMP, ANEU, TROPHS ####[address] [place], [place] [address] Eosinophil, Absolute 0.5 10 3/mcL High 0.0-0.4 [facility] ([place]) Comment on above: Performed By: #### C BC, ADIFF, GFR, MDW, BMP, ANEU, TROPHS ####[address] [place], [place] [address] Eosinophils/100 WBC (Bld) 4.3 % Normal 0.0-7.0 [facility] ([place]) Comment on above: Performed By: #### C BC, ADIFF, GFR, MDW, BMP, ANEU, TROPHS ####[address] [place], [place] [address] Lymphocyte, Absolute 1.5 10 3/mcL Normal 0.8-3.9 [facility] ([place]) Comment on above: Performed By: #### C BC, ADIFF, GFR, MDW, BMP, ANEU, TROPHS ####[address]y [address] [place], [place] [address] Lymphocytes/100 WBC (Bld) 13.3 % Normal 10.0-50.0 [facility] ([place]) Comment on above: Performed By: #### C BC, ADIFF, GFR, MDW, BMP, ANEU, TROPHS ####Johny [address] [place], [place] [address] Monocyte, Absolute 0.9 10 3/mcL Normal 0.2-1.0 [facility] ([place]) Comment on above: Performed By: #### C BC, ADIFF, GFR, MDW, BMP, ANEU, TROPHS ####[address] [place], [place] [address] Monocytes/100 WBC (Bld) 7.6 % Normal 1.7-13.0 [facility] ([place]) Comment on above: Performed By: #### C BC, ADIFF, GFR, MDW, BMP, ANEU, TROPHS ####[address] [place], [place] [address] Neutrophils/100 WBC (Bld) 74.0 % Normal 37.0-80.0 [facility] ([place]) Comment on above: Performed By: #### C BC, ADIFF, GFR, MDW, BMP, ANEU, TROPHS ####[address] [place], [place] [address] .GFRon 03-28-2023 GFR 53 ml/min/1.73sqm Normal [facility] ([place]) Comment on above: Result Comment: GFR Population mean for , Non- Americans Ages 20-29 = 116 mL/min/1.73 sq.m. Ages 30-39 = 107 mL/min/1.73 sq.m. Ages 40-49 = 99 mL/min/1.73 sq.m. Ages 50-59 = 93 mL/min/1.73 sq.m. Ages 60-69 = 85 mL/min/1.73 sq.m. Ages 70+ = 75 mL/min/1.73 sq.m.Chronic Kidney Disease: Less than 60 mL/min/1.73 square metersEnd Stage Renal Disease: Less than 15 mL/min/1.73 square meters Performed By: #### C BC, ADIFF, GFR, MDW, BMP, ANEU, TROPHS ####[address] [place], [place] [address] GFR Non- 43 ml/min/1.73sqm Normal [facility] ([place]) Comment on above: Result Comment: GFR Population mean for , Non- Americans Ages 20-29 = 116 mL/min/1.73 sq.m. Ages 30-39 = 107 mL/min/1.73 sq.m. Ages 40-49 = 99 mL/min/1.73 sq.m. Ages 50-59 = 93 mL/min/1.73 sq.m. Ages 60-69 = 85 mL/min/1.73 sq.m. Ages 70+ = 75 mL/min/1.73 sq.m.Chronic Kidney Disease: Less than 60 mL/min/1.73 square metersEnd Stage Renal Disease: Less than 15 mL/min/1.73 square meters Performed By: #### C BC, ADIFF, GFR, MDW, BMP, ANEU, TROPHS ####[address] [place], [place] [address] .MDWon 03-28-2023 Monocyte Distribution Width 17.82 Normal 0.00-20.00 [facility] ([place]) Comment on above: Result Comment: For ED adult patients suspected of sepsis, MDW<=20.0 does not rule out sepsis or risk of sepsis Performed By: #### C BC, ADIFF, GFR, MDW, BMP, ANEU, TROPHS ####[address] [place], [place] [address] .NEUABSon 03-28-2023 Neutrophil, Absolute 8.5 10 3/mcL High 2.9-6.2 [facility] [place]) Comment on above: Performed By: #### C BC, ADIFF, GFR, MDW, BMP, ANEU, TROPHS ####[address] [place], [place] [address] BMPon 03-28-2023 BUN/Creatinine Ratio 4 ratio Low 7-27 [facility] ([place]) Comment on above: Performed By: #### C BC, ADIFF, GFR, MDW, BMP, ANEU, TROPHS ####[address] [place], [place] [address] Calcium [Mass/Vol] 9.5 mg/dL Normal 8.4-10.2 Replaced by [facility] ([place]) Comment on above: Performed By: #### C BC, ADIFF, GFR, MDW, BMP, ANEU, TROPHS ####[address] [place], [place] [address] Chloride [Moles/Vol] 105 mmol/L Normal 98-107 [facility] ([place]) Comment on above: Performed By: #### C BC, ADIFF, GFR, MDW, BMP, ANEU, TROPHS ####[address] [place], [place] [address] CO2 [Moles/Vol] 24 mmol/L Normal 22-29 [facility] ([place]) Comment on above: Performed By: #### C BC, ADIFF, GFR, MDW, BMP, ANEU, TROPHS ####[address] [place], [place] [address] Creatinine [Mass/Vol] 1.29 mg/dL High 0.55-1.02 [facility] ([place]) Comment on above: Performed By: #### C BC, ADIFF, GFR, MDW, BMP, ANEU, TROPHS ####Johny [address] [place], [place] [address] Electrolyte Balance 13.0 mEq/L Normal 4.0-15.0 [facility] ([place]) Comment on above: Performed By: #### C BC, ADIFF, GFR, MDW, BMP, ANEU, TROPHS ####[address] [place], [place] [address] Glucose [Mass/Vol] 127 mg/dL High 70-105 Replaced by [facility] ([place]) Comment on above: Performed By: #### C BC, ADIFF, GFR, MDW, BMP, ANEU, TROPHS ####[address] [place], [place] [address] Potassium [Moles/Vol] 4.3 mmol/L Normal 3.5-5.1 [facility] ([place]) Comment on above: Performed By: #### C BC, ADIFF, GFR, MDW, BMP, ANEU, TROPHS ####[address] [place], [place] [address] Sodium [Moles/Vol] 142 mmol/L Normal 136-145 Replaced by [facility] ([place]) Comment on above: Performed By: #### C BC, ADIFF, GFR, MDW, BMP, ANEU, TROPHS ####[address] [place], [place] [address] Urea nitrogen [Mass/Vol] 5 mg/dL Low 7-18 [facility] ([place]) Comment on above: Performed By: #### C BC, ADIFF, GFR, MDW, BMP, ANEU, TROPHS ####[address] [place], [place] [address] CBCon 03-28-2023 Erythrocyte distribution width (RBC) [Ratio] 15.7 % High 11.5-14.5 [facility] ([place]) Comment on above: Performed By: #### C BC, ADIFF, GFR, MDW, BMP, ANEU, TROPHS ####[address] [place], [place] [address] Hematocrit (Bld) [Volume fraction] 37.3 % Normal 37.0-47.0 [facility] ([place]) Comment on above: Performed By: #### C BC, ADIFF, GFR, MDW, BMP, ANEU, TROPHS ####Johny [address] [place], [place] [address] Hgb 12.4 G/dL Normal 12.0-16.0 [facility] ([place]) Comment on above: Performed By: #### C BC, ADIFF, GFR, MDW, BMP, ANEU, TROPHS ####[address]y [address] [place], [place] [address] MCH (RBC) [Entitic mass] 31.9 pg High 27.0-31.2 [facility] ([place]) Comment on above: Performed By: #### C BC, ADIFF, GFR, MDW, BMP, ANEU, TROPHS ####Johny [address] [place], [place] [address] MCHC 33.4 G/dL Normal 33.0-37.0 [facility] ([place]) Comment on above: Performed By: #### C BC, ADIFF, GFR, MDW, BMP, ANEU, TROPHS ####[address] [place], [place] [address] MCV (RBC) [Entitic vol] 95.7 fL High 80.0-94.0 [facility] ([place]) Comment on above: Performed By: #### C BC, ADIFF, GFR, MDW, BMP, ANEU, TROPHS ####Johny [address] [place], [place] [address] Platelet 434 10 3/mcL High 130-400 [facility] ([place]) Comment on above: Performed By: #### C BC, ADIFF, GFR, MDW, BMP, ANEU, TROPHS ####Johny [address] [place], [place] [address] Platelet mean volume (Bld) [Entitic vol] 7.5 fL Normal 7.4-10.4 [facility] ([place]) Comment on above: Performed By: #### C BC, ADIFF, GFR, MDW, BMP, ANEU, TROPHS ####Johny [address] [place], [place] [address] RBC 3.90 10 6/mcL Low 4.20-5.40 [facility] ([place]) Comment on above: Performed By: #### C BC, ADIFF, GFR, MDW, BMP, ANEU, TROPHS ####Johny [address] [place], [place] [address] WBC 11.5 10 3/mcL High 4.6-10.8 [facility] ([place]) Comment on above: Performed By: #### C BC, ADIFF, GFR, MDW, BMP, ANEU, TROPHS ####Johny [address] [place], [place] [address] CT ANGIOGRAPHY CHEST W/CONTR Radha 03-28-2023 CT ANGIOGRAPHY CHEST W/CONTRAST Normal [facility] ([place]) LABORATORYOrdered By: SYSTEM SYSTEM on 03-28-2023 Basophil, Absolute 0.1 103/mcL Normal 0.0 - 0.2 10^3/mcL AO Workflow SS Basophils/100 WBC (Bld) 0.8 % Normal 0.0 - 2.5 % AO Workflow SS Calcium [Mass/Vol] 9.5 mg/dL Normal 8.4 - 10. 2 mg/dL AO ADM SS Chloride [Moles/Vol] 105 mmol/L Normal 98 - 10 7 mmol/L AO ADM SS CO2 [Moles/Vol] 24 mmol/L Normal 22 - 29 mmol/L AO ADM SS Creatinine [Mass/Vol] 1.29 mg/dL High 0.55 - 1.02 mg/dL AO ADM SS Electrolyte Balance 13.0 mEq/L Normal 4.0 - 15 .0 mEq/L AO ADM SS Eosinophil, Absolute 0.5 103/mcL High 0.0 - 0 .4 10^3/mcL AO Workflow SS Eosinophils/100 WBC (Bld) 4.3 % Normal 0.0 - 7.0 % AO Workflow SS Erythrocyte distribution width (RBC) [Ratio] 15.7 % High 11.5 - 14.5 % AO Workflow SS GFR/1.73 sq M.predicted among blacks MDRD (S/P/Bld) [Vol rate/Area] 53 ml/min/1.73sqm Invalid Interpretation Code AO Chemistry S Comment on above: Interpretive Data: GFR Population mean for , Non- Americans Ages 20-29 = 116 mL/min/1.73 sq.m. Ages 30-39 = 107 mL/min/1.73 sq.m. Ages 40-49 = 99 mL/min/1.73 sq.m. Ages 50-59 = 93 mL/min/1.73 sq.m. Ages 60-69 = 85 mL/min/1.73 sq.m. Ages 70+ = 75 mL/min/1.73 sq.m. Chronic Kidney Disease: Less than 60 mL/min/1.73 square meters End Stage Renal Disease: Less than 15 mL/min/1.73 square meters GFR/1.73 sq M.predicted among non-blacks MDRD (S/P/Bld) [Vol rate/Area] 43 ml/min/1.73sqm Invalid Interpretation Code AO Chemistry S Comment on above: Interpretive Data: GFR Population mean for , Non- Americans Ages 20-29 = 116 mL/min/1.73 sq.m. Ages 30-39 = 107 mL/min/1.73 sq.m. Ages 40-49 = 99 mL/min/1.73 sq.m. Ages 50-59 = 93 mL/min/1.73 sq.m. Ages 60-69 = 85 mL/min/1.73 sq.m. Ages 70+ = 75 mL/min/1.73 sq.m. Chronic Kidney Disease: Less than 60 mL/min/1.73 square meters End Stage Renal Disease: Less than 15 mL/min/1.73 square meters Glucose [Mass/Vol] 127 mg/dL High 70 - 105 mg/dL AO ADM SS Hematocrit (Bld) [Volume fraction] 37.3 % Normal 37.0 - 47.0 % AO Workflow SS Hemoglobin (Bld) [Mass/Vol] 12.4 G/dL Normal 12.0 - 16.0 G/dL AO Workflow SS Lymphocyte, Absolute 1.5 103/mcL Normal 0.8 - 3 .9 10^3/mcL AO Workflow SS Lymphocytes/100 WBC (Bld) 13.3 % Normal 10.0 - 50.0 % AO Workflow SS MCH (RBC) [Entitic mass] 31.9 pg High 27.0 - 31.2 pg AO Workflow SS MCHC 33.4 G/dL Normal 33.0 - 37.0 G/dL AO Workflow SS MCV (RBC) [Entitic vol] 95.7 fL High 80.0 - 94.0 fL AO Workflow SS Monocyte distribution width Auto (Bld) [Entitic vol] 17.82 1 Normal 0.00 - 20.00 AO Workflow SS Comment on above: Result Comment: For ED adult patients suspected of sepsis, MDW<=20.0 does not rule out sepsis or risk of sepsis Monocyte, Absolute 0.9 103/mcL Normal 0.2 - 1.0 10^3/mcL AO Workflow SS Monocytes/100 WBC (Bld) 7.6 % Normal 1.7 - 13.0 % AO Workflow SS Neutrophil, Absolute 8.5 103/mcL High 2.9 - 6 .2 10^3/mcL AO Workflow SS Neutrophils/100 WBC (Bld) 74.0 % Normal 37.0 - 80.0 % AO Workflow SS Platelet mean volume (Bld) [Entitic vol] 7.5 fL Normal 7.4 - 10.4 fL AO Workflow SS Platelets (Bld) [#/Vol] 434 103/mcL High 130 - 400 10^3/mcL AO Workflow SS Potassium [Moles/Vol] 4.3 mmol/L Normal 3.5 - 5.1 mmol/L AO ADM SS RBC (Bld) [#/Vol] 3.90 106/mcL Low 4.20 - 5.4 0 10^6/mcL AO Workflow SS Sodium [Moles/Vol] 142 mmol/L Normal 136 - 145 mmol/L AO ADM SS Troponin I.cardiac DL <= 0.01 ng/mL [Mass/Vol] 8.5 ng/L Normal 0.0 - 51.4 ng/L AO ADM SS Urea nitrogen [Mass/Vol] 5 mg/dL Low 7 - 18 mg/dL AO ADM SS Urea nitrogen/Creatinine [Mass ratio] 4 ratio Low 7 - 27 ratio AO ADM SS WBC (Bld) [#/Vol] 11.5 103/mcL High 4.6 - 10.8 10^3/mcL AO Workflow SS TROPHSon 03-28-2023 Troponin I High Sensitivity 8.5 ng/L Normal 0.0-51.4 [facility] ([place]) Comment on above: Performed By: #### C DM, EMANUEL, CHRISTIN, W, TIANA, HARSHAD, DARRELL ####[address]y [address] [place], [place] [address] CT HEAD OR BRAIN W/O CONTRAS Ton 03-23-2023 CT HEAD OR BRAIN W/O CONTRAST Normal [facility] ([place]) CNOVon 03-16-2023 CNOV Office Visit (UCWSTR ) KAMALA GRAY ([id number]) 1970 F Date Time Provider Department 03/16/23 9:00 AM CORNELIUS BANERJEE RUST During your visit today, we recorded the following information about you: Temperature Pulse Respiration Blood pressure 98.6 degrees 99/minute 18/minute 139/92 Weight 130.1 kg Cornelius Banerjee PA 03/16/2023 9:47 AM Signed This note was created using NoteWriter. Subjective Kamala Gray is a 52 year old female. HPI 52-year-old female presents for right great toe pain. Patient states she has history of gout and this feels similar. Her symptoms started a couple of days ago. She states it is red, swollen and painful to touch. Denies injury or fall. Of note, she is being treated for cellulitis/wound of the right gonzalez. It is scabbed over. She states symptoms are improving in regards to that. She is not on any medications for gout. Patient is also complaining of nausea, chills and generally not feeling well for the past day. She states she has not had any vomiting or diarrhea. No abdominal pain. She has chills and hot flashes. No fevers. No cough or URI symptoms. No other complaint. Patient states she is not a diabetic, not on any medications for diabetes. PAST MEDICAL HISTORY Diagnosis Date Asthma with COPD Celiac disease CKD (chronic kidney disease) Diabetes mellitus type 2 (HCC) Gout Hyperlipidemia Hypertension Hypothyroidism Microcytic anemia Obesity, Class III, BMI 40-49.9 (morbid obesity) (HCC) Renal calculi No past surgical history on file. ALLERGIES Hydrochlorothiazide, Naproxen, and Asa [Salicylates] MEDICATIONS progesterone micronized (PROMETRIUM) 200 mg capsule magnesium oxide 200 mg magnesium tab Take 1 tablet by mouth daily at bedtime. atogepant (QULIPTA) 30 mg tablet Take by mouth. budesonide-formoterol (SYMBICORT) 160-4.5 mcg/actuation inhaler Inhale 2 Puffs as instructed. fremanezumab-vfrm (AJOVY AUTOINJECTOR) 225 mg/1.5 mL auto-injector Inject 225 mg subcutaneously once every month. Do not shake. benzonatate (TESSALON PERLES) 100 mg capsule Take 2 capsules by mouth three times daily as needed. (Patient not taking: Reported on 03/08/2023) nystatin (MYCOSTATIN) powder Apply 1 application to affected area three times daily. ondansetron orally disintegrating (ZOFRAN ODT) 4 mg disintegrating tablet Take 1 tablet by mouth every 6 hours as needed for nausea/vomiting. (Patient not taking: Reported on 03/08/2023) guaiFENesin (MUCINEX FAST-MAX CHEST-CONGEST) 100 mg/5 mL syrup Take 20 mL by mouth every 4 hours as needed. (Patient not taking: Reported on 03/08/2023) megestrol (MEGACE) 40 mg tablet Take 40 mg by mouth once daily. (Patient not taking: Reported on 03/08/2023) TRELEGY ELLIPTA 100-62.5-25 mcg INHALE 1 PUFF DAILY with good oral care levothyroxine (SYNTHROID) 300 mcg tablet Take by mouth. Not taking acetaminophen(TYLENOL 325 MG TAB) No family history on file. Social History Tobacco Use Smoking status: Never Smokeless tobacco: Never Substance Use Topics Alcohol use: No Drug use: Never Review of Systems Constitutional: Positive for chills. Negative for fever. HENT: Negative for congestion, ear pain and sore throat. Respiratory: Negative for cough and shortness of breath. Cardiovascular: Negative for chest pain. Gastrointestinal: Positive for nausea. Negative for abdominal pain, diarrhea and vomiting. Genitourinary: Negative for flank pain, frequency and urgency. Musculoskeletal: Positive for arthralgias (Right great toe). Skin: Positive for color change. Objective BP 139/92 Pulse 99 Temp 37 ?C (98.6 ?F) Resp 18 Wt 130.1 kg (286 lb 12.8 oz) LMP (LMP Unknown) SpO2 96% Physical Exam Vitals and nursing note reviewed. Constitutional: General: She is not in acute distress. Appearance: Normal appearance. She is not toxic-appearing. HENT: Right Ear: Tympanic membrane and ear canal normal. Left Ear: Tympanic membrane and ear canal normal. Nose: Nose normal. Mouth/Throat: Mouth: Mucous membranes are moist. Pharynx: No oropharyngeal exudate or posterior oropharyngeal erythema. Eyes: Conjunctiva/sclera: Conjunctivae normal. Cardiovascular: Rate and Rhythm: Normal rate and regular rhythm. Pulmonary: Effort: Pulmonary effort is normal. Breath sounds: Normal breath sounds. Abdominal: General: Abdomen is flat. Palpations: Abdomen is soft. Tenderness: There is no abdominal tenderness. Musculoskeletal: Right foot: Normal capillary refill. Swelling, tenderness and bony tenderness present. Normal pulse. Legs: Comments: Patient has swelling no erythema noted around the right first MTP joint. Tender to touch. No lymphatic streaking. No fluctuance. No erythema of the toe or around the nail. DP and PT pulses 2+. No pitting edema. Normal sensation. Patient has a wound noted to right anter (more content not included)... Normal [facility] XR TOE 3V AP/LAT/OBL RTon XR TOE 3V AP/LAT/OBL RT * * *Final Report* * * DATE OF EXAM: Mar 16 2023 9:31AM WOX [id number] - XR TOE 3V AP/LAT/OBL RT / PROCEDURE REASON: Pain of right great toe * * * * Physician Interpretation * * * * TITLE: XR TOE 3V AP/LAT/OBL RT CLINICAL INDICATION: Toe pain TECHNIQUE: 3 view radiographic study of the right great toe COMPARISON: None FINDINGS: No acute fracture or dislocation identified. No radiographic evidence of destructive osseous lesion. No radiopaque foreign body. Atherosclerotic calcification in the vasculature. Otherwise, no soft tissue calcifications. IMPRESSION: No radiographic evidence of acute osseous abnormality Groundskeeping Maintenance: [facility] Transcribe Date/Time: Mar 16 2023 9:35A Dictated by : WILLIE DUDLEY MD This examination was interpreted and the report reviewed and electronically signed by: WILLIE DUDLEY MD on Mar 16 2023 9:37AM EST [id number] Normal [facility] XR Toes - right 3 Viewson IMPRESSION: No radiographic evidence of acute osseous abnormality Groundskeeping Maintenance: [facility] Transcribe Date/Time: Mar 16 2023 9:35A Dictated by : WILLIE DUDLEY MD This examination was interpreted and the report reviewed and electronically signed by: WILLIE DUDLEY MD on Mar 16 2023 9:37AM EST DIVISION OF RADIOLOGY * * *Final Report* * * DATE OF EXAM: Mar 16 2023 9:31AM WOX [id number] - XR TOE 3V AP/LAT/OBL RT / PROCEDURE REASON: Pain of right great toe * * * * Physician Interpretation * * * * TITLE: XR TOE 3V AP/LAT/OBL RT CLINICAL INDICATION: Toe pain TECHNIQUE: 3 view radiographic study of the right great toe COMPARISON: None FINDINGS: No acute fracture or dislocation identified. No radiographic evidence of destructive osseous lesion. No radiopaque foreign body. Atherosclerotic calcification in the vasculature. Otherwise, no soft tissue calcifications. DIVISION OF RADIOLOGY Provider, [facility] - 03/16/2023 * * *Final Report* * * DATE OF EXAM: Mar 16 2023 9:31AM WOX [id number] - XR TOE 3V AP/LAT/OBL RT / PROCEDURE REASON: Pain of right great toe * * * * Physician Interpretation * * * * TITLE: XR TOE 3V AP/LAT/OBL RT CLINICAL INDICATION: Toe pain TECHNIQUE: 3 view radiographic study of the right great toe COMPARISON: None FINDINGS: No acute fracture or dislocation identified. No radiographic evidence of destructive osseous lesion. No radiopaque foreign body. Atherosclerotic calcification in the vasculature. Otherwise, no soft tissue calcifications. IMPRESSION IMPRESSION: No radiographic evidence of acute osseous abnormality Groundskeeping Maintenance: [facility] Transcribe Date/Time: Mar 16 2023 9:35A Dictated by : WILLIE DUDLEY MD This examination was interpreted and the report reviewed and electronically signed by: WILLIE DUDLEY MD on Mar 16 2023 9:37AM EST [facility] Radiology Study observation (narrative) [facility] XR Toes - right 3 ViewsOrder ed By: Ccf Provider on 03-16-2023 [facility] CBLon 03-15-2023 CBL Normal [facility] ([place]) .GFRon 03-13-2023 GFR 61 ml/min/1.73sqm Normal [facility] ([place]) Comment on above: Result Comment: GFR Population mean for , Non- Americans Ages 20-29 = 116 mL/min/1.73 sq.m. Ages 30-39 = 107 mL/min/1.73 sq.m. Ages 40-49 = 99 mL/min/1.73 sq.m. Ages 50-59 = 93 mL/min/1.73 sq.m. Ages 60-69 = 85 mL/min/1.73 sq.m. Ages 70+ = 75 mL/min/1.73 sq.m.Chronic Kidney Disease: Less than 60 mL/min/1.73 square metersEnd Stage Renal Disease: Less than 15 mL/min/1.73 square meters Performed By: #### B MP, GFR ####[address] [place], [place] [address] GFR Non- 50 ml/min/1.73sqm Normal [facility] ([place]) Comment on above: Result Comment: GFR Population mean for , Non- Americans Ages 20-29 = 116 mL/min/1.73 sq.m. Ages 30-39 = 107 mL/min/1.73 sq.m. Ages 40-49 = 99 mL/min/1.73 sq.m. Ages 50-59 = 93 mL/min/1.73 sq.m. Ages 60-69 = 85 mL/min/1.73 sq.m. Ages 70+ = 75 mL/min/1.73 sq.m.Chronic Kidney Disease: Less than 60 mL/min/1.73 square metersEnd Stage Renal Disease: Less than 15 mL/min/1.73 square meters Performed By: #### B MP, GFR ####Johny [address] [place], [place] [address] BMPon 03-13-2023 BUN/Creatinine Ratio 6 ratio Low 7-27 [facility] ([place]) Comment on above: Performed By: #### Noris MP, GFR ####[address] [place], [place] [address] Calcium [Mass/Vol] 9.6 mg/dL Normal 8.4-10.2 Replaced by [facility] ([place]) Comment on above: Performed By: #### Noris MP, GFR ####[address] [place], [place] [address] Chloride [Moles/Vol] 99 mmol/L Normal 98-107 [facility] ([place]) Comment on above: Performed By: #### Noris MP, GFR ####[address] [place], [place] [address] CO2 [Moles/Vol] 27 mmol/L Normal 22-29 [facility] ([place]) Comment on above: Performed By: #### Noris MP, GFR ####Johny [address] [place], [place] [address] Creatinine [Mass/Vol] 1.14 mg/dL High 0.55-1.02 [facility] ([place]) Comment on above: Performed By: #### B MP, GFR ####Johny [address] [place], [place] [address] Electrolyte Balance 10.0 mEq/L Normal 4.0-15.0 [facility] ([place]) Comment on above: Performed By: #### Noris MP, GFR ####[address] [place], [place] [address] Glucose [Mass/Vol] 142 mg/dL High 70-105 Replaced by [facility] ([place]) Comment on above: Performed By: #### B MP, GFR ####Johny [address] [place], [place] [address] Potassium [Moles/Vol] 4.2 mmol/L Normal 3.5-5.1 [facility] ([place]) Comment on above: Performed By: #### B MP, GFR ####[address] [place], [place] [address] Sodium [Moles/Vol] 136 mmol/L Normal 136-145 Replaced by [facility] ([place]) Comment on above: Performed By: #### B MP, GFR ####[address] [place], [place] [address] Urea nitrogen [Mass/Vol] 7 mg/dL Normal 7-18 [facility] ([place]) Comment on above: Performed By: #### B MP, GFR ####[address] [place], [place] [address] CWDon 03-13-2023 CWD Normal [facility] ([place]) .Auto Diffon 03-11-2023 Basophil, Absolute 0.1 10 3/mcL Normal 0.0-0.2 [facility] ([place]) Comment on above: Performed By: #### M G, ANEU, BMP, CBC, GFR, ADIFF ####Johny [address] [place], [place] [address] Basophils/100 WBC (Bld) 0.8 % Normal 0.0-2.5 [facility] ([place]) Comment on above: Performed By: #### M G, ANEU, BMP, CBC, GFR, ADIFF ####[address] [place], [place] [address] Eosinophil, Absolute 0.6 10 3/mcL High 0.0-0.4 [facility] ([place]) Comment on above: Performed By: #### M G, ANEU, BMP, CBC, GFR, ADIFF ####[address] [place], [place] [address] Eosinophils/100 WBC (Bld) 6.9 % Normal 0.0-7.0 [facility] ([place]) Comment on above: Performed By: #### M G, ANEU, BMP, CBC, GFR, ADIFF ####[address] [place], [place] [address] Lymphocyte, Absolute 1.3 10 3/mcL Normal 0.8-3.9 [facility] ([place]) Comment on above: Performed By: #### M G, ANEU, BMP, CBC, GFR, ADIFF ####[address] [place], [place] [address] Lymphocytes/100 WBC (Bld) 15.2 % Normal 10.0-50.0 [facility] ([place]) Comment on above: Performed By: #### Juice G, ANEU, BMP, CBC, GFR, ADIFF ####[address] [place], [place] [address] Monocyte, Absolute 0.7 10 3/mcL Normal 0.2-1.0 [facility] ([place]) Comment on above: Performed By: #### M G, ANEU, BMP, CBC, GFR, ADIFF ####[address] [place], [place] [address] Monocytes/100 WBC (Bld) 8.6 % Normal 1.7-13.0 [facility] ([place]) Comment on above: Performed By: #### Juice G, ANEU, BMP, CBC, GFR, ADIFF ####[address] [place], [place] [address] Neutrophils/100 WBC (Bld) 68.5 % Normal 37.0-80.0 [facility] ([place]) Comment on above: Performed By: #### M G, ANEU, BMP, CBC, GFR, ADIFF ####[address] [place], [place] [address] .GFRon 03-11-2023 GFR 52 ml/min/1.73sqm Normal [facility] ([place]) Comment on above: Result Comment: GFR Population mean for , Non- Americans Ages 20-29 = 116 mL/min/1.73 sq.m. Ages 30-39 = 107 mL/min/1.73 sq.m. Ages 40-49 = 99 mL/min/1.73 sq.m. Ages 50-59 = 93 mL/min/1.73 sq.m. Ages 60-69 = 85 mL/min/1.73 sq.m. Ages 70+ = 75 mL/min/1.73 sq.m.Chronic Kidney Disease: Less than 60 mL/min/1.73 square metersEnd Stage Renal Disease: Less than 15 mL/min/1.73 square meters Performed By: #### M G, ANEU, BMP, CBC, GFR, ADIFF ####[address] [place], [place] [address] GFR Non- 43 ml/min/1.73sqm Normal [facility] ([place]) Comment on above: Result Comment: GFR Population mean for , Non- Americans Ages 20-29 = 116 mL/min/1.73 sq.m. Ages 30-39 = 107 mL/min/1.73 sq.m. Ages 40-49 = 99 mL/min/1.73 sq.m. Ages 50-59 = 93 mL/min/1.73 sq.m. Ages 60-69 = 85 mL/min/1.73 sq.m. Ages 70+ = 75 mL/min/1.73 sq.m.Chronic Kidney Disease: Less than 60 mL/min/1.73 square metersEnd Stage Renal Disease: Less than 15 mL/min/1.73 square meters Performed By: #### Juice Martinez, ANEU, BMP, CBC, GFR, ADIFF ####[address] [place], [place] [address] .NEUABSon 03-11-2023 Neutrophil, Absolute 5.9 10 3/mcL Normal 2.9-6.2 [facility] ([place]) Comment on above: Performed By: #### Juice Martinez, ANEU, BMP, CBC, GFR, ADIFF ####Johny [address] [place], [place] [address] BMPon 03-11-2023 BUN/Creatinine Ratio 6 ratio Low 7-27 [facility] ([place]) Comment on above: Performed By: #### Juice Martinez, ANEU, BMP, CBC, GFR, ADIFF ####[address] [place], [place] [address] Calcium [Mass/Vol] 9.0 mg/dL Normal 8.4-10.2 Replaced by [facility] ([place]) Comment on above: Performed By: #### M G, ANEU, BMP, CBC, GFR, ADIFF ####Johny [address] [place], [place] [address] Chloride [Moles/Vol] 105 mmol/L Normal 98-107 [facility] ([place]) Comment on above: Performed By: #### M G, ANEU, BMP, CBC, GFR, ADIFF ####Johny [address] [place], [place] [address] CO2 [Moles/Vol] 24 mmol/L Normal 22-29 [facility] ([place]) Comment on above: Performed By: #### Juice G, ANEU, BMP, CBC, GFR, ADIFF ####Johny [address] [place], [place] [address] Creatinine [Mass/Vol] 1.31 mg/dL High 0.55-1.02 [facility] ([place]) Comment on above: Performed By: #### Juice Martinez, ANEU, BMP, CBC, GFR, ADIFF ####[address] [place], [place] [address] Electrolyte Balance 10.0 mEq/L Normal 4.0-15.0 [facility] ([place]) Comment on above: Performed By: #### Juice G, ANEU, BMP, CBC, GFR, ADIFF ####[address] [place], [place] [address] Glucose [Mass/Vol] 138 mg/dL High 70-105 Replaced by [facility] ([place]) Comment on above: Performed By: #### M G, ANEU, BMP, CBC, GFR, ADIFF ####[address] [place], [place] [address] Potassium [Moles/Vol] 4.4 mmol/L Normal 3.5-5.1 [facility] ([place]) Comment on above: Performed By: #### M G, ANEU, BMP, CBC, GFR, ADIFF ####Johny [address] [place], [place] [address] Sodium [Moles/Vol] 139 mmol/L Normal 136-145 Replaced by [facility] ([place]) Comment on above: Performed By: #### M G, ANEU, BMP, CBC, GFR, ADIFF ####[address] [place], [place] [address] Urea nitrogen [Mass/Vol] 8 mg/dL Normal 7-18 [facility] ([place]) Comment on above: Performed By: #### M G, ANEU, BMP, CBC, GFR, ADIFF ####[address] [place], [place] [address] CBCon 03-11-2023 Erythrocyte distribution width (RBC) [Ratio] 16.0 % High 11.5-14.5 [facility] ([place]) Comment on above: Performed By: #### M Michelle, ANEU, BMP, CBC, GFR, ADIFF ####Johny [address] [place], [place] [address] Hematocrit (Bld) [Volume fraction] 29.0 % Low 37.0-47.0 [facility] ([place]) Comment on above: Performed By: #### M G, ANEU, BMP, CBC, GFR, ADIFF ####[address] [place], [place] [address] Hgb 9.6 G/dL Low 12.0-16.0 [facility] ([place]) Comment on above: Performed By: #### M G, ANEU, BMP, CBC, GFR, ADIFF ####[address] [place], [place] [address] MCH (RBC) [Entitic mass] 33.4 pg High 27.0-31.2 [facility] ([place]) Comment on above: Performed By: #### M G, ANEU, BMP, CBC, GFR, ADIFF ####[address] [place], [place] [address] MCHC 33.0 G/dL Normal 33.0-37.0 [facility] ([place]) Comment on above: Performed By: #### M G, ANEU, BMP, CBC, GFR, ADIFF ####Johny [address] [place], [place] [address] MCV (RBC) [Entitic vol] 101.2 fL High 80.0-94.0 [facility] ([place]) Comment on above: Performed By: #### Juice Martinez, ANEU, BMP, CBC, GFR, ADIFF ####[address] [place], [place] [address] Platelet 322 10 3/mcL Normal 130-400 [facility] ([place]) Comment on above: Performed By: #### Juice Martinez, ANEU, BMP, CBC, GFR, ADIFF ####[address] [place], [place] [address] Platelet mean volume (Bld) [Entitic vol] 8.0 fL Normal 7.4-10.4 [facility] ([place]) Comment on above: Performed By: #### Juice Martinez, ANEU, BMP, CBC, GFR, ADIFF ####[address] [place], [place] [address] RBC 2.86 10 6/mcL Low 4.20-5.40 [facility] ([place]) Comment on above: Performed By: #### Juice Martinez, ANEU, BMP, CBC, GFR, ADIFF ####Johny [address] [place], [place] [address] WBC 8.6 10 3/mcL Normal 4.6-10.8 [facility] ([place]) Comment on above: Performed By: #### Juice Martinez, ANEU, BMP, CBC, GFR, ADIFF ####Johny [address] [place], [place] [address] LABORATORYOrdered By: SYSTEM SYSTEM on 03-11-2023 Basophil, Absolute 0.1 103/mcL Normal 0.0 - 0.2 10^3/mcL AO Workflow SS Basophils/100 WBC (Bld) 0.8 % Normal 0.0 - 2.5 % AO Workflow SS Calcium [Mass/Vol] 9.0 mg/dL Normal 8.4 - 10. 2 mg/dL AO ADM SS Chloride [Moles/Vol] 105 mmol/L Normal 98 - 10 7 mmol/L AO ADM SS CO2 [Moles/Vol] 24 mmol/L Normal 22 - 29 mmol/L AO ADM SS Creatinine [Mass/Vol] 1.31 mg/dL High 0.55 - 1.02 mg/dL AO ADM SS Electrolyte Balance 10.0 mEq/L Normal 4.0 - 15 .0 mEq/L AO ADM SS Eosinophil, Absolute 0.6 103/mcL High 0.0 - 0 .4 10^3/mcL AO Workflow SS Eosinophils/100 WBC (Bld) 6.9 % Normal 0.0 - 7.0 % AO Workflow SS Erythrocyte distribution width (RBC) [Ratio] 16.0 % High 11.5 - 14.5 % AO Workflow SS GFR/1.73 sq M.predicted among blacks MDRD (S/P/Bld) [Vol rate/Area] 52 ml/min/1.73sqm Invalid Interpretation Code AO Chemistry S Comment on above: Interpretive Data: GFR Population mean for , Non- Americans Ages 20-29 = 116 mL/min/1.73 sq.m. Ages 30-39 = 107 mL/min/1.73 sq.m. Ages 40-49 = 99 mL/min/1.73 sq.m. Ages 50-59 = 93 mL/min/1.73 sq.m. Ages 60-69 = 85 mL/min/1.73 sq.m. Ages 70+ = 75 mL/min/1.73 sq.m. Chronic Kidney Disease: Less than 60 mL/min/1.73 square meters End Stage Renal Disease: Less than 15 mL/min/1.73 square meters GFR/1.73 sq M.predicted among non-blacks MDRD (S/P/Bld) [Vol rate/Area] 43 ml/min/1.73sqm Invalid Interpretation Code AO Chemistry S Comment on above: Interpretive Data: GFR Population mean for , Non- Americans Ages 20-29 = 116 mL/min/1.73 sq.m. Ages 30-39 = 107 mL/min/1.73 sq.m. Ages 40-49 = 99 mL/min/1.73 sq.m. Ages 50-59 = 93 mL/min/1.73 sq.m. Ages 60-69 = 85 mL/min/1.73 sq.m. Ages 70+ = 75 mL/min/1.73 sq.m. Chronic Kidney Disease: Less than 60 mL/min/1.73 square meters End Stage Renal Disease: Less than 15 mL/min/1.73 square meters Glucose [Mass/Vol] 138 mg/dL High 70 - 105 mg/dL AO ADM SS Hematocrit (Bld) [Volume fraction] 29.0 % Low 37.0 - 47.0 % AO Workflow SS Hemoglobin (Bld) [Mass/Vol] 9.6 G/dL Low 12.0 - 16.0 G/dL AO Workflow SS Lymphocyte, Absolute 1.3 103/mcL Normal 0.8 - 3 .9 10^3/mcL AO Workflow SS Lymphocytes/100 WBC (Bld) 15.2 % Normal 10.0 - 50.0 % AO Workflow SS Magnesium [Mass/Vol] 2.0 mg/dL Normal 1.8 - 2 .4 mg/dL AO ADM SS MCH (RBC) [Entitic mass] 33.4 pg High 27.0 - 31.2 pg AO Workflow SS MCHC 33.0 G/dL Normal 33.0 - 37.0 G/dL AO Workflow SS MCV (RBC) [Entitic vol] 101.2 fL High 80.0 - 94.0 fL AO Workflow SS Monocyte, Absolute 0.7 103/mcL Normal 0.2 - 1.0 10^3/mcL AO Workflow SS Monocytes/100 WBC (Bld) 8.6 % Normal 1.7 - 13.0 % AO Workflow SS Neutrophil, Absolute 5.9 103/mcL Normal 2.9 - 6 .2 10^3/mcL AO Workflow SS Neutrophils/100 WBC (Bld) 68.5 % Normal 37.0 - 80.0 % AO Workflow SS Platelet mean volume (Bld) [Entitic vol] 8.0 fL Normal 7.4 - 10.4 fL AO Workflow SS Platelets (Bld) [#/Vol] 322 103/mcL Normal 130 - 400 10^3/mcL AO Workflow SS Potassium [Moles/Vol] 4.4 mmol/L Normal 3.5 - 5.1 mmol/L AO ADM SS RBC (Bld) [#/Vol] 2.86 106/mcL Low 4.20 - 5.4 0 10^6/mcL AO Workflow SS Sodium [Moles/Vol] 139 mmol/L Normal 136 - 145 mmol/L AO ADM SS Urea nitrogen [Mass/Vol] 8 mg/dL Normal 7 - 18 mg/dL AO ADM SS Urea nitrogen/Creatinine [Mass ratio] 6 ratio Low 7 - 27 ratio AO ADM SS WBC (Bld) [#/Vol] 8.6 103/mcL Normal 4.6 - 10.8 10^3/mcL AO Workflow SS MGon 03-11-2023 Magnesium [Mass/Vol] 2.0 mg/dL Normal 1.8-2.4 [facility] ([place]) Comment on above: Performed By: #### M G, ANEU, BMP, CBC, GFR, ADIFF ####Johny [address] [place], [place] [address] .Auto Diffon 03-10-2023 Basophil, Absolute 0.1 10 3/mcL Normal 0.0-0.2 [facility] ([place]) Comment on above: Performed By: #### Juice G, ANEU, GFR, BMP, ADIFF, CBC ####Johny [address] [place], [place] [address] Basophils/100 WBC (Bld) 0.7 % Normal 0.0-2.5 [facility] ([place]) Comment on above: Performed By: #### Juice G, ANEU, GFR, BMP, ADIFF, CBC ####Johny [address] [place], [place] [address] Eosinophil, Absolute 0.5 10 3/mcL High 0.0-0.4 [facility] [place]) Comment on above: Performed By: #### M G, ANEU, GFR, BMP, ADIFF, CBC ####Johny [address] [place], [place] [address] Eosinophils/100 WBC (Bld) 5.1 % Normal 0.0-7.0 [facility] ([place]) Comment on above: Performed By: #### Juice G, ANEU, GFR, BMP, ADIFF, CBC ####Johny [address] [place], [place] [address] Lymphocyte, Absolute 1.6 10 3/mcL Normal 0.8-3.9 [facility] [place]) Comment on above: Performed By: #### Juice G, ANEU, GFR, BMP, ADIFF, CBC ####Johny [address] [place], [place] [address] Lymphocytes/100 WBC (Bld) 16.2 % Normal 10.0-50.0 [facility] ([place]) Comment on above: Performed By: #### M G, ANEU, GFR, BMP, ADIFF, CBC ####[address] [place], [place] [address] Monocyte, Absolute 1.0 10 3/mcL Normal 0.2-1.0 [facility] ([place]) Comment on above: Performed By: #### M G, ANEU, GFR, BMP, ADIFF, CBC ####[address] [place], [place] [address] Monocytes/100 WBC (Bld) 10.6 % Normal 1.7-13.0 [facility] ([place]) Comment on above: Performed By: #### M G, ANEU, GFR, BMP, ADIFF, CBC ####[address] [place], [place] [address] Neutrophils/100 WBC (Bld) 67.4 % Normal 37.0-80.0 [facility] ([place]) Comment on above: Performed By: #### M G, ANEU, GFR, BMP, ADIFF, CBC ####[address] [place], [place] [address] .GFRon 03-10-2023 GFR 63 ml/min/1.73sqm Normal [facility] ([place]) Comment on above: Result Comment: GFR Population mean for , Non- Americans Ages 20-29 = 116 mL/min/1.73 sq.m. Ages 30-39 = 107 mL/min/1.73 sq.m. Ages 40-49 = 99 mL/min/1.73 sq.m. Ages 50-59 = 93 mL/min/1.73 sq.m. Ages 60-69 = 85 mL/min/1.73 sq.m. Ages 70+ = 75 mL/min/1.73 sq.m.Chronic Kidney Disease: Less than 60 mL/min/1.73 square metersEnd Stage Renal Disease: Less than 15 mL/min/1.73 square meters Performed By: #### M G, ANEU, GFR, BMP, ADIFF, CBC ####[address] [place], [place] [address] GFR Non- 52 ml/min/1.73sqm Normal [facility] ([place]) Comment on above: Result Comment: GFR Population mean for , Non- Americans Ages 20-29 = 116 mL/min/1.73 sq.m. Ages 30-39 = 107 mL/min/1.73 sq.m. Ages 40-49 = 99 mL/min/1.73 sq.m. Ages 50-59 = 93 mL/min/1.73 sq.m. Ages 60-69 = 85 mL/min/1.73 sq.m. Ages 70+ = 75 mL/min/1.73 sq.m.Chronic Kidney Disease: Less than 60 mL/min/1.73 square metersEnd Stage Renal Disease: Less than 15 mL/min/1.73 square meters Performed By: #### Juice G, ANEU, GFR, BMP, ADIFF, CBC ####[address] [place], [place] [address] .NEUABSon 03-10-2023 Neutrophil, Absolute 6.7 10 3/mcL High 2.9-6.2 [facility] [place] Comment on above: Performed By: #### Juice Martinez, ANEU, GFR, BMP, ADIFF, CBC ####[address] [place], [place] [address] BMPon 03-10-2023 BUN/Creatinine Ratio 5 ratio Low 7-27 [facility] ([place]) Comment on above: Performed By: #### Juice Martinez, ANEU, GFR, BMP, ADIFF, CBC ####[address] [place], [place] [address] Calcium [Mass/Vol] 9.1 mg/dL Normal 8.4-10.2 Replaced by [facility] ([place]) Comment on above: Performed By: #### Juice Martinez, ANEU, GFR, BMP, ADIFF, CBC ####[address] [place], [place] [address] Chloride [Moles/Vol] 104 mmol/L Normal 98-107 [facility] ([place]) Comment on above: Performed By: #### M G, ANEU, GFR, BMP, ADIFF, CBC ####[address] [place], [place] [address] CO2 [Moles/Vol] 26 mmol/L Normal 22-29 [facility] ([place]) Comment on above: Performed By: #### M G, ANEU, GFR, BMP, ADIFF, CBC ####[address] [place], [place] [address] Creatinine [Mass/Vol] 1.10 mg/dL High 0.55-1.02 [facility] ([place]) Comment on above: Performed By: #### M G, ANEU, GFR, BMP, ADIFF, CBC ####[address] [place], [place] [address] Electrolyte Balance 8.0 mEq/L Normal 4.0-15.0 [facility]ly [facility] ([place]) Comment on above: Performed By: #### M G, ANEU, GFR, BMP, ADIFF, CBC ####[address] [place], [place] [address] Glucose [Mass/Vol] 128 mg/dL High 70-105 Replaced by [facility] ([place]) Comment on above: Performed By: #### M G, ANEU, GFR, BMP, ADIFF, CBC ####[address] [place], [place] [address] Potassium [Moles/Vol] 3.9 mmol/L Normal 3.5-5.1 [facility] ([place]) Comment on above: Performed By: #### M G, ANEU, GFR, BMP, ADIFF, CBC ####[address] [place], [place] [address] Sodium [Moles/Vol] 138 mmol/L Normal 136-145 Replaced by [facility] ([place]) Comment on above: Performed By: #### M G, ANEU, GFR, BMP, ADIFF, CBC ####[address] [place], [place] [address] Urea nitrogen [Mass/Vol] 6 mg/dL Low 7-18 [facility] ([place]) Comment on above: Performed By: #### M G, ANEU, GFR, BMP, ADIFF, CBC ####[address] [place], [place] [address] CBCon 03-10-2023 Erythrocyte distribution width (RBC) [Ratio] 15.8 % High 11.5-14.5 [facility] ([place]) Comment on above: Performed By: #### M Michelle, ANEU, GFR, BMP, ADIFF, CBC ####[address] [place], [place] [address] Hematocrit (Bld) [Volume fraction] 30.7 % Low 37.0-47.0 [facility] ([place]) Comment on above: Performed By: #### M G, ANEU, GFR, BMP, ADIFF, CBC ####[address] [place], [place] [address] Hgb 10.2 G/dL Low 12.0-16.0 [facility] ([place]) Comment on above: Performed By: #### M Michelle, ANEU, GFR, BMP, ADIFF, CBC ####[address] [place], [place] [address] MCH (RBC) [Entitic mass] 33.1 pg High 27.0-31.2 [facility] ([place]) Comment on above: Performed By: #### M Michelle, ANEU, GFR, BMP, ADIFF, CBC ####[address] [place], [place] [address] MCHC 33.1 G/dL Normal 33.0-37.0 [facility] ([place]) Comment on above: Performed By: #### M Michelle, ANEU, GFR, BMP, ADIFF, CBC ####[address] [place], [place] [address] MCV (RBC) [Entitic vol] 99.9 fL High 80.0-94.0 [facility] ([place]) Comment on above: Performed By: #### M G, ANEU, GFR, BMP, ADIFF, CBC ####[address] [place], [place] [address] Platelet 328 10 3/mcL Normal 130-400 [facility] ([place]) Comment on above: Performed By: #### M G, ANEU, GFR, BMP, ADIFF, CBC ####[address] [place], [place] [address] Platelet mean volume (Bld) [Entitic vol] 7.9 fL Normal 7.4-10.4 [facility] ([place]) Comment on above: Performed By: #### M G, ANEU, GFR, BMP, ADIFF, CBC ####[address] [place], [place] [address] RBC 3.07 10 6/mcL Low 4.20-5.40 [facility] ([place]) Comment on above: Performed By: #### M G, ANEU, GFR, BMP, ADIFF, CBC ####[address] [place], [place] [address] WBC 9.9 10 3/mcL Normal 4.6-10.8 [facility] ([place]) Comment on above: Performed By: #### M G, ANEU, GFR, BMP, ADIFF, CBC ####[address] [place], [place] [address] LABORATORYOrdered By: SYSTEM SYSTEM on 03-10-2023 Basophil, Absolute 0.1 103/mcL Normal 0.0 - 0.2 10^3/mcL AO Workflow SS Basophils/100 WBC (Bld) 0.7 % Normal 0.0 - 2.5 % AO Workflow SS Calcium [Mass/Vol] 9.1 mg/dL Normal 8.4 - 10. 2 mg/dL AO ADM SS Chloride [Moles/Vol] 104 mmol/L Normal 98 - 10 7 mmol/L AO ADM SS CO2 [Moles/Vol] 26 mmol/L Normal 22 - 29 mmol/L AO ADM SS Creatinine [Mass/Vol] 1.10 mg/dL High 0.55 - 1.02 mg/dL AO ADM SS Electrolyte Balance 8.0 mEq/L Normal 4.0 - 15 .0 mEq/L AO ADM SS Eosinophil, Absolute 0.5 103/mcL High 0.0 - 0 .4 10^3/mcL AO Workflow SS Eosinophils/100 WBC (Bld) 5.1 % Normal 0.0 - 7.0 % AO Workflow SS Erythrocyte distribution width (RBC) [Ratio] 15.8 % High 11.5 - 14.5 % AO Workflow SS GFR/1.73 sq M.predicted among blacks MDRD (S/P/Bld) [Vol rate/Area] 63 ml/min/1.73sqm Invalid Interpretation Code AO Chemistry S Comment on above: Interpretive Data: GFR Population mean for , Non- Americans Ages 20-29 = 116 mL/min/1.73 sq.m. Ages 30-39 = 107 mL/min/1.73 sq.m. Ages 40-49 = 99 mL/min/1.73 sq.m. Ages 50-59 = 93 mL/min/1.73 sq.m. Ages 60-69 = 85 mL/min/1.73 sq.m. Ages 70+ = 75 mL/min/1.73 sq.m. Chronic Kidney Disease: Less than 60 mL/min/1.73 square meters End Stage Renal Disease: Less than 15 mL/min/1.73 square meters GFR/1.73 sq M.predicted among non-blacks MDRD (S/P/Bld) [Vol rate/Area] 52 ml/min/1.73sqm Invalid Interpretation Code AO Chemistry S Comment on above: Interpretive Data: GFR Population mean for , Non- Americans Ages 20-29 = 116 mL/min/1.73 sq.m. Ages 30-39 = 107 mL/min/1.73 sq.m. Ages 40-49 = 99 mL/min/1.73 sq.m. Ages 50-59 = 93 mL/min/1.73 sq.m. Ages 60-69 = 85 mL/min/1.73 sq.m. Ages 70+ = 75 mL/min/1.73 sq.m. Chronic Kidney Disease: Less than 60 mL/min/1.73 square meters End Stage Renal Disease: Less than 15 mL/min/1.73 square meters Glucose [Mass/Vol] 128 mg/dL High 70 - 105 mg/dL AO ADM SS Hematocrit (Bld) [Volume fraction] 30.7 % Low 37.0 - 47.0 % AO Workflow SS Hemoglobin (Bld) [Mass/Vol] 10.2 G/dL Low 12.0 - 16.0 G/dL AO Workflow SS Lymphocyte, Absolute 1.6 103/mcL Normal 0.8 - 3 .9 10^3/mcL AO Workflow SS Lymphocytes/100 WBC (Bld) 16.2 % Normal 10.0 - 50.0 % AO Workflow SS Magnesium [Mass/Vol] 2.1 mg/dL Normal 1.8 - 2 .4 mg/dL AO ADM SS MCH (RBC) [Entitic mass] 33.1 pg High 27.0 - 31.2 pg AO Workflow SS MCHC 33.1 G/dL Normal 33.0 - 37.0 G/dL AO Workflow SS MCV (RBC) [Entitic vol] 99.9 fL High 80.0 - 94.0 fL AO Workflow SS Monocyte, Absolute 1.0 103/mcL Normal 0.2 - 1.0 10^3/mcL AO Workflow SS Monocytes/100 WBC (Bld) 10.6 % Normal 1.7 - 13.0 % AO Workflow SS Neutrophil, Absolute 6.7 103/mcL High 2.9 - 6 .2 10^3/mcL AO Workflow SS Neutrophils/100 WBC (Bld) 67.4 % Normal 37.0 - 80.0 % AO Workflow SS Platelet mean volume (Bld) [Entitic vol] 7.9 fL Normal 7.4 - 10.4 fL AO Workflow SS Platelets (Bld) [#/Vol] 328 103/mcL Normal 130 - 400 10^3/mcL AO Workflow SS Potassium [Moles/Vol] 3.9 mmol/L Normal 3.5 - 5.1 mmol/L AO ADM SS RBC (Bld) [#/Vol] 3.07 106/mcL Low 4.20 - 5.4 0 10^6/mcL AO Workflow SS Sodium [Moles/Vol] 138 mmol/L Normal 136 - 145 mmol/L AO ADM SS Urea nitrogen [Mass/Vol] 6 mg/dL Low 7 - 18 mg/dL AO ADM SS Urea nitrogen/Creatinine [Mass ratio] 5 ratio Low 7 - 27 ratio AO ADM SS WBC (Bld) [#/Vol] 9.9 103/mcL Normal 4.6 - 10.8 10^3/mcL AO Workflow SS MGon 03-10-2023 Magnesium [Mass/Vol] 2.1 mg/dL Normal 1.8-2.4 [facility] ([place]) Comment on above: Performed By: #### M G, ANEU, GFR, BMP, ADIFF, CBC ####Johny [address] [place] [id number] .Auto Diffon 03-09-2023 Basophil, Absolute 0.1 10 3/mcL Normal 0.0-0.2 [facility] ([place]) Comment on above: Performed By: #### C BC, ANEU, ADLALA, MDW, BMP, GFR ####[address] [place], [place] [address] Basophils/100 WBC (Bld) 1.0 % Normal 0.0-2.5 [facility] ([place]) Comment on above: Performed By: #### C BC, ANEU, ADIFF, MDW, BMP, GFR ####[address] [place], [place] [address] Eosinophil, Absolute 0.7 10 3/mcL High 0.0-0.4 [facility] ([place]) Comment on above: Performed By: #### C BC, ANEU, ADIFF, MDW, BMP, GFR ####[address] [place], [place] [address] Eosinophils/100 WBC (Bld) 6.3 % Normal 0.0-7.0 [facility] ([place]) Comment on above: Performed By: #### C BC, ANEU, ADLALA, MDW, BMP, GFR ####[address] [place], [place] [address] Lymphocyte, Absolute 1.7 10 3/mcL Normal 0.8-3.9 [facility] ([place]) Comment on above: Performed By: #### C BC, ANEU, ADIFF, MDW, BMP, GFR ####[address] [place], [place] [address] Lymphocytes/100 WBC (Bld) 15.1 % Normal 10.0-50.0 [facility] ([place]) Comment on above: Performed By: #### C BC, ANEU, ADLALA, MDW, BMP, GFR ####[address] [place], [place] [address] Monocyte, Absolute 1.1 10 3/mcL High 0.2-1.0 [facility] ([place]) Comment on above: Performed By: #### C BC, ANEU, ADIFF, MDW, BMP, GFR ####[address] [place], [place] [address] Monocytes/100 WBC (Bld) 9.1 % Normal 1.7-13.0 [facility] ([place]) Comment on above: Performed By: #### C HARSHAD CHAIDEZ ADIFF, MDW, BMP, GFR ####[address] [place], [place] [address] Neutrophils/100 WBC (Bld) 68.5 % Normal 37.0-80.0 [facility] ([place]) Comment on above: Performed By: #### C DM, EMANUEL PATRICIA MDW, BMP, GFR ####[address] [place], [place] [address] .GFRon 03-09-2023 GFR 63 ml/min/1.73sqm Normal [facility] ([place]) Comment on above: Result Comment: GFR Population mean for , Non- Americans Ages 20-29 = 116 mL/min/1.73 sq.m. Ages 30-39 = 107 mL/min/1.73 sq.m. Ages 40-49 = 99 mL/min/1.73 sq.m. Ages 50-59 = 93 mL/min/1.73 sq.m. Ages 60-69 = 85 mL/min/1.73 sq.m. Ages 70+ = 75 mL/min/1.73 sq.m.Chronic Kidney Disease: Less than 60 mL/min/1.73 square metersEnd Stage Renal Disease: Less than 15 mL/min/1.73 square meters Performed By: #### C DM, EMANUEL PATRICIA MDW, BMP, GFR ####[address] [place], [place] [address] GFR Non- 52 ml/min/1.73sqm Normal [facility] ([place]) Comment on above: Result Comment: GFR Population mean for , Non- Americans Ages 20-29 = 116 mL/min/1.73 sq.m. Ages 30-39 = 107 mL/min/1.73 sq.m. Ages 40-49 = 99 mL/min/1.73 sq.m. Ages 50-59 = 93 mL/min/1.73 sq.m. Ages 60-69 = 85 mL/min/1.73 sq.m. Ages 70+ = 75 mL/min/1.73 sq.m.Chronic Kidney Disease: Less than 60 mL/min/1.73 square metersEnd Stage Renal Disease: Less than 15 mL/min/1.73 square meters Performed By: #### C DM, EMANUEL PATRICIA, JUAN CARLOS, BMP, GFR ####[address] [place], [place] [address] .MDWon 03-09-2023 Monocyte Distribution Width 23.01 High 0.00-20.00 [facility] ([place]) Comment on above: Result Comment: For adults in ED, MDW>20.0 may be associated with a higher risk of sepsis during the first 12hrs of hospital admission Performed By: #### C HARSHAD CHAIDEZ ADIFF, MDW, BMP, GFR ####[address] [place], [place] [address] .NEUABSon 03-09-2023 Neutrophil, Absolute 7.9 10 3/mcL High 2.9-6.2 [facility] [place]) Comment on above: Performed By: #### C HARSHAD CHAIDEZ ADIFF, MDW, BMP, GFR ####[address]y [address] [place], [place] [address] BMPon 03-09-2023 BUN/Creatinine Ratio 5 ratio Low 7-27 [facility] ([place]) Comment on above: Performed By: #### C HARSHAD CHAIDEZ ADIFF, MDW, BMP, GFR ####[address] [place], [place] [address] Calcium [Mass/Vol] 9.6 mg/dL Normal 8.4-10.2 Replaced by [facility] ([place]) Comment on above: Performed By: #### C HARSHAD CHAIDEZ ADIFF, MDW, BMP, GFR ####[address] [place], [place] [address] Chloride [Moles/Vol] 100 mmol/L Normal 98-107 [facility] ([place]) Comment on above: Performed By: #### C HARSHAD CHAIDEZ ADIFF, MDW, BMP, GFR ####[address] [place], [place] [address] CO2 [Moles/Vol] 28 mmol/L Normal 22-29 [facility] ([place]) Comment on above: Performed By: #### C BC, EMANUEL PATRICIA MDW, BMP, GFR ####[address] [place], [place] [address] Creatinine [Mass/Vol] 1.10 mg/dL High 0.55-1.02 [facility] ([place]) Comment on above: Performed By: #### C DM, EMANUEL PATRICIA MDW, BMP, GFR ####[address] [place], [place] [address] Electrolyte Balance 9.0 mEq/L Normal 4.0-15.0 [facility] ([place]) Comment on above: Performed By: #### C DM, EMANUEL PATRICIA MDW, BMP, GFR ####[address] [place], [place] [address] Glucose [Mass/Vol] 109 mg/dL High 70-105 Replaced by [facility] ([place]) Comment on above: Performed By: #### C DM, EMANUEL PATRICIA MDW, BMP, GFR ####[address] [place], [place] [address] Potassium [Moles/Vol] 3.9 mmol/L Normal 3.5-5.1 [facility] ([place]) Comment on above: Performed By: #### C DM, EMANUEL PATRICIA MDW, BMP, GFR ####[address] [place], [place] [address] Sodium [Moles/Vol] 137 mmol/L Normal 136-145 Replaced by [facility] ([place]) Comment on above: Performed By: #### C DM, EMANUEL PATRICIA MDW, BMP, GFR ####[address] [place], [place] [address] Urea nitrogen [Mass/Vol] 6 mg/dL Low 7-18 [facility] ([place]) Comment on above: Performed By: #### C BC, EMANUEL PATRICIA MDW, BMP, GFR ####[address] [place], [place] [address] CBCon 03-09-2023 Erythrocyte distribution width (RBC) [Ratio] 15.8 % High 11.5-14.5 [facility] ([place]) Comment on above: Performed By: #### C HARSHAD CHAIDEZ ADIFF, MDW, BMP, GFR ####[address] [place], [place] [address] Hematocrit (Bld) [Volume fraction] 33.7 % Low 37.0-47.0 [facility] ([place]) Comment on above: Performed By: #### C HARSHAD CHAIDEZ ADIFF, MDW, BMP, GFR ####[address] [place], [place] [address] Hgb 11.2 G/dL Low 12.0-16.0 [facility] ([place]) Comment on above: Performed By: #### C HARSHAD CHAIDEZ ADIFF, MDW, BMP, GFR ####[address] [place], [place] [address] MCH (RBC) [Entitic mass] 33.2 pg High 27.0-31.2 [facility] ([place]) Comment on above: Performed By: #### C HARSHAD CHAIDEZ ADIFF, MDW, BMP, GFR ####[address] [place], [place] [address] MCHC 33.2 G/dL Normal 33.0-37.0 [facility] ([place]) Comment on above: Performed By: #### C HARSHAD CHAIDEZ ADIFF, MDW, BMP, GFR ####[address] [place], [place] [address] MCV (RBC) [Entitic vol] 100.1 fL High 80.0-94.0 [facility] ([place]) Comment on above: Performed By: #### C HARSHAD CHAIDEZ ADIFF, MDW, BMP, GFR ####[address] [place], [place] [address] Platelet 432 10 3/mcL High 130-400 [facility] ([place]) Comment on above: Performed By: #### C BC, EMNAUEL PATRICIA MDW, BMP, GFR ####[address] [place], [place] [address] Platelet mean volume (Bld) [Entitic vol] 7.6 fL Normal 7.4-10.4 [facility] ([place]) Comment on above: Performed By: #### C DM, EMANUEL PATRICIA MDW, BMP, GFR ####Johny [address] [place], [place] [address] RBC 3.37 10 6/mcL Low 4.20-5.40 [facility] ([place]) Comment on above: Performed By: #### C DM, EMANUEL PATRICIA MDW, BMP, GFR ####[address] [place], [place] [address] WBC 11.6 10 3/mcL High 4.6-10.8 [facility] ([place]) Comment on above: Performed By: #### C DM, EMANUEL PATRICIA MDW, BMP, GFR ####[address] [place], [place] [address] LABORATORYOrdered By: SYSTEM SYSTEM on 03-09-2023 Basophil, Absolute 0.1 103/mcL Normal 0.0 - 0.2 10^3/mcL AO Workflow SS Basophils/100 WBC (Bld) 1.0 % Normal 0.0 - 2.5 % AO Workflow SS Calcium [Mass/Vol] 9.6 mg/dL Normal 8.4 - 10. 2 mg/dL AO ADM SS Chloride [Moles/Vol] 100 mmol/L Normal 98 - 10 7 mmol/L AO ADM SS CO2 [Moles/Vol] 28 mmol/L Normal 22 - 29 mmol/L AO ADM SS Creatinine [Mass/Vol] 1.10 mg/dL High 0.55 - 1.02 mg/dL AO ADM SS Electrolyte Balance 9.0 mEq/L Normal 4.0 - 15 .0 mEq/L AO ADM SS Eosinophil, Absolute 0.7 103/mcL High 0.0 - 0 .4 10^3/mcL AO Workflow SS Eosinophils/100 WBC (Bld) 6.3 % Normal 0.0 - 7.0 % AO Workflow SS Erythrocyte distribution width (RBC) [Ratio] 15.8 % High 11.5 - 14.5 % AO Workflow SS GFR/1.73 sq M.predicted among blacks MDRD (S/P/Bld) [Vol rate/Area] 63 ml/min/1.73sqm Invalid Interpretation Code AO Chemistry S Comment on above: Interpretive Data: GFR Population mean for , Non- Americans Ages 20-29 = 116 mL/min/1.73 sq.m. Ages 30-39 = 107 mL/min/1.73 sq.m. Ages 40-49 = 99 mL/min/1.73 sq.m. Ages 50-59 = 93 mL/min/1.73 sq.m. Ages 60-69 = 85 mL/min/1.73 sq.m. Ages 70+ = 75 mL/min/1.73 sq.m. Chronic Kidney Disease: Less than 60 mL/min/1.73 square meters End Stage Renal Disease: Less than 15 mL/min/1.73 square meters GFR/1.73 sq M.predicted among non-blacks MDRD (S/P/Bld) [Vol rate/Area] 52 ml/min/1.73sqm Invalid Interpretation Code AO Chemistry S Comment on above: Interpretive Data: GFR Population mean for , Non- Americans Ages 20-29 = 116 mL/min/1.73 sq.m. Ages 30-39 = 107 mL/min/1.73 sq.m. Ages 40-49 = 99 mL/min/1.73 sq.m. Ages 50-59 = 93 mL/min/1.73 sq.m. Ages 60-69 = 85 mL/min/1.73 sq.m. Ages 70+ = 75 mL/min/1.73 sq.m. Chronic Kidney Disease: Less than 60 mL/min/1.73 square meters End Stage Renal Disease: Less than 15 mL/min/1.73 square meters Glucose [Mass/Vol] 109 mg/dL High 70 - 105 mg/dL AO ADM SS Hematocrit (Bld) [Volume fraction] 33.7 % Low 37.0 - 47.0 % AO Workflow SS Hemoglobin (Bld) [Mass/Vol] 11.2 G/dL Low 12.0 - 16.0 G/dL AO Workflow SS Lymphocyte, Absolute 1.7 103/mcL Normal 0.8 - 3 .9 10^3/mcL AO Workflow SS Lymphocytes/100 WBC (Bld) 15.1 % Normal 10.0 - 50.0 % AO Workflow SS MCH (RBC) [Entitic mass] 33.2 pg High 27.0 - 31.2 pg AO Workflow SS MCHC 33.2 G/dL Normal 33.0 - 37.0 G/dL AO Workflow SS MCV (RBC) [Entitic vol] 100.1 fL High 80.0 - 94.0 fL AO Workflow SS Monocyte distribution width Auto (Bld) [Entitic vol] 23.01 1 High 0.00 - 20.00 AO Workflow SS Comment on above: Result Comment: For adults in ED, MDW>20.0 may be associated with a higher risk of sepsis during the first 12hrs of hospital admission Monocyte, Absolute 1.1 103/mcL High 0.2 - 1.0 10^3/mcL AO Workflow SS Monocytes/100 WBC (Bld) 9.1 % Normal 1.7 - 13.0 % AO Workflow SS Neutrophil, Absolute 7.9 103/mcL High 2.9 - 6 .2 10^3/mcL AO Workflow SS Neutrophils/100 WBC (Bld) 68.5 % Normal 37.0 - 80.0 % AO Workflow SS Platelet mean volume (Bld) [Entitic vol] 7.6 fL Normal 7.4 - 10.4 fL AO Workflow SS Platelets (Bld) [#/Vol] 432 103/mcL High 130 - 400 10^3/mcL AO Workflow SS Potassium [Moles/Vol] 3.9 mmol/L Normal 3.5 - 5.1 mmol/L AO ADM SS RBC (Bld) [#/Vol] 3.37 106/mcL Low 4.20 - 5.4 0 10^6/mcL AO Workflow SS Sodium [Moles/Vol] 137 mmol/L Normal 136 - 145 mmol/L AO ADM SS Urea nitrogen [Mass/Vol] 6 mg/dL Low 7 - 18 mg/dL AO ADM SS Urea nitrogen/Creatinine [Mass ratio] 5 ratio Low 7 - 27 ratio AO ADM SS WBC (Bld) [#/Vol] 11.6 103/mcL High 4.6 - 10.8 10^3/mcL AO Workflow SS No Panel Informationon 03-09 Culture Wound Aerobe Culture results pending. [facility] No organisms seen. [facility] Microscopic examination of blood, culture Culture has been received in lab and is no growth to date. Routine cultures are held for 5 days. [facility] XR TIBIA/FIBULA 2 VIEWS RIGH Ton 03-09-2023 XR TIBIA/FIBULA 2 VIEWS RIGHT Normal [facility] ([place]) CNOVon 03-08-2023 CNOV Office Visit (UCWSTR ) KAMALA GRAY ([id number]) 1970 F Date Time Provider Department 03/08/23 2:30 PM WHITLEY HSIEH RUST During your visit today, we recorded the following information about you: Temperature Pulse Respiration Blood pressure 97.9 degrees 102/minute 18/minute 124/86 Weight 131.5 kg Whitley Hsieh, MICAH.WRAPPING CLERK 03/08/2023 2:49 PM Signed Subjective HPI May Isaac is a 52 year old female who presents with an infection on her right lower leg that has been present for 2 weeks. She has taken 2 rounds of cephalexin and it has not gotten any better. Her pain is worse and keeps her up at night. The wound has been draining a large amount of yellow drainage. She has not had a fever. Review of Systems Constitutional: Negative for chills and fever. Respiratory: Negative. Cardiovascular: Negative. Musculoskeletal: See HPI Skin: Negative for itching and rash. See HPI BP 124/86 Pulse 102 Temp 36.6 ?C (97.9 ?F) Resp 18 Wt 131.5 kg (290 lb) LMP (LMP Unknown) SpO2 95% PAST MEDICAL HISTORY Diagnosis Date Asthma with COPD Celiac disease CKD (chronic kidney disease) Diabetes mellitus type 2 (HCC) Gout Hyperlipidemia Hypertension Hypothyroidism Microcytic anemia Obesity, Class III, BMI 40-49.9 (morbid obesity) (HCC) Renal calculi No past surgical history on file. ALLERGIES Hydrochlorothiazide, Naproxen, and Asa [Salicylates] MEDICATIONS magnesium oxide 200 mg magnesium tab Take 1 tablet by mouth daily at bedtime. atogepant (QULIPTA) 30 mg tablet Take by mouth. budesonide-formoterol (SYMBICORT) 160-4.5 mcg/actuation inhaler Inhale 2 Puffs as instructed. fremanezumab-vfrm (AJOVY AUTOINJECTOR) 225 mg/1.5 mL auto-injector Inject 225 mg subcutaneously once every month. Do not shake. nystatin (MYCOSTATIN) powder Apply 1 application to affected area three times daily. TRELEGY ELLIPTA 100-62.5-25 mcg INHALE 1 PUFF DAILY with good oral care levothyroxine (SYNTHROID) 300 mcg tablet Take by mouth. Not taking acetaminophen(TYLENOL 325 MG TAB) progesterone micronized (PROMETRIUM) 200 mg capsule benzonatate (TESSALON PERLES) 100 mg capsule Take 2 capsules by mouth three times daily as needed. (Patient not taking: Reported on 03/08/2023) ondansetron orally disintegrating (ZOFRAN ODT) 4 mg disintegrating tablet Take 1 tablet by mouth every 6 hours as needed for nausea/vomiting. (Patient not taking: Reported on 03/08/2023) guaiFENesin (MUCINEX FAST-MAX CHEST-CONGEST) 100 mg/5 mL syrup Take 20 mL by mouth every 4 hours as needed. (Patient not taking: Reported on 03/08/2023) megestrol (MEGACE) 40 mg tablet Take 40 mg by mouth once daily. (Patient not taking: Reported on 03/08/2023) No family history on file. Social History Tobacco Use Smoking status: Never Smokeless tobacco: Never Substance Use Topics Alcohol use: No Drug use: Never Objective Physical Exam Vitals and nursing note reviewed. Constitutional: General: She is not in acute distress. Appearance: Normal appearance. She is obese. Cardiovascular: Rate and Rhythm: Normal rate. Pulmonary: Effort: Pulmonary effort is normal. Skin: General: Skin is warm and dry. Findings: Erythema present. No rash. Neurological: Mental Status: She is alert. ASSESSMENT/PLAN: 1. Open wound of skin - ICD9: 879.8, ICD10: T14.8XXA - patient referred to ER. Pain is uncontrolled at this point and patient has failed outpatient antibiotic therapy. She is agreeable and will go to [facility]. Report sent to [facility] ER via ER passport. Whitley Hsieh APRN.WRAPPING CLERK Allergies As of Date: 03/08/2023 Noted Allergy Reaction HYDROCHLOROTHIAZIDE 09/28/2019 16 - Unknown NAPROXEN 11/05/2018 11 - Vomiting ASA (SALICYLATES) 12/21/2007 Date Reviewed: 03/08/2023 Reviewed by: Nessa Montes - Fully Assessed Reason for Visit: Derm Problem [33] Cmt: sore on right leg finished 2nd round of cephalexin today Primary Visit Diagnosis:Open wound of skin [T14.8XXA] Prescriptions as of 03/08/2023 - progesterone micronized (PROMETRIUM) 200 mg capsule - magnesium oxide 200 mg magnesium tab Take 1 tablet by mouth daily at bedtime. - atogepant (QULIPTA) 30 mg tablet Take by mouth. - budesonide-formoterol (SYMBICORT) 160-4.5 mcg/actuation inhaler Inhale 2 Puffs as instructed. - fremanezumab-vfrm (AJOVY AUTOINJECTOR) 225 mg/1.5 mL auto-injector Inject 225 mg subcutaneously once every month. Do not shake. - benzonatate (TESSALON PERLES) 100 mg capsule Take 2 capsules by mouth three times daily as needed. - nystatin (MYCOSTATIN) powder Apply 1 application to affected area three times daily. - ondansetron orally disintegrating (ZOFRAN ODT) 4 mg disintegrating tablet Take 1 tablet by mouth every 6 hours as needed for nausea/vomiting. - guaiFENesin (MUCINEX FAST-MAX CHEST-CONGEST) 100 mg/5 mL syrup Take 20 (more content not included)... Normal [facility] .GFRon 03-05-2023 GFR 67 ml/min/1.73sqm Normal [facility] ([place]) Comment on above: Result Comment: GFR Population mean for , Non- Americans Ages 20-29 = 116 mL/min/1.73 sq.m. Ages 30-39 = 107 mL/min/1.73 sq.m. Ages 40-49 = 99 mL/min/1.73 sq.m. Ages 50-59 = 93 mL/min/1.73 sq.m. Ages 60-69 = 85 mL/min/1.73 sq.m. Ages 70+ = 75 mL/min/1.73 sq.m.Chronic Kidney Disease: Less than 60 mL/min/1.73 square metersEnd Stage Renal Disease: Less than 15 mL/min/1.73 square meters Performed By: #### Michelle MARTINEZ, BMP ####[address] [place], [place] [address] GFR Non- 56 ml/min/1.73sqm Normal [facility] ([place]) Comment on above: Result Comment: GFR Population mean for , Non- Americans Ages 20-29 = 116 mL/min/1.73 sq.m. Ages 30-39 = 107 mL/min/1.73 sq.m. Ages 40-49 = 99 mL/min/1.73 sq.m. Ages 50-59 = 93 mL/min/1.73 sq.m. Ages 60-69 = 85 mL/min/1.73 sq.m. Ages 70+ = 75 mL/min/1.73 sq.m.Chronic Kidney Disease: Less than 60 mL/min/1.73 square metersEnd Stage Renal Disease: Less than 15 mL/min/1.73 square meters Performed By: #### Michelle MARTINEZ, BMP ####[address] [place], [place] [address] BMPon 03-05-2023 BUN/Creatinine Ratio 8 ratio Normal 7-27 [facility] ([place]) Comment on above: Order Comment: hemol yzed Performed By: #### Michelle MARTINEZ, BMP ####Johny [address] [place], [place] [address] Calcium [Mass/Vol] 9.8 mg/dL Normal 8.4-10.2 Replaced by [facility] ([place]) Comment on above: Order Comment: hemol yzed Performed By: #### Michelle MARTINEZ, BMP ####[address] [place], [place] [address] Chloride [Moles/Vol] 102 mmol/L Normal 98-107 [facility] ([place]) Comment on above: Order Comment: hemol yzed Performed By: #### Michelle MARTINEZ, BMP ####[address] [place], [place] [address] CO2 [Moles/Vol] 28 mmol/L Normal 22-29 [facility] ([place]) Comment on above: Order Comment: hemol yzed Performed By: #### G , BMP ####[address] [place], [place] [address] Creatinine [Mass/Vol] 1.04 mg/dL High 0.55-1.02 [facility] ([place]) Comment on above: Order Comment: hemol yzed Performed By: #### Michelle MARTINEZ, BMP ####[address] [place], [place] [address] Electrolyte Balance 9.0 mEq/L Normal 4.0-15.0 [facility] ([place]) Comment on above: Order Comment: hemol yzed Performed By: #### Michelle MARTINEZ, BMP ####[address] [place], [place] [address] Glucose [Mass/Vol] 118 mg/dL High 70-105 Replaced by [facility] ([place]) Comment on above: Order Comment: hemol yzed Performed By: #### Michelle MARTINEZ, BMP ####[address] [place], [place] [address] Potassium [Moles/Vol] 4.1 mmol/L Normal 3.5-5.1 [facility] ([place]) Comment on above: Order Comment: hemol yzed Performed By: #### G FR, BMP ####[address] [place], [place] [address] Sodium [Moles/Vol] 139 mmol/L Normal 136-145 Replaced by [facility] ([place]) Comment on above: Order Comment: hemol yzed Performed By: #### G FR, BMP ####Johny [address] [place], [place] [address] Urea nitrogen [Mass/Vol] 8 mg/dL Normal 7-18 [facility] ([place]) Comment on above: Order Comment: hemol yzed Performed By: #### G FR, BMP ####Johny [address] [place] [address] LABORATORYOrdered By: SYSTEM SYSTEM on 03-05-2023 Calcium [Mass/Vol] 9.8 mg/dL Normal 8.4 - 10. 2 mg/dL AO ADM SS Chloride [Moles/Vol] 102 mmol/L Normal 98 - 10 7 mmol/L AO ADM SS CO2 [Moles/Vol] 28 mmol/L Normal 22 - 29 mmol/L AO ADM SS Creatinine [Mass/Vol] 1.04 mg/dL High 0.55 - 1.02 mg/dL AO ADM SS Electrolyte Balance 9.0 mEq/L Normal 4.0 - 15 .0 mEq/L AO ADM SS GFR/1.73 sq M.predicted among blacks MDRD (S/P/Bld) [Vol rate/Area] 67 ml/min/1.73sqm Invalid Interpretation Code AO Chemistry S Comment on above: Interpretive Data: GFR Population mean for , Non- Americans Ages 20-29 = 116 mL/min/1.73 sq.m. Ages 30-39 = 107 mL/min/1.73 sq.m. Ages 40-49 = 99 mL/min/1.73 sq.m. Ages 50-59 = 93 mL/min/1.73 sq.m. Ages 60-69 = 85 mL/min/1.73 sq.m. Ages 70+ = 75 mL/min/1.73 sq.m. Chronic Kidney Disease: Less than 60 mL/min/1.73 square meters End Stage Renal Disease: Less than 15 mL/min/1.73 square meters GFR/1.73 sq M.predicted among non-blacks MDRD (S/P/Bld) [Vol rate/Area] 56 ml/min/1.73sqm Invalid Interpretation Code AO Chemistry S Comment on above: Interpretive Data: GFR Population mean for , Non- Americans Ages 20-29 = 116 mL/min/1.73 sq.m. Ages 30-39 = 107 mL/min/1.73 sq.m. Ages 40-49 = 99 mL/min/1.73 sq.m. Ages 50-59 = 93 mL/min/1.73 sq.m. Ages 60-69 = 85 mL/min/1.73 sq.m. Ages 70+ = 75 mL/min/1.73 sq.m. Chronic Kidney Disease: Less than 60 mL/min/1.73 square meters End Stage Renal Disease: Less than 15 mL/min/1.73 square meters Glucose [Mass/Vol] 118 mg/dL High 70 - 105 mg/dL AO ADM SS Potassium [Moles/Vol] 4.1 mmol/L Normal 3.5 - 5.1 mmol/L AO ADM SS Sodium [Moles/Vol] 139 mmol/L Normal 136 - 145 mmol/L AO ADM SS Urea nitrogen [Mass/Vol] 8 mg/dL Normal 7 - 18 mg/dL AO ADM SS Urea nitrogen/Creatinine [Mass ratio] 8 ratio Normal 7 - 27 ratio AO ADM SS CNOVon 03-04-2023 CNOV Office Visit (UCWSTR ) KAMALA GRAY ([id number]) 1970 F Date Time Provider Department 03/04/23 9:30 AM TRACEE CHAKRABORTY RUST During your visit today, we recorded the following information about you: Temperature Pulse Respiration Blood pressure 98.4 degrees 97/minute 20/minute 148/95 Weight 133.4 kg Tracee Chakraborty APRN.WRAPPING CLERK 03/04/2023 9:25 AM Signed This note was created using NoteWriter. Subjective May Garcia Gray is a 52 year old [...] for CT and further management Tracee Chakraborty APRN.WRAPPING CLERK Allergies As of Date: 03/04/2023 Noted Allergy Reaction HYDROCHLOROTHIAZIDE 09/28/2019 16 - Unknown NAPROXEN 11/05/2018 11 - Vomiting ASA (SALICYLATES) 12/21/2007 Date Reviewed: 03/04/2023 Reviewed by: Isabel Anna LPN - Fully Assessed Reason for Visit: Abdominal Pain [1] Cmt: Midline, states inside belly button, has had infection before x 2 days Laceration [1747] Cmt: Had fall x 1 week ago and has laceration on RLE redness, warm, pain x 3 days Primary Visit Diagnosis:Lower abdominal pain [R10.30] Prescriptions as of 03/04/2023 - magnesium oxide 200 mg magnesium tab Take 1 tablet by mouth daily at bedtime. - atogepant (QULIPTA) 30 mg tablet Take by mouth. - budesonide-formoterol (SYMBICORT) 160-4.5 mcg/actuation inhaler Inhale 2 Puffs as instructed. - fremanezumab-vfrm (AJOVY AUTOINJECTOR) 225 mg/1.5 mL auto-injector Inject 225 mg subcutaneously once every month. Do not shake. - benzonatate (TESSALON PERLES) 100 mg capsule Take 2 capsules by mouth three times daily as needed. - nystatin (MYCOSTATIN) powder Apply 1 application to affected area three times daily. - ondansetron orally disintegrating (ZOFRAN ODT) 4 mg disintegrating tablet Take 1 tablet by mouth every 6 hours as needed for nausea/vomiting. - guaiFENesin (MUCINEX FAST-MAX CHEST-CONGEST) 100 mg/5 mL syrup Take 20 mL by mouth every 4 hours as needed. - megestrol (MEGACE) 40 mg tablet Take 40 mg by mouth once daily. - TRELEGY ELLIPTA 100-62.5-25 mcg INHALE 1 PUFF DAILY with good oral care - levothyroxine (SYNTHROID) 300 mcg tablet Take by mouth. Not taking - acetaminophen(TYLENOL 325 MG TAB) Problem List As Of Date 03/04/2023 Noted Resolved HYPOTHYROIDISM NOS [E03.9] 12/21/2007 Encounter Status:Closed by TRACEE CHAKRABORTY on 03/04/23 Normal [facility] .Auto Diffon 02-20-2023 Basophil, Absolute 0.1 10 3/mcL Normal 0.0-0.2 [facility] ([place]) Comment on above: Performed By: #### P BNP, MDW, CBC, TSH, TROPHS, FT4, BMP, GFR, ADIFF, ANEU ####Johny [address] [place], [place] [address] Basophils/100 WBC (Bld) 0.7 % Normal 0.0-2.5 [facility] ([place]) Comment on above: Performed By: #### P BNP, MDW, CBC, TSH, TROPHS, FT4, BMP, GFR, ADIFF, ANEU ####Johny [address] [place], [place] [address] Eosinophil, Absolute 0.6 10 3/mcL High 0.0-0.4 [facility] ([place]) Comment on above: Performed By: #### P BNP, MDW, CBC, TSH, TROPHS, FT4, BMP, GFR, ADIFF, ANEU ####[address] [place], [place] [address] Eosinophils/100 WBC (Bld) 4.4 % Normal 0.0-7.0 [facility] ([place]) Comment on above: Performed By: #### P BNP, MDW, CBC, TSH, TROPHS, FT4, BMP, GFR, ADIFF, ANEU ####Johny [address] [place], [place] [address] Lymphocyte, Absolute 1.4 10 3/mcL Normal 0.8-3.9 [facility] ([place]) Comment on above: Performed By: #### P BNP, MDW, CBC, TSH, TROPHS, FT4, BMP, GFR, ADIFF, ANEU ####Johny [address] [place], [place] [address] Lymphocytes/100 WBC (Bld) 10.7 % Normal 10.0-50.0 [facility] ([place]) Comment on above: Performed By: #### P BNP, MDW, CBC, TSH, TROPHS, FT4, BMP, GFR, ADIFF, ANEU ####[address] [place], [place] [address] Monocyte, Absolute 0.8 10 3/mcL Normal 0.2-1.0 [facility] ([place]) Comment on above: Performed By: #### P BNP, MDW, CBC, TSH, TROPHS, FT4, BMP, GFR, ADIFF, ANEU ####[address] [place], [place] [address] Monocytes/100 WBC (Bld) 6.5 % Normal 1.7-13.0 [facility] ([place]) Comment on above: Performed By: #### P BNP, MDW, CBC, TSH, TROPHS, FT4, BMP, GFR, ADIFF, ANEU ####John[address] [place], [place] [address] Neutrophils/100 WBC (Bld) 77.7 % Normal 37.0-80.0 [facility] ([place]) Comment on above: Performed By: #### P BNP, MDW, CBC, TSH, TROPHS, FT4, BMP, GFR, ADIFF, ANEU ####Johny [address] [place], [place] [address] .GFRon 02-20-2023 GFR Non- 44 ml/min/1.73sqm Normal [facility] ([place]) Comment on above: Result Comment: GFR Population mean for , Non- Americans Ages 20-29 = 116 mL/min/1.73 sq.m. Ages 30-39 = 107 mL/min/1.73 sq.m. Ages 40-49 = 99 mL/min/1.73 sq.m. Ages 50-59 = 93 mL/min/1.73 sq.m. Ages 60-69 = 85 mL/min/1.73 sq.m. Ages 70+ = 75 mL/min/1.73 sq.m.Chronic Kidney Disease: Less than 60 mL/min/1.73 square metersEnd Stage Renal Disease: Less than 15 mL/min/1.73 square meters Performed By: #### P BNP, MDW, CBC, TSH, TROPHS, FT4, BMP, GFR, ADIFF, ANEU ####[address] [place], [place] [address] GFR 53 ml/min/1.73sqm Normal [facility] ([place]) Comment on above: Result Comment: GFR Population mean for , Non- Americans Ages 20-29 = 116 mL/min/1.73 sq.m. Ages 30-39 = 107 mL/min/1.73 sq.m. Ages 40-49 = 99 mL/min/1.73 sq.m. Ages 50-59 = 93 mL/min/1.73 sq.m. Ages 60-69 = 85 mL/min/1.73 sq.m. Ages 70+ = 75 mL/min/1.73 sq.m.Chronic Kidney Disease: Less than 60 mL/min/1.73 square metersEnd Stage Renal Disease: Less than 15 mL/min/1.73 square meters Performed By: #### P BNP, MDW, CBC, TSH, TROPHS, FT4, BMP, GFR, ADIFF, ANEU ####[address] [place], [place] [address] .MDWon 02-20-2023 Monocyte Distribution Width 18.62 Normal 0.00-20.00 [facility] ([place]) Comment on above: Result Comment: For ED adult patients suspected of sepsis, MDW<=20.0 does not rule out sepsis or risk of sepsis Performed By: #### P BNP, MDW, CBC, TSH, TROPHS, FT4, BMP, GFR, ADIFF, ANEU ####[address] [place], [place] [address] .NEUABSon 02-20-2023 Neutrophil, Absolute 9.9 10 3/mcL High 2.9-6.2 [facility] [place]) Comment on above: Performed By: #### P BNP, MDW, CBC, TSH, TROPHS, FT4, BMP, GFR, ADIFF, ANEU ####[address] [place], [place] [address] BMPon 02-20-2023 BUN/Creatinine Ratio 6 ratio Low 7-27 [facility] ([place]) Comment on above: Performed By: #### P BNP, MDW, CBC, TSH, TROPHS, FT4, BMP, GFR, ADIFF, ANEU ####[address] [place], [place] [address] Calcium [Mass/Vol] 10.2 mg/dL Normal 8.4-10.2 Replaced by [facility] ([place]) Comment on above: Performed By: #### P BNP, MDW, CBC, TSH, TROPHS, FT4, BMP, GFR, ADIFF, ANEU ####[address] [place], [place] [address] Chloride [Moles/Vol] 104 mmol/L Normal 98-107 [facility] ([place]) Comment on above: Performed By: #### P BNP, MDW, CBC, TSH, TROPHS, FT4, BMP, GFR, ADIFF, ANEU ####[address] [place], [place] [address] CO2 [Moles/Vol] 29 mmol/L Normal 22-29 [facility] ([place]) Comment on above: Performed By: #### P BNP, MDW, CBC, TSH, TROPHS, FT4, BMP, GFR, ADIFF, ANEU ####John[address] [place], [place] [address] Creatinine [Mass/Vol] 1.28 mg/dL High 0.55-1.02 [facility] ([place]) Comment on above: Performed By: #### P BNP, MDW, CBC, TSH, TROPHS, FT4, BMP, GFR, ADIFF, ANEU ####[address] [place], [place] [address] Electrolyte Balance 10.0 mEq/L Normal 4.0-15.0 [facility] ([place]) Comment on above: Performed By: #### P BNP, MDW, CBC, TSH, TROPHS, FT4, BMP, GFR, ADIFF, ANEU ####[address] [place], [place] [address] Glucose [Mass/Vol] 121 mg/dL High 70-105 Replaced by [facility] ([place]) Comment on above: Performed By: #### P BNP, MDW, CBC, TSH, TROPHS, FT4, BMP, GFR, ADIFF, ANEU ####[address] [place], [place] [address] Potassium [Moles/Vol] 4.0 mmol/L Normal 3.5-5.1 [facility] ([place]) Comment on above: Performed By: #### P BNP, MDW, CBC, TSH, TROPHS, FT4, BMP, GFR, ADIFF, ANEU ####Johny [address] [place], [place] [address] Sodium [Moles/Vol] 143 mmol/L Normal 136-145 Replaced by [facility] ([place]) Comment on above: Performed By: #### P BNP, MDW, CBC, TSH, TROPHS, FT4, BMP, GFR, ADIFF, ANEU ####[address] [place], [place] [address] Urea nitrogen [Mass/Vol] 8 mg/dL Normal 7-18 [facility] ([place]) Comment on above: Performed By: #### P BNP, MDW, CBC, TSH, TROPHS, FT4, BMP, GFR, ADIFF, ANEU ####Johny [address] [place], [place] [address] CBCon 02-20-2023 Erythrocyte distribution width (RBC) [Ratio] 16.7 % High 11.5-14.5 [facility] ([place]) Comment on above: Performed By: #### P BNP, MDW, CBC, TSH, TROPHS, FT4, BMP, GFR, ADIFF, ANEU ####John[address] [place], [place] [address] Hematocrit (Bld) [Volume fraction] 36.4 % Low 37.0-47.0 [facility] ([place]) Comment on above: Performed By: #### P BNP, MDW, CBC, TSH, TROPHS, FT4, BMP, GFR, ADIFF, ANEU ####[address] [place], [place] [address] Hgb 11.9 G/dL Low 12.0-16.0 [facility] ([place]) Comment on above: Performed By: #### P BNP, MDW, CBC, TSH, TROPHS, FT4, BMP, GFR, ADIFF, ANEU ####Johny [address] [place], [place] [address] MCH (RBC) [Entitic mass] 32.8 pg High 27.0-31.2 [facility] ([place]) Comment on above: Performed By: #### P BNP, MDW, CBC, TSH, TROPHS, FT4, BMP, GFR, ADIFF, ANEU ####[address] [place], [place] [address] MCHC 32.6 G/dL Low 33.0-37.0 [facility] ([place]) Comment on above: Performed By: #### P BNP, MDW, CBC, TSH, TROPHS, FT4, BMP, GFR, ADIFF, ANEU ####[address] [place], [place] [address] MCV (RBC) [Entitic vol] 100.7 fL High 80.0-94.0 [facility] ([place]) Comment on above: Performed By: #### P BNP, MDW, CBC, TSH, TROPHS, FT4, BMP, GFR, ADIFF, ANEU ####[address] [place], [place] [address] Platelet 412 10 3/mcL High 130-400 [facility] ([place]) Comment on above: Performed By: #### P BNP, MDW, CBC, TSH, TROPHS, FT4, BMP, GFR, ADIFF, ANEU ####Johny [address] [place], [place] [address] Platelet mean volume (Bld) [Entitic vol] 7.7 fL Normal 7.4-10.4 [facility] ([place]) Comment on above: Performed By: #### P BNP, MDW, CBC, TSH, TROPHS, FT4, BMP, GFR, ADIFF, ANEU ####[address] [place], [place] [address] RBC 3.61 10 6/mcL Low 4.20-5.40 [facility] ([place]) Comment on above: Performed By: #### P BNP, MDW, CBC, TSH, TROPHS, FT4, BMP, GFR, ADIFF, ANEU ####Johny [address] [place], [place] [address] WBC 12.8 10 3/mcL High 4.6-10.8 [facility] ([place]) Comment on above: Performed By: #### P BNP, MDW, CBC, TSH, TROPHS, FT4, BMP, GFR, ADIFF, ANEU ####[address] [place], [place] [address] FT4on 02-20-2023 Free T4 [Mass/Vol] 0.45 ng/dL Low 0.76-1.46 Replaced by [facility] ([place]) Comment on above: Performed By: #### P BNP, MDW, CBC, TSH, TROPHS, FT4, BMP, GFR, ADIFF, ANEU ####Johny [address] [place], [place] [address] PBNPon 02-20-2023 Natriuretic peptide B (Bld) [Mass/Vol] 78 pg/mL Normal 0-125 [facility] ([place]) Comment on above: Result Comment: NT-p roBNP results of less than 300 pg/mL effectivelyrules out acute congestive heart failure with 99% negative predictive value. Performed By: #### P BNP, MDW, CBC, TSH, TROPHS, FT4, BMP, GFR, ADIFF, ANEU ####Johny [address] [place], [place] [address] TROPHSon 02-20-2023 Troponin I High Sensitivity 7.2 ng/L Normal 0.0-51.4 [facility] ([place]) Comment on above: Performed By: #### T ROPHS ####Johny [address] [place], [place] [address] Troponin I High Sensitivity 10.7 ng/L Normal 0.0-51.4 [facility] ([place]) Comment on above: Performed By: #### P BNP, MDW, CBC, TSH, TROPHS, FT4, BMP, GFR, ADIFF, ANEU ####[address] [place], [place] [address] TSHon 02-20-2023 TSH Qn 79.50 m[IU]/L High 0.36-3.74 [facility] ([place]) Comment on above: Performed By: #### P BNP, MDW, CBC, TSH, TROPHS, FT4, BMP, GFR, ADIFF, ANEU ####[address] [place], [place] [address] UAon 02-20-2023 Color (U) Yellow Normal [facility] ([place]) Comment on above: Performed By: #### U A ####[address] [place], [place] [address] Glucose (U) [Mass/Vol] Negative Normal Negative [facility] ([place]) Comment on above: Performed By: #### U A ####[address] [place], [place] [address] Ketones Ql (U) Negative Normal Negative [facility] ([place]) Comment on above: Performed By: #### U A ####[address] [place], [place] [address] UA Appear Clear Normal Clear [facility] ([place]) Comment on above: Performed By: #### U A ####[address] [place], [place] [address] UA Blood Negative Normal Negative [facility] ([place]) Comment on above: Performed By: #### U A ####[address] [place], [place] [address] UA Leuk Est Negative Normal Negative [facility] ([place]) Comment on above: Performed By: #### U A ####[address] [place], [place] [address] UA Nitrite Negative Normal Negative [facility] ([place]) Comment on above: Performed By: #### U A ####[address] [place], [place] [address] UA pH 7.5 Normal 5.0 - 8.0 [facility] ([place]) Comment on above: Performed By: #### U A ####[address] [place], [place] [address] UA Protein Negative Normal Negative [facility] ([place]) Comment on above: Performed By: #### U A ####[address] [place], [place] [address] UA Spec Grav 1.020 Normal 1.015-1.025 [facility] ([place]) Comment on above: Performed By: #### U A ####[address] [place], [place] [address] UA Specimen Type Clean Catch Normal [facility] ([place]) Comment on above: Performed By: #### U A ####[address] [place], [place] [address] UA Urobilinogen 0.2 E.U./dL Normal 0.2-1.0 [facility] ([place]) Comment on above: Performed By: #### U A ####Johny [address] [place], [place] [address] Urobilinogen (U) [Mass/Vol] Negative Normal Negative [facility] ([place]) Comment on above: Performed By: #### U A ####Johny [address] [place], [place] [address] XR CHEST 1 VIEWon 02-20-2023 XR CHEST 1 VIEW Normal [facility] ([place] CT HEAD OR BRAIN W/O CONTRAS Ton 02-17-2023 CT HEAD OR BRAIN W/O CONTRAST Normal [facility]) CURon 01-27-2023 CUR Normal [facility] ([place]) .Auto Diffon 01-23-2023 Basophil, Absolute 0.1 10 3/mcL Normal 0.0-0.2 [facility] ([place]) Comment on above: Performed By: #### M DW, HFP, LIP, ADIFF, GFR, BMP, CBC, ANEU ####[address] [place], [place] [address] Basophils/100 WBC (Bld) 1.1 % Normal 0.0-2.5 [facility]) Comment on above: Performed By: #### M DW, HFP, LIP, ADIFF, GFR, BMP, CBC, ANEU ####Johny [address] [place], [place] [address] Eosinophil, Absolute 0.6 10 3/mcL High 0.0-0.4 [facility] [place]) Comment on above: Performed By: #### M DW, HFP, LIP, ADIFF, GFR, BMP, CBC, ANEU ####[address] [place], [place] [address] Eosinophils/100 WBC (Bld) 5.9 % Normal 0.0-7.0 [facility] ([place]) Comment on above: Performed By: #### M DW, HFP, LIP, ADIFF, GFR, BMP, CBC, ANEU ####[address] [place], [place] [address] Lymphocyte, Absolute 1.2 10 3/mcL Normal 0.8-3.9 [facility] [place]) Comment on above: Performed By: #### M DW, HFP, LIP, ADIFF, GFR, BMP, CBC, ANEU ####Johny [address] [place], [place] [address] Lymphocytes/100 WBC (Bld) 11.7 % Normal 10.0-50.0 [facility] ([place]) Comment on above: Performed By: #### M DW, HFP, LIP, ADIFF, GFR, BMP, CBC, ANEU ####Johny [address] [place], [place] [address] Monocyte, Absolute 0.6 10 3/mcL Normal 0.2-1.0 [facility] ([place]) Comment on above: Performed By: #### M DW, HFP, LIP, ADIFF, GFR, BMP, CBC, ANEU ####Johny [address] [place], [place] [address] Monocytes/100 WBC (Bld) 6.3 % Normal 1.7-13.0 [facility] ([place]) Comment on above: Performed By: #### M DW, HFP, LIP, ADIFF, GFR, BMP, CBC, ANEU ####Johny [address] [place], [place] [address] Neutrophils/100 WBC (Bld) 75.0 % Normal 37.0-80.0 [facility] ([place]) Comment on above: Performed By: #### M DW, HFP, LIP, ADIFF, GFR, BMP, CBC, ANEU ####Johny [address] [place], [place] [address] .GFRon 01-23-2023 GFR 49 ml/min/1.73sqm Normal [facility] ([place]) Comment on above: Result Comment: GFR Population mean for , Non- Americans Ages 20-29 = 116 mL/min/1.73 sq.m. Ages 30-39 = 107 mL/min/1.73 sq.m. Ages 40-49 = 99 mL/min/1.73 sq.m. Ages 50-59 = 93 mL/min/1.73 sq.m. Ages 60-69 = 85 mL/min/1.73 sq.m. Ages 70+ = 75 mL/min/1.73 sq.m.Chronic Kidney Disease: Less than 60 mL/min/1.73 square metersEnd Stage Renal Disease: Less than 15 mL/min/1.73 square meters Performed By: #### M DW, HFP, LIP, ADIFF, GFR, BMP, CBC, ANEU ####[id number] [place], [place] [address] GFR Non- 40 ml/min/1.73sqm Normal [facility] ([place]) Comment on above: Result Comment: GFR Population mean for , Non- Americans Ages 20-29 = 116 mL/min/1.73 sq.m. Ages 30-39 = 107 mL/min/1.73 sq.m. Ages 40-49 = 99 mL/min/1.73 sq.m. Ages 50-59 = 93 mL/min/1.73 sq.m. Ages 60-69 = 85 mL/min/1.73 sq.m. Ages 70+ = 75 mL/min/1.73 sq.m.Chronic Kidney Disease: Less than 60 mL/min/1.73 square metersEnd Stage Renal Disease: Less than 15 mL/min/1.73 square meters Performed By: #### M DW, HFP, LIP, ADIFF, GFR, BMP, CBC, ANEU ####Johny [address] [place], [place] [address] .MDWon 01-23-2023 Monocyte Distribution Width 18.25 Normal 0.00-20.00 [facility] ([place]) Comment on above: Result Comment: For ED adult patients suspected of sepsis, MDW<=20.0 does not rule out sepsis or risk of sepsis Performed By: #### M DW, HFP, LIP, ADIFF, GFR, BMP, CBC, ANEU ####Johny [address] [place] [address] .NEUABSon 01-23-2023 Neutrophil, Absolute 7.4 10 3/mcL High 2.9-6.2 [facility] ([place]) Comment on above: Performed By: #### M DW, HFP, LIP, ADIFF, GFR, BMP, CBC, ANEU ####Johny [address] [place] [address] .Urinalysis Microscopic (AO) on 01-23-2023 UA Amorphus Trace Normal [facility] ([place]) Comment on above: Performed By: #### U AMICAO, UA ####Johny [address] [place] [address] UA Bacteria 1+ /hpf Abnormal [facility] ([place]) Comment on above: Performed By: #### U AMICAO, UA ####Johny [address] [place] [address] UA RBC 0-5 Abnormal None Seen [facility] ([place]) Comment on above: Performed By: #### U AMICAO, UA ####Johny [address] [place] [address] UA Squam Epithelial 0-5 Abnormal None Seen [facility] ([place]) Comment on above: Performed By: #### U AMICAO, UA ####Johny [address] [place] [address] UA WBC 5-10 Abnormal None Seen [facility] ([place]) Comment on above: Performed By: #### U AMICAO, UA ####Johny [address] [place] [address] BMPon 01-23-2023 BUN/Creatinine Ratio 9 ratio Normal 7-27 [facility] ([place]) Comment on above: Performed By: #### M DW, HFP, LIP, ADIFF, GFR, BMP, CBC, ANEU ####Johny [address] [place], [place] [address] Calcium [Mass/Vol] 9.8 mg/dL Normal 8.4-10.2 Replaced by [facility] ([place]) Comment on above: Performed By: #### M DW, HFP, LIP, ADIFF, GFR, BMP, CBC, ANEU ####Johny [address] [place], [place] [address] Chloride [Moles/Vol] 102 mmol/L Normal 98-107 [facility] ([place]) Comment on above: Performed By: #### M DW, HFP, LIP, ADIFF, GFR, BMP, CBC, ANEU ####Johny [address] [place], [place] [address] CO2 [Moles/Vol] 24 mmol/L Normal 22-29 [facility] ([place]) Comment on above: Performed By: #### M DW, HFP, LIP, ADIFF, GFR, BMP, CBC, ANEU ####Johny [address] [place], [place] [address] Creatinine [Mass/Vol] 1.38 mg/dL High 0.55-1.02 [facility] ([place]) Comment on above: Performed By: #### M DW, HFP, LIP, ADIFF, GFR, BMP, CBC, ANEU ####Johny [address] [place], [place] [address] Electrolyte Balance 12.0 mEq/L Normal 4.0-15.0 [facility] ([place]) Comment on above: Performed By: #### M DW, HFP, LIP, ADIFF, GFR, BMP, CBC, ANEU ####Johny [address] [place], [place] [address] Glucose [Mass/Vol] 129 mg/dL High 70-105 Replaced by [facility] ([place]) Comment on above: Performed By: #### M DW, HFP, LIP, ADIFF, GFR, BMP, CBC, ANEU ####Johny [address] [place], [place] [address] Potassium [Moles/Vol] 4.2 mmol/L Normal 3.5-5.1 [facility] ([place]) Comment on above: Performed By: #### M DW, HFP, LIP, ADIFF, GFR, BMP, CBC, ANEU ####[address] [place], [place] [address] Sodium [Moles/Vol] 138 mmol/L Normal 136-145 Replaced by [facility] ([place] Comment on above: Performed By: #### M DW, HFP, LIP, ADIFF, GFR, BMP, CBC, ANEU ####Johny [address] [place], [place] [address] Urea nitrogen [Mass/Vol] 13 mg/dL Normal 7-18 [facility] ([place]) Comment on above: Performed By: #### M DW, HFP, LIP, ADIFF, GFR, BMP, CBC, ANEU ####Johny [address] [place], [place] [address] CBCon 01-23-2023 Erythrocyte distribution width (RBC) [Ratio] 19.0 % High 11.5-14.5 [facility] ([place]) Comment on above: Performed By: #### M DW, HFP, LIP, ADIFF, GFR, BMP, CBC, ANEU ####Johny [address] [place], [place] [address] Hematocrit (Bld) [Volume fraction] 35.3 % Low 37.0-47.0 [facility] ([place]) Comment on above: Performed By: #### M DW, HFP, LIP, ADIFF, GFR, BMP, CBC, ANEU ####Johny [address] [place], [place] [address] Hgb 11.5 G/dL Low 12.0-16.0 [facility] ([place]) Comment on above: Performed By: #### M DW, HFP, LIP, ADIFF, GFR, BMP, CBC, ANEU ####Johny [address] [place], [place] [address] MCH (RBC) [Entitic mass] 32.7 pg High 27.0-31.2 [facility] ([place]) Comment on above: Performed By: #### M DW, HFP, LIP, ADIFF, GFR, BMP, CBC, ANEU ####Johny [address] [place], [place] [address] MCHC 32.5 G/dL Low 33.0-37.0 [facility] ([place]) Comment on above: Performed By: #### M DW, HFP, LIP, ADIFF, GFR, BMP, CBC, ANEU ####Johny [address] [place], [place] [address] MCV (RBC) [Entitic vol] 100.8 fL High 80.0-94.0 [facility] ([place]) Comment on above: Performed By: #### M DW, HFP, LIP, ADIFF, GFR, BMP, CBC, ANEU ####Johny [address] [place], [place] [address] Platelet 290 10 3/mcL Normal 130-400 [facility] ([place]) Comment on above: Performed By: #### M DW, HFP, LIP, ADIFF, GFR, BMP, CBC, ANEU ####Johnyvishal [address] [place], [place] [address] Platelet mean volume (Bld) [Entitic vol] 8.6 fL Normal 7.4-10.4 [facility] ([place]) Comment on above: Performed By: #### M DW, HFP, LIP, ADIFF, GFR, BMP, CBC, ANEU ####Johny [address] [place], [place] [address] RBC 3.50 10 6/mcL Low 4.20-5.40 [facility] ([place]) Comment on above: Performed By: #### M DW, HFP, LIP, ADIFF, GFR, BMP, CBC, ANEU ####Johnyvishal [address] [place], [place] [address] WBC 9.9 10 3/mcL Normal 4.6-10.8 [facility] ([place]) Comment on above: Performed By: #### M DW, HFP, LIP, ADIFF, GFR, BMP, CBC, ANEU ####Johnyvishal [address] [place], [place] [address] CT ABD/PELVIS W/ IV CONTRAST ONLYon 01-23-2023 CT ABD/PELVIS W/ IV CONTRAST ONLY Normal [facility] ([place]) HFPon 01-23-2023 Bili Indirect 0.3 mg/dL Normal [facility] ([place]) Comment on above: Performed By: #### M DW, HFP, LIP, ADIFF, GFR, BMP, CBC, ANEU ####Johny [address] [place], [place] [address] Albumin Level 3.9 G/dL Normal 3.5-5.0 [facility] ([place]) Comment on above: Performed By: #### M DW, HFP, LIP, ADIFF, GFR, BMP, CBC, ANEU ####Johny [address] [place], [place] [address] Albumin/Globulin [Mass ratio] 1.1 {ratio} Normal 1.1-2.5 [facility] ([place]) Comment on above: Performed By: #### M DW, HFP, LIP, ADIFF, GFR, BMP, CBC, ANEU ####Johny [address] [place], [place] [address] ALP [Catalytic activity/Vol] 132 U/L Normal 40-135 [facility] ([place]) Comment on above: Performed By: #### M DW, HFP, LIP, ADIFF, GFR, BMP, CBC, ANEU ####Johny [address] [place], [place] [address] ALT [Catalytic activity/Vol] 25 U/L Normal 14-59 [facility] ([place]) Comment on above: Performed By: #### M DW, HFP, LIP, ADIFF, GFR, BMP, CBC, ANEU ####Johny [address] [place], [place] [address] AST [Catalytic activity/Vol] 24 U/L Normal 10-40 [facility] ([place]) Comment on above: Performed By: #### M DW, HFP, LIP, ADIFF, GFR, BMP, CBC, ANEU ####Johny [address] [place], [place] [address] Bili Direct 0.1 mg/dL Normal 0.0-0.2 [facility] ([place]) Comment on above: Result Comment: Use of this assay is not recommended for patients undergoing treatment with eltrombopag due to the potential for falsely elevated results. Performed By: #### M DW, HFP, LIP, ADIFF, GFR, BMP, CBC, ANEU ####Johny [address] [place], [place] [address] Bili Total 0.4 mg/dL Normal 0.2-1.0 [facility] ([place]) Comment on above: Result Comment: Use of this assay is not recommended for patients undergoing treatment with eltrombopag due to the potential for falsely elevated results. Performed By: #### M DW, HFP, LIP, ADIFF, GFR, BMP, CBC, ANEU ####Johny [address] [place], [place] [address] Globulin 3.6 G/dL Normal [facility] ([place]) Comment on above: Performed By: #### M DW, HFP, LIP, ADIFF, GFR, BMP, CBC, ANEU ####Johny [address] [place], [place] [address] Total Protein 7.5 G/dL Normal 6.4-8.2 [facility] ([place]) Comment on above: Performed By: #### M DW, HFP, LIP, ADIFF, GFR, BMP, CBC, ANEU ####Johny [address] [place], [place] [address] LABORATORYOrdered By: SYSTEM SYSTEM on 01-23-2023 Albumin BCP dye [Mass/Vol] 3.9 G/dL Normal 3.5 - 5.0 G/dL AO ADM SS Albumin/Globulin [Mass ratio] 1.1 {ratio} Normal 1.1 - 2.5 ratio AO ADM SS ALP [Catalytic activity/Vol] 132 U/L Normal 40 - 135 U/L AO ADM SS ALT With P-5'-P [Catalytic activity/Vol] 25 U/L Normal 14 - 59 U/L AO ADM SS AST With P-5'-P [Catalytic activity/Vol] 24 U/L Normal 10 - 40 U/L AO ADM SS Basophil, Absolute 0.1 103/mcL Normal 0.0 - 0.2 10^3/mcL AO Workflow SS Basophils/100 WBC (Bld) 1.1 % Normal 0.0 - 2.5 % AO Workflow SS Bilirubin [Mass/Vol] 0.4 mg/dL Normal 0.2 - 1 .0 mg/dL AO ADM SS Comment on above: Interpretive Data: U se of this assay is not recommended for patients undergoing treatment with eltrombopag due to the potential for falsely elevated results. Bilirubin.direct [Mass/Vol] 0.1 mg/dL Normal 0.0 - 0.2 mg/dL AO ADM SS Comment on above: Interpretive Data: U se of this assay is not recommended for patients undergoing treatment with eltrombopag due to the potential for falsely elevated results. Bilirubin.direct [Mass/Vol] 0.3 mg/dL Invalid Interpretation Code AO Chemistry S Calcium [Mass/Vol] 9.8 mg/dL Normal 8.4 - 10. 2 mg/dL AO ADM SS Chloride [Moles/Vol] 102 mmol/L Normal 98 - 10 7 mmol/L AO ADM SS CO2 [Moles/Vol] 24 mmol/L Normal 22 - 29 mmol/L AO ADM SS Creatinine [Mass/Vol] 1.38 mg/dL High 0.55 - 1.02 mg/dL AO ADM SS Electrolyte Balance 12.0 mEq/L Normal 4.0 - 15 .0 mEq/L AO ADM SS Eosinophil, Absolute 0.6 103/mcL High 0.0 - 0 .4 10^3/mcL AO Workflow SS Eosinophils/100 WBC (Bld) 5.9 % Normal 0.0 - 7.0 % AO Workflow SS Erythrocyte distribution width (RBC) [Ratio] 19.0 % High 11.5 - 14.5 % AO Workflow SS GFR/1.73 sq M.predicted among blacks MDRD (S/P/Bld) [Vol rate/Area] 49 ml/min/1.73sqm Invalid Interpretation Code AO Chemistry S Comment on above: Interpretive Data: GFR Population mean for , Non- Americans Ages 20-29 = 116 mL/min/1.73 sq.m. Ages 30-39 = 107 mL/min/1.73 sq.m. Ages 40-49 = 99 mL/min/1.73 sq.m. Ages 50-59 = 93 mL/min/1.73 sq.m. Ages 60-69 = 85 mL/min/1.73 sq.m. Ages 70+ = 75 mL/min/1.73 sq.m. Chronic Kidney Disease: Less than 60 mL/min/1.73 square meters End Stage Renal Disease: Less than 15 mL/min/1.73 square meters GFR/1.73 sq M.predicted among non-blacks MDRD (S/P/Bld) [Vol rate/Area] 40 ml/min/1.73sqm Invalid Interpretation Code AO Chemistry S Comment on above: Interpretive Data: GFR Population mean for , Non- Americans Ages 20-29 = 116 mL/min/1.73 sq.m. Ages 30-39 = 107 mL/min/1.73 sq.m. Ages 40-49 = 99 mL/min/1.73 sq.m. Ages 50-59 = 93 mL/min/1.73 sq.m. Ages 60-69 = 85 mL/min/1.73 sq.m. Ages 70+ = 75 mL/min/1.73 sq.m. Chronic Kidney Disease: Less than 60 mL/min/1.73 square meters End Stage Renal Disease: Less than 15 mL/min/1.73 square meters Globulin 3.6 G/dL Invalid Interpretation Code AO ADM SS Glucose [Mass/Vol] 129 mg/dL High 70 - 105 mg/dL AO ADM SS Hematocrit (Bld) [Volume fraction] 35.3 % Low 37.0 - 47.0 % AO Workflow SS Hemoglobin (Bld) [Mass/Vol] 11.5 G/dL Low 12.0 - 16.0 G/dL AO Workflow SS Lipase [Catalytic activity/Vol] 80 U/L High 16 - 77 U/L AO ADM SS Lymphocyte, Absolute 1.2 103/mcL Normal 0.8 - 3 .9 10^3/mcL AO Workflow SS Lymphocytes/100 WBC (Bld) 11.7 % Normal 10.0 - 50.0 % AO Workflow SS MCH (RBC) [Entitic mass] 32.7 pg High 27.0 - 31.2 pg AO Workflow SS MCHC 32.5 G/dL Low 33.0 - 37.0 G/dL AO Workflow SS MCV (RBC) [Entitic vol] 100.8 fL High 80.0 - 94.0 fL AO Workflow SS Monocyte distribution width Auto (Bld) [Entitic vol] 18.25 1 Normal 0.00 - 20.00 AO Workflow SS Comment on above: Result Comment: For ED adult patients suspected of sepsis, MDW<=20.0 does not rule out sepsis or risk of sepsis Monocyte, Absolute 0.6 103/mcL Normal 0.2 - 1.0 10^3/mcL AO Workflow SS Monocytes/100 WBC (Bld) 6.3 % Normal 1.7 - 13.0 % AO Workflow SS Neutrophil, Absolute 7.4 103/mcL High 2.9 - 6 .2 10^3/mcL AO Workflow SS Neutrophils/100 WBC (Bld) 75.0 % Normal 37.0 - 80.0 % AO Workflow SS Platelet mean volume (Bld) [Entitic vol] 8.6 fL Normal 7.4 - 10.4 fL AO Workflow SS Platelets (Bld) [#/Vol] 290 103/mcL Normal 130 - 400 10^3/mcL AO Workflow SS Potassium [Moles/Vol] 4.2 mmol/L Normal 3.5 - 5.1 mmol/L AO ADM SS Protein [Mass/Vol] 7.5 G/dL Normal 6.4 - 8.2 G/dL AO ADM SS RBC (Bld) [#/Vol] 3.50 106/mcL Low 4.20 - 5.4 0 10^6/mcL AO Workflow SS Sodium [Moles/Vol] 138 mmol/L Normal 136 - 145 mmol/L AO ADM SS Urea nitrogen [Mass/Vol] 13 mg/dL Normal 7 - 18 mg/dL AO ADM SS Urea nitrogen/Creatinine [Mass ratio] 9 ratio Normal 7 - 27 ratio AO ADM SS WBC (Bld) [#/Vol] 9.9 103/mcL Normal 4.6 - 10.8 10^3/mcL AO Workflow SS LABORATORYOrdered By: Inez Kaufman on 01-23-2023 Appearance (U) Cloudy *ABN* (01/23/23 9:46 AM) Invalid Interpretation Code Clear AO Auto Urine SS Bacteria LM.HPF (Urine sed) [#/Area] 1 /[HPF] Invalid Interpretation Code AO Auto Urine SS Bilirubin Ql (U) Negative (01/23/23 9:46 AM) Normal Negative AO Auto Urine SS Color (U) Yellow (01/23/23 9:46 AM) Normal AO Auto Urine SS Crystals.amorphous LM.HPF (Urine sed) [#/Area] Trace /HPF Normal AO Auto Urine SS Glucose Test strip (U) [Mass/Vol] Negative Normal Negative AO Auto Urine SS Hemoglobin Auto test strip (U) [Mass/Vol] Trace *ABN* (01/23/23 9:46 AM) Invalid Interpretation Code Negative AO Auto Urine SS Ketones Ql (U) Negative Normal Negative AO Auto Ur ine SS UA Leuk Est Small *ABN* (01/23/23 9:46 AM) Invalid Interpretation Code Negative AO Auto Urine SS UA Nitrite Negative (01/23/23 9:46 AM) Normal Negative AO Auto Urine SS UA pH 6.5 (01/23/23 9:46 AM) Normal 5.0 - 8.0 AO Auto Urine SS UA Protein Negative Normal Negative AO Auto Urine SS UA RBC 0-5 /HPF Invalid Interpretation Code None Seen AO Auto Urine SS UA Spec Grav 1.015 (01/23/23 9:46 AM) Normal 1.015-1.025 AO Auto Urine SS UA Specimen Type Clean Catch (01/23/23 9:46 AM) Normal AO Auto Urine SS UA Squam Epithelial 0-5 /HPF Invalid Interpretation Code None Seen AO Auto Urine SS UA Urobilinogen 0.2 E.U./dL Normal 0.2-1.0 AO Auto Urine SS WBC LM.HPF (Urine sed) [#/Area] 5-10 /HPF Invalid Interpretation Code None Seen AO Auto Urine SS LIPon 01-23-2023 Lipase Level 80 U/L High 16-77 [facility] ([place]) Comment on above: Performed By: #### M DW, HFP, LIP, ADIFF, GFR, BMP, CBC, ANEU ####Johny [address] [place], [place] [address] UAon 01-23-2023 Color (U) Yellow Normal [facility] ([place]) Comment on above: Performed By: #### U AMICAO, UA ####Johny [address] [place], [place] [address] Glucose (U) [Mass/Vol] Negative Normal Negative [facility] ([place] Comment on above: Performed By: #### U AMICAO, UA ####Johny [address] [place], [place] [address] Ketones Ql (U) Negative Normal Negative [facility] ([place]) Comment on above: Performed By: #### U AMICAO, UA ####Johny [address] [place], [place] [address] UA Appear Cloudy Abnormal Clear [facility] ([place] Comment on above: Performed By: #### U AMICAO, UA ####Johny [address] [place], [place] [address] UA Blood Trace Abnormal Negative [facility] ([place]) Comment on above: Performed By: #### U AMICAO, UA ####Johny [address] [place] [id number] UA Leuk Est Small Abnormal Negative [facility] ([place]) Comment on above: Performed By: #### U AMICAO, UA ####Johny [address] [place] [address] UA Nitrite Negative Normal Negative [facility] ([place]) Comment on above: Performed By: #### U AMICAO, UA ####Johny [address] [place] [address] UA pH 6.5 Normal 5.0 - 8.0 [facility] ([place]) Comment on above: Performed By: #### U AMICAO, UA ####Johny [address] [place] [address] UA Protein Negative Normal Negative [facility] ([place]) Comment on above: Performed By: #### U AMICAO, UA ####Johny [address] [place] [address] UA Spec Grav 1.015 Normal 1.015-1.025 [facility] ([place]) Comment on above: Performed By: #### U AMICAO, UA ####Johny [address] [place] [address] UA Specimen Type Clean Catch Normal [facility] ([place]) Comment on above: Performed By: #### U AMICAO, UA ####Johny [address] [place] [address] UA Urobilinogen 0.2 E.U./dL Normal 0.2-1.0 [facility] ([place]) Comment on above: Performed By: #### U AMICAO, UA ####Johny [address] [place] [address] Urobilinogen (U) [Mass/Vol] Negative Normal Negative [facility] ([place]) Comment on above: Performed By: #### U MIMI RICCI ####Johny [address] [place], [place] [address] XR ANKLE AND FOOT 6 VIEWS LE FTon 01-23-2023 XR ANKLE AND FOOT 6 VIEWS LEFT Normal [facility] ([place]) Basic metabolic 2000 panelon 01-18-2023 Anion gap [Moles/Vol] 11 mmol/L 9 - 18 mmol/L [facility] Calcium [Mass/Vol] 9.4 mg/dL 8.5 - 10. 2 mg/dL [facility] Chloride [Moles/Vol] 105 mmol/L 97 - 10 5 mmol/L [facility] CO2 [Moles/Vol] 23 mmol/L 22 - 30 mmol/L [facility] Creatinine [Mass/Vol] 1.08 mg/dL High 0.58 - 0.96 mg/dL [facility] Estimated Glomerular Filtration Rate 62 mL/min/1.73m >=60 mL/min/1.73m [facility] Glucose [Mass/Vol] 116 mg/dL High 74 - 99 mg/dL [facility] Potassium [Moles/Vol] 3.7 mmol/L 3.7 - 5.1 mmol/L [facility] Sodium [Moles/Vol] 139 mmol/L 136 - 144 mmol/L [facility] Urea nitrogen [Mass/Vol] 10 mg/dL 7 - 21 mg/dL [facility] Anion gap [Moles/Vol] 11 mmol/L Normal 9-18 [facility] Comment on above: Order Comment: Speci men Type: BLOOD SPECIMENOrdering Facility: [facility] Address: [address] [place] [address] Performed By: #### 2 4321-2 ####[facility] [id number] [place] [address] [place] Calcium [Mass/Vol] 9.4 mg/dL Normal 8.5-10.2 [facility] Comment on above: Order Comment: Speci men Type: BLOOD SPECIMENOrdering Facility: [facility] Address: [address] [place] [address] Performed By: #### 2 4321-2 ####[facility] MILLWNCLIA [id number] [place] [address] [place] Chloride [Moles/Vol] 105 mmol/L Normal 97-105 [facility] Comment on above: Order Comment: Speci men Type: BLOOD SPECIMENOrdering Facility: [facility] Address: [address] [place] [address] Performed By: #### 2 4321-2 ####[facility] [id number] [place] [address] [place] CO2 [Moles/Vol] 23 mmol/L Normal 22-30 [facility] Comment on above: Order Comment: Speci men Type: BLOOD SPECIMENOrdering Facility: [facility] Address: [address] [place] [address] Performed By: #### 2 4321-2 ####[facility] [id number] [place] [address] [place] Creatinine [Mass/Vol] 1.08 mg/dL High 0.58-0.96 [facility] Comment on above: Order Comment: Speci men Type: BLOOD SPECIMENOrdering Facility: [facility] Address: [address] [place] [address] Performed By: #### 2 4321-2 ####[facility] [id number] [address] Creatinine and Glomerular filtration rate.predicted panel (S/P/Bld) 62 mL/min/1.73m??? Normal >=60 [facility] Comment on above: Order Comment: Speci men Type: BLOOD SPECIMENOrdering Facility: [facility] Address: [address] [place] [address] Result Comment: Anita mated Glomerular Filtration Rate (eGFR) is calculated using the 2020 CKD-EPI creatinine equation. This equation utilizes serum creatinine, sex, and age as parameters. The creatinine assay has traceable calibration to isotope dilution-mass spectrometry. Refer to KDIGO guidelines for clinical interpretation. In patients with unstable renal function, e.g. those with acute kidney injury, the eGFR may not accurately reflect actual GFR. Performed By: #### 2 4321-2 ####[facility] RAMONATOWNCLIA [id number] [place] [address] [place] Glucose [Mass/Vol] 116 mg/dL High 74-99 [facility] Comment on above: Order Comment: Speci men Type: BLOOD SPECIMENOrdering Facility: [facility] Address: [address] [place] [address] Result Comment: The [place] [employer] (ADA) provides guidance for cutoff values for fasting glucose and random glucose. The ADA defines fasting as no caloric intake for at least 8 hours. Fasting plasma glucose results between 100 to 125 mg/dL indicate increased risk for diabetes (prediabetes). Fasting plasma glucose results greater than or equal to 126 mg/dL meet the criteria for diagnosis of diabetes. In the absence of unequivocal hyperglycemia, results should be confirmed by repeat testing. In a patient with classic symptoms of hyperglycemia or hyperglycemic crisis, random plasma glucose results greater than or equal to 200 mg/dL meet the criteria for diagnosis of diabetes. Reference: Standards of Medical Care in Diabetes 2016, [place] [employer]. Diabetes Care. 2016.39(Suppl 1). Performed By: #### 2 4321-2 ####[facility] [id number] [place] [address] [place] Potassium [Moles/Vol] 3.7 mmol/L Normal 3.7-5.1 [facility] Comment on above: Order Comment: Franciscoi men Type: BLOOD SPECIMENOrdering Facility: [facility] Address: [address] [place] [id number] Performed By: #### 2 4321-2 ####[facility] [id number] [place] [address] [place] Sodium [Moles/Vol] 139 mmol/L Normal 136-144 [facility] Comment on above: Order Comment: Speci men Type: BLOOD SPECIMENOrdering Facility: [facility] Address: Aniyah GUTIERREZLance [place] [id number] Performed By: #### 2 4321-2 ####[facility] NICOLE FERNANDEZ [id number] [address] Urea nitrogen [Mass/Vol] 10 mg/dL Normal 7-21 [facility] Comment on above: Order Comment: Speci men Type: BLOOD SPECIMENOrdering Facility: [facility] Address: [address] [place] [id number] Performed By: #### 2 4321-2 ####[facility] NICOLE FERNANDEZ [id number] [address] [facility] CNOVon 01-18-2023 CNOV Office Visit (UCWSTR ) KAMALA GRAY ([id number]) 1970 F Date Time Provider Department 01/18/23 7:30 AM SATNAM RODRIGUEZ RUST During your visit today, we recorded the following information about you: Temperature Pulse Respiration Blood pressure 96.8 degrees 94/minute 16/minute 132/80 Weight 130.2 kg Satnam Rodriguez APRN.WRAPPING CLERK 01/18/2023 8:15 AM Signed Subjective HPI HPI Kamala L Isaac is [...] s/s. - BASIC METABOLIC PNL Satnam Rodriguez APRN.Satnam Gonzalez APRN.CNP 01/18/2023 8:00 AM Signed ASSESSMENT/PLAN: 1. Leg cramps - ICD9: 729.82, ICD10: R25.2 If labs ok I will order magnesium Follow up with primary care provider Urgent follow up for worsening symptoms. - BASIC METABOLIC PNL Satnam Rodriguez APRN.CNP 01/18/2023 10:48 AM Signed Addended by: SATNAM RODRIGUEZ on: 01/18/2023 10:48 AM Modules accepted: Orders Allergies As of Date: 01/18/2023 Noted Allergy Reaction HYDROCHLOROTHIAZIDE 09/28/2019 16 - Unknown NAPROXEN 11/05/2018 11 - Vomiting ASA (SALICYLATES) 12/21/2007 Date Reviewed: 01/18/2023 Reviewed by: Nessa Montes - Fully Assessed Reason for Visit: Leg Cramps [1739] Cmt: x last night (more content not included)... Normal [facility] Saeed 01-18-2023 CNPN Telephone (RUST) KAMALA GRAY ([id number]) 1970 F Date Time Provider Department 01/18/23 SATNAM RODRIGUEZ RUST During your visit today, we recorded the following information about you: Satnam Rodriguez APRN.WRAPPING CLERK 01/18/2023 10:47 AM Signed Please notify that lab was fine. Will send magnesium to pharmacy. Keep f/u with pcp. Nessa Montes 01/18/2023 11:48 AM Signed Patient given results and verbalized understanding of instructions given. Nessa Montes Allergies As of Date: 01/18/2023 Noted Allergy Reaction HYDROCHLOROTHIAZIDE 09/28/2019 16 - Unknown NAPROXEN 11/05/2018 11 - Vomiting ASA (SALICYLATES) 12/21/2007 Date Reviewed: 01/18/2023 Reviewed by: Nessa Montes - Fully Assessed Reason for Visit: Results [95] Prescriptions as of 01/18/2023 - magnesium oxide 200 mg magnesium tab Take 1 tablet by mouth daily at bedtime. - atogepant (QULIPTA) 30 mg tablet Take by mouth. - budesonide-formoterol (SYMBICORT) 160-4.5 mcg/actuation inhaler Inhale 2 Puffs as instructed. - fremanezumab-vfrm (AJOVY AUTOINJECTOR) 225 mg/1.5 mL auto-injector Inject 225 mg subcutaneously once every month. Do not shake. - benzonatate (TESSALON PERLES) 100 mg capsule Take 2 capsules by mouth three times daily as needed. - nystatin (MYCOSTATIN) powder Apply 1 application to affected area three times daily. - ondansetron orally disintegrating (ZOFRAN ODT) 4 mg disintegrating tablet Take 1 tablet by mouth every 6 hours as needed for nausea/vomiting. - guaiFENesin (MUCINEX FAST-MAX CHEST-CONGEST) 100 mg/5 mL syrup Take 20 mL by mouth every 4 hours as needed. - megestrol (MEGACE) 40 mg tablet Take 40 mg by mouth once daily. - TRELEGY ELLIPTA 100-62.5-25 mcg INHALE 1 PUFF DAILY with good oral care - levothyroxine (SYNTHROID) 300 mcg tablet Take by mouth. Not taking - acetaminophen(TYLENOL 325 MG TAB) Problem List As Of Date 01/18/2023 Noted Resolved HYPOTHYROIDISM NOS [E03.9] 12/21/2007 Encounter Status:Closed by NESSA MONTES on 01/18/23 [facility] CNOVon 01-17-2023 CNOV Office Visit (UCWSTR ) KAMALA GRAY ([id number]) 1970 F Date Time Provider Department 01/17/23 9:45 AM WHITLEY HSIEH RUST During your visit today, we recorded the following information about you: Temperature Pulse Respiration Blood pressure 96.9 degrees 82/minute 18/minute 142/88 Weight 129.3 kg Whitley Hsieh APRN.WRAPPING CLERK 01/17/2023 10:21 AM Signed Subjective Headache Pertinent negatives include no fever. [...] Discussed expected course of illness Whitley Hsieh APRN.Whitley Hopkins APRN.CNP 01/17/2023 10:21 AM Addendum ASSESSMENT/PLAN: 1. Headache, unspecified headache type - [...] Discussed expected course of illness Whitley Hsieh (more content not included)... Normal [facility] .Auto Diffon 01-10-2023 Basophil, Absolute 0.1 10 3/mcL Normal 0.0-0.2 [facility] ([place]) Comment on above: Performed By: #### B MP, ANEU, MDW, TROPHS, GFR, ADIFF, CBC ####Johny [address] [place], [place] [address] Basophils/100 WBC (Bld) 1.0 % Normal 0.0-2.5 [facility] ([place]) Comment on above: Performed By: #### B HARSHAD MARKS MDW, TROPHS, GFR, ADIFF, CBC ####[address] [place], [place] [address] Eosinophil, Absolute 0.6 10 3/mcL High 0.0-0.4 [facility] ([place]) Comment on above: Performed By: #### B SELINA, JUAN CARLOS PATRICIA, TROPHS, GFR, ADIFF, CBC ####[address] [place], [place] [address] Eosinophils/100 WBC (Bld) 4.6 % Normal 0.0-7.0 [facility] ([place]) Comment on above: Performed By: #### B HARSHAD MARKS MDW, TROPHS, GFR, ADIFF, CBC ####[address] [place], [place] [address] Lymphocyte, Absolute 1.5 10 3/mcL Normal 0.8-3.9 [facility] ([place]) Comment on above: Performed By: #### B HARSHAD MARKS MDW, TROPHS, GFR, ADIFF, CBC ####[address] [place], [place] [address] Lymphocytes/100 WBC (Bld) 11.8 % Normal 10.0-50.0 [facility] ([place]) Comment on above: Performed By: #### B HARSHAD MARKS MDW, TROPHS, GFR, ADIFF, CBC ####[address] [place], [place] [address] Monocyte, Absolute 0.7 10 3/mcL Normal 0.2-1.0 [facility] ([place]) Comment on above: Performed By: #### B HARSHAD MARKS MDW, TROPHS, GFR, ADIFF, CBC ####[address] [place], [place] [address] Monocytes/100 WBC (Bld) 5.9 % Normal 1.7-13.0 [facility] ([place]) Comment on above: Performed By: #### B HARSHAD MARKS MDW, TROPHS, GFR, ADIFF, CBC ####Johny [address] [place], [place] [address] Neutrophils/100 WBC (Bld) 76.7 % Normal 37.0-80.0 [facility] ([place]) Comment on above: Performed By: #### B HARSHAD MARKS MDW, TROPHS, GFR, ADIFF, CBC ####Johny [address] [place], [place] [address] .GFRon 01-10-2023 GFR 52 ml/min/1.73sqm Normal [facility] ([place]) Comment on above: Result Comment: GFR Population mean for , Non- Americans Ages 20-29 = 116 mL/min/1.73 sq.m. Ages 30-39 = 107 mL/min/1.73 sq.m. Ages 40-49 = 99 mL/min/1.73 sq.m. Ages 50-59 = 93 mL/min/1.73 sq.m. Ages 60-69 = 85 mL/min/1.73 sq.m. Ages 70+ = 75 mL/min/1.73 sq.m.Chronic Kidney Disease: Less than 60 mL/min/1.73 square metersEnd Stage Renal Disease: Less than 15 mL/min/1.73 square meters Performed By: #### B HARSHAD MARKS MDW, TROPHKenroy, GFR, ADIFF, CBC ####[address] [place], [place] [address] GFR Non- 43 ml/min/1.73sqm Normal [facility] ([place]) Comment on above: Result Comment: GFR Population mean for , Non- Americans Ages 20-29 = 116 mL/min/1.73 sq.m. Ages 30-39 = 107 mL/min/1.73 sq.m. Ages 40-49 = 99 mL/min/1.73 sq.m. Ages 50-59 = 93 mL/min/1.73 sq.m. Ages 60-69 = 85 mL/min/1.73 sq.m. Ages 70+ = 75 mL/min/1.73 sq.m.Chronic Kidney Disease: Less than 60 mL/min/1.73 square metersEnd Stage Renal Disease: Less than 15 mL/min/1.73 square meters Performed By: #### B HARSHAD MARKS MDW, TROPHS, GFR, ADIFF, CBC ####Johny [address] [place], [place] [address] .MDWon 01-10-2023 Monocyte Distribution Width 17.88 Normal 0.00-20.00 [facility] ([place]) Comment on above: Result Comment: For ED adult patients suspected of sepsis, MDW<=20.0 does not rule out sepsis or risk of sepsis Performed By: #### B HARSHAD MARKS MDW, TROPHS, GFR, ADIFF, CBC ####[address] [place], [place] [address] .NEUABSon 01-10-2023 Neutrophil, Absolute 9.8 10 3/mcL High 2.9-6.2 [facility] [place]) Comment on above: Performed By: #### B HARSHAD MARKS MDW, TROPHS, GFR, ADIFF, CBC ####[address] [place], [place] [address] BMPon 01-10-2023 BUN/Creatinine Ratio 5 ratio Low 7-27 [facility] ([place]) Comment on above: Performed By: #### B HARSHAD MARKS MDW, TROPHS, GFR, ADIFF, CBC ####Johny [address] [place], [place] [address] Calcium [Mass/Vol] 9.6 mg/dL Normal 8.4-10.2 Replaced by [facility] ([place]) Comment on above: Performed By: #### B HARSHAD MARKS MDW, TROPHS, GFR, ADIFF, CBC ####[address] [place], [place] [address] Chloride [Moles/Vol] 101 mmol/L Normal 98-107 [facility] ([place]) Comment on above: Performed By: #### B HARSHAD MARKS MDW, TROPHS, GFR, ADIFF, CBC ####[address] [place], [place] [address] CO2 [Moles/Vol] 27 mmol/L Normal 22-29 [facility] ([place]) Comment on above: Performed By: #### B SELINA, JUAN CARLOS PATRICIA, TROPHS, GFR, ADIFF, CBC ####[address] [place], [place] [address] Creatinine [Mass/Vol] 1.31 mg/dL High 0.55-1.02 [facility] ([place]) Comment on above: Performed By: #### B SELINA, JUAN CARLOS PATRICIA, TROPHS, GFR, ADIFF, CBC ####[address] [place], [place] [address] Electrolyte Balance 13.0 mEq/L Normal 4.0-15.0 [facility] ([place]) Comment on above: Performed By: #### B SELINA, JUAN CARLOS PATRICIA, TROPHS, GFR, ADIFF, CBC ####[address] [place], [place] [address] Glucose [Mass/Vol] 129 mg/dL High 70-105 Replaced by [facility] ([place]) Comment on above: Performed By: #### B SELINA, JUAN CARLOS PATRICIA, TROPHS, GFR, ADIFF, CBC ####[address] [place], [place] [address] Potassium [Moles/Vol] 3.7 mmol/L Normal 3.5-5.1 [facility] ([place]) Comment on above: Performed By: #### B SELINA, JUAN CARLOS PATRICIA, TROPHS, GFR, ADIFF, CBC ####[address] [place], [place] [address] Sodium [Moles/Vol] 141 mmol/L Normal 136-145 Replaced by [facility] ([place]) Comment on above: Performed By: #### B SELINA, JUAN CARLOS PATRICIA, TROPHS, GFR, ADIFF, CBC ####[address] [place], [place] [address] Urea nitrogen [Mass/Vol] 7 mg/dL Normal 7-18 [facility] ([place]) Comment on above: Performed By: #### B SELINA, JUAN CARLOS PATRICIA, TROPHS, GFR, ADIFF, CBC ####[address] [place], [place] [address] CBCon 01-10-2023 Erythrocyte distribution width (RBC) [Ratio] 19.4 % High 11.5-14.5 [facility] ([place]) Comment on above: Performed By: #### B HARSHAD MARKS MDW, TROPHS, GFR, ADIFF, CBC ####John[address] [place], [place] [address] Hematocrit (Bld) [Volume fraction] 39.3 % Normal 37.0-47.0 [facility] ([place]) Comment on above: Performed By: #### B HARSHAD MARKS MDW, TROPHS, GFR, ADIFF, CBC ####[address] [place], [place] [address] Hgb 13.1 G/dL Normal 12.0-16.0 [facility] ([place]) Comment on above: Performed By: #### B HARSHAD MARKS MDW, BLAZES, GFR, ADIFF, CBC ####[address] [place], [place] [address] MCH (RBC) [Entitic mass] 32.9 pg High 27.0-31.2 [facility] ([place]) Comment on above: Performed By: #### B HARSHAD MARKS MDW, DARRELL, GFR, ADIFF, CBC ####[address] [place], [place] [address] MCHC 33.4 G/dL Normal 33.0-37.0 [facility] ([place]) Comment on above: Performed By: #### B HARSHAD MARKS MDW, DARRELL, GFR, ADIFF, CBC ####[address] [place], [place] [address] MCV (RBC) [Entitic vol] 98.4 fL High 80.0-94.0 [facility] ([place]) Comment on above: Performed By: #### B HARSHAD MARKS MDW, TROPHS, GFR, ADIFF, CBC ####[address] [place], [place] [address] Platelet 419 10 3/mcL High 130-400 [facility] ([place]) Comment on above: Performed By: #### B HARSHAD MARKS MDW, TROPHS, GFR, ADIFF, CBC ####Johny [address] [place], [place] [address] Platelet mean volume (Bld) [Entitic vol] 7.2 fL Low 7.4-10.4 [facility] ([place]) Comment on above: Performed By: #### B SELINA, JUAN CARLOS PATRICIA, TROPHS, GFR, ADIFF, CBC ####Johny [address] [place], [place] [address] RBC 3.99 10 6/mcL Low 4.20-5.40 [facility] ([place]) Comment on above: Performed By: #### B SELINA, JUAN CARLOS PATRICIA, TROPHS, GFR, ADIFF, CBC ####[address] [place], [place] [address] WBC 12.7 10 3/mcL High 4.6-10.8 [facility] ([place]) Comment on above: Performed By: #### B SELINA, JUAN CARLOS PATRICIA, TROPHS, GFR, ADIFF, CBC ####[address] [place], [place] [address] LABORATORYOrdered By: SYSTEM SYSTEM on 01-10-2023 Basophil, Absolute 0.1 103/mcL Invalid Interpretation Code 0.0 - 0.2 10^3/mcL AO Workflow SS Basophils/100 WBC (Bld) 1.0 % Invalid Interpretation Code 0.0 - 2.5 % AO Workflow SS Calcium [Mass/Vol] 9.6 mg/dL Invalid Interpretation Code 8.4 - 10.2 mg/dL AO ADM SS Chloride [Moles/Vol] 101 mmol/L Invalid Interpretation Code 98 - 107 mmol/L AO ADM SS CO2 [Moles/Vol] 27 mmol/L Invalid Interpretation Code 22 - 29 mmol/L AO ADM SS Creatinine [Mass/Vol] 1.31 mg/dL Invalid Interpretation Code 0.55 - 1.02 mg/dL AO ADM SS Electrolyte Balance 13.0 mEq/L Invalid Interpretation Code 4.0 - 15.0 mEq/L AO ADM SS Eosinophil, Absolute 0.6 103/mcL Invalid Interpretation Code 0.0 - 0.4 10^3/mcL AO Workflow SS Eosinophils/100 WBC (Bld) 4.6 % Invalid Interpretation Code 0.0 - 7.0 % AO Workflow SS Erythrocyte distribution width (RBC) [Ratio] 19.4 % Invalid Interpretation Code 11.5 - 14.5 % AO Workflow SS GFR/1.73 sq M.predicted among blacks MDRD (S/P/Bld) [Vol rate/Area] 52 ml/min/1.73sqm Invalid Interpretation Code AO Chemistry S Comment on above: Interpretive Data: GFR Population mean for , Non- Americans Ages 20-29 = 116 mL/min/1.73 sq.m. Ages 30-39 = 107 mL/min/1.73 sq.m. Ages 40-49 = 99 mL/min/1.73 sq.m. Ages 50-59 = 93 mL/min/1.73 sq.m. Ages 60-69 = 85 mL/min/1.73 sq.m. Ages 70+ = 75 mL/min/1.73 sq.m. Chronic Kidney Disease: Less than 60 mL/min/1.73 square meters End Stage Renal Disease: Less than 15 mL/min/1.73 square meters GFR/1.73 sq M.predicted among non-blacks MDRD (S/P/Bld) [Vol rate/Area] 43 ml/min/1.73sqm Invalid Interpretation Code AO Chemistry S Comment on above: Interpretive Data: GFR Population mean for , Non- Americans Ages 20-29 = 116 mL/min/1.73 sq.m. Ages 30-39 = 107 mL/min/1.73 sq.m. Ages 40-49 = 99 mL/min/1.73 sq.m. Ages 50-59 = 93 mL/min/1.73 sq.m. Ages 60-69 = 85 mL/min/1.73 sq.m. Ages 70+ = 75 mL/min/1.73 sq.m. Chronic Kidney Disease: Less than 60 mL/min/1.73 square meters End Stage Renal Disease: Less than 15 mL/min/1.73 square meters Glucose [Mass/Vol] 129 mg/dL Invalid Interpretation Code 70 - 105 mg/dL AO ADM SS Hematocrit (Bld) [Volume fraction] 39.3 % Invalid Interpretation Code 37.0 - 47.0 % AO Workflow SS Hemoglobin (Bld) [Mass/Vol] 13.1 G/dL Invalid Interpretation Code 12.0 - 16.0 G/dL AO Workflow SS Lymphocyte, Absolute 1.5 103/mcL Invalid Interpretation Code 0.8 - 3.9 10^3/mcL AO Workflow SS Lymphocytes/100 WBC (Bld) 11.8 % Invalid Interpretation Code 10.0 - 50.0 % AO Workflow SS MCH (RBC) [Entitic mass] 32.9 pg Invalid Interpretation Code 27.0 - 31.2 pg AO Workflow SS MCHC 33.4 G/dL Invalid Interpretation Code 33.0 - 37.0 G/dL AO Workflow SS MCV (RBC) [Entitic vol] 98.4 fL Invalid Interpretation Code 80.0 - 94.0 fL AO Workflow SS Monocyte distribution width Auto (Bld) [Entitic vol] 17.88 1 Invalid Interpretation Code 0.00 - 20.00 AO Workflow SS Comment on above: Result Comment: For ED adult patients suspected of sepsis, MDW<=20.0 does not rule out sepsis or risk of sepsis Monocyte, Absolute 0.7 103/mcL Invalid Interpretation Code 0.2 - 1.0 10^3/mcL AO Workflow SS Monocytes/100 WBC (Bld) 5.9 % Invalid Interpretation Code 1.7 - 13.0 % AO Workflow SS Neutrophil, Absolute 9.8 103/mcL Invalid Interpretation Code 2.9 - 6.2 10^3/mcL AO Workflow SS Neutrophils/100 WBC (Bld) 76.7 % Invalid Interpretation Code 37.0 - 80.0 % AO Workflow SS Platelet mean volume (Bld) [Entitic vol] 7.2 fL Invalid Interpretation Code 7.4 - 10.4 fL AO Workflow SS Platelets (Bld) [#/Vol] 419 103/mcL Invalid Interpretation Code 130 - 400 10^3/mcL AO Workflow SS Potassium [Moles/Vol] 3.7 mmol/L Invalid Interpretation Code 3.5 - 5.1 mmol/L AO ADM SS RBC (Bld) [#/Vol] 3.99 106/mcL Invalid Interpretation Code 4.20 - 5.40 10^6/mcL AO Workflow SS Sodium [Moles/Vol] 141 mmol/L Invalid Interpretation Code 136 - 145 mmol/L AO ADM SS Troponin I.cardiac DL <= 0.01 ng/mL [Mass/Vol] 7.3 ng/L Invalid Interpretation Code 0.0 - 51.4 ng/L AO ADM SS Urea nitrogen [Mass/Vol] 7 mg/dL Invalid Interpretation Code 7 - 18 mg/dL AO ADM SS Urea nitrogen/Creatinine [Mass ratio] 5 ratio Invalid Interpretation Code 7 - 27 ratio AO ADM SS WBC (Bld) [#/Vol] 12.7 103/mcL Invalid Interpretation Code 4.6 - 10.8 10^3/mcL AO Workflow SS TROPHSon 01-10-2023 Troponin I High Sensitivity 7.3 ng/L Normal 0.0-51.4 [facility] ([place]) Comment on above: Performed By: #### B MP, HARSHAD, W, TROPHS, GFR, ADIFF, CBC ####Johny [address] [place], [place] [address] XR CHEST 1 VIEWon 01-10-2023 XR CHEST 1 VIEW Normal [facility] ([place]) CURon 12-27-2022 CUR Normal [facility]) TROPHSon 12-25-2022 Troponin I High Sensitivity 6.6 ng/L Normal 0.0-51.4 [facility] ([place]) Comment on above: Performed By: #### T ROPHS ####[address] [place], [place] [address] .Auto Diffon 12-24-2022 Basophil, Absolute 0.2 10 3/mcL Normal 0.0-0.2 [facility] ([place]) Comment on above: Performed By: #### M DW, LIP, CBC, CMP, GFR, ADIFF, TROPHS, ANEU ####[address] [place], [place] [address] Basophils/100 WBC (Bld) 1.0 % Normal 0.0-2.5 [facility] ([place]) Comment on above: Performed By: #### M DW, LIP, CBC, CMP, GFR, ADIFF, TROPHS, ANEU ####[address] [place], [place] [address] Eosinophil, Absolute 0.1 10 3/mcL Normal 0.0-0.4 [facility] ([place]) Comment on above: Performed By: #### M DW, LIP, CBC, CMP, GFR, ADIFF, TROPHS, ANEU ####[address] [place], [place] [address] Eosinophils/100 WBC (Bld) 1.0 % Normal 0.0-7.0 [facility] ([place]) Comment on above: Performed By: #### M DW, LIP, CBC, CMP, GFR, ADIFF, TROPHS, ANEU ####Johny [address] [place], [place] [address] Lymphocyte, Absolute 2.0 10 3/mcL Normal 0.8-3.9 [facility] ([place]) Comment on above: Performed By: #### M DW, LIP, CBC, CMP, GFR, ADIFF, TROPHS, ANEU ####[address] [place], [place] [address] Lymphocytes/100 WBC (Bld) 13.3 % Normal 10.0-50.0 [facility] ([place]) Comment on above: Performed By: #### M DW, LIP, CBC, CMP, GFR, ADIFF, TROPHS, ANEU ####[address] [place], [place] [address] Monocyte, Absolute 1.2 10 3/mcL High 0.2-1.0 [facility] ([place]) Comment on above: Performed By: #### M DW, LIP, CBC, CMP, GFR, ADIFF, TROPHS, ANEU ####Johny [address] [place], [place] [address] Monocytes/100 WBC (Bld) 7.9 % Normal 1.7-13.0 [facility] ([place]) Comment on above: Performed By: #### M DW, LIP, CBC, CMP, GFR, ADIFF, TROPHS, ANEU ####Johny [address] [place], [place] [address] Neutrophils/100 WBC (Bld) 76.8 % Normal 37.0-80.0 [facility] ([place]) Comment on above: Performed By: #### M DW, LIP, CBC, CMP, GFR, ADIFF, TROPHS, ANEU ####Johny [address] [place], [place] [address] .GFRon 12-24-2022 GFR 45 ml/min/1.73sqm Normal [facility] ([place]) Comment on above: Result Comment: GFR Population mean for , Non- Americans Ages 20-29 = 116 mL/min/1.73 sq.m. Ages 30-39 = 107 mL/min/1.73 sq.m. Ages 40-49 = 99 mL/min/1.73 sq.m. Ages 50-59 = 93 mL/min/1.73 sq.m. Ages 60-69 = 85 mL/min/1.73 sq.m. Ages 70+ = 75 mL/min/1.73 sq.m.Chronic Kidney Disease: Less than 60 mL/min/1.73 square metersEnd Stage Renal Disease: Less than 15 mL/min/1.73 square meters Performed By: #### M DW, LIP, CBC, CMP, GFR, ADIFF, TROPHS, ANEU ####[address] [place], [place] [address] GFR Non- 37 ml/min/1.73sqm Normal [facility] ([place]) Comment on above: Result Comment: GFR Population mean for , Non- Americans Ages 20-29 = 116 mL/min/1.73 sq.m. Ages 30-39 = 107 mL/min/1.73 sq.m. Ages 40-49 = 99 mL/min/1.73 sq.m. Ages 50-59 = 93 mL/min/1.73 sq.m. Ages 60-69 = 85 mL/min/1.73 sq.m. Ages 70+ = 75 mL/min/1.73 sq.m.Chronic Kidney Disease: Less than 60 mL/min/1.73 square metersEnd Stage Renal Disease: Less than 15 mL/min/1.73 square meters Performed By: #### M DW, LIP, CBC, CMP, GFR, ADIFF, TROPHS, ANEU ####[address] [place], [place] [address] .MDWon 12-24-2022 Monocyte Distribution Width 16.17 Normal 0.00-20.00 [facility] ([place]) Comment on above: Result Comment: For ED adult patients suspected of sepsis, MDW<=20.0 does not rule out sepsis or risk of sepsis Performed By: #### M DW, LIP, CBC, CMP, GFR, ADIFF, TROPHS, ANEU ####Johny [address] [place], [place] [address] .NEUABSon 12-24-2022 Neutrophil, Absolute 11.5 10 3/mcL High 2.9-6.2 [facility] ([place]) Comment on above: Performed By: #### M DW, LIP, CBC, CMP, GFR, ADIFF, TROPHS, ANEU ####[address] [place] [address] .Urinalysis Microscopic (AO) on 12-24-2022 UA Bacteria Trace Abnormal [facility] ([place]) Comment on above: Performed By: #### U A, UAMICAO ####Johny [address] [place] [address] UA Mucous Trace Normal [facility] ([place]) Comment on above: Performed By: #### U A, UAMICAO ####[address] [place] [address] UA RBC None Seen Normal None Seen [facility] ([place]) Comment on above: Performed By: #### U A, UAMICAO ####[address] [place] [address] UA Squam Epithelial 0-5 Abnormal None Seen [facility] ([place]) Comment on above: Performed By: #### U A, UAMICAO ####[address] [place] [address] UA WBC 0-5 Abnormal None Seen [facility] ([place]) Comment on above: Performed By: #### U A, UAMICAO ####[address] [place] [address] CBCon 12-24-2022 Erythrocyte distribution width (RBC) [Ratio] 18.9 % High 11.5-14.5 [facility] ([place]) Comment on above: Performed By: #### M DW, LIP, CBC, CMP, GFR, ADIFF, TROPHS, ANEU ####Johny [address] [place] [address] Hematocrit (Bld) [Volume fraction] 37.4 % Normal 37.0-47.0 [facility] ([place]) Comment on above: Performed By: #### M DW, LIP, CBC, CMP, GFR, ADIFF, TROPHS, ANEU ####Johny [address] [place], [place] [address] Hgb 12.3 G/dL Normal 12.0-16.0 [facility] ([place]) Comment on above: Performed By: #### M DW, LIP, CBC, CMP, GFR, ADIFF, TROPHS, ANEU ####Johny [address] [place], [place] [address] MCH (RBC) [Entitic mass] 32.4 pg High 27.0-31.2 [facility] ([place]) Comment on above: Performed By: #### M DW, LIP, CBC, CMP, GFR, ADIFF, TROPHS, ANEU ####[address] [place], [place] [address] MCHC 32.8 G/dL Low 33.0-37.0 [facility] ([place]) Comment on above: Performed By: #### M DW, LIP, CBC, CMP, GFR, ADIFF, TROPHS, ANEU ####Johny [address] [place], [place] [address] MCV (RBC) [Entitic vol] 98.8 fL High 80.0-94.0 [facility] ([place]) Comment on above: Performed By: #### M DW, LIP, CBC, CMP, GFR, ADIFF, TROPHS, ANEU ####Johny [address] [place], [place] [address] Platelet 437 10 3/mcL High 130-400 [facility] ([place]) Comment on above: Performed By: #### M DW, LIP, CBC, CMP, GFR, ADIFF, TROPHS, ANEU ####Johny [address] [place], [place] [address] Platelet mean volume (Bld) [Entitic vol] 7.7 fL Normal 7.4-10.4 [facility] ([place]) Comment on above: Performed By: #### M DW, LIP, CBC, CMP, GFR, ADIFF, TROPHS, ANEU ####Johny [address] [place], [place] [address] RBC 3.79 10 6/mcL Low 4.20-5.40 [facility] ([place]) Comment on above: Performed By: #### M DW, LIP, CBC, CMP, GFR, ADIFF, TROPHS, ANEU ####Johny [address] [place], [place] [address] WBC 15.0 10 3/mcL High 4.6-10.8 [facility] ([place]) Comment on above: Performed By: #### M DW, LIP, CBC, CMP, GFR, ADIFF, TROPHS, ANEU ####Johny [address] [place], [place] [address] CKon 12-24-2022 CK [Catalytic activity/Vol] 89 U/L Normal 26-192 [facility] ([place]) Comment on above: Performed By: #### C K ####Johny [address] [place], [place] [address] CMPon 12-24-2022 Albumin Level 4.1 G/dL Normal 3.5-5.0 [facility] ([place]) Comment on above: Performed By: #### M DW, LIP, CBC, CMP, GFR, ADIFF, TROPHS, ANEU ####[address] [place], [place] [address] Albumin/Globulin [Mass ratio] 1.0 {ratio} Low 1.1-2.5 [facility] ([place]) Comment on above: Performed By: #### M DW, LIP, CBC, CMP, GFR, ADIFF, TROPHS, ANEU ####Johny [address] [place], [place] [address] ALP [Catalytic activity/Vol] 131 U/L Normal 40-135 [facility] ([place]) Comment on above: Performed By: #### M DW, LIP, CBC, CMP, GFR, ADIFF, TROPHS, ANEU ####Johny [address] [place], [place] [address] ALT [Catalytic activity/Vol] 42 U/L Normal 14-59 [facility] ([place]) Comment on above: Performed By: #### M DW, LIP, CBC, CMP, GFR, ADIFF, TROPHS, ANEU ####[address] [place], [place] [address] AST [Catalytic activity/Vol] 61 U/L High 10-40 [facility] ([place]) Comment on above: Performed By: #### M DW, LIP, CBC, CMP, GFR, ADIFF, TROPHS, ANEU ####Johny [address] [place], [place] [address] Bili Total 0.4 mg/dL Normal 0.2-1.0 [facility] ([place]) Comment on above: Result Comment: Use of this assay is not recommended for patients undergoing treatment with eltrombopag due to the potential for falsely elevated results. Performed By: #### M DW, LIP, CBC, CMP, GFR, ADIFF, TROPHS, ANEU ####Johny [id number] [place], [place] [address] BUN/Creatinine Ratio 8 ratio Normal 7-27 [facility] ([place]) Comment on above: Performed By: #### M DW, LIP, CBC, CMP, GFR, ADIFF, TROPHS, ANEU ####John[id number] [place], [place] [address] Calcium [Mass/Vol] 9.4 mg/dL Normal 8.4-10.2 Replaced by [facility] ([place]) Comment on above: Performed By: #### M DW, LIP, CBC, CMP, GFR, ADIFF, TROPHS, ANEU ####Johny [id number] [place], [place] [address] Chloride [Moles/Vol] 101 mmol/L Normal 98-107 [facility] [facility] ([place]) Comment on above: Performed By: #### M DW, LIP, CBC, CMP, GFR, ADIFF, TROPHS, ANEU ####[id number] [place], [place] [address] CO2 [Moles/Vol] 28 mmol/L Normal 22-29 [facility] ([place]) Comment on above: Performed By: #### M DW, LIP, CBC, CMP, GFR, ADIFF, TROPHS, ANEU ####Johny [id number] [place], [place] [address] Creatinine [Mass/Vol] 1.49 mg/dL High 0.55-1.02 [facility] ([place]) Comment on above: Performed By: #### M DW, LIP, CBC, CMP, GFR, ADIFF, TROPHS, ANEU ####[address] [place], [place] [address] Electrolyte Balance 9.0 mEq/L Normal 4.0-15.0 Formerly [facility] ([place]) Comment on above: Performed By: #### M DW, LIP, CBC, CMP, GFR, ADIFF, TROPHS, ANEU ####[address] [place], [place] [address] Globulin 4.3 G/dL Normal [facility] ([place]) Comment on above: Performed By: #### M DW, LIP, CBC, CMP, GFR, ADIFF, TROPHS, ANEU ####Johny [address] [place], [place] [address] Glucose [Mass/Vol] 99 mg/dL Normal 70-105 Replaced by [facility] ([place]) Comment on above: Performed By: #### M DW, LIP, CBC, CMP, GFR, ADIFF, TROPHS, ANEU ####John[id number] [place], [place] [address] Potassium [Moles/Vol] 3.9 mmol/L Normal 3.5-5.1 [facility] ([place]) Comment on above: Performed By: #### M DW, LIP, CBC, CMP, GFR, ADIFF, TROPHS, ANEU ####[address] [place], [place] [address] Sodium [Moles/Vol] 138 mmol/L Normal 136-145 Replaced by [facility] [place]) Comment on above: Performed By: #### M DW, LIP, CBC, CMP, GFR, ADIFF, TROPHS, ANEU ####[address] [place], [place] [address] Total Protein 8.4 G/dL High 6.4-8.2 [facility] ([place]) Comment on above: Performed By: #### M DW, LIP, CBC, CMP, GFR, ADIFF, TROPHS, ANEU ####[id number] [place], [place] [address] Urea nitrogen [Mass/Vol] 12 mg/dL Normal 7-18 [facility] ([place]) Comment on above: Performed By: #### M DW, LIP, CBC, CMP, GFR, ADIFF, TROPHS, ANEU ####Johny [address] [place], [place] [address] CT ABD/PELVIS W/ IV CONTRAST ONLYon 12-24-2022 CT ABD/PELVIS W/ IV CONTRAST ONLY Normal [facility] ([place]) CT ANGIOGRAPHY CHEST W/CONTR Radha 12-24-2022 CT ANGIOGRAPHY CHEST W/CONTRAST Normal [facility]) LABORATORYOrdered By: SYSTEM SYSTEM on 12-24-2022 Troponin I.cardiac DL <= 0.01 ng/mL [Mass/Vol] 6.6 ng/L Invalid Interpretation Code 0.0 - 51.4 ng/L AO ADM SS CK [Catalytic activity/Vol] 89 U/L Invalid Interpretation Code 26 - 192 U/L AO ADM SS Troponin I.cardiac DL <= 0.01 ng/mL [Mass/Vol] 6.5 ng/L Invalid Interpretation Code 0.0 - 51.4 ng/L AO ADM SS Albumin BCP dye [Mass/Vol] 4.1 G/dL Invalid Interpretation Code 3.5 - 5.0 G/dL AO ADM SS Albumin/Globulin [Mass ratio] 1.0 {ratio} Invalid Interpretation Code 1.1 - 2.5 ratio AO ADM SS ALP [Catalytic activity/Vol] 131 U/L Invalid Interpretation Code 40 - 135 U/L AO ADM SS ALT With P-5'-P [Catalytic activity/Vol] 42 U/L Invalid Interpretation Code 14 - 59 U/L AO ADM SS AST With P-5'-P [Catalytic activity/Vol] 61 U/L Invalid Interpretation Code 10 - 40 U/L AO ADM SS Basophil, Absolute 0.2 103/mcL Invalid Interpretation Code 0.0 - 0.2 10^3/mcL AO Workflow SS Basophils/100 WBC (Bld) 1.0 % Invalid Interpretation Code 0.0 - 2.5 % AO Workflow SS Bilirubin [Mass/Vol] 0.4 mg/dL Invalid Interpretation Code 0.2 - 1.0 mg/dL AO ADM SS Comment on above: Interpretive Data: U se of this assay is not recommended for patients undergoing treatment with eltrombopag due to the potential for falsely elevated results. Calcium [Mass/Vol] 9.4 mg/dL Invalid Interpretation Code 8.4 - 10.2 mg/dL AO ADM SS Chloride [Moles/Vol] 101 mmol/L Invalid Interpretation Code 98 - 107 mmol/L AO ADM SS CO2 [Moles/Vol] 28 mmol/L Invalid Interpretation Code 22 - 29 mmol/L AO ADM SS Creatinine [Mass/Vol] 1.49 mg/dL Invalid Interpretation Code 0.55 - 1.02 mg/dL AO ADM SS Electrolyte Balance 9.0 mEq/L Invalid Interpretation Code 4.0 - 15.0 mEq/L AO ADM SS Eosinophil, Absolute 0.1 103/mcL Invalid Interpretation Code 0.0 - 0.4 10^3/mcL AO Workflow SS Eosinophils/100 WBC (Bld) 1.0 % Invalid Interpretation Code 0.0 - 7.0 % AO Workflow SS Erythrocyte distribution width (RBC) [Ratio] 18.9 % Invalid Interpretation Code 11.5 - 14.5 % AO Workflow SS GFR/1.73 sq M.predicted among blacks MDRD (S/P/Bld) [Vol rate/Area] 45 ml/min/1.73sqm Invalid Interpretation Code AO Chemistry S Comment on above: Interpretive Data: GFR Population mean for , Non- Americans Ages 20-29 = 116 mL/min/1.73 sq.m. Ages 30-39 = 107 mL/min/1.73 sq.m. Ages 40-49 = 99 mL/min/1.73 sq.m. Ages 50-59 = 93 mL/min/1.73 sq.m. Ages 60-69 = 85 mL/min/1.73 sq.m. Ages 70+ = 75 mL/min/1.73 sq.m. Chronic Kidney Disease: Less than 60 mL/min/1.73 square meters End Stage Renal Disease: Less than 15 mL/min/1.73 square meters GFR/1.73 sq M.predicted among non-blacks MDRD (S/P/Bld) [Vol rate/Area] 37 ml/min/1.73sqm Invalid Interpretation Code AO Chemistry S Comment on above: Interpretive Data: GFR Population mean for , Non- Americans Ages 20-29 = 116 mL/min/1.73 sq.m. Ages 30-39 = 107 mL/min/1.73 sq.m. Ages 40-49 = 99 mL/min/1.73 sq.m. Ages 50-59 = 93 mL/min/1.73 sq.m. Ages 60-69 = 85 mL/min/1.73 sq.m. Ages 70+ = 75 mL/min/1.73 sq.m. Chronic Kidney Disease: Less than 60 mL/min/1.73 square meters End Stage Renal Disease: Less than 15 mL/min/1.73 square meters Globulin 4.3 G/dL Invalid Interpretation Code AO ADM SS Glucose [Mass/Vol] 99 mg/dL Invalid Interpretation Code 70 - 105 mg/dL AO ADM SS Hematocrit (Bld) [Volume fraction] 37.4 % Invalid Interpretation Code 37.0 - 47.0 % AO Workflow SS Hemoglobin (Bld) [Mass/Vol] 12.3 G/dL Invalid Interpretation Code 12.0 - 16.0 G/dL AO Workflow SS Lipase [Catalytic activity/Vol] 65 U/L Invalid Interpretation Code 16 - 77 U/L AO ADM SS Lymphocyte, Absolute 2.0 103/mcL Invalid Interpretation Code 0.8 - 3.9 10^3/mcL AO Workflow SS Lymphocytes/100 WBC (Bld) 13.3 % Invalid Interpretation Code 10.0 - 50.0 % AO Workflow SS MCH (RBC) [Entitic mass] 32.4 pg Invalid Interpretation Code 27.0 - 31.2 pg AO Workflow SS MCHC 32.8 G/dL Invalid Interpretation Code 33.0 - 37.0 G/dL AO Workflow SS MCV (RBC) [Entitic vol] 98.8 fL Invalid Interpretation Code 80.0 - 94.0 fL AO Workflow SS Monocyte distribution width Auto (Bld) [Entitic vol] 16.17 1 Invalid Interpretation Code 0.00 - 20.00 AO Workflow SS Comment on above: Result Comment: For ED adult patients suspected of sepsis, MDW<=20.0 does not rule out sepsis or risk of sepsis Monocyte, Absolute 1.2 103/mcL Invalid Interpretation Code 0.2 - 1.0 10^3/mcL AO Workflow SS Monocytes/100 WBC (Bld) 7.9 % Invalid Interpretation Code 1.7 - 13.0 % AO Workflow SS Neutrophil, Absolute 11.5 103/mcL Invalid Interpretation Code 2.9 - 6.2 10^3/mcL AO Workflow SS Neutrophils/100 WBC (Bld) 76.8 % Invalid Interpretation Code 37.0 - 80.0 % AO Workflow SS Platelet mean volume (Bld) [Entitic vol] 7.7 fL Invalid Interpretation Code 7.4 - 10.4 fL AO Workflow SS Platelets (Bld) [#/Vol] 437 103/mcL Invalid Interpretation Code 130 - 400 10^3/mcL AO Workflow SS Potassium [Moles/Vol] 3.9 mmol/L Invalid Interpretation Code 3.5 - 5.1 mmol/L AO ADM SS Protein [Mass/Vol] 8.4 G/dL Invalid Interpretation Code 6.4 - 8.2 G/dL AO ADM SS RBC (Bld) [#/Vol] 3.79 106/mcL Invalid Interpretation Code 4.20 - 5.40 10^6/mcL AO Workflow SS Sodium [Moles/Vol] 138 mmol/L Invalid Interpretation Code 136 - 145 mmol/L AO ADM SS Troponin I.cardiac DL <= 0.01 ng/mL [Mass/Vol] 6.3 ng/L Invalid Interpretation Code 0.0 - 51.4 ng/L AO ADM SS Urea nitrogen [Mass/Vol] 12 mg/dL Invalid Interpretation Code 7 - 18 mg/dL AO ADM SS Urea nitrogen/Creatinine [Mass ratio] 8 ratio Invalid Interpretation Code 7 - 27 ratio AO ADM SS WBC (Bld) [#/Vol] 15.0 103/mcL Invalid Interpretation Code 4.6 - 10.8 10^3/mcL AO Workflow SS LABORATORYOrdered By: Emmanuel Castro on 12-24-2022 Appearance (U) Slightly Cloudy *ABN* (12/24/22 7:30 PM) Invalid Interpretation Code Clear AO Auto Urine SS Bacteria LM.HPF (Urine sed) [#/Area] Trace /HPF Invalid Interpretation Code AO Auto Urine SS Bilirubin Ql (U) Negative (12/24/22 7:30 PM) Invalid Interpretation Code Negative AO Auto Urine SS Color (U) Yellow (12/24/22 7:30 PM) Invalid Interpretation Code AO Auto Urine SS Glucose Test strip (U) [Mass/Vol] Negative Invalid Interpretation Code Negative AO Auto Urine SS Hemoglobin Auto test strip (U) [Mass/Vol] Trace *ABN* (12/24/22 7:30 PM) Invalid Interpretation Code Negative AO Auto Urine SS Ketones Ql (U) Negative Invalid Interpretation Code Negative AO Auto Urine SS UA Leuk Est Trace *ABN* (12/24/22 7:30 PM) Invalid Interpretation Code Negative AO Auto Urine SS UA Mucous Trace /HPF Invalid Interpretation Code AO Auto Urine SS UA Nitrite Negative (12/24/22 7:30 PM) Invalid Interpretation Code Negative AO Auto Urine SS UA pH 7.0 (12/24/22 7:30 PM) Invalid Interpretation Code 5.0 - 8.0 AO Auto Urine SS UA Protein Negative Invalid Interpretation Code Negative AO Auto Urine SS UA RBC None Seen /HPF Invalid Interpretation Code None Seen AO Auto Urine SS UA Spec Grav 1.025 (12/24/22 7:30 PM) Invalid Interpretation Code 1.015-1.025 AO Auto Urine SS UA Specimen Type Clean Catch (12/24/22 7:30 PM) Invalid Interpretation Code AO Auto Urine SS UA Squam Epithelial 0-5 /HPF Invalid Interpretation Code None Seen AO Auto Urine SS UA Urobilinogen 0.2 E.U./dL Invalid Interpretation Code 0.2-1.0 AO Auto Urine SS WBC LM.HPF (Urine sed) [#/Area] 0-5 /HPF Invalid Interpretation Code None Seen AO Auto Urine SS LIPon 12-24-2022 Lipase Level 65 U/L Normal 16-77 [facility] ([place]) Comment on above: Performed By: #### M DW, LIP, CBC, CMP, GFR, ADIFF, TROPHS, ANEU ####John[address] [place], [place] [address] TROPHSon 12-24-2022 Troponin I High Sensitivity 6.5 ng/L Normal 0.0-51.4 [facility] ([place]) Comment on above: Performed By: #### T [facility] ####[address] [place], [place] [address] Troponin I High Sensitivity 6.3 ng/L Normal 0.0-51.4 [facility] ([place]) Comment on above: Performed By: #### M DW, LIP, CBC, CMP, GFR, ADIFF, TROPHS, ANEU ####[address] [place], [place] [address] UAon 12-24-2022 Color (U) Yellow Normal [facility] ([place]) Comment on above: Performed By: #### U A, [place] ####Johny [address] [place] [address] Glucose (U) [Mass/Vol] Negative Normal Negative [facility] ([place]) Comment on above: Performed By: #### U A, [place] ####Johny [address] [place] [address] Ketones Ql (U) Negative Normal Negative [facility] ([place]) Comment on above: Performed By: #### U A, [place] ####Johny [address] [place] [address] UA Appear Slightly Cloudy Abnormal Clear [facility] ([place]) Comment on above: Performed By: #### U A, [place] ####Johny [address] [place] [address] UA Blood Trace Abnormal Negative [facility] ([place]) Comment on above: Performed By: #### U A, [place]O ####Johny [address] [place] [address] UA Leuk Est Trace Abnormal Negative [facility] ([place]) Comment on above: Performed By: #### U A, [place] ####John[address] [place] [address] UA Nitrite Negative Normal Negative [facility] ([place]) Comment on above: Performed By: #### U A, [place] ####Johny [address] [place] [address] UA pH 7.0 Normal 5.0 - 8.0 [facility] ([place]) Comment on above: Performed By: #### U A, [place] ####John[address] [place] [address] UA Protein Negative Normal Negative [facility] ([place]) Comment on above: Performed By: #### U A, [place] ####John[address] [place] [address] UA Spec Grav 1.025 Normal 1.015-1.025 [facility] ([place]) Comment on above: Performed By: #### U A, [place] ####Johny [address] [place], [place] [address] UA Specimen Type Clean Catch Normal [facility] ([place]) Comment on above: Performed By: #### U A, [place] ####[address] [place], [place] [address] UA Urobilinogen 0.2 E.U./dL Normal 0.2-1.0 [facility] ([place]) Comment on above: Performed By: #### U A, [place] ####[address] [place], [place] [address] Urobilinogen (U) [Mass/Vol] Negative Normal Negative [facility] ([place]) Comment on above: Performed By: #### U A, [place] ####[address] [place], [place] [address] UA DIP, URINE (POC)on 2022 BILIRUBIN UA (POCT) Negative Negative [facility] CLARITY UA (POCT) Clear [facility] COLOR UA (POCT) Yellow [facility] GLUCOSE UA (POCT) Negative Negative mg/dL [facility] Hemoglobin Ql (U) Negative Negative [facility] KETONE UA (POCT) Negative Negative mg/dL [facility] LEUKOCYTES UA (POCT) Trace Abnormal Negative [facility] NITRITE UA (POCT) Negative Negative [facility] PH UA (POCT) 6.0 4.5 - 8.0 [facility] Protein Ql (U) Negative Negative mg/dL [facility] SPECIFIC GRAVITY UA (POCT) 1.015 1.005 - 1.030 [facility] UROBILINOGEN UA (POCT) 0.2 E.U./dL Yamileth l E.U./dL [facility] LABORATORYOrdered By: SYSTEM SYSTEM on 10-03-2022 Troponin I.cardiac DL <= 0.01 ng/mL [Mass/Vol] 7.9 ng/L Invalid Interpretation Code 0.0 - 51.4 ng/L AO ADM SS Basophil, Absolute 0.1 103/mcL Invalid Interpretation Code 0.0 - 0.2 10^3/mcL AO Workflow SS Basophils/100 WBC (Bld) 0.5 % Invalid Interpretation Code 0.0 - 2.5 % AO Workflow SS Calcium [Mass/Vol] 9.8 mg/dL Invalid Interpretation Code 8.4 - 10.2 mg/dL AO ADM SS Chloride [Moles/Vol] 103 mmol/L Invalid Interpretation Code 98 - 107 mmol/L AO ADM SS CO2 [Moles/Vol] 24 mmol/L Invalid Interpretation Code 22 - 29 mmol/L AO ADM SS Creatinine [Mass/Vol] 1.37 mg/dL Invalid Interpretation Code 0.55 - 1.02 mg/dL AO ADM SS Electrolyte Balance 11.0 mEq/L Invalid Interpretation Code 4.0 - 15.0 mEq/L AO ADM SS Eosinophil, Absolute 0.1 103/mcL Invalid Interpretation Code 0.0 - 0.4 10^3/mcL AO Workflow SS Eosinophils/100 WBC (Bld) 0.7 % Invalid Interpretation Code 0.0 - 7.0 % AO Workflow SS Erythrocyte distribution width (RBC) [Ratio] 15.9 % Invalid Interpretation Code 11.5 - 14.5 % AO Workflow SS GFR/1.73 sq M.predicted among blacks MDRD (S/P/Bld) [Vol rate/Area] 49 ml/min/1.73sqm Invalid Interpretation Code AO Chemistry S Comment on above: Interpretive Data: GFR Population mean for , Non- Americans Ages 20-29 = 116 mL/min/1.73 sq.m. Ages 30-39 = 107 mL/min/1.73 sq.m. Ages 40-49 = 99 mL/min/1.73 sq.m. Ages 50-59 = 93 mL/min/1.73 sq.m. Ages 60-69 = 85 mL/min/1.73 sq.m. Ages 70+ = 75 mL/min/1.73 sq.m. Chronic Kidney Disease: Less than 60 mL/min/1.73 square meters End Stage Renal Disease: Less than 15 mL/min/1.73 square meters GFR/1.73 sq M.predicted among non-blacks MDRD (S/P/Bld) [Vol rate/Area] 40 ml/min/1.73sqm Invalid Interpretation Code AO Chemistry S Comment on above: Interpretive Data: GFR Population mean for , Non- Americans Ages 20-29 = 116 mL/min/1.73 sq.m. Ages 30-39 = 107 mL/min/1.73 sq.m. Ages 40-49 = 99 mL/min/1.73 sq.m. Ages 50-59 = 93 mL/min/1.73 sq.m. Ages 60-69 = 85 mL/min/1.73 sq.m. Ages 70+ = 75 mL/min/1.73 sq.m. Chronic Kidney Disease: Less than 60 mL/min/1.73 square meters End Stage Renal Disease: Less than 15 mL/min/1.73 square meters Glucose [Mass/Vol] 114 mg/dL Invalid Interpretation Code 70 - 105 mg/dL AO ADM SS Hematocrit (Bld) [Volume fraction] 41.7 % Invalid Interpretation Code 37.0 - 47.0 % AO Workflow SS Hemoglobin (Bld) [Mass/Vol] 13.8 G/dL Invalid Interpretation Code 12.0 - 16.0 G/dL AO Workflow SS Lymphocyte, Absolute 2.0 103/mcL Invalid Interpretation Code 0.8 - 3.9 10^3/mcL AO Workflow SS Lymphocytes/100 WBC (Bld) 11.8 % Invalid Interpretation Code 10.0 - 50.0 % AO Workflow SS Magnesium [Mass/Vol] 2.2 mg/dL Invalid Interpretation Code 1.8 - 2.4 mg/dL AO ADM SS MCH (RBC) [Entitic mass] 35.6 pg Invalid Interpretation Code 27.0 - 31.2 pg AO Workflow SS MCHC 33.1 G/dL Invalid Interpretation Code 33.0 - 37.0 G/dL AO Workflow SS MCV (RBC) [Entitic vol] 107.4 fL Invalid Interpretation Code 80.0 - 94.0 fL AO Workflow SS Monocyte distribution width Auto (Bld) [Entitic vol] 18.99 1 Invalid Interpretation Code 0.00 - 20.00 AO Workflow SS Comment on above: Result Comment: For ED adult patients suspected of sepsis, MDW<=20.0 does not rule out sepsis or risk of sepsis Monocyte, Absolute 1.2 103/mcL Invalid Interpretation Code 0.2 - 1.0 10^3/mcL AO Workflow SS Monocytes/100 WBC (Bld) 7.3 % Invalid Interpretation Code 1.7 - 13.0 % AO Workflow SS Natriuretic peptide.B prohormone N-Terminal [Mass/Vol] 152 pg/mL Invalid Interpretation Code 0 - 125 pg/mL AO ADM SS Comment on above: Interpretive Data: N T-proBNP results of less than 300 pg/mL effectively rules out acute congestive heart failure with 99% negative predictive value. Neutrophil, Absolute 13.3 103/mcL Invalid Interpretation Code 2.9 - 6.2 10^3/mcL AO Workflow SS Neutrophils/100 WBC (Bld) 79.7 % Invalid Interpretation Code 37.0 - 80.0 % AO Workflow SS Platelet mean volume (Bld) [Entitic vol] 7.8 fL Invalid Interpretation Code 7.4 - 10.4 fL AO Workflow SS Platelets (Bld) [#/Vol] 469 103/mcL Invalid Interpretation Code 130 - 400 10^3/mcL AO Workflow SS Potassium [Moles/Vol] 4.7 mmol/L Invalid Interpretation Code 3.5 - 5.1 mmol/L AO ADM SS RBC (Bld) [#/Vol] 3.88 106/mcL Invalid Interpretation Code 4.20 - 5.40 10^6/mcL AO Workflow SS Sodium [Moles/Vol] 138 mmol/L Invalid Interpretation Code 136 - 145 mmol/L AO ADM SS Troponin I.cardiac DL <= 0.01 ng/mL [Mass/Vol] 7.6 ng/L Invalid Interpretation Code 0.0 - 51.4 ng/L AO ADM SS Urea nitrogen [Mass/Vol] 28 mg/dL Invalid Interpretation Code 7 - 18 mg/dL AO ADM SS Urea nitrogen/Creatinine [Mass ratio] 20 ratio Invalid Interpretation Code 7 - 27 ratio AO ADM SS WBC (Bld) [#/Vol] 16.6 103/mcL Invalid Interpretation Code 4.6 - 10.8 10^3/mcL AO Workflow SS LABORATORYOrdered By: Inez Kaufman on 10-03-2022 Appearance (U) Cloudy *ABN* (10/03/22 2:30 PM) Invalid Interpretation Code Clear AO Auto Urine SS Bacteria LM.HPF (Urine sed) [#/Area] Trace /HPF Invalid Interpretation Code AO Auto Urine SS Bilirubin Ql (U) Negative (10/03/22 2:30 PM) Invalid Interpretation Code Negative AO Auto Urine SS Color (U) Yellow (10/03/22 2:30 PM) Invalid Interpretation Code AO Auto Urine SS Glucose Test strip (U) [Mass/Vol] Negative Invalid Interpretation Code Negative AO Auto Urine SS Hemoglobin Auto test strip (U) [Mass/Vol] Trace *ABN* (10/03/22 2:30 PM) Invalid Interpretation Code Negative AO Auto Urine SS Ketones Ql (U) Negative Invalid Interpretation Code Negative AO Auto Urine SS UA Leuk Est Trace *ABN* (10/03/22 2:30 PM) Invalid Interpretation Code Negative AO Auto Urine SS UA Mucous 1+ /HPF Invalid Interpretation Code AO Auto Urine SS UA Nitrite Negative (10/03/22 2:30 PM) Invalid Interpretation Code Negative AO Auto Urine SS UA pH 5.5 (10/03/22 2:30 PM) Invalid Interpretation Code 5.0 - 8.0 AO Auto Urine SS UA Protein Negative Invalid Interpretation Code Negative AO Auto Urine SS UA RBC 0-5 /HPF Invalid Interpretation Code None Seen AO Auto Urine SS UA Spec Grav 1.025 (10/03/22 2:30 PM) Invalid Interpretation Code 1.015-1.025 AO Auto Urine SS UA Specimen Type Clean Catch (10/03/22 2:30 PM) Invalid Interpretation Code AO Auto Urine SS UA Squam Epithelial 0-5 /HPF Invalid Interpretation Code None Seen AO Auto Urine SS UA Urobilinogen 0.2 E.U./dL Invalid Interpretation Code 0.2-1.0 AO Auto Urine SS WBC LM.HPF (Urine sed) [#/Area] 5-10 /HPF Invalid Interpretation Code None Seen AO Auto Urine SS aPTT Coag (PPP) [Time] 28.8 s Invalid Interpretation Code 25.0 - 35.0 seconds AO [facility] SS Comment on above: Interpretive Data: F or Heparin anticoagulation therapy, the recommended therapeutic range is: 50.6-87.4 seconds. Patients on heparin therapy may have an extreme result. Heparin dose (APTT) DTI (10/03/22 2:16 PM) Invalid Interpretation Code AO [facility] SS INR Coag (PPP) [Relative time] 1.1 {INR} Invalid Interpretation Code AO [facility] SS Comment on above: Interpretive Data: Kaylee brumfield [employer] (CHEST, 1992, [id number]) recommended therapeutic range for oral anticoagulant therapy is: LOW RISK: Prophylaxis of venous thrombosis INR: 2.0-3.0 Treatment of pulmonary embolism 2.0-3.0 Prevention of systemic embolism 2.0-3.0 HIGH RISK: Mechanical prosthetic valves 2.5-3.5 PT Coag (PPP) [Time] 12.1 s Invalid Interpretation Code 9.1 - 14.2 seconds AO [facility] SS LABORATORYOrdered By: Katerina Stockton on 09-23-2022 Appearance (U) Clear (09/23/22 12:18 AM) Invalid Interpretation Code Clear AO Auto Urine SS Bilirubin Ql (U) Negative (09/23/22 12:18 AM) Invalid Interpretation Code Negative AO Auto Urine SS Color (U) Yellow (09/23/22 12:18 AM) Invalid Interpretation Code AO Auto Urine SS Glucose Test strip (U) [Mass/Vol] 500 mg/dL Invalid Interpretation Code Negative AO Auto Urine SS Hemoglobin Auto test strip (U) [Mass/Vol] Trace *ABN* (09/23/22 12:18 AM) Invalid Interpretation Code Negative AO Auto Urine SS Ketones Ql (U) Trace mg/dL Invalid Interpretation Code Negative AO Auto Urine SS UA Leuk Est Negative (09/23/22 12:18 AM) Invalid Interpretation Code Negative AO Auto Urine SS UA Nitrite Negative (09/23/22 12:18 AM) Invalid Interpretation Code Negative AO Auto Urine SS UA pH 5.5 (09/23/22 12:18 AM) Invalid Interpretation Code 5.0 - 8.0 AO Auto Urine SS UA Protein Negative Invalid Interpretation Code Negative AO Auto Urine SS UA Spec Grav 1.020 (09/23/22 12:18 AM) Invalid Interpretation Code 1.015-1.025 AO Auto Urine SS UA Specimen Type Void (09/23/22 12:18 AM) Invalid Interpretation Code AO Auto Urine SS UA Urobilinogen 0.2 E.U./dL Invalid Interpretation Code 0.2-1.0 AO Auto Urine SS LABORATORYOrdered By: Jessa corcoran on 08-05-2022 Glucose [Mass/Vol] 107 mg/dL Normal 70 - 110 mg/dL [facility] XR Ankle - left AP and Later al and obliqueon 08-05-2022 IMPRESSION: No acute osseous abnormality Groundskeeping Maintenance: ADAM Transcribe Date/Time: Aug 05 2022 6:39P Dictated by : MAE LEY MD This examination was interpreted and the report reviewed and electronically signed by: MAE LEY MD on Aug 05 2022 6:40PM EST DIVISION OF RADIOLOGY * * *Final Report* * * DATE OF EXAM: Aug 05 2022 6:36PM WOX 5298 - XR ANKLE 3V AP/LAT/OBL LT / PROCEDURE REASON: Left ankle injury, initial encounter * * * * Physician Interpretation * * * * EXAMINATION: XR ANKLE 3V AP/LAT/OBL LT CLINICAL HISTORY: Left ankle injury Technique: XR ANKLE 3V AP/LAT/OBL LT -- LEFT with 3 views on 3 images Comparison: None RESULT: No acute fracture or dislocation. Joint spaces are maintained. Plantar calcaneal spur. Vascular calcifications are noted. DIVISION OF RADIOLOGY Provider, [facility] - 08/05/2022 * * *Final Report* * * DATE OF EXAM: Aug 05 2022 6:36PM WOX 5298 - XR ANKLE 3V AP/LAT/OBL LT / PROCEDURE REASON: Left ankle injury, initial encounter * * * * Physician Interpretation * * * * EXAMINATION: XR ANKLE 3V AP/LAT/OBL LT CLINICAL HISTORY: Left ankle injury Technique: XR ANKLE 3V AP/LAT/OBL LT -- LEFT with 3 views on 3 images Comparison: None RESULT: No acute fracture or dislocation. Joint spaces are maintained. Plantar calcaneal spur. Vascular calcifications are noted. IMPRESSION IMPRESSION: No acute osseous abnormality Groundskeeping Maintenance: ADAM Transcribe Date/Time: Aug 05 2022 6:39P Dictated by : MAE LEY MD This examination was interpreted and the report reviewed and electronically signed by: MAE LEY MD on Aug 05 2022 6:40PM EST [facility] Radiology Study observation (narrative) [facility] XR Ankle - left AP and Later al and obliqueOrdered By: [facility] Provider on 08-05-2022 [facility] No Panel Informationon 07-28 IMPRESSION: No acute osseous abnormality. Groundskeeping Maintenance: PSCB Transcribe Date/Time: Jul 28 2022 10:30A Dictated by : ANN RAE DO This examination was interpreted and the report reviewed and electronically signed by: ANN RAE DO on Jul 28 2022 10:45AM EST DIVISION OF RADIOLOGY Radiology Study observation (narrative) [facility] No Panel InformationOrdered By: Ccf Provider on 07-28-2022 [facility] XR Cervical spine AP and Lat eral and obliqueon 07-28-2022 * * *Final Report* * * DATE OF EXAM: Jul 28 2022 10:28AM WOX 5311 - XR CERVICAL 4V AP/LAT/OBL / PROCEDURE REASON: Fall, initial encounter * * * * Physician Interpretation * * * * EXAMINATION: XR RIB/CHST 3V AP RIB/OBL/CHST L, XR CERVICAL 4V AP/LAT/OBL, XR FOREARM 2V AP/LAT LT, XR LUMBAR 3V AP/LAT/L5-S1 PATIENT/TECHNOLOGIST PROVIDED HISTORY: Pt fell from standing x 2 days ago. Left lateral lower rib pain. Posterior neck pain that radiates to both shoulders. Radial sided left forearm pain that goes from the wrist to mid forearm. Centralized lower back pain. CLINICAL INFORMATION: 51 years old Female with Fall, initial encounter TECHNIQUE: XR RIB/CHST 3V AP RIB/OBL/CHST L, XR CERVICAL 4V AP/LAT/OBL, XR FOREARM 2V AP/LAT LT, XR LUMBAR 3V AP/LAT/L5-S1 Laterality: See below. Number of different views (projections): 3 views of the LEFT ribs, 4 views of the cervical spine, 3 views of the lumbar spine and 2 views of the LEFT forearm. COMPARISON: None RESULT: LEFT Ribs: No LEFT rib fracture identified. Low lung volumes. No consolidation. No sizable pleural effusion or pneumothorax. Cardiopericardial silhouette is exaggerated by technique though probably enlarged. Cervical spine: Counting reference: Craniocervical junction. Anatomic Variants: None. Alignment: Straightening of the normal cervical lordosis. Alignment is otherwise satisfactory. Vertebral bodies: Vertebral body heights are maintained. Spine articulations: Disc space narrowing C6-C7 with endplate osteophytes. Assessment of the RIGHT neuroforamina is limited due to suboptimal positioning of the oblique views. No significant LEFT neuroforaminal stenosis. Lumbar spine: Counting reference: Lumbosacral junction. For the purposes of this report, upper L4 is considered the level of the iliac crest and there are 5 lumbar-type vertebrae. Anatomic Variants: None. Post-op assessment: N/A Alignment: Alignment is satisfactory. Vertebral bodies: Vertebral body heights are maintained. Spine articulations: Minimal disc space narrowing L3-S1 with small endplate osteophytes. Mild facet degenerative change lower lumbar spine. Other: Sacroiliac joints are symmetric and maintained. Atherosclerotic calcification of the abdominal aorta. LEFT forearm: No fracture. Joint spaces are maintained. DIVISION OF RADIOLOGY Provider, [facility] - 07/28/2022 * * *Final Report* * * DATE OF EXAM: Jul 28 2022 10:28AM WOX 5311 - XR CERVICAL 4V AP/LAT/OBL / PROCEDURE REASON: Fall, initial encounter * * * * Physician Interpretation * * * * EXAMINATION: XR RIB/CHST 3V AP RIB/OBL/CHST L, XR CERVICAL 4V AP/LAT/OBL, XR FOREARM 2V AP/LAT LT, XR LUMBAR 3V AP/LAT/L5-S1 PATIENT/TECHNOLOGIST PROVIDED HISTORY: Pt fell from standing x 2 days ago. Left lateral lower rib pain. Posterior neck pain that radiates to both shoulders. Radial sided left forearm pain that goes from the wrist to mid forearm. Centralized lower back pain. CLINICAL INFORMATION: 51 years old Female with Fall, initial encounter TECHNIQUE: XR RIB/CHST 3V AP RIB/OBL/CHST L, XR CERVICAL 4V AP/LAT/OBL, XR FOREARM 2V AP/LAT LT, XR LUMBAR 3V AP/LAT/L5-S1 Laterality: See below. Number of different views (projections): 3 views of the LEFT ribs, 4 views of the cervical spine, 3 views of the lumbar spine and 2 views of the LEFT forearm. COMPARISON: None RESULT: LEFT Ribs: No LEFT rib fracture identified. Low lung volumes. No consolidation. No sizable pleural effusion or pneumothorax. Cardiopericardial silhouette is exaggerated by technique though probably enlarged. Cervical spine: Counting reference: Craniocervical junction. Anatomic Variants: None. Alignment: Straightening of the normal cervical lordosis. Alignment is otherwise satisfactory. Vertebral bodies: Vertebral body heights are maintained. Spine articulations: Disc space narrowing C6-C7 with endplate osteophytes. Assessment of the RIGHT neuroforamina is limited due to suboptimal positioning of the oblique views. No significant LEFT neuroforaminal stenosis. Lumbar spine: Counting reference: Lumbosacral junction. For the purposes of this report, upper L4 is considered the level of the iliac crest and there are 5 lumbar-type vertebrae. Anatomic Variants: None. Post-op assessment: N/A Alignment: Alignment is satisfactory. Vertebral bodies: Vertebral body heights are maintained. Spine articulations: Minimal disc space narrowing L3-S1 with small endplate osteophytes. Mild facet degenerative change lower lumbar spine. Other: Sacroiliac joints are symmetric and maintained. Atherosclerotic calcification of the abdominal aorta. LEFT forearm: No fracture. Joint spaces are maintained. IMPRESSION IMPRESSION: No acute osseous abnormality. Groundskeeping Maintenance: ADAM Transcribe Date/Time: Jul 28 2022 10:30A Dictated by : ANN RAE DO This examination was interpreted and the report reviewed and electronically signed by: ANN RAE DO on Jul 28 2022 10:45AM [facility] XR Lumbar spine 3 Viewson * * *Final Report* * * DATE OF EXAM: Jul 28 2022 10:28AM WOX 5228 - XR LUMBAR 3V AP/LAT/L5-S1 / PROCEDURE REASON: Fall, initial encounter * * * * Physician Interpretation * * * * EXAMINATION: XR RIB/CHST 3V AP RIB/OBL/CHST L, XR CERVICAL 4V AP/LAT/OBL, XR FOREARM 2V AP/LAT LT, XR LUMBAR 3V AP/LAT/L5-S1 PATIENT/TECHNOLOGIST PROVIDED HISTORY: Pt fell from standing x 2 days ago. Left lateral lower rib pain. Posterior neck pain that radiates to both shoulders. Radial sided left forearm pain that goes from the wrist to mid forearm. Centralized lower back pain. CLINICAL INFORMATION: 51 years old Female with Fall, initial encounter TECHNIQUE: XR RIB/CHST 3V AP RIB/OBL/CHST L, XR CERVICAL 4V AP/LAT/OBL, XR FOREARM 2V AP/LAT LT, XR LUMBAR 3V AP/LAT/L5-S1 Laterality: See below. Number of different views (projections): 3 views of the LEFT ribs, 4 views of the cervical spine, 3 views of the lumbar spine and 2 views of the LEFT forearm. COMPARISON: None RESULT: LEFT Ribs: No LEFT rib fracture identified. Low lung volumes. No consolidation. No sizable pleural effusion or pneumothorax. Cardiopericardial silhouette is exaggerated by technique though probably enlarged. Cervical spine: Counting reference: Craniocervical junction. Anatomic Variants: None. Alignment: Straightening of the normal cervical lordosis. Alignment is otherwise satisfactory. Vertebral bodies: Vertebral body heights are maintained. Spine articulations: Disc space narrowing C6-C7 with endplate osteophytes. Assessment of the RIGHT neuroforamina is limited due to suboptimal positioning of the oblique views. No significant LEFT neuroforaminal stenosis. Lumbar spine: Counting reference: Lumbosacral junction. For the purposes of this report, upper L4 is considered the level of the iliac crest and there are 5 lumbar-type vertebrae. Anatomic Variants: None. Post-op assessment: N/A Alignment: Alignment is satisfactory. Vertebral bodies: Vertebral body heights are maintained. Spine articulations: Minimal disc space narrowing L3-S1 with small endplate osteophytes. Mild facet degenerative change lower lumbar spine. Other: Sacroiliac joints are symmetric and maintained. Atherosclerotic calcification of the abdominal aorta. LEFT forearm: No fracture. Joint spaces are maintained. DIVISION OF RADIOLOGY Provider, [facility] - 07/28/2022 * * *Final Report* * * DATE OF EXAM: Jul 28 2022 10:28AM WOX 5228 - XR LUMBAR 3V AP/LAT/L5-S1 / PROCEDURE REASON: Fall, initial encounter * * * * Physician Interpretation * * * * EXAMINATION: XR RIB/CHST 3V AP RIB/OBL/CHST L, XR CERVICAL 4V AP/LAT/OBL, XR FOREARM 2V AP/LAT LT, XR LUMBAR 3V AP/LAT/L5-S1 PATIENT/TECHNOLOGIST PROVIDED HISTORY: Pt fell from standing x 2 days ago. Left lateral lower rib pain. Posterior neck pain that radiates to both shoulders. Radial sided left forearm pain that goes from the wrist to mid forearm. Centralized lower back pain. CLINICAL INFORMATION: 51 years old Female with Fall, initial encounter TECHNIQUE: XR RIB/CHST 3V AP RIB/OBL/CHST L, XR CERVICAL 4V AP/LAT/OBL, XR FOREARM 2V AP/LAT LT, XR LUMBAR 3V AP/LAT/L5-S1 Laterality: See below. Number of different views (projections): 3 views of the LEFT ribs, 4 views of the cervical spine, 3 views of the lumbar spine and 2 views of the LEFT forearm. COMPARISON: None RESULT: LEFT Ribs: No LEFT rib fracture identified. Low lung volumes. No consolidation. No sizable pleural effusion or pneumothorax. Cardiopericardial silhouette is exaggerated by technique though probably enlarged. Cervical spine: Counting reference: Craniocervical junction. Anatomic Variants: None. Alignment: Straightening of the normal cervical lordosis. Alignment is otherwise satisfactory. Vertebral bodies: Vertebral body heights are maintained. Spine articulations: Disc space narrowing C6-C7 with endplate osteophytes. Assessment of the RIGHT neuroforamina is limited due to suboptimal positioning of the oblique views. No significant LEFT neuroforaminal stenosis. Lumbar spine: Counting reference: Lumbosacral junction. For the purposes of this report, upper L4 is considered the level of the iliac crest and there are 5 lumbar-type vertebrae. Anatomic Variants: None. Post-op assessment: N/A Alignment: Alignment is satisfactory. Vertebral bodies: Vertebral body heights are maintained. Spine articulations: Minimal disc space narrowing L3-S1 with small endplate osteophytes. Mild facet degenerative change lower lumbar spine. Other: Sacroiliac joints are symmetric and maintained. Atherosclerotic calcification of the abdominal aorta. LEFT forearm: No fracture. Joint spaces are maintained. IMPRESSION IMPRESSION: No acute osseous abnormality. Groundskeeping Maintenance: PSCB Transcribe Date/Time: Jul 28 2022 10:30A Dictated by : ANN RAE DO This examination was interpreted and the report reviewed and electronically signed by: ANN RAE DO on Jul 28 2022 10:45AM [facility] XR Radius and Ulna - left AP and Lateralon 07-28-2022 * * *Final Report* * * DATE OF EXAM: Jul 28 2022 10:28AM WOX 5341 - XR FOREARM 2V AP/LAT LT / PROCEDURE REASON: Fall, initial encounter * * * * Physician Interpretation * * * * EXAMINATION: XR RIB/CHST 3V AP RIB/OBL/CHST L, XR CERVICAL 4V AP/LAT/OBL, XR FOREARM 2V AP/LAT LT, XR LUMBAR 3V AP/LAT/L5-S1 PATIENT/TECHNOLOGIST PROVIDED HISTORY: Pt fell from standing x 2 days ago. Left lateral lower rib pain. Posterior neck pain that radiates to both shoulders. Radial sided left forearm pain that goes from the wrist to mid forearm. Centralized lower back pain. CLINICAL INFORMATION: 51 years old Female with Fall, initial encounter TECHNIQUE: XR RIB/CHST 3V AP RIB/OBL/CHST L, XR CERVICAL 4V AP/LAT/OBL, XR FOREARM 2V AP/LAT LT, XR LUMBAR 3V AP/LAT/L5-S1 Laterality: See below. Number of different views (projections): 3 views of the LEFT ribs, 4 views of the cervical spine, 3 views of the lumbar spine and 2 views of the LEFT forearm. COMPARISON: None RESULT: LEFT Ribs: No LEFT rib fracture identified. Low lung volumes. No consolidation. No sizable pleural effusion or pneumothorax. Cardiopericardial silhouette is exaggerated by technique though probably enlarged. Cervical spine: Counting reference: Craniocervical junction. Anatomic Variants: None. Alignment: Straightening of the normal cervical lordosis. Alignment is otherwise satisfactory. Vertebral bodies: Vertebral body heights are maintained. Spine articulations: Disc space narrowing C6-C7 with endplate osteophytes. Assessment of the RIGHT neuroforamina is limited due to suboptimal positioning of the oblique views. No significant LEFT neuroforaminal stenosis. Lumbar spine: Counting reference: Lumbosacral junction. For the purposes of this report, upper L4 is considered the level of the iliac crest and there are 5 lumbar-type vertebrae. Anatomic Variants: None. Post-op assessment: N/A Alignment: Alignment is satisfactory. Vertebral bodies: Vertebral body heights are maintained. Spine articulations: Minimal disc space narrowing L3-S1 with small endplate osteophytes. Mild facet degenerative change lower lumbar spine. Other: Sacroiliac joints are symmetric and maintained. Atherosclerotic calcification of the abdominal aorta. LEFT forearm: No fracture. Joint spaces are maintained. DIVISION OF RADIOLOGY Provider, [facility] - 07/28/2022 * * *Final Report* * * DATE OF EXAM: Jul 28 2022 10:28AM WOX 5341 - XR FOREARM 2V AP/LAT LT / PROCEDURE REASON: Fall, initial encounter * * * * Physician Interpretation * * * * EXAMINATION: XR RIB/CHST 3V AP RIB/OBL/CHST L, XR CERVICAL 4V AP/LAT/OBL, XR FOREARM 2V AP/LAT LT, XR LUMBAR 3V AP/LAT/L5-S1 PATIENT/TECHNOLOGIST PROVIDED HISTORY: Pt fell from standing x 2 days ago. Left lateral lower rib pain. Posterior neck pain that radiates to both shoulders. Radial sided left forearm pain that goes from the wrist to mid forearm. Centralized lower back pain. CLINICAL INFORMATION: 51 years old Female with Fall, initial encounter TECHNIQUE: XR RIB/CHST 3V AP RIB/OBL/CHST L, XR CERVICAL 4V AP/LAT/OBL, XR FOREARM 2V AP/LAT LT, XR LUMBAR 3V AP/LAT/L5-S1 Laterality: See below. Number of different views (projections): 3 views of the LEFT ribs, 4 views of the cervical spine, 3 views of the lumbar spine and 2 views of the LEFT forearm. COMPARISON: None RESULT: LEFT Ribs: No LEFT rib fracture identified. Low lung volumes. No consolidation. No sizable pleural effusion or pneumothorax. Cardiopericardial silhouette is exaggerated by technique though probably enlarged. Cervical spine: Counting reference: Craniocervical junction. Anatomic Variants: None. Alignment: Straightening of the normal cervical lordosis. Alignment is otherwise satisfactory. Vertebral bodies: Vertebral body heights are maintained. Spine articulations: Disc space narrowing C6-C7 with endplate osteophytes. Assessment of the RIGHT neuroforamina is limited due to suboptimal positioning of the oblique views. No significant LEFT neuroforaminal stenosis. Lumbar spine: Counting reference: Lumbosacral junction. For the purposes of this report, upper L4 is considered the level of the iliac crest and there are 5 lumbar-type vertebrae. Anatomic Variants: None. Post-op assessment: N/A Alignment: Alignment is satisfactory. Vertebral bodies: Vertebral body heights are maintained. Spine articulations: Minimal disc space narrowing L3-S1 with small endplate osteophytes. Mild facet degenerative change lower lumbar spine. Other: Sacroiliac joints are symmetric and maintained. Atherosclerotic calcification of the abdominal aorta. LEFT forearm: No fracture. Joint spaces are maintained. IMPRESSION IMPRESSION: No acute osseous abnormality. Groundskeeping Maintenance: PSCB Transcribe Date/Time: Jul 28 2022 10:30A Dictated by : ANN RAE DO This examination was interpreted and the report reviewed and electronically signed by: ANN RAE DO on Jul 28 2022 10:45AM [facility] XR Ribs - left Views and [facility] 07-28-2022 * * *Final Report* * * DATE OF EXAM: Jul 28 2022 10:28AM WOX 5243 - XR RIB/CHST 3V AP RIB/OBL/CHST L / PROCEDURE REASON: Fall, initial encounter * * * * Physician Interpretation * * * * EXAMINATION: XR RIB/CHST 3V AP RIB/OBL/CHST L, XR CERVICAL 4V AP/LAT/OBL, XR FOREARM 2V AP/LAT LT, XR LUMBAR 3V AP/LAT/L5-S1 PATIENT/TECHNOLOGIST PROVIDED HISTORY: Pt fell from standing x 2 days ago. Left lateral lower rib pain. Posterior neck pain that radiates to both shoulders. Radial sided left forearm pain that goes from the wrist to mid forearm. Centralized lower back pain. CLINICAL INFORMATION: 51 years old Female with Fall, initial encounter TECHNIQUE: XR RIB/CHST 3V AP RIB/OBL/CHST L, XR CERVICAL 4V AP/LAT/OBL, XR FOREARM 2V AP/LAT LT, XR LUMBAR 3V AP/LAT/L5-S1 Laterality: See below. Number of different views (projections): 3 views of the LEFT ribs, 4 views of the cervical spine, 3 views of the lumbar spine and 2 views of the LEFT forearm. COMPARISON: None RESULT: LEFT Ribs: No LEFT rib fracture identified. Low lung volumes. No consolidation. No sizable pleural effusion or pneumothorax. Cardiopericardial silhouette is exaggerated by technique though probably enlarged. Cervical spine: Counting reference: Craniocervical junction. Anatomic Variants: None. Alignment: Straightening of the normal cervical lordosis. Alignment is otherwise satisfactory. Vertebral bodies: Vertebral body heights are maintained. Spine articulations: Disc space narrowing C6-C7 with endplate osteophytes. Assessment of the RIGHT neuroforamina is limited due to suboptimal positioning of the oblique views. No significant LEFT neuroforaminal stenosis. Lumbar spine: Counting reference: Lumbosacral junction. For the purposes of this report, upper L4 is considered the level of the iliac crest and there are 5 lumbar-type vertebrae. Anatomic Variants: None. Post-op assessment: N/A Alignment: Alignment is satisfactory. Vertebral bodies: Vertebral body heights are maintained. Spine articulations: Minimal disc space narrowing L3-S1 with small endplate osteophytes. Mild facet degenerative change lower lumbar spine. Other: Sacroiliac joints are symmetric and maintained. Atherosclerotic calcification of the abdominal aorta. LEFT forearm: No fracture. Joint spaces are maintained. DIVISION OF RADIOLOGY Provider, [facility] - 07/28/2022 * * *Final Report* * * DATE OF EXAM: Jul 28 2022 10:28AM WOX 5243 - XR RIB/CHST 3V AP RIB/OBL/CHST L / PROCEDURE REASON: Fall, initial encounter * * * * Physician Interpretation * * * * EXAMINATION: XR RIB/CHST 3V AP RIB/OBL/CHST L, XR CERVICAL 4V AP/LAT/OBL, XR FOREARM 2V AP/LAT LT, XR LUMBAR 3V AP/LAT/L5-S1 PATIENT/TECHNOLOGIST PROVIDED HISTORY: Pt fell from standing x 2 days ago. Left lateral lower rib pain. Posterior neck pain that radiates to both shoulders. Radial sided left forearm pain that goes from the wrist to mid forearm. Centralized lower back pain. CLINICAL INFORMATION: 51 years old Female with Fall, initial encounter TECHNIQUE: XR RIB/CHST 3V AP RIB/OBL/CHST L, XR CERVICAL 4V AP/LAT/OBL, XR FOREARM 2V AP/LAT LT, XR LUMBAR 3V AP/LAT/L5-S1 Laterality: See below. Number of different views (projections): 3 views of the LEFT ribs, 4 views of the cervical spine, 3 views of the lumbar spine and 2 views of the LEFT forearm. COMPARISON: None RESULT: LEFT Ribs: No LEFT rib fracture identified. Low lung volumes. No consolidation. No sizable pleural effusion or pneumothorax. Cardiopericardial silhouette is exaggerated by technique though probably enlarged. Cervical spine: Counting reference: Craniocervical junction. Anatomic Variants: None. Alignment: Straightening of the normal cervical lordosis. Alignment is otherwise satisfactory. Vertebral bodies: Vertebral body heights are maintained. Spine articulations: Disc space narrowing C6-C7 with endplate osteophytes. Assessment of the RIGHT neuroforamina is limited due to suboptimal positioning of the oblique views. No significant LEFT neuroforaminal stenosis. Lumbar spine: Counting reference: Lumbosacral junction. For the purposes of this report, upper L4 is considered the level of the iliac crest and there are 5 lumbar-type vertebrae. Anatomic Variants: None. Post-op assessment: N/A Alignment: Alignment is satisfactory. Vertebral bodies: Vertebral body heights are maintained. Spine articulations: Minimal disc space narrowing L3-S1 with small endplate osteophytes. Mild facet degenerative change lower lumbar spine. Other: Sacroiliac joints are symmetric and maintained. Atherosclerotic calcification of the abdominal aorta. LEFT forearm: No fracture. Joint spaces are maintained. IMPRESSION IMPRESSION: No acute osseous abnormality. Groundskeeping Maintenance: ADAM Transcribe Date/Time: Jul 28 2022 10:30A Dictated by : ANN RAE DO This examination was interpreted and the report reviewed and electronically signed by: ANN RAE DO on Jul 28 2022 10:45AM EST [facility] Influenza virus A and B RNA and SARS-CoV-2 (COVID-19) N gene panel IZZY+probe (Resp)on 02-26-2022 FLUAV RNA IZZY+probe Ql (Unsp spec) Negative Negative for Influenza A by RT-PCR [facility] FLUBV RNA IZZY+probe Ql (Unsp spec) Negative Negative for Influenza B by RT-PCR [facility] SARS-CoV-2 (COVID-19) RNA IZZY+probe Ql (Resp) SARS-CoV-2 (Agent of COVID-19) Not Detected by RT-PCR or equivalent method. Not Detected [facility] LABORATORYOrdered By: Nitin Tenorio on 12-20-2021 Albumin BCP dye [Mass/Vol] 3.7 G/dL Invalid Interpretation Code 3.5 - 5.0 G/dL AO ADM SS Albumin/Globulin [Mass ratio] 1.1 {ratio} Invalid Interpretation Code 1.1 - 2.5 ratio AO ADM SS ALP [Catalytic activity/Vol] 106 U/L Invalid Interpretation Code 40 - 135 U/L AO ADM SS ALT With P-5'-P [Catalytic activity/Vol] 23 U/L Invalid Interpretation Code 14 - 59 U/L AO ADM SS Appearance (U) Clear (12/20/21 2:16 PM) Invalid Interpretation Code Clear AO Auto Urine SS AST With P-5'-P [Catalytic activity/Vol] 23 U/L Invalid Interpretation Code 10 - 40 U/L AO ADM SS Basophil, Absolute 0.1 103/mcL Invalid Interpretation Code 0.0 - 0.2 10^3/mcL AO Workflow SS Basophils/100 WBC (Bld) 0.5 % Invalid Interpretation Code 0.0 - 2.5 % AO Workflow SS Bilirubin [Mass/Vol] 0.7 mg/dL Invalid Interpretation Code 0.2 - 1.0 mg/dL AO ADM SS Bilirubin Ql (U) Negative (12/20/21 2:16 PM) Invalid Interpretation Code Negative AO Auto Urine SS Calcium [Mass/Vol] 10.0 mg/dL Invalid Interpretation Code 8.4 - 10.2 mg/dL AO ADM SS Chloride [Moles/Vol] 101 mmol/L Invalid Interpretation Code 98 - 107 mmol/L AO ADM SS CO2 [Moles/Vol] 28 mmol/L Invalid Interpretation Code 22 - 29 mmol/L AO ADM SS Color (U) Yellow (12/20/21 2:16 PM) Invalid Interpretation Code AO Auto Urine SS Creatinine [Mass/Vol] 1.15 mg/dL Invalid Interpretation Code 0.55 - 1.02 mg/dL AO ADM SS Electrolyte Balance 11.0 mEq/L Invalid Interpretation Code 4.0 - 15.0 mEq/L AO ADM SS Eosinophil, Absolute 0.1 103/mcL Invalid Interpretation Code 0.0 - 0.4 10^3/mcL AO Workflow SS Eosinophils/100 WBC (Bld) 0.8 % Invalid Interpretation Code 0.0 - 7.0 % AO Workflow SS Erythrocyte distribution width (RBC) [Ratio] 15.5 % Invalid Interpretation Code 11.5 - 14.5 % AO Workflow SS Globulin 3.4 G/dL Invalid Interpretation Code AO ADM SS Glucose [Mass/Vol] 106 mg/dL Invalid Interpretation Code 70 - 105 mg/dL AO ADM SS Glucose Test strip (U) [Mass/Vol] Negative Invalid Interpretation Code Negativemg/d L AO Auto Urine SS Hematocrit (Bld) [Volume fraction] 36.0 % Invalid Interpretation Code 37.0 - 47.0 % AO Workflow SS Hemoglobin (Bld) [Mass/Vol] 12.2 G/dL Invalid Interpretation Code 12.0 - 16.0 G/dL AO Workflow SS Hemoglobin Auto test strip (U) [Mass/Vol] Negative (12/20/21 2:16 PM) Invalid Interpretation Code Negative AO Auto Urine SS Ketones Ql (U) Negative Invalid Interpretation Code Negativemg/d L AO Auto Urine SS Lipase [Catalytic activity/Vol] 211 U/L Invalid Interpretation Code 73 - 393 U/L AO ADM SS Lymphocyte, Absolute 1.2 103/mcL Invalid Interpretation Code 0.8 - 3.9 10^3/mcL AO Workflow SS Lymphocytes/100 WBC (Bld) 10.2 % Invalid Interpretation Code 10.0 - 50.0 % AO Workflow SS MCH (RBC) [Entitic mass] 36.2 pg Invalid Interpretation Code 27.0 - 31.2 pg AO Workflow SS MCHC 33.8 G/dL Invalid Interpretation Code 33.0 - 37.0 G/dL AO Workflow SS MCV (RBC) [Entitic vol] 107.1 fL Invalid Interpretation Code 80.0 - 94.0 fL AO Workflow SS Monocyte distribution width Auto (Bld) [Entitic vol] 18.91 Invalid Interpretation Code 0.00 - 20.00 AO Workflow SS Comment on above: Result Comment: For ED adult patients suspected of sepsis, MDW<=20.0 does not rule out sepsis or risk of sepsis Monocyte, Absolute 0.8 103/mcL Invalid Interpretation Code 0.2 - 1.0 10^3/mcL AO Workflow SS Monocytes/100 WBC (Bld) 6.7 % Invalid Interpretation Code 1.7 - 13.0 % AO Workflow SS Neutrophil, Absolute 9.4 103/mcL Invalid Interpretation Code 2.9 - 6.2 10^3/mcL AO Workflow SS Neutrophils/100 WBC (Bld) 81.8 % Invalid Interpretation Code 37.0 - 80.0 % AO Workflow SS Platelet mean volume (Bld) [Entitic vol] 8.0 fL Invalid Interpretation Code 7.4 - 10.4 fL AO Workflow SS Platelets (Bld) [#/Vol] 295 103/mcL Invalid Interpretation Code 130 - 400 10^3/mcL AO Workflow SS Potassium [Moles/Vol] 2.9 mmol/L Invalid Interpretation Code 3.5 - 5.1 mmol/L AO ADM SS Protein [Mass/Vol] 7.1 G/dL Invalid Interpretation Code 6.4 - 8.2 G/dL AO ADM SS RBC (Bld) [#/Vol] 3.36 106/mcL Invalid Interpretation Code 4.20 - 5.40 10^6/mcL AO Workflow SS Sodium [Moles/Vol] 140 mmol/L Invalid Interpretation Code 136 - 145 mmol/L AO ADM SS UA Leuk Est Negative (12/20/21 2:16 PM) Invalid Interpretation Code Negative AO Auto Urine SS UA Nitrite Negative (12/20/21 2:16 PM) Invalid Interpretation Code Negative AO Auto Urine SS UA pH 6.0 (12/20/21 2:16 PM) Invalid Interpretation Code 5.0 - 8.0 AO Auto Urine SS UA Protein Negative Invalid Interpretation Code Negativemg/d L AO Auto Urine SS UA Spec Grav 1.020 (12/20/21 2:16 PM) Invalid Interpretation Code 1.015-1.025 AO Auto Urine SS UA Specimen Type Clean Catch (12/20/21 2:16 PM) Invalid Interpretation Code AO Auto Urine SS UA Urobilinogen 1.0 E.U./dL Invalid Interpretation Code 0.2-1.0E.U./ dL AO Auto Urine SS Urea nitrogen [Mass/Vol] 11 mg/dL Invalid Interpretation Code 7 - 18 mg/dL AO ADM SS Urea nitrogen/Creatinine [Mass ratio] 10 ratio Invalid Interpretation Code 7 - 27 ratio AO ADM SS WBC (Bld) [#/Vol] 11.5 103/mcL Invalid Interpretation Code 4.6 - 10.8 10^3/mcL AO Workflow SS LABORATORYOrdered By: SYSTEM SYSTEM on 12-20-2021 GFR 60 ml/min/1.73sqm Invalid Interpretation Code AO Chemistry S GFR Non- 50 ml/min/1.73sqm Invalid Interpretation Code AO Chemistry S LABORATORYOrdered By: Jessa corcoran on 11-09-2021 Glucose [Mass/Vol] 90 mg/dL Normal 70 - 110 mg/dL [facility] HbA1c (Bld) [Mass fraction] 5.9 % [facility] Lab Performing Location [facility] LABORATORYOrdered By: Barron Ferris on 06-10-2021 Glucose [Mass/Vol] 125 mg/dL Invalid Interpretation Code 70 - 110 mg/dL [facility] LABORATORYOrdered By: Iris Tabor on 06-01-2021 Glucose [Mass/Vol] 102 mg/dL Normal 70 - 110 mg/dL [facility] Full PFT Study With Bronchod ilatoron 05-27-2020 Name: KAMALA GRAY PatientID: [id number] Gender: Female Birthdate: 1970 Study Date: 05/27/2020 1:49:46 P Age: 49 Race: White or Height: 65.0 in, 165.1 cm Weight: 313.0 lbs, 142.3 kg Smoke Status: Never Pack Years: Tbco Prod: Cigarettes Ordering Physician: [id number] Interpreting Physician: [id number] Proof Carrier: VALENTINA WILSON Testing Location: [facility] Diagnosis: Dyspnea R06.00 Spirometry Units Pred PreDrug Pre%Pred Post Post%Pred %Change FVC L,btps 3.68 1.17 32. 1.39 38. 19. FEV1 L,btps 2.92 0.86 29. 1.02 35. 18. FEV1/FVC (%) % 80. 73. 91. 73. 91. 0. [id number]% L/s 2.86 0.65 23. 0.75 26. 15. FEFmax L/s 6.92 1.93 28. 2.34 34. 21. MVV in,btps 100.56 31.61 31. Lung Volumes (Body Box) Units Pred PreDrug Pre%Pred TLC L,btps 5.45 VC L,btps 3.68 IC L,btps 2.71 FRC L,btps 2.75 ERV L,btps 0.97 RV L,btps 1.77 RV/TLC (%) % 32. VTG L,btps RAW H2O/L/s 1.39 SGaw cmH2O/L 0.26 Diffusion (DLCO) Units Pred PreDrug Pre%Pred DLCO ml/min/mmHg,stpd 24.95 0.06 0. DLCOHb ml/min/mmHg,stpd 24.95 0.06 0. VAsb L,btps 5.32 0.97 18. D/VAsb ml/min/mmHg/L,stpd 4.69 0.06 1. D/VAsbHb ml/min/mmHg/L,stpd 4.69 0.06 1. VInsp L 1.47 Hgb g/dl 13.40 COHb % Nitrogen Washout Units Pred PreDrug Pre%Pred TLC L,btps 5.45 2.92 54. VC L,btps 3.68 1.69 46. FRC L,btps 2.75 1.25 46. IC L,btps 2.71 1.67 62. ERV L,btps 0.97 0.02 2. RV L,btps 1.77 1.23 70. RV/TLC (%) % 32. 42. 130. Lung Mechanics Units Pred PreDrug Pre%Pred PImax /MIP cmH2O -74.22 PEmax /MEP cmH2O 94.31 ROBOTICS MECHANIC NOTES Calibration check passed with acceptable system performance. Spirometry best effort, met acceptability and repeatability guidelines. Patient could not perform diffusing capacity effort successfully. Quality indicators for acceptability, repeatability not met. Multiple attempts. All quality FRC indicators for acceptability and repeatability met. Patient demonstrated good effort and understanding during N2 Washout testing. Albuterol MDI given x 4 puffs per protocol. Home meds include Albuterol, Trelegy and Symbicort. [address]- PRE/[place] [address]- FRC GAS Tests to perform: [id number] - FULL PFT STUDY WITH BRONCHODILATOR PHYSICIAN INTERPRETATION patient could not perform the diffusion capacity maneuver FEV1/FVC ratio is normal. FEV1 is 29% predicted, FVC is 32% predicted. There is marked bronchodilator response in both FEV1 and FVC. Total lung capacity is severely reduced at 54% predicted. RV/TLC ratio is increased suggesting gastrapping Impression Severe restrictive ventilatory defect probably related to morbid obesity. Patient has marked bronchodilator response with evidence of gas trapping. She may also have asthma. Clinical correlation is recommende [facility] Work Phone: [facility] Results From Marquez/Graciela - 05/27/2020 3:38 PM EDT Name: KAMALA GRAY PatientID: [id number] Gender: Female Birthdate: 1970 Study Date: 05/27/2020 1:49:46 P Age: 49 Race: White or Height: 65.0 in, 165.1 cm Weight: 313.0 lbs, 142.3 kg Smoke Status: Never Pack Years: Tbco Prod: Cigarettes Ordering Physician: [id number] Interpreting Physician: [id number] Proof Carrier: VALENTINA WILSON Testing Location: [facility] Diagnosis: Dyspnea R06.00 Spirometry Units Pred PreDrug Pre%Pred Post Post%Pred %Change FVC L,btps 3.68 1.17 32. 1.39 38. 19. FEV1 L,btps 2.92 0.86 29. 1.02 35. 18. FEV1/FVC (%) % 80. 73. 91. 73. 91. 0. [id number]% L/s 2.86 0.65 23. 0.75 26. 15. FEFmax L/s 6.92 1.93 28. 2.34 34. 21. MVV in,btps 100.56 31.61 31. Lung Volumes (Body Box) Units Pred PreDrug Pre%Pred TLC L,btps 5.45 VC L,btps 3.68 IC L,btps 2.71 FRC L,btps 2.75 ERV L,btps 0.97 RV L,btps 1.77 RV/TLC (%) % 32. VTG L,btps RAW H2O/L/s 1.39 SGaw cmH2O/L 0.26 Diffusion (DLCO) Units Pred PreDrug Pre%Pred DLCO ml/min/mmHg,stpd 24.95 0.06 0. DLCOHb ml/min/mmHg,stpd 24.95 0.06 0. VAsb L,btps 5.32 0.97 18. D/VAsb ml/min/mmHg/L,stpd 4.69 0.06 1. D/VAsbHb ml/min/mmHg/L,stpd 4.69 0.06 1. VInsp L 1.47 Hgb g/dl 13.40 COHb % Nitrogen Washout Units Pred PreDrug Pre%Pred TLC L,btps 5.45 2.92 54. VC L,btps 3.68 1.69 46. FRC L,btps 2.75 1.25 46. IC L,btps 2.71 1.67 62. ERV L,btps 0.97 0.02 2. RV L,btps 1.77 1.23 70. RV/TLC (%) % 32. 42. 130. Lung Mechanics Units Pred PreDrug Pre%Pred PImax /MIP cmH2O -74.22 PEmax /MEP cmH2O 94.31 ROBOTICS MECHANIC NOTES Calibration check passed with acceptable system performance. Spirometry best effort, met acceptability and repeatability guidelines. Patient could not perform diffusing capacity effort successfully. Quality indicators for acceptability, repeatability not met. Multiple attempts. All quality FRC indicators for acceptability and repeatability met. Patient demonstrated good effort and understanding during N2 Washout testing. Albuterol MDI given x 4 puffs per protocol. Home meds include Albuterol, Trelegy and Symbicort. [address]- PRE/[place] [address]- FRC GAS Tests to perform: [id number] - FULL PFT STUDY WITH BRONCHODILATOR PHYSICIAN INTERPRETATION patient could not perform the diffusion capacity maneuver FEV1/FVC ratio is normal. FEV1 is 29% predicted, FVC is 32% predicted. There is marked bronchodilator response in both FEV1 and FVC. Total lung capacity is severely reduced at 54% predicted. RV/TLC ratio is increased suggesting gastrapping Impression Severe restrictive ventilatory defect probably related to morbid obesity. Patient has marked bronchodilator response with evidence of gas trapping. She may also have asthma. Clinical correlation is recommende [facility] Work Phone: Vital Signs Date Time Vital Sign Value Performing Clinician Facility 12-20-2023 09:36-0400 Body temperature 97.7 [degF] Whitley Hsieh APRN.[facility] Work Phone: [facility] 12-20-2023 09:36-0400 Body weight 136.2 kg Whitley Hsieh APRN.[facility] Work Phone: [facility] 12-20-2023 09:36-0400 Diastolic blood pressure 84 mm[Hg] Whitley Hsieh APRN.[facility] Work Phone: [facility] 12-20-2023 09:36-0400 Heart rate 88 /min Whitley Hsieh APRN.[facility] Work Phone: [facility] 12-20-2023 09:36-0400 Respiratory rate 18 /min Whitley Hsieh APRN.[facility] Work Phone: [facility] 12-20-2023 09:36-0400 SaO2% (BldA) [Mass fraction] 96 % Whitley Hsieh APRN.[facility] Work Phone: [facility] 12-20-2023 09:36-0400 Systolic blood pressure 130 mm[Hg] Whitley Hsieh BLOOD BANK SPECIALIST.WRAPPING CLERK Work Phone: [facility] 11-27-2023 15:57-0400 Blood Pressure Cuff Size JANINA GAN MD [facility] 11-27-2023 15:57-0400 Blood Pressure Location JANINA GAN MD [facility] 11-27-2023 15:57-0400 Blood Pressure Method JANINA GAN MD [facility] 11-27-2023 15:57-0400 Body temperature 98.42 [degF] JANINA GAN MD [facility] 11-27-2023 15:57-0400 Diastolic Blood Pressure Non-Invasive 73 mm[Hg] JANINA GAN MD [facility] 11-27-2023 15:57-0400 Heart rate 94 /min JANINA GAN MD [facility] 11-27-2023 15:57-0400 Respiratory rate 18 /min JANINA GAN MD [facility] 11-27-2023 15:57-0400 Systolic Blood Pressure Non-Invasive 138 mm[Hg] JANINA GAN MD [facility] 11-24-2023 18:30-0400 Body temperature 98.29 [degF] Yadira Moomadeng BLOOD BANK SPECIALIST.WRAPPING CLERK Work Phone: [facility] 11-24-2023 18:30-0400 Body weight 133.9 kg Yadira Moomaw BLOOD BANK SPECIALIST.WRAPPING CLERK Work Phone: [facility] 11-24-2023 18:30-0400 Diastolic blood pressure 85 mm[Hg] Yadira Moomaw BLOOD BANK SPECIALIST.WRAPPING CLERK Work Phone: [facility] 11-24-2023 18:30-0400 Heart rate 110 /min Yadira Moomaw BLOOD BANK SPECIALIST.WRAPPING CLERK Work Phone: [facility] 11-24-2023 18:30-0400 Respiratory rate 18 /min Yadira Moomaw BLOOD BANK SPECIALIST.WRAPPING CLERK Work Phone: [facility] 11-24-2023 18:30-0400 SaO2% (BldA) [Mass fraction] 100 % Yadira Moomaw BLOOD BANK SPECIALIST.WRAPPING CLERK Work Phone: [facility] 11-24-2023 18:30-0400 Systolic blood pressure 125 mm[Hg] Yadira Moomaw BLOOD BANK SPECIALIST.WRAPPING CLERK Work Phone: [facility] 09-21-2023 11:37-0400 Body temperature 97.16 [degF] LAURA RICHARDSON MD [facility] 09-21-2023 11:37-0400 Body weight 136.4 kg LAURA RICHARDSON MD [facility] 09-21-2023 11:37-0400 Diastolic Blood Pressure Non-Invasive 88 mm[Hg] LAURA RICHARDSON MD [facility] 09-21-2023 11:37-0400 Heart rate 86 /min LAURA RICHARDSON MD [facility] 09-21-2023 11:37-0400 Respiratory rate 18 /min LAURA RICHARDSON MD [facility] 09-21-2023 11:37-0400 Systolic Blood Pressure Non-Invasive 151 mm[Hg] LAURA RICHARDSON MD [facility] 09-05-2023 22:04-0400 Diastolic Blood Pressure Non-Invasive 73 mm[Hg] DR MATHIEU BARRETT MD [facility] 09-05-2023 22:04-0400 Heart rate 98 /min DR MATHIEU BARRETT MD [facility] 09-05-2023 22:04-0400 Respiratory rate 18 /min DR MATHIEU BARRETT MD [facility] 09-05-2023 22:04-0400 Systolic Blood Pressure Non-Invasive 117 mm[Hg] DR MATHIEU BARRETT MD [facility] 09-05-2023 20:55-0400 Heart rate 98 /min DR MATHIEU BARRETT MD [facility] 09-05-2023 20:55-0400 Respiratory rate 20 /min DR MATHIEU BARRETT MD [facility] 09-05-2023 20:45-0400 Diastolic Blood Pressure Non-Invasive 76 mm[Hg] DR MATHIEU BARRETT MD [facility] 09-05-2023 20:45-0400 Heart rate 101 /min DR MATHIEU BARRETT MD [facility] 09-05-2023 20:45-0400 Respiratory rate 22 /min DR MATHIEU BARRETT MD [facility] 09-05-2023 20:45-0400 Systolic Blood Pressure Non-Invasive 114 mm[Hg] DR MATHIEU BARRETT MD [facility] 09-05-2023 18:34-0400 Body temperature 97.16 [degF] DR MATHIEU BARRETT MD [facility] 09-05-2023 18:34-0400 Diastolic Blood Pressure Non-Invasive 100 mm[Hg] DR MATHIEU BARRETT MD [facility] 09-05-2023 18:34-0400 Systolic Blood Pressure Non-Invasive 160 mm[Hg] DR MATHIEU BARRETT MD [facility] 08-22-2023 11:07-0400 Heart rate 85 /min ILANA FROMMELT DO [facility] 08-22-2023 11:07-0400 Respiratory rate 16 /min ILANA FROMMELT DO [facility] 08-22-2023 10:26-0400 Body height 162.6 cm ILANA FROMMELT DO [facility] 08-22-2023 10:26-0400 Body temperature 98.78 [degF] ILANA FROMMELT DO [facility] 08-22-2023 10:26-0400 Body weight 137.8 kg ILANA FROMMELT DO [facility] 08-22-2023 10:26-0400 Diastolic Blood Pressure Non-Invasive 114 mm[Hg] ILANA FROMMELT DO [facility] 08-22-2023 10:26-0400 Heart rate 98 /min ILANA FROMMELT DO [facility] 08-22-2023 10:26-0400 Respiratory rate 20 /min ILANA FROMMELT DO [facility] 08-22-2023 10:26-0400 Systolic Blood Pressure Non-Invasive 180 mm[Hg] ILANA FROMMELT DO [facility] 08-16-2023 19:03-0400 Diastolic Blood Pressure Non-Invasive 78 mm[Hg] DR MATHIEU BARRETT MD [facility] 08-16-2023 19:03-0400 Heart rate 80 /min DR MATHIEU BARRETT MD [facility] 08-16-2023 19:03-0400 Respiratory rate 18 /min DR MATHIEU BARRETT MD [facility] 08-16-2023 19:03-0400 Systolic Blood Pressure Non-Invasive 143 mm[Hg] DR MATHIEU BARRETT MD [facility] 08-16-2023 13:56-0400 Diastolic Blood Pressure Non-Invasive 83 mm[Hg] DR MATHIEU BARRETT MD [facility] 08-16-2023 13:56-0400 Heart rate 79 /min DR MATHIEU BARRETT MD [facility] 08-16-2023 13:56-0400 Mean blood pressure 103 mm[Hg] DR MATHIEU BARRETT MD [facility] 08-16-2023 13:56-0400 Respiratory rate 18 /min DR MATHIEU BARRETT MD [facility] 08-16-2023 13:56-0400 Systolic Blood Pressure Non-Invasive 146 mm[Hg] DR MATHIEU BARRETT MD [facility] 08-16-2023 13:04-[address] MATHIEU BARRETT MD [facility] 08-16-2023 13:04-0400 Body height [address] MATHIEU BARRETT MD [facility] 08-16-2023 13:04-0400 Body temperature 98.6 [degF] DR MATHIEU BARRETT MD [facility] 08-16-2023 13:04-0400 Body weight 139.[address] MATHIEU BARRETT MD [facility] 08-16-2023 13:04-0400 Diastolic Blood Pressure Non-Invasive 118 mm[Hg] DR MATHIEU BARRETT MD [facility] 08-16-2023 13:04-0400 Heart rate 88 /min DR MATHIEU BARRETT MD [facility] 08-16-2023 13:04-0400 Respiratory rate 18 /min DR MATHIEU BARRETT MD [facility] 08-16-2023 13:04-0400 Systolic Blood Pressure Non-Invasive 166 mm[Hg] DR MATHIEU BARRETT MD [facility] 08-14-2023 17:51-0400 Heart rate 86 /min DR OMEGA OCHOA DO [facility] 08-14-2023 17:51-0400 Respiratory rate 20 /min DR OMEGA OCHOA DO [facility] 08-14-2023 17:37-0400 Diastolic Blood Pressure Non-Invasive 97 mm[Hg] DR OMEGA OCHOA DO [facility] 08-14-2023 17:37-0400 Heart rate 101 /min DR OMEGA OCHOA DO [facility] 08-14-2023 17:37-0400 Respiratory rate 22 /min DR OMEGA OCHOA DO [facility] 08-14-2023 17:37-0400 Systolic Blood Pressure Non-Invasive 160 mm[Hg] DR OMEGA OCHOA DO [facility] 08-14-2023 15:42-[address] OMEGA OCHOA DO [facility] 08-14-2023 15:42-0400 Body temperature 97.7 [degF] DR OMEGA OCHOA DO [facility] 08-14-2023 15:42-0400 Diastolic Blood Pressure Non-Invasive 98 mm[Hg] DR OMEGA OCHOA DO [facility] 08-14-2023 15:42-0400 Heart rate 102 /min DR OMEGA OCHOA DO [facility] 08-14-2023 15:42-0400 Respiratory rate 20 /min DR OMEGA OCHOA DO [facility] 08-14-2023 15:42-0400 Systolic Blood Pressure Non-Invasive 170 mm[Hg] DR OMEGA OCHOA DO [facility] 08-06-2023 16:58-0400 Diastolic Blood Pressure Non-Invasive 99 mm[Hg] ILANA FROMMELT DO [facility] 08-06-2023 16:58-0400 Heart rate 83 /min ILANA FROMMELT DO [facility] 08-06-2023 16:58-0400 Systolic Blood Pressure Non-Invasive 145 mm[Hg] ILANA FROMMELT DO [facility] 08-06-2023 16:01-0400 Diastolic Blood Pressure Non-Invasive 90 mm[Hg] ILANA FROMMELT DO [facility] 08-06-2023 16:01-0400 Heart rate 89 /min ILANA FROMMELT DO [facility] 06-08-2024 16:01-0400 Reason For Taking VItal Signs ILANA FROMMELT DO [facility] 08-06-2023 16:01-0400 Respiratory rate 20 /min ILANA FROMMELT DO [facility] 08-06-2023 16:01-0400 Systolic Blood Pressure Non-Invasive 139 mm[Hg] ILANA FROMMELT DO [facility] 08-06-2023 13:43-0400 Body temperature 98.78 [degF] ILANA FROMMELT DO [facility] 08-06-2023 13:43-0400 Diastolic Blood Pressure Non-Invasive 100 mm[Hg] ILANA FROMMELT DO [facility] 08-06-2023 13:43-0400 Heart rate 87 /min ILANA POLANCOMELT DO [facility] 08-06-2023 13:43-0400 Respiratory rate 22 /min ILANA BRUSHT DO [facility] 08-06-2023 13:43-0400 Systolic Blood Pressure Non-Invasive 168 mm[Hg] ILANA POLANCOMELT DO [facility] 2023 19:56-0400 Diastolic Blood Pressure Non-Invasive 83 mm[Hg] NIDAL CHOUJAA DO [facility] 2023 19:56-0400 Heart rate 84 /min NIDAL CHOUJAA DO [facility] 2023 19:56-0400 Reason For Taking VItal Signs NIDAL CHOUJAA DO [facility] 2023 19:56-0400 Respiratory rate 18 /min NIDAL CHOUJAA DO [facility] 2023 19:56-0400 Systolic Blood Pressure Non-Invasive 150 mm[Hg] NIDAL CHOUJAA DO [facility] 2023 19:00-0400 Diastolic Blood Pressure Non-Invasive 84 mm[Hg] NIDAL CHOUJAA DO [facility] 2023 19:00-0400 Heart rate 78 /min NIDAL CHOUJAA DO [facility] 2023 19:00-0400 Systolic Blood Pressure Non-Invasive 164 mm[Hg] NIDAL CHOUJAA DO [facility] 2023 17:10-0400 Diastolic Blood Pressure Non-Invasive 88 mm[Hg] NIDAL CHOUJAA DO [facility] 2023 17:10-0400 Reason For Taking VItal Signs NIDAL CHOUJAA DO [facility] 2023 17:10-0400 Respiratory rate 18 /min NIDAL CHOUJAA DO [facility] 2023 17:10-0400 Systolic Blood Pressure Non-Invasive 169 mm[Hg] NIDAL CHOUJAA DO [facility] 2023 14:36-0400 Body temperature 98.42 [degF] NIDAL CHOUJAA DO [facility] 2023 14:36-0400 Heart rate 72 /min NIDAL CHOUJAA DO [facility] 07-19-2023 13:18-0400 Diastolic blood pressure 72 mm[Hg] LIA SHASHA MD [facility] 07-19-2023 13:18-0400 Heart rate 72 /min LIA PULLIAM MD [facility] 07-19-2023 13:18-0400 Respiratory rate 18 /min LIA PULLIAM MD [facility] 07-19-2023 13:18-0400 Systolic blood pressure 138 mm[Hg] LIA PULLIAM MD [facility] 07-19-2023 12:28-0400 Diastolic Blood Pressure Non-Invasive 80 mm[Hg] LIA PULLIAM MD [facility] 07-19-2023 12:28-0400 Heart rate 70 /min LIA PULLIAM MD [facility] 07-19-2023 12:28-0400 Respiratory rate 16 /min LIA PULLIAM MD [facility] 07-19-2023 12:28-0400 Systolic Blood Pressure Non-Invasive 140 mm[Hg] LIA PULLIAM MD [facility] 07-19-2023 09:11-0400 Body temperature 98.06 [degF] LIA PULLIAM MD [facility] 07-19-2023 09:11-0400 Diastolic Blood Pressure Non-Invasive 100 mm[Hg] LIA PULLIAM MD [facility] 07-19-2023 09:11-0400 Heart rate 75 /min LIA PULLIAM MD [facility] 07-19-2023 09:11-0400 Respiratory rate 16 /min LIA PULLIAM MD [facility] 07-19-2023 09:11-0400 Systolic Blood Pressure Non-Invasive 155 mm[Hg] LIA PULLIAM MD [facility] 07-03-2023 19:35-0400 Diastolic Blood Pressure Non-Invasive 92 mm[Hg] AUDRA REICHFIELD DO [facility] 07-03-2023 19:35-0400 Heart rate 83 /min AUDRA REICHFIELD DO [facility] 07-03-2023 19:35-0400 Reason For Taking VItal Signs AUDRA REICHFIELD DO [facility] 07-03-2023 19:35-0400 Respiratory rate 20 /min AUDRA REICHFIELD DO [facility] 07-03-2023 19:35-0400 Systolic Blood Pressure Non-Invasive 156 mm[Hg] AUDRA REICHFIELD DO [facility] 07-03-2023 18:55-0400 Heart rate 81 /min AUDRA REICHFIELD DO [facility] 07-03-2023 18:55-0400 Respiratory rate 18 /min AUDRA REICHFIELD DO [facility] 07-03-2023 17:38-0400 Blood Pressure Cuff Size AUDRA REICHFIELD DO [facility] 07-03-2023 17:38-0400 Blood Pressure Location AUDRA REICHFIELD DO [facility] 07-03-2023 17:38-0400 Blood Pressure Method AUDRA REICHFIELD D O [facility] 07-03-2023 17:38-0400 Body temperature 98.6 [degF] AUDRA REICHFIELD DO [facility] 07-03-2023 17:38-0400 Diastolic Blood Pressure Non-Invasive 95 mm[Hg] AUDRA REICHFIELD DO [facility] 07-03-2023 17:38-0400 Heart rate 81 /min AUDRA REICHFIELD DO [facility] 07-03-2023 17:38-0400 Respiratory rate 18 /min AUDRA REICHFIELD DO [facility] 07-03-2023 17:38-0400 Systolic Blood Pressure Non-Invasive 150 mm[Hg] AUDRA REICHFIELD DO [facility] 06-20-2023 12:12-0400 Body temperature 98.01 [degF] Krislyn Aberegg PA Work Phone: [facility] 06-20-2023 12:12-0400 Body weight 132 kg Krislyn Aberegg PA Work Phone: [facility] 06-20-2023 12:12-0400 Diastolic blood pressure 76 mm[Hg] Krislyn Aberegg PA Work Phone: [facility] 06-20-2023 12:12-0400 Heart rate 86 /min Krislyn Aberegg PA Work Phone: [facility] 06-20-2023 12:12-0400 Respiratory rate 18 /min Krislyn Aberegg PA Work Phone: [facility] 06-20-2023 12:12-0400 SaO2% (BldA) [Mass fraction] 97 % Krislyn Aberegg PA Work Phone: [facility] 06-20-2023 12:12-0400 Systolic blood pressure 126 mm[Hg] Krislyn Aberegg PA Work Phone: [facility] 05-13-2023 16:43-0400 Diastolic Blood Pressure Non-Invasive 104 mm[Hg] LIA PULLIAM MD [facility] 05-13-2023 16:43-0400 Heart rate 86 /min LIA PULLIAM MD [facility] 05-13-2023 16:43-0400 Respiratory rate 20 /min LIA PULLIAM MD [facility] 05-13-2023 16:43-0400 Systolic Blood Pressure Non-Invasive 154 mm[Hg] LIA PULLIAM MD [facility] 05-13-2023 16:06-0400 Diastolic Blood Pressure Non-Invasive 102 mm[Hg] LIA PULLIAM MD [facility] 05-13-2023 16:06-0400 Heart rate 82 /min LIA PULLIAM MD [facility] 05-13-2023 16:06-0400 Respiratory rate 14 /min LIA PULLIAM MD [facility] 05-13-2023 16:06-0400 Systolic Blood Pressure Non-Invasive 160 mm[Hg] LIA PULLIAM MD [facility] 05-13-2023 15:54-0400 Body temperature 98.24 [degF] LIA PULLIAM MD [facility] 05-13-2023 15:54-0400 Body weight 141.2 kg LIA PULLIAM MD [facility] 05-13-2023 15:54-0400 Diastolic Blood Pressure Non-Invasive 103 mm[Hg] LIA PULLIAM MD [facility] 05-13-2023 15:54-0400 Heart rate 89 /min LIA PULLIAM MD [facility] 05-13-2023 15:54-0400 Respiratory rate 18 /min LIA PULLIAM MD [facility] 05-13-2023 15:54-0400 Systolic Blood Pressure Non-Invasive 186 mm[Hg] LIA PULLIAM MD [facility] 05-13-2023 14:34-0400 Body temperature 96.91 [degF] Tracee Chakraborty BLOOD BANK SPECIALIST.WRAPPING CLERK Work Phone: [facility] 05-13-2023 14:34-0400 Body weight 130.7 kg Tracee Chakraborty BLOOD BANK SPECIALIST.WRAPPING CLERK Work Phone: [facility] 05-13-2023 14:34-0400 Diastolic blood pressure 90 mm[Hg] Tracee Chakraborty BLOOD BANK SPECIALIST.WRAPPING CLERK Work Phone: [facility] 05-13-2023 14:34-0400 Heart rate 85 /min Tracee Chakraborty BLOOD BANK SPECIALIST.WRAPPING CLERK Work Phone: [facility] 05-13-2023 14:34-0400 Respiratory rate 16 /min Tracee Chakraborty BLOOD BANK SPECIALIST.WRAPPING CLERK Work Phone: [facility] 05-13-2023 14:34-0400 SaO2% (BldA) [Mass fraction] 99 % Tracee Chakraborty BLOOD BANK SPECIALIST.WRAPPING CLERK Work Phone: [facility] 05-13-2023 14:34-0400 Systolic blood pressure 180 mm[Hg] Tracee Chakraborty BLOOD BANK SPECIALIST.WRAPPING CLERK Work Phone: [facility] 05-04-2023 12:34-0500 Body temperature 97.7 [degF] Isaac Valentine BLOOD BANK SPECIALIST.WRAPPING CLERK Work Phone: [facility] 05-04-2023 12:34-0500 Body weight 138.8 kg Isaac Valentine BLOOD BANK SPECIALIST.WRAPPING CLERK Work Phone: [facility] 05-04-2023 12:34-0500 Diastolic blood pressure 84 mm[Hg] [facility] BLOOD BANK SPECIALIST.WRAPPING CLERK Work Phone: [facility] 05-04-2023 12:34-0500 Heart rate 82 /min [facility] BLOOD BANK SPECIALIST.WRAPPING CLERK Work Phone: [facility] 05-04-2023 12:34-0500 Respiratory rate 18 /min [facility] BLOOD BANK SPECIALIST.WRAPPING CLERK Work Phone: [facility] 05-04-2023 12:34-0500 SaO2% (BldA) [Mass fraction] 100 % [facility] BLOOD BANK SPECIALIST.WRAPPING CLERK Work Phone: [facility] 05-04-2023 12:34-0500 Systolic blood pressure 132 mm[Hg] [facility] BLOOD BANK SPECIALIST.WRAPPING CLERK Work Phone: [facility] 04-29-2023 13:19-0500 Diastolic Blood Pressure Non-Invasive 76 mm[Hg] LAURA RICHARDSON MD [facility] 04-29-2023 13:19-0500 Heart rate 78 /min LAURA RICHARDSON MD [facility] 04-29-2023 13:19-0500 Respiratory rate 16 /min LAURA RICHARDSON MD [facility] 04-29-2023 13:19-0500 Systolic Blood Pressure Non-Invasive 134 mm[Hg] LAURA RICHARDSON MD [facility] 04-29-2023 10:30-0500 Body temperature 98.6 [degF] LAURA RICHARDSON MD [facility] 04-29-2023 10:30-0500 Body weight 134.7 kg LAURA RICHARDSON MD [facility] 04-29-2023 10:30-0500 Diastolic Blood Pressure Non-Invasive 100 mm[Hg] LAURA RICHARDSON MD [facility] 04-29-2023 10:30-0500 Heart rate 83 /min LAURA RICHARDSON MD [facility] 04-29-2023 10:30-0500 Respiratory rate 18 /min LAURA RICHARDSON MD [facility] 04-29-2023 10:30-0500 Systolic Blood Pressure Non-Invasive 159 mm[Hg] LAURA RICHARDSON MD [facility] 04-21-2023 13:06-0500 Heart rate 75 /min ILANA FROMMELT DO [facility] 04-21-2023 13:06-0500 Respiratory rate 16 /min ILANA FROMMELT DO [facility] 04-21-2023 12:56-0500 Heart rate 77 /min ILANA FROMMELT DO [facility] 04-21-2023 12:56-0500 Respiratory rate 16 /min ILANA FROMMELT DO [facility] 04-21-2023 12:46-0500 Heart rate 76 /min ILANA FROMMELT DO [facility] 04-21-2023 12:46-0500 Respiratory rate 16 /min ILANA FROMMELT DO [facility] 04-21-2023 11:44-0500 Body height 162.6 cm ILANA FROMMELT DO [facility] 04-21-2023 11:44-0500 Body temperature 96.98 [degF] ILANA MORGAN DO [facility] 04-21-2023 11:44-0500 Body weight 132 kg ILANA MORGAN DO [facility] 04-21-2023 11:44-0500 Diastolic Blood Pressure Non-Invasive 105 mm[Hg] ILANA MORGAN DO [facility] 04-21-2023 11:44-0500 Systolic Blood Pressure Non-Invasive 147 mm[Hg] ILANA MORGAN DO [facility] 04-20-2023 15:33-0500 Diastolic Blood Pressure Non-Invasive 96 mm[Hg] DR DAQUAN MAI MD [facility] 04-20-2023 15:33-0500 Heart rate 87 /min DR DAQUAN MAI MD [facility] 04-20-2023 15:33-0500 Reason For Taking VItal Signs DR DAQUAN MAI MD [facility] 04-20-2023 15:33-0500 Respiratory rate 16 /min DR DAQUAN MAI MD [facility] 04-20-2023 15:33-0500 Systolic Blood Pressure Non-Invasive 149 mm[Hg] DR DAQUAN MAI MD [facility] 04-20-2023 14:45-0500 Diastolic Blood Pressure Non-Invasive 92 mm[Hg] DR DAQUAN MAI MD [facility] 04-20-2023 14:45-0500 Heart rate 83 /min DR DAQUAN MAI MD [facility] 04-20-2023 14:45-0500 Reason For Taking VItal Signs DR DAQUAN MAI MD [facility] 04-20-2023 14:45-0500 Respiratory rate 16 /min DR DAQUAN MAI MD [facility] 04-20-2023 14:45-0500 Systolic Blood Pressure Non-Invasive 138 mm[Hg] DR DAQUAN MAI MD [facility] 04-20-2023 13:20-0500 Diastolic Blood Pressure Non-Invasive 98 mm[Hg] DR DAQUAN MAI MD [facility] 04-20-2023 13:20-0500 Heart rate 84 /min DR DAQUAN MAI MD [facility] 04-20-2023 13:20-0500 Reason For Taking VItal Signs DR DAQUAN MAI MD [facility] 04-20-2023 13:20-0500 Respiratory rate 20 /min DR DAQUAN MAI MD [facility] 04-20-2023 13:20-0500 Systolic Blood Pressure Non-Invasive 155 mm[Hg] DR DAQUAN MAI MD [facility] 04-20-2023 11:19-0500 Blood Pressure Cuff Size DR DAQUAN MAI MD [facility] 04-20-2023 11:19-[address] DAQUAN MAI MD [facility] 04-20-2023 11:19-[address] DAQUAN MAI MD [facility] 04-20-2023 11:19-0500 Body height 165.[address] DAQUAN MAI MD [facility] 04-20-2023 11:19-0500 Body temperature 97.7 [degF] DR DAQUAN MAI MD [facility] 04-20-2023 11:19-0500 Body weight 131.[address] DAQUAN MAI MD [facility] 04-20-2023 11:19-0500 Heart rate 80 /min DR DAQUAN MAI MD [facility] 04-15-2023 15:10-0500 Body temperature 97.81 [degF] Satnam Rodriguez BLOOD BANK SPECIALIST.WRAPPING CLERK Work Phone: [facility] 04-15-2023 15:10-0500 Body weight 134.72 kg Satnam Michael BLOOD BANK SPECIALIST.WRAPPING CLERK Work Phone: [facility] 04-15-2023 15:10-0500 Diastolic blood pressure 95 mm[Hg] Satnam Michael BLOOD BANK SPECIALIST.WRAPPING CLERK Work Phone: [facility] 04-15-2023 15:10-0500 Heart rate 94 /min Satnam Michael BLOOD BANK SPECIALIST.WRAPPING CLERK Work Phone: [facility] 04-15-2023 15:10-0500 Respiratory rate 18 /min Satnam Michael BLOOD BANK SPECIALIST.WRAPPING CLERK Work Phone: [facility] 04-15-2023 15:10-0500 SaO2% (BldA) [Mass fraction] 99 % Satnam Michael BLOOD BANK SPECIALIST.WRAPPING CLERK Work Phone: [facility] 04-15-2023 15:10-0500 Systolic blood pressure 144 mm[Hg] Satnam Michael BLOOD BANK SPECIALIST.WRAPPING CLERK Work Phone: [facility] 04-03-2023 18:57-0500 Diastolic Blood Pressure Non-Invasive 118 mm[Hg] DR DEBBIE CHATMAN DO [facility] 04-03-2023 18:57-0500 Heart rate 97 /min DR DEBBIE CHATMAN DO [facility] 04-03-2023 18:57-0500 Respiratory rate 16 /min DR DEBBIE CHATMAN DO [facility] 04-03-2023 18:57-0500 Systolic Blood Pressure Non-Invasive 157 mm[Hg] DR DEBBIE CHATMAN DO [facility] 04-03-2023 17:17-0500 Diastolic Blood Pressure Non-Invasive 106 mm[Hg] DR DEBBIE CHATMAN DO [facility] 04-03-2023 17:17-0500 Heart rate 83 /min DR DEBBIE CHATMAN DO [facility] 04-03-2023 17:17-0500 Respiratory rate 16 /min DR DEBBIE CHATMAN DO [facility] 04-03-2023 17:17-0500 Systolic Blood Pressure Non-Invasive 153 mm[Hg] DR DEBBIE CHATMAN DO [facility] 04-03-2023 16:35-0500 Body temperature 96.98 [degF] DR DEBBIE CHATMAN DO [facility] 04-03-2023 16:35-0500 Diastolic Blood Pressure Non-Invasive 124 mm[Hg] DR DEBBIE CHATMAN DO [facility] 04-03-2023 16:35-0500 Heart rate 92 /min DR DEBBIE CHATMAN DO [facility] 04-03-2023 16:35-0500 Respiratory rate 16 /min DR DEBBIE CHATMAN DO [facility] 04-03-2023 16:35-0500 Systolic Blood Pressure Non-Invasive 169 mm[Hg] DR DEBBIE CHATMAN DO [facility] 03-31-2023 10:47-0500 Body temperature 98.01 [degF] Whitley Praisler-Wood BLOOD BANK SPECIALIST.WRAPPING CLERK Work Phone: [facility] 03-31-2023 10:47-0500 Body weight 127.32 kg Whitley Praisler-Wood BLOOD BANK SPECIALIST.WRAPPING CLERK Work Phone: [facility] 03-31-2023 10:47-0500 Diastolic blood pressure 82 mm[Hg] Whitley Praisler-Wood BLOOD BANK SPECIALIST.WRAPPING CLERK Work Phone: [facility] 03-31-2023 10:47-0500 Heart rate 97 /min Whitley Praisler-Wood BLOOD BANK SPECIALIST.WRAPPING CLERK Work Phone: [facility] 03-31-2023 10:47-0500 Respiratory rate 18 /min Hwitley Praisler-Wood BLOOD BANK SPECIALIST.WRAPPING CLERK Work Phone: [facility] 03-31-2023 10:47-0500 SaO2% (BldA) [Mass fraction] 96 % Whitley Praisler-Wood BLOOD BANK SPECIALIST.WRAPPING CLERK Work Phone: [facility] 03-31-2023 10:47-0500 Systolic blood pressure 122 mm[Hg] Whitley Praisler-Wood BLOOD BANK SPECIALIST.WRAPPING CLERK Work Phone: [facility] 03-28-2023 13:08-0500 Blood Pressure Location MARIZA QUINONEZ MD [facility] 03-28-2023 13:08-0500 Blood Pressure Method MARIZA QUINONEZ MD [facility] 03-28-2023 13:08-0500 Diastolic Blood Pressure Non-Invasive 99 mm[Hg] MARIZA QUINONEZ MD [facility] 03-28-2023 13:08-0500 Heart rate 99 /min MARIZA QUINONEZ MD [facility] 03-28-2023 13:08-0500 Respiratory rate 18 /min MARIZA QUINONEZ MD [facility] 03-28-2023 13:08-0500 Systolic Blood Pressure Non-Invasive 153 mm[Hg] MARIZA QUINONEZ MD [facility] 03-28-2023 12:00-0500 Diastolic Blood Pressure Non-Invasive 92 mm[Hg] MARIZA QUINONEZ MD [facility] 03-28-2023 12:00-0500 Heart rate 103 /min MARIZA QUINONEZ MD [facility] 03-28-2023 12:00-0500 Systolic Blood Pressure Non-Invasive 155 mm[Hg] MARIZA QUINONEZ MD [facility] 03-28-2023 11:06-0500 Blood Pressure Location MARIZA QUINONEZ MD [facility] 03-28-2023 11:06-0500 Blood Pressure Method MARIZA QUINONEZ MD [facility] 03-28-2023 11:06-0500 Diastolic Blood Pressure Non-Invasive 93 mm[Hg] MARIZA QUINONEZ MD [facility] 03-28-2023 11:06-0500 Heart rate 105 /min MARIZA QUINONEZ MD [facility] 03-28-2023 11:06-0500 Respiratory rate 20 /min MARIZA QUINONEZ MD [facility] 03-28-2023 11:06-0500 Systolic Blood Pressure Non-Invasive 149 mm[Hg] MARIZA QUINONEZ MD [facility] 03-28-2023 09:00-0500 Body temperature 97.7 [degF] MARIZA QUINONEZ MD [facility] 03-23-2023 18:58-0500 Diastolic Blood Pressure Non-Invasive 60 mm[Hg] LAURA RICHARDSON MD [facility] 03-23-2023 18:58-0500 Heart rate 77 /min LAURA RICHARDSON MD [facility] 03-23-2023 18:58-0500 Respiratory rate 20 /min LAURA RICHARDSON MD [facility] 03-23-2023 18:58-0500 Systolic Blood Pressure Non-Invasive 100 mm[Hg] LAURA RICHARDSON MD [facility] 03-23-2023 17:37-0500 Body height 165.1 cm LAURA RICHARDSON MD [facility] 03-23-2023 17:37-0500 Body temperature 96.8 [degF] LAURA RICHARDSON MD [facility] 03-23-2023 17:37-0500 Body weight 128.5 kg LAURA RICHARDSON MD [facility] 03-23-2023 17:37-0500 Diastolic Blood Pressure Non-Invasive 95 mm[Hg] LAURA RICHARDSON MD [facility] 03-23-2023 17:37-0500 Heart rate 85 /min LAURA RICHARDSON MD [facility] 03-23-2023 17:37-0500 Respiratory rate 18 /min LAURA RICHARDSON MD [facility] 03-23-2023 17:37-0500 Systolic Blood Pressure Non-Invasive 154 mm[Hg] LAURA RICHARDSON MD [facility] 03-11-2023 11:49-0500 Blood Pressure Method OSCAR VEGA BLOOD BANK SPECIALIST-WRAPPING CLERK [facility] 03-11-2023 11:49-0500 Diastolic Blood Pressure Non-Invasive 52 mm[Hg] OSCAR VEGA BLOOD BANK SPECIALIST-WRAPPING CLERK [facility] 03-11-2023 11:49-0500 Systolic Blood Pressure Non-Invasive 90 mm[Hg] OSCAR CELSOANDREW BLOOD BANK SPECIALIST-WRAPPING CLERK [facility] 03-11-2023 11:05-0500 Body temperature 98.24 [degF] OSCAR VEGA BLOOD BANK SPECIALIST-WRAPPING CLERK [facility] 03-11-2023 11:05-0500 Heart rate 74 /min OSCAR VEGA BLOOD BANK SPECIALIST-WRAPPING CLERK [facility] 03-11-2023 11:05-0500 Reason For Taking VItal Signs OSCAR VEGA BLOOD BANK SPECIALIST-WRAPPING CLERK [facility] 03-11-2023 11:05-0500 Respiratory rate 16 /min OSCAR VEGA BLOOD BANK SPECIALIST-WRAPPING CLERK [facility] 03-11-2023 10:00-0500 Heart rate 80 /min OSCAR VEGA BLOOD BANK SPECIALIST-WRAPPING CLERK [facility] 03-11-2023 07:54-0500 Diastolic Blood Pressure Non-Invasive 62 mm[Hg] OSCAR VEGA BLOOD BANK SPECIALIST-WRAPPING CLERK [facility] 03-11-2023 07:54-0500 Respiratory rate 16 /min OSCAR VEGA BLOOD BANK SPECIALIST-WRAPPING CLERK [facility] 03-11-2023 07:54-0500 Systolic Blood Pressure Non-Invasive 98 mm[Hg] OSCAR VEGA BLOOD BANK SPECIALIST-WRAPPING CLERK [facility] 03-11-2023 07:28-0500 Body temperature 97.88 [degF] OSCAR VEGA BLOOD BANK SPECIALIST-WRAPPING CLERK [facility] 03-11-2023 07:28-0500 Diastolic Blood Pressure Non-Invasive 50 mm[Hg] OSCAR FERRISMiriam BLOOD BANK SPECIALIST-WRAPPING CLERK [facility] 03-11-2023 07:28-0500 Heart rate 62 /min OSCAR FERRISMiriam BLOOD BANK SPECIALIST-WRAPPING CLERK [facility] 03-11-2023 07:28-0500 Reason For Taking VItal Signs OSCAR FERRISMiriam BLOOD BANK SPECIALIST-WRAPPING CLERK [facility] 03-11-2023 07:28-0500 Systolic Blood Pressure Non-Invasive 70 mm[Hg] OSCAR VEGA BLOOD BANK SPECIALIST-WRAPPING CLERK [facility] 03-11-2023 06:07-0500 Heart rate 72 /min OSCAR FRERISMiriam BLOOD BANK SPECIALIST-WRAPPING CLERK [facility] 03-11-2023 03:48-0500 Body temperature 96.8 [degF] OSCAR FERRISMiriam BLOOD BANK SPECIALIST-WRAPPING CLERK [facility] 03-11-2023 03:48-0500 Reason For Taking VItal Signs OSCAR FERRISMiriam BLOOD BANK SPECIALIST-WRAPPING CLERK [facility] 03-10-2023 19:38-0500 Body temperature 97.7 [degF] OSCAR VEGA BLOOD BANK SPECIALIST-WRAPPING CLERK [facility] 03-10-2023 15:28-0500 Body temperature 97.52 [degF] OSCAR VEGA BLOOD BANK SPECIALIST-WRAPPING CLERK [facility] 03-10-2023 15:28-0500 Heart rate 65 /min OSCAR FERRISMiriam BLOOD BANK SPECIALIST-WRAPPING CLERK [facility] 03-10-2023 11:32-0500 Heart rate 78 /min OSCAR FERRISN BLOOD BANK SPECIALIST-WRAPPING CLERK [facility] 03-10-2023 06:19-0500 Body height 162 cm OSCAR FERRISMiriam BLOOD BANK SPECIALIST-WRAPPING CLERK [facility] 03-10-2023 03:05-0500 Blood Pressure Location OSCARYO FERRISN BLOOD BANK SPECIALIST-WRAPPING CLERK [facility] 03-10-2023 03:05-0500 Blood Pressure Method OSCAR FERRISN BLOOD BANK SPECIALIST-WRAPPING CLERK [facility] 03-09-2023 21:45-0500 Blood Pressure Location OSCARYO VEGA BLOOD BANK SPECIALIST-WRAPPING CLERK [facility] 03-09-2023 21:45-0500 Blood Pressure Method OSCAR FERRISN BLOOD BANK SPECIALIST-WRAPPING CLERK [facility] 03-09-2023 21:40-0500 Body height 162 cm OSCAR FERRISMiriam BLOOD BANK SPECIALIST-WRAPPING CLERK [facility] 03-09-2023 21:40-0500 Body weight 130.7 kg OSCAR FERRISMiriam BLOOD BANK SPECIALIST-WRAPPING CLERK [facility] 03-09-2023 21:40-0500 Body weight 49.8 kg/m2 OSCARYO HOUSTONNEN BLOOD BANK SPECIALIST-WRAPPING CLERK [facility] 03-09-2023 17:51-0500 Blood Pressure Location OSCAR GARY OBRIEN-WRAPPING CLERK [facility] 03-05-2023 09:52-0500 Blood Pressure Location ELIAN DICKSON MD [facility] 03-05-2023 09:52-0500 Body temperature 97.16 [degF] ELIAN DICKSON MD [facility] 03-05-2023 09:52-0500 Diastolic Blood Pressure Non-Invasive 85 mm[Hg] ELIAN DICKSON MD [facility] 03-05-2023 09:52-0500 Heart rate 77 /min ELIAN DICKSON MD [facility] 03-05-2023 09:52-0500 Respiratory rate 77 /min ELIAN DICKSON MD [facility] 03-05-2023 09:52-0500 Systolic Blood Pressure Non-Invasive 133 mm[Hg] ELIAN DICKSON MD [facility] 02-28-2023 12:11-0500 Body temperature 98.78 [degF] LAURA RICHARDSON MD [facility] 02-28-2023 12:11-0500 Diastolic Blood Pressure Non-Invasive 89 mm[Hg] LAURA RICHARDSON MD [facility] 02-28-2023 12:11-0500 Heart rate 101 /min LAURA RICHARDSON MD [facility] 02-28-2023 12:11-0500 Respiratory rate 22 /min LAURA RICHARDSON MD [facility] 02-28-2023 12:11-0500 Systolic Blood Pressure Non-Invasive 145 mm[Hg] LAURA RICHARDSON MD [facility] 02-27-2023 07:15-0500 Diastolic Blood Pressure Non-Invasive 87 mm[Hg] ALEX TEMPLETON MD [facility] 02-27-2023 07:15-0500 Heart rate 102 /min ALEX TEMPLETON MD [facility] 02-27-2023 07:15-0500 Respiratory rate 18 /min ALEX TEMPLETON MD [facility] 02-27-2023 07:15-0500 Systolic Blood Pressure Non-Invasive 129 mm[Hg] ALEX TEMPLETON MD [facility] 02-27-2023 06:20-0500 Body temperature 97.88 [degF] ALEX TEMPLETON MD [facility] 02-27-2023 06:20-0500 Diastolic Blood Pressure Non-Invasive 107 mm[Hg] ALEX TEMPLETON MD [facility] 02-27-2023 06:20-0500 Heart rate 103 /min ALEX TEMPLETON MD [facility] 02-27-2023 06:20-0500 Respiratory rate 14 /min ALEX TEMPLETON MD [facility] 02-27-2023 06:20-0500 Systolic Blood Pressure Non-Invasive 146 mm[Hg] ALEX TEMPLETON MD [facility] 02-24-2023 17:16-0500 Diastolic Blood Pressure Non-Invasive 95 mm[Hg] DR DEBBIE CHATMAN DO [facility] 02-24-2023 17:16-0500 Heart rate 94 /min DR DEBBIE CHATMAN DO [facility] 02-24-2023 17:16-0500 Respiratory rate 22 /min DR DEBBIE CHATMAN DO [facility] 02-24-2023 17:16-0500 Systolic Blood Pressure Non-Invasive 170 mm[Hg] DR DEBBIE CHATMAN DO [facility] 02-24-2023 16:35-0500 Body height 162.[address] DEBBIE CHATMAN DO [facility] 02-24-2023 16:35-0500 Body temperature 98.06 [degF] DR DEBBIE CHATMAN DO [facility] 02-24-2023 16:35-0500 Body weight [address] DEBBIE CHATMAN DO [facility] 02-24-2023 16:35-0500 Diastolic Blood Pressure Non-Invasive 114 mm[Hg] DR DEBBIE CHATMAN DO [facility] 02-24-2023 16:35-0500 Heart rate 102 /min DR DEBBIE CHATMAN DO [facility] 02-24-2023 16:35-0500 Respiratory rate 20 /min DR DEBBIE CHATMAN DO [facility] 02-24-2023 16:35-0500 Systolic Blood Pressure Non-Invasive 156 mm[Hg] DR DEBBIE CHATMAN DO [facility] 02-17-2023 09:39-0500 Diastolic Blood Pressure Non-Invasive 101 mm[Hg] DR DAQUAN MAI MD [facility] 02-17-2023 09:39-0500 Heart rate 94 /min DR DAQUAN MAI MD [facility] 02-17-2023 09:39-0500 Mean blood pressure 116 mm[Hg] DR DAQUAN MAI MD [facility] 02-17-2023 09:39-0500 Reason For Taking VItal Signs DR DAUQAN MAI MD [facility] 02-17-2023 09:39-0500 Respiratory rate 16 /min DR DAQUAN MAI MD [facility] 02-17-2023 09:39-0500 Systolic Blood Pressure Non-Invasive 158 mm[Hg] DR DAQUAN MAI MD [facility] 02-17-2023 07:34-0500 Body temperature 98.42 [degF] DR DAQUAN MAI MD [facility] 02-17-2023 07:34-0500 Diastolic Blood Pressure Non-Invasive 105 mm[Hg] DR DAQUAN MAI MD [facility] 02-17-2023 07:34-0500 Heart rate 88 /min DR DAQUAN MAI MD [facility] 02-17-2023 07:34-0500 Respiratory rate 16 /min DR DAQUAN MAI MD [facility] 02-17-2023 07:34-0500 Systolic Blood Pressure Non-Invasive 163 mm[Hg] DR DAQUAN MAI MD [facility] 01-23-2023 12:24-0500 Blood Pressure Location AUDRA PHILLIPS DO [facility] 01-23-2023 12:24-0500 Diastolic Blood Pressure Non-Invasive 76 mm[Hg] AUDRA REICHFIELD DO [facility] 01-23-2023 12:24-0500 Heart rate 81 /min AUDRA REICHFIELD DO [facility] 01-23-2023 12:24-0500 Reason For Taking VItal Signs AUDRA REICHFIELD DO [facility] 01-23-2023 12:24-0500 Respiratory rate 16 /min AUDRA REICHFIELD DO [facility] 01-23-2023 12:24-0500 Systolic Blood Pressure Non-Invasive 120 mm[Hg] AUDRA REICHFIELD DO [facility] 01-23-2023 09:16-0500 Blood Pressure Location AUDRA REICHFIELD DO [facility] 01-23-2023 09:16-0500 Body temperature 98.6 [degF] AUDRA REICHFIELD DO [facility] 01-23-2023 09:16-0500 Diastolic Blood Pressure Non-Invasive 86 mm[Hg] AUDRA REICHFIELD DO [facility] 01-23-2023 09:16-0500 Heart rate 84 /min AUDRA REICHFIELD DO [facility] 01-23-2023 09:16-0500 Respiratory rate 16 /min AUDRA REICHFIELD DO [facility] 01-23-2023 09:16-0500 Systolic Blood Pressure Non-Invasive 134 mm[Hg] AUDRA REICHFIELD DO [facility] 01-18-2023 07:37-0500 Body temperature 96.8 [degF] Satnam Michael BLOOD BANK SPECIALIST.WRAPPING CLERK Work Phone: [facility] 01-18-2023 07:37-0500 Body weight 130.18 kg Satnam Michael BLOOD BANK SPECIALIST.WRAPPING CLERK Work Phone: [facility] 01-18-2023 07:37-0500 Diastolic blood pressure 80 mm[Hg] Satnam Michael BLOOD BANK SPECIALIST.WRAPPING CLERK Work Phone: [facility] 01-18-2023 07:37-0500 Heart rate 94 /min Satnam Michael BLOOD BANK SPECIALIST.WRAPPING CLERK Work Phone: [facility] 01-18-2023 07:37-0500 Respiratory rate 16 /min Satnam Michael BLOOD BANK SPECIALIST.WRAPPING CLERK Work Phone: [facility] 01-18-2023 07:37-0500 SaO2% (BldA) [Mass fraction] 96 % Satnam Michael BLOOD BANK SPECIALIST.WRAPPING CLERK Work Phone: [facility] 01-18-2023 07:37-0500 Systolic blood pressure 132 mm[Hg] Satnam Michael BLOOD BANK SPECIALIST.WRAPPING CLERK Work Phone: [facility] 01-17-2023 09:47-0500 Body temperature 96.91 [degF] Whitley Praisler-Wood BLOOD BANK SPECIALIST.WRAPPING CLERK Work Phone: [facility] 01-17-2023 09:47-0500 Body weight 129.28 kg Whitley Praisler-Wood BLOOD BANK SPECIALIST.WRAPPING CLERK Work Phone: [facility] 01-17-2023 09:47-0500 Diastolic blood pressure 88 mm[Hg] Whitley Praisler-Wood BLOOD BANK SPECIALIST.WRAPPING CLERK Work Phone: [facility] 01-17-2023 09:47-0500 Heart rate 82 /min Whitley Praisler-Wood BLOOD BANK SPECIALIST.WRAPPING CLERK Work Phone: [facility] 01-17-2023 09:47-0500 Respiratory rate 18 /min Whitley Praisler-Wood BLOOD BANK SPECIALIST.WRAPPING CLERK Work Phone: [facility] 01-17-2023 09:47-0500 SaO2% (BldA) [Mass fraction] 96 % Whitleyadrienne Hsieh BLOOD BANK SPECIALIST.WRAPPING CLERK Work Phone: [facility] 01-17-2023 09:47-0500 Systolic blood pressure 142 mm[Hg] Whitleyadrienne Hsieh BLOOD BANK SPECIALIST.WRAPPING CLERK Work Phone: [facility] 01-10-2023 11:49-0500 Diastolic Blood Pressure Non-Invasive 81 1 SHEELA GARRIDO MD [facility] 01-10-2023 11:49-0500 Heart rate 68 /min SHEELA GARRIDO MD [facility] 01-10-2023 11:49-0500 Respiratory rate 20 /min SHEELA GARRIDO MD [facility] 01-10-2023 11:49-0500 Systolic Blood Pressure Non-Invasive 153 1 SHEELA GARRIDO MD [facility] 01-10-2023 10:16-0500 Diastolic Blood Pressure Non-Invasive 94 1 SHEELA GARRIDO MD [facility] 01-10-2023 10:16-0500 Heart rate 66 /min SHEELA GARRIDO MD [facility] 01-10-2023 10:16-0500 Respiratory rate 17 /min SHEELA GARRIDO MD [facility] 01-10-2023 10:16-0500 Systolic Blood Pressure Non-Invasive 152 1 SHEELA GARRIDO MD [facility] 01-10-2023 09:06-0500 Body temperature 97.52 [degF] SHEELA GARRIDO MD [facility] 01-10-2023 09:06-0500 Diastolic Blood Pressure Non-Invasive 97 1 SHEELA GARRIDO MD [facility] 01-10-2023 09:06-0500 Heart rate 72 /min SHEELA GARRIDO MD [facility] 01-10-2023 09:06-0500 Systolic Blood Pressure Non-Invasive 139 1 SHEELA GARRIDO MD [facility] 01-10-2023 08:35-0500 Blood Pressure Location SHEELA GARRIDO MD [facility] 01-10-2023 08:35-0500 Blood Pressure Method SHEELA GARRIDO MD [facility] 01-10-2023 08:35-0500 Body height 162.6 cm SHEELA GARRIDO MD [facility] 01-10-2023 08:35-0500 Body weight 129.4 kg SHEELA GARRIDO MD [facility] 01-10-2023 08:35-0500 Heart rate 98 /min SHEELA GARRIDO MD [facility] 01-10-2023 08:35-0500 Respiratory rate 20 /min SHEELA GARRIDO MD [facility] 12-25-2022 01:29-0400 Diastolic Blood Pressure Non-Invasive 79 1 FABIAN DURESKA DO [facility] 12-25-2022 01:29-0400 Heart rate 75 /min FABIAN DURESKA DO [facility] 12-25-2022 01:29-0400 Respiratory rate 16 /min FABIAN DURESKA DO [facility] 12-25-2022 01:29-0400 Systolic Blood Pressure Non-Invasive 119 1 FABIAN DURESKA DO [facility] 12-25-2022 00:30-0400 Diastolic Blood Pressure Non-Invasive 75 1 FABIAN DURESKA DO [facility] 12-25-2022 00:30-0400 Heart rate 75 /min FABIAN DURESKA DO [facility] 12-25-2022 00:30-0400 Respiratory rate 16 /min FABIAN DURESKA DO [facility] 12-25-2022 00:30-0400 Systolic Blood Pressure Non-Invasive 135 1 FABIAN DURESKA DO [facility] 12-24-2022 22:30-0400 Diastolic Blood Pressure Non-Invasive 80 1 FABIAN DURESKA DO [facility] 12-24-2022 22:30-0400 Heart rate 72 /min FABIAN DURESKA DO [facility] 12-24-2022 22:30-0400 Reason For Taking VItal Signs FABIAN DURESKA DO [facility] 12-24-2022 22:30-0400 Respiratory rate 16 /min FABIAN DURESKA DO [facility] 12-24-2022 22:30-0400 Systolic Blood Pressure Non-Invasive 123 1 FABIAN DURESKA DO [facility] 12-24-2022 19:56-0400 Reason For Taking VItal Signs FABIAN DURESKA DO [facility] 12-24-2022 18:06-0400 Body height 162.6 cm FABIAN DURESKA DO [facility] 12-24-2022 18:06-0400 Body temperature 97.88 [degF] FABIAN DURESKA DO [facility] 12-24-2022 18:06-0400 Body weight 127.3 kg FABIAN MOLINA DO [facility] 12-24-2022 18:06-0400 Heart rate 83 /min FABIAN MOLINA DO [facility] 12-14-2022 10:52-0400 Body temperature 97.7 [degF] Whitley Praisler-Wood BLOOD BANK SPECIALIST.WRAPPING CLERK Work Phone: [facility] 12-14-2022 10:52-0400 Body weight 130.18 kg Whitley Praisler-Wood BLOOD BANK SPECIALIST.WRAPPING CLERK Work Phone: [facility] 12-14-2022 10:52-0400 Diastolic blood pressure 80 mm[Hg] Whitley Praisler-Wood BLOOD BANK SPECIALIST.WRAPPING CLERK Work Phone: [facility] 12-14-2022 10:52-0400 Heart rate 78 /min Whitley Praisler-Wood BLOOD BANK SPECIALIST.WRAPPING CLERK Work Phone: [facility] 12-14-2022 10:52-0400 Respiratory rate 16 /min Whitley Praisler-Wood BLOOD BANK SPECIALIST.WRAPPING CLERK Work Phone: [facility] 12-14-2022 10:52-0400 SaO2% (BldA) [Mass fraction] 97 % Whitley Praisler-Wood BLOOD BANK SPECIALIST.WRAPPING CLERK Work Phone: [facility] 12-14-2022 10:52-0400 Systolic blood pressure 128 mm[Hg] Whitley Praisler-Wood BLOOD BANK SPECIALIST.WRAPPING CLERK Work Phone: [facility] 11-16-2022 10:58-0400 Body temperature 97.7 [degF] Valeria ARBOLEDA-Moi Work Phone: [facility] 11-16-2022 10:58-0400 Body weight 126.1 kg Valeria ARBOLEDA-C Work Phone: [facility] 11-16-2022 10:58-0400 Diastolic blood pressure 82 mm[Hg] Valeria Athy PA-C Work Phone: [facility] 11-16-2022 10:58-0400 Heart rate 102 /min Valeria Athy PA-C Work Phone: [facility] 11-16-2022 10:58-0400 Respiratory rate 18 /min Valeria Athy PA-C Work Phone: [facility] 11-16-2022 10:58-0400 SaO2% (BldA) [Mass fraction] 98 % Valeria Athy PA-C Work Phone: [facility] 11-16-2022 10:58-0400 Systolic blood pressure 138 mm[Hg] Valeria Athy PA-C Work Phone: [facility] 10-03-2022 15:59-0400 Body temperature 98.42 [degF] SHEELA GARRIDO MD [facility] 10-03-2022 15:59-0400 Diastolic Blood Pressure Non-Invasive 88 1 SHEELA GARRIDO MD [facility] 10-03-2022 15:59-0400 Heart rate 96 /min SHEELA GARRIDO MD [facility] 10-03-2022 15:59-0400 Respiratory rate 18 /min SHEELA GARRIDO MD [facility] 10-03-2022 15:59-0400 Systolic Blood Pressure Non-Invasive 124 1 SHEELA GARRIDO MD [facility] 10-03-2022 13:36-0400 Blood Pressure Cuff Size SHEELA GARRIDO MD [facility] 10-03-2022 13:36-0400 Blood Pressure Location SHEELA GARRIDO MD [facility] 10-03-2022 13:36-0400 Blood Pressure Method SHEELA GARRIDO MD [facility] 10-03-2022 13:36-0400 Body temperature 98.6 [degF] SHEELA GARRIDO MD [facility] 10-03-2022 13:36-0400 Diastolic Blood Pressure Non-Invasive 85 1 SHEELA GARRIDO MD [facility] 10-03-2022 13:36-0400 Heart rate 104 /min SHEELA GARRIDO MD [facility] 10-03-2022 13:36-0400 Respiratory rate 20 /min SHEELA GARRIDO MD [facility] 10-03-2022 13:36-0400 Systolic Blood Pressure Non-Invasive 128 1 SHEELA GARRIDO MD [facility] 09-22-2022 23:41-0400 Body temperature 98.24 [degF] DR OMEGA OCHOA DO [facility] 09-22-2022 23:41-0400 Diastolic Blood Pressure Non-Invasive [address] OMEGA OCHOA DO [facility] 09-22-2022 23:41-0400 Heart rate 100 /min DR OMEGA OCHOA DO [facility] 09-22-2022 23:41-0400 Respiratory rate 20 /min DR OMEGA OCHOA DO [facility] 09-22-2022 23:41-0400 Systolic Blood Pressure Non-Invasive [address] OMEGA OCHOA DO [facility] 08-17-2022 14:34-0400 Diastolic blood pressure 94 mm[Hg] Whitley Hsieh APRN.CNP Work Phone: [facility] 08-17-2022 14:34-0400 Heart rate 83 /min Whitley Praisler-Wood BLOOD BANK SPECIALIST.WRAPPING CLERK Work Phone: [facility] 08-17-2022 14:34-0400 SaO2% (BldA) [Mass fraction] 98 % Whitley Praisler-Wood BLOOD BANK SPECIALIST.WRAPPING CLERK Work Phone: [facility] 08-17-2022 14:34-0400 Systolic blood pressure 182 mm[Hg] Whitley Praisler-Wood BLOOD BANK SPECIALIST.WRAPPING CLERK Work Phone: [facility] 08-17-2022 13:36-0400 Body temperature 98.2 [degF] Whitley Praisler-Wood BLOOD BANK SPECIALIST.WRAPPING CLERK Work Phone: [facility] 08-17-2022 13:36-0400 Body weight 114.31 kg Whitley Praisler-Wood BLOOD BANK SPECIALIST.WRAPPING CLERK Work Phone: [facility] 08-17-2022 13:36-0400 Respiratory rate 16 /min Whitley Praisler-Wood BLOOD BANK SPECIALIST.WRAPPING CLERK Work Phone: [facility] 08-13-2022 22:09-0400 Diastolic Blood Pressure Non-Invasive [address] INA DICKSON MD [facility] 08-13-2022 22:09-0400 Heart rate 85 /min DR INA DICKSON MD [facility] 08-13-2022 22:09-0400 Respiratory rate 20 /min DR INA DICKSON MD [facility] 08-13-2022 22:09-0400 Systolic Blood Pressure Non-Invasive [address] INA DICKSON MD [facility] 08-13-2022 20:59-0400 Body temperature 98.06 [degF] DR INA DICKSON MD [facility] 08-13-2022 20:59-0400 Diastolic Blood Pressure Non-Invasive [address] INA DICKSON MD [facility] 08-13-2022 20:59-0400 Heart rate 80 /min DR INA DICKSON MD [facility] 08-13-2022 20:59-0400 Respiratory rate 18 /min DR INA DICKSON MD [facility] 08-13-2022 20:59-0400 Systolic Blood Pressure Non-Invasive [address] INA DICKSON MD [facility] 07-28-2022 09:55-0400 Body temperature 98.01 [degF] Valeria Athy PA-C Work Phone: [facility] 07-28-2022 09:55-0400 Body weight 122.47 kg Valeria Athy PA-C Work Phone: [facility] 07-28-2022 09:55-0400 Diastolic blood pressure 80 mm[Hg] Valeria Athy PA-C Work Phone: [facility] 07-28-2022 09:55-0400 Heart rate 62 /min Valeria Athy PA-C Work Phone: [facility] 07-28-2022 09:55-0400 Respiratory rate 18 /min Valeria Athy PA-C Work Phone: [facility] 07-28-2022 09:55-0400 SaO2% (BldA) [Mass fraction] 98 % Valeria Athy PA-C Work Phone: [facility] 07-28-2022 09:55-0400 Systolic blood pressure 122 mm[Hg] Valeria Athy PA-C Work Phone: [facility] 05-04-2022 14:35-0500 Body temperature 98.4 [degF] Valeria Athy PA-C Work Phone: [facility] 05-04-2022 14:35-0500 Body weight 121.38 kg Valeria Athy PA-C Work Phone: [facility] 05-04-2022 14:35-0500 Diastolic blood pressure 88 mm[Hg] Valeria Athy PA-C Work Phone: [facility] 05-04-2022 14:35-0500 Heart rate 87 /min Valeria Athy PA-C Work Phone: [facility] 05-04-2022 14:35-0500 Respiratory rate 18 /min Valeria Athy PA-C Work Phone: [facility] 05-04-2022 14:35-0500 SaO2% (BldA) [Mass fraction] 99 % Valeria Athy PA-C Work Phone: [facility] 05-04-2022 14:35-0500 Systolic blood pressure 148 mm[Hg] Valeria Athy PA-C Work Phone: [facility] 04-17-2022 13:18-0500 Body temperature 97.81 [degF] Jessica Dayna BLOOD BANK SPECIALIST.WRAPPING CLERK Work Phone: [facility] 04-17-2022 13:18-0500 Body weight 124.92 kg Jessica Dayna BLOOD BANK SPECIALIST.WRAPPING CLERK Work Phone: [facility] 04-17-2022 13:18-0500 Diastolic blood pressure 110 mm[Hg] Jessica Dayna BLOOD BANK SPECIALIST.WRAPPING CLERK Work Phone: [facility] 04-17-2022 13:18-0500 Heart rate 79 /min Jessica Dayna BLOOD BANK SPECIALIST.WRAPPING CLERK Work Phone: [facility] 04-17-2022 13:18-0500 Respiratory rate 21 /min Jessica Dayna BLOOD BANK SPECIALIST.WRAPPING CLERK Work Phone: [facility] 04-17-2022 13:18-0500 SaO2% (BldA) [Mass fraction] 97 % Jessica Dayna BLOOD BANK SPECIALIST.WRAPPING CLERK Work Phone: [facility] 04-17-2022 13:18-0500 Systolic blood pressure 152 mm[Hg] Jessica Dayna BLOOD BANK SPECIALIST.WRAPPING CLERK Work Phone: [facility] 02-25-2022 15:16-0500 Body temperature 98.71 [degF] Ria Older BLOOD BANK SPECIALIST.WRAPPING CLERK Work Phone: [facility] 02-25-2022 15:16-0500 Body weight 124.1 kg Ria Older BLOOD BANK SPECIALIST.WRAPPING CLERK Work Phone: [facility] 02-25-2022 15:16-0500 Diastolic blood pressure 80 mm[Hg] Ria Older BLOOD BANK SPECIALIST.WRAPPING CLERK Work Phone: [facility] 02-25-2022 15:16-0500 Heart rate 82 /min Ria Older BLOOD BANK SPECIALIST.WRAPPING CLERK Work Phone: [facility] 02-25-2022 15:16-0500 Respiratory rate 16 /min Ria Older BLOOD BANK SPECIALIST.WRAPPING CLERK Work Phone: [facility] 02-25-2022 15:16-0500 SaO2% (BldA) [Mass fraction] 99 % Ria Older BLOOD BANK SPECIALIST.WRAPPING CLERK Work Phone: [facility] 02-25-2022 15:16-0500 Systolic blood pressure 138 mm[Hg] Ria Older BLOOD BANK SPECIALIST.WRAPPING CLERK Work Phone: [facility] 12-20-2021 16:49-0400 Diastolic blood pressure 88 mm[Hg] DR VAHE JENKINS MD [facility] 12-20-2021 16:49-0400 Heart rate 80 /min DR VAHE JENKINS MD [facility] 12-20-2021 16:49-0400 Respiratory rate 18 /min DR VAHE JENKINS MD [facility] 12-20-2021 16:49-0400 Systolic blood pressure 174 mm[Hg] DR VAHE JENKINS MD [facility] 12-20-2021 15:50-0400 Body temperature 97.7 [degF] DR VAHE JENKINS MD [facility] 12-20-2021 15:50-0400 Heart rate 76 /min DR VAHE JENKINS MD [facility] 12-20-2021 15:50-0400 Respiratory rate 18 /min DR VAHE JENKINS MD [facility] 12-20-2021 13:53-0400 Body temperature 99.68 [degF] DR VAHE JENKINS MD [facility] 12-20-2021 13:53-0400 Diastolic blood pressure 100 mm[Hg] DR VAHE JENKINS MD [facility] 12-20-2021 13:53-0400 Heart rate 78 /min DR VAHE JENKINS MD [facility] 12-20-2021 13:53-0400 Respiratory rate 18 /min DR VAHE JENKINS MD [facility] 12-20-2021 13:53-0400 Systolic blood pressure 160 mm[Hg] DR VAHE JENKINS MD [facility] 11-13-2021 11:51-0400 Body temperature 97.39 [degF] Valeria Athy PA-C Work Phone: [facility] 11-13-2021 11:51-0400 Body weight 129.18 kg Valeria Athy PA-C Work Phone: [facility] 11-13-2021 11:51-0400 Diastolic blood pressure 72 mm[Hg] Valeria Athy PA-C Work Phone: [facility] 11-13-2021 11:51-0400 Heart rate 78 /min Valeria Athy PA-C Work Phone: [facility] 11-13-2021 11:51-0400 Respiratory rate 16 /min Valeria Athy PA-C Work Phone: [facility] 11-13-2021 11:51-0400 SaO2% (BldA) [Mass fraction] 98 % Valeria Athy PA-C Work Phone: [facility] 11-13-2021 11:51-0400 Systolic blood pressure 130 mm[Hg] Valeria Danay PA-C Work Phone: [facility] 10-17-2021 11:10-0400 Body temperature 98.01 [degF] Jac Castillo MD Work Phone: [facility] 10-17-2021 11:10-0400 Body weight 126.55 kg Jac Castillo MD Work Phone: [facility] 10-17-2021 11:10-0400 Diastolic blood pressure 84 mm[Hg] Jac Castillo MD Work Phone: [facility] 10-17-2021 11:10-0400 Heart rate 66 /min Jac Castillo MD Work Phone: [facility] 10-17-2021 11:10-0400 Respiratory rate 16 /min Jac Castillo MD Work Phone: [facility] 10-17-2021 11:10-0400 SaO2% (BldA) [Mass fraction] 99 % Jac Castillo MD Work Phone: [facility] 10-17-2021 11:10-0400 Systolic blood pressure 122 mm[Hg] Jac Castillo MD Work Phone: [facility] 06-10-2021 11:20-0400 Diastolic Blood Pressure NBP 63 1 ISAAC JEWELL DO [facility] 06-10-2021 11:20-0400 Heart rate 75 /min ISAAC JEWELL DO [facility] 06-10-2021 11:20-0400 Respiratory rate 19 /min ISAAC JEWELL DO [facility] 06-10-2021 11:20-0400 Systolic Blood Pressure NBP 111 1 ISAAC JEWELL DO [facility] 06-10-2021 11:15-0400 Heart rate 72 /min ISAAC JEWELL DO [facility] 06-10-2021 11:15-0400 Respiratory rate 15 /min ISAAC JEWELL DO [facility] 06-10-2021 11:10-0400 Diastolic Blood Pressure NBP 67 1 ISAAC JEWELL DO [facility] 06-10-2021 11:10-0400 Heart rate 77 /min ISAAC JEWELL DO [facility] 06-10-2021 11:10-0400 Respiratory rate 19 /min ISAAC JEWELL DO [facility] 06-10-2021 11:10-0400 Systolic Blood Pressure NBP 95 1 ISAAC JEWELL DO [facility] 06-10-2021 11:05-0400 Diastolic Blood Pressure NBP 69 1 ISAAC JEWELL DO [facility] 06-10-2021 11:05-0400 Systolic Blood Pressure NBP 100 1 ISAAC JEWELL DO [facility] 06-10-2021 10:55-0400 Body temperature 97.52 [degF] ISAAC JEWELL DO [facility] 06-10-2021 08:16-0400 Body height 162.6 cm ISAAC JEWELL DO [facility] 06-10-2021 08:16-0400 Body temperature 96.98 [degF] ISAAC JEWELL DO [facility] 06-10-2021 08:16-0400 Body weight 132.1 kg ISAAC JEWELL DO [facility] 06-10-2021 08:16-0400 Heart rate 79 /min ISAAC JEWELL DO [facility] 06-09-2021 10:24-0400 Body height 162.6 cm ISAAC JEWELL DO [facility] 06-09-2021 10:24-0400 Body weight 132.1 kg ISAAC JEWELL DO [facility] 06-09-2021 10:24-0400 Body weight 49.96 kg/m2 ISAAC JEWELL DO [facility] 06-09-2021 10:24-0400 diastolic 68 mm[Hg] ISAAC JEWELL DO [facility] 06-09-2021 10:24-0400 Heart rate 73 /min ISAAC JEWELL DO [facility] 06-09-2021 10:24-0400 Respiratory rate 22 /min ISAAC JEWELL DO [facility] 06-09-2021 10:24-0400 systolic 140 mm[Hg] ISAAC JEWELL DO [facility] Encounters Encounter Date Encounter Type Care Provider Facility Start: 12-20-2023 End: 12-20-2023 [facility] Facility:[facility] Start: 12-20-2023 End: 12-20-2023 Patient encounter procedure Whitley Hsieh BLOOD BANK SPECIALIST.WRAPPING CLERK Work Phone: [facility] Comment on above: Acute gout of right foot, unspecified cause (Primary Dx); Skin irritation Start: 11-27-2023 End: 11-27-2023 Emergency department patient visit JANINA GAN MD [facility] Start: 11-24-2023 End: 11-24-2023 [facility] Facility:[facility] Start: 11-24-2023 End: 11-24-2023 Patient encounter procedure Yadira Ragsdale APRN.WRAPPING CLERK Work Phone: [facility] Comment on above: Fungal infection of skin (Primary Dx) Start: 11-13-2023 End: 11-13-2023 Emergency department patient visit JANINA GAN MD Facility:[facility] Start: 09-21-2023 End: 09-21-2023 Emergency department patient visit LAURA RICHARDSON MD [facility] Start: 09-05-2023 End: 09-05-2023 Emergency department patient visit DR MATHIEU BARRETT MD [facility] Start: 08-22-2023 End: 08-22-2023 Emergency department patient visit ILANA MORGAN DO [facility] Start: 08-16-2023 End: 08-16-2023 Emergency department patient visit DR MATHIEU BARRETT MD [facility] Start: 08-14-2023 End: 08-14-2023 Emergency department patient visit DR OMEGA OCHOA DO [facility] Start: 08-06-2023 End: 08-06-2023 Emergency department patient visit ILANA MORGAN DO [facility] Start: 2023 End: 2023 Emergency department patient visit FERN REEDMaynorAMYApolinar DO [facility] Start: 07-25-2023 End: 07-25-2023 ambulatory ARAM JOHNSON Facility:[facility] Start: 07-25-2023 End: 07-25-2023 Patient encounter procedure Jac Castillo MD Work Phone: [facility] Comment on above: Generalized weakness (Primary Dx); SOB (shortness of breath) Start: 07-19-2023 End: 07-19-2023 Emergency department patient visit LIA PULLIAM MD [facility] Start: 07-03-2023 End: 07-03-2023 Emergency department patient visit AUDRA PHILLIPS DO [facility] Start: 06-20-2023 End: 06-20-2023 ambulatory ARAM MCCARTHYNGER Facility:[facility] Start: 06-20-2023 End: 06-20-2023 Patient encounter procedure Cornelius ARBOLEDA Work Phone: [facility] Comment on above: Intertrigo (Primary Dx) Start: 05-13-2023 End: 05-13-2023 Emergency department patient visit LIA PULLIAM MD [facility] Start: 05-13-2023 End: 05-13-2023 ambulatory ARAM MCCARTHYNGER Facility:[facility] Start: 05-13-2023 End: 05-13-2023 Patient encounter procedure Tracee Chakraborty BLOOD BANK SPECIALIST.WRAPPING CLERK Work Phone: [facility] Comment on above: Right leg swelling ( Primary Dx) Start: 05-04-2023 End: 05-04-2023 Subsequent hospital visit by physician Xr [facility] Work Phone: [facility] Comment on above: Foot pain, right [M7 9.671] Start: 05-04-2023 End: 05-04-2023 ambulatory ARAM JOHNSON Facility:[facility] Start: 05-04-2023 End: 05-04-2023 Office outpatient visit 15 minutes Isaac Valentine BLOOD BANK SPECIALIST.WRAPPING CLERK Work Phone: [facility] Comment on above: Foot pain, right (Pr imary Dx); Acute right ankle pain Start: 04-29-2023 End: 04-29-2023 Emergency department patient visit LAURA RICHARDSON MD [facility] Start: 04-25-2023 Telephone encounter Aram Johnson DO Work Phone: [facility] Comment on above: Results Start: 04-21-2023 End: 04-21-2023 Emergency department patient visit ILANA MORGAN DO [facility] Start: 04-20-2023 End: 04-20-2023 Emergency department patient visit DR DAQUAN MAI MD [facility] Start: 04-15-2023 End: 04-15-2023 Subsequent hospital visit by physician Thai [facility] Work Phone: Radiology Comment on above: Injury of right lowe r extremity, initial encounter [S89.91XA] Start: 04-15-2023 End: 04-15-2023 ambulatory [facility] Facility:[facility] Start: 04-15-2023 End: 04-15-2023 Patient encounter procedure Satnam Rodriguez APRN.WRAPPING CLERK Work Phone: [facility] Comment on above: Closed fracture of r ight foot, initial encounter (Primary Dx); Injury of right lower extremity, initial encounter Start: 04-03-2023 End: 04-03-2023 Emergency department patient visit DR DEBBIE CHATMAN DO [facility] Start: 03-31-2023 End: 03-31-2023 ambulatory [facility] Facility:[facility] Start: 03-31-2023 End: 03-31-2023 Patient encounter procedure Whitley Hsieh APRN.WRAPPING CLERK Work Phone: [facility] Comment on above: Headache, unspecifie d headache type (Primary Dx); Nausea Start: 03-28-2023 End: 03-28-2023 Emergency department patient visit MARIZA QUINONEZ MD [facility] Start: 03-23-2023 End: 03-23-2023 Emergency department patient visit LAURA RICHARDSON MD [facility] Start: 03-16-2023 End: 03-16-2023 Subsequent hospital visit by physician Thai [facility] Work Phone: Radiology Comment on above: Pain of right great toe [M79.674] Start: 03-16-2023 End: 03-16-2023 ambulatory ARAM JOHNSON Facility:[facility] Start: 03-13-2023 End: 03-13-2023 Emergency department patient visit ARAM ALEX DO Facility:[facility] Start: 03-09-2023 End: 03-11-2023 ambulatory ELY Bose DOMINGO BLOOD BANK SPECIALIST-WRAPPING CLERK Facility:[facility] Start: 03-09-2023 End: 03-11-2023 Observation OSCAR Garcia VEGA BLOOD BANK SPECIALIST-WRAPPING CLERK [facility] Start: 03-08-2023 End: 03-08-2023 ambulatory ARAM JOHNSON Facility:[facility] Start: 03-05-2023 End: 03-05-2023 Emergency department patient visit ELIAN DICKSON MD [facility] Start: 03-04-2023 End: 03-04-2023 ambulatory ARAM MCCARTHYNGER Facility:[facility] Start: 02-28-2023 End: 02-28-2023 Emergency department patient visit LAURA RICHARDSON MD [facility] Start: 02-27-2023 End: 02-27-2023 Emergency department patient visit ALEX TEMPLETON MD [facility] Start: 02-24-2023 End: 02-24-2023 Emergency department patient visit DR DEBBIE CHATMAN DO [facility] Start: 02-20-2023 End: 02-20-2023 Emergency department patient visit ARAM JOHNSON DO Facility:[facility] Start: 02-17-2023 End: 02-17-2023 Emergency department patient visit DR DAQUAN MAI MD [facility] Start: 01-23-2023 End: 01-23-2023 Emergency department patient visit AUDRA PHILLIPS DO [facility] Start: 01-18-2023 End: 01-18-2023 ambulatory SATNAM RODRIGUEZ Facility:[facility] Start: 01-18-2023 End: 01-18-2023 Patient encounter procedure Satnam Rodriguez APRN.WRAPPING CLERK Work Phone: [facility] Comment on above: Leg cramps (Primary Dx) Start: 01-17-2023 End: 01-17-2023 ambulatory ARAM MCCARTHYNGER Facility:[facility] Start: 01-17-2023 End: 01-17-2023 Patient encounter procedure Whitley Hsieh APRN.WRAPPING CLERK Work Phone: [facility] Comment on above: Headache, unspecifie d headache type (Primary Dx) Start: 01-10-2023 End: 01-10-2023 Emergency department patient visit SHEELA GARRIDO MD [facility] Start: 12-24-2022 End: 12-25-2022 Emergency department patient visit FABIAN MOLINA DO [facility] Start: 12-15-2022 Telephone encounter Whitley Meek APRN.WRAPPING CLERK Work Phone: [facility] Comment on above: Results Start: 12-14-2022 End: 12-14-2022 Patient encounter procedure Whitley Hsieh APRN.WRAPPING CLERK Work Phone: [facility] Comment on above: Acute midline low ba ck pain without sciatica (Primary Dx); Fatigue, unspecified type Start: 11-16-2022 End: 11-16-2022 Patient encounter procedure Valeria Thompson PA-C Work Phone: [facility] Comment on above: Intertrigo (Primary Dx); Skin sore; Bronchitis Start: 10-03-2022 End: 10-03-2022 Emergency department patient visit SHEELA GARRIDO MD [facility] Start: 09-22-2022 End: 09-23-2022 Emergency department patient visit DR OMEGA OCHOA DO [facility] Start: 08-17-2022 End: 08-17-2022 Patient encounter procedure Whitley Hsieh BLOOD BANK SPECIALIST.WRAPPING CLERK Work Phone: [facility] Comment on above: Headache, unspecifie d headache type (Primary Dx); Nausea Start: 08-13-2022 End: 08-13-2022 Emergency department patient visit DR INA DICKSON MD [facility] Start: 08-13-2022 End: 08-13-2022 Patient encounter procedure Satnam BLOOD BANK SPECIALIST.WRAPPING CLERK Work Phone: [facility] Comment on above: Injury of head, init ial encounter (Primary Dx) Start: 08-05-2022 End: 08-05-2022 Subsequent hospital visit by physician Xr [facility] Work Phone: Radiology Comment on above: Left ankle injury, i nitial encounter [S99.912A] Start: 08-05-2022 End: 05-06-2023 OTHER THERAPY YSABEL LUTZ BLOOD BANK SPECIALIST - WRAPPING CLERK [facility] Start: 07-28-2022 End: 07-28-2022 Subsequent hospital visit by physician Xr [facility] Work Phone: Radiology Comment on above: Fall, initial encoun ter [W19.XXXA] Start: 07-28-2022 End: 07-28-2022 Patient encounter procedure Valeria Thompson PA-C Work Phone: [facility] Comment on above: Fall, initial encoun ter (Primary Dx); Unspecified site of sprain and strain Start: 05-04-2022 End: 05-04-2022 Patient encounter procedure Valeria Thompson PA-C Work Phone: [facility] Comment on above: Cellulitis of skin ( Primary Dx) Start: 04-17-2022 End: 04-17-2022 Patient encounter procedure Jessicayandel Mcintosh BLOOD BANK SPECIALIST.WRAPPING CLERK Work Phone: [facility] Comment on above: Post-nasal drainage (Primary Dx); Neck pain Start: 02-26-2022 Telephone encounter Daisy Sarmiento BLOOD BANK SPECIALIST.WRAPPING CLERK Work Phone: [facility] Comment on above: Results Start: 02-25-2022 End: 02-25-2022 Patient encounter procedure Ria Lindsay OBRIEN.WRAPPING CLERK Work Phone: [facility] Comment on above: Viral URI with cough (Primary Dx); Exacerbation of asthma, unspecified asthma severity, unspecified whether persistent Start: 12-20-2021 End: 12-20-2021 Emergency department patient visit DR VAHE JENKINS MD [facility] Start: 11-13-2021 End: 11-13-2021 Patient encounter procedure Valeria Thompson PA-C Work Phone: [facility] Comment on above: Middle ear effusion, right (Primary Dx); Irritation of external ear canal, right Start: 10-17-2021 End: 10-17-2021 Patient encounter procedure Jac Castillo MD Work Phone: [facility] Comment on above: Nausea vomiting and diarrhea (Primary Dx); Malaise and fatigue Start: 06-10-2021 End: 06-10-2021 SAME DAY STAY ISAAC JEWELL DO [facility] Start: 06-09-2021 End: 06-09-2021 Admission to establishment ISAAC JEWELL DO [facility] Start: 05-27-2020 End: 05-27-2020 Subsequent hospital visit by physician Mariela Vasquez Work Phone: [facility] Comment on above: Dyspnea, unspecified ; Dyspnea, unspecified type Procedures Date Procedure Procedure Detail Performing Clinician Start: 05-04-2023 Radex ankle complete minimum 3 views Isaac Valentine BLOOD BANK SPECIALIST.WRAPPING CLERK Work Phone: Start: 04-15-2023 Radex ankle complete minimum 3 views Satnam Rodriguez BLOOD BANK SPECIALIST.WRAPPING CLERK Work Phone: Start: 03-16-2023 Radex toe minimum 2 views Cornelius Banerjee PA Work Phone: Start: 12-14-2022 Urnls dip stick/tabl et rgnt auto w/o microscopy Valeria ARBOLEDA-C Work Phone: Start: 08-05-2022 Radex ankle complete minimum 3 views Whitley Hsieh BLOOD BANK SPECIALIST.WRAPPING CLERK Work Phone: Start: 07-28-2022 Radex spine cervical 4 or 5 views Valeria ARBOLEDA-C Work Phone: Start: 02-25-2022 COVID WITH FLUA+B, ROUTINE Ria Older BLOOD BANK SPECIALIST.WRAPPING CLERK Work Phone: Start: 09-28-2020 Cardiac catheterization ISAAC JEWELL DO Comment on above: x2 Start: 05-27-2020 Brncdilat rspse spmt ry pre&post-brncdilat admn Mariela Vasquez Work Phone: section ISAAC ALEX DO Comment on above: 1996 Cystoscopic lithotri psy of ureteric calculus ISAAC JEWELL DO Decompression of med hank nerve ISAAC JEWELL DO Comment on above: Bilateral Plan of Treatment Date Care Activity Detail Author Start: 01-18-2026 Diabetes Screening Diabetes Screenin g [facility] Start: 12-14-2025 Diabetes Screening Diabetes Screenin g [facility] Start: 10-30-2023 Covid-19 Vaccine ( season) Covid-19 Vaccine ( season) [facility] Start: 10-30-2023 Covid-19 Vaccine ( season) Covid-19 Vaccine () [facility] Start: 10-30-2023 Influenza vaccination [facility] Start: 02-28-2023 Behavioral Health Screening Behavioral Health Screening [facility] Start: 02-28-2023 Depression Assessment Depression Ass essment [facility] Start: 12-14-2022 End: 03-15-2023 CBC W Auto Differential panel - Blood [facility] Work Phone: Comment on above: Expected: 12/14/2022 , Expires: 03/15/2023 Start: 12-14-2022 End: 03-15-2023 Comprehensive metabolic 2000 panel - Serum or Plasma [facility] Work Phone: Comment on above: Expected: 12/14/2022 , Expires: 03/15/2023 Start: 12-14-2022 End: 03-15-2023 Thyrotropin [Units/volume] in Serum or Plasma [facility] Work Phone: Comment on above: Expected: 12/14/2022 , Expires: 03/15/2023 Start: 10-29-2022 Covid-19 Vaccine ( season) Covid-19 Vaccine () [facility] Start: 10-29-2022 Influenza vaccination C [facility] Start: 02-28-2022 DEPRESSION ASSESSMENT DEPRESSION ASS ESSMENT [facility] Start: 10-29-2021 Influenza vaccination INFLUENZA (#1) [facility] Start: 2020 SHINGRIX VACCINE (1 of 2) SHINGRIX VACCINE (1 of 2) [facility] Start: 07-23-2020 End: 07-23-2020 Office Visit 07/23/2020 Office Visit Pulmonology Mariela Vasquez MD [address] [address] [phone] [facility] Start: 04-23-2020 Annual Wellness Visi t (AWV) Annual Wellness Visit (AWV) [facility] Work Phone: Start: 10-30-2019 Influenza vaccination Flu vaccine (# 1) [facility] Work Phone: Start: 08-01-2015 COLOGUARD (FIT-DNA) COLOGUARD (FIT-D NA) [facility] Start: 08-01-2015 Colonoscopy COLONOSCOPY [facility] Start: 08-01-2015 COLORECTAL CANCER SCREENING COLORECTAL CANCER SCREENING [facility] Start: 08-01-[address] COLONOGRAPHY [facility] Start: 08-01-2015 DIABETES SCREEN DIABETES SCREEN [facility] Start: 08-01-2015 Diabetes Screening Diabetes Screenin g [facility] Start: 08-01-2015 FECAL OCCULT BLOOD FECAL OCCULT BLOO D [facility] Start: 08-01-2015 Lipid 1996 panel - S maria fernanda or Plasma Lipid Screening [facility] Start: 08-01-2015 Lipid panel Lipid Screening [facility] Start: 08-01-2015 LIPID SCREEN LIPID SCREEN [facility] Start: 08-01-2015 Screening for malign ant neoplasm of colon [facility] Start: 08-01-2015 SIGMOIDOSCOPY SIGMOIDOSCOPY [facility] Start: 2010 Diabetes screen Diabetes screen [facility] Work Phone: Start: 2010 Mammography [facility] Start: 2010 Screening for malign ant neoplasm of breast Mammogram Screening [facility] Start: 2000 HPV TESTING HPV TESTING [facility] Start: 2000 Screening for malign ant neoplasm of cervix HPV Testing [facility] Start: 08-01-1991 PAP TESTING PAP TESTING [facility] Start: 08-01-1991 Screening for malign ant neoplasm of cervix [facility] Start: 1989 DTaP/Tdap/Td vaccine (1 - Tdap) DTaP/Tdap/Td vaccine (1 - Tdap) [facility] Work Phone: Start: 1989 Hepatitis B Vaccine (1 of 3 - 19+ 3-dose series) Hepatitis B Vaccine (1 of 3 - 19+ 3-dose series) [facility] Start: 1989 Urine microalbumin profile [facility] Start: 1988 ANNUAL PCP TEAM HAND STRAIGHTENER ISRAEL DISEASE VISIT ANNUAL PCP TEAM CHRONIC DISEASE VISIT [facility] Start: 1988 Anxiety Screening Anxiety Screening [facility] Start: 1988 Depression Screening Depression Scre ening [facility] Start: 1988 HEPATITIS C SCREENING HEPATITIS C [facility] Start: 1988 Hepatitis C screening Hepatitis C [facility] Start: 1988 HIV SCREENING HIV SCREENING [facility] Start: 1988 HIV screening HIV Screening [facility] Start: 1986 COVID-19 Vaccine (1) COVID-19 Vaccin e (1) [employer] Work Phone: Start: 1985 HIV screening HIV screen [facility] Work Phone: Start: 1982 Adult depression screening assessment DEPRESSION SCREENING [facility] Start: 1980 Lipid panel Lipid screen [facility] Work Phone: Start: 01-30-1971 COVID-19 VACCINE (#1) COVID-19 VACCI NE (#1) [facility] Start: 1970 Creatinine measurement Creatinine mo nitoring [facility] Work Phone: Start: 1970 HEPATITIS B (1 of 3 - 3-dose series) HEPATITIS B (1 of 3 - 3-dose series) [facility] Start: 1970 Hepatitis B Vaccine (1 of 3 - 3-dose series) Hepatitis B Vaccine (1 of 3 - 3-dose series) [facility] Start: 1970 Hepatitis C screening Hepatitis C sc reen [facility] Work Phone: Start: 1970 Potassium monitoring Potassium monit oring [facility] Work Phone: Bacteria identified in Urine by Culture URINE CULTURE Microbiology Routine Acute midline low back pain without sciatica 12/14/2022 11:37 AM EDT [facility] Work Phone: End: 05-27-2020 MDI Treatment MDI Treatment Respiratory Care Routine Once for 1 Occurrences starting 05/27/2020 until 05/27/2020 [facility] Work Phone: Comment on above: Once for 1 Occurrenc es starting 05/27/2020 until 05/27/2020 Antoni olivo Payers Date Payer Category Payer Private Health Insurance [id number] 2023 Private Health Insurance [id number] 2019 Medicaid [id number] 2019 Medicare [id number] 2019 Medicaid [id number] 2019 Medicare [id number] 1970 Unknown [id number] 2.16.8 40.1.949208.3.579.2.627 1970 Unknown [id number] 2.16.8 40.1.322112.3.579.2.7 1970 Unknown [id number] 2.16.8 40.1.035751.3.579.2.7 1970 Unknown [id number] 2.16.8 40.1.079925.3.579.2.7 1970 Unknown [id number] 2.16.8 40.1.701085.3.579.2.627 1970 Unknown [id number] 2.16.8 40.1.347833.3.579.2. 1970 Unknown [id number] 2.16.8 40.1.388320.3.579.2.627 1970 Unknown [id number] 2.16.8 40.1.291016.3.579.2. 1970 Unknown [id number] 2.16.8 40.1.519225.3.579.2.627 1970 Unknown [id number] 2.16.8 40.1.905152.3.579.2. 1970 Unknown [id number] 2.16.8 40.1.744855.3.579.2. 1970 Unknown [id number] 2.16.8 40.1.774179.3.579.2. 1970 Unknown [id number] 2.16.8 40.1.925393.3.579.2. 1970 Unknown [id number] 2.16.8 40.1.039193.3.579.2. 1970 Unknown [id number] 2.16.8 40.1.277956.3.579.2. 1970 Unknown [id number] 2.16.8 40.1.551055.3.579.2. 1970 Unknown [id number] 2.16.8 40.1.911132.3.579.2. 1970 Unknown [id number] 2.16.8 40.1.506415.3.579.2. 1970 Unknown [id number] 2.16.8 40.1.303341.3.579.2. 1970 Unknown [id number] 2.16.8 40.1.918021.3.579.2. 1970 Unknown [id number] 2.16.8 40.1.014361.3.579.2. 1970 Unknown [id number] 2.16.8 40.1.874102.3.579.2. 1970 Unknown [id number] 2.16.8 40.1.313689.3.579.2. 1970 Unknown [id number] 2.16.8 40.1.839925.3.579.2. 1970 Unknown [id number] 2.16.8 40.1.787056.3.579.2.627 1970 Unknown [id number] 2.16.8 40.1.581572.3.579.2.627 1970 Unknown [id number] 2.16.8 40.1.789936.3.579.2.627 1970 Unknown [id number] 2.16.8 40.1.312552.3.579.2.627 1970 Unknown [id number] 2.16.8 40.1.900588.3.579.2.627 Social History Date Type Detail Facility Start: 10-19-2010 End: 04-23-2020 Tobacco smoking status GAIS Never smoker [employer] Work Phone: Start: 10-19-2010 End: 04-23-2020 Tobacco use and exposure Never used [employer] Work Phone: Start: 04-23-2020 Alcohol intake Lifetime non-d ambar (finding) [employer] Work Phone: Start: 04-23-2020 History SDOH Alcohol Frequency 1 [employer] Phone: Start: 1970 Sex Assigned At Not on file [facility] [employer] [facility] Work Phone: Sex Assigned At Female [facility] Start: 10-17-2021 End: 12-20-2023 Alcohol intake Current non-drinker of alcohol (finding) [facility] Start: 11-03-2021 End: 11-13-2021 Exposure to SARS-CoV-2 (event) Not sure [facility] Start: 11-16-2022 End: 12-20-2023 History of Social function [facility] Start: 11-16-2022 End: 12-20-2023 Tobacco use panel [facility] Functional Status Date Assessment Result Facility 11-27-2023 Functional Status Assistive Device None A [facility] 11-27-2023 Functional Status Ambulation in Torres, Ambulation in Room [facility] 09-21-2023 Functional Status Independent [facility] 09-05-2023 Functional Status Assistive Device None A [facility] 09-05-2023 Functional Status Standard Safet y ID band on, Call device within reach, Bed in low position, Wheels locked [facility] 08-22-2023 Functional Status Independent [facility] 08-22-2023 Functional Status Standard Safet y ID band on, Allergy Band on, Call device within reach, Bed in low position, Wheels locked [facility] 08-16-2023 Functional Status Independent [facility] 08-14-2023 Functional Status Activity Magoshayy gupat Independent [facility] 08-14-2023 Functional Status ID band on [facility] 08-06-2023 Functional Status ID band on, Call device within reach, Bed in low position, Wheels locked, Upper/Half-Length side-rails up, Bedside Cart Locked, Safety level maintained [facility] 08-06-2023 Functional Status [facility] 2023 Functional Status ID band on, Allergy Band on, Call device within reach, Bed in low position, Wheels locked, Bedside Cart Locked, Visitor at bedside, Safety level maintained [facility] 2023 Functional Status [facility] 07-19-2023 Functional Status ID band on, Call device within reach, Bed in low position [facility] 07-19-2023 Functional Status [facility] 07-03-2023 Functional Status ID band on, Call device within reach, Bed in low position, Wheels locked, Upper/Half-Length side-rails up, Bedside Cart Locked, Safety level maintained [facility] 07-03-2023 Functional Status Ambulation in Torres, Ambulation in Room [facility] 05-13-2023 Functional Status ID band on, Allergy Band on, Call device within reach, Bed in low position, Wheels locked, Safety level maintained [facility] 04-29-2023 Functional Status Independent Johny thorpe [facility] 04-29-2023 Functional Status Johny thorpe [facility] 04-29-2023 [facility] Functional Status ID band on, Call device within reach, Bed in low position, Wheels locked, Bedside Cart Locked [facility] 04-20-2023 [facility] Functional Status [facility] 04-03[facility]2023 Functional Status ID band on Johny Singh [facility] 03-28-2023 Functional Status ID band on, Allergy Band on, Call device within reach, Bed in low position, Wheels locked, Upper/Half-Length side-rails up, Visitor at bedside, Safety level maintained [facility] 03-23-2023 Functional Status Room check performed [facility] 03-11-2023 Functional Status Independent Johny Singh [facility] 03-11-2023 Functional Status Repositions self [facility] 03-11-2023 Functional Status Door open, Room check performed [facility] 03-11-2023 [facility]-11[facility]23 Functional Status Johny Singh [facility] 03-11-2023 Functional Status Johny Singh [facility] 03-10-2023 Functional Status Dinner Percent 30 [facility] 03-10-2023 Functional Status Lunch Percent 25 [facility] 03-10-2023 Functional Status Single level home [facility] 03-10-2023 Functional [facility]-10[facility]23 Functional Status Other: NA Johny Singh [facility] 03-09-2023 Functional Status Supervision Johny Singh [facility] 03-09-2023 Functional Status Johny thorpe [facility] 03-05-2023 Functional Status [facility]-05[facility]23 Functional Status ID band on [facility] 02-28-2023 Functional Status Up ad javed Johny Singh [facility] 02-28-2023 Functional Status Standard Safet y ID band on, Allergy Band on, Call device within reach, Bed in low position, Wheels locked, Bedside Cart Locked, Safety level maintained [facility] 02-27-2023 Functional Status Assistive Device None A [facility] 02-27-2023 Functional Status Standard Safet y ID band on, Allergy Band on, Call device within reach, Bed in low position, Wheels locked, Bedside Cart Locked, Visitor at bedside [facility] 02-24-2023 Functional Status Identified as high risk, Fall ID band on [facility] 02-17-2023 Functional Status Independent Johny [facility] 02-17-2023 Functional Status ID band on [facility] 01-23-2023 Functional Status Assistive Device None A [facility] 01-23-2023 Functional Status Standard Safety ID band on [facility] 01-10-2023 Functional Status Room check performed [facility] 01-10-2023 Functional Status Johny Singh [facility] 01-10-2023 Functional Status Johny Singh [facility] 12-25-2022 Functional Status Standard Safet y ID band on, Call device within reach, Bed in low position, Wheels locked [facility] 12-24-2022 Functional Status Johny Singh [facility] 12-24-2022 Functional Status Johny Singh [facility] 10-03-2022 Functional Status Independent Johny Singh [facility] 09-23-2022 Functional Status Activity Mago tance Independent [facility] 08-13-2022 Functional Status Assistive Device Crutch es [facility] 12-20-2021 Functional Status Independent Johny thorpe [facility] 06-10-2021 Functional Status Johny thorpe [facility] 06-10-2021 Functional Status Johny thorpe [facility] 06-09-2021 Functional Status Johny thorpe [facility] Mental Status Date Assessment Result Facility 11-27-2023 Mental Status Orientation Oriented x 4 [facility] 11-27-2023 Mental Status [facility] 09-21-2023 Mental Status Orientation Oriented x 4 [facility] 09-05-2023 Mental Status Orientation Oriented x 4 [facility] 09-05-2023 Mental Status [facility] 08-22-2023 Mental Status Orientation Oriented x 4 [facility] 08-16-2023 Mental Status Orientation Oriented x 4 [facility] 08-16-2023 Mental Status [facility] 08-14-2023 Mental Status Orientation Oriented x 4 [facility] 08-14-2023 Mental Status [facility] 08-06-2023 Mental Status Orientation Oriented x 4 [facility] 08-06-2023 Mental Status [facility] 2023 Mental Status Oriented x 4 [facility] 2023 Mental Status [facility] 07-19-2023 Mental Status Orientation Oriented x 4 [facility] 07-19-2023 Mental Status [facility] 07-03-2023 Mental Status Oriented x 4 [facility] 07-03-2023 Mental Status [facility] 05-13-2023 Mental Status Oriented x 4 [facility] 04-29-2023 Mental Status Orientation Oriented x 4 [facility] 04-20-2023 Mental Status Oriented x 4 [facility] 04-20-2023 Mental Status [facility] 04-03-2023 Mental Status Orientation Oriented x 4 [facility] 04-03-2023 Mental Status [facility] 03-28-2023 Mental Status Orientation Oriented x 4 [facility] 03-23-2023 Mental Status Orientation Oriented x 4 [facility] 03-23-2023 Mental Status [facility] 03-11-2023 Mental Status Oriented x 4 [facility] 03-11-2023 Mental Status [facility] 03-10-2023 Mental Status [facility] 03-05-2023 Mental Status Orientation Oriented x 4 [facility] 03-05-2023 Mental Status [facility] 02-28-2023 Mental Status Orientation Oriented x 4 [facility] 02-27-2023 Mental Status Orientation Oriented x 4 [facility] 02-27-2023 Mental Status [facility] 02-24-2023 Mental Status Oriented x 4 [facility] 02-17-2023 Mental Status Orientation Oriented x 4 [facility] 01-23-2023 Mental Status Orientation Oriented x 4 [facility] 01-23-2023 Mental Status [facility] 01-10-2023 Mental Status Orientation Oriented x 4 [facility] 01-10-2023 Mental Status [facility] 12-24-2022 Mental Status Orientation Oriented x 4 [facility] 10-03-2022 Mental Status Orientation Oriented x 4 [facility] 09-23-2022 Mental Status Orientation Oriented x 4 [facility] 09-23-2022 Mental Status [facility] 08-13-2022 Mental Status Oriented x 4 [facility] 12-20-2021 Mental Status Orientation Oriented x 4 [facility] 06-10-2021 Mental Status [facility] 06-10-2021 Mental Status [facility] Clinical Notes 06-10-2021 to 12-20-2023 Patient InstructionsWhitley Hsieh APRN.[facility] - 12/20/2023 10:09 AM EDYadira Smith APRN.[facility] - 11/24/2023 6:34 PM EDTLaboraJac Sanchez MD - 07/25/2023 11:19 AM EDTPatient Instructions Note Date & Type Note Facility 12-20-2023 Instructions Whitley Hsieh APRN.[facility] - 12/20/2023 10:15 AM EDT ASSESSMENT/PLAN: 1. Acute gout of right foot, unspecified cause - ICD9: 274.01, ICD10: M10.9 (primary diagnosis) - PREDNISONE 20 MG TABLET 2. Skin irritation - ICD9: 709.9, ICD10: R23.8 - MUPIROCIN 2 % TOPICAL OINTMENT - Follow-up with your PCP in 3-5 days if symptoms have not improved or sooner if symptoms worsen - Discussed red flags and need for immediate medical evaluation if any occur. - Discussed supportive care treatment with fluids, rest and analgesia. - Discussed expected course of illness Whitley Hsieh APRN.[facility] GOUT: You have an acute joint inflammation called gout. Gout is caused by uric acid crystals forming in the joint. Often uric acid levels in the blood are also elevated. Gout occurs most commonly in men and appears to be an inherited condition. Diuretics (water pills) tend to elevate blood uric acid levels and can cause similar joint problems. The big toe, foot, ankle, and knee are the joints most often affected. Treatment includes: Rest and elevate the affected limb until the swelling and pain are better. Use a frame to keep the sheets off your leg as needed. Anti-inflammatory medicine usually brings about dramatic relief of pain , redness, and swelling within 2-3 days. Increase your fluid intake, avoid alcohol, and do not eat liver, sweetbreads, or sardines. Long-term management may require medicine to lower blood uric acid levels or stopping diuretic therapy. Please see your doctor if your condition is not better after 1-2 days of treatment, or if you have fever, skin rash, diarrhea, or other joint pains. documented in this encounter [facility] 12-20-2023 Note HNO ID: [id number] Author: WHITLEY HSIEH APRN.WRAPPING CLERK Service: ? Author Type: Nurse Practitioner Type: Progress Notes Filed: 12/20/2023 10:15 Note Text: Subjective Pain (foot) Pertinent negatives include no fever or itching. Kamala Gray is a 53 year old female who presents with right foot pain since yesterday. She denies injury. She states she gets gout once a year and this is consistent with previous episodes of gout. She describes sharp pain in right foot, worse with walking. There is also some swelling and redness of her skin. Rates pain 10/10. She has not taken any medication for pain at home. She also has a sore on the back of her neck from the strap of her sleep apnea machine. This has been present for a week. It is tender to touch. She denies fever. Review of Systems Constitutional: Negative for chills and fever. Respiratory: Negative. Cardiovascular: Negative. Musculoskeletal: Positive for joint pain. Negative for falls. See HPI Skin: Negative for itching and rash. See HPI BP 130/84 Pulse 88 Temp 36.5 ?C (97.7 ?F) Resp 18 Wt (!) 136.2 kg (300 lb 4.3 oz) LMP (LMP Unknown) SpO2 96% PAST MEDICAL HISTORY Diagnosis Date Asthma with COPD (HCC) Celiac disease CKD (chronic kidney disease) Diabetes mellitus type 2 (HCC) Gout Hyperlipidemia Hypertension Hypothyroidism Microcytic anemia Obesity, Class III, BMI 40-49.9 (morbid obesity) (HCC) Renal calculi No past surgical history on file. ALLERGIES Hydrochlorothiazide, Naproxen, Asa [Salicylates], and Penicillins MEDICATIONS nystatin (MYCOSTATIN) powder Apply 1 application to affected area three times a day. progesterone micronized (PROMETRIUM) 200 mg capsule magnesium oxide 200 mg magnesium tab Take 1 tablet by mouth daily at bedtime. atogepant (QULIPTA) 30 mg tablet Take by mouth. budesonide-formoterol (SYMBICORT) 160-4.5 mcg/actuation inhaler Inhale 2 Puffs as instructed. fremanezumab-vfrm (AJOVY AUTOINJECTOR) 225 mg/1.5 mL auto-injector Inject 225 mg subcutaneously once every month. Do not shake. TRELEGY ELLIPTA 100-62.5-25 mcg INHALE 1 PUFF DAILY with good oral care levothyroxine (SYNTHROID) 300 mcg tablet Take by mouth. Not taking predniSONE (DELTASONE) 20 mg tablet Take 2 tablets by mouth once daily for 4 days. Take daily with food. nystatin (MYCOSTATIN) powder Apply 1 application to affected area three times a day. (Patient not taking: Reported on 11/24/2023) apixaban (ELIQUIS) 5 mg tab(s) Take 5 mg by mouth once daily. (Patient not taking: Reported on 12/20/2023) ondansetron orally disintegrating (ZOFRAN ODT) 4 mg disintegrating tablet Take 1 tablet by mouth every 6 hours as needed for nausea/vomiting. (Patient not taking: Reported on 11/24/2023) benzonatate (TESSALON PERLES) 100 mg capsule Take 2 capsules by mouth three times daily as needed. (Patient not taking: Reported on 06/20/2023) guaiFENesin (MUCINEX FAST-MAX CHEST-CONGEST) 100 mg/5 mL syrup Take 20 mL by mouth every 4 hours as needed. (Patient not taking: Reported on 06/20/2023) megestrol (MEGACE) 40 mg tablet Take 40 mg by mouth once daily. (Patient not taking: Reported on 12/20/2023) acetaminophen(TYLENOL 325 MG TAB) (Patient not taking: Reported on 11/24/2023) No family history on file. Social History Tobacco Use Smoking status: Never Smokeless tobacco: Never Substance Use Topics Alcohol use: No Drug use: Never Objective Physical Exam Vitals and nursing note reviewed. Constitutional: General: She is not in acute distress. Appearance: Normal appearance. She is obese. She is not ill-appearing. Cardiovascular: Rate and Rhythm: Normal rate. Pulmonary: Effort: Pulmonary effort is normal. Musculoskeletal: Legs: Skin: General: Skin is warm and dry. Findings: Erythema present. No bruising. Neurological: Mental Status: She is alert. ASSESSMENT/PLAN: 1. Acute gout of right foot, unspecified cause - ICD9: 274.01, ICD10: M10.9 (primary diagnosis) - PREDNISONE 20 MG TABLET 2. Skin irritation - ICD9: 709.9, ICD10: R23.8 - MUPIROCIN 2 % TOPICAL OINTMENT - Follow-up with your PCP in 3-5 days if symptoms have not improved or sooner if symptoms worsen - Discussed red flags and need for immediate medical evaluation if any occur. - Discussed supportive care treatment with fluids, rest and analgesia. - Discussed expected course of illness Whitley Hsieh APRN.[facility] 12-20-2023 History of Presen t illness Narrative Images from the original note were not included. Subjective Pain (foot) Pertinent negatives include no fever or itching. Kamala Gray is a 53 year old female who presents with right foot pain since yesterday. She denies injury. She states she gets gout once a year and this is consistent with previous episodes of gout. She describes sharp pain in right foot, worse with walking. There is also some swelling and redness of her skin. Rates pain 10/10. She has not taken any medication for pain at home. She also has a sore on the back of her neck from the strap of her sleep apnea machine. This has been present for a week. It is tender to touch. She denies fever. Review of Systems Constitutional: Negative for chills and fever. Respiratory: Negative. Cardiovascular: Negative. Musculoskeletal: Positive for joint pain. Negative for falls. See HPI Skin: Negative for itching and rash. See HPI BP 130/84 Pulse 88 Temp 36.5 C (97.7 F) Resp 18 Wt (!) 136.2 kg (300 lb 4.3 oz) LMP (LMP Unknown) SpO2 96% PAST MEDICAL HISTORY Diagnosis Date Asthma with COPD (HCC) Celiac disease CKD (chronic kidney disease) Diabetes mellitus type 2 (HCC) Gout Hyperlipidemia Hypertension Hypothyroidism Microcytic anemia Obesity, Class III, BMI 40-49.9 (morbid obesity) (HCC) Renal calculi No past surgical history on file. ALLERGIES Hydrochlorothiazide, Naproxen, Asa [Salicylates], and Penicillins MEDICATIONS nystatin (MYCOSTATIN) powder Apply 1 application to affected area three times a day. progesterone micronized (PROMETRIUM) 200 mg capsule magnesium oxide 200 mg magnesium tab Take 1 tablet by mouth daily at bedtime. atogepant (QULIPTA) 30 mg tablet Take by mouth. budesonide-formoterol (SYMBICORT) 160-4.5 mcg/actuation inhaler Inhale 2 Puffs as instructed. fremanezumab-vfrm (SpacebikiniOVY AUTOINJECTOR) 225 mg/1.5 mL auto-injector Inject 225 mg subcutaneously once every month. Do not shake. TRELEGY ELLIPTA 100-62.5-25 mcg INHALE 1 PUFF DAILY with good oral care levothyroxine (SYNTHROID) 300 mcg tablet Take by mouth. Not taking predniSONE (DELTASONE) 20 mg tablet Take 2 tablets by mouth once daily for 4 days. Take daily with food. nystatin (MYCOSTATIN) powder Apply 1 application to affected area three times a day. (Patient not taking: Reported on 11/24/2023) apixaban (ELIQUIS) 5 mg tab(s) Take 5 mg by mouth once daily. (Patient not taking: Reported on 12/20/2023) ondansetron orally disintegrating (ZOFRAN ODT) 4 mg disintegrating tablet Take 1 tablet by mouth every 6 hours as needed for nausea/vomiting. (Patient not taking: Reported on 11/24/2023) benzonatate (TESSALON PERLES) 100 mg capsule Take 2 capsules by mouth three times daily as needed. (Patient not taking: Reported on 06/20/2023) guaiFENesin (MUCINEX FAST-MAX CHEST-CONGEST) 100 mg/5 mL syrup Take 20 mL by mouth every 4 hours as needed. (Patient not taking: Reported on 06/20/2023) megestrol (MEGACE) 40 mg tablet Take 40 mg by mouth once daily. (Patient not taking: Reported on 12/20/2023) acetaminophen(TYLENOL 325 MG TAB) (Patient not taking: Reported on 11/24/2023) No family history on file. Social History Tobacco Use Smoking status: Never Smokeless tobacco: Never Substance Use Topics Alcohol use: No Drug use: Never Objective Physical Exam Vitals and nursing note reviewed. Constitutional: General: She is not in acute distress. Appearance: Normal appearance. She is obese. She is not ill-appearing. Cardiovascular: Rate and Rhythm: Normal rate. Pulmonary: Effort: Pulmonary effort is normal. Musculoskeletal: Legs: Skin: General: Skin is warm and dry. Findings: Erythema present. No bruising. Neurological: Mental Status: She is alert. ASSESSMENT/PLAN: 1. Acute gout of right foot, unspecified cause - ICD9: 274.01, ICD10: M10.9 (primary diagnosis) - PREDNISONE 20 MG TABLET 2. Skin irritation - ICD9: 709.9, ICD10: R23.8 - MUPIROCIN 2 % TOPICAL OINTMENT - Follow-up with your PCP in 3-5 days if symptoms have not improved or sooner if symptoms worsen - Discussed red flags and need for immediate medical evaluation if any occur. - Discussed supportive care treatment with fluids, rest and analgesia. - Discussed expected course of illness Whitley Hsieh APRN.WRAPPING CLERK documented in this encounter [facility] 11-27-2023 Hospital Discharg e instructions Patient Education 11/27/2023 17:47:58 Diet, [place] (Adult) [place] Diet Your healthcare provider may recommend a bland diet if you have an upset stomach. It consists of foods that are mild and easy to digest. It is better to eat small frequent meals rather than 3 large meals a day. Beverages OK: Fruit juices, non-caffeinated teas and coffee, non-carbonated duggan Avoid: Carbonated beverage, caffeinated tea and coffee, all alcoholic beverages Bread OK: Refined white, wheat or rye bread, octavio or soda crackers, Verdi toast, plain rolls, bagels Avoid: Whole-grain bread Cereal OK: Refined cereals: cooked or ready to eat Avoid: Whole-grain cereals and granola, or those containing bran, seeds or nuts Desserts OK: Peanut butter and all others except those to avoid Avoid: Chocolate, cocoa, coconut, popcorn, nuts, seeds, jam, marmalade Fruits OK: Canned, cooked, frozen or fresh fruits without seeds or tough skin Avoid: Olives, skin and seeds of fruit, dried fruit Meats OK: All fresh or preserved meat, fish and fowl Avoid: Any that are prepared with those spices to avoid Cheese and eggs OK: Eggs, cottage cheese, cream cheese, other cheeses Avoid: All cheeses made with those spices to avoid Potatoes and pasta OK: Potato, rice, macaroni, noodles, spaghetti Avoid: None Soups OK: All soups without heavy seasoning Avoid: Soups made with those spices to avoid Vegetables OK: Canned, cooked, fresh or frozen mildly flavored vegetables without seeds, skins or coarse fiber Avoid: Vegetables prepared with those spices to avoid ; skin and seeds of vegetables and those with coarse fiber, broccoli, cabbage, cauliflower, cucumber, green peppers, and corn Spices OK: Salt, lemon and limejuice, vinegar, all extracts, karly, cinnamon, thyme, mace, allspice, paprika Avoid: [place] powder, cloves, pepper, seed spices, garlic, gravy pickles, highly seasoned salad dressings [id number] ID [employer]. [address] [place] [address]. All rights reserved. This information is not intended as a substitute for professional medical care. Always follow your healthcare professional's instructions. 11/27/2023 16:25:47 Vomiting (Adult) Vomiting (Adult) Vomiting is a [...] and water are not available, use alcohol-based medical coding specialist to keep from spreading the infection to [...] Yellow color of the eyes or skin [id number] [employer]. [address] [place] [address]. All rights reserved. This information is not intended as a substitute for professional medical care. Always follow your healthcare professional's instructions. Follow Up Care 11/27/2023 15:39:31 With:NASREEN BERNABE Address: [address] [place] [phone] Business (1) When:11/28/2023 Comments:Schedule appointment as soon as possibleReturn to ED if symptoms worsenPedialyte only till tomorrow morning and if better increase to brat diet then back to fullMay use Zofran for nausea [facility] 11-27-2023 Emergency department Discharge summary Discharge Instructions Thank you for allowing [facility] to assist you with your healthcare needs. The following is important discharge information regarding your hospital visit. Diagnosis from Today's Visit Nausea What to Do Next Instructions from Your Care Team No qualifying data available. Post Acute Orders No qualifying data available. You Need to Schedule the Following Appointments Follow Up with NASREEN BERNABE When:11/28/2023 12:00 AM EDT Where:[address] [place] [phone] [email or web address] (1) Additional Information: Schedule appointment as soon as possible Return to ED if symptoms worsen Pedialyte only till tomorrow morning and if better increase to brat diet then back to full May use Zofran for nausea Allergies Naprosyn Nausea aspirin NAUSEA naproxen penicillin Medications Please ask your primary doctor or pharmacist before taking any other medication not listed, including over the counter drugs, herbal medications, vitamins and or supplements as they may interact with your home medications. What How Much When Why Instructions Last Dose New ondansetron (Zofran ODT use ondansetron oral tablet, disintegrating ) 8 Milligram by mouth Two (2) times a day Duration: 2 Days As needed for nausea and vomiting Printed Prescription Unchanged acetaminophen (Tylenol Extra Strength 500 mg oral tablet) 3 tab by mouth Every 6 hours as needed for as needed for pain Unchanged amLODIPine (amLODIPine 10 mg oral tablet) 1 tab(s) by mouth Once a day Duration: 30 Days Unchanged apixaban (Eliquis 5 mg oral tablet) 1 tab(s) by mouth Two (2) times a day Unchanged atogepant (Qulipta 60 mg oral tablet) 1 tab(s) by mouth Once a day Unchanged citalopram (CeleXA 40 mg oral tablet) 1 tab(s) by mouth Once a day Anxiety and depression Duration: 30 Days Unchanged cyclobenzaprine (cyclobenzaprine 5 mg oral tablet) 1 tab(s) by mouth Three (3) times a day Duration: 10 Days Unchanged dicyclomine (dicyclomine 20 mg oral tablet) 1 tab(s) by mouth Four (4) times a day as needed for As needed for abdominal discomfort Duration: 3 Days Unchanged docusate (Docu Soft 100 mg oral capsule) 1 cap by mouth Two (2) times a day as needed for for constipation Duration: 14 Days Unchanged docusate (docusate calcium 240 mg oral capsule) 1 cap by mouth Every day as needed for for constipation Duration: 10 Days Unchanged fluticasone/ umeclidinium/ vilanterol (Trelegy Ellipta 100 mcg-62.5 mcg-25 mcg/ inh inhalation powder) 1 puff(s) by inhalation Once a day Asthma in adult Duration: 90 Days Managed by Pulmonology Unchanged gabapentin (gabapentin 100 mg oral capsule) 1 cap by mouth Three (3) times a day TAKE 1 CAPSULE BY MOUTH THREE TIMES DAILY Unchanged galcanezumab (Emgality Prefilled Pen 120 mg/ mL subcutaneous solution) Inject 120 mg every month by subcutaneous route. Unchanged levothyroxine (levothyroxine 100 mcg (0.1 mg) oral tablet) 1 tab(s) by mouth Once a day Unchanged levothyroxine (levothyroxine 200 mcg (0.2 mg) oral tablet) 1 tab(s) by mouth Once a day Unchanged mupirocin topical (mupirocin 2% topical ointment) USE 1 Application two times daily DIRECTED Unchanged nortriptyline (nortriptyline 50 mg oral capsule) 1 cap by mouth Daily at bedtime Unchanged ocular lubricant (ocular lubricant ophthalmic solution) 1 Drops Both eyes Two (2) times a day as needed for for dry eyes Unchanged polyethylene glycol 3350 ([id number] oral powder for reconstitution) 17 gram(s) by mouth Every day Unchanged potassium chloride (potassium chloride 10 mEq oral capsule, extended release) Unchanged progesterone (progesterone 200 mg oral capsule) 400 Milligram by mouth Daily at bedtime Unchanged rimegepant [...] oral tablet) 1 tab(s) by mouth Every 12 hours as needed for for pain Unchanged ubrogepant (Ubrelvy 100 mg oral tablet) [...] medication providers or retail pharmacies. Medication Leaflets ondansetron (oral) (on nano) What is the most important information I should know about ondansetron? Tell your doctor about all your other medicines. Some drugs should not be used with ondansetron. What is ondansetron? Ondansetron is used to prevent nausea and vomiting that may happen with certain cancer medicines (chemotherapy), or after surgery, or radiation treatment . Ondansetron may be used for purposes not listed in this medication guide. What should I discuss with my health care provider before taking ondansetron? You should not use ondansetron if you are allergic to it or similar medicines (dolasetron, granisetron, palonosetron). Some drugs should not be used with ondansetron. Your treatment plan may change if you also use apomorphine. Tell your doctor if you have or have ever had: an electrolyte imbalance (such as low blood levels of potassium or magnesium); congestive heart failure, slow heartbeats; heart rhythm disorder such as long QT syndrome (in you or a family member); an obstruction in the stomach or intestines, a change in bowel habits; a surgery on your stomach or intestines; or severe liver disease. The orally disintegrating tablet may contain phenylalanine and could be harmful if you have phenylketonuria (PKU). Tell your doctor if you also use stimulant medicine, opioid medicine, herbal products, or medicine for depression, mental illness, Parkinson's disease, migraine headaches, serious infections, or prevention of nausea and vomiting. An interaction with ondansetron could cause a serious condition called serotonin syndrome. Tell your doctor if you are or . Ondansetron is not approved for use by anyone younger than 4 years old. How should I take ondansetron? Follow all directions on your prescription label and read all medication guides or instruction sheets. Use the medicine exactly as directed. Ondansetron is usually taken just before surgery, chemotherapy, or radiation treatment. Follow your doctor's dosing instructions very carefully. Measure liquid medicine with the supplied measuring device (not a kitchen spoon). To take the orally disintegrating tablet: Keep the tablet in its blister pack until you are ready to take it. Open the package and peel back the foil. Use dry hands to remove the orally disintegrating tablet and place it in your mouth. Do not push a tablet through the foil or you may damage the tablet. Allow the orally disintegrating tablet to dissolve in your mouth without chewing. Do not swallow whole. Store in the original container at room temperature away from moisture, heat, and light. Store liquid medicine in an upright position. What happens if I miss a dose? Ondansetron is used when needed. If you are on a dosing schedule, skip any missed dose. Do not use two doses at one time. What happens if I overdose? Seek emergency medical attention or call the Poison Help line at . What should I avoid while taking ondansetron? Follow your doctor's instructions about any restrictions on food, beverages, or activity. What are the possible side effects of ondansetron? Get emergency medical help if you have signs of an allergic reaction: hives, difficult breathing, swelling of your face, lips, tongue, or throat. Seek medical attention right away if you have symptoms of serotonin syndrome such as: agitation, hallucinations, fever, sweating, shivering, fast heart rate, muscle stiffness, twitching, loss of coordination, nausea, vomiting, or diarrhea. Seek emergency medical help if you have signs of a heart attack: chest pain that spreads to your jaw or shoulder, nausea, and sweating. Call your doctor at once if you have: severe stomach pain, bloating, constipation, or any change in bowel habits; or dizziness, feeling lightheaded, fainting, slow, fast, or uneven heartbeats. Common side effects may include: diarrhea or constipation; headache; shortness of breath, rapid breathing, fast heartbeats; or feeling unwell, tiredness. This is not a complete list of side effects and others may occur. Call your doctor for medical advice about side effects. You may report side effects to FDA at 8-522-FFS-2546. What other drugs will affect ondansetron? Ondansetron can cause a serious heart problem. Your risk may be higher if you also use certain other medicines for infections, asthma, heart problems, high blood pressure, depression, mental illness, cancer, malaria, or HIV. Many drugs can affect ondansetron. This includes prescription and gosk-fkv-wxuodcz medicines, vitamins, and herbal products. Not all possible interactions are listed here. Tell your doctor about all other medicines you use. Where can I get more information? Your doctor or pharmacist can provide more information about ondansetron. Remember, keep this and all other medicines out of the reach of children, never share your medicines with others, and use this medication only for the indication prescribed. Every effort has been made to ensure that the information provided by [employer] is accurate, up-to-date, and complete, but no guarantee is made to that effect. Drug information contained herein may be time sensitive. [employer] information has been compiled for use by healthcare practitioners and consumers in the [place] and therefore [employer] does not warrant that uses outside of the [place] are appropriate, unless specifically indicated otherwise. [employer]'s drug information does not endorse drugs, diagnose patients or recommend therapy. [employer] drug information is an informational resource designed [...] effective or appropriate for any given patient. [employer] does not assume any responsibility for any aspect of healthcare administered with the aid of information [employer] provides. The information contained herein is not intended to cover all possible uses, directions, precautions, warnings, drug interactions, allergic reactions, or adverse effects. If you have questions about the drugs you are taking, check with your doctor, nurse or pharmacist. Copyright 0836-8418 SNTMNT. Version: 17.. Revision Date: 11/22/2023. Education Materials [place] Diet Your healthcare provider may recommend a bland diet if you have an upset stomach. It consists of foods that are mild and easy to digest. It is better to eat small frequent meals rather than 3 large meals a day. Beverages OK: Fruit juices, non-caffeinated teas and coffee, non-carbonated duggan Avoid: Carbonated beverage, caffeinated tea and coffee, all alcoholic beverages Bread OK: Refined white, wheat or rye bread, octavio or soda crackers, Moriah toast, plain rolls, bagels Avoid: Whole-grain bread Cereal OK: Refined cereals: cooked or ready to eat Avoid: Whole-grain cereals and granola, or those containing bran, seeds or nuts Desserts OK: Peanut butter and all others except those to avoid Avoid: Chocolate, cocoa, coconut, popcorn, nuts, seeds, jam, marmalade Fruits OK: Canned, cooked, frozen or fresh fruits without seeds or tough skin Avoid: Olives, skin and seeds of fruit, dried fruit Meats OK: All fresh or preserved meat, fish and fowl Avoid: Any that are prepared with those spices to avoid Cheese and eggs OK: Eggs, cottage cheese, cream cheese, other cheeses Avoid: All cheeses made with those spices to avoid Potatoes and pasta OK: Potato, rice, macaroni, noodles, spaghetti Avoid: None Soups OK: All soups without heavy seasoning Avoid: Soups made with those spices to avoid Vegetables OK: Canned, cooked, fresh or frozen mildly flavored vegetables without seeds, skins or coarse fiber Avoid: Vegetables prepared with those spices to avoid ; skin and seeds of vegetables and those with coarse fiber, broccoli, cabbage, cauliflower, cucumber, green peppers, and corn Spices OK: Salt, lemon and limejuice, vinegar, all extracts, karly, cinnamon, thyme, mace, allspice, paprika Avoid: Brimley powder, cloves, pepper, seed spices, garlic, gravy pickles, highly seasoned salad dressings 8928-1815 [employer]. [address] [place] [address], [place] [address]. All rights reserved. This information is not [...] and water are not available, use alcohol-based medical coding specialist to keep from spreading the infection to [...] Yellow color of the eyes or skin 5253-2458 [employer]. [address] [place] [address]. All rights reserved. This information is not intended as a substitute for professional medical care. Always follow your healthcare professional's instructions. Additional Information VACCINATE! IT SAVES LIVES! Members of the community who have not yet received the COVID-19 vaccine and would like to receive it can visit one of [facility] vaccine clinics. There are many vaccine clinic locations within the [facility]. For locations and available times, please visit [email or web address] It is important to note that some COVID mobile vaccine clinics are held outdoors and may be canceled in rainy or stormy conditions. To learn more about pediatric vaccinations (ages 5-11), we invite you to visit the [facility] webpage. https://www.[facility].org/p ages/8950-Rryve-Pwllarjtyys-Freq fvmrde-Sxtaf-Dhyhvpcua.html To learn more about the COVID-19 vaccine, we invite you to visit the CDC website for a list of frequently asked questions. https://www.cdc.gov/coronavirus/ 2019-ncov/vaccines/faq.html [facility] Patient Portal Access Instructions: Stay connected with your healthcare team and access your personal medical information anytime with the [facility] Patient Portal. If you would like a full copy of your medical records please contact the [facility] Medical Records Department Tuesday through Tuesday between 8a.m. and 4:30p.m. Please follow the directions below to access the portal: 1.Access the email account you provided upon registration to the [facility].2.Look for an invitation email from [facility].3.Open the email and access the invitation link: Accept Invitation to [facility]4.Fill in the required lee to create your account. Sign into [email or web address] with your username and password that you [...] you will allow to register on the [facility] Patient Portal for access to your information. You can also access the [facility] Patient Portal on the [employer] leigh. Simply click on Health Records under Health Data and then click on the HutGrip logo. HOW TO SAFELY DISPOSE OF PRESCRIPTION [...] Call your local pharmacy or go to [email or web address] to find one close to you.3.Make use of household items: Use cat litter or old coffee grounds to dispose medications if other options are not available. Mix your drugs with these household products, seal them in an airtight container and throw it into the garbage. Call [facility]: [phone] to be sure your drugs can be [...] a CHART COPY Signatures Patient Education Materials Diet, [place] (Adult) Vomiting (Adult) Medication Leaflets ondansetron (oral) My discharge plan and instructions have been reviewed and explained to me and I,KAMALA GRAY understand my current condition and have read and understand these discharge instructions. I have received a written copy of the plan/instructions. If I have questions, I am aware that I should contact my doctor. Patient/Charrer Signature: Date/Time: Relationship to Patient: Witness Name/Signature: Date/Time: [facility] 11-24-2023 Note HNO ID: [id number] Author: YADIRA RAGSDALE APRN.WRAPPING CLERK Service: ? Author Type: Nurse Practitioner Type: Progress Notes Filed: 11/24/2023 18:42 Note Text: This note was created using NoteWriter. Subjective Kamala Gray is a 53 year old female. HPI Pt has a rash under her right armpit and bilater groin. She was seen by Dr. Bernabe two weeks. And prescribed fluconazole tablets and nystatin powder. She states that she took the pills but has maybe been applying the nystatin powder once per day. She otherwise denies any nausea vomiting or fever. Review of Systems Skin: Positive for rash. Objective BP 125/85 Pulse 110 Temp 36.8 ?C (98.3 ?F) Resp 18 Wt 133.9 kg (295 lb 3.1 oz) LMP (LMP Unknown) SpO2 100% Physical Exam Vitals and nursing note reviewed. Constitutional: General: She is not in acute distress. Appearance: Normal appearance. She is not ill-appearing. HENT: Head: Normocephalic. Mouth/Throat: Mouth: Mucous membranes are moist. Eyes: Conjunctiva/sclera: Conjunctivae normal. Cardiovascular: Rate and Rhythm: Normal rate and regular rhythm. Pulmonary: Effort: Pulmonary effort is normal. Breath sounds: Normal breath sounds. Musculoskeletal: General: Normal range of motion. Cervical back: Normal range of motion. Skin: General: Skin is warm and dry. Comments: Erythematous scaly rash and right axillary region. Patient notes rash is similar in bilateral groin folds Neurological: General: No focal deficit present. Mental Status: She is alert. Psychiatric: Mood and Affect: Mood normal. Behavior: Behavior normal. Assessment and Plan ASSESSMENT/PLAN: 1. Fungal infection of skin - ICD9: 111.9, ICD10: B36.9 I informed the family that they should be applying the nystatin powder 2-3 times per day. I recommended that they gently wash the area with soap and water and apply a fresh layer of powder 2-3 times. I also encouraged them to separate the skin folds with a towel or some other piece of cloth that will allow the skin to dry. I informed them that it may take 2-3 weeks for symptoms to completely resolve. She was given a refill of the nystatin powder as they are almost out. Family comfortable with plan. - NYSTATIN 100,000 UNIT/GRAM TOPICAL POWDER Yadira Ragsdale APRN.[facility] 11-24-2023 History of Presen t illness Narrative This note was created using [employer] Pharmaceuticalsriter. Subjective Kamala Gray is a 53 year old female. HPI Pt has a rash under her right armpit and bilater groin. She was seen by Dr. Bernabe two weeks. And prescribed fluconazole tablets and nystatin powder. She states that she took the pills but has maybe been applying the nystatin powder once per day. She otherwise denies any nausea vomiting or fever. Review of Systems Skin: Positive for rash. Objective BP 125/85 Pulse 110 Temp 36.8 C (98.3 F) Resp 18 Wt 133.9 kg (295 lb 3.1 oz) LMP (LMP Unknown) SpO2 100% Physical Exam Vitals and nursing note reviewed. Constitutional: General: She is not in acute distress. Appearance: Normal appearance. She is not ill-appearing. HENT: Head: Normocephalic. Mouth/Throat: Mouth: Mucous membranes are moist. Eyes: Conjunctiva/sclera: Conjunctivae normal. Cardiovascular: Rate and Rhythm: Normal rate and regular rhythm. Pulmonary: Effort: Pulmonary effort is normal. Breath sounds: Normal breath sounds. Musculoskeletal: General: Normal range of motion. Cervical back: Normal range of motion. Skin: General: Skin is warm and dry. Comments: Erythematous scaly rash and right axillary region. Patient notes rash is similar in bilateral groin folds Neurological: General: No focal deficit present. Mental Status: She is alert. Psychiatric: Mood and Affect: Mood normal. Behavior: Behavior normal. Assessment and Plan ASSESSMENT/PLAN: 1. Fungal infection of skin - ICD9: 111.9, ICD10: B36.9 I informed the family that they should be applying the nystatin powder 2-3 times per day. I recommended that they gently wash the area with soap and water and apply a fresh layer of powder 2-3 times. I also encouraged them to separate the skin folds with a towel or some other piece of cloth that will allow the skin to dry. I informed them that it may take 2-3 weeks for symptoms to completely resolve. She was given a refill of the nystatin powder as they are almost out. Family comfortable with plan. - NYSTATIN 100,000 UNIT/GRAM TOPICAL POWDER Yadira Ragsdale APRN.[facility] documented in this encounter [facility] 09-21-2023 Hospital Discharg e instructions Patient Education 09/21/2023 11:46:37 Anxiety Reaction Anxiety Reaction Anxiety is the [...] relieved by rest and mild pain reliever 2905-4852 [employer]. [address] [place] [address], [place] [address]. All rights reserved. This information is not intended as a substitute for professional medical care. Always follow your healthcare professional's instructions. Follow Up Care 09/21/2023 11:26:57 With:NASREEN BERNABE MD Address: [address] [place] [phone] When:2-4 days [facility] 09-21-2023 Emergency department Discharge summary Discharge Instructions Thank you for allowing [facility] to assist you with your healthcare needs. The following is important discharge information regarding your hospital visit. Diagnosis from Today's Visit Anxiety What to Do Next Instructions from Your Care Team No qualifying data available. Post Acute Orders No qualifying data available. You Need to Schedule the Following Appointments Follow Up with NASREEN BERNABE MD When:Within 2-4 days Where:[address] [place] [address] [address] [place] [address]- [phone] Allergies Naprosyn Nausea aspirin NAUSEA naproxen penicillin Medications Please ask your primary doctor or [...] needed for as needed for pain Unchanged amLODIPine (amLODIPine 10 mg oral tablet) 1 tab(s) by mouth Once a day Duration: 30 Days Unchanged apixaban (Eliquis 5 mg oral tablet) 1 tab(s) by mouth Two (2) times a day Unchanged atogepant (Qulipta 60 mg oral tablet) 1 tab(s) by mouth Once a day Unchanged citalopram (CeleXA 40 mg oral tablet) 1 tab(s) by mouth Once a day Anxiety and depression Duration: 30 Days Unchanged cyclobenzaprine (cyclobenzaprine 5 mg oral tablet) 1 tab(s) by mouth Three (3) times a day Duration: 10 Days Unchanged dicyclomine (dicyclomine 20 mg oral tablet) 1 tab(s) by mouth Four (4) times a day as needed for As needed for abdominal discomfort Duration: 3 Days Unchanged docusate (Docu Soft 100 mg oral capsule) 1 cap by mouth Two (2) times a day as needed for for constipation Duration: 14 Days Unchanged docusate (docusate calcium 240 mg oral capsule) 1 cap by mouth Every day as needed for for constipation Duration: 10 Days Unchanged fluticasone/ umeclidinium/ vilanterol (Trelegy Ellipta 100 mcg-62.5 mcg-25 mcg/ inh inhalation powder) 1 puff(s) by inhalation Once a day Asthma in adult Duration: 90 Days Managed by Pulmonology Unchanged gabapentin (gabapentin 100 mg oral capsule) 1 cap by mouth Three (3) times a day TAKE 1 CAPSULE BY MOUTH THREE TIMES DAILY Unchanged galcanezumab (Emgality Prefilled Pen 120 mg/ mL subcutaneous solution) Inject 120 mg every month by subcutaneous route. Unchanged levothyroxine (levothyroxine 100 mcg (0.1 mg) oral tablet) 1 tab(s) by mouth Once a day Unchanged levothyroxine (levothyroxine 200 mcg (0.2 mg) oral tablet) 1 tab(s) by mouth Once a day Unchanged mupirocin topical (mupirocin 2% topical ointment) USE 1 Application two times daily DIRECTED Unchanged nortriptyline (nortriptyline 50 mg oral capsule) 1 cap by mouth Daily at bedtime Unchanged polyethylene glycol 3350 (JRQ5552 oral powder for reconstitution) 17 gram(s) by mouth Every day Unchanged potassium chloride (potassium chloride 10 mEq oral capsule, extended release) Unchanged progesterone (progesterone 200 mg oral capsule) 400 Milligram by mouth Daily at bedtime Unchanged rimegepant [...] oral tablet) 1 tab(s) by mouth Every 12 hours as needed for for pain Unchanged ubrogepant (Ubrelvy 100 mg oral tablet) [...] medication providers or retail pharmacies. Education Materials Anxiety Reaction Anxiety is the [...] relieved by rest and mild pain reliever 3802-8100 [employer]. [address] [place] [address]. All rights reserved. This information is not intended as a substitute for professional medical care. Always follow your healthcare professional's instructions. Additional Information VACCINATE! IT SAVES LIVES! Members of the community who have not yet received the COVID-19 vaccine and would like to receive it can visit one of [facility] vaccine clinics. There are many vaccine clinic locations within the [facility]. For locations and available times, please visit [email or web address] It is important to note that some COVID mobile vaccine clinics are held outdoors and may be canceled in rainy or stormy conditions. To learn more about pediatric vaccinations (ages 5-11), we invite you to visit the [facility] webpage. https://www.[facility].org/p ages/1181-Anqkd-Rsdsdofbvju-Freq jtqwsu-Hsfwi-Uwsnqcuir.html To learn more about the COVID-19 vaccine, we invite you to visit the CDC website for a list of frequently asked questions. https://www.cdc.gov/coronavirus/ 2019-ncov/vaccines/faq.html [facility] Patient Portal Access Instructions: Stay connected with your healthcare team and access your personal medical information anytime with the [facility] Patient Portal. If you would like a full copy of your medical records please contact the [facility] Medical Records Department Tuesday through Tuesday between 8a.m. and 4:30p.m. Please follow the directions below to access the portal: 1.Access the email account you provided upon registration to the [facility].2.Look for an invitation email from [facility].3.Open the email and access the invitation link: Accept Invitation to [facility]4.Fill in the required lee to create your account. Sign into [email or web address] with your username and password that you [...] you will allow to register on the [facility] Patient Portal for access to your information. You can also access the [facility] Patient Portal on the [employer]. Simply click on Health Records under Health Data and then click on the HutGrip logo. HOW TO SAFELY DISPOSE OF PRESCRIPTION [...] Call your local pharmacy or go to [email or web address].Favor/[email or web address] to find one close to you.3.Make use of household items: Use cat litter or old coffee grounds to dispose medications if other options are not available. Mix your drugs with these household products, seal them in an airtight container and throw it into the garbage. Call [facility]: [phone] to be sure your drugs can be [...] COPY Signatures Patient Education Materials Anxiety Reaction Medication Leaflets My discharge plan and instructions have been reviewed and explained to me and I,KAMALA GRAY L understand my current condition and have read and understand these discharge instructions. I have received a written copy of the plan/instructions. If I have questions, I am aware that I should contact my doctor. Patient/Charrer Signature: Date/Time: Relationship to Patient: Witness Name/Signature: Date/Time: [facility] 09-21-2023 Note Sinus rhythm Borderline repol abnrm, anterolateral leads Electronic Signature: LAURA RICHARDSON MD 09/21/2023 11:47:06 [facility] 09-05-2023 [facility] Discharg e instructions Patient Education 09/05/2023 20:58:22 Abdominal Pain Abdominal Pain Abdominal pain is [...] foods again, start with small amounts of tsgo-ls-vueigv, low-fat foods. These include apple sauce, toast, [...] increase stomach acid. Don't use aspirin or zdbp-ohg-irusugx pain and fever medicines, if possible. This includes nonsteroidal anti-inflammatory drugs (NSAIDs). Lose excess weight. Finish eating at least 2 hours before you go to bed or lie down. Raise the head of your bed. 3860-5421 [employer] [place] [address]. All rights reserved. This information is not intended as a substitute for professional medical care. Always follow your healthcare professional's instructions. 09/05/2023 20:58:12 Bladder Infection, Female (Adult) Bladder Infection, Female [...] swelling in the outer vaginal area (labia) 3531-1900 [employer]. [address] [place] [address], [place] [address]. All rights reserved. This information is not intended as a substitute for professional medical care. Always follow your healthcare professional's instructions. 09/05/2023 20:58:09 Constipation (Adult) Constipation (Adult) Constipation means that you have bowel movements that are less frequent than usual. Stools often become very hard and difficult to pass. Constipation is very common. At some point in life, it affects almost everyone. Since everyone's bowel habits are different, what is constipation to one person may not be to another. Your healthcare provider may do tests to diagnose constipation. It depends on what he or she finds when evaluating you. Symptoms of constipation include: Abdominal pain Bloating Vomiting Painful bowel movements Itching, swelling, bleeding, or pain around the anus Causes Constipation can have many causes. These include: Diet low in fiber Too much dairy Not drinking enough liquids Lack of exercise or physical activity (especially true for older adults) Changes in lifestyle or daily routine, including , aging, work, and travel Frequent use or misuse of laxatives Ignoring the urge to have a bowel movement or delaying it until later Medicines, such as certain prescription pain medicines, iron supplements, antacids, certain antidepressants, and calcium supplements Diseases like irritable bowel syndrome, bowel obstructions, stroke, diabetes, thyroid disease, Parkinson disease, hemorrhoids, and colon cancer Complications Potential complications of constipation can include: Hemorrhoids Rectal bleeding from hemorrhoids or anal fissures (skin tears) Hernias Dependency on laxatives Chronic constipation Fecal impaction, a severe form of constipation in which a large amount of hard stool is in your rectum that you can't pass Bowel obstruction or perforation Home care All treatment should be done after talking with your healthcare provider. This is especially true if you have another medical problems, are taking prescription medicines, or are an older adult. Treatment most often involves lifestyle changes. You may also need medicines. Your healthcare provider will tell you which will work best for you. Follow the advice below to help avoid this problem in the future. Lifestyle changes These lifestyle changes can help prevent constipation: Diet. Eat a high-fiber diet, with fresh fruit and vegetables, and reduce dairy intake, meats, and processed foods Fluids. It's important to get enough fluids each day. Drink plenty of water when you eat more fiber. If you are on diet that limits the amount of fluid you can have, talk about this with your healthcare provider. Regular exercise. Check with your healthcare provider first. Medicines Take any medicines as directed. Some laxatives are safe to use only every now and then. Others can be taken on a regular basis. While laxatives don't cause bowel dependence, they are treating the symptoms. So your constipation may return if you don't make other changes. Talk with your healthcare provider or pharmacist if you have questions. Prescription pain medicines can cause constipation. If you are taking this kind of medicine, ask your healthcare provider if you should also take a stool softener. Medicines you may take to treat constipation include: Fiber supplements Stool softeners Laxatives Enemas Rectal suppositories Follow-up care Follow up with your healthcare provider if symptoms don't get better in the next few days. You may need to have more tests or see a specialist. Call 911 Call 911 if any of these occur: Trouble breathing Stiff, rigid abdomen that is severely painful to touch Confusion Fainting or loss of consciousness Rapid heart rate Chest pain When to seek medical advice Call your healthcare provider right away if any of these occur: Fever of 100.4 F (38 C) or higher, or as directed by your healthcare provider Failure to resume normal bowel movements Pain in your abdomen or back gets worse Nausea or vomiting Swelling in your abdomen Blood in the stool Black, tarry stool Involuntary weight loss Weakness 7302-5220 [employer]. [address] [place] [address]. All rights reserved. This information is not intended as a substitute for professional medical care. Always follow your healthcare professional's instructions. Follow Up Care 09/05/2023 18:24:33 With:NASREEN BERNABE MD Address: [address] [place] [phone]- [phone] When:2-4 days Comments:Return to ED if symptoms worsen [facility] 09-05-2023 Note Discharge Instructions Thank you for allowing [facility] to assist you with your healthcare needs. The following is important discharge information regarding your hospital visit. Diagnosis from Today's Visit Constipation Urinary tract infection What to Do Next Instructions from Your Care Team No qualifying data available. Post Acute Orders No qualifying data available. You Need to Schedule the Following Appointments Follow Up with NASREEN BERNABE MD When:Within 2-4 days Where:[address] [place] [phone] Additional Information: Return to ED if symptoms worsen Allergies Naprosyn Nausea aspirin NAUSEA naproxen penicillin Medications Please ask your primary doctor or pharmacist before taking any other medication not listed, including over the counter drugs, herbal medications, vitamins and or supplements as they may interact with your home medications. What How Much When Why Instructions Last Dose New cephalexin (cephalexin 500 mg oral capsule) 1 cap by mouth Every 12 hours Duration: 5 Days Printed Prescription Changed docusate (Docu Soft 100 mg oral capsule) 1 cap by mouth Two (2) times a day as needed for for constipation Duration: 14 Days Printed Prescription Changed docusate (docusate calcium 240 mg oral capsule) 1 cap by mouth Every day as needed for for constipation Duration: 10 Days Changed polyethylene glycol 3350 (MiraLax oral powder for reconstitution) 17 gram(s) by mouth Two (2) times a day as needed for Constipation Duration: 14 Days Printed Prescription Changed polyethylene glycol 3350 (ECA8046 oral powder for reconstitution) 17 gram(s) by mouth Every day Unchanged acetaminophen (Tylenol Extra Strength 500 mg oral tablet) 3 tab by mouth Every 6 hours as needed for as needed for pain Unchanged amLODIPine (amLODIPine 10 mg oral tablet) 1 tab(s) by mouth Once a day Duration: 30 Days Unchanged apixaban (Eliquis 5 mg oral tablet) 1 tab(s) by mouth Two (2) times a day Unchanged atogepant (Qulipta 60 mg oral tablet) 1 tab(s) by mouth Once a day Unchanged citalopram (CeleXA 40 mg oral tablet) 1 tab(s) by mouth Once a day Anxiety and depression Duration: 30 Days Unchanged cyclobenzaprine (cyclobenzaprine 5 mg oral tablet) 1 tab(s) by mouth Three (3) times a day Duration: 10 Days Unchanged dicyclomine (dicyclomine 20 mg oral tablet) 1 tab(s) by mouth Four (4) times a day as needed for As needed for abdominal discomfort Duration: 3 Days Unchanged fluticasone/ umeclidinium/ vilanterol (Trelegy Ellipta 100 mcg-62.5 mcg-25 mcg/ inh inhalation powder) 1 puff(s) by inhalation Once a day Asthma in adult Duration: 90 Days Managed by Pulmonology Unchanged gabapentin (gabapentin 100 mg oral capsule) 1 cap by mouth Three (3) times a day TAKE 1 CAPSULE BY MOUTH THREE TIMES DAILY Unchanged galcanezumab (Emgality Prefilled Pen 120 mg/ mL subcutaneous solution) Inject 120 mg every month by subcutaneous route. Unchanged levothyroxine (levothyroxine 100 mcg (0.1 mg) oral tablet) 1 tab(s) by mouth Once a day Unchanged levothyroxine (levothyroxine 200 mcg (0.2 mg) oral tablet) 1 tab(s) by mouth Once a day Unchanged mupirocin topical (mupirocin 2% topical ointment) USE 1 Application two times daily DIRECTED Unchanged nortriptyline (nortriptyline 50 mg oral capsule) 1 cap by mouth Daily at bedtime Unchanged potassium chloride (potassium chloride 10 mEq oral capsule, extended release) Unchanged progesterone (progesterone 200 mg oral capsule) 400 Milligram by mouth Daily at bedtime Unchanged rimegepant [...] oral tablet) 1 tab(s) by mouth Every 12 hours as needed for for pain Unchanged ubrogepant (Ubrelvy 100 mg oral tablet) [...] medication providers or retail pharmacies. Education Materials Abdominal Pain Abdominal pain is pain in [...] foods again, start with small amounts of sdqs-av-gzzwof, low-fat foods. These include apple sauce, toast, [...] increase stomach acid. Don't use aspirin or hfzf-kfy-jxlocdd pain and fever medicines, if possible. This includes nonsteroidal anti-inflammatory drugs (NSAIDs). Lose excess weight. Finish eating at least 2 hours before you go to bed or lie down. Raise the head of your bed. [id number] [employer]. [address] [place] [address]. All rights reserved. This information is not [...] swelling in the outer vaginal area (labia) [id number] [employer]. [address] [place] [address]. All rights reserved. This information is not intended as a substitute for professional medical care. Always follow your healthcare professional's instructions. Constipation (Adult) Constipation means that you have bowel movements that are less frequent than usual. Stools often become very hard and difficult to pass. Constipation is very common. At some point in life, it affects almost everyone. Since everyone's bowel habits are different, what is constipation to one person may not be to another. Your healthcare provider may do tests to diagnose constipation. It depends on what he or she finds when evaluating you. Symptoms of constipation include: Abdominal pain Bloating Vomiting Painful bowel movements Itching, swelling, bleeding, or pain around the anus Causes Constipation can have many causes. These include: Diet low in fiber Too much dairy Not drinking enough liquids Lack of exercise or physical activity (especially true for older adults) Changes in lifestyle or daily routine, including , aging, work, and travel Frequent use or misuse of laxatives Ignoring the urge to have a bowel movement or delaying it until later Medicines, such as certain prescription pain medicines, iron supplements, antacids, certain antidepressants, and calcium supplements Diseases like irritable bowel syndrome, bowel obstructions, stroke, diabetes, thyroid disease, Parkinson disease, hemorrhoids, and colon cancer Complications Potential complications of constipation can include: Hemorrhoids Rectal bleeding from hemorrhoids or anal fissures (skin tears) Hernias Dependency on laxatives Chronic constipation Fecal impaction, a severe form of constipation in which a large amount of hard stool is in your rectum that you can't pass Bowel obstruction or perforation Home care All treatment should be done after talking with your healthcare provider. This is especially true if you have another medical problems, are taking prescription medicines, or are an older adult. Treatment most often involves lifestyle changes. You may also need medicines. Your healthcare provider will tell you which will work best for you. Follow the advice below to help avoid this problem in the future. Lifestyle changes These lifestyle changes can help prevent constipation: Diet. Eat a high-fiber diet, with fresh fruit and vegetables, and reduce dairy intake, meats, and processed foods Fluids. It's important to get enough fluids each day. Drink plenty of water when you eat more fiber. If you are on diet that limits the amount of fluid you can have, talk about this with your healthcare provider. Regular exercise. Check with your healthcare provider first. Medicines Take any medicines as directed. Some laxatives are safe to use only every now and then. Others can be taken on a regular basis. While laxatives don't cause bowel dependence, they are treating the symptoms. So your constipation may return if you don't make other changes. Talk with your healthcare provider or pharmacist if you have questions. Prescription pain medicines can cause constipation. If you are taking this kind of medicine, ask your healthcare provider if you should also take a stool softener. Medicines you may take to treat constipation include: Fiber supplements Stool softeners Laxatives Enemas Rectal suppositories Follow-up care Follow up with your healthcare provider if symptoms don't get better in the next few days. You may need to have more tests or see a specialist. Call 911 Call 911 if any of these occur: Trouble breathing Stiff, rigid abdomen that is severely painful to touch Confusion Fainting or loss of consciousness Rapid heart rate Chest pain When to seek medical advice Call your healthcare provider right away if any of these occur: Fever of 100.4 F (38 C) or higher, or as directed by your healthcare provider Failure to resume normal bowel movements Pain in your abdomen or back gets worse Nausea or vomiting Swelling in your abdomen Blood in the stool Black, tarry stool Involuntary weight loss Weakness [id number] [employer]. [address] [place] [address], [place] [address]. All rights reserved. This information is not intended as a substitute for professional medical care. Always follow your healthcare professional's instructions. Additional Information VACCINATE! IT SAVES LIVES! Members of the community who have not yet received the COVID-19 vaccine and would like to receive it can visit one of [facility] vaccine clinics. There are many vaccine clinic locations within the [facility]. For locations and available times, please visit [email or web address] It is important to note that some COVID mobile vaccine clinics are held outdoors and may be canceled in rainy or stormy conditions. To learn more about pediatric vaccinations (ages 5-11), we invite you to visit the [facility] webpage. [email or web address]://[email or web address].[email or web address]/p [email or web address]-Freq kiommj-[email or web address].html To learn more about the COVID-19 vaccine, we invite you to visit the CDC website for a list of frequently asked questions. https://www.cdc.gov/coronavirus/ 2019-ncov/vaccines/faq.html [facility] Patient Portal Access Instructions: Stay connected with your healthcare team and access your personal medical information anytime with the [facility] Patient Portal. If you would like a full copy of your medical records please contact the [facility] Medical Records Department Tuesday through Tuesday between 8a.m. and 4:30p.m. Please follow the directions below to access the portal: 1.Access the email account you provided upon registration to the hospital.2.Look for an invitation email from [facility].3.Open the email and access the invitation link: Accept Invitation to [facility]4.Fill in the required lee to create your account. Sign into [email or web address] with your username and password that you [...] you will allow to register on the [facility] Patient Portal for access to your information. You can also access the [facility] Patient Portal on the [employer]. Simply click on Health Records under Health Data and then click on the [employer] logo. HOW TO SAFELY DISPOSE OF PRESCRIPTION [...] Call your local pharmacy or go to [email or web address] to find one close to you.3.Make use of household items: Use cat litter or old coffee grounds to dispose medications if other options are not available. Mix your drugs with these household products, seal them in an airtight container and throw it into the garbage. Call [facility]: [phone] to be sure your drugs can be [...] a CHART COPY Signatures Patient Education Materials Abdominal Pain Bladder Infection, Female (Adult) Constipation (Adult) Medication Leaflets My discharge plan and instructions have been reviewed and explained to me and ISAAC Nagel APRIL L understand my current condition and have read and understand these discharge instructions. I have received a written copy of the plan/instructions. If I have questions, I am aware that I should contact my doctor. Patient/Charrer Signature: Date/Time: Relationship to Patient: Witness Name/Signature: Date/Time: [facility] 09-05-2023 Note ORIGINAL EXAMINATION: ONE RADIOGRAPHIC VIEW(S) OF THE ABDOMEN ON 7 IMAGES 09/05/2023 7:55 pm COMPARISON: Abdominal radiographs 08/16/2023 HISTORY: ORDERING SYSTEM PROVIDED HISTORY: Reason for Exam: abdominal pain FINDINGS: Suboptimal exam secondary to patient body habitus. There is a relative paucity of bowel gas. No dilated segments of bowel are visible. No acute osseous abnormality. No appreciable subdiaphragmatic free air on the upright radiograph. IMPRESSION: 1. Nonobstructed bowel-gas pattern. 2. No evidence of free air. 3. Stool within a distended rectum is nonspecific but may be seen with constipation and impaction. REPORT CORRECTION I have personally reviewed the images of this examination and edited the preliminary report. Interpreted by: Floyd Hill Preliminary Report By: Tanmay Castaneda Electronically signed By Floyd Hill Dictated Date: 09/05/2023 7:58:16 PM Prelim Date: 09/05/2023 8:02:24 PM Sign Date: 09/05/2023 8:06:49 PM Ordering Provider: SITA ESTRADA [facility] 09-05-2023 Note Sinus rhythm Borderline T abnormalities, diffuse leads Prolonged QT interval Electronic Signature: MD MATHIEU BARRETT MD 09/05/2023 19:15:10 [facility] 09-05-2023 Evaluation + Plan note Diagnostic Tests PendingUrine Culture 09/05/23 Future Scheduled TestsIron Level 11/20/22Thyroid Stimulating Hormone 11/20/22Free T4 11/20/22A1C Hemoglobin 11/20/22Complete Blood Count 11/20/22Lipid Profile 11/20/22Albumin/Creatinine Ratio, Random Urine 11/20/22Vitamin D Level 11/20/22Complete Metabolic Panel 11/20/22TIBC 11/20/22 [facility] 08-22-2023 Hospital Discharg e instructions Patient Education 08/22/2023 11:44:22 Anxiety Reaction Anxiety Reaction Anxiety is the [...] relieved by rest and mild pain reliever 9847-6204 [employer]. [address] [place] [address]. All rights reserved. This information is not intended as a substitute for professional medical care. Always follow your healthcare professional's instructions. Follow Up Care 08/22/2023 10:25:19 With:NASREEN BERNABE MD Address: [address] [place] [phone] When:2-4 days [facility] 08-22-2023 Note Discharge Instructions Thank you for allowing [facility] to assist you with your healthcare needs. The following is important discharge information regarding your hospital visit. What to Do Next Instructions from Your Care Team No qualifying data available. Post Acute Orders No qualifying data available. You Need to Schedule the Following Appointments Follow Up with NASREEN BERNABE MD When:Within 2-4 days Where:[address] [facility] [address] [place] [address]- [phone] Allergies Naprosyn Nausea aspirin NAUSEA naproxen penicillin Medications Please ask your primary doctor or pharmacist before taking any other medication not listed, including over the counter drugs, herbal medications, vitamins and or supplements as they may interact with your home medications. What How Much When Why Instructions Last Dose New hydrOXYzine (Atarax use hydrOXYzine hydrochloride ) 25 Milligram by mouth Three (3) times a day Duration: 7 Days Printed Prescription Unchanged acetaminophen (Tylenol Extra Strength 500 mg oral tablet) 3 tab by mouth Every 6 hours as needed for as needed for pain Unchanged amLODIPine (amLODIPine 10 mg oral tablet) 1 tab(s) by mouth Once a day Duration: 30 Days Unchanged apixaban (Eliquis 5 mg oral tablet) 1 tab(s) by mouth Two (2) times a day Unchanged atogepant (Qulipta 60 mg oral tablet) 1 tab(s) by mouth Once a day Unchanged citalopram (CeleXA 40 mg oral tablet) 1 tab(s) by mouth Once a day Anxiety and depression Duration: 30 Days Unchanged cyclobenzaprine (cyclobenzaprine 5 mg oral tablet) 1 tab(s) by mouth Three (3) times a day Duration: 10 Days Unchanged dicyclomine (dicyclomine 20 mg oral tablet) 1 tab(s) by mouth Four (4) times a day as needed for As needed for abdominal discomfort Duration: 3 Days Unchanged docusate (docusate calcium 240 mg oral capsule) 1 cap by mouth Every day as needed for for constipation Duration: 10 Days Unchanged fluticasone/ umeclidinium/ vilanterol (Trelegy Ellipta 100 mcg-62.5 mcg-25 mcg/ inh inhalation powder) 1 puff(s) by inhalation Once a day Asthma in adult Duration: 90 Days Managed by Pulmonology Unchanged gabapentin (gabapentin 100 mg oral capsule) 1 cap by mouth Three (3) times a day TAKE 1 CAPSULE BY MOUTH THREE TIMES DAILY Unchanged galcanezumab (Emgality Prefilled Pen 120 mg/ mL subcutaneous solution) Inject 120 mg every month by subcutaneous route. Unchanged levothyroxine (levothyroxine 100 mcg (0.1 mg) oral tablet) 1 tab(s) by mouth Once a day Unchanged levothyroxine (levothyroxine 200 mcg (0.2 mg) oral tablet) 1 tab(s) by mouth Once a day Unchanged mupirocin topical (mupirocin 2% topical ointment) USE 1 Application two times daily DIRECTED Unchanged nortriptyline (nortriptyline 50 mg oral capsule) 1 cap by mouth Daily at bedtime Unchanged polyethylene glycol 3350 (EEA4668 oral powder for reconstitution) 17 gram(s) by mouth Every day Unchanged potassium chloride (potassium chloride 10 mEq oral capsule, extended release) Unchanged progesterone (progesterone 200 mg oral capsule) 400 Milligram by mouth Daily at bedtime Unchanged rimegepant [...] oral tablet) 1 tab(s) by mouth Every 12 hours as needed for for pain Unchanged ubrogepant (Ubrelvy 100 mg oral tablet) [...] medication providers or retail pharmacies. Education Materials Anxiety Reaction Anxiety is the [...] relieved by rest and mild pain reliever 9743-7885 [employer]. [address] [place] [address]. All rights reserved. This information is not intended as a substitute for professional medical care. Always follow your healthcare professional's instructions. Additional Information VACCINATE! IT SAVES LIVES! Members of the community who have not yet received the COVID-19 vaccine and would like to receive it can visit one of [facility] vaccine clinics. There are many vaccine clinic locations within the [facility]. For locations and available times, please visit [email or web address] It is important to note that some COVID mobile vaccine clinics are held outdoors and may be canceled in rainy or stormy conditions. To learn more about pediatric vaccinations (ages 5-11), we invite you to visit the [facility] webpage. https://www.[employer].[email or web address]/p ages/8690-Ncqsf-Zbtcappmuxw-Freq [email or web address].html To learn more about the COVID-19 vaccine, we invite you to visit the CDC website for a list of frequently asked questions. https://www.cdc.gov/coronavirus/ 2019-ncov/vaccines/faq.html [facility] Patient Portal Access Instructions: Stay connected with your healthcare team and access your personal medical information anytime with the [facility] Patient Portal. If you would like a full copy of your medical records please contact the [facility] Medical Records Department Tuesday through Tuesday between 8a.m. and 4:30p.m. Please follow the directions below to access the portal: 1.Access the email account you provided upon registration to the [facility].2.Look for an invitation email from [facility].3.Open the email and access the invitation link: Accept Invitation to [facility]4.Fill in the required lee to create your account. Sign into [email or web address] with your username and password that you [...] you will allow to register on the [facility] Patient Portal for access to your information. You can also access the [facility] Patient Portal on the [employer] leigh. Simply click on Health Records under Health Data and then click on the [employer] logo. HOW TO SAFELY DISPOSE OF PRESCRIPTION [...] Call your local pharmacy or go to [email or web address].Favor/[email or web address] to find one close to you.3.Make use of household items: Use cat litter or old coffee grounds to dispose medications if other options are not available. Mix your drugs with these household products, seal them in an airtight container and throw it into the garbage. Call [facility]: [phone] to be sure your drugs can be [...] COPY Signatures Patient Education Materials Anxiety Reaction Medication Leaflets My discharge plan and instructions have been reviewed and explained to me and I,KAMALA GRAY understand my current condition and have read and understand these discharge instructions. I have received a written copy of the plan/instructions. If I have questions, I am aware that I should contact my doctor. Patient/Charrer Signature: Date/Time: Relationship to Patient: Witness Name/Signature: Date/Time: [facility] 08-22-2023 Note ORIGINAL EXAMINATION: ONE XRAY VIEW OF THE CHEST 08/22/2023 10:55 am COMPARISON: 08/16/2023 HISTORY: ORDERING SYSTEM PROVIDED HISTORY: Reason for Exam: dyspnea FINDINGS: The lungs are without acute focal process. There is no effusion or pneumothorax. The cardiomediastinal silhouette is without acute process. The osseous structures are without acute process. IMPRESSION: No acute process. Interpreted by: Lb Delgadillo DO Preliminary Report By: Lb Delgadillo DO Electronically signed By Lb Delgadillo DO Dictated Date: 08/22/2023 11:00:06 AM Prelim Date: 08/22/2023 11:02:22 AM Sign Date: 08/22/2023 11:02:22 AM [facility] Hospital Discharg e instructions Patient Education 08/16/2023 18:51:58 Anxiety Reaction Anxiety Reaction Anxiety is the [...] relieved by rest and mild pain reliever [id number] [employer]. [address] [place] [address], [place] [address]. All rights reserved. This information is not intended as a substitute for professional medical care. Always follow your healthcare professional's instructions. 08/16/2023 18:51:52 Depression Depression Depression is one of the most common mental health problems today. It is not just a state of unhappiness or sadness. It is a true disease. The cause seems to be related to a decrease in chemicals that transmit signals in the brain. Having a family history of depression, alcoholism, or suicide increases the risk. Chronic illness, chronic pain, migraine headaches, and high emotional stress also increase the risk. Depression is something we tend to recognize in others, but may have a hard time seeing in ourselves. It can show in many physical and emotional ways: Loss of appetite Overeating Not being able to sleep Sleeping too much Tiredness not related to physical exertion Restlessness or irritability Slowness of movement or speech Feeling depressed or withdrawn Loss of interest in things you once enjoyed Trouble concentrating, poor memory, trouble making decisions Thoughts of harming or killing oneself, or thoughts that life is not worth living Low self-esteem The treatment for depression may include both medicine and psychotherapy. Antidepressants can reduce suffering and can improve the ability to function during the depressed period. Therapy can offer emotional support and help you understand emotional factors that may be causing the depression. Home care Ongoing care and support help people manage this disease. Find a healthcare provider and therapist who meet your needs. Seek help when you feel like you may be getting ill. Be kind to yourself. Make it a point to do things that you enjoy (gardening, walking in nature, going to a movie). Reward yourself for small successes. Take care of your physical body. Eat a balanced diet (low in saturated fat and high in fruits and vegetables). Exercise at least 3 times a week for 30 minutes. Even mild-moderate exercise (like brisk walking) can make you feel better. Don't drink alcohol, which can make depression worse. Take medicine as prescribed. Tell each of your healthcare providers about all of the prescription and vrmi-odj-scfribn medicines, vitamins, and supplements you take. Certain supplements interact with medicines and can result in dangerous side effects. Ask your pharmacist when you have questions about medicine interactions. Talk with your family and trusted friends about your feelings and thoughts. Ask them to help you recognize behavior changes early so you can get help and, if needed, medicine can be adjusted. Follow-up care Follow up with your healthcare provider, or as advised. Call 911 Call 911 if you: Have suicidal thoughts, a suicide plan, and the means to carry out the plan; or serious thoughts of hurting someone else Have trouble breathing Are very confused Feel very drowsy or have trouble awakening Faint or lose consciousness Have new chest pain that becomes more severe, lasts longer, or spreads into your shoulder, arm, neck, jaw, or back When to seek medical advice Call your healthcare provider right away if any of these happen: Feeling extreme depression, fear, anxiety, or anger toward yourself or others Feeling out of control Feeling that you may try to harm yourself or another Hearing voices that others do not hear Seeing things that others do not see Can t sleep or eat for 3 days in a row Friends or family express concern over your behavior and ask you to seek help [phone] [employer]. [address] [place] [address]. All rights reserved. This information is not intended as a substitute for professional medical care. Always follow your healthcare professional's instructions. 08/16/2023 18:51:46 Constipation (Adult) Constipation (Adult) Constipation means that you have bowel movements that are less frequent than usual. Stools often become very hard and difficult to pass. Constipation is very common. At some point in life, it affects almost everyone. Since everyone's bowel habits are different, what is constipation to one person may not be to another. Your healthcare provider may do tests to diagnose constipation. It depends on what he or she finds when evaluating you. Symptoms of constipation include: Abdominal pain Bloating Vomiting Painful bowel movements Itching, swelling, bleeding, or pain around the anus Causes Constipation can have many causes. These include: Diet low in fiber Too much dairy Not drinking enough liquids Lack of exercise or physical activity (especially true for older adults) Changes in lifestyle or daily routine, including , aging, work, and travel Frequent use or misuse of laxatives Ignoring the urge to have a bowel movement or delaying it until later Medicines, such as certain prescription pain medicines, iron supplements, antacids, certain antidepressants, and calcium supplements Diseases like irritable bowel syndrome, bowel obstructions, stroke, diabetes, thyroid disease, Parkinson disease, hemorrhoids, and colon cancer Complications Potential complications of constipation can include: Hemorrhoids Rectal bleeding from hemorrhoids or anal fissures (skin tears) Hernias Dependency on laxatives Chronic constipation Fecal impaction, a severe form of constipation in which a large amount of hard stool is in your rectum that you can't pass Bowel obstruction or perforation Home care All treatment should be done after talking with your healthcare provider. This is especially true if you have another medical problems, are taking prescription medicines, or are an older adult. Treatment most often involves lifestyle changes. You may also need medicines. Your healthcare provider will tell you which will work best for you. Follow the advice below to help avoid this problem in the future. Lifestyle changes These lifestyle changes can help prevent constipation: Diet. Eat a high-fiber diet, with fresh fruit and vegetables, and reduce dairy intake, meats, and processed foods Fluids. It's important to get enough fluids each day. Drink plenty of water when you eat more fiber. If you are on diet that limits the amount of fluid you can have, talk about this with your healthcare provider. Regular exercise. Check with your healthcare provider first. Medicines Take any medicines as directed. Some laxatives are safe to use only every now and then. Others can be taken on a regular basis. While laxatives don't cause bowel dependence, they are treating the symptoms. So your constipation may return if you don't make other changes. Talk with your healthcare provider or pharmacist if you have questions. Prescription pain medicines can cause constipation. If you are taking this kind of medicine, ask your healthcare provider if you should also take a stool softener. Medicines you may take to treat constipation include: Fiber supplements Stool softeners Laxatives Enemas Rectal suppositories Follow-up care Follow up with your healthcare provider if symptoms don't get better in the next few days. You may need to have more tests or see a specialist. Call 911 Call 911 if any of these occur: Trouble breathing Stiff, rigid abdomen that is severely painful to touch Confusion Fainting or loss of consciousness Rapid heart rate Chest pain When to seek medical advice Call your healthcare provider right away if any of these occur: Fever of 100.4 F (38 C) or higher, or as directed by your healthcare provider Failure to resume normal bowel movements Pain in your abdomen or back gets worse Nausea or vomiting Swelling in your abdomen Blood in the stool Black, tarry stool Involuntary weight loss Weakness [phone] [employer]. [address] [place] [address]. All rights reserved. This information is not intended as a substitute for professional medical care. Always follow your healthcare professional's instructions. Follow Up Care 08/16/2023 12:56:45 With:Follow-up with the provided resources through the crisis counselor as directed. Address:Unknown When:2-4 days With:NASREEN BERNABE MD Address: [address] [place] [phone] When:2-4 days Comments:Return to ED if symptoms worsen [facility] 08-16-2023 Note Discharge Instructions Thank you for allowing [facility] to assist you with your healthcare needs. The following is important discharge information regarding your hospital visit. What to Do Next Instructions from Your Care Team No qualifying data available. Post Acute Orders No qualifying data available. You Need to Schedule the Following Appointments Follow Up with Follow-up with the provided resources through the crisis counselor as directed. When:Within 2-4 days Follow Up with NASREEN BERNABE MD When:Within 2-4 days Where:[address] [place] [address] [phone] Additional Information: Return to ED if symptoms worsen Allergies Naprosyn Nausea aspirin NAUSEA naproxen penicillin Medications Please ask your primary doctor or pharmacist before taking any other medication not listed, including over the counter drugs, herbal medications, vitamins and or supplements as they may interact with your home medications. What How Much When Why Instructions Last Dose New docusate (docusate calcium 240 mg oral capsule) 1 cap by mouth Every day as needed for for constipation Duration: 10 Days Printed Prescription Changed polyethylene glycol 3350 (MiraLax oral powder for reconstitution) 17 gram(s) by mouth Two (2) times a day as needed for Constipation Duration: 5 Days Printed Prescription Changed polyethylene glycol 3350 (IKS3624 oral powder for reconstitution) 17 gram(s) by mouth Every day Unchanged acetaminophen (Tylenol Extra Strength 500 mg oral tablet) 3 tab by mouth Every 6 hours as needed for as needed for pain Unchanged amLODIPine (amLODIPine 10 mg oral tablet) 1 tab(s) by mouth Once a day Duration: 30 Days Unchanged apixaban (Eliquis 5 mg oral tablet) 1 tab(s) by mouth Two (2) times a day Unchanged atogepant (Qulipta 60 mg oral tablet) 1 tab(s) by mouth Once a day Unchanged citalopram (CeleXA 40 mg oral tablet) 1 tab(s) by mouth Once a day Anxiety and depression Duration: 30 Days Unchanged cyclobenzaprine (cyclobenzaprine 5 mg oral tablet) 1 tab(s) by mouth Three (3) times a day Duration: 10 Days Unchanged dicyclomine (dicyclomine 20 mg oral tablet) 1 tab(s) by mouth Four (4) times a day as needed for As needed for abdominal discomfort Duration: 3 Days Unchanged fluticasone/ umeclidinium/ vilanterol (Trelegy Ellipta 100 mcg-62.5 mcg-25 mcg/ inh inhalation powder) 1 puff(s) by inhalation Once a day Asthma in adult Duration: 90 Days Managed by Pulmonology Unchanged gabapentin (gabapentin 100 mg oral capsule) 1 cap by mouth Three (3) times a day TAKE 1 CAPSULE BY MOUTH THREE TIMES DAILY Unchanged galcanezumab (Emgality Prefilled Pen 120 mg/ mL subcutaneous solution) Inject 120 mg every month by subcutaneous route. Unchanged levothyroxine (levothyroxine 100 mcg (0.1 mg) oral tablet) 1 tab(s) by mouth Once a day Unchanged levothyroxine (levothyroxine 200 mcg (0.2 mg) oral tablet) 1 tab(s) by mouth Once a day Unchanged mupirocin topical (mupirocin 2% topical ointment) USE 1 Application two times daily DIRECTED Unchanged nortriptyline (nortriptyline 50 mg oral capsule) 1 cap by mouth Daily at bedtime Unchanged potassium chloride (potassium chloride 10 mEq oral capsule, extended release) Unchanged progesterone (progesterone 200 mg oral capsule) 400 Milligram by mouth Daily at bedtime Unchanged rimegepant [...] oral tablet) 1 tab(s) by mouth Every 12 hours as needed for for pain Unchanged ubrogepant (Ubrelvy 100 mg oral tablet) [...] medication providers or retail pharmacies. Education Materials Anxiety Reaction Anxiety is the [...] relieved by rest and mild pain reliever [phone] [employer]. [address] [place] [address], [place] [id number]. All rights reserved. This information is not intended as a substitute for professional medical care. Always follow your healthcare professional's instructions. Depression Depression is one of the most common mental health problems today. It is not just a state of unhappiness or sadness. It is a true disease. The cause seems to be related to a decrease in chemicals that transmit signals in the brain. Having a family history of depression, alcoholism, or suicide increases the risk. Chronic illness, chronic pain, migraine headaches, and high emotional stress also increase the risk. Depression is something we tend to recognize in others, but may have a hard time seeing in ourselves. It can show in many physical and emotional ways: Loss of appetite Overeating Not being able to sleep Sleeping too much Tiredness not related to physical exertion Restlessness or irritability Slowness of movement or speech Feeling depressed or withdrawn Loss of interest in things you once enjoyed Trouble concentrating, poor memory, trouble making decisions Thoughts of harming or killing oneself, or thoughts that life is not worth living Low self-esteem The treatment for depression may include both medicine and psychotherapy. Antidepressants can reduce suffering and can improve the ability to function during the depressed period. Therapy can offer emotional support and help you understand emotional factors that may be causing the depression. Home care Ongoing care and support help people manage this disease. Find a healthcare provider and therapist who meet your needs. Seek help when you feel like you may be getting ill. Be kind to yourself. Make it a point to do things that you enjoy (gardening, walking in nature, going to a movie). Reward yourself for small successes. Take care of your physical body. Eat a balanced diet (low in saturated fat and high in fruits and vegetables). Exercise at least 3 times a week for 30 minutes. Even mild-moderate exercise (like brisk walking) can make you feel better. Don't drink alcohol, which can make depression worse. Take medicine as prescribed. Tell each of your healthcare providers about all of the prescription and [id number] medicines, vitamins, and supplements you take. Certain supplements interact with medicines and can result in dangerous side effects. Ask your pharmacist when you have questions about medicine interactions. Talk with your family and trusted friends about your feelings and thoughts. Ask them to help you recognize behavior changes early so you can get help and, if needed, medicine can be adjusted. Follow-up care Follow up with your healthcare provider, or as advised. Call 911 Call 911 if you: Have suicidal thoughts, a suicide plan, and the means to carry out the plan; or serious thoughts of hurting someone else Have trouble breathing Are very confused Feel very drowsy or have trouble awakening Faint or lose consciousness Have new chest pain that becomes more severe, lasts longer, or spreads into your shoulder, arm, neck, jaw, or back When to seek medical advice Call your healthcare provider right away if any of these happen: Feeling extreme depression, fear, anxiety, or anger toward yourself or others Feeling out of control Feeling that you may try to harm yourself or another Hearing voices that others do not hear Seeing things that others do not see Can t sleep or eat for 3 days in a row Friends or family express concern over your behavior and ask you to seek help [phone] [employer]. [address] [place] [address], [place] [address]. All rights reserved. This information is not intended as a substitute for professional medical care. Always follow your healthcare professional's instructions. Constipation (Adult) Constipation means that you have bowel movements that are less frequent than usual. Stools often become very hard and difficult to pass. Constipation is very common. At some point in life, it affects almost everyone. Since everyone's bowel habits are different, what is constipation to one person may not be to another. Your healthcare provider may do tests to diagnose constipation. It depends on what he or she finds when evaluating you. Symptoms of constipation include: Abdominal pain Bloating Vomiting Painful bowel movements Itching, swelling, bleeding, or pain around the anus Causes Constipation can have many causes. These include: Diet low in fiber Too much dairy Not drinking enough liquids Lack of exercise or physical activity (especially true for older adults) Changes in lifestyle or daily routine, including , aging, work, and travel Frequent use or misuse of laxatives Ignoring the urge to have a bowel movement or delaying it until later Medicines, such as certain prescription pain medicines, iron supplements, antacids, certain antidepressants, and calcium supplements Diseases like irritable bowel syndrome, bowel obstructions, stroke, diabetes, thyroid disease, Parkinson disease, hemorrhoids, and colon cancer Complications Potential complications of constipation can include: Hemorrhoids Rectal bleeding from hemorrhoids or anal fissures (skin tears) Hernias Dependency on laxatives Chronic constipation Fecal impaction, a severe form of constipation in which a large amount of hard stool is in your rectum that you can't pass Bowel obstruction or perforation Home care All treatment should be done after talking with your healthcare provider. This is especially true if you have another medical problems, are taking prescription medicines, or are an older adult. Treatment most often involves lifestyle changes. You may also need medicines. Your healthcare provider will tell you which will work best for you. Follow the advice below to help avoid this problem in the future. Lifestyle changes These lifestyle changes can help prevent constipation: Diet. Eat a high-fiber diet, with fresh fruit and vegetables, and reduce dairy intake, meats, and processed foods Fluids. It's important to get enough fluids each day. Drink plenty of water when you eat more fiber. If you are on diet that limits the amount of fluid you can have, talk about this with your healthcare provider. Regular exercise. Check with your healthcare provider first. Medicines Take any medicines as directed. Some laxatives are safe to use only every now and then. Others can be taken on a regular basis. While laxatives don't cause bowel dependence, they are treating the symptoms. So your constipation may return if you don't make other changes. Talk with your healthcare provider or pharmacist if you have questions. Prescription pain medicines can cause constipation. If you are taking this kind of medicine, ask your healthcare provider if you should also take a stool softener. Medicines you may take to treat constipation include: Fiber supplements Stool softeners Laxatives Enemas Rectal suppositories Follow-up care Follow up with your healthcare provider if symptoms don't get better in the next few days. You may need to have more tests or see a specialist. Call 911 Call 911 if any of these occur: Trouble breathing Stiff, rigid abdomen that is severely painful to touch Confusion Fainting or loss of consciousness Rapid heart rate Chest pain When to seek medical advice Call your healthcare provider right away if any of these occur: Fever of 100.4 F (38 C) or higher, or as directed by your healthcare provider Failure to resume normal bowel movements Pain in your abdomen or back gets worse Nausea or vomiting Swelling in your abdomen Blood in the stool Black, tarry stool Involuntary weight loss Weakness [phone] [employer]. [address] [place] [address]. All rights reserved. This information is not intended as a substitute for professional medical care. Always follow your healthcare professional's instructions. Additional Information VACCINATE! IT SAVES LIVES! Members of the community who have not yet received the COVID-19 vaccine and would like to receive it can visit one of [facility] vaccine clinics. There are many vaccine clinic locations within the [facility]. For locations and available times, please visit [email or web address] It is important to note that some COVID mobile vaccine clinics are held outdoors and may be canceled in rainy or stormy conditions. To learn more about pediatric vaccinations (ages 5-11), we invite you to visit the [facility] webpage. [email or web address] To learn more about the COVID-19 vaccine, we invite you to visit the CDC website for a list of frequently asked questions. https://www.cdc.gov/coronavirus/ 2019-ncov/vaccines/faq.html [facility] Patient Portal Access Instructions: Stay connected with your healthcare team and access your personal medical information anytime with the [facility] Patient Portal. If you would like a full copy of your medical records please contact the [facility] Medical Records Department Tuesday through Tuesday between 8a.m. and 4:30p.m. Please follow the directions below to access the portal: 1.Access the email account you provided upon registration to the [facility].2.Look for an invitation email from [facility].3.Open the email and access the invitation link: Accept Invitation to [facility]4.Fill in the required lee to create your account. Sign into [email or web address] with your username and password that you [...] you will allow to register on the [facility] Patient Portal for access to your information. You can also access the [facility] Patient Portal on the [employer] leigh. Simply click on Health Records under [...] Call your local pharmacy or go to [email or web address] to find one close to you.3.Make use of household items: Use cat litter or old coffee grounds to dispose medications if other options are not available. Mix your drugs with these household products, seal them in an airtight container and throw it into the garbage. Call [facility]: [phone] to be sure your drugs can be [...] COPY Signatures Patient Education Materials Anxiety Reaction Depression Constipation (Adult) Medication Leaflets My discharge plan and instructions have been reviewed and explained to me and I,KAMALA GRAY L understand my current condition and have read and understand these discharge instructions. I have received a written copy of the plan/instructions. If I have questions, I am aware that I should contact my doctor. Patient/Charrer Signature: Date/Time: Relationship to Patient: Witness Name/Signature: Date/Time: [facility] 08-16-2023 Note ORIGINAL HISTORY: Constipation COMPARISON: 24 January 2016 FINDINGS: The study is limited by habitus. There is formed stool and gas in the large bowel. Small bowel is not directly visualized, although no dilated loops are seen. Free air is not well evaluated. IMPRESSION: No obstruction is seen. Interpreted by: Torsten Pena MD Preliminary Report By: Torsten Pena MD Electronically signed By Torsten Pena MD Dictated Date: 08/16/2023 2:41:00 PM Prelim Date: 08/16/2023 2:41:50 PM Sign Date: 08/16/2023 2:41:50 PM Ordering Provider: [facility] 08-16-2023 Note ORIGINAL HISTORY: Chest pain COMPARISON: 14 August 2023 FINDINGS: The study is limited by habitus. The lungs are clear. The pulmonary vasculature is unremarkable in appearance. IMPRESSION: Clear lungs. Interpreted by: Torsten Pena MD Preliminary Report By: Torsten Pena MD Electronically signed By Torsten Pena MD Dictated Date: 08/16/2023 2:38:47 PM Prelim Date: 08/16/2023 2:39:17 PM Sign Date: 08/16/2023 2:39:17 PM Ordering Provider: [facility] 08-16-2023 Note Sinus rhythm Probable left atrial enlargement RSR' in V1 or V2, right VCD or RVH Nonspecific T abnrm, anterolateral leads Prolonged QT interval Electronic Signature: MD MATHIEU BARRETT MD 08/16/2023 13:36:10 [facility] 08-14-2023 Hospital Discharg e instructions Patient Education 08/14/2023 18:37:30 Chest Pain, Noncardiac Noncardiac Chest Pain Based on your visit today, the healthcare provider doesn t know what is causing your chest pain. In most cases, people who come to the emergency department with chest pain don t have a problem with their heart. Instead, the pain is caused by other conditions. It's important for the healthcare team to be sure you are not having a life threatening cause for chest pain such as a heart attack, blood clot in the lungs, collapsed lung, ruptured esophagus, or tearing of the aorta. Once these major causes have been ruled out, you may have further evaluation for non-heart causes of chest pain. These may be problems with the lungs, muscles, bones, digestive tract, nerves, or mental health. Lung problems Inflammation around the lungs (pleurisy) Collapsed lung (pneumothorax) Fluid around the lungs (pleural effusion) Lung cancer (a rare cause of chest pain) Muscle or bone problems Inflamed cartilage between the ribs (costochondritis) Fibromyalgia Rheumatoid arthritis Chest wall strain Digestive system problems Reflux Stomach ulcer Spasms of the esophagus Gall stones Gallbladder inflammation Mental health conditions Panic or anxiety attacks Emotional distress Your condition doesn t seem serious and your pain doesn t appear to be coming from your heart. But sometimes the signs of a serious problem take more time to appear. Watch for the warning signs listed below. Home care Follow these guidelines when caring for yourself at home: Rest today and avoid strenuous activity. Take any prescribed medicine as directed. Follow-up care Follow up with your healthcare provider, or as advised, if you don t start to feel better within 24 hours. When to seek medical advice Call your healthcare provider right away if any of these occur: A change in the type of pain. Call if it feels different, becomes more serious, lasts longer, or begins to spread into your shoulder, arm, neck, jaw, or back. Shortness of breath You feel more pain when you breathe Cough with dark-colored mucus or blood Weakness, dizziness, or fainting Fever of 100.4 F (38 C) or higher, or as directed by your healthcare provider Swelling, pain, or redness in one leg [phone] [employer]. [address] [place] [address]. All rights reserved. This information is not intended as a substitute for professional medical care. Always follow your healthcare professional's instructions. Follow Up Care 08/14/2023 15:32:21 With:NASREEN BERNABE MD Address: [address] [place] [address] [phone] When:2-4 days [facility] 08-14-2023 Note Discharge Instructions Thank you for allowing [facility] to assist you with your healthcare needs. The following is important discharge information regarding your hospital visit. What to Do Next Instructions from Your Care Team No qualifying data available. Post Acute Orders No qualifying data available. You Need to Schedule the Following Appointments Follow Up with NASREEN BERNABE MD When:Within 2-4 days Where:[address] [facility] [address] [place] [address]- [phone] Allergies Naprosyn Nausea aspirin NAUSEA naproxen penicillin Medications Please ask your primary doctor or [...] needed for as needed for pain Unchanged amLODIPine (amLODIPine 10 mg oral tablet) 1 tab(s) by mouth Once a day Duration: 30 Days Unchanged apixaban (Eliquis 5 mg oral tablet) 1 tab(s) by mouth Two (2) times a day Unchanged atogepant (Qulipta 60 mg oral tablet) 1 tab(s) by mouth Once a day Unchanged citalopram (CeleXA 40 mg oral tablet) 1 tab(s) by mouth Once a day Anxiety and depression Duration: 30 Days Unchanged cyclobenzaprine (cyclobenzaprine 5 mg oral tablet) 1 tab(s) by mouth Three (3) times a day Duration: 10 Days Unchanged dicyclomine (dicyclomine 20 mg oral tablet) 1 tab(s) by mouth Four (4) times a day as needed for As needed for abdominal discomfort Duration: 3 Days Unchanged fluticasone/ umeclidinium/ vilanterol (Trelegy Ellipta 100 mcg-62.5 mcg-25 mcg/ inh inhalation powder) 1 puff(s) by inhalation Once a day Asthma in adult Duration: 90 Days Managed by Pulmonology Unchanged gabapentin (gabapentin 100 mg oral capsule) 1 cap by mouth Three (3) times a day TAKE 1 CAPSULE BY MOUTH THREE TIMES DAILY Unchanged galcanezumab (Emgality Prefilled Pen 120 mg/ mL subcutaneous solution) Inject 120 mg every month by subcutaneous route. Unchanged levothyroxine (levothyroxine 100 mcg (0.1 mg) oral tablet) 1 tab(s) by mouth Once a day Unchanged levothyroxine (levothyroxine 200 mcg (0.2 mg) oral tablet) 1 tab(s) by mouth Once a day Unchanged mupirocin topical (mupirocin 2% topical ointment) USE 1 Application two times daily DIRECTED Unchanged nortriptyline (nortriptyline 50 mg oral capsule) 1 cap by mouth Daily at bedtime Unchanged polyethylene glycol 3350 ([id number] oral powder for reconstitution) 17 gram(s) by mouth Every day Unchanged potassium chloride (potassium chloride 10 mEq oral capsule, extended release) Unchanged progesterone (progesterone 200 mg oral capsule) 400 Milligram by mouth Daily at bedtime Unchanged rimegepant [...] oral tablet) 1 tab(s) by mouth Every 12 hours as needed for for pain Unchanged ubrogepant (Ubrelvy 100 mg oral tablet) [...] medication providers or retail pharmacies. Education Materials Noncardiac Chest Pain Based on your visit today, the healthcare provider doesn t know what is causing your chest pain. In most cases, people who come to the emergency department with chest pain don t have a problem with their heart. Instead, the pain is caused by other conditions. It's important for the healthcare team to be sure you are not having a life threatening cause for chest pain such as a heart attack, blood clot in the lungs, collapsed lung, ruptured esophagus, or tearing of the aorta. Once these major causes have been ruled out, you may have further evaluation for non-heart causes of chest pain. These may be problems with the lungs, muscles, bones, digestive tract, nerves, or mental health. Lung problems Inflammation around the lungs (pleurisy) Collapsed lung (pneumothorax) Fluid around the lungs (pleural effusion) Lung cancer (a rare cause of chest pain) Muscle or bone problems Inflamed cartilage between the ribs (costochondritis) Fibromyalgia Rheumatoid arthritis Chest wall strain Digestive system problems Reflux Stomach ulcer Spasms of the esophagus Gall stones Gallbladder inflammation Mental health conditions Panic or anxiety attacks Emotional distress Your condition doesn t seem serious and your pain doesn t appear to be coming from your heart. But sometimes the signs of a serious problem take more time to appear. Watch for the warning signs listed below. Home care Follow these guidelines when caring for yourself at home: Rest today and avoid strenuous activity. Take any prescribed medicine as directed. Follow-up care Follow up with your healthcare provider, or as advised, if you don t start to feel better within 24 hours. When to seek medical advice Call your healthcare provider right away if any of these occur: A change in the type of pain. Call if it feels different, becomes more serious, lasts longer, or begins to spread into your shoulder, arm, neck, jaw, or back. Shortness of breath You feel more pain when you breathe Cough with dark-colored mucus or blood Weakness, dizziness, or fainting Fever of 100.4 F (38 C) or higher, or as directed by your healthcare provider Swelling, pain, or redness in one leg [id number] [employer]. [address] [place] [address]. All rights reserved. This information is not intended as a substitute for professional medical care. Always follow your healthcare professional's instructions. Additional Information VACCINATE! IT SAVES LIVES! Members of the community who have not yet received the COVID-19 vaccine and would like to receive it can visit one of [facility] vaccine clinics. There are many vaccine clinic locations within the [facility]. For locations and available times, please visit [email or web address] It is important to note that some COVID mobile vaccine clinics are held outdoors and may be canceled in rainy or stormy conditions. To learn more about pediatric vaccinations (ages 5-11), we invite you to visit the [facility] webpage. https://www.[email or web address]/p [email or web address] [email or web address] To learn more about the COVID-19 vaccine, we invite you to visit the CDC website for a list of frequently asked questions. https://www.cdc.gov/coronavirus/ 2019-ncov/vaccines/faq.html [facility] Patient Portal Access Instructions: Stay connected with your healthcare team and access your personal medical information anytime with the [facility] Patient Portal. If you would like a full copy of your medical records please contact the [facility] Medical Records Department Tuesday through Tuesday between 8a.m. and 4:30p.m. Please follow the directions below to access the portal: 1.Access the email account you provided upon registration to the [facility].2.Look for an invitation email from [facility].3.Open the email and access the invitation link: Accept Invitation to [facility]4.Fill in the required lee to create your account. Sign into [email or web address] with your username and password that you [...] you will allow to register on the [facility] Patient Portal for access to your information. You can also access the [facility] Patient Portal on the [employer] leigh. Simply click on Health Records under Health Data and then click on the [employer] logo. HOW TO SAFELY DISPOSE OF PRESCRIPTION [...] Call your local pharmacy or go to http://bit.Favor/2G1Fy8y to find one close to you.3.Make use of household items: Use cat litter or old coffee grounds to dispose medications if other options are not available. Mix your drugs with these household products, seal them in an airtight container and throw it into the garbage. Call [facility]: [phone] to be sure your drugs can be [...] COPY Signatures Patient Education Materials Chest Pain, Noncardiac Medication Leaflets My discharge plan and instructions have been reviewed and explained to me and I,KAMALA GRAY L understand my current condition and have read and understand these discharge instructions. I have received a written copy of the plan/instructions. If I have questions, I am aware that I should contact my doctor. Patient/Charrer Signature: Date/Time: Relationship to Patient: Witness Name/Signature: Date/Time: [facility] Johny[facility] Hannah 08-14-2023 Note Discharge Instructions Thank you for allowing [facility] to assist you with your healthcare needs. The following is important discharge information regarding your hospital visit. What to Do Next Instructions from Your Care Team No qualifying data available. Post Acute Orders No qualifying data available. You Need to Schedule the Following Appointments Follow Up with NASREEN BERNABE MD When:Within 2-4 days Where:[address] [place] [address] [phone] Allergies Naprosyn Nausea aspirin NAUSEA naproxen penicillin Education Materials Noncardiac Chest Pain Based on your visit today, the healthcare provider doesn t know what is causing your chest pain. In most cases, people who come to the emergency department with chest pain don t have a problem with their heart. Instead, the pain is caused by other conditions. It's important for the healthcare team to be sure you are not having a life threatening cause for chest pain such as a heart attack, blood clot in the lungs, collapsed lung, ruptured esophagus, or tearing of the aorta. Once these major causes have been ruled out, you may have further evaluation for non-heart causes of chest pain. These may be problems with the lungs, muscles, bones, digestive tract, nerves, or mental health. Lung problems Inflammation around the lungs (pleurisy) Collapsed lung (pneumothorax) Fluid around the lungs (pleural effusion) Lung cancer (a rare cause of chest pain) Muscle or bone problems Inflamed cartilage between the ribs (costochondritis) Fibromyalgia Rheumatoid arthritis Chest wall strain Digestive system problems Reflux Stomach ulcer Spasms of the esophagus Gall stones Gallbladder inflammation Mental health conditions Panic or anxiety attacks Emotional distress Your condition doesn t seem serious and your pain doesn t appear to be coming from your heart. But sometimes the signs of a serious problem take more time to appear. Watch for the warning signs listed below. Home care Follow these guidelines when caring for yourself at home: Rest today and avoid strenuous activity. Take any prescribed medicine as directed. Follow-up care Follow up with your healthcare provider, or as advised, if you don t start to feel better within 24 hours. When to seek medical advice Call your healthcare provider right away if any of these occur: A change in the type of pain. Call if it feels different, becomes more serious, lasts longer, or begins to spread into your shoulder, arm, neck, jaw, or back. Shortness of breath You feel more pain when you breathe Cough with dark-colored mucus or blood Weakness, dizziness, or fainting Fever of 100.4 F (38 C) or higher, or as directed by your healthcare provider Swelling, pain, or redness in one leg [id number] [employer]. [address] [place] [address]. All rights reserved. This information is not intended as a substitute for professional medical care. Always follow your healthcare professional's instructions. Additional Information VACCINATE! IT SAVES LIVES! Members of the community who have not yet received the COVID-19 vaccine and would like to receive it can visit one of [facility] vaccine clinics. There are many vaccine clinic locations within the [facility]. For locations and available times, please visit [email or web address] It is important to note that some COVID mobile vaccine clinics are held outdoors and may be canceled in rainy or stormy conditions. To learn more about pediatric vaccinations (ages 5-11), we invite you to visit the [facility] webpage. https://www.[facility].org/p ages/4296-Vcqza-Irrlvyrswbx-Freq ausrtu-Ovbaz-Uzzvmyfwh.html To learn more about the COVID-19 vaccine, we invite you to visit the CDC website for a list of frequently asked questions. https://www.cdc.gov/coronavirus/ 2019-ncov/vaccines/faq.html [facility] Patient Portal Access Instructions: Stay connected with your healthcare team and access your personal medical information anytime with the [facility] Patient Portal. If you would like a full copy of your medical records please contact the [facility] Medical Records Department Tuesday through Tuesday between 8a.m. and 4:30p.m. Please follow the directions below to access the portal: 1.Access the email account you provided upon registration to the [facility].2.Look for an invitation email from [facility].3.Open the email and access the invitation link: Accept Invitation to [facility]4.Fill in the required lee to create your account. Sign into [email or web address] with your username and password that you [...] you will allow to register on the [facility] Patient Portal for access to your information. You can also access the [facility] Patient Portal on the [employer]. Simply click on Health Records under Health Data and then click on the [employer] logo. HOW TO SAFELY DISPOSE OF PRESCRIPTION [...] Call your local pharmacy or go to http://Flowgram.Favor/7O4Yr1j to find one close to you.3.Make use of household items: Use cat litter or old coffee grounds to dispose medications if other options are not available. Mix your drugs with these household products, seal them in an airtight container and throw it into the garbage. Call [facility]: [phone] to be sure your drugs can be [...] COPY Signatures Patient Education Materials Chest Pain, Noncardiac Medication Leaflets My discharge plan and instructions have been reviewed and explained to me and I,KAMALA GRAY L understand my current condition and have read and understand these discharge instructions. I have received a written copy of the plan/instructions. If I have questions, I am aware that I should contact my doctor. Patient/Charrer Signature: Date/Time: Relationship to Patient: Witness Name/Signature: Date/Time: [facility] 08-14-2023 Note ORIGINAL EXAMINATION: ONE XRAY VIEW OF THE CHEST 08/14/2023 6:57 pm COMPARISON: AP chest radiograph 08/06/2023. HISTORY: ORDERING SYSTEM PROVIDED HISTORY: Reason for Exam: chest pain FINDINGS: The lungs are without acute focal process. There is no effusion or pneumothorax. The cardiomediastinal silhouette is prominent but without acute process. The osseous structures are without acute process. IMPRESSION: No acute process. Interpreted by: Floyd Hill Preliminary Report By: Floyd Hill Electronically signed By Floyd Hill Dictated Date: 08/14/2023 7:04:48 PM Prelim Date: 08/14/2023 7:05:19 PM Sign Date: 08/14/2023 7:05:19 PM Ordering Provider: ELIAN DICKSON [facility] 08-14-2023 Note Sinus rhythm RSR' in V1 or V2, right VCD or RVH Nonspecific T abnrm, anterolateral leads Prolonged QT interval Electronic Signature: ELIAN DICKSON MD 08/14/2023 18:22:43 [facility] 08-06-2023 Hospital Discharg e instructions Patient Education 08/06/2023 16:42:40 Sleep Apnea, Obstructive Obstructive Sleep Apnea Obstructive sleep apnea is a condition that causes your air passages to become narrowed or blocked during sleep. As a result, breathing stops for short periods. Your body wakes up enough for breathing to begin again, though you don't remember it. The cycle of stopped breathing and brief awakenings can repeat dozens of times a night. This prevents the body from getting to the deeper stages of sleep that are needed for good rest and may cause your body's oxygen level to fall. Signs of sleep apnea include loud snoring, noisy breathing, and gasping sounds during sleep. Daytime symptoms include waking up tired after a full night's sleep, waking up with headaches, feeling very sleepy or falling asleep during the day, and having problems with memory or concentration. Risk factors for sleep apnea include: Being overweight Being a man, or a woman in menopause Smoking Using alcohol or sedating medicines Having enlarged structures in the nose or throat Home care Lifestyle changes that can help treat snoring and sleep apnea include the following: If you are overweight, lose weight. Talk to your healthcare provider about a weight-loss plan for you. Avoid alcohol for 3 to 4 hours before bedtime. Avoid sedating medications. Ask your healthcare provider about the medicines you take. If you smoke, talk to your healthcare provider about ways to quit. Sleep on your side. This can help prevent gravity from pulling relaxed throat tissues into your breathing passages. If you have allergies or sinus problems that block your nose, ask your healthcare provider for help. Follow-up care Follow up with your healthcare provider, or as advised. A diagnosis of sleep apnea is made with a sleep study. Your healthcare provider can tell you more about this test. When to seek medical advice Sleep apnea can make you more likely to have certain health problems. These include high blood pressure, heart attack, stroke, and sexual dysfunction. If you have sleep apnea, talk to your healthcare provider about the best treatments for you. 2109-2190 [employer]. [address] [place] [address]. All rights reserved. This information is not intended as a substitute for professional medical care. Always follow your healthcare professional's instructions. 08/06/2023 16:42:38 Continuous Positive Air Pressure (CPAP) Continuous Positive Air Pressure (CPAP) A mask over the nose gently directs air into the throat to keep the airway open. Continuous positive air pressure (CPAP) uses gentle air pressure to hold the airway open. CPAP is often the most effective treatment for sleep apnea and severe snoring. It works very well for many people. But keep in mind that it can take several adjustments before the setup is right for you. How CPAP works The CPAP machine is a small portable pump that sits beside the bed. The pump sends air through a hose, which is held over your nose alone, or nose and mouth by a mask. Mild air pressure is gently pushed through your airway. The air pressure nudges sagging tissues aside. This widens the airway so you can breathe better. CPAP may be combined with other kinds of therapy for sleep apnea. Types of air pressure treatments There are different types of CPAP. Your doctor or CPAP physical therapist technician will help you decide which type is best for you: Basic CPAP keeps the pressure constant all night long. A bilevel device (BiPAP) provides more pressure when you breathe in and less when you breathe out. A BiPAP machine also may be set to provide automatic breaths to maintain breathing if you stop breathing while sleeping. An autoCPAP device automatically adjusts pressure throughout the night and in response to changes such as body position, sleep stage, and snoring. [id number] [employer]. [address] [place] [address]. All rights reserved. This information is not intended as a substitute for professional medical care. Always follow your healthcare professional's instructions. Follow Up Care 08/06/2023 13:41:52 With:NASREEN BERNABE MD Address: [address] [place] [phone] When:2-4 days [facility] 08-06-2023 Emergency department Discharge summary Discharge Instructions Thank you for allowing [facility] to assist you with your healthcare needs. The following is important discharge information regarding your hospital visit. Diagnosis from Today's Visit Fatigue Obesity hypoventilation syndrome Pleurisy What to Do Next Instructions from Your Care Team No qualifying data available. Post Acute Orders No qualifying data available. You Need to Schedule the Following Appointments Follow Up with NASREEN BERNABE MD When:Within 2-4 days Where:[address] [facility] [address] [place] [address] [phone] Allergies Naprosyn Nausea aspirin NAUSEA naproxen penicillin Medications Please ask your primary doctor or [...] needed for as needed for pain Unchanged amLODIPine (amLODIPine 10 mg oral tablet) 1 tab(s) by mouth Once a day Duration: 30 Days Unchanged apixaban (Eliquis 5 mg oral tablet) 1 tab(s) by mouth Two (2) times a day Unchanged atogepant (Qulipta 60 mg oral tablet) 1 tab(s) by mouth Once a day Unchanged citalopram (CeleXA 40 mg oral tablet) 1 tab(s) by mouth Once a day Anxiety and depression Duration: 30 Days Unchanged cyclobenzaprine (cyclobenzaprine 5 mg oral tablet) 1 tab(s) by mouth Three (3) times a day Duration: 10 Days Unchanged dicyclomine (dicyclomine 20 mg oral tablet) 1 tab(s) by mouth Four (4) times a day as needed for As needed for abdominal discomfort Duration: 3 Days Unchanged fluticasone/ umeclidinium/ vilanterol (Trelegy Ellipta 100 mcg-62.5 mcg-25 mcg/ inh inhalation powder) 1 puff(s) by inhalation Once a day Asthma in adult Duration: 90 Days Managed by Pulmonology Unchanged gabapentin (gabapentin 100 mg oral capsule) 1 cap by mouth Three (3) times a day TAKE 1 CAPSULE BY MOUTH THREE TIMES DAILY Unchanged galcanezumab (Emgality Prefilled Pen 120 mg/ mL subcutaneous solution) Inject 120 mg every month by subcutaneous route. Unchanged levothyroxine (levothyroxine 100 mcg (0.1 mg) oral tablet) 1 tab(s) by mouth Once a day Unchanged levothyroxine (levothyroxine 200 mcg (0.2 mg) oral tablet) 1 tab(s) by mouth Once a day Unchanged mupirocin topical (mupirocin 2% topical ointment) USE 1 Application two times daily DIRECTED Unchanged nortriptyline (nortriptyline 50 mg oral capsule) 1 cap by mouth Daily at bedtime Unchanged polyethylene glycol 3350 ([id number] oral powder for reconstitution) 17 gram(s) by mouth Every day Unchanged potassium chloride (potassium chloride 10 mEq oral capsule, extended release) Unchanged progesterone (progesterone 200 mg oral capsule) 400 Milligram by mouth Daily at bedtime Unchanged rimegepant [...] oral tablet) 1 tab(s) by mouth Every 12 hours as needed for for pain Unchanged ubrogepant (Ubrelvy 100 mg oral tablet) [...] medication providers or retail pharmacies. Education Materials Obstructive Sleep Apnea Obstructive sleep apnea is a condition that causes your air passages to become narrowed or blocked during sleep. As a result, breathing stops for short periods. Your body wakes up enough for breathing to begin again, though you don't remember it. The cycle of stopped breathing and brief awakenings can repeat dozens of times a night. This prevents the body from getting to the deeper stages of sleep that are needed for good rest and may cause your body's oxygen level to fall. Signs of sleep apnea include loud snoring, noisy breathing, and gasping sounds during sleep. Daytime symptoms include waking up tired after a full night's sleep, waking up with headaches, feeling very sleepy or falling asleep during the day, and having problems with memory or concentration. Risk factors for sleep apnea include: Being overweight Being a man, or a woman in menopause Smoking Using alcohol or sedating medicines Having enlarged structures in the nose or throat Home care Lifestyle changes that can help treat snoring and sleep apnea include the following: If you are overweight, lose weight. Talk to your healthcare provider about a weight-loss plan for you. Avoid alcohol for 3 to 4 hours before bedtime. Avoid sedating medications. Ask your healthcare provider about the medicines you take. If you smoke, talk to your healthcare provider about ways to quit. Sleep on your side. This can help prevent gravity from pulling relaxed throat tissues into your breathing passages. If you have allergies or sinus problems that block your nose, ask your healthcare provider for help. Follow-up care Follow up with your healthcare provider, or as advised. A diagnosis of sleep apnea is made with a sleep study. Your healthcare provider can tell you more about this test. When to seek medical advice Sleep apnea can make you more likely to have certain health problems. These include high blood pressure, heart attack, stroke, and sexual dysfunction. If you have sleep apnea, talk to your healthcare provider about the best treatments for you. [id number] [employer]. [address] [place] [address]. All rights reserved. This information is not intended as a substitute for professional medical care. Always follow your healthcare professional's instructions. Continuous Positive Air Pressure (CPAP) A mask over the nose gently directs air into the throat to keep the airway open. Continuous positive air pressure (CPAP) uses gentle air pressure to hold the airway open. CPAP is often the most effective treatment for sleep apnea and severe snoring. It works very well for many people. But keep in mind that it can take several adjustments before the setup is right for you. How CPAP works The CPAP machine is a small portable pump that sits beside the bed. The pump sends air through a hose, which is held over your nose alone, or nose and mouth by a mask. Mild air pressure is gently pushed through your airway. The air pressure nudges sagging tissues aside. This widens the airway so you can breathe better. CPAP may be combined with other kinds of therapy for sleep apnea. Types of air pressure treatments There are different types of CPAP. Your doctor or CPAP physical therapist technician will help you decide which type is best for you: Basic CPAP keeps the pressure constant all night long. A bilevel device (BiPAP) provides more pressure when you breathe in and less when you breathe out. A BiPAP machine also may be set to provide automatic breaths to maintain breathing if you stop breathing while sleeping. An autoCPAP device automatically adjusts pressure throughout the night and in response to changes such as body position, sleep stage, and snoring. [id number] [employer]. [address] [place] [address]. All rights reserved. This information is not intended as a substitute for professional medical care. Always follow your healthcare professional's instructions. Additional Information VACCINATE! IT SAVES LIVES! Members of the community who have not yet received the COVID-19 vaccine and would like to receive it can visit one of [facility] vaccine clinics. There are many vaccine clinic locations within the [facility]. For locations and available times, please visit [email or web address] It is important to note that some COVID mobile vaccine clinics are held outdoors and may be canceled in rainy or stormy conditions. To learn more about pediatric vaccinations (ages 5-11), we invite you to visit the [facility] webpage. https://www.[facility].org/p ages/8010-Fjkcz-Pabrfzajbpk-Freq qtppvr-Ikruj-Cmhmsanvc.html To learn more about the COVID-19 vaccine, we invite you to visit the CDC website for a list of frequently asked questions. https://www.cdc.gov/coronavirus/ 2019-ncov/vaccines/faq.html [facility] Access Instructions: Stay connected with your healthcare team and access your personal medical information anytime with the [facility] Patient Portal. If you would like a full copy of your medical records please contact the [facility] Medical Records Department Tuesday through Tuesday between 8a.m. and 4:30p.m. Please follow the directions below to access the portal: 1.Access the email account you provided upon registration to the [facility].2.Look for an invitation email from [facility].3.Open the email and access the invitation link: Accept Invitation to [facility]4.Fill in the required lee to create your account. Sign into [email or web address] with your username and password that you [...] you will allow to register on the [facility] Patient Portal for access to your information. You can also access the [facility] Patient Portal on the [employer] leigh. Simply click on Health Records under Health Data and then click on the [employer] logo. HOW TO SAFELY DISPOSE OF PRESCRIPTION [...] Call your local pharmacy or go to http://Flowgram.Favor/3V3Bg7k to find one close to you.3.Make use of household items: Use cat litter or old coffee grounds to dispose medications if other options are not available. Mix your drugs with these household products, seal them in an airtight container and throw it into the garbage. Call [facility]: [phone] to be sure your drugs can be [...] a CHART COPY Signatures Patient Education Materials Sleep Apnea, Obstructive Continuous Positive Air Pressure (CPAP) Medication Leaflets My discharge plan and instructions have been reviewed and explained to me and I,KAMALA GRAY understand my current condition and have read and understand these discharge instructions. I have received a written copy of the plan/instructions. If I have questions, I am aware that I should contact my doctor. Patient/Charrer Signature: Date/Time: Relationship to Patient: Witness Name/Signature: Date/Time: [facility] 08-06-2023 Note ORIGINAL EXAMINATION: ONE XRAY VIEW OF THE CHEST 08/06/2023 3:41 pm COMPARISON: Chest radiograph July 03, 2023 HISTORY: ORDERING SYSTEM PROVIDED HISTORY: Reason for Exam: chest pain FINDINGS: Exam is somewhat limited by patient body habitus. The cardiomediastinal silhouette is probably not significantly changed allowing for depth of inspiration. There are bibasilar hypoventilatory changes. No overt central vascular congestion, large pleural effusion or significant appreciable pneumothorax. No acute osseous abnormality. IMPRESSION: Bibasilar hypoventilatory changes. Interpreted by: Zee Sinclair MD Preliminary Report By: Zee Sinclair MD Electronically signed By Zee Sinclair MD Dictated Date: 08/06/2023 4:28:10 PM Prelim Date: 08/06/2023 4:30:06 PM Sign Date: 08/06/2023 4:30:06 PM Ordering Provider: ILANA MORGAN [facility] 08-06-2023 Note Sinus rhythm Borderline left axis deviation Low voltage, precordial leads Nonspecific T abnrm, anterolateral leads Compared to ECG at 2023 17:52:33 BORDERLINE ECG Electronic Signature: ILANA MORGAN DO 08/06/2023 14:09:59 [facility] 2023 Hospital Discharg e instructions Patient Education 2023 19:27:20 Hypothyroidism Hypothyroidism You have hypothyroidism. This means your thyroid gland is not making enough thyroid hormone. This hormone is vital to body growth and metabolism. If you don t make enough, many body processes slow down. This can cause symptoms throughout the body. Hypothyroidism can range from mild to severe. The most severe form is called myxedema. There are a number of causes of hypothyroidism. A common cause is Araceli s disease. This disease causes the body s own immune system to attack the thyroid gland. When you have certain treatments, such as surgery to remove the thyroid gland, this can also cause hypothyroidism. Sometimes the thyroid gland is not functioning because of lack of stimulation from the pituitary gland. Symptoms of hypothyroidism can include: Fatigue Trouble concentrating or thinking clearly; forgetfulness Dry skin Hair loss Weight gain Low tolerance to cold Constipation Depression Personality changes Tingling or prickling of the hands or feet Heavy, absent, or irregular periods (women only) Older adults may sometimes have other symptoms. These can include: Muscle aches and weakness Confusion Incontinence (unable to control urine or stool) Trouble moving around Falling Treatment for hypothyroidism involves taking thyroid hormone pills daily. These pills replace the hormone your thyroid doesn t make. You will likely need to take a daily pill for the rest of your life. Tips for taking this medicine are given below. Home care Tips for taking your medicine Take your thyroid hormone pills as prescribed by your healthcare provider. This is most often 1 pill a day on an empty stomach. Use a pillbox labeled with the days of the week. This will help you remember to take your pill each day. Don t take products that contain iron and calcium or antacids within 4 hours of taking your thyroid hormone pills. Don t take other medicines with your thyroid hormone pill without checking with your provider first. Tell your provider if you have any side effects from your medicines that bother you, especially any chest pain or irregular heartbeats. Never change the dosage or stop taking your thyroid pills without talking to your provider first. General care Always talk with your provider before trying other medicines or treatments for your thyroid problem. If you see other healthcare providers, be sure to let them know about your thyroid problem. Let your healthcare provider know if you become because your dose of thyroid hormone will need to be adjusted. Follow-up care See your healthcare provider for checkups as advised. You may need regular tests to check the level of thyroid hormone in your blood. When to seek medical advice Call your healthcare provider right away if any of these occur: New symptoms develop Symptoms return, continue, or worsen even after treatment Extreme fatigue Puffy hands, face, or feet Fast or irregular heartbeat Confusion Call 911 Call 911 if any of these occur: Fainting Chest pain Shortness of breath or trouble breathing [phone] [employer]. [address] [place] [address]. All rights reserved. This information is not intended as a substitute for professional medical care. Always follow your healthcare professional's instructions. Follow Up Care 2023 14:47:13 With:NASREEN BERNABE MD Address: [address] [place] [phone] When:2-4 days [facility] 2023 Emergency department Discharge summary Discharge Instructions Thank you for allowing [facility] to assist you with your healthcare needs. The following is important discharge information regarding your hospital visit. Diagnosis from Today's Visit Fatigue Hypothyroidism What to Do Next Instructions from Your Care Team No qualifying data available. Post Acute Orders No qualifying data available. You Need to Schedule the Following Appointments Follow Up with NASREEN BERNABE MD When:Within 2-4 days Where:[address] [place] [phone] Allergies Naprosyn Nausea aspirin NAUSEA naproxen penicillin Medications Please ask your primary doctor or pharmacist before taking any other medication not listed, including over the counter drugs, herbal medications, vitamins and or supplements as they may interact with your home medications. What How Much When Why Instructions Last Dose Changed levothyroxine (levothyroxine 100 mcg (0.1 mg) oral tablet) 1 tab(s) by mouth Once a day Printed Prescription Changed levothyroxine (levothyroxine 200 mcg (0.2 mg) oral tablet) 1 tab(s) by mouth Once a day Unchanged acetaminophen (Tylenol Extra Strength 500 mg oral tablet) 3 tab by mouth Every 6 hours as needed for as needed for pain Unchanged amLODIPine (amLODIPine 10 mg oral tablet) 1 tab(s) by mouth Once a day Duration: 30 Days Unchanged apixaban (Eliquis 5 mg oral tablet) 1 tab(s) by mouth Two (2) times a day Unchanged atogepant (Qulipta 60 mg oral tablet) 1 tab(s) by mouth Once a day Unchanged citalopram (CeleXA 40 mg oral tablet) 1 tab(s) by mouth Once a day Anxiety and depression Duration: 30 Days Unchanged cyclobenzaprine (cyclobenzaprine 5 mg oral tablet) 1 tab(s) by mouth Three (3) times a day Duration: 10 Days Unchanged dicyclomine (dicyclomine 20 mg oral tablet) 1 tab(s) by mouth Four (4) times a day as needed for As needed for abdominal discomfort Duration: 3 Days Unchanged fluticasone/ umeclidinium/ vilanterol (Trelegy Ellipta 100 mcg-62.5 mcg-25 mcg/ inh inhalation powder) 1 puff(s) by inhalation Once a day Asthma in adult Duration: 90 Days Managed by Pulmonology Unchanged gabapentin (gabapentin 100 mg oral capsule) 1 cap by mouth Three (3) times a day TAKE 1 CAPSULE BY MOUTH THREE TIMES DAILY Unchanged galcanezumab (Emgality Prefilled Pen 120 mg/ mL subcutaneous solution) Inject 120 mg every month by subcutaneous route. Unchanged mupirocin topical (mupirocin 2% topical ointment) USE 1 Application two times daily DIRECTED Unchanged nortriptyline (nortriptyline 50 mg oral capsule) 1 cap by mouth Daily at bedtime Unchanged polyethylene glycol 3350 (FFT3901 oral powder for reconstitution) 17 gram(s) by mouth Every day Unchanged potassium chloride (potassium chloride 10 mEq oral capsule, extended release) Unchanged progesterone (progesterone 200 mg oral capsule) 400 Milligram by mouth Daily at bedtime Unchanged rimegepant [...] oral tablet) 1 tab(s) by mouth Every 12 hours as needed for for pain Unchanged ubrogepant (Ubrelvy 100 mg oral tablet) [...] medication providers or retail pharmacies. Education Materials Hypothyroidism You have hypothyroidism. This means your thyroid gland is not making enough thyroid hormone. This hormone is vital to body growth and metabolism. If you don t make enough, many body processes slow down. This can cause symptoms throughout the body. Hypothyroidism can range from mild to severe. The most severe form is called myxedema. There are a number of causes of hypothyroidism. A common cause is Araceli s disease. This disease causes the body s own immune system to attack the thyroid gland. When you have certain treatments, such as surgery to remove the thyroid gland, this can also cause hypothyroidism. Sometimes the thyroid gland is not functioning because of lack of stimulation from the pituitary gland. Symptoms of hypothyroidism can include: Fatigue Trouble concentrating or thinking clearly; forgetfulness Dry skin Hair loss Weight gain Low tolerance to cold Constipation Depression Personality changes Tingling or prickling of the hands or feet Heavy, absent, or irregular periods (women only) Older adults may sometimes have other symptoms. These can include: Muscle aches and weakness Confusion Incontinence (unable to control urine or stool) Trouble moving around Falling Treatment for hypothyroidism involves taking thyroid hormone pills daily. These pills replace the hormone your thyroid doesn t make. You will likely need to take a daily pill for the rest of your life. Tips for taking this medicine are given below. Home care Tips for taking your medicine Take your thyroid hormone pills as prescribed by your healthcare provider. This is most often 1 pill a day on an empty stomach. Use a pillbox labeled with the days of the week. This will help you remember to take your pill each day. Don t take products that contain iron and calcium or antacids within 4 hours of taking your thyroid hormone pills. Don t take other medicines with your thyroid hormone pill without checking with your provider first. Tell your provider if you have any side effects from your medicines that bother you, especially any chest pain or irregular heartbeats. Never change the dosage or stop taking your thyroid pills without talking to your provider first. General care Always talk with your provider before trying other medicines or treatments for your thyroid problem. If you see other healthcare providers, be sure to let them know about your thyroid problem. Let your healthcare provider know if you become because your dose of thyroid hormone will need to be adjusted. Follow-up care See your healthcare provider for checkups as advised. You may need regular tests to check the level of thyroid hormone in your blood. When to seek medical advice Call your healthcare provider right away if any of these occur: New symptoms develop Symptoms return, continue, or worsen even after treatment Extreme fatigue Puffy hands, face, or feet Fast or irregular heartbeat Confusion Call 911 Call 911 if any of these occur: Fainting Chest pain Shortness of breath or trouble breathing [phone] [employer]. [address] [place] [address]. All rights reserved. This information is not intended as a substitute for professional medical care. Always follow your healthcare professional's instructions. Additional Information VACCINATE! IT SAVES LIVES! Members of the community who have not yet received the COVID-19 vaccine and would like to receive it can visit one of [facility] vaccine clinics. There are many vaccine clinic locations within the [facility]. For locations and available times, please visit [email or web address] It is important to note that some COVID mobile vaccine clinics are held outdoors and may be canceled in rainy or stormy conditions. To learn more about pediatric vaccinations (ages 5-11), we invite you to visit the [facility] webpage. https://www.[facility].org/p ages/1221-Bahzl-Yhdsgzgdwhk-Freq mjmacv-Gtehx-Wzvlkgwhv.html To learn more about the COVID-19 vaccine, we invite you to visit the CDC website for a list of frequently asked questions. https://www.cdc.gov/coronavirus/ 2019-ncov/vaccines/faq.html [facility] Patient Portal Access Instructions: Stay connected with your healthcare team and access your personal medical information anytime with the [facility] Patient Portal. If you would like a full copy of your medical records please contact the [facility] Medical Records Department Tuesday through Tuesday between 8a.m. and 4:30p.m. Please follow the directions below to access the portal: 1.Access the email account you provided upon registration to the [facility].2.Look for an invitation email from [facility].3.Open the email and access the invitation link: Accept Invitation to [facility]4.Fill in the required lee to create your account. Sign into [email or web address] with your username and password that you [...] you will allow to register on the [facility] Patient Portal for access to your information. You can also access the [facility] Patient Portal on the [employer] leigh. Simply click on Health Records under Health Data and then click on the [employer] logo. HOW TO SAFELY DISPOSE OF PRESCRIPTION [...] Call your local pharmacy or go to http://bit.Favor/4H9Xi2h to find one close to you.3.Make use of household items: Use cat litter or old coffee grounds to dispose medications if other options are not available. Mix your drugs with these household products, seal them in an airtight container and throw it into the garbage. Call [facility]: [phone] to be sure your drugs can be [...] a CHART COPY Signatures Patient Education Materials Hypothyroidism Medication Leaflets My discharge plan and instructions have been reviewed and explained to me and I,KAMALA GRAY L understand my current condition and have read and understand these discharge instructions. I have received a written copy of the plan/instructions. If I have questions, I am aware that I should contact my doctor. Patient/Charrer Signature: Date/Time: Relationship to Patient: Witness Name/Signature: Date/Time: [facility] 2023 Note Sinus rhythm Borderline left axis deviation Low voltage, precordial leads Abnormal T, consider ischemia, lateral leads EKG interpretation is noted and agreed to in [employer]. The interpretation of this patient's EKG contributed directly to the care and management of this patient. Electronic Signature: FERN MALDONADO 2023 17:56:02 [facility] 07-25-2023 Note HNO ID: [id number] Author: JAC CASTILLO MD Service: ? Author Type: Physician Type: Progress Notes Filed: 07/25/2023 11:23 Note Text: Express Care Triage Note: Patient presents to the [facility] with complaint of feeling really weak/tired and short of breath the last couple days. She is worried her sodium or thyroid may be low causing her symptoms. Denies chest pain, dizziness, palpitations, fever. She will go to [facility] for further evaluation today where diagnostic tests are available (). [facility] 07-25-2023 History of Presen t illness Narrative Express Care Triage Note: Patient presents to the [facility] with complaint of feeling really weak/tired and short of breath the last couple days. She is worried her sodium or thyroid may be low causing her symptoms. Denies chest pain, dizziness, palpitations, fever. She will go to [facility] for further evaluation today where diagnostic tests are available (). documented in this encounter [facility] 07-19-2023 Hospital Discharg e instructions Patient Education 07/19/2023 13:12:27 Anxiety Reaction Anxiety Reaction Anxiety is the [...] relieved by rest and mild pain reliever [phone] [employer]. [address] [place] [address]. All rights reserved. This information is not intended as a substitute for professional medical care. Always follow your healthcare professional's instructions. 07/19/2023 13:12:18 Abdominal Pain Abdominal Pain Abdominal pain is [...] foods again, start with small amounts of tihl-jx-wqyknp, low-fat foods. These include apple sauce, toast, [...] increase stomach acid. Don't use aspirin or flqd-zfg-hcyhdxj pain and fever medicines, if possible. This includes nonsteroidal anti-inflammatory drugs (NSAIDs). Lose excess weight. Finish eating at least 2 hours before you go to bed or lie down. Raise the head of your bed. [phone] [employer]. [address] [place] [address], [place] [address]. All rights reserved. This information is not intended as a substitute for professional medical care. Always follow your healthcare professional's instructions. Follow Up Care 07/19/2023 09:06:04 With:NASREEN BERNABE Address: [address] [place] [address] [phone]- [phone] [email or web address] (1) When:2-4 days Comments:Schedule an appointment for close follow-up.Push fluids, bland diet.Resume routine home medications including anxiety medicine.Use Tylenol for pain and fever as needed.Use dicyclomine for abdominal discomfort not relieved with kidf-ete-shgliga medications.Return to the ED if symptoms worsen. [facility] John[facility] 07-19-2023 Note Discharge Instructions Thank you for allowing [facility] to assist you with your healthcare needs. The following is important discharge information regarding your hospital visit. What to Do Next Instructions from Your Care Team No qualifying data available. Post Acute Orders No qualifying data available. You Need to Schedule the Following Appointments Follow Up with NASREEN BERNABE When: When:Within 2-4 days Where:[address] [facility] [address] [place] [address] [phone] [email or web address] (1) Why: Schedule an appointment for close follow-up. Push fluids, bland diet. Resume routine home medications including anxiety medicine. Use Tylenol for pain and fever as needed. Use dicyclomine for abdominal discomfort not relieved with acst-uuo-voazbwp medications. Return to the ED if symptoms worsen. Allergies Naprosyn Nausea aspirin NAUSEA naproxen penicillin Medications Please ask your primary doctor or pharmacist before taking any other medication not listed, including over the counter drugs, herbal medications, vitamins and or supplements as they may interact with your home medications. What How Much When Why Instructions Last Dose New dicyclomine (dicyclomine 20 mg oral tablet) 1 tab(s) by mouth Four (4) times a day as needed for As needed for abdominal discomfort Duration: 3 Days Printed Prescription Unchanged acetaminophen (Tylenol Extra Strength 500 mg oral tablet) 3 tab by mouth Every 6 hours as needed for as needed for pain Unchanged amLODIPine (amLODIPine 10 mg oral tablet) 1 tab(s) by mouth Once a day Duration: 30 Days Unchanged apixaban (Eliquis 5 mg oral tablet) 1 tab(s) by mouth Two (2) times a day Unchanged atogepant (Qulipta 60 mg oral tablet) 1 tab(s) by mouth Once a day Unchanged citalopram (CeleXA 40 mg oral tablet) 1 tab(s) by mouth Once a day Anxiety and depression Duration: 30 Days Unchanged cyclobenzaprine (cyclobenzaprine 5 mg oral tablet) 1 tab(s) by mouth Three (3) times a day Duration: 10 Days Unchanged fluticasone/ umeclidinium/ vilanterol (Trelegy Ellipta 100 mcg-62.5 mcg-25 mcg/ inh inhalation powder) 1 puff(s) by inhalation Once a day Asthma in adult Duration: 90 Days Managed by Pulmonology Unchanged gabapentin (gabapentin 100 mg oral capsule) 1 cap by mouth Three (3) times a day TAKE 1 CAPSULE BY MOUTH THREE TIMES DAILY Unchanged galcanezumab (Emgality Prefilled Pen 120 mg/ mL subcutaneous solution) Inject 120 mg every month by subcutaneous route. Unchanged levothyroxine (levothyroxine 200 mcg (0.2 mg) oral tablet) 1 tab(s) by mouth Once a day Unchanged mupirocin topical (mupirocin 2% topical ointment) USE 1 Application two times daily DIRECTED Unchanged nortriptyline (nortriptyline 50 mg oral capsule) 1 cap by mouth Daily at bedtime Unchanged polyethylene glycol 3350 (JLD0504 oral powder for reconstitution) 17 gram(s) by mouth Every day Unchanged potassium chloride (potassium chloride 10 mEq oral capsule, extended release) Unchanged progesterone (progesterone 200 mg oral capsule) 400 Milligram by mouth Daily at bedtime Unchanged rimegepant [...] oral tablet) 1 tab(s) by mouth Every 12 hours as needed for for pain Unchanged ubrogepant (Ubrelvy 100 mg oral tablet) [...] medication providers or retail pharmacies. Education Materials Anxiety Reaction Anxiety is the [...] relieved by rest and mild pain reliever [phone] [employer]. [address] [place] [address], [place] [address]. All rights reserved. This information is not [...] foods again, start with small amounts of ktnh-py-ebgodd, low-fat foods. These include apple sauce, toast, [...] increase stomach acid. Don't use aspirin or uktw-cbd-vripvyb pain and fever medicines, if possible. This includes nonsteroidal anti-inflammatory drugs (NSAIDs). Lose excess weight. Finish eating at least 2 hours before you go to bed or lie down. Raise the head of your bed. 1153-7887 [employer]. [address] [place] [address], [place] [address]. All rights reserved. This information is not intended as a substitute for professional medical care. Always follow your healthcare professional's instructions. Additional Information VACCINATE! IT SAVES LIVES! Members of the community who have not yet received the COVID-19 vaccine and would like to receive it can visit one of [facility] vaccine clinics. There are many vaccine clinic locations within the [facility]. For locations and available times, please visit [email or web address] It is important to note that some COVID mobile vaccine clinics are held outdoors and may be canceled in rainy or stormy conditions. To learn more about pediatric vaccinations (ages 5-11), we invite you to visit the [employer] webpage. [email or web address]://[email or web address]/p [email or web address]-Freq zcqace-[email or web address].html To learn more about the COVID-19 vaccine, we invite you to visit the CDC website for a list of frequently asked questions. https://www.cdc.gov/coronavirus/ 2019-ncov/vaccines/faq.html [facility] Patient Portal Access Instructions: Stay connected with your healthcare team and access your personal medical information anytime with the [facility] Patient Portal. If you would like a full copy of your medical records please contact the [facility] Medical Records Department Tuesday through Tuesday between 8a.m. and 4:30p.m. Please follow the directions below to access the portal: 1.Access the email account you provided upon registration to the hospital.2.Look for an invitation email from [facility].3.Open the email and access the invitation link: Accept Invitation to [facility]4.Fill in the required lee to create your account. Sign into [email or web address] with your username and password that you [...] you will allow to register on the [facility] Patient Portal for access to your information. You can also access the [facility] Patient Portal on the [employer] leigh. Simply click on Health Records under [employer] and then click on the [employer] logo. HOW TO SAFELY DISPOSE OF PRESCRIPTION [...] Call your local pharmacy or go to [email or web address] to find one close to you.3.Make use of household items: Use cat litter or old coffee grounds to dispose medications if other options are not available. Mix your drugs with these household products, seal them in an airtight container and throw it into the garbage. Call [facility]: [phone] to be sure your drugs can be [...] COPY Signatures Patient Education Materials Anxiety Reaction Abdominal Pain Medication Leaflets My discharge plan and instructions have been reviewed and explained to me and I,KAMALA GRAY understand my current condition and have read and understand these discharge instructions. I have received a written copy of the plan/instructions. If I have questions, I am aware that I should contact my doctor. Patient/Charrer Signature: Date/Time: Relationship to Patient: Witness Name/Signature: Date/Time: [facility] 07-19-2023 Note ORIGINAL EXAMINATION: CT OF THE ABDOMEN AND PELVIS WITHOUT CONTRAST07/19/2023 11:03 am TECHNIQUE: CT of the abdomen and pelvis was performed without the administration of intravenous contrast. Multiplanar reformatted images are provided for review. Automated exposure control, iterative reconstruction, and/or weight based adjustment of the mA/kV was utilized to reduce the radiation dose to as low as reasonably achievable. COMPARISON: CT abdomen/pelvis 04/03/2023 HISTORY: ORDERING SYSTEM PROVIDED HISTORY: Reason for Exam: lower abd/low back pain, h/o kidney stones FINDINGS: Limited images of the lower thorax are unremarkable. Stable hypodensity within the medial left hepatic lobe likely reflective of focal fatty infiltration (series 2 image 37). Suspect biliary sludge versus cholelithiasis. The pancreas, spleen, and adrenal glands are unremarkable. Punctate nonobstructive right nephrolithiasis. No left nephrolithiasis. Stable bilateral renal parapelvic cysts. No hydronephrosis. The ureters, urinary bladder and uterus unremarkable. No free pelvic fluid. No pathologically enlarged pelvic or inguinal lymph nodes. The large and small bowel are normal in caliber. No pericecal inflammation. No free intraperitoneal air. No pathologically enlarged abdominal lymph nodes. Chronic skin thickening involving the inferior aspect of the pannus with adjacent subcutaneous edema. Fluid is seen tracking in the posterior subcutaneous tissues from the level of T11 to L5 and similar to prior. The abdominal aorta is nonaneurysmal and atherosclerotic. Mild multilevel degenerative changes of the spine. No acute osseous findings. IMPRESSION: 1. Punctate nonobstructive right nephrolithiasis. 2. Chronic skin thickening involving the inferior aspect of the pannus with adjacent subcutaneous edema which raises concern for cellulitis. Correlate with physical exam. 3. Biliary sludge versus cholelithiasis. I have personally reviewed the images of this examination and agree with the resident's findings and interpretation. Interpreted by: Wes Garcia MD Preliminary Report By: Cliff Rowe Electronically signed By Wes Garcia MD Dictated Date: 07/19/2023 11:16:14 AM Prelim Date: 07/19/2023 12:01:29 PM Sign Date: 07/19/2023 12:01:29 PM Ordering Provider: [facility] 07-03-2023 Hospital Discharg e instructions Patient Education 07/03/2023 18:59:01 Shortness of Breath (Dyspnea) Shortness of Breath (Dyspnea) Shortness of breath is the feeling that you can't catch your breath or get enough air. It is also known as dyspnea. Dyspnea can be caused by many different conditions. They include: Acute asthma attack Worsening of chronic lung diseases such as chronic bronchitis and emphysema Heart failure. This is when weak heart muscle allows extra fluid to collect in the lungs. Panic attacks or anxiety. Fear can cause rapid breathing (hyperventilation). Pneumonia, or an infection in the lung tissue Exposure to toxic substances, fumes, smoke, or certain medicines Blood clot in the lung (pulmonary embolism). This is often from a piece of blood clot in a deep vein of the leg (deep vein thrombosis) that breaks off and travels to the lungs. Heart attack or heart-related chest pain (angina) Anemia Collapsed lung (pneumothorax) Dehydration Based on your visit today, the exact cause of your shortness of breath is not certain. Your tests don t show any of the serious causes of dyspnea. You may need other tests to find out if you have a serious problem. It s important to watch for any new symptoms or symptoms that get worse. Follow up with your healthcare provider as directed. Home care Follow these tips to take care of yourself at home: When your symptoms are better, go back to your usual activities. If you smoke, you should stop. Join a quit-smoking program or ask your healthcare provider for help. Eat a healthy diet and get plenty of sleep. Get regular exercise. Talk with your healthcare provider before starting to exercise, especially if you have other medical problems. Cut down on the amount of caffeine and stimulants you consume. Follow-up care Follow up with your healthcare provider, or as advised. If tests were done, you will be told if your treatment needs to be changed. You can call as directed for the results. If an X-ray was taken, a specialist will review it. You will be notified of any new findings that may affect your care. Call 911 Shortness of breath may be a sign of a serious medical problem. For example, it may be a problem with your heart or lungs. Call 911 if you have worsening shortness of breath or trouble breathing, especially with any of the symptoms below: Confusion or difficulty waking Fainting or loss of consciousness. Fast or irregular heartbeat Coughing up blood Pain in your chest, arm, shoulder, neck, or upper back Sweating When to seek medical advice Call your healthcare provider right away if any of these occur: Slight shortness of breath or wheezing Redness, pain or swelling in your leg, arm, or other body area Swelling in both legs or ankles Fast weight gain Dizziness or weakness Fever of 100.4 F (38 C) or higher, or as directed by your healthcare provider [id number] [employer]. [address] [place] [address]. All rights reserved. This information is not intended as a substitute for professional medical care. Always follow your healthcare professional's instructions. 07/03/2023 18:58:58 Chest Pain, Uncertain Cause Uncertain Causes of [...] Swelling, pain or redness in one leg [id number] [employer]. [address] [place] [address]. All rights reserved. This information is not intended as a substitute for professional medical care. Always follow your healthcare professional's instructions. Follow Up Care 07/03/2023 17:33:28 With:Go to emergency room if symptoms worsen Address:Unknown When:2-4 days With:CRISTINA KOWALSKI MD Address: [address] [facility] [address] [facility] [place] [address] [phone] When:2-4 days With:NASREEN BERNABE MD Address: [address] [place] [address]- [phone] When:2-4 days Comments:Return to ED if symptoms worsen [facility] 07-03-2023 Note Discharge Instructions Thank you for allowing [facility] to assist you with your healthcare needs. The following is important discharge information regarding your hospital visit. Diagnosis from Today's Visit Chest pain Dyspnea SOB - Shortness of breath What to Do Next Instructions from Your Care Team No qualifying data available. Post Acute Orders No qualifying data available. You Need to Schedule the Following Appointments Follow Up with Go to emergency room if symptoms worsen When Within 2-4 days Follow Up with CRISTINA KOWALSKI MD When Within 2-4 days Where: [address] [facility] [place] [address] [phone] Follow Up with NASREEN BERNABE MD When Within 2-4 days Why: Return to ED if symptoms worsen Where: [address] [place] [address]- [phone] Allergies Naprosyn (Nausea) aspirin (NAUSEA) naproxen penicillin Medications Please ask your primary doctor or [...] needed for as needed for pain Unchanged amLODIPine (amLODIPine 10 mg oral tablet) 1 tab(s) by mouth Once a day Duration: 30 Days Unchanged apixaban (Eliquis 5 mg oral tablet) 1 tab(s) by mouth Two (2) times a day Unchanged atogepant (Qulipta 60 mg oral tablet) 1 tab(s) by mouth Once a day Unchanged citalopram (CeleXA 40 mg oral tablet) 1 tab(s) by mouth Once a day Anxiety and depression Duration: 30 Days Unchanged cyclobenzaprine (cyclobenzaprine 5 mg oral tablet) 1 tab(s) by mouth Three (3) times a day Duration: 10 Days Unchanged fluticasone/ umeclidinium/ vilanterol (Trelegy Ellipta 100 mcg-62.5 mcg-25 mcg/ inh inhalation powder) 1 puff(s) by inhalation Once a day Asthma in adult Duration: 90 Days Managed by Pulmonology Unchanged gabapentin (gabapentin 100 mg oral capsule) 1 cap by mouth Three (3) times a day TAKE 1 CAPSULE BY MOUTH THREE TIMES DAILY Unchanged galcanezumab (Emgality Prefilled Pen 120 mg/ mL subcutaneous solution) Inject 120 mg every month by subcutaneous route. Unchanged levothyroxine (levothyroxine 200 mcg (0.2 mg) oral tablet) 1 tab(s) by mouth Once a day Unchanged mupirocin topical (mupirocin 2% topical ointment) USE 1 Application two times daily DIRECTED Unchanged nortriptyline (nortriptyline 50 mg oral capsule) 1 cap by mouth Daily at bedtime Unchanged polyethylene glycol 3350 ([id number] oral powder for reconstitution) 17 gram(s) by mouth Every day Unchanged potassium chloride (potassium chloride 10 mEq oral capsule, extended release) Unchanged progesterone (progesterone 200 mg oral capsule) 400 Milligram by mouth Daily at bedtime Unchanged rimegepant [...] oral tablet) 1 tab(s) by mouth Every 12 hours as needed for for pain Unchanged ubrogepant (Ubrelvy 100 mg oral tablet) [...] medication providers or retail pharmacies. Education Materials Shortness of Breath (Dyspnea) Shortness of breath is the feeling that you can't catch your breath or get enough air. It is also known as dyspnea. Dyspnea can be caused by many different conditions. They include: Acute asthma attack Worsening of chronic lung diseases such as chronic bronchitis and emphysema Heart failure. This is when weak heart muscle allows extra fluid to collect in the lungs. Panic attacks or anxiety. Fear can cause rapid breathing (hyperventilation). Pneumonia, or an infection in the lung tissue Exposure to toxic substances, fumes, smoke, or certain medicines Blood clot in the lung (pulmonary embolism). This is often from a piece of blood clot in a deep vein of the leg (deep vein thrombosis) that breaks off and travels to the lungs. Heart attack or heart-related chest pain (angina) Anemia Collapsed lung (pneumothorax) Dehydration Based on your visit today, the exact cause of your shortness of breath is not certain. Your tests don t show any of the serious causes of dyspnea. You may need other tests to find out if you have a serious problem. It s important to watch for any new symptoms or symptoms that get worse. Follow up with your healthcare provider as directed. Home care Follow these tips to take care of yourself at home: When your symptoms are better, go back to your usual activities. If you smoke, you should stop. Join a quit-smoking program or ask your healthcare provider for help. Eat a healthy diet and get plenty of sleep. Get regular exercise. Talk with your healthcare provider before starting to exercise, especially if you have other medical problems. Cut down on the amount of caffeine and stimulants you consume. Follow-up care Follow up with your healthcare provider, or as advised. If tests were done, you will be told if your treatment needs to be changed. You can call as directed for the results. If an X-ray was taken, a specialist will review it. You will be notified of any new findings that may affect your care. Call 911 Shortness of breath may be a sign of a serious medical problem. For example, it may be a problem with your heart or lungs. Call 911 if you have worsening shortness of breath or trouble breathing, especially with any of the symptoms below: Confusion or difficulty waking Fainting or loss of consciousness. Fast or irregular heartbeat Coughing up blood Pain in your chest, arm, shoulder, neck, or upper back Sweating When to seek medical advice Call your healthcare provider right away if any of these occur: Slight shortness of breath or wheezing Redness, pain or swelling in your leg, arm, or other body area Swelling in both legs or ankles Fast weight gain Dizziness or weakness Fever of 100.4 F (38 C) or higher, or as directed by your healthcare provider [phone] [employer]. [address] [place] [address]. All rights reserved. This information is not [...] Swelling, pain or redness in one leg [phone] [employer]. [address] [place] [address]. All rights reserved. This information is not intended as a substitute for professional medical care. Always follow your healthcare professional's instructions. Additional Information VACCINATE! IT SAVES LIVES! Members of the community who have not yet received the COVID-19 vaccine and would like to receive it can visit one of [facility] vaccine clinics. There are many vaccine clinic locations within the [facility]. For locations and available times, please visit [email or web address] It is important to note that some COVID mobile vaccine clinics are held outdoors and may be canceled in rainy or stormy conditions. To learn more about pediatric vaccinations (ages 5-11), we invite you to visit the [facility] webpage. [email or web address]/p [email or web address]-Hdaeoynyjwe-Freq [email or web address] To learn more about the COVID-19 vaccine, we invite you to visit the CDC website for a list of frequently asked questions. https://www.cdc.gov/coronavirus/ 2019-ncov/vaccines/faq.html [facility] Patient Portal Access Instructions: Stay connected with your healthcare team and access your personal medical information anytime with the [facility] Patient Portal. If you would like a full copy of your medical records please contact the [facility] Medical Records Department Tuesday through Tuesday between 8a.m. and 4:30p.m. Please follow the directions below to access the portal: 1.Access the email account you provided upon registration to the [facility].2.Look for an invitation email from [facility].3.Open the email and access the invitation link: Accept Invitation to [facility]4.Fill in the required lee to create your account. Sign into [email or web address] with your username and password that you [...] you will allow to register on the [facility] Patient Portal for access to your information. You can also access the [facility] Patient Portal on the [employer] leigh. Simply click on Health Records under [...] Call your local pharmacy or go to [email or web address] to find one close to you.3.Make use of household items: Use cat litter or old coffee grounds to dispose medications if other options are not available. Mix your drugs with these household products, seal them in an airtight container and throw it into the garbage. Call [facility]: [phone] to be sure your drugs can be [...] a CHART COPY Signatures Patient Education Materials Shortness of Breath (Dyspnea) Chest Pain, Uncertain Cause Medication Leaflets My discharge plan and instructions have been reviewed and explained to me and I,KAMALA GRAY understand my current condition and have read and understand these discharge instructions. I have received a written copy of the plan/instructions. If I have questions, I am aware that I should contact my doctor. Patient/Charrer Signature: Date/Time: Relationship to Patient: Witness Name/Signature: Date/Time: [facility] 07-03-2023 Note ORIGINAL EXAMINATION: ONE XRAY VIEW OF THE CHEST07/03/2023 6:55 pm CHEST ONE VIEW AP/PA EXAM DESCRIPTION: COMPARISON: Chest, April 29, 2023 HISTORY: ORDERING SYSTEM PROVIDED HISTORY: Reason for Exam: SOB/cough/fever FINDINGS: Single AP radiograph of the chest was obtained. The lungs are clear without evidence of focal consolidation, mass, pleural effusion, or pneumothorax. The cardiomediastinal silhouette is unremarkable. The bones and soft tissues are unremarkable. IMPRESSION: No radiographic evidence of acute cardiopulmonary disease. Interpreted by: Renzo Meng MD Preliminary Report By: Renzo Meng MD Electronically signed By Renzo Meng MD Dictated Date: 07/03/2023 7:17:51 PM Prelim Date: 07/03/2023 7:18:06 PM Sign Date: 07/03/2023 7:18:06 PM Ordering Provider: MATHIEU BARRETT [facility] 07-03-2023 Note Sinus rhythm Borderline left axis deviation Low voltage, precordial leads Abnormal R-wave progression, late transition Borderline abnrm T, anterolateral leads Prolonged QT interval Electronic Signature: MD MATHIEU BARRETT MD 07/03/2023 18:38:36 [facility] 06-20-2023 Note HNO ID: [id number] Author: CORNELIUS BANERJEE PA Service: ? Author Type: Physician [employer]erry Captain Type: Progress Notes Filed: 06/20/2023 12:22 Note Text: This note was created using [employer]. Subjective Kamala Gray is a 52 year old female. HPI 52-year-old female presents for concern for yeast infection under left breast. She has had this in the past. She denies any recent antibiotic use. She does have history of diabetes. She denies any fevers. She states that she noticed the rash about 3 days ago. She reports she has had nystatin powder in the past which helped. She denies any rash anywhere else. No other complaint. PAST MEDICAL HISTORY Diagnosis Date Asthma with COPD (HCC) Celiac disease CKD (chronic kidney disease) Diabetes mellitus type 2 (HCC) Gout Hyperlipidemia Hypertension Hypothyroidism Microcytic anemia Obesity, Class III, BMI 40-49.9 (morbid obesity) (HCC) Renal calculi No past surgical history on file. ALLERGIES Hydrochlorothiazide, Naproxen, and Asa [Salicylates] MEDICATIONS apixaban (ELIQUIS) 5 mg tab(s) Take 5 mg by mouth once daily. ondansetron orally disintegrating (ZOFRAN ODT) 4 mg disintegrating tablet Take 1 tablet by mouth every 6 hours as needed for nausea/vomiting. progesterone micronized (PROMETRIUM) 200 mg capsule magnesium oxide 200 mg magnesium tab Take 1 tablet by mouth daily at bedtime. atogepant (QULIPTA) 30 mg tablet Take by mouth. budesonide-formoterol (SYMBICORT) 160-4.5 mcg/actuation inhaler Inhale 2 Puffs as instructed. fremanezumab-vfrm (AJOVY AUTOINJECTOR) 225 mg/1.5 mL auto-injector Inject 225 mg subcutaneously once every month. Do not shake. megestrol (MEGACE) 40 mg tablet Take 40 mg by mouth once daily. TRELEGY ELLIPTA 100-62.5-25 mcg INHALE 1 PUFF DAILY with good oral care levothyroxine (SYNTHROID) 300 mcg tablet Take by mouth. Not taking acetaminophen(TYLENOL 325 MG TAB) nystatin (MYCOSTATIN) powder Apply 1 application to affected area three times a day. benzonatate (TESSALON PERLES) 100 mg capsule Take 2 capsules by mouth three times daily as needed. (Patient not taking: Reported on 06/20/2023) guaiFENesin (MUCINEX FAST-MAX CHEST-CONGEST) 100 mg/5 mL syrup Take 20 mL by mouth every 4 hours as needed. (Patient not taking: Reported on 06/20/2023) No family history on file. Social History Tobacco Use Smoking status: Never Smokeless tobacco: Never Substance Use Topics Alcohol use: No Drug use: Never Review of Systems Constitutional: Negative for chills and fever. HENT: Negative for congestion, ear pain and sore throat. Respiratory: Negative for cough and shortness of breath. Cardiovascular: Negative for chest pain. Gastrointestinal: Negative for diarrhea and vomiting. Skin: Positive for rash. Objective BP 126/76 Pulse 86 Temp 36.7 ?C (98 ?F) Resp 18 Wt 132 kg (291 lb 0.1 oz) LMP (LMP Unknown) SpO2 97% Physical Exam Vitals and nursing note reviewed. Constitutional: General: She is not in acute distress. Appearance: Normal appearance. She is not toxic-appearing. HENT: Nose: Nose normal. Mouth/Throat: Mouth: Mucous membranes are moist. Eyes: Conjunctiva/sclera: Conjunctivae normal. Cardiovascular: Rate and Rhythm: Normal rate and regular rhythm. Pulmonary: Effort: Pulmonary effort is normal. Breath sounds: Normal breath sounds. Skin: General: Skin is warm and dry. Findings: Rash present. Comments: Erythematous rash noted under left breast appears consistent with intertrigo. No fluctuance. No abscess. No breast tenderness. Neurological: Mental Status: She is alert. Assessment and Plan ASSESSMENT/PLAN: 1. Intertrigo - ICD9: 695.89, ICD10: L30.4 -Rx for nystatin powder. Patient states that this has helped her in the past. -Advised to keep the area clean and dry is much as possible. -Follow-up with PCP if symptoms persist. Diagnosis and treatment plan were discussed and questions were answered to the patient's satisfaction. Pt acknowledged understanding of concepts and follow up plan. Specific signs and symptoms that would indicate the need for higher level of care were discussed in detail warranting prompt ER evaluation. ROBLES Koehler [facility] 06-20-2023 History of Presen t illness Narrative This note was created using [employer]. Subjective Kamala Gray is a 52 year old female. HPI 52-year-old female presents for concern for yeast infection under left breast. She has had this in the past. She denies any recent antibiotic use. She does have history of diabetes. She denies any fevers. She states that she noticed the rash about 3 days ago. She reports she has had nystatin powder in the past which helped. She denies any rash anywhere else. No other complaint. PAST MEDICAL HISTORY Diagnosis Date Asthma with COPD (HCC) Celiac disease CKD (chronic kidney disease) Diabetes mellitus type 2 (HCC) Gout Hyperlipidemia Hypertension Hypothyroidism Microcytic anemia Obesity, Class III, BMI 40-49.9 (morbid obesity) (HCC) Renal calculi No past surgical history on file. ALLERGIES Hydrochlorothiazide, Naproxen, and Asa [Salicylates] MEDICATIONS apixaban (ELIQUIS) 5 mg tab(s) Take 5 mg by mouth once daily. ondansetron orally disintegrating (ZOFRAN ODT) 4 mg disintegrating tablet Take 1 tablet by mouth every 6 hours as needed for nausea/vomiting. progesterone micronized (PROMETRIUM) 200 mg capsule magnesium oxide 200 mg magnesium tab Take 1 tablet by mouth daily at bedtime. atogepant (QULIPTA) 30 mg tablet Take by mouth. budesonide-formoterol (SYMBICORT) 160-4.5 mcg/actuation inhaler Inhale 2 Puffs as instructed. fremanezumab-vfrm (AJOVY AUTOINJECTOR) 225 mg/1.5 mL auto-injector Inject 225 mg subcutaneously once every month. Do not shake. megestrol (MEGACE) 40 mg tablet Take 40 mg by mouth once daily. TRELEGY ELLIPTA 100-62.5-25 mcg INHALE 1 PUFF DAILY with good oral care levothyroxine (SYNTHROID) 300 mcg tablet Take by mouth. Not taking acetaminophen(TYLENOL 325 MG TAB) nystatin (MYCOSTATIN) powder Apply 1 application to affected area three times a day. benzonatate (TESSALON PERLES) 100 mg capsule Take 2 capsules by mouth three times daily as needed. (Patient not taking: Reported on 06/20/2023) guaiFENesin (MUCINEX FAST-MAX CHEST-CONGEST) 100 mg/5 mL syrup Take 20 mL by mouth every 4 hours as needed. (Patient not taking: Reported on 06/20/2023) No family history on file. Social History Tobacco Use Smoking status: Never Smokeless tobacco: Never Substance Use Topics Alcohol use: No Drug use: Never Review of Systems Constitutional: Negative for chills and fever. HENT: Negative for congestion, ear pain and sore throat. Respiratory: Negative for cough and shortness of breath. Cardiovascular: Negative for chest pain. Gastrointestinal: Negative for diarrhea and vomiting. Skin: Positive for rash. Objective BP 126/76 Pulse 86 Temp 36.7 C (98 F) Resp 18 Wt 132 kg (291 lb 0.1 oz) LMP (LMP Unknown) SpO2 97% Physical Exam Vitals and nursing note reviewed. Constitutional: General: She is not in acute distress. Appearance: Normal appearance. She is not toxic-appearing. HENT: Nose: Nose normal. Mouth/Throat: Mouth: Mucous membranes are moist. Eyes: Conjunctiva/sclera: Conjunctivae normal. Cardiovascular: Rate and Rhythm: Normal rate and regular rhythm. Pulmonary: Effort: Pulmonary effort is normal. Breath sounds: Normal breath sounds. Skin: General: Skin is warm and dry. Findings: Rash present. Comments: Erythematous rash noted under left breast appears consistent with intertrigo. No fluctuance. No abscess. No breast tenderness. Neurological: Mental Status: She is alert. Assessment and Plan ASSESSMENT/PLAN: 1. Intertrigo - ICD9: 695.89, ICD10: L30.4 -Rx for nystatin powder. Patient states that this has helped her in the past. -Advised to keep the area clean and dry is much as possible. -Follow-up with PCP if symptoms persist. Diagnosis and treatment plan were discussed and questions were answered to the patient's satisfaction. Pt acknowledged understanding of concepts and follow up plan. Specific signs and symptoms that would indicate the need for higher level of care were discussed in detail warranting prompt ER evaluation. ROBLES Koehler documented in this encounter [facility] 05-13-2023 Hospital Discharg e instructions Patient Education 05/13/2023 16:41:57 Possible Causes of Low Back or Leg Pain Possible Causes of Low Back or Leg Pain BIG: The symptoms in your back or leg may be due to pressure on a nerve. This pressure may be caused by a damaged disk or by abnormal bone growth. Either way, you may feel pain, burning, tingling, or numbness. If you have pressure on a nerve that connects to the sciatic nerve, pain may shoot down your leg. Pressure from the disk Constant wear and tear can weaken a disk over time and cause back pain. The disk can then be damaged by a sudden movement or injury. If its soft center starts to bulge, the disk may press on a nerve. Or the outside of the disk may tear, and the soft center may squeeze through and pinch a nerve. Pressure from bone As a disk wears out, the vertebrae right above and below the disk start to touch. This can put pressure on a nerve. Often, abnormal bone (called bone spurs) grows where the vertebrae rub against each other. This can cause the foramen or the spinal canal to narrow (called stenosis) and press against a nerve. [id number] [employer]. [address] [place] [address]. All rights reserved. This information is not intended as a substitute for professional medical care. Always follow your healthcare professional's instructions. 05/13/2023 16:41:47 Leg Swelling in a Single Leg Leg Swelling in a Single Leg Swelling of the arms, feet, ankles, and legs is called edema. It is caused by extra fluid collecting in the tissues. Because of gravity, extra fluid in the body settles to the lowest part. That is why the legs and feet are most affected. You have swelling in a single leg. Some of the causes for swelling in only a single leg include: Infection in the foot or leg Long-term problem with a vein not working well (venous insufficiency) Swollen, twisted vein in the leg (varicose veins) Insect bite or sting on the foot or leg Injury or recent surgery on the foot or leg Blood clot in a deep vein of the leg (deep vein thrombosis or DVT) Inflammation of the joints of the lower leg Medical treatment will depend on what is causing your swelling. Home care Follow these guidelines when caring for yourself at home: Don t wear tight clothing. Keep your legs up while lying or sitting. Take any medicines as directed. If infection, injury, or recent surgery is the cause of your swelling, stay off your legs as much as possible until your symptoms get better. If you have venous insufficiency or varicose veins, don t sit or honing machine operator production one place for long periods of time. Take breaks and walk around every few hours. Talk with your healthcare provider about wearing support stockings to help lessen swelling during the day. Wear compression stockings with your doctor's approval Follow-up care Follow up with your healthcare provider as advised. Call 911 Call 911 if any of these occur: Shortness of breath or trouble breathing Chest pain Coughing up blood Fainting or loss of consciousness When to seek medical advice Call your healthcare provider right away if any of these occur: Increased pain, swelling, warmth, or redness of the leg, ankle, or foot Fever of 100.4 F (38 C) or higher, or as directed by your healthcare provider Weakness or dizziness Shaking chills Drenching sweats [id number] [employer]. [address] [place] [address]. All rights reserved. This information is not intended as a substitute for professional medical care. Always follow your healthcare professional's instructions. Follow Up Care 05/13/2023 15:42:04 With:ARAM JOHNSON Address: [address] [place] [address]- [phone] Business (1) When:2-4 days Comments:Follow-up as needed if symptoms are not improving.Elevate your right leg as much as possible.Limit activity and weightbearing as tolerated.Use Tylenol for pain as needed.Return to the ED if symptoms worsen. [facility] 05-13-2023 Note Discharge Instructions Thank you for allowing [facility] to assist you with your healthcare needs. The following is important discharge information regarding your hospital visit. Diagnosis from Today's Visit Leg pain-swelling What to Do Next Instructions from Your Care Team No qualifying data available. Post Acute Orders No qualifying data available. You Need to Schedule the Following Appointments Follow Up with ARAM JOHNSON When Within 2-4 days Why: Follow-up as needed if symptoms are not improving. Elevate your right leg as much as possible. Limit activity and weightbearing as tolerated. Use Tylenol for pain as needed. Return to the ED if symptoms worsen. Where: [address] [place] [address]- [phone] Business (1) Allergies Naprosyn (Nausea) aspirin (NAUSEA) naproxen penicillin Medications Please ask your primary doctor or [...] needed for as needed for pain Unchanged amLODIPine (amLODIPine 10 mg oral tablet) 1 tab(s) by mouth Once a day Duration: 30 Days Unchanged apixaban (Eliquis 5 mg oral tablet) 1 tab(s) by mouth Two (2) times a day Unchanged atogepant (Qulipta 60 mg oral tablet) 1 tab(s) by mouth Once a day Unchanged citalopram (CeleXA 40 mg oral tablet) 1 tab(s) by mouth Once a day Anxiety and depression Duration: 30 Days Unchanged cyclobenzaprine (cyclobenzaprine 5 mg oral tablet) 1 tab(s) by mouth Three (3) times a day Duration: 10 Days Unchanged fluticasone/ umeclidinium/ vilanterol (Trelegy Ellipta 100 mcg-62.5 mcg-25 mcg/ inh inhalation powder) 1 puff(s) by inhalation Once a day Asthma in adult Duration: 90 Days Managed by Pulmonology Unchanged gabapentin (gabapentin 100 mg oral capsule) 1 cap by mouth Three (3) times a day TAKE 1 CAPSULE BY MOUTH THREE TIMES DAILY Unchanged galcanezumab (Emgality Prefilled Pen 120 mg/ mL subcutaneous solution) Inject 120 mg every month by subcutaneous route. Unchanged levothyroxine (levothyroxine 200 mcg (0.2 mg) oral tablet) 1 tab(s) by mouth Once a day Unchanged mupirocin topical (mupirocin 2% topical ointment) USE 1 Application two times daily DIRECTED Unchanged nortriptyline (nortriptyline 50 mg oral capsule) 1 cap by mouth Daily at bedtime Unchanged polyethylene glycol 3350 (MDI9940 oral powder for reconstitution) 17 gram(s) by mouth Every day Unchanged potassium chloride (potassium chloride 10 mEq oral capsule, extended release) Unchanged progesterone (progesterone 200 mg oral capsule) 400 Milligram by mouth Daily at bedtime Unchanged rimegepant [...] oral tablet) 1 tab(s) by mouth Every 12 hours as needed for for pain Unchanged ubrogepant (Ubrelvy 100 mg oral tablet) [...] medication providers or retail pharmacies. Education Materials Possible Causes of Low Back or Leg Pain BIG: The symptoms in your back or leg may be due to pressure on a nerve. This pressure may be caused by a damaged disk or by abnormal bone growth. Either way, you may feel pain, burning, tingling, or numbness. If you have pressure on a nerve that connects to the sciatic nerve, pain may shoot down your leg. Pressure from the disk Constant wear and tear can weaken a disk over time and cause back pain. The disk can then be damaged by a sudden movement or injury. If its soft center starts to bulge, the disk may press on a nerve. Or the outside of the disk may tear, and the soft center may squeeze through and pinch a nerve. Pressure from bone As a disk wears out, the vertebrae right above and below the disk start to touch. This can put pressure on a nerve. Often, abnormal bone (called bone spurs) grows where the vertebrae rub against each other. This can cause the foramen or the spinal canal to narrow (called stenosis) and press against a nerve. [id number] [employer]. [address] [place] [address]. All rights reserved. This information is not intended as a substitute for professional medical care. Always follow your healthcare professional's instructions. Leg Swelling in a Single Leg Swelling of the arms, feet, ankles, and legs is called edema. It is caused by extra fluid collecting in the tissues. Because of gravity, extra fluid in the body settles to the lowest part. That is why the legs and feet are most affected. You have swelling in a single leg. Some of the causes for swelling in only a single leg include: Infection in the foot or leg Long-term problem with a vein not working well (venous insufficiency) Swollen, twisted vein in the leg (varicose veins) Insect bite or sting on the foot or leg Injury or recent surgery on the foot or leg Blood clot in a deep vein of the leg (deep vein thrombosis or DVT) Inflammation of the joints of the lower leg Medical treatment will depend on what is causing your swelling. Home care Follow these guidelines when caring for yourself at home: Don t wear tight clothing. Keep your legs up while lying or sitting. Take any medicines as directed. If infection, injury, or recent surgery is the cause of your swelling, stay off your legs as much as possible until your symptoms get better. If you have venous insufficiency or varicose veins, don t sit or honing machine operator production one place for long periods of time. Take breaks and walk around every few hours. Talk with your healthcare provider about wearing support stockings to help lessen swelling during the day. Wear compression stockings with your doctor's approval Follow-up care Follow up with your healthcare provider as advised. Call 911 Call 911 if any of these occur: Shortness of breath or trouble breathing Chest pain Coughing up blood Fainting or loss of consciousness When to seek medical advice Call your healthcare provider right away if any of these occur: Increased pain, swelling, warmth, or redness of the leg, ankle, or foot Fever of 100.4 F (38 C) or higher, or as directed by your healthcare provider Weakness or dizziness Shaking chills Drenching sweats [phone] [employer]. [address] [place] [address]. All rights reserved. This information is not intended as a substitute for professional medical care. Always follow your healthcare professional's instructions. Additional Information VACCINATE! IT SAVES LIVES! Members of the community who have not yet received the COVID-19 vaccine and would like to receive it can visit one of [facility] vaccine clinics. There are many vaccine clinic locations within the [facility]. For locations and available times, please visit [email or web address] It is important to note that some COVID mobile vaccine clinics are held outdoors and may be canceled in rainy or stormy conditions. To learn more about pediatric vaccinations (ages 5-11), we invite you to visit the [facility] webpage. [email or web address] To learn more about the COVID-19 vaccine, we invite you to visit the CDC website for a list of frequently asked questions. https://www.cdc.gov/coronavirus/ 2019-ncov/vaccines/faq.html [facility] Patient Portal Access Instructions: Stay connected with your healthcare team and access your personal medical information anytime with the [facility] Patient Portal. If you would like a full copy of your medical records please contact the [facility] Medical Records Department Tuesday through Tuesday between 8a.m. and 4:30p.m. Please follow the directions below to access the portal: 1.Access the email account you provided upon registration to the [facility].2.Look for an invitation email from [facility].3.Open the email and access the invitation link: Accept Invitation to [facility].Fill in the required lee to create your account. Sign into [email or web address] with your username and password that you [...] you will allow to register on the [facility] Patient Portal for access to your information. You can also access the [facility] Patient Portal on the [employer] leigh. Simply click on Health Records under [...] Call your local pharmacy or go to [email or web address] to find one close to you.3.Make use of household items: Use cat litter or old coffee grounds to dispose medications if other options are not available. Mix your drugs with these household products, seal them in an airtight container and throw it into the garbage. Call [facility]: [phone] to be sure your drugs can be [...] a CHART COPY Signatures Patient Education Materials Possible Causes of Low Back or Leg Pain Leg Swelling in a Single Leg Medication Leaflets My discharge plan and instructions have been reviewed and explained to me and I,KAMALA GRAY L understand my current condition and have read and understand these discharge instructions. I have received a written copy of the plan/instructions. If I have questions, I am aware that I should contact my doctor. Patient/Charrer Signature: Date/Time: Relationship to Patient: Witness Name/Signature: Date/Time: [facility] 05-13-2023 Note HNO ID: [id number] Author: TRACEE CHAKRABORTY APRN.WRAPPING CLERK Service: ? Author Type: Nurse Practitioner Type: Progress Notes Filed: 05/13/2023 14:55 Note Text: This note was created using [employer]. Subjective Kamala Gray is a 52 year old female. 52 year old female with PMH thyroid presents for leg swelling. Acute onset over past few weeks, but worsening. She was seen here on 05/04/23 for same. At that time had a foot and ankle xray that were negative. States that swelling has increased in right lower extremity. Can't get my shoe in The history is provided by the patient. No foreign languages professor was used. Pain (foot) Review of Systems Objective BP 180/90 (BP Site: Left Arm, BP Position: Sitting) Pulse 85 Temp 36.1 ?C (96.9 ?F) (Tympanic) Resp 16 Wt 130.7 kg (288 lb 2.3 oz) LMP (LMP Unknown) SpO2 99% Physical Exam Vitals and nursing note reviewed. Constitutional: General: She is not in acute distress. Appearance: Normal appearance. She is obese. Musculoskeletal: General: Swelling and tenderness present. No deformity or signs of injury. Normal range of motion. Right lower leg: Edema present. Left lower leg: No edema. Neurological: Mental Status: She is alert. Assessment and Plan ASSESSMENT/PLAN: 1. Right leg swelling - ICD9: 729.81, ICD10: M79.89 Has had pain for a month. Seen here 05/05/23 Xray negative Presents with progressing swelling. Diffuse right lower extremity swelling Concerns for DVT. Unable to obtain US @ 2:30 on a Tuesday Referred to ED Declines EMS, mom to drive Tracee Chakraborty APRN.WRAPPING CLERK [facility] 05-13-2023 History of Presen t illness Narrative This note was created using [employer]. Subjective Kamala Gray is a 52 year old female. 52 year old female with PMH thyroid presents for leg swelling. Acute onset over past few weeks, but worsening. She was seen here on 05/04/23 for same. At that time had a foot and ankle xray that were negative. States that swelling has increased in right lower extremity. Can't get my shoe in The history is provided by the patient. No foreign languages professor was used. Pain (foot) Review of Systems Objective BP 180/90 (BP Site: Left Arm, BP Position: Sitting) Pulse 85 Temp 36.1 C (96.9 F) (Tympanic) Resp 16 Wt 130.7 kg (288 lb 2.3 oz) LMP (LMP Unknown) SpO2 99% Physical Exam Vitals and nursing note reviewed. Constitutional: General: She is not in acute distress. Appearance: Normal appearance. She is obese. Musculoskeletal: General: Swelling and tenderness present. No deformity or signs of injury. Normal range of motion. Right lower leg: Edema present. Left lower leg: No edema. Neurological: Mental Status: She is alert. Assessment and Plan ASSESSMENT/PLAN: 1. Right leg swelling - ICD9: 729.81, ICD10: M79.89 Has had pain for a month. Seen here 05/05/23 Xray negative Presents with progressing swelling. Diffuse right lower extremity swelling Concerns for DVT. Unable to obtain US @ 2:30 on a Tuesday Referred to ED Declines EMS, mom to drive Tracee Chakraborty APRN.WRAPPING CLERK documented in this encounter [facility] 05-04-2023 History of Presen t illness Narrative Radiology Service Progress Note PATIENT NAME: Kamala Gray DATE OF SERVICE: May 04, 2023 TIME: 12:46 PM PATIENT IDENTITY VERIFICATION COMPLETED USING TWO [...] place to prevent falls during this visit? Offered Assistance with Transfers/Clothing and Instructed Patient to Remain Seated (Not on Exam Table) Until Exam PATIENT GENDER DATA: Female. status: : No status: NO. PATIENT RELEVANT IMPLANT DATA REVIEWED: Not Applicable PATIENT PRESENTS WITH AN IMPLANTABLE OR ATTACHED CHICKEN TENDER: No RADIOLOGY DEPARTMENT: General X-ray: Exam(s) Completed: Lower Extremity X-Ray(s): Ankle, Right and Foot, Right PERIPHERAL IV DATA: Not applicable SIGNED BY: ABEL Garvin) May 04, 2023 12:46 PM documented in this encounter [facility] 05-04-2023 Note HNO ID: [id number] Author: EM KHAN RT (R) Service: Radiology Author Type: Technologist Type: Progress Notes Filed: 05/04/2023 12:58 Note Text: Radiology Service Progress Note PATIENT NAME: Kamala Gray DATE OF SERVICE: May 04, 2023 TIME: 12:46 PM PATIENT IDENTITY VERIFICATION COMPLETED USING TWO [...] place to prevent falls during this visit? Offered Assistance with Transfers/Clothing and Instructed Patient to Remain Seated (Not on Exam Table) Until Exam PATIENT GENDER DATA: Female. status: : No status: NO. PATIENT RELEVANT IMPLANT DATA REVIEWED: Not Applicable PATIENT PRESENTS WITH AN IMPLANTABLE OR ATTACHED CHICKEN TENDER: No RADIOLOGY DEPARTMENT: General X-ray: Exam(s) Completed: Lower Extremity X-Ray(s): Ankle, Right and Foot, Right PERIPHERAL IV DATA: Not applicable SIGNED BY: RT Virgie(Ambreen) May 04, 2023 12:46 PM [facility] 05-04-2023 Note HNO ID: [id number] Author: ISAAC VALENTINE APRN.WRAPPING CLERK Service: ? Author Type: Nurse Practitioner Type: Progress Notes Filed: 05/04/2023 13:22 Note Text: Subjective HPI Nontoxic-appearing female presents urgent care chief complaint right ankle and foot pain. Duration of symptoms 1 month. Associated symptoms right ankle foot pain. States possible fracture of base of second metatarsal in March of this year. Was placed in a boot. Referred to podiatry. Today with persistent discomfort. Most of pain is around heel area. No new injuries. No numbness no tingling. No decrease sensation. Denies any fever body aches chills productive cough chest pain shortness of breath pleuritic pain hemoptysis nausea vomiting abdominal pain change in bowel or bladder habits. Past medical history prescription medication use and allergies reviewed. .Patient presents with: right ankle and heel pain: X 1 month-cannot recall an injury this time PAST MEDICAL HISTORY Diagnosis Date Asthma with [...] every 6 hours as needed for nausea/vomiting. progesterone micronized (PROMETRIUM) 200 mg capsule magnesium oxide 200 mg magnesium tab Take 1 tablet by mouth daily at bedtime. atogepant (QULIPTA) 30 mg tablet Take by mouth. budesonide-formoterol (SYMBICORT) 160-4.5 mcg/actuation inhaler Inhale 2 Puffs as instructed. fremanezumab-vfrm (AJOVY AUTOINJECTOR) 225 mg/1.5 mL auto-injector Inject 225 mg subcutaneously once every month. Do not shake. nystatin (MYCOSTATIN) powder Apply 1 application to affected area three times daily. megestrol (MEGACE) 40 mg tablet Take 40 mg by mouth once daily. TRELEGY ELLIPTA 100-62.5-25 mcg INHALE 1 PUFF DAILY with good oral care levothyroxine (SYNTHROID) 300 mcg tablet Take by mouth. Not taking acetaminophen(TYLENOL 325 MG TAB) apixaban (ELIQUIS) 5 mg tab(s) Take 5 mg by mouth once daily. benzonatate (TESSALON PERLES) 100 mg capsule Take 2 capsules by mouth three times daily as needed. (Patient not taking: Reported on 03/08/2023) guaiFENesin (MUCINEX FAST-MAX CHEST-CONGEST) 100 mg/5 mL syrup Take 20 mL by mouth every 4 hours as needed. (Patient not taking: Reported on 03/08/2023) No family history on file. Social History Tobacco Use Smoking status: Never Smokeless tobacco: Never Substance Use Topics Alcohol use: No Drug use: Never BP 132/84 Pulse 82 Temp 36.5 ?C (97.7 ?F) (Tympanic) Resp 18 Wt (!) 138.8 kg (306 lb) LMP (LMP Unknown) SpO2 100% Review of Systems Constitutional: Negative for chills, fever and malaise/fatigue. HENT: Negative for congestion, ear discharge, ear pain, sinus pain and sore throat. Eyes: Negative for blurred vision, pain, discharge and redness. Respiratory: Negative for cough, hemoptysis, sputum production, shortness of breath, wheezing and stridor. Cardiovascular: Negative for chest pain. Gastrointestinal: Negative for abdominal pain, diarrhea, nausea and vomiting. Musculoskeletal: Negative for myalgias. Skin: Negative for itching and rash. Neurological: Negative for dizziness and headaches. Objective Physical Exam Constitutional: General: She is not in acute distress. Appearance: She is not toxic-appearing. HENT: Head: Normocephalic. Nose: Nose normal. Eyes: Pupils: Pupils are equal, round, and reactive to light. Cardiovascular: Rate and Rhythm: Normal rate. Pulmonary: Effort: Pulmonary effort is normal. No respiratory distress. Musculoskeletal: Cervical back: Normal range of motion. Right ankle: No swelling, deformity, ecchymosis or lacerations. Tenderness present over the lateral malleolus. Normal range of motion. Right Achilles Tendon: No tenderness. Right foot: Normal range of motion and normal capillary refill. Bony tenderness present. No swelling, deformity or tenderness. Normal pulse. Feet: Comments: Neurovascular intact. No breaks in skin. Skin: General: Skin is warm and dry. Neurological: General: No focal deficit present. Mental Status: She is alert. ASSESSMENT/PLAN: 1. Foot pain, right - ICD9: 729.5, ICD10: M79.671 (primary diagnosis) - XR FOOT GENERAL 3V AP/LAT/OBL RIGHT - XR ANKLE GENERAL 3V AP/LAT/OBL RIGHT 2. Acute right ankle pain - ICD9: 719.47, 338.19, ICD10: M25.571 - XR FOOT GENERAL 3V AP/LAT/OBL RIGHT - XR ANKLE GENERAL 3V AP/LAT/OBL RIGHT FINDINGS: No new fractures or subluxations are noted. Stable appearance of the base of the second metatarsal. Calcaneal enthesophyte noted. The mortise and other joint spaces a (more content not included)... [facility] 05-04-2023 History of Presen t illness Narrative Images from the original note were not included. Subjective HPI Nontoxic-appearing female presents urgent care chief complaint right ankle and foot pain. Duration of symptoms 1 month. Associated symptoms right ankle foot pain. States possible fracture of base of second metatarsal in March of this year. Was placed in a boot. Referred to podiatry. Today with persistent discomfort. Most of pain is around heel area. No new injuries. No numbness no tingling. No decrease sensation. Denies any fever body aches chills productive cough chest pain shortness of breath pleuritic pain hemoptysis nausea vomiting abdominal pain change in bowel or bladder habits. Past medical history prescription medication use and allergies reviewed. .Patient presents with: right ankle and heel pain: X 1 month-cannot recall an injury this time PAST MEDICAL HISTORY Diagnosis Date Asthma with [...] every 6 hours as needed for nausea/vomiting. progesterone micronized (PROMETRIUM) 200 mg capsule magnesium oxide 200 mg magnesium tab Take 1 tablet by mouth daily at bedtime. atogepant (QULIPTA) 30 mg tablet Take by mouth. budesonide-formoterol (SYMBICORT) 160-4.5 mcg/actuation inhaler Inhale 2 Puffs as instructed. fremanezumab-vfrm (SpacebikiniOVY AUTOINJECTOR) 225 mg/1.5 mL auto-injector Inject 225 mg subcutaneously once every month. Do not shake. nystatin (MYCOSTATIN) powder Apply 1 application to affected area three times daily. megestrol (MEGACE) 40 mg tablet Take 40 mg by mouth once daily. TRELEGY ELLIPTA 100-62.5-25 mcg INHALE 1 PUFF DAILY with good oral care levothyroxine (SYNTHROID) 300 mcg tablet Take by mouth. Not taking acetaminophen(TYLENOL 325 MG TAB) apixaban (ELIQUIS) 5 mg tab(s) Take 5 mg by mouth once daily. benzonatate (TESSALON PERLES) 100 mg capsule Take 2 capsules by mouth three times daily as needed. (Patient not taking: Reported on 03/08/2023) guaiFENesin (MUCINEX FAST-MAX CHEST-CONGEST) 100 mg/5 mL syrup Take 20 mL by mouth every 4 hours as needed. (Patient not taking: Reported on 03/08/2023) No family history on file. Social History Tobacco Use Smoking status: Never Smokeless tobacco: Never Substance Use Topics Alcohol use: No Drug use: Never BP 132/84 Pulse 82 Temp 36.5 C (97.7 F) (Tympanic) Resp 18 Wt (!) 138.8 kg (306 lb) LMP (LMP Unknown) SpO2 100% Review of Systems Constitutional: Negative for chills, fever and malaise/fatigue. HENT: Negative for congestion, ear discharge, ear pain, sinus pain and sore throat. Eyes: Negative for blurred vision, pain, discharge and redness. Respiratory: Negative for cough, hemoptysis, sputum production, shortness of breath, wheezing and stridor. Cardiovascular: Negative for chest pain. Gastrointestinal: Negative for abdominal pain, diarrhea, nausea and vomiting. Musculoskeletal: Negative for myalgias. Skin: Negative for itching and rash. Neurological: Negative for dizziness and headaches. Objective Physical Exam Constitutional: General: She is not in acute distress. Appearance: She is not toxic-appearing. HENT: Head: Normocephalic. Nose: Nose normal. Eyes: Pupils: Pupils are equal, round, and reactive to light. Cardiovascular: Rate and Rhythm: Normal rate. Pulmonary: Effort: Pulmonary effort is normal. No respiratory distress. Musculoskeletal: Cervical back: Normal range of motion. Right ankle: No swelling, deformity, ecchymosis or lacerations. Tenderness present over the lateral malleolus. Normal range of motion. Right Achilles Tendon: No tenderness. Right foot: Normal range of motion and normal capillary refill. Bony tenderness present. No swelling, deformity or tenderness. Normal pulse. Feet: Comments: Neurovascular intact. No breaks in skin. Skin: General: Skin is warm and dry. Neurological: General: No focal deficit present. Mental Status: She is alert. ASSESSMENT/PLAN: 1. Foot pain, right - ICD9: 729.5, ICD10: M79.671 (primary diagnosis) - XR FOOT GENERAL 3V AP/LAT/OBL RIGHT - XR ANKLE GENERAL 3V AP/LAT/OBL RIGHT 2. Acute right ankle pain - ICD9: 719.47, 338.19, ICD10: M25.571 - XR FOOT GENERAL 3V AP/LAT/OBL RIGHT - XR ANKLE GENERAL 3V AP/LAT/OBL RIGHT FINDINGS: No new fractures or subluxations are noted. Stable appearance of the base of the second metatarsal. Calcaneal enthesophyte noted. The mortise and other joint spaces are well preserved. There is no ankle joint effusion. The mineralization of the bones is normal. There is bimalleolar mild soft tissue swelling. No acute findings noted on x-ray. Will resume wearing boot as prescribed previously. Follow-up with podiatry as discussed. Patient was educated on supportive therapies. Patient will follow up with primary care provider as needed. Patient was instructed to immediately proceed to emergency room for any new, worsening, or symptoms lasting longer than anticipated. The patient's clinical presentation is otherwise unremarkable at this time. Based on exam and clinical finding, the patient is stable for discharge. Plan of care was discussed with patient. Patient verbalizes understanding and agrees to plan of care. This note was generated using [employer] software. It may contain errors in wording, punctuation, or spelling. Isaac Valentine APRN.WRAPPING CLERK documented in this encounter [facility] 04-29-2023 Hospital Discharg e instructions Patient Education 04/29/2023 13:22:29 Back Pain (Acute or Chronic) Back Pain (Acute or Chronic) Back pain is one of the most common problems. The good news is that most people feel better in 1 to 2 weeks, and most of the rest in 1 to 2 months. Most people can remain active. People who have pain describe it differently not everyone is the same. The pain can be sharp, stabbing, shooting, aching, cramping or burning. Movement, standing, bending, lifting, sitting, or walking may worsen pain. It can be localized to one spot or area, or it can be more generalized. It can spread or radiate upwards, to the front, or go down your arms or legs (sciatica). It can cause muscle spasm. Most of the time, mechanical problems with the muscles or spine cause the pain. Mechanical problems are usually caused by an injury to the muscles or ligaments. While illness can cause back pain, it is usually not caused by a serious illness. Mechanical problems include: Physical activity such as sports, exercise, work, or normal activity Overexertion, lifting, pushing, pulling incorrectly or too aggressively Sudden twisting, bending, or stretching from an accident, or accidental movement Poor posture Stretching or moving wrong, without noticing pain at the time Poor coordination, lack of regular exercise (check with your doctor about this) Spinal disc disease or arthritis Stress Pain can also be related to , or illness like appendicitis, bladder or kidney infections, pelvic infections, and many other things. Acute back pain usually gets better in 1 to 2 weeks. Back pain related to disk disease, arthritis in the spinal joints or spinal stenosis (narrowing of the spinal canal) can become chronic and last for months or years. Unless you had a physical injury (for example, a car accident or fall) X-rays are usually not needed for the initial evaluation of back pain. If pain continues and does not respond to medical treatment, X-rays and other tests may be needed. Home care Try these home care recommendations: When in bed, try to find a position of comfort. A firm mattress is best. Try lying flat on your back with pillows under your knees. You can also try lying on your side with your knees bent up towards your chest and a pillow between your knees. At first, do not try to stretch out the sore spots. If there is a strain, it is not like the good soreness you get after exercising without an injury. In this case, stretching may make it worse. Don't sit for long periods, as in a long car ride or during other travel. This puts more stress on the lower back than standing or walking. During the first 24 to 72 hours after an acute injury or flare up of chronic back pain, apply an ice pack to the painful area for 20 minutes and then remove it for 20 minutes. Do this over a period of 60 to 90 minutes or several times a day. This will reduce swelling and pain. Wrap the ice pack in a thin towel or plastic to protect your skin. You can start with ice, then switch to heat. Heat (hot shower, hot bath, or heating pad) reduces pain and works well for muscle spasms. Heat can be applied to the painful area for 20 minutes then remove it for 20 minutes. Do this over a period of 60 to 90 minutes or several times a day. Do not sleep on a heating pad. It can lead to skin watson or tissue damage. You can alternate ice and heat therapy. Talk with your doctor about the best treatment for your back pain. Therapeutic massage can help relax the back muscles without stretching them. Be aware of safe lifting methods and do not lift anything without stretching first. Medicines Talk to your doctor before using medicine, especially if you have other medical problems or are taking other medicines. You may use [id number] medicine as directed on the bottle to control pain, unless another pain medicine was prescribed. If you have chronic conditions like diabetes, liver or kidney disease, stomach ulcers, or gastrointestinal bleeding, or are taking blood thinners, talk to your doctor before taking any medicine. Be careful if you are given a prescription medicines, narcotics, or medicine for muscle spasms. They can cause drowsiness, affect your coordination, reflexes, and judgement. Do not drive or operate heavy machinery. Follow-up care Follow up with your healthcare provider, or as advised. A radiologist will review any X-rays that were taken. Your provide will notify you of any new findings that may affect your care. Call 911 Call 911 if any of the following occur: Trouble breathing Confusion Very drowsy or trouble awakening Fainting or loss of consciousness Rapid or very slow heart rate Loss of bowel or bladder control When to seek medical advice Call your healthcare provider right away if any of these occur: Pain becomes worse or spreads to your legs Weakness or numbness in one or both legs Numbness in the groin or genital area [phone] [employer]. [address] [place] [address], [place] [address]. All rights reserved. This information is not intended as a substitute for professional medical care. Always follow your healthcare professional's instructions. Follow Up Care 04/29/2023 10:31:19 With:ARAM JOHNSON DO Address: [address] [place] [phone] When:2-4 days [facility] 04-29-2023 Note Discharge Instructions Thank you for allowing [facility] to assist you with your healthcare needs. The following is important discharge information regarding your hospital visit. Diagnosis from Today's Visit Back pain Back pain What to Do Next Instructions from Your Care Team No qualifying data available. Post Acute Orders No qualifying data available. You Need to Schedule the Following Appointments Follow Up with ARAM JOHNSON DO When Within 2-4 days Where: [facility] [place] [address]- [phone] Allergies Naprosyn (Nausea) aspirin (NAUSEA) naproxen Medications Please ask your primary doctor or [...] needed for as needed for pain Unchanged amLODIPine (amLODIPine 10 mg oral tablet) 1 tab(s) by mouth Once a day Duration: 30 Days Unchanged apixaban (Eliquis 5 mg oral tablet) 1 tab(s) by mouth Two (2) times a day Unchanged atogepant (Qulipta 60 mg oral tablet) 1 tab(s) by mouth Once a day Unchanged citalopram (CeleXA 40 mg oral tablet) 1 tab(s) by mouth Once a day Anxiety and depression Duration: 30 Days Unchanged cyclobenzaprine (cyclobenzaprine 5 mg oral tablet) 1 tab(s) by mouth Three (3) times a day Duration: 10 Days Unchanged fluticasone/ umeclidinium/ vilanterol (Trelegy Ellipta 100 mcg-62.5 mcg-25 mcg/ inh inhalation powder) 1 puff(s) by inhalation Once a day Asthma in adult Duration: 90 Days Managed by Pulmonology Unchanged gabapentin (gabapentin 100 mg oral capsule) 1 cap by mouth Three (3) times a day TAKE 1 CAPSULE BY MOUTH THREE TIMES DAILY Unchanged galcanezumab (Emgality Prefilled Pen 120 mg/ mL subcutaneous solution) Inject 120 mg every month by subcutaneous route. Unchanged levothyroxine (levothyroxine 200 mcg (0.2 mg) oral tablet) 1 tab(s) by mouth Once a day Unchanged mupirocin topical (mupirocin 2% topical ointment) USE 1 Application two times daily DIRECTED Unchanged nortriptyline (nortriptyline 50 mg oral capsule) 1 cap by mouth Daily at bedtime Unchanged polyethylene glycol 3350 (TWA2105 oral powder for reconstitution) 17 gram(s) by mouth Every day Unchanged potassium chloride (potassium chloride 10 mEq oral capsule, extended release) Unchanged progesterone (progesterone 200 mg oral capsule) 400 Milligram by mouth Daily at bedtime Unchanged rimegepant [...] oral tablet) 1 tab(s) by mouth Every 12 hours as needed for for pain Unchanged ubrogepant (Ubrelvy 100 mg oral tablet) [...] medication providers or retail pharmacies. Education Materials Back Pain (Acute or Chronic) Back pain is one of the most common problems. The good news is that most people feel better in 1 to 2 weeks, and most of the rest in 1 to 2 months. Most people can remain active. People who have pain describe it differently not everyone is the same. The pain can be sharp, stabbing, shooting, aching, cramping or burning. Movement, standing, bending, lifting, sitting, or walking may worsen pain. It can be localized to one spot or area, or it can be more generalized. It can spread or radiate upwards, to the front, or go down your arms or legs (sciatica). It can cause muscle spasm. Most of the time, mechanical problems with the muscles or spine cause the pain. Mechanical problems are usually caused by an injury to the muscles or ligaments. While illness can cause back pain, it is usually not caused by a serious illness. Mechanical problems include: Physical activity such as sports, exercise, work, or normal activity Overexertion, lifting, pushing, pulling incorrectly or too aggressively Sudden twisting, bending, or stretching from an accident, or accidental movement Poor posture Stretching or moving wrong, without noticing pain at the time Poor coordination, lack of regular exercise (check with your doctor about this) Spinal disc disease or arthritis Stress Pain can also be related to , or illness like appendicitis, bladder or kidney infections, pelvic infections, and many other things. Acute back pain usually gets better in 1 to 2 weeks. Back pain related to disk disease, arthritis in the spinal joints or spinal stenosis (narrowing of the spinal canal) can become chronic and last for months or years. Unless you had a physical injury (for example, a car accident or fall) X-rays are usually not needed for the initial evaluation of back pain. If pain continues and does not respond to medical treatment, X-rays and other tests may be needed. Home care Try these home care recommendations: When in bed, try to find a position of comfort. A firm mattress is best. Try lying flat on your back with pillows under your knees. You can also try lying on your side with your knees bent up towards your chest and a pillow between your knees. At first, do not try to stretch out the sore spots. If there is a strain, it is not like the good soreness you get after exercising without an injury. In this case, stretching may make it worse. Don't sit for long periods, as in a long car ride or during other travel. This puts more stress on the lower back than standing or walking. During the first 24 to 72 hours after an acute injury or flare up of chronic back pain, apply an ice pack to the painful area for 20 minutes and then remove it for 20 minutes. Do this over a period of 60 to 90 minutes or several times a day. This will reduce swelling and pain. Wrap the ice pack in a thin towel or plastic to protect your skin. You can start with ice, then switch to heat. Heat (hot shower, hot bath, or heating pad) reduces pain and works well for muscle spasms. Heat can be applied to the painful area for 20 minutes then remove it for 20 minutes. Do this over a period of 60 to 90 minutes or several times a day. Do not sleep on a heating pad. It can lead to skin watson or tissue damage. You can alternate ice and heat therapy. Talk with your doctor about the best treatment for your back pain. Therapeutic massage can help relax the back muscles without stretching them. Be aware of safe lifting methods and do not lift anything without stretching first. Medicines Talk to your doctor before using medicine, especially if you have other medical problems or are taking other medicines. You may use kfwa-hht-cwmoput medicine as directed on the bottle to control pain, unless another pain medicine was prescribed. If you have chronic conditions like diabetes, liver or kidney disease, stomach ulcers, or gastrointestinal bleeding, or are taking blood thinners, talk to your doctor before taking any medicine. Be careful if you are given a prescription medicines, narcotics, or medicine for muscle spasms. They can cause drowsiness, affect your coordination, reflexes, and judgement. Do not drive or operate heavy machinery. Follow-up care Follow up with your healthcare provider, or as advised. A radiologist will review any X-rays that were taken. Your provide will notify you of any new findings that may affect your care. Call 911 Call 911 if any of the following occur: Trouble breathing Confusion Very drowsy or trouble awakening Fainting or loss of consciousness Rapid or very slow heart rate Loss of bowel or bladder control When to seek medical advice Call your healthcare provider right away if any of these occur: Pain becomes worse or spreads to your legs Weakness or numbness in one or both legs Numbness in the groin or genital area [id number] [employer]. [address] [place] [address], [place] [address]. All rights reserved. This information is not intended as a substitute for professional medical care. Always follow your healthcare professional's instructions. Additional Information VACCINATE! IT SAVES LIVES! Members of the community who have not yet received the COVID-19 vaccine and would like to receive it can visit one of [facility] vaccine clinics. There are many vaccine clinic locations within the [facility]. For locations and available times, please visit [email or web address] [email or web address] It is important to note that some COVID mobile vaccine clinics are held outdoors and may be canceled in rainy or stormy conditions. To learn more about pediatric vaccinations (ages 5-11), we invite you to visit the [facility] webpage. [email or web address] To learn more about the COVID-19 vaccine, we invite you to visit the CDC website for a list of frequently asked questions. https://www.cdc.gov/coronavirus/ 2019-ncov/vaccines/faq.html [facility] Patient Portal Access Instructions: Stay connected with your healthcare team and access your personal medical information anytime with the [facility] Patient Portal. If you would like a full copy of your medical records please contact the [facility] Medical Records Department Tuesday through Tuesday between 8a.m. and 4:30p.m. Please follow the directions below to access the portal: 1.Access the email account you provided upon registration to the hospital.2.Look for an invitation email from [facility].3.Open the email and access the invitation link: Accept Invitation to [facility]4.Fill in the required lee to create your account. Sign into [email or web address] with your username and password that you [...] you will allow to register on the [facility] Patient Portal for access to your information. You can also access the [facility] Patient Portal on the [employer]. Simply click on Health Records under Health Data and then click on the [employer] logo. HOW TO SAFELY DISPOSE OF PRESCRIPTION [...] Call your local pharmacy or go to [email or web address].Favor/7G8Tu3t to find one close to you.3.Make use of household items: Use cat litter or old coffee grounds to dispose medications if other options are not available. Mix your drugs with these household products, seal them in an airtight container and throw it into the garbage. Call [facility]: [phone] to be sure your drugs can be [...] a CHART COPY Signatures Patient Education Materials Back Pain (Acute or Chronic) Medication Leaflets My discharge plan and instructions have been reviewed and explained to me and ISAAC Nagel APRIL L understand my current condition and have read and understand these discharge instructions. I have received a written copy of the plan/instructions. If I have questions, I am aware that I should contact my doctor. Patient/Charrer Signature: Date/Time: Relationship to Patient: Witness Name/Signature: Date/Time: [facility] 04-29-2023 Note ORIGINAL HISTORY: Chest pain COMPARISON: 9 days previously FINDINGS: The lungs are clear. The pulmonary vasculature is unremarkable in appearance. IMPRESSION: Clear lungs. Interpreted by: Torsten Pena MD Preliminary Report By: Torsten Pena MD Electronically signed By Torsten Pena MD Dictated Date: 04/29/2023 12:40:59 PM Prelim Date: 04/29/2023 12:41:22 PM Sign Date: 04/29/2023 12:41:22 PM Ordering Provider: LAURA RICHARDSON [facility] 04-29-2023 Note Sinus rhythm RSR' in V1 or V2, probably normal variant Nonspecific T abnormalities, diffuse leads Prolonged QT interval Electronic Signature: LAURA RICHARDSON MD 04/29/2023 11:19:22 [facility] 04-25-2023 Miscellaneous Notes CD READY FOR [facility] Pt is aware Pt came in and would like a disk with her xray from 04/15/2023 (express care patient) put on it. If she can get by Tuesday. documented in this encounter [facility] 04-21-2023 Hospital Discharg e instructions Patient Education 04/21/2023 15:42:19 Shortness of Breath (Dyspnea) Shortness of Breath (Dyspnea) Shortness of breath is the feeling that you can't catch your breath or get enough air. It is also known as dyspnea. Dyspnea can be caused by many different conditions. They include: Acute asthma attack Worsening of chronic lung diseases such as chronic bronchitis and emphysema Heart failure. This is when weak heart muscle allows extra fluid to collect in the lungs. Panic attacks or anxiety. Fear can cause rapid breathing (hyperventilation). Pneumonia, or an infection in the lung tissue Exposure to toxic substances, fumes, smoke, or certain medicines Blood clot in the lung (pulmonary embolism). This is often from a piece of blood clot in a deep vein of the leg (deep vein thrombosis) that breaks off and travels to the lungs. Heart attack or heart-related chest pain (angina) Anemia Collapsed lung (pneumothorax) Dehydration Based on your visit today, the exact cause of your shortness of breath is not certain. Your tests don t show any of the serious causes of dyspnea. You may need other tests to find out if you have a serious problem. It s important to watch for any new symptoms or symptoms that get worse. Follow up with your healthcare provider as directed. Home care Follow these tips to take care of yourself at home: When your symptoms are better, go back to your usual activities. If you smoke, you should stop. Join a quit-smoking program or ask your healthcare provider for help. Eat a healthy diet and get plenty of sleep. Get regular exercise. Talk with your healthcare provider before starting to exercise, especially if you have other medical problems. Cut down on the amount of caffeine and stimulants you consume. Follow-up care Follow up with your healthcare provider, or as advised. If tests were done, you will be told if your treatment needs to be changed. You can call as directed for the results. If an X-ray was taken, a specialist will review it. You will be notified of any new findings that may affect your care. Call 911 Shortness of breath may be a sign of a serious medical problem. For example, it may be a problem with your heart or lungs. Call 911 if you have worsening shortness of breath or trouble breathing, especially with any of the symptoms below: Confusion or difficulty waking Fainting or loss of consciousness. Fast or irregular heartbeat Coughing up blood Pain in your chest, arm, shoulder, neck, or upper back Sweating When to seek medical advice Call your healthcare provider right away if any of these occur: Slight shortness of breath or wheezing Redness, pain or swelling in your leg, arm, or other body area Swelling in both legs or ankles Fast weight gain Dizziness or weakness Fever of 100.4 F (38 C) or higher, or as directed by your healthcare provider [id number] [employer]. [address] [place] [address]. All rights reserved. This information is not intended as a substitute for professional medical care. Always follow your healthcare professional's instructions. Follow Up Care 04/21/2023 11:39:12 With:ARAM JOHNSON DO Address: [address] [place] [phone] When:2-4 days [facility] 04-21-2023 Note Discharge Instructions Thank you for allowing [facility] to assist you with your healthcare needs. The following is important discharge information regarding your hospital visit. Diagnosis from Today's Visit Dyspnea SOB - Shortness of breath What to Do Next Instructions from Your Care Team No qualifying data available. Post Acute Orders No qualifying data available. You Need to Schedule the Following Appointments Follow Up with ARAM JOHNSON DO When Within 2-4 days Where: [address] [place] [phone] Allergies Naprosyn (Nausea) aspirin (NAUSEA) naproxen Medications Please ask your primary doctor or [...] for as needed for pain Unchanged acetaminophen-hydrocodone ([place] 325- 5 mg oral tablet) 1 tab(s) [...] Once a day Duration: 30 Days Unchanged atogepant (Qulipta 60 mg oral tablet) 1 tab(s) by mouth Once a day Unchanged citalopram (CeleXA 40 mg oral tablet) 1 tab(s) by mouth Once a day Anxiety and depression Duration: 30 Days Unchanged fluticasone/ umeclidinium/ vilanterol (Trelegy Ellipta 100 mcg-62.5 mcg-25 mcg/ inh inhalation powder) 1 puff(s) by inhalation Once a day Asthma in adult Duration: 90 Days Managed by Pulmonology Unchanged gabapentin (gabapentin 100 mg oral capsule) 1 cap by mouth Three (3) times a day TAKE 1 CAPSULE BY MOUTH THREE TIMES DAILY Unchanged galcanezumab (Emgality Prefilled Pen 120 mg/ mL subcutaneous solution) Inject 120 mg every month by subcutaneous route. Unchanged levothyroxine (levothyroxine 175 mcg (0.175 mg) oral tablet) 1 tab(s) by mouth Once a day before a meal Unchanged mupirocin topical (mupirocin 2% topical ointment) USE 1 Application two times daily DIRECTED Unchanged nortriptyline (nortriptyline 50 mg oral capsule) 1 cap by mouth Daily at bedtime Unchanged ondansetron (Zofran 4 mg oral tablet) 1 tab(s) by mouth Every 6 hours as needed for Nausea/Vomiting Unchanged progesterone (progesterone 200 mg oral capsule) 400 Milligram by mouth Daily at bedtime Unchanged rimegepant [...] medication providers or retail pharmacies. Education Materials Shortness of Breath (Dyspnea) Shortness of breath is the feeling that you can't catch your breath or get enough air. It is also known as dyspnea. Dyspnea can be caused by many different conditions. They include: Acute asthma attack Worsening of chronic lung diseases such as chronic bronchitis and emphysema Heart failure. This is when weak heart muscle allows extra fluid to collect in the lungs. Panic attacks or anxiety. Fear can cause rapid breathing (hyperventilation). Pneumonia, or an infection in the lung tissue Exposure to toxic substances, fumes, smoke, or certain medicines Blood clot in the lung (pulmonary embolism). This is often from a piece of blood clot in a deep vein of the leg (deep vein thrombosis) that breaks off and travels to the lungs. Heart attack or heart-related chest pain (angina) Anemia Collapsed lung (pneumothorax) Dehydration Based on your visit today, the exact cause of your shortness of breath is not certain. Your tests don t show any of the serious causes of dyspnea. You may need other tests to find out if you have a serious problem. It s important to watch for any new symptoms or symptoms that get worse. Follow up with your healthcare provider as directed. Home care Follow these tips to take care of yourself at home: When your symptoms are better, go back to your usual activities. If you smoke, you should stop. Join a quit-smoking program or ask your healthcare provider for help. Eat a healthy diet and get plenty of sleep. Get regular exercise. Talk with your healthcare provider before starting to exercise, especially if you have other medical problems. Cut down on the amount of caffeine and stimulants you consume. Follow-up care Follow up with your healthcare provider, or as advised. If tests were done, you will be told if your treatment needs to be changed. You can call as directed for the results. If an X-ray was taken, a specialist will review it. You will be notified of any new findings that may affect your care. Call 911 Shortness of breath may be a sign of a serious medical problem. For example, it may be a problem with your heart or lungs. Call 911 if you have worsening shortness of breath or trouble breathing, especially with any of the symptoms below: Confusion or difficulty waking Fainting or loss of consciousness. Fast or irregular heartbeat Coughing up blood Pain in your chest, arm, shoulder, neck, or upper back Sweating When to seek medical advice Call your healthcare provider right away if any of these occur: Slight shortness of breath or wheezing Redness, pain or swelling in your leg, arm, or other body area Swelling in both legs or ankles Fast weight gain Dizziness or weakness Fever of 100.4 F (38 C) or higher, or as directed by your healthcare provider [id number] [employer]. [address] [place] [address]. All rights reserved. This information is not intended as a substitute for professional medical care. Always follow your healthcare professional's instructions. Additional Information VACCINATE! IT SAVES LIVES! Members of the community who have not yet received the COVID-19 vaccine and would like to receive it can visit one of [facility] vaccine clinics. There are many vaccine clinic locations within the [facility]. For locations and available times, please visit [email or web address] It is important to note that some COVID mobile vaccine clinics are held outdoors and may be canceled in rainy or stormy conditions. To learn more about pediatric vaccinations (ages 5-11), we invite you to visit the [facility] webpage. [email or web address]/p [email or web address]-Epqgqbsgiwk-Freq ibhyfz-[email or web address]-[email or web address] To learn more about the COVID-19 vaccine, we invite you to visit the CDC website for a list of frequently asked questions. https://www.cdc.gov/coronavirus/ 2019-ncov/vaccines/faq.html [facility] Patient Portal Access Instructions: Stay connected with your healthcare team and access your personal medical information anytime with the [facility] Patient Portal. If you would like a full copy of your medical records please contact the [facility] Medical Records Department Tuesday through Dinh between 8a.m. and 4:30p.m. Please follow the directions below to access the portal: 1.Access the email account you provided upon registration to the [facility].2.Look for an invitation email from [facility].3.Open the email and access the invitation link: Accept Invitation to [facility]4.Fill in the required lee to create your [...] you will allow to register on the [facility] Patient Portal for access to your information. You can also access the [facility] Patient Portal on the [employer]. Simply click on Health Records under Health Data and then click on the [employer] logo. HOW TO SAFELY DISPOSE OF PRESCRIPTION [...] Call your local pharmacy or go to [email or web address].[email or web address] to find one close to you.3.Make use of household items: Use cat litter or old coffee grounds to dispose medications if other options are not available. Mix your drugs with these household products, seal them in an airtight container and throw it into the garbage. Call [facility]: [phone] to be sure your drugs can be [...] a CHART COPY Signatures Patient Education Materials Shortness of Breath (Dyspnea) Medication Leaflets My discharge plan and instructions have been reviewed and explained to me and I,KAMALA GRAY L understand my current condition and have read and understand these discharge instructions. I have received a written copy of the plan/instructions. If I have questions, I am aware that I should contact my doctor. Patient/Charrer Signature: Date/Time: Relationship to Patient: Witness Name/Signature: Date/Time: [facility] 04-21-2023 Note ORIGINAL EXAMINATION: CTA OF THE CHEST 04/21/2023 3:13 pm TECHNIQUE: CTA of the chest was performed after the administration of intravenous contrast. Multiplanar reformatted images are provided for review. MIP images are provided for review. Automated exposure control, iterative reconstruction, and/or weight based adjustment of the mA/kV was utilized to reduce the radiation dose to as low as reasonably achievable. COMPARISON: March 28, 2023 HISTORY: ORDERING SYSTEM PROVIDED HISTORY: Reason for Exam: dyspnea FINDINGS: Minor degenerative changes are noted in the spine. No focal pulmonary consolidation is identified. No pleural fluid seen. No mediastinal adenopathy is evident. Segmental right lower lobe pulmonary artery defect is evident in several areas, although the finding appears slightly improved since the previous exam. Previously seen right upper lobe involvement is no longer visible. There is still segmental left lower lobe pulmonary embolism present, although this finding is also slightly improved since the prior exam. There are no new pulmonary emboli identified, and there are no definite indicators of right heart strain. No other significant interval change. IMPRESSION: Improvement but incomplete resolution of pulmonary emboli since the previous exam. No new emboli are evident, and there is no evidence for right heart strain. Interpreted by: Wes Garcia MD Preliminary Report By: Wes Garcia MD Electronically signed By Wes Garcia MD Dictated Date: 04/21/2023 3:30:55 PM Prelim Date: 04/21/2023 3:35:07 PM Sign Date: 04/21/2023 3:35:07 PM Ordering Provider: ILANA MORGAN [facility] 04-21-2023 Note Sinus rhythm Borderline left axis deviation Low voltage, precordial leads Nonspecific T abnrm, anterolateral leads Prolonged QT interval Compared to ECG at 04/20/2023 11:31:44 BORDERLINE ECG Electronic Signature: ILANA MORGAN DO 04/21/2023 13:05:42 [facility] 04-20-2023 Hospital Discharg e instructions Patient Education 04/20/2023 15:09:44 Chest Pain, Noncardiac Noncardiac Chest Pain Based on your visit today, the healthcare provider doesn t know what is causing your chest pain. In most cases, people who come to the emergency department with chest pain don t have a problem with their heart. Instead, the pain is caused by other conditions. It's important for the healthcare team to be sure you are not having a life threatening cause for chest pain such as a heart attack, blood clot in the lungs, collapsed lung, ruptured esophagus, or tearing of the aorta. Once these major causes have been ruled out, you may have further evaluation for non-heart causes of chest pain. These may be problems with the lungs, muscles, bones, digestive tract, nerves, or mental health. Lung problems Inflammation around the lungs (pleurisy) Collapsed lung (pneumothorax) Fluid around the lungs (pleural effusion) Lung cancer (a rare cause of chest pain) Muscle or bone problems Inflamed cartilage between the ribs (costochondritis) Fibromyalgia Rheumatoid arthritis Chest wall strain Digestive system problems Reflux Stomach ulcer Spasms of the esophagus Gall stones Gallbladder inflammation Mental health conditions Panic or anxiety attacks Emotional distress Your condition doesn t seem serious and your pain doesn t appear to be coming from your heart. But sometimes the signs of a serious problem take more time to appear. Watch for the warning signs listed below. Home care Follow these guidelines when caring for yourself at home: Rest today and avoid strenuous activity. Take any prescribed medicine as directed. Follow-up care Follow up with your healthcare provider, or as advised, if you don t start to feel better within 24 hours. When to seek medical advice Call your healthcare provider right away if any of these occur: A change in the type of pain. Call if it feels different, becomes more serious, lasts longer, or begins to spread into your shoulder, arm, neck, jaw, or back. Shortness of breath You feel more pain when you breathe Cough with dark-colored mucus or blood Weakness, dizziness, or fainting Fever of 100.4 F (38 C) or higher, or as directed by your healthcare provider Swelling, pain, or redness in one leg [id number] [employer] [place] [address]. All rights reserved. This information is not intended as a substitute for professional medical care. Always follow your healthcare professional's instructions. 04/20/2023 15:09:40 Chest Pain, Noncardiac Noncardiac Chest Pain Based on your visit today, the healthcare provider doesn t know what is causing your chest pain. In most cases, people who come to the emergency department with chest pain don t have a problem with their heart. Instead, the pain is caused by other conditions. It's important for the healthcare team to be sure you are not having a life threatening cause for chest pain such as a heart attack, blood clot in the lungs, collapsed lung, ruptured esophagus, or tearing of the aorta. Once these major causes have been ruled out, you may have further evaluation for non-heart causes of chest pain. These may be problems with the lungs, muscles, bones, digestive tract, nerves, or mental health. Lung problems Inflammation around the lungs (pleurisy) Collapsed lung (pneumothorax) Fluid around the lungs (pleural effusion) Lung cancer (a rare cause of chest pain) Muscle or bone problems Inflamed cartilage between the ribs (costochondritis) Fibromyalgia Rheumatoid arthritis Chest wall strain Digestive system problems Reflux Stomach ulcer Spasms of the esophagus Gall stones Gallbladder inflammation Mental health conditions Panic or anxiety attacks Emotional distress Your condition doesn t seem serious and your pain doesn t appear to be coming from your heart. But sometimes the signs of a serious problem take more time to appear. Watch for the warning signs listed below. Home care Follow these guidelines when caring for yourself at home: Rest today and avoid strenuous activity. Take any prescribed medicine as directed. Follow-up care Follow up with your healthcare provider, or as advised, if you don t start to feel better within 24 hours. When to seek medical advice Call your healthcare provider right away if any of these occur: A change in the type of pain. Call if it feels different, becomes more serious, lasts longer, or begins to spread into your shoulder, arm, neck, jaw, or back. Shortness of breath You feel more pain when you breathe Cough with dark-colored mucus or blood Weakness, dizziness, or fainting Fever of 100.4 F (38 C) or higher, or as directed by your healthcare provider Swelling, pain, or redness in one leg [id number] [employer] [place] [address]. All rights reserved. This information is not intended as a substitute for professional medical care. Always follow your healthcare professional's instructions. Follow Up Care 04/20/2023 11:09:08 With:ARAM JOHNSON DO Address: [address] [place] [address]- [phone] When:2-4 days [facility] 04-20-2023 Emergency department Discharge summary Discharge Instructions Thank you for allowing [facility] to assist you with your healthcare needs. The following is important discharge information regarding your hospital visit. Diagnosis from Today's Visit Chest cold Chest pain Headache What to Do Next Instructions from Your Care Team No qualifying data available. Post Acute Orders No qualifying data available. You Need to Schedule the Following Appointments Follow Up with ARAM JOHNSON DO When Within 2-4 days Where: [address] [place] [phone] [phone] Allergies Naprosyn (Nausea) aspirin (NAUSEA) naproxen Medications Please ask your primary doctor or [...] for as needed for pain Unchanged acetaminophen-hydrocodone ([place] 325- 5 mg oral tablet) 1 tab(s) [...] Once a day Duration: 30 Days Unchanged atogepant (Qulipta 60 mg oral tablet) 1 tab(s) by mouth Once a day Unchanged citalopram (CeleXA 40 mg oral tablet) 1 tab(s) by mouth Once a day Anxiety and depression Duration: 30 Days Unchanged fluticasone/ umeclidinium/ vilanterol (Trelegy Ellipta 100 mcg-62.5 mcg-25 mcg/ inh inhalation powder) 1 puff(s) by inhalation Once a day Asthma in adult Duration: 90 Days Managed by Pulmonology Unchanged gabapentin (gabapentin 100 mg oral capsule) 1 cap by mouth Three (3) times a day TAKE 1 CAPSULE BY MOUTH THREE TIMES DAILY Unchanged galcanezumab (Emgality Prefilled Pen 120 mg/ mL subcutaneous solution) Inject 120 mg every month by subcutaneous route. Unchanged levothyroxine (levothyroxine 175 mcg (0.175 mg) oral tablet) 1 tab(s) by mouth Once a day before a meal Unchanged mupirocin topical (mupirocin 2% topical ointment) USE 1 Application two times daily DIRECTED Unchanged nortriptyline (nortriptyline 50 mg oral capsule) 1 cap by mouth Daily at bedtime Unchanged ondansetron (Zofran 4 mg oral tablet) 1 tab(s) by mouth Every 6 hours as needed for Nausea/Vomiting Unchanged progesterone (progesterone 200 mg oral capsule) 400 Milligram by mouth Daily at bedtime Unchanged rimegepant [...] medication providers or retail pharmacies. Education Materials Noncardiac Chest Pain Based on your visit today, the healthcare provider doesn t know what is causing your chest pain. In most cases, people who come to the emergency department with chest pain don t have a problem with their heart. Instead, the pain is caused by other conditions. It's important for the healthcare team to be sure you are not having a life threatening cause for chest pain such as a heart attack, blood clot in the lungs, collapsed lung, ruptured esophagus, or tearing of the aorta. Once these major causes have been ruled out, you may have further evaluation for non-heart causes of chest pain. These may be problems with the lungs, muscles, bones, digestive tract, nerves, or mental health. Lung problems Inflammation around the lungs (pleurisy) Collapsed lung (pneumothorax) Fluid around the lungs (pleural effusion) Lung cancer (a rare cause of chest pain) Muscle or bone problems Inflamed cartilage between the ribs (costochondritis) Fibromyalgia Rheumatoid arthritis Chest wall strain Digestive system problems Reflux Stomach ulcer Spasms of the esophagus Gall stones Gallbladder inflammation Mental health conditions Panic or anxiety attacks Emotional distress Your condition doesn t seem serious and your pain doesn t appear to be coming from your heart. But sometimes the signs of a serious problem take more time to appear. Watch for the warning signs listed below. Home care Follow these guidelines when caring for yourself at home: Rest today and avoid strenuous activity. Take any prescribed medicine as directed. Follow-up care Follow up with your healthcare provider, or as advised, if you don t start to feel better within 24 hours. When to seek medical advice Call your healthcare provider right away if any of these occur: A change in the type of pain. Call if it feels different, becomes more serious, lasts longer, or begins to spread into your shoulder, arm, neck, jaw, or back. Shortness of breath You feel more pain when you breathe Cough with dark-colored mucus or blood Weakness, dizziness, or fainting Fever of 100.4 F (38 C) or higher, or as directed by your healthcare provider Swelling, pain, or redness in one leg [phone] [employer]. [address] [place] [address]. All rights reserved. This information is not intended as a substitute for professional medical care. Always follow your healthcare professional's instructions. Noncardiac Chest Pain Based on your visit today, the healthcare provider doesn t know what is causing your chest pain. In most cases, people who come to the emergency department with chest pain don t have a problem with their heart. Instead, the pain is caused by other conditions. It's important for the healthcare team to be sure you are not having a life threatening cause for chest pain such as a heart attack, blood clot in the lungs, collapsed lung, ruptured esophagus, or tearing of the aorta. Once these major causes have been ruled out, you may have further evaluation for non-heart causes of chest pain. These may be problems with the lungs, muscles, bones, digestive tract, nerves, or mental health. Lung problems Inflammation around the lungs (pleurisy) Collapsed lung (pneumothorax) Fluid around the lungs (pleural effusion) Lung cancer (a rare cause of chest pain) Muscle or bone problems Inflamed cartilage between the ribs (costochondritis) Fibromyalgia Rheumatoid arthritis Chest wall strain Digestive system problems Reflux Stomach ulcer Spasms of the esophagus Gall stones Gallbladder inflammation Mental health conditions Panic or anxiety attacks Emotional distress Your condition doesn t seem serious and your pain doesn t appear to be coming from your heart. But sometimes the signs of a serious problem take more time to appear. Watch for the warning signs listed below. Home care Follow these guidelines when caring for yourself at home: Rest today and avoid strenuous activity. Take any prescribed medicine as directed. Follow-up care Follow up with your healthcare provider, or as advised, if you don t start to feel better within 24 hours. When to seek medical advice Call your healthcare provider right away if any of these occur: A change in the type of pain. Call if it feels different, becomes more serious, lasts longer, or begins to spread into your shoulder, arm, neck, jaw, or back. Shortness of breath You feel more pain when you breathe Cough with dark-colored mucus or blood Weakness, dizziness, or fainting Fever of 100.4 F (38 C) or higher, or as directed by your healthcare provider Swelling, pain, or redness in one leg [id number] [employer]. [address] [place] [address]. All rights reserved. This information is not intended as a substitute for professional medical care. Always follow your healthcare professional's instructions. Additional Information VACCINATE! IT SAVES LIVES! Members of the community who have not yet received the COVID-19 vaccine and would like to receive it can visit one of [facility] vaccine clinics. There are many vaccine clinic locations within the [facility]. For locations and available times, please visit [email or web address] It is important to note that some COVID mobile vaccine clinics are held outdoors and may be canceled in rainy or stormy conditions. To learn more about pediatric vaccinations (ages 5-11), we invite you to visit the [facility] webpage. [email or web address] To learn more about the COVID-19 vaccine, we invite you to visit the CDC website for a list of frequently asked questions. https://www.cdc.gov/coronavirus/ 2019-ncov/vaccines/faq.html [facility] Patient Portal Access Instructions: Stay connected with your healthcare team and access your personal medical information anytime with the [facility] Patient Portal. If you would like a full copy of your medical records please contact the [facility] Medical Records Department Tuesday through Tuesday between 8a.m. and 4:30p.m. Please follow the directions below to access the portal: 1.Access the email account you provided upon registration to the [facility].2.Look for an invitation email from [facility].3.Open the email and access the invitation link: Accept Invitation to [facility]4.Fill in the required lee to create your [...] you will allow to register on the [facility] Patient Portal for access to your information. You can also access the [facility] Patient Portal on the [employer] leigh. Simply click on Health Records under [...] Call your local pharmacy or go to [email or web address] to find one close to you.3.Make use of household items: Use cat litter or old coffee grounds to dispose medications if other options are not available. Mix your drugs with these household products, seal them in an airtight container and throw it into the garbage. Call [facility]: [phone] to be sure your drugs can be [...] COPY Signatures Patient Education Materials Chest Pain, Noncardiac Chest Pain, Noncardiac Medication Leaflets My discharge plan and instructions have been reviewed and explained to me and I,KAMALA GRAY understand my current condition and have read and understand these discharge instructions. I have received a written copy of the plan/instructions. If I have questions, I am aware that I should contact my doctor. Patient/Charrer Signature: Date/Time: Relationship to Patient: Witness Name/Signature: Date/Time: [facility] 04-20-2023 Note ORIGINAL EXAMINATION: ONE XRAY VIEW OF THE CHEST04/20/2023 1:13 pm COMPARISON: 04/03/2023. HISTORY: ORDERING SYSTEM PROVIDED HISTORY: Reason for Exam: chest pain FINDINGS: The cardiomediastinal contours are normal. Vascular structures appear within normal limits. There is no consolidation. No pleural fluid or pneumothorax. No aggressive osseous lesions identified. IMPRESSION: No acute radiographic findings. Interpreted by: Kevyn Joe Preliminary Report By: Kevyn Joe Electronically signed By Kevyn Joe Dictated Date: 04/20/2023 1:19:04 PM Prelim Date: 04/20/2023 1:19:22 PM Sign Date: 04/20/2023 1:19:22 PM Ordering Provider: DAQUAN MAI [facility] 04-20-2023 Note Sinus rhythm Borderline T abnormalities, diffuse leads Prolonged QT interval Electronic Signature: VANI PEÑA MD 04/20/2023 21:41:10 [facility] 04-15-2023 Note HNO ID: [id number] Author: SATNAM RODRIGUEZ APRN.WRAPPING CLERK Service: ? Author Type: Nurse Practitioner Type: Progress Notes Filed: 04/15/2023 18:42 Note Text: Subjective HPI HPI Kamala Gray is a 52 year old female who presents today for CC of fall few weeks ago, hurt right lower extremity. Was seen in ER for head/neck, never examined right lower extremity. Has tried otc medication for relief. Symptoms are worsened by rom/walking. Denies diabetes. .Patient presents with: Trauma: RLE swelling pain and un healing wound x 3 weeks PAST MEDICAL HISTORY Diagnosis Date Asthma with COPD Celiac disease CKD (chronic kidney disease) Diabetes mellitus type 2 (HCC) Gout Hyperlipidemia Hypertension Hypothyroidism Microcytic anemia Obesity, Class III, BMI 40-49.9 (morbid obesity) (HCC) Renal calculi No past surgical history on file. ALLERGIES Hydrochlorothiazide, Naproxen, and Asa [Salicylates] MEDICATIONS apixaban (ELIQUIS) 5 mg tab(s) Take 5 mg by mouth once daily. ondansetron orally disintegrating (ZOFRAN ODT) 4 mg disintegrating tablet Take 1 tablet by mouth every 6 hours as needed for nausea/vomiting. progesterone micronized (PROMETRIUM) 200 mg capsule magnesium oxide 200 mg magnesium tab Take 1 tablet by mouth daily at bedtime. atogepant (QULIPTA) 30 mg tablet Take by mouth. budesonide-formoterol (SYMBICORT) 160-4.5 mcg/actuation inhaler Inhale 2 Puffs as instructed. fremanezumab-vfrm (AJOVY AUTOINJECTOR) 225 mg/1.5 mL auto-injector Inject 225 mg subcutaneously once every month. Do not shake. nystatin (MYCOSTATIN) powder Apply 1 application to affected area three times daily. megestrol (MEGACE) 40 mg tablet Take 40 mg by mouth once daily. TRELEGY ELLIPTA 100-62.5-25 mcg INHALE 1 PUFF DAILY with good oral care levothyroxine (SYNTHROID) 300 mcg tablet Take by mouth. Not taking benzonatate (TESSALON PERLES) 100 mg capsule Take 2 capsules by mouth three times daily as needed. (Patient not taking: Reported on 03/08/2023) guaiFENesin (MUCINEX FAST-MAX CHEST-CONGEST) 100 mg/5 mL syrup Take 20 mL by mouth every 4 hours as needed. (Patient not taking: Reported on 03/08/2023) acetaminophen(TYLENOL 325 MG TAB) No family history on file. Social History Tobacco Use Smoking status: Never Smokeless tobacco: Never Substance Use Topics Alcohol use: No Drug use: Never ROS Objective Blood pressure 144/95, pulse 94, temperature 36.6 ?C (97.8 ?F), resp. rate 18, weight 134.7 kg (297 lb), SpO2 99%. Physical Exam Constitutional: General: She is not in acute distress. Appearance: She is not toxic-appearing or diaphoretic. HENT: Head: Normocephalic and atraumatic. Pulmonary: Effort: Pulmonary effort is normal. No accessory muscle usage or respiratory distress. Musculoskeletal: Feet: Neurological: Mental Status: She is alert and oriented to person, place, and time. ASSESSMENT/PLAN: 1. Closed fracture of right foot, initial encounter - ICD9: 825.20, ICD10: S92.901A (primary diagnosis) Boot supplied Otc management discussed Will refer to podiatry - CONSULT TO PODIATRY 2. Injury of right lower extremity, initial encounter - ICD9: 959.7, ICD10: S89.91XA - XR FOOT GENERAL 3V AP/LAT/OBL RIGHT IMPRESSION: Questionable fracture fragment near base of second metatarsal. If a true finding this would be consistent with a Lisfranc's type injury. Suggest correlation with CT of the foot. Plantar spur Soft tissue swelling. Dictated by : JAGJIT CENTENO MD - XR ANKLE GENERAL 3V AP/LAT/OBL RIGHT Satnam Rodriguez APRN.WRAPPING CLERK [facility] 04-15-2023 History of Presen t illness Narrative Images from the original note were not included. Subjective HPI HPI Kamala Gray is a 52 year old female who presents today for CC of fall few weeks ago, hurt right lower extremity. Was seen in ER for head/neck, never examined right lower extremity. Has tried otc medication for relief. Symptoms are worsened by rom/walking. Denies diabetes. .Patient presents with: Trauma: RLE swelling pain and un healing wound x 3 weeks PAST MEDICAL HISTORY Diagnosis Date Asthma with COPD Celiac disease CKD (chronic kidney disease) Diabetes mellitus type 2 (HCC) Gout Hyperlipidemia Hypertension Hypothyroidism Microcytic anemia Obesity, Class III, BMI 40-49.9 (morbid obesity) (HCC) Renal calculi No past surgical history on file. ALLERGIES Hydrochlorothiazide, Naproxen, and Asa [Salicylates] MEDICATIONS apixaban (ELIQUIS) 5 mg tab(s) Take 5 mg by mouth once daily. ondansetron orally disintegrating (ZOFRAN ODT) 4 mg disintegrating tablet Take 1 tablet by mouth every 6 hours as needed for nausea/vomiting. progesterone micronized (PROMETRIUM) 200 mg capsule magnesium oxide 200 mg magnesium tab Take 1 tablet by mouth daily at bedtime. atogepant (QULIPTA) 30 mg tablet Take by mouth. budesonide-formoterol (SYMBICORT) 160-4.5 mcg/actuation inhaler Inhale 2 Puffs as instructed. fremanezumab-vfrm (AJOVY AUTOINJECTOR) 225 mg/1.5 mL auto-injector Inject 225 mg subcutaneously once every month. Do not shake. nystatin (MYCOSTATIN) powder Apply 1 application to affected area three times daily. megestrol (MEGACE) 40 mg tablet Take 40 mg by mouth once daily. TRELEGY ELLIPTA 100-62.5-25 mcg INHALE 1 PUFF DAILY with good oral care levothyroxine (SYNTHROID) 300 mcg tablet Take by mouth. Not taking benzonatate (TESSALON PERLES) 100 mg capsule Take 2 capsules by mouth three times daily as needed. (Patient not taking: Reported on 03/08/2023) guaiFENesin (MUCINEX FAST-MAX CHEST-CONGEST) 100 mg/5 mL syrup Take 20 mL by mouth every 4 hours as needed. (Patient not taking: Reported on 03/08/2023) acetaminophen(TYLENOL 325 MG TAB) No family history on file. Social History Tobacco Use Smoking status: Never Smokeless tobacco: Never Substance Use Topics Alcohol use: No Drug use: Never ROS Objective Blood pressure 144/95, pulse 94, temperature 36.6 C (97.8 F), resp. rate 18, weight 134.7 kg (297 lb), SpO2 99%. Physical Exam Constitutional: General: She is not in acute distress. Appearance: She is not toxic-appearing or diaphoretic. HENT: Head: Normocephalic and atraumatic. Pulmonary: Effort: Pulmonary effort is normal. No accessory muscle usage or respiratory distress. Musculoskeletal: Feet: Neurological: Mental Status: She is alert and oriented to person, place, and time. ASSESSMENT/PLAN: 1. Closed fracture of right foot, initial encounter - ICD9: 825.20, ICD10: S92.901A (primary diagnosis) Boot supplied Otc management discussed Will refer to podiatry - CONSULT TO PODIATRY 2. Injury of right lower extremity, initial encounter - ICD9: 959.7, ICD10: S89.91XA - XR FOOT GENERAL 3V AP/LAT/OBL RIGHT IMPRESSION: Questionable fracture fragment near base of second metatarsal. If a true finding this would be consistent with a Lisfranc's type injury. Suggest correlation with CT of the foot. Plantar spur Soft tissue swelling. Dictated by : JAGJIT CENTENO MD - XR ANKLE GENERAL 3V AP/LAT/OBL RIGHT Satnam Rodriguez APRN.WRAPPING CLERK documented in this encounter [facility] 04-15-2023 History of Presen t illness Narrative Radiology Service Progress Note PATIENT NAME: Kamala Gray DATE OF SERVICE: April 15, 2023 TIME: 3:47 PM PATIENT IDENTITY VERIFICATION COMPLETED USING TWO (2) IDENTIFIERS: Name and Date of confirmed by patient verbally. FALL SCREENING: Has the patient had 2 falls in the last year or 1 fall with injury or currently using an Ambulatory Assistive Device (Walker, Cane, Wheelchair, Crutches, etc.)? No PATIENT GENDER DATA: Female. status: : No status: NO. PATIENT RELEVANT IMPLANT DATA REVIEWED: Yes PATIENT PRESENTS WITH AN IMPLANTABLE OR ATTACHED CHICKEN TENDER: No RADIOLOGY DEPARTMENT: General X-ray: Exam(s) Completed: Lower Extremity X-Ray(s): Ankle, Right and Foot, Right PERIPHERAL IV DATA: Not applicable SIGNED BY: RT Christiano(Ambreen) April 15, 2023 3:47 PM documented in this encounter [facility] 04-15-2023 Note HNO ID: [id number] Author: SHAWANDA SIMS RT (R) Service: ? Author Type: Proof Carrier Type: Progress Notes Filed: 04/15/2023 15:58 Note Text: Radiology Service Progress Note PATIENT NAME: Kamala Gray DATE OF SERVICE: April 15, 2023 TIME: 3:47 PM PATIENT IDENTITY VERIFICATION COMPLETED USING TWO (2) IDENTIFIERS: Name and Date of confirmed by patient verbally. FALL SCREENING: Has the patient had 2 falls in the last year or 1 fall with injury or currently using an Ambulatory Assistive Device (Walker, Cane, Wheelchair, Crutches, etc.)? No PATIENT GENDER DATA: Female. status: : No status: NO. PATIENT RELEVANT IMPLANT DATA REVIEWED: Yes PATIENT PRESENTS WITH AN IMPLANTABLE OR ATTACHED CHICKEN TENDER: No RADIOLOGY DEPARTMENT: General X-ray: Exam(s) Completed: Lower Extremity X-Ray(s): Ankle, Right and Foot, Right PERIPHERAL IV DATA: Not applicable SIGNED BY: RT Christiano(R) April 15, 2023 3:47 PM [facility] 04-03-2023 Hospital Discharg e instructions Patient Education 04/03/2023 18:37:04 Chest Pain, Uncertain Cause Uncertain Causes of [...] Swelling, pain or redness in one leg [id number] [employer]. [address] [place] [address]. All rights reserved. This information is not intended as a substitute for professional medical care. Always follow your healthcare professional's instructions. 04/03/2023 18:36:54 Abdominal Pain Abdominal Pain Abdominal pain is [...] foods again, start with small amounts of wauv-jz-cwelwn, low-fat foods. These include apple sauce, toast, [...] increase stomach acid. Don't use aspirin or rvmv-yqc-drdibal pain and fever medicines, if possible. This includes nonsteroidal anti-inflammatory drugs (NSAIDs). Lose excess weight. Finish eating at least 2 hours before you go to bed or lie down. Raise the head of your bed. [phone] [employer]. [address] [place] [address]. All rights reserved. This information is not intended as a substitute for professional medical care. Always follow your healthcare professional's instructions. Follow Up Care 04/03/2023 16:22:22 With:ARAM JOHNSON DO Address: [address] [place] [phone] When:2-4 days [facility] 04-03-2023 Emergency department Discharge summary Discharge Instructions Thank you for allowing [facility] to assist you with your healthcare needs. The following is important discharge information regarding your hospital visit. Diagnosis from Today's Visit Abdominal pain Abdominal pain Atypical chest pain Chest pain What to Do Next Instructions from Your Care Team No qualifying data available. Post Acute Orders No qualifying data available. You Need to Schedule the Following Appointments Follow Up with ARAM JOHNSON DO When Within 2-4 days Where: [address] [place] [address]- [phone] Allergies Naprosyn (Nausea) aspirin (NAUSEA) naproxen Medications Please ask your primary doctor or pharmacist before taking any other medication not listed, including over the counter drugs, herbal medications, vitamins and or supplements as they may interact with your home medications. What How Much When Why Instructions Last Dose New polyethylene glycol 3350 (MiraLax oral powder for reconstitution) 17 gram(s) by mouth Once a day Duration: 14 Days dissolve in water before taking Printed Prescription Unchanged acetaminophen (Tylenol Extra Strength 500 mg oral tablet) 3 tab by mouth Every 6 hours as needed for as needed for pain Unchanged acetaminophen-hydrocodone ([place] 325- 5 mg oral tablet) 1 tab(s) [...] Once a day Duration: 30 Days Unchanged atogepant (Qulipta 60 mg oral tablet) 1 tab(s) by mouth Once a day Unchanged citalopram (CeleXA 40 mg oral tablet) 1 tab(s) by mouth Once a day Anxiety and depression Duration: 30 Days Unchanged fluticasone/ umeclidinium/ vilanterol (Trelegy Ellipta 100 mcg-62.5 mcg-25 mcg/ inh inhalation powder) 1 puff(s) by inhalation Once a day Asthma in adult Duration: 90 Days Managed by Pulmonology Unchanged gabapentin (gabapentin 100 mg oral capsule) 1 cap by mouth Three (3) times a day TAKE 1 CAPSULE BY MOUTH THREE TIMES DAILY Unchanged galcanezumab (Emgality Prefilled Pen 120 mg/ mL subcutaneous solution) Inject 120 mg every month by subcutaneous route. Unchanged levothyroxine (levothyroxine 175 mcg (0.175 mg) oral tablet) 1 tab(s) by mouth Once a day before a meal Unchanged mupirocin topical (mupirocin 2% topical ointment) USE 1 Application two times daily DIRECTED Unchanged nortriptyline (nortriptyline 50 mg oral capsule) 1 cap by mouth Daily at bedtime Unchanged ondansetron (Zofran 4 mg oral tablet) 1 tab(s) by mouth Every 6 hours as needed for Nausea/Vomiting Unchanged progesterone (progesterone 200 mg oral capsule) 400 Milligram by mouth Daily at bedtime Unchanged rimegepant [...] medication providers or retail pharmacies. Medication Leaflets polyethylene glycol 3350 (casey ee ETH il een GLYE kol) ClearLax, GaviLAX, HealthyLax, MiraLax, Natura-Lax, PTI0911, [employer] ClearLax What is the most important information I should know about polyethylene glycol 3350? You should not use this medicine if you have a bowel obstruction or intestinal blockage. If you have any of these conditions, you could have dangerous or life-threatening side effects from polyethylene glycol 3350. Do not use polyethylene glycol 3350 more than once per day. Call your doctor if you are still constipated or irregular after using this medication for 7 days in a row. What is polyethylene glycol 3350? Polyethylene glycol 3350 is a laxative solution that increases the amount of water in the intestinal tract to stimulate bowel movements. Polyethylene glycol 3350 is used as a laxative to treat occasional constipation or irregular bowel movements. Polyethylene glycol 3350 may also be used for purposes not listed in this medication guide. What should I discuss with my healthcare provider before taking polyethylene glycol 3350? You should not use this medicine if you are allergic to polyethylene glycol, or if you have a bowel obstruction or intestinal blockage. If you have any of these conditions, you could have dangerous or life-threatening side effects from polyethylene glycol 3350. People with eating disorders (such as anorexia or bulimia) should not use this medication without the advice of a doctor. To make sure this medicine is safe for you, tell your doctor if you have: nausea, vomiting, or severe stomach pain; ulcerative colitis; irritable bowel syndrome; kidney disease; or if you have had a sudden change in bowel habits that has lasted 2 weeks or longer. FDA category C. It is not known whether polyethylene glycol 3350 will harm an unborn baby. Tell your doctor if you are or plan to become while using this medication. It is not known whether polyethylene glycol 3350 passes into breast milk or if it could harm a nursing baby. Tell your doctor if you are breast-feeding a baby. How should I take polyethylene glycol 3350? Follow all directions on your prescription label. Do not use this medicine in larger or smaller amounts or for longer than recommended. To use the powder form of this medicine, measure your dose with the medicine cap on the bottle. This cap should contain dose soliman on the inside of it. Pour the powder into 4 to 8 ounces of a cold or hot beverage such as water, juice, soda, coffee, or tea. Stir this mixture and drink it right away. Do not save for later use. Polyethylene glycol 3350 should produce a bowel movement within 1 to 3 days of using the medication. Polyethylene glycol 3350 normally causes loose or even watery stools. Do not use polyethylene glycol 3350 more than once per day. Call your doctor if you are still constipated or irregular after using this medication for 7 days in a row. Store at room temperature away from moisture and heat. What happens if I miss a dose? Take the missed dose as soon as you remember. Skip the missed dose if it is almost time for your next scheduled dose. Do not take extra medicine to make up the missed dose. What happens if I overdose? Seek emergency medical attention or call the Poison Help line at . What should I avoid while taking polyethylene glycol 3350? Follow your doctor's instructions about any restrictions on food, beverages, or activity. What are the possible side effects of polyethylene glycol 3350? Get emergency medical help if you have signs of an allergic reaction: hives; difficult breathing; swelling of your face, lips, tongue, or throat. Stop taking this medicine and call your doctor at once if you have: severe or bloody diarrhea; rectal bleeding; blood in your stools; or severe and worsening stomach pain. Common side effects may include: bloating, gas, upset stomach; dizziness; or increased sweating. This is not a complete list of side effects and others may occur. Call your doctor for medical advice about side effects. You may report side effects to FDA at 6-336-IHB-1291. What other drugs will affect polyethylene glycol 3350? Other drugs may interact with polyethylene glycol 3350, including prescription and zask-opi-ynjnune medicines, vitamins, and herbal products. Tell each of your health care providers about all medicines you use now and any medicine you start or stop using. Where can I get more information? Your pharmacist can provide more information about polyethylene glycol 3350. Remember, keep this and all other medicines out of the reach of children, never share your medicines with others, and use this medication only for the indication prescribed. Every effort has been made to ensure that the information provided by [employer]. ('[employer]') is accurate, up-to-date, and complete, but no guarantee is made to that effect. Drug information contained herein may be time sensitive. [employer] information has been compiled for use by healthcare practitioners and consumers in the [place] and therefore [employer] does not warrant that uses outside of the [place] are appropriate, unless specifically indicated otherwise. [employer] drug information does not endorse drugs, diagnose patients or recommend therapy. [employer] drug information is an informational resource designed [...] effective or appropriate for any given patient. [employer] does not assume any responsibility for any aspect of healthcare administered with the aid of information [employer] provides. The information contained herein is not intended to cover all possible uses, directions, precautions, warnings, drug interactions, allergic reactions, or adverse effects. If you have questions about the drugs you are taking, check with your doctor, nurse or pharmacist. Copyright 3721-5199 [employer]. Version: 4.01. Revision Date: 09/29/2022. Education Materials Uncertain Causes of Chest Pain [...] Swelling, pain or redness in one leg 8375-8275 [employer]. [address] [place], [place] [id number]. All rights reserved. This information is not [...] foods again, start with small amounts of tgnb-zs-zdopsx, low-fat foods. These include apple sauce, toast, [...] increase stomach acid. Don't use aspirin or xqyp-fcg-qmrgbcl pain and fever medicines, if possible. This includes nonsteroidal anti-inflammatory drugs (NSAIDs). Lose excess weight. Finish eating at least 2 hours before you go to bed or lie down. Raise the head of your bed. 7563-[address] [employer]. [address] [place] [address]. All rights reserved. This information is not intended as a substitute for professional medical care. Always follow your healthcare professional's instructions. Additional Information VACCINATE! [facility]! Members of the community who have not yet received the COVID-19 vaccine and would like to receive it can visit one of [facility] vaccine clinics. There are many vaccine clinic locations within the [facility]. For locations and available times, please visit [email or web address] It is important to note that some COVID mobile vaccine clinics are held outdoors and may be canceled in rainy or stormy conditions. To learn more about pediatric vaccinations (ages 5-11), we invite you to visit the [facility] webpage. [email or web address] To learn more about the COVID-19 vaccine, we invite you to visit the CDC website for a list of frequently asked questions. https://www.cdc.gov/coronavirus/ 2019-ncov/vaccines/faq.html [facility] Access Instructions: Stay connected with your healthcare team and access your personal medical information anytime with the [facility] Portal. If you would like a full copy of your medical records please contact the [facility] Medical Records Department Tuesday through Tuesday between 8a.m. and 4:30p.m. Please follow the directions below to access the portal: 1.Access the email account you provided upon registration to the hospital.2.Look for an invitation email from [facility].3.Open the email and access the invitation link: Accept Invitation to [facility].Fill in the required lee to create your account. Sign into [email or web address] with your username and password that you [...] you will allow to register on the [facility] Patient Portal for access to your information. You can also access the [facility] Patient Portal on the [employer]. Simply click on Health Records under Health Data and then click on the [employer] logo. HOW TO SAFELY DISPOSE OF PRESCRIPTION [...] Call your local pharmacy or go to [email or web address] to find one close to you.3.Make use of household items: Use cat litter or old coffee grounds to dispose medications if other options are not available. Mix your drugs with these household products, seal them in an airtight container and throw it into the garbage. Call [facility]: [phone] to be sure your drugs can be [...] Patient Education Materials Chest Pain, Uncertain Cause Abdominal Pain Medication Leaflets polyethylene glycol 3350 My discharge plan and instructions have been reviewed and explained to me and I,ISAAC, KAMALA L understand my current condition and have read and understand these discharge instructions. I have received a written copy of the plan/instructions. If I have questions, I am aware that I should contact my doctor. Patient/Charrer Signature: Date/Time: Relationship to Patient: Witness Name/Signature: Date/Time: [facility] 04-03-2023 Note ORIGINAL EXAMINATION: CT OF THE ABDOMEN AND PELVIS WITH CONTRAST 04/03/2023 6:31 pm TECHNIQUE: CT of the abdomen and pelvis was performed with the administration of intravenous contrast. Multiplanar reformatted images are provided for review. Automated exposure control, iterative reconstruction, and/or weight based adjustment of the mA/kV was utilized to reduce the radiation dose to as low as reasonably achievable. COMPARISON: CTA chest 03/28/2023, CT abdomen and pelvis 12/24/2022 HISTORY: ORDERING SYSTEM PROVIDED HISTORY: Reason for Exam: pain FINDINGS: Multilevel degenerative changes throughout the spine. Mild skin thickening and subcutaneous edema at the inferior aspect of the pannus. No focal fluid collection. Tiny fat containing umbilical hernia. Included lung bases are clear. Subtle angular hypodensity in the medial left hepatic lobe near the hilum of the liver is similar to the 12/24/2022 exam and most likely represents focal fat. The gallbladder, spleen, pancreas and both adrenal glands are unremarkable. Symmetric nephrograms. No hydronephrosis, nephrolithiasis or perinephric stranding. There are bilateral parapelvic cysts. No focal bladder wall thickening. The uterus appears grossly normal. No GI tract dilatation or inflammatory change. No pericecal inflammation. No free air or free fluid. The aorta is moderately atherosclerotic and nonaneurysmal. No pathologically enlarged lymph nodes. IMPRESSION: Mild skin thickening and subcutaneous edema involving the inferior aspect of the pannus, suggestive of cellulitis. No abscess. Correlate with physical exam. Otherwise no acute abnormality in the abdomen or pelvis. I have personally reviewed the images of this examination and agree with the resident's findings and interpretation. Interpreted by: Sajan Yang Preliminary Report By: Val No Electronically signed By Sajan Yang Dictated Date: 04/03/2023 6:34:44 PM Prelim Date: 04/03/2023 6:43:18 PM Sign Date: 04/03/2023 6:45:01 PM Ordering Provider: [facility] 04-03-2023 Note ORIGINAL EXAMINATION: ONE XRAY VIEW OF THE CHEST 04/03/2023 5:27 pm COMPARISON: Strategic Planning Manager view from CT chest March 28, 2023 HISTORY: ORDERING SYSTEM PROVIDED HISTORY: Reason for Exam: chest pain FINDINGS: Cardiomediastinal silhouette is unchanged in size. Costophrenic angles are sharp. No radiographic pneumothorax. No focal consolidation. Osseous structures grossly unchanged. IMPRESSION: No acute radiographic findings. Interpreted by: Sajan Yang Preliminary Report By: Sajan Yang Electronically signed By Sajan Yang Dictated Date: 04/03/2023 5:32:49 PM Prelim Date: 04/03/2023 5:33:27 PM Sign Date: 04/03/2023 5:33:27 PM Ordering Provider: DEBBIE CHATMAN [facility] 04-03-2023 Note Sinus rhythm RSR' in V1 or V2, right VCD or RVH Borderline T abnormalities, anterior leads Prolonged QT interval Electronic Signature: DEBBIE CHATMAN DO 04/03/2023 17:04:20 [facility] 03-31-2023 Note HNO ID: [id number] Author: WHITLEY HSIEH APRN.WRAPPING CLERK Service: ? Author Type: Nurse Practitioner Type: Progress Notes Filed: 03/31/2023 11:26 Note Text: Subjective Headache Associated symptoms include nausea and vomiting. Pertinent negatives include no fever. Kamala Gray is a 52 year old female who presents with a headache and nausea for the past 2 days. She rates her headache pain 8/10. She denies visual changes or dizziness. She took her prescribed headache medication but it has not helped. She has not had any associated URI symptoms. She vomited twice yesterday. Review of Systems Constitutional: Negative for chills and fever. Respiratory: Negative. Cardiovascular: Negative. Gastrointestinal: Positive for nausea and vomiting. Negative for abdominal pain and diarrhea. Neurological: Positive for headaches. Negative for speech change, focal weakness, loss of consciousness and weakness. BP 122/82 Pulse 97 Temp 36.7 ?C (98 ?F) (Tympanic) Resp 18 Wt 127.3 kg (280 lb 11 oz) LMP (LMP Unknown) SpO2 96% PAST MEDICAL HISTORY Diagnosis Date Asthma with COPD Celiac disease CKD (chronic kidney disease) Diabetes mellitus type 2 (HCC) Gout Hyperlipidemia Hypertension Hypothyroidism Microcytic anemia Obesity, Class III, BMI 40-49.9 (morbid obesity) (HCC) Renal calculi No past surgical history on file. ALLERGIES Hydrochlorothiazide, Naproxen, and Asa [Salicylates] MEDICATIONS progesterone micronized (PROMETRIUM) 200 mg capsuleDisp: Rfl: magnesium oxide 200 mg magnesium tabTake 1 tablet by mouth daily at bedtime.Disp: 15 tabletRfl: 0 atogepant (QULIPTA) 30 mg tabletTake by mouth.Disp: Rfl: budesonide-formoterol (SYMBICORT) 160-4.5 mcg/actuation inhalerInhale 2 Puffs as instructed.Disp: Rfl: fremanezumab-vfrm (AJOVY AUTOINJECTOR) 225 mg/1.5 mL auto-injectorInject 225 mg subcutaneously once every month. Do not shake.Disp: Rfl: nystatin (MYCOSTATIN) powderApply 1 application to affected area three times daily.Disp: 60 gRfl: 0 megestrol (MEGACE) 40 mg tabletTake 40 mg by mouth once daily.Disp: Rfl: TRELEGY ELLIPTA 100-62.5-25 mcgINHALE 1 PUFF DAILY with good oral careDisp: Rfl: levothyroxine (SYNTHROID) 300 mcg tabletTake by mouth. Not takingDisp: 120 tabletRfl: 11 acetaminophen(TYLENOL 325 MG TAB)Disp: Rfl: 0 ondansetron orally disintegrating (ZOFRAN ODT) 4 mg disintegrating tabletTake 1 tablet by mouth every 6 hours as needed for nausea/vomiting.Disp: 12 tabletRfl: 0 benzonatate (TESSALON PERLES) 100 mg capsuleTake 2 capsules by mouth three times daily as needed.Disp: 30 capsuleRfl: 0 (Patient not taking: Reported on 03/08/2023) guaiFENesin (MUCINEX FAST-MAX CHEST-CONGEST) 100 mg/5 mL syrupTake 20 mL by mouth every 4 hours as needed.Disp: 120 mLRfl: 0 (Patient not taking: Reported on 03/08/2023) No family history on file. Social History Tobacco Use Smoking status: Never Smokeless tobacco: Never Substance Use Topics Alcohol use: No Drug use: Never Objective Physical Exam Vitals and nursing note reviewed. Constitutional: Appearance: Normal appearance. HENT: Mouth/Throat: Mouth: Mucous membranes are moist. Pharynx: Oropharynx is clear. Uvula midline. No oropharyngeal exudate or posterior oropharyngeal erythema. Eyes: Extraocular Movements: Extraocular movements intact. Right eye: Normal extraocular motion and no nystagmus. Left eye: Normal extraocular motion and no nystagmus. Pupils: Pupils are equal, round, and reactive to light. Cardiovascular: Rate and Rhythm: Normal rate and regular rhythm. Heart sounds: Normal heart sounds. Pulmonary: Effort: Pulmonary effort is normal. No respiratory distress. Breath sounds: Normal breath sounds. No wheezing or rales. Musculoskeletal: Cervical back: Neck supple. Lymphadenopathy: Cervical: No cervical adenopathy. Skin: General: Skin is warm and dry. Findings: No erythema or rash. Neurological: Mental Status: She is alert. ASSESSMENT/PLAN: 1. Headache, unspecified headache type - ICD9: 784.0, ICD10: R51.9 (primary diagnosis) - KETOROLAC 60 MG/2 ML INTRAMUSCULAR SOLUTION- given in office - Patient states pain is improved prior to discharge. 2. Nausea - ICD9: 787.02, ICD10: R11.0 - ONDANSETRON 4 MG DISINTEGRATING TABLET - Follow-up with your PCP in 3-5 days if symptoms have not improved or sooner if symptoms worsen - Discussed red flags and need for immediate medical evaluation if any occur. - Discussed supportive care treatment with fluids, rest and analgesia. - Discussed expected course of illness Whitley Hsieh APRN.[facility] 03-31-2023 History of Presen t illness Narrative Subjective Headache Associated symptoms include nausea and vomiting. Pertinent negatives include no fever. Kamala Gray is a 52 year old female who presents with a headache and nausea for the past 2 days. She rates her headache pain 8/10. She denies visual changes or dizziness. She took her prescribed headache medication but it has not helped. She has not had any associated URI symptoms. She vomited twice yesterday. Review of Systems Constitutional: Negative for chills and fever. Respiratory: Negative. Cardiovascular: Negative. Gastrointestinal: Positive for nausea and vomiting. Negative for abdominal pain and diarrhea. Neurological: Positive for headaches. Negative for speech change, focal weakness, loss of consciousness and weakness. BP 122/82 Pulse 97 Temp 36.7 C (98 F) (Tympanic) Resp 18 Wt 127.3 kg (280 lb 11 oz) LMP (LMP Unknown) SpO2 96% PAST MEDICAL HISTORY Diagnosis Date Asthma with COPD Celiac disease CKD (chronic kidney disease) Diabetes mellitus type 2 (HCC) Gout Hyperlipidemia Hypertension Hypothyroidism Microcytic anemia Obesity, Class III, BMI 40-49.9 (morbid obesity) (HCC) Renal calculi No past surgical history on file. ALLERGIES Hydrochlorothiazide, Naproxen, and Asa [Salicylates] MEDICATIONS progesterone micronized (PROMETRIUM) 200 mg capsule^^Disp: ^Rfl: magnesium oxide 200 mg magnesium tab^Take 1 tablet by mouth daily at bedtime.^Disp: 15 tablet^Rfl: 0 atogepant (QULIPTA) 30 mg tablet^Take by mouth.^Disp: ^Rfl: budesonide-formoterol (SYMBICORT) 160-4.5 mcg/actuation inhaler^Inhale 2 Puffs as instructed.^Disp: ^Rfl: fremanezumab-vfrm (AJOVY AUTOINJECTOR) 225 mg/1.5 mL auto-injector^Inject 225 mg subcutaneously once every month. Do not shake.^Disp: ^Rfl: nystatin (MYCOSTATIN) powder^Apply 1 application to affected area three times daily.^Disp: 60 g^Rfl: 0 megestrol (MEGACE) 40 mg tablet^Take 40 mg by mouth once daily.^Disp: ^Rfl: TRELEGY ELLIPTA 100-62.5-25 mcg^INHALE 1 PUFF DAILY with good oral care^Disp: ^Rfl: levothyroxine (SYNTHROID) 300 mcg tablet^Take by mouth. Not taking^Disp: 120 tablet^Rfl: 11 acetaminophen(TYLENOL 325 MG TAB)^^Disp: ^Rfl: 0 ondansetron orally disintegrating (ZOFRAN ODT) 4 mg disintegrating tablet^Take 1 tablet by mouth every 6 hours as needed for nausea/vomiting.^Disp: 12 tablet^Rfl: 0 benzonatate (TESSALON PERLES) 100 mg capsule^Take 2 capsules by mouth three times daily as needed.^Disp: 30 capsule^Rfl: 0 (Patient not taking: Reported on 03/08/2023) guaiFENesin (MUCINEX FAST-MAX CHEST-CONGEST) 100 mg/5 mL syrup^Take 20 mL by mouth every 4 hours as needed.^Disp: 120 mL^Rfl: 0 (Patient not taking: Reported on 03/08/2023) No family history on file. Social History Tobacco Use Smoking status: Never Smokeless tobacco: Never Substance Use Topics Alcohol use: No Drug use: Never Objective Physical Exam Vitals and nursing note reviewed. Constitutional: Appearance: Normal appearance. HENT: Mouth/Throat: Mouth: Mucous membranes are moist. Pharynx: Oropharynx is clear. Uvula midline. No oropharyngeal exudate or posterior oropharyngeal erythema. Eyes: Extraocular Movements: Extraocular movements intact. Right eye: Normal extraocular motion and no nystagmus. Left eye: Normal extraocular motion and no nystagmus. Pupils: Pupils are equal, round, and reactive to light. Cardiovascular: Rate and Rhythm: Normal rate and regular rhythm. Heart sounds: Normal heart sounds. Pulmonary: Effort: Pulmonary effort is normal. No respiratory distress. Breath sounds: Normal breath sounds. No wheezing or rales. Musculoskeletal: Cervical back: Neck supple. Lymphadenopathy: Cervical: No cervical adenopathy. Skin: General: Skin is warm and dry. Findings: No erythema or rash. Neurological: Mental Status: She is alert. ASSESSMENT/PLAN: 1. Headache, unspecified headache type - ICD9: 784.0, ICD10: R51.9 (primary diagnosis) - KETOROLAC 60 MG/2 ML INTRAMUSCULAR SOLUTION- given in office - Patient states pain is improved prior to discharge. 2. Nausea - ICD9: 787.02, ICD10: R11.0 [...] Whitley Hsieh APRN.CNP documented in this encounter [facility] 03-31-2023 Instructions Whitley Hsieh APRN.CNP - 03/31/2023 11:07 AM EST ASSESSMENT/PLAN: 1. Headache, unspecified headache type - ICD9: 784.0, ICD10: R51.9 (primary diagnosis) - KETOROLAC 60 MG/2 ML INTRAMUSCULAR SOLUTION- given in office 2. Nausea - ICD9: 787.02, ICD10: R11.0 [...] for concern. INSTRUCTIONS: 1. You may use [id number] pain medication such as acetaminophen, ibuprofen, or [...] arms or legs. documented in this encounter [facility] 03-28-2023 Hospital Discharg e instructions Patient Education 03/28/2023 12:49:15 Pulmonary Embolism Pulmonary Embolism (PE) A pulmonary embolus is most often due to a blood clot that develops in a deep vein of the leg (deep vein thrombosis). If that clot, breaks loose and travels to the lung, it is called a pulmonary embolism (PE). This can cut off the flow of blood in the lungs. A blood clot in the lungs is a medical emergency and may cause . Healthcare providers use the term venous thromboembolism (VTE) to describe these 2 conditions: deep vein thrombosis and pulmonary embolism. They use the term VTE because the 2 conditions are very closely related. And, because their prevention and treatment are also closely related. A pulmonary embolism occurs when a blood clot forms in a vein and travels to the lungs. How is pulmonary embolism diagnosed? Your healthcare provider examines you and asks about your symptoms and health history. You may also have one or more of the following: Blood tests to check for blood clotting or other problems Imaging tests to look for clots in the veins or lung Electrocardiography (ECG) to test how well the heart is working How is pulmonary embolism treated? Blood-thinning medicines (anticoagulants). These medicines thin the blood. They may be given as a pill, as an injection, or through a tube into a vein (intravenous or IV). Blood thinners help prevent more blood clots from forming. They also help to prevent an existing clot from getting larger. Thrombolysis. Thrombolytic medicines are used to quickly dissolve a blood clot. A long, narrow tube (catheter) is used to deliver medicine directly to the clot. Thrombolytic medicines increase the risk of bleeding so they are used very carefully. Inferior vena cava (IVC) filter surgery. The vena cava is the body s largest vein. It carries blood from the body to the heart. A small filter traps blood clots in the lower body and prevents them from traveling to the lungs. The filter is inserted into the vein through a catheter. The filter may be used if blood thinners cannot be taken or if they don't work. Pulmonary embolectomy. This is a procedure to remove a blood clot in the lungs. It may be done with surgery or with a catheter inserted in the body. It may be done when other treatments aren't safe or don't work. What are the long-term concerns? With treatment, blood clots are usually dissolved or removed. Some treatments can even help prevent future clots. But having a PE can put you at risk for another life-threatening blood clot. So, you will likely need to take anticoagulants to help keep blood clots from forming again. You may need to take this medicine for months or years. You may also need to make lifestyle changes. This may include getting more active and eating healthier. You may need to wear elastic (compression) stockings and and take breaks on long trips. Call 911 Call 911 or get emergency help if you have symptoms of a blood clot that has traveled to the lungs. The symptoms include: Chest pain Trouble breathing Coughing (may cough up blood) Fainting Fast heartbeat Sweating Call 911 if you have heavy or uncontrolled bleeding. When to call your healthcare provider Call your healthcare provider if you have swelling or pain in your leg, arm, or other area. These are symptoms of a blood clot. You may have bleeding if you take medicine to help prevent blood clots. Call your healthcare provider if you have signs or symptoms of bleeding. This includes: Blood in the urine Bleeding with bowel movements Bleeding from the nose, gums, a cut, or vagina [id number] [employer]. [address] [place] [address]. All rights reserved. This information is not intended as a substitute for professional medical care. Always follow your healthcare professional's instructions. Follow Up Care 03/28/2023 08:50:45 With:ARAM JOHNSON DO Address: [address] [place] [phone] When:2-4 days [facility] 03-28-2023 Note Discharge Instructions Thank you for allowing [facility] to assist you with your healthcare needs. The following is important discharge information regarding your hospital visit. Diagnosis from Today's Visit Chest pain Pulmonary embolism What to Do Next Instructions from Your Care Team No qualifying data available. Post Acute Orders No qualifying data available. You Need to Schedule the Following Appointments Follow Up with ARAM JOHNSON DO When Within 2-4 days Where: [facility] [place] [address]- [phone] Allergies Naprosyn (Nausea) aspirin (NAUSEA) naproxen Medications Please ask your primary doctor or pharmacist before taking any other medication not listed, including over the counter drugs, herbal medications, vitamins and or supplements as they may interact with your home medications. What How Much When Why Instructions Last Dose Changed acetaminophen-hydrocodone ([place] 325- 5 mg oral tablet) 1 tab(s) by mouth Every 6 hours as needed for for pain Pulmonary embolism Duration: 3 Days Printed Prescription Changed acetaminophen-hydrocodone ([place] 325- 5 mg oral tablet) 1 tab(s) by mouth Every 6 hours as needed for for pain Headache Duration: 3 Days Unchanged acetaminophen (Tylenol Extra Strength 500 [...] Once a day Duration: 30 Days Unchanged atogepant (Qulipta 60 mg oral tablet) 1 tab(s) by mouth Once a day Unchanged citalopram (CeleXA 40 mg oral tablet) 1 tab(s) by mouth Once a day Anxiety and depression Duration: 30 Days Unchanged fluticasone/ umeclidinium/ vilanterol (Trelegy Ellipta 100 mcg-62.5 mcg-25 mcg/ inh inhalation powder) 1 puff(s) by inhalation Once a day Asthma in adult Duration: 90 Days Managed by Pulmonology Unchanged gabapentin (gabapentin 100 mg oral capsule) 1 cap by mouth Three (3) times a day TAKE 1 CAPSULE BY MOUTH THREE TIMES DAILY Unchanged galcanezumab (Emgality Prefilled Pen 120 mg/ mL subcutaneous solution) Inject 120 mg every month by subcutaneous route. Unchanged levothyroxine (levothyroxine 175 mcg (0.175 mg) oral tablet) 1 tab(s) by mouth Once a day before a meal Unchanged mupirocin topical (mupirocin 2% topical ointment) USE 1 Application two times daily DIRECTED Unchanged nortriptyline (nortriptyline 50 mg oral capsule) 1 cap by mouth Daily at bedtime Unchanged ondansetron (Zofran 4 mg oral tablet) 1 tab(s) by mouth Every 6 hours as needed for Nausea/Vomiting Unchanged progesterone (progesterone 200 mg oral capsule) 400 Milligram by mouth Daily at bedtime Unchanged rimegepant [...] medication providers or retail pharmacies. Education Materials Pulmonary Embolism (PE) A pulmonary embolus is most often due to a blood clot that develops in a deep vein of the leg (deep vein thrombosis). If that clot, breaks loose and travels to the lung, it is called a pulmonary embolism (PE). This can cut off the flow of blood in the lungs. A blood clot in the lungs is a medical emergency and may cause . Healthcare providers use the term venous thromboembolism (VTE) to describe these 2 conditions: deep vein thrombosis and pulmonary embolism. They use the term VTE because the 2 conditions are very closely related. And, because their prevention and treatment are also closely related. A pulmonary embolism occurs when a blood clot forms in a vein and travels to the lungs. How is pulmonary embolism diagnosed? Your healthcare provider examines you and asks about your symptoms and health history. You may also have one or more of the following: Blood tests to check for blood clotting or other problems Imaging tests to look for clots in the veins or lung Electrocardiography (ECG) to test how well the heart is working How is pulmonary embolism treated? Blood-thinning medicines (anticoagulants). These medicines thin the blood. They may be given as a pill, as an injection, or through a tube into a vein (intravenous or IV). Blood thinners help prevent more blood clots from forming. They also help to prevent an existing clot from getting larger. Thrombolysis. Thrombolytic medicines are used to quickly dissolve a blood clot. A long, narrow tube (catheter) is used to deliver medicine directly to the clot. Thrombolytic medicines increase the risk of bleeding so they are used very carefully. Inferior vena cava (IVC) filter surgery. The vena cava is the body s largest vein. It carries blood from the body to the heart. A small filter traps blood clots in the lower body and prevents them from traveling to the lungs. The filter is inserted into the vein through a catheter. The filter may be used if blood thinners cannot be taken or if they don't work. Pulmonary embolectomy. This is a procedure to remove a blood clot in the lungs. It may be done with surgery or with a catheter inserted in the body. It may be done when other treatments aren't safe or don't work. What are the long-term concerns? With treatment, blood clots are usually dissolved or removed. Some treatments can even help prevent future clots. But having a PE can put you at risk for another life-threatening blood clot. So, you will likely need to take anticoagulants to help keep blood clots from forming again. You may need to take this medicine for months or years. You may also need to make lifestyle changes. This may include getting more active and eating healthier. You may need to wear elastic (compression) stockings and and take breaks on long trips. Call 911 Call 911 or get emergency help if you have symptoms of a blood clot that has traveled to the lungs. The symptoms include: Chest pain Trouble breathing Coughing (may cough up blood) Fainting Fast heartbeat Sweating Call 911 if you have heavy or uncontrolled bleeding. When to call your healthcare provider Call your healthcare provider if you have swelling or pain in your leg, arm, or other area. These are symptoms of a blood clot. You may have bleeding if you take medicine to help prevent blood clots. Call your healthcare provider if you have signs or symptoms of bleeding. This includes: Blood in the urine Bleeding with bowel movements Bleeding from the nose, gums, a cut, or vagina [id number] [employer]. [address] [facility], [place] [address]. All rights reserved. This information is not intended as a substitute for professional medical care. Always follow your healthcare professional's instructions. Additional Information VACCINATE! IT SAVES LIVES! Members of the community who have not yet received the COVID-19 vaccine and would like to receive it can visit one of [facility] vaccine clinics. There are many vaccine clinic locations within the State. For locations and available times, please visit [email or web address] It is important to note that some COVID mobile vaccine clinics are held outdoors and may be canceled in rainy or stormy conditions. To learn more about pediatric vaccinations (ages 5-11), we invite you to visit the [facility] webpage. https://www.[facility].org/p ages/9329-Azfyb-Ifcelzkigvd-Freq stticu-Djbyz-Mzynfrjhf.html To learn more about the COVID-19 vaccine, we invite you to visit the CDC website for a list of frequently asked questions. https://www.cdc.gov/coronavirus/ 2019-ncov/vaccines/faq.html [facility] Patient Portal Access Instructions: Stay connected with your healthcare team and access your personal medical information anytime with the [facility] Patient Portal. If you would like a full copy of your medical records please contact the [facility] Medical Records Department Tuesday through Tuesday between 8a.m. and 4:30p.m. Please follow the directions below to access the portal: 1.Access the email account you provided upon registration to the hospital.2.Look for an invitation email from [facility].3.Open the email and access the invitation link: Accept Invitation to [facility]4.Fill in the required lee to create your account. Sign into [email or web address] with your username and password that you [...] you will allow to register on the [facility] Patient Portal for access to your information. You can also access the [facility] Patient Portal on the [employer] leigh. Simply click on Health Records under [...] Call your local pharmacy or go to [email or web address] to find one close to you.3.Make use of household items: Use cat litter or old coffee grounds to dispose medications if other options are not available. Mix your drugs with these household products, seal them in an airtight container and throw it into the garbage. Call [facility]: [phone] to be sure your drugs can be [...] a CHART COPY Signatures Patient Education Materials Pulmonary Embolism Medication Leaflets My discharge plan and instructions have been reviewed and explained to me and I,KAMALA GRAY understand my current condition and have read and understand these discharge instructions. I have received a written copy of the plan/instructions. If I have questions, I am aware that I should contact my doctor. Patient/Charrer Signature: Date/Time: Relationship to Patient: Witness Name/Signature: Date/Time: [facility] 03-28-2023 Note ORIGINAL EXAMINATION: CTA OF THE CHEST03/28/2023 11:16 am CTA CHEST WITH CONTRAST TECHNIQUE: CTA of the chest was performed after the administration of intravenous contrast. Multiplanar reformatted images are provided for review. MIP images are provided for review. Automated exposure control, iterative reconstruction, and/or weight based adjustment of the mA/kV was utilized to reduce the radiation dose to as low as reasonably achievable. CTA of the thorax was acquired in the axial plane. Coronal and sagittal reformatted images were reviewed. Three dimensional reconstructions were created on a separate workstation. COMPARISON: 12/24/2022 HISTORY: ORDERING SYSTEM PROVIDED HISTORY: Reason for Exam: difficulty breathing; suspect PE FINDINGS: Lobar branch filling defects seen in the right middle lobe and right lower lobe. Multiple segmental and subsegmental branch filling defects identified bilaterally. There are filling defects involving vessels to the right upper lobe, right middle lobe, right lower lobe a left lower lobe. The heart size is normal; no pericardial effusion. Atherosclerosis seen with coronary artery calcifications. There are no pathologically enlarged axillary, mediastinal or hilar lymph nodes. The aorta is normal in caliber. Trachea and central airways are patent. Small calcified granulomas noted. Previously described 4 mm right upper lobe nodule is no longer visible.. There is no pleural effusion or pneumothorax. No aggressive osseous lesions seen. Degenerative changes seen of the spine. The upper abdomen is not evaluated in detail. Borderline lymph nodes seen in the upper abdomen. Lymph node along the celiac axis measures 8 mm in short axis. No suspicious findings seen in the visualized portion of the abdomen. IMPRESSION: Numerous small lobar, segmental and subsegmental branch pulmonary emboli Atherosclerosis with coronary artery calcifications Borderline upper abdominal lymph node. Critical results were called by Dr. Lb Denny MD to MARIZA QUINONEZ on 03/28/2023 at 11:48. Interpreted by: Lb Denny MD Preliminary Report By: Lb Denny MD Electronically signed By Lb Denny MD Dictated Date: 03/28/2023 11:40:02 AM Prelim Date: 03/28/2023 11:48:35 AM Sign Date: 03/28/2023 11:48:35 AM Ordering Provider: MARIZA QUINONEZ [facility] 03-28-2023 Note Sinus rhythm Borderline abnrm T, anterolateral leads Prolonged QT interval Electronic Signature: MARIZA QUINONEZ MD 03/28/2023 09:43:21 [facility] 03-23-2023 Hospital Discharg e instructions Patient Education 03/23/2023 18:49:12 Head Injury (Adult) Head Injury (Adult) You [...] the ears or bruising around the eyes [id number] [employer]. [address] [place] [address]. All rights reserved. This information is not intended as a substitute for professional medical care. Always follow your healthcare professional's instructions. Follow Up Care 03/23/2023 17:27:32 With:ARAM JOHNSON DO Address: [address] [place] [phone] When:2-4 days [facility] 03-23-2023 Note Discharge Instructions Thank you for allowing [facility] to assist you with your healthcare needs. The following is important discharge information regarding your hospital visit. Diagnosis from Today's Visit Closed head injury Fall Headache Headache What to Do Next Instructions from Your Care Team No qualifying data available. Post Acute Orders No qualifying data available. You Need to Schedule the Following Appointments Follow Up with ARAM JOHNSON DO When Within 2-4 days Where: [address] [place] [phone] Allergies Naprosyn (Nausea) aspirin (NAUSEA) naproxen Medications Please ask your primary doctor or [...] for as needed for pain Unchanged acetaminophen-hydrocodone ([place] 325- 5 mg oral tablet) 1 tab(s) [...] Once a day Duration: 30 Days Unchanged atogepant (Qulipta 60 mg oral tablet) 1 tab(s) by mouth Once a day Unchanged citalopram (CeleXA 40 mg oral tablet) 1 tab(s) by mouth Once a day Anxiety and depression Duration: 30 Days Unchanged fluticasone/ umeclidinium/ vilanterol (Trelegy Ellipta 100 mcg-62.5 mcg-25 mcg/ inh inhalation powder) 1 puff(s) by inhalation Once a day Asthma in adult Duration: 90 Days Managed by Pulmonology Unchanged gabapentin (gabapentin 100 mg oral capsule) 1 cap by mouth Three (3) times a day TAKE 1 CAPSULE BY MOUTH THREE TIMES DAILY Unchanged galcanezumab (Emgality Prefilled Pen 120 mg/ mL subcutaneous solution) Inject 120 mg every month by subcutaneous route. Unchanged levothyroxine (levothyroxine 175 mcg (0.175 mg) oral tablet) 1 tab(s) by mouth Once a day before a meal Unchanged mupirocin topical (mupirocin 2% topical ointment) USE 1 Application two times daily DIRECTED Unchanged nortriptyline (nortriptyline 50 mg oral capsule) 1 cap by mouth Daily at bedtime Unchanged ondansetron (Zofran 4 mg oral tablet) 1 tab(s) by mouth Every 6 hours as needed for Nausea/Vomiting Unchanged progesterone (progesterone 200 mg oral capsule) 400 Milligram by mouth Daily at bedtime Unchanged rimegepant [...] medication providers or retail pharmacies. Education Materials Head Injury (Adult) You have [...] the ears or bruising around the eyes [id number] [employer]. [address] [place] [address]. All rights reserved. This information is not intended as a substitute for professional medical care. Always follow your healthcare professional's instructions. Additional Information VACCINATE! IT SAVES LIVES! Members of the community who have not yet received the COVID-19 vaccine and would like to receive it can visit one of [facility] vaccine clinics. There are many vaccine clinic locations within the [facility]. For locations and available times, please visit [email or web address] It is important to note that some COVID mobile vaccine clinics are held outdoors and may be canceled in rainy or stormy conditions. To learn more about pediatric vaccinations (ages 5-11), we invite you to visit the [facility] webpage. https://www.[facility].org/p ages/7033-Bwlur-Kfbvqrzmirn-Freq rhbkda-Cequc-Hpxjxstvg.html To learn more about the COVID-19 vaccine, we invite you to visit the CDC website for a list of frequently asked questions. https://www.cdc.gov/coronavirus/ 2019-ncov/vaccines/faq.html [facility] Patient Portal Access Instructions: Stay connected with your healthcare team and access your personal medical information anytime with the [facility] Patient Portal. If you would like a full copy of your medical records please contact the [facility] Medical Records Department Tuesday through Tuesday between 8a.m. and 4:30p.m. Please follow the directions below to access the portal: 1.Access the email account you provided upon registration to the [facility].2.Look for an invitation email from [facility].3.Open the email and access the invitation link: Accept Invitation to [facility]4.Fill in the required lee to create your account. Sign into [email or web address] with your username and password that you [...] you will allow to register on the [facility] Patient Portal for access to your information. You can also access the [facility] Patient Portal on the [employer]. Simply click on Health Records under Health [...] Call your local pharmacy or go to [email or web address] to find one close to you.3.Make use of household items: Use cat litter or old coffee grounds to dispose medications if other options are not available. Mix your drugs with these household products, seal them in an airtight container and throw it into the garbage. Call [facility]: [phone] to be sure your drugs can be [...] Education Materials Head Injury (Adult) Medication Leaflets My discharge plan and instructions have been reviewed and explained to me and I,KAMALA GRAY understand my current condition and have read and understand these discharge instructions. I have received a written copy of the plan/instructions. If I have questions, I am aware that I should contact my doctor. Patient/Charrer Signature: Date/Time: Relationship to Patient: Witness Name/Signature: Date/Time: [facility] 03-23-2023 Note ORIGINAL EXAMINATION: CT OF THE HEAD WITHOUT CONTRAST03/23/2023 4:[address] HEAD/BRAIN WITHOUT CONTRAST EXAM DESCRIPTION: TECHNIQUE: CT of the head was performed without the administration of intravenous contrast. Automated exposure control, iterative reconstruction, and/or weight based adjustment of the mA/kV was utilized to reduce the radiation dose to as low as reasonably achievable. COMPARISON: CT head, February 17, 2023 HISTORY: ORDERING SYSTEM PROVIDED HISTORY: Reason for Exam: pain/headache FINDINGS: The size, density, and morphology of the brain and CSF containing spaces appears normal. There is no evidence of mass, midline shift, hemorrhage, or infract. The ventricles, cortical sulci, and subarachnoid cisterns appear unremarkable. There are no extra-axial fluid collections. No regions of pathologic attenuation are evident. Regions of the orbits and paranasal sinuses included within the field of view are unremarkable. There is no displaced fracture or osseous neoplasm. The extracalvarial soft tissues appear unremarkable. IMPRESSION: No acute intracranial pathology. COMMENT: Changes resultant from ischemia (even significant ischemia) may often be inapparent on CT exam, particularly if imaged early. Additionally, early changes due to neoplastic or inflammatory processes can be subtle to the extent that they are not prospectively noted. Therefore, if symptoms persist, or clinical suspicion for pathology remains, further evaluation may be obtained with MRI. Interpreted by: Renzo Meng MD Preliminary Report By: Renzo Meng MD Electronically signed By Renzo Meng MD Dictated Date: 03/23/2023 6:47:42 PM Prelim Date: 03/23/2023 6:48:30 PM Sign Date: 03/23/2023 6:48:30 PM [facility] History of Presen t illness Narrative Radiology Service Progress Note PATIENT NAME: Kamala Gray DATE OF SERVICE: March 16, 2023 TIME: 9:21 AM PATIENT IDENTITY VERIFICATION COMPLETED USING TWO [...] General X-ray: Exam(s) Completed: Lower Extremity X-Ray(s): Toes, Right PERIPHERAL IV DATA: Not applicable SIGNED BY: RT Mimi(R) March 16, 2023 9:21 AM documented in this encounter [facility] 03-16-2023 Note HNO ID: [id number] Author: MERY LAO RT(R) Service: Radiology Author Type: Technologist Type: Progress Notes Filed: 03/16/2023 09:32 Note Text: Radiology Service Progress Note PATIENT NAME: Kamala Gray DATE OF SERVICE: March 16, 2023 TIME: 9:21 AM PATIENT IDENTITY VERIFICATION COMPLETED USING TWO [...] General X-ray: Exam(s) Completed: Lower Extremity X-Ray(s): Toes, Right PERIPHERAL IV DATA: Not applicable SIGNED BY: RT Mimi(R) March 16, 2023 9:21 AM [facility] 03-16-2023 Note HNO ID: [id number] Author: CORNELIUS BANERJEE PA Service: ? Author Type: Physician Car [employer]erry Captain Type: Progress Notes Filed: 03/16/2023 09:47 Note Text: This note was created using [employer]. Subjective Kamala Gray is a 52 year old female. HPI 52-year-old female presents for right great toe pain. Patient states she has history of gout and this feels similar. Her symptoms started a couple of days ago. She states it is red, swollen and painful to touch. Denies injury or fall. Of note, she is being treated for cellulitis/wound of the right gonzalez. It is scabbed over. She states symptoms are improving in regards to that. She is not on any medications for gout. Patient is also complaining of nausea, chills and generally not feeling well for the past day. She states she has not had any vomiting or diarrhea. No abdominal pain. She has chills and hot flashes. No fevers. No cough or URI symptoms. No other complaint. Patient states she is not a diabetic, not on any medications for diabetes. PAST MEDICAL HISTORY Diagnosis Date Asthma with COPD Celiac disease CKD (chronic kidney disease) Diabetes mellitus type 2 (HCC) Gout Hyperlipidemia Hypertension Hypothyroidism Microcytic anemia Obesity, Class III, BMI 40-49.9 (morbid obesity) (HCC) Renal calculi No past surgical history on file. ALLERGIES Hydrochlorothiazide, Naproxen, and Asa [Salicylates] MEDICATIONS progesterone micronized (PROMETRIUM) 200 mg capsule magnesium oxide 200 mg magnesium tab Take 1 tablet by mouth daily at bedtime. atogepant (QULIPTA) 30 mg tablet Take by mouth. budesonide-formoterol (SYMBICORT) 160-4.5 mcg/actuation inhaler Inhale 2 Puffs as instructed. fremanezumab-vfrm (AJOVY AUTOINJECTOR) 225 mg/1.5 mL auto-injector Inject 225 mg subcutaneously once every month. Do not shake. benzonatate (TESSALON PERLES) 100 mg capsule Take 2 capsules by mouth three times daily as needed. (Patient not taking: Reported on 03/08/2023) nystatin (MYCOSTATIN) powder Apply 1 application to affected area three times daily. ondansetron orally disintegrating (ZOFRAN ODT) 4 mg disintegrating tablet Take 1 tablet by mouth every 6 hours as needed for nausea/vomiting. (Patient not taking: Reported on 03/08/2023) guaiFENesin (MUCINEX FAST-MAX CHEST-CONGEST) 100 mg/5 mL syrup Take 20 mL by mouth every 4 hours as needed. (Patient not taking: Reported on 03/08/2023) megestrol (MEGACE) 40 mg tablet Take 40 mg by mouth once daily. (Patient not taking: Reported on 03/08/2023) TRELEGY ELLIPTA 100-62.5-25 mcg INHALE 1 PUFF DAILY with good oral care levothyroxine (SYNTHROID) 300 mcg tablet Take by mouth. Not taking acetaminophen(TYLENOL 325 MG TAB) No family history on file. Social History Tobacco Use Smoking status: Never Smokeless tobacco: Never Substance Use Topics Alcohol use: No Drug use: Never Review of Systems Constitutional: Positive for chills. Negative for fever. HENT: Negative for congestion, ear pain and sore throat. Respiratory: Negative for cough and shortness of breath. Cardiovascular: Negative for chest pain. Gastrointestinal: Positive for nausea. Negative for abdominal pain, diarrhea and vomiting. Genitourinary: Negative for flank pain, frequency and urgency. Musculoskeletal: Positive for arthralgias (Right great toe). Skin: Positive for color change. Objective BP 139/92 Pulse 99 Temp 37 ?C (98.6 ?F) Resp 18 Wt 130.1 kg (286 lb 12.8 oz) LMP (LMP Unknown) SpO2 96% Physical Exam Vitals and nursing note reviewed. Constitutional: General: She is not in acute distress. Appearance: Normal appearance. She is not toxic-appearing. HENT: Right Ear: Tympanic membrane and ear canal normal. Left Ear: Tympanic membrane and ear canal normal. Nose: Nose normal. Mouth/Throat: Mouth: Mucous membranes are moist. Pharynx: No oropharyngeal exudate or posterior oropharyngeal erythema. Eyes: Conjunctiva/sclera: Conjunctivae normal. Cardiovascular: Rate and Rhythm: Normal rate and regular rhythm. Pulmonary: Effort: Pulmonary effort is normal. Breath sounds: Normal breath sounds. Abdominal: General: Abdomen is flat. Palpations: Abdomen is soft. Tenderness: There is no abdominal tenderness. Musculoskeletal: Right foot: Normal capillary refill. Swelling, tenderness and bony tenderness present. Normal pulse. Legs: Comments: Patient has swelling no erythema noted around the right first MTP joint. Tender to touch. No lymphatic streaking. No fluctuance. No erythema of the toe or around the nail. DP and PT pulses 2+. No pitting edema. Normal sensation. Patient has a wound noted to right anterior gonzalez. It is scabbed over. No lymphatic streaking or significant surrounding erythema. She is currently on antibiotics for this. Neurological: Mental Status: She is alert. Assessment and Plan ASSESSMENT/PLAN: 1. Viral illness - ICD9: 079.99, ICD10: B34.9 (primary diagnosis) - (more content not included)... [facility] 03-11-2023 Hospital Discharg e instructions Patient Education 03/11/2023 11:54:54 Cellulitis, Adult, Jubl-bz-Lrxj Cellulitis, Adult Cellulitis is a skin infection. The infected area is often warm, red, swollen, and sore. It occurs most often in the arms and lower legs. It is very important to get treated for this condition. What are the causes? This condition is caused by bacteria. The bacteria enter through a break in the skin, such as a cut, burn, insect bite, open sore, or crack. What increases the risk? This condition is more likely to occur in people who: Have a weak body defense system (immune system). Have open cuts, watson, bites, or scrapes on the skin. Are older than 60 years of age. Have a blood sugar problem (diabetes). Have a long-lasting (chronic) liver disease (cirrhosis) or kidney disease. Are very overweight (obese). Have a skin problem, such as: ?Itchy rash (eczema). ?Slow movement of blood in the veins (venous stasis). ?Fluid buildup below the skin (edema). Have been treated with high-energy rays (radiation). Use IV drugs. What are the signs or symptoms? Symptoms of this condition include: Skin that is: ?Red. ?Streaking. ?Spotting. ?Swollen. ?Sore or painful when you touch it. ?Warm. A fever. Chills. Blisters. How is this diagnosed? This condition is diagnosed based on: Medical history. Physical exam. Blood tests. Imaging tests. How is this treated? Treatment for this condition may include: Medicines to treat infections or allergies. Home care, such as: ?Rest. ?Placing cold or warm cloths (compresses) on the skin. Hospital care, if the condition is very bad. Follow these instructions at home: Medicines Take yxmv-lgg-fzrhkuu and prescription medicines only as told by your doctor. If you were prescribed an antibiotic medicine, take it as told by your doctor. Do not stop taking it even if you start to feel better. General instructions Drink enough fluid to keep your pee (urine) pale yellow. Do not touch or rub the infected area. Raise (elevate) the infected area above the level of your heart while you are sitting or lying down. Place cold or warm cloths on the area as told by your doctor. Keep all follow-up visits as told by your doctor. This is important. Contact a doctor if: You have a fever. You do not start to get better after 1 2 days of treatment. Your bone or joint under the infected area starts to hurt after the skin has healed. Your infection comes back. This can happen in the same area or another area. You have a swollen bump in the area. You have new symptoms. You feel ill and have muscle aches and pains. Get help right away if: Your symptoms get worse. You feel very sleepy. You throw up (vomit) or have watery poop (diarrhea) for a long time. You see red streaks coming from the area. Your red area gets larger. Your red area turns dark in color. These symptoms may represent a serious problem that is an emergency. Do not wait to see if the symptoms will go away. Get medical help right away. Call your local emergency services (911 in the [place] Do not drive yourself to the hospital. Summary Cellulitis is a skin infection. The area is often warm, red, swollen, and sore. This condition is treated with medicines, rest, and cold and warm cloths. Take all medicines only as told by your doctor. Tell your doctor if symptoms do not start to get better after 1 2 days of treatment. This information is not intended to replace advice given to you by your health care provider. Make sure you discuss any questions you have with your health care provider. Document Released: 08/02/2008 Document Revised: 07/06/2018 Document Reviewed: 07/06/2018 [employer] Patient Education 2020 [employer]. Follow Up Care 03/09/2023 17:40:19 With:ARAM JOHNSON DO Address: [address] [place] [phone] When:3-5 days Comments:Please call to schedule your post-hospital follow-up appointment. [facility] 03-11-2023 Note Discharge Instructions Thank you for allowing [facility] to assist you with your healthcare needs. The following is important discharge information regarding your hospital visit. Your Care Team [address] BLOOD BANK SPECIALIST Your Diagnosis Anxiety and depression Asthma in adult Cellulitis of leg DM type 2, goal HbA1c < 7.5% Obstructive sleep apnea, adult What to do next Instructions From Your Doctor You were admitted due to very mild cellulitis of your right lower extremity. We treated you with IV Ceftriaxone for the past 2 days. There was little to no evidence of redness or swelling in that area today. You had been prescribed cephalexin by an ED doctor on 03/04 but did not pick it up until 03/08. We would recommend that you finish that antibiotic at home. Please call your PCP to schedule a post-hospital visit as soon as possible so your PCP can continue to monitor this area on your leg. We had PT and OT see you and evaluate you in the room. They recommended home health PT/OT but you refused. If you change your mind about home health PT/OT, please discuss this with your PCP as they can order it for you. Follow Up Appointments Follow Up with ARAM JOHNSON DO When Within 3-5 days Why: Please call to schedule your post-hospital follow-up appointment. Where: [address] [place] [address] [phone] The Following Activity and Diet Have Been Ordered for You Discharge Activity - Ordered -- Resume your pre-hospitalization activity, 03/11/23 12:00:00 EST Discharge Diet - Ordered -- No changes were made to your diet during your hospital stay. Please resume your pre hospitalization diet on discharge., 03/11/23 12:00:00 EST The Following Equipment Has Been Ordered for You Discharge Home Equipment Discharge Wound Care - Ordered -- cleanse scabbed area with soap and water daily. May leave open to air., 03/11/23 12:00:00 EST The Following Treatments Have Been Ordered for You Discharge Labs No qualifying data available. Discharge Radiology No qualifying data available. Other Therapies No qualifying data available. Post Acute Orders No qualifying data available. Allergies Naprosyn (Nausea) aspirin (NAUSEA) Medications Please [...] as needed for as needed for pain none today Unchanged acetaminophen-hydrocodone ([place] 325- 5 mg oral tablet) 1 tab(s) by mouth Every 6 hours as needed for for pain Headache Duration: 3 Days 03/11/23 at 12:30am Unchanged albuterol (Proventil HFA MDI (90 mcg/ inh) inhalation aerosol) 2 puff(s) by inhalation Every 4 hours as needed for as needed for wheezing Managed by pulmonology 03/11/23 at 10am Unchanged amLODIPine (amLODIPine 10 mg oral tablet) 1 tab(s) by mouth Once a day Duration: 30 Days none today Unchanged atogepant (Qulipta 60 mg oral tablet) 1 tab(s) by mouth Once a day none today Unchanged citalopram (CeleXA 40 mg oral tablet) 1 tab(s) by mouth Once a day Anxiety and depression Duration: 30 Days none today Unchanged fluticasone/ umeclidinium/ vilanterol (Trelegy Ellipta 100 mcg-62.5 mcg-25 mcg/ inh inhalation powder) 1 puff(s) by inhalation Once a day Asthma in adult Duration: 90 Days Managed by Pulmonology 03/11/23 at 0606am Unchanged gabapentin (gabapentin 100 mg oral capsule) 1 cap by mouth Three (3) times a day TAKE 1 CAPSULE BY MOUTH THREE TIMES DAILY 03/11/23 at 0843am Unchanged galcanezumab (Emgality Prefilled Pen 120 mg/ mL subcutaneous solution) Inject 120 mg every month by subcutaneous route. none Unchanged levothyroxine (levothyroxine 175 mcg (0.175 mg) oral tablet) 1 tab(s) by mouth Once a day before a meal 03/11/23 at 0600am Unchanged mupirocin topical (mupirocin 2% topical ointment) USE 1 Application two times daily DIRECTED none today Unchanged nortriptyline (nortriptyline 50 mg oral capsule) 1 cap by mouth Daily at bedtime none today Unchanged ondansetron (Zofran 4 mg oral tablet) 1 tab(s) by mouth Every 6 hours as needed for Nausea/Vomiting none today Unchanged progesterone (progesterone 200 mg oral capsule) 400 Milligram by mouth Daily at bedtime none today Unchanged rimegepant (Nurtec ODT 75 mg oral tablet, disintegrating) 1 tab(s) by mouth Every 24 hours as needed for as needed for migraine headache not to exceed 75 mg in 24 hours none today Unchanged tiZANidine (tiZANidine 4 mg oral capsule) 1 cap by mouth Two (2) times a day none today Unchanged traMADol (traMADol 50 mg oral tablet) 1 tab(s) by mouth Two (2) times a day 03/11/23 at 0843am Unchanged ubrogepant (Ubrelvy 100 mg oral tablet) 1 tab(s) by mouth Once as needed for as needed for migraine headache may repeat dose in 2 hours if needed. Max dose of 2 tabs in 24 hrs none today Unchanged valsartan (valsartan 320 mg oral tablet) 1 tab(s) by mouth Once a day Duration: 30 Days none today What How Much When Comments Stop Taking clindamycin (clindamycin 300 mg oral capsule) 1 cap by mouth Every 8 hours Please take this list to your next doctor s visit. Bring all medications you take, including over the counter medications, herbals and other supplements with you to your doctor s visit. Patients and families are reminded to discard old lists and to update any records with all medication providers or retail pharmacies. Education Materials Cellulitis, Adult Cellulitis is a skin infection. The infected area is often warm, red, swollen, and sore. It occurs most often in the arms and lower legs. It is very important to get treated for this condition. What are the causes? This condition is caused by bacteria. The bacteria enter through a break in the skin, such as a cut, burn, insect bite, open sore, or crack. What increases the risk? This condition is more likely to occur in people who: Have a weak body defense system (immune system). Have open cuts, watson, bites, or scrapes on the skin. Are older than 60 years of age. Have a blood sugar problem (diabetes). Have a long-lasting (chronic) liver disease (cirrhosis) or kidney disease. Are very overweight (obese). Have a skin problem, such as: ? Itchy rash (eczema). ? Slow movement of blood in the veins (venous stasis). ? Fluid buildup below the skin (edema). Have been treated with high-energy rays (radiation). Use IV drugs. What are the signs or symptoms? Symptoms of this condition include: Skin that is: ? Red. ? Streaking. ? Spotting. ? Swollen. ? Sore or painful when you touch it. ? Warm. A fever. Chills. Blisters. How is this diagnosed? This condition is diagnosed based on: Medical history. Physical exam. Blood tests. Imaging tests. How is this treated? Treatment for this condition may include: Medicines to treat infections or allergies. Home care, such as: ? Rest. ? Placing cold or warm cloths (compresses) on the skin. Hospital care, if the condition is very bad. Follow these instructions at home: Medicines Take [id number] and prescription medicines only as told by your doctor. If you were prescribed an antibiotic medicine, take it as told by your doctor. Do not stop taking it even if you start to feel better. General instructions Drink enough fluid to keep your pee (urine) pale yellow. Do not touch or rub the infected area. Raise (elevate) the infected area above the level of your heart while you are sitting or lying down. Place cold or warm cloths on the area as told by your doctor. Keep all follow-up visits as told by your doctor. This is important. Contact a doctor if: You have a fever. You do not start to get better after 1 2 days of treatment. Your bone or joint under the infected area starts to hurt after the skin has healed. Your infection comes back. This can happen in the same area or another area. You have a swollen bump in the area. You have new symptoms. You feel ill and have muscle aches and pains. Get help right away if: Your symptoms get worse. You feel very sleepy. You throw up (vomit) or have watery poop (diarrhea) for a long time. You see red streaks coming from the area. Your red area gets larger. Your red area turns dark in color. These symptoms may represent a serious problem that is an emergency. Do not wait to see if the symptoms will go away. Get medical help right away. Call your local emergency services (911 in the [place] Do not drive yourself to the hospital. Summary Cellulitis is a skin infection. The area is often warm, red, swollen, and sore. This condition is treated with medicines, rest, and cold and warm cloths. Take all medicines only as told by your doctor. Tell your doctor if symptoms do not start to get better after 1 2 days of treatment. This information is not intended to replace advice given to you by your health care provider. Make sure you discuss any questions you have with your health care provider. Document Released: 08/02/2008 Document Revised: 07/06/2018 Document Reviewed: 07/06/2018 [employer] Patient Education 2020 [employer] Additional Information VACCINATE! IT SAVES LIVES! Members of the community who have not yet received the COVID-19 vaccine and would like to receive it can visit one of [facility] vaccine clinics. There are many vaccine clinic locations within the [facility]. For locations and available times, please visit https://gettheshot.coronavirus.o hio.gov/. It is important to note that some COVID mobile vaccine clinics are held outdoors and may be canceled in rainy or stormy conditions. To learn more about pediatric vaccinations (ages 5-11), we invite you to visit the [facility] webpage. [email or web address]/p [email or web address] To learn more about the COVID-19 vaccine, we invite you to visit the CDC website for a list of frequently asked questions.https://www.cdc.gov/co ronavirus/2019-ncov/vaccines/faq .html [facility] Patient Portal Access Instructions: Stay connected with your healthcare team and access your personal medical information anytime with the [facility] Patient Portal. Please follow the directions below to create your [facility] account: 1.Access the email account you provided upon registration to the hospital/physician office.2.Look for an invitation email from [facility].3.Open the email and access the invitation link: Accept Invitation to [facility].4.Fill in the required lee to create your account. To access your account, visit [email or web address]. Click the blue button labeled Access Patient Portal and then log in with the username and password that you created in the steps above. You will be able to view your test results, lab results, a summary of your visits, upcoming appointments and more. There is also a convenient messaging option where you can send secure messages to your provider. In addition, you will have the ability to download any documents or summaries to your computer and/or send the information securely to a physician. Remember that your healthcare information is confidential, so carefully consider who you will allow to register on the [facility] Patient Portal for access to your information. You can also access the [facility] Patient Portal on the [employer] leigh. Simply click on Patient Portal and then log into your account. If you would like to receive a full copy of your medical records, please contact the [facility] Medical Records Department by calling [phone], Tuesday through Tuesday between 8 a.m. and 4:30 p.m. HOW TO SAFELY DISPOSE OF PRESCRIPTION MEDICATIONS [...] Call your local pharmacy or go to [email or web address].Favor/[email or web address] to find one close to you.3.Make use of household items: Use cat litter or old coffee grounds to dispose medications if other options are not available. Mix your drugs with these household products, seal them in an airtight container and throw it into the garbage. Call [facility]: [phone] to be sure your drugs can be disposed of in this way. Some medicines may require a different approach.4.Never flush your medications down the toilet. IF YOU HAVE BEEN PRESCRIBED AN OPIOID FOR PAIN If you have been prescribed [...] have withdrawal symptoms when a medication is stopped, can develop within a few days. KNOW [...] children, family, friends and visitors). The last page of this document has been signed and retained as a CHART COPY. Signatures Patient Education Materials Cellulitis, Adult, Dnia-sp-Bgkr Medication Leaflets My discharge plan and instructions have been reviewed and explained to me and I,KAMALA GRAY understand my current condition and have read and understand these discharge instructions. I have received a written copy of the plan/instructions. If I have questions, I am aware that I should contact my doctor. Patient/Charrer Signature: Date/Time: Relationship to Patient: Witness Name/Signature: Date/Time: [facility] 03-10-2023 Note Date of Service 03/10/2023 Chief Complaint Patient complains of right-sided lower leg pain that she states started 2 weeks ago after she fell. History of Present Illness Patient is a 52-year-old female, who follows with Dr. Aram Johnson with a past medical history significant for hypertension, type 2 diabetes, morbid obesity, obstructive sleep apnea, and anemia, presents to [facility] emergency department with the chief complaint of right lower extremity pain. Patient states that she fell about 2 weeks ago and sustained a laceration to her scalp as well as an injury to her right lower extremity. She reports that she was seen in the ED and had about 28 sutures placed to her head laceration. In reviewing patient's multiple ED visits at [facility], there is no mention of a visit with a scalp laceration. She has presented to [facility] multiple times including 03/01 and 03/02 after falling at home. There is no mention of a scalp laceration in either of those ED summaries. She did mention injuring her right lower extremity after the 03/01 visit. Patient was prescribed cephalexin on 03/04 by a [facility] ED physician but this antibiotic was not filled until 03/08. She was also given a prescription for clindamycin on 03/08 by another provider. Patient denies any fever, chills, cough, shortness of breath, chest pain, abdominal pain, nausea or dysuria. In the emergency department, x-ray of the right tibia/fibula revealed no acute osseous abnormality. Question soft tissue defect at the level of the proximal tibia anteriorly. There appears to be a radiopaque density at the inferior margin of this defect. This is unclear if it is a vascular calcification or from prior insult. White blood cell count 11.6. CBC remarkable for hemoglobin 11.2 and hematocrit 33.7. BMP significant for glucose 109, BUN 6 and creatinine 1.10. Patient was administered 1 liter of NS, 1 gram ceftriaxone IV and 1 gram vancomycin IV in the ED. The case was discussed with the ED physician who recommended admission due to right lower extremity cellulitis that failed outpatient treatment. She was transferred to medical surgical unit for observation. We will continue ceftriaxone 2 grams IV daily. We will monitor the area in question for worsening/improvement. Repeat CBC and BMP in the am. Patient seen and evaluated this morning while resting in bed. She continues to endorse pain in her right lower extremity. Bandage removed from right lower extremity and a quarter-sized scabbed area noted with only minor erythema surrounding the scab. Physical exam otherwise unremarkable. Patient advised that this area of cellulitis appears to be minor and she will likely be ready for discharge tomorrow. All questions answered. Review of Systems Review of Systems: Reviewed in detail, including general health, HEENT, cardiovascular, respiratory, gastrointestinal, genitourinary, endocrine, musculoskeletal, neurologic, vascular, skin, and psychiatric. All are negative except for those listed in the History of Present Illness. Physical Exam Vitals and Measurements T: 36.5 C (Oral) TMIN: 36.4 C (Oral) TMAX: 36.8 C (Oral) HR: 78(Monitored) RR: 16 BP: 140/83 SpO2: 93% HT: 162 cm WT: 130.6 kg BMI: 49.8 Weight Current Weight Dosing Weight: 130.7 kg (03/09/23) Current Weight: 130.6 kg (03/10/23) General: No acute distress. Patient is alert, chronically ill-appearing. Skin: No rash. Skin is warm, dry and intact. HEENT: Head is normocephalic, atraumatic. Pupils are equal, round and reactive. Neck: Supple. No lymphadenopathy, thyromegaly. Lungs: Bilaterally clear but diminished without crepitation or wheeze. Unlabored. Heart: Heart is regular rhythm, S1, S2. No murmurs, gallops or rubs. Abdomen: Abdomen is soft, nontender. Bowels sounds present in all quadrants. Extremities: No clubbing, cyanosis, or edema. Peripheral pulses palpable. No calf tenderness. Quarter-sized scabbed wound noted on right lower extremity with only minor erythema surrounding it. Neurological: Patient is awake and alert to person, place and time. Following simple commands, moving all extremities. Lab Results 03/10 05:40 WBC: 9.9 Hgb: 10.2 L Hct: 30.7 L Platelet: 328 Neutrophil %: 67.4 Glucose Level: 128 H Sodium Level: 138 Potassium Level: 3.9 BUN: 6 L Creatinine Lvl (s): 1.10 H 03/09 18:35 WBC: 11.6 H Hgb: 11.2 L Hct: 33.7 L Platelet: 432 H Neutrophil %: 68.5 Glucose Level: 109 H Sodium Level: 137 Potassium Level: 3.9 BUN: 6 L Creatinine Lvl (s): 1.10 H Imaging Results and Diagnostics XR Tibia/Fibula 2 Views Right Result Date: March 09, 2023 Verified By: NICOLÁS HILLMAN MD CLINICAL STATEMENT: IMPRESSION: No acute osseous abnormality. Question soft tissue defect at the level of the proximal tibia anteriorly. There appears to be a radiopaque density at the inferior margin of this defect. This is unclear if it is a vascular calcification or from prior insult, clinical correlation will be necessary. I have personally reviewed the images of this examination and agree with the resident's findings and interpretation. Assessment/Plan 1. Cellulitis of leg Acute, new onset after a fall two weeks ago, minor. 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 Will continue Ceftriaxone 2 grams IV daily. Monitor the area for worsening/improvement. Repeat CBC in the am. 2. DM type 2, goal HbA1c < 7.5% Chronic. Blood sugar checks before meals and at bedtime. Cover with corrective sliding scale insulin. ADA diet. Blood sugar goal of 180 or less and avoid hypoglycemia. 3. Obstructive sleep apnea, adult Chronic. Patient wears home Bipap at bedtime but is not sure anyone can bring it in. Will use [facility] bipap if unable to get her own bipap here. 4. Asthma in adult Chronic. Start duoneb aerosols as needed for shortness of breath/wheezing. 5. Anxiety and depression Chronic. Continue current home medications. DVT prophylaxis with lovenox sc. Code status: Full Code. Labs, diagnostic test and progress notes reviewed as noted in HPI. Plan of care discussed with patient. All questions answered. Patient verbalizes understanding and is agreeable with plan of care. This case was discussed with collaborating physician, Dr. Elian Hernandez. 55 minutes spent reviewing past diagnostic tests, reviewing lab results, vital sign trends, medical history, reviewing medications and ordering home medications, examining patient, discussed plan of care with nursing and social science manager, collaborating with physician, and documenting in chart. Problem List/Past Medical History Ongoing Anemia, macrocytic Anxiety and depression Arthritis Asthma in adult B12 deficiency Celiac disease Cholelithiasis Chronic back pain Chronic post-concussive headache Constipation in female Dizziness and giddiness DM type 2, goal HbA1c < 7.5% GERD (gastroesophageal reflux disease) Gout Headache Hearing loss in right ear Heart murmur, 2/6 Hepatic steatosis HTN, goal below 140/90 Hydronephrosis of right kidney Hypercholesterolemia Hypothyroidism, adult Iron deficiency anemia, unspecified Migraine Morbid obesity Non-smoker Non-smoker Obstructive sleep apnea, adult Restless leg syndrome Seasonal allergies Thyroid orbitopathy Vitamin D deficiency Historical Acute back pain Acute URI Overweight SOB (shortness of breath) on exertion Vaginal bleeding Vertigo Procedure/Surgical History Cardiac catheterization: 09/2020 section Cystoscopic lithotripsy of ureteric calculus CTR - carpal tunnel release Medications Home Medications (20) Active amLODIPine 10 mg oral tablet 10 mg = 1 tab(s), Oral, qDay CeleXA 40 mg oral tablet 40 mg = 1 tab(s), Oral, qDay clindamycin 300 mg oral capsule 300 mg = 1 cap(s), Oral, q8h Emgality Prefilled Pen 120 mg/mL subcutaneous solution gabapentin 100 mg oral capsule 100 mg = 1 cap(s), Oral, TID levothyroxine 175 mcg (0.175 mg) oral tablet 175 mcg = 1 tab(s), Oral, qDayAC mupirocin 2% topical ointment [place] 325- 5 mg oral tablet 1 tab(s), PRN, Oral, q6h nortriptyline 50 mg oral capsule 50 mg = 1 cap(s), Oral, qHS Nurtec ODT 75 mg oral tablet, disintegrating 75 mg = 1 tab(s), PRN, Oral, q24h progesterone 200 mg oral capsule 400 mg, Oral, qHS Proventil HFA MDI (90 mcg/inh) inhalation aerosol 2 puff(s), PRN, Inhalation, q4h Qulipta 60 mg oral tablet 60 mg = 1 tab(s), Oral, qDay tiZANidine 4 mg oral capsule 4 mg = 1 cap(s), Oral, BID traMADol 50 mg oral tablet 50 mg = 1 tab(s), Oral, BID Trelegy Ellipta 100 mcg-62.5 mcg-25 mcg/inh inhalation powder 1 puff(s), Inhalation, qDay Tylenol Extra Strength 500 mg oral tablet 3 tab, PRN, Oral, q6hr Ubrelvy 100 mg oral tablet 100 mg = 1 tab(s), PRN, Oral, Once valsartan 320 mg oral tablet 320 mg = 1 tab(s), Oral, qDay Zofran 4 mg oral tablet 4 mg = 1 tab(s), PRN, Oral, q6h Allergies Naprosyn (Nausea) aspirin (NAUSEA) Social History Smoking Status - 04/07/2016 Never smoker Alcohol Use: Never., 11/25/2018 Home/Environment Living situation: Home/Independent. Domestic Concerns: None. 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 Current Home Treatments Blood Glucose monitoring, Bipap. Professional Skilled Services or Special Community Resources None. Spouse Name: Elian. Marital Status: ., 03/09/2023 Nutrition/Health Type of diet: Regular. Appetite Fair. Eating Difficulties None. Caffeine intake amount: soda x 1/day., 06/09/2021 Substance Abuse Use: pt denies., 02/28/2023 Use: Current. Type: Marijuana., 01/05/2022 Tobacco Tobacco Use: Never (less than 100 in lifetime), No tobacco/smoke exposure., 11/25/2018 Family History Cancer: Brother.Negative: Mother. High blood pressure: Mother and Father. Immunizations No qualifying data available. Code Status Code Status - Ordered -- 03/09/23 18:27:00 EST, Full Code, Constant Order Digitally Signed by ELY LANE on 03/10/2023 02:57 PM [facility] 03-10-2023 Evaluation + Plan note Extrac cristian from: Title:History and Physical Author:ELY LANE Date:03/10/23 1. Cellulitis of leg Acute, new onset after a fall two weeks ago, minor. 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 Will continue Ceftriaxone 2 grams IV daily. Monitor the area for worsening/improvement. Repeat CBC in the am. 2. DM type 2, goal HbA1c < 7.5% Chronic. Blood sugar checks before meals and at bedtime. Cover with corrective sliding scale insulin. ADA diet. Blood sugar goal of 180 or less and avoid hypoglycemia. 3. Obstructive sleep apnea, adult Chronic. Patient wears home Bipap at bedtime but is not sure anyone can bring it in. Will use [facility] bipap if unable to get her own bipap here. 4. Asthma in adult Chronic. Start duoneb aerosols as needed for shortness of breath/wheezing. 5. Anxiety and depression Chronic. Continue current home medications. DVT prophylaxis with lovenox sc. Code status: Full Code. Labs, diagnostic test and progress notes reviewed as noted in HPI. Plan of care discussed with patient. All questions answered. Patient verbalizes understanding and is agreeable with plan of care. This case was discussed with collaborating physician, Dr. Elian Hernandez. 55 minutes spent reviewing past diagnostic tests, reviewing lab results, vital sign trends, medical history, reviewing medications and ordering home medications, examining patient, discussed plan of care with nursing and social science manager, collaborating with physician, and documenting in chart. Future Scheduled Tests Laboratory* Iron Level 11/20/22 * Thyroid Stimulating Hormone 11/20/22 * Free T4 11/20/22 * A1C Hemoglobin 11/20/22 * Complete Blood Count 11/20/22 * Lipid Profile 11/20/22 * Albumin/Creatinine Ratio, Random Urine 11/20/22 * Microalbumin Level Urine 05/17/22 * Vitamin D Level 11/20/22 * Complete Metabolic Panel 11/20/22 * TIBC 11/20/22 [facility] 01-10-2024 Note ORIGINAL EXAMINATION: 2 XRAY VIEWS OF THE TIBIA FIBULA COMPARISON: None. HISTORY: ORDERING SYSTEM PROVIDED HISTORY: Reason for Exam: Pain. Nonhealing wound anterior mid right tib fib status post injury 2 weeks ago. FINDINGS: No acute fracture or dislocation. Suspect soft tissue defect seen at the level of the proximal tibia anteriorly with overlying bandage. There appears to be a radiopaque density measuring approximately 0.3 cm inferior and deep to the soft tissue defect. The suboptimally visualized knee and ankle appear grossly intact. Vascular calcifications. IMPRESSION: No acute osseous abnormality. Question soft tissue defect at the level of the proximal tibia anteriorly. There appears to be a radiopaque density at the inferior margin of this defect. This is unclear if it is a vascular calcification or from prior insult, clinical correlation will be necessary. I have personally reviewed the images of this examination and agree with the resident's findings and interpretation. Interpreted by: Nicolás Hillman Preliminary Report By: Etienne Grace Electronically signed By Nicolás Hillman Dictated Date: 03/09/2023 7:19:15 PM Prelim Date: 03/09/2023 7:27:06 PM Sign Date: 03/09/2023 7:30:04 PM [facility]ing [facility] NoteHNO ID: [id number] Author: WHITLEY HSIEH APRN.WRAPPING CLERK Service: ? Author Type: Nurse Practitioner Type: Progress Notes Filed: 03/08/2023 14:49 Note Text: Subjective HPI Kamala Gray is a 52 year old female who presents with an infection on her right lower leg that has been present for 2 weeks. She has taken 2 rounds of cephalexin and it has not gotten any better. Her pain is worse and keeps her up at night. The wound has been draining a large amount of yellow drainage. She has not had a fever. Review of Systems Constitutional: Negative for chills and fever. Respiratory: Negative. Cardiovascular: Negative. Musculoskeletal: See HPI Skin: Negative for itching and rash. See HPI BP 124/86 Pulse 102 Temp 36.6 ?C (97.9 ?F) Resp 18 Wt 131.5 kg (290 lb) LMP (LMP Unknown) SpO2 95% PAST MEDICAL HISTORY Diagnosis Date Asthma with COPD Celiac disease CKD (chronic kidney disease) Diabetes mellitus type 2 (HCC) Gout Hyperlipidemia Hypertension Hypothyroidism Microcytic anemia Obesity, Class III, BMI 40-49.9 (morbid obesity) (HCC) Renal calculi No past surgical history on file. ALLERGIES Hydrochlorothiazide, Naproxen, and Asa [Salicylates] MEDICATIONS magnesium oxide 200 mg magnesium tab Take 1 tablet by mouth daily at bedtime. atogepant (QULIPTA) 30 mg tablet Take by mouth. budesonide-formoterol (SYMBICORT) 160-4.5 mcg/actuation inhaler Inhale 2 Puffs as instructed. fremanezumab-vfrm (AJOVY AUTOINJECTOR) 225 mg/1.5 mL auto-injector Inject 225 mg subcutaneously once every month. Do not shake. nystatin (MYCOSTATIN) powder Apply 1 application to affected area three times daily. TRELEGY ELLIPTA 100-62.5-25 mcg INHALE 1 PUFF DAILY with good oral care levothyroxine (SYNTHROID) 300 mcg tablet Take by mouth. Not taking acetaminophen(TYLENOL 325 MG TAB) progesterone micronized (PROMETRIUM) 200 mg capsule benzonatate (TESSALON PERLES) 100 mg capsule Take 2 capsules by mouth three times daily as needed. (Patient not taking: Reported on 03/08/2023) ondansetron orally disintegrating (ZOFRAN ODT) 4 mg disintegrating tablet Take 1 tablet by mouth every 6 hours as needed for nausea/vomiting. (Patient not taking: Reported on 03/08/2023) guaiFENesin (MUCINEX FAST-MAX CHEST-CONGEST) 100 mg/5 mL syrup Take 20 mL by mouth every 4 hours as needed. (Patient not taking: Reported on 03/08/2023) megestrol (MEGACE) 40 mg tablet Take 40 mg by mouth once daily. (Patient not taking: Reported on 03/08/2023) No family history on file. Social History Tobacco Use Smoking status: Never Smokeless tobacco: Never Substance Use Topics Alcohol use: No Drug use: Never Objective Physical Exam Vitals and nursing note reviewed. Constitutional: General: She is not in acute distress. Appearance: Normal appearance. She is obese. Cardiovascular: Rate and Rhythm: Normal rate. Pulmonary: Effort: Pulmonary effort is normal. Skin: General: Skin is warm and dry. Findings: Erythema present. No rash. Neurological: Mental Status: She is alert. ASSESSMENT/PLAN: 1. Open wound of skin - ICD9: 879.8, ICD10: T14.8XXA - patient referred to ER. Pain is uncontrolled at this point and patient has failed outpatient antibiotic therapy. She is agreeable and will go to [facility]. Report sent to [facility] ER via ER passport. Whitley Hsieh APRN.[facility]01-06-2024 Hospital Discharge instructions Patient Education 03/05/2023 12:20:16 [...] swollen, warm, and sore. The reddened areas havea visible border. An open sore may leak [...] or higher after 2 days on antibiotics 3919-5272 [employer]. [address] [place] [address]. All rights reserved. This information is not intended as a substitute for professional medical care. Always follow yourhealthcare professional's instructions. Follow Up Care 03/05/2023 09:32:15 With:ARAM JOHNSON DO Address: [address] [place] [phone]- [phone] When:2-4 days [facility] 01-06-2024 Emergency department Discharge summary Discharge Instructions Thank you for allowing [facility] to assist you with your healthcare needs. The following is importantdischarge information regarding your hospital visit. Diagnosis from Today's Visit Lower leg pain-swelling What to Do Next Instructions from Your Care Team No qualifying data available. Post Acute Orders No qualifying data available. You Need to Schedule the Following Appointments Follow Up with ARAM JOHNSON DO When Within 2-4 days Where: [address] [place] [address]- [phone] Allergies Naprosyn (Nausea) aspirin (NAUSEA) Medications Please ask your primary doctor or pharmacist before taking any other medication not listed, including over the counter drugs, herbal medications, vitamins and or supplements as they may interact withur home medications. What How Much When Why [...] for as needed for pain Unchanged acetaminophen-hydrocodone ([place] 325- 5 mg oral tablet) 1 tab(s) [...] Vaginal bleeding Duration: 90 Days Managed by OB-CHIEF COMPLIANCE OFFICER Unchanged nortriptyline (nortriptyline 50 mg oral [...] may report side effects to FDA at [phone]. What other drugs will affect cephalexin? Tell your doctor about all your other medicines, especially: metformin; or probenecid. This list is not complete. Other drugs may affect cephalexin, including prescription and nivy-nph-roungpu medicines, vitamins, and herbal products. Not all [...] to ensure that the information provided by [employer]. [employer]') is accurate, up-to-date, and complete, but no guarantee is made to that effect. Drug information contained herein may be time sensitive. [employer] information has been compiled for use by healthcare practitioners and consumers in the [place] and therefore [employer] does not warrant that uses outside of the [place] are appropriate, unless specifically indicated otherwise. [employer] drug information does not endorse drugs, diagnose patients or recommend therapy. [employer] drug information isan informational resource designed to assist licensed healthcare practitioners in caring for their p atients and/or to serve consumers viewing this service as a supplement to, and not a substitute for, the expertise, skill, knowledge and judgment of healthcare practitioners. The absence of a warningfor a given drug or drug combination in no way should be construed to indicate that the drug or drug combination is safe, effective or appropriate for any given patient. [employer] does not assume any responsibility for any aspect of healthcare administered with the aid of information [employer] provides. The information contained herein is not intended to cover all possible uses, directions, precautions, warnings, drug interactions, allergic reactions, or adverse effects. If you have questions about the drugs you are taking, check with your doctor, nurse or pharmacist. Copyright 7712-0096 [employer]. Version: 12.. Revision Date: 09/29/2022. Education Materials [...] swollen, warm, and sore. The reddened areas havea visible border. An open sore may leak [...] or higher after 2 days on antibiotics 7615-1222 [employer]. [address] [place] [address], [place] [address]. All rights reserved. This information is not intended as a substitute for professional medical care. Always follow yourhealthcare professional's instructions. Additional Information VACCINATE! IT SAVES LIVES! Members of the community who have not yet received the COVID-19 vaccine and would like to receive it can visit one of [facility] vaccine clinics. There are many vaccine clinic locations within the [facility]. For locations and available times, please visit [email or web address]/. It is important to note that some COVID mobile vaccine clinics are held outdoors and may be canceled in rainy or stormy conditions. To learn more about pediatric vaccinations (ages 5-11), we invite you to visit the [facility] webpage. [email or web address]/pages/[email or web address]-Liucf-Fog stions.htmlTo learn more about the COVID-19 vaccine, we invite you to visit the CDC website for a list of frequently asked questions. https://www.cdc.gov/coronavirus/2019-ncov/vaccines/faq.html [facility] Patient Portal Access Instructions: Stay connected with your healthcare team and access your personal medical information anytime with the [facility] Patient Portal. If you would like a full copy of your medical records please contact the [facility] Medical Records Department Tuesday through Tuesday between 8a.m. and 4:30p.m. Please follow the directions below to access the portal: 1.Access the email account you provided upon registration to the [facility].2.Look for an invitation email from [facility].3.Open the email and access the invitation link: Accept Invitation to [facility]4.Fill in the required lee to create your [...] you will allow to register on the [facility] Patient Portal for access to your information. You can also access the [facility] Patient Portal on the [employer]. Simply click on Health Records under [employer] and then click on the [facility] logo. HOW TO SAFELY DISPOSE OF PRESCRIPTION MEDICATIONS Please use one of the following methods to safely dispose of your unused medications. 1.Use a drug disposal kit: the drug disposal pouch allows you to safely discard your old and unuseddrugs. Ask your nurse to give you one when you are discharged.2.Visit a local take-back location: Many local pharmacies and police departments have programs that collect old and unwanted prescriptiondrugs. Call your local pharmacy or go to http://Flowgram.Favor/7B3Us1g to find one close to you.3.Make use of household items: Use cat litter or old coffee grounds to dispose medications if other options arenot available. Mix your drugs with these household products, seal them in an airtight container andthrow it into the garbage. Call [facility]: [phone] to be sure your drugs can be [...] drowsiness, such as benzodiazepines, also known as benzos,including diazepam and alprazolam, muscle relaxants or sleep aids. Never sell or share prescriptionopioids. This is illegal. Store opioids in a [...] aware that I should contact my doctor. Patient/Charrer Signature: Date/Time: Relationship to Patient: Witness Name/Signature: Date/Time: [facility]01-05-2024 NoteHNO ID: [id number] Author: TRACEE CHAKRABORTY APRN.WRAPPING CLERK Service: ? Author Type: Nurse Practitioner Type: [...] for CT and further management Tracee Chakraborty APRN.[facility]01-01-2024 Hospital Discharge instructions Patient Education 02/28/2023 12:49:36 [...] like electrolyte solutions, soft drinks without caffeine, mineralwater (plain or flavored), clear fruit juices, and [...] you feel better and your symptoms ease. 1594-8140 [employer]. [address] [place] [address], [place] [address]. All rights reserved. This information is not intended as a substitute for professional medical care. Always follow yourhealthcare professional's instructions. Follow Up Care 02/28/2023 12:09:26 With:ARAM JOHNSON DO Address: [address] [place] [phone]- [phone] When:2-4 days [facility] 01-01-2024 Note Discharge Instructions Thank you for allowing [facility] to assist you with your healthcare needs. The following is importantdischarge information regarding your hospital visit. Diagnosis from Today's Visit Arm pain-swelling Diarrhea Diarrhea Leg wound What to Do Next Instructions from Your Care Team No qualifying data available. Post Acute Orders No qualifying data available. You Need to Schedule the Following Appointments Follow Up with ARAM JOHNSON DO When Within 2-4 days Where: [address] [place] [address]- [phone] Allergies Naprosyn (Nausea) aspirin (NAUSEA) Medications Please ask your primary doctor or pharmacist before taking any other medication not listed, including over the counter drugs, herbal medications, vitamins and or supplements as they may interact withyour home medications. What How Much When Why [...] for as needed for pain Unchanged acetaminophen-hydrocodone ([place] 325- 5 mg oral tablet) 1 tab(s) [...] Vaginal bleeding Duration: 90 Days Managed by OB-CHIEF COMPLIANCE OFFICER Unchanged nortriptyline (nortriptyline 50 mg oral [...] provided dosing device provided to measure an infant's dose. Acetaminophen comes in many different forms [...] Help line at . An overdose can befatal. Overdose symptoms include vomiting, stomach pain, and [...] may report side effects to FDA at 7-568-VKC-9632. What other drugs will affect acetaminophen? Other drugs may affect acetaminophen, including prescription and yjcp-tcw-qklipwy medicines, vitamins, and herbal products. Tell your [...] to ensure that the information provided by [employer]. [employer]') is accurate, up-to-date, and complete, but no guarantee is made to that effect. Drug information contained herein may be time sensitive. [employer] information has been compiled for use by healthcare practitioners and consumers in the [place] and therefore [employer] does not warrant that uses outside of the [place] are appropriate, unless specifically indicated otherwise. [employer] drug information does not endorse drugs, diagnose patients or recommend therapy. [employer]iwons drug information isan informational resource designed to assist licensed healthcare practitioners in caring for their p atients and/or to serve consumers viewing this service as a supplement to, and not a substitute for, the expertise, skill, knowledge and judgment of healthcare practitioners. The absence of a warningfor a given drug or drug combination in no way should be construed to indicate that the drug or drug combination is safe, effective or appropriate for any given patient. [employer] does not assume any responsibility for any aspect of healthcare administered with the aid of information [employer] provides. The information contained herein is not intended to cover all possible uses, directions, precautions, warnings, drug interactions, allergic reactions, or adverse effects. If you have questions about the drugs you are taking, check with your doctor, nurse or pharmacist. Copyright 1916-0616 [facility] [employer]. Version: 25.. Revision Date: 09/27/2022. loperamide (maria e PER a mide) Imodium, Imodium A-D, Imodium A-D New Formula What is the most important information I should know about loperamide? You should not use loperamide if you have ulcerative colitis, bloody or tarry stools, diarrhea witha high fever, or diarrhea caused by antibiotic medication. Loperamide is safe when used as directed. TAKING TOO MUCH LOPERAMIDE CAN CAUSE SERIOUS HEART PROBLEMS OR . Serious heart problems may also happen if you take loperamide with other medicines. Ask a doctor orpharmacist about safely using medications together. Do not [...] the same strengths. Carefully follow all dosing instructionsfor the medicine you are using. Store at [...] a daily dosing schedule. Call your doctor ifyour symptoms do not improve after using this [...] reaction (fever, sore throat, burning in your eyes,skin pain, red or purple skin rash that [...] may report side effects to FDA at 6-467-MIA-7962. What other drugs will affect loperamide? Sometimes it is not safe to use certain medications at the same time. Some drugs can affect your blood levels of other drugs you take. Ask a doctor or pharmacist about safely using medications together. Loperamide can cause a serious heart problem. Your risk may be higher if you also use certain othermedicines for infections, heart problems, depression, mental illness, cancer, malaria, or HIV. Many drugs can affect loperamide. This includes prescription and bymh-buj-zgunych medicines, vitamins, and herbal products. Not all [...] to ensure that the information provided by [employer]. ('[employer]') is accurate, up-to-date, and complete, but no guarantee is made to that effect. Drug information contained herein may be time sensitive. [employer] information has been compiled for use by healthcare practitioners and consumers in the [place] and therefore [employer] does not warrant that uses outside of the [place] are appropriate, unless specifically indicated otherwise. [employer]ons drug information does not endorse drugs, diagnose patients or recommend therapy. [employer]ons drug information isan informational resource designed to assist licensed healthcare practitioners in caring for their p atients and/or to serve consumers viewing this service as a supplement to, and not a substitute for, the expertise, skill, knowledge and judgment of healthcare practitioners. The absence of a warningfor a given drug or drug combination in no way should be construed to indicate that the drug or drug combination is safe, effective or appropriate for any given patient. [employer] does not assume any responsibility for any aspect of healthcare administered with the aid of information [employer] provides. The information contained herein is not intended to cover all possible uses, directions, precautions, warnings, drug interactions, allergic reactions, or adverse effects. If you have questions about the drugs you are taking, check with your doctor, nurse or pharmacist. Copyright 3745-2566 [facility] [employer]. Version: 12.30. Revision Date: 11/17/2022. Education Materials [...] like electrolyte solutions, soft drinks without caffeine, mineralwater (plain or flavored), clear fruit juices, and [...] you feel better and your symptoms ease. 4332-8652 [employer]. [address] [place] [address], [place] [address]. All rights reserved. This information is not intended as a substitute for professional medical care. Always follow yourhealthcare professional's instructions. Additional Information VACCINATE! IT SAVES LIVES! Members of the community who have not yet received the COVID-19 vaccine and would like to receive it can visit one of [facility] vaccine clinics. There are many vaccine clinic locations within the [facility]. For locations and available times, please visit www.[email or web address]/. It is important to note that some COVID mobile vaccine clinics are held outdoors and may be canceled in rainy or stormy conditions. To learn more about pediatric vaccinations (ages 5-11), we invite you to visit the [facility] webpage. https://www.[email or web address]/pages/[email or web address]-Htzcu-Puspgtjfzkg-Aqzddkdmcu-Wskms-[email or web address] stions.htmlTo learn more about the COVID-19 vaccine, we invite you to visit the CDC website for a list of frequently asked questions. https://www.cdc.gov/coronavirus/2019-ncov/vaccines/faq.html [facility] Patient [facility] Access Instructions: Stay connected with your healthcare team and access your personal medical information anytime with the [facility] Patient Portal. If you would like a full copy of your medical records please contact the [facility] Medical Records Department Tuesday through Tuesday between 8a.m. and 4:30p.m. Please follow the directions below to access the portal: 1.Access the email account you provided upon registration to the [facility].2.Look for an invitation email from [facility].3.Open the email and access the invitation link: Accept [facility]itation to [facility].Fill in the required lee to create your [...] you will allow to register on the [facility] Patient Portal for access to your information. You can also access the [facility] Patient Portal on the [employer]. Simply click on Health Records under [employer] and then click on the [facility] logo. HOW TO SAFELY DISPOSE OF PRESCRIPTION MEDICATIONS Please use one of the following methods to safely dispose of your unused medications. 1.Use a drug disposal kit: the drug disposal pouch allows you to safely discard your old and unuseddrugs. Ask your nurse to give you one when you are discharged.2.Visit a local take-back location: Many local pharmacies and police departments have programs that collect old and unwanted prescriptiondrugs. Call your local pharmacy or go to http://Flowgram.Favor/8Q9Is3e to find one close to you.3.Make use of household items: Use cat litter or old coffee grounds to dispose medications if other options arenot available. Mix your drugs with these household products, seal them in an airtight container andthrow it into the garbage. Call [facility]: [phone] to be sure your drugs can be [...] drowsiness, such as benzodiazepines, also known as benzos,including diazepam and alprazolam, muscle relaxants or sleep aids. Never sell or share prescriptionopioids. This is illegal. Store opioids in a [...] aware that I should contact my doctor. Patient/Charrer Signature: Date/Time: Relationship to Patient: Witness Name/Signature: Date/Time: [facility]12-31-2023 Hospital Discharge instructions Patient Education 02/27/2023 06:24:39 Dizziness, Uncertain Cause Dizziness (Uncertain Cause) Dizziness is a common symptom. It may be described as lightheadedness, spinning, or feeling like you are going to faint. Dizziness can have many causes. Be sure to tell the healthcare provider about: All medicines you take, including prescription, qlrj-vvu-ihfjriz, herbs, and supplements Any other symptoms you [...] Chest, arm, neck, back, or jaw pain 2174-[address] [employer] [place] [address]. All rights reserved. This information is not intended as a substitute for professional medical care. Always follow yourhealthcare professional's instructions. Follow Up Care 02/27/2023 05:53:35 With:ARAM JOHNSON DO Address: [address] [place] [phone]- [phone] When:2-4 days [facility] 12-31-2023 Note Discharge Instructions Thank you for allowing [facility] to assist you with your healthcare needs. The following is importantdischarge information regarding your hospital visit. Diagnosis from Today's Visit Dizziness Medication overdose What to Do Next Instructions from Your Care Team No qualifying data available. Post Acute Orders No qualifying data available. You Need to Schedule the Following Appointments Follow Up with ARAM JOHNSON DO When Within 2-4 days Where: [address] [place] [address], [place] [address] [phone] Allergies Naprosyn (Nausea) aspirin (NAUSEA) Medications Please ask your primary doctor or pharmacist before taking any other medication not listed, including over the counter drugs, herbal medications, vitamins and or supplements as they may interact withur home medications. What How Much When Why Instructions Last Dose Unchanged acetaminophen (Tylenol Extra Strength 500 mg oral tablet) 3 tab by mouth Every 6 hours as needed for as needed for pain Unchanged acetaminophen-hydrocodone ([place] 325- 5 mg oral tablet) 1 tab(s) [...] Vaginal bleeding Duration: 90 Days Managed by OB-CHIEF COMPLIANCE OFFICER Unchanged nortriptyline (nortriptyline 50 mg oral [...] about: All medicines you take, including prescription, rkgv-rcw-qjupszq, herbs, and supplements Any other symptoms you [...] Chest, arm, neck, back, or jaw pain [phone] [employer]. [address] [place] [address], [place] [address]. All rights reserved. This information is not intended as a substitute for professional medical care. Always follow yourhealthcare professional's instructions. Additional Information VACCINATE! IT SAVES LIVES! Members of the community who have not yet received the COVID-19 vaccine and would like to receive it can visit one of [facility] vaccine clinics. There are many vaccine clinic locations within the [facility]. For locations and available times, please visit www.[email or web address].[place].gov/. It is important to note that some COVID mobile vaccine clinics are held outdoors and may be canceled in rainy or stormy conditions. To learn more about pediatric vaccinations (ages 5-11), we invite you to visit the [facility] webpage. https://www.[facility]s.org/pages/9221-Qkcxy-Zgiqxjpxaag-Axpsuwxwjk-Cgyze-Ura stions.htmlTo learn more about the COVID-19 vaccine, we invite you to visit the CDC website for a list of frequently asked questions. https://www.cdc.gov/coronavirus/2019-ncov/vaccines/faq.html [facility] Patient Portal Access Instructions: Stay connected with your healthcare team and access your personal medical information anytime with the [facility] Patient Portal. If you would like a full copy of your medical records please contact the [facility] Medical Records Department Tuesday through Tuesday between 8a.m. and 4:30p.m. Please follow the directions below to access the portal: 1.Access the email account you provided upon registration to the hospital.2.Look for an invitation email from [facility].3.Open the email and access the invitation link: Accept Invitation to [facility]4.Fill in the required lee to create your account. Sign into [email or web address] with your username and password that you [...] you will allow to register on the [facility] Patient Portal for access to your information. You can also access the [facility] Patient Portal on the Kutoto. Simply click on Health Records under [employer] and then click on the [facility] logo. HOW TO SAFELY DISPOSE OF PRESCRIPTION MEDICATIONS Please use one of the following methods to safely dispose of your unused medications. 1.Use a drug disposal kit: the drug disposal pouch allows you to safely discard your old and unuseddrugs. Ask your nurse to give you one when you are discharged.2.Visit a local take-back location: Many local pharmacies and police departments have programs that collect old and unwanted prescriptiondrugs. Call your local pharmacy or go to http://Flowgram.Favor/2C8Qo6w to find one close to you.3.Make use of household items: Use cat litter or old coffee grounds to dispose medications if other options arenot available. Mix your drugs with these household products, seal them in an airtight container andthrow it into the garbage. Call [facility]: [phone] to be sure your drugs can be [...] drowsiness, such as benzodiazepines, also known as benzos,including diazepam and alprazolam, muscle relaxants or sleep aids. Never sell or share prescriptionopioids. This is illegal. Store opioids in a [...] aware that I should contact my doctor. Patient/Charrer Signature: Date/Time: Relationship to Patient: Witness Name/Signature: Date/Time: [facility]12-28-2023 Hospital Discharge instructions Patient Education 02/24/2023 16:51:43 [...] swollen, warm, and sore. The reddened areas havea visible border. An open sore may leak [...] or higher after 2 days on antibiotics [phone] [employer]. [address] [place] [address]. All rights reserved. This information is not intended as a substitute for professional medical care. Always follow yourhealthcare professional's instructions. Follow Up Care 02/24/2023 16:26:27 With:ARAM JOHNSON DO Address: [address] [place] [phone] When:2-4 days [facility] 12-28-2023 Note Discharge Instructions Thank you for allowing [facility] to assist you with your healthcare needs. The following is importantdischarge information regarding your hospital visit. Diagnosis from [...] JOHNSON DO When Within 2-4 days Where: [address] [place] [phone] Allergies Naprosyn (Nausea) aspirin (NAUSEA) Medications Please ask your primary doctor or pharmacist before taking any other medication not listed, including over the counter drugs, herbal medications, vitamins and or supplements as they may interact withyour home medications. What How Much When Why Instructions Last Dose New cephalexin (Keflex use cephalexin ) 500 Milligram by mouth Two (2) times a day Duration: 10 Days Printed Prescription Unchanged acetaminophen (Tylenol Extra Strength 500 mg oral tablet) 3 tab by mouth Every 6 hours as needed for as needed for pain Unchanged acetaminophen-hydrocodone ([place] 325- 5 mg oral tablet) 1 tab(s) [...] Vaginal bleeding Duration: 90 Days Managed by OB-CHIEF COMPLIANCE OFFICER Unchanged nortriptyline (nortriptyline 50 mg oral [...] may report side effects to FDA at 7-813-RHD-1375. What other drugs will affect cephalexin? Tell your doctor about all your other medicines, especially: metformin; or probenecid. This list is not complete. Other drugs may affect cephalexin, including prescription and xuhk-ehx-pchpyab medicines, vitamins, and herbal products. Not all [...] to ensure that the information provided by [employer]. ('Mult[employer]') is accurate, up-to-date, and complete, but no guarantee is made to that effect. Drug information contained herein may be time sensitive. Medpricer.com information has been compiled for use by healthcare practitioners and consumers in the [place] and therefore [employer] does not warrant that uses outside of the [place] are appropriate, unless specifically indicated otherwise. Mult[employer]'s drug information does not endorse drugs, diagnose patients or recommend therapy. obiwons drug information isan informational resource designed to assist licensed healthcare practitioners in caring for their p atients and/or to serve consumers viewing this service as a supplement to, and not a substitute for, the expertise, skill, knowledge and judgment of healthcare practitioners. The absence of a warningfor a given drug or drug combination in no way should be construed to indicate that the drug or drug combination is safe, effective or appropriate for any given patient. Medpricer.com does not assume any responsibility for any aspect of healthcare administered with the aid of information Medpricer.com provides. The information contained herein is not intended to cover all possible uses, directions, precautions, warnings, drug interactions, allergic reactions, or adverse effects. If you have questions about the drugs you are taking, check with your doctor, nurse or pharmacist. Copyright 7065-7699 [employer]. Version: 12.. Revision Date: 09/29/2022. Education Materials [...] swollen, warm, and sore. The reddened areas havea visible border. An open sore may leak [...] or higher after 2 days on antibiotics [phone] [employer]. [address] [place] [address], [place] [address]. All rights reserved. This information is not intended as a substitute for professional medical care. Always follow yourhealthcare professional's instructions. Additional Information VACCINATE! IT SAVES LIVES! Members of the community who have not yet received the COVID-19 vaccine and would like to receive it can visit one of [facility] vaccine clinics. There are many vaccine clinic locations within the [facility]. For locations and available times, please visit www.[email or web address].[email or web address]/. It is important to note that some COVID mobile vaccine clinics are held outdoors and may be canceled in rainy or stormy conditions. To learn more about pediatric vaccinations (ages 5-11), we invite you to visit the [facility] webpage. https://www.[facility].org/pages/4535-Tyuph-Xpnchpztcsx-Rzkvbvgbxa-Jtmkk-Gna stions.htmlTo learn more about the COVID-19 vaccine, we invite you to visit the CDC website for a list of frequently asked questions. https://www.cdc.gov/coronavirus/2019-ncov/vaccines/faq.html [facility] Patient Portal Access Instructions: Stay connected with your healthcare team and access your personal medical information anytime with the [facility] Patient Portal. If you would like a full copy of your medical records please contact the [facility] Medical Records Department Tuesday through Tuesday between 8a.m. and 4:30p.m. Please follow the directions below to access the portal: 1.Access the email account you provided upon registration to the [facility].2.Look for an invitation email from [facility].3.Open the email and access the invitation link: Accept Invitation to [facility]4.Fill in the required lee to create your [...] you will allow to register on the [facility] Patient Portal for access to your information. You can also access the [facility] Patient Portal on the Kutoto. Simply click on Health Records under [employer] and then click on the [facility] logo. HOW TO SAFELY DISPOSE OF PRESCRIPTION MEDICATIONS Please use one of the following methods to safely dispose of your unused medications. 1.Use a drug disposal kit: the drug disposal pouch allows you to safely discard your old and unuseddrugs. Ask your nurse to give you one when you are discharged.2.Visit a local take-back location: Many local pharmacies and police departments have programs that collect old and unwanted prescriptiondrugs. Call your local pharmacy or go to http://Flowgram.Favor/7B3Hg1t to find one close to you.3.Make use of household items: Use cat litter or old coffee grounds to dispose medications if other options arenot available. Mix your drugs with these household products, seal them in an airtight container andthrow it into the garbage. Call [facility]: [phone] to be sure your drugs can be [...] drowsiness, such as benzodiazepines, also known as benzos,including diazepam and alprazolam, muscle relaxants or sleep aids. Never sell or share prescriptionopioids. This is illegal. Store opioids in a [...] aware that I should contact my doctor. Patient/Charrer Signature: Date/Time: Relationship to Patient: Witness Name/Signature: Date/Time: [facility]12-21-2023 Hospital Discharge instructions Patient Education 02/17/2023 09:44:09 [...] area for up to 20 minutes at atime. Do this as often as directed. Use [...] the ears or bruising around the eyes [phone] [employer]. [address] [place] [address]. All rights reserved. This information is not intended as a substitute for professional medical care. Always follow yourhealthcare professional's instructions. Follow Up Care 02/17/2023 07:23:32 With:ARAM JOHNSON DO Address: [address] [place], [place] [phone] When:2-4 days [facility] 12-21-2023 Emergency department Discharge summary Discharge Instructions Thank you for allowing [facility] to assist you with your healthcare needs. The following is importantdischarge information regarding your hospital visit. Diagnosis from Today's Visit Chronic post-concussive headache Dizziness Headache Headache What to Do Next Instructions from Your Care Team No qualifying data available. Post Acute Orders No qualifying data available. You Need to Schedule the Following Appointments Follow Up with ARAM JOHNSON DO When Within 2-4 days Where: [address] [place] [address] [phone] Allergies Naprosyn (Nausea) aspirin (NAUSEA) Medications Please ask your primary doctor or pharmacist before taking any other medication not listed, including over the counter drugs, herbal medications, vitamins and or supplements as they may interact withyour home medications. What How Much When Why Instructions Last Dose New acetaminophen-hydrocodone ([place] 325- 5 mg oral tablet) 1 tab(s) [...] Vaginal bleeding Duration: 90 Days Managed by OB-CHIEF COMPLIANCE OFFICER Unchanged nortriptyline (nortriptyline 50 mg oral [...] where to locate a drug take-back disposal program.If there is no take-back program, flush the unused medicine down the toilet. What happens if I miss a dose? Since this medicine is used for pain, you are not likely to miss a dose. Skip any missed dose if itis almost time for your next dose. Do [...] health department. Make sure any person caring foryou knows where you keep naloxone and how to use it. What should I avoid while taking acetaminophen and hydrocodone? Avoid driving or operating machinery until you know how this medicine will affect you. Dizziness ordrowsiness can cause falls, accidents, or severe injuries. [...] if you have slow breathing with long pauses,blue colored lips, or if you are hard to wake up. In rare cases, acetaminophen may cause a severe skin reaction that can be fatal. This could occur even if you have taken acetaminophen in the past and had no reaction. Stop taking this medicine and call your doctor right away if you have skin redness or a rash that spreads and causes blistering andpeeling. Call your doctor at once if you [...] may report side effects to FDA at 4-764-TGG-0592. What other drugs will affect acetaminophen and [...] affect acetaminophen and hydrocodone, including prescription and emri-ucp-vnxbjvv medicines, vitamins, and herbal products. Not all [...] to ensure that the information provided by [employer]. ('Multum') is accurate, up-to-date, and complete, but no guarantee is made to that effect. Drug information contained herein may be time sensitive. Medpricer.com information has been compiled for use by healthcare practitioners and consumers in the [place] and therefore Medpricer.com does not warrant that uses outside of the [place] are appropriate, unless specifically indicated otherwise. obiwons drug information does not endorse drugs, diagnose patients or recommend therapy. obiwons drug information isan informational resource designed to assist licensed healthcare practitioners in caring for their p atients and/or to serve consumers viewing this service as a supplement to, and not a substitute for, the expertise, skill, knowledge and judgment of healthcare practitioners. The absence of a warningfor a given drug or drug combination in no way should be construed to indicate that the drug or drug combination is safe, effective or appropriate for any given patient. [facility] does not assume any responsibility for any aspect of healthcare administered with the aid of information [facility] provides. The information contained herein is not intended to cover all possible uses, directions, precautions, warnings, drug interactions, allergic reactions, or adverse effects. If you have questions about the drugs you are taking, check with your doctor, nurse or pharmacist. Copyright 8386-4859 [facility]. Version: 19.. Revision Date: 10/18/2022. ondansetron (oral) [...] provided, or with a special dose-measuring spoon ormedicine cup. If you do not have a [...] the body--agitation, hallucinations, fever, fast heart rate, overactivereflexes, nausea, vomiting, diarrhea, loss of coordination, fainting. Common side effects may include: diarrhea or constipation; headache; drowsiness; or tired feeling. This is not a complete list of side effects and others may occur. Call your doctor for medical advice about side effects. You may report side effects to FDA at 6-252-TNZ-4643. What other drugs will affect ondansetron? Ondansetron [...] interact with ondansetron. This includes prescription and eznp-clb-afnpkxw medicines, vitamins, and herbal products. Give a [...] to ensure that the information provided by [employer]. ('Mult[employer]') is accurate, up-to-date, and complete, but no guarantee is made to that effect. Drug information contained herein may be time sensitive. Medpricer.com information has been compiled for use by healthcare practitioners and consumers in the [place] and therefore Medpricer.com does not warrant that uses outside of the [place] are appropriate, unless specifically indicated otherwise. Medpricer.com's drug information does not endorse drugs, diagnose patients or recommend therapy. obiwons drug information isan informational resource designed to assist licensed healthcare practitioners in caring for their p atients and/or to serve consumers viewing this service as a supplement to, and not a substitute for, the expertise, skill, knowledge and judgment of healthcare practitioners. The absence of a warningfor a given drug or drug combination in no way should be construed to indicate that the drug or drug combination is safe, effective or appropriate for any given patient. Medpricer.com does not assume any responsibility for any aspect of healthcare administered with the aid of information Medpricer.com provides. The information contained herein is not intended to cover all possible uses, directions, precautions, warnings, drug interactions, allergic reactions, or adverse effects. If you have questions about the drugs you are taking, check with your doctor, nurse or pharmacist. Copyright 7463-9531 [employer]. Version: 16.01. Revision Date: 09/30/2022. Education Materials [...] area for up to 20 minutes at atime. Do this as often as directed. Use [...] the ears or bruising around the eyes 6603-4714 [employer]. [address] [place] [address]. All rights reserved. This information is not intended as a substitute for professional medical care. Always follow yourhealthcare professional's instructions. Additional Information VACCINATE! IT SAVES LIVES! Members of the community who have not yet received the COVID-19 vaccine and would like to receive it can visit one of [facility] vaccine clinics. There are many vaccine clinic locations within the [facility]. For locations and available times, please visit www.[email or web address].[place].gov/. It is important to note that some COVID mobile vaccine clinics are held outdoors and may be canceled in rainy or stormy conditions. To learn more about pediatric vaccinations (ages 5-11), we invite you to visit the [facility] webpage. https://www.[facility].org/pages/7993-Qkgfw-Dexdwrmdpma-Dlqdsjvwxs-Bhmko-Uqw stions.htmlTo learn more about the COVID-19 vaccine, we invite you to visit the CDC website for a list of frequently asked questions. https://www.cdc.gov/coronavirus/2019-ncov/vaccines/faq.html [facility] Patient Portal Access Instructions: Stay connected with your healthcare team and access your personal medical information anytime with the [facility] Patient Portal. If you would like a full copy of your medical records please contact the [facility] Medical Records Department Tuesday through Tuesday between 8a.m. and 4:30p.m. Please follow the directions below to access the portal: 1.Access the email account you provided upon registration to the [facility].2.Look for an invitation email from [facility].3.Open the email and access the invitation link: Accept Invitation to [facility]4.Fill in the required lee to create your account. Sign into [email or web address] with your username and password that you [...] you will allow to register on the [facility] Patient Portal for access to your information. You can also access the [facility] Patient Portal on the [employer] leigh. Simply click on Health Records under HealthData and then click on the [employer] logo. HOW TO SAFELY DISPOSE OF PRESCRIPTION MEDICATIONS Please use one of the following methods to safely dispose of your unused medications. 1.Use a drug disposal kit: the drug disposal pouch allows you to safely discard your old and unuseddrugs. Ask your nurse to give you one when you are discharged.2.Visit a local take-back location: Many local pharmacies and police departments have programs that collect old and unwanted prescriptiondrugs. Call your local pharmacy or go to http://bit.Favor/7J4Hk4f to find one close to you.3.Make use of household items: Use cat litter or old coffee grounds to dispose medications if other options arenot available. Mix your drugs with these household products, seal them in an airtight container andthrow it into the garbage. Call [facility]: [phone] to be sure your drugs can be [...] drowsiness, such as benzodiazepines, also known as benzos,including diazepam and alprazolam, muscle relaxants or sleep aids. Never sell or share prescriptionopioids. This is illegal. Store opioids in a [...] aware that I should contact my doctor. Patient/Charrer Signature: Date/Time: Relationship to Patient: Witness Name/Signature: Date/Time: [facility]12-21-2023 Note ORIGINAL EXAMINATION: CT HEAD TECHNIQUE: Axial [...] Sign Date: 02/17/2023 9:26:46 AM Ordering Provider: [facility]11-26-2023 Hospital Discharge instructions Patient Education 01/23/2023 12:17:26 AA Dara LOFTON (CUSTOM) Result type:CT Abd/Pelvis w/ IV Contrast Only Result date:January 23, 2023 11:34 EST Result status:Auth (Verified) Result title:CT ABD/PELVIS W/ IV CONTRAST ONLY Performed by:ORLIN TRUJILLO MD on January 23, 2023 11:08 EST Cosigned by:ORLIN TRUJILLO MD Verified by:ORLIN TRUJILLO MD on January 23, 2023 11:34 EST Encounter info:[id number], JOHNY HANNAH, Emergency, 01/23/2023 - Contributor system:[employer] * Final Report * [id number] ORIGINAL EXAMINATION: CT OF THE ABDOMEN AND [...] Document Reviewed: 02/15/2014 ExitCare Patient Information 2015 [employer]. This information is not intended to replace advicegiven to you by your health care provider. [...] or as directed by your healthcare provider [phone] [employer]. [address] [place] [address]. All rights reserved. This information is not intended as a substitute for professional medical care. Always follow yourhealthcare professional's instructions. 01/23/2023 09:23:56 Abdominal Pain Abdominal [...] find the cause of your pain. If needed,you will have tests. Belly pain has many [...] foods again, start with small amounts of kaec-up-lgxkuw, low- fat foods. These include apple sauce, toast, or [...] increase stomach acid. Don't use aspirin or kvhs-qmk-vsfejlt pain and fever medicines, if possible. This includes nonsteroidal anti-inflammatory drugs (NSAIDs). Lose excess weight. Finish eating at least 2 hours before you go to bed or lie down. Raise the head of your bed. 4161-4907 [employer]. [address] [place] [address]. All rights reserved. This information is not intended as a substitute for professional medical care. Always follow yourhealthcare professional's instructions. Follow Up Care 01/23/2023 09:05:26 With:Go to emergency room if symptoms worsen Address:Unknown When:2-4 days With:ARAM JOHNSON DO Address: [facility] [place] [address] [phone] When:2-4 days [facility] 11-26-2023 Emergency department Discharge summary Discharge Instructions Thank you for allowing [facility] to assist you with your healthcare needs. The following is importantdischarge information regarding your hospital visit. Diagnosis from Today's Visit Abdominal pain Abdominal pain Ankle pain Ankle pain-swelling UTI - Urinary tract infection What to Do Next Instructions from Your Care Team Take Keflex as prescribed for UTI. Drink plenty of fluids. X-ray of the ankle negative for fracturedid show some soft tissue swelling however you have been up and ambulatory here able to bear weight. Did discuss possibly treating for ankle sprain but recommend conservative management at this time.Use Cristian bandage as needed keep leg elevated and use ice as needed. CT abdomen pelvis did show hypodense spots in the liver recommend follow-up with your primary care provider and potential ultrasoundas an outpatient. Your lipase was just barely above normal not consistent with pancreatitis and youdid not have pain around the area of [...] DO When Within 2-4 days Where: [address] [place] [address]- [phone] Allergies Naprosyn (Nausea) aspirin (NAUSEA) Medications Please ask your primary doctor or pharmacist before taking any other medication not listed, including over the counter drugs, herbal medications, vitamins and or supplements as they may interact withyour home medications. What How Much When Why [...] Vaginal bleeding Duration: 90 Days Managed by OB-CHIEF COMPLIANCE OFFICER Unchanged nortriptyline (nortriptyline 50 mg oral [...] may report side effects to FDA at 1-668-ZSV-[phone]. What other drugs will affect cephalexin? Tell your doctor about all your other medicines, especially: metformin; or probenecid. This list is not complete. Other drugs may affect cephalexin, including prescription and mjox-umk-xvvyldf medicines, vitamins, and herbal products. Not all [...] to ensure that the information provided by [employer]. ('Multum') is accurate, up-to-date, and complete, but no guarantee is made to that effect. Drug information contained herein may be time sensitive. Medpric[employer].com information has been compiled for use by healthcare practitioners and consumers in the [place] and therefore Medpricer.com does not warrant that uses outside of the [place] are appropriate, unless specifically indicated otherwise. obiwons drug information does not endorse drugs, diagnose patients or recommend therapy. obiwons drug information isan informational resource designed to assist licensed healthcare practitioners in caring for their p atients and/or to serve consumers viewing this service as a supplement to, and not a substitute for, the expertise, skill, knowledge and judgment of healthcare practitioners. The absence of a warningfor a given drug or drug combination in no way should be construed to indicate that the drug or drug combination is safe, effective or appropriate for any given patient. Medpric[employer].com does not assume any responsibility for any aspect of healthcare administered with the aid of information Medpricer.com provides. The information contained herein is not intended to cover all possible uses, directions, precautions, warnings, drug interactions, allergic reactions, or adverse effects. If you have questions about the drugs you are taking, check with your doctor, nurse or pharmacist. Copyright 5626-1729 [employer]. Version: 12.. Revision Date: 09/29/2022. Education Materials Result type: CT Abd/Pelvis w/ IV Contrast Only Result date: January 23, 2023 11:34 EST Result status: Auth (Verified) Result title: CT ABD/PELVIS W/ IV CONTRAST ONLY Performed by: ORLIN TRUJILLO MD on January 23, 2023 11:08 EST Cosigned by: ORLIN TRUJILLO MD Verified by: ORLIN TRUJILLO MD on January 23, 2023 11:34 EST Encounter info: [id number], JOHNY HANNAH, Emergency, 01/23/2023 - Contributor system: [employer] * Final Report * [id number] ORIGINAL EXAMINATION: CT OF THE ABDOMEN AND [...] Document Reviewed: 02/15/2014 ExitCare Patient Information 2015 [employer]. This information is not intended to replace advicegiven to you by your health care provider. [...] or as directed by your healthcare provider 6532-9434 [employer]. [address] [place] [address], [place] [address]. All rights reserved. This information is not intended as a substitute for professional medical care. Always follow yourhealthcare professional's instructions. Abdominal Pain Abdominal pain is [...] find the cause of your pain. If needed,you will have tests. Belly pain has many [...] foods again, start with small amounts of nfpj-jw-qrmmlc, low- fat foods. These include apple sauce, toast, or [...] increase stomach acid. Don't use aspirin or jfqd-bxw-klixkfl pain and fever medicines, if possible. This includes nonsteroidal anti-inflammatory drugs (NSAIDs). Lose excess weight. Finish eating at least 2 hours before you go to bed or lie down. Raise the head of your bed. 1447-3843 [employer]. [address] [place] [address]. All rights reserved. This information is not intended as a substitute for professional medical care. Always follow yourhealthcare professional's instructions. Additional Information VACCINATE! IT SAVES LIVES! Members of the community who have not yet received the COVID-19 vaccine and would like to receive it can visit one of [facility] vaccine clinics. There are many vaccine clinic locations within the [facility]. For locations and available times, please visit www.[email or web address]/. It is important to note that some COVID mobile vaccine clinics are held outdoors and may be canceled in rainy or stormy conditions. To learn more about pediatric vaccinations (ages 5-11), we invite you to visit the [facility] webpage. https://www.[facility].org/pages/9830-Foedi-Agnkpfzpfgq-Rapifstmmt-Hhbbl-Tyz stions.htmlTo learn more about the COVID-19 vaccine, we invite you to visit the CDC website for a list of frequently asked questions. https://www.cdc.gov/coronavirus/2019-ncov/vaccines/faq.html [facility] Patient [facility] Access Instructions: Stay connected with your healthcare team and access your personal medical information anytime with the [facility] Patient Portal. If you would like a full copy of your medical records please contact the [facility] Medical Records Department Tuesday through Tuesday between 8a.m. and 4:30p.m. Please follow the directions below to access the portal: 1.Access the email account you provided upon registration to the [facility].2.Look for an invitation email from [facility].3.Open the email and access the invitation link: Accept Invitation to [facility].Fill in the required lee to create your account. Sign into [email or web address] with your username and password that you [...] you will allow to register on the [facility] Patient Portal for access to your information. You can also access the [facility] Patient Portal on the [employer] leigh. Simply click on Health Records under [employer] and then click on the Johny logo. HOW TO SAFELY DISPOSE OF PRESCRIPTION MEDICATIONS Please use one of the following methods to safely dispose of your unused medications. 1.Use a drug disposal kit: the drug disposal pouch allows you to safely discard your old and unuseddrugs. Ask your nurse to give you one when you are discharged.2.Visit a local take-back location: Many local pharmacies and police departments have programs that collect old and unwanted prescriptiondrugs. Call your local pharmacy or go to http://bit.Favor/3R2So9a to find one close to you.3.Make use of household items: Use cat litter or old coffee grounds to dispose medications if other options arenot available. Mix your drugs with these household products, seal them in an airtight container andthrow it into the garbage. Call [facility]: [phone] to be sure your drugs can be [...] drowsiness, such as benzodiazepines, also known as benzos,including diazepam and alprazolam, muscle relaxants or sleep aids. Never sell or share prescriptionopioids. This is illegal. Store opioids in a [...] aware that I should contact my doctor. Patient/Charrer Signature: Date/Time: Relationship to Patient: Witness Name/Signature: Date/Time: [facility]11-26-2023 Note ORIGINAL EXAMINATION: XR foot 2V TECHNIQUE: [...] Sign Date: 01/23/2023 12:06:18 PM Ordering Provider: [facility]11-26-2023 Note ORIGINAL EXAMINATION: CT OF THE ABDOMEN [...] Sign Date: 01/23/2023 12:02:52 PM Ordering Provider: [facility]11-21-2023 Miscellaneous Notes* Addendum Note - Satnam Rodriguez APRN.CNP - 01/18/2023 10:48 AM ESTAddended by: SATNAM RODRIGUEZ on: 01/18/2023 10:48 AM Modules accepted: [facility] Instructions* Patient Instructions* Satnam Rodriguez APRN.CNP - 01/18/2023 8:00 AM EST ASSESSMENT/PLAN: 1. Leg cramps - ICD9: 729.82, ICD10: R25.2 If labs ok I will order magnesium Follow up with primary care provider Urgent follow up for worsening symptoms. - BASIC METABOLIC PNL documented in [facility]Sam[facility]-2023 NoteHNO ID: [id number] Author: Satnam Rodriguez APRN.WRAPPING CLERK Service: ? Author Type: Nurse Practitioner Type: [...] s/s. - BASIC METABOLIC PNL Satnam Rodriguez APRN.[facility]11-21-2023 History of Present illness Narrative* Satnam Rodriguez APRN.MARIA TERESA - 01/18/2023 7:42 AM EST Subjective HPI HPI May Isaac is a [...] inhaler Inhale 2 Puffs as instructed. fremanezumab-vfrm (SpacebikiniOVY AUTOINJECTOR) 225 mg/1.5 mL auto-injector Inject 225 [...] 20 mL by mouth every 4 hours asneeded. (Patient not taking: Reported on 07/28/2022) No [...] - BASIC METABOLIC PNL Satnam Rodriguez APRN.CNP documented [facility]23 Instructions* Patient Instructions* Whitley Hsieh APRN.CNP - 01/17/2023 10:20 AM [...] course of illness Whitley Hsieh APRN.MARIA TERESA HEADACHE GENERAL INFORMATION: Almost everyone has a headache occasionally. Most headaches are caused by tension, eye strain, or emotional upset. Headaches can also occur with many medical illnesses. They may be a side effect of some medications. A headache that occurs without other symptoms and only lasts a few hours probably isn't a cause for concern. INSTRUCTIONS: 1. You may use ktio-gyd-jdsnkte pain medication such as acetaminophen, ibuprofen, or aspirin unlessyour doctor recommends otherwise. 2. Try some of [...] your arms or legs. documented in [facility]Sam[facility]-2023 NoteHNO ID: [id number] Author: Whitley Hsieh APRN.MARIA TERESA Service: ? [...] expected course of illness Whitley Hsieh APRN.[facility] History of Present illness Narrative* Whitley Hsieh APRN.WRAPPING CLERK - 01/17/2023 9:57 AM EST Subjective Headache Pertinent negatives include no fever. [...] (SYMBICORT) 160-4.5 mcg/actuation inhaler^Inhale 2 Puffs as instructed.^Disp:^Rfl: benzonatate (TESSALON PERLES) 100 mg capsule^Take 2 capsules by mouth three times daily as needed.^Disp: 30 capsule^Rfl: 0 (Patient not taking: Reported on 01/17/2023) guaiFENesin (MUCINEX FAST-MAX CHEST-CONGEST) 100 mg/5 mL syrup^Take 20 mL by mouth every 4 hours asneeded.^Disp: 120 mL^Rfl: 0 (Patient not taking: Reported [...] Discussed expected course of illness Whitley Hsieh APRN.WRAPPING CLERK documented in this [facility]Sam[facility]23 Hospital Discharge instructions Patient Education 01/10/2023 11:13:25 Anxiety Reaction Anxiety Reaction Anxiety is the feeling we all get when we think something bad might happen. It is a normal responseto stress and usually causes only a mild [...] relieved by rest and mild pain reliever 6686-1424 [employer]. [address] [place] [address]. All rights reserved. This information is not intended as a substitute for professional medical care. Always follow yourhealthcare professional's instructions. 01/10/2023 11:13:10 Chest Pain, Uncertain Cause Uncertain Causes of Chest Pain Chest pain can happen for a number of reasons. Sometimes the cause can't be determined. If your condition does not seem serious, and your pain does not appear to be coming from your heart, your healthcare provider may recommend watching it closely. Sometimes the signs of a serious problem take moretime to appear. Many problems not related to [...] Swelling, pain or redness in one leg 7945-6963 [employer]. [address] [place] [address]. All rights reserved. This information is not intended as a substitute for professional medical care. Always follow yourhealthcare professional's instructions. Follow Up Care 01/10/2023 08:29:14 With:PHYSICIAN, NOT RECORDED Address:Unknown When:2-4 days With:Follow up with primary care provider Address:Unknown When:2-4 days With:Call AMB New Pt. Refferral [phone] Address:Unknown When:2-4 days With:Go to emergency room if symptoms worsen Address:Unknown When:2-4 days [facility] 11-13-2023 Note Discharge Instructions Thank you for allowing [facility] to assist you with your healthcare needs. The following is importantdischarge information regarding your hospital visit. Diagnosis from [...] Up with Call AMB New Pt. Refferral [phone] When Within 2-4 days Follow Up with Go to emergency room if symptoms worsen When Within 2-4 days Allergies Naprosyn (Nausea) aspirin (NAUSEA) Medications Please ask your primary doctor or pharmacist before taking any other medication not listed, including over the counter drugs, herbal medications, vitamins and or supplements as they may interact withyour home medications. What How Much When Why [...] Vaginal bleeding Duration: 90 Days Managed by OB-CHIEF COMPLIANCE OFFICER Unchanged nortriptyline (nortriptyline 50 mg oral [...] especially someone with a history of drug addiction.MISUSE CAN CAUSE ADDICTION, OVERDOSE, OR . Keep the medicine where others cannot get to it. Selling or giving away this medicine is against the law. Measure the oral concentrate (liquid) with the supplied measuring device (not a kitchen spoon). Mixthe liquid with water, juices, soda or soda-like [...] without asking your doctor. You may have life- threatening withdrawal symptoms if you stop using the [...] adults. Use caution to avoid falling or accidentalinjury. Common side effects may include: dizziness, sedation, [...] may report side effects to FDA at 7-803-URM-2063. What other drugs will affect lorazepam? Taking [...] drugs may affect lorazepam. This includes prescription asbanir-pgq-iqrtxwh medicines, vitamins, and herbal products. Not all [...] to ensure that the information provided by S[employer]MNT. ('Multum') is accurate, up-to-date, and complete, but no guarantee is made to that effect. Drug information contained herein may be time sensitive. Medpricer.com information has been compiled for use by healthcare practitioners and consumers in the [place] and therefore Medpricer.com does not warrant that uses outside of the [place] are appropriate, unless specifically indicated otherwise. obiwons drug information does not endorse drugs, diagnose patients or recommend therapy. obiwons drug information isan informational resource designed to assist licensed healthcare practitioners in caring for their p atients and/or to serve consumers viewing this service as a supplement to, and not a substitute for, the expertise, skill, knowledge and judgment of healthcare practitioners. The absence of a warningfor a given drug or drug combination in no way should be construed to indicate that the drug or drug combination is safe, effective or appropriate for any given patient. [facility] does not assume any responsibility for any aspect of healthcare administered with the aid of information [facility] provides. The information contained herein is not intended to cover all possible uses, directions, precautions, warnings, drug interactions, allergic reactions, or adverse effects. If you have questions about the drugs you are taking, check with your doctor, nurse or pharmacist. Copyright 5137-3473 [facility] [employer]. Version: 10.. Revision Date: 07/19/2022. Education Materials Anxiety Reaction Anxiety is the feeling we all get when we think something bad might happen. It is a normal responseto stress and usually causes only a mild [...] relieved by rest and mild pain reliever 6518-8310 [employer]. [address] [place] [address]. All rights reserved. This information is not intended as a substitute for professional medical care. Always follow yourhealthcare professional's instructions. Uncertain Causes of Chest Pain Chest pain can happen for a number of reasons. Sometimes the cause can't be determined. If your condition does not seem serious, and your pain does not appear to be coming from your heart, your healthcare provider may recommend watching it closely. Sometimes the signs of a serious problem take moretime to appear. Many problems not related to [...] Swelling, pain or redness in one leg 1205-0043 [employer]. [address] [place] [address]. All rights reserved. This information is not intended as a substitute for professional medical care. Always follow yourhealthcare professional's instructions. Additional Information VACCINATE! IT SAVES LIVES! Members of the community who have not yet received the COVID-19 vaccine and would like to receive it can visit one of [facility] vaccine clinics. There are many vaccine clinic locations within the [facility]. For locations and available times, please visit www.[email or web address].[email or web address].gov/. It is important to note that some COVID mobile vaccine clinics are held outdoors and may be canceled in rainy or stormy conditions. To learn more about pediatric vaccinations (ages 5-11), we invite you to visit the [facility] webpage. https://www.[facility].org/pages/4140-Evxak-Jorpfbgtwbd-Eukmmyopan-Alkcq-Qcy stions.htmlTo learn more about the COVID-19 vaccine, we invite you to visit the CDC website for a list of frequently asked questions. https://www.cdc.gov/coronavirus/2019-ncov/vaccines/faq.html [facility] Patient Portal Access Instructions: Stay connected with your healthcare team and access your personal medical information anytime with the [facility] Patient Portal. If you would like a full copy of your medical records please contact the [facility] Medical Records Department Tuesday through Tuesday between 8a.m. and 4:30p.m. Please follow the directions below to access the portal: 1.Access the email account you provided upon registration to the [facility].2.Look for an invitation email from [facility].3.Open the email and access the invitation link: Accept Invitation to [facility]4.Fill in the required lee to create your account. Sign into [email or web address] with your username and password that you [...] you will allow to register on the [facility] Patient Portal for access to your information. You can also access the [facility] Patient Portal on the K[employer]. Simply click on Health Records under [employer] and then click on the Johny logo. HOW TO SAFELY DISPOSE OF PRESCRIPTION MEDICATIONS Please use one of the following methods to safely dispose of your unused medications. 1.Use a drug disposal kit: the drug disposal pouch allows you to safely discard your old and unuseddrugs. Ask your nurse to give you one when you are discharged.2.Visit a local take-back location: Many local pharmacies and police departments have programs that collect old and unwanted prescriptiondrugs. Call your local pharmacy or go to http://Flowgram.Favor/6W9Cb1o to find one close to you.3.Make use of household items: Use cat litter or old coffee grounds to dispose medications if other options arenot available. Mix your drugs with these household products, seal them in an airtight container andthrow it into the garbage. Call [facility]: [phone] to be sure your drugs can be [...] drowsiness, such as benzodiazepines, also known as benzos,including diazepam and alprazolam, muscle relaxants or sleep aids. Never sell or share prescriptionopioids. This is illegal. Store opioids in a [...] aware that I should contact my doctor. Patient/Charrer Signature: Date/Time: Relationship to Patient: Witness Name/Signature: Date/Time: [facility]11-13-2023 Note ORIGINAL EXAMINATION: ONE XRAY VIEW OF [...] Date: 01/10/2023 9:28:16 AM [facility]ing [facility] Note Sinus rhythm Borderline left axis deviation Low voltage, precordial leads Abnormal R-wave progression, late transition Abnormal T, consider ischemia, diffuse leads Prolonged QT interval Somewhat similar to EKG December 24, 2022. Electronic Signature: SHEELA GARRIDO MD 01/10/2023 09:38:48[facility] 10-27-2023 Note ORIGINAL EXAMINATION: CT OF THE ABDOMEN [...] resident's findings and interpretation. Interpreted by: Nicolás Hillman Preliminary Report By: Bernardo Jeter Electronically signed By Nicolás Hillman Dictated Date: 12/24/2022 8:43:39 PM Prelim Date: 12/24/2022 9:00:54 PM Sign Date: 12/24/2022 9:26:09 PM Ordering Provider: [facility]10-27-2023 Note ORIGINAL EXAMINATION: CTA OF THE CHEST [...] Reference: Radiology. 2017; 284(1):228-43. Interpreted by: Nicolás Hillman Preliminary Report By: Bernardo Jeter Electronically signed By Nicolás Hillman Dictated Date: 12/24/2022 9:01:04 PM Prelim Date: 12/24/2022 9:05:16 PM Sign Date: 12/24/2022 9:27:46 PM Ordering Provider: [facility]10-18-2023 Miscellaneous Notes* Telephone Encounter - Inez Stoll LPN - 12/15/2022 12:37 PM EDT Patient notified and verbalized understanding of instructions given.Inez Stoll LPN * Telephone Encounter - Daisy Sarmiento APRN.CNP - 12/15/2022 10:44 AM EDT Please call patient and let her know that Macrobid twice a day for 5 days is being called in for urine culture results which are mildly contaminated. If symptoms do not improve after antibiotic. Please have patient call primary care provider [facility] Miscellaneous Notes* Telephone Encounter - Whitley Hsieh APRN.CNP - 12/15/2022 10:29 AM EDT Patient identified by name and date of . Patient advised of lab results. She is currently taking Levothyroxine 175 mcg. She is advised to see her PCP for medication adjustment. [facility] does not manage chronic disease medications. Labs are printed for her and left at [facility] Care desk for pickup since her PCP is not in [facility] system. Urine culture is still pending; if it shows any bacterial growth an antibiotic will be sent to her pharmacy. Whitley Hsieh APRN.MARIA TERESA documented in this [facility]Sam[facility]10-17-2023 Instructions* Patient Instructions* Whitley Hsieh APRN.CNP - 12/14/2022 11:56 AM EDT ASSESSMENT/PLAN: 1. [...] - CBC + DIFF E [employer] SUMMER COUNSELOR Student TEACHING PROVIDER (Physician/PA/BLOOD BANK SPECIALIST) NOTE OF PERSONAL INVOLVEMENT IN CARE: I have personally seen and examined the patient and performed the medical decision-making components. I have reviewed the Advanced Practice Registered Nurse (BLOOD BANK SPECIALIST) Student's documentation and verified the findings in the note as written. Any additions or changes are noted in bold/italics. Signature: Whitley Hsieh Date: 12/14/2022 Time: 11:55 AM documented in [facility] History of Present illness Narrative* Whitley Hsieh APRN.CNP - 12/14/2022 11:04 AM EDT Images from the original note were not included. This note was created using [employer]. Subjective Kamala Gray is a 52 year [...] 20 mL by mouth every 4 hours asneeded. (Patient not taking: Reported on 07/28/2022) No [...] - CBC + DIFF E [employer] SUMMER COUNSELOR Student TEACHING PROVIDER (Physician/PA/BLOOD BANK SPECIALIST) NOTE OF PERSONAL INVOLVEMENT IN CARE: I have personally seen and examined the patient and performed the medical decision-making components. I have reviewed the Advanced Practice Registered Nurse (BLOOD BANK SPECIALIST) Student's documentation and verified the findings in the note as written. Any additions or changes are noted in bold/italics. Signature: Whitley Hiseh Date: 12/14/2022 Time: 11:55 AM documented in this encounterSam[facility] Evaluation + Plan note Future Scheduled Tests Laboratory* Iron Level 11/20/22 * Thyroid Stimulating Hormone 11/20/22 * Free T4 11/20/22 * A1C Hemoglobin 11/20/22 * Complete Blood Count 11/20/22 * Lipid Profile 11/20/22 * Albumin/Creatinine Ratio, Random Urine 11/20/22 * Microalbumin Level Urine 05/17/22 * Vitamin D Level 11/20/22 * Complete Metabolic Panel 11/20/22 * TIBC 11/20/22 [facility] 09-23-2023 Evaluation + Plan note Future Scheduled Tests Laboratory* Iron Level 11/20/22 * Thyroid Stimulating Hormone 11/20/22 * Free T4 11/20/22 * A1C Hemoglobin 11/20/22 * Complete Blood Count 11/20/22 * Lipid Profile 11/20/22 * Albumin/Creatinine Ratio, Random Urine 11/20/22 * Vitamin D Level 11/20/22 * Complete Metabolic Panel 11/20/22 * TIBC 11/20/22 [facility] 09-19-2023 History of Present illness Narrative* Valeria Thompson PA-C - 11/16/2022 12:48 PM EDT Images from the original note were not included. This note was created using [employer]. Subjective Kamala Gray is a 52 year old female. HPI Patient presents with full complaints. She was in the [facility] emergency department November 11 andhad a work-up for shortness of breath and cough. She states her chest x-ray was normal. They treated her for bronchitis. She was placed on doxycycline. She is still on this medicine. She is she stillhas a cough. No fever. No chest pain. No vomiting or diarrhea. She does have a history of COPD. They did test her for COVID and was negative at the ER as well. She also is complaining of a sore on the back of her neck. Her CPAP rubs on this area and she has an open wound. No ewge-ugj-mckseiz medicines tried or bandages. Patient also complaining of a rash underneath of her breasts and pannus chroni stacy. She states she was given nystatin powder [...] 20 mL by mouth every 4 hours asneeded. (Patient not taking: Reported on 07/28/2022) 120 [...] point. Given Tessalon for cough. Patient agreeable. Valeria Thompson PA-C documented in this encounterSam[facility] Hospital Discharge instructions Patient Education 10/03/2022 16:18:34 [...] the signs of a serious problem take moretime to appear. Many problems not related to [...] Swelling, pain or redness in one leg 1966-[address] [employer] [place] [address]. All rights reserved. This information is not intended as a substitute for professional medical care. Always follow yourhealthcare professional's instructions. 10/03/2022 16:18:17 Bladder Infection, Female (Adult) Bladder Infection, Female (Adult) Urine is normally doesn't have any bacteria in it. But bacteria can get into the urinary tract fromthe skin around the rectum. Or they can [...] bladder. This causes many of the symptoms. Themost common symptoms of a bladder infection are: [...] into the urine and travel up to thebladder, causing inflammation and infection. This usually happens [...] better. It is important to finish them tomake sure the infection has cleared. You can [...] needs to be changed. If directed, you cancall to find out the results. If X-rays [...] swelling in the outer vaginal area (labia) 0983-[address] [employer] [place] [address]. All rights reserved. This information is not intended as a substitute for professional medical care. Always follow yourhealthcare professional's instructions. Follow Up Care 10/03/2022 13:22:37 With:JAI GANT DO Address: [address] [place] [id number] [phone] When:2-4 days Comments:Schedule appointment as soon as possible [facility] 08-06-2023 Emergency department Discharge summary Discharge Instructions Thank you for allowing [facility] to assist you with your healthcare needs. The following is importantdischarge information regarding your hospital visit. What to [...] Schedule appointment as soon as possible Where: [address] [place] [phone]- [phone] Allergies Naprosyn (Nausea) aspirin (NAUSEA) Medications Please ask your primary doctor or pharmacist before taking any other medication not listed, including over the counter drugs, herbal medications, vitamins and or supplements as they may interact withyour home medications. What How Much When Why [...] Vaginal bleeding Duration: 90 Days Managed by OB-CHIEF COMPLIANCE OFFICER Unchanged nortriptyline (nortriptyline 50 mg oral [...] the signs of a serious problem take moretime to appear. Many problems not related to [...] Swelling, pain or redness in one leg 7027-3771 [employer] [place] [address]. All rights reserved. This information is not intended as a substitute for professional medical care. Always follow yourhealthcare professional's instructions. Bladder Infection, Female (Adult) Urine is normally doesn't have any bacteria in it. But bacteria can get into the urinary tract fromthe skin around the rectum. Or they can [...] bladder. This causes many of the symptoms. Themost common symptoms of a bladder infection are: [...] into the urine and travel up to thebladder, causing inflammation and infection. This usually happens [...] better. It is important to finish them tomake sure the infection has cleared. You can [...] needs to be changed. If directed, you cancall to find out the results. If X-rays [...] swelling in the outer vaginal area (labia) 9315-1702 [employer]. [address] [place] [address]. All rights reserved. This information is not intended as a substitute for professional medical care. Always follow yourhealthcare professional's instructions. Additional Information VACCINATE! IT SAVES LIVES! Members of the community who have not yet received the COVID-19 vaccine and would like to receive it can visit one of [facility] vaccine clinics. There are many vaccine clinic locations within the [facility]. For locations and available times, please visit www.[email or web address].[email or web address]/. It is important to note that some COVID mobile vaccine clinics are held outdoors and may be canceled in rainy or stormy conditions. To learn more about pediatric vaccinations (ages 5-11), we invite you to visit the [facility] webpage. https://www.[facility].org/pages/6584-Nygqv-Tbtfjnfhyuy-Yqprcusfqa-Pcoel-Dwn stions.htmlTo learn more about the COVID-19 vaccine, we invite you to visit the CDC website for a list of frequently asked questions. https://www.cdc.gov/coronavirus/2019-ncov/vaccines/faq.html [facility] Patient Portal Access Instructions: Stay connected with your healthcare team and access your personal medical information anytime with the [facility] Patient Portal. If you would like a full copy of your medical records please contact the [facility] Medical Records Department Tuesday through Tuesday between 8a.m. and 4:30p.m. Please follow the directions below to access the portal: 1.Access the email account you provided upon registration to the [facility].2.Look for an invitation email from [facility].3.Open the email and access the invitation link: Accept Invitation to [facility]4.Fill in the required lee to create your account. Sign into [email or web address] with your username and password that you [...] you will allow to register on the [facility] Patient Portal for access to your information. You can also access the [facility] Patient Portal on the [employer] leigh. Simply click on Health Records under AimWithData and then click on the HutGrip logo. HOW TO SAFELY DISPOSE OF PRESCRIPTION MEDICATIONS Please use one of the following methods to safely dispose of your unused medications. 1.Use a drug disposal kit: the drug disposal pouch allows you to safely discard your old and unuseddrugs. Ask your nurse to give you one when you are discharged.2.Visit a local take-back location: Many local pharmacies and police departments have programs that collect old and unwanted prescriptiondrugs. Call your local pharmacy or go to http://bit.Favor/1B4Bz1j to find one close to you.3.Make use of household items: Use cat litter or old coffee grounds to dispose medications if other options arenot available. Mix your drugs with these household products, seal them in an airtight container andthrow it into the garbage. Call [facility]: [phone] to be sure your drugs can be [...] drowsiness, such as benzodiazepines, also known as benzos,including diazepam and alprazolam, muscle relaxants or sleep aids. Never sell or share prescriptionopioids. This is illegal. Store opioids in a secure place and out of reach of others (including children, family, friends and visitors). The last page(s) of this document has been signed and retained as a CHART COPY Signatures Patient Education Materials Chest Pain, Uncertain Cause Bladder Infection, Female (Adult) Medication Leaflets My discharge plan and instructions have been reviewed and explained to me and I,ISAACMay L understand my current condition and have read and understand these discharge instructions. I have received a written copy of the plan/instructions. If I have questions, I am aware that I should contact my doctor. Patient/Charrer Signature: Date/Time: Relationship to Patient: Witness Name/Signature: Date/Time: [facility]08-06-2023 Note ORIGINAL EXAMINATION: CTA OF THE CHEST [...] Sign Date: 10/03/2022 3:25:19 PM Ordering Provider: [facility]08-06-2023 Note ORIGINAL EXAMINATION: CT OF THE HEAD [...] by: Wes Garcia MD Preliminary Report By: Janina Luna Electronically signed By Wes Garcia MD Dictated Date: 10/03/2022 3:22:58 PM Prelim Date: 10/03/2022 3:25:54 PM Sign Date: 10/03/2022 3:27:50 PM Ordering Provider: [facility]08-06-2023 Note ORIGINAL EXAMINATION: ONE XRAY VIEW OF [...] by: Wes Garcia MD Preliminary Report By: Janina Luna Electronically signed By Wes Garcia MD Dictated Date: 10/03/2022 2:44:55 PM Prelim Date: 10/03/2022 2:47:47 PM Sign Date: 10/03/2022 2:58:22 PM Ordering Provider: [facility]08-06-2023 Note Sinus tachycardia Electronic Signature: SHEELA GARRIDO MD 10/03/2022 13:53:26[facility] 07-27-2023 Hospital Discharge instructions Patient Education 09/23/2022 00:08:14 [...] and reduce pain. Don t place ice directlyon your skin. Wrap a cold pack or [...] worsens and is not improved with elevation. 1760-[address] [employer] [place] [address]. All rights reserved. This information is not intended as a substitute for professional medical care. Always follow yourhealthcare professional's instructions. Follow Up Care 09/22/2022 23:40:44 With:LUZ ELENA SANCHEZ MD Address: [facility] [address] [place] [address]- When:2-4 days [facility] 07-27-2023 Note Discharge Instructions Thank you for allowing [facility] to assist you with your healthcare needs. The following is importantdischarge information regarding your hospital visit. Diagnosis from Today's Visit Foot pain-swelling [place] - Headache SOB - Shortness of breath What to Do Next Instructions from Your Care Team No qualifying data available. Post Acute Orders No qualifying data available. You Need to Schedule the Following Appointments Follow Up with LUZ ELENA SANCHEZ MD When Within 2-4 days Where: [facility]/[address] [place] [address]- Allergies Naprosyn (Nausea) aspirin (NAUSEA) Medications Please ask your primary doctor or pharmacist before taking any other medication not listed, including over the counter drugs, herbal medications, vitamins and or supplements as they may interact withyour home medications. What How Much When Why [...] Vaginal bleeding Duration: 90 Days Managed by OB-CHIEF COMPLIANCE OFFICER Unchanged nortriptyline (nortriptyline 50 mg oral [...] and reduce pain. Don t place ice directlyon your skin. Wrap a cold pack or [...] worsens and is not improved with elevation. 7338-4975 [employer]. [address] [place] [address]. All rights reserved. This information is not intended as a substitute for professional medical care. Always follow yourhealthcare professional's instructions. Additional Information VACCINATE! IT SAVES LIVES! Members of the community who have not yet received the COVID-19 vaccine and would like to receive it can visit one of [facility] vaccine clinics. There are many vaccine clinic locations within the [facility]. For locations and available times, please visit www.[email or web address].[email or web address].gov/. It is important to note that some COVID mobile vaccine clinics are held outdoors and may be canceled in rainy or stormy conditions. To learn more about pediatric vaccinations (ages 5-11), we invite you to visit the [facility] webpage. https://www.[facility].org/pages/8139-Qvqfo-Cdtudwytcuc-Hpbixbybad-Xohua-Lxf stions.htmlTo learn more about the COVID-19 vaccine, we invite you to visit the CDC website for a list of frequently asked questions. https://www.cdc.gov/coronavirus/2019-ncov/vaccines/faq.html [facility] Patient Portal Access Instructions: Stay connected with your healthcare team and access your personal medical information anytime with the [facility] Patient Portal. If you would like a full copy of your medical records please contact the [facility] Medical Records Department Tuesday through Tuesday between 8a.m. and 4:30p.m. Please follow the directions below to access the portal: 1.Access the email account you provided upon registration to the [facility].2.Look for an invitation email from [facility].3.Open the email and access the invitation link: Accept Invitation to [facility]4.Fill in the required lee to create your account. Sign into [email or web address] with your username and password that you [...] you will allow to register on the [facility] Patient Portal for access to your information. You can also access the [facility] Patient Portal on the [employer] leigh. Simply click on Health Records under HealthData and then click on the [employer] logo. HOW TO SAFELY DISPOSE OF PRESCRIPTION MEDICATIONS Please use one of the following methods to safely dispose of your unused medications. 1.Use a drug disposal kit: the drug disposal pouch allows you to safely discard your old and unuseddrugs. Ask your nurse to give you one when you are discharged.2.Visit a local take-back location: Many local pharmacies and police departments have programs that collect old and unwanted prescriptiondrugs. Call your local pharmacy or go to http://bit.ly/6M9Uo8l to find one close to you.3.Make use of household items: Use cat litter or old coffee grounds to dispose medications if other options arenot available. Mix your drugs with these household products, seal them in an airtight container andthrow it into the garbage. Call [facility]: [phone] to be sure your drugs can be [...] drowsiness, such as benzodiazepines, also known as benzos,including diazepam and alprazolam, muscle relaxants or sleep aids. Never sell or share prescriptionopioids. This is illegal. Store opioids in a [...] aware that I should contact my doctor. Patient/Charrer Signature: Date/Time: Relationship to Patient: Witness Name/Signature: Date/Time: [facility]07-27-2023 Note ORIGINAL EXAMINATION: ONE XRAY VIEW OF [...] Sign Date: 09/23/2022 12:30:42 AM Ordering Provider: [facility]06-20-2023 Instructions* Patient Instructions* Whitley Hsieh APRN.CNP - 08/17/2022 2:48 PM [...] illness Whitley Hsieh APRN.CNP documented in [facility] History of Present illness Narrative* Whitley Hsieh APRN.CNP - 08/17/2022 2:07 PM EDT Subjective HPI Kamala Gray is a 52 year old female who presents with a headache and nausea. She was seen here on 08/13 for a fall that occurred 2 days prior. She was referred to ER. [facility] [place] [facility], had a [facility] scan [...] 20 mL by mouth every 4 hours asneeded.^Disp: 120 mL^Rfl: 0 (Patient not taking: Reported [...] Discussed expected course of illness Whitley Hsieh APRN.WRAPPING CLERK documented in this encounterSam[facility] Hospital Discharge instructions Patient Education 08/13/2022 21:59:10 [...] is covered. So it's best to keep thecast, splint, or boot away from water. If a fiberglass cast or splint gets wet, dry it with a hair spinner on a cool setting. Place an ice [...] doesn t get wet. You may use wwin-dul-xychbzp pain medicine to control pain, unless another [...] cast or splint develops cracks or breaks 9676-[address] [employer] [place] [address]. All rights reserved. This information is not intended as a substitute for professional medical care. Always follow yourhealthcare professional's instructions. Follow Up Care 08/13/2022 20:56:52 With:GEOFFREY PAGE MD Address: [address] [place] [address] [facility] [place] [address] [phone] When:2-4 days [facility] 06-16-2023 Note ORIGINAL EXAMINATION: CT OF THE HEAD [...] resident's findings and interpretation. Interpreted by: Nicolás Hillman Preliminary Report By: Wes Driscoll Electronically signed By Nicolás Hillman Dictated Date: 08/13/2022 9:50:54 PM Prelim Date: 08/13/2022 9:54:57 PM Sign Date: 08/13/2022 10:05:04 PM Ordering Provider: INA [place] [facility]06-16-2023 Note Discharge Instructions Thank you for allowing [facility] to assist you with your healthcare needs. The following is importantdischarge information regarding your hospital visit. Diagnosis from [...] MD When Within 2-4 days Where: [address] [place] [phone] Allergies Naprosyn (Nausea) aspirin (NAUSEA) Medications Please ask your primary doctor or pharmacist before taking any other medication not listed, including over the counter drugs, herbal medications, vitamins and or supplements as they may interact withyour home medications. What How Much When Why [...] Vaginal bleeding Duration: 90 Days Managed by OB-CHIEF COMPLIANCE OFFICER Unchanged nortriptyline (nortriptyline 50 mg oral [...] is covered. So it's best to keep thecast, splint, or boot away from water. If a fiberglass cast or splint gets wet, dry it with a hair spinner on a cool setting. Place an ice [...] doesn t get wet. You may use pemt-obm-tqozppu pain medicine to control pain, unless another [...] cast or splint develops cracks or breaks 4852-[address] [employer] [place] [address]. All rights reserved. This information is not intended as a substitute for professional medical care. Always follow yourhealthcare professional's instructions. Additional Information VACCINATE! IT SAVES LIVES! Members of the community who have not yet received the COVID-19 vaccine and would like to receive it can visit one of [facility] vaccine clinics. There are many vaccine clinic locations within the [facility]. For locations and available times, please visit www.[email or web address].[email or web address].gov/. It is important to note that some COVID mobile vaccine clinics are held outdoors and may be canceled in rainy or stormy conditions. To learn more about pediatric vaccinations (ages 5-11), we invite you to visit the [facility] webpage. https://www.[facility].org/pages/9880-Zywsy-Lffoiuydlts-Ulkarzilif-Vfvlw-Mgk stions.htmlTo learn more about the COVID-19 vaccine, we invite you to visit the CDC website for a list of frequently asked questions. https://www.cdc.gov/coronavirus/2019-ncov/vaccines/faq.html [facility] Patient Portal Access Instructions: Stay connected with your healthcare team and access your personal medical information anytime with the [facility] Patient Portal. If you would like a full copy of your medical records please contact the [facility] Medical Records Department Tuesday through Tuesday between 8a.m. and 4:30p.m. Please follow the directions below to access the portal: 1.Access the email account you provided upon registration to the [facility].2.Look for an invitation email from [facility].3.Open the email and access the invitation link: Accept Invitation to [facility]4.Fill in the required lee to create your account. Sign into [email or web address] with your username and password that you [...] you will allow to register on the [facility] Patient Portal for access to your information. You can also access the [facility] Patient Portal on the [employer]. Simply click on Health Records under Rhapso and then click on the HutGrip logo. HOW TO SAFELY DISPOSE OF PRESCRIPTION MEDICATIONS Please use one of the following methods to safely dispose of your unused medications. 1.Use a drug disposal kit: the drug disposal pouch allows you to safely discard your old and unuseddrugs. Ask your nurse to give you one when you are discharged.2.Visit a local take-back location: Many local pharmacies and police departments have programs that collect old and unwanted prescriptiondrugs. Call your local pharmacy or go to http://Flowgram.Favor/3K1Fv6y to find one close to you.3.Make use of household items: Use cat litter or old coffee grounds to dispose medications if other options arenot available. Mix your drugs with these household products, seal them in an airtight container andthrow it into the garbage. Call [facility]: [phone] to be sure your drugs can be [...] drowsiness, such as benzodiazepines, also known as benzos,including diazepam and alprazolam, muscle relaxants or sleep aids. Never sell or share prescriptionopioids. This is illegal. Store opioids in a [...] aware that I should contact my doctor. Patient/Charrer Signature: Date/Time: Relationship to Patient: Witness Name/Signature: Date/Time: [facility]06-16-2023 Note ORIGINAL EXAMINATION: TWO XRAY VIEWS OF THE RIGHT SHOULDER08/13/2022 9:36 pm COMPARISON: None HISTORY: Reason for exam: Patient fell yesterday FINDINGS: There is no acute fracture or dislocation. There is no radiopaque foreign body. IMPRESSION: No acute osseous abnormality. I have personally reviewed the images of this examination and agree with the resident's findings and interpretation. Interpreted by: Nicolás Hillman Preliminary Report By: Wes Driscoll Electronically signed By Nicolás Hillman Dictated Date: 08/13/2022 9:48:37 PM Prelim Date: 08/13/2022 9:50:40 PM Sign Date: 08/13/2022 10:01:45 PM Ordering Provider: [facility]-16-[facility]23 Note ORIGINAL EXAMINATION: XRAY VIEWS OF THE EXTREMITY 08/13/2022 9:35 pm COMPARISON: None. HISTORY: ORDERING SYSTEM PROVIDED HISTORY: Reason for Exam: fall FINDINGS: A small lucency extends obliquely through the distal fibula. There is normal alignment. No acute joint abnormality. No focal osseous lesion. There is overlying soft tissue edema. IMPRESSION: Oblique nondisplaced fracture of the distal fibula. RECOMMENDATIONS: Unavailable Interpreted by: Nicolás Hillman Preliminary Report By: Nicolás Hillman Electronically signed By Nicolás Hillman Dictated Date: 08/13/2022 9:44:49 PM Prelim Date: 08/13/2022 9:51:40 PM Sign Date: 08/13/2022 9:51:40 PM Ordering Provider: [place] [id number] Note ORIGINAL EXAMINATION: CT OF THE HEAD [...] resident's findings and interpretation. Interpreted by: Nicolás Hillman Preliminary Report By: Wes Driscoll Electronically signed By Nicolás Hillman Dictated Date: 08/13/2022 9:50:54 PM Prelim Date: 08/13/2022 9:54:57 PM Sign Date: 08/13/2022 10:05:04 PM Ordering Provider: [place] [id number] Note ORIGINAL EXAMINATION: TWO XRAY VIEWS OF THE RIGHT SHOULDER08/13/2022 9:36 pm COMPARISON: None HISTORY: Reason for exam: Patient fell yesterday FINDINGS: There is no acute fracture or dislocation. There is no radiopaque foreign body. IMPRESSION: No acute osseous abnormality. I have personally reviewed the images of this examination and agree with the resident's findings and interpretation. Interpreted by: Nicolás Hillman Preliminary Report By: Wes Driscoll Electronically signed By Nicolás Hillman Dictated Date: 08/13/2022 9:48:37 PM Prelim Date: 08/13/2022 9:50:40 PM Sign Date: 08/13/2022 10:01:45 PM Ordering Provider: [facility]06-16-2023 Note ORIGINAL EXAMINATION: XRAY VIEWS OF THE EXTREMITY 08/13/2022 9:35 pm COMPARISON: None. HISTORY: ORDERING SYSTEM PROVIDED HISTORY: Reason for Exam: fall FINDINGS: A small lucency extends obliquely through the distal fibula. There is normal alignment. No acute joint abnormality. No focal osseous lesion. There is overlying soft tissue edema. IMPRESSION: Oblique nondisplaced fracture of the distal fibula. RECOMMENDATIONS: Unavailable Interpreted by: Nicolás Hillman Preliminary Report By: Nicolás Hillman Electronically signed By Nicolás Hillman Dictated Date: 08/13/2022 9:44:49 PM Prelim Date: 08/13/2022 9:51:40 PM Sign Date: 08/13/2022 9:51:40 PM Ordering Provider: [facility]06-16-2023 History of Present illness Narrative* Satnam Rodriguez APRN.MARIA TERESA - 08/13/2022 7:29 PM EDT Patient triaged at [facility]. Here today with fall 2 days ago, hit head, having h/a as well as multi joint pain. I advised patient to go to ER. Unclear what ER patient will go to. documented [facility] History of Present illness Narrative* Valeria Thompson PA-C - 07/28/2022 11:13 AM EDT This note was created using NoteWriter. Subjective Kamala Gray is a 51 year [...] numbness or tingling. She has taken Advil ziha-yux-vmpsffg for pain. Review of Systems Constitutional: Negative. [...] 20 mL by mouth every 4 hours asneeded. (Patient not taking: Reported on 07/28/2022) 120 [...] range of motion of the back. Patient alsohas tenderness to the paraspinal muscles of the [...] the next week. Patient requesting anti-inflammatory, has chronickidney disease and I did write a short course of prednisone. - XR FOREARM GENERAL 2V AP/LAT LEFT - XR CERV OTHER 4V AP/LAT/OBL - XR LUMBAR GENERAL 3V AP/LAT/L5-S1 - XR RIBS/CHEST 3V AP RIB/OBLS/CXR LEFT 2. Unspecified site of sprain and strain - ICD9: 848.9, ICD10: T14.8XXA Valeria Thompson PA-C documented in this encounterSam[facility]05-31-2023 History of Present illness Narrative* Mery Lao, RT(R) - 07/28/2022 10:10 AM EDT Radiology Service Progress Note PATIENT NAME: Kamala Gray DATE OF SERVICE: July 28, 2022 TIME: 10:10 AM PATIENT IDENTITY VERIFICATION COMPLETED USING TWO (2) IDENTIFIERS: Name and Date of confirmedby patient verbally. FALL SCREENING: Has the patient had 2 falls in the last year or 1 fall with injury or currently using an Ambulatory Assistive Device (Walker, Cane, Wheelchair, Crutches, etc.)? Yes, Patient High Riskfor Falls What interventions were put in place to prevent falls during this visit? Instructed Patient to Callfor Help if Needed, Offered Assistance with Transfers/Clothing, [...] RT Mimi(R) July 28, 2022 10:10 AM documented in this encounterSam[facility]03-07-2023 History of Present illness Narrative* Valeria Thompson PA-C - 05/04/2022 3:45 PM EST Images from the original note were not included. This note was created using Useful at Night. Subjective Kamala Gray is a 51 year old female. HPI Presents with abdominal pain since last night. She is also very nauseated and states she has not drink any water today. She feels like her mouth is dry. She is a type II diabetic. Has not checked herblood sugar. Also has kidney disease. Has history [...] 20 mL by mouth every 4 hours asneeded. 120 mL 0 megestrol (MEGACE) 40 mg [...] surrounding the umbilicus with tenderness to palpation onthe inside of the umbilicus. Fluctuance palpated. No [...] in the emergency department. Patient went to [facility]. Report given via ER passport. Valeria Thompson PA-C documented in this encounterSam[facility]02-18-2023 History of Present illness Narrative* Jessica Mcintosh APRN.WRAPPING CLERK - 04/17/2022 1:26 PM EST Images from the original note were not included. Subjective The history is provided by the patient and a relative. No foreign languages professor was used. HPI Kamala Gray is a [...] have confirmed and edited as necessary, the [facility] Review of Systems Constitutional: Negative for [...] for higher level of care were discussed indetail warranting prompt ER evaluation. Jessica Mcintosh APRN.MARIA TERESA documented in this encounterSam[facility]12-30-2022 Miscellaneous Notes* Telephone Encounter - Inez Stoll LPN - 02/26/2022 8:54 AM EST Patient notified.Inez Stoll LPN * Telephone Encounter - Daisy Sarmiento APRN.CNP - 02/26/2022 8:29 AM EST Negative for flu and covid please notify thank you documented in this encounterSam[facility]12-29-2022 History of Present illness Narrative* Ria Montoay APRN.CNP - 02/25/2022 3:21 PM EST CC: Patient presents with: Cough: Chest congestion, [...] plan. Ria Montoya APRN.CNP documented in this encounterSam[facility]10-23-2022 Hospital Discharge instructions Patient Education 12/20/2021 18:16:02 Hypokalemia Hypokalemia Hypokalemia means a low level of potassium in the blood. This most often occurs in people who take water pills (diuretics). It can also occur because of severe vomiting or diarrhea. You may also haveit if you take laxatives for long periods [...] test within the next week, or as advisedby our staff. When to seek medical advice Call your healthcare provider right away if any of the following occur: Increased weakness, fatigue, or muscle cramps Dizziness Call 911 Call 911 if any of the following occur: Irregular heartbeat, extra beats, or very fast heart rate Loss of consciousness [phone] ID [employer]. [address] [place] [address], [place] [address]. All rights reserved. This information is not intended as a substitute for professional medical care. Always follow yourhealthcare professional's instructions. 12/20/2021 18:16:02 Vomiting (Adult) Vomiting [...] and water are not available, use alcohol-based medical coding specialist to keep from spreading the infection to others. Wash your hands for at least 20 seconds. Humming the happy birthday song twice while you wash is aneasy way to make sure you've washed for 20 seconds. Wash your hands after using the toilet, before and after preparing food, before eating food, after changing a diaper, cleaning a wound, caring for a sick person, and blowing your nose, coughing, or sneezing. You should also wash your hands after caring for someone who is sick, touching pet food, ortreats, and touching an animal, or animal waste. [...] Yellow color of the eyes or skin [phone] [employer]. [address] [place] [address]. All rights reserved. This information is not intended as a substitute for professional medical care. Always follow yourhealthcare professional's instructions. Follow Up Care 12/20/2021 13:43:42 With:KEVYN MARTINEZ Address: [address] [facility] [address] [place] [phone] Business (1) When:2-4 days Comments:Use Reglan as needed for nausea. Do not take Reglan with Zofran, Phenergan or other antinausea agents, take potassium as prescribed. Drink plenty of fluids, follow-up with your doctor and GI doctor. Return if worsening or concerning symptoms. With:YSABEL LUTZ Address: [address] [place] [address]- Business (1) When:2-4 days [facility] 10-23-2022 Emergency department Discharge summary Discharge Instructions Thank you for allowing [facility] to assist you with your healthcare needs. The following is importantdischarge information regarding your hospital visit. Diagnosis from Today's Visit Headache Hypokalemia Nausea Vomiting What to Do Next Instructions from Your Care Team No qualifying data available. Post Acute Orders No qualifying data available. You Need to Schedule the Following Appointments Follow Up with KEVYN MARTINEZ When Within 2-4 days Why: Use Reglan as needed for nausea. Do not take Reglan with Zofran, Phenergan or other antinauseaagents, take potassium as prescribed. Drink plenty of fluids, follow-up with your doctor and GI doctor. Return if worsening or concerning symptoms. Where: [address] [place] [address] [phone] Business (1) Follow Up with YSABEL LUTZ When Within 2-4 days Where: [address] [place] [address]- Business (1) Allergies Naprosyn (Nausea) aspirin (NAUSEA) Medications Please ask your primary doctor or pharmacist before taking any other medication not listed, including over the counter drugs, herbal medications, vitamins and or supplements as they may interact withyour home medications. What How Much When Why Instructions Last Dose New metoclopramide (metoclopramide 5 mg oral tablet) 1 tab(s) by mouth Four (4) times a day Duration: 7 Days Printed Prescription New potassium chloride (Potassium Chloride (Qed-Rkws-Tpl M20) 20 mEq oral tablet, extended release) [...] Vaginal bleeding Duration: 90 Days Managed by OB-CHIEF COMPLIANCE OFFICER Unchanged nortriptyline (nortriptyline 50 mg oral [...] Leaflets metoclopramide (oral/injection) (MET [place]) Metozolv ODT, Reglan What is the most important information I [...] you are to develop this movement disorder. Therisk of this side effect is higher in [...] severe diabetic gastroparesis. The injection is also usedto prevent nausea and vomiting caused by chemotherapy [...] or perforation (a hole or tear in yourstomach or intestines); epilepsy or other seizure disorder; [...] you are to develop this movement disorder. Therisk of this side effect is higher in [...] to take the tablet. Use dry hands andtake care not to damage a tablet while [...] may have unpleasant withdrawal symptoms such as headache,dizziness, or nervousness. What happens if I miss [...] have any of these SIGNS OF A SERIOUSMOVEMENT DISORDER, which may occur within the first [...] may report side effects to FDA at 0-721-PQJ-3024. What other drugs will affect metoclopramide? Using [...] may affect metoclopramide. This includes prescription and zlwu-vxk-lgzfnxl medicines, vitamins, and herbal products. Not all [...] to ensure that the information provided by SNTMNT. ('Multum') is accurate, up-to-date, and complete, but no guarantee is made to that effect. Drug information contained herein may be time sensitive. Med[employer].com information has been compiled for use by healthcare practitioners and consumers in the [place] and therefore [employer] does not warrant that uses outside of the [place] are appropriate, unless specifically indicated otherwise. obiwons drug information does not endorse drugs, diagnose patients or recommend therapy. obiwons drug information isan informational resource designed to assist licensed healthcare practitioners in caring for their p atients and/or to serve consumers viewing this service as a supplement to, and not a substitute for, the expertise, skill, knowledge and judgment of healthcare practitioners. The absence of a warningfor a given drug or drug combination in no way should be construed to indicate that the drug or drug combination is safe, effective or appropriate for any given patient. [employer].com does not assume any responsibility for any aspect of healthcare administered with the aid of information Medpricer.com provides. The information contained herein is not intended to cover all possible uses, directions, precautions, warnings, drug interactions, allergic reactions, or adverse effects. If you have questions about the drugs you are taking, check with your doctor, nurse or pharmacist. Copyright 7328-4238 SNTMNT. Version: .. Revision Date: 05/05/2017. potassium chloride (oral/injection) (godwin TASS ee um) Gómez Potassium 99, Klor-Con, K-Tab, Potassium Chloride Proamp What is the most important information I should know about potassium chloride? You should not use this medicine if you have high levels of potassium in your blood (hyperkalemia),or if you also take a 'potassium-sparing' diuretic. What is potassium chloride? Potassium is a mineral that is needed for several functions of your body, especially the beating ofyour heart. Potassium chloride is used to prevent [...] chloride injection is given as a slow infusioninto a vein. A healthcare provider will give [...] may report side effects to FDA at 6-369-JXC-4396. What other drugs will affect potassium chloride? Tell your doctor about all your other medicines, especially: medicine to prevent organ transplant rejection; a diuretic or 'water pill'; or heart or blood pressure medication. This list is not complete. Other drugs may affect potassium chloride, including prescription and sfft-knb-jietprb medicines, vitamins, and herbal products. Not all [...] to ensure that the information provided by [employer]. ('[employer]') is accurate, up-to-date, and complete, but no guarantee is made to that effect. Drug information contained herein may be time sensitive. Medpricer.com information has been compiled for use by healthcare practitioners and consumers in the [place] and therefore Med[employer]er.com does not warrant that uses outside of the [place] are appropriate, unless specifically indicated otherwise. obiwons drug information does not endorse drugs, diagnose patients or recommend therapy. obiwons drug information isan informational resource designed to assist licensed healthcare practitioners in caring for their p atients and/or to serve consumers viewing this service as a supplement to, and not a substitute for, the expertise, skill, knowledge and judgment of healthcare practitioners. The absence of a warningfor a given drug or drug combination in no way should be construed to indicate that the drug or drug combination is safe, effective or appropriate for any given patient. Med[employer]er.com does not assume any responsibility for any aspect of healthcare administered with the aid of information Medpricer.com provides. The information contained herein is not intended to cover all possible uses, directions, precautions, warnings, drug interactions, allergic reactions, or adverse effects. If you have questions about the drugs you are taking, check with your doctor, nurse or pharmacist. Copyright 2573-5269 SNTMNT. Version: 14.. Revision Date: 07/26/2019. Education Materials Hypokalemia Hypokalemia means a low level of potassium in the blood. This most often occurs in people who take water pills (diuretics). It can also occur because of severe vomiting or diarrhea. You may also haveit if you take laxatives for long periods [...] test within the next week, or as advisedby our staff. When to seek medical advice Call your healthcare provider right away if any of the following occur: Increased weakness, fatigue, or muscle cramps Dizziness Call 911 Call 911 if any of the following occur: Irregular heartbeat, extra beats, or very fast heart rate Loss of consciousness [phone] [employer]. [address] [place], [place] [address]. All rights reserved. This information is not intended as a substitute for professional medical care. Always follow yourhealthcare professional's instructions. Vomiting (Adult) Vomiting is a [...] and water are not available, use alcohol-based medical coding specialist to keep from spreading the infection to others. Wash your hands for at least 20 seconds. Humming the happy birthday song twice while you wash is aneasy way to make sure you've washed for 20 seconds. Wash your hands after using the toilet, before and after preparing food, before eating food, after changing a diaper, cleaning a wound, caring for a sick person, and blowing your nose, coughing, or sneezing. You should also wash your hands after caring for someone who is sick, touching pet food, ortreats, and touching an animal, or animal waste. [...] Yellow color of the eyes or skin [phone] [employer]. [address] [place] [address]. All rights reserved. This information is not intended as a substitute for professional medical care. Always follow yourhealthcare professional's instructions. Additional Information VACCINATE! IT SAVES LIVES! Members of the community who have not yet received the COVID-19 vaccine and would like to receive it can visit one of [facility] vaccine clinics. There are many vaccine clinic locations within the [facility]. For locations and available times, please visit [email or web address]. It is important to note that some COVID mobile vaccine clinics are held outdoors and may be canceled in rainy orstormy conditions. To learn more about pediatric vaccinations (ages 5-11), we invite you to visit the [facility] webpage. [email or web address]/[email or web address]-Xmyyhlhufo-Onbvq-Zbj stions.htmlTo learn more about the COVID-19 vaccine, we invite you to visit the [facility] website for a list of frequently asked questions. [email or web address]-slj-[email or web address]/dhkrw-Smqxhdx-Izewsbwuxu _Asked-Questions.pdf [facility] Patient Portal Access Instructions: Stay connected with your healthcare team and access your personal medical information anytime with the [facility] Patient Portal. If you would like a full copy of your medical records please contact the [facility] Medical Records Department Tuesday through Tuesday between 8a.m. and 4:30p.m. Please follow the directions below to access the portal: 1.Access the email account you provided upon registration to the [facility].2.Look for an invitation email from [facility].3.Open the email and access the invitation link: Accept Invitation to [facility]springr4.Fill in the required lee to create your account. Sign into [email or web address].[email or web address] with your username and password that you [...] you will allow to register on the [facility] Patient Portal for access to your information. You can also access the [facility] Patient Portal on the [employer] leigh. Simply click on Health Records under Rhapso and then click on the [employer] logo. HOW TO SAFELY DISPOSE OF PRESCRIPTION MEDICATIONS Please use one of the following methods to safely dispose of your unused medications. 1.Use a drug disposal kit: the drug disposal pouch allows you to safely discard your old and unuseddrugs. Ask your nurse to give you one when you are discharged.2.Visit a local take-back location: Many local pharmacies and police departments have programs that collect old and unwanted prescriptiondrugs. Call your local pharmacy or go to http://[employer]/3G3Jt8l to find one close to you.3.Make use of household items: Use cat litter or old coffee grounds to dispose medications if other options arenot available. Mix your drugs with these household products, seal them in an airtight container andthrow it into the garbage. Call [facility]: [phone] to be sure your drugs can be [...] drowsiness, such as benzodiazepines, also known as benzos,including diazepam and alprazolam, muscle relaxants or sleep aids. Never sell or share prescriptionopioids. This is illegal. Store opioids in a [...] aware that I should contact my doctor. Patient/Charrer Signature: Date/Time: Relationship to Patient: Witness Name/Signature: Date/Time: [facility]09-16-2022 History of Present illness Narrative * Valeria Thompson PA-C - 11/13/2021 3:40 PM EDT This note was created using Kor[employer] Pharmaceuticalsriter. Subjective Kamala Gray is a 51 year old female. HPI Patient presents with a chief complaint of trouble hearing out of her right ear. She had been seen by [facility] and had some wax flushed out of her ear and prescribed amoxicillin as well as Debrox. She states she just feels like she cannot hear out of that ear. Denies any significantpain. No drainage out of the ear. No [...] 2 ml normal saline. Inject SQ 1 ml(250mcg) every 3 days 11 Each 11 levothyroxine [...] Rinse mouth after use. 1 Each 0 nglinaag-havkyosdl-yvfzexzexwxyep (CORTISPORIN) 3.5-10,000-1 mg/mL-unit/mL-% otic suspension Use 3 [...] - ICD9: 380.89, ICD10: H61.891 Cortisporin drops Valeria Thompson PA-C documented in this [facility]22 History of Present illness Narrative* Jac Castillo MD - 10/17/2021 11:55 AM EDT Patient presents with: Diarrhea: vomiting and sob [...] 2 ml normal saline. Inject SQ 1 ml(250mcg) every 3 days levothyroxine (SYNTHROID) 300 mcg [...] in dark exam room. Given assistance by software support specialist while awaiting provider evaluation. Accompanied by her [...] room. Her sister will take her to [facility]. She feels she is too sick sit up and must lie down while waiting at the ER. She declines transport by EMS. [facility] to [facility] by ER passport. Jac Castillo MD documented in this encounterSam[facility]04-13-[facility]22 Hospital Discharge instructions Patient Education 06/10/2021 11:34:53 [...] change your bandages (dressings). If soap and waterare not available, use hand medical coding specialist. ?Change your dressings as told by your [...] your health care provider approves. Ask your healthcare provider if you may take showers. You may only be allowed to take sponge baths. Safety Devices that sends out wireless signals may affect your stimulator. If directed by your health careprovider, avoid the following: ?MRI and ultrasound tests. [...] can be controlled with a remote. Take gnmj-foj-hmalilk and prescription medicines only as told by [...] stimulator, mild pain, muscle soreness, headaches, and bruisingare common. Follow instructions from your health care [...] 03/30/2018 Document Revised: 06/07/2019 Document Reviewed: 03/30/2018 [employer] Patient Education 2019 [employer]. 06/10/2021 11:34:28 Monitored Anesthesia Care, Care After Monitored Anesthesia Care, Care After These instructions provide you with information about caring for yourself after your procedure. Your health care provider may also give you more specific instructions. Your treatment has been plannedaccording to current medical practices, but problems sometimes [...] have someone help care for you until youare awake and alert. Rest as needed. Do [...] before eating solid foods. General instructions Take idre-nyx-oewrmxr and prescription medicines only as told by [...] 06/06/2016 Document Revised: 05/15/2018 Document Reviewed: 06/06/2016 [employer] Patient Education 2020 [employer]. 06/10/2021 11:34:26 Nausea and Vomiting, Adult, Ifxu-vk-Ttvi Nausea and Vomiting, Adult Nausea is feeling [...] doctor about them. Follow these instructions to carefor yourself at home. Eating and drinking Take an ORS (oral rehydration solution). This is a drink that is sold at pharmacies and stores. Drink clear fluids in small amounts as you are able, such as: ?Water. ?Ice chips. ?Fruit juice that has water added (diluted fruit juice). ?Low-calorie sports drinks. Eat bland, ergi-jt-eantlh foods in small amounts as you are able, such as: ?Bananas. ?Applesauce. ?Rice. ?Low-fat (lean) meats. ?[place]. ?Crackers. Avoid drinking fluids that have a lot of sugar or caffeine in them. This includes energy drinks, sports drinks, and soda. Avoid alcohol. Avoid spicy or fatty foods. General instructions Take ukvs-zkx-dsnhvae and prescription medicines only as told by your doctor. Drink enough fluid to keep your pee (urine) pale yellow. Wash your hands often with soap and water. If you cannot use soap and water, use hand medical coding specialist. Make sure that all people in your [...] too much water in your body. Take sohd-xlz-sawnxrj and prescription medicines only as told by [...] 08/02/2008 Document Revised: 06/08/2019 Document Reviewed: 07/25/2018 [employer]ent[employer] Patient Education 2020 You[employer]ern. Follow Up Care 06/05/2021 09:27:39 With:ISAAC JEWELL Address: [address] [place] [address], [address] [facility] [place] [address]- [phone] Business (1) When: Unknown Comments:JUNE 15 2021 3PM [facility] Evaluation + Plan note Future Appointments Appointment Date:11/09/2021 01:00:00 PM Scheduled Provider: Location:[facility] Appointment Type:DB Diabetic Individual Visit Appointment Date:11/19/2021 02:00:00 PM Scheduled Provider:YSABEL LUTZ APRN [employer] MARIA TERESA Location:[facility] Appointment Type: OV Follow Up Future Scheduled Tests Laboratory* Iron Level 11/18/21 * Thyroid Stimulating Hormone 11/18/21 * Free T4 11/18/21 * Uric Acid 11/18/21 * A1C Hemoglobin 11/18/21 * Complete Blood Count 11/18/21 * Lipid Profile 11/18/21 * Microalbumin Level Urine 11/18/21 * Vitamin D Level 11/18/21 * Complete Metabolic Panel 11/18/21 [facility] Evaluation + Plan note Future Appointments Appointment Date:12/22/2021 02:00:00 PM Scheduled Provider:YSABEL LUTZ APRN, CNP Location:[facility] Appointment Type:PC OV Follow Up Appointment Date:02/16/2022 03:00:00 PM Scheduled Provider:YSABEL LUTZ APRN, CNP Location:[facility] Appointment Type:PC OV Follow Up Appointment Date:05/10/2022 01:00:00 PM Scheduled Provider: Location:[facility] Appointment Type:DB Diabetic Individual Visit Appointment Date:05/20/2022 03:00:00 PM Scheduled Provider:YSABEL LUTZ APRN, CNP Location:[facility] Appointment Type:PC OV Follow Up Future Scheduled Tests Laboratory* Renin, Plasma 05/19/22 * Renin, Plasma 02/18/22 * Iron Level 05/19/22 * Iron Level 02/18/22 * Thyroid Stimulating Hormone 05/19/22 * Thyroid Stimulating Hormone 02/18/22 * Free T4 05/19/22 * Free T4 02/18/22 * Vitamin B12 Level 05/19/22 * Vitamin B12 Level 02/18/22 * A1C Hemoglobin 05/19/22 * A1C Hemoglobin 02/18/22 * Complete Blood Count 05/19/22 * Complete Blood Count 02/18/22 * Free T3 05/19/22 * Free T3 02/18/22 * Lipid Profile 05/19/22 * Lipid Profile 02/18/22 * Microalbumin Level Urine 11/18/21 * Microalbumin Level Urine 05/19/22 * Microalbumin Level Urine 02/18/22 * PTH, Intact 05/19/22 * PTH, Intact 02/18/22 * Vitamin D Level 05/19/22 * Vitamin D Level 02/18/22 * Complete Metabolic Panel 05/19/22 * Complete Metabolic Panel 02/18/22 * TIBC 05/19/22 * TIBC 02/18/22 [facility] Evaluation + Plan note Future Appointments Appointment Date:11/22/2022 01:40:00 PM Scheduled Provider:YSABEL LUTZ APRN, CNP Location:[facility] Appointment Type:PC OV Appointment Date:02/04/2023 11:00:00 AM Scheduled Provider: Location:[facility] Appointment Type:DB Diabetic Individual Visit (AOH) Future Scheduled Tests Laboratory* Iron Level 11/20/22 * Thyroid Stimulating Hormone 11/20/22 * Free T4 11/20/22 * A1C Hemoglobin 11/20/22 * Complete Blood Count 11/20/22 * Lipid Profile 11/20/22 * Albumin/Creatinine Ratio, Random Urine 11/20/22 * Microalbumin Level Urine 05/17/22 * Vitamin D Level 11/20/22 * Complete Metabolic Panel 11/20/22 * TIBC 11/20/22 [facility] Evaluation + Plan note Future Appointments Appointment Date:02/04/2023 11:00:00 AM Scheduled Provider: Location:[facility] Appointment Type:DB Diabetic Individual Visit (AOH) Future Scheduled Tests Laboratory* Iron Level 11/20/22 * Thyroid Stimulating Hormone 11/20/22 * Free T4 11/20/22 * A1C Hemoglobin 11/20/22 * Complete Blood Count 11/20/22 * Lipid Profile 11/20/22 * Albumin/Creatinine Ratio, Random Urine 11/20/22 * Microalbumin Level Urine 05/17/22 * Vitamin D Level 11/20/22 * Complete Metabolic Panel 11/20/22 * TIBC 11/20/22 [facility] Evaluation + Plan note Future Appointments Appointment Date:02/04/2023 11:00:00 AM Scheduled Provider: Location:[facility] Appointment Type:DB Diabetic Individual Visit (AOH) Diagnostic Tests Pending * Urine Culture 10/03/22 Future Scheduled Tests Laboratory* Iron Level 11/20/22 * Thyroid Stimulating Hormone 11/20/22 * Free T4 11/20/22 * A1C Hemoglobin 11/20/22 * Complete Blood Count 11/20/22 * Lipid Profile 11/20/22 * Albumin/Creatinine Ratio, Random Urine 11/20/22 * Microalbumin Level Urine 05/17/22 * Vitamin D Level 11/20/22 * Complete Metabolic Panel 11/20/22 * TIBC 11/20/22 [facility] Evaluation + Plan note Future Appointments Appointment Date:02/04/2023 11:00:00 AM Scheduled Provider: Location:[facility] Appointment Type:DB Diabetic Individual Visit (AOH) Diagnostic Tests Pending * Urine Culture 12/24/22 Future Scheduled Tests Laboratory* Iron Level 11/20/22 * Thyroid Stimulating Hormone 11/20/22 * Free T4 11/20/22 * A1C Hemoglobin 11/20/22 * Complete Blood Count 11/20/22 * Lipid Profile 11/20/22 * Albumin/Creatinine Ratio, Random Urine 11/20/22 * Microalbumin Level Urine 05/17/22 * Vitamin D Level 11/20/22 * Complete Metabolic Panel 11/20/22 * TIBC 11/20/22 [facility] Evaluation + Plan note Future Appointments Appointment Date:02/04/2023 11:00:00 AM Scheduled Provider: Location:[facility] Appointment Type:DB Diabetic Individual Visit (AOH) Diagnostic Tests Pending * Urine Culture 01/23/23 Future Scheduled Tests Laboratory* Iron Level 11/20/22 * Thyroid Stimulating Hormone 11/20/22 * Free T4 11/20/22 * A1C Hemoglobin 11/20/22 * Complete Blood Count 11/20/22 * Lipid Profile 11/20/22 * Albumin/Creatinine Ratio, Random Urine 11/20/22 * Microalbumin Level Urine 05/17/22 * Vitamin D Level 11/20/22 * Complete Metabolic Panel 11/20/22 * TIBC 11/20/22 [facility] Evaluation note* Diagnosis Nausea vomiting and diarrhea- Primary Diarrhea Malaise and fatigue Other malaise and fatigue [facility] Diagnosis Middle ear effusion, right- Primary Irritation of external ear canal, right [facility] Diagnosis Viral URI with cough- Primary Acute upper respiratory infections of unspecified site Exacerbation of asthma, unspecified asthma severity, unspecified whether persistent [facility] Diagnosis Post-nasal drainage- Primary Unspecified sinusitis (chronic) Neck pain Cervicalgia [facility] Diagnosis Cellulitis of skin- Primary Cellulitis and abscess of unspecified site [facility]* Diagnosis Fall, initial encounter- Primary Unspecified site of sprain and strain [facility]* Diagnosis Injury of head, initial encounter- Primary [facility]* Diagnosis Headache, unspecified headache type- Primary Nausea Nausea alone [facility] Diagnosis Intertrigo- Primary Other specified erythematous condition Skin sore Unspecified disorder of skin and subcutaneous tissue Bronchitis Bronchitis, not specified as acute or chronic documented in this encounter [facility] note* Diagnosis Acute midline low back pain without sciatica- Primary Fatigue, unspecified type documented in this encounter [facility] note* Diagnosis Headache, unspecified headache type- Primary documented in this encounter [facility] note* Diagnosis Leg cramps- Primary Cramp of limb documented in this encounter [facility] note* Diagnosis Headache, unspecified headache type- Primary Nausea Nausea alone documented in this encounter [facility] note* Diagnosis Closed fracture of right foot, initial encounter- Primary Injury of right lower extremity, initial encounter documented in this encounter [facility] note* Diagnosis Foot pain, right- Primary Pain in limb Acute right ankle pain documented in this encounter [facility] note* Diagnosis Right leg swelling- Primary Swelling of limb documented in this encounter [facility] note* Diagnosis Intertrigo- Primary Other specified erythematous condition documented in this encounter [facility] note* Diagnosis Generalized weakness- Primary Other malaise and fatigue SOB (shortness of breath) Shortness of breath documented in this encounter [facility] note* Diagnosis Pain of right great toe documented in this encounter [facility] note* Diagnosis Foot pain, right Pain in limb Acute right ankle pain documented in this encounter [facility] note* Diagnosis Left ankle injury, initial encounter documented in this encounter [facility] note* Diagnosis Fall, initial encounter documented in this encounter [facility] note* Diagnosis Fungal infection of skin- Primary Dermatomycosis, unspecified documented in this encounter [facility] note* Diagnosis Acute gout of right foot, unspecified cause- Primary Skin irritation Unspecified disorder of skin and subcutaneous tissue documented in this encounter [facility] course Narrative No data available for this section [facility] Hospital Discharge instructions No data available for this section [facility] Progress note No data available for this section [facility] Reason for referral (narrative)* Diagnostic Procedure Only (Urgent) - Closed Specialty Diagnoses / Procedures Referred By Contac t Referred To Contact XR IMAGING Diagnoses Fall, initial encounter Procedures XR RIBS/CHEST 3V AP RIB/OBLS/CXR LEFT RADEX RIBS UNI W/POSTEROANT CH MINIMUM 3 VIEWS Valeria Thompson PA-C [address] [place] [address] Xr Imaging Referral ID Status Reason Start Date Expiration Date V isits Requested Visits Authorized [id number] Closed Auto-Generate d Referral 07/28/2022 08/27/2023 1 1 * Diagnostic Procedure Only (Urgent) - Closed Specialty Diagnoses / Procedures Referred By Contac t Referred To Contact XR IMAGING Diagnoses Fall, initial encounter Procedures XR LUMBAR GENERAL 3V AP/LAT/L5-S1 RADEX SPINE LUMBOSACRAL 2/3 VIEWS Valeria Thompson PA-C [address] [place] [address] Xr Imaging Referral ID Status Reason Start Date Expiration Date V isits Requested Visits Authorized [id number] Closed Auto-Generate d Referral 07/28/2022 08/27/2023 1 1 * Diagnostic Procedure Only (Urgent) - Closed Specialty Diagnoses / Procedures Referred By Contac t Referred To Contact XR IMAGING Diagnoses Fall, initial encounter Procedures XR CERV OTHER 4V AP/LAT/OBL RADEX SPINE CERVICAL 4 OR 5 VIEWS Valeria Thompson PA-C [address] [place] [address] Xr Imaging Referral ID Status Reason Start Date Expiration Date V isits Requested Visits Authorized [id number] Closed Auto-Generate d Referral 07/28/2022 08/27/2023 1 1 * Diagnostic Procedure Only (Urgent) - Closed Specialty Diagnoses / Procedures Referred By Contac t Referred To Contact XR IMAGING Diagnoses Fall, initial encounter Procedures XR FOREARM GENERAL 2V AP/LAT LEFT RADEX FOREARM 2 VIEWS Valeria Thompson PA-C [address] [place] [address] Xr Imaging Referral ID Status Reason Start Date Expiration Date V isits Requested Visits Authorized [id number] Closed Auto-Generate d Referral 07/28/2022 08/27/2023 1 1 [facility] for referral (narrative)* Diagnostic Procedure Only (Urgent) - Closed Specialty Diagnoses / Procedures Referred By Contac t Referred To Contact XR IMAGING Diagnoses Foot pain, right Acute right ankle pain Procedures XR ANKLE GENERAL 3V AP/LAT/OBL RIGHT RADEX ANKLE COMPLETE MINIMUM 3 VIEWS Isaac Valentine APRN.WRAPPING CLERK [address] [place] [address] [place] [address] Referral ID Status Reason Start Date Expiration Date V isits Requested Visits Authorized [id number] Closed Auto-Generate d Referral 05/04/2023 06/02/2024 1 1 * Diagnostic Procedure Only (Urgent) - Closed Specialty Diagnoses / Procedures Referred By Contac t Referred To Contact XR IMAGING Diagnoses Foot pain, right Acute right ankle pain Procedures XR FOOT GENERAL 3V AP/LAT/OBL RIGHT RADEX FOOT COMPLETE MINIMUM 3 VIEWS Isaac Valentine, BLOOD BANK SPECIALIST.WRAPPING CLERK [address] [place] [address] [place] [address] Referral ID Status Reason Start Date Expiration Date V isits Requested Visits Authorized [id number] Closed Auto-Generate d Referral 05/04/2023 06/02/2024 1 1 [facility] for referral (narrative)* Diagnostic Procedure Only (Urgent) - Closed Specialty Diagnoses / Procedures Referred By Contac t Referred To Contact XR IMAGING Diagnoses Pain of right great toe Procedures XR TOE AP/LAT/OBL RIGHT RADEX TOE MINIMUM 2 VIEWS [facility] [address] [place] [address] [place] [address] Referral ID Status Reason Start Date Expiration Date V isits Requested Visits Authorized [id number] Closed Auto-Generate d Referral 03/16/2023 04/14/2024 1 1 [facility] for referral (narrative)* Diagnostic Procedure Only (Urgent) - Closed Specialty Diagnoses / Procedures Referred By Contac t Referred To Contact XR IMAGING Diagnoses Foot pain, right Acute right ankle pain Procedures XR ANKLE GENERAL 3V AP/LAT/OBL RIGHT RADEX ANKLE COMPLETE MINIMUM 3 VIEWS Isaac Valentine APRN.WRAPPING CLERK [address] [place] [address] [place] [address] Referral ID Status Reason Start Date Expiration Date V isits Requested Visits Authorized [id number] Closed Auto-Generate d Referral 05/04/2023 06/02/2024 1 1 * Diagnostic Procedure Only (Urgent) - Closed Specialty Diagnoses / Procedures Referred By Contac t Referred To Contact XR IMAGING Diagnoses Foot pain, right Acute right ankle pain Procedures XR FOOT GENERAL 3V AP/LAT/OBL RIGHT RADEX FOOT COMPLETE MINIMUM 3 VIEWS Isaac Valentine APRN.WRAPPING CLERK [address] [place] [address] [place] [address] Referral ID Status Reason Start Date Expiration Date V isits Requested Visits Authorized [id number] Closed Auto-Generate d Referral 05/04/2023 06/02/2024 1 1 [facility] for referral (narrative)* Diagnostic Procedure Only (Urgent) - Closed Specialty Diagnoses / Procedures Referred By Contac t Referred To Contact XR IMAGING Diagnoses Left ankle injury, initial encounter Procedures XR ANKLE GENERAL 3V AP/LAT/OBL LEFT RADEX ANKLE COMPLETE MINIMUM 3 VIEWS Whitley Hsieh APRN.CNP [address] [place] [address] [place] [address] Referral ID Status Reason Start Date Expiration Date V isits Requested Visits Authorized [id number] Closed Auto-Generate d Referral 08/05/2022 09/04/2023 1 1 [facility] for referral (narrative)* Diagnostic Procedure Only (Urgent) - Closed Specialty Diagnoses / Procedures Referred By Contac t Referred To Contact XR IMAGING Diagnoses Fall, initial encounter Procedures XR RIBS/CHEST 3V AP RIB/OBLS/CXR LEFT RADEX RIBS UNI W/POSTEROANT CH MINIMUM 3 VIEWS Valeria Thompson PA-C [address] [place] [address] [place] [address] Referral ID Status Reason Start Date Expiration Date V isits Requested Visits Authorized [id number] Closed Auto-Generate d Referral 07/28/2022 08/27/2023 1 1 * Diagnostic Procedure Only (Urgent) - Closed Specialty Diagnoses / Procedures Referred By Contac t Referred To Contact XR IMAGING Diagnoses Fall, initial encounter Procedures XR LUMBAR GENERAL 3V AP/LAT/L5-S1 RADEX SPINE LUMBOSACRAL 2/3 VIEWS Valeria Thompson PA-C [address] [place] [address] [place] [address] Referral ID Status Reason Start Date Expiration Date V isits Requested Visits Authorized [id number] Closed Auto-Generate d Referral 07/28/2022 08/27/2023 1 1 * Diagnostic Procedure Only (Urgent) - Closed Specialty Diagnoses / Procedures Referred By Contac t Referred To Contact XR IMAGING Diagnoses Fall, initial encounter Procedures XR CERV OTHER 4V AP/LAT/OBL RADEX SPINE CERVICAL 4 OR 5 VIEWS Valeria Thompson PA-C [address] [place] [address] [place] [address] Referral ID Status Reason Start Date Expiration Date V isits Requested Visits Authorized [id number] Closed Auto-Generate d Referral 07/28/2022 08/27/2023 1 1 * Diagnostic Procedure Only (Urgent) - Closed Specialty Diagnoses / Procedures Referred By Contac t Referred To Contact XR IMAGING Diagnoses Fall, initial encounter Procedures XR FOREARM GENERAL 2V AP/LAT LEFT RADEX FOREARM 2 VIEWS Valeria Thompson PA-C [address] [place] [address] [place] [address] Referral ID Status Reason Start Date Expiration Date V isits Requested Visits Authorized [id number] Closed Auto-Generate d Referral 07/28/2022 08/27/2023 1 1 [facility] for visit Narrative* Diagnostic Procedure Only (Urgent) - Closed Specialty Diagnoses / Procedures Referred By Contac t Referred To Contact XR IMAGING Diagnoses Pain of right great toe Procedures XR TOE AP/LAT/OBL RIGHT RADEX TOE MINIMUM 2 VIEWS [facility] [address] [place] [address] [place] [address] Referral ID Status Reason Start Date Expiration Date V isits Requested Visits Authorized [id number] Closed Auto-Generate d Referral 03/16/2023 04/14/2024 1 1 [facility] for visit Narrative* Diagnostic Procedure Only (Urgent) - Closed Specialty Diagnoses / Procedures Referred By Contac t Referred To Contact XR IMAGING Diagnoses Foot pain, right Acute right ankle pain Procedures XR ANKLE GENERAL 3V AP/LAT/OBL RIGHT RADEX ANKLE COMPLETE MINIMUM 3 VIEWS Isaac Valentine, BLOOD BANK SPECIALIST.WRAPPING CLERK [address] [place] [address] [place] [address] Referral ID Status Reason Start Date Expiration Date V isits Requested Visits Authorized [id number] Closed Auto-Generate d Referral 05/04/2023 06/02/2024 1 1 [facility] for visit Narrative* Diagnostic Procedure Only (Urgent) - Closed Specialty Diagnoses / Procedures Referred By Contac t Referred To Contact XR IMAGING Diagnoses Injury of right lower extremity, initial encounter Procedures XR ANKLE GENERAL 3V AP/LAT/OBL RIGHT RADEX ANKLE COMPLETE MINIMUM 3 VIEWS Satnam Rodriguez, BLOOD BANK SPECIALIST.WRAPPING CLERK [address] [place] [address] [place] [address] Referral ID Status Reason Start Date Expiration Date V isits Requested Visits Authorized [id number] Closed Auto-Generate d Referral 04/15/2023 05/14/2024 1 1 [facility] for visit Narrative* Diagnostic Procedure Only (Urgent) - Closed Specialty Diagnoses / Procedures Referred By Contac t Referred To Contact XR IMAGING Diagnoses Left ankle injury, initial encounter Procedures XR ANKLE GENERAL 3V AP/LAT/OBL LEFT RADEX ANKLE COMPLETE MINIMUM 3 VIEWS Whitley Hsieh, BLOOD BANK SPECIALIST.WRAPPING CLERK [address] [place] [address] [place] [address] Referral ID Status Reason Start Date Expiration Date V isits Requested Visits Authorized [id number] Closed Auto-Generate d Referral 08/05/2022 09/04/2023 1 1 [facility] for visit Narrative* Diagnostic Procedure Only (Urgent) - Closed Specialty Diagnoses / Procedures Referred By Contac t Referred To Contact XR IMAGING Diagnoses Fall, initial encounter Procedures XR RIBS/CHEST 3V AP RIB/OBLS/CXR LEFT RADEX RIBS UNI W/POSTEROANT CH MINIMUM 3 VIEWS Valeria Thompson, PARaulC [address] [place] [address] [place] [address] Referral ID Status Reason Start Date Expiration Date V isits Requested Visits Authorized [id number] Closed Auto-Generate d Referral 07/28/2022 08/27/2023 1 1 [facility] note* YVAN Michael: PERFORM Event Display: Patient Summary Documents Authored Date: [id number] [facility] Reason for Referral Status Reason Specialty Diagnoses / Procedures Re ferred By Contact Referred To Contact Open Pulmonary Disease Diagnoses Dyspnea, unspecified type Procedures Full PFT Study With Bronchodilator Mariela Vasquez MD [address] [place] [address] Specialty Diagnoses / Procedures Referred By Contac t Referred To Contact Podiatry Diagnoses Closed fracture of right foot, initial encounter Procedures CONSULT TO PODIATRY OFFICE/OUTPATIENT [facility] 60 MINUTES Satnam Rodriguez, MICAH.WRAPPING CLERK [address] [place] [address] Referral ID Status Reason Start Date Expiration Date Visits Requested Visits Authorized [id number] Authorized PCP Requested Referral 04/15/2023 04/14/2024 1 1 Specialty Diagnoses / Procedures Referred By Contac t Referred To Contact XR IMAGING Diagnoses Injury of right lower extremity, initial encounter Procedures XR ANKLE GENERAL 3V AP/LAT/OBL RIGHT RADEX ANKLE COMPLETE MINIMUM 3 VIEWS Satnam Rodriguez, BLOOD BANK SPECIALIST.WRAPPING CLERK [address] [place] [address] [place] [address] Referral ID Status Reason Start Date Expiration Date V isits Requested Visits Authorized [id number] Closed Auto-Generate d Referral 04/15/2023 05/14/2024 1 1 Specialty Diagnoses / Procedures Referred By Contac t Referred To Contact XR IMAGING Diagnoses Injury of right lower extremity, initial encounter Procedures XR FOOT GENERAL 3V AP/LAT/OBL RIGHT RADEX FOOT COMPLETE MINIMUM 3 VIEWS Satnam Rodriguez, BLOOD BANK SPECIALIST.WRAPPING CLERK [address] [place] [address] [place] [address] Referral ID Status Reason Start Date Expiration Date V isits Requested Visits Authorized [id number] Closed Auto-Generate d Referral 04/15/2023 05/14/2024 1 1 Assessments Diagnosis Dyspnea, unspecified type Health Concerns [...] Advanced Directives Records FoundNo Advanced Directives Records FoundNo Advanced Directives Records Found Additional Source Comments Care Team (unrecognized sect ion and content) Discharge Coordinator Relationship Specialty Start Date End Date Milan Cervantes [address] [place] [address] PCP - General 11/10/06 Discharge Coordinator Relationship Specialty Start Date End Date Milan Cervantes [address] [place] [phone] PCP - General 11/10/06 Discharge Coordinator Relationship Specialty Start Date End Date Ysabel Lutz, WRAPPING CLERK [address] [facility] [place] [address] PCP - General Family Medicine 02/25/22 Discharge Coordinator Relationship Specialty Start Date End Date Ysabel Lutz, WRAPPING CLERK [address] [facility] [place] [address] PCP - General Family Medicine 02/25/22 Discharge Coordinator Relationship Specialty Start Date End Date Ysabel Lutz, WRAPPING CLERK [address] [facility] [place] [address] PCP - General Family Medicine 02/25/22 Discharge Coordinator Relationship Specialty Start Date End Date Ysabel Lutz, WRAPPING CLERK [address] [facility] [place], [place] [address] PCP - General Family Medicine 02/25/22 Discharge Coordinator Relationship Specialty Start Date End Date Daniel Clifton Chi [address] [place], [place] [id number] PCP - General Gerontology 07/28/22 Discharge Coordinator Relationship Specialty Start Date End Date Clifton Sanchez Chi [address] [place] [address] PCP - General Gerontology 07/28/22 Discharge Coordinator Relationship Specialty Start Date End Date Daniel Clifton Chi [address] [place] [address] PCP - General Gerontology 07/28/22 Discharge Coordinator Relationship Specialty Start Date End Date Aram Johnson DO [address] [place], [place] [id number] PCP - General Family Medicine 12/14/22 Discharge Coordinator Relationship Specialty Start Date End Date Alex, Aram M, DO [address] [place] [address] PCP - General Family Medicine 12/14/22 Discharge Coordinator Relationship Specialty Start Date End Date Aram Johnson DO [address] [place] [address] PCP - General Family Medicine 12/14/22 Discharge Coordinator Relationship Specialty Start Date End Date Aram Johnson DO [address] [place] [address] PCP - General Family Medicine 12/14/22 Discharge Coordinator Relationship Specialty Start Date End Date Aram Johnson DO [address] [place] [address] PCP - General Family Medicine 12/14/22 Discharge Coordinator Relationship Specialty Start Date End Date Aram Johnson DO [address] [place] [address] PCP - General Family Medicine 12/14/22 Discharge Coordinator Relationship Specialty Start Date End Date Aram Johnson DO [address] [place] [address] PCP - General Family Medicine 12/14/22 Discharge Coordinator Relationship Specialty Start Date End Date Aram Johnson DO [address] [place] [address] PCP - General Family Medicine 12/14/22 Discharge Coordinator Relationship Specialty Start Date End Date Aram Johnson M, DO [address] [place] [address] PCP - General Family Medicine 12/14/22 Discharge Coordinator Relationship Specialty Start Date End Date Aram Johnson, DO [address] [place] [address] PCP - General Family Medicine 12/14/22 Discharge Coordinator Relationship Specialty Start Date End Date Aram Johnson, DO [address] [place] [address] PCP - General Family Medicine 12/14/22 Discharge Coordinator Relationship Specialty Start Date End Date Gil Johnsonarminda Bose DO [address] [place] [address] PCP - General Family Medicine 12/14/22 Discharge Coordinator Relationship Specialty Start Date End Date DanielClifton Chi [address] [place] [address] PCP - General Gerontology 07/28/22 11/15/22 Discharge Coordinator Relationship Specialty Start Date End Date DanielClifton Chi [address] [place] [address] PCP - General Gerontology 07/28/22 11/15/22 Discharge Coordinator Relationship Specialty Start Date End Date Nasreen Bernabe MD [address] [place] [address] PCP - General Internal Medicine 11/24/23 Discharge Coordinator Relationship Specialty Start Date End Date Nasreen Bernabe MD [address] [place] [address] PCP - General Internal Medicine 11/24/23 Source Comments (unrecognize d section and content) In the event this informatio n is protected by the Federal Confidentiality of Alcohol and Drug Abuse Patient Records regulations: The Federal rules restrict any use of the information to criminally investigate or prosecute any alcohol or drug abuse patient.[facility] the event this information is protected by the Federal Confidentiality of Alcohol and Drug Abuse Patient Records regulations: The Federal rules restrict any use of the information to criminally investigate or prosecute any alcohol or drug abuse patient.[facility] CenterIn the event this information is protected by the Federal Confidentiality of Alcohol and Drug Abuse Patient Records regulations: The Federal rules restrict any use of the information to criminally investigate or prosecute any alcohol or drug abuse patient.[facility] CenterIn the event this information is protected by the Federal Confidentiality of Alcohol and Drug Abuse Patient Records regulations: The Federal rules restrict any use of the information to criminally investigate or prosecute any alcohol or drug abuse patient.[facility] CenterIn the event this information is protected by the Federal Confidentiality of Alcohol and Drug Abuse Patient Records regulations: The Federal rules restrict any use of the information to criminally investigate or prosecute any alcohol or drug abuse patient.[facility]In the event this information is protected by the Federal Confidentiality of Alcohol and Drug Abuse Patient Records regulations: The Federal rules restrict any use of the information to criminally investigate or prosecute any alcohol or drug abuse patient.[facility] CenterIn the event this information is protected by the Federal Confidentiality of Alcohol and Drug Abuse Patient Records regulations: The Federal rules restrict any use of the information to criminally investigate or prosecute any alcohol or drug abuse patient.[facility] CenterIn the event this information is protected by the Federal Confidentiality of Alcohol and Drug Abuse Patient Records regulations: The Federal rules restrict any use of the information to criminally investigate or prosecute any alcohol or drug abuse patient.[facility] CenterIn the event this information is protected by the Federal Confidentiality of Alcohol and Drug Abuse Patient Records regulations: The Federal rules restrict any use of the information to criminally investigate or prosecute any alcohol or drug abuse patient.[facility] CenterIn the event this information is protected by the Federal Confidentiality of Alcohol and Drug Abuse Patient Records regulations: The Federal rules restrict any use of the information to criminally investigate or prosecute any alcohol or drug abuse patient.[facility] CenterIn the event this information is protected by the Federal Confidentiality of Alcohol and Drug Abuse Patient Records regulations: The Federal rules restrict any use of the information to criminally investigate or prosecute any alcohol or drug abuse patient.[facility] CenterIn the event this information is protected by the Federal Confidentiality of Alcohol and Drug Abuse Patient Records regulations: The Federal rules restrict any use of the information to criminally investigate or prosecute any alcohol or drug abuse patient.[facility] CenterIn the event this information is protected by the Federal Confidentiality of Alcohol and Drug Abuse Patient Records regulations: The Federal rules restrict any use of the information to criminally investigate or prosecute any alcohol or drug abuse patient.[facility] CenterIn the event this information is protected by the Federal Confidentiality of Alcohol and Drug Abuse Patient Records regulations: The Federal rules restrict any use of the information to criminally investigate or prosecute any alcohol or drug abuse patient.[facility] CenterIn the event this information is protected by the Federal Confidentiality of Alcohol and Drug Abuse Patient Records regulations: The Federal rules restrict any use of the information to criminally investigate or prosecute any alcohol or drug abuse patient.[facility] CenterIn the event this information is protected by the Federal Confidentiality of Alcohol and Drug Abuse Patient Records regulations: The Federal rules restrict any use of the information to criminally investigate or prosecute any alcohol or drug abuse patient.[facility] CenterIn the event this information is protected by the Federal Confidentiality of Alcohol and Drug Abuse Patient Records regulations: The Federal rules restrict any use of the information to criminally investigate or prosecute any alcohol or drug abuse patient.[facility] CenterIn the event this information is protected by the Federal Confidentiality of Alcohol and Drug Abuse Patient Records regulations: The Federal rules restrict any use of the information to criminally investigate or prosecute any alcohol or drug abuse patient.[facility] CenterIn the event this information is protected by the Federal Confidentiality of Alcohol and Drug Abuse Patient Records regulations: The Federal rules restrict any use of the information to criminally investigate or prosecute any alcohol or drug abuse patient.[facility] CenterIn the event this information is protected by the Federal Confidentiality of Alcohol and Drug Abuse Patient Records regulations: The Federal rules restrict any use of the information to criminally investigate or prosecute any alcohol or drug abuse patient.[facility] CenterIn the event this information is protected by the Federal Confidentiality of Alcohol and Drug Abuse Patient Records regulations: The Federal rules restrict any use of the information to criminally investigate or prosecute any alcohol or drug abuse patient.[facility] CenterIn the event this information is protected by the Federal Confidentiality of Alcohol and Drug Abuse Patient Records regulations: The Federal rules restrict any use of the information to criminally investigate or prosecute any alcohol or drug abuse patient.[facility] CenterIn the event this information is protected by the Federal Confidentiality of Alcohol and Drug Abuse Patient Records regulations: The Federal rules restrict any use of the information to criminally investigate or prosecute any alcohol or drug abuse patient.[facility] CenterIn the event this information is protected by the Federal Confidentiality of Alcohol and Drug Abuse Patient Records regulations: The Federal rules restrict any use of the information to criminally investigate or prosecute any alcohol or drug abuse patient.[facility] CenterIn the event this information is protected by the Federal Confidentiality of Alcohol and Drug Abuse Patient Records regulations: The Federal rules restrict any use of the information to criminally investigate or prosecute any alcohol or drug abuse patient.[facility] CenterIn the event this information is protected by the Federal Confidentiality of Alcohol and Drug Abuse Patient Records regulations: The Federal rules restrict any use of the information to criminally investigate or prosecute any alcohol or drug abuse patient.[facility] CenterIn the event this information is protected by the Federal Confidentiality of Alcohol and Drug Abuse Patient Records regulations: The Federal rules restrict any use of the information to criminally investigate or prosecute any alcohol or drug abuse patient.[facility] CenterIn the event this information is protected by the Federal Confidentiality of Alcohol and Drug Abuse Patient Records regulations: The Federal rules restrict any use of the information to criminally investigate or prosecute any alcohol or drug abuse patient.[facility] CenterIn the event this information is protected by the Federal Confidentiality of Alcohol and Drug Abuse Patient Records regulations: The Federal rules restrict any use of the information to criminally investigate or prosecute any alcohol or drug abuse patient.[facility] Reason for Visit (unrecogniz ed section and content) Reason Comments Diarrhea vomiting and sob x 1 4 days Reason Comments Ear Problem Pt reported (RT) [...] Reason Comments Leg Cramps x last night Reason Comments Headache WILSON and stomach hurts x 2 days Reason Comments Trauma RLE swelling pain an d un healing wound x 3 weeks Reason Comments right ankle and heel pain X 1 month-elisha ot recall an injury this time Reason Comments Pain (foot) Reason Comments Rash ? yeast infection un js left breast x 2-3 days Reason Comments Rash R armpit and groin x 2 weeks Reason Comments Pain (foot) right ? gout x 1 day , sore on back of head ? 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 Position: P4 Advanced Practice Nurse Med Service: Employed Provider Member Role: Primary Care Physician Address: Address: [address] [place] [address]- Care Team Related Persons Name: MANOJ NOLASCO Administered Medications - up to 3 most recent administrations Administered Medications (un recognized section and content) Medication Order MAR Action Action Date Dose Rate Site keTORolac 60 mg injection (Toradol) 60 mg, INTRAMUSCULAR, ONCE, 1 dose, On Deloris 03/31/23 at 1130, Ketorolac (Toradol) is indicated for the short-term [...] of the opioid, if preferred: Yes Given 03/31/2023 11:24 AM EST 60 mg Buttocks, Right INFORMATION SOURCE (unrecogn ized section and content) DATE CREATED AUTHOR 10/24/2023 [facility] ([place]) DATE CREATED AUTHOR AUTHOR'S ORGANIZ ATION 12/02/2023 [facility] DATE CREATED AUTHOR AUTHOR'S ORGANIZ ATION 12/22/2023 [facility] FOR RECORDS PERTAINING TO PATIENTS WHO ARE [...] BE BASED ON THE PRIMARY CLINICAL RECORDS. [facility] [employer] [facility]. provides no warranty or guarantee of the accuracy or completeness of information in this document.
[2024-01-03 21:54] VITALS: BP 102/69; PULSE 87; RESP 18; TEMP 37.2; O2SAT 92
== END 2024-01-03 21:59 | disposition home or self-care (01) ==
PROVIDERS: Emergency Provider Emergency Medicine; PCP Family Medicine; Visit Provider Emergency Medicine
DX: S70.01XA Contusion of right hip, initial encounter (principal); J44.9 Chronic obstructive pulmonary disease, unspecified; V49.40XA Driver injured in collision with unspecified motor vehicles in traffic accident, initial encounter; I10 Essential (primary) hypertension; E78.00 Pure hypercholesterolemia, unspecified; Z79.51 Long term (current) use of inhaled steroids; Z79.899 Other long term (current) drug therapy
CPT/HCPCS: 72131; 73502; 99285

== ENCOUNTER 2024-01-06 08:24 | Emergency (ER) | payer MEDICARE, MEDICAID, SELFPAY ==
[2024-01-06 08:25] VITALS: BP 152/102; PULSE 88; RESP 18; TEMP 36.7; O2SAT 98; BMI 52.9
[2024-01-06] MEDS: Ibuprofen 200 MG Tablet 400 MG PO (09:04)
[2024-01-06] MEDS: Ondansetron ODT 4 MG Tablet PO (09:04)
[2024-01-06 09:05] VITALS: BP 142/64; PULSE 76; RESP 16; TEMP 37; O2SAT 99
== END 2024-01-06 09:06 | disposition home or self-care (01) ==
PROVIDERS: Emergency Provider Emergency Medicine; PCP Family Medicine; Visit Provider Emergency Medicine
DX: R53.81 Other malaise (principal); J44.9 Chronic obstructive pulmonary disease, unspecified; R53.83 Other fatigue; S06.0X0A Concussion without loss of consciousness, initial encounter; T14.8XXA Other injury of unspecified body region, initial encounter; V99.XXXA Unspecified transport accident, initial encounter; E03.9 Hypothyroidism, unspecified; I25.10 Atherosclerotic heart disease of native coronary artery without angina pectoris; I10 Essential (primary) hypertension; E78.00 Pure hypercholesterolemia, unspecified; Z79.51 Long term (current) use of inhaled steroids; Z79.899 Other long term (current) drug therapy
CPT/HCPCS: 99285

== ENCOUNTER 2024-01-13 14:56 | Emergency (ER) | payer MEDICARE, MEDICAID, SELFPAY ==
[2024-01-13 14:57] VITALS: BP 150/86; PULSE 77; RESP 16; TEMP 36.6; O2SAT 99; BMI 52.7
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
--- NOTE | 2024-01-13 15:25 | RAD_ITS ---
HISTORY: cough pleuritic CP. TECHNIQUE: XR Chest 2 Views. COMPARISON: 11/21/2023. FINDINGS: CARDIOMEDIASTINAL BORDERS: Cardiac silhouette again upper limits of normal in size. Mediastinal contour unremarkable. LUNGS: Radiographically clear. PLEURA: No pleural effusion or pneumothorax seen. OSSEOUS STRUCTURES: Unremarkable. RAD/Chest PA and Lateral IMPRESSION: No acute cardiopulmonary process identified. Electronically Signed: Lorna Cali MD at 15:37 EST ,
[2024-01-13 15:43] LABS: Absolute Lymphocyte Count 2.24 X10^3/uL (0.83-4.51); Absolute Neutrophil Count 6.5 X10^3/uL (2.0-7.7); Basophil# 0.08 X10^3/uL; Basophil% 0.8 % (0-1); Eosinophil# 0.52 X10^3/uL; Eosinophils% 5.1 % (0-5); Hematocrit 37.2 % (37-47); Lymphocyte # 2.24 X10^3/ul (0.83-4.51); Lymphocyte % 21.9 % (19-41); Mean Corp Hgb Conc 29.6 g/dL (32-36); Mean Corpuscular Hgb 27.1 pg (27.0-32.0); Mean Corpuscular Volume 91.6 fL (81-99); Mean Platelet Vol. 10.1 fl (6.2-12.0); Monocyte# 0.82 X10^3/uL; NRBC Flagged by Analyzer 0 % (0-5); Neutrophil # 6.54 X10^3/uL (2.7-7.7); Neutrophil % 63.8 % (47-70); POSITIVE MORPHOLOGY YES; Platelet Count 312 K/mm3 (150-450); RBC Distribution Width CV 19.7 % (11.6-14.6); RBC Distribution Width SD 66.1 fl (35.1-43.9); Red Blood Count 4.06 M/mm3 (4.2-5.4); White Blood Count 10.2 K/mm3 (4.4-11.0)
[2024-01-13 15:51] LABS: ALB/GLOB Ratio 0.7 RATIO (0.9-2.4); AST(SGOT) 24 U/L (15-37); Alanine Aminotransfer ALT/SGPT 23 U/L (13-56); Albumin, Serum 3.1 g/dL (3.2-5.0); Alkaline Phosphatase 139 U/L (45-117); Anion Gap 6 (5-15); BUN 8 mg/dL (7-18); BUN/Creat Ratio 7.3 RATIO (10-20); Calcium,Total 9.2 mg/dL (8.5-10.1); Chloride 110 mmol/L (98-107); EST Glomerular Filtration Rate 55 mL/min (>60); Est Glom Filt Rate - Afr Amer 67 mL/min (>60); Estimated Creatinine Clearance 82.75 ml/min; Globulin 4.2 g/dL (2.2-4.2); Glucose 107 mg/dL (74-106); Potassium 4.9 mmol/L (3.5-5.1); Protein, Total 7.3 g/dL (6.4-8.2); Sodium Level 138 mmol/L (136-145)
[2024-01-13 16:27] LABS: Differential Indicated SCAN CRITERIA MET
[2024-01-13 16:28] LABS: Differential Comment @SLIDE SCANNED
[2024-01-13 16:29] LABS: Anisocytosis 1+; Macrocytosis 1+; Platelet Estimate ADEQUATE (ADEQ); Red Cell Morphology N CHROM NORMAL (NORM C&C)
[2024-01-13 16:53] VITALS: BP 114/78; PULSE 63; RESP 16; TEMP 37.1; O2SAT 98
== END 2024-01-13 16:54 | disposition home or self-care (01) ==
PROVIDERS: Emergency Provider Emergency Medicine; PCP Family Medicine; Visit Provider Emergency Medicine
DX: J06.9 Acute upper respiratory infection, unspecified (principal); J44.9 Chronic obstructive pulmonary disease, unspecified; E11.22 Type 2 diabetes mellitus with diabetic chronic kidney disease; R07.81 Pleurodynia; I12.9 Hypertensive chronic kidney disease with stage 1 through stage 4 chronic kidney disease, or unspecified chronic kidney disease; E78.00 Pure hypercholesterolemia, unspecified; I25.10 Atherosclerotic heart disease of native coronary artery without angina pectoris; N18.9 Chronic kidney disease, unspecified; K21.9 Gastro-esophageal reflux disease without esophagitis; E03.9 Hypothyroidism, unspecified
CPT/HCPCS: 71046; 80053; 85025; 99284; A4216

== ENCOUNTER 2024-01-15 13:27 | Emergency (ER) | payer MEDICARE, MEDICAID, SELFPAY ==
[2024-01-15 13:29] VITALS: BP 150/93; PULSE 83; RESP 18; TEMP 37; O2SAT 97; BMI 51.5
--- NOTE | 2024-01-15 13:45 | EKG12_ITS ---
Test Reason : CP Blood Pressure : */* mmHG Vent. Rate : 78 BPM Atrial Rate : 78 BPM P-R Int : 150 ms QRS Dur : 86 ms QT Int : 410 ms P-R-T Axes : 57 -10 42 degrees QTcB Int : 467 ms Sinus rhythm with Premature atrial complexes Borderline Confirmed by Wes Medeiros ([id number]), makeup editor ZANDER MAYER ([id number]) on 01/23/2024 6:23:29 AM Referred By: MARIJA Confirmed By: Wes Medeiros
--- NOTE | 2024-01-15 13:46 | EDS_ITS ---
HPI HPI - URI History of Present Illness Chief Complaint: Cold Sx Detail of Chief Complaint: URI symptoms for 1 to 2 weeks. Chest pain last night. Informant: patient Onset/Context/Timing Onset: Today and Yesterday Context: Gradual Onset Timing: Continuous Current Severity: Mild Maximum Severity: Mild Associated Symptoms Associated Symptoms: Positive for Nasal Congestion and Nonproductive cough; Negative for Productive Cough Narrative Narrative: 53-year-old female history of diabetes, DVT and PE, COPD and CAD. States that she has had a cough for 1 to 2 weeks. Last night around 6:00 developed chest discomfort. Denies any radiation of chest pain. Midsternal. Denies any dyspnea. She has nonproductive cough. Denies any mops this. No leg pain or swelling. Prior similar symptoms: Yes Recent Illness/Hospitalization: No ROS ROS ED ROS Narrative Nonproductive cough. Chest discomfort. Constitutional Constitutional ED: Denies chills or fever(s) Eyes Eyes: Denies blurry vision ENT ENT ED: Denies ear pain Cardiovascular Cardiovascular: Reports chest pain; Denies palpitations or racing heartbeat Respiratory/Chest Respiratory/Chest: Reports cough; Denies dyspnea or dyspnea on exertion Gastrointestinal Gastrointestinal: Denies abdominal pain, constipation, diarrhea, melena, nausea or vomiting Genitourinary Genitourinary ED: Denies dysuria or hematuria Musculoskeletal Musculoskeletal: Denies arthralgias or back pain Integumentary Denies abscess or Abrasions Neurologic Neurologic: Denies headache(s) Psychiatric Psychiatric: Denies anxiety or depression Endocrine Endocrinology: Denies cold intolerance Hematologic/Lymphatic Hematologic/Lymphatic: Denies easy bleeding or lymphadenopathy Allergic/Immunologic Allergic/Immunologic ED: Denies mouth swelling, tongue swelling or urticaria PFSH [facility] Medical History MARYANA (acute kidney injury) Walker as ambulation aid Ambulates with cane Low iron History of renal disease High cholesterol DVT (deep venous thrombosis) PONV (postoperative nausea and vomiting) Stroke/cerebrovascular accident Sleep apnea [facility] follow-up encounter Scalp hematoma Pulmonary embolism Post-menopausal Thyroid disease Injury of head and neck Dietary restriction Difficulty swallowing BiPAP (biphasic positive airway pressure) dependence COPD (chronic obstructive pulmonary disease) Shortness of breath on exertion Leg cramps History of pain when walking History of edema History of echocardiogram History of stress test Syncope Abnormal glucose Noncompliance DAVY treated with BiPAP UTI (urinary tract infection) Vitamin D deficiency Restless leg syndrome Vitamin B12 deficiency Iron deficiency anemia History of chronic back pain Wears glasses Arthritis Non-smoker Hydronephrosis Depression Anemia Migraine headache Chronic kidney disease Diabetes mellitus Gout Celiac disease Hyperlipidemia GERD (gastroesophageal reflux disease) Dyspnea on exertion Chest pain Hypersomnia Cardiac murmur Microcytic anemia Hypertension Morbid obesity with BMI of 40.0-44.9, adult Asthma Hypothyroidism Anxiety Home Medications ?Medication ?Instructions ?Recorded ?Last Taken ?Type citalopram 40 mg tablet 40 mg PO DAILY DEPRESSION/ANXIETY 07/27/19 09/30/23 History budesonide-formoterol HFA 160 2 puff inhalation BID COPD 04/02/20 09/30/23 History mcg-4.5 mcg/actuation aerosol inhaler (Symbicort) lorazepam 1 mg tablet 1 mg PO TID PRN ANXIETY 05/04/22 02/08/23 History progesterone micronized 200 mg 400 mg PO QHS HORMONES 10/11/22 09/30/23 History capsule metoclopramide HCl 10 mg tablet 10 mg PO Q6H PRN NAUSEA AND 01/07/23 Unknown Rx (Reglan) VOMTING #20 tabs atorvastatin 80 mg tablet 80 mg PO DAILY CHOLESTEROL 02/10/23 09/30/23 History cyclobenzaprine 5 mg tablet 5 mg PO Q8H MUSCLE SPASMS 02/10/23 09/30/23 History fluticasone fur. 100 mcg-umeclid 1 inh inhalation DAILY COPD 06/20/23 09/30/23 History 62.5 mcg-vilant 25 mcg inhalat.powder (Trelegy Ellipta) albuterol sulfate 90 mcg/actuation 2 puff inhalation Q4H PRN 07/29/23 08/22/23 History aerosol inhaler SHORTNESS OF BREATH/WHEEZING galcanezumab-gnlm 120 mg/mL 120 mg subcut Q30D migraines 07/29/23 Unknown History subcutaneous syringe (Emgality) trazodone 50 mg tablet 50 - 100 mg PO QHS SLEEP 07/29/23 09/30/23 History atenolol 25 mg tablet 25 mg PO DAILY PRN ANXIETY 08/23/23 08/22/23 History diclofenac sodium 3 % topical gel 1 ea topical BID PRN PRN skin 09/30/23 Unknown History irritation gabapentin 300 mg capsule 300 mg PO TID pain 09/30/23 09/30/23 History galcanezumab-gnlm 120 mg/mL 120 mg subcut QMONTH migraine 09/30/23 Unknown History subcutaneous pen injector (Emgality Pen) calcium carbonate 1,000 mg PO Q6H PRN PRN heartburn 10/01/23 Unknown History levothyroxine 100 mcg tablet 200 mcg PO DAILY thyroid 10/01/23 09/30/23 History naratriptan 2.5 mg tablet 2.5 mg PO BID PRN migraines 10/01/23 Unknown History furosemide 40 mg tablet 40 mg PO DAILY #30 tabs 10/18/23 Unknown Rx isosorbide mononitrate 30 mg 30 mg PO DAILY HEART #30 tabs 10/18/23 Unknown Rx tablet,extended release 24 hr potassium chloride 10 mEq 10 meq PO DAILY SUPPLEMENT #30 10/18/23 Unknown Rx capsule,extended release caps valsartan 320 mg tablet 160 mg (1/2 x 320 mg) PO BID BLOOD 10/18/23 Unknown Rx PRESSURE #30 tabs ezetimibe 10 mg tablet (Zetia) 10 mg PO QDAY #30 tabs 11/28/23 Unknown Rx meclizine 25 mg tablet 25 mg PO 4X/DAY PRN PRN Dizziness 11/30/23 Unknown Rx #20 tabs ondansetron 4 mg disintegrating 4 mg PO Q8H PRN PRN Nausea #10 tabs 11/30/23 Unknown Rx tablet ondansetron 4 mg disintegrating 4 mg PO Q8H PRN PRN Nausea #10 tabs 01/06/24 Unknown Rx tablet Allergy/AdvReac Type Severity Reaction Status Date / Time hydrochlorothiazide AdvReac Intermediate Contributes Verified 01/15/24 13:29 to gout naproxen (From Naprosyn) AdvReac Intermediate Nausea Verified 01/15/24 13:29 aspirin AdvReac Nausea Verified 01/15/24 13:29 Family History Father , Age 72 Hypertension Mother CAD (coronary artery disease) Myocardial infarction, Onset Age: 55 Hypertension Sister CAD (coronary artery disease) Brother Cancer Surgical History History of cardiac catheterization History of History of carpal tunnel surgery of right wrist History of carpal tunnel surgery of left wrist Hx of cystoscopy History of left heart catheterization (11/11/20) history of uterine ablation Social History household members: none housing: apartment Smoking Status: Never smoker alcohol intake: never substance use type: does not use caffeine: No EXAM Physical Exam Narrative Exam Narrative: 53-year-old female no acute distress vital signs stable afebrile. Does not look septic or toxic. H EENT exam unremarkable. Neck nontender. Lungs clear to auscultation bilaterally. Heart regular rate and rhythm rate about 80 no murmur. Chest wall and ribs nontender. Abdomen soft nontender. No peritoneal signs. Back no reproducible pain. No rashes. Moving all 4 extremities. Calves are nontender without edema or cords. 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 Dorsi m otor function intact. She is awake alert. Answering questions following commands. Benign exam. Pulse ox 97% on room air no hypoxia. Const Vital Signs: 01/15/24 13:29 01/15/24 13:58 01/15/24 13:58 Temperature 98.6 F Temperature Source Oral Pulse Rate 83 Respiratory Rate 18 Respiratory Effort Normal Normal Respiratory Depth Normal Respiratory Pattern Normal Normal Blood Pressure 150/93 H Blood Pressure Mean 112 Pulse Ox 97 Oxygen Delivery Method Room Air Room Air 01/15/24 13:59 01/15/24 14:35 Temperature Temperature Source Pulse Rate 68 Respiratory Rate Respiratory Effort Respiratory Depth Respiratory Pattern Blood Pressure 142/87 H Blood Pressure Mean 105 Pulse Ox 95 Oxygen Delivery Method Room Air Positive well nourished and well developed; Negative for cachectic or contractures General Appearance ED: well developed and NAD; Negative for cachectic, contractures, cyanotic, diaphoretic or pallor Nutritional Appearance: Negative for cachectic HEENT Reports moist mucous membranes normocephalic and atraumatic; Negative for scalp tenderness Throat: posterior oropharynx normal Eyes PERRL and EOMs intact bilaterally General Eye ED: Negative for pale conjunctiva or scleral icterus Neck no lymphadenopathy, supple, no meningeal signs and no JVD General: Negative for anterior neck swelling Resp normal respiratory effort and clear to auscultation bilaterally Effort and Inspection: Negative for retractions Auscultation: Negative for rales, rhonchi, wheezes or diminished lung sounds Cardio S1 normal heart sound, S2 normal heart sound and no murmurs Rate: regular rate; Negative for bradycardia or tachycardic Rhythm: regular rhythm; Negative for abnormal rhythm GI non-tender, non-distended and no masses Inspection: Negative for abdominal distention Auscultation: normoactive bowel sounds Palpation: soft; Negative for tender or guarding Back/Spine no CVA tenderness and normal ROM General Back: Negative for CVA tenderness Cervical Spine: Negative for cervical spine tenderness Thoracic Spine / Upper Back: Negative for thoracic spinal tenderness Lumbar Spine / Lower Back: Negative for lumbar spinal tenderness Neuro oriented x3 and CN's II-XII intact bilaterally Sensorium / Orientation: alert, oriented to person, oriented to place and oriented to time; Negative for orientation impaired, lethargic or stuporous Motor Exam: strength 5/5 throughout Psych mental status grossly normal Appearance: Negative for other Attitude: No agitated Mood & Affect: Negative for depressed or tearful Skin General Skin Exam: Negative for jaundice or pallor Lesions: no lesions Rashes: no rashes MDM MDM MDM Narrative Medical decision making narrative: URI symptoms for at least a week with atypical nonreproducible nonexertional chest pain began last night around 7 PM. Exam benign. Cardiac workup and chest x-ray. History & Record Review Discussion w/independent historian: Patient Additional record(s) reviewed:: Prior inpatient record, Prior outpatient record, Prior ED visit and Prior labs Lab Data Attestation: I reviewed the patient's lab results. Lab results narrative: CBC shows a white count of 10.7. H&H 10.8 and 35 which is her baseline chronic anemia. Platelets 356. Electrolytes show potassium 5.3. 4. BUN of 10 creatinine 1.2. Glucose 120. Troponin 5. Labs: Laboratory Results - last 24 hr 01/15/24 14:10 WBC 10.7 RBC 3.94 L Hgb 10.8 L Hct 35.0 L MCV 88.8 MCH 27.4 MCHC 30.9 L RDW Std Deviation 62.6 H RDW Coeff of Alfredo 19.5 H Plt Count 356 MPV 10.4 Immature Gran % (Auto) 0.300 Neut % (Auto) 68.7 Lymph % (Auto) 19.1 Moca % (Auto) 6.5 Eos % (Auto) 4.7 Baso % (Auto) 0.7 Absolute Neuts (auto) 7.4 Absolute Lymphs (auto) 2.04 Nucleated RBC % 0 Sodium 139 Potassium 5.3 H Chloride 104 Carbon Dioxide 31.0 Anion Gap 4 L BUN 10 Creatinine 1.22 H Estim Creat Clear Calc 73.45 Est GFR (MDRD) Af Amer 59 L Est GFR (MDRD) Non-Af 49 L BUN/Creatinine Ratio 8.2 L Glucose 120 H Calcium 9.2 Troponin I High Sens 5 Radiography Chest X-Ray - ED: 2 View, Read by ED Physician, Read by Radiologist, Lungs, Mediastinum, Bony Structures, No Acute Disease, Chronic Changes and Cardiomegaly Diagnostic Testing: Clinical Impression(s) from Imaging Studies Chest X-Ray 01/15/24 13:50 IMPRESSION: Enlarged heart. Electronically Signed: Maury Srivastava MD at 14:37 EST Reading Location ID and State: [facility] / [place] , Service support , Chest x-ray, 2 views, AP and lateral, interpreted by myself and radiology shows borderline cardiomegaly. No other acute process. Normal lung lee. No pneumonia. Rhythm Strip Rhythm Strip: Sinus Rhythm Rate: 74 Ectopy: None EKG Initial EKG: Attestation: I personally reviewed and interpreted this EKG as follows: Interpretation: Sinus Rhythm and No Acute Injury Pattern Comments: Normal sinus rhythm rate of 74 no acute signs of [place] nor ischemia nor significant dysrhythmia. Discharge Plan Triage Chief Complaint: Cold Sx ED Provider: Pipo Merritt Dx/Rx/DC Orders Prescriptions: No Action budesonide-formoterol [Symbicort] 160-4.5 mcg/actuation HFA aerosol inhaler 2 puff INHALATION BID ezetimibe [Zetia] 10 mg tablet 10 mg PO QDAY Qty: 30 11RF Trelegy Ellipta 100-62.5-25 mcg blister with device 1 inh INHALATION DAILY lorazepam 1 mg tablet 1 mg PO TID PRN (Reason: ANXIETY ) progesterone micronized 200 mg capsule 400 mg PO QHS cyclobenzaprine 5 mg tablet 5 mg PO Q8H atorvastatin 80 mg Tablet 80 mg PO DAILY metoclopramide HCl [Reglan] 10 mg tablet 10 mg PO Q6H PRN (Reason: NAUSEA AND VOMTING ) Qty: 20 0RF meclizine 25 mg tablet 25 mg PO 4X/DAY PRN PRN (Reason: Dizziness) Qty: 20 0RF ondansetron 4 mg tablet,disintegrating 4 mg PO Q8H PRN PRN (Reason: Nausea) Qty: 10 0RF albuterol sulfate 90 mcg/actuation HFA aerosol inhaler 2 puff inhalation Q4H PRN (Reason: SHORTNESS OF BREATH/WHEEZING ) Emgality Syringe 120 mg/mL syringe 120 mg subcut Q30D trazodone 50 mg tablet 50 - 100 mg PO QHS atenolol 25 mg tablet 25 mg PO DAILY PRN (Reason: ANXIETY ) diclofenac sodium 3 % gel 1 ea topical BID PRN PRN (Reason: skin irritation) gabapentin 300 mg capsule 300 mg PO TID Emgality Pen 120 mg/mL pen injector 120 mg subcut QMONTH levothyroxine 100 mcg tablet 200 mcg PO DAILY naratriptan 2.5 mg tablet 2.5 mg PO BID PRN (Reason: migraines) Rx Instructions: can repeat dose, two hours after first dose taken. do not exceed more than two doses in 24 hours. calcium carbonate 500 mg calcium (1,250 mg) tablet,chewable 1,000 mg PO Q6H PRN PRN (Reason: heartburn) ondansetron 4 mg tablet,disintegrating 4 mg PO Q8H PRN PRN (Reason: Nausea) Qty: 10 0RF citalopram 40 mg tablet 40 mg PO DAILY furosemide 40 mg tablet 40 mg PO DAILY Qty: 30 11RF potassium chloride 10 mEq capsule, extended release 10 meq PO DAILY Qty: 30 11RF isosorbide mononitrate 30 mg tablet extended release 24 hr 30 mg PO DAILY Qty: 30 11RF valsartan 320 mg tablet 160 mg PO BID Qty: 30 11RF Primary Care Provider: Nasreen Sutton Referrals: Nasreen Sutton MD [Primary Care Provider] - Print Language: Slovenian
--- NOTE | 2024-01-15 13:50 | RAD_ITS ---
EXAM: XR CHEST, 2 VIEWS CLINICAL INDICATION: cough and CP TECHNIQUE: Frontal and lateral views of the chest. COMPARISON: 01.13.24 FINDINGS: LUNGS AND PLEURAL SPACES: Unremarkable. No consolidation or edema. No pneumothorax. No effusion. HEART: Enlarged heart. MEDIASTINUM: Central airways and mediastinal contour are unremarkable. BONES/JOINTS: Unremarkable. No acute fracture. SOFT TISSUES: Unremarkable. RAD/Chest PA and Lateral IMPRESSION: Enlarged heart. Electronically Signed: Maury Srivastava MD at 14:37 EST ,
[2024-01-15 13:58] VITALS: O2SAT 95
[2024-01-15 13:59] VITALS: O2SAT 95
[2024-01-15 14:15] LABS: Absolute Lymphocyte Count 2.04 X10^3/uL (0.83-4.51); Absolute Neutrophil Count 7.4 X10^3/uL (2.0-7.7); Basophil# 0.08 X10^3/uL; Basophil% 0.7 % (0-1); Eosinophils% 4.7 % (0-5); Hemoglobin 10.8 g/dL (12.0-15.0); Lymphocyte # 2.04 X10^3/ul (0.83-4.51); Lymphocyte % 19.1 % (19-41); Mean Corp Hgb Conc 30.9 g/dL (32-36); Mean Corpuscular Hgb 27.4 pg (27.0-32.0); Mean Corpuscular Volume 88.8 fL (81-99); Mean Platelet Vol. 10.4 fl (6.2-12.0); Monocyte% 6.5 % (0-10); NRBC Flagged by Analyzer 0 % (0-5); Neutrophil # 7.35 X10^3/uL (2.7-7.7); Neutrophil % 68.7 % (47-70); Platelet Count 356 K/mm3 (150-450); RBC Distribution Width CV 19.5 % (11.6-14.6); RBC Distribution Width SD 62.6 fl (35.1-43.9); Red Blood Count 3.94 M/mm3 (4.2-5.4); White Blood Count 10.7 K/mm3 (4.4-11.0)
[2024-01-15 14:35] VITALS: BP 142/87; PULSE 68
[2024-01-15 14:39] LABS: Anion Gap 4 (5-15); BUN 10 mg/dL (7-18); BUN/Creat Ratio 8.2 RATIO (10-20); Calcium,Total 9.2 mg/dL (8.5-10.1); Chloride 104 mmol/L (98-107); Creatinine, Serum 1.22 mg/dL (0.55-1.02); EST Glomerular Filtration Rate 49 mL/min (>60); Est Glom Filt Rate - Afr Amer 59 mL/min (>60); Estimated Creatinine Clearance 73.45 ml/min; Glucose 120 mg/dL (74-106); Potassium 5.3 mmol/L (3.5-5.1); Sodium Level 139 mmol/L (136-145); Troponin-I HS 5 pg/mL (3.0-54.0)
[2024-01-15] MEDS: Ondansetron ODT 4 MG Tablet PO (14:59)
== END 2024-01-15 15:00 | disposition home or self-care (01) ==
PROVIDERS: Emergency Provider Emergency Medicine; PCP Family Medicine; Visit Provider Emergency Medicine
DX: R07.89 Other chest pain (principal); J44.9 Chronic obstructive pulmonary disease, unspecified; E11.22 Type 2 diabetes mellitus with diabetic chronic kidney disease; R09.81 Nasal congestion; R05.9 Cough, unspecified; I25.10 Atherosclerotic heart disease of native coronary artery without angina pectoris; I12.9 Hypertensive chronic kidney disease with stage 1 through stage 4 chronic kidney disease, or unspecified chronic kidney disease; N18.9 Chronic kidney disease, unspecified; D63.1 Anemia in chronic kidney disease; E78.00 Pure hypercholesterolemia, unspecified; Z79.51 Long term (current) use of inhaled steroids; Z79.899 Other long term (current) drug therapy
CPT/HCPCS: 71046; 80048; 84484; 85025; 93005; 99284; A4216

== ENCOUNTER 2024-01-20 15:46 | Inpatient (IN) | payer MEDICARE, MEDICAID, SELFPAY ==
[2024-01-20 15:47] VITALS: BP 148/92; PULSE 89; RESP 18; TEMP 35.8; O2SAT 94; BMI 52.4
--- NOTE | 2024-01-20 18:09 | EKG12_ITS ---
Test Reason : CP Blood Pressure : */* mmHG Vent. Rate : 76 BPM Atrial Rate : 76 BPM P-R Int : 142 ms QRS Dur : 84 ms QT Int : 410 ms P-R-T Axes : 42 -2 -35 degrees QTcB Int : 461 ms Normal sinus rhythm with sinus arrhythmia Prolonged QT Abnormal ECG Confirmed by MIGUEL GONZALEZ, MAGALI ([id number]), editor trade journal ZANDER MAYER ([id number]) on 04/07/2024 7:27:44 AM Referred By: Candy Arreguin Confirmed By: MAGALI RIVERA MD
[2024-01-20 18:35] VITALS: PULSE 86; RESP 22
[2024-01-20] MEDS: Ipratropium/Albuterol Sulfate 3 ML AMPUL.NEB INHALATION (18:35)
--- NOTE | 2024-01-20 18:46 | EDS_ITS ---
HPI History of Present Illness Chief Complaint: Eye Problem Informant: patient Narrative Narrative: Patient is a 53-year-old female with history of chronic chest pain, COPD, obstructive sleep apnea (states she is wears BiPAP at night), hypothyroidism, CKD, diastolic dysfunction and diabetes mellitus presenting with 4 days of right eye drainage and irritation, nausea, chest tightness, cough and mucus production. She denies any sick contacts. She and she is also feeling dizzy. She has had associated sore throat. She tried to call her PCP but states she could not get in. She has been feeling more short of breath. She denies any swelling of her legs. No fevers reported. No other complaints or concerns reported at this time. Patient states that she is concerned by going home because she was home alone and is feeling so poorly. [facility] Medical History MARYANA (acute kidney injury) Walker as ambulation aid Ambulates with cane Low iron History of renal disease High cholesterol DVT (deep venous thrombosis) PONV (postoperative nausea and vomiting) Stroke/cerebrovascular accident Sleep apnea [facility] follow-up encounter Scalp hematoma Pulmonary embolism Post-menopausal Thyroid disease Injury of head and neck Dietary restriction Difficulty swallowing BiPAP (biphasic positive airway pressure) dependence COPD (chronic obstructive pulmonary disease) Shortness of breath on exertion Leg cramps History of pain when walking History of edema History of echocardiogram History of stress test Syncope Abnormal glucose Noncompliance DAVY treated with BiPAP UTI (urinary tract infection) Vitamin D deficiency Restless leg syndrome Vitamin B12 deficiency Iron deficiency anemia History of chronic back pain Wears glasses Arthritis Non-smoker Hydronephrosis Depression Anemia Migraine headache Chronic kidney disease Diabetes mellitus Gout Celiac disease Hyperlipidemia GERD (gastroesophageal reflux disease) Dyspnea on exertion Chest pain Hypersomnia Cardiac murmur Microcytic anemia Hypertension Morbid obesity with BMI of 40.0-44.9, adult Asthma Hypothyroidism Anxiety Home Medications ?Medication ?Instructions ?Recorded ?Last Taken ?Type citalopram 40 mg tablet 40 mg PO DAILY DEPRESSION/ANXIETY 07/27/19 09/30/23 History budesonide-formoterol HFA 160 2 puff inhalation BID COPD 04/02/20 09/30/23 History mcg-4.5 mcg/actuation aerosol inhaler (Symbicort) metoclopramide HCl 10 mg tablet 10 mg PO Q6H PRN NAUSEA AND 01/07/23 Unknown Rx (Reglan) VOMTING #20 tabs atorvastatin 80 mg tablet 80 mg PO DAILY CHOLESTEROL 02/10/23 09/30/23 History cyclobenzaprine 5 mg tablet 5 mg PO Q8H MUSCLE SPASMS 02/10/23 09/30/23 History galcanezumab-gnlm 120 mg/mL 120 mg subcut Q30D migraines 07/29/23 Unknown History subcutaneous syringe (Emgality) trazodone 50 mg tablet 50 - 100 mg PO QHS SLEEP 07/29/23 09/30/23 History gabapentin 300 mg capsule 300 mg PO TID pain 09/30/23 09/30/23 History naratriptan 2.5 mg tablet 2.5 mg PO BID PRN migraines 10/01/23 Unknown History furosemide 40 mg tablet 40 mg PO DAILY #30 tabs 10/18/23 Unknown Rx isosorbide mononitrate 30 mg 30 mg PO DAILY HEART #30 tabs 10/18/23 Unknown Rx tablet,extended release 24 hr potassium chloride 10 mEq 10 meq PO DAILY SUPPLEMENT #30 10/18/23 Unknown Rx capsule,extended release caps ezetimibe 10 mg tablet (Zetia) 10 mg PO QDAY #30 tabs 11/28/23 Unknown Rx fluticasone propionate 50 2 spray intranasal Q12H 01/20/24 Unknown History mcg/actuation nasal spray,suspension levothyroxine 200 mcg tablet 200 mcg PO DAILY 01/20/24 Unknown History tramadol 50 mg tablet 50 mg PO TID 01/20/24 Unknown History valsartan 160 mg tablet 160 mg PO BID 01/20/24 Unknown History Allergy/AdvReac Type Severity Reaction Status Date / Time hydrochlorothiazide AdvReac Intermediate Contributes Verified 01/20/24 15:47 to gout naproxen (From Naprosyn) AdvReac Intermediate Nausea Verified 01/20/24 15:47 aspirin AdvReac Nausea Verified 01/20/24 15:47 Family History Father , Age 72 Hypertension Mother CAD (coronary artery disease) Myocardial infarction, Onset Age: 55 Hypertension Sister CAD (coronary artery disease) Brother Cancer Surgical History History of cardiac catheterization History of History of carpal tunnel surgery of right wrist History of carpal tunnel surgery of left wrist Hx of cystoscopy History of left heart catheterization (11/11/20) history of uterine ablation Social History household members: none housing: apartment Smoking Status: Never smoker alcohol intake: never substance use type: does not use caffeine: No ROS ROS ED Constitutional Constitutional ED: Reports other Details: Lightheaded ; Denies chills or fever(s) Eyes Eyes: Reports other Details: Right eye irritation, redness and drainage ENT ENT ED: Reports sore throat; Denies ear pain Cardiovascular Cardiovascular: Reports chest pain Respiratory/Chest Respiratory/Chest: Reports cough, dyspnea and sputum Gastrointestinal Gastrointestinal: Reports nausea; Denies abdominal pain, diarrhea or vomiting Musculoskeletal Musculoskeletal: Denies arthralgias or myalgias Integumentary Denies rash Neurologic Neurologic: Reports headache(s) and weakness Psychiatric Psychiatric: Reports anxiety Hematologic/Lymphatic Hematologic/Lymphatic: Denies easy bleeding or easy bruising EXAM Physical Exam Const Vital Signs: 01/20/24 15:47 01/20/24 16:56 Temperature 96.5 F L Temperature Source Temporal Pulse Rate 89 Respiratory Rate 18 Respiratory Effort Short of Breath Blood Pressure 148/92 H Blood Pressure Mean 110 Pulse Ox 94 Oxygen Delivery Method Room Air Positive well nourished, well developed and obese General Appearance ED: well developed and NAD Nutritional Appearance: obese HEENT Reports TM's clear HEENT Narrative: Dry mucosal membranes atraumatic Nose: external nose normal Tympanic Membrane ED: Yes TM's clear Eyes Eyes Narrative: Mucus drainage noted from the right eye. Conjunctival injection present. Pupils equal round reactive to light, PERRL. No edema or cellulitic changes of the eyelids present. Fluorescein exam performed. Patient has approximately 3 mm linear area of uptake at the 7 o'clock position over the right iris. Negative Honorio sign. This is consistent with a corneal abrasion. Neck supple and no JVD Resp normal respiratory effort and no use of accessory muscles Resp Narrative: Diminished breath sounds at the bases. No wheezing or crackles appreciated. Cardio regular rate and regular rhythm GI non-tender and non-distended Extremity normal to inspection General Extremety ED: Negative for edema General Extremity: Negative for edema Neuro oriented x3 Sensorium / Orientation: alert Motor Exam: general weakness Psych Mood & Affect: anxious Skin no wounds Rashes: no rashes MDM MDM MDM Narrative Medical decision making narrative: Patient is a evaluated for generalized weakness, increased cough as well as right eye redness and discomfort. She denies any trauma to her eye. Differential includes viral syndrome, corneal abrasion, conjunctivitis, pneumonia, urinary tract infection, MARYANA, hypoglycemia, hypoxia. Patient is given erythromycin for her eye. Exam with fluorescein consistent with a corneal abrasion. Suspect this redness is reactive from the abrasion and not infectious at this time. Patient given a DuoNeb as well as Reglan and IV fluids in the ER for her symptoms. Vital signs normal in the emergency room. Chest x-ray viewed by myself as well as radiology does not show any acute process. EKG does not show any acute ischemic changes. Patient does have a leukocytosis of 14.5. There is no shift but this does appear to be acute. Creatinine is at her baseline at 1.15. No significant electrolyte abnormalities. Lipase is normal at 32. Urinalysis is highly consistent with urinary tract infection with positive nitrates, 500 leukocyte esterase 10-25 white blood cells and 2+ bacteria. There are some cast seen. I suspect patient is urinary tract infection this was causing her nausea, dizziness generalized weakness. Prior cultures show the patient has a history of Pseudomonas (diagnosed last month) UTI and patient is placed on Zosyn in the emergency room. Lactate and blood cultures at home. At this time patient only has 1 SIRS criteria (white blood cell count of 14.5) with a source of infection so she does not meet criteria for sepsis. While in the ER patient complained chest pain which she says was a tightness. EKG does not show any acute ischemic changes and high sensitivity troponin is normal at 6. This has been present for couple days I do not think further troponins are indicated at this time. Case discussed with admitting physician, Dr. Becerra. She will be admitted for further treatment and monitoring. Lab Data Attestation: I reviewed the patient's lab results. Lab results narrative: Clinical Impression(s) from Imaging Studies Chest X-Ray 01/20/24 19:13 IMPRESSION: No radiographic evidence of acute cardiopulmonary disease. Electronically Signed: Solomon Corona MD at 19:32 EST , Laboratory Data 01/20/24 01/20/24 18:55 20:17 WBC 14.5 H RBC 3.96 L Hgb 10.9 L Hct 35.6 L MCV 89.9 MCH 27.5 MCHC 30.6 L RDW Std Deviation 63.1 H RDW Coeff of Alfredo 19.4 H Plt Count 355 MPV 10.3 Immature Gran % (Auto) 0.500 Neut % (Auto) 70.5 H Lymph % (Auto) 16.4 L Storey % (Auto) 6.9 Eos % (Auto) 5.1 H Baso % (Auto) 0.6 Absolute Neuts (auto) 10.3 H Absolute Lymphs (auto) 2.39 Nucleated RBC % 0 Sodium 139 Potassium 4.8 Chloride 106 Carbon Dioxide 27.0 Anion Gap 6 BUN 12 Creatinine 1.15 H Estim Creat Clear Calc 78.78 Est GFR (MDRD) Af Amer 63 Est GFR (MDRD) Non-Af 52 L BUN/Creatinine Ratio 10.4 Glucose 108 H Calcium 9.1 Total Bilirubin 0.30 AST 19 ALT 18 Alkaline Phosphatase 154 H Troponin I High Sens 6 Total Protein 7.5 Albumin 3.3 Globulin 4.2 Albumin/Globulin Ratio 0.8 L Lipase 32 Urine Color Yellow Urine Clarity Cloudy Urine pH 6.5 Ur Specific Davis 1.010 Urine Protein 15 H Urine Glucose (UA) Normal Urine Ketones Negative Urine Occult Blood 10 H Urine Nitrite Positive H Urine Bilirubin Negative Urine Urobilinogen Normal Ur Leukocyte Esterase 500 H Urine RBC 0-5 SEEN Urine WBC 10-25 SEEN Ur Squamous Epith Cells 0-5 SEEN Urine Bacteria 2+ WBC Casts 0-5 SEEN Urine Mucus 1+ Rhythm Strip Rhythm Strip: Sinus Rhythm Rate: 78 Ectopy: None EKG Initial EKG: Attestation: I personally reviewed and interpreted this EKG as follows: Interpretation: Sinus Rhythm Comments: Normal sinus rhythm at a rate of 78 bpm with PACs Normal axis Normal intervals Normal ST segments Prior EKG tracings: available for review Management Discussion w/another healthcare provider: Hospitalist Discharge Plan Triage Chief Complaint: Eye Problem ED Provider: Candy Arreguin Dx/Rx/DC Orders Clinical Impression: UTI (urinary tract infection), Abrasion of cornea, right, Nausea, Generalized weakness Prescriptions: No Action budesonide-formoterol [Symbicort] 160-4.5 mcg/actuation HFA aerosol inhaler 2 puff INHALATION BID ezetimibe [Zetia] 10 mg tablet 10 mg PO QDAY Qty: 30 11RF Trelegy Ellipta 100-62.5-25 mcg blister with device 1 inh INHALATION DAILY lorazepam 1 mg tablet 1 mg PO TID PRN (Reason: ANXIETY ) progesterone micronized 200 mg capsule 400 mg PO QHS cyclobenzaprine 5 mg tablet 5 mg PO Q8H atorvastatin 80 mg Tablet 80 mg PO DAILY metoclopramide HCl [Reglan] 10 mg tablet 10 mg PO Q6H PRN (Reason: NAUSEA AND VOMTING ) Qty: 20 0RF meclizine 25 mg tablet 25 mg PO 4X/DAY PRN PRN (Reason: Dizziness) Qty: 20 0RF ondansetron 4 mg tablet,disintegrating 4 mg PO Q8H PRN PRN (Reason: Nausea) Qty: 10 0RF albuterol sulfate 90 mcg/actuation HFA aerosol inhaler 2 puff inhalation Q4H PRN (Reason: SHORTNESS OF BREATH/WHEEZING ) Emgality Syringe 120 mg/mL syringe 120 mg subcut Q30D trazodone 50 mg tablet 50 - 100 mg PO QHS atenolol 25 mg tablet 25 mg PO DAILY PRN (Reason: ANXIETY ) diclofenac sodium 3 % gel 1 ea topical BID PRN PRN (Reason: skin irritation) gabapentin 300 mg capsule 300 mg PO TID Emgality Pen 120 mg/mL pen injector 120 mg subcut QMONTH levothyroxine 100 mcg tablet 200 mcg PO DAILY naratriptan 2.5 mg tablet 2.5 mg PO BID PRN (Reason: migraines) Rx Instructions: can repeat dose, two hours after first dose taken. do not exceed more than two doses in 24 hours. calcium carbonate 500 mg calcium (1,250 mg) tablet,chewable 1,000 mg PO Q6H PRN PRN (Reason: heartburn) ondansetron 4 mg tablet,disintegrating 4 mg PO Q8H PRN PRN (Reason: Nausea) Qty: 10 0RF citalopram 40 mg tablet 40 mg PO DAILY furosemide 40 mg tablet 40 mg PO DAILY Qty: 30 11RF potassium chloride 10 mEq capsule, extended release 10 meq PO DAILY Qty: 30 11RF isosorbide mononitrate 30 mg tablet extended release 24 hr 30 mg PO DAILY Qty: 30 11RF valsartan 320 mg tablet 160 mg PO BID Qty: 30 11RF Primary Care Provider: Nasreen Sutton Referrals: Nasreen Sutton MD [Primary Care Provider] - Print Language: Upper Sorbian Disposition Disposition: Acute Care Hospital [facility]
[2024-01-20] MEDS: Metoclopramide 10 MG/2 ML Vial IV (19:00)
[2024-01-20] MEDS: 0.9% Normal Saline (500mL Bag) 500 ML 1000 ML IV (19:00)
[2024-01-20] MEDS: Fluorescein 1 MG STRIP 1 STRIP OPHTHALMIC (19:00)
[2024-01-20] MEDS: Erythromycin Base 1 OPTH.TUBE 1 APPLIC RIGHT EYE (19:00)
--- NOTE | 2024-01-20 19:13 | RAD_ITS ---
EXAM: XR CHEST, 2 VIEWS CLINICAL INDICATION: sob TECHNIQUE: Frontal and lateral views of the chest. COMPARISON: 01/15/2024 FINDINGS: LUNGS AND PLEURAL SPACES: Unremarkable. No consolidation or edema. No pneumothorax. No effusion. HEART: Unremarkable. Cardiac silhouette not enlarged. MEDIASTINUM: Central airways and mediastinal contour are unremarkable. BONES/JOINTS: Unremarkable. No acute fracture. SOFT TISSUES: Unremarkable. RAD/Chest PA and Lateral IMPRESSION: No radiographic evidence of acute cardiopulmonary disease. Electronically Signed: Solomon Corona MD at 19:32 EST ,
[2024-01-20 19:19] LABS: Absolute Lymphocyte Count 2.39 X10^3/uL (0.83-4.51); Absolute Neutrophil Count 10.3 X10^3/uL (2.0-7.7); Basophil# 0.09 X10^3/uL; Basophil% 0.6 % (0-1); Eosinophil# 0.74 X10^3/uL; Eosinophils% 5.1 % (0-5); Hematocrit 35.6 % (37-47); Hemoglobin 10.9 g/dL (12.0-15.0); Lymphocyte # 2.39 X10^3/ul (0.83-4.51); Lymphocyte % 16.4 % (19-41); Mean Corp Hgb Conc 30.6 g/dL (32-36); Mean Corpuscular Hgb 27.5 pg (27.0-32.0); Mean Corpuscular Volume 89.9 fL (81-99); Mean Platelet Vol. 10.3 fl (6.2-12.0); Monocyte% 6.9 % (0-10); NRBC Flagged by Analyzer 0 % (0-5); Neutrophil # 10.25 X10^3/uL (2.7-7.7); Neutrophil % 70.5 % (47-70); Platelet Count 355 K/mm3 (150-450); RBC Distribution Width CV 19.4 % (11.6-14.6); RBC Distribution Width SD 63.1 fl (35.1-43.9); Red Blood Count 3.96 M/mm3 (4.2-5.4); White Blood Count 14.5 K/mm3 (4.4-11.0)
[2024-01-20 19:37] LABS: ALB/GLOB Ratio 0.8 RATIO (0.9-2.4); AST(SGOT) 19 U/L (15-37); Alanine Aminotransfer ALT/SGPT 18 U/L (13-56); Albumin, Serum 3.3 g/dL (3.2-5.0); Alkaline Phosphatase 154 U/L (45-117); Anion Gap 6 (5-15); BUN 12 mg/dL (7-18); BUN/Creat Ratio 10.4 RATIO (10-20); Calcium,Total 9.1 mg/dL (8.5-10.1); Chloride 106 mmol/L (98-107); Creatinine, Serum 1.15 mg/dL (0.55-1.02); EST Glomerular Filtration Rate 52 mL/min (>60); Est Glom Filt Rate - Afr Amer 63 mL/min (>60); Estimated Creatinine Clearance 78.78 ml/min; Globulin 4.2 g/dL (2.2-4.2); Glucose 108 mg/dL (74-106); Lipase 32 U/L (13-75); Potassium 4.8 mmol/L (3.5-5.1); Protein, Total 7.5 g/dL (6.4-8.2); Sodium Level 139 mmol/L (136-145); Troponin-I HS 6 pg/mL (3.0-54.0)
[2024-01-20 20:18] VITALS: PULSE 88; RESP 18; O2SAT 94
[2024-01-20 20:26] LABS: Color, Urine Yellow (Yellow); Glucose, Dipstick Normal (Normal); Ketone-Dipstick Negative (Negative); Leukocyte Esterase-Dipstick 500 /ul (Negative); Nitrite-Dipstick Positive (Negative); Occult Blood-Urine 10 /ul (Negative); Protein-Dipstick 15 mg/dl (Negative); Urine Bilirubin Dipstick Negative (Negative); Urine Clarity Cloudy (Clear); Urine Urobilinogen Normal (Normal); Urine pH 6.5 (5.0 - 8.0)
[2024-01-20 20:33] LABS: Bacteria 2+ /hpf (None Seen); Mucous, Urine 1+ /hpf (<or=2+); Red Blood Cells-Urine 0-5 SEEN /hpf (0-5); Squamous Epithelial Cells - UA 0-5 SEEN /hpf (5-10); White Blood Cells 10-25 SEEN /hpf (0-5); White Cell Cast 0-5 SEEN /lpf (None Seen)
--- NOTE | 2024-01-20 21:46 | PCM.HP.STD ---
[facility] - General General Date of Admission: 01/20/24 Date of Service: 01/20/24 Chief Complaint: Right Eye Redness and Feeling Poorly Overall. HPI Narrative COURTNEY GRAY, is a 53 F with a past medical history of essential hypertension; on atenolol, valsartan and furosemide, hyperlipidemia; on ezetimbe, hypothyroidism, morbid obesity; with BMI of 52.4 this admission, DAVY; on BiPAP, DM-2; of unknown control, peripheral neuropathy; on gabapentin, CAD; with history of LHC (2020); on ISMO, history of syncope, history of diastolic dysfunction, history of atypical chest pain, history of DVT/PE; not currently on anticoagulation, history of CVA, history of CKD; stage IV that has subsequently improved, history of cystoscopy; s/p stents (2021 & 2022), history of microcytic / iron deficiency anemia, history of tobacco abuse; with subsequent COPD with 'blue bloater' phenotype, history of celiac disease, history of B12 deficiency, RLS, depression with anxiety; on citalopram, trazodone and prn lorazepam, history of migraine headaches; on monthly sq emgality and prn naratriptan, chronic vertigo; on prn meclizine, history of muscle spasms; on prn cyclobenzaprine, GERD, gout, OA; with chronic back pain and poor mobility with patient typically ambulating with cane or walker on diclofenac gel and history of UTI who presents to [facility] ER complaining of Right eye redness and feeling poorly overall. Ms. Gray reports her symptoms began approximately 4 days prior to admission with a gradual-onset of progressively worsening redness and pain of the Right eye. She states she tried to contact her PCP but was unable to get an immediate appointment so she decided to come in for further evaluation and treatment. She also admits to sore throat and feeling dizzy with nausea, malaise and progressively feeling more short of breath. She denies associated fever, chills, vomiting, abdominal pain, chest pain or headache but she does admit to chest tightness and cough with nonbloody mucus production in addition to tinea under her breasts. In the ER she was noted to have a urinalysis positive for evidence of acute cystitis; without hematuria with a corresponding Leukocytosis of 14.5 K present on admission complicated by highly elevated TSH of 60 present on admission suspected to be due to poor absorption of her relatively high-dose Levothyroxine in addition to corneal abrasion of the Right eye and she was then admitted to the general medical floor for ongoing care for stay that is expected to extend beyond 2 midnights. FOR[facility]LY [facility], LATER [facility] Medical History (Updated 01/21/24 @ 00:[address] Renzo Oreilly, DO) MARYANA (acute kidney injury) Walker as ambulation aid Ambulates with cane Low iron History of renal disease High cholesterol DVT (deep venous thrombosis) PONV (postoperative nausea and vomiting) Stroke/cerebrovascular accident Sleep apnea Fall [facility]iology follow-up encounter Scalp hematoma Pulmonary embolism Post-menopausal Thyroid disease Injury of head and neck Dietary restriction Difficulty swallowing BiPAP (biphasic positive airway pressure) dependence COPD (chronic obstructive pulmonary disease) Shortness of breath on exertion Leg cramps History of pain when walking History of edema History of echocardiogram History of stress test Syncope Abnormal glucose Noncompliance DAVY treated with BiPAP UTI (urinary tract infection) Vitamin D deficiency Restless leg syndrome Vitamin B12 deficiency Iron deficiency anemia History of chronic back pain Wears glasses Arthritis Non-smoker Hydronephrosis Depression Anemia Migraine headache Chronic kidney disease Diabetes mellitus Gout Celiac disease Hyperlipidemia GERD (gastroesophageal reflux disease) Dyspnea on exertion Chest pain Hypersomnia Cardiac murmur Microcytic anemia Hypertension Morbid obesity with BMI of 40.0-44.9, adult Asthma Hypothyroidism Anxiety Home Medications ?Medication ?Instructions ?Recorded ?Last Taken ?Type citalopram 40 mg tablet 40 mg PO DAILY DEPRESSION/ANXIETY 07/27/19 09/30/23 History budesonide-formoterol HFA 160 2 puff inhalation BID COPD 04/02/20 09/30/23 History mcg-4.5 mcg/actuation aerosol inhaler (Symbicort) metoclopramide HCl 10 mg tablet 10 mg PO Q6H PRN NAUSEA AND 01/07/23 Unknown Rx (Reglan) VOMTING #20 tabs atorvastatin 80 mg tablet 80 mg PO DAILY CHOLESTEROL 02/10/23 09/30/23 History cyclobenzaprine 5 mg tablet 5 mg PO Q8H MUSCLE SPASMS 02/10/23 09/30/23 History galcanezumab-gnlm 120 mg/mL 120 mg subcut Q30D migraines 07/29/23 Unknown History subcutaneous syringe (Emgality) trazodone 50 mg tablet 50 - 100 mg PO QHS SLEEP 07/29/23 09/30/23 History gabapentin 300 mg capsule 300 mg PO TID pain 09/30/23 09/30/23 History naratriptan 2.5 mg tablet 2.5 mg PO BID PRN migraines 10/01/23 Unknown History furosemide 40 mg tablet 40 mg PO DAILY #30 tabs 10/18/23 Unknown Rx isosorbide mononitrate 30 mg 30 mg PO DAILY HEART #30 tabs 10/18/23 Unknown Rx tablet,extended release 24 hr potassium chloride 10 mEq 10 meq PO DAILY SUPPLEMENT #30 10/18/23 Unknown Rx capsule,extended release caps ezetimibe 10 mg tablet (Zetia) 10 mg PO QDAY #30 tabs 11/28/23 Unknown Rx fluticasone propionate 50 2 spray intranasal Q12H 01/20/24 Unknown History mcg/actuation nasal spray,suspension levothyroxine 200 mcg tablet 200 mcg PO DAILY 01/20/24 Unknown History tramadol 50 mg tablet 50 mg PO TID 01/20/24 Unknown History valsartan 160 mg tablet 160 mg PO BID 01/20/24 Unknown History Allergy/AdvReac Type Severity Reaction Status Date / Time hydrochlorothiazide AdvReac Intermediate Contributes Verified 01/20/24 15:47 to gout naproxen (From Naprosyn) AdvReac Intermediate Nausea Verified 01/20/24 15:47 aspirin AdvReac Nausea Verified 01/20/24 15:47 Family History Father , Age 72 Hypertension Mother CAD (coronary artery disease) Myocardial infarction, Onset Age: 55 Hypertension Sister CAD (coronary artery disease) Brother Cancer Surgical History History of cardiac catheterization History of History of carpal tunnel surgery of right wrist History of carpal tunnel surgery of left wrist Hx of cystoscopy History of left heart catheterization (11/11/20) history of uterine ablation Social History household members: none housing: apartment Smoking Status: Never smoker alcohol intake: never substance use type: does not use caffeine: No ROS ROS Narrative Review of Systems: Constitutional: Patient admits to lightheadedness but she denies fever or chills. Eyes: Patient admits to redness and painful irritation of the Right eye. ENT: Patient admits to sore throat but she denies runny nose or ear pain. Resp: Patient admits to SOB and cough with sputum as per HPI. CV: Patient admits to chest pain that is generalized and nonspecific. GI: Patient admits to nausea but she denies vomiting, abdominal pain, diarrhea or constipation. : Patient admits to dysuria and frequency but she denies hematuria. MSK: Patient denies arthralgias or myalgias. Skin: Patient admits to rash under her breasts. Psych: Patient admits to anxiety but she denies depression, SI or HI. Neuro: Patient admits to migraine-type headache but she denies paresthesias or focal neurologic deficits. Allergy: Patient denies lip swelling, tongue swelling or urticaria. Hematology: Patient denies easy bleeding or easy bruisability. Endocrinology: Patient denies polyuria, polydipsia or polyphagia. 14 point ROS otherwise negative except for positives noted above. Vital Signs Vital Signs Vital Signs: 01/20/24 15:47 01/20/24 16:56 01/20/24 18:35 Temperature 96.5 F L Temperature Source Temporal Pulse Rate 89 86 Respiratory Rate 18 22 H Respiratory Effort Short of Breath Respiratory Pattern Tachypnea Blood Pressure 148/92 H Blood Pressure Mean 110 Pulse Ox 94 Oxygen Delivery Method Room Air 01/20/24 20:18 Temperature Temperature Source Pulse Rate 88 Respiratory Rate 18 Respiratory Effort Respiratory Pattern Blood Pressure Blood Pressure Mean Pulse Ox 94 Oxygen Delivery Method Room Air Weight Weight: 305 lb 4.8 oz Body Mass Index (BMI) 52.4 Physical Exam Const alert and oriented x3 Constitutional Narrative: Mild discomfort noted with morbid obesity. General Appearance: cooperative HEENT normocephalic, head/scalp atraumatic, hearing grossly normal bilaterally and moist oral mucous membranes Eyes PERRL and EOMs intact bilaterally Neck no lymphadenopathy and supple Resp normal respiratory effort, no retractions, no use of accessory muscles and clear to auscultation bilaterally Cardio regular rate and regular rhythm GI normal to inspection, nondistended, normoactive bowel sounds, soft to palpation, non-tender and non-distended GI Narrative: Morbidly obese. Extremity normal to inspection, full ROM and no clubbing, cyanosis or edema Skin Skin Narrative: Patient has a maculopapular rash under both breasts. Neuro oriented x3, CN's II-XII intact bilaterally, moves all extremities and no focal motor deficits Sensorium / Orientation: awake, alert, oriented to person, oriented to place and oriented to time Speech: speech normal Psych Mood & Affect: anxious Results Medical Records Data Attestation: I reviewed the patient's medical records Lab / Micro Data Attestation: I reviewed the patient's lab results. 01/20/24 18:55 01/20/24 18:55 Labs: Laboratory Results - last 24 hr 01/20/24 18:55: WBC 14.5 H, RBC 3.96 L, Hgb 10.9 L, Hct 35.6 L, MCV 89.9, MCH 27.5, MCHC 30.6 L, RDW Std Deviation 63.1 H, RDW Coeff of Alfredo 19.4 H, Plt Count 355, MPV 10.3, Immature Gran % (Auto) 0.500, Neut % (Auto) 70.5 H, Lymph % (Auto) 16.4 L, [place] % (Auto) 6.9, Eos % (Auto) 5.1 H, Baso % (Auto) 0.6, Absolute Neuts (auto) 10.3 H, Absolute Lymphs (auto) 2.39, Nucleated RBC % 0, Sodium 139, Potassium 4.8, Chloride 106, Carbon Dioxide 27.0, Anion Gap 6, BUN 12, Creatinine 1.15 H, Estim Creat Clear Calc 78.78, Est GFR (MDRD) Af Amer 63, Est GFR (MDRD) Non-Af 52 L, BUN/Creatinine Ratio 10.4, Glucose 108 H, Calcium 9.1, Total Bilirubin 0.30, AST 19, ALT 18, Alkaline Phosphatase 154 H, Troponin I High Sens 6, Total Protein 7.5, Albumin 3.3, Globulin 4.2, Albumin/Globulin Ratio 0.8 L, Lipase 32 01/20/24 20:17: Urine Color Yellow, Urine Clarity Cloudy, Urine pH 6.5, Ur Specific Sebastian 1.010, Urine Protein 15 H, Urine Glucose (UA) Normal, Urine Ketones Negative, Urine Occult Blood 10 H, Urine Nitrite Positive H, Urine Bilirubin Negative, Urine Urobilinogen Normal, Ur Leukocyte Esterase 500 H, Urine RBC 0-5 SEEN, Urine WBC 10-25 SEEN, Ur Squamous Epith Cells 0-5 SEEN, Urine Bacteria 2+, WBC Casts 0-5 SEEN, Urine Mucus 1+ Micro: Microbiology 01/20/24 18:42 Mucosa - Nose SARS-CoV-2, Influenza & RSV (PCR) - Final Imaging Radiology Impression Chest X-Ray 01/20/24 19:13 IMPRESSION: No radiographic evidence of acute cardiopulmonary disease. Electronically Signed: Solomon Corona MD at 19:32 EST , Assessment & Plan Assessment/Plan (1) Acute cystitis without hematuria: (2) Abrasion of cornea, right: QUALIFIERS: Encounter type: initial encounter Qualified Code(s): S05.01XA - Injury of conjunctiva and corneal abrasion without foreign body, right eye, initial encounter (3) Leukocytosis, unspecified: QUALIFIERS: Leukocytosis type: unspecified Qualified Code(s): D72.829 - Elevated white blood cell count, unspecified (4) Severe hypothyroidism: (5) Morbid obesity with BMI of 50.0-59.9, adult: (6) Sleep apnea: QUALIFIERS: Sleep apnea type: obstructive Qualified Code(s): G47.33 - Obstructive sleep apnea (adult) (pediatric) (7) Generalized weakness: (8) Malaise: PLAN: Plan 1. Acute cystitis; without hematuria with a corresponding Leukocytosis of 14.5 K present on admission with a known history of UTI - Admit to general medical floor. Continue empiric IV Zosyn chosen by ER physician based on previous culture and sensitivity data. New urine culture pending. Give acidophilus probiotic to replace kingston. Give Tylenol prn for [id number] (level 1-5/10) pain or fever. Give IV Morphine prn for severe (level 6-10/10) pain. 2. Corneal Abrasion of the Right eye complicating #1 - Resume Erythromycin ointment TID. 3. Highly elevated TSH of 60 present on admission suspected to be due to poor absorption of her relatively high-dose Levothyroxine compounding #1 & #2 - I spoke with pharmacist to schedule this agent two hours before she is given her other routine medications. 4. Morbid obesity; with BMI of 52.4 this admission plus DAVY; on BiPAP adding to the burden of disease outlined from #1 - #3 - Weight loss will be recommended. Severely elevated TSH noted above. This complicates her case and may hamper her recovery. 5. Generalized Weakness with Malaise due to #1 - #4 in the setting of known previously OA; with chronic back pain and poor mobility with patient typically ambulating with cane or walker on diclofenac gel- PT/OT and Case Management to consult and treat on-rounds in AM for further recommendations with help appreciated in advance. 6. Essential hypertension; on atenolol, valsartan and furosemide - Continue home regimen as previous plus give prn IV Hydralazine for systolic blood pressure > 160 mmHg. 7. Hyperlipidemia; on ezetimbe - Resume current management. 8. Hypothyroidism - Continue Synthroid as previous. 9. DM-2; of unknown control - ADA diet. FSBS q. AC/HS plus SSI. Check HgbA1c to objectively assess quality of diabetic control. 10. Peripheral neuropathy; on gabapentin - Maintain gabapentin as before. 11. CAD; with history of LHC (2020); on ISMO - Stable. 12. History of syncope - Noted with no signs of recurrence. 13. History of diastolic dysfunction - Noted. 14. History of atypical chest pain - Noted. 15. History of DVT/PE; not currently on anticoagulation - Stable. 16. History of CVA - Noted. 17. History of CKD; stage IV that has subsequently improved - Noted. 18. History of cystoscopy; s/p stents (2021 & 2022) - Noted. 19. History of microcytic / iron deficiency anemia - Stable with hemoglobin of 10.9 g/dL present on admission. 20. History of tobacco abuse; with subsequent COPD with 'blue bloater' phenotype - Stable with no evidence of acute flare. 21. History of celiac disease - Noted. 22. History of B12 deficiency - Check B12 level this admission. 23. RLS - Stable. 24. Depression with anxiety; on citalopram, trazodone and prn lorazepam - Maintain on current therapy. 25. History of migraine headaches; on monthly sq emgality and prn naratriptan - Patient denies headache at this time. Resume prn naratriptan as before. 26. Chronic vertigo; on prn meclizine - Continue current treatment. 27. History of muscle spasms; on prn cyclobenzaprine - Stable. 28. GERD - Apparently stable with patient not on H2-skylar or PPI. 29. Gout - Stable with no evidence of acute flare. 30. DVT prophylaxis - Lovenox 40 mg sq BID. Total time: Approximately (but not less than) 75 minutes. Charges/Coding Visit Charges Inpatient E&M: 26969 Init Hosp L3
[2024-01-20 22:20] VITALS: BP 127/85; PULSE 88; RESP 18; TEMP 36.8; O2SAT 96
[2024-01-20] MEDS: Piperacil/Tazobactam 3.375 GM in 0.9% Normal Saline (50mL MB+) 50 ML IV (22:38)
[2024-01-20 22:57] LABS: Hemoglobin A1c 6.5 % (3.8-5.6)
[2024-01-20 23:14] LABS: Lactic Acid 1.7 mmol/L (0.4-1.9)
[2024-01-20 23:34] VITALS: BMI 52.0
[2024-01-21] VITALS (13 sets, daily range): BP systolic 98–121; BP diastolic 51–79; PULSE 72–88; RESP 11–20; TEMP 36.5–36.9; O2SAT 90–98
[2024-01-21] MEDS: Scopolamine 1mg/72hr Patch 1 PATCH TD (00:27)
[2024-01-21] MEDS: Losartan Potassium 50 MG Tablet PO ×3 (00:27→20:21)
[2024-01-21] MEDS: traZODone 50 MG Tablet PO ×2 (00:27→20:25)
[2024-01-21] MEDS: Gabapentin 300 MG Capsule PO ×4 (00:30→20:25)
[2024-01-21] MEDS: Nystatin Powder 15gm Bottle 1 APPLIC TOPICAL ×4 (00:33→20:23)
[2024-01-21] MEDS: Albuterol 2.5 MG/3 ML VIAL.NEB. INHALATION (01:56)
--- NOTE | 2024-01-21 02:32 | CPS ---
Patient requested Bipap for night time use, patient stated she will have a family member bring in her machine tmw. Patient stated her home settings are 10/4 with a small full face mask.
[2024-01-21] MEDS: Levothyroxine 100 MCG Tablet 200 MCG PO (05:37)
[2024-01-21] MEDS: cycloBENZAPRine HCl 5 MG TABLET PO ×3 (05:37→20:22)
[2024-01-21] MEDS: Piperacil/Tazobactam 3.375 GM in 0.9% Normal Saline (50mL MB+) 50 ML IV ×3 (05:39→20:28)
[2024-01-21] MEDS: Erythromycin Base 1 OPTH.TUBE 1 APPLIC RIGHT EYE ×3 (05:40→20:20)
--- NOTE | 2024-01-21 07:55 | PN.HOSP_ITS ---
Reason for Visit Reason for Visit: Diagnoses Elevated white blood cell count, unspecified (01/20/24) Hypothyroidism, unspecified (01/20/24) Morbid (severe) obesity due to excess calories (01/20/24) Obstructive sleep apnea (adult) (pediatric) (01/20/24) Acute cystitis without hematuria (01/20/24) Weakness (01/20/24) Other malaise (01/20/24) Injury of conjunctiva and corneal abrasion without foreign body, right eye, initial encounter (01/20/24) Body mass index [BMI] 50.0-59.9, adult (01/20/24) Subjective Subjective Patient reports some shortness of breath which has been worse over couple of weeks and has some increased mucus but not necessarily increased cough or sputum production, currently feeling more short of breath but does not feel like her CPAP was working last night. I still little bit irritated, also reports some abdominal pain and nausea Objective Data Objective Data Vital Signs: Vital Signs Temp Pulse Resp BP Pulse Ox O2 Del Method FiO2 97.7 F L 87 11 L 121/67 H 90 Room Air 01/21/24 00:22 01/21/24 02:31 01/21/24 02:31 01/21/24 00:22 01/21/24 02:31 01/21/24 02:05 01/21/24 02:31 Oxygen Delivery Method Room Air Weight: 137.4 kg Body Mass Index (BMI) 52.0 Intake & Output: Intake and Output for Last 24 Hours 01/19/24 01/20/24 01/21/24 23:59 23:59 23:59 Intake Total 550 / 550 400 / 400 Balance 550 / 550 400 / 400 Lab / Micro Data 01/21/24 07:34 01/21/24 07:34 Labs: Laboratory Results - last 24 hr 01/20/24 18:55: WBC 14.5 H, RBC 3.96 L, Hgb 10.9 L, Hct 35.6 L, MCV 89.9, MCH 27.5, MCHC 30.6 L, RDW Std Deviation 63.1 H, RDW Coeff of Alfredo 19.4 H, Plt Count 355, MPV 10.3, Immature Gran % (Auto) 0.500, Neut % (Auto) 70.5 H, Lymph % (Auto) 16.4 L, [place] % (Auto) 6.9, Eos % (Auto) 5.1 H, Baso % (Auto) 0.6, A bsolute Neuts (auto) 10.3 H, Absolute Lymphs (auto) 2.39, Nucleated RBC % 0, Sodium 139, Potassium 4.8, Chloride 106, Carbon Dioxide 27.0, Anion Gap 6, BUN 12, Creatinine 1.15 H, Estim Creat Clear Calc 78.78, Est GFR (MDRD) Af Amer 63, Est GFR (MDRD) Non-Af 52 L, BUN/Creatinine Ratio 10.4, Glucose 108 H, Calcium 9.1, Total Bilirubin 0.30, AST 19, ALT 18, Alkaline Phosphatase 154 H, Troponin I High Sens 6, Total Protein 7.5, Albumin 3.3, Globulin 4.2, Albumin/Globulin Ratio 0.8 L, Lipase 32 01/20/24 20:17: Urine Color Yellow, Urine Clarity Cloudy, Urine pH 6.5, Ur Specific [place] 1.010, Urine Protein 15 H, Urine Glucose (UA) Normal, Urine Ketones Negative, Urine Occult Blood 10 H, Urine Nitrite Positive H, Urine Bilirubin Negative, Urine Urobilinogen Normal, Ur Leukocyte Esterase 500 H, Urine RBC 0-5 SEEN, Urine WBC 10-25 SEEN, Ur Squamous Epith Cells 0-5 SEEN, Urine Bacteria 2+, WBC Casts 0-5 SEEN, Urine Mucus 1+ 01/20/24 22:04: Hemoglobin A1c 6.5 H, TSH 60.000 H 01/20/24 22:40: Lactic Acid 1.7 Micro: Microbiology 01/20/24 18:42 Mucosa - Nose SARS-CoV-2, Influenza & RSV (PCR) - Final Radiography Diagnostic Testing: Radiology Impression Chest X-Ray 01/20/24 19:13 IMPRESSION: No radiographic evidence of acute cardiopulmonary disease. Electronically Signed: Solomon Corona MD at 19:32 EST , Rhythm Strip Rhythm Strip: Sinus Rhythm Rate: 78 Ectopy: None Physical Exam Narrative General: Alert, oriented, appears to feel unwell HEENT: Atraumatic, normocephalic Eyes: Keeps right eye closed Neck: Supple Respiratory: Diminished bilaterally, possibly secondary to body habitus, does not appear to have overt increased work of breathing Cardiovascular: Regular rate and rhythm GI: Protuberant Extremities: No significant pitting edema Musculoskeletal: Moving all extremities Neuro: No overt focal neurological deficits Skin: No rashes appreciated Psych: Cooperative Assessment & Plan Assessment/Plan (1) UTI (urinary tract infection): PLAN: Plan # Increased shortness of breath in setting of COPD -Patient 90% on room air today -Continue nebs and inhaled budesonide -Chest x-ray unrevealing -COVID-negative, will check full respiratory panel -Suspect patient's significant hypothyroid state is contributing to her increased shortness of breath in the setting and her general feeling of being unwell -Patient while talking with dropped down to 88% but then would be 96% when resting -Feels more short of breath after her CPAP not working overnight, this is being investigated and she will place this on for a nap -Had recent normal echo, continue p.o. Lasix -Patient not wheezing and does not necessarily have increased cough or sputum production so do not think she meets criteria for COPD exacerbation, continue inhaled corticosteroids, no IV steroids ordered at this time. If patient refractory to nebs and CPAP may need to consider additional workup and treatment -Incentive spirometer ordered # Right eye with corneal abrasion -Patient found in ED -Continue erythromycin ointment -Will need to follow-up with ophthalmology on an outpatient basis #UTI -UA suggestive of UTI and patient with leukocytosis of 14.5 -Patient on Zosyn due to history of Pseudomonas UTI -Urine culture pending #Hypothyroidism -TSH very elevated at 60 -Patient has with difficulty with compliance -She was able to tell me how she is supposed to take it (in the morning with water alone without food or other medications and wait before taking anything else) however does report that she misses doses sometimes -Counseled on the importance of compliance # Generalized weakness -Secondary to UTI and significant hypothyroid state -Treat underlying UTI and administer Synthroid 2 hours before other medications -PT/OT -Case management consult #Type 2 diabetes mellitus -Glucose checks and sliding scale insulin -A1c 6.5 #Hypertension -Patient's home medications continued #Depression/anxiety -Continue home medications # History of migraines -On Emgality on outpatient basis and naratriptan as needed #Hx nonobstructive CAD/hyperlipidemia -Reported adverse effect aspirin of nausea so she is not taking this -She is on Zetia, atorvastatin, Imdur however #DAVY -Continue home NIPPV if applicable # Celiac disease by history -Gluten-free diet #Morbid obesity -BMI documented as 52 kg/m? at time of admission -Complicates treatment, prognosis, outcomes -Recommend weight loss and lifestyle changes #DVT ppx: Lovenox subcu Leanne Rosas MD Time spent in the patient's overall evaluation, decision-making process, review of diagnostic data, adjustment of management, discussion with other providers, nursing and ancillary staff involved in patient's care documentation,41 Minutes Charges/Coding Visit Charges Inpatient E&M: 29756 Subs Hosp L2
[2024-01-21 08:00] LABS: Absolute Lymphocyte Count 1.94 X10^3/uL (0.83-4.51); Absolute Neutrophil Count 6.7 X10^3/uL (2.0-7.7); Basophil# 0.07 X10^3/uL; Basophil% 0.7 % (0-1); Eosinophil# 0.61 X10^3/uL; Hematocrit 32.2 % (37-47); Hemoglobin 9.9 g/dL (12.0-15.0); Lymphocyte # 1.94 X10^3/ul (0.83-4.51); Lymphocyte % 18.9 % (19-41); Mean Corp Hgb Conc 30.7 g/dL (32-36); Mean Corpuscular Hgb 27.8 pg (27.0-32.0); Mean Corpuscular Volume 90.4 fL (81-99); Mean Platelet Vol. 10.1 fl (6.2-12.0); Monocyte# 0.91 X10^3/uL; Monocyte% 8.9 % (0-10); NRBC Flagged by Analyzer 0 % (0-5); Neutrophil # 6.66 X10^3/uL (2.7-7.7); Neutrophil % 64.9 % (47-70); Platelet Count 335 K/mm3 (150-450); RBC Distribution Width CV 19.2 % (11.6-14.6); RBC Distribution Width SD 62.6 fl (35.1-43.9); Red Blood Count 3.56 M/mm3 (4.2-5.4); White Blood Count 10.3 K/mm3 (4.4-11.0)
[2024-01-21] MEDS: Lactobacillis Acidophilus 1 CAP PO ×4 (08:10→20:21)
[2024-01-21] MEDS: Potassium Chloride Oral Tablet 10 MEQ PO (08:10)
[2024-01-21] MEDS: Ascorbic Acid 500 MG Tablet 1000 MG PO ×2 (08:12→17:16)
[2024-01-21] MEDS: Furosemide 40 MG Tablet PO (08:13)
[2024-01-21] MEDS: Isosorbide Mononitrate 30 MG Tablet PO (08:13)
[2024-01-21] MEDS: Cholecalciferol (Vit D3) 125 MCG CAPSULE (5,000 UNITS) PO (08:14)
[2024-01-21] MEDS: Zinc Sulfate 50 mg zinc (220 mg) ORAL capsule PO (08:15)
[2024-01-21] MEDS: Ezetimibe 10 MG Tablet PO (08:15)
[2024-01-21 09:13] LABS: ALB/GLOB Ratio 0.8 RATIO (0.9-2.4); AST(SGOT) 19 U/L (15-37); Alanine Aminotransfer ALT/SGPT 18 U/L (13-56); Albumin, Serum 2.9 g/dL (3.2-5.0); Alkaline Phosphatase 137 U/L (45-117); Anion Gap 7 (5-15); BUN 11 mg/dL (7-18); Calcium,Total 8.9 mg/dL (8.5-10.1); Chloride 106 mmol/L (98-107); Creatinine, Serum 1.22 mg/dL (0.55-1.02); EST Glomerular Filtration Rate 49 mL/min (>60); Est Glom Filt Rate - Afr Amer 59 mL/min (>60); Globulin 3.8 g/dL (2.2-4.2); Glucose 121 mg/dL (74-106); Protein, Total 6.7 g/dL (6.4-8.2); Sodium Level 140 mmol/L (136-145)
[2024-01-21] MEDS: Citalopram 40 MG TABLET PO (09:15)
[2024-01-21] MEDS: Acetaminophen 325 MG Tablet 650 MG PO ×2 (09:18→20:25)
[2024-01-21 09:41] LABS: Bedside Glucose 126 mg/dL (74-106)
[2024-01-21] MEDS: guaiFENesin 1,200 MG Tablet 1200 MG PO ×2 (09:43→20:29)
[2024-01-21] MEDS: Budesonide Respules 0.5 MG/2 ML AMPUL.NEB. INHALATION ×2 (09:59→19:55)
[2024-01-21] MEDS: Ipratropium/Albuterol Sulfate 3 ML AMPUL.NEB INHALATION ×2 (09:59→19:55)
[2024-01-21 10:30] LABS: Hemoglobin A1c 6.3 % (3.8-5.6)
[2024-01-21] MEDS: Insulin Lispro 100 UNIT/ML INSULN.PEN SC (10:57)
[2024-01-21 11:34] LABS: Bedside Glucose 164 mg/dL (74-106)
--- NOTE | 2024-01-21 12:43 | CASEMGMT ---
INEZ SHORE Assessment: Face to Face with pt for initial transition planning/care coordination assessment. INEZ SHORE introduced self and role at [facility], pt voices understanding and consents to assessment. Pt is A&O x4 and answers all questions appropriately at this time. Pt lying in bed in no distress. Care providers, pharmacy, and demographics verified/updated. Admitting Dx: UTI with conjunctivitis of the R eye PCP:Herman Specialists: Preferred Pharmacy: [facility] Insurance: [facility] Dual, [facility] Community Plan Prescription Benefit: yes LNOK: Elian Gray, ex ; Nadeen Johnson, mother Living Arrangements: Pt lives alone in a ground level apt with no steps to enter. Pt reports she is I in ADLs and mother assists with IADLs. Pt denies concerns at home. Transportation: Pt drives self and denies concerns with transportation. DME:bipap, walker, crutches HHC/SNF: Pt has had [facility] HHC in the past, denies SNF stays. Pt states no concerns with going home at time of dc. Pt denies need for HHC or any other homegoing services. Therapy eval'd with no further therapy recommended. Updated hospitalist. Pt states no further concerns/needs. CM to follow. Advised pt to ask CM if any further question/concerns/needs arise, voices understanding. Pt Goal: Home Plan: Home Brayan WILEY CM
[2024-01-21 17:41] LABS: Bedside Glucose 135 mg/dL (74-106)
[2024-01-21] MEDS: Enoxaparin 40 MG/0.4 ML Syringe SC (20:22)
[2024-01-21] MEDS: Atorvastatin Calcium 80 MG Tablet PO (20:22)
[2024-01-21] MEDS: MELATONIN 3 MG TABLET PO (22:56)
[2024-01-21] MEDS: Rizatriptan Benzoate 5 MG Tablet PO (22:56)
[2024-01-22] VITALS (12 sets, daily range): BP systolic 108–110; BP diastolic 52–87; PULSE 65–86; RESP 14–18; TEMP 36.6–36.8; O2SAT 93–96; BMI 51.7
[2024-01-22] MEDS: Piperacil/Tazobactam 3.375 GM in 0.9% Normal Saline (50mL MB+) 50 ML IV ×3 (05:12→21:15)
[2024-01-22] MEDS: Levothyroxine 100 MCG Tablet 200 MCG PO (05:13)
[2024-01-22] MEDS: Erythromycin Base 1 OPTH.TUBE 1 APPLIC RIGHT EYE ×3 (05:13→21:19)
[2024-01-22] MEDS: cycloBENZAPRine HCl 5 MG TABLET PO ×3 (05:13→21:20)
[2024-01-22] MEDS: Nystatin Powder 15gm Bottle 1 APPLIC TOPICAL ×3 (05:14→21:17)
[2024-01-22] MEDS: Gabapentin 300 MG Capsule PO ×3 (05:18→21:17)
[2024-01-22] MEDS: Acetaminophen 325 MG Tablet 650 MG PO ×3 (05:42→21:17)
[2024-01-22 05:53] LABS: Bedside Glucose 107 mg/dL (74-106)
[2024-01-22 06:10] LABS: Absolute Lymphocyte Count 2.69 X10^3/uL (0.83-4.51); Absolute Neutrophil Count 8.3 X10^3/uL (2.0-7.7); Basophil% 0.8 % (0-1); Eosinophil# 0.68 X10^3/uL; Eosinophils% 5.2 % (0-5); Hematocrit 34.1 % (37-47); Hemoglobin 10.5 g/dL (12.0-15.0); Lymphocyte # 2.69 X10^3/ul (0.83-4.51); Lymphocyte % 20.7 % (19-41); Mean Corp Hgb Conc 30.8 g/dL (32-36); Mean Corpuscular Hgb 27.9 pg (27.0-32.0); Mean Corpuscular Volume 90.5 fL (81-99); Mean Platelet Vol. 10.3 fl (6.2-12.0); Monocyte# 1.16 X10^3/uL; Monocyte% 8.9 % (0-10); NRBC Flagged by Analyzer 0.2 % (0-5); Neutrophil # 8.26 X10^3/uL (2.7-7.7); Neutrophil % 63.4 % (47-70); Platelet Count 341 K/mm3 (150-450); RBC Distribution Width CV 19.6 % (11.6-14.6); RBC Distribution Width SD 63.1 fl (35.1-43.9); Red Blood Count 3.77 M/mm3 (4.2-5.4)
[2024-01-22] MEDS: Ondansetron 4 MG/2 ML Vial IV ×3 (06:37→22:09)
[2024-01-22 07:05] LABS: ALB/GLOB Ratio 0.7 RATIO (0.9-2.4); AST(SGOT) 19 U/L (15-37); Alanine Aminotransfer ALT/SGPT 19 U/L (13-56); Alkaline Phosphatase 139 U/L (45-117); Anion Gap 7 (5-15); BUN 13 mg/dL (7-18); BUN/Creat Ratio 9.2 RATIO (10-20); Calcium,Total 9.4 mg/dL (8.5-10.1); Chloride 103 mmol/L (98-107); Creatinine, Serum 1.42 mg/dL (0.55-1.02); EST Glomerular Filtration Rate 41 mL/min (>60); Est Glom Filt Rate - Afr Amer 50 mL/min (>60); Estimated Creatinine Clearance 63.49 ml/min; Globulin 4.2 g/dL (2.2-4.2); Glucose 119 mg/dL (74-106); Protein, Total 7.2 g/dL (6.4-8.2); Sodium Level 138 mmol/L (136-145)
--- NOTE | 2024-01-22 08:08 | PCM.PN.HOSP ---
Reason for Visit Reason for Visit: Diagnoses Elevated white blood cell count, unspecified (01/20/24) Hypothyroidism, unspecified (01/20/24) Morbid (severe) obesity due to excess calories (01/20/24) Obstructive sleep apnea (adult) (pediatric) (01/20/24) Acute cystitis without hematuria (01/20/24) Urinary tract infection, site not specified (01/20/24) Weakness (01/20/24) Other malaise (01/20/24) Injury of conjunctiva and corneal abrasion without foreign body, right eye, initial encounter (01/20/24) Body mass index [BMI] 50.0-59.9, adult (01/20/24) Subjective Subjective Patient with some nausea which has been off and on for the past couple of weeks as well as some lower abdominal pain, denies any diarrhea or changes in bowel movements, denies any association with food and said it is at random, patient said the nausea comes and goes, denies any shortness of breath with the bases., No cough but does have some mucus production Objective Data Objective Data Vital Signs: Vital Signs Temp Pulse Resp BP Pulse Ox O2 Del Method O2 Flow Rate 97.9 F 82 16 110/87 H 93 Bi-pap 2 01/22/24 05:22 01/22/24 07:37 01/22/24 07:37 01/22/24 05:22 01/22/24 07:37 01/22/24 05:22 01/22/24 02:35 FiO2 2 01/22/24 07:37 Oxygen Flow Rate (L/min) 2 Oxygen Delivery Method Bi-pap Weight: 137.4 kg Body Mass Index (BMI) 51.7 Intake & Output: Intake and Output for Last 24 Hours 01/20/24 01/21/24 01/22/24 23:59 23:59 23:59 Intake Total 550 / 550 1670 / 1670 350 / 350 Balance 550 / 550 1670 / 1670 350 / 350 Lab / Micro Data 01/22/24 05:32 01/22/24 05:32 Labs: Laboratory Results - last 24 hr 01/21/24 07:34: Sodium 140, Potassium 4.0, Chloride 106, Carbon Dioxide 27.0, Anion Gap 7, BUN 11, Creatinine 1.22 H, Estim Creat Clear Calc 73.90, Est GFR (MDRD) Af Amer 59 L, Est GFR (MDRD) Non-Af 49 L, BUN/Creatinine Ratio 9.0 L, Glucose 121 H, Hemoglobin A1c 6.3 H, Calcium 8.9, Total Bilirubin 0.30, AST 19, ALT 18, Alkaline Phosphatase 137 H, Total Protein 6.7, Albumin 2.9 L, Globulin 3.8, Albumin/Globulin Ratio 0.8 L 01/21/24 08:19: POC Glucose 126 H 01/21/24 10:54: POC Glucose 164 H 01/21/24 17:14: POC Glucose 135 H 01/22/24 05:32: WBC 13.0 H, RBC 3.77 L, Hgb 10.5 L, Hct 34.1 L, MCV 90.5, MCH 27.9, MCHC 30.8 L, RDW Std Deviation 63.1 H, RDW Coeff of Alfredo 19.6 H, Plt Count 341, MPV 10.3, Immature Gran % (Auto) 1.000 H, Neut % (Auto) 63.4, Lymph % (Auto) 20.7, [place] % (Auto) 8.9, Eos % (Auto) 5.2 H, Baso % (Auto) 0.8, Absolute Neuts (auto) 8.3 H, Absolute Lymphs (auto) 2.69, Nucleated RBC % 0.2, Sodium 138, Potassium 4.0, Chloride 103, Carbon Dioxide 28.0, Anion Gap 7, BUN 13, Creatinine 1.42 H, Estim Creat Clear Calc 63.49, Est GFR (MDRD) Af Amer 50 L, Est GFR (MDRD) Non-Af 41 L, BUN/Creatinine Ratio 9.2 L, Glucose 119 H, Calcium 9.4, Total Bilirubin 0.50, AST 19, ALT 19, Alkaline Phosphatase 139 H, Total Protein 7.2, Albumin 3.0 L, Globulin 4.2, Albumin/Globulin Ratio 0.7 L, POC Glucose 107 H Micro: Microbiology 01/21/24 10:00 Mucosa - Nasopharyngeal Respiratory Panel (PCR) - Final 01/20/24 18:42 Mucosa - Nose SARS-CoV-2, Influenza & RSV (PCR) - Final Rhythm Strip Rhythm Strip: Sinus Rhythm Rate: 78 Ectopy: None Physical Exam Narrative General: Awake, alert, no acute distress HEENT: Atraumatic, normocephalic Eyes: Keeps right eye closed but can open it Neck: Supple Respiratory: Diminished bilaterally, suspect secondary to body habitus, no increased work of breathing Cardiovascular: Regular rate and rhythm GI: Protuberant, nontender on palpation, no rebound, guarding, rigidity Extremities: No significant pitting edema Musculoskeletal: Moving all extremities Neuro: No overt focal neurological deficits Skin: No rashes appreciated Psych: Cooperative Assessment & Plan Assessment/Plan (1) UTI (urinary tract infection): PLAN: Plan # Increased shortness of breath in setting of COPD -Patient 90% on room air today -Continue nebs and inhaled budesonide -Chest x-ray unrevealing -COVID-negative, will check full respiratory panel -Suspect patient's significant hypothyroid state is contributing to her increased shortness of breath in the setting and her general feeling of being unwell -Patient while talking with dropped down to 88% but then would be 96% when resting -Feels more short of breath after her CPAP not working overnight, this is being investigated and she will place this on for a nap -Had recent normal echo, continue p.o. Lasix -Patient not wheezing and does not necessarily have increased cough or sputum production so do not think she meets criteria for COPD exacerbation, continue inhaled corticosteroids, no IV steroids ordered at this time. If patient refractory to nebs and CPAP may need to consider additional workup and treatment -Incentive spirometer ordered -01/21: Continue to treat patient's hypothyroidism, continuing nebs and inhaled budesonide, continue Mucinex, no specific etiology identified and patient reports she is chronically short of breath and at present does not feel it is worse than her baseline, patient with rising creatinine so Lasix will be held this a.m., will need to consider resuming tomorrow pending respiratory status and kidney function #N/v -Patient reports this and some lower abdominal pain off and on for a couple of weeks, query if it could be associated with UTI, abdominal exam benign, patient with no changes in her bowels -Continue to treat UTI, if not improving may need to consider further abdominal imaging or workup -Continue scopolamine patch and Zofran as needed # Elevated creatinine -Increased creatinine, holding Lasix normal potassium today and suspect patient is little bit volume depleted -Patient does not quite meet criteria for MARYANA today but if it continues to trend up she will indeed -Repeat in a.m. -BP a little bit low hide given increased creatinine will cut losartan in half # Right eye with corneal abrasion -Patient found in ED -Continue erythromycin ointment -Will need to follow-up with ophthalmology on an outpatient basis -01/21: Continue erythromycin ointment and supportive care #UTI -UA suggestive of UTI and patient with leukocytosis of 14.5 -Patient on Zosyn due to history of Pseudomonas UTI -Urine culture pending -01/21: Urine culture still pending, will continue Zosyn #Hypothyroidism -TSH very elevated at 60 -Patient has with difficulty with compliance -She was able to tell me how she is supposed to take it (in the morning with water alone without food or other medications and wait before taking anything else) however does report that she misses doses sometimes -Counseled on the importance of compliance -01/21: Continue to encourage compliance and will continue Synthroid # Generalized weakness -Secondary to UTI and significant hypothyroid state -Treat underlying UTI and administer Synthroid 2 hours before other medications -PT/OT -Case management consult -01/21: Patient did fairly well with therapy, will likely be able to go home on discharge #Type 2 diabetes mellitus -Glucose checks and sliding scale insulin -A1c 6.5 -01/21: Fasting glucose 107, continue to monitor and adjust as necessary #Hypertension -Patient's home medications continued -01/21: Slightly on the low side, will cut losartan in half and further adjust as indicated Chronic medical problems: #Depression/anxiety -Continue home medications # History of migraines -On Emgality on outpatient basis and naratriptan as needed #Hx nonobstructive CAD/hyperlipidemia -Reported adverse effect aspirin of nausea so she is not taking this -She is on Zetia, atorvastatin, Imdur however #DAVY -Continue home NIPPV # Celiac disease by history -Gluten-free diet #Morbid obesity -BMI documented as 52 kg/m? at time of admission -Complicates treatment, prognosis, outcomes -Recommend weight loss and lifestyle changes #DVT ppx: Lovenox subcu Leanne Rosas MD Time spent in the patient's overall evaluation, decision-making process, review of diagnostic data, adjustment of management, discussion with other providers, nursing and ancillary staff involved in patient's care documentation,36 Minutes Charges/Coding Visit Charges Inpatient E&M: 49317 Subs Hosp L2
[2024-01-22] MEDS: Ascorbic Acid 500 MG Tablet 1000 MG PO ×2 (09:23→16:59)
[2024-01-22] MEDS: Enoxaparin 40 MG/0.4 ML Syringe SC ×2 (10:34→21:18)
[2024-01-22] MEDS: guaiFENesin 1,200 MG Tablet 1200 MG PO ×2 (10:37→21:17)
[2024-01-22] MEDS: Isosorbide Mononitrate 30 MG Tablet PO (10:38)
[2024-01-22] MEDS: Lactobacillis Acidophilus 1 CAP PO ×4 (10:38→21:18)
[2024-01-22] MEDS: Zinc Sulfate 50 mg zinc (220 mg) ORAL capsule PO (10:38)
[2024-01-22] MEDS: Cholecalciferol (Vit D3) 125 MCG CAPSULE (5,000 UNITS) PO (10:38)
[2024-01-22] MEDS: Citalopram 40 MG TABLET PO (10:38)
[2024-01-22] MEDS: Ezetimibe 10 MG Tablet PO (10:39)
[2024-01-22] MEDS: Losartan Potassium 25 MG Tablet PO ×2 (10:40→21:19)
[2024-01-22] MEDS: Rizatriptan Benzoate 5 MG Tablet PO ×2 (11:42→22:59)
[2024-01-22 12:03] LABS: Bedside Glucose 122 mg/dL (74-106)
[2024-01-22] MEDS: Albuterol 2.5 MG/3 ML VIAL.NEB. INHALATION (14:20)
[2024-01-22] MEDS: Budesonide Respules 0.5 MG/2 ML AMPUL.NEB. INHALATION ×2 (14:21→19:40)
[2024-01-22] MEDS: Ipratropium/Albuterol Sulfate 3 ML AMPUL.NEB INHALATION (19:40)
[2024-01-22] MEDS: traZODone 50 MG Tablet PO (21:17)
[2024-01-22] MEDS: Atorvastatin Calcium 80 MG Tablet PO (21:20)
[2024-01-22] MEDS: MELATONIN 3 MG TABLET PO (23:57)
[2024-01-23] VITALS (9 sets, daily range): BP systolic 101–136; BP diastolic 67–89; PULSE 78–94; RESP 16–18; TEMP 36.4–36.8; O2SAT 94–98; BMI 52.0
[2024-01-23] MEDS: Ondansetron 4 MG/2 ML Vial IV ×2 (02:39→20:12)
[2024-01-23] MEDS: Levothyroxine 100 MCG Tablet 200 MCG PO (04:04)
[2024-01-23] MEDS: cycloBENZAPRine HCl 5 MG TABLET PO ×3 (04:04→20:12)
[2024-01-23] MEDS: Erythromycin Base 1 OPTH.TUBE 1 APPLIC RIGHT EYE ×3 (04:06→19:59)
[2024-01-23] MEDS: Gabapentin 300 MG Capsule PO ×3 (04:06→20:12)
[2024-01-23] MEDS: Piperacil/Tazobactam 3.375 GM in 0.9% Normal Saline (50mL MB+) 50 ML IV ×3 (04:06→23:46)
[2024-01-23] MEDS: Nystatin Powder 15gm Bottle 1 APPLIC TOPICAL ×3 (04:06→19:54)
[2024-01-23 06:43] LABS: Bedside Glucose 128 mg/dL (74-106)
[2024-01-23] MEDS: Acetaminophen 325 MG Tablet 650 MG PO ×3 (06:48→19:54)
[2024-01-23] MEDS: Budesonide Respules 0.5 MG/2 ML AMPUL.NEB. INHALATION ×2 (06:52→19:29)
[2024-01-23] MEDS: Ipratropium/Albuterol Sulfate 3 ML AMPUL.NEB INHALATION ×3 (06:52→19:29)
[2024-01-23 07:10] LABS: Absolute Lymphocyte Count 2.55 X10^3/uL (0.83-4.51); Absolute Neutrophil Count 7.7 X10^3/uL (2.0-7.7); Basophil# 0.09 X10^3/uL; Basophil% 0.8 % (0-1); Eosinophil# 0.59 X10^3/uL; Eosinophils% 4.9 % (0-5); Hematocrit 33.7 % (37-47); Hemoglobin 10.3 g/dL (12.0-15.0); Lymphocyte # 2.55 X10^3/ul (0.83-4.51); Lymphocyte % 21.3 % (19-41); Mean Corp Hgb Conc 30.6 g/dL (32-36); Mean Corpuscular Hgb 27.7 pg (27.0-32.0); Mean Corpuscular Volume 90.6 fL (81-99); Mean Platelet Vol. 10.2 fl (6.2-12.0); Monocyte# 0.92 X10^3/uL; Monocyte% 7.7 % (0-10); NRBC Flagged by Analyzer 0 % (0-5); Neutrophil # 7.69 X10^3/uL (2.7-7.7); Platelet Count 310 K/mm3 (150-450); RBC Distribution Width CV 19.8 % (11.6-14.6); RBC Distribution Width SD 63.7 fl (35.1-43.9); Red Blood Count 3.72 M/mm3 (4.2-5.4)
[2024-01-23 07:48] LABS: Anion Gap 8 (5-15); BUN 11 mg/dL (7-18); BUN/Creat Ratio 8.5 RATIO (10-20); Chloride 106 mmol/L (98-107); EST Glomerular Filtration Rate 46 mL/min (>60); Est Glom Filt Rate - Afr Amer 55 mL/min (>60); Estimated Creatinine Clearance 69.57 ml/min; Glucose 113 mg/dL (74-106); Potassium 3.8 mmol/L (3.5-5.1); Sodium Level 139 mmol/L (136-145)
[2024-01-23] MEDS: Lactobacillis Acidophilus 1 CAP PO ×4 (08:15→19:55)
[2024-01-23] MEDS: Cholecalciferol (Vit D3) 125 MCG CAPSULE (5,000 UNITS) PO (08:16)
[2024-01-23] MEDS: Isosorbide Mononitrate 30 MG Tablet PO (08:16)
[2024-01-23] MEDS: Ascorbic Acid 500 MG Tablet 1000 MG PO ×2 (08:16→17:46)
[2024-01-23] MEDS: Ezetimibe 10 MG Tablet PO (08:16)
[2024-01-23] MEDS: Losartan Potassium 25 MG Tablet PO ×2 (08:17→20:22)
[2024-01-23] MEDS: Zinc Sulfate 50 mg zinc (220 mg) ORAL capsule PO (08:17)
[2024-01-23] MEDS: Enoxaparin 40 MG/0.4 ML Syringe SC ×2 (08:18→19:57)
[2024-01-23] MEDS: guaiFENesin 1,200 MG Tablet 1200 MG PO ×2 (08:19→19:57)
[2024-01-23] MEDS: Citalopram 40 MG TABLET PO (08:21)
[2024-01-23 08:39] LABS: Vitamin B12 409 pg/mL (211-911)
[2024-01-23 09:44] LABS: Bedside Glucose 122 mg/dL (74-106)
--- NOTE | 2024-01-23 09:54 | PCM.PN.HOSP ---
Subjective Subjective doing well, no issues overnight. Has her chronic lower extremity leg pain that she takes trazodone for Objective Data Objective Data Vital Signs: Vital Signs Temp Pulse Resp BP Pulse Ox O2 Del Method O2 Flow Rate 97.6 F L 86 18 136/89 H 95 Room Air 2 01/23/24 08:08 01/23/24 08:08 01/23/24 08:08 01/23/24 08:08 01/23/24 08:08 01/23/24 08:12 01/23/24 02:30 FiO2 2 01/22/24 23:05 Oxygen Flow Rate (L/min) 2 Oxygen Delivery Method Room Air Weight: 304 lb 7.334 oz Body Mass Index (BMI) 52.0 Intake & Output: Intake and Output for Last 24 Hours 01/22/24 01/23/24 01/24/24 03:59 03:59 03:59 Intake Total 1720 / 1720 1750 / 1750 300 / 300 Balance 1720 / 1720 1750 / 1750 300 / 300 Lab / Micro Data 01/23/24 06:31 01/23/24 06:31 Labs: Laboratory Results - last 24 hr 01/21/24 07:34: Vitamin B12 409 01/22/24 11:42: POC Glucose 122 H 01/22/24 16:54: POC Glucose 122 H 01/23/24 04:22: POC Glucose 128 H 01/23/24 06:31: WBC 12.0 H, RBC 3.72 L, Hgb 10.3 L, Hct 33.7 L, MCV 90.6, MCH 27.7, MCHC 30.6 L, RDW Std Deviation 63.7 H, RDW Coeff of Alfredo 19.8 H, Plt Count 310, MPV 10.2, Immature Gran % (Auto) 1.300 H, Neut % (Auto) 64.0, Lymph % (Auto) 21.3, [place] % (Auto) 7.7, Eos % (Auto) 4.9, Baso % (Auto) 0.8, Absolute Neuts (auto) 7.7, Absolute Lymphs (auto) 2.55, Nucleated RBC % 0, Sodium 139, Potassium 3.8, Chloride 106, Carbon Dioxide 25.0, Anion Gap 8, BUN 11, Creatinine 1.30 H, Estim Creat Clear Calc 69.57, Est GFR (MDRD) Af Amer 55 L, Est GFR (MDRD) Non-Af 46 L, BUN/Creatinine Ratio 8.5 L, Glucose 113 H, Calcium 9.0 Micro: Microbiology 01/20/24 22:40 Blood Culture (Wb) - Anticubital Left Blood Culture - Preliminary No growth in 48 hours. 01/21/24 10:00 Mucosa - Nasopharyngeal Respiratory Panel (PCR) - Final 01/20/24 18:42 Mucosa - Nose SARS-CoV-2, Influenza & RSV (PCR) - Final Rhythm Strip Rhythm Strip: Sinus Rhythm Rate: 78 Ectopy: None Physical Exam Narrative General: Alert, Oriented x3, Cooperative, No apparent distress, morbid obesity HEENT: Atraumatic, PERRLA, EOMI, Normocephalic Oral: Moist Mucosa Neck: Supple, No JVD Lungs: Diminished, Normal air movement, No rhonchi, No wheeze, No rales Cardiovascular: Regular rate, Regular Rhythm, Normal S1, Normal S2, No murmurs Abdomen: Soft, Non Tender, Non-Distended, No Hepato-splenomegaly Extremities: No edema, Capillary Refill Less than 3 Seconds Skin: No rashes, No breakdown Musculoskeletal: No Tenderness to Palpation of Joints or Extremities Neurological: No focal neurological deficits, Motor Exam 5/5 strength throughout, Sensory exam intact to light touch and pain Psych/Mental Status: Normal Affect, Appropriate Assessment & Plan Assessment/Plan (1) UTI (urinary tract infection): PLAN: Plan 1. Increased shortness of breath in setting of COPD -Patient 90% on room air today -Continue nebs and inhaled budesonide -Chest x-ray unrevealing -COVID-negative, will check full respiratory panel -Suspect patient's significant hypothyroid state is contributing to her increased shortness of breath in the setting and her general feeling of being unwell -Patient while talking with dropped down to 88% but then would be 96% when resting -Feels more short of breath after her CPAP not working overnight, this is being investigated and she will place this on for a nap -Had recent normal echo, continue p.o. Lasix -Patient not wheezing and does not necessarily have increased cough or sputum production so do not think she meets criteria for COPD exacerbation, continue inhaled corticosteroids, no IV steroids ordered at this time. If patient refractory to nebs and CPAP may need to consider additional workup and treatment -Incentive spirometer ordered -01/21: Continue to treat patient's hypothyroidism, continuing nebs and inhaled budesonide, continue Mucinex, no specific etiology identified and patient reports she is chronically short of breath and at present does not feel it is worse than her baseline, patient with rising creatinine so Lasix will be held this a.m., will need to consider resuming tomorrow pending respiratory status and kidney function 01/23/2024: Respiratory status is improved and currently on room air 2. N/v with an elevated creatinine -Patient reports this and some lower abdominal pain off and on for a couple of weeks, query if it could be associated with UTI, abdominal exam benign, patient with no changes in her bowels -Continue to treat UTI, if not improving may need to consider further abdominal imaging or workup -Continue scopolamine patch and Zofran as needed ? Appears to be resolved ? Lasix has been held, renal function is improving today will monitor since she is on room air 3. Right eye with corneal abrasion -Patient found in ED -Continue erythromycin ointment -Will need to follow-up with ophthalmology on an outpatient basis -01/21: Continue erythromycin ointment and supportive care 4. UTI with Pseudomonas with weakness and debility ? Continue Zosyn ? Culture pattern resistant to quinolones so does not appear to have a good p.o. option ? Will consult infectious disease for discharge recommendations ? Doing well with therapy, can likely go home on discharge 5. Hypothyroidism -TSH very elevated at 60 -Patient has with difficulty with compliance -She was able to tell me how she is supposed to take it (in the morning with water alone without food or other medications and wait before taking anything else) however does report that she misses doses sometimes -Counseled on the importance of compliance -01/21: Continue to encourage compliance and will continue Synthroid 6. Type 2 diabetes mellitus -Glucose checks and sliding scale insulin -A1c 6.5 -01/21: Fasting glucose 107, continue to monitor and adjust as necessary 7. Essential hypertension -Patient's home medications continued -01/21: Slightly on the low side, will cut losartan in half and further adjust as indicated 8. Depression/anxiety -Continue home medications 9. History of migraines -On Emgality on outpatient basis and naratriptan as needed 10. Hx nonobstructive CAD/hyperlipidemia -Reported adverse effect aspirin of nausea so she is not taking this -She is on Zetia, atorvastatin, Imdur however 11. DAVY -Continue home NIPPV 12. Celiac disease by history -Gluten-free diet 13. Morbid obesity -BMI documented as 52 kg/m? at time of admission -Complicates treatment, prognosis, outcomes -Recommend weight loss and lifestyle changes DVT: Lovenox Charges/Coding Visit Charges Inpatient E&M: 82559 Subs Hosp L2
[2024-01-23 12:08] LABS: Bedside Glucose 134 mg/dL (74-106)
--- NOTE | 2024-01-23 13:29 | CON.PCM.ID_ITS ---
Assessment & Plan Assessment/Plan (1) Acute cystitis without hematuria: PLAN: Ucx pending, prior ucx with PsA, cont zosyn will follow, thank you, d/w primary team HPI Consult Data Date of Consult: 01/23/24 HPI Narrative Reason for Consultation: uti HPI Narrative: shayy DAWSON a 53 F with DAVY, DM, CKD, presented 01/19 with 4-5 days progressive dysuria, nausea, eye redness (R side). Came to ED, now on zosyn, dysuria slightly improved. No fever, no abd or flank pain. Full ROS performed and neg except as noted above. FOR[facility]LY [facility] Medical History MARYANA (acute kidney injury) Walker as ambulation aid Ambulates with cane Low iron History of renal disease High cholesterol DVT (deep venous thrombosis) PONV (postoperative nausea and vomiting) Stroke/cerebrovascular accident Sleep apnea [facility]iology follow-up encounter Scalp hematoma Pulmonary embolism Post-menopausal Thyroid disease Injury of head and neck Dietary restriction Difficulty swallowing BiPAP (biphasic positive airway pressure) dependence COPD (chronic obstructive pulmonary disease) Shortness of breath on exertion Leg cramps History of pain when walking History of edema History of echocardiogram History of stress test Syncope Abnormal glucose Noncompliance DAVY treated with BiPAP UTI (urinary tract infection) Vitamin D deficiency Restless leg syndrome Vitamin B12 deficiency Iron deficiency anemia History of chronic back pain Wears glasses Arthritis Non-smoker Hydronephrosis Depression Anemia Migraine headache Chronic kidney disease Diabetes mellitus Gout Celiac disease Hyperlipidemia GERD (gastroesophageal reflux disease) Dyspnea on exertion Chest pain Hypersomnia Cardiac murmur Microcytic anemia Hypertension Morbid obesity with BMI of 40.0-44.9, adult Asthma Hypothyroidism Anxiety Home Medications ?Medication ?Instructions ?Recorded ?Last Taken ?Type citalopram 40 mg tablet 40 mg PO DAILY DEPRESSION/ANXIETY 07/27/19 09/30/23 History budesonide-formoterol HFA 160 2 puff inhalation BID COPD 04/02/20 09/30/23 History mcg-4.5 mcg/actuation aerosol inhaler (Symbicort) metoclopramide HCl 10 mg tablet 10 mg PO Q6H PRN NAUSEA AND 01/07/23 Unknown Rx (Reglan) VOMTING #20 tabs atorvastatin 80 mg tablet 80 mg PO DAILY CHOLESTEROL 02/10/23 09/30/23 History cyclobenzaprine 5 mg tablet 5 mg PO Q8H MUSCLE SPASMS 02/10/23 09/30/23 History galcanezumab-gnlm 120 mg/mL 120 mg subcut Q30D migraines 07/29/23 Unknown History subcutaneous syringe (Emgality) trazodone 50 mg tablet 50 - 100 mg PO QHS SLEEP 07/29/23 09/30/23 History gabapentin 300 mg capsule 300 mg PO TID pain 09/30/23 09/30/23 History naratriptan 2.5 mg tablet 2.5 mg PO BID PRN migraines 10/01/23 Unknown History furosemide 40 mg tablet 40 mg PO DAILY #30 tabs 10/18/23 Unknown Rx isosorbide mononitrate 30 mg 30 mg PO DAILY HEART #30 tabs 10/18/23 Unknown Rx tablet,extended release 24 hr potassium chloride 10 mEq 10 meq PO DAILY SUPPLEMENT #30 10/18/23 Unknown Rx capsule,extended release caps ezetimibe 10 mg tablet (Zetia) 10 mg PO QDAY #30 tabs 11/28/23 Unknown Rx fluticasone propionate 50 2 spray intranasal Q12H 01/20/24 Unknown History mcg/actuation nasal spray,suspension levothyroxine 200 mcg tablet 200 mcg PO DAILY 01/20/24 Unknown History tramadol 50 mg tablet 50 mg PO TID 01/20/24 Unknown History valsartan 160 mg tablet 160 mg PO BID 01/20/24 Unknown History Allergy/AdvReac Type Severity Reaction Status Date / Time hydrochlorothiazide AdvReac Intermediate Contributes Verified 01/20/24 15:47 to gout naproxen (From Naprosyn) AdvReac Intermediate Nausea Verified 01/20/24 15:47 aspirin AdvReac Nausea Verified 01/20/24 15:47 Family History Father , Age 72 Hypertension Mother CAD (coronary artery disease) Myocardial infarction, Onset Age: 55 Hypertension Sister CAD (coronary artery disease) Brother Cancer Surgical History History of cardiac catheterization History of History of carpal tunnel surgery of right wrist History of carpal tunnel surgery of left wrist Hx of cystoscopy History of left heart catheterization (11/11/20) history of uterine ablation Social History household members: none housing: apartment Smoking Status: Never smoker alcohol intake: never substance use type: does not use caffeine: No Physical Exam Const alert, oriented x3 and no apparent distress General Appearance: cooperative HEENT normocephalic and head/scalp atraumatic Eyes PERRL and EOMs intact bilaterally Neck supple and No nodes Resp normal air movement and clear to auscultation bilaterally Cardio regular rate and regular rhythm GI soft to palpation, non-tender and non-distended Extremity General Extremity: edema Skin no rashes or lesions noted Neuro CN's II-XII intact bilaterally Lab / Micro Data Attestation: I reviewed the patient's lab results. 01/23/24 06:31 01/23/24 06:31 Labs: Laboratory Results - last 24 hr 01/21/24 07:34: Vitamin B12 409 01/22/24 16:54: POC Glucose 122 H 01/23/24 04:22: POC Glucose 128 H 01/23/24 06:31: WBC 12.0 H, RBC 3.72 L, Hgb 10.3 L, Hct 33.7 L, MCV 90.6, MCH 27.7, MCHC 30.6 L, RDW Std Deviation 63.7 H, RDW Coeff of Alfredo 19.8 H, Plt Count 310, MPV 10.2, Immature Gran % (Auto) 1.300 H, Neut % (Auto) 64.0, Lymph % (Auto) 21.3, [place] % (Auto) 7.7, Eos % (Auto) 4.9, Baso % (Auto) 0.8, Absolute Neuts (auto) 7.7, Absolute Lymphs (auto) 2.55, Nucleated RBC % 0, Sodium 139, Potassium 3.8, Chloride 106, Carbon Dioxide 25.0, Anion Gap 8, BUN 11, C reatinine 1.30 H, Estim Creat Clear Calc 69.57, Est GFR (MDRD) Af Amer 55 L, Est GFR (MDRD) Non-Af 46 L, BUN/Creatinine Ratio 8.5 L, Glucose 113 H, Calcium 9.0 01/23/24 11:43: POC Glucose 134 H Micro: Microbiology 01/20/24 22:40 Blood Culture (Wb) - Anticubital Left Blood Culture - Preliminary No growth in 48 hours. Rhythm Strip Rhythm Strip: Sinus Rhythm Rate: 78 Ectopy: None
[2024-01-23 17:17] LABS: Bedside Glucose 97 mg/dL (74-106)
[2024-01-23] MEDS: MELATONIN 3 MG TABLET PO (19:54)
[2024-01-23] MEDS: traZODone 50 MG Tablet PO (19:54)
[2024-01-23] MEDS: Atorvastatin Calcium 80 MG Tablet PO (19:56)
[2024-01-23] MEDS: Rizatriptan Benzoate 5 MG Tablet PO (19:57)
[2024-01-23] MEDS: Scopolamine 1mg/72hr Patch 1 PATCH TD (19:58)
[2024-01-23] MEDS: 0.9% Saline Lock 10 ML Syringe IV (20:12)
--- NOTE | 2024-01-23 21:56 | NURSING ---
Pt puts call biggs on nonstop. Pt encourage to do more for herself. Pt will not put her blanket on herself, Pt unable to put her cpap.
[2024-01-24 02:20] VITALS: BP 124/76; PULSE 90; RESP 16; TEMP 36.1; O2SAT 95
[2024-01-24 03:21] VITALS: O2SAT 94
[2024-01-24] MEDS: Nystatin Powder 15gm Bottle 1 APPLIC TOPICAL (05:46)
[2024-01-24] MEDS: Levothyroxine 100 MCG Tablet 200 MCG PO (05:46)
[2024-01-24] MEDS: Piperacil/Tazobactam 3.375 GM in 0.9% Normal Saline (50mL MB+) 50 ML IV (05:46)
[2024-01-24] MEDS: 0.9% Saline Lock 10 ML Syringe IV ×2 (05:46→09:10)
[2024-01-24] MEDS: Erythromycin Base 1 OPTH.TUBE 1 APPLIC RIGHT EYE (05:46)
[2024-01-24] MEDS: cycloBENZAPRine HCl 5 MG TABLET PO (05:47)
[2024-01-24] MEDS: Gabapentin 300 MG Capsule PO (05:59)
[2024-01-24 06:05] VITALS: BMI 52.4
[2024-01-24 06:37] LABS: Absolute Lymphocyte Count 2.19 X10^3/uL (0.83-4.51); Absolute Neutrophil Count 7.2 X10^3/uL (2.0-7.7); Basophil# 0.12 X10^3/uL; Basophil% 1.1 % (0-1); Eosinophil# 0.62 X10^3/uL; Eosinophils% 5.5 % (0-5); Hematocrit 31.2 % (37-47); Hemoglobin 9.6 g/dL (12.0-15.0); Lymphocyte # 2.19 X10^3/ul (0.83-4.51); Lymphocyte % 19.4 % (19-41); Mean Corp Hgb Conc 30.8 g/dL (32-36); Mean Corpuscular Hgb 27.9 pg (27.0-32.0); Mean Corpuscular Volume 90.7 fL (81-99); Mean Platelet Vol. 10.4 fl (6.2-12.0); Monocyte# 0.98 X10^3/uL; Monocyte% 8.7 % (0-10); NRBC Flagged by Analyzer 0 % (0-5); Neutrophil # 7.19 X10^3/uL (2.7-7.7); Neutrophil % 63.6 % (47-70); Platelet Count 304 K/mm3 (150-450); RBC Distribution Width CV 19.9 % (11.6-14.6); RBC Distribution Width SD 63.8 fl (35.1-43.9); Red Blood Count 3.44 M/mm3 (4.2-5.4); White Blood Count 11.3 K/mm3 (4.4-11.0)
[2024-01-24] MEDS: Ipratropium/Albuterol Sulfate 3 ML AMPUL.NEB INHALATION (06:37)
[2024-01-24] MEDS: Budesonide Respules 0.5 MG/2 ML AMPUL.NEB. INHALATION (06:37)
[2024-01-24 06:38] VITALS: PULSE 79; RESP 16; O2SAT 95
[2024-01-24 07:04] LABS: Anion Gap 7 (5-15); BUN 10 mg/dL (7-18); BUN/Creat Ratio 8.5 RATIO (10-20); Calcium,Total 9.1 mg/dL (8.5-10.1); Chloride 108 mmol/L (98-107); Creatinine, Serum 1.17 mg/dL (0.55-1.02); EST Glomerular Filtration Rate 51 mL/min (>60); Est Glom Filt Rate - Afr Amer 62 mL/min (>60); Estimated Creatinine Clearance 77.75 ml/min; Glucose 112 mg/dL (74-106); Potassium 3.9 mmol/L (3.5-5.1); Sodium Level 140 mmol/L (136-145)
[2024-01-24 07:31] LABS: Bedside Glucose 121 mg/dL (74-106)
[2024-01-24 08:50] VITALS: BP 98/62; PULSE 90; RESP 18; TEMP 36.6; O2SAT 97
[2024-01-24] MEDS: Ascorbic Acid 500 MG Tablet 1000 MG PO (09:10)
[2024-01-24] MEDS: Lactobacillis Acidophilus 1 CAP PO (09:10)
[2024-01-24] MEDS: Cholecalciferol (Vit D3) 125 MCG CAPSULE (5,000 UNITS) PO (09:10)
[2024-01-24] MEDS: Zinc Sulfate 50 mg zinc (220 mg) ORAL capsule PO (09:10)
[2024-01-24] MEDS: guaiFENesin 1,200 MG Tablet 1200 MG PO (09:10)
[2024-01-24] MEDS: Isosorbide Mononitrate 30 MG Tablet PO (09:10)
[2024-01-24] MEDS: Ondansetron 4 MG/2 ML Vial IV (09:10)
[2024-01-24] MEDS: Citalopram 40 MG TABLET PO (09:10)
[2024-01-24] MEDS: Ezetimibe 10 MG Tablet PO (09:10)
[2024-01-24] MEDS: Enoxaparin 40 MG/0.4 ML Syringe SC (09:10)
--- NOTE | 2024-01-24 10:14 | DCINST_ITS ---
Discharge Instructions Diet Discharge Diet: Low fat / Low cholesterol and 1600 Calorie Control Diet DC O2, CPAP, BIPAP needs PSN CPAP & BiPAP: BiPAP & CPAP Settings per PSN Mode BiPAP 01/24/24 03:21 Bipap Delivery Device Face Mask 01/24/24 03:21 BiPAP Inspiratory Pressure 10 01/24/24 03:21 BiPAP Expiratory Pressure 4 01/24/24 03:21 Fraction of Inspired Oxygen ( 2 01/22/24 23:05 FIO2) Total Flow Rate 2 01/24/24 03:21 Additional Home O2 Discharge instructions: No Dressing / Incision Discharge Activity: Return to Normal Activity Dressing / Incision Call your doctor if you observe: Fever of 101 or Higher, Shortness of breath, Dizziness, Fainting spells, Swelling in the ankles, Chest pain and Increased palpitations (irregular heartbeat) Follow Up Care Test Results: Test results from this visit will be discussed in further detail at your follow- up appointment, if applicable. Discharge Plan Admission Admit Date/Time: 01/20/24 21:59 Attending Provider: Mars Chavez Primary Care Provider: Nasreen Sutton Consulting Providers: Renzo Oreilly; Leanne Rosas; Kiran Johnson Discharge Orders/Prescriptions Prescriptions: New ciprofloxacin HCl [Cipro] 500 mg tablet 500 mg PO BID 3 Days Qty: 6 0RF Continued budesonide-formoterol [Symbicort] 160-4.5 mcg/actuation HFA aerosol inhaler 2 puff INHALATION BID ezetimibe [Zetia] 10 mg tablet 10 mg PO QDAY Qty: 30 11RF cyclobenzaprine 5 mg tablet 5 mg PO Q8H atorvastatin 80 mg Tablet 80 mg PO DAILY metoclopramide HCl [Reglan] 10 mg tablet 10 mg PO Q6H PRN (Reason: NAUSEA AND VOMTING ) Qty: 20 0RF Emgality Syringe 120 mg/mL syringe 120 mg subcut Q30D Patient Comments: END OF MONTH trazodone 50 mg tablet 50 - 100 mg PO QHS gabapentin 300 mg capsule 300 mg PO TID naratriptan 2.5 mg tablet 2.5 mg PO BID PRN (Reason: migraines) Rx Instructions: can repeat dose, two hours after first dose taken. do not exceed more than two doses in 24 hours. fluticasone propionate 50 mcg/actuation spray,suspension 2 spray INTRANASAL Q12H Patient Comments: [NO ORIGINAL SIG] tramadol 50 mg tablet 50 mg PO TID levothyroxine 200 mcg tablet 200 mcg PO DAILY valsartan 160 mg tablet 160 mg PO BID citalopram 40 mg tablet 40 mg PO DAILY furosemide 40 mg tablet 40 mg PO DAILY Qty: 30 11RF potassium chloride 10 mEq capsule, extended release 10 meq PO DAILY Qty: 30 11RF isosorbide mononitrate 30 mg tablet extended release 24 hr 30 mg PO DAILY Qty: 30 11RF Referrals / Follow Up: Nasreen Sutton MD [Primary Care Provider] - Within 1 Week Disposition Disposition (needs filled in before D/C Order can be placed): Home, Self Care
--- NOTE | 2024-01-24 10:21 | PCM.PN.ID ---
Physical Exam Narrative Feeling better, dysuria resolved, no fever, mild upset stomach Const alert and no apparent distress General Appearance: cooperative Resp normal air movement and clear to auscultation bilaterally Cardio regular rate and regular rhythm GI soft to palpation, non-tender and non-distended Skin no rashes or lesions noted ID ID: Route of nutrition/ use of supplements: [] Nutritional Intake: [] IV Site: [] Cueto Catheter: [] Assessment & Plan Assessment/Plan (1) Acute cystitis without hematuria: PLAN: Ucx with PsA, sx improved, ok for home with 2-3 days cipro. will follow prn, d/w primary team
[2024-01-24] MEDS: Rizatriptan Benzoate 5 MG Tablet PO (10:31)
--- NOTE | 2024-01-24 11:06 | CASEMGMT ---
RN CM into pt room, pt ready for dc. Pt denies any homegoing needs, pt will dc on po atb.
[2024-01-24 11:20] VITALS: BP 114/75; PULSE 87; RESP 18; TEMP 36.6; O2SAT 96
--- NOTE | 2024-01-24 12:44 | PHA.DC_ITS ---
Pharmacy [facility] has performed discharge medication reconciliation and counseling for this patient. 1. CIPROFLOXACIN 500MG PO BID x 3 days The patient's discharge medication list was reviewed for discrepancies and discrepancies were resolved. The patient was counseled on the following discharge medications and changes in medications for homegoing were reviewed. The Reason for Use, instructions for use, and potential side effects were reviewed for all new medications. The patient's questions regarding all of their medications were answered. The patient was able to verbally demonstrate an understanding of their discharge medications. Patient counseled by student career development specialistFloyd. Medications at Discharge Home Medications citalopram 40 mg tablet 40 mg PO DAILY DEPRESSION/ANXIETY 07/27/19 budesonide-formoterol HFA 160 mcg-4.5 mcg/actuation aerosol inhaler (Symbicort) 2 puff inhalation BID COPD 04/02/20 metoclopramide HCl 10 mg tablet (Reglan) 10 mg PO Q6H PRN NAUSEA AND VOMTING #20 tabs 01/07/23 atorvastatin 80 mg tablet 80 mg PO DAILY CHOLESTEROL 02/10/23 cyclobenzaprine 5 mg tablet 5 mg PO Q8H MUSCLE SPASMS 02/10/23 galcanezumab-gnlm 120 mg/mL subcutaneous syringe (Emgality) 120 mg subcut Q30D migraines 07/29/23 trazodone 50 mg tablet 50 - 100 mg PO QHS SLEEP 07/29/23 gabapentin 300 mg capsule 300 mg PO TID pain 09/30/23 naratriptan 2.5 mg tablet 2.5 mg PO BID PRN migraines 10/01/23 furosemide 40 mg tablet 40 mg PO DAILY #30 tabs 10/18/23 isosorbide mononitrate 30 mg tablet,extended release 24 hr 30 mg PO DAILY HEART #30 tabs 10/18/23 potassium chloride 10 mEq capsule,extended release 10 meq PO DAILY SUPPLEMENT #30 caps 10/18/23 ezetimibe 10 mg tablet (Zetia) 10 mg PO QDAY #30 tabs 11/28/23 fluticasone propionate 50 mcg/actuation nasal spray,suspension 2 spray intranasal Q12H 01/20/24 levothyroxine 200 mcg tablet 200 mcg PO DAILY 01/20/24 tramadol 50 mg tablet 50 mg PO TID 01/20/24 valsartan 160 mg tablet 160 mg PO BID 01/20/24 ciprofloxacin HCl 500 mg tablet (Cipro) 500 mg PO BID 3 days #6 tabs 01/24/24
--- NOTE | 2024-01-24 15:37 | PCM.DC.SUM ---
Providers Date of Admission: 01/20/24 Primary Care Physician: Nasreen Sutton MD Consultations 01/23/24 10:05 Consult: Infectious Disease Routine Consulting Provider: Kiran Johnson Reason for Consult: Psuedomonas UTI with resistance to quinolones EMERGENT Consult: No MD Notified: Yes Date Notified: 01/23/24 Time Notified: 10:22 Method of Notification: Text Reason For Visit: UTI AND CONJUNCTIVITIS OF THE RIGHT EYE Diagnosis Discharge Diagnosis (1) Acute cystitis without hematuria: Status: Acute Code(s): N30.00 - Acute cystitis without hematuria Medications at Discharge Home Medications citalopram 40 mg tablet 40 mg PO DAILY DEPRESSION/ANXIETY 07/27/19 budesonide-formoterol HFA 160 mcg-4.5 mcg/actuation aerosol inhaler (Symbicort) 2 puff inhalation BID COPD 04/02/20 metoclopramide HCl 10 mg tablet (Reglan) 10 mg PO Q6H PRN NAUSEA AND VOMTING #20 tabs 01/07/23 atorvastatin 80 mg tablet 80 mg PO DAILY CHOLESTEROL 02/10/23 cyclobenzaprine 5 mg tablet 5 mg PO Q8H MUSCLE SPASMS 02/10/23 galcanezumab-gnlm 120 mg/mL subcutaneous syringe (Emgality) 120 mg subcut Q30D migraines 07/29/23 trazodone 50 mg tablet 50 - 100 mg PO QHS SLEEP 07/29/23 gabapentin 300 mg capsule 300 mg PO TID pain 09/30/23 naratriptan 2.5 mg tablet 2.5 mg PO BID PRN migraines 10/01/23 furosemide 40 mg tablet 40 mg PO DAILY #30 tabs 10/18/23 isosorbide mononitrate 30 mg tablet,extended release 24 hr 30 mg PO DAILY HEART #30 tabs 10/18/23 potassium chloride 10 mEq capsule,extended release 10 meq PO DAILY SUPPLEMENT #30 caps 10/18/23 ezetimibe 10 mg tablet (Zetia) 10 mg PO QDAY #30 tabs 11/28/23 fluticasone propionate 50 mcg/actuation nasal spray,suspension 2 spray intranasal Q12H 01/20/24 levothyroxine 200 mcg tablet 200 mcg PO DAILY 01/20/24 tramadol 50 mg tablet 50 mg PO TID 01/20/24 valsartan 160 mg tablet 160 mg PO BID 01/20/24 ciprofloxacin HCl 500 mg tablet (Cipro) 500 mg PO BID 3 days #6 tabs 01/24/24 Hospital Course Operations None Procedures None Summary of Care Provided Minutes Spent on Discharge: 35 Hospital Course: Per HPI: shayy DAWSON a 53 F with a past medical history of essential hypertension; on atenolol, valsartan and furosemide, hyperlipidemia; on ezetimbe, hypothyroidism, morbid obesity; with BMI of 52.4 this admission, DAVY; on BiPAP, DM-2; of unknown control, peripheral neuropathy; on gabapentin, CAD; with history of LHC (2020); on ISMO, history of syncope, history of diastolic dysfunction, history of atypical chest pain, history of DVT/PE; not currently on anticoagulation, history of CVA, history of CKD; stage IV that has subsequently improved, history of cystoscopy; s/p stents (2021 & 2022), history of microcytic / iron deficiency anemia, history of tobacco abuse; with subsequent COPD with 'blue bloater' phenotype, history of celiac disease, history of B12 deficiency, RLS, depression with anxiety; on citalopram, trazodone and prn lorazepam, history of migraine headaches; on monthly sq emgality and prn naratriptan, chronic vertigo; on prn meclizine, history of muscle spasms; on prn cyclobenzaprine, GERD, gout, OA; with chronic back pain and poor mobility with patient typically ambulating with cane or walker on diclofenac gel and history of UTI who presents to [facility] ER complaining of Right eye redness and feeling poorly overall. Ms. Gray reports her symptoms began approximately 4 days prior to admission with a gradual-onset of progressively worsening redness and pain of the Right eye. She states she tried to contact her PCP but was unable to get an immediate appointment so she decided to come in for further evaluation and treatment. She also admits to sore throat and feeling dizzy with nausea, malaise and progressively feeling more short of breath. She denies associated fever, chills, vomiting, abdominal pain, chest pain or headache but she does admit to chest tightness and cough with nonbloody mucus production in addition to tinea under her breasts. In the ER she was noted to have a urinalysis positive for evidence of acute cystitis; without hematuria with a corresponding Leukocytosis of 14.5 K present on admission complicated by highly elevated TSH of 60 present on admission suspected to be due to poor absorption of her relatively high-dose Levothyroxine in addition to corneal abrasion of the Right eye and she was then admitted to the general medical floor for ongoing care for stay that is expected to extend beyond 2 midnights. Hospital Course: 1. UTI secondary to Pseudomonas?53-year-old female presented to the hospital feeling overall poorly, her TSH was elevated secondary to noncompliance with her Synthroid and she was also complaining of increasing shortness of breath. She was found to have a UTI and her previous culture showed a fairly resistant Pseudomonas infectious disease was consulted however her repeat culture demonstrated a pansensitive Pseudomonas she was feeling much better by the day of discharge and so I discussed with her the possibility for discharge and she expressed understanding of the risk benefits of going home and would like to go home today. She will complete 3 more days of Cipro 500 mg p.o. twice daily, and I recommend she follow-up with her PCP in 3 to 5 days for outpatient monitoring. 2. Hypothyroidism, right eye corneal abrasion, increase shortness of breath in the setting of COPD?I discussed with her the need to follow-up with an director account management for corneal abrasion as an outpatient. Is not complaining of any eye pain today. As for her hypothyroidism it was noted that her TSH today was 60 and that she needs to continue with her Synthroid, she acknowledged this necessity so her Synthroid dosage was not changed by do recommend outpatient follow-up in a couple weeks to repeat her TSH to make sure that it is improving. As for her increased shortness of breath with her COPD, chest x-rays were unremarkable on admission, she never required any oxygen and was not started on oral steroids, she was continued on inhaled corticosteroids which she takes at home. She was feeling fine today and did not require any oxygen prior to discharge. 3. Type 2 diabetes, essential hypertension, depression, anxiety, history of migraines, nonobstructive CAD, hyperlipidemia, DAVY, celiac disease, morbid obesity are chronic medical conditions which complicate her care. Her home medications were continued where appropriate Physical Exam Narrative General: Alert, Oriented x3, Cooperative, No apparent distress, morbid obesity HEENT: Atraumatic, PERRLA, EOMI, Normocephalic Oral: Moist Mucosa Neck: Supple, No JVD Lungs: Diminished, Normal air movement, No rhonchi, No wheeze, No rales Cardiovascular: Regular rate, Regular Rhythm, Normal S1, Normal S2, No murmurs Abdomen: Soft, Non Tender, Non-Distended, No Hepato-splenomegaly Extremities: No edema, Capillary Refill Less than 3 Seconds Skin: No rashes, No breakdown Musculoskeletal: No Tenderness to Palpation of Joints or Extremities Neurological: No focal neurological deficits, Motor Exam 5/5 strength throughout, Sensory exam intact to light touch and pain Psych/Mental Status: Normal Affect, Appropriate Weight / BMI Weight Weight: 307 lb 4 oz Body Mass Index (BMI) 52.4 ABG / Lab / Microbiology Data 01/24/24 05:37 01/24/24 05:37 Laboratory: Laboratory Results - last 24 hr 01/23/24 17:00: POC Glucose 97 01/24/24 05:37: WBC 11.3 H, RBC 3.44 L, Hgb 9.6 L, Hct 31.2 L, MCV 90.7, MCH 27.9, MCHC 30.8 L, RDW Std Deviation 63.8 H, RDW Coeff of Alfredo 19.9 H, Plt Count 304, MPV 10.4, Immature Gran % (Auto) 1.700 H, Neut % (Auto) 63.6, Lymph % (Auto) 19.4, [place] % (Auto) 8.7, Eos % (Auto) 5.5 H, Baso % (Auto) 1.1 H, Absolute Neuts (auto) 7.2, Absolute Lymphs (auto) 2.19, Nucleated RBC % 0, Sodium 140, Potassium 3.9, Chloride 108 H, Carbon Dioxide 25.0, Anion Gap 7, BUN 10, Creatinine 1.17 H, Estim Creat Clear Calc 77.75, Est GFR (MDRD) Af Amer 62, Est GFR (MDRD) Non-Af 51 L, BUN/Creatinine Ratio 8.5 L, Glucose 112 H, Calcium 9.1 01/24/24 06:03: POC Glucose 121 H Microbiology: Microbiology 01/20/24 20:27 Urine, Clean Catch Urine Culture - Final Pseudomonas aeruginosa 01/20/24 22:40 Blood Culture (Wb) - Anticubital Left Blood Culture - Preliminary No growth in 48 hours. 01/21/24 10:00 Mucosa - Nasopharyngeal Respiratory Panel (PCR) - Final 01/20/24 18:42 Mucosa - Nose SARS-CoV-2, Influenza & RSV (PCR) - Final D/C Instructions Discharge Diet: Low fat / Low cholesterol and 1600 Calorie Control Diet Call your doctor if you observe: Fever of 101 or Higher, Shortness of breath, Dizziness, Fainting spells, Swelling in the ankles, Chest pain and Increased palpitations (irregular heartbeat) DC O2, CPAP, BIPAP Needs PSN CPAP & BiPAP: BiPAP & CPAP Settings per PSN Mode BiPAP 01/24/24 03:21 Bipap Delivery Device Face Mask 01/24/24 03:21 BiPAP Inspiratory Pressure 10 01/24/24 03:21 BiPAP Expiratory Pressure 4 01/24/24 03:21 Fraction of Inspired Oxygen ( 2 01/22/24 23:05 FIO2) Total Flow Rate 2 01/24/24 03:21 Additional Home O2 Discharge instructions: No DC home with Oxygen: No Meaningful Use Info Meaningful Use Meaningful Use Diagnoses (Choose all that apply): None applicable Ischemic Stroke Statin Dosing Therapy Reference: STATIN DOSE THERAPY REFERENCE: * Patients > 75 years receive moderate or high dose statin therapy. * Patients 75 years or YOUNGER should receive HIGH intensity statin dose unless contraindicated. You will be required to document reason for non-treatment if statin daily dose does not meet guidelines. HIGH DOSE STATIN THERAPY DAILY Atorvastatin > than or = to 40 mg Rosuvastatin > than or = to 20 mg Amlodipine + Atorvastatin > than or = to 2.5/40 mg Ezetimibe + Simvastatin 10/80 mg Simvastatin 80mg Discharge Plan Admission Admit Date/Time: 01/20/24 21:59 Attending Provider: Mars hCavez Primary Care Provider: Nsareen Sutton Consulting Providers: Renzo Oreilly; Leanne Rosas; Kiran Johnson Discharge Orders/Prescriptions Prescriptions: New ciprofloxacin HCl [Cipro] 500 mg tablet 500 mg PO BID 3 Days Qty: 6 0RF Continued budesonide-formoterol [Symbicort] 160-4.5 mcg/actuation HFA aerosol inhaler 2 puff INHALATION BID ezetimibe [Zetia] 10 mg tablet 10 mg PO QDAY Qty: 30 11RF cyclobenzaprine 5 mg tablet 5 mg PO Q8H atorvastatin 80 mg Tablet 80 mg PO DAILY metoclopramide HCl [Reglan] 10 mg tablet 10 mg PO Q6H PRN (Reason: NAUSEA AND VOMTING ) Qty: 20 0RF Emgality Syringe 120 mg/mL syringe 120 mg subcut Q30D Patient Comments: END OF MONTH trazodone 50 mg tablet 50 - 100 mg PO QHS gabapentin 300 mg capsule 300 mg PO TID naratriptan 2.5 mg tablet 2.5 mg PO BID PRN (Reason: migraines) Rx Instructions: can repeat dose, two hours after first dose taken. do not exceed more than two doses in 24 hours. fluticasone propionate 50 mcg/actuation spray,suspension 2 spray INTRANASAL Q12H Patient Comments: [NO ORIGINAL SIG] tramadol 50 mg tablet 50 mg PO TID levothyroxine 200 mcg tablet 200 mcg PO DAILY valsartan 160 mg tablet 160 mg PO BID citalopram 40 mg tablet 40 mg PO DAILY furosemide 40 mg tablet 40 mg PO DAILY Qty: 30 11RF potassium chloride 10 mEq capsule, extended release 10 meq PO DAILY Qty: 30 11RF isosorbide mononitrate 30 mg tablet extended release 24 hr 30 mg PO DAILY Qty: 30 11RF Referrals / Follow Up: Nasreen Sutton MD [Primary Care Provider] - 02/02/24 11:30 am Disposition Disposition (needs filled in before D/C Order can be placed): Home, Self Care Charges/Coding Visit Charges Inpatient E&M: 52683 Disch Hosp >30min
== END 2024-01-24 11:26 | disposition home or self-care (01) | DRG 690 ==
LOC: ED 22:34 → MS3 22:52
PROVIDERS: Internal Medicine; Admitting Provider Internal Medicine; Emergency Provider Emergency Medicine; PCP Family Medicine; Referring Provider Emergency Medicine; Visit Provider Family Medicine
DX: N30.00 Acute cystitis without hematuria (principal); Z68.43 Body mass index [BMI] 50.0-59.9, adult; B96.5 Pseudomonas (aeruginosa) (mallei) (pseudomallei) as the cause of diseases classified elsewhere; E11.22 Type 2 diabetes mellitus with diabetic chronic kidney disease; J44.9 Chronic obstructive pulmonary disease, unspecified; N18.31 Chronic kidney disease, stage 3a; E03.9 Hypothyroidism, unspecified; I12.9 Hypertensive chronic kidney disease with stage 1 through stage 4 chronic kidney disease, or unspecified chronic kidney disease; F32.A Depression, unspecified; E11.42 Type 2 diabetes mellitus with diabetic polyneuropathy; E78.00 Pure hypercholesterolemia, unspecified; I25.10 Atherosclerotic heart disease of native coronary artery without angina pectoris; G47.33 Obstructive sleep apnea (adult) (pediatric); E66.01 Morbid (severe) obesity due to excess calories; S05.01XA Injury of conjunctiva and corneal abrasion without foreign body, right eye, initial encounter; F41.9 Anxiety disorder, unspecified; X58.XXXA Exposure to other specified factors, initial encounter; K90.0 Celiac disease; Z91.148 Patient's other noncompliance with medication regimen for other reason; Z79.51 Long term (current) use of inhaled steroids; Z79.890 Hormone replacement therapy; Z79.899 Other long term (current) drug therapy; Z86.73 Personal history of transient ischemic attack (TIA), and cerebral infarction without residual deficits
CPT/HCPCS: 36415; 71046; 80048; 80053; 81001; 82607; 82962; 83036; 83605; 83690; 84443; 84484; 85025; 87040; 87077; 87086; 87088; 87184; 87186; 87631; 87633; 93005; 94002; 94003; 94640; 94660; 94668; 97162; 97166; 97530; 97535; 99285; J7040; A4216; J2405

== ENCOUNTER 2024-01-30 11:17 | Inpatient (IN) | payer MEDICARE, MEDICAID, SELFPAY ==
[2024-01-30 11:18] VITALS: BP 179/89; PULSE 89; RESP 18; TEMP 36.9; O2SAT 97; BMI 51.5
[2024-01-30 11:21] VITALS: BMI 51.7
--- NOTE | 2024-01-30 12:50 | EDS_ITS ---
HPI History of Present Illness Chief Complaint: Sore Throat Informant: patient Narrative Narrative: 53-year-old female well-known to the emergency department due to frequent visits with chronic medical problems like COPD obstructive sleep apnea diabetes these presenting to the emergency department with a chief complaint of feeling poorly. Patient states that since returning home from the hospital where she was admitted for UTI the patient has had intermittent myoclonic jerks of her extremity that she cannot explain. She notes 2 days of sore throat and generalized fatigue. She states that she does not recall what antibiotic she was on. Initially triage was told that the patient cannot walk or speak. Patient herself tells me that she does not feel like she is speaking normally stating that she cannot remember how to spell what she is saying. In review of the chart I see the patient was diagnosed with a Pseudomonas UTI was discharged home on Cipro which again she states she is not currently taking. She has a history of hypothyroidism with noncompliance with her levothyroxine. [facility] Medical History MARYANA (acute kidney injury) Walker as ambulation aid Ambulates with cane Low iron History of renal disease High cholesterol DVT (deep venous thrombosis) PONV (postoperative nausea and vomiting) Stroke/cerebrovascular accident Sleep apnea [facility] follow-up encounter Scalp hematoma Pulmonary embolism Post-menopausal Thyroid disease Injury of head and neck Dietary restriction Difficulty swallowing BiPAP (biphasic positive airway pressure) dependence COPD (chronic obstructive pulmonary disease) Shortness of breath on exertion Leg cramps History of pain when walking History of edema History of echocardiogram History of stress test Syncope Abnormal glucose Noncompliance DAVY treated with BiPAP UTI (urinary tract infection) Vitamin D deficiency Restless leg syndrome Vitamin B12 deficiency Iron deficiency anemia History of chronic back pain Wears glasses Arthritis Non-smoker Hydronephrosis Depression Anemia Migraine headache Chronic kidney disease Diabetes mellitus Gout Celiac disease Hyperlipidemia GERD (gastroesophageal reflux disease) Dyspnea on exertion Chest pain Hypersomnia Cardiac murmur Microcytic anemia Hypertension Morbid obesity with BMI of 40.0-44.9, adult Asthma Hypothyroidism Anxiety Home Medications ?Medication ?Instructions ?Recorded ?Last Taken ?Type citalopram 40 mg tablet 40 mg PO DAILY DEPRESSION/ANXIETY 07/27/19 09/30/23 History budesonide-formoterol HFA 160 2 puff inhalation BID COPD 04/02/20 09/30/23 History mcg-4.5 mcg/actuation aerosol inhaler (Symbicort) metoclopramide HCl 10 mg tablet 10 mg PO Q6H PRN NAUSEA AND 01/07/23 Unknown Rx (Reglan) VOMTING #20 tabs atorvastatin 80 mg tablet 80 mg PO DAILY CHOLESTEROL 02/10/23 09/30/23 History cyclobenzaprine 5 mg tablet 5 mg PO Q8H MUSCLE SPASMS 02/10/23 09/30/23 History galcanezumab-gnlm 120 mg/mL 120 mg subcut Q30D migraines 07/29/23 Unknown History subcutaneous syringe (Emgality) trazodone 50 mg tablet 50 - 100 mg PO QHS SLEEP 07/29/23 09/30/23 History gabapentin 300 mg capsule 300 mg PO TID pain 09/30/23 09/30/23 History naratriptan 2.5 mg tablet 2.5 mg PO BID PRN migraines 10/01/23 Unknown History furosemide 40 mg tablet 40 mg PO DAILY #30 tabs 10/18/23 Unknown Rx isosorbide mononitrate 30 mg 30 mg PO DAILY HEART #30 tabs 10/18/23 Unknown Rx tablet,extended release 24 hr potassium chloride 10 mEq 10 meq PO DAILY SUPPLEMENT #30 10/18/23 Unknown Rx capsule,extended release caps ezetimibe 10 mg tablet (Zetia) 10 mg PO QDAY #30 tabs 11/28/23 Unknown Rx fluticasone propionate 50 2 spray intranasal Q12H 01/20/24 Unknown History mcg/actuation nasal spray,suspension levothyroxine 200 mcg tablet 200 mcg PO DAILY 01/20/24 Unknown History tramadol 50 mg tablet 50 mg PO TID 01/20/24 Unknown History valsartan 160 mg tablet 160 mg PO BID 01/20/24 Unknown History ciprofloxacin HCl 500 mg tablet 500 mg PO BID 3 days #6 tabs 01/24/24 Unknown Rx (Cipro) Allergy/AdvReac Type Severity Reaction Status Date / Time hydrochlorothiazide AdvReac Intermediate Contributes Verified 01/30/24 11:21 to gout naproxen (From Naprosyn) AdvReac Intermediate Nausea Verified 01/30/24 11:21 aspirin AdvReac Nausea Verified 01/30/24 11:21 Family History Father , Age 72 Hypertension Mother CAD (coronary artery disease) Myocardial infarction, Onset Age: 55 Hypertension Sister CAD (coronary artery disease) Brother Cancer Surgical History History of cardiac catheterization History of History of carpal tunnel surgery of right wrist History of carpal tunnel surgery of left wrist Hx of cystoscopy History of left heart catheterization (11/11/20) history of uterine ablation Social History household members: none housing: apartment Smoking Status: Never smoker alcohol intake: never substance use type: does not use caffeine: No ROS ROS ED ROS Narrative Generalized fatigue Constitutional Constitutional ED: Denies chills or weight loss Eyes Eyes: Denies change in vision or diplopia ENT ENT ED: Reports sore throat; Denies ear pain or rhinorrhea Cardiovascular Cardiovascular: Denies chest pain, orthopnea, palpitations or racing heartbeat Respiratory/Chest Respiratory/Chest: Denies cough, dyspnea or orthopnea Gastrointestinal Gastrointestinal: Denies abdominal pain, diarrhea, nausea or vomiting Genitourinary Genitourinary ED: Denies dysuria, hematuria or urinary frequency Musculoskeletal Musculoskeletal: Reports other; Denies arthralgias or myalgias Integumentary Denies abscess or rash Neurologic Neurologic: Reports other Details: Myoclonic jerks ; Denies headache(s) or weakness Psychiatric Psychiatric: Denies anxiety, depression, suicidal ideation or suicidal thoughts Endocrine Endocrinology: Denies polydipsia, polyphagia or polyuria Allergic/Immunologic Allergic/Immunologic ED: Denies mouth swelling, tongue swelling or urticaria EXAM Physical Exam Const Vital Signs: 01/30/24 11:18 01/30/24 15:17 Temperature 98.4 F Temperature Source Oral Pulse Rate 89 81 Respiratory Rate 18 19 H Blood Pressure 179/89 H 156/87 H Blood Pressure Mean 119 110 Pulse Ox 97 Oxygen Delivery Method Room Air Positive well nourished, well developed and obese General Appearance ED: well developed and NAD Nutritional Appearance: obese HEENT Reports normocephalic, head/scalp atraumatic and moist mucous membranes Eyes PERRL and EOMs intact bilaterally Neck no lymphadenopathy, supple and no JVD Resp normal respiratory effort and clear to auscultation bilaterally Cardio regular rate, regular rhythm and no murmurs GI normal to inspection, nondistended, normoactive bowel sounds and non-tender Palpation: soft Back/Spine no CVA tenderness and normal ROM Extremity normal to inspection General Extremety ED: Negative for edema General Extremity: Negative for edema Neuro oriented x3 and CN's II-XII intact bilaterally Neuro Narrative: I do not appreciate any speech abnormality or difficulty finding words. I do not appreciate any myoclonic jerks while in the room. Sensorium / Orientation: alert Motor Exam: strength 5/5 throughout Psych mental status grossly normal Mood & Affect: Negative for depressed or tearful Skin no rashes or lesions noted and no wounds MDM MDM MDM Narrative Medical decision making narrative: Differential diagnosis includes but not limited to electrolyte abnormality UTI sepsis hypothyroidism renal dysfunction Patient's white count elevated 15.1 hemoglobin 10.3 platelet count 339. Creatin ine 3.52 with a BUN of 20 sodium 135 urinalysis with 10-25 squamous cells 1+ bacteria but no overt infection. CT of the abdomen pelvis was obtained this does not show obvious findings to explain the patient's elevated creatinine. It is of substantially elevated off of baseline. Patient will receive IV fluids and I will speak with the hospitalist regarding admission History & Record Review Discussion w/independent historian: Patient Additional record(s) reviewed:: Prior inpatient record, Prior ED visit and Prior labs Lab Data Attestation: I reviewed the patient's lab results. Labs: Laboratory Results - last 24 hr 01/30/24 01/30/24 14:25 14:28 WBC 15.1 H RBC 3.69 L Hgb 10.3 L Hct 34.9 L MCV 94.6 MCH 27.9 MCHC 29.5 L RDW Std Deviation 68.0 H RDW Coeff of Alfredo 19.7 H Plt Count 339 MPV 9.6 Immature Gran % (Auto) 1.200 H Neut % (Auto) 70.9 H Lymph % (Auto) 15.3 L [place] % (Auto) 7.3 Eos % (Auto) 4.8 Baso % (Auto) 0.5 Absolute Neuts (auto) 10.7 H Absolute Lymphs (auto) 2.30 Nucleated RBC % 0 Anisocytosis 1+ Sodium 135 L Potassium 4.2 Chloride 105 Carbon Dioxide 24.0 Anion Gap 6 BUN 20 H Creatinine 3.52 H Estim Creat Clear Calc 25.46 Est GFR (MDRD) Af Amer 17 L Est GFR (MDRD) Non-Af 14 L BUN/Creatinine Ratio 5.7 L Glucose 108 H Calcium 9.3 Urine Color Yellow Urine Clarity Sl. Cloudy Urine pH 5.0 Ur Specific [place] 1.020 Urine Protein 30 H Urine Glucose (UA) Normal Urine Ketones Negative Urine Occult Blood 10 H Urine Nitrite Negative Urine Bilirubin Negative Urine Urobilinogen Normal Ur Leukocyte Esterase 100 H Urine RBC 0-5 SEEN Urine WBC 0-5 SEEN Ur Squamous Epith Cells 10-25 SEEN Urine Bacteria 1+ Hyaline Casts 0-5 SEEN Urine Mucus 0 SEEN Radiography Diagnostic Testing: Clinical Impression(s) from Imaging Studies Abdomen/Pelvis CT 01/30/24 14:56 IMPRESSION: Questionable sludge or small gallstones along the dependent portion of the gallbladder lumen. Stable small bilateral parapelvic renal cysts. Fatty infiltration of the liver. Electronically Signed: Seun Vieira MD at 15:22 EST , Management Discussion w/another healthcare provider: Hospitalist Discharge Plan Dx/Rx/DC Orders Clinical Impression: MARYANA (acute kidney injury) Disposition Disposition: Acute Care Hospital [facility]
[2024-01-30 14:34] LABS: Absolute Neutrophil Count 10.7 X10^3/uL (2.0-7.7); Basophil# 0.08 X10^3/uL; Basophil% 0.5 % (0-1); Eosinophil# 0.72 X10^3/uL; Eosinophils% 4.8 % (0-5); Hematocrit 34.9 % (37-47); Hemoglobin 10.3 g/dL (12.0-15.0); Lymphocyte % 15.3 % (19-41); Mean Corp Hgb Conc 29.5 g/dL (32-36); Mean Corpuscular Hgb 27.9 pg (27.0-32.0); Mean Corpuscular Volume 94.6 fL (81-99); Mean Platelet Vol. 9.6 fl (6.2-12.0); Monocyte% 7.3 % (0-10); NRBC Flagged by Analyzer 0 % (0-5); Neutrophil # 10.67 X10^3/uL (2.7-7.7); Neutrophil % 70.9 % (47-70); POSITIVE MORPHOLOGY YES; Platelet Count 339 K/mm3 (150-450); RBC Distribution Width CV 19.7 % (11.6-14.6); Red Blood Count 3.69 M/mm3 (4.2-5.4); White Blood Count 15.1 K/mm3 (4.4-11.0)
[2024-01-30 14:34] LABS: Mucous, Urine 0 SEEN /hpf (<or=2+)
[2024-01-30 14:35] LABS: Differential Indicated SCAN CRITERIA MET
[2024-01-30 14:43] LABS: Color, Urine Yellow (Yellow); Glucose, Dipstick Normal (Normal); Ketone-Dipstick Negative (Negative); Leukocyte Esterase-Dipstick 100 /ul (Negative); Nitrite-Dipstick Negative (Negative); Occult Blood-Urine 10 /ul (Negative); Protein-Dipstick 30 mg/dl (Negative); Urine Bilirubin Dipstick Negative (Negative); Urine Clarity Sl. Cloudy (Clear); Urine Urobilinogen Normal (Normal)
[2024-01-30 14:51] LABS: Anion Gap 6 (5-15); BUN 20 mg/dL (7-18); BUN/Creat Ratio 5.7 RATIO (10-20); Calcium,Total 9.3 mg/dL (8.5-10.1); Chloride 105 mmol/L (98-107); Creatinine, Serum 3.52 mg/dL (0.55-1.02); EST Glomerular Filtration Rate 14 mL/min (>60); Est Glom Filt Rate - Afr Amer 17 mL/min (>60); Estimated Creatinine Clearance 25.46 ml/min; Glucose 108 mg/dL (74-106); Potassium 4.2 mmol/L (3.5-5.1); Sodium Level 135 mmol/L (136-145)
[2024-01-30 14:56] LABS: Red Blood Cells-Urine 0-5 SEEN /hpf (0-5); Squamous Epithelial Cells - UA 10-25 SEEN /hpf (5-10); White Blood Cells 0-5 SEEN /hpf (0-5)
--- NOTE | 2024-01-30 14:56 | CT_ITS ---
STUDY: CT ABDOMEN AND PELVIS WITHOUT CONTRAST REASON FOR EXAM: Female, 53 years old. Acute renal failure RADIATION DOSAGE (If Supplied By Facility): CTDIvol = ( 28.09 ) mGy, DLP = ( 1397.68 ) mGycm TECHNIQUE: Transaxial images were obtained from the dome of the diaphragm to the symphysis pubis without oral contrast, and without intravenous contrast. Sagittal and coronal images were reconstructed. Individualized dose optimization techniques were used for this CT. COMPARISON: Comparison is made with prior study dated August 12, 2023. FINDINGS: The visualized lung bases are unremarkable. Coronary artery calcification. There is decreased attenuation of the liver consistent with steatosis. Questionable sludge or tiny gallstones along the dependent portion of the gallbladder lumen. Normal spleen. Normal pancreas. Normal bilateral adrenal glands. Normal right kidney. Normal left kidney. Stable small bilateral parapelvic renal cysts. Normal visualized stomach. Normal small intestine. Normal colon. The appendix is visualized and appears normal. There is scattered atherosclerotic calcification of the abdominal aorta, without a demonstrated aneurysm. Normal inferior vena cava. Normal retroperitoneum. Normal urinary bladder. Normal abdominal wall. Normal osseous structures. CT/Abdomen/Pelvis without Cont IMPRESSION: Questionable sludge or small gallstones along the dependent portion of the gallbladder lumen. Stable small bilateral parapelvic renal cysts. Fatty infiltration of the liver. Electronically Signed: Seun Vieira MD at 15:22 EST ,
[2024-01-30 14:57] LABS: Bacteria 1+ /hpf (None Seen); Hyaline Cast 0-5 SEEN /lpf (0-5)
[2024-01-30 14:58] LABS: Anisocytosis 1+
[2024-01-30 15:17] VITALS: BP 156/87; PULSE 81; RESP 19
[2024-01-30 16:15] VITALS: BP 152/78; PULSE 82; RESP 18; TEMP 37; O2SAT 97
[2024-01-30] MEDS: 0.9% Normal Saline (1000mL) 1,000 ML 200 ML IV (16:18)
[2024-01-30 16:50] LABS: Urine Sodium 44 mmol/L (Not Establ.)
--- NOTE | 2024-01-30 17:14 | PCM.HP.STD ---
HPI - General General Date of Admission: 01/30/24 Date of Service: 01/30/24 Chief Complaint: Generalized weakness HPI Narrative COURTNEY CARMEN, is a 53-year-old female history of COPD, recent Pseudomonas UTI, hypothyroidism, diabetes, hypertension, depression, migraines, nonobstructive coronary artery disease, DAVY, morbid obesity who presented [facility] ED 01/30/2024 due to some jerking movements and feeling just generally weak and unwell. In the ED she had white blood cell count of 15 and a creatinine of 3.52 up from 1.17 on 01/24/2024 UA appeared contaminant with 10-25 squamous epithelial cells. Given patient's renal failure hospitalist contacted for admission. Patient evaluated bedside and reports for the past week she has been progressively weaker she has been having odd jerking motions especially of her upper extremities, no worsening of her breathing, eating and drinking okay and denies any decrease or changes in urination. Has a bit of a headache, no fevers or chills, no abdominal pain. Denies any other new or focal complaints at time of exam [facility] Medical History MARYANA (acute kidney injury) Walker as ambulation aid Ambulates with cane Low iron History of renal disease High cholesterol DVT (deep venous thrombosis) PONV (postoperative nausea and vomiting) Stroke/cerebrovascular accident Sleep apnea Fall Cardiology follow-up encounter Scalp hematoma Pulmonary embolism Post-menopausal Thyroid disease Injury of head and neck Dietary restriction Difficulty swallowing BiPAP (biphasic positive airway pressure) dependence COPD (chronic obstructive pulmonary disease) Shortness of breath on exertion Leg cramps History of pain when walking History of edema History of echocardiogram History of stress test Syncope Abnormal glucose Noncompliance DAVY treated with BiPAP UTI (urinary tract infection) Vitamin D deficiency Restless leg syndrome Vitamin B12 deficiency Iron deficiency anemia History of chronic back pain Wears glasses Arthritis Non-smoker Hydronephrosis Depression Anemia Migraine headache Chronic kidney disease Diabetes mellitus Gout Celiac disease Hyperlipidemia GERD (gastroesophageal reflux disease) Dyspnea on exertion Chest pain Hypersomnia Cardiac murmur Microcytic anemia Hypertension Morbid obesity with BMI of 40.0-44.9, adult Asthma Hypothyroidism Anxiety Home Medications ?Medication ?Instructions ?Recorded ?Last Taken ?Type citalopram 40 mg tablet 40 mg PO DAILY DEPRESSION/ANXIETY 07/27/19 09/30/23 History budesonide-formoterol HFA 160 2 puff inhalation BID COPD 04/02/20 09/30/23 History mcg-4.5 mcg/actuation aerosol inhaler (Symbicort) metoclopramide HCl 10 mg tablet 10 mg PO Q6H PRN NAUSEA AND 01/07/23 Unknown Rx (Reglan) VOMTING #20 tabs atorvastatin 80 mg tablet 80 mg PO DAILY CHOLESTEROL 02/10/23 09/30/23 History cyclobenzaprine 5 mg tablet 5 mg PO Q8H MUSCLE SPASMS 02/10/23 09/30/23 History galcanezumab-gnlm 120 mg/mL 120 mg subcut Q30D migraines 07/29/23 Unknown History subcutaneous syringe (Emgality) trazodone 50 mg tablet 50 - 100 mg PO QHS SLEEP 07/29/23 09/30/23 History gabapentin 300 mg capsule 300 mg PO TID pain 09/30/23 09/30/23 History naratriptan 2.5 mg tablet 2.5 mg PO BID PRN migraines 10/01/23 Unknown History furosemide 40 mg tablet 40 mg PO DAILY water pill #30 tabs 10/18/23 Unknown Rx isosorbide mononitrate 30 mg 30 mg PO DAILY HEART #30 tabs 10/18/23 Unknown Rx tablet,extended release 24 hr potassium chloride 10 mEq 10 meq PO DAILY SUPPLEMENT #30 10/18/23 Unknown Rx capsule,extended release caps ezetimibe 10 mg tablet (Zetia) 10 mg PO QDAY cholesterol #30 tabs 11/28/23 Unknown Rx fluticasone propionate 50 2 spray intranasal Q12H allergies 01/20/24 Unknown History mcg/actuation nasal spray,suspension levothyroxine 200 mcg tablet 200 mcg PO DAILY thyroid 01/20/24 Unknown History tramadol 50 mg tablet 50 mg PO TID pain 01/20/24 Unknown History valsartan 160 mg tablet 160 mg PO BID blood pressure 01/20/24 Unknown History Allergy/AdvReac Type Severity Reaction Status Date / Time hydrochlorothiazide AdvReac Intermediate Contributes Verified 01/30/24 11:21 to gout naproxen (From Naprosyn) AdvReac Intermediate Nausea Verified 01/30/24 11:21 aspirin AdvReac Nausea Verified 01/30/24 11:21 Family History Father , Age 72 Hypertension Mother CAD (coronary artery disease) Myocardial infarction, Onset Age: 55 Hypertension Sister CAD (coronary artery disease) Brother Cancer Surgical History History of cardiac catheterization History of History of carpal tunnel surgery of right wrist History of carpal tunnel surgery of left wrist Hx of cystoscopy History of left heart catheterization (11/11/20) history of uterine ablation Social History household members: none housing: apartment Smoking Status: Never smoker alcohol intake: never substance use type: does not use caffeine: No ROS ROS Narrative General: Denies fever/chills HENT: Does have some headache, denies stuffy nose, denies sore throat EYES: Denies changes in vision Resp: Denies cough, some chronic shortness of breath Cardiac: Denies chest pain GI: Denies abdominal pain, denies changes in bowel, denies nausea/vomiting : Denies changes in urination Extremity: Denies any new swelling MSK: Somewhat generally weak Neuro: Denies any numbness/tingling, some myoclonic jerking movements Heme: Has some bruising on arms from recent hospitalization due to lab draws Skin: Denies rashes Psychiatric: No complaints voiced Vital Signs Vital Signs Vital Signs: 01/30/24 11:18 01/30/24 15:17 01/30/24 16:15 Temperature 98.4 F 98.6 F Temperature Source Oral Pulse Rate 89 81 82 Respiratory Rate 18 19 H 18 Blood Pressure 179/89 H 156/87 H 152/78 H Blood Pressure Mean 119 110 102 Pulse Ox 97 97 Oxygen Delivery Method Room Air Weight Weight: 136.7 kg Body Mass Index (BMI) 51.7 Physical Exam Narrative General: Alert, oriented, no apparent distress HEENT: Atraumatic, normocephalic Eyes: Anicteric, normal conjunctiva, extraocular movements grossly intact Neck: Supple Respiratory: Somewhat diminished bilaterally but in part due to body habitus, normal respiratory effort Cardiovascular: Regular rate and rhythm GI: Soft, nontender, nondistended Extremities: No edema Musculoskeletal: Moving all extremities Neuro: No overt focal neurological deficits, does have some occasional myoclonic jerking movements Skin: No rashes appreciated, does have some scattered resolving bruises on arms from lab draws last hospitalization Psych: Cooperative Results Lab / Micro Data 01/30/24 14:25 01/30/24 14:25 Labs: Laboratory Results - last 24 hr 01/30/24 14:25: WBC 15.1 H, RBC 3.69 L, Hgb 10.3 L, Hct 34.9 L, MCV 94.6, MCH 27.9, MCHC 29.5 L, RDW Std Deviation 68.0 H, RDW Coeff of Alfredo 19.7 H, Plt Count 339, MPV 9.6, Immature Gran % (Auto) 1.200 H, Neut % (Auto) 70.9 H, Lymph % (Auto) 15.3 L, [place] % (Auto) 7.3, Eos % (Auto) 4.8, Baso % (Auto) 0.5, Absolute Neuts (auto) 10.7 H, Absolute Lymphs (auto) 2.30, Nucleated RBC % 0, Anisocytosis 1+, Sodium 135 L, Potassium 4.2, Chloride 105, Carbon Dioxide 24.0, Anion Gap 6, BUN 20 H, Creatinine 3.52 H, Estim Creat Clear Calc 25.46, Est GFR (MDRD) Af Amer 17 L, Est GFR (MDRD) Non-Af 14 L, BUN/Creatinine Ratio 5.7 L, Glucose 108 H, Calcium 9.3, TSH 56.100 H 01/30/24 14:28: Urine Color Yellow, Urine Clarity Sl. Cloudy, Urine pH 5.0, Ur Specific [place] 1.020, Urine Protein 30 H, Urine Glucose (UA) Normal, Urine Ketones Negative, Urine Occult Blood 10 H, Urine Nitrite Negative, Urine Bilirubin Negative, Urine Urobilinogen Normal, Ur Leukocyte Esterase 100 H, Urine RBC 0-5 SEEN, Urine WBC 0-5 SEEN, Ur Squamous Epith Cells 10-25 SEEN, Urine Bacteria 1+, Hyaline Casts 0-5 SEEN, Urine Mucus 0 SEEN, Ur Random Sodium 44, Urine Creatinine 146.00 Micro: Microbiology 01/30/24 12:45 Mucosa - Nose SARS-CoV-2, Influenza & RSV (PCR) - Final Imaging Radiology Impression Abdomen/Pelvis CT 01/30/24 14:56 IMPRESSION: Questionable sludge or small gallstones along the dependent portion of the gallbladder lumen. Stable small bilateral parapelvic renal cysts. Fatty infiltration of the liver. Electronically Signed: Seun Vieira MD at 15:22 EST , Assessment & Plan Assessment/Plan (1) Kidney failure: PLAN: Plan # Acute renal failure -Patient's creatinine on discharge 01/24/2024 was 1.17, today is 3.52 -Will send urine studies -CT abdomen unrevealing for any obstruction or other etiology -IV fluids -Hold home diuretics and ARB -Will consult nephrology -UA does not appear overtly infected but did have recent Pseudomonas UTI, check urine culture -Hold gabapentin as this is renally cleared # Leukocytosis -Unclear etiology -Patient has no focal complaints aside from the jerking which is likely due to elevated BUN and the generalized weakness -Will obtain urine and blood cultures, given patient afebrile we will hold off on empiric antibiotics unless any vital/labs/focal complaints revealing #Hypothyroidism -Continue Synthroid -Had recent significant elevation in TSH due to noncompliance # History of COPD -Continue home inhalers #DAVY -Continue home NIPPV if applicable #Type 2 diabetes mellitus -Glucose checks and sliding scale insulin #Hypertension -Hold ARB, patient initially hypertensive but blood pressure down trended for unclear reasons so hold other antihypertensives as well #Morbid obesity -BMI documented as 51.7 kg/m? at time of admission -Complicates treatment, prognosis, outcomes -Recommend weight loss and lifestyle changes #Depression/anxiety -Continue home medications #DVT ppx: Heparin subcu Leanne Rosas MD Charges/Coding Visit Charges Inpatient E&M: 94089 Init Hosp L2
--- NOTE | 2024-01-30 18:24 | CM.ED ---
Social Work Reason for visit: High number of ER visits Patient was seen today due to her high number of ER visits, patient has been in the ER 39 times since February 2023.? This SW met with patient to determine what steps she had taken to follow up on recommendations from her last visit.? Patient stated she had not followed up on any of the recommendations and does not plan to at this time.? Patient stated that she recently lost her dog and she isn?t feeling like starting anything new.? SW asked if she had gone to her counseling appointment that was made for her, she stated she had not felt like going.? She stated that she does get phone calls from Marichuy, who she believes is a casey saw operator through [place].? This SW encouraged patient again to follow up with counseling and participate in programming outside of her home. ?Education provided regarding ways to improve her physical and mental health and decreasing her need for ER visits. ???Information given for [facility] including their hours and the phone number for transportation, phone number for [facility], and the Where to go, When to go brochure.?? Nicolette Hall, COMMUNITY RELATIONS ASSISTANT, PUMPER HAND
[2024-01-30 18:35] VITALS: BMI 52.7
[2024-01-30 18:45] VITALS: BP 80/57; PULSE 95; RESP 18; TEMP 36.5; O2SAT 95
--- NOTE | 2024-01-30 21:05 | PCM.HOSP.N ---
Hospitalist Note Patient initially hypertensive, when she arrived on the floor blood pressure documented 80/57, went to bedside, patient resting comfortably and easily woken up and is awake and alert and answering questions, blood pressure cuff readjusted and blood pressure recycled, blood pressure was 120/81 with a heart rate of 92, patient with no new complaints, reports she feels similar to how she did earlier, asked if head of bed could be raised slightly and this was done. No further questions or needs at this time
[2024-01-30] MEDS: traZODone 50 MG Tablet PO (23:01)
[2024-01-31] MEDS: 0.9% Normal Saline (1000mL) 1,000 ML 75 ML IV ×2 (00:25→14:35)
[2024-01-31] MEDS: Heparin Injection (Vial) 5,000 UNIT/ML VIAL 5000 UNIT SC ×4 (00:26→21:56)
[2024-01-31] MEDS: Insulin Lispro 100 UNIT/ML INSULN.PEN SC (00:26)
[2024-01-31 00:54] LABS: Bedside Glucose 175 mg/dL (74-106)
[2024-01-31 04:03] VITALS: BP 95/59; PULSE 86; RESP 16; TEMP 36.5; O2SAT 95
[2024-01-31 05:30] VITALS: BMI 53.6
[2024-01-31 06:29] LABS: Urine Chloride 42 mmol/L (Not Establ.); Urine Sodium 57 mmol/L (Not Establ.)
[2024-01-31 06:38] LABS: Urea Nitrogen, Urine 304 mg/dL (NO RANGE EST.)
[2024-01-31] MEDS: Levothyroxine 100 MCG Tablet 200 MCG PO (06:38)
[2024-01-31 06:45] LABS: Microalbumin,Random Urine 8.5 mg/L (NO RANGE EST.)
[2024-01-31 07:07] LABS: Absolute Lymphocyte Count 2.22 X10^3/uL (0.83-4.51); Absolute Neutrophil Count 8.1 X10^3/uL (2.0-7.7); Basophil# 0.08 X10^3/uL; Basophil% 0.7 % (0-1); Eosinophil# 0.69 X10^3/uL; Eosinophils% 5.6 % (0-5); Hematocrit 32.6 % (37-47); Hemoglobin 9.9 g/dL (12.0-15.0); Lymphocyte # 2.22 X10^3/ul (0.83-4.51); Lymphocyte % 18.2 % (19-41); Mean Corp Hgb Conc 30.4 g/dL (32-36); Mean Corpuscular Hgb 28.4 pg (27.0-32.0); Mean Corpuscular Volume 93.7 fL (81-99); Mean Platelet Vol. 10.3 fl (6.2-12.0); Monocyte% 8.2 % (0-10); NRBC Flagged by Analyzer 0 % (0-5); Neutrophil # 8.13 X10^3/uL (2.7-7.7); Neutrophil % 66.5 % (47-70); POSITIVE COUNT YES; POSITIVE MORPHOLOGY YES; RBC Distribution Width CV 19.6 % (11.6-14.6); RBC Distribution Width SD 66.4 fl (35.1-43.9); Red Blood Count 3.48 M/mm3 (4.2-5.4); White Blood Count 12.2 K/mm3 (4.4-11.0)
[2024-01-31] MEDS: Albuterol 2.5 MG/3 ML VIAL.NEB. INHALATION ×3 (07:12→19:32)
[2024-01-31] MEDS: Budesonide Respules 0.5 MG/2 ML AMPUL.NEB. INHALATION ×2 (07:12→19:32)
[2024-01-31 07:13] VITALS: PULSE 90; RESP 20; O2SAT 94
[2024-01-31 07:18] LABS: Bedside Glucose 113 mg/dL (74-106)
[2024-01-31 08:00] VITALS: BP 114/79; PULSE 96; RESP 18; TEMP 36.4; O2SAT 92
[2024-01-31 08:06] LABS: ALB/GLOB Ratio 0.7 RATIO (0.9-2.4); AST(SGOT) 34 U/L (15-37); Alanine Aminotransfer ALT/SGPT 23 U/L (13-56); Albumin, Serum 2.8 g/dL (3.2-5.0); Alkaline Phosphatase 140 U/L (45-117); Anion Gap 6 (5-15); BUN 17 mg/dL (7-18); BUN/Creat Ratio 7.7 RATIO (10-20); Calcium,Total 9.1 mg/dL (8.5-10.1); Chloride 109 mmol/L (98-107); Creatinine, Serum 2.22 mg/dL (0.55-1.02); EST Glomerular Filtration Rate 25 mL/min (>60); Est Glom Filt Rate - Afr Amer 30 mL/min (>60); Estimated Creatinine Clearance 41.39 ml/min; Globulin 4.2 g/dL (2.2-4.2); Glucose 120 mg/dL (74-106); Magnesium 2.2 mg/dL (1.6-2.6); Potassium 4.3 mmol/L (3.5-5.1); Sodium Level 139 mmol/L (136-145)
[2024-01-31 08:46] LABS: Anisocytosis 1+; Differential Indicated SCAN CRITERIA MET; Platelet Estimate ADEQUATE (ADEQ)
[2024-01-31] MEDS: Ezetimibe 10 MG Tablet PO (09:50)
[2024-01-31] MEDS: Fluticasone 0.05% 1 SPRAY NASAL.SRY 2 SPRAY NASAL ×2 (09:51→21:56)
[2024-01-31 09:56] LABS: T3 Total - Triiodothyronine 0.96 ng/mL (0.6-1.81)
[2024-01-31 09:57] LABS: T4 Total, Thyroxin 7.3 ug/dL (4.8-13.9)
[2024-01-31] MEDS: Citalopram 40 MG TABLET PO (11:00)
--- NOTE | 2024-01-31 12:05 | CASEMGMT ---
INEZ SHORE chart review: Patient was admitted 01/19-01/24/24 for UTI and conjunctivitis of the right eye. See INEZ SHORE assessment from 01/21/24. Patient was discharged to home with family support. Patient returned to [facility] ED on 01/30/24 for complaint of sore throat and was admitted for Kidney failure. INEZ SHORE in to discuss readmission and discharge planning. Patient states she was taking medications as prescribed and finished her antibiotic prescription. INEZ SHORE reviewed with patient that she has come to the ED 39 times since the beginning of the year. Patient states that she calls her PCP and they state they can't see her same day so she will come to ED or Urgent Care. Patient states that when she goes to Urgent Care they advise her to go to ED. Patient states that she feels she does not need to follow-[facility] with [facility]. Patient denies needs at discharge. Will monitor for home oxygen and additional resources.
[2024-01-31 12:12] LABS: Bedside Glucose 115 mg/dL (74-106)
[2024-01-31 14:00] VITALS: BP 123/73; PULSE 78; RESP 18; TEMP 36.6; O2SAT 98
[2024-01-31] MEDS: Acetaminophen 325 MG Tablet 650 MG PO (14:14)
--- NOTE | 2024-01-31 14:45 | CON.PCM.RE_ITS ---
Assessment & Plan Assessment/Plan (1) MARYANA (acute kidney injury): PLAN: Baseline creatinine at the time of discharge was 1.1. Came in with a creatinine of 3.5. Initial fractional excretion of sodium was low. Creatinine better. Urine analysis shows leukocytes, recent UTI with Pseudomonas. Expected in view of recent UTI. CT abdomen without any hydronephrosis. Extensive NSAID usage. She says she takes ibuprofen 200 mg 2 to 3 tablets a day. For diffuse arthritis. Already sees pain management. Tylenol does not work. Explained the nephrotoxic potential of long-term NSAID usage. HPI Consult Data Date of Consult: 01/31/24 HPI Narrative Reason for Consultation: MARYANA HPI Narrative: COURTNEY CARMEN, is a 53 F who presents To the hospital with weakness. Nephrology on consultation in view of acute renal failure. She was recently admitted to the hospital with cystitis, Pseudomonas related. Discharged on the . She said she felt okay for about 2 days and started having worsening symptoms again. Creatinine was around 1.1 at the time of discharge. Came back with a creatinine of 3.4. Better today. Denies any urinary complaints such as dysuria, hematuria, fever, chills, flank pain. [facility] Medical History MARYANA (acute kidney injury) Walker as ambulation aid Ambulates with cane Low iron History of renal disease High cholesterol DVT (deep venous thrombosis) PONV (postoperative nausea and vomiting) Stroke/cerebrovascular accident Sleep apnea Fall Cardiology follow-up encounter Scalp hematoma Pulmonary embolism Post-menopausal Thyroid disease Injury of head and neck Dietary restriction Difficulty swallowing BiPAP (biphasic positive airway pressure) dependence COPD (chronic obstructive pulmonary disease) Shortness of breath on exertion Leg cramps History of pain when walking History of edema History of echocardiogram History of stress test Syncope Abnormal glucose Noncompliance DAVY treated with BiPAP UTI (urinary tract infection) Vitamin D deficiency Restless leg syndrome Vitamin B12 deficiency Iron deficiency anemia History of chronic back pain Wears glasses Arthritis Non-smoker Hydronephrosis Depression Anemia Migraine headache Chronic kidney disease Diabetes mellitus Gout Celiac disease Hyperlipidemia GERD (gastroesophageal reflux disease) Dyspnea on exertion Chest pain Hypersomnia Cardiac murmur Microcytic anemia Hypertension Morbid obesity with BMI of 40.0-44.9, adult Asthma Hypothyroidism Anxiety Home Medications ?Medication ?Instructions ?Recorded ?Last Taken ?Type citalopram 40 mg tablet 40 mg PO DAILY DEPRESSION/ANXIETY 07/27/19 09/30/23 History budesonide-formoterol HFA 160 2 puff inhalation BID COPD 04/02/20 09/30/23 History mcg-4.5 mcg/actuation aerosol inhaler (Symbicort) metoclopramide HCl 10 mg tablet 10 mg PO Q6H PRN NAUSEA AND 01/07/23 Unknown Rx (Reglan) VOMTING #20 tabs atorvastatin 80 mg tablet 80 mg PO DAILY CHOLESTEROL 02/10/23 09/30/23 History cyclobenzaprine 5 mg tablet 5 mg PO Q8H MUSCLE SPASMS 02/10/23 09/30/23 History galcanezumab-gnlm 120 mg/mL 120 mg subcut Q30D migraines 07/29/23 Unknown History subcutaneous syringe (Emgality) trazodone 50 mg tablet 50 - 100 mg PO QHS SLEEP 07/29/23 09/30/23 History gabapentin 300 mg capsule 300 mg PO TID pain 09/30/23 09/30/23 History naratriptan 2.5 mg tablet 2.5 mg PO BID PRN migraines 10/01/23 Unknown History furosemide 40 mg tablet 40 mg PO DAILY water pill #30 tabs 10/18/23 Unknown Rx isosorbide mononitrate 30 mg 30 mg PO DAILY HEART #30 tabs 10/18/23 Unknown Rx tablet,extended release 24 hr potassium chloride 10 mEq 10 meq PO DAILY SUPPLEMENT #30 10/18/23 Unknown Rx capsule,extended release caps ezetimibe 10 mg tablet (Zetia) 10 mg PO QDAY cholesterol #30 tabs 11/28/23 Unknown Rx fluticasone propionate 50 2 spray intranasal Q12H allergies 01/20/24 Unknown History mcg/actuation nasal spray,suspension levothyroxine 200 mcg tablet 200 mcg PO DAILY thyroid 01/20/24 Unknown History tramadol 50 mg tablet 50 mg PO TID pain 01/20/24 Unknown History valsartan 160 mg tablet 160 mg PO BID blood pressure 01/20/24 Unknown History Allergy/AdvReac Type Severity Reaction Status Date / Time hydrochlorothiazide AdvReac Intermediate Contributes Verified 01/30/24 11:21 to gout naproxen (From Naprosyn) AdvReac Intermediate Nausea Verified 01/30/24 11:21 aspirin AdvReac Nausea Verified 01/30/24 11:21 Family History Father , Age 72 Hypertension Mother CAD (coronary artery disease) Myocardial infarction, Onset Age: 55 Hypertension Sister CAD (coronary artery disease) Brother Cancer Surgical History History of cardiac catheterization History of History of carpal tunnel surgery of right wrist History of carpal tunnel surgery of left wrist Hx of cystoscopy History of left heart catheterization (11/11/20) history of uterine ablation Social History household members: none housing: apartment Smoking Status: Never smoker alcohol intake: never substance use type: does not use caffeine: No ROS ROS Narrative negative except above Physical Exam Narrative Alert awake oriented x 3 no obvious distress no pallor no icterus no JVD s1s2 no murmurs lungs clear abdomen soft no organomegaly no edema no cyanosis Lab / Micro Data 01/31/24 06:55 01/31/24 06:55 Labs: Laboratory Results - last 24 hr 01/30/24 14:25: Anisocytosis 1+, Sodium 135 L, Potassium 4.2, Chloride 105, Carbon Dioxide 24.0, Anion Gap 6, BUN 20 H, Creatinine 3.52 H, Estim Creat Clear Calc 25.46, Est GFR (MDRD) Af Amer 17 L, Est GFR (MDRD) Non-Af 14 L, B UN/Creatinine Ratio 5.7 L, Glucose 108 H, Calcium 9.3, TSH 56.100 H 01/30/24 14:28: Urine Color Yellow, Urine Clarity Sl. Cloudy, Urine pH 5.0, Ur Specific [place] 1.020, Urine Protein 30 H, Urine Glucose (UA) Normal, Urine Ketones Negative, Urine Occult Blood 10 H, Urine Nitrite Negative, Urine Bilirubin Negative, Urine Urobilinogen Normal, Ur Leukocyte Esterase 100 H, Urine RBC 0-5 SEEN, Urine WBC 0-5 SEEN, Ur Squamous Epith Cells 10-25 SEEN, Urine Bacteria 1+, Hyaline Casts 0-5 SEEN, Urine Mucus 0 SEEN, Ur Random Sodium 44, Urine Creatinine 146.00 01/31/24 00:00: POC Glucose 175 H 01/31/24 06:00: Ur Random Microalbumin 8.5, Ur Random Sodium 57, Urine Creatinine 106.00, Microalb/Creat Ratio 8.0, Urine Potassium 10.0, Urine Chloride 42, Urine Urea Nitrogen 304 01/31/24 06:33: POC Glucose 113 H 01/31/24 06:55: WBC 12.2 H, RBC 3.48 L, Hgb 9.9 L, Hct 32.6 L, MCV 93.7, MCH 28.4, MCHC 30.4 L, RDW Std Deviation 66.4 H, RDW Coeff of Alfredo 19.6 H, Plt Count , MPV 10.3, Immature Gran % (Auto) 0.800, Neut % (Auto) 66.5, Lymph % (Auto) 18.2 L, [place] % (Auto) 8.2, Eos % (Auto) 5.6 H, Baso % (Auto) 0.7, Absolute Neuts (auto) 8.1 H, Absolute Lymphs (auto) 2.22, Nucleated RBC % 0, Platelet Estimate ADEQUATE, Anisocytosis 1+, Sodium 139, Potassium 4.3, Chloride 109 H, Carbon Dioxide 24.0, Anion Gap 6, BUN 17, Creatinine 2.22 H, Estim Creat Clear Calc 41.39, Est GFR (MDRD) Af Amer 30 L, Est GFR (MDRD) Non-Af 25 L, BUN/Creatinine Ratio 7.7 L, Glucose 120 H, Calcium 9.1, Magnesium 2.2, Total Bilirubin 0.30, AST 34, ALT 23, Alkaline Phosphatase 140 H, Total Protein 7.0, Albumin 2.8 L, Globulin 4.2, Albumin/Globulin Ratio 0.7 L, Thyroxine (T4) 7.3, Total T3 0.96 01/31/24 11:51: POC Glucose 115 H Micro: Microbiology 01/30/24 12:45 Mucosa - Nose SARS-CoV-2, Influenza & RSV (PCR) - Final Imaging Radiology Impression Abdomen/Pelvis CT 01/30/24 14:56 IMPRESSION: Questionable sludge or small gallstones along the dependent portion of the gallbladder lumen. Stable small bilateral parapelvic renal cysts. Fatty infiltration of the liver. Electronically Signed: Seun Vieira MD at 15:22 EST ,
[2024-01-31] MEDS: LORazepam 0.5 MG Tablet PO (16:09)
[2024-01-31 17:17] LABS: Bedside Glucose 112 mg/dL (74-106)
--- NOTE | 2024-01-31 18:29 | PN.HOSP_ITS ---
Reason for Visit Reason for Visit: Diagnoses Acute kidney failure, unspecified (01/30/24) Unspecified kidney failure (01/30/24) Subjective Subjective Patient was seen and examined today, her creatinine is improved with administration of fluids. Patient's T3 and T4 were normal although her TSH is elevated. Objective Data Objective Data Vital Signs: Vital Signs Temp Pulse Resp BP Pulse Ox O2 Del Method 97.8 F 78 18 123/73 H 98 Room Air 01/31/24 14:00 01/31/24 14:00 01/31/24 14:00 01/31/24 14:00 01/31/24 14:00 01/31/24 14:00 Oxygen Delivery Method Room Air Weight: 141.6 kg Body Mass Index (BMI) 53.6 Intake & Output: Intake and Output for Last 24 Hours 01/29/24 01/30/24 01/31/24 23:59 23:59 23:59 Intake Total 1000 / 1440 2760 / 2760 Balance 1000 / 1440 2760 / 2760 Lab / Micro Data 01/31/24 06:55 01/31/24 06:55 Labs: Laboratory Results - last 24 hr 01/31/24 00:00: POC Glucose 175 H 01/31/24 06:00: Ur Random Microalbumin 8.5, Ur Random Sodium 57, Urine Creatinine 106.00, Microalb/Creat Ratio 8.0, Urine Potassium 10.0, Urine Chloride 42, Urine Urea Nitrogen 304 01/31/24 06:33: POC Glucose 113 H 01/31/24 06:55: WBC 12.2 H, RBC 3.48 L, Hgb 9.9 L, Hct 32.6 L, MCV 93.7, MCH 28.4, MCHC 30.4 L, RDW Std Deviation 66.4 H, RDW Coeff of Alfredo 19.6 H, Plt Count , MPV 10.3, Immature Gran % (Auto) 0.800, Neut % (Auto) 66.5, Lymph % (Auto) 18.2 L, [place] % (Auto) 8.2, Eos % (Auto) 5.6 H, Baso % (Auto) 0.7, Absolute Neuts (auto) 8.1 H, Absolute Lymphs (auto) 2.22, Nucleated RBC % 0, Platelet Estimate ADEQUATE, Anisocytosis 1+, Sodium 139, Potassium 4.3, Chloride 109 H, Carbon Dioxide 24.0, Anion Gap 6, BUN 17, Creatinine 2.22 H, Estim Creat Clear Calc 41.39, Est GFR (MDRD) Af Amer 30 L, Est GFR (MDRD) Non-Af 25 L, BUN/Creatinine Ratio 7.7 L, Glucose 120 H, Calcium 9.1, Magnesium 2.2, Total Bilirubin 0.30, AST 34, ALT 23, Alkaline Phosphatase 140 H, Total Protein 7.0, Albumin 2.8 L, Globulin 4.2, Albumin/Globulin Ratio 0.7 L, Thyroxine (T4) 7.3, Total T3 0.96 01/31/24 11:51: POC Glucose 115 H 01/31/24 16:56: POC Glucose 112 H Micro: Microbiology 01/30/24 12:45 Mucosa - Nose SARS-CoV-2, Influenza & RSV (PCR) - Final Physical Exam Const alert, oriented x3 and no apparent distress Constitutional Narrative: Patient has class III obesity General Appearance: cooperative, well kempt and well developed Orientation / Consciousness: awake, oriented to person, oriented to place and oriented to time HEENT normocephalic, head/scalp atraumatic and moist oral mucous membranes Eyes PERRL, EOMs intact bilaterally and conjunctivae normal Neck supple, no JVD, thyroid normal and no carotid bruits General: trachea midline Resp normal respiratory effort, no retractions, no use of accessory muscles and clear to auscultation bilaterally Auscultation: Negative for rales, rhonchi or wheezes Cardio regular rate, regular rhythm, S1 normal heart sound, S2 normal heart sound, no murmurs, no rub and no gallops GI normal to inspection, nondistended, normoactive bowel sounds, soft to palpation, non-tender and non-distended Extremity no clubbing, cyanosis or edema Skin no rashes or lesions noted General Skin Exam: no breakdown Neuro oriented x3, CN's II-XII intact bilaterally, no focal motor deficits and no sensory deficits noted Sensorium / Orientation: awake and alert Speech: speech normal Psych affect normal Assessment & Plan Assessment/Plan (1) MARYANA (acute kidney injury): PLAN: Plan 1. Acute kidney injury secondary to diuretic usage-patient's Lasix has been stopped, I will administer additional fluid and repeat patient's lab in the morning #2 class III obesity-complicates care, management, recovery, and prognosis #3 hypothyroidism-patient currently is on Synthroid #4 chronic obstructive pulmonary disease-patient will remain on aerosol treatments #5 hyperlipidemia-patient is on Lipitor and Zetia #6 type 2 diabetes-patient is on fingerstick blood sugars with sliding scale insulin, patient is diet controlled as an outpatient Total clinical time spent by myself addressing the patient's medical issues, reviewing all of her data, and collaborating with patient's care team: 35 minutes Charges/Coding Visit Charges Inpatient E&M: 39423 Subs Hosp L2
[2024-01-31 19:32] VITALS: PULSE 94; RESP 18
[2024-01-31 20:00] VITALS: BP 141/82; PULSE 98; RESP 16; TEMP 36.4; O2SAT 99
[2024-01-31] MEDS: Atorvastatin Calcium 80 MG Tablet PO (21:54)
[2024-01-31] MEDS: traZODone 50 MG Tablet PO (21:54)
[2024-02-01] MEDS: LORazepam 0.5 MG Tablet PO ×2 (00:03→08:00)
[2024-02-01 01:03] LABS: Bedside Glucose 116 mg/dL (74-106)
[2024-02-01 03:00] VITALS: BP 111/98; PULSE 96; RESP 18; TEMP 36.7; O2SAT 97
[2024-02-01] MEDS: 0.9% Normal Saline (1000mL) 1,000 ML 75 ML IV (04:00)
[2024-02-01] MEDS: Acetaminophen 325 MG Tablet 650 MG PO (05:00)
[2024-02-01] MEDS: Levothyroxine 100 MCG Tablet 200 MCG PO (06:10)
[2024-02-01] MEDS: Heparin Injection (Vial) 5,000 UNIT/ML VIAL 5000 UNIT SC (06:10)
[2024-02-01 07:12] LABS: Bedside Glucose 132 mg/dL (74-106)
[2024-02-01 07:50] VITALS: PULSE 106; RESP 18
[2024-02-01] MEDS: Albuterol 2.5 MG/3 ML VIAL.NEB. INHALATION (07:50)
[2024-02-01] MEDS: Budesonide Respules 0.5 MG/2 ML AMPUL.NEB. INHALATION (07:50)
[2024-02-01] MEDS: Citalopram 40 MG TABLET PO (08:02)
[2024-02-01] MEDS: Ezetimibe 10 MG Tablet PO (08:02)
[2024-02-01] MEDS: Fluticasone 0.05% 1 SPRAY NASAL.SRY 2 SPRAY NASAL (08:02)
[2024-02-01 08:13] LABS: Anion Gap 7 (5-15); BUN 12 mg/dL (7-18); BUN/Creat Ratio 8.2 RATIO (10-20); Calcium,Total 9.8 mg/dL (8.5-10.1); Chloride 109 mmol/L (98-107); Creatinine, Serum 1.47 mg/dL (0.55-1.02); EST Glomerular Filtration Rate 39 mL/min (>60); Est Glom Filt Rate - Afr Amer 48 mL/min (>60); Estimated Creatinine Clearance 62.51 ml/min; Glucose 122 mg/dL (74-106); Potassium 4.2 mmol/L (3.5-5.1); Sodium Level 138 mmol/L (136-145)
[2024-02-01 09:34] VITALS: BP 154/87; PULSE 103; RESP 16; TEMP 36.4; O2SAT 97
--- NOTE | 2024-02-01 10:16 | DCINST_ITS ---
Discharge Instructions Diet Discharge Diet: 1800 Calorie Control Diet DC O2, CPAP, BIPAP needs Additional Home O2 Discharge instructions: No Dressing / Incision Discharge Activity: Return to Normal Activity Weight Bearing Status: Full weight bearing Follow Up Care Test Results: Test results from this visit will be discussed in further detail at your follow- up appointment, if applicable. Discharge Plan Admission Admit Date/Time: 01/30/24 17:12 Primary Reason for Your Visit: jonny Attending Provider: Manuel Driscoll Primary Care Provider: Nasreen Sutton Consulting Providers: Sera Sandhu; Leanne Rosas Discharge Orders/Prescriptions Prescriptions: Continued budesonide-formoterol [Symbicort] 160-4.5 mcg/actuation HFA aerosol inhaler 2 puff INHALATION BID ezetimibe [Zetia] 10 mg tablet 10 mg PO QDAY Qty: 30 11RF cyclobenzaprine 5 mg tablet 5 mg PO Q8H atorvastatin 80 mg Tablet 80 mg PO DAILY metoclopramide HCl [Reglan] 10 mg tablet 10 mg PO Q6H PRN (Reason: NAUSEA AND VOMTING ) Qty: 20 0RF Emgality Syringe 120 mg/mL syringe 120 mg subcut Q30D Patient Comments: END OF MONTH trazodone 50 mg tablet 50 - 100 mg PO QHS gabapentin 300 mg capsule 300 mg PO TID naratriptan 2.5 mg tablet 2.5 mg PO BID PRN (Reason: migraines) Rx Instructions: can repeat dose, two hours after first dose taken. do not exceed more than two doses in 24 hours. fluticasone propionate 50 mcg/actuation spray,suspension 2 spray INTRANASAL Q12H Patient Comments: [NO ORIGINAL SIG] tramadol 50 mg tablet 50 mg PO TID levothyroxine 200 mcg tablet 200 mcg PO DAILY valsartan 160 mg tablet 160 mg PO BID citalopram 40 mg tablet 40 mg PO DAILY isosorbide mononitrate 30 mg tablet extended release 24 hr 30 mg PO DAILY Qty: 30 11RF Discontinued furosemide 40 mg tablet 40 mg PO DAILY Qty: 30 11RF potassium chloride 10 mEq capsule, extended release 10 meq PO DAILY Qty: 30 11RF Referrals / Follow Up: Nasreen Sutton MD [Primary Care Provider] - Within 2 Weeks Disposition Disposition (needs filled in before D/C Order can be placed): Home, Self Care
--- NOTE | 2024-02-01 10:20 | DS.PCM_ITS ---
Providers Date of Admission: 01/30/24 Date of Discharge: 02/01/24 Primary Care Physician: Nasreen Sutton MD Consultations 01/30/24 23:43 Consult: Nephrology Routine Consulting Provider: Sera Sandhu Reason for Consult: new onset renal failure EMERGENT Consult: No MD Notified: Yes Date Notified: 01/30/24 Time Notified: 23:45 Method of Notification: Answering Service Reason For Visit: KIDNEY FAILURE Diagnosis Discharge Diagnosis (1) MARYANA (acute kidney injury): Status: Acute Code(s): N17.9 - Acute kidney failure, unspecified Plan 1. Acute kidney injury secondary to diuretic usage-patient's Lasix has been stopped, I will administer additional fluid and repeat patient's lab in the morning #2 class III obesity-complicates care, management, recovery, and prognosis #3 hypothyroidism-patient currently is on Synthroid #4 chronic obstructive pulmonary disease-patient will remain on aerosol treatments #5 hyperlipidemia-patient is on Lipitor and Zetia #6 type 2 diabetes-patient is on fingerstick blood sugars with sliding scale insulin, patient is diet controlled as an outpatient Total clinical time spent by myself addressing the patient's medical issues, reviewing all of her data, and collaborating with patient's care team: 35 minutes Medications at Discharge Home Medications citalopram 40 mg tablet 40 mg PO DAILY DEPRESSION/ANXIETY 07/27/19 budesonide-formoterol HFA 160 mcg-4.5 mcg/actuation aerosol inhaler (Symbicort) 2 puff inhalation BID COPD 04/02/20 metoclopramide HCl 10 mg tablet (Reglan) 10 mg PO Q6H PRN NAUSEA AND VOMTING #20 tabs 01/07/23 atorvastatin 80 mg tablet 80 mg PO DAILY CHOLESTEROL 02/10/23 cyclobenzaprine 5 mg tablet 5 mg PO Q8H MUSCLE SPASMS 02/10/23 galcanezumab-gnlm 120 mg/mL subcutaneous syringe (Emgality) 120 mg subcut Q30D migraines 07/29/23 trazodone 50 mg tablet 50 - 100 mg PO QHS SLEEP 07/29/23 gabapentin 300 mg capsule 300 mg PO TID pain 09/30/23 naratriptan 2.5 mg tablet 2.5 mg PO BID PRN migraines 10/01/23 isosorbide mononitrate 30 mg tablet,extended release 24 hr 30 mg PO DAILY HEART #30 tabs 10/18/23 ezetimibe 10 mg tablet (Zetia) 10 mg PO QDAY cholesterol #30 tabs 11/28/23 fluticasone propionate 50 mcg/actuation nasal spray,suspension 2 spray intranasal Q12H allergies 01/20/24 levothyroxine 200 mcg tablet 200 mcg PO DAILY thyroid 01/20/24 tramadol 50 mg tablet 50 mg PO TID pain 01/20/24 valsartan 160 mg tablet 160 mg PO BID blood pressure 01/20/24 Hospital Course Operations None Procedures None Summary of Care Provided Minutes Spent on Discharge: 31 Hospital Course: This 53-year-old female was seen in the emergency room at [facility] with complaints of malaise. She had recently been in the hospital for a urinary tract infection and she has noticed since she has gotten home that she is felt generally fatigued and has a sore throat. Workup in the emergency room showed an elevated white blood cell count of 15.1, hemoglobin was 10.3, creatinine was elevated at 3.52 and BUN was 20, urinalysis was unremarkable CT of the abdomen and pelvis did not show any acute pathology. Patient was admitted to PCU for acute kidney injury, she was given IV fluids, it was determined that she was placed back on her furosemide when she left the hospital recently after having been taken off this medication during her hospitalization. On 02/01/2024, patient was seen and examined: On examination she appeared in good health and spirits, she does not appear to be in any distress. Vital signs as documented. Skin warm and dry and without overt rashes. Neck without JVD, thyroid appears normal, trachea is midline, neck is supple. Lungs clear, normal air movement was noted. Heart exam notable for regular rhythm, normal sounds and absence of murmurs, rubs or gallops. Abdomen unremarkable and without evidence of organomegaly, masses, or abdominal aortic enlargement, bowel sounds are present in all 4 quadrants, no abdominal tenderness was noted. Extremities nonedematous, no cyanosis was noted, no clubbing was noted. Neuro: Cranial nerves II through XII are grossly intact, no focal motor deficits were noted, sensation to light touch and pinprick is intact, motor exam 5/5 throughout. Psych: Patient is alert and oriented x3, she does not appear anxious or depressed, she does not appear agitated. Patient appears stable for discharge home on 02/01/24. Weight / BMI Weight Weight: 141.6 kg Body Mass Index (BMI) 53.6 ABG / Lab / Microbiology Data 01/31/24 06:55 02/01/24 03:40 Laboratory: Laboratory Results - last 24 hr 01/31/24 11:51: POC Glucose 115 H 01/31/24 16:56: POC Glucose 112 H 01/31/24 21:52: POC Glucose 116 H 02/01/24 03:40: Sodium 138, Potassium 4.2, Chloride 109 H, Carbon Dioxide 23.0, Anion Gap 7, BUN 12, Creatinine 1.47 H, Estim Creat Clear Calc 62.51, Est GFR (MDRD) Af Amer 48 L, Est GFR (MDRD) Non-Af 39 L, BUN/Creatinine Ratio 8.2 L, G lucose 122 H, Calcium 9.8 02/01/24 06:17: POC Glucose 132 H Microbiology: Microbiology 01/31/24 06:00 Urine, Clean Catch Urine Culture - Final Mixed Gram Positive Organisms 01/31/24 00:15 Blood Culture (Wb) - Arm Left Blood Culture - Preliminary No growth in 48 hours. 01/30/24 12:45 Mucosa - Nose SARS-CoV-2, Influenza & RSV (PCR) - Final D/C Instructions Discharge Diet: 1800 Calorie Control Diet Weight Bearing Status: Full weight bearing DC O2, CPAP, BIPAP Needs Additional Home O2 Discharge instructions: No DC home with Oxygen: No Meaningful Use Info Meaningful Use Meaningful Use Diagnoses (Choose all that apply): None applicable Ischemic Stroke Statin Dosing Therapy Reference: STATIN DOSE THERAPY REFERENCE: * Patients > 75 years receive moderate or high dose statin therapy. * Patients 75 years or YOUNGER should receive HIGH intensity statin dose unless contraindicated. You will be required to document reason for non-treatment if statin daily dose does not meet guidelines. HIGH DOSE STATIN THERAPY DAILY Atorvastatin > than or = to 40 mg Rosuvastatin > than or = to 20 mg Amlodipine + Atorvastatin > than or = to 2.5/40 mg Ezetimibe + Simvastatin 10/80 mg Simvastatin 80mg Discharge Plan Admission Admit Date/Time: 01/30/24 17:12 Primary Reason for Your Visit: jonny Attending Provider: Manuel Driscoll Primary Care Provider: Nasreen Sutton Consulting Providers: Sera Sandhu; Leanne Rosas Discharge Orders/Prescriptions Prescriptions: Continued budesonide-formoterol [Symbicort] 160-4.5 mcg/actuation HFA aerosol inhaler 2 puff INHALATION BID ezetimibe [Zetia] 10 mg tablet 10 mg PO QDAY Qty: 30 11RF cyclobenzaprine 5 mg tablet 5 mg PO Q8H atorvastatin 80 mg Tablet 80 mg PO DAILY metoclopramide HCl [Reglan] 10 mg tablet 10 mg PO Q6H PRN (Reason: NAUSEA AND VOMTING ) Qty: 20 0RF Emgality Syringe 120 mg/mL syringe 120 mg subcut Q30D Patient Comments: END OF MONTH trazodone 50 mg tablet 50 - 100 mg PO QHS gabapentin 300 mg capsule 300 mg PO TID naratriptan 2.5 mg tablet 2.5 mg PO BID PRN (Reason: migraines) Rx Instructions: can repeat dose, two hours after first dose taken. do not exceed more than two doses in 24 hours. fluticasone propionate 50 mcg/actuation spray,suspension 2 spray INTRANASAL Q12H Patient Comments: [NO ORIGINAL SIG] tramadol 50 mg tablet 50 mg PO TID levothyroxine 200 mcg tablet 200 mcg PO DAILY valsartan 160 mg tablet 160 mg PO BID citalopram 40 mg tablet 40 mg PO DAILY isosorbide mononitrate 30 mg tablet extended release 24 hr 30 mg PO DAILY Qty: 30 11RF Discontinued furosemide 40 mg tablet 40 mg PO DAILY Qty: 30 11RF potassium chloride 10 mEq capsule, extended release 10 meq PO DAILY Qty: 30 11RF Referrals / Follow Up: Nasreen Sutton MD [Primary Care Provider] - 02/02/24 11:30 am Disposition Disposition (needs filled in before D/C Order can be placed): Home, Self Care Charges/Coding Visit Charges Inpatient E&M: 51639 Disch Hosp >30min
== END 2024-02-01 10:41 | disposition home or self-care (01) | DRG 683 ==
LOC: ED 16:03 → PCU 01-31 07:18
PROVIDERS: Admitting Provider Internal Medicine; Emergency Provider Emergency Medicine; PCP Family Medicine; Visit Provider Internal Medicine
DX: N17.9 Acute kidney failure, unspecified (principal); Z68.43 Body mass index [BMI] 50.0-59.9, adult; B96.5 Pseudomonas (aeruginosa) (mallei) (pseudomallei) as the cause of diseases classified elsewhere; J44.9 Chronic obstructive pulmonary disease, unspecified; E11.22 Type 2 diabetes mellitus with diabetic chronic kidney disease; E03.9 Hypothyroidism, unspecified; I12.9 Hypertensive chronic kidney disease with stage 1 through stage 4 chronic kidney disease, or unspecified chronic kidney disease; N18.9 Chronic kidney disease, unspecified; E66.01 Morbid (severe) obesity due to excess calories; G47.33 Obstructive sleep apnea (adult) (pediatric); G43.909 Migraine, unspecified, not intractable, without status migrainosus; E78.5 Hyperlipidemia, unspecified; E78.00 Pure hypercholesterolemia, unspecified; Z79.890 Hormone replacement therapy; Z79.1 Long term (current) use of non-steroidal anti-inflammatories (NSAID); Z79.51 Long term (current) use of inhaled steroids; G89.29 Other chronic pain; E66.813 Obesity, class 3
CPT/HCPCS: 36415; 74176; 80048; 80053; 81001; 82043; 82436; 82570; 82962; 83735; 84133; 84300; 84436; 84443; 84480; 84540; 85025; 87040; 87086; 87088; 87631; 94640; 94668; 97161; 97166; 99252; 99284; J7030; A4216; G0463

== ENCOUNTER 2024-02-17 14:24 | Emergency (ER) | payer MEDICARE, MEDICAID, SELFPAY ==
[2024-02-17 14:25] VITALS: BP 164/96; PULSE 96; RESP 16; TEMP 36.6; O2SAT 97; BMI 51.6
--- NOTE | 2024-02-17 14:41 | EDS_ITS ---
HPI History of Present Illness Chief Complaint: Edema Informant: patient Onset/Context/Timing Onset: Days (3) Context: Gradual Onset Timing: Continuous Quality: Burning, tightness Location: Bilateral lower legs Worsened by: Ambulation Relieved by: Nothing Narrative Narrative: Patient presents with lower extremity swelling that has been getting worse over the past 3 days. Patient states she went to the urgent care today and was referred to the emergency department. Patient describes her pain in her legs as burning and tightness. Patient states it is worse with ambulation. Patient states nothing makes it better. Patient denies any fevers or chills. Patient denies any nausea or vomiting. Patient denies any chest pain or shortness of breath. Patient states she has a history of congestive heart failure and chronic kidney disease. [facility] Medical History Kidney failure MARYANA (acute kidney injury) Fatigue MARYANA (acute kidney injury) Walker as ambulation aid Ambulates with cane Low iron History of renal disease High cholesterol DVT (deep venous thrombosis) PONV (postoperative nausea and vomiting) Stroke/cerebrovascular accident Sleep apnea Fall Cardiology follow-up encounter Scalp hematoma Pulmonary embolism Post-menopausal Thyroid disease Injury of head and neck Dietary restriction Difficulty swallowing BiPAP (biphasic positive airway pressure) dependence COPD (chronic obstructive pulmonary disease) Shortness of breath on exertion Leg cramps History of pain when walking History of edema History of echocardiogram History of stress test Syncope Abnormal glucose Noncompliance DAVY treated with BiPAP UTI (urinary tract infection) Vitamin D deficiency Restless leg syndrome Vitamin B12 deficiency Iron deficiency anemia History of chronic back pain Wears glasses Arthritis Non-smoker Hydronephrosis Depression Anemia Migraine headache Chronic kidney disease Diabetes mellitus Gout Celiac disease Hyperlipidemia GERD (gastroesophageal reflux disease) Dyspnea on exertion Chest pain Hypersomnia Cardiac murmur Microcytic anemia Hypertension Morbid obesity with BMI of 40.0-44.9, adult Asthma Hypothyroidism Anxiety Home Medications ?Medication ?Instructions ?Recorded ?Last Taken ?Type citalopram 40 mg tablet 40 mg PO DAILY DEPRESSION/ANXIETY 07/27/19 09/30/23 Hi story budesonide-formoterol HFA 160 2 puff inhalation BID COPD 04/02/20 09/30/23 History mcg-4.5 mcg/actuation aerosol inhaler (Symbicort) metoclopramide HCl 10 mg tablet 10 mg PO Q6H PRN NAUSEA AND 01/07/23 Unknown Rx (Reglan) VOMTING #20 tabs atorvastatin 80 mg tablet 80 mg PO DAILY CHOLESTEROL 02/10/23 09/30/23 History cyclobenzaprine 5 mg tablet 5 mg PO Q8H MUSCLE SPASMS 02/10/23 09/30/23 History galcanezumab-gnlm 120 mg/mL 120 mg subcut Q30D migraines 07/29/23 Unknown History subcutaneous syringe (Emgality) trazodone 50 mg tablet 50 - 100 mg PO QHS SLEEP 07/29/23 09/30/23 History gabapentin 300 mg capsule 300 mg PO TID pain 09/30/23 09/30/23 History naratriptan 2.5 mg tablet 2.5 mg PO BID PRN migraines 10/01/23 Unknown History isosorbide mononitrate 30 mg 30 mg PO DAILY HEART #30 tabs 10/18/23 Unknown Rx tablet,extended release 24 hr ezetimibe 10 mg tablet (Zetia) 10 mg PO QDAY cholesterol #30 tabs 11/28/23 Unknown Rx fluticasone propionate 50 2 spray intranasal Q12H allergies 01/20/24 Unknown History mcg/actuation nasal spray,suspension levothyroxine 200 mcg tablet 200 mcg PO DAILY thyroid 01/20/24 Unknown History tramadol 50 mg tablet 50 mg PO TID pain 01/20/24 Unknown History valsartan 160 mg tablet 160 mg PO BID blood pressure 01/20/24 Unknown History Allergy/AdvReac Type Severity Reaction Status Date / Time hydrochlorothiazide AdvReac Intermediate Contributes Verified 02/17/24 14:25 to gout naproxen (From Naprosyn) AdvReac Intermediate Nausea Verified 02/17/24 14:25 aspirin AdvReac Nausea Verified 02/17/24 14:25 Family History Father , Age 72 Hypertension Mother CAD (coronary artery disease) Myocardial infarction, Onset Age: 55 Hypertension Sister CAD (coronary artery disease) Brother Cancer Surgical History History of cardiac catheterization History of History of carpal tunnel surgery of right wrist History of carpal tunnel surgery of left wrist Hx of cystoscopy History of left heart catheterization (11/11/20) history of uterine ablation Social History household members: none housing: apartment Smoking Status: Never smoker alcohol intake: never substance use type: does not use caffeine: No ROS ROS ED Constitutional Constitutional ED: Denies chills or fever(s) Eyes Eyes: Denies blurry vision or change in vision ENT ENT ED: Denies rhinorrhea or sore throat Cardiovascular Cardiovascular: Denies chest pain or palpitations Respiratory/Chest Respiratory/Chest: Denies cough or dyspnea Gastrointestinal Gastrointestinal: Denies nausea or vomiting Genitourinary Genitourinary ED: Denies dysuria or hematuria Musculoskeletal Musculoskeletal: Denies back pain or neck pain Integumentary Denies abscess or rash Neurologic Neurologic: Denies headache(s) or weakness Allergic/Immunologic Allergic/Immunologic ED: Denies mouth swelling or urticaria EXAM Physical Exam Const Vital Signs: 02/17/24 14:24 02/17/24 14:25 02/17/24 16:57 Temperature 97.8 F 98.0 F Temperature Source Oral Pulse Rate 96 93 Respiratory Rate 16 19 H Respiratory Effort Normal Respiratory Pattern Normal Blood Pressure 164/96 H 128/76 H Blood Pressure Mean 118 93 Pulse Ox 97 96 Oxygen Delivery Method Room Air Positive well nourished and well developed General Appearance ED: well developed and NAD HEENT Reports moist mucous membranes Neck supple and no JVD Resp normal respiratory effort and clear to auscultation bilaterally Cardio regular rate and regular rhythm GI non-tender and non-distended Palpation: soft Extremity Extremity Narrative: There is 1+ edema of the lower extremities up to the knees bilaterally. There is no calf tenderness. Pedal pulses are equal bilaterally. Capillary refill was less than 2 seconds in all digits. There is good range of motion of the lower extremities bilaterally. General Extremety ED: Yes edema General Extremity: edema Neuro oriented x3, CN's II-XII intact bilaterally and no sensory deficits noted Sensorium / Orientation: alert Motor Exam: strength 5/5 throughout Psych mental status grossly normal MDM MDM MDM Narrative Medical decision making narrative: Differential diagnosis includes congestive heart failure, acute kidney injury, electrolyte abnormality, peripheral edema, and cardiac ischemia. EKG will be obtained to assess for cardiac dysrhythmia and cardiac ischemia. Chest x-ray will be obtained to assess for congestive heart failure and pneumonia. CBC will be obtained to assess for leukocytosis and anemia. Basic metabolic profile will be obtained to assess for electrolyte abnormality and renal function. High- sensitivity troponin will be obtained to assess for cardiac ischemia. Lab Data Attestation: I reviewed the patient's lab results. Lab results narrative: CBC was reviewed. White blood cell count was minimally elevated at 11.6. Hem oglobin was 11.1 and hematocrit was 36.1. Platelets were normal. Basic metabolic profile was reviewed. Creatinine was slightly elevated at 1.21. This is consistent with previous results. The remainder is within normal limits. BNP was reviewed and was normal at 4. High-sensitivity troponin was reviewed and was normal at 9. Labs: Laboratory Results - last 24 hr 02/17/24 16:14 WBC 11.6 H RBC 3.83 L Hgb 11.1 L Hct 36.1 L MCV 94.3 MCH 29.0 MCHC 30.7 L RDW Std Deviation 64.3 H RDW Coeff of Alfredo 18.6 H Plt Count 388 MPV 9.5 Immature Gran % (Auto) 0.700 Neut % (Auto) 66.1 Lymph % (Auto) 17.2 L [place] % (Auto) 6.1 Eos % (Auto) 9.1 H Baso % (Auto) 0.8 Absolute Neuts (auto) 7.7 Absolute Lymphs (auto) 1.99 Nucleated RBC % 0 Sodium 138 Potassium 4.2 Chloride 104 Carbon Dioxide 29.0 Anion Gap 4 L BUN 9 Creatinine 1.21 H Estim Creat Clear Calc 74.22 Est GFR (MDRD) Af Amer 60 Est GFR (MDRD) Non-Af 49 L BUN/Creatinine Ratio 7.4 L Glucose 97 Calcium 9.6 Troponin I High Sens 9 B-Natriuretic Peptide 4.0 Radiography Chest X-Ray - ED: 2 View, Read by ED Physician, Read by Radiologist and No Acute Disease Diagnostic Testing: Clinical Impression(s) from Imaging Studies Chest X-Ray 02/17/24 15:57 IMPRESSION: No radiographic evidence of acute cardiopulmonary disease. Electronically Signed: Roscoe Angelo DO at 16:14 EST , PA and lateral chest x-ray was obtained. There are 2 views. On my independent interpretation, lung lee are clear. There is normal cardiac silhouette. Bony thorax is normal. There is no acute process noted. Radiologist also interpreted the x-ray and agrees. EKG Initial EKG: Attestation: I personally reviewed and interpreted this EKG as follows: Interpretation: Sinus Rhythm (85) and No Acute Injury Pattern Comments: EKG was obtained. On my independent interpretation, it showed a normal sinus rhythm with a rate of 85. [place] interval, QRS interval, and QTc intervals were all normal. [place] was normal. There are no acute ST or T wave changes. Prior EKG tracings: available for review Prior: Unchanged (01/20/2024) Treatment and Re-Evaluation :: Patient was advised of her findings. Patient was instructed to keep her legs elevated. Patient was instructed to follow-up with her primary care physician in 5 to 7 days. Patient was instructed to return if worse in any way. Patient understood and was agreeable with the plan. All questions were answered. Discharge Plan Triage Chief Complaint: Edema ED Provider: Anam Cuevas Dx/Rx/DC Orders Clinical Impression: Peripheral edema, Diabetes mellitus, Morbid obesity with BMI of 50.0-59.9, adult Instructions: ED Peripheral Edema, Bilateral Prescriptions: No Action budesonide-formoterol [Symbicort] 160-4.5 mcg/actuation HFA aerosol inhaler 2 puff INHALATION BID ezetimibe [Zetia] 10 mg tablet 10 mg PO QDAY Qty: 30 11RF cyclobenzaprine 5 mg tablet 5 mg PO Q8H atorvastatin 80 mg Tablet 80 mg PO DAILY metoclopramide HCl [Reglan] 10 mg tablet 10 mg PO Q6H PRN (Reason: NAUSEA AND VOMTING ) Qty: 20 0RF Emgality Syringe 120 mg/mL syringe 120 mg subcut Q30D Patient Comments: END OF MONTH trazodone 50 mg tablet 50 - 100 mg PO QHS gabapentin 300 mg capsule 300 mg PO TID naratriptan 2.5 mg tablet 2.5 mg PO BID PRN (Reason: migraines) Rx Instructions: can repeat dose, two hours after first dose taken. do not exceed more than two doses in 24 hours. fluticasone propionate 50 mcg/actuation spray,suspension 2 spray INTRANASAL Q12H Patient Comments: [NO ORIGINAL SIG] tramadol 50 mg tablet 50 mg PO TID levothyroxine 200 mcg tablet 200 mcg PO DAILY valsartan 160 mg tablet 160 mg PO BID citalopram 40 mg tablet 40 mg PO DAILY isosorbide mononitrate 30 mg tablet extended release 24 hr 30 mg PO DAILY Qty: 30 11RF Primary Care Provider: Nasreen Sutton Referrals: Nasreen Sutton MD [Primary Care Provider] - 3-5 Days Print Language: Syriac Disposition Disposition: Home, Self Care
--- NOTE | 2024-02-17 15:30 | EKG12_ITS ---
Test Reason : Blood Pressure : */* mmHG Vent. Rate : 85 BPM Atrial Rate : 85 BPM P-R Int : 164 ms QRS Dur : 86 ms QT Int : 420 ms P-R-T Axes : 51 -3 41 degrees QTcB Int : 499 ms Normal sinus rhythm Low voltage QRS Nonspecific T wave abnormality Abnormal ECG Confirmed by MAGALI RIVERA MD ([id number]), market editor SONJA ZABALA ([id number]) on 02/20/2024 6:37:46 AM Referred By: Confirmed By: MAGALI RIVERA MD
--- NOTE | 2024-02-17 15:57 | RAD_ITS ---
INDICATION: Edema EXAMINATION/TECHNIQUE: X-RAY - XR Chest 2 Views COMPARISON: January 20, 2024 FINDINGS: LINES/DEVICES: None. LUNGS: No consolidation, edema or effusion. No pneumothorax. MEDIASTINUM AND CARDIOVASCULAR STRUCTURES: Cardiac silhouette not enlarged. Central airways and mediastinal contour are unremarkable. BONES AND SOFT TISSUES: Unremarkable. RAD/Chest PA and Lateral IMPRESSION: No radiographic evidence of acute cardiopulmonary disease. Electronically Signed: Roscoe Angelo DO at 16:14 EST ,
[2024-02-17 16:21] LABS: Absolute Lymphocyte Count 1.99 X10^3/uL (0.83-4.51); Absolute Neutrophil Count 7.7 X10^3/uL (2.0-7.7); Basophil# 0.09 X10^3/uL; Basophil% 0.8 % (0-1); Eosinophil# 1.05 X10^3/uL; Eosinophils% 9.1 % (0-5); Hematocrit 36.1 % (37-47); Hemoglobin 11.1 g/dL (12.0-15.0); Lymphocyte # 1.99 X10^3/ul (0.83-4.51); Lymphocyte % 17.2 % (19-41); Mean Corp Hgb Conc 30.7 g/dL (32-36); Mean Corpuscular Volume 94.3 fL (81-99); Mean Platelet Vol. 9.5 fl (6.2-12.0); Monocyte# 0.71 X10^3/uL; Monocyte% 6.1 % (0-10); NRBC Flagged by Analyzer 0 % (0-5); Neutrophil # 7.67 X10^3/uL (2.7-7.7); Neutrophil % 66.1 % (47-70); Platelet Count 388 K/mm3 (150-450); RBC Distribution Width CV 18.6 % (11.6-14.6); RBC Distribution Width SD 64.3 fl (35.1-43.9); Red Blood Count 3.83 M/mm3 (4.2-5.4); White Blood Count 11.6 K/mm3 (4.4-11.0)
[2024-02-17 16:41] LABS: Anion Gap 4 (5-15); BUN 9 mg/dL (7-18); BUN/Creat Ratio 7.4 RATIO (10-20); Calcium,Total 9.6 mg/dL (8.5-10.1); Chloride 104 mmol/L (98-107); Creatinine, Serum 1.21 mg/dL (0.55-1.02); EST Glomerular Filtration Rate 49 mL/min (>60); Est Glom Filt Rate - Afr Amer 60 mL/min (>60); Estimated Creatinine Clearance 74.22 ml/min; Glucose 97 mg/dL (74-106); Potassium 4.2 mmol/L (3.5-5.1); Sodium Level 138 mmol/L (136-145); Troponin-I HS 9 pg/mL (3.0-54.0)
[2024-02-17 16:57] VITALS: BP 128/76; PULSE 93; RESP 19; TEMP 36.7; O2SAT 96
== END 2024-02-17 17:19 | disposition home or self-care (01) ==
PROVIDERS: Emergency Provider Emergency Medicine; PCP Family Medicine; Visit Provider Emergency Medicine
DX: R60.0 Localized edema (principal); J44.9 Chronic obstructive pulmonary disease, unspecified; E66.01 Morbid (severe) obesity due to excess calories; E11.22 Type 2 diabetes mellitus with diabetic chronic kidney disease; I12.9 Hypertensive chronic kidney disease with stage 1 through stage 4 chronic kidney disease, or unspecified chronic kidney disease; E78.00 Pure hypercholesterolemia, unspecified; N18.9 Chronic kidney disease, unspecified; Z79.51 Long term (current) use of inhaled steroids; Z79.899 Other long term (current) drug therapy
CPT/HCPCS: 71046; 80048; 83880; 84484; 85025; 93005; 99284; A4216

== ENCOUNTER → 2024-02-20 | Outpatient (CLI) | payer MEDICARE, MEDICAID, SELFPAY ==
[2024-02-20 15:41] LABS: Anion Gap 6 (5-15); BUN 7 mg/dL (7-18); BUN/Creat Ratio 5.8 RATIO (10-20); Calcium,Total 9.4 mg/dL (8.5-10.1); Chloride 105 mmol/L (98-107); Creatinine, Serum 1.21 mg/dL (0.55-1.02); EST Glomerular Filtration Rate 49 mL/min (>60); Est Glom Filt Rate - Afr Amer 60 mL/min (>60); Glucose 115 mg/dL (74-106); Sodium Level 140 mmol/L (136-145)
== END | disposition home or self-care (01) ==
LOC: MTLAB 13:15
PROVIDERS: PCP Family Medicine; Referring Provider Internal Medicine Pulmonary Disease; Visit Provider Internal Medicine Pulmonary Disease
DX: E03.9 Hypothyroidism, unspecified (principal); N17.9 Acute kidney failure, unspecified; G47.33 Obstructive sleep apnea (adult) (pediatric)
CPT/HCPCS: 36415; 80048; 84443

== ENCOUNTER 2024-03-01 09:45 | Emergency (ER) | payer MEDICARE, MEDICAID, SELFPAY ==
[2024-03-01 09:45] VITALS: BP 131/70; PULSE 81; RESP 16; TEMP 35.6; O2SAT 92; BMI 52.4
--- NOTE | 2024-03-01 09:52 | ED.RN ---
pt resting in bed with eyes closed. requested lights be turned off.
--- NOTE | 2024-03-01 10:41 | ED.VIS.FALL ---
HPI HPI - Fall History of Present Illness Chief Complaint: Fall Informant: patient Occured/Mechanism Mechanism/Context: Yes same level fall Usually ambulates: Walker (Sometimes) Pain/Injury Location: Low back and right ankle Quality of Pain: Aching Worsened by: Movement Relieved by: Nothing Associated Symptoms Associated Symptoms: Negative for Parasthesias, Weakness, Loss of function, Inability to ambulate or Loss of consciousness Narrative Narrative: Patient presents after a fall that occurred 4 days ago. Patient states that she fell while walking out of the bathroom. Patient states her legs gave out. Patient states she is unsure if she passed out or if she just lost her balance. Patient states that sometimes she walks with a walker. Patient states her legs feel shaky. Patient denies any nausea or vomiting. Patient states her pain is worse over her back and right ankle. Patient states her back pain has improved. Patient denies any paresthesias. Patient denies any other injuries. [facility] Medical History Kidney failure MARYANA (acute kidney injury) Fatigue MARYANA (acute kidney injury) Walker as ambulation aid Ambulates with cane Low iron History of renal disease High cholesterol DVT (deep venous thrombosis) PONV (postoperative nausea and vomiting) Stroke/cerebrovascular accident Sleep apnea Fall Cardiology follow-up encounter Scalp hematoma Pulmonary embolism Post-menopausal Thyroid disease Injury of head and neck Dietary restriction Difficulty swallowing BiPAP (biphasic positive airway pressure) dependence COPD (chronic obstructive pulmonary disease) Shortness of breath on exertion Leg cramps History of pain when walking History of edema History of echocardiogram History of stress test Syncope Abnormal glucose Noncompliance DAVY treated with BiPAP UTI (urinary tract infection) Vitamin D deficiency Restless leg syndrome Vitamin B12 deficiency Iron deficiency anemia History of chronic back pain Wears glasses Arthritis Non-smoker Hydronephrosis Depression Anemia Migraine headache Chronic kidney disease Diabetes mellitus Gout Celiac disease Hyperlipidemia GERD (gastroesophageal reflux disease) Dyspnea on exertion Chest pain Hypersomnia Cardiac murmur Microcytic anemia Hypertension Morbid obesity with BMI of 40.0-44.9, adult Asthma Hypothyroidism Anxiety Home Medications ?Medication ?Instructions ?Recorded ?Last Taken ?Type citalopram 40 mg tablet 40 mg PO DAILY DEPRESSION/ANXIETY 07/27/19 09/30/23 History budesonide-formoterol HFA 160 2 puff inhalation BID COPD 04/02/20 09/30/23 History mcg-4.5 mcg/actuation aerosol inhaler (Symbicort) metoclopramide HCl 10 mg tablet 10 mg PO Q6H PRN NAUSEA AND 01/07/23 Unknown Rx (Reglan) VOMTING #20 tabs atorvastatin 80 mg tablet 80 mg PO DAILY CHOLESTEROL 02/10/23 09/30/23 History cyclobenzaprine 5 mg tablet 5 mg PO Q8H MUSCLE SPASMS 02/10/23 09/30/23 History galcanezumab-gnlm 120 mg/mL 120 mg subcut Q30D migraines 07/29/23 Unknown History subcutaneous syringe (Emgality) trazodone 50 mg tablet 50 - 100 mg PO QHS SLEEP 07/29/23 09/30/23 History gabapentin 300 mg capsule 300 mg PO TID pain 09/30/23 09/30/23 History naratriptan 2.5 mg tablet 2.5 mg PO BID PRN migraines 10/01/23 Unknown History isosorbide mononitrate 30 mg 30 mg PO DAILY HEART #30 tabs 10/18/23 Unknown Rx tablet,extended release 24 hr ezetimibe 10 mg tablet (Zetia) 10 mg PO QDAY cholesterol #30 tabs 11/28/23 Unknown Rx fluticasone propionate 50 2 spray intranasal Q12H allergies 01/20/24 Unknown History mcg/actuation nasal spray,suspension levothyroxine 200 mcg tablet 200 mcg PO DAILY thyroid 01/20/24 Unknown History tramadol 50 mg tablet 50 mg PO TID pain 01/20/24 Unknown History valsartan 160 mg tablet 160 mg PO BID blood pressure 01/20/24 Unknown History cephalexin 500 mg capsule 500 mg PO Q6 #12 CAPSULES 03/01/24 Unknown Rx Allergy/AdvReac Type Severity Reaction Status Date / Time hydrochlorothiazide AdvReac Intermediate Contributes Verified 03/01/24 09:46 to gout naproxen (From Naprosyn) AdvReac Intermediate Nausea Verified 03/01/24 09:46 aspirin AdvReac Nausea Verified 03/01/24 09:46 Family History Father , Age 72 Hypertension Mother CAD (coronary artery disease) Myocardial infarction, Onset Age: 55 Hypertension Sister CAD (coronary artery disease) Brother Cancer Surgical History History of cardiac catheterization History of History of carpal tunnel surgery of right wrist History of carpal tunnel surgery of left wrist Hx of cystoscopy History of left heart catheterization (11/11/20) history of uterine ablation Social History household members: none housing: apartment Smoking Status: Never smoker alcohol intake: never substance use type: does not use caffeine: No ROS ROS ED Constitutional Constitutional ED: Reports chills; Denies fever(s) Eyes Eyes: Reports blurry vision; Denies change in vision ENT ENT ED: Denies rhinorrhea or sore throat Cardiovascular Cardiovascular: Denies chest pain or palpitations Respiratory/Chest Respiratory/Chest: Denies cough or dyspnea Gastrointestinal Gastrointestinal: Denies nausea or vomiting Genitourinary Genitourinary ED: Denies dysuria or hematuria Musculoskeletal Musculoskeletal: Reports back pain; Denies neck pain Integumentary Denies abscess or rash Neurologic Neurologic: Reports headache(s) and weakness Allergic/Immunologic Allergic/Immunologic ED: Denies mouth swelling or urticaria EXAM Physical Exam Const Vital Signs: 03/01/24 09:45 03/01/24 09:48 03/01/24 12:09 Temperature 96.1 F L Temperature Source Temporal Pulse Rate 81 82 Respiratory Rate 16 16 Respiratory Effort Normal Non-Labored Blood Pressure 131/70 H 142/79 H Blood Pressure Mean 90 100 Pulse Ox 92 97 Oxygen Delivery Method Room Air Room Air Positive well nourished and well developed General Appearance ED: well developed and NAD HEENT Reports normocephalic atraumatic Neck full ROM and supple Resp normal respiratory effort and clear to auscultation bilaterally Cardio regular rate and regular rhythm GI non-tender and non-distended Back/Spine Back/Spine Narrative: There is mild tenderness of the lower lumbar spine. There is no midline tenderness. There is no bony crepitance or step-off. Range of motion was limited in all motions of the lumbar spine secondary to pain. Strength is 5/5 bilaterally in the lower extremities. There are no sensory deficits. Lumbar Spine / Lower Back: paraspinal muscle tenderness Extremity Extremity Narrative: There is mild tenderness over the right ankle. There is no bony crepitance or step-off. There is no edema or ecchymosis. Patient is able to ambulate without difficulty. Neuro oriented x3, CN's II-XII intact bilaterally, moves all extremities, no focal motor deficits and no sensory deficits noted Cheryl Coma Scale: document GCS findings Spontaneous Obeys Commands Oriented 15 Sensorium / Orientation: alert Motor Exam: strength 5/5 throughout Psych mental status grossly normal and thought process normal MDM MDM MDM Narrative Medical decision making narrative: Differential diagnosis includes anemia, electrolyte abnormality, urinary tract infection, ankle fracture, lumbosacral strain, and anxiety. CBC will be obtained to assess for leukocytosis and anemia. Basic metabolic profile will be obtained to assess for electrolyte abnormality and renal function. Urinalysis will be obtained to assess for urinary tract infection and hematuria. COVID-19, influenza, and RSV PCR will be obtained to assess for viral illness. X-rays of the right ankle will be obtained to assess for ankle fracture. Urine culture will be obtained to assess for urinary tract infection. Lab Data Attestation: I reviewed the patient's lab results. Lab results narrative: CBC was reviewed. There is a slight leukocytosis of 12.3. There is a mild anemia with a hemoglobin of 10.8 and hematocrit of 36.4. Platelets were normal. Basic metabolic profile was reviewed. Creatinine was slightly elevated at 1.17. This is unchanged compared to previous results. Urinalysis was reviewed. Leukocyte esterase was 500. There are 10-25 white blood cells and 3+ bacteria. There are 5-10 epithelial cells. COVID-19 PCR was reviewed and was negative. Influenza PCR was reviewed and was negative for influenza A and influenza B. RSV PCR was reviewed and was negative. Labs: Laboratory Results - last 24 hr 03/01/24 03/01/24 12:05 13:06 WBC 12.3 H RBC 3.79 L Hgb 10.8 L Hct 36.4 L MCV 96.0 MCH 28.5 MCHC 29.7 L RDW Std Deviation 64.8 H RDW Coeff of Alfredo 18.3 H Plt Count 318 MPV 9.8 Immature Gran % (Auto) 0.600 Neut % (Auto) 69.7 Lymph % (Auto) 17.1 L [place] % (Auto) 8.3 Eos % (Auto) 3.6 Baso % (Auto) 0.7 Absolute Neuts (auto) 8.6 H Absolute Lymphs (auto) 2.10 Nucleated RBC % 0 Sodium 139 Potassium 4.4 Chloride 106 Carbon Dioxide 25.0 Anion Gap 7 BUN 8 Creatinine 1.17 H Estim Creat Clear Calc 77.48 Est GFR (MDRD) Af Amer 62 Est GFR (MDRD) Non-Af 51 L BUN/Creatinine Ratio 6.8 L Glucose 107 H Calcium 9.3 Urine Color Yellow Urine Clarity Clear Urine pH 6.5 Ur Specific [place] 1.010 Urine Protein Negative Urine Glucose (UA) Normal Urine Ketones Negative Urine Occult Blood 10 H Urine Nitrite Negative Urine Bilirubin Negative Urine Urobilinogen Normal Ur Leukocyte Esterase 500 H Urine RBC 0-5 SEEN Urine WBC 10-25 SEEN Ur Squamous Epith Cells 5-10 SEEN Urine Bacteria 3+ Urine Mucus 0 SEEN Radiography Diagnostic Testing: Clinical Impression(s) from Imaging Studies Ankle X-Ray 03/01/24 12:15 IMPRESSION: No evidence of acute fracture. Electronically Signed: Fredrick Sharpe MD at 13:09 EST , X-rays of the right ankle were obtained. There are 3 views. There is no acute fracture or dislocation noted. Radiologist also interpreted the x-rays and agrees. Treatment and Re-Evaluation Narrative: Patient able to ambulate here in the emergency department. Patient was given a dose of Tylenol. Patient was instructed to drink plenty of fluids. Patient was instructed to follow-up with her primary care physician in 5 to 7 days. Patient was instructed to return if worse in any way. Patient understood and was agreeable with the plan. All questions were answered. Discharge Plan Triage Chief Complaint: Fall ED Provider: Anam Cuevas Dx/Rx/DC Orders Clinical Impression: Right ankle sprain, Fall, UTI (urinary tract infection) Instructions: ED Cystitis Female Adult, ED Ankle Sprain (Adult) Prescriptions: New cephalexin 500 mg capsule 500 mg PO Q6 Qty: 12 0RF No Action budesonide-formoterol [Symbicort] 160-4.5 mcg/actuation HFA aerosol inhaler 2 puff INHALATION BID ezetimibe [Zetia] 10 mg tablet 10 mg PO QDAY Qty: 30 11RF cyclobenzaprine 5 mg tablet 5 mg PO Q8H atorvastatin 80 mg Tablet 80 mg PO DAILY metoclopramide HCl [Reglan] 10 mg tablet 10 mg PO Q6H PRN (Reason: NAUSEA AND VOMTING ) Qty: 20 0RF Emgality Syringe 120 mg/mL syringe 120 mg subcut Q30D Patient Comments: END OF MONTH trazodone 50 mg tablet 50 - 100 mg PO QHS gabapentin 300 mg capsule 300 mg PO TID naratriptan 2.5 mg tablet 2.5 mg PO BID PRN (Reason: migraines) Rx Instructions: can repeat dose, two hours after first dose taken. do not exceed more than two doses in 24 hours. fluticasone propionate 50 mcg/actuation spray,suspension 2 spray INTRANASAL Q12H Patient Comments: [NO ORIGINAL SIG] tramadol 50 mg tablet 50 mg PO TID levothyroxine 200 mcg tablet 200 mcg PO DAILY valsartan 160 mg tablet 160 mg PO BID citalopram 40 mg tablet 40 mg PO DAILY isosorbide mononitrate 30 mg tablet extended release 24 hr 30 mg PO DAILY Qty: 30 11RF Primary Care Provider: Nasreen Sutton Referrals: Nasreen Sutton MD [Primary Care Provider] - 5-7 Days Print Language: Senegalese Disposition Disposition: Home, Self Care
[2024-03-01] MEDS: 0.9% Normal Saline (1000mL) 1,000 ML 1000 ML IV (11:23)
[2024-03-01 12:09] VITALS: BP 142/79; PULSE 82; RESP 16; O2SAT 97
--- NOTE | 2024-03-01 12:15 | RAD_ITS ---
INDICATION: Injury/Pain EXAMINATION/TECHNIQUE: X-RAY - RIGHT XR Ankle Min 3 Views 3 VIEWS COMPARISON: No relevant prior comparison study available FINDINGS: SOFT TISSUES: No soft tissue swelling or gas. No radiopaque foreign body. BONES/JOINTS: No acute fracture or subluxation.. Plantar calcaneal spur. Preservation of the joint space.. No sclerotic or destructive changes observed. RAD/Ankle min 3 Views IMPRESSION: No evidence of acute fracture. Electronically Signed: Fredrick Sharpe MD at 13:09 EST ,
[2024-03-01 12:24] LABS: Absolute Neutrophil Count 8.6 X10^3/uL (2.0-7.7); Basophil# 0.08 X10^3/uL; Basophil% 0.7 % (0-1); Eosinophil# 0.44 X10^3/uL; Eosinophils% 3.6 % (0-5); Hematocrit 36.4 % (37-47); Hemoglobin 10.8 g/dL (12.0-15.0); Lymphocyte % 17.1 % (19-41); Mean Corp Hgb Conc 29.7 g/dL (32-36); Mean Corpuscular Hgb 28.5 pg (27.0-32.0); Mean Platelet Vol. 9.8 fl (6.2-12.0); Monocyte# 1.02 X10^3/uL; Monocyte% 8.3 % (0-10); NRBC Flagged by Analyzer 0 % (0-5); Neutrophil # 8.56 X10^3/uL (2.7-7.7); Neutrophil % 69.7 % (47-70); Platelet Count 318 K/mm3 (150-450); RBC Distribution Width CV 18.3 % (11.6-14.6); RBC Distribution Width SD 64.8 fl (35.1-43.9); Red Blood Count 3.79 M/mm3 (4.2-5.4); White Blood Count 12.3 K/mm3 (4.4-11.0)
[2024-03-01 13:10] LABS: Mucous, Urine 0 SEEN /hpf (<or=2+)
[2024-03-01 13:11] LABS: Anion Gap 7 (5-15); BUN 8 mg/dL (7-18); BUN/Creat Ratio 6.8 RATIO (10-20); Calcium,Total 9.3 mg/dL (8.5-10.1); Chloride 106 mmol/L (98-107); Creatinine, Serum 1.17 mg/dL (0.55-1.02); EST Glomerular Filtration Rate 51 mL/min (>60); Est Glom Filt Rate - Afr Amer 62 mL/min (>60); Estimated Creatinine Clearance 77.48 ml/min; Glucose 107 mg/dL (74-106); Potassium 4.4 mmol/L (3.5-5.1); Sodium Level 139 mmol/L (136-145)
[2024-03-01 13:17] LABS: Color, Urine Yellow (Yellow); Glucose, Dipstick Normal (Normal); Ketone-Dipstick Negative (Negative); Leukocyte Esterase-Dipstick 500 /ul (Negative); Nitrite-Dipstick Negative (Negative); Occult Blood-Urine 10 /ul (Negative); Protein-Dipstick Negative (Negative); Urine Bilirubin Dipstick Negative (Negative); Urine Clarity Clear (Clear); Urine Urobilinogen Normal (Normal); Urine pH 6.5 (5.0 - 8.0)
[2024-03-01 14:00] VITALS: BP 133/78; PULSE 85; RESP 15; O2SAT 96
[2024-03-01] MEDS: Acetaminophen 325 MG Tablet 650 MG PO (14:09)
--- NOTE | 2024-03-01 14:09 | CM.ED ---
Social Work SW introduced self to patient, explained role in hospital and reason for visit. Patient states she came into the ER due to a fall two days ago, that today she felt weak and sick. Patient often stays with her mother and admits that she had been at her mothers house for the last two nights but was supposed to go home today, however she decided she wasnt able to be on her own and called the squad. Patient did state to SW that if she knew how cold the room would feel that she would have stayed home and waited to see her PCP on Tuesday. SW talked with patient about reasons to come to the ER versus her PCP or urgent care, patient voiced understanding. When asked if patient followed through with her counseling appointment, patient stated she cancelled it because she got her appointment days wrong. Patient agreed to call and reschedule her appointment for counseling. Patient states that her [facility] functional tester calls every week and she finds this to be helpful. SW offered to make a referral to CCN, patient agreed to same. Order written for CCN assessment. SW spoke with patient regarding ways to increase healthy living , patient states that she tries to walk and eat healthy. Patient refuses information on the [employer] house or [employer], stating she does not want to attend programming. No other needs identified. Nicolette Hall, POURED PIPE MAKER, LIME VAT TENDER
[2024-03-01 14:13] LABS: Bacteria 3+ /hpf (None Seen); Red Blood Cells-Urine 0-5 SEEN /hpf (0-5); Squamous Epithelial Cells - UA 5-10 SEEN /hpf (5-10); White Blood Cells 10-25 SEEN /hpf (0-5)
--- NOTE | 2024-03-01 14:35 | CCN.REFER ---
PATIENT DOES NOT QUALIFY FOR CCN ANYMORE. SHE WAS IN OUR PROGRAM FOR A VERY LONG TIME, AND NO GOALS WERE MET.
[2024-03-01] MEDS: Cephalexin 500 MG Capsule PO (14:36)
[2024-03-01 14:39] VITALS: BP 132/74; PULSE 75; RESP 16; TEMP 36.9; O2SAT 96
== END 2024-03-01 14:40 | disposition home or self-care (01) ==
PROVIDERS: Emergency Provider Emergency Medicine; PCP Family Medicine; Visit Provider Emergency Medicine
DX: S93.401A Sprain of unspecified ligament of right ankle, initial encounter (principal); J44.9 Chronic obstructive pulmonary disease, unspecified; W18.39XA Other fall on same level, initial encounter; N39.0 Urinary tract infection, site not specified; I12.9 Hypertensive chronic kidney disease with stage 1 through stage 4 chronic kidney disease, or unspecified chronic kidney disease; N18.9 Chronic kidney disease, unspecified; E78.00 Pure hypercholesterolemia, unspecified; Z79.51 Long term (current) use of inhaled steroids; Z79.899 Other long term (current) drug therapy
CPT/HCPCS: 73610; 80048; 81001; 85025; 87077; 87086; 87088; 87186; 87631; 96360; 99285; A4216

== ENCOUNTER 2024-03-15 12:37 | Emergency (ER) | payer MEDICARE, MEDICAID, SELFPAY ==
[2024-03-15 12:38] VITALS: BP 138/90; PULSE 80; RESP 18; TEMP 36.6; O2SAT 94; BMI 51.8
--- NOTE | 2024-03-15 13:04 | CT_ITS ---
STUDY: CT BRAIN WITHOUT CONTRAST REASON FOR EXAM: Female, 53 years old. headache RADIATION DOSAGE (If Supplied By Facility): CTDIvol = ( 44.99 ) mGy, DLP = ( 796.11 ) mGycm TECHNIQUE: Transaxial CT imaging of the brain was performed without administration of intravenous contrast material. Individualized dose optimization techniques were used for this CT. COMPARISON: No relevant priors. FINDINGS: Normal soft tissue structures. Normal calvarium. Normal size ventricles and extra-axial spaces for the patient''s age. Normal white matter tracts of the cerebral hemispheres. Normal basal ganglia and thalami. Normal brainstem. Normal cerebellum. There is no intracranial hemorrhage. There are no findings of an acute ischemic infarction. Normal visualized paranasal sinuses. CT/Brain/Head without Contrast IMPRESSION: No acute intracranial pathology of the brain. Electronically Signed: Roscoe Angelo DO at 16:48 EST ,
--- NOTE | 2024-03-15 13:06 | CT_ITS ---
STUDY: CT ABDOMEN AND PELVIS WITHOUT CONTRAST REASON FOR EXAM: Female, 53 years old. no bm for 2 weeks RADIATION DOSAGE (If Supplied By Facility): CTDIvol = ( 13.75 ) mGy, DLP = ( 1310.98 ) mGycm TECHNIQUE: Transaxial images were obtained from the dome of the diaphragm to the symphysis pubis without oral contrast, and without intravenous contrast. Sagittal and coronal images were reconstructed. Individualized dose optimization techniques were used for this CT. COMPARISON: None. FINDINGS: The visualized lung bases are unremarkable. The visualized portions of the heart are within normal limits. Normal liver. Normal gallbladder and extrahepatic biliary system. Normal spleen. Normal pancreas. Normal bilateral adrenal glands. Bilateral parapelvic cysts in the kidneys. Normal visualized stomach. Normal small intestine. Mild retention in the colon. The appendix is not visualized. Calcified abdominal aorta. Normal inferior vena cava. Normal retroperitoneum. Normal urinary bladder. Normal abdominal wall. Normal osseous structures. CT/Abdomen/Pelvis without Cont IMPRESSION: Colonic fecal retention. Bilateral parapelvic cysts in the kidneys. Electronically Signed: Roscoe Angelo DO at 16:58 EST Reading Location ID and State: [facility] / [place] Tel [phone], Service support ,
--- NOTE | 2024-03-15 13:07 | EX.ED.DYSGE1 ---
HPI History of Present Illness Chief Complaint: General Illness Onset/Context/Timing Onset: Days Context: Gradual Onset Timing: Continuous Current Severity: Mild Maximum Severity: Mild Narrative Narrative: 53-year-old female states that she has a known right eye ulcer that she is being cared for by [facility]. She been placing medication in her eye. Since she has not felt well over the last couple weeks. She has had nausea. A headache. Denies any fall or head trauma. States she has not had a bowel movement for 1 to 2 weeks. Patient wears glasses not contacts. She did have prior eye surgery in the past due to cataracts and lens replacement. She denies any fever. She denies any dysuria. She denies any vomiting. Prior similar symptoms: Yes Recent Illness/Hospitalization: No PFSH PFS Medical History Kidney failure MARYANA (acute kidney injury) Fatigue MARYANA (acute kidney injury) Walker as ambulation aid Ambulates with cane Low iron History of renal disease High cholesterol DVT (deep venous thrombosis) PONV (postoperative nausea and vomiting) Stroke/cerebrovascular accident Sleep apnea Fall Cardiology follow-up encounter Scalp hematoma Pulmonary embolism Post-menopausal Thyroid disease Injury of head and neck Dietary restriction Difficulty swallowing BiPAP (biphasic positive airway pressure) dependence COPD (chronic obstructive pulmonary disease) Shortness of breath on exertion Leg cramps History of pain when walking History of edema History of echocardiogram History of stress test Syncope Abnormal glucose Noncompliance DAVY treated with BiPAP UTI (urinary tract infection) Vitamin D deficiency Restless leg syndrome Vitamin B12 deficiency Iron deficiency anemia History of chronic back pain Wears glasses Arthritis Non-smoker Hydronephrosis Depression Anemia Migraine headache Chronic kidney disease Diabetes mellitus Gout Celiac disease Hyperlipidemia GERD (gastroesophageal reflux disease) Dyspnea on exertion Chest pain Hypersomnia Cardiac murmur Microcytic anemia Hypertension Morbid obesity with BMI of 40.0-44.9, adult Asthma Hypothyroidism Anxiety Home Medications ?Medication ?Instructions ?Recorded ?Last Taken ?Type citalopram 40 mg tablet 40 mg PO DAILY DEPRESSION/ANXIETY 07/27/19 09/30/23 History budesonide-formoterol HFA 160 2 puff inhalation BID COPD 04/02/20 09/30/23 History mcg-4.5 mcg/actuation aerosol inhaler (Symbicort) metoclopramide HCl 10 mg tablet 10 mg PO Q6H PRN NAUSEA AND 11/10/23 Unknown Rx (Reglan) VOMTING #20 tabs atorvastatin 80 mg tablet 80 mg PO DAILY CHOLESTEROL 02/10/23 09/30/23 History cyclobenzaprine 5 mg tablet 5 mg PO Q8H MUSCLE SPASMS 02/10/23 09/30/23 History galcanezumab-gnlm 120 mg/mL 120 mg subcut Q30D migraines 07/29/23 Unknown History subcutaneous syringe (Emgality) trazodone 50 mg tablet 50 - 100 mg PO QHS SLEEP 07/29/23 09/30/23 History gabapentin 300 mg capsule 300 mg PO TID pain 09/30/23 09/30/23 History naratriptan 2.5 mg tablet 2.5 mg PO BID PRN migraines 10/01/23 Unknown History isosorbide mononitrate 30 mg 30 mg PO DAILY HEART #30 tabs 10/18/23 Unknown Rx tablet,extended release 24 hr ezetimibe 10 mg tablet (Zetia) 10 mg PO QDAY cholesterol #30 tabs 11/28/23 Unknown Rx fluticasone propionate 50 2 spray intranasal Q12H allergies 01/20/24 Unknown History mcg/actuation nasal spray,suspension levothyroxine 200 mcg tablet 200 mcg PO DAILY thyroid 01/20/24 Unknown History tramadol 50 mg tablet 50 mg PO TID pain 01/20/24 Unknown History valsartan 160 mg tablet 160 mg PO BID blood pressure 01/20/24 Unknown History cephalexin 500 mg capsule 500 mg PO Q6 #12 CAPSULES 03/01/24 Unknown Rx sulfamethoxazole 800 1 tab PO BID 7 days #14 tabs 03/15/24 Unknown Rx mg-trimethoprim 160 mg tablet (Bactrim DS) Allergy/AdvReac Type Severity Reaction Status Date / Time hydrochlorothiazide AdvReac Intermediate Contributes Verified 03/15/24 12:38 to gout naproxen (From Naprosyn) AdvReac Intermediate Nausea Verified 03/15/24 12:38 aspirin AdvReac Nausea Verified 03/15/24 12:38 Family History Father , Age 72 Hypertension Mother CAD (coronary artery disease) Myocardial infarction, Onset Age: 55 Hypertension Sister CAD (coronary artery disease) Brother Cancer Surgical History History of cardiac catheterization History of History of carpal tunnel surgery of right wrist History of carpal tunnel surgery of left wrist Hx of cystoscopy History of left heart catheterization (11/11/20) history of uterine ablation Social History household members: none housing: apartment Smoking Status: Never smoker alcohol intake: never substance use type: does not use caffeine: No ROS ROS ED ROS Narrative Malaise. Generalized weakness. Nausea. Constipation. Constitutional Constitutional ED: Denies chills or fever(s) Eyes Eyes: Reports other Details: Right eye pain due to corneal ulcer. ; Denies blurry vision ENT ENT ED: Denies ear pain Cardiovascular Cardiovascular: Denies chest pain Respiratory/Chest Respiratory/Chest: Denies cough Gastrointestinal Gastrointestinal: Reports constipation and nausea; Denies abdominal pain, diarrhea, melena or vomiting Genitourinary Genitourinary ED: Denies dysuria or hematuria Musculoskeletal Musculoskeletal: Denies arthralgias Integumentary Denies abscess Neurologic Neurologic: Denies headache(s) Psychiatric Psychiatric: Denies anxiety or depression Endocrine Endocrinology: Denies cold intolerance or heat intolerance Hematologic/Lymphatic Hematologic/Lymphatic: Reports none Allergic/Immunologic Allergic/Immunologic ED: Denies mouth swelling, tongue swelling or urticaria EXAM Physical Exam Narrative Exam Narrative: 53-year-old female sitting upright in bed. Vital signs are stable afebrile. No one else present in room. Pulse ox 94% on room air no hypoxia. H EENT exam right eye is a corneal ulcer is injected. The lids are mildly swollen right eye. Extra motions are intact. Left eye is unremarkable. Dry mucous membranes. Neck nontender no lymphadenopathy. Lungs clear to auscultation bilaterally. Heart regular rhythm rate about 80 no murmur. Chest wall nontender. Abdomen soft no peritoneal signs. Nontender. Obese. No hernia or mass. No pulsatile mass. No obstruction. Moving all 4 extremities. Nontender. No deformity. Back nontender. Neurologically she is awake alert. Answering questions following commands. No focal motor deficit Const Vital Signs: 03/15/24 12:38 03/15/24 14:38 03/15/24 14:50 Temperature 97.8 F Temperature Source Oral Pulse Rate 80 82 Respiratory Rate 18 22 H Respiratory Effort Normal Respiratory Pattern Normal Blood Pressure 138/90 H 149/82 H Blood Pressure Mean 106 104 Pulse Ox 94 95 Oxygen Delivery Method Room Air Room Air 03/15/24 16:00 Temperature Temperature Source Pulse Rate 87 Respiratory Rate 19 H Respiratory Effort Respiratory Pattern Blood Pressure 138/77 H Blood Pressure Mean 97 Pulse Ox 95 Oxygen Delivery Method Room Air Positive well nourished, well developed and obese; Negative for cachectic, contractures or unkempt General Appearance ED: well developed and NAD; Negative for unkempt, cachectic, contractures, cyanotic, diaphoretic or pallor Nutritional Appearance: obese; Negative for cachectic HEENT Reports dry mucous membranes Negative for trauma or tenderness Mouth ED: Yes dry mucous membranes Mouth: dry mucous membranes Eyes PERRL and EOMs intact bilaterally Eyes Narrative: Right eye injected. Corneal ulcer. Mild swelling of the upper and lower lid on the right. No significant discharge. Injected. Neck no lymphadenopathy, supple and no JVD Chest Wall inspection of chest normal and palpation of chest normal Resp normal respiratory effort and clear to auscultation bilaterally Effort and Inspection: Negative for retractions Auscultation: Negative for rales, rhonchi, wheezes or diminished lung sounds Cardio regular rate, regular rhythm, S1 normal heart sound, S2 normal heart sound and no murmurs GI normal to inspection, nondistended, normoactive bowel sounds, non-tender, non-distended and no masses Palpation: soft; Negative for tender, guarding, mass or rebound tenderness present Back/Spine no CVA tenderness General Back: Negative for CVA tenderness Cervical Spine: Negative for cervical spine tenderness Thoracic Spine / Upper Back: Negative for thoracic spinal tenderness or paraspinal muscle tenderness Lumbar Spine / Lower Back: Negative for lumbar spinal tenderness Extremity normal to inspection General Extremety ED: Negative for tenderness Neuro oriented x3 and CN's II-XII intact bilaterally Sensorium / Orientation: alert; Negative for orientation impaired, lethargic or stuporous Motor Exam: strength 5/5 throughout Psych mental status grossly normal Appearance: Negative for unkempt Attitude: No agitated Mood & Affect: Negative for depressed Skin no rashes or lesions noted and no wounds General Skin Exam: Negative for jaundice or pallor Lesions: No lesion noted Rashes: No rashes noted Trauma: Negative for abrasion Wounds: Negative for wounds noted MDM MDM MDM Narrative Medical decision making narrative: 53-year-old female generalized malaise. Corneal ulcer and headache. CAT scan of her brain will be obtained. Screening labs and a UA. IV fluids for her possible dehydration. CAT scan of her head and abdomen. Patient doing well on repeat exam at 5:10 PM. CAT scan of the abdomen is consistent constipation. CAT scan of the brain shows no acute pathology. She is currently resting comfortably and is receiving Tylenol for her headache. We are awaiting her microscopic UA. For definitive she does have a UA returned. It was positive nitrites. 25-50 white cells and 1+ bacteria. Culture sent. Should be treated for UTI. Placed on Bactrim DS p.o. twice daily for 7 days. Patient is comfortable being discharged to home. History & Record Review Discussion w/independent historian: Patient Additional record(s) reviewed:: Prior inpatient record, Prior outpatient record, Prior ED visit and Prior labs Lab Data Attestation: I reviewed the patient's lab results. Lab results narrative: CBC shows a white count 13.0. H&H 11.8 and 38. Platelets 318. Electrolytes show gap 7. BUN is 6 creatinine 1.1. Glucose 109. Liver enzymes are unremarkable except for an alkaline phosphatase to 124. Labs are her baseline when compared to prior lab work. Repeat exam patient doing well at 4:52 PM. Awake alert. Family present in the room. The right corneal ulcer is being evaluated and she has been seen multiple times by ophthalmology for it. She has a follow-up appointment. Her labs are basically her baseline. We are awaiting the CT results. If the CTs do not show anything significant I suspect should be discharged home. She is going to be turned over to the afternoon physician to check the CAT scan results of the urinalysis. Labs: Laboratory Results - last 24 hr 03/15/24 03/15/24 15:12 16:46 WBC 13.0 H RBC 4.01 L Hgb 11.8 L Hct 38.1 MCV 95.0 MCH 29.4 MCHC 31.0 L RDW Std Deviation 61.4 H RDW Coeff of Alfredo 17.5 H Plt Count 318 MPV 10.2 Immature Gran % (Auto) 0.500 Neut % (Auto) 75.0 H Lymph % (Auto) 13.9 L [place] % (Auto) 5.4 Eos % (Auto) 4.5 Baso % (Auto) 0.7 Absolute Neuts (auto) 9.8 H Absolute Lymphs (auto) 1.81 Nucleated RBC % 0 Sodium 138 Potassium 3.7 Chloride 106 Carbon Dioxide 25.0 Anion Gap 7 BUN 6 L Creatinine 1.12 H Estim Creat Clear Calc 80.35 Est GFR (MDRD) Af Amer 65 Est GFR (MDRD) Non-Af 54 L BUN/Creatinine Ratio 5.4 L Glucose 109 H Calcium 9.1 Total Bilirubin 0.40 AST 20 ALT 15 Alkaline Phosphatase 124 H Total Protein 7.4 Albumin 3.0 L Globulin 4.4 H Albumin/Globulin Ratio 0.7 L Urine Color Yellow Urine Clarity Cloudy Urine pH 6.0 Ur Specific [place] 1.010 Urine Protein Negative Urine Glucose (UA) Normal Urine Ketones Negative Urine Occult Blood 150 H Urine Nitrite Positive H Urine Bilirubin Negative Urine Urobilinogen Normal Ur Leukocyte Esterase 100 H Urine RBC 0-5 SEEN Urine WBC 25-50 SEEN Ur Squamous Epith Cells 0-5 SEEN Urine Bacteria 1+ Urine Mucus 0 SEEN Radiography Chest X-Ray - ED: 1 View, Read by ED Physician, Read by Radiologist, Normal, Mediastinum, Bony Structures, No Acute Disease, Chronic Changes, Cardiomegaly and - (Chronically elevated right hemidiaphragm.) Diagnostic Testing: Clinical Impression(s) from Imaging Studies Brain CT 03/15/24 13:04 IMPRESSION: No acute intracranial pathology of the brain. Electronically Signed: Roscoe Angelo DO at 16:48 EST , Abdomen/Pelvis CT 03/15/24 13:06 IMPRESSION: Colonic fecal retention. Bilateral parapelvic cysts in the kidneys. Electronically Signed: Roscoe Angelo DO at 16:58 EST , Chest X-Ray 03/15/24 13:20 IMPRESSION: Moderate cardiomegaly. Stable elevation of the right hemidiaphragm. No acute infiltrate is seen. Electronically Signed: Seun Vieira MD at 13:41 EST , Chest x-ray, portable, single view, interpreted by by myself and radiologist. Shows chronically elevated right hemidiaphragm seen on prior films. Chronic cardiomegaly. No pneumonia. No effusion. Rhythm Strip Rhythm Strip: Sinus Rhythm Rate: 78 Ectopy: None EKG Initial EKG: Attestation: I personally reviewed and interpreted this EKG as follows: Interpretation: Sinus Rhythm and No Acute Injury Pattern Comments: Normal sinus rhythm rate of 78 no acute signs of MN or ischemia. Discharge Plan Triage Chief Complaint: General Illness ED Provider: Pipo Merritt Dx/Rx/DC Orders Clinical Impression: Chronic malaise, Headache, History of corneal ulcer, Constipation, Cystitis Instructions: ED Constipation (Adult), ED Cystitis Female Adult Prescriptions: New sulfamethoxazole-trimethoprim [Bactrim DS] 800-160 mg tablet 1 tab PO BID 7 Days Qty: 14 0RF No Action budesonide-formoterol [Symbicort] 160-4.5 mcg/actuation HFA aerosol inhaler 2 puff INHALATION BID ezetimibe [Zetia] 10 mg tablet 10 mg PO QDAY Qty: 30 11RF cyclobenzaprine 5 mg tablet 5 mg PO Q8H atorvastatin 80 mg Tablet 80 mg PO DAILY metoclopramide HCl [Reglan] 10 mg tablet 10 mg PO Q6H PRN (Reason: NAUSEA AND VOMTING ) Qty: 20 0RF cephalexin 500 mg capsule 500 mg PO Q6 Qty: 12 0RF Emgality Syringe 120 mg/mL syringe 120 mg subcut Q30D Patient Comments: END OF MONTH trazodone 50 mg tablet 50 - 100 mg PO QHS gabapentin 300 mg capsule 300 mg PO TID naratriptan 2.5 mg tablet 2.5 mg PO BID PRN (Reason: migraines) Rx Instructions: can repeat dose, two hours after first dose taken. do not exceed more than two doses in 24 hours. fluticasone propionate 50 mcg/actuation spray,suspension 2 spray INTRANASAL Q12H Patient Comments: [NO ORIGINAL SIG] tramadol 50 mg tablet 50 mg PO TID levothyroxine 200 mcg tablet 200 mcg PO DAILY valsartan 160 mg tablet 160 mg PO BID citalopram 40 mg tablet 40 mg PO DAILY isosorbide mononitrate 30 mg tablet extended release 24 hr 30 mg PO DAILY Qty: 30 11RF Primary Care Provider: Nasreen Sutton Referrals: Nasreen Sutton MD [Primary Care Provider] - 3-5 Days Activity Restrictions/Additional Instructions: GoLytely for your constipation. Drink a 8 to 10 ounce glass every hour until you have a bowel movement. Plenty of fruits, vegetables and fiber to help you with your constipation. Follow-up with your finisher fine diamond dies neck scheduled appointment for your right corneal ulcer. Print Language: Yoruba Disposition Disposition: Home, Self Care
--- NOTE | 2024-03-15 13:20 | RAD_ITS ---
STUDY: X-RAY CHEST REASON FOR EXAM: Female, 53 years old. Nausea and headache. Transvenous. TECHNIQUE: Single AP portable view of the chest. COMPARISON: Comparison is made with prior study dated February 17, 2024. FINDINGS: Stable elevation of the right hemidiaphragm. The lungs are clear and expanded. There is no demonstrated pleural abnormality. There is moderate cardiac enlargement. Normal mediastinum and kumar. Normal visualized pulmonary arteries. Normal visualized aortic arch and descending thoracic aorta. Normal visualized thoracic spine. Normal visualized ribs, clavicles, and shoulders. There is no demonstrated abnormality of the visualized soft tissue structures of the upper abdomen. RAD/Chest 1 View (Portable) IMPRESSION: Moderate cardiomegaly. Stable elevation of the right hemidiaphragm. No acute infiltrate is seen. Electronically Signed: Seun Vieira MD at 13:41 EST ,
[2024-03-15] MEDS: 0.9% Normal Saline (1000mL) 1,000 ML 1000 ML IV (14:04)
[2024-03-15] MEDS: Ondansetron 4 MG/2 ML Vial IV (14:18)
[2024-03-15] MEDS: Morphine 4 MG/ML Syringe IV (14:18)
[2024-03-15 14:38] VITALS: BP 149/82; PULSE 82; RESP 22; O2SAT 95
[2024-03-15 15:19] LABS: Absolute Lymphocyte Count 1.81 X10^3/uL (0.83-4.51); Absolute Neutrophil Count 9.8 X10^3/uL (2.0-7.7); Basophil# 0.09 X10^3/uL; Basophil% 0.7 % (0-1); Eosinophil# 0.58 X10^3/uL; Eosinophils% 4.5 % (0-5); Hematocrit 38.1 % (37-47); Hemoglobin 11.8 g/dL (12.0-15.0); Lymphocyte # 1.81 X10^3/ul (0.83-4.51); Lymphocyte % 13.9 % (19-41); Mean Corpuscular Hgb 29.4 pg (27.0-32.0); Mean Platelet Vol. 10.2 fl (6.2-12.0); Monocyte# 0.71 X10^3/uL; Monocyte% 5.4 % (0-10); NRBC Flagged by Analyzer 0 % (0-5); Neutrophil # 9.77 X10^3/uL (2.7-7.7); Platelet Count 318 K/mm3 (150-450); RBC Distribution Width CV 17.5 % (11.6-14.6); RBC Distribution Width SD 61.4 fl (35.1-43.9); Red Blood Count 4.01 M/mm3 (4.2-5.4)
[2024-03-15 15:50] LABS: ALB/GLOB Ratio 0.7 RATIO (0.9-2.4); AST(SGOT) 20 U/L (15-37); Alanine Aminotransfer ALT/SGPT 15 U/L (13-56); Alkaline Phosphatase 124 U/L (45-117); Anion Gap 7 (5-15); BUN 6 mg/dL (7-18); BUN/Creat Ratio 5.4 RATIO (10-20); Calcium,Total 9.1 mg/dL (8.5-10.1); Chloride 106 mmol/L (98-107); Creatinine, Serum 1.12 mg/dL (0.55-1.02); EST Glomerular Filtration Rate 54 mL/min (>60); Est Glom Filt Rate - Afr Amer 65 mL/min (>60); Estimated Creatinine Clearance 80.35 ml/min; Globulin 4.4 g/dL (2.2-4.2); Glucose 109 mg/dL (74-106); Potassium 3.7 mmol/L (3.5-5.1); Protein, Total 7.4 g/dL (6.4-8.2); Sodium Level 138 mmol/L (136-145)
[2024-03-15 16:00] VITALS: BP 138/77; PULSE 87; RESP 19; O2SAT 95
[2024-03-15 16:51] LABS: Mucous, Urine 0 SEEN /hpf (<or=2+)
[2024-03-15 16:55] LABS: Color, Urine Yellow (Yellow); Glucose, Dipstick Normal (Normal); Ketone-Dipstick Negative (Negative); Leukocyte Esterase-Dipstick 100 /ul (Negative); Nitrite-Dipstick Positive (Negative); Occult Blood-Urine 150 /ul (Negative); Protein-Dipstick Negative (Negative); Urine Bilirubin Dipstick Negative (Negative); Urine Clarity Cloudy (Clear); Urine Urobilinogen Normal (Normal)
[2024-03-15 17:12] LABS: Red Blood Cells-Urine 0-5 SEEN /hpf (0-5); Squamous Epithelial Cells - UA 0-5 SEEN /hpf (5-10)
[2024-03-15 17:13] LABS: White Blood Cells 25-50 SEEN /hpf (0-5)
[2024-03-15 17:14] LABS: Bacteria 1+ /hpf (None Seen)
[2024-03-15] MEDS: Smz/Tmp Ds Tablet 1 TABLET PO (17:33)
[2024-03-15] MEDS: Acetaminophen 500 MG Tablet 1000 MG PO (17:33)
[2024-03-15] MEDS: Electrolyte Solution/Peg's 4000 ML 1000 ML PO (17:47)
--- NOTE | 2024-03-15 18:02 | CM.ED ---
Social Work SW met with patient, patient stating she was in the ED because she does not feel well, her eye is scratched and she has not been able to go to the bathroom for 2 weeks. Patient did remember meeting with SW last time she was in the ER, SW asked about follow up appointments that were discussed at that time. Patient stated she had not contacted anyone for a counseling appointment because she had not been feeling well enough, stating that all she is doing is sleeping. SW asked if anyone from [facility] had been in contact, patient stated they had not. SW to follow up on [facility] referral. Nicolette Hall, PLEXIGLAS FORMER, OPTICAL ENGINEER
--- NOTE | 2024-03-16 10:07 | CM.ED ---
Social work Per secure email handoff from Nicolette GORDON, this SW was asked to follow up on patient's referral to CCN. Per secure email from [facility] ([place] [facility]) and notes in [facility], patient is no longer eligible for CCN due to past involvement in the program with no patient response and not meeting patient goals. Patricia Holt, SEXTON HELPER, SUPERVISOR DRYING AND WINDING
== END 2024-03-15 17:48 | disposition home or self-care (01) ==
PROVIDERS: Emergency Provider Emergency Medicine; PCP Family Medicine; Referring Provider Emergency Medicine; Visit Provider Emergency Medicine
DX: R53.81 Other malaise (principal); J44.9 Chronic obstructive pulmonary disease, unspecified; K59.00 Constipation, unspecified; I12.9 Hypertensive chronic kidney disease with stage 1 through stage 4 chronic kidney disease, or unspecified chronic kidney disease; E78.00 Pure hypercholesterolemia, unspecified; R51.9 Headache, unspecified; N30.90 Cystitis, unspecified without hematuria; Z79.51 Long term (current) use of inhaled steroids; Z79.899 Other long term (current) drug therapy

== ENCOUNTER → 2024-03-27 | Outpatient (CLI) | payer MEDICARE, MEDICAID, SELFPAY ==
[2024-03-27 11:07] LABS: Amphetamine Urine NEGATIVE (<1000 ng/mL); Barbiturate Urine VISTA NEGATIVE (< 200 ng/mL); Benzodiazepine Urine VISTA NEGATIVE (< 200 ng/mL); Cocaine Urine VISTA NEGATIVE (< 300 ng/mL); Ecstacy Urine VISTA NEGATIVE (< 500 ng/mL); Methadone Urine VISTA NEGATIVE (< 300 ng/mL); PCP Urine VISTA NEGATIVE (< 25 ng/mL); THC Urine VISTA POSITIVE (< 50 ng/mL); Vista UDS pH Range 5
== END | disposition home or self-care (01) ==
PROVIDERS: PCP Family Medicine; Referring Provider Anesthesiology Pain Medicine; Visit Provider Anesthesiology Pain Medicine
DX: F11.20 Opioid dependence, uncomplicated (principal)
CPT/HCPCS: 80307

== ENCOUNTER → 2024-03-30 | Outpatient (CLI) | payer MEDICARE, MEDICAID, SELFPAY | END | disposition home or self-care (01) | LOC: MFPLAB 10:24 | PROVIDERS: PCP Family Medicine; Referring Provider Family Medicine; Visit Provider Family Medicine | DX: E03.9 Hypothyroidism, unspecified (principal) | CPT/HCPCS: 36415; 84443 ==

== ENCOUNTER 2024-04-05 13:43 | Emergency (ER) | payer MEDICARE, MEDICAID, SELFPAY ==
[2024-04-05 13:44] VITALS: BP 165/110; PULSE 85; RESP 18; TEMP 37.2; O2SAT 93; BMI 51.4
--- NOTE | 2024-04-05 14:06 | RAD_ITS ---
EXAM: XR Chest, 1 View CLINICAL INDICATION: TECHNIQUE: Frontal view of the chest. COMPARISON: No relevant prior studies available. FINDINGS: LUNGS AND PLEURAL SPACES: Unremarkable. No consolidation. No pneumothorax. HEART: Unremarkable. No cardiomegaly. MEDIASTINUM: Unremarkable. Normal mediastinal contour. BONES/JOINTS: Unremarkable. No acute fracture. RAD/Chest 1 View (Portable) IMPRESSION: No acute cardiopulmonary process. Reading [facility]
--- NOTE | 2024-04-05 14:07 | EKG12_ITS ---
Test Reason : CP Blood Pressure : */* mmHG Vent. Rate : 84 BPM Atrial Rate : 84 BPM P-R Int : 154 ms QRS Dur : 84 ms QT Int : 338 ms P-R-T Axes : 47 1 -67 degrees QTcB Int : 399 ms Normal sinus rhythm Nonspecific ST and T wave abnormality Abnormal ECG When compared with ECG of 07-May-2024 08:27, Aberrant conduction is no longer Present Nonspecific T wave abnormality, worse in Anterolateral leads QT has shortened Confirmed by CHAR GONZALEZ, RADHA ([id number]), film editor supervisor ZANDER MAYER ([id number]) on 05/14/2024 11:43:26 AM Referred By: Jcarlos Anthony Confirmed By: RADHA PARDO MD
--- NOTE | 2024-04-05 14:23 | EX.ED.DYSGE1 ---
HPI History of Present Illness Chief Complaint: Anxiety Detail of Chief Complaint: Sharp stabbing central chest pain that started last evening at 2300 Informant: patient Onset/Context/Timing Onset: Yesterday Context: Sudden Onset Timing: Continuous Quality: Sharp and stabbing Location: Central chest Current Severity: Mild Maximum Severity: Severe Worsened by: Nothing Relieved by: Nothing Associated Symptoms Associated Symptoms: Shortness of breath Narrative Narrative: Patient is a 53-year-old female with a BMI of 51.4 and past medical history of sleep apnea, diastolic dysfunction, coronary disease, essential hypertension, COPD, GERD, diabetes mellitus who presents with sharp chest pain that has been persistent since onset. There are no alleviating or exacerbating factors. The only associated symptom of the shortness of breath. Patient states she has a history of PE. There is no record of PE through medical records at [facility]. This is concerning since patient's pulse ox was 87% on room air with good waveform. Patient does endorse intolerance to greasy fried foods. Is no family history cholelithiasis. Gallbladder has not been removed. She states this pain is different than her GERD pain. She denies fever or chills. She denies night sweats. She denies weight gain or weight loss. She denies rhinorrhea, congestion postnasal drainage. Denies sore throat. Denies ear pain. She denies cough. She does endorse swelling of her legs and does endorse symptoms consistent with claudication. The symptoms that are suggestive claudication are intermittent. There is no specific distance the patient is able to tell me. Patient denies black or maroon-colored stool. She denies urologic symptoms. Review of prior records indicates patient does have hypothyroidism. Prior similar symptoms: Yes (She states she does not know the cause.) Recent Illness/Hospitalization: No PFSH PFS Medical History Kidney failure MARYANA (acute kidney injury) Fatigue MARYANA (acute kidney injury) Walker as ambulation aid Ambulates with cane Low iron History of renal disease High cholesterol DVT (deep venous thrombosis) PONV (postoperative nausea and vomiting) Stroke/cerebrovascular accident Sleep apnea Fall [facility]iology follow-up encounter Scalp hematoma Pulmonary embolism Post-menopausal Thyroid disease Injury of head and neck Dietary restriction Difficulty swallowing BiPAP (biphasic positive airway pressure) dependence COPD (chronic obstructive pulmonary disease) Shortness of breath on exertion Leg cramps History of pain when walking History of edema History of echocardiogram History of stress test Syncope Abnormal glucose Noncompliance DAVY treated with BiPAP UTI (urinary tract infection) Vitamin D deficiency Restless leg syndrome Vitamin B12 deficiency Iron deficiency anemia History of chronic back pain Wears glasses Arthritis Non-smoker Hydronephrosis Depression Anemia Migraine headache Chronic kidney disease Diabetes mellitus Gout Celiac disease Hyperlipidemia GERD (gastroesophageal reflux disease) Dyspnea on exertion Chest pain Hypersomnia Cardiac murmur Microcytic anemia Hypertension Morbid obesity with BMI of 40.0-44.9, adult Asthma Hypothyroidism Anxiety Home Medications ?Medication ?Instructions ?Recorded ?Last Taken ?Type citalopram 40 mg tablet 40 mg PO DAILY DEPRESSION/ANXIETY 07/27/19 04/05/24 History budesonide-formoterol HFA 160 2 puff inhalation BID COPD 04/02/20 04/05/24 History mcg-4.5 mcg/actuation aerosol inhaler (Symbicort) metoclopramide HCl 10 mg tablet 10 mg PO Q6H PRN NAUSEA AND 01/07/23 Unknown Rx (Reglan) VOMTING #20 tabs atorvastatin 80 mg tablet 80 mg PO DAILY CHOLESTEROL 02/10/23 04/04/24 History cyclobenzaprine 5 mg tablet 5 mg PO Q8H MUSCLE SPASMS 02/10/23 04/05/24 History galcanezumab-gnlm 120 mg/mL 120 mg subcut Q30D migraines 07/29/23 Unknown History subcutaneous syringe (Emgality) trazodone 50 mg tablet 50 - 100 mg PO QHS SLEEP 07/29/23 04/04/24 History gabapentin 300 mg capsule 300 mg PO TID pain 09/30/23 04/05/24 History naratriptan 2.5 mg tablet 2.5 mg PO BID PRN migraines 10/01/23 Unknown History ezetimibe 10 mg tablet (Zetia) 10 mg PO QDAY cholesterol #30 tabs 11/28/23 04/05/24 Rx fluticasone propionate 50 2 spray intranasal Q12H allergies 01/20/24 Unknown History mcg/actuation nasal spray,suspension levothyroxine 200 mcg tablet 200 mcg PO DAILY thyroid 01/20/24 04/05/24 History tramadol 50 mg tablet 50 mg PO TID pain 01/20/24 04/05/24 History cephalexin 500 mg capsule 500 mg PO Q6 #12 CAPSULES 03/01/24 Unknown Rx sulfamethoxazole 800 1 tab PO BID 7 days #14 tabs 03/15/24 Unknown Rx mg-trimethoprim 160 mg tablet (Bactrim DS) isosorbide mononitrate 30 mg 30 mg PO DAILY HEART #30 tabs 03/30/24 04/05/24 Rx tablet,extended release 24 hr valsartan 160 mg tablet 160 mg PO BID blood pressure #180 03/30/24 04/05/24 Rx tabs Allergy/AdvReac Type Severity Reaction Status Date / Time hydrochlorothiazide AdvReac Intermediate Contributes Verified 04/05/24 13:49 to gout naproxen (From Naprosyn) AdvReac Intermediate Nausea Verified 04/05/24 13:49 aspirin AdvReac Nausea Verified 04/05/24 13:49 Family History Father , Age 72 Hypertension Mother CAD (coronary artery disease) Myocardial infarction, Onset Age: 55 Hypertension Sister CAD (coronary artery disease) Brother Cancer Surgical History History of cardiac catheterization History of History of carpal tunnel surgery of right wrist History of carpal tunnel surgery of left wrist Hx of cystoscopy History of left heart catheterization (11/11/20) history of uterine ablation Social History household members: none housing: apartment Smoking Status: Never smoker alcohol intake: never substance use type: does not use caffeine: No ROS ROS ED Constitutional Constitutional ED: Denies chills, fever(s), subjective, sweats or weight loss Eyes Eyes: Denies blurry vision or change in vision ENT ENT ED: Denies ear pain, rhinorrhea or sore throat Cardiovascular Cardiovascular: Reports chest pain; Denies orthopnea, palpitations, paroxysmal nocturnal dyspnea or racing heartbeat Respiratory/Chest Respiratory/Chest: Reports cough and dyspnea; Denies dyspnea on exertion, orthopnea, paroxysmal nocturnal dyspnea or sputum Gastrointestinal Gastrointestinal: Denies abdominal pain, diarrhea, melena, nausea or vomiting Genitourinary Genitourinary ED: Denies dysuria, hematuria or urinary frequency Musculoskeletal Musculoskeletal: Denies arthralgias, back pain or myalgias Integumentary Denies rash Neurologic Neurologic: Denies headache(s) or paresthesias Psychiatric Psychiatric: Denies anxiety or depression Hematologic/Lymphatic Hematologic/Lymphatic: Reports systems reviewed and no addt'l complaints, except as documented EXAM Physical Exam Const Vital Signs: 04/05/24 13:44 04/05/24 15:27 04/05/24 15:43 Temperature 98.9 F Temperature Source Oral Pulse Rate 85 63 Respiratory Rate 18 16 Blood Pressure 165/110 H 154/110 H Blood Pressure Mean 128 124 Pulse Ox 93 94 92 Oxygen Delivery Method Room Air Room Air Room Air Positive well nourished and well developed Constitutional Narrative: Blood pressure is elevated. As stated pulse ox when I entered the room was 87% with a good waveform. Patient's BMI is 51.4. General Appearance ED: well developed HEENT HEENT Narrative: Head is atraumatic normocephalic. Ears normal. Nares patent. Posterior pharynx out erythema or exudate. Uvula is midline. There is no deviation with protrusion. Eyes PERRL and EOMs intact bilaterally General Eye ED: Negative for pale conjunctiva or scleral icterus Neck no lymphadenopathy, supple and no JVD Chest Wall inspection of chest normal and palpation of chest normal Resp normal respiratory effort and clear to auscultation bilaterally Cardio regular rate, regular rhythm, S1 normal heart sound, S2 normal heart sound and no murmurs GI normal to inspection, nondistended, normoactive bowel sounds, non-tender, non-distended and no masses; Negative for hepatosplenomegaly GI Narrative: Negative clinical Mclean sign. Back/Spine no CVA tenderness Extremity Negative for normal to inspection Extremity Narrative: There is no discoloration. There is no leg vein distention. There is evidence of venous stasis dermatitis. There is also stigmata of peripheral vascular disease. General Extremety ED: Yes edema; Negative for tenderness or other findings General Extremity: edema; Negative for other findings Neuro oriented x3 and CN's II-XII intact bilaterally Sensorium / Orientation: alert Psych mental status grossly normal Skin No no rashes or lesions noted Skin Narrative: Dry skin and venous stasis dermatitis MDM MDM MDM Narrative Medical decision making narrative: Differential diagnosis is cardiac versus noncardiac. Cardiac would be cardiac ischemia doubt pericarditis or myocarditis. Noncardiac etiology may represent biliary disease, GERD, pulmonary embolus especially that she is hypoxic. Workup included EKG to evaluate for acute ischemia, chest x-ray to evaluate for pneumonia, pneumothorax or CHF. Blood work to assess for anemia, endorgan dysfunction, and acid-base status. Since pain has been constant for greater than 15 hours only 1 troponin was obtained. Lab Data Attestation: I reviewed the patient's lab results. Lab results narrative: CBC is unremarkable. D-dimer is normal. Lactate is normal. BNP is normal. D-dimer is normal. Competence of metabolic panel is unremarkable. Creatinine is slight elevated 1.11 with estimated GFR 55. Alkaline phosphatase slightly elevated 125. Labs: Laboratory Results - last 24 hr 04/05/24 04/05/24 14:33 14:35 WBC 10.9 RBC 4.10 L Hgb 12.0 Hct 38.5 MCV 93.9 MCH 29.3 MCHC 31.2 L RDW Std Deviation 57.0 H RDW Coeff of Alfredo 16.6 H Plt Count 293 MPV 10.7 Immature Gran % (Auto) 0.500 Neut % (Auto) 75.4 H Lymph % (Auto) 15.3 L Lipscomb % (Auto) 6.5 Eos % (Auto) 1.7 Baso % (Auto) 0.6 Absolute Neuts (auto) 8.2 H Absolute Lymphs (auto) 1.67 Nucleated RBC % 0 D-Dimer Quant (PE/DVT) 0.48 Sodium 139 Potassium 4.3 Chloride 103 Carbon Dioxide 28.0 Anion Gap 8 BUN 10 Creatinine 1.11 H Estim Creat Clear Calc 80.67 Est GFR (MDRD) Af Amer 66 Est GFR (MDRD) Non-Af 55 L BUN/Creatinine Ratio 9.0 L Glucose 104 Lactic Acid 1.5 Calcium 9.4 Total Bilirubin 0.70 AST 24 ALT 23 Alkaline Phosphatase 125 H Troponin I High Sens 10 B-Natriuretic Peptide 50.5 Total Protein 7.9 Albumin 3.4 Globulin 4.5 H Albumin/Globulin Ratio 0.8 L ABG Data ABG results: ABG 04/05/24 14:56 Specimen Type ART Sample Site R Radial pH 7.45 Bicarbonate Actual 31.5 H Total CO2 33 Base Excess 8 H O2 Saturation 91 L ABG pCO2 45.0 ABG pO2 58 L Justin Test Positive O2 Delivery Device Room Air Vent Mode Not entered Radiography Chest X-Ray - ED: 1 View, Read by ED Physician (Independent reviewed interpreted by me at 1532.), Unchanged, Heart (Borderline cardiomegaly), Lungs (Minimal chronic changes), Mediastinum, Bony Structures and No Acute Disease Diagnostic Testing: Clinical Impression(s) from Imaging Studies Chest X-Ray 04/05/24 14:06 IMPRESSION: No acute cardiopulmonary process. Reading Location: [facility] EKG Initial EKG: Attestation: I personally reviewed and interpreted this EKG as follows: Interpretation: Sinus Rhythm (Rate is 76. NC interval is 142 ms. QS duration 84 ms. QT duration 410 ms. [place] is normal. There is nonseptic changes read by the computer which in my opinion is artifact.) Treatment and Re-Evaluation :: I was informed at 1517 the patient was complaining of headache would like medication. 6 and 50 mg of Tylenol was ordered. Comments:: Patient was informed her workup is negative. Cause of her chest pain is unknown. Discharge Plan Triage Chief Complaint: Anxiety ED Provider: Jcarlos Anthony Dx/Rx/DC Orders Clinical Impression: Central chest pain, GERD (gastroesophageal reflux disease), Hyperlipidemia, Diabetes mellitus, CAD (coronary artery disease), Diastolic dysfunction, Acute dyspnea, Chronic kidney insufficiency Instructions: ED Chest Pain, Noncardiac, ED Chest Pain, Uncertain Cause Prescriptions: No Action budesonide-formoterol [Symbicort] 160-4.5 mcg/actuation HFA aerosol inhaler 2 puff INHALATION BID ezetimibe [Zetia] 10 mg tablet 10 mg PO QDAY Qty: 30 11RF cyclobenzaprine 5 mg tablet 5 mg PO Q8H atorvastatin 80 mg Tablet 80 mg PO DAILY metoclopramide HCl [Reglan] 10 mg tablet 10 mg PO Q6H PRN (Reason: NAUSEA AND VOMTING ) Qty: 20 0RF cephalexin 500 mg capsule 500 mg PO Q6 Qty: 12 0RF sulfamethoxazole-trimethoprim [Bactrim DS] 800-160 mg tablet 1 tab PO BID 7 Days Qty: 14 0RF Emgality Syringe 120 mg/mL syringe 120 mg subcut Q30D Patient Comments: END OF MONTH trazodone 50 mg tablet 50 - 100 mg PO QHS gabapentin 300 mg capsule 300 mg PO TID naratriptan 2.5 mg tablet 2.5 mg PO BID PRN (Reason: migraines) Rx Instructions: can repeat dose, two hours after first dose taken. do not exceed more than two doses in 24 hours. fluticasone propionate 50 mcg/actuation spray,suspension 2 spray INTRANASAL Q12H Patient Comments: [NO ORIGINAL SIG] tramadol 50 mg tablet 50 mg PO TID levothyroxine 200 mcg tablet 200 mcg PO DAILY citalopram 40 mg tablet 40 mg PO DAILY valsartan 160 mg tablet 160 mg PO BID Qty: 180 3RF isosorbide mononitrate 30 mg tablet extended release 24 hr 30 mg PO DAILY Qty: 30 11RF Primary Care Provider: Nasreen Sutton Referrals: Nasreen Sutton MD [Primary Care Provider] - 3-5 Days if not improving Print Language: [place] Disposition Disposition: Home, Self Care
[2024-04-05 14:49] LABS: Absolute Lymphocyte Count 1.67 X10^3/uL (0.83-4.51); Absolute Neutrophil Count 8.2 X10^3/uL (2.0-7.7); Basophil# 0.06 X10^3/uL; Basophil% 0.6 % (0-1); Eosinophil# 0.18 X10^3/uL; Eosinophils% 1.7 % (0-5); Hematocrit 38.5 % (37-47); Lymphocyte # 1.67 X10^3/ul (0.83-4.51); Lymphocyte % 15.3 % (19-41); Mean Corp Hgb Conc 31.2 g/dL (32-36); Mean Corpuscular Hgb 29.3 pg (27.0-32.0); Mean Corpuscular Volume 93.9 fL (81-99); Mean Platelet Vol. 10.7 fl (6.2-12.0); Monocyte# 0.71 X10^3/uL; Monocyte% 6.5 % (0-10); NRBC Flagged by Analyzer 0 % (0-5); Neutrophil # 8.21 X10^3/uL (2.7-7.7); Neutrophil % 75.4 % (47-70); Platelet Count 293 K/mm3 (150-450); RBC Distribution Width CV 16.6 % (11.6-14.6); White Blood Count 10.9 K/mm3 (4.4-11.0)
[2024-04-05 14:59] LABS: Allen Test Positive; Base Excess 8 mmol/L (-2 to +2); Bicarbonate 31.5 mmol/L (22-26); Blood Gas Specimen Type ART; Mode Not entered; O2 Delivery Device Room Air; PO2 58 mmHG (75-100); SITE R Radial; SO2 91 % (95-99); Total Carbon Dioxide 33 mmol/L; pH 7.45 (7.35-7.45)
[2024-04-05 15:22] LABS: Lactic Acid 1.5 mmol/L (0.4-1.9)
[2024-04-05] MEDS: Acetaminophen 325 MG Tablet 650 MG PO (15:26)
[2024-04-05 15:27] VITALS: O2SAT 94
[2024-04-05 15:28] LABS: D-Dimer Quantitative (DVT/PE) 0.48 FEU/ug/m (0.27-0.49)
[2024-04-05 15:32] LABS: BNP,B-Type NATRIURETIC PEPTIDE 50.5 pg/mL (0-100)
[2024-04-05 15:43] VITALS: BP 154/110; PULSE 63; RESP 16; O2SAT 92
[2024-04-05 16:24] LABS: ALB/GLOB Ratio 0.8 RATIO (0.9-2.4); AST(SGOT) 24 U/L (15-37); Alanine Aminotransfer ALT/SGPT 23 U/L (13-56); Albumin, Serum 3.4 g/dL (3.2-5.0); Alkaline Phosphatase 125 U/L (45-117); Anion Gap 8 (5-15); BUN 10 mg/dL (7-18); Calcium,Total 9.4 mg/dL (8.5-10.1); Chloride 103 mmol/L (98-107); Creatinine, Serum 1.11 mg/dL (0.55-1.02); EST Glomerular Filtration Rate 55 mL/min (>60); Est Glom Filt Rate - Afr Amer 66 mL/min (>60); Estimated Creatinine Clearance 80.67 ml/min; Globulin 4.5 g/dL (2.2-4.2); Glucose 104 mg/dL (74-106); Potassium 4.3 mmol/L (3.5-5.1); Protein, Total 7.9 g/dL (6.4-8.2); Sodium Level 139 mmol/L (136-145); Troponin-I HS 10 pg/mL (3.0-54.0)
[2024-04-05 17:13] VITALS: BP 164/109; PULSE 82; RESP 18; TEMP 36.6; O2SAT 95
== END 2024-04-05 17:14 | disposition home or self-care (01) ==
PROVIDERS: Emergency Provider Emergency Medicine; PCP Family Medicine; Referring Provider Emergency Medicine; Visit Provider Emergency Medicine
DX: R07.9 Chest pain, unspecified (principal); E11.22 Type 2 diabetes mellitus with diabetic chronic kidney disease; R06.02 Shortness of breath; K21.9 Gastro-esophageal reflux disease without esophagitis; I25.10 Atherosclerotic heart disease of native coronary artery without angina pectoris; E78.00 Pure hypercholesterolemia, unspecified; N18.9 Chronic kidney disease, unspecified; I12.9 Hypertensive chronic kidney disease with stage 1 through stage 4 chronic kidney disease, or unspecified chronic kidney disease; Z79.899 Other long term (current) drug therapy
CPT/HCPCS: 36600; 71045; 80053; 82803; 83605; 83880; 84484; 85025; 85379; 93005; 99285; A4216

== ENCOUNTER 2024-04-20 12:10 | Emergency (ER) | payer MEDICARE, MEDICAID, SELFPAY ==
[2024-04-20 12:11] VITALS: BP 191/119; PULSE 99; RESP 16; TEMP 36.1; O2SAT 96; BMI 48.9
--- NOTE | 2024-04-20 15:05 | EX.ED.VIS.EY ---
HPI History of Present Illness Chief Complaint: Eye Problem Detail of Chief Complaint: Right eye pain and inability to see for approximately 1 month Informant: patient Onset/Context/Timing Location: Right Eye Onset: Month(s) (1 month per patient) Context: Sudden Onset Timing: Continuous Current Severity: Moderate Maximum Severity: Moderate Worsened by: Nothing Relieved by: Nothing Associated Symptoms Associated Symptoms - Eyes: - (Patient reports she is unable to see out of her right eye) History of injury: No Visual correction: None Narrative Narrative: Patient is a 53-year-old female with past medical history of sleep apnea, BMI 48.9, hypothyroidism, migraine headaches, diastolic dysfunction, coronary disease, essential hypertension, COPD, hyperlipidemia, GERD who presents with right eye pain and inability to see out of her right eye. Patient is presently wearing sunglasses. Patient denies fever, chills night sweats. Patient does complain of headache. Patient denies rhinorrhea, congestion postnasal drainage. Patient denies ear pain or discharge from her ear. Patient denies ringing or ears. Patient denies problem with speech or swallowing. Patient is uncertain whether there is a family history of glaucoma. Recent Illness/Hospitalization: No [facility] Medical History Kidney failure MARYANA (acute kidney injury) Fatigue MARYANA (acute kidney injury) Walker as ambulation aid Ambulates with cane Low iron History of renal disease High cholesterol DVT (deep venous thrombosis) PONV (postoperative nausea and vomiting) Stroke/cerebrovascular accident Sleep apnea Fall Cardiology follow-up encounter Scalp hematoma Pulmonary embolism Post-menopausal Thyroid disease Injury of head and neck Dietary restriction Difficulty swallowing BiPAP (biphasic positive airway pressure) dependence COPD (chronic obstructive pulmonary disease) Shortness of breath on exertion Leg cramps History of pain when walking History of edema History of echocardiogram History of stress test Syncope Abnormal glucose Noncompliance DAVY treated with BiPAP UTI (urinary tract infection) Vitamin D deficiency Restless leg syndrome Vitamin B12 deficiency Iron deficiency anemia History of chronic back pain Wears glasses Arthritis Non-smoker Hydronephrosis Depression Anemia Migraine headache Chronic kidney disease Diabetes mellitus Gout Celiac disease Hyperlipidemia GERD (gastroesophageal reflux disease) Dyspnea on exertion Chest pain Hypersomnia Cardiac murmur Microcytic anemia Hypertension Morbid obesity with BMI of 40.0-44.9, adult Asthma Hypothyroidism Anxiety Home Medications ?Medication ?Instructions ?Recorded ?Last Taken ?Type citalopram 40 mg tablet 40 mg PO DAILY DEPRESSION/ANXIETY 07/27/19 04/05/24 History budesonide-formoterol HFA 160 2 puff inhalation BID COPD 04/02/20 04/05/24 History mcg-4.5 mcg/actuation aerosol inhaler (Symbicort) metoclopramide HCl 10 mg tablet 10 mg PO Q6H PRN NAUSEA AND 01/07/23 Unknown Rx (Reglan) VOMTING #20 tabs atorvastatin 80 mg tablet 80 mg PO DAILY CHOLESTEROL 02/10/23 04/04/24 History cyclobenzaprine 5 mg tablet 5 mg PO Q8H MUSCLE SPASMS 02/10/23 04/05/24 History galcanezumab-gnlm 120 mg/mL 120 mg subcut Q30D migraines 07/29/23 Unknown History subcutaneous syringe (Emgality) trazodone 50 mg tablet 50 - 100 mg PO QHS SLEEP 07/29/23 04/04/24 History gabapentin 300 mg capsule 300 mg PO TID pain 09/30/23 04/05/24 History naratriptan 2.5 mg tablet 2.5 mg PO BID PRN migraines 10/01/23 Unknown History ezetimibe 10 mg tablet (Zetia) 10 mg PO QDAY cholesterol #30 tabs 11/28/23 04/05/24 Rx fluticasone propionate 50 2 spray intranasal Q12H allergies 01/20/24 Unknown History mcg/actuation nasal spray,suspension levothyroxine 200 mcg tablet 200 mcg PO DAILY thyroid 01/20/24 04/05/24 History tramadol 50 mg tablet 50 mg PO TID pain 01/20/24 04/05/24 History cephalexin 500 mg capsule 500 mg PO Q6 #12 CAPSULES 03/01/24 Unknown Rx sulfamethoxazole 800 1 tab PO BID 7 days #14 tabs 03/15/24 Unknown Rx mg-trimethoprim 160 mg tablet (Bactrim DS) isosorbide mononitrate 30 mg 30 mg PO DAILY HEART #30 tabs 03/30/24 04/05/24 Rx tablet,extended release 24 hr valsartan 160 mg tablet 160 mg PO BID blood pressure #180 03/30/24 04/05/24 Rx tabs Allergy/AdvReac Type Severity Reaction Status Date / Time hydrochlorothiazide AdvReac Intermediate Contributes Verified 04/05/24 13:49 to gout naproxen (From Naprosyn) AdvReac Intermediate Nausea Verified 04/05/24 13:49 aspirin AdvReac Nausea Verified 04/05/24 13:49 Family History Father , Age 72 Hypertension Mother CAD (coronary artery disease) Myocardial infarction, Onset Age: 55 Hypertension Sister CAD (coronary artery disease) Brother Cancer Surgical History History of cardiac catheterization History of History of carpal tunnel surgery of right wrist History of carpal tunnel surgery of left wrist Hx of cystoscopy History of left heart catheterization (11/11/20) history of uterine ablation Social History household members: none housing: apartment Smoking Status: Never smoker alcohol intake: never substance use type: does not use caffeine: No ROS ROS ED Constitutional Constitutional ED: Denies chills, fever(s), subjective or sweats Eyes Eyes: Reports change in vision right; Denies blurry vision ENT ENT ED: Denies ear pain, rhinorrhea or sore throat Integumentary Denies rash Neurologic Neurologic: Reports headache(s); Denies paresthesias or weakness Hematologic/Lymphatic Hematologic/Lymphatic: Denies easy bleeding or easy bruising EXAM Physical Exam Const Vital Signs: 04/20/24 12:11 Temperature 97 F L Temperature Source Temporal Pulse Rate 99 Respiratory Rate 16 Blood Pressure 191/119 H Blood Pressure Mean 143 Pulse Ox 96 Positive well nourished and well developed Constitutional Narrative: Patient is wearing sunglasses. Patient's BMI is 48.9. General Appearance ED: well developed HEENT HEENT Narrative: Head is atraumatic normocephalic. Ears normal. Nares patent. Posterior pharynx is normal. Eyes Eyes Narrative: Patient has floppy eye eyelid syndrome. Unable to get a good visualization. The conjunctivo and sclera are injected. There is a film noted over the cornea. Pupil I believe is midpoint. Patient is unable to open her eyes for reasons I am uncertain. Neck no lymphadenopathy, supple and no JVD Resp normal respiratory effort and clear to auscultation bilaterally Cardio regular rate and regular rhythm Neuro oriented x3 and CN's II-XII intact bilaterally Sensorium / Orientation: alert Skin no wounds Lesions: no lesions Rashes: no rashes MDM MDM MDM Narrative Medical decision making narrative: Differential diagnosis would include temporal arteritis, glaucoma, infection. Will obtain visual acuity, measure intraocular pressure, perform slit-lamp examination and consult Optho on-call after evaluation. This is not emergent since patient's not been able to see has had symptoms for 1 month. Vital signs are remarkable for an elevated blood pressure of 191/119. Patient was unable to even see fingers held within an inch of her eye. Management Discussion w/another healthcare provider: Printing Sign Machine Operator (Spoke to Dr. Zhou to be because of the limited exam and concern for significant pathology. He was told the patient's name and information that he requested. Patient to go straight to his office.) Discharge Plan Triage Chief Complaint: Eye Problem ED Provider: Jcarlos Anthony Dx/Rx/DC Orders Clinical Impression: Vision loss, right eye, Pain of right eye Prescriptions: No Action budesonide-formoterol [Symbicort] 160-4.5 mcg/actuation HFA aerosol inhaler 2 puff INHALATION BID ezetimibe [Zetia] 10 mg tablet 10 mg PO QDAY Qty: 30 11RF cyclobenzaprine 5 mg tablet 5 mg PO Q8H atorvastatin 80 mg Tablet 80 mg PO DAILY metoclopramide HCl [Reglan] 10 mg tablet 10 mg PO Q6H PRN (Reason: NAUSEA AND VOMTING ) Qty: 20 0RF cephalexin 500 mg capsule 500 mg PO Q6 Qty: 12 0RF sulfamethoxazole-trimethoprim [Bactrim DS] 800-160 mg tablet 1 tab PO BID 7 Days Qty: 14 0RF Emgality Syringe 120 mg/mL syringe 120 mg subcut Q30D Patient Comments: END OF MONTH trazodone 50 mg tablet 50 - 100 mg PO QHS gabapentin 300 mg capsule 300 mg PO TID naratriptan 2.5 mg tablet 2.5 mg PO BID PRN (Reason: migraines) Rx Instructions: can repeat dose, two hours after first dose taken. do not exceed more than two doses in 24 hours. fluticasone propionate 50 mcg/actuation spray,suspension 2 spray INTRANASAL Q12H Patient Comments: [NO ORIGINAL SIG] tramadol 50 mg tablet 50 mg PO TID levothyroxine 200 mcg tablet 200 mcg PO DAILY citalopram 40 mg tablet 40 mg PO DAILY valsartan 160 mg tablet 160 mg PO BID Qty: 180 3RF isosorbide mononitrate 30 mg tablet extended release 24 hr 30 mg PO DAILY Qty: 30 11RF Primary Care Provider: Nasreen Sutton Referrals: Nasreen Sutton MD [Primary Care Provider] - Floyd Renteria MD [Med Staff - Active Staff] - As soon as possible Activity Restrictions/Additional Instructions: Go straight to Dr. Germain's office for an emergent ophthalmology exam. Print Language: Indonesian Disposition Disposition: Home, Self Care
== END 2024-04-20 15:34 | disposition home or self-care (01) ==
PROVIDERS: Emergency Provider Emergency Medicine; PCP Family Medicine; Visit Provider Emergency Medicine
DX: H57.11 Ocular pain, right eye (principal); J44.9 Chronic obstructive pulmonary disease, unspecified; H53.121 Transient visual loss, right eye; E78.00 Pure hypercholesterolemia, unspecified; I12.9 Hypertensive chronic kidney disease with stage 1 through stage 4 chronic kidney disease, or unspecified chronic kidney disease; N18.9 Chronic kidney disease, unspecified; I25.10 Atherosclerotic heart disease of native coronary artery without angina pectoris; Z79.51 Long term (current) use of inhaled steroids; Z79.899 Other long term (current) drug therapy
CPT/HCPCS: 99282

== ENCOUNTER 2024-04-21 14:59 | Emergency (ER) | payer MEDICARE, MEDICAID, SELFPAY ==
[2024-04-21 14:59] VITALS: BP 173/124; PULSE 100; RESP 16; TEMP 36.4; O2SAT 96; BMI 48.2
--- NOTE | 2024-04-21 15:13 | EX.ED.VIS.EY ---
HPI History of Present Illness Chief Complaint: Eye Problem [facility] Medical History Kidney failure MARYANA (acute kidney injury) Fatigue MARYANA (acute kidney injury) Walker as ambulation aid Ambulates with cane Low iron History of renal disease High cholesterol DVT (deep venous thrombosis) PONV (postoperative nausea and vomiting) Stroke/cerebrovascular accident Sleep apnea Fall Cardiology follow-up encounter Scalp hematoma Pulmonary embolism Post-menopausal Thyroid disease Injury of head and neck Dietary restriction Difficulty swallowing BiPAP (biphasic positive airway pressure) dependence COPD (chronic obstructive pulmonary disease) Shortness of breath on exertion Leg cramps History of pain when walking History of edema History of echocardiogram History of stress test Syncope Abnormal glucose Noncompliance DAVY treated with BiPAP UTI (urinary tract infection) Vitamin D deficiency Restless leg syndrome Vitamin B12 deficiency Iron deficiency anemia History of chronic back pain Wears glasses Arthritis Non-smoker Hydronephrosis Depression Anemia Migraine headache Chronic kidney disease Diabetes mellitus Gout Celiac disease Hyperlipidemia GERD (gastroesophageal reflux disease) Dyspnea on exertion Chest pain Hypersomnia Cardiac murmur Microcytic anemia Hypertension Morbid obesity with BMI of 40.0-44.9, adult Asthma Hypothyroidism Anxiety Home Medications ?Medication ?Instructions ?Recorded ?Last Taken ?Type citalopram 40 mg tablet 40 mg PO DAILY DEPRESSION/ANXIETY 07/27/19 04/05/24 History budesonide-formoterol HFA 160 2 puff inhalation BID COPD 04/02/20 04/05/24 History mcg-4.5 mcg/actuation aerosol inhaler (Symbicort) metoclopramide HCl 10 mg tablet 10 mg PO Q6H PRN NAUSEA AND 01/07/23 Unknown Rx (Reglan) VOMTING #20 tabs atorvastatin 80 mg tablet 80 mg PO DAILY CHOLESTEROL 02/10/23 04/04/24 History cyclobenzaprine 5 mg tablet 5 mg PO Q8H MUSCLE SPASMS 02/10/23 04/05/24 History galcanezumab-gnlm 120 mg/mL 120 mg subcut Q30D migraines 07/29/23 Unknown History subcutaneous syringe (Emgality) trazodone 50 mg tablet 50 - 100 mg PO QHS SLEEP 07/29/23 04/04/24 History gabapentin 300 mg capsule 300 mg PO TID pain 09/30/23 04/05/24 History naratriptan 2.5 mg tablet 2.5 mg PO BID PRN migraines 10/01/23 Unknown History ezetimibe 10 mg tablet (Zetia) 10 mg PO QDAY cholesterol #30 tabs 11/28/23 04/05/24 Rx fluticasone propionate 50 2 spray intranasal Q12H allergies 01/20/24 Unknown History mcg/actuation nasal spray,suspension levothyroxine 200 mcg tablet 200 mcg PO DAILY thyroid 01/20/24 04/05/24 History tramadol 50 mg tablet 50 mg PO TID pain 01/20/24 04/05/24 History cephalexin 500 mg capsule 500 mg PO Q6 #12 CAPSULES 03/01/24 Unknown Rx sulfamethoxazole 800 1 tab PO BID 7 days #14 tabs 03/15/24 Unknown Rx mg-trimethoprim 160 mg tablet (Bactrim DS) isosorbide mononitrate 30 mg 30 mg PO DAILY HEART #30 tabs 03/30/24 04/05/24 Rx tablet,extended release 24 hr valsartan 160 mg tablet 160 mg PO BID blood pressure #180 03/30/24 04/05/24 Rx tabs ondansetron 4 mg disintegrating 4 mg PO Q8H PRN PRN Nausea #10 tabs 04/21/24 Unknown Rx tablet Allergy/AdvReac Type Severity Reaction Status Date / Time hydrochlorothiazide AdvReac Intermediate Contributes Verified 04/21/24 15:01 to gout naproxen (From Naprosyn) AdvReac Intermediate Nausea Verified 04/21/24 15:01 aspirin AdvReac Nausea Verified 04/21/24 15:01 Family History Father , Age 72 Hypertension Mother CAD (coronary artery disease) Myocardial infarction, Onset Age: 55 Hypertension Sister CAD (coronary artery disease) Brother Cancer Surgical History History of cardiac catheterization History of History of carpal tunnel surgery of right wrist History of carpal tunnel surgery of left wrist Hx of cystoscopy History of left heart catheterization (11/11/20) history of uterine ablation Social History household members: none housing: apartment Smoking Status: Never smoker alcohol intake: never substance use type: does not use caffeine: No EXAM Physical Exam Const Vital Signs: 04/21/24 14:59 Temperature 97.6 F L Temperature Source Temporal Pulse Rate 100 Respiratory Rate 16 Blood Pressure 173/124 H Blood Pressure Mean 140 Pulse Ox 96 Oxygen Delivery Method Room Air [facility] Narrative Medical decision making narrative: HISTORY OF PRESENT ILLNESS: 83-year-old female presents concern for right eye pain. States she seen yesterday. Symptoms are similar. Also notes she is unable to keep down fluids. She notes she seen her eye doctors. No she seen 2 eye doctors in the last 2 days. States they prescribed her multiple different medications including erythromycin which she is having difficulty taking secondary to nausea. She notes severe pain. She notes she is concerned that if she goes home the pain to be so severe that she have to come right back. REVIEW OF SYSTEMS: Pertinent positives: Right eye pain Pertinent negatives: Fever PHYSICAL EXAM: Nursing triage notes reviewed, Vital signs reviewed Constitutional: please see [facility] HENT: MMM Eyes: Right eye with floppy lid, difficult to assess. Upon eversion of the lid there is a cloudy injected right cornea with a central ulceration as previously documented in ophthalmology notes. Visual acuity is 20/200 OD. Left eye clear, visual acuity: 20/30 (uncorrected), no conjunctival injection, no sign of tach or cystitis, or delirium, chilis EN. Pupil equal reactive to light, visual lee intact, extraocular muscles intact. Neck: No stridor, no JVD, full neck ROM Lungs: Clear to auscultation, No wheezing or rales. No increased work of breathing, no conversational dyspnea, no accessory muscle use, no nasal flaring. No respiratory distress noted Heart: Regular rate and rhythm, No murmurs, No rubs and No gallops, 2+ distal pulses (radial, femoral, posterior tibial) in all extremities Abdomen: Soft, there is no tenderness, rigidity, rebound or guarding, no obvious peritoneal signs, no palpable pulsatile abdominal masses, no auscultated abdominal bruit : No CVAT Extremities: No edema Neuro: No new focal neurological deficits, cranial nerves II through XII intact, 5/5 strength in all present extremities. Intact sensation to light touch in all present extremities, 2+ reflexes bilateral patella tendons. Skin: No rash or lesions noted MEDICAL DECISION MAKING: Chief Complaint: External records reviewed: Reviewed ED visit from yesterday. Patient was seen yesterday for similar complaints. She complained of right eye pain amblyopia right eye. Physician yesterday thought patient had floppy eyelid syndrome. Discussed with doctor of podiatric medicine Dr. Zhou yesterday. Patient was sent directly to Dr. Zhou's office. Attempted to retrieve records from the doctor of podiatric medicine office via [employer]. Per outside records patient saw ophthalmology at [facility] [place] on 04/19/2024. 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 Patient has had 1 month of constant eye pain and symptoms related to a corneal ulceration. Based on her recent ophthalmology evaluations this may be caused by an infectious agent. She is on multiple different antiinfectious eyedrops and oral erythromycin. She has close follow-up with ophthalmology. There is no indication for emergent ophthalmology evaluation as she has seen 2 doctor of podiatric medicine in the last 48 hours. Her pain was treated here with Tylenol, oxycodone and ibuprofen. Nausea treated with Zofran. She is able tolerate p.o. she is approved for discharge home. Zofran prescribed for home-going. Close ophthalmology follow-up was encouraged. The patient and/or family, caregivers express understanding. The patient and/or family, caregivers agrees with the plan. Shared decision making: I will have a discussion with the patient and or visitors regarding risk/benefits of further testing or admission. They will be made aware of of the risk/benefits inherent in this decision they will be given the opportunity to voice understanding. Total critical care time today provided was at least 0 [] minutes. This excludes separately billable procedures. Critical care time (if documented) is secondary to the patient having high probability of clinically significant/life threatening deterioration in the patient's condition which required my urgent intervention. Impression: 1. Chronic right eye pain 2. Floppy eyelid syndrome 3. Corneal ulceration 4. Nausea Dispo: Discharge This note was generated with [employer] dictation software. It may contain incorrect words, spelling, and punctuation that were not noted in review of the chart prior to signing. Discharge Plan Triage Chief Complaint: Eye Problem ED Provider: Shawn Lloyd Dx/Rx/DC Orders Clinical Impression: Pain, eye, right, Corneal ulcer, Floppy eyelid syndrome of right eye Instructions: Corneal Injury Prescriptions: New ondansetron 4 mg tablet,disintegrating 4 mg PO Q8H PRN PRN (Reason: Nausea) Qty: 10 0RF No Action budesonide-formoterol [Symbicort] 160-4.5 mcg/actuation HFA aerosol inhaler 2 puff INHALATION BID ezetimibe [Zetia] 10 mg tablet 10 mg PO QDAY Qty: 30 11RF cyclobenzaprine 5 mg tablet 5 mg PO Q8H atorvastatin 80 mg Tablet 80 mg PO DAILY metoclopramide HCl [Reglan] 10 mg tablet 10 mg PO Q6H PRN (Reason: NAUSEA AND VOMTING ) Qty: 20 0RF cephalexin 500 mg capsule 500 mg PO Q6 Qty: 12 0RF sulfamethoxazole-trimethoprim [Bactrim DS] 800-160 mg tablet 1 tab PO BID 7 Days Qty: 14 0RF Emgality Syringe 120 mg/mL syringe 120 mg subcut Q30D Patient Comments: END OF MONTH trazodone 50 mg tablet 50 - 100 mg PO QHS gabapentin 300 mg capsule 300 mg PO TID naratriptan 2.5 mg tablet 2.5 mg PO BID PRN (Reason: migraines) Rx Instructions: can repeat dose, two hours after first dose taken. do not exceed more than two doses in 24 hours. fluticasone propionate 50 mcg/actuation spray,suspension 2 spray INTRANASAL Q12H Patient Comments: [NO ORIGINAL SIG] tramadol 50 mg tablet 50 mg PO TID levothyroxine 200 mcg tablet 200 mcg PO DAILY citalopram 40 mg tablet 40 mg PO DAILY valsartan 160 mg tablet 160 mg PO BID Qty: 180 3RF isosorbide mononitrate 30 mg tablet extended release 24 hr 30 mg PO DAILY Qty: 30 11RF Primary Care Provider: Nasreen Sutton Referrals: Nasreen Sutton MD [Primary Care Provider] - Activity Restrictions/Additional Instructions: Thank you for trusting us with your care today! Your exam is consistent with her known floppy eyelid syndrome and corneal ulceration. Please take Tylenol (2 pills, 650 mg), ibuprofen (2 pills, 400 mg) every 6 hours as needed for pain and fever control. Please take Zofran as needed for nausea and vomiting control. Please return to the emergency department if your symptoms change or worsen. Please follow with your primary care physician for further outpatient evaluation and management. Print Language: Nepalese Disposition Disposition: Home, Self Care
[2024-04-21] MEDS: Ondansetron ODT 4 MG Tablet PO (15:42)
[2024-04-21] MEDS: Ibuprofen 200 MG Tablet 400 MG PO (16:03)
[2024-04-21] MEDS: Acetaminophen 325 MG Tablet 650 MG PO (16:04)
[2024-04-21] MEDS: oxyCODONE 5 MG Tablet PO (16:04)
--- NOTE | 2024-04-21 16:33 | ED.RN ---
pt. passed PO challenge, ambulated out of dept. by herself
== END 2024-04-21 16:35 | disposition home or self-care (01) ==
PROVIDERS: Emergency Provider Emergency Medicine; PCP Family Medicine; Visit Provider Emergency Medicine
DX: H16.011 Central corneal ulcer, right eye (principal); H02.89 Other specified disorders of eyelid; G89.29 Other chronic pain; R11.0 Nausea; I10 Essential (primary) hypertension; Z79.899 Other long term (current) drug therapy
CPT/HCPCS: 99283

== ENCOUNTER 2024-04-22 16:24 | Emergency (ER) | payer MEDICARE, MEDICAID, SELFPAY ==
[2024-04-22 16:26] VITALS: BP 190/114; PULSE 98; RESP 20; TEMP 35.9; O2SAT 95; BMI 48.3
--- NOTE | 2024-04-22 16:39 | EDS_ITS ---
HPI History of Present Illness Chief Complaint: Anxiety [facility] Medical History Kidney failure MARYANA (acute kidney injury) Fatigue MARYANA (acute kidney injury) Walker as ambulation aid Ambulates with cane Low iron History of renal disease High cholesterol DVT (deep venous thrombosis) PONV (postoperative nausea and vomiting) Stroke/cerebrovascular accident Sleep apnea Fall Cardiology follow-up encounter Scalp hematoma Pulmonary embolism Post-menopausal Thyroid disease Injury of head and neck Dietary restriction Difficulty swallowing BiPAP (biphasic positive airway pressure) dependence COPD (chronic obstructive pulmonary disease) Shortness of breath on exertion Leg cramps History of pain when walking History of edema History of echocardiogram History of stress test Syncope Abnormal glucose Noncompliance DAVY treated with BiPAP UTI (urinary tract infection) Vitamin D deficiency Restless leg syndrome Vitamin B12 deficiency Iron deficiency anemia History of chronic back pain Wears glasses Arthritis Non-smoker Hydronephrosis Depression Anemia Migraine headache Chronic kidney disease Diabetes mellitus Gout Celiac disease Hyperlipidemia GERD (gastroesophageal reflux disease) Dyspnea on exertion Chest pain Hypersomnia Cardiac murmur Microcytic anemia Hypertension Morbid obesity with BMI of 40.0-44.9, adult Asthma Hypothyroidism Anxiety Home Medications ?Medication ?Instructions ?Recorded ?Last Taken ?Type citalopram 40 mg tablet 40 mg PO DAILY DEPRESSION/AN XIETY 07/27/19 04/05/24 History budesonide-formoterol HFA 160 2 puff inhalation BID CO PD 04/02/20 04/05/24 History mcg-4.5 mcg/actuation aerosol inhaler (Symbicort) metoclopramide HCl 10 mg tablet 10 mg PO Q6H PRN NAUSE A AND 01/07/23 Unknown Rx (Reglan) VOMTING #20 tabs atorvastatin 80 mg tablet 80 mg PO DAILY CHOLESTEROL 1 04/13/22 04/04/24 History cyclobenzaprine 5 mg tablet 5 mg PO Q8H MUSCLE SPASMS 02/10/23 04/05/24 History galcanezumab-gnlm 120 mg/mL 120 mg subcut Q30D migrain es 07/29/23 Unknown History subcutaneous syringe (Emgality) trazodone 50 mg tablet 50 - 100 mg PO QHS SLEEP 04/04/24 History gabapentin 300 mg capsule 300 mg PO TID pain 09/30/23 04/05/24 History naratriptan 2.5 mg tablet 2.5 mg PO BID PRN migraines 10/01/23 Unknown History ezetimibe 10 mg tablet (Zetia) 10 mg PO QDAY cholester ol #30 tabs 11/28/2308/22 Rx fluticasone propionate 50 2 spray intranasal Q12H gm rgies 01/20/24 Unknown History mcg/actuation nasal spray,suspension levothyroxine 200 mcg tablet 200 mcg PO DAILY thyroid 01/20/24 04/05/24 History tramadol 50 mg tablet 50 mg PO TID pain 01/20/24 0 04/05/24 History cephalexin 500 mg capsule 500 mg PO Q6 #12 CAPSULES Unknown Rx sulfamethoxazole 800 1 tab PO BID 7 days #14 tabs 03/15/24 Unknown Rx mg-trimethoprim 160 mg tablet (Bactrim DS) isosorbide mononitrate 30 mg 30 mg PO DAILY HEART #30 tabs 03/30/24 04/05/24 Rx tablet,extended release 24 hr valsartan 160 mg tablet 160 mg PO BID blood pressure #180 03/30/24 04/05/24 Rx tabs ondansetron 4 mg disintegrating 4 mg PO Q8H PRN PRN Na usea #10 tabs 04/21/24 Unknown Rx tablet hydroxyzine HCl 25 mg tablet 25 mg PO TID PRN anxiety #20 tabs 04/22/24 Unknown Rx Allergy/AdvReac Type Severity Reaction Status Date / Time hydrochlorothiazide AdvReac Intermediate Contributes Verified 04/22/24 16:26 to gout naproxen (From Naprosyn) AdvReac Intermediate Nausea Verified 04/22/24 16:26 aspirin AdvReac Nausea Verified 04/22/24 16:26 Family History Father , Age 72 Hypertension Mother CAD (coronary artery disease) Myocardial infarction, Onset Age: 55 Hypertension Sister CAD (coronary artery disease) Brother Cancer Surgical History History of cardiac catheterization History of History of carpal tunnel surgery of right wrist History of carpal tunnel surgery of left wrist Hx of cystoscopy History of left heart catheterization (11/11/20) history of uterine ablation Social History household members: none housing: apartment Smoking Status: Never smoker alcohol intake: never substance use type: does not use caffeine: No EXAM Physical Exam Const Vital Signs: 04/22/24 16:26 04/22/24 16:58 Temperature 96.7 F L Temperature Source Temporal Pulse Rate 98 86 Respiratory Rate 20 H Blood Pressure 190/114 H 153/93 H Blood Pressure Mean 139 113 Pulse Ox 95 Oxygen Delivery Method Room Air [facility] Narrative Medical decision making narrative: HISTORY OF PRESENT ILLNESS: 53-year-old female presents with anxiety. No changes to I complain from yesterday. Notes anxiety about procedure that she has coming up. Denies suici ambreen ideation, homicidal ideation, auditory or visual hallucinations. No chest pain. No shortness of breath. No leg swelling. No headache. Denies drug use. REVIEW OF SYSTEMS: Pertinent positives: Anxiety Pertinent negatives: Chest pain PHYSICAL EXAM: Nursing triage notes reviewed, Vital signs reviewed Constitutional: please see mdm HENT: MMM Eyes: Pupils equal round and reactive to light, Extraocular muscles intact Neck: No stridor, no JVD, full neck ROM Lungs: Clear to auscultation, No wheezing or rales. No increased work of breathing, no conversational dyspnea, no accessory muscle use, no nasal flaring. No respiratory distress noted Heart: Regular rate and rhythm, No murmurs, No rubs and No gallops, 2+ distal pulses (radial, femoral, posterior tibial) in all extremities Abdomen: Soft, there is no tenderness, rigidity, rebound or guarding, no obvious peritoneal signs, no palpable pulsatile abdominal masses, no auscultated abdominal bruit : No CVAT Extremities: No edema Neuro: Alert and oriented x3, neuro exam at baseline, cranial nerves II through XII are intact. No pain with extraocular muscle movement. There is negative test of skew. 5 of 5 strength in upper and lower extremities in flexion extension. Intact sensation to light touch in upper and lower extremity dermatomes. No truncal or extremity ataxia. No dysdiadochokinesia. Normal gait. 2+ reflexes in upper and lower extremities. No meningeal signs. Negative Babinski. NIH of 0. Psych: Normal affect, goal-directed thought process, does not appear anxious MEDICAL DECISION MAKING: Chief Complaint: Anxiety External records reviewed: Reviewed ED visit from yesterday Factors affecting care: Anxiety Social determinants of health: Denies illicit drug use History obtained from others: none Consults: none MDM Narrative: The patient was initially hypertensive with a blood pressure of 190/114 otherwise afebrile nontoxic-appearing saturating well on room air. Given hypertension I obtained a screening EKG. EKG with normal sinus rhythm, left axis deviation, prolonged QT interval 562 but no ischemic changes Treated with Atarax. Blood pressure improved 153/93 after Atarax. On reevaluation patient continues to deny suicidal ideation, homicidal ideation auditory or visual hallucinations. The patient is appropriate discharge home The patient and/or family, caregivers express understanding. The patient and/or family, caregivers agrees with the plan. Shared decision making: I will have a discussion with the patient and or visitors regarding risk/benefits of further testing or admission. They will be made aware of of the risk/benefits inherent in this decision they will be given the opportunity to voice understanding. Total critical care time today provided was at least 0 minutes. This excludes separately billable procedures. Critical care time (if documented) is secondary to the patient having high probability of clinically significant/life threatening deterioration in the patient's condition which required my urgent intervention. Impression: 1. Anxiety 2. Elevated blood pressure 3. Prolonged QT interval Dispo: Discharge This note was generated with [employer]. Java dictation software. It may contain incorrect words, spelling, and punctuation that were not noted in review of the chart prior to signing. Discharge Plan Triage Chief Complaint: Anxiety ED Provider: Shawn Lloyd Dx/Rx/DC Orders Clinical Impression: Anxiety Instructions: ED Anxiety Reaction Prescriptions: New hydroxyzine HCl 25 mg tablet 25 mg PO TID PRN (Reason: anxiety) Qty: 20 0RF No Action budesonide-formoterol [Symbicort] 160-4.5 mcg/actuation HFA aerosol inhaler 2 puff INHALATION BID ezetimibe [Zetia] 10 mg tablet 10 mg PO QDAY Qty: 30 11RF cyclobenzaprine 5 mg tablet 5 mg PO Q8H atorvastatin 80 mg Tablet 80 mg PO DAILY metoclopramide HCl [Reglan] 10 mg tablet 10 mg PO Q6H PRN (Reason: NAUSEA AND VOMTING ) Qty: 20 0RF cephalexin 500 mg capsule 500 mg PO Q6 Qty: 12 0RF sulfamethoxazole-trimethoprim [Bactrim DS] 800-160 mg tablet 1 tab PO BID 7 Days Qty: 14 0RF Emgality Syringe 120 mg/mL syringe 120 mg subcut Q30D Patient Comments: END OF MONTH trazodone 50 mg tablet 50 - 100 mg PO QHS gabapentin 300 mg capsule 300 mg PO TID naratriptan 2.5 mg tablet 2.5 mg PO BID PRN (Reason: migraines) Rx Instructions: can repeat dose, two hours after first dose taken. do not exceed more than two doses in 24 hours. fluticasone propionate 50 mcg/actuation spray,suspension 2 spray INTRANASAL Q12H Patient Comments: [NO ORIGINAL SIG] tramadol 50 mg tablet 50 mg PO TID levothyroxine 200 mcg tablet 200 mcg PO DAILY ondansetron 4 mg tablet,disintegrating 4 mg PO Q8H PRN PRN (Reason: Nausea) Qty: 10 0RF citalopram 40 mg tablet 40 mg PO DAILY valsartan 160 mg tablet 160 mg PO BID Qty: 180 3RF isosorbide mononitrate 30 mg tablet extended release 24 hr 30 mg PO DAILY Qty: 30 11RF Primary Care Provider: Nasreen Sutton Referrals: Nasreen Sutton MD [Primary Care Provider] - Yakov Ariza DO [Med Staff - Commercial Pest Control Technician] - Activity Restrictions/Additional Instructions: Thank you for trusting us with your care today! Please take Tylenol (2 pills, 650 mg), ibuprofen (2 pills, 400 mg) every 6 hours as needed for pain and fever control. Please take Atarax as needed for anxiety. Please return to the emergency department if your symptoms change or worsen. Please follow with your primary care physician for further outpatient evaluation and management. Print Language: Citizen Of [place] Disposition Disposition: Home, Self Care
--- NOTE | 2024-04-22 16:43 | EKG12_ITS ---
Test Reason : GENERAL Blood Pressure : */* mmHG Vent. Rate : 86 BPM Atrial Rate : 86 BPM P-R Int : 150 ms QRS Dur : 84 ms QT Int : 470 ms P-R-T Axes : 42 -6 5 degrees QTcB Int : 562 ms Critical Test Result: Long QTc Normal sinus rhythm Non-specific ST & T wave changes Abnormal ECG Confirmed by Wse Medeiros ([id number]), assistant editor SONJA ZABALA ([id number]) on 04/23/2024 10:26:50 AM Referred By: Confirmed By: Wes Medeiros
[2024-04-22] MEDS: hydrOXYzine 10 MG Tablet PO (16:55)
[2024-04-22 16:58] VITALS: BP 153/93; PULSE 86
--- NOTE | 2024-04-22 16:59 | ED.RN ---
Spoke with patient about freq visits to the ED. Explained to pt that 3 visits in 3 days in not a normal practice. Pt advised that the one day she here but wasn't seen because she waited 3 hours. I explained that she was still here. JACOB Brunson is aware that patient is here again. They have been following her due to extremely high visit numbers. Pt complaint today was anxiety but changed while in the room when she was told that the dr wasn't given her what she wanted.
--- NOTE | 2024-04-22 17:15 | CM.ED ---
Social Work: Patient provided consent for social work visit. conveyor worker talked with patient about her anxiety and about getting connected to community resources such as counseling to help address on-going issues and to learn various skills and strategies to help manage symptoms and patient refused. Not interested. Patient also reported she went to [facility] today due to pain in eye. No other information shared with social science instructor. Nannette Christensen, PRODUCTION QUALITY ANALYST, INSPECTOR FIREARMS
[2024-04-22 17:18] VITALS: BP 156/93; PULSE 72; RESP 18; TEMP 36.6; O2SAT 98
== END 2024-04-22 17:20 | disposition home or self-care (01) ==
PROVIDERS: Emergency Provider Emergency Medicine; PCP Family Medicine; Visit Provider Emergency Medicine
DX: F41.9 Anxiety disorder, unspecified (principal); I10 Essential (primary) hypertension; Z79.899 Other long term (current) drug therapy
CPT/HCPCS: 93005; 99282; A4216

== ENCOUNTER 2024-05-01 10:35 | Emergency (ER) | payer MEDICARE, MEDICAID, SELFPAY ==
[2024-05-01 10:36] VITALS: BP 154/109; PULSE 81; RESP 16; TEMP 36.9; O2SAT 98
[2024-05-01 11:09] VITALS: BMI 49.4
--- NOTE | 2024-05-01 11:56 | EX.ED.DYSGE1 ---
HPI History of Present Illness Chief Complaint: Nausea/Vomiting Informant: patient Narrative Narrative: 53-year-old female well-known to the emergency department. 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 Patient states that she was sent to the emergency department today by primary care after being seen in the office for vomiting. She states she has been sick for 4 days. She states that she was seen at the [place] emergency department on Tuesday. She has Phenergan at home which has not helped to control her vomiting. She denies diarrhea. She notes that she has been hypertensive. She states that whenever she tries to eat she becomes more nauseous and throws up. [facility] Medical History Kidney failure MARYANA (acute kidney injury) Fatigue MARYANA (acute kidney injury) Walker as ambulation aid Ambulates with cane Low iron History of renal disease High cholesterol DVT (deep venous thrombosis) PONV (postoperative nausea and vomiting) Stroke/cerebrovascular accident Sleep apnea Fall Cardiology follow-up encounter Scalp hematoma Pulmonary embolism Post-menopausal Thyroid disease Injury of head and neck Dietary restriction Difficulty swallowing BiPAP (biphasic positive airway pressure) dependence COPD (chronic obstructive pulmonary disease) Shortness of breath on exertion Leg cramps History of pain when walking History of edema History of echocardiogram History of stress test Syncope Abnormal glucose Noncompliance DAVY treated with BiPAP UTI (urinary tract infection) Vitamin D deficiency Restless leg syndrome Vitamin B12 deficiency Iron deficiency anemia History of chronic back pain Wears glasses Arthritis Non-smoker Hydronephrosis Depression Anemia Migraine headache Chronic kidney disease Diabetes mellitus Gout Celiac disease Hyperlipidemia GERD (gastroesophageal reflux disease) Dyspnea on exertion Chest pain Hypersomnia Cardiac murmur Microcytic anemia Hypertension Morbid obesity with BMI of 40.0-44.9, adult Asthma Hypothyroidism Anxiety Home Medications ?Medication ?Instructions ?Recorded ?Last Taken ?Type citalopram 40 mg tablet 40 mg PO DAILY DEPRESSION/ANXIETY 07/27/19 04/05/24 History budesonide-formoterol HFA 160 2 puff inhalation BID COPD 04/02/20 04/05/24 History mcg-4.5 mcg/actuation aerosol inhaler (Symbicort) metoclopramide HCl 10 mg tablet 10 mg PO Q6H PRN NAUSEA AND 01/07/23 Unknown Rx (Reglan) VOMTING #20 tabs atorvastatin 80 mg tablet 80 mg PO DAILY CHOLESTEROL 12/14/23 02/05/25 History cyclobenzaprine 5 mg tablet 5 mg PO Q8H MUSCLE SPASMS 02/10/23 04/05/24 History galcanezumab-gnlm 120 mg/mL 120 mg subcut Q30D migraines 07/29/23 Unknown History subcutaneous syringe (Emgality) trazodone 50 mg tablet 50 - 100 mg PO QHS SLEEP 07/29/23 04/04/24 History gabapentin 300 mg capsule 300 mg PO TID pain 09/30/23 04/05/24 History naratriptan 2.5 mg tablet 2.5 mg PO BID PRN migraines 10/01/23 Unknown History ezetimibe 10 mg tablet (Zetia) 10 mg PO QDAY cholesterol #30 tabs 11/28/23 04/05/24 Rx fluticasone propionate 50 2 spray intranasal Q12H allergies 01/20/24 Unknown History mcg/actuation nasal spray,suspension levothyroxine 200 mcg tablet 200 mcg PO DAILY thyroid 01/20/24 04/05/24 History tramadol 50 mg tablet 50 mg PO TID pain 01/20/24 04/05/24 History cephalexin 500 mg capsule 500 mg PO Q6 #12 CAPSULES 03/01/24 Unknown Rx sulfamethoxazole 800 1 tab PO BID 7 days #14 tabs 03/15/24 Unknown Rx mg-trimethoprim 160 mg tablet (Bactrim DS) isosorbide mononitrate 30 mg 30 mg PO DAILY HEART #30 tabs 03/30/24 04/05/24 Rx tablet,extended release 24 hr valsartan 160 mg tablet 160 mg PO BID blood pressure #180 03/30/24 04/05/24 Rx tabs ondansetron 4 mg disintegrating 4 mg PO Q8H PRN PRN Nausea #10 tabs 04/21/24 Unknown Rx tablet hydroxyzine HCl 25 mg tablet 25 mg PO TID PRN anxiety #20 tabs 04/22/24 Unknown Rx ondansetron 4 mg disintegrating 4 mg PO Q6H PRN PRN Nausea #15 tabs 05/01/24 Unknown Rx tablet Allergy/AdvReac Type Severity Reaction Status Date / Time hydrochlorothiazide AdvReac Intermediate Contributes Verified 05/01/24 10:37 to gout naproxen (From Naprosyn) AdvReac Intermediate Nausea Verified 05/01/24 10:37 aspirin AdvReac Nausea Verified 05/01/24 10:37 Family History Father , Age 72 Hypertension Mother CAD (coronary artery disease) Myocardial infarction, Onset Age: 55 Hypertension Sister CAD (coronary artery disease) Brother Cancer Surgical History History of cardiac catheterization History of History of carpal tunnel surgery of right wrist History of carpal tunnel surgery of left wrist Hx of cystoscopy History of left heart catheterization (11/11/20) history of uterine ablation Social History household members: none housing: apartment Smoking Status: Never smoker alcohol intake: never substance use type: does not use caffeine: No ROS ROS ED ROS Narrative Hypertension Constitutional Constitutional ED: Denies chills or weight loss Eyes Eyes: Denies change in vision or diplopia ENT ENT ED: Denies ear pain, rhinorrhea or sore throat Cardiovascular Cardiovascular: Denies chest pain, orthopnea, palpitations or racing heartbeat Respiratory/Chest Respiratory/Chest: Denies cough, dyspnea or orthopnea Gastrointestinal Gastrointestinal: Reports nausea and vomiting; Denies abdominal pain or diarrhea Genitourinary Genitourinary ED: Denies dysuria, hematuria or urinary frequency Musculoskeletal Musculoskeletal: Reports neck pain; Denies arthralgias or myalgias Integumentary Denies abscess or rash Neurologic Neurologic: Reports headache(s); Denies weakness Psychiatric Psychiatric: Denies anxiety, depression, suicidal ideation or suicidal thoughts Endocrine Endocrinology: Denies polydipsia, polyphagia or polyuria Allergic/Immunologic Allergic/Immunologic ED: Denies mouth swelling, tongue swelling or urticaria EXAM Physical Exam Const Vital Signs: 05/01/24 10:36 05/01/24 12:35 05/01/24 14:00 Temperature 98.4 F Temperature Source Oral Pulse Rate 81 82 78 Respiratory Rate 16 16 18 Blood Pressure 154/109 H 166/105 H 118/66 Blood Pressure Mean 124 125 83 Pulse Ox 98 93 98 Oxygen Delivery Method Room Air Room Air Room Air Positive well nourished and well developed General Appearance ED: well developed HEENT Reports normocephalic, head/scalp atraumatic and moist mucous membranes Eyes PERRL and EOMs intact bilaterally Neck no lymphadenopathy, supple and no JVD Resp normal respiratory effort and clear to auscultation bilaterally Cardio regular rate, regular rhythm and no murmurs GI normal to inspection, nondistended, normoactive bowel sounds and non-tender Palpation: soft Back/Spine no CVA tenderness and normal ROM Extremity normal to inspection General Extremety ED: Negative for edema General Extremity: Negative for edema Neuro oriented x3 and CN's II-XII intact bilaterally Sensorium / Orientation: alert Motor Exam: strength 5/5 throughout Psych mental status grossly normal Mood & Affect: Negative for depressed or tearful Skin no rashes or lesions noted and no wounds MDM MDM MDM Narrative Medical decision making narrative: Differential diagnosis includes colitis gastroenteritis dehydration electrolyte abnormalities acute kidney injury pancreatitis hepatitis Patient's white count 9.0 hemoglobin 13.4 platelet 304. BMP shows a CO2 of 19.6 anion gap of 20 normal BUN normal creatinine normal LFTs normal lipase. Patient received IV fluids as well as Zofran. Clinically I think the patient most likely has a viral illness. Would recommend continued oral hydration. She has Phenergan at home I can write for some Zofran to see if that helps her more. History & Record Review Discussion w/independent historian: Patient Lab Data Attestation: I reviewed the patient's lab results. Labs: Laboratory Results - last 24 hr 05/01/24 11:00 WBC 9.0 RBC 4.47 Hgb 13.4 Hct 42.6 MCV 95.3 MCH 30.0 MCHC 31.5 L RDW Std Deviation 57.1 H RDW Coeff of Alfredo 16.4 H Plt Count 304 MPV 11.0 Immature Gran % (Auto) 0.300 Neut % (Auto) 75.8 H Lymph % (Auto) 15.3 L [place] % (Auto) 6.1 Eos % (Auto) 2.1 Baso % (Auto) 0.4 Absolute Neuts (auto) 6.8 Absolute Lymphs (auto) 1.37 Nucleated RBC % 0 Sodium 140 Potassium 3.4 Chloride 100 Carbon Dioxide 19.6 L Anion Gap 20 H BUN 6 Creatinine 0.86 Estim Creat Clear Calc 101.63 Est GFR (MDRD) Non-Af 80 BUN/Creatinine Ratio 6.7 L Glucose 104 H Calcium 9.5 Total Bilirubin 0.45 Direct Bilirubin < 0.08 AST 30 ALT 17 Alkaline Phosphatase 140 H Total Protein 7.1 Albumin 3.6 Globulin 3.5 Lipase 18 Discharge Plan Triage Chief Complaint: Nausea/Vomiting ED Provider: Nicolás Nieves Dx/Rx/DC Orders Clinical Impression: Gastroenteritis Instructions: Viral Gastroenteritis Prescriptions: New ondansetron 4 mg tablet,disintegrating 4 mg PO Q6H PRN PRN (Reason: Nausea) Qty: 15 0RF No Action budesonide-formoterol [Symbicort] 160-4.5 mcg/actuation HFA aerosol inhaler 2 puff INHALATION BID ezetimibe [Zetia] 10 mg tablet 10 mg PO QDAY Qty: 30 11RF cyclobenzaprine 5 mg tablet 5 mg PO Q8H atorvastatin 80 mg Tablet 80 mg PO DAILY metoclopramide HCl [Reglan] 10 mg tablet 10 mg PO Q6H PRN (Reason: NAUSEA AND VOMTING ) Qty: 20 0RF cephalexin 500 mg capsule 500 mg PO Q6 Qty: 12 0RF sulfamethoxazole-trimethoprim [Bactrim DS] 800-160 mg tablet 1 tab PO BID 7 Days Qty: 14 0RF hydroxyzine HCl 25 mg tablet 25 mg PO TID PRN (Reason: anxiety) Qty: 20 0RF Emgality Syringe 120 mg/mL syringe 120 mg subcut Q30D Patient Comments: END OF MONTH trazodone 50 mg tablet 50 - 100 mg PO QHS gabapentin 300 mg capsule 300 mg PO TID naratriptan 2.5 mg tablet 2.5 mg PO BID PRN (Reason: migraines) Rx Instructions: can repeat dose, two hours after first dose taken. do not exceed more than two doses in 24 hours. fluticasone propionate 50 mcg/actuation spray,suspension 2 spray INTRANASAL Q12H Patient Comments: [NO ORIGINAL SIG] tramadol 50 mg tablet 50 mg PO TID levothyroxine 200 mcg tablet 200 mcg PO DAILY ondansetron 4 mg tablet,disintegrating 4 mg PO Q8H PRN PRN (Reason: Nausea) Qty: 10 0RF citalopram 40 mg tablet 40 mg PO DAILY valsartan 160 mg tablet 160 mg PO BID Qty: 180 3RF isosorbide mononitrate 30 mg tablet extended release 24 hr 30 mg PO DAILY Qty: 30 11RF Primary Care Provider: Nasreen Sutton Referrals: Nasreen Sutton MD [Primary Care Provider] - As Needed Print Language: Venezuelan Disposition Disposition: Home, Self Care
[2024-05-01 12:07] LABS: Absolute Lymphocyte Count 1.37 X10^3/uL (0.83-4.51); Absolute Neutrophil Count 6.8 X10^3/uL (2.0-7.7); Basophil# 0.04 X10^3/uL; Basophil% 0.4 % (0-1); Eosinophil# 0.19 X10^3/uL; Eosinophils% 2.1 % (0-5); Hematocrit 42.6 % (37-47); Hemoglobin 13.4 g/dL (12.0-15.0); Lymphocyte # 1.37 X10^3/ul (0.83-4.51); Lymphocyte % 15.3 % (19-41); Mean Corp Hgb Conc 31.5 g/dL (32-36); Mean Corpuscular Volume 95.3 fL (81-99); Monocyte# 0.55 X10^3/uL; Monocyte% 6.1 % (0-10); NRBC Flagged by Analyzer 0 % (0-5); Neutrophil # 6.79 X10^3/uL (2.7-7.7); Neutrophil % 75.8 % (47-70); Platelet Count 304 K/mm3 (150-450); RBC Distribution Width CV 16.4 % (11.6-14.6); RBC Distribution Width SD 57.1 fl (35.1-43.9); Red Blood Count 4.47 M/mm3 (4.2-5.4)
[2024-05-01] MEDS: 0.9% Normal Saline (1000mL) 1,000 ML 1000 ML IV (12:08)
[2024-05-01] MEDS: Ondansetron 4 MG/2 ML Vial IV (12:08)
[2024-05-01 12:35] VITALS: BP 166/105; PULSE 82; RESP 16; O2SAT 93
[2024-05-01 13:28] LABS: Lipase 18 U/L (13-75)
[2024-05-01 13:50] LABS: AST(SGOT) 30 U/L (<=31); Alanine Aminotransfer ALT/SGPT 17 U/L (<=34); Albumin, Serum 3.6 g/dL (3.5-5.0); Alkaline Phosphatase 140 U/L (35-104); Anion Gap 20 (5-15); BUN 6 mg/dL (4-19); BUN/Creat Ratio 6.7 RATIO (10-20); Bilirubin, Direct < 0.08 mg/dL (0.00-0.30); Calcium,Total 9.5 mg/dL (7.6-11.0); Carbon Dioxide 19.6 mmol/L (21.0-32.0); Chloride 100 mmol/L (98-108); Creatinine, Serum 0.86 mg/dL (0.70-1.20); EST Glomerular Filtration Rate 80 (>60); Estimated Creatinine Clearance 101.63 ml/min (50-250); Globulin 3.5 g/dL (2.2-4.2); Glucose 104 mg/dL (70-99); Potassium 3.4 mmol/L (3.3-5.1); Protein, Total 7.1 g/dL (5.9-8.4); Sodium Level 140 mmol/L (133-145); Total Bilirubin 0.45 mg/dL (0.00-1.30)
--- NOTE | 2024-05-01 13:58 | CM.ED ---
Social Work SW met with patient to discuss recommendations that have been given to patient to help decrease medical and psychiatric symptoms that bring patient to this and other emergency rooms as this is her 7th ER visit this year. SW reviewed recommendations of counseling, the [facility], visiting friends or family, talking a walk daily, trying to eat healthy foods and going to her PCP. Patient states she does not feel well enough to follow up on any recommendations. SW discussed with patient that following even one recommendation could improve patients outcomes. Patient stated she would let SW know when she felt up to it. Nicolette Hall, HAT BODY SORTER, VOICE AND DATA TECHNICIAN
[2024-05-01 14:00] VITALS: BP 118/66; PULSE 78; RESP 18; O2SAT 98
[2024-05-01 14:32] VITALS: BP 157/97; PULSE 78; RESP 16; TEMP 36.6; O2SAT 98
== END 2024-05-01 14:33 | disposition home or self-care (01) ==
PROVIDERS: Emergency Provider Emergency Medicine; PCP Family Medicine; Visit Provider Emergency Medicine
DX: K52.9 Noninfective gastroenteritis and colitis, unspecified (principal); J44.9 Chronic obstructive pulmonary disease, unspecified; E78.00 Pure hypercholesterolemia, unspecified; I10 Essential (primary) hypertension; Z79.51 Long term (current) use of inhaled steroids; Z79.899 Other long term (current) drug therapy
CPT/HCPCS: 96361; 96374; 99283; 80048; 80076; 83690; 85025; A4216; J2405

== ENCOUNTER 2024-05-04 20:16 | Inpatient (IN) | payer MEDICARE, MEDICAID, SELFPAY ==
[2024-05-04] VITALS (12 sets, daily range): BP systolic 62–132; BP diastolic 48–94; PULSE 45–60; RESP 14–20; TEMP 36.6–36.7; O2SAT 91–97; BMI 48.4
--- NOTE | 2024-05-04 20:39 | EX.ED.CRITCA ---
HPI History of Present Illness Chief Complaint: Alt LOC Informant: patient and EMS Narrative Narrative: Presents by EMS from home reported sudden worsening altered mental status 3 hours prior to arrival. EMS brought in hypotensive bradycardic. Patient denies cough. She has been having on and off nausea and vomiting. She was seen in the ER 3 days ago. She denies any diarrhea. States she vomited yesterday and today no hematemesis. No abdominal pain. No chest pains. She is a diabetic blood glucose 130. Discussed further with patient if she is on chronic steroids she states she does take prednisone daily however stopped it 2 weeks ago due to not feeling well. Denies history of [place]'s disease. She also reported to nursing that she is on metoprolol however this is not seen on her medications. [facility] Medical History Kidney failure MARYANA (acute kidney injury) Fatigue MARYANA (acute kidney injury) Walker as ambulation aid Ambulates with cane Low iron History of renal disease High cholesterol DVT (deep venous thrombosis) PONV (postoperative nausea and vomiting) Stroke/cerebrovascular accident Sleep apnea Fall Cardiology follow-up encounter Scalp hematoma Pulmonary embolism Post-menopausal Thyroid disease Injury of head and neck Dietary restriction Difficulty swallowing BiPAP (biphasic positive airway pressure) dependence COPD (chronic obstructive pulmonary disease) Shortness of breath on exertion Leg cramps History of pain when walking History of edema History of echocardiogram History of stress test Syncope Abnormal glucose Noncompliance DAVY treated with BiPAP UTI (urinary tract infection) Vitamin D deficiency Restless leg syndrome Vitamin B12 deficiency Iron deficiency anemia History of chronic back pain Wears glasses Arthritis Non-smoker Hydronephrosis Depression Anemia Migraine headache Chronic kidney disease Diabetes mellitus Gout Celiac disease Hyperlipidemia GERD (gastroesophageal reflux disease) Dyspnea on exertion Chest pain Hypersomnia Cardiac murmur Microcytic anemia Hypertension Morbid obesity with BMI of 40.0-44.9, adult Asthma Hypothyroidism Anxiety Home Medications ?Medication ?Instructions ?Recorded ?Last Taken ?Type citalopram 40 mg tablet 40 mg PO DAILY DEPRESSION/ANXIETY 07/27/19 04/05/24 History budesonide-formoterol HFA 160 2 puff inhalation BID COPD 04/02/20 04/05/24 History mcg-4.5 mcg/actuation aerosol inhaler (Symbicort) metoclopramide HCl 10 mg tablet 10 mg PO Q6H PRN NAUSEA AND 11/10/23 Unknown Rx (Reglan) VOMTING #20 tabs atorvastatin 80 mg tablet 80 mg PO DAILY CHOLESTEROL 02/10/23 04/04/24 History cyclobenzaprine 5 mg tablet 5 mg PO Q8H MUSCLE SPASMS 02/10/23 04/05/24 History galcanezumab-gnlm 120 mg/mL 120 mg subcut Q30D migraines 07/29/23 Unknown History subcutaneous syringe (Emgality) trazodone 50 mg tablet 50 - 100 mg PO QHS SLEEP 07/29/23 04/04/24 History gabapentin 300 mg capsule 300 mg PO TID pain 09/30/23 04/05/24 History naratriptan 2.5 mg tablet 2.5 mg PO BID PRN migraines 10/01/23 Unknown History ezetimibe 10 mg tablet (Zetia) 10 mg PO QDAY cholesterol #30 tabs 11/28/23 04/05/24 Rx fluticasone propionate 50 2 spray intranasal Q12H allergies 01/20/24 Unknown History mcg/actuation nasal spray,suspension levothyroxine 200 mcg tablet 200 mcg PO DAILY thyroid 01/20/24 04/05/24 History tramadol 50 mg tablet 50 mg PO TID pain 01/20/24 04/05/24 History cephalexin 500 mg capsule 500 mg PO Q6 #12 CAPSULES 03/01/24 Unknown Rx sulfamethoxazole 800 1 tab PO BID 7 days #14 tabs 03/15/24 Unknown Rx mg-trimethoprim 160 mg tablet (Bactrim DS) isosorbide mononitrate 30 mg 30 mg PO DAILY HEART #30 tabs 03/30/24 04/05/24 Rx tablet,extended release 24 hr valsartan 160 mg tablet 160 mg PO BID blood pressure #180 03/30/24 04/05/24 Rx tabs ondansetron 4 mg disintegrating 4 mg PO Q8H PRN PRN Nausea #10 tabs 04/21/24 Unknown Rx tablet hydroxyzine HCl 25 mg tablet 25 mg PO TID PRN anxiety #20 tabs 04/22/24 Unknown Rx ondansetron 4 mg disintegrating 4 mg PO Q6H PRN PRN Nausea #15 tabs 05/01/24 Unknown Rx tablet Allergy/AdvReac Type Severity Reaction Status Date / Time hydrochlorothiazide AdvReac Intermediate Contributes Verified 05/01/24 10:37 to gout naproxen (From Naprosyn) AdvReac Intermediate Nausea Verified 05/01/24 10:37 aspirin AdvReac Nausea Verified 05/01/24 10:37 Penicillins AdvReac Other Verified 05/04/24 20:18 Family History Father , Age 72 Hypertension Mother CAD (coronary artery disease) Myocardial infarction, Onset Age: 55 Hypertension Sister CAD (coronary artery disease) Brother Cancer Surgical History History of cardiac catheterization History of History of carpal tunnel surgery of right wrist History of carpal tunnel surgery of left wrist Hx of cystoscopy History of left heart catheterization (11/11/20) history of uterine ablation Social History (Updated 05/04/24 @ 23:[address] Pamela Saleem MD) household members: spouse housing: apartment Smoking Status: Never smoker alcohol intake: never substance use type: does not use caffeine: No ROS ROS ED Constitutional Constitutional ED: Denies chills, fever(s) or sweats ENT ENT ED: Denies sore throat Cardiovascular Cardiovascular: Denies chest pain, leg edema, palpitations or racing heartbeat Respiratory/Chest Respiratory/Chest: Denies cough, dyspnea or dyspnea on exertion Gastrointestinal Gastrointestinal: Reports nausea and vomiting; Denies abdominal pain or diarrhea Genitourinary Genitourinary ED: Denies dysuria, hematuria or urinary frequency Musculoskeletal Musculoskeletal: Denies back pain, extremity pain or neck pain Integumentary Denies rash or wounds Neurologic Neurologic: Denies headache(s), paresthesias or weakness EXAM Physical Exam Const Vital Signs: 05/04/24 20:16 05/04/24 20:52 05/04/24 21:20 Temperature 98 F Temperature Source Temporal Pulse Rate 45 L 58 L Respiratory Rate 19 H 14 Blood Pressure 62/48 L 102/58 L Blood Pressure Mean 52 71 Pulse Ox 91 95 91 Oxygen Delivery Method Room Air Room Air 05/04/24 22:00 05/04/24 22:20 05/04/24 22:30 Temperature Temperature Source Pulse Rate 60 Respiratory Rate 20 H Blood Pressure 104/71 103/74 107/72 Blood Pressure Mean 81 85 83 Pulse Ox 92 92 Oxygen Delivery Method 05/04/24 22:40 Temperature Temperature Source Pulse Rate 59 L Respiratory Rate 17 Blood Pressure 97/64 Blood Pressure Mean 76 Pulse Ox Oxygen Delivery Method Positive well nourished, well developed and obese Constitutional Narrative: Following commands, talking. General Appearance ED: well developed and NAD Nutritional Appearance: obese HEENT HEENT Narrative: Mild dry mucosal membranes. normocephalic and atraumatic Neck full ROM Chest Wall Chest: Negative for tenderness Resp normal respiratory effort and normal air movement Effort and Inspection: symmetric chest movement; Negative for respiratory distress Cardio regular rhythm and no murmurs Rate: bradycardia Peripheral Pulses: pulses 2+ throughout GI normal to inspection, nondistended, normoactive bowel sounds and non-tender Palpation: Negative for guarding or rebound tenderness present Extremity normal to inspection General Extremety ED: Negative for edema or tenderness General Extremity: Negative for edema Neuro oriented x3 and no sensory deficits noted Sensorium / Orientation: awake and alert Skin no rashes or lesions noted and no wounds MDM MDM MDM Narrative Medical decision making narrative: Interventions / MDM: Differential diagnosis: Secondary adrenal insufficiency, sepsis, hypotension, nausea vomiting, renal insufficiency Diagnosis considered but do not suspect: Pneumonia however x-ray negative. My EKG interpretation: No ST changes. T wave inversions anterior inferior leads. Similar findings March 2024 last month. Imaging independently reviewed and interpreted by myself: 1 view chest x-ray: No acute process. External documents reviewed: Echocardiogram August 2023 EF of 55%. Test considered but not ordered:N/A ED course: Patient presented blood pressure 62/48 pulse of 45. Fluids was initiated, in the room blood pressure systolic 102. Sepsis labs ordered. Will place Cueto to monitor I's and O's. She reported prednisone use daily up to 2 weeks ago. Will send for cortisol will start stress dose Solu-Cortef. She is alert and oriented x 3. 2204: Blood pressure 104/71. Total of 2 L of fluids given. This was more than 30 cc/kg per ideal body weight. She is more awake per nursing. Heart rate maintained in the 50s. White count around 12.2. Hemoglobin 10.7. Sinus rate of 55, 2215: Potassium returned at 2.7. Lactic acid 4.3. Magnesium added. Oral potassium ordered. Procalcitonin 0.23. Creatinine 1.29 up from 0.86, 3 days ago. Awaiting urine results. 2234: Urine returning positive for nitrites at this time. This is from Cueto catheter. Negative leukocytes and white cells. Urine culture pending. She has history of Pseudomonas. 2249: Discussed with hospitalist Dr. Saleem, initial plans for boarding for Zosyn, however with only nitrites, this was not started. Blood pressure systolic 125 heart rate in the 60s in the room. Her lactic acid secondary to her initial hypotension and not sepsis. She will be admitted to PCU. Re-evaluation: stable Disposition discussed with patient/family/significant other: Patient Case discussed with consulting clinician: Hospitalist This note was generated with Couple dictation software. It may contain incorrect words, spelling, and punctuation that were not noted in checking the note before signing. Lab Data Attestation: I reviewed the patient's lab results. Labs: Laboratory Results - last 24 hr 05/04/24 05/04/24 05/04/24 20:32 20:57 21:00 WBC 12.2 H RBC 3.54 L Hgb 10.7 L Hct 34.1 L MCV 96.3 MCH 30.2 MCHC 31.4 L RDW Std Deviation 58.2 H RDW Coeff of Alfredo 16.4 H Plt Count 334 MPV 10.6 Immature Gran % (Auto) 0.600 Neut % (Auto) 69.8 Lymph % (Auto) 19.4 [place] % (Auto) 7.8 Eos % (Auto) 1.8 Baso % (Auto) 0.6 Absolute Neuts (auto) 8.6 H Absolute Lymphs (auto) 2.37 Nucleated RBC % 0 PT 17.6 H INR 1.4 APTT 30.8 Sodium 139 Potassium 2.7 L* Chloride 99 Carbon Dioxide 26.0 Anion Gap 14 BUN 7 Creatinine 1.29 H Estim Creat Clear Calc 66.90 Est GFR (MDRD) Non-Af 50 L BUN/Creatinine Ratio 5.6 L Glucose 102 H Lactic Acid 4.3 H* Calcium 9.0 Magnesium 1.8 Total Bilirubin 0.28 AST 25 ALT 14 Alkaline Phosphatase 112 H Total Protein 5.6 L Albumin 3.1 L Globulin 2.5 Albumin/Globulin Ratio 1.2 Procalcitonin 0.23 H Cortisol PM Sample 11.80 H Urine Color Urine Clarity Urine pH Ur Specific [place] Urine Protein Urine Glucose (UA) Urine Ketones Urine Occult Blood Urine Nitrite Urine Bilirubin Urine Urobilinogen Ur Leukocyte Esterase Urine RBC Urine WBC Ur Squamous Epith Cells Urine Bacteria Urine Mucus 05/04/24 21:15 WBC RBC Hgb Hct MCV MCH MCHC RDW Std Deviation RDW Coeff of Alfredo Plt Count MPV Immature Gran % (Auto) Neut % (Auto) Lymph % (Auto) Luce % (Auto) Eos % (Auto) Baso % (Auto) Absolute Neuts (auto) Absolute Lymphs (auto) Nucleated RBC % PT INR APTT Sodium Potassium Chloride Carbon Dioxide Anion Gap BUN Creatinine Estim Creat Clear Calc Est GFR (MDRD) Non-Af BUN/Creatinine Ratio Glucose Lactic Acid Calcium Magnesium Total Bilirubin AST ALT Alkaline Phosphatase Total Protein Albumin Globulin Albumin/Globulin Ratio Procalcitonin Cortisol PM Sample Urine Color Yellow Urine Clarity Clear Urine pH 6.0 Ur Specific [place] 1.015 Urine Protein 15 H Urine Glucose (UA) Normal Urine Ketones Negative Urine Occult Blood 10 H Urine Nitrite Positive H Urine Bilirubin Negative Urine Urobilinogen Normal Ur Leukocyte Esterase Negative Urine RBC 0 SEEN Urine WBC 0-5 SEEN Ur Squamous Epith Cells 0 SEEN Urine Bacteria 0 SEEN Urine Mucus 0 SEEN Radiography Diagnostic Testing: Clinical Impression(s) from Imaging Studies Chest X-Ray 05/04/24 21:20 IMPRESSION: Cardiomegaly. No focal consolidation. Reading Location: [facility] Critical Care Time Critical Care Time: Yes Critical care time (excluding procedures): 30-74 minutes, Discussing w/Patient &/or Family/Industrial Services Worker, Discussing w/Consultants, Arranging Admission or Transfer, Performing Direct Patient Care at Bedside and - (40 minutes) Discharge Plan Dx/Rx/DC Orders Clinical Impression: Transient hypotension, Lactic acidosis, Acute renal insufficiency, Hypokalemia, Diabetes mellitus Disposition Disposition: Acute Care Hospital [facility] Discharge Date/Time: 05/04/24 23:41
[2024-05-04] MEDS: Hydrocortisone Sod Succinate 100 MG/2 ML Vial IV (20:57)
[2024-05-04] MEDS: 0.9% Normal Saline (1000mL) 1,000 ML 999 ML IV (20:57)
[2024-05-04 21:12] LABS: Absolute Lymphocyte Count 2.37 X10^3/uL (0.83-4.51); Absolute Neutrophil Count 8.6 X10^3/uL (2.0-7.7); Basophil# 0.07 X10^3/uL; Basophil% 0.6 % (0-1); Eosinophil# 0.22 X10^3/uL; Eosinophils% 1.8 % (0-5); Hematocrit 34.1 % (37-47); Hemoglobin 10.7 g/dL (12.0-15.0); Lymphocyte # 2.37 X10^3/ul (0.83-4.51); Lymphocyte % 19.4 % (19-41); Mean Corp Hgb Conc 31.4 g/dL (32-36); Mean Corpuscular Hgb 30.2 pg (27.0-32.0); Mean Corpuscular Volume 96.3 fL (81-99); Mean Platelet Vol. 10.6 fl (6.2-12.0); Monocyte# 0.95 X10^3/uL; Monocyte% 7.8 % (0-10); NRBC Flagged by Analyzer 0 % (0-5); Neutrophil # 8.56 X10^3/uL (2.7-7.7); Neutrophil % 69.8 % (47-70); Platelet Count 334 K/mm3 (150-450); RBC Distribution Width CV 16.4 % (11.6-14.6); RBC Distribution Width SD 58.2 fl (35.1-43.9); Red Blood Count 3.54 M/mm3 (4.2-5.4); White Blood Count 12.2 K/mm3 (4.4-11.0)
[2024-05-04 21:19] LABS: Bacteria 0 SEEN /hpf (None Seen); Mucous, Urine 0 SEEN /hpf (<or=2+); Squamous Epithelial Cells - UA 0 SEEN /hpf (5-10)
--- NOTE | 2024-05-04 21:20 | RAD_ITS ---
PROCEDURE: CHEST 1 VIEW (PORTABLE) REASON FOR EXAM: Hypotension TECHNIQUE: Frontal view of the chest. COMPARISON: April 05, 2024 FINDINGS: Heart size is mildly enlarged. The lungs are clear. The bones are unremarkable. RAD/Chest 1 View (Portable) IMPRESSION: Cardiomegaly. No focal consolidation. [facility]
[2024-05-04 21:26] LABS: International Normalized Ratio 1.4; Prothrombin Time (Protime)PT. 17.6 SECONDS (11.7-14.9)
[2024-05-04 21:27] LABS: Partial Thromboplast Time 30.8 Seconds (24.1-36.2)
--- NOTE | 2024-05-04 21:57 | ED.RN ---
Pt unable to tell this nurse what medications she takes on the daily. Pt listing meds that are not in her med rec hx and unsure of the milligrams.
[2024-05-04 22:07] LABS: Procalcitonin 0.23 ng/mL (<=0.10)
[2024-05-04 22:12] LABS: Lactic Acid 4.3 mmol/L (0.0-2.0)
[2024-05-04 22:13] LABS: ALB/GLOB Ratio 1.2 RATIO (0.9-2.4); AST(SGOT) 25 U/L (<=31); Alanine Aminotransfer ALT/SGPT 14 U/L (<=34); Albumin, Serum 3.1 g/dL (3.5-5.0); Alkaline Phosphatase 112 U/L (35-104); Anion Gap 14 (5-15); BUN 7 mg/dL (4-19); BUN/Creat Ratio 5.6 RATIO (10-20); Chloride 99 mmol/L (98-108); Creatinine, Serum 1.29 mg/dL (0.70-1.20); EST Glomerular Filtration Rate 50 (>60); Globulin 2.5 g/dL (2.2-4.2); Glucose 102 mg/dL (70-99); Potassium 2.7 mmol/L (3.3-5.1); Protein, Total 5.6 g/dL (5.9-8.4); Sodium Level 139 mmol/L (133-145); Total Bilirubin 0.28 mg/dL (0.00-1.30)
[2024-05-04 22:22] LABS: Color, Urine Yellow (Yellow); Glucose, Dipstick Normal (Normal); Ketone-Dipstick Negative (Negative); Leukocyte Esterase-Dipstick Negative /ul (Negative); Nitrite-Dipstick Positive (Negative); Occult Blood-Urine 10 /ul (Negative); Protein-Dipstick 15 mg/dl (Negative); Specific Gravity, Urine 1.015 (1.002-1.030); Urine Bilirubin Dipstick Negative (Negative); Urine Clarity Clear (Clear); Urine Urobilinogen Normal (Normal)
[2024-05-04 22:31] LABS: Red Blood Cells-Urine 0 SEEN /hpf (0-5); White Blood Cells 0-5 SEEN /hpf (0-5)
--- NOTE | 2024-05-04 22:34 | PCM.HP.STD ---
HPI - General General Date of Admission: 05/04/24 Date of Service: 05/04/24 Chief Complaint: Altered mental status, N/V HPI Narrative The patient is a 53 y/o F w/ PMHx: Morbid obesity, DAVY on BIPAP, COPD, HTN, HLD, Hypothyroidism, Hx CVA, Hx VTE (DVT, PE), Chronic anemia/Fe deficiency anemia, Morbid obesity, RLS, Chronic migraines, Celiac disease, Anxiety and Depression, Diabetes mellitus type II, CKD stage III, unclear subtype per GFR trending, recent ED evaluation 05/01/24 with with history of fatigue, malaise, nausea and emesis for 4 days with suspected viral illness discharged home with Zofran and recommended continued oral hydration who now re-presents to the [facility] ED on 05/04/24 with history of altered mental status starting approximately 3 hours prior to ED arrival brought by EMS noted to be hypotensive and bradycardic with recent visit as noted with nausea and emesis with GI losses with no abdominal pain nor any diarrhea with patient reporting that she had been on steroids and from review of medications it is noted last filled on 04/10/2024 but this was only a short course for chronic sinusitis prescribed by Dr. Sutton. Patient notes that her son and her also had similar recent symptoms. Workup in the ED included T98 temporal, heart rate 45, BP 62/48, respiratory rate 19, 91% on room air with most recent repeat vitals heart rate 58, BP 102/58, respiratory rate 14, 91% room air, CBC with WC 12.2, hemoglobin 10.7, MCV 96.3, platelet 334 with left shift, coags with PT 17.6 otherwise unremarkable, CMP with potassium 2.7, BUN/creatinine 7/1.29, GFR 50, glucose 102, lactic acid 4.3, hepatic profile with alk phos 112 otherwise not marked appearing, cortisol pm sample 11.80 minimally above range, procalcitonin 0.23, urinalysis specific [place] 1.015, protein 15, occult blood 10, positive nitrite, negative leukocyte Estrace, chest x-ray with cardiomegaly with no acute cardiopulmonary findings otherwise, EKG sinus rhythm with T wave inversions in the anterior inferior leads similar to previous EKG. In the ED patient ministered 1 L normal saline, potassium 40 mill equivalent p.o. x 1, hydrocortisone 100 mg IV x 1. PFSH Medical History Kidney failure MARYANA (acute kidney injury) Fatigue MARYANA (acute kidney injury) Walker as ambulation aid Ambulates with cane Low iron History of renal disease High cholesterol DVT (deep venous thrombosis) PONV (postoperative nausea and vomiting) Stroke/cerebrovascular accident Sleep apnea Fall Cardiology follow-up encounter Scalp hematoma Pulmonary embolism Post-menopausal Thyroid disease Injury of head and neck Dietary restriction Difficulty swallowing BiPAP (biphasic positive airway pressure) dependence COPD (chronic obstructive pulmonary disease) Shortness of breath on exertion Leg cramps History of pain when walking History of edema History of echocardiogram History of stress test Syncope Abnormal glucose Noncompliance DAVY treated with BiPAP UTI (urinary tract infection) Vitamin D deficiency Restless leg syndrome Vitamin B12 deficiency Iron deficiency anemia History of chronic back pain Wears glasses Arthritis Non-smoker Hydronephrosis Depression Anemia Migraine headache Chronic kidney disease Diabetes mellitus Gout Celiac disease Hyperlipidemia GERD (gastroesophageal reflux disease) Dyspnea on exertion Chest pain Hypersomnia Cardiac murmur Microcytic anemia Hypertension Morbid obesity with BMI of 40.0-44.9, adult Asthma Hypothyroidism Anxiety Home Medications ?Medication ?Instructions ?Recorded ?Last Taken ?Type citalopram 40 mg tablet 40 mg PO DAILY DEPRESSION/ANXIETY 07/27/19 04/05/24 History budesonide-formoterol HFA 160 2 puff inhalation BID COPD 04/02/20 04/05/24 History mcg-4.5 mcg/actuation aerosol inhaler (Symbicort) metoclopramide HCl 10 mg tablet 10 mg PO Q6H PRN NAUSEA AND 01/07/23 Unknown Rx (Reglan) VOMTING #20 tabs atorvastatin 80 mg tablet 80 mg PO DAILY CHOLESTEROL 02/10/23 04/04/24 History cyclobenzaprine 5 mg tablet 5 mg PO Q8H MUSCLE SPASMS 02/10/23 04/05/24 History galcanezumab-gnlm 120 mg/mL 120 mg subcut Q30D migraines 07/29/23 Unknown History subcutaneous syringe (Emgality) trazodone 50 mg tablet 50 - 100 mg PO QHS SLEEP 07/29/23 04/04/24 History gabapentin 300 mg capsule 300 mg PO TID pain 09/30/23 04/05/24 History naratriptan 2.5 mg tablet 2.5 mg PO BID PRN migraines 10/01/23 Unknown History ezetimibe 10 mg tablet (Zetia) 10 mg PO QDAY cholesterol #30 tabs 11/28/23 04/05/24 Rx fluticasone propionate 50 2 spray intranasal Q12H allergies 01/20/24 Unknown History mcg/actuation nasal spray,suspension levothyroxine 200 mcg tablet 200 mcg PO DAILY thyroid 01/20/24 04/05/24 History tramadol 50 mg tablet 50 mg PO TID pain 01/20/24 04/05/24 History cephalexin 500 mg capsule 500 mg PO Q6 #12 CAPSULES 03/01/24 Unknown Rx sulfamethoxazole 800 1 tab PO BID 7 days #14 tabs 03/15/24 Unknown Rx mg-trimethoprim 160 mg tablet (Bactrim DS) isosorbide mononitrate 30 mg 30 mg PO DAILY HEART #30 tabs 03/30/24 04/05/24 Rx tablet,extended release 24 hr valsartan 160 mg tablet 160 mg PO BID blood pressure #180 03/30/24 04/05/24 Rx tabs ondansetron 4 mg disintegrating 4 mg PO Q8H PRN PRN Nausea #10 tabs 04/21/24 Unknown Rx tablet hydroxyzine HCl 25 mg tablet 25 mg PO TID PRN anxiety #20 tabs 04/22/24 Unknown Rx ondansetron 4 mg disintegrating 4 mg PO Q6H PRN PRN Nausea #15 tabs 05/01/24 Unknown Rx tablet Allergy/AdvReac Type Severity Reaction Status Date / Time hydrochlorothiazide AdvReac Intermediate Contributes Verified 05/01/24 10:37 to gout naproxen (From Naprosyn) AdvReac Intermediate Nausea Verified 05/01/24 10:37 aspirin AdvReac Nausea Verified 05/01/24 10:37 Penicillins AdvReac Other Verified 05/04/24 20:18 Family History Father , Age 72 Hypertension Mother CAD (coronary artery disease) Myocardial infarction, Onset Age: 55 Hypertension Sister CAD (coronary artery disease) Brother Cancer Surgical History History of cardiac catheterization History of History of carpal tunnel surgery of right wrist History of carpal tunnel surgery of left wrist Hx of cystoscopy History of left heart catheterization (11/11/20) history of uterine ablation Social History (Updated 05/04/24 @ 23:[address] Pamela Saleem MD) household members: spouse housing: apartment Smoking Status: Never smoker alcohol intake: never substance use type: does not use caffeine: No ROS ROS Narrative Admission Review of Systems: CONSTITUTIONAL: No weight loss, fever, chills, + weakness or fatigue. HEENT: Eyes: No visual loss, blurred vision, double vision or yellow sclerae. Ears, Nose, Throat: No hearing loss, sneezing, congestion, runny nose or sore throat. SKIN: No rash or itching, lesions, wounds. CARDIOVASCULAR: No chest pain, chest pressure or chest discomfort, palpitations, edema, orthopnea, syncopal events. RESPIRATORY: No shortness of breath, cough or sputum, wheezing, hemoptysis. GASTROINTESTINAL: + anorexia, nausea, vomiting. No diarrhea, abdominal pain, melena, BRBPR. GENITOURINARY: No dysuria, frequency, urgency or retention. NEUROLOGICAL: + Chronic migraines, altered mental status, history of previous stroke. No syncope, paralysis, ataxia, numbness or tingling in the extremities, focal weakness, change in bowel or bladder control, seizure. MUSCULOSKELETAL: + muscle, back pain, joint pain or stiffness. HEMATOLOGIC: + Chronic anemia. No marked history of easy bleeding or bruising. LYMPHATICS: No enlarged nodes. No history of splenectomy. PSYCHIATRIC: + History of anxiety and depression. ENDOCRINOLOGIC: No reports of sweating, cold or heat intolerance. No polyuria or polydipsia. ALLERGIES: + History of allergic rhinitis. Vital Signs Vital Signs Vital Signs: 05/04/24 20:16 05/04/24 20:52 05/04/24 21:20 Temperature 98 F Temperature Source Temporal Pulse Rate 45 L 58 L Respiratory Rate 19 H 14 Blood Pressure 62/48 L 102/58 L Blood Pressure Mean 52 71 Pulse Ox 91 95 91 Oxygen Delivery Method Room Air Room Air 05/04/24 22:00 Temperature Temperature Source Pulse Rate Respiratory Rate Blood Pressure 104/71 Blood Pressure Mean 81 Pulse Ox 92 Oxygen Delivery Method Weight Weight: 282 lb 3.067 oz Body Mass Index (BMI) 48.4 Physical Exam Narrative Physical Examination: General: Awaken to stimuli but is fatigued, alert, able to answer orientation questions appropriately, remains cooperative, seated upright in ED bed, fatigued appearing. Skin: Normal color, normal turgor, no icterus, no cyanosis except occasional staged ecchymoses, bilateral lower extremity venous stasis skin changes. HEENT: AT/NC, EOM left eye intact, right eye has lid deformity and she is unable to really lift this, PERRLA, dry MM, no carotid bruits or JVD noted. Lungs: Diminished, distant likely secondary to habitus, greater bases, appropriate effort, no evidence of distress no rales, ronchi or wheezing. Heart: Mildly bradycardic with regular rhythm; no gallop, rub audible. Abdomen: Soft, morbidly obese, NTTP, distant BS, no obvious distention or HSM however habitus makes examination difficult to discern distention and HSM. Extremities: No cyanosis, no clubbing, mild ankle to distal gonzalez not markedly pitting edema, chronic likely, see skin. Neurological: Patient awake, alert, oriented as noted, cognitive function suspect mildly decreased from intact as significantly fatigued; pupils equally reactive to light and accommodation, cranial nerves gross normal aside from noted issue with right eye deficits secondary to late issues, moving all 4 extremities, strength moderately to severely globally decreased. Psychiatric: Affect appears flat, fatigued, no acute evidence of depressive or anxiety feelings but does have underlying history. Results Lab / Micro Data 05/04/24 20:32 05/04/24 20:32 Labs: Laboratory Results - last 24 hr 05/04/24 20:32: WBC 12.2 H, RBC 3.54 L, Hgb 10.7 L, Hct 34.1 L, MCV 96.3, MCH 30.2, MCHC 31.4 L, RDW Std Deviation 58.2 H, RDW Coeff of Alfredo 16.4 H, Plt Count 334, MPV 10.6, Immature Gran % (Auto) 0.600, Neut % (Auto) 69.8, Lymph % (Auto) 19.4, [place] % (Auto) 7.8, Eos % (Auto) 1.8, Baso % (Auto) 0.6, Absolute Neuts (auto) 8.6 H, Absolute Lymphs (auto) 2.37, Nucleated RBC % 0, Sodium 139, Potassium 2.7 L*, Chloride 99, Carbon Dioxide 26.0, Anion Gap 14, BUN 7, Creatinine 1.29 H, Estim Creat Clear Calc 66.90, Est GFR (MDRD) Non-Af 50 L, BUN/Creatinine Ratio 5.6 L, Glucose 102 H, Calcium 9.0, Total Bilirubin 0.28, AST 25, ALT 14, Alkaline Phosphatase 112 H, Total Protein 5.6 L, Albumin 3.1 L, Globulin 2.5, Albumin/Globulin Ratio 1.2, Procalcitonin 0.23 H, Cortisol PM Sample 11.80 H 05/04/24 20:57: PT 17.6 H, INR 1.4, APTT 30.8, Lactic Acid 4.3 H* 05/04/24 21:15: Urine Color Yellow, Urine Clarity Clear, Urine pH 6.0, Ur Specific [place] 1.015, Urine Protein 15 H, Urine Glucose (UA) Normal, Urine Ketones Negative, Urine Occult Blood 10 H, Urine Nitrite Positive H, Urine Bilirubin Negative, Urine Urobilinogen Normal, Ur Leukocyte Esterase Negative, Urine RBC 0 SEEN, Urine WBC 0-5 SEEN, Ur Squamous Epith Cells 0 SEEN, Urine Bacteria 0 SEEN, Urine Mucus 0 SEEN Imaging Radiology Impression Chest X-Ray 05/04/24 21:20 IMPRESSION: Cardiomegaly. No focal consolidation. Reading Location: [facility] Assessment & Plan Assessment/Plan (1) Gastroenteritis: PLAN: Plan The patient is a 53 y/o F w/ PMHx: Morbid obesity, DAVY on BIPAP, COPD, HTN, HLD, Hypothyroidism, Hx CVA, Hx VTE (DVT, PE), Chronic anemia/Fe deficiency anemia, Morbid obesity, RLS, Chronic migraines, Celiac disease, Anxiety and Depression, Diabetes mellitus type II, CKD stage III, unclear subtype per GFR trending, recent ED evaluation 05/01/24 with with history of fatigue, malaise, nausea and emesis for 4 days with suspected viral illness discharged home with Zofran and recommended continued oral hydration who now re-presents to the [facility] ED on 05/04/24 with history of altered mental status starting approximately 3 hours prior to ED arrival brought by EMS noted to be hypotensive and bradycardic with recent visit as noted with nausea and emesis with GI losses with no abdominal pain nor any diarrhea with patient reporting that she had been on steroids and from review of medications it is noted last filled on 04/10/2024 but this was only a short course for chronic sinusitis prescribed by Dr. Sutton however she stopped it 2 weeks ago secondary to feeling poorly but she is reporting that she has been chronically on steroids and unfortunately compared to medications this is not's verifiable and for unclear reason and is not listed previously during ED or inpatient visit. #1. Acute Encephalopathy secondary to N/V, secondary to suspected viral gastroenteritis with significant hypotension, bradycardia felt secondary to GI losses, poor intake with resulting significant lactic acidosis coupled with potentially taking her hypertensive regimen in addition although she does report possibility of previous chronic steroid usage with abrupt discontinuation but this is not verified: Will admit to PCU, maintain on hydration, stress dose steroids were administered in the ED with cortisol level minimally elevated above upper limit, clarified and she was only on short burst therapy prednisone taper for chronic sinusitis thus will defer additional steroids at this time, if any onset of diarrhea low threshold to obtain enteric and C. difficile, will obtain full respiratory viral panel, maintain on IV PPI, allow clears until clinically improving, will obtain orthostatics and repeat in the a.m. if notable, maintain on fall precautions, PT/OT/case management consult for discharge planning. #2. Hypokalemia: Admission K+ 2.7, magnesium level 1.8, supplementation given, repeat level in AM. #3 Chronic normocytic anemia/iron deficiency anemia: Admission hemoglobin 10.7, MCV 96.3, baseline hemoglobin previously similar, continue to trend, continue iron supplementation. #4 Chronic Kidney Disease Stage III, unclear subtype per GFR trending: Admission BUN/Cr 7/1.29, GFR 50, baseline renal function primarily 1.1-1.4, repeat BMP in AM. #5 Chronic COPD with allergic rhinitis: Will temporally hold home inhaler in the interim transition to ATC budesonide therapy, PRN albuterol, HOB, IS parameters, continue home fluticasone regimen. #6 History CVA: Will continue aspirin, statin, temporally holding hypertensive regimen as noted, clarifying is currently does not appear to be on oral diabetic regimen but noted history. #7 Diabetes mellitus type II with chronic neuropathy: Most recent hemoglobin A1c noted 01/21/2024 with hemoglobin A1c 6.3%, clarifying diabetic regimen is not currently listed, in the interim will maintain on ADA diet, accu checks w/ ISS, continue gabapentin regimen with hold for sedation. #8 Hypertension: Given presentation with low blood pressure likely from recent abrupt steroid stop will temporally hold hypertensive regimen and resume once clinically appropriate. #9 Anxiety and depression: We will continue patient home citalopram, holding trazodone and hydroxyzine with restart once lethargy improved #10. Hypothyroidism: We will continue patient on levothyroxine regimen. #11 Chronic migraines: Patient on Emgality outpatient, if necessary may utilize triptan therapy however will hold currently. Encourage follow-up with neurology as previously arranged. #12 Hyperlipidemia: Continue home statin and Zetia regimen. #13 Morbid Obesity: Weight loss and lifestyle changes encouraged. #14 Restless leg syndrome: Per current list does not appear to be on regimen, clarifying to be certain. #15 DAVY: BiPAP nightly. #16 DVT prophylaxis: Lovenox. #17 CODE status: Patient HCPOA is her and living will is currently in place. Discussed CODE status at length including difference between FULL code, DNR-CCA and DNR-CC status. Following discussions about the differences in these status, requested DNR-CCA, no intubation status. Confirmed with examples. Advanced Care Planning Face to Face Time: 16 minutes. Charges/Coding Visit Charges Inpatient E&M: 06170 Init Hosp L3 Procedures Hospitalists Procedures: 00996 Advncd Care Plan 30 Min
[2024-05-04 22:41] LABS: Magnesium 1.8 mg/dL (1.5-2.2)
[2024-05-04] MEDS: Potassium Chloride Oral Tablet 20 MEQ 40 MEQ PO (22:45)
[2024-05-04] MEDS: Piperacil/Tazobactam 4.5 GM in 0.9% Normal Saline (100mL MB+) 100 ML IV (22:46)
[2024-05-05] VITALS (7 sets, daily range): BP systolic 100–131; BP diastolic 73–94; PULSE 47–63; RESP 16–20; TEMP 35.8–36.7; O2SAT 94–98; BMI 48.7
[2024-05-05] MEDS: Pantoprazole Sodium 40 MG in 0.9% Normal Saline (100mL MB+) 100 ML 330 MG IV ×3 (00:41→21:31)
[2024-05-05] MEDS: 0.9% Normal Saline (1000mL) 1,000 ML 100 ML IV (00:41)
[2024-05-05 01:03] LABS: Bedside Glucose 155 mg/dL (74-106)
[2024-05-05] MEDS: Acetaminophen 325 MG Tablet 650 MG PO ×3 (02:46→21:38)
[2024-05-05] MEDS: Ondansetron 4 MG/2 ML Vial IV (03:25)
[2024-05-05] MEDS: Levothyroxine 100 MCG Tablet 200 MCG PO (05:27)
[2024-05-05] MEDS: Gabapentin 300 MG Capsule PO ×2 (05:27→13:27)
[2024-05-05] MEDS: Nystatin Powder 15gm Bottle 1 APPLIC TOPICAL ×2 (05:27→13:24)
[2024-05-05 05:47] LABS: Bedside Glucose 143 mg/dL (74-106)
[2024-05-05 07:08] LABS: Hemoglobin 10.7 g/dL (12.0-15.0); Mean Corp Hgb Conc 31.5 g/dL (32-36); Mean Corpuscular Hgb 30.1 pg (27.0-32.0); Mean Corpuscular Volume 95.5 fL (81-99); Red Blood Count 3.56 M/mm3 (4.2-5.4); White Blood Count 8.2 K/mm3 (4.4-11.0)
[2024-05-05 07:19] LABS: Absolute Lymphocyte Count 0.87 X10^3/uL (0.83-4.51); Absolute Neutrophil Count 7.1 X10^3/uL (2.0-7.7); Basophil# 0.02 X10^3/uL; Basophil% 0.2 % (0-1); Eosinophil# 0.01 X10^3/uL; Eosinophils% 0.1 % (0-5); Lymphocyte # 0.87 X10^3/ul (0.83-4.51); Lymphocyte % 10.6 % (19-41); Mean Platelet Vol. 10.5 fl (6.2-12.0); Monocyte# 0.25 X10^3/uL; NRBC Flagged by Analyzer 0 % (0-5); Neutrophil # 7.05 X10^3/uL (2.7-7.7); Neutrophil % 85.7 % (47-70); Platelet Count 269 K/mm3 (150-450); RBC Distribution Width CV 16.3 % (11.6-14.6); RBC Distribution Width SD 57.6 fl (35.1-43.9)
[2024-05-05] MEDS: Budesonide Respules 0.5 MG/2 ML AMPUL.NEB. INHALATION ×2 (07:26→20:00)
--- NOTE | 2024-05-05 08:06 | PN.HOSP_ITS ---
Reason for Visit Reason for Visit: Diagnoses Noninfective gastroenteritis and colitis, unspecified (05/04/24) Objective Data Objective Data Vital Signs: Vital Signs Temp Pulse Resp BP Pulse Ox O2 Del Method 96.6 F L 60 18 124/84 H 98 Room Air 05/05/24 03:19 05/05/24 07:26 05/05/24 07:26 05/05/24 03:19 05/05/24 07:26 05/05/24 07:26 Oxygen Delivery Method Room Air Weight: 283 lb 15.286 oz Body Mass Index (BMI) 48.7 Intake & Output: Intake and Output for Last 24 Hours 05/03/24 05/04/24 05/05/24 23:59 23:59 23:59 Intake Total 1100 / 1100 110 / 110 Balance 1100 / 1100 110 / 110 Lab / Micro Data 05/05/24 06:16 05/05/24 06:16 Labs: Laboratory Results - last 24 hr 05/04/24 20:32: WBC 12.2 H, RBC 3.54 L, Hgb 10.7 L, Hct 34.1 L, MCV 96.3, MCH 30.2, MCHC 31.4 L, RDW Std Deviation 58.2 H, RDW Coeff of Alfredo 16.4 H, Plt Count 334, MPV 10.6, Immature Gran % (Auto) 0.600, Neut % (Auto) 69.8, Lymph % (Auto) 19.4, [place] % (Auto) 7.8, Eos % (Auto) 1.8, Baso % (Auto) 0.6, Absolute Neuts (auto) 8.6 H, Absolute Lymphs (auto) 2.37, Nucleated RBC % 0, Sodium 139, P otassium 2.7 L*, Chloride 99, Carbon Dioxide 26.0, Anion Gap 14, BUN 7, C reatinine 1.29 H, Estim Creat Clear Calc 66.90, Est GFR (MDRD) Non-Af 50 L, B UN/Creatinine Ratio 5.6 L, Glucose 102 H, Calcium 9.0, Total Bilirubin 0.28, AST 25, ALT 14, Alkaline Phosphatase 112 H, Total Protein 5.6 L, Albumin 3.1 L, Globulin 2.5, Albumin/Globulin Ratio 1.2, Procalcitonin 0.23 H, Cortisol PM Sample 11.80 H 05/04/24 20:57: PT 17.6 H, INR 1.4, APTT 30.8, Lactic Acid 4.3 H* 05/04/24 21:00: Magnesium 1.8 05/04/24 21:15: Urine Color Yellow, Urine Clarity Clear, Urine pH 6.0, Ur Specific [place] 1.015, Urine Protein 15 H, Urine Glucose (UA) Normal, Urine Ketones Negative, Urine Occult Blood 10 H, Urine Nitrite Positive H, Urine Bilirubin Negative, Urine Urobilinogen Normal, Ur Leukocyte Esterase Negative, Urine RBC 0 SEEN, Urine WBC 0-5 SEEN, Ur Squamous Epith Cells 0 SEEN, Urine Bacteria 0 SEEN, Urine Mucus 0 SEEN 05/05/24 00:07: POC Glucose 155 H 05/05/24 05:25: POC Glucose 143 H 05/05/24 06:16: WBC 8.2, RBC 3.56 L, Hgb 10.7 L, Hct 34.0 L, MCV 95.5, MCH 30.1, MCHC 31.5 L, RDW Std Deviation 57.6 H, RDW Coeff of Alfredo 16.3 H, Plt Count 269, MPV 10.5, Immature Gran % (Auto) 0.400, Neut % (Auto) 85.7 H, Lymph % (Auto) 10.6 L, [place] % (Auto) 3.0, Eos % (Auto) 0.1, Baso % (Auto) 0.2, Absolute Neuts (auto) 7.1, Absolute Lymphs (auto) 0.87, Nucleated RBC % 0 Micro: Microbiology 05/05/24 01:00 Mucosa - Nasopharyngeal Respiratory Panel (PCR) - Final Radiography Diagnostic Testing: Radiology Impression Chest X-Ray 05/04/24 21:20 IMPRESSION: Cardiomegaly. No focal consolidation. Reading Location: [facility] Physical Exam Narrative Seen and examined. Patient's mother is in the room. Patient herself does not answer most questions. She is light sensitive and history of chronic migraine headache. She had nausea vomiting but no diarrhea. Denies abdominal pain. As per the mother, she is also delirious for last 1 to 2 days. No fever Physical exam General: Awake, lethargy, answers questions appropriately. Oriented x3, Cooperative. Morbid obesity BMI 48.7 kg/m? HEENT: Atraumatic, PERRLA, EOMI, Normocephalic Oral: No Gingival or Mucosal Lesions/ Ulcerations Neck: Supple, No JVD, Negative Carotid Bruits Chest wall/Lungs: Air entry diminished in bilateral lung bases. No crepitation/rhonchi Cardiovascular: Regular rate, Regular Rhythm, Normal S1, Normal S2, No M/G/R Abdomen: Bowel Sounds Present, Soft, Non Tender, Non-Distended : No dysuria. No renal angle tenderness. No suprapubic tenderness. Extremities: No edema, Capillary Refill Less than 3 Seconds Skin: No rashes, No breakdown Musculoskeletal: No Tenderness to Palpation of Joints or Extremities Neurological: Cranial nerves II-XII grossly intact, DTR 2+/4. No acute focal neurological deficit. Psych/Mental Status: Flat affect. Anxiety and depression Assessment & Plan Assessment/Plan (1) Gastroenteritis: PLAN: Plan The patient is a 53 y/o F was admitted with altered mental status, lethargy, not verbalization or getting up/ambulation, hypotension. As per family it happened 3 hours prior to arrival. She was hypotensive and bradycardic. Denied cough but having nausea and vomiting intermittently. No diarrhea. Was in ED 3 days ago. No chest/abdominal pain. She stopped prednisone about 2 weeks ago due to not feeling good. Denies history of Collins's disease. On review of medications, she had a short course of steroid on 04/10/2024. #1. Acute Encephalopathy secondary to N/V, secondary to suspected viral gastroenteritis with significant hypotension, bradycardia due to hypovolemia in addition to recent steroid treatment and history of anxiety and depression on antidepressant medications and cystitis: Patient is being admitted in PCU. On IV fluid for rehydration. Serum cortisol level normal. She does not have diarrhea. Prelim urine culture shows GNR more than 100,000 colonies per. 2 acute cystitis due to GNR: Patient had UA positive of nitrite, WBC 0-5. Prelim urine culture growing more than 100,000 colonies of GNR. The patient had 1 dose of Zosyn in ED. Started on IV ceftriaxone for Hypokalemia: Admission K+ 2.7, magnesium level 1.8, supplementation given, repeat potassium is low normal 3.4 #3 Chronic normocytic anemia/iron deficiency anemia: Admission hemoglobin 10.7, MCV 96.3, baseline hemoglobin previously similar, continue to trend, continue iron supplementation. #4 Chronic Kidney Disease Stage IIIa Admission BUN/Cr 7/1.29, GFR 50, baseline renal function primarily 1.1-1.4, repeat creatinine normal 1.04. Bicarb 21. A 14 #5 COPD with allergic rhinitis: Bronchodilator as needed. 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 #8 Hypertension: Given presentation with low blood pressure likely from recent abrupt steroid stop will temporally hold hypertensive regimen and resume once clinically appropriate. #9 Anxiety and depression: Citalopram rate decreased, holding trazodone and hydroxyzine with restart once lethargy improved #10. Hypothyroidism: continue patient on levothyroxine regimen. #11 Chronic migraines: Patient on Emgality outpatient, if necessary may utilize triptan therapy however will hold currently. Encourage follow-up with neurology as previously arranged. #12 Hyperlipidemia: Continue home statin and Zetia regimen. #13 Morbid Obesity: Weight loss and lifestyle changes encouraged. #14 Restless leg syndrome: Per current list does not appear to be on regimen, clarifying to be certain. #15 DAVY: BiPAP nightly. #16 DVT prophylaxis: Lovenox. #17 CODE status: Patient GALLO is her and living will is currently in place. Discussed CODE status at length including difference between FULL code, DNR-CCA and DNR-CC status. Following discussions about the differences in these status, requested DNR-CCA, no intubation status. Confirmed with examples. Microbiology Past 72 Hours 05/04/24 21:15 Urine, Catheterized Urine Culture - Preliminary Gram negative annika 05/05/24 01:00 Mucosa - Nasopharyngeal Respiratory Panel (PCR) - Final Laboratory Results 05/04/24 20:32: WBC 12.2 H, RBC 3.54 L, Hgb 10.7 L, Hct 34.1 L, MCV 96.3, MCH 30.2, MCHC 31.4 L, RDW Std Deviation 58.2 H, RDW Coeff of Alfredo 16.4 H, Plt Count 334, MPV 10.6, Immature Gran % (Auto) 0.600, Neut % (Auto) 69.8, Lymph % (Auto) 19.4, [place] % (Auto) 7.8, Eos % (Auto) 1.8, Baso % (Auto) 0.6, Absolute Neuts (auto) 8.6 H, Absolute Lymphs (auto) 2.37, Nucleated RBC % 0, Sodium 139, P otassium 2.7 L*, Chloride 99, Carbon Dioxide 26.0, Anion Gap 14, BUN 7, C reatinine 1.29 H, Estim Creat Clear Calc 66.90, Est GFR (MDRD) Non-Af 50 L, B UN/Creatinine Ratio 5.6 L, Glucose 102 H, Calcium 9.0, Total Bilirubin 0.28, AST 25, ALT 14, Alkaline Phosphatase 112 H, Total Protein 5.6 L, Albumin 3.1 L, Globulin 2.5, Albumin/Globulin Ratio 1.2, Procalcitonin 0.23 H, Cortisol PM Sample 11.80 H 05/04/24 20:57: PT 17.6 H, INR 1.4, APTT 30.8, Lactic Acid 4.3 H* 05/04/24 21:00: Magnesium 1.8 05/04/24 21:15: Urine Color Yellow, Urine Clarity Clear, Urine pH 6.0, Ur Specific [place] 1.015, Urine Protein 15 H, Urine Glucose (UA) Normal, Urine Ketones Negative, Urine Occult Blood 10 H, Urine Nitrite Positive H, Urine Bilirubin Negative, Urine Urobilinogen Normal, Ur Leukocyte Esterase Negative, Urine RBC 0 SEEN, Urine WBC 0-5 SEEN, Ur Squamous Epith Cells 0 SEEN, Urine Bacteria 0 SEEN, Urine Mucus 0 SEEN 05/05/24 00:07: POC Glucose 155 H 05/05/24 05:25: POC Glucose 143 H 05/05/24 06:16: WBC 8.2, RBC 3.56 L, Hgb 10.7 L, Hct 34.0 L, MCV 95.5, MCH 30.1, MCHC 31.5 L, RDW Std Deviation 57.6 H, RDW Coeff of Alfredo 16.3 H, Plt Count 269, MPV 10.5, Immature Gran % (Auto) 0.400, Neut % (Auto) 85.7 H, Lymph % (Auto) 10.6 L, [place] % (Auto) 3.0, Eos % (Auto) 0.1, Baso % (Auto) 0.2, Absolute Neuts (auto) 7.1, Absolute Lymphs (auto) 0.87, Nucleated RBC % 0, Sodium 138, Potassium 3.4, Chloride 103, Carbon Dioxide 20.9 L, Anion Gap 14, BUN 8, Creatinine 1.04, Estim Creat Clear Calc 83.29, Est GFR (MDRD) Non-Af 64, B UN/Creatinine Ratio 7.8 L, Glucose 151 H, Calcium 8.6, Total Bilirubin 0.18, AST 20, ALT 12, Alkaline Phosphatase 110 H, Total Protein 5.7 L, Albumin 3.1 L, Globulin 2.6, Albumin/Globulin Ratio 1.2 05/05/24 13:22: POC Glucose 120 H Charges/Coding Visit Charges Inpatient E&M: 50760 Subs Hosp L2
[2024-05-05 09:48] LABS: ALB/GLOB Ratio 1.2 RATIO (0.9-2.4); AST(SGOT) 20 U/L (<=31); Alanine Aminotransfer ALT/SGPT 12 U/L (<=34); Albumin, Serum 3.1 g/dL (3.5-5.0); Alkaline Phosphatase 110 U/L (35-104); Anion Gap 14 (5-15); BUN 8 mg/dL (4-19); BUN/Creat Ratio 7.8 RATIO (10-20); Calcium,Total 8.6 mg/dL (7.6-11.0); Carbon Dioxide 20.9 mmol/L (21.0-32.0); Chloride 103 mmol/L (98-108); Creatinine, Serum 1.04 mg/dL (0.70-1.20); EST Glomerular Filtration Rate 64 (>60); Estimated Creatinine Clearance 83.29 ml/min (50-250); Globulin 2.6 g/dL (2.2-4.2); Glucose 151 mg/dL (70-99); Potassium 3.4 mmol/L (3.3-5.1); Protein, Total 5.7 g/dL (5.9-8.4); Sodium Level 138 mmol/L (133-145); Total Bilirubin 0.18 mg/dL (0.00-1.30)
[2024-05-05] MEDS: Ezetimibe 10 MG Tablet PO (10:55)
[2024-05-05] MEDS: Fluticasone 0.05% 1 SPRAY NASAL.SRY 2 SPRAY NASAL ×2 (10:56→21:32)
[2024-05-05] MEDS: Menthol/Lanolin/Calamine/Znox 113 GM Tube 1 APPLIC TOPICAL ×2 (10:56→13:24)
[2024-05-05] MEDS: Enoxaparin 40 MG/0.4 ML Syringe SC ×2 (10:58→21:32)
[2024-05-05] MEDS: KCL 20MEQ in 0.45%NS 20 MEQ/1,000 ML IV.SOLN. 75 MEQ IV (11:06)
--- NOTE | 2024-05-05 11:21 | CASEMGMT ---
Assessment- SW completed assessment with patient. Patient was lying in bed. Patient's mom was sitting in chair beside bed. Patient was okay with SW talking in front of her mom. SW also confirmed addresses and phone numbers for patient and listed contacts. Living situation- Patient lives alone in a ground level apartment with no entry steps. Insurance- [facility] Medicare and [facility] Medicaid PCP: Nasreen Sutton Specialists: Basali- pain, [facility]-Pulmonology, and [facility] for cardiology Pharmacy: [facility] in [place] DME:? Bipap from [employer], walker, crutches, shower chair, and grab bars ADL's/IADL's: Per patient's mom patient is independent with all activities. However, in the past patient has indicated she gets assistance with some IADL's Transportation- Patient drives Past SNF/rehab: None Past HH: [facility] HH in the past LNOK- Mom Nadeen Johnson LW: None POA:? Patient said she has one and it is her mom. SW asked that a copy be brought in to [facility]. Patient goal- Patient wishes to return home. However, patient stated her PCP told her to come to the ER. Per patient's mom patient's PCP wants patient to go to [facility] for rehab. Plan: JACOB and RN CM will follow and see how patient does with therapy and possibly make a referral to [facility] pending therapy's recommendations Marta Duran MSW YOHAN
[2024-05-05 13:47] LABS: Bedside Glucose 120 mg/dL (74-106)
--- NOTE | 2024-05-05 14:18 | CASEMGMT ---
Therapy is recommending [facility] facility for patient. SW spoke with patient and asked if she was agreeable to SW sending a referral to [facility] as this is where she wanted to go when SW completed assessment. Patient agreed. Patient declined a list of SNF's for now unless [facility] cannot take her. SW will send a referral to [facility]. Marta Duran SOLID SURFACE FABRICATOR YOHAN
--- NOTE | 2024-05-05 14:25 | CASEMGMT ---
JACOB sent a referral to [facility] via [facility]. Marta Duran LAWN CARETAKER YOHAN
[2024-05-05] MEDS: Ceftriaxone 1 GM/50 ML BAG IV (16:48)
[2024-05-05 17:50] LABS: Bedside Glucose 94 mg/dL (74-106)
[2024-05-05] MEDS: traMADol 50 MG Tablet PO (19:10)
[2024-05-05] MEDS: Carboxymethylcellulose sodium gel dropperette 2 EACH EACH EYE (21:32)
[2024-05-05] MEDS: Atorvastatin Calcium 80 MG Tablet PO (21:32)
[2024-05-05] MEDS: Gabapentin 100 MG Capsule PO (21:32)
[2024-05-05 22:27] LABS: Bedside Glucose 102 mg/dL (74-106)
--- NOTE | 2024-05-05 23:55 | PN.HOSP_ITS ---
Hospitalist Note Patient with 05/04/2024 urine culture with preliminary greater than 100,000 gram- negative rods. Patient however has blood cultures from 2 different samples that are now being reported with gram-positive cocci in clusters. To be cautious we will place on IV vancomycin in addition but certainly may de-escalate these antibiotics as results return.
[2024-05-06] MEDS: Vancomycin HCl 2,000 MG in 0.9% Normal Saline (500mL Bag) 500 ML 250 MG IV ×2 (00:25→13:13)
[2024-05-06] MEDS: KCL 20MEQ in 0.45%NS 20 MEQ/1,000 ML IV.SOLN. 75 MEQ IV (00:26)
[2024-05-06] MEDS: traMADol 50 MG Tablet PO ×2 (00:33→16:56)
--- NOTE | 2024-05-06 00:52 | PCM.RX.CS ---
Consult Antibiotic Management Pharmacy has been consulted to manage selected antibiotic: Vancomycin Type of Intervention Type of Consult: New start Labs Labs: Sodium 138 mmol/L (133-145) 05/05/24 06:16 Potassium 3.4 mmol/L (3.3-5.1) 05/05/24 06:16 Chloride 103 mmol/L (98-108) 05/05/24 06:16 Carbon Dioxide 20.9 mmol/L (21.0-32.0) L 05/05/24 06:16 Anion Gap 14 (5-15) 05/05/24 06:16 BUN 8 mg/dL (4-19) 05/05/24 06:16 Creatinine 1.04 mg/dL (0.70-1.20) 05/05/24 06:16 Est GFR (MDRD) Non-Af 64 (>60) 05/05/24 06:16 BUN/Creatinine Ratio 7.8 RATIO (10-20) L 05/05/24 06:16 Glucose 151 mg/dL (70-99) H 05/05/24 06:16 Microbiology Microbiology: Microbiology 05/04/24 22:25 Blood Culture (Wb) - Breast Blood Culture - Preliminary 05/04/24 21:00 Blood Culture (Wb) - Chest Blood Culture - Preliminary 05/04/24 21:15 Urine, Catheterized Urine Culture - Preliminary Gram negative annika 05/05/24 01:00 Mucosa - Nasopharyngeal Respiratory Panel (PCR) - Final Dosing Weight Weight used for dosin.8 kg Estimated Creatinine Clearance Estimated Creatinine Clearance: 83.29 Goal Trough Goal Trough: 15-20 mcg/mL Pharmacy Plan for Drug Dosing Pharmacy Plan for Drug Dosing: Pharmacy Service will continue to monitor and adjust dosing as required. LOADING DOSE 2GM GIVEN 05/06 @ 0025. START 2GM Q12H AND DRAW TROUGH PRIOR TO 4TH DOSE Follow-Up Labs Follow-Up Labs: Trough: Vancomycin Date/Time Labs Ordered Labs to be done on [date and time ordered]: 05/07 @ 1200
[2024-05-06 03:30] VITALS: BP 114/77; PULSE 62; RESP 18; TEMP 36.1; O2SAT 93
[2024-05-06 05:43] VITALS: BMI 50.5
[2024-05-06] MEDS: Gabapentin 100 MG Capsule PO ×3 (06:18→20:48)
[2024-05-06] MEDS: Levothyroxine 100 MCG Tablet 200 MCG PO (06:18)
[2024-05-06] MEDS: Nystatin Powder 15gm Bottle 1 APPLIC TOPICAL ×3 (06:19→20:43)
[2024-05-06] MEDS: Acetaminophen 325 MG Tablet 650 MG PO ×2 (06:19→20:48)
[2024-05-06 06:49] LABS: Bedside Glucose 114 mg/dL (74-106)
[2024-05-06] MEDS: Budesonide Respules 0.5 MG/2 ML AMPUL.NEB. INHALATION (07:20)
[2024-05-06 07:21] VITALS: PULSE 67; RESP 18; O2SAT 96
[2024-05-06] MEDS: Pantoprazole Sodium 40 MG in 0.9% Normal Saline (100mL MB+) 100 ML 330 MG IV ×2 (08:43→20:48)
[2024-05-06] MEDS: Ezetimibe 10 MG Tablet PO (08:49)
[2024-05-06] MEDS: Menthol/Lanolin/Calamine/Znox 113 GM Tube 1 APPLIC TOPICAL ×3 (08:50→20:44)
[2024-05-06] MEDS: Enoxaparin 40 MG/0.4 ML Syringe SC ×2 (08:53→20:48)
[2024-05-06] MEDS: Citalopram 20 MG Tablet PO (08:53)
[2024-05-06 09:30] VITALS: BP 130/88; PULSE 50; RESP 16; TEMP 36.4; O2SAT 94
[2024-05-06] MEDS: Ceftriaxone 1 GM/50 ML BAG IV (10:28)
[2024-05-06 12:22] LABS: Bedside Glucose 118 mg/dL (74-106)
--- NOTE | 2024-05-06 14:39 | PCM.PN.HOSP ---
Reason for Visit Reason for Visit: Diagnoses Noninfective gastroenteritis and colitis, unspecified (05/04/24) Objective Data Objective Data Vital Signs: Vital Signs Temp Pulse Resp BP Pulse Ox O2 Del Method 97.6 F L 50 L 16 130/88 H 94 Room Air 05/06/24 09:30 05/06/24 09:30 05/06/24 09:30 05/06/24 09:30 05/06/24 09:30 05/06/24 09:30 Oxygen Delivery Method Room Air Weight: 294 lb 5.074 oz Body Mass Index (BMI) 50.5 Intake & Output: Intake and Output for Last 24 Hours 05/04/24 05/05/24 05/07/24 23:59 23:59 00:59 Intake Total 1100 / 1100 2031.67 / 2031.67 2059 / 0 Output Total 800 / 1000 825 / 825 Balance 1100 / 1100 1231.67 / 1031.67 1235 / 1235 Lab / Micro Data 05/05/24 06:16 05/05/24 06:16 Labs: Laboratory Results - last 24 hr 05/05/24 13:22: POC Glucose 120 H 05/05/24 17:23: POC Glucose 94 05/05/24 21:33: POC Glucose 102 05/06/24 06:16: POC Glucose 114 H 05/06/24 11:36: POC Glucose 118 H Micro: Microbiology 05/04/24 21:15 Urine, Catheterized Urine Culture - Preliminary GNR Poss Pseudomonas sp 05/04/24 22:25 Blood Culture (Wb) - Breast Bacteria Detection (PCR) - Final Staphylococcus epidermidis 05/04/24 22:25 Blood Culture (Wb) - Breast Blood Culture - Preliminary 05/04/24 21:00 Blood Culture (Wb) - Chest Blood Culture - Preliminary 05/05/24 01:00 Mucosa - Nasopharyngeal Respiratory Panel (PCR) - Final Physical Exam Narrative Seen and examined. Yesterday afternoon, patient got oriented x 3 and back to baseline. She has chronic right eye blindness and right upper eyelid gets everted. Delirium resolved History chronic migraine headache. Physical exam General: Awake, alert oriented x3, Cooperative. Morbid obesity BMI 48.7 kg/m? HEENT: Atraumatic, PERRLA, EOMI, Normocephalic Oral: No Gingival or Mucosal Lesions/ Ulcerations Neck: Supple, No JVD, Negative Carotid Bruits Chest wall/Lungs: Air entry diminished in bilateral lung bases. No crepitation/rhonchi Cardiovascular: Regular rate, Regular Rhythm, Normal S1, Normal S2, No M/G/R Abdomen: Bowel Sounds Present, Soft, Non Tender, Non-Distended : No dysuria. No renal angle tenderness. No suprapubic tenderness. Extremities: No edema, Capillary Refill Less than 3 Seconds Skin: No rashes, No breakdown Musculoskeletal: No Tenderness to Palpation of Joints or Extremities Neurological: Cranial nerves II-XII grossly intact, DTR 2+/4. No acute focal neurological deficit. Psych/Mental Status: Flat affect. Anxiety and depression Assessment & Plan Assessment/Plan (1) Gastroenteritis: PLAN: Plan The patient is a 53 y/o F was admitted with altered mental status, lethargy, not verbalization or getting up/ambulation, hypotension. As per family it happened 3 hours prior to arrival. She was hypotensive and bradycardic. Denied cough but having nausea and vomiting intermittently. No diarrhea. Was in ED 3 days ago. No chest/abdominal pain. She stopped prednisone about 2 weeks ago due to not feeling good. Denies history of Valley's disease. On review of medications, she had a short course of steroid on 04/10/2024. #1. Acute Encephalopathy secondary to N/V, secondary to suspected viral gastroenteritis with significant hypotension, bradycardia due to hypovolemia in addition to recent steroid treatment and history of anxiety and depression on antidepressant medications and cystitis: Patient is being admitted in PCU. On IV fluid for rehydration. Serum cortisol level normal. She does not have diarrhea. Prelim urine culture shows GNR more than 100,000 colonies per. 05/06: Acute encephalopathy resolved. Her delirium got resolved yesterday afternoon/evening time. 2. Acute cystitis due to GNR: Patient had UA positive of nitrite, WBC 0-5. Prelim urine culture growing more than 100,000 colonies of GNR. The patient had 1 dose of Zosyn in ED. was started on IV ceftriaxone 05/06: Urine culture shows possible Pseudomonas species. Blood culture shows Staph epidermidis with PCR therefore vancomycin discontinued. Previous urine culture shows she is resistant to fluoroquinolones therefore antibiotic changed to meropenem. She is also allergic to penicillin, not listed as specific. Ceftriaxone discontinued Hypokalemia: Admission K+ 2.7, magnesium level 1.8, supplementation given, repeat potassium is low normal 3.4 #3 Chronic normocytic anemia/iron deficiency anemia: Admission hemoglobin 10.7, MCV 96.3, baseline hemoglobin previously similar, continue to trend, continue iron supplementation. #4 Chronic Kidney Disease Stage IIIa Admission BUN/Cr 7/1.29, GFR 50, baseline renal function primarily 1.1-1.4, repeat creatinine normal 1.04. Bicarb 21. A 14 #5 COPD with allergic rhinitis: Bronchodilator as needed. 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 #8 Hypertension: Given presentation with low blood pressure likely from recent abrupt steroid stop will temporally hold hypertensive regimen and resume once clinically appropriate. #9 Anxiety and depression: Citalopram rate decreased, holding trazodone and hydroxyzine with restart once lethargy improved #10. Hypothyroidism: continue patient on levothyroxine regimen. #11 Chronic migraines: Patient on Emgality outpatient, if necessary may utilize triptan therapy however will hold currently. Encourage follow-up with neurology as previously arranged. #12 Hyperlipidemia: Continue home statin and Zetia regimen. #13 Morbid Obesity: Weight loss and lifestyle changes encouraged. #14 Restless leg syndrome: Per current list does not appear to be on regimen, clarifying to be certain. #15 DAVY: BiPAP nightly. #16 DVT prophylaxis: Lovenox. #17 CODE status: Patient GALLO is her and living will is currently in place. Discussed CODE status at length including difference between FULL code, DNR-CCA and DNR-CC status. Following discussions about the differences in these status, requested DNR-CCA, no intubation status. Confirmed with examples. Microbiology Past 72 Hours 05/04/24 21:15 Urine, Catheterized Urine Culture - Preliminary Gram negative annika 05/05/24 01:00 Mucosa - Nasopharyngeal Respiratory Panel (PCR) - Final Laboratory Results 05/04/24 20:32: WBC 12.2 H, RBC 3.54 L, Hgb 10.7 L, Hct 34.1 L, MCV 96.3, MCH 30.2, MCHC 31.4 L, RDW Std Deviation 58.2 H, RDW Coeff of Alfredo 16.4 H, Plt Count 334, MPV 10.6, Immature Gran % (Auto) 0.600, Neut % (Auto) 69.8, Lymph % (Auto) 19.4, [place] % (Auto) 7.8, Eos % (Auto) 1.8, Baso % (Auto) 0.6, Absolute Neuts (auto) 8.6 H, Absolute Lymphs (auto) 2.37, Nucleated RBC % 0, Sodium 139, Potassium 2.7 L*, Chloride 99, Carbon Dioxide 26.0, Anion Gap 14, BUN 7, Creatinine 1.29 H, Estim Creat Clear Calc 66.90, Est GFR (MDRD) Non-Af 50 L, BUN/Creatinine Ratio 5.6 L, Glucose 102 H, Calcium 9.0, Total Bilirubin 0.28, AST 25, ALT 14, Alkaline Phosphatase 112 H, Total Protein 5.6 L, Albumin 3.1 L, Globulin 2.5, Albumin/Globulin Ratio 1.2, Procalcitonin 0.23 H, Cortisol PM Sample 11.80 H 05/04/24 20:57: PT 17.6 H, INR 1.4, APTT 30.8, Lactic Acid 4.3 H* 05/04/24 21:00: Magnesium 1.8 05/04/24 21:15: Urine Color Yellow, Urine Clarity Clear, Urine pH 6.0, Ur Specific [place] 1.015, Urine Protein 15 H, Urine Glucose (UA) Normal, Urine Ketones Negative, Urine Occult Blood 10 H, Urine Nitrite Positive H, Urine Bilirubin Negative, Urine Urobilinogen Normal, Ur Leukocyte Esterase Negative, Urine RBC 0 SEEN, Urine WBC 0-5 SEEN, Ur Squamous Epith Cells 0 SEEN, Urine Bacteria 0 SEEN, Urine Mucus 0 SEEN 05/05/24 00:07: POC Glucose 155 H 05/05/24 05:25: POC Glucose 143 H 05/05/24 06:16: WBC 8.2, RBC 3.56 L, Hgb 10.7 L, Hct 34.0 L, MCV 95.5, MCH 30.1, MCHC 31.5 L, RDW Std Deviation 57.6 H, RDW Coeff of Alfredo 16.3 H, Plt Count 269, MPV 10.5, Immature Gran % (Auto) 0.400, Neut % (Auto) 85.7 H, Lymph % (Auto) 10.6 L, [place] % (Auto) 3.0, Eos % (Auto) 0.1, Baso % (Auto) 0.2, Absolute Neuts (auto) 7.1, Absolute Lymphs (auto) 0.87, Nucleated RBC % 0, Sodium 138, Potassium 3.4, Chloride 103, Carbon Dioxide 20.9 L, Anion Gap 14, BUN 8, Creatinine 1.04, Estim Creat Clear Calc 83.29, Est GFR (MDRD) Non-Af 64, BUN/Creatinine Ratio 7.8 L, Glucose 151 H, Calcium 8.6, Total Bilirubin 0.18, AST 20, ALT 12, Alkaline Phosphatase 110 H, Total Protein 5.7 L, Albumin 3.1 L, Globulin 2.6, Albumin/Globulin Ratio 1.2 05/05/24 13:22: POC Glucose 120 H Charges/Coding Visit Charges Inpatient E&M: 27629 Subs Hosp L2
[2024-05-06 15:22] VITALS: BP 137/86; PULSE 66; RESP 18; TEMP 36.6; O2SAT 96
[2024-05-06 17:48] LABS: Bedside Glucose 84 mg/dL (74-106)
--- NOTE | 2024-05-06 20:20 | EKG12_ITS ---
Test Reason : CP Blood Pressure : */* mmHG Vent. Rate : 73 BPM Atrial Rate : 73 BPM P-R Int : 152 ms QRS Dur : 86 ms QT Int : 442 ms P-R-T Axes : 48 10 11 degrees QTcB Int : 486 ms Sinus rhythm with Premature atrial complexes with Aberrant conduction Low voltage QRS Prolonged QT Abnormal ECG When compared with ECG of 04-May-2024 21:02, MANUAL COMPARISON REQUIRED DATA IS UNCONFIRMED Confirmed by Wes Medeiros ([id number]), newspaper editor ZANDER MAYER ([id number]) on 05/07/2024 1:03:09 PM Referred By: KEYLA Confirmed By: Wes Medeiros
[2024-05-06] MEDS: Carboxymethylcellulose sodium gel dropperette 2 EACH EACH EYE (20:45)
[2024-05-06] MEDS: Fluticasone 0.05% 1 SPRAY NASAL.SRY 2 SPRAY NASAL (20:45)
[2024-05-06] MEDS: Atorvastatin Calcium 80 MG Tablet PO (20:48)
[2024-05-06] MEDS: 0.9% Normal Saline (100mL Bag) 100 ML 15 ML IV (20:49)
[2024-05-06 20:50] VITALS: BP 142/94; PULSE 74; RESP 18; TEMP 37.3; O2SAT 94
[2024-05-06] MEDS: 0.9% Saline Lock 10 ML Syringe IV (22:09)
[2024-05-06] MEDS: Ketorolac 15 MG/ML Vial IV (22:09)
[2024-05-06] MEDS: Meropenem 1 GM in 0.9% Normal Saline (100mL MB+) 100 ML IV (22:09)
[2024-05-06 23:20] LABS: Bedside Glucose 116 mg/dL (74-106)
[2024-05-07] VITALS (8 sets, daily range): BP systolic 150–177; BP diastolic 80–111; PULSE 70–83; RESP 15–18; TEMP 36.4–36.9; O2SAT 95–99; BMI 51.0
[2024-05-07] MEDS: traMADol 50 MG Tablet PO ×3 (02:09→15:53)
[2024-05-07] MEDS: Acetaminophen 325 MG Tablet 650 MG PO ×4 (05:39→23:13)
[2024-05-07] MEDS: Gabapentin 100 MG Capsule PO ×3 (05:40→21:54)
[2024-05-07] MEDS: Levothyroxine 100 MCG Tablet 200 MCG PO (05:40)
[2024-05-07] MEDS: Meropenem 1 GM in 0.9% Normal Saline (100mL MB+) 100 ML IV ×3 (05:40→23:13)
[2024-05-07 06:02] LABS: Bedside Glucose 88 mg/dL (74-106)
[2024-05-07 06:54] LABS: Absolute Lymphocyte Count 2.07 X10^3/uL (0.83-4.51); Absolute Neutrophil Count 4.4 X10^3/uL (2.0-7.7); Basophil# 0.05 X10^3/uL; Basophil% 0.7 % (0-1); Eosinophil# 0.23 X10^3/uL; Eosinophils% 3.1 % (0-5); Hematocrit 33.9 % (37-47); Lymphocyte # 2.07 X10^3/ul (0.83-4.51); Lymphocyte % 28.1 % (19-41); Mean Corp Hgb Conc 32.4 g/dL (32-36); Mean Corpuscular Hgb 30.6 pg (27.0-32.0); Mean Corpuscular Volume 94.2 fL (81-99); Mean Platelet Vol. 10.7 fl (6.2-12.0); Monocyte# 0.59 X10^3/uL; NRBC Flagged by Analyzer 0 % (0-5); Neutrophil # 4.39 X10^3/uL (2.7-7.7); Neutrophil % 59.7 % (47-70); Platelet Count 302 K/mm3 (150-450); RBC Distribution Width CV 16.2 % (11.6-14.6); RBC Distribution Width SD 56.3 fl (35.1-43.9); White Blood Count 7.4 K/mm3 (4.4-11.0)
--- NOTE | 2024-05-07 08:27 | EKG12_ITS ---
Test Reason : CP Blood Pressure : */* mmHG Vent. Rate : 76 BPM Atrial Rate : 76 BPM P-R Int : 160 ms QRS Dur : 88 ms QT Int : 420 ms P-R-T Axes : 51 3 8 degrees QTcB Int : 472 ms Sinus rhythm with Premature atrial complexes with Aberrant conduction Low voltage QRS Nonspecific ST and T wave abnormality Abnormal ECG When compared with ECG of 06-May-2024 20:26, MANUAL COMPARISON REQUIRED DATA IS UNCONFIRMED Confirmed by Wes Medeiros ([id number]), editorial specialist ZANDER MAYER ([id number]) on 05/08/2024 5:51:41 AM Referred By: Confirmed By: Wes Medeiros
[2024-05-07] MEDS: Enoxaparin 40 MG/0.4 ML Syringe SC ×2 (08:41→21:57)
[2024-05-07] MEDS: Citalopram 20 MG Tablet PO (08:42)
[2024-05-07] MEDS: Fluticasone 0.05% 1 SPRAY NASAL.SRY 2 SPRAY NASAL ×2 (08:42→21:55)
[2024-05-07] MEDS: Ezetimibe 10 MG Tablet PO (08:42)
[2024-05-07] MEDS: Menthol/Lanolin/Calamine/Znox 113 GM Tube 1 APPLIC TOPICAL ×3 (08:49→21:56)
[2024-05-07] MEDS: Pantoprazole Sodium 40 MG in 0.9% Normal Saline (100mL MB+) 100 ML 330 MG IV ×2 (08:51→21:57)
[2024-05-07 09:26] LABS: Anion Gap 13 (5-15); BUN 7 mg/dL (4-19); BUN/Creat Ratio 8.1 RATIO (10-20); Calcium,Total 8.8 mg/dL (7.6-11.0); Carbon Dioxide 22.1 mmol/L (21.0-32.0); Chloride 108 mmol/L (98-108); EST Glomerular Filtration Rate 77 (>60); Estimated Creatinine Clearance 98.94 ml/min (50-250); Glucose 91 mg/dL (70-99); Potassium 3.3 mmol/L (3.3-5.1); Sodium Level 143 mmol/L (133-145)
--- NOTE | 2024-05-07 09:49 | PCM.PN.HOSP ---
Reason for Visit Reason for Visit: Diagnoses Noninfective gastroenteritis and colitis, unspecified (05/04/24) Subjective Subjective Patient sitting up in chair, reports some right eye pain, was able to get up and ambulate to the bathroom and back feels little bit weak and unwell overall Objective Data Objective Data Vital Signs: Vital Signs Temp Pulse Resp BP Pulse Ox O2 Del Method 97.6 F L 78 15 165/99 H 98 Room Air 05/07/24 09:01 05/07/24 09:01 05/07/24 09:01 05/07/24 09:01 05/07/24 09:01 05/07/24 09:01 Oxygen Delivery Method Room Air Weight: 134.7 kg Body Mass Index (BMI) 51.0 Intake & Output: Intake and Output for Last 24 Hours 05/05/24 05/07/24 05/07/24 23:59 00:59 23:59 Intake Total 2031.67 / 2031.67 4191 / 4191 1121.35 / 1121.35 Output Total 800 / 1000 1500 / 1500 Balance 1231.67 / 1031.67 2691 / 2691 1121.35 / 1121.35 Lab / Micro Data 05/07/24 05:59 05/07/24 05:59 Labs: Laboratory Results - last 24 hr 05/06/24 11:36: POC Glucose 118 H 05/06/24 16:35: POC Glucose 84 05/06/24 20:46: POC Glucose 116 H 05/07/24 05:37: POC Glucose 88 05/07/24 05:59: WBC 7.4, RBC 3.60 L, Hgb 11.0 L, Hct 33.9 L, MCV 94.2, MCH 30.6, MCHC 32.4, RDW Std Deviation 56.3 H, RDW Coeff of Alfredo 16.2 H, Plt Count 302, MPV 10.7, Immature Gran % (Auto) 0.400, Neut % (Auto) 59.7, Lymph % (Auto) 28.1, [place] % (Auto) 8.0, Eos % (Auto) 3.1, Baso % (Auto) 0.7, Absolute Neuts (auto) 4.4, Absolute Lymphs (auto) 2.07, Nucleated RBC % 0, Sodium 143, Potassium 3.3, Chloride 108, Carbon Dioxide 22.1, Anion Gap 13, BUN 7, Creatinine 0.90, Estim Creat Clear Calc 98.94, Est GFR (MDRD) Non-Af 77, BUN/Creatinine Ratio 8.1 L, Glucose 91, Calcium 8.8 Micro: Microbiology 05/04/24 21:00 Blood Culture (Wb) - Chest Blood Culture - Preliminary 05/04/24 22:25 Blood Culture (Wb) - Breast Bacteria Detection (PCR) - Final Staphylococcus epidermidis 05/04/24 22:25 Blood Culture (Wb) - Breast Blood Culture - Final Staphylococcus epidermidis 05/04/24 21:15 Urine, Catheterized Urine Culture - Preliminary GNR Poss Pseudomonas sp 05/05/24 01:00 Mucosa - Nasopharyngeal Respiratory Panel (PCR) - Final Physical Exam Narrative General: Alert, no apparent distress HEENT: Atraumatic, normocephalic Eyes: Keeps right eye closed Neck: Supple Respiratory: Clear to auscultation bilaterally, normal respiratory effort Cardiovascular: Regular rate GI: Soft, nontender, nondistended Extremities: No significant pitting edema Musculoskeletal: Moving all extremities Neuro: No overt focal neurological deficits Skin: No rashes appreciated Psych: Cooperative Assessment & Plan Assessment/Plan (1) Acute encephalopathy: PLAN: Plan # Acute metabolic encephalopathy-improving -Suspect secondary to underlying infection, most likely UTI but also has staph in blood cultures -Has significantly improved with antibiotics -ID following, # Pseudomonas UTI -Patient urine culture resulted as Pseudomonas, patient on Merrem #Gram positive bacteremia -Patient with 2 out of 2 blood cultures positive for gram-positive cocci in clusters -1 has resulted as staph epi, given 2 cultures were positive however cannot rule out this is a true infection -Resume vancomycin -Appreciate ID recommendations, continuing vancomycin at this time # Right eye irritation -Patient following outpatient due to right eye pain and irritation and has been on a myriad of eyedrops, do not see where she should still be taking any given fill dates will need to clarify -Patient does endorse in June she is scheduled to have her eyelid sewn shut permanently as 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 at time of admission -Complicates treatment, prognosis, outcomes -Recommend weight loss and lifestyle changes #DVT ppx: Lovenox subcu Leanne Rosas MD Charges/Coding Visit Charges Inpatient E&M: 90391 Subs Hosp L2
[2024-05-07] MEDS: Ondansetron 4 MG/2 ML Vial IV (11:20)
[2024-05-07 11:26] LABS: Bedside Glucose 104 mg/dL (74-106)
[2024-05-07] MEDS: Vancomycin HCl 2,000 MG in 0.9% Normal Saline (500mL Bag) 500 ML 250 MG IV (11:32)
--- NOTE | 2024-05-07 12:59 | PCM.CONS.GEN ---
Assessment & Plan Assessment/Plan (1) Acute encephalopathy: PLAN: Bcx x2 with staph-like, pcr shows MRSE. Recurrent PsA uti, ucx here with PsA-like. Cont vanc/chacorta for now. Will follow, thank you (2) Lactic acidosis: HPI Consult Data Date of Consult: 05/07/24 HPI Narrative Reason for Consultation: bacteremia HPI Narrative: COURTNEY CARMEN, is a 53 F with h/o COPD, stroke, DVT/PE, CKD, DM, presented with 10 days nausea, fatigue, emesis and then acute onset confusion. Now on vanc/chacorta. Has h/o recurrent PsA uti. This AM, complains of some headache, no cough, no abd pain, no diarrhea, no dysuria. Full ROS performed and neg except as noted above. [facility] Medical History Kidney failure MARYANA (acute kidney injury) Fatigue MARYANA (acute kidney injury) Walker as ambulation aid Ambulates with cane Low iron History of renal disease High cholesterol DVT (deep venous thrombosis) PONV (postoperative nausea and vomiting) Stroke/cerebrovascular accident Sleep apnea Fall Cardiology follow-up encounter Scalp hematoma Pulmonary embolism Post-menopausal Thyroid disease Injury of head and neck Dietary restriction Difficulty swallowing BiPAP (biphasic positive airway pressure) dependence COPD (chronic obstructive pulmonary disease) Shortness of breath on exertion Leg cramps History of pain when walking History of edema History of echocardiogram History of stress test Syncope Abnormal glucose Noncompliance DAVY treated with BiPAP UTI (urinary tract infection) Vitamin D deficiency Restless leg syndrome Vitamin B12 deficiency Iron deficiency anemia History of chronic back pain Wears glasses Arthritis Non-smoker Hydronephrosis Depression Anemia Migraine headache Chronic kidney disease Diabetes mellitus Gout Celiac disease Hyperlipidemia GERD (gastroesophageal reflux disease) Dyspnea on exertion Chest pain Hypersomnia Cardiac murmur Microcytic anemia Hypertension Morbid obesity with BMI of 40.0-44.9, adult Asthma Hypothyroidism Anxiety Home Medications ?Medication ?Instructions ?Recorded ?Last Taken ?Type citalopram 40 mg tablet 40 mg PO DAILY DEPRESSION/ANXIETY 07/27/19 04/05/24 History budesonide-formoterol HFA 160 2 puff inhalation BID COPD 04/02/20 04/05/24 History mcg-4.5 mcg/actuation aerosol inhaler (Symbicort) metoclopramide HCl 10 mg tablet 10 mg PO Q6H PRN NAUSEA AND 11/10/23 Unknown Rx (Reglan) VOMTING #20 tabs atorvastatin 80 mg tablet 80 mg PO DAILY CHOLESTEROL 02/10/23 04/04/24 History cyclobenzaprine 5 mg tablet 5 mg PO Q8H MUSCLE SPASMS 02/10/23 04/05/24 History galcanezumab-gnlm 120 mg/mL 120 mg subcut Q30D migraines 07/29/23 Unknown History subcutaneous syringe (Emgality) trazodone 50 mg tablet 50 - 100 mg PO QHS SLEEP 07/29/23 04/04/24 History gabapentin 300 mg capsule 300 mg PO TID pain 09/30/23 04/05/24 History naratriptan 2.5 mg tablet 2.5 mg PO BID PRN migraines 10/01/23 Unknown History ezetimibe 10 mg tablet (Zetia) 10 mg PO QDAY cholesterol #30 tabs 11/28/23 04/05/24 Rx fluticasone propionate 50 2 spray intranasal Q12H allergies 01/20/24 Unknown History mcg/actuation nasal spray,suspension levothyroxine 200 mcg tablet 200 mcg PO DAILY thyroid 01/20/24 04/05/24 History tramadol 50 mg tablet 50 mg PO TID pain 01/20/24 04/05/24 History isosorbide mononitrate 30 mg 30 mg PO DAILY HEART #30 tabs 03/30/24 04/05/24 Rx tablet,extended release 24 hr valsartan 160 mg tablet 160 mg PO BID blood pressure #180 03/30/24 04/05/24 Rx tabs ondansetron 4 mg disintegrating 4 mg PO Q8H PRN PRN Nausea #10 tabs 04/21/24 Unknown Rx tablet hydroxyzine HCl 25 mg tablet 25 mg PO TID PRN anxiety #20 tabs 04/22/24 Unknown Rx ondansetron 4 mg disintegrating 4 mg PO Q6H PRN PRN Nausea #15 tabs 05/01/24 Unknown Rx tablet Allergy/AdvReac Type Severity Reaction Status Date / Time hydrochlorothiazide AdvReac Intermediate Contributes Verified 05/01/24 10:37 to gout naproxen (From Naprosyn) AdvReac Intermediate Nausea Verified 05/01/24 10:37 aspirin AdvReac Nausea Verified 05/01/24 10:37 Penicillins AdvReac Other Verified 05/04/24 20:18 Family History Father , Age 72 Hypertension Mother CAD (coronary artery disease) Myocardial infarction, Onset Age: 55 Hypertension Sister CAD (coronary artery disease) Brother Cancer Surgical History History of cardiac catheterization History of History of carpal tunnel surgery of right wrist History of carpal tunnel surgery of left wrist Hx of cystoscopy History of left heart catheterization (11/11/20) history of uterine ablation Social History (Updated 05/04/24 @ 23:[address] Pamela Saleem MD) household members: spouse housing: apartment Smoking Status: Never smoker alcohol intake: never substance use type: does not use caffeine: No Physical Exam Const alert, oriented x3 and no apparent distress General Appearance: cooperative HEENT normocephalic and head/scalp atraumatic Eyes PERRL and EOMs intact bilaterally Neck supple and No nodes Resp normal air movement and clear to auscultation bilaterally Cardio regular rate and regular rhythm GI soft to palpation, non-tender and non-distended Extremity General Extremity: edema Skin no rashes or lesions noted Neuro CN's II-XII intact bilaterally Lab / Micro Data Attestation: I reviewed the patient's lab results. 05/07/24 05:59 05/07/24 05:59 Labs: Laboratory Results - last 24 hr 05/06/24 16:35: POC Glucose 84 05/06/24 20:46: POC Glucose 116 H 05/07/24 05:37: POC Glucose 88 05/07/24 05:59: WBC 7.4, RBC 3.60 L, Hgb 11.0 L, Hct 33.9 L, MCV 94.2, MCH 30.6, MCHC 32.4, RDW Std Deviation 56.3 H, RDW Coeff of Alfredo 16.2 H, Plt Count 302, MPV 10.7, Immature Gran % (Auto) 0.400, Neut % (Auto) 59.7, Lymph % (Auto) 28.1, [place] % (Auto) 8.0, Eos % (Auto) 3.1, Baso % (Auto) 0.7, Absolute Neuts (auto) 4.4, Absolute Lymphs (auto) 2.07, Nucleated RBC % 0, Sodium 143, Potassium 3.3, Chloride 108, Carbon Dioxide 22.1, Anion Gap 13, BUN 7, Creatinine 0.90, Estim Creat Clear Calc 98.94, Est GFR (MDRD) Non-Af 77, BUN/Creatinine Ratio 8.1 L, Glucose 91, Calcium 8.8 05/07/24 11:08: POC Glucose 104 Micro: Microbiology 05/04/24 21:00 Blood Culture (Wb) - Chest Blood Culture - Preliminary 05/04/24 22:25 Blood Culture (Wb) - Breast Bacteria Detection (PCR) - Final Staphylococcus epidermidis 05/04/24 22:25 Blood Culture (Wb) - Breast Blood Culture - Final Staphylococcus epidermidis 05/04/24 21:15 Urine, Catheterized Urine Culture - Preliminary GNR Poss Pseudomonas sp
--- NOTE | 2024-05-07 14:26 | CASEMGMT ---
[facility] is full and does not have any availability. JACOB spoke with therapy this am and patient well. Therapy feels patient would be fine for home with home health. SW met with patient and explained therapy's recommendation. Patient said she would like to go home with home health. SW let patient know SW can let RN CM know and we can get her a list of HH agencies. Marta Duran MANAGER OF PROGRAM [employer]
[2024-05-07] MEDS: Carboxymethylcellulose sodium gel dropperette 2 EACH EACH EYE (17:32)
[2024-05-07] MEDS: proCHLORPERazine 10 MG/2 ML Vial 5 MG IV (17:37)
[2024-05-07 18:38] LABS: Bedside Glucose 115 mg/dL (74-106)
[2024-05-07] MEDS: 0.9% Normal Saline (100mL Bag) 100 ML 15 ML IV (19:20)
[2024-05-07] MEDS: Atorvastatin Calcium 80 MG Tablet PO (21:56)
[2024-05-07] MEDS: Nystatin Powder 15gm Bottle 1 APPLIC TOPICAL (21:57)
[2024-05-07] MEDS: 0.9% Saline Lock 10 ML Syringe IV (22:04)
[2024-05-07] MEDS: hydrOXYzine 10 MG Tablet 25 MG PO (23:26)
--- NOTE | 2024-05-07 23:28 | PCM.RX.CS ---
Consult Antibiotic Management Pharmacy has been consulted to manage selected antibiotic: Vancomycin Type of Intervention Type of Consult: New start Labs Labs: Sodium 143 mmol/L (133-145) 05/07/24 05:59 Potassium 3.3 mmol/L (3.3-5.1) 05/07/24 05:59 Chloride 108 mmol/L (98-108) 05/07/24 05:59 Carbon Dioxide 22.1 mmol/L (21.0-32.0) 05/07/24 05:59 Anion Gap 13 (5-15) 05/07/24 05:59 BUN 7 mg/dL (4-19) 05/07/24 05:59 Creatinine 0.90 mg/dL (0.70-1.20) 05/07/24 05:59 Est GFR (MDRD) Non-Af 77 (>60) 05/07/24 05:59 BUN/Creatinine Ratio 8.1 RATIO (10-20) L 05/07/24 05:59 Glucose 91 mg/dL (70-99) 05/07/24 05:59 Microbiology Microbiology: Microbiology 05/04/24 21:15 Urine, Catheterized Urine Culture - Final Pseudomonas aeruginosa 05/04/24 21:00 Blood Culture (Wb) - Chest Blood Culture - Preliminary 05/04/24 22:25 Blood Culture (Wb) - Breast Bacteria Detection (PCR) - Final Staphylococcus epidermidis 05/04/24 22:25 Blood Culture (Wb) - Breast Blood Culture - Final Staphylococcus epidermidis 05/05/24 01:00 Mucosa - Nasopharyngeal Respiratory Panel (PCR) - Final Dosing Weight Weight used for dosin.7 kg Estimated Creatinine Clearance Estimated Creatinine Clearance: 98.94 Goal Trough Goal Trough: 15-20 mcg/mL Pharmacy Plan for Drug Dosing Pharmacy Plan for Drug Dosing: Pharmacy Service will continue to monitor and adjust dosing as required. LOADING DOSE 2GM GIVEN 05/07 @ 1132. START 1250MG Q8H AND DRAW TROUGH PRIOR TO 4TH DOSE Follow-Up Labs Follow-Up Labs: Trough: Vancomycin Date/Time Labs Ordered Labs to be done on [date and time ordered]: 05/08 @ 1500
[2024-05-07] MEDS: Vancomycin HCl 1,250 MG in 0.9% Normal Saline (250mL Bag) 250 ML 167 MG IV (23:36)
[2024-05-07 23:39] LABS: Bedside Glucose 96 mg/dL (74-106)
[2024-05-08] VITALS (8 sets, daily range): BP systolic 167–177; BP diastolic 67–104; PULSE 69–84; RESP 12–21; TEMP 36.3–36.9; O2SAT 93–100; BMI 51.1
--- NOTE | 2024-05-08 00:58 | CPS ---
Pt called for pulmicort aerosol tx before midnight, was unable to give tx d/t more respiratory orders,started Airvo on a new admit,madalyn ABG and a mS3 emergency, it was a pulmicort tx usually done 7A and 7P . RN aware.
[2024-05-08] MEDS: traMADol 50 MG Tablet PO ×4 (01:35→22:52)
[2024-05-08] MEDS: Carboxymethylcellulose sodium gel dropperette 2 EACH EACH EYE ×3 (03:22→17:16)
[2024-05-08] MEDS: Acetaminophen 325 MG Tablet 650 MG PO ×2 (03:24→20:39)
[2024-05-08 04:45] LABS: Absolute Lymphocyte Count 2.16 X10^3/uL (0.83-4.51); Absolute Neutrophil Count 4.6 X10^3/uL (2.0-7.7); Basophil# 0.05 X10^3/uL; Basophil% 0.6 % (0-1); Eosinophils% 3.9 % (0-5); Hematocrit 35.9 % (37-47); Hemoglobin 11.5 g/dL (12.0-15.0); Lymphocyte # 2.16 X10^3/ul (0.83-4.51); Lymphocyte % 27.8 % (19-41); Mean Corpuscular Hgb 29.9 pg (27.0-32.0); Mean Corpuscular Volume 93.5 fL (81-99); Mean Platelet Vol. 11.3 fl (6.2-12.0); Monocyte# 0.64 X10^3/uL; Monocyte% 8.2 % (0-10); NRBC Flagged by Analyzer 0 % (0-5); Neutrophil % 59.1 % (47-70); POSITIVE COUNT YES; Platelet Count 212 K/mm3 (150-450); RBC Distribution Width CV 16.3 % (11.6-14.6); RBC Distribution Width SD 55.4 fl (35.1-43.9); Red Blood Count 3.84 M/mm3 (4.2-5.4); White Blood Count 7.8 K/mm3 (4.4-11.0)
[2024-05-08] MEDS: Gabapentin 100 MG Capsule PO ×3 (05:17→20:39)
[2024-05-08] MEDS: Meropenem 1 GM in 0.9% Normal Saline (100mL MB+) 100 ML IV ×3 (05:18→22:48)
[2024-05-08] MEDS: Levothyroxine 100 MCG Tablet 200 MCG PO (05:20)
[2024-05-08 05:39] LABS: Anion Gap 14 (5-15); BUN 7 mg/dL (4-19); BUN/Creat Ratio 7.6 RATIO (10-20); Calcium,Total 9.1 mg/dL (7.6-11.0); Carbon Dioxide 20.2 mmol/L (21.0-32.0); Chloride 104 mmol/L (98-108); Creatinine, Serum 0.89 mg/dL (0.70-1.20); EST Glomerular Filtration Rate 77 (>60); Estimated Creatinine Clearance 100.05 ml/min (50-250); Glucose 114 mg/dL (70-99); Potassium 3.2 mmol/L (3.3-5.1); Sodium Level 139 mmol/L (133-145)
[2024-05-08] MEDS: Ondansetron 4 MG/2 ML Vial IV (06:45)
[2024-05-08] MEDS: 0.9% Saline Lock 10 ML Syringe IV ×3 (06:45→14:58)
[2024-05-08] MEDS: Vancomycin HCl 1,250 MG in 0.9% Normal Saline (250mL Bag) 250 ML 167 MG IV (06:48)
[2024-05-08 07:12] LABS: Bedside Glucose 91 mg/dL (74-106)
[2024-05-08] MEDS: Budesonide Respules 0.5 MG/2 ML AMPUL.NEB. INHALATION ×2 (07:15→19:10)
[2024-05-08] MEDS: Pantoprazole Sodium 40 MG in 0.9% Normal Saline (100mL MB+) 100 ML 330 MG IV ×2 (08:33→20:43)
[2024-05-08] MEDS: Enoxaparin 40 MG/0.4 ML Syringe SC ×2 (08:40→20:45)
[2024-05-08] MEDS: Ezetimibe 10 MG Tablet PO (08:41)
[2024-05-08] MEDS: Citalopram 20 MG Tablet PO (08:41)
[2024-05-08] MEDS: hydrOXYzine 10 MG Tablet 25 MG PO ×2 (08:42→17:16)
[2024-05-08] MEDS: Fluticasone 0.05% 1 SPRAY NASAL.SRY 2 SPRAY NASAL ×2 (08:42→20:40)
[2024-05-08] MEDS: Menthol/Lanolin/Calamine/Znox 113 GM Tube 1 APPLIC TOPICAL (08:42)
--- NOTE | 2024-05-08 09:24 | PN.HOSP_ITS ---
Reason for Visit Reason for Visit: Diagnoses Acidosis, unspecified (05/04/24) Encephalopathy, unspecified (05/04/24) Noninfective gastroenteritis and colitis, unspecified (05/04/24) Subjective Subjective Patient resting in bed, reports a headache over 1 to 2 months that is constant and has been refractory to other treatments, also little bit short of breath this morning but is revealed she is post be on BiPAP, she is agreeable to using this here Objective Data Objective Data Vital Signs: Vital Signs Temp Pulse Resp BP Pulse Ox O2 Del Method 97.8 F 69 17 171/67 H 93 Room Air 05/08/24 08:31 05/08/24 08:31 05/08/24 08:31 05/08/24 08:31 05/08/24 08:31 05/08/24 08:31 Oxygen Delivery Method Room Air Weight: 135.2 kg Body Mass Index (BMI) 51.1 Intake & Output: Intake and Output for Last 24 Hours 05/07/24 05/07/24 05/08/24 00:59 23:59 23:59 Intake Total 4191 / 4191 2623.70 / 2623.70 1057.4 / 1057.4 Output Total 1500 / 1500 Balance 2691 / 2691 2623.70 / 2623.70 1057.4 / 1057.4 Lab / Micro Data 05/08/24 04:27 05/08/24 04:27 Labs: Laboratory Results - last 24 hr 05/07/24 05:59: Sodium 143, Potassium 3.3, Chloride 108, Carbon Dioxide 22.1, Anion Gap 13, BUN 7, Creatinine 0.90, Estim Creat Clear Calc 98.94, Est GFR (MDRD) Non-Af 77, BUN/Creatinine Ratio 8.1 L, Glucose 91, Calcium 8.8 05/07/24 11:08: POC Glucose 104 05/07/24 17:25: POC Glucose 115 H 05/07/24 21:54: POC Glucose 96 05/08/24 04:27: WBC 7.8, RBC 3.84 L, Hgb 11.5 L, Hct 35.9 L, MCV 93.5, MCH 29.9, MCHC 32.0, RDW Std Deviation 55.4 H, RDW Coeff of Alfredo 16.3 H, Plt Count 212, MPV 11.3, Immature Gran % (Auto) 0.400, Neut % (Auto) 59.1, Lymph % (Auto) 27.8, [place] % (Auto) 8.2, Eos % (Auto) 3.9, Baso % (Auto) 0.6, Absolute Neuts (auto) 4.6, Absolute Lymphs (auto) 2.16, Nucleated RBC % 0, Sodium 139, Potassium 3.2 L , Chloride 104, Carbon Dioxide 20.2 L, Anion Gap 14, BUN 7, Creatinine 0.89, Estim Creat Clear Calc 100.05, Est GFR (MDRD) Non-Af 77, BUN/Creatinine Ratio 7.6 L, Glucose 114 H, Calcium 9.1 05/08/24 06:44: POC Glucose 91 Micro: Microbiology 05/04/24 21:15 Urine, Catheterized Urine Culture - Final Pseudomonas aeruginosa 05/04/24 21:00 Blood Culture (Wb) - Chest Blood Culture - Preliminary 05/04/24 22:25 Blood Culture (Wb) - Breast Bacteria Detection (PCR) - Final Staphylococcus epidermidis 05/04/24 22:25 Blood Culture (Wb) - Breast Blood Culture - Final Staphylococcus epidermidis 05/05/24 01:00 Mucosa - Nasopharyngeal Respiratory Panel (PCR) - Final Physical Exam Narrative General: Alert, no apparent distress HEENT: Atraumatic, normocephalic Eyes: Keeps right eye closed Neck: Supple Respiratory: Diminished bilaterally but somewhat due to habitus, normal respiratory effort Cardiovascular: Regular rate GI: Soft, nontender, nondistended Extremities: No significant pitting edema Musculoskeletal: Moving all extremities Neuro: No overt focal neurological deficits Skin: No rashes appreciated Psych: Cooperative Assessment & Plan Assessment/Plan (1) Acute encephalopathy: PLAN: Plan # Acute metabolic encephalopathy-improving -Suspect secondary to underlying infection, most likely UTI but also has staph in blood cultures -Has significantly improved with antibiotics -ID following -05/08: Mental status significantly improved, continue to treat underlying infections # Pseudomonas UTI -Patient urine culture resulted as Pseudomonas, patient on Merrem -05/08: Patient maintained on Merrem at this time #Gram positive bacteremia?suspect staph epi bacteremia -Patient with 2 out of 2 blood cultures positive for gram-positive cocci in clusters -1 has resulted as staph epi, given 2 cultures were positive however cannot rule out this is a true infection -Resume vancomycin -Appreciate ID recommendations, continuing vancomycin at this time -05/08: Continue vancomycin, given 2 out of 2 cultures positive repeat blood cultures ordered, limited echo to assess valves, ID following # Right eye irritation -Patient following outpatient due to right eye pain and irritation and has been on a myriad of eyedrops, do not see where she should still be taking any given fill dates will need to clarify -Patient does endorse in June she is scheduled to have her eyelid sewn shut permanently as 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 Will need to follow-up on outpatient basis for further management Chronic medical problems: #Type 2 diabetes mellitus -Glucose checks and sliding scale insulin #Depression/anxiety -Continue home Celexa #Hypothyroidism -Continue Synthroid #DAVY -Continue home NIPPV if applicable #Morbid obesity -BMI documented as 51 kg/m? at time of admission -Complicates treatment, prognosis, outcomes -Recommend weight loss and lifestyle changes #DVT ppx: Lovenox subcu Leanne Rosas MD Charges/Coding Visit Charges Inpatient E&M: 32451 Subs Hosp L2
--- NOTE | 2024-05-08 09:24 | ECHOLC_ITS ---
Reason For Study Reason For Study: Bacteremia-eval valves Procedure This was a limited 2D transthoracic echocardiogram. The study was technically difficult. Contrast injection was performed. Exam performed portable in patient room. Left Ventricle Normal LV size. The estimated ejection fraction is 60 %. No evidence for diastolic dysfunction. No regional wall motion abnormalities noted. Right Ventricle Normal RV size. Normal systolic function. Atria The left and right atria are normal. No doppler evidence for ASD. Mitral Valve There is no mitral valve stenosis. No mitral valve insufficiency. Tricuspid Valve There is no tricuspid stenosis. Unable to estimate RV systolic pressure due to inadequate jet, pulmonary artery pressure probably normal. Aortic Valve Trisinus/trileaflet aortic valve. Aortic sclerosis, no stenosis. There is no aortic stenosis. No aortic valve insufficiency. Pulmonic Valve There is no pulmonic valvular stenosis. No pulmonic valve insufficiency. Great Vessels Normal sized aortic root. Pericardium/Pleural No pericardial effusion. Medication Diluted definity 2ml given slow IV push to enhance endocardial definition. MMode/2D Measurements & Calculations LVIDd: 4.5 cm IVSd: 0.88 cm Ao root diam: 3.7 cm LVIDs: 3.0 cm LVPWd: 1.0 cm FS: 32.6 % LVAd ap4: 32.4 cm2 SV(MOD-sp4): 62.0 ml SV(sp4-el): 63.5 ml LVLd ap4: 7.9 cm SI(MOD-sp4): 26.7 ml/m2 EDV(MOD-sp4): 110.2 ml EDV(sp4-el): 112.7 ml LVAs ap4: 19.9 cm2 LVLs ap4: 6.8 cm ESV(MOD-sp4): 48.1 ml ESV(sp4-el): 49.2 ml EF(MOD-sp4): 56.3 % EF(sp4-el): 56.3 % ECHO/Echo Limited w/Contrast Interpretation Summary The estimated ejection fraction is 60 %. No evidence for diastolic dysfunction. Ordering Physician: Leanne Rosas Performed By: Florin Whittington RCS
[2024-05-08] MEDS: Potassium Chloride Oral Tablet 20 MEQ 40 MEQ PO (10:22)
[2024-05-08 10:49] LABS: Bedside Glucose 98 mg/dL (74-106)
--- NOTE | 2024-05-08 10:53 | PCM.PN.ID ---
Physical Exam Narrative Ongoing migraine headache. No fever, no abd pain. Const alert and no apparent distress Resp normal air movement and clear to auscultation bilaterally Cardio regular rate and regular rhythm GI soft to palpation, non-tender and non-distended Extremity General Extremity: edema Skin no rashes or lesions noted ID ID: Route of nutrition/ use of supplements: [] Nutritional Intake: [] IV Site: [] Cueto Catheter: [] Assessment & Plan Assessment/Plan (1) Acute encephalopathy: PLAN: Bcx x2 with MRSE. Recurrent PsA uti, ucx here with PsA. Cont vanc/chacorta for now. May benefit from methenamine and vit C at discharge for uti prophylaxis. Will follow (2) Lactic acidosis:
[2024-05-08 17:50] LABS: Bedside Glucose 93 mg/dL (74-106)
--- NOTE | 2024-05-08 18:37 | EKG12_ITS ---
Test Reason : vtach Blood Pressure : */* mmHG Vent. Rate : 65 BPM Atrial Rate : 65 BPM P-R Int : 156 ms QRS Dur : 92 ms QT Int : 410 ms P-R-T Axes : 79 54 -65 degrees QTcB Int : 426 ms Sinus rhythm with Premature ventricular complexes or Fusion complexes Low voltage QRS Nonspecific T wave abnormality Abnormal ECG baseline artifact When compared with ECG of 05-Aug-2024 14:08, MANUAL COMPARISON REQUIRED DATA IS UNCONFIRMED Confirmed by Wes Medeiros ([id number]), brands editor SONJA ZABALA ([id number]) on 08/06/2024 9:11:40 AM Referred By: Yamila Confirmed By: Wes Medeiros
[2024-05-08 19:24] LABS: Vancomycin, Trough Level 27.7 ug/mL (5.0-15.0)
[2024-05-08] MEDS: Atorvastatin Calcium 80 MG Tablet PO (20:41)
--- NOTE | 2024-05-08 20:55 | PCM.RX.CS ---
Consult Antibiotic Management Pharmacy has been consulted to manage selected antibiotic: Vancomycin Type of Intervention Type of Consult: Follow-up Labs Labs: Sodium 139 mmol/L (133-145) 05/08/24 04:27 Potassium 3.2 mmol/L (3.3-5.1) L 05/08/24 04:27 Chloride 104 mmol/L (98-108) 05/08/24 04:27 Carbon Dioxide 20.2 mmol/L (21.0-32.0) L 05/08/24 04:27 Anion Gap 14 (5-15) 05/08/24 04:27 BUN 7 mg/dL (4-19) 05/08/24 04:27 Creatinine 0.89 mg/dL (0.70-1.20) 05/08/24 04:27 Est GFR (MDRD) Non-Af 77 (>60) 05/08/24 04:27 BUN/Creatinine Ratio 7.6 RATIO (10-20) L 05/08/24 04:27 Glucose 114 mg/dL (70-99) H 05/08/24 04:27 Vancomycin Trough 27.7 ug/mL (5.0-15.0) H 05/08/24 15:11 Microbiology Microbiology: Microbiology 05/04/24 21:00 Blood Culture (Wb) - Chest Blood Culture - Preliminary 05/04/24 21:15 Urine, Catheterized Urine Culture - Final Pseudomonas aeruginosa 05/04/24 22:25 Blood Culture (Wb) - Breast Bacteria Detection (PCR) - Final Staphylococcus epidermidis 05/04/24 22:25 Blood Culture (Wb) - Breast Blood Culture - Final Staphylococcus epidermidis 05/05/24 01:00 Mucosa - Nasopharyngeal Respiratory Panel (PCR) - Final Goal Trough Goal Trough: 15-20 mcg/mL Pharmacy Plan for Drug Dosing Pharmacy Plan for Drug Dosing: VANCOMYCIN LEVEL RECEIVED Current Vancomycin Dose: 1250mg q8h Number of Doses Received: x2 of 1250mg dose Vancomycin Level: 27.7 Hours Since Last Dose: 8.5 hours Renal Function: SrCr 0.89 Renal Function Trend: SrCr improving Lab/Micro: Vancomycin Plan/Comments: resulted trough of 27.7 is above the ordered goal trough range of 15-20. recommend holding future doses of vancomycin and checking a random level 05/09/24 at 0600 Pending Level: 05/09/24 at 0600 (random level) Pharmacy Service will continue to monitor and adjust dosing as required. Follow-Up Labs Follow-Up Labs: Trough: Vancomycin (05/09/24 AT 0600 (RANDOM LEVEL))
[2024-05-08 21:08] LABS: Troponin T High Sensitivity 24 ng/L (<=14)
[2024-05-08 22:53] LABS: Troponin T High Sens 2 HR 24 ng/L (<=14)
[2024-05-09] VITALS (10 sets, daily range): BP systolic 135–194; BP diastolic 78–110; PULSE 63–98; RESP 12–20; TEMP 36.4–36.7; O2SAT 94–98; BMI 51.2
[2024-05-09 01:07] LABS: Bedside Glucose 90 mg/dL (74-106)
[2024-05-09 01:08] LABS: Troponin T High Sens 4 HR 24 ng/L (<=14)
[2024-05-09] MEDS: Acetaminophen 325 MG Tablet 650 MG PO ×3 (01:24→21:37)
[2024-05-09] MEDS: 0.9% Saline Lock 10 ML Syringe IV ×3 (04:30→14:46)
[2024-05-09] MEDS: Ondansetron 4 MG/2 ML Vial IV ×2 (04:30→14:45)
[2024-05-09] MEDS: hydrALAZINE 20 MG/ML Vial 10 MG IV (05:28)
[2024-05-09] MEDS: Gabapentin 100 MG Capsule PO ×3 (05:30→21:37)
[2024-05-09] MEDS: Levothyroxine 100 MCG Tablet 200 MCG PO (05:30)
[2024-05-09] MEDS: Meropenem 1 GM in 0.9% Normal Saline (100mL MB+) 100 ML IV ×3 (05:35→21:37)
[2024-05-09 06:33] LABS: Absolute Lymphocyte Count 2.15 X10^3/uL (0.83-4.51); Absolute Neutrophil Count 6.9 X10^3/uL (2.0-7.7); Basophil# 0.06 X10^3/uL; Basophil% 0.6 % (0-1); Hemoglobin 11.5 g/dL (12.0-15.0); Lymphocyte # 2.15 X10^3/ul (0.83-4.51); Lymphocyte % 21.3 % (19-41); Mean Corp Hgb Conc 32.9 g/dL (32-36); Mean Corpuscular Hgb 29.9 pg (27.0-32.0); Mean Corpuscular Volume 91.1 fL (81-99); Mean Platelet Vol. 10.4 fl (6.2-12.0); Monocyte# 0.65 X10^3/uL; Monocyte% 6.4 % (0-10); NRBC Flagged by Analyzer 0 % (0-5); Neutrophil # 6.89 X10^3/uL (2.7-7.7); Neutrophil % 68.3 % (47-70); Platelet Count 359 K/mm3 (150-450); RBC Distribution Width SD 53.3 fl (35.1-43.9); Red Blood Count 3.84 M/mm3 (4.2-5.4); White Blood Count 10.1 K/mm3 (4.4-11.0)
[2024-05-09 06:55] LABS: Vancomycin, Random Level 14.1 ug/mL (0.0-15.0)
[2024-05-09 06:56] LABS: Bedside Glucose 128 mg/dL (74-106)
[2024-05-09 06:58] LABS: Anion Gap 13 (5-15); BUN 5 mg/dL (4-19); Calcium,Total 9.1 mg/dL (7.6-11.0); Carbon Dioxide 23.6 mmol/L (21.0-32.0); Chloride 102 mmol/L (98-108); Creatinine, Serum 0.82 mg/dL (0.70-1.20); EST Glomerular Filtration Rate 85 (>60); Glucose 143 mg/dL (70-99); Potassium 3.3 mmol/L (3.3-5.1); Sodium Level 139 mmol/L (133-145)
[2024-05-09] MEDS: Budesonide Respules 0.5 MG/2 ML AMPUL.NEB. INHALATION ×2 (07:30→19:23)
[2024-05-09] MEDS: proCHLORPERazine 10 MG/2 ML Vial 5 MG IV ×2 (08:04→13:11)
[2024-05-09] MEDS: Pantoprazole Sodium 40 MG in 0.9% Normal Saline (100mL MB+) 100 ML 330 MG IV ×2 (08:06→21:38)
[2024-05-09] MEDS: Vancomycin HCl 1,500 MG in 0.9% Normal Saline (500mL Bag) 500 ML 250 MG IV (09:02)
[2024-05-09] MEDS: Citalopram 20 MG Tablet PO (09:08)
[2024-05-09] MEDS: Ezetimibe 10 MG Tablet PO (09:08)
[2024-05-09] MEDS: Fluticasone 0.05% 1 SPRAY NASAL.SRY 2 SPRAY NASAL ×2 (09:08→21:37)
[2024-05-09] MEDS: Enoxaparin 40 MG/0.4 ML Syringe SC ×2 (09:08→21:38)
--- NOTE | 2024-05-09 09:08 | PCM.PN.HOSP ---
Reason for Visit Reason for Visit: Diagnoses Acidosis, unspecified (05/04/24) Encephalopathy, unspecified (05/04/24) Noninfective gastroenteritis and colitis, unspecified (05/04/24) Subjective Subjective Patient had 2 episodes of loose stool earlier and reports she has some generalized abdominal upset, was a little short of breath in the morning again but is using her BiPAP Objective Data Objective Data Vital Signs: Vital Signs Temp Pulse Resp BP Pulse Ox O2 Del Method FiO2 97.9 F 85 12 172/85 H 96 Room Air 21 05/09/24 08:40 05/09/24 08:40 05/09/24 08:40 05/09/24 08:40 05/09/24 08:40 05/09/24 08:40 05/09/24 01:45 Oxygen Delivery Method Room Air Weight: 135.5 kg Body Mass Index (BMI) 51.2 Intake & Output: Intake and Output for Last 24 Hours 05/07/24 05/08/24 05/09/24 23:59 23:59 23:59 Intake Total 2623.70 / 2623.70 1957.90 / 1957.90 230 / 230 Balance 2623.70 / 2623.70 195.90 / 7.90 230 / 230 Lab / Micro Data 05/09/24 06:20 05/09/24 06:20 Labs: Laboratory Results - last 24 hr 05/08/24 10:19: POC Glucose 98 05/08/24 15:11: Vancomycin Trough 27.7 H 05/08/24 17:31: POC Glucose 93 05/08/24 20:25: Troponin T High Sens 24 H 05/08/24 20:31: POC Glucose 90 05/08/24 22:14: Troponin T Hi Sens 2 Hr 24 H 05/09/24 00:37: Troponin T Hi Sens 4Hr 24 H 05/09/24 06:20: WBC 10.1, RBC 3.84 L, Hgb 11.5 L, Hct 35.0 L, MCV 91.1, MCH 29.9, MCHC 32.9, RDW Std Deviation 53.3 H, RDW Coeff of Alfredo 16.0 H, Plt Count 359, MPV 10.4, Immature Gran % (Auto) 0.400, Neut % (Auto) 68.3, Lymph % (Auto) 21.3, [place] % (Auto) 6.4, Eos % (Auto) 3.0, Baso % (Auto) 0.6, Absolute Neuts (auto) 6.9, Absolute Lymphs (auto) 2.15, Nucleated RBC % 0, Sodium 139, Potassium 3.3, Chloride 102, Carbon Dioxide 23.6, Anion Gap 13, BUN 5, Creatinine 0.82, Estim Creat Clear Calc 109.00, Est GFR (MDRD) Non-Af 85, BUN/Creatinine Ratio 6.0 L, Glucose 143 H, Calcium 9.1, Random Vancomycin 14.1 05/09/24 06:39: POC Glucose 128 H Micro: Microbiology 05/04/24 21:00 Blood Culture (Wb) - Chest Blood Culture - Preliminary 05/04/24 21:15 Urine, Catheterized Urine Culture - Final Pseudomonas aeruginosa 05/04/24 22:25 Blood Culture (Wb) - Breast Bacteria Detection (PCR) - Final Staphylococcus epidermidis 05/04/24 22:25 Blood Culture (Wb) - Breast Blood Culture - Final Staphylococcus epidermidis 05/05/24 01:00 Mucosa - Nasopharyngeal Respiratory Panel (PCR) - Final Radiography Diagnostic Testing: Radiology Impression Echocardiogram 05/08/24 09:24 Interpretation Summary The estimated ejection fraction is 60 %. No evidence for diastolic dysfunction. Ordering Physician: Leanne Rosas Performed By: Florin Whittington RCS Physical Exam Narrative General: Alert, no apparent distress HEENT: Atraumatic, normocephalic Eyes: Keeps right eye closed Neck: Supple Respiratory: Diminished bilaterally but somewhat due to habitus, normal respiratory effort Cardiovascular: Regular rate GI: Soft, nontender, nondistended Extremities: No significant pitting edema Musculoskeletal: Moving all extremities Neuro: No overt focal neurological deficits Skin: No rashes appreciated Psych: Cooperative Assessment & Plan Assessment/Plan (1) Acute encephalopathy: PLAN: Plan # Pseudomonas UTI -Patient urine culture resulted as Pseudomonas, patient on Merrem -05/08: Patient maintained on Merrem at this time -05/09: On meropenem, may benefit from methenamine and vitamin C at discharge for UTI prophylaxis, noted, ID following #Gram positive bacteremia?suspect staph epi bacteremia -Patient with 2 out of 2 blood cultures positive for gram-positive cocci in clusters -1 has resulted as staph epi, given 2 cultures were positive however cannot rule out this is a true infection -Resume vancomycin -Appreciate ID recommendations, continuing vancomycin at this time -05/08: Continue vancomycin, given 2 out of 2 cultures positive repeat blood cultures ordered, limited echo to assess valves, ID following -05/09: Echo with no acute abnormalities, repeat blood cultures pending, if these are negative can likely DC later this week with ID recommendations to SNF #Diarrhea and abdominal upset -05/09: If patient has any further diarrhea will be sent with enteric panel and for C. 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 She had been on multiple eyedrops for her eye but is unclear when the stop date was, 2 weeks ago she had been on moxifloxacin 0.5% 1 drop in the right eye 4 times a day, erythromycin ointment 0.5% 1 application to right eye 4 times a day and 100 mg of doxycycline twice daily. None of these were on her med list and based on external fill it seems that there stop date would have been prior to now but again this is unclear, reportedly Optho office will call tomorrow to verify which she should be on #Chronic headache -05/08: Patient following with neurology in [place] on outpatient basis, has been refractory to most management, continue supportive care, will increase tramadol to every 6 hours. Will need to follow-up on outpatient basis for further management -05/09: This is not new, continue supportive care, again I think outpatient follow-up is appropriate especially given the significant chronic nature #Hypertension -05/09: Patient has remained significantly hypertensive. Resume home Imdur and home ARB # COPD -05/09: Resume home inhaler or formulary equivalent, appears to only be on inhaled budesonide without any beta agonist Chronic medical problems: # Acute metabolic encephalopathy-improving -Suspect secondary to underlying infection, most likely UTI but also has staph in blood cultures -Has significantly improved with antibiotics -ID following -05/08: Mental status significantly improved, continue to treat underlying infections -05/09: Overall resolved #Type 2 diabetes mellitus -Glucose checks and sliding scale insulin #Depression/anxiety -Continue home Celexa #Hypothyroidism -Continue Synthroid #DAVY -Continue home NIPPV if applicable #Morbid obesity -BMI documented as 51 kg/m? at time of admission -Complicates treatment, prognosis, outcomes -Recommend weight loss and lifestyle changes #DVT ppx: Lovenox subcu Leanne Rosas MD Charges/Coding Visit Charges Inpatient E&M: 73162 Subs Hosp L2
--- NOTE | 2024-05-09 09:53 | PCM.RX.CS ---
Consult Antibiotic Management Pharmacy has been consulted to manage selected antibiotic: Vancomycin Type of Intervention Type of Consult: Follow-up Prior Doses of Antibiotics Prior Doses of Antibiotics Received/Current Regimen: dose being held currently due to a high trough yesterday Labs Labs: Sodium 139 mmol/L (133-145) 05/09/24 06:20 Potassium 3.3 mmol/L (3.3-5.1) 05/09/24 06:20 Chloride 102 mmol/L (98-108) 05/09/24 06:20 Carbon Dioxide 23.6 mmol/L (21.0-32.0) 05/09/24 06:20 Anion Gap 13 (5-15) 05/09/24 06:20 BUN 5 mg/dL (4-19) 05/09/24 06:20 Creatinine 0.82 mg/dL (0.70-1.20) 05/09/24 06:20 Est GFR (MDRD) Non-Af 85 (>60) 05/09/24 06:20 BUN/Creatinine Ratio 6.0 RATIO (10-20) L 05/09/24 06:20 Glucose 143 mg/dL (70-99) H 05/09/24 06:20 Vancomycin Trough 27.7 ug/mL (5.0-15.0) H 05/08/24 15:11 Random Vancomycin 14.1 ug/mL (0.0-15.0) 05/09/24 06:20 Microbiology Microbiology: Microbiology 05/04/24 21:00 Blood Culture (Wb) - Chest Blood Culture - Preliminary 05/04/24 21:15 Urine, Catheterized Urine Culture - Final Pseudomonas aeruginosa 05/04/24 22:25 Blood Culture (Wb) - Breast Bacteria Detection (PCR) - Final Staphylococcus epidermidis 05/04/24 22:25 Blood Culture (Wb) - Breast Blood Culture - Final Staphylococcus epidermidis 05/05/24 01:00 Mucosa - Nasopharyngeal Respiratory Panel (PCR) - Final Dosing Weight Weight used for dosin.5 kg Estimated Creatinine Clearance Estimated Creatinine Clearance: >100ml/min Goal Trough Goal Trough: 15-20 mcg/mL Pharmacy Plan for Drug Dosing Pharmacy Plan for Drug Dosing: The vanc random level drawn at 06:20 (approx 24 hours after the last dose of 1250mg) was 14.1. This is back below 20 so will resume at a new dose of 1500mg IV q24h. Check a trough before the 3rd dose. Pharmacy Service will continue to monitor and adjust dosing as required. Follow-Up Labs Follow-Up Labs: Trough: Vancomycin Date/Time Labs Ordered Labs to be done on [date and time ordered]: 05/11/24 07:30
[2024-05-09] MEDS: hydrOXYzine PAM 25 MG Capsule PO ×2 (10:46→17:38)
[2024-05-09] MEDS: traMADol 50 MG Tablet PO ×2 (10:47→18:38)
[2024-05-09] MEDS: Losartan Potassium 50 MG Tablet PO (10:50)
[2024-05-09] MEDS: Isosorbide Mononitrate 30 MG Tablet PO (10:50)
[2024-05-09 11:51] LABS: Bedside Glucose 107 mg/dL (74-106)
[2024-05-09 12:10] LABS: Magnesium 1.8 mg/dL (1.5-2.2)
--- NOTE | 2024-05-09 12:23 | CASEMGMT ---
Addendum entered by Sebas Griffiths 05/10/24 12:25: INEZ SHORE spoke w/Kaya @ Dr Michael's office for stop dates on eye. Per Kaya, Dr Michael would like pt to be on all 3 prior stated medications for [address] Rosas made aware. Kaya also states pt sees corneal specialist Dr John Penaloza, [facility], and Dr Michael thinks pt has a f/u appt w/Dr Penaloza but they are not sure when it is. Call placed to Dr Penaloza's office. Pt has an appt 06/06 @ 1:45 PM. This was added to pt's discharge plan. Addendum entered by Sebas Griffiths 05/09/24 13:15: Dr Rosas made aware of Dr Michael concerns re: pt's severe eye pain and unable to administer own eye drops. Per Dr Rosas, pt is only receiving artificial tears @ [facility] [place]. She states if pt is to be receiving additional eye drops she is not aware of that. INEZ SHORE placed call to Dr Michael's office and spoke w/installation and repair technician Kaya. She states they last saw pt 04/27 and pt to be on Moxifloxacin 0.5 % 1 drop, rt eye, 4 x's/day, Erythromycin oint 0.5 % (5 mg/Gm) 1 application to rt eye 4 x's/day, and PO doxycyline 100 mg, 1 tab po BID. Message sent to Dr Rosas via Backline at this time. Original Note: INEZ SHORE NOTE: Call received from Dr Barrett Michael, stating he is pt's jawbone puller @ [facility] and has been seeing pt for 6 wks. He states pt has an ulcer to her right eye that has been causing her severe pain and is not improving. He states pt has voiced being suicidal d/t such severe pain to her eye. He states she is not able to take care of herself @ baseline and is not able to administer her own eye gtts and pt's pt's mother lives @ [facility] and has memory issues, and is unable to assist pt w/the eye drops either. He states they are desperate to find assistance for pt and they have been trying to get her set up w/Assisted Living. He states they met w/a team @ [facility] and they are willing to accept pt. Dr Michael also reports transportation is a huge barrier as well. Marta JAMES, made aware of the above information. Arminda KEYSN RN CM
--- NOTE | 2024-05-09 12:37 | CASEMGMT ---
[facility] has notified SW that they will have a bed available at the end of the week. SW spoke with patient and let her know this information. Patient was agreeable to going to [facility] at d/c. SW answered patient's questions. SW also told patient she will need to work with therapy today. Plan: d/c to [facility] pending insurance approval. Marta Duran [employer]ER YOHAN
[2024-05-09] MEDS: Potassium Chloride Oral Tablet 20 MEQ 40 MEQ PO (13:11)
--- NOTE | 2024-05-09 13:14 | PCM.PN.ID ---
Physical Exam Narrative Feeling a little better, some upset stomach, no fever Const alert and no apparent distress General Appearance: cooperative Resp normal air movement and clear to auscultation bilaterally Cardio regular rate and regular rhythm GI soft to palpation, non-tender and non-distended Skin no rashes or lesions noted ID ID: Route of nutrition/ use of supplements: [] Nutritional Intake: [] IV Site: [] Cueto Catheter: [] Assessment & Plan Assessment/Plan (1) Acute encephalopathy: PLAN: Bcx x2 with MRSE in one, CoNS in the other (it is possible these are two separate contaminants). Recurrent PsA uti, ucx here with PsA. Cont vanc/chacorta for now. May benefit from methenamine and vit C at discharge for uti prophylaxis. Likely finish abx by end of the week. Will follow (2) Lactic acidosis:
[2024-05-09 16:25] LABS: Bedside Glucose 97 mg/dL (74-106)
[2024-05-09] MEDS: Albuterol 2.5 MG/3 ML VIAL.NEB. INHALATION (19:22)
[2024-05-09 20:34] LABS: Bedside Glucose 102 mg/dL (74-106)
[2024-05-09] MEDS: Atorvastatin Calcium 80 MG Tablet PO (21:39)
[2024-05-09 23:15] LABS: Bedside Glucose 116 mg/dL (74-106)
[2024-05-10] VITALS (9 sets, daily range): BP systolic 133–180; BP diastolic 78–97; PULSE 66–90; RESP 12–22; TEMP 36.1–36.6; O2SAT 92–99; BMI 49.7
[2024-05-10] MEDS: hydrOXYzine PAM 25 MG Capsule PO ×3 (00:01→18:08)
[2024-05-10] MEDS: Ondansetron 4 MG/2 ML Vial IV ×3 (00:01→18:09)
[2024-05-10] MEDS: Meropenem 1 GM in 0.9% Normal Saline (100mL MB+) 100 ML IV ×3 (05:28→21:22)
[2024-05-10] MEDS: Gabapentin 100 MG Capsule PO ×3 (05:30→20:41)
[2024-05-10] MEDS: Levothyroxine 100 MCG Tablet 200 MCG PO (05:30)
[2024-05-10 05:55] LABS: Absolute Lymphocyte Count 2.24 X10^3/uL (0.83-4.51); Absolute Neutrophil Count 6.4 X10^3/uL (2.0-7.7); Basophil# 0.04 X10^3/uL; Basophil% 0.4 % (0-1); Eosinophil# 0.18 X10^3/uL; Eosinophils% 1.8 % (0-5); Hematocrit 32.7 % (37-47); Hemoglobin 10.4 g/dL (12.0-15.0); Lymphocyte # 2.24 X10^3/ul (0.83-4.51); Lymphocyte % 22.9 % (19-41); Mean Corp Hgb Conc 31.8 g/dL (32-36); Mean Corpuscular Hgb 29.3 pg (27.0-32.0); Mean Corpuscular Volume 92.1 fL (81-99); Mean Platelet Vol. 10.9 fl (6.2-12.0); Monocyte# 0.87 X10^3/uL; Monocyte% 8.9 % (0-10); NRBC Flagged by Analyzer 0 % (0-5); Neutrophil # 6.41 X10^3/uL (2.7-7.7); Neutrophil % 65.6 % (47-70); Platelet Count 336 K/mm3 (150-450); RBC Distribution Width CV 16.2 % (11.6-14.6); RBC Distribution Width SD 54.6 fl (35.1-43.9); Red Blood Count 3.55 M/mm3 (4.2-5.4); White Blood Count 9.8 K/mm3 (4.4-11.0)
[2024-05-10] MEDS: traMADol 50 MG Tablet PO ×3 (06:22→20:26)
[2024-05-10 06:36] LABS: Bedside Glucose 92 mg/dL (74-106)
[2024-05-10 06:39] LABS: Anion Gap 13 (5-15); BUN 6 mg/dL (4-19); BUN/Creat Ratio 6.7 RATIO (10-20); Calcium,Total 9.1 mg/dL (7.6-11.0); Carbon Dioxide 24.3 mmol/L (21.0-32.0); Chloride 104 mmol/L (98-108); Creatinine, Serum 0.84 mg/dL (0.70-1.20); EST Glomerular Filtration Rate 83 (>60); Estimated Creatinine Clearance 104.44 ml/min (50-250); Glucose 85 mg/dL (70-99); Potassium 3.6 mmol/L (3.3-5.1); Sodium Level 142 mmol/L (133-145)
[2024-05-10] MEDS: Albuterol 2.5 MG/3 ML VIAL.NEB. INHALATION ×3 (07:23→20:06)
[2024-05-10] MEDS: Budesonide Respules 0.5 MG/2 ML AMPUL.NEB. INHALATION ×2 (07:23→20:06)
[2024-05-10] MEDS: Acetaminophen 325 MG Tablet 650 MG PO ×3 (08:19→18:08)
[2024-05-10] MEDS: Vancomycin HCl 1,500 MG in 0.9% Normal Saline (500mL Bag) 500 ML 250 MG IV (08:21)
[2024-05-10] MEDS: Menthol/Lanolin/Calamine/Znox 113 GM Tube 1 APPLIC TOPICAL ×4 (08:21→20:32)
[2024-05-10] MEDS: Fluticasone 0.05% 1 SPRAY NASAL.SRY 2 SPRAY NASAL ×2 (08:21→20:25)
[2024-05-10] MEDS: Enoxaparin 40 MG/0.4 ML Syringe SC ×2 (08:21→20:25)
[2024-05-10] MEDS: Pantoprazole Sodium 40 MG in 0.9% Normal Saline (100mL MB+) 100 ML 330 MG IV ×2 (08:22→20:41)
[2024-05-10] MEDS: Isosorbide Mononitrate 30 MG Tablet PO (08:23)
[2024-05-10] MEDS: Ezetimibe 10 MG Tablet PO (08:23)
[2024-05-10] MEDS: Citalopram 20 MG Tablet PO (08:23)
[2024-05-10] MEDS: Losartan Potassium 50 MG Tablet PO (08:23)
--- NOTE | 2024-05-10 08:33 | PN.HOSP_ITS ---
Reason for Visit Reason for Visit: Diagnoses Acidosis, unspecified (05/04/24) Encephalopathy, unspecified (05/04/24) Noninfective gastroenteritis and colitis, unspecified (05/04/24) Subjective Subjective Patient feeling better today, no further diarrhea, has a little bit of chronic nausea, abdomen feeling somewhat better Objective Data Objective Data Vital Signs: Vital Signs Temp Pulse Resp BP Pulse Ox O2 Del Method FiO2 97.4 F L 70 18 180/97 H 93 Room Air 21 05/10/24 08:13 05/10/24 08:13 05/10/24 08:13 05/10/24 08:13 05/10/24 08:13 05/10/24 08:13 05/10/24 03:30 Oxygen Delivery Method Room Air Weight: 131.5 kg Body Mass Index (BMI) 49.7 Intake & Output: Intake and Output for Last 24 Hours 05/08/24 05/09/24 05/10/24 23:59 23:59 23:59 Intake Total 1956.1956. 1350 / 1350 120 / 120 Balance 1956. 1350 / 1350 120 / 120 Lab / Micro Data 05/10/24 04:42 05/10/24 04:42 Labs: Laboratory Results - last 24 hr 05/09/24 06:20: Magnesium 1.8 05/09/24 11:26: POC Glucose 107 H 05/09/24 16:04: POC Glucose 97 05/09/24 20:13: POC Glucose 102 05/09/24 21:41: POC Glucose 116 H 05/10/24 04:42: WBC 9.8, RBC 3.55 L, Hgb 10.4 L, Hct 32.7 L, MCV 92.1, MCH 29.3, MCHC 31.8 L, RDW Std Deviation 54.6 H, RDW Coeff of Alfredo 16.2 H, Plt Count 336, MPV 10.9, Immature Gran % (Auto) 0.400, Neut % (Auto) 65.6, Lymph % (Auto) 22.9, [place] % (Auto) 8.9, Eos % (Auto) 1.8, Baso % (Auto) 0.4, Absolute Neuts (auto) 6.4, Absolute Lymphs (auto) 2.24, Nucleated RBC % 0, Sodium 142, Potassium 3.6, Chloride 104, Carbon Dioxide 24.3, Anion Gap 13, BUN 6, Creatinine 0.84, Estim Creat Clear Calc 104.44, Est GFR (MDRD) Non-Af 83, BUN/Creatinine Ratio 6.7 L, Glucose 85, Calcium 9.1, TSH 42.500 H, Free T4 1.10 05/10/24 06:17: POC Glucose 92 Micro: Microbiology 05/04/24 21:00 Blood Culture (Wb) - Chest Blood Culture - Final Coag Negative Staph 05/04/24 21:15 Urine, Catheterized Urine Culture - Final Pseudomonas aeruginosa 05/04/24 22:25 Blood Culture (Wb) - Breast Bacteria Detection (PCR) - Final Staphylococcus epidermidis 05/04/24 22:25 Blood Culture (Wb) - Breast Blood Culture - Final Staphylococcus epidermidis 05/05/24 01:00 Mucosa - Nasopharyngeal Respiratory Panel (PCR) - Final Physical Exam Narrative General: Sitting up, awake and alert HEENT: Atraumatic, normocephalic Eyes: Keeps right eye closed Neck: Supple Respiratory: Diminished bilaterally but somewhat due to habitus, normal respiratory effort Cardiovascular: Regular rate GI: Soft, nontender, nondistended Extremities: No significant pitting edema Musculoskeletal: Moving all extremities Neuro: No overt focal neurological deficits Skin: No rashes appreciated Psych: Cooperative Assessment & Plan Assessment/Plan (1) Acute encephalopathy: PLAN: Plan # Pseudomonas UTI -Patient urine culture resulted as Pseudomonas, patient on Merrem -05/08: Patient maintained on Merrem at this time -05/09: On meropenem, may benefit from methenamine and vitamin C at discharge for UTI prophylaxis, noted, ID following -05/10: Will plan on methenamine and vitamin C at discharge given patient's recurrent Pseudomonas UTIs, on Merrem, ID managing antibiotics # Positive blood cultures for gram-positive cocci in clusters -Patient with 2 out of 2 blood cultures positive for gram-positive cocci in clusters -1 has resulted as staph epi, given 2 cultures were positive however cannot rule out this is a true infection -Resume vancomycin -Appreciate ID recommendations, continuing vancomycin at this time -05/08: Continue vancomycin, given 2 out of 2 cultures positive repeat blood cultures ordered, limited echo to assess valves, ID following -05/09: Echo with no acute abnormalities, repeat blood cultures pending, if these are negative can likely DC later this week with ID recommendations to SNF -05/10: No growth on repeat blood cultures, antibiotics per ID, possible that there were 2 separate contaminants #Diarrhea and abdominal upset -05/09: If patient has any further diarrhea will be sent with enteric panel and for C. 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 She had been on multiple eyedrops for her eye but is unclear when the stop date was, 2 weeks ago she had been on moxifloxacin 0.5% 1 drop in the right eye 4 times a day, erythromycin ointment 0.5% 1 application to right eye 4 times a day and 100 mg of doxycycline twice daily. None of these were on her med list and based on external fill it seems that there stop date would have been prior to now but again this is unclear, reportedly Optho office will call tomorrow to verify which she should be on -05/10: Will attempt to try to verify if pt should be on eye drops, continue prn artificial tears #Chronic headache -05/08: Patient following with neurology in [place] on outpatient basis, has been refractory to most management, continue supportive care, will increase tramadol to every 6 hours. Will need to follow-up on outpatient basis for further management -05/09: This is not new, continue supportive care, again I think outpatient follow-up is appropriate especially given the significant chronic nature -05/10: Patient continued on supportive care #Hypertension -05/09: Patient has remained significantly hypertensive. Resume home Imdur and home ARB -05/10: Remains hypertensive, added carvedilol to patient's regimen # COPD -05/09: Resume home inhaler or formulary equivalent, appears to only be on inhaled budesonide without any beta agonist -05/10: Saturating 93% on room air, continue nebs, continue BiPAP nightly #Hypothyroidism -Continue Synthroid -05/10: TSH elevated but lower than previous, suspect that compliance again is the reason for the abnormality, will need to encourage compliance and recheck TSH at a later time to assess efficacy Chronic medical problems: # Acute metabolic encephalopathy-improving -Suspect secondary to underlying infection, most likely UTI but also has staph in blood cultures -Has significantly improved with antibiotics -ID following -05/08: Mental status significantly improved, continue to treat underlying infections -05/09: Overall resolved #Type 2 diabetes mellitus -Glucose checks and sliding scale insulin #Depression/anxiety -Continue home Celexa #DAVY -Continue home NIPPV if applicable #Morbid obesity -BMI documented as 51 kg/m? at time of admission -Complicates treatment, prognosis, outcomes -Recommend weight loss and lifestyle changes #DVT ppx: Lovenox subcu Leanne Rosas MD Charges/Coding Visit Charges Inpatient E&M: 92883 Subs Hosp L2
[2024-05-10] MEDS: Carvedilol 6.25 MG Tablet PO ×2 (09:59→20:26)
[2024-05-10 11:11] LABS: Bedside Glucose 122 mg/dL (74-106)
[2024-05-10] MEDS: Nystatin Powder 15gm Bottle 1 APPLIC TOPICAL ×2 (13:22→20:32)
--- NOTE | 2024-05-10 13:52 | CASEMGMT ---
JACOB received communication from Melissa inquiring if patient will be on IV antibiotics at discharge. JACOB let Melissa know that JACOB is awaiting the infectious disease Dr.'s recommendation. Melissa indicated patient may not get approved for skilled. JACOB inquired if they could get patient approved under her Medicaid for intermediate level of care. They did not seem to understand what JACOB was asking. Marta Duran FREIGHT AGENT YOHAN
[2024-05-10 17:17] LABS: Bedside Glucose 131 mg/dL (74-106)
[2024-05-10] MEDS: Erythromycin Base 1 OPTH.TUBE 1 APPLIC OPHTHALMIC ×2 (18:34→20:26)
[2024-05-10] MEDS: Doxycycline 100 MG CAPSULE PO (20:26)
[2024-05-10] MEDS: Atorvastatin Calcium 80 MG Tablet PO (20:26)
[2024-05-10 21:27] LABS: Bedside Glucose 113 mg/dL (74-106)
[2024-05-11] VITALS (10 sets, daily range): BP systolic 132–176; BP diastolic 78–103; PULSE 69–85; RESP 12–20; TEMP 36.1–36.8; O2SAT 92–96; BMI 50.0
[2024-05-11] MEDS: Levothyroxine 100 MCG Tablet 200 MCG PO (06:11)
[2024-05-11] MEDS: Gabapentin 100 MG Capsule PO ×2 (06:11→15:01)
[2024-05-11] MEDS: Meropenem 1 GM in 0.9% Normal Saline (100mL MB+) 100 ML IV (06:11)
[2024-05-11] MEDS: Nystatin Powder 15gm Bottle 1 APPLIC TOPICAL (06:11)
[2024-05-11] MEDS: Ondansetron 4 MG/2 ML Vial IV (06:16)
[2024-05-11] MEDS: 0.9% Saline Lock 10 ML Syringe IV (06:16)
[2024-05-11 06:29] LABS: Bedside Glucose 97 mg/dL (74-106)
[2024-05-11] MEDS: Albuterol 2.5 MG/3 ML VIAL.NEB. INHALATION ×2 (06:56→13:24)
[2024-05-11] MEDS: Budesonide Respules 0.5 MG/2 ML AMPUL.NEB. INHALATION (06:56)
[2024-05-11 07:55] LABS: Absolute Lymphocyte Count 2.16 X10^3/uL (0.83-4.51); Absolute Neutrophil Count 5.6 X10^3/uL (2.0-7.7); Basophil# 0.06 X10^3/uL; Basophil% 0.7 % (0-1); Eosinophil# 0.33 X10^3/uL; Eosinophils% 3.7 % (0-5); Hematocrit 32.5 % (37-47); Hemoglobin 10.5 g/dL (12.0-15.0); Lymphocyte # 2.16 X10^3/ul (0.83-4.51); Mean Corp Hgb Conc 32.3 g/dL (32-36); Mean Corpuscular Hgb 30.1 pg (27.0-32.0); Mean Corpuscular Volume 93.1 fL (81-99); Mean Platelet Vol. 10.8 fl (6.2-12.0); Monocyte% 8.9 % (0-10); NRBC Flagged by Analyzer 0 % (0-5); Neutrophil # 5.61 X10^3/uL (2.7-7.7); Neutrophil % 62.3 % (47-70); Platelet Count 292 K/mm3 (150-450); RBC Distribution Width CV 16.3 % (11.6-14.6); RBC Distribution Width SD 55.6 fl (35.1-43.9); Red Blood Count 3.49 M/mm3 (4.2-5.4)
[2024-05-11 08:30] LABS: Anion Gap 12 (5-15); BUN 7 mg/dL (4-19); BUN/Creat Ratio 7.8 RATIO (10-20); Calcium,Total 8.8 mg/dL (7.6-11.0); Carbon Dioxide 21.9 mmol/L (21.0-32.0); Chloride 106 mmol/L (98-108); Creatinine, Serum 0.84 mg/dL (0.70-1.20); EST Glomerular Filtration Rate 83 (>60); Estimated Creatinine Clearance 104.74 ml/min (50-250); Glucose 89 mg/dL (70-99); Potassium 3.7 mmol/L (3.3-5.1); Sodium Level 140 mmol/L (133-145)
[2024-05-11] MEDS: Enoxaparin 40 MG/0.4 ML Syringe SC (08:58)
[2024-05-11] MEDS: Losartan Potassium 50 MG Tablet PO (09:03)
[2024-05-11] MEDS: Carvedilol 6.25 MG Tablet PO (09:03)
[2024-05-11] MEDS: Citalopram 20 MG Tablet PO (09:03)
[2024-05-11] MEDS: Isosorbide Mononitrate 30 MG Tablet PO (09:04)
[2024-05-11] MEDS: Doxycycline 100 MG CAPSULE PO (09:04)
[2024-05-11] MEDS: Ezetimibe 10 MG Tablet PO (09:04)
[2024-05-11] MEDS: Erythromycin Base 1 OPTH.TUBE 1 APPLIC OPHTHALMIC ×2 (09:04→15:01)
[2024-05-11] MEDS: Fluticasone 0.05% 1 SPRAY NASAL.SRY 2 SPRAY NASAL (09:05)
[2024-05-11] MEDS: traMADol 50 MG Tablet PO ×2 (09:14→16:00)
[2024-05-11] MEDS: proCHLORPERazine 10 MG/2 ML Vial 5 MG IV (09:14)
--- NOTE | 2024-05-11 09:20 | CASEMGMT ---
Pt will admit to [facility] with an intermediate loc. Per [facility], pt can admit when medically ready. Ena Kaur DC Planning Asst.
[2024-05-11 09:26] LABS: Vancomycin, Trough Level 13.7 ug/mL (5.0-15.0)
--- NOTE | 2024-05-11 09:56 | PCM.RX.CS ---
Consult Antibiotic Management Pharmacy has been consulted to manage selected antibiotic: Vancomycin Type of Intervention Type of Consult: Follow-up Labs Labs: Sodium 140 mmol/L (133-145) 05/11/24 07:18 Potassium 3.7 mmol/L (3.3-5.1) 05/11/24 07:18 Chloride 106 mmol/L (98-108) 05/11/24 07:18 Carbon Dioxide 21.9 mmol/L (21.0-32.0) 05/11/24 07:18 Anion Gap 12 (5-15) 05/11/24 07:18 BUN 7 mg/dL (4-19) 05/11/24 07:18 Creatinine 0.84 mg/dL (0.70-1.20) 05/11/24 07:18 Est GFR (MDRD) Non-Af 83 (>60) 05/11/24 07:18 BUN/Creatinine Ratio 7.8 RATIO (10-20) L 05/11/24 07:18 Glucose 89 mg/dL (70-99) 05/11/24 07:18 Vancomycin Trough 13.7 ug/mL (5.0-15.0) 05/11/24 07:18 Random Vancomycin 14.1 ug/mL (0.0-15.0) 05/09/24 06:20 Microbiology Microbiology: Microbiology 05/08/24 10:25 Blood Culture (Wb) - Right Hand Blood Culture - Preliminary No growth in 48 hours. 05/08/24 10:25 Blood Culture (Wb) - Left Hand Blood Culture - Preliminary No growth in 48 hours. 05/04/24 21:00 Blood Culture (Wb) - Chest Blood Culture - Final Coag Negative Staph 05/04/24 21:15 Urine, Catheterized Urine Culture - Final Pseudomonas aeruginosa 05/04/24 22:25 Blood Culture (Wb) - Breast Bacteria Detection (PCR) - Final Staphylococcus epidermidis 05/04/24 22:25 Blood Culture (Wb) - Breast Blood Culture - Final Staphylococcus epidermidis 05/05/24 01:00 Mucosa - Nasopharyngeal Respiratory Panel (PCR) - Final Goal Trough Goal Trough: 15-20 mcg/mL Pharmacy Plan for Drug Dosing Pharmacy Plan for Drug Dosing: VANCOMYCIN LEVEL RECEIVED Current Vancomycin Dose: 1500mg IV Q24h Number of Doses Received: 2 (of current regimen) Vancomycin Level: 13.7 Hours Since Last Dose: 23hr Renal Function: 0.84 Renal Function Trend: stable Lab/Micro: Bcx growing staph Vancomycin Plan/Comments: patient had a trough drawn which resulted in a value of 13.7 (goal 15-20). Patient's trough is slightly low at this time. Will increase dose to 2000mg IV Q24hr to start 05/11/24 @1000. This should give a predicted trough of 17.7 per [facility] vancomycin calculator. Pending Level: 05/13/24 @0930, prior to 3rd dose of new regimen. Pharmacy Service will continue to monitor and adjust dosing as required.
[2024-05-11 11:40] LABS: Bedside Glucose 98 mg/dL (74-106)
[2024-05-11] MEDS: Pantoprazole Sodium 40 MG in 0.9% Normal Saline (100mL MB+) 100 ML 330 MG IV (11:40)
[2024-05-11] MEDS: Vancomycin HCl 2,000 MG in 0.9% Normal Saline (500mL Bag) 500 ML 250 MG IV (12:42)
[2024-05-11] MEDS: Acetaminophen 325 MG Tablet 650 MG PO (12:43)
--- NOTE | 2024-05-11 13:18 | PCM.TXEXTCAR ---
Diet Diet Order/Speech Therapy: 05/05/24 17:11 Diet: Consistent Carb - Calorie Controlled Food consistency:: Regular Liquid Consistency:: Regular/Thin Dietary Modifications:: Cardiac / Heart Healthy Gluten Free How many daily calories?: 1800 calorie Routine Orders/Code Status Suppository Type: Dulcolax 10mg Suppository Frequency: Daily PRN Code Status: DNRCC-A DC O2, CPAP, BIPAP needs Home O2 Discharge instructions: Yes Type of respiratory needs?: BiPAP BiPAP oxygen liters per minute: 21 BiPAP instructions: 10/09 Problem/Diagnosis (1) Acute encephalopathy: Status: Acute Code(s): G93.40 - Encephalopathy, unspecified Plan #Pseudomonas UTI #Corneal Ulcer #DAVY on BiPAP #Morbid obesity #COPD #Chronic headaches #HTN #hypothyroidism #DMII #Depression/anxiety 53-year-old female history as above who presented [facility] ED with nausea, vomiting, and altered mental status for 3 hours. Patient was hypotensive and bradycardic, also had white blood cell count of 12.2 with left shift and potassium of 2.7 with creatinine 1.29, she was given a liter of normal saline, potassium, and hydrocortisone x 1 though this was not continued as patient is not chronically on steroids. Patient was admitted and found to have a Pseudomonas UTI and was placed on Merrem and ID consulted who followed. Also patient had 2 positive blood cultures for gram-positive cocci in clusters however these were 2 different staffs it was felt that both may be contaminant, repeat blood cultures negative and echo unremarkable. Of note patient's payment analyst office called regarding concerns for patient going home due to noncompliance and difficulty caring for self, discussed that patient is to be placed, also they reported she should be on her eyedrops and doxycycline for another month, these were not initially on her medication list with these medications were added to her home list and restarted. Ultimately patient improved, frequently would have multiple complaints but labs stable, vitally stable. Patient reports a little bit of GI upset after eating greasy sausage this a.m. and said it happened with greasy foods before but denies any active vomiting or other acute complaints, advised to avoid greasy foods. Discharged in stable condition with following discharge instructions: -Please follow-up with your payment analyst upon discharge. You have an appointment scheduled for at 1:45 PM, will be very important that you make this appointment -You will need to take 1 more month of oral doxycycline 100 twice daily as well as the erythromycin ointment and moxifloxacin drops for corneal ulcer in your right eye -It is recommended that you continue to follow with your physician managing your headaches on discharge for further treatment -You will be discharged on methenamine and vitamin C for assistance with UTI prophylaxis -Additionally you were started on Coreg for blood pressure -It will be VERY important to continue to wear BiPAP nightly -You have completed your course of antibiotics Allergies/Procedures Done in Hospital Allergies hydrochlorothiazide Adverse Reaction (Intermediate, Verified 05/01/24 10:37) Contributes to gout naproxen (From Naprosyn) Adverse Reaction (Intermediate, Verified 05/01/24 10:37) Nausea aspirin Adverse Reaction (Verified 05/01/24 10:37) Nausea Penicillins Adverse Reaction (Verified 05/04/24 20:18) Other Type of Care/Length of Stay Estimated LOS: More Than 30 Days Type of Care Needed: Intermediate Rehab Potential: Fair Prognosis: Fair Additional Orders/Day of Discharge Day of Discharge: 05/11/24 Dietary and Speech Recommendations Dietitian Recommendations/Changes: Will adjust diet to 1800 calorie/consistent carbohydrate; gluten-free; cardiac. Discharge Plan Admission Admit Date/Time: 05/04/24 22:43 Primary Reason for Your Visit: Confusion, nausea, vomiting Attending Provider: Leanne Rosas Primary Care Provider: Nasreen Sutton Consulting Providers: Pamela Saleem; Kiran Johnson; Frank Fontana Instructions Patient Instructions: ED Corneal Ulcer Additional Instructions / Restrictions: DISCHARGE INSTRUCTIONS PLEASE READ *Please take this with you to your next doctors appointment* -Please follow-up with your payment analyst upon discharge. You have an appointment scheduled for at 1:45 PM, will be very important that you make this appointment -You will need to take 1 more month of oral doxycycline 100 twice daily as well as the erythromycin ointment and moxifloxacin drops for corneal ulcer -It is recommended that you continue to follow with your physician managing your headaches on discharge for further treatment -You will be discharged on methenamine and vitamin C for assistance with UTI prophylaxis -Additionally you were started on Coreg for blood pressure -It will be VERY important to continue to wear BiPAP nightly -You have completed your course of antibiotics -Please call your primary care provider's office upon discharge to schedule a hospital follow up within 1 week. -For any concerning signs or symptoms please call 911 or proceed to the nearest emergency department Discharge Orders/Prescriptions Prescriptions: New carboxymethylcellulose sodium [Refresh Tears] 0.5 % Drops 2 drp RIGHT EYE Q1H PRN (Reason: DRY EYES) Qty: 0 0RF methenamine hippurate 1 gram tablet 1 g PO BID 30 Days Qty: 60 0RF ascorbic acid (vitamin C) [Vitamin C] 1,000 mg tablet 1 g PO DAILY Qty: 30 0RF citalopram 20 mg Tablet 20 mg PO DAILY Qty: 0 0RF insulin lispro [Humalog KwikPen Insulin] 100 unit/mL Insulin Pen See Protocol subcut ACHS Qty: 0 0RF Protocol: 2. Sliding Scale Insulin Low-Med Dosing Condition: 150-209 mg/dl = 1 unit Condition: 210-269 mg/dl = 2 units Condition: 270-329 mg/dl = 3 units Condition: 330-389 mg/dl = 4 units Condition: 390-449 mg/dl = 5 units Condition: Greater than 449 call physician Protocol Text: Suggested for: - Patients on Total Daily Insulin Dose of 28-36 units - Average body habitus patients LOW MEDIUM DOSING ALGORITHM carvedilol 6.25 mg Tablet 6.25 mg PO BID Qty: 0 0RF Continued budesonide-formoterol [Symbicort] 160-4.5 mcg/actuation HFA aerosol inhaler 2 puff INHALATION BID ezetimibe [Zetia] 10 mg tablet 10 mg PO QDAY Qty: 30 11RF atorvastatin 80 mg Tablet 80 mg PO DAILY hydroxyzine HCl 25 mg tablet 25 mg PO TID PRN (Reason: anxiety) Qty: 20 0RF Emgality Syringe 120 mg/mL syringe 120 mg subcut Q30D Patient Comments: END OF MONTH trazodone 50 mg tablet 50 - 100 mg PO QHS naratriptan 2.5 mg tablet 2.5 mg PO BID PRN (Reason: migraines) Rx Instructions: can repeat dose, two hours after first dose taken. do not exceed more than two doses in 24 hours. fluticasone propionate 50 mcg/actuation spray,suspension 2 spray INTRANASAL Q12H Patient Comments: [NO ORIGINAL SIG] levothyroxine 200 mcg tablet 200 mcg PO DAILY ondansetron 4 mg tablet,disintegrating 4 mg PO Q8H PRN PRN (Reason: Nausea) Qty: 10 0RF doxycycline hyclate 100 mg tablet 100 mg PO BID erythromycin 5 mg/gram (0.5 %) ointment 1 applic ophthalmic (eye) 4X/DAY moxifloxacin 0.5 % drops 1 drp RIGHT EYE 4X/DAY valsartan 160 mg tablet 160 mg PO BID Qty: 180 3RF isosorbide mononitrate 30 mg tablet extended release 24 hr 30 mg PO DAILY Qty: 30 11RF Changed tramadol 50 mg tablet 50 mg PO TID PRN (Reason: pain) 3 Days Qty: 9 0RF gabapentin 300 mg capsule 100 mg PO TID 3 Days Qty: 3 0RF Discontinued cyclobenzaprine 5 mg tablet 5 mg PO Q8H metoclopramide HCl [Reglan] 10 mg tablet 10 mg PO Q6H PRN (Reason: NAUSEA AND VOMTING ) Qty: 20 0RF ondansetron 4 mg tablet,disintegrating 4 mg PO Q6H PRN PRN (Reason: Nausea) Qty: 15 0RF citalopram 40 mg tablet 40 mg PO DAILY Referrals / Follow Up: John Penaloza [Other] - 06/06/24 1:45 pm (Dr Penaloza is a Corneal specialist. ) Nasreen Sutton MD [Primary Care Provider] - Disposition Disposition (needs filled in before D/C Order can be placed): NonSkilled NH/Intermed Care
--- NOTE | 2024-05-11 13:25 | DS.PCM_ITS ---
Providers Date of Admission: 05/04/24 Date of Discharge: 05/11/24 Primary Care Physician: Nasreen Sutton MD Consultations 05/06/24 14:45 Consult: Infectious Disease Routine Consulting Provider: Kiran Johnson Reason for Consult: Pseudomons UTI, previous UCx resistant to FQ, allergic toPCN EMERGENT Consult: No MD Notified: Yes Date Notified: 05/06/24 Time Notified: 14:48 Method of Notification: Text Reason For Visit: N/V Diagnosis Discharge Diagnosis (1) Acute encephalopathy: Status: Acute Code(s): G93.40 - Encephalopathy, unspecified Plan #Pseudomonas UTI #Corneal Ulcer #DAVY on BiPAP #Morbid obesity #COPD #Chronic headaches #HTN #hypothyroidism #DMII #Depression/anxiety Medications at Discharge Home Medications budesonide-formoterol HFA 160 mcg-4.5 mcg/actuation aerosol inhaler (Symbicort) 2 puff inhalation BID COPD 04/02/20 atorvastatin 80 mg tablet 80 mg PO DAILY CHOLESTEROL 02/10/23 galcanezumab-gnlm 120 mg/mL subcutaneous syringe (Emgality) 120 mg subcut Q30D migraines 07/29/23 trazodone 50 mg tablet 50 - 100 mg PO QHS SLEEP 07/29/23 naratriptan 2.5 mg tablet 2.5 mg PO BID PRN migraines 10/01/23 ezetimibe 10 mg tablet (Zetia) 10 mg PO QDAY cholesterol #30 tabs 11/28/23 fluticasone propionate 50 mcg/actuation nasal spray,suspension 2 spray intranasal Q12H allergies 01/20/24 levothyroxine 200 mcg tablet 200 mcg PO DAILY thyroid 01/20/24 isosorbide mononitrate 30 mg tablet,extended release 24 hr 30 mg PO DAILY HEART #30 tabs 03/30/24 valsartan 160 mg tablet 160 mg PO BID blood pressure #180 tabs 03/30/24 ondansetron 4 mg disintegrating tablet 4 mg PO Q8H PRN PRN Nausea #10 tabs 04/21/24 hydroxyzine HCl 25 mg tablet 25 mg PO TID PRN anxiety #20 tabs 04/22/24 doxycycline hyclate 100 mg tablet 100 mg PO BID Corneal ulcer 05/10/24 erythromycin 5 mg/gram (0.5 %) eye ointment 1 applic ophthalmic (eye) 4X/DAY Corneal ulcer 05/10/24 moxifloxacin 0.5 % eye drops 1 drp RIGHT EYE 4X/DAY corneal ulcer 05/10/24 ascorbic acid (vitamin C) 1,000 mg tablet (Vitamin C) 1 g PO DAILY #30 tabs 05/11/24 carboxymethylcellulose sodium 0.5 % eye drops (Refresh Tears) 2 drp RIGHT EYE Q1H PRN DRY EYES #0 mL 05/11/24 carvedilol 6.25 mg tablet 6.25 mg PO BID #0 tabs 05/11/24 citalopram 20 mg tablet 20 mg PO DAILY #0 tabs 05/11/24 gabapentin 300 mg capsule 100 mg (0.3333 x 300 mg) PO TID pain 3 days #3 caps 05/11/24 insulin lispro 100 unit/mL subcutaneous pen (Humalog KwikPen (U-100) Insulin) See Protocol subcut ACHS #0 mL 05/11/24 methenamine hippurate 1 gram tablet 1 g PO BID 30 days #60 tabs 05/11/24 tramadol 50 mg tablet 50 mg PO TID PRN pain 3 days #9 tabs 05/11/24 Hospital Course Procedures Transthoracic echo Summary of Care Provided Minutes Spent on Discharge: 35 Hospital Course: #Pseudomonas UTI #Corneal Ulcer #DAVY on BiPAP #Morbid obesity #COPD #Chronic headaches #HTN #hypothyroidism #DMII #Depression/anxiety 53-year-old female history as above who presented [facility] ED with nausea, vomiting, and altered mental status for 3 hours. Patient was hypotensive and bradycardic, also had white blood cell count of 12.2 with left shift and potassium of 2.7 with creatinine 1.29, she was given a liter of normal saline, potassium, and hydrocortisone x 1 though this was not continued as patient is not chronically on steroids. Patient was admitted and found to have a Pseudomonas UTI and was placed on Merrem and ID consulted who followed. Also patient had 2 positive blood cultures for gram-positive cocci in clusters however these were 2 different staffs it was felt that both may be contaminant, repeat blood cultures negative and echo unremarkable. Of note patient's hereditary cancer program coordinator office called regarding concerns for patient going home due to noncompliance and difficulty caring for self, discussed that patient is to be placed, also they reported she should be on her eyedrops and doxycycline for another month, these were not initially on her medication list with these medications were added to her home list and restarted. Ultimately patient improved, frequently would have multiple complaints but labs stable, vitally stable. Patient reports a little bit of GI upset after eating greasy sausage this a.m. and said it happened with greasy foods before but denies any active vomiting or other acute complaints, advised to avoid greasy foods. Discharged in stable condition with following discharge instructions: -Please follow-up with your hereditary cancer program coordinator upon discharge. You have an appointment scheduled for at 1:45 PM, will be very important that you make this appointment -You will need to take 1 more month of oral doxycycline 100 twice daily as well as the erythromycin ointment and moxifloxacin drops for corneal ulcer in your right eye -It is recommended that you continue to follow with your physician managing your headaches on discharge for further treatment -You will be discharged on methenamine and vitamin C for assistance with UTI prophylaxis -Additionally you were started on Coreg for blood pressure -It will be VERY important to continue to wear BiPAP nightly -You have completed your course of antibiotics Physical Exam Narrative General: Sitting up, awake and alert HEENT: Atraumatic, normocephalic Eyes: Keeps right eye closed Neck: Supple Respiratory: Diminished bilaterally but somewhat due to habitus, no wheezes or rhonchi, normal respiratory effort Cardiovascular: Regular rate GI: Soft, nontender, nondistended Extremities: No significant pitting edema Musculoskeletal: Moving all extremities Neuro: No overt focal neurological deficits Skin: No rashes appreciated Psych: Cooperative Weight / BMI Weight Weight: 132.1 kg Body Mass Index (BMI) 50.0 ABG / Lab / Microbiology Data 05/11/24 07:18 05/11/24 07:18 Laboratory: Laboratory Results - last 24 hr 05/10/24 16:46: POC Glucose 131 H 05/10/24 20:29: POC Glucose 113 H 05/11/24 06:11: POC Glucose 97 05/11/24 07:18: WBC 9.0, RBC 3.49 L, Hgb 10.5 L, Hct 32.5 L, MCV 93.1, MCH 30.1, MCHC 32.3, RDW Std Deviation 55.6 H, RDW Coeff of Alfredo 16.3 H, Plt Count 292, MPV 10.8, Immature Gran % (Auto) 0.400, Neut % (Auto) 62.3, Lymph % (Auto) 24.0, Benson % (Auto) 8.9, Eos % (Auto) 3.7, Baso % (Auto) 0.7, Absolute Neuts (auto) 5.6, Absolute Lymphs (auto) 2.16, Nucleated RBC % 0, Sodium 140, Potassium 3.7, Chloride 106, Carbon Dioxide 21.9, Anion Gap 12, BUN 7, Creatinine 0.84, Estim Creat Clear Calc 104.74, Est GFR (MDRD) Non-Af 83, BUN/Creatinine Ratio 7.8 L, Glucose 89, Calcium 8.8, Vancomycin Trough 13.7 05/11/24 11:16: POC Glucose 98 Microbiology: Microbiology 05/08/24 10:25 Blood Culture (Wb) - Right Hand Blood Culture - Preliminary No growth in 48 hours. 05/08/24 10:25 Blood Culture (Wb) - Left Hand Blood Culture - Preliminary No growth in 48 hours. 05/04/24 21:00 Blood Culture (Wb) - Chest Blood Culture - Final Coag Negative Staph 05/04/24 21:15 Urine, Catheterized Urine Culture - Final Pseudomonas aeruginosa 05/04/24 22:25 Blood Culture (Wb) - Breast Bacteria Detection (PCR) - Final Staphylococcus epidermidis 05/04/24 22:25 Blood Culture (Wb) - Breast Blood Culture - Final Staphylococcus epidermidis 05/05/24 01:00 Mucosa - Nasopharyngeal Respiratory Panel (PCR) - Final D/C Instructions Discharge Diet: - (Carb consistent, calorie controlled) Discharge Activity: - (Increase activity as tolerated) DC O2, CPAP, BIPAP Needs PSN CPAP & BiPAP: BiPAP & CPAP Settings per PSN Mode BiPAP 05/11/24 04:00 Bipap Delivery Device Face Mask 05/11/24 04:00 BiPAP Inspiratory Pressure 14 05/11/24 04:00 BiPAP Expiratory Pressure 7 05/11/24 04:00 BiPAP Rate 12 05/11/24 04:00 Fraction of Inspired Oxygen ( 21 05/11/24 04:00 FIO2) Home O2 Discharge instructions: Yes Type of respiratory needs?: BiPAP BiPAP oxygen liters per minute: 21 BiPAP instructions: 10/09 DC home with Oxygen: No Meaningful Use Info Meaningful Use Meaningful Use Diagnoses (Choose all that apply): None applicable Ischemic Stroke Statin Dosing Therapy Reference: STATIN DOSE THERAPY REFERENCE: * Patients > 75 years receive moderate or high dose statin therapy. * Patients 75 years or YOUNGER should receive HIGH intensity statin dose unless contraindicated. You will be required to document reason for non-treatment if statin daily dose does not meet guidelines. HIGH DOSE STATIN THERAPY DAILY Atorvastatin > than or = to 40 mg Rosuvastatin > than or = to 20 mg Amlodipine + Atorvastatin > than or = to 2.5/40 mg Ezetimibe + Simvastatin 10/80 mg Simvastatin 80mg Discharge Plan Admission Admit Date/Time: 05/04/24 22:43 Primary Reason for Your Visit: Confusion, nausea, vomiting Attending Provider: Leanne Rosas Primary Care Provider: Nasreen Sutton Consulting Providers: Pamela Saleem; Kiran Johnson; Frank Fontana Instructions Patient Instructions: ED Corneal Ulcer Additional Instructions / Restrictions: DISCHARGE INSTRUCTIONS PLEASE READ *Please take this with you to your next doctors appointment* -Please follow-up with your hereditary cancer program coordinator upon discharge. You have an appointment scheduled for at 1:45 PM, will be very important that you make this appointment -You will need to take 1 more month of oral doxycycline 100 twice daily as well as the erythromycin ointment and moxifloxacin drops for corneal ulcer -It is recommended that you continue to follow with your physician managing your headaches on discharge for further treatment -You will be discharged on methenamine and vitamin C for assistance with UTI prophylaxis -Additionally you were started on Coreg for blood pressure -It will be VERY important to continue to wear BiPAP nightly -You have completed your course of antibiotics -Please call your primary care provider's office upon discharge to schedule a hospital follow up within 1 week. -For any concerning signs or symptoms please call 911 or proceed to the nearest emergency department Discharge Orders/Prescriptions Prescriptions: New carboxymethylcellulose sodium [Refresh Tears] 0.5 % Drops 2 drp RIGHT EYE Q1H PRN (Reason: DRY EYES) Qty: 0 0RF methenamine hippurate 1 gram tablet 1 g PO BID 30 Days Qty: 60 0RF ascorbic acid (vitamin C) [Vitamin C] 1,000 mg tablet 1 g PO DAILY Qty: 30 0RF citalopram 20 mg Tablet 20 mg PO DAILY Qty: 0 0RF insulin lispro [Humalog KwikPen Insulin] 100 unit/mL Insulin Pen See Protocol subcut ACHS Qty: 0 0RF Protocol: 2. Sliding Scale Insulin Low-Med Dosing Condition: 150-209 mg/dl = 1 unit Condition: 210-269 mg/dl = 2 units Condition: 270-329 mg/dl = 3 units Condition: 330-389 mg/dl = 4 units Condition: 390-449 mg/dl = 5 units Condition: Greater than 449 call physician Protocol Text: Suggested for: - Patients on Total Daily Insulin Dose of 28-36 units - Average body habitus patients LOW MEDIUM DOSING ALGORITHM carvedilol 6.25 mg Tablet 6.25 mg PO BID Qty: 0 0RF Continued budesonide-formoterol [Symbicort] 160-4.5 mcg/actuation HFA aerosol inhaler 2 puff INHALATION BID ezetimibe [Zetia] 10 mg tablet 10 mg PO QDAY Qty: 30 11RF atorvastatin 80 mg Tablet 80 mg PO DAILY hydroxyzine HCl 25 mg tablet 25 mg PO TID PRN (Reason: anxiety) Qty: 20 0RF Emgality Syringe 120 mg/mL syringe 120 mg subcut Q30D Patient Comments: END OF MONTH trazodone 50 mg tablet 50 - 100 mg PO QHS naratriptan 2.5 mg tablet 2.5 mg PO BID PRN (Reason: migraines) Rx Instructions: can repeat dose, two hours after first dose taken. do not exceed more than two doses in 24 hours. fluticasone propionate 50 mcg/actuation spray,suspension 2 spray INTRANASAL Q12H Patient Comments: [NO ORIGINAL SIG] levothyroxine 200 mcg tablet 200 mcg PO DAILY ondansetron 4 mg tablet,disintegrating 4 mg PO Q8H PRN PRN (Reason: Nausea) Qty: 10 0RF doxycycline hyclate 100 mg tablet 100 mg PO BID erythromycin 5 mg/gram (0.5 %) ointment 1 applic ophthalmic (eye) 4X/DAY moxifloxacin 0.5 % drops 1 drp RIGHT EYE 4X/DAY valsartan 160 mg tablet 160 mg PO BID Qty: 180 3RF isosorbide mononitrate 30 mg tablet extended release 24 hr 30 mg PO DAILY Qty: 30 11RF Changed tramadol 50 mg tablet 50 mg PO TID PRN (Reason: pain) 3 Days Qty: 9 0RF gabapentin 300 mg capsule 100 mg PO TID 3 Days Qty: 3 0RF Discontinued cyclobenzaprine 5 mg tablet 5 mg PO Q8H metoclopramide HCl [Reglan] 10 mg tablet 10 mg PO Q6H PRN (Reason: NAUSEA AND VOMTING ) Qty: 20 0RF ondansetron 4 mg tablet,disintegrating 4 mg PO Q6H PRN PRN (Reason: Nausea) Qty: 15 0RF citalopram 40 mg tablet 40 mg PO DAILY Referrals / Follow Up: John Penaloza [Other] - 06/06/24 1:45 pm (Dr Penaloza is a Corneal specialist. ) Nasreen Sutton MD [Primary Care Provider] - Disposition Disposition (needs filled in before D/C Order can be placed): NonSkilled NH/Intermed Care Charges/Coding Visit Charges Inpatient E&M: 63877 Disch Hosp >30min
--- NOTE | 2024-05-11 13:39 | CASEMGMT ---
Patient is ready for discharge to [facility]. Insurance has denied patient for skilled, but she can go intermediate level of care. SW completed a 7000 in [facility] system. Physicians will transport patient via wheelchair van. Plan: d/c to [facility] under intermediate level of care on a convalescent stay. Physicians will transport patient via wheelchair van. Marta Duran [employer] ENGINEER YOHAN
--- NOTE | 2024-05-11 13:48 | PN.ID_ITS ---
Physical Exam Narrative Feeling better, no fever, no abd pain Const alert and no apparent distress General Appearance: cooperative Resp normal air movement and clear to auscultation bilaterally Cardio regular rate and regular rhythm GI soft to palpation, non-tender and non-distended Skin no rashes or lesions noted ID ID: Route of nutrition/ use of supplements: [] Nutritional Intake: [] IV Site: [] Cueto Catheter: [] Assessment & Plan Assessment/Plan (1) Acute encephalopathy: PLAN: Bcx x2 with MRSE in one, CoNS in the other (it is possible these are two s eparate contaminants). Recurrent PsA uti, ucx here with PsA. Has been on vanc/chacorta. May benefit from methenamine and vit C at discharge for uti prophylaxis. Ok for d/c off of abx. Will follow prn, d/w Dr. Rosas (2) Lactic acidosis:
--- NOTE | 2024-05-11 14:26 | CASEMGMT ---
Discharge Planning Discharge orders, signed med list, and transport time sent to [facility]. Physicians will transport pt by wheelchair at 4p. Nursing, SW, pt, and her mother updated. Ena Kaur DC Planning Asst.
--- NOTE | 2024-05-11 15:19 | NURSING ---
Report called to nurse Ruiz at the [facility]
[2024-05-11 17:19] LABS: Bedside Glucose 89 mg/dL (74-106)
== END 2024-05-11 18:00 | disposition skilled nursing facility (03) | DRG 690 ==
LOC: ED 22:57 → PCU 23:26
PROVIDERS: Internal Medicine; Internal Medicine Infectious Disease; Admitting Provider Family Medicine; Emergency Provider Emergency Medicine; PCP Family Medicine; Visit Provider Internal Medicine
DX: N30.00 Acute cystitis without hematuria (principal); Z68.43 Body mass index [BMI] 50.0-59.9, adult; D63.1 Anemia in chronic kidney disease; E11.22 Type 2 diabetes mellitus with diabetic chronic kidney disease; D50.9 Iron deficiency anemia, unspecified; B96.5 Pseudomonas (aeruginosa) (mallei) (pseudomallei) as the cause of diseases classified elsewhere; Z66 Do not resuscitate; J44.9 Chronic obstructive pulmonary disease, unspecified; N18.31 Chronic kidney disease, stage 3a; E03.9 Hypothyroidism, unspecified; F32.A Depression, unspecified; I12.9 Hypertensive chronic kidney disease with stage 1 through stage 4 chronic kidney disease, or unspecified chronic kidney disease; E11.40 Type 2 diabetes mellitus with diabetic neuropathy, unspecified; E87.6 Hypokalemia; G47.33 Obstructive sleep apnea (adult) (pediatric); E78.00 Pure hypercholesterolemia, unspecified; E66.01 Morbid (severe) obesity due to excess calories; F41.9 Anxiety disorder, unspecified; G43.709 Chronic migraine without aura, not intractable, without status migrainosus; Z79.4 Long term (current) use of insulin; A08.4 Viral intestinal infection, unspecified; H16.001 Unspecified corneal ulcer, right eye; Z91.198 Patient's noncompliance with other medical treatment and regimen for other reason; Z79.51 Long term (current) use of inhaled steroids; Z79.82 Long term (current) use of aspirin; Z79.890 Hormone replacement therapy; Z79.891 Long term (current) use of opiate analgesic; Z79.899 Other long term (current) drug therapy; Z86.73 Personal history of transient ischemic attack (TIA), and cerebral infarction without residual deficits; Z86.711 Personal history of pulmonary embolism; Z86.718 Personal history of other venous thrombosis and embolism
CPT/HCPCS: 36415; 51702; 71045; 80048; 80053; 80076; 80202; 81001; 82533; 82962; 83605; 83690; 83735; 84145; 84439; 84443; 84484; 85025; 85610; 85730; 87040; 87077; 87086; 87088; 87149; 87184; 87186; 87633; 93005; 93308; 94002; 94003; 94640; 94668; 94762; 96361; 96374; 97116; 97162; 97166; 97530; 97535; 97802; 99252; 99283; 99285; J2185; Q9957; A4216; C8924; G0463; J2405

== ENCOUNTER 2024-06-04 21:27 | Emergency (ER) | payer MEDICARE, MEDICAID, SELFPAY ==
[2024-06-04 21:27] VITALS: BP 100/73; PULSE 78; RESP 16; TEMP 36.8; O2SAT 98
[2024-06-04 21:33] VITALS: BMI 49.5
--- NOTE | 2024-06-04 23:11 | RAD_ITS ---
PROCEDURE: CHEST PA AND LATERAL 06/04/2024 REASON FOR EXAM: COUGH TECHNIQUE: Frontal and lateral views of the chest. COMPARISON: 05/04/2024 FINDINGS: Hardware: None Heart: Heart size is mildly enlarged. Mediastinum: The mediastinal contour is stable. Lungs: No focal consolidation. No pneumothorax. No pleural effusion. Bones: No acute osseous abnormality. RAD/Chest PA and Lateral IMPRESSION: NO ACUTE FINDINGS. Reading Location: [facility]
[2024-06-04 23:33] VITALS: PULSE 59; RESP 18; O2SAT 98
[2024-06-04] MEDS: 0.9% Normal Saline (1000mL) 1,000 ML 999 ML IV (23:38)
[2024-06-04 23:45] LABS: Mucous, Urine 0 SEEN /hpf (<or=2+)
[2024-06-04 23:47] LABS: Color, Urine Yellow (Yellow); Glucose, Dipstick 100 mg/dl (Normal); Ketone-Dipstick 5 mg/dl (Negative); Leukocyte Esterase-Dipstick 500 /ul (Negative); Nitrite-Dipstick Negative (Negative); Occult Blood-Urine 10 /ul (Negative); Protein-Dipstick 30 mg/dl (Negative); Specific Gravity, Urine 1.025 (1.002-1.030); Urine Bilirubin Dipstick Negative (Negative); Urine Clarity Clear (Clear); Urine Urobilinogen 1 mg/dl (Normal)
[2024-06-04 23:52] LABS: Absolute Lymphocyte Count 1.56 X10^3/uL (0.83-4.51); Absolute Neutrophil Count 14.7 X10^3/uL (2.0-7.7); Basophil# 0.02 X10^3/uL; Basophil% 0.1 % (0-1); Hematocrit 33.1 % (37-47); Hemoglobin 10.5 g/dL (12.0-15.0); Lymphocyte # 1.56 X10^3/ul (0.83-4.51); Lymphocyte % 8.8 % (19-41); Mean Corp Hgb Conc 31.7 g/dL (32-36); Mean Corpuscular Hgb 29.7 pg (27.0-32.0); Mean Corpuscular Volume 93.5 fL (81-99); Mean Platelet Vol. 10.6 fl (6.2-12.0); Monocyte# 1.08 X10^3/uL; Monocyte% 6.1 % (0-10); NRBC Flagged by Analyzer 0 % (0-5); Neutrophil # 14.71 X10^3/uL (2.7-7.7); Neutrophil % 83.3 % (47-70); Platelet Count 333 K/mm3 (150-450); RBC Distribution Width SD 55.5 fl (35.1-43.9); Red Blood Count 3.54 M/mm3 (4.2-5.4); White Blood Count 17.7 K/mm3 (4.4-11.0)
[2024-06-04 23:56] LABS: Blood Gas Specimen Type VEN; O2 Delivery Device Room Air; SITE Not entered; VBG BASE EXCESS 0 mmol/L (-1.0-3.5); VBG Bicarbonate 26 mmol/L (22-26); VBG PO2 52 mmHg (25-40); VBG SO2 84 % (50-70); VBG TCO2 27 mmol/L (23-33); VBG pCO2 47.3 mmHg (41-51); VBG pH 7.34 (7.32-7.42)
[2024-06-05 00:02] LABS: Anion Gap 13 (5-15); BUN 12 mg/dL (4-19); BUN/Creat Ratio 12.9 RATIO (10-20); Calcium,Total 9.7 mg/dL (7.6-11.0); Carbon Dioxide 21.9 mmol/L (21.0-32.0); Chloride 103 mmol/L (98-108); Creatinine, Serum 0.91 mg/dL (0.70-1.20); EST Glomerular Filtration Rate 76 (>60); Estimated Creatinine Clearance 96.14 ml/min (50-250); Glucose 116 mg/dL (70-99); Potassium 4.2 mmol/L (3.3-5.1); Sodium Level 138 mmol/L (133-145)
[2024-06-05 00:19] LABS: Bacteria RARE /hpf (None Seen); Red Blood Cells-Urine 0-5 SEEN /hpf (0-5); Squamous Epithelial Cells - UA 5-10 SEEN /hpf (5-10); Transitional Epithelial - Ur 0-5 SEEN /hpf (0-5); White Blood Cells 5-10 SEEN /hpf (0-5)
--- NOTE | 2024-06-05 00:51 | CT_ITS ---
PROCEDURE: ABDOMEN/PELVIS W IV CONT ONLY N/A REASON FOR EXAM: RLQ PAIN TECHNIQUE: Abdomen and pelvis CT with intravenous contrast. Coronal and Sagittal reconstruction series were provided. PATIENT PREPARATION: Per protocol ORAL CONTRAST TYPE: None. AMOUNT: None mL CONTRAST: Isovue 370 VOLUME: 94 mL 18 gauge IV One or more dose reduction techniques were used (e.g., Automated exposure control, adjustment of the mA and/or kV according to patient size, use of iterative reconstruction technique. RADIATION DOSE SUMMARY: CTDlvol: 24.5 mGy DLP: 1324.8 mGycm COMPARISON: None available FINDINGS: Lung bases: Unremarkable Liver: Unremarkable Gallbladder: Unremarkable Spleen: Unremarkable Pancreas: Unremarkable Adrenals: Unremarkable Kidneys: Kidneys are normal in size and configuration. No hydronephrosis or nephrolithiasis. Bladder: No focal bladder wall thickening. Reproductive Organs: Unremarkable Bowel: Lack of oral contrast limits evaluation of the bowel. No small bowel obstruction or dilation. The appendix is not well characterized on this examination however, there are no inflammatory changes within the right lower quadrant. No free fluid. Appendix: Not visualized Lymph nodes: No lymphadenopathy. Vasculature: Unremarkable Peritoneum / Retroperitoneum: Unremarkable Bones: No aggressive osseous lesions. No acute fractures. CT/Abdomen/Pelvis W IV Cont ONLY IMPRESSION: No acute pathology within the abdomen or pelvis. Reading Location: [facility]
[2024-06-05 01:00] VITALS: PULSE 74; RESP 20; O2SAT 97
[2024-06-05 02:55] VITALS: PULSE 64; RESP 14; O2SAT 97
--- NOTE | 2024-06-05 03:11 | EX.ED.DYSGE1 ---
HPI History of Present Illness Chief Complaint: Hyperglycemia Informant: patient Narrative Narrative: Patient is a 53-year-old female with past med history of hypothyroidism hyperlipidemia GERD and DAVY on BiPAP. She states she was admitted to the hospital and then after treatment in the hospital sent to a assisted for rehab. She reports she has been in rehab for multiple weeks and was just recently discharged home. She states she is to give herself insulin with each meal but is unsure if she has been doing it correctly. She states that she has been checking her blood sugars and they have been running high between 200 and 300. She states that she is feeling weak with this and secondary to this comes in for evaluation [facility] Medical History Kidney failure MARYANA (acute kidney injury) Fatigue MARYANA (acute kidney injury) Walker as ambulation aid Ambulates with cane Low iron History of renal disease High cholesterol DVT (deep venous thrombosis) PONV (postoperative nausea and vomiting) Stroke/cerebrovascular accident Sleep apnea Fall Cardiology follow-up encounter Scalp hematoma Pulmonary embolism Post-menopausal Thyroid disease Injury of head and neck Dietary restriction Difficulty swallowing BiPAP (biphasic positive airway pressure) dependence COPD (chronic obstructive pulmonary disease) Shortness of breath on exertion Leg cramps History of pain when walking History of edema History of echocardiogram History of stress test Syncope Abnormal glucose Noncompliance DAVY treated with BiPAP UTI (urinary tract infection) Vitamin D deficiency Restless leg syndrome Vitamin B12 deficiency Iron deficiency anemia History of chronic back pain Wears glasses Arthritis Non-smoker Hydronephrosis Depression Anemia Migraine headache Chronic kidney disease Diabetes mellitus Gout Celiac disease Hyperlipidemia GERD (gastroesophageal reflux disease) Dyspnea on exertion Chest pain Hypersomnia Cardiac murmur Microcytic anemia Hypertension Morbid obesity with BMI of 40.0-44.9, adult Asthma Hypothyroidism Anxiety Home Medications ?Medication ?Instructions ?Recorded ?Last Taken ?Type budesonide-formoterol HFA 160 2 puff inhalation BID COPD 04/02/20 04/05/24 History mcg-4.5 mcg/actuation aerosol inhaler (Symbicort) atorvastatin 80 mg tablet 80 mg PO DAILY CHOLESTEROL 02/10/23 04/04/24 History galcanezumab-gnlm 120 mg/mL 120 mg subcut Q30D migraines 07/29/23 Unknown History subcutaneous syringe (Emgality) trazodone 50 mg tablet 50 - 100 mg PO QHS SLEEP 07/29/23 04/04/24 History naratriptan 2.5 mg tablet 2.5 mg PO BID PRN migraines 10/01/23 Unknown History ezetimibe 10 mg tablet (Zetia) 10 mg PO QDAY cholesterol #30 tabs 11/28/23 04/05/24 Rx fluticasone propionate 50 2 spray intranasal Q12H allergies 01/20/24 Unknown History mcg/actuation nasal spray,suspension levothyroxine 200 mcg tablet 200 mcg PO DAILY thyroid 01/20/24 04/05/24 History isosorbide mononitrate 30 mg 30 mg PO DAILY HEART #30 tabs 03/30/24 04/05/24 Rx tablet,extended release 24 hr valsartan 160 mg tablet 160 mg PO BID blood pressure #180 03/30/24 04/05/24 Rx tabs ondansetron 4 mg disintegrating 4 mg PO Q8H PRN PRN Nausea #10 tabs 04/21/24 Unknown Rx tablet hydroxyzine HCl 25 mg tablet 25 mg PO TID PRN anxiety #20 tabs 04/22/24 Unknown Rx doxycycline hyclate 100 mg tablet 100 mg PO BID Corneal ulcer 05/10/24 Unknown History erythromycin 5 mg/gram (0.5 %) eye 1 applic ophthalmic (eye) 4X/DAY 05/10/24 Unknown History ointment Corneal ulcer moxifloxacin 0.5 % eye drops 1 drp RIGHT EYE 4X/DAY corneal 05/10/24 Unknown History ulcer ascorbic acid (vitamin C) 1,000 mg 1 g PO DAILY #30 tabs 05/11/24 Unknown Rx tablet (Vitamin C) carboxymethylcellulose sodium 0.5 2 drp RIGHT EYE Q1H PRN DRY EYES 05/11/24 Unknown Rx % eye drops (Refresh Tears) #0 mL carvedilol 6.25 mg tablet 6.25 mg PO BID #0 tabs 05/11/24 Unknown Rx citalopram 20 mg tablet 20 mg PO DAILY #0 tabs 05/11/24 Unknown Rx gabapentin 300 mg capsule 100 mg (0.3333 x 300 mg) PO TID 05/11/24 Unknown Rx pain 3 days #3 caps insulin lispro 100 unit/mL See Protocol subcut ACHS #0 mL 05/11/24 Unknown Rx subcutaneous pen (Humalog KwikPen (U-100) Insulin) methenamine hippurate 1 gram tablet 1 g PO BID 30 days #60 tabs 05/11/24 Unknown Rx tramadol 50 mg tablet 50 mg PO TID PRN pain 3 days #9 05/11/24 Unknown Rx tabs Allergy/AdvReac Type Severity Reaction Status Date / Time hydrochlorothiazide AdvReac Intermediate Contributes Verified 06/04/24 21:28 to gout naproxen (From Naprosyn) AdvReac Intermediate Nausea Verified 06/04/24 21:28 aspirin AdvReac Nausea Verified 06/04/24 21:28 Penicillins AdvReac Other Verified 06/04/24 21:28 Family History Father , Age 72 Hypertension Mother CAD (coronary artery disease) Myocardial infarction, Onset Age: 55 Hypertension Sister CAD (coronary artery disease) Brother Cancer Surgical History History of cardiac catheterization History of History of carpal tunnel surgery of right wrist History of carpal tunnel surgery of left wrist Hx of cystoscopy History of left heart catheterization (11/11/20) history of uterine ablation Social History (Updated 05/04/24 @ 23:[address] Pamela Saleem MD) household members: spouse housing: apartment Smoking Status: Never smoker alcohol intake: never substance use type: does not use caffeine: No ROS ROS ED Constitutional Constitutional ED: Reports other Details: Positive generalized weakness ; Denies chills or fever(s) Eyes Eyes: Denies blurry vision or change in vision ENT ENT ED: Denies sore throat Cardiovascular Cardiovascular: Denies chest pain Respiratory/Chest Respiratory/Chest: Denies cough or dyspnea Gastrointestinal Gastrointestinal: Reports nausea; Denies abdominal pain, diarrhea or vomiting Genitourinary Genitourinary ED: Denies dysuria or hematuria Musculoskeletal Musculoskeletal: Denies myalgias Integumentary Denies rash Neurologic Neurologic: Reports weakness; Denies headache(s) Hematologic/Lymphatic Hematologic/Lymphatic: Denies easy bleeding or easy bruising EXAM Physical Exam Const Vital Signs: 06/04/24 21:27 06/04/24 23:33 06/04/24 23:36 Temperature 98.2 F Temperature Source Oral Pulse Rate 78 59 L Respiratory Rate 16 18 Respiratory Effort Normal Blood Pressure 100/73 Blood Pressure Mean 82 Pulse Ox 98 98 Oxygen Delivery Method Room Air 06/05/24 01:00 06/05/24 02:55 Temperature Temperature Source Pulse Rate 74 64 Respiratory Rate 20 H 14 Respiratory Effort Blood Pressure Blood Pressure Mean Pulse Ox 97 97 Oxygen Delivery Method Room Air Room Air Positive well nourished, well developed and obese General Appearance ED: well developed Nutritional Appearance: obese HEENT HEENT Narrative: No tongue or lip swelling no oral lesions no airway edema or compromise. No secondary findings in the posterior pharynx to suggest infection Eyes PERRL and EOMs intact bilaterally General Eye ED: Negative for scleral icterus Neck supple Neck Narrative: No nuchal rigidity or meningeal signs noted Resp normal respiratory effort and clear to auscultation bilaterally Resp Narrative: Breath sounds are diminished throughout but overall clear to auscultation without signs of respiratory distress Cardio regular rate and regular rhythm Rate: other Other Details: Radial and carotid pulses are equal and symmetric GI non-distended and no masses GI Narrative: Abdomen is obese soft and nondistended with normal active bowel sounds. There is mild pain with palpation in the suprapubic and right lower quadrant region without voluntary guarding or rigidity or pulsatile mass Auscultation: normoactive bowel sounds Palpation: soft Extremity normal to inspection Neuro oriented x3, CN's II-XII intact bilaterally and no sensory deficits noted Sensorium / Orientation: alert Motor Exam: strength 5/5 throughout Psych Psych Narrative: Patient has a flat/depressed affect Skin no rashes or lesions noted Skin Narrative: No soft tissue skin changes to suggest cellulitis abscess or diabetic ulcer MDM MDM MDM Narrative Medical decision making narrative: Patient arrived to the ER complaining elevated blood sugar after being sent home from the assisted and reportedly using her insulin. Differential diagnosis is for medication noncompliance versus potential secondary infection such as UTI or pneumonia causing elevated blood sugar versus DKA or HHS. Therefore basic blood work was obtained as well as chest x-ray and urine sample. Patient's chest x-ray revealed no acute lung pathology. Urine sample showed no obvious findings for infection as there is only small amount of white blood cells with mild skin contamination and rare bacteria. With her history of diabetes and mild suprapubic pain on exam I will send this for culture but do not feel classifies as true infection and therefore there is no need for antibiotics. Patient's white count was elevated at 17.7 which is most likely stress response but as there is no obvious source of infection upon exam chest x-ray or urine sample I will add a CT scan of the abdomen and pelvis as she had mild right lower quadrant pain. CT scan revealed no obvious intestinal pathology such as appendicitis colitis or perforation or obstruction. The patient is also not in DKA or HHS. Her blood sugar on laboratory studies was 116 which is not clinically significant. Therefore at this time with patient's blood sugar improved with the medication she provided at home and no obvious signs of infection there is no need for admission and she is otherwise safe for discharge History & Record Review Discussion w/independent historian: Patient Lab Data Attestation: I reviewed the patient's lab results. Labs: Laboratory Results - last 24 hr 06/04/24 23:30 WBC 17.7 H RBC 3.54 L Hgb 10.5 L Hct 33.1 L MCV 93.5 MCH 29.7 MCHC 31.7 L RDW Std Deviation 55.5 H RDW Coeff of Alfredo 16.0 H Plt Count 333 MPV 10.6 Immature Gran % (Auto) 1.700 H Neut % (Auto) 83.3 H Lymph % (Auto) 8.8 L [place] % (Auto) 6.1 Eos % (Auto) 0.0 Baso % (Auto) 0.1 Absolute Neuts (auto) 14.7 H Absolute Lymphs (auto) 1.56 Nucleated RBC % 0 Sodium 138 Potassium 4.2 Chloride 103 Carbon Dioxide 21.9 Anion Gap 13 BUN 12 Creatinine 0.91 Estim Creat Clear Calc 96.14 Est GFR (MDRD) Non-Af 76 BUN/Creatinine Ratio 12.9 Glucose 116 H Calcium 9.7 Urine Color Yellow Urine Clarity Clear Urine pH 5.0 Ur Specific [place] 1.025 Urine Protein 30 H Urine Glucose (UA) 100 H Urine Ketones 5 H Urine Occult Blood 10 H Urine Nitrite Negative Urine Bilirubin Negative Urine Urobilinogen 1 H Ur Leukocyte Esterase 500 H Urine RBC 0-5 SEEN Urine WBC 5-10 SEEN Ur Squamous Epith Cells 5-10 SEEN Ur Transition Epith Cell 0-5 SEEN Urine Bacteria RARE Urine Mucus 0 SEEN ABG Data ABG results: ABG 06/04/24 23:51 Specimen Type MALISSA Sample Site Not entered VBG pH 7.34 VBG pO2 52 H VBG HCO3 26 VBG Total CO2 27 VBG O2 Sat (Calc) 84 H VBG Base Excess 0 POC Mix VBG pCO2 Pt Tmp 47.3 O2 Delivery Device Room Air Radiography Diagnostic Testing: Clinical Impression(s) from Imaging Studies Chest X-Ray 06/04/24 23:11 IMPRESSION: NO ACUTE FINDINGS. Reading [facility] Abdomen/Pelvis CT 06/05/24 00:51 IMPRESSION: No acute pathology within the abdomen or pelvis. Reading Location: [facility] Chest x-ray as interpreted by the emergency medicine as this reveals no acute infiltrate pneumothorax or pleural effusion Discharge Plan Triage Chief Complaint: Hyperglycemia ED Provider: Sanjay Garcia Dx/Rx/DC Orders Clinical Impression: Diabetes mellitus type 2, insulin dependent, Hyperglycemia, COPD (chronic obstructive pulmonary disease), GERD (gastroesophageal reflux disease), Hypothyroidism Instructions: Blood Sugar Check Steps, ED Diabetic Hyperglycemia Prescriptions: No Action budesonide-formoterol [Symbicort] 160-4.5 mcg/actuation HFA aerosol inhaler 2 puff INHALATION BID ezetimibe [Zetia] 10 mg tablet 10 mg PO QDAY Qty: 30 11RF atorvastatin 80 mg Tablet 80 mg PO DAILY hydroxyzine HCl 25 mg tablet 25 mg PO TID PRN (Reason: anxiety) Qty: 20 0RF Emgality Syringe 120 mg/mL syringe 120 mg subcut Q30D Patient Comments: END OF MONTH trazodone 50 mg tablet 50 - 100 mg PO QHS naratriptan 2.5 mg tablet 2.5 mg PO BID PRN (Reason: migraines) Rx Instructions: can repeat dose, two hours after first dose taken. do not exceed more than two doses in 24 hours. fluticasone propionate 50 mcg/actuation spray,suspension 2 spray INTRANASAL Q12H Patient Comments: [NO ORIGINAL SIG] levothyroxine 200 mcg tablet 200 mcg PO DAILY ondansetron 4 mg tablet,disintegrating 4 mg PO Q8H PRN PRN (Reason: Nausea) Qty: 10 0RF doxycycline hyclate 100 mg tablet 100 mg PO BID erythromycin 5 mg/gram (0.5 %) ointment 1 applic ophthalmic (eye) 4X/DAY moxifloxacin 0.5 % drops 1 drp RIGHT EYE 4X/DAY carboxymethylcellulose sodium [Refresh Tears] 0.5 % Drops 2 drp RIGHT EYE Q1H PRN (Reason: DRY EYES) Qty: 0 0RF methenamine hippurate 1 gram tablet 1 g PO BID 30 Days Qty: 60 0RF ascorbic acid (vitamin C) [Vitamin C] 1,000 mg tablet 1 g PO DAILY Qty: 30 0RF citalopram 20 mg Tablet 20 mg PO DAILY Qty: 0 0RF insulin lispro [Humalog KwikPen Insulin] 100 unit/mL Insulin Pen See Protocol subcut ACHS Qty: 0 0RF Protocol: 2. Sliding Scale Insulin Low-Med Dosing Condition: 150-209 mg/dl = 1 unit Condition: 210-269 mg/dl = 2 units Condition: 270-329 mg/dl = 3 units Condition: 330-389 mg/dl = 4 units Condition: 390-449 mg/dl = 5 units Condition: Greater than 449 call physician Protocol Text: Suggested for: - Patients on Total Daily Insulin Dose of 28-36 units - Average body habitus patients LOW MEDIUM DOSING ALGORITHM tramadol 50 mg tablet 50 mg PO TID PRN (Reason: pain) 3 Days Qty: 9 0RF gabapentin 300 mg capsule 100 mg PO TID 3 Days Qty: 3 0RF carvedilol 6.25 mg Tablet 6.25 mg PO BID Qty: 0 0RF valsartan 160 mg tablet 160 mg PO BID Qty: 180 3RF isosorbide mononitrate 30 mg tablet extended release 24 hr 30 mg PO DAILY Qty: 30 11RF Primary Care Provider: Nasreen Sutton Referrals: Nasreen Sutton MD [Primary Care Provider] - Activity Restrictions/Additional Instructions: Your workup today revealed no obvious signs of infection causing elevation to your blood sugar nor are you in DKA or HHS which are metabolic derangements that occur when your sugar is too high for too long. Your blood sugar in the ER was appropriate at 116. Please continue your insulin as directed by your doctor and return to the ER should you have any further concerns Print Language: Divehi Disposition Disposition: Home, Self Care Discharge Date/Time: 06/05/24 03:38
[2024-06-05 03:56] LABS: Bedside Glucose 157 mg/dL (74-106)
== END 2024-06-05 03:38 | disposition home or self-care (01) ==
PROVIDERS: Emergency Provider Emergency Medicine; PCP Family Medicine; Visit Provider Emergency Medicine
DX: E11.65 Type 2 diabetes mellitus with hyperglycemia (principal); J44.9 Chronic obstructive pulmonary disease, unspecified; Z79.4 Long term (current) use of insulin; I10 Essential (primary) hypertension; E03.9 Hypothyroidism, unspecified; K21.9 Gastro-esophageal reflux disease without esophagitis; Z79.890 Hormone replacement therapy; Z79.899 Other long term (current) drug therapy
CPT/HCPCS: 71046; 74177; 80048; 81001; 82803; 82962; 85025; 87077; 87086; 87088; 87186; 87631; 99285; Q9967

== ENCOUNTER → 2024-06-11 | Outpatient (CLI) | payer MEDICARE, MEDICAID, SELFPAY ==
[2024-06-11 15:12] LABS: Absolute Lymphocyte Count 2.22 X10^3/uL (0.83-4.51); Absolute Neutrophil Count 11.2 X10^3/uL (2.0-7.7); Basophil# 0.05 X10^3/uL; Basophil% 0.3 % (0-1); Eosinophil# 0.22 X10^3/uL; Eosinophils% 1.5 % (0-5); Hematocrit 34.7 % (37-47); Lymphocyte # 2.22 X10^3/ul (0.83-4.51); Lymphocyte % 15.2 % (19-41); Mean Corp Hgb Conc 31.7 g/dL (32-36); Mean Corpuscular Volume 91.6 fL (81-99); Mean Platelet Vol. 11.5 fl (6.2-12.0); Monocyte# 0.89 X10^3/uL; Monocyte% 6.1 % (0-10); NRBC Flagged by Analyzer 0 % (0-5); Neutrophil # 11.18 X10^3/uL (2.7-7.7); Neutrophil % 76.3 % (47-70); Platelet Count 317 K/mm3 (150-450); RBC Distribution Width SD 54.1 fl (35.1-43.9); Red Blood Count 3.79 M/mm3 (4.2-5.4); White Blood Count 14.7 K/mm3 (4.4-11.0)
[2024-06-11 16:18] LABS: Microalbumin,Random Urine 20.5 mg/L (NO RANGE EST.)
[2024-06-11 17:10] LABS: Hemoglobin A1c 6.1 % (<=5.6)
[2024-06-11 19:11] LABS: ALB/GLOB Ratio 1.2 RATIO (0.9-2.4); AST(SGOT) 31 U/L (<=31); Alanine Aminotransfer ALT/SGPT 57 U/L (<=34); Albumin, Serum 3.5 g/dL (3.5-5.0); Alkaline Phosphatase 155 U/L (35-104); Anion Gap 14 (5-15); BUN 12 mg/dL (4-19); BUN/Creat Ratio 12.1 RATIO (10-20); Calcium,Total 9.6 mg/dL (7.6-11.0); Carbon Dioxide 22.8 mmol/L (21.0-32.0); Chloride 103 mmol/L (98-108); Creatinine, Serum 0.99 mg/dL (0.70-1.20); EST Glomerular Filtration Rate 68 (>60); Glucose 119 mg/dL (70-99); Potassium 3.6 mmol/L (3.3-5.1); Protein, Total 6.5 g/dL (5.9-8.4); Sodium Level 140 mmol/L (133-145); Total Bilirubin 0.43 mg/dL (0.00-1.30); Vitamin D,25 Hydroxy 10.5 ng/mL (30-100)
== END | disposition home or self-care (01) ==
LOC: MFPLAB 12:11
PROVIDERS: PCP Family Medicine; Referring Provider Family Medicine; Visit Provider Family Medicine
DX: E11.22 Type 2 diabetes mellitus with diabetic chronic kidney disease (principal); N18.30 Chronic kidney disease, stage 3 unspecified; D63.1 Anemia in chronic kidney disease; E03.9 Hypothyroidism, unspecified
CPT/HCPCS: 36415; 80053; 82043; 82306; 83036; 84443; 85025

== ENCOUNTER → 2024-06-13 | Outpatient (CLI) | payer MEDICARE, MEDICAID, SELFPAY ==
--- NOTE | 2024-06-13 16:57 | RAD_ITS ---
PROCEDURE: CERV SPINE 2 OR 3 VIEWS 06/13/2024 REASON FOR EXAM: NECK PAIN TECHNIQUE: 4 views of the cervical spine. AP, lateral, swimmer's and open mouth odontoid COMPARISON: None available FINDINGS: Cervical spine is visualized on the lateral view from the skull base to the bottom of C7. The C7-T1 alignment is not well evaluated. No fracture or malalignment identified. Mild disc space narrowing C4-5 and C5-6 with small anterior inferior corner osteophyte at C5. Moderate disc space narrowing C6-7 with [id number] anterior osteophyte formation. Question possibility of at least moderate appearing left carotid calcific plaque formation. The visualized upper lungs appear clear. RAD/Cerv Spine 2 or 3 Views IMPRESSION: Multilevel spondylosis/discogenic change as above. Question possibility of at least moderate appearing left carotid calcific plaqu e formation. May consider follow-up nonemergent further carotid evaluation as warranted. Reading Location: [id number]
== END | disposition home or self-care (01) ==
LOC: RAD 16:51
PROVIDERS: PCP Family Medicine; Referring Provider Anesthesiology Pain Medicine; Visit Provider Anesthesiology Pain Medicine
DX: M54.2 Cervicalgia (principal)
CPT/HCPCS: 72040

== ENCOUNTER 2024-06-27 15:24 | Emergency (ER) | payer MEDICARE, MEDICAID, SELFPAY ==
[2024-06-27 15:24] VITALS: BP 141/93; PULSE 69; RESP 22; TEMP 36.3; O2SAT 100; BMI 49.8
--- NOTE | 2024-06-27 15:34 | EX.ED.DYSGE1 ---
HPI History of Present Illness Chief Complaint: Dizziness Informant: patient Onset/Context/Timing Onset: Yesterday Context: Sudden Onset Timing: Intermittent Quality: Shaky Location: Generalized Worsened by: Standing Relieved by: Sitting Narrative Narrative: Patient presents with fall that occurred last night. Patient states she got up and felt dizzy. Patient states this caused her to fall. Patient states she feels shaky whenever she stands up. Patient denies any spinning sensation. Patient denies any nausea or vomiting. Patient does admit to a mild headache. Patient states her dizziness was worse with standing and better with sitting. Patient denies any hearing changes or tinnitus. Patient denies any visual changes. Patient states she did twist her right ankle when she fell. Patient noted some bruising to the right ankle. Patient states she went to the urgent care to try to avoid coming to the emergency department. Patient states that because of her dizziness she was referred to the emergency department for CT scan. [facility] Medical History Kidney failure MARYANA (acute kidney injury) Fatigue MARYANA (acute kidney injury) Walker as ambulation aid Ambulates with cane Low iron History of renal disease High cholesterol DVT (deep venous thrombosis) PONV (postoperative nausea and vomiting) Stroke/cerebrovascular accident Sleep apnea Fall Cardiology follow-up encounter Scalp hematoma Pulmonary embolism Post-menopausal Thyroid disease Injury of head and neck Dietary restriction Difficulty swallowing BiPAP (biphasic positive airway pressure) dependence COPD (chronic obstructive pulmonary disease) Shortness of breath on exertion Leg cramps History of pain when walking History of edema History of echocardiogram History of stress test Syncope Abnormal glucose Noncompliance DAVY treated with BiPAP UTI (urinary tract infection) Vitamin D deficiency Restless leg syndrome Vitamin B12 deficiency Iron deficiency anemia History of chronic back pain Wears glasses Arthritis Non-smoker Hydronephrosis Depression Anemia Migraine headache Chronic kidney disease Diabetes mellitus Gout Celiac disease Hyperlipidemia GERD (gastroesophageal reflux disease) Dyspnea on exertion Chest pain Hypersomnia Cardiac murmur Microcytic anemia Hypertension Morbid obesity with BMI of 40.0-44.9, adult Asthma Hypothyroidism Anxiety Home Medications ?Medication ?Instructions ?Recorded ?Last Taken ?Type budesonide-formoterol HFA 160 2 puff inhalation BID COPD 04/02/20 06/26/24 History mcg-4.5 mcg/actuation aerosol inhaler (Symbicort) trazodone 50 mg tablet 50 - 100 mg PO QHS SLEEP 07/29/23 06/26/24 History naratriptan 2.5 mg tablet 2.5 mg PO BID PRN migraines 10/01/23 Unknown History fluticasone propionate 50 2 spray intranasal Q12H allergies 01/20/24 06/27/24 History mcg/actuation nasal spray,suspension levothyroxine 200 mcg tablet 200 mcg PO DAILY thyroid 01/20/24 06/27/24 History isosorbide mononitrate 30 mg 30 mg PO DAILY HEART #30 tabs 03/30/24 06/27/24 Rx tablet,extended release 24 hr valsartan 160 mg tablet 160 mg PO BID blood pressure #180 03/30/24 06/27/24 Rx tabs doxycycline hyclate 100 mg tablet 100 mg PO BID Corneal ulcer 05/10/24 06/27/24 History erythromycin 5 mg/gram (0.5 %) eye 1 applic ophthalmic (eye) 4X/DAY 05/10/24 06/27/24 History ointment Corneal ulcer ascorbic acid (vitamin C) 1,000 mg 1 g PO DAILY #30 tabs 05/11/24 06/27/24 Rx tablet (Vitamin C) carboxymethylcellulose sodium 0.5 2 drp RIGHT EYE Q1H PRN DRY EYES 05/11/24 06/27/24 Rx % eye drops (Refresh Tears) #0 mL carvedilol 6.25 mg tablet 6.25 mg PO BID #0 tabs 05/11/24 06/27/24 Rx citalopram 20 mg tablet 20 mg PO DAILY #0 tabs 05/11/24 06/27/24 Rx methenamine hippurate 1 gram tablet 1 g PO BID 30 days #60 tabs 05/11/24 06/27/24 Rx tramadol 50 mg tablet 50 mg PO TID PRN pain 3 days #9 05/11/24 06/27/24 Rx tabs atenolol 25 mg tablet 25 mg PO DAILY 06/27/24 06/27/24 History atorvastatin 40 mg tablet 40 mg PO QHS 06/27/24 06/26/24 History ezetimibe 10 mg tablet (Zetia) 10 mg PO DAILY cholesterol 06/27/24 06/27/24 History fluoxetine 40 mg capsule 40 mg PO DAILY 06/27/24 06/27/24 History furosemide 40 mg tablet 40 mg PO DAILY 06/27/24 06/27/24 History gabapentin 300 mg capsule 300 mg PO TID pain 06/27/24 06/27/24 History galcanezumab-gnlm 120 mg/mL 120 mg subcut Q30D 06/27/24 Unknown History subcutaneous pen injector (Emgality Pen) insulin lispro 100 unit/mL 1 sliding scale dose subcut ACHS 06/27/24 06/27/24 History subcutaneous pen (Humalog KwikPen (U-100) Insulin) levothyroxine 25 mcg tablet 25 mcg PO DAILY 06/27/24 06/27/24 History metoclopramide HCl 10 mg tablet 10 mg PO TID 06/27/24 06/27/24 History nystatin 100,000 unit/gram topical 1 applic topical BID 06/27/24 06/27/24 History cream ondansetron 4 mg disintegrating 4 mg PO Q8H PRN Nausea 06/27/24 Unknown History tablet rimegepant 75 mg disintegrating 75 mg PO DAILY PRN migraine 06/27/24 Unknown History tablet (Nurtec ODT) Allergy/AdvReac Type Severity Reaction Status Date / Time hydrochlorothiazide AdvReac Intermediate Contributes Verified 06/27/24 15:24 to gout naproxen (From Naprosyn) AdvReac Intermediate Nausea Verified 06/27/24 15:24 aspirin AdvReac Nausea Verified 06/27/24 15:24 Penicillins AdvReac Other Verified 06/27/24 15:24 Family History Father , Age 72 Hypertension Mother CAD (coronary artery disease) Myocardial infarction, Onset Age: 55 Hypertension Sister CAD (coronary artery disease) Brother Cancer Surgical History History of cardiac catheterization History of History of carpal tunnel surgery of right wrist History of carpal tunnel surgery of left wrist Hx of cystoscopy History of left heart catheterization (11/11/20) history of uterine ablation Social History household members: spouse housing: apartment Smoking Status: Never smoker alcohol intake: never substance use type: does not use caffeine: No ROS ROS ED Constitutional Constitutional ED: Denies chills or fever(s) Eyes Eyes: Denies blurry vision or change in vision ENT ENT ED: Denies rhinorrhea or sore throat Cardiovascular Cardiovascular: Denies chest pain or palpitations Respiratory/Chest Respiratory/Chest: Denies cough or dyspnea Gastrointestinal Gastrointestinal: Denies nausea or vomiting Genitourinary Genitourinary ED: Denies dysuria or hematuria Musculoskeletal Musculoskeletal: Reports neck pain; Denies back pain Integumentary Denies abscess or rash Neurologic Neurologic: Reports headache(s); Denies weakness Allergic/Immunologic Allergic/Immunologic ED: Denies mouth swelling or urticaria EXAM Physical Exam Const Vital Signs: 06/27/24 15:24 06/27/24 16:13 06/27/24 17:24 Temperature 97.3 F L Temperature Source Temporal Pulse Rate 69 70 Pulse Rate [Lying] 67 Pulse Rate [Sitting (for 1 minute prior to obtaining)] 65 Pulse Rate [Standing (for 1 minute prior to obtaining)] 70 Respiratory Rate 22 H 18 Blood Pressure 141/93 H 124/73 H Blood Pressure [Lying] 135/71 H Blood Pressure [Sitting (for 1 minute prior to obtaining)] 158/86 H Blood Pressure [Standing (for 1 minute prior to obtaining)] 171/99 H Blood Pressure Mean 109 90 Blood Pressure Mean [Lying] 92 Blood Pressure Mean [Sitting (for 1 minute prior to obtaining)] 110 Blood Pressure Mean [Standing (for 1 minute prior to obtaining)] 123 Pulse Ox 100 97 Oxygen Delivery Method Room Air Room Air Positive well nourished and well developed Constitutional Narrative: BMI is 49.8 General Appearance ED: well developed and NAD HEENT Reports moist mucous membranes Negative for trauma Neck supple and no JVD Resp normal respiratory effort and clear to auscultation bilaterally Cardio regular rate and regular rhythm GI non-tender and non-distended Palpation: soft Extremity Extremity Narrative: There is tenderness, edema, and ecchymosis over the lateral aspect of the right ankle. There is no obvious deformity noted. There is no tenderness over the fifth metatarsal. There is no tenderness over the proximal fibula. Range of motion was limited in all motions of the right ankle secondary to pain. Pedal pulses are equal bilaterally. Sensation was intact to light touch in all digits. Capillary refill was less than 2 seconds in all digits. Strength is 5/5 bilaterally in the lower extremities. Neuro oriented x3, CN's II-XII intact bilaterally and no sensory deficits noted Sensorium / Orientation: alert Motor Exam: strength 5/5 throughout Psych mental status grossly normal MDM MDM MDM Narrative Medical decision making narrative: Differential diagnosis includes orthostatic hypotension, dehydration, hypovolemia, electrolyte abnormality, vertigo, intracranial bleeding, stroke, urinary tract infection, ankle fracture, and ankle sprain. CT scan of the brain will be obtained to assess for intracranial bleeding and stroke. CBC will be obtained to assess for leukocytosis and anemia. Basic metabolic profile will be obtained to assess for electrolyte abnormality and renal function. Urinalysis will be obtained to assess for urinary tract infection and hematuria. X-rays of the right ankle will be obtained to assess for clinical fractures. Orthostatic vital signs will be obtained to assess for hypovolemia and dehydration. History & Record Review Additional record(s) reviewed:: Prior ED visit and Prior labs Lab Data Attestation: I reviewed the patient's lab results. Lab results narrative: CBC was reviewed. There is a mild leukocytosis of 11.2. Hemoglobin was 10.5 and hematocrit was 33.4. Platelets were normal. These are consistent with previous results. Basic metabolic profile was reviewed. Creatinine was slightly elevated at 1.23. This was slightly increased from previous results. Glucose was 110. This is consistent with previous results. Urinalysis was reviewed. Leukocyte esterase was 500. There were 10-25 white blood cells and 10-25 epithelial cells. There are rare bacteria. Labs: Laboratory Results - last 24 hr 06/27/24 06/27/24 16:05 16:25 WBC 11.2 H RBC 3.53 L Hgb 10.5 L Hct 33.4 L MCV 94.6 MCH 29.7 MCHC 31.4 L RDW Std Deviation 55.7 H RDW Coeff of Alfredo 16.5 H Plt Count 414 MPV 10.5 Immature Gran % (Auto) 0.600 Neut % (Auto) 73.1 H Lymph % (Auto) 16.8 L [place] % (Auto) 5.3 Eos % (Auto) 3.7 Baso % (Auto) 0.5 Absolute Neuts (auto) 8.2 H Absolute Lymphs (auto) 1.89 Nucleated RBC % 0 Sodium 141 Potassium 3.6 Chloride 102 Carbon Dioxide 26.0 Anion Gap 13 BUN 7 Creatinine 1.23 H Estim Creat Clear Calc 71.39 Est GFR (MDRD) Non-Af 53 L BUN/Creatinine Ratio 5.5 L Glucose 110 H Calcium 9.5 Urine Color Yellow Urine Clarity Sl. Cloudy Urine pH 6.0 Ur Specific Marshall 1.015 Urine Protein TNP Urine Glucose (UA) Normal Urine Ketones Negative Urine Occult Blood Negative Urine Nitrite Negative Urine Bilirubin Negative Urine Urobilinogen Normal Ur Leukocyte Esterase 500 H Urine RBC 0-5 SEEN Urine WBC 10-25 SEEN Ur Squamous Epith Cells 10-25 SEEN Urine Bacteria RARE Urine Mucus 0 SEEN Urine Yeast RARE U Random Total Protein 16.3 H Radiography Diagnostic Testing: Clinical Impression(s) from Imaging Studies Ankle X-Ray 06/27/24 15:48 IMPRESSION: No acute fracture or dislocation. Reading Location: [facility] Brain CT 06/27/24 16:25 IMPRESSION: No acute intracranial abnormality. Reading Location: [facility] X-rays of the right ankle were obtained. There are 3 views. On my independent interpretation, there is no acute fracture or dislocation noted. There is no soft tissue swelling noted. Radiologist also interpreted the x-rays and agrees. CT scan of the brain was obtained. There is no acute intracranial abnormality. This was interpreted by the radiologist and was also independently reviewed by myself. Treatment and Re-Evaluation :: Patient was given IV fluids. Orthostatic vital signs were reviewed and were negative. Patient was advised of her findings. The urinalysis is most likely contaminated specimen. Urine culture will be obtained. If something grows on the urine culture, patient will be contacted and prescribed antibiotics at that time. Patient was given an Aircast. Patient was instructed to ice and elevate her right ankle. Patient was instructed to follow-up with her primary care physician in 5 to 7 days. Patient understood and was agreeable with the plan. All questions were answered. Discharge Plan Triage Chief Complaint: Dizziness ED Provider: Anam Cuevas Dx/Rx/DC Orders Clinical Impression: Dizziness, Fall, Right ankle sprain Instructions: ED Dizziness, Uncertain Cause, ED Ankle Sprain (Adult) Prescriptions: No Action budesonide-formoterol [Symbicort] 160-4.5 mcg/actuation HFA aerosol inhaler 2 puff INHALATION BID trazodone 50 mg tablet 50 - 100 mg PO QHS naratriptan 2.5 mg tablet 2.5 mg PO BID PRN (Reason: migraines) Rx Instructions: can repeat dose, two hours after first dose taken. do not exceed more than two doses in 24 hours. fluticasone propionate 50 mcg/actuation spray,suspension 2 spray INTRANASAL Q12H Patient Comments: [NO ORIGINAL SIG] levothyroxine 200 mcg tablet 200 mcg PO DAILY Patient Comments: PT STATES SHE TAKES BOTH 200MCG AND 25 MCG. doxycycline hyclate 100 mg tablet 100 mg PO BID Patient Comments: START DATE- 06/22/24 erythromycin 5 mg/gram (0.5 %) ointment 1 applic ophthalmic (eye) 4X/DAY carboxymethylcellulose sodium [Refresh Tears] 0.5 % Drops 2 drp RIGHT EYE Q1H PRN (Reason: DRY EYES) Qty: 0 0RF methenamine hippurate 1 gram tablet 1 g PO BID 30 Days Qty: 60 0RF ascorbic acid (vitamin C) [Vitamin C] 1,000 mg tablet 1 g PO DAILY Qty: 30 0RF citalopram 20 mg Tablet 20 mg PO DAILY Qty: 0 0RF tramadol 50 mg tablet 50 mg PO TID PRN (Reason: pain) 3 Days Qty: 9 0RF carvedilol 6.25 mg Tablet 6.25 mg PO BID Qty: 0 0RF atenolol 25 mg tablet 25 mg PO DAILY fluoxetine 40 mg capsule 40 mg PO DAILY furosemide 40 mg tablet 40 mg PO DAILY atorvastatin 40 mg tablet 40 mg PO QHS levothyroxine 25 mcg tablet 25 mcg PO DAILY Patient Comments: PT STATES SHE TAKES BOTH 200MCG AND 25 MCG. nystatin 100,000 unit/gram cream 1 applic topical BID metoclopramide HCl 10 mg tablet 10 mg PO TID Emgality Pen 120 mg/mL pen injector 120 mg SUBCUT Q30D Patient Comments: TAKES TOWARDS THE END OF THE MONTH Nurtec ODT 75 mg tablet,disintegrating 75 mg PO DAILY PRN (Reason: migraine) gabapentin 300 mg capsule 300 mg PO TID ondansetron 4 mg tablet,disintegrating 4 mg PO Q8H PRN (Reason: Nausea) insulin lispro [Humalog KwikPen Insulin] 100 unit/mL Insulin Pen 1 sliding scale dose subcut ACHS Protocol: 2. Sliding Scale Insulin Low-Med Dosing Condition: 150-209 mg/dl = 1 unit Condition: 210-269 mg/dl = 2 units Condition: 270-329 mg/dl = 3 units Condition: 330-389 mg/dl = 4 units Condition: 390-449 mg/dl = 5 units Condition: Greater than 449 call physician Protocol Text: Suggested for: - Patients on Total Daily Insulin Dose of 28-36 units - Average body habitus patients LOW MEDIUM DOSING ALGORITHM ezetimibe [Zetia] 10 mg tablet 10 mg PO DAILY valsartan 160 mg tablet 160 mg PO BID Qty: 180 3RF isosorbide mononitrate 30 mg tablet extended release 24 hr 30 mg PO DAILY Qty: 30 11RF Primary Care Provider: Nasreen Sutton Referrals: Nasreen Sutton MD [Primary Care Provider] - 5-7 Days Print Language: Pakistani Disposition Disposition: Home, Self Care
--- NOTE | 2024-06-27 15:48 | RAD_ITS ---
PROCEDURE: ANKLE MIN 3 VIEWS 06/27/2024 REASON FOR EXAM: INJURY/PAIN TECHNIQUE: 3 views of the right ankle COMPARISON: 09/09/2023 FINDINGS: No acute fracture or dislocation. Ankle mortise and joint spaces are within normal limits. No significant soft tissue swelling. Small plantar calcaneal enthesophyte. RAD/Ankle min 3 Views IMPRESSION: No acute fracture or dislocation. Reading Location: [facility]
[2024-06-27 16:13] VITALS: BP 135/71; BP 158/86; BP 171/99; PULSE 65; PULSE 67; PULSE 70
--- NOTE | 2024-06-27 16:25 | CT_ITS ---
PROCEDURE: BRAIN/HEAD WITHOUT CONTRAST 06/27/2024 REASON FOR EXAM: DIZZINESS TECHNIQUE: Head CT without intravenous contrast. Coronal and Sagittal reconstruction series were provided. One or more dose reduction techniques were used (e.g., Automated exposure control, adjustment of the mA and/or kV according to patient size, use of iterative reconstruction technique. COMPARISON: CT brain 03/15/2024 FINDINGS: * ACUTE: No acute infarct or hemorrhage. No mass effect or herniation. * BRAIN PARENCHYMA: Signal intensities are within normal limits for age. * VENTRICLES/EXTRA-AXIAL SPACES: No hydrocephalus or extra-axial fluid collections. * EXTRACRANIAL STRUCTURES: Visualized osseous structures are normal. Soft tissues are normal. CT/Brain/Head without Contrast IMPRESSION: No acute intracranial abnormality. Reading Location: [facility]
[2024-06-27 16:29] LABS: Mucous, Urine 0 SEEN /hpf (<or=2+)
[2024-06-27 16:47] LABS: Color, Urine Yellow (Yellow); Glucose, Dipstick Normal (Normal); Ketone-Dipstick Negative (Negative); Leukocyte Esterase-Dipstick 500 /ul (Negative); Nitrite-Dipstick Negative (Negative); Occult Blood-Urine Negative /ul (Negative); Specific Gravity, Urine 1.015 (1.002-1.030); Urine Bilirubin Dipstick Negative (Negative); Urine Clarity Sl. Cloudy (Clear); Urine Urobilinogen Normal (Normal)
[2024-06-27 17:03] LABS: Absolute Lymphocyte Count 1.89 X10^3/uL (0.83-4.51); Absolute Neutrophil Count 8.2 X10^3/uL (2.0-7.7); Basophil# 0.06 X10^3/uL; Basophil% 0.5 % (0-1); Eosinophil# 0.41 X10^3/uL; Eosinophils% 3.7 % (0-5); Hematocrit 33.4 % (37-47); Hemoglobin 10.5 g/dL (12.0-15.0); Lymphocyte # 1.89 X10^3/ul (0.83-4.51); Lymphocyte % 16.8 % (19-41); Mean Corp Hgb Conc 31.4 g/dL (32-36); Mean Corpuscular Hgb 29.7 pg (27.0-32.0); Mean Corpuscular Volume 94.6 fL (81-99); Mean Platelet Vol. 10.5 fl (6.2-12.0); Monocyte# 0.59 X10^3/uL; Monocyte% 5.3 % (0-10); NRBC Flagged by Analyzer 0 % (0-5); Neutrophil % 73.1 % (47-70); Platelet Count 414 K/mm3 (150-450); RBC Distribution Width CV 16.5 % (11.6-14.6); RBC Distribution Width SD 55.7 fl (35.1-43.9); Red Blood Count 3.53 M/mm3 (4.2-5.4); White Blood Count 11.2 K/mm3 (4.4-11.0)
[2024-06-27 17:12] LABS: Anion Gap 13 (5-15); BUN 7 mg/dL (4-19); BUN/Creat Ratio 5.5 RATIO (10-20); Calcium,Total 9.5 mg/dL (7.6-11.0); Chloride 102 mmol/L (98-108); Creatinine, Serum 1.23 mg/dL (0.70-1.20); EST Glomerular Filtration Rate 53 (>60); Estimated Creatinine Clearance 71.39 ml/min (50-250); Glucose 110 mg/dL (70-99); Potassium 3.6 mmol/L (3.3-5.1); Sodium Level 141 mmol/L (133-145)
[2024-06-27 17:24] VITALS: BP 124/73; PULSE 70; RESP 18; O2SAT 97
[2024-06-27 17:36] LABS: White Blood Cells 10-25 SEEN /hpf (0-5)
[2024-06-27 17:37] LABS: Squamous Epithelial Cells - UA 10-25 SEEN /hpf (5-10)
[2024-06-27 17:38] LABS: Red Blood Cells-Urine 0-5 SEEN /hpf (0-5); Yeast-Urine RARE /hpf (None Seen)
[2024-06-27 17:39] LABS: Bacteria RARE /hpf (None Seen)
[2024-06-27] MEDS: 0.9% Normal Saline (1000mL) 1,000 ML 1000 ML IV (17:40)
[2024-06-27 17:45] LABS: Protein, Urine (Random) 16.3 mg/dL (0.0-12.0)
[2024-06-27 18:00] VITALS: BP 125/90; PULSE 69; RESP 20; O2SAT 96
== END 2024-06-27 18:31 | disposition home or self-care (01) ==
PROVIDERS: Emergency Provider Emergency Medicine; PCP Family Medicine; Referring Provider Emergency Medicine; Visit Provider Emergency Medicine
DX: R42 Dizziness and giddiness (principal); J44.9 Chronic obstructive pulmonary disease, unspecified; E66.01 Morbid (severe) obesity due to excess calories; Z68.42 Body mass index [BMI] 45.0-49.9, adult; E11.22 Type 2 diabetes mellitus with diabetic chronic kidney disease; Z79.4 Long term (current) use of insulin; S93.401A Sprain of unspecified ligament of right ankle, initial encounter; W18.39XA Other fall on same level, initial encounter; N18.9 Chronic kidney disease, unspecified; I12.9 Hypertensive chronic kidney disease with stage 1 through stage 4 chronic kidney disease, or unspecified chronic kidney disease; E78.00 Pure hypercholesterolemia, unspecified; Z79.899 Other long term (current) drug therapy
CPT/HCPCS: 70450; 73610; 80048; 81001; 84156; 85025; 96360; 99283; A4216

== ENCOUNTER → 2024-07-03 | Outpatient (CLI) | payer MEDICARE, MEDICAID, SELFPAY ==
--- NOTE | 2024-07-03 17:02 | RAD_ITS ---
PROCEDURE: TIBIA FIBULA 2 VIEWS 07/03/2024 REASON FOR EXAM: LEG INJURY TECHNIQUE: 2 view(s) of the right tibia and fibula. COMPARISON: None FINDINGS: No acute fracture or dislocation. Joint spaces are maintained. Ankle mortise is within normal limits. No mild soft tissue swelling about the lateral malleolus. Small plantar calcaneal enthesophyte. RAD/Tibia & Fibula 2 Views IMPRESSION: No acute fracture or dislocation. Mild lateral malleolar soft tissue swelling. Reading Location: [facility]
[2024-07-03 17:52] LABS: Absolute Lymphocyte Count 2.37 X10^3/uL (0.83-4.51); Basophil# 0.09 X10^3/uL; Basophil% 0.6 % (0-1); Eosinophil# 0.65 X10^3/uL; Eosinophils% 4.5 % (0-5); Hematocrit 33.3 % (37-47); Hemoglobin 10.7 g/dL (12.0-15.0); Lymphocyte # 2.37 X10^3/ul (0.83-4.51); Lymphocyte % 16.6 % (19-41); Mean Corp Hgb Conc 32.1 g/dL (32-36); Mean Corpuscular Hgb 30.2 pg (27.0-32.0); Mean Corpuscular Volume 94.1 fL (81-99); Mean Platelet Vol. 10.4 fl (6.2-12.0); Monocyte# 1.06 X10^3/uL; Monocyte% 7.4 % (0-10); NRBC Flagged by Analyzer 0 % (0-5); Neutrophil # 9.96 X10^3/uL (2.7-7.7); Neutrophil % 69.7 % (47-70); Platelet Count 419 K/mm3 (150-450); RBC Distribution Width CV 16.8 % (11.6-14.6); RBC Distribution Width SD 57.1 fl (35.1-43.9); Red Blood Count 3.54 M/mm3 (4.2-5.4); White Blood Count 14.3 K/mm3 (4.4-11.0)
[2024-07-03 19:19] LABS: Ferritin 24 ng/mL (22-378); Iron 41 ug/dL (50-170); Iron Binding Capacity,Total 309 ug/dL (250-450); Iron Binding Capacity,Unsat 268 ug/dL (228-428)
[2024-07-05 18:08] LABS: Erythropoietin 30.8 mIU/mL (2.6-18.5)
== END | disposition home or self-care (01) ==
PROVIDERS: PCP Family Medicine; Referring Provider Family Medicine; Visit Provider Family Medicine
DX: D64.9 Anemia, unspecified (principal); S89.91XA Unspecified injury of right lower leg, initial encounter; X58.XXXA Exposure to other specified factors, initial encounter
CPT/HCPCS: 36415; 73590; 82668; 82728; 83540; 83550; 85025

== ENCOUNTER 2024-07-29 19:39 | Emergency (ER) | payer MEDICARE, MEDICAID, SELFPAY ==
[2024-07-29 19:39] VITALS: BP 146/92; PULSE 79; RESP 18; TEMP 36.6; O2SAT 99
--- NOTE | 2024-07-29 19:58 | EDS_ITS ---
HPI History of Present Illness Chief Complaint: Eye Problem Informant: patient Onset/Context/Timing Location: Right Eye Onset: - (1 year or longer.) Context: Gradual Onset Timing: Continuous Current Severity: Mild Maximum Severity: Mild Associated Symptoms Associated Symptoms - Eyes: Pain and Redness History of injury: No Visual correction: None Narrative Narrative: 53-year-old female history of prior stroke, diabetes hypertension. He has a problem with the right eye for over a year. She has seen 3 different astro technician including here in [facility]. She said they do not have a specific diagnosis. She is legally blind in the right eye. She denies any prior surgery. She does not wear contacts or corrective lenses. States that she is just develop more pain. Denies any discharge. No visual change but said she can barely see light or shapes. That is no change or different. No worse. Prior similar symptoms: Yes Recent Illness/Hospitalization: No PFSH PFSH Medical History Kidney failure MARYANA (acute kidney injury) Fatigue MARYANA (acute kidney injury) Walker as ambulation aid Ambulates with cane Low iron History of renal disease High cholesterol DVT (deep venous thrombosis) PONV (postoperative nausea and vomiting) Stroke/cerebrovascular accident Sleep apnea [facility] follow-up encounter Scalp hematoma Pulmonary embolism Post-menopausal Thyroid disease Injury of head and neck Dietary restriction Difficulty swallowing BiPAP (biphasic positive airway pressure) dependence COPD (chronic obstructive pulmonary disease) Shortness of breath on exertion Leg cramps History of pain when walking History of edema History of echocardiogram History of stress test Syncope Abnormal glucose Noncompliance DAVY treated with BiPAP UTI (urinary tract infection) Vitamin D deficiency Restless leg syndrome Vitamin B12 deficiency Iron deficiency anemia History of chronic back pain Wears glasses Arthritis Non-smoker Hydronephrosis Depression Anemia Migraine headache Chronic kidney disease Diabetes mellitus Gout Celiac disease Hyperlipidemia GERD (gastroesophageal reflux disease) Dyspnea on exertion Chest pain Hypersomnia Cardiac murmur Microcytic anemia Hypertension Morbid obesity with BMI of 40.0-44.9, adult Asthma Hypothyroidism Anxiety Home Medications ?Medication ?Instructions ?Recorded ?Last Taken ?Type budesonide-formoterol HFA 160 2 puff inhalation BID CO PD 04/02/20 06/26/24 History mcg-4.5 mcg/actuation aerosol inhaler (Symbicort) naratriptan 2.5 mg tablet 2.5 mg PO BID PRN migraines 10/01/23 Unknown History fluticasone propionate 50 2 spray intranasal Q12H gm rgies 01/20/24 06/27/24 History mcg/actuation nasal spray,suspension levothyroxine 200 mcg tablet 200 mcg PO DAILY thyroid 01/20/24 06/27/24 History isosorbide mononitrate 30 mg 30 mg PO DAILY HEART #30 tabs 03/30/24 06/27/24 Rx tablet,extended release 24 hr valsartan 160 mg tablet 160 mg PO BID blood pressure #180 03/30/24 06/27/24 Rx tabs doxycycline hyclate 100 mg tablet 100 mg PO BID Cornea l ulcer 05/10/24 06/27/24 History erythromycin 5 mg/gram (0.5 %) eye 1 applic ophthalmic (eye) 4X/DAY 05/10/24 06/27/24 History ointment Corneal ulcer ascorbic acid (vitamin C) 1,000 mg 1 g PO DAILY #30 ta bs 05/11/24 06/27/24 Rx tablet (Vitamin C) carboxymethylcellulose sodium 0.5 2 drp RIGHT EYE Q1H PRN DRY EYES 05/11/24 06/27/24 Rx % eye drops (Refresh Tears) #0 mL carvedilol 6.25 mg tablet 6.25 mg PO BID #0 tabs 05/1106/27/24 Rx citalopram 20 mg tablet 20 mg PO DAILY #0 tabs 05/1106/27/24 Rx methenamine hippurate 1 gram tablet 1 g PO BID 30 days #60 tabs 05/11/24 06/27/24 Rx tramadol 50 mg tablet 50 mg PO TID PRN pain 3 days #9 05/11/24 06/27/24 Rx tabs atenolol 25 mg tablet 25 mg PO DAILY 06/27/2405/31 History atorvastatin 40 mg tablet 40 mg PO QHS 06/27/24 History ezetimibe 10 mg tablet (Zetia) 10 mg PO DAILY choleste rol 06/27/24 06/27/24 History fluoxetine 40 mg capsule 40 mg PO DAILY 06/27/2405/31 History furosemide 40 mg tablet 40 mg PO DAILY 06/27/2405/31 History gabapentin 300 mg capsule 300 mg PO TID pain 06/27/24 06/27/24 History galcanezumab-gnlm 120 mg/mL 120 mg subcut Q30D 5 Unknown History subcutaneous pen injector (Emgality Pen) insulin lispro 100 unit/mL 1 sliding scale dose subcut ACHS 06/27/24 06/27/24 History subcutaneous pen (Humalog KwikPen (U-100) Insulin) levothyroxine 25 mcg tablet 25 mcg PO DAILY 06/27/24 0 06/27/24 History metoclopramide HCl 10 mg tablet 10 mg PO TID 06/27/24 06/27/24 History nystatin 100,000 unit/gram topical 1 applic topical BI D 06/27/24 06/27/24 History cream ondansetron 4 mg disintegrating 4 mg PO Q8H PRN Nausea 06/27/24 Unknown History tablet rimegepant 75 mg disintegrating 75 mg PO DAILY PRN jeny víctor 06/27/24 Unknown History tablet (Nurtec ODT) trazodone 150 mg tablet 150 mg PO QHS 07/16/24 Unkno wn History Allergy/AdvReac Type Severity Reaction Status Date / Time hydrochlorothiazide AdvReac Intermediate Contributes Verified 07/29/24 19:41 to gout naproxen (From Naprosyn) AdvReac Intermediate Nausea Verified 07/29/24 19:41 aspirin AdvReac Nausea Verified 07/29/24 19:41 Penicillins AdvReac Other Verified 07/29/24 19:41 Family History Father , Age 72 Hypertension Mother CAD (coronary artery disease) Myocardial infarction, Onset Age: 55 Hypertension Sister CAD (coronary artery disease) Brother Cancer Surgical History History of cardiac catheterization History of History of carpal tunnel surgery of right wrist History of carpal tunnel surgery of left wrist Hx of cystoscopy History of left heart catheterization (11/11/20) history of uterine ablation Social History household members: spouse housing: apartment Smoking Status: Never smoker alcohol intake: never substance use type: does not use caffeine: No ROS ROS ED ROS Narrative Right eye pain. Denies other complaints. No recent illness. No fever. Constitutional Constitutional ED: Denies chills or fever(s) Eyes Eyes: Reports other Details: Legally blind right eye. ; Denies blurry vision, change in vision or diplopia ENT ENT ED: Denies ear pain Cardiovascular Cardiovascular: Denies chest pain Respiratory/Chest Respiratory/Chest: Denies cough Gastrointestinal Gastrointestinal: Denies abdominal pain Genitourinary Genitourinary ED: Denies dysuria Musculoskeletal Musculoskeletal: Denies arthralgias Integumentary Denies abscess Neurologic Neurologic: Denies headache(s) Psychiatric Psychiatric: Denies anxiety Endocrine Endocrinology: Denies polydipsia Hematologic/Lymphatic Hematologic/Lymphatic: Denies easy bleeding Allergic/Immunologic Allergic/Immunologic ED: Denies mouth swelling, tongue swelling or urticaria EXAM Physical Exam Narrative Exam Narrative: 53-year-old female sitting upright in bed. Vital signs are stable afebrile. No distress. H EENT exam left pupil is round reactive light. Extra motions are in tact. She is legally blind in the right eye. She has a cloudy cornea. There is redness and mild swelling to both the upper and lower lid of the right eye. There is no discharge. No drainage. There is no orbital or periorbital cellulitis. No proptosis. No preauricular lymphadenopathy. Neck nontender. No lymphadenopathy. Lungs clear. Heart regular rhythm rate about 80 no murmur. Chest wall and ribs nontender. Abdomen soft nontender. Obese. Moving all 4 extremities. Nontender no deformity. Const Vital Signs: 07/29/24 19:39 Temperature 98 F Temperature Source Oral Pulse Rate 79 Respiratory Rate 18 Blood Pressure 146/92 H Blood Pressure Mean 110 Pulse Ox 99 Oxygen Delivery Method Room Air Positive well nourished, well developed and obese; Negative for cachectic, contractures or unkempt General Appearance ED: well developed and NAD; Negative for unkempt, cachectic or contractures Nutritional Appearance: obese; Negative for cachectic HEENT atraumatic; Negative for trauma or tenderness Eyes Eyes Narrative: Right eye is injected. Cloudy. Red. No discharge. No drainage. Upper and lower lids are mildly swollen. Legally blind in the right eye. Pupil nonreactive. Left eye pupil reactive and extraocular motions are intact. Neck no lymphadenopathy, supple and no JVD Resp normal respiratory effort, no retractions, no use of accessory muscles and clear to auscultation bilaterally Cardio regular rate, regular rhythm, S1 normal heart sound, S2 normal heart sound and no murmurs GI non-tender, non-distended and no masses Back/Spine no CVA tenderness Extremity normal to inspection General Extremety ED: Negative for edema or other findings General Extremity: Negative for edema or other findings Neuro oriented x3 and moves all extremities Neuro Narrative: Legally blind right eye. Sensorium / Orientation: alert, oriented to person, oriented to place and oriented to time Motor Exam: strength 5/5 throughout Psych Appearance: Negative for unkempt Mood & Affect: Negative for anxious or tearful Skin no wounds Lesions: no lesions Rashes: no rashes MDM MDM MDM Narrative Medical decision making narrative: 53-year-old female history of diabetes, stroke, blind in her right eye. She has had eye pain for a year. Has seen 3 different astro technician including in [facility] and [place] without specific diagnosis. Complaining of eye pain. It is red. The lids are mildly swollen. There is no discharge. Tetracaine to be applied. I will do a slit-lamp examination with fluorescein. I do not think she needs any lab or imaging. Placed multiple tetracaine drops in her right eye. Then fluorescein stain. There was swelling of the upper and lower lid. She has a cloudy cornea. She is blind in that eye. The pupils nonreactive. Under slit-lamp examination the eye there is no foreign body. No ulcer. There is a moderate size corneal abrasion on the right lateral edge of the pupil about 9:00 on the face of a clock. I discussed that with the patient. Based duration ophthalmic ointment will be placed in her eye. She will use this twice a day. She will be given the fluorescein drops to use for discomfort. She will follow-up with her astro technician this week. History & Record Review Discussion w/independent historian: Patient Additional record(s) reviewed:: Prior inpatient record, Prior outpatient record, Prior ED visit and Prior labs Discharge Plan Triage Chief Complaint: Eye Problem ED Provider: Pipo Merritt Dx/Rx/DC Orders Clinical Impression: Corneal abrasion, Blind one eye, History of diabetes mellitus Instructions: ED Corneal Abrasion Prescriptions: No Action budesonide-formoterol [Symbicort] 160-4.5 mcg/actuation HFA aerosol inhaler 2 puff INHALATION BID trazodone 150 mg tablet 150 mg PO QHS naratriptan 2.5 mg tablet 2.5 mg PO BID PRN (Reason: migraines) Rx Instructions: can repeat dose, two hours after first dose taken. do not exceed more than two doses in 24 hours. fluticasone propionate 50 mcg/actuation spray,suspension 2 spray INTRANASAL Q12H Patient Comments: [NO ORIGINAL SIG] levothyroxine 200 mcg tablet 200 mcg PO DAILY Patient Comments: PT STATES SHE TAKES BOTH 200MCG AND 25 MCG. doxycycline hyclate 100 mg tablet 100 mg PO BID Patient Comments: START DATE- 06/22/24 erythromycin 5 mg/gram (0.5 %) ointment 1 applic ophthalmic (eye) 4X/DAY carboxymethylcellulose sodium [Refresh Tears] 0.5 % Drops 2 drp RIGHT EYE Q1H PRN (Reason: DRY EYES) Qty: 0 0RF methenamine hippurate 1 gram tablet 1 g PO BID 30 Days Qty: 60 0RF ascorbic acid (vitamin C) [Vitamin C] 1,000 mg tablet 1 g PO DAILY Qty: 30 0RF citalopram 20 mg Tablet 20 mg PO DAILY Qty: 0 0RF tramadol 50 mg tablet 50 mg PO TID PRN (Reason: pain) 3 Days Qty: 9 0RF carvedilol 6.25 mg Tablet 6.25 mg PO BID Qty: 0 0RF atenolol 25 mg tablet 25 mg PO DAILY fluoxetine 40 mg capsule 40 mg PO DAILY furosemide 40 mg tablet 40 mg PO DAILY atorvastatin 40 mg tablet 40 mg PO QHS levothyroxine 25 mcg tablet 25 mcg PO DAILY Patient Comments: PT STATES SHE TAKES BOTH 200MCG AND 25 MCG. nystatin 100,000 unit/gram cream 1 applic topical BID metoclopramide HCl 10 mg tablet 10 mg PO TID Emgality Pen 120 mg/mL pen injector 120 mg SUBCUT Q30D Patient Comments: TAKES TOWARDS THE END OF THE MONTH Nurtec ODT 75 mg tablet,disintegrating 75 mg PO DAILY PRN (Reason: migraine) gabapentin 300 mg capsule 300 mg PO TID ondansetron 4 mg tablet,disintegrating 4 mg PO Q8H PRN (Reason: Nausea) insulin lispro [Humalog KwikPen Insulin] 100 unit/mL Insulin Pen 1 sliding scale dose subcut [facility] Protocol: 2. Sliding Scale Insulin Low-Med Dosing Condition: 150-209 mg/dl = 1 unit Condition: 210-269 mg/dl = 2 units Condition: 270-329 mg/dl = 3 units Condition: 330-389 mg/dl = 4 units Condition: 390-449 mg/dl = 5 units Condition: Greater than 449 call physician Protocol Text: Suggested for: - Patients on Total Daily Insulin Dose of 28-36 units - Average body habitus patients LOW MEDIUM DOSING ALGORITHM ezetimibe [Zetia] 10 mg tablet 10 mg PO DAILY valsartan 160 mg tablet 160 mg PO BID Qty: 180 3RF isosorbide mononitrate 30 mg tablet extended release 24 hr 30 mg PO DAILY Qty: 30 11RF Primary Care Provider: Nasreen Sutton Referrals: Nasreen Sutton MD [Primary Care Provider] - Barrett Michael MD [Med Staff - Active Staff] - As soon as possible Activity Restrictions/Additional Instructions: You have a corneal abrasion or scratch on your right eye at about 9:00. Use the eye antibiotic ointment twice a day. Till gone. Use the eyedrops to help with pain. You can use 2 drops every 2-4 hours as needed. But you have to stop using them after Tuesday night. Because long-term they can retard healing. Follow-up with one of your eye doctors to be reevaluated and to ensure this corneal abrasion in your eye is improving. You need to see someone in the next several days. Cool compresses to your eye. Print Language: Greek Disposition Disposition: Home, Self Care
[2024-07-29] MEDS: Fluorescein 1 MG STRIP 1 STRIP RIGHT EYE (20:18)
[2024-07-29] MEDS: Tetracaine 0.5% Ophthalmic Bottle 5 DRP RIGHT EYE (20:19)
== END 2024-07-29 22:18 | disposition home or self-care (01) ==
PROVIDERS: Emergency Provider Emergency Medicine; PCP Family Medicine; Visit Provider Emergency Medicine
DX: S05.01XA Injury of conjunctiva and corneal abrasion without foreign body, right eye, initial encounter (principal); J44.9 Chronic obstructive pulmonary disease, unspecified; E66.01 Morbid (severe) obesity due to excess calories; Z68.41 Body mass index [BMI] 40.0-44.9, adult; E11.22 Type 2 diabetes mellitus with diabetic chronic kidney disease; Z79.4 Long term (current) use of insulin; H54.8 Legal blindness, as defined in USA; X58.XXXA Exposure to other specified factors, initial encounter; I12.9 Hypertensive chronic kidney disease with stage 1 through stage 4 chronic kidney disease, or unspecified chronic kidney disease; N18.9 Chronic kidney disease, unspecified; Z79.51 Long term (current) use of inhaled steroids; Z79.899 Other long term (current) drug therapy
CPT/HCPCS: 99283

== ENCOUNTER 2024-08-04 13:28 | Inpatient (IN) | payer MEDICARE, MEDICAID, SELFPAY ==
[2024-08-04] VITALS (16 sets, daily range): BP systolic 97–146; BP diastolic 67–108; PULSE 49–61; RESP 12–19; TEMP 36.4–37.1; O2SAT 94–100; BMI 48.6; BMI 48.9
--- NOTE | 2024-08-04 13:37 | EKG12_ITS ---
Test Reason : Blood Pressure : */* mmHG Vent. Rate : 53 BPM Atrial Rate : 53 BPM P-R Int : 150 ms QRS Dur : 88 ms QT Int : 442 ms P-R-T Axes : 42 -19 221 degrees QTcB Int : 414 ms Sinus bradycardia Possible Inferior infarct , age undetermined Abnormal ECG Confirmed by CHAR GONZALEZ, RADHA ([id number]), film editor supervisor ZANDER MAYER ([id number]) on 08/06/2024 6:15:42 AM Referred By: Jcarlos Anthony Confirmed By: RADHA PARDO MD
--- NOTE | 2024-08-04 13:37 | CT_ITS ---
PROCEDURE: BRAIN/HEAD WITHOUT CONTRAST 08/04/2024 REASON FOR EXAM: FREQUENT FALLS, BLUNT HEAD TRAUMA, altered level of consciousness Initial encounter TECHNIQUE: Head CT without intravenous contrast. Coronal and Sagittal reconstruction series were provided. One or more dose reduction techniques were used (e.g., Automated exposure control, adjustment of the mA and/or kV according to patient size, use of iterative reconstruction technique. RADIATION DOSE SUMMARY: CTDlvol: 44.99 mGy DLP: 829.85 mGycm COMPARISON: CT brain 06/27/2024 FINDINGS: Brain: No intra-axial or extra-axial hemorrhage. Mass, mass effect or midline shift. CSF Spaces: Normal Sinuses/Mastoids: Clear Bones: No fracture or aggressive process CT/Brain/Head without Contrast IMPRESSION: No acute process identified [facility]
[2024-08-04 14:07] LABS: Allen Test Positive; Base Excess 3 mmol/L (-2 to +2); Bicarbonate 28.2 mmol/L (22-26); Blood Gas Specimen Type ART; Mode Not entered; O2 Delivery Device Room Air; PO2 57 mmHG (75-100); SITE L Radial; SO2 87 % (95-99); Total Carbon Dioxide 30 mmol/L; pCO2 51.8 mmHg (35-45); pH 7.34 (7.35-7.45)
--- NOTE | 2024-08-04 14:19 | EX.ED.DYSGE1 ---
HPI History of Present Illness Chief Complaint: General Illness Detail of Chief Complaint: Patient complains of falling asleep easily fatigued falling. Informant: patient Onset/Context/Timing Onset: Today Context: Gradual Onset Timing: Continuous Quality: Fatigue, sleepiness fall times twice Location: Generalized Current Severity: Moderate Maximum Severity: Moderate Worsened by: Patient was asleep on her left side when I entered the room. Patient awoke Relieved by: Nothing Associated Symptoms Associated Symptoms: Falls and head trauma Narrative Narrative: Patient is a 54-year-old woman with a BMI of 48.6. She has history of floppy eye syndrome, obstructive sleep apnea, hypothyroidism, essential hypertension, coronary disease, diastolic dysfunction, chronic malaise and fatigue who presents because she is falling asleep easily over the past 24 hours. She is fallen twice because of falling asleep. She states she hit her head. She does not remember if she was dazed or knocked out. She denies double vision blurred vision loss of vision. She denies ringing or ears or decreased hearing. Denies slurred speech or difficulty swallowing. She denies paresthesia, anesthesia or motor weakness. She denies chest pain. She denies shortness of breath. Patient reports compliance with her CPAP machine. Prior similar symptoms: Yes Recent Illness/Hospitalization: No PFSH [facility] Medical History Kidney failure MARYANA (acute kidney injury) Fatigue MARYANA (acute kidney injury) Walker as ambulation aid Ambulates with cane Low iron History of renal disease High cholesterol DVT (deep venous thrombosis) PONV (postoperative nausea and vomiting) Stroke/cerebrovascular accident Sleep apnea Fall Cardiology follow-up encounter Scalp hematoma Pulmonary embolism Post-menopausal Thyroid disease Injury of head and neck Dietary restriction Difficulty swallowing BiPAP (biphasic positive airway pressure) dependence COPD (chronic obstructive pulmonary disease) Shortness of breath on exertion Leg cramps History of pain when walking History of edema History of echocardiogram History of stress test Syncope Abnormal glucose Noncompliance DAVY treated with BiPAP UTI (urinary tract infection) Vitamin D deficiency Restless leg syndrome Vitamin B12 deficiency Iron deficiency anemia History of chronic back pain Wears glasses Arthritis Non-smoker Hydronephrosis Depression Anemia Migraine headache Chronic kidney disease Diabetes mellitus Gout Celiac disease Hyperlipidemia GERD (gastroesophageal reflux disease) Dyspnea on exertion Chest pain Hypersomnia Cardiac murmur Microcytic anemia Hypertension Morbid obesity with BMI of 40.0-44.9, adult Asthma Hypothyroidism Anxiety Home Medications ?Medication ?Instructions ?Recorded ?Last Taken ?Type budesonide-formoterol HFA 160 2 puff inhalation BID COPD 04/02/20 06/26/24 History mcg-4.5 mcg/actuation aerosol inhaler (Symbicort) naratriptan 2.5 mg tablet 2.5 mg PO BID PRN migraines 10/01/23 Unknown History fluticasone propionate 50 2 spray intranasal Q12H allergies 01/20/24 06/27/24 History mcg/actuation nasal spray,suspension levothyroxine 200 mcg tablet 200 mcg PO DAILY thyroid 01/20/24 06/27/24 History isosorbide mononitrate 30 mg 30 mg PO DAILY HEART #30 tabs 03/30/24 06/27/24 Rx tablet,extended release 24 hr valsartan 160 mg tablet 160 mg PO BID blood pressure #180 03/30/24 06/27/24 Rx tabs doxycycline hyclate 100 mg tablet 100 mg PO BID Corneal ulcer 05/10/24 06/27/24 History erythromycin 5 mg/gram (0.5 %) eye 1 applic ophthalmic (eye) 4X/DAY 05/10/24 06/27/24 History ointment Corneal ulcer ascorbic acid (vitamin C) 1,000 mg 1 g PO DAILY #30 tabs 05/11/24 06/27/24 Rx tablet (Vitamin C) carboxymethylcellulose sodium 0.5 2 drp RIGHT EYE Q1H PRN DRY EYES 05/11/24 06/27/24 Rx % eye drops (Refresh Tears) #0 mL carvedilol 6.25 mg tablet 6.25 mg PO BID #0 tabs 05/11/24 06/27/24 Rx citalopram 20 mg tablet 20 mg PO DAILY #0 tabs 05/11/24 06/27/24 Rx methenamine hippurate 1 gram tablet 1 g PO BID 30 days #60 tabs 05/11/24 06/27/24 Rx tramadol 50 mg tablet 50 mg PO TID PRN pain 3 days #9 05/11/24 06/27/24 Rx tabs atenolol 25 mg tablet 25 mg PO DAILY 06/27/24 06/27/24 History atorvastatin 40 mg tablet 40 mg PO QHS 06/27/24 06/26/24 History ezetimibe 10 mg tablet (Zetia) 10 mg PO DAILY cholesterol 06/27/24 06/27/24 History fluoxetine 40 mg capsule 40 mg PO DAILY 06/27/24 06/27/24 History furosemide 40 mg tablet 40 mg PO DAILY 06/27/24 06/27/24 History gabapentin 300 mg capsule 300 mg PO TID pain 06/27/24 06/27/24 History galcanezumab-gnlm 120 mg/mL 120 mg subcut Q30D 06/27/24 Unknown History subcutaneous pen injector (Emgality Pen) insulin lispro 100 unit/mL 1 sliding scale dose subcut ACHS 06/27/24 06/27/24 History subcutaneous pen (Humalog KwikPen (U-100) Insulin) levothyroxine 25 mcg tablet 25 mcg PO DAILY 06/27/24 06/27/24 History metoclopramide HCl 10 mg tablet 10 mg PO TID 06/27/24 06/27/24 History nystatin 100,000 unit/gram topical 1 applic topical BID 06/27/24 06/27/24 History cream ondansetron 4 mg disintegrating 4 mg PO Q8H PRN Nausea 06/27/24 Unknown History tablet rimegepant 75 mg disintegrating 75 mg PO DAILY PRN migraine 06/27/24 Unknown History tablet (Nurtec ODT) trazodone 150 mg tablet 150 mg PO QHS 07/16/24 Unknown History Allergy/AdvReac Type Severity Reaction Status Date / Time hydrochlorothiazide AdvReac Intermediate Contributes Verified 08/04/24 13:29 to gout naproxen (From Naprosyn) AdvReac Intermediate Nausea Verified 08/04/24 13:29 aspirin AdvReac Nausea Verified 08/04/24 13:29 Penicillins AdvReac Other Verified 08/04/24 13:29 Family History Father , Age 72 Hypertension Mother CAD (coronary artery disease) Myocardial infarction, Onset Age: 55 Hypertension Sister CAD (coronary artery disease) Brother Cancer Surgical History History of cardiac catheterization History of History of carpal tunnel surgery of right wrist History of carpal tunnel surgery of left wrist Hx of cystoscopy History of left heart catheterization (11/11/20) history of uterine ablation Social History household members: spouse housing: apartment Smoking Status: Never smoker alcohol intake: never substance use type: does not use caffeine: No ROS ROS ED Constitutional Constitutional ED: Denies chills, fever(s), subjective or sweats Eyes Eyes: Reports other Details: Patient has floppy eye syndrome. ; Denies blurry vision or change in vision ENT ENT ED: Denies ear pain, rhinorrhea or sore throat Cardiovascular Cardiovascular: Denies chest pain, orthopnea, palpitations or racing heartbeat Respiratory/Chest Respiratory/Chest: Denies cough, dyspnea, dyspnea on exertion or orthopnea Gastrointestinal Gastrointestinal: Denies abdominal pain, nausea or vomiting Musculoskeletal Musculoskeletal: Denies arthralgias or myalgias Integumentary Denies Abrasions or rash Neurologic Neurologic: Reports headache(s) and weakness; Denies paresthesias Psychiatric Psychiatric: Reports depression Hematologic/Lymphatic Hematologic/Lymphatic: Reports systems reviewed and no addt'l complaints, except as documented EXAM Physical Exam Const Vital Signs: 08/04/24 13:30 08/04/24 13:33 08/04/24 15:28 Temperature 98.7 F Temperature Source Oral Pulse Rate 61 49 L Respiratory Rate 18 Respiratory Effort Normal Non-Labored Respiratory Pattern Normal Blood Pressure 146/78 H 120/83 H Blood Pressure Mean 100 95 Pulse Ox 97 99 Oxygen Delivery Method Room Air Positive well nourished and well developed Constitutional Narrative: Patient is somnolent. Her BMI is 48.6. She appears in no distress. General Appearance ED: well developed and NAD; Negative for cyanotic, diaphoretic or pallor HEENT Reports moist mucous membranes HEENT Narrative: Head reveals no obvious trauma. There is no clinical signs of basilar skull fracture. No palpable pressure or hematoma. There is no septal deviation hematoma. There is no evidence of dental trauma. Eyes PERRL and EOMs intact bilaterally Eyes Narrative: There is no subconjunctival hemorrhage. Patient does have floppy eyes. Neck no lymphadenopathy, supple and no JVD Chest Wall inspection of chest normal and palpation of chest normal Resp normal respiratory effort and clear to auscultation bilaterally Cardio regular rate, regular rhythm, S1 normal heart sound, S2 normal heart sound and no murmurs GI normal to inspection, nondistended, normoactive bowel sounds, non-tender, non-distended and no masses; Negative for hepatosplenomegaly Back/Spine no CVA tenderness Extremity Extremity Narrative: Mild edema of her feet. Neuro oriented x3, No CN's II-XII intact bilaterally and No no sensory deficits noted Neuro Narrative: Patient awakes to tactile and verbal stimulus. There is no clonus Babinski noted right or left. Sensorium / Orientation: Negative for alert Motor Exam: strength 5/5 throughout Psych Mood & Affect: depressed Skin no rashes or lesions noted, no wounds and skin turgor normal Skin Narrative: Patient has multiple tattoos. General Skin Exam: Negative for jaundice or pallor MDM MDM MDM Narrative Medical decision making narrative: With patient being sleepy history obstructive sleep apnea concerned this may represent hypercapnia. Based on review of prior records this could be due to her hypothyroidism since she has severe hypothyroidism with poor control. With her having 2 falls hitting her head need to obtain CT to rule out intracranial bleed. History & Record Review Additional record(s) reviewed:: Prior outpatient record (Patient's most recent echo reveals an EF of 60%. The RV function was not determined because of difficulty per reader.), Prior ED visit and Prior labs Lab Data Attestation: I reviewed the patient's lab results. Lab results narrative: CBC is unremarkable. Basic metabolic panel is marked for an elevated creatinine from baseline. Labs: Laboratory Results - last 24 hr 08/04/24 08/04/24 14:14 14:37 WBC 6.9 RBC 4.03 L Hgb 12.2 Hct 39.4 MCV 97.8 MCH 30.3 MCHC 31.0 L RDW Std Deviation 68.4 H RDW Coeff of Alfredo 19.0 H Plt Count 362 MPV 10.6 Sodium 139 Potassium 3.8 Chloride 102 Carbon Dioxide 24.8 Anion Gap 13 BUN 10 Creatinine 1.35 H Estim Creat Clear Calc 63.33 Est GFR (MDRD) Non-Af 47 L BUN/Creatinine Ratio 7.2 L Glucose 113 H Calcium 9.6 TSH 130.000 H POC Glucose 110 H Patient had TSH levels in the 80s. TSH is 130. 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 She was treated with IV levothyroxine. Hospitalist ordered free T4 and cortisol level. Will not treat with steroids unless cortisol is abnormal since she is a type I diabetic. ABG Data Attestation: I personally reviewed and interpreted this ABG as follows: Interpretation: ABG reveals a mild acidosis with evidence of chronic CO2 retubed retention and hypoxemia. ABG results: ABG 08/04/24 14:03 Specimen Type ART Sample Site L Radial pH 7.34 L Bicarbonate Actual 28.2 H Total CO2 30 Base Excess 3 H O2 Saturation 87 L O2 % 21.0 ABG pCO2 51.8 H ABG pO2 57 L Justin Test Positive O2 Delivery Device Room Air Vent Mode Not entered Radiography Diagnostic Testing: Clinical Impression(s) from Imaging Studies Brain CT 08/04/24 13:37 IMPRESSION: No acute process identified Reading Location: [facility] CT of the head without contrast reviewed by me at 1451 is negative for intracranial bleed i.e. epidural hematoma, subdural hematoma, traumatic subarachnoid hemorrhage or intraparenchymal bleed. There is no months of fluid in the sinuses i.e. blood nor is or evidence of fracture. Awaiting formal read by radiologist. EKG Initial EKG: Attestation: I personally reviewed and interpreted this EKG as follows: Interpretation: Sinus Bradycardia (Rate is 53. [place] interval 250 ms. Cures duration 86 ms. QT duration 442 ms. [place] is normal. There is an ossific changes noted inferiorly that is due to artifact.) Management Discussion w/another healthcare provider: Hospitalist (Case discussed with hospitalist. She requested a BNP. Pending results of TSH and BNP will determine whether she will be a floor admit versus progressive care unit admit.) Treatment and Re-Evaluation :: Patient was informed of her results. She had to be awakened. She is presently on oxygen. She does not have oxygen at home. Comments:: Patient is a gradient is abnormal. For this reason patient was placed on BiPAP. Case was cussed with hospitalist. Critical Care Time Critical Care Time: Yes Critical care time (excluding procedures): 30-74 minutes (39), Including time spent: (History, physical, documentation, independent rotation laboratory results and images, treatment for myxedema coma and respiratory failure), Discussing w/Consultants, Arranging Admission or Transfer and Performing Direct Patient Care at Bedside Discharge Plan Dx/Rx/DC Orders Clinical Impression: Myxedema coma, Pickwickian syndrome, History of diabetes mellitus, Falls frequently, Hypersomnolence, Contusion of head, Floppy eyelid syndrome of both eyes, Obstructive sleep apnea syndrome in adult, Adult BMI 45.0-49.9 kg/sq m, History of COPD, Elevated blood pressure reading with diagnosis of hypertension, Sinus bradycardia on ECG, Elevated serum creatinine Disposition Disposition: Acute Care Hospital [facility]
[2024-08-04 14:33] LABS: Bedside Glucose 110 mg/dL (74-106)
[2024-08-04 14:50] LABS: Hematocrit 39.4 % (37-47); Hemoglobin 12.2 g/dL (12.0-15.0); Mean Corpuscular Hgb 30.3 pg (27.0-32.0); Mean Corpuscular Volume 97.8 fL (81-99); Mean Platelet Vol. 10.6 fl (6.2-12.0); POSITIVE MORPHOLOGY YES; Platelet Count 362 K/mm3 (150-450); RBC Distribution Width SD 68.4 fl (35.1-43.9); Red Blood Count 4.03 M/mm3 (4.2-5.4); White Blood Count 6.9 K/mm3 (4.4-11.0)
[2024-08-04 15:21] LABS: Scan Indicated on CBC? Y/N YES- FLAGS NOTED
[2024-08-04 15:22] LABS: Anion Gap 13 (5-15); BUN 10 mg/dL (4-19); BUN/Creat Ratio 7.2 RATIO (10-20); Calcium,Total 9.6 mg/dL (7.6-11.0); Carbon Dioxide 24.8 mmol/L (21.0-32.0); Chloride 102 mmol/L (98-108); Creatinine, Serum 1.35 mg/dL (0.70-1.20); EST Glomerular Filtration Rate 47 (>60); Estimated Creatinine Clearance 63.33 ml/min (50-250); Glucose 113 mg/dL (70-99); Potassium 3.8 mmol/L (3.3-5.1); Sodium Level 139 mmol/L (133-145)
--- NOTE | 2024-08-04 16:02 | PCM.HP.STD ---
HPI - General General Date of Admission: 08/04/24 Date of Service: 08/04/24 Chief Complaint: Falls/altered mental status HPI Narrative COURTNEY CARMEN is a 54 F who presented to the emergency department at [facility] on 08/04/2024 with fatigue, falls, and altered mental status. She has a history of noncompliance documented throughout her chart and has multiple medical problems. Patient reported that she had been falling asleep quite easily over the last 24 hours and had fallen asleep twice because she was falling asleep. She denied on presentation hitting her head or any neurological symptoms associated. She did not complain of any shortness of breath or respiratory symptoms. Her biggest complaint when I saw her was just marked fatigue and falls over the last 24 hours essentially. She is quite sleepy at this on my evaluation but does awaken and answer questions appropriately but drifts back off to sleep during conversation. Vital signs on presentation showed temperature 97.7, heart rate 61 but she had was as well as the 40s on telemetry, respiratory rate was 18, blood pressure was 146/78 and pulse ox was 97% on room air. CBC was unremarkable. Chemistry panel shows elevated serum creatinine 1.35 with a previous baseline of 0.8-1.0 in May of this year. All other electrolytes were unremarkable. proBNP was 47. ABG was performed and showed pH of 7.34, PCO2 is 51.8 and pO2 is 57 on room air. Patient is not oxygen dependent at baseline. With her falls a CT of her brain was performed and showed no acute abnormalities. Given her somnolence and history of noncompliance a TSH was performed and was markedly elevated at 130. A stat cortisol and free T4 were ordered. She was placed on BiPAP and given IV levothyroxine at 200 mcg x 1 dose in the emergency department. If the cortisol is low we will also give her steroids. Given diagnosis of myxedema coma she will be admitted to the intensive care unit for now. [facility] Medical History Kidney failure MARYANA (acute kidney injury) Fatigue MARYANA (acute kidney injury) Walker as ambulation aid Ambulates with cane Low iron History of renal disease High cholesterol DVT (deep venous thrombosis) PONV (postoperative nausea and vomiting) Stroke/cerebrovascular accident Sleep apnea Fall Cardiology follow-up encounter Scalp hematoma Pulmonary embolism Post-menopausal Thyroid disease Injury of head and neck Dietary restriction Difficulty swallowing BiPAP (biphasic positive airway pressure) dependence COPD (chronic obstructive pulmonary disease) Shortness of breath on exertion Leg cramps History of pain when walking History of edema History of echocardiogram History of stress test Syncope Abnormal glucose Noncompliance DAVY treated with BiPAP UTI (urinary tract infection) Vitamin D deficiency Restless leg syndrome Vitamin B12 deficiency Iron deficiency anemia History of chronic back pain Wears glasses Arthritis Non-smoker Hydronephrosis Depression Anemia Migraine headache Chronic kidney disease Diabetes mellitus Gout Celiac disease Hyperlipidemia GERD (gastroesophageal reflux disease) Dyspnea on exertion Chest pain Hypersomnia Cardiac murmur Microcytic anemia Hypertension Morbid obesity with BMI of 40.0-44.9, adult Asthma Hypothyroidism Anxiety Home Medications ?Medication ?Instructions ?Recorded ?Last Taken ?Type budesonide-formoterol HFA 160 2 puff inhalation BID COPD 04/02/20 06/26/24 History mcg-4.5 mcg/actuation aerosol inhaler (Symbicort) naratriptan 2.5 mg tablet 2.5 mg PO BID PRN migraines 10/01/23 Unknown History fluticasone propionate 50 2 spray intranasal Q12H allergies 01/20/24 06/27/24 History mcg/actuation nasal spray,suspension levothyroxine 200 mcg tablet 200 mcg PO DAILY thyroid 01/20/24 06/27/24 History isosorbide mononitrate 30 mg 30 mg PO DAILY HEART #30 tabs 03/30/24 06/27/24 Rx tablet,extended release 24 hr valsartan 160 mg tablet 160 mg PO BID blood pressure #180 03/30/24 06/27/24 Rx tabs erythromycin 5 mg/gram (0.5 %) eye 1 applic ophthalmic (eye) 4X/DAY 05/10/24 06/27/24 History ointment Corneal ulcer ascorbic acid (vitamin C) 1,000 mg 1 g PO DAILY vitamin #30 tabs 05/11/24 06/27/24 Rx tablet (Vitamin C) carboxymethylcellulose sodium 0.5 2 drp RIGHT EYE Q1H PRN DRY EYES 05/11/24 06/27/24 Rx % eye drops (Refresh Tears) #0 mL carvedilol 6.25 mg tablet 6.25 mg PO BID blood pressure #0 05/11/24 06/27/24 Rx tabs citalopram 20 mg tablet 20 mg PO DAILY depression #0 tabs 05/11/24 06/27/24 Rx methenamine hippurate 1 gram tablet 1 g PO BID 30 days #60 tabs 05/11/24 06/27/24 Rx tramadol 50 mg tablet 50 mg PO TID PRN pain 3 days #9 05/11/24 06/27/24 Rx tabs atenolol 25 mg tablet 25 mg PO DAILY blood pressure 06/27/24 06/27/24 History atorvastatin 40 mg tablet 40 mg PO QHS cholestrol 06/27/24 06/26/24 History ezetimibe 10 mg tablet (Zetia) 10 mg PO DAILY cholesterol 06/27/24 06/27/24 History fluoxetine 40 mg capsule 40 mg PO DAILY depression 06/27/24 06/27/24 History furosemide 40 mg tablet 40 mg PO DAILY water retention 06/27/24 06/27/24 History gabapentin 300 mg capsule 300 mg PO TID pain 06/27/24 06/27/24 History galcanezumab-gnlm 120 mg/mL 120 mg subcut Q30D migraine 06/27/24 Unknown History subcutaneous pen injector (Emgality Pen) insulin lispro 100 unit/mL 1 sliding scale dose subcut ACHS 06/27/24 06/27/24 History subcutaneous pen (Humalog KwikPen (U-100) Insulin) levothyroxine 25 mcg tablet 25 mcg PO DAILY 06/27/24 06/27/24 History metoclopramide HCl 10 mg tablet 10 mg PO TID 06/27/24 06/27/24 History nystatin 100,000 unit/gram topical 1 applic topical BID 06/27/24 06/27/24 History cream ondansetron 4 mg disintegrating 4 mg PO Q8H PRN Nausea 06/27/24 Unknown History tablet rimegepant 75 mg disintegrating 75 mg PO DAILY PRN migraine 06/27/24 Unknown History tablet (Nurtec ODT) trazodone 150 mg tablet 150 mg PO QHS 07/16/24 Unknown History Allergy/AdvReac Type Severity Reaction Status Date / Time hydrochlorothiazide AdvReac Intermediate Contributes Verified 08/04/24 13:29 to gout naproxen (From Naprosyn) AdvReac Intermediate Nausea Verified 08/04/24 13:29 aspirin AdvReac Nausea Verified 08/04/24 13:29 Penicillins AdvReac Other Verified 08/04/24 13:29 Family History Father , Age 72 Hypertension Mother CAD (coronary artery disease) Myocardial infarction, Onset Age: 55 Hypertension Sister CAD (coronary artery disease) Brother Cancer Surgical History History of cardiac catheterization History of History of carpal tunnel surgery of right wrist History of carpal tunnel surgery of left wrist Hx of cystoscopy History of left heart catheterization (11/11/20) history of uterine ablation Social History household members: spouse housing: apartment Smoking Status: Never smoker alcohol intake: never substance use type: does not use caffeine: No ROS Constitutional Constitutional: Reports fatigue, malaise and weakness; Denies anorexia, change in weight, chills, fever(s), night sweats or other Eyes Eyes: Reports blurry vision right (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 and is following as an outpatient for her eye issues.) ENT HEENT: Denies abnormal hearing, dysphagia, ear pain, epistaxis, headache(s), hearing loss, nasal congestion, nasal discharge, post nasal drip, sinus pressure, sore throat or other Cardiovascular Cardiovascular: Reports edema, orthopnea and paroxysmal nocturnal dyspnea; Denies chest pain, claudication, dyspnea on exertion, lightheadedness, palpitations, rapid heart rate, syncope or other Respiratory/Chest Respiratory/Chest: Denies cough, dyspnea, excessive phlegm production, hemoptysis, productive cough, shortness of breath at rest, shortness of breath with exertion, wheezing or other Gastrointestinal Gastrointestinal: Denies abdominal pain, coffee ground emesis, constipation, diarrhea, dyspepsia, hematemesis, hematochezia, loose stools, melena, nausea, vomiting or other Genitourinary Genitourinary: Denies burning urination, difficulty urinating, dysuria, hematuria, nocturia, urinary frequency, urinary hesitancy, urinary incontinence, urinary urgency or other Musculoskeletal Musculoskeletal: Denies arthralgias, back pain, joint pain, joint stiffness, joint swelling, myalgias, neck pain or other Neurologic Neurologic: Denies abnormal gait, abnormal speech, confusion, disequilibrium, dizziness, focal weakness, headache(s), numbness, paresthesias, seizure-like activity, seizures, syncope, tingling, tremor(s) or other Psychiatric Psychiatric: Reports anxiety and depression; Denies homicidal ideation, suicidal ideation or other Endocrine Endocrinology: Denies change in body appearance, cold intolerance, excessive sweating, heat intolerance, polydipsia, polyuria or other Hematologic/Lymphatic Hematologic/Lymphatic: Denies anemia, easy bleeding, easy bruising, lymphadenopathy or other Allergic/Immunologic Allergic/Immunologic: Denies rhinitis, hives, eczemia, asthma or other Vital Signs Vital Signs Vital Signs: 08/04/24 13:30 08/04/24 13:33 08/04/24 15:28 Temperature 98.7 F Temperature Source Oral Pulse Rate 61 49 L Respiratory Rate 18 Respiratory Effort Normal Non-Labored Respiratory Pattern Normal Blood Pressure 146/78 H 120/83 H Blood Pressure Mean 100 95 Pulse Ox 97 99 Oxygen Delivery Method Room Air Fraction of Inspired Oxygen (FIO2) 08/04/24 15:58 Temperature Temperature Source Pulse Rate 52 L Respiratory Rate 12 Respiratory Effort Respiratory Pattern Normal Blood Pressure Blood Pressure Mean Pulse Ox 94 Oxygen Delivery Method Fraction of Inspired Oxygen (FIO2) 35 Weight Weight: 128.457 kg Body Mass Index (BMI) 48.6 Physical Exam Const no apparent distress and well nourished; Negative for average body habitus or healthy appearing Constitutional Narrative: Somnolent morbidly obese, white female, lying in bed, does awaken but falls asleep again easily, while awake is oriented x 3 General Appearance: cooperative Orientation / Consciousness: lethargic HEENT normocephalic and head/scalp atraumatic HEENT Narrative: Mucous membranes are markedly dry, Mallampati is 4, no thrush Eyes Eyes Narrative: Right eye with markedly abnormal conjunctiva and scleral injection, decreased vision in right eye, left eye is within normal limits Neck no lymphadenopathy and supple Neck Narrative: Neck is short and thick, trachea midline Resp normal respiratory effort, no retractions, no use of accessory muscles and clear to auscultation bilaterally Resp Narrative: Diffusely diminished but clear Auscultation: Negative for rales, rhonchi or wheezes Cardio regular rhythm, S1 normal heart sound, S2 normal heart sound, no murmurs, no rub, no gallops and no clicks Cardio Narrative: Sinus bradycardia GI normal to inspection, nondistended, normoactive bowel sounds, soft to palpation and non-tender GI Narrative: Markedly protuberant abdomen Extremity Extremity Narrative: Diffuse trace edema noted, no clubbing or cyanosis Skin Skin Narrative: Skin is dry Neuro moves all extremities and no focal motor deficits Neuro Narrative: Upper and lower extremity reflexes are delayed, patient appears generally weak but able to move all four extremities symmetrically, speech is intelligible but response times are slightly delayed Speech: Negative for speech normal Psych Psych Narrative: Affect is flattened mood seems depressed Results Lab / Micro Data 08/04/24 14:37 08/04/24 14:37 Labs: Laboratory Results - last 24 hr 08/04/24 14:14: POC Glucose 110 H 08/04/24 14:37: WBC 6.9, RBC 4.03 L, Hgb 12.2, Hct 39.4, MCV 97.8, MCH 30.3, MCHC 31.0 L, RDW Std Deviation 68.4 H, RDW Coeff of Alfredo 19.0 H, Plt Count 362, MPV 10.6, Sodium 139, Potassium 3.8, Chloride 102, Carbon Dioxide 24.8, Anion Gap 13, BUN 10, Creatinine 1.35 H, Estim Creat Clear Calc 63.33, Est GFR (MDRD) Non-Af 47 L, BUN/Creatinine Ratio 7.2 L, Glucose 113 H, Calcium 9.6, TSH 130.000 H ABG Data ABG results: ABG 08/04/24 14:03 Specimen Type ART Sample Site L Radial pH 7.34 L Bicarbonate Actual 28.2 H Total CO2 30 Base Excess 3 H O2 Saturation 87 L O2 % 21.0 ABG pCO2 51.8 H ABG pO2 57 L Justin Test Positive O2 Delivery Device Room Air Vent Mode Not entered Imaging Radiology Impression Brain CT 08/04/24 13:37 IMPRESSION: No acute process identified [facility] Assessment & Plan Assessment/Plan (1) Myxedema coma: (2) Sinus bradycardia on ECG: (3) Acute hypoxic on chronic hypercapnic respiratory failure: (4) Noncompliance with medication regimen: (5) MARYANA (acute kidney injury): (6) Toxic metabolic encephalopathy: PLAN: Plan Myxedema coma - Patient with decreased mentation, mild confusion and falls - Highly suspect patient is noncompliant with her levothyroxine - IV levothyroxine 200 mcg x 1 dose given emergency department and then will follow-up with 100 mcg daily - Check free T4 - Check cortisol level and if low will give Solu-Medrol - Repeat free T4 in 48 hours on 08/06/2024 - Consult critical care medicine Acute hypoxic and hypercapnic respiratory failure - Mild - Due to the above - Will check respiratory viral panel and COVID - As needed albuterol - Continue home inhalers - Will maintain BiPAP for now while very somnolent and wean as able - Patient is not oxygen dependent at baseline Toxic/metabolic encephalopathy - Secondary to the above - Anticipate improvement once thyroid replacement therapy has been on board for 48 hours or so Sinus bradycardia - It is documented the patient is on atenolol and Coreg-will hold both - Also markedly hypothyroid and this could be the etiology as well - EKG shows sinus bradycardia - Monitor on telemetry in the ICU MARYANA - Baseline serum creatinine appears to run between 0.8 and 1.0 - Serum creatinine currently is 1.35 - I asked that a bolus be given the emergency department and then will transition to LR for 2 L at 75 cc/h - Patient is markedly dry on exam - Avoid nephrotoxins and repeat lab in a.m. Medication noncompliance - This appears to be a manifestation of her noncompliance with medication - Patient says she has been taking her levothyroxine however she stated not taking or not taking it correctly - [employer] Operator/social work consulted for assistance DAVY - Continue BiPAP after no longer requiring continuous BiPAP COPD/allergic rhinitis - Continue home inhalers - As needed albuterol - Restart home nasal spray once off continuous BiPAP Right eye infection - Continue home eyedrops - Ongoing outpatient follow-up with ophthalmology History of migraine - Hold medications for now and restart if needed History of stroke - Continue aspirin - Continue secondary risk factor modification DM-2 - SSI every 6 hours Accu-Cheks every 6 hours - Transition to AC once patient able to eat - Will start cardiac/carb controlled diet once off continuous BiPAP and more awake Essential hypertension/hyperlipidemia - Hold antihypertensives and statins for right now - Restart medication once mental status is improving patient is off continuous BiPAP - As needed hydralazine available for systolic blood pressure greater than 160 Diabetic neuropathy - Hold gabapentin and consider reinitiation once mental status is improving renal function is improved Gastroparesis - Hold Reglan for now - Expect slow transit with marked hypothyroidism Depression/anxiety - Hold home trazodone - Hold home citalopram Morbid obesity - BMI is 48.6 - Complicates treatment, prognosis, outcomes - highly recommend weight loss DVT prophylaxis - Lovenox 40 twice daily due to BMI of 48.6 CODE STATUS - DNR CCA with no intubation Charges/Coding Visit Charges Inpatient E&M: 19583 Init Hosp L3
[2024-08-04] MEDS: LEVOTHYROXINE SODIUM 100 MCG VIAL 200 MCG IV (16:12)
[2024-08-04 16:13] LABS: Pro- Brain NATRIURETIC PEPTIDE 47 pg/mL (<=900)
[2024-08-04 17:15] LABS: T4 Free Direct < 0.11 ng/dL (0.76-1.46)
[2024-08-04] MEDS: Erythromycin Base 1 OPTH.TUBE 1 APPLIC OPHTHALMIC ×2 (17:50→22:40)
[2024-08-04 18:34] LABS: Bedside Glucose 87 mg/dL (74-106)
[2024-08-04] MEDS: Lactated Ringers 1,000 ML 75 ML IV (18:38)
[2024-08-04] MEDS: Albuterol 2.5 MG/3 ML VIAL.NEB. INHALATION (18:56)
--- NOTE | 2024-08-04 19:08 | PCMCONS.TICU ---
HPI Consult Data Date of Consult: 08/04/24 HPI Narrative HPI Narrative: COURTNEY CARMEN, is a 54yo F w/ COPD, DAVY on BiPAP, DM, HTN, chronic DOMINGO, hypothyroidism, h/o CVA, morbid obesity, anxiety/depression, medication noncompliance who presented to ED due to AMS. Difficult historian, giving conflicting answers on interview compared to other provider notes. She reports having increased fatigue, drowsiness, and falls over the past 1-2 wks. She also noted worsening dyspnea over past 8 months, and intermittent chest pain (though she currently denies and cannot characterize this well). She has also been on abx eye drops for R eye infection for months she reports. Denied fevers/chills, N/V, or other prominent sx. On arrival here she was noted to have bradycardia, MARYANA, marked TSH elevation at 130 with free T4 < 0.11. ABG also showed mild hypercapnia. She was started on BiPAP and given dose of IV Synthroid 200mcg in ED, subsequently admitted to ICU. She is slowly waking up more now. She reports compliance with her home medications including Synthroid. Denies smoking, EtOH use, illicit drugs. ROS: As per HPI. Otherwise difficult to obtain further given pt drowsiness/AMS [facility] Medical History Kidney failure MARYANA (acute kidney injury) Fatigue MARYANA (acute kidney injury) Walker as ambulation aid Ambulates with cane Low iron History of renal disease High cholesterol DVT (deep venous thrombosis) PONV (postoperative nausea and vomiting) Stroke/cerebrovascular accident Sleep apnea [facility] follow-up encounter Scalp hematoma Pulmonary embolism Post-menopausal Thyroid disease Injury of head and neck Dietary restriction Difficulty swallowing BiPAP (biphasic positive airway pressure) dependence COPD (chronic obstructive pulmonary disease) Shortness of breath on exertion Leg cramps History of pain when walking History of edema History of echocardiogram History of stress test Syncope Abnormal glucose Noncompliance DAVY treated with BiPAP UTI (urinary tract infection) Vitamin D deficiency Restless leg syndrome Vitamin B12 deficiency Iron deficiency anemia History of chronic back pain Wears glasses Arthritis Non-smoker Hydronephrosis Depression Anemia Migraine headache Chronic kidney disease Diabetes mellitus Gout Celiac disease Hyperlipidemia GERD (gastroesophageal reflux disease) Dyspnea on exertion Chest pain Hypersomnia Cardiac murmur Microcytic anemia Hypertension Morbid obesity with BMI of 40.0-44.9, adult Asthma Hypothyroidism Anxiety Home Medications ?Medication ?Instructions ?Recorded ?Last Taken ?Type budesonide-formoterol HFA 160 2 puff inhalation BID COPD 04/02/20 06/26/24 History mcg-4.5 mcg/actuation aerosol inhaler (Symbicort) naratriptan 2.5 mg tablet 2.5 mg PO BID PRN migraines 10/01/23 Unknown History fluticasone propionate 50 2 spray intranasal Q12H allergies 01/20/24 06/27/24 History mcg/actuation nasal spray,suspension levothyroxine 200 mcg tablet 200 mcg PO DAILY thyroid 01/20/24 06/27/24 History isosorbide mononitrate 30 mg 30 mg PO DAILY HEART #30 tabs 03/30/24 06/27/24 Rx tablet,extended release 24 hr valsartan 160 mg tablet 160 mg PO BID blood pressure #180 03/30/24 06/27/24 Rx tabs erythromycin 5 mg/gram (0.5 %) eye 1 applic ophthalmic (eye) 4X/DAY 05/10/24 06/27/24 History ointment Corneal ulcer ascorbic acid (vitamin C) 1,000 mg 1 g PO DAILY vitamin #30 tabs 05/11/24 06/27/24 Rx tablet (Vitamin C) carboxymethylcellulose sodium 0.5 2 drp RIGHT EYE Q1H PRN DRY EYES 05/11/24 06/27/24 Rx % eye drops (Refresh Tears) #0 mL carvedilol 6.25 mg tablet 6.25 mg PO BID blood pressure #0 05/11/24 06/27/24 Rx tabs citalopram 20 mg tablet 20 mg PO DAILY depression #0 tabs 05/11/24 06/27/24 Rx methenamine hippurate 1 gram tablet 1 g PO BID 30 days #60 tabs 05/11/24 06/27/24 Rx tramadol 50 mg tablet 50 mg PO TID PRN pain 3 days #9 05/11/24 06/27/24 Rx tabs atenolol 25 mg tablet 25 mg PO DAILY blood pressure 06/27/24 06/27/24 History atorvastatin 40 mg tablet 40 mg PO QHS cholestrol 06/27/24 06/26/24 History ezetimibe 10 mg tablet (Zetia) 10 mg PO DAILY cholesterol 06/27/24 06/27/24 History fluoxetine 40 mg capsule 40 mg PO DAILY depression 06/27/24 06/27/24 History furosemide 40 mg tablet 40 mg PO DAILY water retention 06/27/24 06/27/24 History gabapentin 300 mg capsule 300 mg PO TID pain 06/27/24 06/27/24 History galcanezumab-gnlm 120 mg/mL 120 mg subcut Q30D migraine 06/27/24 Unknown History subcutaneous pen injector (Emgality Pen) insulin lispro 100 unit/mL 1 sliding scale dose subcut ACHS 06/27/24 06/27/24 History subcutaneous pen (Humalog KwikPen diabetes (U-100) Insulin) levothyroxine 25 mcg tablet 25 mcg PO DAILY hypothyroidism 06/27/24 06/27/24 History metoclopramide HCl 10 mg tablet 10 mg PO TID nausea 06/27/24 06/27/24 History rimegepant 75 mg disintegrating 75 mg PO DAILY PRN migraine 06/27/24 Unknown History tablet (Nurtec ODT) trazodone 150 mg tablet 150 mg PO QHS sleep 07/16/24 Unknown History Allergy/AdvReac Type Severity Reaction Status Date / Time hydrochlorothiazide AdvReac Intermediate Contributes Verified 08/04/24 13:29 to gout naproxen (From Naprosyn) AdvReac Intermediate Nausea Verified 08/04/24 13:29 aspirin AdvReac Nausea Verified 08/04/24 13:29 Penicillins AdvReac Other Verified 08/04/24 13:29 Family History Father , Age 72 Hypertension Mother CAD (coronary artery disease) Myocardial infarction, Onset Age: 55 Hypertension Sister CAD (coronary artery disease) Brother Cancer Surgical History History of cardiac catheterization History of History of carpal tunnel surgery of right wrist History of carpal tunnel surgery of left wrist Hx of cystoscopy History of left heart catheterization (11/11/20) history of uterine ablation Social History household members: spouse housing: apartment Smoking Status: Never smoker alcohol intake: never substance use type: does not use caffeine: No Objective Data Objective Data Vital Signs: Vital Signs Last response Temperature 36.4 C L 08/04/24 17:13 Temperature Source Temporal 08/04/24 17:13 Pulse Rate 55 L 08/04/24 17:13 Respiratory Rate 15 08/04/24 17:13 Respiratory Effort Normal, Non-Labored 08/04/24 13:33 Respiratory Pattern Normal 08/04/24 15:58 Blood Pressure 133/108 H 08/04/24 17:13 Blood Pressure Mean 116 08/04/24 17:13 Blood Pressure Source Monitor 08/04/24 17:13 Blood Pressure Position Semi-Fowlers 08/04/24 17:13 Blood Pressure Location Left Forearm 08/04/24 17:13 Pulse Ox 100 08/04/24 17:13 Oxygen Delivery Method Nasal Cannula 08/04/24 17:13 Oxygen Flow Rate (L/min) 2 08/04/24 17:13 Fraction of Inspired Oxygen (FIO2) 35 08/04/24 15:58 I&O: I&O Last 24 Hours 08/03/24 08/04/24 08/04/24 23:59 11:59 23:59 Intake Total 120 / 120 Balance 120 / 120 I&O: Total Stay 08/04/24 13:28 thru 08/04/24 18:00 Intake Total 120 Balance 120 Current Meds Ordered / Administered: Current meds ordered / Administered Generic Name Dose Route Start Last Admin Trade Name Freq PRN Reason Stop Dose Admin Acetaminophen 650 mg 08/04/24 17:13 Acetaminophen 325 Mg Tablet PO Q6H PRN PRN Pain 1-10 Or Fever>100.7 Albuterol Sulfate 2.5 mg 08/04/24 17:13 Albuterol 2.5 Mg/3 Ml Vial.Neb. INHALATION Q2H PRN PRN SOB &/OR WHEEZING Albuterol Sulfate 2.5 mg 08/04/24 17:20 08/04/24 18:56 Albuterol 2.5 Mg/3 Ml Vial.Neb. INHALATION 2.5 mg Q6HWA.RT MERI Administration Artificial Tears 2 drp 08/04/24 17:13 Carboxymethylcellulose Sodium 1 Drp Drops OPHTHALMIC Q1H PRN DRY EYES Budesonide 0.5 mg 08/04/24 17:20 Budesonide Respules 0.5 Mg/2 Ml Ampul.Neb. INHALATION Q12H.RT [facility] Docusate Sodium 100 mg 08/04/24 22:00 Docusate Sodium 100 Mg Capsule PO BID [facility] Enoxaparin Sodium 40 mg 08/04/24 22:00 Enoxaparin 40 Mg/0.4 Ml Syringe SC BID MERI Erythromycin 1 applic 08/04/24 18:00 08/04/24 17:50 Erythromycin Base 1 Opth.Tube OPHTHALMIC 1 applic 4X/DAY MERI Administration Guaifenesin 10 ml 08/04/24 17:13 Guaifenesin 10 Ml Udc (200mg/10ml) PO Q4H PRN PRN COUGH Hydralazine HCl 10 mg 08/04/24 17:13 Hydralazine 20 Mg/Ml Vial IV Q6H PRN PRN SBP >160 Protocol Lactated Ringer's 1,000 mls @ 75 mls/hr 08/04/24 17:13 08/04/24 18:38 IV 08/05/24 19:52 75 mls/hr .[id number] MERI Administration Sodium Chloride 250 mls @ 15 mls/hr 08/04/24 17:14 IV .[id number] PRN Saline Flush Sodium Chloride 250 mls @ 15 mls/hr 08/04/24 17:14 IV .[id number] PRN Additional IVPB Infusion Insulin Human Lispro 0 unit 08/04/24 18:15 08/04/24 18:40 Insulin Lispro 100 Unit/Ml Insuln.Pen SC Not Given ACHS [facility] Protocol Levothyroxine Sodium 100 mcg 08/05/24 10:00 Levothyroxine Sodium 100 Mcg Vial IV DAILY [facility] Ondansetron HCl 4 mg 08/04/24 17:13 Ondansetron 4 Mg/2 Ml Vial IV Q8H PRN PRN NAUSEA/VOMITING Senna/Docusate Sodium 2 tablet 08/04/24 17:13 Senna/Docusate Sodium 1 Tablet PO BID PRN PRN Constipation Sodium Chloride 10 - 40 ml 08/04/24 17:14 0.9% Saline Lock 10 Ml Syringe IV UD PRN SALINE FLUSH Lab / Micro Data 08/04/24 14:37 08/04/24 14:37 Labs: Laboratory Results - last 24 hr 08/04/24 14:14: POC Glucose 110 H 08/04/24 14:37: WBC 6.9, RBC 4.03 L, Hgb 12.2, Hct 39.4, MCV 97.8, MCH 30.3, MCHC 31.0 L, RDW Std Deviation 68.4 H, RDW Coeff of Alfredo 19.0 H, Plt Count 362, MPV 10.6, Sodium 139, Potassium 3.8, Chloride 102, Carbon Dioxide 24.8, Anion Gap 13, BUN 10, Creatinine 1.35 H, Estim Creat Clear Calc 63.33, Est GFR (MDRD) Non-Af 47 L, BUN/Creatinine Ratio 7.2 L, Glucose 113 H, Calcium 9.6, TSH 130.000 H 08/04/24 15:00: NT pro BNP II 47 08/04/24 16:00: Free T4 < 0.11 L, Cortisol AM Sample 18.40 08/04/24 18:14: POC Glucose 87 Micro: Microbiology 08/04/24 15:44 Nasal Secretion SARS-CoV-2 Antigen (Rapid) - Final ABG Data ABG results: ABG 08/04/24 14:03 Specimen Type ART Sample Site L Radial pH 7.34 L Bicarbonate Actual 28.2 H Total CO2 30 Base Excess 3 H O2 Saturation 87 L O2 % 21.0 ABG pCO2 51.8 H ABG pO2 57 L Justin Test Positive O2 Delivery Device Room Air Vent Mode Not entered Imaging Radiology Impression Brain CT 08/04/24 13:37 IMPRESSION: No acute process identified Reading Location[facility] Assessment and Plan . Assessment and plan: Physical Exam: Gen - NAD, morbidly obese, drowsy HEENT - MM dry. R eye swelling with redness Resp - CTAB. Breathing nonlabored CV - Bradycardic, regular. No m/g/r Abd - Soft, NT, ND Ext - No c/c/e. Skin - +bruising on LE Neuro - Grossly nonfocal. Drowsy but arousable. Can answer some simple questions but falls back asleep quickly I have reviewed the pertinent vital sign, laboratory, and imaging data. ASSESSMENT: # Myxedema coma - noncompliance with home synthroid for hypothyroidism may be contributory # Acute encephalopathy # Acute hypoxic and hypercapneic respiratory failure # MARYANA # Sinus bradycardia # COPD # DAVY on BiPAP # R eye infection - on chronic abx eye drops # DM # HTN # Chronic DOMINGO # h/o CVA # Morbid obesity # Anxiety/depression # Medication noncompliance PLAN: -Monitor mental status closely in ICU. CT head without acute pathology -IV synthroid. Steroids not given due to normal cortisol level -On 2L NC, wean to keep sats > 90%. Cont BiPAP with all naps/sleep -Give additional IVF. Monitor Cr, UOP -Check troponin, D-dimer given pt reported ongoing recent dyspnea and intermittent CP (though unreliable historian) -Check ammonia, UDS, UA -Hold home beta skylar (unclear if pt actually taking or not). Monitor HR. Consider echo if not improving -Cont abx eye drops FEN/GI: NPO until more awake Proph DVT/GI: Lovenox Code status: DNR but OK with intubation Critical Care Time: 60 mins The entirety of this encounter was done via telemedicine using both audio and video. Consent was obtained.
[2024-08-04] MEDS: Budesonide Respules 0.5 MG/2 ML AMPUL.NEB. INHALATION (19:10)
[2024-08-04] MEDS: LACTATED RINGERS 1,000 ML 999 ML IV (20:00)
--- NOTE | 2024-08-04 20:15 | RAD_ITS ---
PROCEDURE: CHEST 1 VIEW (PORTABLE) 08/04/2024 REASON FOR EXAM: RESP FAILURE, OBESITY TECHNIQUE: Frontal view of the chest. COMPARISON: Chest radiograph 06/05/2024. FINDINGS: Hardware: None. Heart: Heart size is mildly enlarged. Lungs: No focal consolidation, pleural effusion or pneumothorax. Bones: The bones are unremarkable. RAD/Chest 1 View (Portable) IMPRESSION: No Acute Findings. Reading Location: [id number]
[2024-08-04 20:51] LABS: Ammonia 16.3 umol/L (11-51)
[2024-08-04 20:55] LABS: AST(SGOT) 28 U/L (<=31); Alanine Aminotransfer ALT/SGPT 12 U/L (<=34); Albumin, Serum 3.9 g/dL (3.5-5.0); Alkaline Phosphatase 109 U/L (35-104); Bilirubin, Direct 0.15 mg/dL (0.00-0.30); Globulin 3.4 g/dL (2.2-4.2); Magnesium 2.5 mg/dL (1.5-2.2); Phosphorus 3.4 mg/dL (2.7-4.5); Protein, Total 7.3 g/dL (5.9-8.4); Total Bilirubin 0.35 mg/dL (0.00-1.30); Troponin T High Sensitivity 36 ng/L (<=14)
[2024-08-04 21:02] LABS: D-Dimer Quantitative (DVT/PE) 1.05 FEU/ug/m (0.27-0.49)
[2024-08-04 21:46] LABS: Lactic Acid 2.9 mmol/L (0.0-2.0)
[2024-08-04] MEDS: Enoxaparin 40 MG/0.4 ML Syringe SC (22:40)
[2024-08-04 23:06] LABS: Bedside Glucose 84 mg/dL (74-106)
[2024-08-04 23:17] LABS: Troponin T High Sens 2 HR 34 ng/L (<=14)
[2024-08-04 23:18] LABS: T3 Total - Triiodothyronine < 0.20 ng/mL (0.80-2.00)
[2024-08-05] VITALS (30 sets, daily range): BP systolic 87–172; BP diastolic 55–121; PULSE 50–69; RESP 12–22; TEMP 36.3–36.6; O2SAT 90–100; BMI 49.8
[2024-08-05 01:06] LABS: Troponin T High Sens 4 HR 35 ng/L (<=14)
[2024-08-05 01:19] LABS: Reflex Lactate? Y
[2024-08-05] MEDS: Ondansetron 4 MG/2 ML Vial IV (02:07)
[2024-08-05] MEDS: 0.9% Saline Lock 10 ML Syringe IV ×2 (02:08→04:23)
[2024-08-05 03:45] LABS: ALB/GLOB Ratio 1.3 RATIO (0.9-2.4); AST(SGOT) 24 U/L (<=31); Alanine Aminotransfer ALT/SGPT 10 U/L (<=34); Albumin, Serum 3.6 g/dL (3.5-5.0); Alkaline Phosphatase 97 U/L (35-104); Anion Gap 11 (5-15); BUN 9 mg/dL (4-19); BUN/Creat Ratio 7.4 RATIO (10-20); Calcium,Total 9.2 mg/dL (7.6-11.0); Carbon Dioxide 25.1 mmol/L (21.0-32.0); Chloride 104 mmol/L (98-108); Creatinine, Serum 1.18 mg/dL (0.70-1.20); EST Glomerular Filtration Rate 55 (>60); Estimated Creatinine Clearance 72.78 ml/min (50-250); Globulin 2.9 g/dL (2.2-4.2); Glucose 131 mg/dL (70-99); Lactic Acid 1.9 mmol/L (0.0-2.0); Magnesium 2.5 mg/dL (1.5-2.2); Phosphorus 3.2 mg/dL (2.7-4.5); Potassium 3.9 mmol/L (3.3-5.1); Protein, Total 6.4 g/dL (5.9-8.4); Sodium Level 140 mmol/L (133-145); Total Bilirubin 0.35 mg/dL (0.00-1.30)
[2024-08-05] MEDS: proCHLORPERazine 10 MG/2 ML Vial IV (04:22)
[2024-08-05] MEDS: Pantoprazole Sodium 40 MG in 0.9% Normal Saline (100mL MB+) 100 ML 330 MG IV ×2 (04:50→20:50)
[2024-08-05] MEDS: Acetaminophen 325 MG Tablet 650 MG PO ×2 (04:50→13:55)
[2024-08-05 05:08] LABS: Absolute Lymphocyte Count 1.97 X10^3/uL (0.83-4.51); Absolute Neutrophil Count 4.8 X10^3/uL (2.0-7.7); Basophil# 0.08 X10^3/uL; Eosinophil# 0.23 X10^3/uL; Hemoglobin 10.9 g/dL (12.0-15.0); Lymphocyte # 1.97 X10^3/ul (0.83-4.51); Lymphocyte % 25.5 % (19-41); Mean Corp Hgb Conc 31.1 g/dL (32-36); Mean Corpuscular Hgb 30.5 pg (27.0-32.0); Mean Platelet Vol. 10.8 fl (6.2-12.0); Monocyte# 0.62 X10^3/uL; NRBC Flagged by Analyzer 0 % (0-5); Neutrophil # 4.79 X10^3/uL (2.7-7.7); Neutrophil % 62.1 % (47-70); POSITIVE MORPHOLOGY YES; Platelet Count 321 K/mm3 (150-450); RBC Distribution Width CV 18.9 % (11.6-14.6); RBC Distribution Width SD 68.1 fl (35.1-43.9); Red Blood Count 3.57 M/mm3 (4.2-5.4); White Blood Count 7.7 K/mm3 (4.4-11.0)
[2024-08-05 05:09] LABS: Color, Urine Yellow (Yellow); Glucose, Dipstick Normal (Normal); Ketone-Dipstick Negative (Negative); Leukocyte Esterase-Dipstick 500 /ul (Negative); Nitrite-Dipstick Positive (Negative); Occult Blood-Urine 50 /ul (Negative); Protein-Dipstick 30 mg/dl (Negative); Specific Gravity, Urine 1.025 (1.002-1.030); Urine Bilirubin Dipstick Negative (Negative); Urine Clarity Sl. Cloudy (Clear); Urine Urobilinogen Normal (Normal)
[2024-08-05 05:17] LABS: Bacteria 1+ /hpf (None Seen); Hyaline Cast 0-5 SEEN /lpf (0-5); Mucous, Urine 1+ /hpf (<or=2+); Red Blood Cells-Urine 0-5 SEEN /hpf (0-5); Squamous Epithelial Cells - UA 0-5 SEEN /hpf (5-10); White Blood Cells 10-25 SEEN /hpf (0-5)
[2024-08-05 05:42] LABS: Anisocytosis 2+; Differential Indicated SCAN CRITERIA MET
[2024-08-05 05:44] LABS: Allen Test Positive; Base Excess 3 mmol/L (-2 to +2); Bicarbonate 28.7 mmol/L (22-26); Blood Gas Specimen Type ART; Mode Not entered; O2 Delivery Device BiPAP; PEEP 8; PIP 14; PO2 66 mmHG (75-100); RR 12; SITE L Radial; SO2 91 % (95-99); Total Carbon Dioxide 30 mmol/L; pCO2 51.2 mmHg (35-45); pH 7.36 (7.35-7.45)
[2024-08-05 05:51] LABS: Amphetamine Urine PRESUMPTIVE POSITIVE (<1000 ng/mL); Barbiturate Urine NEGATIVE (< 200 ng/mL); Benzodiazepine Urine PRESUMPTIVE POSITIVE (< 200 ng/mL); Buprenorphine Urine NEGATIVE (< 200 ng/mL); Cocaine Urine NEGATIVE (< 300 ng/mL); Fentanyl, Urine NEGATIVE; Methadone Urine PRESUMPTIVE POSITIVE (< 300 ng/mL); Opiates Urine NEGATIVE (< 300 ng/mL); Oxycodone, Urine NEGATIVE (< 100 ng/mL); PCP Urine NEGATIVE (< 25 ng/mL); THC Urine NEGATIVE (< 50 ng/mL)
[2024-08-05] MEDS: Albuterol 2.5 MG/3 ML VIAL.NEB. INHALATION ×3 (07:00→19:25)
[2024-08-05] MEDS: Budesonide Respules 0.5 MG/2 ML AMPUL.NEB. INHALATION ×2 (07:00→19:26)
--- NOTE | 2024-08-05 08:53 | PCM.PN.TICU ---
Objective Data Objective Data Vital Signs: Vital Signs Last response Temperature 36.3 C L 08/05/24 08:00 Temperature Source Axillary 08/05/24 08:00 Pulse Rate 52 L 08/05/24 08:00 Respiratory Rate 15 08/05/24 08:00 Respiratory Effort Normal, Non-Labored 08/04/24 13:33 Respiratory Pattern Normal 08/05/24 07:01 Blood Pressure 113/66 08/05/24 08:00 Blood Pressure Mean 81 08/05/24 08:00 Blood Pressure Source Monitor 08/05/24 08:00 Blood Pressure Position Right Lateral 08/05/24 08:00 Blood Pressure Location Left Forearm 08/05/24 08:00 Pulse Ox 99 08/05/24 08:00 Oxygen Delivery Method Bi-pap 08/05/24 08:00 Oxygen Flow Rate (L/min) 2 08/05/24 00:00 Fraction of Inspired Oxygen (FIO2) 30 08/05/24 07:01 I&O: I&O Last 24 Hours 08/04/24 08/04/24 08/05/24 11:59 23:59 11:59 Intake Total 1170 / 1410 460 / 460 Output Total 0 / 0 650 / 650 Balance 1170 / 1410 -190 / -190 I&O: Total Stay 08/04/24 13:28 thru 08/05/24 06:00 Intake Total 1630 Output Total 650 Balance 980 Current Meds Ordered / Administered: Current meds ordered / Administered Generic Name Dose Route Start Last Admin Trade Name Freq PRN Reason Stop Dose Admin Acetaminophen 650 mg 08/04/24 17:13 08/05/24 04:50 Acetaminophen 325 Mg Tablet PO 650 mg Q6H PRN PRN Administration Pain 1-10 Or Fever>100.7 Albuterol Sulfate 2.5 mg 08/04/24 17:13 Albuterol 2.5 Mg/3 Ml Vial.Neb. INHALATION Q2H PRN PRN SOB &/OR WHEEZING Albuterol Sulfate 2.5 mg 08/04/24 17:20 08/05/24 07:00 Albuterol 2.5 Mg/3 Ml Vial.Neb. INHALATION 2.5 mg Q6HWA.RT MERI Administration Artificial Tears 2 drp 08/04/24 17:13 Carboxymethylcellulose Sodium 1 Drp Drops OPHTHALMIC Q1H PRN DRY EYES Budesonide 0.5 mg 08/04/24 17:20 08/05/24 07:00 Budesonide Respules 0.5 Mg/2 Ml Ampul.Neb. INHALATION 0.5 mg Q12H.RT MERI Administration Docusate Sodium 100 mg 08/04/24 22:00 08/04/24 22:41 Docusate Sodium 100 Mg Capsule PO Not Given BID MERI Enoxaparin Sodium 40 mg 08/04/24 22:00 08/04/24 22:40 Enoxaparin 40 Mg/0.4 Ml Syringe SC 40 mg BID MERI Administration Erythromycin 1 applic 08/04/24 18:00 08/04/24 22:40 Erythromycin Base 1 Opth.Tube OPHTHALMIC 1 applic 4X/DAY MERI Administration Guaifenesin 10 ml 08/04/24 17:13 Guaifenesin 10 Ml Udc (200mg/10ml) PO Q4H PRN PRN COUGH Hydralazine HCl 10 mg 08/04/24 17:13 Hydralazine 20 Mg/Ml Vial IV Q6H PRN PRN SBP >160 Protocol Lactated Ringer's 1,000 mls @ 75 mls/hr 08/04/24 17:13 08/04/24 18:38 IV 08/05/24 19:52 75 mls/hr .[id number] MERI Administration Sodium Chloride 250 mls @ 15 mls/hr 08/04/24 17:14 IV .[id number] PRN Saline Flush Sodium Chloride 250 mls @ 15 mls/hr 08/04/24 17:14 IV .[id number] PRN Additional IVPB Infusion Pantoprazole Sodium 40 mg/ 100 mls @ 330 mls/hr 08/05/24 04:05 08/05/24 05:46 Sodium Chloride IV Infused Q12 MERI Infusion Insulin Human Lispro 0 unit 08/04/24 18:15 08/05/24 06:18 Insulin Lispro 100 Unit/Ml Insuln.Pen SC Not Given ACHS [facility] Protocol Levothyroxine Sodium 100 mcg 08/05/24 10:00 Levothyroxine Sodium 100 Mcg Vial IV DAILY MERI Ondansetron HCl 4 mg 08/04/24 17:13 08/05/24 02:07 Ondansetron 4 Mg/2 Ml Vial IV 4 mg Q8H PRN PRN Administration NAUSEA/VOMITING Senna/Docusate Sodium 2 tablet 08/04/24 17:13 Senna/Docusate Sodium 1 Tablet PO BID PRN PRN Constipation Sodium Chloride 10 - 40 ml 08/04/24 17:14 08/05/24 04:23 0.9% Saline Lock 10 Ml Syringe IV 10 ml UD PRN Administration SALINE FLUSH Lab / Micro Data 08/05/24 04:30 08/05/24 03:18 Labs: Laboratory Results - last 24 hr 08/04/24 14:14: POC Glucose 110 H 08/04/24 14:37: WBC 6.9, RBC 4.03 L, Hgb 12.2, Hct 39.4, MCV 97.8, MCH 30.3, MCHC 31.0 L, RDW Std Deviation 68.4 H, RDW Coeff of Alfredo 19.0 H, Plt Count 362, MPV 10.6, Sodium 139, Potassium 3.8, Chloride 102, Carbon Dioxide 24.8, Anion Gap 13, BUN 10, Creatinine 1.35 H, Estim Creat Clear Calc 63.33, Est GFR (MDRD) Non-Af 47 L, BUN/Creatinine Ratio 7.2 L, Glucose 113 H, Calcium 9.6, TSH 130.000 H, Total T3 < 0.20 L 08/04/24 15:00: NT pro BNP II 47 08/04/24 16:00: Free T4 < 0.11 L, Total T3 Cancelled, Cortisol AM Sample 18.40 08/04/24 18:14: POC Glucose 87 08/04/24 20:25: D-Dimer Quant (PE/DVT) 1.05 H*, Phosphorus Cancelled 08/04/24 20:25: Phosphorus 3.4, Magnesium Cancelled 08/04/24 20:25: Magnesium 2.5 H, Total Bilirubin Cancelled 08/04/24 20:25: Total Bilirubin 0.35, Direct Bilirubin Cancelled 08/04/24 20:25: Direct Bilirubin 0.15, AST Cancelled 08/04/24 20:25: AST 28, ALT Cancelled 08/04/24 20:25: ALT 12, Alkaline Phosphatase Cancelled 08/04/24 20:25: Alkaline Phosphatase 109 H, Ammonia 16.3, Troponin T High Sens 36 H D, Total Protein Cancelled 08/04/24 20:25: Total Protein 7.3, Albumin Cancelled 08/04/24 20:25: Albumin 3.9, Globulin Cancelled 08/04/24 20:25: Globulin 3.4 08/04/24 21:12: Lactic Acid 2.9 H* 08/04/24 22:39: POC Glucose 84 08/04/24 22:45: Troponin T Hi Sens 2 Hr 34 H 08/05/24 00:25: Troponin T Hi Sens 4Hr 35 H 08/05/24 03:18: Sodium 140, Potassium 3.9, Chloride 104, Carbon Dioxide 25.1, Anion Gap 11, BUN 9, Creatinine 1.18, Estim Creat Clear Calc 72.78, Est GFR (MDRD) Non-Af 55 L, BUN/Creatinine Ratio 7.4 L, Glucose 131 H, Lactic Acid 1.9, Calcium 9.2, Phosphorus 3.2, Magnesium 2.5 H, Total Bilirubin 0.35, AST 24, ALT 10, Alkaline Phosphatase 97, Total Protein 6.4, Albumin 3.6, Globulin 2.9, Albumin/Globulin Ratio 1.3 08/05/24 04:30: WBC 7.7, RBC 3.57 L, Hgb 10.9 L, Hct 35.0 L, MCV 98.0, MCH 30.5, MCHC 31.1 L, RDW Std Deviation 68.1 H, RDW Coeff of Alfredo 18.9 H, Plt Count 321, MPV 10.8, Immature Gran % (Auto) 0.400, Neut % (Auto) 62.1, Lymph % (Auto) 25.5, [place] % (Auto) 8.0, Eos % (Auto) 3.0, Baso % (Auto) 1.0, Absolute Neuts (auto) 4.8, Absolute Lymphs (auto) 1.97, Nucleated RBC % 0, Anisocytosis 2+ 08/05/24 04:45: Urine Color Yellow, Urine Clarity Sl. Cloudy, Urine pH 5.0, Ur Specific [place] 1.025, Urine Protein 30 H, Urine Glucose (UA) Normal, Urine Ketones Negative, Urine Occult Blood 50 H, Urine Nitrite Positive H, Urine Bilirubin Negative, Urine Urobilinogen Normal, Ur Leukocyte Esterase 500 H, Urine RBC 0-5 SEEN, Urine WBC 10-25 SEEN, Ur Squamous Epith Cells 0-5 SEEN, Urine Bacteria 1+, Hyaline Casts 0-5 SEEN, Urine Mucus 1+, Urine Opiates Screen Cancelled, U Buprenorphine Qual Cancelled, Ur Oxycodone Screen Cancelled, Urine Methadone Screen Cancelled, Urine Fentanyl Screen Cancelled, Ur Barbiturates Screen Cancelled, Ur Phencyclidine Scrn Cancelled, Ur Amphetamines Screen Cancelled, U Benzodiazepines Scrn Cancelled, Urine Cocaine Screen Cancelled, U Cannabinoids Screen Cancelled 08/05/24 04:50: Urine Opiates Screen NEGATIVE, U Buprenorphine Qual NEGATIVE, Ur Oxycodone Screen NEGATIVE, Urine Methadone Screen PRESUMPTIVE POSITIVE, Urine Fentanyl Screen NEGATIVE, Ur Barbiturates Screen NEGATIVE, Ur Phencyclidine Scrn NEGATIVE, Ur Amphetamines Screen PRESUMPTIVE POSITIVE, U Benzodiazepines Scrn PRESUMPTIVE POSITIVE, Urine Cocaine Screen NEGATIVE, U Cannabinoids Screen NEGATIVE Micro: Microbiology 08/04/24 15:52 Mucosa - Nasopharyngeal Respiratory Panel (PCR) - Final 08/04/24 15:44 Nasal Secretion SARS-CoV-2 Antigen (Rapid) - Final ABG Data ABG results: ABG 08/04/24 08/05/24 14:03 05:40 Specimen Type ART ART Sample Site L Radial L Radial pH 7.34 L 7.36 Bicarbonate Actual 28.2 H 28.7 H Total CO2 30 30 Base Excess 3 H 3 H O2 Saturation 87 L 91 L O2 % 21.0 30.0 ABG pCO2 51.8 H 51.2 H ABG pO2 57 L 66 L Justin Test Positive Positive Respiration Rate 12 O2 Delivery Device Room Air BiPAP Vent Mode Not entered Not entered POC PEEP 8 Peak Inspir Pressure 14 Imaging Radiology Impression Brain CT 08/04/24 13:37 IMPRESSION: No acute process identified Reading [facility] Chest X-Ray 08/04/24 20:15 IMPRESSION: No Acute Findings. Reading Location: [id number] Assessment and Plan . Assessment and plan: Subjective: No acute events o/n. Did not sleep well overnight d/t mild confusion/agitation. Now sleeping deeply on BiPAP Physical Exam: Gen - NAD, morbidly obese, drowsy HEENT - MM dry. R eye swelling with redness Resp - CTAB. Breathing nonlabored CV - Bradycardic, regular. No m/g/r Abd - Soft, NT, ND Ext - No c/c/e. Skin - +bruising on LE Neuro - Grossly nonfocal. Drowsy but arousable on BiPAP, falls back asleep quickly however I have reviewed the pertinent vital sign, laboratory, and imaging data. ASSESSMENT: # Myxedema coma - noncompliance with home synthroid for hypothyroidism may be contributory # Acute encephalopathy - may be multifactorial from myxedema coma, UTI, ativan/pain medication use at home, mild hypercapnia, etc # Acute hypoxic and hypercapneic respiratory failure # MARYANA # Sinus bradycardia # UTI # Lactic acidosis # COPD # DAVY on BiPAP # R eye infection - on chronic abx eye drops # DM # HTN # Chronic DOMINGO # h/o CVA # Morbid obesity # Anxiety/depression # Medication noncompliance - however UDS presumptive positive for benzo, amphetamines, methadone PLAN: -Monitor mental status closely in ICU. CT head without acute pathology, consider MR brain/EEG if not improving with below therapies -IV synthroid. Steroids not given due to normal cortisol level. -On 2L NC while awake, wean to keep sats > 90%. Cont BiPAP with all naps/sleep. Need to ensure compliance at home with using BiPAP with all daytime naps/sleep -Cont gentle IVF. Monitor Cr, UOP, improving. Lactate cleared -CTA chest neg for PE. Slight trop elevation, flat -Start rocephin for UTI. f/u Cx -Holding home beta skylar (unclear if pt actually taking or not). Monitor HR. Consider echo if not improving -Cont abx eye drops -Clarify what home medications pt is taking when more awake. UDS positive for several substances as above -Follow CBC, monitor for bleeding FEN/GI: NPO until more awake Proph DVT/GI: Lovenox Code status: DNR but OK with intubation Updated mother at bedside. She reports that pt does take ativan at home to help her sleep and may take additional doses. She also thinks she may be taking adderall but unsure. She does not believe pt takes any opiates or methadone (though has PRN tramadol listed in MAR) Critical Care Time: 50 mins The entirety of this encounter was done via telemedicine using both audio and video. Consent was obtained.
--- NOTE | 2024-08-05 09:06 | CT_ITS ---
PROCEDURE: CTA CHEST W/WO CONTRAST 08/05/2024 REASON FOR EXAM: ELEVATED D-DIMER TECHNIQUE: CTA axial imaging of the chest with intravenous contrast. Multiplanar and multisequence images were obtained. PATIENT PREPARATION: Per protocol CONTRAST: Omnipaque 350 VOLUME: 100 mL One or more dose reduction techniques were used (e.g., Automated exposure control, adjustment of the mA and/or kV according to patient size, use of iterative reconstruction technique). COMPARISON: None FINDINGS: Hardware: None Lymph nodes: No suspicious adenopathy. Heart: Mild cardiomegaly. Moderate coronary artery calcifications. No pericardial effusion. Thoracic Aorta: No thoracic aortic aneurysm or dissection. Pulmonary Vessels: No large central pulmonary emboli are identified. Contrast timing is suboptimal for evaluation of more distal branches. Most Proximal Level of Embolus (if embolus present): None Lungs and Airways: Central airways are patent without endobronchial lesions. Patchy opacities in the lung bases, compatible with atelectasis. Mild lower lobe interlobular septal thickening. No suspicious pulmonary nodules. No pneumothorax. No pleural effusion. Mediastinum: Thyroid gland is unremarkable. Small hiatal hernia. Upper Abdomen: Partially imaged simple left renal cyst. Bones: No acute osseous abnormality. Soft tissue: No focal soft tissue abnormality. CT/CTA Chest W/WO Contrast IMPRESSION: No evidence of pulmonary embolism or acute findings in the thorax. Mild bibasilar atelectasis Reading [facility]
[2024-08-05] MEDS: Lactated Ringers 1,000 ML 75 ML IV (09:50)
[2024-08-05] MEDS: Erythromycin Base 1 OPTH.TUBE 1 APPLIC OPHTHALMIC ×4 (09:50→20:48)
[2024-08-05] MEDS: LEVOTHYROXINE SODIUM 100 MCG VIAL IV (09:50)
[2024-08-05] MEDS: Enoxaparin 40 MG/0.4 ML Syringe SC ×2 (09:50→20:50)
[2024-08-05] MEDS: Ceftriaxone 1 GM/50 ML BAG IV (11:33)
[2024-08-05] MEDS: 0.9% Normal Saline (250mL Bag) 250 ML 15 ML IV (11:34)
[2024-08-05 12:00] LABS: Bedside Glucose 91 mg/dL (74-106)
--- NOTE | 2024-08-05 13:35 | PCM.PN.HOSP ---
Reason for Visit Reason for Visit: Diagnoses Myxedema coma (08/04/24) Other toxic encephalopathy (08/04/24) Acute respiratory failure with hypoxia (08/04/24) Chronic respiratory failure with hypercapnia (08/04/24) Acute kidney failure, unspecified (08/04/24) Bradycardia, unspecified (08/04/24) Patient's other noncompliance with medication regimen for other reason (08/04/24) Subjective Subjective Patient was seen and examined today, she appears to be sleepy and lethargic, she does respond to tactile stimulation, patient is confused however Objective Data Objective Data Vital Signs: Vital Signs Temp Pulse Resp BP Pulse Ox O2 Del Method O2 Flow Rate 97.4 F L 55 L 14 132/95 H 97 Bi-pap 2 08/05/24 08:00 08/05/24 13:15 08/05/24 13:15 08/05/24 12:00 08/05/24 12:00 08/05/24 12:00 08/05/24 00:00 FiO2 30 08/05/24 11:31 Oxygen Flow Rate (L/min) 2 Oxygen Delivery Method Bi-pap Weight: 131.769 kg Body Mass Index (BMI) 49.8 Intake & Output: Intake and Output for Last 24 Hours 08/03/24 08/04/24 08/05/24 23:59 23:59 23:59 Intake Total 1170 / 1410 1654.75 / 1654.75 Output Total 0 / 0 825 / 825 Balance 1170 / 1410 829.75 / 829.75 Lab / Micro Data 08/05/24 04:30 08/05/24 03:18 Labs: Laboratory Results - last 24 hr 08/04/24 14:14: POC Glucose 110 H 08/04/24 14:37: WBC 6.9, RBC 4.03 L, Hgb 12.2, Hct 39.4, MCV 97.8, MCH 30.3, MCHC 31.0 L, RDW Std Deviation 68.4 H, RDW Coeff of Alfredo 19.0 H, Plt Count 362, MPV 10.6, Sodium 139, Potassium 3.8, Chloride 102, Carbon Dioxide 24.8, Anion Gap 13, BUN 10, Creatinine 1.35 H, Estim Creat Clear Calc 63.33, Est GFR (MDRD) Non-Af 47 L, BUN/Creatinine Ratio 7.2 L, Glucose 113 H, Calcium 9.6, TSH 130.000 H, Total T3 < 0.20 L 08/04/24 15:00: NT pro BNP II 47 08/04/24 16:00: Free T4 < 0.11 L, Total T3 Cancelled, Cortisol AM Sample 18.40 08/04/24 18:14: POC Glucose 87 08/04/24 20:25: D-Dimer Quant (PE/DVT) 1.05 H*, Phosphorus Cancelled 08/04/24 20:25: Phosphorus 3.4, Magnesium Cancelled 08/04/24 20:25: Magnesium 2.5 H, Total Bilirubin Cancelled 08/04/24 20:25: Total Bilirubin 0.35, Direct Bilirubin Cancelled 08/04/24 20:25: Direct Bilirubin 0.15, AST Cancelled 08/04/24 20:25: AST 28, ALT Cancelled 08/04/24 20:25: ALT 12, Alkaline Phosphatase Cancelled 08/04/24 20:25: Alkaline Phosphatase 109 H, Ammonia 16.3, Troponin T High Sens 36 H D, Total Protein Cancelled 08/04/24 20:25: Total Protein 7.3, Albumin Cancelled 08/04/24 20:25: Albumin 3.9, Globulin Cancelled 08/04/24 20:25: Globulin 3.4 08/04/24 21:12: Lactic Acid 2.9 H* 08/04/24 22:39: POC Glucose 84 08/04/24 22:45: Troponin T Hi Sens 2 Hr 34 H 08/05/24 00:25: Troponin T Hi Sens 4Hr 35 H 08/05/24 03:18: Sodium 140, Potassium 3.9, Chloride 104, Carbon Dioxide 25.1, Anion Gap 11, BUN 9, Creatinine 1.18, Estim Creat Clear Calc 72.78, Est GFR (MDRD) Non-Af 55 L, BUN/Creatinine Ratio 7.4 L, Glucose 131 H, Lactic Acid 1.9, Calcium 9.2, Phosphorus 3.2, Magnesium 2.5 H, Total Bilirubin 0.35, AST 24, ALT 10, Alkaline Phosphatase 97, Total Protein 6.4, Albumin 3.6, Globulin 2.9, Albumin/Globulin Ratio 1.3 08/05/24 04:30: WBC 7.7, RBC 3.57 L, Hgb 10.9 L, Hct 35.0 L, MCV 98.0, MCH 30.5, MCHC 31.1 L, RDW Std Deviation 68.1 H, RDW Coeff of Alfredo 18.9 H, Plt Count 321, MPV 10.8, Immature Gran % (Auto) 0.400, Neut % (Auto) 62.1, Lymph % (Auto) 25.5, Barnes % (Auto) 8.0, Eos % (Auto) 3.0, Baso % (Auto) 1.0, Absolute Neuts (auto) 4.8, Absolute Lymphs (auto) 1.97, Nucleated RBC % 0, Anisocytosis 2+ 08/05/24 04:45: Urine Color Yellow, Urine Clarity Sl. Cloudy, Urine pH 5.0, Ur Specific Lamar 1.025, Urine Protein 30 H, Urine Glucose (UA) Normal, Urine Ketones Negative, Urine Occult Blood 50 H, Urine Nitrite Positive H, Urine Bilirubin Negative, Urine Urobilinogen Normal, Ur Leukocyte Esterase 500 H, Urine RBC 0-5 SEEN, Urine WBC 10-25 SEEN, Ur Squamous Epith Cells 0-5 SEEN, Urine Bacteria 1+, Hyaline Casts 0-5 SEEN, Urine Mucus 1+, Urine Opiates Screen Cancelled, U Buprenorphine Qual Cancelled, Ur Oxycodone Screen Cancelled, Urine Methadone Screen Cancelled, Urine Fentanyl Screen Cancelled, Ur Barbiturates Screen Cancelled, Ur Phencyclidine Scrn Cancelled, Ur Amphetamines Screen Cancelled, U Benzodiazepines Scrn Cancelled, Urine Cocaine Screen Cancelled, U Cannabinoids Screen Cancelled 08/05/24 04:50: Urine Opiates Screen NEGATIVE, U Buprenorphine Qual NEGATIVE, Ur Oxycodone Screen NEGATIVE, Urine Methadone Screen PRESUMPTIVE POSITIVE, Urine Fentanyl Screen NEGATIVE, Ur Barbiturates Screen NEGATIVE, Ur Phencyclidine Scrn NEGATIVE, Ur Amphetamines Screen PRESUMPTIVE POSITIVE, U Benzodiazepines Scrn PRESUMPTIVE POSITIVE, Urine Cocaine Screen NEGATIVE, U Cannabinoids Screen NEGATIVE 08/05/24 11:32: POC Glucose 91 Micro: Microbiology 08/04/24 15:52 Mucosa - Nasopharyngeal Respiratory Panel (PCR) - Final 08/04/24 15:44 Nasal Secretion SARS-CoV-2 Antigen (Rapid) - Final ABG Data ABG results: ABG 08/04/24 08/05/24 14:03 05:40 Specimen Type ART ART Sample Site L Radial L Radial pH 7.34 L 7.36 Bicarbonate Actual 28.2 H 28.7 H Total CO2 30 30 Base Excess 3 H 3 H O2 Saturation 87 L 91 L O2 % 21.0 30.0 ABG pCO2 51.8 H 51.2 H ABG pO2 57 L 66 L Justin Test Positive Positive Respiration Rate 12 O2 Delivery Device Room Air BiPAP Vent Mode Not entered Not entered POC PEEP 8 Peak Inspir Pressure 14 Radiography Diagnostic Testing: Radiology Impression Brain CT 08/04/24 13:37 IMPRESSION: No acute process identified Reading [facility] Chest X-Ray 08/04/24 20:15 IMPRESSION: No Acute Findings. Reading Location: [id number] Chest CTA 08/05/24 09:06 IMPRESSION: No evidence of pulmonary embolism or acute findings in the thorax. Mild bibasilar atelectasis Reading Location[facility] Physical Exam Const Constitutional Narrative: Patient is somnolent, she is confused, patient has class III obesity Orientation / Consciousness: confused HEENT head/scalp atraumatic Head and Scalp: normocephalic Eyes EOMs intact bilaterally and conjunctivae normal Neck no lymphadenopathy and no JVD Resp normal respiratory effort, no retractions, no use of accessory muscles and clear to auscultation bilaterally Cardio regular rate, regular rhythm, S1 normal heart sound and S2 normal heart sound GI normal to inspection, nondistended, normoactive bowel sounds, soft to palpation, non-tender and non-distended Extremity normal to inspection Neuro CN's II-XII intact bilaterally and moves all extremities Neuro Narrative: Patient is lethargic and somnolent, she is confused Psych Psych Narrative: Patient is confused Assessment & Plan Assessment/Plan (1) Myxedema coma: PLAN: Plan 1. Myxedema coma-continue IV Synthroid, continue supportive care #2 metabolic encephalopathy-secondary to urinary tract infection and myxedema coma-complicates care, management, recovery, and prognosis #3 acute cystitis-patient was placed on Rocephin today by critical care #4 class III obesity-complicates care, management, recovery, and prognosis #5 acute hypoxic respiratory failure-pulse ox will be monitored, patient at times will pull off her BiPAP #6 chronic obstructive pulmonary disease-continue aerosol treatments Total clinical time spent by myself addressing the patient's medical issues, reviewing all of her data, and collaborating with patient's care team: 35 minutes Charges/Coding Visit Charges Inpatient E&M: 52407 Subs Hosp L2
--- NOTE | 2024-08-05 14:08 | EKG12_ITS ---
Test Reason : vtach Blood Pressure : */* mmHG Vent. Rate : 72 BPM Atrial Rate : 72 BPM P-R Int : 156 ms QRS Dur : 86 ms QT Int : 386 ms P-R-T Axes : 84 49 221 degrees QTcB Int : 422 ms Sinus rhythm with occasional and consecutive Premature ventricular complexes and Fusion complexes Low voltage QRS Nonspecific ST and T wave abnormality Abnormal ECG When compared with ECG of 04-Aug-2024 13:53, MANUAL COMPARISON REQUIRED DATA IS UNCONFIRMED Confirmed by Wes Medeiros ([id number]), material expeditor SONJA ZBAALA ([id number]) on 08/06/2024 9:38:27 AM Referred By: Jcarlos Anthony Confirmed By: Wes Medeiros
[2024-08-05 16:32] LABS: Bedside Glucose 79 mg/dL (74-106)
[2024-08-05] MEDS: hydrOXYzine PAM 25 MG Capsule 50 MG PO ×2 (16:39→20:47)
[2024-08-05] MEDS: traMADol 50 MG Tablet 100 MG PO (17:44)
[2024-08-05] MEDS: Docusate Sodium 100 MG Capsule PO (20:48)
[2024-08-05 21:15] LABS: Bedside Glucose 95 mg/dL (74-106)
[2024-08-06] VITALS (21 sets, daily range): BP systolic 90–133; BP diastolic 59–102; PULSE 50–85; RESP 12–22; TEMP 36.5–37; O2SAT 92–99; BMI 49.6
[2024-08-06] MEDS: traMADol 50 MG Tablet 100 MG PO ×3 (00:30→22:51)
[2024-08-06] MEDS: Acetaminophen 325 MG Tablet 650 MG PO ×3 (03:43→20:35)
[2024-08-06 06:44] LABS: Bedside Glucose 93 mg/dL (74-106)
--- NOTE | 2024-08-06 07:01 | PN.CC_ITS ---
Assessment & Plan Assessment/Plan (1) Myxedema coma: (2) Toxic metabolic encephalopathy: (3) Noncompliance with medication regimen: PLAN: Plan RECOMMENDATIONS: 1. Continue Synthroid as ordered. 2. Continue bronchodilators. 3. Continue empiric antibiotics, pending urine culture results. 4. Continue PAP therapy with naps and nightly. 5. Follow-up with primary pulmonary provider, Dr. Randolph, after discharge. 6. The patient is medically stable for transfer out of the intensive care unit. Will sign off at this time. IMPRESSIONS: 1. Myxedema coma Most likely secondary to noncompliance with prescribed home medical therapy. The patient will be continued on IV Synthroid. Corticosteroids were not administered due to normal cortisol level. 2. History of COPD and obstructive sleep apnea on BiPAP Continue scheduled bronchodilator therapy along with BiPAP with naps and nightly. 3. Questionable UTI Continue antimicrobial therapy, pending urine culture results. 4. History of morbid obesity/diabetes mellitus/hypertension/history of CVA/anxiety/depression Complicates care, management, recovery and prognosis. Continue home medications as indicated. Encourage incentive spirometer use and mobilize patient as tolerated. This note was generated with [employer] dictation software. It may contain incorrect words, spelling, and punctuation that were not noted in checking the note before signing. Subjective Subjective The patient was seen and examined at the bedside this morning. Events from the last 24 hours have been reviewed. The patient is currently afebrile, hemodynamically stable and maintaining appropriate oxygen saturations on BiPAP. The patient reported the presence of a headache this morning. She is documented to be overall net +2.5 L for the hospitalization. The patient reported that she has a history of COPD and sleep apnea. She is followed on an outpatient basis by Dr. Bowden. Objective Data Objective Data The patient's most recent lab work, culture data and imaging studies have all been personally reviewed. Infectious workup has been unrevealing to date. Vital Signs: Vital Signs Temp Pulse Resp BP Pulse Ox O2 Del Method O2 Flow Rate 97.7 F L 56 L 18 91/62 97 Bi-pap 2 08/06/24 06:00 08/06/24 06:00 08/06/24 06:00 08/06/24 06:00 08/06/24 06:00 08/06/24 06:00 08/05/24 00:00 FiO2 30 08/06/24 05:18 Oxygen Flow Rate (L/min) 2 Oxygen Delivery Method Bi-pap Weight: 289 lb 3.2 oz Body Mass Index (BMI) 49.6 Intake & Output: Intake and Output for Last 24 Hours 08/04/24 08/05/24 08/06/24 23:59 23:59 23:59 Intake Total 1170 / 1410 1754.75 / 1754.75 870 / 870 Output Total 0 / 0 825 / 1175 500 / 500 Balance 1170 / 1410 929.75 / 579.75 370 / 370 Lab / Micro Data Attestation: I reviewed the patient's lab results. 08/05/24 04:30 08/05/24 03:18 Labs: Laboratory Results - last 24 hr 08/05/24 11:32: POC Glucose 91 08/05/24 16:12: POC Glucose 79 08/05/24 20:45: POC Glucose 95 08/06/24 05:00: Free T4 0.30 L 08/06/24 06:24: POC Glucose 93 Micro: Microbiology 08/04/24 15:52 Mucosa - Nasopharyngeal Respiratory Panel (PCR) - Final 08/04/24 15:44 Nasal Secretion SARS-CoV-2 Antigen (Rapid) - Final Radiography Diagnostic Testing: Radiology Impression Chest CTA 08/05/24 09:06 IMPRESSION: No evidence of pulmonary embolism or acute findings in the thorax. Mild bibasilar atelectasis Reading [facility] Physical Exam Const alert, oriented x3 and no apparent distress Constitutional Narrative: Morbidly obese with BiPAP in place. General Appearance: cooperative HEENT normocephalic and head/scalp atraumatic Eyes PERRL and EOMs intact bilaterally Neck supple General: trachea midline Chest inspection of chest normal Resp normal respiratory effort Auscultation: Negative for rales, rhonchi or wheezes Cardio S1 normal heart sound and S2 normal heart sound Rate: bradycardia GI normal to inspection, nondistended, normoactive bowel sounds Extremity no clubbing, cyanosis or edema Skin no rashes or lesions noted Neuro CN's II-XII intact bilaterally, moves all extremities and no focal motor deficits Psych Mood & Affect: flat affect Charges/Coding Visit Charges Inpatient E&M: 36372 Subs Hosp L2
[2024-08-06] MEDS: Albuterol 2.5 MG/3 ML VIAL.NEB. INHALATION ×3 (07:14→19:05)
[2024-08-06] MEDS: Budesonide Respules 0.5 MG/2 ML AMPUL.NEB. INHALATION ×2 (07:15→19:05)
[2024-08-06] MEDS: LEVOTHYROXINE SODIUM 100 MCG VIAL IV (11:06)
[2024-08-06] MEDS: Pantoprazole Sodium 40 MG in 0.9% Normal Saline (100mL MB+) 100 ML 330 MG IV ×2 (11:06→21:51)
[2024-08-06 11:40] LABS: Bedside Glucose 91 mg/dL (74-106)
[2024-08-06] MEDS: hydrOXYzine PAM 25 MG Capsule 50 MG PO ×3 (12:07→21:50)
[2024-08-06] MEDS: Docusate Sodium 100 MG Capsule PO ×2 (12:07→21:51)
[2024-08-06] MEDS: Enoxaparin 40 MG/0.4 ML Syringe SC ×2 (12:08→21:51)
[2024-08-06] MEDS: Erythromycin Base 1 OPTH.TUBE 1 APPLIC OPHTHALMIC ×4 (12:08→21:50)
[2024-08-06] MEDS: Ceftriaxone 1 GM/50 ML BAG IV (12:17)
--- NOTE | 2024-08-06 15:07 | CASEMGMT ---
Addendum entered by Goldy Gardner 08/06/24 15:51: Chandrika from [facility] reports that they are not in network with the pt's insurance any longer and they are unable to accept. This RN CM provided the pt with the HH list (See DPA note) at this time. Pt states that she does not have a specific preference and to send referrals to the higher rated agencies including [facility], [facility], and [facility]. DPA notified. CM to follow. Original Note: RN CM Assessment Face to Face with patient for initial transition planning/care coordination assessment. RN CM introduced self and role at [facility], pt voices understanding. Pt is A&Ox4 and is resting comfortably in bed and is calm. Care providers, pharmacy, and demographics verified. Admitting dx: Myxedema Coma. Pt states to this RN CM that she was taking her Synthroid as prescribed. LACE Strata: 4 PCP: Nasreen Sutton Specialists: Alec (Furnace Liner), Kal DUPREE (Pulmonary), Luisana (PM) Preferred Pharmacy: [facility] Insurance: [facility] MCR Dual, [facility]. Pt reports that she has a CM through the insurance but is unsure of who this is. Pt states that she has services including [employer], pvt duty aid, and medical alert system. Prescription Benefit: Yes LNOK: Elian (XH), Nadeen (Mother) Living Arrangements: Pt lives alone in a ground level apartment with a flat entrance ADLs/IADLs: Pt states that she is indep at baseline but is active with pvt duty aid for assistance. Pt reports that the aide comes q Tuesday, Tuesday, , and Tuesday for 3 hours. Pt also reports that her XH and mother are able to provide assistance Transportation: Self, XH, mother. Denies current concerns DME: CBGM and sensors. Backup BGM with sufficient supplies. Pen needles for insulin shots. BiPAP with no additional o2. Medical alert system. FWW. Cane. Shower chair. Grab bars. HHC/SNF: Reports hx with [facility] and the [address] Pt?s goal: Home with [facility]. Plan: Anticipate home with [facility] once medically ready. 6-Click score is 22. However, pt refused PT yesterday. Pt was able to get to the chair today with therapy. This RN CM encouraged the pt to ambulate further tomorrow to ensure safety going home at the time of DC. Pt states understanding. Pt currently denies SNF needs and wants HHC set up for the time of DC. Pt prefers [facility] again and denies wanting to review a list of options. TC to [facility] and referral made for SN, PT, and OT. Awaiting return response. CM to follow pt's progression in the hospital to ensure safe DC planning. Pt denies further questions or concerns at this time. CM to follow. Noris Gardner RN, CM
--- NOTE | 2024-08-06 15:43 | CASEMGMT ---
Discharge Planning A list of?HH providers including quality and resource use data and consistent with the patient's preferred geographic region, medical needs, and insurance network was created in [employer].? This list was provided to the RN MONE. Ena Kaur, Discharge Planning Asst.
--- NOTE | 2024-08-06 15:59 | CASEMGMT ---
Addendum entered by Ena Kaur 08/06/24 16:24: Lorri declined. INEZ SHORE updated. Ena Kaur DC Planning Asst. Addendum entered by Ena Kaur 08/06/24 16:17: Anabela declined. Ena Kaur DC Planning Asst. Addendum entered by Ena Kaur 08/06/24 16:10: Lili has accepted. Ena Kaur DC Planning Asst. Original Note: Discharge Planning HH referral sent to Lorri Peñaloza, and Lili. Ena Kaur DC Planning Asst.
[2024-08-06 16:09] LABS: Bedside Glucose 81 mg/dL (74-106)
--- NOTE | 2024-08-06 16:34 | CASEMGMT ---
See DC planning manager's note. RN CM to pt room at this time and notified that [facility] has accepted with SOC TBD. Pt states that she is agreeable and denies further questions or concerns at this time. CM to follow.
--- NOTE | 2024-08-06 19:06 | PCM.PN.HOSP ---
Reason for Visit Reason for Visit: Diagnoses Myxedema coma (08/04/24) Other toxic encephalopathy (08/04/24) Acute respiratory failure with hypoxia (08/04/24) Chronic respiratory failure with hypercapnia (08/04/24) Acute kidney failure, unspecified (08/04/24) Bradycardia, unspecified (08/04/24) Patient's other noncompliance with medication regimen for other reason (08/04/24) Subjective Subjective Patient was seen and examined today, she remains lethargic and sleeping with BiPAP on, she does not appear to be in any distress however. Objective Data Objective Data Vital Signs: Vital Signs Temp Pulse Resp BP Pulse Ox O2 Del Method O2 Flow Rate 98.6 F 64 22 H 122/78 H 95 Bi-pap 2 08/06/24 12:00 08/06/24 15:00 08/06/24 14:08 08/06/24 12:00 08/06/24 15:05 08/06/24 16:00 08/05/24 00:00 FiO2 30 08/06/24 11:04 Oxygen Flow Rate (L/min) 2 Oxygen Delivery Method Bi-pap Weight: 131.179 kg Body Mass Index (BMI) 49.6 Intake & Output: Intake and Output for Last 24 Hours 08/04/24 08/05/24 08/06/24 23:59 23:59 23:59 Intake Total 1170 / 1410 1754.75 / 1754.75 1620 / 1620 Output Total 0 / 0 825 / 1175 500 / 500 Balance 1170 / 1410 929.75 / 579.75 1120 / 1120 Lab / Micro Data 08/05/24 04:30 08/05/24 03:18 Labs: Laboratory Results - last 24 hr 08/05/24 20:45: POC Glucose 95 08/06/24 05:00: Free T4 0.30 L 08/06/24 06:24: POC Glucose 93 08/06/24 11:21: POC Glucose 91 08/06/24 15:39: POC Glucose 81 Micro: Microbiology 08/05/24 04:57 Urine Catheter - Cueto Urine Culture - Preliminary Gram negative annika 08/04/24 15:52 Mucosa - Nasopharyngeal Respiratory Panel (PCR) - Final 08/04/24 15:44 Nasal Secretion SARS-CoV-2 Antigen (Rapid) - Final Physical Exam Narrative Constitutional Narrative: Patient is somnolent, Orientation / Consciousness: Patient is lethargic HEENT head/scalp atraumatic Head and Scalp: normocephalic Eyes EOMs intact bilaterally and conjunctivae normal Neck no lymphadenopathy and no JVD Resp normal respiratory effort, no retractions, no use of accessory muscles and clear to auscultation bilaterally Cardio regular rate, regular rhythm, S1 normal heart sound and S2 normal heart sound GI normal to inspection, nondistended, normoactive bowel sounds, soft to palpation, non-tender and non-distended Extremity normal to inspection Neuro CN's II-XII intact bilaterally and moves all extremities Neuro Narrative: Patient is lethargic and somnolent Psych Psych Narrative: Patient is lethargic Assessment & Plan Assessment/Plan (1) Myxedema coma: PLAN: Plan 1. Myxedema coma-continue IV Synthroid, continue supportive care, Free T4 is improved #2 metabolic encephalopathy-secondary to urinary tract infection and myxedema coma-complicates care, management, recovery, and prognosis #3 acute [id number]-aofurnh has a gram-negative annika in the urine which has not been identified, she remains on Rocephin #4 class III obesity-complicates care, management, recovery, and prognosis #5 acute hypoxic respiratory failure-patient is now on room air while alert, she remains on BiPAP while sleeping #6 chronic obstructive pulmonary disease-continue aerosol treatments Total clinical time spent by myself addressing the patient's medical issues, reviewing all of her data, and collaborating with patient's care team: 35 minutes Charges/Coding Visit Charges Inpatient E&M: 38112 Subs Hosp L2
[2024-08-06 22:24] LABS: Bedside Glucose 111 mg/dL (74-106)
[2024-08-06] MEDS: Ondansetron 4 MG/2 ML Vial IV (22:51)
[2024-08-07] VITALS (7 sets, daily range): BP systolic 123–141; BP diastolic 70–97; PULSE 57–70; RESP 12–19; TEMP 36.4–37; O2SAT 93–99; BMI 50.3
--- NOTE | 2024-08-07 01:45 | CPS ---
Pt having difficulty tolerating BIPAP, doesn't want to wear it.
[2024-08-07] MEDS: hydrOXYzine PAM 25 MG Capsule 50 MG PO ×5 (02:05→21:05)
[2024-08-07] MEDS: Acetaminophen 325 MG Tablet 650 MG PO ×3 (02:42→21:37)
[2024-08-07 06:14] LABS: Bedside Glucose 72 mg/dL (74-106)
[2024-08-07] MEDS: traMADol 50 MG Tablet 100 MG PO ×2 (06:37→15:35)
[2024-08-07] MEDS: Budesonide Respules 0.5 MG/2 ML AMPUL.NEB. INHALATION (06:54)
[2024-08-07] MEDS: Albuterol 2.5 MG/3 ML VIAL.NEB. INHALATION ×2 (06:55→13:32)
[2024-08-07] MEDS: Erythromycin Base 1 OPTH.TUBE 1 APPLIC OPHTHALMIC ×4 (08:39→21:05)
[2024-08-07] MEDS: Enoxaparin 40 MG/0.4 ML Syringe SC ×2 (08:40→21:05)
[2024-08-07] MEDS: Docusate Sodium 100 MG Capsule PO ×2 (08:40→21:05)
[2024-08-07] MEDS: Pantoprazole Sodium 40 MG in 0.9% Normal Saline (100mL MB+) 100 ML 330 MG IV (08:47)
[2024-08-07] MEDS: Ceftriaxone 1 GM/50 ML BAG IV (09:39)
[2024-08-07] MEDS: LEVOTHYROXINE SODIUM 100 MCG VIAL IV (09:39)
--- NOTE | 2024-08-07 10:09 | CASEMGMT ---
This RN CM connected with the pt's [facility] CM (Shi @ [phone]) and updated the pt's CM on the pt's status and DC plan. Pt's CM confirms that the pt is active with pvt duty aid, [employer], and [facility].
[2024-08-07 11:33] LABS: Bedside Glucose 100 mg/dL (74-106)
--- NOTE | 2024-08-07 13:06 | CASEMGMT ---
Noted pt refused therapy today. Dr Page notified. The hospitalist states that the pt will likely DC today still. This account underwriter notified [facility] who reports that they can start care tomorrow, 08/08.
[2024-08-07] MEDS: Tamsulosin HCl 0.4 MG Capsule 0.8 MG PO (13:26)
--- NOTE | 2024-08-07 16:03 | CASEMGMT ---
Addendum entered by Goldy Gardner 08/07/24 16:26: Dr Page notifies this RNCM that the patient will not be discharging until tomorrow. [facility] notified via [facility] at this time. Original Note: Dr Page states that the pt will DC later today if she is able to void. TC to [facility] and notified of potential DC. If pt does DC today, SOC is tomorrow. [facility] gives this RN CM to fax the DC instructions to if the pt DC's after hours ([phone]). Pt's RN notified and green sheet provided.
[2024-08-07 17:04] LABS: Bedside Glucose 87 mg/dL (74-106)
[2024-08-07] MEDS: CARBOXYMETHYLCELLULOSE SODIUM 1 DRP DROPS 2 DRP OPHTHALMIC (17:06)
--- NOTE | 2024-08-07 18:20 | PCM.PN.HOSP ---
Reason for Visit Reason for Visit: Diagnoses Myxedema coma (08/04/24) Other toxic encephalopathy (08/04/24) Acute respiratory failure with hypoxia (08/04/24) Chronic respiratory failure with hypercapnia (08/04/24) Acute kidney failure, unspecified (08/04/24) Bradycardia, unspecified (08/04/24) Patient's other noncompliance with medication regimen for other reason (08/04/24) Subjective Subjective Patient was seen and examined today, she had no transportation to get home because her mother is currently ill. Patient appears to be stable enough for transfer to [facility] Objective Data Objective Data Vital Signs: Vital Signs Temp Pulse Resp BP Pulse Ox O2 Del Method O2 Flow Rate 98.6 F 59 L 14 141/80 H 95 Room Air 2 08/07/24 06:30 08/07/24 13:32 08/07/24 13:32 08/07/24 06:30 08/07/24 13:32 08/07/24 16:59 08/07/24 06:30 FiO2 30 08/07/24 13:32 Oxygen Flow Rate (L/min) 2 Oxygen Delivery Method Room Air Weight: 132.993 kg Body Mass Index (BMI) 50.3 Intake & Output: Intake and Output for Last 24 Hours 08/05/24 08/06/24 08/07/24 23:59 23:59 23:59 Intake Total 1754.75 / 1754.75 1720 / 1720 690 / 690 Output Total 825 / 1175 675 / 675 550 / 550 Balance 929.75 / 579.75 1045 / 1045 140 / 140 Lab / Micro Data 08/05/24 04:30 08/05/24 03:18 Labs: Laboratory Results - last 24 hr 08/06/24 21:57: POC Glucose 111 H 08/07/24 05:53: POC Glucose 72 L 08/07/24 11:11: POC Glucose 100 08/07/24 16:46: POC Glucose 87 Micro: Microbiology 08/05/24 04:57 Urine Catheter - Cueto Urine Culture - Final Pseudomonas aeruginosa 08/04/24 15:52 Mucosa - Nasopharyngeal Respiratory Panel (PCR) - Final 08/04/24 15:44 Nasal Secretion SARS-CoV-2 Antigen (Rapid) - Final Physical Exam Narrative Constitutional Narrative: Patient is alert Orientation / Consciousness: Patient is alert HEENT head/scalp atraumatic Head and Scalp: normocephalic Eyes EOMs intact bilaterally and conjunctivae normal Neck no lymphadenopathy and no JVD Resp normal respiratory effort, no retractions, no use of accessory muscles and clear to auscultation bilaterally Cardio regular rate, regular rhythm, S1 normal heart sound and S2 normal heart sound GI normal to inspection, nondistended, normoactive bowel sounds, soft to palpation, non-tender and non-distended Extremity normal to inspection Neuro CN's II-XII intact bilaterally and moves all extremities Neuro Narrative: Patient is alert and oriented x 2 Psych Psych Narrative: Patient is alert Assessment & Plan Assessment/Plan (1) Toxic metabolic encephalopathy: (2) Myxedema coma: PLAN: Plan 1. Myxedema coma-resolved, patient will be moved to [facility], she will be on oral Synthroid, I have elected to hold several of her medications for now and reassess them at the time of discharge #2 metabolic encephalopathy-secondary to myxedema coma-this has resolved #3 acute [id number] has Pseudomonas in the urine, she did not appear symptomatic, I elected to stop her Rocephin, the Rocephin does not treat Pseudomonas and she has been on it for 3 days #4 class III obesity-complicates care, management, recovery, and prognosis #5 acute hypoxic respiratory failure-patient is now on room air while alert, she remains on BiPAP while sleeping #6 chronic obstructive pulmonary disease-continue aerosol treatments Total clinical time spent by myself addressing the patient's medical issues, reviewing all of her data, and collaborating with patient's care team: 35 minutes Charges/Coding Visit Charges Inpatient E&M: 18475 Subs Hosp L2
[2024-08-07 22:13] LABS: Bedside Glucose 107 mg/dL (74-106)
[2024-08-08 00:06] VITALS: PULSE 66; RESP 12; RESP 15; O2SAT 99
[2024-08-08] MEDS: Albuterol 2.5 MG/3 ML VIAL.NEB. INHALATION ×2 (00:06→07:33)
[2024-08-08] MEDS: hydrOXYzine PAM 25 MG Capsule 50 MG PO ×3 (02:04→11:34)
[2024-08-08] MEDS: traMADol 50 MG Tablet 100 MG PO ×2 (02:20→08:55)
[2024-08-08 03:53] VITALS: BP 101/69; PULSE 72; RESP 16; TEMP 36.4; O2SAT 94
[2024-08-08 04:00] VITALS: BMI 50.1
[2024-08-08] MEDS: Levothyroxine 150 MCG Tablet PO (06:31)
[2024-08-08] MEDS: Acetaminophen 325 MG Tablet 650 MG PO ×2 (06:35→13:26)
[2024-08-08 06:53] LABS: Bedside Glucose 97 mg/dL (74-106)
[2024-08-08 07:33] VITALS: PULSE 65; RESP 17
[2024-08-08] MEDS: Budesonide Respules 0.5 MG/2 ML AMPUL.NEB. INHALATION (07:33)
[2024-08-08] MEDS: Docusate Sodium 100 MG Capsule PO (08:54)
[2024-08-08] MEDS: Enoxaparin 40 MG/0.4 ML Syringe SC (08:55)
[2024-08-08 09:15] VITALS: BP 119/73; PULSE 69; RESP 16; TEMP 36.7; O2SAT 92
[2024-08-08] MEDS: Ondansetron 8 MG Tablet PO (11:51)
--- NOTE | 2024-08-08 12:05 | CASEMGMT ---
Updated [facility] that plan is for pt to dc today [facility].
[2024-08-08 12:22] LABS: Bedside Glucose 94 mg/dL (74-106)
--- NOTE | 2024-08-08 14:07 | CASEMGMT ---
Addendum entered by Juana Ramirez 08/08/24 15:24: DC instructions sent to [facility] via [facility] at this time. Original Note: Hospitalist questioned if pt has transportation home. RN CM into pt room, pt states she does not. She states her mother just left. She states her ex is not available today. Pt states that she feels her balance is off. Pt just worked with therapy. Asked pt how she did and she states they just left, go ask them. Pt states she does not want to dc home. She is aware that [facility] will be in touch to see her. Spoke with therapy who states pt did not have any dizziness or LOB in treatment. Updated hospitalist. Hospitalist called pt ex who states that he can transport pt home. Plan to dc this date.
--- NOTE | 2024-08-08 14:08 | PCM.DC ---
Discharge Instructions Diet Discharge Diet: 1800 Calorie Control Diet DC O2, CPAP, BIPAP needs Home O2 Discharge instructions: Yes Type of respiratory needs?: BiPAP BiPAP instructions: BiPAP settings as above on 30% oxygen Dressing / Incision Discharge Activity: Return to Normal Activity Weight Bearing Status: Full weight bearing Follow Up Care Test Results: Test results from this visit will be discussed in further detail at your follow-up appointment, if applicable. Discharge Plan Admission Admit Date/Time: 08/04/24 15:53 Primary Reason for Your Visit: Myxedema coma, low thyroid Attending Provider: Manuel Driscoll Primary Care Provider: Nasreen Sutton Consulting Providers: Elda Mason Instructions Patient Instructions: Obesity and Its Impact on Health Discharge Orders/Prescriptions Prescriptions: New levothyroxine 150 mcg Tablet 150 mcg PO DAILY@0600 Qty: 30 0RF Continued carboxymethylcellulose sodium [Refresh Tears] 0.5 % Drops 2 drp RIGHT EYE Q1H PRN (Reason: DRY EYES) Qty: 0 0RF tramadol 50 mg tablet 50 mg PO TID PRN (Reason: pain) 3 Days Qty: 9 0RF atorvastatin 40 mg tablet 40 mg PO QHS Nurtec ODT 75 mg tablet,disintegrating 75 mg PO DAILY PRN (Reason: migraine) insulin lispro [Humalog KwikPen Insulin] 100 unit/mL Insulin Pen 1 sliding scale dose subcut [facility] Protocol: 2. Sliding Scale Insulin Low-Med Dosing Condition: 150-209 mg/dl = 1 unit Condition: 210-269 mg/dl = 2 units Condition: 270-329 mg/dl = 3 units Condition: 330-389 mg/dl = 4 units Condition: 390-449 mg/dl = 5 units Condition: Greater than 449 call physician Protocol Text: Suggested for: - Patients on Total Daily Insulin Dose of 28-36 units - Average body habitus patients LOW MEDIUM DOSING ALGORITHM Changed citalopram 20 mg Tablet 40 mg PO DAILY Qty: 1 0RF Discontinued budesonide-formoterol [Symbicort] 160-4.5 mcg/actuation HFA aerosol inhaler 2 puff INHALATION BID trazodone 150 mg tablet 150 mg PO QHS naratriptan 2.5 mg tablet 2.5 mg PO BID PRN (Reason: migraines) Rx Instructions: can repeat dose, two hours after first dose taken. do not exceed more than two doses in 24 hours. fluticasone propionate 50 mcg/actuation spray,suspension 2 spray INTRANASAL Q12H Patient Comments: [NO ORIGINAL SIG] levothyroxine 200 mcg tablet 200 mcg PO DAILY Patient Comments: PT STATES SHE TAKES BOTH 200MCG AND 25 MCG. erythromycin 5 mg/gram (0.5 %) ointment 1 applic ophthalmic (eye) 4X/DAY methenamine hippurate 1 gram tablet 1 g PO BID 30 Days Qty: 60 0RF ascorbic acid (vitamin C) [Vitamin C] 1,000 mg tablet 1 g PO DAILY Qty: 30 0RF carvedilol 6.25 mg Tablet 6.25 mg PO BID Qty: 0 0RF atenolol 25 mg tablet 25 mg PO DAILY fluoxetine 40 mg capsule 40 mg PO DAILY furosemide 40 mg tablet 40 mg PO DAILY levothyroxine 25 mcg tablet 25 mcg PO DAILY Patient Comments: PT STATES SHE TAKES BOTH 200MCG AND 25 MCG. metoclopramide HCl 10 mg tablet 10 mg PO TID Emgality Pen 120 mg/mL pen injector 120 mg SUBCUT Q30D Patient Comments: TAKES TOWARDS THE END OF THE MONTH gabapentin 300 mg capsule 300 mg PO TID ezetimibe [Zetia] 10 mg tablet 10 mg PO DAILY valsartan 160 mg tablet 160 mg PO BID Qty: 180 3RF isosorbide mononitrate 30 mg tablet extended release 24 hr 30 mg PO DAILY Qty: 30 11RF Referrals / Follow Up: Nasreen Sutton MD [Primary Care Provider] - Within 2 Weeks Disposition Disposition (needs filled in before D/C Order can be placed): Home Health Service
--- NOTE | 2024-08-08 15:15 | PCM.DC.SUM ---
Providers Date of Admission: 08/04/24 Date of Discharge: 08/08/24 Primary Care Physician: Nasreen Sutton MD Consultations 08/04/24 17:13 Consult: State Tested Nursing Assistant / Pulmonary Medicine Routine Consulting Provider: Intensivists/Pulmonary Med Reason for Consult: myxedema coma EMERGENT Consult: No MD Notified: Yes Date Notified: 08/04/24 Time Notified: 15:56 Method of Notification: Verbal Reason For Visit: MYXEDEMA COMA Diagnosis Discharge Diagnosis (1) Toxic metabolic encephalopathy: Status: Acute Code(s): G92.8 - Other toxic encephalopathy (2) Myxedema coma: Status: Acute Code(s): E03.5 - Myxedema coma Plan 1. Myxedema coma-resolved, patient will be moved to [facility], she will be on oral Synthroid, I have elected to hold several of her medications for now and reassess them at the time of discharge #2 metabolic encephalopathy-secondary to myxedema coma-this has resolved #3 acute oijxaghl-zatkoeq-xpkebmj has Pseudomonas in the urine, she did not appear symptomatic, I elected to stop her Rocephin, the Rocephin does not treat Pseudomonas and she has been on it for 3 days #4 class III obesity-complicates care, management, recovery, and prognosis #5 acute hypoxic respiratory failure-patient is now on room air while alert, she remains on BiPAP while sleeping #6 chronic obstructive pulmonary disease-continue aerosol treatments #7 noncompliance with outpatient medications Total clinical time spent by myself addressing the patient's medical issues, reviewing all of her data, and collaborating with patient's care team: 35 minutes Medications at Discharge Home Medications carboxymethylcellulose sodium 0.5 % eye drops (Refresh Tears) 2 drp RIGHT EYE Q1H PRN DRY EYES #0 mL 05/11/24 tramadol 50 mg tablet 50 mg PO TID PRN pain 3 days #9 tabs 05/11/24 atorvastatin 40 mg tablet 40 mg PO QHS cholestrol 06/27/24 insulin lispro 100 unit/mL subcutaneous pen (Humalog KwikPen (U-100) Insulin) 1 sliding scale dose subcut ACHS diabetes 06/27/24 rimegepant 75 mg disintegrating tablet (Nurtec ODT) 75 mg PO DAILY PRN migraine 06/27/24 citalopram 20 mg tablet 40 mg (2 x 20 mg) PO DAILY depression #1 TAB 08/08/24 levothyroxine 150 mcg tablet 150 mcg PO DAILY@0600 #30 tabs 08/08/24 Hospital Course Operations None Procedures None Summary of Care Provided Minutes Spent on Discharge: 32 Hospital Course: This 54-year-old white female was seen in the emergency room at [facility] after being brought in due to generalized weakness and somnolence. Workup in the emergency room included a TSH which was highly elevated at 130 indicating hypothyroidism. Patient was also noted to have combined respiratory failure and was placed on BiPAP. Labs showed an elevated creatinine of 1.35, patient's CBC was unremarkable. Patient was admitted to ICU and given IV Synthroid and pulse ox was monitored, patient was finally able to come off BiPAP except for naps. Although patient stated she was taking her medications properly, it was obvious that the patient was noncompliant. On 08/08/2024, patient was seen and examined:Constitutional Narrative: Patient is alert Orientation / Consciousness: Patient is alert HEENT head/scalp atraumatic Head and Scalp: normocephalic Eyes EOMs intact bilaterally and conjunctivae normal Neck no lymphadenopathy and no JVD Resp normal respiratory effort, no retractions, no use of accessory muscles and clear to auscultation bilaterally Cardio regular rate, regular rhythm, S1 normal heart sound and S2 normal heart sound GI normal to inspection, nondistended, normoactive bowel sounds, soft to palpation, non-tender and non-distended Extremity normal to inspection Neuro CN's II-XII intact bilaterally and moves all extremities Neuro Narrative: Patient is alert and oriented x 2 Psych Psych Narrative: Patient is alert Patient was discharged home in stable condition on 08/08/2024 Weight / BMI Weight Weight: 132.5 kg Body Mass Index (BMI) 50.1 ABG / Lab / Microbiology Data 08/05/24 04:30 08/05/24 03:18 Laboratory: Laboratory Results - last 24 hr 08/07/24 16:46: POC Glucose 87 08/07/24 21:09: POC Glucose 107 H 08/08/24 06:33: POC Glucose 97 08/08/24 11:58: POC Glucose 94 Microbiology: Microbiology 08/05/24 04:57 Urine Catheter - Cueto Urine Culture - Final Pseudomonas aeruginosa 08/04/24 15:52 Mucosa - Nasopharyngeal Respiratory Panel (PCR) - Final 08/04/24 15:44 Nasal Secretion SARS-CoV-2 Antigen (Rapid) - Final D/C Instructions Discharge Diet: 1800 Calorie Control Diet Weight Bearing Status: Full weight bearing DC O2, CPAP, BIPAP Needs Home O2 Discharge instructions: Yes Type of respiratory needs?: BiPAP BiPAP instructions: BiPAP settings as above on 30% oxygen DC home with Oxygen: Yes Home O2 MD Review: I have reviewed the oxygen testing, and the patient qualifies for home oxygen equipment and portability. The patient is mobile in the home and the community. Meaningful Use Info Meaningful Use Meaningful Use Diagnoses (Choose all that apply): None applicable Ischemic Stroke Statin Dosing Therapy Reference: STATIN DOSE THERAPY REFERENCE: * Patients > 75 years receive moderate or high dose statin therapy. * Patients 75 years or YOUNGER should receive HIGH intensity statin dose unless contraindicated. You will be required to document reason for non-treatment if statin daily dose does not meet guidelines. HIGH DOSE STATIN THERAPY DAILY Atorvastatin > than or = to 40 mg Rosuvastatin > than or = to 20 mg Amlodipine + Atorvastatin > than or = to 2.5/40 mg Ezetimibe + Simvastatin 10/80 mg Simvastatin 80mg Discharge Plan Admission Admit Date/Time: 08/04/24 15:53 Primary Reason for Your Visit: Myxedema coma, low thyroid Attending Provider: Manuel Driscoll Primary Care Provider: Nasreen Sutton Consulting Providers: Elda Mason Instructions Patient Instructions: Obesity and Its Impact on Health Discharge Orders/Prescriptions Prescriptions: New levothyroxine 150 mcg Tablet 150 mcg PO DAILY@0600 Qty: 30 0RF Continued carboxymethylcellulose sodium [Refresh Tears] 0.5 % Drops 2 drp RIGHT EYE Q1H PRN (Reason: DRY EYES) Qty: 0 0RF tramadol 50 mg tablet 50 mg PO TID PRN (Reason: pain) 3 Days Qty: 9 0RF atorvastatin 40 mg tablet 40 mg PO QHS Nurtec ODT 75 mg tablet,disintegrating 75 mg PO DAILY PRN (Reason: migraine) insulin lispro [Humalog KwikPen Insulin] 100 unit/mL Insulin Pen 1 sliding scale dose subcut ACHS Protocol: 2. Sliding Scale Insulin Low-Med Dosing Condition: 150-209 mg/dl = 1 unit Condition: 210-269 mg/dl = 2 units Condition: 270-329 mg/dl = 3 units Condition: 330-389 mg/dl = 4 units Condition: 390-449 mg/dl = 5 units Condition: Greater than 449 call physician Protocol Text: Suggested for: - Patients on Total Daily Insulin Dose of 28-36 units - Average body habitus patients LOW MEDIUM DOSING ALGORITHM Changed citalopram 20 mg Tablet 40 mg PO DAILY Qty: 1 0RF Discontinued budesonide-formoterol [Symbicort] 160-4.5 mcg/actuation HFA aerosol inhaler 2 puff INHALATION BID trazodone 150 mg tablet 150 mg PO QHS naratriptan 2.5 mg tablet 2.5 mg PO BID PRN (Reason: migraines) Rx Instructions: can repeat dose, two hours after first dose taken. do not exceed more than two doses in 24 hours. fluticasone propionate 50 mcg/actuation spray,suspension 2 spray INTRANASAL Q12H Patient Comments: [NO ORIGINAL SIG] levothyroxine 200 mcg tablet 200 mcg PO DAILY Patient Comments: PT STATES SHE TAKES BOTH 200MCG AND 25 MCG. erythromycin 5 mg/gram (0.5 %) ointment 1 applic ophthalmic (eye) 4X/DAY methenamine hippurate 1 gram tablet 1 g PO BID 30 Days Qty: 60 0RF ascorbic acid (vitamin C) [Vitamin C] 1,000 mg tablet 1 g PO DAILY Qty: 30 0RF carvedilol 6.25 mg Tablet 6.25 mg PO BID Qty: 0 0RF atenolol 25 mg tablet 25 mg PO DAILY fluoxetine 40 mg capsule 40 mg PO DAILY furosemide 40 mg tablet 40 mg PO DAILY levothyroxine 25 mcg tablet 25 mcg PO DAILY Patient Comments: PT STATES SHE TAKES BOTH 200MCG AND 25 MCG. metoclopramide HCl 10 mg tablet 10 mg PO TID Emgality Pen 120 mg/mL pen injector 120 mg SUBCUT Q30D Patient Comments: TAKES TOWARDS THE END OF THE MONTH gabapentin 300 mg capsule 300 mg PO TID ezetimibe [Zetia] 10 mg tablet 10 mg PO DAILY valsartan 160 mg tablet 160 mg PO BID Qty: 180 3RF isosorbide mononitrate 30 mg tablet extended release 24 hr 30 mg PO DAILY Qty: 30 11RF Referrals / Follow Up: Nasreen Sutton MD [Primary Care Provider] - 08/23/24 11:20 am Disposition Disposition (needs filled in before D/C Order can be placed): Home Health Service Charges/Coding Visit Charges Inpatient E&M: 62755 Disch Hosp >30min
[2024-08-08 16:45] VITALS: BP 145/95; PULSE 63; RESP 16; TEMP 37.3; O2SAT 97
== END 2024-08-08 16:42 | disposition home health service (06) | DRG 80 ==
LOC: ED 16:03 → ICU 16:19 → MS3 08-07 18:39
PROVIDERS: Internal Medicine; Internal Medicine Pulmonary Disease; Admitting Provider Internal Medicine; Emergency Provider Emergency Medicine; PCP Family Medicine; Referring Provider Emergency Medicine; Visit Provider Internal Medicine
DX: E03.5 Myxedema coma (principal); G92.8 Other toxic encephalopathy; J96.01 Acute respiratory failure with hypoxia; J96.12 Chronic respiratory failure with hypercapnia; E66.2 Morbid (severe) obesity with alveolar hypoventilation; E87.20 Acidosis, unspecified; N17.9 Acute kidney failure, unspecified; Z68.42 Body mass index [BMI] 45.0-49.9, adult; N30.00 Acute cystitis without hematuria; B96.5 Pseudomonas (aeruginosa) (mallei) (pseudomallei) as the cause of diseases classified elsewhere; E11.40 Type 2 diabetes mellitus with diabetic neuropathy, unspecified; J44.9 Chronic obstructive pulmonary disease, unspecified; F32.A Depression, unspecified; I12.9 Hypertensive chronic kidney disease with stage 1 through stage 4 chronic kidney disease, or unspecified chronic kidney disease; N18.9 Chronic kidney disease, unspecified; E03.9 Hypothyroidism, unspecified; F41.9 Anxiety disorder, unspecified; E78.00 Pure hypercholesterolemia, unspecified; I25.10 Atherosclerotic heart disease of native coronary artery without angina pectoris; E11.22 Type 2 diabetes mellitus with diabetic chronic kidney disease; Z79.4 Long term (current) use of insulin; K21.9 Gastro-esophageal reflux disease without esophagitis; Z66 Do not resuscitate; E66.813 Obesity, class 3; G89.29 Other chronic pain; Z79.51 Long term (current) use of inhaled steroids; Z79.891 Long term (current) use of opiate analgesic; Z86.73 Personal history of transient ischemic attack (TIA), and cerebral infarction without residual deficits; Z79.1 Long term (current) use of non-steroidal anti-inflammatories (NSAID); Z82.49 Family history of ischemic heart disease and other diseases of the circulatory system; Z79.82 Long term (current) use of aspirin; Z91.148 Patient's other noncompliance with medication regimen for other reason; Z99.89 Dependence on other enabling machines and devices; R29.6 Repeated falls
CPT/HCPCS: 36600; 70450; 71045; 71275; 80048; 80053; 80076; 80307; 81001; 82140; 82533; 82803; 82962; 83605; 83735; 83880; 84100; 84439; 84443; 84480; 84484; 85025; 85027; 85379; 87077; 87086; 87088; 87184; 87186; 87633; 87811; 93005; 94002; 94003; 94640; 94762; 97162; 97166; 97530; 97535; 97802; 99284; Q9967; A4216; J2405

== ENCOUNTER 2024-08-22 09:40 | Emergency (ER) | payer MEDICARE, MEDICAID, SELFPAY ==
[2024-08-22] VITALS (32 sets, daily range): BP systolic 113–189; BP diastolic 70–114; PULSE 41–80; RESP 9–22; TEMP 36.6–36.9; O2SAT 93–100; BMI 48.8
--- NOTE | 2024-08-22 10:14 | EKG12_ITS ---
Test Reason : HEADACHE Blood Pressure : */* mmHG Vent. Rate : 91 BPM Atrial Rate : 91 BPM P-R Int : 140 ms QRS Dur : 80 ms QT Int : 380 ms P-R-T Axes : * 180 -50 degrees QTcB Int : 467 ms Normal sinus rhythm Lateral infarct , age undetermined ST & T wave abnormality, consider anterior ischemia Abnormal ECG Confirmed by MIGUEL GONZALEZ, MAGALI ([id number]), film or videotape editor ZANDER MAYER ([id number]) on 08/29/2024 1:42:06 PM Referred By: Confirmed By: MAGALI RIVERA MD
--- NOTE | 2024-08-22 10:15 | RAD_ITS ---
PROCEDURE: CHEST PA AND LATERAL 08/22/2024 REASON FOR EXAM: SOB TECHNIQUE: CHEST PA AND LATERAL COMPARISON: Prior study dated August 04, 2024. FINDINGS: Hardware: EKG electrodes are seen. Heart: Cardiomegaly. Mediastinum: Unremarkable Lungs: Elevation of the right hemidiaphragm. No acute abnormality is seen. Bones: The bones are unremarkable. RAD/Chest PA and Lateral IMPRESSION: Elevation of the right hemidiaphragm. No acute abnormality is seen. Reading Location: [id number]
--- NOTE | 2024-08-22 10:36 | EX.ED.DYSGE1 ---
HPI History of Present Illness Chief Complaint: Shortness of Breath Narrative Narrative: Patient is a 54-year-old female with a past medical history of hypothyroidism, myxedema coma, DVT, COPD, vitamin B12 deficiency, iron deficiency anemia, chronic kidney disease GERD, hypertension who presented to the emergency department chief complaint shortness of breath and right eye pain. States that her right eye pain has been going on for at least 6 months now and she states that she is been to multiple places for this and people cannot figure out what is going on with her eye. She states that last night she developed shortness of breath while sitting down she states that nothing really makes this better or worse. Patient denies coughing denies any chest pain. Patient denies recent travel history. [facility] Medical History Toxic metabolic encephalopathy MARYANA (acute kidney injury) Noncompliance with medication regimen Acute hypoxic on chronic hypercapnic respiratory failure Myxedema coma Elevated serum creatinine Sinus bradycardia on ECG Kidney failure MARYANA (acute kidney injury) Fatigue MARYANA (acute kidney injury) Walker as ambulation aid Ambulates with cane Low iron History of renal disease High cholesterol DVT (deep venous thrombosis) PONV (postoperative nausea and vomiting) Stroke/cerebrovascular accident Sleep apnea Fall Cardiology follow-up encounter Scalp hematoma Pulmonary embolism Post-menopausal Thyroid disease Injury of head and neck Dietary restriction Difficulty swallowing BiPAP (biphasic positive airway pressure) dependence COPD (chronic obstructive pulmonary disease) Shortness of breath on exertion Leg cramps History of pain when walking History of edema History of echocardiogram History of stress test Syncope Abnormal glucose Noncompliance DAVY treated with BiPAP UTI (urinary tract infection) Vitamin D deficiency Restless leg syndrome Vitamin B12 deficiency Iron deficiency anemia History of chronic back pain Wears glasses Arthritis Non-smoker Hydronephrosis Depression Anemia Migraine headache Chronic kidney disease Diabetes mellitus Gout Celiac disease Hyperlipidemia GERD (gastroesophageal reflux disease) Dyspnea on exertion Chest pain Hypersomnia Cardiac murmur Microcytic anemia Hypertension Morbid obesity with BMI of 40.0-44.9, adult Asthma Hypothyroidism Anxiety Home Medications ?Medication ?Instructions ?Recorded ?Last Taken ?Type carboxymethylcellulose sodium 0.5 2 drp RIGHT EYE Q1H PRN DRY EYES 05/11/24 06/27/24 Rx % eye drops (Refresh Tears) #0 mL tramadol 50 mg tablet 50 mg PO TID PRN pain 3 days #9 05/11/24 06/27/24 Rx tabs atorvastatin 40 mg tablet 40 mg PO QHS cholestrol 06/27/24 06/26/24 History insulin lispro 100 unit/mL 1 sliding scale dose subcut ACHS 06/27/24 06/27/24 History subcutaneous pen (Humalog KwikPen diabetes (U-100) Insulin) rimegepant 75 mg disintegrating 75 mg PO DAILY PRN migraine 06/27/24 Unknown History tablet (Nurtec ODT) citalopram 20 mg tablet 40 mg (2 x 20 mg) PO DAILY 08/08/24 06/27/24 Rx depression #1 TAB levothyroxine 150 mcg tablet 150 mcg PO DAILY@0600 #30 tabs 08/08/24 Unknown Rx Allergy/AdvReac Type Severity Reaction Status Date / Time hydrochlorothiazide AdvReac Intermediate Contributes Verified 08/04/24 13:29 to gout naproxen (From Naprosyn) AdvReac Intermediate Nausea Verified 08/04/24 13:29 aspirin AdvReac Nausea Verified 08/04/24 13:29 Penicillins AdvReac Other Verified 08/04/24 13:29 Family History Father , Age 72 Hypertension Mother CAD (coronary artery disease) Myocardial infarction, Onset Age: 55 Hypertension Sister CAD (coronary artery disease) Brother Cancer Surgical History History of cardiac catheterization History of History of carpal tunnel surgery of right wrist History of carpal tunnel surgery of left wrist Hx of cystoscopy History of left heart catheterization (11/11/20) history of uterine ablation Social History household members: spouse housing: apartment Smoking Status: Never smoker alcohol intake: never substance use type: does not use caffeine: No ROS ROS ED ROS Narrative Constitutional: Denies fevers, chills, headaches Eyes: Complains of right eye pain as noted above with decreased vision which has once again been going on for at least 6 months she states Cardiovascular: Denies chest pain or palpitations Respiratory: Complains shortness of breath as noted above denies coughing Abdomen: Denies abdominal pain nausea vomit diarrhea : Denies urinary symptoms Neurological: Denies numbness, wheeze, tingling Musculoskeletal: Denies back pain Skin: Denies any rashes or lesions EXAM Physical Exam Narrative Exam Narrative: General: Patient was lying in bed rest comfortably did not appear to be in acute distress Head: Atraumatic, normocephalic Eyes: Patient's upper eyelid is swollen and everted on exam her right eye is red and she has corneal haziness noted on the right eye as well, left eye no conjunctival injection noted, EOMI noted, PERRL on the left side. Neck: Soft, supple, trachea midline Cardiovascular: Regular rate and rhythm Respiratory: Clear to auscultation bilaterally Extremities: +5/5 strength noted in the bilateral upper and lower extremities Neurological: Patient following commands knew that she was at [facility] year is 2024 Skin: Warm, dry, tact no rashes or lesions noted Const Vital Signs: 08/22/24 09:40 08/22/24 10:14 08/22/24 11:00 Temperature 98.4 F Temperature Source Temporal Pulse Rate 65 56 L Respiratory Rate 14 19 H Respiratory Effort Respiratory Depth Respiratory Pattern Blood Pressure 143/105 H 162/101 H Blood Pressure Mean 117 120 Pulse Ox 100 99 Oxygen Delivery Method Room Air Room Air 08/22/24 11:08 08/22/24 11:15 08/22/24 11:19 Temperature Temperature Source Pulse Rate 44 L 59 L Respiratory Rate 19 H 18 Respiratory Effort Respiratory Depth Respiratory Pattern Blood Pressure 162/101 H 162/106 H Blood Pressure Mean 121 124 Pulse Ox 97 98 Oxygen Delivery Method Room Air 08/22/24 11:30 08/22/24 11:45 08/22/24 12:00 Temperature Temperature Source Pulse Rate 59 L 55 L 47 L Respiratory Rate 15 17 13 Respiratory Effort Respiratory Depth Respiratory Pattern Blood Pressure 139/87 H 158/113 H 179/113 H Blood Pressure Mean 103 124 132 Pulse Ox 99 100 100 Oxygen Delivery Method Room Air Room Air 08/22/24 12:15 08/22/24 12:16 08/22/24 12:27 Temperature Temperature Source Pulse Rate 64 Respiratory Rate 15 Respiratory Effort Normal Respiratory Depth Normal Respiratory Pattern Tachypnea Blood Pressure 113/100 H Blood Pressure Mean 106 Pulse Ox 98 Oxygen Delivery Method 08/22/24 12:30 08/22/24 12:45 08/22/24 13:00 Temperature Temperature Source Pulse Rate 62 41 L 49 L Respiratory Rate 21 H 13 9 L Respiratory Effort Respiratory Depth Respiratory Pattern Blood Pressure 128/105 H 162/100 H 189/97 H Blood Pressure Mean 114 118 122 Pulse Ox 100 98 Oxygen Delivery Method Room Air 08/22/24 13:06 08/22/24 13:15 08/22/24 13:30 Temperature Temperature Source Pulse Rate 67 58 L Respiratory Rate 22 H 17 Respiratory Effort Respiratory Depth Respiratory Pattern Blood Pressure 182/113 H 181/107 H Blood Pressure Mean 134 129 Pulse Ox 99 100 Oxygen Delivery Method 08/22/24 13:31 08/22/24 13:45 08/22/24 14:00 Temperature Temperature Source Pulse Rate 68 57 L 43 L Respiratory Rate 15 16 21 H Respiratory Effort Respiratory Depth Respiratory Pattern Blood Pressure 166/98 H Blood Pressure Mean 115 Pulse Ox 99 Oxygen Delivery Method Room Air 08/22/24 14:15 08/22/24 14:27 08/22/24 14:30 Temperature Temperature Source Pulse Rate 43 L 53 L 67 Respiratory Rate 14 21 H 17 Respiratory Effort Respiratory Depth Respiratory Pattern Blood Pressure 160/114 H Blood Pressure Mean 129 Pulse Ox Oxygen Delivery Method 08/22/24 14:45 08/22/24 15:00 Temperature Temperature Source Pulse Rate 66 62 Respiratory Rate 15 12 Respiratory Effort Respiratory Depth Respiratory Pattern Blood Pressure 143/99 H 153/97 H Blood Pressure Mean 111 112 Pulse Ox 94 98 Oxygen Delivery Method Room Air Room Air MDM MDM MDM Narrative Medical decision making narrative: Patient is a 54-year-old female who presents to the emergency department chief complaint of shortness of breath and right eye pain. On the differential diagnosis includes but not limited to CHF, ACS, COPD exacerbation, ACS, acute angle-closure glaucoma. Once workup is obtained reviewed she will be reevaluated. Patient have eye exam performed. Patient's CBC was reviewed showed no evidence of cytosis white blood count normal at 10.4, he was 10.5, plate count normal 357. Patient's sodium normal 141, potassium 3.2, creatinine was noted to be 0.86. Patient's troponin was 21 with a delta troponin of 19. Patient's EKG was reviewed and showed sinus rhythm rate of 62 bpm. Patient's proBNP normal at 350. Patient's chest x-ray reviewed by myself and by radiology which showed elevation of right hemidiaphragm no other acute cardiopulmonary processes. Patient ambulated well here in the emergency department no tachycardia no hypoxia. Patient had a eye exam performed here in the emergency department she had fluorescein uptake in the center of her cornea where her known ulcer is her intraocular pressure average was noted to be 21. Her visual acuity was documented. I reached out to [facility] and spoke with Dr. Matamoros and he states that this is a well-known patient to them and states that she is not compliant with her medications and she has been referred to a corneal specialist and that she needs to be following up with him. He states that if he cannot get her into the office then she should be following up with them by the end of the week. 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 He states that this is not a surgical emergency. I discussed this plan with the patient and she is agreeable with this plan all question concerns answered she was discharged home in stable condition. Lab Data Labs: Laboratory Results - last 24 hr 08/22/24 08/22/24 11:03 13:03 WBC 10.4 RBC 3.45 L Hgb 10.5 L Hct 32.3 L MCV 93.6 MCH 30.4 MCHC 32.5 RDW Std Deviation 63.8 H RDW Coeff of Alfredo 18.6 H Plt Count 357 MPV 9.8 Immature Gran % (Auto) 0.500 Neut % (Auto) 74.2 H Lymph % (Auto) 16.4 L [place] % (Auto) 6.9 Eos % (Auto) 1.5 Baso % (Auto) 0.5 Absolute Neuts (auto) 7.7 Absolute Lymphs (auto) 1.70 Nucleated RBC % 0 Sodium 141 Potassium 3.2 L Chloride 104 Carbon Dioxide 24.7 Anion Gap 12 BUN 9 Creatinine 0.86 Estim Creat Clear Calc 99.71 Est GFR (MDRD) Non-Af 80 BUN/Creatinine Ratio 10.2 Glucose 121 H Calcium 8.8 Troponin T High Sens 21 H D Troponin T Hi Sens 2 Hr 19 H NT pro BNP II 350 Radiography Diagnostic Testing: Clinical Impression(s) from Imaging Studies Chest X-Ray 08/22/24 10:15 IMPRESSION: Elevation of the right hemidiaphragm. No acute abnormality is seen. Reading Location: [facility] Discharge Plan Triage Chief Complaint: Shortness of Breath ED Provider: Toney Venegas Dx/Rx/DC Orders Clinical Impression: Chest pain, Blind painful right eye, Corneal ulcer Prescriptions: No Action carboxymethylcellulose sodium [Refresh Tears] 0.5 % Drops 2 drp RIGHT EYE Q1H PRN (Reason: DRY EYES) Qty: 0 0RF tramadol 50 mg tablet 50 mg PO TID PRN (Reason: pain) 3 Days Qty: 9 0RF atorvastatin 40 mg tablet 40 mg PO QHS Nurtec ODT 75 mg tablet,disintegrating 75 mg PO DAILY PRN (Reason: migraine) insulin lispro [Humalog KwikPen Insulin] 100 unit/mL Insulin Pen 1 sliding scale dose subcut ACHS Protocol: 2. Sliding Scale Insulin Low-Med Dosing Condition: 150-209 mg/dl = 1 unit Condition: 210-269 mg/dl = 2 units Condition: 270-329 mg/dl = 3 units Condition: 330-389 mg/dl = 4 units Condition: 390-449 mg/dl = 5 units Condition: Greater than 449 call physician Protocol Text: Suggested for: - Patients on Total Daily Insulin Dose of 28-36 units - Average body habitus patients LOW MEDIUM DOSING ALGORITHM levothyroxine 150 mcg Tablet 150 mcg PO DAILY@0600 Qty: 30 0RF citalopram 20 mg Tablet 40 mg PO DAILY Qty: 1 0RF Primary Care Provider: Nasreen Sutton Referrals: Nasreen Sutton MD [Primary Care Provider] - Activity Restrictions/Additional Instructions: Follow-up with your physician that you referred to by the [facility] for the corneal specialist Dr. Penaloza if they cannot get you in to be evaluated by the end of the week call [facility] for an appointment. Print Language: Uzbek Disposition Disposition: Home, Self Care
[2024-08-22] MEDS: 0.9% Normal Saline (1000mL) 1,000 ML 999 ML IV (10:50)
[2024-08-22] MEDS: Fluorescein 1 MG STRIP 1 STRIP LEFT EYE (10:50)
[2024-08-22] MEDS: Tetracaine 0.5% Ophthalmic Bottle 1 DRP LEFT EYE (10:50)
[2024-08-22 11:20] LABS: Absolute Neutrophil Count 7.7 X10^3/uL (2.0-7.7); Basophil# 0.05 X10^3/uL; Basophil% 0.5 % (0-1); Eosinophil# 0.16 X10^3/uL; Eosinophils% 1.5 % (0-5); Hematocrit 32.3 % (37-47); Hemoglobin 10.5 g/dL (12.0-15.0); Lymphocyte % 16.4 % (19-41); Mean Corp Hgb Conc 32.5 g/dL (32-36); Mean Corpuscular Hgb 30.4 pg (27.0-32.0); Mean Corpuscular Volume 93.6 fL (81-99); Mean Platelet Vol. 9.8 fl (6.2-12.0); Monocyte# 0.72 X10^3/uL; Monocyte% 6.9 % (0-10); NRBC Flagged by Analyzer 0 % (0-5); Neutrophil # 7.68 X10^3/uL (2.7-7.7); Neutrophil % 74.2 % (47-70); Platelet Count 357 K/mm3 (150-450); RBC Distribution Width CV 18.6 % (11.6-14.6); RBC Distribution Width SD 63.8 fl (35.1-43.9); Red Blood Count 3.45 M/mm3 (4.2-5.4); White Blood Count 10.4 K/mm3 (4.4-11.0)
[2024-08-22 11:45] LABS: Anion Gap 12 (5-15); BUN 9 mg/dL (4-19); BUN/Creat Ratio 10.2 RATIO (10-20); Calcium,Total 8.8 mg/dL (7.6-11.0); Carbon Dioxide 24.7 mmol/L (21.0-32.0); Chloride 104 mmol/L (98-108); Creatinine, Serum 0.86 mg/dL (0.70-1.20); EST Glomerular Filtration Rate 80 (>60); Estimated Creatinine Clearance 99.71 ml/min (50-250); Glucose 121 mg/dL (70-99); Potassium 3.2 mmol/L (3.3-5.1); Sodium Level 141 mmol/L (133-145)
[2024-08-22 11:55] LABS: Pro- Brain NATRIURETIC PEPTIDE 350 pg/mL (<=900); Troponin T High Sensitivity 21 ng/L (<=14)
[2024-08-22 13:57] LABS: Troponin T High Sens 2 HR 19 ng/L (<=14)
[2024-08-22] MEDS: Morphine 4 MG/ML Syringe IV (14:26)
[2024-08-22] MEDS: Ondansetron 4 MG/2 ML Vial IV (14:26)
--- NOTE | 2024-08-22 15:38 | ED.RN ---
LAB CALLED FOR 4HR TROPONIN DRAW. UNABLE TO OBTAIN.
[2024-08-22 16:37] LABS: Troponin T High Sens 4 HR 18 ng/L (<=14)
== END 2024-08-22 16:35 | disposition home or self-care (01) ==
PROVIDERS: Emergency Provider Emergency Medicine; PCP Family Medicine; Visit Provider Emergency Medicine
DX: H16.001 Unspecified corneal ulcer, right eye (principal); X58.XXXA Exposure to other specified factors, initial encounter; R07.9 Chest pain, unspecified; R06.02 Shortness of breath; Z91.148 Patient's other noncompliance with medication regimen for other reason
CPT/HCPCS: 36415; 71046; 80048; 83880; 84484; 85025; 93005; 96361; 96374; 96375; 99285; A4216; J2405

== ENCOUNTER 2024-08-23 17:02 | Emergency (ER) | payer MEDICARE, MEDICAID, SELFPAY ==
[2024-08-23 17:04] VITALS: BP 173/104; PULSE 87; RESP 16; TEMP 35.8; O2SAT 97
--- NOTE | 2024-08-23 17:18 | EDS_ITS ---
HPI History of Present Illness Chief Complaint: Eye Problem Narrative Narrative: 54-year-old female past medical history of corneal ulcer and blindness of right eye presents from [facility] with instructions that she needs transferred to the [facility] for emergent treatment. She relates history that she has had problems with her right eye for months, and that it is constantly draining. Her right upper lid is everted and painful. She was seen in the emergency department yesterday for chest pain, and evaluated and told to follow-up with a corneal specialist which she had intermittently been doing previously, or at the [facility]. It was reported that she had been noncompliant with seeing the corneal specialist for a corneal ulcer. She was evaluated today, by Dr. Barba, who stated that he discussed the exam and explained the emergency situation to the patient and that the recommendation was to go to the [facility] emergency room for probable injections of antibiotics and possible enucleation of the eye. He ca lled the [facility] to let them know that patient was to be on her way. This was at 3:55 PM. Patient presents to the emergency department at 1720 stating that she needs to be transferred. [facility] Medical History Toxic metabolic encephalopathy MARYANA (acute kidney injury) Noncompliance with medication regimen Acute hypoxic on chronic hypercapnic respiratory failure Myxedema coma Elevated serum creatinine Sinus bradycardia on ECG Kidney failure MARYANA (acute kidney injury) Fatigue MARYANA (acute kidney injury) Walker as ambulation aid Ambulates with cane Low iron History of renal disease High cholesterol DVT (deep venous thrombosis) PONV (postoperative nausea and vomiting) Stroke/cerebrovascular accident Sleep apnea Fall Cardiology follow-up encounter Scalp hematoma Pulmonary embolism Post-menopausal Thyroid disease Injury of head and neck Dietary restriction Difficulty swallowing BiPAP (biphasic positive airway pressure) dependence COPD (chronic obstructive pulmonary disease) Shortness of breath on exertion Leg cramps History of pain when walking History of edema History of echocardiogram History of stress test Syncope Abnormal glucose Noncompliance DAVY treated with BiPAP UTI (urinary tract infection) Vitamin D deficiency Restless leg syndrome Vitamin B12 deficiency Iron deficiency anemia History of chronic back pain Wears glasses Arthritis Non-smoker Hydronephrosis Depression Anemia Migraine headache Chronic kidney disease Diabetes mellitus Gout Celiac disease Hyperlipidemia GERD (gastroesophageal reflux disease) Dyspnea on exertion Chest pain Hypersomnia Cardiac murmur Microcytic anemia Hypertension Morbid obesity with BMI of 40.0-44.9, adult Asthma Hypothyroidism Anxiety Home Medications ?Medication ?Instructions ?Recorded ?Last Taken ?Type carboxymethylcellulose sodium 0.5 2 drp RIGHT EYE Q1H PRN DRY EYES 05/11/24 06/27/24 Rx % eye drops (Refresh Tears) #0 mL tramadol 50 mg tablet 50 mg PO TID PRN pain 3 days #9 05/11/24 06/27/24 Rx tabs atorvastatin 40 mg tablet 40 mg PO QHS cholestrol 05/3106/26/24 History insulin lispro 100 unit/mL 1 sliding scale dose subcut ACHS 06/27/24 06/27/24 History subcutaneous pen (Humalog KwikPen diabetes (U-100) Insulin) rimegepant 75 mg disintegrating 75 mg PO DAILY PRN jeny víctor 06/27/24 Unknown History tablet (Nurtec ODT) citalopram 20 mg tablet 40 mg (2 x 20 mg) PO DAILY 0 08/08/24 06/27/24 Rx depression #1 TAB levothyroxine 150 mcg tablet 150 mcg PO DAILY@0600 #30 tabs 08/08/24 Unknown Rx Allergy/AdvReac Type Severity Reaction Status Date / Time hydrochlorothiazide AdvReac Intermediate Contributes Verified 08/04/24 13:29 to gout naproxen (From Naprosyn) AdvReac Intermediate Nausea Verified 08/04/24 13:29 aspirin AdvReac Nausea Verified 08/04/24 13:29 Penicillins AdvReac Other Verified 08/04/24 13:29 Family History Father , Age 72 Hypertension Mother CAD (coronary artery disease) Myocardial infarction, Onset Age: 55 Hypertension Sister CAD (coronary artery disease) Brother Cancer Surgical History History of cardiac catheterization History of History of carpal tunnel surgery of right wrist History of carpal tunnel surgery of left wrist Hx of cystoscopy History of left heart catheterization (11/11/20) history of uterine ablation Social History household members: spouse housing: apartment Smoking Status: Never smoker alcohol intake: never substance use type: does not use caffeine: No ROS ROS ED ROS Narrative Review of systems positive for months of blindness of right eye, and right eye pain with discharge. No fevers or chills, no nausea or vomiting. EXAM Physical Exam Narrative Exam Narrative: Afebrile. Vital signs noted. Nontoxic-appearing. Inspection of the right eye does show right upper lid everted with chemosis and conjunctival injection. Noted dried drainage on patient's shirt. Cardiovascular examination regular rate and rhythm. Lungs are clear to auscultation bilaterally. Abdomen is soft and nontender, and obese without guarding or rebound. Neurological examination nonfocal and nonlateralizing. Const Vital Signs: 08/23/24 17:04 Temperature 96.5 F L Temperature Source Temporal Pulse Rate 87 Respiratory Rate 16 Blood Pressure 173/104 H Blood Pressure Mean 127 Pulse Ox 97 Oxygen Delivery Method Room Air MDM MDM MDM Narrative Medical decision making narrative: I reviewed the patient's prior ED visit and paperwork from the eye doctor today. The differential diagnosis does include but not limited to acute endophthalmitis of the right eye as well as central corneal ulcer. I do not feel that she requires any laboratory testing currently or imaging as her instructions are that she needs emergent follow-up at a tertiary care center at the [facility]. Patient will be discussed with ophthalmology. I also was able to discuss the patient with the physician who saw her today Dr. Gill. I discussed patient with Dr. Lobo with ophthalmology at the [facility]. Through the transfer center, it was decided that she can be accepted as an ED to ED transfer. I then discussed the patient with the ED physician for transfer. She was given 1 oxycodone tablet here for analgesia. She was then given a [place] tablet prior to transfer. Disposition is transferred in stable condition. History & Record Review Discussion w/independent historian: Patient Additional record(s) reviewed:: Prior ED visit Management Discussion w/another healthcare provider: Secondary Special Education Teacher (Dr. Dye, Dr. Lobo) and Other (ED physician [facility]) Discharge Plan Triage Chief Complaint: Eye Problem ED Provider: [place] Dx/Rx/DC Orders Clinical Impression: Acute endophthalmitis of right eye, Corneal ulcer of right eye, Floppy eyelid syndrome of right eye Prescriptions: No Action carboxymethylcellulose sodium [Refresh Tears] 0.5 % Drops 2 drp RIGHT EYE Q1H PRN (Reason: DRY EYES) Qty: 0 0RF tramadol 50 mg tablet 50 mg PO TID PRN (Reason: pain) 3 Days Qty: 9 0RF atorvastatin 40 mg tablet 40 mg PO QHS Nurtec ODT 75 mg tablet,disintegrating 75 mg PO DAILY PRN (Reason: migraine) insulin lispro [Humalog KwikPen Insulin] 100 unit/mL Insulin Pen 1 sliding scale dose subcut ACHS Protocol: 2. Sliding Scale Insulin Low-Med Dosing Condition: 150-209 mg/dl = 1 unit Condition: 210-269 mg/dl = 2 units Condition: 270-329 mg/dl = 3 units Condition: 330-389 mg/dl = 4 units Condition: 390-449 mg/dl = 5 units Condition: Greater than 449 call physician Protocol Text: Suggested for: - Patients on Total Daily Insulin Dose of 28-36 units - Average body habitus patients LOW MEDIUM DOSING ALGORITHM levothyroxine 150 mcg Tablet 150 mcg PO DAILY@0600 Qty: 30 0RF citalopram 20 mg Tablet 40 mg PO DAILY Qty: 1 0RF Primary Care Provider: Nasreen Sutton Referrals: Nasreen Sutton MD [Primary Care Provider] - Print Language: Arabic Disposition Disposition: Acute Care Hospital Discharge Location: [facility] Discharge Date/Time: 08/23/24 20:11
[2024-08-23 17:25] VITALS: BMI 49.7
[2024-08-23] MEDS: oxyCODONE 5 MG Tablet PO (18:43)
[2024-08-23 18:44] VITALS: BP 165/95; PULSE 78; RESP 16; O2SAT 97
[2024-08-23 19:00] VITALS: BP 164/99; PULSE 74; RESP 16; O2SAT 98
[2024-08-23] MEDS: HYDROcodone Bitartrate/Apap 5/325 Tablet PO (19:57)
[2024-08-23 20:06] VITALS: BP 169/99; PULSE 79; RESP 19; TEMP 36.7; O2SAT 95
== END 2024-08-23 20:11 | disposition short-term general hospital (02) ==
PROVIDERS: Emergency Provider Emergency Medicine; PCP Family Medicine; Visit Provider Emergency Medicine
DX: H16.011 Central corneal ulcer, right eye (principal); H44.001 Unspecified purulent endophthalmitis, right eye; H02.89 Other specified disorders of eyelid
CPT/HCPCS: 99284; A4216

== ENCOUNTER 2024-08-28 08:55 | Emergency (ER) | payer MEDICARE, MEDICAID, SELFPAY ==
[2024-08-28] VITALS (18 sets, daily range): BP systolic 140–187; BP diastolic 74–104; PULSE 62–96; RESP 14–22; TEMP 36.6–37.2; O2SAT 91–98; BMI 49.1
--- NOTE | 2024-08-28 08:58 | ED.RN ---
dr. ty says cancel stroke alert> [facility] not called
--- NOTE | 2024-08-28 08:58 | ED.RN ---
dr. ty says cancel stroke alert> [facility] not called
--- NOTE | 2024-08-28 09:00 | CT_ITS ---
PROCEDURE: BRAIN/HEAD WITHOUT CONTRAST 08/28/2024 REASON FOR EXAM: HEADACHE TECHNIQUE: BRAIN/HEAD WITHOUT CONTRAST Coronal and Sagittal reconstruction series were provided. One or more dose reduction techniques were used (e.g., Automated exposure control, adjustment of the mA and/or kV according to patient size, use of iterative reconstruction technique. RADIATION DOSE SUMMARY: CTDlvol: 44.99 mGy DLP: 796.11 mGycm COMPARISON: 08/04/2024 FINDINGS: Brain: Within normal limits for age CSF Spaces: Normal Sinuses/Mastoids: Clear at visualized levels Bones: No fracture or suspicious osseous lesion. CT/Brain/Head without Contrast IMPRESSION: No acute abnormalities, no interval change Reading Location: [id number]
--- NOTE | 2024-08-28 09:00 | CT_ITS ---
PROCEDURE: BRAIN/HEAD WITHOUT CONTRAST 08/28/2024 REASON FOR EXAM: HEADACHE TECHNIQUE: BRAIN/HEAD WITHOUT CONTRAST Coronal and Sagittal reconstruction series were provided. One or more dose reduction techniques were used (e.g., Automated exposure control, adjustment of the mA and/or kV according to patient size, use of iterative reconstruction technique. RADIATION DOSE SUMMARY: CTDlvol: 44.99 mGy DLP: 796.11 mGycm COMPARISON: 08/04/2024 FINDINGS: Brain: Within normal limits for age CSF Spaces: Normal Sinuses/Mastoids: Clear at visualized levels Bones: No fracture or suspicious osseous lesion. CT/Brain/Head without Contrast IMPRESSION: No acute abnormalities, no interval change Reading Location: [id number]
--- NOTE | 2024-08-28 09:12 | ED.VIS.CHEST ---
HPI History of Present Illness Chief Complaint: Stroke Alert Detail of Chief Complaint: Chest pain shortness of breath Informant: patient Onset/Context/Timing Onset: Today and Hours Activity at onset: sudden Timing: Continuous Quality: Positive for Aching Location: - (Diffuse chest pain) Current Severity: Mild Maximum Severity: Mild Worsened By: Nothing Relieved By: Nothing Associated Symptoms: Positive for Dyspnea; Negative for Nausea, Vomiting or Diaphoresis Narrative Narrative: 54-year-old female brought in by squad she called the squad due to chest pain and shortness of breath. They requested a stroke alert but this is really not a stroke complaint. Patient states that around 7 AM this morning she had chest pain shortness of breath. She describes her chest pain as diffuse. Associated shortness of breath. No hemoptysis. History of prior DVT and PE. Currently not on any blood thinner. Prior Similar Symptoms: No Recent Illness/Hospitalization: Yes CVD Risk Factors: Positive for Diabetes PE Risk Factors: Positive for Recent Immobilization and Prior DVT or PE; Negative for Recent Travel/Surgery, Cancer or OCP + Smoking + >/=35 TAD Risk Factors: Negative for Marfan's Syndrome, Hypertension or Family History [facility] Medical History Toxic metabolic encephalopathy MARYANA (acute kidney injury) Noncompliance with medication regimen Acute hypoxic on chronic hypercapnic respiratory failure Myxedema coma Elevated serum creatinine Sinus bradycardia on ECG Kidney failure MARYANA (acute kidney injury) Fatigue MARYANA (acute kidney injury) Walker as ambulation aid Ambulates with cane Low iron History of renal disease High cholesterol DVT (deep venous thrombosis) PONV (postoperative nausea and vomiting) Stroke/cerebrovascular accident Sleep apnea [facility] follow-up encounter Scalp hematoma Pulmonary embolism Post-menopausal Thyroid disease Injury of head and neck Dietary restriction Difficulty swallowing BiPAP (biphasic positive airway pressure) dependence COPD (chronic obstructive pulmonary disease) Shortness of breath on exertion Leg cramps History of pain when walking History of edema History of echocardiogram History of stress test Syncope Abnormal glucose Noncompliance DAVY treated with BiPAP UTI (urinary tract infection) Vitamin D deficiency Restless leg syndrome Vitamin B12 deficiency Iron deficiency anemia History of chronic back pain Wears glasses Arthritis Non-smoker Hydronephrosis Depression Anemia Migraine headache Chronic kidney disease Diabetes mellitus Gout Celiac disease Hyperlipidemia GERD (gastroesophageal reflux disease) Dyspnea on exertion Chest pain Hypersomnia Cardiac murmur Microcytic anemia Hypertension Morbid obesity with BMI of 40.0-44.9, adult Asthma Hypothyroidism Anxiety Home Medications ?Medication ?Instructions ?Recorded ?Last Taken ?Type carboxymethylcellulose sodium 0.5 2 drp RIGHT EYE Q1H PRN DRY EYES 05/11/24 06/27/24 Rx % eye drops (Refresh Tears) #0 mL tramadol 50 mg tablet 50 mg PO TID PRN pain 3 days #9 05/11/24 06/27/24 Rx tabs atorvastatin 40 mg tablet 40 mg PO QHS cholestrol 06/27/24 06/26/24 History insulin lispro 100 unit/mL 1 sliding scale dose subcut ACHS 06/27/24 06/27/24 History subcutaneous pen (Humalog KwikPen diabetes (U-100) Insulin) rimegepant 75 mg disintegrating 75 mg PO DAILY PRN migraine 06/27/24 Unknown History tablet (Nurtec ODT) citalopram 20 mg tablet 40 mg (2 x 20 mg) PO DAILY 08/08/24 06/27/24 Rx depression #1 TAB levothyroxine 150 mcg tablet 150 mcg PO DAILY@0600 #30 tabs 08/08/24 Unknown Rx apixaban 5 mg (74 tabs) tablets in See Rx Instructions .Route 08/28/24 Unknown Rx a dose pack (Eliquis DVT-PE Treat .COMPLEX #74 tabs 30D Start) Allergy/AdvReac Type Severity Reaction Status Date / Time hydrochlorothiazide AdvReac Intermediate Contributes Verified 08/04/24 13:29 to gout naproxen (From Naprosyn) AdvReac Intermediate Nausea Verified 08/04/24 13:29 aspirin AdvReac Nausea Verified 08/04/24 13:29 Penicillins AdvReac Other Verified 08/04/24 13:29 Family History Father , Age 72 Hypertension Mother CAD (coronary artery disease) Myocardial infarction, Onset Age: 55 Hypertension Sister CAD (coronary artery disease) Brother Cancer Surgical History History of cardiac catheterization History of History of carpal tunnel surgery of right wrist History of carpal tunnel surgery of left wrist Hx of cystoscopy History of left heart catheterization (11/11/20) history of uterine ablation Social History household members: spouse housing: apartment Smoking Status: Never smoker alcohol intake: never substance use type: does not use caffeine: No ROS ROS ED ROS Narrative Chest pain shortness of breath this morning. Constitutional Constitutional ED: Denies chills or fever(s) Eyes Eyes: Reports none ENT ENT ED: Denies ear pain Cardiovascular Cardiovascular: Reports as per HPI and chest pain Respiratory/Chest Respiratory/Chest: Reports dyspnea; Denies cough Gastrointestinal Gastrointestinal: Denies abdominal pain, nausea or vomiting Genitourinary Genitourinary ED: Denies dysuria Musculoskeletal Musculoskeletal: Denies arthralgias or back pain Integumentary Denies abscess Neurologic Neurologic: Reports headache(s) Psychiatric Psychiatric: Denies anxiety Endocrine Endocrinology: Denies cold intolerance or heat intolerance Hematologic/Lymphatic Hematologic/Lymphatic: Denies easy bleeding or easy bruising Allergic/Immunologic Allergic/Immunologic ED: Denies mouth swelling, tongue swelling or urticaria EXAM Physical Exam Narrative Exam Narrative: 54-year-old female sitting upright in bed. Vital signs are stable afebrile. Pulse ox 97% on room air no hypoxia. No distress. H EENT exam patient is blind in her right eye. She also has an irregular right upper eyelid that is swollen. Its her baseline. Moist mucous membranes. No facial droop. No trauma to her face or head. Neck nontender. No lymphadenopathy. Lungs clear to auscultation. Heart regular rhythm rate about 90 no murmur. Chest wall ribs she states she has reproducible chest wall discomfort. There is no ecchymosis or bruising. No redness or warmth. No crepitance. Abdomen soft nontender. Obese. No peritoneal signs. Moving all 4 extremities. Calves are nontender without cords. Back nontender. Neurologically she is awake and alert. Answer questions following exam. Moving all 4 extremities. No focal motor deficits. Again she is blind in her right eye. Const Vital Signs: 08/28/24 09:01 08/28/24 09:04 08/28/24 10:35 Temperature 98.9 F Temperature Source Temporal Pulse Rate 96 83 Respiratory Rate 22 H 15 Blood Pressure 171/94 H 163/104 H Blood Pressure Mean 119 123 Pulse Ox 97 97 Oxygen Delivery Method Room Air Room Air Nasal Cannula Oxygen Flow Rate (L/min) 2 08/28/24 11:00 08/28/24 11:31 08/28/24 12:00 Temperature Temperature Source Pulse Rate 87 79 82 Respiratory Rate 14 15 18 Blood Pressure 187/104 H 168/90 H 150/91 H Blood Pressure Mean 131 114 110 Pulse Ox 97 91 97 Oxygen Delivery Method Nasal Cannula Room Air Oxygen Flow Rate (L/min) 2 08/28/24 12:00 08/28/24 12:15 08/28/24 12:30 Temperature Temperature Source Pulse Rate 88 83 80 Respiratory Rate 17 15 17 Blood Pressure 150/93 H 150/91 H 158/86 H Blood Pressure Mean 110 109 106 Pulse Ox 96 95 97 Oxygen Delivery Method Oxygen Flow Rate (L/min) 08/28/24 12:45 08/28/24 13:00 08/28/24 13:00 Temperature Temperature Source Pulse Rate 78 84 Respiratory Rate 20 H 16 Blood Pressure 160/92 H 156/88 H Blood Pressure Mean 112 108 Pulse Ox 98 96 Oxygen Delivery Method Oxygen Flow Rate (L/min) 08/28/24 13:15 08/28/24 13:30 08/28/24 13:45 Temperature Temperature Source Pulse Rate 79 75 73 Respiratory Rate 14 19 H 18 Blood Pressure 147/92 H 169/102 H 162/99 H Blood Pressure Mean 110 114 119 Pulse Ox Oxygen Delivery Method Oxygen Flow Rate (L/min) 08/28/24 14:00 08/28/24 14:15 08/28/24 14:30 Temperature Temperature Source Pulse Rate 69 75 62 Respiratory Rate 18 19 H 14 Blood Pressure 171/99 H 147/97 H 140/81 H Blood Pressure Mean 111 113 99 Pulse Ox 96 Oxygen Delivery Method Oxygen Flow Rate (L/min) 08/28/24 15:00 Temperature Temperature Source Pulse Rate Respiratory Rate 15 Blood Pressure 156/74 H Blood Pressure Mean 99 Pulse Ox 97 Oxygen Delivery Method Oxygen Flow Rate (L/min) Positive well nourished, well developed and obese; Negative for cachectic, contractures or unkempt General Appearance ED: well developed and NAD; Negative for unkempt, cachectic, contractures or pallor Nutritional Appearance: obese; Negative for cachectic HEENT Reports moist mucous membranes normocephalic and atraumatic Eyes EOMs intact bilaterally; Negative for PERRL Eyes Narrative: Blind right eye. Right upper eyelid swollen which is chronic. Right eye injected. Chronic. Neck no lymphadenopathy, supple and no JVD Chest Wall inspection of chest normal; Negative for palpation of chest normal Chest Narrative: Reproducible chest wall pain. Normal in appearance. Chest: Negative for tenderness Resp normal respiratory effort and clear to auscultation bilaterally Effort and Inspection: Negative for respiratory distress Auscultation: Negative for rales, rhonchi, wheezes or diminished lung sounds Cardio regular rate, regular rhythm, S1 normal heart sound, S2 normal heart sound and no murmurs Peripheral Pulses: pulses 2+ throughout GI normal to inspection, nondistended, normoactive bowel sounds, soft to palpation, non-tender, non-distended and no masses Back/Spine no CVA tenderness and no thoracic nor lumbar tenderness Extremity normal to inspection General Extremety ED: Negative for edema or pulses abnormal General Extremity: Negative for edema or pulses abnormal Neuro oriented x3 and No no sensory deficits noted Neuro Narrative: Blind right eye. Sensorium / Orientation: awake Motor Exam: strength 5/5 throughout Psych mental status grossly normal Appearance: Negative for unkempt Attitude: No agitated Mood & Affect: Negative for depressed, anxious or tearful Skin no rashes or lesions noted and no wounds General Skin Exam: Negative for jaundice or pallor Rashes: No rashes noted Trauma: Negative for abrasion or laceration MDM MDM MDM Narrative Medical decision making narrative: 54-year-old female with chest pain and shortness of breath. She will undergo cardiac workup. She has had a prior DVT and PE she tells me a D-dimer will be obtained. She also has a headache which we will obtain CAT scan. On exam I see no acute signs of stroke. Repeat exam patient is doing well at 1:05 PM. I spoke to the radiologist. The CT of her chest shows primarily chronic pulmonary emboli but he said there may be a few acute. She will be restarted back on her Eliquis which she has been on in the past for blood clots. I will send a prescription to our pharmacy her first dose to be given here. Awaiting her second troponin to be done. Patient doing well just awaiting the 2-hour troponin. It was checked out to the afternoon physician and we will check that prior to disposition. Plan is for her to be discharged to home. History & Record Review Discussion w/independent historian: EMS personnel and Patient Additional record(s) reviewed:: Prior inpatient record, Prior outpatient record, Prior ED visit and Prior labs Lab Data Attestation: I reviewed the patient's lab results. Lab results narrative: CBC shows white count 12.3. H&H 11.1 and 34.6. Platelets 462. D-dimer is 3.09. CTA being obtained. CTA shows primarily chronic but a few possible acute pulmonary emboli. Labs: Laboratory Results - last 24 hr 08/28/24 08/28/24 09:27 12:02 WBC 12.3 H RBC 3.65 L Hgb 11.1 L Hct 34.6 L MCV 94.8 MCH 30.4 MCHC 32.1 RDW Std Deviation 64.2 H RDW Coeff of Alfredo 18.5 H Plt Count 462 H MPV 9.5 Immature Gran % (Auto) 0.700 Neut % (Auto) 78.0 H Lymph % (Auto) 12.0 L [place] % (Auto) 7.0 Eos % (Auto) 1.7 Baso % (Auto) 0.6 Absolute Neuts (auto) 9.6 H Absolute Lymphs (auto) 1.47 Nucleated RBC % 0 D-Dimer Quant (PE/DVT) 3.09 H* Sodium 138 Potassium 3.9 Chloride 101 Carbon Dioxide 25.5 Anion Gap 11 BUN 6 Creatinine 0.71 Estim Creat Clear Calc 121.23 Est GFR (MDRD) Non-Af 102 BUN/Creatinine Ratio 9.2 L Glucose 111 H Calcium 8.6 Troponin T High Sens 16 H D Radiography Chest X-Ray - ED: 1 View, Read by ED Physician, Read by Radiologist, Normal, Lungs, Mediastinum, Bony Structures, No Acute Disease, Chronic Changes and Cardiomegaly Diagnostic Testing: Clinical Impression(s) from Imaging Studies Brain CT 08/28/24 09:00 IMPRESSION: No acute abnormalities, no interval change Reading Location: [id number] Chest X-Ray 08/28/24 10:00 IMPRESSION: There is cardiomegaly without overt CHF, similar to the prior. Reading Location: [facility] Chest CTA 08/28/24 11:36 IMPRESSION: There is free fluid in the upper abdomen measuring 3.4 cm at the liver margin. There is clot visible to the branch vessels in the right upper, middle, and lower lobe branches with occlusive and nonocclusive components. There is partly occlusive clot present in the left upper lobe, image [id number].. There is clot visible in the left lower lobe proximal and distal branches. Critical results were discussed with Dr. Merritt by Dr. Plascencia at the time of dictation. Reading Location: [facility] Chest x-ray, portable, single view, interpreted by myself and radiologist shows cardiomegaly but otherwise no acute process. Rhythm Strip Rhythm Strip: Sinus Rhythm Rate: 91 Ectopy: None EKG Initial EKG: Attestation: I personally reviewed and interpreted this EKG as follows: Interpretation: Sinus Rhythm and No Acute Injury Pattern Comments: Normal sinus rhythm rate of 91 no acute signs of [place]. She does have inverted T waves in V2 V3. Seen on prior EKG. Prior EKG tracings: available for review Prior: Unchanged Discharge Plan Triage Chief Complaint: Stroke Alert ED Provider: Pipo Merritt Dx/Rx/DC Orders Clinical Impression: Chest pain, History of diabetes mellitus, Pulmonary emboli Instructions: Embolism Pulmonary Dc Prescriptions: New Eliquis DVT-PE Treat 30D Start 5 mg (74 tabs) tablets,dose pack See Rx Instructions .Route .COMPLEX Qty: 74 0RF Rx Instructions: orally per package directions No Action carboxymethylcellulose sodium [Refresh Tears] 0.5 % Drops 2 drp RIGHT EYE Q1H PRN (Reason: DRY EYES) Qty: 0 0RF tramadol 50 mg tablet 50 mg PO TID PRN (Reason: pain) 3 Days Qty: 9 0RF atorvastatin 40 mg tablet 40 mg PO QHS Nurtec ODT 75 mg tablet,disintegrating 75 mg PO DAILY PRN (Reason: migraine) insulin lispro [Humalog KwikPen Insulin] 100 unit/mL Insulin Pen 1 sliding scale dose subcut ACHS Protocol: 2. Sliding Scale Insulin Low-Med Dosing Condition: 150-209 mg/dl = 1 unit Condition: 210-269 mg/dl = 2 units Condition: 270-329 mg/dl = 3 units Condition: 330-389 mg/dl = 4 units Condition: 390-449 mg/dl = 5 units Condition: Greater than 449 call physician Protocol Text: Suggested for: - Patients on Total Daily Insulin Dose of 28-36 units - Average body habitus patients LOW MEDIUM DOSING ALGORITHM levothyroxine 150 mcg Tablet 150 mcg PO DAILY@0600 Qty: 30 0RF citalopram 20 mg Tablet 40 mg PO DAILY Qty: 1 0RF Primary Care Provider: Nasreen uStton Referrals: Nasreen Sutton MD [Primary Care Provider] - As soon as possible Activity Restrictions/Additional Instructions: Restart your blood thinner Eliquis. Follow-up with your primary care physician. Your labs today look good except the CAT scan had primarily chronic blood clots in your lungs but they felt some might be new. That is why we are restarting your blood thinner. Print Language: Slovak Disposition Disposition: Home, Self Care
[2024-08-28 09:33] LABS: Hematocrit 34.6 % (37-47); Hemoglobin 11.1 g/dL (12.0-15.0); Immature Granulocytes Count 0.090 X10^3/uL (0.0-0.0); Mean Corp Hgb Conc 32.1 g/dL (32-36); Mean Corpuscular Volume 94.8 fL (81-99); Mean Platelet Vol. 9.5 fl (6.2-12.0); NRBC Flagged by Analyzer 0 % (0-5); Platelet Count 462 K/mm3 (150-450); RBC Distribution Width CV 18.5 % (11.6-14.6); RBC Distribution Width SD 64.2 fl (35.1-43.9); Red Blood Count 3.65 M/mm3 (4.2-5.4); White Blood Count 12.3 K/mm3 (4.4-11.0)
[2024-08-28 09:59] LABS: D-Dimer Quantitative (DVT/PE) 3.09 FEU/ug/m (0.27-0.49)
--- NOTE | 2024-08-28 10:00 | RAD_ITS ---
PROCEDURE: CHEST 1 VIEW (PORTABLE) N/A REASON FOR EXAM: CHEST PAIN TECHNIQUE: Frontal view of the chest. COMPARISON: August 22, 2024, FINDINGS: There is cardiomegaly without overt CHF, similar to the prior. There is no pneumothorax or effusion. There is no acute bony abnormality. Aortic calcifications are visible. RAD/Chest 1 View (Portable) IMPRESSION: There is cardiomegaly without overt CHF, similar to the prior. Reading Location: [facility]
--- NOTE | 2024-08-28 10:00 | RAD_ITS ---
PROCEDURE: CHEST 1 VIEW (PORTABLE) N/A REASON FOR EXAM: CHEST PAIN TECHNIQUE: Frontal view of the chest. COMPARISON: August 22, 2024, FINDINGS: There is cardiomegaly without overt CHF, similar to the prior. There is no pneumothorax or effusion. There is no acute bony abnormality. Aortic calcifications are visible. RAD/Chest 1 View (Portable) IMPRESSION: There is cardiomegaly without overt CHF, similar to the prior. Reading Location: [facility]
--- NOTE | 2024-08-28 10:34 | ED.RN ---
pt only 88% while sleeping. o2 applied at 2l and 97% now. pt reports having cpap at home for willie.
--- NOTE | 2024-08-28 10:34 | ED.RN ---
pt only 88% while sleeping. o2 applied at 2l and 97% now. pt reports having cpap at home for willie.
--- NOTE | 2024-08-28 11:36 | CT_ITS ---
PROCEDURE: CTA CHEST W/WO CONTRAST 08/28/2024 REASON FOR EXAM: CHEST PAIN WITH ELEVATED D-DIMER. HISTORY OF PRIO TECHNIQUE: CTA CHEST W/WO CONTRAST Multiplanar Sagittal and Coronal images were obtained. CONTRAST: 100 cc Isovue-300 One or more dose reduction techniques were used (e.g., Automated exposure control, adjustment of the mA and/or kV according to patient size, use of iterative reconstruction technique). RADIATION DOSE SUMMARY: DLP: 568.35 mGycm COMPARISON: August 05, 2024 FINDINGS: Hardware: None Lymph nodes: There is no pathologic adenopathy by size criteria. Heart: Coronary artery calcifications are noted RV/LV Diameter Ratio: 0.8 Thoracic Aorta: Intact Pulmonary Vessels: Main pulmonary artery Hounsfield units = 277 There is clot visible to the branch vessels in the right upper, middle, and lower lobe branches with occlusive and nonocclusive components. There is partly occlusive clot present in the left upper lobe, image [id number].. There is clot visible in the left lower lobe proximal and distal branches. Lungs and Airways: There is no focal infiltrate or consolidation. There is no visible pulmonary infarct. Pleura: There is no pneumothorax or effusion. Upper Abdomen: There is free fluid in the upper abdomen measuring 3.4 cm at the liver margin. Bones: There is no acute bony abnormality CT/CTA Chest W/WO Contrast IMPRESSION: There is free fluid in the upper abdomen measuring 3.4 cm at the liver margin. There is clot visible to the branch vessels in the right upper, middle, and low er lobe branches with occlusive and nonocclusive components. There is partly occlusive clot present in the left upper lobe, imag e [id number].. There is clot visible in the left lower lobe proximal and distal branches. Critical results were discussed with Dr. Merritt by Dr. Plascencia at the time o f dictation. Reading Location: [facility]
[2024-08-28 12:45] LABS: Troponin T High Sensitivity 16 ng/L (<=14)
[2024-08-28 12:47] LABS: Anion Gap 11 (5-15); BUN 6 mg/dL (4-19); BUN/Creat Ratio 9.2 RATIO (10-20); Calcium,Total 8.6 mg/dL (7.6-11.0); Carbon Dioxide 25.5 mmol/L (21.0-32.0); Chloride 101 mmol/L (98-108); Estimated Creatinine Clearance 121.23 ml/min (50-250); Glucose 111 mg/dL (70-99); Potassium 3.9 mmol/L (3.3-5.1)
[2024-08-28 15:41] LABS: Troponin T High Sens 2 HR 18 ng/L (<=14)
== END 2024-08-28 17:02 | disposition home or self-care (01) ==
PROVIDERS: Emergency Provider Emergency Medicine; PCP Family Medicine; Visit Provider Emergency Medicine
DX: I27.82 Chronic pulmonary embolism (principal); E66.01 Morbid (severe) obesity due to excess calories; Z68.42 Body mass index [BMI] 45.0-49.9, adult; E11.22 Type 2 diabetes mellitus with diabetic chronic kidney disease; Z79.4 Long term (current) use of insulin; N18.9 Chronic kidney disease, unspecified; Z86.718 Personal history of other venous thrombosis and embolism
CPT/HCPCS: 70450; 71045; 71275; 80048; 84484; 85025; 85379; 93005; 96374; 96375; 96376; 99285; Q9967; A4216; J2405

== ENCOUNTER 2024-09-02 14:02 | Emergency (ER) | payer MEDICARE, MEDICAID, SELFPAY ==
[2024-09-02 14:53] VITALS: BP 151/94; PULSE 66; RESP 18; TEMP 36.6; O2SAT 98
[2024-09-02 14:55] VITALS: BMI 48.6
[2024-09-02 15:48] VITALS: BP 160/93; PULSE 73; RESP 14; TEMP 36.9; O2SAT 95
== END 2024-09-02 15:53 | disposition home or self-care (01) ==
PROVIDERS: Emergency Provider Emergency Medicine; PCP Family Medicine; Visit Provider Emergency Medicine
DX: H57.13 Ocular pain, bilateral (principal); J44.9 Chronic obstructive pulmonary disease, unspecified; E11.22 Type 2 diabetes mellitus with diabetic chronic kidney disease; Z79.4 Long term (current) use of insulin; I12.9 Hypertensive chronic kidney disease with stage 1 through stage 4 chronic kidney disease, or unspecified chronic kidney disease; E78.00 Pure hypercholesterolemia, unspecified; H54.8 Legal blindness, as defined in USA; G89.29 Other chronic pain; N18.9 Chronic kidney disease, unspecified; G47.33 Obstructive sleep apnea (adult) (pediatric); E66.9 Obesity, unspecified; Z79.899 Other long term (current) drug therapy; Z79.01 Long term (current) use of anticoagulants; Z86.73 Personal history of transient ischemic attack (TIA), and cerebral infarction without residual deficits; Z86.718 Personal history of other venous thrombosis and embolism; Z86.711 Personal history of pulmonary embolism
CPT/HCPCS: 99284

== ENCOUNTER 2024-09-04 19:53 | Emergency (ER) | payer MEDICARE, MEDICAID, SELFPAY ==
[2024-09-04 19:53] VITALS: BP 133/100; PULSE 80; RESP 18; TEMP 36.6; O2SAT 98; BMI 42.4
--- NOTE | 2024-09-04 21:31 | EKG12_ITS ---
Test Reason : GEN ILL Blood Pressure : */* mmHG Vent. Rate : 68 BPM Atrial Rate : 68 BPM P-R Int : 162 ms QRS Dur : 88 ms QT Int : 488 ms P-R-T Axes : 42 0 -25 degrees QTcB Int : 518 ms Normal sinus rhythm ST & T wave abnormality, consider inferior ischemia Abnormal ECG Confirmed by MIGULE GONZALEZ, MAGALI ([id number]), editor greeting card SONJA ZABALA ([id number]) on 09/06/2024 6:36:55 AM Referred By: Confirmed By: MAGALI RIVERA MD
--- NOTE | 2024-09-04 21:32 | EX.ED.VIS.EY ---
HPI History of Present Illness Chief Complaint: Eye Problem Informant: patient Onset/Context/Timing Location: Right Eye Onset: Month(s) Context: Gradual Onset Timing: Continuous Current Severity: Moderate Maximum Severity: Moderate Narrative Narrative: 54-year-old female well-known to this emergency department. Frequents the emergency department often. Complaining of acute on chronic right eye pain. She is legally blind in the right eye. She was just admitted to a hospital in [place] to have this further evaluated. 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 She also complaining of chest and epigastric discomfort. Said chest pain started when she was at home just lying in bed. She is on Eliquis for prior DVTs and states has been taking it. Denies any hemoptysis. She has had some recent vomiting and diarrhea. Denies fever. Prior similar symptoms: Yes Recent Illness/Hospitalization: Yes [facility] Medical History Toxic metabolic encephalopathy MARYANA (acute kidney injury) Noncompliance with medication regimen Acute hypoxic on chronic hypercapnic respiratory failure Myxedema coma Elevated serum creatinine Sinus bradycardia on ECG Kidney failure MARYANA (acute kidney injury) Fatigue MARYANA (acute kidney injury) Walker as ambulation aid Ambulates with cane Low iron History of renal disease High cholesterol DVT (deep venous thrombosis) PONV (postoperative nausea and vomiting) Stroke/cerebrovascular accident Sleep apnea Fall Cardiology follow-up encounter Scalp hematoma Pulmonary embolism Post-menopausal Thyroid disease Injury of head and neck Dietary restriction Difficulty swallowing BiPAP (biphasic positive airway pressure) dependence COPD (chronic obstructive pulmonary disease) Shortness of breath on exertion Leg cramps History of pain when walking History of edema History of echocardiogram History of stress test Syncope Abnormal glucose Noncompliance DAVY treated with BiPAP UTI (urinary tract infection) Vitamin D deficiency Restless leg syndrome Vitamin B12 deficiency Iron deficiency anemia History of chronic back pain Wears glasses Arthritis Non-smoker Hydronephrosis Depression Anemia Migraine headache Chronic kidney disease Diabetes mellitus Gout Celiac disease Hyperlipidemia GERD (gastroesophageal reflux disease) Dyspnea on exertion Chest pain Hypersomnia Cardiac murmur Microcytic anemia Hypertension Morbid obesity with BMI of 40.0-44.9, adult Asthma Hypothyroidism Anxiety Home Medications ?Medication ?Instructions ?Recorded ?Last Taken ?Type carboxymethylcellulose sodium 0.5 2 drp RIGHT EYE Q1H PRN DRY EYES 05/11/24 06/27/24 Rx % eye drops (Refresh Tears) #0 mL tramadol 50 mg tablet 50 mg PO TID PRN pain 3 days #9 05/11/24 06/27/24 Rx tabs atorvastatin 40 mg tablet 40 mg PO QHS cholestrol 06/27/24 06/26/24 History insulin lispro 100 unit/mL 1 sliding scale dose subcut ACHS 06/27/24 06/27/24 History subcutaneous pen (Humalog KwikPen diabetes (U-100) Insulin) rimegepant 75 mg disintegrating 75 mg PO DAILY PRN migraine 06/27/24 Unknown History tablet (Nurtec ODT) citalopram 20 mg tablet 40 mg (2 x 20 mg) PO DAILY 08/08/24 06/27/24 Rx depression #1 TAB levothyroxine 150 mcg tablet 150 mcg PO DAILY@0600 #30 tabs 08/08/24 Unknown Rx apixaban 5 mg (74 tabs) tablets in See Rx Instructions .Route 08/28/24 Unknown Rx a dose pack ([employer] DVT-PE Treat .COMPLEX #74 tabs 30D Start) budesonide-formoterol HFA 160 2 puff inhalation BID 09/02/24 Unknown History mcg-4.5 mcg/actuation aerosol inhaler (Symbicort) cyclobenzaprine 5 mg tablet 5 mg PO QPM 09/02/24 Unknown History diclofenac sodium 3 % topical gel 1 ea topical BID PRN PRN pain 09/02/24 Unknown History (scale score 1-3) ezetimibe 10 mg tablet 10 mg PO DAILY 09/02/24 Unknown History fluticasone propionate 50 2 spray intranasal BID allergies 09/02/24 Unknown History mcg/actuation nasal spray,suspension furosemide 40 mg tablet 40 mg PO DAILY 09/02/24 Unknown History gabapentin 100 mg capsule 100 mg PO TID pain 09/02/24 Unknown History gabapentin 300 mg capsule 300 mg PO TID 09/02/24 Unknown History galcanezumab-gnlm 120 mg/mL mg subcut 09/02/24 Unknown History subcutaneous pen injector (Emgality Pen) ganciclovir 0.15 % eye gel (Zirgan) 1 drp RIGHT EYE 4X/DAY 09/02/24 Unknown History isosorbide mononitrate 30 mg 30 mg PO DAILY 09/02/24 Unknown History tablet,extended release 24 hr lorazepam 0.5 mg tablet 0.5 mg PO TID PRN anxiety 09/02/24 Unknown History losartan 100 mg tablet 100 mg PO blood pressure 09/02/24 Unknown History moxifloxacin 0.5 % eye drops 1 drp RIGHT EYE Q2H 09/02/24 Unknown History Allergy/AdvReac Type Severity Reaction Status Date / Time hydrochlorothiazide AdvReac Intermediate Contributes Verified 09/04/24 19:55 to gout naproxen (From Naprosyn) AdvReac Intermediate Nausea Verified 09/04/24 19:55 aspirin AdvReac Nausea Verified 09/04/24 19:55 Penicillins AdvReac Other Verified 09/04/24 19:55 Family History Father , Age 72 Hypertension Mother CAD (coronary artery disease) Myocardial infarction, Onset Age: 55 Hypertension Sister CAD (coronary artery disease) Brother Cancer Surgical History History of cardiac catheterization History of History of carpal tunnel surgery of right wrist History of carpal tunnel surgery of left wrist Hx of cystoscopy History of left heart catheterization (11/11/20) history of uterine ablation Social History household members: spouse housing: apartment Smoking Status: Never smoker alcohol intake: never substance use type: does not use caffeine: No ROS ROS ED ROS Narrative Chest pain. Chronic eye pain. Vomiting and diarrhea. Constitutional Constitutional ED: Denies chills or fever(s) Eyes Eyes: Denies blurry vision Cardiovascular Cardiovascular: Reports chest pain Respiratory/Chest Respiratory/Chest: Denies cough or dyspnea Gastrointestinal Gastrointestinal: Reports abdominal pain, nausea and vomiting; Denies constipation, diarrhea or melena Genitourinary Genitourinary ED: Denies dysuria or hematuria Musculoskeletal Musculoskeletal: Denies arthralgias or back pain Integumentary Denies abscess Neurologic Neurologic: Denies headache(s) Psychiatric Psychiatric: Denies anxiety Endocrine Endocrinology: Denies polydipsia or polyphagia Hematologic/Lymphatic Hematologic/Lymphatic: Denies easy bleeding, easy bruising or lymphadenopathy Allergic/Immunologic Allergic/Immunologic ED: Denies mouth swelling, tongue swelling or urticaria EXAM Physical Exam Narrative Exam Narrative: 54-year-old female vital signs stable afebrile. Pulse ox 98% on room air no signs hypoxia. H EENT exam left eye pupils round reactive light extra motion intact. Right eye she is blind. She has an ulcer and opacity over the right pupil. That is chronic. She has chronic inflammation and swelling of the right upper eyelid which is not new or changed. The right eye is injected again chronic. Moist mucous membranes. Lungs clear. Heart regular rhythm no murmur. Rate about 80. Chest wall she has reproducible chest wall pain. Abdomen soft nondistended mild epigastric tenderness. No rebound guarding rigidity. No Mclean sign. No McBurney's point tenderness. Moving all 4 extremities. Normal strength. Calves are nontender no edema. Back nontender. Neurologically she is awake alert. Answering questions following commands. No focal motor deficits. Patient appears to be at her baseline. Const Vital Signs: 09/04/24 19:53 Temperature 98 F Temperature Source Oral Pulse Rate 80 Respiratory Rate 18 Blood Pressure 133/100 H Blood Pressure Mean 111 Pulse Ox 98 Oxygen Delivery Method Room Air Positive well nourished, well developed and obese; Negative for cachectic, contractures or unkempt General Appearance ED: well developed and NAD; Negative for unkempt, cachectic or contractures Nutritional Appearance: obese; Negative for cachectic HEENT HEENT Narrative: Blind right eye. Opacity of the right pupil scar tissue. atraumatic Neck no lymphadenopathy and supple Resp normal respiratory effort, no retractions, no use of accessory muscles, clear to auscultation bilaterally and percussion normal Resp Narrative: Reproducible chest wall pain. Cardio regular rate, regular rhythm, S1 normal heart sound, S2 normal heart sound and no murmurs GI non-tender, non-distended and no masses Auscultation: normoactive bowel sounds Back/Spine no CVA tenderness General Back: Negative for CVA tenderness Extremity normal to inspection General Extremety ED: Negative for edema General Extremity: Negative for edema Neuro oriented x3 and moves all extremities Neuro Narrative: Blind right eye. Sensorium / Orientation: alert, oriented to person, oriented to place and oriented to time Motor Exam: strength 5/5 throughout Psych Appearance: Negative for unkempt Skin no wounds Lesions: no lesions Rashes: no rashes MDM MDM MDM Narrative Medical decision making narrative: Patient well-known to this emergency department. Acute on chronic right eye pain. Atypical nonexertional chest and epigastric pain. She undergo cardiac workup. She was offered but did not want anything for nausea. Repeat exam at 11:35 PM patient doing well. she will be given Tylenol for discomfort. Repeat exam is benign and unchanged. Awaiting 2-hour troponin. If it is unremarkable which I suspect will be she will be discharged home. Should be turned over to the overnight physician. History & Record Review Discussion w/independent historian: Patient Additional record(s) reviewed:: Prior inpatient record, Prior outpatient record, Prior ED visit and Prior labs Lab Data Attestation: I reviewed the patient's lab results. Lab results narrative: CBC shows a white count of 12 H&H 11.9 and 37. Consistent with baseline. Electrolytes show potassium 3.1. Gap 15. BUN and creatinine of 13 and 1.1. Liver enzymes unremarkable. Lipase normal at 46 Initial troponin 27. Radiography Chest X-Ray - ED: 1 View, Read by ED Physician, Heart, Lungs, Mediastinum, Bony Structures, No Acute Disease and Chronic Changes Diagnostic Testing: Chest x-ray, portable, single view interpreted by myself shows normal cardiac silhouette and normal lung lee. No pneumonia. No effusions. Rhythm Strip Rhythm Strip: Sinus Rhythm Rate: 68 Ectopy: None EKG Initial EKG: Attestation: I personally reviewed and interpreted this EKG as follows: Interpretation: Sinus Rhythm and No Acute Injury Pattern Comments: Normal sinus rhythm rate of 68? signs of MN or ischemia. Discharge Plan Triage Chief Complaint: Eye Problem ED Provider: Pipo Merritt Dx/Rx/DC Orders Prescriptions: No Action Asaf DVT-PE Treat 30D Start 5 mg (74 tabs) tablets,dose pack See Rx Instructions .Route .COMPLEX Qty: 74 0RF Rx Instructions: orally per package directions carboxymethylcellulose sodium [Refresh Tears] 0.5 % Drops 2 drp RIGHT EYE Q1H PRN (Reason: DRY EYES) Qty: 0 0RF tramadol 50 mg tablet 50 mg PO TID PRN (Reason: pain) 3 Days Qty: 9 0RF atorvastatin 40 mg tablet 40 mg PO QHS Nurtec ODT 75 mg tablet,disintegrating 75 mg PO DAILY PRN (Reason: migraine) insulin lispro [Humalog KwikPen Insulin] 100 unit/mL Insulin Pen 1 sliding scale dose subcut ACHS Protocol: 2. Sliding Scale Insulin Low-Med Dosing Condition: 150-209 mg/dl = 1 unit Condition: 210-269 mg/dl = 2 units Condition: 270-329 mg/dl = 3 units Condition: 330-389 mg/dl = 4 units Condition: 390-449 mg/dl = 5 units Condition: Greater than 449 call physician Protocol Text: Suggested for: - Patients on Total Daily Insulin Dose of 28-36 units - Average body habitus patients LOW MEDIUM DOSING ALGORITHM levothyroxine 150 mcg Tablet 150 mcg PO DAILY@0600 Qty: 30 0RF citalopram 20 mg Tablet 40 mg PO DAILY Qty: 1 0RF diclofenac sodium 3 % gel 1 ea topical BID PRN PRN (Reason: pain (scale score 1-3)) cyclobenzaprine 5 mg tablet 5 mg PO QPM budesonide-formoterol [Symbicort] 160-4.5 mcg/actuation HFA aerosol inhaler 2 puff INHALATION BID furosemide 40 mg tablet 40 mg PO DAILY isosorbide mononitrate 30 mg tablet extended release 24 hr 30 mg PO DAILY lorazepam 0.5 mg tablet 0.5 mg PO TID PRN gabapentin 300 mg capsule 300 mg PO TID gabapentin 100 mg capsule 100 mg PO TID fluticasone propionate 50 mcg/actuation spray,suspension 2 spray INTRANASAL BID ezetimibe 10 mg tablet 10 mg PO DAILY Zirgan 0.15 % gel 1 drp RIGHT EYE 4X/DAY Emgality Pen 120 mg/mL pen injector SUBCUT Patient Comments: INHALE 120 SUBCUTANEOUSLY (UNDER THE SKIN) 1 time a day EVERY 30 days FOR MIGRAINE losartan 100 mg tablet 100 mg PO moxifloxacin 0.5 % drops 1 drp RIGHT EYE Q2H Primary Care Provider: Nasreen Sutton Referrals: Nasreen Sutton MD [Primary Care Provider] - Print Language: Azeri
[2024-09-04 22:00] VITALS: BP 123/83; PULSE 76; RESP 18; O2SAT 98
[2024-09-04 22:05] LABS: Hematocrit 37.7 % (37-47); Hemoglobin 11.9 g/dL (12.0-15.0); Immature Granulocytes Count 0.050 X10^3/uL (0.0-0.0); Mean Corp Hgb Conc 31.6 g/dL (32-36); Mean Corpuscular Volume 95.0 fL (81-99); Mean Platelet Vol. 10.5 fl (6.2-12.0); NRBC Flagged by Analyzer 0 % (0-5); Platelet Count 428 K/mm3 (150-450); RBC Distribution Width CV 17.8 % (11.6-14.6); RBC Distribution Width SD 61.9 fl (35.1-43.9); Red Blood Count 3.97 M/mm3 (4.2-5.4); White Blood Count 12.0 K/mm3 (4.4-11.0)
--- NOTE | 2024-09-04 22:30 | RAD_ITS ---
PROCEDURE: CHEST 1 VIEW (PORTABLE) 09/04/2024 REASON FOR EXAM: CHEST PAIN TECHNIQUE: Frontal view of the chest. COMPARISON: 08/28/2024 FINDINGS: Lungs/Pleura: Clear. No pneumothorax or sizable pleural effusion. Heart/Mediastinum: Cardiomegaly, stable. Bones/Soft tissues: Unremarkable. RAD/Chest 1 View (Portable) IMPRESSION: Cardiomegaly. No evidence of acute pulmonary disease. Reading Location: [id number]
[2024-09-04 22:31] LABS: Lipase 46 U/L (13-75)
[2024-09-04 22:59] LABS: AST(SGOT) 31 U/L (<=31); Alanine Aminotransfer ALT/SGPT 12 U/L (<=34); Albumin, Serum 3.7 g/dL (3.5-5.0); Alkaline Phosphatase 133 U/L (35-104); Anion Gap 15 (5-15); BUN 13 mg/dL (4-19); BUN/Creat Ratio 11.1 RATIO (10-20); Calcium,Total 9.4 mg/dL (7.6-11.0); Carbon Dioxide 25.0 mmol/L (21.0-32.0); Chloride 101 mmol/L (98-108); Estimated Creatinine Clearance 69.14 ml/min (50-250); Globulin 3.3 g/dL (2.2-4.2); Glucose 107 mg/dL (70-99); Potassium 3.1 mmol/L (3.3-5.1); Troponin T High Sensitivity 27 ng/L (<=14)
[2024-09-05] VITALS: BP 143/93; PULSE 71; RESP 18; O2SAT 100
[2024-09-05 01:05] LABS: Troponin T High Sens 2 HR 23 ng/L (<=14)
[2024-09-05 01:13] VITALS: BP 125/86; PULSE 73; RESP 18; TEMP 36.8; O2SAT 100
== END 2024-09-05 01:29 | disposition home or self-care (01) ==
PROVIDERS: Emergency Provider Emergency Medicine; PCP Family Medicine; Visit Provider Emergency Medicine
DX: H57.11 Ocular pain, right eye (principal); J44.9 Chronic obstructive pulmonary disease, unspecified; E66.01 Morbid (severe) obesity due to excess calories; Z68.41 Body mass index [BMI] 40.0-44.9, adult; E11.22 Type 2 diabetes mellitus with diabetic chronic kidney disease; Z79.4 Long term (current) use of insulin; G89.29 Other chronic pain; R10.13 Epigastric pain; R07.89 Other chest pain; N18.9 Chronic kidney disease, unspecified; H54.8 Legal blindness, as defined in USA; E78.00 Pure hypercholesterolemia, unspecified; I12.9 Hypertensive chronic kidney disease with stage 1 through stage 4 chronic kidney disease, or unspecified chronic kidney disease; Z79.01 Long term (current) use of anticoagulants; Z79.51 Long term (current) use of inhaled steroids; Z79.899 Other long term (current) drug therapy; Z86.711 Personal history of pulmonary embolism; Z86.718 Personal history of other venous thrombosis and embolism; Z86.73 Personal history of transient ischemic attack (TIA), and cerebral infarction without residual deficits
CPT/HCPCS: 36415; 71045; 80053; 83690; 84484; 85025; 93005; 99284; A4216

== ENCOUNTER 2024-09-09 13:09 | Emergency (ER) | payer MEDICARE, MEDICAID, SELFPAY ==
[2024-09-09 13:09] VITALS: BP 180/110; PULSE 94; RESP 18; TEMP 37; O2SAT 96; BMI 63.8
--- NOTE | 2024-09-09 13:13 | EX.ED.GENINJ ---
HPI History of Present Illness Chief Complaint: Nausea/Vomiting/Diarrhea [facility] Medical History Toxic metabolic encephalopathy MARYANA (acute kidney injury) Noncompliance with medication regimen Acute hypoxic on chronic hypercapnic respiratory failure Myxedema coma Elevated serum creatinine Sinus bradycardia on ECG Kidney failure MARYANA (acute kidney injury) Fatigue MARYANA (acute kidney injury) Walker as ambulation aid Ambulates with cane Low iron History of renal disease High cholesterol DVT (deep venous thrombosis) PONV (postoperative nausea and vomiting) Stroke/cerebrovascular accident Sleep apnea Fall Cardiology follow-up encounter Scalp hematoma Pulmonary embolism Post-menopausal Thyroid disease Injury of head and neck Dietary restriction Difficulty swallowing BiPAP (biphasic positive airway pressure) dependence COPD (chronic obstructive pulmonary disease) Shortness of breath on exertion Leg cramps History of pain when walking History of edema History of echocardiogram History of stress test Syncope Abnormal glucose Noncompliance DAVY treated with BiPAP UTI (urinary tract infection) Vitamin D deficiency Restless leg syndrome Vitamin B12 deficiency Iron deficiency anemia History of chronic back pain Wears glasses Arthritis Non-smoker Hydronephrosis Depression Anemia Migraine headache Chronic kidney disease Diabetes mellitus Gout Celiac disease Hyperlipidemia GERD (gastroesophageal reflux disease) Dyspnea on exertion Chest pain Hypersomnia Cardiac murmur Microcytic anemia Hypertension Morbid obesity with BMI of 40.0-44.9, adult Asthma Hypothyroidism Anxiety Home Medications ?Medication ?Instructions ?Recorded ?Last Taken ?Type carboxymethylcellulose sodium 0.5 2 drp RIGHT EYE Q1H PRN DRY EYES 05/11/24 06/27/24 Rx % eye drops (Refresh Tears) #0 mL tramadol 50 mg tablet 50 mg PO TID PRN pain 3 days #9 05/11/24 06/27/24 Rx tabs atorvastatin 40 mg tablet 40 mg PO QHS cholestrol 06/27/24 06/26/24 History insulin lispro 100 unit/mL 1 sliding scale dose subcut ACHS 06/27/24 06/27/24 History subcutaneous pen (Humalog KwikPen diabetes (U-100) Insulin) rimegepant 75 mg disintegrating 75 mg PO DAILY PRN migraine 06/27/24 Unknown History tablet (Nurtec ODT) citalopram 20 mg tablet 40 mg (2 x 20 mg) PO DAILY 08/08/24 06/27/24 Rx depression #1 TAB levothyroxine 150 mcg tablet 150 mcg PO DAILY@0600 #30 tabs 08/08/24 Unknown Rx apixaban 5 mg (74 tabs) tablets in See Rx Instructions .Route 08/28/24 Unknown Rx a dose pack (Eliquis DVT-PE Treat .COMPLEX #74 tabs 30D Start) budesonide-formoterol HFA 160 2 puff inhalation BID 09/02/24 Unknown History mcg-4.5 mcg/actuation aerosol inhaler (Symbicort) cyclobenzaprine 5 mg tablet 5 mg PO QPM 09/02/24 Unknown History diclofenac sodium 3 % topical gel 1 ea topical BID PRN PRN pain 09/02/24 Unknown History (scale score 1-3) ezetimibe 10 mg tablet 10 mg PO DAILY 09/02/24 Unknown History fluticasone propionate 50 2 spray intranasal BID allergies 09/02/24 Unknown History mcg/actuation nasal spray,suspension furosemide 40 mg tablet 40 mg PO DAILY 09/02/24 Unknown History gabapentin 100 mg capsule 100 mg PO TID pain 09/02/24 Unknown History gabapentin 300 mg capsule 300 mg PO TID 09/02/24 Unknown History galcanezumab-gnlm 120 mg/mL mg subcut 09/02/24 Unknown History subcutaneous pen injector (Emgality Pen) ganciclovir 0.15 % eye gel (Zirgan) 1 drp RIGHT EYE 4X/DAY 09/02/24 Unknown History isosorbide mononitrate 30 mg 30 mg PO DAILY 09/02/24 Unknown History tablet,extended release 24 hr lorazepam 0.5 mg tablet 0.5 mg PO TID PRN anxiety 09/02/24 Unknown History losartan 100 mg tablet 100 mg PO blood pressure 09/02/24 Unknown History moxifloxacin 0.5 % eye drops 1 drp RIGHT EYE Q2H 09/02/24 Unknown History Allergy/AdvReac Type Severity Reaction Status Date / Time hydrochlorothiazide AdvReac Intermediate Contributes Verified 09/09/24 13:10 to gout naproxen (From Naprosyn) AdvReac Intermediate Nausea Verified 09/09/24 13:10 aspirin AdvReac Nausea Verified 09/09/24 13:10 Penicillins AdvReac Other Verified 09/09/24 13:10 Family History Father , Age 72 Hypertension Mother CAD (coronary artery disease) Myocardial infarction, Onset Age: 55 Hypertension Sister CAD (coronary artery disease) Brother Cancer Surgical History History of cardiac catheterization History of History of carpal tunnel surgery of right wrist History of carpal tunnel surgery of left wrist Hx of cystoscopy History of left heart catheterization (11/11/20) history of uterine ablation Social History household members: spouse housing: apartment Smoking Status: Never smoker alcohol intake: never substance use type: does not use caffeine: No EXAM Physical Exam Const Vital Signs: 09/09/24 13:09 Temperature 98.6 F Temperature Source Oral Pulse Rate 94 Respiratory Rate 18 Blood Pressure 180/110 H Blood Pressure Mean 133 Pulse Ox 96 Oxygen Delivery Method Room Air MDM MDM MDM Narrative Medical decision making narrative: HISTORY OF PRESENT ILLNESS: Chief complaint: Nausea vomit 54-year-old female presents with nausea vomiting diarrhea for last 8 days. Denies chest pain or abdominal pain. No sick contacts. No recent travel. No antibiotics. Was seen in the ED approximate 5 days ago for chest pain. Noted nausea at that time did not receive antinausea medicine. States he has no antinausea medicine at home. Denies shortness of breath. No blood in her vomit. No blood in her stool REVIEW OF SYSTEMS: Pertinent positives: Nausea vomiting and diarrhea Pertinent negatives: As per HPI PHYSICAL EXAM: Nursing triage notes reviewed, Vital signs reviewed Constitutional: please see mdm HENT: MMM Eyes: Pupils equal round and reactive to light, Extraocular muscles intact Neck: No stridor, no JVD, full neck ROM Lungs: Clear to auscultation, No wheezing or rales. No increased work of breathing, no conversational dyspnea, no accessory muscle use, no nasal flaring. No respiratory distress noted Heart: Regular rate and rhythm, No murmurs, No rubs and No gallops, 2+ distal pulses (radial, femoral, posterior tibial) in all extremities Abdomen: Soft, there is no tenderness, rigidity, rebound or guarding, no obvious peritoneal signs, no palpable pulsatile abdominal masses, no auscultated abdominal bruit : No CVAT Extremities: No edema Neuro: No new focal neurological deficits, cranial nerves II through XII intact, 5/5 strength in all present extremities. Intact sensation to light touch in all present extremities, 2+ reflexes bilateral patella tendons. Skin: No rash or lesions noted MEDICAL DECISION MAKING: Chief Complaint: please see HPI External records reviewed: Reviewed recent ED evaluation, reviewed past medical history, reviewed current medications, reviewed allergies Factors affecting care: PE on anticoagulation, celiac disease, hyperlipidemia, GERD, chronic chest pain, with obesity, hypertension, hypothyroidism, asthma, anxiety, DAVY on BiPAP, COPD, Social determinants of health: none History obtained from others: none Consults: none [facility] Narrative: The patient was initially hypertensive with a blood pressure 180/110 otherwise afebrile and nontoxic-appearing. Abdominal exam is benign. I considered the following differential diagnosis: Dehydration, I did not obtain labs at this time as patient had recent lab evaluation 5 days ago which was unremarkable. Initially treated symptomatically with Zofran. Attempted p.o. challenge with oral fluids. Patient able to tolerate p.o. fluid. Will give Zofran as an outpatient. Encourage patient to continue to take home antihypertensives including losartan, eat a low-sodium diet and perform regular exercise The patient and/or family, caregivers express understanding. The patient and/or family, caregivers agrees with the plan. Shared decision making: I will have a discussion with the patient and or visitors regarding risk/benefits of further testing or admission. They will be made aware of of the risk/benefits inherent in this decision they will be given the opportunity to voice understanding. Total critical care time today provided was at least 0 minutes. This excludes separately billable procedures. Critical care time (if documented) is secondary to the patient having high probability of clinically significant/life threatening deterioration in the patient's condition which required my urgent intervention. Impression: 1. Nausea vomiting diarrhea 2. Hypertension Dispo: Discharge This note was generated with [employer] dictation software. It may contain incorrect words, spelling, and punctuation that were not noted in review of the chart prior to signing. Discharge Plan Triage Chief Complaint: Nausea/Vomiting/Diarrhea ED Provider: Shawn Lloyd Dx/Rx/DC Orders Prescriptions: No Action Asaf DVT-PE Treat 30D Start 5 mg (74 tabs) tablets,dose pack See Rx Instructions .Route .COMPLEX Qty: 74 0RF Rx Instructions: orally per package directions carboxymethylcellulose sodium [Refresh Tears] 0.5 % Drops 2 drp RIGHT EYE Q1H PRN (Reason: DRY EYES) Qty: 0 0RF tramadol 50 mg tablet 50 mg PO TID PRN (Reason: pain) 3 Days Qty: 9 0RF atorvastatin 40 mg tablet 40 mg PO QHS Nurtec ODT 75 mg tablet,disintegrating 75 mg PO DAILY PRN (Reason: migraine) insulin lispro [Humalog KwikPen Insulin] 100 unit/mL Insulin Pen 1 sliding scale dose subcut ACHS Protocol: 2. Sliding Scale Insulin Low-Med Dosing Condition: 150-209 mg/dl = 1 unit Condition: 210-269 mg/dl = 2 units Condition: 270-329 mg/dl = 3 units Condition: 330-389 mg/dl = 4 units Condition: 390-449 mg/dl = 5 units Condition: Greater than 449 call physician Protocol Text: Suggested for: - Patients on Total Daily Insulin Dose of 28-36 units - Average body habitus patients LOW MEDIUM DOSING ALGORITHM levothyroxine 150 mcg Tablet 150 mcg PO DAILY@0600 Qty: 30 0RF citalopram 20 mg Tablet 40 mg PO DAILY Qty: 1 0RF diclofenac sodium 3 % gel 1 ea topical BID PRN PRN (Reason: pain (scale score 1-3)) cyclobenzaprine 5 mg tablet 5 mg PO QPM budesonide-formoterol [Symbicort] 160-4.5 mcg/actuation HFA aerosol inhaler 2 puff INHALATION BID furosemide 40 mg tablet 40 mg PO DAILY isosorbide mononitrate 30 mg tablet extended release 24 hr 30 mg PO DAILY lorazepam 0.5 mg tablet 0.5 mg PO TID PRN gabapentin 300 mg capsule 300 mg PO TID gabapentin 100 mg capsule 100 mg PO TID fluticasone propionate 50 mcg/actuation spray,suspension 2 spray INTRANASAL BID ezetimibe 10 mg tablet 10 mg PO DAILY Zirgan 0.15 % gel 1 drp RIGHT EYE 4X/DAY Emgality Pen 120 mg/mL pen injector SUBCUT Patient Comments: INHALE 120 SUBCUTANEOUSLY (UNDER THE SKIN) 1 time a day EVERY 30 days FOR MIGRAINE losartan 100 mg tablet 100 mg PO moxifloxacin 0.5 % drops 1 drp RIGHT EYE Q2H Primary Care Provider: Nasreen Sutton Referrals: Nasreen Sutton MD [Primary Care Provider] - Print Language: Swiss
[2024-09-09 15:29] VITALS: BP 129/74; PULSE 91; RESP 18; TEMP 37.1; O2SAT 94
== END 2024-09-09 15:31 | disposition home or self-care (01) ==
PROVIDERS: Emergency Provider Emergency Medicine; PCP Family Medicine; Visit Provider Emergency Medicine
DX: R11.2 Nausea with vomiting, unspecified (principal); R19.7 Diarrhea, unspecified; I10 Essential (primary) hypertension; Z79.899 Other long term (current) drug therapy
CPT/HCPCS: 99282; A4216

== ENCOUNTER 2024-09-20 14:18 | Emergency (ER) | payer MEDICARE, MEDICAID, SELFPAY ==
[2024-09-20 14:18] VITALS: BP 153/93; PULSE 88; RESP 15; TEMP 36.1; O2SAT 100
[2024-09-20 16:18] VITALS: BP 158/103; PULSE 92; RESP 16; O2SAT 97
[2024-09-20 16:29] LABS: Mucous, Urine 0 SEEN /hpf (<or=2+); Red Blood Cells-Urine 0 SEEN /hpf (0-5)
[2024-09-20 16:35] LABS: Hematocrit 39.2 % (37-47); Hemoglobin 12.6 g/dL (12.0-15.0); Immature Granulocytes Count 0.090 X10^3/uL (0.0-0.0); Mean Corp Hgb Conc 32.1 g/dL (32-36); Mean Corpuscular Volume 94.0 fL (81-99); Mean Platelet Vol. 10.2 fl (6.2-12.0); NRBC Flagged by Analyzer 0 % (0-5); Platelet Count 539 K/mm3 (150-450); RBC Distribution Width CV 17.7 % (11.6-14.6); RBC Distribution Width SD 62.1 fl (35.1-43.9); Red Blood Count 4.17 M/mm3 (4.2-5.4); White Blood Count 15.1 K/mm3 (4.4-11.0)
[2024-09-20 16:46] LABS: Internal QC Validated? YES +Cl - CLEAR BKGD; Pregnancy, Serum, hCG Quali. NEGATIVE Negative
[2024-09-20 16:47] LABS: Record Kit Lot#, Serum Preg. 962302
[2024-09-20 16:49] LABS: Lipase 32 U/L (13-75)
--- NOTE | 2024-09-20 16:50 | RAD_ITS ---
PROCEDURE: ACUTE ABDOMEN INC CHEST 09/20/2024 REASON FOR EXAM: PAIN TECHNIQUE: ACUTE ABDOMEN INC CHEST COMPARISON: None. FINDINGS: The heart is normal in size. The lungs are clear. No acute osseous abnormalities. Dense colonic and rectal stool suggestive of constipation. RAD/Acute Abdomen Inc Chest IMPRESSION: No acute abnormalities. Dense colonic stool. Reading Location: [id number]
[2024-09-20 16:51] LABS: AST(SGOT) 34 U/L (<=31); Alanine Aminotransfer ALT/SGPT 15 U/L (<=34); Albumin, Serum 3.5 g/dL (3.5-5.0); Alkaline Phosphatase 152 U/L (35-104); Anion Gap 16 (5-15); BUN 10 mg/dL (4-19); BUN/Creat Ratio 9.7 RATIO (10-20); Calcium,Total 9.4 mg/dL (7.6-11.0); Carbon Dioxide 26.1 mmol/L (21.0-32.0); Chloride 98 mmol/L (98-108); Globulin 3.7 g/dL (2.2-4.2); Glucose 110 mg/dL (70-99); Potassium 3.0 mmol/L (3.3-5.1)
--- NOTE | 2024-09-20 16:58 | EX.ED.DYSGE1 ---
HPI History of Present Illness Chief Complaint: Abd Pain [facility] Medical History Toxic metabolic encephalopathy MARYANA (acute kidney injury) Noncompliance with medication regimen Acute hypoxic on chronic hypercapnic respiratory failure Myxedema coma Elevated serum creatinine Sinus bradycardia on ECG Kidney failure MARYANA (acute kidney injury) Fatigue MARYANA (acute kidney injury) Walker as ambulation aid Ambulates with cane Low iron History of renal disease High cholesterol DVT (deep venous thrombosis) PONV (postoperative nausea and vomiting) Stroke/cerebrovascular accident Sleep apnea [facility] follow-up encounter Scalp hematoma Pulmonary embolism Post-menopausal Thyroid disease Injury of head and neck Dietary restriction Difficulty swallowing BiPAP (biphasic positive airway pressure) dependence COPD (chronic obstructive pulmonary disease) Shortness of breath on exertion Leg cramps History of pain when walking History of edema History of echocardiogram History of stress test Syncope Abnormal glucose Noncompliance DAVY treated with BiPAP UTI (urinary tract infection) Vitamin D deficiency Restless leg syndrome Vitamin B12 deficiency Iron deficiency anemia History of chronic back pain Wears glasses Arthritis Non-smoker Hydronephrosis Depression Anemia Migraine headache Chronic kidney disease Diabetes mellitus Gout Celiac disease Hyperlipidemia GERD (gastroesophageal reflux disease) Dyspnea on exertion Chest pain Hypersomnia Cardiac murmur Microcytic anemia Hypertension Morbid obesity with BMI of 40.0-44.9, adult Asthma Hypothyroidism Anxiety Home Medications ?Medication ?Instructions ?Recorded ?Last Taken ?Type carboxymethylcellulose sodium 0.5 2 drp RIGHT EYE Q1H PRN DRY EYES 05/11/24 06/27/24 Rx % eye drops (Refresh Tears) #0 mL tramadol 50 mg tablet 50 mg PO TID PRN pain 3 days #9 05/11/24 06/27/24 Rx tabs atorvastatin 40 mg tablet 40 mg PO QHS cholestrol 06/27/24 06/26/24 History insulin lispro 100 unit/mL 1 sliding scale dose subcut ACHS 06/27/24 06/27/24 History subcutaneous pen (Humalog KwikPen diabetes (U-100) Insulin) rimegepant 75 mg disintegrating 75 mg PO DAILY PRN migraine 06/27/24 Unknown History tablet (Nurtec ODT) citalopram 20 mg tablet 40 mg (2 x 20 mg) PO DAILY 08/08/24 06/27/24 Rx depression #1 TAB levothyroxine 150 mcg tablet 150 mcg PO DAILY@0600 #30 tabs 08/08/24 Unknown Rx apixaban 5 mg (74 tabs) tablets in See Rx Instructions .Route 08/28/24 Unknown Rx a dose pack (Allyqushayy DVT-PE Treat .COMPLEX #74 tabs 30D Start) budesonide-formoterol HFA 160 2 puff inhalation BID 09/02/24 Unknown History mcg-4.5 mcg/actuation aerosol inhaler (Symbicort) cyclobenzaprine 5 mg tablet 5 mg PO QPM 09/02/24 Unknown History diclofenac sodium 3 % topical gel 1 ea topical BID PRN PRN pain 09/02/24 Unknown History (scale score 1-3) ezetimibe 10 mg tablet 10 mg PO DAILY 09/02/24 Unknown History fluticasone propionate 50 2 spray intranasal BID allergies 09/02/24 Unknown History mcg/actuation nasal spray,suspension furosemide 40 mg tablet 40 mg PO DAILY 09/02/24 Unknown History gabapentin 100 mg capsule 100 mg PO TID pain 09/02/24 Unknown History gabapentin 300 mg capsule 300 mg PO TID 09/02/24 Unknown History galcanezumab-gnlm 120 mg/mL mg subcut 09/02/24 Unknown History subcutaneous pen injector (Emgality Pen) ganciclovir 0.15 % eye gel (Zirgan) 1 drp RIGHT EYE 4X/DAY 09/02/24 Unknown History isosorbide mononitrate 30 mg 30 mg PO DAILY 09/02/24 Unknown History tablet,extended release 24 hr lorazepam 0.5 mg tablet 0.5 mg PO TID PRN anxiety 09/02/24 Unknown History losartan 100 mg tablet 100 mg PO blood pressure 09/02/24 Unknown History moxifloxacin 0.5 % eye drops 1 drp RIGHT EYE Q2H 09/02/24 Unknown History ondansetron 4 mg disintegrating 4 mg PO Q8H PRN PRN Nausea #10 tabs 09/09/24 Unknown Rx tablet Allergy/AdvReac Type Severity Reaction Status Date / Time hydrochlorothiazide AdvReac Intermediate Contributes Verified 09/20/24 14:18 to gout naproxen (From Naprosyn) AdvReac Intermediate Nausea Verified 09/20/24 14:18 aspirin AdvReac Nausea Verified 09/20/24 14:18 Penicillins AdvReac Other Verified 09/20/24 14:18 Family History Father , Age 72 Hypertension Mother CAD (coronary artery disease) Myocardial infarction, Onset Age: 55 Hypertension Sister CAD (coronary artery disease) Brother Cancer Surgical History History of cardiac catheterization History of History of carpal tunnel surgery of right wrist History of carpal tunnel surgery of left wrist Hx of cystoscopy History of left heart catheterization (11/11/20) history of uterine ablation Social History household members: spouse housing: apartment Smoking Status: Never smoker alcohol intake: never substance use type: does not use caffeine: No EXAM Physical Exam Const Vital Signs: 09/20/24 14:18 09/20/24 16:18 09/20/24 18:00 Temperature 97 F L Temperature Source Temporal Pulse Rate 88 92 Respiratory Rate 15 16 Blood Pressure 153/93 H 158/103 H Blood Pressure Mean 113 121 Pulse Ox 100 97 93 Oxygen Delivery Method Room Air Room Air [facility] Lab Data Attestation: I reviewed the patient's lab results. Lab results narrative: CBC reveals elevated white count. There is a slight shift. Electrolyte panel reveals a potassium of 3.0. CO2 is normal with an elevated anion gap. Glucose is elevated 152. Lipase and transaminases are normal. Urinalysis reveals a contaminated specimen with 25 epithelial cells. No further interpretation was undertaken. 6 gravity was 1.020. Macro was positive for proteins, ketones and occult blood. Microscopic revealed no red blood cells. Labs: Laboratory Results - last 24 hr 09/20/24 09/20/24 09/20/24 14:23 14:23 16:20 WBC Cancelled 15.1 H Corrected WBC Cancelled RBC Cancelled 4.17 L Hgb Cancelled 12.6 Hct Cancelled 39.2 MCV Cancelled 94.0 MCH Cancelled 30.2 MCHC Cancelled 32.1 RDW Std Deviation Cancelled 62.1 H RDW Coeff of Alfredo Cancelled 17.7 H Plt Count Cancelled 539 H MPV Cancelled 10.2 Immature Gran % (Auto) Cancelled 0.600 Neut % (Auto) Cancelled 76.8 H Lymph % (Auto) Cancelled 14.3 L Burke % (Auto) Cancelled 6.4 Eos % (Auto) Cancelled 1.4 Baso % (Auto) Cancelled 0.5 Absolute Neuts (auto) Cancelled 11.6 H Absolute Lymphs (auto) Cancelled 2.16 Total Counted Cancelled Neutrophils % (Manual) Cancelled Band Neutrophils % Cancelled Lymphocytes % (Manual) Cancelled Monocytes % (Manual) Cancelled Eosinophils % (Manual) Cancelled Basophils % (Manual) Cancelled Metamyelocytes % Cancelled Myelocytes % Cancelled Promyelocytes % Cancelled Blast Cells % Cancelled Plasma Cell % (Manual) Cancelled Other Cells % Cancelled Nucleated RBC % Cancelled 0 Nucleated RBCs/100 WBC Cancelled Differential Comment Cancelled Diff Path Review Cancelled Hypersegmented Neuts Cancelled Atypical Lymphocytes Cancelled Reactive Lymphocytes Cancelled Smudge Cells Cancelled Toxic Granulation Cancelled Toxic Vacuolation Cancelled Dohle Bodies Cancelled Raisa Rods Cancelled Platelet Estimate Cancelled Plt Morphology Comment Cancelled RBC Morphology Cancelled Cancelled Polychromasia Cancelled Hypochromasia Cancelled Basophilic Stippling Cancelled Anisocytosis Cancelled Microcytosis Cancelled Macrocytosis Cancelled Spherocytes Cancelled Sickle Cells Cancelled Target Cells Cancelled Tear Drop Cells Cancelled Ovalocytes Cancelled Stomatocytes Cancelled Romreo-Jessie Bodies Cancelled Gissel Cells Cancelled Bite Cells Cancelled Crenated Cell Cancelled Acanthocytes (Spur) Cancelled Rouleaux Cancelled Schistocytes Cancelled Sodium Cancelled 139 Potassium Cancelled 3.0 L Chloride Cancelled 98 Carbon Dioxide Cancelled 26.1 Anion Gap Cancelled 16 H BUN Cancelled 10 Creatinine Cancelled 1.00 Estim Creat Clear Calc Cancelled Est GFR (MDRD) Non-Af Cancelled 67 BUN/Creatinine Ratio Cancelled 9.7 L Glucose Cancelled 110 H Calcium Cancelled 9.4 Total Bilirubin 0.36 AST 34 H ALT 15 Alkaline Phosphatase 152 H Total Protein 7.2 Albumin 3.5 Globulin 3.7 Albumin/Globulin Ratio 1.0 Lipase 32 Serum , Qual NEGATIVE Urine Color Straw Urine Clarity Sl. Cloudy Urine pH 6.0 Ur Specific [place] 1.020 Urine Protein 30 H Urine Glucose (UA) Normal Urine Ketones 5 H Urine Occult Blood 10 H Urine Nitrite Negative Urine Bilirubin 1 H Urine Urobilinogen 1 H Ur Leukocyte Esterase 100 H Urine RBC 0 SEEN Urine WBC 50-100 SEEN Ur Squamous Epith Cells 10-25 SEEN Urine Bacteria 1+ Hyaline Casts 0-5 SEEN Urine Mucus 0 SEEN Radiography Chest X-Ray - ED: Read by ED Physician (Abdominal series which includes a single view chest and 2 views of the abdomen reveals increased fecal stasis. There is no abnormal air-fluid levels. There is no evidence of pneumoperitoneum. The chest portion reveals no effusion, infiltrate. Cardiac silhouette is unremarkable. Hilum is unremar) Diagnostic Testing: Clinical Impression(s) from Imaging Studies Acute Abdomen Series 09/20/24 16:50 IMPRESSION: No acute abnormalities. Dense colonic stool. Reading Location: [facility] Treatment and Re-Evaluation :: Patient was informed of results. She be discharged home. Discharge Plan Triage Chief Complaint: Abd Pain ED Provider: Jcarlos Anthony Dx/Rx/DC Orders Clinical Impression: Obstipation, Leukocytosis, Elevated blood pressure reading with diagnosis of hypertension, Thrombocytosis, Acute hypokalemia, High anion gap Instructions: ED Constipation (Adult) Prescriptions: No Action Eliquis DVT-PE Treat 30D Start 5 mg (74 tabs) tablets,dose pack See Rx Instructions .Route .COMPLEX Qty: 74 0RF Rx Instructions: orally per package directions carboxymethylcellulose sodium [Refresh Tears] 0.5 % Drops 2 drp RIGHT EYE Q1H PRN (Reason: DRY EYES) Qty: 0 0RF tramadol 50 mg tablet 50 mg PO TID PRN (Reason: pain) 3 Days Qty: 9 0RF atorvastatin 40 mg tablet 40 mg PO QHS Nurtec ODT 75 mg tablet,disintegrating 75 mg PO DAILY PRN (Reason: migraine) insulin lispro [Humalog KwikPen Insulin] 100 unit/mL Insulin Pen 1 sliding scale dose subcut ACHS Protocol: 2. Sliding Scale Insulin Low-Med Dosing Condition: 150-209 mg/dl = 1 unit Condition: 210-269 mg/dl = 2 units Condition: 270-329 mg/dl = 3 units Condition: 330-389 mg/dl = 4 units Condition: 390-449 mg/dl = 5 units Condition: Greater than 449 call physician Protocol Text: Suggested for: - Patients on Total Daily Insulin Dose of 28-36 units - Average body habitus patients LOW MEDIUM DOSING ALGORITHM levothyroxine 150 mcg Tablet 150 mcg PO DAILY@0600 Qty: 30 0RF citalopram 20 mg Tablet 40 mg PO DAILY Qty: 1 0RF diclofenac sodium 3 % gel 1 ea topical BID PRN PRN (Reason: pain (scale score 1-3)) cyclobenzaprine 5 mg tablet 5 mg PO QPM budesonide-formoterol [Symbicort] 160-4.5 mcg/actuation HFA aerosol inhaler 2 puff INHALATION BID furosemide 40 mg tablet 40 mg PO DAILY isosorbide mononitrate 30 mg tablet extended release 24 hr 30 mg PO DAILY lorazepam 0.5 mg tablet 0.5 mg PO TID PRN gabapentin 300 mg capsule 300 mg PO TID gabapentin 100 mg capsule 100 mg PO TID fluticasone propionate 50 mcg/actuation spray,suspension 2 spray INTRANASAL BID ezetimibe 10 mg tablet 10 mg PO DAILY Zirgan 0.15 % gel 1 drp RIGHT EYE 4X/DAY Emgality Pen 120 mg/mL pen injector SUBCUT Patient Comments: INHALE 120 SUBCUTANEOUSLY (UNDER THE SKIN) 1 time a day EVERY 30 days FOR MIGRAINE losartan 100 mg tablet 100 mg PO moxifloxacin 0.5 % drops 1 drp RIGHT EYE Q2H ondansetron 4 mg tablet,disintegrating 4 mg PO Q8H PRN PRN (Reason: Nausea) Qty: 10 0RF Primary Care Provider: Nasreen Sutton Referrals: Nasreen Sutton MD [Primary Care Provider] - 3-5 Days if not improving Activity Restrictions/Additional Instructions: 1. Upon awakening drink 10 ounces of mag citrate. 2. 4 hours after you drink the mag citrate 1 full cap of MiraLAX in a full glass of your favorite nonalcoholic beverage. 3. Full cap of MiraLAX every 1-2 hours until you start to have results. 4. Starting Tuesday 1 cap of MiraLAX in the morning and evening for 1 week. 5. After the first week decrease to 1 cap of MiraLAX daily Print Language: [place] Disposition Disposition: Home, Self Care
[2024-09-20 17:09] LABS: Color, Urine Straw (Yellow); Glucose, Dipstick Normal (Normal); Ketone-Dipstick 5 mg/dl (Negative); Leukocyte Esterase-Dipstick 100 /ul (Negative); Nitrite-Dipstick Negative (Negative); Occult Blood-Urine 10 /ul (Negative); Protein-Dipstick 30 mg/dl (Negative); Specific Gravity, Urine 1.020 (1.002-1.030)
[2024-09-20 17:18] LABS: Urine Bilirubin Dipstick 1 mg/dL (Negative)
[2024-09-20 17:32] LABS: Squamous Epithelial Cells - UA 10-25 SEEN /hpf (5-10)
[2024-09-20 18:00] VITALS: O2SAT 93
[2024-09-20 18:32] VITALS: BP 115/86; PULSE 87; RESP 16; TEMP 36.1; O2SAT 95
== END 2024-09-20 18:33 | disposition home or self-care (01) ==
PROVIDERS: Emergency Provider Emergency Medicine; PCP Family Medicine; Visit Provider Emergency Medicine
DX: R10.9 Unspecified abdominal pain (principal); J44.9 Chronic obstructive pulmonary disease, unspecified; E11.22 Type 2 diabetes mellitus with diabetic chronic kidney disease; Z79.4 Long term (current) use of insulin; K59.00 Constipation, unspecified; D72.829 Elevated white blood cell count, unspecified; E78.00 Pure hypercholesterolemia, unspecified; N18.9 Chronic kidney disease, unspecified; I12.9 Hypertensive chronic kidney disease with stage 1 through stage 4 chronic kidney disease, or unspecified chronic kidney disease; R03.0 Elevated blood-pressure reading, without diagnosis of hypertension; D75.839 Thrombocytosis, unspecified; Z86.73 Personal history of transient ischemic attack (TIA), and cerebral infarction without residual deficits; G47.33 Obstructive sleep apnea (adult) (pediatric); Z99.81 Dependence on supplemental oxygen; Z79.899 Other long term (current) drug therapy; E03.9 Hypothyroidism, unspecified; Z79.890 Hormone replacement therapy; F32.A Depression, unspecified; Z79.01 Long term (current) use of anticoagulants; Z79.51 Long term (current) use of inhaled steroids; F41.9 Anxiety disorder, unspecified; E87.6 Hypokalemia
CPT/HCPCS: 74022; 80053; 81001; 83690; 84703; 85025; 96374; 96375; 99283; A4216; J2405

== ENCOUNTER 2024-09-25 04:18 | Emergency (ER) | payer MEDICARE, MEDICAID, SELFPAY ==
[2024-09-25 04:19] VITALS: BP 131/82; PULSE 96; RESP 18; TEMP 36.4; O2SAT 94; BMI 51.2
--- NOTE | 2024-09-25 04:45 | EDS_ITS ---
HPI HPI - GI History of Present Illness Chief Complaint: Abd Pain Informant: patient and EMS Narrative Narrative: 54-year-old female states she has been having abdominal pain and diarrhea for the last couple days. She vomited once last night, no blood. She has had no hematochezia or melena. No fevers or chills. She has had these symptoms in the past. Indicates that the majority of the pain is upper abdomen and left upper quadrant, worse with eating and drinking. No dyspnea, cough, fevers. Prior similar symptoms: Yes PFSH PFS Medical History Toxic metabolic encephalopathy MARYANA (acute kidney injury) Noncompliance with medication regimen Acute hypoxic on chronic hypercapnic respiratory failure Myxedema coma Elevated serum creatinine Sinus bradycardia on ECG Kidney failure MARYANA (acute kidney injury) Fatigue MARYANA (acute kidney injury) Walker as ambulation aid Ambulates with cane Low iron History of renal disease High cholesterol DVT (deep venous thrombosis) PONV (postoperative nausea and vomiting) Stroke/cerebrovascular accident Sleep apnea Fall Cardiology follow-up encounter Scalp hematoma Pulmonary embolism Post-menopausal Thyroid disease Injury of head and neck Dietary restriction Difficulty swallowing BiPAP (biphasic positive airway pressure) dependence COPD (chronic obstructive pulmonary disease) Shortness of breath on exertion Leg cramps History of pain when walking History of edema History of echocardiogram History of stress test Syncope Abnormal glucose Noncompliance DAVY treated with BiPAP UTI (urinary tract infection) Vitamin D deficiency Restless leg syndrome Vitamin B12 deficiency Iron deficiency anemia History of chronic back pain Wears glasses Arthritis Non-smoker Hydronephrosis Depression Anemia Migraine headache Chronic kidney disease Diabetes mellitus Gout Celiac disease Hyperlipidemia GERD (gastroesophageal reflux disease) Dyspnea on exertion Chest pain Hypersomnia Cardiac murmur Microcytic anemia Hypertension Morbid obesity with BMI of 40.0-44.9, adult Asthma Hypothyroidism Anxiety Home Medications ?Medication ?Instructions ?Recorded ?Last Taken ?Type insulin lispro 100 unit/mL 1 sliding scale dose subcut ACHS 06/27/24 06/27/24 History subcutaneous pen (Humalog KwikPen diabetes (U-100) Insulin) rimegepant 75 mg disintegrating 75 mg PO DAILY PRN jeny víctor 06/27/24 Unknown History tablet (Nurtec ODT) citalopram 20 mg tablet 40 mg (2 x 20 mg) PO DAILY 0 08/08/24 06/27/24 Rx depression #1 TAB budesonide-formoterol HFA 160 2 puff inhalation BID Unknown History mcg-4.5 mcg/actuation aerosol inhaler (Symbicort) cyclobenzaprine 5 mg tablet 5 mg PO QPM 09/02/24 Unkno wn History diclofenac sodium 3 % topical gel 1 ea topical BID PRN PRN pain 09/02/24 Unknown History (scale score 1-3) fluticasone propionate 50 2 spray intranasal BID aller gies 09/02/24 Unknown History mcg/actuation nasal spray,suspension gabapentin 300 mg capsule 300 mg PO TID 09/02/24 Unkno wn History galcanezumab-gnlm 120 mg/mL 120 mg subcut QMONTH 09/02 Unknown History subcutaneous pen injector (Emgality Pen) ganciclovir 0.15 % eye gel (Zirgan) 1 drp RIGHT EYE 4X /DAY 09/02/24 Unknown History lorazepam 0.5 mg tablet 0.5 mg PO TID PRN anxiety Unknown History moxifloxacin 0.5 % eye drops 1 drp RIGHT EYE Q2H 09/02 Unknown History apixaban 5 mg (74 tabs) tablets in 5 mg PO BID #180 ta bs 09/24/24 Unknown Rx a dose pack (Crowd Analyzer DVT-PE Treat 30D Start) atorvastatin 40 mg tablet 40 mg PO QHS cholestrol #90 tabs 09/24/24 Unknown Rx ezetimibe 10 mg tablet 10 mg PO DAILY #90 tabs 08/29 10/22 Unknown Rx furosemide 40 mg tablet 40 mg PO DAILY #90 tabs 08/29 10/22 Unknown Rx isosorbide mononitrate 30 mg 30 mg PO DAILY #90 tabs 0 09/24/24 Unknown Rx tablet,extended release 24 hr levothyroxine 150 mcg tablet 150 mcg PO QDAY 09/24/24 Unknown History (Levo-T) losartan 100 mg tablet 100 mg PO QDAY blood pressur e #90 09/24/24 Unknown Rx tabs dicyclomine 20 mg tablet 20 mg PO Q6H PRN PRN abdomin al 09/25/24 Unknown Rx discomfort #12 tabs Allergy/AdvReac Type Severity Reaction Status Date / Time hydrochlorothiazide AdvReac Intermediate Contributes Verified 09/25/24 04:19 to gout naproxen (From Naprosyn) AdvReac Intermediate Nausea Verified 09/25/24 04:19 aspirin AdvReac Nausea Verified 09/25/24 04:19 Penicillins AdvReac Other Verified 09/25/24 04:19 Family History Father , Age 72 Hypertension Mother CAD (coronary artery disease) Myocardial infarction, Onset Age: 55 Hypertension Sister CAD (coronary artery disease) Brother Cancer Surgical History History of cardiac catheterization History of History of carpal tunnel surgery of right wrist History of carpal tunnel surgery of left wrist Hx of cystoscopy History of left heart catheterization (11/11/20) history of uterine ablation Social History household members: spouse housing: apartment Smoking Status: Never smoker alcohol intake: never substance use type: does not use caffeine: No ROS ROS ED Constitutional Constitutional ED: Denies chills or fever(s) Eyes Eyes: Denies change in vision or diplopia ENT ENT ED: Denies rhinorrhea or sore throat Cardiovascular Cardiovascular: Denies chest pain or palpitations Respiratory/Chest Respiratory/Chest: Denies cough or dyspnea Gastrointestinal Gastrointestinal: Reports abdominal pain, diarrhea, nausea and vomiting; Denies melena Genitourinary Genitourinary ED: Denies dysuria or hematuria Musculoskeletal Musculoskeletal: Denies back pain or neck pain Integumentary Denies abscess or rash Neurologic Neurologic: Denies headache(s), paresthesias or weakness Psychiatric Psychiatric: Denies suicidal thoughts EXAM Physical Exam Const Vital Signs: 09/25/24 04:19 09/25/24 06:18 Temperature 97.5 F L Temperature Source Oral Pulse Rate 96 83 Respiratory Rate 18 18 Blood Pressure 131/82 H 145/95 H Blood Pressure Mean 98 111 Pulse Ox 94 93 Oxygen Delivery Method Room Air Room Air Positive well nourished, well developed and obese Constitutional Narrative: Morbid abdominal obesity limits the exam. NAD. General Appearance ED: well developed and NAD Nutritional Appearance: obese HEENT Reports moist mucous membranes normocephalic and atraumatic Eyes PERRL and EOMs intact bilaterally Eyes Narrative: floppy upper eyelid jayro on right Neck full ROM and supple Resp normal respiratory effort and clear to auscultation bilaterally Cardio regular rate, regular rhythm and no murmurs Rate: Negative for tachycardic GI non-distended GI Narrative: Very tender in the left upper quadrant. Mild in the right upper quadrant and epigastrium, no lower abdominal tenderness. Auscultation: normoactive bowel sounds Palpation: soft Back/Spine General Back: other FROM Extremity normal to inspection General Extremety ED: Negative for edema, pulses abnormal or tenderness General Extremity: Negative for edema or pulses abnormal Neuro oriented x3, CN's II-XII intact bilaterally and no sensory deficits noted Sensorium / Orientation: awake and alert Motor Exam: strength 5/5 throughout Psych Mood & Affect: anxious Skin no rashes or lesions noted and no wounds MDM MDM MDM Narrative Medical decision making narrative: Patient with acute diarrhea left upper quadrant pain, and 1 bout of nausea/vomiting. She states that when she drank fluids it would make her abdomen hurt worse. She has not been eating much in the last couple days because of the symptoms. No blood, no fevers. Labs obtained, liver enzymes are normal except for slightly elevated alkaline phosphatase which is typical for her, normal lipase, she has a bit of a leukocytosis which is also typical for her most visits here. She has been here for this before. She has had 2 abdominal/pelvic CTs in the last several months that have both been negative wi th regards to anything acute. I discussed all this with her, she confirms that she has been having symptoms like this off-and-on for over a year. She saw her doctor for it and was given a prescription but it did not really help and she has another appointment in 3 days to see her doctor. She has never been referred to GI. I suspect this is intraluminal disease or possibly colitis. We gave her morphine, Levsin, Reglan. She had some improvement. Was then given Toradol. For the reasons above I do not think she needs to have emergent repeat imaging of her abdomen/pelvis at this time although we considered it. She was also seen here a week ago and had x-rays that showed a large stool burden. She had little improvement after the Toradol. She states now that she has been having diarrhea because she has been taking a lot of laxatives because she was constipated at the beginning the laxatives and having diarrhea, she is having severe pain and this is the worst it has ever been and she is asking for a CT. I am doing this without contrast because of her diabetes, and the relatively low yield of the CT in this context. I reviewed the CT images. On my interpretation it shows ascites/free fluid. Looking back at some of her old imaging, her CT abdomen/pelvis in May did not show this, but she had a CT of the chest while she was admitted to the hospital in July for myxedema and it showed this free fluid. The patient confirms that she does not have abdominal pain all the times and she has been home from the hospital in July. She does not have rebound tenderness and her pain is fairly localized so I do not think it is necessarily due to this free fluid and I do not think she has spontaneous bacterial peritonitis right now; she states eating and drinking has been making this pain worse. She does not have a history of cirrhosis or liver problems that she knows of; the CT suggests some fatty liver disease. Her leg edema has been improving since she was put on thyroid medication, and it is possible that this free fluid is also related to her hypothyroidism as it can cause pericardial fluid collections, but overall unknown if related. At this time she is not bradycardic or hypotensive or difficult to arouse, so I do not suspect that she has decompensated hypothyroidism at this time. If at some point she is to have an outpatient paracentesis, she would have to stop her anticoagulant anyway. She may need some further testing to determine the cause of her ascites but I believe this can be obtained as an outpatient. She is actually feeling better as long as she remains still. Going to prescribe her dicyclomine and have her be discharged and follow-up as scheduled and she is comfortable with that plan. History & Record Review Additional record(s) reviewed:: Prior ED visit and Prior labs (and imaging - see MDM) Lab Data Attestation: I reviewed the patient's lab results. Labs: Laboratory Results - last 24 hr 09/25/24 05:07 WBC 14.5 H RBC 3.79 L Hgb 11.4 L Hct 35.4 L MCV 93.4 MCH 30.1 MCHC 32.2 RDW Std Deviation 61.1 H RDW Coeff of Alfredo 17.6 H Plt Count 525 H MPV 9.8 Immature Gran % (Auto) 0.600 Neut % (Auto) 74.8 H Lymph % (Auto) 15.2 L [place] % (Auto) 7.8 Eos % (Auto) 1.0 Baso % (Auto) 0.6 Absolute Neuts (auto) 10.9 H Absolute Lymphs (auto) 2.21 Nucleated RBC % 0 Sodium 138 Potassium 3.1 L Chloride 101 Carbon Dioxide 22.6 Anion Gap 14 BUN 15 Creatinine 1.13 Estim Creat Clear Calc 78.15 Est GFR (MDRD) Non-Af 58 L BUN/Creatinine Ratio 13.0 Glucose 114 H Calcium 8.8 Total Bilirubin 0.19 AST 28 ALT 11 Alkaline Phosphatase 133 H Total Protein 5.8 L Albumin 2.8 L Globulin 3.0 Albumin/Globulin Ratio 0.9 Lipase 44 Radiography Diagnostic Testing: Clinical Impression(s) from Imaging Studies Abdomen/Pelvis CT 09/25/24 06:11 IMPRESSION: The liver shows low-density consistent with fatty infiltration or liver disease, Hounsfield units 38. There is a 3 cm ill-defined low-density focus at the gallbladder fossa which may represent focal fatty infiltration, image 60/215. CT with multiphasic contrast, or MR correlation could be helpful for further characterization. There is free fluid throughout the abdomen measuring 1.4 cm at the right hepatic lobe, 3.3 cm at the left hepatic lobe, 3.0 cm at the margin of the spleen , 7 cm in the right pericolic gutter, and 6 cm in the left pericolic gutter, and 8 cm in the mid pelvis. Reading [facility] Triage Chief Complaint: Abd Pain ED Provider: Ricardo Driver Dx/Rx/DC Orders Clinical Impression: Abdominal pain, left upper quadrant, Intra-abdominal fluid, Anticoagulated on apixaban Instructions: Abdominal Pain, ED Ascites Prescriptions: New dicyclomine 20 mg tablet 20 mg PO Q6H PRN PRN (Reason: abdominal discomfort) Qty: 12 0RF No Action Nurtec ODT 75 mg tablet,disintegrating 75 mg PO DAILY PRN (Reason: migraine) insulin lispro [Humalog KwikPen Insulin] 100 unit/mL Insulin Pen 1 sliding scale dose subcut ACHS Protocol: 2. Sliding Scale Insulin Low-Med Dosing Condition: 150-209 mg/dl = 1 unit Condition: 210-269 mg/dl = 2 units Condition: 270-329 mg/dl = 3 units Condition: 330-389 mg/dl = 4 units Condition: 390-449 mg/dl = 5 units Condition: Greater than 449 call physician Protocol Text: Suggested for: - Patients on Total Daily Insulin Dose of 28-36 units - Average body habitus patients LOW MEDIUM DOSING ALGORITHM citalopram 20 mg Tablet 40 mg PO DAILY Qty: 1 0RF diclofenac sodium 3 % gel 1 ea topical BID PRN PRN (Reason: pain (scale score 1-3)) cyclobenzaprine 5 mg tablet 5 mg PO QPM budesonide-formoterol [Symbicort] 160-4.5 mcg/actuation HFA aerosol inhaler 2 puff INHALATION BID lorazepam 0.5 mg tablet 0.5 mg PO TID PRN gabapentin 300 mg capsule 300 mg PO TID fluticasone propionate 50 mcg/actuation spray,suspension 2 spray INTRANASAL BID Zirgan 0.15 % gel 1 drp RIGHT EYE 4X/DAY Emgality Pen 120 mg/mL pen injector 120 mg SUBCUT QMONTH Patient Comments: INHALE 120 SUBCUTANEOUSLY (UNDER THE SKIN) 1 time a day EVERY 30 days FOR MIGRAINE moxifloxacin 0.5 % drops 1 drp RIGHT EYE Q2H atorvastatin 40 mg tablet 40 mg PO QHS Qty: 90 3RF ezetimibe 10 mg tablet 10 mg PO DAILY Qty: 90 3RF furosemide 40 mg tablet 40 mg PO DAILY Qty: 90 3RF isosorbide mononitrate 30 mg tablet extended release 24 hr 30 mg PO DAILY Qty: 90 3RF Eliquis DVT-PE Treat 30D Start 5 mg (74 tabs) tablets,dose pack 5 mg PO BID Qty: 180 3RF losartan 100 mg tablet 100 mg PO QDAY Qty: 90 3RF levothyroxine [Levo-T] 150 mcg tablet 150 mcg PO QDAY Primary Care Provider: Nasreen Sutton Referrals: Nasreen Sutton MD [Primary Care Provider] - [facility] appointment Print Language: Nigerian Disposition Disposition: Home, Self Care
[2024-09-25] MEDS: 0.9% Normal Saline (500mL Bag) 500 ML 999 ML IV (05:04)
[2024-09-25 05:21] LABS: Hematocrit 35.4 % (37-47); Hemoglobin 11.4 g/dL (12.0-15.0); Immature Granulocytes Count 0.080 X10^3/uL (0.0-0.0); Mean Corp Hgb Conc 32.2 g/dL (32-36); Mean Corpuscular Volume 93.4 fL (81-99); Mean Platelet Vol. 9.8 fl (6.2-12.0); NRBC Flagged by Analyzer 0 % (0-5); Platelet Count 525 K/mm3 (150-450); RBC Distribution Width CV 17.6 % (11.6-14.6); RBC Distribution Width SD 61.1 fl (35.1-43.9); Red Blood Count 3.79 M/mm3 (4.2-5.4); White Blood Count 14.5 K/mm3 (4.4-11.0)
[2024-09-25 05:35] LABS: AST(SGOT) 28 U/L (<=31); Alanine Aminotransfer ALT/SGPT 11 U/L (<=34); Albumin, Serum 2.8 g/dL (3.5-5.0); Alkaline Phosphatase 133 U/L (35-104); Anion Gap 14 (5-15); BUN 15 mg/dL (4-19); BUN/Creat Ratio 13.0 RATIO (10-20); Calcium,Total 8.8 mg/dL (7.6-11.0); Carbon Dioxide 22.6 mmol/L (21.0-32.0); Chloride 101 mmol/L (98-108); Estimated Creatinine Clearance 78.15 ml/min (50-250); Globulin 3.0 g/dL (2.2-4.2); Glucose 114 mg/dL (70-99); Lipase 44 U/L (13-75); Potassium 3.1 mmol/L (3.3-5.1)
--- NOTE | 2024-09-25 06:11 | CT_ITS ---
PROCEDURE: ABDOMEN/PELVIS WITHOUT CONT 09/25/2024 REASON FOR EXAM: LUQ PAIN TECHNIQUE: ABDOMEN/PELVIS WITHOUT CONT Noncontrast technique limits evaluation of the abdominal and pelvic viscera. Coronal and Sagittal reconstruction series were provided. One or more dose reduction techniques were used (e.g., Automated exposure control, adjustment of the mA and/or kV according to patient size, use of iterative reconstruction technique). RADIATION DOSE SUMMARY: DLP: 1413 mGycm COMPARISON: June 05, 2024 FINDINGS: Lung bases: Clear Liver: The liver shows low-density consistent with fatty infiltration or liver disease, Hounsfield units 38. There is a 3 cm ill-defined low-density focus at the gallbladder fossa which may represent focal fatty infiltration, image 60/215. Gallbladder: There is no visible gallstone Spleen: The spleen measures 11 cm in length. Pancreas: There is no visible pancreatic lesion. Adrenals: Unremarkable Kidneys: Unremarkable Bladder: Unremarkable Reproductive Organs: Unremarkable Bowel: There is a small amount of gas and stool noted in the colon. The small bowel loops are not distended. Appendix: Unremarkable Lymph nodes: There is no pathologic adenopathy by size criteria. Vasculature: Atherosclerotic calcifications are noted. Peritoneum / Retroperitoneum: There is free fluid throughout the abdomen measuring 1.4 cm at the right hepatic lobe, 3.3 cm at the left hepatic lobe, 3.0 cm at the margin of the spleen , 7 cm in the right pericolic gutter, and 6 cm in the left pericolic gutter, and 8 cm in the mid pelvis. There is no visible free air. Bones: There is no acute bony abnormality. CT/Abdomen/Pelvis without Cont IMPRESSION: The liver shows low-density consistent with fatty infiltration or liver disease , Hounsfield units 38. There is a 3 cm ill-defined low-density focus at the gallbladder fossa which ma y represent focal fatty infiltration, image 60/215. CT with multiphasic contrast, or MR correlation could be helpful for fu rther characterization. There is free fluid throughout the abdomen measuring 1.4 cm at the right hepati c lobe, 3.3 cm at the left hepatic lobe, 3.0 cm at the margin of the spleen , 7 cm in the right pericolic gutter, and 6 cm in the left pericolic gutter, and 8 cm in the mid pelvis. Reading [facility]
[2024-09-25 06:18] VITALS: BP 145/95; PULSE 83; RESP 18; O2SAT 93
[2024-09-25 07:24] VITALS: BP 145/95; PULSE 82; RESP 16; TEMP 36.7; O2SAT 94
== END 2024-09-25 07:33 | disposition home or self-care (01) ==
PROVIDERS: Emergency Provider Emergency Medicine; PCP Family Medicine; Visit Provider Emergency Medicine
DX: R10.12 Left upper quadrant pain (principal); J44.9 Chronic obstructive pulmonary disease, unspecified; E11.22 Type 2 diabetes mellitus with diabetic chronic kidney disease; Z79.4 Long term (current) use of insulin; R18.8 Other ascites; E03.9 Hypothyroidism, unspecified; I12.9 Hypertensive chronic kidney disease with stage 1 through stage 4 chronic kidney disease, or unspecified chronic kidney disease; Z86.718 Personal history of other venous thrombosis and embolism; N18.9 Chronic kidney disease, unspecified; Z86.711 Personal history of pulmonary embolism; E78.00 Pure hypercholesterolemia, unspecified; Z79.01 Long term (current) use of anticoagulants; Z86.73 Personal history of transient ischemic attack (TIA), and cerebral infarction without residual deficits; G47.33 Obstructive sleep apnea (adult) (pediatric); Z99.81 Dependence on supplemental oxygen; F32.A Depression, unspecified; Z79.899 Other long term (current) drug therapy; Z79.51 Long term (current) use of inhaled steroids; Z79.890 Hormone replacement therapy
CPT/HCPCS: 74176; 80053; 83690; 85025; 96361; 96374; 96375; 99284; A4216

== ENCOUNTER 2024-09-27 15:55 | Inpatient (IN) | payer MEDICARE, MEDICAID, SELFPAY ==
[2024-09-27 15:56] VITALS: BP 149/82; PULSE 100; RESP 18; TEMP 36.8; O2SAT 97
[2024-09-27 15:57] VITALS: BP 130/85; PULSE 94; RESP 18; TEMP 36.9; O2SAT 98; BMI 50.1
--- NOTE | 2024-09-27 16:40 | EKG12_ITS ---
Test Reason : GENERAL Blood Pressure : */* mmHG Vent. Rate : 91 BPM Atrial Rate : 91 BPM P-R Int : 140 ms QRS Dur : 86 ms QT Int : 324 ms P-R-T Axes : 41 -15 156 degrees QTcB Int : 398 ms Normal sinus rhythm ST & T wave abnormality, consider lateral ischemia Abnormal ECG Confirmed by MIGUEL GONZALEZ, MAGALI ([id number]), medical editor SONJA ZABALA ([id number]) on 10/01/2024 8:23:01 AM Referred By: Confirmed By: MAGALI RIVERA MD
--- NOTE | 2024-09-27 16:42 | ED.VIS.GI ---
HPI HPI - GI History of Present Illness Chief Complaint: Abd Pain Narrative Narrative: 54-year-old female, multiple medical problems, frequent visits to the emergency department presents with abdominal pain and ascites as well as swelling of her right arm that she has had for the last few days. She and her mother relate history that she was seen in the emergency department a few days ago. She was diagnosed with ascites. She was trying to follow-up with her primary care provider but they had no openings today so they went to urgent care who promptly sent them back to the emergency department for continued abdominal pain and swelling as well as right arm pain and swelling. Patient denies any chest pain, no nausea or vomiting. She is having problems managing at home according to her mother/relative. [facility] Medical History Toxic metabolic encephalopathy MARYANA (acute kidney injury) Noncompliance with medication regimen Acute hypoxic on chronic hypercapnic respiratory failure Myxedema coma Elevated serum creatinine Sinus bradycardia on ECG Kidney failure MARYANA (acute kidney injury) Fatigue MARYANA (acute kidney injury) Walker as ambulation aid Ambulates with cane Low iron History of renal disease High cholesterol DVT (deep venous thrombosis) PONV (postoperative nausea and vomiting) Stroke/cerebrovascular accident Sleep apnea [facility] follow-up encounter Scalp hematoma Pulmonary embolism Post-menopausal Thyroid disease Injury of head and neck Dietary restriction Difficulty swallowing BiPAP (biphasic positive airway pressure) dependence COPD (chronic obstructive pulmonary disease) Shortness of breath on exertion Leg cramps History of pain when walking History of edema History of echocardiogram History of stress test Syncope Abnormal glucose Noncompliance DAVY treated with BiPAP UTI (urinary tract infection) Vitamin D deficiency Restless leg syndrome Vitamin B12 deficiency Iron deficiency anemia History of chronic back pain Wears glasses Arthritis Non-smoker Hydronephrosis Depression Anemia Migraine headache Chronic kidney disease Diabetes mellitus Gout Celiac disease Hyperlipidemia GERD (gastroesophageal reflux disease) Dyspnea on exertion Chest pain Hypersomnia Cardiac murmur Microcytic anemia Hypertension Morbid obesity with BMI of 40.0-44.9, adult Asthma Hypothyroidism Anxiety Home Medications ?Medication ?Instructions ?Recorded ?Last Taken ?Type insulin lispro 100 unit/mL 1 sliding scale dose subcut ACHS 06/27/24 06/27/24 History subcutaneous pen (Humalog KwikPen diabetes (U-100) Insulin) rimegepant 75 mg disintegrating 75 mg PO DAILY PRN migraine 06/27/24 Unknown History tablet (Nurtec ODT) citalopram 20 mg tablet 40 mg (2 x 20 mg) PO DAILY 08/08/24 06/27/24 Rx depression #1 TAB budesonide-formoterol HFA 160 2 puff inhalation BID 09/02/24 Unknown History mcg-4.5 mcg/actuation aerosol inhaler (Symbicort) cyclobenzaprine 5 mg tablet 5 mg PO QPM 09/02/24 Unknown History diclofenac sodium 3 % topical gel 1 ea topical BID PRN PRN pain 09/02/24 Unknown History (scale score 1-3) fluticasone propionate 50 2 spray intranasal BID allergies 09/02/24 Unknown History mcg/actuation nasal spray,suspension gabapentin 300 mg capsule 300 mg PO TID 09/02/24 Unknown History galcanezumab-gnlm 120 mg/mL 120 mg subcut QMONTH 09/02/24 Unknown History subcutaneous pen injector (Emgality Pen) ganciclovir 0.15 % eye gel (Zirgan) 1 drp RIGHT EYE 4X/DAY 09/02/24 Unknown History lorazepam 0.5 mg tablet 0.5 mg PO TID PRN anxiety 09/02/24 Unknown History moxifloxacin 0.5 % eye drops 1 drp RIGHT EYE Q2H 09/02/24 Unknown History apixaban 5 mg (74 tabs) tablets in 5 mg PO BID #180 tabs 09/24/24 Unknown Rx a dose pack (Bizak DVT-PE Treat 30D Start) atorvastatin 40 mg tablet 40 mg PO QHS cholestrol #90 tabs 09/24/24 Unknown Rx isosorbide mononitrate 30 mg 30 mg PO DAILY #90 tabs 09/24/24 Unknown Rx tablet,extended release 24 hr dicyclomine 20 mg tablet 20 mg PO Q6H PRN PRN abdominal 09/25/24 Unknown Rx discomfort #12 tabs levothyroxine 200 mcg capsule 200 mcg PO QDAY 09/25/24 Unknown History levothyroxine 25 mcg capsule 25 mcg PO QDAY 09/25/24 Unknown History Allergy/AdvReac Type Severity Reaction Status Date / Time hydrochlorothiazide AdvReac Intermediate Contributes Verified 09/27/24 15:57 to gout naproxen (From Naprosyn) AdvReac Intermediate Nausea Verified 09/27/24 15:57 aspirin AdvReac Nausea Verified 09/27/24 15:57 Penicillins AdvReac Other Verified 09/27/24 15:57 Family History Father , Age 72 Hypertension Mother CAD (coronary artery disease) Myocardial infarction, Onset Age: 55 Hypertension Sister CAD (coronary artery disease) Brother Cancer Surgical History History of cardiac catheterization History of History of carpal tunnel surgery of right wrist History of carpal tunnel surgery of left wrist Hx of cystoscopy History of left heart catheterization (11/11/20) history of uterine ablation Social History household members: spouse housing: apartment Smoking Status: Never smoker alcohol intake: never substance use type: does not use caffeine: No ROS ROS ED ROS Narrative Review of systems positive for diffuse abdominal pain and abdominal distention. No fevers or chills, no nausea or vomiting. Positive right arm swelling. EXAM Physical Exam Narrative Exam Narrative: Afebrile. Vital signs noted. Nontoxic-appearing. Cardiovascular examination reveals regular rate and rhythm with borderline tachycardia. Lungs clear to auscultation bilaterally. Abdomen obese, mildly distended. With minimal diffuse tenderness to palpation. Positive bowel sounds. Positive edema of right upper extremity. Neurological examination nonfocal, nonlateralizing. Const Vital Signs: 09/27/24 15:56 09/27/24 15:57 09/27/24 17:55 Temperature 98.2 F 98.4 F Temperature Source Oral Oral Pulse Rate 100 94 98 Respiratory Rate 18 18 18 Blood Pressure 149/82 H 130/85 H 144/84 H Blood Pressure Mean 104 100 104 Pulse Ox 97 98 93 Oxygen Delivery Method Room Air Room Air Room Air MDM MDM MDM Narrative Medical decision making narrative: The differential diagnosis includes but not limited to ascites/anasarca versus bowel obstruction versus congestive heart failure. I reviewed the patient's prior ED visits. She has been here for eye problems as well and needed more for transfer because of failure to follow-up. She had a CT of the abdomen and pelvis 2 days ago which did show ascites. She had intra-abdominal free fluid that was supposed to be worked up as an outpatient. No feel she requires a repeat CT as she just had it 2 days ago. Regarding her right arm edema, could be more anasarca with skin changes. I do not suspect an upper extremity blood clot as she is on apixaban according to her medication list. EKG was obtained and interpreted by myself independently as normal sinus rhythm at 91 bpm without ectopy or acute ST changes. No STEMI. In review of her laboratory work today, her white count has increased slightly to 16.3 from 14, hemoglobin stable at 11.5, hematocrit 35.2, platelet count elevated at 551. Recently she has had chronic thrombophilia when compared to prior labs. CMP is remarkable for glucose of 125 with BUN of 16 and creatinine slightly elevated at 1.26. Sodium normal at 136 and potassium normal at 4.4, carbon dioxide slightly low at 20.0 which may be from hyperventilation. AST slightly elevated at 34 which I think is nonspecific. Lipase normal at 30 so I doubt pancreatitis. BNP normal at 108 so I doubt congestive heart failure as a cause of her swelling. Based on her physical examination, I do not feel that she has peritonitis. Once again I had reviewed her CT of the abdomen and pelvis which showed intra-abdominal fluid that was nonspecific. She will be given dicyclomine for pain. Her UA is pending but given her ascites and intractable abdominal pain and right upper extremity edema, I will discuss the patient with the hospitalist for at least observation. Patient is in stable condition. I discussed patient with Dr. Jeronimo who will sign the patient to observation on the general medical floor. Her macro analysis came back for her urine with positive nitrites. He stated that in review of her prior urine cultures, she grew out Pseudomonas. He would like her to have 3.35 g of piperacillin tazobactam/Zosyn intravenously. I reviewed her prior medication list and she had received this in the past although she has an allergy to penicillin, most recently as April of this year. Disposition is assigned observation. Patient is in stable condition. History & Record Review Discussion w/independent historian: Patient and Family Additional record(s) reviewed:: Prior ED visit (CT 2 days ago with ascites and intra-abdominal fluid.) and Prior labs (Previous thrombophilia.) Lab Data Attestation: I reviewed the patient's lab results. Labs: Laboratory Results - last 24 hr 09/27/24 09/27/24 09/27/24 16:40 16:46 17:04 WBC 16.3 H RBC 3.85 L Hgb 11.5 L Hct 35.2 L MCV 91.4 MCH 29.9 MCHC 32.7 RDW Std Deviation 58.7 H RDW Coeff of Alfredo 17.6 H Plt Count 551 H MPV 10.0 Immature Gran % (Auto) 0.700 Neut % (Auto) 80.8 H Lymph % (Auto) 11.4 L [place] % (Auto) 5.6 Eos % (Auto) 0.9 Baso % (Auto) 0.6 Absolute Neuts (auto) 13.2 H Absolute Lymphs (auto) 1.86 Nucleated RBC % 0 Sodium 136 Potassium 4.4 Chloride 100 Carbon Dioxide 20.0 L Anion Gap 16 H BUN 16 Creatinine 1.26 H Estim Creat Clear Calc 69.18 Est GFR (MDRD) Non-Af 51 L BUN/Creatinine Ratio 12.8 Glucose 125 H Calcium 8.8 Total Bilirubin 0.32 AST 34 H ALT 10 Alkaline Phosphatase 159 H NT pro BNP II 108 Total Protein 6.3 Albumin 3.1 L Globulin 3.3 Albumin/Globulin Ratio 0.9 Lipase 30 Urine Color Yellow Urine Clarity Cloudy Urine pH 5.0 Ur Specific [place] 1.020 Urine Protein 30 H Urine Glucose (UA) Normal Urine Ketones Negative Urine Occult Blood 50 H Urine Nitrite Positive H Urine Bilirubin Negative Urine Urobilinogen Normal Ur Leukocyte Esterase 500 H Management Discussion w/another healthcare provider: Hospitalist (Dr. Jeronimo) Discharge Plan Triage Chief Complaint: Abd Pain Other Complaint: Cellulitis ED Provider: [place] Dx/Rx/DC Orders Clinical Impression: Thrombocytosis, Ascites, Abdominal pain, Pain and swelling of right upper extremity Prescriptions: No Action Nurtec ODT 75 mg tablet,disintegrating 75 mg PO DAILY PRN (Reason: migraine) insulin lispro [Humalog KwikPen Insulin] 100 unit/mL Insulin Pen 1 sliding scale dose subcut [facility] Protocol: 2. Sliding Scale Insulin Low-Med Dosing Condition: 150-209 mg/dl = 1 unit Condition: 210-269 mg/dl = 2 units Condition: 270-329 mg/dl = 3 units Condition: 330-389 mg/dl = 4 units Condition: 390-449 mg/dl = 5 units Condition: Greater than 449 call physician Protocol Text: Suggested for: - Patients on Total Daily Insulin Dose of 28-36 units - Average body habitus patients LOW MEDIUM DOSING ALGORITHM citalopram 20 mg Tablet 40 mg PO DAILY Qty: 1 0RF diclofenac sodium 3 % gel 1 ea topical BID PRN PRN (Reason: pain (scale score 1-3)) cyclobenzaprine 5 mg tablet 5 mg PO QPM budesonide-formoterol [Symbicort] 160-4.5 mcg/actuation HFA aerosol inhaler 2 puff INHALATION BID lorazepam 0.5 mg tablet 0.5 mg PO TID PRN gabapentin 300 mg capsule 300 mg PO TID fluticasone propionate 50 mcg/actuation spray,suspension 2 spray INTRANASAL BID Zirgan 0.15 % gel 1 drp RIGHT EYE 4X/DAY Emgality Pen 120 mg/mL pen injector 120 mg SUBCUT QMONTH Patient Comments: INHALE 120 SUBCUTANEOUSLY (UNDER THE SKIN) 1 time a day EVERY 30 days FOR MIGRAINE moxifloxacin 0.5 % drops 1 drp RIGHT EYE Q2H dicyclomine 20 mg tablet 20 mg PO Q6H PRN PRN (Reason: abdominal discomfort) Qty: 12 0RF atorvastatin 40 mg tablet 40 mg PO QHS Qty: 90 3RF isosorbide mononitrate 30 mg tablet extended release 24 hr 30 mg PO DAILY Qty: 90 3RF Eliquis DVT-PE Treat 30D Start 5 mg (74 tabs) tablets,dose pack 5 mg PO BID Qty: 180 3RF levothyroxine 25 mcg capsule 25 mcg PO QDAY Rx Instructions: take 25mcg daily, in addition to 200mcg levothyroxine 200 mcg capsule 200 mcg PO QDAY Rx Instructions: take 200mcg daily, in addition to 25mcg Primary Care Provider: Nasreen Sutton Referrals: Nasreen Sutton MD [Primary Care Provider] - Print Language: Portuguese
[2024-09-27 17:08] LABS: Hematocrit 35.2 % (37-47); Hemoglobin 11.5 g/dL (12.0-15.0); Immature Granulocytes Count 0.120 X10^3/uL (0.0-0.0); Mean Corp Hgb Conc 32.7 g/dL (32-36); Mean Corpuscular Volume 91.4 fL (81-99); Mean Platelet Vol. 10.0 fl (6.2-12.0); NRBC Flagged by Analyzer 0 % (0-5); Platelet Count 551 K/mm3 (150-450); RBC Distribution Width CV 17.6 % (11.6-14.6); RBC Distribution Width SD 58.7 fl (35.1-43.9); Red Blood Count 3.85 M/mm3 (4.2-5.4); White Blood Count 16.3 K/mm3 (4.4-11.0)
[2024-09-27 17:08] LABS: Mucous, Urine 0 SEEN /hpf (<or=2+)
[2024-09-27 17:34] LABS: AST(SGOT) 34 U/L (<=31); Alanine Aminotransfer ALT/SGPT 10 U/L (<=34); Albumin, Serum 3.1 g/dL (3.5-5.0); Alkaline Phosphatase 159 U/L (35-104); Anion Gap 16 (5-15); BUN 16 mg/dL (4-19); BUN/Creat Ratio 12.8 RATIO (10-20); Calcium,Total 8.8 mg/dL (7.6-11.0); Carbon Dioxide 20.0 mmol/L (21.0-32.0); Chloride 100 mmol/L (98-108); Estimated Creatinine Clearance 69.18 ml/min (50-250); Globulin 3.3 g/dL (2.2-4.2); Glucose 125 mg/dL (70-99); Lipase 30 U/L (13-75); Potassium 4.4 mmol/L (3.3-5.1); Pro- Brain NATRIURETIC PEPTIDE 108 pg/mL (<=900)
[2024-09-27 17:52] LABS: Color, Urine Yellow (Yellow); Glucose, Dipstick Normal (Normal); Ketone-Dipstick Negative (Negative); Leukocyte Esterase-Dipstick 500 /ul (Negative); Nitrite-Dipstick Positive (Negative); Occult Blood-Urine 50 /ul (Negative); Protein-Dipstick 30 mg/dl (Negative); Specific Gravity, Urine 1.020 (1.002-1.030); Urine Bilirubin Dipstick Negative (Negative)
[2024-09-27 17:55] VITALS: BP 144/84; PULSE 98; RESP 18; O2SAT 93
--- NOTE | 2024-09-27 18:08 | PCM.HP.STD ---
HPI - General General Date of Admission: 09/27/24 Date of Service: 09/27/24 Chief Complaint: Persistent abdominal pain with distention and right arm swelling HPI Narrative COURTNEY CARMEN, is a 54 F who presented to [facility] ED on 09/27/2024 with persistent abdominal pain with distention and right arm swelling. Patient was recently hospitalized here from 08/04-08/08 for myxedema coma due to nonadherence to home Synthroid. Medical history is significant for class III obesity, type 2 diabetes mellitus with diabetic neuropathy and gastroparesis, depression/anxiety, history of stroke, hypertension, hyperlipidemia, COPD and DAVY. Since that hospitalization in early July, patient has been seen in the ED several times for various issues. Most recently she was seen in the ED on 09/20 and 09/25 for abdominal pain. Acute abdomen series on 09/20 showed dense colonic stool consistent with constipation, no other abnormalities. CT abdomen pelvis on 09/25 showed free fluid throughout the abdomen consistent with ascites of unclear significance; also showed low-density infiltration in liver consistent with fatty liver disease. ED physician noted that CT abdomen pelvis in May did not show free fluid, but CT chest during July hospitalization for myxedema, did show free fluid so he suspected the fluid may be secondary to that myxedema episode and has not been resorbed yet. She was discharged home with plan for an outpatient paracentesis. However, she reports continued abdominal pain with distention at home and now reports new onset right arm swelling over the past few days of unclear significance. In the ED today she was normotensive, had mild sinus tachycardia but was otherwise stable on room air at rest. CBC was stable from previous. CMP with creatinine 1.26 (baseline 1.0-1.1), very mildly elevated AST and alk phos that are stable from previous as well. Given her persistent symptoms and ascites, hospitalist was contacted for admission. I saw the patient at bedside in the ED. Patient was mildly fatigued appearing and was laying on her side in bed due to discomfort laying on her back per her report. She noted continued diffuse abdominal pain, similar to previous days. Denied any fevers or chills. No other acute concerns currently. Will be admitted for further management. [facility] Medical History Toxic metabolic encephalopathy MARYANA (acute kidney injury) Noncompliance with medication regimen Acute hypoxic on chronic hypercapnic respiratory failure Myxedema coma Elevated serum creatinine Sinus bradycardia on ECG Kidney failure MARYANA (acute kidney injury) Fatigue MARYANA (acute kidney injury) Walker as ambulation aid Ambulates with cane Low iron History of renal disease High cholesterol DVT (deep venous thrombosis) PONV (postoperative nausea and vomiting) Stroke/cerebrovascular accident Sleep apnea Fall Cardiology follow-up encounter Scalp hematoma Pulmonary embolism Post-menopausal Thyroid disease Injury of head and neck Dietary restriction Difficulty swallowing BiPAP (biphasic positive airway pressure) dependence COPD (chronic obstructive pulmonary disease) Shortness of breath on exertion Leg cramps History of pain when walking History of edema History of echocardiogram History of stress test Syncope Abnormal glucose Noncompliance DAVY treated with BiPAP UTI (urinary tract infection) Vitamin D deficiency Restless leg syndrome Vitamin B12 deficiency Iron deficiency anemia History of chronic back pain Wears glasses Arthritis Non-smoker Hydronephrosis Depression Anemia Migraine headache Chronic kidney disease Diabetes mellitus Gout Celiac disease Hyperlipidemia GERD (gastroesophageal reflux disease) Dyspnea on exertion Chest pain Hypersomnia Cardiac murmur Microcytic anemia Hypertension Morbid obesity with BMI of 40.0-44.9, adult Asthma Hypothyroidism Anxiety Home Medications ?Medication ?Instructions ?Recorded ?Last Taken ?Type insulin lispro 100 unit/mL 1 sliding scale dose subcut ACHS 06/27/24 06/27/24 History subcutaneous pen (Humalog KwikPen diabetes (U-100) Insulin) rimegepant 75 mg disintegrating 75 mg PO DAILY PRN migraine 06/27/24 Unknown History tablet (Nurtec ODT) citalopram 20 mg tablet 40 mg (2 x 20 mg) PO DAILY 08/08/24 06/27/24 Rx depression #1 TAB budesonide-formoterol HFA 160 2 puff inhalation BID 09/02/24 Unknown History mcg-4.5 mcg/actuation aerosol inhaler (Symbicort) cyclobenzaprine 5 mg tablet 5 mg PO QPM 09/02/24 Unknown History diclofenac sodium 3 % topical gel 1 ea topical BID PRN PRN pain 09/02/24 Unknown History (scale score 1-3) fluticasone propionate 50 2 spray intranasal BID allergies 09/02/24 Unknown History mcg/actuation nasal spray,suspension gabapentin 300 mg capsule 300 mg PO TID 09/02/24 Unknown History galcanezumab-gnlm 120 mg/mL 120 mg subcut QMONTH 09/02/24 Unknown History subcutaneous pen injector (Emgality Pen) ganciclovir 0.15 % eye gel (Zirgan) 1 drp RIGHT EYE 4X/DAY 09/02/24 Unknown History lorazepam 0.5 mg tablet 0.5 mg PO TID PRN anxiety 09/02/24 Unknown History moxifloxacin 0.5 % eye drops 1 drp RIGHT EYE Q2H 09/02/24 Unknown History apixaban 5 mg (74 tabs) tablets in 5 mg PO BID #180 tabs 09/24/24 Unknown Rx a dose pack ([employer] DVT-PE Treat 30D Start) atorvastatin 40 mg tablet 40 mg PO QHS cholestrol #90 tabs 09/24/24 Unknown Rx isosorbide mononitrate 30 mg 30 mg PO DAILY #90 tabs 09/24/24 Unknown Rx tablet,extended release 24 hr dicyclomine 20 mg tablet 20 mg PO Q6H PRN PRN abdominal 09/25/24 Unknown Rx discomfort #12 tabs levothyroxine 200 mcg capsule 200 mcg PO QDAY 09/25/24 Unknown History levothyroxine 25 mcg capsule 25 mcg PO QDAY 09/25/24 Unknown History Allergy/AdvReac Type Severity Reaction Status Date / Time hydrochlorothiazide AdvReac Intermediate Contributes Verified 09/27/24 15:57 to gout naproxen (From Naprosyn) AdvReac Intermediate Nausea Verified 09/27/24 15:57 aspirin AdvReac Nausea Verified 09/27/24 15:57 Penicillins AdvReac Other Verified 09/27/24 15:57 Family History Father , Age 72 Hypertension Mother CAD (coronary artery disease) Myocardial infarction, Onset Age: 55 Hypertension Sister CAD (coronary artery disease) Brother Cancer Surgical History History of cardiac catheterization History of History of carpal tunnel surgery of right wrist History of carpal tunnel surgery of left wrist Hx of cystoscopy History of left heart catheterization (11/11/20) history of uterine ablation Social History household members: spouse housing: apartment Smoking Status: Never smoker alcohol intake: never substance use type: does not use caffeine: No ROS Constitutional Constitutional: Reports fatigue and weakness; Denies chills or fever(s) Eyes Eyes: Denies change in vision Cardiovascular Cardiovascular: Denies chest pain Respiratory/Chest Respiratory/Chest: Denies shortness of breath at rest Gastrointestinal Gastrointestinal: Reports abdominal pain, constipation and nausea; Denies diarrhea or vomiting Musculoskeletal Musculoskeletal: Denies arthralgias or myalgias Vital Signs Vital Signs Vital Signs: 09/27/24 15:56 09/27/24 15:57 09/27/24 17:55 Temperature 98.2 F 98.4 F Temperature Source Oral Oral Pulse Rate 100 94 98 Respiratory Rate 18 18 18 Blood Pressure 149/82 H 130/85 H 144/84 H Blood Pressure Mean 104 100 104 Pulse Ox 97 98 93 Oxygen Delivery Method Room Air Room Air Room Air Weight Weight: 132.6 kg Body Mass Index (BMI) 50.1 Physical Exam Const alert, oriented x3 and no apparent distress Constitutional Narrative: Middle-aged female, class III obesity, fatigued and anxious appearing, laying on her side in bed due to abdominal discomfort with laying on her back, otherwise in no acute distress. General Appearance: cooperative HEENT normocephalic, head/scalp atraumatic, hearing grossly normal bilaterally, nasal mucous membranes and turbinates normal and moist oral mucous membranes Eyes PERRL, EOMs intact bilaterally and conjunctivae normal Neck full ROM Chest inspection of chest normal Resp normal respiratory effort, normal air movement, no use of accessory muscles and clear to auscultation bilaterally Cardio regular rate, regular rhythm, no murmurs and peripheral pulses 2+ throughout GI GI Narrative: Abdomen distended but soft to palpation. Mild diffuse tenderness to palpation. Back/Spine normal ROM Extremity full ROM Extremity Narrative: Mild right lower arm swelling noted. No erythema or significant tenderness to palpation. Skin no rashes or lesions noted Neuro moves all extremities and no focal motor deficits Psych mental status grossly normal Mood & Affect: anxious Results Lab / Micro Data 09/27/24 16:46 09/27/24 16:40 Labs: Laboratory Results - last 24 hr 09/27/24 16:40: Sodium 136, Potassium 4.4, Chloride 100, Carbon Dioxide 20.0 L, Anion Gap 16 H, BUN 16, Creatinine 1.26 H, Estim Creat Clear Calc 69.18, Est GFR (MDRD) Non-Af 51 L, BUN/Creatinine Ratio 12.8, Glucose 125 H, Calcium 8.8, Total Bilirubin 0.32, AST 34 H, ALT 10, Alkaline Phosphatase 159 H, NT pro BNP II 108, Total Protein 6.3, Albumin 3.1 L, Globulin 3.3, Albumin/Globulin Ratio 0.9, Lipase 30 09/27/24 16:46: WBC 16.3 H, RBC 3.85 L, Hgb 11.5 L, Hct 35.2 L, MCV 91.4, MCH 29.9, MCHC 32.7, RDW Std Deviation 58.7 H, RDW Coeff of Alfredo 17.6 H, Plt Count 551 H, MPV 10.0, Immature Gran % (Auto) 0.700, Neut % (Auto) 80.8 H, Lymph % (Auto) 11.4 L, [place] % (Auto) 5.6, Eos % (Auto) 0.9, Baso % (Auto) 0.6, Absolute Neuts (auto) 13.2 H, Absolute Lymphs (auto) 1.86, Nucleated RBC % 0 09/27/24 17:04: Urine Color Yellow, Urine Clarity Cloudy, Urine pH 5.0, Ur Specific [place] 1.020, Urine Protein 30 H, Urine Glucose (UA) Normal, Urine Ketones Negative, Urine Occult Blood 50 H, Urine Nitrite Positive H, Urine Bilirubin Negative, Urine Urobilinogen Normal, Ur Leukocyte Esterase 500 H Assessment & Plan Assessment/Plan (1) Abdominal pain: (2) Ascites: PLAN: Plan Patient is a 54-year-old female who presented [facility] ED on 09/27/2024 with persistent abdominal pain with distention and right arm swelling. 1. Persistent abdominal pain with distention and suspected ascites ? Admit under observation status to [facility]. Recent ED visits on 09/20 and 09/25 for abdominal pain, see HPI for further details. CT abdomen pelvis showed concern for new onset ascites, though CT chest from July also appears to show abdominal fluid. Ascites seems most likely secondary to recent myxedema coma episode. However, given ongoing pain and no history of ascites, IR consulted for diagnostic and therapeutic paracentesis. Continue home Bentyl for abdominal pain. 2. Right arm swelling ? Patient reported right arm swelling in the ED. On exam, has mild right forearm swelling but this is not particularly impressive. Low concern for right arm clot as patient is on Eliquis. Patient reports worsening over the past few days and had IV in place in that arm on 09/25 so may be secondary to some degree of IV infiltration then with unclear substance. Recommend elevation of the extremity and compression as needed. Monitor. 3. Poorly controlled hypothyroidism, recent hospitalization for myxedema coma in setting of hypothyroidism with medication nonadherence ? Hospitalized from 08/04-08/08 for myxedema coma. TSH was 130 on that admit. Given several doses of IV Synthroid at that time. Repeat TSH on admit of 53.6 with free T4 0.40. Suspect due to some degree of medication nonadherence as well as poor absorption in setting of ascites as above. Will give dose of IV Synthroid 150 mcg tonight. Can consider further dose of IV Synthroid as needed in the next few days. Will continue home p.o. Synthroid as I suspect absorption will improve after paracentesis. 4. Mild acute on chronic debility ? PT/OT/case management consulted. Patient uses wheeled walker at home and has decreased mobility, but therapy scores on prior hospitalizations have been good. Appreciate therapy recommendations. 5. History of DVT/PE ? Had ED visit on 08/28 for chest pain and shortness of breath. CTA chest showed primarily chronic pulmonary emboli but radiologist was concerned for a few possible acute emboli. Patient had been on anticoagulation in the past for blood clots but not in the past few years. Eliquis was reinitiated at that time and patient has been stable on Eliquis since then. Continue home Eliquis. Chronic medical conditions: ? Class III obesity with DAVY: BMI 49 on admit. Complicates hospital course and care. Continue home PAP therapy at night. ? Type 2 diabetes mellitus with diabetic neuropathy: A1c values have consistently been in the low 6% range. Appears she is only on sliding scale insulin at home. Blood glucose in the 120s on admit. Will continue sliding scale insulin with meals while inpatient. Continue home gabapentin. ? Anxiety/depression: Continue home citalopram and lorazepam as needed. ? COPD: Stable on room air at rest, not in acute exacerbation. Continue home inhalers. ? History of stroke, hypertension, hyperlipidemia: Continue home nitrate and statin. DVT prophylaxis: Not indicated, on Eliquis CODE STATUS: DNR CCA, DNI Expected disposition: TBD Total clinical time spent by myself addressing the patient's medical issues, reviewing all the data, and collaborating with patient's care team: 75 minutes. Charges/Coding Visit Charges Inpatient E&M: 61867 Init Hosp L3
--- NOTE | 2024-09-27 18:14 | US_ITS ---
PROCEDURE: PARACENTESIS WITH US N/A REASON FOR EXAM: NEW ONSET ASCITES TECHNIQUE: PARACENTESIS WITH US COMPARISON: Abdomen and pelvis CT of 09/25/2024. FINDINGS: Procedure: Following informed consent, and using standard sterile technique, an ultrasound- guided paracentesis was performed via a right anterior oblique approach. 2% lidocaine local anesthesia was followed by placement of a 5 Afghan catheter into the ascitic fluid collection. Approximately 6970 mL of clear yellow fluid was successfully removed, with a portion sent to the laboratory for analysis. No complication was encountered, in the patient left the department in good condition without significant complaint. US/Paracentesis with US IMPRESSION: Successful diagnostic and therapeutic ultrasound-guided paracentesis. Laborato ry results pending. Reading Location: [place] [id number]
[2024-09-27] MEDS: Piperacil/Tazobactam 3.375 GM in 0.9% Normal Saline (50mL MB+) 50 ML IV ×2 (18:32→22:37)
[2024-09-27 18:58] LABS: Squamous Epithelial Cells - UA 10-25 SEEN /hpf (5-10)
[2024-09-27 18:59] LABS: Red Blood Cells-Urine 0-5 SEEN /hpf (0-5)
[2024-09-27 19:42] VITALS: BP 128/82; PULSE 96; RESP 18; TEMP 36.3; O2SAT 92
[2024-09-27 19:46] VITALS: BMI 49.6
[2024-09-27] MEDS: APIXABAN 5 MG TABLET PO (20:39)
[2024-09-27] MEDS: Fluticasone 0.05% 1 SPRAY NASAL.SRY 2 SPRAY NASAL (20:40)
[2024-09-27] MEDS: 0.9% Normal Saline (250mL Bag) 250 ML 15 ML IV (21:57)
[2024-09-27] MEDS: 0.9% Saline Lock 10 ML Syringe IV (22:01)
[2024-09-27 23:25] VITALS: PULSE 98; RESP 20
[2024-09-27] MEDS: Albuterol 2.5 MG/3 ML VIAL.NEB. INHALATION (23:27)
[2024-09-27] MEDS: Budesonide Respules 0.5 MG/2 ML AMPUL.NEB. INHALATION (23:27)
[2024-09-27] MEDS: proMETHazine 25 MG/ML Syringe IM (23:46)
[2024-09-27 23:50] VITALS: BP 121/66; PULSE 101; RESP 16; TEMP 36.6; O2SAT 92
[2024-09-27] MEDS: LEVOTHYROXINE SODIUM 100 MCG VIAL 150 MCG IV (23:51)
[2024-09-28] VITALS (14 sets, daily range): BP systolic 93–117; BP diastolic 62–80; PULSE 85–101; RESP 16–18; TEMP 36.2–36.8; O2SAT 90–99
--- NOTE | 2024-09-28 00:42 | CPS ---
Pt unable to wear bipap d/t nausea and vomiting earlier, untill her stomach pain is under control RT offers 2L nasal o2 in place of bipap tonight. RN aware.
[2024-09-28 05:31] LABS: Hematocrit 32.9 % (37-47); Hemoglobin 10.6 g/dL (12.0-15.0); Mean Corp Hgb Conc 32.2 g/dL (32-36); Mean Corpuscular Volume 94.5 fL (81-99); Mean Platelet Vol. 9.6 fl (6.2-12.0); Platelet Count 548 K/mm3 (150-450); RBC Distribution Width CV 17.7 % (11.6-14.6); RBC Distribution Width SD 61.5 fl (35.1-43.9); Red Blood Count 3.48 M/mm3 (4.2-5.4); White Blood Count 15.7 K/mm3 (4.4-11.0)
[2024-09-28] MEDS: Piperacil/Tazobactam 3.375 GM in 0.9% Normal Saline (50mL MB+) 50 ML IV (06:22)
[2024-09-28 06:37] LABS: Anion Gap 16 (5-15); BUN 14 mg/dL (4-19); BUN/Creat Ratio 11.4 RATIO (10-20); Calcium,Total 8.4 mg/dL (7.6-11.0); Carbon Dioxide 18.2 mmol/L (21.0-32.0); Chloride 102 mmol/L (98-108); Estimated Creatinine Clearance 69.48 ml/min (50-250); Glucose 120 mg/dL (70-99); Potassium 3.1 mmol/L (3.3-5.1)
[2024-09-28] MEDS: Albuterol 2.5 MG/3 ML VIAL.NEB. INHALATION ×3 (07:32→19:18)
[2024-09-28] MEDS: Budesonide Respules 0.5 MG/2 ML AMPUL.NEB. INHALATION ×2 (07:32→19:20)
[2024-09-28] MEDS: Potassium Chloride Oral Tablet 20 MEQ 60 MEQ PO (09:02)
[2024-09-28] MEDS: Fluticasone 0.05% 1 SPRAY NASAL.SRY 2 SPRAY NASAL ×2 (09:03→21:22)
[2024-09-28] MEDS: Meropenem 500 MG in 0.9% Normal Saline (50mL MB+) 50 ML 100 MG IV ×3 (09:08→21:36)
[2024-09-28 09:13] LABS: SITE Not entered; VBG BASE EXCESS 1 mmol/L (-1.0-3.5); VBG PO2 193 mmHg (25-40); VBG SO2 100 % (50-70); VBG TCO2 26 mmol/L (23-33)
[2024-09-28 09:18] LABS: Prothrombin Time (Protime)PT. 13.9 SECONDS (11.7-14.9)
[2024-09-28 09:19] LABS: Partial Thromboplast Time 29.4 Seconds (24.1-36.2)
[2024-09-28] MEDS: Lidocaine 2% (20 ml mdv) 20 ML Vial INFILT (10:32)
--- NOTE | 2024-09-28 10:33 | FLU_PTH ---
PATIENT: NELLAMay LOC: RASHID U#:[id number] AGE/SX: 54/F ROOM: [facility] [place] RE09/29/[address]: Dr. Daria Knight MD : 1970 BED: 1 DIS: 10/10/2024 SPEC #: [id number] RECD: 09/28/24 11:05 STATUS: KELLY REMichael #: [id number] IQRA: 09/28/24 10:[address]: Elda Mason DEPT: CYTOLOGY RECD BY: Logan Barrientos ENTERED: 09/28/24 12:27 SP TYPE: Fluid OTHR DR: Dr. Eddy Jeronimo, DO Nasreen Sutton MD Tissues: A - PARACENTESIS FLUID Procedures: Special Stain Group II Surgery Specimen Level IV Cytospin Fluid HEADER OPERATION: Ultrasound guided paracentesis PRE-OP DIAGNOSIS: New onset ascites TISSUE SUBMITTED: A- Paracentesis fluid for cytology DIAGNOSIS CYTOLOGY A. Peritoneal fluid, ascites, paracentesis (cytospin, cellblock): - Few atypical cells of undetermined significance. - Mild chronic inflammation. CYTOLOGY STUDY Slides are reviewed. CYTOLOGY GROSS A. Received is 110 ml of pale-yellow fluid labeled with the patient's name and and designated per the requisition as Paracentesis fluid. Submitted for cytology and cell block preparation. 09/28/2024 CPT: 92614,43023 ,[id number] ADDENDUM ADDENDUM ADDENDUM ADDENDUM ADDENDUM ADDENDUM ADDENDUM ADDENDUM ADDENDUM ADDENDUM ADDENDUM ADDENDUM ADDENDUM ADDENDUM ADDENDUM ADDENDUM ADDENDUM ADDENDUM ADDENDUM 10/11/2024 11:16 ADDENDUM 10/11/2024 11:16 ADDENDUM 10/11/2024 11:16 ADDENDUM 10/11/2024 11:16 ADDENDUM 10/11/2024 11:16 This addendum is to report the IHCs performed on the cellblock at [facility]: Claudin-4 and BerEp4 both highlight rare cells consistent with epithelial origin (as opposed to mesothelial origin). This finding is consistent with the known malignant tumor biopsied in the liver (see [id number]). All controls show appropriate reactivity. All immunohistochemistry, in situ hybridization, and histochemical tests were developed by and are performed at the [facility], [address] [address], [place] [address]. All Immunofluorescent (IF)?tests were developed by and are performed at the [facility], [address], [place], [place] ?[address]. All tests reported here, except those addressing HER2 overexpression as a predictive marker, have not been cleared by or approved by the [place] Food and Drug Administration (FDA). The laboratory is regulated under CLIA as qualified to perform high-complexity testing. The tests are used for clinical purposes. They should not be regarded as investigational or for research.
[2024-09-28 12:17] LABS: Body Fluid Mononuclear WBC # 0.377 10^3/uL; Body Fluid Mononuclear WBC % 98.0 %; Body Fluid Polynuclear WBC # 0.008 10^3/uL; Body Fluid Polynuclear WBC % 2.0 %; White Blood Count/Body Fluid 0.385 10^3/uL
[2024-09-28 13:39] LABS: Reflex Lactate? Y
[2024-09-28] MEDS: Albumin Human 25% (100 mL) 25 GM/100 ML BAG IV ×2 (13:41→17:17)
--- NOTE | 2024-09-28 14:15 | CASEMGMT ---
INEZ SHORE NOTE: Intro role of CM to patient and ROBERT form explained re: Observation status for treatment of intractable abdominal pain, small ascites, and UTI.? Explained hospitalization will be paid per her insurance policy for Outpatient billing?and condition will continue to be evaluated for Inpt necessity. Also let pt know that [facility] sends paper in the billing packet with their phone number if questions arise. Pt verbalizes understanding and does not have further questions. ?Form signed, copy made and placed in chart, and original given to pt. Arminda FUNG RN CM
--- NOTE | 2024-09-28 14:40 | US_ITS ---
PROCEDURE: ABDOMEN LIMITED 09/28/2024 REASON FOR EXAM: ABN CT AND PT WITH PAIN RUQ COMPARISON: CT abdomen pelvis 09/05/2024. FINDINGS: Liver: Enlarged, diffusely echogenic suggesting fatty infiltration. The bile ducts are within normal limits. The major portal vein is patent with normal directional flow and midline. Focal fatty sparing adjacent to the gallbladder. No visualized suspicious hepatic masses. Gallbladder: There are echogenic gallstones, with pericholecystic fluid and borderline gallbladder wall thickening. A sonographic Mclean sign is present. Common bile duct: Normal measuring 0.3 cm. Pancreas: Obscured by bowel gas. Other: Moderate volume ascites. Visualized portions of the right kidney are unremarkable, with unchanged right parapelvic cysts. US/Abdomen Limited IMPRESSION: 1. Findings suggestive of acute cholecystitis. 2. Hepatomegaly with moderate volume ascites. Reading Location: [id number]
[2024-09-28] MEDS: 0.9% Normal Saline (1000mL) 1,000 ML 75 ML IV (15:18)
[2024-09-28 15:48] LABS: Auto B Fluid Analyzer BKGD Ct COUNTS W/IN LIMITS (W/IN LIMITS); Source- Body Fluid ASCITES FLUID
[2024-09-28 15:49] LABS: Appearance/Body Fluid CLEAR; Color/Body Fluid LT YEL; Neutrophil (Segs) 0 %
[2024-09-28 15:50] LABS: Body Fluid QC Type(s) BF2
[2024-09-28 15:52] LABS: Red Cell Count/Body Fluid 20 /mm3
--- NOTE | 2024-09-28 16:15 | CASEMGMT ---
INEZ CM into pt room, pt lying in bed in no distress. Pt states she lives alone in a single story apt with no steps to enter. Pt states she is pretty indep at home. States she bathed and dressed herself yesterday. Pt states she doesn't have the private duty aides any longer but it is being worked on to get another one. Pt has [employer] and medic alert at home as well as FWW, cane, shower chair and grab bars, CGM sensors and supplies, BGM with sufficient supplies, needles and insulin. Pt states she does not have HHC but has had [facility] in the past as well as [facility]. Pt does not feel she needs HHC at this time. DC Plan: Home
--- NOTE | 2024-09-28 17:57 | PCM.PN.HOSP ---
Reason for Visit Chief Complaint: Persistent abdominal pain with distention and right arm swelling Subjective Subjective Pt c/o RUL still even after para. Still has gallbladder. Asking for something else for pain. Objective Data Objective Data Vital Signs: Vital Signs Temp Pulse Resp BP Pulse Ox O2 Del Method O2 Flow Rate 97.9 F 88 18 105/70 99 Nasal Cannula 2 09/28/24 13:14 09/28/24 13:46 09/28/24 13:46 09/28/24 13:14 09/28/24 13:14 09/28/24 13:14 09/28/24 13:20 Oxygen Flow Rate (L/min) 2 Oxygen Delivery Method Nasal Cannula Weight: 131.8 kg Body Mass Index (BMI) 49.6 Intake & Output: Intake and Output for Last 24 Hours 09/26/24 09/27/24 09/28/24 23:59 23:59 23:59 Intake Total 50 / 50 1328.96 / 1328.96 Output Total 66306 / 58734 Balance 50 / 50 -33818.04 / -28697.04 Lab / Micro Data 09/28/24 05:03 09/28/24 05:03 Labs: Laboratory Results - last 24 hr 09/27/24 16:40: TSH 53.600 H, Free T4 0.40 L 09/27/24 17:04: Urine RBC 0-5 SEEN, Urine WBC 25-50 SEEN, Ur Squamous Epith Cells 10-25 SEEN, Urine Bacteria 3+, Urine Mucus 0 SEEN 09/27/24 20:45: POC Glucose 123 H 09/28/24 05:03: WBC 15.7 H, RBC 3.48 L, Hgb 10.6 L, Hct 32.9 L, MCV 94.5, MCH 30.5, MCHC 32.2, RDW Std Deviation 61.5 H, RDW Coeff of Alfredo 17.7 H, Plt Count 548 H, MPV 9.6, Sodium 136, Potassium 3.1 L, Chloride 102, Carbon Dioxide 18.2 L, Anion Gap 16 H, BUN 14, Creatinine 1.25 H, Estim Creat Clear Calc 69.48, Est GFR (MDRD) Non-Af 51 L, BUN/Creatinine Ratio 11.4, Glucose 120 H, Calcium 8.4 09/28/24 06:28: POC Glucose 132 H 09/28/24 08:58: PT 13.9, INR 1.0, APTT 29.4 09/28/24 09:34: Lactic Acid 2.9 H* 09/28/24 10:33: Fluid Source ASCITES FLUID, Fluid Color LT YEL, Fluid Appearance CLEAR, Fluid WBC 0.385, Fluid RBC 20, Fluid Tot Cell Count 0.486 H, Fld Polynuclear WBCs # 0.008, Fld Polynuclear WBCs % 2.0, Fluid Mononuclear WBCs 0.377, Fld Mononuclear WBCs % 98.0, Fluid Neutrophils 0, Fluid Lymphocytes 68, Fluid Monocytes 7, Fluid Macrophages 23, Fld Mesothelial Cells 2, Fl Pathologist Comment May follow, Fluid Comment 2 SEE COMMENT 09/28/24 14:56: Lactic Acid 3.1 H* 09/28/24 16:19: POC Glucose 109 H Micro: Microbiology 09/27/24 17:04 Urine, Clean Catch Urine Culture - Preliminary Gram negative annika ABG Data ABG results: ABG 09/28/24 09:10 Specimen Type MALISSA Sample Site Not entered VBG pH 7.42 VBG pO2 193 H VBG HCO3 25 VBG Total CO2 26 VBG O2 Sat (Calc) 100 H VBG Base Excess 1 POC Mix VBG pCO2 Pt Tmp 38.9 L O2 Delivery Device Not entered Radiography Diagnostic Testing: Radiology Impression Paracentesis Ultrasound 09/27/24 18:14 IMPRESSION: Successful diagnostic and therapeutic ultrasound-guided paracentesis. Laboratory results pending. Reading Location: [place] [id number] Physical Exam Const alert, oriented x3, no apparent distress and well nourished; Negative for average body habitus or healthy appearing Constitutional Narrative: Super morbidly obese, white female, lying in bed, family at bedside, appears slightly uncomfortable complaining of right upper quadrant pain but nontoxic HEENT head/scalp atraumatic and moist oral mucous membranes HEENT Narrative: Mallampati 4, no thrush Head and Scalp: normocephalic Resp normal respiratory effort, no retractions, no use of accessory muscles and clear to auscultation bilaterally Resp Narrative: Diminished and exam limited by body habitus Auscultation: Negative for rales, rhonchi or wheezes Cardio regular rate, regular rhythm, S1 normal heart sound, S2 normal heart sound, no murmurs, no rub, no gallops and no clicks GI normal to inspection, nondistended, normoactive bowel sounds and soft to palpation GI Narrative: Right upper quadrant tenderness Extremity Extremity Narrative: Bilateral lower extremity chronic edema, no cyanosis or clubbing Neuro oriented x3, moves all extremities and no focal motor deficits Speech: speech normal Psych Psych Narrative: Affect is flat but patient interacts appropriately Assessment & Plan Assessment/Plan (1) Pain and swelling of right upper extremity: (2) Abdominal pain: (3) Ascites: (4) Anticoagulated on apixaban: (5) Leukocytosis: PLAN: Plan RUQ Pain/Ascites -S/P paracentesis about 7000 cc - continue abx until cx -await cx -abn density in gallbladder fossa--> check US first and possible MRCP -add prn Dilaudid -bentyl - CT overtly unremarkable - Lipase is normal - LFTs are not significantly elevated R UE swelling -elevation -anticoagulated with Eliquis Lactic acidosis - Etiology is unclear - pH is normal - No pneumatosis on CT of the abdomen pelvis - Repeat lab in a.m. - IV fluids as ordered Hypothyroidism - Poorly controlled - Was recently hospitalized with myxedema coma in early July due to medication noncompliance - Will continue oral Synthroid - Will need repeat TSH in 2 to 3 weeks after discharge Acute on chronic debility - Patient uses wheeled walker at the nursing facility and has decreased mobility - Continue PT/OT DVT/PE - Continue Eliquis -Diagnosed on 08/28/2024 Right eye infection Thin continue home eyedrops DAVY - PRN BIPAP COPD/allergic rhinitis - Continue home inhalers - As needed albuterol History of migraine - Hold medications for now and restart if needed History of stroke - No longer on aspirin due to anticoagulation with apixaban - Continue secondary risk factor modification DM-2 - Patient well-controlled with sliding scale - Transition to AC once patient able to eat - cardiac/carb controlled diet Essential hypertension/hyperlipidemia - Continue home antihypertensives and statin Diabetic neuropathy - Continue home gabapentin Gastroparesis - Patient had previously been on Reglan - Hold for now as it is not in her MAR currently Depression/anxiety - Continue home trazodone and citalopram Morbid obesity - BMI is 49.6 - Complicates treatment, prognosis, outcomes - highly recommend weight loss DVT prophylaxis - Apixaban CODE STATUS - DNR CCA with no intubation Charges/Coding Visit Charges Inpatient E&M: 26488 Subs Hosp L2
[2024-09-28] MEDS: APIXABAN 5 MG TABLET PO (21:22)
[2024-09-29] VITALS (9 sets, daily range): BP systolic 98–116; BP diastolic 52–78; PULSE 66–92; RESP 16–18; TEMP 36.6–37; O2SAT 94–100
[2024-09-29] MEDS: Meropenem 500 MG in 0.9% Normal Saline (50mL MB+) 50 ML 100 MG IV ×3 (06:00→21:18)
[2024-09-29] MEDS: 0.9% Normal Saline (1000mL) 1,000 ML 75 ML IV (06:53)
[2024-09-29 07:29] LABS: Magnesium 2.2 mg/dL (1.5-2.2)
[2024-09-29 07:34] LABS: AST(SGOT) 21 U/L (<=31); Alanine Aminotransfer ALT/SGPT < 5 U/L (<=34); Albumin, Serum 2.9 g/dL (3.5-5.0); Alkaline Phosphatase 106 U/L (35-104); Anion Gap 9 (5-15); BUN 9 mg/dL (4-19); BUN/Creat Ratio 10.3 RATIO (10-20); Calcium,Total 7.7 mg/dL (7.6-11.0); Carbon Dioxide 24.2 mmol/L (21.0-32.0); Chloride 106 mmol/L (98-108); Estimated Creatinine Clearance 94.40 ml/min (50-250); Globulin 2.2 g/dL (2.2-4.2); Glucose 98 mg/dL (70-99); Potassium 3.5 mmol/L (3.3-5.1)
[2024-09-29] MEDS: Albuterol 2.5 MG/3 ML VIAL.NEB. INHALATION ×3 (07:43→19:31)
[2024-09-29] MEDS: Budesonide Respules 0.5 MG/2 ML AMPUL.NEB. INHALATION ×2 (07:43→19:31)
[2024-09-29 07:50] LABS: Hematocrit 33.1 % (37-47); Hemoglobin 10.6 g/dL (12.0-15.0); Immature Granulocytes Count 0.060 X10^3/uL (0.0-0.0); Mean Corp Hgb Conc 32.0 g/dL (32-36); Mean Corpuscular Volume 95.7 fL (81-99); Mean Platelet Vol. 9.8 fl (6.2-12.0); NRBC Flagged by Analyzer 0 % (0-5); Platelet Count 471 K/mm3 (150-450); RBC Distribution Width CV 17.3 % (11.6-14.6); RBC Distribution Width SD 60.8 fl (35.1-43.9); Red Blood Count 3.46 M/mm3 (4.2-5.4); White Blood Count 12.4 K/mm3 (4.4-11.0)
--- NOTE | 2024-09-29 08:30 | NURSING ---
pt taken to radiology for testing
[2024-09-29] MEDS: APIXABAN 5 MG TABLET PO (10:02)
[2024-09-29] MEDS: Fluticasone 0.05% 1 SPRAY NASAL.SRY 2 SPRAY NASAL (10:02)
--- NOTE | 2024-09-29 15:27 | PN.HOSP_ITS ---
Reason for Visit Chief Complaint: Persistent abdominal pain with distention and right arm swelling Subjective Subjective Patient states she is still having some right upper quadrant pain however its better than yesterday. Abdominal ultrasound was pending at the time of evaluation. Since it has resulted and shows acute cholecystitis. Discussed with patient and will consult general surgery. Objective Data Objective Data Vital Signs: Vital Signs Temp Pulse Resp BP Pulse Ox O2 Del Method O2 Flow Rate 97.8 F 92 18 104/61 95 Room Air 2 09/29/24 14:48 09/29/24 14:48 09/29/24 14:48 09/29/24 14:48 09/29/24 14:48 09/29/24 14:48 09/29/24 07:45 FiO2 21 09/28/24 23:10 Oxygen Flow Rate (L/min) 2 Oxygen Delivery Method Room Air Weight: 131.8 kg Body Mass Index (BMI) 49.6 Intake & Output: Intake and Output for Last 24 Hours 09/27/24 09/28/24 09/29/24 23:59 23:59 23:59 Intake Total 50 / 50 1758.96 / 1758.96 1756.75 / 1756.75 Output Total 97718 / 21693 Balance 50 / 50 -59663.04 / -21710.04 1756.75 / 1756.75 Lab / Micro Data 09/29/24 06:40 09/29/24 06:40 Labs: Laboratory Results - last 24 hr 09/28/24 10:33: Fluid Source ASCITES FLUID, Fluid Color LT YEL, Fluid Appearance CLEAR, Fluid WBC 0.385, Fluid RBC 20, Fluid Tot Cell Count 0.486 H, Fld Polynuclear WBCs # 0.008, Fld Polynuclear WBCs % 2.0, Fluid Mononuclear WBCs 0.377, Fld Mononuclear WBCs % 98.0, Fluid Neutrophils 0, Fluid Lymphocytes 68, Fluid Monocytes 7, Fluid Macrophages 23, Fld Mesothelial Cells 2, Fl Pathologist Comment May follow, Fluid Comment 2 SEE COMMENT 09/28/24 14:56: Lactic Acid 3.1 H* 09/28/24 16:19: POC Glucose 109 H 09/28/24 21:27: POC Glucose 178 H 09/29/24 06:04: POC Glucose 116 H 09/29/24 06:40: WBC 12.4 H, RBC 3.46 L, Hgb 10.6 L, Hct 33.1 L, MCV 95.7, MCH 30.6, MCHC 32.0, RDW Std Deviation 60.8 H, RDW Coeff of Alfredo 17.3 H, Plt Count 471 H, MPV 9.8, Immature Gran % (Auto) 0.500, Neut % (Auto) 75.8 H, Lymph % (Auto) 11.3 L, [place] % (Auto) 9.8, Eos % (Auto) 2.1, Baso % (Auto) 0.5, Absolute Neuts (auto) 9.4 H, Absolute Lymphs (auto) 1.40, Nucleated RBC % 0, Sodium 138, Potassium 3.5, Chloride 106, Carbon Dioxide 24.2, Anion Gap 9, BUN 9, Creatinine 0.92, Estim Creat Clear Calc 94.40, Est GFR (MDRD) Non-Af 74, BUN/Creatinine Ratio 10.3, Glucose 98, Calcium 7.7, Phosphorus 3.4, Magnesium 2.2, Total Bilirubin 0.38, AST 21, ALT < 5, Alkaline Phosphatase 106 H, Total Protein 5.1 L , Albumin 2.9 L, Globulin 2.2, Albumin/Globulin Ratio 1.3 09/29/24 12:34: POC Glucose 167 H Micro: Microbiology 09/27/24 17:04 Urine, Clean Catch Urine Culture - Preliminary GNR Poss Pseudomonas sp Radiography Diagnostic Testing: Radiology Impression Abdomen Ultrasound 09/28/24 14:40 IMPRESSION: 1. Findings suggestive of acute cholecystitis. 2. Hepatomegaly with moderate volume ascites. Reading Location: [id number] Physical Exam Const alert, oriented x3, no apparent distress and well nourished; Negative for average body habitus or healthy appearing Constitutional Narrative: Super morbidly obese, white female, lying in bed, appears comfortable at this time, does not look toxic General Appearance: cooperative HEENT normocephalic, head/scalp atraumatic and moist oral mucous membranes HEENT Narrative: Mallampati 4, mucous membranes are dry Resp normal respiratory effort, normal air movement, no retractions, no use of accessory muscles and clear to auscultation bilaterally Resp Narrative: Diminished and exam limited by body habitus Auscultation: Negative for rales, rhonchi or wheezes Cardio regular rate, regular rhythm, S1 normal heart sound, S2 normal heart sound, no murmurs, no rub, no gallops and no clicks GI normal to inspection, nondistended, normoactive bowel sounds and soft to palpation GI Narrative: Persistent right upper quadrant tenderness Extremity Extremity Narrative: Bilateral lower extremity chronic edema, no cyanosis or clubbing Neuro moves all extremities and no focal motor deficits Speech: speech normal Psych mental status grossly normal Psych Narrative: Affect is flat but patient interacts appropriately Mood & Affect: anxious Assessment & Plan Assessment/Plan (1) Pain and swelling of right upper extremity: (2) Abdominal pain: (3) Ascites: (4) Anticoagulated on apixaban: (5) Leukocytosis: PLAN: Plan RUQ Pain/Ascites/acute cholecystitis -S/P paracentesis about 7000 cc - continue abx until cx -await cx - Right upper quadrant ultrasound is consistent with acute cholecystitis -Consult general surgery--> patient is anticoagulated due to DVT recently if candidate for surgery at this time may need IVC filter placement and consultation to vascular surgery prior to cholecystectomy but will await consult first also could consider outpatient Lovenox and hold prior to surgery with reinitiation after surgery but will wait general surgery to weigh in on the matter -This is new diagnosis DVT so I am not comfortable stopping anticoagulation on her without a definitive plan she is a bit complicated-a lot complicated she is on Eliquis with a newly diagnosed DVT on 08/28/2024. If surgical treatment is indicated we will likely need Dr. Hart to evaluate for IVC filter especially with pending abdominal surgery -continue prn Dilaudid -bentyl - Will make diet fat restricted Lactic acidosis - Suspect related to gallbladder disorder and dehydration on presentation Leukocytosis - Continue antibiotics - Await cultures Acute on chronic anemia - Mild drop of about 1 g - Suspect it is related to IV fluids and dilutional nature - No signs of acute blood loss - Repeat CBC in a.m. Abnormal UA - Culture is pending next-continue antibiotics with meropenem Hypothyroidism - Poorly controlled - Was recently hospitalized with myxedema coma in early July due to medication noncompliance - Will continue oral Synthroid - Will need repeat TSH in 2 to 3 weeks after discharge Acute on chronic debility - Patient uses wheeled walker at the nursing facility and has decreased mobility - Continue PT/OT DVT/PE - Continue Eliquis for now until we decide what to do from an interventional standpoint related to her gallbladder -Diagnosed on 08/28/2024 Right eye infection Thin continue home eyedrops DAVY - PRN BIPAP COPD/allergic rhinitis - Continue home inhalers - As needed albuterol History of migraine - Hold medications for now and restart if needed History of stroke - No longer on aspirin due to anticoagulation with apixaban - Continue secondary risk factor modification DM-2 - Patient well-controlled with sliding scale - Transition to AC once patient able to eat - cardiac/carb controlled diet Essential hypertension/hyperlipidemia - Continue home antihypertensives and statin Diabetic neuropathy - Continue home gabapentin Gastroparesis - Patient had previously been on Reglan - Hold for now as it is not in her MAR currently Depression/anxiety - Continue home trazodone and citalopram Morbid obesity - BMI is 49.6 - Complicates treatment, prognosis, outcomes - highly recommend weight loss DVT prophylaxis - Apixaban CODE STATUS - DNR CCA with no intubation Charges/Coding Visit Charges Inpatient E&M: 25193 Subs Hosp L2
[2024-09-29] MEDS: HYDROmorphone 0.5 MG/0.5 ML SYRINGE IV ×2 (16:36→21:19)
[2024-09-29] MEDS: 0.9% Normal Saline (250mL Bag) 250 ML 15 ML IV (21:35)
[2024-09-29] MEDS: Lidocaine 2% Viscous15 ML UDC 15 ML PO (23:10)
[2024-09-30] MEDS: Meropenem 500 MG in 0.9% Normal Saline (50mL MB+) 50 ML 100 MG IV ×3 (04:28→21:04)
[2024-09-30] MEDS: HYDROmorphone 0.5 MG/0.5 ML SYRINGE IV ×2 (04:32→12:42)
[2024-09-30 04:47] VITALS: BP 132/74; PULSE 86; RESP 16; TEMP 36.9; O2SAT 95
[2024-09-30 05:23] LABS: Hematocrit 31.9 % (37-47); Hemoglobin 10.2 g/dL (12.0-15.0); Immature Granulocytes Count 0.080 X10^3/uL (0.0-0.0); Mean Corp Hgb Conc 32.0 g/dL (32-36); Mean Corpuscular Volume 94.1 fL (81-99); Mean Platelet Vol. 9.5 fl (6.2-12.0); NRBC Flagged by Analyzer 0 % (0-5); Platelet Count 497 K/mm3 (150-450); RBC Distribution Width CV 17.4 % (11.6-14.6); RBC Distribution Width SD 61.0 fl (35.1-43.9); Red Blood Count 3.39 M/mm3 (4.2-5.4); White Blood Count 12.6 K/mm3 (4.4-11.0)
[2024-09-30 05:50] LABS: AST(SGOT) 28 U/L (<=31); Alanine Aminotransfer ALT/SGPT 9 U/L (<=34); Albumin, Serum 2.7 g/dL (3.5-5.0); Alkaline Phosphatase 110 U/L (35-104); Anion Gap 9 (5-15); BUN 7 mg/dL (4-19); BUN/Creat Ratio 9.0 RATIO (10-20); Calcium,Total 8.5 mg/dL (7.6-11.0); Carbon Dioxide 25.3 mmol/L (21.0-32.0); Chloride 102 mmol/L (98-108); Estimated Creatinine Clearance 107.22 ml/min (50-250); Globulin 2.4 g/dL (2.2-4.2); Glucose 100 mg/dL (70-99); Potassium 3.9 mmol/L (3.3-5.1)
--- NOTE | 2024-09-30 07:23 | PN.HOSP_ITS ---
Reason for Visit Chief Complaint: Persistent abdominal pain with distention and right arm swelling Subjective Subjective Patient states her right upper quadrant pain seems to be better but she is complaining of left-sided back pain. Tolerating p.o. diet and liquids without difficulty. Objective Data Objective Data Vital Signs: Vital Signs Temp Pulse Resp BP Pulse Ox O2 Del Method O2 Flow Rate 98.4 F 86 16 132/74 H 95 Room Air 2 09/30/24 04:47 09/30/24 04:47 09/30/24 04:47 09/30/24 04:47 09/30/24 04:47 09/30/24 04:47 09/29/24 21:36 FiO2 21 09/28/24 23:10 Oxygen Flow Rate (L/min) 2 Oxygen Delivery Method Room Air Weight: 131.8 kg Body Mass Index (BMI) 49.6 Intake & Output: Intake and Output for Last 24 Hours 09/28/24 09/29/24 09/30/24 23:59 23:59 23:59 Intake Total 1758.96 / 1758.96 3806.00 / 4106.00 750 / 750 Output Total 39265 / 21946 250 / 250 Balance -02775.04 / -88248.04 3556.00 / 3856.00 750 / 750 Lab / Micro Data 09/30/24 05:06 09/30/24 05:06 Labs: Laboratory Results - last 24 hr 09/29/24 06:40: WBC 12.4 H, RBC 3.46 L, Hgb 10.6 L, Hct 33.1 L, MCV 95.7, MCH 30.6, MCHC 32.0, RDW Std Deviation 60.8 H, RDW Coeff of Alfredo 17.3 H, Plt Count 471 H, MPV 9.8, Immature Gran % (Auto) 0.500, Neut % (Auto) 75.8 H, Lymph % (Auto) 11.3 L, [place] % (Auto) 9.8, Eos % (Auto) 2.1, Baso % (Auto) 0.5, Absolute Neuts (auto) 9.4 H, Absolute Lymphs (auto) 1.40, Nucleated RBC % 0, Sodium 138, Potassium 3.5, Chloride 106, Carbon Dioxide 24.2, Anion Gap 9, BUN 9, Creatinine 0.92, Estim Creat Clear Calc 94.40, Est GFR (MDRD) Non-Af 74, BUN/Creatinine Ratio 10.3, Glucose 98, Calcium 7.7, Phosphorus 3.4, Magnesium 2.2, Total Bilirubin 0.38, AST 21, ALT < 5, Alkaline Phosphatase 106 H, Total Protein 5.1 L , Albumin 2.9 L, Globulin 2.2, Albumin/Globulin Ratio 1.3 09/29/24 12:34: POC Glucose 167 H 09/29/24 21:27: POC Glucose 117 H 09/30/24 04:45: POC Glucose 105 09/30/24 05:06: WBC 12.6 H, RBC 3.39 L, Hgb 10.2 L, Hct 31.9 L, MCV 94.1, MCH 30.1, MCHC 32.0, RDW Std Deviation 61.0 H, RDW Coeff of Alfredo 17.4 H, Plt Count 497 H, MPV 9.5, Immature Gran % (Auto) 0.600, Neut % (Auto) 72.6 H, Lymph % (Auto) 14.7 L, [place] % (Auto) 9.7, Eos % (Auto) 2.0, Baso % (Auto) 0.4, Absolute Neuts (auto) 9.1 H, Absolute Lymphs (auto) 1.85, Nucleated RBC % 0, Sodium 136, Potassium 3.9, Chloride 102, Carbon Dioxide 25.3, Anion Gap 9, BUN 7, Creatinine 0.81, Estim Creat Clear Calc 107.22, Est GFR (MDRD) Non-Af 86, BUN/Creatinine Ratio 9.0 L, Glucose 100 H, Calcium 8.5, Total Bilirubin 0.35, AST 28, ALT 9, A lkaline Phosphatase 110 H, Total Protein 5.0 L, Albumin 2.7 L, Globulin 2.4, Albumin/Globulin Ratio 1.1 Micro: Microbiology 09/27/24 17:04 Urine, Clean Catch Urine Culture - Preliminary GNR Poss Pseudomonas sp Radiography Diagnostic Testing: Radiology Impression Abdomen Ultrasound 09/28/24 14:40 IMPRESSION: 1. Findings suggestive of acute cholecystitis. 2. Hepatomegaly with moderate volume ascites. Reading Location: [facility] Physical Exam Const alert, oriented x3, no apparent distress and well nourished; Negative for average body habitus or healthy appearing Constitutional Narrative: Super morbidly obese, white female, sitting up in a chair at the bedside eating breakfast and watching television, appears comfortable currently, nontoxic General Appearance: cooperative HEENT normocephalic, head/scalp atraumatic, hearing grossly normal bilaterally and moist oral mucous membranes Resp normal respiratory effort, normal air movement, no retractions, no use of accessory muscles and clear to auscultation bilaterally Resp Narrative: Diminished and exam limited by body habitus Auscultation: Negative for rales, rhonchi or wheezes Cardio regular rate, regular rhythm, S1 normal heart sound, S2 normal heart sound, no murmurs, no rub, no gallops and no clicks GI normal to inspection, nondistended, normoactive bowel sounds and soft to palpation; Negative for non-tender GI Narrative: Right upper quadrant is just mildly tender today Extremity full ROM Extremity Narrative: Bilateral lower extremity chronic edema, no cyanosis or clubbing Neuro moves all extremities and no focal motor deficits Speech: speech normal Psych mental status grossly normal and affect normal Psych Narrative: Interacts appropriately, eye contact is good Mood & Affect: anxious Assessment & Plan Assessment/Plan (1) Pain and swelling of right upper extremity: (2) Abdominal pain: (3) Ascites: (4) Anticoagulated on apixaban: (5) Leukocytosis: PLAN: Plan RUQ Pain/Ascites/acute cholecystitis -S/P paracentesis about 7000 cc - continue abx until cx -await cx - Right upper quadrant ultrasound is consistent with acute cholecystitis - General Surgery has evaluated patient is unclear if this is going to be acute cholecystitis or not and has ordered HIDA scan -If HIDA scan is unremarkable we will plan for discharge tomorrow and transition back to oral Eliquis - Discontinue Dilaudid and transition to p.o. pain medication -bentyl - Continue fat restricted diet Lactic acidosis - Suspect related to gallbladder disorder and dehydration on presentation - Resolved Leukocytosis - Continue antibiotics - Await cultures - Trending down Acute on chronic anemia - Mild drop of about 1 g - Suspect it is related to IV fluids and dilutional nature - No signs of acute blood loss - Repeat CBC in a.m. Abnormal UA - Urine culture shows Pseudomonas but patient was not symptomatic and colony counts are at only 25-50,000 CFU's you per mL - On meropenem for abdomen so we will continue while hospitalized but may be able to discontinue antibiotics depending on the above at the time of discharge Anemia - Patient with chronic anemia and counts are overall stable Hypothyroidism - Poorly controlled - Was recently hospitalized with myxedema coma in early July due to medication noncompliance - Will continue oral Synthroid - Will need repeat TSH in 2 to 3 weeks after discharge Acute on chronic debility - Patient uses wheeled walker at the nursing facility and has decreased mobility - Continue PT/OT DVT/PE - Patient is on therapeutic Lovenox for now in preparation should she require any procedures for the above - Will restart Eliquis at the time of discharge -Diagnosed on 08/28/2024 Right eye infection Thin continue home eyedrops DAVY - PRN BIPAP COPD/allergic rhinitis - Continue home inhalers - As needed albuterol History of migraine - Hold medications for now and restart if needed History of stroke - No longer on aspirin due to anticoagulation with apixaban - Continue secondary risk factor modification DM-2 - Patient well-controlled with sliding scale - Subcu insulin AC and at bedtime now that has p.o. diet - cardiac/carb controlled diet Essential hypertension/hyperlipidemia - Continue home antihypertensives and statin Diabetic neuropathy - Continue home gabapentin Gastroparesis - Patient had previously been on Reglan - Hold for now as it is not in her MAR currently Depression/anxiety - Continue home trazodone and citalopram Morbid obesity - BMI is 49.6 - Complicates treatment, prognosis, outcomes - highly recommend weight loss DVT prophylaxis - Apixaban on hold in case procedure is required - Continue therapeutic Lovenox CODE STATUS - DNR CCA with no intubation Charges/Coding Visit Charges Inpatient E&M: 99089 Subs Hosp L2
[2024-09-30 08:45] VITALS: BP 120/59; PULSE 90; RESP 16; TEMP 36.7; O2SAT 98
--- NOTE | 2024-09-30 08:48 | NURSING ---
pt resting in bed, declines to wear a gown, only has sheet covering her. encouraged clothing use while staff in room providing care
--- NOTE | 2024-09-30 08:48 | EX.PCM.CON.S ---
Assessment & Plan Assessment/Plan (1) Ascites: (2) Abdominal pain: PLAN: Plan The patient is a 54-year-old female with multiple medical problems who has complaints of upper abdominal pain which currently seems to be mostly located in the left upper quadrant. This pain has been persistent for the past 2 weeks. She unfortunately has been noncompliant with her thyroid medication and has been recently hospitalized for myxedema coma. In order to evaluate her abdominal pain, a right upper quadrant ultrasound was performed and showed very mild pericholecystic fluid and possible gallbladder wall thickening. While this certainly could be related to her recent ascites for which she had 8 L of fluid recently removed, there was concern for possible cholecystitis as a cause for her pain. The fact that her pain is mostly in the left upper quadrant and does not seem to be associated with eating, I am skeptical if the gallbladder is the cause for her current pain. I have taken the liberty of ordering a HIDA scan to be performed tomorrow to further evaluate her gallbladder as well as her liver functioning. If this is ultimately thought to be gallbladder related, I would be very hesitant to recommend cholecystectomy given the recent ascites. The reason for this is that if her body continues to produce fluid postoperatively, her incisions will continue to leak ascites fluid and would pose a great problem from a wound care standpoint. Certainly a cholecystostomy tube would be another consideration however there would still be concern for leakage of ascites fluid around the insertion site. At this point I would recommend awaiting results of HIDA scan. I would not discontinue her current Eliquis for her DVT. HPI Consult Data Date of Consult: 09/30/24 HPI Narrative Reason for Consultation: Abdominal pain HPI Narrative: COURTNEY CARMEN, is a 54 F who was admitted to [facility] on 09/27/2024 with complaints of persistent abdominal pain for the past couple of weeks along with some right arm swelling. Patient was recently hospitalized due to myxedema coma secondary to not taking her appropriate Synthroid medication. She has multiple medical problems including obesity, diabetes, history of stroke, hypertension, hyperlipidemia, COPD. Patient has been in and out of the emergency department several times in the past few weeks with various complaints. She presented to the emergency department and CT scan was performed and showed a considerable amount of free fluid throughout the abdomen consistent with ascites of unknown etiology. It is suspected that this may be related to her myxedema. She underwent a recent paracentesis and about 8 L of ascites fluid was removed. She continued to have abdominal pain and so an ultrasound was recently performed yesterday of her right upper quadrant. This showed some mild pericholecystic fluid and possible mild gallbladder wall thickening. The question of cholecystitis was raised. As result general surgery consult was obtained. Review of her chart reveals LFTs to be essentially normal except for slightly elevated alkaline phosphatase. Patient was also noted to have recent DVT and has just been started on Eliquis. Patient was seen this morning and does endorse abdominal pain however this pain seems to be more centralized over the left upper quadrant this morning. Really minimal complaints of pain in the right upper quadrant of her abdomen. She denies any association with food. She states that she has been eating during her hospitalization without any exacerbation of her pain. She denies any fevers or chills currently. Her white count continues to decrease [facility] Medical History Toxic metabolic encephalopathy MARYANA (acute kidney injury) Noncompliance with medication regimen Acute hypoxic on chronic hypercapnic respiratory failure Myxedema coma Elevated serum creatinine Sinus bradycardia on ECG Kidney failure MARYANA (acute kidney injury) Fatigue MARYANA (acute kidney injury) Walker as ambulation aid Ambulates with cane Low iron History of renal disease High cholesterol DVT (deep venous thrombosis) PONV (postoperative nausea and vomiting) Stroke/cerebrovascular accident Sleep apnea [facility] follow-up encounter Scalp hematoma Pulmonary embolism Post-menopausal Thyroid disease Injury of head and neck Dietary restriction Difficulty swallowing BiPAP (biphasic positive airway pressure) dependence COPD (chronic obstructive pulmonary disease) Shortness of breath on exertion Leg cramps History of pain when walking History of edema History of echocardiogram History of stress test Syncope Abnormal glucose Noncompliance DAVY treated with BiPAP UTI (urinary tract infection) Vitamin D deficiency Restless leg syndrome Vitamin B12 deficiency Iron deficiency anemia History of chronic back pain Wears glasses Arthritis Non-smoker Hydronephrosis Depression Anemia Migraine headache Chronic kidney disease Diabetes mellitus Gout Celiac disease Hyperlipidemia GERD (gastroesophageal reflux disease) Dyspnea on exertion Chest pain Hypersomnia Cardiac murmur Microcytic anemia Hypertension Morbid obesity with BMI of 40.0-44.9, adult Asthma Hypothyroidism Anxiety Home Medications ?Medication ?Instructions ?Recorded ?Last Taken ?Type insulin lispro 100 unit/mL 1 sliding scale dose subcut ACHS 06/27/24 06/27/24 History subcutaneous pen (Humalog KwikPen diabetes (U-100) Insulin) rimegepant 75 mg disintegrating 75 mg PO DAILY PRN migraine 06/27/24 Unknown History tablet (Nurtec ODT) citalopram 20 mg tablet 40 mg (2 x 20 mg) PO DAILY 08/08/24 06/27/24 Rx depression #1 TAB budesonide-formoterol HFA 160 2 puff inhalation BID 09/02/24 Unknown History mcg-4.5 mcg/actuation aerosol inhaler (Symbicort) cyclobenzaprine 5 mg tablet 5 mg PO QPM 09/02/24 Unknown History diclofenac sodium 3 % topical gel 1 ea topical BID PRN PRN pain 09/02/24 Unknown History (scale score 1-3) fluticasone propionate 50 2 spray intranasal BID allergies 09/02/24 Unknown History mcg/actuation nasal spray,suspension gabapentin 300 mg capsule 300 mg PO TID 09/02/24 Unknown History galcanezumab-gnlm 120 mg/mL 120 mg subcut QMONTH 09/02/24 Unknown History subcutaneous pen injector (Emgality Pen) ganciclovir 0.15 % eye gel (Zirgan) 1 drp RIGHT EYE 4X/DAY 09/02/24 Unknown History lorazepam 0.5 mg tablet 0.5 mg PO TID PRN anxiety 09/02/24 Unknown History moxifloxacin 0.5 % eye drops 1 drp RIGHT EYE Q2H 09/02/24 Unknown History apixaban 5 mg (74 tabs) tablets in 5 mg PO BID #180 tabs 09/24/24 Unknown Rx a dose pack ([employer] DVT-PE Treat 30D Start) atorvastatin 40 mg tablet 40 mg PO QHS cholestrol #90 tabs 09/24/24 Unknown Rx isosorbide mononitrate 30 mg 30 mg PO DAILY #90 tabs 09/24/24 Unknown Rx tablet,extended release 24 hr dicyclomine 20 mg tablet 20 mg PO Q6H PRN PRN abdominal 09/25/24 Unknown Rx discomfort #12 tabs levothyroxine 200 mcg capsule 200 mcg PO QDAY 09/25/24 Unknown History levothyroxine 25 mcg capsule 25 mcg PO QDAY 09/25/24 Unknown History Allergy/AdvReac Type Severity Reaction Status Date / Time hydrochlorothiazide AdvReac Intermediate Contributes Verified 09/27/24 15:57 to gout naproxen (From Naprosyn) AdvReac Intermediate Nausea Verified 09/27/24 15:57 aspirin AdvReac Nausea Verified 09/27/24 15:57 Penicillins AdvReac Other Verified 09/27/24 15:57 Family History Father , Age 72 Hypertension Mother CAD (coronary artery disease) Myocardial infarction, Onset Age: 55 Hypertension Sister CAD (coronary artery disease) Brother Cancer Surgical History History of cardiac catheterization History of History of carpal tunnel surgery of right wrist History of carpal tunnel surgery of left wrist Hx of cystoscopy History of left heart catheterization (11/11/20) history of uterine ablation Social History household members: spouse housing: apartment Smoking Status: Never smoker alcohol intake: never substance use type: does not use caffeine: No ROS Eyes Eyes: Reports systems reviewed and no addt'l complaints, except as documented ENT HEENT: Reports systems reviewed and no addt'l complaints, except as documented Cardiovascular Cardiovascular: Reports systems reviewed and no addt'l complaints, except as documented Respiratory/Chest Respiratory/Chest: Reports systems reviewed and no addt'l complaints, except as documented Gastrointestinal Gastrointestinal: Reports systems reviewed and no addt'l complaints, except as documented Genitourinary Genitourinary: Reports systems reviewed and no addt'l complaints, except as documented Musculoskeletal Musculoskeletal: Reports systems reviewed and no addt'l complaints, except as documented Integumentary Integumentary: Reports systems reviewed and no addt'l complaints, except as documented Physical Exam Narrative The patient is alert and oriented x 3. She is in no acute distress. She is morbidly obese Head is normocephalic and atraumatic. Pupils are equal round and reactive to light. Abdomen is soft, obese and nondistended. Mild to moderate tenderness palpation mostly in the left upper quadrant. Really minimal right upper quadrant pain to palpation currently Medical Records Data Attestation: I reviewed the patient's medical records Lab / Micro Data Attestation: I reviewed the patient's lab results. 09/30/24 05:06 09/30/24 05:06 Labs: Laboratory Results - last 24 hr 09/29/24 12:34: POC Glucose 167 H 09/29/24 21:27: POC Glucose 117 H 09/30/24 04:45: POC Glucose 105 09/30/24 05:06: WBC 12.6 H, RBC 3.39 L, Hgb 10.2 L, Hct 31.9 L, MCV 94.1, MCH 30.1, MCHC 32.0, RDW Std Deviation 61.0 H, RDW Coeff of Alfredo 17.4 H, Plt Count 497 H, MPV 9.5, Immature Gran % (Auto) 0.600, Neut % (Auto) 72.6 H, Lymph % (Auto) 14.7 L, [place] % (Auto) 9.7, Eos % (Auto) 2.0, Baso % (Auto) 0.4, Absolute Neuts (auto) 9.1 H, Absolute Lymphs (auto) 1.85, Nucleated RBC % 0, Sodium 136, Potassium 3.9, Chloride 102, Carbon Dioxide 25.3, Anion Gap 9, BUN 7, Creatinine 0.81, Estim Creat Clear Calc 107.22, Est GFR (MDRD) Non-Af 86, BUN/Creatinine Ratio 9.0 L, Glucose 100 H, Calcium 8.5, Total Bilirubin 0.35, AST 28, ALT 9, Alkaline Phosphatase 110 H, Total Protein 5.0 L, Albumin 2.7 L, Globulin 2.4, Albumin/Globulin Ratio 1.1 Micro: Microbiology 09/27/24 17:04 Urine, Clean Catch Urine Culture - Preliminary GNR Poss Pseudomonas sp Imaging Radiology Impression Abdomen Ultrasound 09/28/24 14:40 IMPRESSION: 1. Findings suggestive of acute cholecystitis. 2. Hepatomegaly with moderate volume ascites. Reading Location: [id number] Charges/Coding Visit Charges Inpatient E&M: 66239 Init Hosp L3
[2024-09-30] MEDS: Fluticasone 0.05% 1 SPRAY NASAL.SRY 2 SPRAY NASAL ×2 (09:02→21:23)
[2024-09-30 12:24] VITALS: PULSE 83; RESP 17
[2024-09-30] MEDS: Albuterol 2.5 MG/3 ML VIAL.NEB. INHALATION ×2 (12:24→19:19)
[2024-09-30] MEDS: 0.9% Saline Lock 10 ML Syringe IV ×3 (12:43→20:59)
[2024-09-30 14:55] VITALS: BP 103/71; PULSE 97; RESP 16; TEMP 36.1; O2SAT 93
[2024-09-30] MEDS: Budesonide Respules 0.5 MG/2 ML AMPUL.NEB. INHALATION (19:19)
[2024-09-30 19:20] VITALS: PULSE 81; RESP 18
[2024-09-30] MEDS: Polyethylene Glycol 3350 17 GM PACKET PO (21:05)
[2024-09-30 21:25] VITALS: BP 122/85; PULSE 98; RESP 16; TEMP 36.6; O2SAT 94
[2024-10-01] VITALS (9 sets, daily range): BP systolic 117–144; BP diastolic 80–95; PULSE 92–106; RESP 14–20; TEMP 36.6–37.1; O2SAT 94–99
[2024-10-01] MEDS: Meropenem 500 MG in 0.9% Normal Saline (50mL MB+) 50 ML 100 MG IV ×3 (06:22→21:59)
[2024-10-01 06:30] LABS: Hematocrit 32.8 % (37-47); Hemoglobin 10.6 g/dL (12.0-15.0); Immature Granulocytes Count 0.140 X10^3/uL (0.0-0.0); Mean Corp Hgb Conc 32.3 g/dL (32-36); Mean Corpuscular Volume 92.9 fL (81-99); Mean Platelet Vol. 9.4 fl (6.2-12.0); NRBC Flagged by Analyzer 0 % (0-5); Platelet Count 523 K/mm3 (150-450); RBC Distribution Width CV 17.2 % (11.6-14.6); RBC Distribution Width SD 58.7 fl (35.1-43.9); Red Blood Count 3.53 M/mm3 (4.2-5.4); White Blood Count 13.8 K/mm3 (4.4-11.0)
[2024-10-01 07:00] LABS: Anion Gap 11 (5-15); BUN 8 mg/dL (4-19); BUN/Creat Ratio 9.8 RATIO (10-20); Calcium,Total 8.6 mg/dL (7.6-11.0); Carbon Dioxide 23.8 mmol/L (21.0-32.0); Chloride 102 mmol/L (98-108); Estimated Creatinine Clearance 108.56 ml/min (50-250); Glucose 107 mg/dL (70-99); Potassium 4.5 mmol/L (3.3-5.1)
[2024-10-01] MEDS: Budesonide Respules 0.5 MG/2 ML AMPUL.NEB. INHALATION ×2 (07:23→19:40)
[2024-10-01] MEDS: Albuterol 2.5 MG/3 ML VIAL.NEB. INHALATION ×3 (07:23→19:39)
--- NOTE | 2024-10-01 08:06 | PCM.PN.SRG ---
Subjective Subjective Patient evaluated laying on her right side in bed. She notes continued pain in the left upper quadrant and into her back. She notes minimal pain on the right upper side. She notes back pain is her main compliant this morning. Objective Data Objective Data Vital Signs: Vital Signs Temp Pulse Resp BP Pulse Ox O2 Del Method O2 Flow Rate 98.5 F 99 20 H 118/80 99 Nasal Cannula 2 10/01/24 03:00 10/01/24 07:24 10/01/24 07:24 10/01/24 03:00 10/01/24 07:24 10/01/24 07:24 10/01/24 07:24 FiO2 21 09/28/24 23:10 Oxygen Flow Rate (L/min) 2 Oxygen Delivery Method Nasal Cannula Weight: 290 lb 9.108 oz Body Mass Index (BMI) 49.6 Intake & Output: Intake and Output for Last 24 Hours 09/29/24 09/30/24 10/01/24 23:59 23:59 23:59 Intake Total 3806.00 / 4106.00 1278.25 / 1278.25 0 / 0 Output Total 250 / 250 Balance 3556.00 / 3856.00 1278.25 / 1278.25 0 / 0 Lab / Micro Data 10/01/24 06:20 10/01/24 06:20 Labs: Laboratory Results - last 24 hr 09/30/24 11:38: POC Glucose 132 H 09/30/24 16:29: POC Glucose 137 H 09/30/24 23:44: POC Glucose 120 H 10/01/24 06:20: WBC 13.8 H, RBC 3.53 L, Hgb 10.6 L, Hct 32.8 L, MCV 92.9, MCH 30.0, MCHC 32.3, RDW Std Deviation 58.7 H, RDW Coeff of Alfredo 17.2 H, Plt Count 523 H, MPV 9.4, Immature Gran % (Auto) 1.000 H, Neut % (Auto) 71.7 H, Lymph % (Auto) 15.6 L, [place] % (Auto) 8.9, Eos % (Auto) 2.2, Baso % (Auto) 0.6, Absolute Neuts (auto) 9.9 H, Absolute Lymphs (auto) 2.14, Nucleated RBC % 0, Sodium 136, Potassium 4.5, Chloride 102, Carbon Dioxide 23.8, Anion Gap 11, BUN 8, Creatinine 0.80, Estim Creat Clear Calc 108.56, Est GFR (MDRD) Non-Af 88, BUN/Creatinine Ratio 9.8 L, Glucose 107 H, Calcium 8.6 Micro: Microbiology 09/27/24 17:04 Urine, Clean Catch Urine Culture - Final Pseudomonas aeruginosa Physical Exam GI GI Narrative: Abdomen- soft, obese, pain with palpation of the left upper quadrant radiating into her back. Palpation of RUQ quadrant radiates pain into the patient's back. Assessment & Plan Assessment/Plan (1) Abdominal pain: (2) Abdominal pain, left upper quadrant: PLAN: Plan I am following this patient in conjunction with Dr. Washington. He has independently evaluated this patient. Labs reviewed Recommend obtaining HIDA scan today If HIDA scan unremarkable, plan to increase diet If HIDA scan is abnormal, will discuss further treatment options i.e. thien tube versus lap thien We will continue to monitor this patient Charges/Coding Visit Charges Inpatient E&M: 83885 Subs Hosp L2
--- NOTE | 2024-10-01 08:46 | NM_ITS ---
PROCEDURE: HEPATOBILLIARY IMG W/PHARM INT 10/01/2024 REASON FOR EXAM: ABD PAIN TECHNIQUE: Intravenous Choletec with planar imaging of the abdomen. 2.6 mcg Kinevac intravenously approximately 60 minutes after the radiopharmaceutical with additional anterior imaging and a region of interest drawn around the gallbladder to calculate a time-activity curve. RADIOPHARMACEUTICAL: Mebrofenin DOSE 5.8mCi COMPARISON: None FINDINGS: There is good uptake of the radiopharmaceutical by the liver. Normal gallbladder visualization with the gallbladder identified by 30 minutes. Gallbladder Ejection Fraction: 85% % (Normal is >35%) NM/Hepatobilliary Img w/Pharm Int IMPRESSION: Normal hepatobiliary scan with ejection fraction of 85%. Reading Location: [id number]
[2024-10-01 11:08] LABS: Albumin, Body Fluid 1.9 g/dL (Not Estab.)
[2024-10-01] MEDS: Polyethylene Glycol 3350 17 GM PACKET PO ×2 (11:46→21:58)
[2024-10-01] MEDS: Fluticasone 0.05% 1 SPRAY NASAL.SRY 2 SPRAY NASAL ×2 (11:46→21:56)
--- NOTE | 2024-10-01 14:23 | CT_ITS ---
PROCEDURE: CT ABD/PELVIS W/WO CONTRAST 10/01/2024 REASON FOR EXAM: MIGRATING ABD PAIN TECHNIQUE: CT ABD/PELVIS W/WO CONTRAST Coronal and Sagittal reconstruction series were provided. CONTRAST: Isovue-300 VOLUME: 100 mL One or more dose reduction techniques were used (e.g., Automated exposure control, adjustment of the mA and/or kV according to patient size, use of iterative reconstruction technique. RADIATION DOSE SUMMARY: CTDlvol: 24.35 mGy DLP: 2472.05 mGycm COMPARISON: None FINDINGS: Lung bases: The lung bases are clear. Coronary artery calcification. Liver: Diffuse fatty infiltration. Hepatomegaly. There is a 5.6 cm 7.8 cm heterogeneous enhancement of the medial aspect of the right lobe of the liver. There is also evidence of a 2.9 cm by 2.4 cm an heterogeneous enhancing nodule in the [place] cholecystic region of the right lobe. Neoplastic process should be ruled out. Gallbladder: Sludge is seen within the gallbladder lumen. Spleen: Normal size. Pancreas: Diffuse fatty atrophy. Adrenals: Unremarkable Kidneys: Bilateral parapelvic renal cysts. Bladder: The urinary bladder is empty. Reproductive Organs: Unremarkable Bowel: Colonic diverticulosis without diverticulitis. Appendix: The appendix is not identified. There is no inflammatory process identified in the right lower quadrant to suggest appendicitis. Lymph nodes: Unremarkable. Vasculature: Mild diffuse atherosclerotic calcifications are noted. Peritoneum / Retroperitoneum: Diffuse ascites. Increased nodular densities surrounding the omentum and deep mesenteric fat suggestive of omental metastasis. 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 Hepatomegaly. Heterogeneous enhancing masses in the right lobe of the liver as described. Sludge seen within the gallbladder lumen. Reading Location: [id number]
--- NOTE | 2024-10-01 14:37 | PN.HOSP_ITS ---
Reason for Visit Chief Complaint: Persistent abdominal pain with distention and right arm swelling Subjective Subjective Patient states she still having abdominal pain however her right upper quadrant pain has gone away and now she is having left upper quadrant pain in the morning when I saw her. She had a HIDA scan which was unremarkable I discussed the results with her at that time she stated the left upper quadrant pain was gone and now she is complaining of horrible lower midline abdominal pain. She initially was refusing to do a contrasted CT because she did not think she could drink the contrast due to nausea. I discussed with her that I really need to get the data to try to make some decisions to see what is going on and she finally agreed with persuasion by her mother. We also strongly encouraged her to get out of bed and sit in a chair and do some ambulation as she was complaining of back pain which is likely related to her positioning. Labs are overtly unremarkable. Adding on CMP but liver functions have been unremarkable. Objective Data Objective Data Vital Signs: Vital Signs Temp Pulse Resp BP Pulse Ox O2 Del Method O2 Flow Rate 98.7 F 102 H 20 H 135/95 H 99 Room Air 2 10/01/24 11:59 10/01/24 13:19 10/01/24 13:19 10/01/24 11:59 10/01/24 11:59 10/01/24 11:59 10/01/24 09:32 FiO2 21 09/28/24 23:10 Oxygen Flow Rate (L/min) 2 Oxygen Delivery Method Room Air Weight: 131.8 kg Body Mass Index (BMI) 49.6 Intake & Output: Intake and Output for Last 24 Hours 09/29/24 09/30/24 10/01/24 23:59 23:59 23:59 Intake Total 3806.00 / 4106.00 1278.25 / 1278.25 50 / 50 Output Total 250 / 250 Balance 3556.00 / 3856.00 1278.25 / 1278.25 50 / 50 Lab / Micro Data 10/01/24 06:20 10/01/24 06:20 Labs: Laboratory Results - last 24 hr 09/27/24 10:33: Fluid Albumin 1.9 09/28/24 11:40: POC Glucose 100 09/28/24 11:49: POC Glucose 134 H 09/30/24 16:29: POC Glucose 137 H 09/30/24 23:44: POC Glucose 120 H 10/01/24 06:20: WBC 13.8 H, RBC 3.53 L, Hgb 10.6 L, Hct 32.8 L, MCV 92.9, MCH 30.0, MCHC 32.3, RDW Std Deviation 58.7 H, RDW Coeff of Alfredo 17.2 H, Plt Count 523 H, MPV 9.4, Immature Gran % (Auto) 1.000 H, Neut % (Auto) 71.7 H, Lymph % (Auto) 15.6 L, [place] % (Auto) 8.9, Eos % (Auto) 2.2, Baso % (Auto) 0.6, Absolute Neuts (auto) 9.9 H, Absolute Lymphs (auto) 2.14, Nucleated RBC % 0, Sodium 136, Potassium 4.5, Chloride 102, Carbon Dioxide 23.8, Anion Gap 11, BUN 8, Creatinine 0.80, Estim Creat Clear Calc 108.56, Est GFR (MDRD) Non-Af 88, B UN/Creatinine Ratio 9.8 L, Glucose 107 H, Calcium 8.6 10/01/24 11:47: POC Glucose 147 H Micro: Microbiology 09/27/24 17:04 Urine, Clean Catch Urine Culture - Final Pseudomonas aeruginosa Radiography Diagnostic Testing: Radiology Impression Hepatobiliary Scan Nuclear Medicine 10/01/24 08:46 IMPRESSION: Normal hepatobiliary scan with ejection fraction of 85%. Reading Location: [facility] Physical Exam Const alert, oriented x3, no apparent distress and well nourished; Negative for average body habitus or healthy appearing Constitutional Narrative: Super morbidly obese, white female, lying in bed in right side-lying complaining of abdominal pain now in the suprapubic region, mother is at bedside, nursing at bedside, patient is cooperative with exam HEENT normocephalic, head/scalp atraumatic, hearing grossly normal bilaterally and moist oral mucous membranes HEENT Narrative: Mallampati 4, no thrush Resp normal respiratory effort, normal air movement, no retractions, no use of accessory muscles and clear to auscultation bilaterally Resp Narrative: Diminished and exam limited by body habitus Auscultation: Negative for rales, rhonchi or wheezes Cardio regular rate, regular rhythm, S1 normal heart sound, S2 normal heart sound, no murmurs, no rub, no gallops, no clicks and peripheral pulses 2+ throughout GI normal to inspection, nondistended, normoactive bowel sounds and soft to palpation; Negative for non-tender GI Narrative: No right upper quadrant pain, left upper quadrant pain on exam with very light touch in the morning and then afternoon that had resolved and she was complaining of suprapubic pain/central lower abdominal pain with light touch Extremity Extremity Narrative: Bilateral lower extremity chronic edema, no cyanosis or clubbing Neuro moves all extremities and no focal motor deficits Speech: speech normal Psych Psych Narrative: Affect is flat Mood & Affect: anxious Assessment & Plan Assessment/Plan (1) Pain and swelling of right upper extremity: (2) Abdominal pain: (3) Ascites: (4) Anticoagulated on apixaban: (5) Leukocytosis: PLAN: Plan Abdominal pain -S/P paracentesis about 7000 cc -Still some residual fluid on ultrasound -CT is pending -No bowel movements documented so may be constipation both assessed with CT as patient's history is poor - HIDA scan was unremarkable therefore gallbladder disease ruled out -Pain seems to be diffuse and migratory -Repeat hepatic enzymes today -Had lipase on admission was unremarkable and symptoms are not consistent with pancreatitis -Stat CT of the abdomen pelvis with oral and IV contrast -bentyl - Continue fat restricted diet for now Lactic acidosis - Will recheck in a.m. depending on findings Leukocytosis - Remains mildly elevated -Urine culture is not consistent with infection and patient without any significant urinary symptoms -Discontinue antibiotics and monitor off Chronic anemia - Hemoglobin is stable and appears to be close to baseline--> patient with mildly hemoconcentrated on admission - No signs of acute blood loss - Repeat CBC in a.m. Hypothyroidism - Poorly controlled - Was recently hospitalized with myxedema coma in early July due to medication noncompliance - Will continue oral Synthroid - Will need repeat TSH in 2 to 3 weeks after discharge Acute on chronic debility - Patient uses wheeled walker at the nursing facility and has decreased mobility - Continue PT/OT DVT/PE - Patient is on therapeutic Lovenox for now in preparation should she require any procedures for the above - Will restart Eliquis at the time of discharge -Diagnosed on 08/28/2024 Right eye infection Thin continue home eyedrops DAVY - PRN BIPAP COPD/allergic rhinitis - Continue home inhalers - As needed albuterol History of migraine - Hold medications for now and restart if needed History of stroke - No longer on aspirin due to anticoagulation with apixaban - Continue secondary risk factor modification DM-2 - Patient well-controlled with sliding scale - Subcu insulin AC and at bedtime now that has p.o. diet - cardiac/carb controlled diet Essential hypertension/hyperlipidemia - Continue home antihypertensives and statin Diabetic neuropathy - Continue home gabapentin Gastroparesis - Patient had previously been on Reglan - Hold for now as it is not in her MAR currently Depression/anxiety - Continue home trazodone and citalopram Morbid obesity - BMI is 49.6 - Complicates treatment, prognosis, outcomes - highly recommend weight loss DVT prophylaxis - Apixaban on hold in case procedure is required - Continue therapeutic Lovenox CODE STATUS - DNR CCA with no intubation Charges/Coding Visit Charges Inpatient E&M: 92502 Subs Hosp L2
[2024-10-01 15:09] LABS: Pathologist Comment/Body Fluid Reviewed
[2024-10-01 17:09] LABS: AST(SGOT) 36 U/L (<=31); Alanine Aminotransfer ALT/SGPT 11 U/L (<=34); Albumin, Serum 2.8 g/dL (3.5-5.0); Alkaline Phosphatase 135 U/L (35-104); Bilirubin, Direct < 0.08 mg/dL (0.00-0.30); Globulin 2.9 g/dL (2.2-4.2)
--- NOTE | 2024-10-01 18:59 | PCM.HOSP.N ---
Hospitalist Note CT of the abdomen pelvis with IV and p.o. 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 Discussed with the patient and she is aware that we are concerned she has some kind of a malignancy. Primary is not clear at this time. Will obtain a CEA, CA 19-9, CEA a 125. Paracentesis ordered with cytology sent as it was not sent with the last 1. Also ordered a biopsy of the liver if possible. Will discuss with Dr. Vieira tomorrow. Will hold MostLikely
[2024-10-01] MEDS: 0.9% Saline Lock 10 ML Syringe IV (21:59)
[2024-10-02] VITALS (16 sets, daily range): BP systolic 103–151; BP diastolic 69–100; PULSE 89–108; RESP 16–18; TEMP 36.2–37.1; O2SAT 92–97
--- NOTE | 2024-10-02 | FLU_PTH ---
PATIENT: NELLAMay LOC: RASHID U#:[id number] AGE/SX: 54/F ROOM: [facility] [place] RE09/29/[address]: Dr. Daria Knight MD : 1970 BED: 1 DIS: 10/10/2024 SPEC #: [id number] RECD: 10/02/24 14:01 STATUS: KELLY REQ #: [id number] IQRA: 10/02/24 00:[address]: Daria Knight DEPT: CYTOLOGY RECD BY: Logan Barrientos ENTERED: 10/03/24 09:23 SP TYPE: Fluid OTHR DR: DO Nasreen Cates MD Dr. Kathryn Lee, DO Dr. Steven A Wanek, MD Tissues: A - PARACENTESIS FLUID Procedures: Special Stain Group II Surgery Specimen Level IV Cytospin Fluid HEADER OPERATION: Paracentesis PRE-OP DIAGNOSIS: Ascites TISSUE SUBMITTED: A- Paracentesis fluid for cytology DIAGNOSIS CYTOLOGY A. Ascitic fluid, paracentesis (cytospin, cellblock): - Atypical cells suspicious for malignancy. CYTOLOGY STUDY Slides are reviewed. CYTOLOGY GROSS A. Received is 90 ml of yellow-cloudy fluid labeled with the patient's name and and designated per the requisition as Paracentesis fluid. Submitted for cytology and cell block preparation. Mr 10/03/2024 CPT: 48686 ,78681
--- NOTE | 2024-10-02 | LIVB_PTH ---
PATIENT: NELLAMay LOC: 3 U#:[id number] AGE/SX: 54/F ROOM: [facility] [place] RE09/29/[address]: Dr. Daria Knight MD : 1970 BED: 1 DIS: 10/10/2024 SPEC #: [id number] RECD: 10/02/24 14:30 STATUS: KELLY REMichael #: [id number] IQRA: 10/02/24 00:[address]: Elda Mason DEPT: SURGICAL PATHOLOGY RECD BY: Logan Barrientos ENTERED: 10/02/24 15:06 SP TYPE: LIVER BX OTHR DR: DO Nasreen Cates MD Dr. Steven A Wanek, MD Tissues: A - Liver, NOS Procedures: FNA Specimen Adequacy Immunohistochemical Stains Surgery Specimen Level V IHC Stain ADDITIONAL HEADER OPERATION: Liver biopsy PRE-OP DIAGNOSIS: Liver mass - left lobe TISSUE SUBMITTED: A- Liver biopsy MICROSCOPIC DIAGNOSIS A. Liver, left lobe, core biopsy: - Malignant neoplasm. - Further characterization with IHC is pending and the findings will be reported in an addendum. COMMENT The specimen is evaluated at the time of biopsy by Dr. Santiago. Immediate Evaluation = 1. Adequate. 2. Adequate. MICROSCOPIC DESCRIPTION Slides are reviewed. GROSS DESCRIPTION A. Received in formalin labeled with the patient's name and date of are 3 white-brown tissue cores, 1.9 cm to 2.3 cm in length by 0.1 cm in diameter. Entirely submitted in 2 cassettes as follows: A1: 2 tissue coresA2: 1 tissue core VA 10/02/2024 CPT:95279,43008,[id number] ADDENDUM ADDENDUM ADDENDUM ADDENDUM ADDENDUM ADDENDUM ADDENDUM ADDENDUM ADDENDUM ADDENDUM ADDENDUM ADDENDUM ADDENDUM ADDENDUM ADDENDUM ADDENDUM ADDENDUM ADDENDUM ADDENDUM ADDENDUM ADDENDUM ADDENDUM ADDENDUM ADDENDUM ADDENDUM ADDENDUM ADDENDUM ADDENDUM ADDENDUM ADDENDUM ADDENDUM ADDENDUM ADDENDUM 10/17/2024 14:08 ADDENDUM 10/17/2024 14:08 ADDENDUM 10/17/2024 14:08 ADDENDUM 10/19/2024 17:52 ADDENDUM 10/17/2024 14:08 ADDENDUM 10/17/2024 14:08 IHC performed. The tumor cells are: Positive: pankeratin, CK19, CK20 (focal), CDX2, Villin Negative: CK7, Glypican-3, Hepatocyte, NANCIE-3, PAX8, ER. These findings suggest a pancreaticobiliary origin (including intrahepatic cholangiocarcinoma), as well as other lower gastrointestinal tract sites. Correlation with clinical and imaging findings is essential. Additional stains are pending to rule out possible pulmonary origin as well as neuroendocrine differentiation and the findings will be reported in a subsequent addendum. Selected slides/images were reviewed in intradepartmental consultation by Dr Saurabh Locke (GI pathology division, [facility] All matched controls reacted appropriately. These tests were developed and their performance characteristics determined by [facility]. They may not have been cleared or approved by the U.S. Food and Drug Administration. The FDA has determined that such clearance or approval is not necessary.? The above immunohistochemical/dualISH?markers are reviewed by the Pathologist All controls show appropriate reactivity. (CK19, Glypican-3) All immunohistochemistry, in situ hybridization, and histochemical tests were developed by and are performed at the [facility], [address] [place] [address]. All Immunofluorescent (IF)?tests were developed by and are performed at the [facility], [address] [place] [id number]. All tests reported here, except those addressing HER2 overexpression as a predictive marker, have not been cleared by or approved by the US Food and Drug Administration (FDA). The laboratory is regulated under CLIA as qualified to perform high-complexity testing. The tests are used for clinical purposes. They should not be regarded as investigational or for research This addendum is to report the IHC and special stains: Positive: pankeratin, CK20 (focal), CK19, CDX2, Villin, Chromogranin, Synaptophysin, Ki67 (50%). Negative: CK7, Glypican-3, Hepatocyte, GATA3, PAX8, ER, TTF-1. Mucicarmine special stain is negative for intracellular mucin. 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 The positive CK19, CDX2, and Villin support a lower GI origin including pancreaticobiliary sites. Clinical and imaging correlation is essential. Selected slides/images were reviewed in intradepartmental consultation by Aleax Almanza, and Kenroy Sheridan (GI pathology division, [facility]). All matched controls reacted appropriately. These tests were developed and their performance characteristics determined by [facility]. They may not have been cleared or approved by the U.S. Food and Drug Administration. The FDA has determined that such clearance or approval is not necessary.? The above immunohistochemical?markers and/or special stains have been reviewed by the Pathologist.
[2024-10-02] MEDS: 0.9% Saline Lock 10 ML Syringe IV (04:44)
[2024-10-02] MEDS: Meropenem 500 MG in 0.9% Normal Saline (50mL MB+) 50 ML 100 MG IV ×3 (04:46→22:22)
[2024-10-02] MEDS: Lidocaine 2% Viscous15 ML UDC 15 ML PO (05:06)
--- NOTE | 2024-10-02 06:56 | PN.SURG_ITS ---
Subjective Subjective Patient evaluated resting comfortably in bed. She notes pain this morning in her left upper quadrant and back pain. She denies any nausea, vomiting. She notes feeling sleepy this morning. Objective Data Objective Data Vital Signs: Vital Signs Temp Pulse Resp BP Pulse Ox O2 Del Method O2 Flow Rate 97.8 F 100 18 131/95 H 93 Room Air 2 10/02/24 05:11 10/02/24 05:11 10/02/24 05:11 10/02/24 05:11 10/02/24 05:11 10/02/24 05:11 10/01/24 09:32 FiO2 21 10/01/24 22:54 Oxygen Flow Rate (L/min) 2 Oxygen Delivery Method Room Air Weight: 290 lb 9.108 oz Body Mass Index (BMI) 49.6 Intake & Output: Intake and Output for Last 24 Hours 09/30/24 10/01/24 10/02/24 23:59 23:59 23:59 Intake Total 1278.25 / 1278.25 850 / 850 50 / 50 Output Total 6970 / 6970 Balance 1278.25 / 1278.25 -6120 / -6120 50 / 50 Lab / Micro Data 10/02/24 06:09 10/02/24 06:09 Labs: Laboratory Results - last 24 hr 09/27/24 10:33: Fluid Albumin 1.9 09/28/24 10:33: Fl Pathologist Comment Reviewed 09/28/24 11:40: POC Glucose 100 09/28/24 11:49: POC Glucose 134 H 10/01/24 06:20: Sodium 136, Potassium 4.5, Chloride 102, Carbon Dioxide 23.8, Anion Gap 11, BUN 8, Creatinine 0.80, Estim Creat Clear Calc 108.56, Est GFR (MDRD) Non-Af 88, BUN/Creatinine Ratio 9.8 L, Glucose 107 H, Calcium 8.6 10/01/24 11:47: POC Glucose 147 H 10/01/24 15:52: Total Bilirubin 0.36, Direct Bilirubin < 0.08, AST 36 H, ALT 11, Alkaline Phosphatase 135 H, Total Protein 5.7 L, Albumin 2.8 L, Globulin 2.9 10/01/24 16:30: POC Glucose 122 H 10/01/24 22:12: POC Glucose 111 H 10/02/24 06:11: POC Glucose 104 Micro: Microbiology 09/27/24 17:04 Urine, Clean Catch Urine Culture - Final Pseudomonas aeruginosa Radiography Diagnostic Testing: Radiology Impression Hepatobiliary Scan Nuclear Medicine 10/01/24 08:46 IMPRESSION: Normal hepatobiliary scan with ejection fraction of 85%. 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 Hepatomegaly. Heterogeneous enhancing masses in the right lobe of the liver as described. Sludge seen within the gallbladder lumen. Reading Location: [facility] Physical Exam GI GI Narrative: Abdomen- left upper quadrant tenderness with palpation. Assessment & Plan Assessment/Plan (1) Abdominal pain: QUALIFIERS: Abdominal location: left upper quadrant Qualified Code(s): R10.12 - Left upper quadrant pain PLAN: I am following this patient in conjunction with Dr. Washington. He will independently evaluate this patient. Labs reviewed Patient to go for additional testing and biopsy today to investigate liver masses and ascites Patient's symptoms very unlikely related to gallbladder We will sign off at this time. Please reach out if our service is needed in the future Thank you for allowing us to care for this patient Charges/Coding Visit Charges Inpatient E&M: 93866 Subs Hosp L2
--- NOTE | 2024-10-02 07:00 | US_ITS ---
PROCEDURE: PARACENTESIS WITH US 10/02/2024 REASON FOR EXAM: ASCITES TECHNIQUE: PARACENTESIS WITH US FINDINGS: Procedure: Following informed consent, using standard sterile technique, an ultrasound- guided right abdominal paracentesis was performed. 1% lidocaine local anesthesia was followed by placement of a 5 Somali catheter into the peritoneal fluid collection. Approximately 5520 mL yellow clear fluid was successfully removed. A portion was sent to the laboratory for evaluation. No complication was encountered, the patient left the department in good condition without complaint. US/Paracentesis with US IMPRESSION: Successful therapeutic and diagnostic ultrasound-guided abdominal paracentesis. Laboratory results pending. Reading Location: [place] [address]
[2024-10-02] MEDS: Budesonide Respules 0.5 MG/2 ML AMPUL.NEB. INHALATION ×2 (07:11→19:22)
[2024-10-02] MEDS: Albuterol 2.5 MG/3 ML VIAL.NEB. INHALATION ×3 (07:11→19:22)
[2024-10-02 07:26] LABS: Hematocrit 32.0 % (37-47); Hemoglobin 10.6 g/dL (12.0-15.0); Mean Corp Hgb Conc 33.1 g/dL (32-36); Mean Corpuscular Volume 93.0 fL (81-99); Mean Platelet Vol. 9.8 fl (6.2-12.0); Platelet Count 545 K/mm3 (150-450); RBC Distribution Width CV 17.2 % (11.6-14.6); RBC Distribution Width SD 58.4 fl (35.1-43.9); Red Blood Count 3.44 M/mm3 (4.2-5.4); White Blood Count 12.6 K/mm3 (4.4-11.0)
--- NOTE | 2024-10-02 07:33 | PCM.PN.HOSP ---
Reason for Visit Chief Complaint: Persistent abdominal pain with distention and right arm swelling Subjective Subjective Patient states she is tired as she did not sleep well. She typically has her days and nights mixed up. Plan is for paracentesis and hopefully CT-guided biopsy later today. Lovenox remains on hold and will start tomorrow morning. Patient states that her pain is overall well-controlled with current regimen. Objective Data Objective Data Vital Signs: Vital Signs Temp Pulse Resp BP Pulse Ox O2 Del Method O2 Flow Rate 97.8 F 100 18 131/95 H 93 Room Air 2 10/02/24 05:11 10/02/24 05:11 10/02/24 05:11 10/02/24 05:11 10/02/24 05:11 10/02/24 05:11 10/01/24 09:32 FiO2 21 10/01/24 22:54 Oxygen Flow Rate (L/min) 2 Oxygen Delivery Method Room Air Weight: 131.8 kg Body Mass Index (BMI) 49.6 Intake & Output: Intake and Output for Last 24 Hours 09/30/24 10/01/24 10/02/24 23:59 23:59 23:59 Intake Total 1278.25 / 1278.25 850 / 850 50 / 50 Output Total 6970 / 6970 Balance 1278.25 / 1278.25 -6120 / -6120 50 / 50 Lab / Micro Data 10/02/24 06:09 10/02/24 06:09 Labs: Laboratory Results - last 24 hr 09/27/24 10:33: Fluid Albumin 1.9 09/28/24 10:33: Fl Pathologist Comment Reviewed 09/28/24 11:40: POC Glucose 100 09/28/24 11:49: POC Glucose 134 H 10/01/24 11:47: POC Glucose 147 H 10/01/24 15:52: Total Bilirubin 0.36, Direct Bilirubin < 0.08, AST 36 H, ALT 11, Alkaline Phosphatase 135 H, Total Protein 5.7 L, Albumin 2.8 L, Globulin 2.9 10/01/24 16:30: POC Glucose 122 H 10/01/24 22:12: POC Glucose 111 H 10/02/24 06:09: WBC 12.6 H, RBC 3.44 L, Hgb 10.6 L, Hct 32.0 L, MCV 93.0, MCH 30.8, MCHC 33.1, RDW Std Deviation 58.4 H, RDW Coeff of Alfredo 17.2 H, Plt Count 545 H, MPV 9.8 10/02/24 06:11: POC Glucose 104 Micro: Microbiology 09/27/24 17:04 Urine, Clean Catch Urine Culture - Final Pseudomonas aeruginosa Radiography Diagnostic Testing: Radiology Impression Hepatobiliary Scan Nuclear Medicine 10/01/24 08:46 IMPRESSION: Normal hepatobiliary scan with ejection fraction of 85%. Reading Location: [id number] Abdomen/Pelvis CT 10/01/24 14:23 IMPRESSION: Diffuse ascites and findings suggestive of omental metastasis. Hepatomegaly. Heterogeneous enhancing masses in the right lobe of the liver as described. Sludge seen within the gallbladder lumen. Reading Location: [facility] Physical Exam Const alert, oriented x3, no apparent distress and well nourished; Negative for average body habitus or healthy appearing Constitutional Narrative: Super morbidly obese, white female, lying in bed in right side-lying sleeping but awakens easily, appears more comfortable than yesterday, nontoxic General Appearance: cooperative HEENT normocephalic, head/scalp atraumatic, hearing grossly normal bilaterally and moist oral mucous membranes HEENT Narrative: Mallampati 4, no thrush Resp normal respiratory effort, normal air movement, no retractions, no use of accessory muscles and clear to auscultation bilaterally Resp Narrative: Diminished and exam limited by body habitus Auscultation: Negative for rales, rhonchi or wheezes Cardio regular rate, regular rhythm, S1 normal heart sound, S2 normal heart sound, no murmurs, no rub, no gallops, no clicks and peripheral pulses 2+ throughout GI normal to inspection, nondistended, normoactive bowel sounds and soft to palpation; Negative for non-tender GI Narrative: Abdominal pain predominantly in the lower abdominal area. Exam is difficult due to body habitus with regards to fluid wave or organomegaly Extremity Extremity Narrative: Bilateral lower extremity chronic edema, no cyanosis or clubbing Neuro oriented x3, moves all extremities and no focal motor deficits Speech: speech normal Psych mental status grossly normal and affect normal Psych Narrative: Affect is flat Assessment & Plan Assessment/Plan (1) Pain and swelling of right upper extremity: (2) Abdominal pain: QUALIFIERS: Abdominal location: left upper quadrant Qualified Code(s): R10.12 - Left upper quadrant pain (3) Ascites: (4) Anticoagulated on apixaban: (5) Leukocytosis: PLAN: Plan Abdominal pain/abnormal CT abdomen with p.o. and IV contrast - Will continue antibiotics for now - CT with and without contrast showed possible omental metastasis and liver malignancy - Will repeat paracentesis and try to obtain a CT-guided biopsy of the liver today - Lovenox on hold last night and this morning with plans to restart tomorrow if hemoglobin stable - Tumor markers are pending - fluid studies and cytology were sent for this paracentesis as they were not sent on the last paracentesis - If metastatic disease is present will need to discuss further with patient and discussed overall plans with possible hospice consultation if patient does not want to pursue aggressive treatment Leukocytosis - Remains mildly elevated -Urine culture is not consistent with infection and patient without any significant urinary symptoms -Discontinue antibiotics and monitor off Chronic anemia - Hemoglobin is stable and appears to be close to baseline--> patient with mildly hemoconcentrated on admission - No signs of acute blood loss - Repeat CBC in a.m. Thrombocytosis - Suspect related to the above - Stably elevated for now - Monitor Hypothyroidism - Poorly controlled - Was recently hospitalized with myxedema coma in early July due to medication noncompliance - Will continue oral Synthroid - Will need repeat TSH in 2 to 3 weeks after discharge Acute on chronic debility - Patient uses wheeled walker at the nursing facility and has decreased mobility - Continue PT/OT DVT/PE - Patient is on therapeutic Lovenox for now in preparation should she require any procedures for the above -Lovenox held last night and this morning in preparation for procedures with plans to restart tomorrow morning if hemoglobin stable postprocedure - Will restart Eliquis at the time of discharge -Diagnosed on 08/28/2024 Right eye infection Thin continue home eyedrops DAVY - PRN BIPAP if patient will comply COPD/allergic rhinitis - Continue home inhalers - As needed albuterol History of migraine - Hold medications for now and restart if needed History of stroke - No longer on aspirin due to anticoagulation with apixaban - Continue secondary risk factor modification DM-2 - Patient well-controlled with sliding scale - Subcu insulin AC and at bedtime now that has p.o. diet - cardiac/carb controlled diet Essential hypertension/hyperlipidemia - Continue home antihypertensives and statin Diabetic neuropathy - Continue home gabapentin Gastroparesis - Patient had previously been on Reglan - Hold for now as it is not in her MAR currently Depression/anxiety - Continue home trazodone and citalopram Morbid obesity - BMI is 49.6 - Complicates treatment, prognosis, outcomes - highly recommend weight loss DVT prophylaxis - Apixaban on hold in case procedure is required - Continue therapeutic Lovenox CODE STATUS - DNR CCA with no intubation Charges/Coding Visit Charges Inpatient E&M: 31641 Subs Hosp L2
[2024-10-02 07:41] LABS: Anion Gap 13 (5-15); BUN 9 mg/dL (4-19); BUN/Creat Ratio 10.0 RATIO (10-20); Calcium,Total 8.7 mg/dL (7.6-11.0); Carbon Dioxide 23.6 mmol/L (21.0-32.0); Chloride 101 mmol/L (98-108); Estimated Creatinine Clearance 97.58 ml/min (50-250); Glucose 98 mg/dL (70-99); Potassium 4.8 mmol/L (3.3-5.1)
--- NOTE | 2024-10-02 08:00 | US_ITS ---
PROCEDURE: LIVER BIOPSY ULTRASOUND 10/02/2024 REASON FOR EXAM: LIVER MASS COMPARISON: CT exam of 10/01/2024 and ultrasound study of 09/29/2024. PROCEDURE: The medial segment left hepatic hypoechoic mass was measured on the current exam at 6.3 x 4.9 x 2.3 cm. Following informed consent, and using standard sterile technique, a left hepatic hypoechoic mass ultrasound guided core biopsy was performed. 2% lidocaine local anesthesia was followed by placement of an 18 gauge 15 cm SIGFOXt core biopsy system. 3 samples were then obtained. No complication was encountered, in the patient left the department in good condition without significant complaint. US/Liver Biopsy Ultrasound IMPRESSION: Successful targeted left hepatic ultrasound guided core biopsy. Pathology resu lts pending. Reading Location: [place] [address]
[2024-10-02] MEDS: Lidocaine 2% (20 ml mdv) 20 ML Vial INFILT ×2 (13:45→14:30)
[2024-10-02 14:36] LABS: Body Fluid Mononuclear WBC # 0.735 10^3/uL; Body Fluid Mononuclear WBC % 98.1 %; Body Fluid Polynuclear WBC # 0.014 10^3/uL; Body Fluid Polynuclear WBC % 1.9 %; White Blood Count/Body Fluid 0.749 10^3/uL
[2024-10-02 14:52] LABS: Auto B Fluid Analyzer BKGD Ct COUNTS W/IN LIMITS (W/IN LIMITS)
[2024-10-02 14:53] LABS: Color/Body Fluid LT YEL; Source- Body Fluid PARACENTESIS
[2024-10-02 14:54] LABS: Appearance/Body Fluid SL CLDY
[2024-10-02 15:32] LABS: Glucose, Body Fluid 89 mg/dL (Not Establ.)
[2024-10-02 16:00] LABS: Red Cell Count/Body Fluid 712 /mm3
[2024-10-02 22:05] LABS: Neutrophil (Segs) 8 %
[2024-10-02 22:06] LABS: Body Fluid QC Type(s) BF3Q
[2024-10-02] MEDS: Polyethylene Glycol 3350 17 GM PACKET PO (22:19)
[2024-10-03] VITALS (9 sets, daily range): BP systolic 100–139; BP diastolic 60–72; PULSE 84–99; RESP 14–20; TEMP 36.6–36.8; O2SAT 94–99
[2024-10-03] MEDS: 0.9% Saline Lock 10 ML Syringe IV ×2 (06:25→23:20)
[2024-10-03] MEDS: Meropenem 500 MG in 0.9% Normal Saline (50mL MB+) 50 ML 100 MG IV ×2 (06:25→23:20)
[2024-10-03] MEDS: Albuterol 2.5 MG/3 ML VIAL.NEB. INHALATION ×3 (07:14→19:18)
[2024-10-03] MEDS: Budesonide Respules 0.5 MG/2 ML AMPUL.NEB. INHALATION ×2 (07:14→19:18)
[2024-10-03 07:53] LABS: Hematocrit 37.8 % (37-47); Hemoglobin 11.5 g/dL (12.0-15.0); Mean Corp Hgb Conc 30.4 g/dL (32-36); Mean Corpuscular Volume 99.0 fL (81-99); Mean Platelet Vol. 9.4 fl (6.2-12.0); Platelet Count 475 K/mm3 (150-450); RBC Distribution Width CV 17.6 % (11.6-14.6); RBC Distribution Width SD 63.7 fl (35.1-43.9); Red Blood Count 3.82 M/mm3 (4.2-5.4); White Blood Count 13.8 K/mm3 (4.4-11.0)
[2024-10-03 08:09] LABS: Carcinoembryonic Antigen 5.4 ng/mL (0.0-4.7)
[2024-10-03 08:32] LABS: Anion Gap 11 (5-15); BUN 10 mg/dL (4-19); BUN/Creat Ratio 10.9 RATIO (10-20); Calcium,Total 8.4 mg/dL (7.6-11.0); Carbon Dioxide 22.0 mmol/L (21.0-32.0); Chloride 99 mmol/L (98-108); Estimated Creatinine Clearance 95.44 ml/min (50-250); Glucose 111 mg/dL (70-99); Potassium 5.2 mmol/L (3.3-5.1)
[2024-10-03] MEDS: Polyethylene Glycol 3350 17 GM PACKET PO ×2 (10:27→23:21)
[2024-10-03] MEDS: Fluticasone 0.05% 1 SPRAY NASAL.SRY 2 SPRAY NASAL (10:27)
--- NOTE | 2024-10-03 13:23 | PN_ITS ---
Subjective Subjective Patient seen and examined with her nurse by her bedside. She complained of some generalized pain. She denied any shortness of breath, fever, chills or any other symptoms. Review of systems is otherwise negative. She had a liver biopsy results of which are pending. She has also had paracentesis x 2. Review of systems is otherwis negative. Objective Data Objective Data Vital Signs: Vital Signs Temp Pulse Resp BP Pulse Ox O2 Del Method O2 Flow Rate 98.1 F 99 18 124/60 H 99 Room Air 2 10/03/24 09:00 10/03/24 09:00 10/03/24 09:00 10/03/24 09:00 10/03/24 03:39 10/03/24 09:00 10/01/24 09:32 FiO2 21 10/02/24 21:40 Oxygen Flow Rate (L/min) 2 Oxygen Delivery Method Room Air Weight: 290 lb 9.108 oz Body Mass Index (BMI) 49.6 Intake & Output: Intake and Output for Last 24 Hours 10/01/24 10/02/24 10/03/24 23:59 23:59 23:59 Intake Total 850 / 850 650 / 650 100 / 100 Output Total 6970 / 6970 5520 / 5520 Balance -6120 / -6120 -4870 / -4870 100 / 100 Lab / Micro Data 10/03/24 07:28 10/03/24 07:28 Labs: Laboratory Results - last 24 hr 10/01/24 13:55: Fluid Glucose 89, Fluid Total Protein 2.5, Fluid LDH 218 10/01/24 21:02: Tumor Marker AFP 2.5, Carcinoembryonic Ag 5.4 H, CA 19-9 Antigen 104 H, CA 125 Antigen 188.0 H 10/02/24 13:55: Fluid Source PARACENTESIS, Fluid Color LT YEL, Fluid Appearance SL CLDY, Fluid WBC 0.749, Fluid RBC 712, Fluid Tot Cell Count 1.004 H, Fld Polynuclear WBCs # 0.014, Fld Polynuclear WBCs % 1.9, Fluid Mononuclear WBCs 0.735, Fld Mononuclear WBCs % 98.1, Fluid Neutrophils 8, Fluid Lymphocytes 18, Fluid Monocytes 8, Fluid Macrophages 58, Fld Mesothelial Cells 8, Fl Pathologist Comment May follow, Fluid Comment 2 SEE COMMENT 10/02/24 16:59: POC Glucose 134 H 10/02/24 22:17: POC Glucose 104 10/03/24 06:27: POC Glucose 112 H 10/03/24 07:28: WBC 13.8 H, RBC 3.82 L, Hgb 11.5 L, Hct 37.8, MCV 99.0 D, MCH 30.1, MCHC 30.4 L D, RDW Std Deviation 63.7 H, RDW Coeff of Alfredo 17.6 H, Plt Count 475 H, MPV 9.4, Sodium 133, Potassium 5.2 H, Chloride 99, Carbon Dioxide 22.0, Anion Gap 11, BUN 10, Creatinine 0.91, Estim Creat Clear Calc 95.44, Est GFR (MDRD) Non-Af 75, BUN/Creatinine Ratio 10.9, Glucose 111 H, Calcium 8.4 10/03/24 12:34: POC Glucose 124 H Micro: Microbiology 09/27/24 17:04 Urine, Clean Catch Urine Culture - Final Pseudomonas aeruginosa Radiography Diagnostic Testing: Radiology Impression Paracentesis Ultrasound 10/02/24 07:00 IMPRESSION: Successful therapeutic and diagnostic ultrasound-guided abdominal paracentesis. Laboratory results pending. Reading Location: [place] [address] Liver Biopsy Ultrasound 10/02/24 08:00 IMPRESSION: Successful targeted left hepatic ultrasound guided core biopsy. Pathology results pending. Reading Location: [place] [address] Physical Exam Const alert Constitutional Narrative: class III obesity Orientation / Consciousness: lethargic HEENT normocephalic, head/scalp atraumatic and moist oral mucous membranes Neck no lymphadenopathy and supple Lymph Lymphatic: no lymphedema noted Resp Resp Narrative: mildly diminished breath sounds bibasally, no wheezes or crackles. On room air. Cardio regular rate, regular rhythm, S1 normal heart sound, S2 normal heart sound and no murmurs GI GI Narrative: obese abdomen, dressing over RUQ (liver area), positive fluid thrill, no tenderness or rebound tenderness. Difficult to palpate organomegaly due to abdominal distension and obesity. Extremity normal capillary refill, no clubbing, cyanosis or edema and no calf tenderness General Extremity: no tenderness to palpation of joints or extremities Skin General Skin Exam: no breakdown Neuro no focal motor deficits Motor Exam: general weakness Psych thought process normal and cooperative Mood & Affect: flat affect Assessment & Plan Assessment/Plan (1) Ascites: PLAN: Plan #Ascites with possible omental metastasis and liver mass, concerning for malignancy * CT of the abdomen with and without contrast showed possible omental metastasis and liver malignancy * has had paracentesis x 2; had paracentesis yesterday and also had CT guided biopsy of the liver yesterday * fluid studies and cytology pending. * tumor markers also pending * will resume lovenox today. * further management dependent on pathology findings * #Leucocytosis:Urine cultures grew Pseudomonas. She is on meropenem. wbc is 13.8 today. Today is Day 6 of meropenem. Will dc tomorrow after a 7 day course. #Anemia: this is chronic. Hb seems to be at baseline. Will monitor. #Hyperkalemia: K is 5.2 today. Will give kayexalate and monitor potassium #Thrombocytosis: stable. Will monitor #Hypothyroidism: on synthroid # History of DVT and PE: On therapeutic Lovenox. Will resume Lovenox today after it was held yesterday in preparation for the paracentesis and liver biopsy. #Debility and weakness PT OT on board. Uses wheeled walker at her longterm #Right eye infection: Has been on eyedrops, continue. #History of DAVY: On BiPAP as needed #Type 2 diabetes mellitus with neuropathy: On insulin sliding scale. Checks ACHS. On gabapentin #Hyperlipidemia: On statin #Benign essential hypertension: Depression and anxiety: On trazodone and citalopram #COPD: not in exacerbation. Breathing treatment with bronchodilators. Class III obesity: BMI is 49.6. Complicates acute care, expected recovery and prognosis. DVT prophylaxis: on therapeutic lovenox. Charges/Coding Visit Charges Inpatient E&M: 26900 Subs Hosp L2
[2024-10-03] MEDS: Meropenem 500 MG in 0.9% Normal Saline (50mL MB+) 50 ML 700 MG IV (14:13)
[2024-10-03 14:53] LABS: Pathologist Comment/Body Fluid Reviewed
[2024-10-04] VITALS (10 sets, daily range): BP systolic 106–143; BP diastolic 60–94; PULSE 87–102; RESP 16–18; TEMP 35.7–36.7; O2SAT 90–96
--- NOTE | 2024-10-04 01:35 | PCM.HOSP.N ---
Hospitalist Note Patient with fall, landed on her knees, no LOC, no marked trauma or pain complaint currently. Will obtain plain film BL knees.
--- NOTE | 2024-10-04 01:46 | RAD_ITS ---
PROCEDURE: KNEE 1 OR 2 VIEWS 10/04/2024 REASON FOR EXAM: FALL TECHNIQUE: KNEE 1 OR 2 VIEWS COMPARISON: 09/16/2023 FINDINGS: No fracture, dislocation, or joint effusion. Mild medial femorotibial joint space narrowing. RAD/Knee 1 or 2 Views IMPRESSION: No acute findings Reading Location: [place] [address]
--- NOTE | 2024-10-04 01:46 | RAD_ITS ---
PROCEDURE: KNEE 1 OR 2 VIEWS 10/04/2024 REASON FOR EXAM: FALL TECHNIQUE: KNEE 1 OR 2 VIEWS COMPARISON: No FINDINGS: No fracture, dislocation, or joint effusion. RAD/Knee 1 or 2 Views IMPRESSION: No injury noted. Reading Location: [place] [address]
--- NOTE | 2024-10-04 06:00 | NURSING ---
0055- Patient found at bedside with knees on floor kneeling on bed, patient shouting for help upon arrival to room. When asking patient what happened she replied that she has been calling and yelling for help for awhile and needed to go to the bathroom. Call light within reach of bed as well as 3 railings up on bed. Patient denies injury at the time of finding. Assisted x 3 person to sitting position on side of bed, patient states that she was trying to go to the bathroom- Stool present on bedsheets. Patient denies any pain to lower extremities and denies hitting head at this time. No open or red areas noted. Vitals WNL, assisted to bathroom. Patient cognition within baseline prior to finding on floor. Dr. Saleem notified.
[2024-10-04] MEDS: Meropenem 500 MG in 0.9% Normal Saline (50mL MB+) 50 ML 100 MG IV ×3 (06:27→21:20)
[2024-10-04] MEDS: 0.9% Normal Saline (250mL Bag) 250 ML 15 ML IV (06:31)
--- NOTE | 2024-10-04 06:54 | NURSING ---
Patient mother Nadeen notified of fall during the night. Voiced understanding with no concerns at this time.
[2024-10-04] MEDS: Budesonide Respules 0.5 MG/2 ML AMPUL.NEB. INHALATION (07:02)
[2024-10-04] MEDS: Albuterol 2.5 MG/3 ML VIAL.NEB. INHALATION ×2 (07:02→13:10)
[2024-10-04] MEDS: Polyethylene Glycol 3350 17 GM PACKET PO (08:29)
--- NOTE | 2024-10-04 08:34 | NURSING ---
will text md and request midline or similar.
[2024-10-04 09:42] LABS: Anion Gap 10 (5-15); BUN 10 mg/dL (4-19); BUN/Creat Ratio 10.0 RATIO (10-20); Calcium,Total 8.1 mg/dL (7.6-11.0); Carbon Dioxide 26.2 mmol/L (21.0-32.0); Chloride 97 mmol/L (98-108); Estimated Creatinine Clearance 86.85 ml/min (50-250); Glucose 139 mg/dL (70-99); Potassium 4.7 mmol/L (3.3-5.1)
[2024-10-04 10:11] LABS: Hematocrit 32.5 % (37-47); Hemoglobin 10.6 g/dL (12.0-15.0); Immature Granulocytes Count 0.230 X10^3/uL (0.0-0.0); Mean Corp Hgb Conc 32.6 g/dL (32-36); Mean Corpuscular Volume 91.8 fL (81-99); Mean Platelet Vol. 9.4 fl (6.2-12.0); NRBC Flagged by Analyzer 0 % (0-5); Platelet Count 512 K/mm3 (150-450); RBC Distribution Width CV 17.0 % (11.6-14.6); RBC Distribution Width SD 57.2 fl (35.1-43.9); Red Blood Count 3.54 M/mm3 (4.2-5.4); White Blood Count 13.5 K/mm3 (4.4-11.0)
--- NOTE | 2024-10-04 13:39 | PCM.PROGNOTE ---
Subjective Subjective Patient seen and examined. She complained of some right upper quadrant pain. Patient generally felt uncomfortable. According to her nurse patient had been noted to be confused and having some hallucinations overnight. Patient denies any fever or chills, nausea or vomiting or any other symptoms apart from the aforementioned pain. I did see her with her nurse by her bedside. Review of systems otherwise negative. Objective Data Objective Data Vital Signs: Vital Signs Temp Pulse Resp BP Pulse Ox O2 Del Method O2 Flow Rate 98.0 F 101 H 18 129/80 H 94 Room Air 2 10/04/24 08:10 10/04/24 13:11 10/04/24 13:11 10/04/24 08:10 10/04/24 08:10 10/04/24 08:10 10/01/24 09:32 FiO2 21 10/03/24 21:58 Oxygen Flow Rate (L/min) 2 Oxygen Delivery Method Room Air Weight: 290 lb 9.108 oz Body Mass Index (BMI) 49.6 Intake & Output: Intake and Output for Last 24 Hours 10/02/24 10/03/24 10/04/24 23:59 23:59 23:59 Intake Total 650 / 650 1095 / 1095 100.25 / 100.25 Output Total 5520 / 5520 Balance -4870 / -4870 1095 / 1095 100.25 / 100.25 Lab / Micro Data 10/04/24 10:00 10/04/24 09:02 Labs: Laboratory Results - last 24 hr 10/02/24 13:55: Fl Pathologist Comment Reviewed 10/03/24 16:53: POC Glucose 126 H 10/03/24 23:14: POC Glucose 127 H 10/04/24 01:08: POC Glucose 131 H 10/04/24 06:18: POC Glucose 104 10/04/24 06:32: WBC Cancelled, Corrected WBC Cancelled, RBC Cancelled, Hgb Cancelled, Hct Cancelled, MCV Cancelled, MCH Cancelled, MCHC Cancelled, RDW Std Deviation Cancelled, RDW Coeff of Alfredo Cancelled, Plt Count Cancelled, MPV Cancelled, Immature Gran % (Auto) Cancelled, Neut % (Auto) Cancelled, Lymph % (Auto) Cancelled, Gaston % (Auto) Cancelled, Eos % (Auto) Cancelled, Baso % (Auto) Cancelled, Absolute Neuts (auto) Cancelled, Absolute Lymphs (auto) Cancelled, Total Counted Cancelled, Neutrophils % (Manual) Cancelled, Band Neutrophils % Cancelled, Lymphocytes % (Manual) Cancelled, Monocytes % (Manual) Cancelled, Eosinophils % (Manual) Cancelled, Basophils % (Manual) Cancelled, Metamyelocytes % Cancelled, Myelocytes % Cancelled, Promyelocytes % Cancelled, Blast Cells % Cancelled, Plasma Cell % (Manual) Cancelled, Other Cells % Cancelled, Nucleated RBC % Cancelled, Nucleated RBCs/100 WBC Cancelled, Differential Comment Cancelled, Diff Path Review Cancelled, Hypersegmented Neuts Cancelled, Atypical Lymphocytes Cancelled, Reactive Lymphocytes Cancelled, Smudge Cells Cancelled, Toxic Granulation Cancelled, Toxic Vacuolation Cancelled, Dohle Bodies Cancelled, Raisa Rods Cancelled, Platelet Estimate Cancelled, Plt Morphology Comment Cancelled, RBC Morphology Cancelled 10/04/24 06:32: RBC Morphology Cancelled, Polychromasia Cancelled, Hypochromasia Cancelled, Basophilic Stippling Cancelled, Anisocytosis Cancelled, Microcytosis Cancelled, Macrocytosis Cancelled, Spherocytes Cancelled, Sickle Cells Cancelled, Target Cells Cancelled, Tear Drop Cells Cancelled, Ovalocytes Cancelled, Stomatocytes Cancelled, [place] Bodies Cancelled, Gissel Cells Cancelled, Bite Cells Cancelled, Crenated Cell Cancelled, Acanthocytes (Spur) Cancelled, Rouleaux Cancelled, Schistocytes Cancelled, Sodium Cancelled, Potassium Cancelled, Chloride Cancelled, Carbon Dioxide Cancelled, Anion Gap Cancelled, BUN Cancelled, Creatinine Cancelled, Estim Creat Clear Calc Cancelled, Est GFR (MDRD) Non-Af Cancelled, BUN/Creatinine Ratio Cancelled, Glucose Cancelled, Calcium Cancelled 10/04/24 09:02: Sodium 134, Potassium 4.7, Chloride 97 L, Carbon Dioxide 26.2, Anion Gap 10, BUN 10, Creatinine 1.00, Estim Creat Clear Calc 86.85, Est GFR (MDRD) Non-Af 67, BUN/Creatinine Ratio 10.0, Glucose 139 H, Calcium 8.1 10/04/24 10:00: WBC 13.5 H, RBC 3.54 L, Hgb 10.6 L, Hct 32.5 L, MCV 91.8 D, MCH 29.9, MCHC 32.6 D, RDW Std Deviation 57.2 H, RDW Coeff of Alfredo 17.0 H, Plt Count 512 H, MPV 9.4, Immature Gran % (Auto) 1.700 H, Neut % (Auto) 74.1 H, Lymph % (Auto) 12.1 L, Gaston % (Auto) 11.0 H, Eos % (Auto) 0.7, Baso % (Auto) 0.4, Absolute Neuts (auto) 10.0 H, Absolute Lymphs (auto) 1.64, Nucleated RBC % 0 10/04/24 11:54: POC Glucose 123 H Micro: Microbiology 10/02/24 13:55 Fluid - Ascites Gram Stain - Final 10/02/24 13:55 Fluid - Ascites Body Fluid Culture - Preliminary No growth-Final to follow 09/27/24 17:04 Urine, Clean Catch Urine Culture - Final Pseudomonas aeruginosa Radiography Diagnostic Testing: Radiology Impression Knee X-Ray 10/04/24 01:46 IMPRESSION: No injury noted. Reading Location: [place] [address] Knee X-Ray 10/04/24 01:46 IMPRESSION: No acute findings Reading Location: [place] [address] Physical Exam Const alert and oriented x3 Constitutional Narrative: class III obesity, patient looks visibly uncomfortable. General Appearance: cooperative Orientation / Consciousness: lethargic HEENT normocephalic, head/scalp atraumatic, hearing grossly normal bilaterally, nasal mucous membranes and turbinates normal and moist oral mucous membranes Eyes PERRL, EOMs intact bilaterally and conjunctivae normal Neck full ROM, no lymphadenopathy and supple Lymph Lymphatic: no lymphedema noted Chest inspection of chest normal Resp Resp Narrative: mildly diminished breath sounds bibasally, no wheezes or crackles. On room air. Cardio regular rate, regular rhythm, S1 normal heart sound, S2 normal heart sound, no murmurs, no rub, no gallops, no clicks and peripheral pulses 2+ throughout GI GI Narrative: obese abdomen, dressing over RUQ (liver area), positive fluid thrill, RUQ tenderness, no guarding or rebound tenderness. Difficult to palpate organomegaly due to abdominal distension and obesity. Back/Spine normal ROM Extremity full ROM, normal capillary refill, no clubbing, cyanosis or edema and no calf tenderness General Extremity: no tenderness to palpation of joints or extremities Skin no rashes or lesions noted General Skin Exam: no breakdown Neuro Neuro Narrative: positive hepatic flap, weak and lethargic though able to answer questions. Motor Exam: general weakness Psych Psych Narrative: patient weak, lethargic. 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 abdomen still distended with positive fluid thrill. Fluid cytology from previous paracentesis shows atypical cells, but no evidence of malignancy tumor markers elevated. CA 19-9 elevated at 104, Ca 125 also elevated at 188. CEA antigen is only minimally elevated at 5.4. further management dependent on pathology findings oncology and gastroenterology consulted in light of the elevated tumor markers. Liver biopsy pathology report pending started on lactulose today due to confusion and hallucinations overnight as well as presence of hepatic flap. Ammonia level ordered and pending #Leucocytosis:Urine cultures grew Pseudomonas. She is on meropenem. wbc is 13.5 today. Today is Day 7 of meropenem. However, since wbc is still elevated, will continue for a 10 day course. #Anemia: this is chronic. Hb seems to be at baseline. Will monitor. #Hyperkalemia: K is down to 4.7 today after giving kayexalate yesterday. #Thrombocytosis: stable. Will monitor #Hypothyroidism: on synthroid # History of DVT and PE: On therapeutic Lovenox. #Debility and weakness PT OT on board. Uses wheeled walker at her alf #Right eye infection: Has been on eyedrops, continue. #History of DAVY: On BiPAP as needed #Type 2 diabetes mellitus with neuropathy: On insulin sliding scale. Checks ACHS. On gabapentin #Hyperlipidemia: On statin Depression and anxiety: On trazodone and citalopram #COPD: not in exacerbation. Breathing treatment with bronchodilators. Class III obesity: BMI is 49.6. Complicates acute care, expected recovery and prognosis. DVT prophylaxis: on therapeutic lovenox. Charges/Coding Visit Charges Inpatient E&M: 17563 Subs Hosp L2
[2024-10-04 15:22] LABS: Ammonia 22.0 umol/L (11-51)
[2024-10-04 15:23] LABS: AST(SGOT) 31 U/L (<=31); Alanine Aminotransfer ALT/SGPT 10 U/L (<=34); Albumin, Serum 2.5 g/dL (3.5-5.0); Alkaline Phosphatase 154 U/L (35-104); Bilirubin, Direct 0.19 mg/dL (0.00-0.30); Globulin 3.2 g/dL (2.2-4.2)
[2024-10-05] VITALS (11 sets, daily range): BP systolic 114–144; BP diastolic 74–97; PULSE 88–100; RESP 15–20; TEMP 35.7–36.7; O2SAT 90–97
[2024-10-05] MEDS: Meropenem 500 MG in 0.9% Normal Saline (50mL MB+) 50 ML 100 MG IV ×3 (06:09→22:02)
[2024-10-05] MEDS: 0.9% Normal Saline (250mL Bag) 250 ML 15 ML IV (06:11)
[2024-10-05] MEDS: 0.9% Saline Lock 10 ML Syringe IV ×2 (07:36→21:34)
[2024-10-05 07:46] LABS: Hematocrit 34.7 % (37-47); Hemoglobin 11.4 g/dL (12.0-15.0); Immature Granulocytes Count 0.150 X10^3/uL (0.0-0.0); Mean Corp Hgb Conc 32.9 g/dL (32-36); Mean Corpuscular Volume 93.0 fL (81-99); Mean Platelet Vol. 10.0 fl (6.2-12.0); NRBC Flagged by Analyzer 0 % (0-5); POSITIVE DIFFERENTIAL YES; Platelet Count 510 K/mm3 (150-450); RBC Distribution Width CV 16.9 % (11.6-14.6); RBC Distribution Width SD 57.1 fl (35.1-43.9); Red Blood Count 3.73 M/mm3 (4.2-5.4); White Blood Count 15.5 K/mm3 (4.4-11.0)
[2024-10-05 07:55] LABS: Differential Indicated SCAN CRITERIA MET
--- NOTE | 2024-10-05 08:00 | US_ITS ---
PROCEDURE: PARACENTESIS WITH US 10/05/2024 REASON FOR EXAM: ASCITES TECHNIQUE: PARACENTESIS WITH US FINDINGS: Procedure: Following informed consent, and using standard sterile technique, a left abdominal ultrasound guided paracentesis was performed. 2% lidocaine local anesthesia was followed by placement of a 5 Serbian catheter into the fluid collection. A total of 2440 mL cloudy light yellow fluid was successfully removed. No complication was encountered, in the patient left the department in good condition without significant complaint. US/Paracentesis with US IMPRESSION: Successful ultrasound-guided abdominal paracentesis. Reading Location: [place] [address]
[2024-10-05 08:13] LABS: Anion Gap 11 (5-15); BUN 10 mg/dL (4-19); BUN/Creat Ratio 8.6 RATIO (10-20); Calcium,Total 8.9 mg/dL (7.6-11.0); Carbon Dioxide 25.7 mmol/L (21.0-32.0); Chloride 95 mmol/L (98-108); Estimated Creatinine Clearance 78.95 ml/min (50-250); Glucose 102 mg/dL (70-99); Potassium 4.9 mmol/L (3.3-5.1)
[2024-10-05 08:39] LABS: Polychromasia 1+
[2024-10-05] MEDS: Lidocaine 2% (20 ml mdv) 20 ML Vial INFILT (08:51)
[2024-10-05] MEDS: Polyethylene Glycol 3350 17 GM PACKET PO (10:05)
--- NOTE | 2024-10-05 10:56 | CT_ITS ---
PROCEDURE: BRAIN/HEAD W/WO CONTRAST 10/05/2024 REASON FOR EXAM: ACUTE ENCEPHALOPATHY, CONCERN FOR BRAIN METS TECHNIQUE: BRAIN/HEAD W/WO CONTRAST Coronal and Sagittal reconstruction series were provided. CONTRAST: Isovue 370 VOLUME: 91 mL One or more dose reduction techniques were used (e.g., Automated exposure control, adjustment of the mA and/or kV according to patient size, use of iterative reconstruction technique). RADIATION DOSE SUMMARY: CTDlvol: 44.99 mGy DLP: 1648.46 mGycm COMPARISON: CT head August 28, 2024. FINDINGS: Acute findings: None. Brain: Within normal limits for age. No acute territorial infarction. No intracranial hemorrhage. No midline shift or mass effect. Postcontrast images: Unremarkable. No enhancing lesions. CSF Spaces: Mild generalized cerebral atrophy Sinuses/Mastoids: Clear Bones: No acute bony abnormalities. CT/Brain/Head W/WO Contrast IMPRESSION: No acute intracranial abnormalities. Please note that MRI brain with contrast is a more sensitive modality. Reading Location: [id number]
[2024-10-05] MEDS: Albumin Human 25% (100 mL) 25 GM/100 ML BAG IV (11:39)
--- NOTE | 2024-10-05 12:42 | CASEMGMT ---
Social Work- SW coordinated with PT regarding pt potential decline and need for check-in to assist in continued d/c planning. SW remains available to follow. EVAN White
--- NOTE | 2024-10-05 15:08 | PCM.PROGNOTE ---
Subjective Subjective Patient seen and examined with her nurse at her bedside. She has been having episodic confusion. She denies any headache, chest pain, palpitations, nausea or vomiting. She did have paracentesis today with removal of 2.44 L of fluid. It was a therapeutic paracentesis. Pathology report is back today and then liver biopsy did confirm liver cancer. Objective Data Objective Data Vital Signs: Vital Signs Temp Pulse Resp BP Pulse Ox O2 Del Method O2 Flow Rate 97.9 F 98 18 134/88 H 95 Room Air 2 10/05/24 10:00 10/05/24 10:00 10/05/24 10:00 10/05/24 10:00 10/05/24 10:00 10/05/24 10:36 10/01/24 09:32 FiO2 21 10/04/24 19:42 Oxygen Flow Rate (L/min) 2 Oxygen Delivery Method Room Air Weight: 290 lb 9.108 oz Body Mass Index (BMI) 49.6 Intake & Output: Intake and Output for Last 24 Hours 10/03/24 10/04/24 10/05/24 23:59 23:59 23:59 Intake Total 1095 / 1095 365.00 / 365.00 356 / 356 Output Total 2240 / 2240 Balance 1095 / 1095 365.00 / 365.00 -1884 / -1884 Lab / Micro Data 10/05/24 07:24 10/05/24 07:24 Labs: Laboratory Results - last 24 hr 10/04/24 14:43: Total Bilirubin 0.41, Direct Bilirubin 0.19, AST 31, ALT 10, Alkaline Phosphatase 154 H, Ammonia 22.0, Total Protein 5.7 L, Albumin 2.5 L, Globulin 3.2 10/04/24 16:20: POC Glucose 142 H 10/04/24 22:31: POC Glucose 111 H 10/05/24 06:18: POC Glucose 100 10/05/24 07:24: WBC 15.5 H, RBC 3.73 L, Hgb 11.4 L, Hct 34.7 L, MCV 93.0, MCH 30.6, MCHC 32.9, RDW Std Deviation 57.1 H, RDW Coeff of Alfredo 16.9 H, Plt Count 510 H, MPV 10.0, Immature Gran % (Auto) 1.000 H, Neut % (Auto) 71.7 H, Lymph % (Auto) 15.7 L, [place] % (Auto) 10.0, Eos % (Auto) 1.1, Baso % (Auto) 0.5, Absolute Neuts (auto) 11.1 H, Absolute Lymphs (auto) 2.43, Nucleated RBC % 0, Platelet Estimate MOD INC, Polychromasia 1+, Sodium 132 L, Potassium 4.9, Chloride 95 L, Carbon Dioxide 25.7, Anion Gap 11, BUN 10, Creatinine 1.10, Estim Creat Clear Calc 78.95, Est GFR (MDRD) Non-Af 60, BUN/Creatinine Ratio 8.6 L, Glucose 102 H, Calcium 8.9 10/05/24 11:37: POC Glucose 103 Micro: Microbiology 10/02/24 13:55 Fluid - Ascites Gram Stain - Final 10/02/24 13:55 Fluid - Ascites Body Fluid Culture - Final Culture exhibits no growth. 10/02/24 13:55 Fluid - Ascites Anaerobic Culture - Preliminary No growth in 48 hours. 09/27/24 17:04 Urine, Clean Catch Urine Culture - Final Pseudomonas aeruginosa Radiography Diagnostic Testing: Radiology Impression Paracentesis Ultrasound 10/05/24 08:00 IMPRESSION: Successful ultrasound-guided abdominal paracentesis. Reading Location: [facility] [address] 10/05/24 10:56 IMPRESSION: No acute intracranial abnormalities. Please note that MRI brain with contrast is a more sensitive modality. Reading Location: [facility] Physical Exam Const alert Constitutional Narrative: class III obesity, patient restless though able to communicate HEENT normocephalic, head/scalp atraumatic, hearing grossly normal bilaterally, nasal mucous membranes and turbinates normal and moist oral mucous membranes Eyes PERRL, EOMs intact bilaterally and conjunctivae normal Neck full ROM, no lymphadenopathy and supple Lymph Lymphatic: no lymphedema noted Chest inspection of chest normal Resp Resp Narrative: mildly diminished breath sounds bibasally, no wheezes or crackles. On room air. Cardio regular rate, regular rhythm, S1 normal heart sound, S2 normal heart sound and no murmurs GI non-tender GI Narrative: obese abdomen, dressing over RUQ (liver area), positive fluid thrill, RUQ tenderness, no guarding or rebound tenderness. Difficult to palpate organomegaly due to abdominal distension and obesity. Back/Spine normal ROM Extremity full ROM, normal capillary refill, no clubbing, cyanosis or edema and no calf tenderness Extremity Narrative: Bilateral lower extremity chronic edema, no cyanosis or clubbing General Extremity: no tenderness to palpation of joints or extremities Skin no rashes or lesions noted General Skin Exam: no breakdown Neuro Neuro Narrative: positive hepatic flap, weak and lethargic though able to answer questions. 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 She had another paracentesis today with removal of 2.44 L of fluid. abdomen still distended with positive fluid thrill. Fluid cytology from previous paracentesis shows atypical cells, but no evidence of malignancy tumor markers elevated. CA 19-9 elevated at 104, Ca 125 also elevated at 188. CEA antigen is only minimally elevated at 5.4. Pathology report came back today with biopsy showing liver cancer of the left lobe. Further characterization with immunohistochemistry is pending. oncology and gastroenterology consulted in light of the elevated tumor markers. Liver biopsy pathology report pending Oncology reviewed her according to the nurse practitioner that because there were no pathology report results back and they wish for patient follow-up on outpatient basis. Ammonia level was not elevated but in light of the confusion and asterixis patient started on lactulose yesterday. Awaiting GI evaluation. #Leucocytosis:Urine cultures grew Pseudomonas. She is on meropenem. wbc is 13.5 today. Today is Day 8 of meropenem. However, since wbc is still elevated, will continue for a 10 day course. #Anemia: this is chronic. Hb seems to be at baseline. Will monitor. #Hyperkalemia: Resolved. #Thrombocytosis: stable. Will monitor #Hypothyroidism: on synthroid # History of DVT and PE: On therapeutic Lovenox. #Debility and weakness PT OT on board. Uses wheeled walker at her alf #Right eye infection: Has been on eyedrops, continue. #History of DAVY: On BiPAP as needed #Type 2 diabetes mellitus with neuropathy: On insulin sliding scale. Checks ACHS. On gabapentin #Hyperlipidemia: On statin Depression and anxiety: On trazodone and citalopram #COPD: not in exacerbation. Breathing treatment with bronchodilators. Class III obesity: BMI is 49.6. Complicates acute care, expected recovery and prognosis. DVT prophylaxis: on therapeutic lovenox. Charges/Coding Visit Charges Inpatient E&M: 26138 Subs Hosp L2
--- NOTE | 2024-10-05 18:47 | CON.PCM.GI_ITS ---
HPI Consult Data Date of Consult: 10/05/24 HPI Narrative Reason for Consultation: Cirrhosis HPI Narrative: COURTNEY CARMEN, is a 54 y/o female with known history of POOLE cirrhosis ?(Child- Lawrence B, MELD score in the moderate range) presents with recurrent ascites and a newly identified liver mass. She reports increasing abdominal girth and discomfort due to fluid retention, requiring frequent paracentesis. She has noticed increasing fatigue and occasional lower extremity edema. She denies any new fever, chills, or jaundice. Patient has a history of type 2 diabetes and obesity. Liver mass was biopsied: MICROSCOPIC DIAGNOSIS A. Liver, left lobe, core biopsy: - Malignant neoplasm. - Further characterization with IHC is pending and the findings will be reported in an addendum. Liver mass is suspicious for HCC given the context of cirrhosis and elevated AFP. Patients with cirrhosis are at a significantly increased risk of developing HCC, according to the [facility]. * Consideration also given to other focal liver lesions in a cirrhotic liver, although HCC is most likely given the imaging characteristics and elevated AFP. * Patient is at risk for complications of cirrhosis, including variceal bleeding, hepatic encephalopathy, and spontaneous bacterial peritonitis (SBP). [facility] Medical History Toxic metabolic encephalopathy MARYANA (acute kidney injury) Noncompliance with medication regimen Acute hypoxic on chronic hypercapnic respiratory failure Myxedema coma Elevated serum creatinine Sinus bradycardia on ECG Kidney failure MARYANA (acute kidney injury) Fatigue MARYANA (acute kidney injury) Walker as ambulation aid Ambulates with cane Low iron History of renal disease High cholesterol DVT (deep venous thrombosis) PONV (postoperative nausea and vomiting) Stroke/cerebrovascular accident Sleep apnea Fall Cardiology follow-up encounter Scalp hematoma Pulmonary embolism Post-menopausal Thyroid disease Injury of head and neck Dietary restriction Difficulty swallowing BiPAP (biphasic positive airway pressure) dependence COPD (chronic obstructive pulmonary disease) Shortness of breath on exertion Leg cramps History of pain when walking History of edema History of echocardiogram History of stress test Syncope Abnormal glucose Noncompliance DAVY treated with BiPAP UTI (urinary tract infection) Vitamin D deficiency Restless leg syndrome Vitamin B12 deficiency Iron deficiency anemia History of chronic back pain Wears glasses Arthritis Non-smoker Hydronephrosis Depression Anemia Migraine headache Chronic kidney disease Diabetes mellitus Gout Celiac disease Hyperlipidemia GERD (gastroesophageal reflux disease) Dyspnea on exertion Chest pain Hypersomnia Cardiac murmur Microcytic anemia Hypertension Morbid obesity with BMI of 40.0-44.9, adult Asthma Hypothyroidism Anxiety Home Medications ?Medication ?Instructions ?Recorded ?Last Taken ?Type insulin lispro 100 unit/mL 1 sliding scale dose subcut ACHS 06/27/24 06/27/24 History subcutaneous pen (Humalog KwikPen diabetes (U-100) Insulin) rimegepant 75 mg disintegrating 75 mg PO DAILY PRN jeny víctor 06/27/24 Unknown History tablet (Nurtec ODT) citalopram 20 mg tablet 40 mg (2 x 20 mg) PO DAILY 0 08/08/24 06/27/24 Rx depression #1 TAB budesonide-formoterol HFA 160 2 puff inhalation BID Unknown History mcg-4.5 mcg/actuation aerosol inhaler (Symbicort) cyclobenzaprine 5 mg tablet 5 mg PO QPM 09/02/24 Unkno wn History diclofenac sodium 3 % topical gel 1 ea topical BID PRN PRN pain 09/02/24 Unknown History (scale score 1-3) fluticasone propionate 50 2 spray intranasal BID aller gies 09/02/24 Unknown History mcg/actuation nasal spray,suspension gabapentin 300 mg capsule 300 mg PO TID 09/02/24 Unkno wn History galcanezumab-gnlm 120 mg/mL 120 mg subcut QMONTH 09/02 Unknown History subcutaneous pen injector (Emgality Pen) ganciclovir 0.15 % eye gel (Zirgan) 1 drp RIGHT EYE 4X /DAY 09/02/24 Unknown History lorazepam 0.5 mg tablet 0.5 mg PO TID PRN anxiety Unknown History moxifloxacin 0.5 % eye drops 1 drp RIGHT EYE Q2H 09/02 Unknown History apixaban 5 mg (74 tabs) tablets in 5 mg PO BID #180 ta bs 09/24/24 Unknown Rx a dose pack (Eliquis DVT-PE Treat 30D Start) atorvastatin 40 mg tablet 40 mg PO QHS cholestrol #90 tabs 09/24/24 Unknown Rx isosorbide mononitrate 30 mg 30 mg PO DAILY #90 tabs 0 09/24/24 Unknown Rx tablet,extended release 24 hr dicyclomine 20 mg tablet 20 mg PO Q6H PRN PRN abdomin al 09/25/24 Unknown Rx discomfort #12 tabs levothyroxine 200 mcg capsule 200 mcg PO QDAY 09/25/24 Unknown History levothyroxine 25 mcg capsule 25 mcg PO QDAY 09/25/24 U nknown History Allergy/AdvReac Type Severity Reaction Status Date / Time hydrochlorothiazide AdvReac Intermediate Contributes Verified 09/27/24 15:57 to gout naproxen (From Naprosyn) AdvReac Intermediate Nausea Verified 09/27/24 15:57 aspirin AdvReac Nausea Verified 09/27/24 15:57 Penicillins AdvReac Other Verified 09/27/24 15:57 Family History Father , Age 72 Hypertension Mother CAD (coronary artery disease) Myocardial infarction, Onset Age: 55 Hypertension Sister CAD (coronary artery disease) Brother Cancer Surgical History History of cardiac catheterization History of History of carpal tunnel surgery of right wrist History of carpal tunnel surgery of left wrist Hx of cystoscopy History of left heart catheterization (11/11/20) history of uterine ablation Social History household members: spouse housing: apartment Smoking Status: Never smoker alcohol intake: never substance use type: does not use caffeine: No Lab / Micro Data 10/05/24 07:24 10/05/24 07:24 Labs: Laboratory Results - last 24 hr 10/04/24 22:31: POC Glucose 111 H 10/05/24 06:18: POC Glucose 100 10/05/24 07:24: WBC 15.5 H, RBC 3.73 L, Hgb 11.4 L, Hct 34.7 L, MCV 93.0, MCH 30.6, MCHC 32.9, RDW Std Deviation 57.1 H, RDW Coeff of Alfredo 16.9 H, Plt Count 510 H, MPV 10.0, Immature Gran % (Auto) 1.000 H, Neut % (Auto) 71.7 H, Lymph % (Auto) 15.7 L, Ogle % (Auto) 10.0, Eos % (Auto) 1.1, Baso % (Auto) 0.5, Absolute Neuts (auto) 11.1 H, Absolute Lymphs (auto) 2.43, Nucleated RBC % 0, Platelet Estimate MOD INC, Polychromasia 1+, Sodium 132 L, Potassium 4.9, Chloride 95 L, Carbon Dioxide 25.7, Anion Gap 11, BUN 10, Creatinine 1.10, Estim Creat Clear Calc 78.95, Est GFR (MDRD) Non-Af 60, BUN/Creatinine Ratio 8.6 L, Glucose 102 H, Calcium 8.9 10/05/24 11:37: POC Glucose 103 10/05/24 16:18: POC Glucose 99 Micro: Microbiology 10/02/24 13:55 Fluid - Ascites Gram Stain - Final 10/02/24 13:55 Fluid - Ascites Body Fluid Culture - Final Culture exhibits no growth. 10/02/24 13:55 Fluid - Ascites Anaerobic Culture - Preliminary No growth in 48 hours. Imaging Radiology Impression Paracentesis Ultrasound 10/05/24 08:00 IMPRESSION: Successful ultrasound-guided abdominal paracentesis. Reading Location: [facility]-[address] 10/05/24 10:56 IMPRESSION: No acute intracranial abnormalities. Please note that MRI brain with contrast is a more sensitive modality. Reading Location: [id number]
--- NOTE | 2024-10-05 18:47 | EX.PCM.CON.G ---
HPI Consult Data Date of Consult: 10/05/24 HPI Narrative Reason for Consultation: Cirrhosis HPI Narrative: COURTNEY CARMEN, is a 54 y/o female with known history of POOLE cirrhosis ?(Child-Lawrence B, MELD score in the moderate range) presents with recurrent ascites and a newly identified liver mass. She reports increasing abdominal girth and discomfort due to fluid retention, requiring frequent paracentesis. She has noticed increasing fatigue and occasional lower extremity edema. She denies any new fever, chills, or jaundice. Patient has a history of type 2 diabetes and obesity. Laboratory results: Serum albumin: Low, consistent with liver dysfunction. Serum creatinine: Within normal limits. Serum sodium: Within normal limits. INR: Mildly elevated, consistent with cirrhosis. Alpha-fetoprotein (AFP): normal . Carbohydrate Antigen 19-9 (CA 19-9): Elevated. Cancer Antigen 125 (CA 125): Elevated. Elevated CA 125 is not only associated with ovarian malignancy, but also ascites due to cirrhosis Imaging results (CT abdomen/pelvis): Enlarged, nodular liver with moderate ascites and a focal lesion ( in segment VIII, measuring 2.5 cm. Characteristics on imaging raise concern for hepatocellular carcinoma (HCC). Ascitic fluid analysis: Atypical cells present.Liver mass is suspicious for HCC given the context of cirrhosis and elevated AFP. Patients with cirrhosis are at a significantly increased risk of developing HCC Consideration also given to other focal liver lesions in a cirrhotic liver, although HCC is most likely given the imaging characteristics and elevated AFP. Patient is at risk for complications of cirrhosis, including variceal bleeding, hepatic encephalopathy, and spontaneous bacterial peritonitis (SBP). Liver mass was biopsied: MICROSCOPIC DIAGNOSIS A. Liver, left lobe, core biopsy: - Malignant neoplasm. - Further characterization with IHC is pending and the findings will be reported in an addendum. [facility] Medical History Toxic metabolic encephalopathy MARYANA (acute kidney injury) Noncompliance with medication regimen Acute hypoxic on chronic hypercapnic respiratory failure Myxedema coma Elevated serum creatinine Sinus bradycardia on ECG Kidney failure MARYANA (acute kidney injury) Fatigue MARYANA (acute kidney injury) Walker as ambulation aid Ambulates with cane Low iron History of renal disease High cholesterol DVT (deep venous thrombosis) PONV (postoperative nausea and vomiting) Stroke/cerebrovascular accident Sleep apnea Fall Cardiology follow-up encounter Scalp hematoma Pulmonary embolism Post-menopausal Thyroid disease Injury of head and neck Dietary restriction Difficulty swallowing BiPAP (biphasic positive airway pressure) dependence COPD (chronic obstructive pulmonary disease) Shortness of breath on exertion Leg cramps History of pain when walking History of edema History of echocardiogram History of stress test Syncope Abnormal glucose Noncompliance DAVY treated with BiPAP UTI (urinary tract infection) Vitamin D deficiency Restless leg syndrome Vitamin B12 deficiency Iron deficiency anemia History of chronic back pain Wears glasses Arthritis Non-smoker Hydronephrosis Depression Anemia Migraine headache Chronic kidney disease Diabetes mellitus Gout Celiac disease Hyperlipidemia GERD (gastroesophageal reflux disease) Dyspnea on exertion Chest pain Hypersomnia Cardiac murmur Microcytic anemia Hypertension Morbid obesity with BMI of 40.0-44.9, adult Asthma Hypothyroidism Anxiety Home Medications ?Medication ?Instructions ?Recorded ?Last Taken ?Type insulin lispro 100 unit/mL 1 sliding scale dose subcut ACHS 06/27/24 06/27/24 History subcutaneous pen (Humalog KwikPen diabetes (U-100) Insulin) rimegepant 75 mg disintegrating 75 mg PO DAILY PRN migraine 06/27/24 Unknown History tablet (Nurtec ODT) citalopram 20 mg tablet 40 mg (2 x 20 mg) PO DAILY 08/08/24 06/27/24 Rx depression #1 TAB budesonide-formoterol HFA 160 2 puff inhalation BID 09/02/24 Unknown History mcg-4.5 mcg/actuation aerosol inhaler (Symbicort) cyclobenzaprine 5 mg tablet 5 mg PO QPM 09/02/24 Unknown History diclofenac sodium 3 % topical gel 1 ea topical BID PRN PRN pain 09/02/24 Unknown History (scale score 1-3) fluticasone propionate 50 2 spray intranasal BID allergies 09/02/24 Unknown History mcg/actuation nasal spray,suspension gabapentin 300 mg capsule 300 mg PO TID 09/02/24 Unknown History galcanezumab-gnlm 120 mg/mL 120 mg subcut QMONTH 09/02/24 Unknown History subcutaneous pen injector (Emgality Pen) ganciclovir 0.15 % eye gel (Zirgan) 1 drp RIGHT EYE 4X/DAY 09/02/24 Unknown History lorazepam 0.5 mg tablet 0.5 mg PO TID PRN anxiety 09/02/24 Unknown History moxifloxacin 0.5 % eye drops 1 drp RIGHT EYE Q2H 09/02/24 Unknown History apixaban 5 mg (74 tabs) tablets in 5 mg PO BID #180 tabs 09/24/24 Unknown Rx a dose pack (Eliquis DVT-PE Treat 30D Start) atorvastatin 40 mg tablet 40 mg PO QHS cholestrol #90 tabs 09/24/24 Unknown Rx isosorbide mononitrate 30 mg 30 mg PO DAILY #90 tabs 09/24/24 Unknown Rx tablet,extended release 24 hr dicyclomine 20 mg tablet 20 mg PO Q6H PRN PRN abdominal 09/25/24 Unknown Rx discomfort #12 tabs levothyroxine 200 mcg capsule 200 mcg PO QDAY 09/25/24 Unknown History levothyroxine 25 mcg capsule 25 mcg PO QDAY 09/25/24 Unknown History Allergy/AdvReac Type Severity Reaction Status Date / Time hydrochlorothiazide AdvReac Intermediate Contributes Verified 09/27/24 15:57 to gout naproxen (From Naprosyn) AdvReac Intermediate Nausea Verified 09/27/24 15:57 aspirin AdvReac Nausea Verified 09/27/24 15:57 Penicillins AdvReac Other Verified 09/27/24 15:57 Family History Father , Age 72 Hypertension Mother CAD (coronary artery disease) Myocardial infarction, Onset Age: 55 Hypertension Sister CAD (coronary artery disease) Brother Cancer Surgical History History of cardiac catheterization History of History of carpal tunnel surgery of right wrist History of carpal tunnel surgery of left wrist Hx of cystoscopy History of left heart catheterization (11/11/20) history of uterine ablation Social History household members: spouse housing: apartment Smoking Status: Never smoker alcohol intake: never substance use type: does not use caffeine: No ROS Constitutional Constitutional: Denies fatigue, fever(s), poor appetite, weight gain or weight loss Gastrointestinal Gastrointestinal: Denies belching, bloating, change in bowel habits, change in stool character, chewing difficulty, coffee ground emesis, constipation, cramping, diarrhea, dyspepsia, dysphagia, early satiety, excessive flatus, fecal incontinence, heartburn, hematemesis, hematochezia, hemorrhoids, loose stools, melena, nausea, odynophagia, rectal bleeding, tenesmus, vomiting or weight changes Physical Exam Const alert, oriented x3, no apparent distress and healthy appearing General Appearance: cooperative GI normal to inspection, nondistended, normoactive bowel sounds, soft to palpation, non-tender and non-distended Percussion: normal to percussion Rectal Exam: deferred Lab / Micro Data 10/05/24 07:24 10/05/24 07:24 Labs: Laboratory Results - last 24 hr 10/04/24 22:31: POC Glucose 111 H 10/05/24 06:18: POC Glucose 100 10/05/24 07:24: WBC 15.5 H, RBC 3.73 L, Hgb 11.4 L, Hct 34.7 L, MCV 93.0, MCH 30.6, MCHC 32.9, RDW Std Deviation 57.1 H, RDW Coeff of Alfredo 16.9 H, Plt Count 510 H, MPV 10.0, Immature Gran % (Auto) 1.000 H, Neut % (Auto) 71.7 H, Lymph % (Auto) 15.7 L, [place] % (Auto) 10.0, Eos % (Auto) 1.1, Baso % (Auto) 0.5, Absolute Neuts (auto) 11.1 H, Absolute Lymphs (auto) 2.43, Nucleated RBC % 0, Platelet Estimate MOD INC, Polychromasia 1+, Sodium 132 L, Potassium 4.9, Chloride 95 L, Carbon Dioxide 25.7, Anion Gap 11, BUN 10, Creatinine 1.10, Estim Creat Clear Calc 78.95, Est GFR (MDRD) Non-Af 60, BUN/Creatinine Ratio 8.6 L, Glucose 102 H, Calcium 8.9 10/05/24 11:37: POC Glucose 103 10/05/24 16:18: POC Glucose 99 Micro: Microbiology 10/02/24 13:55 Fluid - Ascites Gram Stain - Final 10/02/24 13:55 Fluid - Ascites Body Fluid Culture - Final Culture exhibits no growth. 10/02/24 13:55 Fluid - Ascites Anaerobic Culture - Preliminary No growth in 48 hours. Imaging Radiology Impression Paracentesis Ultrasound 10/05/24 08:00 IMPRESSION: Successful ultrasound-guided abdominal paracentesis. Reading Location: [facility] 10/05/24 10:56 IMPRESSION: No acute intracranial abnormalities. Please note that MRI brain with contrast is a more sensitive modality. Reading Location: [facility] Assessment & Plan Assessment/Plan (1) Ascites: (2) Abdominal pain: QUALIFIERS: Abdominal location: left upper quadrant Qualified Code(s): R10.12 - Left upper quadrant pain (3) Liver mass, left lobe: (4) Cirrhosis: PLAN: 54 y/o female with cirrhosis and recurrent ascites presents with a liver mass, elevated CA 19-9, CA 125, AFP, and atypical cells in the ascitic fluid. The liver mass is highly suspicious for HCC, especially with the elevated AFP. However, atypical cells in the ascites are not typical for HCC and suggest other potential causes, including peritoneal carcinomatosis from HCC (less common) or metastatic carcinomatosis from another primary site like the gastrointestinal tract, ovary, or pancreas. Mesothelioma is also a possibility given the ascites and elevated CA 125. Elevated CA 125 is known to occur with cirrhosis and ascites and is not specific to malignancy, but its presence alongside a liver mass and atypical cells warrants investigation. Elevated CA 19-9 can be linked to conditions like pancreatic cancer, bile duct disease, and liver disease. Diagnostic Evaluation:?Repeat paracentesis and peritoneal biopsy with detailed cytological and immunohistochemical analysis is recommended. Multiphasic liver MRI to look for other mass lesions. Consultations with oncology specialists are advised. Further evaluation for other potential primary cancers, particularly pancreatic and GI cancers, is needed given the elevated CA 19-9, and a transvaginal ultrasound may be considered for ovarian cancer. Ascites Management:?Continue the current management plan of low-sodium diet and diuretics, adjusting doses as needed. Therapeutic paracentesis with albumin infusion may be necessary for symptom relief. Monitor for complications like SBP and HRS. Possible Referral:?Referral to a liver transplant center is appropriate given the cirrhosis and suspected malignancy. Charges/Coding Visit Charges Inpatient E&M: 81621 Init Hosp L3
[2024-10-06] VITALS (9 sets, daily range): BP systolic 88–121; BP diastolic 70–94; PULSE 79–106; RESP 15–25; TEMP 36.6–37.1; O2SAT 93–96
--- NOTE | 2024-10-06 02:52 | NURSING ---
Patient hit call light asking for pain medication. When this RN rounded, patient was sleeping. Not awakened.
[2024-10-06] MEDS: Meropenem 500 MG in 0.9% Normal Saline (50mL MB+) 50 ML 100 MG IV ×3 (04:59→21:25)
[2024-10-06] MEDS: Albuterol 2.5 MG/3 ML VIAL.NEB. INHALATION ×3 (06:54→20:40)
[2024-10-06] MEDS: Budesonide Respules 0.5 MG/2 ML AMPUL.NEB. INHALATION ×2 (06:54→20:40)
[2024-10-06 07:19] LABS: Hematocrit 31.9 % (37-47); Hemoglobin 10.1 g/dL (12.0-15.0); Immature Granulocytes Count 0.120 X10^3/uL (0.0-0.0); Mean Corp Hgb Conc 31.7 g/dL (32-36); Mean Corpuscular Volume 93.5 fL (81-99); Mean Platelet Vol. 9.8 fl (6.2-12.0); NRBC Flagged by Analyzer 0 % (0-5); Platelet Count 514 K/mm3 (150-450); RBC Distribution Width CV 16.6 % (11.6-14.6); RBC Distribution Width SD 57.0 fl (35.1-43.9); Red Blood Count 3.41 M/mm3 (4.2-5.4); White Blood Count 12.3 K/mm3 (4.4-11.0)
--- NOTE | 2024-10-06 07:47 | MRI_ITS ---
PROCEDURE: MRI ABD WITH AND W/O CONTRAST 10/06/2024 REASON FOR EXAM: LIVER CANCER Liver masses seen by CT. Previous liver biopsy yielding malignancy. No provided history of hepatitis-B, prior hepatocellular carcinoma or cirrhosis. Personal history of hyperglycemia, renal dysfunction, celiac disease, diabetes, high cholesterol TECHNIQUE: MRI ABD WITH AND W/O CONTRAST Multiplanar and multisequence images were obtained. CONTRAST: Clariscan VOLUME: 35 mL COMPARISON: October 01, 2024 FINDINGS: Liver: The liver is non cirrhotic. Minimal, diffuse fatty liver is present. The timing of the contrast bolus in the arterial phase is accurate. Portal venous phase imaging is degraded by some artifact. Primarily within segment 4B but also extending into 4A and 8 is a large mass best appreciated on diffusion-weighted images. It shows minimal T2 prolongation. The arterial phase does not show a particularly hypervascular lesion (no arterial phase non rim hyper-enhancement). Portal venous phase does show heterogeneous enhancement that is slightly greater than background liver; no capsule is seen.. Washout is not a predominant feature on the delayed images. No microscopic or macroscopic fat is seen. It is at least 8.8 x 9.1 cm in the AP and transverse dimensions and best appreciated for measurement on the diffusion-weighted series. Subcentimeter focus in segment 7 near the dome of the liver on image 11 of the DWI is non-specific. Biliary: Small gallstone is seen. No biliary duct dilation. Pancreas: Unremarkable Spleen: Normal size Adrenals: Normal Kidneys: Cortical thinning is seen. No collecting system dilation. Bilateral parapelvic cysts are seen. Peritoneum / Retroperitoneum: No mass seen. Moderate ascites is present. Lymph Nodes: None appear enlarged. Major Vessels: Aortic atherosclerotic disease. No aneurysm. Bones: Unremarkable MRI/MRI Abd WITH and W/O Contrast IMPRESSION: 1. Large mass primarily in segment 4 of the liver measuring up to 9.1 cm. Thi s was recently sampled. Recommend correlation with pathology results. This is not particularly specific by imaging. Liver a ppears non cirrhotic grossly. Correlate with pathology specimen for features of cirrhosis if there is high pretest probabili ty for cirrhosis. There is ascites but the patient has a history of underlying renal dysfunction. No splenomegaly. 2. Subcentimeter lesions seen by diffusion-weighted imaging segment 7. Contin ued surveillance suggested. 3. Small gallstones. 4. Parapelvic renal cysts. Bosniak 1. No follow-up required. No collecting system dilation. Mild cortical thinning. Reading Location: [facility]
[2024-10-06 07:51] LABS: Anion Gap 9 (5-15); BUN 8 mg/dL (4-19); BUN/Creat Ratio 7.5 RATIO (10-20); Calcium,Total 8.5 mg/dL (7.6-11.0); Carbon Dioxide 26.7 mmol/L (21.0-32.0); Chloride 97 mmol/L (98-108); Estimated Creatinine Clearance 85.99 ml/min (50-250); Glucose 95 mg/dL (70-99); Potassium 4.3 mmol/L (3.3-5.1)
[2024-10-06] MEDS: Polyethylene Glycol 3350 17 GM PACKET PO ×2 (08:10→21:29)
--- NOTE | 2024-10-06 09:53 | CT_ITS ---
PROCEDURE: CT CHEST, ABD, PEL W/CONTRAST 10/06/2024 REASON FOR EXAM: LIVER CANCER, CHECK FOR METS TECHNIQUE: Chest, abdomen and pelvis CT with intravenous contrast. Coronal and Sagittal reconstruction series were provided. One or more dose reduction techniques were used (e.g., Automated exposure control, adjustment of the mA and/or kV according to patient size, use of iterative reconstruction technique. PATIENT PREPARATION: Per protocol ORAL CONTRAST TYPE: None. CONTRAST: Isovue 370 VOLUME: 100mL RADIATION DOSE SUMMARY: DLP: 2200 mGycm COMPARISON: Same-day abdominal MRI, CT abdomen pelvis 10/01/2024, CTA chest 08/28/2024. FINDINGS: CT CHEST: Hardware: None. Lymph nodes: No axillary, mediastinal or hilar lymphadenopathy. Heart and Vasculature: Mild cardiomegaly without pericardial effusion. The great vessels are normal in caliber. Moderate coronary artery and mild thoracic aortic calcifications. Lungs and Airways: Visualization is limited by motion artifact. Low lung volumes. The central airways are grossly patent. No large pulmonary mass. No pleural effusion or pneumothorax. Mild interlobular septal thickening. Bones: Mild thoracic spondylosis. CT ABDOMEN/PELVIS: Visualization is limited by motion artifact. Liver: The liver is normal in size with unchanged large, ill-defined hypodense mass within the anterior right hepatic lobe. The major portal veins are patent. No biliary ductal dilation. Gallbladder: No radiopaque stones within the gallbladder. Spleen: Normal-size. Pancreas: Limited by motion artifact. Grossly unremarkable. Adrenals: No large adrenal mass. Kidneys: Contrast opacifies the bilateral renal collecting systems, ureters and bladder. No hydronephrosis. Bladder: Mildly distended. Reproductive Organs: Grossly unremarkable. Bowel: The bowel loops are nondilated. Moderate volume abdominopelvic ascites. Scattered nodular densities throughout the omentum and mesenteric fat. No obvious pneumoperitoneum. No inflammatory mass in the expected region of the appendix. Lymph nodes: Periportal lymph nodes. Vasculature: At least moderate mixed plaque of the aortoiliac vessels. Bones/soft tissues: There is asymmetric thickening and edema of the left lateral abdominal wall musculature (for example series 4, image 63). Additional mild subcutaneous edema. Lumbar spondylosis. CT/CT Chest, Abd, Pel w/Contrast IMPRESSION: CT chest: 1. Limited evaluation. No large pulmonary mass or thoracic lymphadenopathy. 2. Mild cardiomegaly and interlobular septal thickening, which can be seen with CHF/volume overload. CT abdomen/pelvis: 1. Unchanged ill-defined right anterior hepatic lobe mass, compatible with prim marcello hepatic neoplasm or metastases. Correlation with recent biopsy results recommended. Additional moderate volume ascites and periportal lymph nodes, of indeterminate etiology. Diagnostic and therapeutic paracentesis may be useful for further ev aluation. 2. Omental thickening, concerning for omental metastases. 3. Asymmetric thickening and edema of the left lateral abdominal wall, which ma y be secondary to patient positioning and dependent ascites. However findings can also be seen with abdominal wall hemat jaelyn. Correlation with hemoglobin recommended. Reading Location: [id number]
[2024-10-06] MEDS: 0.9% Saline Lock 10 ML Syringe IV ×2 (12:57→13:46)
--- NOTE | 2024-10-06 13:25 | PN_ITS ---
Subjective Subjective Patient seen and examined. She is complaining of some upper abdominal pain today. It is at a time of my review. Review of systems otherwise negative. Patient counseled that the liver biopsy confirmed liver cancer. Gastroenterology reviewed her history and recommended ordering MRI of the liver. Also get CT chest to evaluate for any mets. Objective Data Objective Data Vital Signs: Vital Signs Temp Pulse Resp BP Pulse Ox O2 Del Method O2 Flow Rate 97.8 F 89 15 114/76 93 Room Air 2 10/06/24 08:00 10/06/24 08:00 10/06/24 08:00 10/06/24 08:00 10/06/24 08:00 10/06/24 09:00 10/01/24 09:32 FiO2 21 10/06/24 01:13 Oxygen Flow Rate (L/min) 2 Oxygen Delivery Method Room Air Weight: 290 lb 9.108 oz Body Mass Index (BMI) 49.6 Intake & Output: Intake and Output for Last 24 Hours 10/04/24 10/05/24 10/06/24 23:59 23:59 23:59 Intake Total 365.00 / 365.00 856 / 856 50 / 50 Output Total 2240 / 2240 Balance 365.00 / 365.00 -1384 / -1384 50 / 50 Lab / Micro Data 10/06/24 06:47 10/06/24 06:47 Labs: Laboratory Results - last 24 hr 10/05/24 16:18: POC Glucose 99 10/05/24 22:15: POC Glucose 112 H 10/06/24 05:18: POC Glucose 108 H 10/06/24 06:47: WBC 12.3 H, RBC 3.41 L, Hgb 10.1 L, Hct 31.9 L, MCV 93.5, MCH 29.6, MCHC 31.7 L, RDW Std Deviation 57.0 H, RDW Coeff of Alfredo 16.6 H, Plt Count 514 H, MPV 9.8, Immature Gran % (Auto) 1.000 H, Neut % (Auto) 73.1 H, Lymph % (Auto) 13.9 L, [place] % (Auto) 10.6 H, Eos % (Auto) 1.1, Baso % (Auto) 0.3, A bsolute Neuts (auto) 9.0 H, Absolute Lymphs (auto) 1.72, Nucleated RBC % 0, Sodium 133, Potassium 4.3, Chloride 97 L, Carbon Dioxide 26.7, Anion Gap 9, BUN 8, Creatinine 1.01, Estim Creat Clear Calc 85.99, Est GFR (MDRD) Non-Af 66, B UN/Creatinine Ratio 7.5 L, Glucose 95, Calcium 8.5 10/06/24 12:41: POC Glucose 103 Micro: Microbiology 10/02/24 13:55 Fluid - Ascites Gram Stain - Final 10/02/24 13:55 Fluid - Ascites Body Fluid Culture - Final Culture exhibits no growth. 10/02/24 13:55 Fluid - Ascites Anaerobic Culture - Preliminary No growth in 48 hours. 09/27/24 17:04 Urine, Clean Catch Urine Culture - Final Pseudomonas aeruginosa Radiography Diagnostic Testing: Radiology Impression Abdomen MRI 10/06/24 07:47 IMPRESSION: 1. Large mass primarily in segment 4 of the liver measuring up to 9.1 cm. This was recently sampled. Recommend correlation with pathology results. This is not particularly specific by imaging. Liver appears non cirrhotic grossly. Correlate with pathology specimen for features of cirrhosis if there is high pretest probability for cirrhosis. There is ascites but the patient has a history of underlying renal dysfunction. No splenomegaly. 2. Subcentimeter lesions seen by diffusion-weighted imaging segment 7. Continued surveillance suggested. 3. Small gallstones. 4. Parapelvic renal cysts. Bosniak 1. No follow-up required. No collecting system dilation. Mild cortical thinning. Reading Location: [facility] Physical Exam Const alert and no apparent distress Constitutional Narrative: class III obesity, patient restless though able to communicate General Appearance: cooperative Orientation / Consciousness: lethargic HEENT normocephalic, head/scalp atraumatic and hearing grossly normal bilaterally Mouth: dry mucous membranes Eyes EOMs intact bilaterally and conjunctivae normal Neck full ROM, no lymphadenopathy and supple Neck Narrative: neck is very short and thick Lymph Lymphatic: no lymphedema noted Chest inspection of chest normal Resp Resp Narrative: mildly diminished breath sounds bibasally, no wheezes or crackles. On room air. Cardio regular rate, regular rhythm, S1 normal heart sound, S2 normal heart sound, no murmurs and peripheral pulses 2+ throughout GI GI Narrative: obese abdomen, dressing over RUQ (liver area), positive fluid thrill, RUQ tenderness, no guarding or rebound tenderness. Difficult to palpate organomegaly due to abdominal distension and obesity. Back/Spine normal ROM Extremity Extremity Narrative: Bilateral lower extremity chronic edema, no cyanosis or clubbing General Extremity: no tenderness to palpation of joints or extremities Skin no rashes or lesions noted General Skin Exam: no breakdown Neuro oriented x3, moves all extremities and no focal motor deficits Neuro Narrative: positive hepatic flap, weak and lethargic though able to answer questions. Speech: speech normal Motor Exam: general weakness Psych Psych Narrative: patient weak, moves all extremities. 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 She had another paracentesis yesterday. with removal of 2.44 L of fluid.Received IV albumin x 1. * abdomen still distended with positive fluid thrill. * Fluid cytology from previous paracentesis shows atypical cells, but no evidence of malignancy * tumor markers elevated. CA 19-9 elevated at 104, Ca 125 also elevated at 188. CEA antigen is only minimally elevated at 5.4. * Pathology report came back with biopsy showing liver cancer of the left lobe. Further characterization with immunohistochemistry is pending. * oncology and gastroenterology consulted in light of the elevated tumor markers. Liver biopsy pathology report pending * Oncology reviewed her according to the nurse practitioner that because there were no pathology report results back and they wish for patient follow-up on outpatient basis. * GI on board and recommended liver MRI to better characterize the malignancy. Also get CT chest to evaluate for any chest mets. * #Leucocytosis: * Urine cultures grew Pseudomonas. She is on meropenem. wbc is 12.5 today. * Today is Day 8 of meropenem. However, since wbc is still elevated, will continue for a 10 day course. * Today completes the 10-day course. #Anemia: this is chronic. Hb seems to be at baseline. Will monitor. #Hyperkalemia: Resolved. #Thrombocytosis: stable. Will monitor #Hypothyroidism: on synthroid # History of DVT and PE: On therapeutic Lovenox. #Debility and weakness PT OT on board. Uses wheeled walker at her [facility] #Right eye infection: Has been on eyedrops, continue. #History of DAVY: On BiPAP as needed #Type 2 diabetes mellitus with neuropathy: On insulin sliding scale. Checks ACHS. On gabapentin #Hyperlipidemia: On statin Depression and anxiety: On trazodone and citalopram #COPD: not in exacerbation. Breathing treatment with bronchodilators. Class III obesity: BMI is 49.6. Complicates acute care, expected recovery and prognosis. DVT prophylaxis: on therapeutic lovenox. Resume home Eliquis today. Disposition: Anticipated discharge back home by tomorrow Charges/Coding Visit Charges Inpatient E&M: 23966 Subs Hosp L2
[2024-10-06] MEDS: GANCICLOVIR OPHTHALMIC ×2 (18:16→21:29)
[2024-10-06] MEDS: Fluticasone 0.05% 1 SPRAY NASAL.SRY 2 SPRAY NASAL (21:28)
[2024-10-07] VITALS (8 sets, daily range): BP systolic 111–127; BP diastolic 82–87; PULSE 87–113; RESP 14–20; TEMP 36.6–36.8; O2SAT 91–96
[2024-10-07] MEDS: GANCICLOVIR OPHTHALMIC ×5 (05:43→21:23)
[2024-10-07] MEDS: Meropenem 500 MG in 0.9% Normal Saline (50mL MB+) 50 ML 100 MG IV ×3 (05:44→21:25)
[2024-10-07 06:47] LABS: Hematocrit 31.5 % (37-47); Hemoglobin 10.1 g/dL (12.0-15.0); Immature Granulocytes Count 0.170 X10^3/uL (0.0-0.0); Mean Corp Hgb Conc 32.1 g/dL (32-36); Mean Corpuscular Volume 93.2 fL (81-99); Mean Platelet Vol. 9.6 fl (6.2-12.0); NRBC Flagged by Analyzer 0.2 % (0-5); Platelet Count 477 K/mm3 (150-450); RBC Distribution Width CV 16.6 % (11.6-14.6); RBC Distribution Width SD 56.0 fl (35.1-43.9); Red Blood Count 3.38 M/mm3 (4.2-5.4); White Blood Count 11.2 K/mm3 (4.4-11.0)
[2024-10-07 07:05] LABS: Anion Gap 10 (5-15); BUN 6 mg/dL (4-19); BUN/Creat Ratio 6.0 RATIO (10-20); Calcium,Total 8.4 mg/dL (7.6-11.0); Carbon Dioxide 26.2 mmol/L (21.0-32.0); Chloride 98 mmol/L (98-108); Estimated Creatinine Clearance 81.17 ml/min (50-250); Glucose 89 mg/dL (70-99); Potassium 4.3 mmol/L (3.3-5.1)
[2024-10-07] MEDS: Albuterol 2.5 MG/3 ML VIAL.NEB. INHALATION ×2 (07:22→19:12)
[2024-10-07] MEDS: Budesonide Respules 0.5 MG/2 ML AMPUL.NEB. INHALATION ×2 (07:22→19:12)
[2024-10-07] MEDS: Polyethylene Glycol 3350 17 GM PACKET PO (08:37)
--- NOTE | 2024-10-07 10:27 | PN_ITS ---
Subjective Subjective Patient seen and examined. She is complaining of abdominal pain. She denied any fever, chills, cough, chest pain, palpitations, nausea, vomiting or any other symptoms. Review of systems is otherwise negative. Objective Data Objective Data Vital Signs: Vital Signs Temp Pulse Resp BP Pulse Ox O2 Del Method O2 Flow Rate 97.8 F 95 16 127/86 H 95 Room Air 2 10/07/24 08:00 10/07/24 08:00 10/07/24 08:00 10/07/24 08:00 10/07/24 08:00 10/07/24 08:00 10/01/24 09:32 FiO2 21 10/06/24 08:55 Oxygen Flow Rate (L/min) 2 Oxygen Delivery Method Room Air Weight: 290 lb 9.108 oz Body Mass Index (BMI) 49.6 Intake & Output: Intake and Output for Last 24 Hours 10/05/24 10/06/24 10/07/24 23:59 23:59 23:59 Intake Total 856 / 856 150 / 150 50 / 50 Output Total 2240 / 2240 Balance -1384 / -1384 150 / 150 50 / 50 Lab / Micro Data 10/07/24 06:19 10/07/24 06:19 Labs: Laboratory Results - last 24 hr 10/06/24 12:41: POC Glucose 103 10/06/24 16:01: POC Glucose 110 H 10/06/24 20:31: POC Glucose 128 H 10/07/24 06:19: WBC 11.2 H, RBC 3.38 L, Hgb 10.1 L, Hct 31.5 L, MCV 93.2, MCH 29.9, MCHC 32.1, RDW Std Deviation 56.0 H, RDW Coeff of Alfredo 16.6 H, Plt Count 477 H, MPV 9.6, Immature Gran % (Auto) 1.500 H, Neut % (Auto) 71.3 H, Lymph % (Auto) 14.5 L, [place] % (Auto) 11.5 H, Eos % (Auto) 0.7, Baso % (Auto) 0.5, A bsolute Neuts (auto) 8.0 H, Absolute Lymphs (auto) 1.62, Nucleated RBC % 0.2, Sodium 134, Potassium 4.3, Chloride 98, Carbon Dioxide 26.2, Anion Gap 10, BUN 6, Creatinine 1.07, Estim Creat Clear Calc 81.17, Est GFR (MDRD) Non-Af 62, B UN/Creatinine Ratio 6.0 L, Glucose 89, Calcium 8.4 10/07/24 06:38: POC Glucose 98 Micro: Microbiology 10/02/24 13:55 Fluid - Ascites Gram Stain - Final 10/02/24 13:55 Fluid - Ascites Body Fluid Culture - Final Culture exhibits no growth. 10/02/24 13:55 Fluid - Ascites Anaerobic Culture - Preliminary No growth in 48 hours. 09/27/24 17:04 Urine, Clean Catch Urine Culture - Final Pseudomonas aeruginosa Radiography Diagnostic Testing: Radiology Impression Abdomen MRI 10/06/24 07:47 IMPRESSION: 1. Large mass primarily in segment 4 of the liver measuring up to 9.1 cm. This was recently sampled. Recommend correlation with pathology results. This is not particularly specific by imaging. Liver appears non cirrhotic grossly. Correlate with pathology specimen for features of cirrhosis if there is high pretest probability for cirrhosis. There is ascites but the patient has a history of underlying renal dysfunction. No splenomegaly. 2. Subcentimeter lesions seen by diffusion-weighted imaging segment 7. Continued surveillance suggested. 3. Small gallstones. 4. Parapelvic renal cysts. Bosniak 1. No follow-up required. No collecting system dilation. Mild cortical thinning. Reading Location: [facility] Chest/Abdomen/Pelvis CT 10/06/24 09:53 IMPRESSION: CT chest: 1. Limited evaluation. No large pulmonary mass or thoracic lymphadenopathy. 2. Mild cardiomegaly and interlobular septal thickening, which can be seen with CHF/volume overload. CT abdomen/pelvis: 1. Unchanged ill-defined right anterior hepatic lobe mass, compatible with primary hepatic neoplasm or metastases. Correlation with recent biopsy results recommended. Additional moderate volume ascites and periportal lymph nodes, of indeterminate etiology. Diagnostic and therapeutic paracentesis may be useful for further evaluation. 2. Omental thickening, concerning for omental metastases. 3. Asymmetric thickening and edema of the left lateral abdominal wall, which may be secondary to patient positioning and dependent ascites. However findings can also be seen with abdominal wall hematoma. Correlation with hemoglobin recommended. Reading Location: [facility] Physical Exam Const alert, oriented x3 and no apparent distress Constitutional Narrative: class III obesity, patient restless t General Appearance: cooperative Orientation / Consciousness: lethargic HEENT normocephalic, head/scalp atraumatic, hearing grossly normal bilaterally, nasal mucous membranes and turbinates normal and moist oral mucous membranes Eyes PERRL, EOMs intact bilaterally and conjunctivae normal Neck full ROM, no lymphadenopathy and supple Neck Narrative: neck is very short and thick Lymph Lymphatic: no lymphedema noted Chest inspection of chest normal Resp normal respiratory effort, normal air movement, no retractions, no use of accessory muscles and clear to auscultation bilaterally Cardio regular rate, regular rhythm, S1 normal heart sound and S2 normal heart sound GI GI Narrative: obese abdomen, dressing over RUQ (liver area), positive fluid thrill, RUQ tenderness, no guarding or rebound tenderness. Difficult to palpate organomegaly due to abdominal distension and obesity. It appears ascites has recurred. Back/Spine normal ROM Extremity full ROM and normal capillary refill Extremity Narrative: Bilateral lower extremity chronic edema, no cyanosis or clubbing General Extremity: no tenderness to palpation of joints or extremities Skin no rashes or lesions noted General Skin Exam: no breakdown Neuro oriented x3, moves all extremities and no focal motor deficits Neuro Narrative: patient alert, communicative, but weak. Speech: speech normal Motor Exam: general weakness Psych mental status grossly normal, thought process normal, cooperative and affect normal Psych Narrative: patient weak, moves all extremities. 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 * abdomen still distended with positive fluid thrill and appears even more distended today * Fluid cytology from previous paracentesis shows atypical cells, but no evidence of malignancy * tumor markers elevated. CA 19-9 elevated at 104, Ca 125 also elevated at 188. CEA antigen is only minimally elevated at 5.4. * Pathology report came back with biopsy showing liver cancer of the left lobe. Further characterization with immunohistochemistry is pending. * oncology and gastroenterology consulted in light of the elevated tumor markers. Liver biopsy pathology report pending * Oncology reviewed her according to the nurse practitioner that because there were no pathology report results back and they wish for patient follow-up on outpatient basis. * GI on board and recommended liver MRI to better characterize the malignancy. Also get CT chest to evaluate for any chest mets. * Liver MRI showed large mass in segment 4 of the liver measuring up to 9.1 cm and liver appears noncirrhotic grossly. Subcentimeter lesions seen. There are small gallstones in parapelvic renal cysts. * will get another therapeutic paracentesis tomorrow as it seems her abdomen filled up quite quickly again. * #Leucocytosis: * Urine cultures grew Pseudomonas. * completed a 10 day course of meropenem. * #Anemia: this is chronic. Hb seems to be at baseline. Will monitor. #Hyperkalemia: Resolved. #Thrombocytosis: stable. Will monitor #Hypothyroidism: on synthroid # History of DVT and PE: On therapeutic Lovenox. #Debility and weakness PT OT on board. Uses wheeled walker at her [facility] #Right eye infection: Has been on eyedrops, continue. #History of DAVY: On BiPAP as needed #Type 2 diabetes mellitus with neuropathy: On insulin sliding scale. Checks ACHS. On gabapentin #Hyperlipidemia: On statin Depression and anxiety: On trazodone and citalopram #COPD: not in exacerbation. Breathing treatment with bronchodilators. Class III obesity: BMI is 49.6. Complicates acute care, expected recovery and prognosis. DVT prophylaxis: on therapeutic lovenox. Resume home Eliquis afte paracentesis tomorrow Disposition: Anticipated discharge back home tomorrow after paracentesis. Charges/Coding Visit Charges Inpatient E&M: 59131 Subs Hosp L2
[2024-10-07] MEDS: 0.9% Saline Lock 10 ML Syringe IV ×3 (12:22→21:25)
[2024-10-07] MEDS: Fluticasone 0.05% 1 SPRAY NASAL.SRY 2 SPRAY NASAL (21:24)
[2024-10-08] VITALS (10 sets, daily range): BP systolic 104–129; BP diastolic 64–94; PULSE 90–105; RESP 14–18; TEMP 36.4–37.2; O2SAT 92–98
[2024-10-08] MEDS: 0.9% Saline Lock 10 ML Syringe IV ×3 (05:57→21:36)
[2024-10-08] MEDS: Meropenem 500 MG in 0.9% Normal Saline (50mL MB+) 50 ML 100 MG IV ×2 (05:58→15:08)
[2024-10-08] MEDS: GANCICLOVIR OPHTHALMIC ×5 (06:02→21:42)
--- NOTE | 2024-10-08 06:30 | US_ITS ---
PROCEDURE: PARACENTESIS WITH US 10/08/2024 REASON FOR EXAM: ASCITES TECHNIQUE: PARACENTESIS WITH US. The procedure as well as the benefits and possible complications including infection and bleeding were explained to the patient. Informed consent was obtained. The right upper quadrant was prepped and draped in the usual sterile fashion. Following local anesthetic application, a 5 Wolof catheter was placed into the peritoneal space. 2550 mL of hakeem colored fluid was aspirated. The patient tolerated the procedure well. COMPARISON: October 05, 2024 FINDINGS: Successful ultrasound-guided paracentesis. US/Paracentesis with US IMPRESSION: Successful ultrasound-guided paracentesis with removal of 2550 mL of hakeem colo red fluid. The patient tolerated the procedure well. Reading Location: [place] [id number]
[2024-10-08] MEDS: Albuterol 2.5 MG/3 ML VIAL.NEB. INHALATION ×3 (06:47→19:43)
[2024-10-08] MEDS: Budesonide Respules 0.5 MG/2 ML AMPUL.NEB. INHALATION ×2 (06:47→19:43)
[2024-10-08 07:24] LABS: Hematocrit 32.3 % (37-47); Hemoglobin 10.5 g/dL (12.0-15.0); Immature Granulocytes Count 0.200 X10^3/uL (0.0-0.0); Mean Corp Hgb Conc 32.5 g/dL (32-36); Mean Corpuscular Volume 94.7 fL (81-99); Mean Platelet Vol. 10.4 fl (6.2-12.0); NRBC Flagged by Analyzer 0.1 % (0-5); POSITIVE COUNT YES; RBC Distribution Width CV 16.9 % (11.6-14.6); RBC Distribution Width SD 57.1 fl (35.1-43.9); Red Blood Count 3.41 M/mm3 (4.2-5.4); White Blood Count 13.4 K/mm3 (4.4-11.0)
[2024-10-08 07:43] LABS: Anion Gap 14 (5-15); BUN 8 mg/dL (4-19); BUN/Creat Ratio 7.2 RATIO (10-20); Calcium,Total 8.0 mg/dL (7.6-11.0); Carbon Dioxide 16.8 mmol/L (21.0-32.0); Chloride 98 mmol/L (98-108); Estimated Creatinine Clearance 82.71 ml/min (50-250); Glucose 103 mg/dL (70-99); Potassium 4.5 mmol/L (3.3-5.1)
[2024-10-08 07:44] LABS: Differential Indicated SCAN CRITERIA MET
[2024-10-08] MEDS: 0.9% Normal Saline (1000mL) 1,000 ML 125 ML IV (10:00)
--- NOTE | 2024-10-08 10:45 | CASEMGMT ---
Addendum entered by Juana Ramirez 10/08/24 13:36: Received notification from [facility] that they cannot accept pt. Pt nurse expressed concerns with pt returning home. Pt nurse, INEZ SHORE , pt mother and pt had discussion concerning pt care. Pt states she is worried she will lose her food stamps. Pt is aware this is for a short term stay at SNF. Pt mother states she cannot care for pt by herself. Pt reluctantly agreed for a referral to be sent to [facility] at this time. Pt would like a list of other options if they cannot accept. Requested dc clinical education assistant make referral at this time. Addendum entered by Juana Ramirez 10/08/24 12:56: Received tc from [facility], she states they cannot accept pt for care. Addendum entered by Juana Ramirez 10/08/24 11:45: [facility] declined pt for services. Addendum entered by Juana Ramirez 10/08/24 11:19: Provided pt with a list of [facility] agencies that dc clinical education assistant created. Pt chose 1. [facility] 2. [facility] 3. [facility] 4. [facility]. Referrals sent to the following agencies at this time. Addendum entered by Juana Ramirez 10/08/24 11:06: Received notification from [facility] that they cannot accept pt d/t staffing. Requested dc assistance prepare a list of other options for [facility]. Original Note: INEZ SHORE into pt room, pt A&0x3, discussed dc planning with pt. Pt states that she would like to go home with [facility] and her mother's assistance. Pt would like [facility] and denies need for a list of other options. Pt states she has been to [facility] in the past but does not feel she needs to go back. TC to pt mother, Nadeen, she states she is too old to care for pt and it is hard on her. INEZ SHORE back into pt room, pt made aware that mother is not able to assist. Pt asks INEZ SHORE to call mother. Call back to pt mother on speaker, pt mother agreed to assist pt if [facility] is seeing her. Made her aware that is the plan. She states she is not sure of how much assistance she can provide, but she will try. Referral sent to [facility] for SN, PT and OT. Plan for pt to dc today. Will await decision to accept.
[2024-10-08] MEDS: Lidocaine 2% (20 ml mdv) 20 ML Vial INFILT (14:15)
--- NOTE | 2024-10-08 14:45 | CASEMGMT ---
Discharge Planning Referral sent to [facility]. Ena Kaur DC Planning Asst.
--- NOTE | 2024-10-08 15:28 | PN_ITS ---
Subjective Subjective Patient seen and examined. He was still complaining of some epigastric and right upper quadrant pain. Review of symptoms otherwise negative. He is due for paracentesis today. Patient now wants to be placed in a snf facility. Case management on board. Objective Data Objective Data Vital Signs: Vital Signs Temp Pulse Resp BP Pulse Ox O2 Del Method O2 Flow Rate 99 F 99 18 119/81 H 97 Room Air 2 10/08/24 15:14 10/08/24 15:14 10/08/24 15:14 10/08/24 15:14 10/08/24 15:14 10/08/24 15:14 10/01/24 09:32 FiO2 21 10/07/24 22:31 Oxygen Flow Rate (L/min) 2 Oxygen Delivery Method Room Air Weight: 290 lb 9.108 oz Body Mass Index (BMI) 49.6 Intake & Output: Intake and Output for Last 24 Hours 10/06/24 10/07/24 10/08/24 23:59 23:59 23:59 Intake Total 150 / 150 150 / 150 443.75 / 443.75 Output Total 2250 / 2250 Balance 150 / 150 150 / 150 -1806.25 / -1806.25 Lab / Micro Data 10/08/24 07:10 10/08/24 07:10 Labs: Laboratory Results - last 24 hr 10/07/24 16:24: POC Glucose 112 H 10/07/24 21:27: POC Glucose 128 H 10/08/24 06:03: POC Glucose 112 H 10/08/24 07:10: WBC 13.4 H, RBC 3.41 L, Hgb 10.5 L, Hct 32.3 L, MCV 94.7, MCH 30.8, MCHC 32.5, RDW Std Deviation 57.1 H, RDW Coeff of Alfredo 16.9 H, Plt Count , MPV 10.4, Immature Gran % (Auto) 1.500 H, Neut % (Auto) 74.0 H, Lymph % (Auto) 13.5 L, [place] % (Auto) 9.7, Eos % (Auto) 0.9, Baso % (Auto) 0.4, Absolute Neuts (auto) 9.9 H, Absolute Lymphs (auto) 1.81, Nucleated RBC % 0.1, Platelet Estimate SLT INC, Sodium 128 L, Potassium 4.5, Chloride 98, Carbon Dioxide 16.8 L, Anion Gap 14, BUN 8, Creatinine 1.05, Estim Creat Clear Calc 82.71, Est GFR (MDRD) Non-Af 63, BUN/Creatinine Ratio 7.2 L, Glucose 103 H, Calcium 8.0 10/08/24 11:08: POC Glucose 117 H Micro: Microbiology 10/02/24 13:55 Fluid - Ascites Gram Stain - Final 10/02/24 13:55 Fluid - Ascites Body Fluid Culture - Final Culture exhibits no growth. 10/02/24 13:55 Fluid - Ascites Anaerobic Culture - Final No growth in 5 days. 09/27/24 17:04 Urine, Clean Catch Urine Culture - Final Pseudomonas aeruginosa Radiography Diagnostic Testing: Radiology Impression Paracentesis Ultrasound 10/08/24 06:30 IMPRESSION: Successful ultrasound-guided paracentesis with removal of 2550 mL of hakeem colored fluid. The patient tolerated the procedure well. Reading Location: [place] [id number] Physical Exam Const alert, oriented x3, no apparent distress and well nourished; Negative for average body habitus or healthy appearing Constitutional Narrative: class III obesity, patient restless t General Appearance: cooperative Orientation / Consciousness: lethargic HEENT normocephalic, head/scalp atraumatic, hearing grossly normal bilaterally, nasal mucous membranes and turbinates normal and moist oral mucous membranes Eyes EOMs intact bilaterally and conjunctivae normal Neck full ROM and supple Neck Narrative: neck is very short and thick Lymph Lymphatic: no lymphedema noted Chest inspection of chest normal Resp normal air movement Resp Narrative: mildly diminished breath sounds bibasally, no wheezes or crackles. On room air. Cardio regular rate, regular rhythm, S1 normal heart sound, S2 normal heart sound and no murmurs GI normal to inspection, nondistended, normoactive bowel sounds, soft to palpation and non-tender GI Narrative: obese abdomen, dressing over RUQ (liver area), positive fluid thrill, RUQ tenderness, no guarding or rebound tenderness. Difficult to palpate organomegaly due to abdominal distension and obesity. Back/Spine normal ROM Extremity full ROM, normal capillary refill, no clubbing, cyanosis or edema and no calf tenderness Extremity Narrative: Bilateral lower extremity chronic edema, no cyanosis or clubbing General Extremity: no tenderness to palpation of joints or extremities Skin no rashes or lesions noted General Skin Exam: no breakdown Neuro oriented x3, moves all extremities and no focal motor deficits Neuro Narrative: patient alert, communicative, but weak. Speech: speech normal Motor Exam: general weakness Psych Psych Narrative: patient weak, moves all extremities. 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 * Fluid cytology from previous paracentesis shows atypical cells, but no evidence of malignancy * tumor markers elevated. CA 19-9 elevated at 104, Ca 125 also elevated at 188. CEA antigen is only minimally elevated at 5.4. * Pathology report came back with biopsy showing liver cancer of the left lobe. Further characterization with immunohistochemistry is still pending. Per oncology, they need the IHC results to determine treatment modalities. This is still pending. * oncology and gastroenterology consulted in light of the elevated tumor markers. * Oncology reviewed her according to the nurse practitioner that because there were no IHC results back and they wish for patient follow-up on outpatient basis. * GI on board and recommended liver MRI to better characterize the malignancy. Also get CT chest to evaluate for any chest mets. * Liver MRI showed large mass in segment 4 of the liver measuring up to 9.1 cm and liver appears noncirrhotic grossly. Subcentimeter lesions seen. There are small gallstones in parapelvic renal cysts. * for paracentesis today. * #Leucocytosis: * Urine cultures grew Pseudomonas. * completed a 10 day course of meropenem. Dc'd today as patient has completed 10 days of meropenem * #Anemia: this is chronic. Hb seems to be at baseline. Will monitor. #Hyperkalemia: Resolved. #Thrombocytosis: stable. Will monitor #Hypothyroidism: on synthroid # History of DVT and PE: On therapeutic Lovenox. #Debility and weakness PT OT on board. Uses wheeled walker at her halfway #Right eye infection: Has been on eyedrops, continue. #History of DAVY: On BiPAP as needed #Type 2 diabetes mellitus with neuropathy: On insulin sliding scale. Checks ACHS. On gabapentin #Hyperlipidemia: On statin Depression and anxiety: On trazodone and citalopram #COPD: not in exacerbation. Breathing treatment with bronchodilators. Class III obesity: BMI is 49.6. Complicates acute care, expected recovery and prognosis. DVT prophylaxis: on therapeutic lovenox. Resume home Eliquis after paracentesis today Disposition: patient now wants to be discharged to SNF. Awaiting placement. Case management on board to help with placement. Charges/Coding Visit Charges Inpatient E&M: 31410 Subs Hosp L2
--- NOTE | 2024-10-08 16:00 | CASEMGMT ---
Pt is accepted by [facility] and precert will be started today.
[2024-10-08] MEDS: Fluticasone 0.05% 1 SPRAY NASAL.SRY 2 SPRAY NASAL (21:41)
[2024-10-08] MEDS: APIXABAN 5 MG TABLET PO (21:48)
[2024-10-09] VITALS (9 sets, daily range): BP systolic 115–130; BP diastolic 68–83; PULSE 80–107; RESP 15–20; TEMP 36.6–37.1; O2SAT 93–97
[2024-10-09] MEDS: GANCICLOVIR OPHTHALMIC ×5 (06:24→21:35)
[2024-10-09] MEDS: Albuterol 2.5 MG/3 ML VIAL.NEB. INHALATION ×3 (07:35→20:36)
[2024-10-09] MEDS: Budesonide Respules 0.5 MG/2 ML AMPUL.NEB. INHALATION ×2 (07:35→20:36)
--- NOTE | 2024-10-09 08:33 | CASEMGMT ---
TC to therapy to request OT eval first thing for insurance purposes for SNF, spoke with Kaylen.
[2024-10-09] MEDS: APIXABAN 5 MG TABLET PO ×2 (08:51→21:34)
[2024-10-09] MEDS: Fluticasone 0.05% 1 SPRAY NASAL.SRY 2 SPRAY NASAL (08:52)
--- NOTE | 2024-10-09 12:40 | CASEMGMT ---
Discharge Planning Updates sent to [facility]. [facility] remains pending. Ena Kaur DC Planning Asst.
--- NOTE | 2024-10-09 15:25 | CASEMGMT ---
Discharge Planning Pt has been denied skilled stay. [facility] asked to submit for an ILOC. Ena Kaur DC Planning Asst.
--- NOTE | 2024-10-09 15:49 | CASEMGMT ---
Social Work- SW met with pt, pt mom, pt son's ex-girlfriend, and son's ex-girlfriend's mom to discuss d/c planning with RNCM. SW discussed intermediate LOC vs skilled, which pt was denied authorization for. SW provided education on palliative vs hospice, as well as supports available. Pt concerned about losing social security check and benefits. SW discussed pt care needs at this time and provided guidance through conversation regarding benefits and needs during placement. Pt agreeable to palliative referral and seeking intermediate authorization. SW provided [facility] [facility] card and offered support to mom, who was very tearful. EVAN White
--- NOTE | 2024-10-09 17:20 | PN_ITS ---
Subjective Subjective Patient seen and examined. She had paracentesis yesterday with removal of 2.55 L of fluid. Still complaining of right upper quadrant pain. Review of systems otherwise negative. Replacement in [facility] was denied by insurance. Family not comfortable with her going home and patient wanted to go home. However now she is willing to try for an intermediate placement. Case management on board to help facilitate this. Objective Data Objective Data Vital Signs: Vital Signs Temp Pulse Resp BP Pulse Ox O2 Del Method O2 Flow Rate 98.6 F 107 H 18 127/80 H 97 Room Air 2 10/09/24 15:38 10/09/24 15:38 10/09/24 15:38 10/09/24 15:38 10/09/24 15:38 10/09/24 15:38 10/01/24 09:32 FiO2 21 10/09/24 03:10 Oxygen Flow Rate (L/min) 2 Oxygen Delivery Method Room Air Weight: 290 lb 9.108 oz Body Mass Index (BMI) 49.6 Intake & Output: Intake and Output for Last 24 Hours 10/07/24 10/08/24 10/09/24 23:59 23:59 23:59 Intake Total 150 / 150 1100.00 / 1100.00 Output Total 2250 / 2250 Balance 150 / 150 -1150.00 / -1150.00 Lab / Micro Data 10/08/24 07:10 10/08/24 07:10 Labs: Laboratory Results - last 24 hr 10/08/24 16:57: POC Glucose 119 H 10/08/24 21:44: POC Glucose 119 H 10/09/24 06:39: POC Glucose 97 10/09/24 11:34: POC Glucose 121 H 10/09/24 16:42: POC Glucose 129 H Micro: Microbiology 10/02/24 13:55 Fluid - Ascites Gram Stain - Final 10/02/24 13:55 Fluid - Ascites Body Fluid Culture - Final Culture exhibits no growth. 10/02/24 13:55 Fluid - Ascites Anaerobic Culture - Final No growth in 5 days. 09/27/24 17:04 Urine, Clean Catch Urine Culture - Final Pseudomonas aeruginosa Physical Exam Const alert, oriented x3 and no apparent distress Constitutional Narrative: class III obesity, patient restless t General Appearance: cooperative HEENT normocephalic, head/scalp atraumatic, hearing grossly normal bilaterally, nasal mucous membranes and turbinates normal and moist oral mucous membranes Eyes PERRL, EOMs intact bilaterally and conjunctivae normal Neck full ROM, no lymphadenopathy and supple Neck Narrative: neck is very short and thick Lymph Lymphatic: no lymphedema noted Chest inspection of chest normal Resp normal respiratory effort, normal air movement, no retractions, no use of accessory muscles and clear to auscultation bilaterally Cardio regular rate, regular rhythm, S1 normal heart sound, S2 normal heart sound, no murmurs, no rub, no gallops, no clicks and peripheral pulses 2+ throughout GI normal to inspection, nondistended, normoactive bowel sounds and soft to palpation GI Narrative: obese abdomen, dressing over RUQ (liver area), positive fluid thrill, RUQ tenderness, no guarding or rebound tenderness. Difficult to palpate organomegaly due to abdominal distension and obesity. Back/Spine normal ROM Extremity full ROM, normal capillary refill, no clubbing, cyanosis or edema and no calf tenderness General Extremity: no tenderness to palpation of joints or extremities Skin no rashes or lesions noted General Skin Exam: no breakdown Neuro oriented x3 and moves all extremities Neuro Narrative: patient alert, communicative, but weak. Speech: speech normal Motor Exam: general weakness Psych Psych Narrative: patient weak, moves all extremities. 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 * Fluid cytology from previous paracentesis shows atypical cells, but no evidence of malignancy * tumor markers elevated. CA 19-9 elevated at 104, Ca 125 also elevated at 188. CEA antigen is only minimally elevated at 5.4. * Pathology report came back with biopsy showing liver cancer of the left lobe. Further characterization with immunohistochemistry is still pending. Per oncology, they need the IHC results to determine treatment modalities. This is still pending. * oncology and gastroenterology consulted in light of the elevated tumor markers. * Oncology reviewed her according to the nurse practitioner that because there were no IHC results back and they wish for patient follow-up on outpatient basis. * GI on board and recommended liver MRI to better characterize the malignancy. Also get CT chest to evaluate for any chest mets. * Liver MRI showed large mass in segment 4 of the liver measuring up to 9.1 cm and liver appears noncirrhotic grossly. Subcentimeter lesions seen. There are small gallstones in parapelvic renal cysts. * had her 4th paracentesis during this admission with removal of 2.55L of ofluid yesterday * #Leucocytosis: * Urine cultures grew Pseudomonas. * completed a 10 day course of meropenem. * #Anemia: this is chronic. Hb seems to be at baseline. Will monitor. #Hyperkalemia: Resolved. #Thrombocytosis: stable. Will monitor #Hypothyroidism: on synthroid # History of DVT and PE: On therapeutic Lovenox. #Debility and weakness PT OT on board. Uses wheeled walker at her usp #Right eye infection: Has been on eyedrops, continue. #History of DAVY: On BiPAP as needed #Type 2 diabetes mellitus with neuropathy: On insulin sliding scale. Checks ACHS. On gabapentin #Hyperlipidemia: On statin Depression and anxiety: On trazodone and citalopram #COPD: not in exacerbation. Breathing treatment with bronchodilators. Class III obesity: BMI is 49.6. Complicates acute care, expected recovery and prognosis. DVT prophylaxis: on therapeutic lovenox. Resume home Eliquis after paracentesis today Disposition: patient now wants to be discharged to SNF. Insurance denied pre- CERT for [facility] placement. Case management now helping facilitate placement in intermediate care facility as family is not comfortable with patient going home though patient does want to go home. Charges/Coding Visit Charges Inpatient E&M: 52319 Subs Hosp L2
[2024-10-09 17:23] LABS: Hematocrit 36.8 % (37-47); Hemoglobin 11.4 g/dL (12.0-15.0); Immature Granulocytes Count 0.200 X10^3/uL (0.0-0.0); Mean Corp Hgb Conc 31.0 g/dL (32-36); Mean Corpuscular Volume 96.3 fL (81-99); Mean Platelet Vol. 9.7 fl (6.2-12.0); NRBC Flagged by Analyzer 0.1 % (0-5); Platelet Count 553 K/mm3 (150-450); RBC Distribution Width CV 17.1 % (11.6-14.6); RBC Distribution Width SD 59.4 fl (35.1-43.9); Red Blood Count 3.82 M/mm3 (4.2-5.4); White Blood Count 15.4 K/mm3 (4.4-11.0)
[2024-10-09 17:52] LABS: Anion Gap 14 (5-15); BUN 9 mg/dL (4-19); BUN/Creat Ratio 8.0 RATIO (10-20); Calcium,Total 8.3 mg/dL (7.6-11.0); Carbon Dioxide 17.4 mmol/L (21.0-32.0); Chloride 99 mmol/L (98-108); Estimated Creatinine Clearance 79.68 ml/min (50-250); Glucose 141 mg/dL (70-99); Potassium 4.2 mmol/L (3.3-5.1)
[2024-10-09] MEDS: 0.9% Saline Lock 10 ML Syringe IV (21:45)
[2024-10-10 04:30] VITALS: BP 123/82; PULSE 89; RESP 18; TEMP 36.9; O2SAT 95
[2024-10-10] MEDS: GANCICLOVIR OPHTHALMIC ×3 (05:20→13:18)
[2024-10-10] MEDS: 0.9% Saline Lock 10 ML Syringe IV (05:57)
[2024-10-10 07:26] LABS: Hematocrit 35.4 % (37-47); Hemoglobin 11.4 g/dL (12.0-15.0); Immature Granulocytes Count 0.130 X10^3/uL (0.0-0.0); Mean Corp Hgb Conc 32.2 g/dL (32-36); Mean Corpuscular Volume 92.4 fL (81-99); Mean Platelet Vol. 9.3 fl (6.2-12.0); NRBC Flagged by Analyzer 0 % (0-5); Platelet Count 540 K/mm3 (150-450); RBC Distribution Width CV 16.6 % (11.6-14.6); RBC Distribution Width SD 55.6 fl (35.1-43.9); Red Blood Count 3.83 M/mm3 (4.2-5.4); White Blood Count 14.5 K/mm3 (4.4-11.0)
[2024-10-10 07:45] VITALS: PULSE 98; RESP 20; O2SAT 94
[2024-10-10 08:08] LABS: Anion Gap 12 (5-15); BUN 10 mg/dL (4-19); BUN/Creat Ratio 8.8 RATIO (10-20); Calcium,Total 8.6 mg/dL (7.6-11.0); Carbon Dioxide 22.5 mmol/L (21.0-32.0); Chloride 97 mmol/L (98-108); Estimated Creatinine Clearance 77.54 ml/min (50-250); Glucose 130 mg/dL (70-99); Potassium 4.4 mmol/L (3.3-5.1)
--- NOTE | 2024-10-10 09:06 | CASEMGMT ---
Late entry for 10/09/24- Charge nurse notified for orders for paracentesis as an outpt. Dr. Parra's office to send order to radiology. SNF will need to call and schedule paracentesis once pt dc'd. Discussed with hospitalist. SW aware as well as pt and mother.
--- NOTE | 2024-10-10 10:02 | CASEMGMT ---
Referral placed for palliative care and email sent to [facility] at this time.
[2024-10-10] MEDS: APIXABAN 5 MG TABLET PO (10:23)
[2024-10-10] MEDS: Fluticasone 0.05% 1 SPRAY NASAL.SRY 2 SPRAY NASAL (10:24)
[2024-10-10 10:30] VITALS: BP 139/90; PULSE 96; RESP 16; TEMP 36.8; O2SAT 96
[2024-10-10] MEDS: Albuterol 2.5 MG/3 ML VIAL.NEB. INHALATION (10:44)
[2024-10-10] MEDS: Budesonide Respules 0.5 MG/2 ML AMPUL.NEB. INHALATION (10:45)
[2024-10-10 11:15] VITALS: PULSE 99; RESP 18
--- NOTE | 2024-10-10 11:20 | PN.GI_ITS ---
Subjective Subjective Patient resting quietly in bed, arouses easily and c/o sharp LUQ pain, loss of appetite and nausea. - loss of appetite - LUQ pain, sharp, for past few weeks, no change with PO intake; denies any RUQ pain - nausea without emesis - breakfast tray at bedside, only a few bites of omelet - denies any change in bowel habits Objective Data Objective Data Para 10/08/2024 2550 Para 10/05/2024 2440 Para 10/02/2024 5520 Para 09/27/2024 6970 - few atypical cells of undetermined significance; Albumin ascites 09/27/2024 1.9, serum 3.1 --> SAAG 1.2 Liver Biopsy 10/02/2024 mailgnant neoplasm, IHC pending CT chest: 10/06/2024 1. Limited evaluation. No large pulmonary mass or thoracic lymphadenopathy. 2. Mild cardiomegaly and interlobular septal thickening, which can be seen with CHF/volume overload. CT abdomen/pelvis: 10/06/2024 1. Unchanged ill-defined right anterior hepatic lobe mass, compatible with primary hepatic neoplasm or metastases. Correlation with recent biopsy results recommended. Additional moderate volume ascites and periportal lymph nodes, of indeterminate etiology. Diagnostic and therapeutic paracentesis may be useful for further evaluation. 2. Omental thickening, concerning for omental metastases. 3. Asymmetric thickening and edema of the left lateral abdominal wall, which may be secondary to patient positioning and dependent ascites. However findings can also be seen with abdominal wall hematoma. Correlation with hemoglobin recommended. - reproductive organs grossly unremarkable Liver MRI showed large mass in segment 4 of the liver measuring up to 9.1 cm and liver appears noncirrhotic grossly. Subcentimeter lesions seen. There are small gallstones in parapelvic renal cysts. CA19-9 elevated 104 CA125 elevated 188 CEA 5.4 AFP WNL Vital Signs: Vital Signs Temp Pulse Resp BP Pulse Ox O2 Del Method O2 Flow Rate 98.2 F 99 18 139/90 H 96 Room Air 2 10/10/24 10:30 10/10/24 11:15 10/10/24 11:15 10/10/24 10:30 10/10/24 10:30 10/10/24 10:30 10/01/24 09:32 FiO2 21 10/10/24 07:45 Oxygen Flow Rate (L/min) 2 Oxygen Delivery Method Room Air Weight: 290 lb 9.108 oz Body Mass Index (BMI) 49.6 Intake & Output: Intake and Output for Last 24 Hours 10/08/24 10/09/24 10/10/24 23:59 23:59 23:59 Intake Total 1100.00 / 1100.00 400 / 400 229 / 229 Output Total 2250 / 2250 Balance -1150.00 / -1150.00 400 / 400 229 / 229 Lab / Micro Data Attestation: I reviewed the patient's lab results. 10/10/24 07:12 10/10/24 07:12 Labs: Laboratory Results - last 24 hr 10/09/24 11:34: POC Glucose 121 H 10/09/24 16:42: POC Glucose 129 H 10/09/24 17:13: WBC 15.4 H, RBC 3.82 L, Hgb 11.4 L, Hct 36.8 L, MCV 96.3, MCH 29.8, MCHC 31.0 L, RDW Std Deviation 59.4 H, RDW Coeff of Alfredo 17.1 H, Plt Count 553 H, MPV 9.7, Immature Gran % (Auto) 1.300 H, Neut % (Auto) 78.9 H, Lymph % (Auto) 11.1 L, [place] % (Auto) 7.9, Eos % (Auto) 0.3, Baso % (Auto) 0.5, Absolute Neuts (auto) 12.2 H, Absolute Lymphs (auto) 1.71, Nucleated RBC % 0.1, Sodium 130 L, Potassium 4.2, Chloride 99, Carbon Dioxide 17.4 L, Anion Gap 14, BUN 9, Creatinine 1.09, Estim Creat Clear Calc 79.68, Est GFR (MDRD) Non-Af 60, B UN/Creatinine Ratio 8.0 L, Glucose 141 H, Calcium 8.3 10/09/24 21:39: POC Glucose 129 H 10/10/24 06:30: POC Glucose 119 H 10/10/24 07:12: WBC 14.5 H, RBC 3.83 L, Hgb 11.4 L, Hct 35.4 L, MCV 92.4, MCH 29.8, MCHC 32.2, RDW Std Deviation 55.6 H, RDW Coeff of Alfredo 16.6 H, Plt Count 540 H, MPV 9.3, Immature Gran % (Auto) 0.900, Neut % (Auto) 78.2 H, Lymph % (Auto) 10.1 L, [place] % (Auto) 9.7, Eos % (Auto) 0.6, Baso % (Auto) 0.5, Absolute Neuts (auto) 11.3 H, Absolute Lymphs (auto) 1.46, Nucleated RBC % 0, Sodium 132 L, Potassium 4.4, Chloride 97 L, Carbon Dioxide 22.5, Anion Gap 12, BUN 10, Creatinine 1.12, Estim Creat Clear Calc 77.54, Est GFR (MDRD) Non-Af 58 L, B UN/Creatinine Ratio 8.8 L, Glucose 130 H, Calcium 8.6 Micro: Microbiology 10/02/24 13:55 Fluid - Ascites Gram Stain - Final 10/02/24 13:55 Fluid - Ascites Body Fluid Culture - Final Culture exhibits no growth. 10/02/24 13:55 Fluid - Ascites Anaerobic Culture - Final No growth in 5 days. 09/27/24 17:04 Urine, Clean Catch Urine Culture - Final Pseudomonas aeruginosa Physical Exam Const alert and oriented x3 General Appearance: cooperative and well developed Nutritional Appearance: morbidly obese Resp Effort and Inspection: able to speak in complete sentences and symmetric chest movement GI GI Narrative: Abdomen is soft, non-distended, BS+ x4 Quad, LUQ tenderness with palpation, exam limited due to body habitus Extremity Extremity Narrative: RUE PICC Skin General Skin Exam: ecchymosis Assessment & Plan Assessment/Plan (1) Liver mass, left lobe: PLAN: Will await IHC from the liver biopsy to guide further management. If IHC is nondiagnostic, omental biopsy should be pursued to clarify the primary source, especially given peritoneal involvement. Follow-up with Oncology OP for ongoing management (2) Abdominal pain: QUALIFIERS: Abdominal location: left upper quadrant Qualified Code(s): R10.12 - Left upper quadrant pain PLAN: Plan 54y/o female with a large, ill-defined hepatic mass (segment 4, 9.1 cm) in a noncirrhotic liver, recurrent moderate-volume ascites, omental thickening, and periportal lymphadenopathy. Serial paracenteses have shown atypical cells of undetermined significance, and ascitic fluid analysis demonstrates a SAAG of 1.2. Labs reveal hypoalbuminemia (serum albumin 2.5), elevated CA19-9 (104), CA125 (188), and mildly elevated CEA (5.4), with normal AFP. Liver biopsy has confirmed malignant neoplasm, with immunohistochemistry (IHC) pending. Imaging of the chest is notable for mild cardiomegaly and interlobular septal thickening, but no pulmonary mass or thoracic lymphadenopathy; abdominal imaging shows unchanged hepatic mass, omental thickening, and moderate ascites, with grossly unremarkable reproductive organs. The leading differential diagnosis is intrahepatic cholangiocarcinoma, given the large hepatic mass, noncirrhotic background, elevated CA19-9, and imaging findings of omental/peritoneal involvement. Metastatic colorectal adenocarcinoma is also considered, supported by mild CEA elevation and peritoneal/omental metastases as common sites of spread. Other considerations include primary peritoneal or high-grade serous ovarian carcinoma (elevated CA125, ascites, omental thickening, but unremarkable reproductive organs), metastatic pancreatic or biliary tract adenocarcinoma (elevated CA19-9, but no pancreatic mass), and less likely, hepatocellular carcinoma (normal AFP, noncirrhotic liver). Will await IHC from the liver biopsy to guide further management. If IHC is nondiagnostic, omental biopsy should be pursued to clarify the primary source, especially given peritoneal involvement. Follow-up with Oncology OP is recommended.
--- NOTE | 2024-10-10 11:37 | CASEMGMT ---
Msg rec'd from [facility] that pt can admit today under correction care. RN CM updated. Ena Kaur DC Planning Asst.
--- NOTE | 2024-10-10 13:01 | CASEMGMT ---
Addendum entered by Juana Ramirez 10/10/24 13:57: Received confirmation from charge nurse that pt has an appt on Tuesday at 8:30am for a paracentesis. Order to be placed in packet. Original Note: Spoke with charge nurse who notified Dr. Parra as well as his office for need for paracentesis orders.
--- NOTE | 2024-10-10 14:12 | CASEMGMT ---
Pt friend came to desk requesting RN MONE come into room. Pt states she does not want to go to SNF. Pt is aware that she can go today and that was the plan as of yesterday. Pt states she is worried about her check. Reiterated what the SW stated yesterday. Pt then agreeable to go. Pt mother states she will let her go home before 30 days. Pt then agreeable. Pt is aware of paracentesis time on Tuesday. DC insurance underwriting assistant to notify facility. Pt denies further needs at this time.
--- NOTE | 2024-10-10 14:44 | DCINST_ITS ---
Discharge Instructions Follow Up Care Test Results: Test results from this visit will be discussed in further detail at your follow- up appointment, if applicable. Discharge Plan Admission Admit Date/Time: 09/29/24 13:25 Primary Reason for Your Visit: liver cancer Attending Provider: Daria Knight Primary Care Provider: Nasreen Sutton Consulting Providers: Eddy Jeronimo; Yakov Washington; Elda aMson; Renzo Wright; Ahsan Cee; Fran Velasquez; Denae Luna; Kiran Barahona; Floyd Yuen; Artie Frey; Costa Martinez; Alejandra Cruz FRETTED INSTRUMENTS INSPECTOR Instructions Patient Instructions: Cancer of the Liver Discharge Orders/Prescriptions Prescriptions: New oxycodone 5 mg Tablet 5 mg PO Q4H PRN PRN (Reason: Pain Score 6-10) 3 Days Qty: 18 0RF lactulose 10 gram/15 mL solution 20 g PO TID PRN PRN (Reason: constipation) Qty: 3000 2RF Rx Instructions: titrate until 2-3 loose stools daily. Continued Nurtec ODT 75 mg tablet,disintegrating 75 mg PO DAILY PRN (Reason: migraine) insulin lispro [Humalog KwikPen Insulin] 100 unit/mL Insulin Pen 1 sliding scale dose subcut ACHS Protocol: 2. Sliding Scale Insulin Low-Med Dosing Condition: 150-209 mg/dl = 1 unit Condition: 210-269 mg/dl = 2 units Condition: 270-329 mg/dl = 3 units Condition: 330-389 mg/dl = 4 units Condition: 390-449 mg/dl = 5 units Condition: Greater than 449 call physician Protocol Text: Suggested for: - Patients on Total Daily Insulin Dose of 28-36 units - Average body habitus patients LOW MEDIUM DOSING ALGORITHM citalopram 20 mg Tablet 40 mg PO DAILY Qty: 1 0RF diclofenac sodium 3 % gel 1 ea topical BID PRN PRN (Reason: pain (scale score 1-3)) cyclobenzaprine 5 mg tablet 5 mg PO QPM budesonide-formoterol [Symbicort] 160-4.5 mcg/actuation HFA aerosol inhaler 2 puff INHALATION BID lorazepam 0.5 mg tablet 0.5 mg PO TID PRN gabapentin 300 mg capsule 300 mg PO TID fluticasone propionate 50 mcg/actuation spray,suspension 2 spray INTRANASAL BID Zirgan 0.15 % gel 1 drp RIGHT EYE .COMPLEX Rx Instructions: 1 drp into the Right EYE 5x/day; Emgality Pen 120 mg/mL pen injector 120 mg SUBCUT QMONTH Patient Comments: INHALE 120 SUBCUTANEOUSLY (UNDER THE SKIN) 1 time a day EVERY 30 days FOR MIGRAINE moxifloxacin 0.5 % drops 1 drp RIGHT EYE Q2H dicyclomine 20 mg tablet 20 mg PO Q6H PRN PRN (Reason: abdominal discomfort) Qty: 12 0RF atorvastatin 40 mg tablet 40 mg PO QHS Qty: 90 3RF isosorbide mononitrate 30 mg tablet extended release 24 hr 30 mg PO DAILY Qty: 90 3RF levothyroxine 25 mcg capsule 25 mcg PO QDAY Rx Instructions: take 25mcg daily, in addition to 200mcg levothyroxine 200 mcg capsule 200 mcg PO QDAY Rx Instructions: take 200mcg daily, in addition to 25mcg Eliquis 5 mg tablet 5 mg PO BID Qty: 180 3RF losartan 100 mg tablet 100 mg PO QDAY Referrals / Follow Up: Nasreen Sutton MD [Primary Care Provider] - 10/08/24 8:40 am Denae Luna MD [Med Staff - Active Staff] - Within 1 Week Natalio Parra DO [Med Staff - Active Staff] - Within 1 Week Department,Radiology [Non-Staff] - 10/12/24 8:30 am (Please be at the Radiology department at [facility] on 10/12/24 at 8:30am for a paracentesis. ) Disposition Disposition (needs filled in before D/C Order can be placed): NonSkilled NH/Intermed Care
--- NOTE | 2024-10-10 14:55 | TREXTCAR_ITS ---
Diet Diet Order/Speech Therapy: INPATIENT Hospital Diet / Speech Therapy Order(s) 10/03/24 16:30 Diet: Cardiac: Calorie-Controlled Food consistency:: Regular Liquid Consistency:: Regular/Thin Dietary Modifications:: Gluten Free Diet Comments: no concentrated sweets, no reg pop, no carbonation, please cut up food How many daily calories?: 2000 calorie Routine Orders/Code Status Enema Type: Fleetz Enema Frequency: Daily PRN Suppository Type: Dulcolax 10mg Suppository Frequency: Daily PRN DC O2, CPAP, BIPAP needs Home O2 Discharge instructions: No Wound(s) R. Hand: Wound Type: old iv site left arm: Wound Type: Abrasion RUQ: Wound Type: Puncture mid epigastric area: Wound Type: Puncture Abd. Para site 10/05/24: Wound Type: Puncture RUQ Para. 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 * Fluid cytology from previous paracentesis shows atypical cells, but no evidence of malignancy * tumor markers elevated. CA 19-9 elevated at 104, Ca 125 also elevated at 188. CEA antigen is only minimally elevated at 5.4. * Pathology report came back with biopsy showing liver cancer of the left lobe. Further characterization with immunohistochemistry is still pending. Per oncology, they need the IHC results to determine treatment modalities. This is still pending. * oncology and gastroenterology consulted in light of the elevated tumor markers. * Oncology reviewed her according to the nurse practitioner that because there were no IHC results back and they wish for patient follow-up on outpatient basis. * GI on board and recommended liver MRI to better characterize the malignancy. Also get CT chest to evaluate for any chest mets. * Liver MRI showed large mass in segment 4 of the liver measuring up to 9.1 cm and liver appears noncirrhotic grossly. Subcentimeter lesions seen. There are small gallstones in parapelvic renal cysts. * had her 4th paracentesis during this admission with removal of 2.55L of ofluid yesterday * #Leucocytosis: * Urine cultures grew Pseudomonas. * completed a 10 day course of meropenem. * #Anemia: this is chronic. Hb seems to be at baseline. Will monitor. #Hyperkalemia: Resolved. #Thrombocytosis: stable. Will monitor #Hypothyroidism: on synthroid # History of DVT and PE: On therapeutic Lovenox. #Debility and weakness PT OT on board. Uses wheeled walker at her correction #Right eye infection: Has been on eyedrops, continue. #History of DAVY: On BiPAP as needed #Type 2 diabetes mellitus with neuropathy: On insulin sliding scale. Checks ACHS. On gabapentin #Hyperlipidemia: On statin Depression and anxiety: On trazodone and citalopram #COPD: not in exacerbation. Breathing treatment with bronchodilators. Class III obesity: BMI is 49.6. Complicates acute care, expected recovery and prognosis. DVT prophylaxis: on therapeutic lovenox. Resume home Eliquis after paracentesis today Disposition: patient now wants to be discharged to SNF. Insurance denied pre- CERT for correction placement. Case management now helping facilitate placement in intermediate care facility as family is not comfortable with patient going home though patient does want to go home. Allergies/Procedures Done in Hospital Allergies hydrochlorothiazide Adverse Reaction (Intermediate, Verified 09/27/24 15:57) Contributes to gout naproxen (From Naprosyn) Adverse Reaction (Intermediate, Verified 09/27/24 15:57) Nausea aspirin Adverse Reaction (Verified 09/27/24 15:57) Nausea Penicillins Adverse Reaction (Verified 09/27/24 15:57) Other Procedures: Paracentesis Type of Care/Length of Stay Estimated LOS: Convalescent Care Less Than 30 days Type of Care Needed: Intermediate Rehab Potential: Fair Prognosis: Fair Additional Orders/Day of Discharge Day of Discharge: 10/10/24 Dietary and Speech Recommendations Dietitian Recommendations/Changes: 2000 calorie/cardiac; Gluten-Free diet Fluid Restriction as needed per physician. ONS as pt agreeable; will defer for now. Discharge Plan Admission Admit Date/Time: 09/29/24 13:25 Primary Reason for Your Visit: liver cancer Attending Provider: Daria Knight Primary Care Provider: Nasreen Sutton Consulting Providers: Eddy Jeronimo; Yakov Washington; Elda Mason; Renzo Wright; Ahsan Cee; Fran Velasquez; Denae Luna; Kiran Barahona; Floyd Yuen; Artie Frey; Costa Martinez; Alejandra Cruz RESTAURANT EXPEDITOR Instructions Patient Instructions: Cancer of the Liver Discharge Orders/Prescriptions Prescriptions: New oxycodone 5 mg Tablet 5 mg PO Q4H PRN PRN (Reason: Pain Score 6-10) 3 Days Qty: 18 0RF lactulose 10 gram/15 mL solution 20 g PO TID PRN PRN (Reason: constipation) Qty: 3000 2RF Rx Instructions: titrate until 2-3 loose stools daily. Continued Nurtec ODT 75 mg tablet,disintegrating 75 mg PO DAILY PRN (Reason: migraine) insulin lispro [Humalog KwikPen Insulin] 100 unit/mL Insulin Pen 1 sliding scale dose subcut ACHS Protocol: 2. Sliding Scale Insulin Low-Med Dosing Condition: 150-209 mg/dl = 1 unit Condition: 210-269 mg/dl = 2 units Condition: 270-329 mg/dl = 3 units Condition: 330-389 mg/dl = 4 units Condition: 390-449 mg/dl = 5 units Condition: Greater than 449 call physician Protocol Text: Suggested for: - Patients on Total Daily Insulin Dose of 28-36 units - Average body habitus patients LOW MEDIUM DOSING ALGORITHM citalopram 20 mg Tablet 40 mg PO DAILY Qty: 1 0RF diclofenac sodium 3 % gel 1 ea topical BID PRN PRN (Reason: pain (scale score 1-3)) cyclobenzaprine 5 mg tablet 5 mg PO QPM budesonide-formoterol [Symbicort] 160-4.5 mcg/actuation HFA aerosol inhaler 2 puff INHALATION BID lorazepam 0.5 mg tablet 0.5 mg PO TID PRN gabapentin 300 mg capsule 300 mg PO TID fluticasone propionate 50 mcg/actuation spray,suspension 2 spray INTRANASAL BID Zirgan 0.15 % gel 1 drp RIGHT EYE .COMPLEX Rx Instructions: 1 drp into the Right EYE 5x/day; Emgality Pen 120 mg/mL pen injector 120 mg SUBCUT QMONTH Patient Comments: INHALE 120 SUBCUTANEOUSLY (UNDER THE SKIN) 1 time a day EVERY 30 days FOR MIGRAINE moxifloxacin 0.5 % drops 1 drp RIGHT EYE Q2H dicyclomine 20 mg tablet 20 mg PO Q6H PRN PRN (Reason: abdominal discomfort) Qty: 12 0RF atorvastatin 40 mg tablet 40 mg PO QHS Qty: 90 3RF isosorbide mononitrate 30 mg tablet extended release 24 hr 30 mg PO DAILY Qty: 90 3RF levothyroxine 25 mcg capsule 25 mcg PO QDAY Rx Instructions: take 25mcg daily, in addition to 200mcg levothyroxine 200 mcg capsule 200 mcg PO QDAY Rx Instructions: take 200mcg daily, in addition to 25mcg Eliquis 5 mg tablet 5 mg PO BID Qty: 180 3RF losartan 100 mg tablet 100 mg PO QDAY Referrals / Follow Up: Nasreen Sutton MD [Primary Care Provider] - 10/08/24 8:40 am Denae Luna MD [Med Staff - Active Staff] - Within 1 Week Natalio Parra DO [Med Staff - Active Staff] - Within 1 Week Department,Radiology [Non-Staff] - 10/12/24 8:30 am (Please be at the Radiology department at [facility] on 10/12/24 at 8:30am for a paracentesis. ) Disposition Disposition (needs filled in before D/C Order can be placed): NonSkilled NH/Intermed Care (2) Abdominal pain Qualifiers: Abdominal location: left upper quadrant Qualified Code(s): R10.12 - Left upper quadrant pain
--- NOTE | 2024-10-10 15:40 | CASEMGMT ---
Report received from previous MS3 RN CM @ 0997. Order for DC placed by the hospitalist. 0700 completed in the HENS. DC radiology practitioner assistant notified.
--- NOTE | 2024-10-10 15:50 | PHA.DC_ITS ---
Pharmacy [place] Med Reconciliation Pharmacy Service has performed discharge medication reconciliation for this patient. The patient's discharge medication list was reviewed for discrepancies and discrepancies were resolved. Medications at Discharge Home Medications insulin lispro 100 unit/mL subcutaneous pen (Humalog KwikPen (U-100) Insulin) 1 sliding scale dose subcut ACHS diabetes 06/27/24 rimegepant 75 mg disintegrating tablet (Nurtec ODT) 75 mg PO DAILY PRN migraine 06/27/24 citalopram 20 mg tablet 40 mg (2 x 20 mg) PO DAILY depression #1 TAB 08/08/24 budesonide-formoterol HFA 160 mcg-4.5 mcg/actuation aerosol inhaler (Symbicort) 2 puff inhalation BID 09/02/24 cyclobenzaprine 5 mg tablet 5 mg PO QPM 09/02/24 diclofenac sodium 3 % topical gel 1 ea topical BID PRN PRN pain (scale score 1- 3) 09/02/24 fluticasone propionate 50 mcg/actuation nasal spray,suspension 2 spray intranasa l BID allergies 09/02/24 gabapentin 300 mg capsule 300 mg PO TID 09/02/24 galcanezumab-gnlm 120 mg/mL subcutaneous pen injector (Emgality Pen) 120 mg subcut QMONTH 09/02/24 ganciclovir 0.15 % eye gel (Zirgan) 1 drp RIGHT EYE .COMPLEX eye med 09/02/24 lorazepam 0.5 mg tablet 0.5 mg PO TID PRN anxiety 09/02/24 moxifloxacin 0.5 % eye drops 1 drp RIGHT EYE Q2H 09/02/24 atorvastatin 40 mg tablet 40 mg PO QHS cholestrol #90 tabs 09/24/24 isosorbide mononitrate 30 mg tablet,extended release 24 hr 30 mg PO DAILY #90 tabs 09/24/24 dicyclomine 20 mg tablet 20 mg PO Q6H PRN PRN abdominal discomfort #12 tabs 09/25/24 levothyroxine 200 mcg capsule 200 mcg PO QDAY 09/25/24 levothyroxine 25 mcg capsule 25 mcg PO QDAY 09/25/24 apixaban 5 mg tablet (Eliquis) 5 mg PO BID #180 tabs 10/09/24 losartan 100 mg tablet 100 mg PO QDAY 10/09/24 lactulose 10 gram/15 mL oral solution 20 g (30 mL) PO TID PRN PRN constipation #3,000 mL 10/10/24 oxycodone 5 mg tablet 5 mg PO Q4H PRN PRN Pain Score 6-10 3 days #18 tabs 10/10/24
[2024-10-10 16:00] VITALS: BP 128/85; PULSE 95; RESP 16; TEMP 36.8; O2SAT 96
--- NOTE | 2024-10-10 16:14 | CASEMGMT ---
Discharge Planning Discharge orders, signed med list, and transport time sent to [facility]. Physicians will transport pt by wheelchair at 5p. Nursing, RN CM, pt, and her xh (Elian) updated. Ena Kaur DC Planning Asst.
--- NOTE | 2024-10-10 16:37 | DS.PCM_ITS ---
Providers Date of Admission: 09/29/24 Date of Discharge: 10/10/24 Primary Care Physician: Nasreen Sutton MD Consultations 09/30/24 07:19 Consult: General Surgery Routine Consulting Provider: Yakov Washington Reason for Consult: Acute cholecystitis EMERGENT Consult: No Notified: Yes Date Notified: 09/29/24 Time Notified: 15:28 Method of Notification: Text 10/04/24 13:14 Consult: Gastroenterology Routine Consulting Provider: [facility] Reason for Consult: probable liver carcinoma EMERGENT Consult: No Notified: Yes Date Notified: 10/04/24 Time Notified: 13:16 Method of Notification: Text Consult: Oncology/Hematology Routine Consulting Provider: [facility] ([facility]) Reason for Consult: probable liver carcinoma EMERGENT Consult: No Notified: Yes Date Notified: 10/04/24 Time Notified: 13:15 Method of Notification: Text Reason For Visit: INTRACTABLE ABD PAIN, SMALL ASCITES, UTI Diagnosis Discharge Diagnosis (1) Liver mass, left lobe: Status: Acute Code(s): R16.0 - Hepatomegaly, not elsewhere classified (2) Abdominal pain: Status: Acute Code(s): R10.9 - Unspecified abdominal pain Qualifiers: Abdominal location: left upper quadrant Qualified Code(s): R10.12 - Left upper quadrant pain Plan #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 * Fluid cytology from previous paracentesis shows atypical cells, but no evidence of malignancy * tumor markers elevated. CA 19-9 elevated at 104, Ca 125 also elevated at 188. CEA antigen is only minimally elevated at 5.4. * Pathology report came back with biopsy showing liver cancer of the left lobe. Further characterization with immunohistochemistry is still pending. Per oncology, they need the IHC results to determine treatment modalities. This is still pending. * oncology and gastroenterology consulted in light of the elevated tumor markers. * Oncology reviewed her according to the nurse practitioner that because there were no IHC results back and they wish for patient follow-up on outpatient basis. * GI on board and recommended liver MRI to better characterize the malignancy. Also get CT chest to evaluate for any chest mets. * Liver MRI showed large mass in segment 4 of the liver measuring up to 9.1 cm and liver appears noncirrhotic grossly. Subcentimeter lesions seen. There are small gallstones in parapelvic renal cysts. * had her 4th paracentesis during this admission with removal of 2.55L of ofluid yesterday * #Leucocytosis: * Urine cultures grew Pseudomonas. * completed a 10 day course of meropenem. * #Anemia: this is chronic. Hb seems to be at baseline. Will monitor. #Hyperkalemia: Resolved. #Thrombocytosis: stable. Will monitor #Hypothyroidism: on synthroid # History of DVT and PE: On therapeutic Lovenox. #Debility and weakness PT OT on board. Uses wheeled walker at her longterm #Right eye infection: Has been on eyedrops, continue. #History of DAVY: On BiPAP as needed #Type 2 diabetes mellitus with neuropathy: On insulin sliding scale. Checks ACHS. On gabapentin #Hyperlipidemia: On statin Depression and anxiety: On trazodone and citalopram #COPD: not in exacerbation. Breathing treatment with bronchodilators. Class III obesity: BMI is 49.6. Complicates acute care, expected recovery and prognosis. DVT prophylaxis: on therapeutic lovenox. Resume home Eliquis after paracentesis today Disposition: patient now wants to be discharged to SNF. Insurance denied pre- CERT for longterm placement. Case management now helping facilitate placement in intermediate care facility as family is not comfortable with patient going home though patient does want to go home. Medications at Discharge Home Medications insulin lispro 100 unit/mL subcutaneous pen (Humalog KwikPen (U-100) Insulin) 1 sliding scale dose subcut ACHS diabetes 06/27/24 rimegepant 75 mg disintegrating tablet (Nurtec ODT) 75 mg PO DAILY PRN migraine 06/27/24 citalopram 20 mg tablet 40 mg (2 x 20 mg) PO DAILY depression #1 TAB 08/08/24 budesonide-formoterol HFA 160 mcg-4.5 mcg/actuation aerosol inhaler (Symbicort) 2 puff inhalation BID 09/02/24 cyclobenzaprine 5 mg tablet 5 mg PO QPM 09/02/24 diclofenac sodium 3 % topical gel 1 ea topical BID PRN PRN pain (scale score 1- 3) 09/02/24 fluticasone propionate 50 mcg/actuation nasal spray,suspension 2 spray intranasal BID allergies 09/02/24 gabapentin 300 mg capsule 300 mg PO TID 09/02/24 galcanezumab-gnlm 120 mg/mL subcutaneous pen injector (Emgality Pen) 120 mg subcut QMONTH 09/02/24 ganciclovir 0.15 % eye gel (Zirgan) 1 drp RIGHT EYE .COMPLEX eye med 09/02/24 lorazepam 0.5 mg tablet 0.5 mg PO TID PRN anxiety 09/02/24 moxifloxacin 0.5 % eye drops 1 drp RIGHT EYE Q2H 09/02/24 atorvastatin 40 mg tablet 40 mg PO QHS cholestrol #90 tabs 09/24/24 isosorbide mononitrate 30 mg tablet,extended release 24 hr 30 mg PO DAILY #90 tabs 09/24/24 dicyclomine 20 mg tablet 20 mg PO Q6H PRN PRN abdominal discomfort #12 tabs 09/25/24 levothyroxine 200 mcg capsule 200 mcg PO QDAY 09/25/24 levothyroxine 25 mcg capsule 25 mcg PO QDAY 09/25/24 apixaban 5 mg tablet (Eliquis) 5 mg PO BID #180 tabs 10/09/24 losartan 100 mg tablet 100 mg PO QDAY 10/09/24 lactulose 10 gram/15 mL oral solution 20 g (30 mL) PO TID PRN PRN constipation #3,000 mL 10/10/24 oxycodone 5 mg tablet 5 mg PO Q4H PRN PRN Pain Score 6-10 3 days #18 tabs 10/10/24 Hospital Course Operations None Procedures Paracentesis and - (liver biopsy) Summary of Care Provided Minutes Spent on Discharge: 45 Hospital Course: Patient is a 54-year-old female with an extensive past medical history as outlined was admitted to the ED on 09/27/2024 with a complaint of persistent abdominal pain with distention and right arm swelling. She had recently been admitted from 08/04 to 08/08/2024 for myxedema coma due to nonadherence with her home Synthroid. She had also been seen in the ED on 09/20 and 09/25/2024 for abdominal pain. Acute abdomen series then showed dense colonic stool consistent with constipation and CT of the abdomen and pelvis on 09/25/2024 showed free fluid throughout the abdomen consistent with ascites of unclear significance and also low-density infiltration in liver consistent with fatty liver disease. She was sent home with plans for outpatient paracentesis. However the abdominal pain persisted so she came into the ED and she also had right upper extremity swelling. On admission AST was mildly elevated and ALP was normal. She was admitted and managed for persistent abdominal pain with ascites. She was also treated for the right arm swelling. Right upper quadrant ultrasound findings were suggestive of acute cholecystitis and also showed hepatomegaly with moderate volume ascites. General surgery reviewed patient and HIDA scan did not show any indication for acute cholecystitis. He did have CT of the abdomen with and without contrast which showed possible omental metastasis and liver malignancy. She had multiple paracentesis during this admission. She had CT- guided biopsy of the liver. Fluid cytology did not show any evidence of ascites and showed atypical cells. Urinalysis grew Pseudomonas and she completed a 7- day course of IV meropenem. Tumor markers came back elevated with CA 19 9, CEA 125 but significantly elevated. CEA antigen was only minimally elevated at 5.4. Liver biopsy pathology report came back showing liver cancer. Further characterization with immunochemistry was pending and was still pending at time of discharge. Oncology and gastroenterology were consulted. Gastroenterology recommended liver MRI to better characterize the malignancy and also get CT of the chest to rule out any chest mets. She did have CT of the chest with did not show any evidence of metastasis in the chest. Liver MRI showed large mass in segment 4 of the liver measuring up to 9.1 cm and liver appears noncirrhotic grossly. Subcentimeter lesions seen. There are small gallstones in parapelvic renal cysts. Oncology reviewed patient is stated that without the immunohistochemistry results they could not give any recommendations about the treatment and so recommended that she follow-up on outpatient basis once the immunohistochemistry results were entered. Patient with physical therapy was deemed as needing skilled care. However insurance denied a skilled care so she was discharged to an intermediate care facility on 10/10/2024. She was discharged on lactulose as well as p.o. oxycodone 5 mg every 4 hours as needed for total of 18 tablets for 3 days. OARRS score was checked and no red flags were seen. Patient seen and examined prior to discahrge. She was still complaining of RUQ pain. Review of systems is otherwise negative. Las and vitals reviewed. Home meds reviewed and reconciled. Physical Exam Const alert and oriented x3 Constitutional Narrative: class III obesity, patient looks uncomfortable due to pain. General Appearance: cooperative Orientation / Consciousness: awake HEENT normocephalic, head/scalp atraumatic, hearing grossly normal bilaterally, nasal mucous membranes and turbinates normal and moist oral mucous membranes Mouth: oral and palatal mucosa normal Eyes PERRL, EOMs intact bilaterally and conjunctivae normal Neck full ROM, no lymphadenopathy and supple Neck Narrative: neck is very short and thick Lymph Lymphatic: no lymphedema noted Chest inspection of chest normal Resp normal respiratory effort and normal air movement Cardio regular rate, regular rhythm, S1 normal heart sound, S2 normal heart sound and no murmurs GI GI Narrative: obese abdomen, dressing over RUQ (liver area), positive fluid thrill, RUQ tenderness, no guarding or rebound tenderness. Difficult to palpate organomegaly due to abdominal distension and obesity. Back/Spine normal ROM Extremity full ROM, normal capillary refill, no clubbing, cyanosis or edema and no calf tenderness Extremity Narrative: Bilateral lower extremity chronic edema, no cyanosis or clubbing General Extremity: no tenderness to palpation of joints or extremities Skin no rashes or lesions noted General Skin Exam: no breakdown Neuro oriented x3, moves all extremities and no focal motor deficits Neuro Narrative: patient alert, communicative, but weak. Speech: speech normal Motor Exam: general weakness Psych Psych Narrative: patient weak, moves all extremities. flat affect Mood & Affect: flat affect Weight / BMI Weight Weight: 290 lb 9.108 oz Body Mass Index (BMI) 49.6 ABG / Lab / Microbiology Data 10/10/24 07:12 10/10/24 07:12 Laboratory: Laboratory Results - last 24 hr 10/09/24 16:42: POC Glucose 129 H 10/09/24 17:13: WBC 15.4 H, RBC 3.82 L, Hgb 11.4 L, Hct 36.8 L, MCV 96.3, MCH 29.8, MCHC 31.0 L, RDW Std Deviation 59.4 H, RDW Coeff of Alfredo 17.1 H, Plt Count 553 H, MPV 9.7, Immature Gran % (Auto) 1.300 H, Neut % (Auto) 78.9 H, Lymph % (Auto) 11.1 L, [place] % (Auto) 7.9, Eos % (Auto) 0.3, Baso % (Auto) 0.5, Absolute Neuts (auto) 12.2 H, Absolute Lymphs (auto) 1.71, Nucleated RBC % 0.1, Sodium 130 L, Potassium 4.2, Chloride 99, Carbon Dioxide 17.4 L, Anion Gap 14, BUN 9, Creatinine 1.09, Estim Creat Clear Calc 79.68, Est GFR (MDRD) Non-Af 60, B UN/Creatinine Ratio 8.0 L, Glucose 141 H, Calcium 8.3 10/09/24 21:39: POC Glucose 129 H 10/10/24 06:30: POC Glucose 119 H 10/10/24 07:12: WBC 14.5 H, RBC 3.83 L, Hgb 11.4 L, Hct 35.4 L, MCV 92.4, MCH 29.8, MCHC 32.2, RDW Std Deviation 55.6 H, RDW Coeff of Alfredo 16.6 H, Plt Count 540 H, MPV 9.3, Immature Gran % (Auto) 0.900, Neut % (Auto) 78.2 H, Lymph % (Auto) 10.1 L, [place] % (Auto) 9.7, Eos % (Auto) 0.6, Baso % (Auto) 0.5, Absolute Neuts (auto) 11.3 H, Absolute Lymphs (auto) 1.46, Nucleated RBC % 0, Sodium 132 L, Potassium 4.4, Chloride 97 L, Carbon Dioxide 22.5, Anion Gap 12, BUN 10, Creatinine 1.12, Estim Creat Clear Calc 77.54, Est GFR (MDRD) Non-Af 58 L, B UN/Creatinine Ratio 8.8 L, Glucose 130 H, Calcium 8.6 10/10/24 11:37: POC Glucose 123 H Microbiology: Microbiology 10/02/24 13:55 Fluid - Ascites Gram Stain - Final 10/02/24 13:55 Fluid - Ascites Body Fluid Culture - Final Culture exhibits no growth. 10/02/24 13:55 Fluid - Ascites Anaerobic Culture - Final No growth in 5 days. 09/27/24 17:04 Urine, Clean Catch Urine Culture - Final Pseudomonas aeruginosa D/C Instructions Discharge Activity: Return to Normal Activity Weight Bearing Status: Weight bearing as tolerated Call your doctor if you observe: Fever of 101 or Higher, Shortness of breath, Swelling in the ankles, Chest pain and Uncontrolled pain DC O2, CPAP, BIPAP Needs Home O2 Discharge instructions: No DC home with Oxygen: No Meaningful Use Info Meaningful Use Meaningful Use Diagnoses (Choose all that apply): None applicable Discharge Plan Admission Admit Date/Time: 09/29/24 13:25 Primary Reason for Your Visit: liver cancer Attending Provider: Daria Knight Primary Care Provider: Nasreen Sutton Consulting Providers: Eddy Jeronimo; Yakov Washington; Elda Mason; Renzo Wright; Ahsan Cee; Fran Velasquez; Denae Luna; Kiran Barahona; Floyd Yuen; Artie Frey; Costa Martinez; Alejandra Cruz REGISTERED NURSE FETAL Instructions Patient Instructions: Cancer of the Liver Discharge Orders/Prescriptions Prescriptions: New oxycodone 5 mg Tablet 5 mg PO Q4H PRN PRN (Reason: Pain Score 6-10) 3 Days Qty: 18 0RF lactulose 10 gram/15 mL solution 20 g PO TID PRN PRN (Reason: constipation) Qty: 3000 2RF Rx Instructions: titrate until 2-3 loose stools daily. Continued Nurtec ODT 75 mg tablet,disintegrating 75 mg PO DAILY PRN (Reason: migraine) insulin lispro [Humalog KwikPen Insulin] 100 unit/mL Insulin Pen 1 sliding scale dose subcut ACHS Protocol: 2. Sliding Scale Insulin Low-Med Dosing Condition: 150-209 mg/dl = 1 unit Condition: 210-269 mg/dl = 2 units Condition: 270-329 mg/dl = 3 units Condition: 330-389 mg/dl = 4 units Condition: 390-449 mg/dl = 5 units Condition: Greater than 449 call physician Protocol Text: Suggested for: - Patients on Total Daily Insulin Dose of 28-36 units - Average body habitus patients LOW MEDIUM DOSING ALGORITHM citalopram 20 mg Tablet 40 mg PO DAILY Qty: 1 0RF diclofenac sodium 3 % gel 1 ea topical BID PRN PRN (Reason: pain (scale score 1-3)) cyclobenzaprine 5 mg tablet 5 mg PO QPM budesonide-formoterol [Symbicort] 160-4.5 mcg/actuation HFA aerosol inhaler 2 puff INHALATION BID lorazepam 0.5 mg tablet 0.5 mg PO TID PRN gabapentin 300 mg capsule 300 mg PO TID fluticasone propionate 50 mcg/actuation spray,suspension 2 spray INTRANASAL BID Zirgan 0.15 % gel 1 drp RIGHT EYE .COMPLEX Rx Instructions: 1 drp into the Right EYE 5x/day; Emgality Pen 120 mg/mL pen injector 120 mg SUBCUT QMONTH Patient Comments: INHALE 120 SUBCUTANEOUSLY (UNDER THE SKIN) 1 time a day EVERY 30 days FOR MIGRAINE moxifloxacin 0.5 % drops 1 drp RIGHT EYE Q2H dicyclomine 20 mg tablet 20 mg PO Q6H PRN PRN (Reason: abdominal discomfort) Qty: 12 0RF atorvastatin 40 mg tablet 40 mg PO QHS Qty: 90 3RF isosorbide mononitrate 30 mg tablet extended release 24 hr 30 mg PO DAILY Qty: 90 3RF levothyroxine 25 mcg capsule 25 mcg PO QDAY Rx Instructions: take 25mcg daily, in addition to 200mcg levothyroxine 200 mcg capsule 200 mcg PO QDAY Rx Instructions: take 200mcg daily, in addition to 25mcg Eliquis 5 mg tablet 5 mg PO BID Qty: 180 3RF losartan 100 mg tablet 100 mg PO QDAY Referrals / Follow Up: Nasreen Sutton MD [Primary Care Provider] - 10/08/24 8:40 am Denae Luna MD [Med Staff - Active Staff] - Within 1 Week Aida,DO Natalio [Med Staff - Active Staff] - Within 1 Week Department,Radiology [Non-Staff] - 10/12/24 8:30 am (Please be at the Radiology department at [facility] on 10/12/24 at 8:30am for a paracentesis. ) Disposition Disposition (needs filled in before D/C Order can be placed): NonSkilled NH/Intermed Care Charges/Coding Visit Charges Inpatient E&M: 07768 Disch Hosp >30min
== END 2024-10-10 16:42 | disposition intermediate care facility (04) | DRG 436 ==
LOC: ED 18:05 → MS3 18:26
PROVIDERS: Internal Medicine; Radiology Nuclear Radiology; Admitting Provider Hospitalist; Emergency Provider Emergency Medicine; PCP Family Medicine; Visit Provider Student in an Organized Health Care Education/Training Program
DX: C22.0 Liver cell carcinoma (principal); R18.8 Other ascites; E87.20 Acidosis, unspecified; C78.6 Secondary malignant neoplasm of retroperitoneum and peritoneum; Z68.42 Body mass index [BMI] 45.0-49.9, adult; R44.3 Hallucinations, unspecified; B96.5 Pseudomonas (aeruginosa) (mallei) (pseudomallei) as the cause of diseases classified elsewhere; E11.22 Type 2 diabetes mellitus with diabetic chronic kidney disease; D72.829 Elevated white blood cell count, unspecified; Z66 Do not resuscitate; J44.9 Chronic obstructive pulmonary disease, unspecified; K74.60 Unspecified cirrhosis of liver; I12.9 Hypertensive chronic kidney disease with stage 1 through stage 4 chronic kidney disease, or unspecified chronic kidney disease; E03.9 Hypothyroidism, unspecified; F32.A Depression, unspecified; N18.9 Chronic kidney disease, unspecified; E88.09 Other disorders of plasma-protein metabolism, not elsewhere classified; E11.43 Type 2 diabetes mellitus with diabetic autonomic (poly)neuropathy; Z79.4 Long term (current) use of insulin; E78.00 Pure hypercholesterolemia, unspecified; G47.33 Obstructive sleep apnea (adult) (pediatric); J30.9 Allergic rhinitis, unspecified; K31.84 Gastroparesis; E87.5 Hyperkalemia; W19.XXXA Unspecified fall, initial encounter; D75.839 Thrombocytosis, unspecified; F41.9 Anxiety disorder, unspecified; E86.0 Dehydration; E66.813 Obesity, class 3; G89.29 Other chronic pain; N28.1 Cyst of kidney, acquired; Z79.01 Long term (current) use of anticoagulants; Z79.51 Long term (current) use of inhaled steroids; Z79.890 Hormone replacement therapy; Z79.899 Other long term (current) drug therapy; Z86.711 Personal history of pulmonary embolism; Z86.73 Personal history of transient ischemic attack (TIA), and cerebral infarction without residual deficits; Z86.718 Personal history of other venous thrombosis and embolism
CPT/HCPCS: 36415; 49083; 70470; 71260; 73560; 74177; 74178; 74183; 76705; 76942; 78227; 80048; 80053; 80076; 81001; 82042; 82105; 82140; 82378; 82803; 82945; 82962; 83605; 83615; 83690; 83735; 83880; 84100; 84157; 84439; 84443; 85025; 85027; 85610; 85730; 86301; 86304; 87070; 87075; 87077; 87086; 87088; 87184; 87186; 87205; 88108; 88305; 88307; 88313; 88341; 88342; 89050; 93005; 94002; 94003; 94640; 94660; 97110; 97116; 97162; 97166; 97168; 97530; 97535; 99282; A9537; A9575; J2185; P9047; Q9967; A4216; J2405; J2805

== ENCOUNTER → 2024-10-12 | Outpatient (CLI) | payer MEDICARE, MEDICAID, SELFPAY ==
[2024-10-12 08:45] VITALS: BP 92/59; PULSE 98; RESP 16; TEMP 36.4; O2SAT 96
[2024-10-12 09:00] VITALS: BP 91/69; PULSE 96; RESP 16; O2SAT 94
[2024-10-12 09:13] VITALS: BP 95/71; PULSE 97; RESP 16; O2SAT 96
--- NOTE | 2024-10-12 09:14 | PCM.OPRPT ---
Problems Associated Problem List Diagnoses (1) Ascites: (2) Cirrhosis: Multi Select Codes Radiology Radiology US Procedures: 51874 Paracentesis Operative Report (Standard) Operative Information Date of Procedure: 10/12/24 Pre-Operative Diagnosis: Ascites Post-Operative Diagnosis: Ascites Surgery/Procedure Performed: Ultrasound-guided paracentesis head stock operator: No Type of Anesthesia: Local Procedure Start Time: 08:49 Procedure Stop Time: 09:07 Select all DRAINS/GRAFTS/IMPLANTS that apply: None Estimated Blood Loss: 0 Specimen collected: No Description of surgery: PROCEDURE: Ultrasound guided paracentesis ORDERING PROVIDER: Dr. Parra INDICATION: Female, 54 years old. Ascites. PROVIDER: ACACIA Weinberg TECHNIQUE: The risks, benefits, and alternatives to the procedure were explained to the patient. The specific risks of bleeding, infection, and damage to bowel were detailed and accepted. Witnessed informed consent was obtained. The abdomen was ultrasonographically surveyed. An appropriate pocket of fluid was identified in the right upper quadrant. The skin was prepped with chlorhexidine and sterile field established. 2% lidocaine was used for local anesthetic. Using ultrasound guidance, the peritoneal cavity was accessed with a 5-Faroese paracentesis needle/catheter system. The trocar was removed. A total of 4150 ml of clear yellow colored fluid was removed from the peritoneal cavity. The catheter was removed and a sterile dressing was applied. The procedure was well tolerated without any immediate complications. IMPRESSION: Successful ultrasound guided paracentesis with right upper quadrant access site. Surgical Findings: None Complications Complications: No
[2024-10-12 09:15] VITALS: BP 101/74; PULSE 97; RESP 16; O2SAT 98
== END | disposition home or self-care (01) ==
PROVIDERS: PCP Family Medicine; Referring Provider Internal Medicine Gastroenterology; Visit Provider Internal Medicine Gastroenterology
DX: K74.60 Unspecified cirrhosis of liver (principal); R18.8 Other ascites
CPT/HCPCS: 49083

== ENCOUNTER 2024-10-16 00:24 | Inpatient (IN) | payer MEDICARE, MEDICAID, SELFPAY ==
[2024-10-16] VITALS (17 sets, daily range): BP systolic 96–156; BP diastolic 56–113; PULSE 65–108; RESP 16–23; TEMP 36.2–37.2; O2SAT 90–100; BMI 47.9; BMI 47.4
--- NOTE | 2024-10-16 00:32 | EX.ED.DYSGE1 ---
HPI History of Present Illness Chief Complaint: General Illness Informant: patient Onset/Context/Timing Onset: Today Context: Gradual Onset Timing: Continuous Quality: Aching Location: Abdomen Worsened by: Palpation Relieved by: Nothing Narrative Narrative: Patient advised to abdominal pain that became worse today. Patient was recently diagnosed with liver cancer. Patient is currently living at extended-care facility. Patient was found to have an elevated creatinine and elevated potassium at the [facility]. Patient was then referred to the emergency department. Patient denies any fevers or chills. Patient denies any nausea or vomiting. Patient denies any chest pain or shortness of breath. [facility] Medical History Toxic metabolic encephalopathy MARYANA (acute kidney injury) Noncompliance with medication regimen Acute hypoxic on chronic hypercapnic respiratory failure Myxedema coma Elevated serum creatinine Sinus bradycardia on ECG Kidney failure MARYANA (acute kidney injury) Fatigue MARYANA (acute kidney injury) Walker as ambulation aid Ambulates with cane Low iron History of renal disease High cholesterol DVT (deep venous thrombosis) PONV (postoperative nausea and vomiting) Stroke/cerebrovascular accident Sleep apnea [facility]iology follow-up encounter Scalp hematoma Pulmonary embolism Post-menopausal Thyroid disease Injury of head and neck Dietary restriction Difficulty swallowing BiPAP (biphasic positive airway pressure) dependence COPD (chronic obstructive pulmonary disease) Shortness of breath on exertion Leg cramps History of pain when walking History of edema History of echocardiogram History of stress test Syncope Abnormal glucose Noncompliance DAVY treated with BiPAP UTI (urinary tract infection) Vitamin D deficiency Restless leg syndrome Vitamin B12 deficiency Iron deficiency anemia History of chronic back pain Wears glasses Arthritis Non-smoker Hydronephrosis Depression Anemia Migraine headache Chronic kidney disease Diabetes mellitus Gout Celiac disease Hyperlipidemia GERD (gastroesophageal reflux disease) Dyspnea on exertion Chest pain Hypersomnia Cardiac murmur Microcytic anemia Hypertension Morbid obesity with BMI of 40.0-44.9, adult Asthma Hypothyroidism Anxiety Home Medications ?Medication ?Instructions ?Recorded ?Last Taken ?Type insulin lispro 100 unit/mL 1 sliding scale dose subcut ACHS 06/27/24 06/27/24 History subcutaneous pen (Humalog KwikPen diabetes (U-100) Insulin) rimegepant 75 mg disintegrating 75 mg PO DAILY PRN migraine 06/27/24 Unknown History tablet (Nurtec ODT) citalopram 20 mg tablet 40 mg (2 x 20 mg) PO DAILY 08/08/24 06/27/24 Rx depression #1 TAB budesonide-formoterol HFA 160 2 puff inhalation BID 09/02/24 Unknown History mcg-4.5 mcg/actuation aerosol inhaler (Symbicort) cyclobenzaprine 5 mg tablet 5 mg PO QPM 09/02/24 Unknown History diclofenac sodium 3 % topical gel 1 ea topical BID PRN PRN pain 09/02/24 Unknown History (scale score 1-3) fluticasone propionate 50 2 spray intranasal BID allergies 09/02/24 Unknown History mcg/actuation nasal spray,suspension gabapentin 300 mg capsule 300 mg PO TID 09/02/24 Unknown History galcanezumab-gnlm 120 mg/mL 120 mg subcut QMONTH 09/02/24 Unknown History subcutaneous pen injector (Emgality Pen) ganciclovir 0.15 % eye gel (Zirgan) 1 drp RIGHT EYE .COMPLEX eye med 09/02/24 Unknown History lorazepam 0.5 mg tablet 0.5 mg PO TID PRN anxiety 09/02/24 Unknown History moxifloxacin 0.5 % eye drops 1 drp RIGHT EYE Q2H 09/02/24 Unknown History atorvastatin 40 mg tablet 40 mg PO QHS cholestrol #90 tabs 09/24/24 Unknown Rx isosorbide mononitrate 30 mg 30 mg PO DAILY #90 tabs 09/24/24 Unknown Rx tablet,extended release 24 hr dicyclomine 20 mg tablet 20 mg PO Q6H PRN PRN abdominal 09/25/24 Unknown Rx discomfort #12 tabs levothyroxine 200 mcg capsule 200 mcg PO QDAY 09/25/24 Unknown History levothyroxine 25 mcg capsule 25 mcg PO QDAY 09/25/24 Unknown History apixaban 5 mg tablet (Eliquis) 5 mg PO BID #180 tabs 10/09/24 Unknown Rx losartan 100 mg tablet 100 mg PO QDAY 10/09/24 Unknown History lactulose 10 gram/15 mL oral 20 g (30 mL) PO TID PRN PRN 10/10/24 Unknown Rx solution constipation #3,000 mL oxycodone 5 mg tablet 5 mg PO Q4H PRN PRN Pain Score 10/10/24 Unknown Rx 6-10 3 days #18 tabs ciprofloxacin HCl 0.3 % eye drops 2 drp RIGHT EYE 4X/DAY 10/16/24 Unknown History tizanidine 2 mg tablet 2 mg PO BID muscle spasm 10/16/24 Unknown History tobramycin 0.3 % eye drops 1 drp RIGHT EYE Q6H 10/16/24 Unknown History tramadol 50 mg tablet 50 mg PO 4X/DAY PRN pain 10/16/24 Unknown History Allergy/AdvReac Type Severity Reaction Status Date / Time hydrochlorothiazide AdvReac Intermediate Contributes Verified 10/16/24 00:29 to gout naproxen (From Naprosyn) AdvReac Intermediate Nausea Verified 10/16/24 00:29 aspirin AdvReac Nausea Verified 10/16/24 00:29 Penicillins AdvReac Other Verified 10/16/24 00:29 Family History Father , Age 72 Hypertension Mother CAD (coronary artery disease) Myocardial infarction, Onset Age: 55 Hypertension Sister CAD (coronary artery disease) Brother Cancer Surgical History History of cardiac catheterization History of History of carpal tunnel surgery of right wrist History of carpal tunnel surgery of left wrist Hx of cystoscopy History of left heart catheterization (11/11/20) history of uterine ablation Social History household members: spouse housing: apartment Smoking Status: Never smoker alcohol intake: never substance use type: does not use caffeine: No ROS ROS ED Review of Systems ROS Unobtainable: due to mental condition Constitutional Constitutional ED: Denies chills or fever(s) Cardiovascular Cardiovascular: Denies chest pain or palpitations Respiratory/Chest Respiratory/Chest: Denies cough or dyspnea Gastrointestinal Gastrointestinal: Reports abdominal pain Neurologic Neurologic: Reports weakness EXAM Physical Exam Const Vital Signs: 10/16/24 00:25 10/16/24 00:25 10/16/24 00:30 Temperature 98.1 F Temperature Source Oral Pulse Rate 75 Respiratory Rate 19 H Respiratory Pattern Normal Blood Pressure 120/102 H Blood Pressure Mean 108 Pulse Ox 98 Oxygen Delivery Method Room Air 10/16/24 02:25 10/16/24 03:24 10/16/24 03:29 Temperature 97.1 F L 97.1 F L Temperature Source Core Pulse Rate 85 69 69 Respiratory Rate 23 H 18 18 Respiratory Pattern Blood Pressure 136/113 H 134/104 H 134/104 H Blood Pressure Mean 120 114 114 Pulse Ox 90 93 93 Oxygen Delivery Method Room Air Room Air 10/16/24 04:00 10/16/24 04:29 Temperature 97.3 F L Temperature Source Core Pulse Rate 82 79 Respiratory Rate 21 H 19 H Respiratory Pattern Blood Pressure 149/101 H 115/94 H Blood Pressure Mean 117 101 Pulse Ox 94 95 Oxygen Delivery Method Room Air Room Air Positive well nourished and well developed Constitutional Narrative: BMI is 47.9. General Appearance ED: well developed and NAD HEENT Reports dry mucous membranes Mouth ED: Yes dry mucous membranes Mouth: dry mucous membranes Neck supple and no JVD Chest Wall palpation of chest normal Resp normal respiratory effort Auscultation: diminished lung sounds GI Palpation: soft and tender epigastric, LLQ, RLQ, LUQ, RUQ, periumbilical and suprapubic; Negative for guarding Neuro CN's II-XII intact bilaterally and no sensory deficits noted Sensorium / Orientation: alert Motor Exam: strength 5/5 throughout Psych Psych Narrative: Patient is sleepy on exam. Patient does answer questions appropriately. MDM MDM MDM Narrative Medical decision making narrative: Differential diagnosis includes bowel obstruction, perforation, urinary tract infection, sepsis, electrolyte abnormality, dehydration, acute kidney injury, pneumonia, bronchitis, and anxiety. CBC will be obtained to assess for leukocytosis and anemia. Comprehensive metabolic profile will be obtained to assess for hepatic function, renal function, and electrolyte abnormality. Lipase will be obtained to assess for pancreatitis. Urinalysis will be obtained to assess for urinary tract infection and hematuria. Serum lactate will be obtained to assess for sepsis. PT with INR and PTT will be obtained to assess for coagulopathy. Chest x-ray will be obtained to assess for pneumonia or bronchitis. CT scan of the abdomen and pelvis will be obtained to assess for bowel obstruction and perforation. Blood cultures will be obtained to assess for sepsis. Urine culture will be obtained to assess for urinary tract infection. History & Record Review Additional record(s) reviewed:: Prior inpatient record, Prior outpatient record, Prior ED visit and Prior labs Lab Data Attestation: I reviewed the patient's lab results. Lab results narrative: CBC was reviewed. There is a leukocytosis at 9.1. This was increased from previous result. Hemoglobin is 8.7 and hematocrit was 26.6. This is stable compared to previous results. Platelets were slightly elevated at 469. PT with INR and PTT were reviewed. Pro time was slightly elevated at 29 and INR is 2.7. PTT was 42.9. Comprehensive metabolic profile was reviewed. Chloride was slightly elevated at 113. CO2 was low at 9.2. Calcium was low at 4.6. BUN was elevated at 36 and creatinine was elevated at 3.6. These are increased from previous results. Lipase was reviewed and was low at 7. Serum magnesium level was reviewed and was normal at 1.5. Phosphorus was reviewed and was slightly elevated at 5.4. Serum lactate was reviewed and was elevated at 2.2. Serum ammonia level was reviewed and was normal at 28.6. Urinalysis was reviewed. Nitrites were positive. Leukocyte esterase was 500. There are greater than 100 white blood cells and 3+ bacteria. There are 10-25 epithelial cells. Labs: Laboratory Results - last 24 hr 10/16/24 10/16/24 10/16/24 01:05 01:12 02:40 WBC 19.1 H RBC 2.89 L Hgb 8.7 L Hct 26.6 L MCV 92.0 MCH 30.1 MCHC 32.7 RDW Std Deviation 55.3 H RDW Coeff of Alfredo 16.4 H Plt Count 469 H MPV 9.8 Immature Gran % (Auto) 2.300 H Neut % (Auto) 86.7 H Lymph % (Auto) 6.8 L [place] % (Auto) 3.9 Eos % (Auto) 0.1 Baso % (Auto) 0.2 Absolute Neuts (auto) 16.5 H Absolute Lymphs (auto) 1.29 Nucleated RBC % 0.2 PT 29.0 H INR 2.7 APTT 42.9 H Sodium 135 Potassium 3.9 Chloride 113 H Carbon Dioxide 9.2 L* Anion Gap 13 BUN 36 H Creatinine 3.60 H Estim Creat Clear Calc 23.54 L Est GFR (MDRD) Non-Af 14 L BUN/Creatinine Ratio 9.9 L Glucose 60 L Lactic Acid 2.2 H* Calcium 4.6 L* Phosphorus 5.4 H Magnesium 1.5 Total Bilirubin 0.17 AST 36 H ALT 9 Alkaline Phosphatase 100 Ammonia 28.6 Total Protein 3.0 L Albumin 0.9 L Globulin 2.1 L Albumin/Globulin Ratio 0.4 L Lipase 7 L Urine Color Angelica Urine Clarity Cloudy Urine pH 5.0 Ur Specific [place] 1.025 Urine Protein 100 H Urine Glucose (UA) Normal Urine Ketones 5 H Urine Occult Blood 250 H Urine Nitrite Positive H Urine Bilirubin 1 H Urine Urobilinogen 1 H Ur Leukocyte Esterase 500 H Urine RBC 0 SEEN Urine WBC >100 SEEN Ur Squamous Epith Cells 10-25 SEEN Urine Bacteria 3+ Urine Mucus 0 SEEN POC Glucose 10/16/24 03:48 WBC RBC Hgb Hct MCV MCH MCHC RDW Std Deviation RDW Coeff of Alfredo Plt Count MPV Immature Gran % (Auto) Neut % (Auto) Lymph % (Auto) [place] % (Auto) Eos % (Auto) Baso % (Auto) Absolute Neuts (auto) Absolute Lymphs (auto) Nucleated RBC % PT INR APTT Sodium Potassium Chloride Carbon Dioxide Anion Gap BUN Creatinine Estim Creat Clear Calc Est GFR (MDRD) Non-Af BUN/Creatinine Ratio Glucose Lactic Acid Calcium Phosphorus Magnesium Total Bilirubin AST ALT Alkaline Phosphatase Ammonia Total Protein Albumin Globulin Albumin/Globulin Ratio Lipase Urine Color Urine Clarity Urine pH Ur Specific [place] Urine Protein Urine Glucose (UA) Urine Ketones Urine Occult Blood Urine Nitrite Urine Bilirubin Urine Urobilinogen Ur Leukocyte Esterase Urine RBC Urine WBC Ur Squamous Epith Cells Urine Bacteria Urine Mucus POC Glucose 84 ABG Data Attestation: I personally reviewed and interpreted this ABG as follows: Interpretation: Venous blood gas was reviewed. pH was 7.35. pO2 is 37, bicarb was 21. Total CO2 was 22. ABG results: ABG 10/16/24 02:25 Specimen Type MALISSA Sample Site Not entered VBG pH 7.35 VBG pO2 37 VBG HCO3 21 L VBG Total CO2 22 L VBG O2 Sat (Calc) 68 VBG Base Excess -5 L POC Mix VBG pCO2 Pt Tmp 37.1 L O2 Delivery Device Room Air Radiography Chest X-Ray - ED: 1 View, Read by ED Physician, Read by Radiologist, No Acute Disease and Cardiomegaly Diagnostic Testing: Clinical Impression(s) from Imaging Studies Abdomen/Pelvis CT 10/16/24 00:49 IMPRESSION: Unchanged hepatomegaly with hepatic steatosis. Unchanged ill-defined hypodense mass in the segment 4B of the liver, probably neoplastic pathology. Unchanged moderate ascites. Unchanged multifocal nodular omental/peritoneal thickening, possibly secondary to neoplastic infiltration. Mild gastroparesis/gastritis. Unchanged anasarca/third-spacing. Unchanged scattered bilateral peripelvic renal cysts. Reading Location: [place] [id number] Chest X-Ray 10/16/24 01:50 IMPRESSION: No evidence for acute abnormality. Reading Location: [place] [address] Portable 1 view chest x-ray was obtained. On my independent interpretation, lung lee are clear. There is cardiomegaly. Bony thorax is normal. There is no acute process noted. Radiologist also interpreted the x-ray and agrees. CT scan of the abdomen and pelvis was obtained. There is unchanged hepatomegaly, unchanged ascites, and unchanged third spacing. There is mild gastritis and gastroparesis. This was interpreted by the radiologist and was also independently reviewed by myself. Management Discussion w/another healthcare provider: Hospitalist Additional Tests and Interventions Additional Tests or Interventions: Because of the low CO2, venous blood gas was ordered. Because of the hypocalcemia, serum magnesium and serum phosphorus were ordered. Treatment and Re-Evaluation :: Patient was given IV fluids. Patient was given a dose of calcium gluconate. Patient was given 1 amp of bicarb. Patient was started on cefepime. Patient was still confused on reevaluation. Due to the patient's history of diastolic dysfunction and third spacing on her CT scan, patient was only given 1 L of normal saline at this time. Case was discussed with the hospitalist. He will admit the patient to [facility] to his service. Critical Care Time Critical Care Time: Yes Critical care time (excluding procedures): 30-74 minutes (38), Including time spent:, Discussing w/Patient &/or Family/Video Surveillance Technician, Discussing w/Consultants, Arranging Admission or Transfer and Performing Direct Patient Care at Bedside Discharge Plan Dx/Rx/DC Orders Clinical Impression: Acute kidney injury, UTI (urinary tract infection), Leukocytosis, unspecified, Lactic acidosis, Hypocalcemia, Diabetes mellitus, Hypoglycemia associated with diabetes, Sepsis Disposition Disposition: [facility]
--- NOTE | 2024-10-16 00:49 | CT_ITS ---
PROCEDURE: ABDOMEN/PELVIS WITHOUT CONT 10/16/2024 REASON FOR EXAM: ABDOMINAL PAIN TECHNIQUE: ABDOMEN/PELVIS WITHOUT CONT Noncontrast technique limits evaluation of the abdominal and pelvic viscera. Coronal and Sagittal reconstruction series were provided. One or more dose reduction techniques were used (e.g., Automated exposure control, adjustment of the mA and/or kV according to patient size, use of iterative reconstruction technique). RADIATION DOSE SUMMARY: CTDlvol: 24.07 mGy DLP: 1443 mGycm COMPARISON: CT SCAN ON 10/06/2024. FINDINGS: Unchanged hepatomegaly with hepatic steatosis. Unchanged ill-defined hypodense mass in the segment 4B of the liver, probably neoplastic pathology. Unchanged moderate ascites. Unchanged multifocal nodular omental/peritoneal thickening, possibly secondary to neoplastic infiltration. Mild gastroparesis/gastritis. Unchanged anasarca/third-spacing. Unchanged scattered bilateral peripelvic renal cysts. Normal gallbladder and extrahepatic biliary system. Normal spleen. Normal pancreas. Normal bilateral adrenal glands. Normal size of the right kidney. There is no right renal mass. There are no right renal calculi. There is no right hydronephrosis. Normal visualized right ureter. Normal size of the left kidney. There is no left renal mass. There are no left renal calculi. There is no left hydronephrosis. Normal visualized left ureter. Normal small intestine. Normal colon. The appendix is visualized and appears normal. Normal abdominal aorta. Normal inferior vena cava. Normal retroperitoneum. Normal urinary bladder. There is no pelvic lymphadenopathy. Normal abdominal wall. Normal osseous structures. CT/Abdomen/Pelvis without Cont IMPRESSION: Unchanged hepatomegaly with hepatic steatosis. Unchanged ill-defined hypodense mass in the segment 4B of the liver, probably n eoplastic pathology. Unchanged moderate ascites. Unchanged multifocal nodular omental/peritoneal thickening, possibly secondary to neoplastic infiltration. Mild gastroparesis/gastritis. Unchanged anasarca/third-spacing. Unchanged scattered bilateral peripelvic renal cysts. Reading Location: [place] [id number]
[2024-10-16 01:16] LABS: Hematocrit 26.6 % (37-47); Hemoglobin 8.7 g/dL (12.0-15.0); Immature Granulocytes Count 0.440 X10^3/uL (0.0-0.0); Mean Corp Hgb Conc 32.7 g/dL (32-36); Mean Corpuscular Volume 92.0 fL (81-99); Mean Platelet Vol. 9.8 fl (6.2-12.0); NRBC Flagged by Analyzer 0.2 % (0-5); Platelet Count 469 K/mm3 (150-450); RBC Distribution Width CV 16.4 % (11.6-14.6); RBC Distribution Width SD 55.3 fl (35.1-43.9); Red Blood Count 2.89 M/mm3 (4.2-5.4); White Blood Count 19.1 K/mm3 (4.4-11.0)
[2024-10-16 01:33] LABS: Prothrombin Time (Protime)PT. 29.0 SECONDS (11.7-14.9)
[2024-10-16 01:34] LABS: Partial Thromboplast Time 42.9 Seconds (24.1-36.2)
[2024-10-16] MEDS: 0.9% Normal Saline (1000mL) 1,000 ML 1000 ML IV (01:36)
[2024-10-16 01:43] LABS: Lipase 7 U/L (13-75)
[2024-10-16 01:43] LABS: Ammonia 28.6 umol/L (11-51)
--- NOTE | 2024-10-16 01:50 | RAD_ITS ---
PROCEDURE: CHEST 1 VIEW (PORTABLE) 10/16/2024 REASON FOR EXAM: COUGH TECHNIQUE: Frontal view of the chest. COMPARISON: CT SCAN ON 10/06/2024. CHEST RADIOGRAPH ON 09/20/2024. FINDINGS: The lungs are expanded. There is no demonstrated parenchymal abnormality. There is no demonstrated pleural abnormality. Enlarged cardiac silhouette. Normal mediastinum and kumar. Normal visualized pulmonary arteries. Atheromatous plaques of the visualized aortic arch and descending thoracic aorta. Diffuse spondylosis of the visualized thoracic spine. Normal visualized ribs, clavicles. Degenerative joint disease. There is no demonstrated abnormality of the visualized soft tissue structures of the upper abdomen. RAD/Chest 1 View (Portable) IMPRESSION: No evidence for acute abnormality. [facility]
[2024-10-16 01:53] LABS: AST(SGOT) 36 U/L (<=31); Alanine Aminotransfer ALT/SGPT 9 U/L (<=34); Albumin, Serum 0.9 g/dL (3.5-5.0); Alkaline Phosphatase 100 U/L (35-104); BUN 36 mg/dL (4-19); BUN/Creat Ratio 9.9 RATIO (10-20); Chloride 113 mmol/L (98-108); Estimated Creatinine Clearance 23.54 ml/min (50-250); Globulin 2.1 g/dL (2.2-4.2); Glucose 60 mg/dL (70-99); Potassium 3.9 mmol/L (3.3-5.1)
[2024-10-16 02:03] LABS: Anion Gap 13 (5-15); Calcium,Total 4.6 mg/dL (7.6-11.0); Carbon Dioxide 9.2 mmol/L (21.0-32.0)
[2024-10-16] MEDS: Sodium Bicarbonate 8.4% 50 ML Syringe 50 MEQ IV (02:24)
[2024-10-16 02:28] LABS: SITE Not entered; VBG BASE EXCESS -5 mmol/L (-1.0-3.5); VBG PO2 37 mmHg (25-40); VBG SO2 68 % (50-70); VBG TCO2 22 mmol/L (23-33)
[2024-10-16 02:47] LABS: Mucous, Urine 0 SEEN /hpf (<or=2+); Red Blood Cells-Urine 0 SEEN /hpf (0-5)
[2024-10-16 02:52] LABS: Color, Urine Amber (Yellow); Glucose, Dipstick Normal (Normal); Ketone-Dipstick 5 mg/dl (Negative); Leukocyte Esterase-Dipstick 500 /ul (Negative); Nitrite-Dipstick Positive (Negative); Occult Blood-Urine 250 /ul (Negative); Protein-Dipstick 100 mg/dl (Negative); Specific Gravity, Urine 1.025 (1.002-1.030)
[2024-10-16 02:58] LABS: Magnesium 1.5 mg/dL (1.5-2.2)
[2024-10-16 03:08] LABS: Urine Bilirubin Dipstick 1 mg/dL (Negative)
[2024-10-16 03:14] LABS: Squamous Epithelial Cells - UA 10-25 SEEN /hpf (5-10)
[2024-10-16] MEDS: Cefepime HCl 2 GM in 0.9% Normal Saline (100mL MB+) 100 ML IV (03:54)
--- NOTE | 2024-10-16 05:01 | PCM.HP.STD ---
HPI - General General Date of Admission: 10/16/24 Date of Service: 10/16/24 Chief Complaint: Change in mental status, abnormal labs HPI Narrative COURTNEY CARMEN, is a 54 F who presents to the emergency room due to change in mental status and abnormal labs at outside pen[facility]iary. Patient has significant past medical history of recent hospitalization for right upper quadrant abdominal pain and diagnosis of liver cancer with elevated tumor markers and was seen by oncology during her recent hospitalization. She was also treated for urinary tract infection that was deemed to be Pseudomonas and given 7 days of meropenem during her recent hospitalization as well. In the penitentiary the patient became more confused and labs out there at the facility indicated an elevated white blood cell count of 20,000 and a creatinine greater than 5 which is markedly elevated from her baseline. In the emergency room her CBC showed a white count of 19.1, hemoglobin 8.7, hematocrit 26.6, platelets 469, sodium 135, potassium 3.9, chloride 113, bicarb 9.2, BUN 36, creatinine 3.6, calcium 4.6, INR 2.7, lactate 2.2, magnesium 1.5, AST 36, ALT 9, total bilirubin 1.17 and albumin 0.9. Patient is a rather poor historian at present time but in her restlessness was able to communicate that she was wanting her CPAP machine. Urinalysis was positive for urinary tract infection as a primary source for her current infection and was started on cefepime due to recent diagnosis of Pseudomonas in her urine. Unable to obtain CODE STATUS from patient at this time we will continue her previous CODE STATUS designation. [facility] Medical History Toxic metabolic encephalopathy MARYANA (acute kidney injury) Noncompliance with medication regimen Acute hypoxic on chronic hypercapnic respiratory failure Myxedema coma Elevated serum creatinine Sinus bradycardia on ECG Kidney failure MARYANA (acute kidney injury) Fatigue MARYANA (acute kidney injury) Walker as ambulation aid Ambulates with cane Low iron History of renal disease High cholesterol DVT (deep venous thrombosis) PONV (postoperative nausea and vomiting) Stroke/cerebrovascular accident Sleep apnea Fall Cardiology follow-up encounter Scalp hematoma Pulmonary embolism Post-menopausal Thyroid disease Injury of head and neck Dietary restriction Difficulty swallowing BiPAP (biphasic positive airway pressure) dependence COPD (chronic obstructive pulmonary disease) Shortness of breath on exertion Leg cramps History of pain when walking History of edema History of echocardiogram History of stress test Syncope Abnormal glucose Noncompliance DAVY treated with BiPAP UTI (urinary tract infection) Vitamin D deficiency Restless leg syndrome Vitamin B12 deficiency Iron deficiency anemia History of chronic back pain Wears glasses Arthritis Non-smoker Hydronephrosis Depression Anemia Migraine headache Chronic kidney disease Diabetes mellitus Gout Celiac disease Hyperlipidemia GERD (gastroesophageal reflux disease) Dyspnea on exertion Chest pain Hypersomnia Cardiac murmur Microcytic anemia Hypertension Morbid obesity with BMI of 40.0-44.9, adult Asthma Hypothyroidism Anxiety Home Medications ?Medication ?Instructions ?Recorded ?Last Taken ?Type insulin lispro 100 unit/mL 1 sliding scale dose subcut ACHS 06/27/24 06/27/24 History subcutaneous pen (Humalog KwikPen diabetes (U-100) Insulin) rimegepant 75 mg disintegrating 75 mg PO DAILY PRN migraine 06/27/24 Unknown History tablet (Nurtec ODT) citalopram 20 mg tablet 40 mg (2 x 20 mg) PO DAILY 08/08/24 06/27/24 Rx depression #1 TAB budesonide-formoterol HFA 160 2 puff inhalation BID 09/02/24 Unknown History mcg-4.5 mcg/actuation aerosol inhaler (Symbicort) cyclobenzaprine 5 mg tablet 5 mg PO QPM 09/02/24 Unknown History diclofenac sodium 3 % topical gel 1 ea topical BID PRN PRN pain 09/02/24 Unknown History (scale score 1-3) fluticasone propionate 50 2 spray intranasal BID allergies 09/02/24 Unknown History mcg/actuation nasal spray,suspension gabapentin 300 mg capsule 300 mg PO TID 09/02/24 Unknown History galcanezumab-gnlm 120 mg/mL 120 mg subcut QMONTH 09/02/24 Unknown History subcutaneous pen injector (Emgality Pen) ganciclovir 0.15 % eye gel (Zirgan) 1 drp RIGHT EYE .COMPLEX eye med 09/02/24 Unknown History lorazepam 0.5 mg tablet 0.5 mg PO TID PRN anxiety 09/02/24 Unknown History moxifloxacin 0.5 % eye drops 1 drp RIGHT EYE Q2H 09/02/24 Unknown History atorvastatin 40 mg tablet 40 mg PO QHS cholestrol #90 tabs 09/24/24 Unknown Rx isosorbide mononitrate 30 mg 30 mg PO DAILY #90 tabs 09/24/24 Unknown Rx tablet,extended release 24 hr dicyclomine 20 mg tablet 20 mg PO Q6H PRN PRN abdominal 09/25/24 Unknown Rx discomfort #12 tabs levothyroxine 200 mcg capsule 200 mcg PO QDAY 09/25/24 Unknown History levothyroxine 25 mcg capsule 25 mcg PO QDAY 09/25/24 Unknown History apixaban 5 mg tablet (Eliquis) 5 mg PO BID #180 tabs 10/09/24 Unknown Rx losartan 100 mg tablet 100 mg PO QDAY 10/09/24 Unknown History lactulose 10 gram/15 mL oral 20 g (30 mL) PO TID PRN PRN 10/10/24 Unknown Rx solution constipation #3,000 mL oxycodone 5 mg tablet 5 mg PO Q4H PRN PRN Pain Score 10/10/24 Unknown Rx 6-10 3 days #18 tabs ciprofloxacin HCl 0.3 % eye drops 2 drp RIGHT EYE 4X/DAY 10/16/24 Unknown History tizanidine 2 mg tablet 2 mg PO BID muscle spasm 10/16/24 Unknown History tobramycin 0.3 % eye drops 1 drp RIGHT EYE Q6H 10/16/24 Unknown History tramadol 50 mg tablet 50 mg PO 4X/DAY PRN pain 10/16/24 Unknown History Allergy/AdvReac Type Severity Reaction Status Date / Time hydrochlorothiazide AdvReac Intermediate Contributes Verified 10/16/24 00:29 to gout naproxen (From Naprosyn) AdvReac Intermediate Nausea Verified 10/16/24 00:29 aspirin AdvReac Nausea Verified 10/16/24 00:29 Penicillins AdvReac Other Verified 10/16/24 00:29 Family History Father , Age 72 Hypertension Mother CAD (coronary artery disease) Myocardial infarction, Onset Age: 55 Hypertension Sister CAD (coronary artery disease) Brother Cancer Surgical History History of cardiac catheterization History of History of carpal tunnel surgery of right wrist History of carpal tunnel surgery of left wrist Hx of cystoscopy History of left heart catheterization (11/11/20) history of uterine ablation Social History household members: spouse housing: apartment Smoking Status: Never smoker alcohol intake: never substance use type: does not use caffeine: No ROS Review of Systems ROS Unobtainable: due to mental status Vital Signs Vital Signs Vital Signs: 10/16/24 00:25 10/16/24 00:25 10/16/24 00:30 Temperature 98.1 F Temperature Source Oral Pulse Rate 75 Respiratory Rate 19 H Respiratory Pattern Normal Blood Pressure 120/102 H Blood Pressure Mean 108 Pulse Ox 98 Oxygen Delivery Method Room Air 10/16/24 02:25 10/16/24 03:24 10/16/24 03:29 Temperature 97.1 F L 97.1 F L Temperature Source Core Pulse Rate 85 69 69 Respiratory Rate 23 H 18 18 Respiratory Pattern Blood Pressure 136/113 H 134/104 H 134/104 H Blood Pressure Mean 120 114 114 Pulse Ox 90 93 93 Oxygen Delivery Method Room Air Room Air 10/16/24 04:00 10/16/24 04:29 Temperature 97.3 F L Temperature Source Core Pulse Rate 82 79 Respiratory Rate 21 H 19 H Respiratory Pattern Blood Pressure 149/101 H 115/94 H Blood Pressure Mean 117 101 Pulse Ox 94 95 Oxygen Delivery Method Room Air Room Air Weight Weight: 279 lb 1.683 oz Body Mass Index (BMI) 47.9 Physical Exam Const alert Orientation / Consciousness: confused and lethargic HEENT normocephalic and head/scalp atraumatic Mouth: dry mucous membranes Eyes PERRL Neck no lymphadenopathy Lymph Lymphatic: no lymphadenopathy noted Resp normal respiratory effort, normal air movement and clear to auscultation bilaterally Cardio regular rate, regular rhythm, S1 normal heart sound and S2 normal heart sound GI soft to palpation Inspection: abdominal distention Palpation: tender RUQ Extremity normal capillary refill General Extremity: Negative for edema Skin General Skin Exam: no breakdown Neuro Speech: speech abnormal Details: Positive for garbled Psych Psych Narrative: Unable to assess Results Lab / Micro Data 10/16/24 01:05 10/16/24 01:05 Labs: Laboratory Results - last 24 hr 10/16/24 01:05: WBC 19.1 H, RBC 2.89 L, Hgb 8.7 L, Hct 26.6 L, MCV 92.0, MCH 30.1, MCHC 32.7, RDW Std Deviation 55.3 H, RDW Coeff of Alfredo 16.4 H, Plt Count 469 H, MPV 9.8, Immature Gran % (Auto) 2.300 H, Neut % (Auto) 86.7 H, Lymph % (Auto) 6.8 L, [place] % (Auto) 3.9, Eos % (Auto) 0.1, Baso % (Auto) 0.2, Absolute Neuts (auto) 16.5 H, Absolute Lymphs (auto) 1.29, Nucleated RBC % 0.2, Sodium 135, Potassium 3.9, Chloride 113 H, Carbon Dioxide 9.2 L*, Anion Gap 13, BUN 36 H, Creatinine 3.60 H, Estim Creat Clear Calc 23.54 L, Est GFR (MDRD) Non-Af 14 L, BUN/Creatinine Ratio 9.9 L, Glucose 60 L, Calcium 4.6 L*, Phosphorus 5.4 H, Magnesium 1.5, Total Bilirubin 0.17, AST 36 H, ALT 9, Alkaline Phosphatase 100, Total Protein 3.0 L, Albumin 0.9 L, Globulin 2.1 L, Albumin/Globulin Ratio 0.4 L, Lipase 7 L 10/16/24 01:12: PT 29.0 H, INR 2.7, APTT 42.9 H, Lactic Acid 2.2 H*, Ammonia 28.6 10/16/24 02:40: Urine Color Angelica, Urine Clarity Cloudy, Urine pH 5.0, Ur Specific [place] 1.025, Urine Protein 100 H, Urine Glucose (UA) Normal, Urine Ketones 5 H, Urine Occult Blood 250 H, Urine Nitrite Positive H, Urine Bilirubin 1 H, Urine Urobilinogen 1 H, Ur Leukocyte Esterase 500 H, Urine RBC 0 SEEN, Urine WBC >100 SEEN, Ur Squamous Epith Cells 10-25 SEEN, Urine Bacteria 3+, Urine Mucus 0 SEEN 10/16/24 03:48: POC Glucose 84 ABG Data ABG results: ABG 10/16/24 02:25 Specimen Type MALISSA Sample Site Not entered VBG pH 7.35 VBG pO2 37 VBG HCO3 21 L VBG Total CO2 22 L VBG O2 Sat (Calc) 68 VBG Base Excess -5 L POC Mix VBG pCO2 Pt Tmp 37.1 L O2 Delivery Device Room Air Imaging Radiology Impression Abdomen/Pelvis CT 10/16/24 00:49 IMPRESSION: Unchanged hepatomegaly with hepatic steatosis. Unchanged ill-defined hypodense mass in the segment 4B of the liver, probably neoplastic pathology. Unchanged moderate ascites. Unchanged multifocal nodular omental/peritoneal thickening, possibly secondary to neoplastic infiltration. Mild gastroparesis/gastritis. Unchanged anasarca/third-spacing. Unchanged scattered bilateral peripelvic renal cysts. Reading Location: [place] [address] Chest X-Ray 10/16/24 01:50 IMPRESSION: No evidence for acute abnormality. Reading Location: [place] [address] Assessment & Plan Assessment/Plan (1) Sepsis: (2) Hypoglycemia associated with diabetes: (3) Hypocalcemia: (4) Lactic acidosis: (5) Acute kidney injury: (6) Liver mass, left lobe: (7) Obstructive sleep apnea syndrome in adult: (8) Severe hypothyroidism: PLAN: Plan 1 sepsis secondary to urinary tract infection?admit patient to progressive care unit continue IV hydration and cefepime initiated in the emergency room due to presumed UTI infection with Pseudomonas. Repeat CBC, BMP in a.m. 2. Acute on chronic renal failure?IV hydration as above with normal saline and repeat BMP in a.m. 3. Hypocalcemia?patient received dose of calcium gluconate in the emergency room setting and will continue to follow calcium level on BMP 4. Obstructive sleep apnea?patient to continue CPAP treatment while inpatient 5. Hypothyroidism?continue Synthroid and check TSH level 6. Liver mass left lobe?patient was set up to be followed as an outpatient by Dr. Cee for oncology management. 7. Obesity?complicating acute care 8. COPD?continue oxygen support to maintain greater than 90% 9. CODE STATUS?DNR CCA DO NOT INTUBATE per last admission note 10. Hypomagnesia -replace magnesium and repeat Mg level. 11. DVT prophylaxis?SCDs due to acute renal failure will not use Lovenox at this time. Charges/Coding Visit Charges Inpatient E&M: 81208 Init Hosp L2
[2024-10-16 05:20] LABS: Reflex Lactate? Y
--- NOTE | 2024-10-16 05:43 | CPS ---
[2729] Pt. has documented history of DAVY with use of BiPAP. Pt. stated that she'd like to wear BiPAP at this time per comfort reasons. agreeable.
[2024-10-16] MEDS: 0.9% Normal Saline (1000mL) 1,000 ML 125 ML IV ×2 (06:40→14:59)
--- NOTE | 2024-10-16 09:05 | PN.HOSP_ITS ---
Reason for Visit Chief Complaint: Change in mental status, abnormal labs Objective Data Objective Data Vital Signs: Vital Signs Temp Pulse Resp BP Pulse Ox O2 Del Method O2 Flow Rate 97.5 F L 65 18 138/96 H 95 CPAP 2 10/16/24 06:30 10/16/24 06:30 10/16/24 06:30 10/16/24 06:30 10/16/24 06:30 10/16/24 08:06 10/16/24 08:06 Oxygen Flow Rate (L/min) 2 Oxygen Delivery Method CPAP Weight: 125.4 kg Body Mass Index (BMI) 47.4 Intake & Output: Intake and Output for Last 24 Hours 10/14/24 10/15/24 10/16/24 23:59 23:59 23:59 Intake Total 1100 / 1100 Balance 1100 / 1100 Lab / Micro Data 10/16/24 01:05 10/16/24 01:05 Labs: Laboratory Results - last 24 hr 10/16/24 01:05: WBC 19.1 H, RBC 2.89 L, Hgb 8.7 L, Hct 26.6 L, MCV 92.0, MCH 30.1, MCHC 32.7, RDW Std Deviation 55.3 H, RDW Coeff of Alfredo 16.4 H, Plt Count 469 H, MPV 9.8, Immature Gran % (Auto) 2.300 H, Neut % (Auto) 86.7 H, Lymph % (Auto) 6.8 L, [place] % (Auto) 3.9, Eos % (Auto) 0.1, Baso % (Auto) 0.2, Absolute Neuts (auto) 16.5 H, Absolute Lymphs (auto) 1.29, Nucleated RBC % 0.2, Sodium 135, Potassium 3.9, Chloride 113 H, Carbon Dioxide 9.2 L*, Anion Gap 13, BUN 36 H, Creatinine 3.60 H, Estim Creat Clear Calc 23.54 L, Est GFR (MDRD) Non-Af 14 L , BUN/Creatinine Ratio 9.9 L, Glucose 60 L, Calcium 4.6 L*, Phosphorus 5.4 H, Magnesium 1.5, Total Bilirubin 0.17, AST 36 H, ALT 9, Alkaline Phosphatase 100, Total Protein 3.0 L, Albumin 0.9 L, Globulin 2.1 L, Albumin/Globulin Ratio 0.4 L , Lipase 7 L 08/19/25 01:12: PT 29.0 H, INR 2.7, APTT 42.9 H, Lactic Acid 2.2 H*, Ammonia 28.6 10/16/24 02:40: Urine Color Angelica, Urine Clarity Cloudy, Urine pH 5.0, Ur Specific [place] 1.025, Urine Protein 100 H, Urine Glucose (UA) Normal, Urine Ketones 5 H, Urine Occult Blood 250 H, Urine Nitrite Positive H, Urine Bilirubin 1 H, Urine Urobilinogen 1 H, Ur Leukocyte Esterase 500 H, Urine RBC 0 SEEN, Urine WBC >100 SEEN, Ur Squamous Epith Cells 10-25 SEEN, Urine Bacteria 3+, Urine Mucus 0 SEEN 10/16/24 03:48: POC Glucose 84 10/16/24 05:34: Lactic Acid 1.6 10/16/24 06:30: POC Glucose 80 10/16/24 07:40: POC Glucose 88 ABG Data ABG results: ABG 10/16/24 02:25 Specimen Type MALISSA Sample Site Not entered VBG pH 7.35 VBG pO2 37 VBG HCO3 21 L VBG Total CO2 22 L VBG O2 Sat (Calc) 68 VBG Base Excess -5 L POC Mix VBG pCO2 Pt Tmp 37.1 L O2 Delivery Device Room Air Radiography Diagnostic Testing: Radiology Impression Abdomen/Pelvis CT 10/16/24 00:49 IMPRESSION: Unchanged hepatomegaly with hepatic steatosis. Unchanged ill-defined hypodense mass in the segment 4B of the liver, probably neoplastic pathology. Unchanged moderate ascites. Unchanged multifocal nodular omental/peritoneal thickening, possibly secondary to neoplastic infiltration. Mild gastroparesis/gastritis. Unchanged anasarca/third-spacing. Unchanged scattered bilateral peripelvic renal cysts. Reading Location: [place] [address] Chest X-Ray 10/16/24 01:50 IMPRESSION: No evidence for acute abnormality. Reading Location: [place] [address] Physical Exam Narrative GENERAL: Patient moaning and groaning in bed but not following any purposeful, HEENT: Atraumatic; normocephalic EYES; Anicteric, Normal Conjunctiva NECK; supple, normal thyroid, RESPIRATORY: Diminished to auscultation CARDIOVASCULAR: Regular S1 S2, GI: soft, normoactive bowel sounds, : No Renal angle tenderness; EXTREMITIES: No edema, no clubbing, MUSCULOSKELETAL: no muscle wasting NEURO: Appears to be moving all her extremities SKIN: No Rash PSYCH; delirious Assessment & Plan Assessment/Plan (1) Sepsis: PLAN: Plan Patient is a 54-year-old lady with recent recurrent admissions, who was discharged from the hospital on 10/27/2024 after admission for Abdominal distention and ascites. An assessment of liver cancer with possible omental metastasis made. Patient was discharged to custodial facility brought to the emergency department with decreased level of sensorium. An assessment of sepsis secondary to urinary tract infection was made admitted to a monitored bed for further management Acute metabolic encephalopathy ? Secondary to sepsis admitted to a monitored bed for treatment of the underlying etiology. Also ordered ABG 2.Sepsis ? Secondary to acute complicated UTI. Patient previous urine culture from 09/17/2024 grew Pseudomonas. 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 Patient had been seen by oncology during the previous admission plan was for patient to followed up as outpatient once pathology result came back. Did review patient's cytology consistent with liver CA reconsulted oncology 4. Acute kidney injury ? Patient creatinine on discharge was 1.12 on admission was 3.6. Potential offending medications held patient started on IV hydration with serial monitoring of BMPs ordered 5. Severe metabolic acidosis ? Secondary to MARYANA and sepsis plan is to treat the underlying etiology 6. Suspected myxedema coma ? Patient has history of hypothyroidism With recent past history of myxedema coma. Repeated TSH stat given patient decreased level of sensorium to rule out myxedema coma if TSH is elevated plan will be to transfer patient to the intensive care unit. TSH apparently unable to be drawn by lab decision was therefore made to treat the patient empirically as a case of myxedema coma started patient on levothyroxine for 100 mcg x 1 and subsequently 100 mcg daily. Also started patient on hydrocortisone 100 mg nightly decision made to transfer to the intensive care 7. Class III obesity with BMI of 47.5 ? Complicating care . 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 Patient is on apixaban 8. Essential hypertension ? Plan is to resume patient oral medications once level of sensorium improves and patient is safe to take oral meds in the meantime ordered hydralazine 10 mg every 6 hours as needed for systolic blood pressure greater than 160 9. Diabetes mellitus type II with known complications including diabetic gastroparesis and diabetic polyneuropathy -patient's oral hypoglycemics held. Placed on, Accu-Cheks a.c. and at bedtime and covered with sliding scale insulin 10. Depression with anxiety ? Patient was on trazodone as well as citalopram held on admission given her decreased level of sensorium 11. Obstructive sleep apnea ? Patient is apparently supposed to be on PAP therapy at night 12. COPD ? Currently not in exacerbation aerosol treatment as needed 13. Chronic pain syndrome ? Patient was on tramadol and tizanidine both held given her presentation 14. DVT prophylaxis ? Patient is on apixaban Critical time spent in the patient's overall evaluation,decision-making process, review of diagnostic data, adjustment of management, discussion with other providers, nursing nursing and ancillary staff involved in patient's care documentation, 55 Minutes Charges/Coding Visit Charges Inpatient E&M: 33785 Init Hosp L1
[2024-10-16 13:12] LABS: Allen Test Positive; Base Excess -5 mmol/L (-2 to +2); FI02 3.0; PO2 166 mmHG (75-100); SITE L Radial; SO2 100 % (95-99)
[2024-10-16] MEDS: Albuterol 2.5 MG/3 ML VIAL.NEB. INHALATION ×2 (13:25→19:44)
[2024-10-16 17:00] LABS: AST(SGOT) 58 U/L (<=31); Alanine Aminotransfer ALT/SGPT 18 U/L (<=34); Albumin, Serum 1.9 g/dL (3.5-5.0); Alkaline Phosphatase 170 U/L (35-104); Anion Gap 16 (5-15); BUN 59 mg/dL (4-19); BUN/Creat Ratio 9.3 RATIO (10-20); Calcium,Total 8.3 mg/dL (7.6-11.0); Carbon Dioxide 17.8 mmol/L (21.0-32.0); Chloride 94 mmol/L (98-108); Estimated Creatinine Clearance 13.37 ml/min (50-250); Globulin 3.6 g/dL (2.2-4.2); Glucose 96 mg/dL (70-99); Magnesium 2.2 mg/dL (1.5-2.2); Potassium 6.9 mmol/L (3.3-5.1)
--- NOTE | 2024-10-16 17:00 | NURSING ---
Patient received from PCU to [id number]. Patient transferred to new bed and placed on wash driller. Patient is moaning and calling out continuously, does not follow commands or track to voice, words are heavily garbled and intelligible. Withdraws purposefully from painful stimulation.
--- NOTE | 2024-10-16 17:52 | NURSING ---
Dr Busch at bedside talking to patient's family ( Mother, Ex-) about patients current status and prognosis. Dr Busch answered questions and addressed their concerns. Family decided that patient would not want dialysis, intubated, or resuscitation. Family then decided to change patient's code status to DNR-CC and to consult hospice. Dr Busch acknowledged their wishes and entered orders.
[2024-10-16] MEDS: Budesonide Respules 0.5 MG/2 ML AMPUL.NEB. INHALATION (19:44)
--- NOTE | 2024-10-16 23:20 | CPS ---
Pt's family requested to have her sleep without BiPAP tonight.
[2024-10-17] VITALS: BP 101/52; PULSE 86; RESP 15; TEMP 37.5; O2SAT 99
[2024-10-17 02:00] VITALS: BP 70/39; PULSE 82; RESP 14; O2SAT 98
[2024-10-17 04:00] VITALS: BP 86/66; PULSE 87; RESP 19; O2SAT 97
[2024-10-17 06:42] VITALS: PULSE 86; RESP 16; O2SAT 98
[2024-10-17] MEDS: Albuterol 2.5 MG/3 ML VIAL.NEB. INHALATION (06:50)
[2024-10-17] MEDS: Budesonide Respules 0.5 MG/2 ML AMPUL.NEB. INHALATION (06:50)
--- NOTE | 2024-10-17 07:28 | PCM.PN.HOSP ---
Reason for Visit Chief Complaint: Change in mental status, abnormal labs Subjective Subjective Patient was transferred to the intensive care unit with worsening mental status as well as kidney function with hyperkalemia. Patient had empirically been started on treatment for suspected myxedema coma. TSH obtained however was not at a level consistent with myxedema coma. Had an extensive discussion with patient's family including mom and ex- decision was made to change patient CODE STATUS to DNR CC and consult placed to the hospice service. Patient was subsequently started on palliative care symptom management Objective Data Objective Data Vital Signs: Vital Signs Temp Pulse Resp BP Pulse Ox O2 Del Method O2 Flow Rate 99.5 F H 86 16 86/66 L 98 Room Air 2 10/17/24 00:00 10/17/24 06:42 10/17/24 06:42 10/17/24 04:00 10/17/24 06:42 10/17/24 06:42 10/16/24 19:44 Oxygen Flow Rate (L/min) 2 Oxygen Delivery Method Room Air Weight: 125.4 kg Body Mass Index (BMI) 47.4 Intake & Output: Intake and Output for Last 24 Hours 10/15/24 10/16/24 10/17/24 23:59 23:59 23:59 Intake Total 3100 / 3100 0 / 0 Output Total 0 / 10 10 10 Balance 3100 / 3090 -10 / -10 Lab / Micro Data 10/16/24 01:05 10/16/24 15:30 Labs: Laboratory Results - last 24 hr 10/16/24 07:40: POC Glucose 88 10/16/24 11:43: POC Glucose 85 10/16/24 13:25: Sodium Cancelled, Potassium Cancelled, Chloride Cancelled, Carbon Dioxide Cancelled, Anion Gap Cancelled, BUN Cancelled, Creatinine Cancelled, Estim Creat Clear Calc Cancelled, Est GFR (MDRD) Non-Af Cancelled, BUN/Creatinine Ratio Cancelled, Glucose Cancelled, Calcium Cancelled, Phosphorus Cancelled, Magnesium Cancelled, Total Bilirubin Cancelled, AST Cancelled, ALT Cancelled, Alkaline Phosphatase Cancelled, Total Protein Cancelled, Albumin Cancelled, Globulin Cancelled, Albumin/Globulin Ratio Cancelled, TSH Cancelled 10/16/24 15:30: Sodium 128 L, Potassium 6.9 H*, Chloride 94 L, Carbon Dioxide 17.8 L, Anion Gap 16 H, BUN 59 H, Creatinine 6.30 H, Estim Creat Clear Calc 13.37 L, Est GFR (MDRD) Non-Af 7 L, BUN/Creatinine Ratio 9.3 L, Glucose 96, Calcium 8.3, Phosphorus 9.6 H*, Magnesium 2.2, Total Bilirubin 0.36, AST 58 H, ALT 18, Alkaline Phosphatase 170 H, Total Protein 5.4 L, Albumin 1.9 L, Globulin 3.6, Albumin/Globulin Ratio 0.5 L, TSH 9.430 H 10/16/24 17:23: POC Glucose 94 ABG Data ABG results: ABG 10/16/24 13:09 Specimen Type ART Sample Site L Radial pH 7.42 Bicarbonate Actual 20.0 L Total CO2 21 Base Excess -5 L O2 Saturation 100 H O2 % 3.0 ABG pCO2 31.2 L ABG pO2 166 H Justin Test Positive O2 Delivery Device CPAP Vent Mode Not entered Physical Exam Narrative GENERAL: Patient resting comfortably HEENT: Atraumatic; normocephalic EYES; Anicteric, Normal Conjunctiva NECK; supple, normal thyroid, RESPIRATORY: Diminished to auscultation CARDIOVASCULAR: Regular S1 S2, GI: soft, normoactive bowel sounds, : No Renal angle tenderness; EXTREMITIES: No edema, no clubbing, MUSCULOSKELETAL: no muscle wasting NEURO: No lateralizing signs SKIN: No Rash Assessment & Plan Assessment/Plan (1) Sepsis: PLAN: Plan Patient is a 54-year-old lady with recent recurrent admissions, who was discharged from the hospital on 10/27/2024 after admission for Abdominal distention and ascites. An assessment of liver cancer with possible omental metastasis made. Patient was [facility] to [facility] brought to the emergency department with decreased level of sensorium. An assessment of sepsis secondary to urinary tract infection was made admitted to a monitored bed for further management 1. Acute metabolic encephalopathy ? Secondary to sepsis admitted to a monitored bed for treatment of the underlying etiology. Also ordered ABG ? Patient CODE STATUS was changed to DNR CC palliative care comfort measures subsequently initiated 2. Sepsis ? Secondary to acute complicated UTI. Patient previous urine culture from 09/17/2024 grew Pseudomonas. 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 Patient had been seen by oncology during the previous admission plan was for patient to followed up as outpatient once pathology result came back. Did review patient's cytology consistent with liver CA reconsulted oncology 4. Acute kidney injury ? Patient creatinine on discharge was 1.12 on admission was 3.6. Potential offending medications held patient started on IV hydration with serial monitoring of BMPs ordered ? 10/17/2024; patient kidney function did worsen. Had ordered urine and bladder ultrasound started IV fluid with consultation placed to nephrology. CODE STATUS was changed to DNR CC subsequently nephrology involved 5. Severe metabolic acidosis ? Secondary to MARYANA and sepsis plan is to treat the underlying etiology 6. Hyperkalemia ? Secondary to worsening kidney function. Initiated treatment with glucose insulin as well as calcium gluconate. An order has been given for an NG tube to be placed with Kayexalate administered the last order had to be canceled after patient was made DNR Comfort Care arrest 7. Suspected myxedema coma ? Patient has history of hypothyroidism With recent past history of myxedema coma. Repeated TSH stat given patient decreased level of sensorium to rule out myxedema coma if TSH is elevated plan will be to transfer patient to the intensive care unit. TSH apparently unable to be drawn by lab decision was therefore made to treat the patient empirically as a case of myxedema coma started patient on levothyroxine for 100 mcg x 1 and subsequently 100 mcg daily. Also started patient on hydrocortisone 100 mg nightly decision made to transfer to the intensive care ? 09/2024; patient TSH level not consistent with myxedema coma. 8. Class III obesity with BMI of 47.5 ? Complicating care 9. 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 Patient is on apixaban 10. Essential hypertension ? Plan is to resume patient oral medications once level of sensorium improves and patient is safe to take oral meds in the meantime ordered hydralazine 10 mg every 6 hours as needed for systolic blood pressure greater than 160 11. Diabetes mellitus type II with known complications including diabetic gastroparesis and diabetic polyneuropathy -patient's oral hypoglycemics held. Placed on, Accu-Cheks a.c. and at bedtime and covered with sliding scale insulin 12. Depression with anxiety ? Patient was on trazodone as well as citalopram held on admission given her decreased level of sensorium 13. Chronic pain syndrome ? Patient was on tramadol and tizanidine both held given her presentation 14. Obstructive sleep apnea ? Patient is apparently supposed to be on PAP therapy at night 15. COPD ? Currently not in exacerbation aerosol treatment as needed 16. DVT prophylaxis ? Patient is on apixaban Time spent in the patient's overall evaluation,decision-making process, review of diagnostic data, adjustment of management, discussion with other providers, nursing nursing and ancillary staff involved in patient's care documentation, 35 Minutes Charges/Coding Visit Charges Inpatient E&M: 03818 Subs Hosp L2
[2024-10-17 08:00] VITALS: BP 75/47; PULSE 88; RESP 14; TEMP 37.2; O2SAT 99
--- NOTE | 2024-10-17 10:00 | CASEMGMT ---
Addendum entered by Lamar Fabian 10/17/24 10:07: JACOB updated DCA on hospice consult. EVAN White Original Note: Social Work- JACOB called hospice to confirm referral and consult time. Leah at hospice reports that hospice nurse Shelley will meet with family today at 11:30-12. JACOB updated ICU RNCM. JACOB remains available to follow. EVAN White
--- NOTE | 2024-10-17 10:05 | CASEMGMT ---
Discharge Planning Avenue updated that pt has hospice consult. Ena Kaur DC Planning Asst.
--- NOTE | 2024-10-17 11:10 | CASEMGMT ---
Social Work- SW met with pt mom, as she arrived to the unit, to offer support. Pt mom requested update from bedside nurse; SW coordinated with bedside nurse. SW assisted pt mom to room; no additional needs at this time. SW remains available to follow. Pt hospice consult at 11:30-12. EVAN White
--- NOTE | 2024-10-17 13:03 | CASEMGMT ---
Addendum entered by Lamar Fabian 10/17/24 13:20: SW received work excuse for son from charge nurse and provided excuse to son. Pt family report no additional needs at this time. SW remains available to follow. EVAN White Original Note: Social Work- SW met with hospice nurse following consult. Pt will transport to [facility] at 3PM. Pt is imminent and may not make transport per hospice nurse. In the event that pt passes, nursing notified to call hospice and provide update. SW completed transport form and placed on chart. JACOB coordinated with bedside nurse for work excuse for family member. EVAN White
--- NOTE | 2024-10-17 13:28 | DS.PCM_ITS ---
Providers Date of Admission: 10/16/24 Primary Care Physician: Dr. Yair Pressley MD Consultations 10/16/24 17:57 Consult: Hospice / Palliative Care Routine Consulting Provider: [facility] Reason for Consult: Metastatic liver cancer EMERGENT Consult: No MD Notified: Yes Date Notified: 10/16/24 Time Notified: 17:57 Method of Notification: Answering Service Reason For Visit: SEPSIS, UTI, MENTAL STATUS CHANGE Diagnosis Discharge Diagnosis (1) Sepsis: Status: Acute Code(s): A41.9 - Sepsis, unspecified organism Plan Patient is a 54-year-old lady with recent recurrent admissions, who was discharged from the hospital on 10/27/2024 after admission for Abdominal distention and ascites. An assessment of liver cancer with possible omental metastasis made. Patient was discharged to [facility] facility brought to the emergency department with decreased level of sensorium. An assessment of sepsis secondary to urinary tract infection was made admitted to a monitored bed for further management 1. Acute metabolic encephalopathy ? Secondary to sepsis admitted to a monitored bed for treatment of the underlying etiology. Also ordered ABG ? Patient CODE STATUS was changed to DNR CC palliative care comfort measures subsequently initiated 2. Sepsis ? Secondary to acute complicated UTI. Patient previous urine culture from 09/17/2024 grew Pseudomonas. 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 Patient had been seen by oncology during the previous admission plan was for patient to followed up as outpatient once pathology result came back. Did review patient's cytology consistent with liver CA reconsulted oncology 4. Acute kidney injury ? Patient creatinine on discharge was 1.12 on admission was 3.6. Potential offending medications held patient started on IV hydration with serial monitoring of BMPs ordered ? 10/17/2024; patient kidney function did worsen. Had ordered urine and bladder ultrasound started IV fluid with consultation placed to nephrology. CODE STATUS was changed to DNR CC subsequently nephrology involved 5. Severe metabolic acidosis ? Secondary to MARYANA and sepsis plan is to treat the underlying etiology 6. Hyperkalemia ? Secondary to worsening kidney function. Initiated treatment with glucose insulin as well as calcium gluconate. An order has been given for an NG tube to be placed with Kayexalate administered the last order had to be canceled after patient was made DNR Comfort Care arrest 7. Suspected myxedema coma ? Patient has history of hypothyroidism With recent past history of myxedema coma. Repeated TSH stat given patient decreased level of sensorium to rule out myxedema coma if TSH is elevated plan will be to transfer patient to the intensive care unit. TSH apparently unable to be drawn by lab decision was therefore made to treat the patient empirically as a case of myxedema coma started patient on levothyroxine for 100 mcg x 1 and subsequently 100 mcg daily. Also started patient on hydrocortisone 100 mg nightly decision made to transfer to the intensive care ? 09/2024; patient TSH level not consistent with myxedema coma. 8. Class III obesity with BMI of 47.5 ? Complicating care 9. 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 Patient is on apixaban 10. Essential hypertension ? Plan is to resume patient oral medications once level of sensorium improves and patient is safe to take oral meds in the meantime ordered hydralazine 10 mg every 6 hours as needed for systolic blood pressure greater than 160 11. Diabetes mellitus type II with known complications including diabetic gastroparesis and diabetic polyneuropathy -patient's oral hypoglycemics held. Placed on, Accu-Cheks a.c. and at bedtime and covered with sliding scale insulin 12. Depression with anxiety ? Patient was on trazodone as well as citalopram held on admission given her decreased level of sensorium 13. Chronic pain syndrome ? Patient was on tramadol and tizanidine both held given her presentation 14. Obstructive sleep apnea ? Patient is apparently supposed to be on PAP therapy at night 15. COPD ? Currently not in exacerbation aerosol treatment as needed 16. DVT prophylaxis ? Patient is on apixaban Time spent in the patient's overall evaluation,decision-making process, review of diagnostic data, adjustment of management, discussion with other providers, nursing nursing and ancillary staff involved in patient's care documentation, 35 Minutes Medications at Discharge Home Medications insulin lispro 100 unit/mL subcutaneous pen (Humalog KwikPen (U-100) Insulin) 1 sliding scale dose subcut ACHS diabetes 06/27/24 rimegepant 75 mg disintegrating tablet (Nurtec ODT) 75 mg PO DAILY PRN migraine 06/27/24 citalopram 20 mg tablet 40 mg (2 x 20 mg) PO DAILY depression #1 TAB 08/08/24 budesonide-formoterol HFA 160 mcg-4.5 mcg/actuation aerosol inhaler (Symbicort) 2 puff inhalation BID 09/02/24 cyclobenzaprine 5 mg tablet 5 mg PO QPM 09/02/24 diclofenac sodium 3 % topical gel 1 ea topical BID PRN PRN pain (scale score 1- 3) 09/02/24 fluticasone propionate 50 mcg/actuation nasal spray,suspension 2 spray intranasal BID allergies 09/02/24 gabapentin 300 mg capsule 300 mg PO TID 09/02/24 galcanezumab-gnlm 120 mg/mL subcutaneous pen injector (Emgality Pen) 120 mg subcut QMONTH 09/02/24 ganciclovir 0.15 % eye gel (Zirgan) 1 drp RIGHT EYE .COMPLEX eye med 09/02/24 lorazepam 0.5 mg tablet 0.5 mg PO TID PRN anxiety 09/02/24 moxifloxacin 0.5 % eye drops 1 drp RIGHT EYE Q2H 09/02/24 atorvastatin 40 mg tablet 40 mg PO QHS cholestrol #90 tabs 09/24/24 isosorbide mononitrate 30 mg tablet,extended release 24 hr 30 mg PO DAILY #90 tabs 09/24/24 dicyclomine 20 mg tablet 20 mg PO Q6H PRN PRN abdominal discomfort #12 tabs 09/25/24 levothyroxine 200 mcg capsule 200 mcg PO QDAY 09/25/24 levothyroxine 25 mcg capsule 25 mcg PO QDAY 09/25/24 apixaban 5 mg tablet (Eliquis) 5 mg PO BID #180 tabs 10/09/24 losartan 100 mg tablet 100 mg PO QDAY 10/09/24 lactulose 10 gram/15 mL oral solution 20 g (30 mL) PO TID PRN PRN constipation #3,000 mL 10/10/24 oxycodone 5 mg tablet 5 mg PO Q4H PRN PRN Pain Score 6-10 3 days #18 tabs 10/10/24 ciprofloxacin HCl 0.3 % eye drops 2 drp RIGHT EYE 4X/DAY 10/16/24 tizanidine 2 mg tablet 2 mg PO BID muscle spasm 10/16/24 tobramycin 0.3 % eye drops 1 drp RIGHT EYE Q6H 10/16/24 tramadol 50 mg tablet 50 mg PO 4X/DAY PRN pain 10/16/24 Physical Exam Narrative GENERAL: Patient resting comfortably HEENT: Atraumatic; normocephalic EYES; Anicteric, Normal Conjunctiva NECK; supple, normal thyroid, RESPIRATORY: Diminished to auscultation CARDIOVASCULAR: Regular S1 S2, GI: soft, normoactive bowel sounds, : No Renal angle tenderness; EXTREMITIES: No edema, no clubbing, MUSCULOSKELETAL: no muscle wasting NEURO: No lateralizing signs SKIN: No Rash Weight / BMI Weight Weight: 125.4 kg Body Mass Index (BMI) 47.4 ABG / Lab / Microbiology Data 10/16/24 01:05 10/16/24 15:30 Laboratory: Laboratory Results - last 24 hr 10/16/24 02:40: Urine Color Angelica, Urine Clarity Cloudy, Urine pH 5.0, Ur Specific [place] 1.025, Urine Protein 100 H, Urine Glucose (UA) Normal, Urine Ketones 5 H, Urine Occult Blood 250 H, Urine Nitrite Positive H, Urine Bilirubin 1 H, Urine Urobilinogen 1 H, Ur Leukocyte Esterase 500 H, Urine RBC 0 SEEN, Urine WBC >100 SEEN, Ur Squamous Epith Cells 10-25 SEEN, Urine Bacteria 3+, Urine Mucus 0 SEEN 10/16/24 13:25: Sodium Cancelled, Potassium Cancelled, Chloride Cancelled, Carbon Dioxide Cancelled, Anion Gap Cancelled, BUN Cancelled, Creatinine Cancelled, Estim Creat Clear Calc Cancelled, Est GFR (MDRD) Non-Af Cancelled, BUN/Creatinine Ratio Cancelled, Glucose Cancelled, Calcium Cancelled, Phosphorus Cancelled, Magnesium Cancelled, Total Bilirubin Cancelled, AST Cancelled, ALT Cancelled, Alkaline Phosphatase Cancelled, Total Protein Cancelled, Albumin Cancelled, Globulin Cancelled, Albumin/Globulin Ratio Cancelled, TSH Cancelled 10/16/24 15:30: Sodium 128 L, Potassium 6.9 H*, Chloride 94 L, Carbon Dioxide 17.8 L, Anion Gap 16 H, BUN 59 H, Creatinine 6.30 H, Estim Creat Clear Calc 13.37 L, Est GFR (MDRD) Non-Af 7 L, BUN/Creatinine Ratio 9.3 L, Glucose 96, Calcium 8.3, Phosphorus 9.6 H*, Magnesium 2.2, Total Bilirubin 0.36, AST 58 H, ALT 18, Alkaline Phosphatase 170 H, Total Protein 5.4 L, Albumin 1.9 L, Globulin 3.6, Albumin/Globulin Ratio 0.5 L, TSH 9.430 H 10/16/24 17:23: POC Glucose 94 Microbiology: Microbiology 10/16/24 02:40 Urine, Catheterized Urine Culture - Preliminary GNR Poss Pseudomonas sp Meaningful Use Info Meaningful Use Meaningful Use Diagnoses (Choose all that apply): None applicable Discharge Plan Admission Admit Date/Time: 10/16/24 05:25 Attending Provider: Renzo Busch Primary Care Provider: Yair Pressley Consulting Providers: Yair Pressley; Renzo Wasserman; Renuka Banuelos; Nannette Stahl; Beverly Crawford; Steph Ackerman SEWER AND INSPECTOR; Chelsea Jules Discharge Orders/Prescriptions Prescriptions: No Action oxycodone 5 mg Tablet 5 mg PO Q4H PRN PRN (Reason: Pain Score 6-10) 3 Days Qty: 18 0RF lactulose 10 gram/15 mL solution 20 g PO TID PRN PRN (Reason: constipation) Qty: 3000 2RF Rx Instructions: titrate until 2-3 loose stools daily. tizanidine 2 mg tablet 2 mg PO BID ciprofloxacin HCl 0.3 % drops 2 drp RIGHT EYE 4X/DAY tobramycin 0.3 % drops 1 drp RIGHT EYE Q6H tramadol 50 mg tablet 50 mg PO 4X/DAY PRN (Reason: pain) Nurtec ODT 75 mg tablet,disintegrating 75 mg PO DAILY PRN (Reason: migraine) insulin lispro [Humalog KwikPen Insulin] 100 unit/mL Insulin Pen 1 sliding scale dose subcut [facility] Protocol: 2. Sliding Scale Insulin Low-Med Dosing Condition: 150-209 mg/dl = 1 unit Condition: 210-269 mg/dl = 2 units Condition: 270-329 mg/dl = 3 units Condition: 330-389 mg/dl = 4 units Condition: 390-449 mg/dl = 5 units Condition: Greater than 449 call physician Protocol Text: Suggested for: - Patients on Total Daily Insulin Dose of 28-36 units - Average body habitus patients LOW MEDIUM DOSING ALGORITHM citalopram 20 mg Tablet 40 mg PO DAILY Qty: 1 0RF diclofenac sodium 3 % gel 1 ea topical BID PRN PRN (Reason: pain (scale score 1-3)) cyclobenzaprine 5 mg tablet 5 mg PO QPM budesonide-formoterol [Symbicort] 160-4.5 mcg/actuation HFA aerosol inhaler 2 puff INHALATION BID lorazepam 0.5 mg tablet 0.5 mg PO TID PRN gabapentin 300 mg capsule 300 mg PO TID fluticasone propionate 50 mcg/actuation spray,suspension 2 spray INTRANASAL BID Zirgan 0.15 % gel 1 drp RIGHT EYE .COMPLEX Rx Instructions: 1 drp into the Right EYE 5x/day; Emgality Pen 120 mg/mL pen injector 120 mg SUBCUT QMONTH Patient Comments: INHALE 120 SUBCUTANEOUSLY (UNDER THE SKIN) 1 time a day EVERY 30 days FOR MIGRAINE moxifloxacin 0.5 % drops 1 drp RIGHT EYE Q2H dicyclomine 20 mg tablet 20 mg PO Q6H PRN PRN (Reason: abdominal discomfort) Qty: 12 0RF atorvastatin 40 mg tablet 40 mg PO QHS Qty: 90 3RF isosorbide mononitrate 30 mg tablet extended release 24 hr 30 mg PO DAILY Qty: 90 3RF levothyroxine 25 mcg capsule 25 mcg PO QDAY Rx Instructions: take 25mcg daily, in addition to 200mcg levothyroxine 200 mcg capsule 200 mcg PO QDAY Rx Instructions: take 200mcg daily, in addition to 25mcg Eliquis 5 mg tablet 5 mg PO BID Qty: 180 3RF losartan 100 mg tablet 100 mg PO QDAY Referrals / Follow Up: Nasreen Sutton MD [Med Staff - Customer Experience Retail Clerk] - Yair Pressley MD [Primary Care Provider] -
[2024-10-17 13:38] VITALS: BP 67/33; PULSE 81; RESP 15; TEMP 37.2; O2SAT 98
--- NOTE | 2024-10-17 15:33 | CHAPLAIN ---
Type of Pastoral Visit ___ Initial Visit ___ Follow-up Visit ___ On-call Visit ___ General Patient Visit ___ Spiritual Assessment ___ Family Conference ___ Bereavement ___ Rapid Response ___ Code Blue _x__ Other (describe below) Pastoral Care Referral From ___ Patient ___ Family ___ Nurse ___ Physician ___ Retirement Village Manager ___ Industrial/Organizational Psychologist _x__ Other (describe below) Sacrament/Intervention ___ Active listening ___ Anointing ___ Mosque ___ Bereavement ___ Communion ___ Janina exploration ___ ___ Life review _x__ Prayer ___ Reconciliation ___ Sacrament of Sick ___ Supportive presence ___ Wedding ___ Other (describe below) Pastoral Comments upon doing rounds in ICU this control panel operator crude unit recognized the bereavement cart at doorway of this room; SENIOR LEAD PROJECT MANAGER confirmed that patient is referred to hospice and transport to [facility] will occur later today; no family members are present at this time; pt is sleeping and does not awaken to her name; room is quiet; gave a silent prayer for the patient and left a calling card of presence to any family members that will return
== END 2024-10-17 17:50 | disposition hospice, inpatient (51) | DRG 689 ==
LOC: ED 04:52 → PCU 06:07 → ICU 17:17
PROVIDERS: Admitting Provider Family Medicine; Emergency Provider Emergency Medicine; PCP Family Medicine; Visit Provider Internal Medicine
DX: N39.0 Urinary tract infection, site not specified (principal); G93.41 Metabolic encephalopathy; C78.6 Secondary malignant neoplasm of retroperitoneum and peritoneum; N17.9 Acute kidney failure, unspecified; C22.9 Malignant neoplasm of liver, not specified as primary or secondary; Z68.42 Body mass index [BMI] 45.0-49.9, adult; E83.51 Hypocalcemia; K31.84 Gastroparesis; B96.5 Pseudomonas (aeruginosa) (mallei) (pseudomallei) as the cause of diseases classified elsewhere; E11.43 Type 2 diabetes mellitus with diabetic autonomic (poly)neuropathy; J44.9 Chronic obstructive pulmonary disease, unspecified; I10 Essential (primary) hypertension; F32.A Depression, unspecified; E87.5 Hyperkalemia; E11.649 Type 2 diabetes mellitus with hypoglycemia without coma; Z79.4 Long term (current) use of insulin; G47.33 Obstructive sleep apnea (adult) (pediatric); E11.42 Type 2 diabetes mellitus with diabetic polyneuropathy; F41.9 Anxiety disorder, unspecified; E78.00 Pure hypercholesterolemia, unspecified; E66.813 Obesity, class 3; G89.4 Chronic pain syndrome; Z66 Do not resuscitate; Z79.01 Long term (current) use of anticoagulants; Z79.51 Long term (current) use of inhaled steroids; Z79.84 Long term (current) use of oral hypoglycemic drugs; Z79.890 Hormone replacement therapy; Z79.899 Other long term (current) drug therapy; Z86.711 Personal history of pulmonary embolism; Z86.718 Personal history of other venous thrombosis and embolism
CPT/HCPCS: 36600; 51702; 71045; 74176; 80053; 81001; 82140; 82803; 82962; 83605; 83690; 83735; 84100; 84443; 85025; 85610; 85730; 87040; 87077; 87086; 87088; 87184; 87186; 93005; 94002; 94640; 94762; 99285; A4216; J0612